=== PATIENT | female | born 1960 | race Caucasian/White ===

== ENCOUNTER 2016-09-18 12:10 | Inpatient (IN) | payer BC, OTHER ==
[2016-09-12 08:47] VITALS: BMI 50.0
--- NOTE | 2016-09-12 09:26 | PAT Medication Instructions ---
Service Date Sep 12, 2016. Current Home Medication List Aspirin (Aspirin Chewable), 81 MG PO QPM Atorvastatin (Lipitor), 40 MG PO QAM Bupropion (Wellbutrin), 75 MG PO QAM Carvedilol (Coreg), 12.5 MG PO BID Cholecalciferol (Vitamin D3), 1 TAB PO QAM Citalopram Hydrobromide (Citalopram Hydrobromide), 40 MG PO QAM Doxycycline Hyclate (Doxycycline Hyclate), 20 MG PO QAM Ferrous Sulfate (Iron Supplement *), 325 MG PO HS Fish Oil ([place]-3), 1 CAPSULES PO HS Furosemide (Lasix), 40 MG PO QAM Gabapentin (Neurontin), 600 MG PO TID Hydralazine HCl (Hydralazine HCl), 50 MG PO TID Insulin Aspart (Novolog Flexpen), UNITS SC UD Insulin Glargine (Lantus), 50 UNITS SQ QAM Insulin Glargine (Lantus), 40 UNITS SQ HS Levothyroxine Sodium (Synthroid), 100 MCG PO QAM Losartan Potassium (Cozaar), 50 MG PO QAM Metronidazole Hcl (Metrogel), 1 APPL TOP BID Multiple Vitamin (Multivitamin), 1 TAB PO HS Pantoprazole (Protonix), 40 MG PO QAM Medication Instructions For Your Scheduled Surgery - Check with surgeon/supervisor residential for instructions: Aspirin (Aspirin Chewable), 81 MG PO QPM - Hold the following medications starting 09/12/2016: Fish Oil ([place]-3), 1 CAPSULES PO HS - Hold the following medications 24 hours prior to surgery: Metronidazole Hcl (Metrogel), 1 APPL TOP BID - Hold the following medications the morning of surgery: Losartan Potassium (Cozaar), 50 MG PO QAM Insulin Aspart (Novolog Flexpen), UNITS SC UD Furosemide (Lasix), 40 MG PO QAM Cholecalciferol (Vitamin D3), 1 TAB PO QAM - Take the following medications the morning of surgery with a sip of water: Pantoprazole (Protonix), 40 MG PO QAM Levothyroxine Sodium (Synthroid), 100 MCG PO QAM Hydralazine HCl (Hydralazine HCl), 50 MG PO TID Gabapentin (Neurontin), 600 MG PO TID Atorvastatin (Lipitor), 40 MG PO QAM Bupropion (Wellbutrin), 75 MG PO QAM Carvedilol (Coreg), 12.5 MG PO BID Citalopram Hydrobromide (Citalopram Hydrobromide), 40 MG PO QAM Doxycycline Hyclate (Doxycycline Hyclate), 20 MG PO QAM - Take the following medications as scheduled the night before surgery: Multiple Vitamin (Multivitamin), 1 TAB PO HS Insulin Glargine (Lantus), 40 UNITS SQ HS Insulin Aspart (Novolog Flexpen), UNITS SC UD Hydralazine HCl (Hydralazine HCl), 50 MG PO TID Gabapentin (Neurontin), 600 MG PO TID Carvedilol (Coreg), 12.5 MG PO BID Ferrous Sulfate (Iron Supplement *), 325 MG PO HS - For Insulin Dependent Diabetic patients: Test blood sugar A.M. of surgery. - If Blood sugar greater than 150, take half of your regular dose of: Insulin Glargine (Lantus), 25 units - If blood sugar less than 150, do not take any: Insulin Glargine (Lantus ) If you have any questions please call us at [phone] (Stephanie Zelaya PA-C) or [phone] or [phone]
[2016-09-12 10:46] LABS: URINE APPEARANCE CLEAR (CLEAR); URINE BILIRUBIN NEG (NEG); URINE COLOR YELLOW; URINE NITRITE NEG (NEG); URINE SPECIFIC GRAVITY 1.003 (1.000-1.030); UROBILINOGEN NEG (NEG)
[2016-09-12 10:47] LABS: BASO % 0.4 %; BASO ABS # 0.04 K/uL (0-0.2); COMPLETE YES; EOS % 1.3 %; HEMATOCRIT 34.9 % (37-47); IG% 0.3 %; LYMPH % 35.7 %; LYMPH ABS # 3.19 K/uL (1.2-3.4); MEAN CELL VOLUME 89.7 fL (80-100); MEAN CORPUSCULAR HEMOGLOBIN 29.3 pg (25-34); MEAN CORPUSCULAR HGB CONC 32.7 g/dl (32-36); MONO % 7.5 %; NEUT % 54.8 %; PLATELET COUNT 237 K/uL (130-400); RED BLOOD COUNT 3.89 M/uL (4.2-5.4); WHITE BLOOD COUNT 8.93 K/uL (4.8-10.8)
[2016-09-12 10:53] LABS: MANUAL MICROSCOPIC REQUIRED? NO; REVIEW REQ? NO
[2016-09-12 11:18] LABS: BUN/CREATININE RATIO 29.2 (10-20); CALCIUM 9.9 mg/dl (8.5-10.1); CREATININE 1.6 mg/dl (0.60-1.20); POTASSIUM 4.6 mmol/L (3.5-5.1)
--- NOTE | 2016-09-17 10:46 | HISTORY & PHYSICAL EXAMINATION ---
DATE OF ADMISSION: 09/18/2016 HISTORY OF PRESENT ILLNESS: The patient presents as a 55-year-old, 68-inch, 290-pound white female with right knee pain as well as left anterior knee hematoma. She presents for right knee arthroscopy with partial meniscectomy and left knee excision of hematoma. She has been nonresponsive to conservative therapy. She had a fall and sustained the above injuries. She has been ambulating with a crutch as well as even been wheelchair bound due to the bilateral nature of the problems. PAST MEDICAL HISTORY: Consistent with that of congestive heart failure in the past, hypertension, hypercholesterolemia, 3-1/2 months ago recent pneumonia, sleep apnea for which she uses a home CPAP, anxiety, diabetes for which she has been treated with insulin, as well as anemia. SOCIAL HISTORY: Otherwise unremarkable or noncontributory. She denies history of alcohol, recreational drug use or smoking. PAST SURGICAL HISTORY: Significant for breast biopsy, skin cancer, arthroscopic surgery right knee. FAMILY HISTORY: Unremarkable or noncontributory. ALLERGIES: CHIDI INHIBITORS. MEDICATIONS: Include Lantus 100 units every day, gabapentin 600 mg t.i.d., hydralazine 50 oral t.i.d., carvedilol 12.5 one p.o. b.i.d., furosemide 20 mg daily, Synthroid 200 mcg daily, Humalog 100 units on sliding scale as needed, aspirin 81 mg daily, Wellbutrin 75 mg p.o. every day. REVIEW OF SYSTEMS: Otherwise unremarkable. See history of present illness for pertinent positives. PHYSICAL EXAMINATION: GENERAL: A very pleasant 55-year-old white female with complaints of right knee pain and left knee pain as noted above. She has been nonresponsive to conservative therapy. HEENT: Otherwise unremarkable, atraumatic, normocephalic. Alert and oriented x3. HEART: Regular rate at 70 beats per minute. No murmurs noted. LUNGS: Clear. No rales, rhonchi or wheezes noted. ABDOMEN: Soft, nontender, nondistended. Bowel sounds are present in all 4 quadrants. RECTAL: No rectal examination was performed. MUSCULOSKELETAL: Consistent with that of right knee pain. Exam consistent with that of a torn medial meniscus with positive Amor and circumduction findings noted. Left knee hematoma status post contusion and fall. PLAN: For evacuation of hematoma left anterior knee and right knee arthroscopy. Postoperative pain management, DVT prophylaxis, antibiotics as noted above. MTDD
[2016-09-18] VITALS (10 sets, daily range): BP systolic 128–168; BP diastolic 52–76; PULSE 58–70; TEMP 36.4–37.2; O2SAT 92–100; Ht 162.6 cm; Wt 133.1 kg
[~2016-09-18] VITALS: Ht 162.6 cm; Wt 133.1 kg
--- NOTE | 2016-09-18 11:57 | History & Physical Bridge Note ---
H&P Re-Evaluation Bridge Note: I have examined the patient, reviewed the History & Physical and in the interval since the performance of the History & Physical I have noted the following changes of clinical significance: No changes noted
[~2016-09-18 12:10] MED LIST: ASPCH81X PO; BUPR75TA20 PO; CARV12.5 PO; CEFAZOLIN 3000 MG/65 ML D5W IV SCH; CHOL1000 PO; CITA40TA4 PO; DOXY20TA3 PO; FRRS300 PO; FURO40TA3 PO; GABA600T PO; HYDR100T3 PO; INSDGI SQ; LACTATED RINGER'S 1000ML 1,000 ML IV SCH; LEVO100T PO; LOSA50TA6 PO; LPT/40 PO; METR1GEL16 TOP; MULTTAB58 PO; NVLGI/PEN SC; OMEG10007 PO; PANT40TA PO
[2016-09-18] MEDS ORDERED: FENTANYL CITRATE INJ 50 MCG/1 ML 2 ML VIAL ONE ×3 (12:56→15:41)
[2016-09-18] MEDS ORDERED: MIDAZOLAM HCL 1 MG/ML 2ML VIAL ONE (12:56)
[2016-09-18] MEDS ORDERED: BUPIVACAINE/EPINEPHRINE 0.5% MPF 1:200,000 30 ML VIAL ONE (14:11)
[2016-09-18] MEDS ORDERED: BUPIVACAINE 0.5 % 5 MG/1 ML MPF 30ML VIAL ONE (14:12)
[2016-09-18] MEDS ORDERED: LIDOCAINE/EPINEPHRINE 1% 20 ML VIAL ONE (14:12)
[2016-09-18] MEDS ORDERED: BUPIVACAINE/EPINEPHRINE 0.25% 1:200,000 30 ML VIAL ONE (14:12)
[2016-09-18] MEDS ORDERED: BACITRACIN OINT 15 GM TUBE ONE (14:12)
[2016-09-18] MEDS ORDERED: EpHEDrine SULFATE INJ 50 MG/ML AMP IV PRN (14:15)
[2016-09-18] MEDS ORDERED: FENTANYL CITRATE INJ 50 MCG/1 ML 2 ML VIAL IV PRN (14:15)
[2016-09-18] MEDS ORDERED: ONDANSETRON INJ 2 MG/ML 2 ML VIAL IV PRN ×2 (14:15→15:00)
[2016-09-18] MEDS ORDERED: ATROPINE SULFATE 0.1 MG/ML 5ML SYR IV PRN (14:15)
[2016-09-18] MEDS ORDERED: SODIUM CHLORIDE 0.9% 1000ML 1,000 ML IV SCH (14:54)
[2016-09-18] MEDS ORDERED: HYDR-5688 PO (14:57)
[2016-09-18] MEDS ORDERED: SUCCINYLCHOLINE 100MG/5ML SYR IV ONE (15:00)
[2016-09-18] MEDS ORDERED: HYDROCODONE/ACETAMOPHEN 5/325MG TAB PO PRN ×2 (15:00→19:45)
[2016-09-18] MEDS ORDERED: LIDOCAINE HCL 2% 2 ML VIAL (20MG/ML) ONE (15:00)
[2016-09-18] MEDS ORDERED: ONDANSETRON INJ 2 MG/ML 2 ML VIAL ONE (15:00)
[2016-09-18] MEDS ORDERED: DEXAMETHASONE SOD INJ 4 MG/ML VIAL ONE (15:00)
[2016-09-18] MEDS ORDERED: EpHEDrine SULFATE 50MG/5ML SYR ONE (15:00)
[2016-09-18] MEDS ORDERED: PROPOFOL IV EMULSION 10 MG/ML 20 ML VIAL IV ONE (15:00)
--- NOTE | 2016-09-18 15:05 | Discharge Instructions ---
Discharge Instructions Visit Reason for Visit: Right Knee Medial Meniscal Tear, Left Knee Hematom Discharge Discharge Diagnosis / Problem: right knee meniscus tear, left lower leg hematoma Discharge Goals Goal(s): Decrease discomfort, Improve function, Increase independence Activity Recommendations Activity Limitations: as noted below Weightbearing Status: Left weightbearing (as tolerated), Right weightbearing ( as tolerated) Anesthesia . Post Anesthesia Instructions: If you have had General Anesthesia or IV Sedation: * Do not drive today. * Resume driving when surgeon permits. * Do not make important decisions or sign legal documents today. * Call surgeon for: 1. Temperature elevations greater than 101 degrees F. 2. Uncontrollable pain. 3. Excessive bleeding. 4. Persistent nausea and vomiting. 5. Medication intolerance (nausea, vomiting or rash). * For nausea and vomiting use only clear liquids such as: tea, soda, bouillon until nausea subsides, then gradually increase diet as tolerated. * If you have any concerns or questions, call your surgeon's office. If physician is unavailable and it is an emergency, call 911 or go to the nearest emergency room. . Instructions / Follow-Up Instructions / Follow-Up ACTIVITY RECOMMENDATIONS: * You may walk on the leg with or without crutches as comfort permits. * Bending of the knee should start at once. * Do not shower for 48 hours following surgery. SPECIAL CARE INSTRUCTIONS: * You may cleanse the skin adjacent to the small wounds with soap and water at the time of the first dressing change. * The application of an ice bag to the front and sides of the knee will decrease swelling and discomfort for the first 48 hours. * The small incisions may be sore and develop bruising. This bruising does not require any special care. * Leave the dressing on the left left in place until your follow up on 09/20/16. you may remove the dressing on the right knee as discussed above. SPECIAL PRECAUTIONS: * If you experience unusual pain unrelieved by prescriptions, temperature elevation (100 degrees F. or above) or progressive swelling or bleeding, you should contact our office at for further evaluation. * You may have been prescribed pain medication. If you experience nausea and/or fine skin rash, discontinue this medication and contact our office at for an alternate medication. DRESSING: * Dressing should be comfortable and absorb any leakage of fluid and/or blood. * The dressing may become moist or bloodstained. * Dressing may be removed _48 hours_ after surgery and bandaids placed over the small surgical incisions. If can be removed sooner if it becomes very soiled or loose. * Bandaids may be used over next several days as needed and can be discontinued when there is not further drainage from the wounds. FOLLOW UP VISIT: Please follow up on 09/20/16 at 8:30 to have your drain removed You should have an appointment in two weeks for suture removal, if not already made, please call number below to schedule. Please call [facility] to make a follow-up appointment for your surgery at . Pending Studies Studies pending at discharge: no Medical Emergencies . Who to Call and When: Medical Emergencies: If at any time you feel your situation is an emergency, please call 911 immediately. . Non-Emergent Contact Non-Emergency issues call your: Primary Care Provider, Surgeon . . "Provider Documentation" section prepared by Luis Fernando Vallejo. [place] Drug Monitoring Program Search Results: patient reviewed within database, no issues identified
--- NOTE | 2016-09-18 15:32 | [facility] Post Operative Brief Note ---
Immediate Operative Summary Operative Date Sep 18, 2016. Pre-Operative Diagnosis Right Knee Torn Medial and Lateral Meniscus, Grade 4 Medial and Femoral Chondyle, Left Knee Hematoma Post-Operative Diagnosis Right Knee Torn Medial and Lateral Meniscus, Grade 4 Medial and Femoral Chondyle, Left Knee Hematoma Procedure(s) Performed Right Knee Arthroscopy with Partial Medial and Lateral Menisectomy, Left Knee Excision Hematoma (Anterior/Medial) Surgeon Dr. De La Cruz Manufacturing Operations Manager Surgeon(s) none Estimated Blood Loss 2cc rt 5 cc left Findings tmm rt knee hematoma left ant leg Specimens none per surgeon Complication(s) None Disposition Recovery Room / PACU
--- NOTE | 2016-09-18 16:35 | OPERATIVE REPORT ---
DATE OF OPERATION: 09/18/2016 PREOPERATIVE DIAGNOSES: Right knee torn medial meniscus, left anterior proximal tibia hematoma. POSTOPERATIVE DIAGNOSES: Right knee torn medial meniscus, torn lateral meniscus, grade 3 and 4 chondral lesion medial femoral condyle, patellofemoral joint; left knee hematoma anterior proximal tibia. SURGEON: Dr. De La Cruz. ANESTHESIA: General. COMPLICATIONS: None. GROSS FINDINGS: The patient is a very pleasant 55-year-old white female who presents after having had a fall, sustaining the above injuries and the hematoma which was not resolving. She presents for evacuation of hematoma as well as arthroscopy, right knee. DESCRIPTION OF PROCEDURE: After proper prepping and draping of the bilateral lower extremities, arthroscopic examination of the right knee reveals there to be evidence of a tear of the posterior horn of the medial meniscus as well as tear of the posterior horn of the lateral meniscus. Subsequently, partial posterior horn medial and lateral meniscectomies were performed. There was a chondral lesion grade 3 and 4 in nature involving the medial femoral condyle, 1 x 2 cm as well as 1 x 1 cm involving the patellofemoral joint. Subsequently, a chondroplasty was performed in both the compartments. All particulate matter and debris was removed. Skin portals were closed with 4-0 nylon. Sterile compressive dressing was placed. The left knee had a 2 cm incision placed over the proximal anteromedial tibia. Dissection through subcutaneous tissues revealed there to be evidence of a clot of hematoma material which was evacuated. It was irrigated with 3 liters of sterile saline solution. The wound was closed with 3-0 Vicryl and 3-0 nylon. A medium bore Hemovac was placed in the deep wound. Wound was subsequently dressed with sterile compressive dressings. The patient was taken to recovery room in stable condition. I attest to the content of the Intraoperative Record and any orders documented therein. Any exceptio ns are noted below.
--- NOTE | 2016-09-18 16:50 | Anesthesiology Progress Note ---
Anesthesia Post Op Note Date & Time Sep 18, 2016 at 16:50 Vital Signs Pain Intensity: 0 Vital Signs Past 12 Hours Date Time Temp Pulse Resp B/P Pulse Ox O2 Delivery O2 Flow Rate FiO2 09/18/16 16:30 60 13 160/69 99 Nasal Cannula 2 09/18/16 16:15 63 15 161/68 99 Nasal Cannula 2 09/18/16 16:05 36.7 64 16 156/68 100 Nasal Cannula 2 09/18/16 15:55 60 15 165/71 100 Mask 10 09/18/16 15:45 63 14 152/79 100 Mask 10 09/18/16 15:36 36.7 63 16 161/73 100 Mask 10 09/18/16 12:29 37.2 62 18 148/52 99 Room Air Notes Mental Status: alert / awake / arousable, participated in evaluation Pt Amnestic to Procedure: Yes Nausea / Vomiting: adequately controlled Pain: adequately controlled Airway Patency, RR, SpO2: stable & adequate BP & HR: stable & adequate Hydration State: stable & adequate Anesthetic Complications: no major complications apparent
[2016-09-18] MEDS: HYDROCODONE/ACETAMOPHEN 5/325MG TAB PO PRN (16:54)
[2016-09-18] MEDS ORDERED: NURSING VERBAL MED ORDER ONE ×2 (18:00→18:15)
[2016-09-18] MEDS ORDERED: MoRPHine SULFATE 2 MG/ML CARP ONE (18:05)
[2016-09-18] MEDS ORDERED: KETOROLAC TROMETHAMINE 30 MG/ML VIAL IV. PRN (18:15)
[2016-09-18] MEDS ORDERED: MoRPHine SULFATE 2 MG/ML CARP IV PRN (18:15)
[2016-09-18] MEDS ORDERED: PHARMACY GLYCEMIC MGMT CONSULT PRN (19:02)
[2016-09-18] MEDS ORDERED: GLUCAGON FOR INJ 1 MG VIAL SQ PRN (19:15)
[2016-09-18] MEDS ORDERED: GLUCOSE 40% GEL 15 GM TUBE PO PRN (19:15)
[2016-09-18] MEDS ORDERED: GLUCOSE 10 TABS/TUBE PO PRN (19:15)
[2016-09-18] MEDS ORDERED: DEXTROSE 50% 50 ML SYR IV PRN (19:15)
[2016-09-18] MEDS: INSULIN ASPART 100 UNITS/ML 3 ML PEN SC SCH ×2 (20:06→20:54)
--- NOTE | 2016-09-18 20:35 | Pharmacy Progress Note ---
Glycemic Control Intl Consult Date of Service Sep 18, 2016. Scope Glycemic Pharmacist consulted by Dr Valenzuela on 09/18/16 for glycemic control and to write orders per [facility] inpatient glycemic control protocol Objective Weight (Kilograms): 133.100 Accuchecks BSG (last 24hrs): Test 09/18/16 12:41 09/18/16 15:41 09/18/16 19:11 Bedside Glucose 223 mg/dl (70-90) 173 mg/dl (70-90) 185 mg/dl (70-90) HbA1c 7.2% in 05/2016 Recent Pertinent Medications Outpatient Anti-diabetic Regimen: * Lantus 50 units SQ AM + 40 units SQ PM * NovoLog per Scale as directed Risk Factors for Insulin Resistance: * Steroids pre-operatively * IVF * Recent Surgery * Diet Assessment & Plan ASSESSMENT: * 55yo T2DM female with presumed adequate outpatient diabetes control per recent A1c in 05/2016 (7.2%) * This result is outdated - will re-order per protocol * Pt is maintained on SQ basal bolus insulin regimen of 100+ units/day * Expect inpatient regimen to be slightly less than this based on controlled CHO/diet inhouse. Pt uses very large doses of basal insulin which may be covering some prandial needs considering her weight/BMI * Pt did receive one dose of dexamethasone IV intraoperatively. Steroids have their most profound effect on post-prandial hyperglycemia which is best controlled with NovoLog dosing per aggressive CF/CR. So far, BSGs only slightly above goal range despite dexamethasone. Will omit RTC checks + coverage. * ADA & AACE recommend a goal blood sugar range 140-180 mg/dl for the majority of critically ill & non-critically ill patients. However, more stringent targets may be selected in individual cases. Will utilize more stringent goal of 110-140mg/dl based on patient age & comorbidities. Additionally, tighter glycemic control is warranted to facilitate wound/infection healing post- operatively. PLAN FOR INPATIENT GLYCEMIC CONTROL: Resume SQ basal bolus insulin regimen similar to outpatient dosing - adjusted slightly for decreased PO intake as compared to outpatient and stress/surgery. * Basal insulin with LANTUS 30 units SQ BID * Correctional Insulin with NOVOLOG per scale ACHS or Q6hrs while NPO * Goal Range: Low 110 mg/dL - High 140 mg/dL * Correction Factor: 10 mg/dL/unit * Nutritional / Prandial insulin per carb ratio of 1 unit per 4 grams CHO consumed * Titrate insulin regimen based on BSG trends and changes in risk factors for insulin resistance * Order A1c with AM labs per protocol * Add to discharge instructions to be communicated to PCP * Please note that the plan above was derived based on current level of insulin resistance and hospital stress. These recommendations are appropriate for inpatient admission only. Plan of care upon discharge will need to be reassessed to avoid potential outpatient hypo/hyperglycemia. Thank you.
[2016-09-18] MEDS: OXYCODONE HCL IR 5 MG TAB (IMMEDIATE RELEASE) PO PRN (20:46)
[2016-09-18] MEDS: GABAPENTIN 600 MG TAB PO SCH (20:52)
[2016-09-18] MEDS: CARVEDILOL 12.5 MG TAB PO SCH (20:53)
[2016-09-18] MEDS: METRONIDAZOLE 0.75% TOPICAL GEL 45 GM TUBE TOP SCH (20:55)
[2016-09-18] MEDS ORDERED: FERROUS SULFATE 325 MG TAB PO SCH (21:00)
[2016-09-18] MEDS ORDERED: INSULIN GLARGINE SOLOSTAR 100 UNITS/ML 3 ML PEN SC SCH ×2 (21:00)
[2016-09-18] MEDS ORDERED: ASPIRIN 81 MG ECTAB PO SCH (21:00)
[2016-09-18] MEDS ORDERED: INSULIN GLARGINE SOLOSTAR 100 UNITS/ML 3 ML PEN SC ONE (21:15)
[2016-09-19] MEDS: OXYCODONE HCL IR 5 MG TAB (IMMEDIATE RELEASE) PO PRN (02:30)
[2016-09-19 03:25] VITALS: BP 127/72; PULSE 68; TEMP 36.7; O2SAT 91
[2016-09-19] MEDS ORDERED: LEVOTHYROXINE 100 MCG TAB PO SCH (06:00)
[2016-09-19 07:14] VITALS: BP 152/71; PULSE 65; TEMP 36.6; O2SAT 95
--- NOTE | 2016-09-19 07:51 | Orthopedic Progress Note ---
Orthopedic Progress Note Date of Service Sep 19, 2016. Subjective Post OP Day: 1 Reports: feeling well, pain controlled w PO medications, Denies: SOB, calf pain , chest pain, complaints, light headedness, nausea / vomiting Objective calves soft nontender, N/V intact, capillary refill less than 2 sec., dressing C /D/I, A&O x3, toes mobile Date Time Temp Pulse Resp B/P Pulse Ox O2 Delivery O2 Flow Rate FiO2 09/19/16 07:14 36.6 65 16 152/71 95 Room Air 09/19/16 03:25 36.7 68 16 127/72 91 Room Air 09/18/16 23:20 36.4 61 16 128/69 94 Room Air 09/18/16 21:35 36.5 58 16 130/75 92 Room Air 09/18/16 20:46 37.1 62 18 133/76 95 Room Air 09/18/16 19:59 36.7 58 16 133/75 99 Nasal Cannula 2.0 09/18/16 19:30 Nasal Cannula 2.0 09/18/16 19:19 99 Nasal Cannula 2.0 09/18/16 19:19 37.0 63 16 133/74 100 Nasal Cannula 09/18/16 18:55 37.2 70 16 162/75 99 Nasal Cannula 2.0 09/18/16 18:00 37.1 68 18 163/64 98 Nasal Cannula 2 09/18/16 17:10 37.1 59 18 168/68 99 Nasal Cannula 2 09/18/16 16:40 37.1 62 16 147/63 99 Nasal Cannula 2 09/18/16 16:30 60 13 160/69 99 Nasal Cannula 2 09/18/16 16:15 63 15 161/68 99 Nasal Cannula 2 09/18/16 16:05 36.7 64 16 156/68 100 Nasal Cannula 2 09/18/16 15:55 60 15 165/71 100 Mask 10 09/18/16 15:45 63 14 152/79 100 Mask 10 09/18/16 15:36 36.7 63 16 161/73 100 Mask 10 09/18/16 12:29 37.2 62 18 148/52 99 Room Air Assessment & Plan Assessment: POD #1 s/p right knee scope, left tibia hematoma i&d -pain better controlled -stable for d/c this morning -will change dressings and remove drain prior to d/c
[2016-09-19 08:10] LABS: ESTIMATED AVERAGE GLUCOSE 166 mg/dl; HA1C FLAG Normal (Normal)
[2016-09-19] MEDS: CARVEDILOL 12.5 MG TAB PO SCH (08:32)
[2016-09-19] MEDS: GABAPENTIN 600 MG TAB PO SCH (08:33)
[2016-09-19] MEDS: METRONIDAZOLE 0.75% TOPICAL GEL 45 GM TUBE TOP SCH (08:37)
[2016-09-19] MEDS ORDERED: CITALOPRAM 40 MG TAB PO SCH (09:00)
[2016-09-19] MEDS ORDERED: FUROSEMIDE 40 MG TAB PO SCH (09:00)
[2016-09-19] MEDS ORDERED: PANTOprazole SOD 40 MG TAB PO SCH (09:00)
[2016-09-19] MEDS ORDERED: OMEGA-3 (PURIFIED FISH OIL) 1 GM CAP PO SCH (09:00)
[2016-09-19] MEDS ORDERED: CHOLECALCIFEROL 1000 INTER.UNIT TAB PO SCH (09:00)
[2016-09-19] MEDS ORDERED: ATORVASTATIN 40 MG TAB PO SCH (09:00)
[2016-09-19] MEDS ORDERED: INSULIN GLARGINE SOLOSTAR 100 UNITS/ML 3 ML PEN SC SCH ×2 (09:00→21:00)
[2016-09-19] MEDS ORDERED: MULTIVITAMIN TAB PO SCH (09:00)
[2016-09-19] MEDS ORDERED: LOSARTAN POTASSIUM 50 MG TAB PO SCH (09:00)
[2016-09-19] MEDS: INSULIN ASPART 100 UNITS/ML 3 ML PEN SC SCH (09:20)
[2016-09-19 09:52] VITALS: BP 152/71; PULSE 65; TEMP 36.6; O2SAT 95
[2016-09-19] MEDS: HYDROCODONE/ACETAMOPHEN 5/325MG TAB PO PRN (10:07)
--- NOTE | 2016-09-24 17:47 | Discharge Summary ---
Orthopedic Discharge Summary Admission Date/Reason Sep 18, 2016 at 12:20 Right Knee Medial Meniscal Tear, Left Knee Hematom. Discharge Date/Disposition Sep 19, 2016 Home Diagnosis Principal Diagnosis: right knee scope partial meniscectomy, evacuation hematoma left lower leg Procedure(s) Performed Right Knee Arthroscopy with Partial Medial and Lateral Menisectomy, Left Knee Excision Hematoma (Anterior/Medial) Consultations NONE Medication Reconciliation New Medications: Hydrocodone/Acetaminophen 5MG/325MG ([place] 5MG/325MG) Tab 1-2 TABLETS PO q4-6 hours PRN for Pain, #30 TAB Continued Medications: Aspirin (Aspirin Chewable) 81 Mg Chew 81 MG PO QPM, TAB Atorvastatin (Lipitor) 40 Mg Tab 40 MG PO QAM, TAB Bupropion (Wellbutrin) 75 Mg Tab 75 MG PO QAM, TAB Carvedilol (Coreg) 12.5 Mg Tab 12.5 MG PO BID, TAB Cholecalciferol (Vitamin D3) 1,000 Unit Tab 1 TAB PO QAM for 30 Days, #30 TAB 5 Refills Citalopram Hydrobromide (Citalopram Hydrobromide) 40 Mg Tab 40 MG PO QAM Doxycycline Hyclate (Doxycycline Hyclate) 20 Mg Tab 20 MG PO QAM Ferrous Sulfate (Iron Supplement *) 325 Mg Tab 325 MG PO HS, 0 Refills Fish Oil ([place]-3) 1 Ea Cap 1 CAPSULES PO HS, 0 Refills Furosemide (Lasix) 40 Mg Tab 40 MG PO QAM, TAB Gabapentin (Neurontin) 600 Mg Tab 600 MG PO TID, TAB Hydralazine HCl (Hydralazine HCl) 100 Mg Tab 50 MG PO TID Insulin Aspart (Novolog Flexpen) 100 Units/Ml Inj UNITS SC UD Inject as directed per sliding scale. Insulin Glargine (Lantus) 100 Unit/Ml Inj 50 UNITS SQ QAM Insulin Glargine (Lantus) Vial 40 UNITS SQ HS, VIAL Levothyroxine Sodium (Synthroid) 100 Mcg Tab 100 MCG PO QAM, TAB Losartan Potassium (Cozaar) 50 Mg Tab 50 MG PO QAM, TAB Metronidazole Hcl (Metrogel) 180 Appln/60 Gm Gel 1 APPL TOP BID TO FACIAL BUMPS Multiple Vitamin (Multivitamin) 1 Tab Tab 1 TAB PO HS, TAB Pantoprazole (Protonix) 40 Mg Tab 40 MG PO QAM, #30 TAB Admission Physical Exam As per Admitting History & Physical. Hospital Course please see daily progress notes for complete details. Discharge Instructions Please refer to the electronic Patient Visit Report (Discharge Instructions) for additional information.
[2016-12-22] MEDS ORDERED: PRT/40 PO (07:11)
[2016-12-22] MEDS ORDERED: DAPA1TAB2 PO (07:13)
[2016-12-23] MEDS ORDERED: INSDGI SQ (13:41)
[2016-12-23] MEDS ORDERED: PANT1TAB48 PO (17:23)
== END 2016-09-19 10:35 | disposition home or self-care (01) | DRG 489 ==
LOC: ENRESERVTM → ENRESERVDT → C.ACU 12:10 → C.3E 12:20
PROVIDERS: ADMIT Orthopaedic Surgery; ATTEND Orthopaedic Surgery
PROC: 0SBC4ZZ Excision of Right Knee Joint, Percutaneous Endoscopic Approach (ICD-10-PCS; principal; 2016-09-18 14:00)
PROC: 0QC Lower Bones, Extirpation (ICD-10-PCS; principal; 2016-09-18 14:00)
DX: S83.241A Other tear of medial meniscus, current injury, right knee, initial encounter (principal); S83.281A Other tear of lateral meniscus, current injury, right knee, initial encounter; M94.8X6 Other specified disorders of cartilage, lower leg; T14.8 Other injury of unspecified body region; I11.0 Hypertensive heart disease with heart failure; I50.9 Heart failure, unspecified; G47.30 Sleep apnea, unspecified; E11.9 Type 2 diabetes mellitus without complications; Z79.899 Other long term (current) drug therapy; Z79.4 Long term (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 insulin; Z79.82 Long term (current) use of aspirin; Z87.01 Personal history of pneumonia (recurrent); Z85.828 Personal history of other malignant neoplasm of skin; W19.XXXA Unspecified fall, initial encounter; Y99.8 Other external cause status

== ENCOUNTER → 2016-11-13 | Outpatient (CLI) | payer BC ==
[~2016-11-13] MED LIST changes: +CALC-20 PO; +CALC1CAP36 PO; -CEFAZOLIN 3000 MG/65 ML D5W IV SCH; +CLOB-77 TOP; +DAPA1TAB8 PO; +FRS/40 PO; +FURO-85 PO; +HYDR-5688 PO; +INSDGI SC; +INSU100I SQ; +ISOS60TA25 PO; -LACTATED RINGER'S 1000ML 1,000 ML IV SCH; +METF-384 PO; +METR0.7527; +METROGEL 1%; +PANT1TAB48 PO; +PANT40TA2 PO; +SIMV20TA2 PO; +TRAM-10 PO; +WLLSR100 PO
--- NOTE | 2016-11-13 13:15 | DIAGNOSTIC IMAGING REPORT ---
ULTRASOUND LEFT LOWER EXTREMITY VENOUS CLINICAL HISTORY: Left leg pain and swelling. COMPARISON STUDY: Bilateral lower extremity venous ultrasound dated 02/23/2013. TECHNIQUE: Real-time, grayscale, and color Doppler sonography of the deep veins of the left lower extremity was performed from the inguinal crease to the calf. Compression and augmentation were utilized. FINDINGS: There is no sonographic evidence of deep venous thrombosis identified in the left lower extremity. The common femoral, superficial femoral, and popliteal veins are patent and normally compressible. The greater saphenous vein and the profunda femoris vein at the junction with the common femoral vein are clear. The visualized calf veins are patent. IMPRESSION: There is no sonographic evidence of deep venous thrombosis identified in the left lower extremity. Electronically signed by: Marco Antonio Martins M.D. 11/13/2016 1:13 PM Dictated Date/Time: 11/13/2016 1:13 PM
== END | disposition home or self-care (01) ==
LOC: C.ULTRBC 12:49
PROVIDERS: ATTEND Physician Assistant
DX: M79.662 Pain in left lower leg (principal); M79.89 Other specified soft tissue disorders

== ENCOUNTER 2016-12-22 05:59 | Observation (INO) | payer BC ==
[2016-12-22] VITALS (8 sets, daily range): BP systolic 132–145; BP diastolic 54–78; PULSE 51–59; TEMP 36.4–36.7; O2SAT 95–98; Ht 162.6 cm; Wt 132.4 kg
[~2016-12-22] VITALS: Ht 162.6 cm; Wt 132.4 kg
[~2016-12-22 05:59] MED LIST changes: -CALC-20 PO; -CALC1CAP36 PO; -CLOB-77 TOP; -DAPA1TAB8 PO; -FRS/40 PO; -FURO-85 PO; -INSDGI SC; -INSU100I SQ; -ISOS60TA25 PO; -METF-384 PO; -METR0.7527; -METROGEL 1%; -PANT1TAB48 PO; -PANT40TA2 PO; -SIMV20TA2 PO; -TRAM-10 PO; -WLLSR100 PO
[2016-12-22] MEDS ORDERED: MoRPHine SULFATE 4 MG/ML 1 ML CARP\\VIAL IV STA (06:23)
[2016-12-22] MEDS ORDERED: ASPIRIN 324 MG CHEW PO STA (06:23)
[2016-12-22] MEDS ORDERED: ONDANSETRON INJ 2 MG/ML 2 ML VIAL IV STA (06:24)
[2016-12-22] MEDS ORDERED: NITROGLYCERIN 0.4 MG SL PER TAB CHARGE ONE (06:33)
--- NOTE | 2016-12-22 06:46 | EMERGENCY ROOM VISIT NOTE ---
History First contact with patient: 06:37 Chief Complaint: SHORTNESS OF BREATH Stated Complaint: HARD TIME BREATHING,HX OF HEART FAILURE Nursing Triage Summary: Pt presents for evaluation of sob and increased swelling in B/L LE. Increased edema x 1 week, primary increased lasix dose. This am awoke with increased sob. History of Present Illness The patient is a 56 year old female who presents to the Emergency Room with complaints of chest pain and shortness of breath starting this morning at 4: 30am. Chest pain woke her up, sharp on deep breathing and reproducible. No radiation. No cough, cold, fever. Associated with sweating and shortness of breath. She currently feels as if she cannot catch her breath. She reportedly had a normal cardiac cath 2 years previously, stress test 1 year previously was also normal and she is scheduled for a stress test tomorrow as pre-op workup for bariatric surgery. She took all her usual morning medications. She denies any orthopnea, PND or palpitations. She has noticed an increase in her leg swelling bilaterally over the last week. Father had x2 MIs in his 40's with CABG and stents placed and her sister has lots of heart issues (pacemaker, [place]). Review of Systems GENERAL: weight gain 12lb in the last week, trying to current lose weight for bariatric surgery EENT: normal NEURO: feels weak on her right side with change in sensation and confused but unable to elaborate on this CARDIO: see HPI PULM: no cough, fever, GI: acid reflux, denies abdominal pain, change in bowel habit or GI bleeding : passing more urine than normal, increased smell and darker in color, since last Fri. MSK: Denies musculoskeletal pain Psych: depression under control with medication Past Medical/Surgical History Medical Problems: (1) CHRONIC KIDNEY DISEASE, STAGE III (MODERATE) (2) CONGESTIVE HEART FAILURE NOS (3) DEPRESSIVE DISORDER NEC (4) DIAB JOSE A WO COMPL, TYPE II OR UNSPEC TYPE, NOT UNCNTRLD (5) DIABETIC RETINOPATHY NOS (6) DIVERTICULOSIS COLON (W/O MENT OF HEMORRHAGE) (7) Endometrial carcinoma (8) History of melanoma (9) HYPERLIPIDEMIA NEC/NOS (10) HYPERTENSION NOS (11) HYPOTHYROIDISM NOS (12) IRON DEFIC ANEMIA NOS (13) LUMBOSACRAL SPONDYLOSIS (14) MORBID OBESITY (15) NEUROPATHY IN DIABETES (16) ROSACEA (17) SOB (shortness of breath) Surgical Problems: (1) Abdominal hysterectomy (2) H/O esophagogastroduodenoscopy (3) Hx of cardiac cath (4) S/P knee surgery (5) Tonsillectomy Family History Cancer FATHER (Melenoma ) Diabetes mellitus Heart disease FATHER SISTER Hypertension Lung disease Social History Smoking Status: Never Smoker Smokeless Tobacco Use: No Alcohol Use: occasionally Drug Use: none Marital Status: Housing Status: lives with family Occupation Status: employed Current/Historical Medications Scheduled Aspirin (Aspirin Chewable), 81 MG PO QPM Bupropion HCl (Bupropion HCl Sr), 200 MG PO DAILY Calcitriol (Calcitriol), PO UD Calcium Carbonate-Vitamin D (Calcium 600 + D), 1 TAB PO DAILY Carvedilol (Coreg), 12.5 MG PO BID Cholecalciferol (Vitamin D3), 1 TAB PO QAM Citalopram Hydrobromide (Citalopram Hydrobromide), 40 MG PO QAM Clobetasol Propionate (Temovate), 1 APPLN TOP DAILY Dapagliflozin Propanediol (Farxiga), 10 MG PO DAILY Ferrous Sulfate (Ferrous Sulfate), 325 MG PO DAILY Fish Oil ([place]-3), 1 CAP PO DAILY Furosemide (Lasix), 40 MG PO UD Gabapentin (Neurontin), 600 MG PO TID Hydralazine HCl (Hydralazine HCl), 50 MG PO TID Insulin Glargine (Lantus), 100 UNITS SQ DAILY Insulin Lispro (Human) (Humalog), SQ ACHS Isosorbide Mononitrate Ext Rel (Imdur Ext Rel), 60 MG PO QAM Levothyroxine Sodium (Synthroid), 100 MCG PO QAM Metformin Hcl (Glucophage), 1,000 MG PO DAILY Multiple Vitamin (Multivitamin), 1 TAB PO HS Pantoprazole (Pantoprazole Sodium), 40 MG PO DAILY Simvastatin (Zocor), 20 MG PO QPM [Metrogel 1%], 1 APPLN DAILY Scheduled PRN Tramadol (Ultram), 50 MG PO Q4H PRN for Pain Allergies Coded Allergies: CHIDI Inhibitors (Verified Adverse Reaction, Mild, COUGH, 12/22/16) Physical Exam Vital Signs Date Time Temp Pulse Resp B/P (MAP) Pulse Ox O2 Delivery O2 Flow Rate FiO2 12/22/16 08:29 56 12/22/16 07:22 55 16 153/73 97 Room Air 12/22/16 07:08 57 18 157/53 97 Room Air 12/22/16 06:21 58 12/22/16 06:18 100 Room Air 12/22/16 06:10 99 Room Air 12/22/16 06:10 36.3 58 18 180/75 99 Room Air Pain Rating (0-10): 5 Physical Exam VITAL SIGNS: were reviewed as above GENERAL: obese female lying in bed, out of proportion pain on cannula insertion , hyperventilating, no acute distress SKIN: Warm dry and pink, no rashes HEAD: Normocephalic and atraumatic EYES: extraocular muscles intact, pupils equal and reactive to light OROPHARYNX: non erythematous, clear and moist NECK: Supple, no adenopathy or meningismus LUNGS: clear to auscultation, no accessory muscle use, hyperventilating HEART: Regular rate and rhythm, heart sounds 1+2, no murmurs ABDOMEN: Soft with mild epigastric and left upper quadrant and suprapubic without guarding or rebound tenderness, bowel sounds normal BACK: mild left sided CVA tenderness, none right sided EXTREMITIES: Warm and well perfused, no calf tenderness, chronic increased swelling on left side compared to right, pitting edema b/l 2+ to knees. NEUROLOGICALLY: Awake alert and oriented without focal deficit. Cranial nerves 2 -12 intact. Cerebellar testing is within normal limits. There is no nystagmus. There is no facial droop. Speech is clear. Vision is grossly normal. MUSCULOSKELETAL: Good muscle tone. No evidence of trauma Medical Decision & Procedures ER Provider Diagnostic Interpretation: SINGLE VIEW CHEST CLINICAL HISTORY: Atypical chest pain. Dyspnea. FINDINGS: An AP, portable, upright chest radiograph is compared to study dated 06/09/2016. The examination is degraded by portable technique, large body habitus, and patient rotation. The cardiomediastinal silhouette is unremarkable. There is mild atherosclerotic calcification of the thoracic aorta. The lungs and pleural spaces are clear. No pneumothorax is seen. The skeletal structures are osteopenic. Degenerative change is noted in the thoracic spine. IMPRESSION: No active disease in the chest. Electronically signed by: Marco Antonio aMrtins M.D. 12/22/2016 7:52 AM Dictated Date/Time: 12/22/2016 7:52 AM Laboratory Results 12/22/16 06:50 Red Blood Count 4.25, Mean Corpuscular Volume 89.2, Mean Corpuscular Hemoglobin 27.5, Mean Corpuscular Hemoglobin Concent 30.9, Mean Platelet Volume 9.7, Neutrophils (%) (Auto) 56.7, Lymphocytes (%) (Auto) 34.3, Monocytes (%) (Auto) 6.9, Eosinophils (%) (Auto) 1.6, Basophils (%) (Auto) 0.3, Neutrophils # (Auto) 5.35, Lymphocytes # (Auto) 3.23, Monocytes # (Auto) 0.65, Eosinophils # (Auto) 0.15, Basophils # (Auto) 0.03 12/22/16 06:50 Test 12/22/16 00:00 12/22/16 06:13 12/22/16 06:50 12/22/16 07:35 Urine Color YELLOW Urine Appearance CLEAR (CLEAR) Urine pH 7.0 (4.5-7.5) Urine Specific [place] 1.009 (1.000-1.030) Urine Protein NEG (NEG) Urine Glucose (UA) NEG (NEG) Urine Ketones NEG (NEG) Urine Occult Blood NEG (NEG) Urine Nitrite NEG (NEG) Urine Bilirubin NEG (NEG) Urine Urobilinogen NEG (NEG) Urine Leukocyte Esterase NEG (NEG) Urine WBC (Auto) 1-5 /hpf (0-5) Urine RBC (Auto) 0-4 /hpf (0-4) Urine Hyaline Casts (Auto) 0 /lpf (0-5) Urine Epithelial Cells (Auto) 5-10 /lpf (0-5) Urine Bacteria (Auto) NEG (NEG) Bedside Glucose 96 mg/dl (70-90) White Blood Count 9.43 K/uL (4.8-10.8) Red Blood Count 4.25 M/uL (4.2-5.4) Hemoglobin 11.7 g/dL (12.0-16.0) Hematocrit 37.9 % (37-47) Mean Corpuscular Volume 89.2 fL (80-100) Mean Corpuscular Hemoglobin 27.5 pg (25-34) Mean Corpuscular Hemoglobin Concent 30.9 g/dl (32-36) Platelet Count 286 K/uL (130-400) Mean Platelet Volume 9.7 fL (7.4-10.4) Neutrophils (%) (Auto) 56.7 % Lymphocytes (%) (Auto) 34.3 % Monocytes (%) (Auto) 6.9 % Eosinophils (%) (Auto) 1.6 % Basophils (%) (Auto) 0.3 % Neutrophils # (Auto) 5.35 K/uL (1.4-6.5) Lymphocytes # (Auto) 3.23 K/uL (1.2-3.4) Monocytes # (Auto) 0.65 K/uL (0.11-0.59) Eosinophils # (Auto) 0.15 K/uL (0-0.5) Basophils # (Auto) 0.03 K/uL (0-0.2) RDW Standard Deviation 44.1 fL (36.4-46.3) RDW Coefficient of Variation 13.6 % (11.5-14.5) Immature Granulocyte % (Auto) 0.2 % Immature Granulocyte # (Auto) 0.02 K/uL (0.00-0.02) Prothrombin Time 10.7 SECONDS (9.0-12.0) Prothromb Time International Ratio 1.0 (0.9-1.1) Activated Partial Thromboplast Time 30.5 SECONDS (21.0-31.0) Partial Thromboplastin Ratio 1.2 D-Dimer 320 ug/L FEU (0-500) Anion Gap 10.0 mmol/L (3-11) Est Creatinine Clear Calc Drug Dose 57.1 ml/min Estimated GFR () 44.1 Estimated GFR (Non- 38.0 BUN/Creatinine Ratio 32.5 (10-20) Calcium Level 9.6 mg/dl (8.5-10.1) Total Bilirubin 0.4 mg/dl (0.2-1) Aspartate Amino Transf (AST/SGOT) 19 U/L (15-37) Alanine Aminotransferase (ALT/SGPT) 25 U/L (12-78) Alkaline Phosphatase 88 U/L (45-117) Troponin I < 0.015 ng/ml (0-0.045) Total Protein 7.8 gm/dl (6.4-8.2) Albumin 3.7 gm/dl (3.4-5.0) Globulin 4.1 gm/dl (2.5-4.0) Albumin/Globulin Ratio 0.9 (0.9-2) Lipase 139 U/L (73-393) Chemistry Specimen Hemolysis Venous Blood pH 7.48 (7.36-7.41) Venous Blood Partial Pressure CO2 38 mmHg (38.0-50.0) Venous Blood Partial Pressure O2 32 mmHg Venous Blood HCO3 28 mmol/L Venous Blood Oxygen Saturation 64.7 % Venous Blood Base Excess 4.1 mmol/L Medications Administered Medications (Trade) Dose Ordered Sig/Christina Route Start Time Stop Time Status Last Admin Dose Admin Aspirin (Aspirin Chew) 243 mg NOW STAT PO 12/22/16 06:23 12/22/16 06:25 DC 12/22/16 06:23 243 MG Morphine Sulfate (MoRPHine SULFATE INJ) 4 mg NOW STAT IV 12/22/16 06:23 12/22/16 06:25 DC 12/22/16 07:11 4 MG Ondansetron HCl (Zofran Inj) 4 mg NOW STAT IV 12/22/16 06:24 12/22/16 06:25 DC 12/22/16 07:11 4 MG Nitroglycerin (Nitrostat Tab) 0.4 mg STK-MED ONCE .ROUTE 12/22/16 06:33 12/22/16 06:34 DC 12/22/16 06:33 0.4 MG Lorazepam (Ativan Tab) 0.5 mg NOW STAT SL 12/22/16 07:13 12/22/16 07:14 DC 12/22/16 07:19 0.5 MG Miscellaneous Medication (Gi Cocktail) 24 ml ONE STAT PO 12/22/16 07:43 12/22/16 07:46 DC 12/22/16 07:43 24 ML Al Hydroxide/Mg Hydroxide (Maalox Susp) 30 ml STK-MED ONCE .ROUTE 12/22/16 07:50 12/22/16 07:51 DC 12/22/16 07:56 30 ML Lidocaine HCl (Viscous Lidocaine 2% Soln) 20 ml STK-MED ONCE .ROUTE 12/22/16 07:50 12/22/16 07:51 DC 12/22/16 07:57 10 ML ECG Indication: chest pain Rate (beats per minute): 60 Rhythm: sinus rhythm Findings: Q waves (Inferior) Change: no significant change ED Course Patient history and examination at 6:20am and basic labs and CXR orders placed. Precepted with Dr Gibbons at 6:40am Patient reassessed at 7:40am, chest pain still intermittent. Feels her voice is lower and throat is sore. Possibility of GERD given history of this therefore GI cocktail ordered. 8:05am discussed with Dr Gibbons, decision to admit for chest pain rule out. Discussed with Dr. Malhotra 8:13am who accepted the patient for further management. Medical Decision Chest pain with associated shortness of breath with diabetes and strong family history concerning for GA however her symptoms are not typical of this. Unable to completely rule this out in the ER therefore recommend assessment for admission for chest pain rule out. Most likely diagnosis is anxiety attack or gastro-esophageal reflux. Impression Primary Impression: Anxiety Departure Information Dispostion Being Evaluated By Hospitalist Condition FAIR Referrals Luis Fernando Rojas M.D. (PCP) Patient Instructions My [facility] Resident Tracking Resident Involvement: Resident Care Provided Care Provided: Adult ED
[2016-12-22] MEDS ORDERED: NITROGLYCERIN 0.4 MG SL PER TAB CHARGE SL PRN ×2 (07:00→08:30)
[2016-12-22 07:04] LABS: BASO % 0.3 %; BASO ABS # 0.03 K/uL (0-0.2); COMPLETE YES; EOS % 1.6 %; HEMATOCRIT 37.9 % (37-47); IG% 0.2 %; LYMPH % 34.3 %; LYMPH ABS # 3.23 K/uL (1.2-3.4); MEAN CELL VOLUME 89.2 fL (80-100); MEAN CORPUSCULAR HEMOGLOBIN 27.5 pg (25-34); MEAN CORPUSCULAR HGB CONC 30.9 g/dl (32-36); MEAN PLATELET VOLUME 9.7 fL (7.4-10.4); MONO % 6.9 %; NEUT % 56.7 %; PLATELET COUNT 286 K/uL (130-400); RED BLOOD COUNT 4.25 M/uL (4.2-5.4); WHITE BLOOD COUNT 9.43 K/uL (4.8-10.8)
[2016-12-22] MEDS ORDERED: FRS/40 PO (07:08)
[2016-12-22] MEDS ORDERED: CALC1CAP36 PO (07:08)
[2016-12-22] MEDS ORDERED: WLLSR100 PO (07:11)
[2016-12-22] MEDS ORDERED: PANT40TA2 PO (07:11)
[2016-12-22] MEDS ORDERED: INSU100I SQ (07:12)
[2016-12-22] MEDS ORDERED: LORAZEPAM 0.5 MG TAB SL STA (07:13)
[2016-12-22] MEDS ORDERED: DAPA1TAB8 PO (07:13)
[2016-12-22] MEDS ORDERED: SIMV20TA2 PO (07:14)
[2016-12-22] MEDS ORDERED: TRAM-10 PO (07:14)
[2016-12-22] MEDS ORDERED: ISOS60TA25 PO (07:14)
[2016-12-22] MEDS ORDERED: METF-384 PO (07:15)
[2016-12-22 07:16] LABS: PARTIAL THROMBOPLASTIN RATIO 1.2; PROTHROMBIN TIME (PATIENT) 10.7 SECONDS (9.0-12.0)
[2016-12-22] MEDS ORDERED: OMEG10007 PO (07:16)
[2016-12-22] MEDS ORDERED: FRRS300 PO (07:16)
[2016-12-22] MEDS ORDERED: CALC-20 PO (07:17)
[2016-12-22] MEDS ORDERED: CLOB-77 TOP (07:18)
[2016-12-22] MEDS ORDERED: METROGEL 1% (07:18)
[2016-12-22 07:33] LABS: ALT/SGPT 25 U/L (12-78); AST/SGOT 19 U/L (15-37); BLOOD UREA NITROGEN 49 mg/dl (7-18); BUN/CREATININE RATIO 32.5 (10-20); CALCIUM 9.6 mg/dl (8.5-10.1); CARBON DIOXIDE 27 mmol/L (21-32); CHLORIDE 105 mmol/L (98-107); GLUCOSE 89 mg/dl (70-99); POTASSIUM 4.1 mmol/L (3.5-5.1); SODIUM 142 mmol/L (136-145)
[2016-12-22 07:38] LABS: ALB/GLOB RATIO 0.9 (0.9-2); ALKALINE PHOSPHATASE 88 U/L (45-117)
[2016-12-22] MEDS ORDERED: GI COCKTAIL PO STA (07:43)
[2016-12-22 07:46] LABS: VEN BLD GAS O2 SATURATION 64.7 %; VEN BLOOD GAS BASE EXCESS 4.1 mmol/L
[2016-12-22] MEDS ORDERED: LIDOCAINE HCL 2% VISC SOLN 20 ML UDC ONE (07:50)
[2016-12-22] MEDS ORDERED: ALUMINUM/MAGNESIUM SUSP 30 ML UDC ONE (07:50)
--- NOTE | 2016-12-22 07:53 | DIAGNOSTIC IMAGING REPORT ---
SINGLE VIEW CHEST CLINICAL HISTORY: Atypical chest pain. Dyspnea. FINDINGS: An AP, portable, upright chest radiograph is compared to study dated 06/09/2016. The examination is degraded by portable technique, large body habitus, and patient rotation. The cardiomediastinal silhouette is unremarkable. There is mild atherosclerotic calcification of the thoracic aorta. The lungs and pleural spaces are clear. No pneumothorax is seen. The skeletal structures are osteopenic. Degenerative change is noted in the thoracic spine. IMPRESSION: No active disease in the chest. Electronically signed by: Marco Antonio Martins M.D. 12/22/2016 7:52 AM Dictated Date/Time: 12/22/2016 7:52 AM
[2016-12-22 08:11] LABS: URINE APPEARANCE CLEAR (CLEAR); URINE BILIRUBIN NEG (NEG); URINE COLOR YELLOW; URINE NITRITE NEG (NEG); URINE SPECIFIC GRAVITY 1.009 (1.000-1.030); UROBILINOGEN NEG (NEG); ZZUR CULT IF INDIC CLEAN CATCH NO
[2016-12-22 08:12] LABS: MANUAL MICROSCOPIC REQUIRED? NO; REVIEW REQ? NO
[2016-12-22] MEDS ORDERED: MAGNESIUM HYDROXIDE SUSP 30 ML UDC PO PRN (08:30)
[2016-12-22] MEDS ORDERED: GLUCOSE 10 TABS/TUBE PO PRN (08:30)
[2016-12-22] MEDS ORDERED: GLUCOSE 40% GEL 15 GM TUBE PO PRN (08:30)
[2016-12-22] MEDS ORDERED: POLYETHYLENE (MIRALAX) 17 GM PACK PO PRN (08:30)
[2016-12-22] MEDS ORDERED: DEXTROSE 50% 50 ML SYR IV PRN (08:30)
[2016-12-22] MEDS ORDERED: ZOLPIDEM TARTRATE 5 MG TAB PO PRN (08:30)
[2016-12-22] MEDS ORDERED: ONDANSETRON INJ 2 MG/ML 2 ML VIAL IV PRN (08:30)
[2016-12-22] MEDS ORDERED: ALUMINUM/MAGNESIUM/SIMETH (MAALOX MAX) 30 ML UDC PO PRN ×2 (08:30)
[2016-12-22] MEDS ORDERED: GLUCAGON FOR INJ 1 MG VIAL SQ PRN (08:30)
[2016-12-22] MEDS ORDERED: TRAMADOL HCL 50 MG TAB PO PRN (08:30)
[2016-12-22] MEDS ORDERED: ACETAMINOPHEN 325 MG TAB PO PRN (08:30)
[2016-12-22] MEDS ORDERED: PHARMACY GLYCEMIC MGMT CONSULT PRN (08:35)
[2016-12-22] MEDS ORDERED: METFORMIN HCL 500 MG TAB PO SCH (09:00)
[2016-12-22] MEDS ORDERED: CHOLECALCIFEROL 1000 INTER.UNIT TAB PO SCH ×2 (09:00→21:00)
[2016-12-22] MEDS: ISOSORBIDE MONONITRATE 60 MG TABCR PO SCH (09:00)
[2016-12-22] MEDS ORDERED: FUROSEMIDE 40 MG TAB PO SCH ×2 (09:00)
[2016-12-22] MEDS ORDERED: INSULIN GLARGINE SOLOSTAR 100 UNITS/ML 3 ML PEN SQ SCH (09:00)
--- NOTE | 2016-12-22 09:19 | EMERGENCY ROOM VISIT NOTE ---
History Report prepared by Linwood: Fabio Stovall Under the Supervision of: Dr. Wan Gibbons D.O. First contact with patient: 06:30 Chief Complaint: SHORTNESS OF BREATH Stated Complaint: HARD TIME BREATHING,HX OF HEART FAILURE Nursing Triage Summary: Pt presents for evaluation of sob and increased swelling in B/L LE. Increased edema x 1 week, primary increased lasix dose. This am awoke with increased sob. History of Present Illness The patient is a 56 year old female with a history of CHF who presents to the Emergency Room with complaints of persistent chest pain that started around 2 hours ago. The patient describes the chest pain as sharp. She says that the pain woke her up this morning, and it was associated with shortness of breath. The patient states that the pain is worsened with breathing, palpation, and movement. Currently, she states that the chest pain has been mostly relieved with the nitro. She notes that she has gained about 12 pounds in the past week, and her swelling is slightly worse than normal, but it has been worse in the past. The patient states that she was feeling fine yesterday without any fevers or chills. In the room, the patient says that she is starting to feel limp on the right side of her body, and feels weak all over. She adds that she is also currently confused. She had a negative stress test a year ago. The patient adds that she has had more of a cough today than usual. Per the patient's , the patient has seen a dance critic, and recently had her Lasix increased. The patient has no history of COPD, asthma, or blood clots. She has a family history of heart disease. Source of History: patient, spouse/significant other Onset: 2 hours ago Position: chest Quality: sharp Timing: other (persistent) Modifying Factors (Worsening): breathing, movement, other (palpation) Modifying Factors (Relieving): other (nitro) Associated Symptoms: + cough, + SOB, + weakness, No fevers, No chills Note: Associated symptoms: Limp on right side of body. Gained 12 pounds in past week. Swelling slightly worse than normal. Review of Systems See HPI for pertinent positives & negatives. A total of 10 systems reviewed and were otherwise negative. Past Medical & Surgical Medical Problems: (1) CHRONIC KIDNEY DISEASE, STAGE III (MODERATE) (2) CONGESTIVE HEART FAILURE NOS (3) DEPRESSIVE DISORDER NEC (4) DIAB JOSE A WO COMPL, TYPE II OR UNSPEC TYPE, NOT UNCNTRLD (5) DIABETIC RETINOPATHY NOS (6) DIVERTICULOSIS COLON (W/O MENT OF HEMORRHAGE) (7) Endometrial carcinoma (8) History of melanoma (9) HYPERLIPIDEMIA NEC/NOS (10) HYPERTENSION NOS (11) HYPOTHYROIDISM NOS (12) IRON DEFIC ANEMIA NOS (13) LUMBOSACRAL SPONDYLOSIS (14) MORBID OBESITY (15) NEUROPATHY IN DIABETES (16) ROSACEA (17) SOB (shortness of breath) Surgical Problems: (1) Abdominal hysterectomy (2) H/O esophagogastroduodenoscopy (3) Hx of cardiac cath (4) S/P knee surgery (5) Tonsillectomy Family History Cancer FATHER (Melenoma ) Diabetes mellitus Heart disease FATHER SISTER Hypertension Lung disease Social History Smoking Status: Never Smoker Alcohol Use: none Drug Use: none Marital Status: Housing Status: lives with family Occupation Status: employed Current/Historical Medications Scheduled Aspirin (Aspirin Chewable), 81 MG PO QPM Bupropion HCl (Bupropion HCl Sr), 200 MG PO DAILY Calcitriol (Calcitriol), PO UD Calcium Carbonate-Vitamin D (Calcium 600 + D), 1 TAB PO DAILY Carvedilol (Coreg), 12.5 MG PO BID Cholecalciferol (Vitamin D3), 1 TAB PO QAM Citalopram Hydrobromide (Citalopram Hydrobromide), 40 MG PO QAM Clobetasol Propionate (Temovate), 1 APPLN TOP DAILY Dapagliflozin Propanediol (Farxiga), 10 MG PO DAILY Ferrous Sulfate (Ferrous Sulfate), 325 MG PO DAILY Fish Oil (Clawson-3), 1 CAP PO DAILY Furosemide (Lasix), 40 MG PO UD Gabapentin (Neurontin), 600 MG PO TID Hydralazine HCl (Hydralazine HCl), 50 MG PO TID Insulin Glargine (Lantus), 100 UNITS SQ DAILY Insulin Lispro (Human) (Humalog), SQ ACHS Isosorbide Mononitrate Ext Rel (Imdur Ext Rel), 60 MG PO QAM Levothyroxine Sodium (Synthroid), 100 MCG PO QAM Metformin Hcl (Glucophage), 1,000 MG PO DAILY Multiple Vitamin (Multivitamin), 1 TAB PO HS Pantoprazole (Pantoprazole Sodium), 40 MG PO DAILY Simvastatin (Zocor), 20 MG PO QPM [Metrogel 1%], 1 APPLN DAILY Scheduled PRN Tramadol (Ultram), 50 MG PO Q4H PRN for Pain Allergies Coded Allergies: CHIDI Inhibitors (Verified Adverse Reaction, Mild, COUGH, 12/22/16) Physical Exam Vital Signs Date Time Temp Pulse Resp B/P (MAP) Pulse Ox O2 Delivery O2 Flow Rate FiO2 12/22/16 08:34 97 Room Air 12/22/16 08:29 56 12/22/16 07:22 55 16 153/73 97 Room Air 12/22/16 07:08 57 18 157/53 97 Room Air 12/22/16 06:21 58 12/22/16 06:18 100 Room Air 12/22/16 06:10 99 Room Air 12/22/16 06:10 36.3 58 18 180/75 99 Room Air Physical Exam GENERAL: very anxious, tearful, and tachypneic EYE EXAM: normal conjunctiva OROPHARYNX: no exudate, no erythema, lips, buccal mucosa, and tongue normal and mucous membranes are moist NECK: supple, no nuchal rigidity, no adenopathy, non-tender, no JVD LUNGS: Clear to auscultation. Normal chest wall mechanics HEART: no murmurs, S1 normal and S2 normal ABDOMEN: abdomen soft, non-tender, normo-active bowel sounds, no masses, no rebound or guarding. BACK: Back is symmetrical on inspection and there is no deformity, no midline tenderness, no CVA tenderness. SKIN: no rashes and no bruising UPPER EXTREMITIES: upper extremities are grossly normal. LOWER EXTREMITIES: pitting edema bilaterally NEURO EXAM: Normal sensorium, cranial nerves II-XII intact, normal speech, no weakness of arms, no weakness of legs. No drift. Finger to nose intact. Gross sensation intact. Medical Decision & Procedures ER Provider Diagnostic Interpretation: X-ray results as stated below per my review and the radiologist's interpretation : SINGLE VIEW CHEST CLINICAL HISTORY: Atypical chest pain. Dyspnea. FINDINGS: An AP, portable, upright chest radiograph is compared to study dated 06/09/2016. The examination is degraded by portable technique, large body habitus, and patient rotation. The cardiomediastinal silhouette is unremarkable. There is mild atherosclerotic calcification of the thoracic aorta. The lungs and pleural spaces are clear. No pneumothorax is seen. The skeletal structures are osteopenic. Degenerative change is noted in the thoracic spine. IMPRESSION: No active disease in the chest. Electronically signed by: Marco Antonio Martins M.D. 12/22/2016 7:52 AM Dictated Date/Time: 12/22/2016 7:52 AM Laboratory Results 12/22/16 06:50 Red Blood Count 4.25, Mean Corpuscular Volume 89.2, Mean Corpuscular Hemoglobin 27.5, Mean Corpuscular Hemoglobin Concent 30.9, Mean Platelet Volume 9.7, Neutrophils (%) (Auto) 56.7, Lymphocytes (%) (Auto) 34.3, Monocytes (%) (Auto) 6.9, Eosinophils (%) (Auto) 1.6, Basophils (%) (Auto) 0.3, Neutrophils # (Auto) 5.35, Lymphocytes # (Auto) 3.23, Monocytes # (Auto) 0.65, Eosinophils # (Auto) 0.15, Basophils # (Auto) 0.03 12/22/16 06:50 Test 12/22/16 00:00 12/22/16 06:13 12/22/16 06:50 12/22/16 07:35 Urine Color YELLOW Urine Appearance CLEAR (CLEAR) Urine pH 7.0 (4.5-7.5) Urine Specific Nenzel 1.009 (1.000-1.030) Urine Protein NEG (NEG) Urine Glucose (UA) NEG (NEG) Urine Ketones NEG (NEG) Urine Occult Blood NEG (NEG) Urine Nitrite NEG (NEG) Urine Bilirubin NEG (NEG) Urine Urobilinogen NEG (NEG) Urine Leukocyte Esterase NEG (NEG) Urine WBC (Auto) 1-5 /hpf (0-5) Urine RBC (Auto) 0-4 /hpf (0-4) Urine Hyaline Casts (Auto) 0 /lpf (0-5) Urine Epithelial Cells (Auto) 5-10 /lpf (0-5) Urine Bacteria (Auto) NEG (NEG) Bedside Glucose 96 mg/dl (70-90) White Blood Count 9.43 K/uL (4.8-10.8) Red Blood Count 4.25 M/uL (4.2-5.4) Hemoglobin 11.7 g/dL (12.0-16.0) Hematocrit 37.9 % (37-47) Mean Corpuscular Volume 89.2 fL (80-100) Mean Corpuscular Hemoglobin 27.5 pg (25-34) Mean Corpuscular Hemoglobin Concent 30.9 g/dl (32-36) Platelet Count 286 K/uL (130-400) Mean Platelet Volume 9.7 fL (7.4-10.4) Neutrophils (%) (Auto) 56.7 % Lymphocytes (%) (Auto) 34.3 % Monocytes (%) (Auto) 6.9 % Eosinophils (%) (Auto) 1.6 % Basophils (%) (Auto) 0.3 % Neutrophils # (Auto) 5.35 K/uL (1.4-6.5) Lymphocytes # (Auto) 3.23 K/uL (1.2-3.4) Monocytes # (Auto) 0.65 K/uL (0.11-0.59) Eosinophils # (Auto) 0.15 K/uL (0-0.5) Basophils # (Auto) 0.03 K/uL (0-0.2) RDW Standard Deviation 44.1 fL (36.4-46.3) RDW Coefficient of Variation 13.6 % (11.5-14.5) Immature Granulocyte % (Auto) 0.2 % Immature Granulocyte # (Auto) 0.02 K/uL (0.00-0.02) Prothrombin Time 10.7 SECONDS (9.0-12.0) Prothromb Time International Ratio 1.0 (0.9-1.1) Activated Partial Thromboplast Time 30.5 SECONDS (21.0-31.0) Partial Thromboplastin Ratio 1.2 D-Dimer 320 ug/L FEU (0-500) Anion Gap 10.0 mmol/L (3-11) Est Creatinine Clear Calc Drug Dose 57.1 ml/min Estimated GFR () 44.1 Estimated GFR (Non- 38.0 BUN/Creatinine Ratio 32.5 (10-20) Calcium Level 9.6 mg/dl (8.5-10.1) Total Bilirubin 0.4 mg/dl (0.2-1) Aspartate Amino Transf (AST/SGOT) 19 U/L (15-37) Alanine Aminotransferase (ALT/SGPT) 25 U/L (12-78) Alkaline Phosphatase 88 U/L (45-117) Troponin I < 0.015 ng/ml (0-0.045) Total Protein 7.8 gm/dl (6.4-8.2) Albumin 3.7 gm/dl (3.4-5.0) Globulin 4.1 gm/dl (2.5-4.0) Albumin/Globulin Ratio 0.9 (0.9-2) Lipase 139 U/L (73-393) Chemistry Specimen Hemolysis Venous Blood pH 7.48 (7.36-7.41) Venous Blood Partial Pressure CO2 38 mmHg (38.0-50.0) Venous Blood Partial Pressure O2 32 mmHg Venous Blood HCO3 28 mmol/L Venous Blood Oxygen Saturation 64.7 % Venous Blood Base Excess 4.1 mmol/L Laboratory results per my review. Medications Administered Medications (Trade) Dose Ordered Sig/Christina Route Start Time Stop Time Status Last Admin Dose Admin Aspirin (Aspirin Chew) 243 mg NOW STAT PO 12/22/16 06:23 12/22/16 06:25 DC 12/22/16 06:23 243 MG Morphine Sulfate (MoRPHine SULFATE INJ) 4 mg NOW STAT IV 12/22/16 06:23 12/22/16 06:25 DC 12/22/16 07:11 4 MG Ondansetron HCl (Zofran Inj) 4 mg NOW STAT IV 12/22/16 06:24 12/22/16 06:25 DC 12/22/16 07:11 4 MG Nitroglycerin (Nitrostat Tab) 0.4 mg STK-MED ONCE .ROUTE 12/22/16 06:33 12/22/16 06:34 DC 12/22/16 06:33 0.4 MG Lorazepam (Ativan Tab) 0.5 mg NOW STAT SL 12/22/16 07:13 12/22/16 07:14 DC 12/22/16 07:19 0.5 MG Miscellaneous Medication (Gi Cocktail) 24 ml ONE STAT PO 12/22/16 07:43 12/22/16 07:46 DC 12/22/16 07:43 24 ML Al Hydroxide/Mg Hydroxide (Maalox Susp) 30 ml STK-MED ONCE .ROUTE 12/22/16 07:50 12/22/16 07:51 DC 12/22/16 07:56 30 ML Lidocaine HCl (Viscous Lidocaine 2% Soln) 20 ml STK-MED ONCE .ROUTE 12/22/16 07:50 12/22/16 07:51 DC 12/22/16 07:57 10 ML ECG Indication: chest pain Rate (beats per minute): 60 Rhythm: sinus rhythm Findings: 1st degree AV block, Q waves (Inferior) Change: no significant change (compared to 09/12/16) ED Course ED COURSE: Vital signs were reviewed and showed hypertensive and bradycardic vitals. The patients medical record was reviewed The above diagnostic studies were performed and reviewed. ED treatments and interventions as stated above. 0623: Ordered Morphine Sulfate Inj 4 mg IV, Aspirin Chew 243 mg PO. 0624: Ordered Zofran Inj 4 mg IV. 0645: The patient was evaluated in room B3B. A complete history and physical examination was performed. 0700: Ordered Nitrostat Tab 0.4 mg SL PRN. 0713: Ordered Ativan Tab 0.5 mg SL. 0743: Ordered GI Cocktail 24 ml PO. 0800: Upon reevaluation, the patient is going to the bathroom.I discussed my findings with the patient and she understands and agrees with the treatment plan. Based on the patients age, coexisting illnesses, exam and lab findings the decision to treat as an inpatient was made. The patient remained stable while under my care. The patient will be evaluated for further management. 0813: I discussed the patient with Dr. Roscoe Gunn assistant golf coach - she will evaluate the patient for further treatment. Medical Decision Differential diagnoses includes but is not limited to acute coronary syndrome, myocardial infarction, pericarditis, pulmonary embolus, aortic dissection, pneumonia, pneumothorax, musculoskeletal, shingles, esophageal. Medication Reconciliation: I attest that I have personally reviewed the patient' s current medication list. Blood pressure screening: Patient was found to have an elevated blood pressure and was referred to their primary doctor for recheck and further treatment. Patient is a 56-year-old female with extensive family cardiac history along with hypertension, diabetes and CHF who presents the ER with substernal chest pain, shortness of breath along with a multitude of other complaints. On my exam she is completely neurologically intact. Troponins negative. D-dimer is negative. Chest x-ray appears to be unchanged from previous. EKG shows no obvious ischemia. Patient was given nitroglycerin with resolution of her pain. There did appear to be a reproducible component. She was given aspirin along with Ativan. She did have slight improvement. With her risk factors, I felt it was beneficial for observation. Consults Time Called: 809 Consulting Physician: Dr. Roscoe Gunn assistant golf coach Returned Call: 812 I discussed the patient with Dr. Roscoe Gunn assistant golf coach - she will evaluate the patient for further treatment. Impression Primary Impression: Precordial chest pain Additional Impression: Dyspnea Scribe Attestation The scribe's documentation has been prepared under my direction and personally reviewed by me in its entirety. I confirm that the note above accurately reflects all work, treatment, procedures, and medical decision making performed by me. Departure Information Dispostion Being Evaluated By Hospitalist Referrals Luis Fernando Rojas M.D. (PCP) Patient Instructions My [facility] Problem Qualifiers Additional Impression: Dyspnea Dyspnea type: unspecified Qualified Codes: R06.00 - Dyspnea, unspecified
--- NOTE | 2016-12-22 09:21 | DIAGNOSTIC IMAGING REPORT ---
ULTRASOUND BILATERAL LOWER EXTREMITY VENOUS CLINICAL HISTORY: Dyspnea. Atypical chest pain. Elevated d-dimer. Clinical concern for deep venous thrombosis. COMPARISON STUDY: Bilateral lower extremity venous ultrasound dated 02/23/2013. Left lower extremity venous ultrasound dated 11/13/2016 TECHNIQUE: Real-time, grayscale, and color Doppler sonography of the deep veins of the right and left lower extremity was performed from the inguinal crease to the calf. Compression and augmentation were utilized. FINDINGS: There is no sonographic evidence of deep venous thrombosis identified in the right or left lower extremity. The common femoral, superficial femoral, and popliteal veins are patent and normally compressible bilaterally. The greater saphenous vein and the profunda femoris vein at the junction with the common femoral vein are clear in both legs. The visualized calf veins are patent bilaterally. IMPRESSION: There is no sonographic evidence of deep venous thrombosis identified in the right or left lower extremity. Electronically signed by: Marco Antonio Martins M.D. 12/22/2016 9:20 AM Dictated Date/Time: 12/22/2016 9:19 AM
--- NOTE | 2016-12-22 10:25 | Pharmacy Progress Note ---
Glycemic Control Intl Consult Date of Service Dec 22, 2016. Scope Glycemic Pharmacist consulted by Dr Malhotra on 12/22/16 for glycemic control and to write orders per [facility] inpatient glycemic control protocol Objective Weight (Kilograms): 140.000 Accuchecks BSG (last 24hrs): Test 12/22/16 06:13 12/22/16 06:50 12/22/16 09:33 Bedside Glucose 96 mg/dl (70-90) 84 mg/dl (70-90) Random Glucose 89 mg/dl (70-99) Laboratory Data (last 24hrs) Test 12/22/16 06:50 Anion Gap 10.0 mmol/L BUN/Creatinine Ratio 32.5 Blood Urea Nitrogen 49 mg/dl Creatinine 1.50 mg/dl Potassium Level 4.1 mmol/L Sodium Level 142 mmol/L White Blood Count 9.43 K/uL Red Blood Count 4.25 M/uL Hemoglobin 11.7 g/dL Hematocrit 37.9 % Mean Corpuscular Volume 89.2 fL Mean Corpuscular Hemoglobin 27.5 pg Mean Corpuscular Hemoglobin Concent 30.9 g/dl Platelet Count 286 K/uL Mean Platelet Volume 9.7 fL Neutrophils (%) (Auto) 56.7 % Lymphocytes (%) (Auto) 34.3 % Monocytes (%) (Auto) 6.9 % Eosinophils (%) (Auto) 1.6 % Basophils (%) (Auto) 0.3 % Neutrophils # (Auto) 5.35 K/uL Lymphocytes # (Auto) 3.23 K/uL Monocytes # (Auto) 0.65 K/uL Eosinophils # (Auto) 0.15 K/uL Basophils # (Auto) 0.03 K/uL HbA1c Item Value Date Time Estimated Average Glucose 166 mg/dl 09/19/16 0548 Hemoglobin A1c 7.4 % H 09/19/16 0548 Recent Pertinent Medications Outpatient Anti-diabetic Regimen: * Lantus 50 units QAM + 40 units QPM (per patient) * Humalog SS; unsure of CF but carb ratio = 2 * Recently has changed to a high protein diet and averages ~10 units per day * When she eats more carbs, which she plans to do this admission, she typically requires ~30 units per day * Pt no longer takes metformin (updated med rec) * A1c pending Risk Factors for Insulin Resistance: * Diet Assessment & Plan ASSESSMENT: * 56 yo diabetic F admitted with SOB/recent wt gain; history of CHF * BSG in ED 96 mg/dL * Spoke with nurse/patient to confirm home dosing * Pt took Lantus 50 units CHEMIST WATER PURIFICATION * Last admission in September pt was glycemic consult for <24 hours and wanted her home regimen of Lantus versus what we had ordered * My plan will be to go with an approach that takes into consideration her wt/ stress in addition to outpatient total daily dose ~100 units * I would feel more comfortable with reducing Lantus due to expected dietary changes as well as extra short acting insulin when compared to home regimen which is predominantly basal insulin * Spoke with patient regarding this plan and she is agreeable and understands * ADA & AACE recommend a goal blood sugar range 140-180 mg/dl for the majority of critically ill & non-critically ill patients. However, more stringent targets may be selected in individual cases. Based on most recent A1c, pt can tolerate a goal range 110-140 mg/dL to better mirror home BSGs. PLAN FOR INPATIENT GLYCEMIC CONTROL: * Basal insulin with LANTUS 30 units SQ BID starting tonight since patient took home dose CHEMIST WATER PURIFICATION * Correctional Insulin with NOVOLOG per scale ACHS * Goal Range: Low 110 mg/dL - High 140 mg/dL * Correction Factor: 15 mg/dL/unit * Nutritional / Prandial insulin per carb ratio of 1 unit per 6 grams CHO consumed * A1c ordered by MD with AM labs - will assess tomorrow * Please note that the plan above was derived based on current level of insulin resistance and hospital stress. These recommendations are appropriate for inpatient admission only. Plan of care upon discharge will need to be reassessed to avoid potential outpatient hypo/hyperglycemia. Thank you.
[2016-12-22] MEDS: CITALOPRAM 40 MG TAB PO SCH (10:33)
[2016-12-22] MEDS: CARVEDILOL 12.5 MG TAB PO SCH ×3 (10:34→21:10)
[2016-12-22] MEDS: FERROUS SULFATE 325 MG TAB PO SCH (10:34)
[2016-12-22] MEDS: BuPROPion SR 100 MG TABCR PO SCH (10:35)
[2016-12-22] MEDS: LEVOTHYROXINE 100 MCG TAB PO SCH (10:35)
[2016-12-22] MEDS: PANTOprazole SOD 40 MG TAB PO SCH (10:35)
[2016-12-22] MEDS: OMEGA-3 (PURIFIED FISH OIL) 1 GM CAP PO SCH (10:35)
[2016-12-22] MEDS: GABAPENTIN 600 MG TAB PO SCH ×3 (10:35→21:11)
[2016-12-22] MEDS: INSULIN ASPART 100 UNITS/ML 3 ML PEN SC SCH ×4 (10:38→21:00)
[2016-12-22] MEDS ORDERED: IV FLUIDS COMPLETED PRN (11:30)
[2016-12-22] MEDS ORDERED: HEPARIN SOD 5000 UNIT/0.5 ML CARP SQ SCH (14:00)
[2016-12-22] MEDS ORDERED: NURSING VERBAL MED ORDER ONE ×2 (14:15→20:45)
[2016-12-22 15:08] LABS: CKMB/CK RATIO 1.6 (0-3.0)
[2016-12-22] MEDS: FUROSEMIDE 40 MG TAB PO SCH (16:46)
--- NOTE | 2016-12-22 18:27 | History and Physical ---
History & Physical Date & Time of Service: Dec 22, 2016 at 18:27 Chief Complaint: Sob,Substernal Chest Pain Primary Care Physician: Luis Fernando Rojas M.D. History of Present Illness Source: patient This is a 56 yo F with morbid obesity , Type 2 DM , HTN , GERD, non ischemic cardiomyopathy with chronic diastolic dysfunction , presented with ED with complain of substernal pain , chest heaviness -which woke her up approx 4 AM today pt mentions that few weeks back she noticed , worsening of lower ext edema, wt gain of approx 20 lb called her cardiology office in [facility] , was ordered extra dose of Lasix lower ext edema improved markedly , did not check her wt since then denies of any Orthopnea, OLSON or chest pain prior to today pt mentions of foul smelling urine , increased frequency ( takes Lasix ) , no dysuria , no fever , occasional chills UA was negative in ED after arrival to ED , Cxray shows no evidence of pulmonary congestion , troponin was negative , EKG sinus bradycardia , ist degree AV block , T wave flattening on lateral lead pt reports to two episodes in ED when she felt very SOB , unable to take deep breath with pain and discomfort in mid chest , symptom was resolved on his own pt was also given GI cocktail in ED for possible acid reflux causing her symptom pt remains symptom free for at rest after arrival to floor while walking in the hallway , felt the similar symptom of central chest tightness during my interview ,pt was chest pain free , comfortable , worried about her symptom lower ext Doppler ordered -negative for DVT Past Medical/Surgical History Medical Problems: (1) CHRONIC KIDNEY DISEASE, STAGE III (MODERATE) Status: Chronic (2) CONGESTIVE HEART FAILURE NOS Status: Chronic (3) DEPRESSIVE DISORDER NEC Status: Chronic (4) DIAB JOSE A WO COMPL, TYPE II OR UNSPEC TYPE, NOT UNCNTRLD Status: Chronic (5) DIABETIC RETINOPATHY NOS Status: Chronic (6) DIVERTICULOSIS COLON (W/O MENT OF HEMORRHAGE) Status: Chronic (7) Endometrial carcinoma Permanent Comment: S/P hysterectomy Status: Resolved (8) HYPERLIPIDEMIA NEC/NOS Status: Chronic (9) HYPERTENSION NOS Status: Chronic (10) HYPOTHYROIDISM NOS Status: Chronic (11) IRON DEFIC ANEMIA NOS Status: Chronic (12) LUMBOSACRAL SPONDYLOSIS Status: Chronic (13) MORBID OBESITY Status: Chronic (14) NEUROPATHY IN DIABETES Status: Chronic (15) ROSACEA Status: Chronic Surgical Problems: (1) Abdominal hysterectomy Status: Resolved (2) H/O esophagogastroduodenoscopy Status: Chronic (3) Hx of cardiac cath Permanent Comment: 2012, negative for CAD Status: Chronic (4) S/P knee surgery Status: Chronic (5) Tonsillectomy Status: Resolved Family History Cancer FATHER (Melenoma ) Diabetes mellitus Heart disease FATHER SISTER Hypertension Lung disease Social History Smoking Status: Never Smoker Smokeless Tobacco Use: No Drug Use: none Marital Status: Housing status: lives with family Occupational Status: employed Immunizations History of Influenza Vaccine: No Influenza Vaccine Date: Aug 09, 2009 History of Tetanus Vaccine?: utd History of Pneumococcal: APPROX 3 YEARS AGO History of Hepatitis B Vaccine: No Multi-Drug Resistant Organisms History of MDRO: No Allergies Coded Allergies: CHIDI Inhibitors (Verified Adverse Reaction, Mild, COUGH, 12/22/16) Home Medications Scheduled Aspirin (Aspirin Chewable), 81 MG PO QPM Bupropion HCl (Bupropion HCl Sr), 200 MG PO DAILY Calcitriol (Calcitriol), PO UD Calcium Carbonate-Vitamin D (Calcium 600 + D), 1 TAB PO DAILY Carvedilol (Coreg), 12.5 MG PO BID Cholecalciferol (Vitamin D3), 1,000 UNITS PO QPM Citalopram Hydrobromide (Citalopram Hydrobromide), 40 MG PO QAM Clobetasol Propionate (Temovate), 1 APPLN TOP DAILY Dapagliflozin Propanediol (Farxiga), 10 MG PO DAILY Ferrous Sulfate (Ferrous Sulfate), 325 MG PO DAILY Fish Oil ([place]-3), 1 CAP PO DAILY Furosemide (Lasix), 40 MG PO UD Gabapentin (Neurontin), 600 MG PO TID Hydralazine HCl (Hydralazine HCl), 50 MG PO TID Insulin Glargine (Lantus), 0 SQ BID Insulin Lispro (Human) (Humalog), SQ ACHS Isosorbide Mononitrate Ext Rel (Imdur Ext Rel), 60 MG PO QAM Levothyroxine Sodium (Synthroid), 100 MCG PO QAM Multiple Vitamin (Multivitamin), 1 TAB PO HS Pantoprazole (Pantoprazole Sodium), 40 MG PO DAILY Simvastatin (Zocor), 20 MG PO QPM [Metrogel 1%], 1 APPLN DAILY Scheduled PRN Tramadol (Ultram), 50 MG PO Q4H PRN for Pain Review of Systems Constitutional: + sweats, + weakness, + fatigue Respiratory: + shortness of breath, + dyspnea on exertion, + dyspnea at rest Cardiovascular: + chest pain, + edema Abdomen: No pain, No nausea, No vomiting, No diarrhea, No constipation, No GI bleeding, No problem reported Genitourinary - Female: + problem reported (urine foul smelling ) Neurologic: + weakness Psychiatric: + anxiety Endocrine: + fatigue Physical Exam Vital Signs Date Time Temp Pulse Resp B/P (MAP) Pulse Ox O2 Delivery O2 Flow Rate FiO2 12/22/16 15:08 36.5 55 20 136/61 (86) 96 Room Air 12/22/16 12:30 Room Air 12/22/16 11:54 36.7 59 20 144/78 (100) 97 Room Air 12/22/16 09:30 36.4 59 18 145/77 (99) 95 Room Air 12/22/16 08:34 97 Room Air 12/22/16 08:29 56 12/22/16 07:22 55 16 153/73 97 Room Air 12/22/16 07:08 57 18 157/53 97 Room Air 12/22/16 06:21 58 12/22/16 06:18 100 Room Air 12/22/16 06:10 99 Room Air 12/22/16 06:10 36.3 58 18 180/75 99 Room Air General Appearance: no apparent distress, + obese Eyes: sclerae normal Respiratory/Chest: chest non-tender, no respiratory distress, + decreased breath sounds Cardiovascular: regular rate, rhythm, normal peripheral pulses Abdomen/GI: normal bowel sounds, non tender, soft Extremities/Musculoskelatal: no calf tenderness, normal capillary refill, + pedal edema (+1) Neurologic/Psych: no motor/sensory deficits, alert, normal mood/affect, oriented x 3 Skin: no rash Lymphatic: no adenopathy Diagnostics Laboratory Results Results Past 24 Hours Test 12/22/16 00:00 12/22/16 06:13 12/22/16 06:50 12/22/16 07:35 Range/Units Urine Color YELLOW Urine Appearance CLEAR CLEAR Urine pH 7.0 4.5-7.5 Urine Specific [place] 1.009 1.000-1.030 Urine Protein NEG NEG Urine Glucose (UA) NEG NEG Urine Ketones NEG NEG Urine Occult Blood NEG NEG Urine Nitrite NEG NEG Urine Bilirubin NEG NEG Urine Urobilinogen NEG NEG Urine Leukocyte Esterase NEG NEG Urine WBC (Auto) 1-5 0-5 /hpf Urine RBC (Auto) 0-4 0-4 /hpf Urine Hyaline Casts (Auto) 0 0-5 /lpf Urine Epithelial Cells (Auto) 5-10 0-5 /lpf Urine Bacteria (Auto) NEG NEG Bedside Glucose 96 70-90 mg/dl White Blood Count 9.43 4.8-10.8 K/uL Red Blood Count 4.25 4.2-5.4 M/uL Hemoglobin 11.7 12.0-16.0 g/dL Hematocrit 37.9 37-47 % Mean Corpuscular Volume 89.2 80-100 fL Mean Corpuscular Hemoglobin 27.5 25-34 pg Mean Corpuscular Hemoglobin Concent 30.9 32-36 g/dl Platelet Count 286 130-400 K/uL Mean Platelet Volume 9.7 7.4-10.4 fL Neutrophils (%) (Auto) 56.7 % Lymphocytes (%) (Auto) 34.3 % Monocytes (%) (Auto) 6.9 % Eosinophils (%) (Auto) 1.6 % Basophils (%) (Auto) 0.3 % Neutrophils # (Auto) 5.35 1.4-6.5 K/uL Lymphocytes # (Auto) 3.23 1.2-3.4 K/uL Monocytes # (Auto) 0.65 0.11-0.59 K/uL Eosinophils # (Auto) 0.15 0-0.5 K/uL Basophils # (Auto) 0.03 0-0.2 K/uL RDW Standard Deviation 44.1 36.4-46.3 fL RDW Coefficient of Variation 13.6 11.5-14.5 % Immature Granulocyte % (Auto) 0.2 % Immature Granulocyte # (Auto) 0.02 0.00-0.02 K/uL Prothrombin Time 10.7 9.0-12.0 SECONDS Prothromb Time International Ratio 1.0 0.9-1.1 Activated Partial Thromboplast Time 30.5 21.0-31.0 SECONDS Partial Thromboplastin Ratio 1.2 D-Dimer 320 0-500 ug/L FEU Sodium Level 142 136-145 mmol/L Potassium Level 4.1 3.5-5.1 mmol/L Chloride Level 105 98-107 mmol/L Carbon Dioxide Level 27 21-32 mmol/L Anion Gap 10.0 3-11 mmol/L Blood Urea Nitrogen 49 7-18 mg/dl Creatinine 1.50 0.60-1.20 mg/dl Est Creatinine Clear Calc Drug Dose 57.1 ml/min Estimated GFR () 44.1 Estimated GFR (Non- 38.0 BUN/Creatinine Ratio 32.5 10-20 Random Glucose 89 70-99 mg/dl Calcium Level 9.6 8.5-10.1 mg/dl Total Bilirubin 0.4 0.2-1 mg/dl Aspartate Amino Transf (AST/SGOT) 19 15-37 U/L Alanine Aminotransferase (ALT/SGPT) 25 12-78 U/L Alkaline Phosphatase 88 45-117 U/L Troponin I < 0.015 0-0.045 ng/ml Total Protein 7.8 6.4-8.2 gm/dl Albumin 3.7 3.4-5.0 gm/dl Globulin 4.1 2.5-4.0 gm/dl Albumin/Globulin Ratio 0.9 0.9-2 Lipase 139 73-393 U/L Chemistry Specimen Hemolysis Venous Blood pH 7.48 7.36-7.41 Venous Blood Partial Pressure CO2 38 38.0-50.0 mmHg Venous Blood Partial Pressure O2 32 mmHg Venous Blood HCO3 28 mmol/L Venous Blood Oxygen Saturation 64.7 % Venous Blood Base Excess 4.1 mmol/L Test 12/22/16 09:33 12/22/16 11:47 12/22/16 14:30 12/22/16 16:35 Range/Units Bedside Glucose 84 137 160 70-90 mg/dl Total Creatine Kinase 82 26-192 U/L Creatine Kinase MB 1.3 0.5-3.6 ng/ml Creatine Kinase MB Ratio 1.6 0-3.0 Troponin I < 0.015 0-0.045 ng/ml Diagnostic Radiology CHEST XRAY SINGLE VIEW CHEST CLINICAL HISTORY: Atypical chest pain. Dyspnea. FINDINGS: An AP, portable, upright chest radiograph is compared to study dated 06/09/2016. The examination is degraded by portable technique, large body habitus, and patient rotation. The cardiomediastinal silhouette is unremarkable. There is mild atherosclerotic calcification of the thoracic aorta. The lungs and pleural spaces are clear. No pneumothorax is seen. The skeletal structures are osteopenic. Degenerative change is noted in the thoracic spine. IMPRESSION: No active disease in the chest. ULTRASOUND BILATERAL LOWER EXTREMITY : IMPRESSION: There is no sonographic evidence of deep venous thrombosis identified in the right or left lower extremity. Impression Assessment and Plan CHEST PAIN /POSSIBLE ANGINA : symptom concerning of unstable angina pt has multiple risk factors -obesity , Type 2 DM . Hyperlipidemia , Family hx of CAD ( father had CAD /CHF /stroke ) monitor in tele serial cardiac markers ordered initial X2 negative no acute changes noted in EKG pt continued to complain of exertional chest pain ordered for Nitro paste IV heparin ordered resting ECHO in AM pt was scheduled for cardiac stress test tomorrow as out pt Follows with Cardiology Dr Stevenson Cardiology eval requested , pt will be NPO past midnight for possible cardiac test pt is unable to do treadmill stress test reviewing prior record , pt had Non ischemic Nc stress test in 2014 Has cardiac cath in 2012 which showed no evidence of CAD ( done for abnormal perfusion noted in Apical myocardium suggestive of ischemia ) will defer Cardiology decision for type to stress test needs to ordered CHRONIC DIASTOLIC HEART FAILURE : appears to be compensated Cxray shows no pulmonary congestion ECHO on 2014 ; technically limited study with normal LV function , normal valvular function pt will be continued on Lasix 40 mg BID monitor vol status CKD STAGE 3 : Cr approx baseline monitor TYPE 2 DM : cont basal Lantus insulin SSI added hold Metformin -acute illness , may need contrast study for cardiac angiogram Hb A1c added in AM study pharmacy consulted for glycemic management DIABETIC PERIPHERAL NEUROPATHY : on Neurontin HYPERLIPIDEMIA : cont statin Fasting lipid panel in AM HTN : cont out pt medications of beta griselda -Coreg , Hydralazine ,Imdur and Lasix FULL CODE DVT PROPHYLAXIS : moderate to high risk sub q Heparin DISPOSITION ; expected to be discharged home when medically stable Medicine follow up with Dr Luis Fernando Rojas Cardiology follow up with Dr Stevenson Level of Care Telemetry Advanced Directives Existing Living Will: No Existing Power of Blast Furnace Helper: No VTE Prophylaxis VTE Risk Assessment Done? Y/N: Yes Risk Level: High Given or contraindicated: Unfractionated heparin SQ Additional Copies To Luis Fernando Rojas M.D. Bradbury, James J., D.O.
[2016-12-22] MEDS: NITROGLYCERIN 2% OINTMENT 30GM TUBE EXT SCH ×2 (19:13→23:38)
[2016-12-22] MEDS ORDERED: HEPARIN 25,000 UNIT/500ML D5W 500 ML IV PRN (19:15)
[2016-12-22] MEDS ORDERED: SIMVASTATIN 20 MG TAB PO SCH (21:00)
[2016-12-22] MEDS ORDERED: ASPIRIN 81 MG CHEW PO SCH (21:00)
[2016-12-22] MEDS: INSULIN GLARGINE SOLOSTAR 100 UNITS/ML 3 ML PEN SC SCH (22:20)
[2016-12-22 23:06] LABS: CKMB/CK RATIO 1.9 (0-3.0)
[2016-12-23] VITALS (8 sets, daily range): BP systolic 120–157; BP diastolic 61–85; PULSE 56–57; TEMP 36.4–37; O2SAT 94–97
[2016-12-23 02:02] LABS: PARTIAL THROMBOPLASTIN RATIO 1.9
[2016-12-23] MEDS: NITROGLYCERIN 2% OINTMENT 30GM TUBE EXT SCH (05:12)
[2016-12-23] MEDS: LEVOTHYROXINE 100 MCG TAB PO SCH (05:12)
[2016-12-23] MEDS: INSULIN ASPART 100 UNITS/ML 3 ML PEN SC SCH ×3 (07:00→16:52)
[2016-12-23 07:21] LABS: HEMATOCRIT 36.1 % (37-47); MEAN CELL VOLUME 90.5 fL (80-100); MEAN CORPUSCULAR HEMOGLOBIN 27.6 pg (25-34); MEAN CORPUSCULAR HGB CONC 30.5 g/dl (32-36); MEAN PLATELET VOLUME 9.7 fL (7.4-10.4); PLATELET COUNT 229 K/uL (130-400); RED BLOOD COUNT 3.99 M/uL (4.2-5.4); WHITE BLOOD COUNT 10.66 K/uL (4.8-10.8)
[2016-12-23 07:54] LABS: BUN/CREATININE RATIO 28.4 (10-20); CALCIUM 8.9 mg/dl (8.5-10.1); CREATININE 1.5 mg/dl (0.60-1.20); MAGNESIUM 2.3 mg/dl (1.8-2.4)
[2016-12-23 07:58] LABS: CHOLESTEROL/HDL RATIO 2.8
[2016-12-23] MEDS: CITALOPRAM 40 MG TAB PO SCH (08:03)
[2016-12-23] MEDS: BuPROPion SR 100 MG TABCR PO SCH (08:04)
[2016-12-23] MEDS: GABAPENTIN 600 MG TAB PO SCH ×2 (08:04→15:27)
[2016-12-23] MEDS: FERROUS SULFATE 325 MG TAB PO SCH (08:04)
[2016-12-23] MEDS: OMEGA-3 (PURIFIED FISH OIL) 1 GM CAP PO SCH (08:05)
[2016-12-23] MEDS: PANTOprazole SOD 40 MG TAB PO SCH (08:06)
[2016-12-23] MEDS: FUROSEMIDE 40 MG TAB PO SCH ×2 (08:06→15:27)
[2016-12-23 08:42] LABS: ESTIMATED AVERAGE GLUCOSE 174 mg/dl; HA1C FLAG Normal (Normal)
[2016-12-23] MEDS ORDERED: ASPIRIN 81 MG ECTAB PO SCH (09:00)
[2016-12-23] MEDS ORDERED: METOPROLOL TARTRATE 1 MG/ML VIAL ONE (10:32)
[2016-12-23] MEDS ORDERED: DOBUTamine HCL 12.5 MG/ML 20 ML VIAL ONE (10:32)
[2016-12-23] MEDS ORDERED: ATROPINE SULFATE 0.1 MG/ML 5ML SYR ONE (10:32)
[2016-12-23] MEDS: CARVEDILOL 12.5 MG TAB PO SCH (11:39)
[2016-12-23] MEDS: ISOSORBIDE MONONITRATE 60 MG TABCR PO SCH (11:39)
[2016-12-23] MEDS: INSULIN GLARGINE SOLOSTAR 100 UNITS/ML 3 ML PEN SC SCH (11:40)
[2016-12-23] MEDS ORDERED: PERFLUTREN LIPID MICROSPHERE (DEFINITY) IV ONE (11:54)
--- NOTE | 2016-12-23 12:46 | DOBUTAMINE ECHO ---
*NOTICE TO RECEIVING REPUBLICAN AGENCY This information is strictly Confidential and protected under [place] law. [place] law prohibits you from making any further disclosure of this information unless further disclosure is expressly permitted by the written consent of the person to whom it pertains or is authorized by law. A general authorization for the release of medical or other information is not sufficient for this purpose. Hospital accepts no responsibility if the information is made available to any other person, INCLUDING THE PATIENT. Interpretation Summary * Name: TAMARA EAGLE Study Date: 12/23/2016 09:19 AM BP: 174/49 mmHg * Patient Location: C.2T\S\S239\S\1 HR: 56 * : 1960 (M/d/yyyy) Gender: Female Height: 64 in * Age: 56 yrs Ethnicity: CA Weight: 291 lb * Ordering Physician: Ulises Stevenson * Referring Physician: Self, Referred * Performed By: Audra Allan RDCS * * Reason For Study: Chest pain * BSA: 2.3 m2 * The study was technically adequate. * -- Conclusions -- * STRESS STUDY: * Normal pharmacologic stress echocardiogram. * No echocardiographic or ECG evidence of myocardial ischemia having achieved heart rate adequate for diagnostic purposes. * Chest pain that was atypical in character for angina was noted prior to and during the test that did not augment significantly with the test. * The heart rate response was normal. * A hypertensive blood pressure response was observed. * RESTING STUDY: * There is mild concentric left ventricular hypertrophy. * The LV Ejection Fraction = 55-60%. * There is severe mitral annular calcification. * There is no mitral valve stenosis. * Diastolic dysfunction, Grade II (pseudonormalization pattern). Procedure Details * DOBUTAMINE ECHO, CPT#63385 * ECHO DOPPLER, CPT #[id number] * ECHO COLOR FLOW, CPT #[id number] * A contrast injection of Definity was performed to improve assessment of LV function. * Contrast was injected into an intravenous site in the left arm. * One vial of Definity ultrasound contrast was diluted in normal saline to a total volume of 10 ml. A total of '7' ml of solution was administered during imaging. * Lot # [id number] of Definity utilized for procedure. * Expiration date JAN 05. * The attending nurse who injected the contrast agent was Sammi Schwartz RN. * ECHOEX, CPT #[id number] Left Ventricle * The left ventricle is normal in size. * There is mild concentric left ventricular hypertrophy. * Ejection Fraction = 55-60%. * Left ventricular systolic function is normal. * Resting wall motion: Normal. Stress wall motion: Appropriate increase in Left ventricular systolic function and decrease in cavity size. No stress induced segmental wall motion abnormalities. Right Ventricle * The right ventricle is normal in size and function. Atria * The left atrial size is normal. * Right atrial size is normal. * No ASD detected; PFO is not assessed. Mitral Valve * There is severe mitral annular calcification. * There is no mitral valve stenosis. * Significant mitral regurgitation is absent. Tricuspid Valve * The tricuspid valve is normal. * There is no tricuspid stenosis. * Significant tricuspid regurgitation is absent. * Doppler findings do not suggest pulmonary hypertension. Aortic Valve * The aortic valve is trileaflet. * No hemodynamically significant valvular aortic stenosis. * No aortic regurgitation is present. Pulmonic Valve * The pulmonic valve is not well visualized. Great Vessels * The aortic root is normal size. Pericardium * There is no pericardial effusion. Stress Parameters * Normal baseline electrocardiogram. * The stress ECG response was normal * Occasional isolated PVCs were noted during pharmacologic stress. * The stress portion of this study was personally supervised by the undersigned interpreting physician. * Rest heart rate was '56' BPM. * Rest blood pressure was '174/59' * Maximum heart rate achieved was 136 bpm. * Maximum heart rate was 83 % of maximum age-predicted heart rate. * Maximum blood pressure was '210/90' * Maximum Dobutamine infusion rate was '30' mcg/kg/min. * A total of 0.5 mg of intravenous Atropine was used to supplement Dobutamine for heart rate response. * Dobutamine infusion was terminated due to achieving target heart rate * A total of 10 mg of IV Metoprolol was administered to reverse Dobutamine-induced tachycardia. Left Ventricular Diastolic Function * Diastolic dysfunction, Grade II (pseudonormalization pattern). MMode 2D Measurements and Calculations IVSd 1.3 cm LVIDd 4.6 cm LVIDs 3.2 cm LVPWd 1.1 cm IVS/LVPW 1.2 FS 31.3 % EDV(Teich) 99.7 ml ESV(Teich) 40.8 ml EF(Teich) 59.1 % EDV(cubed) 100.4 ml ESV(cubed) 32.6 ml EF(cubed) 67.6 % LV mass(C)d 209.0 grams LV mass(C)dI 91.1 grams/m\S\2 SV(Teich) 58.9 ml SI(Teich) 25.7 ml/m\S\2 SV(cubed) 67.8 ml SI(cubed) 29.6 ml/m\S\2 Ao root diam 2.8 cm Ao root area 5.9 cm\S\2 ACS 1.9 cm LA dimension 3.6 cm asc Aorta Diam 2.3 cm LA/Ao 1.3 LVAd ap4 40.4 cm\S\2 LVLd ap4 8.7 cm EDV(MOD-sp4) 151.1 ml EDV(sp4-el) 159.5 ml LVAs ap4 24.0 cm\S\2 LVLs ap4 7.1 cm ESV(MOD-sp4) 66.1 ml ESV(sp4-el) 69.0 ml EF(MOD-sp4) 56.3 % EF(sp4-el) 56.8 % LVAd ap2 41.5 cm\S\2 LVLd ap2 8.5 cm EDV(MOD-sp2) 165.2 ml EDV(sp2-el) 172.2 ml LVAs ap2 24.9 cm\S\2 LVLs ap2 7.4 cm ESV(MOD-sp2) 70.5 ml ESV(sp2-el) 71.1 ml EF(MOD-sp2) 57.3 % EF(sp2-el) 58.7 % LVLd %diff -2.04 % EDV(MOD-bp) 161.1 ml LVLs %diff 4.4 % ESV(MOD-bp) 67.5 ml EF(MOD-bp) 58.1 % SV(MOD-sp4) 85.0 ml SI(MOD-sp4) 37.1 ml/m\S\2 SV(MOD-sp2) 94.7 ml SI(MOD-sp2) 41.3 ml/m\S\2 SV(MOD-bp) 93.6 ml SI(MOD-bp) 40.8 ml/m\S\2 SV(sp4-el) 90.5 ml SI(sp4-el) 39.5 ml/m\S\2 SV(sp2-el) 101.1 ml SI(sp2-el) 44.1 ml/m\S\2 Doppler Measurements and Calculations MV E max veronica 140.2 cm/sec MV A max veronica 124.9 cm/sec MV E/A 1.1 MV dec time 0.35 sec Ao V2 max 170.4 cm/sec Ao max PG 11.6 mmHg Ao max PG (full) 7.1 mmHg LV V1 max PG 4.5 mmHg LV V1 max 106.1 cm/sec PA V2 max 111.3 cm/sec PA max PG 5.0 mmHg PA acc slope 494.5 cm/sec\S\2 PA acc time 0.13 sec TR max veronica 251.9 cm/sec PA pr(Accel) 22.0 mmHg
--- NOTE | 2016-12-23 12:52 | Cardiology Consultation ---
Cardiology Consultation Date of Consultation: Dec 23, 2016 History of Present Illness Candi Irvin is a 56 year old female seen in cardiology consultation per the request of Dr Malhotra for the evaluation of chest discomfort. The patient is known to the undersigned having most recently been seen as an outpatient in October, at which time she reported feeling well. She was considering weight loss surgery at that time and had returned for preoperative assessment with Herbie Alex PA-C last month and a dobutamine stress echocardiogram had been scheduled to be performed as an outpatient . In the interim, she awoke yesterday with left sided chest discomfort that radiated to her neck. Patient's EKGs have been negative x 2 and has had negative troponin levels x 3. BP has been stable. Patient was seen and examined prior to / during/ and post dobutamine stress echocardiogram today. She described mild left upper chest pain radiating toward her neck that did not change significantly with dobutamine / atropine administration. The discomfort is reproduced with a deep breath and with palpation. In 2012 she was admitted for volume overload and atypical chest pain. She was treated for diastolic heart failure. She then had an outpatient nuclear stress test which suggested ischemia prompting cardiac cath at [facility] on 04/13/13 revealing normal coronary arteries. She was admitted with chest pain again in 2014 and had a normal nuclear stress at [facility]. History Past Medical History: 1. Morbid obesity 2. Type 2 diabetes. 3. Hypertension with underlying hypertensive heart disease. 4. Stage III chronic kidney disease. 5. Obstructive sleep apnea with CPAP use at home 6. Hypothyroidism. 7. Hx of Diastolic HF exacerbation in November 2012 Past Surgical History: Hysterectomy 2. Tonsillectomy 3. Cardiac catheterization 2012 as outlined above Social History: No tobacco use, denies use. Family History: History of heart disease in her father and her sister. Details unknown. Review Of Systems See above for pertinent positives & negatives. A total of 10 systems reviewed and were otherwise negative. Allergies Coded Allergies: CHIDI Inhibitors (Verified Adverse Reaction, Mild, COUGH, 12/22/16) Medications Reported Home Medications Medications Dose Route/Sig Max Daily Dose Days Date Category Dose Instructions Temovate (Clobetasol Propionate) 0.05 % Cre 1 Appln TOP DAILY 90 12/22/16 Reported [Metrogel 1%] 1 Appln DAILY 12/22/16 Reported Calcium 600 + D (Calcium Carbonate-Vitamin D) 1 Tab Tab 1 Tab PO DAILY 12/22/16 Reported [place]-3 (Fish Oil) 1 Ea Cap 1 Cap PO DAILY 12/22/16 Reported Ferrous Sulfate 325 Mg Tab 325 Mg PO DAILY 12/22/16 Reported Ultram (Tramadol HCl) 50 Mg Tab 50 Mg PO Q4H PRN 12/22/16 Reported Imdur Ext Rel (Isosorbide Mononitrate) 60 Mg Ertab 60 Mg PO QAM 12/22/16 Reported Zocor (Simvastatin) 20 Mg Tab 20 Mg PO QPM 12/22/16 Reported Farxiga (Dapagliflozin Propanediol) 10 Mg Tab 10 Mg PO DAILY 12/22/16 Reported Humalog (Insulin Lispro (Human)) 100 Unit/Ml Inj SQ ACHS 12/22/16 Reported PER SLIDING SCALE Bupropion HCl Sr (Bupropion HCl) 100 Mg Tabcr 200 Mg PO DAILY 12/22/16 Reported Pantoprazole Sodium (Pantoprazole) 40 Mg Tab 40 Mg PO DAILY 12/22/16 Reported Calcitriol 0.25 Mcg Cap PO UD 12/22/16 Reported Lasix (Furosemide) 40 Mg Tab 40 Mg PO UD 12/22/16 Reported Vitamin D3 (Cholecalciferol) 1,000 Unit Tab 1,000 Units PO QPM 30 06/08/16 Reported Hydralazine HCl 100 Mg Tab 50 Mg PO TID 06/08/16 Reported Lantus (Insulin Glargine) 100 Unit/Ml Inj 0 SQ BID 05/03/14 Reported 50 units in the AM and 40 units in the PM Coreg (Carvedilol) 12.5 Mg Tab 12.5 Mg PO BID 02/23/13 Reported Citalopram Hydrobromide 40 Mg Tab 40 Mg PO QAM 02/23/13 Reported Neurontin (Gabapentin) 600 Mg Tab 600 Mg PO TID 07/15/12 Reported Aspirin Chewable (Aspirin) 81 Mg Chew 81 Mg PO QPM 03/05/12 Reported Multivitamin (Multiple Vitamin) 1 Tab Tab 1 Tab PO HS 03/05/12 Reported Synthroid (Levothyroxine Sodium) 100 Mcg Tab 100 Mcg PO QAM 03/05/12 Reported Physical Exam Vital Signs (Last 8hrs): Last 8 Hrs Date Time Temp Pulse Resp B/P (MAP) Pulse Ox O2 Delivery O2 Flow Rate FiO2 12/23/16 08:00 95 Room Air 12/23/16 07:20 36.5 56 18 157/62 (93) 95 Room Air 12/23/16 04:00 97 CPAP General Appearance: Alert and Oriented x3. NAD. Head: Normocephalic Atraumatic. Eyes: PERRLA, EOMI, conjunctiva and sclera clear Neck: Supple. No carotid bruits noted. No JVD. No HJD. Respiratory: Breath sounds clear to auscultation bilaterally. No w/r/r. Cardiovascular: Reg rate and rhythm. S1 and S2 noted. No murmurs, rubs, gallops. PMI non displace. Abdomen: Normal bowel sounds, soft nontender. no abdominal bruits. Extremities: No edema, no clubbing or cyanosis. distal pulses 2/4 bilaterally. Neuro: No focal deficits. Psychiatric: Normal affect. Data Last Resulted 12/23/16 06:55 Last Resulted 12/23/16 06:55 Past 24 Hours Test 12/22/16 14:30 12/22/16 22:15 Range/Units Creatine Kinase MB 1.3 1.3 0.5-3.6 ng/ml Creatine Kinase MB Ratio 1.6 1.9 0-3.0 Total Creatine Kinase 82 69 26-192 U/L Troponin I < 0.015 < 0.015 0-0.045 ng/ml EK12/22/2016 reviewed independently by the undersigned-sinus rhythm at 60 bpm with first-degree AV block, age-indeterminate anterior infarction cannot be excluded. Repeat EKG 12/23/16 was unchanged Assessment & Plan Impression: 56-year-old female 1. Chest discomfort, atypical for angina, reproducible on palpation and with deep inspiration, negative EKG, negative cardiac enzymes, nonischemic dobutamine stress echo 2. Normal coronary angiography 2012 3. Chronic diastolic heart failure, volume status is somewhat difficult to assess given body habitus, but she appears to be stable despite her reported weight gain without acute volume overload. Recommendations: Recommend Tylenol for chest wall pain. Not a candidate for nonsteroidal anti- inflammatory therapy given her chronic kidney disease. Continue outpatient medications. No further cardiac testing is indicated.
--- NOTE | 2016-12-23 13:29 | Discharge Instructions ---
Discharge Instructions Date of Service Dec 23, 2016. Admission Reason for Admission: Sob,Substernal Chest Pain Discharge Discharge Diagnosis / Problem: CHEST PAIN , NON CARDIAC , NEGATIVE CARDIAC STRESS TEST Discharge Goals Goal(s): Decrease discomfort, Improve disease control, Diagnostic testing Activity Recommendations Activity Limitations: resume your previous activity . Instructions / Follow-Up Instructions / Follow-Up HOSPITAL FOLLOW UP WITH DR HEBER RANGEL ON Friday12/31/16 @ 11 : 05 am CARDIOLOGY FOLLOW UP ON 12/30/2016 @ 8:45 AM WITH Megan Alex PA-C Cardiology, [facility] YOUR INSULIN REGIMEN HAS CHANGED/REDUCED : TAKE LANTUS ( LONG ACTING ) 40 U IN AM /40 U AT PM ( BEFORE IT WAS 50 UNITS IN AM /40 UNITS AT PM ) PROTONIX DOSE INCREASED TO 40 MG TWICE DAILY , TAKE WITH EMPTY STOMACH FOR 4 WEEKS THEN CAN CONTINUE TO TAKE ONCE DAILY PLEASE FOLLOW UP WITH DR RANGEL FOR CONTINUED MONITORING OF BLOOD SUGAR AND DIABETES MANAGEMENT Current Hospital Diet Patient's current hospital diet: AHA Diet (Heart Healthy), Diabetes Type 2 Diet Discharge Diet Recommended Diet: AHA Diet (Heart Healthy), Low Sodium Diet (2gm Na) Pending Studies Studies pending at discharge: no Laboratory Results Hemoglobin A1c Test 12/23/16 06:55 Range/Units Estimated Average Glucose 174 mg/dl Hemoglobin A1c 7.7 H 4.5-5.6 % Lipid Panel Test 12/23/16 06:55 Range/Units Triglycerides Level 197 H 0-150 mg/dl Cholesterol Level 115 0-200 mg/dl HDL Cholesterol 41 mg/dl Cholesterol/HDL Ratio 2.8 LDL Cholesterol, Calculated 35 mg/dl Medical Emergencies . Who to Call and When: Medical Emergencies: If at any time you feel your situation is an emergency, please call 911 immediately. . Non-Emergent Contact Non-Emergency issues call your: Primary Care Provider . . "Provider Documentation" section prepared by Casandra Malhotra. . VTE Core Measure Inpt VTE Proph given/why not?: Unfractionated heparin SQ
[2016-12-23] MEDS ORDERED: INSDGI SQ (13:41)
[2016-12-23] MEDS ORDERED: PANT1TAB48 PO (17:23)
--- NOTE | 2016-12-23 21:40 | Discharge Summary ---
Discharge Summary Date of Service Dec 23, 2016. Discharge Summary Admission Date: Dec 22, 2016 at 08:18 Discharge Date: Dec 23, 2016 Discharge Disposition: Home Principal Diagnosis: CHEST PAIN , NON CARDIAC , NEGATIVE CARDIAC STRESS TEST Procedures: DOBUTAMINE STRESS TEST: STRESS STUDY: * Normal pharmacologic stress echocardiogram. * No echocardiographic or ECG evidence of myocardial ischemia having achieved heart rate adequate for diagnostic purposes. * Chest pain that was atypical in character for angina was noted prior to and during the test that did not augment significantly with the test. * The heart rate resonse was normal. * A hypertensive blood pressure resonse was observed. Consultations: [facility] Medication Reconciliation New Medications: Pantoprazole (Protonix) 40 Mg Tab 1 TAB PO BID for 30 Days, #60 TAB 3 Refills Changed Medications: Insulin Glargine (Lantus) 100 Unit/Ml Inj 40 UNITS SQ BID for 30 Days, #5 PEN 3 Refills (Changed from: 0 ; Refills: ; 50 units in the AM and 40 units in the PM) 40 units in the AM and 40 units in the PM Continued Medications: Aspirin (Aspirin Chewable) 81 Mg Chew 81 MG PO QPM, TAB Bupropion HCl (Bupropion HCl Sr) 100 Mg Tabcr 200 MG PO DAILY Calcitriol (Calcitriol) 0.25 Mcg Cap PO UD, #39 Calcium Carbonate-Vitamin D (Calcium 600 + D) 1 Tab Tab 1 TAB PO DAILY Carvedilol (Coreg) 12.5 Mg Tab 12.5 MG PO BID, TAB Cholecalciferol (Vitamin D3) 1,000 Unit Tab 1000 UNITS PO QPM for 30 Days, TAB 5 Refills Citalopram Hydrobromide (Citalopram Hydrobromide) 40 Mg Tab 40 MG PO QAM Clobetasol Propionate (Temovate) 0.05 % Cre 1 APPLN TOP DAILY for 90 Days, #60 GM 3 Refills Dapagliflozin Propanediol (Farxiga) 10 Mg Tab 10 MG PO DAILY Ferrous Sulfate (Ferrous Sulfate) 325 Mg Tab 325 MG PO DAILY Fish Oil ([place]-3) 1 Ea Cap 1 CAP PO DAILY, CAP Furosemide (Lasix) 40 Mg Tab 40 MG PO UD, #180 Gabapentin (Neurontin) 600 Mg Tab 600 MG PO TID, TAB Hydralazine HCl (Hydralazine HCl) 100 Mg Tab 50 MG PO TID Insulin Lispro (Human) (Humalog) 100 Unit/Ml Inj SQ ACHS PER SLIDING SCALE Isosorbide Mononitrate Ext Rel (Imdur Ext Rel) 60 Mg Ertab 60 MG PO QAM, TAB Levothyroxine Sodium (Synthroid) 100 Mcg Tab 100 MCG PO QAM, TAB Multiple Vitamin (Multivitamin) 1 Tab Tab 1 TAB PO HS, TAB Simvastatin (Zocor) 20 Mg Tab 20 MG PO QPM, TAB Tramadol (Ultram) 50 Mg Tab 50 MG PO Q4H PRN for Pain, TAB [Metrogel 1%] () 1 APPLN DAILY Discontinued Medications: Pantoprazole (Pantoprazole Sodium) 40 Mg Tab 40 MG PO DAILY, #90 Referrals At Discharge Follow up Referrals: [facility] Referral - 12/30/16 with Megan Alex PA-C Physician Referral - 12/31/16 with Heber Rojas M.D. Admission Information HPI (per Admitting provider): This is a 56 yo F with morbid obesity , Type 2 DM , HTN , GERD, non ischemic cardiomyopathy with chronic diastolic dysfunction , presented with ED with complain of substernal pain , chest heaviness -which woke her up approx 4 AM today pt mentions that few weeks back she noticed , worsening of lower ext edema, wt gain of approx 20 lb called her cardiology office in [facility] , was ordered extra dose of Lasix lower ext edema improved markedly , did not check her wt since then denies of any Orthopnea, OLSNO or chest pain prior to today pt mentions of foul smelling urine , increased frequency ( takes Lasix ) , no dysuria , no fever , occasional chills UA was negative in ED after arrival to ED , Cxray shows no evidence of pulmonary congestion , troponin was negative , EKG sinus bradycardia , ist degree AV block , T wave flattening on lateral lead pt reports to two episodes in ED when she felt very SOB , unable to take deep breath with pain and discomfort in mid chest , symptom was resolved on his own pt was also given GI cocktail in ED for possible acid reflux causing her symptom pt remains symptom free for at rest after arrival to floor while walking in the hallway , felt the similar symptom of central chest tightness during my interview ,pt was chest pain free , comfortable , worried about her symptom lower ext Doppler ordered -negative for DVT Physical Exam (per Admitting): General Appearance: no apparent distress, + obese Eyes: sclerae normal Respiratory/Chest: chest non-tender, no respiratory distress, + decreased breath sounds Cardiovascular: regular rate, rhythm, normal peripheral pulses Abdomen/GI: normal bowel sounds, non tender, soft Extremities/Musculoskelatal: no calf tenderness, normal capillary refill, + pedal edema (+1) Neurologic/Psych: no motor/sensory deficits, alert, normal mood/affect, oriented x 3 Skin: no rash Lymphatic: no adenopathy Hospital Course no complain of chest pain this AM Dobutamine stress test ,negative for stress induced ischemia stable to be discharged home today P/E: GEN : obese , no sign of distress HEENT : sclera non icteric, HT : regular S1/S2 LUNGS; CTA ABDOMEN: soft, non tender EXT : no lower ext edema NEURO: AAO x3, no focal deficit A/P : CHEST PAIN /NO EVIDENCE OF ISCHEMIA possible due to GI related /acid reflux serial cardiac markers initial X 3 negative no acute changes noted in EKG -Dobutamine cardiac stress test -negative for stress induced ischemia Appreciate input form Cardiology Dr Stevenson CHRONIC DIASTOLIC HEART FAILURE : compensated Cxray shows no pulmonary congestion ECHO on 2015 ; technically limited study with normal LV function , normal valvular function pt will be continued on Lasix 40 mg BID c CKD STAGE 3 : Cr approx baseline monitor TYPE 2 DM : cont basal Lantus insulin SSI added Hb A1c ~7 -well controlled apprecaite pharmacy consult for glycemic management pt was having low BSG level Lantus dose reduced to 40 U BID ( was on 5O U in am /40 U PM ) to prevent hypoglycemic episodes pt will continue to follow up with her family physician for further diabetic management DIABETIC PERIPHERAL NEUROPATHY : on Neurontin HYPERLIPIDEMIA : cont statin HTN : cont out pt medications of beta griselda -Coreg , Hydralazine ,Imdur and Lasix FULL CODE DVT PROPHYLAXIS : moderate to high risk sub q Heparin DISPOSITION ; Discharged home today Medicine follow up with Dr Heber Rojas Cardiology follow up with Dr Stevenson Discharge Instructions Discharge Instructions Date of Service Dec 23, 2016. Admission Reason for Admission: Sob,Substernal Chest Pain Discharge Discharge Diagnosis / Problem: CHEST PAIN , NON CARDIAC , NEGATIVE CARDIAC STRESS TEST Discharge Goals Goal(s): Decrease discomfort, Improve disease control, Diagnostic testing Activity Recommendations Activity Limitations: resume your previous activity . Instructions / Follow-Up Instructions / Follow-Up HOSPITAL FOLLOW UP WITH DR HEBER ROJAS ON Friday12/31/16 @ 11 : 05 am CARDIOLOGY FOLLOW UP ON 12/30/2016 @ 8:45 AM WITH Megan Alex PA-C Cardiology, [facility] YOUR INSULIN REGIMEN HAS CHANGED/REDUCED : TAKE LANTUS ( LONG ACTING ) 40 U IN AM /40 U AT PM ( BEFORE IT WAS 50 UNITS IN AM /40 UNITS AT PM ) PROTONIX DOSE INCREASED TO 40 MG TWICE DAILY , TAKE WITH EMPTY STOMACH FOR 4 WEEKS THEN CAN CONTINUE TO TAKE ONCE DAILY PLEASE FOLLOW UP WITH DR ROJAS FOR CONTINUED MONITORING OF BLOOD SUGAR AND DIABETES MANAGEMENT Current Hospital Diet Patient's current hospital diet: AHA Diet (Heart Healthy), Diabetes Type 2 Diet Discharge Diet Recommended Diet: AHA Diet (Heart Healthy), Low Sodium Diet (2gm Na) Pending Studies Studies pending at discharge: no Laboratory Results Hemoglobin A1c Test 12/23/16 06:55 Range/Units Estimated Average Glucose 174 mg/dl Hemoglobin A1c 7.7 H 4.5-5.6 % Lipid Panel Test 12/23/16 06:55 Range/Units Triglycerides Level 197 H 0-150 mg/dl Cholesterol Level 115 0-200 mg/dl HDL Cholesterol 41 mg/dl Cholesterol/HDL Ratio 2.8 LDL Cholesterol, Calculated 35 mg/dl Medical Emergencies . Who to Call and When: Medical Emergencies: If at any time you feel your situation is an emergency, please call 911 immediately. . Non-Emergent Contact Non-Emergency issues call your: Primary Care Provider . . "Provider Documentation" section prepared by Casandra Malhotra. . VTE Core Measure Inpt VTE Proph given/why not?: Unfractionated heparin SQ Additional Copies To Heber Rojas M.D. Roan, Megan Qiu PA-C
== END 2016-12-23 18:19 | disposition home or self-care (01) ==
LOC: C.EDB 06:00 → C.MED 08:18 → ENRESERV 08:48 → C.2T 20:08
PROVIDERS: ADMIT Hospitalist; ATTEND Hospitalist
DX: R07.89 Other chest pain (principal); R06.02 Shortness of breath; E66.01 Morbid (severe) obesity due to excess calories; I42.9 Cardiomyopathy, unspecified; I13.0 Hypertensive heart and chronic kidney disease with heart failure and stage 1 through stage 4 chronic kidney disease, or unspecified chronic kidney disease; I50.32 Chronic diastolic (congestive) heart failure; N18.3 Chronic kidney disease, stage 3 (moderate); E11.40 Type 2 diabetes mellitus with diabetic neuropathy, unspecified; G47.33 Obstructive sleep apnea (adult) (pediatric); K21.9 Gastro-esophageal reflux disease without esophagitis; E03.9 Hypothyroidism, unspecified; D50.9 Iron deficiency anemia, unspecified; E78.5 Hyperlipidemia, unspecified; E11.319 Type 2 diabetes mellitus with unspecified diabetic 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 edema; K57.31 Diverticulosis of large intestine without perforation or abscess with bleeding; Z79.82 Long term (current) use of aspirin; Z79.4 Long term (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 insulin; Z90.710 Acquired absence of both cervix and uterus; Z85.42 Personal history of malignant neoplasm of other parts of uterus; Z82.49 Family history of ischemic heart disease and other diseases of the circulatory system

== ENCOUNTER → 2017-03-11 | Outpatient (CLI) | payer BC, OTHER ==
[~2017-03-11] MED LIST changes: +CALC-20 PO; +CALC1CAP36 PO; +CLOB-77 TOP; +DAPA1TAB2 PO; -DOXY20TA3 PO; +FRS/40 PO; +FURO-85 PO; -FURO40TA3 PO; -HYDR-5688 PO; +INSDGI SC; +INSU100I SQ; +ISOS60TA25 PO; -LOSA50TA6 PO; -LPT/40 PO; +METF-384 PO; +METR0.7527; -METR1GEL16 TOP; +METROGEL 1%; -NVLGI/PEN SC; +PANT1TAB48 PO; -PANT40TA PO; +SIMV20TA2 PO; +TRAM-10 PO; +WLLSR100 PO
--- NOTE | 2017-03-11 08:14 | DIAGNOSTIC IMAGING REPORT ---
GI SERIES W/AIR ROUTINE CLINICAL HISTORY: 56-year-old female preop for gastric surgery in March, right-sided abdominal pain, constipation. COMPARISON STUDY: None. TECHNIQUE: A standard air contrast upper GI series was performed. Spot images of the esophagus and stomach were obtained in multiple obliquities both upright and prone. FINDINGS: The patient swallowed barium without difficulty. The esophagus is structurally normal without evidence of intrinsic or extrinsic mass. The esophageal mucosal pattern is normal. No gastroesophageal reflux was elicited by having the patient perform the Valsalva maneuver. The gastroesophageal junction distends normally. The stomach is normal in configuration and demonstrates normal distensibility. No mass or ulceration is identified. There was no evidence of gastritis. The duodenal bulb and sweep are unremarkable. Fluoroscopy time: 2.3 minutes. Fluoroscopic images: 21. IMPRESSION: Normal upper GI series. No anatomic abnormality. Electronically signed by: Harmeet Navarrete M.D. 03/11/2017 8:13 AM Dictated Date/Time: 03/11/2017 8:12 AM
== END | disposition home or self-care (01) ==
LOC: C.RAD 07:22
PROVIDERS: ATTEND Surgery
DX: E11.42 Type 2 diabetes mellitus with diabetic polyneuropathy (principal)

== ENCOUNTER 2017-04-20 11:00 | Emergency (ER) | payer BC, OTHER ==
[~2017-04-20] VITALS: Ht 162.6 cm; Wt 130.0 kg
[~2017-04-20 11:00] MED LIST changes: -BUPR75TA20 PO; -FURO-85 PO; -INSDGI SC; -METF-384 PO; -METR0.7527
[2017-04-20 11:07] VITALS: TEMP 36.6; Ht 162.6 cm; Wt 130.0 kg
[2017-04-20] MEDS ORDERED: ONDANSETRON INJ 2 MG/ML 2 ML VIAL IV STA (11:26)
[2017-04-20] MEDS ORDERED: SODIUM CHLORIDE 0.9% 1000ML 1,000 ML IV STA (11:26)
[2017-04-20] MEDS ORDERED: HYDROmorphone INJ 1 MG/ML SYR IV STA ×2 (11:26→16:46)
--- NOTE | 2017-04-20 11:30 | EMERGENCY ROOM VISIT NOTE ---
History Report prepared by [place]: Rosario Guillaume Under the Supervision of: Dr. Angelo Hutson M.D. First contact with patient: 11:19 Chief Complaint: DIARRHEA Stated Complaint: BELLY PAIN, DIARRHEA-BARIATRIC SURG. WED. 04/16 History of Present Illness The patient is a 56 year old female who presents to the Emergency Room with complaints of persistent diarrhea for the past 2 days. She reports she underwent bariatric surgery by Dr. Polanco on April 16. She was discharged home 2 days ago. Since she's been home, she has experienced diarrhea and abdominal pain. She believes she is having up to 15 episodes of diarrhea a day. She rates her abdominal pain as a 6/10 in severity. She denies any vomiting. She does not take daily blood thinners. Source of History: patient Onset: 2 days [employer] Position: abdomen Timing: other (persistent) Associated Symptoms: + abdominal pain, No vomiting Review of Systems See HPI for pertinent positives & negatives. A total of 10 systems reviewed and were otherwise negative. Past Medical & Surgical Medical Problems: (1) CHRONIC KIDNEY DISEASE, STAGE III (MODERATE) (2) CONGESTIVE HEART FAILURE NOS (3) DEPRESSIVE DISORDER NEC (4) DIAB JOSE A WO COMPL, TYPE II OR UNSPEC TYPE, NOT UNCNTRLD (5) DIABETIC RETINOPATHY NOS (6) DIVERTICULOSIS COLON (W/O MENT OF HEMORRHAGE) (7) Endometrial carcinoma (8) History of melanoma (9) HYPERLIPIDEMIA NEC/NOS (10) HYPERTENSION NOS (11) HYPOTHYROIDISM NOS (12) IRON DEFIC ANEMIA NOS (13) LUMBOSACRAL SPONDYLOSIS (14) MORBID OBESITY (15) NEUROPATHY IN DIABETES (16) ROSACEA (17) SOB (shortness of breath) Surgical Problems: (1) Abdominal hysterectomy (2) H/O esophagogastroduodenoscopy (3) Hx of cardiac cath (4) S/P knee surgery (5) Tonsillectomy Family History Cancer FATHER (Melenoma ) Diabetes mellitus Heart disease FATHER SISTER Hypertension Lung disease Social History Smoking Status: Never Smoker Alcohol Use: none Drug Use: none Marital Status: Housing Status: lives with family Occupation Status: employed Current/Historical Medications Scheduled Aspirin (Aspirin Chewable), 81 MG PO QPM Bupropion (Wellbutrin), 75 MG PO DAILY Calcium Carbonate-Vitamin D (Calcium 600 + D), 1 TAB PO DAILY Carvedilol (Coreg), 12.5 MG PO BID Cholecalciferol (Vitamin D3), 1,000 UNITS PO QPM Citalopram Hydrobromide (Citalopram Hydrobromide), 40 MG PO QAM Clobetasol Propionate (Temovate), 1 APPLN TOP DAILY Dapagliflozin Propanediol (Farxiga), 5 MG PO DAILY Ferrous Sulfate (Ferrous Sulfate), 325 MG PO DAILY Fish Oil ([place]-3), 1 CAP PO DAILY Furosemide (Lasix), 20 MG PO DAILY Gabapentin (Neurontin), 600 MG PO TID Hydralazine HCl (Hydralazine HCl), 50 MG PO TID Insulin Glargine (Lantus), 25 UNITS SC QAM Insulin Glargine (Lantus), 20 UNITS SC QPM Insulin Lispro (Human) (Humalog), SQ ACHS Isosorbide Mononitrate Ext Rel (Imdur Ext Rel), 60 MG PO QAM Levothyroxine Sodium (Synthroid), 100 MCG PO QAM Metformin Hcl (Glucophage), 1,000 MG PO DAILY Metronidazole (Topical) (Metrogel), 1 APPLN DAILY Multiple Vitamin (Multivitamin), 1 TAB PO HS Simvastatin (Zocor), 20 MG PO QPM Scheduled PRN Tramadol (Ultram), 50 MG PO Q4H PRN for Pain Allergies Coded Allergies: CHIDI Inhibitors (Verified Adverse Reaction, Mild, COUGH, 12/22/16) Physical Exam Vital Signs Date Time Temp Pulse Resp B/P (MAP) Pulse Ox O2 Delivery O2 Flow Rate FiO2 04/20/17 18:50 69 20 135/63 93 Room Air 04/20/17 16:53 62 20 135/63 95 04/20/17 15:48 60 18 119/45 95 Room Air 04/20/17 13:45 62 20 135/52 96 Room Air 04/20/17 12:30 62 04/20/17 12:13 73 20 122/49 96 Room Air 04/20/17 11:07 36.6 67 17 120/52 96 Room Air Physical Exam GENERAL: Patient is a healthy-appearing well-nourished 56 year old female HEAD: Normocephalic atraumatic EYES: Ocular movements intact pupils equal and react to light OROPHARYNX mucous membranes are moist no exudates present no erythema or edema present NECK: Supple no nuchal rigidity CHEST: Good equal expansion LUNGS: Clear and equal to auscultation CARDIAC: Normal S1 and S2 ABDOMEN: Soft, tender in the RLQ, no guarding BACK: No CVA tenderness EXTREMITIES: No pain upon palpation normal muscle strength in all groups no clubbing cyanosis or edema NEURO: Patient is following commands is answering questions appropriately. Alert and oriented x3 Cranial Nerves 2-12 grossly intact Medical Decision & Procedures ER Provider Diagnostic Interpretation: ABD/PELVIS IV AND ORAL CONT HISTORY: 56 years-old Female Pt c/o RLQ abd pain, diarrhea acute right lower quadrant abdominal pain with diarrhea. COMPARISON: Upper GI series 03/11/2017, CT abdomen and pelvis 04/23/2016 TECHNIQUE: Multiple axial CT images of the abdomen and pelvis were obtained following the intravenous administration of 93 mL Optiray 320. Oral contrast was also used. A dose lowering technique was used consistent with the principals of UNA. FINDINGS: Minimal groundglass opacities of the lung bases are seen suggesting atelectasis. Subsegmental linear atelectasis is seen within the lower lobes. No pneumoperitoneum identified. The liver, spleen and adrenal glands are within normal limits. There is moderate to severe pancreatic atrophy. Prior cholecystectomy. Mild nonspecific bilateral perinephric edema. Kidneys, ureters and urinary bladder are unremarkable. Prior hysterectomy. Small left fat filled inguinal hernia. There is mild atherosclerotic plaquing of the abdominal aorta. No bulky retroperitoneal adenopathy. There've been interval postsurgical changes of prior Chente-en-Y gastric bypass. The excluded stomach is mildly distended with air-fluid level. No oral contrast is seen within the excluded limb. There is progression of oral contrast through the jejunal jejunal anastomosis and into small bowel of the central abdomen. Dilated loops of small bowel measure up to 3.0 cm. Several loops of small bowel are noted adjacent to the anterior abdominal wall suspicious for underlying adhesions. More distally partially collapsed loop of small bowel are seen without high-grade transition point definitively seen. There are a few mildly prominent mesenteric lymph nodes which measure up to 1.0 cm in short axis, nonspecific. Colonic diverticulosis without acute diverticulitis. There is air within the colon. No evidence of acute appendicitis. There is soft tissue edema of the anterior abdominal wall, nonspecific. The bones appear intact. There is 3 mm anterolisthesis L4 on L5, likely secondary to associated severe facet arthropathy. IMPRESSION: 1. Prior Chente-en-Y gastric bypass with several loops of mildly dilated small bowel within the mid and lower central abdomen measuring up to 3.0 cm with decreased transit of contrast into distal collapsed small bowel loops suggesting low-grade small bowel obstruction without definite transition point identified, likely secondary to underlying adhesions. This finding could be further evaluated with a small bowel follow-through to assess level and grade of obstruction. 2. Air-fluid level with minimally distended excluded stomach, nonspecific. No oral contrast is seen within the excluded limb to suggest anastomotic dehiscence. 3. Mild nonspecific adenopathy of the central mesentery. 4. No pneumoperitoneum. 5. Prior cholecystectomy and hysterectomy. The above report was generated using voice recognition software. It may contain grammatical, syntax or spelling errors. Electronically signed by: Jose Ghosh M.D. 04/20/2017 2:35 PM Dictated Date/Time: 04/20/2017 2:24 PM Laboratory Results 04/20/17 12:00 Red Blood Count 3.72, Mean Corpuscular Volume 87.9, Mean Corpuscular Hemoglobin 28.0, Mean Corpuscular Hemoglobin Concent 31.8, Mean Platelet Volume 10.2, Neutrophils (%) (Auto) 58.1, Lymphocytes (%) (Auto) 25.3, Monocytes (%) (Auto) 13.5, Eosinophils (%) (Auto) 2.5, Basophils (%) (Auto) 0.3, Neutrophils # (Auto ) 3.49, Lymphocytes # (Auto) 1.52, Monocytes # (Auto) 0.81, Eosinophils # (Auto ) 0.15, Basophils # (Auto) 0.02 04/20/17 12:00 Test 04/20/17 12:00 04/20/17 13:11 White Blood Count 6.01 K/uL (4.8-10.8) Red Blood Count 3.72 M/uL (4.2-5.4) Hemoglobin 10.4 g/dL (12.0-16.0) Hematocrit 32.7 % (37-47) Mean Corpuscular Volume 87.9 fL (80-100) Mean Corpuscular Hemoglobin 28.0 pg (25-34) Mean Corpuscular Hemoglobin Concent 31.8 g/dl (32-36) Platelet Count 228 K/uL (130-400) Mean Platelet Volume 10.2 fL (7.4-10.4) Neutrophils (%) (Auto) 58.1 % Lymphocytes (%) (Auto) 25.3 % Monocytes (%) (Auto) 13.5 % Eosinophils (%) (Auto) 2.5 % Basophils (%) (Auto) 0.3 % Neutrophils # (Auto) 3.49 K/uL (1.4-6.5) Lymphocytes # (Auto) 1.52 K/uL (1.2-3.4) Monocytes # (Auto) 0.81 K/uL (0.11-0.59) Eosinophils # (Auto) 0.15 K/uL (0-0.5) Basophils # (Auto) 0.02 K/uL (0-0.2) RDW Standard Deviation 43.4 fL (36.4-46.3) RDW Coefficient of Variation 13.4 % (11.5-14.5) Immature Granulocyte % (Auto) 0.3 % Immature Granulocyte # (Auto) 0.02 K/uL (0.00-0.02) Anion Gap 11.0 mmol/L (3-11) Est Creatinine Clear Calc Drug Dose 58.7 ml/min Estimated GFR () 47.9 Estimated GFR (Non- 41.3 BUN/Creatinine Ratio 34.2 (10-20) Calcium Level 9.3 mg/dl (8.5-10.1) Total Bilirubin 0.5 mg/dl (0.2-1) Direct Bilirubin 0.1 mg/dl (0-0.2) Aspartate Amino Transf (AST/SGOT) 24 U/L (15-37) Alanine Aminotransferase (ALT/SGPT) 43 U/L (12-78) Alkaline Phosphatase 89 U/L (45-117) Total Protein 7.1 gm/dl (6.4-8.2) Albumin 3.1 gm/dl (3.4-5.0) Lipase 66 U/L (73-393) Urine Color YELLOW Urine Appearance CLEAR (CLEAR) Urine pH 5.0 (4.5-7.5) Urine Specific [place] 1.017 (1.000-1.030) Urine Protein NEG (NEG) Urine Glucose (UA) NEG (NEG) Urine Ketones NEG (NEG) Urine Occult Blood NEG (NEG) Urine Nitrite NEG (NEG) Urine Bilirubin NEG (NEG) Urine Urobilinogen NEG (NEG) Urine Leukocyte Esterase NEG (NEG) Labs reviewed by ED physician. Medications Administered Medications (Trade) Dose Ordered Sig/Christina Route Start Time Stop Time Status Last Admin Dose Admin Sodium Chloride 1,000 ml @ 999 mls/hr Q1H1M STAT IV 04/20/17 11:26 04/20/17 12:26 DC 04/20/17 12:06 999 MLS/HR Hydromorphone HCl (Dilaudid Inj) 1 mg NOW STAT IV 04/20/17 11:26 04/20/17 11:28 DC 04/20/17 12:06 1 MG Ondansetron HCl (Zofran Inj) 4 mg NOW STAT IV 04/20/17 11:26 04/20/17 11:28 DC 04/20/17 12:06 4 MG Hydromorphone HCl (Dilaudid Inj) 1 mg NOW STAT IV 04/20/17 16:46 04/20/17 16:47 DC 04/20/17 16:46 1 MG ED Course 1122: Past medical records reviewed. The patient was evaluated in room A3. A complete history and physical examination was performed. 1126: Zofran 4 mg IV, Dilaudid 1 mg IV, NSS 1000 ml @ 999 mls/hr IV. 1325: I reevaluated the patient. She is resting comfortably. Medical Decision Prior records/ancillary studies reviewed. Triage Nursing notes reviewed The patient's history was concerning for nausea, vomiting, diarrhea, and abdominal pain. Differential diagnosis: Etiologies such as gastroenteritis, food borne illness, infections, appendicitis , diverticulitis, inflammatory bowel disease, obstruction, GI bleed, biliary pathology, as well as others were entertained. This is a 56-year-old female who presents emergency department complaining of right lower quadrant abdominal pain as well as severe diarrhea. The patient recently had bariatric surgery at [facility]. I will note that the patient has not had a bowel movement since 5 AM this morning. She was observed for a period of 4 hours in the emergency department unfortunately during this period she was unable to produce a stool sample. An IV was established, the patient given normal saline bolus, Dilaudid. The patient has a normal CBC normal renal profile normal liver profile normal lipase. She is slightly dehydrated. The Pt 's CT was concerning for a small bowel obstruction. I did discuss this with the surgeon on-call [facility] who asked that the CAT scan be repeated in 2 hours or transfer the patient on a [place]. I gave the patient both options and she would like to have a repeat CAT scan done. The patient was signed out to Dr. Cates at change of shift. Medication Reconcilliation Current Medication List: was personally reviewed by me Blood Pressure Screening Patient's blood pressure: Normal blood pressure Blood pressure disposition: Did not require urgent referral Impression Primary Impression: Diarrhea Scribe Attestation The scribe's documentation has been prepared under my direction and personally reviewed by me in its entirety. I confirm that the note above accurately reflects all work, treatment, procedures, and medical decision making performed by me. Departure Information Dispostion Still a Patient Referrals Luis Fernando Rojas M.D. (PCP) Patient Instructions [facility] Problem Qualifiers Primary Impression: Diarrhea Diarrhea type: unspecified type Qualified Codes: R19.7 - Diarrhea, unspecified
[2017-04-20] MEDS ORDERED: BUPR75TA20 PO (12:32)
[2017-04-20] MEDS ORDERED: METF-384 PO (12:32)
[2017-04-20] MEDS ORDERED: FURO-85 PO (12:32)
[2017-04-20] MEDS ORDERED: METR0.7527 (12:32)
[2017-04-20] MEDS ORDERED: INSDGI SC ×2 (12:32)
[2017-04-20 12:34] LABS: BASO % 0.3 %; BASO ABS # 0.02 K/uL (0-0.2); COMPLETE YES; EOS % 2.5 %; HEMATOCRIT 32.7 % (37-47); IG% 0.3 %; LYMPH % 25.3 %; LYMPH ABS # 1.52 K/uL (1.2-3.4); MEAN CELL VOLUME 87.9 fL (80-100); MEAN CORPUSCULAR HGB CONC 31.8 g/dl (32-36); MEAN PLATELET VOLUME 10.2 fL (7.4-10.4); MONO % 13.5 %; NEUT % 58.1 %; PLATELET COUNT 228 K/uL (130-400); RED BLOOD COUNT 3.72 M/uL (4.2-5.4); WHITE BLOOD COUNT 6.01 K/uL (4.8-10.8)
[2017-04-20 12:48] LABS: BUN/CREATININE RATIO 34.2 (10-20); CALCIUM 9.3 mg/dl (8.5-10.1); CREATININE 1.4 mg/dl (0.60-1.20); POTASSIUM 3.9 mmol/L (3.5-5.1)
[2017-04-20 13:26] LABS: URINE APPEARANCE CLEAR (CLEAR); URINE BILIRUBIN NEG (NEG); URINE COLOR YELLOW; URINE NITRITE NEG (NEG); URINE SPECIFIC GRAVITY 1.017 (1.000-1.030); UROBILINOGEN NEG (NEG)
[2017-04-20 13:31] LABS: MANUAL MICROSCOPIC REQUIRED? NO; REVIEW REQ? NO
[2017-04-20] MEDS ORDERED: OPTIRAY 320 IV PRN (14:15)
--- NOTE | 2017-04-20 14:37 | DIAGNOSTIC IMAGING REPORT ---
ABD/PELVIS IV AND ORAL CONT HISTORY: 56 years-old Female Pt c/o RLQ abd pain, diarrhea acute right lower quadrant abdominal pain with diarrhea. COMPARISON: Upper GI series 03/11/2017, CT abdomen and pelvis 04/23/2016 TECHNIQUE: Multiple axial CT images of the abdomen and pelvis were obtained following the intravenous administration of 93 mL Optiray 320. Oral contrast was also used. A dose lowering technique was used consistent with the principals of UNA. FINDINGS: Minimal groundglass opacities of the lung bases are seen suggesting atelectasis. Subsegmental linear atelectasis is seen within the lower lobes. No pneumoperitoneum identified. The liver, spleen and adrenal glands are within normal limits. There is moderate to severe pancreatic atrophy. Prior cholecystectomy. Mild nonspecific bilateral perinephric edema. Kidneys, ureters and urinary bladder are unremarkable. Prior hysterectomy. Small left fat filled inguinal hernia. There is mild atherosclerotic plaquing of the abdominal aorta. No bulky retroperitoneal adenopathy. There've been interval postsurgical changes of prior Chente-en-Y gastric bypass. The excluded stomach is mildly distended with air-fluid level. No oral contrast is seen within the excluded limb. There is progression of oral contrast through the jejunal jejunal anastomosis and into small bowel of the central abdomen. Dilated loops of small bowel measure up to 3.0 cm. Several loops of small bowel are noted adjacent to the anterior abdominal wall suspicious for underlying adhesions. More distally partially collapsed loop of small bowel are seen without high-grade transition point definitively seen. There are a few mildly prominent mesenteric lymph nodes which measure up to 1.0 cm in short axis, nonspecific. Colonic diverticulosis without acute diverticulitis. There is air within the colon. No evidence of acute appendicitis. There is soft tissue edema of the anterior abdominal wall, nonspecific. The bones appear intact. There is 3 mm anterolisthesis L4 on L5, likely secondary to associated severe facet arthropathy. IMPRESSION: 1. Prior Chente-en-Y gastric bypass with several loops of mildly dilated small bowel within the mid and lower central abdomen measuring up to 3.0 cm with decreased transit of contrast into distal collapsed small bowel loops suggesting low-grade small bowel obstruction without definite transition point identified, likely secondary to underlying adhesions. This finding could be further evaluated with a small bowel follow-through to assess level and grade of obstruction. 2. Air-fluid level with minimally distended excluded stomach, nonspecific. No oral contrast is seen within the excluded limb to suggest anastomotic dehiscence. 3. Mild nonspecific adenopathy of the central mesentery. 4. No pneumoperitoneum. 5. Prior cholecystectomy and hysterectomy. The above report was generated using voice recognition software. It may contain grammatical, syntax or spelling errors. Electronically signed by: Jose Ghosh M.D. 04/20/2017 2:35 PM Dictated Date/Time: 04/20/2017 2:24 PM
--- NOTE | 2017-04-20 15:16 | EMERGENCY ROOM VISIT NOTE ---
ED Visit Note First contact with patient: 15:08 I assumed the care of this patient from Dr. Hutson. Brief medical history as the patient had a recent gastric bypass surgery completed by Dr. Polanco on Friday. Patient states that she was having 15 episodes of loose stools and diarrhea beginning around 5 AM this morning. She is CT the abdomen which did show a small bowel obstruction. Dr. Hutson did call the transfer center and spoke with the bariatric surgeon who wanted a repeat CT of the abdomen pelvis completed. Plan is if the patient is able tolerate by mouth does not have a small bowel obstruction may go home. Samples have been ordered however the patient has not had a bowel movements that she has arrived here. CT showed improvement of bowel dilatation and forward flow of oral contrast. I spoke w/ Dr. Polanco. He agreed w/ POC. Patient tolerated clear liquids. Has Rx's for home. No refills needed. Given f/u, d/c, and return precautions and was d/c'ed to home. The patient's radiology studies are as stated below: ABD/PELVIS ORAL CONT ONLY HISTORY: 56 years-old Female SBO follow-up study in a patient with small bowel obstruction. COMPARISON: CT of same day at 2:07 PM TECHNIQUE: Interval axial CT images of the abdomen and pelvis were obtained following oral contrast. This is a delayed study to assess progression of oral contrast. A dose lowering technique was used consistent with the principals of CORIRA. FINDINGS: Lung bases are clear. Calcifications of the mitral annulus noted. No pneumoperitoneum. Liver, spleen, adrenal glands are within normal limits. Moderate to severe pancreatic atrophy. Prior cholecystectomy. Retained oral contrast noted within the bilateral renal collecting systems. Kidneys are within normal limits. Urinary bladder is partially collapsed. Prior hysterectomy. Atherosclerotic plaquing of the abdominal aorta. No bulky adenopathy. Prior Chente-en-Y gastric bypass. Fluid is again seen within the excluded limb without contrast. There is progression of oral contrast into distal small bowel and colon. Mildly prominent small bowel loops of the upper abdomen are seen measuring up to 2.8 cm which appears to have improved from prior study. No pneumatosis. Colonic diverticulosis without diverticulitis. Normal appendix. Edema of the body wall. Patient obesity noted. 3 mm anterolisthesis L4 on L5, likely secondary to facet arthropathy. IMPRESSION: 1. Progression of oral contrast into the colon with decreased small bowel distention as above. 2. Prior Chente-en-Y gastric bypass, cholecystectomy and hysterectomy. 3. Additional incidental findings as above. The above report was generated using voice recognition software. It may contain grammatical, syntax or spelling errors. Electronically signed by: Jose Ghosh M.D. 04/20/2017 5:49 PM Dictated Date/Time: 04/20/2017 5:44 PM
--- NOTE | 2017-04-20 17:50 | DIAGNOSTIC IMAGING REPORT ---
ABD/PELVIS ORAL CONT ONLY HISTORY: 56 years-old Female SBO follow-up study in a patient with small bowel obstruction. COMPARISON: CT of same day at 2:07 PM TECHNIQUE: Interval axial CT images of the abdomen and pelvis were obtained following oral contrast. This is a delayed study to assess progression of oral contrast. A dose lowering technique was used consistent with the principals of UNA. FINDINGS: Lung bases are clear. Calcifications of the mitral annulus noted. No pneumoperitoneum. Liver, spleen, adrenal glands are within normal limits. Moderate to severe pancreatic atrophy. Prior cholecystectomy. Retained oral contrast noted within the bilateral renal collecting systems. Kidneys are within normal limits. Urinary bladder is partially collapsed. Prior hysterectomy. Atherosclerotic plaquing of the abdominal aorta. No bulky adenopathy. Prior Chente-en-Y gastric bypass. Fluid is again seen within the excluded limb without contrast. There is progression of oral contrast into distal small bowel and colon. Mildly prominent small bowel loops of the upper abdomen are seen measuring up to 2.8 cm which appears to have improved from prior study. No pneumatosis. Colonic diverticulosis without diverticulitis. Normal appendix. Edema of the body wall. Patient obesity noted. 3 mm anterolisthesis L4 on L5, likely secondary to facet arthropathy. IMPRESSION: 1. Progression of oral contrast into the colon with decreased small bowel distention as above. 2. Prior Chente-en-Y gastric bypass, cholecystectomy and hysterectomy. 3. Additional incidental findings as above. The above report was generated using voice recognition software. It may contain grammatical, syntax or spelling errors. Electronically signed by: Jose Ghosh M.D. 04/20/2017 5:49 PM Dictated Date/Time: 04/20/2017 5:44 PM
[2017-04-20 18:50] VITALS: BP 135/63; PULSE 69; O2SAT 93
== END 2017-04-20 18:52 | disposition home or self-care (01) ==
LOC: C.EDB 11:03 → C.EDA 18:52
DX: R19.7 Diarrhea, unspecified (principal); N18.3 Chronic kidney disease, stage 3 (moderate); I50.9 Heart failure, unspecified; F32.9 Major depressive disorder, single episode, unspecified; E11.9 Type 2 diabetes mellitus without complications; K57.90 Diverticulosis of intestine, part unspecified, without perforation or abscess without bleeding; E78.5 Hyperlipidemia, unspecified; I10 Essential (primary) hypertension; E03.9 Hypothyroidism, unspecified; E61.1 Iron deficiency; E66.01 Morbid (severe) obesity due to excess calories; Z82.49 Family history of ischemic heart disease and other diseases of the circulatory system; Z79.82 Long term (current) use of aspirin; Z79.4 Long term (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 insulin

== ENCOUNTER 2017-10-31 08:09 | Emergency (ER) | payer OTHER ==
[~2017-10-31] VITALS: Ht 162.6 cm; Wt 112.5 kg
[~2017-10-31 08:09] MED LIST changes: +BUPR75TA20 PO; -CALC1CAP36 PO; -DAPA1TAB2 PO; +DAPA1TAB8 PO; -FRS/40 PO; +FURO-85 PO; +INSDGI SC; -INSDGI SQ; +METF-384 PO; +METR0.7527; -METROGEL 1%; -PANT1TAB48 PO; -WLLSR100 PO
[2017-10-31 08:10] VITALS: TEMP 36.6; Ht 162.6 cm; Wt 112.5 kg
--- NOTE | 2017-10-31 08:20 | EMERGENCY ROOM VISIT NOTE ---
ED Visit Note First contact with patient: 08:17 Resident Physician Supervision Note: I interviewed and examined the patient. Discussed with Dr. Davidson and agree with findings and plan as documented in the note. Documented By: Angelo Hutson This is a 56-year-old female who presents emergency department complaining of abdominal as well as chest pain. The pain seems to be abdominal in nature as she is exquisitely tender to the left lower quadrant. Because of this laboratory work was obtained. I will note that the patient had a normal cardiac cath. In addition she has a normal EKG as well as CK-MB and troponin functions here. The patient was given a GI cocktail Pepcid and Carafate which seemed to have relieved her symptoms. The patient had a history of gastric bypass and for this reason was sent for a CAT scan of the abdomen and pelvis. The d-dimer was mistakenly ordered on this patient however I do not feel that this is a PE that the patient is feeling as the pain appears to be in her abdomen and she is not having any shortness of breath or chest pain with inspiration. She is also has no hemoptysis. Duplex of the patient's legs is also normal. The patient does have chronic kidney disease however appears to be at her baseline. Her CAT scan shows diverticulosis however she has a slight elevation in her white blood cell count. This taken with the tenderness in the left lower quadrant I strongly suspect suspect that the patient may have an early diverticulitis. I am going to start the patient on Cipro and Flagyl and recommended a MiraLAX cleanout for her constipation. I did offer admission to the patient however she does wish to go home. Strongly recommended she return if she is unable to keep antibiotics down. She was given Zofran home pack. The patient has demonstrated no significant defect in the decision-making capacity to make choices. The encounter had a good level of communication with language the patient can easily understand. I feel trust was present and conveyed that our action/intentions were the best interest of the patient. The patient was given all relevant information and reiterated the explained risks and benefits. I offered options, negotiated, and explored every reasonable choice. I must respect the patient's autonomy and that they feel that their choices are best for them. The patient was informed about the findings as listed above. All questions were answered and he was pleased with the treatment. Return instructions were outlined and the patient was discharged in stable condition. Problem List Medical Problems: (1) CHRONIC KIDNEY DISEASE, STAGE III (MODERATE) Status: Chronic (2) CONGESTIVE HEART FAILURE NOS Status: Chronic (3) DEPRESSIVE DISORDER NEC Status: Chronic (4) DIAB JOSE A WO COMPL, TYPE II OR UNSPEC TYPE, NOT UNCNTRLD Status: Chronic (5) DIABETIC RETINOPATHY NOS Status: Chronic (6) DIVERTICULOSIS COLON (W/O MENT OF HEMORRHAGE) Status: Chronic (7) Endometrial carcinoma Permanent Comment: S/P hysterectomy Status: Resolved (8) HYPERLIPIDEMIA NEC/NOS Status: Chronic (9) HYPERTENSION NOS Status: Chronic (10) HYPOTHYROIDISM NOS Status: Chronic (11) IRON DEFIC ANEMIA NOS Status: Chronic (12) LUMBOSACRAL SPONDYLOSIS Status: Chronic (13) MORBID OBESITY Status: Chronic (14) NEUROPATHY IN DIABETES Status: Chronic (15) ROSACEA Status: Chronic Surgical Problems: (1) Abdominal hysterectomy Status: Resolved (2) H/O esophagogastroduodenoscopy Status: Chronic (3) Hx of cardiac cath Permanent Comment: 2012, negative for CAD Status: Chronic (4) S/P knee surgery Status: Chronic (5) Tonsillectomy Status: Resolved Current/Historical Medications Scheduled Biotin (Biotin), 2 TABS PO QAM Bupropion (Wellbutrin), 75 MG PO QAM Calcium Citrate Tetrahydrate ( (Calcium Citrate), 1 TAB PO HS Carvedilol (Coreg), 12.5 MG PO BID Cholecalciferol (Vitamin D3), 1,000 UNITS PO QPM Ciprofloxacin Hcl (Cipro), 1 TAB PO BID Citalopram Hydrobromide (Citalopram Hydrobromide), 40 MG PO QAM Furosemide (Lasix), 20 MG PO QAM Gabapentin (Neurontin), 600 MG PO TID Hydralazine HCl (Hydralazine HCl), 50 MG PO TID Insulin Glargine (Lantus), 25 UNITS SC BID Insulin Lispro (Human) (Humalog), SQ ACHS Isosorbide Mononitrate Ext Rel (Imdur Ext Rel), 60 MG PO QAM Levothyroxine Sodium (Synthroid), 100 MCG PO QAM Metronidazole (Flagyl), 500 MG PO BID Metronidazole (Topical) (Metrogel), 1 APPLN BID Multiple Vitamin (Multivitamin), 1 TAB PO BID Ondasetron Odt (Zofran Odt), 4 MG SL Q6H Pantoprazole (Pantoprazole Sodium), 40 MG PO QAM Simvastatin (Zocor), 20 MG PO QPM Scheduled PRN Tramadol (Ultram), 50 MG PO Q4H PRN for Pain Allergies Coded Allergies: CHIDI Inhibitors (Verified Adverse Reaction, Mild, COUGH, 10/31/17) Vital Signs Date Time Temp Pulse Resp B/P (MAP) Pulse Ox O2 Delivery O2 Flow Rate FiO2 10/31/17 12:16 50 10/31/17 12:14 49 16 184/71 10/31/17 09:29 64 16 123/60 10/31/17 08:41 97 10/31/17 08:24 61 10/31/17 08:10 36.6 58 20 137/62 98 Room Air Laboratory Results 10/31/17 08:20 Red Blood Count 3.70, Mean Corpuscular Volume 92.2, Mean Corpuscular Hemoglobin 30.5, Mean Corpuscular Hemoglobin Concent 33.1, Mean Platelet Volume 10.1, Neutrophils (%) (Auto) 62.6, Lymphocytes (%) (Auto) 29.0, Monocytes (%) (Auto) 6.2, Eosinophils (%) (Auto) 1.7, Basophils (%) (Auto) 0.3, Neutrophils # (Auto) 6.83, Lymphocytes # (Auto) 3.15, Monocytes # (Auto) 0.67, Eosinophils # (Auto) 0.18, Basophils # (Auto) 0.03 10/31/17 08:20 Test 10/31/17 08:20 White Blood Count 10.88 K/uL (4.8-10.8) Red Blood Count 3.70 M/uL (4.2-5.4) Hemoglobin 11.3 g/dL (12.0-16.0) Hematocrit 34.1 % (37-47) Mean Corpuscular Volume 92.2 fL (80-100) Mean Corpuscular Hemoglobin 30.5 pg (25-34) Mean Corpuscular Hemoglobin Concent 33.1 g/dl (32-36) Platelet Count 219 K/uL (130-400) Mean Platelet Volume 10.1 fL (7.4-10.4) Neutrophils (%) (Auto) 62.6 % Lymphocytes (%) (Auto) 29.0 % Monocytes (%) (Auto) 6.2 % Eosinophils (%) (Auto) 1.7 % Basophils (%) (Auto) 0.3 % Neutrophils # (Auto) 6.83 K/uL (1.4-6.5) Lymphocytes # (Auto) 3.15 K/uL (1.2-3.4) Monocytes # (Auto) 0.67 K/uL (0.11-0.59) Eosinophils # (Auto) 0.18 K/uL (0-0.5) Basophils # (Auto) 0.03 K/uL (0-0.2) RDW Standard Deviation 44.0 fL (36.4-46.3) RDW Coefficient of Variation 13.2 % (11.5-14.5) Immature Granulocyte % (Auto) 0.2 % Immature Granulocyte # (Auto) 0.02 K/uL (0.00-0.02) D-Dimer 540 ug/L FEU (0-500) Anion Gap 6.0 mmol/L (3-11) Est Creatinine Clear Calc Drug Dose 44.1 ml/min Estimated GFR () 37.6 Estimated GFR (Non- 32.4 BUN/Creatinine Ratio 27.4 (10-20) Calcium Level 9.0 mg/dl (8.5-10.1) Total Bilirubin 0.5 mg/dl (0.2-1) Aspartate Amino Transf (AST/SGOT) 259 U/L (15-37) Alanine Aminotransferase (ALT/SGPT) 180 U/L (12-78) Alkaline Phosphatase 140 U/L (45-117) Total Creatine Kinase 77 U/L (26-192) Creatine Kinase MB 1.3 ng/ml (0.5-3.6) Creatine Kinase MB Ratio 1.7 (0-3.0) Troponin I < 0.015 ng/ml (0-0.045) Total Protein 7.5 gm/dl (6.4-8.2) Albumin 3.7 gm/dl (3.4-5.0) Globulin 3.8 gm/dl (2.5-4.0) Albumin/Globulin Ratio 1.0 (0.9-2) Lipase 179 U/L (73-393) Medications Administered Medications (Trade) Dose Ordered Sig/Christina Route Start Time Stop Time Status Last Admin Dose Admin Famotidine (Pepcid Tab) 20 mg NOW STAT PO 10/31/17 09:02 10/31/17 09:04 DC 10/31/17 09:27 20 MG Sucralfate (Carafate Tab) 1 gm NOW STAT PO 10/31/17 09:02 10/31/17 09:04 DC 10/31/17 09:27 1 GM Al Hydroxide/Mg Hydroxide (Maalox Susp) 30 ml STK-MED ONCE .ROUTE 10/31/17 09:22 10/31/17 09:23 DC 10/31/17 09:22 30 ML Lidocaine HCl (Viscous Lidocaine 2% Soln) 20 ml STK-MED ONCE .ROUTE 10/31/17 09:22 10/31/17 09:23 DC 10/31/17 09:22 20 ML Ciprofloxacin (Cipro Tab) 500 mg NOW STAT PO 10/31/17 12:29 10/31/17 12:31 DC 10/31/17 12:48 500 MG Metronidazole (Flagyl Tab) 500 mg NOW STAT PO 10/31/17 12:29 10/31/17 12:31 DC 10/31/17 12:48 500 MG Departure Information Prescriptions Ondasetron Odt (ZOFRAN ODT) 4 Mg Tab 4 MG SL Q6H for Nausea, #6 TAB Prov: Angelo Hutson MD 10/31/17 Metronidazole (Flagyl) 500 Mg Tab 500 MG PO BID, #20 TAB Prov: Angelo Hutson MD 10/31/17 Ciprofloxacin Hcl (CIPRO) 500 Mg Tab 1 TAB PO BID for 10 Days, #20 TAB Prov: Angelo Hutson MD 10/31/17 Referrals Luis Fernando Rojas M.D. (PCP) Patient Instructions [facility]
[2017-10-31 08:34] LABS: BASO % 0.3 %; BASO ABS # 0.03 K/uL (0-0.2); EOS % 1.7 %; EOS ABS # 0.18 K/uL (0-0.5); HEMATOCRIT 34.1 % (37-47); HEMOGLOBIN 11.3 g/dL (12.0-16.0); IG# 0.02 K/uL (0.00-0.02); LYMPH ABS # 3.15 K/uL (1.2-3.4); MEAN CELL VOLUME 92.2 fL (80-100); MEAN CORPUSCULAR HEMOGLOBIN 30.5 pg (25-34); MEAN CORPUSCULAR HGB CONC 33.1 g/dl (32-36); MEAN PLATELET VOLUME 10.1 fL (7.4-10.4); MONO % 6.2 %; MONO ABS # 0.67 K/uL (0.11-0.59); NEUT % 62.6 %; NEUT ABS # 6.83 K/uL (1.4-6.5); PLATELET COUNT 219 K/uL (130-400); RED CELL DISTRIBUTION WIDTH CV 13.2 % (11.5-14.5); WHITE BLOOD COUNT 10.88 K/uL (4.8-10.8)
[2017-10-31 08:41] VITALS: O2SAT 97
[2017-10-31] MEDS ORDERED: CALCPOW18 PO (08:49)
[2017-10-31] MEDS ORDERED: BIOT1POW3 PO (08:49)
[2017-10-31] MEDS ORDERED: PANT40TA2 PO (08:49)
--- NOTE | 2017-10-31 08:53 | EMERGENCY ROOM VISIT NOTE ---
History First contact with patient: 08:14 Chief Complaint: CHEST PAIN Stated Complaint: SEVERE CHEST PAIN Nursing Triage Summary: pt here with chest pressure that began this am, pt states began in abd area then continued to radiate up into chest. slight sob. pt states no pain in arms, neck or jaw. very slight nausea. pt states hx of chf. lungs diminished History of Present Illness The patient is a 56 year old female with hx of HTN, HLD, CHF, CKD stage 3, hypothyroidism, DM2, gastric bypass in Mar 2017 with hernia repair who presents to the Emergency Room with complaints of upper abdominal pain that radiated to chest while driving this AM prior to arrival. Pain radiated to bilateral shoulders as well. Described as pressure and tightness like pain. Associated with nausea and palpitations initially (now resolved), now having some sob. Germaine any previous episodes of similar pain, abdominal pain now, vomiting, d/c, dysuria, FLORES/dizziness. Pt worried she may be having a heart attack Review of Systems see below Constitutional: No fever Respiratory: + shortness of breath Cardiovascular: + chest pain Abdomen: + pain, + nausea, No vomiting Genitourinary - Female: No dysuria Past Medical/Surgical History Medical Problems: (1) CHRONIC KIDNEY DISEASE, STAGE III (MODERATE) (2) CONGESTIVE HEART FAILURE NOS (3) DEPRESSIVE DISORDER NEC (4) DIAB JOSE A WO COMPL, TYPE II OR UNSPEC TYPE, NOT UNCNTRLD (5) DIABETIC RETINOPATHY NOS (6) DIVERTICULOSIS COLON (W/O MENT OF HEMORRHAGE) (7) Endometrial carcinoma (8) History of melanoma (9) HYPERLIPIDEMIA NEC/NOS (10) HYPERTENSION NOS (11) HYPOTHYROIDISM NOS (12) IRON DEFIC ANEMIA NOS (13) LUMBOSACRAL SPONDYLOSIS (14) MORBID OBESITY (15) NEUROPATHY IN DIABETES (16) ROSACEA (17) SOB (shortness of breath) Surgical Problems: (1) Abdominal hysterectomy (2) H/O esophagogastroduodenoscopy (3) Hx of cardiac cath (4) S/P knee surgery (5) Tonsillectomy Family History Cancer FATHER (Melenoma ) Diabetes mellitus Heart disease FATHER SISTER Hypertension Lung disease Social History Smoking Status: Never Smoker Alcohol Use: none Drug Use: none Marital Status: Housing Status: lives with family Occupation Status: employed Current/Historical Medications Scheduled Biotin (Biotin), 2 TABS PO QAM Bupropion (Wellbutrin), 75 MG PO QAM Calcium Citrate Tetrahydrate ( (Calcium Citrate), 1 TAB PO HS Carvedilol (Coreg), 12.5 MG PO BID Cholecalciferol (Vitamin D3), 1,000 UNITS PO QPM Ciprofloxacin Hcl (Cipro), 1 TAB PO BID Citalopram Hydrobromide (Citalopram Hydrobromide), 40 MG PO QAM Furosemide (Lasix), 20 MG PO QAM Gabapentin (Neurontin), 600 MG PO TID Hydralazine HCl (Hydralazine HCl), 50 MG PO TID Insulin Glargine (Lantus), 25 UNITS SC BID Insulin Lispro (Human) (Humalog), SQ ACHS Isosorbide Mononitrate Ext Rel (Imdur Ext Rel), 60 MG PO QAM Levothyroxine Sodium (Synthroid), 100 MCG PO QAM Metronidazole (Flagyl), 500 MG PO BID Metronidazole (Topical) (Metrogel), 1 APPLN BID Multiple Vitamin (Multivitamin), 1 TAB PO BID Ondasetron Odt (Zofran Odt), 4 MG SL Q6H Pantoprazole (Pantoprazole Sodium), 40 MG PO QAM Simvastatin (Zocor), 20 MG PO QPM Scheduled PRN Tramadol (Ultram), 50 MG PO Q4H PRN for Pain Physical Exam Vital Signs Date Time Temp Pulse Resp B/P (MAP) Pulse Ox O2 Delivery O2 Flow Rate FiO2 10/31/17 13:01 53 16 148/51 10/31/17 12:16 50 10/31/17 12:14 49 16 184/71 10/31/17 09:29 64 16 123/60 10/31/17 08:41 97 10/31/17 08:24 61 10/31/17 08:10 36.6 58 20 137/62 98 Room Air Physical Exam see below General Appearance: no apparent distress Head: normocephalic, atraumatic Eyes: normal inspection ENT: normal ENT inspection Neck: supple Respiratory/Chest: lungs clear, normal breath sounds, + pertinent finding ( chest TTP ) Cardiovascular: regular rate, rhythm, no murmur Abdomen / GI: normal bowel sounds, soft, + tenderness (diffusely tender to palpation; no rebound tenderness) Back: normal inspection Neurologic/Psych: alert, oriented x 3 Medical Decision & Procedures Laboratory Results 10/31/17 08:20 Red Blood Count 3.70, Mean Corpuscular Volume 92.2, Mean Corpuscular Hemoglobin 30.5, Mean Corpuscular Hemoglobin Concent 33.1, Mean Platelet Volume 10.1, Neutrophils (%) (Auto) 62.6, Lymphocytes (%) (Auto) 29.0, Monocytes (%) (Auto) 6.2, Eosinophils (%) (Auto) 1.7, Basophils (%) (Auto) 0.3, Neutrophils # (Auto) 6.83, Lymphocytes # (Auto) 3.15, Monocytes # (Auto) 0.67, Eosinophils # (Auto) 0.18, Basophils # (Auto) 0.03 10/31/17 08:20 Test 10/31/17 08:20 White Blood Count 10.88 K/uL (4.8-10.8) Red Blood Count 3.70 M/uL (4.2-5.4) Hemoglobin 11.3 g/dL (12.0-16.0) Hematocrit 34.1 % (37-47) Mean Corpuscular Volume 92.2 fL (80-100) Mean Corpuscular Hemoglobin 30.5 pg (25-34) Mean Corpuscular Hemoglobin Concent 33.1 g/dl (32-36) Platelet Count 219 K/uL (130-400) Mean Platelet Volume 10.1 fL (7.4-10.4) Neutrophils (%) (Auto) 62.6 % Lymphocytes (%) (Auto) 29.0 % Monocytes (%) (Auto) 6.2 % Eosinophils (%) (Auto) 1.7 % Basophils (%) (Auto) 0.3 % Neutrophils # (Auto) 6.83 K/uL (1.4-6.5) Lymphocytes # (Auto) 3.15 K/uL (1.2-3.4) Monocytes # (Auto) 0.67 K/uL (0.11-0.59) Eosinophils # (Auto) 0.18 K/uL (0-0.5) Basophils # (Auto) 0.03 K/uL (0-0.2) RDW Standard Deviation 44.0 fL (36.4-46.3) RDW Coefficient of Variation 13.2 % (11.5-14.5) Immature Granulocyte % (Auto) 0.2 % Immature Granulocyte # (Auto) 0.02 K/uL (0.00-0.02) D-Dimer 540 ug/L FEU (0-500) Anion Gap 6.0 mmol/L (3-11) Est Creatinine Clear Calc Drug Dose 44.1 ml/min Estimated GFR () 37.6 Estimated GFR (Non- 32.4 BUN/Creatinine Ratio 27.4 (10-20) Calcium Level 9.0 mg/dl (8.5-10.1) Total Bilirubin 0.5 mg/dl (0.2-1) Aspartate Amino Transf (AST/SGOT) 259 U/L (15-37) Alanine Aminotransferase (ALT/SGPT) 180 U/L (12-78) Alkaline Phosphatase 140 U/L (45-117) Total Creatine Kinase 77 U/L (26-192) Creatine Kinase MB 1.3 ng/ml (0.5-3.6) Creatine Kinase MB Ratio 1.7 (0-3.0) Troponin I < 0.015 ng/ml (0-0.045) Total Protein 7.5 gm/dl (6.4-8.2) Albumin 3.7 gm/dl (3.4-5.0) Globulin 3.8 gm/dl (2.5-4.0) Albumin/Globulin Ratio 1.0 (0.9-2) Lipase 179 U/L (73-393) Medications Administered Medications (Trade) Dose Ordered Sig/Christina Route Start Time Stop Time Status Last Admin Dose Admin Famotidine (Pepcid Tab) 20 mg NOW STAT PO 10/31/17 09:02 10/31/17 09:04 DC 10/31/17 09:27 20 MG Sucralfate (Carafate Tab) 1 gm NOW STAT PO 10/31/17 09:02 10/31/17 09:04 DC 10/31/17 09:27 1 GM Al Hydroxide/Mg Hydroxide (Maalox Susp) 30 ml STK-MED ONCE .ROUTE 10/31/17 09:22 10/31/17 09:23 DC 10/31/17 09:22 30 ML Lidocaine HCl (Viscous Lidocaine 2% Soln) 20 ml STK-MED ONCE .ROUTE 10/31/17 09:22 10/31/17 09:23 DC 10/31/17 09:22 20 ML Ciprofloxacin (Cipro Tab) 500 mg NOW STAT PO 10/31/17 12:29 10/31/17 12:31 DC 10/31/17 12:48 500 MG Metronidazole (Flagyl Tab) 500 mg NOW STAT PO 10/31/17 12:29 10/31/17 12:31 DC 10/31/17 12:48 500 MG Medical Decision 56y/oF with hx of 56 year old female with hx of HTN, HLD, CHF, CKD stage 3, hypothyroidism, DM2, gastric bypass in Mar 2017 with hernia repair who presents to the Emergency Room with complaints of upper abdominal pain that radiated to chest and upper shoulders while driving this AM prior to arrival. Given LLQ abdominal pain concerning for diverticulitis however no evidence on CT despite mildly elevated WBC of 10.9. Possibly also due to constipation. Recommended clear liquid diet for 2 days and bowel clean out. No concern for PE despite mildly elevated d-dimer as chest pain non-pleuritic and likely radiating from abdominal pain. LE doppler also somewhat reassuring as no evidence of DVT. Cardiac markers and EKG normal which rules out UT. Patient instructed to return if not improving or having worsening symptoms in 48 hours. -Ordered EKG - sinus bradycardia 56 QTC 411 -Ordered troponin, CKMB - negative/normal -Ordered Lipase - normal -Ordered CBC, CMP: WBC 10.88; H/H 11.3/34.1: AST 259, ALT 180, Alk Phos 140 -D-dimer: 540 -Doppler b/l LE: no DVT -Abd US: no biliary ductal dilation, post cholecystectomy, normal -Abd/Pelvis contrast CT: no diverticulitis/mild-mod colonic diverticulosis; mild -moderate colonic fecal retention; no abdominal infection/inflammation -Ordered CXR: negative -Received GI cocktail pepcid, carafate, maalox Blood Pressure Screening Patient's blood pressure: Normal blood pressure Impression Primary Impression: Diverticulitis Additional Impression: Constipation Departure Information Dispostion Home / Self-Care Condition GOOD Prescriptions Ondasetron Odt (ZOFRAN ODT) 4 Mg Tab 4 MG SL Q6H for Nausea, #6 TAB Prov: Angelo Hutson MD 10/31/17 Metronidazole (Flagyl) 500 Mg Tab 500 MG PO BID, #20 TAB Prov: Angelo Hutson MD 10/31/17 Ciprofloxacin Hcl (CIPRO) 500 Mg Tab 1 TAB PO BID for 10 Days, #20 TAB Prov: Angelo Hutson MD 10/31/17 Referrals Luis Fernando Rojas M.D. (PCP) Patient Instructions [facility] Problem Qualifiers
[2017-10-31 08:54] LABS: ALBUMIN 3.7 gm/dl (3.4-5.0); ALT/SGPT 180 U/L (12-78); BLOOD UREA NITROGEN 47 mg/dl (7-18); CARBON DIOXIDE 24 mmol/L (21-32); CREATININE 1.71 mg/dl (0.60-1.20); GLUCOSE 166 mg/dl (70-99); LIPASE 179 U/L (73-393); POTASSIUM 4.2 mmol/L (3.5-5.1); SODIUM 135 mmol/L (136-145)
[2017-10-31 08:59] LABS: ALKALINE PHOSPHATASE 140 U/L (45-117); AST/SGOT 259 U/L (15-37); CKMB 1.3 ng/ml (0.5-3.6); TOTAL PROTEIN 7.5 gm/dl (6.4-8.2)
[2017-10-31] MEDS ORDERED: FAMOTIDINE 20 MG TAB PO STA (09:02)
[2017-10-31] MEDS ORDERED: SUCRALFATE 1 GM TAB PO STA (09:02)
[2017-10-31] MEDS ORDERED: GI COCKTAIL PO STA (09:02)
--- NOTE | 2017-10-31 09:04 | DIAGNOSTIC IMAGING REPORT ---
CHEST ONE VIEW PORTABLE CLINICAL HISTORY: Severe chest pain. Shortness of breath. COMPARISON STUDY: Chest radiograph December 22, 2016. FINDINGS: Lung volumes are normal. No pneumothorax or pleural effusion is noted. Cardiac size is normal. Mediastinal contours are normal. There is no evidence for pulmonary edema. IMPRESSION: No acute cardiopulmonary findings. Electronically signed by: Mihir Loaiza M.D. 10/31/2017 9:03 AM Dictated Date/Time: 10/31/2017 9:02 AM
[2017-10-31] MEDS ORDERED: ALUMINUM/MAGNESIUM SUSP 30 ML UDC ONE (09:22)
[2017-10-31] MEDS ORDERED: LIDOCAINE HCL 2% VISC SOLN 20 ML UDC ONE (09:22)
--- NOTE | 2017-10-31 11:19 | DIAGNOSTIC IMAGING REPORT ---
BILATERAL LOWER EXTREMITY VENOUS DOPPLER CLINICAL HISTORY: Bilateral lower extremity pain. COMPARISON STUDY: Bilateral lower extremity venous Doppler December 22, 2016. TECHNIQUE: Sonography of the deep venous system of the bilateral lower extremities was performed. Compression and augmentation were evaluated. FINDINGS: The bilateral common femoral, superficial femoral and popliteal veins were compressible. Augmentation was normal. Flow was shown within the deep calf vessels. IMPRESSION: No evidence of deep venous thrombus within the bilateral lower extremities. Electronically signed by: Mihir Loaiza M.D. 10/31/2017 11:17 AM Dictated Date/Time: 10/31/2017 11:17 AM
--- NOTE | 2017-10-31 11:20 | DIAGNOSTIC IMAGING REPORT ---
ABDOMINAL ULTRASOUND, RIGHT UPPER QUADRANT HISTORY: Right upper quadrant abdominal pain. COMPARISON: Right upper corner ultrasound May 31, [address] of the abdomen and pelvis April 20, 2017. FINDINGS: Exam is mildly compromised by suboptimal penetration. There is no biliary ductal dilatation status post cholecystectomy. No hepatic lesions are identified. The pancreatic body is normal. The head and tail are obscured. There is no right hydronephrosis. IMPRESSION: 1. No biliary ductal dilatation status post cholecystectomy. 2. Study mildly compromised by suboptimal penetration. Electronically signed by: Mihir Loaiza M.D. 10/31/2017 11:19 AM Dictated Date/Time: 10/31/2017 11:18 AM
--- NOTE | 2017-10-31 12:17 | DIAGNOSTIC IMAGING REPORT ---
CT SCAN OF THE ABDOMEN AND PELVIS WITHOUT IV CONTRAST CLINICAL HISTORY: Epigastric abdominal pain COMPARISON STUDY: Abdominal CT dated 04/20/2017. TECHNIQUE: CT scan of the abdomen and pelvis is performed from the lung bases to the proximal femora. Images are reviewed in the axial, sagittal, and coronal planes. IV contrast was not administered for this examination as per the referring clinician due to poor renal function. Oral contrast was utilized. A dose lowering technique was utilized adhering to the principles of ALARA. CT DOSE: 1578.25 mGy.cm FINDINGS: Lung bases: The heart is normal in size and without pericardial effusion. The mitral annulus is densely calcified. The lung bases are clear. Liver: The unenhanced liver is normal in size, contour, and attenuation. There is no intrahepatic biliary ductal dilatation. Gallbladder: Surgically absent noting clips in the gallbladder fossa. Spleen: Normal in size and attenuation. Pancreas: The unenhanced pancreas is atrophic and grossly unremarkable. Adrenal glands: Unremarkable. Kidneys: The unenhanced kidneys demonstrate cortical atrophy and are without hydronephrosis. There are no renal calculi identified. There is no evidence of contour deforming renal mass lesion. Abdominal vasculature: The abdominal aorta is normal in course and caliber noting moderate atherosclerotic calcification. Stomach and bowel: There are postoperative changes consistent with a Chente-en-Y gastric bypass procedure. No bowel obstruction is seen there is mild to moderate colonic diverticulosis without CT evidence of acute diverticulitis. Mild to moderate colonic fecal retention is observed. The appendix is well-visualized and normal. Peritoneum: There is no intraperitoneal free air or abdominal ascites. Lymphadenopathy: None. Pelvic viscera: The gallbladder is normal as visualized. The uterus is surgically absent. No adnexal lesion is seen. Skeletal structures: The skeletal structures are osteopenic. Mild to moderate lumbosacral spondylosis is observed. No lytic or blastic lesions are seen. IMPRESSION: 1. There are no acute infectious or inflammatory findings in the abdomen or pelvis. 2. There are postoperative changes consistent with a Chente-en-Y gastric bypass procedure. No bowel obstruction is seen. 3. Mild to moderate colonic diverticulosis without CT evidence of acute diverticulitis. 4. Mild/moderate colonic fecal retention. 5. Additional findings as above. Electronically signed by: Marco Antonio Martins M.D. 10/31/2017 12:16 PM Dictated Date/Time: 10/31/2017 12:10 PM
[2017-10-31] MEDS ORDERED: METRONIDAZOLE 250 MG TAB PO STA (12:29)
[2017-10-31] MEDS ORDERED: CIPROFLOXACIN 500 MG TAB PO STA (12:29)
[2017-10-31] MEDS ORDERED: CIPR-255 PO (12:32)
[2017-10-31] MEDS ORDERED: METR-163 PO (12:32)
[2017-10-31] MEDS ORDERED: ONDA4TAB10 SL (12:34)
[2017-10-31 13:01] VITALS: BP 148/51; PULSE 53
== END 2017-10-31 13:05 | disposition home or self-care (01) ==
LOC: C.EDB 08:11 → C.EDA 13:05
DX: K57.92 Diverticulitis of intestine, part unspecified, without perforation or abscess without bleeding (principal); K59.00 Constipation, unspecified; N18.3 Chronic kidney disease, stage 3 (moderate); I50.9 Heart failure, unspecified; F32.9 Major depressive disorder, single episode, unspecified; E11.319 Type 2 diabetes mellitus with unspecified diabetic 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 edema; K57.30 Diverticulosis of large intestine without perforation or abscess without bleeding; E78.5 Hyperlipidemia, unspecified; I13.0 Hypertensive heart and chronic kidney disease with heart failure and stage 1 through stage 4 chronic kidney disease, or unspecified chronic kidney disease; E03.9 Hypothyroidism, unspecified; D50.9 Iron deficiency anemia, unspecified; M47.817 Spondylosis without myelopathy or radiculopathy, lumbosacral region; E66.3 Overweight; E11.40 Type 2 diabetes mellitus with diabetic neuropathy, unspecified; L71.9 Rosacea, unspecified; Z90.710 Acquired absence of both cervix and uterus; Z90.89 Acquired absence of other organs; Z98.84 Bariatric surgery status; Z85.42 Personal history of malignant neoplasm of other parts of uterus; Z85.820 Personal history of malignant melanoma of skin; Z79.899 Other long term (current) drug therapy; Z79.4 Long term (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 insulin; Z88.8 Allergy status to other drugs, medicaments and biological substances; Z82.49 Family history of ischemic heart disease and other diseases of the circulatory system

== ENCOUNTER → 2017-12-11 | Day surgery (SDC) | payer OTHER ==
[2017-12-03 09:48] VITALS: BMI 40.0
[~2017-12-11] VITALS: Ht 162.6 cm; Wt 106.8 kg
[~2017-12-11] MED LIST changes: -ASPCH81X PO; +BIOT1POW3 PO; -CALC-20 PO; +CALCPOW18 PO; -CLOB-77 TOP; -DAPA1TAB8 PO; -FRRS300 PO; +LIDOCAINE HCL 2% 2 ML VIAL (20MG/ML) ONE; -METF-384 PO; -OMEG10007 PO; +PANT40TA2 PO; +PROPOFOL IV EMULSION 10 MG/ML 20 ML VIAL ONE; +SODIUM CHLORIDE 0.9% 500ML 500 ML IV ONE; +VITAMIN B12 INJ
[2017-12-11 10:04] VITALS: Ht 162.6 cm; Wt 106.8 kg
--- NOTE | 2017-12-11 10:30 | Endo History and Physical ---
History & Physical Date of Service: December 11, 2017. Chief Complaint: History of Polyps Referring Physician: History of Present Illness 56 yo presenting for follow up of colon polyps. Past Medical History Diabetes, Arthritis, Glaucoma, Cancer, High Cholesterol, Sleep Apnea, CHF, Hypertension, COPD, Thyroid Disease, Kidney Disease Past Surgical History Hx Cardiac Surgery: Yes (CARDIAC CATH (DIAGNOSITIC ONLY)NO STENT 2014) Hx Internal Defibrillator: No Hx Pacemaker: No Hx Abdominal Surgery: Yes ([place] [facility],HERNIA/GASTRIC BYPASS,GB SURG) Hx Post-Op Nausea and Vomiting: Yes (PONV) Hx Cancer Surgery: Yes ([place] [facility],MELONAOMA REMOVED LEFT POSTERIOR CALF) Hx Thoracic Surgery: No Hx Orthopedic: Yes (R KNEE SCOPE,L KNEE HEMATOMA EVACUATION) Hx Urinary Tract Surgery: No ( ) Family History Colon CA, Polyp, IBD Social History Smoking Status: Never Smoker Hx Substance Use: No Hx Alcohol Use: No Allergies Coded Allergies: CHIDI Inhibitors (Verified Adverse Reaction, Mild, COUGH, 12/03/17) Current Medications Reported Home Medications Medications Dose Route/Sig Max Daily Dose Days Date Category Dose Instructions [Vitamin B12] 1 Dose INJ [id number] 12/03/17 Reported Pantoprazole Sodium (Pantoprazole) 40 Mg Tab 40 Mg PO QAM 10/31/17 Reported Biotin 1 Pow Pow 2 Tabs PO QAM 10/31/17 Reported Calcium Citrate (Calcium Citrate Tetrahydrate () 1 Pow Pow 1 Tab PO HS 10/31/17 Reported Wellbutrin (Bupropion HCl) 75 Mg Tab 75 Mg PO QAM 04/20/17 Reported Metrogel (Metronidazole (Topical)) 0.75 % Gel 1 Appln BID 04/20/17 Reported Lasix (Furosemide) 20 Mg Tab 20 Mg PO QAM 04/20/17 Reported Lantus (Insulin Glargine) 100 Unit/Ml Inj 25 Units SC BID 04/20/17 Reported Ultram (Tramadol HCl) 50 Mg Tab 50 Mg PO Q4H PRN 12/22/16 Reported Imdur Ext Rel (Isosorbide Mononitrate) 60 Mg Ertab 60 Mg PO QAM 12/22/16 Reported Zocor (Simvastatin) 20 Mg Tab 20 Mg PO QPM 12/22/16 Reported Humalog (Insulin Lispro (Human)) 100 Unit/Ml Inj SQ ACHS 12/22/16 Reported PER SLIDING SCALE Vitamin D3 (Cholecalciferol) 1,000 Unit Tab 1,000 Units PO QPM 06/08/16 Reported Hydralazine HCl 100 Mg Tab 50 Mg PO TID 06/08/16 Reported Coreg (Carvedilol) 12.5 Mg Tab 12.5 Mg PO BID 02/23/13 Reported Citalopram Hydrobromide 40 Mg Tab 40 Mg PO QAM 02/23/13 Reported Neurontin (Gabapentin) 600 Mg Tab 600 Mg PO TID 07/15/12 Reported Multivitamin (Multiple Vitamin) 1 Tab Tab 1 Tab PO BID 03/05/12 Reported Synthroid (Levothyroxine Sodium) 100 Mcg Tab 100 Mcg PO QAM 03/05/12 Reported Vital Signs Weight (Kilograms): 106.82 Height (Feet): 5 Height (Inches): 4 Date Time Temp Pulse Resp B/P (MAP) Pulse Ox O2 Delivery O2 Flow Rate FiO2 12/11/17 10:16 36.5 50 16 124/45 (71) 97 Room Air Physical Exam General Appearance: WD/WN, no apparent distress Respiratory/Chest: Respiratory effort: no dyspnea Auscultation: breath sounds normal, no rhonchi Cardiovascular: Apical Impulse: not displaced Heart Auscultation: RRR, normal S1 Abdomen: Bowel Sounds: normal Inspection & Palpation: soft, non-distended Assessment and Plan 56 yo presenting for follow up of colon polyps. -Proceed with colonoscopy
--- NOTE | 2017-12-11 11:21 | Discharge Instructions ---
Endoscopy Patient Instructions Date / Procedure(s) Performed December 11, 2017. Colonoscopy Allergy Information Coded Allergies: CHIDI Inhibitors (Verified Adverse Reaction, Mild, COUGH, 12/03/17) Discharge Date / Findings December 11, 2017. Ascending colon polyp, sigmoid diverticulosis. Path letter to be sent out. Repeat colonscopy in 5 years. Medication Instructions Restart Stopped Medication(s): Restart any medication stopped for the colonscopy. Provider Instructions Activity Restrictions - No exercising or heavy lifting for 24 hours. - Do not drink alcohol the day of the procedure. - Do not drive a car or operate machinery until the day after the procedure. - Do not make any important decisions or sign important papers in 24 hours after the procedure. Following Day: - Return to full activity which may include returning to work/school. Diet Start your diet with liquids and light foods (jello, soup, juice, toast). Then eat your usual diet if not nauseated. Treatment For Common After Affects For mild abdominal pain, bloating, or excessive gas: - Rest - Eat lightly - Lie on right side Follow-Up Information Follow-up with DR. RANGEL as scheduled Anesthesia Information What You Should Know You have had a procedure that required some medicine to reduce anxiety and discomfort. This treatment is called moderate sedation. After receiving the treatment, you may be sleepy, but you will be able to breathe on your own. The effects of the treatment may last for several hours. Follow these instructions along with Activity/Diet recommendations noted above: * Do NOT do anything where dizziness or clumsiness would be dangerous. * Rest quietly at home today, then you can be up and about tomorrow. * Have a responsible person stay with you the rest of today. * You may have had an I.V. today. If so, you may take the dressing off later today. Recommendations Call your doctor if: * Trouble breathing * Continuous vomiting for more than 24 hours * Temperature above 101 degrees * Severe abdominal pain or bloating * Pain not relieved by pain medicine ordered * There is increased drainage or redness from any incision * A large amount of rectal bleeding greater than 2-3 tablespoons. (If you had a polyp/s removed or have hemorrhoids, a small amount of blood - from the rectum is to be expected.) * You have any unanswered questions or concerns. IN THE EVENT OF A SERIOUS EMERGENCY, GO TO THE NEAREST EMERGENCY ROOM Your discharge instructions were prepared by provider Alisa Chua. Patient Instructions Signature Page Candi Irvin Patient (or Guardian) Signature/Date: I have read and understand the instructions given to me by my caregivers. Caregiver/RN/Doctor Signature/Date: The above-named patient and/or guardian has received patient instructions on this date. + Original Patient Signature Page (only) stays with chart. Please make copy for patient.
--- NOTE | 2017-12-11 11:23 | GI REPORT ---
Patient Name: Candi Irvin Procedure Date: 12/11/2017 10:42 AM Date of : 1960 Admit Type: Outpatient Age: 56 Gender: Female Attending MD: Adin Borja MD Procedure: Colonoscopy Providers: Adin Borja MD, Alisa Chua MD Referring MD: Luis Fernando Bowman MD, Luis Fernando Rojas Indications: Follow-up for history of colon polyp (2014- ascending colon (polyp not retrieved)) Medicines: Propofol per Anesthesia Complications: No immediate complications. Estimated Blood Loss: Minimal. Estimated blood loss: none. Procedure: Pre-Anesthesia Assessment: - Pre-Anesthesia Assessment: - Prior to the procedure, a History and Physical was performed, and patient medications, allergies and sensitivities were reviewed. The patient's tolerance of previous anesthesia was reviewed. Please see [email or web address] for complete details. - The risks and benefits of the procedure and the sedation options and risks were discussed with the patient. All questions were answered and informed consent was obtained. - Patient identification and proposed procedure were verified prior to the procedure by the physician and the nurse. The procedure was verified in the pre-procedure area in the procedure room. After obtaining informed consent, the endoscope was passed carefully and meticuously under direct vision and only advanced when the lumen was clearly identified, C02 insuflation was utilized throughout the entirity of the procedure. Throughout the procedure, the patient's blood pressure, pulse, and oxygen saturations were monitored continuously. After I obtained informed consent, the scope was passed under direct vision. Throughout the procedure, the patient's blood pressure, pulse, and oxygen saturations were monitored continuously. The scope was introduced through the anus and advanced to the cecum, identified by appendiceal orifice and ileocecal valve. The colonoscopy was performed without difficulty. The patient tolerated the procedure well. The quality of the bowel preparation was adequate to identify polyps 6 mm and larger in size. Findings: A 4 mm polyp was found in the ascending colon. The polyp was sessile. The polyp was removed with a cold snare. Resection and retrieval were complete. Verification of patient identification for the specimen was done by the physician and nurse using the patient's name and medical record number. Scattered small-mouthed diverticula were found in the sigmoid colon. The exam was otherwise without abnormality on direct and retroflexion views. Impression: - One 4 mm polyp in the ascending colon, removed with a cold snare. Resected and retrieved. - Sigmoid diverticulosis. - The examination was otherwise normal on direct and retroflexion views. Recommendation: - Await pathology results. - Repeat colonoscopy in 5 years for surveillance. - Discharge to home. Adin Borja MD 12/11/2017 11:22:53 AM This report has been signed electronically. Alisa Chua MD 12/11/2017 11:19:36 AM Note Initiated On: 12/11/2017 10:42 AM Number of Addenda: 0 I attest to the content of the Intraoperative Record and orders documented therein, exceptions below {[id number]}
[2017-12-11 11:50] VITALS: BP 125/75; PULSE 46; O2SAT 98
--- NOTE | 2017-12-11 12:30 | Anesthesiology Progress Note ---
Anesthesia Post Op Note Date & Time December 11, 2017 at 12:30 Vital Signs Pain Intensity: 0 Vital Signs Past 12 Hours Date Time Temp Pulse Resp B/P (MAP) Pulse Ox O2 Delivery O2 Flow Rate FiO2 12/11/17 11:50 46 16 125/75 (92) 98 Room Air 12/11/17 11:30 48 16 124/48 (73) 96 Room Air 12/11/17 11:15 52 16 114/44 (67) 96 Room Air 12/11/17 10:16 36.5 50 16 124/45 (71) 97 Room Air Notes Mental Status: alert / awake / arousable, participated in evaluation Pt Amnestic to Procedure: Yes Nausea / Vomiting: adequately controlled Pain: adequately controlled Airway Patency, RR, SpO2: stable & adequate BP & HR: stable & adequate Hydration State: stable & adequate Anesthetic Complications: no major complications apparent
== END | disposition home or self-care (01) ==
LOC: C.GI 09:50
PROVIDERS: ATTEND Internal Medicine
DX: Z86.010 Personal history of colon polyps (principal); D12.2 Benign neoplasm of ascending colon; K57.30 Diverticulosis of large intestine without perforation or abscess without bleeding; G47.33 Obstructive sleep apnea (adult) (pediatric); I11.0 Hypertensive heart disease with heart failure; E11.9 Type 2 diabetes mellitus without complications; E03.9 Hypothyroidism, unspecified; E78.5 Hyperlipidemia, unspecified; F32.9 Major depressive disorder, single episode, unspecified; Z80.0 Family history of malignant neoplasm of digestive organs; I50.9 Heart failure, unspecified; Z85.820 Personal history of malignant melanoma of skin; Z98.84 Bariatric surgery status; Z79.4 Long term (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 insulin; Z79.899 Other long term (current) drug therapy; Z90.710 Acquired absence of both cervix and uterus; Z90.89 Acquired absence of other organs

== ENCOUNTER 2018-07-05 11:55 | Observation (INO) ==
[2018-07-05] MEDS ORDERED: SODIUM CHLORIDE 0.9% 1000ML 1,000 ML IV SCH ×2 (12:45→21:30)
[2018-07-05 13:22] LABS: Basophils # (auto) 0.03 K/uL (0-0.2); Basophils % (auto) 0.4 %; Eosinophils # (auto) 0.09 K/uL (0-0.5); Eosinophils % (auto) 1.1 %; Hematocrit (blood only) 32.4 % (37-47); Hemoglobin 10.4 g/dL (12.0-16.0); Immature Granulocytes # (auto) 0.01 K/uL (0.00-0.02); Immature Granulocytes % (auto) 0.1 %; Lymphocytes # (auto) 2.53 K/uL (1.2-3.4); Lymphocytes % (auto) 30.4 %; Mean Corpuscular Hgb Conc 32.1 g/dL (32-36); Mean Corpuscular Volume 93.6 fL (80-100); Mean Platelet Volume 10.6 fL (7.4-10.4); Monocytes # (auto) 0.62 K/uL (0.11-0.59); Monocytes % (auto) 7.5 %; Neutrophils # (auto) 5.04 K/uL (1.4-6.5); Neutrophils % (auto) 60.5 %; Platelet Count 188 K/uL (130-400); RDW Coefficient of Variation 13.2 % (11.5-14.5); RDW Standard Deviation 45.2 fL (36.4-46.3); Red Blood Count 3.46 M/uL (4.2-5.4); White Blood Count 8.32 K/uL (4.8-10.8)
[2018-07-05 13:47] LABS: Alanine Aminotransferase 92 U/L (12-78); Albumin Level 3.3 gm/dl (3.4-5.0); Aspartate Aminotransferase 43 U/L (15-37); BUN Creatinine Ratio 25.5 (10-20); Bilirubin Direct < 0.1 mg/dl (0-0.2); Blood Urea Nitrogen 47 mg/dl (7-18); Carbon Dioxide 27 mmol/L (21-32); Chloride 105 mmol/L (98-107); Creatinine Clr Calc Pharmacy 40.8 ml/min; Est GFR (African American) 33.7; Est GFR (Non-African American) 29.1; Glucose 315 mg/dl (70-99); Potassium 5.6 mmol/L (3.5-5.1); Sodium 137 mmol/L (136-145)
[2018-07-05 13:50] LABS: Albumin Globulin Ratio 0.9 (0.9-2); Bilirubin,Total 0.2 mg/dl (0.1-1); Globulin 3.6 gm/dl (2.5-4.0); Total Protein 6.9 gm/dl (6.4-8.2)
[2018-07-05 14:06] LABS: Alkaline Phosphatase 103 U/L (45-117); Creatine Kinase 160 U/L (26-192); Creatine Kinase MB 1.7 ng/ml (0.5-3.6); Troponin I < 0.015 ng/ml (0-0.045)
--- NOTE | 2018-07-05 16:05 | History & Physical Report ---
Date of Service July 05, 2018 Assessment & Plan (1) Bradycardia: (2) Drug ingestion, accidental: This is a 57-year-old female with a PMH of chronic diastolic heart failure , DM II, HTN, HLD, CKD 3 and other medical problems listed below who presents with dizziness, jaw pain and generalized weakness starting a few hours ago after acidentally ingesting her 's medication. -Accidentally took her 's morning medications today which included the following: Atenolol 100 mg, olmesartan 5 mg, hydrochlorothiazide 12.5 mg, Plavix 75 mg and a calcium supplement 625 mg -Seminary dizzy and generally weak, with HR of 40 -Lab abnormalities include K of 5.6, Cr of 1.86 (baseline ~1.5), BSG of 315 -No acute EKG changes, normal troponin -Gentle IV fluid resuscitation -Repeat BMP at 2000 -Monitor on telemetry (3) Jaw pain: Unclear etiology. R/o ACS due to cardiac risk factors -EKG without acute ST changes -Initial troponin normal -Repeat troponin this evening -Telemetry (4) Diabetes mellitus, type II: BSG elevated at 315 upon arrival in setting of inadequate corrective insulin this morning -Recent a1c of 7.6 in May 2018 -Given 8 u IV regular insulin in ED -Basal/bolus insulin ordered per protocol -BSG AC HS (5) CKD (chronic kidney disease), stage III: Cr slightly elevated from baseline at 1.86 -In the setting of poor fluid intake, accidental medication ingestion today -Expect improvement with gentle IV hydration (6) Diastolic heart failure: Euvolemic on exam. Took home dose 40mg PO lasix this AM -Received 1 L NSS in ED -Continue Carvedilol, lasix (7) HTN (hypertension): Normotensive. Continue home carvedilol, lasix, hydralazine (8) HLD (hyperlipidemia): Continue atorvastatin (9) MDD (major depressive disorder): Continue Wellbutrin, Celexa (10) GERD (gastroesophageal reflux disease): Continue PPI DVT Ppx: SQ heparin Code status: FULL PCP: [facility] Dispo: Observation telemetry. Plan to return home once medically stable. Patient seen in collaboration with Dr. Cleveland. Please see addendum. History of Present Illness Primary Care Provider: Luis Fernando Rojas This is a 57-year-old female with a PMH of chronic diastolic heart failure, DM II, HTN, HLD, CKD 3 and other medical problems listed below who presents with dizziness, jaw pain and generalized weakness starting a few hours ago. Patient accidentally took her 's morning medications today which included the following: Atenolol 100 mg, olmesartan 5 mg, hydrochlorothiazide 12.5 mg, Plavix 75 mg and a calcium supplement 625 mg. Patient then took her own morning medications as well. Went to [facility] and felt fine until the [employer] green party, when she felt dizzy and disoriented, with bilateral jaw pain and generalized weakness. Checked her heart rate on smart watch and saw that it was 40 bpm (baseline HR ~55). Was helped to the ground and given some orange juice, with improvement of symptoms. Was then brought to the ED by EMS for further evaluation. Patient is A&Ox4 with mildly elevated blood pressure and a heart rate close to baseline at 55 bpm. No leukocytosis. Hemoglobin close to baseline at 10.4. Hyperkalemic at 5.6, with slightly elevated creatinine of 1.86 (baseline Cr ~1.5 ) and elevated blood sugar of 315. States that she took her normal 25 units of Lantus this morning but ate a lot of carbohydrate rich foods at the green party and was then given orange juice prior to arrival. Currently endorsing generalized weakness and bilateral jaw pain. Denies any lightheadedness, dizziness, confusion, chest pain, palpitations, shortness of breath, abdominal pain, nausea , vomiting, dysuria, hematuria, hematochezia or melena. Allergies Allergy/AdvReac Type Severity Reaction Status Date / Time CHIDI Inhibitors AdvReac Mild COUGH Verified 07/05/18 12:33 Home Medications Home Medications Medication Instructions Recorded Confirmed Type atorvastatin 40 mg PO DAILY 07/05/18 07/05/18 History bupropion HCl [Wellbutrin SR] 200 mg PO DAILY 07/05/18 07/05/18 History carvedilol 6.25 mg PO BID 07/05/18 07/05/18 History citalopram 40 mg PO DAILY 07/05/18 07/05/18 History furosemide 40 mg PO DAILY 07/05/18 07/05/18 History gabapentin 600 mg PO TID 07/05/18 07/05/18 History hydralazine 50 mg PO TID 07/05/18 07/05/18 History insulin glargine [Lantus U-100 25 unit SUBCUT BID 07/05/18 07/05/18 History Insulin] insulin lispro [Humalog U-100 1 sliding scale dose SUBCUT UD 07/05/18 07/05/18 History Insulin] levothyroxine [Synthroid] 100 mcg PO DAILY 07/05/18 07/05/18 History multivitamin 1 tab PO DAILY 07/05/18 07/05/18 History [id number] oil [Downing-3 1 cap PO DAILY 07/05/18 07/05/18 History Fish Oil] pantoprazole 40 mg PO DAILY 07/05/18 07/05/18 History Past Med/Surg History Medical History MINISTERIO on CPAP (Chronic) CKD (chronic kidney disease), stage III (Chronic) MDD (major depressive disorder) (Chronic) HLD (hyperlipidemia) (Chronic) HTN (hypertension) (Chronic) Diabetes mellitus, type II (Chronic) Diastolic heart failure (Chronic) Endometrial carcinoma (Resolved 02/23/13) "S/P hysterectomy " History of melanoma (Resolved) Difficult airway for intubation (Resolved) Surgical History S/P knee surgery (Chronic) H/O esophagogastroduodenoscopy (Chronic) History of cholecystectomy (Resolved) Hx of cardiac cath (Resolved) "2012, negative for CAD " Family History Other Colonic polyp GERD (gastroesophageal reflux disease) Social History Current Living Situation: Spouse Feels Safe at Home: Yes Safety Concerns: Feels Safe At This Time Smoking Status: Never smoker Do You Dip or Chew Tobacco: No Second Hand Exposure: No Tobacco Cessation Education Requested by Patient: No Hx Alcohol Use: No Beliefs That Will Affect Care: None Preferred Language: Kinyarwanda Communication Ability: Effective [employer] Collection Officer Required: No Review of Systems Constitutional: + weakness; no fever, no chills and no sweats Eyes: no diplopia Ear, Nose, Mouth, Throat: + dizziness; no nasal congestion and no sore throat jaw pain Respiratory: no cough, no chest congestion and no dyspnea Cardiovascular: no chest pain, no dyspnea, no dyspnea on exertion and no palpitations Gastrointestinal: no abdominal pain, no bloating, no nausea, no vomiting, no change in bowel habits and no constipation Genitourinary (Female): no dysuria and no hematuria Musculoskeletal: no joint pain Integumentary: no rash and no change in skin color Neurologic: + generalized weakness; no gait abnormality, no localized weakness, no tingling, no numbness and no paresthesia Psychiatric: no behavioral changes Physical Exam 2 Vital Signs (Past 24 Hours): Last Vital Signs Temp 36.8 C 07/05/18 12:05 Pulse 53 L 07/05/18 14:31 Resp 19 07/05/18 14:31 BP 161/61 H 07/05/18 14:31 Pulse Ox 96 07/05/18 14:00 Physical Exam: General Appearance: WD/WN, no apparent distress. + obese. Resting comfortably Head: normocephalic, atraumatic Eyes: normal inspection, PERRL, EOMI ENT: hearing grossly normal, pharynx normal (moist mucous membranes) Neck: supple, no JVD, no adenopathy Respiratory/Chest: lungs clear to auscultation. No wheezes, rales or rhonci. No respiratory distress or accessory muscle use Cardiovascular: bradycardia, regular rhythm, no murmur appreciated, normal peripheral pulses Abdomen/GI: normal bowel sounds, soft, non-tender to palpation Extremities/Musculoskelatal: normal inspection, no calf tenderness, normal capillary refill, trace pedal edema Neurologic/Psych: alert, normal mood/affect, oriented x 3 Skin: normal color, warm/dry Results & Data Laboratory Results Short CBC 07/05/18 Range/Units 13:08 WBC 8.32 (4.8-10.8) K/uL Hgb 10.4 L (12.0-16.0) g/dL Hct 32.4 L (37-47) % Plt Count 188 (130-400) K/uL BMP 07/05/18 13:08 Sodium 137 Potassium 5.6 H Chloride 105 Carbon Dioxide 27 BUN 47 H Creatinine 1.86 H Glucose 315 H Calcium 9.0 Cardiac Enzymes 07/05/18 Range/Units 13:08 Total Creatine Kinase 160 (26-192) U/L CK-MB (CK-2) 1.7 (0.5-3.6) ng/ml Troponin I < 0.015 (0-0.045) ng/ml Liver Function 07/05/18 Range/Units 13:08 Total Bilirubin 0.2 (0.1-1) mg/dl Direct Bilirubin < 0.1 (0-0.2) mg/dl AST 43 H (15-37) U/L ALT 92 H (12-78) U/L Alkaline Phosphatase 103 (45-117) U/L Albumin 3.3 L (3.4-5.0) gm/dl ECG Rhythm: sinus bradycardia Findings: + 1st degree AV block Change: the following changes noted (new PACs) Code Status & VTE Plan Code Status FULL code VTE Prophylaxis Plan VTE Prophylaxis will be ordered: Yes Supervising Physician Co-Signing Physician Notes Record reviewed. Patient interviewed and examined. Care coordinated with Bridget Bravo PA-C. Please refer to her documentation for patient's history. Briefly, 57 YO female with history of hypertension, DM, and other problems. Inadvertently took husbands meds this morning- atenolol, olmesartan, HCTZ, aspirin, clopidogrel, atorvastatin. Seminary weak in [facility]. Pulse rate was in the 40's. Empirically given orange juice for possible hypoglycemia. EXAM: General- no distress Lungs- clear to auscultation; no respiratory distress Cardiovascular- RRR; I/ systolic murmur LSB; no gallop; no JVD; no pretibial edema Abdomen- + bowel sounds, soft, nontender Extremities- no cyanosis; no calf tenderness Neuro- alert, oriented Skin- warm & dry DATA: K 5.6 BUN 47, creatinine 1.86 random glucose 315 Other lab studies as noted. EKG performed at 12:05 reviewed and demonstrated SB at 50 / minute, first degree AV block, PAC's, no acute ST or T-wave changes. ASSESSMENT AND PLAN: Accidental drug overdose- atenolol, olmesartan, HCTZ, aspirin, clopidogrel, atorvastatin. Prone to bradycardia; usual HR in 50's on low dose carvedilol. HR in ED in 40's and 50's. Monitor rhythm & hemodynamics. History diastolic CHF. Serum creatinine elevated compared to baseline. Received IV fluid in ED. Hold furosemide. Follow exam. Check repeat labs in a.m. Serum K 5.6. No associated EKG changes. Took dose of olmesartan this morning. K should improve with IV fluids and insulin. Follow. Random glucose 315. Received orange juice in [facility] for possible hypoglycemia. Took 25 units of Lantus this morning. Continue Lantus 25 unit BID. NovoLog coverage per protocol. Please refer to RODRIGO Bravo's documentation for discussion of other issues.
[2018-07-05] MEDS ORDERED: NovoLIN-R INSULIN PER UNIT CHARGE IV ONE (16:15)
[2018-07-05] MEDS ORDERED: GLUCOSE 40% GEL 15 GM TUBE PO PRN ×2 (16:21→18:08)
[2018-07-05] MEDS ORDERED: GLUCOSE 10 TABS/TUBE PO PRN ×2 (16:21→18:08)
[2018-07-05] MEDS ORDERED: GLUCAGON FOR INJ 1 MG VIAL IM PRN (16:21)
[2018-07-05] MEDS ORDERED: DEXTROSE 50% 50 ML SYRINGE IV PRN ×2 (16:21→18:08)
[2018-07-05] MEDS ORDERED: CARBOHYDRATES FOR HYPOGLYCEMIA PO PRN ×2 (16:21→18:08)
[2018-07-05] MEDS ORDERED: NovoLIN-R INSULIN PER UNIT CHARGE ONE (16:22)
[2018-07-05] MEDS ORDERED: INSULIN HUMAN REGULAR PER UNIT 8 UNITS in SYRINGE 7.92 ML IV ONE (16:30)
[2018-07-05] MEDS ORDERED: ONDANSETRON INJ 2 MG/ML 2 ML VIAL IV PRN (18:08)
[2018-07-05] MEDS ORDERED: GLUCAGON FOR INJ 1 MG VIAL SQ PRN (18:08)
[2018-07-05] MEDS ORDERED: ACETAMINOPHEN 325 MG TAB PO PRN (18:08)
[2018-07-05] MEDS ORDERED: POLYETHYLENE (MIRALAX) 17 GM PACK PO PRN (18:08)
--- NOTE | 2018-07-05 18:29 | Emergency Department Note ---
History of Present Illness General Chief complaint: Overdose (Accidental) Stated complaint: weakness/bradycardia Time Seen by Provider: 07/05/18 12:04 Source: patient and family Mode of arrival: EMS History of Present Illness Maximum Pain Intensity: 5 This 57-year-old white female presents with her , for evaluation of jaw pain, weakness, and not feeling right. She states this morning she accidentally took all of her 's morning medications. She then took all of her normal morning medication. Approximately an hour and a half later while at [employer] she began having jaw pain and feeling weak. She states she has not taken his medications in the past. She states it was merely an accident this morning. There was no other intent. She currently denies any chest pain or abdominal pain. No nausea or vomiting. No headache. She does feel mildly short of breath and had some dizziness earlier. No other complaints. She did take his amlodipine, Plavix, olmesartan, calcium supplement, and HCTZ. Home Medications Home Medications Medication Instructions Recorded Confirmed Type atorvastatin 40 mg PO DAILY 07/05/18 07/05/18 History bupropion HCl [Wellbutrin SR] 200 mg PO DAILY 07/05/18 07/05/18 History carvedilol 6.25 mg PO BID 07/05/18 07/05/18 History citalopram 40 mg PO DAILY 07/05/18 07/05/18 History furosemide 40 mg PO DAILY 07/05/18 07/05/18 History gabapentin 600 mg PO TID 07/05/18 07/05/18 History hydralazine 50 mg PO TID 07/05/18 07/05/18 History insulin glargine [Lantus U-100 25 unit SUBCUT BID 07/05/18 07/05/18 History Insulin] insulin lispro [Humalog U-100 1 sliding scale dose SUBCUT UD 07/05/18 07/05/18 History Insulin] levothyroxine [Synthroid] 100 mcg PO DAILY 07/05/18 07/05/18 History multivitamin 1 tab PO DAILY 07/05/18 07/05/18 History [id number]-fish oil [Kyburz-3 1 cap PO DAILY 07/05/18 07/05/18 History Fish Oil] pantoprazole 40 mg PO DAILY 07/05/18 07/05/18 History Allergies Allergy/AdvReac Type Severity Reaction Status Date / Time CHIDI Inhibitors AdvReac Mild COUGH Verified 07/05/18 12:33 Past Med/Surg History Medical History MINISTERIO on CPAP (Chronic) CKD (chronic kidney disease), stage III (Chronic) MDD (major depressive disorder) (Chronic) HLD (hyperlipidemia) (Chronic) HTN (hypertension) (Chronic) Diabetes mellitus, type II (Chronic) Diastolic heart failure (Chronic) Endometrial carcinoma (Resolved 02/23/13) "S/P hysterectomy " History of melanoma (Resolved) Difficult airway for intubation (Resolved) Surgical History S/P knee surgery (Chronic) H/O esophagogastroduodenoscopy (Chronic) History of cholecystectomy (Resolved) Hx of cardiac cath (Resolved) "2012, negative for CAD " Family History Other Colonic polyp GERD (gastroesophageal reflux disease) Social History Current Living Situation: Spouse Feels Safe at Home: Yes Safety Concerns: Feels Safe At This Time Smoking Status: Never smoker Do You Dip or Chew Tobacco: No Second Hand Exposure: No Tobacco Cessation Education Requested by Patient: No Hx Alcohol Use: No Beliefs That Will Affect Care: None Preferred Language: Pashto Communication Ability: Effective Sales Representative Graphic Art Required: No Review of Systems A total of 10 systems reviewed and were otherwise negative Physical Exam Vital Signs Vital Signs - 24 hr 07/05/18 12:02 07/05/18 12:05 07/05/18 12:08 Temperature 36.8 C Temperature Source Oral Sepsis Recent Fever Within 48 Hours No Sepsis New/Unexplained Change in Mental Status No Sepsis Action Taken by Nursing No Action Required Pulse Rate 55 L 55 L 54 L Pulse Rate [Apical] Pulse Rhythm Regular Pulse Rhythm [Apical] Pulse Strength Normal Pulse Strength [Apical] Respiratory Rate 17 17 20 Respiratory Effort / Characteristics Non-Labored Respiratory Depth Normal Respiratory Pattern Regular Blood Pressure 142/52 H 142/52 H Blood Pressure [Right Arm] Blood Pressure Mean 82 82 Blood Pressure Mean [Right Arm] Pulse Oximetry 97 97 97 Pulse Oximetry [Middle Finger] Oxygen Delivery Method Room Air Oxygen Delivery Method [Middle Finger] 07/05/18 12:16 07/05/18 12:30 07/05/18 13:00 Temperature Temperature Source Sepsis Recent Fever Within 48 Hours Sepsis New/Unexplained Change in Mental Status Sepsis Action Taken by Nursing Pulse Rate 52 L 57 L Pulse Rate [Apical] Pulse Rhythm Pulse Rhythm [Apical] Pulse Strength Pulse Strength [Apical] Respiratory Rate 19 22 Respiratory Effort / Characteristics Respiratory Depth Respiratory Pattern Blood Pressure 144/59 H Blood Pressure [Right Arm] Blood Pressure Mean 87 Blood Pressure Mean [Right Arm] Pulse Oximetry 90 Pulse Oximetry [Middle Finger] Oxygen Delivery Method Room Air Oxygen Delivery Method [Middle Finger] 07/05/18 13:30 07/05/18 14:00 07/05/18 14:30 Temperature Temperature Source Sepsis Recent Fever Within 48 Hours Sepsis New/Unexplained Change in Mental Status Sepsis Action Taken by Nursing Pulse Rate 56 L 57 L 56 L Pulse Rate [Apical] Pulse Rhythm Pulse Rhythm [Apical] Pulse Strength Pulse Strength [Apical] Respiratory Rate 16 15 14 Respiratory Effort / Characteristics Respiratory Depth Respiratory Pattern Blood Pressure 155/60 H 168/64 H Blood Pressure [Right Arm] Blood Pressure Mean 91 98 Blood Pressure Mean [Right Arm] Pulse Oximetry 96 Pulse Oximetry [Middle Finger] Oxygen Delivery Method Oxygen Delivery Method [Middle Finger] 07/05/18 14:31 07/05/18 14:32 07/05/18 15:00 Temperature Temperature Source Sepsis Recent Fever Within 48 Hours Sepsis New/Unexplained Change in Mental Status Sepsis Action Taken by Nursing Pulse Rate 53 L 49 L 59 L Pulse Rate [Apical] Pulse Rhythm Pulse Rhythm [Apical] Pulse Strength Pulse Strength [Apical] Respiratory Rate 19 17 12 Respiratory Effort / Characteristics Respiratory Depth Respiratory Pattern Blood Pressure 161/61 H Blood Pressure [Right Arm] Blood Pressure Mean 94 Blood Pressure Mean [Right Arm] Pulse Oximetry Pulse Oximetry [Middle Finger] Oxygen Delivery Method Oxygen Delivery Method [Middle Finger] 07/05/18 15:01 07/05/18 15:30 07/05/18 16:00 Temperature Temperature Source Sepsis Recent Fever Within 48 Hours Sepsis New/Unexplained Change in Mental Status Sepsis Action Taken by Nursing Pulse Rate 55 L 55 L 48 L Pulse Rate [Apical] Pulse Rhythm Pulse Rhythm [Apical] Pulse Strength Pulse Strength [Apical] Respiratory Rate 19 17 17 Respiratory Effort / Characteristics Respiratory Depth Respiratory Pattern Blood Pressure 150/65 H 159/65 H Blood Pressure [Right Arm] Blood Pressure Mean 93 96 Blood Pressure Mean [Right Arm] Pulse Oximetry Pulse Oximetry [Middle Finger] Oxygen Delivery Method Oxygen Delivery Method [Middle Finger] 07/05/18 16:01 07/05/18 16:31 07/05/18 16:32 Temperature Temperature Source Sepsis Recent Fever Within 48 Hours Sepsis New/Unexplained Change in Mental Status Sepsis Action Taken by Nursing Pulse Rate 52 L 48 L 47 L Pulse Rate [Apical] Pulse Rhythm Pulse Rhythm [Apical] Pulse Strength Pulse Strength [Apical] Respiratory Rate 21 15 17 Respiratory Effort / Characteristics Respiratory Depth Respiratory Pattern Blood Pressure 165/72 H 172/51 H 178/67 H Blood Pressure [Right Arm] Blood Pressure Mean 103 91 104 Blood Pressure Mean [Right Arm] Pulse Oximetry Pulse Oximetry [Middle Finger] Oxygen Delivery Method Oxygen Delivery Method [Middle Finger] 07/05/18 16:34 07/05/18 17:23 07/05/18 18:00 Temperature 36.9 C 36.9 C Temperature Source Oral Oral Sepsis Recent Fever Within 48 Hours Sepsis New/Unexplained Change in Mental Status Sepsis Action Taken by Nursing Pulse Rate 48 L Pulse Rate [Apical] 45 L 45 L Pulse Rhythm Pulse Rhythm [Apical] Regular Regular Pulse Strength Pulse Strength [Apical] Normal Normal Respiratory Rate 19 18 18 Respiratory Effort / Characteristics Non-Labored Spontaneous Non-Labored Spontaneous Respiratory Depth Normal Normal Respiratory Pattern Blood Pressure Blood Pressure [Right Arm] 136/56 L 136/56 L Blood Pressure Mean Blood Pressure Mean [Right Arm] 82 82 Pulse Oximetry 96 Pulse Oximetry [Middle Finger] 96 Oxygen Delivery Method Room Air Oxygen Delivery Method [Middle Finger] Room Air General: Well-developed, well-nourished, middle-aged white female, who looks older than her stated age. Obese. Laying on the bed. Alert and oriented. Skin: Warm and dry with fair turgor. No rashes or lesions. No ecchymosis or erythema. The patient is not diaphoretic. No abrasions. HEENT: Normocephalic atraumatic. Eyes PERRLA, EOMI. No conjunctiva or scleral injection. Nares patent bilaterally without turbinate enlargement. No significant drainage. No epistaxis. Oropharynx without erythema or exudate. Uvula midline, oral mucosa moist. No lesions present. Fair dentition. Heart: Heart bradycardic with slightly irregular rhythm. 2/6 murmur. No gallops or rubs. Peripheral pulses are 2+. Lungs: Lungs are clear to auscultation. No crackles rhonchi or wheezing. Good air movement. The patient is able to take a deep breath. Abdomen: Abdomen was inspected, auscultated, and palpated. Obese. Bowel sounds present x 4. Soft, nontender to palpation. No hepato-splenomegaly. No masses noted. No rebound. No CVA tenderness. Musculoskeletal: Gross motor function of the upper and lower extremities is intact and unremarkable. Neurologic: Gross sensation is intact across the upper and lower extremities by soft touch. Course Administered Medications Discontinued Medications Sodium Chloride (Nss 1000ml) 1,000 mls @ 125 mls/hr IV .Q8H PAULA Stop: 08/04/18 12:44 Last Infusion: 07/05/18 17:11 Dose: Admin: 07/05/18 12:52 Dose: 125 mls/hr Insulin Human Regular 8 units/ (Syringe) 8 mls @ 30 mls/min IV TODAY@1630 ONE Stop: 07/05/18 16:31 Last Admin: 07/05/18 16:36 Dose: Not Given Insulin Human Regular (Novolin R U-100 Per Unit) Confirm Administered Dose 8 units .ROUTE .STK-MED ONE Stop: 07/05/18 16:23 Last Admin: 07/05/18 16:25 Dose: 8 units Medical Decision Making Differential Diagnosis Hypotension, bradycardia, hypoglycemia, were considered among others Medical Records Attestation: I reviewed the patient's medical records. Home Medications Current Medication List: was personally reviewed by me Laboratory Data Attestation: I reviewed the patient's lab results. CBC, chemistry panel, CK/CK-MB, and troponin were obtained. Normal white count , mild anemia with an H&H of 10.4 and 32.4. Renal insufficiency is noted with BUN of 47 and creatinine 1.86. Potassium elevated at 5.6. Glucose elevated at 315. Normal bilirubin. Mildly elevated AST at 43, mildly elevated ALT at 92. Normal CK/CK-MB, and troponin. Result diagrams: 07/05/18 13:08 07/05/18 13:08 Lab Results 07/05/18 07/05/18 Range/Units 13:08 13:08 WBC 8.32 (4.8-10.8) K/uL RBC 3.46 L (4.2-5.4) M/uL Hgb 10.4 L (12.0-16.0) g/dL Hct 32.4 L (37-47) % MCV 93.6 (80-100) fL MCH 30.1 (25-34) pg MCHC 32.1 (32-36) g/dL RDW Std Deviation 45.2 (36.4-46.3) fL RDW Coeff of Leatha 13.2 (11.5-14.5) % Plt Count 188 (130-400) K/uL MPV 10.6 H (7.4-10.4) fL Immature Gran % (Auto) 0.1 % Neut % (Auto) 60.5 % Lymph % (Auto) 30.4 % [facility] % (Auto) 7.5 % Eos % (Auto) 1.1 % Baso % (Auto) 0.4 % Immature Gran # (Auto) 0.01 (0.00-0.02) K/uL Neut # (Auto) 5.04 (1.4-6.5) K/uL Lymph # (Auto) 2.53 (1.2-3.4) K/uL [facility] # (Auto) 0.62 H (0.11-0.59) K/uL Eos # (Auto) 0.09 (0-0.5) K/uL Baso # (Auto) 0.03 (0-0.2) K/uL Sodium 137 (136-145) mmol/L Potassium 5.6 H (3.5-5.1) mmol/L Chloride 105 (98-107) mmol/L Carbon Dioxide 27 (21-32) mmol/L Anion Gap 5.0 (3-11) BUN 47 H (7-18) mg/dl Creatinine 1.86 H (0.6-1.2) mg/dl Est Cr Clr Drug Dosing 40.8 ml/min Est GFR ( Amer) 33.7 Est GFR (Non-Af Amer) 29.1 BUN/Creatinine Ratio 25.5 H (10-20) Glucose 315 H (70-99) mg/dl Calcium 9.0 (8.5-10.1) mg/dl Total Bilirubin 0.2 (0.1-1) mg/dl Direct Bilirubin < 0.1 (0-0.2) mg/dl AST 43 H (15-37) U/L ALT 92 H (12-78) U/L Alkaline Phosphatase 103 (45-117) U/L Total Creatine Kinase 160 (26-192) U/L CK-MB (CK-2) 1.7 (0.5-3.6) ng/ml CK/CKMB % Calc 1.1 (0-3.0) Troponin I < 0.015 (0-0.045) ng/ml Total Protein 6.9 (6.4-8.2) gm/dl Albumin 3.3 L (3.4-5.0) gm/dl Globulin 3.6 (2.5-4.0) gm/dl Albumin/Globulin Ratio 0.9 (0.9-2) Beta-Hydroxybutyric Acd 1.24 (0.2-2.81) mg/dl Blood Pressure Blood Pressure Disposition: elevated BP felt to be situational MDM Narrative Patient was evaluated in B3. IV was established. Labs were obtained. She was hydrated gently with 1 L normal sterile saline at 125 mL/h. EKG obtained today shows a sinus bradycardia with a rate of 50. First-degree AV block with PACs in [facility]. This was reviewed with Dr. Turcios. Due to the long-acting nature of the medications that she took mistakenly, I did recommend that she consider overnight evaluation for her bradycardia. She was reassured that I find no evidence of cardiac injury at this time. She is agreeable. [facility] Please see that dictation for final management. Care plan was discussed with Dr. Turcios. Impression & Plan Drug ingestion, accidental, Bradycardia Admission Discharge Plan Visit Data *Final* Discharge Date/Time: 07/05/18 16:44 Chief Complaint: Overdose (Accidental) Stated Complaint: weakness/bradycardia ED Provider: Marsha Turcios ED Midlevel Provider: Jorden Greenberg Discharge Problem: Drug ingestion, accidental, Bradycardia Patient Disposition: Admitted As Inpatient Discharge Instructions Interventions: ED Discharge Assessment Last Done: 07/05/18 16:44
[2018-07-05] MEDS: HydrALAZINE TAB 50 MG TAB PO SCH (19:41)
[2018-07-05] MEDS: GABAPENTIN 600 MG TAB PO SCH (19:41)
[2018-07-05] MEDS: INSULIN ASPART 100 UNITS/ML 3 ML PEN SC SCH ×2 (19:42→21:39)
[2018-07-05] MEDS: INSULIN GLARGINE SOLOSTAR 100 UNITS/ML 3 ML PEN SC SCH (19:43)
[2018-07-05 20:51] LABS: BUN Creatinine Ratio 21.2 (10-20); Blood Urea Nitrogen 44 mg/dl (7-18); Calcium 8.6 mg/dl (8.5-10.1); Carbon Dioxide 24 mmol/L (21-32); Chloride 108 mmol/L (98-107); Creatinine Clr Calc Pharmacy 36.8 ml/min; Est GFR (African American) 29.8; Est GFR (Non-African American) 25.7; Glucose 192 mg/dl (70-99); Potassium 4.7 mmol/L (3.5-5.1); Sodium 138 mmol/L (136-145); Troponin I < 0.015 ng/ml (0-0.045)
[2018-07-05 21:53] LABS: INR 1.1 (0.9-1.1); Prothrombin Time 10.8 Seconds (9.0-12.0)
[2018-07-06] MEDS: LEVOTHYROXINE SODIUM 100 MCG TABLET PO SCH (05:44)
[2018-07-06 06:05] LABS: Hematocrit (blood only) 31.7 % (37-47); Hemoglobin 10.2 g/dL (12.0-16.0); Mean Corpuscular Hgb Conc 32.2 g/dL (32-36); Mean Corpuscular Volume 93.8 fL (80-100); Mean Platelet Volume 10.5 fL (7.4-10.4); Platelet Count 183 K/uL (130-400); RDW Coefficient of Variation 13.6 % (11.5-14.5); RDW Standard Deviation 46.5 fL (36.4-46.3); Red Blood Count 3.38 M/uL (4.2-5.4); White Blood Count 7.87 K/uL (4.8-10.8)
[2018-07-06 06:25] LABS: INR 1.1 (0.9-1.1); Partial Thromboplastin Time 26.4 Seconds (21.0-31.0); Prothrombin Time 11.2 Seconds (9.0-12.0)
[2018-07-06 06:32] LABS: BUN Creatinine Ratio 28.1 (10-20); Calcium 8.6 mg/dl (8.5-10.1); Creatinine Clr Calc Pharmacy 48.8 ml/min; Est GFR (African American) 43.4; Est GFR (Non-African American) 37.4; Potassium 4.6 mmol/L (3.5-5.1)
[2018-07-06] MEDS ORDERED: CARVEDILOL 6.25 MG TAB PO SCH (09:00)
[2018-07-06] MEDS: HydrALAZINE TAB 50 MG TAB PO SCH ×3 (09:03→19:57)
[2018-07-06] MEDS: BuPROPion SR 100 MG TABCR PO SCH (09:03)
[2018-07-06] MEDS: PANTOprazole 40 MG TAB PO SCH (09:03)
[2018-07-06] MEDS: GABAPENTIN 600 MG TAB PO SCH ×3 (09:04→19:57)
[2018-07-06] MEDS: CITALOPRAM 40 MG TAB PO SCH (09:04)
[2018-07-06] MEDS: INSULIN ASPART 100 UNITS/ML 3 ML PEN SC SCH ×4 (09:05→21:14)
[2018-07-06] MEDS: INSULIN GLARGINE SOLOSTAR 100 UNITS/ML 3 ML PEN SC SCH ×2 (09:06→21:26)
[2018-07-06] MEDS: FUROSEMIDE 20 MG TAB PO SCH (12:39)
[2018-07-06] MEDS: HEPARIN SOD 5,000 UNIT/0.5 ML VIAL SQ SCH ×2 (12:40→19:58)
--- NOTE | 2018-07-06 12:45 | Hospitalist Progress Note ---
Date of Service July 06, 2018 Assessment & Plan (1) Bradycardia: (2) Drug ingestion, accidental: This is a 57-year-old female with a PMH of chronic diastolic heart failure , DM II, HTN, HLD, CKD 3 and other medical problems listed below who presents with dizziness, jaw pain and generalized weakness that occurred a few hours ago after acidentally ingesting her 's medication. -on 07/06/18 prior to hospital presentation, patient accidentally took her 's morning medications today which included the following: Atenolol 100 mg, olmesartan 5 mg, hydrochlorothiazide 12.5 mg, Plavix 75 mg and a calcium supplement 625 mg -troponins negative x 2 and no chest pain although she did reported jaw pain which appears to have resolved, initial symptoms of dizziness have resolved -patient known to have bradycardia on carvedilol; bradycardia has improved and after overnight telemetry monitoring the heart rate at times have been persistently in the 40s. -already received day time dose of home dose carvedilol on 07/06/18. will hold off further carvedilol 6.25 mg BID at this time and have discussed with patient about keeping her in the hospital to see if at least her heart rate trending consistently in the 50s or somewhat higher -hospitalist also called patient's usual outpatient vice president marketing & development Dr. Stevenson about her health situation and will place inpatient cardiology consult for further recommendations of patient's bradycardia management (3) Jaw pain: troponins negative x 2 jaw pain appears to have resolved without acute interventins (4) Diabetes mellitus, type II: BSG elevated at 315 upon arrival in setting of inadequate corrective insulin prior to hospital presentation -Recent Hba1c of 7.6 in May 2018 -glucose better controlled on 07/06/18 and continue home dose Lantus 25 units BID -continue currently sliding scale insulin protocol based on fingertstick glucose (5) CKD (chronic kidney disease), stage III: Cr slightly elevated from baseline at 1.86 on admission after IV fluids, the creatinine downtrended towards baseline with creatinine 1.51 on 07/06/18 hold off further IV fluids for now, patient eating. encourage ambulation off IV fluids Initial admission hyperkalemia of 5.6 have resolved after IV fluids current serum potassium 4.6 (6) Diastolic heart failure: Euvolemic on exam -given recent acute kidney injury, will cut back from 40 mg daily Lasix to 20 mg daily Lasix for now -hold off further carvedilol given bradycardia (7) HTN (hypertension): Hold off further carvedilol because of bradycardia Reduced Lasix from 40 mg daily to 20 mg daily because of recent acute kidney injury continue hydralazine (8) HLD (hyperlipidemia): Continue atorvastatin (9) MDD (major depressive disorder): Continue Wellbutrin, Celexa (10) GERD (gastroesophageal reflux disease): Continue PPI DVT Ppx: SQ heparin Code status: FULL Subjective Patient denies acute pain. denies shortness of breath. denies palpitations or lightheadedness. denies abdominal pain. denies facial pain. reports being ambulatory when off IV fluids. However when at rest heart rate has been in the 40s. Patient asymptomatic with the bradycardia. Have reviewed patient's home medications including that she is on carvedilol BID. Home medication dosage given already. Have discussed with patient that perhaps she needs less medication that can slow down the heart rate and will hold further dose of carvedilol. patient agreeable to stay for further cardiac monitoring Physical Exam 2 Vital Signs (Past 24 Hours): Last Vital Signs Temp 36.8 C 07/06/18 11:30 Pulse 48 L 07/06/18 11:30 Resp 18 07/06/18 11:30 BP 144/73 H 07/06/18 11:30 Pulse Ox 96 07/06/18 11:30 Constitutional: WD/WN, vitals as above Eyes: PERRL, conjunctivae normal, anicteric sclerae EOM intact bilaterally ENMT: external ear and nose normal, oropharynx normal Neck: trachea midline, no thyromegaly Respiratory: normal respiratory effort, lungs clear to auscultation Cardiovascular: RRR, no murmur, no edema Gastrointestinal (Abdomen): normal bowel sounds, soft, nontender, no hepatosplenomegaly Musculoskeletal: no cyanosis or clubbing, extremities motor strength 5/5 Head/Neck/Chest: normocephalic and head atraumatic Neurologic: PERRL, EOMI, accommodation nl, no face palsy, no dysarthria CN' s II-XI intact bilaterally Psychiatric: A+Ox3, euthymic affect _ (1) Drug ingestion, accidental Encounter type: initial encounter Qualified Code(s): T50.901A - Poisoning by unspecified drugs, medicaments and biological substances, accidental ( unintentional), initial encounter
--- NOTE | 2018-07-06 13:51 | Cardiology Consultation ---
Date of Consultation July 06, 2018 Assessment & Plan (1) Sinus bradycardia: (2) First degree AV block: As noted above the patient has a long-standing history of difficult to control hypertension and sinus rhythm with first-degree AV block. When I had seen her in the office in May,, she described recent dizziness, and she was found to have sinus bradycardia with first-degree AV block in the range of 50 bpm. Her carvedilol dose was therefore reduced from 12.5 mg twice daily to 6.25 mg twice daily. She has overall been feeling well prior to her recent presentation after accidentally ingesting her 's medications that include atenolol. Several episodes of the cardia down to the 30 bpm range were noted with morning this morning telemetry that correlated with when she was napping per her report as well as the recollection of her nurse. Currently, sinus rhythm in the 60 bpm range noted that she is feeling well sitting up in bed. At present, I think we should continue to hold her carvedilol. Continue observation overnight. Tomorrow we will likely resume the carvedilol at a lower dose 3.125 mg twice daily. If blood pressure is elevated after resuming carvedilol, options include titrating up her hydralazine, perhaps to a 3 times daily regimen. She had been on amlodipine in the past from 2009 until 2012 with amlodipine dose having been titrated from 5 mg to 10 mg. I would speculate that perhaps this was discontinued due to concerns about fluid retention. She is not on CHIDI inhibitor or angiotensin receptor griselda due to past history of hyperkalemia. We will continue to monitor the patient off beta-griselda therapy. History of Present Illness Attending Physician: Abdiel Villarreal MD History of Present Illness Candi Finley is a 57-year-old female seen in cardiology consultation per the request of Dr. Villarreal for the evaluaiton of sinus bradycardia. Patient was admitted via the emergency room yesterday after presenting with generalized weakness dizziness having accidentally taken her 's morning medications that included atenolol 100 mg olmesartan 5 mg hydrochlorothiazide 12.5 mg and clopidogrel 75 mg. Patient apparently also took a calcium supplement. Patient then took her own medications and went to nondenominational and then started feeling dizzy and disoriented during a [employer] republican. She presented to the emergency department and initial blood work performed yesterday at 1308 included a high potassium level 5.6 which is since improved to 4.6 mmol/L. Acute renal insufficiency was noted with creatinine of 2.06 yesterday improved to 1.51 today. Troponin has been negative x2. The patient is known to the undersigned with most recent outpatient visit having been performed on 06/09/18. She has a history of difficult to control hypertension, and chronic diastolic dysfunction. Home blood pressure medications include furosemide 40 mg daily, carvedilol 12.5 mg 2 times per day, he had hydralazine 100 mg twice daily. She also takes atorvastatin for dyslipidemia in addition to her levothyroxine diabetes medications. Vital signs during her 2018 visit she described feeling well included a blood pressure 138/64 and EKG performed at that time sinus bradycardia with sinus arrhythmia and first-degree AV block at 50 bpm. She also has a history of premature atrial complexes. Due to past complaint of chest discomfort with abnormal nuclear stress testing she underwent cardiac catheterization at [facility] on 04/13/13 with findings of angiographically normal coronary arteries. Allergies Allergy/AdvReac Type Severity Reaction Status Date / Time CHIDI Inhibitors AdvReac Mild COUGH Verified 07/05/18 12:33 Home Medications Home Medications Medication Instructions Recorded Confirmed Type atorvastatin 40 mg PO DAILY 07/05/18 07/05/18 History bupropion HCl [Wellbutrin SR] 200 mg PO DAILY 07/05/18 07/05/18 History carvedilol 6.25 mg PO BID 07/05/18 07/05/18 History citalopram 40 mg PO DAILY 07/05/18 07/05/18 History furosemide 40 mg PO DAILY 07/05/18 07/05/18 History gabapentin 600 mg PO TID 07/05/18 07/05/18 History hydralazine 50 mg PO TID 07/05/18 07/05/18 History insulin glargine [Lantus U-100 25 unit SUBCUT BID 07/05/18 07/05/18 History Insulin] insulin lispro [Humalog U-100 1 sliding scale dose SUBCUT UD 07/05/18 07/05/18 History Insulin] levothyroxine [Synthroid] 100 mcg PO DAILY 07/05/18 07/05/18 History multivitamin 1 tab PO DAILY 07/05/18 07/05/18 History [id number] oil [Avery-3 1 cap PO DAILY 07/05/18 07/05/18 History Fish Oil] pantoprazole 40 mg PO DAILY 07/05/18 07/05/18 History Patient History Medical History MINISTERIO on CPAP (Chronic) CKD (chronic kidney disease), stage III (Chronic) MDD (major depressive disorder) (Chronic) HLD (hyperlipidemia) (Chronic) HTN (hypertension) (Chronic) Diabetes mellitus, type II (Chronic) Diastolic heart failure (Chronic) Endometrial carcinoma (Resolved 02/23/13) "S/P hysterectomy " History of melanoma (Resolved) Difficult airway for intubation (Resolved) Surgical History S/P knee surgery (Chronic) H/O esophagogastroduodenoscopy (Chronic) History of cholecystectomy (Resolved) Hx of cardiac cath (Resolved) "2012, negative for CAD " Family History Other Colonic polyp GERD (gastroesophageal reflux disease) Social History Current Living Situation: Spouse Feels Safe at Home: Yes Safety Concerns: Feels Safe At This Time Smoking Status: Never smoker Do You Dip or Chew Tobacco: No Second Hand Exposure: No Tobacco Cessation Education Requested by Patient: No Hx Alcohol Use: No Beliefs That Will Affect Care: None Preferred Language: Turkish Communication Ability: Effective Button Sewer Hand Required: No Review of Systems 10 point review of systems is performed and is negative with the exception of that above. Physical Exam 2 Vital Signs (Past 24 Hours): Last Vital Signs Temp 36.8 C 07/06/18 11:30 Pulse 48 L 07/06/18 11:30 Resp 18 07/06/18 11:30 BP 144/73 H 07/06/18 11:30 Pulse Ox 96 07/06/18 11:30 Results & Data Diagnostic Findings EKG performed 07/05/18 at 12:05 PM: Sinus bradycardia at 50 bpm with first- degree AV block, FL interval 266 ms, several premature atrial complexes were noted. Repeat EKG this morning 07/06/18 at 6:27 AM revealed sinus bradycardia at 48 bpm with long first-degree AV block, FL interval 328 ms.
[2018-07-07] MEDS: LEVOTHYROXINE SODIUM 100 MCG TABLET PO SCH (05:57)
[2018-07-07] MEDS: INSULIN ASPART 100 UNITS/ML 3 ML PEN SC SCH ×2 (07:56→12:13)
[2018-07-07] MEDS: CITALOPRAM 40 MG TAB PO SCH (09:31)
[2018-07-07] MEDS: FUROSEMIDE 20 MG TAB PO SCH (09:31)
[2018-07-07] MEDS: HydrALAZINE TAB 50 MG TAB PO SCH (09:31)
[2018-07-07] MEDS: GABAPENTIN 600 MG TAB PO SCH (09:31)
[2018-07-07] MEDS: INSULIN GLARGINE SOLOSTAR 100 UNITS/ML 3 ML PEN SC SCH (09:31)
[2018-07-07] MEDS: PANTOprazole 40 MG TAB PO SCH (09:31)
[2018-07-07] MEDS: BuPROPion SR 100 MG TABCR PO SCH (09:32)
[2018-07-07] MEDS: HEPARIN SOD 5,000 UNIT/0.5 ML VIAL SQ SCH (09:50)
--- NOTE | 2018-07-07 11:10 | Cardiology Progress Note ---
Date of Service July 07, 2018 Assessment & Plan (1) Sinus bradycardia: (2) First degree AV block: (3) HTN (hypertension): (4) Diastolic heart failure: (5) CKD (chronic kidney disease), stage III: Patient with interval improvement. And recent outpatient follow-up, her carvedilol dose had been reduced from 12.5 mg twice daily to 6.25 mg twice daily due to Findings of sinus bradycardia and lightheadedness. She presented with Worsening lightheadedness, findings of worsening bradycardia after having taken her 's atenolol 100 mg in addition to her medication Accidentally. Her blood pressure is well controlled now, With most recent measurements of 124/ 73, 114/72, and 124/49. Her beta-griselda has been on hold completely. Her home furosemide dose of 40 mg daily has been administered at a lower dose of 20 mg daily and her acute renal insufficiency has improved and she is now back to her baseline stage III chronic kidney disease. Patient is stable for discharge from a cardiac perspective. At this time, I think it is prudent to completely discontinue her beta-griselda. She has a history of diastolic heart failure related to hypertension not systolic heart failure, she does not have a history of atrial arrhythmias. Options for blood pressure medications are somewhat limited. Amlodipine was discontinued several years ago, likely due to edema and fluid retention. She is not on an CHIDI inhibitor or angiotensin receptor griselda due to past hyperkalemia, and I think this also excludes potassium sparing diuretics from use. Agree with increasing her hydralazine which she had been taking on a 2 time per day basis to 50 mg 3 times daily at discharge. I would recommend ongoing diuretic therapy, but I think we should alternate furosemide 20 mg daily with 40 mg daily to avoid future volume depletion. If blood pressure is found to be above goal in the future, consider increasing her hydralazine or adding alpha griselda, doxazosin. Subjective CC: Lightheadedness, dizziness Subjective: Patient states that she feels well this morning. She was recently walking in the hallway of the unit and felt well without any lightheadedness or dizziness. She did note that last evening she had transient dizziness. Telemetry reveals stable sinus bradycardia in the range of 50-55 bpm with first- degree AV block. Physical Exam 2 Vital Signs (Past 24 Hours): Last Vital Signs Temp 36.5 C 07/07/18 06:56 Pulse 52 L 07/07/18 06:56 Resp 16 07/07/18 06:56 BP 124/49 L 07/07/18 06:56 Pulse Ox 98 07/07/18 06:56 Physical Exam: General: no acute distress and stated age Eyes: conjunctiva are pink and non-injected, sclera clear Neck: normal jugular venous pulse, no hepatojugular reflux Chest: normal shape and normal respiratory effort Lungs: clear to auscultation and percussion Cardiac Exam: - regular heart sounds, no murmurs, rubs, or gallops, no jugular venous distention Abdomen: abdomen soft, non-tender, no abnormal masses and no hepatosplenomegaly Musculoskeletal: no gait disturbance, no weakness Extremities: no edema and no cyanosis Neuro:awake, coversant, follows commands, no focal motor deficits Psych: appropriate affect and insight.
--- NOTE | 2018-07-07 13:34 | Hospitalist Progress Note ---
Date of Service July 07, 2018 Assessment & Plan (1) Bradycardia: (2) Drug ingestion, accidental: This is a 57-year-old female with a PMH of chronic diastolic heart failure , DM II, HTN, HLD, CKD 3 and other medical problems listed below who presents with dizziness, jaw pain and generalized weakness that occurred a few hours ago after acidentally ingesting her 's medication. -on 07/06/18 prior to hospital presentation, patient accidentally took her 's morning medications today which included the following: Atenolol 100 mg, olmesartan 5 mg, hydrochlorothiazide 12.5 mg, Plavix 75 mg and a calcium supplement 625 mg -troponins negative x 2 and no chest pain although she did reported jaw pain which appears to have resolved, initial symptoms of dizziness have resolved 07/06/18 patient known to have bradycardia on carvedilol; bradycardia has improved and after overnight telemetry monitoring the heart rate at times have been persistently in the 40s. already received day time dose of home dose carvedilol on 07/06/18. held off further carvedilol dosage 07/07/18 heart rate more persistently in the 50s cardiology service Dr. 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 use of insulin BSG elevated at 315 upon arrival in setting of inadequate corrective insulin prior to hospital presentation -Recent Hba1c of 7.6 in May 2018 -glucose better controlled on 07/06/18 and on and continue home dose Lantus 25 units BID (5) CKD (chronic kidney disease), stage III: Cr slightly elevated from baseline at 1.86 on admission after IV fluids, the creatinine downtrended towards baseline with creatinine 1.51 on 07/06/18 Initial admission hyperkalemia of 5.6 have resolved after IV fluids serum potassium normalized and 4.6 on 07/06/18 (6) Diastolic heart failure: Euvolemic on exam -given recent acute kidney injury, was cut back from 40 mg daily Lasix to 20 mg daily Lasix -patient recommended to take Lasix (Furosemide) 20 mg daily every Friday/ Friday/Friday, take Lasix 40 mg daily on other days of the week as outpatient -hold off further carvedilol given bradycardia (7) HTN (hypertension): Hold off further carvedilol because of bradycardia Reduced Lasix from 40 mg daily to 20 mg daily because of recent acute kidney injury continue hydralazine (8) HLD (hyperlipidemia): Continue atorvastatin (9) MDD (major depressive disorder): Continue Wellbutrin, Celexa (10) GERD (gastroesophageal reflux disease): Continue PPI DVT Ppx: SQ heparin whil inpatient Code status: FULL Discharge Diagnosis Accidental overdose initial encounter, bradycardia, type 2 diabetes mellitus with unspecified complications (initial hyperglycemia), long-term current use of insulin Discharge Instructions stop taking carvedilol and home take Lasix (Furosemide) 20 mg daily every Friday/Friday/Friday, take Lasix 40 mg daily on other days of the week take hydralazine 50 mg three times a day every day continue other home medications 07/08/2018 12:00 PM Viky Og RDN Department Nutrition & Weight Management, [facility] 07/09/2018 10:20 AM Luis Fernando Rojas MD Department [facility] 07/17/2018 9:30 AM [facility] Department Pharmacy, [place] 07/17/2018 10:40 AM Luis Fernando Rojas MD Department [facility] 07/20/2018 3:00 PM Luis Fernando Erickson PA-C Cardiology, [facility] Subjective Patient denies acute pain. denies shortness of breath. denies palpitations or lightheadedness. denies abdominal pain. denies facial pain. Patient's heart rate more consistently in the 50s today compared to yesterday Constitutional: + weakness; no fever, no chills and no sweats Ear, Nose, Mouth, Throat: + dizziness; no nasal congestion and no sore throat Neurologic: + generalized weakness; no gait abnormality, no localized weakness, no tingling, no numbness and no paresthesia Physical Exam 2 Vital Signs (Past 24 Hours): Last Vital Signs Temp 36.5 C 07/07/18 06:56 Pulse 52 L 07/07/18 06:56 Resp 16 07/07/18 06:56 BP 124/49 L 07/07/18 06:56 Pulse Ox 98 07/07/18 06:56 Constitutional: WD/WN, vitals as above Eyes: PERRL, conjunctivae normal, anicteric sclerae EOM intact bilaterally ENMT: external ear and nose normal, oropharynx normal Neck: trachea midline, no thyromegaly Respiratory: normal respiratory effort, lungs clear to auscultation Cardiovascular: Rate/Rhythm: regular rhythm and + bradycardic Gastrointestinal (Abdomen): normal bowel sounds, soft, nontender, no hepatosplenomegaly Musculoskeletal: no cyanosis or clubbing, extremities motor strength 5/5 Head/Neck/Chest: normocephalic and head atraumatic Neurologic: PERRL, EOMI, accommodation nl, no face palsy, no dysarthria CN' s II-XI intact bilaterally Psychiatric: A+Ox3, euthymic affect _ (1) Drug ingestion, accidental Encounter type: initial encounter Qualified Code(s): T50.901A - Poisoning by unspecified drugs, medicaments and biological substances, accidental ( unintentional), initial encounter
--- NOTE | 2018-07-07 13:50 | Discharge Summary ---
Date of Service July 07, 2018 Admission HPI Per Admitting Provider This is a 57-year-old female with a PMH of chronic diastolic heart failure, DM II, HTN, HLD, CKD 3 and other medical problems listed below who presents with dizziness, jaw pain and generalized weakness starting a few hours ago. Patient accidentally took her 's morning medications today which included the following: Atenolol 100 mg, olmesartan 5 mg, hydrochlorothiazide 12.5 mg, Plavix 75 mg and a calcium supplement 625 mg. Patient then took her own morning medications as well. Went to [employer] and felt fine until the [employer] green party, when she felt dizzy and disoriented, with bilateral jaw pain and generalized weakness. Checked her heart rate on smart watch and saw that it was 40 bpm (baseline HR ~55). Was helped to the ground and given some orange juice, with improvement of symptoms. Was then brought to the ED by EMS for further evaluation. Patient is A&Ox4 with mildly elevated blood pressure and a heart rate close to baseline at 55 bpm. No leukocytosis. Hemoglobin close to baseline at 10.4. Hyperkalemic at 5.6, with slightly elevated creatinine of 1.86 (baseline Cr ~1.5 ) and elevated blood sugar of 315. States that she took her normal 25 units of Lantus this morning but ate a lot of carbohydrate rich foods at the green party and was then given orange juice prior to arrival. Currently endorsing generalized weakness and bilateral jaw pain. Denies any lightheadedness, dizziness, confusion, chest pain, palpitations, shortness of breath, abdominal pain, nausea , vomiting, dysuria, hematuria, hematochezia or melena. Admission Exam Per Admitting Provider General Appearance: WD/WN, no apparent distress. + obese. Resting comfortably Head: normocephalic, atraumatic Eyes: normal inspection, PERRL, EOMI ENT: hearing grossly normal, pharynx normal (moist mucous membranes) Neck: supple, no JVD, no adenopathy Respiratory/Chest: lungs clear to auscultation. No wheezes, rales or rhonci. No respiratory distress or accessory muscle use Cardiovascular: bradycardia, regular rhythm, no murmur appreciated, normal peripheral pulses Abdomen/GI: normal bowel sounds, soft, non-tender to palpation Extremities/Musculoskelatal: normal inspection, no calf tenderness, normal capillary refill, trace pedal edema Neurologic/Psych: alert, normal mood/affect, oriented x 3 Skin: normal color, warm/dry Principal Diagnosis Accidental overdose initial encounter, bradycardia, type 2 diabetes mellitus with unspecified complications (initial hyperglycemia), [employer] current use of insulin Discharge Exam Constitutional WD/WN, vitals as above Eyes PERRL, conjunctivae normal, anicteric sclerae EOM intact bilaterally ENMT external ear and nose normal, oropharynx normal Neck trachea midline, no thyromegaly Respiratory normal respiratory effort, lungs clear to auscultation Cardiovascular RRR, no murmur, no edema Rate/Rhythm: regular rhythm and + bradycardic Gastrointestinal (Abdomen) normal bowel sounds, soft, nontender, no hepatosplenomegaly Musculoskeletal no cyanosis or clubbing, extremities motor strength 5/5 Head/Neck/Chest: normocephalic and head atraumatic Neurologic PERRL, EOMI, accommodation nl, no face palsy, no dysarthria CN's II-XI intact bilaterally Psychiatric A+Ox3, euthymic affect Discharge Data Allergies Allergy/AdvReac Type Severity Reaction Status Date / Time CHIDI Inhibitors AdvReac Mild COUGH Verified 07/05/18 12:33 Consultations 07/05/18 15:06 ED Decision to Admit Stat 07/06/18 13:10 Consult Cardiology Routine Hospital Course (1) Bradycardia: (2) Drug ingestion, accidental: This is a 57-year-old female with a PMH of chronic diastolic heart failure , DM II, HTN, HLD, CKD 3 and other medical problems listed below who presents with dizziness, jaw pain and generalized weakness that occurred a few hours ago after acidentally ingesting her 's medication. -on 07/06/18 prior to hospital presentation, patient accidentally took her 's morning medications today which included the following: Atenolol 100 mg, olmesartan 5 mg, hydrochlorothiazide 12.5 mg, Plavix 75 mg and a calcium supplement 625 mg -troponins negative x 2 and no chest pain although she did reported jaw pain which appears to have resolved, initial symptoms of dizziness have resolved 07/06/18 patient known to have bradycardia on carvedilol; bradycardia has improved and after overnight telemetry monitoring the heart rate at times have been persistently in the 40s. already received day time dose of home dose carvedilol on 07/06/18. held off further carvedilol dosage 07/07/18 heart rate more persistently in the 50s cardiology service Dr. Stevenson recommends discharge medication regimen to discontinue carvedilol completely, alternate the dosage of Lasix daily between 20 to 40 mg Lasix every day, and continue hydralazine 50 mg TID and continue other home medications (3) Jaw pain: troponins negative x 2 jaw pain appears to have resolved without acute interventions (4) Diabetes mellitus, type II: type 2 diabetes mellitus with unspecified complications (initial hyperglycemia), prison current use of insulin BSG elevated at 315 upon arrival in setting of inadequate corrective insulin prior to hospital presentation -Recent Hba1c of 7.6 in May 2018 -glucose better controlled on 07/06/18 and on and continue home dose Lantus 25 units BID (5) CKD (chronic kidney disease), stage III: Cr slightly elevated from baseline at 1.86 on admission after IV fluids, the creatinine downtrended towards baseline with creatinine 1.51 on 07/06/18 Initial admission hyperkalemia of 5.6 have resolved after IV fluids serum potassium normalized and 4.6 on 07/06/18 (6) Diastolic heart failure: Euvolemic on exam -given recent acute kidney injury, was cut back from 40 mg daily Lasix to 20 mg daily Lasix -patient recommended to take Lasix (Furosemide) 20 mg daily every Friday/ Friday/Friday, take Lasix 40 mg daily on other days of the week as outpatient -hold off further carvedilol given bradycardia (7) HTN (hypertension): Hold off further carvedilol because of bradycardia Reduced Lasix from 40 mg daily to 20 mg daily because of recent acute kidney injury continue hydralazine (8) HLD (hyperlipidemia): Continue atorvastatin (9) MDD (major depressive disorder): Continue Wellbutrin, Celexa (10) GERD (gastroesophageal reflux disease): Continue PPI DVT Ppx: SQ heparin whil inpatient Code status: FULL Discharge Diagnosis Accidental overdose initial encounter, bradycardia, type 2 diabetes mellitus with unspecified complications (initial hyperglycemia), prison current use of insulin Discharge Instructions stop taking carvedilol and home take Lasix (Furosemide) 20 mg daily every Friday/Friday/Friday, take Lasix 40 mg daily on other days of the week take hydralazine 50 mg three times a day every day continue other home medications 07/08/2018 12:00 PM Viky Og RDN Department Nutrition & Weight Management, [facility] 07/09/2018 10:20 AM Luis Fernando Rojas MD Department [facility] 07/17/2018 9:30 AM [facility] [place] 07/17/2018 10:40 AM Luis Fernando Rojas MD Department [facility] 07/20/2018 3:00 PM Luis Fernando Erickson PA-C Cardiology, [facility] Total Time Total Time Spent Total Time Spent (In Minutes): 40 minutes Total Time Includes: Examination of the Patient, Discharge Planning and Medication Reconciliation Discharge Plan Discharge Items Patient Disposition: Home - Self-Care Reason For Visit: BRADYCARDIA,ACCIDENTAL INGESTION OF MEDICATION Discharge Diagnosis: Accidental overdose initial encounter, bradycardia, type 2 diabetes mellitus with unspecified complications (initial hyperglycemia), [employer] current use of insulin Condition: Good Discharge Goals: Improve disease control Activity: Resume your previous activity Non-emergency contact: Primary Care Provider and Occupational Health Specialist Call non-emergency contact if: you have any medication questions Diet: Carb Consistent or DM2 Addtl Provider Instructions: Discharge Instructions stop taking carvedilol and home take Lasix (Furosemide) 20 mg daily every Friday/Friday/Friday, take Lasix 40 mg daily on other days of the week take hydralazine 50 mg three times a day every day continue other home medications 07/08/2018 12:00 PM Vkiy Og RDN Department Nutrition & Weight Management, [facility] 07/09/2018 10:20 AM Luis Fernando Rojas MD Department [facility] 07/17/2018 9:30 AM [facility] [place] 07/17/2018 10:40 AM Luis Fernando Rojas MD Department [facility] 07/20/2018 3:00 PM Luis Fernando Erickson PA-C Cardiology, [facility] Prescriptions: New furosemide 20 mg Tablet 20 mg PO QAM 30 Days Qty: 60 RF: 0 Continue multivitamin Tablet 1 tab PO DAILY RF: 0 gabapentin 600 mg Tablet 600 mg PO TID RF: 0 insulin glargine [Lantus U-100 Insulin] 100 unit/mL Solution 25 unit SUBCUT BID RF: 0 citalopram 40 mg Tablet 40 mg PO DAILY RF: 0 levothyroxine [Synthroid] 100 mcg Tablet 100 mcg PO DAILY RF: 0 hydralazine 50 mg Tablet 50 mg PO TID RF: 0 insulin lispro [Humalog U-100 Insulin] 100 unit/mL Cartridge 1 sliding scale dose SUBCUT UD RF: 0 [id number] oil [[place]-3 Fish Oil] 300-1,000 mg Capsule 1 cap PO DAILY RF: 0 atorvastatin 40 mg Tablet 40 mg PO DAILY RF: 0 bupropion HCl [Wellbutrin SR] 100 mg Tablet Sustained-Release 12 Hr 200 mg PO DAILY RF: 0 pantoprazole 40 mg Tablet,Delayed Release (Dr/Ec) 40 mg PO DAILY RF: 0 Discontinued furosemide 40 mg Tablet 40 mg PO DAILY RF: 0 carvedilol 6.25 mg Tablet 6.25 mg PO BID RF: 0 Visit Report Forms: [facility] Portal Stand-Alone Forms: [facility] Discharge Orders: Discharge Order (Routine); Ordered 07/07/18 Ordered By: Abdiel Villarreal Admission Data Admit Date/Time: 07/05/18 16:12 Attending Provider: Abdiel Villarreal Admit Provider: Williams Cleveland Primary Care Provider: Luis Fernando Rojas Other Providers: Williams Cleveland ; Ulises Stevenson Service: Telemetry
== END 2018-07-07 14:05 | disposition home or self-care (01) ==
LOC: ED 11:55 → 2S 11:55

== ENCOUNTER 2018-11-17 07:28 | Observation (INO) ==
--- OUTSIDE RECORDS SUMMARY | 2018-11-17 07:31 | External Medical Summary | Continuity of Care Document ---
:1960 Author Name Edgar Aviles, Provider Address Unavailable Unavailable , Care Team Providers Name Role Phone Brice Vanita SINGER Unavailable [email or web address] Connie Lobo Unavailable [email or web address] Josh Aviles Unavailable [email or web address]. Unavailable [email or web address] Shaun RANGEL Unavailable Unavailable Unavailable Unavailable Unavailable Problems Congestive heart failure (CHF) (428.0) (I50.9) Morbid obesity (278.01) (E66.01) Sleep apnea (780.57) (G47.30) Peripheral neuropathy (356.9) (G62.9) Hypertension (401.9) (I10) Hypothyroidism (244.9) (E03.9) Diabetic retinopathy (250.50) (E11.319) Vitamin D deficiency (268.9) (E55.9) Diabetes mellitus (250.00) (E11.9) Allergies and Adverse Reactions CHIDI Inhibitors (Allergy) Medications metFORMIN HCl - 1000 MG Oral Tablet; Take 1 tablet daily Refills: 0 BD Pen Needle Short U/F 31G X 8 MM; Use 3 times daily with H umalog pen Refills: 0 Fish Oil 1000 MG Oral Capsule; TAKE 2 CAPSULE Daily Refills: 0 Calcium 600+D 600-400 MG-UNIT Oral Tablet; Take 1 daily Refills: 0 Multivitamins TABS; Take 1 tablet daily Refills: 0 Aspirin 81 MG TABS; Take 1 tablet daily Refills: 0 Lantus 100 UNIT/ML Subcutaneous Solution ; INJECT SUBCUTANEOUSLY 55 UNITS IN THE MORNING AND 55 UNITS IN THE EVENING LUCRECIA James Start: 14-Nov-2011 Quantity: 100 Refills: 4 Lasix 40 MG Oral Tablet; TAKE 1 TABLET TWICE DAILY. Start: 14-Nov-2011 Refills: 0 Simvastatin 20 MG Oral Tablet; TAKE 1 TABLET DAILY. Start: 14-Nov-2011 Refills: 0 BD Insulin Syringe Ultrafine 31G X 5/16" 1 ML MISC; US E TWICE DAILY LUCRECIA James Start: 06-Apr-2012 Quantity: 180 Refills: 4 Synthroid 100 MCG Oral Tablet; TAKE 1 TABLET DAILY. Refills: 0 Timolol Maleate SOLN Refills: 0 Metrogel GEL Refills: 0 Coreg 12.5 MG Oral Tablet; TAKE 1 TABLET TWICE DAILY. Refills: 0 Apresoline TABS; TAKE 25MG THREE TIMES DAILY Refills: 0 Imdur 60 MG TB24; TAKE 1 TABLET ONCE DAILY. Refills: 0 NovoLOG FlexPen SOPN Refills: 0 [place] Contour Test STRP; Test 4 times daily Stefan Monte Start: 24-Jan-2014 Quantity: 200 Refills: 5 OneTouch Delica Lancets 33G; USE AND DISCARD 1 LANCET 4 TIMES DAILY LUCRECIA James Start: 23-Aug-2013 Quantity: 400 Refills: 4 traMADol HCl - 50 MG Oral Tablet; TAKE 1 TABLET 4 TIMES DAILY NEEDED FOR PAIN. Start: 19-Feb-2013 Quantity: 50 Refills: 0 NovoLOG FlexPen 100 UNIT/ML SOLN; INJECT 70 UNITS SUBCUTANEOUSLY EVERY DAY Brice, LUCRECIA Gardner Start: 21-Jan-2012 Quantity: 75 Refills: 4 Gabapentin CAPS; TAKE 600MG THREE TIMES DAILY Start: 14-Nov-2011 Refills: 0 Cozaar 25 MG Oral Tablet; TAKE 1 TABLET DAILY. Refills: 0 Iron TABS; 60 mg BID Refills: 0 Procedures Procedures not documented Immunizations Pneumococcal polysaccharide vaccine, 23 valent On: 2003 Social History - Smoking Status Never smoker Plan of Treatment Planned Observations Planned Goals not documented Results No Known Results Results not documented
[2018-11-17] MEDS ORDERED: BUPIVACAINE 0.25% 30 ML VIAL ONE (08:09)
[2018-11-17] MEDS ORDERED: BACITRACIN INJ 50,000 UNIT VIAL ONE (08:09)
[2018-11-17] MEDS ORDERED: LIDOCAINE HCL 1% 20 ML VIAL ONE (08:09)
--- NOTE | 2018-11-17 08:46 | History & Physical Bridge Note ---
Date of Service November 17, 2018 History & Physical Bridge Note I have examined the patient, reviewed the History & Physical and in the interval since the performance of the History & Physical I have noted the following changes of clinical significance: no changes noted
--- NOTE | 2018-11-17 08:47 | Pre Anesthesia Assessment ---
Date of Service November 17, 2018 Pre Sedation Assessment Vital Signs Temp Pulse Resp BP Pulse Ox 11/17/18 08:16 37 C 64 18 174/59 H 98 Cardiovascular + bradycardic Respiratory normal respiratory effort, lungs clear to auscultation Pre-Sedation Airway Assessment Smoking Status: Former smoker Hx Sleep Apnea: No Hx Difficult Intubation: No Short, Thick Neck: No Thyromental Distance: < 3.5 Finger Breadths Oral Cavity: + Dental Abnormalities Mallampati Class: II ASA: ASA3 Notes The planned sedation has been discussed with the patient. Informed Consent was obtained. I have identified the patient, determined the appropriateness of sedation and have assessed the patient immediately prior to the procedure. All medicine(s) and interventions are by my order.
[2018-11-17] MEDS ORDERED: CEFAZOLIN 3000MG 72.5 ML IV ONE (08:50)
[2018-11-17] MEDS ORDERED: MIDAZOLAM HCL 5 MG/ML 1 ML VIAL ONE (08:58)
[2018-11-17] MEDS ORDERED: fentaNYL citrate 100 MCG/2 ML VIAL ONE ×2 (08:59→09:31)
[2018-11-17] MEDS ORDERED: SODIUM CHLORIDE 0.9% 1000ML 1,000 ML IV SCH (09:00)
[2018-11-17] MEDS ORDERED: CEFAZOLIN 250 MG/ML 1 GM VIAL ONE (09:01)
[2018-11-17] MEDS ORDERED: MIDAZOLAM HCL 1 MG/ML 2ML VIAL ONE ×2 (09:43→09:59)
--- NOTE | 2018-11-17 10:35 | Operative Report ---
Post Operative Report Pre & Post Diagnosis sss Operation Date: 11/17/18 09:00 <No data on this case meets the specified criteria> Procedure Operation Date: 11/17/18 09:00 Actual Procedures p Pacer with A/V Leads (Dual) - Adrianna Ricci DO Surgeon Adrianna Ricci, DO Installer Technician none Estimated Blood Loss 10 Findings Consistent with Post-Op Diagnosis Specimens none Description of Procedure see official report I attest to the content of the Intraoperative Record and any orders documented therein. Any exceptions are noted below.
--- NOTE | 2018-11-17 10:36 | Post Anesthesia Assessment ---
Date of Service November 17, 2018 Post Sedation Assessment Vital Signs Temp Pulse Resp BP Pulse Ox 11/17/18 08:16 37 C 64 18 174/59 H 98 Recovery Score Activity: Moves 4 extremities Respiration: Deep Breath/Cough Circulation: +/-20% PreAnes Value Consciousness: Fully Awake Oxygen Saturation: > 92% On Room Air Discharge Sedation Level of Care: Fast Track Phase II Post Sedation Plan On clinical assessment, the patient appears to have tolerated the sedation without complications. Patient is recovering as anticipated. Patient will continue to be monitored by nursing and may be discharged when sedation discharge criteria are met per below protocol. Upon Completions of procedure and additional 15 minutes continue every 5 minute vital signs and the P.A.R. score; then discharge to a Phase I or Fast Track to Phase II per the following guidelines: * Discharge Patient to appropriate Phase II area if PAR is 8 or greater or return to pre- procedure baseline. The post - procedure orders will be as directed. * If PAR score is less than 8 or not return to pre-procedure baseline then patient will follow Phase I monitoring till PAR is reached for Phase II. The Phase I may be done in procedure room or may call to secure a Phase I area. * If naloxone or flumazenil are used for reversal, hold in Phase I for continued monitoring from when last reversal dose was given for a minimum of 60 minutes or longer pending the nurse and/or physician discretion of patient condition before discharge to Phase II. Please call the Sedation Physician to re-evaluate and complete post-note for discharge to Phase II area. Do NOT discharge from procedure sedation or Phase 1 until post- sedation evaluation note is complete by procedure /sedation MD Sedation Discharge Instructions to be given to the patient at discharge to home.
--- NOTE | 2018-11-17 10:44 | Discharge Summary ---
Date of Service November 17, 2018 Admission HPI Pt admitted for elective ppm due to symptoms of SSS with OLSON and increased fatigue. Admission Exam Per Admitting Provider aaox3, NAD NC/AT, EOMI Supple No JVD Nrl S1/S2, No murmur, bradycardia CTA b/l no w/r/r soft nt/nd no LE edema b/l skin intact no focal deficits Principal Diagnosis Principal Diagnosis sss s/p dual chamber pacemaker Discharge Exam aaox3, NAD NC/AT, EOMI Supple No JVD Nrl S1/S2, No murmur CTA b/l no w/r/r soft nt/nd no LE edema b/l skin intact no focal deficits left pectoral incision intact, no hematoma mild ecchymosis ENMT Mallampati Class: II Respiratory normal respiratory effort, lungs clear to auscultation Cardiovascular Rate/Rhythm: + bradycardic Discharge Data Allergies Allergy/AdvReac Type Severity Reaction Status Date / Time CHIDI Inhibitors AdvReac Mild COUGH Verified 11/17/18 07:55 Procedures Performed Operation Date: 11/17/18 09:00 Actual Procedures p Pacer with A/V Leads (Dual) - Adrianna Ricci DO Ordered Studies 11/17/18 07:15 EP Lab Images for PACS ONCE Hospital Course (1) SSS (sick sinus syndrome): Total Time Total Time Spent Total Time Spent (In Minutes): 30 Total Time Includes: Examination of the Patient, Discharge Planning, Medication Reconciliation and Other Discharge Plan Discharge Items Patient Disposition: Home - Self-Care Reason For Visit: Sick Sinus Syndrome, DCP Discharge Diagnosis: sss s/p dual chamber pacemaker Condition: Good Discharge Goals: Improve function Activity: As commented below Activity Comment: do not lift the left elbow over the left shoulder for 1 month Lifting: No more than 10 pounds Lifting Comment: do not lift more than 10 pounds with the left arm for 2 weeks Bathing: Keep incision dry Bathing Comment: can shower 11/19; let water run over the incision; do not scrub it Sexual Activity: After two weeks Driving/Machine Use: Resume 1 day after discharge Non-emergency contact: Chief Of Field Operations Call non-emergency contact if: you have any medication questions Follow-up/Referrals: Luis Fernando Rojas MD [Primary Care Provider] - Diet: Heart Healthy Addtl Provider Instructions: if you notice any swelling call my office immediately to be seen device and wound check as scheduled on friday11/27/2018 Prescriptions: Continued multivitamin Tablet 1 tab PO DAILY RF: 0 gabapentin 600 mg Tablet 600 mg PO TID RF: 0 Lantus U-100 Insulin 100 unit/mL Solution 25 unit SUBCUT BID RF: 0 citalopram 40 mg Tablet 40 mg PO DAILY RF: 0 levothyroxine [Synthroid] 100 mcg Tablet 100 mcg PO DAILY RF: 0 hydralazine 50 mg Tablet 50 mg PO TID RF: 0 Humalog U-100 Insulin 100 unit/mL Cartridge 1 sliding scale dose SUBCUT UD RF: 0 atorvastatin 40 mg Tablet 40 mg PO DAILY RF: 0 bupropion HCl [Wellbutrin SR] 100 mg Tablet Sustained-Release 12 Hr 100 mg PO BID RF: 0 pantoprazole 40 mg Tablet,Delayed Release (Dr/Ec) 40 mg PO DAILY RF: 0 biotin 300 mcg Tablet 600 mcg PO DAILY RF: 0 isosorbide mononitrate 60 mg Tablet Extended Release 24 Hr 60 mg PO QAM RF: 0 simvastatin 20 mg Tablet 20 mg PO PM RF: 0 furosemide 20 mg Tablet 20 mg PO DAILY RF: 0 calcium citrate 200 mg (950 mg) Tablet 600 mg PO PM RF: 0 metronidazole [Metrogel] 1 % Gel 1 % topical PM RF: 0 Stand-Alone Forms: [facility] Discharge Orders: Discharge Order (Routine); Ordered 11/18/18 Ordered By: Adrianna Ricci Admission Data Admit Date/Time: 11/17/18 09:40 Attending Provider: Adrianna Ricci Admit Provider: Adrianna Ricci Primary Care Provider: Luis Fernando Rojas Service: Telemetry
[2018-11-17] MEDS ORDERED: NON-FORMULARY MEDICATION (Insulin Lispro [Humalog U-100 Insulin] 1 sliding scale dose) SQ SCH (10:45)
[2018-11-17] MEDS ORDERED: PHARMACY GLYCEMIC MGMT CONSULT PRN (11:05)
[2018-11-17] MEDS ORDERED: DEXTROSE 50% 50 ML SYRINGE IV PRN (12:00)
[2018-11-17] MEDS ORDERED: GLUCOSE 10 TABS/TUBE PO PRN (12:00)
[2018-11-17] MEDS ORDERED: GLUCAGON FOR INJ 1 MG VIAL SQ PRN (12:00)
[2018-11-17] MEDS ORDERED: GLUCOSE 40% GEL 15 GM TUBE PO PRN (12:00)
[2018-11-17] MEDS ORDERED: CARBOHYDRATES FOR HYPOGLYCEMIA PO PRN (12:00)
[2018-11-17] MEDS: INSULIN ASPART 100 UNITS/ML 3 ML PEN SC SCH ×3 (12:16→21:14)
--- NOTE | 2018-11-17 13:05 | Pharmacy Report ---
Glycemic Control Consultation - Date of Service November 17, 2018 - Scope Scope: Glycemic Pharmacist consulted by Dr Ricci on 11/17 for glycemic control and to write orders per [facility] inpatient glycemic control protocol - Objective Weight: 107 kg Accuchecks BSG (last 24hrs): 11/17/18 11/17/18 07:50 11:19 POC Glucose 169 H 140 H - Recent Pertinent Medications Outpatient Anti-diabetic Regimen: NOTE: Patient reports overnight hypoglycemia 1-2x/week * Lantus 25 units BID * Humalog with meals using CR 1 unit per 4 gm CHO + SSI * A1c = 7.6 % 05/2018 Risk Factors for Insulin Resistance: * Recent Surgery: POD 0 s/p pacemaker placement * Diet: type 2 diabetes - Assessment & Plan Assessment & Plan: ASSESSMENT: * 57 y/o female admitted s/p pacemaker placement today. She has a history of type 2 diabetes managed with basal + bolus insulin. Of note, she reports recent weight loss and a few episodes per week of overnight hypoglycemia. She has been on the same dose of insulins for quite a few years so I suspect her basal will need decreased. She actually had a low of 68 mg/dL @ 0200 this AM and had an orange. Her fasting BSG prior to surgery was 169 mg/dL. She reports taking her full dose of Lantus last night but only 12 units this AM. * Will plan to reduce basal dose based on est total daily needs of ~50 units (considering the outpatient hypoglycemia and reduced po intake while in the hospital). Discharge recommendations provided below. PLAN FOR INPATIENT GLYCEMIC CONTROL: * Basal insulin * Lantus 15 units SQ BID * Bolus insulin * NovoLog per scale ACHS or Q6hrs while NPO * Goal Range: Low 110 mg/dL - High 140 mg/dL * Correction Factor: 20 mg/dL/unit * Nutritional / Prandial insulin per carb ratio of 1 unit per 7 grams CHO consumed * A1c w/ AM labs as most recent one was > 90 days ago Discharge Recommendations: * Decrease Lantus to 20 units BID * Continue Humalog with meals * F/u with outpatient provider for further adjustments if necessary Thank you.
--- NOTE | 2018-11-17 13:18 | Operative Report ---
DATE OF OPERATION: 11/17/2018 PREOPERATIVE DIAGNOSIS: Sinus-andrew syndrome. POSTOPERATIVE DIAGNOSIS: Sinus-andrew syndrome. PROCEDURE: Dual chamber responsive permanent pacemaker under fluoroscopic guidance. SURGEON: Adrianna Ricci DO. MANAGER SUPPLY: None. ANESTHESIA: Monitored conscious sedation administered under my supervision by Bethanie Knapp. Start time 9:15, end time 10:32, a total of 9 mg of Versed, 200 mcg of fentanyl. INTRAVENOUS FLUIDS: 30 mL. ANTIBIOTICS: 2 g of Ancef. BLOOD LOSS: 20 mL. URINE OUTPUT: Not applicable. SPECIMENS: None. FINDINGS: See below. DRAINS: None. INDICATIONS: This is a 57-year-old female with past medical history for sinus bradycardia, SVT, brief episodes of PAT on a Zio patch monitor in 06/2018, normal coronary arteries by cardiac cath in 2012, hypertension, hyperlipidemia, diabetes, chronic kidney disease stage III, obstructive sleep apnea, on CPAP, history of gastric bypass in 03/2017, neuropathy, chronic diastolic heart failure [place] [employer] class II, hypothyroidism, history of endometrial cancer and depression. She started having evidence of sick sinus syndrome over the past few months with dyspnea on exertion and increased fatigue and was recommended a dual chamber pacemaker. CONSENT: Consent was obtained prior to the patient going into the electrophysiology lab. The patient was informed of the risks, benefits, and alternatives of the procedure. Risks include but not limited to sudden cardiac , cardiac arrhythmia, cerebrovascular accident, myocardial infarction, injury to the blood vessels, chamber of the heart, lung, bleeding, and infection. The patient understood these risks and agreed to the procedure as planned. Informed consent was obtained. DESCRIPTION OF THE PROCEDURE: The patient was brought into the electrophysiology lab in a fasting state. She was connected to continuous rod cup filler. A timeout was performed to ensure patient identity and procedure correctly. The patient was prepped and draped over the left infraclavicular space in normal surgical standard fashion. Monitored conscious sedation was given throughout the procedure for the patient's comfort level. [place] precautions were maintained throughout the procedure. A 20 mL of 1% lidocaine-bupivacaine mixture was given in the left deltopectoral groove. Incision was made in the left deltopectoral groove. Blunt dissection was performed down to the cephalic vein. Cephalic was identified and isolated using 0 silk ties. The vein was nicked with an 11 blade and a Glidewire was inserted without any resistance. An 8-Slovenian sheath was inserted over the Glidewire without any resistance. Dilator was removed. A second guidewire was inserted through the 8-Slovenian sheath to allow for retained venous access. The sheath was removed, flushed, dilator reinserted over it and reinserted over one of the guidewires. The guidewire and dilator removed. The right ventricular pacing lead was then advanced into right ventricle and positioned into right ventricular apex under fluoroscopic guidance. There was adequate pacing and sensing thresholds and no diaphragmatic stimulation with high output pacing. The 8-Slovenian sheath was peeled away and lead was fixated to pectoralis muscle using 0 silk suture. A second 8-Slovenian sheath was inserted over the retained guidewire without any resistance. Guidewire and dilator removed. The right atrial pacing lead was then advanced into right atrium and positioned into right atrial appendage under fluoroscopic guidance. There was adequate pacing and sensing thresholds and no diaphragmatic stimulation with high output pacing. The 8-Slovenian sheath was peeled away and lead was fixated to pectoralis muscle using 0 silk suture. An additional 10 mL of 1% lidocaine was given in the pectoralis fascia. Then, using blunt dissection within the pectoral fascia over the pectoralis muscle, a pacemaker pocket was created. The pocket was flushed with copious amounts of bacitracin saline wash and inspected for hemostasis. The pulse generator was then attached to leads, making sure that the pins were in appropriate position, passed, set screws and set screws were tightened. The pulse generator was then placed in the pocket, making sure that the leads were lying flat beneath the device. A stay stitch using 0 silk suture was used to secure the device to the pectoralis muscle. Lili stat was placed in the pocket as the pocket was very deep and I was worried that we might not see a hematoma should one develop. Then the incision was closed in a 4-layered fashion, first using a 2-[address] needle followed by a second interrupted layer with a 2-0 Vicryl on a SH needle, followed by a 3-0 Vicryl interrupted layer, followed by a 4-0 Monocryl running stitch and then Dermabond was applied. EQUIPMENT: 1. Pulse generator is an BplatsI IPM Francean [id number], serial number [id number]. 2. Right atrial lead, Medtronic 5076-52 cm, serial number [id number]. 3. Right ventricular lead, Medtronic 5076-58 cm, serial number [id number]. INTRAOPERATIVE TESTIN. Right atrial lead: P waves 3.6 millivolts, impedance 537 ohms, threshold 0.6 volts at 1.2 milliamps. 2. Right ventricular lead: R waves 6 millivolts, impedance 781 ohms, threshold 0.4 volts at 0.4 milliamps. FINAL MEASUREMENTS THROUGH THE DEVICE: 1. Right atrial lead: P waves 2.6 millivolts, impedance 437 ohms, threshold 0.75 volts at 0.4 milliseconds. 2. Right ventricular lead: R waves 7.1 millivolts, impedance 646 ohms, threshold 0.75 volts at 0.4 milliseconds. FINAL PARAMETERS: MVP-R 60/130. Right atrial amplitude 3.5 volts, pulse width 0.4 milliseconds, sensitivity 0.3 millivolts. Right ventricular amplitude 3.5 volts, pulse width 0.4 milliseconds, sensitivity 1.2 millivolts. IMPRESSION: Successful implantation of a dual chamber rate responsive permanent pacemaker under fluoroscopic guidance secondary to sick sinus syndrome. PLAN: Monitor the patient overnight, 12-lead ECG, chest x-ray. She is not allowed to lift left elbow or left shoulder for 1 month. She cannot lift more than 10 pounds with the left arm for 2 weeks. She can shower in 2 days, let water run over the incision, do not scrub it. She should follow up in our [facility] for device and wound check on Monday 11/27 and she can continue all her current medications. I attest to the content of the Intraoperative Record and any orders documented therein. Any exception s are noted below.
[2018-11-17] MEDS: HydrALAZINE TAB 50 MG TAB PO SCH ×2 (13:39→21:49)
[2018-11-17] MEDS: GABAPENTIN 600 MG TAB PO SCH ×2 (13:39→21:49)
[2018-11-17] MEDS: ACETAMINOPHEN 325 MG TAB PO PRN (13:49)
[2018-11-17] MEDS: OXYCODONE/ACETAMINOPHEN 5mg/325mg TAB PO PRN ×2 (14:51→22:19)
[2018-11-17] MEDS: BuPROPion SR 100 MG TABCR PO SCH (17:29)
[2018-11-17] MEDS ORDERED: CALCIUM CITRATE 950 MG TAB PO SCH (21:00)
[2018-11-17] MEDS ORDERED: LANTUS PER UNIT CHARGE SQ SCH (21:00)
[2018-11-17] MEDS ORDERED: SIMVASTATIN 20 MG TAB PO SCH (21:00)
[2018-11-17] MEDS: INSULIN GLARGINE SOLOSTAR 100 UNITS/ML 3 ML PEN SC SCH (21:13)
[2018-11-18] MEDS: INSULIN ASPART 100 UNITS/ML 3 ML PEN SC SCH ×4 (00:05→12:22)
[2018-11-18] MEDS ORDERED: LEVOTHYROXINE SODIUM 100 MCG TABLET PO SCH (06:30)
--- NOTE | 2018-11-18 07:25 | XRay Report ---
TWO VIEW CHEST CLINICAL HISTORY: Status post pacemaker implantation. FINDINGS: PA and lateral chest radiographs are compared to study dated 10/31/2017. A 2-lead cardiac pa cemaker has been placed and partially obscures the left mid chest. Leads project over the right atria l appendage and the right ventricle. The heart is top normal for projection, and there is atheroscler otic calcification of the thoracic aorta. The pulmonary vasculature is noncongested. There is no airs pace consolidation or pleural effusion. There is no pneumothorax. The bony thorax appears intact. Cho lecystectomy clips are noted. IMPRESSION: 1. A 2-lead cardiac pacemaker has been placed as detailed above. There is no evidence of congestive f ailure. 2. No pneumothorax is identified post procedure. 3. There is no airspace consolidation or pleural effusion. Electronically signed by: Marco Antonio Martins M.D. 11/18/2018 7:23 AM
[2018-11-18] MEDS: BuPROPion SR 100 MG TABCR PO SCH (08:10)
[2018-11-18] MEDS: HydrALAZINE TAB 50 MG TAB PO SCH (08:10)
[2018-11-18] MEDS: GABAPENTIN 600 MG TAB PO SCH (08:11)
[2018-11-18] MEDS: INSULIN GLARGINE SOLOSTAR 100 UNITS/ML 3 ML PEN SC SCH (08:11)
--- NOTE | 2018-11-18 08:12 | Pharmacy Report ---
Pharmacy Glycemic Short Note 2 - Date of Service November 18, 2018 - Glycemic Short BSG Results (Last 24 hours): 11/17/18 11/17/18 11/17/18 11:19 16:11 20:50 POC Glucose 140 H 245 H 66 L* 11/17/18 11/17/18 11/17/18 20:52 21:04 23:55 POC Glucose 65 L* 78 94 11/18/18 11/18/18 03:49 07:36 POC Glucose 108 H 114 H Outpatient Anti-diabetic Regimen: NOTE: Patient reports overnight hypoglycemia 1-2x/week * Lantus 25 units BID * Humalog with meals using CR 1 unit per 4 gm CHO + SSI * A1c = 7.6 % 05/2018 ASSESSMENT: 11/18 * Ms. Finley had a spike in her BSG at dinner last night -> CR was tightened slightly -> low at bedtime -> HS Lantus held * The low BSG at HS seemed to be more related to the Novolog; however, she remained lower overnight with a fasting of 114 mg/dL this AM, indicating that additional Lantus would have been too much * Will plan to reduce Lantus dose further, with a max of 25 units if her BSG increases * CR has already been loosened so will continue the same 11/17 * 57 y/o female admitted s/p pacemaker placement today. She has a history of type 2 diabetes managed with basal + bolus insulin. Of note, she reports recent weight loss and a few episodes per week of overnight hypoglycemia. She has been on the same dose of insulins for quite a few years so I suspect her basal will need decreased. She actually had a low of 68 mg/dL @ 0200 this AM and had an orange. Her fasting BSG prior to surgery was 169 mg/dL. She reports taking her full dose of Lantus last night but only 12 units this AM. * Will plan to reduce basal dose based on est total daily needs of ~50 units (considering the outpatient hypoglycemia and reduced po intake while in the hospital). Discharge recommendations provided below. PLAN FOR INPATIENT GLYCEMIC CONTROL: * Basal insulin - reduce ordered dose * Lantus 15 units qAM * Lantus qPM per the following scale: * Hold for BSG < 140 * 5 units for BSG 140 - 180 * 10 units for BSG > 180 * Bolus insulin - no change * NovoLog per scale ACHS or Q6hrs while NPO * Goal Range: Low 110 mg/dL - High 140 mg/dL * Correction Factor: 20 mg/dL/unit * Nutritional / Prandial insulin per carb ratio of 1 unit per 7 grams CHO consumed PLAN FOR DISCHARGE: * Decrease Lantus to 20 units BID * Continue Humalog with meals * F/u with outpatient [facility] clinic for further adjustments if necessary * Note: I called [facility] today and spoke with Jose. He was going to relay this information to Trixie at the [facility] clinic to call Candi today once she gets home. Insulin adjustments can then be made. Patient will be made aware of this.
[2018-11-18 08:29] LABS: Estimated Average Glucose 180 mg/dl; Hemoglobin A1C 7.9 % (4.5-5.6)
[2018-11-18] MEDS ORDERED: ATORVASTATIN 40 MG TAB PO SCH (09:00)
[2018-11-18] MEDS ORDERED: ISOSORBIDE MONO EXTENDED REL 60 MG TABCR PO SCH (09:00)
[2018-11-18] MEDS ORDERED: PANTOprazole 40 MG TAB PO SCH (09:00)
[2018-11-18] MEDS ORDERED: BIOTIN 600 MCG PO SCH (09:00)
[2018-11-18] MEDS ORDERED: CITALOPRAM 40 MG TAB PO SCH (09:00)
[2018-11-18] MEDS ORDERED: MULTIVITAMIN TAB PO SCH (09:00)
[2018-11-18] MEDS ORDERED: FUROSEMIDE 20 MG TAB PO SCH (09:00)
[2018-11-18] MEDS: ACETAMINOPHEN 325 MG TAB PO PRN (09:11)
[2018-11-18] MEDS ORDERED: INSULIN GLARGINE SOLOSTAR 100 UNITS/ML 3 ML PEN SC SCH (21:00)
== END 2018-11-18 13:35 | disposition home or self-care (01) ==
LOC: ASU 07:28 → 2S 07:28

== ENCOUNTER 2019-08-21 13:14 | Inpatient (IN) ==
[2019-08-21] MEDS ORDERED: DiphenhydrAMINE HCL 50 MG/ML VIAL IV STA ×2 (13:54→16:19)
[2019-08-21] MEDS ORDERED: MECLIZINE HCL 25 MG TAB PO STA (13:54)
[2019-08-21] MEDS ORDERED: ONDANSETRON INJ 2 MG/ML 2 ML VIAL IV STA (13:54)
--- NOTE | 2019-08-21 14:19 | CT Scan Report ---
HEAD CT NONCONTRAST CT DOSE: 773.57 mGy.cm HISTORY: acute headache, dizziness TECHNIQUE: Multiaxial CT images of the head were performed without the use of intravenous contrast. A utomated exposure control was utilized for this study. A dose lowering technique was utilized adheri ng to the principles of ALARA. Comparison: Head CT 06/02/2015. Findings: Small retention cyst within the left sphenoid sinus, unchanged. The mastoid air cells are c lear. The calvarium and skull base are intact. The ventricles and sulci are within normal limits. The re is no mass, hematoma, midline shift, or acute infarct. Impression: No acute intracranial abnormality. ACT 112: Negative or not required by law. Electronically signed by: Kendell Toth M.D. 08/21/2019 2:18 PM
[2019-08-21 14:22] LABS: Basophils # (auto) 0.05 K/uL (0-0.2); Basophils % (auto) 0.5 %; Eosinophils # (auto) 0.06 K/uL (0-0.5); Eosinophils % (auto) 0.6 %; Hematocrit (blood only) 35.4 % (37-47); Hemoglobin 11.4 g/dL (12.0-16.0); Immature Granulocytes # (auto) 0.03 K/uL (0.00-0.02); Immature Granulocytes % (auto) 0.3 %; Lymphocytes # (auto) 1.97 K/uL (1.2-3.4); Lymphocytes % (auto) 20.2 %; Mean Corpuscular Hemoglobin 30.3 pg (25-34); Mean Corpuscular Hgb Conc 32.2 g/dL (32-36); Mean Corpuscular Volume 94.1 fL (80-100); Mean Platelet Volume 10.3 fL (7.4-10.4); Monocytes # (auto) 0.47 K/uL (0.11-0.59); Monocytes % (auto) 4.8 %; Neutrophils # (auto) 7.15 K/uL (1.4-6.5); Neutrophils % (auto) 73.6 %; Platelet Count 258 K/uL (130-400); RDW Coefficient of Variation 12.9 % (11.5-14.5); RDW Standard Deviation 44.5 fL (36.4-46.3); Red Blood Count 3.76 M/uL (4.2-5.4); White Blood Count 9.73 K/uL (4.8-10.8)
[2019-08-21 14:33] LABS: Alanine Aminotransferase 54 U/L (12-78); Albumin Level 3.5 gm/dl (3.4-5.0); Aspartate Aminotransferase 31 U/L (15-37); BUN Creatinine Ratio 18.4 (10-20); Blood Urea Nitrogen 27 mg/dl (7-18); Calcium 9.4 mg/dl (8.5-10.1); Carbon Dioxide 28 mmol/L (21-32); Chloride 102 mmol/L (98-107); Creatinine Clr Calc Pharmacy 52.5 ml/min; Est GFR (African American) 44.5; Est GFR (Non-African American) 38.4; Glucose 215 mg/dl (70-99); Potassium 4.9 mmol/L (3.5-5.1); Sodium 135 mmol/L (136-145)
[2019-08-21 14:36] LABS: INR 1.1 (0.9-1.1); Partial Thromboplastin Time 25.8 Seconds (21.0-31.0); Prothrombin Time 10.8 Seconds (9.0-12.0)
--- NOTE | 2019-08-21 14:39 | XRay Report ---
XR chest 1V portable HISTORY: dizziness COMPARISON: Chest 08/11/2019. FINDINGS: The heart is top normal in size. No evidence for pulmonary edema. No pleural effusions. No pneumothorax. Left-sided dual-chamber pacemaker. IMPRESSION: No acute process. ACT 112: Negative or not required by law. Electronically signed by: Kendell Toth M.D. 08/21/2019 2:37 PM
[2019-08-21 14:43] LABS: Albumin Globulin Ratio 0.9 (0.9-2); Alkaline Phosphatase 137 U/L (45-117); Bilirubin,Total 0.4 mg/dl (0.2-1); Globulin 4.1 gm/dl (2.5-4.0); NT Pro B Type Natriuretic Pept 589 pg/ml (0-900); Total Protein 7.6 gm/dl (6.4-8.2); Troponin I < 0.015 ng/ml (0-0.045)
[2019-08-21 14:45] LABS: Appearance Urine Clear (Clear); Bacteria Urine Automated Negative (Negative); Bilirubin Urine Negative (Negative); Blood Urine Negative (Negative); Cast Urine Automated 0 /lpf (0-5); Color Urine Yellow; Glucose Urine UA Trace (Negative); Ketones Urine Negative (Negative); Leukocyte Esterase Urine Negative (Negative); Nitrite Urine Negative (Negative); Protein Urine 1+ (Negative); RBC Urine Automated 0-4 /hpf (0-4); Specific Gravity Urine 1.008 (1.000-1.030); Urobilinogen Urine Negative (Negative)
[2019-08-21] MEDS ORDERED: DIAZEPAM 5 MG/ML INJ 10ML VIAL IV STA (15:19)
--- NOTE | 2019-08-21 16:18 | Emergency Department Note ---
ED Visit Note Patient was seen and evaluated at the bedside w/ Winnie Delgadillo PA-C. Please see their note for history, physical, details, and disposition. The patient has been having nausea vomiting. More vertiginous symptoms with some associated nystagmus. Blood work shows elevated blood glucose negative CT. Patient was admitted to the medicine service. .
[2019-08-21] MEDS ORDERED: SODIUM CHLORIDE 0.9% 1000ML 500 ML IV ONE (16:19)
[2019-08-21] MEDS ORDERED: PROCHLORPERAZINE 1 ML IV ONE (16:19)
[2019-08-21] MEDS: HydrALAZINE HCL 20 MG/ML VIAL IV STA ×2 (16:29→16:34)
--- NOTE | 2019-08-21 16:32 | Emergency Department Note ---
History of Present Illness General Chief Complaint: Illness Stated Complaint: nausea/dizzy Source: patient Mode of arrival: ambulatory Limitations: no limitations History of Present Illness Provider complaint: dizziness and near syncope Onset (ago): hour(s) 8 Timing: + sudden onset Description: + "room spinning" History of similar episodes: No History of trauma: No Severity: moderate Maximum Pain Intensity: 3 Current Pain Intensity: 3 Relieved By: + nothing Exacerbated By: + movement and + position Associated symptoms: + denies other symptoms This 58 year old female patient presents to the ED today via ambulance for evaluation of dizziness. Patient states she awoke this morning at approximately 7 AM, rolled over, noticed that the room was spinning. She laid in bed and tried taking her Synthroid, then vomited almost immediately. She states she them laid in bed for another hour to an hour and a half when she got up to wash her hair in the sink and when she bent over, she almost fell and felt l ightheaded. She went back to bed, but continued to experience vomiting and noticed that the room was spinning with any sort of movement or change in gaze. She tried eating and drinking and was unsuccessful. She tried watching TV, and this worsened her symptoms as well. She has been able to ambulate and was able to go up and down the stairs without difficulty. Dizziness is worse with opening her eyes or moving her head. Patient denies any weakness, slurred speech, confusion, visual disturbances, numbness, or tingling. Patient denies any recent falls or trauma. She denies history of vertigo or similar symptoms in the past. Family states she has been acting normally. She denies any recent illness or fever. She was recently seen in the emergency department last week for heart failure. Home Medications Home Medications Medication Instructions Recorded Confirmed Type Humalog U-100 Insulin 1 sliding scale dose SUBCUT UD 07/05/18 08/21/19 History Lantus U-100 Insulin 20 unit SUBCUT BID 07/05/18 08/21/19 History atorvastatin 40 mg PO DAILY 07/05/18 08/21/19 History bupropion HCl [Wellbutrin SR] 100 mg PO BID 07/05/18 08/21/19 History citalopram 40 mg PO DAILY 07/05/18 08/21/19 History gabapentin 600 mg PO TID 07/05/18 08/21/19 History hydralazine 50 mg PO TID 07/05/18 08/21/19 History levothyroxine [Synthroid] 100 mcg PO DAILY 07/05/18 08/21/19 History multivitamin 1 tab PO DAILY 07/05/18 08/21/19 History pantoprazole 40 mg PO DAILY 07/05/18 08/21/19 History doxycycline hyclate 20 mg PO BID 08/11/19 08/21/19 History carvedilol 6.25 mg PO BID 08/21/19 08/21/19 History furosemide 20 mg PO UD 08/21/19 08/21/19 History furosemide 40 mg PO UD 08/21/19 08/21/19 History Allergies Allergy/AdvReac Type Severity Reaction Status Date / Time CHIDI Inhibitors AdvReac Mild COUGH Verified 08/11/19 13:05 Past Med/Surg History Medical History CKD (chronic kidney disease), stage III Depression Diabetes mellitus, type II (Chronic) Diastolic heart failure (Chronic) Difficult airway for intubation (Resolved) Endometrial carcinoma (Resolved 02/23/13) "S/P hysterectomy " History of melanoma (Resolved) HLD (hyperlipidemia) (Chronic) HTN (hypertension) (Chronic) Hypothyroidism MDD (major depressive disorder) (Chronic) MINISTERIO on CPAP (Chronic) SSS (sick sinus syndrome) Pt admitted for elective pacemaker due to SSS. She underwent procedure without any complications. Monitored over night and discharged home. Surgical History H/O esophagogastroduodenoscopy (Chronic) History of cholecystectomy (Resolved) Hx of cardiac cath (Resolved) "2012, negative for CAD " Hx of gastric bypass (Acute) S/P knee surgery (Chronic) Family History Other Colonic polyp GERD (gastroesophageal reflux disease) Social History Preferred Language: Fijian Communication Ability: Effective Plant Mechanic Required: No Beliefs That Will Affect Care: Religion Religion Beliefs: christain Current Living Situation: Spouse Other Information That Helps Us Care for You: No Feels Safe at Home: Yes Safety Concerns: Feels Safe At This Time Smoking Status: Never smoker Tobacco Type: cigarettes ; Second Hand Exposure: No ; Hx Alcohol Use: No Hx Substance Use: No Review of Systems A total of 10 systems reviewed and were otherwise negative Physical Exam Vital Signs Vital Signs - 24 hr 08/21/19 13:27 08/21/19 13:58 08/21/19 14:11 Temperature 36.9 C Temperature Source Oral Pulse Rate - Lying 64 Pulse Rate - Sitting 70 Pulse Rate - Standing 65 Pulse Rate 68 Pulse Rate [Apical] Respiratory Rate 22 Blood Pressure - Lying 187/74 H Blood Pressure - Sitting 168/73 H Blood Pressure- Standing 130/65 Blood Pressure 169/68 H Blood Pressure [Left Arm] Blood Pressure Mean 101 Blood Pressure Mean [Left Arm] Pulse Oximetry 99 99 Oxygen Delivery Method Room Air Room Air Sepsis Recent Fever Within 48 Hours No Sepsis Action Taken by Nursing No Action Required 08/21/19 15:27 Temperature Temperature Source Pulse Rate - Lying Pulse Rate - Sitting Pulse Rate - Standing Pulse Rate Pulse Rate [Apical] 61 Respiratory Rate 18 Blood Pressure - Lying Blood Pressure - Sitting Blood Pressure- Standing Blood Pressure Blood Pressure [Left Arm] 206/104 H Blood Pressure Mean Blood Pressure Mean [Left Arm] 138 Pulse Oximetry 97 Oxygen Delivery Method Room Air Sepsis Recent Fever Within 48 Hours Sepsis Action Taken by Nursing VITALS: Vitals are noted on the nurse's note and reviewed by myself. Vital signs stable. GENERAL: This is a 58 year old obese white female, in no acute distress, nondiaphoretic, well-developed well-nourished. SKIN: The skin was without rashes, erythema, edema, or bruising. There is no tenting of the skin. Capillary refill less than 2 seconds. HEAD: Normocephalic atraumatic. EARS: External auditory canals clear, tympanic membranes pearly craft without erythema or effusion bilaterally. EYES: Pupils equal round and reactive to light and accommodation. Conjunctivae without injection, sclerae without icterus. Horizontal nystagmus bilaterally with lateral gaze. NOSE: Patent, turbinates without inflammation or discharge. No sinus tenderness. MOUTH: Mucous membranes moist. Tonsils are not enlarged. Pharynx without erythema or exudate. Uvula midline. Airway patent. Tongue does not deviate. NECK: Supple without nuchal rigidity. No lymphadenopathy. No thyromegaly. Cervical spine is nontender. No JVD. HEART: Regular rate and rhythm without murmurs gallops or rubs. LUNGS: Clear to auscultation bilaterally without wheezes, rales or rhonchi. No dullness to percussion. No retractions or accessory muscle use. ABDOMEN: Positive bowel sounds x 4. Normal tympanic percussion. Soft, nontender, without masses or organomegaly. Regalado sign negative. No guarding or rebound tenderness. MUSCULOSKELETAL: No muscle atrophy, erythema, or edema noted. Full range of motion without joint tenderness in all extremities. No tenderness to palpation. Normal gait. Strength 5/5 throughout. NEURO: Patient was alert and oriented to person place and time. Normal sensation to light and sharp touch. Deep tendon reflexes 2+ throughout. No focal neurological deficits. Cranial nerves II through XII grossly intact. Course Course The patient was seen and evaluated as above. Patient had been medicated prior to ED arrival with sublingual Zofran and Ativan. IV access obtained, labs drawn. Patient medicated with diphenhydramine, Zofran, meclizine. Imaging performed and reviewed by myself and radiologist as above. Labs reviewed by myself. I discussed the findings with the patient at bedside. She was reassessed and continues to complain of significant dizziness. She was given 2.5 mg IV Valium. I discussed the case with my attending. He did see and evaluate the patient Patient was then reassessed and continues to complain of dizziness and vertigo. She was given a second dose of IV Benadryl, Compazine, and small IV fluid bolus. She was given 5 mg IV hydralazine due to hypertension. Patient was not responding to the above medications. Due to the ongoing dizziness, I did recommend admission for further evaluation and management of her symptoms. I spoke with Cydney Greenfield PA-C with [facility]. She did agree to see and evaluate the patient for admission. Please see her dictation regarding ongoing management care of this patient. Administered Medications Discontinued Medications Diazepam (Valium) 2.5 mg IV NOW STA Stop: 08/21/19 15:20 Last Admin: 08/21/19 15:35 Dose: 2.5 mg Documented by: [id number] Diphenhydramine HCl (Benadryl) 25 mg IV NOW STA Stop: 08/21/19 13:55 Last Admin: 08/21/19 14:18 Dose: 25 mg Documented by: [id number] Diphenhydramine HCl (Benadryl) 25 mg IV NOW STA Stop: 08/21/19 16:20 Last Admin: 08/21/19 16:29 Dose: 25 mg Documented by: [id number] Hydralazine HCl (Hydralazine Hcl) 10 mg IV NOW STA Stop: 08/21/19 16:21 Last Admin: 08/21/19 16:34 Dose: 5 mg Documented by: [id number] Prochlorperazine (Compazine) 1 mls @ 1 mls/min IV ONE ONE Stop: 08/21/19 16:20 Last Admin: 08/21/19 16:29 Dose: 1 mls/min Documented by: [id number] Sodium Chloride (Nss 1000ml) 500 mls @ 999 mls/hr IV .Q31M ONE Stop: 08/21/19 16:49 Last Infusion: 08/21/19 16:59 Dose: 0 mls/hr Documented by: [id number] Admin: 08/21/19 16:28 Dose: 999 mls/hr Documented by: [id number] Lorazepam (Ativan) 1 mg in 2 mls @ 2 mls/min IV NOW STA Stop: 08/21/19 17:46 Last Admin: 08/21/19 18:09 Dose: 2 mls/min Documented by: [id number] Meclizine HCl (Antivert) 25 mg PO NOW STA Stop: 08/21/19 13:55 Last Admin: 08/21/19 14:18 Dose: 25 mg Documented by: [id number] Ondansetron HCl (Zofran) 4 mg IV NOW STA Stop: 08/21/19 13:55 Last Admin: 08/21/19 14:18 Dose: 4 mg Documented by: [id number] Medical Decision Making Differential Diagnosis + adverse reaction to drug, + benign positional vertigo, + orthostatic hypotensi on, + vertebral basilar insufficiency, + posterior CVA, + acute vestibular neuronitis, + transient cerebral ischemia, + orthostasis, + dehydration, + tumor, + infection, + hypoglycemia, + electrolyte abnormalities, + cardiac sources, + intracerebral event and + toxicologic Medical Records Attestation: I reviewed the patient's medical records. Home Medications Current Medication List: was personally reviewed by me Laboratory Data Attestation: I reviewed the patient's lab results. No leukocytosis. Mild anemia with a hemoglobin 11.4 and hematocrit of 35.4. No thrombocytopenia. Hepatic function, and electrolytes without significant abnormality. Troponin negative. BNP 589. TSH 1.46. Glucose elevated at 215. Creatinine 1.47. Urinalysis negative for blood or infection. Result diagrams: 08/21/19 13:30 08/21/19 13:30 Lab Results 08/21/19 08/21/19 08/21/19 Range/Units 13:30 13:30 13:30 WBC 9.73 (4.8-10.8) K/uL RBC 3.76 L (4.2-5.4) M/uL Hgb 11.4 L (12.0-16.0) g/dL Hct 35.4 L (37-47) % MCV 94.1 (80-100) fL MCH 30.3 (25-34) pg MCHC 32.2 (32-36) g/dL RDW Std Deviation 44.5 (36.4-46.3) fL RDW Coeff of Leatha 12.9 (11.5-14.5) % Plt Count 258 (130-400) K/uL MPV 10.3 (7.4-10.4) fL Immature Gran % (Auto) 0.3 % Neut % (Auto) 73.6 % Lymph % (Auto) 20.2 % Robertson % (Auto) 4.8 % Eos % (Auto) 0.6 % Baso % (Auto) 0.5 % Immature Gran # (Auto) 0.03 H (0.00-0.02) K/uL Neut # (Auto) 7.15 H (1.4-6.5) K/uL Lymph # (Auto) 1.97 (1.2-3.4) K/uL Robertson # (Auto) 0.47 (0.11-0.59) K/uL Eos # (Auto) 0.06 (0-0.5) K/uL Baso # (Auto) 0.05 (0-0.2) K/uL PT 10.8 (9.0-12.0) Seconds INR 1.1 (0.9-1.1) APTT 25.8 (21.0-31.0) Seconds PTT Ratio 1.0 Sodium 135 L (136-145) mmol/L Potassium 4.9 (3.5-5.1) mmol/L Chloride 102 (98-107) mmol/L Carbon Dioxide 28 (21-32) mmol/L Anion Gap 5.0 (3-11) BUN 27 H (7-18) mg/dl Creatinine 1.47 H (0.6-1.2) mg/dl Est Cr Clr Drug Dosing 52.5 ml/min Est GFR ( Amer) 44.5 Est GFR (Non-Af Amer) 38.4 BUN/Creatinine Ratio 18.4 (10-20) Glucose 215 H (70-99) mg/dl Calcium 9.4 (8.5-10.1) mg/dl Total Bilirubin 0.4 (0.2-1) mg/dl AST 31 (15-37) U/L ALT 54 (12-78) U/L Alkaline Phosphatase 137 H (45-117) U/L Troponin I < 0.015 (0-0.045) ng/ml NT-Pro-B Natriuret Pep 589 (0-900) pg/ml Total Protein 7.6 (6.4-8.2) gm/dl Albumin 3.5 (3.4-5.0) gm/dl Globulin 4.1 H (2.5-4.0) gm/dl Albumin/Globulin Ratio 0.9 (0.9-2) TSH 1.460 (0.300-4.500) uIu/ml Urine Color Urine Appearance (Clear) Urine pH (4.5-7.5) Ur Specific Union (1.000-1.030) Urine Protein (Negative) Urine Glucose (UA) (Negative) Urine Ketones (Negative) Urine Blood (Negative) Urine Nitrite (Negative) Urine Bilirubin (Negative) Urine Urobilinogen (Negative) Ur Leukocyte Esterase (Negative) Urine WBC (Auto) (0-5) /hpf Urine RBC (Auto) (0-4) /hpf U Hyaline Cast (Auto) (0-5) /lpf U Epithel Cells (Auto) (0-5) /lpf Urine Bacteria (Auto) (Negative) 08/21/19 Range/Units 14:21 WBC (4.8-10.8) K/uL RBC (4.2-5.4) M/uL Hgb (12.0-16.0) g/dL Hct (37-47) % MCV (80-100) fL MCH (25-34) pg MCHC (32-36) g/dL RDW Std Deviation (36.4-46.3) fL RDW Coeff of Leatha (11.5-14.5) % Plt Count (130-400) K/uL MPV (7.4-10.4) fL Immature Gran % (Auto) % Neut % (Auto) % Lymph % (Auto) % Robertson % (Auto) % Eos % (Auto) % Baso % (Auto) % Immature Gran # (Auto) (0.00-0.02) K/uL Neut # (Auto) (1.4-6.5) K/uL Lymph # (Auto) (1.2-3.4) K/uL Robertson # (Auto) (0.11-0.59) K/uL Eos # (Auto) (0-0.5) K/uL Baso # (Auto) (0-0.2) K/uL PT (9.0-12.0) Seconds INR (0.9-1.1) APTT (21.0-31.0) Seconds PTT Ratio Sodium (136-145) mmol/L Potassium (3.5-5.1) mmol/L Chloride (98-107) mmol/L Carbon Dioxide (21-32) mmol/L Anion Gap (3-11) BUN (7-18) mg/dl Creatinine (0.6-1.2) mg/dl Est Cr Clr Drug Dosing ml/min Est GFR ( Amer) Est GFR (Non-Af Amer) BUN/Creatinine Ratio (10-20) Glucose (70-99) mg/dl Calcium (8.5-10.1) mg/dl Total Bilirubin (0.2-1) mg/dl AST (15-37) U/L ALT (12-78) U/L Alkaline Phosphatase (45-117) U/L Troponin I (0-0.045) ng/ml NT-Pro-B Natriuret Pep (0-900) pg/ml Total Protein (6.4-8.2) gm/dl Albumin (3.4-5.0) gm/dl Globulin (2.5-4.0) gm/dl Albumin/Globulin Ratio (0.9-2) TSH (0.300-4.500) uIu/ml Urine Color Yellow Urine Appearance Clear (Clear) Urine pH 7.0 (4.5-7.5) Ur Specific Union 1.008 (1.000-1.030) Urine Protein 1+ H (Negative) Urine Glucose (UA) Trace H (Negative) Urine Ketones Negative (Negative) Urine Blood Negative (Negative) Urine Nitrite Negative (Negative) Urine Bilirubin Negative (Negative) Urine Urobilinogen Negative (Negative) Ur Leukocyte Esterase Negative (Negative) Urine WBC (Auto) 1-5 (0-5) /hpf Urine RBC (Auto) 0-4 (0-4) /hpf U Hyaline Cast (Auto) 0 (0-5) /lpf U Epithel Cells (Auto) 5-10 H (0-5) /lpf Urine Bacteria (Auto) Negative (Negative) Imaging Data Radiologist's Impression: HEAD CT NONCONTRAST CT DOSE: 773.57 mGy.cm HISTORY: acute headache, dizziness TECHNIQUE: Multiaxial CT images of the head were performed without the use of intravenous contrast. Automated exposure control was utilized for this study. A dose lowering technique was utilized adhering to the principles of ALARA. Comparison: Head CT 06/02/2015. Findings: Small retention cyst within the left sphenoid sinus, unchanged. The mastoid air cells are clear. The calvarium and skull base are intact. The ventricles and sulci are within normal limits. There is no mass, hematoma, midline shift, or acute infarct. Impression: No acute intracranial abnormality. ACT 112: Negative or not required by law. Electronically signed by: Kendell Toth M.D. 08/21/2019 2:18 PM XR chest 1V portable HISTORY: dizziness COMPARISON: Chest 08/11/2019. FINDINGS: The heart is top normal in size. No evidence for pulmonary edema. No pleural effusions. No pneumothorax. Left-sided dual-chamber pacemaker. IMPRESSION: No acute process. ACT 112: Negative or not required by law. Electronically signed by: Kendell Toth M.D. 08/21/2019 2:37 PM ECG Data Attestation: I personally reviewed and interpreted this ECG as follows: Indication: other (Dizziness) Rate (beats per minute): 62 Rhythm: other (Atrial paced rhythm, prolonged AV conduction) Findings: no ST depression, no T-wave inversion, no ST elevation and no acute ischemic change Comparison ECG Date: from (08/11/2019) Change: no significant change Blood Pressure Blood Pressure Findings: Elevated blood pressure Blood Pressure Disposition: elevated BP felt to be situational Head Trauma GCS Score: 15 MDM Narrative This 58-year-old female patient presents emergency department today for evaluation of vertigo. The symptoms began suddenly upon awakening. There was no trauma. She has not recently been ill. There is no history of vertigo. There are no neurologic symptoms. There is no deficit on examination. Lab and imaging work-up overall negative. The vertigo and vomiting did not respond to multiple rounds of medications given prehospital and the ED. Ultimately, decision was made to admit the patient to the medicine service for further evaluation and management of the symptoms. The patient was agreeable with this decision. I did speak with the [facility] hospitalist who did see and evaluate the patient. Please see hospitalist dictation regarding ongoing management care of this patient. The chart was completed utilizing [employer] Speech voice recognition software. Grammatical errors, random word insertions, pronoun errors, and incomplete sentences are an occasional consequence of this system due to software limitations, ambient noise, and hardware issues. Any formal questions or concerns about the content, text, or information contained within the body of this dictation should be directly addressed to the provider for clarification. Impression & Plan Vertigo, HTN (hypertension), Nausea & vomiting Discharge Plan Visit Data *Final* Discharge Date/Time: 08/21/19 17:16 Chief Complaint: Illness Stated Complaint: nausea/dizzy ED Provider: Jayro Cates ED Midlevel Provider: Winnie Delgadillo Discharge Problem: Vertigo, HTN (hypertension), Nausea & vomiting Patient Disposition: Admitted As Inpatient Condition: Good Discharge Instructions Interventions: ED Discharge Assessment Last Done: 08/21/19 17:16
--- NOTE | 2019-08-21 17:40 | History & Physical Report ---
Date of Service August 21, 2019 Assessment & Plan (1) Vertigo: Pt is 58 y/o F with PMH sick sinus syndrome s/p pacemaker, paroxysmal atrial tachycardia, rheumatic mitral regurgitation, DM II, CKD III, HTN, HLD, MINISTERIO, seizure, obesity, depression presented to ER with complaint of dizziness. Patient states this morning woke up and when she turned over in bed she started having dizziness described as the room spinning with associated nausea and vomiting In ER pt afebrile, P: 68, R: 22, BP: 169/68, 99% on RA. No leukocytosis, negative troponin, EKG paced rhythm, TSH: 1.4 CT Head: no acute changes History and exam appear consistent with positional vertigo -In ER patient given Benadryl 50 mg IV, Zofran 4 mg IV, meclizine 25 mg p.o., Valium 2.5 mg IV, Compazine IV, hydralazine 10 mg IV, NSS 500 mL bolus with reported continued dizziness with movement -fall precautions -meclizine prn dizziness -PT consult for assistance with Catalina maneuver -may need to consider neurology consult or further imaging if no improvement -CBC, BMP in am (2) HTN (hypertension): Hypertensive in ER. May be secondary to pt vomiting am meds and anxiety with current dizziness. Received some sedative meds in ER and pt becoming drowsy. Suspect BP will normalize -Monitor BP, may need to consider additional agents -Continue carvedilol, hydralazine (3) Diabetes mellitus, type II: A1c: 8.3 -Continue Home Lantus, Novolog sliding scale per protocol (4) HLD (hyperlipidemia): -Continue atorvastatin (5) SSS (sick sinus syndrome): S/P Pacemaker. Recent pacer interrogation on 08/11/2019: Underlying sinus rhythm with atrial pacing, generator longevity stable at 13.2 years. No recent arrhythmia episodes detected including no significant VT, atrial tachycardia, or atrial fibrillation events. Patient is atrial paced 49.7% the time and ventricular paced less than 0.1% of the time. (6) Diastolic heart failure: Appears euvolemic today Recent echo 08/19/2019: EF: 55-59%, mild aortic sclerosis, mild mitral regurgitation, mild tricuspid regurgitation -Continue Lasix -Monitor I's & O's (7) CKD (chronic kidney disease), stage III: BUN: 27, Cr: 1.47. (baseline Cr: 1.4-1.6) -Monitor renal functions -Avoid nephrotoxic agents when possible (8) Hypothyroidism: TSH: 1.4 -Continue levothyroxine (9) MINISTERIO on CPAP: -CPAP HS (10) Depression: -Continue citalopram, bupropion DVT Prophylaxis -low risk - ambulate Full Code as per discussion with pt Follows with Dr Rojas for routine care Pt was seen and care coordinated with Dr Cleveland. See addendum History of Present Illness Chief Complaint: Dizziness Primary Care Provider: Luis Fernando Rojas MD Pt is 58 y/o F with PMH sick sinus syndrome s/p pacemaker, paroxysmal atrial tachycardia, rheumatic mitral regurgitation, DM II, CKD III, HTN, HLD, MINISTERIO, seizure, obesity, depression presented to ER with complaint of dizziness. Patient states this morning woke up and when she turned over in bed she started having dizziness described as the room spinning with associated nausea. Patient states attempted to walk however was unable to secondary to dizziness. Also complains of vomiting. Dizziness worsened with any type of movement. Patient states feels a little better when she closes her eyes. Reports this morning had some headache which has since resolved. States some mild nasal congestion past couple days which she related to allergies. Denies any history of head injury, falls. Denies history of vertigo before. Is reported EMS gave patient Zofran and Ativan without much relief. Patient was started on Coreg 6.25 on 08/13/[address] Stevenson. Patient denies any other new medications or [id number] medications. Denies alcohol or recreational drug consumption. Patient was seen in ER 08/11/2019 for chest pain, palpitations, fluid overload and was given 1 dose IV Lasix. She has since followed up with cardiology who kept her oral Lasix the same. Patient reports improvement of lower extremity edema. Denies fever/chills, diaphoresis, diarrhea, constipation, syncope, vision changes, neck pain, CP, SOB, orthopnea, palpitations, cough, sore throat, choking, otalgia, rhinorrhea, abdominal pain, paresthesias, weakness, extremity weakness, extremity edema, rashes, urinary symptoms. In ER patient given Benadryl 50 mg IV, Zofran 4 mg IV, meclizine 25 mg p.o., Valium 2.5 mg IV, Compazine IV, hydralazine 10 mg IV, NSS 500 mL bolus with reported continued dizziness. Allergies Allergy/AdvReac Type Severity Reaction Status Date / Time CHIDI Inhibitors AdvReac Mild COUGH Verified 08/11/19 13:05 Home Medications Home Medications Medication Instructions Recorded Confirmed Type Humalog U-100 Insulin 1 sliding scale dose SUBCUT UD 07/05/18 08/21/19 History Lantus U-100 Insulin 20 unit SUBCUT BID 07/05/18 08/21/19 History atorvastatin 40 mg PO DAILY 07/05/18 08/21/19 History bupropion HCl [Wellbutrin SR] 100 mg PO BID 07/05/18 08/21/19 History citalopram 40 mg PO DAILY 07/05/18 08/21/19 History gabapentin 600 mg PO TID 07/05/18 08/21/19 History hydralazine 50 mg PO TID 07/05/18 08/21/19 History levothyroxine [Synthroid] 100 mcg PO DAILY 07/05/18 08/21/19 History multivitamin 1 tab PO DAILY 07/05/18 08/21/19 History pantoprazole 40 mg PO DAILY 07/05/18 08/21/19 History doxycycline hyclate 20 mg PO BID 08/11/19 08/21/19 History carvedilol 6.25 mg PO BID 08/21/19 08/21/19 History furosemide 20 mg PO UD 08/21/19 08/21/19 History furosemide 40 mg PO UD 08/21/19 08/21/19 History Past Med/Surg History Medical History CKD (chronic kidney disease), stage III Depression Diabetes mellitus, type II (Chronic) Diastolic heart failure (Chronic) Difficult airway for intubation (Resolved) Endometrial carcinoma (Resolved 02/23/13) "S/P hysterectomy " History of melanoma (Resolved) HLD (hyperlipidemia) (Chronic) HTN (hypertension) (Chronic) Hypothyroidism MDD (major depressive disorder) (Chronic) MINISTERIO on CPAP (Chronic) SSS (sick sinus syndrome) Pt admitted for elective pacemaker due to SSS. She underwent procedure without any complications. Monitored over night and discharged home. Surgical History H/O esophagogastroduodenoscopy (Chronic) History of cholecystectomy (Resolved) Hx of cardiac cath (Resolved) "2012, negative for CAD " Hx of gastric bypass (Acute) S/P knee surgery (Chronic) Family History Other Colonic polyp GERD (gastroesophageal reflux disease) Social History Preferred Language: Chinese Communication Ability: Effective Driver License Agent Required: No Beliefs That Will Affect Care: Buddhism Buddhism Beliefs: christain Current Living Situation: Spouse Other Information That Helps Us Care for You: No Feels Safe at Home: Yes Safety Concerns: Feels Safe At This Time Smoking Status: Never smoker Tobacco Type: cigarettes ; Second Hand Exposure: No ; Hx Alcohol Use: No Hx Substance Use: No Review of Systems Review of Systems: All systems reviewed & are unremarkable except as noted in HPI & below Physical Exam Physical Exam: General: no distress at this time, pt resting with eyes close, obese Head: normocephalic, atraumatic Eyes: PERRL, EOM's intact, +horizontal nystagmus, conjunctiva non-injected, anicteric ENT: normal inspection external ears, nose, mucous membranes moist Neck: supple, trachea midline, non-tender Lungs: clear, no respiratory distress, no wheezing/rhonchi/rales CV: RRR, no murmur, 1+ pretibial edema Abd: protuberant, normal BS, soft, non-tender Ext: no cyanosis, no calf tenderness Neuro: +sleepy, does awaken to name and is A&O x 3, +horizontal nystagmus, +dizziness/nausea with sitting up, no other focal deficits noted, normal affect Skin: warm, dry Results & Data Vital Signs (Past 12 Hours) Vital Signs Temp Pulse Pulse Resp BP BP Pulse Ox 08/21/19 17:09 71 18 213/109 H 97 08/21/19 15:27 61 18 206/104 H 97 08/21/19 13:58 99 08/21/19 13:27 36.9 C 68 22 169/68 H 99 Laboratory Results Short CBC 08/21/19 Range/Units 13:30 WBC 9.73 (4.8-10.8) K/uL Hgb 11.4 L (12.0-16.0) g/dL Hct 35.4 L (37-47) % Plt Count 258 (130-400) K/uL BMP 08/21/19 13:30 Sodium 135 L Potassium 4.9 Chloride 102 Carbon Dioxide 28 BUN 27 H Creatinine 1.47 H Glucose 215 H Calcium 9.4 Cardiac Enzymes 08/21/19 Range/Units 13:30 Troponin I < 0.015 (0-0.045) ng/ml Liver Function 08/21/19 Range/Units 13:30 Total Bilirubin 0.4 (0.2-1) mg/dl AST 31 (15-37) U/L ALT 54 (12-78) U/L Alkaline Phosphatase 137 H (45-117) U/L Albumin 3.5 (3.4-5.0) gm/dl Urine 08/21/19 Range/Units 14:21 Urine Color Yellow Urine Appearance Clear (Clear) Urine pH 7.0 (4.5-7.5) Ur Specific [place] 1.008 (1.000-1.030) Urine Protein 1+ H (Negative) Urine Glucose (UA) Trace H (Negative) Diagnostic Findings CT HEAD: Impression: No acute intracranial abnormality. CXR: IMPRESSION: No acute process. ECG Rate (beats per minute): 62 Findings: + paced rhythm Code Status & VTE Plan VTE Prophylaxis Plan VTE Prophylaxis will be ordered: No Supervising Physician Co-Signing Physician Notes HISTORY: Record reviewed. Patient interviewed and examined. Care coordinated with Jessica Greenfield PA-C. Please refer to her documentation for complete history. Briefly, 58-year-old female with history of arrhythmias, diastolic heart failure, hypertension, diabetes, and other problems as noted. Developed acute onset of vertigo this morning after rolling over in bed. Symptoms persisted, so she came to ED for evaluation. Persistent vertigo after receiving meclizine and diazepam. EXAM: General- no distress Lungs- clear to auscultation; no respiratory distress Cardiovascular- RRR; no JVD; no pretibial edema Abdomen- + bowel sounds, soft, nontender Extremities- no cyanosis; no calf tenderness Neuro- alert, oriented; horizontal nystagmus, most pronounced with left lateral gaze Skin- warm & dry DATA: Hemoglobin 11.4, white count 9000 730, platelet count 258,000. Sodium 135, potassium 4.9, chloride 102, CO2 28, BUN 27, creatinine 1.47, glucose 215. Troponin I normal. Other lab studies as noted. Chest x-ray demonstrated pacemaker, no acute findings. CT of head did not show any acute findings. EKG performed at 1321 reviewed and demonstrated atrial paced rhythm at 62/minute with prolonged AV conduction, no acute findings. ASSESSMENT AND PLAN: Vertigo. Probable BPPV. However, at risk for cerebrovascular events. No acute findings on CT of head without contrast. Has pacemaker, so may not be able to obtain MRI. Symptomatic treatment with meclizine and/or benzodiazepines PRN. PT evaluation for vestibulopathy/Catalina maneuver. Consider further imaging and Neurology consultation if symptoms persist or worsen. Please refer to RODRIGO Greenfield's documentation for discussion of other issues.
[2019-08-21] MEDS ORDERED: LORazepam 1 MG/2 ML VIAL IV STA (17:45)
[2019-08-21] MEDS ORDERED: GLUCAGON FOR INJ 1 MG VIAL SQ PRN (18:08)
[2019-08-21] MEDS ORDERED: GLUCOSE 40% GEL 15 GM TUBE PO PRN (18:08)
[2019-08-21] MEDS ORDERED: CARBOHYDRATES FOR HYPOGLYCEMIA PO PRN (18:08)
[2019-08-21] MEDS ORDERED: MECLIZINE HCL 25 MG TAB PO PRN (18:08)
[2019-08-21] MEDS ORDERED: DEXTROSE 50% 50 ML SYRINGE IV PRN (18:08)
[2019-08-21] MEDS ORDERED: ONDANSETRON INJ 2 MG/ML 2 ML VIAL IV PRN ×2 (18:08)
[2019-08-21] MEDS ORDERED: GLUCOSE 10 TABS/TUBE PO PRN (18:08)
[2019-08-21] MEDS: HydrALAZINE TAB 50 MG TAB PO SCH ×2 (20:40→21:44)
[2019-08-21] MEDS: BuPROPion SR 100 MG TABCR PO SCH (20:40)
[2019-08-21] MEDS: carvediloL 6.25 MG TAB PO SCH (20:41)
[2019-08-21] MEDS: GABAPENTIN 600 MG TAB PO SCH (20:41)
[2019-08-21] MEDS: INSULIN ASPART 100 UNITS/ML 3 ML PEN SC SCH (20:43)
[2019-08-21] MEDS: DOXYCYCLINE SUSP 25 MG/5 ML 60ML PO SCH (20:44)
[2019-08-21] MEDS: INSULIN GLARGINE SOLOSTAR 100 UNITS/ML 3 ML PEN SC SCH (20:44)
--- NOTE | 2019-08-21 22:19 | Electrocardiogram Report ---
Test Reason : Blood Pressure : / mmHG Vent. Rate : 062 BPM Atrial Rate : 062 BPM P-R Int : 320 ms QRS Dur : 092 ms QT Int : 416 ms P-R-T Axes : 000 010 048 degrees QTc Int : 422 ms Atrial-paced rhythm with prolonged AV conduction Cannot rule out Anterior infarct , age undetermined Abnormal ECG When compared with ECG of 11-AUG-2019 12:23, No significant change was found Confirmed by Josse Nance ([id number]) on 08/21/2019 10:19:46 PM Referred By: REFERRED SELF Confirmed By:Josse Nance
[2019-08-22] MEDS ORDERED: MICONAZOLE NITRATE POWDER 43 GM EXT PRN (05:57)
[2019-08-22] MEDS: LEVOTHYROXINE SODIUM 100 MCG TABLET PO SCH (06:05)
[2019-08-22 06:51] LABS: Hematocrit (blood only) 34.9 % (37-47); Hemoglobin 11.3 g/dL (12.0-16.0); Mean Corpuscular Hgb Conc 32.4 g/dL (32-36); Mean Corpuscular Volume 92.6 fL (80-100); Mean Platelet Volume 9.6 fL (7.4-10.4); Platelet Count 239 K/uL (130-400); RDW Coefficient of Variation 13.1 % (11.5-14.5); RDW Standard Deviation 44.5 fL (36.4-46.3); Red Blood Count 3.77 M/uL (4.2-5.4); White Blood Count 11.38 K/uL (4.8-10.8)
[2019-08-22 07:24] LABS: BUN Creatinine Ratio 21.3 (10-20); Creatinine Clr Calc Pharmacy 44.7 ml/min; Est GFR (African American) 37.1; Potassium 4.2 mmol/L (3.5-5.1)
[2019-08-22] MEDS: ACETAMINOPHEN 325 MG TAB PO PRN (08:59)
[2019-08-22] MEDS: INSULIN ASPART 100 UNITS/ML 3 ML PEN SC SCH ×4 (09:46→21:21)
[2019-08-22] MEDS: INSULIN GLARGINE SOLOSTAR 100 UNITS/ML 3 ML PEN SC SCH ×2 (09:46→21:23)
[2019-08-22] MEDS: GABAPENTIN 600 MG TAB PO SCH ×3 (09:47→21:20)
[2019-08-22] MEDS: BuPROPion SR 100 MG TABCR PO SCH ×2 (09:47→21:20)
[2019-08-22] MEDS: carvediloL 6.25 MG TAB PO SCH ×2 (09:47→21:16)
[2019-08-22] MEDS: ATORVASTATIN 40 MG TAB PO SCH (09:47)
[2019-08-22] MEDS: PANTOprazole 40 MG TAB PO SCH (09:48)
[2019-08-22] MEDS: HydrALAZINE TAB 50 MG TAB PO SCH ×3 (09:48→21:16)
[2019-08-22] MEDS: MULTIVITAMIN TAB PO SCH (09:48)
[2019-08-22] MEDS: DOXYCYCLINE SUSP 25 MG/5 ML 60ML PO SCH ×2 (09:49→21:19)
[2019-08-22] MEDS: FUROSEMIDE 40 MG TAB PO SCH (10:00)
--- NOTE | 2019-08-22 14:43 | Hospitalist Progress Note ---
Date of Service August 22, 2019 Assessment & Plan (1) Vertigo: Pt is 58 y/o F with PMH sick sinus syndrome s/p pacemaker, paroxysmal atrial tachycardia, rheumatic mitral regurgitation, DM II, CKD III, HTN, HLD, MINISTERIO, seizure, obesity, depression presented to ER with complaint of dizziness. Patient states this morning woke up and when she turned over in bed she started having dizziness described as the room spinning with associated nausea and vomiting Possible related to benign positional vertigo CT head on admission unremarkable No focal neuro deficit Continue Meclizine prn PT eval pending fall precaution If symptoms worsening, will consider neuro consult Pt was advised not to drive until her dizziness resolved (2) HTN (hypertension): BP stable today Continue carvedilol, hydralazine Continue monitor BP (3) Diabetes mellitus, type II: A1c: 8.3 Continue Home Lantus On Novolog sliding scale per protocol Continue monitor BS (4) HLD (hyperlipidemia): Continue atorvastatin (5) SSS (sick sinus syndrome): S/P Pacemaker. Recent pacer interrogation on 08/11/2019: Underlying sinus rhythm with atrial pacing, generator longevity stable at 13.2 years. No recent arrhythmia episodes detected including no significant VT, atrial tachycardia, or atrial fibrillation events. Patient is atrial paced 49.7% the time and ventricular paced less than 0.1% of the time. Stable (6) Diastolic heart failure: Appears euvolemic today Recent echo 08/19/2019: EF: 55-59%, mild aortic sclerosis, mild mitral regurgitation, mild tricuspid regurgitation Continue Lasix (7) CKD (chronic kidney disease), stage III: BUN: 27, Cr: 1.47. (baseline Cr: 1.4-1.6) Creatinine 1.7 today Avoid nephrotoxic agents when possible (8) Hypothyroidism: TSH: 1.4 Continue levothyroxine (9) MINISTERIO on CPAP: CPAP HS (10) Depression: Continue citalopram, bupropion Stable DVT Prophylaxis Will had on heparin subq if stays in the hospital for another 24 hrs Disposition Possible discharge tomorrow Subjective Pt was seen and examined. Lying in bed with no distress She said that she continues to have dizziness but improves compare to yesterday She said that when she turns her head to fast, she felt dizzy She said that she had nasal congestion recently denies any chest pain, palpitation, fever and SOB Physical Exam Physical Exam: General- No acute distress Head- atraumatic Eyes- PERRL, EOMI, ENT- oropharynx clear Neck- supple, no JVD Lungs- clear to auscultation Heart- regular rhythm; no murmur Abdomen- normal bowel sounds, soft, nontender Extremities- no calf tenderness, +edema Neuro- alert, oriented x 3; PERRL, EOMI; no facial palsy; no dysarthria Skin- warm & dry Results & Data ([facility]) Vital Signs (Past 12 Hours) Vital Signs Temp Pulse Resp BP Pulse Ox 08/22/19 11:08 36.9 C 70 18 126/63 95 08/22/19 07:59 36.8 C 71 18 124/71 97 08/22/19 04:13 36.6 C 66 18 133/72 95 (1) HTN (hypertension) Hypertension type: unspecified Qualified Code(s): I10 - Essential (primary) hypertension
[2019-08-22] MEDS: MECLIZINE 12.5 MG TAB PO PRN ×2 (17:10→21:26)
[2019-08-23] MEDS: LEVOTHYROXINE SODIUM 100 MCG TABLET PO SCH (05:58)
[2019-08-23 08:14] LABS: BUN Creatinine Ratio 24.5 (10-20); Calcium 9.2 mg/dl (8.5-10.1); Creatinine Clr Calc Pharmacy 42.8 ml/min; Est GFR (African American) 35.1; Est GFR (Non-African American) 30.3; Potassium 4.3 mmol/L (3.5-5.1)
[2019-08-23] MEDS: HydrALAZINE TAB 50 MG TAB PO SCH ×3 (08:36→20:27)
[2019-08-23] MEDS: carvediloL 6.25 MG TAB PO SCH ×2 (08:36→20:28)
[2019-08-23] MEDS: DOXYCYCLINE SUSP 25 MG/5 ML 60ML PO SCH ×2 (08:36→20:27)
[2019-08-23] MEDS: BuPROPion SR 100 MG TABCR PO SCH ×2 (08:37→20:28)
[2019-08-23] MEDS: ATORVASTATIN 40 MG TAB PO SCH (08:37)
[2019-08-23] MEDS: INSULIN GLARGINE SOLOSTAR 100 UNITS/ML 3 ML PEN SC SCH ×2 (08:37→21:06)
[2019-08-23] MEDS: PANTOprazole 40 MG TAB PO SCH (08:37)
[2019-08-23] MEDS: MULTIVITAMIN TAB PO SCH (08:37)
[2019-08-23] MEDS: FUROSEMIDE 40 MG TAB PO SCH (08:37)
[2019-08-23] MEDS: INSULIN ASPART 100 UNITS/ML 3 ML PEN SC SCH ×4 (08:37→21:07)
[2019-08-23] MEDS: GABAPENTIN 600 MG TAB PO SCH ×3 (08:41→20:28)
[2019-08-23] MEDS ORDERED: FUROSEMIDE 40 MG TAB PO SCH (09:00)
[2019-08-23] MEDS ORDERED: FUROSEMIDE 20 MG TAB PO SCH (09:00)
[2019-08-23] MEDS: MECLIZINE 12.5 MG TAB PO PRN (09:11)
[2019-08-23] MEDS ORDERED: LORazepam 0.5 MG TAB PO SCH (15:00)
[2019-08-23] MEDS: ACETAMINOPHEN 325 MG TAB PO PRN (16:07)
[2019-08-23] MEDS: ONDANSETRON 4 MG TAB PO PRN (16:07)
--- NOTE | 2019-08-23 18:09 | Magnetic Resonance Report ---
MR brain IAC wo con HISTORY: 58 years-old Female Dizziness acute dizziness with tinnitus. History of endometrial and ski n cancer COMPARISON: Head CT 08/21/2019 TECHNIQUE: Multiplanar multisequence MRI of the brain was obtained without the use of IV contrast uti lizing internal auditory canal mass protocol FINDINGS: Military Technician localizer images demonstrate no gross extracranial abnormality. There is no restricted diffusio n to suggest acute or subacute infarct. Midline structures including the corpus callosum, brainstem, optic chiasm, pituitary and pineal glands appear unremarkable the sagittal T1 series. There is no cer ebellar tonsillar herniation. Degenerative changes are noted about the imaged cervical spine. No acute intracranial hemorrhage, midline shift, abnormal extra axial collection, hydrocephalus or in tracranial mass. Minimal patchy T2/FLAIR hyperintensities about the subcortical and to lesser extent periventricular white matter of the bilateral cerebral hemispheres suggestive of probable chronic kristan rovascular ischemic disease. The bilateral internal auditory canals, 7th and 8th cranial nerves appea r unremarkable. No mass of the cerebellar pontine angles. The cisternal portions of the 5th cranial n erves appear unremarkable. Flow voids at the level the skull base appear patent. Trace right mastoid effusion. 1.2 cm focus of polypoid mucosal thickening involves the lateral wall of the left sphenoid sinus. Mild mucosal thickening of the nasal turbinates. Prior bilateral lens replacement. The skull a nd soft tissues are unremarkable. IMPRESSION: 1. No acute intracranial abnormality. 2. Unremarkable appearance of the bilateral internal auditory canals, VII and VIII cranial nerves. 3. Findings suggest mild chronic microvascular ischemic disease. ACT 112: Negative or not required by law. The above report was generated using voice recognition software. It may contain grammatical, syntax o r spelling errors. Electronically signed by: Jose Ghosh M.D. 08/23/2019 6:08 PM
--- NOTE | 2019-08-23 18:44 | Hospitalist Progress Note ---
Date of Service August 23, 2019 Assessment & Plan (1) Vertigo: Pt is 58 y/o F with PMH sick sinus syndrome s/p pacemaker, paroxysmal atrial tachycardia, rheumatic mitral regurgitation, DM II, CKD III, HTN, HLD, MINISTERIO, seizure, obesity, depression presented to ER with complaint of dizziness. Patient states this morning woke up and when she turned over in bed she started having dizziness described as the room spinning with associated nausea and vomiting Possible related to benign positional vertigo CT head on admission unremarkable MRI done today showed no acute intracranial abnormality. Unremarkable appearance of the bilateral internal auditory canals, VII and VIII cranial nerves. No focal neuro deficit Continue Meclizine prn Catalina maneuver done with PT and seems to improve dizziness fall precaution Pt was advised not to drive until her dizziness resolved (2) HTN (hypertension): BP stable today Continue carvedilol, hydralazine Continue monitor BP (3) Diabetes mellitus, type II: A1c: 8.3 Continue Home Lantus On Novolog sliding scale per protocol Continue monitor BS (4) HLD (hyperlipidemia): Continue atorvastatin (5) SSS (sick sinus syndrome): S/P Pacemaker. Recent pacer interrogation on 08/11/2019: Underlying sinus rhythm with atrial pacing, generator longevity stable at 13.2 years. No recent arrhythmia episodes detected including no significant VT, atrial tachycardia, or atrial fibrillation events. Patient is atrial paced 49.7% the time and ventricular paced less than 0.1% of the time. Stable (6) Diastolic heart failure: Appears euvolemic today Recent echo 08/19/2019: EF: 55-59%, mild aortic sclerosis, mild mitral regurgitation, mild tricuspid regurgitation Continue Lasix (7) CKD (chronic kidney disease), stage III: BUN: 27, Cr: 1.47. (baseline Cr: 1.4-1.6) Creatinine 1.7 today Avoid nephrotoxic agents when possible (8) Hypothyroidism: TSH: 1.4 Continue levothyroxine (9) MINISTERIO on CPAP: CPAP HS (10) Depression: Continue citalopram, bupropion Stable DVT Prophylaxis Will had on heparin subq if stays in the hospital for another 24 hrs Disposition Possible discharge tomorrow Subjective Pt was seen and examined Lying in bed with no distress Pt said that she continues to feel dizzy and unsteady Denies any chest pain, palpitation, dizziness and SOB Physical Exam Physical Exam: General- No acute distress Head- atraumatic Eyes- PERRL, EOMI, ENT- oropharynx clear Neck- supple, no JVD Lungs- clear to auscultation Heart- regular rhythm; no murmur Abdomen- normal bowel sounds, soft, nontender Extremities- no calf tenderness, +edema Neuro- alert, oriented x 3; PERRL, EOMI; no facial palsy; no dysarthria Skin- warm & dry Results & Data ([facility]) Vital Signs (Past 12 Hours) Vital Signs Temp Pulse Pulse Resp BP Pulse Ox 08/23/19 15:26 79 08/23/19 15:14 36.6 C 64 19 139/70 96 08/23/19 09:00 80 08/23/19 07:51 36.7 C 66 18 138/82 96 (1) HTN (hypertension) Hypertension type: unspecified Qualified Code(s): I10 - Essential (primary) hypertension
[2019-08-23] MEDS: HEPARIN SOD 5,000 UNIT/0.5 ML VIAL SQ SCH (21:08)
[2019-08-24] MEDS: HEPARIN SOD 5,000 UNIT/0.5 ML VIAL SQ SCH ×3 (05:40→20:43)
[2019-08-24] MEDS: LEVOTHYROXINE SODIUM 100 MCG TABLET PO SCH (05:40)
[2019-08-24 06:43] LABS: Hematocrit (blood only) 34.2 % (37-47); Hemoglobin 11.1 g/dL (12.0-16.0); Mean Corpuscular Hemoglobin 30.5 pg (25-34); Mean Corpuscular Hgb Conc 32.5 g/dL (32-36); Mean Platelet Volume 9.9 fL (7.4-10.4); Platelet Count 204 K/uL (130-400); RDW Standard Deviation 45.1 fL (36.4-46.3); Red Blood Count 3.64 M/uL (4.2-5.4); White Blood Count 8.98 K/uL (4.8-10.8)
[2019-08-24 07:06] LABS: BUN Creatinine Ratio 23.9 (10-20); Creatinine Clr Calc Pharmacy 39.2 ml/min; Est GFR (Non-African American) 27.6; Potassium 4.2 mmol/L (3.5-5.1)
[2019-08-24] MEDS: DOXYCYCLINE SUSP 25 MG/5 ML 60ML PO SCH ×2 (08:11→20:45)
[2019-08-24] MEDS: FUROSEMIDE 40 MG TAB PO SCH (08:11)
[2019-08-24] MEDS: carvediloL 6.25 MG TAB PO SCH ×2 (08:11→20:42)
[2019-08-24] MEDS: ATORVASTATIN 40 MG TAB PO SCH (08:11)
[2019-08-24] MEDS: HydrALAZINE TAB 50 MG TAB PO SCH ×3 (08:11→20:42)
[2019-08-24] MEDS: INSULIN ASPART 100 UNITS/ML 3 ML PEN SC SCH ×4 (08:12→20:45)
[2019-08-24] MEDS: MULTIVITAMIN TAB PO SCH (08:12)
[2019-08-24] MEDS: BuPROPion SR 100 MG TABCR PO SCH ×2 (08:12→20:43)
[2019-08-24] MEDS: GABAPENTIN 600 MG TAB PO SCH ×3 (08:12→20:43)
[2019-08-24] MEDS: PANTOprazole 40 MG TAB PO SCH (08:12)
[2019-08-24] MEDS: INSULIN GLARGINE SOLOSTAR 100 UNITS/ML 3 ML PEN SC SCH ×2 (08:18→20:45)
[2019-08-24] MEDS: ONDANSETRON 4 MG TAB PO PRN (08:54)
[2019-08-24] MEDS: MECLIZINE HCL 25 MG TAB PO PRN ×2 (08:54→15:26)
--- NOTE | 2019-08-24 19:28 | Hospitalist Progress Note ---
Date of Service August 24, 2019 Assessment & Plan (1) Vertigo: Pt is 58 y/o F with PMH sick sinus syndrome s/p pacemaker, paroxysmal atrial tachycardia, rheumatic mitral regurgitation, DM II, CKD III, HTN, HLD, MINISTERIO, seizure, obesity, depression presented to ER with complaint of dizziness. Patient states this morning woke up and when she turned over in bed she started having dizziness described as the room spinning with associated nausea and vomiting Possible related to benign positional vertigo CT head on admission unremarkable MRI done today showed no acute intracranial abnormality. Unremarkable appearance of the bilateral internal auditory canals, VII and VIII cranial nerves. No focal neuro deficit Continue Meclizine prn Catalina maneuver done with PT and seems to improve dizziness yesterday fall precaution Pt was advised not to drive until her dizziness resolved (2) HTN (hypertension): BP stable today Continue carvedilol, hydralazine Continue monitor BP (3) Diabetes mellitus, type II: A1c: 8.3 Continue Home Lantus On Novolog sliding scale per protocol Continue monitor BS (4) HLD (hyperlipidemia): Continue atorvastatin (5) SSS (sick sinus syndrome): S/P Pacemaker. Recent pacer interrogation on 08/11/2019: Underlying sinus rhythm with atrial pacing, generator longevity stable at 13.2 years. No recent arrhythmia episodes detected including no significant VT, atrial tachycardia, or atrial fibrillation events. Patient is atrial paced 49.7% the time and ventricular paced less than 0.1% of the time. Stable (6) Diastolic heart failure: Appears euvolemic today Recent echo 08/19/2019: EF: 55-59%, mild aortic sclerosis, mild mitral regur gitation, mild tricuspid regurgitation Continue Lasix (7) CKD (chronic kidney disease), stage III: BUN: 27, Cr: 1.47. (baseline Cr: 1.4-1.6) Creatinine 1.9 today Will hold diuretic Avoid nephrotoxic agents when possible Check BMP in am (8) Hypothyroidism: TSH: 1.4 Continue levothyroxine (9) MINISTERIO on CPAP: CPAP HS (10) Depression: Continue citalopram, bupropion Stable DVT Prophylaxis On Heparin subq Disposition Possible discharge tomorrow Subjective Pt was seen and examined Pt said that she continues to have the dizziness She said that yesterday after working to therapy the dizziness improves but she said today after therapy, her dizziness worsening She said that the meclizine helps with the dizziness Denies any chest pain, palpitation and sob Physical Exam Physical Exam: General- No acute distress Head- atraumatic Eyes- PERRL, EOMI, ENT- oropharynx clear Neck- supple, no JVD Lungs- clear to auscultation Heart- regular rhythm; no murmur Abdomen- normal bowel sounds, soft, nontender Extremities- no calf tenderness, +edema Neuro- alert, oriented x 3; PERRL, EOMI; no facial palsy; no dysarthria Skin- warm & dry Results & Data ([facility]) Vital Signs (Past 12 Hours) Vital Signs Temp Pulse Pulse Resp BP BP Pulse Ox 08/24/19 19:25 36.8 C 65 18 144/61 H 95 08/24/19 15:38 36.7 C 85 18 146/81 H 96 08/24/19 11:34 36.8 C 66 18 130/73 97 08/24/19 07:45 67 08/24/19 07:41 37.0 C 66 18 143/80 H 98 (1) HTN (hypertension) Hypertension type: unspecified Qualified Code(s): I10 - Essential (primary) hypertension
[2019-08-25] MEDS: HEPARIN SOD 5,000 UNIT/0.5 ML VIAL SQ SCH ×2 (05:59→14:03)
[2019-08-25] MEDS: LEVOTHYROXINE SODIUM 100 MCG TABLET PO SCH (05:59)
[2019-08-25 08:05] LABS: Calcium 9.7 mg/dl (8.5-10.1); Creatinine Clr Calc Pharmacy 42.1 ml/min; Est GFR (African American) 34.6; Est GFR (Non-African American) 29.9; Potassium 4.2 mmol/L (3.5-5.1)
[2019-08-25] MEDS: ATORVASTATIN 40 MG TAB PO SCH (08:16)
[2019-08-25] MEDS: MULTIVITAMIN TAB PO SCH (08:16)
[2019-08-25] MEDS: carvediloL 6.25 MG TAB PO SCH (08:16)
[2019-08-25] MEDS: HydrALAZINE TAB 50 MG TAB PO SCH ×2 (08:16→14:02)
[2019-08-25] MEDS: GABAPENTIN 600 MG TAB PO SCH ×2 (08:16→14:03)
[2019-08-25] MEDS: DOXYCYCLINE SUSP 25 MG/5 ML 60ML PO SCH (08:16)
[2019-08-25] MEDS: PANTOprazole 40 MG TAB PO SCH (08:16)
[2019-08-25] MEDS: BuPROPion SR 100 MG TABCR PO SCH (08:17)
[2019-08-25] MEDS: INSULIN GLARGINE SOLOSTAR 100 UNITS/ML 3 ML PEN SC SCH (08:20)
[2019-08-25] MEDS: INSULIN ASPART 100 UNITS/ML 3 ML PEN SC SCH ×2 (08:20→12:32)
[2019-08-25] MEDS: MECLIZINE HCL 25 MG TAB PO PRN ×2 (08:38→14:02)
--- NOTE | 2019-08-25 13:38 | Hospitalist Progress Note ---
Date of Service August 25, 2019 Assessment & Plan (1) Vertigo: Pt is 58 y/o F with PMH sick sinus syndrome s/p pacemaker, paroxysmal atrial tachycardia, rheumatic mitral regurgitation, DM II, CKD III, HTN, HLD, MINISTERIO, seizure, obesity, depression presented to ER with complaint of dizziness. Dizziness is in the form of spinning head with associated nausea and vomiting Possible related to benign positional vertigo CT head on admission unremarkable MRI done today showed no acute intracranial abnormality. Unremarkable appearance of the bilateral internal auditory canals, VII and VIII cranial nerves. No focal neuro deficit on clinical examination Continue Meclizine prn Catalina maneuver done with PT and seems to improve dizziness yesterday Has been getting physical therapy with some improvement and was advised to have continued physical therapy Clinically much better and symptomatically improved Will need a walker to go home We will discharge home today (2) HTN (hypertension): BP stable today Continue carvedilol, hydralazine Continue monitor BP (3) Diabetes mellitus, type II: A1c: 8.3 Continue Home Lantus On Novolog sliding scale per protocol Continue monitor BS (4) HLD (hyperlipidemia): Continue atorvastatin (5) SSS (sick sinus syndrome): S/P Pacemaker. Recent pacer interrogation on 08/11/2019: Underlying sinus rhythm with atrial pacing, generator longevity stable at 13.2 years. No recent arrhythmia episodes detected including no significant VT, atrial tachycardia, or atrial fibrillation events. Patient is atrial paced 49.7% the time and ventricular paced less than 0.1% of the time. Paced rhythm (6) Diastolic heart failure: Appears euvolemic today Recent echo 08/19/2019: EF: 55-59%, mild aortic sclerosis, mild mitral regurgitation, mild tricuspid regurgitation Continue Lasix as an outpatient (7) CKD (chronic kidney disease), stage III: BUN: 27, Cr: 1.47. (baseline Cr: 1.4-1.6) Creatinine 1.9 today Will hold diuretic Avoid nephrotoxic agents when possible Check BMP in am ; creatinine has been improving with a level of 1.81 on 08/25/2019 (8) Hypothyroidism: TSH: 1.4 Continue levothyroxine (9) MINISTERIO on CPAP: CPAP HS (10) Depression: Continue citalopram, bupropion Stable DVT Prophylaxis On Heparin subq Disposition We will discharge her home today Subjective 08/25/2019 The patient was seen and examined in medical telemetry unit She still complains to have some dizziness on ambulation but much improved Did well with physical therapy and wants to go home Review of Systems Review of Systems: All systems reviewed & are unremarkable except as noted in HPI & below Neurologic: + dizziness (With ambulation) Physical Exam Physical Exam: Walking with a walker without any significant symptoms Constitutional: well developed, well nourished and + obese; no acute distress and not ill appearing Eyes: PERRL, conjunctivae normal, anicteric sclerae ENMT: external ear and nose normal, oropharynx normal Neck: trachea midline, no thyromegaly Respiratory: normal respiratory effort; no respiratory distress Auscultation: lungs clear to auscultation bilaterally Cardiovascular: Rate/Rhythm: regular rate and regular rhythm Heart Sounds: no murmur Gastrointestinal (Abdomen): Inspection/Auscultation: abdomen normal to inspection and normal bowel sounds Percussion/Palpation: abdomen soft; abdomen nontender Musculoskeletal: No acute arthritis in any joints Neurologic: moves all extremities; no focal motor deficits Lymphatic: no cervical or axillary lymphadenopathy Results & Data ([facility]) Vital Signs (Past 12 Hours) Vital Signs Temp Pulse Pulse Resp BP BP Pulse Ox 08/25/19 11:22 36.8 C 72 18 139/80 95 08/25/19 07:32 60 08/25/19 07:00 36.5 C 60 18 158/83 H 96 08/25/19 03:33 36.2 C L 60 18 132/56 L 96 Laboratory Results [facility] 08/25/19 07:06 Sodium 139 Potassium 4.2 Chloride 108 H Carbon Dioxide 27 BUN 43 H Creatinine 1.81 H Glucose 122 H Calcium 9.7 Medications Administered Current Inpatient Medications Acetaminophen (Tylenol) 650 mg PO Q4H PRN PRN Reason: Pain or Fever Stop: 09/20/19 18:07 Last Admin: 08/23/19 16:07 Dose: 650 mg Documented by: Atorvastatin Calcium (Lipitor) 40 mg PO DAILY [facility] Stop: 09/21/19 08:59 Last Admin: 08/25/19 08:16 Dose: 40 mg Documented by: Bupropion HCl (Wellbutrin-Sr) 100 mg PO BID [facility] Stop: 09/20/19 20:59 Last Admin: 08/25/19 08:17 Dose: 100 mg Documented by: Carvedilol (Coreg) 6.25 mg PO BID [facility] Stop: 09/20/19 20:59 Last Admin: 08/25/19 08:16 Dose: 6.25 mg Documented by: Dextrose (Dextrose 50%) 25 - 50 ml IV UD PRN; Protocol PRN Reason: Hypoglycemia Protocol Stop: 09/20/19 18:07 Doxycycline Monohydrate (Doxycycline Susp) 20 mg PO BID [facility] Stop: 09/20/19 20:59 Last Admin: 08/25/19 08:16 Dose: 20 mg Documented by: Furosemide (Lasix) 20 mg PO MoWeFr@0900 [facility] Stop: 09/22/19 08:59 Last Admin: 08/23/19 08:36 Dose: 20 mg Documented by: Furosemide (Lasix) 40 mg PO QAM [facility] Stop: 09/21/19 09:29 Last Admin: 08/24/19 08:11 Dose: 40 mg Documented by: Gabapentin (Neurontin) 600 mg PO TID [facility] Stop: 09/20/19 20:59 Last Admin: 08/25/19 08:16 Dose: 600 mg Documented by: Glucagon (Glucagen) 1 mg SQ UD PRN; Protocol PRN Reason: Hypoglycemia Protocol Stop: 09/20/19 18:07 Glucose (Dex4 Glucose) 4 - 8 tabs PO UD PRN; Protocol PRN Reason: Hypoglycemia Protocol Stop: 09/20/19 18:07 Glucose (Glucose 40%) 15 - 30 gm PO UD PRN; Protocol PRN Reason: Hypoglycemia Protocol Stop: 09/20/19 18:07 Heparin Sodium (Porcine) (Heparin Sodium (Porcine)) 5,000 units SQ Q8 [facility] Stop: 09/22/19 21:59 Last Admin: 08/25/19 05:59 Dose: 5,000 units Documented by: Hydralazine HCl (Apresoline) 50 mg PO TID [facility] Stop: 09/20/19 18:07 Last Admin: 08/25/19 08:16 Dose: 50 mg Documented by: Insulin Aspart (Novolog Flexpen) 0 units SC ACHS [facility] Stop: 09/20/19 20:59 Last Admin: 08/25/19 12:32 Dose: 7 units Documented by: Insulin Glargine (Lantus Solostar Pen) 20 units SC BID [facility] Stop: 09/20/19 20:59 Last Admin: 08/25/19 08:20 Dose: 20 units Documented by: Levothyroxine Sodium (Synthroid) 100 mcg PO DAILYBB [facility] Stop: 09/21/19 06:29 Last Admin: 08/25/19 05:59 Dose: 100 mcg Documented by: Meclizine HCl (Antivert) 25 mg PO Q4H PRN PRN Reason: Vertigo Stop: 09/20/19 18:07 Last Admin: 08/25/19 08:38 Dose: 25 mg Documented by: Miconazole Nitrate (Desenex) 1 appln EXT PRN PRN PRN Reason: Affected Skin Folds Stop: 09/21/19 05:56 Miscellaneous (Carbohydrates For Hypoglycemia) 15 - 30 gm PO UD PRN PRN Reason: Hypoglycemia Protocol Stop: 09/20/19 18:07 Multivitamins (Multivitamin Tab) 1 tab PO DAILY [facility] Stop: 09/21/19 08:59 Last Admin: 08/25/19 08:16 Dose: 1 tab Documented by: Ondansetron HCl (Zofran) 4 mg IV Q6H PRN PRN Reason: Nausea Stop: 09/20/19 18:07 Last Admin: 08/23/19 10:44 Dose: 4 mg Documented by: Ondansetron HCl (Zofran Tab) 4 mg PO Q6H PRN PRN Reason: Nausea Stop: 09/22/19 12:06 Last Admin: 08/24/19 08:54 Dose: 4 mg Documented by: Pantoprazole Sodium (Protonix) 40 mg PO DAILY [facility] Stop: 09/21/19 08:59 Last Admin: 08/25/19 08:16 Dose: 40 mg Documented by: (1) HTN (hypertension) Hypertension type: unspecified Qualified Code(s): I10 - Essential (primary) hypertension
--- NOTE | 2019-08-26 08:07 | Discharge Summary ---
Date of Service August 26, 2019 Admission HPI Per Admitting Provider Pt is 58 y/o F with PMH sick sinus syndrome s/p pacemaker, paroxysmal atrial tachycardia, rheumatic mitral regurgitation, DM II, CKD III, HTN, HLD, MINISTERIO, seizure, obesity, depression presented to ER with complaint of dizziness. Patient states this morning woke up and when she turned over in bed she started having dizziness described as the room spinning with associated nausea. Patient states attempted to walk however was unable to secondary to dizziness. Also complains of vomiting. Dizziness worsened with any type of movement. Patient states feels a little better when she closes her eyes. Reports this morning had some headache which has since resolved. States some mild nasal congestion past couple days which she related to allergies. Denies any history of head injury, falls. Denies history of vertigo before. Is reported EMS gave patient Zofran and Ativan without much relief. Patient was started on Coreg 6.25 on 08/13/[address] Stevenson. Patient denies any other new medications or [id number] medications. Denies alcohol or recreational drug consumption. Patient was seen in ER 08/11/2019 for chest pain, palpitations, fluid overload and was given 1 dose IV Lasix. She has since followed up with cardiology who kept her oral Lasix the same. Patient reports improvement of lower extremity edema. Denies fever/chills, diaphoresis, diarrhea, constipation, syncope, vision changes, neck pain, CP, SOB, orthopnea, palpitations, cough, sore throat, choking, otalgia, rhinorrhea, abdominal pain, paresthesias, weakness, extremity weakness, extremity edema, rashes, urinary symptoms. In ER patient given Benadryl 50 mg IV, Zofran 4 mg IV, meclizine 25 mg p.o., Valium 2.5 mg IV, Compazine IV, hydralazine 10 mg IV, NSS 500 mL bolus with reported continued dizziness. Admission Exam Per Admitting Provider Physical Exam: General: no distress at this time, pt resting with eyes close, obese Head: normocephalic, atraumatic Eyes: PERRL, EOM's intact, +horizontal nystagmus, conjunctiva non-injected, anicteric ENT: normal inspection external ears, nose, mucous membranes moist Neck: supple, trachea midline, non-tender Lungs: clear, no respiratory distress, no wheezing/rhonchi/rales CV: RRR, no murmur, 1+ pretibial edema Abd: protuberant, normal BS, soft, non-tender Ext: no cyanosis, no calf tenderness Neuro: +sleepy, does awaken to name and is A&O x 3, +horizontal nystagmus, +dizziness/nausea with sitting up, no other focal deficits noted, normal affect Skin: warm, dry Principal Diagnosis Dizziness likely secondary to labyrinthine disease-improved, hypertension, type 2 diabetes Discharge Exam Constitutional well developed, well nourished and + obese; no acute distress and not ill appearing Eyes PERRL, conjunctivae normal, anicteric sclerae ENMT external ear and nose normal, oropharynx normal Neck trachea midline, no thyromegaly Respiratory normal respiratory effort; no respiratory distress Auscultation: lungs clear to auscultation bilaterally Cardiovascular Rate/Rhythm: regular rate and regular rhythm Heart Sounds: no murmur Gastrointestinal (Abdomen) Inspection/Auscultation: abdomen normal to inspection and normal bowel sounds Percussion/Palpation: abdomen soft; abdomen nontender Neurologic moves all extremities; no focal motor deficits Lymphatic no cervical or axillary lymphadenopathy Discharge Data Allergies Allergy/AdvReac Type Severity Reaction Status Date / Time CHIDI Inhibitors AdvReac Mild COUGH Verified 08/11/19 13:05 Consultations 08/21/19 16:29 ED Decision to Admit Stat 08/21/19 18:08 Consult Case Management - Discharge Planning Routine Ordered Studies 08/21/19 13:54 CT head/brain wo con Stat 08/23/19 13:37 MR brain IAC wo con Routine Hospital Course (1) Vertigo: Pt is 58 y/o F with PMH sick sinus syndrome s/p pacemaker, paroxysmal atrial tachycardia, rheumatic mitral regurgitation, DM II, CKD III, HTN, HLD, MINISTERIO, seizure, obesity, depression presented to ER with complaint of dizziness. Dizziness is in the form of spinning head with associated nausea and vomiting Possible related to benign positional vertigo CT head on admission unremarkable MRI done today showed no acute intracranial abnormality. Unremarkable appearance of the bilateral internal auditory canals, VII and VIII cranial nerves. No focal neuro deficit on clinical examination Continue Meclizine prn Catalina maneuver done with PT and seems to improve dizziness yesterday Has been getting physical therapy with some improvement and was advised to have continued physical therapy Clinically much better and symptomatically improved Will need a walker to go home We will discharge home today (2) HTN (hypertension): BP stable today Continue carvedilol, hydralazine Continue monitor BP (3) Diabetes mellitus, type II: A1c: 8.3 Continue Home Lantus On Novolog sliding scale per protocol Continue monitor BS (4) HLD (hyperlipidemia): Continue atorvastatin (5) SSS (sick sinus syndrome): S/P Pacemaker. Recent pacer interrogation on 08/11/2019: Underlying sinus rhythm with atrial pacing, generator longevity stable at 13.2 years. No recent arrhythmia episodes detected including no significant VT, atrial tachycardia, or atrial fibrillation events. Patient is atrial paced 49.7% the time and ventricular paced less than 0.1% of the time. Paced rhythm (6) Diastolic heart failure: Appears euvolemic today Recent echo 08/19/2019: EF: 55-59%, mild aortic sclerosis, mild mitral regurgitation, mild tricuspid regurgitation Continue Lasix as an outpatient (7) CKD (chronic kidney disease), stage III: BUN: 27, Cr: 1.47. (baseline Cr: 1.4-1.6) Creatinine 1.9 today Will hold diuretic Avoid nephrotoxic agents when possible Check BMP in am ; creatinine has been improving with a level of 1.81 on 08/25/2019 (8) Hypothyroidism: TSH: 1.4 Continue levothyroxine (9) MINISTERIO on CPAP: CPAP HS (10) Depression: Continue citalopram, bupropion Stable DVT Prophylaxis On Heparin subq Disposition We will discharge her home today Total Time Total Time Spent Total Time Spent (In Minutes): 35 minutes Total Time Includes: Examination of the Patient, Discharge Planning, Medication Reconciliation and Communication With Other Providers Discharge Plan Discharge Items Patient Disposition: Home - Home Health Services Reason For Visit: VERTIGO Discharge Diagnosis: Dizziness likely secondary to labyrinthine disease-improved, hypertension, type 2 diabetes Condition on Discharge: Good Activity: Resume your previous activity Activity Comment: Advised not to drive until cleared from PCP and the dizziness is resolved Non-emergency contact: Primary Care Provider Call non-emergency contact if: you have any medication questions Follow-up/Referrals: Luis Fernando Rojas MD [Primary Care Provider] - 08/30/19 2:55 pm ([facility] specialist office will give you a call for appointment Luis A at Home visit- 08/27/2019 at 10:30 am at your home.) Diet: Regular Addtl Attending Provider Instructions: Please take precaution to avoid fall Use walker when necessary Try not to turn quickly Pending Studies at Discharge: No Stand-Alone Forms: My [facility], Smoking Cessation Medications and DC Order Prescriptions: New meclizine 25 mg Tablet 25 mg PO Q4H PRN (Reason: dizziness) 14 Days Qty: 30 RF: 0 Continued doxycycline hyclate 20 mg Tablet 20 mg PO BID RF: 0 furosemide 40 mg Tablet 20 mg PO UD RF: 0 furosemide 40 mg tablet 40 mg PO UD RF: 0 carvedilol 6.25 mg Tablet 6.25 mg PO BID RF: 0 multivitamin Tablet 1 tab PO DAILY RF: 0 gabapentin 600 mg Tablet 600 mg PO TID RF: 0 Lantus U-100 Insulin 100 unit/mL Solution 20 unit SUBCUT BID RF: 0 citalopram 40 mg Tablet 40 mg PO DAILY RF: 0 levothyroxine [Synthroid] 100 mcg Tablet 100 mcg PO DAILY RF: 0 hydralazine 50 mg Tablet 50 mg PO TID RF: 0 Humalog U-100 Insulin 100 unit/mL Cartridge 1 sliding scale dose SUBCUT UD RF: 0 atorvastatin 40 mg Tablet 40 mg PO DAILY RF: 0 bupropion HCl [Wellbutrin SR] 100 mg Tablet Sustained-Release 12 Hr 100 mg PO BID RF: 0 pantoprazole 40 mg Tablet,Delayed Release (Dr/Ec) 40 mg PO DAILY RF: 0 Discharge Orders: Discharge Order (Routine); Ordered 08/25/19 Ordered By: Romario Minor Admission Data Admit Date/Time: 08/23/19 18:47 Attending Provider: Romario Minor Admit Provider: Williams Cleveland Primary Care Provider: Luis Fernando Rojas Other Providers: Williams Cleveland ; Emmanuel Chapman ; [facility] Other Interventions: Discharge Summary Assessment (RN) Last Done: 08/25/19 14:26 DC Date/Time DO NOT enter until pt leaves facility: 08/25/19 16:15
== END 2019-08-25 16:15 | disposition home health service (06) | DRG 149 ==
LOC: 2N 13:14 → ED 13:14 → SUATTDRO 16:47 → 2N 17:16 → SUATTDRO 08-23 18:47

== ENCOUNTER 2020-11-02 12:08 | Inpatient (IN) ==
[2020-11-02 13:12] LABS: Basophils # (auto) 0.05 K/uL (0-0.2); Basophils % (auto) 0.5 %; Eosinophils # (auto) 0.17 K/uL (0-0.5); Eosinophils % (auto) 1.8 %; Hematocrit (blood only) 37.1 % (37-47); Hemoglobin 12.2 g/dL (12.0-16.0); Immature Granulocytes # (auto) 0.01 K/uL (0.00-0.02); Immature Granulocytes % (auto) 0.1 %; Lymphocytes # (auto) 3.17 K/uL (1.2-3.4); Lymphocytes % (auto) 33.6 %; Mean Corpuscular Hemoglobin 30.7 pg (25-34); Mean Corpuscular Hgb Conc 32.9 g/dL (32-36); Mean Corpuscular Volume 93.5 fL (80-100); Monocytes # (auto) 0.72 K/uL (0.11-0.59); Monocytes % (auto) 7.6 %; Neutrophils # (auto) 5.31 K/uL (1.4-6.5); Neutrophils % (auto) 56.4 %; Platelet Count 239 K/uL (130-400); RDW Coefficient of Variation 12.9 % (11.5-14.5); RDW Standard Deviation 44.2 fL (36.4-46.3); Red Blood Count 3.97 M/uL (4.2-5.4); White Blood Count 9.43 K/uL (4.8-10.8)
--- NOTE | 2020-11-02 13:20 | XRay Report ---
XR chest 1V portable CLINICAL HISTORY: Atypical chest pain. COMPARISON STUDY: Chest radiograph August 21, 2019. FINDINGS: Lung volumes are mildly diminished. A dual-lead left subclavian pacemaker is in place. Ther e is cardiomegaly. There is slight interstitial thickening. No consolidation is identified. IMPRESSION: Cardiomegaly with pulmonary vascular congestion. ACT 112: Negative or not required by law. Electronically signed by: Mihir Loaiza M.D. 11/02/2020 1:19 PM
--- NOTE | 2020-11-02 13:29 | Emergency Department Note ---
History of Present Illness General Chief Complaint: Chest Pain Stated Complaint: CHEST PAIN-PAIN IN L [id number] RE[facility] Time Seen by Provider: 11/02/20 12:34 History of Present Illness Provider Complaint: chest pain Onset (ago): day(s) 3 Duration: progressively worsening Onset: during rest Pain Location: substernal and left chest Pain Radiation: LUE Severity: moderate Maximum Pain Intensity: 4 Current Pain Intensity: 4 Quality: + tightness and + sharp Relieved By: + nothing Exacerbated By: + inspiration Context: no recent illness, no recent surgery, no recent immobilization, no recent travel, no trauma/injury, no new medications and no history of DVT/PE Associated symptoms: + dyspnea and + other (Headache and dizziness); no nausea, no vomiting, no diaphoresis, no sense of impending doom, no syncope, no palpita tions, no fever, no cough and no leg swelling Home Medications Medication Instructions Recorded Confirmed Type Humalog U-100 Insulin 1 sliding scale dose SUBCUT UD 07/05/18 11/02/20 History Lantus U-100 Insulin 23 unit SUBCUT QAM 07/05/18 11/02/20 History atorvastatin 40 mg PO PM 07/05/18 11/02/20 History bupropion HCl [Wellbutrin SR] 100 mg PO BID 07/05/18 11/02/20 History citalopram 40 mg PO QAM 07/05/18 11/02/20 History gabapentin 600 mg PO TID 07/05/18 11/02/20 History hydralazine 50 mg PO TID 07/05/18 11/02/20 History levothyroxine [Synthroid] 100 mcg PO QAM 07/05/18 11/02/20 History multivitamin 1 tab PO QAM 07/05/18 11/02/20 History pantoprazole 40 mg PO QAM 07/05/18 11/02/20 History doxycycline hyclate 20 mg PO BID 08/11/19 11/02/20 History carvedilol 6.25 mg PO BID 08/21/19 11/02/20 History furosemide 20 mg PO UD 08/21/19 11/02/20 History furosemide 40 mg PO UD 08/21/19 11/02/20 History semaglutide [Ozempic] 4 mg SUBCUT WK 11/02/20 11/02/20 History Allergies Allergy/AdvReac Type Severity Reaction Status Date / Time CHIDI Inhibitors AdvReac Mild COUGH Verified 11/02/20 14:17 Past Med/Surg History Medical History (Updated 11/02/20 @ 14:38 by Leonidas Schaefer) CKD (chronic kidney disease), stage III Depression Diabetes mellitus, type II Diastolic heart failure Difficult airway for intubation Endometrial carcinoma (02/23/13) "S/P hysterectomy " History of melanoma HLD (hyperlipidemia) HTN (hypertension) Hypothyroidism MDD (major depressive disorder) MINISTERIO on CPAP SSS (sick sinus syndrome) Pt admitted for elective pacemaker due to SSS. She underwent procedure without any complications. Monitored over night and discharged home. Surgical History H/O esophagogastroduodenoscopy History of cholecystectomy Hx of cardiac cath "2012, negative for CAD " Hx of gastric bypass S/P knee surgery Family History Other Colonic polyp GERD (gastroesophageal reflux disease) Social History Smoking Status: Never smoker Second Hand Exposure: No; Hx Alcohol Use: No Hx Substance Use: No Preferred Language: Occitan Communication Ability: Effective Synthetic [employer]ocks Pulper Required: No Beliefs That Will Affect Care: Jewish Jewish Beliefs: christain Current Living Situation: Spouse Feels Safe at Home: Yes Assistive Devices: Glasses and Walker Review of Systems A total of 10 systems reviewed and were otherwise negative Physical Exam Vital Signs Vital Signs - 24 hr 11/02/20 12:18 11/02/20 12:43 11/02/20 12:50 Temperature 37.1 C Temperature Source Oral Pulse Rate 72 72 67 Pulse Rate from SpO2 Sensor Respiratory Rate 20 26 H 25 H Respiratory Effort / Characteristics Non-Labored Respiratory Depth Normal Blood Pressure 166/77 H Blood Pressure Mean 106 Pulse Oximetry 99 Oxygen Delivery Method Room Air Sepsis Recent Fever Within 48 Hours No Sepsis New/Unexplained Change in Mental Status N/A Sepsis Action Taken by Nursing No Action Required 11/02/20 13:00 11/02/20 13:06 11/02/20 13:10 Temperature Temperature Source Pulse Rate 68 62 Pulse Rate from SpO2 Sensor Respiratory Rate 21 24 Respiratory Effort / Characteristics Respiratory Depth Blood Pressure Blood Pressure Mean Pulse Oximetry Oxygen Delivery Method Room Air Sepsis Recent Fever Within 48 Hours Sepsis New/Unexplained Change in Mental Status Sepsis Action Taken by Nursing 11/02/20 13:20 11/02/20 13:34 11/02/20 13:40 Temperature Temperature Source Pulse Rate 60 85 64 Pulse Rate from SpO2 Sensor Respiratory Rate 25 H 17 25 H Respiratory Effort / Characteristics Respiratory Depth Blood Pressure Blood Pressure Mean Pulse Oximetry Oxygen Delivery Method Sepsis Recent Fever Within 48 Hours Sepsis New/Unexplained Change in Mental Status Sepsis Action Taken by Nursing 11/02/20 13:50 11/02/20 14:00 11/02/20 14:03 Temperature Temperature Source Pulse Rate 67 65 68 Pulse Rate from SpO2 Sensor 68 Respiratory Rate 16 16 21 Respiratory Effort / Characteristics Respiratory Depth Blood Pressure 141/58 H Blood Pressure Mean 85 Pulse Oximetry 98 Oxygen Delivery Method Sepsis Recent Fever Within 48 Hours Sepsis New/Unexplained Change in Mental Status Sepsis Action Taken by Nursing Physical Exam GENERAL: She is oriented to person, place, and time. She appears well-developed and well-nourished. She does not appear distressed. HENT: Exam performed. -Head: Normocephalic and atraumatic. -Right Ear: External ear normal. No mastoid tenderness. -Left Ear: External ear normal. No mastoid tenderness. -Mouth/Throat: The oropharynx is clear and moist. No trismus in the jaw. No dental abscesses or uvula swelling. No oropharyngeal exudate or tonsillar abscesses. EYES: Conjunctivae and EOM are normal. Pupils are equal, round, and reactive to light. Right eye exhibits no discharge. Left eye exhibits no discharge. No scleral icterus. NECK: Normal range of motion. Neck supple. No JVD present. No spinous process tenderness present. No carotid bruit present. No rigidity. No tracheal deviation and normal range of motion present. No Brudzinski's sign and no Kernig's sign noted. CV: Normal rate, regular rhythm, normal heart sounds and intact distal pulses. There is no peripheral edema. Palpable radial pulses bue. PULM/CHEST: Effort normal and breath sounds normal. No respiratory distress. No stridor. She has no wheezes. She has no rales. -Chest Wall: She exhibits no tenderness. ABD: The abdomen is soft. Bowel sounds are normal. She has no distension. No mas s is present. There is no tenderness. There is no rebound, no guarding, no Regalado's sign and no tenderness at McBurney's point. Rovsig negative MUSC/SKEL: Normal range of motion. There is no peripheral edema, tenderness or deformity. LYMPH: No cervical adenopathy. NEURO: She is alert and oriented to person, place, and time. She has normal strength. No cranial nerve deficit or sensory deficit. Coordination and gait normal. GCS eye subscore is 4. GCS verbal subscore is 5. GCS motor subscore is 6. Cerebellar tests wnl. SKIN: Skin is warm and dry. She is not diaphoretic. PSYCH: She has a normal mood and affect. Behavior is normal. Judgment and thought content normal. Course Course 1234: The patient was evaluated in room A12. A complete history and physical exam was performed Cardiac monitoring: An order was placed for continuous cardiac monitoring. The monitor shows a rate of 70 with paced rhythm 1436: Vital signs stable. Labs show a creatinine at baseline of 1.71. Patient's troponin is negative. D-dimer is elevated at 530 however given age adjustment this is within normal limits. Imaging is within normal limits. [facility]. Spoke with Sumi who stated to admit to Dr. Ortiz Medical Decision Making Laboratory Data Result diagrams: 11/02/20 13:00 11/02/20 13:00 Labs: Lab Results 11/02/20 11/02/20 11/02/20 Range/Units 12:55 12:55 13:00 WBC 9.43 (4.8-10.8) K/uL RBC 3.97 L (4.2-5.4) M/uL Hgb 12.2 (12.0-16.0) g/dL Hct 37.1 (37-47) % MCV 93.5 (80-100) fL MCH 30.7 (25-34) pg MCHC 32.9 (32-36) g/dL RDW Std Deviation 44.2 (36.4-46.3) fL RDW Coeff of Leatha 12.9 (11.5-14.5) % Plt Count 239 (130-400) K/uL MPV 10.0 (7.4-10.4) fL Immature Gran % (Auto) 0.1 % Neut % (Auto) 56.4 % Lymph % (Auto) 33.6 % Millard % (Auto) 7.6 % Eos % (Auto) 1.8 % Baso % (Auto) 0.5 % Neut # (Auto) 5.31 (1.4-6.5) K/uL Lymph # (Auto) 3.17 (1.2-3.4) K/uL Millard # (Auto) 0.72 H (0.11-0.59) K/uL Eos # (Auto) 0.17 (0-0.5) K/uL Baso # (Auto) 0.05 (0-0.2) K/uL Immature Gran # (Auto) 0.01 (0.00-0.02) K/uL D-Dimer (0-500) ug/L FEU Sodium (136-145) mmol/L Potassium (3.5-5.1) mmol/L Chloride (98-107) mmol/L Carbon Dioxide (21-32) mmol/L Anion Gap (3-11) BUN (7-18) mg/dl Creatinine (0.6-1.2) mg/dl Est Cr Clr Drug Dosing ml/min Est GFR ( Amer) Est GFR (Non-Af Amer) BUN/Creatinine Ratio (10-20) Glucose (70-99) mg/dl Calcium (8.5-10.1) mg/dl Troponin I (0-0.045) ng/ml Lipase (73-393) U/L COVID-19 Eval Order CovFluRsv at [facility] SARS-CoV-2 (PCR) NEGATIVE (Negative) Influenza Type A (PCR) Negative (Neg) Influenza Type B (PCR) Negative (Neg) RSV (RT-PCR) Negative (Neg) 11/02/20 11/02/20 Range/Units 13:00 13:00 WBC (4.8-10.8) K/uL RBC (4.2-5.4) M/uL Hgb (12.0-16.0) g/dL Hct (37-47) % MCV (80-100) fL MCH (25-34) pg MCHC (32-36) g/dL RDW Std Deviation (36.4-46.3) fL RDW Coeff of Leatha (11.5-14.5) % Plt Count (130-400) K/uL MPV (7.4-10.4) fL Immature Gran % (Auto) % Neut % (Auto) % Lymph % (Auto) % Millard % (Auto) % Eos % (Auto) % Baso % (Auto) % Neut # (Auto) (1.4-6.5) K/uL Lymph # (Auto) (1.2-3.4) K/uL Millard # (Auto) (0.11-0.59) K/uL Eos # (Auto) (0-0.5) K/uL Baso # (Auto) (0-0.2) K/uL Immature Gran # (Auto) (0.00-0.02) K/uL D-Dimer 530 H* (0-500) ug/L FEU Sodium 137 (136-145) mmol/L Potassium 4.4 (3.5-5.1) mmol/L Chloride 104 (98-107) mmol/L Carbon Dioxide 27 (21-32) mmol/L Anion Gap 5.0 (3-11) BUN 28 H (7-18) mg/dl Creatinine 1.71 H (0.6-1.2) mg/dl Est Cr Clr Drug Dosing 43.6 ml/min Est GFR ( Amer) 36.8 Est GFR (Non-Af Amer) 31.8 BUN/Creatinine Ratio 16.5 (10-20) Glucose 110 H (70-99) mg/dl Calcium 9.8 (8.5-10.1) mg/dl Troponin I < 0.015 (0-0.045) ng/ml Lipase 163 (73-393) U/L COVID-19 Eval Order SARS-CoV-2 (PCR) (Negative) Influenza Type A (PCR) (Neg) Influenza Type B (PCR) (Neg) RSV (RT-PCR) (Neg) Imaging Data Chest x-ray: Radiologist's impression: Chest X-Ray 11/02/20 12:42 XR chest 1V portable CLINICAL HISTORY: Atypical chest pain. COMPARISON STUDY: Chest radiograph August 21, 2019. FINDINGS: Lung volumes are mildly diminished. A dual-lead left subclavian pacemaker is in place. There is cardiomegaly. There is slight interstitial thickening. No consolidation is identified. IMPRESSION: Cardiomegaly with pulmonary vascular congestion. ACT 112: Negative or not required by law. Electronically signed by: Mihir Loaiza M.D. 11/02/2020 1:[address] scan - head: Radiologist's impression: CT head/brain wo con CLINICAL HISTORY: 59 years-old Female with dizziness. Acute dizziness TECHNIQUE: Multiple axial CT images of the head were obtained without contrast. A dose lowering technique was utilized adhering to the principles of ALARA. CT DOSE: 614.27 mGy.cm COMPARISON: Head CT 08/21/2019 FINDINGS: No acute intracranial hemorrhage, midline shift, intracranial mass, hydrocephalus, territorial ischemia or abnormal extra-axial collection. The calvarium is intact. Prior bilateral lens repair. The paranasal sinuses, mastoid air cells, and middle ear cavities are clear. IMPRESSION: No acute intracranial abnormality. ACT 112: Negative or not required by law. The above report was generated using voice recognition software. It may contain grammatical, syntax or spelling errors. Electronically signed by: Jose Ghosh M.D. 11/02/2020 1:35 PM Dictated: 11/02/20 1332 Transcribed: 11/02/20 1332 ECG Data Additional Comments: Paced rhythm with a rate of 76. [place] 344 QRS [address] elevation or ST depression. MDM Narrative Vital signs stable. Labs show a creatinine at baseline of 1.71. Patient's troponin is negative. D-dimer is elevated at 530 however given age adjustment this is within normal limits. Imaging is within normal limits. [facility] out ACS. Spoke with Sumi who stated to admit to Dr. Ortiz Impression & Plan Chest pain Discharge Plan Visit Data Chief Complaint: Chest Pain Stated Complaint: CHEST PAIN-PAIN IN L [id number] RE[facility] ED Provider: Leonidas Schaefer Discharge Problem: Chest pain Patient Disposition: Admitted As Inpatient Forms Stand Alone Forms: [facility] Surphace Prescriptions Prescriptions: No Action doxycycline hyclate 20 mg Tablet 20 mg PO BID RF: 0 furosemide 40 mg Tablet 20 mg PO UD RF: 0 furosemide 40 mg tablet 40 mg PO UD RF: 0 carvedilol 6.25 mg Tablet 6.25 mg PO BID RF: 0 multivitamin Tablet 1 tab PO QAM RF: 0 gabapentin 600 mg Tablet 600 mg PO TID RF: 0 Lantus U-100 Insulin 100 unit/mL Solution 23 unit SUBCUT QAM RF: 0 citalopram 40 mg Tablet 40 mg PO QAM RF: 0 levothyroxine [Synthroid] 100 mcg Tablet 100 mcg PO QAM RF: 0 hydralazine 50 mg Tablet 50 mg PO TID RF: 0 Humalog U-100 Insulin 100 unit/mL Cartridge 1 sliding scale dose SUBCUT UD RF: 0 atorvastatin 40 mg Tablet 40 mg PO PM RF: 0 bupropion HCl [Wellbutrin SR] 100 mg Tablet Sustained-Release 12 Hr 100 mg PO BID RF: 0 pantoprazole 40 mg Tablet,Delayed Release (Dr/Ec) 40 mg PO QAM RF: 0 Ozempic 1 mg/dose (4 mg/3 mL) pen injector 4 mg SUBCUT WK RF: 0 Referrals Referrals: Luis Fernando Rojas MD [Primary Care Provider] - Discharge Problem: Chest pain Qualifiers: Chest pain type: unspecified Qualified Code(s): R07.9 - Chest pain, unspecified
[2020-11-02 13:33] LABS: BUN Creatinine Ratio 16.5 (10-20); Blood Urea Nitrogen 28 mg/dl (7-18); Calcium 9.8 mg/dl (8.5-10.1); Carbon Dioxide 27 mmol/L (21-32); Chloride 104 mmol/L (98-107); Creatinine Clr Calc Pharmacy 43.6 ml/min; Est GFR (African American) 36.8; Est GFR (Non-African American) 31.8; Glucose 110 mg/dl (70-99); Lipase 163 U/L (73-393); Potassium 4.4 mmol/L (3.5-5.1); Sodium 137 mmol/L (136-145)
--- NOTE | 2020-11-02 13:36 | CT Scan Report ---
CT head/brain wo con CLINICAL HISTORY: 59 years-old Female with dizziness. Acute dizziness TECHNIQUE: Multiple axial CT images of the head were obtained without contrast. A dose lowering tech nique was utilized adhering to the principles of ALARA. CT DOSE: 614.27 mGy.cm COMPARISON: Head CT 08/21/2019 FINDINGS: No acute intracranial hemorrhage, midline shift, intracranial mass, hydrocephalus, territorial ischem ia or abnormal extra-axial collection. The calvarium is intact. Prior bilateral lens repair. The paranasal sinuses, mastoid air cells, and m iddle ear cavities are clear. IMPRESSION: No acute intracranial abnormality. ACT 112: Negative or not required by law. The above report was generated using voice recognition software. It may contain grammatical, syntax o r spelling errors. Electronically signed by: Jose Ghosh M.D. 11/02/2020 1:35 PM
[2020-11-02 13:40] LABS: Troponin I < 0.015 ng/ml (0-0.045)
[2020-11-02 13:43] LABS: D Dimer 530 ug/L FEU (0-500)
[2020-11-02 13:58] LABS: Influenza A virus by PCR Negative (Neg); Influenza B virus by PCR Negative (Neg); RSV by PCR Negative (Neg); SARS CoV2 RNA(COVID-19) InHosp NEGATIVE (Negative)
--- NOTE | 2020-11-02 14:18 | History & Physical Report ---
Date of Service November 02, 2020 Assessment & Plan (1) Chest pain: (2) Dizziness: (3) (HFpEF) heart failure with preserved ejection fraction: This is a 59 year old F with PMH sick sinus syndrome s/p pacemaker, paroxysmal atrial tachycardia, rheumatic mitral regurgitation, DM II, CKD III, HTN, HLD, diastolic CHF, MINISTERIO on CPAP, seizure, obesity with hx of gastric bypass hypothyroidism, diabetic neuropathy, depression who presented to ER due to chest pain x 3 days. Initial EKG and troponin unremarkable. Chest x-ray with evidence of pulmonary vascular congestion. Patient dry weight approximately 240 pounds, at home today she was 241. She does have mild trace lower extremity edema. Admit to rule out ACS as well as possible acute on chronic HFpEF, rule out PE. Admit to med telemetry Consult cardiology Obtain echocardiogram -last 07/2019 revealed EF 55 to 59%, mild left ear, MR and TR Give IV Lasix 40 mg x 1 now (patient did take her home dose of 40 mg orally today), and give 40 mg IV daily Pacemaker interrogation Cycle troponin, repeat EKG N.p.o. after midnight in event stress test recommended Strict I's and O's, daily weights -obtain accurate weight when patient gets on floor with standing scale Dizziness consult PT, hx of BPPV obtain orthostatics prn meclizine SSS S/P Pacer pacer interrogation (4) Elevated d-dimer: Obtain bilateral Dopplers and VQ scan for completeness Unable to obtain chest CTA secondary to renal function (5) Diabetes mellitus, type II: Uncontrolled, last A1c 8.1 on 09/20/2020 Lantus/NovoLog per protocol Also on Ozempic as outpatient (6) HTN (hypertension): BP mildly elevated in ED Continue Coreg and hydralazine (7) HLD (hyperlipidemia): Continue statin Fasting panel in a.m. (8) CKD (chronic kidney disease), stage III: Baseline renal function 1.6-1.8 BUN/creatinine 28 & 1.71 today Monitor, avoid nephrotoxic agents (9) MINISTERIO on CPAP: CPAP @ bedtime (10) DVT prophylaxis: SQ Heparin Dispo:med tele PCP: Crystal FULL CODE Pt was seen and examined in collaboration with Dr. Salguero, please see addendum History of Present Illness Chief Complaint: Chest pain x 3 days. Primary Care Provider: Luis Fernando Rojas MD This is a 59 year old F with PMH sick sinus syndrome s/p pacemaker, paroxysmal atrial tachycardia, rheumatic mitral regurgitation, DM II, CKD III, HTN, HLD, diastolic CHF, MINISTERIO on CPAP, seizure, obesity with hx of gastric bypass hypothyroidism, diabetic neuropathy, depression who presented to ER due to chest pain x 3 days. Pain is located substernally, feels like something sitting on chest, worse with deep breathing, lying flat, radiates to L arm, constant and every time she breaths. Nothing has made it better. Today she admits to having FLORES, SOB at rest, and dizziness. She feels sharp pain in LUE is different. It occurred for 5 minutes today and its gone. Dizziness started today. She has hx of vertigo in past but today feels off balance. Dx with BPPV and treated with therapy and oral therapy. She has never experienced this in past in regards to past.. She denies f/c/s, syncope, cough, URI sx, covid exposure, n/v/d, abdominal pain. She does have hx of gerd and this does not feel similar. She takes PPI and this is controlled. She has chronic tinnitus and this is unchanged. Denies any change in medication or change in weight. She admits to OLSON, but no lower extremity swelling. Hx of CHF and she feels like it does feel like this, but doesn't have any other sx. She has hx of PPM and had it interrogated 6 months ago, due in a week or so. She follows Dr. Stevenson for cardiology. Hx of depression controlled on medication. She had a nephew pass away from [place] 6 months ago. In ED patient remained hemodynamically stable although mildly hypertensive. Lab work notable for elevated BUN/creatinine 20 and 1.71 which is at patient's baseline. Her D-dimer was mildly elevated at 530. CBC generally unremarkable. Covid and influenza screen negative. Head CT without acute abnormality. Chest x-ray did reveal mild pulmonary vascular congestion and cardiomegaly. Otherwise no acute abnormality. Allergies Allergy/AdvReac Type Severity Reaction Status Date / Time CHIDI Inhibitors AdvReac Mild COUGH Verified 11/02/20 14:17 Home Medications Medication Instructions Recorded Confirmed Type Humalog U-100 Insulin 1 sliding scale dose SUBCUT UD 07/05/18 11/02/20 History Lantus U-100 Insulin 23 unit SUBCUT QAM 07/05/18 11/02/20 History atorvastatin 40 mg PO PM 07/05/18 11/02/20 History citalopram 40 mg PO QAM 07/05/18 11/02/20 History gabapentin 600 mg PO TID 07/05/18 11/02/20 History hydralazine 50 mg PO TID 07/05/18 11/02/20 History levothyroxine [Synthroid] 100 mcg PO QAM 07/05/18 11/02/20 History multivitamin 1 tab PO QAM 07/05/18 11/02/20 History pantoprazole 40 mg PO QAM 07/05/18 11/02/20 History doxycycline hyclate 20 mg PO BID 08/11/19 11/02/20 History carvedilol 6.25 mg PO BID 08/21/19 11/02/20 History furosemide 20 mg PO MOWEFR 08/21/19 11/02/20 History furosemide 40 mg PO SUTUTHSA 08/21/19 11/02/20 History bupropion HCl [Wellbutrin SR] 150 mg PO Q12H 11/02/20 11/02/20 History semaglutide [Ozempic] 4 mg SUBCUT WK 11/02/20 11/02/20 History Past Med/Surg History Medical History (Updated 11/02/20 @ 14:56 by Sumi Varela PA-C) CKD (chronic kidney disease), stage III Depression Diabetes mellitus, type II Diastolic heart failure Difficult airway for intubation Endometrial carcinoma (02/23/13) "S/P hysterectomy " History of melanoma HLD (hyperlipidemia) HTN (hypertension) Hypothyroidism MDD (major depressive disorder) MINISTERIO on CPAP SSS (sick sinus syndrome) Pt admitted for elective pacemaker due to SSS. She underwent procedure without any complications. Monitored over night and discharged home. Surgical History H/O esophagogastroduodenoscopy History of cholecystectomy Hx of cardiac cath "2012, negative for CAD " Hx of gastric bypass S/P knee surgery Family History Other Colonic polyp GERD (gastroesophageal reflux disease) Social History Smoking Status: Never smoker Second Hand Exposure: No; Hx Alcohol Use: No Hx Substance Use: No Preferred Language: Maori Communication Ability: Effective Wrap Turner Required: No Beliefs That Will Affect Care: Yarsani Yarsani Beliefs: christain Current Living Situation: Spouse Feels Safe at Home: Yes Assistive Devices: Glasses and Walker Review of Systems Review of Systems: All systems reviewed & are unremarkable except as noted in HPI & below Physical Exam Physical Exam: Constitutional: WD/WN, morbidly obese, female, vitals as above, NAD, sitting up in bed, pleasant, conversing easily Head: Normocephalic, Atraumatic Eyes: PERRL, conjunctivae normal, anicteric sclerae ENMT: external ear and nose normal, oropharynx normal Neck: trachea midline, no thyromegaly normal visual inspection Respiratory: normal respiratory effort, lungs clear to auscultation, no wheeze, rales, rhonchi. Normal insp/exp effort, no accessory muscle use Cardiovascular: Heart sounds distant secondary to body habitus, RRR, no murmur, trace bilateral ankle edema, bilateral chronic venous stasis changes Vessels: no JVD or carotid bruit Chest: normal inspection of chest, pain to palpation, but feels pain is different than reported chest pain Abdomen: normal bowel sounds, soft, nontender, no hepatosplenomegaly Musculoskeletal: no cyanosis or clubbing, extremities motor strength 5/5 Skin: no rashes, warm and dry normal turgor Neurologic: PERRL, EOMI, accommodation nl, no face palsy, no dysarthria CN's II-XI intact bilaterally and moves all extremities Psychiatric: A+Ox3, euthymic affect : deferred Results & Data Results & Data ([facility]) Vital Signs (Past 12 Hours) Vital Signs Temp Pulse Resp BP Pulse Ox 11/02/20 14:03 68 21 141/58 H 98 11/02/20 14:00 65 16 11/02/20 13:50 67 16 11/02/20 13:40 64 25 H 11/02/20 13:34 85 17 11/02/20 13:20 60 25 H 11/02/20 13:10 62 24 11/02/20 13:00 68 21 11/02/20 12:50 67 25 H 11/02/20 12:43 72 26 H 11/02/20 12:18 37.1 C 72 20 166/77 H 99 Diagnostic Findings Chest X-Ray 11/02/20 12:42 XR chest 1V portable CLINICAL HISTORY: Atypical chest pain. COMPARISON STUDY: Chest radiograph August 21, 2019. FINDINGS: Lung volumes are mildly diminished. A dual-lead left subclavian pacemaker is in place. There is cardiomegaly. There is slight interstitial thickening. No consolidation is identified. IMPRESSION: Cardiomegaly with pulmonary vascular congestion. ACT 112: Negative or not required by law. Electronically signed by: Mihir Loaiza M.D. 11/02/2020 1:[address] 11/02/20 12:43 CT head/brain wo con CLINICAL HISTORY: 59 years-old Female with dizziness. Acute dizziness TECHNIQUE: Multiple axial CT images of the head were obtained without contrast. A dose lowering technique was utilized adhering to the principles of ALARA. CT DOSE: 614.27 mGy.cm COMPARISON: Head CT 08/21/2019 FINDINGS: No acute intracranial hemorrhage, midline shift, intracranial mass, hydrocephalus, territorial ischemia or abnormal extra-axial collection. The calvarium is intact. Prior bilateral lens repair. The paranasal sinuses, mastoid air cells, and middle ear cavities are clear. IMPRESSION: No acute intracranial abnormality. ACT 112: Negative or not required by law. The above report was generated using voice recognition software. It may contain grammatical, syntax or spelling errors. Electronically signed by: Jose Ghosh M.D. 11/02/2020 1:35 PM ECG Rate (beats per minute): 76 Findings: + paced rhythm COVID-19 Results Results COVID-19 Adm Lab Results: RBC 3.97 M/uL (4.2-5.4) L 11/02/20 WBC 9.43 K/uL (4.8-10.8) 11/02/20 Hgb 12.2 g/dL (12.0-16.0) 11/02/20 Hct 37.1 % (37-47) 11/02/20 Plt Count 239 K/uL (130-400) 11/02/20 Neutrophils (%) (Auto) 56.4 % 11/02/20 Lymphocytes (%) (Auto) 33.6 % 11/02/20 Monocytes # (Auto) 0.72 K/uL (0.11-0.59) H 11/02/20 Eosinophils # (Auto) 0.17 K/uL (0-0.5) 11/02/20 Immature Granulocyte % (Auto) 0.1 % 11/02/20 Neutrophils # (Auto) 5.31 K/uL (1.4-6.5) 11/02/20 Lymphocytes # (Auto) 3.17 K/uL (1.2-3.4) 11/02/20 Monocytes # (Auto) 0.72 K/uL (0.11-0.59) H 11/02/20 Eosinophils # (Auto) 0.17 K/uL (0-0.5) 11/02/20 Basophils # (Auto) 0.05 K/uL (0-0.2) 11/02/20 Immature Granulocyte # (Auto) 0.01 K/uL (0.00-0.02) 11/02/20 Na 137 mmol/L (136-145) 11/02/20 K 4.4 mmol/L (3.5-5.1) 11/02/20 Cl 104 mmol/L (98-107) 11/02/20 CO2 27 mmol/L (21-32) 11/02/20 Anion Gap 5.0 (3-11) 11/02/20 BUN 28 mg/dl (7-18) H 11/02/20 Creatinine 1.71 mg/dl (0.6-1.2) H 11/02/20 BUN/Creatinine Ratio 16.5 (10-20) 11/02/20 Glucose Level 110 mg/dl (70-99) H 11/02/20 Ca 9.8 mg/dl (8.5-10.1) 11/02/20 Troponin I < 0.015 ng/ml (0-0.045) 11/02/20 BI-Rqm-A-Type Natriuretic Pep 262 pg/ml (0-900) 11/02/20 D-Dimer 530 ug/L FEU (0-500) H* 11/02/20 COVID-19 PCR NEGATIVE (Negative) 11/02/20 Influenza Virus Type A (PCR) Negative (Neg) 11/02/20 Influenza Virus Type B (PCR) Negative (Neg) 11/02/20 Chest X-Ray 11/02/20 Code Status & VTE Plan Code Status Full Code VTE Prophylaxis Plan VTE Prophylaxis will be ordered: Yes Supervising Physician Co-Signing Physician Notes Patient is a 59-year-old female with history of paroxysmal atrial tachycardia, diabetes mellitus, CKD stage III, diastolic heart failure and other medical problems presents with history of chest pain since 3 days duration. Chest pain is retrosternal, pleuritic in nature, started at rest, radiates to left upper extremity, worsens with deep breathing and lying flat. Reports associated dyspnea, dizziness. Denies any worsening leg edema, increased weight gain recently. Please review HPI for complete details of presentation. Patient follows with [facility] cardiology and states that she is due for pacemaker interrogation in a week. On exam patient is obese, no apparent distress, normocephalic atraumatic, lungs clear to auscultation, normal breath sounds, S1- S2, no audible murmur, 1+ bilateral lower extremity edema, abdomen soft, nontender, normal bowel sounds, alert, awake, oriented, grossly no focal neurological deficits. Patient is admitted for management of atypical chest pain rule out ACS, acute on chronic diastolic heart failure. Chest x-ray suggestive of pulmonary vascular congestion. Will hold p.o. diuretics, start on IV Lasix daily. Monitor I's and O's, daily weight, will obtain pacemaker interrogation. Given elevated D-dimer in setting of renal insufficiency, will obtain VQ scan and venous Dopplers to rule out PE/DVT. We will also request for orthostatic vital signs and consult PT for possible Catalina's. Will trend cardiac enzymes, check resting echo and repeat EKG in the morning. Cardiology is consulted. Monitor renal function, electrolytes while on IV diuretics. I per sonally reviewed the record. Patient is interviewed and examined at bedside. Patient's care is coordinated with Sumi Varela PA-C. Please refer to the documentation above for details of patient's presentation and for discussion of other issues. (1) Chest pain Chest pain type: unspecified Qualified Code(s): R07.9 - Chest pain, unspecified (2) HTN (hypertension) Hypertension type: unspecified Qualified Code(s): I10 - Essential (primary) hypertension
[2020-11-02] MEDS ORDERED: FUROSEMIDE 40 MG/4 ML VIAL IV STA (14:51)
[2020-11-02] MEDS: ASPIRIN 81 MG ECTAB PO SCH (15:39)
--- NOTE | 2020-11-02 16:22 | Ultrasound Report ---
BILATERAL LOWER EXTREMITY VENOUS DOPPLER CLINICAL HISTORY: Elevated d-dimer. COMPARISON STUDY: Bilateral lower extremity venous Doppler ultrasound October 31, 2017. TECHNIQUE: Sonography of the deep venous system of the bilateral lower extremities was performed. Co mpression and augmentation were evaluated. FINDINGS: The bilateral common femoral, superficial femoral and popliteal veins were compressible. A ugmentation was normal. Flow was shown within the deep calf vessels. IMPRESSION: No evidence of deep venous thrombus within the bilateral lower extremities. ACT 112: Negative or not required by law. Electronically signed by: Mihir Loaiza M.D. 11/02/2020 4:21 PM
--- NOTE | 2020-11-02 17:25 | Nuclear Medicine Report ---
NM pul perfusion CLINICAL HISTORY: 59 years-old Female with elevated dimer, Chest pain. Acute chest pain with shortne ss of breath and elevated d-dimer COMPARISON STUDY: Duplex venous Doppler study and chest radiograph of same day. TECHNIQUE: Perfusion images of both lungs were obtained following the IV administration of 6.2 mCi of technetium 99m MAA. Ventilation portion of the study was not conducted secondary to ongoing institut ional droplet precautions. Images were acquired in the anterior, posterior, and oblique projections. FINDINGS: A chest x-ray performed same day demonstrates cardiomegaly with pulmonary vascular congestion The ventilation portion of the study was not conducted. No segmental perfusion defects are identified. IMPRESSION:Low probability for pulmonary embolus. ACT 112: Negative or not required by law. The above report was generated using voice recognition software. It may contain grammatical, syntax o r spelling errors. Electronically signed by: Jose Ghosh M.D. 11/02/2020 5:23 PM
[2020-11-02] MEDS ORDERED: MECLIZINE HCL 25 MG TAB PO PRN (17:36)
[2020-11-02] MEDS ORDERED: GLUCAGON FOR INJ 1 MG VIAL SQ PRN (17:36)
[2020-11-02] MEDS ORDERED: MAGNESIUM HYDROXIDE SUSP 30 ML UDC PO PRN (17:36)
[2020-11-02] MEDS ORDERED: CARBOHYDRATES FOR HYPOGLYCEMIA PO PRN (17:36)
[2020-11-02] MEDS ORDERED: DEXTROSE 50% 50 ML SYRINGE IV PRN (17:36)
[2020-11-02] MEDS ORDERED: FUROSEMIDE 40 MG/4 ML VIAL IV SCH (17:36)
[2020-11-02] MEDS ORDERED: GLUCOSE 10 TABS/TUBE PO PRN (17:36)
[2020-11-02] MEDS ORDERED: NITROGLYCERIN SL 0.4 MG/TAB TAB SL PRN (17:36)
[2020-11-02] MEDS ORDERED: ALUMINUM/MAGNESIUM SUSP 30 ML UDC PO PRN (17:36)
[2020-11-02] MEDS ORDERED: GLUCOSE 40% GEL 15 GM TUBE PO PRN (17:36)
[2020-11-02] MEDS: FUROSEMIDE 40 MG in SYRINGE 0 ML IV SCH (18:35)
[2020-11-02] MEDS: buPROPion SR 150 MG TABCR PO SCH (18:35)
[2020-11-02] MEDS: INSULIN ASPART 100 UNITS/ML 3 ML PEN SC SCH ×2 (18:38→21:24)
[2020-11-02] MEDS: GABAPENTIN 600 MG TAB PO SCH (20:07)
[2020-11-02] MEDS: hydrALAZINE TAB 50 MG TAB PO SCH (20:07)
[2020-11-02] MEDS: ATORVASTATIN 40 MG TAB PO SCH (20:08)
[2020-11-02] MEDS: carvediloL 6.25 MG TAB PO SCH (20:08)
[2020-11-02] MEDS ORDERED: DOXYCYCLINE HYCLATE 20 MG PO SCH (21:00)
[2020-11-02] MEDS: HEPARIN SOD 5,000 UNIT/0.5 ML VIAL SQ SCH (21:23)
[2020-11-03] MEDS ORDERED: INSULIN ASPART 100 UNITS/ML 3 ML PEN SC SCH (02:00)
[2020-11-03] MEDS: LEVOTHYROXINE SODIUM 100 MCG TABLET PO SCH (05:39)
[2020-11-03] MEDS: HEPARIN SOD 5,000 UNIT/0.5 ML VIAL SQ SCH ×3 (05:39→20:10)
[2020-11-03] MEDS: INSULIN ASPART 100 UNITS/ML 3 ML PEN SC SCH ×5 (05:40→20:08)
--- NOTE | 2020-11-03 06:35 | Electrocardiogram Report ---
Test Reason : Blood Pressure : / mmHG Vent. Rate : 076 BPM Atrial Rate : 076 BPM P-R Int : 344 ms QRS Dur : 096 ms QT Int : 400 ms P-R-T Axes : 000 -14 023 degrees QTc Int : 450 ms Atrial-paced rhythm with prolonged AV conduction Inferior infarct , age undetermined Abnormal ECG When compared with ECG of 21-AUG-2019 13:21, Criteria for Inferior infarct is now Present Confirmed by Josse Nance ([id number]) on 11/03/2020 6:35:13 AM Referred By: REFERRED SELF Confirmed By:Josse Nance
[2020-11-03 06:52] LABS: Hematocrit (blood only) 35.5 % (37-47); Hemoglobin 11.7 g/dL (12.0-16.0); Mean Corpuscular Volume 93.9 fL (80-100); Mean Platelet Volume 10.2 fL (7.4-10.4); Platelet Count 211 K/uL (130-400); RDW Standard Deviation 44.6 fL (36.4-46.3); Red Blood Count 3.78 M/uL (4.2-5.4); White Blood Count 8.97 K/uL (4.8-10.8)
[2020-11-03 07:35] LABS: BUN Creatinine Ratio 17.6 (10-20); Calcium 9.3 mg/dl (8.5-10.1); Creatinine Clr Calc Pharmacy 35.7 ml/min; Est GFR (African American) 30.1; Potassium 4.2 mmol/L (3.5-5.1)
[2020-11-03] MEDS: PANTOprazole 40 MG TAB PO SCH (08:12)
[2020-11-03] MEDS: CITALOPRAM 40 MG TAB PO SCH (08:12)
[2020-11-03] MEDS: MULTIVITAMIN TAB PO SCH (08:12)
[2020-11-03] MEDS: carvediloL 6.25 MG TAB PO SCH ×2 (08:13→20:07)
[2020-11-03] MEDS: hydrALAZINE TAB 50 MG TAB PO SCH ×3 (08:13→20:07)
[2020-11-03] MEDS: GABAPENTIN 600 MG TAB PO SCH ×3 (08:13→20:08)
[2020-11-03] MEDS: FUROSEMIDE 40 MG in SYRINGE 0 ML IV SCH (08:14)
[2020-11-03] MEDS: INSULIN GLARGINE SOLOSTAR 100 UNITS/ML 3 ML PEN SC SCH (08:16)
[2020-11-03] MEDS: buPROPion SR 150 MG TABCR PO SCH ×2 (09:06→20:09)
[2020-11-03] MEDS: ASPIRIN 81 MG ECTAB PO SCH (09:06)
--- NOTE | 2020-11-03 10:03 | Cardiology Consultation ---
Date of Consultation November 03, 2020 Assessment & Plan (1) Chest pain: Patient is a 59-year-old female with complex constellation of medical issues as outlined in HPI. She presents now with symptoms atypical for angina with pleuritic discomfort and dizziness sharp jabbing pain to the left arm of 3 days on duration nearly continuous. No signs of ischemia by EKG or cardiac enzyme. Echocardiogram without wall motion abnormality. Acute coronary syndrome is not suggested by findings Evaluation including venous duplex and VQ scan without thromboembolic phenomena. No pericardial effusion on echocardiogram Rhythm is predominantly atrially paced without arrhythmia on telemetry Chest x-ray on presentation suggested mild plethoric changes but no overt volume overload. Exam currently not suggestive of congestive heart failure. Recommendations: Suspect noncardiac origin and no signs of ischemia but will check sed rate repeat EKG to exclude pericardial changes. We will stop IV diuretics at this time Continue outpatient medication Recommend stress nuclear imaging post discharge for complete evaluation (2) (HFpEF) heart failure with preserved ejection fraction: Appears compensated on clinical exam today. We will discontinue IV furosemide (3) Diastolic heart failure: (4) MINISTERIO on CPAP: (5) CKD (chronic kidney disease), stage III: History of Present Illness Reason for Consultation: Atypical chest pain Requesting Physician: Dr. Malhotra Attending Physician: Casandra Malhotra MD History of Present Illness Patient is a complex 59-year-old female with underlying issues include 1. Sick sinus syndrome/tachybradycardia syndrome status post dual-chamber pacemaker insertion 11/17/2018, Lesa [employer] W1 DR 01 XT MRI, last interrogation 09/11/2020 2. Paroxysmal atrial tachycardia without recent recurrence by pacer interrogation 3. Hypertensive heart disease with preserved ejection fraction and kidney disease with chronic diastolic congestive heart failure and stage 3 chronic kidney disease GFR approximately 30 4. Morbid obesity status post bariatric surgery 2016 5. Obstructive sleep apnea with CPAP supplementation 6. Type 2 diabetes mellitus 7. Prior noncardiac chest pain status post normal coronary angiography March 2013 Patient referred for evaluation after admission with symptoms of chest pain and chest heaviness sharp radiating pain to her left arm pleuritic discomfort approximately 3 days in duration. Patient was initially evaluated at [facility] then transferred to the emergency room for further assessment. Symptoms nearly continuous and present currently. Notes no overt fever though has been chilled for 2 days. Notes no cough or worsening shortness of breath. No orthopnea. No acute weight gain. No bleeding issues melena medication dysuria hematuria. Has been taking medications as prescribed without difficulties. No sense of tachypalpitations or irregular heart rhythms. Occasional dizziness but unchanged from past. No irritation or tenderness overlying pacemaker. Chest x-ray on initial presentation was mildly plethoric. No acute ST segment changes on EKG and troponin serially. Echocardiogram yesterday evening demonstrated preserved LV systolic function and no pericardial effusion Patient has received IV furosemide with slight decline in overall renal function, no change in symptoms Allergies Allergy/AdvReac Type Severity Reaction Status Date / Time CHIDI Inhibitors AdvReac Mild COUGH Verified 11/02/20 14:17 Home Medications Medication Instructions Recorded Confirmed Type Humalog U-100 Insulin 1 sliding scale dose SUBCUT UD 07/05/18 11/02/20 History Lantus U-100 Insulin 23 unit SUBCUT QAM 07/05/18 11/02/20 History atorvastatin 40 mg PO PM 07/05/18 11/02/20 History citalopram 40 mg PO QAM 07/05/18 11/02/20 History gabapentin 600 mg PO TID 07/05/18 11/02/20 History hydralazine 50 mg PO TID 07/05/18 11/02/20 History levothyroxine [Synthroid] 100 mcg PO QAM 07/05/18 11/02/20 History multivitamin 1 tab PO QAM 07/05/18 11/02/20 History pantoprazole 40 mg PO QAM 07/05/18 11/02/20 History doxycycline hyclate 20 mg PO BID 08/11/19 11/02/20 History carvedilol 6.25 mg PO BID 08/21/19 11/02/20 History furosemide 20 mg PO MOWEFR 08/21/19 11/02/20 History furosemide 40 mg PO SUTUTHSA 08/21/19 11/02/20 History bupropion HCl [Wellbutrin SR] 150 mg PO Q12H 11/02/20 11/02/20 History semaglutide [Ozempic] 4 mg SUBCUT WK 11/02/20 11/02/20 History Patient History Medical History CKD (chronic kidney disease), stage III Depression Diabetes mellitus, type II Diastolic heart failure Difficult airway for intubation Endometrial carcinoma (02/23/13) "S/P hysterectomy " History of melanoma HLD (hyperlipidemia) HTN (hypertension) Hypothyroidism MDD (major depressive disorder) MINISTERIO on CPAP SSS (sick sinus syndrome) Pt admitted for elective pacemaker due to SSS. She underwent procedure without any complications. Monitored over night and discharged home. Surgical History H/O esophagogastroduodenoscopy History of cholecystectomy Hx of cardiac cath "2012, negative for CAD " Hx of gastric bypass S/P knee surgery Family History Other Colonic polyp GERD (gastroesophageal reflux disease) Social History Smoking Status: Never smoker Second Hand Exposure: No; Hx Alcohol Use: No Hx Substance Use: No Preferred Language: Tristanian Communication Ability: Effective Poke In Required: No Beliefs That Will Affect Care: None Current Living Situation: Spouse Other Information That Helps Us Care for You: No Feels Safe at Home: Yes Safety Concerns: Feels Safe At This Time Assistive Devices: None Review of Systems Review of Systems: All systems reviewed & are unremarkable except as noted in HPI & below Physical Exam Constitutional: + morbidly obese Eyes: PERRL, conjunctivae normal, anicteric sclerae ENMT: external ear and nose normal, oropharynx normal Neck: trachea midline, no thyromegaly + thick neck Respiratory: normal respiratory effort, lungs clear to auscultation Cardiovascular: Rate/Rhythm: regular rate and regular rhythm Heart Sounds: normal S1 and normal S2; no gallop and no murmur Palpation: normal PMI Vessels: normal carotid upstroke and radial pulses present; no JVD and no carotid bruit Extremities: + edema (Trace edema with superficial varicosities) Gastrointestinal (Abdomen): normal bowel sounds, soft, nontender, no hepatosplenomegaly Musculoskeletal: no cyanosis or clubbing, extremities motor strength 5/5 Skin: no rashes, warm and dry Neurologic: PERRL, EOMI, accommodation nl, no face palsy, no dysarthria Psychiatric: A+Ox3, euthymic affect Results & Data ([facility]) Vital Signs (Past 12 Hours) Vital Signs Temp Pulse Pulse Resp BP Pulse Ox 11/03/20 07:30 36.7 C 71 20 139/83 97 04/16/21 03:11 36.5 C 75 18 125/67 96 11/02/20 23:38 36.7 C 64 17 99/62 L 97 11/02/20 22:40 60 Laboratory Results Laboratory Results - last 24 hr 11/02/20 11/02/20 11/02/20 12:55 12:55 13:00 WBC 9.43 RBC 3.97 L Hgb 12.2 Hct 37.1 MCV 93.5 MCH 30.7 MCHC 32.9 RDW Std Deviation 44.2 RDW Coeff of [place] 12.9 Plt Count 239 MPV 10.0 Immature Gran % (Auto) 0.1 Neut % (Auto) 56.4 Lymph % (Auto) 33.6 [place] % (Auto) 7.6 Eos % (Auto) 1.8 Baso % (Auto) 0.5 Neut # (Auto) 5.31 Lymph # (Auto) 3.17 [place] # (Auto) 0.72 H Eos # (Auto) 0.17 Baso # (Auto) 0.05 Immature Gran # (Auto) 0.01 D-Dimer Sodium Potassium Chloride Carbon Dioxide Anion Gap BUN Creatinine Est Cr Clr Drug Dosing Est GFR ( Amer) Est GFR (Non-Af Amer) BUN/Creatinine Ratio Glucose POC Glucose Calcium Troponin I NT-Pro-B Natriuret Pep Triglycerides Cholesterol LDL Cholesterol, Calc VLDL Cholesterol, Calc HDL Cholesterol Cholesterol/HDL Ratio Lipase COVID-19 Eval Order CovFluRsv at [facility] SARS-CoV-2 (PCR) NEGATIVE Influenza Type A (PCR) Negative Influenza Type B (PCR) Negative RSV (RT-PCR) Negative 11/02/20 11/02/20 11/02/20 13:00 13:00 13:00 WBC RBC Hgb Hct MCV MCH MCHC RDW Std Deviation RDW Coeff of [place] Plt Count MPV Immature Gran % (Auto) Neut % (Auto) Lymph % (Auto) [place] % (Auto) Eos % (Auto) Baso % (Auto) Neut # (Auto) Lymph # (Auto) [place] # (Auto) Eos # (Auto) Baso # (Auto) Immature Gran # (Auto) D-Dimer 530 H* Sodium 137 Potassium 4.4 Chloride 104 Carbon Dioxide 27 Anion Gap 5.0 BUN 28 H Creatinine 1.71 H Est Cr Clr Drug Dosing 43.6 Est GFR ( Amer) 36.8 Est GFR (Non-Af Amer) 31.8 BUN/Creatinine Ratio 16.5 Glucose 110 H POC Glucose Calcium 9.8 Troponin I < 0.015 Cancelled NT-Pro-B Natriuret Pep Triglycerides Cholesterol LDL Cholesterol, Calc VLDL Cholesterol, Calc HDL Cholesterol Cholesterol/HDL Ratio Lipase 163 COVID-19 Eval Order SARS-CoV-2 (PCR) Influenza Type A (PCR) Influenza Type B (PCR) RSV (RT-PCR) 11/02/20 11/02/20 11/02/20 13:00 17:58 20:44 WBC RBC Hgb Hct MCV MCH MCHC RDW Std Deviation RDW Coeff of [place] Plt Count MPV Immature Gran % (Auto) Neut % (Auto) Lymph % (Auto) [place] % (Auto) Eos % (Auto) Baso % (Auto) Neut # (Auto) Lymph # (Auto) [place] # (Auto) Eos # (Auto) Baso # (Auto) Immature Gran # (Auto) D-Dimer Sodium Potassium Chloride Carbon Dioxide Anion Gap BUN Creatinine Est Cr Clr Drug Dosing Est GFR ( Amer) Est GFR (Non-Af Amer) BUN/Creatinine Ratio Glucose POC Glucose 136 H 191 H Calcium Troponin I NT-Pro-B Natriuret Pep 262 Triglycerides Cholesterol LDL Cholesterol, Calc VLDL Cholesterol, Calc HDL Cholesterol Cholesterol/HDL Ratio Lipase COVID-19 Eval Order SARS-CoV-2 (PCR) Influenza Type A (PCR) Influenza Type B (PCR) RSV (RT-PCR) 11/03/20 11/03/20 11/03/20 00:28 05:28 06:33 WBC 8.97 RBC 3.78 L Hgb 11.7 L Hct 35.5 L MCV 93.9 MCH 31.0 MCHC 33.0 RDW Std Deviation 44.6 RDW Coeff of [place] 13.0 Plt Count 211 MPV 10.2 Immature Gran % (Auto) Neut % (Auto) Lymph % (Auto) [place] % (Auto) Eos % (Auto) Baso % (Auto) Neut # (Auto) Lymph # (Auto) [place] # (Auto) Eos # (Auto) Baso # (Auto) Immature Gran # (Auto) D-Dimer Sodium Potassium Chloride Carbon Dioxide Anion Gap BUN Creatinine Est Cr Clr Drug Dosing Est GFR ( Amer) Est GFR (Non-Af Amer) BUN/Creatinine Ratio Glucose POC Glucose 109 H Calcium Troponin I < 0.015 NT-Pro-B Natriuret Pep Triglycerides Cholesterol LDL Cholesterol, Calc VLDL Cholesterol, Calc HDL Cholesterol Cholesterol/HDL Ratio Lipase COVID-19 Eval Order SARS-CoV-2 (PCR) Influenza Type A (PCR) Influenza Type B (PCR) RSV (RT-PCR) 11/03/20 11/03/20 06:33 07:50 WBC RBC Hgb Hct MCV MCH MCHC RDW Std Deviation RDW Coeff of [place] Plt Count MPV Immature Gran % (Auto) Neut % (Auto) Lymph % (Auto) [place] % (Auto) Eos % (Auto) Baso % (Auto) Neut # (Auto) Lymph # (Auto) [place] # (Auto) Eos # (Auto) Baso # (Auto) Immature Gran # (Auto) D-Dimer Sodium 138 Potassium 4.2 Chloride 105 Carbon Dioxide 27 Anion Gap 6.0 BUN 36 H Creatinine 2.02 H D Est Cr Clr Drug Dosing 35.7 Est GFR ( Amer) 30.1 Est GFR (Non-Af Amer) 26.0 BUN/Creatinine Ratio 17.6 Glucose 112 H POC Glucose 128 H Calcium 9.3 Troponin I NT-Pro-B Natriuret Pep Triglycerides 187 H Cholesterol 98 LDL Cholesterol, Calc 19 VLDL Cholesterol, Calc 37 HDL Cholesterol 42 Cholesterol/HDL Ratio 2 Lipase COVID-19 Eval Order SARS-CoV-2 (PCR) Influenza Type A (PCR) Influenza Type B (PCR) RSV (RT-PCR) (1) Chest pain Chest pain type: unspecified Qualified Code(s): R07.9 - Chest pain, unspecified
[2020-11-03] MEDS ORDERED: Nursing to Pharmacy Communication SCH (14:15)
--- NOTE | 2020-11-03 15:53 | Hospitalist Progress Note ---
Date of Service November 03, 2020 Assessment & Plan (1) Chest pain: Admitted with pleuritic chest pain, possible costochondritis? Tenderness on left chest wall on palpation Appreciate input from cardiology, detailed cardiac work-up showed no evidence of cardiac ischemia/or acute coronary event Recommends outpatient cardiac stress test Patient had VQ scan of lung which was low probability for pulmonary embolism/lower extremity Doppler negative for DVT She is counseled regarding possible benign nature of the chest pain ESR borderline elevated: 45 Suggestive of inflammatory disease- Continue pain control/cannot utilize NSAIDs for acute renal failure has underly ing chronic kidney disease: We will do trial of low-dose prednisone 10 mg daily Chronic CHF with preserved left ventricular function: Volume status stable, no evidence of decompensated CHF or volume overload Appreciate input from cardiology, diuretics/Lasix discontinued Acute renal failure on CKD stage III: Creatinine elevated more than 2, Possible secondary to diuretics treatment Lasix was discontinued Repeat BMP in a.m., avoid NSAIDs Hypertension: blood pressure stable, continue outpatient meds Disposition: Possible discharge home tomorrow if patient's symptoms of chest pain improved Admission and Anticipated Discharge Date Admission Date: November 02, 2020 Subjective Follow-up visit for pleuritic chest pain: Patient reports still having sharp chest pain while taking breath, Worse with lying down and better when sitting up, Armstrong short of breath and dizzy spell while walking to the bathroom this morning, symptom has resolved Currently vital stable, offers no complaint except for episodes of chest pain No fever or chills Review of Systems Review of Systems: All systems reviewed & are unremarkable except as noted in Subjective Physical Exam Constitutional: WD/WN, vitals as above + obese Eyes: PERRL, conjunctivae normal, anicteric sclerae ENMT: external ear and nose normal, oropharynx normal Neck: trachea midline, no thyromegaly Respiratory: normal respiratory effort, lungs clear to auscultation Cardiovascular: RRR, no murmur, no edema Gastrointestinal (Abdomen): Percussion/Palpation: abdomen soft; abdomen nontender Musculoskeletal: no cyanosis or clubbing, extremities motor strength 5/5 Tenderness noted on anterior chest wall /mostly on the left second and third intercostal space Skin: no rashes, warm and dry Neurologic: PERRL, EOMI, accommodation nl, no face palsy, no dysarthria Psychiatric: A+Ox3, euthymic affect Results & Data Results & Data ([facility]) Vital Signs (Past 12 Hours) Vital Signs Temp Pulse Pulse Resp BP Pulse Ox 11/03/20 15:43 136/59 L 11/03/20 14:30 155/77 H 11/03/20 07:30 36.7 C 74 71 20 139/83 97 (1) Chest pain Chest pain type: unspecified Qualified Code(s): R07.9 - Chest pain, unspecified
[2020-11-03] MEDS ORDERED: predniSONE 20 MG TAB PO STA (15:54)
[2020-11-03] MEDS: predniSONE 10 MG TABLET PO SCH (16:50)
[2020-11-03] MEDS: ACETAMINOPHEN 325 MG TAB PO PRN (20:03)
[2020-11-03] MEDS: ONDANSETRON INJ 2 MG/ML 2 ML VIAL IV PRN (20:03)
[2020-11-03] MEDS: ATORVASTATIN 40 MG TAB PO SCH (20:08)
[2020-11-04] MEDS: LEVOTHYROXINE SODIUM 100 MCG TABLET PO SCH (06:09)
[2020-11-04] MEDS: HEPARIN SOD 5,000 UNIT/0.5 ML VIAL SQ SCH ×3 (06:09→20:40)
[2020-11-04 06:23] LABS: BUN Creatinine Ratio 18.6 (10-20); Calcium 9.6 mg/dl (8.5-10.1); Est GFR (African American) 28.4; Est GFR (Non-African American) 24.5; Potassium 4.6 mmol/L (3.5-5.1)
--- NOTE | 2020-11-04 06:24 | Electrocardiogram Report ---
Test Reason : Blood Pressure : / mmHG Vent. Rate : 079 BPM Atrial Rate : 079 BPM P-R Int : 336 ms QRS Dur : 094 ms QT Int : 406 ms P-R-T Axes : 036 -18 032 degrees QTc Int : 465 ms Atrial-paced rhythm with prolonged AV conduction Inferior infarct , age undetermined Abnormal ECG When compared with ECG of 03-NOV-2020 05:32, Electronic atrial pacemaker has replaced Sinus rhythm Criteria for Inferior infarct is now Present Confirmed by Josse Nance ([id number]) on 11/04/2020 6:24:25 AM Referred By: REFERRED SELF Confirmed By:Josse Nance
[2020-11-04] MEDS: INSULIN ASPART 100 UNITS/ML 3 ML PEN SC SCH ×4 (08:19→20:39)
[2020-11-04] MEDS: INSULIN GLARGINE SOLOSTAR 100 UNITS/ML 3 ML PEN SC SCH (08:20)
[2020-11-04] MEDS: ACETAMINOPHEN 325 MG TAB PO PRN ×2 (08:24→17:25)
[2020-11-04] MEDS: predniSONE 10 MG TABLET PO SCH (08:24)
[2020-11-04] MEDS: PANTOprazole 40 MG TAB PO SCH (08:25)
[2020-11-04] MEDS: GABAPENTIN 600 MG TAB PO SCH ×3 (08:25→20:23)
[2020-11-04] MEDS: ASPIRIN 81 MG ECTAB PO SCH (08:25)
[2020-11-04] MEDS: buPROPion SR 150 MG TABCR PO SCH ×2 (08:25→20:23)
[2020-11-04] MEDS: MULTIVITAMIN TAB PO SCH (08:25)
[2020-11-04] MEDS: carvediloL 6.25 MG TAB PO SCH ×2 (08:26→20:23)
[2020-11-04] MEDS: CITALOPRAM 40 MG TAB PO SCH (08:26)
[2020-11-04] MEDS: hydrALAZINE TAB 50 MG TAB PO SCH ×3 (08:26→20:00)
[2020-11-04] MEDS: POLYETHYLENE (MIRALAX) 17 GM PACK PO PRN (08:53)
--- NOTE | 2020-11-04 11:56 | Cardiology Progress Note ---
Date of Service November 04, 2020 Assessment & Plan (1) Chest pain: Patient is a 59-year-old female with complex constellation of medical issues as outlined in HPI. She presents now with symptoms atypical for angina with pleuritic discomfort and dizziness sharp jabbing pain to the left arm of 3 days on duration nearly continuous. No signs of ischemia by EKG or cardiac enzyme. Echocardiogram without wall motion abnormality. Acute coronary syndrome is not suggested by findings Evaluation including venous duplex and VQ scan without thromboembolic phenomena. No pericardial effusion on echocardiogram Rhythm is predominantly atrially paced without arrhythmia on telemetry Recommendations: Elevated sed rate observed. Agree with course of corticosteroids. KAPIL and antihistone antibodies ordered given chronic hydralazine use Plan as otherwise outlined (2) (HFpEF) heart failure with preserved ejection fraction: Appears compensated on clinical exam today (3) Diastolic heart failure: (4) MINISTERIO on CPAP: (5) CKD (chronic kidney disease), stage III: Admission and Anticipated Discharge Date Admission Date: November 02, 2020 Subjective Patient was seen and examined, chart, medications, telemetry reviewed. Still with chest discomfort on inspiration. No dizziness or lightheadedness. No fevers chills. Blood pressure controlled. Physical Exam Constitutional: + morbidly obese Eyes: PERRL, conjunctivae normal, anicteric sclerae ENMT: external ear and nose normal, oropharynx normal Neck: trachea midline, no thyromegaly + thick neck Respiratory: normal respiratory effort, lungs clear to auscultation Cardiovascular: Rate/Rhythm: regular rate and regular rhythm Heart Sounds: normal S1 and normal S2; no gallop and no murmur Palpation: normal PMI Vessels: normal carotid upstroke and radial pulses present; no JVD and no carotid bruit Extremities: + edema (Trace edema with superficial varicosities) Gastrointestinal (Abdomen): normal bowel sounds, soft, nontender, no hepatosplenomegaly Musculoskeletal: no cyanosis or clubbing, extremities motor strength 5/5 Skin: no rashes, warm and dry Neurologic: PERRL, EOMI, accommodation nl, no face palsy, no dysarthria Psychiatric: A+Ox3, euthymic affect Results & Data ([facility]) Vital Signs (Past 12 Hours) Vital Signs Temp Pulse Pulse Resp BP Pulse Ox Pulse Ox 11/04/20 11:28 36.7 C 64 18 145/82 H 95 11/04/20 10:07 98 04/17/21 09:39 61 11/04/20 07:37 36.6 C 71 18 149/77 H 98 11/04/20 03:39 36.4 C L 69 18 125/74 95 11/04/20 00:12 66 Laboratory Results Laboratory Results - last 24 hr 11/03/20 11/03/20 11/03/20 06:33 14:09 14:28 ESR 45 H Sodium Potassium Chloride Carbon Dioxide Anion Gap BUN Creatinine Est Cr Clr Drug Dosing Est GFR ( Amer) Est GFR (Non-Af Amer) BUN/Creatinine Ratio Glucose POC Glucose 113 H Calcium KAPIL Screen Pending Double Strand DNA Ab Pending Histone Ab, Qual Pending 11/03/20 11/03/20 11/03/20 14:28 15:43 16:20 ESR Sodium Potassium Chloride Carbon Dioxide Anion Gap BUN Creatinine Est Cr Clr Drug Dosing Est GFR ( Amer) Est GFR (Non-Af Amer) BUN/Creatinine Ratio Glucose POC Glucose 178 H 165 H Calcium KAPIL Screen Double Strand DNA Ab Cancelled Histone Ab, Qual 11/03/20 11/04/20 11/04/20 20:07 05:52 07:46 ESR Sodium 137 Potassium 4.6 Chloride 104 Carbon Dioxide 29 Anion Gap 5.0 BUN 39 H Creatinine 2.12 H Est Cr Clr Drug Dosing 34.0 Est GFR ( Amer) 28.4 Est GFR (Non-Af Amer) 24.5 BUN/Creatinine Ratio 18.6 Glucose 198 H POC Glucose 239 H 181 H Calcium 9.6 KAPIL Screen Double Strand DNA Ab Histone Ab, Qual 11/04/20 11:47 ESR Sodium Potassium Chloride Carbon Dioxide Anion Gap BUN Creatinine Est Cr Clr Drug Dosing Est GFR ( Amer) Est GFR (Non-Af Amer) BUN/Creatinine Ratio Glucose POC Glucose 237 H Calcium KAPIL Screen Double Strand DNA Ab Histone Ab, Qual (1) Chest pain Chest pain type: unspecified Qualified Code(s): R07.9 - Chest pain, unspecified
[2020-11-04] MEDS ORDERED: ALUMINUM/MAGNESIUM/SIMETH (MAALOX MAX) 30 ML UDC PO PRN (13:41)
[2020-11-04] MEDS ORDERED: PROMETHAZINE HCL 12.5 MG in SODIUM CHLORIDE 0.9% 50 ML IV PRN (13:41)
--- NOTE | 2020-11-04 13:49 | Hospitalist Progress Note ---
Date of Service November 04, 2020 Assessment & Plan (1) Chest pain: Admitted with pleuritic chest pain, possible costochondritis?- Tenderness on left chest wall on palpation Appreciate input from cardiology, detailed cardiac work-up showed no evidence of cardiac ischemia/or acute coronary event Recommends outpatient cardiac stress test Patient had VQ scan of lung which was low probability for pulmonary embolism/lower extremity Doppler negative for DVT She is counseled regarding possible benign nature of the chest pain ESR borderline elevated: 45 Suggestive of inflammatory disease- Continue pain control/cannot utilize NSAIDs for acute renal failure has underl zbigniew chronic kidney disease: Patient started on low-dose prednisone 10 mg daily Reports not much improvement of pruritic sharp chest pain No febrile episode or flulike symptoms Continue to monitor Intractable headache Prior history of migraine headaches. Pain control with as needed tramadol, ordered for antiemetics as needed Zofran or IV Phenergan to utilize for nausea Chronic CHF with preserved left ventricular function: Volume status stable, no evidence of decompensated CHF or volume overload Appreciate input from cardiology, diuretics/Lasix discontinued Acute renal failure on CKD stage III: Creatinine elevated more than 2, Possible secondary to diuretics treatment Lasix was discontinued Follow BMP., avoid NSAIDs Hypertension: blood pressure stable, continue outpatient meds Disposition: Patient will need continued hospital stay for ongoing pleuritic chest pain, headache Expected to be discharged home when medically stable Admission and Anticipated Discharge Date Admission Date: November 02, 2020 Subjective Follow-up visit for chest pain: Patient started on prednisone yesterday for possible underlying inflammatory component of chest pain, Reports not much improvement with pleuritic chest pain, it still hurts when taking deep breath. Developed intractable headache earlier today, leading to nausea and episode of vomit At present does not have any complaint of abdominal pain, nausea has improved Frontal headache is the only issue. Patient reports of having prior migraine headache It does not appear to be like her prior migraine attack Tylenol did not offer much relief, order for as needed tramadol Does not have any fever chills no shortness of breath no dyspnea on exertion Review of Systems Review of Systems: All systems reviewed & are unremarkable except as noted in Subjective Physical Exam Constitutional: WD/WN, vitals as above + obese Eyes: PERRL, conjunctivae normal, anicteric sclerae ENMT: external ear and nose normal, oropharynx normal Neck: trachea midline, no thyromegaly Respiratory: normal respiratory effort, lungs clear to auscultation Cardiovascular: RRR, no murmur, no edema Gastrointestinal (Abdomen): Percussion/Palpation: abdomen soft; abdomen nont terry Musculoskeletal: no cyanosis or clubbing, extremities motor strength 5/5 Skin: no rashes, warm and dry Neurologic: PERRL, EOMI, accommodation nl, no face palsy, no dysarthria Psychiatric: A+Ox3, euthymic affect Results & Data Results & Data ([facility]) Vital Signs (Past 12 Hours) Vital Signs Temp Pulse Pulse Resp BP Pulse Ox Pulse Ox 11/04/20 12:53 36.9 C 78 18 153/83 H 94 11/04/20 11:28 36.7 C 64 18 145/82 H 95 11/04/20 10:07 98 11/04/20 09:39 61 11/04/20 07:37 36.6 C 71 18 149/77 H 98 11/04/20 03:39 36.4 C L 69 18 125/74 95 (1) Chest pain Chest pain type: unspecified Qualified Code(s): R07.9 - Chest pain, unspecified
[2020-11-04] MEDS: ONDANSETRON INJ 2 MG/ML 2 ML VIAL IV PRN (13:54)
[2020-11-04] MEDS: traMADol HCL 50 MG TABLET PO PRN (13:55)
[2020-11-04] MEDS: ATORVASTATIN 40 MG TAB PO SCH (20:22)
[2020-11-04] MEDS ORDERED: INSULIN GLARGINE SOLOSTAR 100 UNITS/ML 3 ML PEN SC STA (20:35)
[2020-11-04] MEDS ORDERED: INSULIN GLARGINE SOLOSTAR 100 UNITS/ML 3 ML PEN SC ONE (21:00)
[2020-11-05] MEDS: LEVOTHYROXINE SODIUM 100 MCG TABLET PO SCH (06:27)
[2020-11-05] MEDS: HEPARIN SOD 5,000 UNIT/0.5 ML VIAL SQ SCH ×3 (06:27→20:18)
[2020-11-05 06:42] LABS: BUN Creatinine Ratio 20.1 (10-20); Calcium 9.2 mg/dl (8.5-10.1); Creatinine Clr Calc Pharmacy 36.2 ml/min; Est GFR (African American) 30.6; Est GFR (Non-African American) 26.4; Potassium 4.8 mmol/L (3.5-5.1)
[2020-11-05] MEDS: INSULIN ASPART 100 UNITS/ML 3 ML PEN SC SCH ×4 (08:42→20:19)
[2020-11-05] MEDS: INSULIN GLARGINE SOLOSTAR 100 UNITS/ML 3 ML PEN SC SCH (08:44)
[2020-11-05] MEDS: buPROPion SR 150 MG TABCR PO SCH ×2 (08:45→20:17)
[2020-11-05] MEDS: GABAPENTIN 600 MG TAB PO SCH ×3 (08:45→20:17)
[2020-11-05] MEDS: hydrALAZINE TAB 50 MG TAB PO SCH ×3 (08:45→20:17)
[2020-11-05] MEDS: MULTIVITAMIN TAB PO SCH (08:46)
[2020-11-05] MEDS: PANTOprazole 40 MG TAB PO SCH (08:46)
[2020-11-05] MEDS: carvediloL 6.25 MG TAB PO SCH ×2 (08:46→20:18)
[2020-11-05] MEDS: CITALOPRAM 40 MG TAB PO SCH (08:46)
[2020-11-05] MEDS: ASPIRIN 81 MG ECTAB PO SCH (08:46)
[2020-11-05] MEDS: predniSONE 10 MG TABLET PO SCH (08:46)
[2020-11-05] MEDS: POLYETHYLENE (MIRALAX) 17 GM PACK PO PRN (09:30)
[2020-11-05] MEDS ORDERED: predniSONE 10 MG TABLET PO STA (10:51)
--- NOTE | 2020-11-05 11:01 | Hospitalist Progress Note ---
Date of Service November 05, 2020 Assessment & Plan (1) Chest pain: Admitted with pleuritic chest pain, possible underlying inflammatory cause Tenderness on left chest wall on palpation Appreciate input from cardiology, detailed cardiac work-up showed no evidence of cardiac ischemia/or acute coronary event Patient current presentation is unlikely due to underlying ischemic cardiac disease: Recommends outpatient cardiac stress test No evidence of PE: Patient had VQ scan of lung which was low probability for pulmonary embolism/lower extremity Doppler negative for DVT She is counseled regarding possible benign nature of the chest pain ESR borderline elevated: 45 Suggestive of inflammatory disease- /cannot utilize NSAIDs for acute renal failure has underlying chronic kidney disease: Patient started on low-dose prednisone 10 mg daily Patient reported improvement of symptoms somewhat We will increase the prednisone to 40 mg daily, watch for recurrence of chest pain with activity We will need to be discharged on Medrol Dosepak Intractable headache Symptom has resolved completely Prior history of migraine headaches. Possible flare for hospital admission, received 1 dose of tramadol yesterday Chronic CHF with preserved left ventricular function: Volume status stable, no evidence of decompensated CHF or volume overload Appreciate input from cardiology, diuretics/Lasix discontinued Acute renal failure on CKD stage III:-Resolved Creatinine elevated more than 2, Possible secondary to diuretics treatment Lasix was discontinued , avoid NSAIDs Creatinine improved to baseline Hypertension: blood pressure stable, continue outpatient meds Disposition: Patient will need continued hospital stay for ongoing pleuritic chest pain, Expected to be discharged home in next 1 to 2 days symptoms resolved/improved Admission and Anticipated Discharge Date Admission Date: November 04, 2020 Subjective Follow-up visit for pleuritic chest pain: Patient reports feeling much better today, has minimum chest pain while taking deep breath. Headache almost gone, No fever or chills, denies of any dyspnea on exertion no cough or shortness of breath. Initial plan was to discharge patient home today, patient was asked to ambulate on the hallway to make sure no recurrence of symptoms happens with activity After walking long-term, patient reports worsening of chest pain, associated with dizzy spell Patient will stay in the hospital for further observation Review of Systems Review of Systems: All systems reviewed & are unremarkable except as noted in Subjective Physical Exam Constitutional: WD/WN, vitals as above + obese Eyes: PERRL, conjunctivae normal, anicteric sclerae ENMT: external ear and nose normal, oropharynx normal Neck: trachea midline, no thyromegaly Respiratory: normal respiratory effort, lungs clear to auscultation Cardiovascular: RRR, no murmur, no edema Gastrointestinal (Abdomen): Percussion/Palpation: abdomen soft; abdomen nontender Musculoskeletal: no cyanosis or clubbing, extremities motor strength 5/5 Skin: no rashes, warm and dry Neurologic: PERRL, EOMI, accommodation nl, no face palsy, no dysarthria Psychiatric: A+Ox3, euthymic affect Results & Data Results & Data ([facility]) Vital Signs (Past 12 Hours) Vital Signs Temp Pulse Pulse Resp BP Pulse Ox 11/05/20 10:43 82 19 124/79 97 11/05/20 07:58 82 11/05/20 07:30 36.8 C 65 18 131/74 97 11/05/20 04:22 36.8 C 68 18 143/80 H 95 (1) Chest pain Chest pain type: unspecified Qualified Code(s): R07.9 - Chest pain, unspecified
--- NOTE | 2020-11-05 12:07 | Cardiology Progress Note ---
Date of Service November 05, 2020 Assessment & Plan (1) Chest pain: Patient is a 59-year-old female with complex constellation of medical issues as outlined in HPI. She presents now with symptoms atypical for angina with pleuritic discomfort and dizziness sharp jabbing pain to the left arm of 3 days on duration nearly continuous. No signs of ischemia by EKG or cardiac enzyme. Echocardiogram without wall motion abnormality. Acute coronary syndrome is not suggested by findings Evaluation including venous duplex and VQ scan without thromboembolic phenomena. No pericardial effusion on echocardiogram Rhythm is predominantly atrially paced without arrhythmia on telemetry Recommendations: Elevated sed rate observed. Agree with course of increased dose corticosteroids. KAPIL and antihistone antibodies ordered given chronic hydralazine use Plan as otherwise outlined (2) (HFpEF) heart failure with preserved ejection fraction: Appears compensated on clinical exam today (3) Diastolic heart failure: (4) MINISTERIO on CPAP: (5) CKD (chronic kidney disease), stage III: Improving Admission and Anticipated Discharge Date Admission Date: November 04, 2020 Subjective Patient seen, ambulatory in [facility]. Noted initial significant improvement with low-dose prednisone but still with pleuritic pain with ambulation. Results & Data ([facility]) Vital Signs (Past 12 Hours) Vital Signs Temp Pulse Pulse Resp BP Pulse Ox Pulse Ox 11/05/20 11:47 36.8 C 65 18 147/83 H 94 11/05/20 11:14 96 11/05/20 10:43 82 19 124/79 97 11/05/20 07:58 82 11/05/20 07:30 36.8 C 65 18 131/74 97 11/05/20 04:22 36.8 C 68 18 143/80 H 95 Laboratory Results Laboratory Results - last 24 hr 11/04/20 11/04/20 11/04/20 16:35 19:57 19:59 Sodium Potassium Chloride Carbon Dioxide Anion Gap BUN Creatinine Est Cr Clr Drug Dosing Est GFR ( Amer) Est GFR (Non-Af Amer) BUN/Creatinine Ratio Glucose POC Glucose 154 H 378 H* 394 H* Calcium 11/04/20 11/05/20 11/05/20 20:01 06:11 07:39 Sodium 142 Potassium 4.8 Chloride 108 H Carbon Dioxide 31 Anion Gap 3.0 BUN 40 H Creatinine 1.99 H Est Cr Clr Drug Dosing 36.2 Est GFR ( Amer) 30.6 Est GFR (Non-Af Amer) 26.4 BUN/Creatinine Ratio 20.1 H Glucose 109 H POC Glucose 342 H* 108 H Calcium 9.2 11/05/20 11:32 Sodium Potassium Chloride Carbon Dioxide Anion Gap BUN Creatinine Est Cr Clr Drug Dosing Est GFR ( Amer) Est GFR (Non-Af Amer) BUN/Creatinine Ratio Glucose POC Glucose 244 H Calcium (1) Chest pain Chest pain type: unspecified Qualified Code(s): R07.9 - Chest pain, unspecified
[2020-11-05] MEDS: ATORVASTATIN 40 MG TAB PO SCH (20:17)
[2020-11-06] MEDS ORDERED: MELATONIN 3 MG TAB PO PRN (00:23)
[2020-11-06] MEDS: ACETAMINOPHEN 325 MG TAB PO PRN ×3 (01:31→14:08)
[2020-11-06] MEDS: HEPARIN SOD 5,000 UNIT/0.5 ML VIAL SQ SCH ×3 (06:38→21:01)
[2020-11-06] MEDS: LEVOTHYROXINE SODIUM 100 MCG TABLET PO SCH (06:38)
[2020-11-06] MEDS: hydrALAZINE TAB 50 MG TAB PO SCH ×3 (08:19→21:00)
[2020-11-06] MEDS: carvediloL 6.25 MG TAB PO SCH ×2 (08:19→21:00)
[2020-11-06] MEDS: buPROPion SR 150 MG TABCR PO SCH ×2 (08:20→20:57)
[2020-11-06] MEDS: GABAPENTIN 600 MG TAB PO SCH ×3 (08:20→20:59)
[2020-11-06] MEDS: MULTIVITAMIN TAB PO SCH (08:20)
[2020-11-06] MEDS: PANTOprazole 40 MG TAB PO SCH (08:20)
[2020-11-06] MEDS: ASPIRIN 81 MG ECTAB PO SCH (08:20)
[2020-11-06] MEDS: CITALOPRAM 40 MG TAB PO SCH (08:20)
[2020-11-06] MEDS: INSULIN GLARGINE SOLOSTAR 100 UNITS/ML 3 ML PEN SC SCH (08:21)
[2020-11-06] MEDS: INSULIN ASPART 100 UNITS/ML 3 ML PEN SC SCH ×4 (08:21→20:58)
[2020-11-06] MEDS ORDERED: predniSONE 20 MG TAB PO SCH (09:00)
--- NOTE | 2020-11-06 13:42 | Cardiology Progress Note ---
Date of Service November 06, 2020 Assessment & Plan (1) Chest pain: Patient is a 59-year-old female with complex constellation of medical issues as outlined in HPI. She presents now with symptoms atypical for angina with pleuritic discomfort and dizziness sharp jabbing pain to the left arm of 3 days on duration nearly continuous. No signs of ischemia by EKG or cardiac enzyme. Echocardiogram without wall motion abnormality. Acute coronary syndrome is not suggested by findings Evaluation including venous duplex and VQ scan without thromboembolic phenomena. No pericardial effusion on echocardiogram Rhythm is predominantly atrially paced without arrhythmia on telemetry Impression: Pleuritic chest pain without evidence of ACS Recommendations: Continue cardiac medications as prescribed. Slow prednisone taper on discharge. Will need follow-up post hospitalization. Stress nuclear imaging to complete evaluation (2) (HFpEF) heart failure with preserved ejection fraction: Appears compensated on clinical exam today (3) Diastolic heart failure: (4) MINISTERIO on CPAP: (5) CKD (chronic kidney disease), stage III: Improving Admission and Anticipated Discharge Date Admission Date: November 04, 2020 Subjective Patient seen, ambulatory in [facility]. Overall slowly improving but still with pleuritic pain on deep inspiration. No tachypalpitations dizziness or lightheadedness no syncope or near syncope. No arrhythmias on telemetry. Was able to wear CPAP last night without Physical Exam Constitutional: + morbidly obese Eyes: PERRL, conjunctivae normal, anicteric sclerae ENMT: external ear and nose normal, oropharynx normal Neck: trachea midline, no thyromegaly + thick neck Respiratory: normal respiratory effort, lungs clear to auscultation Cardiovascular: Rate/Rhythm: regular rate and regular rhythm Heart Sounds: normal S1 and normal S2; no gallop Palpation: normal PMI Vessels: normal carotid upstroke and radial pulses present; no JVD and no carotid bruit Ex tremities: + edema (Trace edema with superficial varicosities) Gastrointestinal (Abdomen): normal bowel sounds, soft, nontender, no hepatosplenomegaly Musculoskeletal: no cyanosis or clubbing, extremities motor strength 5/5 Skin: no rashes, warm and dry Neurologic: PERRL, EOMI, accommodation nl, no face palsy, no dysarthria Psychiatric: A+Ox3, euthymic affect Results & Data ([facility]) Vital Signs (Past 12 Hours) Vital Signs Temp Pulse Resp BP Pulse Ox 11/06/20 07:37 36.5 C 74 18 161/85 H 98 Laboratory Results Laboratory Results - last 24 hr 11/05/20 11/05/20 11/06/20 16:37 20:09 07:28 POC Glucose 188 H 287 H 146 H 11/06/20 11:22 POC Glucose 271 H (1) Chest pain Chest pain type: unspecified Qualified Code(s): R07.9 - Chest pain, unspecified
--- NOTE | 2020-11-06 14:58 | Hospitalist Progress Note ---
Date of Service November 06, 2020 Assessment & Plan (1) Chest pain: Admitted with pleuritic chest pain, possible underlying inflammatory cause Tenderness on left chest wall on palpation Appreciate input from cardiology, detailed cardiac work-up showed no evidence of cardiac ischemia/or acute coronary event Patient current presentation is unlikely due to underlying ischemic cardiac disease: Recommends outpatient cardiac stress test No evidence of PE: Patient had VQ scan of lung which was low probability for pulmonary embolism/lower extremity Doppler negative for DVT She is counseled regarding possible benign nature of the chest pain Started on prednisone, pleuritic chest pain has continued to improve ESR borderline elevated: 45 Suggestive of inflammatory disease- /cannot utilize NSAIDs for acute renal failure has underlying chronic kidney disease: She will be discharged home with Medrol Dosepak Headache Prior history of migraine headaches. Continue as needed tramadol Chronic CHF with preserved left ventricular function: Volume status stable, no evidence of decompensated CHF or volume overload Appreciate input from cardiology, diuretics/Lasix discontinued Acute renal failure on CKD stage III:-Resolved Creatinine elevated more than 2, Possible secondary to diuretics treatment Lasix was discontinued , avoid NSAIDs Creatinine improved to baseline Hypertension: blood pressure stable, continue outpatient meds Disposition: Plan to discharge home tomorrow Admission and Anticipated Discharge Date Admission Date: November 04, 2020 Subjective Patient reports much improvement of pleuritic chest pain, was able to ambulate on the hallway for approximately 45 times, At the end of her lab, started to have chest pain/chest tightness, no dizzy spell or lightheadedness like yesterday No cough no fever or chills Had frontal headache this morning, no sinus pressure no nasal congestion Review of Systems Review of Systems: All systems reviewed & are unremarkable except as noted in Subjective Physical Exam Constitutional: WD/WN, vitals as above + obese Eyes: PERRL, conjunctivae normal, anicteric sclerae ENMT: external ear and nose normal, oropharynx normal Neck: trachea midline, no thyromegaly Respiratory: normal respiratory effort, lungs clear to auscultation Cardiovascular: RRR, no murmur, no edema Gastrointestinal (Abdomen): Percussion/Palpation: abdomen soft; abdomen nontender Musculoskeletal: no cyanosis or clubbing, extremities motor strength 5/5 Skin: no rashes, warm and dry Neurologic: PERRL, EOMI, accommodation nl, no face palsy, no dysarthria Psychiatric: A+Ox3, euthymic affect Results & Data Results & Data ([facility]) Vital Signs (Past 12 Hours) Vital Signs Temp Pulse Resp BP Pulse Ox 11/06/20 14:51 36.9 C 79 18 159/86 H 95 11/06/20 07:37 36.5 C 74 18 161/85 H 98 (1) Chest pain Chest pain type: unspecified Qualified Code(s): R07.9 - Chest pain, unspecified
[2020-11-06] MEDS: traMADol HCL 50 MG TABLET PO PRN ×2 (15:25→20:59)
[2020-11-06] MEDS ORDERED: INSULIN GLARGINE SOLOSTAR 100 UNITS/ML 3 ML PEN SC STA (20:21)
[2020-11-06] MEDS: ATORVASTATIN 40 MG TAB PO SCH (21:00)
[2020-11-07] MEDS: LEVOTHYROXINE SODIUM 100 MCG TABLET PO SCH (06:03)
[2020-11-07] MEDS: HEPARIN SOD 5,000 UNIT/0.5 ML VIAL SQ SCH (06:04)
[2020-11-07] MEDS: CITALOPRAM 40 MG TAB PO SCH (08:36)
[2020-11-07] MEDS: carvediloL 6.25 MG TAB PO SCH (08:36)
[2020-11-07] MEDS: hydrALAZINE TAB 50 MG TAB PO SCH (08:37)
[2020-11-07] MEDS: MULTIVITAMIN TAB PO SCH (08:37)
[2020-11-07] MEDS: ASPIRIN 81 MG ECTAB PO SCH (08:37)
[2020-11-07] MEDS: GABAPENTIN 600 MG TAB PO SCH (08:38)
[2020-11-07] MEDS: buPROPion SR 150 MG TABCR PO SCH (08:38)
[2020-11-07] MEDS: PANTOprazole 40 MG TAB PO SCH (08:39)
[2020-11-07] MEDS: INSULIN GLARGINE SOLOSTAR 100 UNITS/ML 3 ML PEN SC SCH (08:42)
[2020-11-07] MEDS: INSULIN ASPART 100 UNITS/ML 3 ML PEN SC SCH (08:43)
[2020-11-07] MEDS ORDERED: predniSONE 20 MG TAB PO SCH (09:00)
--- NOTE | 2020-11-07 09:18 | Hospitalist Progress Note ---
Date of Service November 07, 2020 Assessment & Plan (1) Chest pain: Admitted with pleuritic chest pain, possible underlying inflammatory cause Tenderness on left chest wall on palpation Appreciate input from cardiology, detailed cardiac work-up showed no evidence of cardiac ischemia/or acute coronary event Patient current presentation is unlikely due to underlying ischemic cardiac disease: Recommends outpatient cardiac stress test Chest pain symptoms improved after starting on steroids No evidence of PE: Patient had VQ scan of lung which was low probability for pulmonary embolism/lower extremity Doppler negative for DVT She is counseled regarding possible benign nature of the chest pain ESR borderline elevated: 45 Suggestive of inflammatory disease- /cannot utilize NSAIDs for acute renal failure has underlying chronic kidney disease: She is discharged home with Medrol Dosepak Per cardiology: There is possible concern for hydralazine/drug-induced lupus causing patient's presenting symptom Serology for KAPIL/antidouble-stranded DNA/histone antibody sent: Report pending If patient's serology is positive, hydralazine needs to be discontinued, and start on alternative antihypertensive drugs She has family physician Dr. Neal updated Headache Resolved no symptoms today Prior history of migraine headaches. Continue as needed tramadol Chronic CHF with preserved left ventricular function: Volume status stable, no evidence of decompensated CHF or volume overload Appreciate input from cardiology, diuretics/Lasix discontinued Patient did not had any evidence of decompensated heart failure Acute renal failure on CKD stage III:-Resolved Creatinine elevated more than 2, Possible secondary to diuretics treatment Lasix was discontinued , avoid NSAIDs Creatinine improved to baseline Hypertension: blood pressure stable, continue outpatient meds Hydralazine may needs to be discontinued if serology suggestive of drug-induced lupus Disposition: Stable to be discharged home today Admission and Anticipated Discharge Date Admission Date: November 04, 2020 Subjective Follow-up visit for chest pain/headache: Patient sitting up in chair, feels much better today, no recurrence of headache: Pleuritic chest pain has improved, walked on the hallway today Has minimal discomfort, which also goes away after taking rest No fever or chills, no shortness of breath no cough no hypoxia Stable to be discharged home today Review of Systems Review of Systems: All systems reviewed & are unremarkable except as noted in Subjective Physical Exam Constitutional: WD/WN, vitals as above + obese Eyes: PERRL, conjunctivae normal, anicteric sclerae ENMT: external ear and nose normal, oropharynx normal Neck: trachea midline, no thyromegaly Respiratory: normal respiratory effort, lungs clear to auscultation Cardiovascular: RRR, no murmur, no edema Gastrointestinal (Abdomen): Percussion/Palpation: abdomen soft; abdomen nontender Musculoskeletal: no cyanosis or clubbing, extremities motor strength 5/5 Skin: no rashes, warm and dry Neurologic: PERRL, EOMI, accommodation nl, no face palsy, no dysarthria Psychiatric: A+Ox3, euthymic affect Results & Data Results & Data ([facility]) Vital Signs (Past 12 Hours) Vital Signs Temp Pulse Resp BP Pulse Ox 11/07/20 08:08 37.0 C 85 18 148/78 H 94 11/06/20 22:14 36.7 C 69 18 131/75 96 (1) Chest pain Chest pain type: unspecified Qualified Code(s): R07.9 - Chest pain, unspecified
--- NOTE | 2020-11-07 10:06 | Discharge Summary ---
Date of Service November 07, 2020 Admission HPI Per Admitting Provider This is a 59 year old F with PMH sick sinus syndrome s/p pacemaker, paroxysmal atrial tachycardia, rheumatic mitral regurgitation, DM II, CKD III, HTN, HLD, diastolic CHF, MINISTERIO on CPAP, seizure, obesity with hx of gastric bypass hypothyroidism, diabetic neuropathy, depression who presented to ER due to chest pain x 3 days. Pain is located substernally, feels like something sitting on chest, worse with deep breathing, lying flat, radiates to L arm, constant and every time she breaths. Nothing has made it better. Today she admits to having FLORES, SOB at rest, and dizziness. She feels sharp pain in LUE is different. It occurred for 5 minutes today and its gone. Dizziness started today. She has hx of vertigo in past but today feels off balance. Dx with BPPV and treated with therapy and oral therapy. She has never experienced this in past in regards to past.. She denies f/c/s, syncope, cough, URI sx, covid exposure, n/v/d, abdominal pain. She does have hx of gerd and this does not feel similar. She takes PPI and this is controlled. She has chronic tinnitus and this is unchanged. Denies any change in medication or change in weight. She admits to OLSON, but no lower extremity swelling. Hx of CHF and she feels like it does feel like this, but doesn't have any other sx. She has hx of PPM and had it interrogated 6 months ago, due in a week or so. She follows Dr. Stevenson for cardiology. Hx of depression controlled on medication. She had a nephew pass away from [employer] 6 months ago. In ED patient remained hemodynamically stable although mildly hypertensive. Lab work notable for elevated BUN/creatinine 20 and 1.71 which is at patient's baseline. Her D-dimer was mildly elevated at 530. CBC generally unremarkable. Covid and influenza screen negative. Head CT without acute abnormality. Chest x-ray did reveal mild pulmonary vascular congestion and cardiomegaly. Otherwise no acute abnormality. Principal Diagnosis Chest pain: No evidence of acute coronary event: possible inflammatory disease Chronic hypertension Acute renal failure on CKD stage III Discharge Exam Constitutional WD/WN, vitals as above + obese Eyes PERRL, conjunctivae normal, anicteric sclerae ENMT external ear and nose normal, oropharynx normal Neck trachea midline, no thyromegaly Respiratory normal respiratory effort, lungs clear to auscultation Cardiovascular RRR, no murmur, no edema Gastrointestinal (Abdomen) Percussion/Palpation: abdomen soft; abdomen nontender Musculoskeletal no cyanosis or clubbing, extremities motor strength 5/5 Skin no rashes, warm and dry Neurologic PERRL, EOMI, accommodation nl, no face palsy, no dysarthria Psychiatric A+Ox3, euthymic affect Discharge Data Allergies Allergy/AdvReac Type Severity Reaction Status Date / Time CHIDI Inhibitors AdvReac Mild COUGH Verified 11/02/20 14:17 Consultations 11/02/20 14:04 ED Decision to Admit Stat 11/02/20 14:46 Consult Cardiology Routine Ordered Studies 11/02/20 12:43 CT head/brain wo con Stat 11/02/20 14:46 US venous doppler LE BI Routine Hospital Course (1) Chest pain: Admitted with pleuritic chest pain, possible underlying inflammatory cause Tenderness on left chest wall on palpation Appreciate input from cardiology, detailed cardiac work-up showed no evidence of cardiac ischemia/or acute coronary event Patient current presentation is unlikely due to underlying ischemic cardiac disease: Recommends outpatient cardiac stress test Chest pain symptoms improved after starting on steroids No evidence of PE: Patient had VQ scan of lung which was low probability for pulmonary embolism/lower extremity Doppler negative for DVT She is counseled regarding possible benign nature of the chest pain ESR borderline elevated: 45 Suggestive of inflammatory disease- /cannot utilize NSAIDs for acute renal failure has underlying chronic kidney disease: She is discharged home with Medrol Dosepak Per cardiology: There is possible concern for hydralazine/drug-induced lupus causing patient's presenting symptom Serology for KAPIL/antidouble-stranded DNA/histone antibody sent: Report pending If patient's serology is positive, hydralazine needs to be discontinued, and start on alternative antihypertensive drugs She has family physician Dr. Rojas updated Headache Resolved no symptoms today Prior history of migraine headaches. Continue as needed tramadol Chronic CHF with preserved left ventricular function: Volume status stable, no evidence of decompensated CHF or volume overload Appreciate input from cardiology, diuretics/Lasix discontinued Patient did not had any evidence of decompensated heart failure Acute renal failure on CKD stage III:-Resolved Creatinine elevated more than 2, Possible secondary to diuretics treatment Lasix was discontinued , avoid NSAIDs Creatinine improved to baseline Hypertension: blood pressure stable, continue outpatient meds Hydralazine may needs to be discontinued if serology suggestive of drug-induced lupus Disposition: Stable to be discharged home today Total Time Total Time Spent Total Time Spent (In Minutes): 40 minutes Total Time Includes: Examination of the Patient, Discharge Planning and Medication Reconciliation Discharge Plan Discharge Items Patient Disposition: Home - Self-Care Reason For Visit: CHEST PAIN Discharge Diagnosis: Chest pain: No evidence of acute coronary event: possible inflammatory disease Chronic hypertension Acute renal failure on CKD stage III Activity: Resume your previous activity Non-emergency contact: Primary Care Provider Call non-emergency contact if: you have any medication questions Follow-up/Referrals: Luis Fernando Rojas MD [Primary Care Provider] - 11/08/20 11:00 am (Date & Time 11/08/2020 11:00 AM Provider Luis Fernando Rojas MD [facility] ) Diet: Carb Consistent or DM2 and Heart Healthy Addtl Attending Provider Instructions: Please take all medications as instructed on discharge list below. It is recommended that you follow-up with your primary care physician within 1-2 weeks of hospital discharge to ensure you are still doing well. Please call if you have any questions or problems. You can reach a [facility] hospitalist on duty at [facility] 24 hours a day by calling [phone] will need cardiac stress test as an outpatient Dr. Godoy's office will schedule Addtl Marketing And Promotions Manager Provider Instructions: Do not take group of medications belonging to NSAIDs group -can cause worsening of your kidney function. List Of these medications includes but not limited to: Diclofenac Ibuprofen, Motrin, Advil Toradol,ketorolac Naproxen, Aleve, Naprosyn You can take Tylenol as needed for pain or fever When buying [id number] pain medications please consult with pharmacy if you are not sure regarding ingredients, as a lot of the pain medications have combination of NSAIDs and Tylenol. Pending Studies at Discharge: No Stand-Alone Forms: My [facility], Work/School Release (Inpt), Smoking Cessation Medications and DC Order Prescriptions: New methylprednisolone [Medrol (Gabe)] 4 mg tablets,dose pack 4 mg PO UD Qty: 21 RF: 0 Continued doxycycline hyclate 20 mg Tablet 20 mg PO BID RF: 0 furosemide 40 mg Tablet 20 mg PO MOWEFR RF: 0 furosemide 40 mg tablet 40 mg PO SUTUTHSA RF: 0 carvedilol 6.25 mg Tablet 6.25 mg PO BID RF: 0 multivitamin Tablet 1 tab PO QAM RF: 0 gabapentin 600 mg Tablet 600 mg PO TID RF: 0 Lantus U-100 Insulin 100 unit/mL Solution 23 unit SUBCUT QAM RF: 0 citalopram 40 mg Tablet 40 mg PO QAM RF: 0 levothyroxine [Synthroid] 100 mcg Tablet 100 mcg PO QAM RF: 0 hydralazine 50 mg Tablet 50 mg PO TID RF: 0 Humalog U-100 Insulin 100 unit/mL Cartridge 1 sliding scale dose SUBCUT UD RF: 0 atorvastatin 40 mg Tablet 40 mg PO PM RF: 0 pantoprazole 40 mg Tablet,Delayed Release (Dr/Ec) 40 mg PO QAM RF: 0 Ozempic 1 mg/dose (4 mg/3 mL) pen injector 4 mg SUBCUT WK RF: 0 bupropion HCl [Wellbutrin SR] 150 mg Tablet Sustained-Release 12 Hr 150 mg PO Q12H RF: 0 Discharge Orders: Discharge Order (Routine); Ordered 11/07/20 Ordered By: Casandra Malhotra Admission Data Admit Date/Time: 11/04/20 13:41 Attending Provider: Casandra Malhotra Admit Provider: Perry Salguero Primary Care Provider: Luis Fernando Rojas Other Providers: Perry Salguero ; Bret España Other Interventions: Discharge Summary Assessment (RN) Last Done: 11/07/20 09:52
[2020-11-08 02:29] LABS: Anti Nuclear Antibody Screen NEGATIVE (NEGATIVE); Anti-Histone Ab <1.0 U (<1.0); Anti-dsDNA Recombinant 2 IU/mL
== END 2020-11-07 10:25 | disposition home or self-care (01) | DRG 206 ==
LOC: ED 12:08 → 2N 12:08 → SUATTDRO 14:17 → 2N 16:58

== ENCOUNTER 2021-01-18 09:00 | Inpatient (IN) ==
--- NOTE | 2021-01-18 09:50 | Emergency Department Note ---
Impression & Plan Acute renal failure, Hypoglycemia ED Provider Note NAME: TAMARA EAGLE AGE: 60 SEX: F : 1960 ARRIVES VIA: Walk-In INFORMANT: Patient, ED PROVIDER(S): Frank Burnette DO CHIEF COMPLAINT: Shaking HPI: The patient is a 60-year-old female who presented to the emergency department with whole body shaking. She states that she noticed the symptoms approximately a year ago. She has been seen by her primary care physician for the symptoms in the past. She initially had tingling and shaking of her upper extremities but is recently started to notice it over her lower extremities as well. She states that the symptoms are worsened when she tries to ambulate. She notices a headache as well but this is intermittent. The patient has been compliant with all of her other outpatient medications. She notices no fevers. She notices no dysuria or frequency. She does not drink alcohol. She has been taking all of her other outpatient medications for quite some time and has not had changes to them or stop taking them. The patient had an appointment with her family doctor today but while she was leaving for the appointment she fell and twisted her left ankle and landed on her buttocks. She came to emergency department because of the ankle pain. ROS: See above HPI for pertinent positives & negatives. A total of 10 systems reviewed and were otherwise negative. PAST MEDICAL HISTORY: See Below PAST SURGICAL HISTORY: See Below FAMILY HISTORY: See Below SOCIAL HISTORY: See Below HOME MEDICATIONS: See Below ALLERGIES: See Below VITALS: See Below PHYSICAL EXAMINATION: GENERAL: Patient is awake alert in no acute distress patient is resting comfortably and showing no signs of anxiety EYES: The conjunctivae are clear. The pupils are round and reactive. EARS, NOSE, MOUTH AND THROAT: The nose is without any evidence of any deformity. Mucous membranes are moist. Tongue is midline. NECK: The neck is nontender and supple. RESPIRATORY: Normal respiratory effort is noted there is no evidence of wheezing rhonchi or rales CARDIOVASCULAR: Regular rate and rhythm noted there no murmurs rubs or gallops normal S1 normal S2. GASTROINTESTINAL: The abdomen is soft. Abdomen is nontender. MUSCULOSKELETAL/EXTREMITIES: There is no evidence of gross deformity full range of motion is noted in the hips and shoulders. There is tenderness over the lateral aspect of the left ankle. Swelling was noted. There was an abrasion over the anterior ankle as well. SKIN: There is no obvious evidence of any rash. There are no petechiae, pallor or cyanosis noted. NEUROLOGIC: Patient is awake alert and oriented x3 strength is symmetric patellar reflexes are 2+ bilaterally MEDICAL DECISION MAKING: The patient is a 60-year-old female who presented to the emergency department for an evaluation of weakness and shaking. The patient has been fatigued late ly. She called her primary care physician and was referred to the emergency department. The patient was treated with IV fluids in the emergency department. Ultimately she was found to have signs of acute renal failure. She does have a history of chronic renal insufficiency at this time her creatinine is significantly elevated. I discussed the patient's laboratory and radiographic studies with her. I also discussed her [facility] They have agreed to evaluate the patient in the emergency department for further management and disposition. Triage Nursing notes reviewed. Prior medical records reviewed Vital Signs: reviewed and remarkable for elevated blood pressure. Differential diagnosis: Infection, dehydration, metabolic abnormality, hypo/hyperglycemia, electrolyte disturbance, anemia, hypoxia, cardiac sources, intracerebral event, toxicologic, neurologic, as well as other pathologies. ER treatment provided: See below Diagnostics interpreted by me: ECG: EKG was obtained in the emergency department. My interpretation is atrial paced rhythm with ventricular sensing. There was prolonged AV conduction. There were no PVCs. This was compared to a tracing from November 032020. No significant changes were noted. Cardiac Monitoring: An order was placed for continuous cardiac monitoring. The monitor shows a rate of 76 bpm with sinus rhythm. Laboratory studies: As stated above and show below. Imaging studies: See below Consultation(s): 1115: I discussed this case with Joanne zurita who is [facility]. Past Med/Surg History Medical History (Updated 01/18/21 @ 16:11 by Frank Burnette DO) Chronic diastolic CHF (congestive heart failure) CKD (chronic kidney disease), stage III Depression Diabetes mellitus, type II Difficult airway for intubation Endometrial carcinoma (02/23/13) "S/P hysterectomy " GERD (gastroesophageal reflux disease) History of melanoma HLD (hyperlipidemia) HTN (hypertension) Hypothyroidism MDD (major depressive disorder) MINISTERIO on CPAP Pacemaker SSS (sick sinus syndrome) Pt admitted for elective pacemaker due to SSS. She underwent procedure without any complications. Monitored over night and discharged home. 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 Beliefs That Will Affect Care: None Current Living Situation: Spouse Current Living Situation Comment: LIVES WITH Other Information That Helps Us Care for You: No Feels Safe at Home: Yes Safety Concerns: Feels Safe At This Time Assistive Devices: CPAP and Glasses Assistive Devices Comment: READERS Allergies Allergies Allergy/AdvReac Type Severity Reaction Status Date / Time CHIDI Inhibitors AdvReac Mild COUGH Verified 01/18/21 11:20 Home Meds Home Medications Medication Instructions Recorded Confirmed Humalog U-100 Insulin 1 sliding scale dose SUBCUT 07/05/18 01/18/21 Lantus U-100 Insulin 23 unit SUBCUT QA 07/05/18 01/18/21 atorvastatin 40 mg PO PM 07/05/18 01/18/21 citalopram 40 mg PO QAM 07/05/18 01/18/21 gabapentin 600 mg PO TID 07/05/18 01/18/21 hydralazine 50 mg PO TID 07/05/18 01/18/21 levothyroxine [Synthroid] 100 mcg PO QAM 07/05/18 01/18/21 multivitamin 1 tab PO QAM 07/05/18 01/18/21 pantoprazole 40 mg PO QAM 07/05/18 01/18/21 doxycycline hyclate 20 mg PO BID 08/11/19 01/18/21 carvedilol 6.25 mg PO BID 08/21/19 01/18/21 furosemide 40 mg PO DAILY 08/21/19 01/18/21 Ozempic 1 mg SUBCUT WK 11/02/20 01/18/21 bupropion HCl [Wellbutrin SR] 150 mg PO Q12H 11/02/20 01/18/21 calcium carb-vit D2-minerals 1 tab PO DAILY 01/18/21 01/18/21 [Calcium Citrate +] melatonin 10 mg PO HS PRN 01/18/21 01/18/21 Results & Data (ED) Vital Signs Vital Signs - 24 hr 01/18/21 09:04 01/18/21 10:41 01/18/21 11:01 Temperature 36.9 C Temperature Source Temporal Artery Scan Pulse Rate 73 Pulse Rate [Apical] 72 Pulse Rhythm [Apical] Regular Respiratory Rate 20 18 Respiratory Effort / Characteristics Non-Labored Spontaneous Non-Labored Spontaneous Respiratory Depth Normal Normal Respiratory Pattern Regular Regular Blood Pressure 134/67 Blood Pressure [Left Arm] 126/50 L Blood Pressure Mean 89 Blood Pressure Mean [Left Arm] 75 Pulse Oximetry 98 98 98 Oxygen Delivery Method Room Air Room Air Room Air Sepsis Recent Fever Within 48 Hours No Sepsis New/Unexplained Change in Mental Status No Sepsis Action Taken by Nursing No Action Required Home Medications Current Medication List: was personally reviewed by me Laboratory Data Attestation: I reviewed the patient's lab results. Result diagrams: 01/18/21 10:10 01/18/21 10:10 Lab Results 01/18/21 01/18/21 01/18/21 Range/Units 10:10 10:10 10:10 WBC 10.35 (4.8-10.8) K/uL RBC 3.22 L (4.2-5.4) M/uL Hgb 9.9 L (12.0-16.0) g/dL Hct 30.0 L (37-47) % MCV 93.2 (80-100) fL MCH 30.7 (25-34) pg MCHC 33.0 (32-36) g/dL RDW Std Deviation 44.2 (36.4-46.3) fL RDW Coeff of Leatha 12.8 (11.5-14.5) % Plt Count 232 (130-400) K/uL MPV 10.1 (7.4-10.4) fL Immature Gran % (Auto) 0.3 % Neut % (Auto) 70.2 % Lymph % (Auto) 19.2 % Lander % (Auto) 8.6 % Eos % (Auto) 1.4 % Baso % (Auto) 0.3 % Neut # (Auto) 7.27 H (1.4-6.5) K/uL Lymph # (Auto) 1.99 (1.2-3.4) K/uL Lander # (Auto) 0.89 H (0.11-0.59) K/uL Eos # (Auto) 0.14 (0-0.5) K/uL Baso # (Auto) 0.03 (0-0.2) K/uL Immature Gran # (Auto) 0.03 H (0.00-0.02) K/uL Sodium 127 L (136-145) mmol/L Potassium 4.5 (3.5-5.1) mmol/L Chloride 97 L (98-107) mmol/L Carbon Dioxide 18 L (21-32) mmol/L Anion Gap 12.0 H (3-11) BUN 81 H (7-18) mg/dl Creatinine 7.11 H* (0.6-1.2) mg/dl Est Cr Clr Drug Dosing Not Reportable Est GFR ( Amer) 6.5 ml/min Est GFR (Non-Af Amer) 5.6 ml/min BUN/Creatinine Ratio 11.4 (10-20) Glucose 65 L (70-99) mg/dl POC Glucose (70-99) mg/dl Osmolality 306 H (280-300) mOsm/kg Calcium 7.5 L (8.5-10.1) mg/dl Phosphorus (2.5-4.9) mg/dl Magnesium 2.6 H (1.8-2.4) mg/dl Total Bilirubin 0.3 (0.2-1) mg/dl AST 18 (15-37) U/L ALT 26 (12-78) U/L Alkaline Phosphatase 113 (45-117) U/L Total Creatine Kinase 117 (26-192) U/L Troponin I < 0.015 (0-0.045) ng/ml Total Protein 6.9 (6.4-8.2) gm/dl Albumin 3.0 L (3.4-5.0) gm/dl Globulin 3.9 (2.5-4.0) gm/dl Albumin/Globulin Ratio 0.8 L (0.9-2) TSH 2.300 (0.300-4.500) uIu/ml 01/18/21 01/18/21 Range/Units 10:10 10:55 WBC (4.8-10.8) K/uL RBC (4.2-5.4) M/uL Hgb (12.0-16.0) g/dL Hct (37-47) % MCV (80-100) fL MCH (25-34) pg MCHC (32-36) g/dL RDW Std Deviation (36.4-46.3) fL RDW Coeff of Leatha (11.5-14.5) % Plt Count (130-400) K/uL MPV (7.4-10.4) fL Immature Gran % (Auto) % Neut % (Auto) % Lymph % (Auto) % Lander % (Auto) % Eos % (Auto) % Baso % (Auto) % Neut # (Auto) (1.4-6.5) K/uL Lymph # (Auto) (1.2-3.4) K/uL Lander # (Auto) (0.11-0.59) K/uL Eos # (Auto) (0-0.5) K/uL Baso # (Auto) (0-0.2) K/uL Immature Gran # (Auto) (0.00-0.02) K/uL Sodium (136-145) mmol/L Potassium (3.5-5.1) mmol/L Chloride (98-107) mmol/L Carbon Dioxide (21-32) mmol/L Anion Gap (3-11) BUN (7-18) mg/dl Creatinine (0.6-1.2) mg/dl Est Cr Clr Drug Dosing Est GFR ( Amer) ml/min Est GFR (Non-Af Amer) ml/min BUN/Creatinine Ratio (10-20) Glucose (70-99) mg/dl POC Glucose 51 L* (70-99) mg/dl Osmolality (280-300) mOsm/kg Calcium (8.5-10.1) mg/dl Phosphorus 8.8 H (2.5-4.9) mg/dl Magnesium (1.8-2.4) mg/dl Total Bilirubin (0.2-1) mg/dl AST (15-37) U/L ALT (12-78) U/L Alkaline Phosphatase (45-117) U/L Total Creatine Kinase (26-192) U/L Troponin I (0-0.045) ng/ml Total Protein (6.4-8.2) gm/dl Albumin (3.4-5.0) gm/dl Globulin (2.5-4.0) gm/dl Albumin/Globulin Ratio (0.9-2) TSH (0.300-4.500) uIu/ml Administered Medications Discontinued Medications Sodium Chloride (Nss 1000ml) 1,000 mls @ 999 mls/hr IV .Q1H1M ONE Stop: 01/18/21 11:57 Last Infusion: 01/18/21 14:15 Dose: 0 mls/hr Documented by: [id number] Infusion: 01/18/21 13:15 Dose: 0 mls/hr Documented by: [id number] Admin: 01/18/21 12:15 Dose: 999 mls/hr Documented by: [id number] Imaging Data Radiologist's Impression: Ankle X-Ray 01/18/21 09:38 LEFT ANKLE 3 VIEWS HISTORY: Left ankle pain. fall COMPARISON: None. FINDINGS: There is no fracture or dislocation. Mild soft tissue swelling. Pl aristides and posterior calcaneal spurs are noted. Mild vascular calcifications. No radiopaque foreign bodies. IMPRESSION: No fractures. ACT 112: Negative or not required by law. Electronically signed by: eKndell Toth M.D. 01/18/2021 10:34 AM Chest X-Ray 01/18/21 09:38 SINGLE VIEW CHEST CLINICAL HISTORY: Generalized weakness. FINDINGS: An AP, portable, upright chest radiograph is compared to study dated 11/02/2020. A 2-lead cardiac pacemaker is unchanged in position. The heart is mildly enlarged noting atherosclerotic calcification of the thoracic aorta. The pulmonary vasculature is noncongested. The lungs and pleural spaces are clear. No pneumothorax is seen. The skeletal structures are osteopenic. The bony thorax is grossly intact. IMPRESSION: 1. Cardiomegaly and cardiac pacemaker with no radiographic evidence of congestive failure. 2. No airspace consolidation or large pleural effusion is identified. ACT 112: Negative or not required by law. Electronically signed by: Marco Antonio Martins M.D. 01/18/2021 10:[address] 01/18/21 09:38 CT head/brain wo con CLINICAL HISTORY: Progressive twitching and shaking. Muscle weakness. COMPARISON STUDY: 11/02/2020 TECHNIQUE: Axial CT of the brain is performed from the vertex to the skull base. IV contrast was not administered for this examination. A dose lowering technique was utilized adhering to the principles of ALARA. CT DOSE: 729.78 mGycm FINDINGS: No intra or extra-axial mass lesions are visualized. There is no CT evidence of acute cortical infarction. There is no evidence of midline shift. There is no acute hemorrhage. No calvarial fractures are visualized. There is no evidence of pathologic ventricular dilatation. There is a persistent polyp/retention cyst within the left sphenoid sinus. IMPRESSION: No acute intracranial findings ACT 112: Negative or not required by law. Electronically signed by: Maximiliano Seaman M.D. 01/18/2021 12:01 PM Discharge Plan Visit Data Chief Complaint: Illness Stated Complaint: TWITCHING AND CONFUSION X2 DAYS,WEAKNESS,FELL ED Provider: Frank Burnette Discharge Problem: Acute renal failure, Hypoglycemia Patient Disposition: Admitted As Inpatient Condition: Good Discharge Instructions Interventions: ED Discharge Assessment Last Done: 01/18/21 15:10 Discharge Problem: Acute renal failure Qualifiers: Acute renal failure type: unspecified Qualified Code(s): N17.9 - Acute kidney failure, unspecified
[2021-01-18 10:20] LABS: Basophils # (auto) 0.03 K/uL (0-0.2); Basophils % (auto) 0.3 %; Eosinophils # (auto) 0.14 K/uL (0-0.5); Eosinophils % (auto) 1.4 %; Hemoglobin 9.9 g/dL (12.0-16.0); Immature Granulocytes # (auto) 0.03 K/uL (0.00-0.02); Immature Granulocytes % (auto) 0.3 %; Lymphocytes # (auto) 1.99 K/uL (1.2-3.4); Lymphocytes % (auto) 19.2 %; Mean Corpuscular Hemoglobin 30.7 pg (25-34); Mean Corpuscular Volume 93.2 fL (80-100); Mean Platelet Volume 10.1 fL (7.4-10.4); Monocytes # (auto) 0.89 K/uL (0.11-0.59); Monocytes % (auto) 8.6 %; Neutrophils # (auto) 7.27 K/uL (1.4-6.5); Neutrophils % (auto) 70.2 %; Platelet Count 232 K/uL (130-400); RDW Coefficient of Variation 12.8 % (11.5-14.5); RDW Standard Deviation 44.2 fL (36.4-46.3); Red Blood Count 3.22 M/uL (4.2-5.4); White Blood Count 10.35 K/uL (4.8-10.8)
--- NOTE | 2021-01-18 10:35 | XRay Report ---
LEFT ANKLE 3 VIEWS HISTORY: Left ankle pain. fall COMPARISON: None. FINDINGS: There is no fracture or dislocation. Mild soft tissue swelling. Plantar and posterior calca darío spurs are noted. Mild vascular calcifications. No radiopaque foreign bodies. IMPRESSION: No fractures. ACT 112: Negative or not required by law. Electronically signed by: Kendell Toth M.D. 01/18/2021 10:34 AM
--- NOTE | 2021-01-18 10:41 | XRay Report ---
SINGLE VIEW CHEST CLINICAL HISTORY: Generalized weakness. FINDINGS: An AP, portable, upright chest radiograph is compared to study dated 11/02/2020. A 2-lead ca rdiac pacemaker is unchanged in position. The heart is mildly enlarged noting atherosclerotic calcifi cation of the thoracic aorta. The pulmonary vasculature is noncongested. The lungs and pleural spaces are clear. No pneumothorax is seen. The skeletal structures are osteopenic. The bony thorax is gross ly intact. IMPRESSION: 1. Cardiomegaly and cardiac pacemaker with no radiographic evidence of congestive failure. 2. No airspace consolidation or large pleural effusion is identified. ACT 112: Negative or not required by law. Electronically signed by: Marco Antonio Martins M.D. 01/18/2021 10:40 AM
[2021-01-18 10:54] LABS: Alanine Aminotransferase 26 U/L (12-78); Albumin Globulin Ratio 0.8 (0.9-2); Alkaline Phosphatase 113 U/L (45-117); Aspartate Aminotransferase 18 U/L (15-37); BUN Creatinine Ratio 11.4 (10-20); Bilirubin,Total 0.3 mg/dl (0.2-1); Blood Urea Nitrogen 81 mg/dl (7-18); Calcium 7.5 mg/dl (8.5-10.1); Carbon Dioxide 18 mmol/L (21-32); Chloride 97 mmol/L (98-107); Creatine Kinase 117 U/L (26-192); Est GFR (African American) 6.5 ml/min; Est GFR (Non-African American) 5.6 ml/min; Globulin 3.9 gm/dl (2.5-4.0); Glucose 65 mg/dl (70-99); Magnesium 2.6 mg/dl (1.8-2.4); Potassium 4.5 mmol/L (3.5-5.1); Sodium 127 mmol/L (136-145); Total Protein 6.9 gm/dl (6.4-8.2); Troponin I < 0.015 ng/ml (0-0.045)
[2021-01-18] MEDS ORDERED: SODIUM CHLORIDE 0.9% 1000ML 1,000 ML IV ONE (10:57)
--- NOTE | 2021-01-18 12:03 | CT Scan Report ---
CT head/brain wo con CLINICAL HISTORY: Progressive twitching and shaking. Muscle weakness. COMPARISON STUDY: 11/02/2020 TECHNIQUE: Axial CT of the brain is performed from the vertex to the skull base. IV contrast was not administered for this examination. A dose lowering technique was utilized adhering to the principles of ALARA. CT DOSE: 729.78 mGycm FINDINGS: No intra or extra-axial mass lesions are visualized. There is no CT evidence of acute cortical infarc tion. There is no evidence of midline shift. There is no acute hemorrhage. No calvarial fractures ar e visualized. There is no evidence of pathologic ventricular dilatation. There is a persistent polyp/retention cyst within the left sphenoid sinus. IMPRESSION: No acute intracranial findings ACT 112: Negative or not required by law. Electronically signed by: Maximiliano Seaman M.D. 01/18/2021 12:01 PM
[2021-01-18 12:08] LABS: Appearance Urine Turbid (Clear); Bacteria Urine Automated 1+ (Negative); Bilirubin Urine Negative (Negative); Blood Urine Negative (Negative); Cast Urine Automated 0 /lpf (0-5); Color Urine Yellow; Glucose Urine UA Negative (Negative); Ketones Urine Negative (Negative); Leukocyte Esterase Urine 3+ (Negative); Nitrite Urine Negative (Negative); Protein Urine Trace (Negative); RBC Urine Automated 0-4 /hpf (0-4); Specific Gravity Urine 1.008 (1.000-1.030); Urobilinogen Urine Negative (Negative); WBC Urine Automated >30 /hpf (0-5)
--- NOTE | 2021-01-18 12:48 | History & Physical Report ---
Date of Service January 18, 2021 Assessment & Plan (1) Acute kidney injury superimposed on CKD: (2) CKD (chronic kidney disease), stage III: -Admit to telemetry -Patient presenting from home with reports of generalized weakness and bilateral arm and leg jerking -History of CKD III with baseline creatinine ~ 1.8 -In the ED, creatinine found to be 7.1, BUN 81 -K+ 4.5, HCO3 18 -Nonoliguric -Etiology not clear at this point -Check UA w/ micro -renal ultrasound -Stan[place] placed for strict I's and O's -Nephrology consult, case discussed with Dr. Donaldson -Hold gabapentin, bupropion, citalopram until renal functions improve (3) Hyponatremia: -Na+ 127 -Check urine and serum osmolality -NSS at 100 cc an hour, recheck sodium at 1600 (4) Diabetes mellitus, type II: (5) Hypoglycemia: -Likely due to poor p.o. intake in combination with continued insulin use -Hold all insulin for now, BSG every 2 hours -Hgb A1c 7.4 10/2020 (6) HTN (hypertension): -BP controlled, continue carvedilol, hydralazine (7) Chronic diastolic CHF (congestive heart failure): -Hold Lasix due to LAMAR (8) Pacemaker: (9) SSS (sick sinus syndrome): -No acute issues (10) MINISTERIO on CPAP: -CPAP as per home settings (11) Hypothyroidism: -Continue levothyroxine -TSH 2.3 (12) DVT prophylaxis: -SQ heparin History of Present Illness Chief Complaint: Generalized weakness, jerking Primary Care Provider: Luis Fernando Rojas MD 60-year-old female with PMH DM type II, CKD stage III, hypothyroidism, MINISTERIO on CPAP, chronic diastolic CHF, SSS s/p pacemaker, HTN, history of endometrial cancer s/p hysterectomy, and other problems to below who presents the ED for evaluation of generalized weakness and extremity jerking. Patient reports that over the past few days, she has had increasing generalized weakness. She was unable to dress herself this morning. She also reports bilateral arm and leg jerking at times. She reports she was camping over the weekend however reports that she stayed inside the camper in the air conditioning due to the heat. She reports that she was able to stay hydrated. She had a UTI in November and was treated with Bactrim. She reports ongoing dysuria and very cloudy urine. Repeat urine culture was negative. Patient is scheduled to see urology. She reports a poor appetite and has continued to take her normal amounts of insulin. Reports having low blood sugars in the 60s over the past couple of weeks. She denies abdominal pain, vomiting, diarrhea. No fevers or chills. Has had slightly worsening exertional shortness of breath, no chest pain. Denies lightheadedness, dizziness, diaphoresis, syncopal events. In the ED, patient is on be hypoglycemic at 51. This improved after orange juice. Labs also show sodium 127, BUN 81, creatinine 7.1. Patient is hemodynamically stable. She was given 1 L NSS. Allergies Allergy/AdvReac Type Severity Reaction Status Date / Time CHIDI Inhibitors AdvReac Mild COUGH Verified 01/18/21 11:20 Home Medications Medication Instructions Recorded Confirmed Type Humalog U-100 Insulin 1 sliding scale dose SUBCUT UD 07/05/18 01/18/21 History Lantus U-100 Insulin 23 unit SUBCUT QAM 07/05/18 01/18/21 History atorvastatin 40 mg PO PM 07/05/18 01/18/21 History citalopram 40 mg PO QAM 07/05/18 01/18/21 History gabapentin 600 mg PO TID 07/05/18 01/18/21 History hydralazine 50 mg PO TID 07/05/18 01/18/21 History levothyroxine [Synthroid] 100 mcg PO QAM 07/05/18 01/18/21 History multivitamin 1 tab PO QAM 07/05/18 01/18/21 History pantoprazole 40 mg PO QAM 07/05/18 01/18/21 History doxycycline hyclate 20 mg PO BID 08/11/19 01/18/21 History carvedilol 6.25 mg PO BID 08/21/19 01/18/21 History furosemide 40 mg PO DAILY 08/21/19 01/18/21 History Ozempic 1 mg SUBCUT WK 11/02/20 01/18/21 History bupropion HCl [Wellbutrin SR] 150 mg PO Q12H 11/02/20 01/18/21 History calcium carb-vit D2-minerals 1 tab PO DAILY 01/18/21 01/18/21 History [Calcium Citrate +] melatonin 10 mg PO HS PRN 01/18/21 01/18/21 History Past Med/Surg History Medical History Chronic diastolic CHF (congestive heart failure) CKD (chronic kidney disease), stage III Depression Diabetes mellitus, type II Difficult airway for intubation Endometrial carcinoma (02/23/13) "S/P hysterectomy " GERD (gastroesophageal reflux disease) History of melanoma HLD (hyperlipidemia) HTN (hypertension) Hypothyroidism MDD (major depressive disorder) MINISTERIO on CPAP Pacemaker SSS (sick sinus syndrome) Pt admitted for elective pacemaker due to SSS. She underwent procedure without any complications. Monitored over night and discharged home. Surgical History H/O esophagogastroduodenoscopy H/O hernia repair History of cholecystectomy Hx of cardiac cath "2012, negative for CAD " Hx of gastric bypass S/P knee surgery S/P JERSEY-BSO Family History Other Colonic polyp GERD (gastroesophageal reflux disease) Social History Smoking Status: Never smoker Second Hand Exposure: No; Do You Dip or Chew Tobacco: No; Tobacco Cessation Education Requested by Patient: No Hx Alcohol Use: No Hx Substance Use: No Preferred Language: Zimbabwean Communication Ability: Effective Hotel Director Required: No Beliefs That Will Affect Care: None Current Living Situation: Spouse Current Living Situation Comment: LIVES WITH Other Information That Helps Us Care for You: No Feels Safe at Home: Yes Safety Concerns: Feels Safe At This Time Assistive Devices: CPAP and Glasses Assistive Devices Comment: READERS Review of Systems Review of Systems: ROS per HPI, all other systems reviewed and negative Physical Exam Constitutional: WD/WN, vitals as above + obese Eyes: PERRL, conjunctivae normal, anicteric sclerae ENMT: external ear and nose normal, oropharynx normal Respiratory: normal respiratory effort, lungs clear to auscultation Cardiovascular: Rate/Rhythm: regular rate and regular rhythm Vessels: normal peripheral pulses Extremities: no edema Gastrointestinal (Abdomen): normal bowel sounds, soft, nontender, no hepatosplenomegaly Musculoskeletal: no cyanosis or clubbing, extremities motor strength 5/5 Skin: no rashes, warm and dry Chronic venous changes BLE Neurologic: PERRL, EOMI, accommodation nl, no face palsy, no dysarthria Psychiatric: A+Ox3, euthymic affect Results & Data Results & Data ([facility]) Vital Signs (Past 12 Hours) Vital Signs Temp Pulse Pulse Resp BP BP Pulse Ox 01/18/21 11:01 72 18 126/50 L 98 01/18/21 10:41 98 01/18/21 09:04 36.9 C 73 20 134/67 98 Laboratory Results Short CBC 01/18/21 01/18/21 01/18/21 Range/Units 10:10 10:10 10:55 WBC 10.35 (4.8-10.8) K/uL Hgb 9.9 L (12.0-16.0) g/dL Hct 30.0 L (37-47) % Plt Count 232 (130-400) K/uL Sodium 127 L (136-145) mmol/L Creatinine 7.11 H* (0.6-1.2) mg/dl Glucose 65 L (70-99) mg/dl POC Glucose 51 L* (70-99) mg/dl 01/18/21 01/18/21 01/18/21 Range/Units 11:39 12:14 12:28 WBC (4.8-10.8) K/uL Hgb (12.0-16.0) g/dL Hct (37-47) % Plt Count (130-400) K/uL Sodium (136-145) mmol/L Creatinine (0.6-1.2) mg/dl Glucose (70-99) mg/dl POC Glucose 88 61 L* 122 H (70-99) mg/dl BMP 01/18/21 10:10 Sodium 127 L Potassium 4.5 Chloride 97 L Carbon Dioxide 18 L BUN 81 H Creatinine 7.11 H* Glucose 65 L Calcium 7.5 L Cardiac Enzymes 01/18/21 Range/Units 10:10 Total Creatine Kinase 117 (26-192) U/L Troponin I < 0.015 (0-0.045) ng/ml Liver Function 01/18/21 Range/Units 10:10 Total Bilirubin 0.3 (0.2-1) mg/dl AST 18 (15-37) U/L ALT 26 (12-78) U/L Alkaline Phosphatase 113 (45-117) U/L Albumin 3.0 L (3.4-5.0) gm/dl Urine 01/18/21 Range/Units 11:40 Urine Color Yellow Urine Appearance Turbid A (Clear) Urine pH 5.0 (4.5-7.5) Ur Specific [place] 1.008 (1.000-1.030) Urine Protein Trace H (Negative) Urine Glucose (UA) Negative (Negative) Diagnostic Findings Ankle X-Ray 01/18/21 09:38 LEFT ANKLE 3 VIEWS HISTORY: Left ankle pain. fall COMPARISON: None. FINDINGS: There is no fracture or dislocation. Mild soft tissue swelling. Plantar and posterior calcaneal spurs are noted. Mild vascular calcifications. No radiopaque foreign bodies. IMPRESSION: No fractures. ACT 112: Negative or not required by law. Electronically signed by: Kendell Toth M.D. 01/18/2021 10:34 AM Chest X-Ray 01/18/21 09:38 SINGLE VIEW CHEST CLINICAL HISTORY: Generalized weakness. FINDINGS: An AP, portable, upright chest radiograph is compared to study dated 11/02/2020. A 2-lead cardiac pacemaker is unchanged in position. The heart is mildly enlarged noting atherosclerotic calcification of the thoracic aorta. The pulmonary vasculature is noncongested. The lungs and pleural spaces are clear. No pneumothorax is seen. The skeletal structures are osteopenic. The bony thorax is grossly intact. IMPRESSION: 1. Cardiomegaly and cardiac pacemaker with no radiographic evidence of congestive failure. 2. No airspace consolidation or large pleural effusion is identified. ACT 112: Negative or not required by law. Electronically signed by: Marco Antonio Martins M.D. 01/18/2021 10:[address] 01/18/21 09:38 CT head/brain wo con CLINICAL HISTORY: Progressive twitching and shaking. Muscle weakness. COMPARISON STUDY: 11/02/2020 TECHNIQUE: Axial CT of the brain is performed from the vertex to the skull base. IV contrast was not administered for this examination. A dose lowering technique was utilized adhering to the principles of ALARA. CT DOSE: 729.78 mGycm FINDINGS: No intra or extra-axial mass lesions are visualized. There is no CT evidence of acute cortical infarction. There is no evidence of midline shift. There is no acute hemorrhage. No calvarial fractures are visualized. There is no evidence of pathologic ventricular dilatation. There is a persistent polyp/retention cyst within the left sphenoid sinus. IMPRESSION: No acute intracranial findings ACT 112: Negative or not required by law. Electronically signed by: Maximiliano Seaman M.D. 01/18/2021 12:01 PM Code Status & VTE Plan Code Status Patient is a full code as per my discussion with her. VTE Prophylaxis Plan VTE Prophylaxis will be ordered: Yes Supervising Physician Co-Signing Physician Notes I have seen and examined the patient and have discussed the case with the provider above. I agree with the assessment and plan as stated. 60 yo diabetic female on multi-daily dose insulin. Uncertain need for Ozempic which was recently added to regimen. A1C reflects fair control. Patient reporting at least 5 "lows" in the 50-60s at home in last two weeks. Recent camping activity this weekend where it was very hot and humid outside; may have contributed to dehydration and current clinical picture. Patient doing well other than weaknes s. Physical exam as above. No pericardial friction rub heard. No edema. NAD. Vitals are WNL. at bedside and verbalized understanding of the plan. Agree with plan above and per nephro guidance. Follow frequent BMP overnight. Renal diet. DO Oli (1) HTN (hypertension) Hypertension type: unspecified Qualified Code(s): I10 - Essential (primary) hypertension
--- NOTE | 2021-01-18 14:18 | Ultrasound Report ---
RENAL ULTRASOUND HISTORY: Acute kidney injury. COMPARISON: Abdomen and pelvis CT 10/31/2017. FINDINGS: Right kidney: 12.3 cm. No hydronephrosis. Normal cortical thickness. Mild increased cortical echogeni city. Left kidney: 12.3 cm. No hydronephrosis. Normal cortical thickness. Mild increased cortical echogenic ity. Bladder: No bladder wall thickening. The bilateral ureteral jets were identified. IMPRESSION: 1. Mild bilateral increased cortical echogenicity suggestive of medical renal disease. 2. No hydronephrosis. ACT 112: Negative or not required by law. Electronically signed by: Kendell Toth M.D. 01/18/2021 2:17 PM
--- NOTE | 2021-01-18 15:26 | Electrocardiogram Report ---
Test Reason : Blood Pressure : / mmHG Vent. Rate : 072 BPM Atrial Rate : 072 BPM P-R Int : 416 ms QRS Dur : 098 ms QT Int : 442 ms P-R-T Axes : 000 011 033 degrees QTc Int : 483 ms Atrial-paced rhythm with prolonged AV conduction Abnormal ECG When compared with ECG of 03-NOV-2020 11:11, Criteria for Inferior infarct are no longer Present Confirmed by Tl Sotelo ([id number]) on 01/18/2021 3:26:30 PM Referred By: REFERRED SELF Confirmed By:Tl Sotelo
[2021-01-18] MEDS ORDERED: SODIUM CHLORIDE 0.9% 1000ML 1,000 ML IV SCH (15:49)
[2021-01-18] MEDS ORDERED: GLUCOSE 10 TABS/TUBE PO PRN (15:49)
[2021-01-18] MEDS ORDERED: GLUCAGON FOR INJ 1 MG VIAL SQ PRN (15:49)
[2021-01-18] MEDS ORDERED: GLUCOSE 40% GEL 15 GM TUBE PO PRN (15:49)
[2021-01-18] MEDS ORDERED: CARBOHYDRATES FOR HYPOGLYCEMIA PO PRN (15:49)
[2021-01-18] MEDS ORDERED: DEXTROSE 50% 50 ML SYRINGE IV PRN (15:49)
[2021-01-18] MEDS: hydrALAZINE TAB 50 MG TAB PO SCH ×2 (16:43→20:10)
[2021-01-18] MEDS ORDERED: NYSTATIN POWDER 15GM BTL EXT PRN (16:46)
[2021-01-18 16:48] LABS: Appearance Urine Turbid (Clear); Bacteria Urine Automated 2+ (Negative); Bilirubin Urine Negative (Negative); Blood Urine Trace (Negative); Color Urine Yellow; Glucose Urine UA Negative (Negative); Ketones Urine Negative (Negative); Leukocyte Esterase Urine 3+ (Negative); Nitrite Urine Negative (Negative); Protein Urine Trace (Negative); RBC Urine Automated 0-4 /hpf (0-4); Specific Gravity Urine 1.008 (1.000-1.030); Urobilinogen Urine Negative (Negative); WBC Urine Automated >30 /hpf (0-5)
--- NOTE | 2021-01-18 17:12 | Nephrology Consultation ---
Date of Consultation January 18, 2021 Assessment & Plan (1) Acute kidney injury superimposed on CKD: nonoliguric LAMAR on CKD 3. intake UA suspicious for UTI > no abtx currently though. no obstruction on imaging. prerenal versus ATN. ozempic has been a/w worsening renal function in pts w/ volume depletion > may be at work here. CK wnl. -agree w/ NS -f/u repeat labs -daily bmp -cont to hold lasix, ozempic; would markedly reduce dosing of gabapentin -no indication for discussion of HD at this point >> not oliguric; on RA; mild but not uncontrolled vol OL and apart from hyperphosphatemia, hyponatremia, chemistries ok Present on Admission?: Yes (2) Hyponatremia: 127 on presentation. suspect hypovolemic hyponatremia but more data needed. for now hydrating w/ NS and will f/u repeat labs Present on Admission?: Yes (3) HTN (hypertension): some elevation and would expect this w/ NS running, anxiety. sbp 120-160s w/o sx > observe -cont coreg, hydralazine -cont NS for now Present on Admission?: Yes (4) Myoclonic jerking: ?relation to accumuulation of gabapentin w/ renal failure on her customary high OP doses; could also in theory relate to nutritional deficiency from gastric bypass> defer to primary to eval this Present on Admission?: Yes History of Present Illness Reason for Consultation: LAMAR on CKD, hyponatremia Requesting Physician: Dr Baird Attending Physician: Maria D Baird, DO History of Present Illness 50 y/o F whom I'm asked to see for LAMAR and hyponatremia was admitted today after she presented for evaluation of generalized weakness and myoclonic limb jerks emerged a few days back adn progressive. Her presenting creatinine was 7.1 (baseline 1.6-1.8), presenting serum sodium 127. 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 Also w/ remote hx of melanoma L calf 2009 and endometrial CA early . She follows in CKD clinic w/ Dr Hassan. Creatinine 1.9 as OP in October. Has been on stable doses of ozempic > 1 year. She went camping this weekend w/ family and twoard end of weekend noted jerks and weakness. Denies having been out in the extremely hot weather. Was unable to dress herself this am; also "fell out the door" this am as she was leaving house. Has had cramps/jerks for at least a year but marked worsening in past 48 hrs. no nsaids; no tylenol; has had mild FLORES past few days. She was treated for UTI w/ bactrim in November; ongoing dysuria however and urine noted to be milky/cloudy. mild exertional dyspnea. no v/d/abd pain, no chest pain. +poor po intake/appetite and lower bg over past several days; also w/ N. In the ER she received 1L NS and after d/w admitting team and me she was started on NS at 100 mL /hr. BG 51 in ER > improved w/ OJ. Allergies Allergy/AdvReac Type Severity Reaction Status Date / Time CHIDI Inhibitors AdvReac Mild COUGH Verified 01/18/21 11:20 Home Medications Medication Instructions Recorded Confirmed Type Humalog U-100 Insulin 1 sliding scale dose SUBCUT UD 07/05/18 01/18/21 History Lantus U-100 Insulin 23 unit SUBCUT QAM 07/05/18 01/18/21 History atorvastatin 40 mg PO PM 07/05/18 01/18/21 History citalopram 40 mg PO QAM 07/05/18 01/18/21 History gabapentin 600 mg PO TID 07/05/18 01/18/21 History hydralazine 50 mg PO TID 07/05/18 01/18/21 History levothyroxine [Synthroid] 100 mcg PO QAM 07/05/18 01/18/21 History multivitamin 1 tab PO QAM 07/05/18 01/18/21 History pantoprazole 40 mg PO QAM 07/05/18 01/18/21 History doxycycline hyclate 20 mg PO BID 08/11/19 01/18/21 History carvedilol 6.25 mg PO BID 08/21/19 01/18/21 History furosemide 40 mg PO DAILY 08/21/19 01/18/21 History Ozempic 1 mg SUBCUT WK 11/02/20 01/18/21 History bupropion HCl [Wellbutrin SR] 150 mg PO Q12H 11/02/20 01/18/21 History calcium carb-vit D2-minerals 1 tab PO DAILY 01/18/21 01/18/21 History [Calcium Citrate +] melatonin 10 mg PO HS PRN 01/18/21 01/18/21 History Patient History Medical History Chronic diastolic CHF (congestive heart failure) CKD (chronic kidney disease), stage III Depression Diabetes mellitus, type II Difficult airway for intubation Endometrial carcinoma (02/23/13) "S/P hysterectomy " GERD (gastroesophageal reflux disease) History of melanoma HLD (hyperlipidemia) HTN (hypertension) Hypothyroidism MDD (major depressive disorder) MINISTERIO on CPAP Pacemaker SSS (sick sinus syndrome) Pt admitted for elective pacemaker due to SSS. She underwent procedure without any complications. Monitored over night and discharged home. Surgical History H/O esophagogastroduodenoscopy H/O hernia repair History of cholecystectomy Hx of cardiac cath "2012, negative for CAD " Hx of gastric bypass S/P knee surgery S/P JERSE[place]-BSO Family History Other Colonic polyp GERD (gastroesophageal reflux disease) Social History Smoking Status: Never smoker Second Hand Exposure: No; Do You Dip or Chew Tobacco: No; Tobacco Cessation Education Requested by Patient: No Hx Alcohol Use: No Hx Substance Use: No Preferred Language: Italian Communication Ability: Effective Panel Machine Operator Required: No Beliefs That Will Affect Care: None Current Living Situation: Spouse Current Living Situation Comment: LIVES WITH Other Information That Helps Us Care for You: No Feels Safe at Home: Yes Safety Concerns: Feels Safe At This Time Assistive Devices: CPAP and Glasses Assistive Devices Comment: READERS Review of Systems Review of Systems: All systems reviewed & are unremarkable except as noted in Subjective Physical Exam Constitutional: well developed, + obese and cooperative; no acute distress Eyes: EOM intact bilaterally ENMT: Ears: no external ear abnormality Nose: no external nose abnormality Mouth: + dry oral mucous membranes Neck: no nuchal rigidity Respiratory: normal respiratory effort Auscultation: lungs clear to auscultation bilaterally and + diminished lung sounds sitting in bed on RA, HOB 45 degr Cardiovascular: Rate/Rhythm: regular rate and regular rhythm Heart Sounds: + murmur Extremities: no edema Gastrointestinal (Abdomen): Inspection/Auscultation: normal bowel sounds; abdomen not distended Percussion/Palpation: abdomen soft; abdomen nontender Musculoskeletal: Extremities: + abnormal strength (generalized weakness/ needs support to sit up) Skin: no rashes, warm and dry + pallor Neurologic: Motor/Sensory: + abnormal movement (+ myoclonic jerks) yancey, fl uent speech, no tremor Psychiatric: A+Ox3, euthymic affect Genitourinary: kwon w/ light yellow urine Results & [facility] ([facility]) Vital Signs (Past 12 Hours) Vital Signs Temp Pulse Pulse Resp BP BP Pulse Ox 01/18/21 16:32 80 01/18/21 15:57 36.4 C L 76 18 151/79 H 98 01/18/21 15:10 76 18 98 01/18/21 15:00 65 18 165/76 H 97 01/18/21 13:00 70 18 125/62 98 01/18/21 11:01 72 18 126/50 L 98 01/18/21 10:41 98 01/18/21 09:04 36.9 C 73 20 134/67 98 Laboratory Results 01/18/21 10:10 01/18/21 10:10 albumin 3 turbid yellow urine 1008; pH 5, 3+ LE > 30 WBC, 2+ bacteria; 10-[address] Justin 39; uOSM pending Diagnostic Findings renal u/s > symmetiric kidneys BL 12 cm approx no stones or hydro or bladder wallthickening head CT no acute i-c findings CXR no vol OL or HF or acute CP process ankle XR no frx L (1) HTN (hypertension) Hypertension type: unspecified Qualified Code(s): I10 - Essential (primary) hypertension
[2021-01-18 18:16] LABS: BUN Creatinine Ratio 11.5 (10-20); Calcium 7.2 mg/dl (8.5-10.1); Est GFR (African American) 6.9 ml/min
[2021-01-18] MEDS: cefTRIAXone SODIUM 2,000 MG in DEXTROSE 5% 50 ML IV SCH (19:18)
[2021-01-18] MEDS: carvediloL 6.25 MG TAB PO SCH (20:10)
[2021-01-18] MEDS: ATORVASTATIN 40 MG TAB PO SCH (20:10)
[2021-01-18] MEDS: HEPARIN SOD 5,000 UNIT/0.5 ML VIAL SQ SCH (21:39)
[2021-01-18 23:24] LABS: BUN Creatinine Ratio 10.7 (10-20); Creatinine Clr Calc Pharmacy 10.4 ml/min; Est GFR (African American) 6.5 ml/min; Est GFR (Non-African American) 5.6 ml/min; Potassium 4.6 mmol/L (3.5-5.1)
[2021-01-18] MEDS ORDERED: SODIUM BICARB 8.4% INJ 50 MEQ/50 ML SYR IV STA (23:32)
[2021-01-18] MEDS: LACTATED RINGER'S 1,000 ML IV SCH (23:42)
[2021-01-19 00:46] LABS: Albumin Level 2.7 gm/dl (3.4-5.0)
[2021-01-19] MEDS: LEVOTHYROXINE SODIUM 100 MCG TABLET PO SCH (06:01)
[2021-01-19] MEDS: HEPARIN SOD 5,000 UNIT/0.5 ML VIAL SQ SCH ×3 (06:02→20:17)
[2021-01-19] MEDS ORDERED: GLUCOSE 40% GEL 15 GM TUBE PO PRN (06:16)
[2021-01-19] MEDS ORDERED: GLUCOSE 10 TABS/TUBE PO PRN (06:16)
[2021-01-19] MEDS ORDERED: DEXTROSE 50% 50 ML SYRINGE IV PRN (06:16)
[2021-01-19] MEDS ORDERED: CARBOHYDRATES FOR HYPOGLYCEMIA PO PRN (06:16)
[2021-01-19] MEDS ORDERED: GLUCAGON FOR INJ 1 MG VIAL SQ PRN (06:16)
[2021-01-19] MEDS: carvediloL 6.25 MG TAB PO SCH ×2 (07:54→20:15)
[2021-01-19] MEDS: PANTOprazole 40 MG TAB PO SCH (07:54)
[2021-01-19] MEDS: hydrALAZINE TAB 50 MG TAB PO SCH ×3 (07:54→20:16)
[2021-01-19] MEDS: INSULIN ASPART 100 UNITS/ML 3 ML PEN SC SCH ×4 (07:55→20:19)
[2021-01-19] MEDS: LACTATED RINGER'S 1,000 ML IV SCH (09:24)
[2021-01-19 09:52] LABS: Hematocrit (blood only) 30.7 % (37-47); Hemoglobin 9.8 g/dL (12.0-16.0); Mean Corpuscular Hemoglobin 30.4 pg (25-34); Mean Corpuscular Hgb Conc 31.9 g/dL (32-36); Mean Corpuscular Volume 95.3 fL (80-100); Mean Platelet Volume 10.2 fL (7.4-10.4); Platelet Count 229 K/uL (130-400); RDW Standard Deviation 45.5 fL (36.4-46.3); Red Blood Count 3.22 M/uL (4.2-5.4)
[2021-01-19 09:53] LABS: Base Excess VBG -8.7 mEq/L; HCO3 VBG 18 mmol/L; PCO2 VBG 41 mmHg (38-50); PO2 VBG 28 mmHg; pH VBG 7.26 (7.36-7.41)
[2021-01-19 10:36] LABS: BUN Creatinine Ratio 10.9 (10-20); Calcium 7.6 mg/dl (8.5-10.1); Creatinine Clr Calc Pharmacy 10.5 ml/min; Est GFR (African American) 6.5 ml/min; Est GFR (Non-African American) 5.6 ml/min; Potassium 4.7 mmol/L (3.5-5.1)
[2021-01-19 10:47] LABS: Oxygen Saturation VBG < 60.0 %
[2021-01-19 14:12] LABS: Creatinine Urine Random 28.6 mg/dl; Protein Creatinine Ratio Urine 0.9 (0-0.2); Total Protein Urine Random 25.1 mg/dl (0-11.9)
--- NOTE | 2021-01-19 17:11 | Nephrology Progress Note ---
Date of Service January 19, 2021 Assessment & Plan (1) Acute kidney injury superimposed on CKD: nonoliguric LAMAR on CKD 3. intake UA suspicious for UTI > on ceftriaxone for GNR in urine. no obstruction on imaging. ATN> prerenal as not responding to fluid resuscitation so far. ozempic has been a/w worsening renal function in pts w/ volume depletion > may be at work here. CK wnl. 900 mg proteinuria but in setting of infected urine of unclear significance -NS> LR overnight and stopped by me this am as no improvemetn in #s -f/u repeat labs from this PM > if will need FR as she is drinking ad wallace -daily bmp -cont to hold lasix, ozempic; would markedly reduce dosing of gabapentin -no indication for discussion of HD at this point >> not oliguric; on RA; mild but not uncontrolled vol OL and mild acidosis emerging and apart from hyperphosphatemia, hyponatremia, chemistries ok (2) Hyponatremia: 127 on presentation. suspect hypovolemic hyponatremia but more data needed. did not respond so far and worsened slightly w/ fluid resuscitation. f/u pending recheck >not on FR currently; may need this and jolly/lasix (3) HTN (hypertension): some elevation and would expect this w/ NS running, anxiety. sbp 120-160s w/o sx > observe -cont coreg, hydralazine -off IVF (4) Myoclonic jerking: ?relation to accumuulation of gabapentin w/ renal failure on her customary high OP doses; could also in theory relate to nutritional deficiency from gastric bypass> defer to primary to eval this Admission and Anticipated Discharge Date Admission Date: January 18, 2021 Subjective feels less sob than at presentation; no n/v; still w/ myoclonic jerks adn not comfortable trying to walk, ongoing generalized weakness Review of Systems Review of Systems: All systems reviewed & are unremarkable except as noted in Subjective Physical Exam Constitutional: well developed, + obese and cooperative; no acute distress Eyes: EOM intact bilaterally ENMT: Ears: no external ear abnormality Nose: no external nose abnormality Mouth: + dry oral mucous membranes Neck: no nuchal rigidity Respiratory: normal respiratory effort Auscultation: lungs clear to auscultation bilaterally and + diminished lung sounds Cardiovascular: Rate/Rhythm: regular rate and regular rhythm Heart Sounds: + murmur Extremities: no edema Gastrointestinal (Abdomen): Inspection/Auscultation: normal bowel sounds; abdomen not distended Percussion/Palpation: abdomen soft; abdomen nontender Musculoskeletal: Extremities: + abnormal strength (generalized weakness) Skin: no rashes, warm and dry + pallor Neurologic: Motor/Sensory: + abnormal movement (+ myoclonic jerks) Psychiatric: A+Ox3, euthymic affect Results & Data ([facility]) Vital Signs (Past 12 Hours) Vital Signs Temp Pulse Resp BP Pulse Ox 01/19/21 16:27 36.7 C 64 20 149/65 H 96 01/19/21 12:07 36.7 C 65 19 136/76 97 01/19/21 08:20 36.8 C 73 19 126/73 96 Laboratory Results 01/19/21 09:35 (1) HTN (hypertension) Hypertension type: unspecified Qualified Code(s): I10 - Essential (primary) hypertension
[2021-01-19 17:23] LABS: BUN Creatinine Ratio 10.7 (10-20); Calcium 7.6 mg/dl (8.5-10.1); Creatinine Clr Calc Pharmacy 10.5 ml/min; Est GFR (African American) 6.5 ml/min; Est GFR (Non-African American) 5.6 ml/min; Potassium 4.5 mmol/L (3.5-5.1)
--- NOTE | 2021-01-19 18:22 | Hospitalist Progress Note ---
Date of Service January 19, 2021 Assessment & Plan (1) Acute kidney injury (LAMAR) with acute tubular necrosis (ATN): DDx includes but not limited to dehydration (camping out in heat and sun over the weekend), intrinsic renal disease, drug reaction-recently started Ozempic. Questionable volume overload, electrolyte abnormalities and increasing uremia. Management per Nephro (2) CKD (chronic kidney disease), stage III: making urine with >2L total output overnight. Feeling better after some IVF, however, all but bicarb not much improved. Nephro to adjust. Cont to hold gabapentin, bupropion, citalopram until renal functions improve (3) Hyponatremia: sodium remains 125. Cont fluid restriction/urea per nephro (4) Adverse effect of drug therapy: Possible adverse effect of insulin and oral hypoglycemic drugs, in the setting of Ozempic use and LAMAR. May have contributed to hypoglycemia and LAMAR seen on admission. (5) Hypoglycemia: On admission, resolved. Likely due to poor p.o. intake in combination with continued insulin use -Hgb A1c 7.4 10/2020 (6) Diabetes mellitus, type II: cont coverage insulin with carb coverage and correction factor. (7) HTN (hypertension): -BP slightly elevated, continue carvedilol, hydralazine (8) Chronic diastolic CHF (congestive heart failure): -Hold Lasix due to LAMAR (9) MINISTERIO on CPAP: -CPAP as per home settings (10) Hypothyroidism: chronic, stable, cont home levothyroxine (11) Chronic pain: Takes gabapentin which has been on hold since admission. Still likely circulating in setting of renal failure given tremulousness and lack of withdrawal symptoms. (12) DVT prophylaxis: Heparin Full Code Dispo-cont telemetry montioring. Maria D Baird DO [facility] Hospitalist Admission and Anticipated Discharge Date Admission Date: January 18, 2021 Subjective 60 yo F with acute renal failure and UTI Hemodialysis catheter placement in the right IJ Seen post HD treatment and feeling well tremulousness improving no pain Review of Systems Review of Systems: All systems reviewed & are unremarkable except as noted in Subjective Physical Exam Physical Exam: CONSTITUTIONAL: WNWD, vitals as above, generally well- appearing EYES: normal conjunctivae, no scleral icterus ENT: external ear and nose normal, MMM RESPIRATORY: clear to auscultation bilaterally, no crackles, rales or wheezes, normal respiratory effort CARDIOVASCULAR: regular rate and rhythm, S1 and 2 heard without murmurs, gallops or rubs, no JVD, no peripheral edema GASTROINTESTINAL: soft, nontender, nondistended. MUSCULOSKELETAL: generalized weakness, head is normocephalic and atraumatic, neck supple, normal palpation of chest wall without tenderness SKIN: warm and dry NEUROLOGIC: CN 2-12 grossly intact, no sensory deficit, normal cognition, normal speech, slight generalized tremulousness-improving, no gross focal deficits. PSYCHIATRIC: alert cooperative and oriented to person, place and time. Results & Data Results & Data ([facility]) Vital Signs (Past 12 Hours) Vital Signs Temp Pulse Resp BP Pulse Ox 01/19/21 16:27 36.7 C 64 20 149/65 H 96 01/19/21 12:07 36.7 C 65 19 136/76 97 01/19/21 08:20 36.8 C 73 19 126/73 96 Laboratory Results Short CBC 01/19/21 Range/Units 09:35 WBC 10.50 (4.8-10.8) K/uL Hgb 9.8 L (12.0-16.0) g/dL Hct 30.7 L (37-47) % Plt Count 229 (130-400) K/uL BMP 01/18/21 01/19/21 01/19/21 22:22 09:35 16:12 Sodium 126 L 125 L 125 L Potassium 4.6 4.7 4.5 Chloride 98 95 L 94 L Carbon Dioxide 15 L 20 L 21 BUN 77 H 78 H 77 H Creatinine 7.17 H* D 7.14 H* 7.15 H* Glucose 178 H 197 H 115 H Calcium 7.0 L 7.6 L 7.6 L Liver Function 01/18/21 Range/Units 22:22 Albumin 2.7 L (3.4-5.0) gm/dl Medications Administered Current Inpatient Medications Acetaminophen (Acetaminophen 325 Mg Tab) 650 mg PO Q4H PRN PRN Reason: Pain or Fever Stop: 02/17/21 15:48 Atorvastatin Calcium (Atorvastatin 40 Mg Tab) 40 mg PO PM PAULA Stop: 02/17/21 20:59 Last Admin: 01/18/21 20:10 Dose: 40 mg Documented by: Carvedilol (Carvedilol 6.25 Mg Tab) 6.25 mg PO BID PAULA Stop: 02/17/21 20:59 Last Admin: 01/19/21 07:54 Dose: 6.25 mg Documented by: Dextrose (Dextrose 50% 50 Ml Syringe) 25 - 50 ml IV UD PRN; Protocol PRN Reason: Hypoglycemia Protocol Stop: 02/17/21 15:48 Dextrose (Dextrose 50% 50 Ml Syringe) 25 - 50 ml IV UD PRN; Protocol PRN Reason: Hypoglycemia Protocol Stop: 02/18/21 06:15 Glucagon (Glucagon For Inj 1 Mg Vial) 1 mg SQ UD PRN; Protocol PRN Reason: Hypoglycemia Protocol Stop: 02/17/21 15:48 Glucagon (Glucagon For Inj 1 Mg Vial) 1 mg SQ UD PRN; Protocol PRN Reason: Hypoglycemia Protocol Stop: 02/18/21 06:15 Glucose (Glucose 10 Tabs/Tube) 4 - 8 tabs PO UD PRN; Protocol PRN Reason: Hypoglycemia Protocol Stop: 02/17/21 15:48 Glucose (Glucose 40% Gel 15 Gm Tube) 15 - 30 gm PO UD PRN; Protocol PRN Reason: Hypoglycemia Protocol Stop: 02/17/21 15:48 Glucose (Glucose 10 Tabs/Tube) 4 - 8 tabs PO UD PRN; Protocol PRN Reason: Hypoglycemia Protocol Stop: 02/18/21 06:15 Glucose (Glucose 40% Gel 15 Gm Tube) 15 - 30 gm PO UD PRN; Protocol PRN Reason: Hypoglycemia Protocol Stop: 02/18/21 06:15 Heparin Sodium (Porcine) (Heparin Sod 5,000 Unit/0.5 Ml Vial) 5,000 units SQ Q8 PAULA Stop: 02/17/21 21:59 Last Admin: 01/19/21 13:48 Dose: 5,000 units Documented by: Hydralazine HCl (Hydralazine Tab 50 Mg Tab) 50 mg PO TID [facility] Stop: 02/17/21 16:29 Last Admin: 01/19/21 13:50 Dose: 50 mg Documented by: Ceftriaxone Sodium 2,000 mg/ (Dextrose) 70 mls @ 100 mls/hr IV Q24H [facility]; Protocol Stop: 01/23/21 18:59 Last Infusion: 01/18/21 20:05 Dose: Infused Documented by: Insulin Aspart (Insulin Aspart 100 Units/Ml 3 Ml Pen) 0 units SC ACHS [facility] Stop: 02/18/21 06:19 Last Admin: 01/19/21 17:20 Dose: 2 units Documented by: Levothyroxine Sodium (Levothyroxine Sodium 100 Mcg Tablet) 100 mcg PO DAILYBB [facility] Stop: 02/18/21 06:29 Last Admin: 01/19/21 06:01 Dose: 100 mcg Documented by: Miscellaneous (Carbohydrates For Hypoglycemia ) 15 - 30 gm PO UD PRN PRN Reason: Hypoglycemia Protocol Stop: 02/17/21 15:48 Miscellaneous (Carbohydrates For Hypoglycemia ) 15 - 30 gm PO UD PRN PRN Reason: Hypoglycemia Protocol Stop: 02/18/21 06:15 Nystatin (Nystatin Powder 15gm Btl) 1 appln EXT BID PRN PRN Reason: abdominal fold irritation Stop: 02/17/21 16:45 Pantoprazole Sodium (Pantoprazole 40 Mg Tab) 40 mg PO QAM [facility] Stop: 02/18/21 08:59 Last Admin: 01/19/21 07:54 Dose: 40 mg Documented by: Urea (Urea (Ure-Na) 15 Gm Pack) 15 gm PO BID [facility] Stop: 02/18/21 18:29 (1) HTN (hypertension) Hypertension type: unspecified Qualified Code(s): I10 - Essential (primary) hypertension
[2021-01-19] MEDS: ATORVASTATIN 40 MG TAB PO SCH (20:16)
[2021-01-19] MEDS: UREA (UREA-NA) 15 GM PACK PO SCH ×2 (20:39→20:46)
[2021-01-19] MEDS: cefTRIAXone SODIUM 2,000 MG in DEXTROSE 5% 50 ML IV SCH (20:40)
[2021-01-20] MEDS: LEVOTHYROXINE SODIUM 100 MCG TABLET PO SCH (05:11)
[2021-01-20] MEDS: HEPARIN SOD 5,000 UNIT/0.5 ML VIAL SQ SCH ×3 (05:12→19:59)
[2021-01-20] MEDS: hydrALAZINE TAB 50 MG TAB PO SCH ×3 (08:10→19:57)
[2021-01-20] MEDS: carvediloL 6.25 MG TAB PO SCH ×2 (08:10→19:58)
[2021-01-20] MEDS: UREA (UREA-NA) 15 GM PACK PO SCH (08:11)
[2021-01-20] MEDS: PANTOprazole 40 MG TAB PO SCH (08:11)
[2021-01-20] MEDS: INSULIN ASPART 100 UNITS/ML 3 ML PEN SC SCH ×4 (08:13→19:57)
[2021-01-20 09:20] LABS: BUN Creatinine Ratio 13.4 (10-20); Calcium 8.3 mg/dl (8.5-10.1); Creatinine Clr Calc Pharmacy 10.2 ml/min; Est GFR (African American) 6.2 ml/min; Est GFR (Non-African American) 5.4 ml/min; Magnesium 2.4 mg/dl (1.8-2.4); Potassium 4.4 mmol/L (3.5-5.1)
[2021-01-20] MEDS ORDERED: SODIUM BICARBONATE 8.4% 75 MEQ in SODIUM CHLORIDE 0.45 % 1,000 ML IV STA (09:36)
[2021-01-20] MEDS ORDERED: SODIUM BICARBONATE 8.4% 150 MEQ in DEXTROSE 5% 1,000 ML IV STA (09:37)
[2021-01-20 09:56] LABS: Estimated Average Glucose 166 mg/dl; Hemoglobin A1C 7.4 % (4.5-5.6)
--- NOTE | 2021-01-20 11:00 | Nephrology Progress Note ---
Date of Service January 20, 2021 Assessment & Plan (1) Acute kidney injury superimposed on CKD: nonoliguric LAMAR on CKD 3. intake UA c/w UTI and cx w/ sandra Se E coli > on ceftriaxone. no obstruction on imaging. doubt glomerular process based on UA, clinical presentation. no concern for nephrotic syndrome. minimal improvement with fluid resusciation; ATN. ozempic has been a/w worsening renal function in pts w/ volume depletion > may be at work here. volume status in obese pt actually challenging to assess. CK wnl. 900 mg proteinuria but in setting of infected urine of unclear significance -check ESR w/ labs tomorrow ordered -daily bmp -cont strict I/O > leave kwon one more day at least >> no concerns for oliguria so may be able to remove soon but will need to see what sNa does >>w/ worsening BUN, acid base balance, creatinine, phos despite supportive care >> moved ahead w/ trial of dialysis for clearance primarily; consent on chart; ICU assistance w/ line placement appreciated; no UF today and will do 2.5 hr on small dialyzer; next HD on 01/22 if indicated unless emergency needs on 01/21 -will stop IVF -cont to hold lasix, ozempic >w/ dialysis, monitor for withdrawal from gabapentin Care coordinated w/ Dr Baird Present on Admission?: Yes (2) Myoclonic jerking: longstanding issue x mos [employer] exacerbated prior to arrival and ongoing ?relation to accumulation of gabapentin w/ renal failure on her customary high OP doses; could also in theory relate to nutritional deficiency from gastric bypass> defer to primary to eval this Present on Admission?: Yes (3) Hyponatremia: 127 on presentation. suspected hypovolemic hyponatremia but no response with this approach. challenging situation and w/ interference from uremia -FR liberalized to 1.5L/ day -stopped jolly >will recheck bmp at least 2 hrs post HD today Present on Admission?: Yes (4) HTN (hypertension): some elevation and would expect this w/ NS running, anxiety. sbp 120-160s w/o sx > observe -cont coreg, hydralazine -off IVF Present on Admission?: Yes Admission and Anticipated Discharge Date Admission Date: January 18, 2021 Subjective seen on rounds this am; still w/ myoclonic jerking; no n/v, no sob, no edema; ambulates w/ care to bathroom; sodium, BUN, creat all worsening Review of Systems Review of Systems: All systems reviewed & are unremarkable except as noted in Subjective Physical Exam Constitutional: well developed, well nourished, + obese and cooperative; no acute distress Eyes: EOM intact bilaterally ENMT: Ears: no external ear abnormality Nose: no external nose abnormality Mouth: + dry oral mucous membranes Neck: no nuchal rigidity Respiratory: normal respiratory effort Auscultation: + diminished lung sounds and + crackles (fine BL base end insp crackles on RA) Cardiovascular: Rate/Rhythm: regular rate and regular rhythm Extremities: no edema Gastrointestinal (Abdomen): Inspection/Auscultation: + abdomen distended (slight ) and normal bowel sounds Percussion/Palpation: abdomen soft; abdomen nontender and no guarding Musculoskeletal: Extremities: + abnormal strength (generalized weakness) Skin: no rashes, warm and dry Neurologic: awake yancey, fluent speech, ongoing + tremor Psychiatric: A+Ox3, euthymic affect Genitourinary: kwon w/ ample light yellow urine Results & Data ([facility]) Vital Signs (Past 12 Hours) Vital Signs Temp Pulse Pulse Resp BP Pulse Ox 01/20/21 07:40 36.7 C 71 18 156/74 H 96 01/20/21 03:32 36.7 C 76 18 144/74 H 94 01/20/21 02:11 77 16 95 01/19/21 22:58 36.5 C 69 18 148/66 H 95 Laboratory Results 01/19/21 09:35 01/20/21 07:45 (1) HTN (hypertension) Hypertension type: unspecified Qualified Code(s): I10 - Essential (primary) hypertension
--- NOTE | 2021-01-20 11:20 | Critical Care Consultation ---
Date of Consultation January 20, 2021 Assessment & Plan (1) Acute renal failure: Impression: 60 y/o F with acute renal failure needing urgent HD and access for HD. Recommendations: 1. Will place US guided temp HD catheter at bedside. Follow up CXR for placement prior to use. 2. Management of the patients other issues per hospitalists and specialists. Will sign off after line placed. History of Present Illness Attending Physician: Maria D Baird DO History of Present Illness Asked by nephrology to evaluate this patient for HD temporary line access. Patient was seen and examined. EMR reviewed. Discussed with nephrology. Patient is a 60-year-old female admitted to the facility 01/18/2021 with weakness and myotonic spasms. She has a history of chronic kidney disease and was found to be in acute renal failure. She was seen in consultation by nephrology. She has been managed expectantly but unfortunately her numbers have increased and she requires dialysis. Surgery is not available that over the weekend to provide a tunneled permacath so the ICU service was contacted to see if we can place a temporary HD catheter. Apparently dialysis services are not available tomorrow so they would like to get dialysis performed today. The patient is awake alert and conversant. She denies any chest pain shortness of breath. She not had any bleeding issues. She is not on any anticoagulants. She is morbidly obese on CPAP at night. Allergies Allergy/AdvReac Type Severity Reaction Status Date / Time CHIDI Inhibitors AdvReac Mild COUGH Verified 01/18/21 11:20 Home Medications Medication Instructions Recorded Confirmed Type Humalog U-100 Insulin 1 sliding scale dose SUBCUT UD 07/05/18 01/18/21 History Lantus U-100 Insulin 23 unit SUBCUT QAM 07/05/18 01/18/21 History atorvastatin 40 mg PO PM 07/05/18 01/18/21 History citalopram 40 mg PO QAM 07/05/18 01/18/21 History gabapentin 600 mg PO TID 07/05/18 01/18/21 History hydralazine 50 mg PO TID 07/05/18 01/18/21 History levothyroxine [Synthroid] 100 mcg PO QAM 07/05/18 01/18/21 History multivitamin 1 tab PO QAM 07/05/18 01/18/21 History pantoprazole 40 mg PO QAM 07/05/18 01/18/21 History doxycycline hyclate 20 mg PO BID 08/11/19 01/18/21 History carvedilol 6.25 mg PO BID 08/21/19 01/18/21 History furosemide 40 mg PO DAILY 08/21/19 01/18/21 History Ozempic 1 mg SUBCUT WK 11/02/20 01/18/21 History bupropion HCl [Wellbutrin SR] 150 mg PO Q12H 11/02/20 01/18/21 History calcium carb-vit D2-minerals 1 tab PO DAILY 01/18/21 01/18/21 History [Calcium Citrate +] melatonin 10 mg PO HS PRN 01/18/21 01/18/21 History Patient History Medical History Chronic diastolic CHF (congestive heart failure) CKD (chronic kidney disease), stage III Depression Diabetes mellitus, type II Difficult airway for intubation Endometrial carcinoma (02/23/13) "S/P hysterectomy " GERD (gastroesophageal reflux disease) History of melanoma HLD (hyperlipidemia) HTN (hypertension) Hypothyroidism MDD (major depressive disorder) MINISTERIO on CPAP Pacemaker SSS (sick sinus syndrome) Pt admitted for elective pacemaker due to SSS. She underwent procedure without any complications. Monitored over night and discharged home. 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 No additions or deletions Physical Exam Constitutional: well developed, well nourished, + obese and cooperative; no acute distress Eyes: EOM intact bilaterally ENMT: Ears: no external ear abnormality Nose: no external nose abnormality Mouth: + dry oral mucous membranes Neck: no nuchal rigidity Respiratory: normal respiratory effort Auscultation: + diminished lung sounds and + crackles (fine BL base end insp crackles on RA) Cardiovascular: Rate/Rhythm: regular rate and regular rhythm Extremities: no edema Gastrointestinal (Abdomen): Inspection/Auscultation: + abdomen distended (slight ) and normal bowel sounds Percussion/Palpation: abdomen soft; abdomen nontender and no guarding Musculoskeletal: Extremities: + abnormal strength (generalized weakness) Skin: no rashes, warm and dry Neurologic: awake yancey, fluent speech, ongoing + tremor Results & Data Results & Data ([facility]) Vital Signs (Past 12 Hours) Vital Signs Temp Pulse Pulse Resp BP Pulse Ox 01/20/21 07:40 36.7 C 71 18 156/74 H 96 01/20/21 03:32 36.7 C 76 18 144/74 H 94 01/20/21 02:11 77 16 95 Laboratory Results 01/19/21 09:35 01/20/21 07:45 Venous blood gas from yesterday showed pH 7.26 with a PCO2 of 41. Last coagulation panel performed in August showed an INR 1.1. She is not on any anticoagulants or blood thinners Diagnostic Findings Chest x-ray from presentation was independently reviewed. Mild pulmonary vascular congestion noted. Pacemaker in place. Coding Level of Care Code 72155 Inpt Consult Level 3 Diagnoses Acute renal failure N17.9 Acute renal failure type: unspecified (1) Acute renal failure Acute renal failure type: unspecified Qualified Code(s): N17.9 - Acute kidney failure, unspecified
[2021-01-20] MEDS ORDERED: SODIUM CHLORIDE 0.9% 1000ML 1,000 ML IV PRN (11:21)
--- NOTE | 2021-01-20 11:25 | Procedure Note ---
Procedure Note Date of Service January 20, 2021 CENTRAL/TEMPORARY HD LINE PROCEDURE NOTE: Procedure: Temporarily hemodialysis catheter line placement Provider: Beto Syed MD Indication: Central Drug Administration, Poor Venous Access, Multiple Lab Draws Necessary, etc. Anesthesia: 10 mL lidocaine 1% Site: Right internal jugular Consent was signed and placed on the chart prior to procedure. Indication, risks, and benefits were explained at length. A time-out was completed verifying correct patient, procedure, site, positionin g, and implants(s) or special equipment if applicable. Patients left neck was cleansed and draped in the typical sterile fashion using Chloraprep. The Internal Jugular Vein and Carotid Artery were identified using ultrasound. The superficial tissue was anesthetized using 10 mL mL of 1% lidocaine without epinephrine under direct visualization with the ultrasound. After adequate anesthetization was achieved, the Internal Jugular vein was cannulated under direct ultrasound guidance using an introducer needle on a syringe. Good venous blood return was maintained prior to removal of syringe from introducer needle. Using Seldinger Technique, a guide wire was advanced through the introducer needle without resistance. The introducer needle was removed. A small incision was made in penetrating fashion at the guide wire insertion site utilizing an 11 blade scalpel. The serial dilators was advanced to the vessel without resistance. The dilator was exchanged for the 20 cm HD catheter which was a dvanced into the vessel without resistance. The guide wire was removed intact from the catheter without issue. Each port was easily flushed with sterile saline. The catheter was placed at 20 cm and sutured in place. BioPatch was applied to the catheter and a sterile Tegaderm dressing was applied over the catheter with careful attention to sterility. Patient tolerated procedure well. No immediate complications were met. Post procedure x-ray is currently pending Estimated blood loss: 10 mL Coding CPT Codes Tubes, Drains, and Vasc Access - Tubes, Drains, and Vasc Access: [id number] Insertion of cannula for hemodialysis ([id number]) Tubes, Drains, and Vasc Access - Tubes, Drains, and Vasc Access: [id number] Ultrasound Guidance For Vascular ([id number]) [facility] Procedure Codes (Charges) Tubes, Drains, and Vasc Access Procedure 1: Tubes, Drains, and Vasc Access: [id number] Insertion of cannula for hemodialysis Procedure 2: Tubes, Drains, and Vasc Access: [id number] Ultrasound Guidance For Vascular
--- NOTE | 2021-01-20 11:45 | XRay Report ---
SINGLE VIEW CHEST CLINICAL HISTORY: Central venous catheter placement. FINDINGS: An AP, portable, upright chest radiograph is compared to study dated 01/18/2021. A right inte rnal jugular central venous catheter has been placed. The tip of the catheter projects over the right atrium. A 2-lead cardiac pacemaker is unchanged in position. The heart is mildly enlarged noting ath erosclerotic calcification of the thoracic aorta. The pulmonary vasculature is noncongested. The lung s and pleural spaces are clear. No pneumothorax is seen. The skeletal structures are osteopenic. The bony thorax is grossly intact. IMPRESSION: 1. A right internal jugular central venous catheter has been placed as above. No pneumothorax is iden tified post procedure. 2. Cardiomegaly and cardiac pacemaker with no radiographic evidence of congestive failure. 3. No airspace consolidation or large pleural effusion is identified. ACT 112: Negative or not required by law. Electronically signed by: Marco Antonio Martins M.D. 01/20/2021 11:44 AM
[2021-01-20] MEDS: ACETAMINOPHEN 325 MG TAB PO PRN (12:21)
[2021-01-20] MEDS ORDERED: XYLOCAINE 1%/SOD BICARB 20 ML VIAL INFIL ONE (15:02)
[2021-01-20] MEDS: ATORVASTATIN 40 MG TAB PO SCH (19:58)
[2021-01-20] MEDS: cefTRIAXone SODIUM 2,000 MG in DEXTROSE 5% 50 ML IV SCH (20:00)
[2021-01-20 21:44] LABS: BUN Creatinine Ratio 12.9 (10-20); Calcium 7.7 mg/dl (8.5-10.1); Creatinine Clr Calc Pharmacy 15.5 ml/min; Est GFR (African American) 10.4 ml/min; Est GFR (Non-African American) 8.9 ml/min; Potassium 3.8 mmol/L (3.5-5.1)
[2021-01-21] MEDS: ACETAMINOPHEN 325 MG TAB PO PRN ×3 (01:58→17:43)
[2021-01-21] MEDS: LEVOTHYROXINE SODIUM 100 MCG TABLET PO SCH (05:56)
[2021-01-21] MEDS: HEPARIN SOD 5,000 UNIT/0.5 ML VIAL SQ SCH ×3 (05:56→19:16)
--- NOTE | 2021-01-21 07:45 | Hospitalist Progress Note ---
Date of Service January 20, 2021 Assessment & Plan (1) Acute kidney injury (LAMAR) with acute tubular necrosis (ATN): DDx includes but not limited to dehydration (camping out in heat and sun over the weekend), intrinsic renal disease, drug reaction-recently started Ozempic. Questionable volume overload, electrolyte abnormalities and increasing uremia. First HD session today after temporary HD catheter in the neck. Labs in am. (2) CKD (chronic kidney disease), stage III: making urine. Cont to hold gabapentin, bupropion, citalopram until renal functions improve (3) Hyponatremia: sodium decreased to 124-starting HD today. Cont fluid restriction per nephro (4) Diabetes mellitus, type II: cont coverage insulin with carb coverage and correction factor. (5) Adverse effect of drug therapy: Possible adverse effect of insulin and oral hypoglycemic drugs, in the setting of Ozempic use and LAMAR. May have contributed to hypoglycemia and LAMAR seen on admission. (6) Hypoglycemia: On admission, resolved. Likely due to poor p.o. intake in combination with continued insulin use -Hgb A1c 7.4 10/2020 (7) HTN (hypertension): -BP slightly elevated, continue carvedilol, hydralazine (8) Chronic diastolic CHF (congestive heart failure): -Hold Lasix due to LAMAR (9) MINISTERIO on CPAP: -CPAP as per home settings (10) Hypothyroidism: chronic, stable, cont home levothyroxine (11) Chronic pain: Takes gabapentin which has been on hold since admission. Still likely circulating in setting of renal failure given tremulousness and lack of withdrawal symptoms. (12) DVT prophylaxis: Heparin Full Code Dispo-cont telemetry montioring. DO [facility] Admission and Anticipated Discharge Date Admission Date: January 18, 2021 Subjective 60 yo F with acute renal failure and UTI Hemodialysis cathether placement in the [facility] Seen post HD treatment and feeling well tremulousness improving no pain Review of Systems Review of Systems: All systems reviewed & are unremarkable except as noted in Subjective Physical Exam Physical Exam: CONSTITUTIONAL: WNWD, vitals as above, generally well- appearing EYES: normal conjunctivae, no scleral icterus ENT: external ear and nose normal, MMM RESPIRATORY: clear to auscultation bilaterally, no crackles, rales or wheezes, normal respiratory effort CARDIOVASCULAR: regular rate and rhythm, S1 and 2 heard without murmurs, gallops or rubs, no JVD, no peripheral edema GASTROINTESTINAL: soft, nontender, nondistended. MUSCULOSKELETAL: generalized weakness, head is normocephalic and atraumatic, neck supple, normal palpation of chest wall without tenderness SKIN: warm and dry NEUROLOGIC: CN 2-12 grossly intact, no sensory deficit, normal cognition, normal speech, slight generalized tremulousness-improving, no gross focal deficits. PSYCHIATRIC: alert cooperative and oriented to person, place and time. Results & Data Results & Data ([facility]) Vital Signs (Past 12 Hours) Vital Signs Temp Pulse Resp BP Pulse Ox 01/21/21 07:44 36.6 C 69 19 144/72 H 94 01/21/21 03:06 36.8 C 65 20 142/76 H 97 01/20/21 23:03 36.7 C 67 20 145/74 H 97 (1) HTN (hypertension) Hypertension type: unspecified Qualified Code(s): I10 - Essential (primary) hypertension
[2021-01-21] MEDS: hydrALAZINE TAB 50 MG TAB PO SCH ×3 (07:57→19:16)
[2021-01-21] MEDS: PANTOprazole 40 MG TAB PO SCH (07:57)
[2021-01-21] MEDS: carvediloL 6.25 MG TAB PO SCH ×2 (07:57→19:15)
[2021-01-21] MEDS: INSULIN ASPART 100 UNITS/ML 3 ML PEN SC SCH ×4 (08:00→19:18)
--- NOTE | 2021-01-21 10:21 | Nephrology Progress Note ---
Date of Service January 21, 2021 Assessment & Plan (1) Acute kidney injury superimposed on CKD: nonoliguric LAMAR on CKD 3. intake UA c/w UTI and cx w/ sandra Se E coli > on ceftriaxone. no obstruction on imaging. doubt glomerular process based on UA, clinical presentation. no concern for nephrotic syndrome. minimal improvement with fluid resusciation; ATN. ozempic has been a/w worsening renal function in pts w/ volume depletion > may be at work here. volume status in obese pt actually challenging to assess. CK wnl; ESR mid 60s, far less concerning for GN in this range. 900 mg proteinuria but in setting of infected urine of unclear significance -daily bmp -cont strict I/O > will d/c kwon to lower copmlication risk >>w/ worsening BUN, acid base balance, creatinine, phos despite supportive care >> moved ahead w/ trial of dialysis starting 01/20 for clearance primarily; consent on chart; ICU assistance w/ line placement appreciated; no UF on first 01/20 x 2.5 hr on small dialyzer; -temp cath placed by [facility] 01/20; first HD same day >next HD 01/22, eval at least for it at that time -cont to hold lasix, ozempic, IVF >w/ dialysis, monitor for withdrawal from gabapentin (2) Myoclonic jerking: longstanding issue x mos [employer] EM[employer]OY[employer] exacerbated prior to arrival and ongoing ?relation to accumulation of gabapentin w/ renal failure on her customary high OP doses; could also in theory relate to nutritional deficiency from gastric bypass> defer to primary to eval this (3) Hyponatremia: 127 on presentation. suspected hypovolemic hyponatremia but no response with this approach. challenging situation and w/ interference from uremia -FR liberalized to 1.5L/ day -up to 129 today w/ 2.7 L negative; cont to follow (4) HTN (hypertension): some elevation and would expect this w/ held meds, anxiety. sbp 120-160s w/o sx > observe; no ivf running now -cont coreg, hydralazine; trial of amlodipine started -off IVF Admission and Anticipated Discharge Date Admission Date: January 18, 2021 Subjective tolerated HD last evenign w/o issues; myoclonic jerking improving further yesterday prior to HD and again now; no sob, no edema Review of Systems Review of Systems: All systems reviewed & are unremarkable except as noted in Subjective Physical Exam Constitutional: well developed, well nourished, + obese and cooperative; no acute distress Eyes: EOM intact bilaterally ENMT: Ears: no external ear abnormality Nose: no external nose abnormality Mouth: + dry oral mucous membranes Neck: no nuchal rigidity Respiratory: normal respiratory effort Auscultation: lungs clear to auscultation bilaterally, + diminished lung sounds and + crackles (fine BL base end insp crackles on RA) Cardiovascular: Rate/Rhythm: regular rate and regular rhythm Heart Sounds: + murmur Extremities: no edema Gastrointestinal (Abdomen): Inspection/Auscultation: + abdomen distended (slight ) and normal bowel sounds Percussion/Palpation: abdomen soft; abdomen nontender and no guarding Musculoskeletal: Extremities: + abnormal strength (generalized weakness) Skin: no rashes, warm and dry + pallor Neurologic: awake Motor/Sensory: + abnormal movement (+ myoclonic jerks) Psychiatric: A+Ox3, euthymic affect Results & Data ([facility]) Vital Signs (Past 12 Hours) Vital Signs Temp Pulse Resp BP Pulse Ox 01/21/21 07:44 36.6 C 69 19 144/72 H 94 01/21/21 03:06 36.8 C 65 20 142/76 H 97 01/20/21 23:03 36.7 C 67 20 145/74 H 97 Laboratory Results 01/21/21 01/21/21 01/21/21 Range/Units 07:09 06:31 06:31 ESR 64 H (0-30) mm/hr Sodium (136-145) mmol/L Potassium (3.5-5.1) mmol/L Chloride (98-107) mmol/L Carbon Dioxide (21-32) mmol/L Anion Gap (3-11) BUN (7-18) mg/dl Creatinine (0.6-1.2) mg/dl Est Cr Clr Drug Dosing ml/min Est GFR ( Amer) ml/min Est GFR (Non-Af Amer) ml/min BUN/Creatinine Ratio (10-20) Glucose (70-99) mg/dl POC Glucose 219 H (70-99) mg/dl Calcium (8.5-10.1) mg/dl Phosphorus 6.1 H (2.5-4.9) mg/dl Hep Bs Antigen Hep Bs Antibody Hep Bs Antibody, Quant Hep B Core IgM Ab 01/20/21 01/20/21 01/20/21 Range/Units 20:46 19:54 15:37 ESR (0-30) mm/hr Sodium 129 L (136-145) mmol/L Potassium 3.8 (3.5-5.1) mmol/L Chloride 98 (98-107) mmol/L Carbon Dioxide 22 (21-32) mmol/L Anion Gap 9.0 (3-11) BUN 63 H (7-18) mg/dl Creatinine 4.85 H* D (0.6-1.2) mg/dl Est Cr Clr Drug Dosing 15.5 ml/min Est GFR ( Amer) 10.4 ml/min Est GFR (Non-Af Amer) 8.9 ml/min BUN/Creatinine Ratio 12.9 (10-20) Glucose 288 H (70-99) mg/dl POC Glucose 217 H 155 H (70-99) mg/dl Calcium 7.7 L (8.5-10.1) mg/dl Phosphorus (2.5-4.9) mg/dl Hep Bs Antigen Hep Bs Antibody Hep Bs Antibody, Quant Hep B Core IgM Ab 01/20/21 01/20/21 01/20/21 Range/Units 11:52 11:52 11:14 ESR (0-30) mm/hr Sodium (136-145) mmol/L Potassium (3.5-5.1) mmol/L Chloride (98-107) mmol/L Carbon Dioxide (21-32) mmol/L Anion Gap (3-11) BUN (7-18) mg/dl Creatinine (0.6-1.2) mg/dl Est Cr Clr Drug Dosing ml/min Est GFR ( Amer) ml/min Est GFR (Non-Af Amer) ml/min BUN/Creatinine Ratio (10-20) Glucose (70-99) mg/dl POC Glucose 243 H (70-99) mg/dl Calcium (8.5-10.1) mg/dl Phosphorus (2.5-4.9) mg/dl Hep Bs Antigen Pending Hep Bs Antibody Pending Hep Bs Antibody, Quant Pending Hep B Core IgM Ab Pending (1) HTN (hypertension) Hypertension type: unspecified Qualified Code(s): I10 - Essential (primary) hypertension
[2021-01-21] MEDS: amLODIPine BESYLATE 5 MG TAB PO SCH (14:34)
--- NOTE | 2021-01-21 15:51 | Hospitalist Progress Note ---
Date of Service January 21, 2021 Assessment & Plan (1) Acute kidney injury (LAMAR) with acute tubular necrosis (ATN): DDx includes but not limited to dehydration (camping out in heat and sun over the weekend), intrinsic renal disease, drug reaction-recently started Ozempic. Questionable volume overload, electrolyte abnormalities and increasing uremia. First HD session 01/20 after temporary HD catheter in the neck. (2) CKD (chronic kidney disease), stage III: making urine. Cont to hold gabapentin, bupropion, citalopram until renal functions improve (3) Hyponatremia: sodium improved with hemodialysis. Cont fluid restriction per nephro (4) Diabetes mellitus, type II: cont coverage insulin with carb coverage and correction factor. (5) Adverse effect of drug therapy: Possible adverse effect of insulin and oral hypoglycemic drugs, in the setting of Ozempic use and LAMAR. May have contributed to hypoglycemia and LAMAR seen on admission. (6) Hypoglycemia: On admission, resolved. Likely due to poor p.o. intake in combination with continued insulin use -Hgb A1c 7.4 10/2020 (7) HTN (hypertension): -BP slightly elevated, continue carvedilol, hydralazine (8) Chronic diastolic CHF (congestive heart failure): -Hold Lasix due to LAMAR (9) MINISTERIO on CPAP: -CPAP as per home settings (10) Hypothyroidism: chronic, stable, cont home levothyroxine (11) Chronic pain: Takes gabapentin which has been on hold since admission. Still likely circulating in setting of renal failure given tremulousness and lack of withdrawal symptoms. Monitor for withdrawal from this or other held pain meds- may need to slowly add back. Patient is also aware of this possibility. (12) DVT prophylaxis: Heparin Full Code Dispo-cont telemetry montioring. Maria D Baird DO [facility] Hospitalist Admission and Anticipated Discharge Date Admission Date: January 18, 2021 Subjective 60 yo F with acute renal failure and UTI Hemodialysis catheter placement in the right IJ Doing well generally Tremors have resolved Weakness is improving. Review of Systems Review of Systems: All systems reviewed & are unremarkable except as noted in Subjective Physical Exam Physical Exam: CONSTITUTIONAL: WNWD, vitals as above, generally well- appearing EYES: normal conjunctivae, no scleral icterus ENT: external ear and nose normal, MMM RESPIRATORY: clear to auscultation bilaterally, no crackles, rales or wheezes, normal respiratory effort CARDIOVASCULAR: regular rate and rhythm, S1 and 2 heard without murmurs, gallops or rubs, no JVD, no peripheral edema GASTROINTESTINAL: soft, nontender, nondistended. MUSCULOSKELETAL: generalized weakness, head is normocephalic and atraumatic, neck supple, normal palpation of chest wall without tenderness SKIN: warm and dry NEUROLOGIC: CN 2-12 grossly intact, no sensory deficit, normal cognition, normal speech, slight generalized tremulousness-improving, no gross focal deficits. PSYCHIATRIC: alert cooperative and oriented to person, place and time. Results & Data Results & Data ([facility]) Vital Signs (Past 12 Hours) Vital Signs Temp Pulse Resp BP Pulse Ox 01/21/21 12:22 36.8 C 61 19 176/75 H 97 01/21/21 07:44 36.6 C 69 19 144/72 H 94 Laboratory Results [facility] 01/20/21 20:46 Sodium 129 L Potassium 3.8 Chloride 98 Carbon Dioxide 22 BUN 63 H Creatinine 4.85 H* D Glucose 288 H Calcium 7.7 L Medications Administered Current Inpatient Medications Acetaminophen (Acetaminophen 325 Mg Tab) 650 mg PO Q4H PRN PRN Reason: Pain or Fever Stop: 02/17/21 15:48 Last Admin: 01/21/21 10:41 Dose: 650 mg Documented by: Amlodipine Besylate (Amlodipine Besylate 5 Mg Tab) 5 mg PO QAM PAULA Stop: 02/20/21 12:59 Last Admin: 01/21/21 14:34 Dose: 5 mg Documented by: Atorvastatin Calcium (Atorvastatin 40 Mg Tab) 40 mg PO PM PAULA Stop: 02/17/21 20:59 Last Admin: 01/20/21 19:58 Dose: 40 mg Documented by: Carvedilol (Carvedilol 6.25 Mg Tab) 6.25 mg PO BID PAULA Stop: 02/17/21 20:59 Last Admin: 01/21/21 07:57 Dose: 6.25 mg Documented by: Dextrose (Dextrose 50% 50 Ml Syringe) 25 - 50 ml IV UD PRN; Protocol PRN Reason: Hypoglycemia Protocol Stop: 02/18/21 06:15 Glucagon (Glucagon For Inj 1 Mg Vial) 1 mg SQ UD PRN; Protocol PRN Reason: Hypoglycemia Protocol Stop: 02/18/21 06:15 Glucose (Glucose 10 Tabs/Tube) 4 - 8 tabs PO UD PRN; Protocol PRN Reason: Hypoglycemia Protocol Stop: 02/18/21 06:15 Glucose (Glucose 40% Gel 15 Gm Tube) 15 - 30 gm PO UD PRN; Protocol PRN Reason: Hypoglycemia Protocol Stop: 02/18/21 06:15 Heparin Sodium (Porcine) (Heparin Sod 5,000 Unit/0.5 Ml Vial) 5,000 units SQ Q8 PAULA Stop: 02/17/21 21:59 Last Admin: 01/21/21 15:18 Dose: 5,000 units Documented by: Hydralazine HCl (Hydralazine Tab 50 Mg Tab) 50 mg PO TID PAULA Stop: 02/17/21 16:29 Last Admin: 01/21/21 14:34 Dose: 50 mg Documented by: Ceftriaxone Sodium 2,000 mg/ (Dextrose) 70 mls @ 100 mls/hr IV Q24H PAULA; Protocol Stop: 01/23/21 18:59 Last Infusion: 01/21/21 07:00 Dose: Infused Documented by: Insulin Aspart (Insulin Aspart 100 Units/Ml 3 Ml Pen) 0 units SC ACHS [facility] Stop: 02/18/21 06:19 Last Admin: 01/21/21 12:13 Dose: 9 units Documented by: Levothyroxine Sodium (Levothyroxine Sodium 100 Mcg Tablet) 100 mcg PO DAILYBB [facility] Stop: 02/18/21 06:29 Last Admin: 01/21/21 05:56 Dose: 100 mcg Documented by: Miscellaneous (Carbohydrates For Hypoglycemia ) 15 - 30 gm PO UD PRN PRN Reason: Hypoglycemia Protocol Stop: 02/18/21 06:15 Nystatin (Nystatin Powder 15gm Btl) 1 appln EXT BID PRN PRN Reason: abdominal fold irritation Stop: 02/17/21 16:45 Pantoprazole Sodium (Pantoprazole 40 Mg Tab) 40 mg PO QAM [facility] Stop: 02/18/21 08:59 Last Admin: 01/21/21 07:57 Dose: 40 mg Documented by: (1) HTN (hypertension) Hypertension type: unspecified Qualified Code(s): I10 - Essential (primary) hypertension
[2021-01-21] MEDS: ATORVASTATIN 40 MG TAB PO SCH (19:16)
[2021-01-21] MEDS: cefTRIAXone SODIUM 2,000 MG in DEXTROSE 5% 50 ML IV SCH (19:22)
[2021-01-22] MEDS: LEVOTHYROXINE SODIUM 100 MCG TABLET PO SCH (04:48)
[2021-01-22] MEDS: HEPARIN SOD 5,000 UNIT/0.5 ML VIAL SQ SCH ×3 (04:48→20:50)
[2021-01-22 06:56] LABS: BUN Creatinine Ratio 12.9 (10-20); Calcium 8.5 mg/dl (8.5-10.1); Creatinine Clr Calc Pharmacy 12.2 ml/min; Est GFR (African American) 7.8 ml/min; Est GFR (Non-African American) 6.7 ml/min; Potassium 4.2 mmol/L (3.5-5.1)
[2021-01-22] MEDS ORDERED: SODIUM CHLORIDE 0.9% 1000ML 1,000 ML IV PRN (08:05)
[2021-01-22] MEDS ORDERED: HEPARIN SOD (PORCINE) 1000 UNIT/ML IV ONE (08:05)
[2021-01-22] MEDS: INSULIN ASPART 100 UNITS/ML 3 ML PEN SC SCH ×4 (08:41→20:51)
[2021-01-22 09:46] LABS: Hepatitis B Surface Ab Quant < 3.10 mIU/mL (>or=10mIU/mL Immune); Hepatitis B Surface Antibody Non-Immune
[2021-01-22 09:56] LABS: Hepatitis B Surf Ag Rflx Conf Neg (Neg)
[2021-01-22] MEDS: PANTOprazole 40 MG TAB PO SCH ×2 (10:27→20:49)
[2021-01-22] MEDS: ACETAMINOPHEN 325 MG TAB PO PRN ×2 (10:27→20:53)
[2021-01-22] MEDS ORDERED: PHARMACY GLYCEMIC MGMT CONSULT PRN (11:07)
[2021-01-22] MEDS ORDERED: INSULIN GLARGINE SOLOSTAR 100 UNITS/ML 3 ML PEN SC ONE (11:30)
--- NOTE | 2021-01-22 11:32 | Hospitalist Progress Note ---
Date of Service January 22, 2021 Assessment & Plan (1) Acute kidney injury (LAMAR) with acute tubular necrosis (ATN): (2) CKD (chronic kidney disease), stage III: LAMAR on CKD3 Differential includes but not limited to dehydration (camping out in heat and sun over the weekend), intrinsic renal disease, drug reaction-recently started Ozempic. Questionable volume overload, electrolyte abnormalities and increasing uremia. [employer] on board Had first HD session 01/20 after temporary HD catheter in the neck. Planned for HD today Still early to determine if HD will be temporarily or not Still making urine Cont to hold gabapentin, bupropion, citalopram for now until renal functions improve (3) Hyponatremia: Sodium was 127 on admission Improved to 133 today Continue management per nephrology (4) Diabetes mellitus, type II: (5) Hypoglycemia: Was hypoglycemic on admission, now resolved. Likely due to poor p.o. intake in combination with continued insulin use -Hgb A1c 7.4 10/2020 Blood glucose has been in 200s now. Will optimize glycemic control with insulin protocol with pharm (6) Adverse effect of drug therapy: Possible adverse effect of insulin and oral hypoglycemic drugs, in the setting of Ozempic use and LAMAR. May have contributed to hypoglycemia and LAMAR seen on admission. (7) HTN (hypertension): BP mildly elevated at 150/70s this morning Continue carvedilol, hydralazine Amlodipine added by Nephro (8) Chronic diastolic CHF (congestive heart failure): Contiue to hold Lasix due to LAMAR (9) MINISTERIO on CPAP: CPAP as per home settings (10) Hypothyroidism: Chronic, stable Cont home levothyroxine (11) Chronic pain: Takes gabapentin which has been on hold since admission due to renal function (12) DVT prophylaxis: Heparin Full Code Dispo-cont telemetry montioring. Admission and Anticipated Discharge Date Admission Date: January 18, 2021 Subjective 60-year-old female with PMH DM type II, CKD stage III, hypothyroidism, MINISTERIO on C PAP, chronic diastolic CHF, SSS s/p pacemaker, HTN, history of endometrial cancer s/p hysterectomy who presented the ED for evaluation of generalized weakness and jerking of extremities Being managed for LAMAR on CKD 3 now on HD patient seen and examined this morning. Reports Reports some mild frontal headache, not referred, not associated with dizziness Reports generalized weakness. Jerking of extremities/tremulousness have resolved so far Denies any other complaints Review of Systems Review of Systems: All systems reviewed & are unremarkable except as noted in Subjective Physical Exam Constitutional: + well hydrated and + obese; no acute distress Eyes: PERRL, conjunctivae normal, anicteric sclerae ENMT: external ear and nose normal, oropharynx normal Respiratory: normal respiratory effort, lungs clear to auscultation Cardiovascular: Rate/Rhythm: regular rate and regular rhythm S1-S2 Gastrointestinal (Abdomen): normal bowel sounds, soft, nontender, no hepatosplenomegaly Musculoskeletal: no cyanosis or clubbing, extremities motor strength 5/5 Trace pedal edema Neurologic: PERRL, EOMI, accommodation nl, no face palsy, no dysarthria No tremors Psychiatric: A+Ox3, euthymic affect Genitourinary: no CVA tenderness Results & Data Results & Data ([facility]) Vital Signs (Past 12 Hours) Vital Signs Temp Pulse Pulse Resp BP Pulse Ox 01/22/21 08:24 36.7 C 70 20 151/76 H 97 01/22/21 07:16 69 01/22/21 04:13 36.6 C 64 18 152/78 H 97 01/21/21 23:55 36.6 C 72 18 158/67 H 98 Laboratory Results Abnormal lab results 01/20/21 01/21/21 01/21/21 Range/Units 11:52 16:03 19:12 Sodium (136-145) mmol/L BUN (7-18) mg/dl Creatinine (0.6-1.2) mg/dl Glucose (70-99) mg/dl POC Glucose 204 H 217 H (70-99) mg/dl Hep Bs Antibody, Quant < 3.10 L (>or=10mIU/mL Immune) mIU/mL 01/22/21 01/22/21 01/22/21 Range/Units 05:50 07: 11:03 Sodium 133 L (136-145) mmol/L BUN 79 H (7-18) mg/dl Creatinine 6.15 H* D (0.6-1.2) mg/dl Glucose 212 H (70-99) mg/dl POC Glucose 219 H 269 H (70-99) mg/dl Hep Bs Antibody, Quant (>or=10mIU/mL Immune) mIU/mL (1) HTN (hypertension) Hypertension type: unspecified Qualified Code(s): I10 - Essential (primary) hypertension
--- NOTE | 2021-01-22 11:45 | Pharmacy Report ---
Pharmacy Glycemic Short Note 2 - Date of Service January 22, 2021 - Glycemic Short BSG Results (Last 24 hours): 01/21/21 01/21/21 01/22/21 16:03 19:12 05:50 Glucose 212 H POC Glucose 204 H 217 H 01/22/21 01/22/21 07:21 11:03 Glucose POC Glucose 219 H 269 H OUTPATIENT ANTIDIABETIC REGIMEN: * Lantus 23 units Qam, Humalog CR 1:4 + SSI, Ozempic * A1c 7.4% 01/20/21 ASSESSMENT: * Patient admitted with significant LAMAR on admission. Started on hemodialysis with first session 01/20. Patient with hx of type 2 diabetes. Hypoglycemic on admission, therefore basal insulin held. BSGs relatively controlled with just SSI, however now starting to trend up in the 200s * Patient received total of 26 units of SSI yesterday and BSGs still in 200s during the day. Plan to start low dose Lantus today with 15 units x 1 (half of insulin needs yesterday) * Patient scheduled for another dialysis session today. Will tighten CR slightly, continue same CF for now PLAN FOR INPATIENT GLYCEMIC CONTROL: * Hold outpatient oral diabetes medications * Basal insulin * Lantus 15 units x 1 * Bolus insulin * NovoLog per scale ACHS or Q6hrs while NPO * Goal Range: Low 110 mg/dL - High 140 mg/dL * Correction Factor: 25 mg/dL/unit * Nutritional / Prandial insulin per carb ratio of 1 unit per 12 grams CHO consumed PLAN FOR DISCHARGE: * Patient likely needing insulin adjustments on discharge as now starting Hemodialysis. Anticipate insulin needs to be less * Will continue to follow to determine insulin needs
--- NOTE | 2021-01-22 13:47 | Nephrology Progress Note ---
Date of Service January 22, 2021 Assessment & Plan (1) Acute kidney injury superimposed on CKD: nonoliguric LAMAR on CKD 3. intake UA c/w UTI and cx w/ sandar Se E coli > on ceftriaxone. no obstruction on imaging. doubt glomerular process based on UA, clinical presentation. no concern for nephrotic syndrome. minimal improvement with fluid resusciation; ATN. ozempic has been a/w worsening renal function in pts w/ volume depletion > may be at work here. volume status in obese pt actually challenging to assess. CK wnl; ESR mid 60s, far less concerning for GN in this range. 900 mg proteinuria but in setting of infected urine of unclear significance. Baseline creatinine 1.6-1.8. -daily bmp -cont strict I/O >>w/ worsening BUN, acid base balance, creatinine, phos despite supportive care >> moved ahead w/ trial of dialysis starting 01/20 for clearance primarily; consent on chart; ICU assistance w/ line placement appreciated; no UF on first 01/20 x 2.5 hr on small dialyzer; -temp cath placed by [facility] 01/20; first HD same day > For her second hemodialysis treatment today on a regular size dialyzer 3 hours with up to 1/2 L UF; again primarily for clearance -cont to hold lasix, ozempic, IVF >w/ dialysis, monitor for withdrawal from gabapentin >>> May take a few days yet to determine whether or not this patient will need a tunnelled dialysis catheter and/or outpatient dialysis; I do not believe she will be ESRD (2) Myoclonic jerking: longstanding issue x mos [employer] exacerbated prior to arrival and ongoing ?relation to accumulation of gabapentin w/ renal failure on her customary high OP doses; could also in theory relate to nutritional deficiency from gastric bypass> defer to primary to eval this; improving (3) Hyponatremia: 127 on presentation. suspected hypovolemic hyponatremia but no response with this approach. challenging situation and w/ interference from uremia -FR liberalized to 1.5L/ day -up to 133 today w/ 0.6 L negative; cont to follow (4) HTN (hypertension): some elevation and would expect this w/ held meds, anxiety. sbp 120-160s w/o sx > observe; no ivf running now -cont coreg, hydralazine; trial of amlodipine started -off IVF Admission and Anticipated Discharge Date Admission Date: January 18, 2021 Subjective Feeling well: Fewer myoclonic jerks, ambulated Tory without assist, rating p.o., no shortness of breath, denies dysuria or decreased urine output. Tolerating p.o. without nausea. No confusion. Endorses mild bilateral ankle and wrist edema. No voiding symptoms. States she has been told she has another UTI. Review of Systems Review of Systems: All systems reviewed & are unremarkable except as noted in Subjective Physical Exam Constitutional: well developed, well nourished, + obese and cooperative; no acute distress Eyes: EOM intact bilaterally ENMT: Ears: no external ear abnormality Nose: no external nose abnormality Mouth: + dry oral mucous membranes Neck: no nuchal rigidity Respiratory: normal respiratory effort Auscultation: lungs clear to auscultation bilaterally, + diminished lung sounds and + crackles (fine BL base end insp crackles on RA) Cardiovascular: Rate/Rhythm: regular rate and regular rhythm Heart Sounds: + murmur Extremities: + edema (At most trace bilateral ankle) Gastrointestinal (Abdomen): Inspection/Auscultation: + abdomen distended (slight ) and normal bowel sounds Percussion/Palpation: abdomen soft; abdomen nontender and no guarding Musculoskeletal: Extremities: + abnormal strength (generalized weakness) Skin: no rashes, warm and dry + pallor Neurologic: awake Motor/Sensory: + abnormal movement (+ myoclonic jerks) Psychiatric: A+Ox3, euthymic affect Genitourinary: No [place] Results & Data ([facility]) Vital Signs (Past 12 Hours) Vital Signs Temp Pulse Pulse Resp BP Pulse Ox 01/22/21 12:27 36.7 C 65 20 154/82 H 95 01/22/21 08:24 36.7 C 70 20 151/76 H 97 01/22/21 07:16 69 01/22/21 04:13 36.6 C 64 18 152/78 H 97 Laboratory Results 01/19/21 09:35 01/22/21 05:50 E. coli on January 18 urine culture (1) HTN (hypertension) Hypertension type: unspecified Qualified Code(s): I10 - Essential (primary) hypertension
[2021-01-22] MEDS: amLODIPine BESYLATE 5 MG TAB PO SCH (16:34)
[2021-01-22] MEDS: carvediloL 6.25 MG TAB PO SCH ×2 (16:35→20:48)
[2021-01-22] MEDS: HEPARIN SOD (PORCINE) 1000 UNIT/ML IV SCH ×3 (17:55→17:57)
[2021-01-22] MEDS: hydrALAZINE TAB 50 MG TAB PO SCH ×3 (17:55→20:50)
[2021-01-22] MEDS: ATORVASTATIN 40 MG TAB PO SCH (20:48)
[2021-01-22] MEDS: cefTRIAXone SODIUM 2,000 MG in DEXTROSE 5% 50 ML IV SCH (20:55)
[2021-01-23] MEDS: LEVOTHYROXINE SODIUM 100 MCG TABLET PO SCH (04:46)
[2021-01-23] MEDS: HEPARIN SOD 5,000 UNIT/0.5 ML VIAL SQ SCH ×3 (04:46→21:06)
[2021-01-23 07:23] LABS: BUN Creatinine Ratio 10.5 (10-20); Calcium 8.8 mg/dl (8.5-10.1); Creatinine Clr Calc Pharmacy 18.3 ml/min; Est GFR (African American) 12.9 ml/min; Est GFR (Non-African American) 11.2 ml/min; Magnesium 2.1 mg/dl (1.8-2.4); Phosphorus 5.2 mg/dl (2.5-4.9); Potassium 3.9 mmol/L (3.5-5.1)
[2021-01-23] MEDS: INSULIN ASPART 100 UNITS/ML 3 ML PEN SC SCH ×4 (08:24→20:33)
[2021-01-23] MEDS: carvediloL 6.25 MG TAB PO SCH ×2 (08:25→21:05)
[2021-01-23] MEDS: amLODIPine BESYLATE 5 MG TAB PO SCH (08:25)
[2021-01-23] MEDS: hydrALAZINE TAB 50 MG TAB PO SCH (08:25)
[2021-01-23] MEDS ORDERED: INSULIN GLARGINE SOLOSTAR 100 UNITS/ML 3 ML PEN SC SCH (09:00)
--- NOTE | 2021-01-23 10:00 | Nephrology Progress Note ---
Date of Service January 23, 2021 Assessment & Plan (1) Acute kidney injury superimposed on CKD: nonoliguric LAMAR on CKD 3: ATN. intake UA c/w UTI and cx w/ sandra Se E coli > on ceftriaxone. no obstruction on imaging. doubt glomerular process based on UA, clinical presentation. no concern for nephrotic syndrome. ozempic has been a/w worsening renal function in pts w/ volume depletion > may be at work here. volume status in obese pt actually challenging to assess. CK wnl; ESR mid 60s, far less concerning for GN in this range. 900 mg proteinuria but in setting of infected urine of unclear significance. Baseline creatinine 1.6-1.8. -daily bmp -cont strict I/O >>w/ worsening BUN, acid base balance, creatinine, phos despite supportive care >> moved ahead w/ trial of dialysis starting 01/20 for clearance primarily; consent on chart; ICU assistance w/ line placement appreciated; no UF on first 01/20 x 2.5 hr on small dialyzer; second HD 01/22 w/ 500 mL UF -temp cath placed by [facility] [place] [facility] 01/20; first HD same day > observe for today -- and hopefully for rest -cont to hold lasix, ozempic, IVF >w/ dialysis, monitor for withdrawal from gabapentin -her UOP is brisk; chemistries acceptable; some mild edema but otherwise few sx to date >>> again, will take several days yet to determine whether or not this patient will need a tunnelled dialysis catheter and/or outpatient dialysis; I do not believe she will be ESRD; she would be adherent with therapy >> may be best to get her to rehab soon; d/c catheter tomorrow if labs look ok and send to IP rehab; follow her labs/wts/I-O there; may yet need tunnelled dialysis catheter as OP/further dialysis but she could looking into whether she could be admitted to OP dialysis w/ LAMAR based on her insurance if need arise; if so, may be able to be d/c w/ very close OP f/u. 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 suspected hypovolemic hyponatremia but no response with this approach. challenging situation and w/ interference from uremia -cont FR 1.5L/ day (4) HTN (hypertension): some elevation and would expect this w/ held meds, anxiety. sbp 120-160s w/o sx > observe; no ivf running now -cont coreg, hydralazine; trial of amlodipine started > increased amlodipine to 10 mg daily, increased hydralazine to 75 mg tid -off IVF Admission and Anticipated Discharge Date Admission Date: January 18, 2021 Subjective improving edema; no voiding concerns; no sob; PT recommends IP rehab 500 mL UF at HD yesterday >> holding back on UF to support recovery. today is first standing wt > 119.2. ongoing htn Review of Systems Review of Systems: All systems reviewed & are unremarkable except as noted in Subjective Physical Exam Constitutional: well developed, well nourished, + obese and cooperative; no acute distress Eyes: EOM intact bilaterally ENMT: Ears: no external ear abnormality Nose: no external nose abnormality Mouth: + dry oral mucous membranes Neck: no nuchal rigidity Respiratory: normal respiratory effort Auscultation: lungs clear to auscultation bilaterally and + diminished lung sounds Cardiovascular: Rate/Rhythm: regular rate and regular rhythm Heart Sounds: + murmur Extremities: + edema (At most trace bilateral ankle) Gastrointestinal (Abdomen): Inspection/Auscultation: + abdomen distended (slight ) and normal bowel sounds Percussion/Palpation: abdomen soft; abdomen nontender and no guarding Musculoskeletal: Extremities: + abnormal strength (generalized weakness) Skin: no rashes, warm and dry + pallor Neurologic: awake Motor/Sensory: + abnormal movement (+ myoclonic jerks) Psychiatric: A+Ox3, euthymic affect Results & Data ([facility]) Vital Signs (Past 12 Hours) Vital Signs Temp Pulse Resp BP Pulse Ox 01/23/21 07:42 36.4 C L 64 20 159/79 H 97 01/23/21 04:38 36.6 C 71 20 157/76 H 99 01/22/21 23:16 36.8 C 68 20 145/63 H 98 Laboratory Results 01/19/21 09:35 01/23/21 06:28 (1) HTN (hypertension) Hypertension type: unspecified Qualified Code(s): I10 - Essential (primary) hypertension
[2021-01-23] MEDS ORDERED: amLODIPine BESYLATE 5 MG TAB PO ONE (11:00)
[2021-01-23] MEDS ORDERED: hydrALAZINE HCL 25 MG TAB PO ONE (11:00)
--- NOTE | 2021-01-23 12:30 | Hospitalist Progress Note ---
Date of Service January 23, 2021 Assessment & Plan (1) Acute kidney injury (LAMAR) with acute tubular necrosis (ATN): (2) CKD (chronic kidney disease), stage III: LAMAR on CKD3 Differential includes but not limited to dehydration (camping out in heat and sun over the weekend), intrinsic renal disease, drug reaction-recently started Ozempic. Questionable volume overload, electrolyte abnormalities and increasing uremia. Roll Setter on board Had first HD session 01/20 after temporary HD catheter in the neck. Had another session on 01/22/21 Discussed with distribution superintendent Still early to determine if HD will be temporarily or not Still making urine Will monitor labs and follow up distribution superintendent recommendations Cont to hold gabapentin, bupropion, citalopram for now until renal functions improve (3) Hyponatremia: sodium improved with hemodialysis. Cont fluid restriction per nephro (4) Diabetes mellitus, type II: (5) Hypoglycemia: Was hypoglycemic on admission, now resolved. Likely due to poor p.o. intake in combination with continued insulin use -Hgb A1c 7.4 10/2020 Pharm on board helping with glycemic management (6) Adverse effect of drug therapy: Possible adverse effect of insulin and oral hypoglycemic drugs, in the setting of Ozempic use and LAMAR. May have contributed to hypoglycemia and LAMAR seen on admission. (7) HTN (hypertension): BP elevated Continue carvedilol, hydralazine Continue Amlodipine added by Nephro (8) Chronic diastolic CHF (congestive heart failure): Contiue to hold Lasix due to LAMAR (9) MINISTERIO on CPAP: CPAP as per home settings (10) Hypothyroidism: Chronic, stable Cont home levothyroxine (11) Chronic pain: Takes gabapentin which has been on hold since admission due to renal function (12) DVT prophylaxis: Heparin Full Code Dispo-cont telemetry montioring. UTI Urine culture grew E.coli Completing antibiotics today Admission and Anticipated Discharge Date Admission Date: January 18, 2021 Subjective 60-year-old female with PMH DM type II, CKD stage III, hypothyroidism, MINISTERIO on CPAP, chronic diastolic CHF, SSS s/p pacemaker, HTN, history of endometrial cancer s/p hysterectomy who presented the ED for evaluation of generalized weakness and jerking of extremities Being managed for LAMAR on CKD 3 now on HD Patient seen and examined this morning. Reports headache has resolved. Still reports generalized weakness. Jerking of extremities and tremulousness is also completely resolved. Reports return of mild paresthesia in feet today Review of Systems Review of Systems: All systems reviewed & are unremarkable except as noted in Subjective Physical Exam Constitutional: + well hydrated and + obese; no acute distress Eyes: PERRL, conjunctivae normal, anicteric sclerae ENMT: external ear and nose normal, oropharynx normal Respiratory: normal respiratory effort, lungs clear to auscultation Cardiovascular: Rate/Rhythm: regular rate and regular rhythm S1-S2 Gastrointestinal (Abdomen): normal bowel sounds, soft, nontender, no hepatosplenomegaly Musculoskeletal: no cyanosis or clubbing, extremities motor strength 5/5 Trace pedal edema Neurologic: PERRL, EOMI, accommodation nl, no face palsy, no dysarthria Psychiatric: A+Ox3, euthymic affect Genitourinary: no CVA tenderness Results & Data Results & Data ([facility]) Vital Signs (Past 12 Hours) Vital Signs Temp Pulse Resp BP Pulse Ox 01/23/21 12:02 36.7 C 69 17 167/80 H 97 01/23/21 07:42 36.4 C L 64 20 159/79 H 97 01/23/21 04:38 36.6 C 71 20 157/76 H 99 Laboratory Results Abnormal lab results 01/22/21 01/22/21 01/22/21 Range/Units 17:52 20:27 20:28 Chloride (98-107) mmol/L BUN (7-18) mg/dl Creatinine (0.6-1.2) mg/dl Glucose (70-99) mg/dl POC Glucose 118 H 372 H* 359 H* (70-99) mg/dl Phosphorus (2.5-4.9) mg/dl 01/22/21 01/23/21 01/23/21 Range/Units 20:35 03:57 06:28 Chloride 108 H (98-107) mmol/L BUN 42 H (7-18) mg/dl Creatinine 4.04 H D (0.6-1.2) mg/dl Glucose 184 H (70-99) mg/dl POC Glucose 355 H* 188 H (70-99) mg/dl Phosphorus 5.2 H (2.5-4.9) mg/dl 01/23/21 01/23/21 Range/Units 07:17 11:23 Chloride (98-107) mmol/L BUN (7-18) mg/dl Creatinine (0.6-1.2) mg/dl Glucose (70-99) mg/dl POC Glucose 186 H 267 H (70-99) mg/dl Phosphorus (2.5-4.9) mg/dl (1) HTN (hypertension) Hypertension type: unspecified Qualified Code(s): I10 - Essential (primary) hypertension
[2021-01-23] MEDS: hydrALAZINE HCL 25 MG TAB PO SCH ×2 (13:33→21:05)
--- NOTE | 2021-01-23 13:57 | Pharmacy Report ---
Pharmacy Glycemic Short Note 2 - Date of Service January 23, 2021 - Glycemic Short BSG Results (Last 24 hours): 01/22/21 01/22/21 01/22/21 17:52 20:27 20:28 Glucose POC Glucose 118 H 372 H* 359 H* 01/22/21 01/23/21 01/23/21 20:35 03:57 06:28 Glucose 184 H POC Glucose 355 H* 188 H 01/23/21 01/23/21 07:17 11:23 Glucose POC Glucose 186 H 267 H OUTPATIENT ANTIDIABETIC REGIMEN: * Lantus 23 units Qam, Humalog CR 1:4 + SSI, Ozempic * A1c 7.4% 01/20/21 ASSESSMENT: 01/23 * Patient received total of 38 units of insulin yesterday, BSGs fluctuating 269-118-359 * Fasting BSG 184 mg/dL - plan to increase to 20 units basal this AM * Continue same CF/CR for now, BSGs labile - don't want to make too many changes 01/22 * Patient admitted with significant LAMAR on admission. Started on hemodialysis with first session 01/20. Patient with hx of type 2 diabetes. Hypoglycemic on admission, therefore basal insulin held. BSGs relatively controlled with just SSI, however now starting to trend up in the 200s * Patient received total of 26 units of SSI yesterday and BSGs still in 200s during the day. Plan to start low dose Lantus today with 15 units x 1 (half of insulin needs yesterday) * Patient scheduled for another dialysis session today. Will tighten CR slightly, continue same CF for now PLAN FOR INPATIENT GLYCEMIC CONTROL: * Hold outpatient oral diabetes medications * Basal insulin - increase * Lantus 20 units daily * Bolus insulin * NovoLog per scale ACHS or Q6hrs while NPO * Goal Range: Low 110 mg/dL - High 140 mg/dL * Correction Factor: 25 mg/dL/unit * Nutritional / Prandial insulin per carb ratio of 1 unit per 12 grams CHO consumed PLAN FOR DISCHARGE: * Patient likely needing insulin adjustments on discharge as now starting Hemodialysis. Anticipate insulin needs to be less * Will continue to follow to determine insulin needs
[2021-01-23] MEDS: ATORVASTATIN 40 MG TAB PO SCH (21:05)
[2021-01-24] MEDS: ACETAMINOPHEN 325 MG TAB PO PRN ×2 (03:46→14:24)
[2021-01-24] MEDS ORDERED: MICONAZOLE NITRATE POWDER 43 GM EXT PRN (04:06)
[2021-01-24] MEDS: HEPARIN SOD 5,000 UNIT/0.5 ML VIAL SQ SCH ×3 (06:07→21:15)
[2021-01-24] MEDS: LEVOTHYROXINE SODIUM 100 MCG TABLET PO SCH (06:38)
[2021-01-24] MEDS: PANTOprazole 40 MG TAB PO SCH (08:11)
[2021-01-24] MEDS: INSULIN ASPART 100 UNITS/ML 3 ML PEN SC SCH ×4 (08:13→21:16)
[2021-01-24] MEDS: amLODIPine BESYLATE 5 MG TAB PO SCH (08:55)
[2021-01-24] MEDS: hydrALAZINE HCL 25 MG TAB PO SCH ×3 (08:56→21:15)
[2021-01-24] MEDS: carvediloL 6.25 MG TAB PO SCH ×2 (08:56→21:14)
[2021-01-24] MEDS ORDERED: INSULIN GLARGINE SOLOSTAR 100 UNITS/ML 3 ML PEN SC SCH (09:00)
[2021-01-24 09:51] LABS: BUN Creatinine Ratio 10.2 (10-20); Calcium 9.2 mg/dl (8.5-10.1); Creatinine Clr Calc Pharmacy 15.3 ml/min; Est GFR (African American) 10.4 ml/min; Potassium 4.1 mmol/L (3.5-5.1)
--- NOTE | 2021-01-24 10:18 | Hospitalist Progress Note ---
Date of Service January 24, 2021 Assessment & Plan (1) Acute kidney injury (LAMAR) with acute tubular necrosis (ATN): (2) CKD (chronic kidney disease), stage III: LAMAR on CKD3 Differential includes but not limited to dehydration (camping out in heat and sun over the weekend), intrinsic renal disease, drug reaction-recently started Ozempic. Questionable volume overload, electrolyte abnormalities and increasing uremia. Wellness Trainer on board Had first HD session 01/20 after temporary HD catheter in the neck. Had another session on 01/22/21 Creatinine is 4.84 today. BUN is 51 to 2 L 24. Still early to determine if HD will be temporarily or not Still making urine Will will continue to monitor labs and follow up cat operator recommendations Cont to hold gabapentin, bupropion, citalopram for now until renal functions improve (3) Hyponatremia: sodium improved with hemodialysis. Cont fluid restriction per nephro (4) Diabetes mellitus, type II: (5) Hypoglycemia: Was hypoglycemic on admission, now resolved. Likely due to poor p.o. intake in combination with continued insulin use -Hgb A1c 7.4 10/2020 Poor glycemic control Pharm on board helping with glycemic management Lantus 25 units daily this morning (6) Adverse effect of drug therapy: Possible adverse effect of insulin and oral hypoglycemic drugs, in the setting of Ozempic use and LAMAR. May have contributed to hypoglycemia and LAMAR seen on admission. (7) HTN (hypertension): BP elevated Continue carvedilol, hydralazine Continue Amlodipine now increased to 10 mg daily added by Nephro (8) Chronic diastolic CHF (congestive heart failure): Contiue to hold Lasix due to LAMAR (9) MINISTERIO on CPAP: CPAP as per home settings (10) Hypothyroidism: Chronic, stable Cont home levothyroxine (11) Chronic pain: Takes gabapentin which has been on hold since admission due to renal function (12) DVT prophylaxis: Heparin Full Code Dispo-cont telemetry montioring. UTI Urine culture grew E.coli Completed antibiotics Admission and Anticipated Discharge Date Admission Date: January 18, 2021 Subjective 60-year-old female with PMH DM type II, CKD stage III, hypothyroidism, MINISTERIO on CPAP, chronic diastolic CHF, SSS s/p pacemaker, HTN, history of endometrial cancer s/p hysterectomy who presented the ED for evaluation of generalized weakness and jerking of extremities Being managed for LAMAR on CKD 3 now on HD Patient seen and examined this morning. Reports generalized weakness is improving with physical therapy. Denies any other complaints Review of Systems Review of Systems: All systems reviewed & are unremarkable except as noted in Subjective Physical Exam Constitutional: + well hydrated and + obese; no acute distress Eyes: PERRL, conjunctivae normal, anicteric sclerae ENMT: external ear and nose normal, oropharynx normal Respiratory: normal respiratory effort, lungs clear to auscultation Cardiovascular: Rate/Rhythm: regular rate and regular rhythm S1-S2 Gastrointestinal (Abdomen): normal bowel sounds, soft, nontender, no hepatosplenomegaly Musculoskeletal: no cyanosis or clubbing, extremities motor strength 5/5 +1 pedal edema Neurologic: PERRL, EOMI, accommodation nl, no face palsy, no dysarthria Psychiatric: A+Ox3, euthymic affect Genitourinary: no CVA tenderness Results & Data Results & Data ([facility]) Vital Signs (Past 12 Hours) Vital Signs Temp Pulse Pulse Resp BP BP Pulse Ox 01/24/21 09:26 71 01/24/21 07:44 36.8 C 93 H 16 173/73 H 92 01/24/21 03:24 37 C 68 18 119/67 93 01/24/21 01:10 70 01/23/21 23:05 36.7 C 64 18 149/70 H 96 Laboratory Results Abnormal lab results 01/23/21 01/23/21 01/23/21 Range/Units 11:23 16:27 20:15 Sodium (136-145) mmol/L BUN (7-18) mg/dl Creatinine (0.6-1.2) mg/dl Glucose (70-99) mg/dl POC Glucose 267 H 236 H 345 H* (70-99) mg/dl 01/23/21 01/24/21 01/24/21 Range/Units 20:18 07:34 08:22 Sodium 135 L (136-145) mmol/L BUN 51 H (7-18) mg/dl Creatinine 4.84 H* D (0.6-1.2) mg/dl Glucose 274 H (70-99) mg/dl POC Glucose 362 H* 218 H (70-99) mg/dl (1) HTN (hypertension) Hypertension type: unspecified Qualified Code(s): I10 - Essential (primary) hypertension
--- NOTE | 2021-01-24 10:47 | Nephrology Progress Note ---
Date of Service January 24, 2021 Assessment & Plan (1) Acute kidney injury superimposed on CKD: nonoliguric LAMAR on CKD 3: ATN. intake UA c/w UTI and cx w/ sandra Se E coli > on ceftriaxone. no obstruction on imaging. doubt glomerular process based on UA, clinical presentation. no concern for nephrotic syndrome. ozempic has been a/w worsening renal function in pts w/ volume depletion > may be at work here. volume status in obese pt actually challenging to assess. CK wnl; ESR mid 60s, far less concerning for GN in this range. 900 mg proteinuria but in setting of infected urine of unclear significance. Baseline creatinine 1.6-1.8. -daily bmp -cont strict I/O >>w/ worsening BUN, acid base balance, creatinine, phos despite supportive care >> moved ahead w/ trial of dialysis starting 01/20 for clearance primarily; consent on chart; ICU assistance w/ line placement appreciated; no UF on first 01/20 x 2.5 hr on small dialyzer; second HD 01/22 w/ 500 mL UF -temp cath placed by [facility] [place] 01/20; first HD same day > >>>again, observe for today -- and hopefully for rest of the week -cont to hold lasix, ozempic, IVF >w/ dialysis, monitor for withdrawal from gabapentin -her UOP is brisk; chemistries acceptable; some mild edema but otherwise few sx to date >>> again, will take several days yet to determine whether or not this patient will need a tunnelled dialysis catheter and/or outpatient dialysis; I do not believe she will be ESRD; she would be adherent with therapy >> may be best to get her to rehab soon; d/c catheter tomorrow if labs look ok and send to IP rehab; follow her labs/wts/I-O there; may yet need tunnelled dialysis catheter as OP/further dialysis but she could looking into whether she could be admitted to OP dialysis w/ LAMAR based on her insurance if need arise; if so, may be able to be d/c w/ very close OP f/u. Care coordinated w/ Dr Blair (2) Hyponatremia: resolved and corrected appropriately -- very labile serum sodium ? relation to changes in fluid status.; suspect SIADH 127 on presentation. suspected hypovolemic hyponatremia but no response with this approach. challenging situation and w/ interference from uremia -cont FR 1.5L/ day (3) HTN (hypertension): some elevation and would expect this w/ held meds, anxiety. sbp 120-160s w/o sx > observe; no ivf running now -cont coreg, hydralazine; trial of amlodipine started > increased amlodipine to 10 mg daily, increased hydralazine to 75 mg tid 01/23 -off IVF -activity as tolerated Admission and Anticipated Discharge Date Admission Date: January 18, 2021 Subjective no interval events. some urinary urgency; no dysuria; no const sx; some increasing edema Review of Systems Review of Systems: All systems reviewed & are unremarkable except as noted in Subjective Physical Exam Constitutional: well developed, well nourished, + obese and cooperative; no acute distress Eyes: EOM intact bilaterally ENMT: Ears: no external ear abnormality Nose: no external nose abnormality Mouth: + dry oral mucous membranes Neck: no nuchal rigidity Respiratory: normal respiratory effort Auscultation: lungs clear to auscultation bilaterally and + diminished lung sounds Cardiovascular: Rate/Rhythm: regular rate and regular rhythm Heart Sounds: + murmur Extremities: + edema (trace-1+ BL ankle edema) Gastrointestinal (Abdomen): Inspection/Auscultation: + abdomen distended (slight ) and normal bowel sounds Percussion/Palpation: abdomen soft; abdomen nontender and no guarding Musculoskeletal: Extremities: + abnormal strength (generalized weakness) Skin: no rashes, warm and dry + pallor Neurologic: awake Motor/Sensory: + abnormal movement (+ myoclonic jerks) Psychiatric: A+Ox3, euthymic affect Results & Data ([facility]) Vital Signs (Past 12 Hours) Vital Signs Temp Pulse Pulse Resp BP BP Pulse Ox 01/24/21 09:26 71 01/24/21 07:44 36.8 C 93 H 16 173/73 H 92 01/24/21 03:24 37 C 68 18 119/67 93 01/24/21 01:10 70 01/23/21 23:05 36.7 C 64 18 149/70 H 96 Laboratory Results 01/19/21 09:35 01/24/21 08:22 (1) HTN (hypertension) Hypertension type: unspecified Qualified Code(s): I10 - Essential (primary) hypertension
--- NOTE | 2021-01-24 12:24 | Pharmacy Report ---
Pharmacy Glycemic Short Note 2 - Date of Service January 24, 2021 - Glycemic Short BSG Results (Last 24 hours): 01/23/21 01/23/21 01/23/21 16:27 20:15 20:18 Glucose POC Glucose 236 H 345 H* 362 H* 01/24/21 01/24/21 01/24/21 07:34 08:22 11:20 Glucose 274 H POC Glucose 218 H 226 H OUTPATIENT ANTIDIABETIC REGIMEN: * Lantus 23 units Qam, Humalog CR 1:4 + SSI, Ozempic * A1c 7.4% 01/20/21 ASSESSMENT: 01/24 * Patient received total of 49 units of insulin yesterday, BSGs above goal 184- 354mg/dl * Fasting BSG 218 mg/dL - increase basal again * Tighten CF/CR 01/23 * Patient received total of 38 units of insulin yesterday, BSGs fluctuating 269-118-359 * Fasting BSG 184 mg/dL - plan to increase to 20 units basal this AM * Continue same CF/CR for now, BSGs labile - don't want to make too many changes 01/22 * Patient admitted with significant LAMAR on admission. Started on hemodialysis with first session 01/20. Patient with hx of type 2 diabetes. Hypoglycemic on admission, therefore basal insulin held. BSGs relatively controlled with just SSI, however now starting to trend up in the 200s * Patient received total of 26 units of SSI yesterday and BSGs still in 200s during the day. Plan to start low dose Lantus today with 15 units x 1 (half of insulin needs yesterday) * Patient scheduled for another dialysis session today. Will tighten CR slightly, continue same CF for now PLAN FOR INPATIENT GLYCEMIC CONTROL: * Hold outpatient Ozempic SQ * Basal insulin - increase * Lantus 25 units daily * Bolus insulin -tighten CF/CR * NovoLog per scale ACHS or Q6hrs while NPO * Goal Range: Low 110 mg/dL - High 140 mg/dL * Correction Factor: 20 mg/dL/unit * Nutritional / Prandial insulin per carb ratio of 1 unit per 6 grams CHO consumed PLAN FOR DISCHARGE: * Patient likely needing insulin adjustments on discharge as now starting Hemodialysis. Anticipate insulin needs to be less * Will continue to follow to determine insulin needs
[2021-01-24] MEDS: ATORVASTATIN 40 MG TAB PO SCH (21:14)
[2021-01-25] MEDS: HEPARIN SOD 5,000 UNIT/0.5 ML VIAL SQ SCH ×3 (06:28→21:24)
[2021-01-25] MEDS: LEVOTHYROXINE SODIUM 100 MCG TABLET PO SCH (06:28)
[2021-01-25] MEDS: amLODIPine BESYLATE 5 MG TAB PO SCH (08:17)
[2021-01-25] MEDS: carvediloL 6.25 MG TAB PO SCH (08:17)
[2021-01-25] MEDS: PANTOprazole 40 MG TAB PO SCH (08:18)
[2021-01-25] MEDS: hydrALAZINE HCL 25 MG TAB PO SCH ×3 (08:18→20:14)
[2021-01-25] MEDS: INSULIN GLARGINE SOLOSTAR 100 UNITS/ML 3 ML PEN SC SCH (08:21)
[2021-01-25] MEDS: INSULIN ASPART 100 UNITS/ML 3 ML PEN SC SCH ×4 (08:21→20:15)
[2021-01-25 08:40] LABS: BUN Creatinine Ratio 9.7 (10-20); Creatinine Clr Calc Pharmacy 14.3 ml/min; Est GFR (African American) 9.5 ml/min; Est GFR (Non-African American) 8.2 ml/min; Potassium 4.1 mmol/L (3.5-5.1)
--- NOTE | 2021-01-25 10:22 | Hospitalist Progress Note ---
Date of Service January 25, 2021 Assessment & Plan (1) Acute kidney injury (LAMAR) with acute tubular necrosis (ATN): (2) CKD (chronic kidney disease), stage III: LAMAR on CKD3 Differential includes but not limited to dehydration (camping out in heat and sun over the weekend), intrinsic renal disease, drug reaction-recently started Ozempic. Questionable volume overload, electrolyte abnormalities and increasing uremia. Insole Reinforcer on board Had first HD session 01/20 after temporary HD catheter in the neck. Had another session on 01/22/21 Creatinine is 5.21 today. BUN is 51, CO2 26. Still making urine Will will continue to monitor labs and follow up medical records coordinator recommendations Cont to hold gabapentin, bupropion, citalopram for now until renal functions improve (3) Hyponatremia: Resolved. Cont fluid restriction per nephro (4) Diabetes mellitus, type II: (5) Hypoglycemia: Was hypoglycemic on admission, now resolved. Likely due to poor p.o. intake in combination with continued insulin use -Hgb A1c 7.4 10/2020 Poor glycemic control Pharm on board helping with glycemic management (6) Adverse effect of drug therapy: Possible adverse effect of insulin and oral hypoglycemic drugs, in the setting of Ozempic use and LAMAR. May have contributed to hypoglycemia and LAMAR seen on admission. (7) HTN (hypertension): BP elevated Continue carvedilol, hydralazine Continue Amlodipine now increased to 10 mg daily (8) Chronic diastolic CHF (congestive heart failure): Contiue to hold Lasix due to LAMAR (9) MINISTERIO on CPAP: CPAP as per home settings (10) Hypothyroidism: Chronic, stable Cont home levothyroxine (11) Chronic pain: Takes gabapentin which has been on hold since admission due to renal function (12) DVT prophylaxis: Heparin Full Code Dispo-cont telemetry montioring. UTI Urine culture grew E.coli Completed antibiotics Admission and Anticipated Discharge Date Admission Date: January 18, 2021 Subjective 60-year-old female with PMH DM type II, CKD stage III, hypothyroidism, MINISTERIO on CPAP, chronic diastolic CHF, SSS s/p pacemaker, HTN, history of endometrial cancer s/p hysterectomy who presented the ED for evaluation of generalized weakness and jerking of extremities Being managed for LAMAR on CKD 3 now on HD Patient seen and examined this morning. Reports generalized weakness is improving with physical therapy. Had some questions about her meds that were on hold. Besides that, had no other complaints Review of Systems Review of Systems: All systems reviewed & are unremarkable except as noted in Subjective Physical Exam Constitutional: + well hydrated and + obese; no acute distress Eyes: PERRL, conjunctivae normal, anicteric sclerae ENMT: external ear and nose normal, oropharynx normal Respiratory: normal respiratory effort, lungs clear to auscultation Cardiovascular: Rate/Rhythm: regular rate and regular rhythm S1-S2 Gastrointestinal (Abdomen): normal bowel sounds, soft, nontender, no hepatosplenomegaly Musculoskeletal: no cyanosis or clubbing, extremities motor strength 5/5 Trace pedal edema Neurologic: PERRL, EOMI, accommodation nl, no face palsy, no dysarthria Psychiatric: A+Ox3, euthymic affect Genitourinary: no CVA tenderness Results & Data Results & Data ([facility]) Vital Signs (Past 12 Hours) Vital Signs Temp Pulse Resp BP Pulse Ox 01/25/21 07:43 36.7 C 69 18 160/67 H 95 01/25/21 03:10 36.7 C 75 18 177/66 H 97 01/24/21 22:39 36.7 C 72 18 138/55 L 96 Laboratory Results Abnormal lab results 01/24/21 01/24/21 01/24/21 Range/Units 11:20 16:48 20:17 BUN (7-18) mg/dl Creatinine (0.6-1.2) mg/dl BUN/Creatinine Ratio (10-20) Glucose (70-99) mg/dl POC Glucose 226 H 220 H 294 H (70-99) mg/dl 01/25/21 01/25/21 Range/Units 07:32 07:45 BUN 51 H (7-18) mg/dl Creatinine 5.21 H* D (0.6-1.2) mg/dl BUN/Creatinine Ratio 9.7 L (10-20) Glucose 178 H (70-99) mg/dl POC Glucose 183 H (70-99) mg/dl (1) HTN (hypertension) Hypertension type: unspecified Qualified Code(s): I10 - Essential (primary) hypertension
--- NOTE | 2021-01-25 14:16 | Pharmacy Report ---
Pharmacy Glycemic Short Note 2 - Date of Service January 25, 2021 - Glycemic Short BSG Results (Last 24 hours): 01/24/21 01/24/21 01/25/21 16:48 20:17 07:32 Glucose 178 H POC Glucose 220 H 294 H 01/25/21 01/25/21 07:45 12:04 Glucose POC Glucose 183 H 244 H OUTPATIENT ANTIDIABETIC REGIMEN: * Lantus 23 units Qam, Humalog CR 1:4 + SSI, Ozempic * A1c 7.4% 01/20/21 ASSESSMENT: 01/25 * Patient received total of 63 units of insulin yesterday, BSGs continue above goal 183-294mg/dl despite changes made yesterday * Fasting BSG 183 mg/dL - increase basal again * Tighten CF/CR further 01/24 * Patient received total of 49 units of insulin yesterday, BSGs above goal 184- 354mg/dl * Fasting BSG 218 mg/dL - increase basal again * Tighten CF/CR 01/23 * Patient received total of 38 units of insulin yesterday, BSGs fluctuating [id number] * Fasting BSG 184 mg/dL - plan to increase to 20 units basal this AM * Continue same CF/CR for now, BSGs labile - don't want to make too many changes 01/22 * Patient admitted with significant LAMAR on admission. Started on hemodialysis with first session 01/20. Patient with hx of type 2 diabetes. Hypoglycemic on admission, therefore basal insulin held. BSGs relatively controlled with just SSI, however now starting to trend up in the 200s * Patient received total of 26 units of SSI yesterday and BSGs still in 200s during the day. Plan to start low dose Lantus today with 15 units x 1 (half of insulin needs yesterday) * Patient scheduled for another dialysis session today. Will tighten CR slightly, continue same CF for now PLAN FOR INPATIENT GLYCEMIC CONTROL: * Hold outpatient Ozempic SQ * Basal insulin - increase * Lantus 40 units daily * Bolus insulin -tighten CF/CR * NovoLog per scale ACHS or Q6hrs while NPO * Goal Range: Low 110 mg/dL - High 140 mg/dL * Correction Factor: 15 mg/dL/unit * Nutritional / Prandial insulin per carb ratio of 1 unit per 4 grams CHO consumed PLAN FOR DISCHARGE: * Patient likely needing insulin adjustments on discharge as now starting Hemodialysis. Anticipate insulin needs to be less * Will continue to follow to determine insulin needs
--- NOTE | 2021-01-25 17:48 | Nephrology Progress Note ---
Date of Service January 25, 2021 Assessment & Plan (1) Acute kidney injury superimposed on CKD: nonoliguric LAMAR on CKD 3: ATN. intake UA c/w UTI and cx w/ sandra Se E coli > on ceftriaxone. no obstruction on imaging. doubt glomerular process based on UA, clinical presentation. no concern for nephrotic syndrome. ozempic has been a/w worsening renal function in pts w/ volume depletion > may be at work here. volume status in obese pt actually challenging to assess. CK wnl; ESR mid 60s, far less concerning for GN in this range. 900 mg proteinuria but in setting of infected urine of unclear significance. Baseline creatinine 1.6-1.8. -daily bmp -cont strict I/O >>w/ worsening BUN, acid base balance, creatinine, phos despite supportive care >> moved ahead w/ trial of dialysis starting 01/20 for clearance primarily; consent on chart; ICU assistance w/ line placement appreciated; no UF on first 01/20 x 2.5 hr on small dialyzer; second HD 01/22 w/ 500 mL UF -temp cath placed by [facility] 01/20; first HD same day > >>>again, observe for today -- and hopefully for rest of the week -cont to hold lasix, ozempic, IVF >w/ dialysis, monitor for withdrawal from gabapentin -her UOP is brisk; chemistries acceptable; some mild edema and some anorexia but otherwise few sx to date >>> again, will take several days yet to determine whether or not this patient will need a tunnelled dialysis catheter and/or outpatient dialysis; I do not believe she will be ESRD; she would be adherent with therapy >> may be best to get her to rehab soon; d/c catheter tomorrow if labs look ok and send to IP re hab; follow her labs/wts/I-O there; may yet need tunnelled dialysis catheter as OP/further dialysis but she could looking into whether she could be admitted to OP dialysis w/ LAMAR based on her insurance if need arise; if so, may be able to be d/c w/ very close OP f/u. Care coordinated w/ Dr Blair (2) HTN (hypertension): some elevation and would expect this w/ held meds, anxiety. sbp 120-160s w/o sx > observe; no ivf running now -cont coreg, hydralazine; trial of amlodipine started > increased amlodipine to 10 mg daily, increased hydralazine to 75 mg tid 01/23 >> these may well have a role in edema unfortunately -will increase coreg to 12.5 mg bid; will lower amlodipine to 5 mg daily given edema -activity as tolerated Admission and Anticipated Discharge Date Admission Date: January 18, 2021 Subjective no interval events. noting anorexia past few days and more edema. more anxiety/depression off of meds. Review of Systems Review of Systems: All systems reviewed & are unremarkable except as noted in Subjective Physical Exam Constitutional: well developed, well nourished, + obese and cooperative; no acute distress Eyes: EOM intact bilaterally ENMT: Ears: no external ear abnormality Nose: no external nose abnormality Mouth: + dry oral mucous membranes Neck: no nuchal rigidity Respiratory: normal respiratory effort Auscultation: lungs clear to auscultation bilaterally and + diminished lung sounds Cardiovascular: Rate/Rhythm: regular rate and regular rhythm Heart Sounds: + murmur Extremities: + edema (1+ BL ankle edema) Gastrointestinal (Abdomen): Inspection/Auscultation: + abdomen distended (slight ) and normal bowel sounds Percussion/Palpation: abdomen soft; abdomen nontender and no guarding Musculoskeletal: Extremities: + abnormal strength (generalized weakness) Skin: no rashes, warm and dry + pallor Neurologic: awake Motor/Sensory: + abnormal movement (+ myoclonic jerks) Psychiatric: A+Ox3, euthymic affect Results & Data ([facility]) Vital Signs (Past 12 Hours) Vital Signs Temp Pulse Resp BP BP Pulse Ox 01/25/21 15:32 36.6 C 90 18 147/62 H 96 01/25/21 12:09 36.6 C 72 20 157/77 H 97 01/25/21 07:43 36.7 C 69 18 160/67 H 95 Laboratory Results 01/19/21 09:35 01/25/21 07:32 (1) HTN (hypertension) Hypertension type: unspecified Qualified Code(s): I10 - Essential (primary) hypertension
[2021-01-25] MEDS ORDERED: CITALOPRAM 20 MG TAB PO ONE (19:00)
[2021-01-25] MEDS: carvediloL 12.5 MG TAB PO SCH (20:14)
[2021-01-25] MEDS: ATORVASTATIN 40 MG TAB PO SCH (20:14)
[2021-01-26] MEDS: HEPARIN SOD 5,000 UNIT/0.5 ML VIAL SQ SCH (06:30)
[2021-01-26] MEDS: LEVOTHYROXINE SODIUM 100 MCG TABLET PO SCH (06:30)
[2021-01-26 06:58] LABS: Hematocrit (blood only) 27.3 % (37-47); Mean Corpuscular Hemoglobin 30.5 pg (25-34); Mean Corpuscular Volume 92.5 fL (80-100); Mean Platelet Volume 9.2 fL (7.4-10.4); Platelet Count 221 K/uL (130-400); RDW Coefficient of Variation 12.9 % (11.5-14.5); RDW Standard Deviation 44.3 fL (36.4-46.3); Red Blood Count 2.95 M/uL (4.2-5.4); White Blood Count 10.26 K/uL (4.8-10.8)
[2021-01-26 07:35] LABS: BUN Creatinine Ratio 10.6 (10-20); Calcium 8.8 mg/dl (8.5-10.1); Creatinine Clr Calc Pharmacy 13.5 ml/min; Est GFR (African American) 8.9 ml/min; Est GFR (Non-African American) 7.7 ml/min
[2021-01-26] MEDS: PANTOprazole 40 MG TAB PO SCH (08:06)
[2021-01-26] MEDS: hydrALAZINE HCL 25 MG TAB PO SCH (08:06)
[2021-01-26] MEDS: carvediloL 12.5 MG TAB PO SCH (08:07)
[2021-01-26] MEDS: INSULIN ASPART 100 UNITS/ML 3 ML PEN SC SCH ×2 (08:26→12:25)
[2021-01-26] MEDS: INSULIN GLARGINE SOLOSTAR 100 UNITS/ML 3 ML PEN SC SCH (08:26)
[2021-01-26] MEDS ORDERED: amLODIPine BESYLATE 5 MG TAB PO SCH (09:00)
[2021-01-26] MEDS ORDERED: CITALOPRAM 20 MG TAB PO SCH (09:00)
[2021-01-26] MEDS ORDERED: INSULIN GLARGINE SOLOSTAR 100 UNITS/ML 3 ML PEN SC SCH (09:00)
--- NOTE | 2021-01-26 09:49 | Nephrology Progress Note ---
Date of Service January 26, 2021 Assessment & Plan (1) Acute kidney injury superimposed on CKD: Stage 3 nonoliguric LAMAR on CKD 3: ATN. intake UA c/w UTI and cx w/ sandra Se E coli > on ceftriaxone. no obstruction on imaging. doubt glomerular process based on UA, clinical presentation. no concern for nephrotic syndrome. ozempic has been a/w worsening renal function in pts w/ volume depletion > may be at work here. volume status in obese pt actually challenging to assess. CK wnl; ESR mid 60s, far less concerning for GN in this range, though still possible. 900 mg proteinuria but in setting of infected urine of unclear significance. Baseline creatinine 1.6-1.8. Peak creatinine 7.4 on 01/20. >>w/ worsening BUN, acid base balance, creatinine, phos despite supportive care >> moved ahead w/ trial of dialysis starting 01/20 for clearance primarily; consent on chart; ICU assistance w/ line placement appreciated; no UF on first 01/20 x 2.5 hr on small dialyzer; second HD 01/22 w/ 500 mL UF -temp cath placed by [facility] 01/20; first HD same day -chemistries in general have been acceptable >>she has been minimum 1.3 and up to 1.5 L negative consistently past 3 days w/ no diuretics >> hopeful this is late/ diuretic phase of ATN >>at this point would remove dialysis catheter and prepare to d/c home if otherwise clinically feasible w/ close nephro f/u -her UOP is brisk; chemistries acceptable; some mild edema and some anorexia but otherwise few sx to date NEPHRO DISCHARGE RECS (d/c summary updated): -discharge for BP meds on hydralazine 100 mg tid, coreg 12.5 mg bid, amodipine 5 mg daily; lasix 40 mg po MWF and hold if NO edema -low sodium (<2 gm daily) diet and 1.5 L /50 oz fluid limit -BMP every Fri/ x 3 wks to be ordered by nephrology -hospital f/u w/ Dr Hassan in CKD clinic in 2-3 weeks -would not resume gabapentin (and would resume at renal doses only) until renal function at least begins to improve -hold ozempic at discharge -recommend psychiatric care after d/c to choose appropriate depression/anxiety medications in setting of significant and changing renal failure Care coordinated w/ Dr Blair (2) HTN (hypertension): some elevation and would expect this w/ held meds, anxiety. -BP meds, diet as above -activity as tolerated Admission and Anticipated Discharge Date Admission Date: January 18, 2021 Subjective Some edema, improving anorexia, no shortness of breath; no voiding concerns Review of Systems Review of Systems: All systems reviewed & are unremarkable except as noted in Subjective Physical Exam Constitutional: well developed, well nourished, + obese and cooperative; no acute distress Eyes: EOM intact bilaterally ENMT: Ears: no external ear abnormality Nose: no external nose abnormality Mouth: + dry oral mucous membranes Neck: no nuchal rigidity Respiratory: normal respiratory effort Auscultation: lungs clear to auscultation bilaterally and + diminished lung sounds Cardiovascular: Rate/Rhythm: regular rate and regular rhythm Heart Sounds: + murmur Extremities: + edema (1+ BL ankle edema) Gastrointestinal (Abdomen): Inspection/Auscultation: + abdomen distended (slight ) and normal bowel sounds Percussion/Palpation: abdomen soft; abdomen nontender and no guarding Musculoskeletal: Extremities: + abnormal strength (generalized weakness) Skin: no rashes, warm and dry + pallor Neurologic: awake Motor/Sensory: + abnormal movement (+ myoclonic jerks minimal) Psychiatric: A+Ox3, euthymic affect Results & Data ([facility]) Vital Signs (Past 12 Hours) Vital Signs Temp Pulse Pulse Resp BP BP Pulse Ox 01/26/21 07:40 36.7 C 70 16 172/85 H 96 01/26/21 03:43 36.6 C 67 20 175/85 H 95 01/25/21 22:32 37 C 69 18 125/71 95 01/25/21 22:19 70 Laboratory Results 01/26/21 06:25 01/26/21 06:25 (1) HTN (hypertension) Hypertension type: unspecified Qualified Code(s): I10 - Essential (primary) hypertension
[2021-01-26] MEDS ORDERED: LORazepam 0.5 MG TAB PO PRN (10:58)
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
--- NOTE | 2021-01-26 12:30 | Discharge Summary ---
Date of Service January 26, 2021 Admission HPI Per Admitting Provider 60-year-old female with PMH DM type II, CKD stage III, hypothyroidism, MINISTERIO on CPAP, chronic diastolic CHF, SSS s/p pacemaker, HTN, history of endometrial cancer s/p hysterectomy, and other problems to below who presents the ED for evaluation of generalized weakness and extremity jerking. Patient reports that over the past few days, she has had increasing generalized weakness. She was unable to dress herself this morning. She also reports bilateral arm and leg jerking at times. She reports she was camping over the weekend however reports that she stayed inside the camper in the air conditioning due to the heat. She reports that she was able to stay hydrated. She had a UTI in November and was treated with Bactrim. She reports ongoing dysuria and very cloudy urine. Repeat urine culture was negative. Patient is scheduled to see urology. She reports a poor appetite and has continued to take her normal amounts of insulin. Reports having low blood sugars in the 60s over the past couple of weeks. She denies abdominal pain, vomiting, diarrhea. No fevers or chills. Has had slightly worsening exertional shortness of breath, no chest pain. Denies lightheadedness, dizziness, diaphoresis, syncopal events. In the ED, patient is on be hypoglycemic at 51. This improved after orange juice. Labs also show sodium 127, BUN 81, creatinine 7.1. Patient is hemodynamically stable. She was given 1 L NSS. Admission Exam Per Admitting Provider Constitutional: WD/WN, vitals as above + obese Eyes: PERRL, conjunctivae normal, anicteric sclerae ENMT: external ear and nose normal, oropharynx normal Respiratory: normal respiratory effort, lungs clear to auscultation Cardiovascular: Rate/Rhythm: regular rate and regular rhythm Vessels: normal peripheral pulses Extremities: no edema Gastrointestinal (Abdomen): normal bowel sounds, soft, nontender, no hepatosplenomegaly Musculoskeletal: no cyanosis or clubbing, extremities motor strength 5/5 Skin: no rashes, warm and dry Chronic venous changes BLE Neurologic: PERRL, EOMI, accommodation nl, no face palsy, no dysarthria Psychiatric: A+Ox3, euthymic affect Principal Diagnosis LAMAR on CKD 3 Hypertension Hypoglycemia Discharge Exam Constitutional + well hydrated and + obese; no acute distress Eyes PERRL, conjunctivae normal, anicteric sclerae ENMT external ear and nose normal, oropharynx normal Respiratory normal respiratory effort, lungs clear to auscultation Cardiovascular Rate/Rhythm: regular rate and regular rhythm S1-S2. +1 pedal edema Celexa 40 mg daily and prescribing a few doses of Ativan 0.5 mg twice daily as needed for anxiety. Patient needs referral to a psychiatrist Gastrointestinal (Abdomen) normal bowel sounds, soft, nontender, no hepatosplenomegaly Musculoskeletal no cyanosis or clubbing, extremities motor strength 5/5 Neurologic PERRL, EOMI, accommodation nl, no face palsy, no dysarthria Psychiatric A+Ox3, euthymic affect Genitourinary no CVA tenderness Discharge Data Allergies Allergy/AdvReac Type Severity Reaction Status Date / Time CHIDI Inhibitors AdvReac Mild COUGH Verified 01/18/21 11:20 Consultations 01/18/21 11:13 ED Decision to Admit Stat 01/18/21 15:49 Consult Nephrology Routine 01/25/21 18:28 Consult Psychiatry Routine Ordered Studies 01/18/21 09:38 CT head/brain wo con Stat No intra or extra-axial mass lesions are visualized. There is no CT evidence of acute cortical infarction. There is no evidence of midline shift. There is no acute hemorrhage. No calvarial fractures are visualized. There is no evidence of pathologic ventricular dilatation. There is a persistent polyp/retention cyst within the left sphenoid sinus. IMPRESSION: No acute intracranial findings 01/18/21 11:54 US renal/blad retro comp Urgent Right kidney: 12.3 cm. No hydronephrosis. Normal cortical thickness. Mild increased cortical echogenicity. Left kidney: 12.3 cm. No hydronephrosis. Normal cortical thickness. Mild increased cortical echogenicity. Bladder: No bladder wall thickening. The bilateral ureteral jets were id entified. IMPRESSION: 1. Mild bilateral increased cortical echogenicity suggestive of medical renal disease. 2. No hydronephrosis. Hospital Course (1) Acute kidney injury (LAMAR) with acute tubular necrosis (ATN): (2) CKD (chronic kidney disease), stage III: LAMAR on CKD3 Was comanaged with the medical radiation tech. Patient required 2 sessions of hemodialysis on 01/20/21 and 01/22/2021 with a temporary hemodialysis catheter. Creatinine was 7.11 on admission, BUN and was 81 and bicarb was 18. Creatinine is currently 5.5 with a BUN of 58 and bicarb of 27 Patient still making urine Patient will need to go to times a week labs on Mondays and to be followed up by nephrology. Need to follow-up with medical radiation tech Dr. Hassan at CKD clinic in 2 to 3 weeks Certain medication adjustments were made: Gabapentin, bupropion, Ozempic were discontinued Lasix 40 mg Friday as needed leg edema (3) Hyponatremia: Resolved. Continue low sodium diet and fluid restriction 1500 cc/day (4) Diabetes mellitus, type II: (5) Hypoglycemia: Was hypoglycemic on admission, now resolved. Likely due to poor p.o. intake in combination with continued insulin use -Hgb A1c 7.4 10/2020 Continue home insulin regimen. Ozempic discontinued as stated above (6) Adverse effect of drug therapy: Possible adverse effect of insulin and oral hypoglycemic drugs, in the setting of Ozempic use and LAMAR. May have contributed to hypoglycemia and LAMAR seen on admission. (7) HTN (hypertension): BP was quite elevated throughout stay BP still elevated but improved Discussed with medical radiation tech. Hydralazine increased to 100 mg 3 times daily. Carvedilol increased to 12.5 mg twice daily Started on amlodipine 5 mg daily (8) Chronic diastolic CHF (congestive heart failure): Continue Lasix as discussed above (9) MINISTERIO on CPAP: CPAP as per home settings (10) Hypothyroidism: Chronic, stable Cont home levothyroxine (11) Chronic pain: Gabapentin discontinued due to renal function (12) Anxiety: For patient's anxiety Psychiatrist recommended continuing home Celexa 40 mg daily and prescribing a few doses of Ativan 0.5 mg twice daily as needed for anxiety. Patient needs referral to a psychiatrist Stop bupropion due to renal function Total Time Total Time Spent Total Time Spent (In Minutes): 65 Total Time Includes: Examination of the Patient, Discharge Planning, Medication Reconciliation and Communication With Other Providers Discharge Plan Discharge Items Patient Disposition: Home - Home Health Services Reason For Visit: Generalized weakness and jerking extremities Discharge Diagnosis: Acute kidney injury superimposed on chronic kidney disease stage III Hypertension Hypoglycemia Condition on Discharge: Good Activity: Resume your previous activity Non-emergency contact: Primary Care Provider, Keyboarding Teacher and Psychiatrist Call non-emergency contact if: you have any medication questions and your symptoms worsen Follow-up/Referrals: Luis Fernando Rojas MD [Primary Care Provider] - (Date & Time 01/31/2021 11:00 AM Provider Luis Fernando Rojas MD [facility] ) Diet: Carb Consistent or DM2 and Low Sodium (2gm) Fluids: 1500ml (6 cups) Addtl Attending Provider Instructions: Mrs Finley. You came to the hospital complaining of generalized weakness injecting in your extremities. You were evaluated and found to have severe acute kidney injury on your chronic kidney disease stage III. You required 2 sessions of hemodialysis. You are being discharged home. You will need to to labs twice a week every Friday and for the next 3 weeks as ordered by nephrology. He will need to follow-up with nephrology in CKD clinic in 2 to 3 weeks. Certain medication adjustments were made due to the worsening of your kidney function. -Stop taking your gabapentin for now. -Stop taking Ozempic for now. -Stop taking Wellbutrin For your anxiety, continue taking your Celexa 40 mg daily. You are being discharged on lorazepam 0.5 mg twice a day as needed for anxiety according to psychiatrist recommendation. It is very important that you establish care with a psychiatrist for continued management. For better blood pressure control, hydralazine was increased to 100 mg 3 times a day and Coreg was increased to 12.5 mg twice a day. He also started amlodipine 5 mg. You were started on Lasix 40 mg on Friday and Friday only as needed for leg swelling/edema It is very important that you stick to the fluid restriction of 1500 cc/day and low-sodium diet as discussed Please ensure follow-up with your Primary Doctor, the Keyboarding Teacher and a Psychiatrist It was a pleasure taking care of you Pending Studies at Discharge: No Stand-Alone Forms: My [employer], Smoking Cessation Medications and DC Order Prescriptions: New carvedilol 12.5 mg Tablet 12.5 mg PO BID 30 Days Qty: 60 RF: 0 amlodipine [Norvasc] 5 mg Tablet 5 mg PO QAM 30 Days Qty: 30 RF: 0 lorazepam 0.5 mg Tablet 0.5 mg PO Q12 PRN (Reason: anxiety) 7 Days Qty: 14 RF: 0 calcium citrate-vitamin D3 [Citracal + D Maximum] 315 mg-6.25 mcg (250 unit) Tablet 1 tab PO .BIDPC Qty: 60 RF: 0 Renal Caps 1 mg Capsule 1 cap PO QAM 30 Days Qty: 30 RF: 0 hydralazine 50 mg Tablet 100 mg PO TID 30 Days Qty: 180 RF: 0 Continued Lantus U-100 Insulin 100 unit/mL Solution 23 unit SUBCUT QAM RF: 0 citalopram 40 mg Tablet 40 mg PO QAM RF: 0 levothyroxine [Synthroid] 100 mcg Tablet 100 mcg PO QAM RF: 0 Humalog U-100 Insulin 100 unit/mL Cartridge 1 sliding scale dose SUBCUT UD RF: 0 atorvastatin 40 mg Tablet 40 mg PO PM RF: 0 pantoprazole 40 mg Tablet,Delayed Release (Dr/Ec) 40 mg PO QAM RF: 0 melatonin 10 mg Tablet 10 mg PO HS PRN (Reason: Insomnia) RF: 0 Changed furosemide 40 mg tablet 40 mg PO MOWEFR PRN (Reason: edema) Qty: 12 RF: 0 Discontinued doxycycline hyclate 20 mg Tablet 20 mg PO BID RF: 0 carvedilol 6.25 mg Tablet 6.25 mg PO BID RF: 0 multivitamin Tablet 1 tab PO QAM RF: 0 gabapentin 600 mg Tablet 600 mg PO TID RF: 0 hydralazine 50 mg Tablet 50 mg PO TID RF: 0 Ozempic 1 mg/dose (4 mg/3 mL) pen injector 1 mg SUBCUT WK RF: 0 bupropion HCl [Wellbutrin SR] 150 mg Tablet Sustained-Release 12 Hr 150 mg PO Q12H RF: 0 Calcium Citrate + Tablet 1 tab PO DAILY RF: 0 Discharge Orders: Discharge Order (Routine); Ordered 01/26/21 Ordered By: April Looney/Other Patient Handouts: Managing Type 2 Diabetes, A1C Admission Data Admit Date/Time: 01/18/21 11:25 Attending Provider: April Blair I. Admit Provider: Maria D Baird Primary Care Provider: Luis Fernando Rojas Other Providers: [facility] ; [place] ; Maria D Baird ; Clare Donaldson ; Dr Aniket ; Lanny Puentes ; Harmeet Gillespie Other Interventions: Discharge Summary Assessment (RN) Last Done: 01/26/21 12:41
[2021-01-26] MEDS ORDERED: CALCIUM CITRATE 950 MG TAB PO SCH (13:00)
--- NOTE | 2021-01-27 06:09 | Electrocardiogram Report ---
Test Reason : Blood Pressure : / mmHG Vent. Rate : 063 BPM Atrial Rate : 063 BPM P-R Int : 282 ms QRS Dur : 090 ms QT Int : 446 ms P-R-T Axes : 029 007 030 degrees QTc Int : 456 ms Atrial-paced rhythm with prolonged AV conduction Abnormal ECG When compared with ECG of 18-JAN-2021 09:48, No significant change was found Confirmed by Josse Nance ([id number]) on 01/27/2021 6:08:46 AM Referred By: REFERRED SELF Confirmed By:Josse Nance
[2021-01-27] MEDS ORDERED: CHOLECALCIFEROL 400 UNITS 10 MCG TAB PO SCH (09:00)
[2021-01-27] MEDS ORDERED: NEPHROCAPS PO SCH (09:00)
== END 2021-01-26 15:31 | disposition home health service (06) | DRG 683 ==
LOC: ED 09:00 → SUATTDRO 11:25 → 2S 11:25 → 2N 01-23 12:30

== ENCOUNTER 2021-02-02 13:32 | Inpatient (IN) ==
--- NOTE | 2021-02-02 14:08 | Emergency Department Note ---
Impression & Plan Acute renal failure, CHF (congestive heart failure) ED Provider Note NAME: TAMARA EAGLE AGE: 60 SEX: F : 1960 ARRIVES VIA: Walk-In INFORMANT: Patient, ED PROVIDER(S): Jayro Cates MD Chief Complaint: Shortness of breath, weakness HPI: Patient does present with the above complaints and states that this is been ongoing since her hospital discharge from the hospital last Friday. The patient did require 2 sessions of dialysis. The patient no longer has a permacath. The patient states that she gets short of breath with activity but her urine output has been okay. The patient denies any fevers or chills or chest pains. Patient denies any cough or infectious symptoms. The patient is vaccinated for Covid. The patient denies any issues with lower extremity swelling history of DVT or PE. The patient does have history of kidney dysfunction and did have repeat blood work completed on Friday which showed elevated creatinine potassium was referred here for further evaluation treatment. Patient does follow with [facility] nephrology Dr. Bell and Dr. Delaney. Patient does have a history of CHF. ROS: See HPI for pertinent positives and negatives. A total of 10 systems were reviewed and otherwise negative. Past medical history: See below Surgical history: See below Social history: See below Physical Exam: GENERAL: Wearing a mask. NAD, non-toxic. EYE EXAM: Normal conjunctiva. PERRL, no anisocoria and EOM's grossly intact w/o pain. NECK: Supple, no nuchal rigidity, no adenopathy, non-tender. No signs of meningismus. LUNGS: Clear to auscultation. Normal chest wall mechanics. HEART: NSR, no MRG. ABDOMEN: Abdomen soft, non-tender, normo-active bowel sounds, no masses, no r ebound or guarding. BACK: No CVA TTP. SKIN: No rashes and no bruising. UPPER EXTREMITIES: Upper extremities are grossly normal. LOWER EXTREMITIES: Grossly normal, no edema. NEURO EXAM: A&O x3, cranial nerves II-XII grossly intact, normal speech, moves all 4 extremities on command w/o issue. Differential diagnoses: Reactive airway disease, pneumonia, pneumothorax, COPD, CHF, infections, cardiac ischemia, pulmonary embolism, musculoskeletal, gastrointestinal, as well as other pathologies. Course: Patient was seen and evaluated the bedside. Full history physical exam was performed. EKG interpreted by me Sinus with first-degree AV block, rate of 72, normal QRS and normal axis. Imaging Studies: See below Cardiac monitoring: An order was placed for continuous cardiac monitoring. The monitor shows a rate of 73 with sinus rhythm. MDM: Patient was seen due to concern for kidney dysfunction and shortness of breath. Blood work is obtained. Patient does have a normal white counts with anemia. The patient does have worsening kidney dysfunction. Potassium is not elevated. BNP elevated with pulmonary edema noted on chest film. Patient was ordered Lasix. I did speak with the on-call hospitalist LUCRECIA Lagunas and the patient was admitted by Dr. Ortiz. I did speak with Dr. Bell to ensure if the patient required dialysis that it could be completed over the weekend. This was confirmed that this is feasible. Past Med/Surg History Medical History Chronic diastolic CHF (congestive heart failure) CKD (chronic kidney disease), stage III Depression Diabetes mellitus, type II Difficult airway for intubation Endometrial carcinoma (02/23/13) "S/P hysterectomy " GERD (gastroesophageal reflux disease) History of melanoma HLD (hyperlipidemia) HTN (hypertension) Hypothyroidism MDD (major depressive disorder) MINISTERIO on CPAP Pacemaker SSS (sick sinus syndrome) Pt admitted for elective pacemaker due to SSS. She underwent procedure wi thout any complications. Monitored over night and discharged home. Surgical History H/O esophagogastroduodenoscopy H/O hernia repair History of cholecystectomy Hx of cardiac cath "2012, negative for CAD " Hx of gastric bypass S/P knee surgery S/P JERSEY-BSO Family History Other Colonic polyp GERD (gastroesophageal reflux disease) Social History Smoking Status: Never smoker Second Hand Exposure: No; Hx Alcohol Use: No Hx Substance Use: No Preferred Language: Kenyan Communication Ability: Effective Veterinary Epidemiologist Required: No Beliefs That Will Affect Care: None Current Living Situation: Spouse Current Living Situation Comment: LIVES WITH Feels Safe at Home: Yes Assistive Devices: None Allergies Allergies Allergy/AdvReac Type Severity Reaction Status Date / Time CHIDI Inhibitors AdvReac Mild COUGH Verified 01/18/21 11:20 Home Meds Home Medications Medication Instructions Recorded Confirmed atorvastatin 40 mg tablet 40 mg PO PM 07/05/18 01/18/21 citalopram 40 mg tablet 40 mg PO QAM 07/05/18 01/18/21 insulin glargine 100 unit/mL 23 unit SUBCUT QAM 07/05/18 01/18/21 subcutaneous solution (Lantus U-100 Insulin) insulin lispro 100 unit/mL 1 sliding scale dose SUBCUT UD 07/05/18 01/18/21 subcutaneous cartridge (Humalog U-100 Insulin) levothyroxine 100 mcg tablet 100 mcg PO QAM 07/05/18 01/18/21 (Synthroid) pantoprazole 40 mg tablet,delayed 40 mg PO QAM 07/05/18 01/18/21 release melatonin 10 mg tablet 10 mg PO HS PRN 01/18/21 01/18/21 Previous Rx's Medication Instructions Recorded amlodipine 5 mg tablet (Norvasc) 5 mg PO QAM 30 Days #30 tab 01/26/21 calcium citrate 315 mg 1 tab PO .BIDPC #60 tab 01/26/21 calcium-vitamin D3 6.25 mcg (250 unit) tablet (Citracal + Vitamin D Maximum) carvedilol 12.5 mg tablet 12.5 mg PO BID 30 Days #60 tab 01/26/21 furosemide 40 mg tablet 40 mg PO MOWEFR PRN #12 tab 01/26/21 hydralazine 50 mg tablet 100 mg PO TID 30 Days #180 tab 01/26/21 vitamin B complex and vitamin C 1 cap PO QAM 30 Days #30 cap 01/26/21 no.20-folic acid 1 mg capsule (Renal Caps) Results & Data (ED) Vital Signs Vital Signs - 24 hr 02/02/21 13:36 02/02/21 14:56 02/02/21 14:58 Temperature 36.7 C Temperature Source Temporal Artery Scan Pulse Rate 73 Pulse Rate [Finger] 70 Respiratory Rate 20 18 Respiratory Effort / Characteristics Non-Labored Spontaneous Respiratory Depth Normal Respiratory Pattern Regular Blood Pressure 149/65 H Blood Pressure [Left Arm] 114/69 Blood Pressure Mean 93 Blood Pressure Mean [Left Arm] 84 Blood Pressure Position Sitting Pulse Oximetry 98 98 98 Oxygen Delivery Method Room Air Room Air Room Air Sepsis Recent Fever Within 48 Hours No Sepsis New/Unexplained Change in Mental Status N/A Sepsis Action Taken by Nursing No Action Required Laboratory Data Result diagrams: 02/02/21 15:28 02/02/21 15:28 Lab Results 02/02/21 02/02/21 02/02/21 Range/Units 14:28 14:28 15:28 WBC 10.25 (4.8-10.8) K/uL RBC 3.05 L (4.2-5.4) M/uL Hgb 9.2 L (12.0-16.0) g/dL Hct 29.2 L (37-47) % MCV 95.7 (80-100) fL MCH 30.2 (25-34) pg MCHC 31.5 L (32-36) g/dL RDW Std Deviation 44.3 (36.4-46.3) fL RDW Coeff of Leatha 12.8 (11.5-14.5) % Plt Count 261 (130-400) K/uL MPV 10.2 (7.4-10.4) fL Immature Gran % (Auto) 0.1 % Neut % (Auto) 61.1 % Lymph % (Auto) 29.2 % Bond % (Auto) 7.2 % Eos % (Auto) 2.1 % Baso % (Auto) 0.3 % Neut # (Auto) 6.26 (1.4-6.5) K/uL Lymph # (Auto) 2.99 (1.2-3.4) K/uL Bond # (Auto) 0.74 H (0.11-0.59) K/uL Eos # (Auto) 0.22 (0-0.5) K/uL Baso # (Auto) 0.03 (0-0.2) K/uL Immature Gran # (Auto) 0.01 (0.00-0.02) K/uL Sodium (136-145) mmol/L Potassium (3.5-5.1) mmol/L Chloride (98-107) mmol/L Carbon Dioxide (21-32) mmol/L Anion Gap (3-11) BUN (7-18) mg/dl Creatinine (0.6-1.2) mg/dl Est Cr Clr Drug Dosing ml/min Est GFR ( Amer) ml/min Est GFR (Non-Af Amer) ml/min BUN/Creatinine Ratio (10-20) Glucose (70-99) mg/dl Calcium (8.5-10.1) mg/dl Total Bilirubin (0.2-1) mg/dl AST (15-37) U/L ALT (12-78) U/L Alkaline Phosphatase (45-117) U/L Troponin I (0-0.045) ng/ml NT-Pro-B Natriuret Pep (0-900) pg/ml Total Protein (6.4-8.2) gm/dl Albumin (3.4-5.0) gm/dl Globulin (2.5-4.0) gm/dl Albumin/Globulin Ratio (0.9-2) TSH (0.300-4.500) uIu/ml Specimen Hemolysis Urine Color Urine Appearance (Clear) Urine pH (4.5-7.5) Ur Specific Greenwald (1.000-1.030) Urine Protein (Negative) Urine Glucose (UA) (Negative) Urine Ketones (Negative) Urine Blood (Negative) Urine Nitrite (Negative) Urine Bilirubin (Negative) Urine Urobilinogen (Negative) Ur Leukocyte Esterase (Negative) Urine WBC (Auto) (0-5) /hpf Urine RBC (Auto) (0-4) /hpf U Hyaline Cast (Auto) (0-5) /lpf U Epithel Cells (Auto) (0-5) /lpf Urine Bacteria (Auto) (Negative) COVID-19 Eval Order Covid19 at [facility] SARS-CoV-2 (PCR) NEGATIVE (Negative) 02/02/21 02/02/21 Range/Units 15:28 16:15 WBC (4.8-10.8) K/uL RBC (4.2-5.4) M/uL Hgb (12.0-16.0) g/dL Hct (37-47) % MCV (80-100) fL MCH (25-34) pg MCHC (32-36) g/dL RDW Std Deviation (36.4-46.3) fL RDW Coeff of Leatha (11.5-14.5) % Plt Count (130-400) K/uL MPV (7.4-10.4) fL Immature Gran % (Auto) % Neut % (Auto) % Lymph % (Auto) % Bond % (Auto) % Eos % (Auto) % Baso % (Auto) % Neut # (Auto) (1.4-6.5) K/uL Lymph # (Auto) (1.2-3.4) K/uL Bond # (Auto) (0.11-0.59) K/uL Eos # (Auto) (0-0.5) K/uL Baso # (Auto) (0-0.2) K/uL Immature Gran # (Auto) (0.00-0.02) K/uL Sodium 134 L (136-145) mmol/L Potassium 5.1 (3.5-5.1) mmol/L Chloride 105 (98-107) mmol/L Carbon Dioxide 19 L (21-32) mmol/L Anion Gap 10.0 (3-11) BUN 78 H (7-18) mg/dl Creatinine 6.47 H* (0.6-1.2) mg/dl Est Cr Clr Drug Dosing 11.2 ml/min Est GFR ( Amer) 7.3 ml/min Est GFR (Non-Af Amer) 6.3 ml/min BUN/Creatinine Ratio 11.7 (10-20) Glucose 159 H (70-99) mg/dl Calcium 9.0 (8.5-10.1) mg/dl Total Bilirubin 0.2 (0.2-1) mg/dl AST 40 H (15-37) U/L ALT 78 (12-78) U/L Alkaline Phosphatase 101 (45-117) U/L Troponin I < 0.015 (0-0.045) ng/ml NT-Pro-B Natriuret Pep 1329 H (0-900) pg/ml Total Protein 7.2 (6.4-8.2) gm/dl Albumin 3.3 L (3.4-5.0) gm/dl Globulin 3.9 (2.5-4.0) gm/dl Albumin/Globulin Ratio 0.8 L (0.9-2) TSH 1.750 (0.300-4.500) uIu/ml Specimen Hemolysis Urine Color Yellow Urine Appearance Clear (Clear) Urine pH 5.5 (4.5-7.5) Ur Specific Greenwald 1.008 (1.000-1.030) Urine Protein Trace H (Negative) Urine Glucose (UA) Negative (Negative) Urine Ketones Negative (Negative) Urine Blood Negative (Negative) Urine Nitrite Negative (Negative) Urine Bilirubin Negative (Negative) Urine Urobilinogen Negative (Negative) Ur Leukocyte Esterase Negative (Negative) Urine WBC (Auto) 1-5 (0-5) /hpf Urine RBC (Auto) 5-10 H (0-4) /hpf U Hyaline Cast (Auto) 1-5 (0-5) /lpf U Epithel Cells (Auto) 5-10 H (0-5) /lpf Urine Bacteria (Auto) Negative (Negative) COVID-19 Eval Order SARS-CoV-2 (PCR) (Negative) Administered Medications Discontinued Medications Ondansetron HCl (Ondansetron Inj 2 Mg/Ml 2 Ml Vial) 4 mg IV NOW STA Stop: 02/02/21 16:13 Last Admin: 02/02/21 16:15 Dose: 4 mg Documented by: [id number] Imaging Data Radiologist's Impression: Chest X-Ray 02/02/21 14:15 XR chest 1V portable HISTORY: weakness COMPARISON: Chest 01/20/2021. FINDINGS: The heart remains enlarged. There is perihilar interstitial/vascular thickening which has progressed. No pneumothorax. No pleural fusions. There is left-sided dual-chamber pacemaker. No new focal lung consolidations. IMPRESSION: Cardiomegaly with mild interstitial pulmonary edema. This has developed in the interval. ACT 112: Negative or not required by law. Electronically signed by: Kendell Toth M.D. 02/02/2021 2:39 PM Discharge Plan Visit Data Chief Complaint: Abnormal Labs/Diagnostic Testing Stated Complaint: KIDNEY FAILURE,REF BY DOC ED Provider: Jayro Cates Discharge Problem: Acute renal failure, CHF (congestive heart failure) Forms Stand Alone Forms: My GSOUND Prescriptions Prescriptions: No Action Lantus U-100 Insulin 100 unit/mL Solution 23 unit SUBCUT QAM RF: 0 citalopram 40 mg Tablet 40 mg PO QAM RF: 0 levothyroxine [Synthroid] 100 mcg Tablet 100 mcg PO QAM RF: 0 Humalog U-100 Insulin 100 unit/mL Cartridge 1 sliding scale dose SUBCUT UD RF: 0 atorvastatin 40 mg Tablet 40 mg PO PM RF: 0 pantoprazole 40 mg Tablet,Delayed Release (Dr/Ec) 40 mg PO QAM RF: 0 melatonin 10 mg Tablet 10 mg PO HS PRN (Reason: Insomnia) RF: 0 carvedilol 12.5 mg Tablet 12.5 mg PO BID 30 Days Qty: 60 RF: 0 amlodipine [Norvasc] 5 mg Tablet 5 mg PO QAM 30 Days Qty: 30 RF: 0 calcium citrate-vitamin D3 [Citracal + D Maximum] 315 mg-6.25 mcg (250 unit) Tablet 1 tab PO .BIDPC Qty: 60 RF: 0 Renal Caps 1 mg Capsule 1 cap PO QAM 30 Days Qty: 30 RF: 0 furosemide 40 mg tablet 40 mg PO MOWEFR PRN (Reason: edema) Qty: 12 RF: 0 hydralazine 50 mg Tablet 100 mg PO TID 30 Days Qty: 180 RF: 0 Referrals Referrals: Luis Fernando Rojas MD [Primary Care Provider] -
--- NOTE | 2021-02-02 14:41 | XRay Report ---
XR chest 1V portable HISTORY: weakness COMPARISON: Chest 01/20/2021. FINDINGS: The heart remains enlarged. There is perihilar interstitial/vascular thickening which has p rogressed. No pneumothorax. No pleural fusions. There is left-sided dual-chamber pacemaker. No new fo aguila lung consolidations. IMPRESSION: Cardiomegaly with mild interstitial pulmonary edema. This has developed in the interval. ACT 112: Negative or not required by law. Electronically signed by: Kendell Toth M.D. 02/02/2021 2:39 PM
[2021-02-02 15:43] LABS: Basophils # (auto) 0.03 K/uL (0-0.2); Basophils % (auto) 0.3 %; Eosinophils # (auto) 0.22 K/uL (0-0.5); Eosinophils % (auto) 2.1 %; Hematocrit (blood only) 29.2 % (37-47); Hemoglobin 9.2 g/dL (12.0-16.0); Immature Granulocytes # (auto) 0.01 K/uL (0.00-0.02); Immature Granulocytes % (auto) 0.1 %; Lymphocytes # (auto) 2.99 K/uL (1.2-3.4); Lymphocytes % (auto) 29.2 %; Mean Corpuscular Hemoglobin 30.2 pg (25-34); Mean Corpuscular Hgb Conc 31.5 g/dL (32-36); Mean Corpuscular Volume 95.7 fL (80-100); Mean Platelet Volume 10.2 fL (7.4-10.4); Monocytes # (auto) 0.74 K/uL (0.11-0.59); Monocytes % (auto) 7.2 %; Neutrophils # (auto) 6.26 K/uL (1.4-6.5); Neutrophils % (auto) 61.1 %; Platelet Count 261 K/uL (130-400); RDW Coefficient of Variation 12.8 % (11.5-14.5); RDW Standard Deviation 44.3 fL (36.4-46.3); Red Blood Count 3.05 M/uL (4.2-5.4); White Blood Count 10.25 K/uL (4.8-10.8)
[2021-02-02] MEDS ORDERED: ONDANSETRON INJ 2 MG/ML 2 ML VIAL IV STA (16:12)
[2021-02-02 16:21] LABS: Alanine Aminotransferase 78 U/L (12-78); Albumin Globulin Ratio 0.8 (0.9-2); Albumin Level 3.3 gm/dl (3.4-5.0); Alkaline Phosphatase 101 U/L (45-117); Aspartate Aminotransferase 40 U/L (15-37); BUN Creatinine Ratio 11.7 (10-20); Bilirubin,Total 0.2 mg/dl (0.2-1); Blood Urea Nitrogen 78 mg/dl (7-18); Carbon Dioxide 19 mmol/L (21-32); Chloride 105 mmol/L (98-107); Creatinine Clr Calc Pharmacy 11.2 ml/min; Est GFR (African American) 7.3 ml/min; Est GFR (Non-African American) 6.3 ml/min; Globulin 3.9 gm/dl (2.5-4.0); Glucose 159 mg/dl (70-99); NT Pro B Type Natriuretic Pept 1329 pg/ml (0-900); Potassium 5.1 mmol/L (3.5-5.1); Sodium 134 mmol/L (136-145); Total Protein 7.2 gm/dl (6.4-8.2); Troponin I < 0.015 ng/ml (0-0.045)
[2021-02-02 16:29] LABS: Appearance Urine Clear (Clear); Bacteria Urine Automated Negative (Negative); Bilirubin Urine Negative (Negative); Blood Urine Negative (Negative); Color Urine Yellow; Glucose Urine UA Negative (Negative); Ketones Urine Negative (Negative); Leukocyte Esterase Urine Negative (Negative); Nitrite Urine Negative (Negative); Protein Urine Trace (Negative); Specific Gravity Urine 1.008 (1.000-1.030); Urobilinogen Urine Negative (Negative); pH Urine 5.5 (4.5-7.5)
[2021-02-02] MEDS ORDERED: FUROSEMIDE 40 MG/4 ML VIAL IV STA (16:30)
[2021-02-02] MEDS ORDERED: GLUCOSE 40% GEL 15 GM TUBE PO PRN (18:14)
[2021-02-02] MEDS ORDERED: GLUCOSE 10 TABS/TUBE PO PRN (18:14)
[2021-02-02] MEDS ORDERED: CARBOHYDRATES FOR HYPOGLYCEMIA PO PRN (18:14)
[2021-02-02] MEDS ORDERED: DEXTROSE 50% 50 ML SYRINGE IV PRN (18:14)
[2021-02-02] MEDS ORDERED: GLUCAGON FOR INJ 1 MG VIAL SQ PRN (18:14)
--- NOTE | 2021-02-02 20:17 | History & Physical Report ---
Date of Service February 02, 2021 Assessment & Plan (1) Acute kidney injury superimposed on CKD: Plan: -Admit to [facility] with telemetry -Patient presenting by referral of outpatient arch support technician for worsening renal functions -Patient recently admitted to [facility] 01/18 through 01/26 for LAMAR on CKD requiring dialysis. Etiology of LAMAR was unclear however was felt to be possibly secondary to Ozempic and previous use of Metformin. Patient had a temporary hemodialysis catheter placed during admission and received 2 sessions of hemodialysis on 01/20 and 01/22. Catheter was subsequently removed before discharge. Creatinine on discharge 5.5. Outpatient labs on 01/31 show creatinine 6.1. -CXR shows mild pulmonary edema -Creatinine 6.4 today -Received Lasix 80 mg IV in the ED -Nephrology consult, case discussed with Dr. Hassan by Dr. Salguero -recommends holding on additional Lasix, no need for urgent dialysis at the moment (2) Chronic diastolic CHF (congestive heart failure): Plan: -May be mildly volume overloaded -Received Lasix 80 mg IV as above (3) HTN (hypertension): Plan: -BP controlled, continue amlodipine, carvedilol, hydralazine (4) Anemia: Plan: -Hgb 9.2, has been slowly trending down -No signs of bleeding -Likely due to underlying renal disease (5) SSS (sick sinus syndrome): (6) Pacemaker: Plan: -No acute issues (7) Hypothyroidism: Plan: -Continue levothyroxine (8) Diabetes mellitus, type II: Plan: -Hgb A1c 7.4 01/2021 -Lantus and NovoLog (9) DVT prophylaxis: Plan: -SQ heparin Admission and Anticipated Discharge Date Admission Date: February 02, 2021 History of Present Illness Chief Complaint: Referred by arch support technician Primary Care Provider: Luis Fernando Rojas MD 60-year-old female with PMH DM type II, CKD, hypothyroidism, MINISTERIO on CPAP, chronic diastolic CHF, SSS s/p pacemaker, HTN, history of endometrial cancer s/p hysterectomy, and other problems below who presents the ED by referral of outpatient arch support technician for worsening renal labs. Patient recently admitted to [facility] 01/18 through 01/26 for LAMAR on CKD requiring dialysis. Etiology of LAMAR was unclear however was felt to be possibly secondary to Ozempic and previous use of Metformin. Patient had a temporary hemodialysis catheter placed during admission and received 2 sessions of hemodialysis on 01/20 and 01/22. Catheter was subsequently removed before discharge. Creatinine on discharge 5.5. Outpatient labs on 01/31 show creatinine 6.1. Patient reports she continues to feel poorly. She reports she feels fatigued and has generalized itching. She reports progressive shortness of breath since her discharge from the hospital. Reports weight has been stable. Took 1 dose of as needed Lasix at home. Denies chest pain. Reports she continues to make urine. Denies dysuria. No li ghtheadedness, dizziness, diaphoresis, syncopal events. Denies abdominal pain, nausea, vomiting, diarrhea. No fevers or chills. In the ED, labs show creatinine 6.4. CXR is suggestive of mild pulmonary edema. Patient received Lasix 80 mg IV. Allergies Allergy/AdvReac Type Severity Reaction Status Date / Time CHIDI Inhibitors AdvReac Mild COUGH Verified 02/02/21 17:09 Home Medications Medication Instructions Recorded Confirmed Type atorvastatin 40 mg tablet 40 mg PO PM 07/05/18 02/02/21 History citalopram 40 mg tablet 40 mg PO QAM 07/05/18 02/02/21 History insulin glargine 100 unit/mL 23 unit SUBCUT QAM 07/05/18 02/02/21 History subcutaneous solution (Lantus U-100 Insulin) insulin lispro 100 unit/mL 1 sliding scale dose SUBCUT UD 07/05/18 02/02/21 History subcutaneous cartridge (Humalog U-100 Insulin) levothyroxine 100 mcg tablet 100 mcg PO QAM 07/05/18 02/02/21 History (Synthroid) pantoprazole 40 mg tablet,delayed 40 mg PO QAM 07/05/18 02/02/21 History release melatonin 10 mg tablet 10 mg PO HS PRN 01/18/21 02/02/21 History amlodipine 5 mg tablet (Norvasc) 5 mg PO QAM 30 Days #30 tab 01/26/21 02/02/21 Rx carvedilol 12.5 mg tablet 12.5 mg PO BID 30 Days #60 tab 01/26/21 02/02/21 Rx furosemide 40 mg tablet 40 mg PO MOWEFR PRN #12 tab 01/26/21 02/02/21 Rx hydralazine 50 mg tablet 100 mg PO TID 30 Days #180 tab 01/26/21 02/02/21 Rx vitamin B complex and vitamin C 1 cap PO QAM 30 Days #30 cap 01/26/21 02/02/21 Rx no.20-folic acid 1 mg capsule (Renal Caps) acetaminophen 500 mg tablet 100 mg PO Q6H PRN 02/02/21 02/02/21 History (Tylenol Extra Strength) calcium citrate 315 mg 1 tab PO BID 02/02/21 02/02/21 History calcium-vitamin D3 6.25 mcg (250 unit) tablet (Citracal + Vitamin D Maximum) diphenhydramine HCl 25 mg tablet 25 mg PO TID PRN 02/02/21 02/02/21 History (Benadryl Allergy) lorazepam 0.5 mg tablet 0.5 mg PO BID PRN 02/02/21 02/02/21 History Past Med/Surg History Medical History Chronic diastolic CHF (congestive heart failure) CKD (chronic kidney disease), stage III Depression Diabetes mellitus, type II Difficult airway for intubation Endometrial carcinoma (02/23/13) "S/P hysterectomy " GERD (gastroesophageal reflux disease) History of melanoma HLD (hyperlipidemia) HTN (hypertension) Hypothyroidism MDD (major depressive disorder) MINISTERIO on CPAP Pacemaker SSS (sick sinus syndrome) Pt admitted for elective pacemaker due to SSS. She underwent procedure without any complications. Monitored over night and discharged home. Surgical History H/O esophagogastroduodenoscopy H/O hernia repair History of cholecystectomy Hx of cardiac cath "2012, negative for CAD " Hx of gastric bypass S/P knee surgery S/P [place]-BSO Family History Other Colonic polyp GERD (gastroesophageal reflux disease) Social History Smoking Status: Never smoker Second Hand Exposure: No; Hx Alcohol Use: No Hx Substance Use: No Preferred Language: Montenegrin Communication Ability: Effective Lay Out Machine Operator Required: No Beliefs That Will Affect Care: None marital status: Current Living Situation: Spouse Current Living Situation Comment: LIVES WITH Other Information That Helps Us Care for You: No Feels Safe at Home: Yes Safety Concerns: Feels Safe At This Time Assistive Devices: None Review of Systems Review of Systems: ROS per HPI, all other systems reviewed and negative Physical Exam Physical Exam: Please refer to Dr. Salguero's addendum for physical exam Results & Data Results & Data ([facility]) Vital Signs (Past 12 Hours) Vital Signs Temp Pulse Pulse Resp BP BP Pulse Ox 02/02/21 18:23 37.1 C 86 18 145/83 H 96 02/02/21 18:13 85 02/02/21 15:00 72 22 148/65 H 02/02/21 14:58 70 18 114/69 98 02/02/21 14:56 98 02/02/21 14:30 77 19 114/69 98 02/02/21 14:18 75 29 H 126/66 98 02/02/21 13:36 36.7 C 73 20 149/65 H 98 Laboratory Results Short CBC 02/02/21 Range/Units 15:28 WBC 10.25 (4.8-10.8) K/uL Hgb 9.2 L (12.0-16.0) g/dL Hct 29.2 L (37-47) % Plt Count 261 (130-400) K/uL BMP 02/02/21 15:28 Sodium 134 L Potassium 5.1 Chloride 105 Carbon Dioxide 19 L BUN 78 H Creatinine 6.47 H* Glucose 159 H Calcium 9.0 Cardiac Enzymes 02/02/21 Range/Units 15:28 Troponin I < 0.015 (0-0.045) ng/ml Liver Function 02/02/21 Range/Units 15:28 Total Bilirubin 0.2 (0.2-1) mg/dl AST 40 H (15-37) U/L ALT 78 (12-78) U/L Alkaline Phosphatase 101 (45-117) U/L Albumin 3.3 L (3.4-5.0) gm/dl Urine 02/02/21 Range/Units 16:15 Urine Color Yellow Urine Appearance Clear (Clear) Urine pH 5.5 (4.5-7.5) Ur Specific [place] 1.008 (1.000-1.030) Urine Protein Trace H (Negative) Urine Glucose (UA) Negative (Negative) Diagnostic Findings Chest X-Ray 02/02/21 14:15 XR chest 1V portable HISTORY: weakness COMPARISON: Chest 01/20/2021. FINDINGS: The heart remains enlarged. There is perihilar interstitial/vascular thickening which has progressed. No pneumothorax. No pleural fusions. There is left-sided dual-chamber pacemaker. No new focal lung consolidations. IMPRESSION: Cardiomegaly with mild interstitial pulmonary edema. This has developed in the interval. ACT 112: Negative or not required by law. Electronically signed by: Kendell Toth M.D. 02/02/2021 2:39 PM Code Status & VTE Plan VTE Prophylaxis Plan VTE Prophylaxis will be ordered: Yes Supervising Physician Co-Signing Physician Notes Patient is a 60-year-old female with history of diabetes mellitus, CKD, sleep apnea, CHF and other medical problems presents on recommendations from her arch support technician for abnormal outpatient blood work. Patient was recently discharged from [facility] after being treated for acute kidney injury requiring temporary dialysis. Patient states having generalized weakness, generalized itching, intermittent nausea, dyspnea on exertion, intermittent diarrhea headache since last few days. She denies any weight gain. She has been following fluid restriction as advised. She denies any use of NSAIDs. She denies any chest pain, abdominal pain, flank pain, dysuria. Please review HPI for complete details of presentation. Physical Exam: Vitals signs as noted above General Appearance:Morbidly Obese, no apparent distress Head: normocephalic, Atraumatic Eyes: normal inspection, EOMI Neck: supple, Trachea midline Respiratory/Chest: Normal breath sounds, CTA, No accessory muscle use Cardiovascular: S1, S2, No murmur Abdomen/GI:Soft, Mild generalized tender, Bowel sounds present Extremities/Musculoskeletal:normal inspection, B/L LE edema, chronic venous stasis changes Neurologic/Psych:AAOX3, grossly no focal neurological deficits Skin: normal color, warm LAMAR on CKD III Volume overload Anemia of Chronic disease Renal USD: No hydronephrosis. Given Lasix 80mg once as recommended by Nephrology Nephrology consulted May need dialysis eventually if no improvement Avoid nephrotoxic agents as able Monitor Volume status I personally reviewed the record. Patient is interviewed and examined at bedside. Patient's care is coordinated with Joanne Morales LEGAL COUNSEL. Please refer to the documentation above for details of patient's presentation and for discussion of other issues. (1) HTN (hypertension) Hypertension type: unspecified Qualified Code(s): I10 - Essential (primary) hypertension
[2021-02-02] MEDS: carvediloL 12.5 MG TAB PO SCH (20:40)
[2021-02-02] MEDS: hydrALAZINE TAB 50 MG TAB PO SCH (20:40)
[2021-02-02] MEDS: CALCIUM CITRATE 950 MG TAB PO SCH (20:41)
[2021-02-02] MEDS: ATORVASTATIN 40 MG TAB PO SCH (20:41)
[2021-02-02] MEDS: INSULIN ASPART 100 UNITS/ML 3 ML PEN SC SCH (20:43)
--- NOTE | 2021-02-02 21:43 | Ultrasound Report ---
RENAL ULTRASOUND CLINICAL HISTORY: Acute kidney injury. COMPARISON STUDY: Renal ultrasound January 18, 2021. CT of the abdomen and pelvis October 31, 2017. TECHNIQUE: Sonography of the kidneys and the urinary bladder was performed. FINDINGS: There is no hydronephrosis. The right kidney measures 12.4 cm in maximal sagittal dimension and the left measures 12.7 cm. Mild bilateral renal cortical thinning is noted. No calculi or masses are identified. Bladder is suboptimally assessed on this examination given underdistention. IMPRESSION: No hydronephrosis. ACT 112: Negative or not required by law. Electronically signed by: Mihir Loaiza M.D. 02/02/2021 9:41 PM
[2021-02-02] MEDS: HEPARIN SOD 5,000 UNIT/0.5 ML VIAL SQ SCH (21:49)
[2021-02-02] MEDS: diphenhydrAMINE Capsule 25 MG CAP PO PRN (23:45)
[2021-02-03] MEDS: LEVOTHYROXINE SODIUM 100 MCG TABLET PO SCH (05:57)
[2021-02-03] MEDS: HEPARIN SOD 5,000 UNIT/0.5 ML VIAL SQ SCH ×3 (05:57→21:56)
[2021-02-03 06:16] LABS: Hematocrit (blood only) 26.8 % (37-47); Hemoglobin 8.5 g/dL (12.0-16.0); Mean Corpuscular Hgb Conc 31.7 g/dL (32-36); Mean Corpuscular Volume 94.7 fL (80-100); Mean Platelet Volume 10.2 fL (7.4-10.4); Platelet Count 238 K/uL (130-400); RDW Coefficient of Variation 12.9 % (11.5-14.5); Red Blood Count 2.83 M/uL (4.2-5.4); White Blood Count 10.15 K/uL (4.8-10.8)
[2021-02-03 06:34] LABS: BUN Creatinine Ratio 11.7 (10-20); Calcium 8.9 mg/dl (8.5-10.1); Creatinine Clr Calc Pharmacy 10.4 ml/min; Est GFR (African American) 6.5 ml/min; Est GFR (Non-African American) 5.7 ml/min; Phosphorus 6.4 mg/dl (2.5-4.9); Potassium 5.3 mmol/L (3.5-5.1)
[2021-02-03] MEDS: CALCIUM CITRATE 950 MG TAB PO SCH ×2 (08:15→20:26)
[2021-02-03] MEDS: amLODIPine BESYLATE 5 MG TAB PO SCH (08:15)
[2021-02-03] MEDS: carvediloL 12.5 MG TAB PO SCH ×2 (08:15→20:27)
[2021-02-03] MEDS: CITALOPRAM 40 MG TAB PO SCH (08:15)
[2021-02-03] MEDS: PANTOprazole 40 MG TAB PO SCH (08:16)
[2021-02-03] MEDS: NEPHROCAPS PO SCH (08:16)
[2021-02-03] MEDS: hydrALAZINE TAB 50 MG TAB PO SCH ×3 (08:16→20:26)
[2021-02-03] MEDS: INSULIN GLARGINE SOLOSTAR 100 UNITS/ML 3 ML PEN SQ SCH (08:21)
[2021-02-03] MEDS: INSULIN ASPART 100 UNITS/ML 3 ML PEN SC SCH ×4 (08:21→21:54)
[2021-02-03] MEDS ORDERED: ONDANSETRON INJ 2 MG/ML 2 ML VIAL IV PRN (08:40)
[2021-02-03] MEDS ORDERED: ONDANSETRON INJ 2 MG/ML 2 ML VIAL ONE (08:46)
--- NOTE | 2021-02-03 10:18 | Electrocardiogram Report ---
Test Reason : Blood Pressure : / mmHG Vent. Rate : 072 BPM Atrial Rate : 072 BPM P-R Int : 360 ms QRS Dur : 086 ms QT Int : 404 ms P-R-T Axes : 042 001 016 degrees QTc Int : 442 ms Sinus rhythm with 1st degree A-V block Poor R wave progression, consider anterior LA vs. lead placement vs. LVH Abnormal ECG When compared with ECG of 25-JAN-2021 18:39, Sinus rhythm has replaced Electronic atrial pacemaker Confirmed by Syd Villagran ([id number]) on 02/03/2021 10:18:09 AM Referred By: Meena Hassan Confirmed By:Syd Villagran
--- NOTE | 2021-02-03 10:27 | Hospitalist Progress Note ---
Date of Service February 03, 2021 Assessment & Plan (1) Acute kidney injury superimposed on CKD: Plan: Acute kidney injury on CKD III Volume overload Hyperkalemia: secondary to LAMAR Hyperphosphatemia Renal USD:No hydronephrosis. CXR:Cardiomegaly with mild interstitial pulmonary edema. This has developed in the interval. Cr:6.47>7.09 Potassium:5.1>5.3 Received IV lasix 80mg x1 Over nephrotoxic agents as able Monitor renal function closely Eventually need dialysis Nephrology consulted Renal/low potassium diet (2) Chronic diastolic CHF (congestive heart failure): Plan: Monitor volume status On Lasix as needed (3) HTN (hypertension): Plan: -BP stable continue amlodipine, carvedilol, hydralazine (4) Anemia: Plan: Anemia of Chronic disease Monitor CBC (5) SSS (sick sinus syndrome): Plan: Continue Coreg (6) Pacemaker: Plan: -No acute issues (7) Hypothyroidism: Plan: -Continue levothyroxine (8) Diabetes mellitus, type II: Plan: -Hgb A1c 7.4 01/2021 Continue Lantus and NovoLog Monitor BGs (9) DVT prophylaxis: Plan: SQ heparin Admission and Anticipated Discharge Date Admission Date: February 02, 2021 Subjective Patient is seen and examined at bedside States having nausea, tiredness and headache today Denies chest pain, shortness of breath, abdominal pain, dizziness Offers no other complaints Review of Systems Review of Systems: All systems reviewed & are unremarkable except as noted in Subjective Physical Exam Physical Exam: Physical Exam: Vitals signs as noted above General Appearance:Morbidly Obese, no apparent distress Head: normocephalic, Atraumatic Eyes: normal inspection, EOMI Neck: supple, Trachea midline Respiratory/Chest: Normal breath sounds, CTA, No accessory muscle use Cardiovascular: S1, S2, No murmur Abdomen/GI:Soft, Mild generalized tender, Bowel sounds present Extremities/Musculoskeletal:normal inspection, B/L LE edema, chronic venous stasis changes Neurologic/Psych:AAOX3, grossly no focal neurological deficits Skin: normal color, warm Results & Data Results & Data ([facility]) Vital Signs (Past 12 Hours) Vital Signs Temp Pulse Pulse Resp BP Pulse Ox 02/03/21 08:06 36.8 C 66 16 112/47 L 98 02/03/21 03:00 37 C 78 20 108/63 97 07/17/21 02:11 20 02/02/21 23:42 79 02/02/21 22:32 36.7 C 78 20 93/54 L 96 Laboratory Results Short CBC 02/02/21 02/03/21 Range/Units 15:28 05:53 WBC 10.25 10.15 (4.8-10.8) K/uL Hgb 9.2 L 8.5 L (12.0-16.0) g/dL Hct 29.2 L 26.8 L (37-47) % Plt Count 261 238 (130-400) K/uL BMP 02/02/21 02/03/21 15:28 05:53 Sodium 134 L 137 Potassium 5.1 5.3 H Chloride 105 110 H Carbon Dioxide 19 L 19 L BUN 78 H 83 H Creatinine 6.47 H* 7.09 H* D Glucose 159 H 151 H Calcium 9.0 8.9 Cardiac Enzymes 02/02/21 Range/Units 15:28 Troponin I < 0.015 (0-0.045) ng/ml Liver Function 02/02/21 Range/Units 15:28 Total Bilirubin 0.2 (0.2-1) mg/dl AST 40 H (15-37) U/L ALT 78 (12-78) U/L Alkaline Phosphatase 101 (45-117) U/L Albumin 3.3 L (3.4-5.0) gm/dl Urine 02/02/21 Range/Units 16:15 Urine Color Yellow Urine Appearance Clear (Clear) Urine pH 5.5 (4.5-7.5) Ur Specific [place] 1.008 (1.000-1.030) Urine Protein Trace H (Negative) Urine Glucose (UA) Negative (Negative) (1) HTN (hypertension) Hypertension type: unspecified Qualified Code(s): I10 - Essential (primary) hypertension
[2021-02-03] MEDS: diphenhydrAMINE Capsule 25 MG CAP PO PRN ×2 (12:24→20:26)
[2021-02-03] MEDS: PATIROMER CALCIUM SORBITEX 8.4 GM PACK PO SCH (14:25)
--- NOTE | 2021-02-03 15:03 | Consultation Report ---
DATE OF CONSULTATION: 02/03/2021. REASON FOR CONSULTATION: Acute renal failure. HISTORY OF PRESENT ILLNESS: The patient is a 60-year-old female with history of longstanding type 2 diabetes for 25+ years, on insulin, chronic kidney disease stage III, hypothyroidism, morbid obesity, obstructive sleep apnea on CPAP, chronic diastolic congestive heart failure, status post pacemaker, hypertension, history of endometrial cancer, status post hysterectomy and other medical problems, pre sented to the Emergency Department yesterday after the outpatient labs showed worsening kidney functi on. Her outpatient creatinine was higher than 6. The patient recently admitted to [facility] 01/18/2021 through 01/26/2021 for LAMAR on CKD requiring dialysis. Etiology of acute kidne y injury during that admission was somewhat inconclusive, but was likely related with some degree of ATN. She had 2 sessions of dialysis with a temporary catheter, which was removed prior to discharge. Creatinine on the day of discharge was 5.5, but was on the rising trend, 5 days later creatinine on the outpatient lab was 6.1 and this morning is even higher at 7.1. The patient continues to feel po tayler. She has a somewhat poor appetite, feeling weak, itchy and just low energy. She does have some orthopnea, but no major shortness of breath at rest, but she does have some on exertion. She has no t noticed any significant edema at this point. She was following fluid restriction of 1500 mL per da y as an outpatient and was not on any diuretics at this time. Since admission, she has received one d ose of Lasix. Her potassium this morning is also slightly high at 5.3. Urine with Lasix has been 14 50 mL. She is agreeable to do dialysis if she such need arise. Chest x-ray done shows mild pulmonary edema. Her hemodynamic status at this point is fairly normal with no oxygen requirement and good bl ood pressure. Allergy list reviewed. Home medication list was reviewed in detail and is as per the H and P. She was not taking Lasix at the time of admission. PAST MEDICAL AND SURGICAL HISTORY: As detailed in HPI. On top of that, she also has hyperlipidemia, hypertension, hypothyroidism, history of major depression, hernia repair, cholecystectomy, cardiac c atheterization, gastric bypass, knee surgery, total abdominal hysterectomy. FAMILY HISTORY: Positive for colon polyps, GERD. SOCIAL HISTORY: Never smoked. No alcohol. , lives with her spouse. REVIEW OF SYSTEMS: As detailed in HPI unless stated otherwise 12 systems reviewed and negative. PHYSICAL EXAMINATION: VITAL SIGNS: Blood pressure at this time is 125/73, pulse rate 63, temperature 36.9, 97% on room air . HEENT: Mucous membrane is moist. NECK: Supple. Cannot really assess jugular venous distension because of short obese neck. CHEST: Bilateral clear to auscultation. CARDIOVASCULAR: S1 and S2, regular. ABDOMEN: Soft, obese, nontender. EXTREMITIES: Shows trace edema could be related with obesity. SKIN: Shows no rashes. NEUROLOGIC: She is awake, alert, oriented x3, normal affect, pleasant and cooperative, following all commands. LABORATORY TEST: Was reviewed in extensive detail. Her baseline creatinine prior to all these episod es of renal failure was about 1.6-1.8 with subnephrotic range proteinuria during the previous admissi on and on the day of discharge, her creatinine was 5.5, but was on the rising trend for about 4 days, since then has continued to go up, this morning is 7.09, BUN is 83, bicarbonate is 19, potassium 5.3 , chloride 110, sodium 137, phosphorus 6.4, magnesium 2.0. Urine dipstick done yesterday shows trace protein, 5-10 epithelial cells, RBCs. Protein to creatinine ratio of 900 mg was done 2 weeks ago. Chest x-ray shows mild pulmonary edema. Renal ultrasound already done and shows no hydronephrosis. The patient has two kidneys, which were both normal appearing. ASSESSMENT AND PLAN: A 60-year-old female with history of longstanding diabetes for 25+ years on ins ulin, with a baseline chronic kidney disease stage III to stage IV, with a baseline creatinine of ruben und 1.6-1.8 now with worsening renal function. This admission is a continuation of the previous admi ssion. She had acute renal failure a few weeks back and even on the day of discharge, her creatinine was 5.5 and in a rising trend. She did require 2 sessions of dialysis during this recent admission. It is very likely she might need dialysis again, but does not need at this very moment. She is jen ing good amount of urine and made close to 1.5 liters of urine with just one dose of IV Lasix other t hay very slightly high potassium and slightly low bicarbonate. She does not appear to be in any mayi r electrolyte crisis at this time. Her volume status is tricky to measure. She appears to be on eva m air and lungs are clear, but she does have some pulmonary congestion on the chest x-ray and has a h istory of congestive heart failure and now with acute renal failure. She is at very high risk for de veloping pulmonary edema. Given this for today, I do not want to give her any IV fluids and I do not want to give her any Lasix either. We will continue to see where she equilibrates from her renal fu nction. It is worth noting that her creatinine has been rising now for 8 days even without Lasix. G iven the fairly rapid rising of renal function, most likely etiology is acute tubular necrosis, altho ugh acute interstitial nephritis is also a possibility. However, very unlikely will be doing a renal biopsy in a patient with 25+ years of diabetes. RECOMMENDATIONS: For today: 1. No Lasix no IV fluid. 2. Given slightly rising potassium, would give Patiromer 8.6 grams starting today. 3. Continue daily labs. 4. If her potassium is higher tomorrow, we will also add one dose of Kayexalate. 5. If she continue to get worse from renal standpoint, we will plan to have a tunneled dialysis cath eter directly on Friday and initiate dialysis again. The case was discussed with Dr. Salguero, [facility]. 6. We will also do BNP and 2D echocardiogram to further and more accurately assess her volume status , which is tricky to measure given her morbid obesity. Thank you very much for the consult. Job ID: [id number]
[2021-02-03] MEDS: ATORVASTATIN 40 MG TAB PO SCH (22:12)
[2021-02-03] MEDS: LORazepam 0.5 MG TAB PO PRN (22:15)
[2021-02-04] MEDS: HEPARIN SOD 5,000 UNIT/0.5 ML VIAL SQ SCH ×3 (06:03→21:26)
[2021-02-04] MEDS: LEVOTHYROXINE SODIUM 100 MCG TABLET PO SCH (06:04)
[2021-02-04 06:35] LABS: Hematocrit (blood only) 27.8 % (37-47); Hemoglobin 8.9 g/dL (12.0-16.0)
[2021-02-04 07:23] LABS: Calcium 9.2 mg/dl (8.5-10.1); Creatinine Clr Calc Pharmacy 10.2 ml/min; Est GFR (African American) 6.5 ml/min; Est GFR (Non-African American) 5.6 ml/min; Potassium 4.9 mmol/L (3.5-5.1)
[2021-02-04] MEDS: carvediloL 12.5 MG TAB PO SCH ×2 (07:51→20:00)
[2021-02-04] MEDS: amLODIPine BESYLATE 5 MG TAB PO SCH (07:51)
[2021-02-04] MEDS: NEPHROCAPS PO SCH (07:51)
[2021-02-04] MEDS: hydrALAZINE TAB 50 MG TAB PO SCH ×3 (07:51→20:01)
[2021-02-04] MEDS: CITALOPRAM 40 MG TAB PO SCH (07:51)
[2021-02-04] MEDS: CALCIUM CITRATE 950 MG TAB PO SCH ×2 (07:51→19:59)
[2021-02-04] MEDS: diphenhydrAMINE Capsule 25 MG CAP PO PRN ×2 (07:52→21:33)
[2021-02-04] MEDS: PANTOprazole 40 MG TAB PO SCH (07:52)
[2021-02-04] MEDS: INSULIN GLARGINE SOLOSTAR 100 UNITS/ML 3 ML PEN SQ SCH (08:18)
[2021-02-04] MEDS: INSULIN ASPART 100 UNITS/ML 3 ML PEN SC SCH ×4 (08:19→21:11)
[2021-02-04] MEDS: PATIROMER CALCIUM SORBITEX 8.4 GM PACK PO SCH (10:54)
--- NOTE | 2021-02-04 13:54 | Nephrology Progress Note ---
Date of Service February 04, 2021 Assessment & Plan Admission and Anticipated Discharge Date Admission Date: February 02, 2021 Subjective No new symptoms. She feels fine. Denies SOB, N,v,urine issues. Making urine. HEENT: Mucous membrane is moist. NECK: Supple. Cannot really assess jugular venous distension because of short obese neck. CHEST: Bilateral clear to auscultation. CARDIOVASCULAR: S1 and S2, regular. ABDOMEN: Soft, obese, nontender. EXTREMITIES: Shows trace edema could be related with obesity. SKIN: Shows no rashes. 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 LABORATORY TEST: Was reviewed in extensive detail. Her baseline creatinine prior to all these episodes of renal failure was about 1.6-1.8 with subnephrotic range proteinuria during the previous admission and on the day of discharge, her creatinine was 5.5, but was on the rising trend for about 4 days, since then has continued to go up, this morning is 7.09, BUN is 83, bicarbonate is 19, potassium 5.3, chloride 110, sodium 137, phosphorus 6.4, magnesium 2.0. Urine dipstick done yesterday shows trace protein, 5-10 epithelial cells, RBCs. Protein to creatinine ratio of 900 mg was done 2 weeks ago. Chest x-ray shows mild pulmonary edema. Renal ultrasound already done and shows no hydronephrosis. The patient has two kidneys, which were both normal appearing. Creat 7.14 today very very slightly higher ASSESSMENT AND PLAN: A 60-year-old female with history of longstanding diabetes for 25+ years on insulin, with a baseline chronic kidney disease stage III to stage IV, with a baseline creatinine of around 1.6-1.8 now with worsening renal function. This admission is a continuation of the previous admission. She had acute renal failure a few weeks back and even on the day of discharge, her creatinine was 5.5 and in a rising trend. She did require 2 sessions of dialysis during this recent admission. It is very likely she might need dialysis again, but does not need at this very moment. She is making good amount of urine and made close to 1.5 liters of urine with just one dose of IV Lasix other than very slightly high potassium and slightly low bicarbonate. She does not appear to be in any major electrolyte crisis at this time. Her volume status is tricky to measure. She appears to be on room air and lungs are clear, but she does have some pulmonary congestion on the chest x-ray and has a history of congestive heart failure and now with acute renal failure. She is at very high risk for developing pulmonary edema. Given this for today, I do not want to give her any IV fluids and I do not want to give her any Lasix either. We will continue to see where she equilibrates from her renal function. It is worth noting that her creatinine has been rising now for 8 days even without Lasix. Given the fairly rapid rising of renal function, most likely etiology is acute tubular necrosis, although acute interstitial nephritis is also a possibility. However, very unlikely will be doing a renal biopsy in a patient with 25+ years of diabetes. RECOMMENDATIONS: For today: 1. No Lasix no IV fluid. 2. Continue Patiromer 8.6 grams for now 3. Continue daily labs. 4. If she continue to get worse from renal standpoint, we will plan to have a tunneled dialysis catheter directly and initiate dialysis again. Very minimal rise from yesterday to today so I am slightly hopeful. Will ask Surgeon to see her tomorrow depending on labs and maybe Dialysis Cath on friday if no recovery. If creat plateus and/or drops will change the plan. The case was discussed with Dr. Salguero, hospitalist. 5 Reviewed BNP and 2D echocardiogram--no major CHF at this time. Results & Data ([facility]) Vital Signs (Past 12 Hours) Vital Signs Temp Pulse Pulse Resp BP Pulse Ox 02/04/21 11:22 36.7 C 68 16 137/72 97 02/04/21 08:00 36.9 C 75 16 130/68 97 02/04/21 06:21 71 02/04/21 03:00 36.6 C 72 18 126/63 97
[2021-02-04] MEDS ORDERED: PHARMACY GLYCEMIC MGMT CONSULT PRN (17:09)
[2021-02-04 17:15] LABS: Appearance Urine Clear (Clear); Bacteria Urine Automated Negative (Negative); Bilirubin Urine Negative (Negative); Blood Urine Negative (Negative); Color Urine Yellow; Epithelial Cell Urine Auto 20-30 /lpf (0-5); Glucose Urine UA Negative (Negative); Ketones Urine Negative (Negative); Leukocyte Esterase Urine Negative (Negative); Nitrite Urine Negative (Negative); Protein Urine 1+ (Negative); RBC Urine Automated 0-4 /hpf (0-4); Specific Gravity Urine 1.011 (1.000-1.030); Urobilinogen Urine Negative (Negative)
--- NOTE | 2021-02-04 17:26 | Hospitalist Progress Note ---
Date of Service February 04, 2021 Assessment & Plan (1) Acute kidney injury superimposed on CKD: Plan: Acute kidney injury on CKD III Volume overload Hyperkalemia: secondary to LAMAR Hyperphosphatemia Renal USD:No hydronephrosis. CXR:Cardiomegaly with mild interstitial pulmonary edema. This has developed in the interval. Cr:6.47>7.09>7.14 Potassium:5.1>5.3>4.9 Received IV lasix 80mg x1 Received Patiromer Calcium Avoid nephrotoxic agents as able Monitor renal function closely Appreciate Nephrology Input Renal/low potassium diet We will keep her n.p.o. after midnight for possible tunneled catheter placement tomorrow Chronic diastolic CHF (congestive heart failure): Monitor volume status Was on Lasix as needed HTN (hypertension): BP stable continue amlodipine, carvedilol, hydralazine Anemia: Anemia of Chronic disease Monitor CBC SSS (sick sinus syndrome): Continue Coreg Pacemaker: No acute issues Hypothyroidism: Continue levothyroxine Diabetes mellitus, type II: Hgb A1c 7.4 01/2021 Continue Lantus and NovoLog Monitor BGs DVT Px: SQ heparin Admission and Anticipated Discharge Date Admission Date: February 02, 2021 Subjective Patient is seen and examined at bedside States having restless leg today Diarrhea, headache resolved Generalized weakness improved Discussed with nephrology today Denies chest pain, shortness of breath, abdominal pain, dizziness Renal function continues to get worse Review of Systems Review of Systems: All systems reviewed & are unremarkable except as noted in Subjective Physical Exam Physical Exam: Physical Exam: Vitals signs as noted above General Appearance:Morbidly Obese, no apparent distress Head: normocephalic, Atraumatic Eyes: normal inspection, EOMI Neck: supple, Trachea midline Respiratory/Chest: Normal breath sounds, CTA, No accessory muscle use Cardiovascular: S1, S2, No murmur Abdomen/GI:Soft, Mild generalized tender, Bowel sounds present Extremities/Musculoskeletal:normal inspection, B/L LE edema, chronic venous stasis changes Neurologic/Psych:AAOX3, grossly no focal neurological deficits Skin: normal color, warm Results & Data Results & Data ([facility]) Vital Signs (Past 12 Hours) Vital Signs Temp Pulse Pulse Resp BP Pulse Ox 02/04/21 14:31 66 02/04/21 11:22 36.7 C 68 16 137/72 97 02/04/21 08:00 36.9 C 75 16 130/68 97 02/04/21 06:21 71 Laboratory Results Short CBC 02/04/21 Range/Units 05:56 Hgb 8.9 L (12.0-16.0) g/dL Hct 27.8 L (37-47) % BMP 02/04/21 05:56 Sodium 135 L Potassium 4.9 Chloride 107 Carbon Dioxide 19 L BUN 86 H Creatinine 7.14 H* Glucose 169 H Calcium 9.2 Urine 02/04/21 Range/Units 17:00 Urine Color Yellow Urine Appearance Clear (Clear) Urine pH 5.0 (4.5-7.5) Ur Specific [place] 1.011 (1.000-1.030) Urine Protein 1+ H (Negative) Urine Glucose (UA) Negative (Negative)
[2021-02-04] MEDS ORDERED: INSULIN GLARGINE SOLOSTAR 100 UNITS/ML 3 ML PEN SQ ONE (17:30)
[2021-02-04] MEDS ORDERED: INSULIN HUMAN REGULAR PER UNIT 8 UNITS in SYRINGE 7.92 ML IV ONE (17:30)
[2021-02-04 17:48] LABS: Creatinine Urine Random 58.5 mg/dl; Protein Creatinine Ratio Urine 0.6 (0-0.2); Total Protein Urine Random 36.2 mg/dl (0-11.9)
[2021-02-04] MEDS: ATORVASTATIN 40 MG TAB PO SCH (19:59)
[2021-02-04] MEDS: GABAPENTIN 100 MG CAP PO SCH (20:01)
[2021-02-05] MEDS ORDERED: Nursing to Pharmacy Communication SCH ×2 (05:45→22:45)
[2021-02-05] MEDS: INSULIN ASPART 100 UNITS/ML 3 ML PEN SC SCH ×5 (06:09→21:30)
[2021-02-05] MEDS: LEVOTHYROXINE SODIUM 100 MCG TABLET PO SCH (06:11)
[2021-02-05] MEDS: HEPARIN SOD 5,000 UNIT/0.5 ML VIAL SQ SCH ×3 (06:11→21:34)
[2021-02-05] MEDS: PATIROMER CALCIUM SORBITEX 8.4 GM PACK PO SCH (08:33)
[2021-02-05] MEDS: NEPHROCAPS PO SCH (08:34)
[2021-02-05] MEDS: hydrALAZINE TAB 50 MG TAB PO SCH ×3 (08:34→20:46)
[2021-02-05] MEDS: carvediloL 12.5 MG TAB PO SCH ×2 (08:35→20:48)
[2021-02-05] MEDS: CITALOPRAM 40 MG TAB PO SCH (08:35)
[2021-02-05] MEDS: PANTOprazole 40 MG TAB PO SCH (08:35)
[2021-02-05] MEDS: amLODIPine BESYLATE 5 MG TAB PO SCH (08:36)
[2021-02-05] MEDS: CALCIUM CITRATE 950 MG TAB PO SCH ×2 (08:36→20:47)
[2021-02-05 09:46] LABS: Hematocrit (blood only) 29.3 % (37-47); Hemoglobin 9.3 g/dL (12.0-16.0)
[2021-02-05 10:27] LABS: Calcium 9.5 mg/dl (8.5-10.1); Creatinine Clr Calc Pharmacy 10.2 ml/min; Est GFR (African American) 6.4 ml/min; Est GFR (Non-African American) 5.5 ml/min; Potassium 4.9 mmol/L (3.5-5.1)
--- NOTE | 2021-02-05 11:23 | Nephrology Progress Note ---
Date of Service February 05, 2021 Assessment & Plan Admission and Anticipated Discharge Date Admission Date: February 02, 2021 Subjective No new symptoms. She feels fine. Denies SOB, N,v,urine issues. Making urine. HEENT: Mucous membrane is moist. NECK: Supple. Cannot really assess jugular venous distension because of short obese neck. CHEST: Bilateral clear to auscultation. CARDIOVASCULAR: S1 and S2, regular. ABDOMEN: Soft, obese, nontender. EXTREMITIES: Shows trace edema could be related with obesity. SKIN: Shows no rashes. 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 LABORATORY TEST: Was reviewed in extensive detail. Her baseline creatinine prior to all these episodes of renal failure was about 1.6-1.8 with subnephrotic range proteinuria during the previous admission and on the day of discharge, her creatinine was 5.5, but was on the rising trend for about 4 days, since then has continued to go up, this morning is 7.21, BUN is 94, Creat 7.21 today very very slightly higher ASSESSMENT AND PLAN: A 60-year-old female with history of longstanding diabetes for 25+ years on insulin, with a baseline chronic kidney disease stage III to stage IV, with a baseline creatinine of around 1.6-1.8 now with worsening renal function. This admission is a continuation of the previous admission. She had acute renal failure a few weeks back and even on the day of discharge, her creatinine was 5.5 and in a rising trend. She did require 2 sessions of dialysis during this recent admission. It is very likely she might need dial ysis again, but does not need at this very moment. She is making good amount of urine and made close to 1.5 liters of urine with just one dose of IV Lasix other than very slightly high potassium and slightly low bicarbonate. She does not appear to be in any major electrolyte crisis at this time. Her volume status is tricky to measure. She appears to be on room air and lungs are clear, but she does have some pulmonary congestion on the chest x-ray and has a history of congestive heart failure and now with acute renal failure. She is at very high risk for developing pulmonary edema. Given this for today, I do not want to give her any IV fluids and I do not want to give her any Lasix either. We will continue to see where she equilibrates from her renal function. It is worth noting that her creatinine has been rising now for 8 days even without Lasix. Given the fairly rapid rising of renal function, most likely etiology is acute tubular necrosis, although acute interstitial nephritis is also a possibility. However, very unlikely will be doing a renal biopsy in a patient with 25+ years of diabetes. RECOMMENDATIONS: For today: 1. No Lasix no IV fluid. 2. Continue Patiromer 8.6 grams for now 3. Continue daily labs. 4. If she continue to get worse from renal standpoint, we will plan to have a tunneled dialysis catheter directly and initiate dialysis again. Still very minimal rise from yesterday to today so I am slightly hopeful. Will ask Surgeon to see her tomorrow depending on labs and maybe Dialysis Cath on Friday if no recovery. If creat plateus and/or drops will change the plan. The case was discussed with Dr. Salguero, hospitalist. BUN is still under 100 and no symptoms and no lytes/fluid issues. 5 Reviewed BNP and 2D echocardiogram--no major CHF at this time. Results & Data ([facility]) Vital Signs (Past 12 Hours) Vital Signs Temp Pulse Pulse Resp BP Pulse Ox 02/05/21 08:34 36.9 C 77 20 114/41 L 97 02/05/21 03:10 36.6 C 78 20 108/59 L 98 02/05/21 01:21 71 02/05/21 00:20 36.8 C 73 17 103/57 L 96
[2021-02-05] MEDS ORDERED: INSULIN GLARGINE SOLOSTAR 100 UNITS/ML 3 ML PEN SC ONE (12:15)
--- NOTE | 2021-02-05 13:16 | Pharmacy Report ---
Pharmacy Glycemic Short Note 2 - Date of Service February 05, 2021 - Glycemic Short BSG Results (Last 24 hours): 02/04/21 02/04/21 02/04/21 17:02 17:03 20:42 Glucose POC Glucose 301 H* 304 H* 179 H 02/05/21 02/05/21 02/05/21 06:06 07:40 09:22 Glucose 119 H POC Glucose 141 H 119 H 02/05/21 11:38 Glucose POC Glucose 156 H OUTPATIENT ANTIDIABETIC REGIMEN: * Lantus 23 units qAM + Humalog (carbohydrate ratio of 4) * HbA1C = 7.4% (02/04/21) ASSESSMENT: * Ms Irvin is a 60 y/o F with a PMH of T2DM on insulin presenting with LAMAR on CKD. There were plans for a tunneled dialysis catheter placement today but that has been placed on hold as patient has no indication for dialysis. To follow kidney function currently. * BSGs on 02/04/21 were [phone] mg/dL. Patient received 36 units of basal (Lantus 18 units BID) plus 35 units of basal for total of 71 units of insulin. * Fasting this morning was 119 mg/dL. Patient was originally NPO so no Lantus given (100 point difference between 02/04 and 02/05 fasting). Diet re-ordered at lunch. Will order conservative Lantus dose due to continued kidney injury. Overnight checks ordered in case additional basal needed. * Novolog weight-based stress of 2-3 ordered. PLAN FOR INPATIENT GLYCEMIC CONTROL: * Basal insulin * Lantus 20 units SQ x 1 then reassess * Bolus insulin * NovoLog per scale ACHS or Q6hrs while NPO * Goal Range: Low 110 mg/dL - High 140 mg/dL * Correction Factor: 20 mg/dL/unit * Nutritional / Prandial insulin per carb ratio of 1 unit per 6 grams CHO consumed PLAN FOR DISCHARGE: * tbd
--- NOTE | 2021-02-05 17:22 | Hospitalist Progress Note ---
Date of Service February 05, 2021 Assessment & Plan (1) Acute kidney injury superimposed on CKD: Plan: Acute kidney injury on CKD III Volume overload Hyperkalemia: secondary to LAMAR Hyperphosphatemia Renal USD:No hydronephrosis. CXR:Cardiomegaly with mild interstitial pulmonary edema. This has developed in the interval. Cr:6.47>7.09>7.14>7.2 Potassium:5.1>5.3>4.9 Received IV lasix 80mg x1 Continue Patiromer Calcium Avoid nephrotoxic agents as able Monitor renal function closely Appreciate Nephrology Input Renal/low potassium diet Plan to consult Vascular surgery for HD cath placement if renal function continues to worsen Chronic diastolic CHF (congestive heart failure): Monitor volume status Was on Lasix as needed HTN (hypertension): BP stable continue amlodipine, carvedilol, hydralazine Anemia: Anemia of Chronic disease Monitor CBC SSS (sick sinus syndrome): Continue Coreg Pacemaker: No acute issues Hypothyroidism: Continue levothyroxine Diabetes mellitus, type II: Hgb A1c 7.4 01/2021 Continue Lantus and NovoLog Monitor BGs DVT Px: SQ heparin Admission and Anticipated Discharge Date Admission Date: February 02, 2021 Subjective Patient is seen and examined at bedside States having generalized weakness Restless leg better Discussed with neurology today No other complaints Denies chest pain, shortness of breath, abdominal pain, dizziness Reports generalized itching Review of Systems Review of Systems: All systems reviewed & are unremarkable except as noted in Subjective Physical Exam Physical Exam: Physical Exam: Vitals signs as noted above General Appearance:Morbidly Obese, no apparent distress Head: normocephalic, Atraumatic Eyes: normal inspection, EOMI Neck: supple, Trachea midline Respiratory/Chest: Normal breath sounds, CTA, No accessory muscle use Cardiovascular: S1, S2, No murmur Abdomen/GI:Soft, Mild generalized tender, Bowel sounds present Extremities/Musculoskeletal:normal inspection, B/L LE edema, chronic venous stasis changes Neurologic/Psych:AAOX3, grossly no focal neurological deficits Skin: normal color, warm Results & Data Results & Data ([facility]) Vital Signs (Past 12 Hours) Vital Signs Temp Pulse Pulse Resp BP Pulse Ox 02/05/21 15:57 36.8 C 66 20 149/70 H 96 02/05/21 14:58 60 02/05/21 11:43 37.5 C 61 19 106/57 L 95 02/05/21 08:34 36.9 C 77 20 114/41 L 97 Laboratory Results Short CBC 02/05/21 Range/Units 09:22 Hgb 9.3 L (12.0-16.0) g/dL Hct 29.3 L (37-47) % BMP 02/05/21 09:22 Sodium 137 Potassium 4.9 Chloride 107 Carbon Dioxide 19 L BUN 94 H Creatinine 7.21 H* Glucose 119 H Calcium 9.5
[2021-02-05] MEDS: GABAPENTIN 100 MG CAP PO SCH (20:46)
[2021-02-05] MEDS: ATORVASTATIN 40 MG TAB PO SCH (20:46)
[2021-02-05] MEDS: diphenhydrAMINE Capsule 25 MG CAP PO PRN (21:34)
[2021-02-06] MEDS: INSULIN ASPART 100 UNITS/ML 3 ML PEN SC SCH ×6 (00:26→20:40)
[2021-02-06] MEDS: LORazepam 0.5 MG TAB PO PRN (02:45)
[2021-02-06] MEDS: LEVOTHYROXINE SODIUM 100 MCG TABLET PO SCH (06:14)
[2021-02-06] MEDS: HEPARIN SOD 5,000 UNIT/0.5 ML VIAL SQ SCH ×3 (06:14→21:40)
[2021-02-06 07:34] LABS: Hematocrit (blood only) 26.4 % (37-47); Hemoglobin 8.4 g/dL (12.0-16.0)
[2021-02-06] MEDS: amLODIPine BESYLATE 5 MG TAB PO SCH (07:38)
[2021-02-06] MEDS: CALCIUM CITRATE 950 MG TAB PO SCH ×2 (07:39→19:49)
[2021-02-06] MEDS: hydrALAZINE TAB 50 MG TAB PO SCH ×3 (07:39→19:55)
[2021-02-06] MEDS: carvediloL 12.5 MG TAB PO SCH ×2 (07:39→19:56)
[2021-02-06] MEDS: PANTOprazole 40 MG TAB PO SCH (07:39)
[2021-02-06] MEDS: CITALOPRAM 40 MG TAB PO SCH (07:39)
[2021-02-06] MEDS: NEPHROCAPS PO SCH (07:40)
[2021-02-06] MEDS: PATIROMER CALCIUM SORBITEX 8.4 GM PACK PO SCH (07:45)
[2021-02-06 08:26] LABS: BUN Creatinine Ratio 12.6 (10-20); Calcium 9.3 mg/dl (8.5-10.1); Creatinine Clr Calc Pharmacy 9.6 ml/min; Est GFR (Non-African American) 5.2 ml/min
[2021-02-06] MEDS: diphenhydrAMINE Capsule 25 MG CAP PO PRN ×2 (08:41→21:45)
--- NOTE | 2021-02-06 08:56 | Nephrology Progress Note ---
Date of Service February 06, 2021 Assessment & Plan Admission and Anticipated Discharge Date Admission Date: February 02, 2021 Subjective No new symptoms. She feels fine. Denies SOB, N,v,urine issues. Making urine. HEENT: Mucous membrane is moist. NECK: Supple. Cannot really assess jugular venous distension because of short obese neck. CHEST: Bilateral clear to auscultation. CARDIOVASCULAR: S1 and S2, regular. ABDOMEN: Soft, obese, nontender. EXTREMITIES: Shows trace edema could be related with obesity. SKIN: Shows no rashes. 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 LABORATORY TEST: Was reviewed in extensive detail. Her baseline creatinine prior to all these episodes of renal failure was about 1.6-1.8 with subnephrotic range proteinuria during the previous admission and on the day of discharge, her creatinine was 5.5, but was on the rising trend for about 4 days, since then has continued to go up, this morning is 7.61, BUN is 96 ASSESSMENT AND PLAN: A 60-year-old female with history of longstanding diabetes for 25+ years on insulin, with a baseline chronic kidney disease stage III to stage IV, with a baseline creatinine of around 1.6-1.8 now with worsening renal function. This admission is a continuation of the previous admission. She had acute renal failure a few weeks back and even on the day of discharge, her creatinine was 5.5 and in a rising trend. She did require 2 sessions of dialysis during this recent admission. It is very likely she might need dialysis again, but does not need at this very moment. Given the fairly rapid rising of renal function, most likely etiology is acute tubular necrosis, although acute interstitial nephritis is also a possibility. However, very unlikely will be doing a renal biopsy in an obese patient with 25+ years of diabetes and pre existing CKD with proteinuria RECOMMENDATIONS: For today: 1. No Lasix no IV fluid. 2. Continue Patiromer 8.6 grams for now 3. Continue daily labs. 4. At this point we will plan to have a tunneled dialysis catheter directly and initiate dialysis again. has more Itching and feeling very cold--could be uremic Symptoms. Will ask Surgeon to see her today and maybe Dialysis Cath on Friday. The case was discussed with Dr. Salguero, hospitalist. 5 patient is agreeable. We discussed about outpt dialysis. Start director case management to work on this. She wanted to do at [facility] as it is open 6 days a week. Results & Data ([facility]) Vital Signs (Past 12 Hours) Vital Signs Temp Pulse Pulse Resp BP Pulse Ox 02/06/21 07:52 36.9 C 72 18 146/70 H 97 02/06/21 07:22 71 02/06/21 03:39 36.8 C 68 18 119/69 98 02/05/21 22:45 56 L 02/05/21 22:33 37.0 C 85 18 165/71 H 97
[2021-02-06] MEDS ORDERED: INSULIN GLARGINE SOLOSTAR 100 UNITS/ML 3 ML PEN SC ONE (09:00)
--- NOTE | 2021-02-06 11:43 | Consultation ---
Date of Consultation February 06, 2021 Assessment & Plan (1) Acute kidney injury superimposed on CKD: Pt with worsening renal fxn and now requiring access for HD. Planning on permcath insertion in OR tomorrow by Dr Tejeda. Procedure discussed with pt, she is agreeable. Patient was seen, examined, and chart reviewed. Agree with exam and treatment plan of the Vascular PA. History of Present Illness Reason for Consultation: LAMAR, need permcath Attending Physician: Perry Salguero MD History of Present Illness 60 yo f with hx of DMII, CKD, sick sinus syndrome s/p pacemaker, HTN, MINISTERIO, hypothyroidism, CHF, hyperlipidemia, depression, admitted with LAMAR, seen in consultation today for permcath insertion for HD. Pt was recently admitted for LAMAR and underwent HD through temporary catheter approx 2 weeks ago. Her Cr has continued to rise after discharge, and she was advised to come back to [facility]. Pt admits feeling cold, and generalized pruritis, in addition to fatigue and BLE edema and mild OLSON. Pt denies fever, chest pain, SOB at rest, abd pain, N/V, rest pain, claudication, ulcerations, other complaints. Allergies Allergy/AdvReac Type Severity Reaction Status Date / Time CHIDI Inhibitors AdvReac Mild COUGH Verified 02/02/21 17:09 Home Medications Medication Instructions Recorded Confirmed Type atorvastatin 40 mg tablet 40 mg PO PM 07/05/18 02/02/21 History citalopram 40 mg tablet 40 mg PO QAM 07/05/18 02/02/21 History insulin glargine 100 unit/mL 23 unit SUBCUT QAM 07/05/18 02/02/21 History subcutaneous solution (Lantus U-100 Insulin) insulin lispro 100 unit/mL 1 sliding scale dose SUBCUT UD 07/05/18 02/02/21 History subcutaneous cartridge (Humalog U-100 Insulin) levothyroxine 100 mcg tablet 100 mcg PO QAM 07/05/18 02/02/21 History (Synthroid) pantoprazole 40 mg tablet,delayed 40 mg PO QAM 07/05/18 02/02/21 History release melatonin 10 mg tablet 10 mg PO HS PRN 01/18/21 02/02/21 History amlodipine 5 mg tablet (Norvasc) 5 mg PO QAM 30 Days #30 tab 01/26/21 02/02/21 Rx carvedilol 12.5 mg tablet 12.5 mg PO BID 30 Days #60 tab 01/26/21 02/02/21 Rx furosemide 40 mg tablet 40 mg PO MOWEFR PRN #12 tab 01/26/21 02/02/21 Rx hydralazine 50 mg tablet 100 mg PO TID 30 Days #180 tab 01/26/21 02/02/21 Rx vitamin B complex and vitamin C 1 cap PO QAM 30 Days #30 cap 01/26/21 02/02/21 Rx no.20-folic acid 1 mg capsule (Renal Caps) acetaminophen 500 mg tablet 100 mg PO Q6H PRN 02/02/21 02/02/21 History (Tylenol Extra Strength) calcium citrate 315 mg 1 tab PO BID 02/02/21 02/02/21 History calcium-vitamin D3 6.25 mcg (250 unit) tablet (Citracal + Vitamin D Maximum) diphenhydramine HCl 25 mg tablet 25 mg PO TID PRN 02/02/21 02/02/21 History (Benadryl Allergy) lorazepam 0.5 mg tablet 0.5 mg PO BID PRN 02/02/21 02/02/21 History Patient History Medical History Chronic diastolic CHF (congestive heart failure) CKD (chronic kidney disease), stage III Depression Diabetes mellitus, type II Difficult airway for intubation Endometrial carcinoma (02/23/13) "S/P hysterectomy " GERD (gastroesophageal reflux disease) History of melanoma HLD (hyperlipidemia) HTN (hypertension) Hypothyroidism MDD (major depressive disorder) MINISTERIO on CPAP Pacemaker SSS (sick sinus syndrome) Pt admitted for elective pacemaker due to SSS. She underwent procedure without any complications. Monitored over night and discharged home. Surgical History H/O esophagogastroduodenoscopy H/O hernia repair History of cholecystectomy Hx of cardiac cath "2012, negative for CAD " Hx of gastric bypass S/P knee surgery S/P [place]-BSO Family History Other Colonic polyp GERD (gastroesophageal reflux disease) Social History Smoking Status: Never smoker Second Hand Exposure: No; Hx Alcohol Use: No Hx Substance Use: No Preferred Language: Mohawk Communication Ability: Effective Thread Grinder Required: No Beliefs That Will Affect Care: None marital status: Current Living Situation: Spouse Current Living Situation Comment: LIVES WITH Other Information That Helps Us Care for You: No Feels Safe at Home: Yes Safety Concerns: Feels Safe At This Time Assistive Devices: Glasses Review of Systems Review of Systems: 14 systems reviewed, negative aside from HPI. Physical Exam Constitutional: well developed, + obese, cooperative and comfortable; not in distress Eyes: PERRL, conjunctivae normal, anicteric sclerae ENMT: Ears: no hearing impairment Neck: trachea midline Respiratory: normal respiratory effort Auscultation: + crackles (occasional basilar, otherwise clear) Cardiovascular: Rate/Rhythm: regular rate and regular rhythm Vessels: femoral pulses present, posterior tibial pulses present, dorsalis pedis pulses present and radial pulses present; + abnormal peripheral pulses Extremities: normal capillary refill and + edema Gastrointestinal (Abdomen): Inspection/Auscultation: abdomen normal to inspection Percussion/Palpation: abdomen soft; abdomen nontender and no guarding Musculoskeletal: no cyanosis or clubbing, extremities motor strength 5/5 Skin: no rashes, warm and dry Neurologic: moves all extremities; no focal motor deficits and not confused Psychiatric: A+Ox3, euthymic affect Results & Data ([facility]) Vital Signs (Past 12 Hours) Vital Signs Temp Pulse Pulse Resp BP Pulse Ox 02/06/21 07:52 36.9 C 72 18 146/70 H 97 02/06/21 07:22 71 02/06/21 03:39 36.8 C 68 18 119/69 98
--- NOTE | 2021-02-06 15:07 | Pharmacy Report ---
Pharmacy Glycemic Short Note 2 - Date of Service February 06, 2021 - Glycemic Short BSG Results (Last 24 hours): 02/05/21 02/05/21 02/06/21 16:29 20:39 00:24 Glucose POC Glucose 204 H 181 H 158 H 02/06/21 02/06/21 02/06/21 03:40 07:19 07:38 Glucose 139 H POC Glucose 127 H 157 H 02/06/21 11:32 Glucose POC Glucose 217 H OUTPATIENT ANTIDIABETIC REGIMEN: * Lantus 23 units qAM + Humalog (carbohydrate ratio of 4) * HbA1C = 7.4% (02/04/21) ASSESSMENT: * BSGs yesterday were [phone] mg/dL * Patient received 40 units of insulin (20 units of basal and 20 units of bolus). * Fasting today is 157 mg/dL. * Will start home dose of Lantus 23 units. Dose daily to monitor any accumulation due to LAMAR. * Tighten Novolog as BSGs trend upwards. background * Ms Irvin is a 60 y/o F with a PMH of T2DM on insulin presenting with LAMAR on CKD. There were plans for a tunneled dialysis catheter placement today but that has been placed on hold as patient has no indication for dialysis. To follow kidney function currently. * BSGs on 02/04/21 were [phone] mg/dL. Patient received 36 units of basal (Lantus 18 units BID) plus 35 units of basal for total of 71 units of insulin. * Fasting this morning was 119 mg/dL. Patient was originally NPO so no Lantus given (100 point difference between 02/04 and 02/05 fasting). Diet re-ordered at lunch. Will order conservative Lantus dose due to continued kidney injury. Overnight checks ordered in case additional basal needed. * Novolog weight-based stress of 2-3 ordered. PLAN FOR INPATIENT GLYCEMIC CONTROL: * Basal insulin * Lantus 23 units SQ x 1 then reassess * Bolus insulin * NovoLog per scale ACHS or Q6hrs while NPO * Goal Range: Low 110 mg/dL - High 140 mg/dL * Correction Factor: 20 mg/dL/unit * Nutritional / Prandial insulin per carb ratio of 1 unit per 5 grams CHO consumed PLAN FOR DISCHARGE: * tbd
--- NOTE | 2021-02-06 16:53 | Hospitalist Progress Note ---
Date of Service February 06, 2021 Assessment & Plan (1) Acute kidney injury superimposed on CKD: Plan: Acute kidney injury on CKD III Volume overload Hyperkalemia: secondary to LAMAR Hyperphosphatemia Renal USD:No hydronephrosis. CXR:Cardiomegaly with mild interstitial pulmonary edema. This has developed in the interval. Cr:6.47>7.09>7.14>7.2 Potassium:5.1>5.3>4.9>5.0 Received IV lasix 80mg x1 Continue Patiromer Calcium Avoid nephrotoxic agents as able Monitor renal function closely Appreciate Nephrology Input Renal/low potassium diet Consulted Vascular surgery for HD cath placement tomorrow Chronic diastolic CHF (congestive heart failure): Monitor volume status Was on Lasix as needed HTN (hypertension): BP stable continue amlodipine, carvedilol, hydralazine Anemia: Anemia of Chronic disease Monitor CBC Hemoglobin drop likely dilutional secondary to volume overload No indication for transfusion currently Denies any bleeding issues SSS (sick sinus syndrome): Continue Coreg Pacemaker: No acute issues Hypothyroidism: Continue levothyroxine Diabetes mellitus, type II: Hgb A1c 7.4 01/2021 Continue Lantus and NovoLog Monitor BGs DVT Px: SQ heparin Admission and Anticipated Discharge Date Admission Date: February 02, 2021 Subjective Patient is seen and examined at bedside States having generalized itching Renal function continues to worsen Discussed with nephrology today Plan for tunneled catheter placement tomorrow Vascular surgery consulted Denies chest pain, shortness of breath, abdominal pain, dizziness Review of Systems Review of Systems: All systems reviewed & are unremarkable except as noted in Subjective Physical Exam Physical Exam: Physical Exam: Vitals signs as noted above General Appearance:Morbidly Obese, no apparent distress Head: normocephalic, Atraumatic Eyes: normal inspection, EOMI Neck: supple, Trachea midline Respiratory/Chest: Normal breath sounds, CTA, No accessory muscle use Cardiovascular: S1, S2, No murmur Abdomen/GI:Soft, Mild generalized tender, Bowel sounds present Extremities/Musculoskeletal:normal inspection, B/L LE edema, chronic venous stasis changes Neurologic/Psych:AAOX3, grossly no focal neurological deficits Skin: normal color, warm Results & Data Results & Data ([facility]) Vital Signs (Past 12 Hours) Vital Signs Temp Pulse Pulse Resp BP BP Pulse Ox 02/06/21 15:23 77 02/06/21 11:52 36.8 C 80 20 149/55 H 97 02/06/21 07:52 36.9 C 72 18 146/70 H 97 02/06/21 07:22 71 Laboratory Results Short CBC 02/06/21 Range/Units 07:19 Hgb 8.4 L (12.0-16.0) g/dL Hct 26.4 L (37-47) % BMP 02/06/21 07:19 Sodium 136 Potassium 5.0 Chloride 108 H Carbon Dioxide 19 L BUN 96 H Creatinine 7.61 H* D Glucose 139 H Calcium 9.3
[2021-02-06] MEDS: DOCUSATE SODIUM 100 MG CAP PO SCH ×2 (18:41→20:45)
[2021-02-06] MEDS: GABAPENTIN 100 MG CAP PO SCH (19:49)
[2021-02-06] MEDS: ATORVASTATIN 40 MG TAB PO SCH (19:55)
[2021-02-06] MEDS ORDERED: Nursing to Pharmacy Communication SCH (23:00)
[2021-02-06] MEDS: ACETAMINOPHEN 325 MG TAB PO PRN (23:13)
[2021-02-07] MEDS: INSULIN ASPART 100 UNITS/ML 3 ML PEN SC SCH ×5 (00:42→20:08)
[2021-02-07] MEDS: LEVOTHYROXINE SODIUM 100 MCG TABLET PO SCH (06:18)
[2021-02-07] MEDS: HEPARIN SOD 5,000 UNIT/0.5 ML VIAL SQ SCH ×3 (06:18→20:08)
[2021-02-07] MEDS ORDERED: INSULIN GLARGINE SOLOSTAR 100 UNITS/ML 3 ML PEN SC ONE (08:00)
[2021-02-07 08:11] LABS: Hematocrit (blood only) 26.3 % (37-47); Hemoglobin 8.3 g/dL (12.0-16.0); Mean Corpuscular Hemoglobin 29.4 pg (25-34); Mean Corpuscular Hgb Conc 31.6 g/dL (32-36); Mean Corpuscular Volume 93.3 fL (80-100); Platelet Count 254 K/uL (130-400); RDW Coefficient of Variation 12.8 % (11.5-14.5); RDW Standard Deviation 43.9 fL (36.4-46.3); Red Blood Count 2.82 M/uL (4.2-5.4); White Blood Count 8.48 K/uL (4.8-10.8)
[2021-02-07] MEDS: CITALOPRAM 40 MG TAB PO SCH (08:19)
[2021-02-07] MEDS: DOCUSATE SODIUM 100 MG CAP PO SCH ×2 (08:19→20:05)
[2021-02-07] MEDS: PATIROMER CALCIUM SORBITEX 8.4 GM PACK PO SCH (08:19)
[2021-02-07] MEDS: PANTOprazole 40 MG TAB PO SCH (08:20)
[2021-02-07] MEDS: CALCIUM CITRATE 950 MG TAB PO SCH ×2 (08:20→20:05)
[2021-02-07] MEDS: amLODIPine BESYLATE 5 MG TAB PO SCH (08:20)
[2021-02-07] MEDS: NEPHROCAPS PO SCH (08:20)
[2021-02-07] MEDS: carvediloL 12.5 MG TAB PO SCH ×2 (08:20→20:06)
[2021-02-07] MEDS: hydrALAZINE TAB 50 MG TAB PO SCH ×3 (08:20→20:05)
[2021-02-07 08:58] LABS: BUN Creatinine Ratio 12.4 (10-20); Calcium 9.2 mg/dl (8.5-10.1); Creatinine Clr Calc Pharmacy 10.1 ml/min; Est GFR (African American) 6.3 ml/min; Est GFR (Non-African American) 5.5 ml/min; Potassium 4.8 mmol/L (3.5-5.1)
--- NOTE | 2021-02-07 09:47 | Nephrology Progress Note ---
Date of Service February 07, 2021 Assessment & Plan Admission and Anticipated Discharge Date Admission Date: February 02, 2021 Subjective No new symptoms. She feels fine. Denies SOB, N,v,urine issues. Making urine. HEENT: Mucous membrane is moist. NECK: Supple. Cannot really assess jugular venous distension because of short obese neck. CHEST: Bilateral clear to auscultation. CARDIOVASCULAR: S1 and S2, regular. ABDOMEN: Soft, obese, nontender. EXTREMITIES: Shows trace edema could be related with obesity. SKIN: Shows no rashes. NEUROLOGIC: She is awake, alert, oriented x3, normal affect, pleasant and access coordinator perative, following all commands. LABORATORY TEST: Was reviewed in extensive detail. Her baseline creatinine prior to all these episodes of renal failure was about 1.6-1.8 with subnephrotic range proteinuria during the previous admission and on the day of discharge, her creatinine was 5.5, but was on the rising trend for about 4 days, since then has continued to go up, this morning is 7.61, BUN is 96 ASSESSMENT AND PLAN: A 60-year-old female with history of longstanding diabetes for 25+ years on insulin, with a baseline chronic kidney disease stage III to stage IV, with a baseline creatinine of around 1.6-1.8 now with worsening renal function. This admission is a continuation of the previous admission. She had acute renal failure a few weeks back and even on the day of discharge, her creatinine was 5.5 and in a rising trend. She did require 2 sessions of dialysis during this recent admission. It is very likely she might need dialysis again, but does not need at this very moment. Given the fairly rapid rising of renal function, most likely etiology is acute tubular necrosis, although acute interstitial nephritis is also a possibility. However, very unlikely will be doing a renal biopsy in an obese patient with 25+ years of diabetes and pre existing CKD with proteinuria RECOMMENDATIONS: For today: 1. No Lasix no IV fluid. 2. Continue daily labs. 4. At this point we will plan to have a tunneled dialysis catheter directly and initiate dialysis again. has more Itching and feeling very cold--could be uremic Symptoms. Will ask Surgeon to see her today and maybe Dialysis Cath on Friday. The case was discussed with Dr. Salguero, hospitalist. 5 Patient is agreeable. We discussed about outpt dialysis. Start case resolution specialist to work on this. She wanted to do at [facility] unit as it is open 6 days a week. 6 Dialysis today for 2 hrs today--No Meds, NO UF. 3K Results & Data ([facility]) Vital Signs (Past 12 Hours) Vital Signs Temp Pulse Pulse Resp BP BP Pulse Ox 02/07/21 07:22 36.5 C 81 18 134/75 96 02/07/21 02:48 36.8 C 69 18 131/60 96 02/07/21 02:07 70 02/06/21 22:48 36.7 C 72 18 129/60 96
--- NOTE | 2021-02-07 11:20 | History & Physical Bridge Note ---
Date of Service February 07, 2021 History & Physical Bridge Note Patient for permcath today. I have discussed the risks options and benefits of the procedure with the patient. The patient understands the risks options and benefits and agrees to the procedure. I have examined the patient, reviewed the History & Physical and in the interval since the performance of the History & Physical I have noted the following changes of clinical significance: no changes noted
[2021-02-07] MEDS ORDERED: ceFAZolin 2000MG 2,000 MG/15 ML SYR IV ONE (12:00)
[2021-02-07] MEDS ORDERED: HEPARIN SOD (PORCINE) 5,000 UNITS/ML VIAL ONE (12:42)
[2021-02-07] MEDS ORDERED: LIDOCAINE 1% LOCAL 20 ML VIAL ONE ×2 (12:42→13:17)
[2021-02-07] MEDS ORDERED: MIDAZOLAM HCL 1 MG/ML 2ML VIAL ONE ×2 (12:43→13:27)
[2021-02-07] MEDS ORDERED: fentaNYL citrate 100 MCG/2 ML VIAL ONE ×2 (12:44→13:27)
--- NOTE | 2021-02-07 12:53 | Pre Anesthesia Assessment ---
Date of Service February 07, 2021 Pre Sedation Assessment Vital Signs Temp Pulse Pulse Resp BP BP Pulse Ox 02/07/21 12:25 36.8 C 71 18 162/70 H 97 02/07/21 08:00 71 02/07/21 07:22 36.5 C 81 18 134/75 96 02/07/21 02:48 36.8 C 69 18 131/60 96 02/07/21 02:07 70 02/06/21 22:48 36.7 C 72 18 129/60 96 02/06/21 19:55 156/79 H 02/06/21 18:59 36.9 C 71 20 141/56 H 96 02/06/21 15:23 77 Cardiovascular RRR, no murmur, no edema Respiratory normal respiratory effort, lungs clear to auscultation Pre-Sedation Airway Assessment Smoking Status: Never smoker Hx Sleep Apnea: Yes (c pap at home) Hx Difficult Intubation: No Short, Thick Neck: Yes Thyromental Distance: < 3.5 Finger Breadths Oral Cavity: + WNL Mallampati Class: II ASA: ASA4 NPO Status Date of Last Intake of Fluids: 02/06/21 Time of Last Intake of Fluids: 22:00 Last Oral Intake of Fluids Comment: sips with meds only Date of Last Intake of Solid Food: 02/06/21 Time of Last Intake of Solid Foods: 22:00 Procedure Planning Contraindications for Sedation: none Current Medications Reviewed: Yes Notes The planned sedation has been discussed with the patient. Informed Consent was obtained. I have identified the patient, determined the appropriateness of sedation and have assessed the patient immediately prior to the procedure. All medicine(s) and interventions are by my order.
--- NOTE | 2021-02-07 13:47 | Post Operative Brief Note ---
Immediate Post Op Note v1 Date of Surgery February 07, 2021 Pre & Post Diagnosis Operation Date: 02/07/21 13:00 Pre-Op Diagnosis: Acute Renal Failure Post-Op Diagnosis: Acute Renal Failure I identified the patient and participated in the time-out.: Yes Procedure Operation Date: 02/07/21 13:00 Actual Procedures p Insertion of Perm Catheter, Right Internal Jugular Approach, Ultrasound localization of Right Internal Jugular Vein, Fluoroscopy for Positioning, Moderate Sedation [id number](Right) - Marko Tejeda MD Surgeon Marko Tejeda MD Braid Cutter MD Dorie Estimated Blood Loss 5 Findings Consistent with Post-Op Diagnosis Anesthesia Type RN Sedation Complications none Disposition Accompanied Patient To Recovery: No Disposition: Recovery Room
--- NOTE | 2021-02-07 13:49 | Operative Report ---
Post Operative Report Pre & Post Diagnosis Operation Date: 02/07/21 13:00 Pre-Op Diagnosis: Acute Renal Failure Post-Op Diagnosis: Acute Renal Failure I identified the patient and participated in the time-out.: Yes Procedure Operation Date: 02/07/21 13:00 Actual Procedures p Insertion of Perm Catheter, Right Internal Jugular Approach, Ultrasound localization of Right Internal Jugular Vein, Fluoroscopy for Positioning, Moderate Sedation [id number](Right) - Marko Tejeda MD Surgeon Marko Tejeda MD Cracking And Fanning Machine Operator MD Dorie Estimated Blood Loss 5 Findings Consistent with Post-Op Diagnosis Specimens None Complications none Description of Procedure Patient was taken to the angio suite and placed in the supine position. The right side of the neck and chest wall were prepped and draped in a sterile manner. The patient was identified and a timeout performed. Local anesthesia w as then administered to the appropriate areas of the neck and chest wall. Ultrasound was then used to locate the right internal jugular vein. The vein compressed easily, had no filing defects, and was patent. The vein was then punctured under direct ultrasound imaging. A guidewire was then passed centrally under fluoroscopic imaging. A stab wound was then made in the anterior chest wall and a 19 cm permcath was passed from the stab wound on the chest wall to the puncture site on the neck. The puncture site was then dilated till the 14Fr peel away sheath was inserted. The permcath was then inserted through the sheath to a central position in the distal superior vena cava. The peel away sheath was then removed. The catheter was then sutured in place using nylon sutures. The puncture was then closed using a 4-0 Vicryl subcuticular suture. Dermabond was used for a dressing on the puncture site. Both ports aspirated and flushed easily and were then packed with heparin. A sterile dressing was applied to the catheter. The patient left the angio suite in good condition and tolerated the procedure well. Dr. Tejeda was present and scrubbed for the entire procedure. I attest to the content of the Intraoperative Record and any orders documented therein. Any exceptions are noted below.
--- NOTE | 2021-02-07 13:51 | Post Anesthesia Assessment ---
Date of Service February 07, 2021 Post Sedation Assessment Vital Signs Temp Pulse Pulse Resp BP BP Pulse Ox 02/07/21 13:44 65 24 144/60 H 97 02/07/21 13:40 65 24 142/63 H 97 02/07/21 13:35 65 20 161/63 H 100 02/07/21 13:30 65 24 153/99 H 100 02/07/21 13:25 65 20 144/63 H 100 02/07/21 13:20 65 20 125/79 100 02/07/21 13:15 71 20 116/57 L 100 02/07/21 13:10 70 18 157/68 H 100 02/07/21 13:05 70 18 167/71 H 100 02/07/21 12:25 36.8 C 71 18 162/70 H 97 02/07/21 08:00 71 02/07/21 07:22 36.5 C 81 18 134/75 96 02/07/21 02:48 36.8 C 69 18 131/60 96 02/07/21 02:07 70 02/06/21 22:48 36.7 C 72 18 129/60 96 02/06/21 19:55 156/79 H 02/06/21 18:59 36.9 C 71 20 141/56 H 96 02/06/21 15:23 77 Recovery Score Activity: Moves 4 extremities Respiration: Deep Breath/Cough Circulation: +/-20% PreAnes Value Consciousness: Arouseable (by name) Oxygen Saturation: > 92% On Room Air Post Anesthesia Score: 9 Discharge Sedation Level of Care: Fast Track Phase II Post Sedation Plan On clinical assessment, the patient appears to have tolerated the sedation without complications. Patient is recovering as anticipated. Patient will continue to be monitored by nursing and may be discharged when sedation discharge criteria are met per below protocol. Upon Completions of procedure up to 15 minutes continue every 5 minute vital signs and the P.A.R. score; then discharge to a Phase I or Fast Track to Phase II per the following guidelines: * Discharge Patient to appropriate Phase II area if PAR is 8 or greater or return to pre- procedure baseline. The post - procedure orders will be as directed. * If PAR score is less than 8 or not return to pre-procedure baseline then patient will follow Phase I monitoring till PAR is reached for Phase II. The Phase I may be done in procedure room or may call to secure a Phase I area. * If naloxone or flumazenil are used for reversal, hold in Phase I for continued monitoring from when last reversal dose was given for a minimum of 60 minutes or longer pending the nurse and/or physician discretion of patient condition before discharge to Phase II. Please call the Sedation Physician to re-evaluate and complete post-note for discharge to Phase II area. Do NOT discharge from procedure sedation or Phase 1 until post- sedation evaluation note is complete by procedure /sedation MD Sedation Discharge Instructions to be given to the patient at discharge to home.
[2021-02-07] MEDS ORDERED: SODIUM CHLORIDE 0.9% 1000ML 1,000 ML IV PRN (14:22)
--- NOTE | 2021-02-07 14:32 | Pharmacy Report ---
Pharmacy Glycemic Short Note 2 - Date of Service February 07, 2021 - Glycemic Short BSG Results (Last 24 hours): 02/06/21 02/06/21 02/07/21 16:35 19:58 00:39 Glucose POC Glucose 149 H 238 H 137 H 02/07/21 02/07/21 02/07/21 06:17 07:47 08:18 Glucose 122 H POC Glucose 150 H 145 H 02/07/21 12:01 Glucose POC Glucose 142 H OUTPATIENT ANTIDIABETIC REGIMEN: * Lantus 23 units qAM + Humalog (carbohydrate ratio of 4) * HbA1C = 7.4% (02/04/21) ASSESSMENT: 02/08/21 * BSGs yesterday were [phone] mg/dL. Fasting today was 150 mg/dL. * Patient received 60 units of insulin (23 units of basal insulin and 37 units of bolus insulin). * Fasting BSG reasonable. Gave slightly reduced dose today due to NPO status. Now receiving dialysis. * Postprandial BSGs elevated. Tightened CR yesterday. Will continue this now that patient is receiving dialysis. Monitor closely. 02/07/21 * BSGs yesterday were [phone] mg/dL * Patient received 40 units of insulin (20 units of basal and 20 units of bolus). * Fasting today is 157 mg/dL. * Will start home dose of Lantus 23 units. Dose daily to monitor any accumulation due to LAMAR. * Tighten Novolog as BSGs trend upwards. background * Ms Irvin is a 60 y/o F with a PMH of T2DM on insulin presenting with LAMAR on CKD. There were plans for a tunneled dialysis catheter placement today but that has been placed on hold as patient has no indication for dialysis. To follow kidney function currently. * BSGs on 02/04/21 were [phone] mg/dL. Patient received 36 units of basal (Lantus 18 units BID) plus 35 units of basal for total of 71 units of insulin. * Fasting this morning was 119 mg/dL. Patient was originally NPO so no Lantus given (100 point difference between 02/04 and 02/05 fasting). Diet re-ordered at lunch. Will order conservative Lantus dose due to continued kidney injury. Overnight checks ordered in case additional basal needed. * Novolog weight-based stress of 2-3 ordered. PLAN FOR INPATIENT GLYCEMIC CONTROL: * Basal insulin * Lantus 18 units SQ x 1 then reassess * Bolus insulin * NovoLog per scale ACHS or Q6hrs while NPO * Goal Range: Low 110 mg/dL - High 140 mg/dL * Correction Factor: 20 mg/dL/unit * Nutritional / Prandial insulin per carb ratio of 1 unit per 5 grams CHO consumed PLAN FOR DISCHARGE: * tbd
[2021-02-07] MEDS ORDERED: INSULIN ASPART 100 UNITS/ML 3 ML PEN SC ONE (14:45)
[2021-02-07] MEDS ORDERED: oxyCODONE/ACETAMINOPHEN 5mg/325mg TAB PO STA (15:01)
[2021-02-07 16:10] LABS: Hepatitis B Surface Ab Quant < 3.10 mIU/mL (>or=10mIU/mL Immune); Hepatitis B Surface Antibody Non-Immune
[2021-02-07 16:21] LABS: Hepatitis B Surf Ag Rflx Conf Neg (Neg)
--- NOTE | 2021-02-07 17:46 | Hospitalist Progress Note ---
Date of Service February 07, 2021 Assessment & Plan (1) Acute kidney injury superimposed on CKD: Plan: Acute kidney injury on CKD III Volume overload Hyperkalemia: secondary to LAMAR Hyperphosphatemia Renal USD:No hydronephrosis. CXR:Cardiomegaly with mild interstitial pulmonary edema. This has developed in the interval. Received IV lasix 80mg x1 Continue Patiromer Calcium Avoid nephrotoxic agents as able Appreciate Nephrology Input Renal/low potassium diet Creatinine and BUN has been creeping up with more symptoms of weakness and tiredness Status post permacatheter placement today Likely to have dialysis soon Chronic diastolic CHF (congestive heart failure): Monitor volume status Was on Lasix as needed Chest remains clear to auscultation HTN (hypertension): BP stable continue amlodipine, carvedilol, hydralazine Anemia: Anemia of Chronic disease Monitor CBC Hemoglobin drop likely dilutional secondary to volume overload No indication for transfusion currently Hemoglobin remains at 8.3 SSS (sick sinus syndrome): Continue Coreg Pacemaker: No acute issues Hypothyroidism: Continue levothyroxine Diabetes mellitus, type II: Hgb A1c 7.4 01/2021 Continue Lantus and NovoLog Monitor BGs DVT Px: SQ heparin Admission and Anticipated Discharge Date Admission Date: February 02, 2021 Subjective 02/07/2021 The patient was seen and examined in medical telemetry unit She has been waiting for insertion of permanent catheter today Complains to have weakness and tiredness Review of Systems Review of Systems: All systems reviewed and are unremarkable except as noted below Physical Exam Physical Exam: Lying in bed comfortably Constitutional: well developed, well nourished and + obese; not ill appearing Eyes: PERRL, conjunctivae normal, anicteric sclerae Neck: trachea midline, no thyromegaly Respiratory: no respiratory distress Auscultation: lungs clear to auscultation bilaterally Cardiovascular: Rate/Rhythm: regular rate and regular rhythm; not tachycardic Gastrointestinal (Abdomen): normal bowel sounds, soft, nontender, no hepatosplenomegaly Musculoskeletal: No acute arthritis in any joint Neurologic: moves all extremities Psychiatric: A+Ox3, euthymic affect Lymphatic: no cervical or axillary lymphadenopathy Results & Data Results & Data ([facility]) Vital Signs (Past 12 Hours) Vital Signs Temp Pulse Pulse Resp BP Pulse Ox 02/07/21 15:17 66 02/07/21 14:44 36.5 C 66 20 144/72 H 96 02/07/21 14:09 36.7 C 66 16 111/58 L 97 02/07/21 13:49 65 20 148/65 H 96 02/07/21 13:44 65 24 144/60 H 97 02/07/21 13:40 65 24 142/63 H 97 02/07/21 13:35 65 20 161/63 H 100 02/07/21 13:30 65 24 153/99 H 100 02/07/21 13:25 65 20 144/63 H 100 02/07/21 13:20 65 20 125/79 100 02/07/21 13:15 71 20 116/57 L 100 02/07/21 13:10 70 18 157/68 H 100 02/07/21 13:05 70 18 167/71 H 100 02/07/21 12:25 36.8 C 71 18 162/70 H 97 02/07/21 08:00 71 02/07/21 07:22 36.5 C 81 18 134/75 96 Laboratory Results Short CBC 02/07/21 Range/Units 07:47 WBC 8.48 (4.8-10.8) K/uL Hgb 8.3 L (12.0-16.0) g/dL Hct 26.3 L (37-47) % Plt Count 254 (130-400) K/uL BMP 02/07/21 07:47 Sodium 137 Potassium 4.8 Chloride 109 H Carbon Dioxide 19 L BUN 90 H Creatinine 7.29 H* D Glucose 122 H Calcium 9.2 Medications Administered Current Inpatient Medications Acetaminophen (Acetaminophen 325 Mg Tab) 650 mg PO Q4H PRN PRN Reason: Pain or Fever Stop: 03/04/21 18:13 Last Admin: 02/06/21 23:13 Dose: 650 mg Documented by: Amlodipine Besylate (Amlodipine Besylate 5 Mg Tab) 5 mg PO QAM [facility] Stop: 03/05/21 08:59 Last Admin: 02/07/21 08:20 Dose: 5 mg Documented by: Atorvastatin Calcium (Atorvastatin 40 Mg Tab) 40 mg PO PM [facility] Stop: 03/04/21 20:59 Last Admin: 02/06/21 19:55 Dose: 40 mg Documented by: Calcium Citrate (Calcium Citrate 950 Mg Tab) 950 mg PO BID [facility] Stop: 03/04/21 20:59 Last Admin: 02/07/21 08:20 Dose: 950 mg Documented by: Carvedilol (Carvedilol 12.5 Mg Tab) 12.5 mg PO BID [facility] Stop: 03/04/21 20:59 Last Admin: 02/07/21 08:20 Dose: 12.5 mg Documented by: Citalopram Hydrobromide (Citalopram 40 Mg Tab) 40 mg PO QAM [facility] Stop: 03/05/21 08:59 Last Admin: 02/07/21 08:19 Dose: 40 mg Documented by: Dextrose (Dextrose 50% 50 Ml Syringe) 25 - 50 ml IV UD PRN; Protocol PRN Reason: Hypoglycemia Protocol Stop: 03/04/21 18:13 Diphenhydramine HCl (Diphenhydramine Capsule 25 Mg Cap) 25 mg PO TID PRN PRN Reason: Itching Stop: 03/04/21 19:01 Last Admin: 02/06/21 21:45 Dose: 25 mg Documented by: Docusate Sodium (Docusate Sodium 100 Mg Cap) 100 mg PO BID [facility] Stop: 03/08/21 17:44 Last Admin: 02/07/21 08:19 Dose: 100 mg Documented by: Gabapentin (Gabapentin 100 Mg Cap) 100 mg PO HS [facility] Stop: 03/06/21 20:59 Last Admin: 02/06/21 19:49 Dose: 100 mg Documented by: Glucagon (Glucagon For Inj 1 Mg Vial) 1 mg SQ UD PRN; Protocol PRN Reason: Hypoglycemia Protocol Stop: 03/04/21 18:13 Glucose (Glucose 10 Tabs/Tube) 4 - 8 tabs PO UD PRN; Protocol PRN Reason: Hypoglycemia Protocol Stop: 03/04/21 18:13 Glucose (Glucose 40% Gel 15 Gm Tube) 15 - 30 gm PO UD PRN; Protocol PRN Reason: Hypoglycemia Protocol Stop: 03/04/21 18:13 Heparin Sodium (Porcine) (Heparin Sod 5,000 Unit/0.5 Ml Vial) 5,000 units SQ Q8 [facility] Stop: 03/04/21 21:59 Last Admin: 02/07/21 14:28 Dose: 5,000 units Documented by: Hydralazine HCl (Hydralazine Tab 50 Mg Tab) 100 mg PO TID [facility] Stop: 03/04/21 20:59 Last Admin: 02/07/21 14:28 Dose: 100 mg Documented by: Sodium Chloride (Nss 1000ml) 1,000 mls @ 0 mls/hr IV .Q0M PRN PRN Reason: For Hemodialysis Use ONLY Stop: 02/07/21 20:21 Insulin Aspart (Insulin Aspart 100 Units/Ml 3 Ml Pen) 0 units SC ACHS [facility] Stop: 03/09/21 16:29 Levothyroxine Sodium (Levothyroxine Sodium 100 Mcg Tablet) 100 mcg PO DAILYBB [facility] Stop: 03/05/21 06:29 Last Admin: 02/07/21 06:18 Dose: 100 mcg Documented by: Lorazepam (Lorazepam 0.5 Mg Tab) 0.5 mg PO BID PRN PRN Reason: Anxiety Stop: 03/04/21 18:13 Last Admin: 02/06/21 02:45 Dose: 0.5 mg Documented by: Miscellaneous (Carbohydrates For Hypoglycemia ) 15 - 30 gm PO UD PRN PRN Reason: Hypoglycemia Protocol Stop: 03/04/21 18:13 Miscellaneous Information (Pharmacy Glycemic Mgmt Consult) 1 ea N/A UD PRN PRN Reason: Consult Stop: 03/06/21 17:08 Ondansetron HCl (Ondansetron Inj 2 Mg/Ml 2 Ml Vial) 4 mg IV Q6H PRN PRN Reason: Nausea And Vomiting Stop: 03/05/21 08:39 Pantoprazole Sodium (Pantoprazole 40 Mg Tab) 40 mg PO QAM [facility] Stop: 03/05/21 08:59 Last Admin: 02/07/21 08:20 Dose: 40 mg Documented by: Polyethylene Glycol (Polyethylene (Miralax) 17 Gm Pack) 17 gm PO DAILY PRN PRN Reason: Constipation Stop: 03/08/21 17:42 Vitamin B Complex/Folic Acid (Nephrocaps) 1 cap PO QAM [facility] Stop: 03/05/21 08:59 Last Admin: 02/07/21 08:20 Dose: 1 cap Documented by:
[2021-02-07] MEDS: diphenhydrAMINE Capsule 25 MG CAP PO PRN (20:05)
[2021-02-07] MEDS: ACETAMINOPHEN 325 MG TAB PO PRN (20:05)
[2021-02-07] MEDS: GABAPENTIN 100 MG CAP PO SCH (20:05)
[2021-02-07] MEDS: ATORVASTATIN 40 MG TAB PO SCH (20:05)
[2021-02-07] MEDS ORDERED: oxyCODONE HCL IR 5 MG TAB (IMMEDIATE RELEASE) PO STA (20:59)
[2021-02-08] MEDS: LEVOTHYROXINE SODIUM 100 MCG TABLET PO SCH (05:57)
[2021-02-08] MEDS: ACETAMINOPHEN 325 MG TAB PO PRN ×3 (05:57→21:01)
[2021-02-08] MEDS: HEPARIN SOD 5,000 UNIT/0.5 ML VIAL SQ SCH ×3 (05:57→21:02)
[2021-02-08] MEDS: INSULIN ASPART 100 UNITS/ML 3 ML PEN SC SCH ×4 (08:36→20:31)
[2021-02-08 08:57] LABS: BUN Creatinine Ratio 10.7 (10-20); Calcium 8.9 mg/dl (8.5-10.1); Creatinine Clr Calc Pharmacy 13.6 ml/min; Est GFR (African American) 9.2 ml/min; Est GFR (Non-African American) 7.9 ml/min; Potassium 4.5 mmol/L (3.5-5.1)
[2021-02-08] MEDS ORDERED: INSULIN GLARGINE SOLOSTAR 100 UNITS/ML 3 ML PEN SC ONE (09:00)
--- NOTE | 2021-02-08 12:29 | Dialysis Progress Note ---
Date of Service February 08, 2021 Assessment & Plan Admission and Anticipated Discharge Date Admission Date: February 02, 2021 Subjective Seen in dialysis. No new symptoms. She feels fine. Denies SOB, N,v,urine issues. Making urine. HEENT: Mucous membrane is moist. NECK: Supple. Cannot really assess jugular venous distension because of short obese neck. CHEST: Bilateral clear to auscultation. CARDIOVASCULAR: S1 and S2, regular. ABDOMEN: Soft, obese, nontender. EXTREMITIES: Shows trace edema could be related with obesity. SKIN: Shows no rashes. NEUROLOGIC: She is awake, alert, oriented x3, normal affect, pleasant and cooperative, following all commands. LABORATORY TEST: Was reviewed in extensive detail. ASSESSMENT AND PLAN: A 60-year-old female with history of longstanding diabetes for 25+ years on insulin, with a baseline chronic kidney disease stage III to stage IV, with a baseline creatinine of around 1.6-1.8 now with worsening renal function. This admission is a continuation of the previous admission. She had acute renal failure a few weeks back and even on the day of discharge, her creatinine was 5.5 and in a rising trend. She did require 2 sessions of dialysis during this recent admission. It is very likely she might need dialysis again, but does not need at this very moment. Given the fairly rapid rising of renal function, most likely etiology is acute tubular necrosis, although acute interstitial nephritis is also a possibility. However, very unlikely will be doing a renal biopsy in an obese patient with 25+ years of diabetes and pre existing CKD with proteinuria RECOMMENDATIONS: For today: 1. use baseline Demadex 100 once daily--conitnue outpt 2. Continue daily labs. Outpt dialysis=--- case aide to work on this. She wanted to do at [facility] as it is open 6 days a week. 3 Dialysis today for 3 hrs today--No Meds, NO UF. 3K. Cath did work fine. Results & Data ([facility]) Vital Signs (Past 12 Hours) Vital Signs Temp Pulse Pulse Pulse Resp BP BP 02/08/21 12:20 64 164/65 H 02/08/21 12:00 60 168/66 H 02/08/21 11:40 64 159/74 H 02/08/21 11:20 62 160/68 H 02/08/21 11:00 67 168/67 H 02/08/21 10:40 64 162/55 H 02/08/21 10:20 60 156/66 H 02/08/21 10:00 72 125/99 02/08/21 09:40 36.5 C 74 02/08/21 08:00 36.6 C 59 L 18 135/68 02/08/21 07:00 60 02/08/21 03:42 36.5 C 70 18 152/53 H Pulse Ox Pulse Ox 02/08/21 12:20 02/08/21 12:00 02/08/21 11:40 02/08/21 11:20 02/08/21 11:00 02/08/21 10:40 02/08/21 10:20 02/08/21 10:00 02/08/21 09:40 02/08/21 08:00 95 95 02/08/21 07:00 02/08/21 03:42 97
--- NOTE | 2021-02-08 13:07 | Pharmacy Report ---
Pharmacy Glycemic Short Note 2 - Date of Service February 08, 2021 - Glycemic Short BSG Results (Last 24 hours): 02/07/21 02/07/21 02/08/21 14:37 19:30 07:23 Glucose 144 H POC Glucose 152 H 117 H 02/08/21 02/08/21 07:51 12:59 Glucose POC Glucose 143 H 96 OUTPATIENT ANTIDIABETIC REGIMEN: * Lantus 23 units qAM + Humalog (carbohydrate ratio of 4) * HbA1C = 7.4% (02/04/21) ASSESSMENT: 02/09/21 * BSGs yesterday were [phone] mg/dL. Fasting today was 143 mg/dL. * Patient received 31 units of insulin (18 units of basal insulin and 13 units of bolus insulin). * Fasting BSG reasonable. Now receiving dialysis - will continue current regimen and reduce if fasting trends downwards. * Postprandial BSGs trending downwards most likely due to decreased insulin resistance. Loosen CF/CR 02/08/21 * BSGs yesterday were [phone] mg/dL. Fasting today was 150 mg/dL. * Patient received 60 units of insulin (23 units of basal insulin and 37 units of bolus insulin). * Fasting BSG reasonable. Gave slightly reduced dose today due to NPO status. Now receiving dialysis. * Postprandial BSGs elevated. Tightened CR yesterday. Will continue this now that patient is receiving dialysis. Monitor closely. 02/07/21 * BSGs yesterday were [phone] mg/dL * Patient received 40 units of insulin (20 units of basal and 20 units of bolus). * Fasting today is 157 mg/dL. * Will start home dose of Lantus 23 units. Dose daily to monitor any accumulation due to LAMAR. * Tighten Novolog as BSGs trend upwards. background * Ms Irvin is a 60 y/o F with a PMH of T2DM on insulin presenting with LAMAR on CKD. There were plans for a tunneled dialysis catheter placement today but that has been placed on hold as patient has no indication for dialysis. To follow kidney function currently. * BSGs on 02/04/21 were [phone] mg/dL. Patient received 36 units of basal (Lantus 18 units BID) plus 35 units of basal for total of 71 units of insulin. * Fasting this morning was 119 mg/dL. Patient was originally NPO so no Lantus given (100 point difference between 02/04 and 02/05 fasting). Diet re-ordered at lunch. Will order conservative Lantus dose due to continued kidney injury. Overnight checks ordered in case additional basal needed. * Novolog weight-based stress of 2-3 ordered. PLAN FOR INPATIENT GLYCEMIC CONTROL: * Basal insulin * Lantus 18 units SQ x 1 then reassess * Bolus insulin - loosen * NovoLog per scale ACHS or Q6hrs while NPO * Goal Range: Low 110 mg/dL - High 140 mg/dL * Correction Factor: 20 mg/dL/unit * Nutritional / Prandial insulin per carb ratio of 1 unit per 7 grams CHO consumed PLAN FOR DISCHARGE: * tbd
[2021-02-08] MEDS: DOCUSATE SODIUM 100 MG CAP PO SCH ×2 (13:13→20:29)
[2021-02-08] MEDS: POLYETHYLENE (MIRALAX) 17 GM PACK PO PRN (13:13)
[2021-02-08] MEDS: amLODIPine BESYLATE 5 MG TAB PO SCH (13:13)
[2021-02-08] MEDS: NEPHROCAPS PO SCH (13:13)
[2021-02-08] MEDS: CITALOPRAM 40 MG TAB PO SCH (13:13)
[2021-02-08] MEDS: CALCIUM CITRATE 950 MG TAB PO SCH ×2 (13:14→20:28)
[2021-02-08] MEDS: carvediloL 12.5 MG TAB PO SCH ×2 (13:14→20:29)
[2021-02-08] MEDS: hydrALAZINE TAB 50 MG TAB PO SCH ×3 (13:14→20:29)
[2021-02-08] MEDS: PANTOprazole 40 MG TAB PO SCH (13:15)
[2021-02-08] MEDS ORDERED: bisacodyL 5 MG TABEC PO ONE (18:37)
[2021-02-08] MEDS ORDERED: MAGNESIUM HYDROXIDE SUSP 30 ML UDC PO ONE (18:37)
--- NOTE | 2021-02-08 18:40 | Hospitalist Progress Note ---
Date of Service February 08, 2021 Assessment & Plan (1) Acute kidney injury superimposed on CKD: Plan: Acute kidney injury on CKD III Volume overload Hyperkalemia: secondary to LAMAR Hyperphosphatemia Renal USD:No hydronephrosis. CXR:Cardiomegaly with mild interstitial pulmonary edema. This has developed in the interval. Received IV lasix 80mg x1 Continue Patiromer Calcium Avoid nephrotoxic agents as able Appreciate Nephrology Input Renal/low potassium diet Creatinine and BUN has been creeping up with more symptoms of weakness and tiredness Status post permacatheter placement today Status post dialysis today She has been feeling much better following dialysis Likely discharge tomorrow Constipation Complains to have some abdominal bloating without nausea and/or vomiting We will try milk of magnesia and Dulcolax Chronic diastolic CHF (congestive heart failure): Monitor volume status Was on Lasix as needed Chest remains clear to auscultation HTN (hypertension): BP stable continue amlodipine, carvedilol, hydralazine Anemia: Anemia of Chronic disease Monitor CBC Hemoglobin drop likely dilutional secondary to volume overload No indication for transfusion currently Hemoglobin remains at 8.3 SSS (sick sinus syndrome): Continue Coreg Pacemaker: No acute issues Hypothyroidism: Continue levothyroxine Diabetes mellitus, type II: Hgb A1c 7.4 01/2021 Continue Lantus and NovoLog Monitor BGs DVT Px: SQ heparin Admission and Anticipated Discharge Date Admission Date: February 02, 2021 Subjective 02/07/2021 The patient was seen and examined in medical telemetry unit She has been waiting for insertion of permanent catheter today Complains to have weakness and tiredness 02/08/2021 The patient was seen and examined in medical telemetry unit She has been feeling much better but complains to have constipation and some abdominal bloating She is a status post hemodialysis today Review of Systems Review of Systems: All systems reviewed and are unremarkable except as noted below Physical Exam Physical Exam: Lying in bed comfortably Constitutional: well developed, well nourished and + obese; not ill appearing Eyes: PERRL, conjunctivae normal, anicteric sclerae Neck: trachea midline, no thyromegaly Respiratory: no respiratory distress Auscultation: lungs clear to auscultation bilaterally Cardiovascular: Rate/Rhythm: regular rate and regular rhythm; not tachycardic Gastrointestinal (Abdomen): normal bowel sounds, soft, nontender, no hepatosplenomegaly Neurologic: moves all extremities Psychiatric: A+Ox3, euthymic affect Lymphatic: no cervical or axillary lymphadenopathy Results & Data Results & Data ([facility]) Vital Signs (Past 12 Hours) Vital Signs Temp Pulse Pulse Pulse Resp BP BP 02/08/21 15:04 36.4 C L 60 18 152/76 H 02/08/21 12:55 36.5 C 68 158/68 H 02/08/21 12:40 61 161/65 H 02/08/21 12:20 64 164/65 H 02/08/21 12:00 60 168/66 H 02/08/21 11:40 64 159/74 H 02/08/21 11:20 62 160/68 H 02/08/21 11:00 67 168/67 H 02/08/21 10:40 64 162/55 H 02/08/21 10:20 60 156/66 H 02/08/21 10:00 72 125/99 02/08/21 09:40 36.5 C 74 02/08/21 08:00 36.6 C 59 L 18 135/68 02/08/21 07:00 60 Pulse Ox Pulse Ox 02/08/21 15:04 94 02/08/21 12:55 02/08/21 12:40 02/08/21 12:20 02/08/21 12:00 02/08/21 11:40 02/08/21 11:20 02/08/21 11:00 02/08/21 10:40 02/08/21 10:20 02/08/21 10:00 02/08/21 09:40 02/08/21 08:00 95 95 02/08/21 07:00 Laboratory Results BMP 02/08/21 07:23 Sodium 139 Potassium 4.5 Chloride 109 H Carbon Dioxide 22 BUN 57 H Creatinine 5.36 H* D Glucose 144 H Calcium 8.9 Medications Administered Current Inpatient Medications Acetaminophen (Acetaminophen 325 Mg Tab) 650 mg PO Q4H PRN PRN Reason: Pain or Fever Stop: 03/04/21 18:13 Last Admin: 02/08/21 13:17 Dose: 650 mg Documented by: Amlodipine Besylate (Amlodipine Besylate 5 Mg Tab) 5 mg PO QAM [facility] Stop: 03/05/21 08:59 Last Admin: 02/08/21 13:13 Dose: 5 mg Documented by: Atorvastatin Calcium (Atorvastatin 40 Mg Tab) 40 mg PO PM [facility] Stop: 03/04/21 20:59 Last Admin: 02/07/21 20:05 Dose: 40 mg Documented by: Bisacodyl (Bisacodyl 5 Mg Tabec) 5 mg PO NOW ONE Stop: 02/08/21 18:38 Calcium Citrate (Calcium Citrate 950 Mg Tab) 950 mg PO BID [facility] Stop: 03/04/21 20:59 Last Admin: 02/08/21 13:14 Dose: 950 mg Documented by: Carvedilol (Carvedilol 12.5 Mg Tab) 12.5 mg PO BID [facility] Stop: 03/04/21 20:59 Last Admin: 02/08/21 13:14 Dose: 12.5 mg Documented by: Citalopram Hydrobromide (Citalopram 40 Mg Tab) 40 mg PO QAM [facility] Stop: 03/05/21 08:59 Last Admin: 02/08/21 13:13 Dose: 40 mg Documented by: Dextrose (Dextrose 50% 50 Ml Syringe) 25 - 50 ml IV UD PRN; Protocol PRN Reason: Hypoglycemia Protocol Stop: 03/04/21 18:13 Diphenhydramine HCl (Diphenhydramine Capsule 25 Mg Cap) 25 mg PO TID PRN PRN Reason: Itching Stop: 03/04/21 19:01 Last Admin: 02/07/21 20:05 Dose: 25 mg Documented by: Docusate Sodium (Docusate Sodium 100 Mg Cap) 100 mg PO BID [facility] Stop: 03/08/21 17:44 Last Admin: 02/08/21 13:13 Dose: 100 mg Documented by: Gabapentin (Gabapentin 100 Mg Cap) 100 mg PO HS [facility] Stop: 03/06/21 20:59 Last Admin: 02/07/21 20:05 Dose: 100 mg Documented by: Glucagon (Glucagon For Inj 1 Mg Vial) 1 mg SQ UD PRN; Protocol PRN Reason: Hypoglycemia Protocol Stop: 03/04/21 18:13 Glucose (Glucose 10 Tabs/Tube) 4 - 8 tabs PO UD PRN; Protocol PRN Reason: Hypoglycemia Protocol Stop: 03/04/21 18:13 Glucose (Glucose 40% Gel 15 Gm Tube) 15 - 30 gm PO UD PRN; Protocol PRN Reason: Hypoglycemia Protocol Stop: 03/04/21 18:13 Heparin Sodium (Porcine) (Heparin Sod 5,000 Unit/0.5 Ml Vial) 5,000 units SQ Q8 [facility] Stop: 03/04/21 21:59 Last Admin: 02/08/21 13:18 Dose: 5,000 units Documented by: Hydralazine HCl (Hydralazine Tab 50 Mg Tab) 100 mg PO TID [facility] Stop: 03/04/21 20:59 Last Admin: 02/08/21 13:18 Dose: Not Given Documented by: Insulin Aspart (Insulin Aspart 100 Units/Ml 3 Ml Pen) 0 units SC ACHS [facility] Stop: 03/09/21 16:29 Last Admin: 02/08/21 17:14 Dose: 2 units Documented by: Levothyroxine Sodium (Levothyroxine Sodium 100 Mcg Tablet) 100 mcg PO DAILYBB [facility] Stop: 03/05/21 06:29 Last Admin: 02/08/21 05:57 Dose: 100 mcg Documented by: Lorazepam (Lorazepam 0.5 Mg Tab) 0.5 mg PO BID PRN PRN Reason: Anxiety Stop: 03/04/21 18:13 Last Admin: 02/06/21 02:45 Dose: 0.5 mg Documented by: Magnesium Hydroxide (Magnesium Hydroxide Susp 30 Ml Udc) 30 ml PO NOW ONE Stop: 02/08/21 18:38 Miscellaneous (Carbohydrates For Hypoglycemia ) 15 - 30 gm PO UD PRN PRN Reason: Hypoglycemia Protocol Stop: 03/04/21 18:13 Miscellaneous Information (Pharmacy Glycemic Mgmt Consult) 1 ea N/A UD PRN PRN Reason: Consult Stop: 03/06/21 17:08 Ondansetron HCl (Ondansetron Inj 2 Mg/Ml 2 Ml Vial) 4 mg IV Q6H PRN PRN Reason: Nausea And Vomiting Stop: 03/05/21 08:39 Pantoprazole Sodium (Pantoprazole 40 Mg Tab) 40 mg PO QAM [facility] Stop: 03/05/21 08:59 Last Admin: 02/08/21 13:15 Dose: 40 mg Documented by: Polyethylene Glycol (Polyethylene (Miralax) 17 Gm Pack) 17 gm PO DAILY PRN PRN Reason: Constipation Stop: 03/08/21 17:42 Last Admin: 02/08/21 13:13 Dose: 17 gm Documented by: Vitamin B Complex/Folic Acid (Nephrocaps) 1 cap PO QAM [facility] Stop: 03/05/21 08:59 Last Admin: 02/08/21 13:13 Dose: 1 cap Documented by:
[2021-02-08] MEDS: ATORVASTATIN 40 MG TAB PO SCH (20:28)
[2021-02-08] MEDS: GABAPENTIN 100 MG CAP PO SCH (20:28)
[2021-02-09] MEDS: LEVOTHYROXINE SODIUM 100 MCG TABLET PO SCH (05:42)
[2021-02-09] MEDS: HEPARIN SOD 5,000 UNIT/0.5 ML VIAL SQ SCH ×3 (05:42→20:34)
[2021-02-09 07:23] LABS: Mean Corpuscular Hgb Conc 31.4 g/dL (32-36); Mean Platelet Volume 10.7 fL (7.4-10.4); Platelet Count 262 K/uL (130-400)
[2021-02-09 07:40] LABS: Hematocrit (blood only) 27.4 % (37-47); Hemoglobin 8.6 g/dL (12.0-16.0); Mean Corpuscular Hemoglobin 29.7 pg (25-34); Mean Corpuscular Volume 94.5 fL (80-100); RDW Standard Deviation 44.8 fL (36.4-46.3); White Blood Count 8.54 K/uL (4.8-10.8)
[2021-02-09 07:41] LABS: Basophils # (auto) 0.05 K/uL (0-0.2); Basophils % (auto) 0.6 %; Eosinophils # (auto) 0.16 K/uL (0-0.5); Eosinophils % (auto) 1.9 %; Immature Granulocytes # (auto) 0.02 K/uL (0.00-0.02); Immature Granulocytes % (auto) 0.2 %; Lymphocytes # (auto) 3.11 K/uL (1.2-3.4); Lymphocytes % (auto) 36.4 %; Monocytes % (auto) 10.5 %; Neutrophils % (auto) 50.4 %
[2021-02-09] MEDS: carvediloL 12.5 MG TAB PO SCH ×2 (08:48→20:33)
[2021-02-09] MEDS: amLODIPine BESYLATE 5 MG TAB PO SCH (08:48)
[2021-02-09] MEDS: CALCIUM CITRATE 950 MG TAB PO SCH ×2 (08:48→20:33)
[2021-02-09] MEDS: CITALOPRAM 40 MG TAB PO SCH (08:48)
[2021-02-09] MEDS: INSULIN ASPART 100 UNITS/ML 3 ML PEN SC SCH ×4 (08:49→20:36)
[2021-02-09] MEDS: hydrALAZINE TAB 50 MG TAB PO SCH ×3 (08:49→20:33)
[2021-02-09] MEDS: NEPHROCAPS PO SCH (08:49)
[2021-02-09] MEDS: PANTOprazole 40 MG TAB PO SCH (08:49)
[2021-02-09] MEDS: DOCUSATE SODIUM 100 MG CAP PO SCH ×2 (08:49→20:34)
[2021-02-09] MEDS: INSULIN GLARGINE SOLOSTAR 100 UNITS/ML 3 ML PEN SC SCH (08:51)
[2021-02-09 09:01] LABS: Calcium 9.5 mg/dl (8.5-10.1); Creatinine Clr Calc Pharmacy 18.7 ml/min; Est GFR (African American) 13.5 ml/min; Est GFR (Non-African American) 11.7 ml/min
--- NOTE | 2021-02-09 10:38 | Dialysis Progress Note ---
Date of Service February 09, 2021 Assessment & Plan Admission and Anticipated Discharge Date Admission Date: February 02, 2021 Subjective Seen in dialysis. No new symptoms. She feels fine. Denies SOB, N,v,urine issues. Making urine. HEENT: Mucous membrane is moist. NECK: Supple. Cannot really assess jugular venous distension because of short obese neck. CHEST: Bilateral clear to auscultation. CARDIOVASCULAR: S1 and S2, regular. ABDOMEN: Soft, obese, nontender. EXTREMITIES: Shows trace edema could be related with obesity. SKIN: Shows no rashes. NEUROLOGIC: She is awake, alert, oriented x3, normal affect, pleasant and cooperative, following all commands. LABORATORY TEST: Was reviewed in extensive detail. ASSESSMENT AND PLAN: A 60-year-old female with history of longstanding diabetes for 25+ years on insulin, with a baseline chronic kidney disease stage III to stage IV, with a baseline creatinine of around 1.6-1.8 now with worsening renal function. This admission is a continuation of the previous admission. She had acute renal failure a few weeks back and even on the day of discharge, her creatinine was 5.5 and in a rising trend. She did require 2 sessions of dialysis during this recent admission. It is very likely she might need dialysis again, but does not need at this very moment. Given the fairly rapid rising of renal function, most likely etiology is acute tubular necrosis, although acute interstitial nephritis is also a possibility. However, very unlikely will be doing a renal biopsy in an obese patient with 25+ years of diabetes and pre existing CKD with proteinuria RECOMMENDATIONS: For today: 1. use baseline Demadex 100 once daily--continue outpt 2. Continue daily labs. Outpt dialysis=--- Most likely TTS 3 Dialysis today for 3 hrs today--No Meds, 1 kilo UF. 3K. Cath did work fine. 4 Can be discharged from renal standpoint. next Dialysis will be next week outpt. Results & Data ([facility]) Vital Signs (Past 12 Hours) Vital Signs Temp Pulse Pulse Pulse Pulse Resp BP 02/09/21 10:00 64 149/61 H 02/09/21 09:40 72 148/68 H 02/09/21 09:35 75 156/84 H 02/09/21 09:25 36.8 C 74 02/09/21 08:07 36.8 C 71 18 02/09/21 07:32 60 02/09/21 04:06 36.8 C 79 18 02/08/21 23:47 72 02/08/21 22:37 37.6 C H 78 18 BP Pulse Ox 02/09/21 10:00 02/09/21 09:40 02/09/21 09:35 02/09/21 09:25 02/09/21 08:07 143/71 H 96 02/09/21 07:32 02/09/21 04:06 126/62 97 02/08/21 23:47 02/08/21 22:37 123/67 96
[2021-02-09] MEDS ORDERED: EPOETIN ALFA 10,000 UNITS in SYRINGE 0 ML IV SCH (11:00)
[2021-02-09] MEDS ORDERED: EPOETIN ALFA 10,000 UNITS/ML VIAL IV SCH (12:00)
--- NOTE | 2021-02-09 12:45 | Pharmacy Report ---
Pharmacy Glycemic Short Note 2 - Date of Service February 09, 2021 - Glycemic Short BSG Results (Last 24 hours): 02/08/21 02/08/21 02/08/21 12:59 16:38 20:23 Glucose POC Glucose 96 138 H 243 H 02/09/21 02/09/21 06:48 07:47 Glucose 165 H POC Glucose 162 H OUTPATIENT ANTIDIABETIC REGIMEN: * Lantus 23 units qAM + Humalog (carbohydrate ratio of 4) * HbA1C = 7.4% (02/04/21) ASSESSMENT: 02/09/21 * BSGs yesterday were [phone] mg/dL. Fasting today was 162 mg/dL. * Patient received 45 units of insulin (18 units of basal insulin and 27 units of bolus insulin). * Fasting BSG elevated. Increase back to home dose of 23 units. * Postprandial BSGs were reasonably controlled. HS BSG elevated because carbohydrate ratio of 20 not 7 was used. Continue slightly loosened Novolog. 02/08/21 * BSGs yesterday were [phone] mg/dL. Fasting today was 143 mg/dL. * Patient received 31 units of insulin (18 units of basal insulin and 13 units of bolus insulin). * Fasting BSG reasonable. Now receiving dialysis - will continue current regimen and reduce if fasting trends downwards. * Postprandial BSGs trending downwards most likely due to decreased insulin resistance. Loosen CF/CR 02/07/21 * BSGs yesterday were [phone] mg/dL. Fasting today was 150 mg/dL. * Patient received 60 units of insulin (23 units of basal insulin and 37 units of bolus insulin). * Fasting BSG reasonable. Gave slightly reduced dose today due to NPO status. Now receiving dialysis. * Postprandial BSGs elevated. Tightened CR yesterday. Will continue this now that patient is receiving dialysis. Monitor closely. 02/06/21 * BSGs yesterday were [phone] mg/dL * Patient received 40 units of insulin (20 units of basal and 20 units of bolus). * Fasting today is 157 mg/dL. * Will start home dose of Lantus 23 units. Dose daily to monitor any accumulation due to LAMAR. * Tighten Novolog as BSGs trend upwards. background * Ms Irvin is a 60 y/o F with a PMH of T2DM on insulin presenting with LAMAR on CKD. There were plans for a tunneled dialysis catheter placement today but that has been placed on hold as patient has no indication for dialysis. To follow kidney function currently. * BSGs on 02/04/21 were [phone] mg/dL. Patient received 36 units of basal (Lantus 18 units BID) plus 35 units of basal for total of 71 units of insulin. * Fasting this morning was 119 mg/dL. Patient was originally NPO so no Lantus given (100 point difference between 02/04 and 02/05 fasting). Diet re-ordered at lunch. Will order conservative Lantus dose due to continued kidney injury. Overnight checks ordered in case additional basal needed. * Novolog weight-based stress of 2-3 ordered. PLAN FOR INPATIENT GLYCEMIC CONTROL: * Basal insulin * Lantus 23 units daily * Bolus insulin - continue * NovoLog per scale ACHS or Q6hrs while NPO * Goal Range: Low 110 mg/dL - High 140 mg/dL * Correction Factor: 20 mg/dL/unit * Nutritional / Prandial insulin per carb ratio of 1 unit per 7 grams CHO consumed PLAN FOR DISCHARGE: * Reasonable to continue home regimen at this time. * HbA1C is likely somewhat unreliable in ESRD patients d/t interactions between the A1c analyzing technique and high levels of urea in ESRD, reduced RBC life span, iron deficiency anemia, and EPO administration. HbA1c > 7.5% in ESRD patient may overestimate the extent of hyperglycemia in ESRD patients. * Recommend monitoring BSGs throughout parts of the day and adjusting insulin as appropriate.
[2021-02-09] MEDS: ACETAMINOPHEN 325 MG TAB PO PRN (13:42)
[2021-02-09] MEDS ORDERED: EPOETIN ALFA 10,000 UNITS/ML VIAL SQ ONE (13:45)
[2021-02-09 15:52] LABS: Potassium 4.5 mmol/L (3.5-5.1)
[2021-02-09 15:53] LABS: Magnesium 1.8 mg/dl (1.8-2.4)
--- NOTE | 2021-02-09 16:01 | Hospitalist Progress Note ---
Date of Service February 09, 2021 Assessment & Plan (1) Acute kidney injury superimposed on CKD: Plan: Acute kidney injury on CKD III Volume overload Hyperkalemia: secondary to LAMAR Hyperphosphatemia Renal USD:No hydronephrosis. CXR:Cardiomegaly with mild interstitial pulmonary edema. This has developed in the interval. Received IV lasix 80mg x1 Continue Patiromer Calcium Avoid nephrotoxic agents as able Appreciate Nephrology Input Renal/low potassium diet Creatinine and BUN has been creeping up with more symptoms of weakness and tiredness Status post permacatheter placement today She has had another session of dialysis today Has been feeling much better and will be discharged tomorrow and will have continue dialysis as an outpatient Constipation Complains to have some abdominal bloating without nausea and/or vomiting We will try milk of magnesia and Dulcolax We will repeat the dose of milk of magnesia and Dulcolax tonight Chronic diastolic CHF (congestive heart failure): Monitor volume status Was on Lasix as needed Chest remains clear to auscultation HTN (hypertension): BP stable continue amlodipine, carvedilol, hydralazine Anemia: Anemia of Chronic disease Monitor CBC Hemoglobin drop likely dilutional secondary to volume overload No indication for transfusion currently Hemoglobin remains at 8.3 SSS (sick sinus syndrome): Continue Coreg Pacemaker: No acute issues Hypothyroidism: Continue levothyroxine Diabetes mellitus, type II: Hgb A1c 7.4 01/2021 Continue Lantus and NovoLog Monitor BGs DVT Px: SQ heparin She considers renal transplant on the line Will initiate the process through the PCP She will have PRP done tomorrow and will be discharged tomorrow following that Admission and Anticipated Discharge Date Admission Date: February 02, 2021 Subjective 02/07/2021 The patient was seen and examined in medical telemetry unit She has been waiting for insertion of permanent catheter today Complains to have weakness and tiredness 02/08/2021 The patient was seen and examined in medical telemetry unit She has been feeling much better but complains to have constipation and some abdominal bloating She is a status post hemodialysis today 02/09/2021 The patient was seen and examined in medical telemetry unit She is a status post dialysis today Has been feeling a lot better and denies any symptoms except constipation She has had a bowel movement today Review of Systems Review of Systems: All systems reviewed and are unremarkable except as noted below Neurologic: + generalized weakness Physical Exam Physical Exam: Lying in bed comfortably Constitutional: well developed, well nourished and + obese; not ill appearing Eyes: PERRL, conjunctivae normal, anicteric sclerae Neck: trachea midline, no thyromegaly Respiratory: no respiratory distress Auscultation: lungs clear to auscultation bilaterally Cardiovascular: Rate/Rhythm: regular rate and regular rhythm; not tachycardic Gastrointestinal (Abdomen): normal bowel sounds, soft, nontender, no hepatosplenomegaly Musculoskeletal: No acute arthritis in any joint Neurologic: moves all extremities Psychiatric: A+Ox3, euthymic affect Lymphatic: no cervical or axillary lymphadenopathy Results & Data Results & Data ([facility]) Vital Signs (Past 12 Hours) Vital Signs Temp Pulse Pulse Pulse Resp BP BP 02/09/21 15:29 75 02/09/21 15:07 37.1 C 78 18 136/63 02/09/21 12:44 36.8 C 74 143/80 H 02/09/21 12:20 66 148/63 H 02/09/21 12:00 61 138/68 02/09/21 11:40 60 133/63 02/09/21 11:20 63 137/63 02/09/21 11:00 61 139/72 02/09/21 10:40 66 151/66 H 02/09/21 10:20 67 134/73 02/09/21 10:00 64 149/61 H 02/09/21 09:40 72 148/68 H 02/09/21 09:35 75 156/84 H 02/09/21 09:25 36.8 C 74 02/09/21 08:07 36.8 C 71 18 143/71 H 02/09/21 07:32 60 02/09/21 04:06 36.8 C 79 18 126/62 Pulse Ox 02/09/21 15:29 02/09/21 15:07 96 02/09/21 12:44 02/09/21 12:20 02/09/21 12:00 02/09/21 11:40 02/09/21 11:20 02/09/21 11:00 02/09/21 10:40 02/09/21 10:20 02/09/21 10:00 02/09/21 09:40 02/09/21 09:35 02/09/21 09:25 02/09/21 08:07 96 02/09/21 07:32 02/09/21 04:06 97 Laboratory Results Short CBC 02/09/21 Range/Units 06:48 WBC 8.54 (4.8-10.8) K/uL Hgb 8.6 L (12.0-16.0) g/dL Hct 27.4 L (37-47) % Plt Count 262 (130-400) K/uL BMP 02/09/21 02/09/21 06:48 15:31 Sodium 137 Potassium 4.5 Chloride 108 H Carbon Dioxide 27 BUN 35 H Creatinine 3.89 H D Glucose 165 H Calcium 9.5 Medications Administered Current Inpatient Medications Acetaminophen (Acetaminophen 325 Mg Tab) 650 mg PO Q4H PRN PRN Reason: Pain or Fever Stop: 03/04/21 18:13 Last Admin: 02/09/21 13:42 Dose: 650 mg Documented by: Amlodipine Besylate (Amlodipine Besylate 5 Mg Tab) 5 mg PO QAM [facility] Stop: 03/05/21 08:59 Last Admin: 02/09/21 08:48 Dose: 5 mg Documented by: Atorvastatin Calcium (Atorvastatin 40 Mg Tab) 40 mg PO PM [facility] Stop: 03/04/21 20:59 Last Admin: 02/08/21 20:28 Dose: 40 mg Documented by: Calcium Citrate (Calcium Citrate 950 Mg Tab) 950 mg PO BID [facility] Stop: 03/04/21 20:59 Last Admin: 02/09/21 08:48 Dose: 950 mg Documented by: Carvedilol (Carvedilol 12.5 Mg Tab) 12.5 mg PO BID [facility] Stop: 03/04/21 20:59 Last Admin: 02/09/21 08:48 Dose: 12.5 mg Documented by: Citalopram Hydrobromide (Citalopram 40 Mg Tab) 40 mg PO QAM [facility] Stop: 03/05/21 08:59 Last Admin: 02/09/21 08:48 Dose: 40 mg Documented by: Dextrose (Dextrose 50% 50 Ml Syringe) 25 - 50 ml IV UD PRN; Protocol PRN Reason: Hypoglycemia Protocol Stop: 03/04/21 18:13 Diphenhydramine HCl (Diphenhydramine Capsule 25 Mg Cap) 25 mg PO TID PRN PRN Reason: Itching Stop: 03/04/21 19:01 Last Admin: 02/07/21 20:05 Dose: 25 mg Documented by: Docusate Sodium (Docusate Sodium 100 Mg Cap) 100 mg PO BID [facility] Stop: 03/08/21 17:44 Last Admin: 02/09/21 08:49 Dose: 100 mg Documented by: Gabapentin (Gabapentin 100 Mg Cap) 100 mg PO HS [facility] Stop: 03/06/21 20:59 Last Admin: 02/08/21 20:28 Dose: 100 mg Documented by: Glucagon (Glucagon For Inj 1 Mg Vial) 1 mg SQ UD PRN; Protocol PRN Reason: Hypoglycemia Protocol Stop: 03/04/21 18:13 Glucose (Glucose 10 Tabs/Tube) 4 - 8 tabs PO UD PRN; Protocol PRN Reason: Hypoglycemia Protocol Stop: 03/04/21 18:13 Glucose (Glucose 40% Gel 15 Gm Tube) 15 - 30 gm PO UD PRN; Protocol PRN Reason: Hypoglycemia Protocol Stop: 03/04/21 18:13 Heparin Sodium (Porcine) (Heparin Sod 5,000 Unit/0.5 Ml Vial) 5,000 units SQ Q8 [facility] Stop: 03/04/21 21:59 Last Admin: 02/09/21 13:38 Dose: 5,000 units Documented by: Hydralazine HCl (Hydralazine Tab 50 Mg Tab) 100 mg PO TID [facility] Stop: 03/04/21 20:59 Last Admin: 02/09/21 13:43 Dose: 100 mg Documented by: Insulin Aspart (Insulin Aspart 100 Units/Ml 3 Ml Pen) 0 units SC ACHS [facility] Stop: 03/09/21 16:29 Last Admin: 02/09/21 13:35 Dose: 4 units Documented by: Insulin Glargine (Insulin Glargine Solostar 100 Units/Ml 3 Ml Pen) 23 units SC DAILY [facility] Stop: 03/11/21 08:59 Last Admin: 02/09/21 08:51 Dose: 23 units Documented by: Levothyroxine Sodium (Levothyroxine Sodium 100 Mcg Tablet) 100 mcg PO DAILYBB [facility] Stop: 03/05/21 06:29 Last Admin: 02/09/21 05:42 Dose: 100 mcg Documented by: Lorazepam (Lorazepam 0.5 Mg Tab) 0.5 mg PO BID PRN PRN Reason: Anxiety Stop: 03/04/21 18:13 Last Admin: 02/06/21 02:45 Dose: 0.5 mg Documented by: Miscellaneous (Carbohydrates For Hypoglycemia ) 15 - 30 gm PO UD PRN PRN Reason: Hypoglycemia Protocol Stop: 03/04/21 18:13 Miscellaneous Information (Pharmacy Glycemic Mgmt Consult) 1 ea N/A UD PRN PRN Reason: Consult Stop: 03/06/21 17:08 Ondansetron HCl (Ondansetron Inj 2 Mg/Ml 2 Ml Vial) 4 mg IV Q6H PRN PRN Reason: Nausea And Vomiting Stop: 03/05/21 08:39 Pantoprazole Sodium (Pantoprazole 40 Mg Tab) 40 mg PO QAM [facility] Stop: 03/05/21 08:59 Last Admin: 02/09/21 08:49 Dose: 40 mg Documented by: Polyethylene Glycol (Polyethylene (Miralax) 17 Gm Pack) 17 gm PO DAILY PRN PRN Reason: Constipation Stop: 03/08/21 17:42 Last Admin: 02/08/21 13:13 Dose: 17 gm Documented by: Vitamin B Complex/Folic Acid (Ne[facility]caps) [facility] [place]: 03/05/21 08:59 Last Admin: 02/09/21 08:49 Dose: 1 cap Documented by:
[2021-02-09] MEDS: ATORVASTATIN 40 MG TAB PO SCH (20:34)
[2021-02-09] MEDS: GABAPENTIN 100 MG CAP PO SCH (20:34)
[2021-02-09] MEDS: POLYETHYLENE (MIRALAX) 17 GM PACK PO PRN (20:42)
[2021-02-10] MEDS: ACETAMINOPHEN 325 MG TAB PO PRN ×2 (01:07→12:25)
[2021-02-10] MEDS: HEPARIN SOD 5,000 UNIT/0.5 ML VIAL SQ SCH (06:08)
[2021-02-10] MEDS: LEVOTHYROXINE SODIUM 100 MCG TABLET PO SCH (06:08)
[2021-02-10] MEDS: INSULIN ASPART 100 UNITS/ML 3 ML PEN SC SCH ×2 (09:08→12:29)
[2021-02-10] MEDS: amLODIPine BESYLATE 5 MG TAB PO SCH (09:09)
[2021-02-10] MEDS: NEPHROCAPS PO SCH (09:10)
[2021-02-10] MEDS: CALCIUM CITRATE 950 MG TAB PO SCH (09:10)
[2021-02-10] MEDS: CITALOPRAM 40 MG TAB PO SCH (09:10)
[2021-02-10] MEDS: DOCUSATE SODIUM 100 MG CAP PO SCH (09:10)
[2021-02-10] MEDS: PANTOprazole 40 MG TAB PO SCH (09:10)
[2021-02-10] MEDS: INSULIN GLARGINE SOLOSTAR 100 UNITS/ML 3 ML PEN SC SCH (09:11)
[2021-02-10] MEDS: carvediloL 12.5 MG TAB PO SCH (09:11)
[2021-02-10] MEDS: hydrALAZINE TAB 50 MG TAB PO SCH (09:11)
[2021-02-10 10:54] LABS: BUN Creatinine Ratio 7.1 (10-20); Calcium 9.4 mg/dl (8.5-10.1); Creatinine Clr Calc Pharmacy 21.5 ml/min; Est GFR (Non-African American) 13.8 ml/min; Potassium 5.3 mmol/L (3.5-5.1)
[2021-02-10] MEDS ORDERED: TORSEMIDE 100 MG TAB PO SCH (11:30)
--- NOTE | 2021-02-10 12:09 | Hospitalist Progress Note ---
Date of Service February 10, 2021 Assessment & Plan (1) Acute kidney injury superimposed on CKD: Plan: Acute kidney injury on CKD III Volume overload Hyperkalemia: secondary to LAMAR Hyperphosphatemia Renal USD:No hydronephrosis. CXR:Cardiomegaly with mild interstitial pulmonary edema. This has developed in the interval. Received IV lasix 80mg x1 Continue Patiromer Calcium Avoid nephrotoxic agents as able Appreciate Nephrology Input Renal/low potassium diet Creatinine and BUN has been creeping up with more symptoms of weakness and tiredness Has had permacatheter placement and has been having dialysis Clinically much better today and outpatient dialysis has been set up already Discussed with the internal medicine physician assistant and she will be discharged today and will have dialysis on Friday She was given torsemide 100 mg daily as per internal medicine physician assistant Constipation Complains to have some abdominal bloating without nausea and/or vomiting We will try milk of magnesia and Dulcolax We will repeat the dose of milk of magnesia and Dulcolax tonight Chronic diastolic CHF (congestive heart failure): Monitor volume status Was on Lasix as needed Chest remains clear to auscultation HTN (hypertension): BP stable continue amlodipine, carvedilol, hydralazine Anemia: Anemia of Chronic disease Monitor CBC Hemoglobin drop likely dilutional secondary to volume overload No indication for transfusion currently Hemoglobin remains at 8.3 SSS (sick sinus syndrome): Continue Coreg Pacemaker: No acute issues Hypothyroidism: Continue levothyroxine Diabetes mellitus, type II: Hgb A1c 7.4 01/2021 Continue Lantus and NovoLog Monitor BGs DVT Px: SQ heparin She considers renal transplant on the line Will initiate the process through the PCP We will discharge her this afternoon Admission and Anticipated Discharge Date Admission Date: February 02, 2021 Subjective 02/07/2021 The patient was seen and examined in medical telemetry unit She has been waiting for insertion of permanent catheter today Complains to have weakness and tiredness 02/08/2021 The patient was seen and examined in medical telemetry unit She has been feeling much better but complains to have constipation and some abdominal bloating She is a status post hemodialysis today 02/09/2021 The patient was seen and examined in medical telemetry unit She is a status post dialysis today Has been feeling a lot better and denies any symptoms except constipation She has had a bowel movement today 02/10/2021 The patient was seen and examined in medical telemetry unit She has been feeling much better Denies any symptoms except constipation without any abdominal bloating Review of Systems Review of Systems: All systems reviewed and are unremarkable except as noted below Neurologic: + generalized weakness Physical Exam Physical Exam: Lying in bed comfortably Constitutional: well developed, well nourished and + obese; not ill appearing Eyes: PERRL, conjunctivae normal, anicteric sclerae Neck: trachea midline, no thyromegaly Respiratory: no respiratory distress Auscultation: lungs clear to auscultation bilaterally Cardiovascular: Rate/Rhythm: regular rate and regular rhythm; not tachycardic Gastrointestinal (Abdomen): normal bowel sounds, soft, nontender, no hepatosplenomegaly Musculoskeletal: No acute arthritis in any joint Neurologic: moves all extremities Psychiatric: A+Ox3, euthymic affect Lymphatic: no cervical or axillary lymphadenopathy Results & Data Results & Data ([facility]) Vital Signs (Past 12 Hours) Vital Signs Temp Pulse Pulse Resp BP Pulse Ox 02/10/21 11:58 36.8 C 82 18 136/56 L 96 02/10/21 07:19 36.7 C 67 18 132/71 97 02/10/21 03:37 36.8 C 72 16 129/56 L 97 Laboratory Results BMP 02/09/21 02/10/21 15:31 09:55 Sodium 136 Potassium 4.5 5.3 H D Chloride 106 Carbon Dioxide 27 BUN 24 H Creatinine 3.38 H D Glucose 278 H Calcium 9.4 Medications Administered Current Inpatient Medications Acetaminophen (Acetaminophen 325 Mg Tab) 650 mg PO Q4H PRN PRN Reason: Pain or Fever Stop: 03/04/21 18:13 Last Admin: 02/10/21 01:07 Dose: 650 mg Documented by: Amlodipine Besylate (Amlodipine Besylate 5 Mg Tab) 5 mg PO QAM [facility] Stop: 03/05/21 08:59 Last Admin: 02/10/21 09:09 Dose: 5 mg Documented by: Atorvastatin Calcium (Atorvastatin 40 Mg Tab) 40 mg PO PM [facility] Stop: 03/04/21 20:59 Last Admin: 02/09/21 20:34 Dose: 40 mg Documented by: Calcium Citrate (Calcium Citrate 950 Mg Tab) 950 mg PO BID [facility] Stop: 03/04/21 20:59 Last Admin: 02/10/21 09:10 Dose: 950 mg Documented by: Carvedilol (Carvedilol 12.5 Mg Tab) 12.5 mg PO BID [facility] Stop: 03/04/21 20:59 Last Admin: 02/10/21 09:11 Dose: 12.5 mg Documented by: Citalopram Hydrobromide (Citalopram 40 Mg Tab) 40 mg PO QAM [facility] Stop: 03/05/21 08:59 Last Admin: 02/10/21 09:10 Dose: 40 mg Documented by: Dextrose (Dextrose 50% 50 Ml Syringe) 25 - 50 ml IV UD PRN; Protocol PRN Reason: Hypoglycemia Protocol Stop: 03/04/21 18:13 Diphenhydramine HCl (Diphenhydramine Capsule 25 Mg Cap) 25 mg PO TID PRN PRN Reason: Itching Stop: 03/04/21 19:01 Last Admin: 02/07/21 20:05 Dose: 25 mg Documented by: Docusate Sodium (Docusate Sodium 100 Mg Cap) 100 mg PO BID [facility] Stop: 03/08/21 17:44 Last Admin: 02/10/21 09:10 Dose: 100 mg Documented by: Gabapentin (Gabapentin 100 Mg Cap) 100 mg PO HS [facility] Stop: 03/06/21 20:59 Last Admin: 02/09/21 20:34 Dose: 100 mg Documented by: Glucagon (Glucagon For Inj 1 Mg Vial) 1 mg SQ UD PRN; Protocol PRN Reason: Hypoglycemia Protocol Stop: 03/04/21 18:13 Glucose (Glucose 10 Tabs/Tube) 4 - 8 tabs PO UD PRN; Protocol PRN Reason: Hypoglycemia Protocol Stop: 03/04/21 18:13 Glucose (Glucose 40% Gel 15 Gm Tube) 15 - 30 gm PO UD PRN; Protocol PRN Reason: Hypoglycemia Protocol Stop: 03/04/21 18:13 Heparin Sodium (Porcine) (Heparin Sod 5,000 Unit/0.5 Ml Vial) 5,000 units SQ Q8 [facility] Stop: 03/04/21 21:59 Last Admin: 02/10/21 06:08 Dose: 5,000 units Documented by: Hydralazine HCl (Hydralazine Tab 50 Mg Tab) 100 mg PO TID [facility] Stop: 03/04/21 20:59 Last Admin: 02/10/21 09:11 Dose: 100 mg Documented by: Insulin Aspart (Insulin Aspart 100 Units/Ml 3 Ml Pen) 0 units SC ACHS [facility] Stop: 03/09/21 16:29 Last Admin: 02/10/21 09:08 Dose: 9 units Documented by: Insulin Glargine (Insulin Glargine Solostar 100 Units/Ml 3 Ml Pen) 23 units SC DAILY [facility] Stop: 03/11/21 08:59 Last Admin: 02/10/21 09:11 Dose: 23 units Documented by: Levothyroxine Sodium (Levothyroxine Sodium 100 Mcg Tablet) 100 mcg PO DAILYBB [facility] Stop: 03/05/21 06:29 Last Admin: 02/10/21 06:08 Dose: 100 mcg Documented by: Lorazepam (Lorazepam 0.5 Mg Tab) 0.5 mg PO BID PRN PRN Reason: Anxiety Stop: 03/04/21 18:13 Last Admin: 02/06/21 02:45 Dose: 0.5 mg Documented by: Miscellaneous (Carbohydrates For Hypoglycemia ) 15 - 30 gm PO UD PRN PRN Reason: Hypoglycemia Protocol Stop: 03/04/21 18:13 Miscellaneous Information (Pharmacy Glycemic Mgmt Consult) 1 ea N/A UD PRN PRN Reason: Consult Stop: 03/06/21 17:08 Ondansetron HCl (Ondansetron Inj 2 Mg/Ml 2 Ml Vial) 4 mg IV Q6H PRN PRN Reason: Nausea And Vomiting Stop: 03/05/21 08:39 Last Admin: 02/09/21 21:53 Dose: 4 mg Documented by: Pantoprazole Sodium (Pantoprazole 40 Mg Tab) [facility] [place] Stop: 03/05/21 08:59 Last Admin: 02/10/21 09:10 Dose: 40 mg Documented by: Polyethylene Glycol (Polyethylene (Miralax) 17 Gm Pack) 17 gm PO DAILY PRN PRN Reason: Constipation Stop: 03/08/21 17:42 Last Admin: 02/09/21 20:42 Dose: 17 gm Documented by: Torsemide (Torsemide 100 Mg Tab) 100 mg PO QAM [facility] Stop: 03/12/21 11:29 Vitamin B Complex/Folic Acid (Nephrocaps) 1 cap [facility] [place] Stop: 03/05/21 08:59 Last Admin: 02/10/21 09:10 Dose: 1 cap Documented by:
--- NOTE | 2021-02-11 07:38 | Discharge Summary ---
Date of Service February 11, 2021 Admission HPI Per Admitting Provider 60-year-old female with PMH DM type II, CKD, hypothyroidism, MINISTERIO on CPAP, chronic diastolic CHF, SSS s/p pacemaker, HTN, history of endometrial cancer s/p hysterectomy, and other problems below who presents the ED by referral of outpatient electrical and instrumentation mechanic for worsening renal labs. Patient recently admitted to [facility] 01/18 through 01/26 for LAMAR on CKD requiring dialysis. Etiology of LAMAR was unclear however was felt to be possibly secondary to Ozempic and previous use of Metformin. Patient had a temporary hemodialysis catheter placed during admission and received 2 sessions of hemodialysis on 01/20 and 01/22. Catheter was subsequently removed before discharge. Creatinine on discharge 5.5. Outpatient labs on 01/31 show creatinine 6.1. Patient reports she continues to feel poorly. She reports she feels fatigued and has generalized itching. She reports progressive shortness of breath since her discharge from the hospital. Reports weight has been stable. Took 1 dose of as needed Lasix at home. Denies chest pain. Reports she continues to make urine. Denies dysuria. No lightheadedness, dizziness, diaphoresis, syncopal events. Denies abdominal pain, nausea, vomiting, diarrhea. No fevers or chills. In the ED, labs show creatinine 6.4. CXR is suggestive of mild pulmonary edema. Patient received Lasix 80 mg IV. Admission Exam Per Admitting Provider Vitals signs as noted above General Appearance:Morbidly Obese, no apparent distress Head: normocephalic, Atraumatic Eyes: normal inspection, EOMI Neck: supple, Trachea midline Respiratory/Chest: Normal breath sounds, CTA, No accessory muscle use Cardiovascular: S1, S2, No murmur Abdomen/GI:Soft, Mild generalized tender, Bowel sounds present Extremities/Musculoskeletal:normal inspection, B/L LE edema, chronic venous stasis changes Neurologic/Psych:AAOX3, grossly no focal neurological deficits Skin: normal color, warm Principal Diagnosis Acute kidney injury superimposed CKD, end-stage renal disease on hemodialysis, chronic diastolic CHF, hypertension, type 2 diabetes mellitus Discharge Exam Constitutional well developed, well nourished and + obese; not ill appearing Eyes PERRL, conjunctivae normal, anicteric sclerae Neck trachea midline, no thyromegaly Respiratory no respiratory distress Auscultation: lungs clear to auscultation bilaterally Cardiovascular Rate/Rhythm: regular rate and regular rhythm; not tachycardic Gastrointestinal (Abdomen) normal bowel sounds, soft, nontender, no hepatosplenomegaly Neurologic moves all extremities Psychiatric A+Ox3, euthymic affect Lymphatic no cervical or axillary lymphadenopathy Discharge Data Allergies Allergy/AdvReac Type Severity Reaction Status Date / Time CHIDI Inhibitors AdvReac Mild COUGH Verified 02/07/21 12:20 Consultations 02/02/21 16:49 ED Decision to Admit Stat 02/02/21 18:14 Consult Nephrology Routine 02/06/21 09:15 Consult Vascular Surgery Routine Procedures Performed Operation Date: 02/07/21 13:00 Actual Procedures p Insertion of Perm Catheter, Right Internal Jugular Approach, Ultrasound localization of Right Internal Jugular Vein, Fluoroscopy for Positioning, Moderate Sedation [id number](Right) - Marko Tejeda MD Ordered Studies 02/02/21 19:09 US renal/blad retro comp Routine 02/07/21 13:00 EV cvc insrt tunnel wo prt/inside sales person Routine 02/07/21 13:09 US EV guide vascular access Routine Hospital Course (1) Acute kidney injury superimposed on CKD: Acute kidney injury on CKD III Volume overload Hyperkalemia: secondary to LAMAR Hyperphosphatemia Renal USD:No hydronephrosis. CXR:Cardiomegaly with mild interstitial pulmonary edema. This has developed in the interval. Received IV lasix 80mg x1 Continue Patiromer Calcium Avoid nephrotoxic agents as able Appreciate Nephrology Input Renal/low potassium diet Creatinine and BUN has been creeping up with more symptoms of weakness and tiredness Has had permacatheter placement and has been having dialysis Clinically much better today and outpatient dialysis has been set up already Discussed with the electrical and instrumentation mechanic and she will be discharged today and will have dialysis on Friday She was given torsemide 100 mg daily as per electrical and instrumentation mechanic Constipation Complains to have some abdominal bloating without nausea and/or vomiting We will try milk of magnesia and Dulcolax We will repeat the dose of milk of magnesia and Dulcolax tonight Chronic diastolic CHF (congestive heart failure): Monitor volume status Was on Lasix as needed Chest remains clear to auscultation HTN (hypertension): BP stable continue amlodipine, carvedilol, hydralazine Anemia: Anemia of Chronic disease Monitor CBC Hemoglobin drop likely dilutional secondary to volume overload No indication for transfusion currently Hemoglobin remains at 8.3 SSS (sick sinus syndrome): Continue Coreg Pacemaker: No acute issues Hypothyroidism: Continue levothyroxine Diabetes mellitus, type II: Hgb A1c 7.4 01/2021 Continue Lantus and NovoLog Monitor BGs DVT Px: SQ heparin She considers renal transplant on the line Will initiate the process through the PCP We will discharge her this afternoon Total Time Total Time Spent Total Time Spent (In Minutes): 35 minutes Discharge Plan Discharge Items Patient Disposition: Home - Home Health Services Reason For Visit: LAMAR ON CKD Discharge Diagnosis: Acute kidney injury superimposed CKD, end-stage renal disease on hemodialysis, chronic diastolic CHF, hypertension, type 2 diabetes mellitus Condition on Discharge: Good Activity: Resume your previous activity Non-emergency contact: Primary Care Provider Call non-emergency contact if: you have any medication questions and your symptoms worsen Follow-up/Referrals: Luis Fernando Rojas MD [Primary Care Provider] - (Date & Time 02/16/2021 3:00 PM Provider Luis Fernando Rojas MD [facility] ) Diet: Carb Consistent or DM2 and Dialysis Renal Addtl Attending Provider Instructions: Please take extreme precaution to avoid fall Please continue hemodialysis as an outpatient as a scheduled Continue Demadex 100 mg daily Keep appointment with your primary care provider and have a discussion about renal transplant down the line Pending Studies at Discharge: No Stand-Alone Forms: My [employer], Smoking Cessation Medications and DC Order Prescriptions: New torsemide 100 mg Tablet 100 mg PO QAM Qty: 30 RF: 0 Continued Lantus U-100 Insulin 100 unit/mL Solution 23 unit SUBCUT QAM RF: 0 citalopram 40 mg Tablet 40 mg PO QAM RF: 0 levothyroxine [Synthroid] 100 mcg Tablet 100 mcg PO QAM RF: 0 Humalog U-100 Insulin 100 unit/mL Cartridge 1 sliding scale dose SUBCUT UD RF: 0 atorvastatin 40 mg Tablet 40 mg PO PM RF: 0 pantoprazole 40 mg Tablet,Delayed Release (Dr/Ec) 40 mg PO QAM RF: 0 melatonin 10 mg Tablet 10 mg PO HS PRN (Reason: Insomnia) RF: 0 carvedilol 12.5 mg Tablet 12.5 mg PO BID 30 Days Qty: 60 RF: 0 amlodipine [Norvasc] 5 mg Tablet 5 mg PO QAM 30 Days Qty: 30 RF: 0 Renal Caps 1 mg Capsule 1 cap PO QAM 30 Days Qty: 30 RF: 0 hydralazine 50 mg Tablet 100 mg PO TID 30 Days Qty: 180 RF: 0 acetaminophen [Tylenol Extra Strength] 500 mg Tablet 100 mg PO Q6H PRN (Reason: Pain) RF: 0 diphenhydramine HCl [Benadryl Allergy] 25 mg Tablet 25 mg PO TID PRN (Reason: Itching) RF: 0 calcium citrate-vitamin D3 [Citracal + D Maximum] 315 mg-6.25 mcg (250 unit) tablet 1 tab PO BID RF: 0 lorazepam 0.5 mg tablet 0.5 mg PO BID PRN (Reason: Anxiety) RF: 0 Discontinued furosemide 40 mg tablet 40 mg PO MOWEFR PRN (Reason: edema) Qty: 12 RF: 0 Discharge Orders: Discharge Order (Routine); Ordered 02/10/21 Ordered By: Romario Looney/Other Patient Handouts: Kidney Disease Protein, Low Potassium Diet Dc, ED Diet for Chronic Kidney Disease Admission Data Admit Date/Time: 02/02/21 17:04 Attending Provider: Romario Minor Admit Provider: Perry Salguero Primary Care Provider: Luis Fernando Rojas Other Providers: Perry Salguero ; Sameer Hassan Eugene J Other Interventions: Discharge Summary Assessment (RN) Last Done: 02/10/21 12:37
== END 2021-02-10 13:14 | disposition home or self-care (01) | DRG 674 ==
LOC: ED 13:32 → SUATTDRO 17:04 → 2W 17:04

== ENCOUNTER 2021-04-24 04:18 | Inpatient (IN) ==
[2021-04-24] MEDS ORDERED: FAMOTIDINE 20MG IV PUSH 20 MG/5 ML SYR IV STA (05:07)
[2021-04-24] MEDS ORDERED: ONDANSETRON INJ 2 MG/ML 2 ML VIAL IV STA ×2 (05:07→07:28)
[2021-04-24 05:20] LABS: Basophils # (auto) 0.06 K/uL (0-0.2); Basophils % (auto) 0.5 %; Eosinophils # (auto) 0.18 K/uL (0-0.5); Eosinophils % (auto) 1.5 %; Hematocrit (blood only) 25.6 % (37-47); Hemoglobin 8.2 g/dL (12.0-16.0); Immature Granulocytes # (auto) 0.04 K/uL (0.00-0.02); Immature Granulocytes % (auto) 0.3 %; Lymphocytes # (auto) 2.54 K/uL (1.2-3.4); Lymphocytes % (auto) 21.7 %; Mean Corpuscular Hemoglobin 31.4 pg (25-34); Mean Corpuscular Volume 98.1 fL (80-100); Mean Platelet Volume 9.1 fL (7.4-10.4); Monocytes # (auto) 0.72 K/uL (0.11-0.59); Monocytes % (auto) 6.1 %; Neutrophils # (auto) 8.18 K/uL (1.4-6.5); Neutrophils % (auto) 69.9 %; Platelet Count 270 K/uL (130-400); RDW Coefficient of Variation 14.8 % (11.5-14.5); RDW Standard Deviation 50.7 fL (36.4-46.3); Red Blood Count 2.61 M/uL (4.2-5.4); White Blood Count 11.72 K/uL (4.8-10.8)
[2021-04-24 05:30] LABS: Partial Thromboplastin Ratio 1.1; Partial Thromboplastin Time 27.7 Seconds (21.0-31.0); Prothrombin Time 10.6 Seconds (9.0-12.0)
[2021-04-24 05:54] LABS: Albumin Level 2.7 gm/dl (3.4-5.0); BUN Creatinine Ratio 10.3 (10-20); Calcium 8.7 mg/dl (8.5-10.1); Creatinine Clr Calc Pharmacy 22.5 ml/min; Est GFR (African American) 17.3 ml/min; Magnesium 2.2 mg/dl (1.8-2.4); Potassium 4.1 mmol/L (3.5-5.1)
[2021-04-24 05:59] LABS: Albumin Globulin Ratio 0.7 (0.9-2); Bilirubin,Total 0.4 mg/dl (0.2-1); Globulin 3.8 gm/dl (2.5-4.0); Total Protein 6.5 gm/dl (6.4-8.2)
--- NOTE | 2021-04-24 07:16 | CT Scan Report ---
ABDOMEN AND PELVIS CT WITHOUT CONTRAST CT DOSE: 1758.11 mGy.cm HISTORY: Acute generalized abdominal pain with nausea and vomiting abd pain, n/v, on dialysis TECHNIQUE: Multiaxial CT images of the abdomen and pelvis were performed without contrast. A dose lo wering technique was utilized adhering to the principles of ALARA. COMPARISON STUDY: CT abdomen and pelvis 10/31/2017 FINDINGS: Trace pericardial effusion. Partially imaged pacer leads. Clear lung bases. No pneumatosis or pneumoperitoneum. Limited evaluation of the solid abdominal organs without the use of IV contrast. The unenhanced spleen, moderately atrophic pancreas, adrenal glands and liver appear unremarkable. C holecystectomy. Nonspecific bilateral perinephric stranding. There is a 3 mm calcification noted within the interpola r right kidney. Mild renal vascular calcifications. No ureteral calculi or hydronephrosis. Decompress ed urinary bladder with mild wall thickening. Hysterectomy. No adnexal mass lesion. Atherosclerosis o f the aorta without aneurysm. There is no adenopathy. Fluid-filled distal esophagus. Postoperative changes of Chente-en-Y gastric bypass. No bowel obstructio n or bowel wall thickening. Colonic diverticulosis without acute diverticulitis. Mild to moderate fec al retention. Normal appendix. Ventral abdominal wall hernias are noted, the largest with diastases o f 4.4 cm within the periumbilical distribution contains nonobstructed loops of small bowel with mesen teric fat. No acute fracture. Degenerative changes of the spine, pelvis and hips. Numerous Schmorl's nodes of the vertebral bodies. IMPRESSION: 1. No bowel obstruction or bowel wall thickening. Normal appendix. 2. Small ventral abdominal wall hernia contains mesenteric fat and nonobstructed loops of small bowel . 3. Colonic diverticulosis. 4. Nonobstructing right nephrolithiasis. 5. Additional findings as above. ACT 112: Negative or not required by law. The above report was generated using voice recognition software. It may contain grammatical, syntax o r spelling errors. Electronically signed by: Lee Ghosh M.D. 04/24/2021 7:15 AM
--- NOTE | 2021-04-24 08:09 | Emergency Department Note ---
History of Present Illness General Chief complaint: GI Assessment Stated complaint: VOMITING BLOOD Time Seen by Provider: 04/24/21 04:50 History of Present Illness Maximum Pain Intensity: 7 This is a 60-year-old female presenting to the emergency department for evaluation of nausea with bloody emesis. The patient states that she got up early today as she had a scheduled procedure to remove melanoma, and felt very sick to her stomach. She vomited at home and believes it was blood. The patient has a history of diabetes, chronic kidney disease requiring dialysis (MWF), and past surgical history of gastric bypass. The patient has not had fevers or chills. No significant chest pain. She does have some abdominal cramping with her nausea. She did get vaccinated against Covid x3. She is not on blood thinners and rates her current discomfort a 01/27. Home Medications Medication Instructions Recorded Confirmed Type atorvastatin 40 mg tablet 40 mg PO HS 07/05/18 04/24/21 History citalopram 40 mg tablet 40 mg PO QAM 07/05/18 04/24/21 History insulin glargine 100 unit/mL 23 unit SUBCUT QAM 07/05/18 04/24/21 History subcutaneous solution (Lantus U-100 Insulin) insulin lispro 100 unit/mL 1 sliding scale dose SUBCUT UD 07/05/18 04/24/21 History subcutaneous cartridge (Humalog U-100 Insulin) levothyroxine 100 mcg tablet 100 mcg PO QAM 07/05/18 04/24/21 History (Synthroid) pantoprazole 40 mg tablet,delayed 40 mg PO QAM 07/05/18 04/24/21 History release melatonin 10 mg tablet 10 mg PO HS PRN 01/18/21 04/24/21 History hydralazine 50 mg tablet 100 mg PO TID 30 Days #180 tab 01/26/21 04/24/21 Rx acetaminophen 500 mg tablet 100 mg PO Q6H PRN 02/02/21 04/24/21 History (Tylenol Extra Strength) calcium citrate 315 mg 1 tab PO BID 02/02/21 04/24/21 History calcium-vitamin D3 6.25 mcg (250 unit) tablet (Citracal + Vitamin D Maximum) diphenhydramine HCl 25 mg tablet 25 mg PO TID PRN 02/02/21 04/24/21 History (Benadryl Allergy) lorazepam 0.5 mg tablet 0.5 mg PO BID PRN 02/02/21 04/24/21 History torsemide 100 mg tablet 100 mg PO QAM #30 tab 02/10/21 04/24/21 Rx amlodipine 5 mg tablet (Norvasc) 5 mg PO QAM 04/24/21 04/24/21 History aspirin 81 mg tablet 81 mg PO DAILY 04/24/21 04/24/21 History carvedilol 12.5 mg tablet (Coreg) 12.5 mg PO BID 04/24/21 04/24/21 History gabapentin 600 mg tablet 600 mg PO HS 04/24/21 04/24/21 History (Neurontin) nitroglycerin 0.4 mg sublingual 0.4 mg SUBLINGUAL Q5M PRN 04/24/21 04/24/21 History tablet (Nitrostat) sevelamer carbonate 800 mg tablet 1,600 mg PO TIDM 04/24/21 04/24/21 History (Renvela) vit B complx, C-iron 8 mg-folic 1 tab PO DAILY 04/24/21 04/24/21 History acid 800 mcg-D3 1,000 unit-zinc tablet (ProRenal) Allergies Allergy/AdvReac Type Severity Reaction Status Date / Time CHIDI Inhibitors AdvReac Mild COUGH Verified 04/24/21 07:54 Past Med/Surg History Medical History Chronic diastolic CHF (congestive heart failure) CKD (chronic kidney disease), stage III Depression Diabetes mellitus, type II Difficult airway for intubation Endometrial carcinoma (02/23/13) "S/P hysterectomy " ESRD (end stage renal disease) on dialysis GERD (gastroesophageal reflux disease) History of melanoma HLD (hyperlipidemia) HTN (hypertension) Hypothyroidism MDD (major depressive disorder) MINISTERIO on CPAP Pacemaker SSS (sick sinus syndrome) Pt admitted for elective pacemaker due to SSS. She underwent procedure without any complications. Monitored over night and discharged home. 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 Beliefs That Will Affect Care: None marital status: Current Living Situation: Spouse Current Living Situation Comment: LIVES WITH Feels Safe at Home: Yes Assistive Devices: Oxygen - Continuous Review of Systems A total of 10 systems reviewed and were otherwise negative Physical Exam Vital Signs Vital Signs - 24 hr 04/24/21 04:22 04/24/21 04:59 04/24/21 06:02 Temperature 37.0 C Temperature Source Oral Pulse Rate 64 Pulse Rate [Bilateral Apical] 65 77 Pulse Rate from SpO2 Sensor Respiratory Rate 18 20 20 Respiratory Effort / Characteristics Non-Labored Spontaneous Non-Labored Respiratory Depth Normal Normal Respiratory Pattern Regular Blood Pressure 139/67 Blood Pressure [Left Arm] 138/48 L 124/47 L Blood Pressure Mean 91 Blood Pressure Mean [Left Arm] 78 72 Blood Pressure Position Sitting Blood Pressure Position [Left Arm] Lying Pulse Oximetry 99 95 97 Oxygen Delivery Method Room Air Room Air Room Air Oxygen Flow Rate Sepsis Recent Fever Within 48 Hours No Sepsis New/Unexplained Change in Mental Status N/A Sepsis Action Taken by Nursing No Action Required 04/24/21 07:29 Temperature Temperature Source Pulse Rate 75 Pulse Rate [Bilateral Apical] Pulse Rate from SpO2 Sensor 76 Respiratory Rate 23 Respiratory Effort / Characteristics Respiratory Depth Respiratory Pattern Blood Pressure 132/51 L Blood Pressure [Left Arm] Blood Pressure Mean 78 Blood Pressure Mean [Left Arm] Blood Pressure Position Blood Pressure Position [Left Arm] Pulse Oximetry 100 Oxygen Delivery Method Nasal Cannula Oxygen Flow Rate 2 Sepsis Recent Fever Within 48 Hours Sepsis New/Unexplained Change in Mental Status Sepsis Action Taken by Nursing VITALS: Vitals are noted on the nurse's note and reviewed by myself. Vital signs stable. GENERAL: Chronically ill-appearing white female who appears mildly uncomfortable. She does not appear toxic. She is answering questions appropriately. HEAD: Normocephalic atraumatic. HEART: Regular rate and rhythm LUNGS: Clear to auscultation bilaterally without wheezes, rales or rhonchi. No retractions or accessory muscle use. ABDOMEN: Positive normal bowel sounds x 4. Soft with mild upper abdominal tenderness. MUSCULOSKELETAL: No muscle atrophy, erythema, or edema noted. Full range of motion in all extremities. Course Administered Medications Discontinued Medications Epinephrine HCl (Epinephrine 1.5" Ndl 0.1 Mg/Ml Syr) Confirm Administered Dose 2 mg IV .STK-MED ONE Stop: 04/24/21 12:45 Last Admin: 04/24/21 14:36 Dose: Not Given Documented by: [id number] Fentanyl Citrate (Fentanyl Citrate 100 Mcg/2 Ml Vial) 25 mcg IV Q5M PRN PRN Reason: PACU Use Only-Pain Stop: 04/24/21 20:48 Last Admin: 04/24/21 13:08 Dose: 25 mcg Documented by: [id number] Admin: 04/24/21 13:03 Dose: 25 mcg Documented by: [id number] Admin: 04/24/21 12:58 Dose: 25 mcg Documented by: [id number] Admin: 04/24/21 12:53 Dose: 25 mcg Documented by: [id number] Famotidine (Pepcid 20mg Iv Push) 20 mg in 5 mls @ 2.5 mls/min IV NOW STA Stop: 04/24/21 05:08 Last Admin: 04/24/21 05:15 Dose: 2.5 mls/min Documented by: [id number] Pantoprazole Sodium 40 mg/ (Dextrose) 100 mls @ 20 mls/hr IV Q5H PAULA Stop: 05/24/21 09:29 Last Admin: 04/24/21 20:36 Dose: 8 mg/hr, 20 mls/hr Documented by: [id number] Infusion: 04/24/21 20:19 Dose: 8 mg/hr, 20 mls/hr Documented by: [id number] Admin: 04/24/21 15:19 Dose: 8 mg/hr, 20 mls/hr Documented by: [id number] Infusion: 04/24/21 15:18 Dose: 0 mg/hr, 0 mls/hr Documented by: [id number] Admin: 04/24/21 10:12 Dose: 8 mg/hr, 20 mls/hr Documented by: [id number] Pantoprazole Sodium 80 mg/ (Dextrose) 120 mls @ 400 mls/hr IV NOW ONE Stop: 04/24/21 09:32 Last Infusion: 04/24/21 14:36 Dose: 0 mls/hr Documented by: [id number] Admin: 04/24/21 09:51 Dose: 400 mls/hr Documented by: [id number] Desmopressin Acetate 44 mcg/ (Sodium Chloride) 61 mls @ 100 mls/hr IV NOW STA Stop: 04/24/21 10:33 Last Infusion: 04/24/21 14:37 Dose: 0 mls/hr Documented by: [id number] Admin: 04/24/21 10:19 Dose: 100 mls/hr Documented by: [id number] Promethazine HCl 6.25 mg/ (Sodium Chloride) 50.25 mls @ 204 mls/hr IV ONCE PRN PRN Reason: PACU Use Only-Nausea/Vomiting Stop: 04/24/21 20:48 Last Infusion: 04/24/21 14:37 Dose: 0 mls/hr Documented by: [id number] Admin: 04/24/21 12:53 Dose: 204 mls/hr Documented by: [id number] Insulin Human Regular 250 (units/ Sodium Chloride) 250 mls @ 2.8 mls/hr IV .Q24H [facility]; Protocol Stop: 05/24/21 14:59 Last Admin: 04/24/21 15:42 Dose: Not Given Documented by: [id number] Cosigned by: [id number] Insulin Aspart (Insulin Aspart 100 Units/Ml 3 Ml Pen) 0 units SC Q4 PAULA; Protocol Stop: 05/24/21 18:14 Last Admin: 04/24/21 20:30 Dose: 6 units Documented by: [id number] Cosigned by: [id number] Insulin Glargine (Lantus Per Unit Charge) 15 units SQ NOW ONE; Protocol Stop: 04/24/21 18:16 Last Admin: 04/24/21 20:30 Dose: 15 units Documented by: [id number] Cosigned by: [id number] Insulin Human Regular (Insulin Human Regular) 10 units SC ACHS [facility] Stop: 04/24/21 11:31 Last Admin: 04/24/21 10:16 Dose: 10 units Documented by: [id number] Cosigned by: [id number] Insulin Human Regular (Novolin-R Insulin Per Unit Charge) Confirm Administered Dose 10 units .ROUTE .STK-MED ONE Stop: 04/24/21 10:11 Last Admin: 04/24/21 14:36 Dose: Not Given Documented by: [id number] Insulin Human Regular (Novolin-R Insulin Per Unit Charge) Confirm Administered Dose 10 units .ROUTE .STK-MED ONE Stop: 04/24/21 12:46 Last Admin: 04/24/21 12:48 Dose: 10 units Documented by: [id number] Cosigned by: [id number] Insulin Human Regular (Novolin-R Bolus From Bag) 3 units IV ONE ONE Stop: 04/24/21 15:01 Last Admin: 04/24/21 15:42 Dose: Not Given Documented by: [id number] Morphine Sulfate (Morphine Sulfate 4 Mg/Ml 1 Ml Carp\\Vial) 3 mg IV Q4H PRN PRN Reason: Pain Stop: 05/08/21 16:22 Last Admin: 04/24/21 16:29 Dose: 3 mg Documented by: [id number] Morphine Sulfate (Morphine Sulfate 4 Mg/Ml 1 Ml Carp\\Vial) Confirm Administered Dose 4 mg .ROUTE .STK-MED ONE Stop: 04/24/21 16:27 Last Admin: 04/24/21 16:29 Dose: Not Given Documented by: [id number] Ondansetron HCl (Ondansetron Inj 2 Mg/Ml 2 Ml Vial) 4 mg IV NOW STA Stop: 04/24/21 05:08 Last Admin: 04/24/21 05:15 Dose: 4 mg Documented by: [id number] Ondansetron HCl (Ondansetron Inj 2 Mg/Ml 2 Ml Vial) 4 mg IV NOW STA Stop: 04/24/21 07:29 Last Admin: 04/24/21 07:37 Dose: 4 mg Documented by: [id number] Medical Decision Making Differential Diagnosis Differential diagnosis: Etiologies such as gastroenteritis, food borne illness, infections, appendicitis, diverticulitis, inflammatory bowel disease, obstruction, GI bleed, biliary pathology, cardiac process, intracranial process, as well as others were entertained. Laboratory Data Result diagrams: 04/24/21 14:53 04/24/21 05:10 Lab Results 04/24/21 04/24/21 04/24/21 Range/Units 05:10 05:10 05:10 WBC 11.72 H (4.8-10.8) K/uL RBC 2.61 L (4.2-5.4) M/uL Hgb 8.2 L (12.0-16.0) g/dL Hct 25.6 L (37-47) % MCV 98.1 (80-100) fL MCH 31.4 (25-34) pg MCHC 32.0 (32-36) g/dL RDW Std Deviation 50.7 H (36.4-46.3) fL RDW Coeff of Leatha 14.8 H (11.5-14.5) % Plt Count 270 (130-400) K/uL MPV 9.1 (7.4-10.4) fL Immature Gran % (Auto) 0.3 % Neut % (Auto) 69.9 % Lymph % (Auto) 21.7 % [place] % (Auto) 6.1 % Eos % (Auto) 1.5 % Baso % (Auto) 0.5 % Neut # (Auto) 8.18 H (1.4-6.5) K/uL Lymph # (Auto) 2.54 (1.2-3.4) K/uL [place] # (Auto) 0.72 H (0.11-0.59) K/uL Eos # (Auto) 0.18 (0-0.5) K/uL Baso # (Auto) 0.06 (0-0.2) K/uL Immature Gran # (Auto) 0.04 H (0.00-0.02) K/uL PT 10.6 (9.0-12.0) Seconds INR 1.0 (0.9-1.1) APTT 27.7 (21.0-31.0) Seconds PTT Ratio 1.1 Sodium 136 (136-145) mmol/L Potassium 4.1 (3.5-5.1) mmol/L Chloride 97 L (98-107) mmol/L Carbon Dioxide 32 (21-32) mmol/L Anion Gap 6.0 (3-11) BUN 33 H (7-18) mg/dl Creatinine 3.17 H (0.6-1.2) mg/dl Est Cr Clr Drug Dosing 22.5 ml/min Est GFR ( Amer) 17.3 ml/min Est GFR (Non-Af Amer) 15.0 ml/min BUN/Creatinine Ratio 10.3 (10-20) Glucose 226 H (70-99) mg/dl Calcium 8.7 (8.5-10.1) mg/dl Magnesium 2.2 (1.8-2.4) mg/dl Total Bilirubin 0.4 (0.2-1) mg/dl AST 12 L (15-37) U/L ALT 16 (12-78) U/L Alkaline Phosphatase 103 (45-117) U/L Total Protein 6.5 (6.4-8.2) gm/dl Albumin 2.7 L (3.4-5.0) gm/dl Globulin 3.8 (2.5-4.0) gm/dl Albumin/Globulin Ratio 0.7 L (0.9-2) Lipase 178 (73-393) U/L COVID-19 Eval Order SARS-CoV-2 (PCR) (Negative) Blood Type Blood Type Recheck Antibody Screen Crossmatch 04/24/21 04/24/21 04/24/21 Range/Units 05:37 05:37 06:51 WBC (4.8-10.8) K/uL RBC (4.2-5.4) M/uL Hgb (12.0-16.0) g/dL Hct (37-47) % MCV (80-100) fL MCH (25-34) pg MCHC (32-36) g/dL RDW Std Deviation (36.4-46.3) fL RDW Coeff of Leatha (11.5-14.5) % Plt Count (130-400) K/uL MPV (7.4-10.4) fL Immature Gran % (Auto) % Neut % (Auto) % Lymph % (Auto) % [place] % (Auto) % Eos % (Auto) % Baso % (Auto) % Neut # (Auto) (1.4-6.5) K/uL Lymph # (Auto) (1.2-3.4) K/uL [place] # (Auto) (0.11-0.59) K/uL Eos # (Auto) (0-0.5) K/uL Baso # (Auto) (0-0.2) K/uL Immature Gran # (Auto) (0.00-0.02) K/uL PT (9.0-12.0) Seconds INR (0.9-1.1) APTT (21.0-31.0) Seconds PTT Ratio Sodium (136-145) mmol/L Potassium (3.5-5.1) mmol/L Chloride (98-107) mmol/L Carbon Dioxide (21-32) mmol/L Anion Gap (3-11) BUN (7-18) mg/dl Creatinine (0.6-1.2) mg/dl Est Cr Clr Drug Dosing ml/min Est GFR ( Amer) ml/min Est GFR (Non-Af Amer) ml/min BUN/Creatinine Ratio (10-20) Glucose (70-99) mg/dl Calcium (8.5-10.1) mg/dl Magnesium (1.8-2.4) mg/dl Total Bilirubin (0.2-1) mg/dl AST (15-37) U/L ALT (12-78) U/L Alkaline Phosphatase (45-117) U/L Total Protein (6.4-8.2) gm/dl Albumin (3.4-5.0) gm/dl Globulin (2.5-4.0) gm/dl Albumin/Globulin Ratio (0.9-2) Lipase (73-393) U/L COVID-19 Eval Order Covid19 at [facility] SARS-CoV-2 (PCR) NEGATIVE (Negative) Blood Type AB Positive Blood Type Recheck Antibody Screen NEGATIVE Crossmatch See Detail 04/24/21 Range/Units 08:11 WBC (4.8-10.8) K/uL RBC (4.2-5.4) M/uL Hgb (12.0-16.0) g/dL Hct (37-47) % MCV (80-100) fL MCH (25-34) pg MCHC (32-36) g/dL RDW Std Deviation (36.4-46.3) fL RDW Coeff of Leatha (11.5-14.5) % Plt Count (130-400) K/uL MPV (7.4-10.4) fL Immature Gran % (Auto) % Neut % (Auto) % Lymph % (Auto) % [place] % (Auto) % Eos % (Auto) % Baso % (Auto) % Neut # (Auto) (1.4-6.5) K/uL Lymph # (Auto) (1.2-3.4) K/uL [place] # (Auto) (0.11-0.59) K/uL Eos # (Auto) (0-0.5) K/uL Baso # (Auto) (0-0.2) K/uL Immature Gran # (Auto) (0.00-0.02) K/uL PT (9.0-12.0) Seconds INR (0.9-1.1) APTT (21.0-31.0) Seconds PTT Ratio Sodium (136-145) mmol/L Potassium (3.5-5.1) mmol/L Chloride (98-107) mmol/L Carbon Dioxide (21-32) mmol/L Anion Gap (3-11) BUN (7-18) mg/dl Creatinine (0.6-1.2) mg/dl Est Cr Clr Drug Dosing ml/min Est GFR ( Amer) ml/min Est GFR (Non-Af Amer) ml/min BUN/Creatinine Ratio (10-20) Glucose (70-99) mg/dl Calcium (8.5-10.1) mg/dl Magnesium (1.8-2.4) mg/dl Total Bilirubin (0.2-1) mg/dl AST (15-37) U/L ALT (12-78) U/L Alkaline Phosphatase (45-117) U/L Total Protein (6.4-8.2) gm/dl Albumin (3.4-5.0) gm/dl Globulin (2.5-4.0) gm/dl Albumin/Globulin Ratio (0.9-2) Lipase (73-393) U/L COVID-19 Eval Order SARS-CoV-2 (PCR) (Negative) Blood Type Blood Type Recheck AB Positive Antibody Screen Crossmatch Imaging Data Radiologist's Impression: Abdomen/Pelvis CT 04/24/21 05:[address] WITHOUT CONTRAST CT DOSE: 1758.11 mGy.cm HISTORY: Acute generalized abdominal pain with nausea and vomiting abd pain, n/v, on dialysis TECHNIQUE: Multiaxial CT images of the abdomen and pelvis were performed without contrast. A dose lowering technique was utilized adhering to the principles of ALARA. COMPARISON STUDY: CT abdomen and pelvis 10/31/2017 FINDINGS: Trace pericardial effusion. Partially imaged pacer leads. Clear lung bases. No pneumatosis or pneumoperitoneum. Limited evaluation of the solid abdominal organs without the use of IV contrast. The unenhanced spleen, moderately atrophic pancreas, adrenal glands and liver appear unremarkable. Cholecystectomy. Nonspecific bilateral perinephric stranding. There is a 3 mm calcification noted within the interpolar right kidney. Mild renal vascular calcifications. No ureteral calculi or hydronephrosis. Decompressed urinary bladder with mild wall thickening. Hysterectomy. No adnexal mass lesion. Atherosclerosis of the aorta without aneurysm. There is no adenopathy. Fluid-filled distal esophagus. Postoperative changes of Chente-en-Y gastric bypass. No bowel obstruction or bowel wall thickening. Colonic diverticulosis without acute diverticulitis. Mild to moderate fecal retention. Normal appendix. Ventral abdominal wall hernias are noted, the largest with diastases of 4.4 cm within the periumbilical distribution contains nonobstructed loops of small bowel with mesenteric fat. No acute fracture. Degenerative changes of the spine, pelvis and hips. Numerous Schmorl's nodes of the vertebral bodies. IMPRESSION: 1. No bowel obstruction or bowel wall thickening. Normal appendix. 2. Small ventral abdominal wall hernia contains mesenteric fat and nonobstructed loops of small bowel. 3. Colonic diverticulosis. 4. Nonobstructing right nephrolithiasis. 5. Additional findings as above. ACT 112: Negative or not required by law. The above report was generated using voice recognition software. It may contain grammatical, syntax or spelling errors. Electronically signed by: Lee Ghosh M.D. 04/24/2021 7:15 AM MDM Narrative Physical exam and history were performed. Nursing notes, EMR, and Medication List were personally reviewed. Patient appears to have hematemesis bringing her to the ER. The patient has had some red blood in her emesis while here in the ER. IV access was established and labs were obtained. She was given 2 doses of IV Zofran and a dose of IV Pepcid here in the ER. CT scan of the abdomen and pelvis was ordered. Type and screen were performed. An order was placed for continuous cardiac monitoring. The monitor shows a rate of 64 with normal sinus rhythm. Patient's blood work is as above and was reviewed. She has a slightly elevated white blood cell count of 11,000. She is anemic at 8.2, and reviewing her labs over the past few years she has been trending in the 8.4-9.0 range. BUN is 33 and creatinine is 3.17, and these are essentially better than her baseline as she did have dialysis yesterday. Transaminases are not diagnostic. CT scan was reviewed by myself and radiology showing no acute process. Covid swab is negative. The patient does not appear well for discharge home. The case was discussed with my attending. The patient does have stable vital signs at this time, but is with hematemesis of unknown source. There is concern as she is a gastric bypass patient, and may need endoscopy for further evaluation. The case was discussed with the [facility] team, who will evaluate the patient here in the ER. Please see their dictation for further patient course, plan, and disposition. The chart was completed utilizing [employer] Speech Voice Recognition Software. Grammatical errors, random word insertions, pronoun errors, and incomplete sentences are an occasional consequence of this system due to software limitations, ambient noise, and hardware issues. Any formal questions or concerns about the content, text, or information contained within the body of this dictation should be directly addressed to the provider for clarification. . Impression & Plan Upper GI bleed, Hematemesis with nausea Discharge Plan Visit Data Chief Complaint: GI Assessment Stated Complaint: VOMITING BLOOD ED Provider: Marsha Turcios ED Midlevel Provider: Ulises Vicente Discharge Problem: Upper GI bleed, Hematemesis with nausea Patient Disposition: Admitted As Inpatient Discharge Instructions Interventions: ED Discharge Assessment Last Done: 04/24/21 09:48
--- NOTE | 2021-04-24 08:26 | History & Physical Report ---
Date of Service April 24, 2021 Assessment & Plan (1) Upper GI bleed: Plan: -Admit to ICU -Patient presenting from home with reports of several episodes of hematemesis. During my exam, patient had one episode of grossly bloody hematemesis ~200 cc. -EGD 04/2020 - Normal esophagus. Chente-en-Y gastrojejunostomy with gastrojejunal anastomosis characterized by inflammation. Biopsied. Normal examined jejunum. -Colonoscopy 2017 - A 4 mm polyp was found in the ascending colon. Scattered small-mouthed diverticula were found in the sigmoid colon. -Chente-en-y gastric bypass 2017 -Hgb 8.2 -> 8.0 -Serial H&H, low threshold for transfusion -Hemodynamically stable -Urgent EGD today by GI (2) Anemia: Plan: -hgb 8.2 -> 8.0 (baseline ~ 8.5) -Acute blood loss anemia due to GI bleeding -Serial H&H, low threshold for transfusion (3) ESRD (end stage renal disease) on dialysis: Plan: -On dialysis MWF -Nephrology consulted for dialysis orders (4) Chronic diastolic CHF (congestive heart failure): Plan: -Volume managed with HD -Volume status acceptable (5) Pacemaker: (6) SSS (sick sinus syndrome): Plan: -No acute issues (7) Diabetes mellitus, type II: Plan: -Hgb A1c 7.4 01/2021 -Lantus/NovoLog while hospitalized (8) Hypothyroidism: Plan: -Continue levothyroxine (9) DVT prophylaxis: Plan: -SCDs due to active GI bleeding History of Present Illness Chief Complaint: Vomiting blood Primary Care Provider: Luis Fernando Rojas MD 60-year-old female with PMH DM type II, ESRD on hemodialysis MWF, hypothyroidism, chronic diastolic CHF, MINISTERIO on CPAP, SSS s/p pacemaker, HTN, and other problems listed below who presents to the ED for evaluation of hematemesis. Patient reports a few days ago, she was having early satiety and nausea after meals. Last evening after having a couple bites of her dinner, she started to have vomiting. She reports having 3-4 episodes before coming to the ED this morning. Emesis has been grossly bloody in nature. Reports epigastric abdominal pain. Had a bowel movement in the ED that she describes as black in color. During my exam, patient had one episode of about 200 cc grossly bloody hematemesis. She reports she has had about 8 other episodes similar to this. She reports feeling slightly dizzy. No syncopal events. She denies chest pain or shortness of breath. No other recent illnesses, fevers, chills. She denies urinary symptoms. Patient reports that she was to have surgery on her right upper arm today to remove a melanoma. In the ED, patient has remained hemodynamically stable. Hgb 8.2 -> 8.0. CT ABD/pelvis unremarkable for acute findings. Patient was given IV famotidine and IV Zofran x 2 doses. I have notified the GI and ICU teams. Allergies Allergy/AdvReac Type Severity Reaction Status Date / Time CHIDI Inhibitors AdvReac Mild COUGH Verified 04/24/21 07:54 Home Medications Medication Instructions Recorded Confirmed Type atorvastatin 40 mg tablet 40 mg PO HS 07/05/18 04/24/21 History citalopram 40 mg tablet 40 mg PO QAM 07/05/18 04/24/21 History insulin glargine 100 unit/mL 23 unit SUBCUT QAM 07/05/18 04/24/21 History subcutaneous solution (Lantus U-100 Insulin) insulin lispro 100 unit/mL 1 sliding scale dose SUBCUT UD 07/05/18 04/24/21 History subcutaneous cartridge (Humalog U-100 Insulin) levothyroxine 100 mcg tablet 100 mcg PO QAM 07/05/18 04/24/21 History (Synthroid) pantoprazole 40 mg tablet,delayed 40 mg PO QAM 07/05/18 04/24/21 History release melatonin 10 mg tablet 10 mg PO HS PRN 01/18/21 04/24/21 History hydralazine 50 mg tablet 100 mg PO TID 30 Days #180 tab 01/26/21 04/24/21 Rx acetaminophen 500 mg tablet 100 mg PO Q6H PRN 02/02/21 04/24/21 History (Tylenol Extra Strength) calcium citrate 315 mg 1 tab PO BID 02/02/21 04/24/21 History calcium-vitamin D3 6.25 mcg (250 unit) tablet (Citracal + Vitamin D Maximum) diphenhydramine HCl 25 mg tablet 25 mg PO TID PRN 02/02/21 04/24/21 History (Benadryl Allergy) lorazepam 0.5 mg tablet 0.5 mg PO BID PRN 02/02/21 04/24/21 History torsemide 100 mg tablet 100 mg PO QAM #30 tab 02/10/21 04/24/21 Rx amlodipine 5 mg tablet (Norvasc) 5 mg PO QAM 04/24/21 04/24/21 History aspirin 81 mg tablet 81 mg PO DAILY 04/24/21 04/24/21 History carvedilol 12.5 mg tablet (Coreg) 12.5 mg PO BID 04/24/21 04/24/21 History gabapentin 600 mg tablet 600 mg PO HS 04/24/21 04/24/21 History (Neurontin) nitroglycerin 0.4 mg sublingual 0.4 mg SUBLINGUAL Q5M PRN 04/24/21 04/24/21 History tablet (Nitrostat) sevelamer carbonate 800 mg tablet 1,600 mg PO TIDM 04/24/21 04/24/21 History (Renvela) vit B complx, C-iron 8 mg-folic 1 tab PO DAILY 04/24/21 04/24/21 History acid 800 mcg-D3 1,000 unit-zinc tablet (ProRenal) Past Med/Surg History Medical History Chronic diastolic CHF (congestive heart failure) CKD (chronic kidney disease), stage III Depression Diabetes mellitus, type II Difficult airway for intubation Endometrial carcinoma (02/23/13) "S/P hysterectomy " ESRD (end stage renal disease) on dialysis GERD (gastroesophageal reflux disease) History of melanoma HLD (hyperlipidemia) HTN (hypertension) Hypothyroidism MDD (major depressive disorder) MINISTERIO on CPAP Pacemaker SSS (sick sinus syndrome) Pt admitted for elective pacemaker due to SSS. She underwent procedure without any complications. Monitored over night and discharged home. Surgical History H/O esophagogastroduodenoscopy H/O hernia repair History of cholecystectomy Hx of cardiac cath "2012, negative for CAD " Hx of gastric bypass S/P knee surgery S/P [facility]-BSO Family History Other Colonic polyp GERD (gastroesophageal reflux disease) Social History Smoking Status: Never smoker Second Hand Exposure: No; Hx Alcohol Use: No Hx Substance Use: No Preferred Language: Czech Communication Ability: Effective Sand Digger Required: No Beliefs That Will Affect Care: None marital status: Current Living Situation: Spouse Current Living Situation Comment: LIVES WITH Feels Safe at Home: Yes Assistive Devices: Glasses Review of Systems Review of Systems: ROS per HPI, all other systems reviewed and negative Physical Exam Constitutional: + ill appearing and + obese; no acute distress Eyes: PERRL, conjunctivae normal, anicteric sclerae ENMT: external ear and nose normal, oropharynx normal Respiratory: normal respiratory effort, lungs clear to auscultation Cardiovascular: Rate/Rhythm: regular rate and regular rhythm Vessels: normal peripheral pulses Extremities: no edema Chest (Breasts): Chest: + vascular access device or port (Dialysis catheter in place to right chest) Gastrointestinal (Abdomen): Inspection/Auscultation: normal bowel sounds Percussion/Palpation: + abdomen tender (Epigastric) and abdomen soft; no guarding, abdomen not rigid and no hepatosplenomegaly Musculoskeletal: no cyanosis or clubbing, extremities motor strength 5/5 Skin: no rashes, warm and dry + pallor Neurologic: PERRL, EOMI, accommodation nl, no face palsy, no dysarthria Psychiatric: A+Ox3, euthymic affect Results & Data Results & Data ([facility]) Vital Signs (Past 12 Hours) Vital Signs Temp Pulse Pulse Resp BP BP Pulse Ox 04/24/21 07:29 75 23 132/51 L 100 04/24/21 06:02 77 20 124/47 L 97 04/24/21 04:59 65 20 138/48 L 95 04/24/21 04:22 37.0 C 64 18 139/67 99 Laboratory Results Short CBC 04/24/21 04/24/21 Range/Units 05:10 09:45 WBC 11.72 H (4.8-10.8) K/uL Hgb 8.2 L 8.0 L (12.0-16.0) g/dL Hct 25.6 L 24.9 L (37-47) % Plt Count 270 (130-400) K/uL BMP 04/24/21 05:10 Sodium 136 Potassium 4.1 Chloride 97 L Carbon Dioxide 32 BUN 33 H Creatinine 3.17 H Glucose 226 H Calcium 8.7 Liver Function 04/24/21 Range/Units 05:10 Total Bilirubin 0.4 (0.2-1) mg/dl AST 12 L (15-37) U/L ALT 16 (12-78) U/L Alkaline Phosphatase 103 (45-117) U/L Albumin 2.7 L (3.4-5.0) gm/dl Diagnostic Findings Abdomen/Pelvis CT 04/24/21 05:[address] WITHOUT CONTRAST CT DOSE: 1758.11 mGy.cm HISTORY: Acute generalized abdominal pain with nausea and vomiting abd pain, n/v, on dialysis TECHNIQUE: Multiaxial CT images of the abdomen and pelvis were performed without contrast. A dose lowering technique was utilized adhering to the principles of ALARA. COMPARISON STUDY: CT abdomen and pelvis 10/31/2017 FINDINGS: Trace pericardial effusion. Partially imaged pacer leads. Clear lung bases. No pneumatosis or pneumoperitoneum. Limited evaluation of the solid abdominal organs without the use of IV contrast. The unenhanced spleen, moderately atrophic pancreas, adrenal glands and liver appear unremarkable. Cholecystectomy. Nonspecific bilateral perinephric stranding. There is a 3 mm calcification noted within the interpolar right kidney. Mild renal vascular calcifications. No ureteral calculi or hydronephrosis. Decompressed urinary bladder with mild wall thickening. Hysterectomy. No adnexal mass lesion. Atherosclerosis of the aorta without aneurysm. There is no adenopathy. Fluid-filled distal esophagus. Postoperative changes of Chente-en-Y gastric bypass. No bowel obstruction or bowel wall thickening. Colonic diverticulosis without acute diverticulitis. Mild to moderate fecal retention. Normal appendix. Ventral abdominal wall hernias are noted, the largest with diastases of 4.4 cm within the periumbilical distribution contains nonobstructed loops of small bowel with mesenteric fat. No acute fracture. Degenerative changes of the spine, pelvis and hips. Numerous Schmorl's nodes of the vertebral bodies. IMPRESSION: 1. No bowel obstruction or bowel wall thickening. Normal appendix. 2. Small ventral abdominal wall hernia contains mesenteric fat and nonobstructed loops of small bowel. 3. Colonic diverticulosis. 4. Nonobstructing right nephrolithiasis. 5. Additional findings as above. ACT 112: Negative or not required by law. The above report was generated using voice recognition software. It may contain grammatical, syntax or spelling errors. Electronically signed by: Lee Ghosh M.D. 04/24/2021 7:15 AM Code Status & VTE Plan VTE Prophylaxis Plan VTE Prophylaxis will be ordered: Yes Supervising Physician Co-Signing Physician Notes Patient is a 60-year-old F with history of type 2 diabetes, gastric bypass (R oux-en-Y gastrojejunostomy), hypothyroidism, MINISTERIO on CPAP, sick sinus syndrome status post pacemaker, hypertension, ESRD on dialysis M.W,F, depression admitted for GI bleed PE: NAD, bloody vomit on the sheet Heart: Normal S1/S2, no murmur Lungs: CTA Abd: obese abd, mild TTP of the epigastric area, normal BS LE: No edema Plan: Upper GI bleed: -due to gross emesis will admit the pt to ICU -trend H/H -pt is sched to get EGD today -GI and ICU consulted - transfuse if hgb<7 or hypotension ESRD on HD: -nephro consult Agree with A/P by Joanne SINGER
[2021-04-24] MEDS ORDERED: PANTOPRAZOLE BOLUS/DRIP 1 EA IV STA (09:02)
--- NOTE | 2021-04-24 09:13 | Critical Care Consultation ---
Date of Consultation April 24, 2021 Assessment & Plan (1) Upper GI bleed: Reason Critically Ill: 60 year old female w/ PMH of HTN, DM2, ESRD on MWF HD, hypothyroidism, CHF?, and pacemaker who presents for UGIB. Per EGD she has Chente-en-Y w/ large obstructing clot that will require transfer to [facility] for specialized care (IR and MIS surgery capabilities). She is monitored by ICU for high risk of acute decompensation. Her vitals are currently stable. Neuro - [facility] ICU: neg anxiety/depression: home regimen held while NPO Cardiac - HTN: hold regimen held while NPO. SSS s/p pacemaker. Monitor via telemetry. No ecg in system. Will obtain ecg if not yet obtained. diastolic CHF recent echo w/ grade 1 diastolic dysfunction. patient does have torsemide 100mg PO qam on meds list. monitor clinically Respiratory - Supp O2 as needed. MINISTERIO. CPAP qhs. Will defer to transfer facility. GI - NPO. Hold home PO meds. Upper GI bleed, secondary to large obstructing clot at Chente-En-Y Per EGD endoscopy report, GI was unable to advance scope into jejunum and was unable to remove the clot. CT abd showed Chente-En-Y, but did not show the above finding. IV protonix. Plans for transfer to [facility]. She is s/p ddavp per GI. Will type and screen and obtain good peripheral access. RENAL/LYTES - hemodialysis MWF Last session was yesterday. No significant electrolyte derangement. Replace lytes w/ caution as needed. - [facility]. Strict Is/Os ENDO - DM2, glycemic consult. SSI. Hypothyroidism: home Synthroid when not NPO; follow protocol per transfer facility HEME - Stable H&H. Will recheck. Hold chemoppx in setting of bleed. ID - Low suspicion for infection at this point. No esophageal varices as such not administering prophylatic GI abx covid neg. LINES/IV ACCESS - PIVs intact. R upper chest wall dialysis site. DVT PROPHYLAXIS - SCDs only code: full dispo: ICU, awaiting transfer to [facility] (2) Anemia: (3) Anxiety: (4) Pacemaker: (5) Chronic diastolic CHF (congestive heart failure): (6) DVT prophylaxis: (7) Hypothyroidism: (8) SSS (sick sinus syndrome): (9) Diabetes mellitus, type II: (10) Endometrial carcinoma: (11) ESRD (end stage renal disease) on dialysis: Supervising Physician Co-Signing Physician Notes Dr. Schilling was resident physician during care of patient. I separately evaluated patient for escalera portions of the history and the exam. I was present during the critical portion of medical decision making, and I discussed the case with the resident. I generally agree with the findings and plan. Patient seen status post EGD. On maximum therapy at this point anticipate transfer to tertiary care where IR would be available to perform embolectomy. Close ICU observation at this time. Patient critically ill I have personally spent 35 minutes of critical care time in the direct managem ent of this patient. This is a life/limb threatening event. This includes time spent evaluating patient, direct bedside care, chart review, placing orders, interpretation of diagnostic studies, discussion with consultants, patient, and/or family members regarding treatment decisions, as well as other required patient management activities. This time is exclusive of all separately billable procedures, and teaching time and separate from and in addition to any other critical care service time. History of Present Illness Reason for Consultation: UGIB Attending Physician: Álvaro Red MD History of Present Illness Maisha Irvin is a 60 year old female w/ PMH of Chente-en-Y, HTN, DM2, ESRD on MWF HD, hypothyroidism, endometrial cancer s/p hysterectomy, diastolic CHF, and pacemaker who presents w/ multiple episodes of hematemesis since early this morning. She had an episode of nonbloody emesis last night. She denies hx of similar symptoms. She started having black-colored stools while in the ED. + mild epigastric discomfort. Patient's last dialysis session was yesterday. She takes a baby ASA daily, and is not on blood thinners. She has intermittent chills and sweats. No current emesis at time of interview. She was starting to feel slightly near-syncopal type dizzy at the time of the interview ~9AM while in ED, just prior to going to EGD. ED course: Protonix bolus and drip started. S/p famotidine. GI following. Fluid bolus planned. Vitals were stable at time of interview. Hb 8.2 w/ baseline ~9s per chart review. Allergies Allergy/AdvReac Type Severity Reaction Status Date / Time CHIDI Inhibitors AdvReac Mild COUGH Verified 04/24/21 07:54 Home Medications Medication Instructions Recorded Confirmed Type atorvastatin 40 mg tablet 40 mg PO HS 07/05/18 04/24/21 History citalopram 40 mg tablet 40 mg PO QAM 07/05/18 04/24/21 History insulin glargine 100 unit/mL 23 unit SUBCUT QAM 07/05/18 04/24/21 History subcutaneous solution (Lantus U-100 Insulin) insulin lispro 100 unit/mL 1 sliding scale dose SUBCUT UD 07/05/18 04/24/21 History subcutaneous cartridge (Humalog U-100 Insulin) levothyroxine 100 mcg tablet 100 mcg PO QAM 07/05/18 04/24/21 History (Synthroid) pantoprazole 40 mg tablet,delayed 40 mg PO QAM 07/05/18 04/24/21 History release melatonin 10 mg tablet 10 mg PO HS PRN 01/18/21 04/24/21 History hydralazine 50 mg tablet 100 mg PO TID 30 Days #180 tab 01/26/21 04/24/21 Rx acetaminophen 500 mg tablet 100 mg PO Q6H PRN 02/02/21 04/24/21 History (Tylenol Extra Strength) calcium citrate 315 mg 1 tab PO BID 02/02/21 04/24/21 History calcium-vitamin D3 6.25 mcg (250 unit) tablet (Citracal + Vitamin D Maximum) diphenhydramine HCl 25 mg tablet 25 mg PO TID PRN 02/02/21 04/24/21 History (Benadryl Allergy) lorazepam 0.5 mg tablet 0.5 mg PO BID PRN 02/02/21 04/24/21 History torsemide 100 mg tablet 100 mg PO QAM #30 tab 02/10/21 04/24/21 Rx amlodipine 5 mg tablet (Norvasc) 5 mg PO QAM 04/24/21 04/24/21 History aspirin 81 mg tablet 81 mg PO DAILY 04/24/21 04/24/21 History carvedilol 12.5 mg tablet (Coreg) 12.5 mg PO BID 04/24/21 04/24/21 History gabapentin 600 mg tablet 600 mg PO HS 04/24/21 04/24/21 History (Neurontin) nitroglycerin 0.4 mg sublingual 0.4 mg SUBLINGUAL Q5M PRN 04/24/21 04/24/21 History tablet (Nitrostat) sevelamer carbonate 800 mg tablet 1,600 mg PO TIDM 04/24/21 04/24/21 History (Renvela) vit B complx, C-iron 8 mg-folic 1 tab PO DAILY 04/24/21 04/24/21 History acid 800 mcg-D3 1,000 unit-zinc tablet (ProRenal) Patient History Medical History Chronic diastolic CHF (congestive heart failure) CKD (chronic kidney disease), stage III Depression Diabetes mellitus, type II Difficult airway for intubation Endometrial carcinoma (02/23/13) "S/P hysterectomy " ESRD (end stage renal disease) on dialysis GERD (gastroesophageal reflux disease) History of melanoma HLD (hyperlipidemia) HTN (hypertension) Hypothyroidism MDD (major depressive disorder) MINISTERIO on CPAP Pacemaker SSS (sick sinus syndrome) Pt admitted for elective pacemaker due to SSS. She underwent procedure without any complications. Monitored over night and discharged home. Surgical History H/O esophagogastroduodenoscopy H/O hernia repair History of cholecystectomy Hx of cardiac cath "2012, negative for CAD " Hx of gastric bypass S/P knee surgery S/P JERSEY-BSO Family History Other Colonic polyp GERD (gastroesophageal reflux disease) Social History Smoking Status: Never smoker Second Hand Exposure: No; Do You Dip or Chew Tobacco: No; Tobacco Cessation Education Requested by Patient: No Hx Alcohol Use: Yes (occasional) Alcohol type: wine Hx Substance Use: No Preferred Language: Mongolian Communication Ability: Effective Intern Brand Required: No Beliefs That Will Affect Care: None marital status: Current Living Situation: Spouse Current Living Situation Comment: LIVES WITH Feels Safe at Home: Yes Safety Concerns: Feels Safe At This Time Assistive Devices: CPAP Review of Systems Review of Systems: All systems reviewed & are unremarkable except as noted in HPI & below Constitutional: Denies fever Eyes: Denies blurry vision, vision changes ENT: Denies sore throat Cardiovascular: Denies chest pain, palpitations Respiratory: Denies shortness of breath Gastrointestinal: Denies abdominal pain, nausea, constipation, diarrhea. See HPI Genitourinary: Denies urinary symptoms including dysuria Musculoskeletal: Denies weakness, muscle aches/pain, joint aches/pain Neurological: Denies headache, numbness, tingling, focal weakness Physical Exam Physical Exam: General: Grossly A&O. NAD. Cooperative. HEENT: Atraumatic, normocephalic. EOMI. PERRL. Pulm: CTAB. -wheezes, -rales, -rhonchi. No respiratory distress. Cardiac: RRR, -mrg. Radial pulses intact and symmetrical. Trace LE edema. Abdominal: Mild epigastric TTP. Nondistended, soft. Integ: PIVs intact. Mild soiling/blood stain of right upper chest wall dialysis catheter site. There is small amount of dried bright red blood stains on her hosp gown. Results & Data Results & Data ([facility]) Vital Signs (Past 12 Hours) Vital Signs Temp Pulse Pulse Resp BP BP Pulse Ox 04/24/21 09:00 80 26 H 133/79 98 04/24/21 08:30 72 21 145/60 H 99 04/24/21 07:29 75 23 132/51 L 100 04/24/21 06:02 77 20 124/47 L 97 04/24/21 04:59 65 20 138/48 L 95 04/24/21 04:22 37.0 C 64 18 139/67 99 Laboratory Results Mild leukocytosis 11.71. Hb 8.2->8.0. Will type and screen. 2 large bore IVs. s/p ddavp IV 44mcg per GI. lipase wnl. cmp wnl. Cr 3.17, improved than revious hospitalizations. electrolytes acceptable. Coags appropriate at admission. 02/03/21 echo normal EF 60-65%. Mild concentric LVH. Moderate mitral annular calcification. mild pulm HTN. Grade I diastolic dysfunction. No new ecg or micro this admission. Cardiac Enzymes 04/24/21 Range/Units 05:10 AST 12 L (15-37) U/L Coagulation 04/24/21 Range/Units 05:10 PT 10.6 (9.0-12.0) Seconds APTT 27.7 (21.0-31.0) Seconds CBC 04/24/21 04/24/21 Range/Units 05:10 09:45 WBC 11.72 H (4.8-10.8) K/uL RBC 2.61 L (4.2-5.4) M/uL Hgb 8.2 L 8.0 L (12.0-16.0) g/dL Hct 25.6 L 24.9 L (37-47) % Plt Count 270 (130-400) K/uL Neut # (Auto) 8.18 H (1.4-6.5) K/uL Lymph # (Auto) 2.54 (1.2-3.4) K/uL [place] # (Auto) 0.72 H (0.11-0.59) K/uL Eos # (Auto) 0.18 (0-0.5) K/uL Baso # (Auto) 0.06 (0-0.2) K/uL Comprehensive Metabolic Panel 04/24/21 Range/Units 05:10 Sodium 136 (136-145) mmol/L Potassium 4.1 (3.5-5.1) mmol/L Chloride 97 L (98-107) mmol/L Carbon Dioxide 32 (21-32) mmol/L BUN 33 H (7-18) mg/dl Creatinine 3.17 H (0.6-1.2) mg/dl Glucose 226 H (70-99) mg/dl Calcium 8.7 (8.5-10.1) mg/dl AST 12 L (15-37) U/L ALT 16 (12-78) U/L Alkaline Phosphatase 103 (45-117) U/L Total Protein 6.5 (6.4-8.2) gm/dl Albumin 2.7 L (3.4-5.0) gm/dl Intake and Output 04/23/21 04/24/21 04/24/21 22:59 06:59 14:59 Other: Weight 111.4 kg 111.4 kg Weight Measurement Method Built in [facility] Patient Weight 04/25/21 06:59 Weight 111.4 kg Diagnostic Findings 04/24/21 EGD impression: Normal esopagus. Chente-en-Y gastrojejunostomy with gastrojejunal anastomosis characterized by large obstruction clot that extended from the GJ anasomosis to the GE junction. Injected. No specimens collected. Please see full EGD report. Abdomen/Pelvis CT 04/24/21 05:[address] WITHOUT CONTRAST CT DOSE: 1758.11 mGy.cm HISTORY: Acute generalized abdominal pain with nausea and vomiting abd pain, n/v, on dialysis TECHNIQUE: Multiaxial CT images of the abdomen and pelvis were performed without contrast. A dose lowering technique was utilized adhering to the principles of ALARA. COMPARISON STUDY: CT abdomen and pelvis 10/31/2017 FINDINGS: Trace pericardial effusion. Partially imaged pacer leads. Clear lung bases. No pneumatosis or pneumoperitoneum. Limited evaluation of the solid abdominal organs without the use of IV contrast. The unenhanced spleen, moderately atrophic pancreas, adrenal glands and liver appear unremarkable. Cholecystectomy. Nonspecific bilateral perinephric stranding. There is a 3 mm calcification noted within the interpolar right kidney. Mild renal vascular calcifications. No ureteral calculi or hydronephrosis. Decompressed urinary bladder with mild wall thickening. Hysterectomy. No adnexal mass lesion. Atherosclerosis of the aorta without aneurysm. There is no adenopathy. Fluid-filled distal esophagus. Postoperative changes of Chente-en-Y gastric bypass. No bowel obstruction or bowel wall thickening. Colonic diverticulosis without acute diverticulitis. Mild to moderate fecal retention. Normal appendix. Ventral abdominal wall hernias are noted, the largest with diastases of 4.4 cm within the periumbilical distribution contains nonobstructed loops of small bowel with mesenteric fat. No acute fracture. Degenerative changes of the spine, pelvis and hips. Numerous Schmorl's nodes of the vertebral bodies. IMPRESSION: 1. No bowel obstruction or bowel wall thickening. Normal appendix. 2. Small ventral abdominal wall hernia contains mesenteric fat and nonobstructed loops of small bowel. 3. Colonic diverticulosis. 4. Nonobstructing right nephrolithiasis. 5. Additional findings as above. ACT 112: Negative or not required by law. The above report was generated using voice recognition software. It may contain grammatical, syntax or spelling errors. Electronically signed by: Lee Ghosh M.D. 04/24/2021 7:15 AM Resident Activity Tracking Resident Involvement: Resident Care Provided Care Provided: [facility] Medicine
[2021-04-24] MEDS ORDERED: PANTOprazole 80 MG in DEXTROSE 5% 100 ML IV ONE (09:15)
[2021-04-24] MEDS ORDERED: ICU PROTOCOL FOR HYPERGLYCEMIA PRN ×2 (09:47→14:18)
[2021-04-24 09:54] LABS: Hematocrit (blood only) 24.9 % (37-47)
[2021-04-24] MEDS ORDERED: DESMOPRESSIN ACETATE 44 MCG in SODIUM CHLORIDE 0.9% 50 ML IV STA (09:57)
[2021-04-24] MEDS ORDERED: PHARMACY GLYCEMIC MGMT CONSULT PRN (10:05)
[2021-04-24] MEDS ORDERED: NovoLIN-R INSULIN PER UNIT CHARGE ONE ×2 (10:10→12:45)
[2021-04-24] MEDS: PANTOprazole 40 MG in DEXTROSE 5% 100 ML IV SCH ×3 (10:12→20:36)
[2021-04-24] MEDS ORDERED: MIDAZOLAM HCL 1 MG/ML 2ML VIAL ONE (10:13)
[2021-04-24] MEDS ORDERED: fentaNYL citrate 100 MCG/2 ML VIAL ONE ×2 (10:13→12:51)
--- NOTE | 2021-04-24 10:22 | Anesthesiology Consultation ---
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 History Surgery Operation Date: 04/24/21 09:35 Proposed Procedures p Esophagogastroduodenoscopy - Adin Borja MD Height/Weight Height: 5 ft 4 in Weight: 111.4 kg Allergies Allergy/AdvReac Type Severity Reaction Status Date / Time CHIDI Inhibitors AdvReac Mild COUGH Verified 04/24/21 07:54 Medications Home Medications Medication Instructions Recorded Confirmed Last Taken atorvastatin 40 mg tablet 40 mg PO HS 07/05/18 04/24/21 04/23/21 citalopram 40 mg tablet 40 mg PO QAM 07/05/18 04/24/21 04/23/21 insulin glargine 100 unit/mL 23 unit SUBCUT QAM 07/05/18 04/24/21 04/23/21 subcutaneous solution (Lantus U-100 Insulin) insulin lispro 100 unit/mL 1 sliding scale dose SUBCUT 07/05/18 04/24/21 02/02/21 subcutaneous cartridge (Humalog 0 units U-100 Insulin) levothyroxine 100 mcg tablet 100 mcg PO QAM 07/05/18 04/24/21 04/23/21 (Synthroid) pantoprazole 40 mg tablet,delayed 40 mg PO QAM 07/05/18 04/24/21 04/23/21 release melatonin 10 mg tablet 10 mg PO HS PRN 01/18/21 04/24/21 04/23/21 hydralazine 50 mg tablet 100 mg PO TID 30 Days #180 tab 01/26/21 04/24/21 04/23/21 acetaminophen 500 mg tablet 100 mg PO Q6H PRN 02/02/21 04/24/21 02/01/21 23:00 (Tylenol Extra Strength) 1000 mg calcium citrate 315 mg 1 tab PO BID 02/02/21 04/24/21 04/23/21 calcium-vitamin D3 6.25 mcg (250 unit) tablet (Citracal + Vitamin D Maximum) diphenhydramine HCl 25 mg tablet 25 mg PO TID PRN 02/02/21 04/24/21 02/02/21 (Benadryl Allergy) 25 mg lorazepam 0.5 mg tablet 0.5 mg PO BID PRN 02/02/21 04/24/21 Unknown torsemide 100 mg tablet 100 mg PO QAM #30 tab 02/10/21 04/24/21 04/23/21 amlodipine 5 mg tablet (Norvasc) 5 mg PO QAM 04/24/21 04/24/21 04/23/21 aspirin 81 mg tablet 81 mg PO DAILY 04/24/21 04/24/21 Unknown carvedilol 12.5 mg tablet (Coreg) 12.5 mg PO BID 04/24/21 04/24/21 04/23/21 gabapentin 600 mg tablet 600 mg PO HS 04/24/21 04/24/21 04/23/21 (Neurontin) nitroglycerin 0.4 mg sublingual 0.4 mg SUBLINGUAL Q5M PRN 04/24/21 04/24/21 Unknown tablet (Nitrostat) sevelamer carbonate 800 mg tablet 1,600 mg PO TIDM 04/24/21 04/24/21 04/23/21 (Renvela) vit B complx, C-iron 8 mg-folic 1 tab PO DAILY 04/24/21 04/24/21 Unknown acid 800 mcg-D3 1,000 unit-zinc tablet (ProRenal) Active Medications Generic Name Dose Route Start Last Admin Trade Name Freq PRN Reason Stop Dose Admin Pantoprazole Sodium 40 mg/ 100 mls @ 20 mls/hr 04/24/21 09:30 04/24/21 10:12 Dextrose IV 05/24/21 09:29 8 mg/hr Q5H PAULA 20 mls/hr Administration 8 MG/HR Insulin Human Regular 10 units 04/24/21 11:30 04/24/21 10:16 Insulin Human Regular SC 05/24/21 11:29 10 units ACHS PAULA Administration NPO Date Last Intake of Fluids: 04/23/21 Time Last Intake of Fluids: 19:00 Date Last Intake of Solids: 04/23/21 Time Last Intake of Solids: 19:00 Past Medical History Medical History Chronic diastolic CHF (congestive heart failure) CKD (chronic kidney disease), stage III Depression Diabetes mellitus, type II Difficult airway for intubation Endometrial carcinoma (02/23/13) "S/P hysterectomy " ESRD (end stage renal disease) on dialysis GERD (gastroesophageal reflux disease) History of melanoma HLD (hyperlipidemia) HTN (hypertension) Hypothyroidism MDD (major depressive disorder) MINISTERIO on CPAP Pacemaker SSS (sick sinus syndrome) Pt admitted for elective pacemaker due to SSS. She underwent procedure without any complications. Monitored over night and discharged home. Past Family History Family History Other Colonic polyp GERD (gastroesophageal reflux disease) Past Surgical History Surgical History H/O esophagogastroduodenoscopy H/O hernia repair History of cholecystectomy Hx of cardiac cath "2012, negative for CAD " Hx of gastric bypass S/P knee surgery S/P [place]-BSO Social History Smoking Status: Never smoker tobacco type: cigarettes Hx Alcohol Use: No Alcohol type: wine alcohol intake frequency: holidays/special occasions only Hx Substance Use: No substance use type: does not use Physical Exam Vital Signs Last Vital Signs Temp 99.3 F 04/24/21 09:55 Pulse 77 04/24/21 09:55 Resp 18 04/24/21 09:55 BP 141/62 H 04/24/21 09:55 Pulse Ox 100 04/24/21 09:55 Testing Laboratory Results 04/24/21 09:45 04/24/21 05:10 PT 10.6 Seconds (9.0-12.0) 04/24/21 05:10 INR 1.0 (0.9-1.1) 04/24/21 05:10 APTT 27.7 Seconds (21.0-31.0) 04/24/21 05:10 Blood Type AB Positive 04/24/21 06:51 Antibody Screen NEGATIVE 04/24/21 06:51 04/24/21 04/24/21 09:56 09:54 POC Glucose 319 H* 317 H* Electrocardiogram Date: 02/02/21 Sinus rhythm with 1st degree A-V block, rate 72 bpm Poor R wave progression, consider anterior IN vs. lead placement vs. LVH Abnormal ECG When compared with ECG of 25-JAN-2021 18:39, Sinus rhythm has replaced Electronic atrial pacemaker Confirmed by Syd Villagran ([id number]) on 02/03/2021 10:18:09 AM Chest X-Ray Date: 02/02/21 IMPRESSION: Cardiomegaly with mild interstitial pulmonary edema. This has developed in the interval. Echocardiogram Date: 02/03/21 There is mild concentric LVH The LV wall motion is normal LV EF 60-65% There is moderate mitral annular calcification Significant mitral regurgitation is absent There is no mitral valve stenosis Mild pulmonary hypertension is present PA systolic pressure is estimated to be 40 mm Hg Grade 1 diastolic dysfunction
--- NOTE | 2021-04-24 10:31 | Gastrointestinal Consultation ---
Date of Consultation April 24, 2021 Assessment & Plan (1) Upper GI bleed: PPI Drip DDAVP NPO Close monitoring of HR, BP, outputs (emesis, BMs, urine volumes). Will plan for urgent EGD in the OR today with Dr. Borja. Further recommendations to follow EGD. Supervising Physician Co-Signing Physician Notes Attending attestation I have seen, examined this patient, and agree with the findings and above by our mid-level provider LUCRECIA Blanton, with the following additions: - Epigastric distress and hematemesis - Vital signs stable - Hb stable - will give DDAVP - IV PPI - Plan for EGD today History of Present Illness Reason for Consultation: Hematemesis Requesting Physician: Joanne Morales NP Attending Physician: Álvaro Red MD History of Present Illness Ms. Candi Finley is a 60 yr old female pt of Dr. Rojas with a hx of ESRD on dialysis, CHF, Sick sinus Syndrome with a pacemaker, MINISTERIO, DM-2, HTN, Endometrial Carcinoma S/P hysterectomy. She is S/P RYGB for obesity 3 yrs ago. She presented to the ED for hematemesis this morning. She had some post prandial fullness and mild epigastric discomfort beginning about 4 days ago. Last evening she vomited once (no blood), then was able to sleep but was awakened at 4AM with pain, nausea and vomited blood. She has now vomited bright red blood a total of 10 times, most recently in the ED around 9AM. Approx 400cc total hematemesis in the ED. She passes one formed, black BM this morning but did not have any melena prior. She continues with epigastric discomfort. She had some chills/sweats since arrival but no measured fevers and no other signs of illness at home other than as mentioned above. She denies any NSAID use and is not on an anticoagulant. On arrival in the ED, Hb is 8.2 (baseline approx 10), BUN 33, Cr 3.1. BS around 300. She is awake, alert, oriented and hemodynamically stable with HR in the 90's, BP 140 - 150/ 60 - 70.She is saturating at 100% with O2 by NC at 2L/min. Stat recheck Hb at 10AM was 8.0. Most recent EGD in February [address] Borja, normal post RYGB. Most recent colonoscopy i 2018 with diverticulosis and a 4mm polyp. Allergies Allergy/AdvReac Type Severity Reaction Status Date / Time CHIDI Inhibitors AdvReac Mild COUGH Verified 04/24/21 07:54 Home Medications Medication Instructions Recorded Confirmed Type atorvastatin 40 mg tablet 40 mg PO HS 07/05/18 04/24/21 History citalopram 40 mg tablet 40 mg PO QAM 07/05/18 04/24/21 History insulin glargine 100 unit/mL 23 unit SUBCUT QAM 07/05/18 04/24/21 History subcutaneous solution (Lantus U-100 Insulin) insulin lispro 100 unit/mL 1 sliding scale dose SUBCUT UD 07/05/18 04/24/21 History subcutaneous cartridge (Humalog U-100 Insulin) levothyroxine 100 mcg tablet 100 mcg PO QAM 07/05/18 04/24/21 History (Synthroid) pantoprazole 40 mg tablet,delayed 40 mg PO QAM 07/05/18 04/24/21 History release melatonin 10 mg tablet 10 mg PO HS PRN 01/18/21 04/24/21 History hydralazine 50 mg tablet 100 mg PO TID 30 Days #180 tab 01/26/21 04/24/21 Rx acetaminophen 500 mg tablet 100 mg PO Q6H PRN 02/02/21 04/24/21 History (Tylenol Extra Strength) calcium citrate 315 mg 1 tab PO BID 02/02/21 04/24/21 History calcium-vitamin D3 6.25 mcg (250 unit) tablet (Citracal + Vitamin D Maximum) diphenhydramine HCl 25 mg tablet 25 mg PO TID PRN 02/02/21 04/24/21 History (Benadryl Allergy) lorazepam 0.5 mg tablet 0.5 mg PO BID PRN 02/02/21 04/24/21 History torsemide 100 mg tablet 100 mg PO QAM #30 tab 02/10/21 04/24/21 Rx amlodipine 5 mg tablet (Norvasc) 5 mg PO QAM 04/24/21 04/24/21 History aspirin 81 mg tablet 81 mg PO DAILY 04/24/21 04/24/21 History carvedilol 12.5 mg tablet (Coreg) 12.5 mg PO BID 04/24/21 04/24/21 History gabapentin 600 mg tablet 600 mg PO HS 04/24/21 04/24/21 History (Neurontin) nitroglycerin 0.4 mg sublingual 0.4 mg SUBLINGUAL Q5M PRN 04/24/21 04/24/21 History tablet (Nitrostat) sevelamer carbonate 800 mg tablet 1,600 mg PO TIDM 04/24/21 04/24/21 History (Renvela) vit B complx, C-iron 8 mg-folic 1 tab PO DAILY 04/24/21 04/24/21 History acid 800 mcg-D3 1,000 unit-zinc tablet (ProRenal) Patient History Medical History Chronic diastolic CHF (congestive heart failure) CKD (chronic kidney disease), stage III Depression Diabetes mellitus, type II Difficult airway for intubation Endometrial carcinoma (02/23/13) "S/P hysterectomy " ESRD (end stage renal disease) on dialysis GERD (gastroesophageal reflux disease) History of melanoma HLD (hyperlipidemia) HTN (hypertension) Hypothyroidism MDD (major depressive disorder) MINISTERIO on CPAP Pacemaker SSS (sick sinus syndrome) Pt admitted for elective pacemaker due to SSS. She underwent procedure without any complications. Monitored over night and discharged home. Surgical History H/O esophagogastroduodenoscopy H/O hernia repair History of cholecystectomy Hx of cardiac cath "2012, negative for CAD " Hx of gastric bypass S/P knee surgery S/P JERESY-BSO Family History Other Colonic polyp GERD (gastroesophageal reflux disease) Social History Smoking Status: Never smoker Second Hand Exposure: No; Hx Alcohol Use: No Hx Substance Use: No Preferred Language: Tajik Communication Ability: Effective Air Brake Man Required: No Beliefs That Will Affect Care: None marital status: Current Living Situation: Spouse Current Living Situation Comment: LIVES WITH Feels Safe at Home: Yes Assistive Devices: Glasses Review of Systems Review of Systems: ROS: Gen: Denies weakness, fevers, weight loss Eyes: No eye redness, or pain, no recent vision changes Resp: No SOB, no cough Cardio: No palpitations/irregular beats, no chest pain GI: as per HPI, otherwise (-) : Denies pain on urination Skin: No jaundice, itching or new rashes A total of 12 systems were reviewed, all others (-). Physical Exam Constitutional: well developed and cooperative Eyes: PERRL, conjunctivae normal, anicteric sclerae Respiratory: normal respiratory effort, lungs clear to auscultation Cardiovascular: RRR, no murmur, no edema Gastrointestinal (Abdomen): Inspection/Auscultation: abdomen normal to inspection and + hypoactive bowel sounds Percussion/Palpation: + abdomen tender (epigastric ) and abdomen soft; no abdominal mass obese Skin: no rashes, warm and dry normal turgor Neurologic: PERRL, EOMI, accommodation nl, no face palsy, no dysarthria awake; not confused Psychiatric: A+Ox3, euthymic affect Orientation: alert, oriented x 3 and cooperative Lymphatic: no cervical or axillary lymphadenopathy Results & Data ([facility]) Vital Signs (Past 12 Hours) Vital Signs Temp Pulse Pulse Pulse Resp BP BP 04/24/21 10:27 79 17 150/61 H 04/24/21 09:55 37.4 C 77 18 141/62 H 04/24/21 09:30 79 24 121/54 L 04/24/21 09:00 80 26 H 133/79 04/24/21 08:30 72 21 145/60 H 04/24/21 07:29 75 23 132/51 L 04/24/21 06:02 77 20 124/47 L 04/24/21 04:59 65 20 138/48 L 04/24/21 04:22 37.0 C 64 18 139/67 Pulse Ox 04/24/21 10:27 100 04/24/21 09:55 100 04/24/21 09:30 98 04/24/21 09:00 98 04/24/21 08:30 99 04/24/21 07:29 100 04/24/21 06:02 97 04/24/21 04:59 95 04/24/21 04:22 99 Laboratory Results WBC 11, Hb 8.2, Hct 28, Plts 270, Na 136, K 4 BUN 33, X 3.1, glucose 276. Diagnostic Findings Non contrast CT 04/24/21: Fluid-filled distal esophagus. Postoperative changes of Chente-en-Y gastric bypass. No bowel obstruction or bowel wall thickening. Colonic diverticulosis without acute diverticulitis. Mild to moderate fecal retention. Normal appendix. Ventral abdominal wall hernias are noted, the largest with diastases of 4.4 cm within the periumbilical distribution contains nonobstructed loops of small bowel with mesenteric fat. No acute fracture. Degenerative changes of the spine, pelvis and hips. Numerous Schmorl's nodes of the vertebral bodies. 1. No bowel obstruction or bowel wall thickening. Normal appendix. 2. Small ventral abdominal wall hernia contains mesenteric fat and nonobstructed loops of small bowel. 3. Colonic diverticulosis. 4. Nonobstructing right nephrolithiasis. 5. Additional findings as above.
[2021-04-24] MEDS ORDERED: INSULIN HUMAN REGULAR SC SCH (11:30)
[2021-04-24] MEDS ORDERED: LIDOCAINE 2% 2 ML VIAL/AMP(20MG/ML) INFIL ONE (12:45)
[2021-04-24] MEDS ORDERED: PROPOFOL IV EMULSION 10 MG/ML 20 ML VIAL IV ONE (12:45)
[2021-04-24] MEDS ORDERED: SUCCINYLCHOLINE CHLORIDE 20 MG/ML 10 ML VIAL IV ONE (12:45)
[2021-04-24] MEDS ORDERED: ePHEDrine sulfate 50 MG/ML AMP IV PRN (12:48)
[2021-04-24] MEDS ORDERED: ATROPINE SULFATE 0.1 MG/ML 10ML SYR IV PRN (12:48)
[2021-04-24] MEDS ORDERED: PROMETHAZINE HCL 6.25 MG in SODIUM CHLORIDE 0.9% 50 ML IV PRN (12:48)
[2021-04-24] MEDS: fentaNYL citrate 100 MCG/2 ML VIAL IV PRN ×4 (12:53→13:08)
--- NOTE | 2021-04-24 13:02 | GI REPORT ---
Patient Name: Candi Irvin Procedure Date: 04/24/2021 11:50 AM Date of : 1960 Admit Type: Inpatient Age: 60 Gender: Female Attending MD: Adin Borja MD Procedure: Upper GI endoscopy Providers: Adin Borja MD Referring MD: Luis Fernando Rojas, Álvaro Red Md Indications: Hematemesis Patient Profile: 60 yo with hx of Gastric bypass in 2017 in [place] and recently started ESRD in January 2021, presenting with progessive early satiety and acute onset of hematemsis x 4 hrs. Given DDAVP prior to procedure. Medicines: General Anesthesia Complications: No immediate complications. Estimated blood loss: None. Estimated Blood Loss: Estimated blood loss: none. Procedure: Pre-Anesthesia Assessment: - Pre-Anesthesia Assessment: - Prior to the procedure, a History and Physical was performed, and patient medications, allergies and sensitivities were reviewed. The patient's tolerance of previous anesthesia was reviewed. Please see Barcoding for complete details. - The risks and benefits of the procedure and the sedation options and risks were discussed with the patient. All questions were answered and informed consent was obtained. - Patient identification and proposed procedure were verified prior to the procedure by the physician and the nurse. The procedure was verified in the pre-procedure area in the procedure room. After obtaining informed consent, the endoscope was passed carefully and meticuously under direct vision and only advanced when the lumen was clearly identified, C02 insuflation was utilized throughout the entirity of the procedure. Throughout the procedure, the patient's blood pressure, pulse, and oxygen saturations were monitored continuously. After obtaining informed consent, the endoscope was passed under direct vision. Throughout the procedure, the patient's blood pressure, pulse, and oxygen saturations were monitored continuously. The Endoscope was introduced through the mouth, and advanced to the body of the stomach. The upper GI endoscopy was accomplished without difficulty. The patient tolerated the procedure well. Findings: The examined esophagus was normal. 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 The gastrojejunal anastomosis was characterized by large elongated and obstructing clot that extended from the GJ anastomosis to the GE junction. This could not be traversed. The clot was firm and elongated. Area was injected with 6 mL of a 1:10,000 solution of epinephrine in a circumfrential fashion around this elongated clot prior to attempts to remove. Attempts to pass the scope into the jejunum were unsuccessful as well as inability to remove the clot with either suction or mechanical methods. Due to lack of ongoing bleeding and inablity to visualize source and presumed anatomotic issue, procedure was aborted and will plan to transfer to tertiary care center with IR and MIS surgery availability. Impression: - Normal esophagus. - Chente-en-Y gastrojejunostomy with gastrojejunal anastomosis characterized by large obstructing clot that extended from the GJ anastomosis to the GE junction. Injected. - No specimens collected. Recommendation: - Transfer patient to [facility] with IR and MIS surgical availability. - Continue IV PPI GTT - NPO - Case discussed with [facility]. - Continue to support hemodynamics. Adin Borja MD 04/24/2021 1:01:33 PM This report has been signed electronically. Note Initiated On: 04/24/2021 11:50 AM Number of Addenda: 0 I attest to the content of the Intraoperative Record and orders documented therein, exceptions below {[id number]}
--- NOTE | 2021-04-24 14:00 | Anesthesiology Progress Note ---
Date of Service April 24, 2021 Anesthesia Post Procedure Vital Signs Vital Signs: Temp Pulse Pulse Pulse Pulse Resp BP 04/24/21 13:35 69 14 04/24/21 13:25 97.5 F L 69 13 04/24/21 13:15 74 10 L 04/24/21 13:05 72 14 04/24/21 12:55 74 23 04/24/21 12:45 78 26 H 04/24/21 12:37 97.0 F L 74 24 04/24/21 11:31 81 20 04/24/21 11:01 80 20 04/24/21 10:27 79 17 04/24/21 09:55 99.3 F 77 18 04/24/21 09:30 79 24 121/54 L 04/24/21 09:00 80 26 H 133/79 04/24/21 08:30 72 21 145/60 H 04/24/21 07:29 75 23 132/51 L 04/24/21 06:02 77 20 04/24/21 04:59 65 20 04/24/21 04:22 98.6 F 64 18 139/67 BP Pulse Ox 04/24/21 13:35 131/55 L 99 04/24/21 13:25 127/51 L 98 04/24/21 13:15 125/50 L 96 04/24/21 13:05 134/64 99 04/24/21 12:55 146/53 H 100 04/24/21 12:45 145/64 H 100 04/24/21 12:37 144/88 H 100 04/24/21 11:31 110/66 100 04/24/21 11:01 111/49 L 100 04/24/21 10:27 150/61 H 100 04/24/21 09:55 141/62 H 100 04/24/21 09:30 98 04/24/21 09:00 98 04/24/21 08:30 99 04/24/21 07:29 100 04/24/21 06:02 124/47 L 97 04/24/21 04:59 138/48 L 95 04/24/21 04:22 99 Pain Intensity Bilateral Abdomen: Pain Intensity: 5 Abdomen: Pain Intensity: 5 Transfer of Care Handoff Completed per policy Notes Mental Status: alert / awake / arousable and participated in evaluation Patient Amnestic to Procedure: Yes Nausea / Vomiting: adequately controlled Pain: adequately controlled Airway Patency, RR, SpO2: stable & adequate BP & HR: stable & adequate Hydration State: stable & adequate Anesthetic Complications: no major complications apparent and Pt Satisfied with anesthetic care
[2021-04-24] MEDS ORDERED: DEXTROSE 50% 50 ML SYRINGE IV PRN (14:30)
[2021-04-24] MEDS ORDERED: GLUCOSE 10 TABS/TUBE PO PRN (14:30)
[2021-04-24] MEDS ORDERED: GLUCAGON FOR INJ 1 MG VIAL IM PRN (14:30)
[2021-04-24] MEDS ORDERED: GLUCOSE 40% GEL 15 GM TUBE PO PRN (14:30)
[2021-04-24] MEDS ORDERED: CARBOHYDRATES FOR HYPOGLYCEMIA PO PRN (14:30)
[2021-04-24 14:58] LABS: Hematocrit (blood only) 22.5 % (37-47); Hemoglobin 7.3 g/dL (12.0-16.0)
[2021-04-24] MEDS ORDERED: INSULIN REGULAR 250 UNITS in SODIUM CHLORIDE 0.9% 247.5 ML IV SCH (15:00)
[2021-04-24] MEDS ORDERED: NovoLIN-R BOLUS FROM BAG IV ONE (15:00)
--- NOTE | 2021-04-24 15:07 | Pharmacy Report ---
Pharmacy Glycemic Short Note 2 - Date of Service April 24, 2021 - Glycemic Short BSG Results (Last 24 hours): 04/24/21 04/24/21 04/24/21 05:10 09:54 09:56 Glucose 226 H POC Glucose 317 H* 319 H* 04/24/21 04/24/21 04/24/21 10:43 10:45 12:39 Glucose POC Glucose 307 H* 304 H* 339 H* 04/24/21 13:21 Glucose POC Glucose 282 H OUTPATIENT ANTIDIABETIC REGIMEN: * Lantus 23 units qAM * Novolog CR of 1 unit per 4 grams of carbohydrates consumed ASSESSMENT: * Ms Finley is a 60 y/o F with a PMH of Type 2 DM on insulin at home who presents with upper GI bleeding. BSGs were uncontrolled on admission with BSGs of [phone] prior to EGD. Patient received 20 units of SQ regular insulin prior to EGD. * Patient underwent EGD and clot was unable to be removed. * Plan is for patient to be transferred to [facility]. * In meantime, patient is critically ill so will start insulin infusion per protocol. PLAN FOR INPATIENT GLYCEMIC CONTROL: * Insulin infusion per protocol PLAN FOR DISCHARGE: * TBD
[2021-04-24] MEDS ORDERED: MoRPHine SULFATE 4 MG/ML 1 ML CARP\\VIAL IV PRN (16:23)
[2021-04-24] MEDS ORDERED: SODIUM CHLORIDE 0.9% 250 ML IV PRN (16:25)
[2021-04-24] MEDS ORDERED: MoRPHine SULFATE 4 MG/ML 1 ML CARP\\VIAL ONE (16:26)
[2021-04-24] MEDS ORDERED: INSULIN ASPART 100 UNITS/ML 3 ML PEN SC SCH ×2 (16:30→18:15)
--- NOTE | 2021-04-24 16:58 | Billing Data ---
Date of Service April 24, 2021 Coding Level of Care Code Critical Care 1st - mins
--- NOTE | 2021-04-24 17:35 | Communication Note ---
Date of Service: April 24, 2021 Patient underwent EGD today with GI which showed Chente-en-Y gastrojejunostomy with gastrojejunal anastomosis characterized by large obstructing clot that e xtended from the GJ anastomosis to the GE junction. Patient being monitored in ICU. Currently hemodynamically stable. Most recent Hgb 7.3, will transfuse 1 unit PRBC. Patient accepted to [facility] and [facility]. Awaiting bed placement. Noted that patient has been accepted to non-ICU level of care, if patient's clinical status deteriorates, will have to update [facility] for need for ICU bed. [facility] accepting physician - Dr. Alfaro [facility] accepting physician - Dr. Nichols (medicine) and Dr. Jones (GI)
[2021-04-24] MEDS ORDERED: Nursing to Pharmacy Communication SCH (18:00)
[2021-04-24] MEDS ORDERED: LANTUS PER UNIT CHARGE SQ ONE (18:15)
--- NOTE | 2021-04-24 21:22 | Consultation Report ---
NEPHROLOGY CONSULTATION NOTE DATE OF SERVICE: 04/24/2021 REASON FOR CONSULT: Dialysis patient admitted with GI bleed/hematemesis. HISTORY OF PRESENT ILLNESS: The patient is a 60-year-old female with long-term diabetes and recently started chronic hemodialysis on Friday, Friday, Friday through a dialysis catheter. She was actu ally supposed to have an extensive arm surgery for malignant melanoma today. However, early this mor rose mary, she started vomiting blood at home, after which she presented to the Emergency Department rathe r than going to the surgery that was scheduled at [facility]. She was having GI bl eed and already had an endoscopy done. This showed bleeding at the possible anastomotic site of the previous gastric bypass. Because of the complexity of the nature of bleeding, she is in the process of being transferred to either [facility] or to [facility]. Hemoglobin la st checked was 7.3, which is lower than her usual. The patient's hemodynamic signs appear fairly sta ble as of now. CT scan did not show any major findings. She had regular dialysis yesterday without any complication. She still makes urine, but not a lot. The patient is a very, very difficult stick for IV cannulation as well as blood draw. She denied having any other symptoms. Denied any chest p ain, nausea, abdominal pain, diarrhea, constipation, chest pain, orthopnea, PND, or syncope. However , she was having nonspecific weakness for the last few days. It appears she has had a total of 10 to 12 episodes of hematemesis as well as one episode of black-colored stool. ALLERGIES: CHIDI INHIBITOR. MEDICATIONS: Home medication list was reviewed in detail and is as per the reconciliation list. PAST MEDICAL AND SURGICAL HISTORY: Chronic diastolic congestive heart failure. ESRD, on chronic hemo dialysis Friday, Friday, Friday. Depression. Type 2 diabetes, longstanding duration. Difficult ai rway for intubation. Endometrial carcinoma, status post hysterectomy. History of malignant melanoma in the past as well as current. Hypertension, hypothyroidism, major depressive disorder. Obstructive sleep apnea, on CPAP. Sick sinus syndrome, status post pacemaker. Cholecystectomy, gastric bypass, k nee surgery, total abdominal hysterectomy. FAMILY HISTORY: Negative for renal disease or dialysis. SOCIAL HISTORY: Never smoked. No alcohol. She is and lives with her spouse. Does not use oxygen or wheelchair at home. REVIEW OF SYSTEMS: As detailed in the HPI; unless stated otherwise, 12 systems are reviewed and nega tive. PHYSICAL EXAMINATION: GENERAL: A middle-aged female, who is somewhat obese. She is not in any overt respiratory distress, but does appear to be very weak and sad at this time. VITAL SIGNS: Include blood pressure 116/34, pulse rate 74, temperature 37.1, 100% on 1.5 liter nasal cannula. HEENT: Mucous membrane is moist. NECK: Supple. No jugular venous distention. CHEST: Bilaterally clear to auscultation. CARDIOVASCULAR: S1 and S2, regular rate and rhythm. ABDOMEN: Slightly tender in the epigastrium, but otherwise soft. EXTREMITIES: Show no edema. SKIN: Shows no rashes. NEUROLOGIC: She is awake, alert, oriented x3 and she is moving all 4 extremities. PSYCHIATRIC: She appears to be quite depressed with the current situation and the turn of events thi s morning. LABORATORY TEST: Hemoglobin is 7.3 this morning, which is lower than her more recent blood work done as an outpatient. Sodium 136, potassium 4.1, chloride 97, BUN 33, creatinine 3.17, albumin 2.7. CT abdomen and pelvis unremarkable. ASSESSMENT AND PLAN: A 60-year-old female with end-stage renal disease, on chronic hemodialysis , Friday, Friday and is status post gastric bypass, now admitted with upper gastrointestinal ble ed related with anastomotic site of the previous gastric bypass surgery. 1. End-stage renal disease: She is on chronic hemodialysis Friday, Friday, Friday. If she is st ill in this hospital tomorrow, we will do it here, but it appears she is on the way to be transferred to a tertiary center. She will get dialysis there. We will not be using heparin given severe gastr ointestinal bleed. Her current hemoglobin of 7.3 is significantly less than her recent blood work do ne as an outpatient in the dialysis unit. No evidence of major fluid overload or electrolyte issue. 2. Gastrointestinal bleed secondary to anastomotic bleed at the gastric bypass site: She is being t ransferred to a tertiary center. Defer to primary care and gastrointestinal. Job ID: [id number]
--- NOTE | 2021-04-25 03:30 | Discharge Summary ---
Date of Service April 25, 2021 Admission HPI Per Admitting Provider 60-year-old female with PMH DM type II, ESRD on hemodialysis MWF, hypothyroidism, chronic diastolic CHF, MINISTERIO on CPAP, SSS s/p pacemaker, HTN, and other problems listed below who presents to the ED for evaluation of hem atemesis. Patient reports a few days ago, she was having early satiety and nausea after meals. Last evening after having a couple bites of her dinner, she started to have vomiting. She reports having 3-4 episodes before coming to the ED this morning. Emesis has been grossly bloody in nature. Reports epigastric abdominal pain. Had a bowel movement in the ED that she describes as black in color. During my exam, patient had one episode of about 200 cc grossly bloody hematemesis. She reports she has had about 8 other episodes similar to this. She reports feeling slightly dizzy. No syncopal events. She denies chest pain or shortness of breath. No other recent illnesses, fevers, chills. She denies urinary symptoms. Patient reports that she was to have surgery on her right upper arm today to remove a melanoma. In the ED, patient has remained hemodynamically stable. Hgb 8.2 -> 8.0. CT ABD/pelvis unremarkable for acute findings. Patient was given IV famotidine and IV Zofran x 2 doses. I have notified the GI and ICU teams. Discharge Data Consultations 04/24/21 07:34 ED Decision to Admit Stat 04/24/21 08:57 Consult Gastroenterology Stat 04/24/21 09:01 Consult Mine Wedge Sawyer Routine 04/24/21 10:04 Consult Nephrology Routine Procedures Performed Operation Date: 04/24/21 09:35 Actual Procedures p Esophagogastroduodenoscopy(Not Applicable) - Adin Borja MD Hospital Course (1) Upper GI bleed: (as per adm HP) Admit to ICU -Patient presenting from home with reports of several episodes of hematemesis. During my exam, patient had one episode of grossly bloody hematemesis ~200 cc. -EGD 04/2020 - Normal esophagus. Chente-en-Y gastrojejunostomy with gastrojejunal anastomosis characterized by inflammation. Biopsied. Normal examined jejunum. -Colonoscopy 2017 - A 4 mm polyp was found in the ascending colon. Scattered small-mouthed diverticula were found in the sigmoid colon. -Chente-en-y gastric bypass 2017 -Hgb 8.2 -> 8.0 -Serial H&H, low threshold for transfusion -Hemodynamically stable IV PPI initiated on admission. Patient underwent urgent EGD which showed Chente-en-Y gastrojejunostomy with gastrojejunal anastomosis characterized by large obstructing clot that extended from the GJ anastomosis to the GE junction. GI specialist recommended [facility] transfer for interventional radiology and minimally invasive surgery capabilities. Patient kindly accepted for transfer to [facility] by Dr. Alfaro as per conversation with a.m. provider. Patient later left hospital by [facility]. Total time to prepare this discharge summary was less than 10 minutes.
== END 2021-04-24 22:51 | disposition short-term general hospital (02) | DRG 377 ==
LOC: ED 04:18 → EDINP 08:17 → SUATTDRO 08:17 → 1E 13:56

== ENCOUNTER 2022-03-26 11:59 | Inpatient (IN) ==
--- NOTE | 2022-03-26 13:46 | Emergency Department Note ---
Impression & Plan Acute dyspnea, ESRD (end stage renal disease) on dialysis, COVID-19 ED Provider Note NAME: TAMARA EAGLE AGE: 61 SEX: F : 1960 ARRIVES VIA: Walk-In INFORMANT: Patient, ED PROVIDER(S): Jayro Cates MD Chief Complaint: Shortness of breath, cough, COVID HPI: Patient presents with the above symptoms. The patient states that she has had symptoms of COVID since Friday and recently tested positive on Friday. The patient does receive dialysis and is typically Friday but they did not have a COVID room until today. The patient did receive her full course of dialysis session today. The patient still complains of shortness of breath and mild productive cough with discolored sputum. The patient has been vaccinated including a booster for COVID-19. Patient denies any known sick c ontacts or recent travel. Patient has been taking some Tylenol for her symptoms which included the shortness of breath cough headache and generalized weakness. The patient denies any vomiting but has had some diarrheal illness. No blood in the stool. The patient does still make urine. Patient denies any abdominal pains. The patient states that she does suffer from some orthopnea and dyspnea on exertion. Patient was also concerned as she was told to present to the emergency department if she had a lower pulse ox and states that her pulse oximeter was 88% today. ROS: See HPI for pertinent positives and negatives. A total of 10 systems were reviewed and otherwise negative. Past medical history: See below Surgical history: See below Social history: See below Physical Exam: GENERAL: NAD, wearing a mask, non-toxic. EYE EXAM: Normal conjunctiva. PERRL, no anisocoria and EOM's grossly intact w/o pain. NECK: Supple, no nuchal rigidity, no adenopathy, non-tender. No signs of meningi smus. FROM of the neck with good chin to chest and neck extension. No stridor. LUNGS: Bibasilar crackles. HEART: NSR, no MRG. ABDOMEN: Abdomen soft, non-tender, normo-active bowel sounds, no masses, no rebound or guarding. BACK: No CVA TTP. SKIN: No rashes and no bruising. UPPER EXTREMITIES: Upper extremities are grossly normal. LOWER EXTREMITIES: Grossly normal, no edema. NEURO EXAM: A&O x3, cranial nerves II-XII grossly intact, normal speech, moves all 4 extremities. Differential diagnoses: Reactive airway disease, pneumonia, pneumothorax, COPD, CHF, infections, cardiac ischemia, pulmonary embolism, musculoskeletal, gastrointestinal, as well as other pathologies. Course: Patient was seen and evaluated the bedside. Full history physical exam was performed. EKG interpreted by me Atrial paced rhythm, rate of 63, normal axis, no obvious ST elevations. Imaging Studies: See Below Cardiac monitoring: An order was placed for continuous cardiac monitoring. The monitor shows a rate of 72 with regular rhythm. MDM: Patient did have blood work completed given Tessalon Perle. Patient has a normal white count hemoglobin of 10.9. The patient's anemia does appear to be improved from prior. Kidney function likely at baseline given creatinine 3.9 but potassium is normal. Glucose elevated at 227. BNP is elevated troponin is normal not. COVID positive. Chest x-ray does show some pulmonary vascular congestion and cardiomegaly. Given the patient's prior history that is complex in the setting of at home hypoxemia which is fairly not present in the department still believe the patient might benefit from continued observation and treatment here as an inpatient. I did speak the on-call hospitalist Joy Paez PA-C and the patient was admitted by Dr. Baird. Steroids deferred to inpatient team given the patient's prior history of hyperglycemia and the fact that the patient has not been hypoxemic here in the department. Past Med/Surg History Medical History Chronic diastolic CHF (congestive heart failure) CKD (chronic kidney disease), stage III on dialysis -- -w - [place] Depression Diabetes mellitus, type II Endometrial carcinoma (02/23/13) "S/P hysterectomy " ESRD (end stage renal disease) on dialysis - - [facility] GERD (gastroesophageal reflux disease) History of anesthesia reaction when had port inserted needed more medication and could feel everything History of melanoma HLD (hyperlipidemia) HTN (hypertension) Hypothyroidism MDD (major depressive disorder) MINISTERIO on CPAP Pacemaker SSS [employer] follows with dr rosalie MENDEZ (sick sinus syndrome) Pt admitted for elective pacemaker due to SSS. She underwent procedure without any complications. Monitored over night and discharged home. Surgical History H/O esophagogastroduodenoscopy H/O hernia repair History of cholecystectomy Hx of cardiac cath "2012, negative for CAD " Hx of gastric bypass S/P dialysis catheter insertion right side of chest S/P knee surgery S/P JERSEY-BSO Family History Other Colonic polyp GERD (gastroesophageal reflux disease) Social History Smoking Status: Never smoker Second Hand Exposure: No; Do You Dip or Chew Tobacco: No; Hx Alcohol Use: No Hx Substance Use: No Preferred Language: Urdu Communication Ability: Effective Labor/Excavator Required: No Beliefs That Will Affect Care: None marital status: Current Living Situation: Spouse Current Living Situation Comment: lives with Other Information That Helps Us Care for You: No Feels Safe at Home: Yes Safety Concerns: Feels Safe At This Time Assistive Devices: None Allergies Allergies Allergy/AdvReac Type Severity Reaction Status Date / Time CHIDI Inhibitors AdvReac Mild COUGH Verified 03/26/22 16:53 Home Meds Home Medications Medication Instructions Recorded Confirmed amlodipine 5 mg tablet 5 mg PO DAILY 03/26/22 03/26/22 aspirin 81 mg chewable tablet 81 mg PO HS 03/26/22 03/26/22 atorvastatin 40 mg tablet 40 mg PO HS 03/26/22 03/26/22 carvedilol 12.5 mg tablet 12.5 mg PO AMHS 03/26/22 03/26/22 cholecalciferol (vitamin D3) 25 25 mcg PO DAILY 03/26/22 03/26/22 mcg (1,000 unit) tablet (Vitamin D3) citalopram 40 mg tablet 20 mg PO DAILY 03/26/22 03/26/22 cyanocobalamin (vitamin B-12) 1,000 mcg IM WE 03/26/22 03/26/22 1,000 mcg/mL injection solution docusate sodium 100 mg capsule 100 mg PO BID PRN Constipation 03/26/22 03/26/22 famotidine 20 mg tablet 20 mg PO BID PRN Acid Reflux 03/26/22 03/26/22 gabapentin 600 mg tablet 600 mg PO HS 03/26/22 03/26/22 insulin aspart U-100 100 unit/mL 0 unit subcut DIRECTED 03/26/22 03/26/22 (3 mL) subcutaneous pen (Novolog Flexpen U-100 Insulin aspart) insulin glargine 100 unit/mL (3 14 unit subcut QAM 03/26/22 03/26/22 mL) subcutaneous pen (Lantus Solostar U-100 Insulin) ketoconazole 2 % shampoo 1 applic topical DIRECTED PRN .. 03/26/22 03/26/22 levothyroxine 100 mcg tablet 100 mcg PO DAILY 03/26/22 03/26/22 lidocaine-prilocaine 2.5 %-2.5 % 1 applic topical DIRECTED 03/26/22 03/26/22 topical cream melatonin 10 mg tablet 10 mg PO HS 03/26/22 03/26/22 misoprostol 100 mcg tablet 100 mcg PO QID 03/26/22 03/26/22 omeprazole 40 mg capsule,delayed 40 mg PO BID 03/26/22 03/26/22 release polyethylene glycol 3350 17 gram 17 g PO DAILY PRN Constipation 03/26/22 03/26/22 oral powder packet sevelamer carbonate 800 mg tablet 1,600 mg PO .TIDM & SNACKS 03/26/22 03/26/22 sucralfate 1 gram tablet 1 g PO ACHS 03/26/22 03/26/22 vit B complx, C-iron 8 mg-folic 1 tab PO QAM 03/26/22 03/26/22 acid 800 mcg-D3 1,000 unit-zinc tablet (ProRenal) Results & Data (ED) Vital Signs Vital Signs - 24 hr 03/26/22 12:12 03/26/22 14:15 03/26/22 14:15 Temperature 37.2 C Temperature Source Temporal Artery Scan Pulse Rate 82 Pulse Rate [Radial] 80 Pulse Rhythm Regular Pulse Rhythm [Radial] Regular Pulse Strength Normal Pulse Strength [Radial] Normal Respiratory Rate Respiratory Effort / Characteristics Non-Labored Spontaneous Non-Labored Non-Labored Respiratory Depth Normal Normal Respiratory Pattern Regular Regular Blood Pressure 126/60 Blood Pressure [Left Arm] 143/87 H Blood Pressure Mean 82 Blood Pressure Mean [Left Arm] 105 Blood Pressure Position Sitting Blood Pressure Position [Left Arm] Lying Pulse Oximetry 96 98 98 Oxygen Delivery Method Room Air Room Air Room Air Sepsis Recent Fever Within 48 Hours Yes Sepsis New/Unexplained Change in Mental Status No Sepsis Action Taken by Nursing No Action Required 03/26/22 14:15 03/26/22 16:03 Temperature Temperature Source Pulse Rate 80 Pulse Rate [Radial] 66 Pulse Rhythm Regular Pulse Rhythm [Radial] Pulse Strength Pulse Strength [Radial] Respiratory Rate 22 20 Respiratory Effort / Characteristics Non-Labored Respiratory Depth Normal Respiratory Pattern Regular Blood Pressure Blood Pressure [Left Arm] Blood Pressure Mean Blood Pressure Mean [Left Arm] Blood Pressure Position Blood Pressure Position [Left Arm] Pulse Oximetry 98 98 Oxygen Delivery Method Room Air Room Air Sepsis Recent Fever Within 48 Hours Sepsis New/Unexplained Change in Mental Status Sepsis Action Taken by Half-Way Medications Current Medication List: was personally reviewed by me Laboratory Data Attestation: I reviewed the patient's lab results. Result diagrams: 03/26/22 14:20 03/26/22 14:20 Lab Results 03/26/22 03/26/22 03/26/22 Range/Units 14:20 14:20 14:20 WBC 7.82 (4.8-10.8) K/ul RBC 3.65 L (3.93-5.22) M/uL Hgb 10.9 L (12.0-16.0) g/dl Hct 35.0 (34.1-44.9) % MCV 95.9 (80.0-100.0) fL MCH 29.9 (25.0-34.0) pg MCHC 31.1 L (32.0-36.0) g/dL RDW Std Deviation 48.8 H (36.4-46.3) fL RDW Coeff of Leatha 13.8 (11.5-14.5) % Plt Count 208 (130-400) K/uL MPV 10.3 (9.4-12.3) fL Immature Gran % (Auto) 0.3 % Neut % (Auto) 62.3 % Lymph % (Auto) 24.0 % [place] % (Auto) 12.0 % Eos % (Auto) 0.8 % Baso % (Auto) 0.6 % Neut # (Auto) 4.87 (1.4-6.5) K/uL Lymph # (Auto) 1.88 (1.2-3.4) K/uL [place] # (Auto) 0.94 H (0.24-0.82) K/uL Eos # (Auto) 0.06 (0-0.50) K/uL Baso # (Auto) 0.05 (0-0.2) K/uL Immature Gran # (Auto) 0.02 (0.00-0.02) K/uL PT 10.5 (9.0-12.0) Seconds INR 1.0 (0.9-1.1) APTT 27.4 (21.0-31.0) Seconds PTT Ratio 1.0 Sodium 134 L (136-145) mmol/L Potassium 4.0 (3.5-5.1) mmol/L Chloride 94 L (98-107) mmol/L Carbon Dioxide 29 (21-32) mmol/L Anion Gap 11 (3-11) BUN 30 H (6-23) mg/dl Creatinine 3.94 H (0.6-1.2) mg/dl Est Cr Clr Drug Dosing 16.8 ml/min Est GFR ( Amer) 13.2 ml/min Est GFR (Non-Af Amer) 11.4 ml/min BUN/Creatinine Ratio 7.6 L (10-20) Glucose 227 H (70-99(Fasting)) mg/dl Calcium 8.9 (8.5-10.1) mg/dl Magnesium 2.0 (1.7-2.4) mg/dl Total Bilirubin 0.4 (0.2-1.0) mg/dl AST 19 (13-39) U/L ALT 6 L (7-52) U/L Alkaline Phosphatase 141 H (34-104) U/L Troponin I High Sens 11.4 (0-14) pg/ml B-Natriuretic Peptide (0-100) pg/ml Total Protein 7.3 (6.0-8.3) gm/dl Albumin 3.9 (3.4-5.0) gm/dl Globulin 3.4 (2.5-4.0) gm/dl Albumin/Globulin Ratio 1.1 (0.9-2) Procalcitonin (0-0.5) ng/ml SARS-CoV-2, RNA, NAAT (NEGATIVE) 03/26/22 03/26/22 03/26/22 Range/Units 14:20 14:26 14:40 WBC (4.8-10.8) K/ul RBC (3.93-5.22) M/uL Hgb (12.0-16.0) g/dl Hct (34.1-44.9) % MCV (80.0-100.0) fL MCH (25.0-34.0) pg MCHC (32.0-36.0) g/dL RDW Std Deviation (36.4-46.3) fL RDW Coeff of [place] (11.5-14.5) % Plt Count (130-400) K/uL MPV (9.4-12.3) fL Immature Gran % (Auto) % Neut % (Auto) % Lymph % (Auto) % [place] % (Auto) % Eos % (Auto) % Baso % (Auto) % Neut # (Auto) (1.4-6.5) K/uL Lymph # (Auto) (1.2-3.4) K/uL [place] # (Auto) (0.24-0.82) K/uL Eos # (Auto) (0-0.50) K/uL Baso # (Auto) (0-0.2) K/uL Immature Gran # (Auto) (0.00-0.02) K/uL PT (9.0-12.0) Seconds INR (0.9-1.1) APTT (21.0-31.0) Seconds PTT Ratio Sodium (136-145) mmol/L Potassium (3.5-5.1) mmol/L Chloride (98-107) mmol/L Carbon Dioxide (21-32) mmol/L Anion Gap (3-11) BUN (6-23) mg/dl Creatinine (0.6-1.2) mg/dl Est Cr Clr Drug Dosing ml/min Est GFR ( Amer) ml/min Est GFR (Non-Af Amer) ml/min BUN/Creatinine Ratio (10-20) Glucose (70-99(Fasting)) mg/dl Calcium (8.5-10.1) mg/dl Magnesium (1.7-2.4) mg/dl Total Bilirubin (0.2-1.0) mg/dl AST (13-39) U/L ALT (7-52) U/L Alkaline Phosphatase (34-104) U/L Troponin I High Sens (0-14) pg/ml B-Natriuretic Peptide 317 H (0-100) pg/ml Total Protein (6.0-8.3) gm/dl Albumin (3.4-5.0) gm/dl Globulin (2.5-4.0) gm/dl Albumin/Globulin Ratio (0.9-2) Procalcitonin 1.78 H (0-0.5) ng/ml SARS-CoV-2, RNA, NAAT POSITIVE A* (NEGATIVE) Administered Medications Discontinued Medications Acetaminophen (Acetaminophen 325 Mg Tab) Confirm Administered Dose 650 mg .ROUTE .STK-MED ONE Stop: 03/26/22 18:00 Last Admin: 03/26/22 18:39 Dose: Not Given Documented By: SML Benzonatate (Benzonatate 100 Mg Capsule) 100 mg PO NOW ONE Stop: 03/26/22 14:08 Last Admin: 03/26/22 14:26 Dose: 100 mg Documented By: [facility] Imaging Data Radiologist's Impression: Chest X-Ray 03/26/22 12:17 SINGLE VIEW CHEST CLINICAL HISTORY: Dyspnea. FINDINGS: An AP, portable, upright chest radiograph is compared to study dated 02/02/2021. A right-sided central venous catheter is new from previous. A 2-lead cardiac pacemaker is unchanged in position. The heart is enlarged noting atherosclerotic calcification of the thoracic aorta. There is pulmonary vascular congestion. The lungs and pleural spaces are clear noting bibasilar atelectasis. No large pleural effusion or pneumothorax is seen. The skeletal structures are osteopenic. The bony thorax is grossly intact. IMPRESSION: Cardiomegaly and cardiac pacemaker with pulmonary vascular congestion. ACT 112: Negative or not required by law. Electronically signed by: Marco Antonio Martins M.D. 03/26/2022 3:40 PM Discharge Plan Visit Data Chief Complaint: Flu Like Symptoms Stated Complaint: COVID POSITIVE, NOT GETTING BETTER ED Provider: Jayro Cates Discharge Problem: Acute dyspnea, ESRD (end stage renal disease) on dialysis, COVID-19 Patient Disposition: Admitted As Inpatient Discharge Instructions Interventions: ED Discharge Assessment Last Done: 03/26/22 18:08
[2022-03-26] MEDS ORDERED: BENZONATATE 100 MG CAPSULE PO ONE (14:07)
[2022-03-26 14:47] LABS: Basophils # (auto) 0.05 K/uL (0-0.2); Basophils % (auto) 0.6 %; Eosinophils # (auto) 0.06 K/uL (0-0.50); Eosinophils % (auto) 0.8 %; Hemoglobin 10.9 g/dl (12.0-16.0); Immature Granulocytes # (auto) 0.02 K/uL (0.00-0.02); Immature Granulocytes % (auto) 0.3 %; Lymphocytes # (auto) 1.88 K/uL (1.2-3.4); Mean Corpuscular Hemoglobin 29.9 pg (25.0-34.0); Mean Corpuscular Hgb Conc 31.1 g/dL (32.0-36.0); Mean Corpuscular Volume 95.9 fL (80.0-100.0); Mean Platelet Volume 10.3 fL (9.4-12.3); Monocytes # (auto) 0.94 K/uL (0.24-0.82); Neutrophils # (auto) 4.87 K/uL (1.4-6.5); Neutrophils % (auto) 62.3 %; Platelet Count 208 K/uL (130-400); RDW Coefficient of Variation 13.8 % (11.5-14.5); RDW Standard Deviation 48.8 fL (36.4-46.3); Red Blood Count 3.65 M/uL (3.93-5.22); White Blood Count 7.82 K/ul (4.8-10.8)
[2022-03-26 15:00] LABS: Partial Thromboplastin Time 27.4 Seconds (21.0-31.0); Prothrombin Time 10.5 Seconds (9.0-12.0)
[2022-03-26 15:12] LABS: Albumin Globulin Ratio 1.1 (0.9-2); Albumin Level 3.9 gm/dl (3.4-5.0); BUN Creatinine Ratio 7.6 (10-20); Bilirubin,Total 0.4 mg/dl (0.2-1.0); Calcium 8.9 mg/dl (8.5-10.1); Creatinine Clr Calc Pharmacy 16.8 ml/min; Est GFR (African American) 13.2 ml/min; Est GFR (Non-African American) 11.4 ml/min; Globulin 3.4 gm/dl (2.5-4.0); Total Protein 7.3 gm/dl (6.0-8.3)
[2022-03-26 15:14] LABS: Troponin I High Sensitivity 11.4 pg/ml (0-14)
--- NOTE | 2022-03-26 15:41 | XRay Report ---
SINGLE VIEW CHEST CLINICAL HISTORY: Dyspnea. FINDINGS: An AP, portable, upright chest radiograph is compared to study dated 02/02/2021. A right-donnell ed central venous catheter is new from previous. A 2-lead cardiac pacemaker is unchanged in position. The heart is enlarged noting atherosclerotic calcification of the thoracic aorta. There is pulmonary vascular congestion. The lungs and pleural spaces are clear noting bibasilar atelectasis. No large p leural effusion or pneumothorax is seen. The skeletal structures are osteopenic. The bony thorax is g rossly intact. IMPRESSION: Cardiomegaly and cardiac pacemaker with pulmonary vascular congestion. ACT 112: Negative or not required by law. Electronically signed by: Marco Antonio Martins M.D. 03/26/2022 3:40 PM
--- NOTE | 2022-03-26 16:17 | History & Physical Report ---
Date of Service March 26, 2022 Assessment & Plan (1) COVID-19: Plan: - COVID-19 positive since Friday with home test, had symptoms starting on Friday03/23/22, known exposure to covid positive person on 03/21. - Procalcitonin ordered - Lymphocytes 1.88, neutrophils 4.87 - CXR reviewed: does not show acute findings other than some pulmonary congestions, will monitor, no overt signs of volume overload, consult nephrology and will plan on dialysis for removal of excess fluid, no need for diuretic at this time. - O2 sats at 98% now, given one dose of decadron now, no further due to hx of DM II and hyperglycemia with steroid use. Pt reports home hypoxia with sats at 88% at rest. - WBC at 10.3 - No needs for remdesivir currently (2) Chronic diastolic CHF (congestive heart failure): Plan: - Hx of such, last echo shows frin 02/07/21 with LFEF of 60-65% no wall motion abnormalities, moderate mitral annular calcification, significant mitral regurg, mild pulm hypertension is present with estimated PA systolic pressure 40 mmHG. (3) HTN (hypertension): Plan: Continue home antihypertensives including amlodipine, baby aspirin (4) HLD (hyperlipidemia): Plan: - Cont statin therapy - Last lipid panel 08/07/21 reviewed showing triglycerides of 253, cholesterol 139, LDL 92, HDL 47 (5) Diabetes mellitus, type II: Plan: - Holding home lantus with poor oral intake at this time, can use insulin sliding scale for now - Last A1C was 6.7 on 10/01/21 - (6) MINISTERIO on CPAP: Plan: - CPAP is on recall so has not been using this at home (7) SSS (sick sinus syndrome): Plan: - Pacemaker in place s/p SSS (8) ESRD (end stage renal disease) on dialysis: Plan: - Consult nephrology for HD, typical schedule is MWF, last session completed was today and removed 3 L - Makes small amount of urine, trend I/Os - Renally reduce medications and avoid nephrotoxins - AVF was supposed to be ready for use starting tomorrow, right chest wall with tunneled catheter remains in place for use with HD if needed (9) Hypothyroidism: Plan: - Cont levothyroxine 100 mcg daily - TSH of 1.67 on 01/23/22, can repeat with am labs if needed (10) MDD (major depressive disorder): Plan: - Continue celexa (11) Pacemaker: Plan: - noted in place (12) Anemia: Plan: - Chronic history of such - hgb baseline seems to be 8.5, currently 10 DVT ppx: teds, scds, heparin subq CODE: FULL CODE Dispo: From home, likely to remain in the hospital x 1-2 days History of Present Illness Chief Complaint: Flu like symptoms Primary Care Provider: Luis Fernando Rojas MD This is a 61 yo F with complex PMhx of DM type II, HTN, HLD, chronic diastolic heart failure, SSS s/p pacemaker insertion, MINISTERIO on CPAP, morbid obesity, marginal ulcer, gastroparesis, with recent laparoscopic revision of her gastroj ejunal anastomosis with vagotomy due to the marginal ulcer on 01/28/2022, ESRD on HD MWF, last session was held today due to having symptoms consistent with COVID-19 infection/flulike symptoms and the facility not having a COVID bed for HD yesterday. Her flulike symptoms including congestion, sore throat, nausea, dry heaves, diarrhea, poor oral intake, generalized weakness and fatigue have been present since last Friday. She took a home COVID test on Friday which was positive, yesterday she was swabbed at an urgent care center which was also positive, and today on repeat COVID swab in the ER was positive. She notes being around another covid positive person earlier this week but didn't know until Friday. Pt took all her morning medications today. She feels short of breath and notes her O2 sats were at 88% this morning, typically does not require any supplemental O2 at baseline. She was able to undergo the entire dialysis treatment and 3 L were removed which is slightly more than her normal per her report. She has been abiding by fluid restriction of six 8 ounce glasses of fluid per day, and denies any worsening swelling in her legs or ankles or abdomen. Recent hospitalizations: 01/28/22 - 01/31/22 at [facility] under MIIS/Bariatric surgery for laparoscopic revision of her gastrojejunal anastomosis with vagotomy due to an anastomotic marginal ulcer , and repair of an umbilical and ventral hernia 03/19/22 saw Vascular surgery for Right arm fistulogram and possible removal of transdermal catheter, but still not using the AVF as it is not mature enough Allergies Allergy/AdvReac Type Severity Reaction Status Date / Time CHIDI Inhibitors AdvReac Mild COUGH Verified 03/26/22 16:53 Home Medications Medication Instructions Recorded Confirmed Type amlodipine 5 mg tablet 5 mg PO DAILY 03/26/22 03/26/22 History aspirin 81 mg chewable tablet 81 mg PO HS 03/26/22 03/26/22 History atorvastatin 40 mg tablet 40 mg PO HS 03/26/22 03/26/22 History carvedilol 12.5 mg tablet 12.5 mg PO AMHS 03/26/22 03/26/22 History cholecalciferol (vitamin D3) 25 25 mcg PO DAILY 03/26/22 03/26/22 History mcg (1,000 unit) tablet (Vitamin D3) citalopram 40 mg tablet 20 mg PO DAILY 03/26/22 03/26/22 History cyanocobalamin (vitamin B-12) 1,000 mcg IM WE 03/26/22 03/26/22 History 1,000 mcg/mL injection solution docusate sodium 100 mg capsule 100 mg PO BID PRN Constipation 03/26/22 03/26/22 History famotidine 20 mg tablet 20 mg PO BID PRN Acid Reflux 03/26/22 03/26/22 History gabapentin 600 mg tablet 600 mg PO HS 03/26/22 03/26/22 History insulin aspart U-100 100 unit/mL 0 unit subcut DIRECTED 03/26/22 03/26/22 History (3 mL) subcutaneous pen (Novolog Flexpen U-100 Insulin aspart) insulin glargine 100 unit/mL (3 14 unit subcut QAM 03/26/22 03/26/22 History mL) subcutaneous pen (Lantus Solostar U-100 Insulin) ketoconazole 2 % shampoo 1 applic topical DIRECTED PRN .. 03/26/22 03/26/22 History levothyroxine 100 mcg tablet 100 mcg PO DAILY 03/26/22 03/26/22 History lidocaine-prilocaine 2.5 %-2.5 % 1 applic topical DIRECTED 03/26/22 03/26/22 History topical cream melatonin 10 mg tablet 10 mg PO HS 03/26/22 03/26/22 History misoprostol 100 mcg tablet 100 mcg PO QID 03/26/22 03/26/22 History omeprazole 40 mg capsule,delayed 40 mg PO BID 03/26/22 03/26/22 History release polyethylene glycol 3350 17 gram 17 g PO DAILY PRN Constipation 03/26/22 03/26/22 History oral powder packet sevelamer carbonate 800 mg tablet 1,600 mg PO .TIDM & SNACKS 03/26/22 03/26/22 History sucralfate 1 gram tablet 1 g PO ACHS 03/26/22 03/26/22 History vit B complx, C-iron 8 mg-folic 1 tab PO QAM 03/26/22 03/26/22 History acid 800 mcg-D3 1,000 unit-zinc tablet (ProRenal) Past Med/Surg History Medical History Chronic diastolic CHF (congestive heart failure) CKD (chronic kidney disease), stage III on dialysis -- - [place] Depression Diabetes mellitus, type II Endometrial carcinoma (02/23/13) "S/P hysterectomy " ESRD (end stage renal disease) on dialysis [place] GERD (gastroesophageal reflux disease) History of anesthesia reaction when had port inserted needed more medication and could feel everything History of melanoma HLD (hyperlipidemia) HTN (hypertension) Hypothyroidism MDD (major depressive disorder) MINISTERIO on CPAP Pacemaker SSS [employer] follows with dr wiggins SSS (sick sinus syndrome) Pt admitted for elective pacemaker due to SSS. She underwent procedure without any complications. Monitored over night and discharged home. Surgical History H/O esophagogastroduodenoscopy H/O hernia repair History of cholecystectomy Hx of cardiac cath "2012, negative for CAD " Hx of gastric bypass S/P dialysis catheter insertion right side of chest S/P knee surgery S/P [place]ER[place]-BSO Family History Other Colonic polyp GERD (gastroesophageal reflux disease) Social History Smoking Status: Never smoker Second Hand Exposure: No; Do You Dip or Chew Tobacco: No; Hx Alcohol Use: No Hx Substance Use: No Preferred Language: Greenlandic Communication Ability: Effective Spa Host Required: No Beliefs That Will Affect Care: None marital status: Current Living Situation: Spouse Current Living Situation Comment: lives with Other Information That Helps Us Care for You: No Feels Safe at Home: Yes Safety Concerns: Feels Safe At This Time Assistive Devices: None Review of Systems Review of Systems: Constitutional: + Low-grade fever of 98 to 99 F, no sweats or chills, + fatigue Eyes: No diplopia, no worsening or blurred vision ENT: normal hearing, no trouble swallowing Respiratory: + Cough, no sputum, + dyspnea on exertion Cardiovascular: No chest pain, tightness or palpitations Abdomen: No pain or vomiting, + nausea, +diarrhea, no constipation Musculoskeletal: No joint pain, calf pain, swelling Neurologic: + generalized weakness, numbness/tingling, or balance problems Psychiatric: No anxiety , + depression on medication Skin: No rash or itch Physical Exam Physical Exam: General: awake, alert, no apparent distress, obese with BMI of 37.8 Head: Normocephalic, atraumatic ENT: PERRL, EOMI, no pharyngeal exudate, mucous membranes moist Chest: + tunneled catheter in the R chest wall, Pacemaker in the left, Diminished breath sounds throughout, no wheeze or rales, on room air with sats at 98%, no adventitious breath sounds Cardiac: Regular rate and rhythm, no murmur, no JVD, normal peripheral pulses, good capillary refill Abdominal: NABS x 4 quadrants, soft, nondistended, nontender to palpation, no rebound or guarding Extremities: Normal inspection, no peripheral edema or erythema, calfs nontender to palpation Psych: Normal mood and affect Neuro: AAO x 3, strength intact bilaterally and rated 5/5, no motor deficits, speech is clear, no peripheral sensory deficits Results & Data Results & Data ([facility]) Vital Signs (Past 12 Hours) Vital Signs Temp Pulse Pulse Resp BP BP Pulse Ox 03/26/22 14:15 80 22 98 03/26/22 14:15 22 98 03/26/22 14:15 80 22 143/87 H 98 03/26/22 12:12 37.2 C 82 22 126/60 96 O2 Del Method 03/26/22 14:15 Room Air 03/26/22 14:15 Room Air 03/26/22 14:15 Room Air 03/26/22 12:12 Room Air Laboratory Results 03/26/22 03/26/22 03/26/22 14:26 14:20 14:20 WBC RBC Hgb Hct MCV MCH MCHC RDW Std Deviation RDW Coeff of Leatha Plt Count MPV Immature Gran % (Auto) Neut % (Auto) Lymph % (Auto) Austin % (Auto) Eos % (Auto) Baso % (Auto) Neut # (Auto) Lymph # (Auto) [place] # (Auto) Eos # (Auto) Baso # (Auto) Immature Gran # (Auto) PT INR APTT PTT Ratio Sodium 134 L Potassium 4.0 Chloride 94 L Carbon Dioxide 29 Anion Gap 11 BUN 30 H Creatinine 3.94 H Est Cr Clr Drug Dosing 16.8 Est GFR ( Amer) 13.2 Est GFR (Non-Af Amer) 11.4 BUN/Creatinine Ratio 7.6 L Glucose 227 H Calcium 8.9 Magnesium 2.0 Total Bilirubin 0.4 AST 19 ALT 6 L Alkaline Phosphatase 141 H Troponin I High Sens 11.4 B-Natriuretic Peptide 317 H Total Protein 7.3 Albumin 3.9 Globulin 3.4 Albumin/Globulin Ratio 1.1 SARS-CoV-2, RNA, NAAT POSITIVE A* 03/26/22 03/26/22 14:20 14:20 WBC 7.82 RBC 3.65 L Hgb 10.9 L Hct 35.0 MCV 95.9 MCH 29.9 MCHC 31.1 L RDW Std Deviation 48.8 H RDW Coeff of Leatha 13.8 Plt Count 208 MPV 10.3 Immature Gran % (Auto) 0.3 Neut % (Auto) 62.3 Lymph % (Auto) 24.0 Austin % (Auto) 12.0 Eos % (Auto) 0.8 Baso % (Auto) 0.6 Neut # (Auto) 4.87 Lymph # (Auto) 1.88 [place] # (Auto) 0.94 H Eos # (Auto) 0.06 Baso # (Auto) 0.05 Immature Gran # (Auto) 0.02 PT 10.5 INR 1.0 APTT 27.4 PTT Ratio 1.0 Sodium Potassium Chloride Carbon Dioxide Anion Gap BUN Creatinine Est Cr Clr Drug Dosing Est GFR ( Amer) Est GFR (Non-Af Amer) BUN/Creatinine Ratio Glucose Calcium Magnesium Total Bilirubin AST ALT Alkaline Phosphatase Troponin I High Sens B-Natriuretic Peptide Total Protein Albumin Globulin Albumin/Globulin Ratio SARS-CoV-2, RNA, NAAT Diagnostic Findings Chest X-Ray 03/26/22 12:17 SINGLE VIEW CHEST CLINICAL HISTORY: Dyspnea. FINDINGS: An AP, portable, upright chest radiograph is compared to study dated 02/02/2021. A right-sided central venous catheter is new from previous. A 2-lead cardiac pacemaker is unchanged in position. The heart is enlarged noting atherosclerotic calcification of the thoracic aorta. There is pulmonary vascular congestion. The lungs and pleural spaces are clear noting bibasilar atelectasis. No large pleural effusion or pneumothorax is seen. The skeletal structures are osteopenic. The bony thorax is grossly intact. IMPRESSION: Cardiomegaly and cardiac pacemaker with pulmonary vascular con gestion. ACT 112: Negative or not required by law. Electronically signed by: Marco Antonio Martins M.D. 03/26/2022 3:40 PM ECG Additional Comments: Atrial-paced rhythm with prolonged AV conduction Cannot rule out Anterior infarct (cited on or before 26-MAR-2022) Abnormal ECG When compared with ECG of 02-FEB-2021 14:45, Electronic atrial pacemaker has replaced Sinus rhythm 25mm/s10mm/[id number]: 11Referred by: REFERRED SELF Unconfirmed Vent. rate 63 BPM AL interval 364 ms QRS duration 90 ms QT/QTc 444/454 ms Code Status & VTE Plan Code Status Full code - discussed with the patient and her at bedside Supervising Physician Co-Signing Physician Notes I have seen and examined the patient and have discussed the case with the quei eulalia above. I agree with the assessment and plan as stated with the following exceptions. 61 yo ESRD patient on hemodialysis who missed her Friday session was sent to the ER today with classic signs and symptoms of covid-19 infection and with transient hypoxia. She reportedly had 3L of fluid removed in her session today and is now breathing well on room air without issue. Physical reveals an obese lady in NAD, who is alert and appropriate, sitting on her bed. Lungs are CTAB, heart exam is normal and there is no edema. She has ongoing nasal congestion, diarrhea, cough, and generalized malaise from covid-19. CXR reveals some pulmonary congestion. Labs reveal a normal WBC, anemia with an improved H/H, normal PLT count, normal BMP with an elevated BUN and creat to 30 and 4, respectively. Glucose is 227. Procalcitonin is 1.78 which is less reliable as a true positive in ESRD. At this time she has mild covid-19 symptoms and is not hypoxic. No indications are present for glucocorticoid therapy or antiviral therapy at this point. Will given Flonase, Robitussin AC, Mucinex and monitor her labs in the morning. If she is still doing well tomorrow, she can likely be released home to continue dialysis. Maria D Baird DO [facility] Hospitalist (1) HTN (hypertension) Hypertension type: unspecified Qualified Code(s): I10 - Essential (primary) hypertension
[2022-03-26] MEDS ORDERED: ACETAMINOPHEN 325 MG TAB ONE (17:59)
[2022-03-26] MEDS ORDERED: GLUCAGON FOR INJ 1 MG VIAL SQ PRN (18:15)
[2022-03-26] MEDS ORDERED: REMDESIVIR 200 MG in SODIUM CHLORIDE 0.9% 210 ML IV STA (18:15)
[2022-03-26] MEDS ORDERED: dexAMETHasone 6 MG in SYRINGE 0 ML IV ONE (18:15)
[2022-03-26] MEDS ORDERED: GLUCOSE 40% GEL 15 GM TUBE PO PRN (18:15)
[2022-03-26] MEDS ORDERED: NON-FORMULARY MEDICATION (Insulin Aspart U-100 [Novolog Flexpen U-100 Insulin] 100 unit/mL SQ SCH (18:15)
[2022-03-26] MEDS ORDERED: DOCUSATE SODIUM 100 MG CAP PO PRN (18:15)
[2022-03-26] MEDS ORDERED: FAMOTIDINE 20 MG TAB PO PRN (18:15)
[2022-03-26] MEDS ORDERED: CARBOHYDRATES FOR HYPOGLYCEMIA PO PRN (18:15)
[2022-03-26] MEDS ORDERED: GLUCOSE 10 TAB/TUBE PO PRN (18:15)
[2022-03-26] MEDS ORDERED: DEXTROSE 50% 50 ML SYRINGE IV PRN (18:15)
[2022-03-26] MEDS ORDERED: ONDANSETRON INJ 2 MG/ML 2 ML VIAL IV PRN (18:15)
[2022-03-26] MEDS ORDERED: ACETAMINOPHEN 325 MG TAB PO PRN (18:15)
[2022-03-26] MEDS ORDERED: POLYETHYLENE (MIRALAX) 17 GM PACK PO PRN (18:15)
[2022-03-26] MEDS ORDERED: ACETAMINOPHEN 325 MG TAB PO STA (18:15)
[2022-03-26] MEDS ORDERED: ALBUTEROL HFA 8 GM INHALER INH PRN (18:23)
[2022-03-26] MEDS: ALBUTEROL HFA 8 GM INHALER INH SCH (19:39)
[2022-03-26] MEDS ORDERED: guaiFENesin/CODEINE 100MG/10MG 5ML UDC PO STA (20:11)
[2022-03-26] MEDS ORDERED: BENZONATATE 100 MG CAPSULE PO SCH (21:00)
[2022-03-26] MEDS: GABAPENTIN 600 MG TAB PO SCH (22:19)
[2022-03-26] MEDS: SUCRALFATE 1 GM TAB PO SCH (22:19)
[2022-03-26] MEDS: PANTOprazole 40 MG TAB PO SCH (22:19)
[2022-03-26] MEDS: miSOPROStoL 100 MCG TAB PO SCH (22:19)
[2022-03-26] MEDS: guaiFENesin 600 MG TABCR PO SCH (22:20)
[2022-03-26] MEDS: carvediloL 12.5 MG TAB PO SCH (22:20)
[2022-03-26] MEDS: MELATONIN 3 MG TAB PO SCH (22:21)
[2022-03-26] MEDS: ATORVASTATIN 40 MG TAB PO SCH (22:21)
[2022-03-26] MEDS: SEVELAMER HCL 800 MG TABLET PO SCH (22:21)
[2022-03-26] MEDS: ASPIRIN 81 MG CHEW PO SCH (22:21)
[2022-03-26] MEDS: INSULIN ASPART PER UNIT SC SCH (22:22)
[2022-03-26] MEDS: FLUTICASONE PROPIONATE NA SPR 16 GM BTL NAE SCH (22:23)
[2022-03-26] MEDS: HEPARIN SOD 5,000 UNIT/0.5 ML VIAL SQ SCH (22:25)
[2022-03-27] MEDS: ALBUTEROL HFA 8 GM INHALER INH SCH ×4 (01:26→19:12)
[2022-03-27] MEDS: HEPARIN SOD 5,000 UNIT/0.5 ML VIAL SQ SCH ×3 (06:00→20:16)
[2022-03-27 07:07] LABS: Hematocrit (blood only) 34.8 % (34.1-44.9); Hemoglobin 11.1 g/dl (12.0-16.0); Mean Corpuscular Hemoglobin 30.1 pg (25.0-34.0); Mean Corpuscular Hgb Conc 31.9 g/dL (32.0-36.0); Mean Corpuscular Volume 94.3 fL (80.0-100.0); Mean Platelet Volume 10.2 fL (9.4-12.3); Platelet Count 199 K/uL (130-400); RDW Coefficient of Variation 13.2 % (11.5-14.5); RDW Standard Deviation 45.9 fL (36.4-46.3); Red Blood Count 3.69 M/uL (3.93-5.22); White Blood Count 3.95 K/ul (4.8-10.8)
[2022-03-27 07:46] LABS: Albumin Globulin Ratio 1.2 (0.9-2); Albumin Level 3.7 gm/dl (3.4-5.0); BUN Creatinine Ratio 8.1 (10-20); Bilirubin,Total 0.4 mg/dl (0.2-1.0); Calcium 9.5 mg/dl (8.5-10.1); Creatinine Clr Calc Pharmacy 13.7 ml/min; Est GFR (African American) 10.1 ml/min; Est GFR (Non-African American) 8.7 ml/min; Globulin 3.2 gm/dl (2.5-4.0); Potassium 4.8 mmol/L (3.5-5.1); Total Protein 6.9 gm/dl (6.0-8.3)
[2022-03-27] MEDS: SUCRALFATE 1 GM TAB PO SCH ×4 (07:54→19:43)
[2022-03-27] MEDS: SEVELAMER HCL 800 MG TABLET PO SCH ×3 (07:55→16:28)
[2022-03-27] MEDS: miSOPROStoL 100 MCG TAB PO SCH ×4 (07:56→19:42)
[2022-03-27] MEDS: guaiFENesin 600 MG TABCR PO SCH ×2 (07:56→19:42)
[2022-03-27] MEDS: PANTOprazole 40 MG TAB PO SCH ×2 (07:57→19:43)
[2022-03-27] MEDS: LEVOTHYROXINE SODIUM 100 MCG TABLET PO SCH (07:57)
[2022-03-27] MEDS: NEPHROCAPS PO SCH (07:58)
[2022-03-27] MEDS: CHOLECALCIFEROL 1,000 UNITS 25 MCG TAB PO SCH (07:58)
[2022-03-27] MEDS: CITALOPRAM 20 MG TAB PO SCH (07:58)
[2022-03-27] MEDS: amLODIPine BESYLATE 5 MG TAB PO SCH (07:59)
[2022-03-27] MEDS: carvediloL 12.5 MG TAB PO SCH ×2 (07:59→19:44)
[2022-03-27] MEDS: INSULIN ASPART PER UNIT SC SCH ×4 (08:08→20:12)
[2022-03-27 08:10] LABS: Estimated Average Glucose 166 mg/dl; Hemoglobin A1C 7.4 % (4.5-5.6)
[2022-03-27] MEDS: LANTUS PER UNIT CHARGE SQ SCH ×2 (08:50→20:11)
[2022-03-27] MEDS: FUROSEMIDE 10 MG/ML 10 ML VIAL IV SCH ×2 (11:39→19:45)
--- NOTE | 2022-03-27 11:46 | Hospitalist Progress Note ---
Date of Service March 27, 2022 Assessment & Plan (1) COVID-19: Plan: No covid specific treatments needed at this time. Cont flonase for supportive care. (2) HTN (hypertension): Plan: chronic, controlled, cont current therapy. (3) Diabetes mellitus, type II: Plan: chronic, inpatient glucose was elevated this morning. Started glargine and this is improved. (4) MINISTERIO on CPAP: Plan: - CPAP is on recall so has not been using this at home (5) SSS (sick sinus syndrome): Plan: - Pacemaker in place s/p SSS (6) ESRD (end stage renal disease) on dialysis: Plan: - Consult nephrology for HD, typical schedule is MWF, last session completed was 03/26 and removed 3 L - Makes small amount of urine, trend I/Os - Renally reduce medications and avoid nephrotoxins - AVF was supposed to be ready for use starting tomorrow, right chest wall with tunneled catheter remains in place for use with HD if needed -HD tomorrow. (7) Hypothyroidism: Plan: - chronic, stable - Cont levothyroxine 100 mcg daily - TSH of 1.67 on 01/23/22, can repeat with am labs if needed (8) MDD (major depressive disorder): Plan: - Continue celexa (9) Anemia: Plan: chronic, improved (10) DVT prophylaxis: Plan: Heparin Full Code Dispo-to home in am. Maria D Baird DO [facility] Hospitalist Admission and Anticipated Discharge Date Admission Date: March 26, 2022 Subjective 61 yo F presents with transient hypoxia while at dialysis, known to be covid+. Since admission she has been on room air. -reports improvement in nasal congestion and still with some cough that is better Review of Systems Review of Systems: All systems were reviewed and negative except as indicated on subjective above. Physical Exam Physical Exam: CONSTITUTIONAL: WNWD, vitals as above, generally well- appearing, NAD EYES: normal conjunctivae, no scleral icterus ENT: external ear and nose normal, MMM NECK: trachea midline, RESPIRATORY: clear to auscultation bilaterally, no crackles, rales or wheezes, normal respiratory effort CARDIOVASCULAR: regular rate and rhythm, S1 and 2 heard without murmurs, gallops or rubs, no JVD, no peripheral edema, CHEST: inspection of chest was normal GASTROINTESTINAL: soft, nontender, ND, no guarding MUSCULOSKELETAL: strength 5/5 throughout, head is normocephalic and atraumatic SKIN: warm and dry NEUROLOGIC: CN 2-12 grossly intact, no sensory deficit, normal cognition, normal speech, no tremor PSYCHIATRIC: alert cooperative and oriented to person, place and time. Euthymic mood, makes good eye contact, language grossly intact, recent and remote memory grossly intact. Results & Data Results & Data ([facility]) Vital Signs (Past 12 Hours) Vital Signs Temp Pulse Pulse Pulse Resp BP Pulse Ox 03/27/22 11:26 36.7 C 67 20 135/75 97 03/27/22 08:00 03/27/22 08:00 36.6 C 68 18 175/75 H 95 03/27/22 07:18 65 03/27/22 06:58 68 18 95 03/27/22 06:03 36.5 C 75 18 146/78 H 93 O2 Del Method 03/27/22 11:26 Room Air 03/27/22 08:00 Room Air 03/27/22 08:00 Room Air 03/27/22 07:18 03/27/22 06:58 Room Air 03/27/22 06:03 Room Air Laboratory Results Short CBC 03/26/22 03/27/22 Range/Units 14:20 06:50 WBC 7.82 3.95 L (4.8-10.8) K/ul Hgb 10.9 L 11.1 L (12.0-16.0) g/dl Hct 35.0 34.8 (34.1-44.9) % Plt Count 208 199 (130-400) K/uL BMP 03/26/22 03/27/22 14:20 06:50 Sodium 134 L 133 L Potassium 4.0 4.8 Chloride 94 L 95 L Carbon Dioxide 29 27 BUN 30 H 40 H Creatinine 3.94 H 4.92 H* D Glucose 227 H 325 H* Calcium 8.9 9.5 Liver Function 03/26/22 03/27/22 Range/Units 14:20 06:50 Total Bilirubin 0.4 0.4 (0.2-1.0) mg/dl AST 19 16 (13-39) U/L ALT 6 L 7 (7-52) U/L Alkaline Phosphatase 141 H 137 H (34-104) U/L Albumin 3.9 3.7 (3.4-5.0) gm/dl Medications Administered Current Inpatient Medications Acetaminophen (Acetaminophen 325 Mg Tab) 650 mg PO Q4H PRN PRN Reason: Moderate Pain Stop: 04/25/22 18:14 Albuterol (Albuterol Hfa 8 Gm Inhaler) 2 puffs INH Q6R PAULA Stop: 04/25/22 18:59 Last Admin: 03/27/22 13:12 Dose: 2 puffs Albuterol (Albuterol Hfa 8 Gm Inhaler) 2 puffs INH Q2H PRN PRN Reason: Shortness Of Breath Stop: 04/25/22 18:22 Amlodipine Besylate (Amlodipine Besylate 5 Mg Tab) 5 mg PO DAILY PAULA Stop: 04/26/22 08:59 Last Admin: 03/27/22 07:59 Dose: 5 mg Aspirin (Aspirin 81 Mg Chew) 81 mg PO HS PAULA Stop: 04/25/22 20:59 Last Admin: 03/26/22 22:21 Dose: 81 mg Atorvastatin Calcium (Atorvastatin 40 Mg Tab) 40 mg PO HS PAULA Stop: 04/25/22 20:59 Last Admin: 03/26/22 22:21 Dose: 40 mg Carvedilol (Carvedilol 12.5 Mg Tab) 12.5 mg PO AMHS PAULA Stop: 04/25/22 20:59 Last Admin: 03/27/22 07:59 Dose: 12.5 mg Citalopram Hydrobromide (Citalopram 20 Mg Tab) 20 mg PO DAILY PAULA Stop: 04/26/22 08:59 Last Admin: 03/27/22 07:58 Dose: 20 mg Cyanocobalamin (Cyanocobalamin 1000 Mcg/Ml Vial) 1,000 mcg IM WE PAULA Stop: 04/26/22 17:42 Last Admin: 03/27/22 16:29 Dose: 1,000 mcg Dextrose (Dextrose 50% 50 Ml Syringe) 25 - 50 ml IV UD PRN; Protocol PRN Reason: Hypoglycemia Protocol Stop: 04/25/22 18:14 Docusate Sodium (Docusate Sodium 100 Mg Cap) 100 mg PO BID PRN PRN Reason: Constipation Stop: 04/25/22 18:14 Epoetin Jordan (Epoetin Jordan 4,000 Unit/Ml Vial) 4,000 units IV ONE ONE Stop: 03/28/22 07:01 Famotidine (Famotidine 20 Mg Tab) 20 mg PO BID PRN PRN Reason: Acid Reflux Stop: 04/25/22 18:14 Fluticasone Propionate (Fluticasone Propionate Na Spr 16 Gm Btl) 2 sprays ABHISHEK HS PAULA Stop: 04/25/22 20:59 Last Admin: 03/26/22 22:23 Dose: 2 sprays Furosemide (Furosemide 10 Mg/Ml 10 Ml Vial) 100 mg IV BID PAULA Stop: 04/26/22 10:59 Last Admin: 03/27/22 11:39 Dose: 100 mg Gabapentin (Gabapentin 600 Mg Tab) 600 mg PO HS PAULA Stop: 04/25/22 20:59 Last Admin: 03/26/22 22:19 Dose: 600 mg Glucagon (Glucagon For Inj 1 Mg Vial) 1 mg SQ UD PRN; Protocol PRN Reason: Hypoglycemia Protocol Stop: 04/25/22 18:14 Glucose (Glucose 40% Gel 15 Gm Tube) 15 - 30 gm PO UD PRN; Protocol PRN Reason: Hypoglycemia Protocol Stop: 04/25/22 18:14 Glucose (Glucose 10 Tab/Tube) 4 - 8 tab PO UD PRN; Protocol PRN Reason: Hypoglycemia Treatment Stop: 04/25/22 18:14 Guaifenesin (Guaifenesin 600 Mg Tabcr) 1,200 mg PO Q12 PAULA Stop: 04/25/22 20:59 Last Admin: 03/27/22 07:56 Dose: 1,200 mg Heparin Sodium (Porcine) (Heparin Sod 5,000 Unit/0.5 Ml Vial) 7,500 units SQ Q8 PAULA Stop: 04/25/22 21:59 Last Admin: 03/27/22 13:18 Dose: 7,500 units Heparin Sodium (Porcine) (Heparin Sod (Porcine) 1000 Unit/Ml) 2,000 units IV ONE ONE Stop: 03/28/22 07:01 Heparin Sodium (Porcine) (Heparin Sod (Porcine) 1000 Unit/Ml) 500 units IV Q1H [facility] Stop: 03/28/22 09:01 Sodium Chloride (Nss 1000ml) 1,000 mls @ 0 mls/hr IV .Q0M PRN PRN Reason: For Hemodialysis Use ONLY Stop: 03/28/22 12:59 Insulin Aspart (Insulin Aspart Per Unit) 0 units SC ACHS [facility] Stop: 04/25/22 20:59 Last Admin: 03/27/22 17:08 Dose: 11 units Insulin Glargine (Lantus Per Unit Charge) 15 units SQ BID PAULA Stop: 04/26/22 08:59 Last Admin: 03/27/22 08:50 Dose: 15 units Levothyroxine Sodium (Levothyroxine Sodium 100 Mcg Tablet) 100 mcg PO DAILY PAULA Stop: 04/26/22 08:59 Last Admin: 03/27/22 07:57 Dose: 100 mcg Melatonin (Melatonin 3 Mg Tab) 9 mg PO HS PAULA Stop: 04/25/22 20:59 Last Admin: 03/26/22 22:21 Dose: 9 mg Miscellaneous (Carbohydrates For Hypoglycemia ) 15 - 30 gm PO UD PRN PRN Reason: Hypoglycemia Protocol Stop: 04/25/22 18:14 Misoprostol (Misoprostol 100 Mcg Tab) 100 mcg PO QID PAULA Stop: 04/25/22 20:59 Last Admin: 03/27/22 16:28 Dose: 100 mcg Ondansetron HCl (Ondansetron Inj 2 Mg/Ml 2 Ml Vial) 4 mg IV Q4H PRN PRN Reason: Nausea And Vomiting Stop: 04/25/22 18:14 Pantoprazole Sodium (Pantoprazole 40 Mg Tab) 40 mg PO BID [facility]; Protocol Stop: 04/25/22 20:59 Last Admin: 03/27/22 07:57 Dose: 40 mg Polyethylene Glycol (Polyethylene (Miralax) 17 Gm Pack) 17 gm PO DAILY PRN PRN Reason: Constipation Stop: 04/25/22 18:14 Sevelamer HCl (Sevelamer Hcl 800 Mg Tablet) 1,600 mg PO TIDM [facility] Stop: 04/25/22 18:59 Last Admin: 03/27/22 16:28 Dose: 1,600 mg Sucralfate (Sucralfate 1 Gm Tab) 1 gm PO ACHS [facility] Stop: 04/25/22 20:59 Last Admin: 03/27/22 16:28 Dose: 1 gm Vitamin B Complex/Folic Acid (Nephrocaps) 1 cap PO QAM [facility]; Protocol Stop: 04/26/22 08:59 Last Admin: 03/27/22 07:58 Dose: 1 cap Vitamin D (Cholecalciferol 1,000 Units 25 Mcg Tab) 1,000 units PO DAILY [facility]ULA Stop: 04/26/22 08:59 Last Admin: 03/27/22 07:58 Dose: 1,000 units (1) HTN (hypertension) Hypertension type: unspecified Qualified Code(s): I10 - Essential (primary) hypertension
--- NOTE | 2022-03-27 11:47 | Consultation Report ---
NEPHROLOGY CONSULTATION NOTE DATE OF SERVICE: 03/27/2022. REASON FOR CONSULTATION: Dialysis patient admitted with COVID infection and shortness of breath. HISTORY OF PRESENT ILLNESS: The patient is a 61-year-old female with longstanding diabetes, ESRD, on dialysis, who presented to the hospital because of COVID symptoms, which included sore throat, congestion, nausea, dry heaves, diarrhea, poor oral intake, generalized weakness and fatigue as well as increasing shortness of breath. She did go to the urgent care center and was positive for COVID. She was told to go to the Emergency Department if her oxygen saturation dropped below 90%, which it did, and was 88% at home. She normally does not require any supplemental oxygen at baseline. She had dialysis for full treatment yesterday and 3 liters were removed. She was recently admitted at [facility] for laparoscopic revision of her gastrojejunal anastomosis with vagotomy due to an anastomotic marginal ulcer and repair of umbilical and ventral hernia. Since then, she has been losing weight. At this point, she is not on any supplemental oxygen. Her blood pressure is high and she has some evidence of fluid overload. She still makes decent amount of urine and has some residual renal function, but even now she is complaining of some nausea, dry heaves, poor appetite, some diarrhea and shortness of breath. Her blood pressure is high. ALLERGIES: CHIDI INHIBITOR. MEDICATIONS: Home medication list was reviewed in detail and is as per the reconciliation list and medical admission H and P. PAST MEDICAL AND SURGICAL HISTORY: Includes chronic diastolic congestive heart failure, ESRD, on dialysis normally Friday, Friday, Friday at , depression, diabetes type 2, longstanding, endometrial carcinoma, status post hysterectomy, gastroesophageal reflux disease, morbid obesity, status post gastric bypass surgery, history of gastric bypass ulcer, status post repair, hyperlipidemia, hypertension, hypothyroidism, history of depression, obstructive sleep apnea, on CPAP, status post pacemaker for sick sinus syndrome, EGD, hernia repair, cholecystectomy, cardiac catheterization, gastric bypass, knee surgery. FAMILY HISTORY: Positive for diabetes. Negative for renal disease or dialysis. SOCIAL HISTORY: Never smoked. She is and lives with her spouse. She is not on any supplemental oxygen. No assistive device for walking. REVIEW OF SYSTEMS: As detailed in HPI. Positive review of system included nausea, dry heaves, poor appetite, diarrhea, weakness, dizziness, shortness of breath and requirement of oxygen and high blood pressure. Otherwise, 12 systems reviewed and is negative. PHYSICAL EXAMINATION: GENERAL: A middle-aged white female who is awake, alert, oriented x3. She is fully conversant and able to give detailed account of her medical history. VITAL SIGNS: Blood pressure is 175/75, 95% on room air, temperature 36.6, pulse rate 60, temperature 36.6, respiratory rate 18. HEENT: Mucous membranes are moist. NECK: Supple. No JVD. CHEST: Bilateral decreased breath sounds, occasional crackles. CARDIOVASCULAR: S1 and S2, regular. ABDOMEN: Soft, nontender. EXTREMITIES: Show no edema. NEUROLOGIC: Awake, alert, oriented x 3, normal speech. Moving all 4 extremities. LABORATORY TEST: Shows sodium 133, potassium 4.8, chloride 95, BUN 40, creatinine 4.92. Procalcitonin 1.78, hemoglobin 11.1, WBC count 3.95. Chest x-ray shows cardiomegaly with some pulmonary vascular congestion. COVID infection positive. ASSESSMENT AND PLAN: A 61-year-old female with longstanding diabetes and multiple other medical problems including ESRD, on dialysis Friday, Friday, Friday normally, now admitted with COVID positive infection and associated symptoms including shortness of breath, hypoxia and gastrointestinal symptoms. I have been consulted for dialysis management. 1. End-stage renal disease. Her normal dialysis days are Friday, Friday, Friday, but this week she got yesterday on a TTS schedule. She has some evidence of fluid overload/congestion. She still makes decent amount of urine, so we will give her Lasix 100 mg IV now as well as again in the afternoon. Her next dialysis is scheduled for tomorrow. At this point, she is on room air, so hopefully will be able to manage her without dialysis today. No evidence of major electrolyte problem. 2. COVID infection. She is quite scared and fearful about the COVID infection given her multiple risk factors, which includes diabetes and ESRD. Her also has significant comorbidities and she is scared of transmitting to him. We will monitor her for further stabilization of her COVID infection. Thank you very much for the consult. Job ID: [id number] [facility]
--- NOTE | 2022-03-27 17:37 | Electrocardiogram Report ---
Test Reason : Blood Pressure : / mmHG Vent. Rate : 063 BPM Atrial Rate : 063 BPM P-R Int : 364 ms QRS Dur : 090 ms QT Int : 444 ms P-R-T Axes : -02 -08 035 degrees QTc Int : 454 ms Atrial-paced rhythm with prolonged AV conduction Abnormal ECG When compared with ECG of 02-FEB-2021 14:45, Electronic atrial pacemaker has replaced Sinus rhythm Confirmed by Regis Mayfield ([id number]) on 03/27/2022 5:36:26 PM Referred By: REFERRED SELF Confirmed By:Callum Mayfield
[2022-03-27] MEDS ORDERED: CYANOCOBALAMIN 1000 MCG/ML VIAL IM SCH (17:43)
[2022-03-27] MEDS: ATORVASTATIN 40 MG TAB PO SCH (19:43)
[2022-03-27] MEDS: ASPIRIN 81 MG CHEW PO SCH (19:44)
[2022-03-27] MEDS: FLUTICASONE PROPIONATE NA SPR 16 GM BTL NAE SCH (19:44)
[2022-03-27] MEDS: GABAPENTIN 600 MG TAB PO SCH (19:44)
[2022-03-27] MEDS: MELATONIN 3 MG TAB PO SCH (20:16)
[2022-03-28] MEDS: ALBUTEROL HFA 8 GM INHALER INH SCH ×3 (00:29→12:08)
[2022-03-28] MEDS ORDERED: guaiFENesin SUGAR FREE 200 MG/10 ML UDC PO PRN (04:28)
[2022-03-28] MEDS ORDERED: BENZONATATE 100 MG CAPSULE PO PRN (06:09)
[2022-03-28] MEDS: HEPARIN SOD 5,000 UNIT/0.5 ML VIAL SQ SCH ×2 (06:32→13:38)
[2022-03-28] MEDS ORDERED: HEPARIN SOD (PORCINE) 1000 UNIT/ML IV SCH (07:00)
[2022-03-28] MEDS ORDERED: EPOETIN ALFA 4,000 UNIT/ML VIAL IV ONE (07:00)
[2022-03-28] MEDS ORDERED: SODIUM CHLORIDE 0.9% 1000ML 1,000 ML IV PRN (07:00)
[2022-03-28] MEDS ORDERED: HEPARIN SOD (PORCINE) 1000 UNIT/ML IV ONE (07:00)
[2022-03-28 08:43] LABS: BUN Creatinine Ratio 11.3 (10-20); Calcium 9.2 mg/dl (8.5-10.1); Creatinine Clr Calc Pharmacy 11.8 ml/min; Est GFR (African American) 8.4 ml/min; Est GFR (Non-African American) 7.3 ml/min; Phosphorus 5.1 mg/dl (2.5-4.9); Potassium 4.4 mmol/L (3.5-5.1)
[2022-03-28] MEDS: INSULIN ASPART PER UNIT SC SCH ×2 (08:47→12:21)
[2022-03-28] MEDS: SEVELAMER HCL 800 MG TABLET PO SCH ×2 (08:57→12:27)
[2022-03-28] MEDS: PANTOprazole 40 MG TAB PO SCH (08:58)
[2022-03-28] MEDS: SUCRALFATE 1 GM TAB PO SCH ×2 (08:58→12:27)
[2022-03-28] MEDS: LEVOTHYROXINE SODIUM 100 MCG TABLET PO SCH (08:58)
[2022-03-28] MEDS: NEPHROCAPS PO SCH (08:58)
[2022-03-28] MEDS: carvediloL 12.5 MG TAB PO SCH (08:58)
[2022-03-28] MEDS: guaiFENesin 600 MG TABCR PO SCH (08:58)
[2022-03-28] MEDS: CHOLECALCIFEROL 1,000 UNITS 25 MCG TAB PO SCH (08:58)
[2022-03-28] MEDS: CITALOPRAM 20 MG TAB PO SCH (08:58)
[2022-03-28] MEDS: FUROSEMIDE 10 MG/ML 10 ML VIAL IV SCH (08:58)
[2022-03-28] MEDS: amLODIPine BESYLATE 5 MG TAB PO SCH (08:58)
[2022-03-28] MEDS: miSOPROStoL 100 MCG TAB PO SCH ×2 (08:58→12:27)
[2022-03-28] MEDS ORDERED: LANTUS PER UNIT CHARGE SQ SCH (09:00)
--- NOTE | 2022-03-28 11:49 | Discharge Summary ---
Discharge Summary Date of Service March 28, 2022 Notes For Next Care Provider General followup PCP to ensure appropriate resolution of covid symptoms and that she is doing well overall since discharge. Medication Changes From Visit Codeine Guaifenesin syrup q6h PRN cough, disp 120mL Fluticasone propionate nasal spray, 2 sprays NA daily PRN nasal congestion Admission HPI Per Admitting Provider This is a 61 yo F with complex PMhx of DM type II, HTN, HLD, chronic diastolic heart failure, SSS s/p pacemaker insertion, MINISTERIO on CPAP, morbid obesity, margin al ulcer, gastroparesis, with recent laparoscopic revision of her gastrojejunal anastomosis with vagotomy due to the marginal ulcer on 01/28/2022, ESRD on HD MWF, last session was held today due to having symptoms consistent with COVID-19 infection/flulike symptoms and the facility not having a COVID bed for HD yesterday. Her flulike symptoms including congestion, sore throat, nausea, dry heaves, diarrhea, poor oral intake, generalized weakness and fatigue have been present since last Friday. She took a home COVID test on Friday which was positive, yesterday she was swabbed at an urgent care center which was also positive, and today on repeat COVID swab in the ER was positive. She notes being around another covid positive person earlier this week but didn't know until Friday. Pt took all her morning medications today. She feels short of breath and notes her O2 sats were at 88% this morning, typically does not require any supplemental O2 at baseline. She was able to undergo the entire dialysis treatment and 3 L were removed which is slightly more than her normal per her report. She has been abiding by fluid restriction of six 8 ounce glasses of fluid per day, and denies any worsening swelling in her legs or ankles or abdomen. Recent hospitalizations: 01/28/22 - 01/31/22 at [facility] under MIIS/Bariatric surgery for laparoscopic revision of her gastrojejunal anastomosis with vagotomy due to an anastomotic marginal ulcer , and repair of an umbilical and ventral hernia 03/19/22 saw Vascular surgery for Right arm fistulogram and possible removal of transdermal catheter, but still not using the AVF as it is not mature enough Admission Exam Per Admitting Provider Physical Exam Physical Exam: General: awake, alert, no apparent distress, obese with BMI of 37.8 Head: Normocephalic, atraumatic ENT: PERRL, EOMI, no pharyngeal exudate, mucous membranes moist Chest: + tunneled catheter in the R chest wall, Pacemaker in the left, Diminished breath sounds throughout, no wheeze or rales, on room air with sats at 98%, no adventitious breath sounds Cardiac: Regular rate and rhythm, no murmur, no JVD, normal peripheral pulses, good capillary refill Abdominal: NABS x 4 quadrants, soft, nondistended, nontender to palpation, no rebound or guarding Extremities: Normal inspection, no peripheral edema or erythema, calfs nontender to palpation Psych: Normal mood and affect Neuro: AAO x 3, strength intact bilaterally and rated 5/5, no motor deficits, speech is clear, no peripheral sensory deficits Principal Dx & Hospital Course #1 = Principal Diagnosis (1) COVID-19: She did not have hypoxia during admission, therefore, no covid specific treatments needed at this time. Cont flonase/cough syrup for supportive care. She was feeling better at time of discharge and was counseled on isolation rules. (2) HTN (hypertension): chronic, controlled, cont current therapy. (3) Diabetes mellitus, type II: Hyperglycemia during inpatient stay, controlled with insulin. Euglycemic on discharge and transitioned to home regimen without changes. (4) MINISTERIO on CPAP: - CPAP is on recall so has not been using this at home (5) SSS (sick sinus syndrome): - Pacemaker in place s/p SSS (6) ESRD (end stage renal disease) on dialysis: - Consulted nephrology for HD treatments as inpatient, typical schedule is [facility] (7) Hypothyroidism: - chronic, stable - Cont levothyroxine 100 mcg daily (8) MDD (major depressive disorder): -chronic, stable. Continue celexa (9) Anemia: chronic, improved (10) DVT prophylaxis: Heparin Full Code Dispo-to home with PCP followup. DO [facility] Hospital[facility] Discharge Exam CONSTITUTIONAL: WNWD, vitals as above, generally well-appearing, NAD EYES: normal conjunctivae, no scleral icterus ENT: external ear and nose normal, MMM NECK: trachea midline, RESPIRATORY: clear to auscultation bilaterally, no crackles, rales or wheezes, normal respiratory effort CARDIOVASCULAR: regular rate and rhythm, S1 and 2 heard without murmurs, gallops or rubs, no JVD, no peripheral edema, CHEST: inspection of chest was normal GASTROINTESTINAL: soft, nontender, ND, no guarding MUSCULOSKELETAL: strength 5/5 throughout, head is normocephalic and atraumatic SKIN: warm and dry NEUROLOGIC: CN 2-12 grossly intact, no sensory deficit, normal cognition, no rmal speech, no tremor PSYCHIATRIC: alert cooperative and oriented to person, place and time. Euthymic mood, makes good eye contact, language grossly intact, recent and remote memory grossly intact. Updated Medication List Medication Instructions Recorded Confirmed Type amlodipine 5 mg tablet 5 mg PO DAILY 03/26/22 03/26/22 History aspirin 81 mg chewable tablet 81 mg PO HS 03/26/22 03/26/22 History atorvastatin 40 mg tablet 40 mg PO HS 03/26/22 03/26/22 History carvedilol 12.5 mg tablet 12.5 mg PO AMHS 03/26/22 03/26/22 History cholecalciferol (vitamin D3) 25 25 mcg PO DAILY 03/26/22 03/26/22 History mcg (1,000 unit) tablet (Vitamin D3) citalopram 40 mg tablet 20 mg PO DAILY 03/26/22 03/26/22 History cyanocobalamin (vitamin B-12) 1,000 mcg IM WE 03/26/22 03/26/22 History 1,000 mcg/mL injection solution docusate sodium 100 mg capsule 100 mg PO BID PRN Constipation 03/26/22 03/26/22 History famotidine 20 mg tablet 20 mg PO BID PRN Acid Reflux 03/26/22 03/26/22 History gabapentin 600 mg tablet 600 mg PO HS 03/26/22 03/26/22 History insulin aspart U-100 100 unit/mL 0 unit subcut DIRECTED 03/26/22 03/26/22 History (3 mL) subcutaneous pen (Novolog Flexpen U-100 Insulin aspart) insulin glargine 100 unit/mL (3 14 unit subcut QAM 03/26/22 03/26/22 History mL) subcutaneous pen (Lantus Solostar U-100 Insulin) ketoconazole 2 % shampoo 1 applic topical DIRECTED PRN .. 03/26/22 03/26/22 History levothyroxine 100 mcg tablet 100 mcg PO DAILY 03/26/22 03/26/22 History lidocaine-prilocaine 2.5 %-2.5 % 1 applic topical DIRECTED 03/26/22 03/26/22 History topical cream melatonin 10 mg tablet 10 mg PO HS 03/26/22 03/26/22 History misoprostol 100 mcg tablet 100 mcg PO QID 03/26/22 03/26/22 History omeprazole 40 mg capsule,delayed 40 mg PO BID 03/26/22 03/26/22 History release polyethylene glycol 3350 17 gram 17 g PO DAILY PRN Constipation 03/26/22 03/26/22 History oral powder packet sevelamer carbonate 800 mg tablet 1,600 mg PO .TIDM & SNACKS 03/26/22 03/26/22 History sucralfate 1 gram tablet 1 g PO ACHS 03/26/22 03/26/22 History vit B complx, C-iron 8 mg-folic 1 tab PO QAM 03/26/22 03/26/22 History acid 800 mcg-D3 1,000 unit-zinc tablet (ProRenal) codeine 10 mg-guaifenesin 100 mg/5 5 ml PO Q6H PRN severe cough #120 03/28/22 Rx mL oral liquid mL fluticasone propionate 50 2 spray ABHISHEK HS #16 grams 03/28/22 Rx mcg/actuation nasal spray,suspension Hospital Stay Data Consultations 03/26/22 16:28 ED Decision to Admit Stat 03/26/22 16:54 Consult Nephrology Routine Pending Results Patient Have Any Pending Studies at Discharge: No Discharge Instructions Given to Patient (Per Discharging Provider) Please take all medications as instructed on discharge list below. You are being given Flonase to help with post-nasal drip and nasal congestion. Please stop using this once those symptoms have improved. You are also being given Robitussin cough syrup with codeine which will help with cough symptoms. Please avoid alcohol and no driving on this medication as it makes you drowsy. Please ensure you stay on home isolation for at least 10 days since your symptom onset to avoid public spread of the infection. After this time, please observe current public health guidance regarding masking and social distancing. Please consider vaccination for covid-19 and influenza if you have not already done so. It was a pleasure taking care of you! Please call if you have any questions or problems. You can reach a [facility] hospitalist on duty at [facility] 24 hours a day by calling [phone]. Take care of yourself. Maria D Baird, [facility] Hospitalist Total Time Total Time Spent Total Time Spent (In Minutes): 60
== END 2022-03-28 17:43 | disposition home or self-care (01) | DRG 177 ==
LOC: ED 11:59 → 2N 16:54

== ENCOUNTER 2022-11-06 13:56 | Inpatient (IN) ==
--- NOTE | 2022-11-06 15:03 | Emergency Department Note ---
Impression & Plan Bilateral leg weakness, Anemia, ESRD (end stage renal disease) on dialysis, Ambulatory dysfunction, Back pain ED Provider Note NAME: TAMARA EAGLE AGE: 61 SEX: F : 1960 ARRIVES VIA: Walk-In INFORMANT: Patient, ED PROVIDER(S): Jayro Cates MD CHIEF COMPLAINT: Tremors, falls, difficulty with walking MEDICAL DECISION MAKING: Patient presents with the above symptoms and states that she developed the symptoms last evening and felt as though she was having some tremors in all 4 extremities including body. IV was established blood work was obtained and a CT of the head and lumbar spine were performed in addition to left hip x-ray. Patient's blood work shows a normal white count hemoglobin 9.9 relatively chronic and stable and likely secondary to the patient's history of chronic kidney disease. Platelet count is unremarkable. Patient's creatinine 6.3 today potassium 5.4 but the patient did miss dialysis today. Patient's plain x-ray does not show any evidence of obvious fracture dislocation left hip. No obvious fractures in the lumbar spine and no ICH noted on CT head. Did attempt an ambulatory trial the patient was unable to do so. I did speak with the on-call hospitalist service given the patient's inability to go home safely given her ambulatory dysfunction. Prior /Outside records reviewed: I did review the patient's discharge summary from Dr. Baird in March 2022. Known history of type 2 diabetes hypertension hyperlipidemia chronic diastolic heart failure pacemaker MINISTERIO gastroparesis. Differential diagnosis: Infection, dehydration, metabolic abnormality, hypo/hyperglycemia, electrolyte disturbance, anemia, hypoxia, cardiac sources, intracerebral event, toxicologic, neurologic, as well as other pathologies. Diagnostics, as interpreted by me: ECG:The patient has a sinus with first-degree AV block with prolonged AL, normal QRS and normal axis no ST elevations. Cardiac monitoring: An order was placed for continuous cardiac monitoring. The monitor shows a rate of 77 with sinus rhythm. Patient was placed on pulse oximetry Medical decision rules: None Imaging studies: See below I informally reviewed the patient's hip x-ray which shows no obvious evidence of fracture or dislocation. HPI: Patient presents due to concern for tremors and falls. The patient states that she was having significant difficulty with ambulating yesterday. Specifically she states that she had difficulty with getting into a car and had a fall. The patient does complain of some mild left hip and back pain. The patient does feel as though that her legs seem to be more weak and has noticed tremors in her bilateral upper and lower extremities. No prior history of tremors before the patient has not followed with neurology or taken anything for tremors in the past. Patient is a dialysis patient did miss her dialysis today as she was unable to get to her appointment. Patient denies any chest pains or shortness of breath. Patient denies any head or neck pain. No prior history of stroke or mini stroke. Patient states that she took her normal medications. Given her ambulatory dysfunction she presented here for further evaluation treatment. The patient denies any prior history of Parkinson's or family history of Parkinson's. PAST MEDICAL HISTORY: See Below PAST SURGICAL HISTORY: See Below SOCIAL HISTORY: See Below HOME MEDICATIONS: See Below ALLERGIES: See Below VITALS: See Below PHYSICAL EXAMINATION: GENERAL: NAD, wearing a mask, non-toxic. EYE EXAM: Normal conjunctiva. PERRL, no anisocoria and EOM's grossly intact w/o pain. NECK: Supple, no nuchal rigidity, no adenopathy, non-tender. No signs of meningismus. FROM of the neck with good chin to chest and neck extension. No stridor. LUNGS: Clear to auscultation. Normal chest wall mechanics. HEART: NSR, no MRG. ABDOMEN: Abdomen soft, non-tender, no masses, no rebound or guarding. BACK: No CVA TTP. Mild midline lumbar TTP without obvious step-offs. SKIN: No rashes and no bruising. UPPER EXTREMITIES: Upper extremities are grossly normal. Left upper extremity intention tremor noted. Good nruftg-ic-wodg bilaterally. Right upper extremity AV fistula noted near the wrist with good palpable thrill. LOWER EXTREMITIES: Mild discomfort to the left hip and femur without obvious deformity, no leg length discrepancy, normal sensation bilateral lower extremities no saddle anesthesia. Bilateral lower extremity tremor noted NEURO EXAM: A&O x3, cranial nerves II-XII grossly intact, normal speech, moves all 4 extremities but bilateral lower extremity weakness noted. Able to complete heel pearl but with mild difficulty secondary to tremor and weakness. Past Med/Surg History Medical History Chronic diastolic CHF (congestive heart failure) Depression Diabetes mellitus, type II DVT prophylaxis Endometrial carcinoma (02/23/13) "S/P hysterectomy " ESRD (end stage renal disease) on dialysis m - w- [place] ESRD (end stage renal disease) on dialysis GERD (gastroesophageal reflux disease) History of anesthesia reaction when had port inserted needed more medication and could feel everything History of melanoma HLD (hyperlipidemia) HTN (hypertension) Hypothyroidism MDD (major depressive disorder) Obesity MINISTERIO on CPAP Pacemaker SSS [employer] follows with dr rosalie MENDEZ (sick sinus syndrome) Pt admitted for elective pacemaker due to SSS. She underwent procedure without any complications. Monitored over night and discharged home. Surgical History H/O esophagogastroduodenoscopy H/O hernia repair History of cholecystectomy Hx of cardiac cath "2012, negative for CAD " Hx of gastric bypass S/P dialysis catheter insertion right side of chest S/P knee surgery S/P [place]-BSO Family History Other Colonic polyp GERD (gastroesophageal reflux disease) Social History Smoking Status: Never smoker Second Hand Exposure: No; Hx Alcohol Use: No Hx Substance Use: No Preferred Language: Hebrew Communication Ability: Effective Staff Occupational Therapist Required: No Beliefs That Will Affect Care: None marital status: Current Living Situation: Spouse Current Living Situation Comment: lives with Feels Safe at Home: Yes Safety Concerns: Feels Safe At This Time Assistive Devices: Walker Allergies Allergies Allergy/AdvReac Type Severity Reaction Status Date / Time CHIDI Inhibitors AdvReac Mild COUGH Verified 11/06/22 18:46 Home Meds Home Medications Medication Instructions Recorded Confirmed amlodipine 5 mg tablet 5 mg PO PM 03/26/22 11/06/22 aspirin 81 mg chewable tablet 81 mg PO HS 03/26/22 11/06/22 atorvastatin 40 mg tablet 40 mg PO HS 03/26/22 11/06/22 carvedilol 12.5 mg tablet 12.5 mg PO AMHS 03/26/22 11/06/22 cholecalciferol (vitamin D3) 25 25 mcg PO PM 03/26/22 11/06/22 mcg (1,000 unit) tablet (Vitamin D3) citalopram 40 mg tablet 20 mg PO DAILY 03/26/22 11/06/22 cyanocobalamin (vitamin B-12) 1,000 mcg IM Q90D 03/26/22 11/06/22 1,000 mcg/mL injection solution famotidine 20 mg tablet See Rx Instructions .Route 03/26/22 11/06/22 .COMPLEX PRN Acid Reflux gabapentin 600 mg tablet 600 mg PO HS 03/26/22 11/06/22 insulin aspart U-100 100 unit/mL 0 - 25 unit subcut DIRECTED 03/26/22 11/06/22 (3 mL) subcutaneous pen (Novolog FlexPen U-100 Insulin aspart) insulin glargine 100 unit/mL (3 20 unit subcut QAM 03/26/22 11/06/22 mL) subcutaneous pen (Lantus Solostar U-100 Insulin) levothyroxine 100 mcg tablet 100 mcg PO DAILY 03/26/22 11/06/22 melatonin 10 mg tablet 10 mg PO HS 03/26/22 11/06/22 omeprazole 40 mg capsule,delayed 40 mg PO PM 03/26/22 11/06/22 release polyethylene glycol 3350 17 gram 17 g PO DAILY PRN Constipation 03/26/22 11/06/22 oral powder packet vit B complx, C-iron 8 mg-folic 1 tab PO PM 03/26/22 11/06/22 acid 800 mcg-D3 1,000 unit-zinc tablet (ProRenal) calcium acetate 667 mg tablet 2,001 mg PO TIDM 11/06/22 11/06/22 fluticasone propionate 50 2 spray intranasal HS 11/06/22 11/06/22 mcg/actuation nasal spray,suspension (Flonase Allergy Relief) hydralazine 100 mg tablet 100 mg PO TID 11/06/22 11/06/22 torsemide 100 mg tablet 100 mg PO DAILY 11/06/22 11/06/22 Results & Data (ED) Vital Signs Vital Signs - 24 hr 11/06/22 13:58 11/06/22 15:42 11/06/22 15:47 Temperature 36.7 C Temperature Source Temporal Artery Scan Pulse Rate 75 74 66 Pulse Rate from SpO2 Sensor 64 Respiratory Rate 18 18 Respiratory Effort / Characteristics Non-Labored Spontaneous Respiratory Depth Normal Respiratory Pattern Regular Blood Pressure 148/75 H 151/67 H Blood Pressure Mean 99 95 Pulse Oximetry 96 95 Oxygen Delivery Method Room Air Sepsis Recent Fever Within 48 Hours No Sepsis New/Unexplained Change in Mental Status No Sepsis Action Taken by Nursing No Action Required 11/06/22 16:00 11/06/22 16:00 Temperature Temperature Source Pulse Rate 72 Pulse Rate from SpO2 Sensor 74 Respiratory Rate 19 Respiratory Effort / Characteristics Respiratory Depth Respiratory Pattern Blood Pressure 152/59 H Blood Pressure Mean 90 Pulse Oximetry 95 Oxygen Delivery Method Sepsis Recent Fever Within 48 Hours Sepsis New/Unexplained Change in Mental Status Sepsis Action Taken by Care Home Medications Current Medication List: was personally reviewed by me Laboratory Data Attestation: I reviewed the patient's lab results. 11/06/22 15:35 11/06/22 15:35 Lab Results 11/06/22 11/06/22 11/06/22 Range/Units 15:34 15:34 15:35 WBC 10.42 (4.8-10.8) K/ul RBC 3.27 L (4.20-5.40) M/uL Hgb 9.9 L (12.0-16.0) g/dl Hct 31.5 L (37.0-47.0) % MCV 96.3 (80.0-100.0) fL MCH 30.3 (25.0-34.0) pg MCHC 31.4 L (32.0-36.0) g/dL RDW Std Deviation 50.7 H (36.4-46.3) fL RDW Coeff of Leatha 14.3 (11.5-14.5) % Plt Count 190 (130-400) K/uL MPV 10.3 (9.4-12.4) fL Immature Gran % (Auto) 0.3 % Neut % (Auto) 67.4 % Lymph % (Auto) 22.3 % [place] % (Auto) 7.3 % Eos % (Auto) 1.8 % Baso % (Auto) 0.9 % Neut # (Auto) 7.03 H (1.40-6.50) K/uL Lymph # (Auto) 2.32 (1.2-3.4) K/uL [place] # (Auto) 0.76 H (0.11-0.59) K/uL Eos # (Auto) 0.19 (0-0.50) K/uL Baso # (Auto) 0.09 (0-0.2) K/uL Immature Gran # (Auto) 0.03 (0.01-0.20) K/uL PT 10.7 (9.0-12.0) Seconds INR 1.0 (0.9-1.1) APTT 26.4 (21.0-31.0) Seconds PTT Ratio 1.0 Sodium (136-145) mmol/L Potassium (3.5-5.1) mmol/L Chloride (98-107) mmol/L Carbon Dioxide (21-32) mmol/L Anion Gap (3-11) BUN (6-23) mg/dl Creatinine (0.6-1.2) mg/dl Est Cr Clr Drug Dosing Est GFR ( Amer) ml/min Est GFR (Non-Af Amer) ml/min BUN/Creatinine Ratio (10-20) Glucose (70-99(Fasting)) mg/dl Calcium (8.6-10.3) mg/dl Total Bilirubin (0.2-1.0) mg/dl AST (13-39) U/L ALT (7-52) U/L Alkaline Phosphatase (34-104) U/L Ammonia Cancelled Total Protein (6.0-8.3) gm/dl Albumin (3.4-5.0) gm/dl Globulin (2.5-4.0) gm/dl Albumin/Globulin Ratio (0.9-2) SARS-CoV-2, RNA, NAAT (NEGATIVE) 11/06/22 11/06/22 11/06/22 Range/Units 15:35 16:11 17:25 WBC (4.8-10.8) K/ul RBC (4.20-5.40) M/uL Hgb (12.0-16.0) g/dl Hct (37.0-47.0) % MCV (80.0-100.0) fL MCH (25.0-34.0) pg MCHC (32.0-36.0) g/dL RDW Std Deviation (36.4-46.3) fL RDW Coeff of Leatha (11.5-14.5) % Plt Count (130-400) K/uL MPV (9.4-12.4) fL Immature Gran % (Auto) % Neut % (Auto) % Lymph % (Auto) % [place] % (Auto) % Eos % (Auto) % Baso % (Auto) % Neut # (Auto) (1.40-6.50) K/uL Lymph # (Auto) (1.2-3.4) K/uL [place] # (Auto) (0.11-0.59) K/uL Eos # (Auto) (0-0.50) K/uL Baso # (Auto) (0-0.2) K/uL Immature Gran # (Auto) (0.01-0.20) K/uL PT (9.0-12.0) Seconds INR (0.9-1.1) APTT (21.0-31.0) Seconds PTT Ratio Sodium 132 L (136-145) mmol/L Potassium 5.4 H (3.5-5.1) mmol/L Chloride 96 L (98-107) mmol/L Carbon Dioxide 24 (21-32) mmol/L Anion Gap 12 H (3-11) BUN 62 H (6-23) mg/dl Creatinine 6.35 H* (0.6-1.2) mg/dl Est Cr Clr Drug Dosing Not Reportable Est GFR ( Amer) 7.4 ml/min Est GFR (Non-Af Amer) 6.4 ml/min BUN/Creatinine Ratio 9.8 L (10-20) Glucose 238 H (70-99(Fasting)) mg/dl Calcium 9.1 (8.6-10.3) mg/dl Total Bilirubin 0.4 (0.2-1.0) mg/dl AST 30 (13-39) U/L ALT 45 (7-52) U/L Alkaline Phosphatase 122 H (34-104) U/L Ammonia 23.0 Total Protein 6.3 (6.0-8.3) gm/dl Albumin 3.5 (3.4-5.0) gm/dl Globulin 2.8 (2.5-4.0) gm/dl Albumin/Globulin Ratio 1.3 (0.9-2) SARS-CoV-2, RNA, NAAT NEGATIVE (NEGATIVE) Administered Medications Acetaminophen (Acetaminophen 325 Mg Tab) 650 mg PO Q4H PRN PRN Reason: Pain or Fever Stop: 12/06/22 21:14 Last Admin: 11/06/22 23:08 Dose: 650 mg Documented By: JOSE J Amlodipine Besylate (Amlodipine Besylate 5 Mg Tab) 5 mg PO PM PAULA Stop: 12/06/22 21:14 Last Admin: 11/07/22 20:44 Dose: 5 mg Documented By: JOSE J Admin: 11/06/22 23:10 Dose: 5 mg Documented By: JOSE J Aspirin (Aspirin 81 Mg Chew) 81 mg PO HS PAULA Stop: 12/06/22 21:14 Last Admin: 11/07/22 20:45 Dose: 81 mg Documented By: JOSE J Admin: 11/06/22 23:09 Dose: 81 mg Documented By: JOSE J Atorvastatin Calcium (Atorvastatin 40 Mg Tab) 40 mg PO HS PAULA Stop: 12/06/22 21:14 Last Admin: 11/07/22 20:43 Dose: 40 mg Documented By: JOSE J Admin: 11/06/22 23:12 Dose: 40 mg Documented By: JOSE J Calcium Acetate (Calcium Acetate 667 Mg Cap/Tab) 2,001 mg PO TIDM PAULA Stop: 12/07/22 07:59 Last Admin: 11/08/22 15:17 Dose: 2,001 mg Documented By: [facility] Admin: 11/08/22 08:25 Dose: 2,001 mg Documented By: [facility] Admin: 11/07/22 17:01 Dose: 2,001 mg Documented By: [facility] Admin: 11/07/22 14:04 Dose: 2,001 mg Documented By: [facility] Admin: 11/07/22 08:57 Dose: 2,001 mg Documented By: CHRISTIANO Carvedilol (Carvedilol 12.5 Mg Tab) 12.5 mg PO [facility] PAULA Stop: 12/06/22 21:14 Last Admin: 11/08/22 08:26 Dose: 12.5 mg Documented By: [facility] Admin: 11/07/22 20:43 Dose: 12.5 mg Documented By: [facility] Admin: 11/07/22 08:57 Dose: 12.5 mg Documented By: [facility] Admin: 11/06/22 23:10 Dose: 12.5 mg Documented By: JOSE J Citalopram Hydrobromide (Citalopram 20 Mg Tab) 20 mg PO DAILY PAULA Stop: 12/07/22 08:59 Last Admin: 11/08/22 08:25 Dose: 20 mg Documented By: [facility] Admin: 11/07/22 08:58 Dose: 20 mg Documented By: CHRISTIANO Gabapentin (Gabapentin 300 Mg Cap) 300 mg PO HS PAULA Stop: 12/06/22 21:14 Last Admin: 11/07/22 20:43 Dose: 300 mg Documented By: JOSE J Admin: 11/06/22 23:14 Dose: 300 mg Documented By: JOSE J Heparin Sodium (Porcine) (Heparin Sod 5,000 Unit/0.5 Ml Vial) 5,000 units SQ Q8 PAULA Stop: 12/06/22 21:59 Last Admin: 11/08/22 15:18 Dose: 5,000 units Documented By: Admin: 11/08/22 05:34 Dose: 5,000 units Documented By: JOSE J Admin: 11/07/22 20:42 Dose: 5,000 units Documented By: JOSE J Admin: 11/07/22 14:56 Dose: 5,000 units Documented By: Admin: 11/07/22 06:06 Dose: 5,000 units Documented By: JOSE J Admin: 11/06/22 23:13 Dose: 5,000 units Documented By: JOSE J Hydralazine HCl (Hydralazine Tab 50 Mg Tab) 100 mg PO TID PAULA Stop: 12/06/22 22:59 Last Admin: 11/08/22 15:21 Dose: 100 mg Documented By: Admin: 11/08/22 08:26 Dose: 100 mg Documented By: Admin: 11/07/22 20:46 Dose: 100 mg Documented By: JOSE J Admin: 11/07/22 14:56 Dose: 100 mg Documented By: Admin: 11/07/22 08:58 Dose: 100 mg Documented By: Admin: 11/06/22 23:11 Dose: 100 mg Documented By: JOSE J Insulin Aspart (Insulin Aspart Per Unit Charge) 0 units SC ACHS PAULA Stop: 12/06/22 22:34 Last Admin: 11/08/22 08:23 Dose: 3 units Documented By: CHRISTIANO Co-signed By: ANNA Admin: 11/07/22 20:34 Dose: Not Given Documented By: JOSE J Admin: 11/07/22 16:58 Dose: 11 units Documented By: CHRISTIANO Co-signed By: JORGE ALBERTO Admin: 11/07/22 15:04 Dose: Not Given Documented By: Admin: 11/07/22 09:05 Dose: 5 units Documented By: CHRISTIANO Co-signed By: ANNA Admin: 11/06/22 23:08 Dose: 9 units Documented By: JOSE J Co-signed By: MAGUE Insulin Glargine (Lantus Per Unit Charge) 20 units SQ DAILY PAULA Stop: 12/07/22 08:59 Last Admin: 11/08/22 08:24 Dose: 20 units Documented By: CHRISTIANO Co-signed By: ANNA Admin: 11/07/22 09:05 Dose: 20 units Documented By: CHRISTIANO Co-signed By: ANNA Levothyroxine Sodium (Levothyroxine Sodium 100 Mcg Tablet) 100 mcg PO DAILYBB PAULA Stop: 12/07/22 06:29 Last Admin: 11/08/22 05:34 Dose: 100 mcg Documented By: JOSE J Admin: 11/07/22 06:06 Dose: 100 mcg Documented By: JOSE J Melatonin (Melatonin 3 Mg Tab) 9 mg PO HS PAULA Stop: 12/06/22 21:59 Last Admin: 11/07/22 20:44 Dose: 9 mg Documented By: JOSE J Admin: 11/06/22 23:10 Dose: 9 mg Documented By: JOSE J Pantoprazole Sodium (Pantoprazole 40 Mg Tab) 40 mg PO PM PAULA Stop: 12/06/22 21:14 Last Admin: 11/07/22 20:45 Dose: 40 mg Documented By: JOSE J Admin: 11/06/22 23:12 Dose: 40 mg Documented By: JOSE J Torsemide (Torsemide 100 Mg Tab) 100 mg PO DAILY PAULA Stop: 12/07/22 08:59 Last Admin: 11/08/22 08:25 Dose: 100 mg Documented By: Admin: 11/07/22 08:58 Dose: 100 mg Documented By: CHRISTIANO Vitamin B Complex/Folic Acid (Nephrocaps) 1 cap PO PM PAULA Stop: 12/06/22 21:14 Last Admin: 11/07/22 20:44 Dose: 1 cap Documented By: JOSE J Admin: 11/06/22 23:14 Dose: 1 cap Documented By: JOSE J Vitamin D (Cholecalciferol 1,000 Units 25 Mcg Tab) 1,000 units PO PM PAULA Stop: 12/06/22 21:14 Last Admin: 11/07/22 20:42 Dose: 1,000 units Documented By: JOSE J Admin: 11/06/22 23:12 Dose: 1,000 units Documented By: JOSE J Discontinued Medications Epoetin Jordan (Epoetin Jordan 10,000 Units/Ml Vial) 10,000 units IV TODAY@0900 [facility] Stop: 11/07/22 23:59 Last Admin: 11/07/22 12:46 Dose: 10,000 units Documented By: CC Epoetin Jordan (Epoetin Jordan 10,000 Units/Ml Vial) 10,000 units IV ONE ONE Stop: 11/08/22 08:37 Last Admin: 11/08/22 11:35 Dose: 10,000 units Documented By: JESUS Heparin Sodium (Porcine) (Heparin Sod (Porcine) 1000 Unit/Ml) 1,000 units IV TODAY@0900 [facility] Stop: 11/07/22 23:59 Last Admin: 11/07/22 11:14 Dose: Not Given Documented By: CC Heparin Sodium (Porcine) (Heparin Sod (Porcine) 1000 Unit/Ml) 400 units IV TODAY@0900,1000,1100 [facility] Stop: 11/07/22 23:59 Last Admin: 11/07/22 11:15 Dose: Not Given Documented By: Admin: 11/07/22 11:15 Dose: Not Given Documented By: Admin: 11/07/22 11:15 Dose: Not Given Documented By: CC Heparin Sodium (Porcine) (Heparin Sod (Porcine) 1000 Unit/Ml) 1,000 units IV ONE ONE Stop: 11/08/22 08:37 Last Admin: 11/08/22 11:33 Dose: Not Given Documented By: JESUS Heparin Sodium (Porcine) (Heparin Sod (Porcine) 1000 Unit/Ml) 400 units IV Q1H [facility] Stop: 11/08/22 10:46 Last Admin: 11/08/22 15:17 Dose: Not Given Documented By: [facility] Admin: 11/08/22 15:16 Dose: Not Given Documented By: [facility] Admin: 11/08/22 11:33 Dose: Not Given Documented By: JESUS Hydralazine HCl (Hydralazine Tab 50 Mg Tab) 100 mg PO NOW STA Stop: 11/06/22 17:50 Last Admin: 11/06/22 18:29 Dose: 100 mg Documented By: AM Insulin Aspart (Insulin Aspart Per Unit Charge) 0 units SC ACHS [facility] Stop: 12/06/22 21:14 Last Admin: 11/06/22 23:18 Dose: Not Given Documented By: JOSE J Insulin Glargine (Lantus Per Unit Charge) 5 units SQ NOW STA Stop: 11/06/22 22:34 Last Admin: 11/06/22 23:08 Dose: 5 units Documented By: MAC Co-signed By: Imaging Data Radiologist's Impression: Head CT 11/06/22 15:[address] DOSE: HISTORY: tremors, leg weakness TECHNIQUE: Multiaxial CT images of the head were performed without the use of intravenous contrast. Automated exposure control was utilized for this study. A dose lowering technique was utilized adhering to the principles of ALARA. Comparison: Head CT 01/18/2021. Findings: Stable polyp/retention cyst within the left sphenoid sinus. The mastoid air cells are clear. The calvarium and skull base are intact. The ventricles and sulci are within normal limits. There is no mass, hematoma, midline shift, or acute infarct. Impression: No significant change compared to the prior study. No acute intracranial abnormality. ACT 112: Negative or not required by law. Electronically signed by: Kendell Toth M.D. 11/06/2022 4:[address] 11/06/22 15:26 CT lumbar spine wo con CLINICAL HISTORY: leg pain/weakness TECHNIQUE: Multidetector row helical CT of the lumbar spine was performed without administration of intravenous contrast. Coronal and sagittal reformations were obtained. Automated dose lowering techniques and/or adjustment according to patient size were utilized for this exam. CT DOSE: 1642.93 mGy.cm Comparison: Comparison is made to CT lumbar spine 07/15/2012 FINDINGS: For counting purposes, the last complete intervertebral disc space is considered L5-S1. No acute fractures are identified. Degenerative changes are noted in the visualized spine. Vertebral body alignment is within normal limits. Surrounding soft tissues are unremarkable. IMPRESSION: Degenerative changes are seen without evidence of acute fractures. ACT 112: Negative or not required by law. Electronically signed by: Severino David M.D. 11/06/2022 4:[address] 11/06/22 15:[address] DOSE: HISTORY: tremors, leg weakness TECHNIQUE: Multiaxial CT images of the head were performed without the use of intravenous contrast. Automated exposure control was utilized for this study. A dose lowering technique was utilized adhering to the principles of ALARA. Comparison: Head CT 01/18/2021. Findings: Stable polyp/retention cyst within the left sphenoid sinus. The mastoid air cells are clear. The calvarium and skull base are intact. The ventricles and sulci are within normal limits. There is no mass, hematoma, midline shift, or acute infarct. Impression: No significant change compared to the prior study. No acute intracranial abnormality. ACT 112: Negative or not required by law. Electronically signed by: Kendell Toth M.D. 11/06/2022 4:39 PM Hip/Pelvis X-Ray 11/06/22 15:26 XR hip LT 2V w pelvis CLINICAL HISTORY: pain post fall TECHNIQUE: 2 views of the left hip and single frontal view of the pelvis were obtained. Comparison: None available at the time of this dictation. FINDINGS: There is no evidence of an acute fracture. Degenerative changes are seen in the hip joint. Vascular calcifications are noted. IMPRESSION: No evidence of acute osseous injury. ACT 112: Negative or not required by law. Electronically signed by: Severino David M.D. 11/06/2022 4:[address] 11/06/22 15:26 CT lumbar spine wo con CLINICAL HISTORY: leg pain/weakness TECHNIQUE: Multidetector row helical CT of the lumbar spine was performed without administration of intravenous contrast. Coronal and sagittal reformations were obtained. Automated dose lowering techniques and/or adjustment according to patient size were utilized for this exam. CT DOSE: 1642.93 mGy.cm Comparison: Comparison is made to CT lumbar spine 07/15/2012 FINDINGS: For counting purposes, the last complete intervertebral disc space is considered L5-S1. No acute fractures are identified. Degenerative changes are noted in the visualized spine. Vertebral body alignment is within normal limits. Surrounding soft tissues are unremarkable. IMPRESSION: Degenerative changes are seen without evidence of acute fractures. ACT 112: Negative or not required by law. Electronically signed by: Severino David M.D. 11/06/2022 4:37 PM Discharge Plan Visit Data Chief Complaint: Fall Stated Complaint: TREMORS. FALLING DOWN ED Provider: Jayro Cates Discharge Problem: Bilateral leg weakness, Anemia, ESRD (end stage renal disease) on dialysis, Ambulatory dysfunction, Back pain Patient Disposition: Admitted As Inpatient Discharge Instructions Interventions: ED Discharge Assessment Last Done: 11/06/22 20:50 Anemia Qualifiers: Anemia type: due to chronic kidney disease Back pain Qualifiers: Back pain location: low back pain Chronicity: acute Back pain laterality: midline Sciatica presence: without sciatica Qualified Code(s): M54.50 - Low back pain, unspecified
[2022-11-06 15:52] LABS: Basophils # (auto) 0.09 K/uL (0-0.2); Basophils % (auto) 0.9 %; Eosinophils # (auto) 0.19 K/uL (0-0.50); Eosinophils % (auto) 1.8 %; Hematocrit (blood only) 31.5 % (37.0-47.0); Hemoglobin 9.9 g/dl (12.0-16.0); Immature Granulocytes # (auto) 0.03 K/uL (0.01-0.20); Immature Granulocytes % (auto) 0.3 %; Lymphocytes # (auto) 2.32 K/uL (1.2-3.4); Lymphocytes % (auto) 22.3 %; Mean Corpuscular Hemoglobin 30.3 pg (25.0-34.0); Mean Corpuscular Hgb Conc 31.4 g/dL (32.0-36.0); Mean Corpuscular Volume 96.3 fL (80.0-100.0); Mean Platelet Volume 10.3 fL (9.4-12.4); Monocytes # (auto) 0.76 K/uL (0.11-0.59); Monocytes % (auto) 7.3 %; Neutrophils # (auto) 7.03 K/uL (1.40-6.50); Neutrophils % (auto) 67.4 %; Platelet Count 190 K/uL (130-400); RDW Coefficient of Variation 14.3 % (11.5-14.5); RDW Standard Deviation 50.7 fL (36.4-46.3); Red Blood Count 3.27 M/uL (4.20-5.40); White Blood Count 10.42 K/ul (4.8-10.8)
[2022-11-06 16:15] LABS: Alanine Aminotransferase 45 U/L (7-52); Albumin Globulin Ratio 1.3 (0.9-2); Albumin Level 3.5 gm/dl (3.4-5.0); Alkaline Phosphatase 122 U/L (34-104); Anion Gap 12 (3-11); Aspartate Aminotransferase 30 U/L (13-39); BUN Creatinine Ratio 9.8 (10-20); Bilirubin,Total 0.4 mg/dl (0.2-1.0); Blood Urea Nitrogen 62 mg/dl (6-23); Calcium 9.1 mg/dl (8.6-10.3); Carbon Dioxide 24 mmol/L (21-32); Chloride 96 mmol/L (98-107); Est GFR (African American) 7.4 ml/min; Est GFR (Non-African American) 6.4 ml/min; Globulin 2.8 gm/dl (2.5-4.0); Glucose 238 mg/dl (70-99(Fasting)); Potassium 5.4 mmol/L (3.5-5.1); Sodium 132 mmol/L (136-145); Total Protein 6.3 gm/dl (6.0-8.3)
[2022-11-06 16:17] LABS: Partial Thromboplastin Time 26.4 Seconds (21.0-31.0); Prothrombin Time 10.7 Seconds (9.0-12.0)
--- NOTE | 2022-11-06 16:40 | CT Scan Report ---
HEAD CT NONCONTRAST CT DOSE: HISTORY: tremors, leg weakness TECHNIQUE: Multiaxial CT images of the head were performed without the use of intravenous contrast. A utomated exposure control was utilized for this study. A dose lowering technique was utilized adheri ng to the principles of ALARA. Comparison: Head CT 01/18/2021. Findings: Stable polyp/retention cyst within the left sphenoid sinus. The mastoid air cells are clear . The calvarium and skull base are intact. The ventricles and sulci are within normal limits. There i s no mass, hematoma, midline shift, or acute infarct. Impression: No significant change compared to the prior study. No acute intracranial abnormality. ACT 112: Negative or not required by law. Electronically signed by: Kendell Toth M.D. 11/06/2022 4:39 PM
--- NOTE | 2022-11-06 16:40 | CT Scan Report ---
CT lumbar spine wo con CLINICAL HISTORY: leg pain/weakness TECHNIQUE: Multidetector row helical CT of the lumbar spine was performed without administration of i ntravenous contrast. Coronal and sagittal reformations were obtained. Automated dose lowering techniq ues and/or adjustment according to patient size were utilized for this exam. CT DOSE: 1642.93 mGy.cm Comparison: Comparison is made to CT lumbar spine 07/15/2012 FINDINGS: For counting purposes, the last complete intervertebral disc space is considered L5-S1. No acute fractures are identified. Degenerative changes are noted in the visualized spine. Vertebral body alignment is within normal limits. Surrounding soft tissues are unremarkable. IMPRESSION: Degenerative changes are seen without evidence of acute fractures. ACT 112: Negative or not required by law. Electronically signed by: Severino David M.D. 11/06/2022 4:37 PM
--- NOTE | 2022-11-06 16:58 | XRay Report ---
XR hip LT 2V w pelvis CLINICAL HISTORY: pain post fall TECHNIQUE: 2 views of the left hip and single frontal view of the pelvis were obtained. Comparison: None available at the time of this dictation. FINDINGS: There is no evidence of an acute fracture. Degenerative changes are seen in the hip joint. Vascular c alcifications are noted. IMPRESSION: No evidence of acute osseous injury. ACT 112: Negative or not required by law. Electronically signed by: Severino David M.D. 11/06/2022 4:57 PM
--- NOTE | 2022-11-06 17:24 | History & Physical Report ---
Date of Service November 06, 2022 Assessment & Plan (1) Ambulatory dysfunction: Plan: Patient is 61-year-old female with PMH paroxysmal atrial tachycardia, sick sinus syndrome s/p pacemaker, chronic diastolic heart failure, HTN, dyslipidemia, DM II, ESRD on HD, chronic anemia, MINISTERIO, obesity s/p gastric bypass, hypothyroidism, depression and others listed below presented to ER with c/o generalized weakness and ambulatory dysfunction x1 day. Negative SARS-CoV-2. No leukocytosis CT head: No significant change compared to the prior study. No acute intracranial abnormality. Lumbar spine CT: Degenerative changes are seen without evidence of acute fractures. Hip/pelvis x-ray: No evidence of acute osseous injury. UA pending Fall precautions [facility] PT/OT eval CBC, BMP in a.m. (2) Tremor: Plan: Reports intermittent bilateral upper and lower extremity and body tremors with ambulation. Is an awake and alert with these tremors No tremors noted on exam Monitor (3) ESRD (end stage renal disease) on dialysis: Plan: HD on Friday, Friday, Friday Missed dialysis today K: 5.4, BUN: 62, Cr: 6.3 No signs of significant volume overload at this time Continue renal meds Nephrology consult for assistance with HD (4) Diabetes mellitus, type II: Plan: Insulin-dependent A1c: 6.9 on 07/01/2022 Continue home Lantus NovoLog sliding scale per protocol (5) SSS (sick sinus syndrome): Plan: S/p pacemaker (6) Chronic diastolic CHF (congestive heart failure): Plan: Continue torsemide (7) HTN (hypertension): Plan: Continue amlodipine, carvedilol, hydralazine (8) HLD (hyperlipidemia): Plan: Continue atorvastatin (9) Anemia: Plan: Chronic anemia Hgb: 9.9. Baseline 9.2 on 07/11 lab (10) MINISTERIO on CPAP: Plan: CPAP at bedtime (11) Obesity: Plan: S/p gastric bypass (12) Hypothyroidism: Plan: Continue levothyroxine (13) Depression: Plan: Continue citalopram DVT Prophylaxis Heparin subcu Full Code as per discussion with pt Follows with Dr Rojas for routine care Pt was seen and care coordinated with Dr Minor. See addendum I spent a total of 78 minutes reviewing notes, outpatient records, labs, medication, coordinating, documenting and providing care for this patient excluding time spent in the performance of separately billed services. History of Present Illness Chief Complaint: Falls Primary Care Provider: Luis Fernando Rojas MD Patient is 61-year-old female with PMH paroxysmal atrial tachycardia, sick sinus syndrome s/p pacemaker, chronic diastolic heart failure, HTN, dyslipidemia, DM II, ESRD on HD, chronic anemia, MINISTERIO, obesity s/p gastric bypass, hypothyroidism, depression and others listed below presented to ER with c/o weakness x1 day. Patient states yesterday was attempting to get in car when she noted bilateral leg weakness and was having difficulty lifting her legs into the car. She states her legs felt weak and she lowered self to ground. Denies hitting head. Had to have neighbor assist to get up and attempted to get in car again without success and slid down to ground again. Was able to get back into the house. At baseline does not use any assistive devices with ambulation. Today she had to use an old walker to get around house. She reports feels generally weak with greater weakness to bilateral lower legs. Denies any extremity paresthesias. Patient states for the past 3 weeks she has been having pain to right buttock and right leg with ambulation. She had chiropractic adjustment 2 days ago. She also reports since yesterday has been noting intermittent "tremoring" that occurs to bilateral arms, bilateral legs and body. Tremors are noted primarily with ambulation. Reports is fully alert and awake during these tremors. Denies LOC. On hemodialysis on Friday. Missed dialysis today. Reports makes small amount of urine. Denies any noted dysuria or hematuria. Denies fever/chills, diaphoresis, N/V/D/C, FLORES, dizziness, syncope, vision changes, neck pain, CP, SOB, orthopnea, palpitations, cough, sore throat, choking, otalgia, rhinorrhea, abdominal pain, paresthesias, increased extremity edema, rashes. Allergies Allergy/AdvReac Type Severity Reaction Status Date / Time CHIDI Inhibitors AdvReac Mild COUGH Verified 11/06/22 18:46 Home Medications Medication Instructions Recorded Confirmed Type amlodipine 5 mg tablet 5 mg PO PM 03/26/22 11/06/22 History aspirin 81 mg chewable tablet 81 mg PO HS 03/26/22 11/06/22 History atorvastatin 40 mg tablet 40 mg PO HS 03/26/22 11/06/22 History carvedilol 12.5 mg tablet 12.5 mg PO AMHS 03/26/22 11/06/22 History cholecalciferol (vitamin D3) 25 25 mcg PO PM 03/26/22 11/06/22 History mcg (1,000 unit) tablet (Vitamin D3) citalopram 40 mg tablet 20 mg PO DAILY 03/26/22 11/06/22 History cyanocobalamin (vitamin B-12) 1,000 mcg IM Q90D 03/26/22 11/06/22 History 1,000 mcg/mL injection solution famotidine 20 mg tablet See Rx Instructions .Route 03/26/22 11/06/22 History .COMPLEX PRN Acid Reflux gabapentin 600 mg tablet 600 mg PO HS 03/26/22 11/06/22 History insulin aspart U-100 100 unit/mL 0 - 25 unit subcut DIRECTED 03/26/22 11/06/22 History (3 mL) subcutaneous pen (Novolog FlexPen U-100 Insulin aspart) insulin glargine 100 unit/mL (3 20 unit subcut QAM 03/26/22 11/06/22 History mL) subcutaneous pen (Lantus Solostar U-100 Insulin) levothyroxine 100 mcg tablet 100 mcg PO DAILY 03/26/22 11/06/22 History melatonin 10 mg tablet 10 mg PO HS 03/26/22 11/06/22 History omeprazole 40 mg capsule,delayed 40 mg PO PM 03/26/22 11/06/22 History release polyethylene glycol 3350 17 gram 17 g PO DAILY PRN Constipation 03/26/22 11/06/22 History oral powder packet vit B complx, C-iron 8 mg-folic 1 tab PO PM 03/26/22 11/06/22 History acid 800 mcg-D3 1,000 unit-zinc tablet (ProRenal) calcium acetate 667 mg tablet 2,001 mg PO TIDM 11/06/22 11/06/22 History fluticasone propionate 50 2 spray intranasal HS 11/06/22 11/06/22 History mcg/actuation nasal spray,suspension (Flonase Allergy Relief) hydralazine 100 mg tablet 100 mg PO TID 11/06/22 11/06/22 History torsemide 100 mg tablet 100 mg PO DAILY 11/06/22 11/06/22 History Past Med/Surg History Medical History (Updated 11/06/22 @ 19:50 by Jessica Greenfield PA-C) Chronic diastolic CHF (congestive heart failure) Depression Diabetes mellitus, type II DVT prophylaxis Endometrial carcinoma (02/23/13) "S/P hysterectomy " ESRD (end stage renal disease) on dialysis m - w- f [place] ESRD (end stage renal disease) on dialysis GERD (gastroesophageal reflux disease) History of anesthesia reaction when had port inserted needed more medication and could feel everything History of melanoma HLD (hyperlipidemia) HTN (hypertension) Hypothyroidism MDD (major depressive disorder) Obesity MINISTERIO on CPAP Pacemaker SSS [employer] follows with dr rosalie MENDEZ (sick sinus syndrome) Pt admitted for elective pacemaker due to SSS. She underwent procedure without any complications. Monitored over night and discharged home. Surgical History H/O esophagogastroduodenoscopy H/O hernia repair History of cholecystectomy Hx of cardiac cath "2012, negative for CAD " Hx of gastric bypass S/P dialysis catheter insertion right side of chest S/P knee surgery S/P J[place]-BSO Family History Other Colonic polyp GERD (gastroesophageal reflux disease) Social History Smoking Status: Never smoker Second Hand Exposure: No; Hx Alcohol Use: No Hx Substance Use: No Preferred Language: Zambian Communication Ability: Effective Hardness Tester Required: No Beliefs That Will Affect Care: None marital status: Current Living Situation: Spouse Current Living Situation Comment: lives with Feels Safe at Home: Yes Assistive Devices: None Review of Systems Review of Systems: All systems reviewed & are unremarkable except as noted in HPI & below Physical Exam Physical Exam: General: no distress, obese Head: normocephalic, atraumatic Eyes: conjunctiva non-injected, anicteric ENT: normal inspection external ears, nose, mucous membranes moist Neck: supple, trachea midline Lungs: clear, no respiratory distress, no wheezing/rhonchi/rales CV: RRR, no murmur, trace pretibial edema Abd: protuberant, normal BS, soft, non-tender Back: No discolorations, +diffuse tenderness bilateral lower lumbar paraspinous muscles Ext: no cyanosis, no calf tenderness, sensation to light touch intact. limited active ROM to flexion of left hip, knee secondary to reported pain in left groin with flexion Neuro: A&O x 3, no focal deficits noted, normal affect Skin: warm, dry Results & Data Results & Data Vital Signs (Past 12 Hours) Vital Signs Temp Pulse Resp BP Pulse Ox O2 Del Method 11/06/22 16:00 72 19 95 11/06/22 16:00 152/59 H 11/06/22 15:47 66 11/06/22 15:42 74 18 151/67 H 95 11/06/22 13:58 36.7 C 75 18 148/75 H 96 Room Air Laboratory Results Short CBC 11/06/22 Range/Units 15:35 WBC 10.42 (4.8-10.8) K/ul Hgb 9.9 L (12.0-16.0) g/dl Hct 31.5 L (37.0-47.0) % Plt Count 190 (130-400) K/uL BMP 11/06/22 15:35 Sodium 132 L Potassium 5.4 H Chloride 96 L Carbon Dioxide 24 BUN 62 H Creatinine 6.35 H* Glucose 238 H Calcium 9.1 Liver Function 11/06/22 Range/Units 15:35 Total Bilirubin 0.4 (0.2-1.0) mg/dl AST 30 (13-39) U/L ALT 45 (7-52) U/L Alkaline Phosphatase 122 H (34-104) U/L Albumin 3.5 (3.4-5.0) gm/dl Diagnostic Findings Head CT 11/06/22 15:[address] DOSE: HISTORY: tremors, leg weakness TECHNIQUE: Multiaxial CT images of the head were performed without the use of intravenous contrast. Automated exposure control was utilized for this study. A dose lowering technique was utilized adhering to the principles of ALARA. Comparison: Head CT 01/18/2021. Findings: Stable polyp/retention cyst within the left sphenoid sinus. The mastoid air cells are clear. The calvarium and skull base are intact. The ventricles and sulci are within normal limits. There is no mass, hematoma, midline shift, or acute infarct. Impression: No significant change compared to the prior study. No acute intracranial abnormality. ACT 112: Negative or not required by law. Electronically signed by: Kendell Toth M.D. 11/06/2022 4:39 PM Hip/Pelvis X-Ray 11/06/22 15:26 XR hip LT 2V w pelvis CLINICAL HISTORY: pain post fall TECHNIQUE: 2 views of the left hip and single frontal view of the pelvis were obtained. Comparison: None available at the time of this dictation. FINDINGS: There is no evidence of an acute fracture. Degenerative changes are seen in the hip joint. Vascular calcifications are noted. IMPRESSION: No evidence of acute osseous injury. ACT 112: Negative or not required by law. Electronically signed by: Severino David M.D. 11/06/2022 4:[address] 11/06/22 15:26 CT lumbar spine wo con CLINICAL HISTORY: leg pain/weakness TECHNIQUE: Multidetector row helical CT of the lumbar spine was performed without administration of intravenous contrast. Coronal and sagittal reformations were obtained. Automated dose lowering techniques and/or adjustment according to patient size were utilized for this exam. CT DOSE: 1642.93 mGy.cm Comparison: Comparison is made to CT lumbar spine 07/15/2012 FINDINGS: For counting purposes, the last complete intervertebral disc space is considered L5-S1. No acute fractures are identified. Degenerative changes are noted in the visualized spine. Vertebral body alignment is within normal limits. Surrounding soft tissues are unremarkable. IMPRESSION: Degenerative changes are seen without evidence of acute fractures. ACT 112: Negative or not required by law. Electronically signed by: Severino David M.D. 11/06/2022 4:37 PM Chest X-Ray 11/06/22 17:29 XR chest 1V portable CLINICAL HISTORY: r/o chf TECHNIQUE: Single frontal radiograph of the chest was obtained. Comparison: Comparison is made to chest radiograph 03/26/2022 FINDINGS: Dual lead pacemaker is seen. Cardiomegaly is noted. The aortic arch is calcified. The lungs are clear. No evidence of pleural effusion or pneumothorax. IMPRESSION: Cardiomegaly without evidence of pulmonary edema. ACT 112: Negative or not required by law. Electronically signed by: Severino David M.D. 11/06/2022 6:07 PM Supervising Physician Co-Signing Physician Notes Attending addendum: The patient was seen and examined in emergency room in presence of the She has been complaining of weakness and shakes involving the whole body which has been going on since yesterday Did not have any fall denies any infection, no fever and or chills, no cough or phlegm, no problem with urine or bowel habit She mentioned to have virus infection about 3 to 4 weeks back but not COVID On examination Lying in bed comfortably Obese and hemodynamically stable Chest-minimal crackles at the bases Heart-S1-S2, regular Abdomen-distended, soft, nontender and bowel sound present Extremities-trace edema bilaterally WINDOW DISPLAY DESIGNER-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 No focal sensory or no motor deficit appreciated Her admission labs, EKG and imaging studies reviewed Has ambulatory dysfunction with bilateral weakness-Will need PT OT evaluation and also orthostatic vitals End-stage renal disease on hemodialysis Hypertension Agree with assessment and plan as outlined above by OKSANA Hall Dr (7) HTN (hypertension) Hypertension type: unspecified Qualified Code(s): I10 - Essential (primary) hypertension
[2022-11-06] MEDS ORDERED: hydrALAZINE TAB 50 MG TAB PO STA (17:49)
--- NOTE | 2022-11-06 18:08 | XRay Report ---
XR chest 1V portable CLINICAL HISTORY: r/o chf TECHNIQUE: Single frontal radiograph of the chest was obtained. Comparison: Comparison is made to chest radiograph 03/26/2022 FINDINGS: Dual lead pacemaker is seen. Cardiomegaly is noted. The aortic arch is calcified. The lungs are clear . No evidence of pleural effusion or pneumothorax. IMPRESSION: Cardiomegaly without evidence of pulmonary edema. ACT 112: Negative or not required by law. Electronically signed by: Severino David M.D. 11/06/2022 6:07 PM
[2022-11-06 19:47] LABS: Appearance Urine Clear (Clear); Bacteria Urine Automated Negative (Negative); Bilirubin Urine Negative (Negative); Blood Urine Negative (Negative); Cast Urine Automated 0 /lpf (0-5); Color Urine Yellow; Epithelial Cell Urine Auto >30 /lpf (0-5); Glucose Urine UA 1+ (Negative); Ketones Urine Negative (Negative); Leukocyte Esterase Urine 1+ (Negative); Nitrite Urine Negative (Negative); Protein Urine 1+ (Negative); RBC Urine Automated 0-4 /hpf (0-4); Specific Gravity Urine 1.012 (1.000-1.030); Urobilinogen Urine Negative (Negative); pH Urine 6.5 (4.5-7.5)
[2022-11-06] MEDS ORDERED: INSULIN ASPART PER UNIT CHARGE SC SCH (21:15)
[2022-11-06] MEDS ORDERED: CARBOHYDRATES FOR HYPOGLYCEMIA PO PRN (21:15)
[2022-11-06] MEDS ORDERED: GLUCOSE 10 TAB/TUBE PO PRN (21:15)
[2022-11-06] MEDS ORDERED: GLUCAGON FOR INJ 1 MG VIAL SQ PRN (21:15)
[2022-11-06] MEDS ORDERED: DEXTROSE 50% 50 ML SYRINGE IV PRN (21:15)
[2022-11-06] MEDS ORDERED: POLYETHYLENE (MIRALAX) 17 GM PACK PO PRN (21:15)
[2022-11-06] MEDS ORDERED: GLUCOSE 40% GEL 15 GM TUBE PO PRN (21:15)
[2022-11-06] MEDS ORDERED: MAGNESIUM HYDROXIDE SUSP 30 ML UDC PO PRN (21:15)
[2022-11-06] MEDS ORDERED: CALCIUM ACETATE 667 MG CAP/TAB PO PRN (21:29)
[2022-11-06] MEDS ORDERED: LANTUS PER UNIT CHARGE SQ STA (22:33)
[2022-11-06] MEDS: ACETAMINOPHEN 325 MG TAB PO PRN (23:08)
[2022-11-06] MEDS: INSULIN ASPART PER UNIT CHARGE SC SCH (23:08)
[2022-11-06] MEDS: ASPIRIN 81 MG CHEW PO SCH (23:09)
[2022-11-06] MEDS: amLODIPine BESYLATE 5 MG TAB PO SCH (23:10)
[2022-11-06] MEDS: MELATONIN 3 MG TAB PO SCH (23:10)
[2022-11-06] MEDS: carvediloL 12.5 MG TAB PO SCH (23:10)
[2022-11-06] MEDS: hydrALAZINE TAB 50 MG TAB PO SCH (23:11)
[2022-11-06] MEDS: PANTOprazole 40 MG TAB PO SCH (23:12)
[2022-11-06] MEDS: ATORVASTATIN 40 MG TAB PO SCH (23:12)
[2022-11-06] MEDS: CHOLECALCIFEROL 1,000 UNITS 25 MCG TAB PO SCH (23:12)
[2022-11-06] MEDS: HEPARIN SOD 5,000 UNIT/0.5 ML VIAL SQ SCH (23:13)
[2022-11-06] MEDS: GABAPENTIN 300 MG CAP PO SCH (23:14)
[2022-11-06] MEDS: NEPHROCAPS PO SCH (23:14)
[2022-11-07] MEDS: HEPARIN SOD 5,000 UNIT/0.5 ML VIAL SQ SCH ×3 (06:06→20:42)
[2022-11-07] MEDS: LEVOTHYROXINE SODIUM 100 MCG TABLET PO SCH (06:06)
[2022-11-07] MEDS ORDERED: SODIUM CHLORIDE 0.9% 1000ML 1,000 ML IV PRN (08:30)
[2022-11-07] MEDS: carvediloL 12.5 MG TAB PO SCH ×2 (08:57→20:43)
[2022-11-07] MEDS: CALCIUM ACETATE 667 MG CAP/TAB PO SCH ×3 (08:57→17:01)
[2022-11-07] MEDS: CITALOPRAM 20 MG TAB PO SCH (08:58)
[2022-11-07] MEDS: TORSEMIDE 100 MG TAB PO SCH (08:58)
[2022-11-07] MEDS: hydrALAZINE TAB 50 MG TAB PO SCH ×3 (08:58→20:46)
[2022-11-07] MEDS ORDERED: HEPARIN SOD (PORCINE) 1000 UNIT/ML IV SCH (09:00)
[2022-11-07] MEDS ORDERED: EPOETIN ALFA 10,000 UNITS/ML VIAL IV SCH (09:00)
[2022-11-07] MEDS: LANTUS PER UNIT CHARGE SQ SCH (09:05)
[2022-11-07] MEDS: INSULIN ASPART PER UNIT CHARGE SC SCH ×4 (09:05→20:34)
--- NOTE | 2022-11-07 09:25 | Nephrology Consultation ---
Date of Consultation November 07, 2022 Assessment & Plan (1) ESRD (end stage renal disease) on dialysis: On in center hemodialysis Friday Apples break via right forearm aVF radiocephalic. Chemistries and volume status after dialysis are both acceptable Daily basic metabolic panel She tolerated dialysis today with 2.5 L UF; plan next treatment tomorrow History of Present Illness Reason for Consultation: ESRD on dialysis Requesting Physician: Dr Minor Attending Physician: Romario Minor MD History of Present Illness 61 y/o F whom I'm asked to see for dialysis needs was admitted yesterday for evaluation and management of abrupt onset of bilateral lower extremity weakness, worsening ambulatory dysfunction. PMH includes ESRD on MWF HD at [facility] as well as paroxysmal atrial tach, SSS s/p PM, HFpEF, HTN, DM2, HL, MINISTERIO, obesity s/p gastric bypass, hypothyroid. She states her weakness in her bilateral lower extremities left greater than right came on abruptly on November 05 when she was trying to get into a car and fell. Also has had significant tremors same timeframe. Her only new medication is a change in phosphorus binders to PhosLo. Notes further that she has had new onset diarrhea since arrival. No change in chronic voiding habits; makes only a small amount of urine daily. Allergies Allergy/AdvReac Type Severity Reaction Status Date / Time CHIDI Inhibitors AdvReac Mild COUGH Verified 11/06/22 18:46 Home Medications Medication Instructions Recorded Confirmed Type amlodipine 5 mg tablet 5 mg PO PM 03/26/22 11/06/22 History aspirin 81 mg chewable tablet 81 mg PO HS 03/26/22 11/06/22 History atorvastatin 40 mg tablet 40 mg PO HS 03/26/22 11/06/22 History carvedilol 12.5 mg tablet 12.5 mg PO AMHS 03/26/22 11/06/22 History cholecalciferol (vitamin D3) 25 25 mcg PO PM 03/26/22 11/06/22 History mcg (1,000 unit) tablet (Vitamin D3) citalopram 40 mg tablet 20 mg PO DAILY 03/26/22 11/06/22 History cyanocobalamin (vitamin B-12) 1,000 mcg IM Q90D 03/26/22 11/06/22 History 1,000 mcg/mL injection solution famotidine 20 mg tablet See Rx Instructions .Route 03/26/22 11/06/22 History .COMPLEX PRN Acid Reflux gabapentin 600 mg tablet 600 mg PO HS 03/26/22 11/06/22 History insulin aspart U-100 100 unit/mL 0 - 25 unit subcut DIRECTED 03/26/22 11/06/22 History (3 mL) subcutaneous pen (Novolog FlexPen U-100 Insulin aspart) insulin glargine 100 unit/mL (3 20 unit subcut QAM 03/26/22 11/06/22 History mL) subcutaneous pen (Lantus Solostar U-100 Insulin) levothyroxine 100 mcg tablet 100 mcg PO DAILY 03/26/22 11/06/22 History melatonin 10 mg tablet 10 mg PO HS 03/26/22 11/06/22 History omeprazole 40 mg capsule,delayed 40 mg PO PM 03/26/22 11/06/22 History release polyethylene glycol 3350 17 gram 17 g PO DAILY PRN Constipation 03/26/22 11/06/22 History oral powder packet vit B complx, C-iron 8 mg-folic 1 tab PO PM 03/26/22 11/06/22 History acid 800 mcg-D3 1,000 unit-zinc tablet (ProRenal) calcium acetate 667 mg tablet 2,001 mg PO TIDM 11/06/22 11/06/22 History fluticasone propionate 50 2 spray intranasal HS 11/06/22 11/06/22 History mcg/actuation nasal spray,suspension (Flonase Allergy Relief) hydralazine 100 mg tablet 100 mg PO TID 11/06/22 11/06/22 History torsemide 100 mg tablet 100 mg PO DAILY 11/06/22 11/06/22 History Patient History Medical History Chronic diastolic CHF (congestive heart failure) Depression Diabetes mellitus, type II DVT prophylaxis Endometrial carcinoma (02/23/13) "S/P hysterectomy " ESRD (end stage renal disease) on dialysis m - w- [place] ESRD (end stage renal disease) on dialysis GERD (gastroesophageal reflux disease) History of anesthesia reaction when had port inserted needed more medication and could feel everything History of melanoma HLD (hyperlipidemia) HTN (hypertension) Hypothyroidism MDD (major depressive disorder) Obesity MINISTERIO on CPAP Pacemaker SSS [employer] follows with dr wiggins SSS (sick sinus syndrome) Pt admitted for elective pacemaker due to SSS. She underwent procedure without any complications. Monitored over night and discharged home. Surgical History H/O esophagogastroduodenoscopy H/O hernia repair History of cholecystectomy Hx of cardiac cath "2012, negative for CAD " Hx of gastric bypass S/P dialysis catheter insertion right side of chest S/P knee surgery S/P [place]-BSO Family History Other Colonic polyp GERD (gastroesophageal reflux disease) Social History Smoking Status: Never smoker Second Hand Exposure: No; Hx Alcohol Use: No Hx Substance Use: No Preferred Language: Kazakh Communication Ability: Effective Business Center Representative Required: No Beliefs That Will Affect Care: None marital status: Current Living Situation: Spouse Current Living Situation Comment: lives with Feels Safe at Home: Yes Safety Concerns: Feels Safe At This Time Assistive Devices: Walker Review of Systems Review of Systems: All systems reviewed & are unremarkable except as noted in HPI & below Physical Exam Constitutional: well developed (sitting on side of bed on ra), well nourished, + obese and cooperative; no acute distress Eyes: EOM intact bilaterally ENMT: Ears: no external ear abnormality Nose: no external nose abnormality Mouth: + dry oral mucous membranes Neck: no nuchal rigidity Respiratory: normal respiratory effort Auscultation: + diminished lung sounds Cardiovascular: Rate/Rhythm: regular rate and regular rhythm Extremities: + edema (trace BL ankle) and + AV fistula (R r-c AVF) Gastrointestinal (Abdomen): Inspection/Auscultation: normal bowel sounds Percussion/Palpation: abdomen soft; abdomen nontender Musculoskeletal: Extremities: strength 5/5 throughout Skin: no rashes, warm and dry Neurologic: yancey, fluent speech, no tremor Results & Data Vital Signs (Past 12 Hours) Vital Signs Temp Pulse Pulse Resp BP Pulse Ox O2 Del Method 11/07/22 07:22 36.7 C 70 18 126/64 95 Room Air 11/07/22 03:51 72 14 95 11/06/22 23:20 76 17 95 11/07/22 02:36 36.8 C 73 18 126/72 94 BiPAP 11/07/22 00:00 65 FiO2 11/07/22 07:22 11/07/22 03:51 21 11/06/22 23:20 21 11/07/22 02:36 11/07/22 00:00 Laboratory Results 11/07/22 09:50 11/07/22 09:50 Diagnostic Findings Chest x-ray Cardiomegaly without pulmonary edema Further x-rays and head and lumbar spine CTs reviewed
--- NOTE | 2022-11-07 10:11 | Electrocardiogram Report ---
Test Reason : Blood Pressure : / mmHG Vent. Rate : 065 BPM Atrial Rate : 059 BPM P-R Int : 000 ms QRS Dur : 086 ms QT Int : 432 ms P-R-T Axes : 000 014 031 degrees QTc Int : 449 ms Sinus rhythm with 1st degree AV block Abnormal ECG Confirmed by Regis Mayfield ([id number]) on 11/07/2022 10:11:15 AM Referred By: REFERRED SELF Confirmed By:Callum Mayfield
[2022-11-07 10:17] LABS: Basophils # (auto) 0.06 K/uL (0-0.2); Basophils % (auto) 0.7 %; Eosinophils # (auto) 0.15 K/uL (0-0.50); Eosinophils % (auto) 1.8 %; Hematocrit (blood only) 29.6 % (37.0-47.0); Hemoglobin 9.3 g/dl (12.0-16.0); Immature Granulocytes # (auto) 0.03 K/uL (0.01-0.20); Immature Granulocytes % (auto) 0.4 %; Lymphocytes # (auto) 2.12 K/uL (1.2-3.4); Lymphocytes % (auto) 24.7 %; Mean Corpuscular Hemoglobin 29.9 pg (25.0-34.0); Mean Corpuscular Hgb Conc 31.4 g/dL (32.0-36.0); Mean Corpuscular Volume 95.2 fL (80.0-100.0); Mean Platelet Volume 10.7 fL (9.4-12.4); Monocytes # (auto) 0.54 K/uL (0.11-0.59); Monocytes % (auto) 6.3 %; Neutrophils # (auto) 5.67 K/uL (1.40-6.50); Neutrophils % (auto) 66.1 %; Platelet Count 172 K/uL (130-400); RDW Coefficient of Variation 14.3 % (11.5-14.5); RDW Standard Deviation 50.3 fL (36.4-46.3); Red Blood Count 3.11 M/uL (4.20-5.40); White Blood Count 8.57 K/ul (4.8-10.8)
[2022-11-07 10:42] LABS: BUN Creatinine Ratio 10.1 (10-20); Calcium 8.8 mg/dl (8.6-10.3); Creatinine Clr Calc Pharmacy 9.4 ml/min; Est GFR (African American) 6.2 ml/min; Est GFR (Non-African American) 5.4 ml/min; Magnesium 2.3 mg/dl (1.7-2.4); Phosphorus 5.9 mg/dl (2.5-4.9); Potassium 5.2 mmol/L (3.5-5.1)
[2022-11-07 10:58] LABS: Iron 157 mcg/dl (35-150); Unsaturated Iron Binding Cap < 55 mcg/dl (155-355)
[2022-11-07] MEDS: HEPARIN SOD (PORCINE) 1000 UNIT/ML IV SCH (11:15)
[2022-11-07 11:44] LABS: Estimated Average Glucose 226 mg/dl; Hemoglobin A1C 9.5 % (4.5-5.6)
--- NOTE | 2022-11-07 16:37 | Hospitalist Progress Note ---
Date of Service November 07, 2022 Assessment & Plan (1) Ambulatory dysfunction: Plan: Patient is 61-year-old female with PMH paroxysmal atrial tachycardia, sick sinus syndrome s/p pacemaker, chronic diastolic heart failure, HTN, dyslipidemia, DM II, ESRD on HD, chronic anemia, MINISTERIO, obesity s/p gastric bypass, hypothyroidism, depression admitted with generalized weakness. Generalized Weakness -suspect secondary to her kidney failure, electrolyte disturbances (noted hyperkalemia) -improving, dialysis today -PT/OT ESRD on dialysis -dialysis in hospital today -trend bmp -Appreciate nephrology recs Tremor -pt states new -not currently present DMII -ISS while hospitalized Sick sinus syndrome -stable, has pacemaker CHF -continue home lasix HTN -continue home amlodipine, coreg, hydralazine HLD- continue home statin GERD- continue home ppi MDD -continue home cymbalta, celexa back pain - continue home gabapentin, cymbalta. Hypothyroidism -continue home levothyroxine Anemia- stable MINISTERIO- on cpap Continue citalopram DVT Prophylaxis Heparin SQ Full Code (2) Tremor: (3) ESRD (end stage renal disease) on dialysis: Plan: HD (4) Diabetes mellitus, type II: (5) SSS (sick sinus syndrome): (6) Chronic diastolic CHF (congestive heart failure): (7) HTN (hypertension): (8) HLD (hyperlipidemia): (9) Anemia: (10) MINISTERIO on CPAP: (11) Obesity: Plan: S/p gastric bypass (12) Hypothyroidism: (13) Depression: (14) Bilateral leg weakness: (15) Anemia: (16) Anxiety: (17) ESRD (end stage renal disease) on dialysis: (18) Pacemaker: (19) MDD (major depressive disorder): Admission and Anticipated Discharge Date Admission Date: November 06, 2022 Subjective Pt seen this AM while receiving dialysis. States that she is slightly better, her tremor and weakness are improving. States she regularly gets dialysis MWF. Denies any recent cough, congestion or signs of infection. Review of Systems Review of Systems: All systems reviewed & are unremarkable except as noted in Subjective Physical Exam Physical Exam: General: Alert, oriented. No acute distress Skin: No noted rashes or bruises Psych: Appropriate mood and affect Neuro: No gross deficits HEENT: NC/AT CV: RRR, Normal s1, s2. No murmurs appreciated Resp: Breath sounds clear bilaterally, no increased effort of breathing. s. Abdomen: Soft, nontender, nondistended. Extremities: No edema in lower extremities bilaterally. Results & Data Results & Data Vital Signs (Past 12 Hours) Vital Signs Temp Pulse Pulse Pulse Resp BP BP 11/07/22 14:41 36.6 C 76 18 126/68 11/07/22 13:20 36.6 C 62 137/55 L 11/07/22 13:00 61 141/62 H 11/07/22 12:30 62 133/60 11/07/22 12:00 62 125/54 L 11/07/22 11:30 60 113/45 L 11/07/22 07:15 76 11/07/22 11:00 59 L 128/58 L 11/07/22 10:30 60 122/57 L 11/07/22 10:00 64 129/57 L 11/07/22 09:24 36.5 C 66 11/07/22 09:56 11/07/22 07:22 36.7 C 70 18 126/64 Pulse Ox O2 Del Method 11/07/22 14:41 95 Room Air 11/07/22 13:20 11/07/22 13:00 11/07/22 12:30 11/07/22 12:00 11/07/22 11:30 11/07/22 07:15 11/07/22 11:00 11/07/22 10:30 11/07/22 10:00 11/07/22 09:24 11/07/22 09:56 Room Air 11/07/22 07:22 95 Room Air (7) HTN (hypertension) Hypertension type: unspecified Qualified Code(s): I10 - Essential (primary) hypertension
[2022-11-07] MEDS: CHOLECALCIFEROL 1,000 UNITS 25 MCG TAB PO SCH (20:42)
[2022-11-07] MEDS: ATORVASTATIN 40 MG TAB PO SCH (20:43)
[2022-11-07] MEDS: GABAPENTIN 300 MG CAP PO SCH (20:43)
[2022-11-07] MEDS: NEPHROCAPS PO SCH (20:44)
[2022-11-07] MEDS: MELATONIN 3 MG TAB PO SCH (20:44)
[2022-11-07] MEDS: amLODIPine BESYLATE 5 MG TAB PO SCH (20:44)
[2022-11-07] MEDS: ASPIRIN 81 MG CHEW PO SCH (20:45)
[2022-11-07] MEDS: PANTOprazole 40 MG TAB PO SCH (20:45)
[2022-11-08] MEDS: LEVOTHYROXINE SODIUM 100 MCG TABLET PO SCH (05:34)
[2022-11-08] MEDS: HEPARIN SOD 5,000 UNIT/0.5 ML VIAL SQ SCH ×3 (05:34→21:41)
[2022-11-08] MEDS: INSULIN ASPART PER UNIT CHARGE SC SCH ×4 (08:23→21:39)
[2022-11-08] MEDS: LANTUS PER UNIT CHARGE SQ SCH (08:24)
[2022-11-08] MEDS: CITALOPRAM 20 MG TAB PO SCH (08:25)
[2022-11-08] MEDS: TORSEMIDE 100 MG TAB PO SCH (08:25)
[2022-11-08] MEDS: CALCIUM ACETATE 667 MG CAP/TAB PO SCH ×3 (08:25→17:05)
[2022-11-08] MEDS: hydrALAZINE TAB 50 MG TAB PO SCH ×3 (08:26→20:40)
[2022-11-08] MEDS: carvediloL 12.5 MG TAB PO SCH ×2 (08:26→20:40)
[2022-11-08] MEDS ORDERED: HEPARIN SOD (PORCINE) 1000 UNIT/ML IV ONE (08:36)
[2022-11-08] MEDS ORDERED: SODIUM CHLORIDE 0.9% 1000ML 1,000 ML IV PRN (08:36)
[2022-11-08] MEDS ORDERED: EPOETIN ALFA 10,000 UNITS/ML VIAL IV ONE (08:36)
[2022-11-08 09:13] LABS: BUN Creatinine Ratio 9.7 (10-20); Calcium 8.9 mg/dl (8.6-10.3); Creatinine Clr Calc Pharmacy 12.3 ml/min; Est GFR (African American) 8.7 ml/min; Est GFR (Non-African American) 7.5 ml/min; Magnesium 2.2 mg/dl (1.7-2.4); Phosphorus 5.4 mg/dl (2.5-4.9)
[2022-11-08 09:21] LABS: Basophils # (auto) 0.06 K/uL (0-0.2); Basophils % (auto) 0.6 %; Eosinophils # (auto) 0.21 K/uL (0-0.50); Eosinophils % (auto) 2.2 %; Hemoglobin 10.2 g/dl (12.0-16.0); Immature Granulocytes # (auto) 0.02 K/uL (0.01-0.20); Immature Granulocytes % (auto) 0.2 %; Lymphocytes # (auto) 2.71 K/uL (1.2-3.4); Lymphocytes % (auto) 28.7 %; Mean Corpuscular Hemoglobin 29.7 pg (25.0-34.0); Mean Corpuscular Hgb Conc 30.9 g/dL (32.0-36.0); Mean Corpuscular Volume 96.2 fL (80.0-100.0); Mean Platelet Volume 11.4 fL (9.4-12.4); Monocytes # (auto) 0.78 K/uL (0.11-0.59); Monocytes % (auto) 8.3 %; Neutrophils # (auto) 5.65 K/uL (1.40-6.50); Platelet Count 178 K/uL (130-400); RDW Coefficient of Variation 14.4 % (11.5-14.5); RDW Standard Deviation 51.3 fL (36.4-46.3); Red Blood Count 3.43 M/uL (4.20-5.40); White Blood Count 9.43 K/ul (4.8-10.8)
[2022-11-08] MEDS: HEPARIN SOD (PORCINE) 1000 UNIT/ML IV SCH ×3 (11:33→15:17)
--- NOTE | 2022-11-08 16:46 | Hospitalist Progress Note ---
Date of Service November 08, 2022 Assessment & Plan (1) Ambulatory dysfunction: Plan: Patient is 61-year-old female with PMH paroxysmal atrial tachycardia, sick sinus syndrome s/p pacemaker, chronic diastolic heart failure, HTN, dyslipidemia, DM II, ESRD on HD, chronic anemia, MINISTERIO, obesity s/p gastric bypass, hypothyroidism, depression admitted with generalized weakness. Generalized Weakness -suspect secondary to her kidney failure, electrolyte disturbances -improving, dialysis yesterday, being kept for inpt dialysis today as well -continue to trend kidney function, electorlytes -PT/OT ESRD on dialysis -dialysis while hospitalized -trend bmp -Appreciate nephrology recs Tremor -stable DMII -ISS while hospitalized Sick sinus syndrome -stable, has pacemaker CHF -continue home lasix HTN -continue home amlodipine, coreg, hydralazine HLD- continue home statin GERD- continue home ppi MDD -continue home cymbalta, celexa back pain - continue home gabapentin, cymbalta. Hypothyroidism -continue home levothyroxine Anemia- stable MINISTERIO- on cpap Anxiety- Continue citalopram DVT Prophylaxis Heparin SQ Full Code (2) Tremor: (3) ESRD (end stage renal disease) on dialysis: Plan: HD (4) Diabetes mellitus, type II: (5) SSS (sick sinus syndrome): (6) Chronic diastolic CHF (congestive heart failure): (7) HTN (hypertension): (8) HLD (hyperlipidemia): (9) Anemia: (10) MINISTERIO on CPAP: (11) Obesity: Plan: S/p gastric bypass (12) Hypothyroidism: (13) Depression: (14) Bilateral leg weakness: (15) Anxiety: (16) Pacemaker: (17) MDD (major depressive disorder): Admission and Anticipated Discharge Date Admission Date: November 06, 2022 Subjective Pt seen this AM, laying in bed. States that she is still not back to baseline. Does not feel like the dialysis yesterday really helped her symptoms. Denies any recent cough, congestion or signs of infection. Physical Exam Physical Exam: General: Alert, oriented. No acute distress Skin: No noted rashes or bruises Psych: Appropriate mood and affect Neuro: No gross deficits HEENT: NC/AT CV: RRR, Normal s1, s2. No murmurs appreciated Resp: Breath sounds clear bilaterally, no increased effort of breathing. Abdomen: Soft, nondistended. Extremities: Trace edema in lower extremities bilaterally. Results & Data Results & Data Vital Signs (Past 12 Hours) Vital Signs Temp Pulse Pulse Resp BP BP Pulse Ox 11/08/22 15:49 36.8 C 84 18 138/72 96 11/08/22 07:15 63 11/08/22 13:30 65 107/46 L 11/08/22 13:00 60 135/48 L 11/08/22 12:38 80 106/79 11/08/22 12:30 51 L 82/56 L 11/08/22 12:00 62 100/84 11/08/22 11:30 63 120/58 L 11/08/22 11:00 59 L 130/58 L 11/08/22 10:30 65 144/58 H 11/08/22 09:52 36.4 C L 77 11/08/22 11:08 11/08/22 08:41 36.6 C 67 18 122/64 96 O2 Del Method 11/08/22 15:49 Room Air 11/08/22 07:15 11/08/22 13:30 11/08/22 13:00 11/08/22 12:38 11/08/22 12:30 11/08/22 12:00 11/08/22 11:30 11/08/22 11:00 11/08/22 10:30 11/08/22 09:52 11/08/22 11:08 Room Air 11/08/22 08:41 Room Air (7) HTN (hypertension) Hypertension type: unspecified Qualified Code(s): I10 - Essential (primary) hypertension
--- NOTE | 2022-11-08 18:33 | Dialysis Progress Note ---
Date of Service November 08, 2022 Assessment & Plan (1) ESRD (end stage renal disease) on dialysis: Plan: On in center hemodialysis Friday [facility] [place] via right forearm aVF radiocephalic. Chemistries and volume status with dialysis are both acceptable Daily basic metabolic panel She tolerated dialysis today with additional 2.6 L UF; plan next treatment on November 11 or as needs dictate with subsequent treatment at [facility] there Admission and Anticipated Discharge Date Admission Date: November 08, 2022 Subjective Seen on treatment midday. Denies shortness of breath. Did have an episode of worsened tremors this morning. Ongoing leg weakness; for possible bed at [facility] on Friday Review of Systems Review of Systems: All systems reviewed & are unremarkable except as noted in Subjective Physical Exam Constitutional: well developed, well nourished, + obese and cooperative; no acute distress Eyes: EOM intact bilaterally ENMT: Ears: no external ear abnormality Nose: no external nose abnormality Mouth: + dry oral mucous membranes Neck: no nuchal rigidity Respiratory: normal respiratory effort Auscultation: + diminished lung sounds Cardiovascular: Rate/Rhythm: regular rate and regular rhythm Extremities: + edema (trace BL ankle) and + AV fistula (R r-c AVF) Gastrointestinal (Abdomen): Inspection/Auscultation: normal bowel sounds Percussion/Palpation: abdomen soft; abdomen nontender Musculoskeletal: Extremities: strength 5/5 throughout Skin: no rashes, warm and dry Results & Data Vital Signs (Past 12 Hours) Vital Signs Temp Pulse Pulse Resp BP BP Pulse Ox 11/08/22 14:35 37.0 C 78 131/58 L 11/08/22 14:00 65 130/39 L 11/08/22 15:49 36.8 C 84 18 138/72 96 11/08/22 07:15 63 11/08/22 13:30 65 107/46 L 11/08/22 13:00 60 135/48 L 11/08/22 12:38 80 106/79 11/08/22 12:30 51 L 82/56 L 11/08/22 12:00 62 100/84 11/08/22 11:30 63 120/58 L 11/08/22 11:00 59 L 130/58 L 11/08/22 10:30 65 144/58 H 11/08/22 09:52 36.4 C L 77 11/08/22 11:08 11/08/22 08:41 36.6 C 67 18 122/64 96 O2 Del Method 11/08/22 14:35 11/08/22 14:00 11/08/22 15:49 Room Air 11/08/22 07:15 11/08/22 13:30 11/08/22 13:00 11/08/22 12:38 11/08/22 12:30 11/08/22 12:00 11/08/22 11:30 11/08/22 11:00 11/08/22 10:30 11/08/22 09:52 11/08/22 11:08 Room Air 11/08/22 08:41 Room Air Laboratory Results 11/08/22 08:22 11/08/22 08:22
[2022-11-08] MEDS: CHOLECALCIFEROL 1,000 UNITS 25 MCG TAB PO SCH (20:36)
[2022-11-08] MEDS: ATORVASTATIN 40 MG TAB PO SCH (20:40)
[2022-11-08] MEDS: NEPHROCAPS PO SCH (20:40)
[2022-11-08] MEDS: ASPIRIN 81 MG CHEW PO SCH (20:40)
[2022-11-08] MEDS: PANTOprazole 40 MG TAB PO SCH (20:40)
[2022-11-08] MEDS: GABAPENTIN 300 MG CAP PO SCH (20:40)
[2022-11-08] MEDS: amLODIPine BESYLATE 5 MG TAB PO SCH (20:40)
[2022-11-08] MEDS: MELATONIN 3 MG TAB PO SCH (20:40)
[2022-11-08] MEDS: ACETAMINOPHEN 325 MG TAB PO PRN (21:46)
[2022-11-09] MEDS: INSULIN ASPART PER UNIT CHARGE SC SCH ×4 (06:11→20:45)
--- NOTE | 2022-11-09 06:15 | Communication Note ---
Date of Service: November 09, 2022 Recurrent hypoglycemia overnight. Decrease Lantus from 20 units to 10 units daily for now BSG every 4 hours until stable.
[2022-11-09] MEDS: LEVOTHYROXINE SODIUM 100 MCG TABLET PO SCH (06:23)
[2022-11-09] MEDS: HEPARIN SOD 5,000 UNIT/0.5 ML VIAL SQ SCH ×3 (06:24→20:40)
[2022-11-09] MEDS: CALCIUM ACETATE 667 MG CAP/TAB PO SCH ×3 (08:14→17:16)
[2022-11-09] MEDS: hydrALAZINE TAB 50 MG TAB PO SCH ×3 (08:14→20:41)
[2022-11-09] MEDS: CITALOPRAM 20 MG TAB PO SCH (08:15)
[2022-11-09] MEDS: carvediloL 12.5 MG TAB PO SCH ×2 (08:15→20:41)
[2022-11-09] MEDS: TORSEMIDE 100 MG TAB PO SCH (08:16)
[2022-11-09] MEDS ORDERED: LANTUS PER UNIT CHARGE SQ SCH (09:00)
[2022-11-09 10:23] LABS: Basophils # (auto) 0.07 K/uL (0-0.2); Basophils % (auto) 0.9 %; Eosinophils # (auto) 0.18 K/uL (0-0.50); Eosinophils % (auto) 2.3 %; Hematocrit (blood only) 31.5 % (37.0-47.0); Hemoglobin 9.7 g/dl (12.0-16.0); Immature Granulocytes # (auto) 0.04 K/uL (0.01-0.20); Immature Granulocytes % (auto) 0.5 %; Lymphocytes # (auto) 2.09 K/uL (1.2-3.4); Lymphocytes % (auto) 27.2 %; Mean Corpuscular Hgb Conc 30.8 g/dL (32.0-36.0); Mean Corpuscular Volume 97.5 fL (80.0-100.0); Mean Platelet Volume 10.9 fL (9.4-12.4); Monocytes # (auto) 0.69 K/uL (0.11-0.59); Neutrophils % (auto) 60.1 %; Platelet Count 171 K/uL (130-400); RDW Coefficient of Variation 14.3 % (11.5-14.5); RDW Standard Deviation 51.5 fL (36.4-46.3); Red Blood Count 3.23 M/uL (4.20-5.40); White Blood Count 7.67 K/ul (4.8-10.8)
[2022-11-09 10:52] LABS: BUN Creatinine Ratio 8.2 (10-20); Calcium 8.8 mg/dl (8.6-10.3); Creatinine Clr Calc Pharmacy 15.4 ml/min; Est GFR (African American) 11.7 ml/min; Est GFR (Non-African American) 10.1 ml/min; Magnesium 2.2 mg/dl (1.7-2.4); Phosphorus 4.7 mg/dl (2.5-4.9); Potassium 4.4 mmol/L (3.5-5.1)
[2022-11-09] MEDS ORDERED: LOPERAMIDE HCL 2 MG CAP PO STA (11:11)
--- NOTE | 2022-11-09 11:15 | Hospitalist Progress Note ---
Date of Service November 09, 2022 Assessment & Plan (1) Ambulatory dysfunction: Plan: (1) Ambulatory dysfunction: Plan: Patient is 61-year-old female with PMH paroxysmal atrial tachycardia, sick sinus syndrome s/p pacemaker, chronic diastolic heart failure, HTN, dyslipidemia, DM II, ESRD on HD, chronic anemia, MINISTERIO, obesity s/p gastric bypass, hypothyroidism, depression admitted with generalized weakness. Generalized Weakness PT/OT plan for placement possibly on Friday ESRD on dialysis Nephro consult next dialysis on Friday Tremor stable DMII at home on lantus 20units daily and ISS having hypoglycemia Lantus cut back to 10units daily will closely monitor Sick sinus syndrome s/p pacemaker CHF home lasix on HD HTN On amlodipine, coreg, hydralazine will monitor HLD- on statin GERD- ppi MDD -on cymbalta, celexa back pain on gabapentin, cymbalta. Hypothyroidism on levothyroxine Anemia- stable MINISTERIO- on cpap Anxiety Continue citalopram Diarrhea 4-5 episoes daily c diff negative ordered a dose of imodium DVT Prophylaxis Heparin SQ Full Code (2) Tremor: (3) ESRD (end stage renal disease) on dialysis: Plan: HD (4) Diabetes mellitus, type II: (5) SSS (sick sinus syndrome): (6) Chronic diastolic CHF (congestive heart failure): (7) HTN (hypertension): (8) HLD (hyperlipidemia): (9) Anemia: (10) MINISTERIO on CPAP: (11) Obesity: Plan: S/p gastric bypass (12) Hypothyroidism: (13) Depression: (14) Bilateral leg weakness: (15) Anxiety: (16) Pacemaker: (17) MDD (major depressive disorder): (2) ESRD (end stage renal disease) on dialysis: (3) Chronic diastolic CHF (congestive heart failure): (4) SSS (sick sinus syndrome): (5) Diabetes mellitus, type II: Admission and Anticipated Discharge Date Admission Date: November 08, 2022 Subjective sitting on the chair comfortable ambulating with walker i room at home prior was not using any support for walking says having diarrhea 4-5 times daily since admission afebrile no abdominal pain no nausea no chest pain or sob no runny nose or sore throat Review of Systems Review of Systems: As above Physical Exam Constitutional: WD/WN, vitals as above Neck: trachea midline, no thyromegaly Respiratory: normal respiratory effort, lungs clear to auscultation Cardiovascular: RRR, no murmur, no edema Gastrointestinal (Abdomen): normal bowel sounds, soft, nontender, no hepatosplenomegaly Neurologic: alert and oriented no facial droop speech clear insight ok obeys commands moves extremities Results & Data Results & Data Vital Signs (Past 12 Hours) Vital Signs Temp Pulse Pulse Pulse Resp BP Pulse Ox 11/09/22 09:58 11/09/22 07:15 64 11/09/22 07:27 36.6 C 63 18 135/75 95 11/09/22 04:00 36.7 C 69 18 144/71 H 97 O2 Del Method 11/09/22 09:58 Room Air 11/09/22 07:15 11/09/22 07:27 Room Air 11/09/22 04:00 Room Air
[2022-11-09] MEDS ORDERED: LANTUS PER UNIT CHARGE SQ STA (19:25)
[2022-11-09] MEDS: MELATONIN 3 MG TAB PO SCH (20:40)
[2022-11-09] MEDS: PANTOprazole 40 MG TAB PO SCH (20:41)
[2022-11-09] MEDS: ATORVASTATIN 40 MG TAB PO SCH (20:41)
[2022-11-09] MEDS: NEPHROCAPS PO SCH (20:41)
[2022-11-09] MEDS: amLODIPine BESYLATE 5 MG TAB PO SCH (20:41)
[2022-11-09] MEDS: GABAPENTIN 300 MG CAP PO SCH (20:41)
[2022-11-09] MEDS: ASPIRIN 81 MG CHEW PO SCH (20:41)
[2022-11-09] MEDS: CHOLECALCIFEROL 1,000 UNITS 25 MCG TAB PO SCH (20:41)
[2022-11-10] MEDS: LEVOTHYROXINE SODIUM 100 MCG TABLET PO SCH (06:14)
[2022-11-10] MEDS: HEPARIN SOD 5,000 UNIT/0.5 ML VIAL SQ SCH ×3 (06:14→20:37)
[2022-11-10] MEDS: ACETAMINOPHEN 325 MG TAB PO PRN (06:17)
[2022-11-10 08:16] LABS: Basophils # (auto) 0.08 K/uL (0-0.2); Basophils % (auto) 0.7 %; Eosinophils # (auto) 0.23 K/uL (0-0.50); Eosinophils % (auto) 2.1 %; Hematocrit (blood only) 32.3 % (37.0-47.0); Hemoglobin 10.1 g/dl (12.0-16.0); Immature Granulocytes # (auto) 0.06 K/uL (0.01-0.20); Immature Granulocytes % (auto) 0.6 %; Lymphocytes # (auto) 3.21 K/uL (1.2-3.4); Lymphocytes % (auto) 29.6 %; Mean Corpuscular Hemoglobin 29.8 pg (25.0-34.0); Mean Corpuscular Hgb Conc 31.3 g/dL (32.0-36.0); Mean Corpuscular Volume 95.3 fL (80.0-100.0); Mean Platelet Volume 10.7 fL (9.4-12.4); Monocytes # (auto) 0.85 K/uL (0.11-0.59); Monocytes % (auto) 7.8 %; Neutrophils # (auto) 6.43 K/uL (1.40-6.50); Neutrophils % (auto) 59.2 %; Nucleated RBC # (auto) 0.02 K/uL (0-0.12); Nucleated RBC % (auto) 0.2 %; Platelet Count 203 K/uL (130-400); RDW Coefficient of Variation 14.3 % (11.5-14.5); RDW Standard Deviation 49.7 fL (36.4-46.3); Red Blood Count 3.39 M/uL (4.20-5.40); White Blood Count 10.86 K/ul (4.8-10.8)
[2022-11-10 08:26] LABS: BUN Creatinine Ratio 8.6 (10-20); Calcium 9.4 mg/dl (8.6-10.3); Creatinine Clr Calc Pharmacy 11.5 ml/min; Est GFR (African American) 8.1 ml/min; Potassium 4.8 mmol/L (3.5-5.1)
[2022-11-10 09:17] LABS: HBSAG NON-REACTIVE (NON-REACTIVE); Hepatitis B Surface Ab, Quant <5 mIU/mL (> OR = 10)
[2022-11-10] MEDS: CALCIUM ACETATE 667 MG CAP/TAB PO SCH ×3 (09:30→17:42)
[2022-11-10] MEDS: INSULIN ASPART PER UNIT CHARGE SC SCH ×4 (09:59→20:48)
[2022-11-10] MEDS: hydrALAZINE TAB 50 MG TAB PO SCH ×3 (10:00→20:37)
[2022-11-10] MEDS: TORSEMIDE 100 MG TAB PO SCH (10:01)
[2022-11-10] MEDS: CITALOPRAM 20 MG TAB PO SCH (10:01)
[2022-11-10] MEDS: carvediloL 12.5 MG TAB PO SCH ×2 (10:01→20:37)
[2022-11-10] MEDS: LANTUS PER UNIT CHARGE SQ SCH (10:03)
--- NOTE | 2022-11-10 12:29 | Hospitalist Progress Note ---
Date of Service November 10, 2022 Assessment & Plan (1) Ambulatory dysfunction: Plan: 1) Ambulatory dysfunction: Plan: (1) Ambulatory dysfunction: Plan: Patient is 61-year-old female with PMH paroxysmal atrial tachycardia, sick sinus syndrome s/p pacemaker, chronic diastolic heart failure, HTN, dyslipidemia, DM II, ESRD on HD, chronic anemia, MINISTERIO, obesity s/p gastric bypass, hypothyroidism, depression admitted with generalized weakness. Generalized Weakness To continue PT/OT plan for placement possibly on Friday ESRD on dialysis Nephro consult next dialysis on Friday Tremor says have tremors for years out patient followup DMII at home on lantus 20units daily and ISS having hypoglycemia Lantus cut back to 10units daily and now on 15units daily 146/257/133/200 will closely monitor Sick sinus syndrome s/p pacemaker CHF home lasix on HD HTN On amlodipine, coreg, hydralazine will monitor HLD- on statin GERD- ppi MDD -on , celexa back pain on gabapentin, Hypothyroidism on levothyroxine Anemia- stable MINISTERIO- on cpap not tolerating cpap advise for home cpap will use oxygen q hs for now Anxiety Continue citalopram Diarrhea 4-5 episodes daily c diff negative ordered a dose of Imodium resolved Incisional hernia plan for surgery. DVT Prophylaxis Heparin SQ Full Code Awaiting placement Admission and Anticipated Discharge Date Admission Date: November 08, 2022 Subjective Slept ok says when she woke up she had some chest congestion and headache that resolved now not using hospital cpap ,she says its leaking denies any chest pain or sob no nausea no cough afebrile eating ok says she has tremors in legs for long time for years Review of Systems Review of Systems: As above Physical Exam Constitutional: WD/WN, vitals as above Neck: trachea midline, no thyromegaly Respiratory: normal respiratory effort, lungs clear to auscultation Cardiovascular: RRR, no murmur, no edema Gastrointestinal (Abdomen): normal bowel sounds, soft, nontender, no hepatosplenomegaly Skin: no rashes, warm and dry Neurologic: alert and oriented no facial droop speech clear moves extremities Results & Data Results & Data Vital Signs (Past 12 Hours) Vital Signs Temp Pulse Pulse Resp BP Pulse Ox O2 Del Method 11/10/22 11:24 36.7 C 80 20 103/60 95 Room Air 11/10/22 08:01 36.5 C 77 18 141/81 H 96 Room Air 11/10/22 04:00 36.6 C 65 18 141/78 H 94 Room Air
[2022-11-10] MEDS: MELATONIN 3 MG TAB PO SCH (20:36)
[2022-11-10] MEDS: ASPIRIN 81 MG CHEW PO SCH (20:37)
[2022-11-10] MEDS: ATORVASTATIN 40 MG TAB PO SCH (20:37)
[2022-11-10] MEDS: GABAPENTIN 300 MG CAP PO SCH (20:37)
[2022-11-10] MEDS: PANTOprazole 40 MG TAB PO SCH (20:37)
[2022-11-10] MEDS: CHOLECALCIFEROL 1,000 UNITS 25 MCG TAB PO SCH (20:37)
[2022-11-10] MEDS: amLODIPine BESYLATE 5 MG TAB PO SCH (20:37)
[2022-11-10] MEDS: NEPHROCAPS PO SCH (20:37)
[2022-11-11] MEDS ORDERED: guaiFENesin SUGAR FREE 200 MG/10 ML UDC PO PRN (03:33)
[2022-11-11] MEDS: LEVOTHYROXINE SODIUM 100 MCG TABLET PO SCH (06:20)
[2022-11-11] MEDS: HEPARIN SOD 5,000 UNIT/0.5 ML VIAL SQ SCH ×3 (06:20→20:43)
[2022-11-11] MEDS: INSULIN ASPART PER UNIT CHARGE SC SCH ×4 (08:05→20:41)
[2022-11-11] MEDS: LANTUS PER UNIT CHARGE SQ SCH (08:06)
[2022-11-11] MEDS: TORSEMIDE 100 MG TAB PO SCH (08:08)
[2022-11-11] MEDS: CITALOPRAM 20 MG TAB PO SCH (08:08)
[2022-11-11] MEDS: CALCIUM ACETATE 667 MG CAP/TAB PO SCH ×4 (08:09→18:19)
[2022-11-11] MEDS ORDERED: SODIUM CHLORIDE 0.9% 1000ML 1,000 ML IV PRN (08:19)
[2022-11-11 08:27] LABS: Basophils # (auto) 0.07 K/uL (0-0.2); Basophils % (auto) 0.7 %; Eosinophils # (auto) 0.19 K/uL (0-0.50); Eosinophils % (auto) 1.8 %; Hematocrit (blood only) 29.9 % (37.0-47.0); Hemoglobin 9.5 g/dl (12.0-16.0); Immature Granulocytes # (auto) 0.04 K/uL (0.01-0.20); Immature Granulocytes % (auto) 0.4 %; Lymphocytes # (auto) 3.35 K/uL (1.2-3.4); Lymphocytes % (auto) 31.6 %; Mean Corpuscular Hemoglobin 29.8 pg (25.0-34.0); Mean Corpuscular Hgb Conc 31.8 g/dL (32.0-36.0); Mean Corpuscular Volume 93.7 fL (80.0-100.0); Mean Platelet Volume 10.5 fL (9.4-12.4); Monocytes # (auto) 0.73 K/uL (0.11-0.59); Monocytes % (auto) 6.9 %; Neutrophils # (auto) 6.22 K/uL (1.40-6.50); Neutrophils % (auto) 58.6 %; Platelet Count 207 K/uL (130-400); RDW Coefficient of Variation 14.2 % (11.5-14.5); RDW Standard Deviation 48.4 fL (36.4-46.3); Red Blood Count 3.19 M/uL (4.20-5.40)
[2022-11-11] MEDS ORDERED: EPOETIN ALFA 4,000 UNIT/ML VIAL IV SCH (09:00)
[2022-11-11 09:04] LABS: BUN Creatinine Ratio 9.6 (10-20); Calcium 9.2 mg/dl (8.6-10.3); Creatinine Clr Calc Pharmacy 9.3 ml/min; Est GFR (African American) 6.2 ml/min; Est GFR (Non-African American) 5.4 ml/min; Potassium 5.2 mmol/L (3.5-5.1)
--- NOTE | 2022-11-11 10:03 | Dialysis Progress Note ---
Date of Service November 11, 2022 Assessment & Plan Admission and Anticipated Discharge Date Admission Date: November 08, 2022 Subjective Assessment & Plan (1) ESRD (end stage renal disease) on dialysis: Plan: On in center hemodialysis Friday [facility] via right forearm aVF radiocephalic. Chemistries and volume status with dialysis are both acceptable Daily basic metabolic panel tolerating dialysis today . AVF has some issues but getting QB of 300. Subjective Seen on treatment midday. Denies shortness of breath. Less tremor and Ongoing leg weakness. for possible bed at [facility] after dialysis for rehab. Review of Systems Review of Systems: All systems reviewed & are unremarkable except as noted in Subjective Physical Exam Constitutional: well developed, well nourished, + obese and cooperative; no acute distress Eyes: EOM intact bilaterally ENMT: Ears: no external ear abnormality Nose: no external nose abnormality Mouth: + dry oral mucous membranes Neck: no nuchal rigidity Respiratory: normal respiratory effort Auscultation: + diminished lung sounds Cardiovascular: Rate/Rhythm: regular rate and regular rhythm Extremities: + edema (trace BL ankle) and + AV fistula (R r-c AVF) Gastrointestinal (Abdomen): Inspection/Auscultation: normal bowel sounds Percussion/Palpation: abdomen soft; abdomen nontender Musculoskeletal: Extremities: strength 5/5 throughout Skin: no rashes, warm and dry Results & Data Vital Signs (Past 12 Hours) Vital Signs Temp Pulse Pulse Pulse Resp BP BP 11/11/22 09:30 73 151/63 H 11/11/22 09:06 36.5 C 77 11/11/22 08:26 36.5 C 71 18 119/63 11/11/22 06:04 65 11/11/22 04:00 36.7 C 62 18 144/77 H Pulse Ox O2 Del Method 11/11/22 09:30 11/11/22 09:06 11/11/22 08:26 96 Room Air 11/11/22 06:04 11/11/22 04:00 95 Room Air
--- NOTE | 2022-11-11 11:44 | Hospitalist Progress Note ---
Date of Service November 11, 2022 Assessment & Plan (1) Bilateral leg weakness: Plan: Acute uncertain cause. Workup to date is unrevealing. On exam her strength is intact in her lower extremities, however, she appears uncoordinated when performing dorsi and plantarflexion. Heading to rehab. Would continue the workup as outpatient. (2) Morbid obesity due to excess calories: Plan: Weight loss recommended. (3) ESRD (end stage renal disease) on dialysis: Plan: Chronic, stable. Cont MWF HD with Phoslo to cover both meals and snacks. Hyponatremia present, likely multifactorial given torsemide/cymbalta use, etc. Hyperkalemia -cont per Nephrology (4) Hypothyroidism: Plan: chronic, stable. TSH within normal limits. (5) Depression: Plan: chronic, stable. Cont cymbalta per home regimen. (6) MINISTERIO on CPAP: Plan: chronic, stable. Cont CPAP qHS (7) HTN (hypertension): Plan: chronic, controlled and at goal with current medical therapy. (8) Diabetes mellitus, type II: Plan: chronic, glucose is uncontrolled with A1C 9.5. This is up from 7.4 in Mar and may be the reason for her current issues. Cont glycemic control therapy as ordered with insulin. May adjust at discharge. Followup with outpatient [facility] pharmacist. Full COde Heparin Dispo-to rehab in am . [facility] Admission and Anticipated Discharge Date Admission Date: November 08, 2022 Subjective 61 yo F on hemodialysis presents with acute onset weakness in her legs bilaterally causing a fall had HD today she feels ready to get to rehab and was hoping to go today no acute issues discussed removing her heart monitor. Review of Systems Review of Systems: All systems were reviewed and negative except as indicated on subjective above. Physical Exam Physical Exam: CONSTITUTIONAL: morbidly obese, vitals as above, generally well-appearing, NAD EYES: normal conjunctivae, no scleral icterus ENT: external ear and nose normal, MMM NECK: trachea midline RESPIRATORY: clear to auscultation bilaterally, no crackles, rales or wheezes, normal respiratory effort CARDIOVASCULAR: regular rate and rhythm, S1 and 2 heard without murmurs, gallops or rubs, no JVD, no peripheral edema CHEST: inspection of chest was normal GASTROINTESTINAL: soft, nontender, ND, no guarding MUSCULOSKELETAL: strength 5/5 throughout, head is normocephalic and atraumatic SKIN: warm and dry NEUROLOGIC: CN 2-12 grossly intact, no sensory deficit, normal cognition, normal speech, no tremor PSYCHIATRIC: alert cooperative and oriented to person, place and time. Euthymic mood, makes good eye contact, language grossly intact, recent and remote memory grossly intact. Results & Data Results & Data Vital Signs (Past 12 Hours) Vital Signs Temp Pulse Pulse Pulse Resp BP BP 11/11/22 10:00 62 139/57 L 11/11/22 09:30 73 151/63 H 11/11/22 09:06 36.5 C 77 11/11/22 08:26 36.5 C 71 18 119/63 11/11/22 06:04 65 11/11/22 04:00 36.7 C 62 18 144/77 H Pulse Ox O2 Del Method 11/11/22 10:00 11/11/22 09:30 11/11/22 09:06 11/11/22 08:26 96 Room Air 11/11/22 06:04 11/11/22 04:00 95 Room Air Laboratory Results Short CBC 11/11/22 Range/Units 07:12 WBC 10.60 (4.8-10.8) K/ul Hgb 9.5 L (12.0-16.0) g/dl Hct 29.9 L (37.0-47.0) % Plt Count 207 (130-400) K/uL BMP 11/11/22 07:12 Sodium 132 L Potassium 5.2 H Chloride 98 Carbon Dioxide 24 BUN 71 H D Creatinine 7.37 H* D Glucose 151 H Calcium 9.2 Medications Administered Current Inpatient Medications Acetaminophen (Acetaminophen 325 Mg Tab) 650 mg PO Q4H PRN PRN Reason: Pain or Fever Stop: 12/06/22 21:14 Last Admin: 11/10/22 06:17 Dose: 650 mg Amlodipine Besylate (Amlodipine Besylate 5 Mg Tab) 5 mg PO PM PAULA Stop: 12/06/22 21:14 Last Admin: 11/10/22 20:37 Dose: 5 mg Aspirin (Aspirin 81 Mg Chew) 81 mg PO HS PAULA Stop: 12/06/22 21:14 Last Admin: 11/10/22 20:37 Dose: 81 mg Atorvastatin Calcium (Atorvastatin 40 Mg Tab) 40 mg PO HS PAULA Stop: 12/06/22 21:14 Last Admin: 11/10/22 20:37 Dose: 40 mg Calcium Acetate (Calcium Acetate 667 Mg Cap/Tab) 2,001 mg PO TIDM PAULA Stop: 12/07/22 07:59 Last Admin: 11/11/22 08:09 Dose: 2,001 mg Calcium Acetate (Calcium Acetate 667 Mg Cap/Tab) 1,334 mg PO BID PRN PRN Reason: give with snacks Stop: 12/06/22 21:28 Carvedilol (Carvedilol 12.5 Mg Tab) 12.5 mg PO AMHS PAULA Stop: 12/06/22 21:14 Last Admin: 11/10/22 20:37 Dose: 12.5 mg Citalopram Hydrobromide (Citalopram 20 Mg Tab) 20 mg PO DAILY PAULA Stop: 12/07/22 08:59 Last Admin: 11/11/22 08:08 Dose: 20 mg Dextrose (Dextrose 50% 50 Ml Syringe) 25 - 50 ml IV UD PRN; Protocol PRN Reason: Hypoglycemia Protocol Stop: 12/06/22 21:14 Epoetin Jordan (Epoetin Jordan 4,000 Unit/Ml Vial) 4,000 units IV TODAY@0900 PAULA Stop: 11/11/22 23:59 Gabapentin (Gabapentin 300 Mg Cap) 300 mg PO HS [facility] Stop: 12/06/22 21:14 Last Admin: 11/10/22 20:37 Dose: 300 mg Glucagon (Glucagon For Inj 1 Mg Vial) 1 mg SQ UD PRN; Protocol PRN Reason: Hypoglycemia Protocol Stop: 12/06/22 21:14 Glucose (Glucose 10 Tab/Tube) 4 - 8 tab PO UD PRN; Protocol PRN Reason: Hypoglycemia Treatment Stop: 12/06/22 21:14 Glucose (Glucose 40% Gel 15 Gm Tube) 15 - 30 gm PO UD PRN; Protocol PRN Reason: Hypoglycemia Protocol Stop: 12/06/22 21:14 Guaifenesin (Guaifenesin Sugar Free 200 Mg/10 Ml Udc) 200 mg PO Q6H PRN PRN Reason: Cough Stop: 12/11/22 03:32 Last Admin: 11/11/22 03:57 Dose: 200 mg Heparin Sodium (Porcine) (Heparin Sod 5,000 Unit/0.5 Ml Vial) 5,000 units SQ Q8 PAULA Stop: 12/06/22 21:59 Last Admin: 11/11/22 06:20 Dose: 5,000 units Hydralazine HCl (Hydralazine Tab 50 Mg Tab) 100 mg PO TID PAULA Stop: 12/06/22 22:59 Last Admin: 11/10/22 20:37 Dose: 100 mg Sodium Chloride (Nss 1000ml) 1,000 mls @ 0 mls/hr IV .Q0M PRN PRN Reason: For Hemodialysis Use ONLY Stop: 11/11/22 14:18 Insulin Aspart (Insulin Aspart Per Unit Charge) 0 units SC ACHS PAULA Stop: 12/09/22 20:59 Last Admin: 11/11/22 08:05 Dose: 9 units Insulin Glargine (Lantus Per Unit Charge) 15 units SQ DAILY PAULA Stop: 12/10/22 08:59 Last Admin: 11/11/22 08:06 Dose: 15 units Levothyroxine Sodium (Levothyroxine Sodium 100 Mcg Tablet) 100 mcg PO DAILYBB PAULA Stop: 12/07/22 06:29 Last Admin: 11/11/22 06:20 Dose: 100 mcg Magnesium Hydroxide (Magnesium Hydroxide Susp 30 Ml Udc) 30 ml PO Q12H PRN PRN Reason: Constipation Stop: 12/06/22 21:14 Melatonin (Melatonin 3 Mg Tab) 9 mg PO HS [facility] Stop: 12/06/22 21:59 Last Admin: 11/10/22 20:36 Dose: 9 mg Miscellaneous (Carbohydrates For Hypoglycemia ) 15 - 30 gm PO UD PRN PRN Reason: Hypoglycemia Protocol Stop: 12/06/22 21:14 Last Admin: 11/08/22 22:41 Dose: 15 gm Pantoprazole Sodium (Pantoprazole 40 Mg Tab) 40 mg PO PM PAULA Stop: 12/06/22 21:14 Last Admin: 11/10/22 20:37 Dose: 40 mg Polyethylene Glycol (Polyethylene (Miralax) 17 Gm Pack) 17 gm PO DAILY PRN PRN Reason: Constipation Stop: 12/06/22 21:14 Torsemide (Torsemide 100 Mg Tab) 100 mg PO DAILY PAULA Stop: 12/07/22 08:59 Last Admin: 11/11/22 08:08 Dose: 100 mg Vitamin B Complex/Folic Acid (Nephrocaps) 1 cap PO PM PAULA Stop: 12/06/22 21:14 Last Admin: 11/10/22 20:37 Dose: 1 cap Vitamin D (Cholecalciferol 1,000 Units 25 Mcg Tab) 1,000 units PO PM PAULA Stop: 12/06/22 21:14 Last Admin: 11/10/22 20:37 Dose: 1,000 units (7) HTN (hypertension) Hypertension type: unspecified Qualified Code(s): I10 - Essential (primary) hypertension
[2022-11-11] MEDS: hydrALAZINE TAB 50 MG TAB PO SCH ×4 (14:05→20:30)
[2022-11-11] MEDS: carvediloL 12.5 MG TAB PO SCH ×2 (14:12→20:31)
[2022-11-11] MEDS: MELATONIN 3 MG TAB PO SCH (20:29)
[2022-11-11] MEDS: amLODIPine BESYLATE 5 MG TAB PO SCH (20:29)
[2022-11-11] MEDS: ATORVASTATIN 40 MG TAB PO SCH (20:30)
[2022-11-11] MEDS: ASPIRIN 81 MG CHEW PO SCH (20:31)
[2022-11-11] MEDS: CHOLECALCIFEROL 1,000 UNITS 25 MCG TAB PO SCH (20:31)
[2022-11-11] MEDS: NEPHROCAPS PO SCH (20:31)
[2022-11-11] MEDS: PANTOprazole 40 MG TAB PO SCH (20:32)
[2022-11-11] MEDS: ACETAMINOPHEN 325 MG TAB PO PRN (20:35)
[2022-11-11] MEDS ORDERED: GABAPENTIN 300 MG CAP PO SCH (21:00)
[2022-11-12] MEDS: HEPARIN SOD 5,000 UNIT/0.5 ML VIAL SQ SCH (06:13)
[2022-11-12] MEDS: LEVOTHYROXINE SODIUM 100 MCG TABLET PO SCH (06:13)
[2022-11-12 07:07] LABS: BUN Creatinine Ratio 8.7 (10-20); Calcium 9.2 mg/dl (8.6-10.3); Creatinine Clr Calc Pharmacy 12.5 ml/min; Est GFR (African American) 8.9 ml/min; Est GFR (Non-African American) 7.6 ml/min; Magnesium 2.4 mg/dl (1.7-2.4); Phosphorus 4.3 mg/dl (2.5-4.9); Potassium 4.8 mmol/L (3.5-5.1)
[2022-11-12] MEDS: CALCIUM ACETATE 667 MG CAP/TAB PO SCH ×2 (08:13→12:47)
[2022-11-12] MEDS: CITALOPRAM 20 MG TAB PO SCH (08:13)
[2022-11-12] MEDS: carvediloL 12.5 MG TAB PO SCH (08:15)
[2022-11-12] MEDS: hydrALAZINE TAB 50 MG TAB PO SCH ×2 (08:15→12:48)
[2022-11-12] MEDS: TORSEMIDE 100 MG TAB PO SCH (08:15)
[2022-11-12] MEDS: INSULIN ASPART PER UNIT CHARGE SC SCH ×2 (09:03→12:50)
[2022-11-12] MEDS: LANTUS PER UNIT CHARGE SQ SCH (09:04)
--- NOTE | 2022-11-12 09:53 | Discharge Summary ---
Discharge Summary Date of Service November 12, 2022 Admission HPI Per Admitting Provider Patient is 61-year-old female with PMH paroxysmal atrial tachycardia, sick sinus syndrome s/p pacemaker, chronic diastolic heart failure, HTN, dyslipidemia, DM II, ESRD on HD, chronic anemia, MINISTERIO, obesity s/p gastric bypass, hypothyroidism, depression and others listed below presented to ER with c/o weakness x1 day. Patient states yesterday was attempting to get in car when she noted bilateral leg weakness and was having difficulty lifting her legs into the car. She states her legs felt weak and she lowered self to ground. Denies hitting head. Had to have neighbor assist to get up and attempted to get in car again without success and slid down to ground again. Was able to get back into the house. At baseline does not use any assistive devices with ambulation. Today she had to use an old walker to get around house. She reports feels generally weak with greater weakness to bilateral lower legs. Denies any extremity paresthesias. Patient states for the past 3 weeks she has been having pain to right buttock and right leg with ambulation. She had chiropractic adjustment 2 days ago. She also reports since yesterday has been noting intermittent "tremoring" that occurs to bilateral arms, bilateral legs and body. Tremors are noted primarily with ambulation. Reports is fully alert and awake during these tremors. Denies LOC. On hemodialysis on Friday. Missed dialysis today. Reports makes small amount of urine. Denies any noted dysuria or hematuria. Denies fever/chills, diaphoresis, N/V/D/C, FLORES, dizziness, syncope, vision changes, neck pain, CP, SOB, orthopnea, palpitations, cough, sore throat, choking, otalgia, rhinorrhea, abdominal pain, paresthesias, increased extremity edema, rashes. Principal Dx & Hospital Course #1 = Principal Diagnosis (1) Bilateral leg weakness: Acute uncertain cause. Workup to date is unrevealing. On exam her strength is intact in her lower extremities, however, she appears uncoordinated when performing dorsi and plantarflexion. Heading to rehab. Would continue the workup as outpatient. (2) Morbid obesity due to excess calories: Weight loss recommended. (3) ESRD (end stage renal disease) on dialysis: Chronic, stable. Cont MWF HD with Phoslo to cover both meals and snacks. Hyponatremia present, likely multifactorial given torsemide/cymbalta use, etc. Hyperkalemia -cont per Nephrology (4) Hypothyroidism: chronic, stable. TSH within normal limits. (5) Depression: chronic, stable. Cont cymbalta per home regimen. (6) MINISTERIO on CPAP: chronic, stable. Cont CPAP qHS (7) HTN (hypertension): chronic, controlled and at goal with current medical therapy. (8) Diabetes mellitus, type II: chronic, glucose is uncontrolled with A1C 9.5. This is up from 7.4 in Mar and may be the reason for her current issues. Cont glycemic control therapy as ordered with insulin. May adjust at discharge. Followup with outpatient [facility] pharmacist. Full COde Heparin Dispo-to rehab in am . [facility] Discharge Exam CONSTITUTIONAL: morbidly obese, vitals as above, generally well-appearing, NAD EYES: normal conjunctivae, no scleral icterus ENT: external ear and nose normal, MMM NECK: trachea midline RESPIRATORY: clear to auscultation bilaterally, no crackles, rales or wheezes, normal respiratory effort CARDIOVASCULAR: regular rate and rhythm, S1 and 2 heard without murmurs, gallops or rubs, no JVD, no peripheral edema CHEST: inspection of chest was normal GASTROINTESTINAL: soft, nontender, ND, no guarding MUSCULOSKELETAL: strength 5/5 throughout, head is normocephalic and atraumatic SKIN: warm and dry NEUROLOGIC: CN 2-12 grossly intact, no sensory deficit, normal cognition, normal speech, no tremor PSYCHIATRIC: alert cooperative and oriented to person, place and time. Euthymic mood, makes good eye contact, language grossly intact, recent and remote memory grossly intact. Updated Medication List Medication Instructions Recorded Confirmed Type amlodipine 5 mg tablet 5 mg PO PM 03/26/22 11/06/22 History aspirin 81 mg chewable tablet 81 mg PO HS 03/26/22 11/06/22 History atorvastatin 40 mg tablet 40 mg PO HS 03/26/22 11/06/22 History carvedilol 12.5 mg tablet 12.5 mg PO AMHS 03/26/22 11/06/22 History cholecalciferol (vitamin D3) 25 25 mcg PO PM 03/26/22 11/06/22 History mcg (1,000 unit) tablet (Vitamin D3) citalopram 40 mg tablet 20 mg PO DAILY 03/26/22 11/06/22 History cyanocobalamin (vitamin B-12) 1,000 mcg IM Q90D 03/26/22 11/06/22 History 1,000 mcg/mL injection solution famotidine 20 mg tablet See Rx Instructions .Route 03/26/22 11/06/22 History .COMPLEX PRN Acid Reflux gabapentin 600 mg tablet 600 mg PO HS 03/26/22 11/06/22 History insulin aspart U-100 100 unit/mL 0 - 25 unit subcut DIRECTED 03/26/22 11/06/22 History (3 mL) subcutaneous pen (Novolog FlexPen U-100 Insulin aspart) insulin glargine 100 unit/mL (3 20 unit subcut QAM 03/26/22 11/06/22 History mL) subcutaneous pen (Lantus Solostar U-100 Insulin) levothyroxine 100 mcg tablet 100 mcg PO DAILY 03/26/22 11/06/22 History melatonin 10 mg tablet 10 mg PO HS 03/26/22 11/06/22 History omeprazole 40 mg capsule,delayed 40 mg PO PM 03/26/22 11/06/22 History release polyethylene glycol 3350 17 gram 17 g PO DAILY PRN Constipation 03/26/22 11/06/22 History oral powder packet vit B complx, C-iron 8 mg-folic 1 tab PO PM 03/26/22 11/06/22 History acid 800 mcg-D3 1,000 unit-zinc tablet (ProRenal) calcium acetate 667 mg tablet 2,001 mg PO TIDM 11/06/22 11/06/22 History fluticasone propionate 50 2 spray intranasal HS 11/06/22 11/06/22 History mcg/actuation nasal spray,suspension (Flonase Allergy Relief) hydralazine 100 mg tablet 100 mg PO TID 11/06/22 11/06/22 History torsemide 100 mg tablet 100 mg PO DAILY 11/06/22 11/06/22 History Hospital Stay Data Consultations 11/06/22 16:58 ED Decision to Admit Stat 11/06/22 21:15 Consult Nephrology Routine Diagnostic Imagining Performed 11/06/22 15:26 CT head/brain wo con Stat CT lumbar spine wo con Stat Pending Results Patient Have Any Pending Studies at Discharge: No Discharge Instructions Given to Patient (Per Discharging Provider) Please take all medications as instructed on discharge list below. Please follow-up with your primary care provider after returning home to review your medications and assist with better glucose control. It was a pleasure taking care of you! Please call if you have any questions or problems. You can reach a [facility] hospitalist on duty at [facility] 24 hours a day by calling [phone]. Take care of yourself. Maria D Baird, [facility] Center[facility]
[2022-11-12 14:08] LABS: Hematocrit (blood only) 31.5 % (37.0-47.0); Hemoglobin 9.8 g/dl (12.0-16.0); Mean Corpuscular Hemoglobin 29.7 pg (25.0-34.0); Mean Corpuscular Hgb Conc 31.1 g/dL (32.0-36.0); Mean Corpuscular Volume 95.5 fL (80.0-100.0); Mean Platelet Volume 10.7 fL (9.4-12.4); Platelet Count 231 K/uL (130-400); RDW Coefficient of Variation 14.5 % (11.5-14.5); White Blood Count 12.24 K/ul (4.8-10.8)
== END 2022-11-12 15:05 | DRG 555 ==
LOC: ED 13:56 → 2W 13:56 → SUATTDRO 17:29 → 2W 20:50 → SUATTDRO 11-08 16:55 → 3N 11-12 00:41

== ENCOUNTER 2024-01-09 01:54 | Inpatient (IN) ==
--- NOTE | 2024-01-09 02:19 | Emergency Department Note ---
Impression & Plan Fall, ESRD (end stage renal disease) on dialysis, Closed right tibial fracture ED Provider Note Provider: Red Love MD DATE OF SERVICE: 01/09/2024 CHIEF COMPLAINT: Fall, right leg pain HISTORY OF PRESENT ILLNESS: Patient is a 63-year-old history of ESRD on dialysis, CHF, sick sinus syndrome with pacemaker, type 2 diabetes, hypertension, GI bleed presenting here today after a fall. In her camper had to get up and go to the bathroom about an hour prior to arrival when she was coming out of their slipped on the wet floor and fell to the ground. States she thinks she bumped her head but did not lose conscious. Right leg went under her and she has significant pain in her right lower leg and was unable to walk. EMS was activated and came here for evaluation. Denies any pain in the left leg or arms. Denies any significant headache or neck pain. Denies chest pain or shortness of breath. Denies abdominal pain. Denies feeling lightheaded or dizzy prior to the fall or now. Significant pain just below the right knee. Has some neuropathy but denies new numbness or tingling extremities particular in the right foot. Denies significant hip pain. Is due for dialysis today. PAST MEDICAL HISTORY: As noted above MEDICATIONS: Reviewed home medications SOCIAL HISTORY: PHYSICAL EXAM: GENERAL: alert and oriented in no acute distress on stretcher Head: normocephalic and atraumatic EYES: No injection, discharge or icterus. EOMI. NECK: Trachea midline. Supple without midline cervical tenderness ENT: Mucous membranes pink and moist. LUNGS: Airway patent. No retractions. Breath sounds clear with good air entry bilaterally. HEART: Regular rate and rhythm. No chest wall tenderness ABDOMEN: Soft and non-tender, without guarding or rebound. Stable pelvis SKIN: Acyanotic, warm, dry, without rashes EXTREMITIES: Without swelling, tenderness or deformity except for the right lower leg just below the knee distally with significant pain. No open wounds. Some bruising at the proximal right pearl. 1+ right DP pulse with intact sensation over the right toes. No significant right hip pain or thigh pain. There is a right upper extremity fistula present with thrill. NEUROLOGICAL: No aphasia. No facial droop or slurred speech. Normal strength and tone in the extremities. EK bpm AV paced rhythm without PVC. No clear acute ST segment elevation with interventricular conduction delay consistent with pacing. GCS 15. 1 view chest x-ray per my interpretation: Pacemaker in place without pneumonia, pneumothorax, or significant pulmonary edema. 2 view right knee and right tib-fib x-ray per interpretation: No obvious dislocation or large fracture noted. Question of a healing fracture of the proximal tibia between the condyles Patient's laboratory studies and imaging reviewed. Differential includes Fracture, dislocation, contusion, intra-abdominal, pneumothorax, intrathoracic, intracranial, neurologic, compartment syndrome, rhabdomyolysis, as well as other pathologies. IMPRESSION/MEDICAL DECISION MAKING: Patient suffered a mechanical type fall slipping but now with significant pain just below the right knee. Will obtain x-rays look for possible fracture here. Do not see any open wound. Neurovascular intact in the right foot with 1+ right DP pulse. Baseline neuropathy here. Did bump her head and on baby aspirin. Will obtain CT of the head as well as cervical spine given the fall but low suspicion for intra-abdominal bleeding or intrathoracic bleeding. Basic blood work was checked. Given some fentanyl for pain here. X-rays without a clear fracture and there is a possible hairline fracture noted on the films of the proximal tibia. Question occult given her significant pain. CT of the lower extremity/tib-fib ordered. Doubt dislocation or vascular compromise again. Blood work here with mild leukocytosis 13.1 and mild anemia. Not far off from recent prior values. Electrolytes with findings consistent with end-stage renal disease due for dialysis today but no severe hyperkalemia requiring emergent treatment or dialysis. Hyperglycemia secondary to her diabetes is noted. CT of the head and cervical spine reviewed and no clear evidence of any fracture or intracranial bleed. CT of the tib-fib was completed to evaluate for an occult tibial plateau fracture. Lateral tibial plateau fracture eventually read by radiologist. Discussed with the patient given her poor pain control and need for dialysis will bring into the hospital for further care and orthopedic consultation. Deferred calling orthopedics until we have the definitive CT reports of the fracture but in any event we will likely need dialysis this morning and the hospitalist will see her to allow this to be set up. DIAGNOSIS: Fall, right tibial fracture, end-stage renal disease on dialysis, hyperglycemia due to type 2 diabetes DISPOSITION: Hospitalist will evaluate Patient was agreeable with this plan. Past Med/Surg History Problem List Closed right tibial fracture (Acute) ESRD (end stage renal disease) on dialysis (Acute) Fall (Acute) Colon polyps S/P knee surgery (Chronic) DVT prophylaxis Anxiety Anemia Upper GI bleed (Acute) Hematemesis with nausea (Acute) Encounter for pre-operative examination Gastric ulcer COVID-19 (Acute) Acute dyspnea (Acute) Bilateral leg weakness (Acute) Anemia (Acute) ESRD (end stage renal disease) on dialysis (Acute) Ambulatory dysfunction (Acute) Back pain (Acute) Tremor Obesity ESRD (end stage renal disease) on dialysis (Acute) Fri/Fri/Fri at [facility]. Pacemaker SSS [employer] follows with dr wiggins Chronic diastolic CHF (congestive heart failure) Depression Hypothyroidism SSS (sick sinus syndrome) Pt admitted for elective pacemaker due to SSS. She underwent procedure without any complications. Monitored over night and discharged home. MINISTERIO on CPAP (Chronic) MDD (major depressive disorder) (Chronic) HLD (hyperlipidemia) (Chronic) HTN (hypertension) (Chronic) Diabetes mellitus, type II (Chronic) IDDM H/O esophagogastroduodenoscopy (Chronic) Medical History Anxiety Chronic back pain Chronic diastolic CHF (congestive heart failure) Degenerative disc disease Depression Diabetes mellitus, type II IDDM Endometrial carcinoma (02/23/13) "S/P hysterectomy " ESRD (end stage renal disease) on dialysis Fri/Fri/Fri at [facility]. GERD (gastroesophageal reflux disease) Hiatal hernia History of anesthesia reaction when had port inserted needed more medication and could feel everything History of anesthesia reaction woke up during hysterectomy in 1995 History of melanoma hx - posterior left calf and right arm HLD (hyperlipidemia) HTN (hypertension) Hypothyroidism MDD (major depressive disorder) Obesity MINISTERIO on CPAP Osteoarthritis Pacemaker SSS [employer]tr[employer] follows with dr wiggins Peripheral neuropathy bilateral legs/feet Post traumatic stress disorder SSS (sick sinus syndrome) Pt admitted for elective pacemaker due to SSS. She underwent procedure without any complications. Monitored over night and discharged home. Surgical History H/O esophagogastroduodenoscopy H/O hernia repair H/O radical excision of skin lesion melanoma H/O umbilical hernia repair open (~November 2022 [facility]) --> went to [facility] for rehab therapy for about 2 weeks. History of adenoidectomy History of cataract surgery bilateral History of cholecystectomy History of colonoscopy History of tonsillectomy History of vitrectomy Hx of cardiac cath "2012, negative for CAD " Hx of gastric bypass S/P arteriovenous (AV) fistula creation Right arm S/P cardiac pacemaker procedure medtronic device, last checked ~2 months ago. Follows with Dr Stevenson S/P dialysis catheter insertion right side of chest (since removed) S/P left knee arthroscopy S/P right knee arthroscopy S/P JERSEY-BSO Family History Other Colonic polyp GERD (gastroesophageal reflux disease) No family history of adverse response to anesthesia Social History Smoking Status: Never smoker Second Hand Exposure: No; Do You Dip or Chew Tobacco: No; Hx Alcohol Use: Yes Alcohol type: wine Hx Substance Use: No Preferred Language: Bengali Communication Ability: Effective Field Recruiter Required: No Beliefs That Will Affect Care: None marital status: Current Living Situation: Spouse Current Living Situation Comment: lives with Feels Safe at Home: Yes Assistive Devices: None Allergies Allergies Allergy/AdvReac Type Severity Reaction Status Date / Time CHIDI Inhibitors AdvReac Mild COUGH Verified 02/21/23 10:02 Home Meds Home Medications Medication Instructions Recorded Confirmed amlodipine 5 mg tablet 5 mg PO QAM 03/26/22 01/09/24 aspirin 81 mg chewable tablet 81 mg PO HS 03/26/22 01/09/24 atorvastatin 40 mg tablet 40 mg PO 03/26/22 01/09/24 carvedilol 12.5 mg tablet 12.5 mg PO AMHS 03/26/22 01/09/24 cholecalciferol (vitamin D3) 25 25 mcg PO PM 03/26/22 01/09/24 mcg (1,000 unit) tablet (Vitamin D3) citalopram 40 mg tablet 20 mg PO QAM 03/26/22 01/09/24 cyanocobalamin (vitamin B-12) 1,000 mcg IM Q90D 03/26/22 01/09/24 1,000 mcg/mL injection solution gabapentin 600 mg tablet 300 mg PO HS 03/26/22 01/09/24 insulin glargine 100 unit/mL (3 16 unit subcut QAM 03/26/22 01/09/24 mL) subcutaneous pen (Lantus Solostar U-100 Insulin) levothyroxine 100 mcg tablet 100 mcg PO QAM 03/26/22 01/09/24 melatonin 10 mg tablet 10 mg PO HS 03/26/22 01/09/24 omeprazole 40 mg capsule,delayed 20 mg PO PM 03/26/22 01/09/24 release polyethylene glycol 3350 17 gram 17 g PO DAILY PRN Constipation 03/26/22 01/09/24 oral powder packet vit B complx, C-iron 8 mg-folic 1 tab PO PM 03/26/22 01/09/24 acid 800 mcg-D3 1,000 unit-zinc tablet (ProRenal) calcium acetate 667 mg tablet 2,001 mg PO TIDM 11/06/22 01/09/24 hydralazine 100 mg tablet 100 mg PO TID 11/06/22 01/09/24 Results & Data (ED) Vital Signs Vital Signs - 24 hr 01/09/24 02:08 01/09/24 02:13 01/09/24 03:50 Temperature 36.8 C Temperature Source Oral Pulse Rate 80 64 Pulse Rate [Finger] 62 Pulse Rhythm Regular Regular Pulse Rhythm [Finger] Regular Pulse Strength Normal Pulse Strength [Finger] Normal Respiratory Rate 16 16 16 Respiratory Effort / Characteristics Non-Labored Non-Labored Respiratory Depth Normal Normal Respiratory Pattern Regular Regular Blood Pressure 155/97 H Blood Pressure [Left Arm] 135/62 Blood Pressure Mean 116 Blood Pressure Mean [Left Arm] 86 Blood Pressure Position Lying Blood Pressure Position [Left Arm] Lying Pulse Oximetry 97 95 96 Oxygen Delivery Method Room Air Room Air Room Air Sepsis Recent Fever Within 48 Hours No Sepsis New/Unexplained Change in Mental Status No Sepsis Action Taken by Nursing No Action Required 01/09/24 05:06 Temperature Temperature Source Pulse Rate Pulse Rate [Finger] 65 Pulse Rhythm Pulse Rhythm [Finger] Regular Pulse Strength Pulse Strength [Finger] Normal Respiratory Rate 16 Respiratory Effort / Characteristics Non-Labored Respiratory Depth Normal Respiratory Pattern Blood Pressure Blood Pressure [Left Arm] 145/77 H Blood Pressure Mean Blood Pressure Mean [Left Arm] 99 Blood Pressure Position Blood Pressure Position [Left Arm] Pulse Oximetry 96 Oxygen Delivery Method Room Air Sepsis Recent Fever Within 48 Hours Sepsis New/Unexplained Change in Mental Status Sepsis Action Taken by Nursing Laboratory Data 01/09/24 02:30 01/09/24 02:30 Lab Results 01/09/24 Range/Units 02:30 WBC 13.12 H (4.8-10.8) K/ul RBC 3.56 L (4.20-5.40) M/uL Hgb 10.9 L (12.0-16.0) g/dl Hct 34.9 L (37.0-47.0) % MCV 98.0 (80.0-100.0) fL MCH 30.6 (25.0-34.0) pg MCHC 31.2 L (32.0-36.0) g/dL RDW Std Deviation 54.9 H (36.4-46.3) fL RDW Coeff of Leatha 15.4 H (11.5-14.5) % Plt Count 267 (130-400) K/uL MPV 10.1 (9.4-12.4) fL Immature Gran % (Auto) 0.5 % Neut % (Auto) 68.6 % Lymph % (Auto) 19.5 % Coleman % (Auto) 8.8 % Eos % (Auto) 1.8 % Baso % (Auto) 0.8 % Neut # (Auto) 9.01 H (1.40-6.50) K/uL Lymph # (Auto) 2.56 (1.20-3.40) K/uL Coleman # (Auto) 1.15 H (0.11-0.59) K/uL Eos # (Auto) 0.23 (0.00-0.50) K/uL Baso # (Auto) 0.10 (0.00-0.20) K/uL Immature Gran # (Auto) 0.07 (0.01-0.20) K/uL PT 10.0 (9.0-12.0) Seconds INR 0.9 (0.9-1.1) Sodium 130 L (136-145) mmol/L Potassium 5.3 H (3.5-5.1) mmol/L Chloride 96 L (98-107) mmol/L Carbon Dioxide 21 (21-32) mmol/L Anion Gap 13 H (3-11) BUN 38 H (6-23) mg/dl Creatinine 6.00 H* (0.6-1.2) mg/dl Est Cr Clr Drug Dosing 10.8 ml/min Est GFR ( Amer) 7.8 ml/min Est GFR (Non-Af Amer) 6.8 ml/min BUN/Creatinine Ratio 6.3 L (10-20) Glucose 303 H* (70-99(Fasting)) mg/dl Calcium 9.7 (8.6-10.3) mg/dl Total Bilirubin 0.6 (0.2-1.0) mg/dl AST 26 (13-39) U/L ALT 22 (7-52) U/L Alkaline Phosphatase 117 H (34-104) U/L Total Creatine Kinase 45 (26-192) U/L Total Protein 7.2 (6.0-8.3) gm/dl Albumin 4.0 (3.4-5.0) gm/dl Globulin 3.2 (2.5-4.0) gm/dl Albumin/Globulin Ratio 1.3 (0.9-2) TSH 3.205 (0.300-4.500) uIu/ml Administered Medications Discontinued Medications Fentanyl Citrate (Fentanyl Citrate Pf 100 Mcg/2 Ml Vial) 50 mcg IV NOW STA Stop: 01/09/24 02:03 Last Admin: 01/09/24 02:33 Dose: 50 mcg Documented By: KG Fentanyl Citrate (Fentanyl Citrate Pf 100 Mcg/2 Ml Vial) 50 mcg IV NOW STA Stop: 01/09/24 03:26 Last Admin: 01/09/24 03:53 Dose: 50 mcg Documented By: KG Acetaminophen (Ofirmev) 1,000 mg in 100 mls @ 400 mls/hr IV NOW STA Stop: 01/09/24 04:43 Last Infusion: 01/09/24 05:12 Dose: Infused Documented By: Admin: 01/09/24 04:43 Dose: 400 mls/hr Documented By: KG Imaging Data Radiologist's Impression: Cervical Spine CT 01/09/24 02:02 Exam(s): CT C SPINE EXAM: CT Cervical Spine Without Intravenous Contrast CLINICAL HISTORY: Reason for exam: fall. TECHNIQUE: Axial computed tomography images of the cervical spine without intravenous contrast. CTDI is 58.29 mGy and DLP is 2645.97 mGy-cm. Automated exposure control was utilized for the study. A dose lowering technique was utilized adhering to the principles of ALARA. COMPARISON: No relevant prior studies available. FINDINGS: Vertebrae: Mild degenerative changes. Prominent Schmorl's node C6 inferior endplate. No acute fracture. Discs/spinal canal/neural foramina: No acute findings. No spinal canal stenosis. Soft tissues: Unremarkable. IMPRESSION: No acute findings in the cervical spine. Electronically signed by: Radha Wellington M.D. 01/09/24 05:[address] 01/09/24 02:02 Exam(s): CT HEAD Without Contrast EXAM: CT Head Without Intravenous Contrast CLINICAL HISTORY: Reason for exam: fall. TECHNIQUE: Axial computed tomography images of the head/brain without intravenous contrast. CTDI is 58.29 mGy and DLP is 2645.97 mGy-cm. Automated exposure control was utilized for the study. A dose lowering technique was utilized adhering to the principles of ALARA. COMPARISON: CT Head dated 11/06/22 FINDINGS: Brain: Volume loss with prominent ventricles and sulci. Periventricular white matter hypoattenuation likely reflects chronic small vessel disease. No hemorrhage. Ventricles: See above. Bones/joints: Unremarkable. No acute fracture. Soft tissues: Unremarkable. Sinuses: Unremarkable as visualized. No acute sinusitis. Mastoid air cells: Unremarkable as visualized. No mastoid effusion. Orbits: Bilateral intraocular lens implants. IMPRESSION: No acute findings in the head/brain. Electronically signed by: Radha Wellington M.D. 01/09/24 05:[address] 01/09/24 02:36 Exam(s): CT EXTREMITY RIGHT LOWER Without Contrast EXAM: CT Right Lower Extremity Without Intravenous Contrast CLINICAL HISTORY: Reason for exam: fall, pain. TECHNIQUE: Axial computed tomography images of the right lower extremity without intravenous contrast. CTDI is 58.29 mGy and DLP is 2645.97 mGy-cm. Automated exposure control was utilized for the study. A dose lowering technique was utilized adhering to the principles of ALARA. COMPARISON: No relevant prior studies available. FINDINGS: Bones/joints: Right lateral tibial plateau fracture with minimal depression. Involves the lateral tibial spine. Moderate lipohemarthrosis, partially visualized. No dislocation. Soft tissues: Mild soft tissue swelling Vasculature: Marked arterial calcifications throughout the visualized arteries of the lower leg. IMPRESSION: 1. Right lateral tibial plateau fracture with minimal depression. Involves the lateral tibial spine. 2. Moderate lipohemarthrosis, partially visualized. Electronically signed by: Radha Wellington M.D. 01/09/24 05:57 AM Discharge Plan Visit Data Chief Complaint: Fall Stated Complaint: FALL ED Provider: Red Love Discharge Problem: Fall, ESRD (end stage renal disease) on dialysis, Closed right tibial fracture Forms Stand Alone Forms: My [facility] Share0 Prescriptions Prescriptions: No Action ProRenal 8 mg iron-800 mcg-1,000 unit tablet 1 tab PO PM atorvastatin 40 mg tablet 40 mg PO HS gabapentin 600 mg tablet 300 mg PO HS carvedilol 12.5 mg tablet 12.5 mg PO AMHS citalopram 40 mg tablet 20 mg PO QAM polyethylene glycol 3350 17 gram powder in packet 17 g PO DAILY PRN (Reason: Constipation) amlodipine 5 mg tablet 5 mg PO QAM omeprazole 40 mg capsule,delayed release(DR/EC) 20 mg PO PM levothyroxine 100 mcg tablet 100 mcg PO QAM cyanocobalamin (vitamin B-12) 1,000 mcg/mL Solution 1,000 mcg IM Q90D aspirin 81 mg Tablet,Chewable 81 mg PO HS cholecalciferol (vitamin D3) [Vitamin D3] 25 mcg (1,000 unit) Tablet 25 mcg PO PM insulin glargine [Lantus Solostar U-100 Insulin] 100 unit/mL (3 mL) Insulin Pen 16 unit SUBCUT QAM melatonin 10 mg Tablet 10 mg PO HS hydralazine 100 mg tablet 100 mg PO TID calcium acetate 667 mg Tablet 2,001 mg PO TIDM Rx Instructions: Take 3 capsules by mouth with each meal and 2 capsules by mouth with each snack Referrals Referrals: Luis Fernando Rojas MD [Primary Care Provider] -
[2024-01-09] MEDS: fentaNYL citrate PF 100 MCG/2 ML VIAL IV STA ×3 (02:33→08:02)
[2024-01-09 02:51] LABS: Basophils % (auto) 0.8 %; Eosinophils # (auto) 0.23 K/uL (0.00-0.50); Eosinophils % (auto) 1.8 %; Hematocrit (blood only) 34.9 % (37.0-47.0); Hemoglobin 10.9 g/dl (12.0-16.0); Immature Granulocytes # (auto) 0.07 K/uL (0.01-0.20); Immature Granulocytes % (auto) 0.5 %; Lymphocytes # (auto) 2.56 K/uL (1.20-3.40); Lymphocytes % (auto) 19.5 %; Mean Corpuscular Hemoglobin 30.6 pg (25.0-34.0); Mean Corpuscular Hgb Conc 31.2 g/dL (32.0-36.0); Mean Platelet Volume 10.1 fL (9.4-12.4); Monocytes # (auto) 1.15 K/uL (0.11-0.59); Monocytes % (auto) 8.8 %; Neutrophils # (auto) 9.01 K/uL (1.40-6.50); Neutrophils % (auto) 68.6 %; Platelet Count 267 K/uL (130-400); RDW Coefficient of Variation 15.4 % (11.5-14.5); RDW Standard Deviation 54.9 fL (36.4-46.3); Red Blood Count 3.56 M/uL (4.20-5.40); White Blood Count 13.12 K/ul (4.8-10.8)
[2024-01-09 03:14] LABS: INR 0.9 (0.9-1.1)
[2024-01-09 03:28] LABS: Albumin Globulin Ratio 1.3 (0.9-2); BUN Creatinine Ratio 6.3 (10-20); Bilirubin,Total 0.6 mg/dl (0.2-1.0); Calcium 9.7 mg/dl (8.6-10.3); Creatinine Clr Calc Pharmacy 10.8 ml/min; Est GFR (African American) 7.8 ml/min; Est GFR (Non-African American) 6.8 ml/min; Globulin 3.2 gm/dl (2.5-4.0); Potassium 5.3 mmol/L (3.5-5.1); Total Protein 7.2 gm/dl (6.0-8.3)
[2024-01-09] MEDS: ACETAMINOPHEN 1,000 MG/100 ML VIAL IV STA (04:43)
[2024-01-09] MEDS ORDERED: GLUCOSE 40% GEL 15 GM TUBE PO PRN (04:47)
[2024-01-09] MEDS ORDERED: GLUCOSE 10 TAB/TUBE PO PRN (04:47)
[2024-01-09] MEDS ORDERED: CARBOHYDRATES FOR HYPOGLYCEMIA PO PRN (04:47)
[2024-01-09] MEDS ORDERED: GLUCAGON FOR INJ 1 MG VIAL SQ PRN (04:47)
[2024-01-09] MEDS ORDERED: DEXTROSE 50% 50 ML SYRINGE IV PRN (04:47)
--- NOTE | 2024-01-09 05:24 | CT Scan Report ---
Exam(s): CT HEAD Without Contrast EXAM: CT Head Without Intravenous Contrast CLINICAL HISTORY: Reason for exam: fall. TECHNIQUE: Axial computed tomography images of the head/brain without intravenous contrast. CTDI is 58.29 mGy and DLP is 2645.97 mGy-cm. Automated exposure control was utilized for the study. A dose lowering technique was utilized adhering to the principles of ALARA. COMPARISON: CT Head dated 11/06/22 FINDINGS: Brain: Volume loss with prominent ventricles and sulci. Periventricular white matter hypoattenuation likely reflects chronic small vessel disease. No hemorrhage. Ventricles: See above. Bones/joints: Unremarkable. No acute fracture. Soft tissues: Unremarkable. Sinuses: Unremarkable as visualized. No acute sinusitis. Mastoid air cells: Unremarkable as visualized. No mastoid effusion. Orbits: Bilateral intraocular lens implants. IMPRESSION: No acute findings in the head/brain. Electronically signed by: aRdha Wellington M.D. 01/09/24 05:23 AM
--- NOTE | 2024-01-09 05:27 | CT Scan Report ---
Exam(s): CT C SPINE EXAM: CT Cervical Spine Without Intravenous Contrast CLINICAL HISTORY: Reason for exam: fall. TECHNIQUE: Axial computed tomography images of the cervical spine without intravenous contrast. CTDI is 58.29 mGy and DLP is 2645.97 mGy-cm. Automated exposure control was utilized for the study. A dose lowering technique was utilized adhering to the principles of ALARA. COMPARISON: No relevant prior studies available. FINDINGS: Vertebrae: Mild degenerative changes. Prominent Schmorl's node C6 inferior endplate. No acute fracture. Discs/spinal canal/neural foramina: No acute findings. No spinal canal stenosis. Soft tissues: Unremarkable. IMPRESSION: No acute findings in the cervical spine. Electronically signed by: Radha Wellington M.D. 01/09/24 05:25 AM
[2024-01-09 05:31] LABS: Thyroid Stimulating Hormone 3.205 uIu/ml (0.300-4.500)
--- NOTE | 2024-01-09 05:42 | History & Physical Report ---
Date of Service January 09, 2024 Assessment & Plan (1) Hyperkalemia: Plan: History ESRD on HD Traumatic right tibia fracture chronic diastolic heart failure (EF 60 to 65%, TTE 2020), euvolemic SSS status post PPM, paced rhythm MINISTERIO on CPAP, pulmonary hypertension DM2 on insulin requiring, reasonable control as of recent hemoglobin A1c of 7.8 last November 2022 hypothyroidism, euthyroid as of today's TSH chronic hyponatremia GERD, stable on regimen history gastric bypass endometrial cancer status post surgery melanoma status post surgery chronic anemia, hemoglobin at baseline Medical telemetry Bicarb 1 dose now for hyperkalemia, facilitate morning insulin Nephrology consult Re: Dialysis management Orthopedics consult Re: Right tibia fracture basal bolus insulin, ISS BG goal 1 10-1 40, carb count coverage, update hemoglobin A1c DVT prophylaxis. Heparin subcu Full code Patient requesting updates providers. Mr. Zhen Finley, contact #[phone]. Text document was generated using [employer] voice recognition software. It may contain grammatical or spelling errors. Kindly contact undersigned for clarification of any documentation item in question. History of Present Illness Chief Complaint: Fall, right leg pain Primary Care Provider: Luis Fernando Rojas MD History obtained from patient, family, and records. Medical history significant for chronic diastolic heart failure (EF 60 to 65%, TTE 2020), SSS status post PPM, MINISTERIO on CPAP, pulmonary hypertension, ESRD on HD, DM2 on insulin requiring, hypothyroidism, chronic hyponatremia, GERD, gastroparesis, history gastric bypass, endometrial cancer status post surgery, melanoma status post surgery, chronic anemia (baseline hemoglobin 9- 10), mood disorder. Last confinement October 2022 for leg weakness attributed to neuropathy. Patient slipped in camper last night landing on right leg. Slight head trauma without headache, LOC. Achy right lower leg pain worse on movement. No chest pain, no SOB. EMS called to patient's camper by . 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 Allergies Allergy/AdvReac Type Severity Reaction Status Date / Time CHIDI Inhibitors AdvReac Mild COUGH Verified 02/21/23 10:02 Home Medications Medication Instructions Recorded Confirmed Type amlodipine 5 mg tablet 5 mg PO QAM 03/26/22 01/09/24 History aspirin 81 mg chewable tablet 81 mg PO HS 03/26/22 01/09/24 History atorvastatin 40 mg tablet 40 mg PO HS 03/26/22 01/09/24 History carvedilol 12.5 mg tablet 12.5 mg PO AMHS 03/26/22 01/09/24 History cholecalciferol (vitamin D3) 25 25 mcg PO PM 03/26/22 01/09/24 History mcg (1,000 unit) tablet (Vitamin D3) citalopram 40 mg tablet 20 mg PO QAM 03/26/22 01/09/24 History cyanocobalamin (vitamin B-12) 1,000 mcg IM Q90D 03/26/22 01/09/24 History 1,000 mcg/mL injection solution gabapentin 600 mg tablet 300 mg PO HS 03/26/22 01/09/24 History insulin glargine 100 unit/mL (3 16 unit subcut QA 03/26/22 01/09/24 History mL) subcutaneous pen (Lantus Solostar U-100 Insulin) levothyroxine 100 mcg tablet 100 mcg PO QAM 03/26/22 01/09/24 History melatonin 10 mg tablet 10 mg PO HS 03/26/22 01/09/24 History omeprazole 40 mg capsule,delayed 20 mg PO PM 03/26/22 01/09/24 History release polyethylene glycol 3350 17 gram 17 g PO DAILY PRN Constipation 03/26/22 01/09/24 History oral powder packet vit B complx, C-iron 8 mg-folic 1 tab PO PM 03/26/22 01/09/24 History acid 800 mcg-D3 1,000 unit-zinc tablet (ProRenal) calcium acetate 667 mg tablet 2,001 mg PO TIDM 11/06/22 01/09/24 History hydralazine 100 mg tablet 100 mg PO TID 11/06/22 01/09/24 History RSV vac, preF A and preF B(PF) 120 01/09/24 01/09/24 History mcg/0.5 mL IM solution (Abrysvo) diclofenac sodium 1 % topical gel 2 g topical QID 01/09/24 01/09/24 History Past Med/Surg History Problem List Hyperkalemia Fracture of right tibial plateau Closed right tibial fracture (Acute) ESRD (end stage renal disease) on dialysis (Acute) Fall (Acute) Colon polyps S/P knee surgery (Chronic) DVT prophylaxis Anxiety Anemia Upper GI bleed (Acute) Hematemesis with nausea (Acute) Encounter for pre-operative examination Gastric ulcer COVID-19 (Acute) Acute dyspnea (Acute) Bilateral leg weakness (Acute) Anemia (Acute) Ambulatory dysfunction (Acute) Back pain (Acute) Tremor Obesity ESRD (end stage renal disease) on dialysis (Acute) Mon/Fri/Fri at [facility] in [place]. Pacemaker SSS Medtronic follows with dr rosalie Wilsk diastolic CHF (congestive heart failure) Depression Hypothyroidism SSS (sick sinus syndrome) Pt admitted for elective pacemaker due to SSS. She underwent procedure without any complications. Monitored over night and discharged home. MINISTERIO on CPAP (Chronic) MDD (major depressive disorder) (Chronic) HLD (hyperlipidemia) (Chronic) HTN (hypertension) (Chronic) Diabetes mellitus, type II (Chronic) IDDM H/O esophagogastroduodenoscopy (Chronic) Medical History ESRD (end stage renal disease) on dialysis Peripheral neuropathy bilateral legs/feet Anxiety History of anesthesia reaction woke up during hysterectomy in 1995 Hiatal hernia Osteoarthritis Degenerative disc disease Chronic back pain Post traumatic stress disorder History of anesthesia reaction when had port inserted needed more medication and could feel everything GERD (gastroesophageal reflux disease) Surgical History History of colonoscopy S/P left knee arthroscopy S/P right knee arthroscopy H/O radical excision of skin lesion melanoma S/P cardiac pacemaker procedure medtronic device, last checked ~2 months ago[address] Follows with Dr Stevenson S/P arteriovenous (AV) fistula creation Right arm History of vitrectomy History of cataract surgery bilateral History of adenoidectomy History of tonsillectomy H/O umbilical hernia repair open (~November 2022 [facility]) --> went to [facility] for rehab therapy for about 2 weeks. S/P dialysis catheter insertion right side of chest (since removed) S/P J[place]SE[place]-BSO H/O hernia repair Hx of gastric bypass History of cholecystectomy Hx of cardiac cath "2012, negative for CAD " Family History Other Colonic polyp GERD (gastroesophageal reflux disease) No family history of adverse response to anesthesia Social History Smoking Status: Never smoker Second Hand Exposure: No; Do You Dip or Chew Tobacco: No; Hx Alcohol Use: No Hx Substance Use: No Preferred Language: Kiswahili Communication Ability: Effective Building Stonecutter Required: No Beliefs That Will Affect Care: None marital status: Current Living Situation: Spouse Current Living Situation Comment: lives with Feels Safe at Home: Yes Safety Concerns: Feels Safe At This Time Assistive Devices: Walker Review of Systems Review of Systems: As per HPI, all other systems reviewed and negative Physical Exam Physical Exam: GENERAL: Comfortable, pleasant, morbidly obese, no respiratory distress SKIN: Pallor, warm HEENT: Pale palpebral conjunctivae, no ptosis, dry buccal mucosa NECK : Supple, short neck, no tenderness CHEST : CTA, no tenderness HEART : RRR, no obvious murmurs ABDOMEN: Some distention, nontender EXTREMITIES : Tender RLE swelling, no other conspicuous deformities noted NEUROLOGIC : Coherent, no facial asymmetry, no other gross focality Results & Data Results & Data Vital Signs (Past 12 Hours) Vital Signs Temp Pulse Pulse Resp BP BP Pulse Ox 01/09/24 05:06 65 16 145/77 H 96 01/09/24 03:50 62 16 135/62 96 01/09/24 02:13 64 16 95 01/09/24 02:08 36.8 C 80 16 155/97 H 97 O2 Del Method 01/09/24 05:06 Room Air 01/09/24 03:50 Room Air 01/09/24 02:13 Room Air 01/09/24 02:08 Room Air Laboratory Results Laboratory Results WBC 13.12 K/ul (4.8-10.8) H 01/09/24 02:30 RBC 3.56 M/uL (4.20-5.40) L 01/09/24 02:30 Hgb 10.9 g/dl (12.0-16.0) L 01/09/24 02:30 Hct 34.9 % (37.0-47.0) L 01/09/24 02:30 MCV 98.0 fL (80.0-100.0) 01/09/24 02:30 MCH 30.6 pg (25.0-34.0) 01/09/24 02:30 MCHC 31.2 g/dL (32.0-36.0) L 01/09/24 02:30 RDW Std Deviation 54.9 fL (36.4-46.3) H 01/09/24 02:30 RDW Coeff of Leatha 15.4 % (11.5-14.5) H 01/09/24 02:30 Plt Count 267 K/uL (130-400) 01/09/24 02:30 MPV 10.1 fL (9.4-12.4) 01/09/24 02:30 Immature Gran % (Auto) 0.5 % 01/09/24 02:30 Neut % (Auto) 68.6 % 01/09/24 02:30 Lymph % (Auto) 19.5 % 01/09/24 02:30 [place] % (Auto) 8.8 % 01/09/24 02:30 Eos % (Auto) 1.8 % 01/09/24 02:30 Baso % (Auto) 0.8 % 01/09/24 02:30 Neut # (Auto) 9.01 K/uL (1.40-6.50) H 01/09/24 02:30 Lymph # (Auto) 2.56 K/uL (1.20-3.40) 01/09/24 02:30 [place] # (Auto) 1.15 K/uL (0.11-0.59) H 01/09/24 02:30 Eos # (Auto) 0.23 K/uL (0.00-0.50) 01/09/24 02:30 Baso # (Auto) 0.10 K/uL (0.00-0.20) 01/09/24 02:30 Immature Gran # (Auto) 0.07 K/uL (0.01-0.20) 01/09/24 02:30 PT 10.0 Seconds (9.0-12.0) 01/09/24 02:30 INR 0.9 (0.9-1.1) 01/09/24 02:30 Sodium 130 mmol/L (136-145) L 01/09/24 02:30 Potassium 5.3 mmol/L (3.5-5.1) H 01/09/24 02:30 Chloride 96 mmol/L (98-107) L 01/09/24 02:30 Carbon Dioxide 21 mmol/L (21-32) 01/09/24 02:30 Anion Gap 13 (3-11) H 01/09/24 02:30 BUN 38 mg/dl (6-23) H 01/09/24 02:30 Creatinine 6.00 mg/dl (0.6-1.2) H* 01/09/24 02:30 Est Cr Clr Drug Dosing 10.8 ml/min 01/09/24 02:30 Est GFR ( Amer) 7.8 ml/min 01/09/24 02:30 Est GFR (Non-Af Amer) 6.8 ml/min 01/09/24 02:30 BUN/Creatinine Ratio 6.3 (10-20) L 01/09/24 02:30 Glucose 303 mg/dl (70-99(Fasting)) H* 01/09/24 02:30 Calcium 9.7 mg/dl (8.6-10.3) 01/09/24 02:30 Total Bilirubin 0.6 mg/dl (0.2-1.0) 01/09/24 02:30 AST 26 U/L (13-39) 01/09/24 02:30 ALT 22 U/L (7-52) 01/09/24 02:30 Alkaline Phosphatase 117 U/L (34-104) H 01/09/24 02:30 Total Creatine Kinase 45 U/L (26-192) 01/09/24 02:30 Total Protein 7.2 gm/dl (6.0-8.3) 01/09/24 02:30 Albumin 4.0 gm/dl (3.4-5.0) 01/09/24 02:30 Globulin 3.2 gm/dl (2.5-4.0) 01/09/24 02:30 Albumin/Globulin Ratio 1.3 (0.9-2) 01/09/24 02:30 TSH 3.205 uIu/ml (0.300-4.500) 01/09/24 02:[address] 01/09/24 02:02 Exam(s): CT C SPINE EXAM: CT Cervical Spine Without Intravenous Contrast CLINICAL HISTORY: Reason for exam: fall. TECHNIQUE: Axial computed tomography images of the cervical spine without intravenous contrast. CTDI is 58.29 mGy and DLP is 2645.97 mGy-cm. Automated exposure control was utilized for the study. A dose lowering technique was utilized adhering to the principles of ALARA. COMPARISON: No relevant prior studies available. FINDINGS: Vertebrae: Mild degenerative changes. Prominent Schmorl's node C6 inferior endplate. No acute fracture. Discs/spinal canal/neural foramina: No acute findings. No spinal canal stenosis. Soft tissues: Unremarkable. IMPRESSION: No acute findings in the cervical spine. Electronically signed by: Radha Wellington M.D. 01/09/24 05:[address] 01/09/24 02:02 Exam(s): CT HEAD Without Contrast EXAM: CT Head Without Intravenous Contrast CLINICAL HISTORY: Reason for exam: fall. TECHNIQUE: Axial computed tomography images of the head/brain without intravenous contrast. CTDI is 58.29 mGy and DLP is 2645.97 mGy-cm. Automated exposure control was utilized for the study. A dose lowering technique was utilized adhering to the principles of ALARA. COMPARISON: CT Head dated 11/06/22 FINDINGS: Brain: Volume loss with prominent ventricles and sulci. Periventricular white matter hypoattenuation likely reflects chronic small vessel disease. No hemorrhage. Ventricles: See above. Bones/joints: Unremarkable. No acute fracture. Soft tissues: Unremarkable. Sinuses: Unremarkable as visualized. No acute sinusitis. Mastoid air cells: Unremarkable as visualized. No mastoid effusion. Orbits: Bilateral intraocular lens implants. IMPRESSION: No acute findings in the head/brain. Electronically signed by: Radha Wellington M.D. 01/09/24 05:23 AM Diagnostic Findings Chest x-ray as per my interpretation, cardiomegaly , pacemaker EKG as per my interpretation : Rate 65, paced rhythm
--- NOTE | 2024-01-09 05:58 | CT Scan Report ---
Exam(s): CT EXTREMITY RIGHT LOWER Without Contrast EXAM: CT Right Lower Extremity Without Intravenous Contrast CLINICAL HISTORY: Reason for exam: fall, pain. TECHNIQUE: Axial computed tomography images of the right lower extremity without intravenous contrast. CTDI is 58.29 mGy and DLP is 2645.97 mGy-cm. Automated exposure control was utilized for the study. A dose lowering technique was utilized adhering to the principles of ALARA. COMPARISON: No relevant prior studies available. FINDINGS: Bones/joints: Right lateral tibial plateau fracture with minimal depression. Involves the lateral tibial spine. Moderate lipohemarthrosis, partially visualized. No dislocation. Soft tissues: Mild soft tissue swelling Vasculature: Marked arterial calcifications throughout the visualized arteries of the lower leg. IMPRESSION: 1. Right lateral tibial plateau fracture with minimal depression. Involves the lateral tibial spine. 2. Moderate lipohemarthrosis, partially visualized. Electronically signed by: Radha Wellington M.D. 01/09/24 05:57 AM
[2024-01-09] MEDS: SODIUM BICARB 8.4% INJ 50 MEQ/50 ML SYR IV STA (06:24)
[2024-01-09] MEDS: oxyCODONE HCL IR 5 MG TAB (IMMEDIATE RELEASE) PO PRN (06:32)
[2024-01-09] MEDS: LANTUS PER UNIT CHARGE SQ STA (06:36)
[2024-01-09] MEDS: INSULIN ASPART PER UNIT CHARGE SC SCH (06:39)
[2024-01-09] MEDS ORDERED: POLYETHYLENE (MIRALAX) 17 GM PACK PO PRN (06:46)
--- NOTE | 2024-01-09 06:59 | XRay Report ---
XR tibia fibula RT 2V, XR knee RT 1 or 2V routine HISTORY: 63 years-old Female fall acute head trauma status post fall COMPARISON: None TECHNIQUE: 2 views of the right tibia and fibula with 2 views of the right knee FINDINGS: TIBIA/FIBULA: Arterial calcifications. Mild diffuse soft tissue prominence. Moderate size joint effusion. Osteoarth ritis of the foot and ankle with large calcaneal enthesophytes. KNEE: There is a vertical linear lucency projected over the the mid medullary space of the proximal tibial metadiaphysis, not seen on the lateral view. Mild tricompartmental osteoarthritis with moderate size joint effusion. Arterial calcifications. IMPRESSION: 1. No acute fracture or dislocation identified. 2. Moderate-sized joint effusion. 3. Proximal tibial linear lucency is favored to be artifact. A subtle acute nondisplaced fracture con sidered less likely. ACT 112: Negative or not required by law. The above report was generated using voice recognition software. It may contain grammatical, syntax o r spelling errors. Electronically signed by: Lee Ghosh M.D. 01/09/2024 6:57 AM
[2024-01-09] MEDS ORDERED: CYANOCOBALAMIN 1000 MCG/ML VIAL IM SCH (07:00)
--- NOTE | 2024-01-09 08:02 | XRay Report ---
SINGLE VIEW CHEST CLINICAL HISTORY: Fall. FINDINGS: An AP, portable, upright chest radiograph is compared to study dated 11/06/2022. Correlation is made with chest CT dated 02/23/2013. A 2-lead cardiac pacemaker is unchanged in position. The heart is enlarged and noting atherosclerotic calcification of the thoracic aorta. The pulmonary vasculatur e is noncongested. Chronic interstitial thickening is similar to previous. There is bibasilar scarrin g/atelectasis. The lungs and pleural spaces are otherwise clear. No pneumothorax is seen. The skeleta l structures are osteopenic. The bony thorax is grossly intact. IMPRESSION: 1. Cardiomegaly and cardiac pacemaker without radiographic evidence of congestive failure. 2. No airspace consolidation or large pleural effusion is identified. ACT 112: Negative or not required by law. Electronically signed by: Marco Antonio Martisn M.D. 01/09/2024 8:00 AM
[2024-01-09 08:05] LABS: Estimated Average Glucose 163 mg/dl; Hemoglobin A1C 7.3 % (4.5-5.6)
--- NOTE | 2024-01-09 08:52 | Orthopedic Consultation ---
Date of Service January 09, 2024 Assessment & Plan (1) Fracture of right tibial plateau: Imaging reviewed with Dr. Bravo. Recommend nonoperative management with knee immobilizer to right leg, nonweight bearing, and can follow up with orthopedics as outpatient in 2 weeks. I offered to aspirate her knee today and she would like to proceed with that. Procedure note: Right knee sterilely prepped with alcohol and using aseptic technique 50ml of blood was aspirated from her knee. She tolerated the procedure well. No complications. History of Present Illness Reason for Consultation: . Requesting Physician: . Attending Physician: Álvaro Red MD .Candi is a 63 year old patient with right knee pain. She slipped and fell in her camper at around 1am this morning. She had immediate knee pain. She was [facility] where xray and ct showed a lateral tibia plateau fx. Denies any other complaints. She has had this knee scoped twice in the past. She is scheduled for dialysis today so was admitted to the hospilatist service. Allergies Allergy/AdvReac Type Severity Reaction Status Date / Time CHIDI Inhibitors AdvReac Mild COUGH Verified 02/21/23 10:02 Home Medications Medication Instructions Recorded Confirmed Type amlodipine 5 mg tablet 5 mg PO QAM 03/26/22 01/09/24 History aspirin 81 mg chewable tablet 81 mg PO HS 03/26/22 01/09/24 History atorvastatin 40 mg tablet 40 mg PO HS 03/26/22 01/09/24 History carvedilol 12.5 mg tablet 12.5 mg PO AMHS 03/26/22 01/09/24 History cholecalciferol (vitamin D3) 25 25 mcg PO PM 03/26/22 01/09/24 History mcg (1,000 unit) tablet (Vitamin D3) citalopram 40 mg tablet 20 mg PO QAM 03/26/22 01/09/24 History cyanocobalamin (vitamin B-12) 1,000 mcg IM Q90D 03/26/22 01/09/24 History 1,000 mcg/mL injection solution gabapentin 600 mg tablet 300 mg PO HS 03/26/22 01/09/24 History insulin glargine 100 unit/mL (3 16 unit subcut QAM 03/26/22 01/09/24 History mL) subcutaneous pen (Lantus Solostar U-100 Insulin) levothyroxine 100 mcg tablet 100 mcg PO QAM 03/26/22 01/09/24 History melatonin 10 mg tablet 10 mg PO HS 03/26/22 01/09/24 History omeprazole 40 mg capsule,delayed 20 mg PO PM 03/26/22 01/09/24 History release polyethylene glycol 3350 17 gram 17 g PO DAILY PRN Constipation 03/26/22 01/09/24 History oral powder packet vit B complx, C-iron 8 mg-folic 1 tab PO PM 03/26/22 01/09/24 History acid 800 mcg-D3 1,000 unit-zinc tablet (ProRenal) calcium acetate 667 mg tablet 2,001 mg PO TIDM 11/06/22 01/09/24 History hydralazine 100 mg tablet 100 mg PO TID 11/06/22 01/09/24 History RSV vac, preF A and preF B(PF) 120 01/09/24 01/09/24 History mcg/0.5 mL IM solution (Abrysvo) diclofenac sodium 1 % topical gel 2 g topical QID 01/09/24 01/09/24 History Past Med/Surg History Problem List Hyperkalemia Fracture of right tibial plateau Closed right tibial fracture (Acute) ESRD (end stage renal disease) on dialysis (Acute) Fall (Acute) Colon polyps S/P knee surgery (Chronic) DVT prophylaxis Anxiety Anemia Upper GI bleed (Acute) Hematemesis with nausea (Acute) Encounter for pre-operative examination Gastric ulcer COVID-19 (Acute) Acute dyspnea (Acute) Bilateral leg weakness (Acute) Anemia (Acute) Ambulatory dysfunction (Acute) Back pain (Acute) Tremor Obesity ESRD (end stage renal disease) on dialysis (Acute) Mon/Wed/Fri at [facility] in [place]. Pacemaker SSS Medtronic follows with dr wiggins Chronic diastolic CHF (congestive heart failure) Depression Hypothyroidism SSS (sick sinus syndrome) Pt admitted for elective pacemaker due to SSS. She underwent procedure without any complications. Monitored over night and discharged home. MINISTERIO on CPAP (Chronic) MDD (major depressive disorder) (Chronic) HLD (hyperlipidemia) (Chronic) HTN (hypertension) (Chronic) Diabetes mellitus, type II (Chronic) IDDM H/O esophagogastroduodenoscopy (Chronic) Medical History ESRD (end stage renal disease) on dialysis Peripheral neuropathy bilateral legs/feet Anxiety History of anesthesia reaction woke up during hysterectomy in 1995 Hiatal hernia Osteoarthritis Degenerative disc disease Chronic back pain Post traumatic stress disorder History of anesthesia reaction when had port inserted needed more medication and could feel everything GERD (gastroesophageal reflux disease) Surgical History History of colonoscopy S/P left knee arthroscopy S/P right knee arthroscopy H/O radical excision of skin lesion melanoma S/P cardiac pacemaker procedure medtronic device, last checked ~2 months ago. Follows with Dr Stevenson S/P arteriovenous (AV) fistula creation Right arm History of vitrectomy History of cataract surgery bilateral History of adenoidectomy History of tonsillectomy H/O umbilical hernia repair open (~November 2022 [facility]) --> went to [facility] for rehab therapy for about 2 weeks. 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 Physical Exam . Alert and oriented. NAD Right knee/leg: large knee effusion. Tender to palpation around her knee. Unable to do a straight leg raise but no defect felt in her extensor mechanism. Can dorsiflex and plantar flex. NVI. No instability with varus or valgus stress. Limited knee motion due to pain. Results & Data Results & Data Laboratory Results . Diagnostic Findings .xrays and ct scan of the knee and tib/fib reviewed shows a nondisplaced tibia plateau fx, knee effusion, arthritic changes and vascular calcifications. PG Care Time/CCT Total # of Minutes Spent Total Time Spent with Patient: Total time spent is greater than 50% in coordination of care (as documented) at patient's floor/unit and/or counseling patient: Coding Level of Care Code 40952 IN/OBS CONSULT LVL 3,45M (25 - SIGNIFICANT, SEPARATELY IDENTIFIABLE ) Diagnoses Fracture of right tibial plateau S82.141A
--- OUTSIDE RECORDS SUMMARY | 2024-01-09 10:02 | External Medical Summary | Summary of Care ---
Author Name Unknown Organization [facility] Address [address] [place] [address] Phone [phone] Care Team Providers Care Ethernet Network Architect Name Role Phone Luis Fernando Rojas MD Primary Care Provider [phone] Encounter Details Date Type Department Care Team (Late st Contact Info) Description 12/03/2023 Result Scan Unspecified Department Sameer Hassan MD [address] [place] [address] <No scans attached> Allergies Active Allergy Reactions Criticality Noted Date Comments Salvador Inhibitors Other (Please comment) High 0 HyperKalemia documented as of this encounter (statuses as of 12/24/2023) Medications Medication Sig Dispensed Refills Start Date End Date Status Melatonin 10 MG Tablet Take 12 mg by mouth at bedtime. Active Aspirin 81 MG Oral Tablet ChewableIndication s:Type 2 diabetes mellitus 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 dialysis, with long-term current use of insulin (HCC) Take 1 Tab by mouth at bedtime. with food. 90 Tab 3 02/16/2021 Active FreeStyle Jennifer 2 Sensor Use as directed. Replace every 14 days (supplied through DME) 7 Each 3 05/17/2021 Active CPAP every night at bedtime. 12 Active Ketoconazole 2 % External Shampoo (Nizoral)Indicatio ns:Seborrheic dermatitis Apply to scalp once weekly. Lather and leave on for 5 minutes before rinsing. Alternate with over the counter anti-dandruff shampoos on off days. 120 mL 5 09/20/2021 Active ProRenal + D Oral Tablet Take by mouth 1 Tablet daily . 02/28/2022 Active Vitamin D 25 MCG (1000 UT) Oral Tablet Take 5 Tablets by mouth every morning. Active Childrens Chewable Vitamins Oral Tablet Chewable Take 1 Tablet by mouth in the morning and 1 Tablet before bedtime. Active Biotin 1000 MCG Oral Tablet Take 1 Tablet by mouth in the morning and 1 Tablet before bedtime. Active Nitroglycerin 0.4 MG Sublingual Tablet Sublingual (Nitrostat) Place under the tongue 1 Tablet as needed for Pain, Chest. May repeat 3 times. If chest pain continues, call 911. 25 Tablet 11 04/26/2022 Active Acetaminophen 325 MG Oral Tablet (Tylenol) Take 2 Tablets by mouth every 6 hours as needed. Active Citalopram Hydrobromide 40 MG Oral Tablet (CeleXA)Indication s:Major depressive disorder, single episode, moderate (HCC) Take 1 Tablet by mouth in the morning. 90 Tablet 3 04/17/2023 Active Calcium Citrate-Vitamin D 315-5 MG-MCG Oral Tablet Take 1 Tablet by mouth in the morning. 600 mg of calcium twice daily + 20 mcg of vitamin d twice daily. Active BD Pen Needle Mini U/F 31G X 5 MM (Insulin Pen Needle)Indications :Type 2 diabetes mellitus with hemoglobin A1c goal of less than 7.0% (HCC) Use 4 times daily with insulin 400 Each 3 05/01/2023 Active Omeprazole 20 MG Oral Capsule Delayed Release (PriLOSEC)Indicati ons:Gastroesophage al reflux disease without esophagitis Take 1 Capsule by mouth in the morning. 100 Capsule 1 05/01/2023 Active Calcium Acetate (Phos Binder) 667 MG Oral Capsule (Phoslo) TAKE THREE CAPSULES BY MOUTH WITH EACH MEAL AND TWO CAPSULES WITH SNACKS 1300 Capsule 3 05/01/2023 Active amLODIPine Besylate 5 MG Oral Tablet (Norvasc) TAKE ONE TABLET BY MOUTH EVERY DAY IN THE MORNING 90 Tablet 1 05/15/2023 4 Active Additional Information Patient taking differently: 5 mg Oral HS, Reported on 06/24/2023 Levothyroxine Sodium 100 MCG Oral Tablet (Levoxyl)Indicatio ns:Hypothyroidism, unspecified type TAKE 1 TABLET BY MOUTH DAILY AT LEAST 30 MINUTES PRIOR TO FIRST MEAL OF THE DAY OR OTHER MEDICATIONS 90 Tablet 3 09/10/2023 Active Gabapentin 300 MG Oral Capsule (Neurontin) Take 1 Capsule by mouth at bedtime. Follow up with your primary care provider for further management. 90 Capsule 3 09/10/2023 Active Atorvastatin Calcium 40 MG Oral Tablet (Lipitor)Indicatio ns:Dyslipidemia, goal LDL below 100 TAKE ONE TABLET BY MOUTH EVERY EVENING 90 Tablet 3 09/10/2023 Active Semaglutide(0.25 or 0.5MG/DOS) 2 MG/3ML Solution Pen-injector (Ozempic)Indicatio ns:Type 2 diabetes mellitus with hemoglobin A1c goal of less than 7.0% ([facility]) Inject 0.25 mg under the skin for 4 weeks, then increase to 0.5 mg weekly thereafter 3 mL 3 10/20/2023 Active Insulin Glargine Solostar 100 UNIT/ML Subcutaneous Solution Pen-injector (Basaglar KwikPen)Indication s:Type 2 diabetes mellitus with hemoglobin A1c goal of less than 7.0% ([facility]) Inject 16 units subcutaneously every day. 30 mL 4 10/28/2023 Active Insulin Lispro (1 Unit Dial) 100 UNIT/ML Subcutaneous Solution Pen-injector (HumaLOG KwikPen)Indication s:Type 2 diabetes mellitus with hemoglobin A1c goal of less than 7.0% ([facility]) Inject 14 units with breakfast, 4 units with lunch and 16 units with supper + CF 1:25 over 150. Max dose of 45 units per day 30 mL 10/28/2023 Active Diclofenac Sodium 1 % External Gel (Voltaren) Apply topically to affected area 3 times a day as needed for Pain. Apply to affected area 100 g 2 10/30/2023 Active Hospital, Clinic, or Other Facility Administered Medication Ordered Dose Route Frequency Start Date End Date Status vitamin b-12 (Cyanocobalamin) inj 1,000 mcgIndications:S/P gastric bypass 1000 mcg IM [id number] 10/15/2022 07/19/2025 Active vitamin b-12 (Cyanocobalamin) inj 1,000 mcgIndications:Morbid obesity with BMI of 40.0-44.9, adult ([facility]),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 [id number] 10/17/2023 05/23/20 25 Active documented as of this encounter (statuses as of 12/24/2023) Active Problems Problem Noted Date Diagnosed Date Recurrent ventral incisional hernia 12/11/2022 Last Assessment & Plan: Status post repair on 12/11 -small open area on incision draining serous fluid. Dressing changed. No surrounding erythema to suggest cellulitis. -mild nausea last night. No vomiting. Nausea has dissipated on its own. Bowel movements have been regular. 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 Required 1 unit packed red blood cell transfusion. Ppi switched to omeprazole 40 mg twice daily for 8 weeks followed by taper. -omeprazole 40 mg twice daily until June 22 then once daily -needs close follow-up with Bariatric Medicine -patient getting blood work once weekly at dialysis. Reports that she believes most recent hemoglobin was 9 which is up from 7.4 on discharge from the hospital. Continue weekly checks at dialysis to make sure this is trending up -citalopram dose decreased because of the increased risk of bleeding with this medication. Continue 20 mg daily Aortic atherosclerosis 05/07/2021 Last Assessment & Plan: Found on CT of the abdomen and pelvis on 03/15/2021. -goals to decrease risk of cardiovascular disease, systolic blood pressure less than 130, LDL less than 70, A1c less than 7. -continue aspirin 81 mg, Lipitor 40 mg and current insulin regimen of long- acting insulin 23 units daily and carb correction with meals, Novolog 1 unit per 4 g carbs End stage renal disease on dialysis 03/14/2021 Last Assessment & Plan: [facility] dialysis since January, Dr. Magallanes. M-W-F from -. Has dialysis catheter in the chest. Plan is for fistula placement about 1 month following wide local excision of malignant melanoma on the right upper arm which is scheduled for May 22. Presence of cardiac pacemaker 12/13/2020 Type 2 diabetes mellitus wit h chronic kidney disease on chronic dialysis, with long-term current use of insulin 11/28/2020 Last Assessment & Plan: Blood sugars have been fairly well-controlled. Current Status: "Stable" for patient / At or near baseline Degree of Condition Awareness: Demonstrates very good awareness of condition, disease course, and prognosis "RED FLAG" Diabetic symptoms: none Goal HgbA1c <7 Diabetic Complications Vascular (examples: PVD, PAD, CAD, CVA) Renal (example: CKD, Proteinuria, Dialysis) Medication Regimen Basal/Long Acting Insulin Bolus/Short Acting Insulin DM Secondary Prevention Moderate-High Intensity Statin Aspirin Morbid obesity with BMI of 40.0-44.9, adult 09/19 Postsurgical malabsorption, not elsewhere classi fied 10/10/2020 Diabetic gastroparesis 10/10/2020 Hypertensive heart and kidne y disease with chronic diastolic congestive heart failure and stage 5 chronic kidney disease on chronic dialysis 05/29/2020 Overview: Per CKD protocol Last Assessment & Plan: Euvolemic today. Current Status: "Stable" for patient / At or near baseline Degree of Condition Awareness: Demonstrates very good awareness of condition, disease course, and prognosis Current Heart Failure Classifications: With ordinary activity such as doing housework, yard work or shopping ([employer] [facility]) "RED FLAG" HF Symptoms: Leg Swelling (Examples: "I can't wear certain socks or shoes", "My pants feel tight") Increased dyspnea on exertion (Example: "I can't walk to the kitchen or up the stairs") Chronic Medication Regimen: Beta Ngoc Therapy: Carvedilol SALVADOR Inhibitor/ARB Therapy: Other: none on hd Diuretic therapy: Other: hd Self - Management Plan Other/Additional Comments: hd Exacerbation Plan Other/Additional Comments: hd Gastroesophageal reflux disease without esophagi tis 11/19/2018 SSS (sick sinus syndrome) 11/13/2018 PAT (paroxysmal atrial tachycardia) 11/13/2018 SALVADOR inhibitor intolerance 05/24/2018 Last Assessment & Plan: Caused hyperkalemia. Avoid use. Hyperparathyroidism, secondary renal 05/21/2018 MINISTERIO on CPAP 05/21/2018 Last Assessment & Plan: Has not been using CPAP. Mask does not fit. Stable proliferative diabeti c retinopathy of both eyes associated with type 2 diabetes mellitus 05/21/2018 History of endometrial cancer 11/05/2017 Overview: [place]/BSO. Per UpToDate, 2018: Posttreatment surveillance is aimed at the early detection of recurrent disease. For women with endometrial carcinoma, surveillance consists mainly of monitoring for symptoms and physical examinations. We do not perform vaginal cytology in endometrial cancer survivors because the data suggest they are not useful in early detection of recurrent disease. Use small sized speculum. Chronic diastolic heart failure 11/03/2017 Type 2 diabetes mellitus wit h diabetic polyneuropathy, with long-term current use of insulin 05/29/2017 Last Assessment & Plan: Gabapentin 600 mg at QHS Mitral annular calcification 04/28/2017 Major depressive disorder, r ecurrent episode, moderate with seasonal pattern 04/03/2015 HTN, goal below 140/90 04/11/2014 Vitamin D deficiency 11/25/2013 Rosacea 02/23/2013 Hypothyroidism (acquired) 02/23/2013 Last Assessment & Plan: Continue levothyroxine Type 2 diabetes mellitus wit h hemoglobin A1c goal of less than 7.0% 05/21/2011 Overview: ICD-10 update of inactive term HX-MALIG SKIN 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: 2009 L calf MIS 03/2021 R upper arm MM at least 1.1 mm, SLNB negative (0/2), IB Dyslipidemia, goal LDL below 100 Overview: primarily high triglycerides documented as of this encounter (statuses as of 12/24/2023) Resolved Problems Problem Noted Date Diagnosed Date Resolved Date Renal failure 01/31/2022 10/08/2022 Overview: hemodialysis Marginal ulcer 01/31/2022 08/21/2022 Overview: duplicate Post-op pain 01/29/2022 10/08/2022 Pre-operative examination 01/01/2022 Dialysis AV fistula malfunction 11/27/2021 11/28/2022 Acute posthemorrhagic anemia 05/07/2021 10/08/2022 Last Assessment & Plan: Patient had epigastric pain and hematemesis, found have marginal ulcer on EGD. Required 1 unit packed red blood cell transfusion. Ppi switched to omeprazole 40 mg twice daily for 8 weeks followed by taper. -omeprazole 40 mg twice daily until June 22 then once daily -needs close follow-up with Bariatric Medicine -patient getting blood work once weekly at dialysis. Reports that she believes most recent hemoglobin was 9 which is up from 7.4 on discharge from the hospital. Continue weekly checks at dialysis to make sure this is trending up -citalopram dose decreased because of the increased risk of bleeding with this medication. Continue 20 mg daily Malignant melanoma of right upper extremity 05/07/2021 10/08/2022 Last Assessment & Plan: Malignant melanoma found on biopsy. Scheduled for wide local excision on May 22. 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 11/19/2018 10/08/2022 Morbid obesity with body mas s index of 40.0-44.9 in adult 11/19/2018 07/01/2019 Posttraumatic stress disorder 08/07/2018 10/10/2020 Hypertensive heart and kidne y disease with chronic diastolic congestive heart failure and stage 3 chronic kidney disease 05/21/201806/01 Overview: Per CKD protocol Diabetes mellitus with chronic kidney disease 05/21/20 18 05/21/2018 Type 2 diabetes mellitus wit h stage 3 chronic kidney disease, with long-term current use of insulin 05/21/2018 11/30/2020 Overview: Per CKD protocol Class 3 severe obesity due t o excess calories with serious comorbidity and body mass index (BMI) of 40.0 to 44.9 in adult 05/21/2018 9 Hyperparathyroidism, secondary renal 05/21/2018 09/23/2018 Breast cancer screening 03/10/201807/2017 Overview: In conclusion, our recommendation for this patient is yearly breast MRI as an adjunct to yearly breast mammography, highly recommended chemoprevention given JUSTICE model 5 year risk of 4.1%, self breast examination monthly, clinical breast examination yearly, self breast awareness, f/u in high risk clinic yearly. Intestinal postoperative nonabsorption 06/09/2017 08/30/2019 Incarcerated ventral hernia 04/25/2017 04/25/2017 SBO (small bowel obstruction) 04/25/2017 05/21/2018 Body mass index (BMI) of 50. 0 to 59.9 in adult 04/21/2017 04/25/2017 Overview: Per Obesity protocol #1 BMI 40.0-44.9, adult 04/16/2017 018 Overview: Per Obesity protocol #1 Acute postoperative abdominal pain 04/16/2017 05/29/2017 History of knee surgery 04/16/201703/2017 History of cardiac catheterization 04/16/2017 05/29/2017 History of biliary T-tube placement 04/16/2017 05/29/2017 [employer] Other*[id number] 04/13/2013 08/27/2016 Overview: Study Title: Genomic Markers for Patients with Cardiovascular Disease Project # [id number] Booker: Siena Laws MD [phone] Hypertensive heart disease 03/25/2013 1 07/29/2016 Neuropathy, diabetic 02/18/2013 03/06/2 019 Diastolic heart failure 12/22/201203/2017 Kidney disease, chronic, sta ge III (GFR 30-59 ml/min) 10/02/2011 08/21/2022 Overview: More specified code listed on PL Historical Type 2 diabetes mellitus wit h hemoglobin A1c goal of less than 7.0% 05/21/2011 05/21/2011 Overview: ICD-10 update of inactive term Type 1 diabetes mellitus wit h hemoglobin A1c goal of less than 7.0% 02/13/2011 05/21/2011 Overview: ICD-10 update of inactive term Sleep apnea 06/28/2010 05/21/2018 Lumbago 06/28/2010 05/29/2017 Allergic rhinitis 04/05/2010 01/23/2017 Neoplasm of uncertain behavior of skin 01/16/2010 01/08/2013 DM type 2 causing renal disease 05/21/2018 Iron deficiency anemia 05/29 Overview: low iron Obesity, morbid (more than 1 00 lbs over ideal weight or BMI > 40) 11/02/2020 Overview: ICD-10 update of inactive term HTN, goal below 130/80 04/11 documented as of this encounter (statuses as of 12/24/2023) Immunizations Name Administration Dates Next Due COVID-19 mRNA, LNP-s, No Pre serve, 2-Dose Series (Moderna) 04/09/2021,09/23/2020,08/19/2020 COVID-19, LNP-s, No Preserve , Espinoza-sucrose, Ages 12+ (Pfizer) 01/08/2022 Hepatitis B Vaccine, Recombi nant, Adjuvanted, 20 mcg/mL (Heplisav-B) 09/05/2021,05/09/2021,04/04/2021,02/18 Hepatitis B, 20+ yrs 09/16/2018,04/14/2018,03/1104/11/2018 Pneumococcal Conjugate Vacci ne, 20-valent ([id number]) 12/02/2023(Deferred: - pt states she's already received) Pneumococcal Polysaccharide PPV23 (Pneumovax) 08/30/2014,09/18/2013,07/28/2007 RSV Vac., Bivalent, Perfusio n F, Pf,0.5 Ml (Abrysvo) 08/05/2023 Seasonal Influenza Virus Vac cine, Unspecified Formulation 04/20/2022,04/12/2020,04/15/2019,03/22,05/29/2017,04/23/2016,03/21/20 16,05/05/2014,04/01/2013,04/23/2012,1 07/21/2010,04/05/2010 Seasonal Influenza, PF, 6 M & above, IM , (FluLaval or Fluzone) 05/08/2021,04/12/2020,04/15/2019,03/22,05/29/2017 Seasonal Influenza, Quadriva lent Hd (Fluzone Hd) 04/17/2023 Seasonal Influenza, Quadriva lent, No Preserve, IM 04/23/2016 Seasonal Influenza, Split, I IV3, With Preserve, Inj 05/21/2015,05/05/2014,04/01/2013,10/2011,05/21/2011,04/05/2010 TD, Preservative Free 04/12/2020 TDAP (age 10 and older)(Boostrix) 04/12/2020 TDAP, Age 7 and older, IM (Adacel) 04/05/2010 Zoster Vaccine Recombinant (Shingrix) 12/13/2020 ,10/12/2020 documented as of this encounter Social History Tobacco Use Types Packs/Day Years Used Date Smoking Tobacco: Never Smokeless Tobacco: Never Alcohol Use Standard Drinks/Week Comments No 0 (1 standard drink = 0.6 oz pur e alcohol) PHQ-2 Answer Date Recorded PHQ Adult Total Score 0 08/14/2023 Hunger Vital Sign Answer Date Recorded Within the past 12 months, y ou worried that your food would run out before you got the money to buy more. Never true 08/14/19 24 Within the past 12 months, t he food you bought just didn't last and you didn't have money to get more. Never true 08/14/2023 Sex and Gender Information Value Date Recorded Sex Assigned at Female 06/09/2019 5:21 PM EST Gender Identity Female 06/09/2019 5:21 PM EST Sexual Orientation Straight 06/09/2019 5: 21 PM EST Job Start Date Occupation Industry Not on file Not on file Not on file documented as of this encounter Functional Status Functional Status Response Date of Assess ment Are you deaf or do you have serious difficulty h earing? No 12/11/2022 Are you blind or do you have serious difficulty seeing, even when wearing glasses? No 12/11/2022 Do you have serious difficul ty walking or climbing stairs? (5 years old or older) No 12/11/2022 Do you have difficulty dress ing or bathing? (5 years old or older) No 12/11/2022 Because of a physical, menta l, or emotional condition, do you have difficulty doing errands alone such as visiting a doctor s office or shopping? (15 years old or older) No 12/12/19 Cognitive Status Response Date of Assessm ent Because of a physical, menta l, or emotional condition, do you have serious difficulty concentrating, remembering, or making decisions? (5 years old or older) No 12/11/2022 documented as of this encounter Plan of Treatment Upcoming Encounters Date Type Department Care Team (Late st Contact Info) Description 12/30/2023 8:20 AM EDT Office Visit Podiatry [facility] [address] [facility] [address] [facility] [place] [address] Calli Avila DPM [address] [facility] [place] [address] 12/30/2023 1:00 PM EDT [facility]med[facility] Pharm[facility], [place] [address] [facility] [address] [place], [facility] [address] [facility] [place] [address] 01/29/2024 9:15 AM EDT Cardiac Studies Cardiac Studies, [facility] [address] [facility] [place] [address] 02/09/2024 10:00 AM EDT Office Visit Cardiology, [facility] [address] [place] [address] Ulises Stevenson DO [address] [place] [address] 02/26/2024 7:40 AM EDT Office Visit Family [facility] [address] [facility] [id number] Luis Fernando Rojas MD [address] [place] [facility] [place] [address] 04/27/2024 12:20 PM EDT Office Visit Nutrition & Weight Management, [facility] [address] [place] [address] Cleo Fonseca PA-C [address] [place] [address] Scheduled Procedures Name Priority Associated Diagnoses Date/Ti me COLONOSCOPY FLEXIBLE PROXIMA L DIAGNOSTIC Recall History of colonic polyps Health Maintenance Due Date Last Done Comments Cologuard 12/23/2003 Fecal Occult Blood Test 12/23/2003 Sigmoidoscopy 12/23/2003 Pneumococcal Vaccine: 65+ Years (3 of 3 - PCV) 08/30/2015 08/30/2014, 09/18/2013, 07/28/2007 Diabetic Eye Exam 12/13/2022 12/13/2021, , 12/13/2021, Additional history exists TSH 01/23/2023 01/23/2022, 07/21, 05/18/2021, Additional history exists HbA1c 06/14/2023 12/12/2022, 06/20, 10/01/2021, Additional history exists COVID-19 Vaccine ( season) 2023 06/02/2023, 01/08/2022, 04/09/2021, Additional history exists Diabetic Foot Exam 10/16/2023 10/15/2022, 0 01/31/2021, 04/12/2020, Additional history exists Mammogram 07/08/2024 07/08/2023, 03/22, 04/18/2022, Additional history exists Colonoscopy 02/28/2028 02/27/2023, 11/19, 12/02/2013, Additional history exists Colorectal Cancer Screening 02/28/2028 DTaP,Tdap,and Td Vaccines (4 - Td or Tdap) 04/12/2030 04/12/2020, 04/12/2020, 04/05/2010 Zoster Vaccines Completed 12/13/2020, 10/12/2020 Albumin/Creatinine Ratio Discontinued 021, 12/09/2019, 01/02/2016, Additional history exists RETIRED - COLONOSCOPY-EVERY 5 YRS AGES 18-100 Discontinued 02/27/2023, 12/11/2017, 12/02/2013, Additional history exists Influenza Vaccine (FLU shot) Completed 04/17/2023, 04/20/2022, 05/08/2021, Additional history exists Hepatitis B Completed 07/09/2023, 08/21, 05/09/2021, Additional history exists GARDASIL-HPV IMMUNIZATION SERIES Aged Out No longer eligible based on patient's age to complete this topic MENINGOCOCCAL (MENACTRA/MENVEO) Aged Out No longer eligible based on patient's age to complete this topic documented as of this encounter Medical Devices Implanted Type Area Controlled Atmospheric Furnace Brazer Device Identifier Shelf Expiration Date Model / Serial / Lot Coil Vortex 35 Pltinm [id number] - [id number] Implanted:Qty: 1 on 11/27/2021 by Sterling Cates MD at [facility] – [place] Right: Upper Arm [employer] : NEURO INTR [id number] 08/15/2024 [id number] Coil Vortex 35 Pltinm [id number] - [id number] Implanted:Qty: 1 on 11/27/2021 by Sterling Cates MD at OR [facility] – [place] Right: Upper Arm [employer] : NEURO INTR [id number] 08/15/2024 [id number] Coil Vortex 35 Pltinm [id number] - [id number] Implanted:Qty: 1 on 11/27/2021 by Sterling Cates MD at OR [facility] – [place] Right: Upper Arm [employer] : NEURO INTR [id number] 08/15/2024 [id number] / / [id number] Coil Vortex 35 Pltinm [id number] - [id number] Implanted:Qty: 1 on 11/27/2021 by Sterling Cates MD at OR [facility] – [place] Right: Upper Arm [employer] : NEURO INTR [id number] 05/16/2024 [id number] / / [id number] Azur 35 Detachable 5mm 11cm - [id number] Implanted:Qty: 1 on 03/19/2022 by Jose Devine MD at OR [facility] – [place] Right: Wrist [employer] [id number] 10/18/2025 [id number] / / [id number] Azur 35 Detachable 5mm 11cm - [id number] Implanted:Qty: 1 on 03/19/2022 by Jose Devine MD at OR [facility] – [place] Right: Wrist [employer] [id number] 06/19/2026 [id number] / / [id number] Mesh Flat Sheet 10x14 [id number] - [id number] Implanted:Qty: 1 on 12/11/2022 by Eros Dash MD at OR [facility] – [place] N/A: Abdomen CR BARD : DAVOL [id number] 06/17/2027 [id number] / / [id number] documented as of this encounter Procedures Procedure Name Priority Date/Time Associated Diagnosis Comments OUTSIDE LAB RESULTS 12/03/2023 documented in this encounter Results * OUTSIDE LAB RESULTS (12/03/2023) 12/03/2023 Sameer Hassan MD LABORATORY documented in this encounter Advance Directives Documents on File Type Date Recorded Patient Sales Specialist Expl anation POLST 11/13/2020 POLST PENNSYLVA VALERIA ORDERS FOR LIFE-SUSTAINING TREATMENT * Full Code (Latest Code Status on File) Date Activated Date Inactivated Comments 12/11/2022 4:37 PM 12/19/2022 3:22 PM Question Answer Comments Discussion of Advance Direct sarah beth occurred with: Not Discussed due to patient's condition * Full Code Date Activated Date Inactivated Comments 12/11/2022 11:09 AM 12/11/2022 4:36 PM Question Answer Comments Discussion of Advance Direct sarah beth occurred with: Not Discussed due to patient's condition * Full Code Date Activated Date Inactivated Comments 01/28/2022 4:47 PM 01/31/2022 1:26 AM Question Answer Comments Discussion of Advance Directives occurred with: Not Discussed Does the patient have a Living Will? No Does the patient have Health Care Power of Attor linnea? No * Full Code Date Activated Date Inactivated Comments 01/28/2022 11:14 AM 01/28/2022 4:47 PM * Full Code Date Activated Date Inactivated Comments 05/22/2021 12:38 PM 05/22/2021 5:48 PM This order reflects the patients wishes and were consensually agreed upon. Question Answer Comments Discussion of Advance Directives occurred with: Not Discussed Does the patient have a Living Will? No Does the patient have Health Care Power of Attor linnea? No Healthcare Agents on File Name Relationship Healthcare Agent Relationshi p Communication Zhen Finley Spouse Health Care Agent Care Teams Ethernet Network Architect Relationship Specialty Start Date End Date Luis Fernando Rojas MD [address] [place] [address] PCP - General Family Medicine 09/23/16 documented as of this encounter
--- OUTSIDE RECORDS SUMMARY | 2024-01-09 10:02 | External Medical Summary | Summary of Care ---
Author Name Unknown Organization [facility] Address [address] [place] [address] Phone [phone] Care Team Providers Care News Technical Director Name Role Phone Luis Fernando Rojas MD Primary Care Provider [phone] Reason for Visit * Reason Comments Acute Patient is here toda y for an acute visitPatient is here today due to having black out, she's had two in the past 8 days. Patient can tell when she doesn't feel good but not when the black out is going to occur.Patient was at home when blackouts occurred. Patient states not a lot of notice when occurs Patient states she saw a PCP umang lynch x 2 weeks due to SOB when getting a shower or getting dressed. Encounter Details Date Type Department Care Team (Late st Contact Info) Description 12/26/2023 3:20 PM EDT Office Visit [facility] [address] [place] [address] Luis Fernando Rojas MD [address] [place], [place] [id number] Dyspnea on exertion* Allergies Active Allergy Reactions Criticality Noted Date Comments Salvador Inhibitors Other (Please comment) High 0 HyperKalemia documented as of this encounter (statuses as of 12/26/2023) Medications Medication Sig Dispensed Refills Start Date [...] directed. Replace every 14 days (supplied through [facility] 7 Each 3 05/17/2021 Active CPAP every night at bedtime. 12 Active Ketoconazole 2 % External Shampoo (Nizoral)Indicatio ns:Seborrheic dermatitis Apply to scalp once weekly. Lather and leave on for 5 minutes before rinsing. Alternate with over the counter anti-dandruff shampoos on off days. 120 mL 5 09/20/2021 Active Additional Information Patient not taking.Informant: Patient, Reported on 12/26/2023 ProRenal + D Oral Tablet Take by [...] MOUTH EVERY EVENING 90 Tablet 3 09/10/2023 5 Active Semaglutide(0.25 or 0.5MG/DOS) 2 MG/3ML Solution Pen-injector (Ozempic)Indicatio ns:Type 2 diabetes mellitus with hemoglobin A1c goal of less than 7.0% (HCC) Inject 0.25 mg under the skin for 4 weeks, then increase to 0.5 mg weekly thereafter 3 mL 3 10/20/2023 Active Additional Information Patient not taking.Reported on 12/26/2023 Insulin Glargine Solostar 100 UNIT/ML Subcutaneous Solution Pen-injector (Basaglar KwikPen)Indication s:Type 2 diabetes mellitus with hemoglobin A1c goal of less than 7.0% (HCC) Inject 16 units subcutaneously every day. 30 mL 4 10/28/2023 Active Insulin Lispro (1 Unit Dial) 100 UNIT/ML Subcutaneous Solution Pen-injector (HumaLOG KwikPen)Indication s:Type 2 diabetes mellitus with hemoglobin A1c goal of less than 7.0% (HCC) Inject 14 units with breakfast, 4 units with lunch and 16 units with supper + CF 1:25 over 150. Max dose of 45 units per day 30 mL 4 10/28/2023 Active Diclofenac Sodium 1 % External Gel (Voltaren) Apply topically to affected area 3 times a day as needed for Pain. Apply to affected area 100 g 2 10/30/2023 Active Hospital, Clinic, or Other Facility Administered Medication Ordered Dose Route Frequency Start Date End Date Status vitamin b-12 (Cyanocobalamin) inj 1,000 mcgIndications:S/P gastric bypass 1000 mcg IM [id number] 10/15/2022 07/19/2025 Active vitamin b-12 (Cyanocobalamin) inj 1,000 mcgIndications:Morbid obesity with BMI of 40.0-44.9, adult (HCC),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 [id number] 10/17/2023 12/11/19 25 Active documented as of this encounter (statuses as of 12/26/2023) Active Problems Problem Noted Date Diagnosed Date [...] 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 10/15/2022 [facility] OTHER*[id number] 01/01/2022 S/P gastric bypass 01/01/2022 Marginal ulcer [...] on dialysis 03/14/2021 Last Assessment & Plan: [facility] dialysis since January, Dr. Magallanes. M-W-F from 07-25. Has dialysis catheter in the chest. Plan [...] 05/21/2018 History of endometrial cancer 11/05/2017 Overview: JRESEY/BSO. Per UpToDate, 2018: Posttreatment surveillance is aimed [...] as of this encounter (statuses as of 12/26/2023) Resolved Problems Problem Noted Date Diagnosed Date [...] 10/08/2022 Insulin long-term use 11/19/20182018 Overview: Duplicate terminal manager (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 insulin 11/19/2018 10/08/2022 Morbid [...] T-tube placement 04/16/2017 05/29/2017 [employer] Other*[id number] 04/13/2013 08/27/2016 Overview: Study Title: Genomic Markers for Patients with Cardiovascular Disease Project # [id number] Clerical Support: Siena Laws MD [phone] Hypertensive heart disease 03/25/2013 1 07/29/2016 Neuropathy, diabetic 02/18/2013 019 Diastolic heart failure 12/22/201203/2017 Kidney disease, [...] as of this encounter (statuses as of 12/26/2023) Immunizations Name Administration Dates Next Due COVID-19 mRNA, LNP-s, No Pre serve, 2-Dose Series (Moderna) 04/09/2021,09/23/2020,08/19/2020 COVID-19, LNP-s, No Preserve , Espinoza-sucrose, Ages 12+ (Pfizer) 01/08/2022 Hepatitis B Vaccine, Recombi nant, Adjuvanted, 20 mcg/mL (Heplisav-B) 09/05/2021,05/09/2021,04/04/2021,02/18 Hepatitis B, 20+ yrs 09/16/2018,04/14/2018,03/1104/11/2018 Pneumococcal Conjugate Vacci ne, 20-valent ([id number]) 12/02/2023(Deferred: - pt states she's already received) [...] money to buy more. Never true 08/14/19 Within the past 12 months, t he [...] on file documented as of this encounter Last Filed Vital Signs Vital Sign Reading Time Taken Comments Blood Pressure 92/52 12/26/2023 3:29 PM EDT Pulse 77 12/26/2023 3:22 PM EDT Temperature 36 C (96.8 F) 12/26/2023 3:22 PM EDT Respiratory Rate 16 12/26/2023 3:22 PM EDT Oxygen Saturation 96% 12/26/2023 3:22 PM EDT Inhaled Oxygen Concentration - - Weight 103.5 kg (228 lb 3.2 oz) 12/26/2023 3:22 PM EDT Height 161.3 cm (5' 3.5") 12/26/2023 3:22 PM EDT Body Mass Index 39.79 12/26/2023 3:22 PM EDT documented in this encounter Functional Status Functional Status Response [...] (15 years old or older) No 12/12/19 23 Cognitive Status Response Date of Assessm ent Because of a physical, menta l, or emotional condition, do you have serious difficulty concentrating, remembering, or making decisions? (5 years old or older) No 12/11/2022 documented as of this encounter Progress Notes * Luis Fernando Rojas MD - 12/26/2023 4:35 PM EDT Subjective: Candi Finley is a 63 year old female. Chief Complaint Patient presents with Acute Patient is here today for an acute visit Patient is here today due to having black out, she's had two in the past 8 days. Patient can tell when she doesn't feel good but not when the black out is going to occur. Patient was at home when blackouts occurred. Patient states not a lot of notice when occurs Patient states she saw a PCP [facility] x 2 weeks due to SOB when getting a shower or getting dressed. HPI: 63-year-old seen today primarily because of to blackout episodes in the last 2 weeks. Past medical history that includes end-stage kidney disease on hemodialysis. Type 2 diabetes and hypertension. She is status post pacemaker. She was seen at [facility] (Cleo Brantley) on December 11 describing recurrent episodes of dyspnea with limited exertion such as showering or changing her clothes. She also has had 2 episodes of syncope or near-syncope. She describes 1 episode where she was standing in front of a chair and started to feel poorly and dropped into the chair. She believes that she did pass out it least 4 a few seconds. The other episode also was when she was next to a chair. She has not had orthostatic symptoms i.e. lightheaded in her dizziness upon standing. She has not aware of heart racing. After being seen at [facility] arrangements were made for her to be seen by Cardiology sooner than her previously scheduled March appointment. She now is scheduled to see February 08 with a echocardiogram to be done January 28. She has not having chest pain. She did inform Dr. Rollins her clinical psychologist licensed regarding the episodes. There has been no problems with her dialysis in recent months. 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 Type 2 diabetes mellitus with hemoglobin A1c goal of less than 7.0% ([facility]) Vitamin D deficiency HTN, goal below 140/90 Major depressive disorder, recurrent episode, moderate with seasonal pattern ([facility]) Rosacea Hypothyroidism (acquired) Mitral annular calcification Type 2 diabetes mellitus with diabetic polyneuropathy, with long-term current use of insulin ([facility]) Chronic diastolic heart failure ([facility]) History of endometrial cancer Hyperparathyroidism, secondary renal (HCC) MINISTERIO on CPAP Stable proliferative diabetic retinopathy of both eyes associated with type 2 diabetes mellitus ([facility]) SALVADOR inhibitor intolerance SSS (sick sinus syndrome) ([facility]) PAT (paroxysmal atrial tachycardia) ([facility]) Gastroesophageal reflux disease without esophagitis Hypertensive 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 congestive heart failure and stage 5 chronic kidney disease on chronic dialysis ([facility]) Morbid obesity with BMI of 40.0-44.9, adult ([facility]) Postsurgical malabsorption, not elsewhere classified Diabetic gastroparesis ([facility]) Type 2 diabetes mellitus 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 dialysis, with long-term current use of insulin ([facility]) Presence of cardiac pacemaker End stage renal disease on dialysis ([facility]) Marginal ulcer Aortic atherosclerosis ([facility]) [facility] RESEARCH OTHER*[id number] S/P gastric bypass 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 Aspirin 81 MG Oral Tablet Chewable Take 1 Tab by mouth at bedtime. with food. 90 Tab 3 FreeStyle Jennifer 2 Sensor Use as directed. Replace every 14 days (supplied through [facility] 7 Each 3 CPAP every night at bedtime. 12 ProRenal + D Oral Tablet Take by mouth 1 Tablet daily . Vitamin D 25 MCG (1000 UT) Oral Tablet Take 5 Tablets by mouth every morning. Childrens Chewable Vitamins Oral Tablet Chewable Take 1 Tablet by mouth in the morning and 1 Tabletbefore bedtime. Biotin 1000 MCG Oral Tablet Take 1 Tablet by mouth in the morning and 1 Tablet before bedtime. Nitroglycerin 0.4 MG Sublingual Tablet Sublingual (Nitrostat) Place under the tongue 1 Tablet as needed for Pain, Chest. May repeat 3 times. If chest pain continues, call 911. 25 Tablet 11 Citalopram Hydrobromide 40 MG Oral Tablet (CeleXA) Take 1 Tablet by mouth in the morning. 90 Tablet3 Calcium Citrate-Vitamin D 315-5 MG-MCG Oral Tablet Take 1 Tablet by mouth in the morning. 600 mg ofcalcium twice daily + 20 mcg of vitamin d twice daily. BD Pen Needle Mini U/F 31G X 5 MM (Insulin Pen Needle) Use 4 times daily with insulin 400 Each 3 Omeprazole 20 MG Oral Capsule Delayed Release (PriLOSEC) Take 1 Capsule by mouth in the morning. 100 Capsule 1 Calcium Acetate (Phos Binder) 667 MG Oral Capsule (Phoslo) TAKE THREE CAPSULES BY MOUTH WITH EACH MEAL AND TWO CAPSULES WITH SNACKS 1300 Capsule 3 amLODIPine Besylate 5 MG Oral Tablet (Norvasc) TAKE ONE TABLET BY MOUTH EVERY DAY IN THE MORNING (Patient taking differently: Take 1 Tablet by mouth at bedtime.) 90 Tablet 1 Levothyroxine Sodium 100 MCG Oral Tablet (Levoxyl) TAKE 1 TABLET BY MOUTH DAILY AT LEAST 30 MINUTESPRIOR TO FIRST MEAL OF THE DAY OR OTHER MEDICATIONS 90 Tablet 3 Gabapentin 300 MG Oral Capsule (Neurontin) Take 1 Capsule by mouth at bedtime. Follow up with your primary care provider for further management. 90 Capsule 3 Atorvastatin Calcium 40 MG Oral Tablet (Lipitor) TAKE ONE TABLET BY MOUTH EVERY EVENING 90 Tablet 3 Insulin Glargine Solostar 100 UNIT/ML Subcutaneous Solution Pen-injector (Basaglar KwikPen) Inject 16 units subcutaneously every day. 30 mL 4 Insulin Lispro (1 Unit Dial) 100 UNIT/ML Subcutaneous Solution Pen-injector (HumaLOG KwikPen) Inject 14 units with breakfast, 4 units with lunch and 16 units with supper + CF 1:25 over 150. Max dose of 45 units per day 30 mL 4 Diclofenac Sodium 1 % External Gel (Voltaren) Apply topically to affected area 3 times a day as needed for Pain. Apply to affected area 100 g 2 Ketoconazole 2 % External Shampoo (Nizoral) Apply to scalp once weekly. Lather and leave on for 5 minutes before rinsing. Alternate with over the counter anti- dandruff shampoos on off days. (Patient not taking: Reported on 12/26/2023) 120 mL 5 Acetaminophen 325 MG Oral Tablet (Tylenol) Take 2 Tablets by mouth every 6 hours as needed. Abrysvo 120 MCG/0.5ML Intramuscular Solution Reconstituted (RSV Pre-Fusion F A&B Vac Rcmb) Inject IM as directed (Patient not taking: Reported on 12/01/2023) 1 Each 0 Semaglutide(0.25 or 0.5MG/DOS) 2 MG/3ML Solution Pen-injector (Ozempic) Inject 0.25 mg under the skin for 4 weeks, then increase to 0.5 mg weekly thereafter (Patient not taking: Reported on 12/26/2023)3 mL 3 Current Facility-Administered Medications Medication Dose Route Frequency Provider Last Rate Last Admin vitamin b-12 (Cyanocobalamin) inj 1,000 mcg 1,000 mcg Intramuscular Q12 Weeks Luis Fernando Rojas MD 1,000 mcg at 01/02/23 1242 vitamin b-12 (Cyanocobalamin) inj 1,000 mcg 1,000 mcg Intramuscular Q12 Weeks Cleo Fonseca PA-C Review of patient's allergies indicates: Allergen Reactions Salvador Inhibitors Other (Please comment) HyperKalemia Objective: BP 92/52 | Pulse 77 | Temp 36 C (96.8 F) (Temporal Artery) | Resp 16 | Ht 1.613 m (5' 3.5") | Wt 103.5 kg (228 lb 3.2 oz) | SpO2 96% | BMI 39.79 kg/m | BSA 2.15 m Physical Exam: Note that her blood pressure is low but she has been getting blood pressure is higher at home as well as at dialysis unit. And her blood pressure was checked after both of the syncopalor near syncopal episodes and was normal in the 120s over 70s. CONST: alert, pleasant, no acute distress HEAD: normocephalic, atraumatic NECK: supple, soft, no adenopathy Eyes - PERRLA, EOM'I OROPHARYNX: clear, no swelling or erythema, moist CV: regular rate and rhythm, no murmur CHEST: clear to auscultation bilaterally, no rales or wheezing ABD: soft, non tender, non distended, no masses or hepatosplenomegaly EXT: no edema, no joint swelling or deformities, . Fistula left forearm-nontender. NEURO: AAOx3, no gross focal deficits, cerebellar signs normal, affect appropriate MENTAL STATUS: no evidence of thought disorder, no delusional thought, no evidence of paranoia, thought is non-tangential. SKIN: no rash or significant lesions ASSESSMENT/PLAN: Dyspnea on exertion (Primary) - EKG; Future; Expected date: 12/26/2023 - XR CHEST 2 VIEWS; Future; Expected date: 12/26/2023 EKG shows atrial sensed ventricular paced rhythm with prolonged AV conduction. Her QRS duration is prolonged compared to previous EKGs but they also showed what was considered prolonged AV conduction.) Etiology is unclear-coronary disease/ischemia this real possibility. Doubt very much it has anything to do with pacemaker malfunction. She has been getting blood work only at the dialysis office accessing through her AV fistula as otherwise phlebotomists have not been able to drop from peripheral veins. I encouraged her to go to the ER if she has any additional episodes anymore significant than in past. Luis Fernando Rojas MD * Vicente Wharton MED ASSIST - 12/26/2023 4:03 PM EDT ekg done as per 's order documented in this encounter Nursing Notes * Vicente Wharton MED ASSIST - 12/26/2023 3:24 PM EDT The patient has been properly identified by confirmation of name and date of . Chief Complaint Patient presents with Acute Patient is here today for an acute visit Patient is here today due to having black out, she's had two in the past 8 days. Patient can tell when she doesn't feel good but not when the black out is going to occur. Patient was at home when blackouts occurred. Patient states not a lot of notice when occurs Patient states she saw a PCP umang lynch x 2 weeks due to SOB when getting a shower or getting dressed. documented in this encounter Plan of Treatment Upcoming Encounters Date Type Department Care Team (Late st Contact Info) Description 12/30/2023 8:20 AM EDT Office Visit Podiatry [facility] [address] [place] [address] Calli Avila DPRenae [address] [place] [address] 12/30/2023 1:00 PM EDT [facility]icine Pharm[facility], [place] [address] [facility] [address] [facility] [address] [facility] [place] [address] 01/29/2024 9:15 AM EDT Cardiac Studies Cardiac Studies, [facility] [address] [place] [address] 02/09/2024 10:00 AM EDT Office Visit Cardiology, [facility] [address] [facility] [place] [address] Ulises Stevenson, [address] [facility] [place] [address] 02/26/2024 7:40 AM EDT Office Visit Family Practice, [place] [address] [facility] [id number] Luis Fernando Rojas MD [address] [facility] [address] 04/27/2024 12:20 PM EDT Office Visit Nutrition & Weight Management, [facility] [address] [place] [address] Cleo Fonseca PA-C [address] [facility] [place] [address] Scheduled Orders Name Type Priority Associated Diagnoses Orde r Schedule EKG EKG Routine Dyspnea on exertion Expected: 12/26/2023 (Approximate), Expires: 01/24/2025 XR CHEST 2 VIEWS Medical Imaging Routine Dyspnea on exertion Expected: 12/26/2023, Expires: 02/25/2024 Scheduled Procedures Name Priority Associated Diagnoses Date/Ti [...] this encounter Medical Devices Implanted Type Area Washer Meat Device Identifier Shelf Expiration Date Model / Serial / Lot Coil Vortex 35 Pltinm [id number] - [id number] Implanted:Qty: 1 on 11/27/2021 by Sterling Cates MD at [place] [facility] [place] Right: Upper Arm [employer] : NEURO INTR [id number] 08/15/2024 [id number] 1 / / [id number] Coil Vortex 35 Pltinm [id number] - [id number] Implanted:Qty: 1 on 11/27/2021 by Sterling Cates MD at OR [facility] [place] Right: Upper Arm [employer] : NEURO INTR [id number] 08/15/2024 [id number] 1 / / [id number] Coil Vortex 35 Pltinm [id number] - [id number] Implanted:Qty: 1 on 11/27/2021 by Sterling Cates MD at OR [facility] [place] Right: Upper Arm [employer] : NEURO INTR [id number] 08/15/2024 [id number] 1 / / [id number] Coil Vortex 35 Pltinm [id number] - [id number] Implanted:Qty: 1 on 11/27/2021 by Sterling Cates MD at OR [facility] [place] Right: Upper Arm [employer] : NEURO INTR [id number] 05/16/2024 [id number] 1 / / [id number] Azur 35 Detachable 5mm 11cm - [id number] Implanted:Qty: 1 on 03/19/2022 by Jose Devine MD at OR [facility] [place] Right: Wrist [employer] [id number] 10/18/2025 [id number] / / [id number] Azur 35 Detachable 5mm 11cm - [id number] Implanted:Qty: 1 on 03/19/2022 by Jose Devine MD at OR [facility] [place] Right: Wrist [employer] [id number] 06/19/2026 [id number] / / [id number] Mesh Flat Sheet 10x14 [id number] - [id number] Implanted:Qty: 1 on 12/11/2022 by Eros Dash MD at OR [facility] [place] N/A: Abdomen CR BARD : DAVOL [id number] 06/17/2027 [id number] / / [id number] documented as of this encounter Visit Diagnoses Diagnosis Dyspnea on exertion- Primary Other dyspnea and respiratory abnormality documented in this encounter Advance Directives Documents on File Type Date Recorded Patient Instructional Services Specialist Expl anation POL 11/13/2020 POLST NASREEN VALERIA ORDERS FOR LIFE-SUSTAINING TREATMENT * Full [...] Agents on File Name Relationship Healthcare Agent [facility] laisha Communication Zhen Malia Spouse Health Care Agent Care Teams News Technical Director Relationship Specialty Start Date End Date Luis Fernando Rojas MD [address] [place] [address] PCP - General Family Medicine 09/23/16 documented as of this encounter
--- OUTSIDE RECORDS SUMMARY | 2024-01-09 10:02 | External Medical Summary | Summary of Care ---
Author Name Unknown Organization [facility] Address [address] [place] [address] Phone [phone] Care Team Providers Care Knife Finisher Name Role Phone Luis Fernando Rojas MD Primary Care Provider [phone] Encounter Details Date Type Department Care Team (Late st Contact Info) Description 01/02/2024 Result Scan Unspecified Department Abhay Alves MD [address] [place] [id number] <No scans attached> Allergies Active Allergy Reactions Criticality Noted Date Comments Salvador Inhibitors Other (Please comment) High 0 HyperKalemia documented as of this encounter (statuses as of 01/02/2024) Medications Medication Sig Dispensed Refills Start Date [...] directed. Replace every 14 days (supplied through [facility]) 7 Each 3 05/17/2021 Active CPAP every [...] IN THE MORNING 90 Tablet 1 05/15/2023 Active Additional Information Patient taking differently: 5 [...] 1,000 mcgIndications:S/P gastric bypass 1000 mcg IM [id number] 10/15/2022 07/19/2025 Active vitamin b-12 (Cyanocobalamin) inj 1,000 mcgIndications:Morbid obesity with BMI of 40.0-44.9, adult (HCC),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 [id number] 10/17/2023 12/11/19 25 Active documented as of this encounter (statuses as of 01/02/2024) Active Problems Problem Noted Date Diagnosed Date [...] 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 10/15/2022 [facility] OTHER*[id number] 01/01/2022 S/P gastric bypass 01/01/2022 Marginal ulcer [...] as of this encounter (statuses as of 01/02/2024) Resolved Problems Problem Noted Date Diagnosed Date [...] 10/08/2022 Insulin long-term use 11/19/20182018 Overview: Duplicate senior care (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 insulin 11/19/2018 10/08/2022 Morbid [...] T-tube placement 04/16/2017 05/29/2017 [employer] Other*[id number] 04/13/2013 08/27/2016 Overview: Study Title: Genomic Markers for Patients with Cardiovascular Disease Project # [id number] Sea Shell Gatherer: Siena Laws MD [phone] Hypertensive heart disease 03/25/2013 1 07/29/2016 Neuropathy, [...] as of this encounter (statuses as of 01/02/2024) Immunizations Name Administration Dates Next Due COVID-19 mRNA, LNP-s, No Pre serve, 2-Dose Series (Moderna) 04/09/2021,09/23/2020,08/19/2020 COVID-19, LNP-s, No Preserve , Espinoza-sucrose, Ages 12+ (Pfizer) 01/08/2022 Hepatitis B Vaccine, Recombi nant, Adjuvanted, 20 mcg/mL (Heplisav-B) 09/05/2021,05/09/2021,04/04/2021,02/18 Hepatitis B, 20+ yrs 09/16/2018,04/14/2018,03/1104/11/2018 Pneumococcal Conjugate Vacci ne, 20-valent ([id number]) 12/02/2023(Deferred: - pt states she's already received) [...] Care Team (Late st Contact Info) Description 01/29/2024 9:15 AM EDT Cardiac Studies Cardiac Studies, [facility] [address] [place] [address] 02/09/2024 10:00 AM EDT Office Visit Cardiology, [facility] [address] [place] [address] Ulises Stevenson, [address] [place] [address] 02/26/2024 7:40 AM EDT Office Visit [facility] [address] [facility] [id number] Luis Fernando Rojas MD [address] [facility] [place] [address] 04/01/2024 9:40 AM EDT Office Visit Podiatry [facility] [address] [place] [address] Calli Avila, DPM [address] [facility] [place] [address] 04/27/2024 12:20 PM EDT Office Visit Nutrition & Weight Management, [facility] [address] [place] [address] Cleo Fonseca PA-C [address] [place] [address] Scheduled Procedures Name Priority Associated Diagnoses Date/Ti [...] 04/12/2020, Additional history exists Mammogram 07/08/2024 07/08/2023, 06/20, 04/18/2022, Additional history exists Depression Monitoring 08/14/2024 08/14/2023 Colonoscopy 02/28/2028 02/27/2023, 11/19, 12/02/2013, Additional history [...] this encounter Medical Devices Implanted Type Area Foundry Superintendant Device Identifier Shelf Expiration Date Model / Serial / Lot Coil Vortex 35 Pltinm [id number] - [id number] Implanted:Qty: 1 on 11/27/2021 by Sterling Cates MD at [place] [facility] Right: Upper Arm [employer] : NEURO INTR [id number] 08/15/2024 [id number] Coil Vortex 35 Pltinm [id number] - [id number] Implanted:Qty: 1 on 11/27/2021 by Sterling Cates MD at [place] [facility] Right: Upper Arm [employer] : NEURO INTR [id number] 08/15/2024 [id number] Coil Vortex 35 Pltinm [id number] - [id number] Implanted:Qty: 1 on 11/27/2021 by Sterling Cates MD at [place] [facility] Right: Upper Arm [employer] : NEURO INTR [id number] 08/15/2024 [id number] 1 / / [id number] Coil Vortex 35 Pltinm [id number] - [id number] Implanted:Qty: 1 on 11/27/2021 by Sterling Cates MD at [place] [facility] Right: Upper Arm [employer] : NEURO INTR [id number] 05/16/2024 [id number] / / [id number] Azur 35 Detachable 5mm 11cm - [id number] Implanted:Qty: 1 on 03/19/2022 by Jose Devine MD at [place] [facility] Right: Wrist [employer] [id number] 10/18/2025 [id number] / / [id number] Azur 35 Detachable 5mm 11cm - [id number] Implanted:Qty: 1 on 03/19/2022 by Jose Devine MD at [place] [facility] Right: Wrist [employer] [id number] 06/19/2026 [id number] / / [id number] Mesh Flat Sheet 10x14 [id number] - [id number] Implanted:Qty: 1 on 12/11/2022 by Eros Dash MD at [place] [facility] N/A: Abdomen CR BARD : DAVOL [id number] 06/17/2027 [id number] / / [id number] documented as of this encounter Procedures Procedure Name Priority Date/Time Associated Diagnosis Comments CARDIOLOGY SCANNED RESULT 01/02/2024 documented in this encounter Results * CARDIOLOGY SCANNED RESULT (01/02/2024) 01/02/2024 Abhay Alves MD OTHER documented in this encounter Advance Directives Documents on File Type Date Recorded Patient Mounter Automatic Expl anation POLST 11/13/2020 POLST NASREEN SHAW ORDERS FOR LIFE-SUSTAINING TREATMENT * Full Code [...] Agents on File Name Relationship Healthcare Agent [facility] Communication Zhen Finley Spouse Health Care Agent Care Teams Knife Finisher Relationship Specialty Start Date End Date Luis Fernando Rojas MD [address] [place] [address] PCP - General Family Medicine 09/23/16 documented as of this encounter
--- OUTSIDE RECORDS SUMMARY | 2024-01-09 10:02 | External Medical Summary | Summary of Care ---
Author Name Unknown Organization [facility] Address [address] [place] [address] Phone [phone] Care Team Providers Care Telephone Cleaner Name Role Phone Luis Fernando Rojas MD Primary Care Provider [phone] Reason for Visit * Reason Comments Diabetic Foot Care Encounter Details Date Type Department Care Team (Late st Contact Info) Description 12/30/2023 8:20 AM EDT Office Visit Podiatry [facility] [address] [place] [address] Calli Avila DPM [address] [place] [address] Onychomycosis*; Type 2 diabetes mellitus 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 dialysis, with long-term current use of insulin ([facility]); Hammer toe of right foot; ESRD (end stage renal disease) on dialysis ([facility]) Allergies Active Allergy Reactions Criticality Noted Date Comments Salvador Inhibitors Other (Please comment) High 0 HyperKalemia documented as of this encounter (statuses as of 12/30/2023) Medications Medication Sig Dispensed Refills Start Date End Date Status Melatonin 10 MG Tablet Take 12 mg by mouth at bedtime. Active Aspirin 81 MG Oral Tablet ChewableIndication s:Type 2 diabetes mellitus 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 dialysis, with long-term current use of insulin ([facility]) Take 1 Tab by mouth at bedtime. with food. 90 Tab 3 02/16/2021 Active FreeStyle Jennifer 2 Sensor Use as directed. Replace every 14 days (supplied through [facility] 7 Each 3 05/17/2021 Active CPAP every [...] hemoglobin A1c goal of less than 7.0% ([facility]) Use 4 times daily with insulin 400 [...] 1,000 mcgIndications:S/P gastric bypass 1000 mcg IM [id number] 10/15/2022 07/19/2025 Active vitamin b-12 (Cyanocobalamin) inj 1,000 mcgIndications:Morbid obesity with BMI of 40.0-44.9, adult (HCC),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 [id number] 10/17/2023 12/11/19 25 Active documented as of this encounter (statuses as of 12/30/2023) Active Problems Problem Noted Date Diagnosed Date [...] 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 10/15/2022 [facility] [employer]EARCH OTHER*[id number] 01/01/2022 S/P gastric bypass 01/01/2022 Marginal ulcer [...] on dialysis 03/14/2021 Last Assessment & Plan: [facility] since January, Dr. Magallanes. Renae-W-Briana from 07-25. Has dialysis catheter in the [...] as of this encounter (statuses as of 12/30/2023) Resolved Problems Problem Noted Date Diagnosed Date [...] 10/08/2022 Insulin long-term use 11/19/20182018 Overview: Duplicate assisted (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 insulin 11/19/2018 10/08/2022 Morbid [...] T-tube placement 04/16/2017 05/29/2017 [employer] Other*[id number] 04/13/2013 08/27/2016 Overview: Study Title: Genomic Markers for Patients with Cardiovascular Disease Project # [id number] It Specialist: Siena Laws MD [phone] Hypertensive heart disease 03/25/2013 1 07/29/2016 Neuropathy, [...] as of this encounter (statuses as of 12/30/2023) Immunizations Name Administration Dates Next Due COVID-19 mRNA, LNP-s, No Pre serve, 2-Dose Series (Moderna) 04/09/2021,09/23/2020,08/19/2020 COVID-19, LNP-s, No Preserve , Espinoza-sucrose, Ages 12+ (Pfizer) 01/08/2022 Hepatitis B Vaccine, Recombi nant, Adjuvanted, 20 mcg/mL (Heplisav-B) 09/05/2021,05/09/2021,04/04/2021,02/18 Hepatitis B, 20+ yrs 09/16/2018,04/14/2018,03/1104/11/2018 Pneumococcal Conjugate Vacci ne, 20-valent ([id number]) 12/02/2023(Deferred: - pt states she's already received) [...] 5:21 PM EST Sexual Orientation Straight 06/09/2019 5 :21 PM EST Job Start Date Occupation Industry [...] as of this encounter Progress Notes * Calli Avila, DAIANA - 12/30/2023 8:22 AM EDT Podiatry Established Patient Note [facility] Name: Candi Finley : 1960 Date: 12/30/2023 CHIEF COMPLAINT: Diabetic Nail Care HISTORY OF PRESENT ILLNESS: This patient is a 63 year old female who presents today for diabetic nail care. She has been doing well and states her nails are extremely long. She is currently taking Gabapentin for her neuropathy. Pt denies any other complaints at todays visit. She denies any recent changes in her medical history. Past Medical History: Diagnosis Date Body mass index 40 and over, adult CHF NYHA class I ([facility]) 07/2009 Chronic marginal ulcer Deficiency of other vitamins Vit D Depressive disorder, not elsewhere classified Dialysis patient (HCC) Diverticulosis of colon (without mention of hemorrhage) 12/02/2013 sigmoid & descending colon DM type 2 causing eye disease (HCC) DM type 2 causing neurological disease ([facility]) neuropathy since 2006 DM type 2 causing renal disease ([facility]) DM type 2, goal A1c below [address] Monte Dyslipidemia, goal LDL below 100 primarily high triglycerides Endometrial cancer ([facility]) 1993 ESRD (end stage renal disease) on dialysis ([facility]) 03/14/2021 HTN, goal below 130/80 Kidney disease, chronic, stage III (GFR 30-59 ml/min) ([facility]) 10/02/2011 More specified code listed on PL Historical Malignant melanoma of right upper extremity ([facility]) 05/07/2021 Malignant neoplasm of corpus uteri ([facility]) 1993 Melanoma ([facility]) L calf R arm Motion sickness Neuropathy, diabetic ([facility]) 02/18/2013 Osteoarthritis of hip mild to mod bilat hip pain Other specified anemias low iron Other specified glaucoma denied by patient PONV (postoperative nausea and vomiting) Renal failure hemodialysis SBO (small bowel obstruction) ([facility]) 04/25/2017 Sleep apnea 07/2009 CPAP 11 cm H2O. C-flex 2 Past Surgical History: Procedure Laterality Date ABD WALL HERNIA REPAIR, LAP, REDUCIBLE N/A 01/28/2022 LAPAROSCOPIC VENTRAL/UMBILICAL HERNIA REPAIR, REDUCIBLE W OR W/O MESH performed by Honorio Ashford MD [place] [facility] [place] ACCESS, DIRECT ANASTOMOSIS Right 08/16/2021 ARTERIOVENOUS ANASTOMOSIS OPEN DIRECT ANY SITE performed by Sterling Cates MD at [place] [facility] BREAST BIOPSY Left 12/26/2008 Usual Ductal Hyperplasia BREAST BIOPSY Left 09/20/2010 Benign BX LYMPH NODE DEEP AXIL Right 05/22/2021 BIOPSY LYMPH NODE DEEP AXILLARY OPEN performed by Diamond Rivero MD at OR [facility] COLONOSCOPY, DIAGNOSTIC (RECTUM) 12/02/2013 hyperplastic polyps, diverticulosis, repeat 5 yrs/done @ [facility] COLONOSCOPY, DIAGNOSTIC (RECTUM) 12/11/2017 adenomatous polyps, diverticulosis, repeat 5 yrs/[facility] COLONOSCOPY, DIAGNOSTIC (RECTUM) N/A 02/27/2023 diverticulosis/hemorrhoids/biopsies show adenomatous polyps/recall 5 years/Col[place]oscopy/[place] CORONARY ANGIOGRAPHY W/LEFT HEART CATH 04/13/2013 CORONARY ANGIOGRAPHY W/LEFT HEART CATH performed by Ulises Reed MD at [facility]ARD[facility] DIALYIS CIRCUIT VASCULAR EMBOLIZATION OCCLUSION ENDOVASC IMAGING Right 11/27/2021 EMBOLIZATION DIALYSIS CIRCUIT performed by Sterling Cates MD [place] [facility] EGD, FLEXIBLE, DIAGNOSTIC 05/03/2014 mild-mod inflammation/done @ [facility] EGD, FLEXIBLE, DIAGNOSTIC N/A 04/16/2017 ESOPHAGOGASTRODUODENOSCOPY (EGD), FLEXIBLE, TRANSORAL, DIAGNOSTIC performed by Sukumar Polanco MDa [place] [facility] EGD, FLEXIBLE, DIAGNOSTIC 05/05/2020 mild-mod inflammation on bx / ESOPHAGOGASTRODUODENOSCOPY (EGD), FLEXIBLE, TRANSORAL, DIAGNOSTIC performed by Adin Borja MD at ENDOSCOPY [facility] EGD, FLEXIBLE, DIAGNOSTIC N/A 04/25/2021 ESOPHAGOGASTRODUODENOSCOPY (EGD), FLEXIBLE, TRANSORAL, DIAGNOSTIC performed by Honorio Almendarez MD at[place]OS[place] [facility] EGD, FLEXIBLE, DIAGNOSTIC 06/13/2021 gastrojejunal anastomosis characterized by ulceration, repeat 2 mo / [facility] IDENTIFY SENTINEL NODE, RADIOACTIVE TRACER Right 05/22/2021 INJECTION PROCEDURE FOR IDENTIFICATION SENTINEL NODE performed by Diamond Rivero MD at OR [facility] INFORMATION Left 2019 Pacemaker placement. INTRO CATH DIALYSIS CIRCUIT DX ANGIOGRAPHY FLUORO S&I Right 10/10/2022 AV FISTULOGRAM DIAGNOSTIC performed by Jose Devine MD at OR [facility] INTRO CATH DIALYSIS CIRCUIT W/TRANSCATH PLACEMENT IV STENT Right 03/19/2022 AV FISTULOGRAM STENT & PERIPHERAL ANGIOPLASTY performed by Jose Devine MD at [place] [facility] INTRO CATH DIALYSIS CIRCUIT W/TRANSCATH PLACEMENT IV STENT Right 05/13/2023 AV FISTULOGRAM STENT & PERIPHERAL ANGIOPLASTY performed by Williams Matt MD at [place] [facility] INTRO CATH DIALYSIS CIRCUIT W/TRANSCATH PLACEMENT IV STENT Right 12/02/2023 AV FISTULOGRAM STENT & PERIPHERAL ANGIOPLASTY performed by Micheal Urena MD at [place] [facility] INTRO CATH DIALYSIS CIRCUIT W/TRANSLUM BALLOON ANGIOPLASTY Right 11/27/2021 AV FISTULOGRAM & PERIPHERAL ANGIOPLASTY performed by Sterling Cates MD at [place] [facility] INTRO CATH DIALYSIS CIRCUIT W/TRANSLUM BALLOON ANGIOPLASTY Right 05/30/2022 AV FISTULOGRAM & PERIPHERAL ANGIOPLASTY performed by Beto Torrez MD at OR [facility] INTRO CATH DIALYSIS CIRCUIT W/TRANSLUM BALLOON ANGIOPLASTY Right 02/25/2023 AV FISTULOGRAM & PERIPHERAL ANGIOPLASTY performed by Jose Devine MD at [place] [facility] IR DUPLEX ULTRASOUND (FOR INTERVENTIONAL RADIOLOGY USE ONLY) 03/02/2021 IR VENOUS ACCESS NON-MEDIPORT 07/18/2022 LAPAROSCOPE PROCEDURE, LIVER N/A 04/16/2017 UNLISTED LAPAROSCOPIC PROCEDURE LIVER performed by Sukumar Polanco MD at [facility] LAPAROSCOPE PROCEDURE, LIVER N/A 01/28/2022 UNLISTED LAPAROSCOPIC PROCEDURE LIVER performed by Honorio Ashford MD [place] [facility] LAPAROSCOPIC GASTRIC BYPASS/JODY-EN-Y N/A 04/16/2017 LAPAROSCOPIC GASTRIC RESTRICTIVE BYPASS JODY EN Y performed by Sukumar Polanco MD at [facility] LAPAROSCOPY; CHOLECYSTECTOMY N/A 04/16/2017 LAPAROSCOPIC CHOLECYSTECTOMY performed by Sukumar Polanco MD at [place] [facility] MISCELLANEOUS ORDER ([facility] ONLY) 05/2009 breast biopsy/ Usual ductal hyperplasia MISCELLANEOUS ORDER ([facility] ONLY) 1990 arthroscopic knee (right) MISCELLANEOUS ORDER ([facility] ONLY) 09/20/2010 left breast mass excision(ductal hyperplasia) Dr. Bowman 09/20/10 MISCELLANEOUS ORDER ([facility] ONLY) 09/2016 Right Knee Artrhroscopy and Hematoma Drained on Left Knee following fall MISCELLANEOUS ORDER ([facility] ONLY) 11/19/2018 pacemaker OTHER " cancer sx or right arm" - patient unsure what they did. REMOVE TONSILS & ADENOIDS, UNDER 12 1965 REPAIR INITIAL INCISIONAL OR VENTRAL HERNIA; REDUCIBLE N/A 04/24/2017 REPAIR INITIAL INCISIONAL /VENTRAL HERNIA REDUCIBLE performed by Sukumar Polanco MD at [place] [facility] REPLACE,COMP,FLACO CENT ACC DEV N/A 03/22/2021 REPLACEMENT COMPLETE TUNNELED CENTRAL CATHETER NO PORT performed by Luis Fernando Hassan DO at OR [facility] REVISE STOMACH-BOWEL FUSION N/A 01/28/2022 REVISION GASTROJEJUNAL ANASTOMOSIS performed by Honorio Ashford MD at OR [facility] MALG LSN TRK/ARM/LG >4.0CM Right 05/22/2021 EXCISION MALIGNANT TRUNK ARM LEG OVER 4CM performed by Diamond Rivero MD at [facility] RPR AA HERNIA 1ST 3-10 CM REDUCIBLE N/A 12/11/2022 INCISIONAL/VENTRAL/SPIGELIAN HERNIA REPAIR INITIAL 3-10 CM REDUCIBLE performed by Eros Dash MD at [place] [facility] TOTAL ABD HYSTERECTOMY W/WO REMOVAL OF TUBE(S) Bilateral age 33 TOTAL HYSTERECTOMY TAHBSO (endometrial ca) TRANSECTION VAGUS NRV,TRUNCAL N/A 01/28/2022 LAPAROSCOPIC TRANSECTION VAGUS NERVES TRUNCAL performed by Honorio Ashford MD at [place] [facility] UPPER GI ENDOSCOPY Family History Problem Relation Name Age of Onset Hypertension Mother Ovarian cancer Mother Breast Cancer Mother 68 Cancer Father melanoma Heart Disorder Father Stroke Father Heart Disorder Sister CAD with PCI in 50's Glaucoma Sister Ovarian cancer Aunt (Paternal) 30 Colon cancer Grandmother (Maternal) 45 Diabetes Grandfather (Maternal) Diabetes Grandmother (Paternal) Diabetes Grandfather (Paternal) Heart disease Grandfather (Paternal) Breast Cancer Aunt (Paternal) Breast Cancer Cousin (Paternal) Social History Socioeconomic History Marital status: Spouse name: Not on file Number of children: 0 Years of education: Not on file Highest education level: Not on file Occupational History Employer: [employer] Financial resource strain: Not on file Food insecurity: Worry: Not on file Inability: Not on file Transportation needs: Medical: Not on file Non-medical: Not on file Tobacco Use Smoking status: Never Smoker Smokeless tobacco: Never Used Substance and Sexual Activity Alcohol use: No Drug use: No Sexual activity: Yes Partners: Male control/protection: Surgical Comment: hysterectomy Lifestyle Physical activity: Days per week: Not on file Minutes per session: Not on file Stress: Not on file Relationships Social connections: Talks on phone: Not on file Gets together: Not on file Attends yazidi service: Not on file Active member of club or organization: Not on file Attends meetings of clubs or organizations: Not on file Relationship status: Not on file Intimate partner violence: Fear of current or ex partner: Not on file Emotionally abused: Not on file Physically abused: Not on file Forced sexual activity: Not on file Other Topics Concern Not on file Social History Narrative Employed: [employer] Current Outpatient Medications Medication Sig Dispense Refill Melatonin 10 MG Tablet Take 12 mg by mouth at bedtime. Aspirin 81 MG Oral Tablet Chewable Take 1 Tab by mouth at bedtime. with food. 90 Tab 3 FreeStyle Jennifer 2 Sensor Use as directed. Replace every 14 days (supplied through [facility] 7 Each 3 CPAP every night at bedtime. 12 Ketoconazole 2 % External Shampoo (Nizoral) Apply to scalp once weekly. Lather and leave on for 5 minutes before rinsing. Alternate with over the counter anti- dandruff shampoos on off days. (Patient not taking: Reported on 12/26/2023) 120 mL 5 ProRenal + D Oral Tablet Take by [...] pain continues, call 911. 25 Tablet 11 Acetaminophen 325 MG Oral Tablet (Tylenol) Take 2 Tablets by mouth every 6 hours as needed. Citalopram Hydrobromide 40 MG Oral Tablet (CeleXA) [...] by mouth at bedtime.) 90 Tablet 1 Abrysvo 120 MCG/0.5ML Intramuscular Solution Reconstituted (RSV Pre-Fusion F A&B Vac [facility]) Inject IM as directed (Patient not taking: Reported on 12/01/2023) 1 Each 0 Levothyroxine Sodium 100 MCG Oral Tablet (Levoxyl) [...] BY MOUTH EVERY EVENING 90 Tablet 3 Semaglutide(0.25 or 0.5MG/DOS) 2 MG/3ML Solution Pen-injector (Ozempic) Inject 0.25 mg under the skin for 4 weeks, then increase to 0.5 mg weekly thereafter (Patient not taking: Reported on 12/26/2023)3 mL 3 Insulin Glargine Solostar 100 UNIT/ML Subcutaneous [...] Apply to affected area 100 g 2 Current Facility-Administered Medications Medication Dose Route Frequency Provider Last Rate Last Admin vitamin b-12 (Cyanocobalamin) inj 1,000 mcg 1,000 mcg Intramuscular Q12 Weeks Luis Fernando Rojas MD 1,000 mcg at 01/02/23 1242 vitamin b-12 (Cyanocobalamin) inj 1,000 mcg 1,000 mcg Intramuscular Q12 Weeks Cleo Fonseca PA-C ALLERGIES: Review of patient's allergies indicates: Allergen Reactions Salvador Inhibitors Other (Please comment) HyperKalemia REVIEW OF SYSTEMS: CONSTITUTIONAL: No change in weight, No weakness, No fatigue and No fevers, sweats, or chills EYE: No recent significant change in vision and No eye pain, redness, discharge EARS: No ear pain and No recent change in hearing NOSE: No history of frequent colds or sinusitis and No nasal stuffiness PULMONARY: No cough, sputum, or hemoptysis and No recent change in breathing CARDIOVASCULAR: No chest pain, No shortness of breath, No palpitations and No syncope EXTREMITIES: No pain, redness or swelling on the joints SKIN/INTEGUMENTARY: No edema, No rash and No itching NEUROLOGIC: Normal balance, No headaches, No seizures and No weakness PSYCHIATRIC: No depression, No anxiety and No psychosis FOCUSED PODIATRIC EXAM: Vitals: There were no vitals filed for this visit. General: Patient is awake alert oriented to person place time. No apparent distress. Vascular: DP/PT pulses palpable, almaz. CFT < 3 sec 1-5, almaz. No edema noted, almaz. Temperature gradient is normal warm to cold, almaz. Neurologic: Protective sensation intact to light touch, almaz. Sensation to sharp/dull is intact, almaz. Proprioception is intact, almaz. Vibratory sensation intact, almaz. Protective sensation to 5.07 monofilament is absent, almaz. There is no babinski response elicited, almaz. Ankle clonus is absent, almaz. Dermatological: Skin is normal in appearance with no open lesions or interdigital macerations, almaz. Nails 1-5, almaz are elongated and thickened. Pedal hair is noted, almaz. HPK noted to bilateral plantar/medial 1st MPJ. Pinch callus noted, almaz. Musculoskeletal: No POP noted, almaz. No pain with active or passive ROM of the digits or ankle joint, almaz. Muscle strength is 5/5 for all muscle groups of the lower extremity, almaz. Hammertoes, 2-5, almaz. DIAGNOSTIC STUDIES: None ASSESSMENT: 1. Onychomycosis 2. DM2 with neuropathy 3. Hammertoe, 2-5, almaz 4. Callus PLAN: - Discussed the importance of maintaining a controlled blood sugar and to check her feet daily. - Nails 1-5, almaz were both sharply debrided with a nail nipper and mechanically debrided to appropriate length and thickness without incident with an electric bur. - Continue wearing diabetic supportive shoes. - Pt to RTC in 3 months for further care. Instructed pt to call sooner with any problems or questions. Calli Avila DPM documented in this encounter Nursing Notes * Redin, Elisa, PROTECTIVE SIGNAL REPAIRER HELPER - 12/30/2023 8:19 AM EDT Pt presents for routine diabetic nail care, no pain in feet. BSG 132 this morning. documented in this encounter Plan of Treatment Upcoming Encounters Date Type Department Care Team (Late st Contact Info) Description 12/30/2023 1:00 PM EDT Telemedicine Pharmacy, [place] [address] [place] [facility] [place] [address] [facility] [address] [place] [facility] [place] [address] 01/29/2024 9:15 AM EDT Cardiac Studies Cardiac Studies, [facility] [address] [facility] [place] [address] 02/09/2024 10:00 AM EDT Office Visit Cardiology, [facility] [address] [facility] [place] [address] Ulises Stevenson, [address] [facility] [place] [address] 02/26/2024 7:40 AM EDT Office Visit Family [facility], [place] [address] [place] [facility] [place] [id number] Luis Fernando Rojas MD [address] [facility] [place] [address] 04/01/2024 9:40 AM EDT Office Visit Podiatry [facility] [address] [facility] [place] [address] Calli Avila DPM [address] [facility] [place] [address] 04/27/2024 12:20 PM EDT Office Visit Nutrition & Weight Management, [facility] [address] [place] [address] Cleo Fonseca PA-C [address] [place] [address] Scheduled Procedures Name Priority Associated Diagnoses Date/Ti [...] this encounter Medical Devices Implanted Type Area Records Management Specialist Device Identifier Shelf Expiration Date Model / Serial / Lot Coil Vortex 35 Pltinm [id number] - [id number] Implanted:Qty: 1 on 11/27/2021 by Sterling Cates MD [place] [facility] Right: Upper Arm [employer] : NEURO INTR [id number] 08/15/2024 [id number] / / [id number] Coil Vortex 35 Pltinm [id number] - [id number] Implanted:Qty: 1 on 11/27/2021 by Sterling Cates MD [place] [facility] Right: Upper Arm [employer] : NEURO INTR [id number] 08/15/2024 [id number] / / [id number] Coil Vortex 35 Pltinm [id number] - [id number] Implanted:Qty: 1 on 11/27/2021 by Sterling Cates MD [place] [facility] Right: Upper Arm [employer] : NEURO INTR [id number] 08/15/2024 [id number] / / [id number] Coil Vortex 35 Pltinm [id number] - [id number] Implanted:Qty: 1 on 11/27/2021 by Sterling Cates MD [place] [facility] Right: Upper Arm [employer] : NEURO INTR [id number] 05/16/2024 [id number] / / [id number] Azur 35 Detachable 5mm 11cm - [id number] Implanted:Qty: 1 on 03/19/2022 by Jose Devine MD [place] [facility] Right: Wrist [employer] [id number] 10/18/2025 [id number] / / [id number] Azur 35 Detachable 5mm 11cm - [id number] Implanted:Qty: 1 on 03/19/2022 by Jose Devine MD [place] [facility] Right: Wrist [employer] [id number] 06/19/2026 [id number] / / [id number] Mesh Flat Sheet 10x14 [id number] - [id number] Implanted:Qty: 1 on 12/11/2022 by Eros Dash MD [place] [facility] N/A: Abdomen CR BARD : DAVOL [id number] 06/17/2027 [id number] / / [id number] documented as of this encounter Visit Diagnoses Diagnosis Onychomycosis- Primary Dermatophytosis of nail Type 2 diabetes mellitus 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 dialysis, with long-term current use of insulin ([facility]) Hammer toe of right foot ESRD (end stage renal disease) on dialysis ([facility]) End stage renal disease documented in this encounter Advance Directives Documents on File Type Date Recorded Patient Manager Of Administration Expl anation POLST 11/13/2020 POLST PENNSYLVA VALERIA [...] Finley Spouse Health Care Agent Care Teams Telephone Cleaner Relationship Specialty Start Date End Date Luis Fernando Rojas MD [address] [facility] [place] [address] PCP - General Family Medicine 09/23/16 documented as of this encounter
--- OUTSIDE RECORDS SUMMARY | 2024-01-09 10:03 | External Medical Summary | Summary of Care ---
Author Name Unknown Organization [facility] Address [address] [place] [address] Phone [phone] Care Team Providers Care Talent Acquisition Consultant Name Role Phone Luis Fernando Rojas MD Primary Care Provider [phone] Encounter Details Date Type Department Care Team (Late st Contact Info) Description 12/09/2023 Population Health External Data Unspecified Department Allergies Active Allergy Reactions Criticality Noted Date Comments Salvador Inhibitors Other (Please comment) High 0 HyperKalemia documented as of this encounter (statuses as of 12/10/2023) Medications Medication Sig Dispensed Refills Start Date [...] directed. Replace every 14 days (supplied through [facility]) 7 Each 3 05/17/2021 Active CPAP every [...] call 911. 25 Tablet 11 04/26/2022 Active Additional Information Patient not taking.Informant: Patient, Reported on 12/01/2023 Acetaminophen 325 MG Oral Tablet (Tylenol) Take 2 Tablets by mouth every 6 hours as needed. Active hydrALAZINE HCl 100 MG Oral TabletIndications: HTN, goal below 140/90 TAKE 1 TABLET BY MOUTH EVERY DAY IN THE MORNING AND 1 TABLET AT NOON, AND 1 TABLET AT BEDTIME 270 Tablet 2 12/11/2022 4 Active Carvedilol 12.5 MG Oral Tablet (Coreg)Indications :HTN, goal below 140/90 TAKE ONE TABLET BY MOUTH EVERY DAY IN THE MORNING AND TAKE ONE TABLET BY MOUTH EVERY DAY BEFORE BEDTIME 180 Tablet 4 12/11/2022 4 Active Citalopram Hydrobromide 40 MG Oral Tablet [...] 1,000 mcgIndications:S/P gastric bypass 1000 mcg IM [id number] 10/15/2022 07/19/2025 Active vitamin b-12 (Cyanocobalamin) inj 1,000 mcgIndications:Morbid obesity with BMI of 40.0-44.9, adult (HCC),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 [id number] 10/17/2023 12/11/19 25 Active documented as of this encounter (statuses as of 12/10/2023) Active Problems Problem Noted Date Diagnosed Date [...] 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 10/15/2022 M[facility] RESEARCH OTHER*[id number] 01/01/2022 S/P gastric bypass 01/01/2022 Marginal ulcer [...] as of this encounter (statuses as of 12/10/2023) Resolved Problems Problem Noted Date Diagnosed Date [...] 10/08/2022 Insulin long-term use 11/19/20182018 Overview: Duplicate group home (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 insulin 11/19/2018 10/08/2022 Morbid [...] T-tube placement 04/16/2017 05/29/2017 [employer] Other*[id number] 04/13/2013 08/27/2016 Overview: Study Title: Genomic Markers for Patients with Cardiovascular Disease Project # [id number] Hunting Sales Associate: Siena Laws MD [phone] Hypertensive heart disease 03/25/2013 1 07/29/2016 Neuropathy, [...] as of this encounter (statuses as of 12/10/2023) Immunizations Name Administration Dates Next Due COVID-19 mRNA, LNP-s, No Pre serve, 2-Dose Series (Moderna) 04/09/2021,09/23/2020,08/19/2020 COVID-19, LNP-s, No Preserve , Espinoza-sucrose, Ages 12+ (Pfizer) 01/08/2022 Hepatitis B Vaccine, Recombi nant, Adjuvanted, 20 mcg/mL (Heplisav-B) 09/05/2021,05/09/2021,04/04/2021,02/18 Hepatitis B, 20+ yrs 09/16/2018,04/14/2018,03/1104/11/2018 Pneumococcal Conjugate Vacci ne, 20-valent (Gcnvyxy70) 12/02/2023(Deferred: - pt states she's already received) [...] 04/12/2020 TDAP (age 10 and older)(Boostrix) 04/12/2020 TDAP (age 11 and older)(Adacel) 04/05/2010 Zoster Vaccine Recombinant (Shingrix) 12/13/2020 ,10/12/2020 [...] 12/30/2023 8:20 AM EDT Office Visit Podiatry [facility] [address] [address] Calli Avila DPM [address] [place] [address] 12/30/2023 1:00 PM EDT [address] [address] [facility] [address] [place] [address] 02/13/2024 10:40 AM EDT Telemedicine Nutrition & Weight Management, [facility] [address] [place] [place] [address] Katya Delaney RDN [address] [place] [address] 04/27/2024 12:20 PM EDT Office Visit Nutrition & Weight Management, [facility] [address] [place] [address] Cleo Fonseca PA-C [address] [place] [address] Scheduled Procedures Name Priority Associated Diagnoses Date/Ti me COLONOSCOPY FLEXIBLE PROXIMA L DIAGNOSTIC Recall History of colonic polyps Health Maintenance Due Date Last Done Comments Cologuard 12/23/2003 Fecal Occult Blood Test 12/23/2003 Sigmoidoscopy 12/23/2003 Pneumococcal Vaccine: Pediatrics (0 to 5 Years) and At-Risk Patients (6 to 64 Years) (3 of 3 - PCV) 08/30/2015 08/30/2014, 09/18/2013, 07/28/2007 Diabetic Eye Exam 12/13/2022 12/13/2021, , 12/13/2021, Additional history exists TSH 01/23/2023 01/23/2022, 07/21, 05/18/2021, Additional history exists HbA1c 06/14/2023 12/12/2022, 06/20, 10/01/2021, Additional history exists Diabetic Foot Exam 10/16/2023 [...] Completed 04/17/2023, 04/20/2022, 05/08/2021, Additional history exists COVID-19 Vaccine Completed 06/02/2023, , 04/09/2021, Additional history exists Hepatitis B Completed 07/09/2023, 08/21, 05/09/2021, Additional history exists GARDASIL-HPV IMMUNIZATION SERIES Aged Out No longer eligible based on patient's age to complete this topic MENINGOCOCCAL (MENACTRA/MENVEO) Aged Out No longer eligible based on patient's age to complete this topic documented as of this encounter Medical Devices Implanted Type Area Shirt Marker Device Identifier Shelf Expiration Date Model / Serial / Lot Coil Vortex 35 Pltinm [id number] - [id number] Implanted:Qty: 1 on 11/27/2021 by Sterling Cates MD at OR [facility] [place] Right: Upper Arm [employer] : NEURO INTR [id number] 08/15/2024 [id number] Coil Vortex 35 Pltinm [id number] - [id number] Implanted:Qty: 1 on 11/27/2021 by Sterling Cates MD at OR [facility] [place] Right: Upper Arm [employer] : NEURO INTR [id number] 08/15/2024 [id number] Coil Vortex 35 Pltinm [id number] - [id number] Implanted:Qty: 1 on 11/27/2021 by Sterling Cates MD at OR [facility] [place] Right: Upper Arm [employer] : NEURO INTR [id number] 08/15/2024 [id number] / / [id number] Coil Vortex 35 Pltinm [id number] - [id number] Implanted:Qty: 1 on 11/27/2021 by Sterling Cates MD at OR [facility] [place] Right: Upper Arm [employer] : NEURO INTR [id number] 05/16/2024 [id number] / / [id number] Azur 35 Detachable 5mm 11cm - [id number] Implanted:Qty: 1 on 03/19/2022 by Jose Devine MD at OR [facility] [place] Right: Wrist [employer] [id number] 10/18/2025 [id number] / / [id number] Azur 35 Detachable 5mm 11cm - [id number] Implanted:Qty: 1 on 03/19/2022 by Jose Devine MD at OR [facility] Right: Wrist [employer] [id number] 06/19/2026 [id number] / / [id number] Mesh Flat Sheet 10x14 [id number] - [id number] Implanted:Qty: 1 on 12/11/2022 by Eros Dash MD at OR [facility] N/A: Abdomen CR BARD : DAVOL [id number] 06/17/2027 [id number] / / [id number] documented as of this encounter Advance Directives Documents on File Type Date Recorded Patient Homeworker Expl anation POLST 11/13/2020 POLST PENNSYLVA VALERIA [...] Agents on File Name Relationship Healthcare Agent [facility] p Communication Zhen Finley Spouse Health Care Agent Care Teams Talent Acquisition Consultant Relationship Specialty Start Date End Date Luis Fernando Rojas MD [address] [place] [address] PCP - General Family Medicine 09/23/16 documented as of this encounter
--- OUTSIDE RECORDS SUMMARY | 2024-01-09 10:03 | External Medical Summary | Summary of Care ---
Author Name Unknown Organization [facility] Address [address] [place] [address] Phone [phone] Care Team Providers Care Fur Joiner Name Role Phone Luis Fernando Rojas MD Primary Care Provider [phone] Reason for Visit * Reason Onset Date Comments Returning Call 12/12/2023 Advised of Mpayy Encounter Details Date Type Department Care Team (Late st Contact Info) Description 12/12/2023 Telephone [facility] [address] [place] [address] Cleo Brantley CRNP [address] [place] [address] Returning Call (Advised of message ) Allergies Active Allergy Reactions Criticality Noted Date Comments Salvador Inhibitors Other (Please comment) High 0 HyperKalemia documented as of this encounter (statuses as of 12/16/2023) Medications Medication Sig Dispensed Refills Start Date [...] 1,000 mcgIndications:S/P gastric bypass 1000 mcg IM [id number] 10/15/2022 07/19/2025 Active vitamin b-12 (Cyanocobalamin) inj 1,000 mcgIndications:Morbid obesity with BMI of 40.0-44.9, adult (HCC),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 [id number] 10/17/2023 12/11/19 25 Active documented as of this encounter (statuses as of 12/16/2023) Active Problems Problem Noted Date Diagnosed Date [...] 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 10/15/2022 M[facility] RESEARCH OTHER*[id number] 01/01/2022 S/P gastric bypass 01/01/2022 Marginal ulcer [...] as of this encounter (statuses as of 12/16/2023) Resolved Problems Problem Noted Date Diagnosed Date [...] 10/08/2022 Insulin long-term use 11/19/20182018 Overview: Duplicate jail (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 insulin 11/19/2018 10/08/2022 Morbid [...] T-tube placement 04/16/2017 05/29/2017 [employer] Other*[id number] 04/13/2013 08/27/2016 Overview: Study Title: Genomic Markers for Patients with Cardiovascular Disease Project # [id number] Electronics Engineering Technician: Siena Laws MD [phone] Hypertensive heart disease 03/25/2013 1 07/29/2016 Neuropathy, [...] as of this encounter (statuses as of 12/16/2023) Immunizations Name Administration Dates Next Due COVID-19 mRNA, LNP-s, No Pre serve, 2-Dose Series (Moderna) 04/09/2021,09/23/2020,08/19/2020 COVID-19, LNP-s, No Preserve , Espinoza-sucrose, Ages 12+ (Pfizer) 01/08/2022 Hepatitis B Vaccine, Recombi nant, Adjuvanted, 20 mcg/mL (Heplisav-B) 09/05/2021,05/09/2021,04/04/2021,02/18 Hepatitis B, 20+ yrs 09/16/2018,04/14/2018,03/1104/11/2018 Pneumococcal Conjugate Vacci ne, 20-valent (Sexynvc14) 12/02/2023(Deferred: - pt states she's already received) [...] No 12/11/2022 documented as of this encounter Miscellaneous Notes * Telephone Encounter - Mandi Cruz OSA - 12/16/2023 8:57 AM EDT Advised patient of message /no further questions * Telephone Encounter - Yashira Pandya LPN - 12/12/2023 3:02 PM EDT Called [facility]-- Spoke to Hina. She is faxing over labs attn me. documented in this encounter Plan of Treatment Upcoming Encounters Date Type Department Care Team (Late st Contact Info) Description 12/30/2023 8:20 AM EDT Office Visit Podiatry [facility] [address] [place] [address] Calli Avila, DPRenae [address] [place] [address] 12/30/2023 1:00 PM EDT Telemedicine Pharmacy, [place] [address] [place] [address] [facility] [address] [place] [address] 02/26/2024 7:40 AM EDT Office Visit Family Practice, [place] [address] [place] [address] Luis Fernando Rojas MD [address] [place] [address] 03/29/2024 11:00 AM EDT Office Visit Cardiology, [facility] [address] [place] [address] Ulises Stevenson, [address] [place] [address] 04/27/2024 12:20 PM EDT Office Visit Nutrition & Weight Management, [facility] [address] [address] Cleo Fonseca PA-C [address] [place] [address] Scheduled Procedures Name Priority Associated Diagnoses Date/Ti [...] this encounter Medical Devices Implanted Type Area Audio Visual Design Engineer Device Identifier Shelf Expiration Date Model / Serial / Lot Coil Vortex 35 Pltinm [id number] - [id number] Implanted:Qty: 1 on 11/27/2021 by Sterling Cates [place] [facility] [place]: Upper Arm [employer] : NEURO INTR [id number] 08/15/2024 [id number] / / [id number] Coil Vortex 35 Pltinm [id number] - [id number] Implanted:Qty: 1 on 11/27/2021 by Sterling Cates MD [place] [facility]: Upper Arm [employer] : NEURO INTR [id number] 08/15/2024 [id number] / / [id number] Coil Vortex 35 Pltinm [id number] - [id number] Implanted:Qty: 1 on 11/27/2021 by Sterling Cates MD at [place] [facility]: Upper Arm [employer] : NEURO INTR [id number] 08/15/2024 [id number] / / [id number] Coil Vortex 35 Pltinm [id number] - [id number] Implanted:Qty: 1 on 11/27/2021 by Sterling Cates MD at [place] [facility]: Upper Arm [employer] : NEURO INTR [id number] 05/16/2024 [id number] / / [id number] Azur 35 Detachable 5mm 11cm - [id number] Implanted:Qty: 1 on 03/19/2022 by Jose Devine MD at [place] [facility]: Wrist [employer] [id number] 10/18/2025 [id number] / / [id number] Azur 35 Detachable 5mm 11cm - [id number] Implanted:Qty: 1 on 03/19/2022 by Jose Devine MD at [place] [facility] Right: Wrist [employer] [id number] 06/19/2026 [id number] / / [id number] Mesh Flat Sheet 10x14 [id number] - [id number] Implanted:Qty: 1 on 12/11/2022 by Eros Dash MD at [place] [facility] N/A: Abdomen CR BARD : DAVOL [id number] 06/17/2027 [id number] / / [id number] documented as of this encounter Advance Directives Documents on File Type Date Recorded Patient Geriatric Assistant Saranya FIGUEROA 11/13/2020 [facility] ORDERS FOR LIFE-SUSTAINING TREATMENT * Full [...] Agents on File Name Relationship Healthcare Agent [facility] Communication Zhen Finley Spouse Health Care Agent Care Teams Fur Joiner Relationship Specialty Start Date End Date Luis Fernando Rojas MD [address] [place] [address] PCP - General Family Medicine 09/23/16 documented as of this encounter
--- OUTSIDE RECORDS SUMMARY | 2024-01-09 10:03 | External Medical Summary | Summary of Care ---
Author Name Unknown Organization [facility] Address [address] [place] [address] Phone [phone] Care Team Providers Care Deep Fryer Assembler Name Role Phone Luis Fernando Rojas MD Primary Care Provider [phone] Reason for Visit * Reason Onset Date Comments Advice 12/10/2023 Encounter Details Date Type Department Care Team (Late st Contact Info) Description 12/10/2023 Telephone [facility] [address] [place] [address] Luis Fernando Rojas MD [address] [place] [address] Advice Allergies Active Allergy Reactions Criticality Noted Date Comments Salvador Inhibitors Other (Please comment) High 0 HyperKalemia documented as of this encounter (statuses as of 12/11/2023) Medications Medication Sig Dispensed Refills Start Date [...] 1,000 mcgIndications:S/P gastric bypass 1000 mcg IM [id number] 10/15/2022 07/19/2025 Active vitamin b-12 (Cyanocobalamin) inj 1,000 mcgIndications:Morbid obesity with BMI of 40.0-44.9, adult (HCC),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 [id number] 10/17/2023 12/11/19 25 Active documented as of this encounter (statuses as of 12/11/2023) Active Problems Problem Noted Date Diagnosed Date [...] 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 10/15/2022 MOR[facility] RESEARCH OTHER*[id number] 01/01/2022 S/P gastric bypass 01/01/2022 Marginal ulcer [...] as of this encounter (statuses as of 12/11/2023) Resolved Problems Problem Noted Date Diagnosed Date [...] 10/08/2022 Insulin long-term use 11/19/20182018 Overview: Duplicate custodial (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 insulin 11/19/2018 10/08/2022 Morbid [...] Obesity protocol #1 BMI 40.0-44.9, adult 04/16/2017 11/16/2 018 Overview: Per Obesity protocol #1 Acute postoperative abdominal pain 04/16/2017 05/29/2017 History of knee surgery 04/16/201703/2017 History of cardiac catheterization 04/16/2017 05/29/2017 History of biliary T-tube placement 04/16/2017 05/29/2017 [employer] Other*[id number] 04/13/2013 08/27/2016 Overview: Study Title: Genomic Markers for Patients with Cardiovascular Disease Project # [id number] Stage Electrician: Siena Laws MD [phone] Hypertensive heart disease 03/25/2013 1 07/29/2016 Neuropathy, [...] as of this encounter (statuses as of 12/11/2023) Immunizations Name Administration Dates Next Due COVID-19 mRNA, LNP-s, No Pre serve, 2-Dose Series (Moderna) 04/09/2021,09/23/2020,08/19/2020 COVID-19, LNP-s, No Preserve , Espinoza-sucrose, Ages 12+ (Pfizer) 01/08/2022 Hepatitis B Vaccine, Recombi nant, Adjuvanted, 20 mcg/mL (Heplisav-B) 09/05/2021,05/09/2021,04/04/2021,02/18 Hepatitis B, 20+ yrs 09/16/2018,04/14/2018,03/1104/11/2018 Pneumococcal Conjugate Vacci ne, 20-valent (Keefedg08) 12/02/2023(Deferred: - pt states she's already received) [...] encounter Miscellaneous Notes * Telephone Encounter - Madalyn Fiore PHARM Tech - 12/11/2023 9:06 AM EDT Pt calling back. Advised pt of message. Transferred pt to scheduling. Thanks, Madalyn Fiore Senior Health Physics Technician [facility] 12/11/2023,9:07 AM * Telephone Encounter - Rosa Betts LPN - 12/11/2023 9:03 AM EDT Called patient. Left message on answering machine to call office. * Telephone Encounter - Luis Fernando Rojas MD - 12/10/2023 5:07 PM EDT Please notify Pt: I would decrease the Ozempic to .25mg and see if diarrhea improves. As far as the shortness of breath, She needs seen in office or in ER. * Telephone Encounter - Marbella Pruitt OSA - 12/10/2023 11:33 AM EDT Patient calling with questions regarding Ozempic-since taken most recent dose she has had diarrhea everytime she eats something. Please call to advise what she should do or is this normal documented in this encounter Plan of Treatment Upcoming Encounters Date Type Department Care Team (Late st Contact Info) Description 12/12/2023 12:20 PM EDT Office Visit Family Practice [facility] [address] [address] Cleo Brantley CRNP [address] [place] [address] 12/30/2023 8:20 AM EDT Office Visit Podiatry [facility] [address] [address] Calli Avila DPM [address] [place] [address] 12/30/2023 1:00 PM EDT [facility]icine Pharmacy, [place] [address] [address] [place] [address] [facility] [address] 04/27/2024 12:20 PM EDT Office Visit Nutrition & Weight Management, [facility] [address] [place] [address] Cleo Fonseca PA-C [address] [place] [address] Scheduled Procedures Name Priority Associated Diagnoses Date/Ti [...] this encounter Medical Devices Implanted Type Area Rn Provider Relations Device Identifier Shelf Expiration Date Model / Serial / Lot Coil Vortex 35 Pltinm [id number] - [id number] Implanted:Qty: 1 on 11/27/2021 by Sterling Cates MD at [place] [facility] [place] Right: Upper Arm [employer] : NEURO INTR [id number] 08/15/2024 [id number] Coil Vortex 35 Pltinm [id number] - [id number] Implanted:Qty: 1 on 11/27/2021 by Sterling Cates MD at OR [facility] Right: Upper Arm [employer] : NEURO INTR [id number] 08/15/2024 [id number] Coil Vortex 35 Pltinm [id number] - [id number] Implanted:Qty: 1 on 11/27/2021 by Sterling Cates MD at OR [facility] Right: Upper Arm [employer] : NEURO INTR [id number] 08/15/2024 [id number] Coil Vortex 35 Pltinm [id number] - [id number] Implanted:Qty: 1 on 11/27/2021 by Sterling Cates MD at OR [facility] Right: Upper Arm [employer] : NEURO INTR [id number] 05/16/2024 [id number] Azur 35 Detachable 5mm 11cm - [id number] Implanted:Qty: 1 on 03/19/2022 by Jose Devine MD at OR [facility] Right: Wrist [employer] [id number] 10/18/2025 [id number] / / [id number] Azur 35 Detachable 5mm 11cm - [id number] Implanted:Qty: 1 on 03/19/2022 by Jose Devine MD at OR [facility] Right: Wrist [employer] [id number] 06/19/2026 [id number] / / [id number] Mesh Flat Sheet 10x14 [id number] - [id number] Implanted:Qty: 1 on 12/11/2022 by Eros Dash MD at OR [facility] N/A: Abdomen CR BARD : DAVOL [id number] 06/17/2027 [id number] / / [id number] documented as of this encounter Advance Directives Documents on File Type Date Recorded Patient Pouncing Lathe Operator Expl anation POLST 11/13/2020 POLST PENNSYLVA VALERIA [...] Agents on File Name Relationship Healthcare Agent [facility] p Communication Zhen Finley Spouse Health Care Agent Care Teams Deep Fryer Assembler Relationship Specialty Start Date End Date Luis Fernando Rojas MD [address] [place] [address] PCP - General Family Medicine 09/23/16 documented as of this encounter
--- OUTSIDE RECORDS SUMMARY | 2024-01-09 10:03 | External Medical Summary | Summary of Care ---
Author Name Unknown Organization [facility] Address [address] [place] [address] Phone [phone] Care Team Providers Care Property Master Name Role Phone Luis Fernando Rojas MD Primary Care Provider Encounter Details Date Type Department Care Team (Late st Contact Info) Description 12/12/2023 Telephone [facility] [address] [place] [address] Cleo Brantley CRNP [address] [place] [address] Allergies Active Allergy Reactions Criticality Noted Date Comments Salvador Inhibitors Other (Please comment) High 0 HyperKalemia documented as of this encounter (statuses as of 12/12/2023) Medications Medication Sig Dispensed Refills Start Date [...] 16 units subcutaneously every day. 30 mL 10/28/2023 Active Insulin Lispro (1 Unit Dial) [...] 1,000 mcgIndications:S/P gastric bypass 1000 mcg IM [id number] 10/15/2022 07/19/2025 Active vitamin b-12 (Cyanocobalamin) inj 1,000 mcgIndications:Morbid obesity with BMI of 40.0-44.9, adult (HCC),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 [id number] 10/17/2023 12/11/19 25 Active documented as of this encounter (statuses as of 12/12/2023) Active Problems Problem Noted Date Diagnosed Date [...] 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 10/15/2022 [facility]EARCH OTHER*[id number] 01/01/2022 S/P gastric bypass 01/01/2022 Marginal ulcer [...] as of this encounter (statuses as of 12/12/2023) Resolved Problems Problem Noted Date Diagnosed Date [...] 10/08/2022 Insulin long-term use 11/19/20182018 Overview: Duplicate joint terminal attack controller (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 insulin 11/19/2018 10/08/2022 Morbid [...] T-tube placement 04/16/2017 05/29/2017 [employer] Other*[id number] 04/13/2013 08/27/2016 Overview: Study Title: Genomic Markers for Patients with Cardiovascular Disease Project # [id number] Apprentice Funeral Director: Siena Laws MD [phone] Hypertensive heart disease 03/25/2013 1 07/29/2016 Neuropathy, [...] as of this encounter (statuses as of 12/12/2023) Immunizations Name Administration Dates Next Due COVID-19 mRNA, LNP-s, No Pre serve, 2-Dose Series (Moderna) 04/09/2021,09/23/2020,08/19/2020 COVID-19, LNP-s, No Preserve , Espinoza-sucrose, Ages 12+ (Pfizer) 01/08/2022 Hepatitis B Vaccine, Recombi nant, Adjuvanted, 20 mcg/mL (Heplisav-B) 09/05/2021,05/09/2021,04/04/2021,02/18 Hepatitis B, 20+ yrs 09/16/2018,04/14/2018,03/1104/11/2018 Pneumococcal Conjugate Vacci ne, 20-valent ([id number]) 12/02/2023(Deferred: - pt states she's already received) [...] encounter Miscellaneous Notes * Telephone Encounter - Yashira Pandya LPN - 12/12/2023 3:02 PM EDT Called [facility]-- Spoke to Hina. She is faxing over labs attn me. documented in this encounter Plan of Treatment Upcoming Encounters Date Type Department Care Team (Late st Contact Info) Description 12/30/2023 8:20 AM EDT Office Visit Podiatry [facility] [address] [address] Calli Avila DPM [address] [address] 12/30/2023 1:00 PM EDT Telemedicine Pharmacy, [place] [address] [place] [address] [facility] [address] [place] [address] 02/26/2024 7:40 AM EDT Office Visit Family Practice, [place] [address] [facility] [id number] Luis Fernando Rojas MD [address] [place] [facility] [address] 03/29/2024 11:00 AM EDT Office Visit Cardiology, [facility] [address] [place] [address] Ulises Stevenson DO [address] [place] [address] 04/27/2024 12:20 PM EDT Office Visit Nutrition & Weight Management, [facility] [address] [place] [address] Cleo Fonseca PA-C [address] [place] [address] Scheduled Procedures Name Priority Associated Diagnoses Date/Ti [...] this encounter Medical Devices Implanted Type Area Aprn Device Identifier Shelf Expiration Date Model / Serial / Lot Coil Vortex 35 Pltinm [id number] - [id number] Implanted:Qty: 1 on 11/27/2021 by Sterling Cates [place] [facility] [place] Upper Arm [employer] : NEURO INTR [id number] 08/15/2024 [id number] Coil Vortex 35 Pltinm [id number] - [id number] Implanted:Qty: 1 on 11/27/2021 by Sterling Cates MD [place] [facility] [place]: Upper Arm [employer] : NEURO INTR [id number] 08/15/2024 [id number] / / [id number] Coil Vortex 35 Pltinm [id number] - [id number] Implanted:Qty: 1 on 11/27/2021 by Sterling Cates MD [place] [facility] [place]: Upper Arm [employer] : NEURO INTR [id number] 08/15/2024 [id number] / / [id number] Coil Vortex 35 Pltinm [id number] - [id number] Implanted:Qty: 1 on 11/27/2021 by Sterling Cates MD [place] [facility] [place]: Upper Arm [employer] : NEURO INTR [id number] 05/16/2024 [id number] / / [id number] Azur 35 Detachable 5mm 11cm - [id number] Implanted:Qty: 1 on 03/19/2022 by Jose Devine MD [place] [facility] [place]: Wrist [employer] [id number] 10/18/2025 [id number] / / [id number] Azur 35 Detachable 5mm 11cm - [id number] Implanted:Qty: 1 on 03/19/2022 by Jose Devine MD [place] [facility] [place]: Wrist [employer] [id number] 06/19/2026 [id number] / / [id number] Mesh Flat Sheet 10x14 [id number] - [id number] Implanted:Qty: 1 on 12/11/2022 by Eros Dash MD [place] [facility] [place]/A: Abdomen CR BARD : DAVOL [id number] 06/17/2027 [id number] / / [id number] documented as of this encounter Advance Directives Documents on File Type Date Recorded Patient Medical Technician Assistant Expl anation POLST 11/13/2020 POLST PENNSYLVA VALERIA [...] Finley Spouse Health Care Agent Care Teams Property Master Relationship Specialty Start Date End Date Luis Fernando Rojas MD [address] [place] [address] PCP - General Family Medicine 09/23/16 documented as of this encounter
--- OUTSIDE RECORDS SUMMARY | 2024-01-09 10:03 | External Medical Summary | Summary of Care ---
Author Name Unknown Organization [facility] Address [address] [place] [address] Phone [phone] Care Team Providers Care Hydraulic Operator Name Role Phone Luis Fernando Rojas MD Primary Care Provider [phone] Reason for Visit * Reason Comments Acute SOB on exertion-- on ly when walking longer distances. X 2 wks Encounter Details Date Type Department Care Team (Latest Contact Info) Description 12/12/2023 12:20 PM EDT Office Visit Family [facility] [address] [facility] [place] [address] Cleo Brantley CRNP [address] [place] [address] OLSON (dyspnea on exertion)*; Diarrhea, unspecified type; Presence of cardiac pacemaker; SSS (sick sinus syndrome) ([facility]); PAT (paroxysmal atrial tachycardia) ([facility]); Hypothyroidism (acquired); Type 2 diabetes mellitus with hemoglobin A1c goal of less than 7.0% ([facility]); MINISTERIO on CPAP; HTN, goal below 140/90; Hypertensive 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 congestive heart failure and stage 5 chronic kidney disease on chronic dialysis ([facility]); Diabetic gastroparesis ([facility]); S/P gastric bypass; Morbid obesity with BMI of 40.0-44.9, adult ([facility]) Allergies Active Allergy Reactions Criticality Noted Date [...] directed. Replace every 14 days (supplied through [facility]) 7 Each 3 05/17/2021 Active CPAP every [...] 1,000 mcgIndications:S/P gastric bypass 1000 mcg IM [id number] 10/15/2022 07/19/2025 Active vitamin b-12 (Cyanocobalamin) inj 1,000 mcgIndications:Morbid obesity with BMI of 40.0-44.9, adult (HCC),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 [id number] 10/17/2023 12/11/19 25 Active documented as of [...] 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 10/15/2022 [facility]EARCH OTHER*[id number] 01/01/2022 S/P gastric bypass 01/01/2022 Marginal ulcer [...] Plan: [facility] dialysis since January, Dr. Magallanes. Renae-W-Briana from [...] 10/08/2022 Insulin long-term use 11/19/20182018 Overview: Duplicate [facility] (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 insulin 11/19/2018 10/08/2022 Morbid [...] T-tube placement 04/16/2017 05/29/2017 [employer] Other*[id number] 04/13/2013 08/27/2016 Overview: Study Title: Genomic Markers for Patients with Cardiovascular Disease Project # [id number] Manufacturing Manager: Siena Laws MD [phone] Hypertensive heart disease 03/25/2013 1 07/29/2016 Neuropathy, [...] yrs 09/16/2018,04/14/2018,03/1104/11/2018 Pneumococcal Conjugate Vacci ne, 20-valent ([id number]) 12/02/2023(Deferred: - pt states she's already received) [...] Sign Reading Time Taken Comments Blood Pressure 126/64 12/12/2023 12:31 PM EDT Pulse 90 12/12/2023 12:46 PM EDT Temperature 36.8 C (98.2 F) 12/12/2023 1 2:31 PM EDT Respiratory Rate - - Oxygen Saturation 92% 12/12/2023 12: 31 PM EDT Inhaled Oxygen Concentration - - Weight 104.7 kg (230 lb 14.4 oz) 2023 12:31 PM EDT Height - - Body Mass Index 40.26 12/02/2023 9:18 AM EDT documented in this encounter Functional Status [...] as of this encounter Progress Notes * Cleo Brantley CRNP - 12/12/2023 12:42 PM EDT Images from the original note were not included. History of Present Illness Candi Finley is a 62 year old female that presents for Acute (SOB on exertion-- only when walking longer distances. X 2 wks ) HPI Patient is here for worsening OLSON. Has noticed she gets more out of breath with bathing/showering, dressing over last 2 weeks but thinks it may have been there to a lesser extent in the weeks prior as well. She was her usual level of out of breath walking from parking lot into clinic and her heart rate when we first brought her back was 110. Decreased to 90bpm after resting int he exam room for abit. She does not feel short of breath at rest. She had dialysis this morning. Notes some ongoing issues with her fistula. She started ozempic 6 weeks ago and has had diarrhea with meals since increasing from 0.25mg to 0.5mg 2 weeks ago. [facility] [place] [facility]. Makes a little urine -- denies any burning with urination or pain. No fevers, chills, URI symptoms. No rashes. She has a pacemaker and is overdue for her regular cardiology follow up. Their last visit indicatedhigher pacer activity and noted they may consider echo if that would continue. She has no leg swelling. Denies chest pain, dizziness/lightheadedness. As noted above OLSON mostly with bathing/dressing and walking. Improves with rest. CPAP for MINISTERIO -- notes mask has been leaking. Has been seeing sleep med about this. DM -- follows with MTM for insulin management. Has [facility] for CGM. Current Outpatient Medications Medication Sig Dispense Refill Diclofenac Sodium 1 % External Gel (Voltaren) Apply topically to affected area 3 times a day as needed for Pain. Apply to affected area 100 g 2 Insulin Glargine Solostar 100 UNIT/ML Subcutaneous Solution Pen-injector (Basaglar KwikPen) Inject 16 units subcutaneously every day. 30 mL 4 Insulin Lispro (1 Unit Dial) 100 UNIT/ML Subcutaneous Solution Pen-injector (HumaLOG KwikPen) Inject 14 units with breakfast, 4 units with lunch and 16 units with supper + CF 1:25 over 150. Max dose of 45 units per day 30 mL 4 Semaglutide(0.25 or 0.5MG/DOS) 2 MG/3ML Solution Pen-injector (Ozempic) Inject 0.25 mg under the skin for 4 weeks, then increase to 0.5 mg weekly thereafter 3 mL 3 Atorvastatin Calcium 40 MG Oral Tablet (Lipitor) TAKE ONE TABLET BY MOUTH EVERY EVENING 90 Tablet 3 Gabapentin 300 MG Oral Capsule (Neurontin) Take 1 Capsule by mouth at bedtime. Follow up with your primary care provider for further management. 90 Capsule 3 Levothyroxine Sodium 100 MCG Oral Tablet (Levoxyl) TAKE 1 TABLET BY MOUTH DAILY AT LEAST 30 MINUTESPRIOR TO FIRST MEAL OF THE DAY OR OTHER MEDICATIONS 90 Tablet 3 amLODIPine Besylate 5 MG Oral Tablet (Norvasc) TAKE ONE TABLET BY MOUTH EVERY DAY IN THE MORNING (Patient taking differently: Take 1 Tablet by mouth at bedtime.) 90 Tablet 1 BD Pen Needle Mini U/F 31G X 5 MM (Insulin Pen Needle) Use 4 times daily with insulin 400 Each 3 Calcium Acetate (Phos Binder) 667 MG Oral Capsule (Phoslo) TAKE THREE CAPSULES BY MOUTH WITH EACH MEAL AND TWO CAPSULES WITH SNACKS 1300 Capsule 3 Calcium Citrate-Vitamin D 315-5 MG-MCG Oral Tablet Take 1 Tablet by mouth in the morning. 600 mg ofcalcium twice daily + 20 mcg of vitamin d twice daily. Omeprazole 20 MG Oral Capsule Delayed Release (PriLOSEC) Take 1 Capsule by mouth in the morning. 100 Capsule 1 Citalopram Hydrobromide 40 MG Oral Tablet (CeleXA) Take 1 Tablet by mouth in the morning. 90 Tablet3 Acetaminophen 325 MG Oral Tablet (Tylenol) Take 2 Tablets by mouth every 6 hours as needed. Biotin 1000 MCG Oral Tablet Take 1 Tablet by mouth in the morning and 1 Tablet before bedtime. Childrens Chewable Vitamins Oral Tablet Chewable Take 1 Tablet by mouth in the morning and 1 Tabletbefore bedtime. Nitroglycerin 0.4 MG Sublingual Tablet Sublingual (Nitrostat) Place under the tongue 1 Tablet as needed for Pain, Chest. May repeat 3 times. If chest pain continues, call 911. 25 Tablet 11 Vitamin D 25 MCG (1000 UT) Oral Tablet Take 5 Tablets by mouth every morning. ProRenal + D Oral Tablet Take by mouth 1 Tablet daily . Ketoconazole 2 % External Shampoo (Nizoral) Apply to scalp once weekly. Lather and leave on for 5 minutes before rinsing. Alternate with over the counter anti- dandruff shampoos on off days. 120 mL 5 CPAP every night at bedtime. 12 Loaded Commerce Jennifer 2 Sensor Use as directed. Replace every 14 days (supplied through [facility]) 7 Each 3 Aspirin 81 MG Oral Tablet Chewable Take 1 Tab by mouth at bedtime. with food. 90 Tab 3 Melatonin 10 MG Tablet Take 12 mg by mouth at bedtime. Abrysvo 120 MCG/0.5ML Intramuscular Solution Reconstituted (RSV Pre-Fusion F A&B Vac Rcmb) Inject IM as directed (Patient not taking: Reported on 12/01/2023) 1 Each 0 Current Facility-Administered Medications Medication Dose Route Frequency Provider Last Rate Last Admin vitamin b-12 (Cyanocobalamin) inj 1,000 mcg 1,000 mcg Intramuscular Q12 Weeks Cleo Fonseca PA-C vitamin b-12 (Cyanocobalamin) inj 1,000 mcg 1,000 mcg Intramuscular Q12 Weeks Luis Fernando Rojas MD 1,000 mcg at 01/02/23 1242 Physical Exam Vitals: 12/12/23 1231 12/12/23 1246 Temp: 36.8 C (98.2 F) Pulse: 110 90 SpO2: 92% BP: 126/64 Physical Exam Vitals reviewed. Constitutional: General: She is not in acute distress. HENT: Head: Normocephalic and atraumatic. Cardiovascular: Rate and Rhythm: Normal rate. Heart sounds: Normal heart sounds. Comments: Pacemaker Pulmonary: Effort: No respiratory distress. Breath sounds: Normal breath sounds. No wheezing, rhonchi or rales. Abdominal: General: There is no distension. Palpations: Abdomen is soft. Tenderness: There is no abdominal tenderness. Musculoskeletal: Right lower leg: No edema. Left lower leg: No edema. Skin: General: Skin is warm and dry. Capillary Refill: Capillary refill takes less than 2 seconds. Neurological: Mental Status: She is alert and oriented to person, place, and time. Psychiatric: Behavior: Behavior normal. Thought Content: Thought content normal. Assessment and Plan OLSON (dyspnea on exertion) Will obtain most recent labs from dialysis center for review Will reach out to cardiology about getting her in for sooner follow up Concern that diarrhea from ozempic may be contributing to her symptoms Advise follow up with weight management/pcp if no improvement at lower dose Aware that she should go to ER if she develops chest pain or OLSON worsens Diarrhea, unspecified type As above Presence of cardiac pacemaker SSS (sick sinus syndrome) ([facility]) PAT (paroxysmal atrial tachycardia) ([facility]) Hypothyroidism (acquired) Type 2 diabetes mellitus with hemoglobin A1c goal of less than 7.0% ([facility]) MINISTERIO on CPAP HTN, goal below 140/90 Hypertensive 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 congestive heart failure and stage 5 chronic kidney disease on chronic dialysis ([facility]) Diabetic gastroparesis ([facility]) S/P gastric bypass Morbid obesity with BMI of 40.0-44.9, adult ([facility]) Wrap-Up Follow-up: Return if symptoms worsen or fail to improve. | Check-out note: Labs soon Please schedule soonest available cardiology visit with Elva or Isai -- I am also going to message them Time: I spent a total of 30-39 minutes (exact time 35 mins) on the date of service in preparation, delivery, and documentation of the care provided to Candi Finley excluding any time spent in the performance of separately billed services. documented in this encounter Nursing Notes * Yashira Pandya LPN - 12/12/2023 12:28 PM EDT The patient has been properly identified by confirmation of name and date of . Chief Complaint Patient presents with Acute SOB on exertion-- only when walking longer distances. X 2 wks Pt had a fall last yr, and intensive hernia repair right after. Pt was in hospital and center care for both things. Feels like she has not been the same since. Very light duty for almost 2 months & she believes this is a stamina thing. Denies CP. documented in this encounter Plan of Treatment Upcoming Encounters Date Type Department Care Team (Late st Contact Info) Description 12/30/2023 8:20 AM EDT Office Visit Podiatry [facility] [address] [place] [address] Calli Avila DPM [address] [place] [address] 12/30/2023 1:00 PM EDT Telemedicine Pharmacy, [place] [address] [address] [facility] [address] [place] [address] 02/26/2024 7:40 AM EDT Office Visit Family [facility] [place] [address] [id number] Luis Fernando Rojas MD [address] [place] [address] 03/29/2024 11:00 AM EDT Office Visit Cardiology, [facility] [address] [place] [address] Ulises Stevenson DO [address] [place] [address] 04/27/2024 12:20 PM EDT Office Visit Nutrition & Weight Management, [facility] [address] [address] Cleo Fonseca PA-C [address] [place] [address] Scheduled Procedures Name Priority Associated Diagnoses Date/Ti [...] this encounter Medical Devices Implanted Type Area Successfactors Consultant Device Identifier Shelf Expiration Date Model / Serial / Lot Coil Vortex 35 Pltinm [id number] - [id number] Implanted:Qty: 1 on 11/27/2021 by Sterling Cates MD [place] [facility] [place]: Upper Arm [employer] : NEURO INTR [id number] 08/15/2024 [id number] / [id number] Coil Vortex 35 Pltinm [id number] - [id number] Implanted:Qty: 1 on 11/27/2021 by Sterling Cates MD at [place] [facility] [place] Right: Upper Arm [employer] : NEURO INTR [id number] 08/15/2024 [id number] / [id number] Coil Vortex 35 Pltinm [id number] - [id number] Implanted:Qty: 1 on 11/27/2021 by Sterling Cates MD at [place] [facility] [place] Right: Upper Arm [employer] : NEURO INTR [id number] 08/15/2024 [id number] Coil Vortex 35 Pltinm [id number] - [id number] Implanted:Qty: 1 on 11/27/2021 by Sterling Cates MD at [place] [facility] [place] Right: Upper Arm [employer] : NEURO INTR [id number] 05/16/2024 [id number] Azur 35 Detachable 5mm 11cm - [id number] Implanted:Qty: 1 on 03/19/2022 by Jose Devine MD at [place] [facility] [place] Right: Wrist [employer] [id number] 10/18/2025 [id number] / / [id number] Azur 35 Detachable 5mm 11cm - [id number] Implanted:Qty: 1 on 03/19/2022 by Jose Devine MD at [place] [facility] [place] Right: Wrist Utel [id number] 06/19/2026 [id number] / / [id number] Mesh Flat Sheet 10x14 [id number] - [id number] Implanted:Qty: 1 on 12/11/2022 by Eros Dash MD at OR [facility] [place] N/A: Abdomen CR BARD : DAVOL [id number] 06/17/2027 [id number] / / [id number] documented as of this encounter Visit Diagnoses Diagnosis OLSON (dyspnea on exertion)- Primary Other dyspnea and respiratory abnormality Diarrhea, unspecified type Presence of cardiac pacemaker Cardiac pacemaker in situ SSS (sick sinus syndrome) ([facility]) Sinoatrial node dysfunction PAT (paroxysmal atrial tachycardia) ([facility]) Paroxysmal supraventricular tachycardia Hypothyroidism (acquired) Unspecified hypothyroidism Type 2 diabetes mellitus with hemoglobin A1c goal of less than 7.0% ([facility]) MINISTERIO on CPAP Obstructive sleep apnea (adult) (pediatric) HTN, goal below 140/90 Unspecified essential hypertension Hypertensive 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 congestive heart failure and stage 5 chronic kidney disease on chronic dialysis ([facility]) Diabetic gastroparesis ([facility]) Type II or unspecified type diabetes mellitus with neurological manifestations, not stated as uncontrolled S/P gastric bypass Bariatric surgery status Morbid obesity with BMI of 40.0-44.9, adult ([facility]) Morbid obesity documented in this encounter Advance Directives Documents on File Type Date Recorded Patient Inspector Machine Cut Glass Expl anation HENRY 11/13/2020 HENRY [facility] ORDERS FOR LIFE-SUSTAINING TREATMENT [...] Agents on File Name Relationship Healthcare Agent [facility] p Communication Zhen Finley Spouse Health Care Agent Care Teams Hydraulic Operator Relationship Specialty Start Date End Date Luis Fernando Rojas MD [address] [place] [address] PCP - General Family Medicine 09/23/16 documented as of this encounter
--- OUTSIDE RECORDS SUMMARY | 2024-01-09 10:04 | External Medical Summary ---
Author Name Unknown Address Unknown Organization K01:[facility] [place] [address] [place] [address] Laboratory Report Ordering Provider Test Date Status TOMASA YOO 12/02/2023 10:14:21 Final On admission All Dialysis louis gregorio Observation Date Value Abnormality Reference (Units ) Status Potassium, Whole Blood 12/02/2023 10:14:21 5.2 Above high normal 3.5-5.1 (mmol/L) Final Performing Location [facility] [place] [address] [place] [address]
--- OUTSIDE RECORDS SUMMARY | 2024-01-09 10:04 | External Medical Summary | Summary of Care ---
Author Name Unknown Organization [facility] Address [address] [place] [address] Phone [phone] Care Team Providers Care Video Game Repair Technician Name Role Phone Luis Fernando Rojas MD Primary Care Provider [phone] Reason for Visit * Reason Onset Date Comments TRIAGE 11/28/2023 Encounter Details Date Type Department Care Team (Late st Contact Info) Description 11/28/2023 Telephone Vascular Surg [facility] [address], [place] [id number] Services, [facility] [address] [place] [address] TRIAGE Allergies Active Allergy Reactions Criticality Noted Date Comments Salvador Inhibitors Other (Please comment) High 0 HyperKalemia documented as of this encounter (statuses as of 11/28/2023) Medications Medication Sig Dispensed Refills Start Date End Date Status Melatonin 10 MG Tablet Take 12 mg by mouth at bedtime. 0 Active Aspirin 81 MG Oral Tablet ChewableIndication [...] Active CPAP every night at bedtime. 12 0 Active Ketoconazole 2 % External Shampoo (Nizoral)Indicatio ns:Seborrheic dermatitis Apply to scalp once weekly. Lather and leave on for 5 minutes before rinsing. Alternate with over the counter anti-dandruff shampoos on off days. 120 mL 5 09/20/2021 Active ProRenal + D Oral Tablet Take by mouth 1 Tablet daily . 0 02/28/2022 Active Vitamin D 25 MCG (1000 UT) Oral Tablet Take 5 Tablets by mouth every morning. 0 Active Childrens Chewable Vitamins Oral Tablet Chewable Take 1 Tablet by mouth in the morning and 1 Tablet before bedtime. 0 Active Biotin 1000 MCG Oral Tablet Take 1 Tablet by mouth in the morning and 1 Tablet before bedtime. 0 Active Nitroglycerin 0.4 MG Sublingual Tablet Sublingual (Nitrostat) Place under the tongue 1 Tablet as needed for Pain, Chest. May repeat 3 times. If chest pain continues, call 911. 25 Tablet 11 04/26/2022 Active Acetaminophen 325 MG Oral Tablet (Tylenol) Take 2 Tablets by mouth every 6 hours as needed. 0 Active hydrALAZINE HCl 100 MG Oral TabletIndications: [...] 20 mcg of vitamin d twice daily. 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 Magallanes. Renae-W-Briana from [...] as of this encounter (statuses as of 11/28/2023) Resolved Problems Problem Noted Date Diagnosed Date [...] 10/08/2022 Insulin long-term use 11/19/20182018 Overview: Duplicate prison (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 insulin 11/19/2018 10/08/2022 Morbid [...] T-tube placement 04/16/2017 05/29/2017 [employer] Other*[id number] 04/13/2013 08/27/2016 Overview: Study Title: [employer] Markers for Patients with Cardiovascular Disease Project # [id number] Sales Producer: Siena Laws MD [phone] Hypertensive heart disease 03/25/2013 1 07/29/2016 Neuropathy, [...] as of this encounter (statuses as of 11/28/2023) Immunizations Name Administration Dates Next Due COVID-19 mRNA, LNP-s, No Pre serve, 2-Dose Series (Moderna) 04/09/2021,09/23/2020,08/19/2020 COVID-19, LNP-s, No Preserve , Espinoza-sucrose, Ages 12+ (Pfizer) 01/08/2022 Hepatitis B Vaccine, Recombi nant, Adjuvanted, 20 mcg/mL (Heplisav-B) 09/05/2021,05/09/2021,04/04/2021,02/18 Hepatitis B, 20+ yrs 09/16/2018,04/14/2018,03/1104/11/2018 Pneumococcal Polysaccharide PPV23 (Pneumovax) 08/30/2014,09/18/2013,07/28/2007 RSV Vac., [...] encounter Miscellaneous Notes * Telephone Encounter - Candi Torres LPN - 11/28/2023 3:41 PM EDT Spoke with patient and she states that they are having access trouble and they are not getting the clearance that they need. She states she is able to get full treatment and she needs a fistulagram. She gets dialysis at [facility] on / She would need a / Last intervention was on 05/13/[address] Matt Operation: 1. Right upper extremity diagnostic fistulagram with peripheral venous angioplasty Findings: Patent right upper extremity arteriovenous anastomosis. Stenotic right upper extremity cephalic vein(s). She is scheduled with Dr. Cates on 12/18/23 for an office visit. They are to be faxing over notes but nothing has been scanned into the chart yet. I called [facility] at [phone] and spoke with Hina and she states that she needs a fistulagram. She states that the information has been faxed over already. She then put Jennifer on the phone and she states it was faxed to [phone]. I let her know that I am not sure where that fax machine is but if she can refax to [phone]. She states that she does need a fistulagram, her clearances are down and her flow rate is in the 300's. Secretaries, Please cancel office visit on 12/18/23 and get patient set up for fistulagram. Patient will need a / . Candi Torres LPN 11/28/2023 3:52 PM * Telephone Encounter - Gabriela Pierce OSA - 11/28/2023 3:08 PM EDT Please call patient back to schedule surgery to have her fistulagram cleaned out she is having problems with it documented in this encounter Plan of Treatment Upcoming Encounters Date Type Department Care Team (Late st Contact Info) Description 12/02/2023 9:00 AM EDT Office Visit Podiatry [facility] [place] [address] [place] [address] Calli Avila DPM [address] [place] [address] 12/03/2023 7:30 AM EDT Office Visit [facility] [place] [address] [place] [phone] Veena Rainey CRNP [address] [place] [address] 12/18/2023 11:45 AM EDT Office Visit Vascular Surg [facility] [address] [place] [address] Sterling Cates MD [address] [place] [address] 12/30/2023 1:00 PM EDT Telemedicine Pharmacy, [place] [address] [place] [address] [facility] [address] [place] [address] 02/13/2024 10:40 AM EDT Telemedicine Nutrition & Weight Management, [facility] [address] [facility] [place] [address] Katya Delaney RDN [address] [place] [address] 04/27/2024 12:20 PM EDT Office Visit Nutrition & Weight Management, [facility] [address] [place] [address] Cleo Fonseca PA-C [address] [place] [address] Scheduled Procedures Name Priority Associated Diagnoses Date/Ti [...] this encounter Medical Devices Implanted Type Area [employer] Device Identifier Shelf Expiration Date Model / Serial / Lot Coil Vortex 35 Pltinm [id number] - [id number] Implanted:Qty: 1 on 11/27/2021 by Sterling Cates MD at OR [facility] [place] Right: Upper Arm [employer] : [employer] INTR [id number] 08/15/2024 [id number] 1 / / [id number] Coil Vortex 35 Pltinm [id number] - [id number] Implanted:Qty: 1 on 11/27/2021 by Sterling Cates MD at OR [facility] [place] Right: Upper Arm [employer] : [employer]TR [id number] 08/15/2024 [id number] / / [id number] Coil Vortex 35 Pltinm [id number] - [id number] Implanted:Qty: 1 on 11/27/2021 by Sterling Cates MD at OR [facility] [place] Right: Upper Arm [employer] : [employer] [id number] 08/15/2024 [id number] / / [id number] Coil Vortex 35 Pltinm [id number] - [id number] Implanted:Qty: 1 on 11/27/2021 by Sterling Cates MD at OR [facility] [place] Right: Upper Arm [employer] : [employer]TR [id number] 05/16/2024 [id number] / / [id number] Azur 35 Detachable 5mm 11cm - [id number] Implanted:Qty: 1 on 03/19/2022 by Jose Devine MD at OR [facility] [place] Right: Wrist [employer] [id number] 10/18/2025 [id number] / / [id number] Azur 35 Detachable 5mm 11cm - [id number] Implanted:Qty: 1 on 03/19/2022 by Jose Devine MD at OR [facility] [place] Right: Wrist [employer] [id number] 06/19/2026 [id number] / / [id number] Mesh Flat Sheet 10x14 [id number] - [id number] Implanted:Qty: 1 on 12/11/2022 by Eros Dash MD at OR [facility] [place] N/A: Abdomen CR BARD : DAVOL [id number] 06/17/2027 [id number] / / [id number] documented as of this encounter Advance Directives Documents on File Type Date Recorded Patient Pump Attendant Expl anation POLST 11/13/2020 POLST [place] VALERIA ORDERS FOR LIFE-SUSTAINING TREATMENT Latest Code Status on File Code Status Date Activated Date Inactivated Comments Full Code 12/11/2022 4:37 PM 12/19/2022 3:22 PM Question Answer Comments Discussion of Advance Directives occurred with: Not Discussed due to patient's condition Code Status History Code Status Date Activated Date Inactivated Comments Full Code 12/11/2022 11:09 AM 12/11/2022 4:36 PM Question Answer Comments Discussion of Advance Directives occurred with: Not Discussed due to patient's condition Full Code 01/28/2022 4:47 PM 01/31/2022 1:26 AM Question Answer Comments Discussion of Advance Directives occurred with: Not Discussed Does the patient have a Living Will? No Does the patient have Health Care Power of Language Assistant? No Full Code 01/28/2022 11:14 AM 01/28/2022 4:47 PM Full Code 05/22/2021 12:38 PM 05/22/2021 5:48 PM This order reflects the patients wishes and were consensually agreed upon. Question Answer Comments Discussion of Advance Directives occurred with: Not Discussed Does the patient have a Living Will? No Does the patient have Health Care Power of Language Assistant? No Healthcare Agents on File Name Relationship Healthcare Agent Relationshi p Communication Zhen Finley Spouse Health Care Agent Care Teams Video Game Repair Technician Relationship Specialty Start Date End Date Luis Fernando Rojas MD [address] [place] [address] PCP - General Family Medicine 09/23/16 documented as of this encounter
--- OUTSIDE RECORDS SUMMARY | 2024-01-09 10:04 | External Medical Summary | Summary of Care ---
Author Name Unknown Organization [facility] Address [address] [place] [address] Phone [phone] Care Team Providers Care Sliver Machine Operator Name Role Phone Luis Fernando Rojas MD Primary Care Provider [phone] Reason for Visit * Auth/Cert Specialty Diagnoses / Procedures Referred By Contac t Referred To Contact Diagnoses ESRD (end stage renal disease) on dialysis (HCC) ESRD (end stage renal disease) on dialysis (HCC) [N18.6, Z99.2] Procedures INTRO CATH DIALYSIS CIRCUIT W/TRANSCATH PLACEMENT IV STENT AV FISTULOGRAM STENT & PERIPHERAL ANGIOPLASTY Micheal Urena MD [address] [place] [address] Or [facility] [address] [place] [address] Referral ID Status Reason Start Date Expiration Date Visits Re quested Visits Authorized [id number] Encounter Details Date Type Department Care Team (Latest Contact Info) Description 12/02/2023 9:04 AM EDT - 12/02/2023 1:10 PM EDT Hospital Encounter OR [facility], OPERATING ROOM GM, MARI MACIEL [address] [place] [address] Micheal Urena MD [address] [place] [address] Discharge Disposition: Home - Self Care Allergies Active Allergy Reactions Criticality Noted Date Comments Salvador Inhibitors Other (Please comment) High 0 HyperKalemia documented as of this encounter (statuses as of 12/03/2023) Medications Medication Sig Dispensed Refills Start Date End Date Status Melatonin 10 MG Tablet Take 12 mg by mouth at bedtime. 0 Active Aspirin 81 MG Oral Tablet ChewableIndicati ons:Type 2 diabetes mellitus 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 dialysis, with long-term current use of insulin (HCC) Take 1 Tab by mouth at bedtime. with food. 90 Tab 3 1 Active FreeStyle Jennifer 2 Sensor Use as directed. Replace every 14 days (supplied through DME) 7 Each 3 1 Active CPAP every night at bedtime. 12 0 Active Ketoconazole 2 % External Shampoo (Nizoral)Indicat ions:Seborrheic dermatitis Apply to scalp once weekly. Lather and leave on for 5 minutes before rinsing. Alternate with over the counter anti-dandruff shampoos on off days. 120 mL 5 2 Active ProRenal + D Oral Tablet Take by mouth 1 Tablet daily . 0 2 Active Vitamin D 25 MCG (1000 UT) [...] pain continues, call 911. 25 Tablet 11 2 Active Additional Information Patient not taking.Informant: Patient, Reported on 12/01/2023 Acetaminophen 325 MG Oral Tablet (Tylenol) Take 2 Tablets by mouth every 6 hours as needed. 0 Active hydrALAZINE HCl 100 MG Oral TabletIndication s:HTN, goal below 140/90 TAKE 1 TABLET BY MOUTH EVERY DAY IN THE MORNING AND 1 TABLET AT NOON, AND 1 TABLET AT BEDTIME 270 Tablet 2 3 12/11/19 24 Active Carvedilol 12.5 MG Oral Tablet (Coreg)Indicatio ns:HTN, goal below 140/90 TAKE ONE TABLET BY MOUTH EVERY DAY IN THE MORNING AND TAKE ONE TABLET BY MOUTH EVERY DAY BEFORE BEDTIME 180 Tablet 4 3 12/11/19 24 Active Citalopram Hydrobromide 40 MG Oral Tablet (CeleXA)Indicati ons:Major depressive disorder, single episode, moderate (HCC) Take 1 Tablet by mouth in the morning. 90 Tablet 3 3 Active Calcium Citrate-Vitamin D 315-5 MG-MCG Oral Tablet Take 1 Tablet by mouth in the morning. 600 mg of calcium twice daily + 20 mcg of vitamin d twice daily. 0 Active BD Pen Needle Mini U/F 31G X 5 MM (Insulin Pen Needle)Indicatio ns:Type 2 diabetes mellitus with hemoglobin A1c goal of less than 7.0% (HCC) Use 4 times daily with insulin 400 Each 3 3 Active Omeprazole 20 MG Oral Capsule Delayed Release (PriLOSEC)Indica tions:Gastroesop hageal reflux disease without esophagitis Take 1 Capsule by mouth in the morning. 100 Capsule 1 3 Active Calcium Acetate (Phos Binder) 667 MG Oral Capsule (Phoslo) TAKE THREE CAPSULES BY MOUTH WITH EACH MEAL AND TWO CAPSULES WITH SNACKS 1300 Capsule 3 3 Active amLODIPine Besylate 5 MG Oral Tablet (Norvasc) TAKE ONE TABLET BY MOUTH EVERY DAY IN THE MORNING 90 Tablet 1 3 05/14/20 24 Active Additional Information Patient taking differently: 5 mg Oral HS, Reported on 06/24/2023 Levothyroxine Sodium 100 MCG Oral Tablet (Levoxyl)Indicat ions:Hypothyroid ism, unspecified type TAKE 1 TABLET BY MOUTH DAILY AT LEAST 30 MINUTES PRIOR TO FIRST MEAL OF THE DAY OR OTHER MEDICATIONS 90 Tablet 3 4 Active Gabapentin 300 MG Oral Capsule (Neurontin) Take 1 Capsule by mouth at bedtime. Follow up with your primary care provider for further management. 90 Capsule 3 4 Active Atorvastatin Calcium 40 MG Oral Tablet (Lipitor)Indicat ions:Dyslipidemi a, goal LDL below 100 TAKE ONE TABLET BY MOUTH EVERY EVENING 90 Tablet 3 4 09/09/19 25 Active Semaglutide(0.25 or 0.5MG/DOS) 2 MG/3ML Solution Pen-injector (Ozempic)Indicat ions:Type 2 diabetes mellitus with hemoglobin A1c goal of less than 7.0% ([facility]) Inject 0.25 mg under the skin for 4 weeks, then increase to 0.5 mg weekly thereafter 3 mL 3 4 Active Insulin Glargine Solostar 100 UNIT/ML Subcutaneous Solution Pen-injector (Basaglar KwikPen)Indicati ons:Type 2 diabetes mellitus with hemoglobin A1c goal of less than 7.0% ([facility]) Inject 16 units subcutaneously every day. 30 mL 4 4 Active Insulin Lispro (1 Unit Dial) 100 UNIT/ML Subcutaneous Solution Pen-injector (HumaLOG KwikPen)Indicati ons:Type 2 diabetes mellitus with hemoglobin A1c goal of less than 7.0% ([facility]) Inject 14 units with breakfast, 4 units with lunch and 16 units with supper + CF 1:25 over 150. Max dose of 45 units per day 30 mL 4 4 Active Diclofenac Sodium 1 % External Gel (Voltaren) Apply topically to affected area 3 times a day as needed for Pain. Apply to affected area 100 g 2 4 Active Amoxicillin 500 MG Oral Capsule (Amoxil) Take 4 Capsules by mouth once for 1 dose. 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 11/19/2018 10/08/2022 Morbid [...] T-tube placement 04/16/2017 05/29/2017 [employer] Other*[id number] 04/13/2013 08/27/2016 Overview: Study Title: Genomic Markers for Patients with Cardiovascular Disease Project # [id number] Building Performance Specialist: Siena Laws MD [phone] Hypertensive heart disease 03/25/2013 1 07/29/2016 Neuropathy, [...] as of this encounter (statuses as of 12/03/2023) Immunizations Name Administration Dates Next Due COVID-19 mRNA, LNP-s, No Pre serve, 2-Dose Series (Moderna) 04/09/2021,09/23/2020,08/19/2020 COVID-19, LNP-s, No Preserve , Espinoza-sucrose, Ages 12+ (Pfizer) 01/08/2022 Hepatitis B Vaccine, Recombi nant, Adjuvanted, 20 mcg/mL (Heplisav-B) 09/05/2021,05/09/2021,04/04/2021,02/18 Hepatitis B, 20+ yrs 09/16/2018,04/14/2018,03/1104/11/2018 Pneumococcal Conjugate Vacci ne, 20-valent ([id number]) 12/02/2023(Deferred: - pt states she's already received) [...] Sign Reading Time Taken Comments Blood Pressure 104/56 12/02/2023 12:45 PM EDT Pulse 84 12/02/2023 12:45 PM EDT Temperature 36.4 C (97.5 F) 12/02/2023 1 2:45 PM EDT Respiratory Rate 13 12/02/2023 12:4 5 PM EDT Oxygen Saturation 95% 12/02/2023 12: 45 PM EDT Inhaled Oxygen Concentration - - Weight 106.2 kg (234 lb 3.2 oz) 12/02/2023 9:18 AM EDT Height 161.3 cm (5' 3.5") 12/02/2023 9:18 AM EDT Body Mass Index 40.84 12/02/2023 9:18 AM EDT documented in this [...] No 12/11/2022 documented as of this encounter Discharge Summaries * Josse Bradford MD - 12/02/2023 11:31 AM EDT [facility] [address] [facility] [id number] OUTPATIENT SURGERY DISCHARGE SUMMARY NOTE Name: Candi Finley Location: [facility] Date: 12/02/2023 Time: 11:31 AM Date and Time of Procedure: 12/02/2023 at 11:31 AM Surgery Date: 12/02/2023 Procedure(s): AV FISTULOGRAM STENT & PERIPHERAL ANGIOPLASTY (Right) Surgeon: Micheal Urena MD Discharge Diagnosis: End Stage Renal Disease After examination of this patient, I have determined she is ready for discharge to home when the patient meets criteria. Discharge instructions were given to the patient. Josse Bradford MD Vascular Surgery Fellow documented in this encounter Discharge Instructions * Discharge Instr - AVS* Josse Bradford MD - 12/02/2023 11:31 AM EDT Patient instructions: If you go home with bandages on your incision, please remove bandages at next dialysis session You may shower, wash and dry the incision. Do not immerse the incision in water - this includes swimming, hot tubs or bath tubs. You may drive when you no longer are taking narcotic pain medications and you feel you can quickly respond to situations that will not place others in jeopardy. Monitor the incision for signs and symptoms of infection, including redness, drainage or increased pain. If you develop a fever, contact [phone] to schedule an evaluation. Your fistula is okay to use for dialysis at your next session Follow-up in Vascular Surgery Clinic as needed. documented in this encounter H&P Notes * Estrella Arredondo, - 12/02/2023 9:41 AM EDT HISTORY AND PHYSICAL EXAMINATION - Vascular Surgery [facility] [address] Name: Candi Finley Location: OR [facility]/[place] Date: 12/02/2023 Time: 9:41 AM PRESENTING PROBLEM: ESRD problem with dialysis access HISTORY OF PRESENT ILLNESS: Candi Finley is a 62 year old, female that presents to pre-op today for fistulagram Phone encounter (11/28/2023) having access trouble and they are not getting the clearance that they need. She states she is ableto get full treatment and she needs a fistulagram. She gets dialysis at [facility] // Relevant surgical history: 08/16/2021 Right wrist radiocephalic arteriovenous fistula creation for hemodialysis --Dr. Cates 11/27/2021 1. Right upper extremity diagnostic fistulagram with peripheral venous angioplasty 2. Endovascular coiling of competing outflow branches of right upper extremity fistula -- Dr. Cates 03/19/2022 1. Right upper extremity diagnostic fistulagram with peripheral venous angioplasty (Angioplasty of AV anastomosis with 5 mm and angioplasty of cephalic vein with 7 mm [employer] [place] balloons) 2. Coil embolization of of competing cephalic vein branch (two 5 mm x 11 cm Terumo Azur coils) -- Dr. Devine 05/30/2022 Right upper extremity diagnostic fistulagram with peripheral venous angioplasty --Dr. Torrez 10/10/2022 Right upper extremity diagnostic fistulagram with peripheral venous angioplasty (Angioplasty of AV anastomosis with 5 mm BD Lutonix drug eluting balloon and angioplasty of cephalic vein with 6 mm BD Lutonix drug eluting balloon and 7 mm BD Ultra verse plain angioplasty balloon) -- Dr. Devine 02/25/2023 Right upper extremity diagnostic fistulagram with peripheral venous angioplasty (Cephalic vein angioplasty with 5 mm [employer] IN.PACT drug eluting balloon and 6 mm [employer] [place] balloon) -- Dr. Devine 05/13/2023 1. Right upper extremity diagnostic fistulagram with peripheral venous angioplasty 2. Cephalic vein angioplasty with 6mm balloon -- [facility] PROBLEM LIST: Patient Active Problem List Diagnosis Code Dyslipidemia, goal LDL below 100 E78.5 -MALIG SKIN MELANOMA - MIS L 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 Z85.820 Type 2 diabetes mellitus with hemoglobin A1c goal of less than 7.0% ([facility]) E11.9 Vitamin D deficiency E55.9 HTN, goal below 140/90 I10 Major depressive disorder, recurrent episode, moderate with seasonal pattern ([facility]) F33.1 Rosacea L71.9 Hypothyroidism (acquired) E03.9 Mitral annular calcification I34.81 Type 2 diabetes mellitus with diabetic polyneuropathy, with long-term current use of insulin ([facility]) E11.42, Z79.4 Chronic diastolic heart failure ([facility]) I50.32 History of endometrial cancer Z85.42 Hyperparathyroidism, secondary renal ([facility]) N25.81 MINISTERIO on CPAP G47.33 Stable proliferative diabetic retinopathy of both eyes associated with type 2 diabetes mellitus ([facility]) E11.3553 SALVADOR inhibitor intolerance Z78.9 SSS (sick sinus syndrome) ([facility]) I49.5 PAT (paroxysmal atrial tachycardia) ([facility]) I47.19 Gastroesophageal reflux disease without esophagitis K21.9 Hypertensive 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 congestive heart failure and stage 5 chronic kidney disease on chronic dialysis ([facility]) I13.2, I50.32, Z99.2, N18.6 Morbid obesity with BMI of 40.0-44.9, adult ([facility]) E66.01, Z68.41 Postsurgical malabsorption, not elsewhere classified K91.2 Diabetic gastroparesis ([facility]) E11.43, K31.84 Type 2 diabetes mellitus 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 dialysis, with long-term current use of insulin ([facility]) E11.22, N18.6, Z99.2, Z79.4 Presence of cardiac pacemaker Z95.0 ESRD (end stage renal disease) on dialysis ([facility]) N18.6, Z99.2 Marginal ulcer K28.9 Aortic atherosclerosis ([facility]) I70.0 [employer] OTHER*[id number] S/P gastric bypass Z98.84 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 ([facility]) E11.3533 Other specified glaucoma H40.89 Pulmonary hypertension, unspecified ([facility]) I27.20 Recurrent ventral incisional hernia K43.2 PAST MEDICAL HISTORY: Past Medical History: Diagnosis Date Body mass index 40 and over, adult CHF NYHA class I ([facility]) 07/2009 Chronic marginal ulcer Deficiency of other vitamins Vit D Depressive disorder, not elsewhere classified Dialysis patient ([facility]) Diverticulosis of colon (without mention of hemorrhage) 12/02/2013 sigmoid & descending colon DM type 2 causing eye disease ([facility]) DM type 2 causing neurological disease ([facility]) neuropathy since 2006 DM type 2 causing renal disease ([facility]) DM type 2, goal A1c below [address] Monte Dyslipidemia, goal LDL below 100 primarily high triglycerides Endometrial cancer ([facility]) 1993 ESRD (end stage renal disease) on dialysis ([facility]) 03/14/2021 HTN, goal below 130/80 Kidney disease, chronic, stage III (GFR 30-59 ml/min) ([facility]) 10/02/2011 More specified code listed on PL Historical Malignant melanoma of right upper extremity ([facility]) 05/07/2021 Malignant neoplasm of corpus uteri ([facility]) 1993 Melanoma ([facility]) L calf R arm Motion sickness Neuropathy, diabetic ([facility]) 02/18/2013 Osteoarthritis of hip mild to mod bilat hip pain Other specified anemias low iron Other specified glaucoma denied by patient PONV (postoperative nausea and vomiting) Renal failure hemodialysis SBO (small bowel obstruction) ([facility]) 04/25/2017 Sleep apnea 07/2009 CPAP 11 cm H2O. C-flex 2 PAST SURGICAL HISTORY: Past Surgical History: Procedure Laterality Date ABD WALL HERNIA REPAIR, LAP, REDUCIBLE N/A 01/28/2022 LAPAROSCOPIC VENTRAL/UMBILICAL HERNIA REPAIR, REDUCIBLE W OR W/O MESH performed by Honorio Ashford MD at OR [facility] AV ACCESS, DIRECT ANASTOMOSIS Right 08/16/2021 ARTERIOVENOUS ANASTOMOSIS OPEN DIRECT ANY SITE performed by Sterling Cates MD at OR [facility] BREAST BIOPSY Left 12/26/2008 Usual Ductal Hyperplasia BREAST BIOPSY Left 09/20/2010 Benign BX LYMPH NODE DEEP AXIL Right 05/22/2021 BIOPSY LYMPH NODE DEEP AXILLARY OPEN performed by Diamond Rivero MD at OR [facility] COLONOSCOPY, DIAGNOSTIC (RECTUM) 12/02/2013 hyperplastic polyps, diverticulosis, repeat 5 yrs/done @ [facility] COLONOSCOPY, DIAGNOSTIC (RECTUM) 12/11/2017 adenomatous polyps, diverticulosis, repeat 5 yrs/[facility] COLONOSCOPY, DIAGNOSTIC (RECTUM) N/A 02/27/2023 diverticulosis/hemorrhoids/biopsies show adenomatous polyps/recall 5 years/Colonoscopy/CT CORONARY ANGIOGRAPHY W/LEFT HEART CATH 04/13/2013 CORONARY ANGIOGRAPHY W/LEFT HEART CATH performed by Ulises Reed MD at CARDIAC LABS [facility] DIALYIS CIRCUIT VASCULAR EMBOLIZATION OCCLUSION ENDOVASC IMAGING Right 11/27/2021 EMBOLIZATION DIALYSIS CIRCUIT performed by Sterling Cates MD at OR [facility] EGD, FLEXIBLE, DIAGNOSTIC 05/03/2014 mild-mod inflammation/done @ [facility] EGD, FLEXIBLE, DIAGNOSTIC N/A 04/16/2017 ESOPHAGOGASTRODUODENOSCOPY (EGD), FLEXIBLE, TRANSORAL, DIAGNOSTIC performed by Sukumar Polanco MDat OR [facility] EGD, FLEXIBLE, DIAGNOSTIC 05/05/2020 mild-mod inflammation on bx / ESOPHAGOGASTRODUODENOSCOPY (EGD), FLEXIBLE, TRANSORAL, DIAGNOSTIC performed by Adin Borja MD at ENDOSCOPY [facility] EGD, FLEXIBLE, DIAGNOSTIC N/A 04/25/2021 ESOPHAGOGASTRODUODENOSCOPY (EGD), FLEXIBLE, TRANSORAL, DIAGNOSTIC performed by Honorio Almendarez MD atENDOSCOPY [facility] EGD, FLEXIBLE, DIAGNOSTIC 06/13/2021 gastrojejunal anastomosis characterized by ulceration, repeat 2 mo / [facility] IDENTIFY SENTINEL NODE, RADIOACTIVE TRACER Right 05/22/2021 INJECTION PROCEDURE FOR IDENTIFICATION SENTINEL NODE performed by Diamond Rivero MD at OR [facility] INFORMATION Left 2019 Pacemaker placement. INTRO CATH DIALYSIS CIRCUIT DX ANGIOGRAPHY FLUORO S&I Right 10/10/2022 AV FISTULOGRAM DIAGNOSTIC performed by Jose Devine MD at OR [facility] INTRO CATH DIALYSIS CIRCUIT W/TRANSCATH PLACEMENT IV STENT Right 03/19/2022 AV FISTULOGRAM STENT & PERIPHERAL ANGIOPLASTY performed by Jose Devine MD at OR [facility] INTRO CATH DIALYSIS CIRCUIT W/TRANSCATH PLACEMENT IV STENT Right 05/13/2023 AV FISTULOGRAM STENT & PERIPHERAL ANGIOPLASTY performed by Williams Matt MD at OR [facility] INTRO CATH DIALYSIS CIRCUIT W/TRANSLUM BALLOON ANGIOPLASTY Right 11/27/2021 AV FISTULOGRAM & PERIPHERAL ANGIOPLASTY performed by Sterling Cates MD at OR [facility] INTRO CATH DIALYSIS CIRCUIT W/TRANSLUM BALLOON ANGIOPLASTY Right 05/30/2022 AV FISTULOGRAM & PERIPHERAL ANGIOPLASTY performed by Beto Torrez MD at OR [facility] INTRO CATH DIALYSIS CIRCUIT W/TRANSLUM BALLOON ANGIOPLASTY Right 02/25/2023 AV FISTULOGRAM & PERIPHERAL ANGIOPLASTY performed by Jose Devine MD at OR [facility] IR DUPLEX ULTRASOUND (FOR INTERVENTIONAL RADIOLOGY USE ONLY) 03/02/2021 IR VENOUS ACCESS NON-MEDIPORT 07/18/2022 LAPAROSCOPE PROCEDURE, LIVER N/A 04/16/2017 UNLISTED LAPAROSCOPIC PROCEDURE LIVER performed by Sukumar Polanco MD at OR [facility] LAPAROSCOPE PROCEDURE, LIVER N/A 01/28/2022 UNLISTED LAPAROSCOPIC PROCEDURE LIVER performed by Honorio Ashford MD at OR [facility] LAPAROSCOPIC GASTRIC BYPASS/JODY-EN-Y N/A 04/16/2017 LAPAROSCOPIC GASTRIC RESTRICTIVE BYPASS JODY EN Y performed by Sukumar Polanco MD at OR [facility] LAPAROSCOPY; CHOLECYSTECTOMY N/A 04/16/2017 LAPAROSCOPIC CHOLECYSTECTOMY performed by Sukumar Polanco MD at OR [facility] MISCELLANEOUS ORDER ([facility] ONLY) 05/2009 breast biopsy/ [...] performed by Sukumar Polanco MD at OR [facility] REPLACE,COMP,FLACO CENT ACC DEV N/A 03/22/2021 REPLACEMENT COMPLETE TUNNELED CENTRAL CATHETER NO PORT performed by Luis Fernando Hassan DO at OR [facility] REVISE STOMACH-BOWEL FUSION N/A 01/28/2022 REVISION GASTROJEJUNAL ANASTOMOSIS performed by Honorio Ashford MD at OR [facility] RMV MALG LSN TRK/ARM/LG >4.0CM Right 05/22/2021 EXCISION MALIGNANT TRUNK ARM LEG OVER 4CM performed by Diamond Rivero MD at OR [facility] RPR AA HERNIA 1ST 3-10 CM REDUCIBLE N/A 12/11/2022 INCISIONAL/VENTRAL/SPIGELIAN HERNIA REPAIR INITIAL 3-10 CM REDUCIBLE performed by Eros Dash MD at OR [facility] TOTAL ABD HYSTERECTOMY W/WO REMOVAL OF TUBE(S) Bilateral age 33 TOTAL HYSTERECTOMY TAHBSO (endometrial ca) TRANSECTION VAGUS NRV,TRUNCAL N/A 01/28/2022 LAPAROSCOPIC TRANSECTION VAGUS NERVES TRUNCAL performed by Honorio Ashford MD at OR [facility] UPPER GI ENDOSCOPY FAMILY HISTORY: Family History Problem Relation Age of Onset Hypertension Mother Ovarian cancer Mother Breast Cancer Mother 68 Cancer Father melanoma Heart Disorder Father Stroke Father Heart Disorder Sister CAD with PCI in 50's Glaucoma Sister Ovarian cancer Aunt (Paternal) 30 Colon cancer Grandmother (Maternal) 45 Diabetes Grandfather (Maternal) Diabetes Grandmother (Paternal) Diabetes Grandfather (Paternal) Heart disease Grandfather (Paternal) Breast Cancer Aunt (Paternal) Breast Cancer Cousin (Paternal) SOCIAL HISTORY: Social History Tobacco Use Smoking status: Never Smokeless tobacco: Never Vaping Use Vaping Use: Never used Substance Use Topics Alcohol use: No Drug use: No CURRENT HOSPITAL MEDICATIONS: Note that completed medications (per the MAR) continue to display for 24 hours. Ordered medicationsto be given in the future also display. Current Facility-Administered Medications Medication Dose Route Frequency Provider 1/2 NSS infusion Intravenous Continuous Kelsey Vail CRNP ALLERGIES: Salvador inhibitors ROS: All other systems negative except for those in the history of present illness (HPI). PHYSICAL EXAMINATION: BP: 138 mmHg/59 mmHg (12/02/23921) Pulse: 82 (12/02/23921) Temp: 36.28 C (12/02/23921) Temp Summary: Temp Min: 36.3 C (97.3 F) Max: 36.3 C (97.3 F) SpO2: 96 % (12/02/23921) O2 flow rate: Supplemental O2 Delivery: Room Air, None (12/02/23921) GENERAL: Normal grooming habits and no acute distress. NECK: No masses. RESPIRATORY: respiratory effort normal. CARDIOVASCULAR: regular rate and rhythm. GASTROINTESTINAL: no tenderness and soft. SKIN: no ulcers and no rash. PSYCHIATRIC: orientation to time, place and person normal. EYES: conjunctivae normal. NEUROLOGIC: Motor function intact and Sensory exam intact VASCULAR: LUE AVF with palpable thrill, palpable radial pulses bilaterally LABS: Labs reviewed as indicated below: Recent Results (from the past 12 hour(s)) GLUCOSE METER, POINT OF CARE Collection Time: 12/02/23 9:30 AM Result Value Ref Range Glucose Meter 200 (H) 70 - 120 mg/dL IMAGING: No imaging results in the last 72 hours IMPRESSION and PLAN: -to OR today for fistulagram Estrella Arredondo, DO Vascular Surgery PGY-1 documented in this encounter Nursing Notes * Saida Nova RN - 12/02/2023 12:26 PM EDT Late note EKG/BMP not needed per Anes. Following repeat whole blood potassium. * Chica Tamez RN - 12/02/2023 11:50 AM EDT Dual Licensed Skin Assessment completed by self and Li Chakraborty. The patient is/has a N/A Skin Breakdown (includes non blanchable erythema): Yes - Surgical/Procedural changes only. * Saida Nova RN - 12/02/2023 9:32 AM EDT Dual Licensed Skin Assessment completed by self and Jossy LOPEZ. The patient is/has a N/A Skin Breakdown (includes non blanchable erythema): No * Yenifer Garza RN - 12/01/2023 4:29 PM EDT NO ANESTHESIA EVAL REQUESTED PER CASE DOCUMENTATION. Pre-operative chart review completed. Presurgery instructions sent to patient via [employer] message-pt aware PREOP PATIENT INFORMATION AND EDUCATION: MEDICATION INSTRUCTIONS: The day of surgery/procedure, you may TAKE the following medications with a sip of water up to 3 hours prior to your arrival time: Please follow the pre-operative instructions provided by your vascular surgeon. If you have any questions regarding these instructions please contact your surgeon's office at [phone]. Per Vascular Surgery: Hold Lispro the morning of surgery (coverage with meals) Ok to take long acting insulin May take all other medications (per vascular) except Ozempic-see below STOP taking the following medications the noted number of days prior to surgery/procedure unless otherwise specified by your surgeon: You are prescribed Ozempic, a medication classified as a GLP-1 Agonist. This medication may be associated with delayed gastric emptying (delayed emptying of your stomach content into your intestine).Due to the delay in emptying your stomach you may experience symptoms such as abdominal discomfort/bloating, nausea and/or vomiting. These symptoms can increase your risks of potential complications associated with anesthesia. You will have the opportunity to discuss your symptoms the day of surgery when you will meet your anesthesia team and a plan of care is made. Please follow these recommendations based on whether you are experiencing symptoms or not to reducethe risk of potential complications associated with anesthesia: -You are taking a DAILY-dosed GLP-1 agonist, you will need to HOLD your dose the morning of your procedure AND follow a CLEAR LIQUID diet for 24 hours before your procedure. -You are taking a WEEKLY-dosed GLP-1 agonist HOLD your dose a minimum of 3 days prior to your procedure AND follow a CLEAR LIQUID diet for 24 hours before your procedure. INSTRUCTIONS FOR CLEAR LIQUID DIET 24 HOURS BEFORE YOUR PROCEDURE: -The day before your procedure you may eat a lite breakfast (e.g. toast, cereal), it is recommendedto eat your breakfast before 9:00 AM -The day before your procedure after eating breakfast, you MUST follow a clear liquid diet. A clearliquid diet includes water, soda, clear juices (without pulp), black coffee or tea (without milk/cream), jello (without anything added to it) and broth (without anything added to it). -NPO after MN (per Vascular Surgery) 24 hours prior to surgery/procedure DO NOT consume any alcohol. DO NOT use medical marijuana. DO NOT smoke or use tobacco products of any kind after midnight prior to surgery. *Using any of these products may increase your risks of procedural complications. IF IT IS LESS THAN RECOMMENDED STOPPAGE TIME PLEASE STOP AT TIME OF NOTIFICATION. FASTING RECOMMENDATIONS: To reduce risk, it is important for all elective surgery patients to follow the specific fasting guidelines listed below. If you have received more stringent guidelines, please follow the MOST RESTRICTIVE guidelines that you have been provided. INSTRUCTIONS FOR CLEAR LIQUID DIET 24 HOURS BEFORE YOUR PROCEDURE: -The day before your procedure you may eat a lite breakfast (e.g. toast, cereal), it is recommendedto eat your breakfast before 9:00 AM -The day before your procedure after eating breakfast, you MUST follow a clear liquid diet. A clearliquid diet includes water, soda, clear juices (without pulp), black coffee or tea (without milk/cream), jello (without anything added to it) and broth (without anything added to it). -NPO after MN (per Vascular Surgery) Any drinks given by your surgical service take as directed. THE DAY BEFORE YOUR SURGERY: -Drink plenty of fluid the day before your surgery. Contact your surgeon's office if you develop any of the following within 2 weeks of surgery: A cold Infection Fever Shingles Chicken pox or exposure to chicken pox Open areas such as scrapes, cuts, sapp or other skin conditions Rashes GENERAL INSTRUCTIONS FOR PREPARING FOR SURGERY: BATHING INSTRUCTIONS: Bathe the evening prior to and the morning of surgery/procedure. Cleanse your body using ONLY anti-bacterial soap (eg, Dial, Safeguard) or any specific soap/cleansers and instructions provided by your surgeon (eg, Chlorhexidine). -You should brush your teeth the morning of surgery. Do NOT apply any lotions, powders, sprays, creams, oils, make-up, or deodorants after bathing. No hairspray, or nail nepalese on fingers or toes. Day of surgery/procedure do not use tampons. If you wear contacts wear your eyeglasses if available otherwise bring your contact supplies with you to remove them prior to your surgery/procedure. If you wear glasses or dentures, please bring cases in which you can store them during your surgery. Please remove all piercings and jewelry and leave them at home. Wear comfortable and loose clothing. -Please leave all valuables at home. -If you use a CPAP and are staying overnight, please bring your mask and tubing with you to the hospital. -If you use an assistive mobility device (walker, cane, etc), please label it with your name and bring to hospital. -An escort marine engine driver is required if you are being discharged the same day of the surgery. You should have a responsible adult over the age of 18 [address] you home. This person should be present with youin the hospital at the time of discharge and for the first 24 hours after the surgery to support your needs. If you are taking a taxi home, you must have your responsible libertarian accompany you in the taxi ride home at the time of discharge. OR times subject to change. Please check voicemail messages the day/evening before your surgery forany updates. PRE-OP: You will be taken to the pre-op area where your vital signs (blood pressure, pulse and temperature)will be taken. Any preparations that need to be done will be done there. When it is time for your surgery, you will be taken to the operating room. PARENTS OF PEDIATRIC PATIENTS WILL BE ALLOWED TO STAY WITH THEIR CHILDREN UNTIL THEY ARE ESCORTED TO THE OPERATING ROOM OUTPATIENT SURGERY PATIENTS: After your surgery you will be taken to the Same Day Surgery Unit when you are awake and will go home from there. You will get instructions about your home care before you leave. Arrange to have someone drive you home from the hospital. You may not drive for 24 hours after anesthesia. You must havean adult stay with you at home for 24 hours after your operation. This is very important. If you are not able to comply with these guidelines, your Short Stay surgery cannot be done. ADMISSION PATIENTS: After your stay in the recovery area, you will be taken to your room. Your family may visit you in your room based on current visitation policy. If a next day discharge is expected, it is important to make arrangements for a marine engine driver to take you home. Please be aware our visitation policies are subject to change Professionals, attendants, caregivers or family members are allowable visitors for patients with intellectual, developmental or cognitive disabilities, communication barriers or behavioral concerns. Because patients' and families' needs vary, they will be taken into account when applying visitation restrictions. [facility]: Contact # [phone] Directions to Surgical Suite in from the Mari Entrance The Surgical Waiting Room can be found in the Lobby of [facility]. Enter through Main Lobby Entrance and the Waiting Room is directly in front of you. Proceed to check in and give them your name. Directions to Surgical Suite from the East Entrance Enter the East entrance and follow the hallway to the J elevator. Take the J elevator up to Level 1. Continue down the long hallway to the main Mari Lobby. The Surgical Waiting Room will be on your Right. Proceed to check in and give them your Name. Directions to Surgical Suite from the Parking Garage Enter the [facility] lobby and proceed down the mcdonnell to the left. At the end of the mcdonnell, turn right. Continue down the long hallway to the main [facility] Lobby. The Surgical Waiting Room will be on your Right. Proceed to check in and give them your Name. THANK YOU FOR CHOOSING [facility]! Patient identified by: name/birthdate Person taught: Patient Optime case procedure confirmed with patient/parent/guardian - no consent signed. Laterality confirmed as Right Surgery date at time of Pre-Surgery Center Encounter: 12/02/23 What procedure is patient having? Right arm fistulagram In an emergency, is patient willing to accept blood products or blood transfusion? yes Do you need to place a blood bank order? No Anesthesia consent pool notified? N/A Anesthesia evaluation requested per case documentation? Yes Preop Evaluation Requested? No PATIENT EDUCATION SCREENING Person taught: Patient Motivation Level: Asks Questions Language Barrier: No Physical Barrier: N/A METHOD: Lecture-telephone interview Patient Preferred Learning Methods: Lecture-Telephone interview Health History interview completed, questions answered, and the following patient instructions provided via telephone interview: Preoperative bathing instructions General preoperative instructions Medication instructions NPO instructions OUTCOME: State / Describe / Explain and Verbalizes understanding of education TT to Kelsey [place] stating "Patient: Candi Finley. . Surgery tomorrow at [facility] (Right arm fistulagram). Per your TE on 11/28/23 it stated "Hold Lispro the morning of surgery (coverage with meals) Ok to take long acting insulin". I am assuming patient can take the rest of her medicationsexcept ozempic, please advise. Thank you. 4:36 PM" TT from Kelsey Vail stating "Yes 4:40 PM" TT sent to and stating "Patient: Candi Finley. . Surgery tomorrow at [facility] 12/02/23 (Right arm fistulagram under MAC- sedation). Patients last dose of Ozempic was today and she has not started her 24 hours clear liquid diet yet. Is it okay to proceed? Thank you". 5:10 PM 5 days left / Read TT from stating "Yes Light MAC anesthesia 5:11 PM" documented in this encounter OR Notes * OR Surgeon - Micheal Urena MD - 12/02/2023 10:58 AM EDT [facility] [address] OPERATIVE REPORT Name: Candi Finley Date: 12/02/2023 Time: 10:58 AM Location: OR [facility] Service: Vascular Surgery Date of Operation: 12/02/2023 Pre-op Diagnosis: End-stage renal disease on hemodialysis with poor clearances on dialysis Post-op Diagnosis: Same Surgeon: Micheal Urena MD Assistants: Josse Bradford MD and Estrella Arredondo DO Anesthesia: Monitored local anesthesia with sedation Operation: Right arm fistulagram with forearm cephalic vein angioplasty Findings: The right wrist radiocephalic AV fistula was patent with 2 areas of cephalic vein stenosis on either side of the needle access sites, which certainly could have been the problem causing thepoor clearances. There was no central stenosis. The cephalic vein stenoses were treated with angioplasty with a nice result. OK to keep using fistula for hemodialysis. Specimens: None Drains: None Estimated Blood Loss: 10 ml IV fluids: 350 ml. Urine Output: None. Patient Condition: stable Complications: none Indications and History: The patient is a 62 year old female with ESRD on HD who presents today for a right arm fistulagram to evaluate poor clearances. Description of Operation: The patient was identified in the pre-operative holding area and the procedure was confirmed with the patient. The patient was taken to the operating room and placed supine. After adequate intravenous sedation was given, the entire right upper extremity was prepped and draped in routine sterile fashion. A surgical timeout was performed to confirm the patient's identity and the intended procedure. Local anesthetic was used over the right wrist radiocephalic arteriovenous fistula. Percutaneous access was obtained to the fistula near the anastomosis using a micropuncture set directed centrally. Through the 4-[place] Citizen micropuncture sheath, a complete right upper extremity fistulagram was performed including compression views of the anastomosis and runoff views of the central venous circulation.Findings were as noted above. After reviewing the films, the decision was made to proceed with balloon angioplasty of the 2 areas of forearm cephalic vein stenosis. A 5-[place] Citizen sheath was placed and heparin was given. The areas of stenosis were crossed successfullywith a catheter and wire, then a Bentson wire was placed. Over the wire the 2 areas of stenosis were treated with balloon angioplasty using sequential inflations of a 6 mm x 100 mm [place] balloon. There was a nice result with no residual stenosis. The fistula had a stronger thrill now. Satisfied with the results, the sheath was removed and hemostasis was obtained with a 4-0 monocryl suture. A sterile dressing was applied. The patient tolerated the procedure well. Attestation: I was present for the entire procedure Micheal Urena MD Section of Vascular [place] [address] [phone] documented in this encounter Plan of Treatment Upcoming Encounters Date Type Department Care Team (Late st Contact Info) Description 12/03/2023 7:30 AM EDT Office Visit [facility] [address] [id number] Veena Rainey CRNP [address] [place] [address] 12/30/2023 1:00 PM EDT Telemedicine Pharmacy, [place] [address] [facility], [place] [address] [facility] [address] [facility], [place] [address] 02/13/2024 10:40 AM EDT Telemedicine Nutrition & Weight Management, [facility] [address] [facility] [place] [address] Katya Delaney RDN [address] [place] [address] 04/27/2024 12:20 PM EDT Office Visit Nutrition & Weight Management, [facility] [address] [facility] [place] [address] Cleo Fonseca PA-C [address] [facility] [place] [address] Pending Results Name Type Priority Associated Diagnoses Date /Time VASC PROCEDURE IN VASCULAR ANGIO SUITE Medical Imaging Routine 12/02/2023 9:28 AM EDT Scheduled Orders Name Type Priority Associated Diagnoses Orde r Schedule VASC PROCEDURE IN VASCULAR ANGIO SUITE Medical Imaging Routine One Time for 1 Occurrences starting 12/02/2023 until 12/02/2023 Scheduled Procedures Name Priority Associated Diagnoses Date/Ti [...] this encounter Medical Devices Implanted Type Area Solar Energy Sales Specialist Device Identifier Shelf Expiration Date Model / Serial / Lot Coil Vortex 35 Pltinm [id number] - [id number] Implanted:Qty: 1 on 11/27/2021 by Sterling Cates MD at [facility] Right: Upper Arm [employer] : NEURO INTR [id number] 08/15/2024 [id number] 1 / / [id number] Coil Vortex 35 Pltinm [id number] - [id number] Implanted:Qty: 1 on 11/27/2021 by Sterling Cates MD at OR [facility] Right: Upper Arm [employer] : NEURO INTR [id number] 08/15/2024 [id number] 1 / / [id number] Coil Vortex 35 Pltinm [id number] - [id number] Implanted:Qty: 1 on 11/27/2021 by Sterling Cates MD at OR [facility] Right: Upper Arm [employer] : NEURO INTR [id number] 08/15/2024 [id number] 1 / / [id number] Coil Vortex 35 Pltinm [id number] - [id number] Implanted:Qty: 1 on 11/27/2021 by Sterling Cates MD at OR [facility] Right: Upper Arm [employer] : NEURO INTR [id number] 05/16/2024 [id number] 1 / / [id number] Azur 35 Detachable 5mm 11cm - [id number] Implanted:Qty: 1 on 03/19/2022 by Jose Devine MD at OR [facility] Right: Wrist [employer] [id number] 10/18/2025 [id number] / / [id number] Azur 35 Detachable 5mm 11cm - [id number] Implanted:Qty: 1 on 03/19/2022 by Jose Devine MD at OR [facility] Right: Wrist [employer] [id number] 06/19/2026 [id number] / / [id number] Mesh Flat Sheet 10x14 [id number] - [id number] Implanted:Qty: 1 on 12/11/2022 by Eros Dash MD at OR [facility] N/A: Abdomen CR BARD : DAVOL [id number] 06/17/2027 [id number] / / [id number] documented as of this encounter Procedures Procedure Name Priority Date/Time Associated Diagnosis Comments GLUCOSE METER, POINT OF CARE BHARGAVI 12/02/2023 11:40 AM EDT POTASSIUM, WHOLE BLOOD STAT 12/02/2023 10:14 AM EDT POTASSIUM, WHOLE BLOOD STAT 12/02/2023 9:57 AM EDT GLUCOSE METER, POINT OF CARE BHARGAVI 12/02/2023 9:30 AM EDT documented in this encounter Results * (ABNORMAL) GLUCOSE METER, POINT OF CARE (12/02/2023 11:40 AM EDT) Glucose Meter 180(H) 70 - 120 mg/dL 12/02/2023 11:48 AM EDT [facility] Blood Whole blood specimen / Unknown 12/02/2023 11:40 AM EDT 12/02/2023 11:48 AM EDT Micheal Urena MD LAB POINT OF CARE TE ST DOCKED DEVICE UNSOLICITED RESULTS [facility] [address] [place] [address] * (ABNORMAL) POTASSIUM, WHOLE BLOOD (12/02/2023 10:14 AM EDT) Potassium, Whole Blood 5.2(H) 3.5 - 5.1 mmol/L 12/02/2023 10:24 AM EDT LABORATORY [facility] Blood Venous blood specimen / Unknown Venipuncture / Unknown 12/02/2023 10:14 AM EDT 12/02/2023 10:21 AM EDT Micheal Urena MD LAB BLOOD ORDERABLES LABORATORY [facility] [address] [place] [address] * (ABNORMAL) POTASSIUM, WHOLE BLOOD (12/02/2023 9:57 AM EDT) Potassium, Whole Blood 7.0(HH) 3.5 - 5.1 mmol/L 12/02/2023 10:10 AM EDT LABORATORY [facility] Blood Venous blood specimen / Unknown Venipuncture / Unknown 12/02/2023 9:57 AM EDT 12/02/2023 10:05 AM EDT Kelsey SINGER LAB BLOOD ORDERABLE S Performing Organization Address City/[facility]/ZIP Co de Phone Number LABORATORY [facility] [address] [place] [address] * (ABNORMAL) GLUCOSE METER, POINT OF CARE (12/02/2023 9:30 AM EDT) [facility] Signature Glucose Meter 200(H) 70 - 120 mg/dL 12/02/2023 9:32 AM EDT [facility] Blood Whole blood specimen / Unknown 12/02/2023 9:30 AM EDT 12/02/2023 9:32 AM EDT Micheal Urena MD LAB POINT OF CARE TE ST DOCKED DEVICE UNSOLICITED RESULTS Performing Organization Address City/[facility] Co de Phone Number [facility] [address] [place] [address] documented in this encounter Visit Diagnoses Diagnosis ESRD (end stage renal disease) on dialysis (HCC)- Primary End stage renal disease Electrolyte abnormality Electrolyte and fluid disorders not elsewhere classified End stage renal disease on dialysis (HCC) End stage renal disease documented in this encounter Administered Medications Inactive Administered Medications - up to 3 most recent administrations Medication Order MAR Action Action Date Dose Rate Site 1/2 NSS infusion Intravenous, at 25 mL/hr, CONTINUOUS, Starting on Fri12/02/23 at 1000, Until Fri12/02/23 at 1711, Pre-Op Continue from Pre-Op 12/02/2023 10:36 AM EDT 25 mL/hr New Bag 12/02/2023 10:29 AM EDT 25 mL/hr Acetaminophen (Tylenol) tab 975 mg 975 mg, Oral, ONCE PRN Pain, Mild, Pain, Moderate, Starting on Fri12/02/23 at 1159, Until Fri12/02/23 at 1711, For 1 dose, Administer only postop in PACU, PACU fentaNYL (PF) inj 25 mcg 25 mcg, IV Push, Q5 MIN PRN Pain, Moderate, Pain, Severe, Starting on Fri12/02/23 at 1159, Until Fri12/02/23 at 1711, For 2 doses, Administer only postop in PACU When given IV Push its recommended that the dose be given over 3 to 5 minutes., PACU Given 12/02/2023 12:10 PM EDT 25 mcg oxygen GAS Inhalation, OXYGEN, First dose on Fri12/02/23 at 1600, Until Discontinued, Device/Managed by: Low Flow Device, Goal SPO2 (%): Other, Lower-limit SPO2 (%): 88, Upper-limit SPO2 (%): 92, Starting Device: Nasal Cannula, Initial Flow Rate (LPM): 6 LPM for NC; 10 LPM for NRB mask, Lowest Support: Nasal Cannula: Flow 0-6 LPM. Titrate up/down by 1 LPM., Higher Support: Non-Rebreather (NRB) Mask: Minimum of 10 LPM. Titrate to maintain bag inflation., Titration Interval: Q2 minutes and as needed., Notify Provider: Other, Notify Provider [other]: If SpO2 less than 88%, notify provider immediately, If patient is on Room Air in the PACU and SpO2 is greater than 88% but less than 92% place patient on Nasal Cannula If patient is on Room Air in the PACU and SpO2 is less than 88% place patient on NRB Mask documented in this encounter Active and Recently Administered Medications Times are shown in EDT. Scheduled Medication Order 11/30/2023 12/01/2023 12/02/2023 oxygen GAS Inhalation, OXYGEN, First dose on Fri12/02/23 at 1600, Until Discontinued, Device/Managed by: Low Flow Device, Goal SPO2 (%): Other, Lower-limit SPO2 (%): 88, Upper-limit SPO2 (%): 92, Starting Device: Nasal Cannula, Initial Flow Rate (LPM): 6 LPM for NC; 10 LPM for NRB mask, Lowest Support: Nasal Cannula: Flow 0-6 LPM. Titrate up/down by 1 LPM., Higher Support: Non-Rebreather (NRB) Mask: Minimum of 10 LPM. Titrate to maintain bag inflation., Titration Interval: Q2 minutes and as needed., Notify Provider: Other, Notify Provider [other]: If SpO2 less than 88%, notify provider immediately, If patient is on Room Air in the PACU and SpO2 is greater than 88% but less than 92% place patient on Nasal Cannula If patient is on Room Air in the PACU and SpO2 is less than 88% place patient on NRB Mask Continuous Medication Order 11/30/2023 12/01/2023 12/02/2023 1/2 NSS infusion Intravenous, at 25 mL/hr, CONTINUOUS, Starting on Fri12/02/23 at 1000, Until Fri12/02/23 at 1711, Pre-Op 1029 (New Bag - Prov ider: Saida Nova RN)1036 (Continue from Pre-Op - Provider: LADI Abdalla)1129 (Anes Intra-Op Fluid - Provider: LADI Abdalla) PRN Medication Order 11/30/2023 12/01/2023 12/02/2023 Acetaminophen (Tylenol) tab 975 mg 975 mg, Oral, ONCE PRN Pain, Mild, Pain, Moderate, Starting on Fri12/02/23 at 1159, Until Fri12/02/23 at 1711, For 1 dose, Administer only postop in PACU, PACU bupivacaine HCl 30 mL, lidocaine 1 % 30 mL inj (CANCELED) ONCE PRN INTRA PROCEDURE, Starting on Fri12/02/23 at 1124, Until Fri12/02/23 at 1134, Intra-Op 1124 (Given - Provid er: Micheal Urena MD) fentaNYL (PF) inj 25 mcg 25 mcg, IV Push, Q5 MIN PRN Pain, Moderate, Pain, Severe, Starting on Fri12/02/23 at 1159, Until Fri12/02/23 at 1711, For 2 doses, Administer only postop in PACU When given IV Push its recommended that the dose be given over 3 to 5 minutes., PACU 1210 (Given - Provid er: Oneyda Calabrese RN) hEParin 5,000 Units in NSS 500 mL infusion (CANCELED) ONCE PRN INTRA PROCEDURE, Starting on Fri12/02/23 at 1052, Until Fri12/02/23 at 1134, Intra-Op 1052 (Given - Provid er: Micheal Urena MD - Comment: PRN intraop) Iodixanol (Visipaque 320) inj (CANCELED) ONCE PRN INTRA PROCEDURE, Starting on Fri12/02/23 at 1124, Until Fri12/02/23 at 1134, Intra-Op 1124 (Given - Provid er: Micheal Urena MD) documented in this encounter Advance Directives Documents on File Type Date Recorded 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 No Full Code 01/28/2022 11:14 AM 01/28/2022 4:47 PM Full Code 05/22/2021 12:38 PM 05/22/2021 5:48 PM This order reflects the patients wishes and were consensually agreed upon. Question Answer Comments Discussion of Advance Directives occurred with: Not Discussed Does the patient have a Living Will? No Does the patient have Health Care Power of Mechanical Cad Drafter? No Healthcare Agents on File Name Relationship Healthcare Agent Relationshi p Communication Zhen Finley Spouse Health Care Agent Care Teams Sliver Machine Operator Relationship Specialty Start Date End Date Luis Fernando Rojas MD [address] [place] [id number] PCP - General Family Medicine 09/23/16 documented as of this encounter
--- OUTSIDE RECORDS SUMMARY | 2024-01-09 10:04 | External Medical Summary ---
Author Name Unknown Address Unknown Organization : Laboratory Report Ordering Provider Test Date Status TOMASA YOO 12/02/2023 11:40:52 Final Observation Date Value Abnormality Reference (Units ) Status Glucose Point of Care 12/02/2023 11:40:52 180 Above high normal 70-120 (mg/dL) Final Performing Location
--- OUTSIDE RECORDS SUMMARY | 2024-01-09 10:04 | External Medical Summary | Summary of Care ---
Author Name Unknown Organization [facility] Address [address] [place] [address] Phone [phone] Care Team Providers Care Custodial Foreman Name Role Phone Luis Fernando Rojas MD Primary Care Provider Reason for Visit * Reason Onset Date Comments TRIAGE 11/28/2023 Encounter Details Date Type Department Care Team (Late st Contact Info) Description 11/28/2023 Telephone Vascular Surg [facility] [address], [place] [id number] Services, [facility] [address] [place] [address] TRIAGE Allergies Active Allergy Reactions Criticality Noted [...] 1,000 mcgIndications:S/P gastric bypass 1000 mcg IM [id number] 10/15/2022 07/19/2025 Active vitamin b-12 (Cyanocobalamin) inj 1,000 mcgIndications:Morbid obesity with BMI of 40.0-44.9, adult (HCC),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 [id number] 10/17/2023 12/11/19 25 Active documented as of [...] 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 10/15/2022 [facility] OTHER*[id number] 01/01/2022 S/P gastric bypass 01/01/2022 Marginal ulcer [...] 10/08/2022 Insulin long-term use 11/19/20182018 Overview: Duplicate correction (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 insulin 11/19/2018 10/08/2022 Morbid [...] T-tube placement 04/16/2017 05/29/2017 [employer] Other*[id number] 04/13/2013 08/27/2016 Overview: Study Title: Genomic Markers for Patients with Cardiovascular Disease Project # [id number] Veterinary Poultry Inspector: Siena Laws MD [phone] Hypertensive heart disease 03/25/2013 1 07/29/2016 Neuropathy, [...] encounter Miscellaneous Notes * Telephone Encounter - Kelsey Vail CRNP - 11/28/2023 4:34 PM EDT NPO after MN Hold Lispro the morning of surgery (coverage with meals) Ok to take long acting insulin * Telephone Encounter - Matteo Salcido OSA - 11/28/2023 4:13 PM EDT Called patient and scheduled her for a fistulagram on Friday 12/[address] Urena [facility] appointment 12/17 canceled. * Telephone Encounter - Candi Torres LPN - 11/28/2023 3:41 PM EDT Spoke with patient and she states that they are having access trouble and they are not getting the clearance that they need. She states she is able to get full treatment and she needs a fistulagram. She gets dialysis at [facility] on She would need a / Last intervention [...] scanned into the chart yet. I called [facility] at [phone] and spoke with Hina and she states that she needs a fistulagram. She states that the information has been faxed over already. She then put Jennifer on the phone and she states it was faxed to [phone]. I let her know that I am not sure where that fax machine is but if she can refax to [phone]. She states that she does need a fistulagram, her clearances are down and her flow rate is in the 300's. Secretaries, Please cancel office visit on 12/18/23 and get patient set up for fistulagram. Patient will need a / Th. Candi Torres LPN 11/28/2023 3:52 PM * Telephone Encounter - Gabriela Pierce OSA - 11/28/2023 3:08 PM EDT Please call patient back to schedule surgery to have her fistulagram cleaned out she is having problems with it documented in this encounter Plan of Treatment Upcoming Encounters Date Type Department Care Team (Late st Contact Info) Description 12/02/2023 Hospital Encounter OR [facility], OPERATING ROOM GM, MARI BANERJEEMARCUS [address] [place] [address] Micheal Urena MD [address] [place] [address] 12/02/2023 9:00 AM EDT Office Visit Podiatry [facility] [address] [facility] [place] [address] Calli Avila DPM [address] [facility] [place] [address] 12/03/2023 7:30 AM EDT Office Visit Sleep Disorders Ctr [facility] [address] [facility] [place] [phone] Veena Rainey CRNP [facility] [address] 12/30/2023 1:00 PM EDT Telemedicine Pharmacy, [address] [address] [facility] [address] [place] [address] 02/13/2024 10:40 AM EDT Telemedicine Nutrition & Weight Management, [facility] 132 [facility] [place] [address] Katya Delaney RDN [facility] [place] [address] 04/27/2024 12:20 PM EDT Office Visit Nutrition & Weight Management, [facility] [address] [place] [address] Cleo Fonseca PA-C [address] [place] [address] Scheduled Procedures Name Priority Associated Diagnoses Date/Ti me AV FISTULOGRAM STENT & PERIP HERAL ANGIOPLASTY ESRD (end stage renal disease) on dialysis (HCC) COLONOSCOPY FLEXIBLE PROXIMA L DIAGNOSTIC Recall History [...] this encounter Medical Devices Implanted Type Area Soft Drink Powder Mixer Device Identifier Shelf Expiration Date Model / Serial / Lot Coil Vortex 35 Pltinm [id number] - [id number] Implanted:Qty: 1 on 11/27/2021 by Sterling Cates MD at OR [facility] Right: Upper Arm [employer] : NEURO INTR [id number] 08/15/2024 [id number] / / [id number] Coil Vortex 35 Pltinm [id number] - [id number] Implanted:Qty: 1 on 11/27/2021 by Sterling Cates MD at OR [facility] Right: Upper Arm [employer] : NEURO INTR [id number] 08/15/2024 [id number] / / [id number] Coil Vortex 35 Pltinm [id number] - [id number] Implanted:Qty: 1 on 11/27/2021 by Sterling Cates MD at OR [facility] Right: Upper Arm [employer] : NEURO INTR [id number] 08/15/2024 [id number] / / [id number] Coil Vortex 35 Pltinm [id number] - [id number] Implanted:Qty: 1 on 11/27/2021 by Sterling Cates MD at OR [facility] Right: Upper Arm [employer] : NEURO INTR [id number] 05/16/2024 [id number] / / [id number] Azur 35 Detachable 5mm 11cm - [id number] Implanted:Qty: 1 on 03/19/2022 by Jose Devine MD at OR [facility] Right: Wrist [employer] [id number] 10/18/2025 [id number] / / [id number] Azur 35 Detachable 5mm 11cm - [id number] Implanted:Qty: 1 on 03/19/2022 by Jose Devine MD at OR [facility] Right: Wrist [employer] [id number] 06/19/2026 [id number] / / [id number] Mesh Flat Sheet 10x14 [id number] - [id number] Implanted:Qty: 1 on 12/11/2022 by Eros Dash MD at OR [facility] N/A: Abdomen CR BARD : DAVOL [id number] 06/17/2027 [id number] / / [id number] documented as of this encounter Advance Directives Documents on File Type Date Recorded Patient Operation Shift Supervisor Expl anation POLST 11/13/2020 POLST PENNSYLVA VALERIA [...] the patient have Health Care Power of Steeping Press Tender? No Full Code 01/28/2022 11:14 AM 01/28/2022 4:47 PM Full Code 05/22/2021 12:38 PM 05/22/2021 5:48 PM This order reflects the patients wishes and were consensually agreed upon. Question Answer Comments Discussion of Advance Directives occurred with: Not Discussed Does the patient have a Living Will? No Does the patient have Health Care Power of Steeping Press Tender? No Healthcare Agents on File Name Relationship Healthcare Agent [facility] Communication Zhen Chaseley Spouse Health Care Agent Care Teams Custodial Foreman Relationship Specialty Start Date End Date Luis Fernando Rojas MD [address] [place] [address] PCP - General Family Medicine 09/23/16 documented as of this encounter
--- OUTSIDE RECORDS SUMMARY | 2024-01-09 10:04 | External Medical Summary | Summary of Care ---
Author Name Unknown Organization [facility] Address [address] [place] [address] Phone [phone] Care Team Providers Care Airport Sales Agent Name Role Phone Luis Fernando Rojas MD Primary Care Provider [phone] Reason for Visit * Reason Onset Date Comments TRIAGE 11/28/2023 Encounter Details Date Type Department Care Team (Late st Contact Info) Description 11/28/2023 Telephone Vascular Surg [facility] [address], [place] [phone] Services, [facility] [address] [place] [address] TRIAGE Allergies Active Allergy Reactions Criticality Noted [...] 1,000 mcgIndications:S/P gastric bypass 1000 mcg IM [id number] 10/15/2022 07/19/2025 Active vitamin b-12 (Cyanocobalamin) inj 1,000 mcgIndications:Morbid obesity with BMI of 40.0-44.9, adult (HCC),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 [id number] 10/17/2023 12/11/19 25 Active documented as of [...] 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 10/15/2022 [facility] OTHER*[id number] 01/01/2022 S/P gastric bypass 01/01/2022 Marginal ulcer [...] 10/08/2022 Insulin long-term use 11/19/20182018 Overview: Duplicate half-way (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 insulin 11/19/2018 10/08/2022 Morbid [...] T-tube placement 04/16/2017 05/29/2017 [employer] Other*[id number] 04/13/2013 08/27/2016 Overview: Study Title: Genomic Markers for Patients with Cardiovascular Disease Project # [id number] Verifier: Siena Laws MD [phone] Hypertensive heart disease 03/25/2013 1 07/29/2016 Neuropathy, [...] encounter Miscellaneous Notes * Telephone Encounter - Matteo Salcido OSA [...] needs a fistulagram. She gets [place] at [facility] [place] // She would need a Tues/Thurs Last intervention was on 05/13/[address] Matt Operation: 1. Right upper extremity diagnostic fistulagram with peripheral venous angioplasty Findings: Patent right upper extremity arteriovenous anastomosis. Stenotic right upper extremity cephalic vein(s). She is scheduled with Dr. Cates on 12/18/23 for an office visit. They are to be faxing over notes but nothing has been scanned into the chart yet. I called [facility] at [phone] and spoke with Hina and she states that she needs a fistulagram. She states that the information has been faxed over already. She then put Jennifer on the phone and she states it was faxed to [phone]. I let her know that I am not sure where that fax machine is but if she can refax to [phone]. She states that she does need a fistulagram, her clearances are down and her flow rate is in the 300's. Secretaries, Please cancel office visit on 12/18/23 and get patient set up for fistulagram. Patient will need a Tues/ Thurs. Candi Torres LPN 11/28/2023 3:52 PM * Telephone Encounter - Gabriela Pierce OSA - 11/28/2023 3:08 PM EDT Please call patient back to schedule surgery to have her fistulagram cleaned out she is having problems with it documented in this encounter Plan of Treatment Upcoming Encounters Date Type Department Care Team (Late st Contact Info) Description 12/02/2023 Hospital Encounter OR [facility], OPERATING ROOM [facility] [place] [address] Micheal Urena MD [address] [place] [address] 12/02/2023 9:00 AM EDT Office Visit Podiatry [facility] 132 [facility] [place] [address] Calli Avila DPM 132 [facility] [place] [address] 12/03/2023 7:30 AM EDT Office Visit Sleep Disorders Ctr [facility] 132 [facility] [place] [phone] Veena Rainey CRNP 132 [facility] [place] [address] 12/30/2023 1:00 PM EDT Telemedicine Pharmacy, [address] [address] 02/13/2024 10:40 AM EDT Telemedicine Nutrition & Weight Management, [facility] 132 [facility] [place] [address] Katya Delaney RDN 132 [facility] [place] [address] 04/27/2024 12:20 PM EDT Office Visit Nutrition & Weight Management, [facility] 132 [facility] [place] [address] Cleo Fonseca PA-C 132 [facility] [place] [address] Scheduled Procedures Name Priority Associated Diagnoses Date/Ti [...] this encounter Medical Devices Implanted Type Area Resident Engineer Device Identifier Shelf Expiration Date Model / Serial / Lot Coil Vortex 35 Pltinm [id number] - [id number] Implanted:Qty: 1 on 11/27/2021 by Sterling Cates MD at OR [facility] Right: Upper Arm [employer] : NEURO INTR [id number] 08/15/2024 [id number] Coil Vortex 35 Pltinm 034834 - [id number] Implanted:Qty: 1 on 11/27/2021 by Sterling Cates MD at OR [facility] Right: Upper Arm [employer] : NEURO INTR [id number] 08/15/2024 [id number] Coil Vortex 35 Pltinm 509353 - [id number] Implanted:Qty: 1 on 11/27/2021 by Sterling Cates MD at OR [facility] Right: Upper Arm [employer] : NEURO INTR [id number] 08/15/2024 [id number] Coil Vortex 35 Pltinm 116475 - [id number] Implanted:Qty: 1 on 11/27/2021 by Sterling Cates MD at OR [facility] Right: Upper Arm [employer] : NEURO INTR [id number] 05/16/2024 [id number] Azur 35 Detachable 5mm 11cm - [id number] Implanted:Qty: 1 on 03/19/2022 by Jose Devine MD at OR [facility] Right: Wrist [employer] [id number] 10/18/2025 [id number] / / [id number] Azur 35 Detachable 5mm 11cm - [id number] Implanted:Qty: 1 on 03/19/2022 by Jose Devine MD at OR [facility] Right: Wrist [employer] [id number] 06/19/2026 [id number] / / [id number] Mesh Flat Sheet 10x14 [id number] - [id number] Implanted:Qty: 1 on 12/11/2022 by Eros Dash MD at OR [facility] N/A: Abdomen CR BARD : DAVOL [id number] 06/17/2027 [id number] / / [id number] documented as of this encounter Advance Directives Documents on File Type Date Recorded Patient Consultant Education Expl anation POLST 11/13/2020 POLST PENNSYLVA VALERIA [...] the patient have Health Care Power of Health Education Aide? No Full Code 01/28/2022 11:14 AM 01/28/2022 4:47 PM Full Code 05/22/2021 12:38 PM 05/22/2021 5:48 PM This order reflects the patients wishes and were consensually agreed upon. Question Answer Comments Discussion of Advance Directives occurred with: Not Discussed Does the patient have a Living Will? No Does the patient have Health Care Power of Health Education Aide? No Healthcare Agents on File Name Relationship Healthcare Agent Relationshi p Communication Zhen Finley Spouse Health Care Agent Care Teams Airport Sales Agent Relationship Specialty Start Date End Date Luis Fernando Rojas MD [address] [place] [facility] [place] [address] PCP - General Family Medicine 09/23/16 documented as of this encounter
--- OUTSIDE RECORDS SUMMARY | 2024-01-09 10:04 | External Medical Summary ---
Author Name Unknown Address Unknown Organization : Laboratory Report Ordering Provider Test Date Status TOMASA YOO 12/02/2023 09:30:14 Final Observation Date Value Abnormality Reference (Units ) Status Glucose Point of Care 12/02/2023 09:30:14 200 Above high normal 70-120 (mg/dL) Final Performing Location
--- OUTSIDE RECORDS SUMMARY | 2024-01-09 10:04 | External Medical Summary ---
Author Name Unknown Address Unknown Organization K01:[facility] [address] [facility] [address] [facility] [address] Laboratory Report Ordering Provider Test Date Status KAMRYN MORGAN 12/02/2023 09:57:07 Final Observation Date Value Abnormality Reference (Units ) Status Potassium, Whole Blood 12/02/2023 09:57:07 7.0 Above upper panic limits 3.5-5.1 (mmol/L) Final Performing Location [facility] [address] [facility] [address]
--- OUTSIDE RECORDS SUMMARY | 2024-01-09 10:04 | External Medical Summary | Summary of Care ---
Author Name Unknown Organization [facility] Address [address] [place] [address] Phone [phone] Care Team Providers Care Dining Chair Seat Cushion Trimmer Name Role Phone Luis Fernando Rojas MD Primary Care Provider [phone] Encounter Details Date Type Department Care Team (Late st Contact Info) Description 12/05/2023 Population Health External Data Unspecified Department Allergies [...] directed. 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 [id number] 10/17/2023 12/11/19 25 Active documented as of [...] 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 10/15/2022 [facility] RESE[facility] OTHER*[id number] 01/01/2022 S/P gastric bypass 01/01/2022 Marginal ulcer [...] T-tube placement 04/16/2017 05/29/2017 [employer] Other*[id number] 04/13/2013 08/27/2016 Overview: Study Title: Genomic Markers for Patients with Cardiovascular Disease Project # [id number] Travel Coordinator: Siena Laws MD [phone] Hypertensive heart disease 03/25/2013 1 07/29/2016 Neuropathy, [...] yrs 09/16/2018,04/14/2018,03/1104/11/2018 Pneumococcal Conjugate Vacci ne, 20-valent ([id number]) 12/02/2023(Deferred: - pt states she's already received) [...] 12/30/2023 8:20 AM EDT Office Visit Podiatry [facility] [address] [address] Calli Avila DPM [address] [place] [address] 12/30/2023 1:00 PM EDT [address] [address] [facility] [address] [facility] [place] [address] 02/13/2024 10:40 AM EDT Telemedicine Nutrition & Weight Management, [facility] [address] [place] [address] Katya Delaney RDN [address] [place] [address] 04/27/2024 12:20 PM EDT Office Visit Nutrition & Weight Management, [facility] [address] [place] [address] Cleo Fonseca PA-C [address] [place] [address] Scheduled Procedures Name Priority Associated Diagnoses Date/Ti [...] this encounter Medical Devices Implanted Type Area Water Main Pipe Layer Device Identifier Shelf Expiration Date Model / Serial / Lot Coil Vortex 35 Pltinm [id number] - [id number] Implanted:Qty: 1 on 11/27/2021 by Sterling Cates MD at OR [facility] Right: Upper Arm [employer] : NEURO INTR [id number] 08/15/2024 [id number] Coil Vortex 35 Pltinm 895633 - [id number] Implanted:Qty: 1 on 11/27/2021 by Sterling Cates MD at OR [facility] Right: Upper Arm [employer] : NEURO INTR [id number] 08/15/2024 [id number] Coil Vortex 35 Pltinm [id number] - [id number] Implanted:Qty: 1 on 11/27/2021 by Sterling Cates MD at OR [facility] Right: Upper Arm [employer] : NEURO INTR [id number] 08/15/2024 [id number] / / [id number] Coil Vortex 35 Pltinm 716843 - [id number] Implanted:Qty: 1 on 11/27/2021 by Sterling Cates MD at OR [facility] Right: Upper Arm [employer] : NEURO INTR [id number] 05/16/2024 [id number] / / [id number] Azur 35 Detachable 5mm 11cm - [id number] Implanted:Qty: 1 on 03/19/2022 by Jose Devine MD at OR [facility] Right: Wrist [employer] [id number] 10/18/2025 [id number] / / [id number] Azur 35 Detachable 5mm 11cm - [id number] Implanted:Qty: 1 on 03/19/2022 by Jose Devine MD at OR [facility] Right: Wrist [employer] [id number] 06/19/2026 [id number] / / [id number] Mesh Flat Sheet 10x14 [id number] - [id number] Implanted:Qty: 1 on 12/11/2022 by Eros Dash MD at OR [facility] N/A: Abdomen CR BARD : DAVOL [id number] 06/17/2027 [id number] / / [id number] documented as of this encounter Advance Directives Documents on File Type Date Recorded Patient Drill Hand Expl anation POLST 11/13/2020 POLST PENNSYLVA VALERIA [...] Agents on File Name Relationship Healthcare Agent [facility] p Communication Zhen Finley Spouse Health Care Agent Care Teams Dining Chair Seat Cushion Trimmer Relationship Specialty Start Date End Date Luis Fernando Rojas MD [address] [place] [address] PCP - General Family Medicine 09/23/16 documented as of this encounter
--- OUTSIDE RECORDS SUMMARY | 2024-01-09 10:05 | External Medical Summary | Summary of Care ---
Author Name Unknown Organization [facility] Address [address] [place] [address] Phone [phone] Care Team Providers Care Sandfill Operator Name Role Phone Luis Fernando Rojas MD Primary Care Provider [phone] Reason for Visit * Reason Onset Date Comments Forms Request 11/12/2023 [facility] Encounter Details Date Type Department Care Team (Late st Contact Info) Description 11/12/2023 Telephone [facility] [address] [place] [address] Luis Fernando Rojas MD [address] [place] [address] Forms Request ([employer]) Allergies Active Allergy Reactions Criticality Noted Date Comments Salvador Inhibitors Other (Please comment) High 0 HyperKalemia documented as of this encounter (statuses as of 11/17/2023) Medications Medication Sig Dispensed Refills Start Date [...] 1,000 mcgIndications:S/P gastric bypass 1000 mcg IM [id number] 10/15/2022 07/19/2025 Active vitamin b-12 (Cyanocobalamin) inj 1,000 mcgIndications:Morbid obesity with BMI of 40.0-44.9, adult (HCC),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 [id number] 10/17/2023 12/11/19 25 Active documented as of this encounter (statuses as of 11/17/2023) Active Problems Problem Noted Date Diagnosed Date [...] 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 10/15/2022 [facility] OTHER*[id number] 01/01/2022 S/P gastric bypass 01/01/2022 Marginal ulcer [...] as of this encounter (statuses as of 11/17/2023) Resolved Problems Problem Noted Date Diagnosed Date [...] 10/08/2022 Insulin long-term use 11/19/20182018 Overview: Duplicate MCC (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 insulin 11/19/2018 10/08/2022 Morbid [...] T-tube placement 04/16/2017 05/29/2017 [employer] Other*[id number] 04/13/2013 08/27/2016 Overview: Study Title: Genomic Markers for Patients with Cardiovascular Disease Project # [id number] Jackscrew Worker: Siena Laws MD [phone] Hypertensive heart disease 03/25/2013 1 07/29/2016 Neuropathy, [...] as of this encounter (statuses as of 11/17/2023) Immunizations Name Administration Dates Next Due COVID-19 [...] encounter Miscellaneous Notes * Telephone Encounter - Janice Orr LPN - 11/12/2023 9:16 AM EDT [facility] forms were placed in provider's mail slot. documented in this encounter Plan of Treatment Upcoming Encounters Date Type Department Care Team (Late st Contact Info) Description 12/30/2023 1:00 PM EDT Telemedicine Pharmacy, [place] [address] [address] [facility] [address] [address] 01/06/2024 3:00 PM EDT Office Visit Sleep Disorders Ctr [facility] [address] [facility] [facility] [address] [facility] [place] [phone] Veena Rainey CRNP [address] [place] [address] 02/13/2024 10:40 AM EDT Telemedicine Nutrition & Weight Management, [facility] [address] [place] [address] Katya Delaney RDN [address] [place] [address] 04/27/2024 12:20 PM EDT Office Visit Nutrition & Weight Management, [facility] [address] [facility] [address] [place] [place] [address] Cleo Fonseca PA-C [address] [place] [address] Scheduled Procedures Name Priority Associated Diagnoses Date/Ti [...] this encounter Medical Devices Implanted Type Area Window Assembler Device Identifier Shelf Expiration Date Model / Serial / Lot Coil Vortex 35 Pltinm 102412 - [id number] Implanted:Qty: 1 on 11/27/2021 [place] [facility] [place] Upper Arm [employer] : NEURO INTR [id number] 08/15/2024 [id number] / / [id number] Coil Vortex 35 Pltinm 165637 - [id number] Implanted:Qty: 1 on 11/27/2021 by Sterling Cates [place] [facility] [place] Upper Arm [employer] : NEURO INTR [id number] 08/15/2024 [id number] / / [id number] Coil Vortex 35 Pltinm [id number] - [id number] Implanted:Qty: 1 on 11/27/2021 by Sterling Cates [place] [facility] [place] Upper Arm [employer] : NEURO INTR [id number] 08/15/2024 [id number] / / [id number] Coil Vortex 35 Pltinm [id number] - [id number] Implanted:Qty: 1 on 11/27/2021 by Sterling Cates [place] [facility] [place] Upper Arm [employer] : NEURO INTR [id number] 05/16/2024 [id number] / / [id number] Azur 35 Detachable 5mm 11cm - [id number] Implanted:Qty: 1 on 03/19/2022 by Jose Devine [place] [facility] [place]: Wrist [employer] [id number] 10/18/2025 [id number] / / [id number] Azur 35 Detachable 5mm 11cm - [id number] Implanted:Qty: 1 on 03/19/2022 by Jose Devine [place] [facility] [place] Wrist [employer] [id number] 06/19/2026 [id number] / / [id number] Mesh Flat Sheet 10x14 [id number] - [id number] Implanted:Qty: 1 on 12/11/2022 by Eros Dash MD [place] [facility] [place]/A: Abdomen CR BARD : DAVOL [id number] 06/17/2027 [id number] / / [id number] documented as of this encounter Advance Directives Documents on File Type Date Recorded Patient Associate Professor Of Music Expl anation POLST 11/13/2020 POLST PENNSYLVA VALERIA [...] the patient have Health Care Power of Production Support Analyst? No Full Code 01/28/2022 11:14 AM 01/28/2022 4:47 PM Full Code 05/22/2021 12:38 PM 05/22/2021 5:48 PM This order reflects the patients wishes and were consensually agreed upon. Question Answer Comments Discussion of Advance Directives occurred with: Not Discussed Does the patient have a Living Will? No Does the patient have Health Care Power of Production Support Analyst? No Healthcare Agents on File Name Relationship Healthcare Agent Relationshi p Communication Zhen Finley Spouse Health Care Agent Care Teams Sandfill Operator Relationship Specialty Start Date End Date Luis Fernando Rojas MD [address] [place] [address] PCP - General Family Medicine 09/23/16 documented as of this encounter
--- OUTSIDE RECORDS SUMMARY | 2024-01-09 10:05 | External Medical Summary | Summary of Care ---
Author Name Unknown Organization [facility] Address [address] [place] [address] Phone [phone] Care Team Providers Care X Ray Operator Name Role Phone Heber Rojas MD Primary Care Provider [phone] Reason for Visit * Reason Onset Date Comments Advice 11/11/2023 Encounter Details Date Type Department Care Team (Late st Contact Info) Description 11/11/2023 Telephone [facility] [address] [facility] [place] [address] Sameer Hassan MD [address] [facility] [place] [address] Advice Allergies Active Allergy Reactions Criticality Noted Date Comments Salvador Inhibitors Other (Please comment) High 0 HyperKalemia documented as of this encounter (statuses as of 11/12/2023) Medications Medication Sig Dispensed Refills Start Date End Date Status Melatonin 10 MG Tablet Take 12 mg by mouth at bedtime. 0 Active Aspirin 81 MG Oral Tablet ChewableIndicatio ns:Type 2 diabetes mellitus 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 dialysis, with long-term current use of insulin (HCC) Take 1 Tab by mouth at bedtime. with food. 90 Tab 3 02/16/2021 Active FreeStyle Jennifer 2 Sensor Use as directed. Replace every 14 days (supplied through DME) 7 Each 3 05/17/2021 Active CPAP every night at bedtime. 12 0 Active Ketoconazole 2 % External Shampoo (Nizoral)Indicati ons:Seborrheic dermatitis Apply to scalp once weekly. Lather [...] 0 Active hydrALAZINE HCl 100 MG Oral TabletIndications :HTN, goal below 140/90 TAKE 1 TABLET BY MOUTH EVERY DAY IN THE MORNING AND 1 TABLET AT NOON, AND 1 TABLET AT BEDTIME 270 Tablet 2 12/11/2022 4 Active Carvedilol 12.5 MG Oral Tablet (Coreg)Indication s:HTN, goal below 140/90 TAKE ONE TABLET BY MOUTH EVERY DAY IN THE MORNING AND TAKE ONE TABLET BY MOUTH EVERY DAY BEFORE BEDTIME 180 Tablet 4 12/11/2022 4 Active Citalopram Hydrobromide 40 MG Oral Tablet (CeleXA)Indicatio ns:Major depressive disorder, single episode, moderate (HCC) Take 1 Tablet by mouth in the morning. 90 Tablet 3 04/17/2023 Active Calcium Citrate-Vitamin D 315-5 MG-MCG Oral Tablet Take 1 Tablet by mouth in the morning. 600 mg of calcium twice daily + 20 mcg of vitamin d twice daily. 0 Active BD Pen Needle Mini U/F 31G X 5 MM (Insulin Pen Needle)Indication s:Type 2 diabetes mellitus with hemoglobin A1c goal of less than 7.0% (HCC) Use 4 times daily with insulin 400 Each 3 05/01/2023 Active Omeprazole 20 MG Oral Capsule Delayed Release (PriLOSEC)Indicat ions:Gastroesopha geal reflux disease without esophagitis Take 1 Capsule [...] 06/24/2023 Levothyroxine Sodium 100 MCG Oral Tablet (Levoxyl)Indicati ons:Hypothyroidis m, unspecified type TAKE 1 TABLET BY MOUTH DAILY AT LEAST 30 MINUTES PRIOR TO FIRST MEAL OF THE DAY OR OTHER MEDICATIONS 90 Tablet 3 09/10/2023 Active Gabapentin 300 MG Oral Capsule (Neurontin) Take 1 Capsule by mouth at bedtime. Follow up with your primary care provider for further management. 90 Capsule 3 09/10/2023 Active Atorvastatin Calcium 40 MG Oral Tablet (Lipitor)Indicati ons:Dyslipidemia, goal LDL below 100 TAKE ONE TABLET BY MOUTH EVERY EVENING 90 Tablet 3 09/10/2023 5 Active Semaglutide(0.25 or 0.5MG/DOS) 2 MG/3ML Solution Pen-injector (Ozempic)Indicati ons:Type 2 diabetes mellitus with hemoglobin A1c goal of less than 7.0% (HCC) Inject 0.25 mg under the skin for 4 weeks, then increase to 0.5 mg weekly thereafter 3 mL 3 10/20/2023 Active Insulin Glargine Solostar 100 UNIT/ML Subcutaneous Solution Pen-injector (Basaglar KwikPen)Indicatio ns:Type 2 diabetes mellitus with hemoglobin A1c goal of less than 7.0% (HCC) Inject 16 units subcutaneously every day. 30 mL 4 10/28/2023 Active Insulin Lispro (1 Unit Dial) 100 UNIT/ML Subcutaneous Solution Pen-injector (HumaLOG KwikPen)Indicatio ns:Type 2 diabetes mellitus with hemoglobin A1c [...] affected area 100 g 2 10/30/2023 Active Amoxicillin 500 MG Oral Capsule (Amoxil) Take 4 Capsules by mouth once for 1 dose. 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 Magallanes. Renae-W-Briana from -. Has dialysis catheter in the [...] as of this encounter (statuses as of 11/12/2023) Resolved Problems Problem Noted Date Diagnosed Date [...] 10/08/2022 Insulin long-term use 11/19/20182018 Overview: Duplicate termination clerk (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 insulin 11/19/2018 10/08/2022 Morbid [...] T-tube placement 04/16/2017 05/29/2017 [employer] [facility] Other*[id number] 04/13/2013 08/27/2016 Overview: Study Title: Genomic Markers for Patients with Cardiovascular Disease Project # [id number] Mortgage Accounting Clerk: Siena Laws MD [phone] Hypertensive heart disease 03/25/2013 1 07/29/2016 Neuropathy, [...] as of this encounter (statuses as of 11/12/2023) Immunizations Name Administration Dates Next Due COVID-19 [...] as of this encounter Miscellaneous Notes * Addendum Note - Heber Rojas MD - 11/11/2023 5:08 PM EDTAddended by: HEBER ROJAS on: 11/11/2023 05:08 PM Modules accepted: Orders * Telephone Encounter - Heber Rojas MD - 11/11/2023 5:07 PM EDT Notify Pt: I have prescribed Amox to take 4 tabs 1 hr before procedure. To Kim. This is as advised by dr Reeves. * Telephone Encounter - Crystal Alfonso LPN - 11/11/2023 10:37 AM EDT Hope is made aware Advised pt is a dialysis patient and is seen by Dr Hassan at dialysis unit [facility] will contact pt to inform of this Hope Requests copy of note faxed to [phone] Faxed with confirmation received Note faxed to [facility] for medication order With confirmation received * Telephone Encounter - Crystal Alfonso LPN - 11/11/2023 9:07 AM EDT Spoke with Hope at [facility] Dentistry Pt is have a 2 step cleaning States this cleaning goes under gum so is not your typical cleaning Pt is on dialysis @ [facility] Is this OK for pt to proceed with procedure Does pt need pre medication Please advise * Telephone Encounter - Neena Mantilla OSA - 11/11/2023 8:54 AM EDT Patient going into dentist office next Friday (November 18, 2023). Dentist office calling for clearance so that patient can have procedure done. Would like to clarify that patient does not need medication before the procedure. Please reach out to them at ([phone]). documented in this encounter Plan of Treatment Upcoming Encounters Date Type Department Care Team (Late st Contact Info) Description 11/13/2023 9:40 AM EDT Office Visit Podiatry [facility] [address] [address] Calli Avila DPM [address] [place] [address] 12/30/2023 1:00 PM EDT Telemedicine Pharmacy, [place] [address] [facility] [place] [address] [facility] [address] [facility] [place] [address] 01/06/2024 3:00 PM EDT Office Visit Sleep Disorders Ctr [facility] [address] [place] [phone] Veena Rainey CRNP [address] [place] [address] 02/13/2024 10:40 AM EDT Telemedicine Nutrition & Weight Management, [facility] [address] [place] [address] Katya Delaney RDN [address] [place] [address] 04/27/2024 12:20 PM EDT Office Visit Nutrition & Weight Management, [facility] [address] [place] [address] Cleo Fonseca PA-C [address] [place] [address] Scheduled Procedures Name Priority Associated Diagnoses Date/Ti me COLONOSCOPY FLEXIBLE PROXIMA L DIAGNOSTIC Recall History of colonic polyps Health Maintenance Due Date Last Done Comments Pneumococcal Vaccine: Pediatrics (0 to 5 Years) [...] 07/08/2024 07/08/2023, 03/22, 04/18/2022, Additional history exists COLONOSCOPY-EVERY 5 YRS AGES 18-100 02/28/2028 02/27/2023, 12/11/2017, 12/02/2013, Additional history exists DTaP,Tdap,and Td Vaccines (4 - Td or Tdap) 04/12/2030 04/12/2020, 04/12/2020, 04/05/2010 Zoster Vaccines Completed 12/13/2020, 10/12/2020 Albumin/Creatinine Ratio Discontinued 021, 12/09/2019, 01/02/2016, Additional history exists Influenza Vaccine (FLU shot) [...] this encounter Medical Devices Implanted Type Area Food Safety Technician Device Identifier Shelf Expiration Date Model / Serial / Lot Coil Vortex 35 Pltinm [id number] - [id number] Implanted:Qty: 1 on 11/27/2021 by Sterling C[place] [facility] [place] Upper Arm [employer] : NEURO INTR [id number] 08/15/2024 [id number] / / [id number] Coil Vortex 35 Pltinm 674555 - [id number] Implanted:Qty: 1 on 11/27/2021 by Sterling Cates [place] [facility] [place] Upper Arm [employer] : NEURO INTR [id number] 08/15/2024 [id number] / / [id number] Coil Vortex 35 Pltinm [id number] - [id number] Implanted:Qty: 1 on 11/27/2021 by Sterling Cates [place] [facility] [place] Upper Arm [employer] : NEURO INTR [id number] 08/15/2024 [id number] / / [id number] Coil Vortex 35 Pltinm [id number] - [id number] Implanted:Qty: 1 on 11/27/2021 by Sterling Cates [place] [facility] [place] Upper Arm [employer] : NEURO INTR [id number] 05/16/2024 [id number] / / [id number] Azur 35 Detachable 5mm 11cm - [id number] Implanted:Qty: 1 on 03/19/2022 by oJse Devine MD [place] [facility] [place] Wrist [employer] [id number] 10/18/2025 [id number] / / [id number] Azur 35 Detachable 5mm 11cm - [id number] Implanted:Qty: 1 on 03/19/2022 by Jose Devine [place] [facility] [place] Wrist [employer] [id number] 06/19/2026 [id number] / / [id number] Mesh Flat Sheet 10x14 [id number] - [id number] Implanted:Qty: 1 on 12/11/2022 by Eros Dash MD [place] [facility] [place]A: Abdomen CR BARD : DAVOL [id number] 06/17/2027 [id number] / / [id number] documented as of this encounter Advance Directives Documents on File Type Date Recorded Patient Brickmason Helper Expl anation POLST 11/13/2020 POLST NASREEN SHAW ORDERS FOR LIFE-SUSTAINING TREATMENT Latest Code Status [...] the patient have Health Care Power of Weight Engineer? No Full Code 01/28/2022 11:14 AM 01/28/2022 4:47 PM Full Code 05/22/2021 12:38 PM 05/22/2021 5:48 PM This order reflects the patients wishes and were consensually agreed upon. Question Answer Comments Discussion of Advance Directives occurred with: Not Discussed Does the patient have a Living Will? No Does the patient have Health Care Power of Weight Engineer? No Healthcare Agents on File Name Relationship Healthcare Agent Relationshi p Communication Zhen Finley Spouse Health Care Agent Care Teams X Ray Operator Relationship Specialty Start Date End Date Heber Rojas MD [address] [place] [address] PCP - General Family Medicine 09/23/16 documented as of this encounter
--- OUTSIDE RECORDS SUMMARY | 2024-01-09 10:05 | External Medical Summary | Summary of Care ---
Author Name Unknown Organization [facility] Address [address] [place] [address] Phone [phone] Care Team Providers Care Lock Plater Name Role Phone Luis Fernando Rojas MD Primary Care Provider [phone] Reason for Visit * Reason Onset Date Comments TRIAGE 11/28/2023 Encounter Details Date Type Department Care Team (Late st Contact Info) Description 11/28/2023 Telephone Vascular Surg [facility] [address], [place] [phone] Services, [facility] [address] [place] [address] TRIAGE Allergies Active Allergy Reactions Criticality Noted [...] 1,000 mcgIndications:S/P gastric bypass 1000 mcg IM [id number] 10/15/2022 07/19/2025 Active vitamin b-12 (Cyanocobalamin) inj 1,000 mcgIndications:Morbid obesity with BMI of 40.0-44.9, adult (HCC),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 [id number] 10/17/2023 12/11/19 25 Active documented as of [...] 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 10/15/2022 [facility] OTHER*[id number] 01/01/2022 S/P gastric bypass 01/01/2022 Marginal ulcer [...] T-tube placement 04/16/2017 05/29/2017 [employer] [facility] Other*[id number] 04/13/2013 08/27/2016 Overview: Study Title: Genomic Markers for Patients with Cardiovascular Disease Project # [id number] Can Dryer: Siena Lasw MD [phone] Hypertensive heart disease 03/25/2013 1 07/29/2016 Neuropathy, [...] encounter Miscellaneous Notes * Telephone Encounter - Gabriela Pierce OSA - 11/28/2023 3:08 PM EDT Please call patient back to schedule surgery to have her fistulagram cleaned out she is having problems with it documented in this encounter Plan of Treatment Upcoming Encounters Date Type Department Care Team (Late st Contact Info) Description 12/02/2023 9:00 AM EDT Office Visit Podiatry [facility] [address] [facility] [place] [address] Calli Avila DPM [address] [facility] [place] [address] 12/03/2023 7:30 AM EDT Office Visit Sleep Disorders Ctr [facility] [address] [facility] [place] [phone] Veena Rainey CRNP [address] [facility] [place] [address] 12/18/2023 11:45 AM EDT Office Visit Vascular Surg [facility] [address] [place] [address] Sterling Cates MD [address] [place] [address] 12/30/2023 1:00 PM EDT Telemedicine Pharmacy, [place] [address] [place] [address] [facility] [place] [address] 02/13/2024 10:40 AM EDT Telemedicine Nutrition & Weight Management, [facility] [address] [facility] [place] [address] Katya Delaney RDN [address] [facility] [place] [address] 04/27/2024 12:20 PM EDT Office Visit Nutrition & Weight Management, [facility] [address] [facility] [place] [address] Cleo Fonseca PA-C [address] [facility] [place] [address] Scheduled Procedures Name Priority Associated Diagnoses Date/Ti [...] this encounter Medical Devices Implanted Type Area Colorer Hides And Skins Device Identifier Shelf Expiration Date Model / Serial / Lot Coil Vortex 35 Pltinm [id number] - [id number] Implanted:Qty: 1 on 11/27/2021 by Sterling C[place] [facility] [place] Upper Arm [employer] : NEURO INTR [id number] 08/15/2024 [id number] 1 / / [id number] Coil Vortex 35 Pltinm [id number] - [id number] Implanted:Qty: 1 on 11/27/2021 by Sterling Cates [place] [facility] [place] Upper Arm [employer] : NEURO INTR [id number] 08/15/2024 [id number] 1 / / [id number] Coil Vortex 35 Pltinm 116837 - [id number] Implanted:Qty: 1 on 11/27/2021 by Sterling Cates [place] [facility] [place]: Upper Arm [employer] : NEURO INTR [id number] 08/15/2024 [id number] 1 / / [id number] Coil Vortex 35 Pltinm [id number] - [id number] Implanted:Qty: 1 on 11/27/2021 by Sterling Cates [place] [facility] [place]: Upper Arm [employer] : NEURO INTR [id number] 05/16/2024 [id number] / / [id number] Azur 35 Detachable 5mm 11cm - [id number] Implanted:Qty: 1 on 03/19/2022 by Jose Devine [place] [facility] [place] Wrist [employer] [id number] 10/18/2025 [id number] / / [id number] Azur 35 Detachable 5mm 11cm - [id number] Implanted:Qty: 1 on 03/19/2022 by Jose Devine MD [place] [facility] [place]: Wrist [employer] [id number] 06/19/2026 [id number] / / [id number] Mesh Flat Sheet 10x14 [id number] - [id number] Implanted:Qty: 1 on 12/11/2022 by Eros Dash MD [place] [facility] [place]/A: Abdomen CR BARD : DAVOL [id number] 06/17/2027 [id number] / / [id number] documented as of this encounter Advance Directives Documents on File Type Date Recorded Patient Medical Grade Shoemaker Expl anation POLST 11/13/2020 POLST PENNSYLVA VALERIA [...] the patient have Health Care Power of Fruit Thinner? No Full Code 01/28/2022 11:14 AM 01/28/2022 4:47 PM Full Code 05/22/2021 12:38 PM 05/22/2021 5:48 PM This order reflects the patients wishes and were consensually agreed upon. Question Answer Comments Discussion of Advance Directives occurred with: Not Discussed Does the patient have a Living Will? No Does the patient have Health Care Power of Fruit Thinner? No Healthcare Agents on File Name Relationship Healthcare Agent Relationshi p Communication Zhen Finley Spouse Health Care Agent Care Teams Lock Plater Relationship Specialty Start Date End Date Luis Fernando Rojas MD [address] [facility] [place] [address] PCP - General Family Medicine 09/23/16 documented as of this encounter
--- OUTSIDE RECORDS SUMMARY | 2024-01-09 10:05 | External Medical Summary | Summary of Care ---
Author Name Unknown Organization [facility] Address [address] [place] [address] Phone [phone] Care Team Providers Care Digital Computer Operator Name Role Phone Luis Fernando Rojas MD Primary Care Provider [phone] Reason for Visit * Reason Onset Date Comments Forms Request 11/12/2023 [facility] Encounter Details Date Type Department Care Team (Late st Contact Info) Description 11/12/2023 Telephone [facility] [address] [place] [address] Luis Fernando Rojas MD [address] [place] [address] Forms Request ([facility]) Allergies Active Allergy Reactions Criticality Noted Date Comments Salvador Inhibitors Other (Please comment) High 0 HyperKalemia documented as of this encounter (statuses as of 11/25/2023) Medications Medication Sig Dispensed Refills Start Date [...] 1,000 mcgIndications:S/P gastric bypass 1000 mcg IM [id number] 10/15/2022 07/19/2025 Active vitamin b-12 (Cyanocobalamin) inj 1,000 mcgIndications:Morbid obesity with BMI of 40.0-44.9, adult (HCC),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 [id number] 10/17/2023 12/11/19 25 Active documented as of this encounter (statuses as of 11/25/2023) Active Problems Problem Noted Date Diagnosed Date [...] 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 10/15/2022 [facility] OTHER*[id number] 01/01/2022 S/P gastric bypass 01/01/2022 Marginal ulcer [...] as of this encounter (statuses as of 11/25/2023) Resolved Problems Problem Noted Date Diagnosed Date [...] 10/08/2022 Insulin long-term use 11/19/20182018 Overview: Duplicate boston cutter (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 insulin 11/19/2018 10/08/2022 Morbid [...] T-tube placement 04/16/2017 05/29/2017 [employer] Other*[id number] 04/13/2013 08/27/2016 Overview: Study Title: Genomic Markers for Patients with Cardiovascular Disease Project # [id number] Platform Mill Supervisor: Siena Laws MD [phone] Hypertensive heart disease 03/25/2013 1 07/29/2016 Neuropathy, [...] as of this encounter (statuses as of 11/25/2023) Immunizations Name Administration Dates Next Due COVID-19 [...] encounter Miscellaneous Notes * Telephone Encounter - Sena Gonzáles LPN - 11/25/2023 5:58 PM EDT Received approval from Aline Tsai through 07/20/2024 * Telephone Encounter - Vera Langston [facility] - 11/20/2023 1:53 PM EDT Taken care of by [facility]. Vera Langston, PharmD, BCACP Clinical Pharmacist Medication Therapy Disease Management 11/20/2023, 1:53 PM * Telephone Encounter - Janice Orr LPN - 11/12/2023 9:16 AM EDT [facility] forms were placed in provider's mail slot. documented in this encounter Plan of Treatment Upcoming Encounters Date Type Department Care Team (Late st Contact Info) Description 12/02/2023 9:00 AM EDT Office Visit Podiatry [facility] [address] [facility] [place] [address] Calli Avila DPM [address] [facility] [place] [address] 12/03/2023 7:30 AM EDT Office Visit Sleep Disorders Ctr [facility] [address] [facility] [place] [phone] Veena Rainey CRNP [address] [facility] [place] [address] 12/30/2023 1:00 PM EDT Telemedicine Pharmacy, [address] [place] [address] [place], [facility] [address] [place] [address] [place] [address] 02/13/2024 10:40 AM EDT Telemedicine Nutrition & Weight Management, [facility] [address] [facility] [place] [address] Katya Delaney RDN [address] [place] [address] 04/27/2024 12:20 PM EDT Office Visit Nutrition & Weight Management, [facility] [address] [place] [address] Cloe Fonseca PA-C [address] [place] [address] Scheduled Procedures Name Priority Associated Diagnoses Date/Ti [...] this encounter Medical Devices Implanted Type Area Syruper Device Identifier Shelf Expiration Date Model / Serial / Lot Coil Vortex 35 Pltinm [id number] - [id number] Implanted:Qty: 1 on 11/27/2021 by Sterling Cates MD at OR [facility] Right: Upper Arm [employer] : NEURO INTR [id number] 08/15/2024 [id number] Coil Vortex 35 Pltinm [id number] - [id number] Implanted:Qty: 1 on 11/27/2021 by Sterling Cates MD at OR [facility] Right: Upper Arm [employer] : NEURO INTR [id number] 08/15/2024 [id number] Coil Vortex 35 Pltinm [id number] - [id number] Implanted:Qty: 1 on 11/27/2021 by Sterling Cates MD at OR [facility] Right: Upper Arm [employer] : NEURO INTR [id number] 08/15/2024 [id number] Coil Vortex 35 Pltinm [id number] - [id number] Implanted:Qty: 1 on 11/27/2021 by Sterling Cates MD at OR [facility] Right: Upper Arm [employer] : NEURO INTR [id number] 05/16/2024 [id number] Azur 35 Detachable 5mm 11cm - [id number] Implanted:Qty: 1 on 03/19/2022 by Jose Devine MD at OR [facility] Right: Wrist [employer] [id number] 10/18/2025 [id number] / / [id number] Azur 35 Detachable 5mm 11cm - [id number] Implanted:Qty: 1 on 03/19/2022 by Jose Devine MD at OR [facility] Right: Wrist [employer] [id number] 06/19/2026 [id number] / / [id number] Mesh Flat Sheet 10x14 [id number] - [id number] Implanted:Qty: 1 on 12/11/2022 by Eros Dash MD at OR [facility] N/A: Abdomen CR BARD : DAVOL [id number] 06/17/2027 [id number] / / [id number] documented as of this encounter Advance Directives Documents on File Type Date Recorded Patient Mental Health Program Manager Expl anation POLST 11/13/2020 POLST PEN[place]VA VALERIA [...] the patient have Health Care Power of Coal Miner? No Full Code 01/28/2022 11:14 AM 01/28/2022 4:47 PM Full Code 05/22/2021 12:38 PM 05/22/2021 5:48 PM This order reflects the patients wishes and were consensually agreed upon. Question Answer Comments Discussion of Advance Directives occurred with: Not Discussed Does the patient have a Living Will? No Does the patient have Health Care Power of Coal Miner? No Healthcare Agents on File Name Relationship Healthcare Agent Relationshi p Communication Zhen Finley Spouse Health Care Agent Care Teams Digital Computer Operator Relationship Specialty Start Date End Date Luis Fernando Rojas MD [address] [place] [address] PCP - General Family Medicine 09/23/16 documented as of this encounter
--- OUTSIDE RECORDS SUMMARY | 2024-01-09 10:05 | External Medical Summary | Summary of Care ---
Author Name Unknown Organization [facility] Address [address] [place] [address] Phone [phone] Care Team Providers Care Statistical Financial Analyst Name Role Phone Luis Fernando Rojas MD Primary Care Provider [phone] Reason for Visit * Reason Onset Date Comments Forms Request 11/12/2023 [facility] Encounter Details Date Type Department Care Team (Late st Contact Info) Description 11/12/2023 Telephone [facility] [address] [place] [address] Luis Fernando Rojas MD [address] [place] [address] Forms Request ([facility]) Allergies Active Allergy Reactions Criticality Noted Date Comments Salvador Inhibitors Other (Please comment) High 0 HyperKalemia documented as of this encounter (statuses as of 11/20/2023) Medications Medication Sig Dispensed Refills Start Date [...] 1,000 mcgIndications:S/P gastric bypass 1000 mcg IM [id number] 10/15/2022 07/19/2025 Active vitamin b-12 (Cyanocobalamin) inj 1,000 mcgIndications:Morbid obesity with BMI of 40.0-44.9, adult (HCC),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 [id number] 10/17/2023 12/11/19 25 Active documented as of this encounter (statuses as of 11/20/2023) Active Problems Problem Noted Date Diagnosed Date [...] 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 10/15/2022 [facility] OTHER*[id number] 01/01/2022 S/P gastric bypass 01/01/2022 Marginal ulcer [...] as of this encounter (statuses as of 11/20/2023) Resolved Problems Problem Noted Date Diagnosed Date [...] 10/08/2022 Insulin long-term use 11/19/20182018 Overview: 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 11/19/2018 10/08/2022 Morbid [...] T-tube placement 04/16/2017 05/29/2017 [employer] Other*[id number] 04/13/2013 08/27/2016 Overview: Study Title: Genomic Markers for Patients with Cardiovascular Disease Project # [id number] Stripper [place]: Siena Laws MD [phone] Hypertensive heart disease 03/25/2013 1 07/29/2016 Neuropathy, [...] as of this encounter (statuses as of 11/20/2023) Immunizations Name Administration Dates Next Due COVID-19 [...] encounter Miscellaneous Notes * Telephone Encounter - Vera Langston [facility] - 11/20/2023 1:53 PM EDT Taken care of by [facility]. Vera Langston, PharmD, BCACP Clinical Pharmacist Medication Therapy Disease Management 11/20/2023, 1:53 PM * Telephone Encounter - Janice Orr LPN - 11/12/2023 9:16 AM EDT [facility] forms were placed in provider's mail slot. documented in this encounter Plan of Treatment Upcoming Encounters Date Type Department Care Team (Late st Contact Info) Description 12/02/2023 9:00 AM EDT Office Visit Podiatry [facility] [address] [address] Calli Avila DPM [address] [place] [address] 12/30/2023 1:00 PM EDT Telemedicine Pharmacy, [place] [address] [place] [address] [facility] [address] [place] [address] 01/06/2024 3:00 PM EDT Office Visit Sleep Disorders Ctr [facility] [address] [phone] Veena Rainey CRNP [address] [place] [address] 02/13/2024 10:40 AM EDT Telemedicine Nutrition & Weight Management, [facility] [address] [place] [address] Katya Delaney RDN [address] [place] [address] 04/27/2024 12:20 PM EDT Office Visit Nutrition & Weight Management, [facility] [address] [place] [address] Cleo Fonseca PA-C [address] [place] [address] Scheduled Procedures Name Priority Associated Diagnoses Date/Ti [...] this encounter Medical Devices Implanted Type Area Material Engineer Device Identifier Shelf Expiration Date Model / Serial / Lot Coil Vortex 35 Pltinm [id number] - [id number] Implanted:Qty: 1 on 11/27/2021 by Sterling aCtes MD at OR [facility] Right: Upper Arm [employer] : NEURO INTR [id number] 08/15/2024 [id number] / / [id number] Coil Vortex 35 Pltinm 621321 - [id number] Implanted:Qty: 1 on 11/27/2021 by Sterling Cates MD at OR [facility] Right: Upper Arm [employer] : NEURO INTR [id number] 08/15/2024 [id number] / / [id number] Coil Vortex 35 Pltinm 197421 - [id number] Implanted:Qty: 1 on 11/27/2021 by Sterling Cates MD at OR [facility] Right: Upper Arm [employer] : NEURO INTR [id number] 08/15/2024 [id number] / / [id number] Coil Vortex 35 Pltinm 824594 - [id number] Implanted:Qty: 1 on 11/27/2021 by Sterling Cates MD at OR [facility] Right: Upper Arm [employer] : NEURO INTR [id number] 05/16/2024 [id number] / / [id number] Azur 35 Detachable 5mm 11cm - [id number] Implanted:Qty: 1 on 03/19/2022 by Jose Devine MD at OR [facility] Right: Wrist [facility] MEDHAT [id number] 10/18/2025 [id number] / / [id number] Azur 35 Detachable 5mm 11cm - [id number] Implanted:Qty: 1 on 03/19/2022 by Jose Devine MD at OR [facility] Right: Wrist [employer] [id number] 06/19/2026 [id number] / / [id number] Mesh Flat Sheet 10x14 [id number] - [id number] Implanted:Qty: 1 on 12/11/2022 by Eros Dash MD at OR [facility] N/A: Abdomen CR BARD : DAVOL [id number] 06/17/2027 [id number] / / [id number] documented as of this encounter Advance Directives Documents on File Type Date Recorded Patient Magnetic Grinder Operator Expl anation POLST 11/13/2020 POLST [place]VA [...] the patient have Health Care Power of Disbursement Clerk? No Full Code 01/28/2022 11:14 AM 01/28/2022 4:47 PM Full Code 05/22/2021 12:38 PM 05/22/2021 5:48 PM This order reflects the patients wishes and were consensually agreed upon. Question Answer Comments Discussion of Advance Directives occurred with: Not Discussed Does the patient have a Living Will? No Does the patient have Health Care Power of Disbursement Clerk? No Healthcare Agents on File Name Relationship Healthcare Agent [facility] laisha Communication Zhen Finley Spouse Health Care Agent Care Teams Statistical Financial Analyst Relationship Specialty Start Date End Date Luis Fernando Rojas MD [address] [place] [address] PCP - General Family Medicine 09/23/16 documented as of this encounter
--- OUTSIDE RECORDS SUMMARY | 2024-01-09 10:05 | External Medical Summary | Summary of Care ---
Author Name Unknown Organization [facility] Address [address] [place] [address] Phone [phone] Care Team Providers Care Transit Vehicle Inspector Name Role Phone Luis Fernando Rojas MD Primary Care Provider [phone] Encounter Details Date Type Department Care Team (Late st Contact Info) Description 11/26/2023 Result Scan Unspecified Department Ulises Stevenson, DO [address] [place] [address] <No scans attached> Allergies Active Allergy Reactions Criticality Noted Date Comments Salvador Inhibitors Other (Please comment) High 0 HyperKalemia documented as of this encounter (statuses as of 11/26/2023) Medications Medication Sig Dispensed Refills Start Date [...] directed. 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 10/15/2022 [facility] OTHER*[id number] 01/01/2022 S/P gastric bypass 01/01/2022 Marginal ulcer [...] on dialysis 03/14 Last Assessment & Plan: [facility] since [...] as of this encounter (statuses as of 11/26/2023) Resolved Problems Problem Noted Date Diagnosed Date [...] T-tube placement 04/16/2017 05/29/2017 [employer] Other*[id number] 04/13/2013 08/27/2016 Overview: Study Title: Genomic Markers for Patients with Cardiovascular Disease Project # [id number] Buckle And Button Maker: Siena Laws MD [phone] Hypertensive heart disease 03/25/2013 1 07/29/2016 Neuropathy, [...] as of this encounter (statuses as of 11/26/2023) Immunizations Name Administration Dates Next Due COVID-19 [...] 12/02/2023 9:00 AM EDT Office Visit Podiatry [facility] [address] [place] [address] Calli Avila DPM [address] [place] [address] 12/03/2023 7:30 AM EDT Office Visit Sleep Disorders Ctr [facility] [address] [place] [address] Veena Rainey CRNP [address] [place] [address] 12/30/2023 1:00 PM EDT Telemedicine Pharmacy, [place] [address] [facility], [place] [address] [facility] [address] [facility], [place] [address] 02/13/2024 10:40 AM EDT Telemedicine Nutrition & Weight Management, [facility] [address] [place] [address] Katya Delaney RDN [address] [place] [address] 04/27/2024 12:20 PM EDT Office Visit Nutrition & Weight Management, [facility] [address] [place] [address] Cleo Fonseca PA-C [address] [place] [address] Scheduled Procedures Name Priority Associated Diagnoses Date/Ti [...] this encounter Medical Devices Implanted Type Area Oil Mixer Device Identifier Shelf Expiration Date Model / Serial / Lot Coil Vortex 35 Pltinm [id number] - [id number] Implanted:Qty: 1 on 11/27/2021 by Sterling Cates MD at OR [facility] [place] Right: Upper Arm [employer] : NEURO INTR [id number] 08/15/2024 [id number] Coil Vortex 35 Pltinm 838187 - [id number] Implanted:Qty: 1 on 11/27/2021 by Sterling Cates MD at OR [facility] [place] Right: Upper Arm [employer] : NEURO INTR [id number] 08/15/2024 [id number] / / [id number] Coil Vortex 35 Pltinm 142403 - [id number] Implanted:Qty: 1 on 11/27/2021 by Sterling Cates MD at OR [facility] [place] Right: Upper Arm [employer] : NEURO INTR [id number] 08/15/2024 [id number] / / [id number] Coil Vortex 35 Pltinm 822383 - [id number] Implanted:Qty: 1 on 11/27/2021 by Sterling Cates MD at OR [facility] [place] Right: Upper Arm [employer] : NEURO INTR [id number] 05/16/2024 [id number] / / [id number] Azur 35 Detachable 5mm 11cm - [id number] Implanted:Qty: 1 on 03/19/2022 by Jose Devine MD at OR [facility] [place] Right: Wrist [employer] [id number] 10/18/2025 [id number] / / [id number] Azur 35 Detachable 5mm 11cm - [id number] Implanted:Qty: 1 on 03/19/2022 by Jose Devine MD at OR [facility] [place] Right: Wrist [employer] [id number] 06/19/2026 [id number] / / [id number] Mesh Flat Sheet 10x14 [id number] - [id number] Implanted:Qty: 1 on 12/11/2022 by Eros Dash MD at OR [facility] [place] N/A: Abdomen CR BARD : DAVOL [id number] 06/17/2027 [id number] / / [id number] documented as of this encounter Procedures Procedure Name Priority Date/Time Associated Diagnosis Comments CARDIOLOGY SCANNED RESULT 11/26/2023 documented in this encounter Results * CARDIOLOGY SCANNED RESULT (11/26/2023) 11/26/2023 Ulises Stevenson DO OTHER documented in this encounter Advance Directives Documents on File Type Date Recorded Patient Rehabilitation Caseworker Expl anation POLST 11/13/2020 POLST NASREEN SHAW [...] the patient have Health Care Power of Director Pharmacology? No Full Code 01/28/2022 11:14 AM 01/28/2022 4:47 PM Full Code 05/22/2021 12:38 PM 05/22/2021 5:48 PM This order reflects the patients wishes and were consensually agreed upon. Question Answer Comments Discussion of Advance Directives occurred with: Not Discussed Does the patient have a Living Will? No Does the patient have Health Care Power of Director Pharmacology? No Healthcare Agents on File Name Relationship Healthcare Agent [facility] p Communication Zhen Finley Spouse Health Care Agent Care Teams Transit Vehicle Inspector Relationship Specialty Start Date End Date Luis Fernando Rojas MD [address] [place] [address] PCP - General Family Medicine 09/23/16 documented as of this encounter
--- OUTSIDE RECORDS SUMMARY | 2024-01-09 10:06 | External Medical Summary | Summary of Care ---
Author Name Unknown Organization [facility] Address [address] [place] [address] Phone [phone] Care Team Providers Care Commercial Analyst Name Role Phone Heber Rojas MD Primary Care Provider [phone] Reason for Visit * Reason Onset Date Comments Advice 11/11/2023 Encounter Details Date Type Department Care Team (Late st Contact Info) Description 11/11/2023 Telephone NephrologyDella [address] [facility] [place] [address] Sameer Hassan MD [address] [facility] [place] [address] Advice Allergies Active Allergy Reactions Criticality Noted Date Comments Salvador Inhibitors Other (Please comment) High 0 HyperKalemia documented as of this encounter (statuses as of 11/11/2023) Medications Medication Sig Dispensed Refills Start Date [...] before dental procedure 4 Capsule 0 11/11/2023 Active Hospital, Clinic, or Other Facility Administered Medication Ordered Dose Route Frequency Start Date End Date Status vitamin b-12 (Cyanocobalamin) inj 1,000 mcgIndications:S/P gastric bypass 1000 mcg IM [id number] 10/15/2022 07/19/2025 Active vitamin b-12 (Cyanocobalamin) inj 1,000 mcgIndications:Morbid obesity with BMI of 40.0-44.9, adult (HCC),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 Magallanes. M-W-Briana from 07-25. 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 11/19/2018 10/08/2022 Morbid [...] T-tube placement 04/16/2017 05/29/2017 [employer] Other*[id number] 04/13/2013 08/27/2016 Overview: Study Title: Genomic Markers for Patients with Cardiovascular Disease Project # [id number] Exercise Science Internship: Siena Laws MD [phone] Hypertensive heart disease 03/25/2013 1 07/29/2016 Neuropathy, [...] of inactive term HTN, goal below 130/80 09/22 /2014 documented as of this encounter (statuses as of 11/11/2023) Immunizations Name Administration Dates Next Due COVID-19 [...] seen by Dr Hassan at dialysis unit [facility] RX [facility] will contact pt to inform of this Hope Requests copy of note faxed to [phone] Faxed with confirmation received Note faxed to [facility] for medication order With confirmation received * Telephone Encounter - Crystal Alfonso LPN - 11/11/2023 9:07 AM EDT Spoke with Hope at [facility] Pt is have a 2 step cleaning States this cleaning goes under gum so is not your typical cleaning Pt is on dialysis @ [facility] Is this OK for pt to proceed [...] procedure. Please reach out to them at ([phone]). documented in this encounter Plan of Treatment Upcoming Encounters Date Type Department Care Team ([facility] st Contact Info) Description 11/13/2023 9:40 AM EDT Office Visit Podiatry [facility] [address] [place] [address] Calli Avila, DPRenae [address] [place] [address] 12/30/2023 1:00 PM EDT Telemedicine Pharmacy, [place] [address] [facility] [place] [address] [facility] [address] [facility] [place] [address] 01/06/2024 3:00 PM EDT Office Visit Sleep Disorders Ctr [facility] [address] [facility] [facility] [place] [phone] Veena Rainey CRNP [address] [place] [address] 02/13/2024 10:40 AM EDT Telemedicine Nutrition & Weight Management, [facility] [address] [address] Katya Delaney RDN [address] [address] 04/27/2024 12:20 PM EDT Office Visit Nutrition & Weight Management, [facility] [address] [place] [address] Cleo Fonseca PA-C [address] [place] [address] Scheduled Procedures Name Priority Associated Diagnoses Date/Ti [...] this encounter Medical Devices Implanted Type Area Stain Applicator Device Identifier Shelf Expiration Date Model / Serial / Lot Coil Vortex 35 Pltinm [id number] - [id number] Implanted:Qty: 1 on 11/27/2021 by Sterling Cates MD at [place] [facility] Right: Upper Arm [employer] : NEURO INTR [id number] 08/15/2024 [id number] / / [id number] Coil Vortex 35 Pltinm [id number] - [id number] Implanted:Qty: 1 on 11/27/2021 by Sterling Cates MD at OR [facility] Right: Upper Arm [employer] : NEURO INTR [id number] 08/15/2024 [id number] / / [id number] Coil Vortex 35 Pltinm [id number] - [id number] Implanted:Qty: 1 on 11/27/2021 by Sterling Cates MD at OR [facility] Right: Upper Arm [employer] : NEURO INTR [id number] 08/15/2024 [id number] / / [id number] Coil Vortex 35 Pltinm [id number] - [id number] Implanted:Qty: 1 on 11/27/2021 by Sterling Cates MD at OR [facility] Right: Upper Arm [employer] : NEURO INTR [id number] 05/16/2024 [id number] / / [id number] Azur 35 Detachable 5mm 11cm - [id number] Implanted:Qty: 1 on 03/19/2022 by Jose Devine MD at OR [facility] Right: Wrist [employer] [id number] 10/18/2025 [id number] / / [id number] Azur 35 Detachable 5mm 11cm - [id number] Implanted:Qty: 1 on 03/19/2022 by Jose Devine MD at OR [facility] Right: Wrist [employer] [id number] 06/19/2026 [id number] / / [id number] Mesh Flat Sheet 10x14 [id number] - [id number] Implanted:Qty: 1 on 12/11/2022 by Eros Dash MD at OR [facility] N/A: Abdomen CR BARD : DAVOL [id number] 06/17/2027 [id number] / / [id number] documented as of this encounter Advance Directives Documents on File Type Date Recorded Patient Design Lead Expl anation POLST 11/13/2020 POLST PENNSYLVA VALERIA [...] the patient have Health Care Power of Solution Coordinator? No Full Code 01/28/2022 11:14 AM 01/28/2022 4:47 PM Full Code 05/22/2021 12:38 PM 05/22/2021 5:48 PM This order reflects the patients wishes and were consensually agreed upon. Question Answer Comments Discussion of Advance Directives occurred with: Not Discussed Does the patient have a Living Will? No Does the patient have Health Care Power of Solution Coordinator? No Healthcare Agents on File Name Relationship Healthcare Agent Relationshi p Communication Zhen Finley Spouse Health Care Agent Care Teams Commercial Analyst Relationship Specialty Start Date End Date Heber Rojas MD [address] [place] [address] PCP - General Family Medicine 09/23/16 documented as of this encounter
--- OUTSIDE RECORDS SUMMARY | 2024-01-09 10:06 | External Medical Summary | Summary of Care ---
Author Name Unknown Organization [facility] Address [address] [place] [address] Phone [phone] Care Team Providers Care Customer Care Voice Consultant Name Role Phone Luis Fernando Rojas MD Primary Care Provider [phone] Reason for Visit * Reason Onset Date Comments Advice 11/11/2023 Encounter Details Date Type Department Care Team (Late st Contact Info) Description 11/11/2023 Telephone NephrologyDella [address] [facility] [place] [address] Sameer Hassan MD [address] [place] [address] Advice Allergies Active Allergy Reactions Criticality Noted [...] 1,000 mcgIndications:S/P gastric bypass 1000 mcg IM [id number] 10/15/2022 07/19/2025 Active vitamin b-12 (Cyanocobalamin) inj 1,000 mcgIndications:Morbid obesity with BMI of 40.0-44.9, adult (HCC),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 [id number] 10/17/2023 12/11/19 25 Active documented as of [...] 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 10/15/2022 [facility] OTHER*[id number] 01/01/2022 S/P gastric bypass 01/01/2022 Marginal ulcer [...] Per Obesity protocol #1 BMI 40.0-44.9, adult 04/16/201706/05/ 018 Overview: Per Obesity protocol #1 Acute postoperative abdominal pain 04/16/2017 05/29/2017 History of knee surgery 04/16/201703/2017 History of cardiac catheterization 04/16/2017 05/29/2017 History of biliary T-tube placement 04/16/2017 05/29/2017 [employer] Other*[id number] 04/13/2013 08/27/2016 Overview: Study Title: Genomic Markers for Patients with Cardiovascular Disease Project # [id number] Snow Removing Supervisor: Siena Laws MD [phone] Hypertensive heart disease 03/25/2013 1 07/29/2016 Neuropathy, [...] encounter Miscellaneous Notes * Telephone Encounter - Crystal Alfonso LPN - 11/11/2023 10:37 AM EDT Hope is made aware Advised pt is a dialysis patient and is seen by Dr Hassan at dialysis unit [facility] RX [facility] will contact pt to inform of this Hope Requests copy of note faxed to [phone] Faxed with confirmation received Note faxed to [facility] for medication order With confirmation received * Telephone Encounter - Crystal Alfonso LPN - 11/11/2023 9:07 AM EDT Spoke with Hope at [facility] Pt is have a 2 step cleaning States this cleaning goes under gum so is not your typical cleaning Pt is on dialysis @ [facility] Is this OK for pt [...] procedure. Please reach out to them at ([phone]). documented in this encounter Plan of Treatment Upcoming Encounters Date Type Department Care Team (Late st Contact Info) Description 11/11/2023 2:30 PM EDT Telemedicine Pharmacy, [place] [address] [place] [address] [facility] [address] [place] [address] 11/13/2023 9:40 AM EDT Office Visit Podiatry [facility] [address] [address] Calli Avila DPM [address] [address] 01/06/2024 3:00 PM EDT Office Visit Sleep Disorders Ctr [facility] [address] [address] Veena Rainey CRNP [address] [place] [address] 02/13/2024 10:40 AM EDT Telemedicine Nutrition & Weight Management, [facility] [address] [place] [address] Katya Delaney RDN [address] [place] [address] 04/27/2024 12:20 PM EDT Office Visit Nutrition & Weight Management, [facility] [address] [place] [address] Cleo Fonseca PA-C [address] [place] [address] Scheduled Procedures Name Priority Associated Diagnoses Date/Ti [...] this encounter Medical Devices Implanted Type Area Factory Maintenance Technician Device Identifier Shelf Expiration Date Model / Serial / Lot Coil Vortex 35 Pltinm [id number] - [id number] Implanted:Qty: 1 on 11/27/2021 by Sterling Cates MD at [place] [facility] Right: Upper Arm [employer] : NEURO INTR [id number] 08/15/2024 [id number] Coil Vortex 35 Pltinm 841630 - [id number] Implanted:Qty: 1 on 11/27/2021 by Sterling Cates MD at [place] [facility] Right: Upper Arm [employer] : NEURO INTR [id number] 08/15/2024 [id number] / [id number] Coil Vortex 35 Pltinm [id number] - [id number] Implanted:Qty: 1 on 11/27/2021 by Sterling Cates MD at [place] [facility] Right: Upper Arm [employer] : NEURO INTR [id number] 08/15/2024 [id number] Coil Vortex 35 Pltinm [id number] - [id number] Implanted:Qty: 1 on 11/27/2021 by Sterling Cates MD at [place] [facility] Right: Upper Arm [employer] : NEURO INTR [id number] 05/16/2024 [id number] / [id number] Azur 35 Detachable 5mm 11cm - [id number] Implanted:Qty: 1 on 03/19/2022 by Jose Devine MD at [place] [facility] Right: Wrist [employer] [id number] 10/18/2025 [id number] / / [id number] Azur 35 Detachable 5mm 11cm - [id number] Implanted:Qty: 1 on 03/19/2022 by Jose Devine MD at [place] [facility] Right: Wrist [employer] [id number] 06/19/2026 [id number] / / [id number] Mesh Flat Sheet 10x14 [id number] - [id number] Implanted:Qty: 1 on 12/11/2022 by Eros Dash MD at [place] [facility] N/A: Abdomen CR BARD : DAVOL [id number] 06/17/2027 [id number] / / [id number] documented as of this encounter Advance Directives Documents on File Type Date Recorded Patient Rubber Engraver Expl anation POLST 11/13/2020 POLST PENNSYLVA VALERIA [...] the patient have Health Care Power of Employment Agency Manager? No Full Code 01/28/2022 11:14 AM 01/28/2022 4:47 PM Full Code 05/22/2021 12:38 PM 05/22/2021 5:48 PM This order reflects the patients wishes and were consensually agreed upon. Question Answer Comments Discussion of Advance Directives occurred with: Not Discussed Does the patient have a Living Will? No Does the patient have Health Care Power of Employment Agency Manager? No Healthcare Agents on File Name Relationship Healthcare Agent [facility] p Communication Zhen Finley Spouse Health Care Agent Care Teams Customer Care Voice Consultant Relationship Specialty Start Date End Date Luis Fernando Rojas MD [address], [place] [id number] PCP - General Family Medicine 09/23/16 documented as of this encounter
--- OUTSIDE RECORDS SUMMARY | 2024-01-09 10:06 | External Medical Summary | Summary of Care ---
Author Name Unknown Organization [facility] Address [address] [place] [address] Phone [phone] Care Team Providers Care Aligner Name Role Phone Luis Fernando Rojas MD Primary Care Provider [phone] Reason for Visit * Reason Comments Dosage Adjustment In Person (Anticoag Cl inic) Diabetes Follow-Up Encounter Details Date Type Department Care Team (Late st Contact Info) Description 11/11/2023 2:30 PM EDT Telemedicine Pharmacy, [place] [address] [place] [address] [facility] [address] [place] [address] Type 2 diabetes mellitus with hemoglobin A1c goal of less than 7.0% ([facility])* Allergies Active Allergy Reactions Criticality Noted Date [...] dialysis, with long-term current use of insulin ([facility]) Take 1 Tab by mouth at bedtime. 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 [id number] 10/17/2023 12/11/19 25 Active documented as of [...] 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 10/15/2022 [facility] OTHER*[id number] 01/01/2022 S/P gastric bypass 01/01/2022 Marginal ulcer [...] T-tube placement 04/16/2017 05/29/2017 [employer] Other*[id number] 04/13/2013 08/27/2016 Overview: Study Title: Genomic Markers for Patients with Cardiovascular Disease Project # [id number] Orchestra Teacher: Siena Laws MD [phone] Hypertensive heart disease 03/25/2013 1 07/29/2016 Neuropathy, [...] as of this encounter Progress Notes * [place] Langston, [facility] - 11/11/2023 2:37 PM EDT Images from the original note were not included. Patient location: HOME. I was in a hospital or clinic location. After connecting through televideo,patient was verified with two unique identifiers. Patient (or authorized legal outreach representative) was then informed that this was a Telemedicine visit and being conducted confidentially over secure lines. Methods to assure confidentiality were taken. Patient acknowledged consent and understanding of pr ivacy and security of the Telemedicine visit. The patient agreed to participate. Medication Therapy Disease Management Clinic - Diabetes Management Progress Note Candi Finley, identified by name and date of , is a 62 year old female being seen for diabetes management/education. Patient presents for return diabetic visit. DIABETES: Current diabetic medications: DEC Lantus 16 units daily [will be replaced by BASAGLAR] ADJ Novolog 14-4-16 with respective meals + CF 1:25 over 150 [see chart provided at bottom of note from 10/14/23] - max dose of 45 units per day [will be replaced by HUMALOG] START Ozempic 0.25 mg once weekly x 4 weeks, then increase to 0.5 mg once weekly thereafter. Medication Injection Site: Abdomen Lifestyle: Diet: working to improve Glucose Review/SMBG: Readings obtained from patient device Hypoglycemia: Does your blood sugar go below 70 mg/dL? No Hyperglycemia symptoms present: none Recent Labs Units 12/12/22 0718 07/01/22 0910 HEMOGLOBIN A1C - [facility] % 7.8* 6.9* Recent Labs Units 12/19/22 0756 12/18/22 0709 12/17/22 0659 ESTIMATED GLOMERULAR FILTRATION RATE - [facility] mL/min 11* 8* 11* CREATININE - [facility] mg/dL 4.4* 5.9* 4.3* HYPERTENSION: Patient on ACEi/ARB: no, intolerant BP Readings from Last 3 Encounters: 08/05/23 132/80 06/24/23 136/60 06/17/23 126/80 Blood pressure at goal: yes HYPERLIPIDEMIA: Patient is taking moderate or high intensity statin: yes HEALTH MAINTENANCE REVIEW: Health Maintenance Due Topic Date Due Pneumococcal Vaccine: Pediatrics (0 to 5 Years) and At-Risk Patients (6 to 64 Years) (3 of 3 - PCV)08/30/2015 Diabetic Eye Exam 12/13/2022 TSH 01/23/2023 HbA1c 06/14/2023 Diabetic Foot Exam 10/16/2023 ASSESSMENT & PLAN: ICD-10-CM 1. Type 2 diabetes mellitus with hemoglobin A1c goal of less than 7.0% (HCC) E11.9 Considerations: - dialysis MWF --> Tues/Thurs appts preferred BG Readings - Blood sugars uncontrolled. Continues to have the same trends as at previous visits- steep decline overnight, rising with each meal. Medications - Reviewed current regimen, patient is adherent to regimen. Taking her novolog AFTER eating. Discussed about taking it before. Will also adjust doses. She is so far tolerating ozempic well. Will decrease basal insulin and adjust bolus insulin. New chart sent to [facility] mail [facility] Diet, Exercise, Lifestyle - best efforts encouraged . Discussed with patient about trying to keep carb amounts lower. Patient is agreeable to SMBG freestyle jennifer daily. Patient aware to contact clinic if any hypoglycemia before next visit. MEDICATION CHANGES: Diabetic Medications: DEC Lantus 14 units daily [will be replaced by BASAGLAR] ADJ Novolog 17-5-18 with respective meals + CF 1:20 over 150 [see chart provided at bottom of note from 11/11/23] - max dose of 45 units per day [will be replaced by HUMALOG] Ozempic 0.25 mg once weekly x 2 weeks, then increase to 0.5 mg once weekly thereafter. FOLLOW UP: Return to clinic in 6 weeks 12/30/2023 Vera Langston [facility] Clinical Pharmacist - Non Profit Director Medication Therapy Management Clinic 11/11/2023, 2:37 PM 11/11/23 Fast Acting Insulin: Novolog (or humalog) To find insulin dose: 1) Find the ROW in which pre-meal blood sugar is in (on LEFT of chart) 2) Find COLUMN which represents which meal you are eating 3) Go across row from step 1 and go down column from step 2 4) Where the row and column cross - that is the dose of fast acting insulin Blood Sugar levels Am meal Lunch PM Meal No Food 70 to 109 15 3 16 0 110 to 129 16 4 17 0 130 to 149 17 5 18 0 150 to 169 17 5 18 0 170 to 189 18 6 19 1 190 to 209 19 7 20 2 210 to 229 20 8 21 3 230 to 249 21 9 22 4 250 to 269 22 10 23 5 270 to 289 23 11 24 6 290 to 309 24 12 25 7 310 to 329 25 13 26 8 330 to 349 26 14 27 9 350 to 369 27 15 28 10 370 to 389 28 16 29 11 390 to 409 29 17 30 12 410 to 429 30 18 31 13 430 to 449 31 19 32 14 450 to 469 32 20 33 15 470 to 489 33 21 34 16 490 to 509 34 22 35 17 510 to 529 35 23 36 18 530 to 549 36 24 37 19 550 to 569 37 25 38 20 Parameters fixed 17 5 18 anamika 20 over 150 documented in this encounter Plan of Treatment Upcoming Encounters Date Type Department Care Team (Late st Contact Info) Description 11/13/2023 9:40 AM EDT Office Visit Podiatry [facility] [address] [facility] [place] [address] Calli Avila DPM [address] [place] [address] 12/30/2023 1:00 PM EDT Telemedicine Pharmacy, [address] [address] 01/06/2024 3:00 PM EDT Office Visit Sleep Disorders Ctr [facility] [address] [facility] [place] [phone] Veena Rainey CRNP [address] [facility] [place] [address] 02/13/2024 10:40 AM EDT Telemedicine Nutrition & Weight Management, [facility] [address] [facility] [place] [address] Katya Delaney RDN [address] [facility] [place] [address] 04/27/2024 12:20 PM EDT Office Visit Nutrition & Weight Management, [facility] [address] [place] [address] Cleo Fonseca PA-C [address] [place] [address] Scheduled Procedures Name Priority Associated Diagnoses Date/Ti [...] this encounter Medical Devices Implanted Type Area Data Entry Processor Device Identifier Shelf Expiration Date Model / Serial / Lot Coil Vortex 35 Pltinm [id number] - [id number] Implanted:Qty: 1 on 11/27/2021 by Sterling Cates MD [place] [facility] [place] Right: Upper Arm [employer] : NEURO INTR [id number] 08/15/2024 [id number] / / [id number] Coil Vortex 35 Pltinm [id number] - [id number] Implanted:Qty: 1 on 11/27/2021 by Sterling Cates MD at [place] [facility] [place] Right: Upper Arm [employer] : NEURO INTR [id number] 08/15/2024 [id number] / / [id number] Coil Vortex 35 Pltinm [id number] - [id number] Implanted:Qty: 1 on 11/27/2021 by Sterling Cates MD at [place] [facility] [place] Right: Upper Arm [employer] : NEURO INTR [id number] 08/15/2024 [id number] / [id number] Coil Vortex 35 Pltinm [id number] - [id number] Implanted:Qty: 1 on 11/27/2021 by Sterling Cates MD at [place] [facility] [place] Right: Upper Arm [employer] : NEURO INTR [id number] 05/16/2024 [id number] Azur 35 Detachable 5mm 11cm - [id number] Implanted:Qty: 1 on 03/19/2022 by Jose Devine MD at [place] [facility] [place] Right: Wrist [employer] [id number] 10/18/2025 [id number] / / [id number] Azur 35 Detachable 5mm 11cm - [id number] Implanted:Qty: 1 on 03/19/2022 by Jose Devine MD at [place] [facility] [place] Right: Wrist [employer]out [employer] [id number] 06/19/2026 [id number] / / [id number] Mesh Flat Sheet 10x14 [id number] - [id number] Implanted:Qty: 1 on 12/11/2022 by Eros Dash MD at [place] [facility] [place] N/A: Abdomen CR BARD : DAVOL [id number] 06/17/2027 [id number] / / [id number] documented as of this encounter Visit Diagnoses Diagnosis Type 2 diabetes mellitus with hemoglobin A1c goal of less than 7.0% (HCC)- Primary documented in this encounter Advance Directives Documents on File Type Date Recorded Patient Gourmet Coffee Attendant Expl anation POLST 11/13/2020 POLST PENNSYLVA [...] the patient have Health Care Power of Web Engineer? No Full Code 01/28/2022 11:14 AM 01/28/2022 4:47 PM Full Code 05/22/2021 12:38 PM 05/22/2021 5:48 PM This order reflects the patients wishes and were consensually agreed upon. Question Answer Comments Discussion of Advance Directives occurred with: Not Discussed Does the patient have a Living Will? No Does the patient have Health Care Power of Web Engineer? No Healthcare Agents on File Name Relationship [facility] Communication Zhen Finley Spouse Health Care Agent Care Teams Aligner Relationship Specialty Start Date End Date Luis Fernando Rojas MD [address] [place] [address] PCP - General Family Medicine 09/23/16 documented as of this encounter
--- OUTSIDE RECORDS SUMMARY | 2024-01-09 10:06 | External Medical Summary | Summary of Care ---
Author Name Unknown Organization [facility] Address [address] [place] [address] Phone [phone] Care Team Providers Care Screen Writer Name Role Phone Luis Fernando Rojas MD Primary Care Provider [phone] Encounter Details Date Type Department Care Team (Late st Contact Info) Description 11/05/2023 Patient Reported Data Patient Survey Ortho OBERD Allergies Active Allergy Reactions Criticality Noted Date Comments Salvador Inhibitors Other (Please comment) High 0 HyperKalemia documented as of this encounter (statuses as of 11/05/2023) Medications Medication Sig Dispensed Refills Start Date [...] directed. 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 Magallanes. M-W-Briana from [...] as of this encounter (statuses as of 11/05/2023) Resolved Problems Problem Noted Date Diagnosed Date [...] 10/08/2022 Insulin long-term use 11/19/20182018 Overview: Duplicate alf (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 insulin 11/19/2018 10/08/2022 Morbid [...] T-tube placement 04/16/2017 05/29/2017 [employer] Other*[id number] 04/13/2013 08/27/2016 Overview: Study Title: Genomic Markers for Patients with Cardiovascular Disease Project # [id number] Deputy County Clerk: Siena Laws MD [phone] Hypertensive heart disease 03/25/2013 1 07/29/2016 Neuropathy, [...] as of this encounter (statuses as of 11/05/2023) Immunizations Name Administration Dates Next Due COVID-19 [...] Care Team (Late st Contact Info) Description 11/07/2023 10:40 AM EDT Telemedicine Nutrition & Weight Management, [facility] [address] [address] Katya Delaney RDN [address] [place] [address] 11/11/2023 2:30 PM EDT [facility]medicine Pharmacy, [place] [address] [facility] [address] [facility] [address] [facility] [place] [address] 11/13/2023 9:40 AM EDT Office Visit Podiatry [facility] [address] [place] [address] Calli Avila, DAIANA [address] [place] [address] 01/06/2024 3:00 PM EDT Office Visit Sleep Disorders Ctr [facility] [address] [place] [phone] Veena Rainey CRNP [address] [place] [address] 04/27/2024 12:20 PM EDT Office Visit Nutrition & Weight Management, [facility] [address] [place] [address] Cleo Fonseca PA-C [address] [place] [address] Scheduled Procedures Name Priority Associated Diagnoses Date/Ti [...] this encounter Medical Devices Implanted Type Area Bingo Floater Device Identifier Shelf Expiration Date Model / Serial / Lot Coil Vortex 35 Pltinm [id number] - [id number] Implanted:Qty: 1 on 11/27/2021 by Sterling Cates MD at [place] [facility] Right: Upper Arm [employer] : NEURO INTR [id number] 08/15/2024 [id number] Coil Vortex 35 Pltinm [id number] - [id number] Implanted:Qty: 1 on 11/27/2021 by Sterling Cates MD at [place] [facility] Right: Upper Arm [employer] : NEURO INTR [id number] 08/15/2024 [id number] Coil Vortex 35 Pltinm [id number] - [id number] Implanted:Qty: 1 on 11/27/2021 by Sterling Cates MD at [place] [facility] Right: Upper Arm [employer] : NEURO INTR [id number] 08/15/2024 [id number] / / [id number] Coil Vortex 35 Pltinm [id number] - [id number] Implanted:Qty: 1 on 11/27/2021 by Sterling Cates MD at [place] [facility] Right: Upper Arm [employer] : NEURO INTR [id number] 05/16/2024 [id number] / / [id number] Azur 35 Detachable 5mm 11cm - [id number] Implanted:Qty: 1 on 03/19/2022 by Jose Devine MD at [place] [facility] Right: Wrist [employer] [id number] 10/18/2025 [id number] / / [id number] Azur 35 Detachable 5mm 11cm - [id number] Implanted:Qty: 1 on 03/19/2022 by Jose Devine MD at OR [facility] Right: Wrist [employer] [id number] 06/19/2026 [id number] / / [id number] Mesh Flat Sheet 10x14 [id number] - [id number] Implanted:Qty: 1 on 12/11/2022 by Eros Dash MD at [place] [facility] N/A: Abdomen CR BARD : DAVOL [id number] 06/17/2027 [id number] / / [id number] documented as of this encounter Advance Directives Documents on File Type Date Recorded Patient Maintenance Fitter Expl anation POLST 11/13/2020 POLST PENNSYLVA VALERIA [...] the patient have Health Care Power of Antenna Rigger? No Full Code 01/28/2022 11:14 AM 01/28/2022 4:47 PM Full Code 05/22/2021 12:38 PM 05/22/2021 5:48 PM This order reflects the patients wishes and were consensually agreed upon. Question Answer Comments Discussion of Advance Directives occurred with: Not Discussed Does the patient have a Living Will? No Does the patient have Health Care Power of Antenna Rigger? No Healthcare Agents on File Name Relationship Healthcare Agent [facility] Communication Zhen Finley Spouse Health Care Agent Care Teams Screen Writer Relationship Specialty Start Date End Date Luis Fernando Rojas MD [address], [place] [phone] PCP - General Family Medicine 09/23/16 documented as of this encounter
--- OUTSIDE RECORDS SUMMARY | 2024-01-09 10:06 | External Medical Summary | Summary of Care ---
Author Name Unknown Organization [facility] Address [address] [place] [address] Phone [phone] Care Team Providers Care Electrical Research Engineer Name Role Phone Luis Fernando Rojas MD Primary Care Provider [phone] Reason for Visit * Reason Onset Date Comments Advice 11/11/2023 Encounter Details Date Type Department Care Team (Late st Contact Info) Description 11/11/2023 Telephone NephrologyDella [address] [facility] [place] [address] Sameer Hassan MD [address] [facility] [place] [address] Advice Allergies Active Allergy Reactions Criticality Noted Date Comments Slavador Inhibitors Other (Please comment) High 0 HyperKalemia [...] 1,000 mcgIndications:S/P gastric bypass 1000 mcg IM [id number] 10/15/2022 07/19/2025 Active vitamin b-12 (Cyanocobalamin) inj 1,000 mcgIndications:Morbid obesity with BMI of 40.0-44.9, adult (HCC),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 [id number] 10/17/2023 12/11/19 25 Active documented as of [...] 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 10/15/2022 MORFIN RESEARCH OTHER*[id number] 01/01/2022 S/P gastric bypass 01/01/2022 Marginal ulcer [...] 10/08/2022 Insulin long-term use 11/19/20182018 Overview: Duplicate [facility] (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 insulin 11/19/2018 10/08/2022 Morbid [...] T-tube placement 04/16/2017 05/29/2017 [employer] Other*[id number] 04/13/2013 08/27/2016 Overview: Study Title: Genomic Markers for Patients with Cardiovascular Disease Project # [id number] Balance Wheel Arm Burnisher: Siena Laws MD [phone] Hypertensive heart disease 03/25/2013 1 07/29/2016 Neuropathy, [...] seen by Dr Hassan at dialysis unit [facility] will contact pt to inform of this Hope Requests copy of note faxed to [phone] Faxed with confirmation received Note faxed to [facility] for medication order With confirmation received * Telephone Encounter - Crystal Alfonso LPN - 11/11/2023 9:07 AM EDT Spoke with Hope at [facility] Pt is have a 2 step cleaning States this cleaning goes under gum so is not your typical cleaning Pt [facility] Is this OK for pt to [...] procedure. Please reach out to them at ([phone]). documented in this encounter Plan of Treatment Upcoming Encounters Date Type Department Care Team (Late st Contact Info) Description 11/11/2023 2:30 PM EDT Telemedicine Pharmacy, [place] [address] [place] [address] [facility] [address] [place] [address] 11/13/2023 9:40 AM EDT Office Visit Podiatry [facility] [address] [address] Calli Avila DPM [address] [place] [address] 01/06/2024 3:00 PM EDT Office Visit Sleep Disorders Ctr [facility] [address] [phone] Veena Rainey CRNP [address] [place] [address] 02/13/2024 10:40 AM EDT Telemedicine Nutrition & Weight Management, [facility] [address] [place] [address] Katya Delaney RDN [address] [place] [address] 04/27/2024 12:20 PM EDT Office Visit Nutrition & Weight Management, [facility] [address] [place] [address] Cleo Fonseca PA-C [address] [place] [address] Scheduled Procedures Name Priority Associated Diagnoses Date/Ti [...] this encounter Medical Devices Implanted Type Area Student Life Advisor Device Identifier Shelf Expiration Date Model / Serial / Lot Coil Vortex 35 Pltinm [id number] - [id number] Implanted:Qty: 1 on 11/27/2021 by Sterling Cates MD [place] [facility] [place]: Upper Arm [employer] : NEURO INTR [id number] 08/15/2024 [id number] Coil Vortex 35 Pltinm [id number] - [id number] Implanted:Qty: 1 on 11/27/2021 by Sterling Cates MD [place] [facility] [place]: Upper Arm [employer] : NEURO INTR [id number] 08/15/2024 [id number] / [id number] Coil Vortex 35 Pltinm [id number] - [id number] Implanted:Qty: 1 on 11/27/2021 by Sterling Cates MD [place] [facility] [place]: Upper Arm [employer] : NEURO INTR [id number] 08/15/2024 [id number] Coil Vortex 35 Pltinm [id number] - [id number] Implanted:Qty: 1 on 11/27/2021 by Sterling Cates MD [place] [facility] Right: Upper Arm [employer] : NEURO INTR [id number] 05/16/2024 [id number] / [id number] Azur 35 Detachable 5mm 11cm - [id number] Implanted:Qty: 1 on 03/19/2022 by Jose Devine MD [place] [facility] Right: Wrist [employer] [id number] 10/18/2025 [id number] / / [id number] Azur 35 Detachable 5mm 11cm - [id number] Implanted:Qty: 1 on 03/19/2022 by Jose Devine MD at [place] [facility] Right: Wrist [employer] [id number] 06/19/2026 [id number] / / [id number] Mesh Flat Sheet 10x14 [id number] - [id number] Implanted:Qty: 1 on 12/11/2022 by Eros Dash MD at [place] [facility] N/A: Abdomen CR BARD : DAVOL [id number] 06/17/2027 [id number] / / [id number] documented as of this encounter Advance Directives Documents on File Type Date Recorded Patient Wheelchair Rental Clerk Expl anation POLST 11/13/2020 POLST PENNSYLVA VALERIA [...] the patient have Health Care Power of Test Lead? No Full Code 01/28/2022 11:14 AM 01/28/2022 4:47 PM Full Code 05/22/2021 12:38 PM 05/22/2021 5:48 PM This order reflects the patients wishes and were consensually agreed upon. Question Answer Comments Discussion of Advance Directives occurred with: Not Discussed Does the patient have a Living Will? No Does the patient have Health Care Power of Test Lead? No Healthcare Agents on File Name Relationship Healthcare Agent [facility] p Communication Zhen Finley Spouse Health Care Agent Care Teams Electrical Research Engineer Relationship Specialty Start Date End Date Luis Fernando Rojas MD [address], [place] [phone] PCP - General Family Medicine 09/23/16 documented as of this encounter
--- OUTSIDE RECORDS SUMMARY | 2024-01-09 10:06 | External Medical Summary | Summary of Care ---
Author Name Unknown Organization [facility] Address [address] [place] [address] Phone [phone] Care Team Providers Care Diplomatic Interpreter Name Role Phone Luis Fernando Rojas MD Primary Care Provider [phone] Encounter Details Date Type Department Care Team (Latest Contact Info) Description 11/07/2023 10:40 AM EDT Telemedicine Nutrition & Weight Management, [facility] [address] [place] [address] Katya Delaney RDN [address] [facility] [place] [address] Type 2 diabetes mellitus with hemoglobin A1c goal of less than 7.0% ([facility])*; Intestinal postoperative nonabsorption; ESRD (end stage renal disease) on dialysis ([facility]); Class 3 severe obesity due to excess calories with serious comorbidity and body mass index (BMI) of 40.0 to 44.9 in adult ([facility]) Allergies Active Allergy Reactions Criticality Noted Date Comments Salvador Inhibitors Other (Please comment) High 0 HyperKalemia documented as of this encounter (statuses as of 11/07/2023) Medications Medication Sig Dispensed Refills Start Date [...] directed. Replace every 14 days (supplied through [facility]) 7 Each 3 05/17/2021 Active CPAP every [...] hemoglobin A1c goal of less than 7.0% ([facility]) Inject 14 units with breakfast, [...] 1,000 mcgIndications:S/P gastric bypass 1000 mcg IM [id number] 10/15/2022 07/19/2025 Active vitamin b-12 (Cyanocobalamin) inj 1,000 mcgIndications:Morbid obesity with BMI of 40.0-44.9, adult ([facility]),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 [id number] 10/17/2023 12/11/19 25 Active documented as of this encounter (statuses as of 11/07/2023) Active Problems Problem Noted Date Diagnosed Date [...] 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 10/15/2022 MORFIN RESEARCH OTHER*[id number] 01/01/2022 S/P gastric bypass 01/01/2022 Marginal ulcer [...] on dialysis 03/14 Last Assessment & Plan: Juv Acessóriospriteshius dialysis since January, Dr. Magallanes. M-W-Briana from [...] as of this encounter (statuses as of 11/07/2023) Resolved Problems Problem Noted Date Diagnosed Date [...] T-tube placement 04/16/2017 05/29/2017 [employer] Other*[id number] 04/13/2013 08/27/2016 Overview: Study Title: Genomic Markers for Patients with Cardiovascular Disease Project # [id number] Jewel Waxer: Siena Laws MD [phone] Hypertensive heart disease 03/25/2013 1 07/29/2016 Neuropathy, [...] as of this encounter (statuses as of 11/07/2023) Immunizations Name Administration Dates Next Due COVID-19 [...] as of this encounter Progress Notes * Katya Delaney RDN - 11/07/2023 10:40 AM EDT Nutrition & Weight Management / Bariatric Surgery Nutrition Post-Operative Follow-up Name: Candi Finley Location: NUTRITION & WEIGHT MANAGEMENT, [facility], [facility] Date: 11/07/2023 Time: 8:49 AM Patient was identified at visit by name and date. Patient location: HOME. I was in a hospital or clinic location. After connecting through [employer],patient was verified with two unique identifiers. Patient (or authorized legal insurance account representative) was then informed that this was a Telemedicine visit and being conducted confidentially over secure lines. Methods to assure confidentiality were taken. Patient acknowledged consent and understanding of pr ivacy and security of the Telemedicine visit. The patient agreed to participate. Surgery: s/p Laparoscopic revision gastrojejunal anastomosis with reconstruction with vagotomy 2/2 marginal ulcer/bleeding on 01/28/22 - H/o laparoscopic Gastric Bypass by Dr. Polanco on April 16, 2017. - H/o hernia repair on 04/25/17. - History of ESRD on HD since 01/2021 - Weight at the initial clinic visit 295 lbs - Weight at the time of the revision 243 lbs Weight today: 243 lbs Weight at last visit: 240 lbs Date: 10/17/23 Weight Changes from previous visit: +3 lbs Total weight loss since surgery: 0 lbs Total weight loss using initial weight: -52 lbs Wt Readings from Last 10 Encounters: 08/05/23 109.8 kg (242 lb) 06/24/23 109.7 kg (241 lb 12 oz) 06/17/23 107.8 kg (237 lb 9.6 oz) 05/13/23 108 kg (238 lb) 04/17/23 107.1 kg (236 lb 3.2 oz) 02/25/23 112.3 kg (247 lb 9.6 oz) 01/02/23 110.7 kg (244 lb) 12/11/22 110.8 kg (244 lb 4.8 oz) 11/28/22 110.7 kg (244 lb) 11/27/22 107.2 kg (236 lb 4.8 oz) 11/07/23 -first visit with RD since 02/28/22 -pt was never technically advanced to stage [address], last visit with RD was 1 m post op -At dialysis during visit -Challenges: still dealing with emotional eating issues, not planning and goal setting, had a PTSD meltdown yesterday -Going through PT right now, and dealing with some dental issues -Looking for a health polo coach through [facility] Gold -Going well eating things high in fat or sugar does have a reaction, has been making better choices, staying away from sweets -Just started ozempic .25 mg no SE's noted -Does not see dialysis RD often 10/17/2023 -annual follow up -weight is stable 240 -dialysis MWF -sugars have been good -had been on ozempic in the past + diarrhea quite a bit; a lot of gas -fell last year-- also had hernia repair 08/20/22 -6 months post op -notes some nausea on the day of dialysis 06/18/22 -seen by surgery team -d/c cytotec and carafate, decrease PPI from BID to daily 03/28/22 -2 month post op Admitted with ANASTASIIA at [facility] - going home today Dialysis 3 days a week Food intolerances: Sugar, fat N/V: No Dumping syndrome: With higher fat and sugar intake Bowel patterns/Constipation/Diarrhea: Dealing with a lot of diarrhea, not daily can experience 3 days a week, suspect it is related to diet intake Lightheadedness/Dizziness upon standing: can have most likely because of dialysis Other issues: Exercise: Sedentary, had a fall last spring and has been tough recovering from that Describes typical diet history/24 hr recall Breakfast: Egg sandwich with cheese on 647 bread Snacks: banana Lunch: never the same, usually leftovers Snacks: Not usually Dinner: protein, trying not to have starches, veg or fruit Snacks: Popcorn or small bag of chips or Atkins bars fruit Drinks: water or occasional diet soda, iced tea with no sugar Alcohol: No Restaurant meals: twice a week Protein intake (goal at least 60 gm/day): "not enough" still a challenge even with dialysis Fluid intake (goal 64 oz/day): 48 oz (on a fluid restriction) MVI: Equate child chew BID Calcium: Calcium Vitamin D: taking B12: Not getting, has order advised on nurse visit Other supplements: PES: Impaired nutrient utilization related to bariatric surgery as evidenced by need for specialized diet guidelines and vitamin supplementation. Assessed needs per bariatric surgery protocol: Pt working to get back on track with diet and goal planning, feeling a bit discouraged with some health issues right now and lack of wt loss after revision. Will be calling [employer] to start working with a health polo coach again, used this service in the past and found it very helpful. Plan: 1. Continue Stage 4 diet. 2. Continue supplementation as prescribed 3. Continue Vitamin B-12 injections every three months. 4. Increase exercise - work for regular routine of 30-60 min most days per week. 5. Return to clinic in 3 months - Patient advised to use [employer] portal to send any follow up questions. Time spent: 30 Katya Delaney RDN documented in this encounter Plan of Treatment Upcoming Encounters Date Type Department Care Team (Late st Contact Info) Description 11/11/2023 2:30 PM EDT Telemedicine Pharmacy, [address] [address] [facility] [place] [address] 11/13/2023 9:40 AM EDT Office Visit Podiatry [facility] [address] [address] Calli Avila DPM [address] [place] [address] 01/06/2024 3:00 PM EDT Office Visit Sleep Disorders Ctr [facility] [address] [phone] Veena Rainey CRNP [address] [place] [address] 04/27/2024 12:20 PM EDT Office Visit Nutrition & Weight Management, [facility] [address] [place] [address] Cleo Fonseca PA-C [address] [place] [address] Scheduled Procedures Name Priority Associated Diagnoses Date/Ti [...] this encounter Medical Devices Implanted Type Area Steel Unloader Device Identifier Shelf Expiration Date Model / Serial / Lot Coil Vortex 35 Pltinm [id number] - [id number] Implanted:Qty: 1 on 11/27/2021 by Sterling Cates MD [place] [facility] [place] Right: Upper Arm [employer] : NEURO INTR [id number] 08/15/2024 [id number] / / [id number] Coil Vortex 35 Pltinm 123686 - [id number] Implanted:Qty: 1 on 11/27/2021 by Sterling Cates MD at [place] [facility] [place] Right: Upper Arm [employer] : NEURO INTR [id number] 08/15/2024 [id number] / / [id number] Coil Vortex 35 Pltinm 092652 - [id number] Implanted:Qty: 1 on 11/27/2021 by Sterling Cates MD at [place] [facility] [place] Right: Upper Arm [employer] : NEURO INTR [id number] 08/15/2024 [id number] / / [id number] Coil Vortex 35 Pltinm [id number] - [id number] Implanted:Qty: 1 on 11/27/2021 by Sterling Cates MD at [place] [facility] [place] Right: Upper Arm [employer] : NEURO INTR [id number] 05/16/2024 [id number] / / [id number] Azur 35 Detachable 5mm 11cm - [id number] Implanted:Qty: 1 on 03/19/2022 by Jose Devine MD at [place] [facility] [place] Right: Wrist [employer] [id number] 10/18/2025 [id number] / / [id number] Azur 35 Detachable 5mm 11cm - [id number] Implanted:Qty: 1 on 03/19/2022 by Jose Devine MD at [place] [facility] [place] Right: Wrist [employer] [id number] 06/19/2026 [id number] / / [id number] Mesh Flat Sheet 10x14 [id number] - [id number] Implanted:Qty: 1 on 12/11/2022 by Eros Dash MD at [place] [facility] [place] N/A: Abdomen CR BARD : DAVOL [id number] 06/17/2027 [id number] / / [id number] documented as of this encounter Visit Diagnoses Diagnosis Type 2 diabetes mellitus with hemoglobin A1c goal of less than 7.0% (HCC)- Primary Intestinal postoperative nonabsorption Other and unspecified postsurgical nonabsorption ESRD (end stage renal disease) on dialysis ([facility]) End stage renal disease Class 3 severe obesity due to excess calories with serious comorbidity and body mass index (BMI) of 40.0 to 44.9 in adult ([facility]) documented in this encounter Advance Directives Documents on File Type Date Recorded Patient Camera Repairman Expl anation HENRY 11/13/2020 HENRY SHAW ORDERS FOR LIFE-SUSTAINING TREATMENT Latest Code [...] the patient have Health Care Power of Marble Supervisor? No Full Code 01/28/2022 11:14 AM 01/28/2022 4:47 PM Full Code 05/22/2021 12:38 PM 05/22/2021 5:48 PM This order reflects the patients wishes and were consensually agreed upon. Question Answer Comments Discussion of Advance Directives occurred with: Not Discussed Does the patient have a Living Will? No Does the patient have Health Care Power of Marble Supervisor? No Healthcare Agents on File Name Relationship Healthcare Agent Relationshi p Communication Zhen Finley Spouse Health Care Agent Care Teams Diplomatic Interpreter Relationship Specialty Start Date End Date Luis Fernando Rojas MD [address] [place] [address] PCP - General Family Medicine 09/23/16 documented as of this encounter
--- OUTSIDE RECORDS SUMMARY | 2024-01-09 10:07 | External Medical Summary | Summary of Care ---
Author Name Unknown Organization [facility] Address [address] [place] [address] Phone [phone] Care Team Providers Care Personnel Counselor Name Role Phone Luis Fernando Rojas MD Primary Care Provider [phone] Encounter Details Date Type Department Care Team (Late st Contact Info) Description 10/30/2023 Orders Only Orthopaedics [facility] [address] [place] [address] Edison Corcoran PA-C [address] [place] [address] Allergies Active Allergy Reactions Criticality Noted Date Comments Salvador Inhibitors Other (Please comment) High 0 HyperKalemia documented as of this encounter (statuses as of 10/30/2023) Medications Medication Sig Dispensed Refills Start Date [...] 1,000 mcgIndications:S/P gastric bypass 1000 mcg IM [id number] 10/15/2022 07/19/2025 Active vitamin b-12 (Cyanocobalamin) inj 1,000 mcgIndications:Morbid obesity with BMI of 40.0-44.9, adult (HCC),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 [id number] 10/17/2023 12/11/19 25 Active documented as of this encounter (statuses as of 10/30/2023) Active Problems Problem Noted Date Diagnosed Date [...] 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 10/15/2022 [facility] OTHER*[id number] 01/01/2022 S/P gastric bypass 01/01/2022 Marginal ulcer [...] as of this encounter (statuses as of 10/30/2023) Resolved Problems Problem Noted Date Diagnosed Date [...] 10/08/2022 Insulin long-term use 11/19/20182018 Overview: Duplicate shelter (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 insulin 11/19/2018 10/08/2022 Morbid [...] T-tube placement 04/16/2017 05/29/2017 [employer] Other*[id number] 04/13/2013 08/27/2016 Overview: Study Title: Genomic Markers for Patients with Cardiovascular Disease Project # [id number] Assistant Credit Manager: Siena Laws MD [phone] Hypertensive heart disease 03/25/2013 1 07/29/2016 Neuropathy, [...] as of this encounter (statuses as of 10/30/2023) Immunizations Name Administration Dates Next Due COVID-19 [...] Care Team (Late st Contact Info) Description 11/04/2023 10:00 AM EDT Office Visit [facility] [address] [place] [phone] Luis [facility] Rojas [facility] [address] [facility] [address] 11/05/2023 8:45 AM EDT Telemedicine Orthopaedics [facility] [address] [place] [address] Edison Corcoran PA-C [address] [place] [address] 11/07/2023 10:40 AM EDT Telemedicine Nutrition & Weight Management, [facility] [address] [place] [address] Katya Delaney, JOSE [address] [place] [address] 11/11/2023 2:30 PM EDT Telemedicine Pharmacy, [address] [address] 11/13/2023 9:40 AM EDT Office Visit Podiatry [facility] [address] [place] [address] Calli Avila, Renae [address] [place] [address] 01/06/2024 3:00 PM EDT Office Visit Sleep Disorders Ctr [facility] [address] [place] [address] Veena Rainey CRNP [address] [place] [address] 04/27/2024 12:20 PM EDT Office Visit Nutrition & Weight Management, [facility] [address] [place] [address] Cleo Fonseca PA-C [address] [place] [address] Scheduled Procedures Name Priority Associated Diagnoses Date/Ti [...] Vaccines Completed 12/13/2020, 10/12/2020 Albumin/Creatinine Ratio Discontinued 05/18/2 021, 12/09/2019, 01/02/2016, Additional history exists Influenza [...] this encounter Medical Devices Implanted Type Area Band Lining Bander Device Identifier Shelf Expiration Date Model / Serial / Lot Coil Vortex 35 Pltinm [id number] - [id number] Implanted:Qty: 1 on 11/27/2021 [place] [facility] [place] Upper Arm [employer] : NEURO INTR [id number] 08/15/2024 [id number] / / [id number] Coil Vortex 35 Pltinm 925137 - [id number] Implanted:Qty: 1 on 11/27/2021 by Sterling Cates [place] [facility] [place] Upper Arm [employer] : NEURO INTR [id number] 08/15/2024 [id number] / / [id number] Coil Vortex 35 Pltinm [id number] - [id number] Implanted:Qty: 1 on 11/27/2021 by Sterling Cates [place] [facility] [place]: Upper Arm [employer] : NEURO INTR [id number] 08/15/2024 [id number] / / [id number] Coil Vortex 35 Pltinm [id number] - [id number] Implanted:Qty: 1 on 11/27/2021 by Sterling Cates [place] [facility] [place]: Upper Arm [employer] : NEURO INTR [id number] 05/16/2024 [id number] / / [id number] Azur 35 Detachable 5mm 11cm - [id number] Implanted:Qty: 1 on 03/19/2022 by Jose Devine [place] [facility] [place]: Wrist [employer] [id number] 10/18/2025 [id number] / / [id number] Azur 35 Detachable 5mm 11cm - [id number] Implanted:Qty: 1 on 03/19/2022 by Jose Devine [place] [facility] [place]: Wrist [employer] [id number] 06/19/2026 [id number] / / [id number] Mesh Flat Sheet 10x14 [id number] - [id number] Implanted:Qty: 1 on 12/11/2022 by Eros Dash MD [place] [facility]/A: Abdomen CR BARD : DAVOL [id number] 06/17/2027 [id number] / / [id number] documented as of this encounter Advance Directives Documents on File Type Date Recorded Patient Share Holder Saranya kirk POL 11/13/2020 POLST NASREEN SHAW ORDERS FOR LIFE-SUSTAINING [...] the patient have Health Care Power of Ambulatory Care Coordinator? No Full Code 01/28/2022 11:14 AM 01/28/2022 4:47 PM Full Code 05/22/2021 12:38 PM 05/22/2021 5:48 PM This order reflects the patients wishes and were consensually agreed upon. Question Answer Comments Discussion of Advance Directives occurred with: Not Discussed Does the patient have a Living Will? No Does the patient have Health Care Power of Ambulatory Care Coordinator? No Healthcare Agents on File Name Relationship Healthcare Agent [facility] p Communication Zhen Finley Spouse Health Care Agent Care Teams Personnel Counselor Relationship Specialty Start Date End Date Luis Fernando Rojas MD [address] [place] [address] PCP - General Family Medicine 09/23/16 documented as of this encounter
--- OUTSIDE RECORDS SUMMARY | 2024-01-09 10:07 | External Medical Summary | Summary of Care ---
Author Name Unknown Organization [facility] Address [address] [place] [address] Phone [phone] Care Team Providers Care Embossing Machine Operator Helper Name Role Phone Luis Fernando Rojas MD Primary Care Provider [phone] Reason for Visit * Reason Onset Date Comments Med Request 10/30/2023 Encounter Details Date Type Department Care Team (Late st Contact Info) Description 10/30/2023 Telephone Orthopaedics [facility] [address] [place] [address] Edison Corcoran PA-C [address] [facility] [place] [address] Med Request Allergies Active Allergy Reactions Criticality Noted Date [...] per day 30 mL 4 10/28/2023 Active Hospital, Clinic, or Other Facility Administered Medication Ordered Dose Route Frequency Start Date End Date Status vitamin b-12 (Cyanocobalamin) inj 1,000 mcgIndications:S/P gastric bypass 1000 mcg IM [id number] 10/15/2022 07/19/2025 Active vitamin b-12 (Cyanocobalamin) inj 1,000 mcgIndications:Morbid obesity with BMI of 40.0-44.9, adult (HCC),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 [id number] 10/17/2023 12/11/19 25 Active documented as of [...] 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 10/15/2022 [facility] OTHER*[id number] 01/01/2022 S/P gastric bypass 01/01/2022 Marginal ulcer [...] T-tube placement 04/16/2017 05/29/2017 [employer] Other*[id number] 04/13/2013 08/27/2016 Overview: Study Title: Genomic Markers for Patients with Cardiovascular Disease Project # [id number] Roof Designer: Siena Laws MD [phone] Hypertensive heart disease 03/25/2013 1 07/29/2016 Neuropathy, [...] encounter Miscellaneous Notes * Telephone Encounter - Calli Calloway MED LUPE - 10/30/2023 8:32 AM EDT Orthopaedics Pre-Cert Request Medication/Disease State Information: Medication: Hyaluronate- Euflexxa (J7323): inject 20 mg (2 mL) once weekly for 3 weeks (total of 3 injections). Route to [id number] Is there radiological proof(x-ray, cat scan, mri of osteoarthritis? yesIf yes, date of scan:10/17/22 Has the patient tried physical therapy?yes Has the patient tried tylenol or NSAIDs?yes Has the patient failed corticosteroid injections of the knee?yes 10/17/22, not a candidate for further Has the patient tried weight loss?no Has the patient tried knee bracing?yes Has the patient tried a home exercise program?no Diagnosis (including ICD-10): Bilateral Osteoarthritis of Knee- M17.0 Medication(s) Tried/Failed/Contraindicated: See corresponding visit note(s) for additional supporting clinical information. Office Information: Prescriber: edison corcoran documented in this encounter Plan of Treatment Upcoming Encounters Date Type Department Care Team (Late st Contact Info) Description 10/30/2023 9:30 AM EDT Office Visit Orthopaedics [facility] [address] [facility] [place] [address] Edison Corcoran PA-C [address] [facility] [place] [address] 11/04/2023 10:00 AM EDT Office Visit Family [facility], [address] [address] Luis Fernando Rojas MD [address] [place] [address] 11/07/2023 10:40 AM EDT Telemedicine Nutrition & Weight Management, [facility] [address] [facility] [place] [address] Katya Delaney RDN [address] [place] [address] 11/11/2023 2:30 PM EDT Telemedicine Pharmacy, [place] [address] [address] [facility] [address] [facility] [address] [place] [address] 11/13/2023 9:40 AM EDT Office Visit Podiatry [facility] [address] [place] [address] Calli Avila DPM [address] [place] [address] 01/06/2024 3:00 PM EDT Office Visit Sleep Disorders Ctr [facility] [address] [place] [address] Veena Rainey CRNP [address] [place] [address] 04/27/2024 12:20 PM EDT Office Visit Nutrition & Weight Management, [facility] [address] [place] [address] Cleo Fonseca PA-C [address] [place] [address] Scheduled Procedures Name Priority Associated Diagnoses Date/Ti [...] this encounter Medical Devices Implanted Type Area Ham Passer Device Identifier Shelf Expiration Date Model / Serial / Lot Coil Vortex 35 Pltinm [id number] - [id number] Implanted:Qty: 1 on 11/27/2021 by Sterling Cates MD at [place] [facility] [place] Right: Upper Arm [employer] : NEURO INTR [id number] 08/15/2024 [id number] Coil Vortex 35 Pltinm 609845 - [id number] Implanted:Qty: 1 on 11/27/2021 by Sterling Cates MD at OR [facility] Right: Upper Arm [employer] : NEURO INTR [id number] 08/15/2024 [id number] Coil Vortex 35 Pltinm 963140 - [id number] Implanted:Qty: 1 on 11/27/2021 by Sterling Cates MD at [place] [facility] Right: Upper Arm [employer] : NEURO INTR [id number] 08/15/2024 [id number] Coil Vortex 35 Pltinm [id number] - [id number] Implanted:Qty: 1 on 11/27/2021 by Sterling Cates MD at OR [facility] Right: Upper Arm [employer] : NEURO INTR [id number] 05/16/2024 [id number] / [id number] Azur 35 Detachable 5mm 11cm - [id number] Implanted:Qty: 1 on 03/19/2022 by Jose Devine MD at [place] [facility] Right: Wrist [employer] [id number] 10/18/2025 [id number] / / [id number] Azur 35 Detachable 5mm 11cm - [id number] Implanted:Qty: 1 on 03/19/2022 by Jose Devine MD at [place] [facility] Right: Wrist [employer] [id number] 06/19/2026 [id number] / / [id number] Mesh Flat Sheet 10x14 [id number] - [id number] Implanted:Qty: 1 on 12/11/2022 by Eros Dash MD at [place] [facility] N/A: Abdomen CR BARD : DAVOL [id number] 06/17/2027 [id number] / / [id number] documented as of this encounter Advance Directives Documents on File Type Date Recorded Patient Application Integration Specialist Saranya FIGUEROA 11/13/2020 POLST FLAKITOA VALERIA ORDERS FOR LIFE-SUSTAINING TREATMENT Latest Code [...] the patient have Health Care Power of Bag Bundler? No Full Code 01/28/2022 11:14 AM 01/28/2022 4:47 PM Full Code 05/22/2021 12:38 PM 05/22/2021 5:48 PM This order reflects the patients wishes and were consensually agreed upon. Question Answer Comments Discussion of Advance Directives occurred with: Not Discussed Does the patient have a Living Will? No Does the patient have Health Care Power of Bag Bundler? No Healthcare Agents on File Name Relationship Healthcare Agent Relationshi p Communication Zhen Finley Spouse Health Care Agent Care Teams Embossing Machine Operator Helper Relationship Specialty Start Date End Date Luis Fernando Rojas MD [address] [place] [address] PCP - General Family Medicine 09/23/16 documented as of this encounter
--- OUTSIDE RECORDS SUMMARY | 2024-01-09 10:07 | External Medical Summary | Summary of Care ---
Author Name Unknown Organization [facility] Address [address] [place] [address] Phone [phone] Care Team Providers Care Nuclear Physician Name Role Phone Luis Fernando Rojas MD Primary Care Provider [phone] Reason for Visit * Reason Onset Date Comments FYI 10/30/2023 Transferring to different [facility] [place] Encounter Details Date Type Department Care Team (Late st Contact Info) Description 10/30/2023 Telephone Sleep Disorders Ctr [facility] [address] [place] [address] Kelsey Gracia [address] [place] [address] FYI (Transferring to different [facility] [place]) Allergies Active Allergy Reactions Criticality Noted Date [...] 1,000 mcgIndications:S/P gastric bypass 1000 mcg IM [id number] 10/15/2022 07/19/2025 Active vitamin b-12 (Cyanocobalamin) inj 1,000 mcgIndications:Morbid obesity with BMI of 40.0-44.9, adult (HCC),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 [id number] 10/17/2023 12/11/19 25 Active documented as of [...] 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 10/15/2022 [facility] OTHER*[id number] 01/01/2022 S/P gastric bypass 01/01/2022 Marginal ulcer [...] Insulin long-term use 11/19/20182018 Overview: Duplicate terminal operator (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 insulin 11/19/2018 10/08/2022 Morbid [...] T-tube placement 04/16/2017 05/29/2017 [employer] Other*[id number] 04/13/2013 08/27/2016 Overview: Study Title: Genomic Markers for Patients with Cardiovascular Disease Project # [id number] Farm Machinery Mechanic: Siena Laws MD [phone] Hypertensive heart disease 03/25/2013 1 07/29/2016 Neuropathy, [...] encounter Miscellaneous Notes * Telephone Encounter - Main LATONYA Cintron - 10/30/2023 8:28 AM EDT [facility] @Saida sanches, unfortunately we cant restart this order until the patient goes to [facility], retrieves her records, and gives them to [facility]. They have already cancelled the order 2x due to pt not doing this. Oct 29, 2023, 2:03 PM Our office spoke with the pt directly. Pt states she has her records and will drop them off today at [facility] documented in this encounter Plan of Treatment Upcoming Encounters Date Type Department Care Team (Late st Contact Info) Description 10/30/2023 9:30 AM EDT Office Visit Orthopaedics [facility] [address] [facility] [place] [address] Edison Corcoran PA-C [address] [facility] [place] [address] 11/04/2023 10:00 AM EDT Office Visit Family [facility], [place] [address] [place] [address] Luis Fernando Rojas MD [address] [place] [address] 11/07/2023 10:40 AM EDT Telemedicine Nutrition & Weight Management, [facility] [address] [facility] [place] [address] Katya Delaney RDN [facility] [place] [address] 11/11/2023 2:30 PM EDT Telemedicine Pharmacy, [place] [address] [place] [address] [facility] [address] [place] [address] 11/13/2023 9:40 AM EDT Office Visit [facility]iatry [facility] [place] [address] Calli Avila DPM [address] [place] [address] 01/06/2024 3:00 PM EDT Office Visit Sleep Disorders Ctr [facility] [address] [place] [phone] Veena Rainey CRNP [address] [place] [address] 04/27/2024 12:20 PM EDT Office Visit Nutrition & Weight Management, [facility] [address] [place] [address] Cleo Fonseca PA-C [address] [place] [address] Scheduled Procedures Name Priority Associated Diagnoses Date/Ti [...] this encounter Medical Devices Implanted Type Area Nutrition Faculty Member Device Identifier Shelf Expiration Date Model / Serial / Lot Coil Vortex 35 Pltinm [id number] - [id number] Implanted:Qty: 1 on 11/27/2021 by Sterling Cates MD at [place] [facility] Right: Upper Arm [employer] : NEURO INTR [id number] 08/15/2024 [id number] / / [id number] Coil Vortex 35 Pltinm 250028 - [id number] Implanted:Qty: 1 on 11/27/2021 by Sterling Cates MD at [place] [facility] Right: Upper Arm [employer] : [employer] INTR [id number] 08/15/2024 [id number] / / [id number] Coil Vortex 35 Pltinm 955462 - [id number] Implanted:Qty: 1 on 11/27/2021 by Sterling Cates MD at [place] [facility] Right: Upper Arm [employer] : [employer] INTR [id number] 08/15/2024 [id number] / / [id number] Coil Vortex 35 Pltinm 774622 - [id number] Implanted:Qty: 1 on 11/27/2021 by Sterling Cates MD at [place] [facility] Right: Upper Arm [employer] : NE[employer]O INTR [id number] 05/16/2024 [id number] / / [id number] Azur 35 Detachable 5mm 11cm - [id number] Implanted:Qty: 1 on 03/19/2022 by Jose Devine MD at [place] [facility] Right: Wrist [employer] [id number] 10/18/2025 [id number] / / [id number] Azur 35 Detachable 5mm 11cm - [id number] Implanted:Qty: 1 on 03/19/2022 by Jose Devine MD at [place] [facility] Right: Wrist [employer] [id number] 06/19/2026 [id number] / / [id number] Mesh Flat Sheet 10x14 [id number] - [id number] Implanted:Qty: 1 on 12/11/2022 by Eros Dash MD at OR [facility] N/A: Abdomen CR BARD : DAVOL [id number] 06/17/2027 [id number] / / [id number] documented as of this encounter Advance Directives Documents on File Type Date Recorded Patient Educational Administration Teacher Expl anation POLST 11/13/2020 POLST [place] VALERIA [...] the patient have Health Care Power of Institute Scientist? No Full Code 01/28/2022 11:14 AM 01/28/2022 4:47 PM Full Code 05/22/2021 12:38 PM 05/22/2021 5:48 PM This order reflects the patients wishes and were consensually agreed upon. Question Answer Comments Discussion of Advance Directives occurred with: Not Discussed Does the patient have a Living Will? No Does the patient have Health Care Power of Institute Scientist? No Healthcare Agents on File Name Relationship [facility] Zhen Finley Spouse Health Care Agent Care Teams Nuclear Physician Relationship Specialty Start Date End Date Luis Fernando Rojas MD [address] [place] [phone] PCP - General Family Medicine 09/23/16 documented as of this encounter
--- OUTSIDE RECORDS SUMMARY | 2024-01-09 10:07 | External Medical Summary | Summary of Care ---
Author Name Unknown Organization [facility] Address [address] [place] [address] Phone [phone] Care Team Providers Care Dag Sprayer Name Role Phone Luis Fernando Rojas MD Primary Care Provider [phone] Encounter Details Date Type Department Care Team (Latest Contact Info) Description 11/05/2023 8:45 AM EDT Telemedicine Orthopaedics [facility] [address] [place] [address] Edison Corcoran PA-C [address] [place] [address] Primary osteoarthritis of both knees*; Patellar tendinitis of both knees Allergies Active Allergy Reactions Criticality Noted Date [...] 1,000 mcgIndications:S/P gastric bypass 1000 mcg IM [id number] 10/15/2022 07/19/2025 Active vitamin b-12 (Cyanocobalamin) inj 1,000 mcgIndications:Morbid obesity with BMI of 40.0-44.9, adult (HCC),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 [id number] 10/17/2023 12/11/19 25 Active documented as of [...] 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 10/15/2022 [facility] OTHER*[id number] 01/01/2022 S/P gastric bypass 01/01/2022 Marginal ulcer [...] T-tube placement 04/16/2017 05/29/2017 [facility] Other*[id number] 04/13/2013 08/27/2016 Overview: Study Title: Genomic Markers for Patients with Cardiovascular Disease Project # [id number] Pin Drafter: Siena Laws MD [phone] Hypertensive heart disease 03/25/2013 1 07/29/2016 Neuropathy, [...] as of this encounter Progress Notes * Edison Corcoran PA-C - 11/05/2023 9:05 AM EDT After connecting to the patient via telephone, the patient was identified by name and date of . Patient was then informed that this was a telephone call only visit. The patient agreed to participate. Visit Disposition: Routine follow-up Total call duration was 3 minutes. Telephonic visit to notify the patient regarding communication with her certified genetic counselor. Patient does have kidney dysfunction and there was concern regarding the recommendation of topical Voltaren gel for her knee pain secondary to arthritis and patellar tendinitis. We have received confirmation that the patient is permitted to proceed accordingly from her enough certified genetic counselor with Voltaren gel. Certainly, we will avoid injectable corticosteroid due to her diabetes attempting to avoid any type of hyperglycemic event. The patient is going to begin physical therapy as she already has this scheduledalong with bracing, thermal modalities, behavior modification rest. If the patient is not pleased with the results in 4-6 weeks we can set up an FLORES injection series for her knees. The patient like joe let us know and that would ultimately mean following up as needed. I would happily speak with her or see her back sooner upon her request. No other questions or concerns. Satisfied with today'sphone call. This chart was completed in part utilizing [employer] Speech Voice Recognition Software. Grammatical errors, random word insertions, prounoun errors, and incomplete sentences are an occasional consequence of this system due to software limitations, ambient noise, and hardware issues. Any formal questions or concerns about the content, text, or information contained within the body of this dictation should be directly addressed to the provider for clarification. documented in this encounter Plan of Treatment Upcoming Encounters Date Type Department Care Team (Late st Contact Info) Description 11/07/2023 10:40 AM EDT Telemedicine Nutrition & Weight Management, [facility] [address] [facility] [place] [address] Katya Delaney RDN [address] [facility] [place] [address] 11/11/2023 2:30 PM EDT [address]medicine [address], [address] [address] [place], [facility] [address] [facility] [place] [address] 11/13/2023 9:40 AM EDT Office Visit Podiatry [facility] [address] [place] [address] Calli Avila DPM [address] [place] [address] 01/06/2024 3:00 PM EDT Office Visit [facility] [address] [place] [id number] Veena Rainey CRNP [address] [place] [address] 04/27/2024 12:20 PM EDT Office Visit Nutrition & Weight Management, [facility] [address] [place] [address] Cleo Fonseca PA-C [address] [place] [address] Scheduled Procedures Name Priority Associated Diagnoses Date/Ti [...] this encounter Medical Devices Implanted Type Area Fitness Sales Consultant Device Identifier Shelf Expiration Date Model / Serial / Lot Coil Vortex 35 Pltinm [id number] - [id number] Implanted:Qty: 1 on 11/27/2021 by Sterling Cates MD at [place] [facility] [place] Right: Upper Arm [employer] : NEURO INTR [id number] 08/15/2024 [id number] Coil Vortex 35 Pltinm [id number] - [id number] Implanted:Qty: 1 on 11/27/2021 by Sterling Cates MD at [place] [facility] [place] Right: Upper Arm [employer] : NEURO INTR [id number] 08/15/2024 [id number] Coil Vortex 35 Pltinm [id number] - [id number] Implanted:Qty: 1 on 11/27/2021 by Sterling Cates MD at [place] [facility] [place] Right: Upper Arm [employer] : NEURO INTR [id number] 08/15/2024 [id number] Coil Vortex 35 Pltinm [id number] - [id number] Implanted:Qty: 1 on 11/27/2021 by Sterling Cates MD at [place] [facility] [place] Right: Upper Arm [employer] : NEURO INTR [id number] 05/16/2024 [id number] / / [id number] Azur 35 Detachable 5mm 11cm - [id number] Implanted:Qty: 1 on 03/19/2022 by Jose Devine MD at [place] [facility] [place] Right: Wrist [employer] [id number] 10/18/2025 [id number] / / [id number] Azur 35 Detachable 5mm 11cm - [id number] Implanted:Qty: 1 on 03/19/2022 by Jose Devine MD at [place] [facility] [place] Right: Wrist [employer] [id number] 06/19/2026 [id number] / / [id number] Mesh Flat Sheet 10x14 [id number] - [id number] Implanted:Qty: 1 on 12/11/2022 by Eros Dash MD at [place] [facility] [place] N/A: Abdomen CR BARD : DAVOL [id number] 06/17/2027 [id number] / / [id number] documented as of this encounter Visit Diagnoses Diagnosis Primary osteoarthritis of both knees- Primary Primary localized osteoarthrosis, lower leg Patellar tendinitis of both knees documented in this encounter Advance Directives Documents on File Type Date Recorded Patient Sports Centre Manager Expl anation POL 11/13/2020 POLST [place] ORDERS FOR [...] the patient have Health Care Power of Testing Engineer? No Full Code 01/28/2022 11:14 AM 01/28/2022 4:47 PM Full Code 05/22/2021 12:38 PM 05/22/2021 5:48 PM This order reflects the patients wishes and were consensually agreed upon. Question Answer Comments Discussion of Advance Directives occurred with: Not Discussed Does the patient have a Living Will? No Does the patient have Health Care Power of Testing Engineer? No Healthcare Agents on File Name Relationship Healthcare Agent [facility] Communication Zhen Finley Spouse Health Care Agent Care Teams Dag Sprayer Relationship Specialty Start Date End Date Luis Fernando Rojas MD [address] [place] [address] PCP - General Family Medicine 09/23/16 documented as of this encounter
--- OUTSIDE RECORDS SUMMARY | 2024-01-09 10:07 | External Medical Summary | Summary of Care ---
Author Name Unknown Organization [facility] Address [address] [place] [address] Phone [phone] Care Team Providers Care Reproductive Surgeon Name Role Phone Luis Fernando Rojas MD Primary Care Provider [phone] Reason for Referral * Evaluate & Treat - Unlimited Visits (Within 10 days (routine)) - Authorized Specialty Diagnoses / Procedures Referred By Mikey torres Referred To Contact Physical Therapy / Physical Medicine And Rehab Diagnoses Primary osteoarthritis of both knees Patellar tendinitis of both knees Edison Corcoran PA-C [address] [place] [address] Referral ID Status Reason Start Date Expiration Date Visits Requested Visits Authorized [id number] Authorized Specialty Services Required 10/30/[phone] Question Answer Referral Priority Within 10 days (routine) [facility] this [facility] be [facility] Reason for Visit * Reason Comments Follow Up bilateral * Evaluate & Treat - Unlimited Visits (Within 10 days (routine)) - Authorized Specialty Diagnoses / Procedures Referred By Mikey torres Referred To Contact Orthopaedic Surgery / Orthopedics Diagnoses Arthralgia of knee, unspecified laterality Luis Fernando Rojas MD [address] [place] [address] Referral ID Status Reason Start Date Expiration Date Visits Requested Visits Authorized [id number] Authorized Specialty Services Required 10/16/[phone] Encounter Details Date Type Department Care Team (Latest Contact Info) Description 10/30/2023 9:30 AM EDT Office Visit Orthopaedics [facility] [address] [place] [address] Edison Corcoran PA-C [address] [place] [address] Patellar tendinitis of both knees*; Primary osteoarthritis of both knees Allergies Active Allergy Reactions [...] hemoglobin A1c goal of less than 7.0% ([facility]) Inject 0.25 mg under the skin for 4 weeks, then increase to 0.5 mg weekly thereafter 3 mL 3 10/20/2023 Active Insulin Glargine Solostar 100 UNIT/ML Subcutaneous Solution Pen-injector (Basaglar KwikPen)Indication s:Type 2 diabetes mellitus with hemoglobin A1c goal of less than 7.0% ([facility]) Inject 16 units subcutaneously every day. 30 mL 4 10/28/2023 Active Insulin Lispro (1 Unit Dial) 100 UNIT/ML Subcutaneous Solution Pen-injector (HumaLOG KwikPen)Indication s:Type 2 diabetes mellitus with hemoglobin A1c goal of less than 7.0% ([facility]) Inject 14 units with breakfast, 4 units with lunch and 16 units with supper + CF 1:25 over 150. Max dose of 45 units per day 30 mL 4 10/28/2023 Active Hospital, Clinic, or Other Facility Administered Medication Ordered Dose Route Frequency Start Date End Date Status vitamin b-12 (Cyanocobalamin) inj 1,000 mcgIndications:S/P gastric bypass 1000 mcg IM [id number] 10/15/2022 07/19/2025 Active vitamin b-12 (Cyanocobalamin) inj 1,000 mcgIndications:Morbid obesity with BMI of 40.0-44.9, adult ([facility]),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 [id number] 10/17/2023 12/11/19 25 Active documented as of this encounter (statuses as of 10/30/2023) Active Problems Problem Noted Date Diagnosed Date Recurrent ventral incisional hernia 12/11/2022 Last Assessment & Plan: Status post repair on 05/24 -small open area on incision draining serous fluid. Dressing changed. No surrounding erythema to suggest cellulitis. -mild nausea last night. No vomiting. Nausea has dissipated on its own. Bowel movements have been regular. 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 10/15/2022 [facility] OTHER*[id number] 01/01/2022 S/P gastric bypass 01/01/2022 Marginal ulcer [...] duplicate Post-op pain 01/29/2022 10/08/2022 Pre-operative examination 01/01/20223 Dialysis AV fistula malfunction 11/27/2021 11/28/2022 Acute [...] T-tube placement 04/16/2017 05/29/2017 [facility] Other*[id number] 04/13/2013 08/27/2016 Overview: Study Title: Genomic Markers for Patients with Cardiovascular Disease Project # [id number] Companion Caregiver: Siena Laws MD [phone] Hypertensive heart disease 03/25/2013 1 07/29/2016 Neuropathy, [...] Progress Notes * Edison Corcoran PA-C - 10/30/2023 10:17 AM EDT Established patient returns with continued bilateral knee pain. Will need x-rays updated. She points not only to the patellar tendons but also the medial joint lines. She has not trialed physical therapy. No other treatments such as topical agents or icing. Denies any mechanical symptoms or instability. No swelling or redness. No calf pain. Of note, the patient does have kidney dysfunction and is currently on dialysis. complete review of systems negative General: alert and oriented x3 female, no acute distress, appears currently stated age, pleasant, well nourished Skin: Right and left knee does not reveal any erythema, effusion, ecchymosis, abrasion, laceration,skin breakdown otherwise Neurovascular: Right and left lower extremity is neurovascularly intact with good sensation strength throughout, calf supple nontender, toes were mobile, +5 strength dorsi and plantar flexion of the foot Musculoskeletal: Right and left knee ROM 0-120, moderate medial jointline tenderness but tendernessthroughout the patellar tendons is most impressive. Discomfort with resisted knee extension bilateral. There is no dysfunction. She is 5/5 strength. Good quad tone. Can perform straight leg raise. Negative Amor's and Apley grind. Ligamentously stable regarding cruciate and collateral ligaments.Extensor mechanism intact. No obvious cystic change or masses the popliteal fossa. Pes anserine bursa and patellar tendon nontender. Hip and ankle atraumatic X-rays of the right and left knee reveal narrowing along medial and lateral joint lines. It was certainly not end-stage. There is no evidence of loose bodies. No acute findings such as fracture dislocation or subluxation. Unable to identify any type of obvious cystic changes or masses in the bone. Official radiology report to follow accordingly and we listed in the patient's chart under imaging. Personal interpretation and documentation regarding today's plain film radiographs performed by myself. Impression: Bilateral patellar tendinitis with underlying moderate osteoarthritis Plan: Today 's findings were discussed with the patient. They were educated regarding their diagnosis. Multiple treatment options discussed and agreed upon, including physical therapy and cryotherapy. Held off on any type of discussion regarding Voltaren gel due to her kidney dysfunction. I can certainly inquire with her floater operator. Will avoid injectable corticosteroid due to her diabetes and kidney dysfunction. Can certainly be open to FLORES injection discussion in the future for her underlyingarthritis if that continues to be an issue for her. The patient is in agreement. The patient has noother questions or concerns. Pleased with today 's care. Call sooner if needed. This chart was completed in part utilizing [employer] Speech Voice Recognition Software. Grammatical errors, random word insertions, prounoun errors, and incomplete sentences are an occasional consequence of this system due to software limitations, ambient noise, and hardware issues. Any formal questions or concerns about the content, text, or information contained within the body of this dictation should be directly addressed to the provider for clarification. documented in this encounter Nursing Notes * Calli Calloway MED ASSIST - 10/30/2023 9:27 AM EDT Here for follow up on bilateral knee pain, has gotten worse in the last few months. documented in this encounter Plan of Treatment Upcoming Encounters Date Type Department Care Team (Late st Contact Info) Description 11/04/2023 10:00 AM EDT [facility] [address] [facility] [address] Luis Fernando Rojas MD [address] [place] [address] 11/05/2023 8:45 AM EDT Telemedicine Orthopaedics [facility] [address] [facility] [place] [address] Edison Corcoran PA-C [address] [place] [address] 11/07/2023 10:40 AM EDT Telemedicine Nutrition & Weight Management, [facility] [address] [facility] [place] [address] Katya Delaney RDN [address] [facility] [place] [address] 11/11/2023 2:30 PM EDT [facility] [address] [place] [address] [facility] [address] [place] [address] 11/13/2023 9:40 AM EDT Office Visit Podiatry [facility] [address] [facility] [place] [address] Calli Avila DPM [address] [facility] [place] [address] 01/06/2024 3:00 PM EDT Office Visit [facility] Disorders [facility]tr [facility] [address] [facility] [place] [address] Veena Rainey CRNP [address] [facility] [place] [address] 04/27/2024 12:20 PM EDT Office Visit Nutrition & Weight Management, [facility] [address] [facility] [place] [address] Cleo Fonseca PA-C [address] [place] [address] Pending Results Name Type Priority Associated Diagnoses Date /Time XR KNEE 4 OR MORE VIEWS Medical Imaging Routine Primary osteoarthritis of both knees 10/30/2023 9:36 AM EDT Scheduled Procedures Name Priority Associated Diagnoses Date/Ti me COLONOSCOPY FLEXIBLE PROXIMA L DIAGNOSTIC Recall History of colonic polyps Scheduled Referrals Name Type Priority Associated Diagnoses Orde r Schedule PHYSICAL THERAPY REFERRAL OP Referral Within 10 days (routine) Primary osteoarthritis of both knees Patellar tendinitis of both knees Ordered: 10/30/2023 Health Maintenance Due Date Last Done Comments [...] encounter Medical Devices Implanted Type Area Ham Doctor Device Identifier Shelf Expiration Date Model / Serial / Lot Coil Vortex 35 Pltinm [id number] - [id number] Implanted:Qty: 1 on 11/27/2021 by Sterling Cates MD at [place] [facility] [place] Right: Upper Arm [employer] : NEURO INTR [id number] 08/15/2024 [id number] / / [id number] Coil Vortex 35 Pltinm [id number] - [id number] Implanted:Qty: 1 on 11/27/2021 by Sterling Cates MD at OR [facility] [place] Right: Upper Arm [employer] : NEURO INTR [id number] 08/15/2024 [id number] / [id number] Coil Vortex 35 Pltinm [id number] - [id number] Implanted:Qty: 1 on 11/27/2021 by Sterling Cates MD at OR [facility] [place] Right: Upper Arm [employer] : NEURO INTR [id number] 08/15/2024 [id number] / / [id number] Coil Vortex 35 Pltinm [id number] - [id number] Implanted:Qty: 1 on 11/27/2021 by Sterling Cates MD at OR [facility] [place] Right: Upper Arm [employer] : NEURO INTR [id number] 05/16/2024 [id number] / [id number] Azur 35 Detachable 5mm 11cm - [id number] Implanted:Qty: 1 on 03/19/2022 by Jose Devine MD at [place] [facility] Right: Wrist [employer] [id number] 10/18/2025 [id number] / / [id number] Azur 35 Detachable 5mm 11cm - [id number] Implanted:Qty: 1 on 03/19/2022 by Jose Devine MD at OR [facility] Right: Wrist [employer] [id number] 06/19/2026 [id number] / / [id number] Mesh Flat Sheet 10x14 [id number] - [id number] Implanted:Qty: 1 on 12/11/2022 by Eros Dash MD at OR [facility] N/A: Abdomen CR BARD : DAVOL [id number] 06/17/2027 [id number] / / [id number] documented as of this encounter Visit Diagnoses Diagnosis Patellar tendinitis of both knees- Primary Primary osteoarthritis of both knees Primary localized osteoarthrosis, lower leg documented in this encounter Advance Directives Documents on File Type Date Recorded Patient Extruder Operator Expl anation POLST 11/13/2020 POLST [place] [...] the patient have Health Care Power of Instructor Of Nursing? No Full Code 01/28/2022 11:14 AM 01/28/2022 4:47 PM Full Code 05/22/2021 12:38 PM 05/22/2021 5:48 PM This order reflects the patients wishes and were consensually agreed upon. Question Answer Comments Discussion of Advance Directives occurred with: Not Discussed Does the patient have a Living Will? No Does the patient have Health Care Power of Instructor Of Nursing? No Healthcare Agents on File Name Relationship Healthcare Agent [facility] Communication Zhen Finley Spouse Health Care Agent Care Teams Reproductive Surgeon Relationship Specialty Start Date End Date Luis Fernando Rojas MD [address] [place] [id number] PCP - General Family Medicine 09/23/16 documented as of this encounter
--- OUTSIDE RECORDS SUMMARY | 2024-01-09 10:07 | External Medical Summary | Summary of Care ---
Author Name Unknown Organization [facility] Address [address] [place] [address] Phone [phone] Care Team Providers Care Pipe Straightener Name Role Phone Luis Fernando Rojas MD Primary Care Provider [phone] Encounter Details Date Type Department Care Team (Late st Contact Info) Description 10/31/2023 Telephone Orthopaedics [facility] [address] [place] [address] Edison Corcoran PA-C [address] [place] [address] Allergies Active Allergy Reactions Criticality Noted Date Comments Salvador Inhibitors Other (Please comment) High 0 HyperKalemia documented as of this encounter (statuses as of 10/31/2023) Medications Medication Sig Dispensed Refills Start Date [...] 1,000 mcgIndications:S/P gastric bypass 1000 mcg IM [id number] 10/15/2022 07/19/2025 Active vitamin b-12 (Cyanocobalamin) inj 1,000 mcgIndications:Morbid obesity with BMI of 40.0-44.9, adult (HCC),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 [id number] 10/17/2023 12/11/19 25 Active documented as of this encounter (statuses as of 10/31/2023) Active Problems Problem Noted Date Diagnosed Date [...] 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 10/15/2022 [facility] OTHER*[id number] 01/01/2022 S/P gastric bypass 01/01/2022 Marginal ulcer [...] as of this encounter (statuses as of 10/31/2023) Resolved Problems Problem Noted Date Diagnosed Date [...] 10/08/2022 Insulin long-term use 11/19/20182018 Overview: Duplicate intermediate (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 insulin 11/19/2018 10/08/2022 Morbid [...] T-tube placement 04/16/2017 05/29/2017 [employer] Other*[id number] 04/13/2013 08/27/2016 Overview: Study Title: Genomic Markers for Patients with Cardiovascular Disease Project # [id number] Synthetic Cloth Binding Cutter: Siena Laws MD [phone] Hypertensive heart disease 03/25/2013 1 07/29/2016 Neuropathy, [...] as of this encounter (statuses as of 10/31/2023) Immunizations Name Administration Dates Next Due COVID-19 [...] * Telephone Encounter - Calli Calloway MED ASSIST - 10/31/2023 8:43 AM EDT Called and spoke with patient, made her aware of the recommendations, she is agreeable and had no further questions. * Telephone Encounter - Calli Calloway MED ASSIST - 10/31/2023 8:43 AM EDT ----- Message from Edison Corcoran PA-C sent at 10/30/2023 2:01 PM EDT ----- Please advise patient that I spoke with her lunch wagon operator in they have approved the use of Voltaren gel as needed. I will place an order to their pharmacy, thank you ----- Message ----- From: Sameer Hassan MD Sent: 10/30/2023 12:56 PM EDT To: Edison Corcoran PA-C She can have Voltaren Gel. Sameer Hassan MD ----- Message ----- From: Edison Corcoran PA-C Sent: 10/30/2023 10:20 AM EDT To: Sameer Hassan MD [facility] [place] patient I am treating for bilateral knee pain secondary to patellar tendinitis and osteoarthritis. We will be treating conservatively with physical therapy and cryotherapy. Inquiring about Voltaren gel. Obviously concerned due to her head knee of kidney dysfunction and dialysis. By chance, is the absorption right low enough with Voltaren gel that you have approved that is use with the patient's and kidney dysfunction to this point? Thanks for your help! Edison Corcoran PA-C Orthopedics documented in this encounter Plan of Treatment Upcoming Encounters Date Type Department Care Team (Late st Contact Info) Description 11/04/2023 10:00 AM EDT Office Visit [facility] [address] [place] [address] Luis Fernando Rojas MD [address] [place] [address] 11/05/2023 8:45 AM EDT Telemedicine Orthopaedics [facility] [address] [place] [address] Edison Corcoran PA-C [address] [place] [address] 11/07/2023 10:40 AM EDT Telemedicine Nutrition & Weight Management, [facility] [address] [place] [address] Katya Delaney RDN [address] [place] [address] 11/11/2023 2:30 PM EDT Telemedicine Pharmacy, [place] [address] [address] [facility] [place] [address] [facility] [address] [facility] [place] [address] 11/13/2023 9:40 AM EDT Office Visit Podiatry [facility] [address] [place] [address] Calli Avila, DPRenae [address] [place] [address] 01/06/2024 3:00 PM EDT Office Visit [facility] [address] [place] [address] Veena Rainey CRNP [address] [place] [address] 04/27/2024 12:20 PM EDT Office Visit Nutrition & Weight Management, [facility] [address] [place] [address] Cleo Fonseca PA-C [address] [place] [address] Scheduled Procedures Name Priority Associated Diagnoses Date/Ti [...] Vaccines Completed 12/13/2020, 10/12/2020 Albumin/Creatinine Ratio Discontinued 05/18/ 021, 12/09/2019, 01/02/2016, Additional history exists Influenza [...] this encounter Medical Devices Implanted Type Area Manager Lpn Device Identifier Shelf Expiration Date Model / Serial / Lot Coil Vortex 35 Pltinm [id number] - [id number] Implanted:Qty: 1 on 11/27/2021 by Sterling Cates MD at OR [facility] [place] [place] Right: Upper Arm [employer] : NEURO INTR [id number] 08/15/2024 [id number] / / [id number] Coil Vortex 35 Pltinm [id number] - [id number] Implanted:Qty: 1 on 11/27/2021 by Sterling Cates MD at OR [facility] [place] [place] Right: Upper Arm [employer] : NEURO INTR [id number] 08/15/2024 [id number] / / [id number] Coil Vortex 35 Pltinm [id number] - [id number] Implanted:Qty: 1 on 11/27/2021 by Sterling Cates MD at OR [facility] [place] [place] Right: Upper Arm [employer] : NEURO INTR [id number] 08/15/2024 [id number] / / [id number] Coil Vortex 35 Pltinm [id number] - [id number] Implanted:Qty: 1 on 11/27/2021 by Sterling Cates MD at OR [facility] [place] [place] Right: Upper Arm [employer] : NEURO INTR [id number] 05/16/2024 [id number] / / [id number] Azur 35 Detachable 5mm 11cm - [id number] Implanted:Qty: 1 on 03/19/2022 by Jose Devine MD at OR [facility] [place] [place] Right: Wrist [employer] [id number] 10/18/2025 [id number] / / [id number] Azur 35 Detachable 5mm 11cm - [id number] Implanted:Qty: 1 on 03/19/2022 by Jose Devine MD at OR [facility] [place] [place] Right: Wrist [employer] [id number] 06/19/2026 [id number] / / [id number] Mesh Flat Sheet 10x14 [id number] - [id number] Implanted:Qty: 1 on 12/11/2022 by Eros Dash MD at OR [facility] [place] [place] N/A: Abdomen CR BARD : DAVOL [id number] 06/17/2027 [id number] / / [id number] documented as of this encounter Advance Directives Documents on File Type Date Recorded Patient Diesel Mechanic Apprentice Expl anation POLST 11/13/2020 POLST PENNSYLVA VALERIA [...] the patient have Health Care Power of Industrial Workers? No Full Code 01/28/2022 11:14 AM 01/28/2022 4:47 PM Full Code 05/22/2021 12:38 PM 05/22/2021 5:48 PM This order reflects the patients wishes and were consensually agreed upon. Question Answer Comments Discussion of Advance Directives occurred with: Not Discussed Does the patient have a Living Will? No Does the patient have Health Care Power of Industrial Workers? No Healthcare Agents on File Name Relationship [facility] Zhen Finley Spouse Health Care Agent Care Teams Pipe Straightener Relationship Specialty Start Date End Date Luis Fernando Rojas MD [address] [place] [address] PCP - General Family Medicine 09/23/16 documented as of this encounter
--- OUTSIDE RECORDS SUMMARY | 2024-01-09 10:07 | External Medical Summary | Summary of Care ---
Author Name Unknown Organization [facility] Address [address] [place] [address] Phone [phone] Care Team Providers Care Line Construction Supervisor Name Role Phone Luis Fernando Rojas MD Primary Care Provider [phone] Reason for Visit * Reason Onset Date Comments Med Request 10/30/2023 Encounter Details Date Type Department Care Team (Late st Contact Info) Description 10/30/2023 Telephone Orthopaedics [facility] [address] [place] [address] Edison Corcoran PA-C [address] [facility] [place] [address] Med Request Allergies Active Allergy Reactions Criticality [...] 1,000 mcgIndications:S/P gastric bypass 1000 mcg IM [id number] 10/15/2022 07/19/2025 Active vitamin b-12 (Cyanocobalamin) inj 1,000 mcgIndications:Morbid obesity with BMI of 40.0-44.9, adult (HCC),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 [id number] 10/17/2023 12/11/19 25 Active documented as of [...] 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 10/15/2022 [facility] OTHER*[id number] 01/01/2022 S/P gastric bypass 01/01/2022 Marginal ulcer [...] 10/08/2022 Insulin long-term use 11/19/20182018 Overview: 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 11/19/2018 10/08/2022 Morbid [...] T-tube placement 04/16/2017 05/29/2017 [employer] Other*[id number] 04/13/2013 08/27/2016 Overview: Study Title: Genomic Markers for Patients with Cardiovascular Disease Project # [id number] Animation Producer: Siena Laws MD [phone] Hypertensive heart disease 03/25/2013 1 07/29/2016 Neuropathy, [...] encounter Miscellaneous Notes * Telephone Encounter - Francy Chandra OSA - 10/30/2023 8:51 AM EDT SEE REFERRAL MESSAGE * Telephone Encounter - Calli Calloway MED ASSIST - 10/30/2023 8:32 AM EDT Orthopaedics Pre-Cert Request Medication/Disease State Information: Medication: Hyaluronate- Euflexxa (J7323): inject 20 mg (2 mL) once weekly for 3 weeks (total of 3 injections). Route to [id number] Is there radiological proof(x-ray, cat scan, mri [...] 10/30/2023 9:30 AM EDT Office Visit Orthopaedics [facility] [address] [facility] [place] [address] Edison Corcoran PA-C [facility] [place] [address] 11/04/2023 10:00 AM EDT Office Visit [address] [address] Luis Fernando Rojas MD [address] [place] [address] 11/07/2023 10:40 AM EDT Telemedicine Nutrition & Weight Management, [facility] [address] [place] [address] Katya Delaney RDN [address] [place] [address] 11/11/2023 2:30 PM EDT [address] [address] [facility] [address] [facility] [place] [address] 11/13/2023 9:40 AM EDT Office Visit Podiatry [facility] [address] [place] [address] Calli Avila, DPRenae [address] [place] [address] 01/06/2024 3:00 PM EDT Office [facility] [place] [address] Veena Rainey CRNP [address] [place] [address] 04/27/2024 12:20 PM EDT Office Visit Nutrition & Weight Management, [facility] [address] [facility] [place] [address] Cleo Fonseca PA-C [address] [place] [address] Scheduled Procedures Name Priority Associated Diagnoses Date/Ti [...] this encounter Medical Devices Implanted Type Area Communications Clerk Device Identifier Shelf Expiration Date Model / Serial / Lot Coil Vortex 35 Pltinm [id number] - [id number] Implanted:Qty: 1 on 11/27/2021 by Sterling Cates MD at [place] [facility] [place] Right: Upper Arm [employer] : NEURO INTR [id number] 08/15/2024 [id number] Coil Vortex 35 Pltinm [id number] - [id number] Implanted:Qty: 1 on 11/27/2021 by Sterling Cates MD at [place] [facility] [place] Right: Upper Arm [employer] : NEURO INTR [id number] 08/15/2024 [id number] / [id number] Coil Vortex 35 Pltinm [id number] - [id number] Implanted:Qty: 1 on 11/27/2021 by Sterling Cates MD at [place] [facility] [place] Right: Upper Arm [employer] : NEURO INTR [id number] 08/15/2024 [id number] / / [id number] Coil Vortex 35 Pltinm [id number] - [id number] Implanted:Qty: 1 on 11/27/2021 by Sterling Cates MD at [place] [facility] [place] Right: Upper Arm [employer] : NEURO INTR [id number] 05/16/2024 [id number] / / [id number] Azur 35 Detachable 5mm 11cm - [id number] Implanted:Qty: 1 on 03/19/2022 by Jose Devine MD at [place] [facility] [place] Right: Wrist [employer] [id number] 10/18/2025 [id number] / / [id number] Azur 35 Detachable 5mm 11cm - [id number] Implanted:Qty: 1 on 03/19/2022 by Jose Devine MD at [place] [facility] [place] Right: Wrist [employer] [id number] 06/19/2026 [id number] / / [id number] Mesh Flat Sheet 10x14 [id number] - [id number] Implanted:Qty: 1 on 12/11/2022 by Eros Dash MD at [place] [facility] [place] N/A: Abdomen CR BARD : DAVOL [id number] 06/17/2027 [id number] / / [id number] documented as of this encounter Advance Directives Documents on File Type Date Recorded 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 No Full Code 01/28/2022 11:14 AM 01/28/2022 4:47 PM Full Code 05/22/2021 12:38 PM 05/22/2021 5:48 PM This order reflects the patients wishes and were consensually agreed upon. Question Answer Comments Discussion of Advance Directives occurred with: Not Discussed Does the patient have a Living Will? No Does the patient have Health Care Power of Traffic Sign Supervisor? No Healthcare Agents on File Name Relationship [facility] Zhen Finley Spouse Health Care Agent Care Teams Line Construction Supervisor Relationship Specialty Start Date End Date Luis Fernando Rojas MD [address] [place] [address] PCP - General Family Medicine 09/23/16 documented as of this encounter
--- OUTSIDE RECORDS SUMMARY | 2024-01-09 10:08 | External Medical Summary | Summary of Care ---
Author Name Unknown Organization [facility] Address [address] [place] [address] Phone [phone] Care Team Providers Care Core Stripper Name Role Phone Luis Fernando Rojas MD Primary Care Provider [phone] Reason for Visit * Reason Onset Date Comments Patient Assistance Program 10/28/2023 Basag lar and humalog Encounter Details Date Type Department Care Team (Late st Contact Info) Description 10/28/2023 Telephone Pharmacy, [address] [address] Woody Aiken, [facility] [address] [place] [address] Patient Assistance Program (Basaglar and h... Allergies Active Allergy Reactions Criticality Noted Date Comments Salvador Inhibitors Other (Please comment) High 0 HyperKalemia documented as of this encounter (statuses as of 10/28/2023) Medications Medication Sig Dispensed Refills Start Date End Date Status Melatonin 10 MG Tablet Take 12 mg by mouth at bedtime. 0 Active Aspirin 81 MG Oral Tablet ChewableIndicati ons:Type 2 diabetes mellitus 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 dialysis, with long-term current use of insulin (HCC) Take 1 Tab by mouth at bedtime. with food. 90 Tab 3 02/17/20 21 Active FreeStyle Jennifer 2 Sensor Use as directed. Replace every 14 days (supplied through DME) 7 Each 3 05/17/20 21 Active CPAP every night at bedtime. 12 0 Active Ketoconazole 2 % External Shampoo (Nizoral)Indicat ions:Seborrheic dermatitis Apply to scalp once weekly. Lather and leave on for 5 minutes before rinsing. Alternate with over the counter anti-dandruff shampoos on off days. 120 mL 5 09/21/19 22 Active ProRenal + D Oral Tablet Take by mouth 1 Tablet daily . 0 02/29/20 22 Active Vitamin D 25 MCG (1000 UT) [...] pain continues, call 911. 25 Tablet 11 04/26/20 22 Active Acetaminophen 325 MG Oral Tablet (Tylenol) Take 2 Tablets by mouth every 6 hours as needed. 0 Active hydrALAZINE HCl 100 MG Oral TabletIndication s:HTN, goal below 140/90 TAKE 1 TABLET BY MOUTH EVERY DAY IN THE MORNING AND 1 TABLET AT NOON, AND 1 TABLET AT BEDTIME 270 Tablet 2 12/12/19 23 024 Active Carvedilol 12.5 MG Oral Tablet (Coreg)Indicatio ns:HTN, goal below 140/90 TAKE ONE TABLET BY MOUTH EVERY DAY IN THE MORNING AND TAKE ONE TABLET BY MOUTH EVERY DAY BEFORE BEDTIME 180 Tablet 4 12/12/19 23 024 Active Citalopram Hydrobromide 40 MG Oral Tablet (CeleXA)Indicati ons:Major depressive disorder, single episode, moderate (HCC) Take 1 Tablet by mouth in the morning. 90 Tablet 3 04/17/20 23 Active Calcium Citrate-Vitamin D 315-5 MG-MCG Oral [...] times daily with insulin 400 Each 3 05/01/20 23 Active Omeprazole 20 MG Oral Capsule Delayed Release (PriLOSEC)Indica tions:Gastroesop hageal reflux disease without esophagitis Take 1 Capsule by mouth in the morning. 100 Capsule 1 05/01/20 23 Active Calcium Acetate (Phos Binder) 667 MG Oral Capsule (Phoslo) TAKE THREE CAPSULES BY MOUTH WITH EACH MEAL AND TWO CAPSULES WITH SNACKS 1300 Capsule 3 05/01/20 23 Active amLODIPine Besylate 5 MG Oral Tablet (Norvasc) TAKE ONE TABLET BY MOUTH EVERY DAY IN THE MORNING 90 Tablet 1 05/15/20 23 024 Active Additional Information Patient taking differently: 5 mg Oral HS, Reported on 06/24/2023 Levothyroxine Sodium 100 MCG Oral Tablet (Levoxyl)Indicat ions:Hypothyroid ism, unspecified type TAKE 1 TABLET BY MOUTH DAILY AT LEAST 30 MINUTES PRIOR TO FIRST MEAL OF THE DAY OR OTHER MEDICATIONS 90 Tablet 3 09/10/19 24 Active Gabapentin 300 MG Oral Capsule (Neurontin) Take 1 Capsule by mouth at bedtime. Follow up with your primary care provider for further management. 90 Capsule 3 09/10/19 24 Active Atorvastatin Calcium 40 MG Oral Tablet (Lipitor)Indicat ions:Dyslipidemi a, goal LDL below 100 TAKE ONE TABLET BY MOUTH EVERY EVENING 90 Tablet 3 09/10/19 24 025 Active Semaglutide(0.25 or 0.5MG/DOS) 2 MG/3ML Solution Pen-injector (Ozempic)Indicat ions:Type 2 diabetes mellitus with hemoglobin A1c goal of less than 7.0% (HCC) Inject 0.25 mg under the skin for 4 weeks, then increase to 0.5 mg weekly thereafter 3 mL 3 10/20/19 24 Active Insulin Glargine Solostar 100 UNIT/ML Subcutaneous Solution Pen-injector (Basaglar KwikPen)Indicati ons:Type 2 diabetes mellitus with hemoglobin A1c goal of less than 7.0% (HCC) Inject 16 units subcutaneously every day. 30 mL 4 10/28/19 24 Active Insulin Lispro (1 Unit Dial) 100 UNIT/ML Subcutaneous Solution Pen-injector (HumaLOG KwikPen)Indicati ons:Type 2 diabetes mellitus with hemoglobin A1c goal of less than 7.0% (HCC) Inject 14 units with breakfast, 4 units with lunch and 16 units with supper + CF 1:25 over 150. Max dose of 45 units per day 30 mL 10/28/19 Active Insulin Glargine Solostar 100 UNIT/ML Subcutaneous Solution Pen-injector (Lantus SoloStar)Indicat ions:Type 2 diabetes mellitus with hemoglobin A1c goal of less than 7.0% (HCC) Inject 16 Units under the skin in the morning. 30 mL 3 10/14/19 24 024 Discontinued NovoLOG FlexPen 100 UNIT/ML Subcutaneous Solution Pen-injector (insulin aspart)Indicatio ns:Type 2 diabetes mellitus with hemoglobin A1c goal of less than 7.0% (HCC) Inject 14 units with breakfast, 4 units with lunch, and 16 units with supper + CF 1:25 over 150. Follow chart provided by MTM on 10/14/23 45 mL 3 10/14/19 024 Discontinued(En d of Procedure) Insulin Lispro (1 Unit Dial) 100 UNIT/ML Subcutaneous Solution Pen-injector (HumaLOG KwikPen)Indicati ons:Type 2 diabetes mellitus with hemoglobin A1c goal of less than 7.0% (HCC) Inject 14 units with breakfast, 4 units with lunch and 16 units with supper + CF 1:25over 150. 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 [id number] 10/17/2023 12/11/19 25 Active documented as of this encounter (statuses as of 10/28/2023) Active Problems Problem Noted Date Diagnosed Date [...] 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 10/15/2022 [facility] OTHER*[id number] 01/01/2022 S/P gastric bypass 01/01/2022 Marginal ulcer [...] as of this encounter (statuses as of 10/28/2023) Resolved Problems Problem Noted Date Diagnosed Date [...] 10/08/2022 Insulin long-term use 11/19/20182018 Overview: 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 11/19/2018 10/08/2022 Morbid [...] T-tube placement 04/16/2017 05/29/2017 [employer] Other*[id number] 04/13/2013 08/27/2016 Overview: Study Title: Genomic Markers for Patients with Cardiovascular Disease Project # [id number] Rib Stiffener And Heel Dipper: Siena Laws MD [phone] Hypertensive heart disease 03/25/2013 1 07/29/2016 Neuropathy, [...] as of this encounter (statuses as of 10/28/2023) Immunizations Name Administration Dates Next Due COVID-19 [...] encounter Miscellaneous Notes * Addendum Note - Woody Aiken [facility] - 10/28/2023 10:44 AM EDT Addended by: WOODY AIKEN on: 10/28/2023 10:44 AM Modules accepted: Orders * Addendum Note - Woody Aiken [facility] - 10/28/2023 9:41 AM EDTAddended by: WOODY AIKEN on: 10/28/2023 09:41 AM Modules accepted: Orders * Telephone Encounter - Woody Aiken RP - 10/28/2023 9:33 AM EDT Filled out and faxed enrollment forms for patient to get Basaglar and Humalog from [employer]. [employer]scripts sent to [facility]. Received successful confirmation of fax. Forms scanned into chart. Diabetes regimen: DEC Lantus 16 units daily ADJ Novolog 1416 with respective meals + CF 1:25 over 150 [see chart provided at bottom of note from 10/14/23] - max dose of 45 units per day START Ozempic 0.25 mg once weekly x 4 weeks, then increase to 0.5 mg once weekly thereafter. Woody Aiken, PharmD Clinical Pharmacist Medication Therapy Disease Management 10/28/2023, 9:33 AM documented in this encounter Plan of Treatment Upcoming Encounters Date Type Department Care Team (Late st Contact Info) Description 10/30/2023 9:30 AM EDT Office Visit Orthopaedics [facility] [address] [facility] [place] [address] Edison Corcoran PA-C [address] [place] [address] 11/04/2023 10:00 AM EDT Office Visit Family [facility], [place] [address] [place] [address] Luis Fernando Rojas MD [address] [place] [address] 11/07/2023 10:40 AM EDT Telemedicine Nutrition & Weight Management, [facility] [address] [facility] [place] [address] Ktaya Delaney RDN [address] [facility] [place] [address] 11/11/2023 2:30 PM EDT Telemedicine Pharmacy, [place] [address] [place] [address] [facility] [address] [place] [address] 11/13/2023 9:40 AM EDT Office Visit Podiatry [facility] [address] [facility] [place] [address] Calli Avila DPM [address] [place] [address] 01/06/2024 3:00 PM EDT Office Visit [facility] Disorders Ctr [facility] [address] [place] [phone] Veena Rainey CRNP [address] [place] [address] 04/27/2024 12:20 PM EDT Office Visit Nutrition & Weight Management, [facility] [address] [place] [address] Cleo Fonseca PA-C [address] [place] [address] Scheduled Procedures Name Priority Associated Diagnoses Date/Ti [...] this encounter Medical Devices Implanted Type Area Photo Intern Device Identifier Shelf Expiration Date Model / Serial / Lot Coil Vortex 35 Pltinm [id number] - [id number] Implanted:Qty: 1 on 11/27/2021 by Sterling Cates MD at [place] [facility] [place] Right: Upper Arm [employer] : NEURO INTR [id number] 08/15/2024 [id number] / / [id number] Coil Vortex 35 Pltinm [id number] - [id number] Implanted:Qty: 1 on 11/27/2021 by Sterling Cates MD at [place] [facility] [place] Right: Upper Arm [employer] : NEURO INTR [id number] 08/15/2024 [id number] / / [id number] Coil Vortex 35 Pltinm [id number] - [id number] Implanted:Qty: 1 on 11/27/2021 by Sterling Cates MD at [place] [facility] [place] Right: Upper Arm [employer] : NEURO INTR [id number] 08/15/2024 [id number] / / [id number] Coil Vortex 35 Pltinm [id number] - [id number] Implanted:Qty: 1 on 11/27/2021 by Sterling Cates MD at [place] [facility] [place] Right: Upper Arm [employer] : NEURO INTR [id number] 05/16/2024 [id number] / / [id number] Azur 35 Detachable 5mm 11cm - [id number] Implanted:Qty: 1 on 03/19/2022 by Jose Devine MD at [place] [facility] [place] Right: Wrist [employer] [id number] 10/18/2025 [id number] / / [id number] Azur 35 Detachable 5mm 11cm - [id number] Implanted:Qty: 1 on 03/19/2022 by Jose Devine MD at [place] [facility] [place] Right: Wrist [employer] [id number] 06/19/2026 [id number] / / [id number] Mesh Flat Sheet 10x14 [id number] - [id number] Implanted:Qty: 1 on 12/11/2022 by Eros Dash MD at [place] [facility] [place] N/A: Abdomen CR BARD : DAVOL [id number] 06/17/2027 [id number] / / [id number] documented as of this encounter Visit Diagnoses Diagnosis Type 2 diabetes mellitus with hemoglobin A1c goal of less than 7.0% (HCC)- Primary documented in this encounter Advance Directives Documents on File Type Date Recorded 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 No Full Code 01/28/2022 11:14 AM 01/28/2022 4:47 PM Full Code 05/22/2021 12:38 PM 05/22/2021 5:48 PM This order reflects the patients wishes and were consensually agreed upon. Question Answer Comments Discussion of Advance Directives occurred with: Not Discussed Does the patient have a Living Will? No Does the patient have Health Care Power of Water Mangle Tender? No Healthcare Agents on File Name Relationship Healthcare Agent [facility] p Communication Zhen Finley Spouse Health Care Agent Care Teams Core Stripper Relationship Specialty Start Date End Date Luis Fernando Rojas MD [address] [place] [address] PCP - General Family Medicine 09/23/16 documented as of this encounter
--- OUTSIDE RECORDS SUMMARY | 2024-01-09 10:08 | External Medical Summary | Summary of Care ---
Author Name Unknown Organization [facility] Address [address] [place] [address] Phone [phone] Care Team Providers Care Seismograph Chief Name Role Phone Luis Fernando Rojas MD Primary Care Provider [phone] Reason for Visit * Reason Onset Date Comments Order Request 10/22/2023 Re: CPAP supplie s Encounter Details Date Type Department Care Team (Late st Contact Info) Description 10/22/2023 Telephone Pulmonary Medicine, [facility] [address] [place] [address] Kelsey Garcia, [address] [place] [address] Order Request (Re: CPAP supplies) Allergies Active Allergy Reactions Criticality Noted Date Comments Salvador Inhibitors Other (Please comment) High 0 HyperKalemia documented as of this encounter (statuses as of 10/29/2023) Medications Medication Sig Dispensed Refills Start Date [...] call 911. 25 Tablet 11 2 Active Acetaminophen 325 MG Oral Tablet (Tylenol) [...] skin in the morning. 30 mL 3 4 10/28/19 24 Discontinued NovoLOG FlexPen 100 UNIT/ML Subcutaneous Solution Pen-injector (insulin aspart)Indicatio ns:Type 2 diabetes mellitus with hemoglobin A1c goal of less than 7.0% (HCC) Inject 14 units with breakfast, 4 units with lunch, and 16 units with supper + CF 1:25 over 150. 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 [id number] 10/17/2023 12/11/19 Active documented as of this encounter (statuses as of 10/29/2023) Active Problems Problem Noted Date Diagnosed Date [...] 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 10/15/2022 [facility]EARCH OTHER*[id number] 01/01/2022 S/P gastric bypass 01/01/2022 Marginal ulcer [...] as of this encounter (statuses as of 10/29/2023) Resolved Problems Problem Noted Date Diagnosed Date [...] 10/08/2022 Insulin long-term use 11/19/20182018 Overview: Duplicate manager intermediate (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 insulin 11/19/2018 10/08/2022 [...] T-tube placement 04/16/2017 05/29/2017 [employer] Other*[id number] 04/13/2013 08/27/2016 Overview: Study Title: [employer]omic Markers for Patients with Cardiovascular Disease Project # [id number] Technical Solution Architect: Siena Laws MD [phone] Hypertensive heart disease 03/25/2013 1 07/29/2016 Neuropathy, [...] as of this encounter (statuses as of 10/29/2023) Immunizations Name Administration Dates Next Due COVID-19 [...] encounter Miscellaneous Notes * Telephone Encounter - Saida Main LPN - 10/29/2023 10:47 AM EDT Our office sent a message to to restart the order * Telephone Encounter - Yasmin Calvert LPN - 10/27/2023 2:29 PM EDT LM asking pt to return call. * Telephone Encounter - Kelsey Garcia DO - 10/24/2023 2:47 PM EDT Presumably this is the order placed at our 08/05 appt for CPAP supplies with change in DME to [facility], which patient had requested. Can we confirm with patient that she still wants to work with [facility] for supplies? If so, ensure she has their contact info, and ask TH to re-instate the order. * Telephone Encounter - Sakina Huang OSA - 10/22/2023 7:37 AM EDT From [employer]: thank you for submitting this order to us, please be advised that the DME supplier has cancelled this order due to not being able to get in touch with the PT. If the PT does wish to continue the order please leave us a portal comment and we can restart this order. Thanks! documented in this encounter Plan of Treatment Upcoming Encounters Date Type Department Care Team (Late st Contact Info) Description 10/30/2023 9:30 AM EDT Office Visit Orthopaedics [facility] [address] [place] [address] Edison Corcoran PA-C [address] [address] 11/04/2023 10:00 AM EDT [facility] [address] [facility] [phone] Luis Fernando Rojas [facility] [address] [facility] [address] 11/07/2023 10:40 AM EDT Telemedicine Nutrition & Weight Management, [facility] [address] [place] [address] Katya Delaney RDN [address] [place] [address] 11/11/2023 2:30 PM EDT Telemedicine Pharmacy, [place] [address] [facility] [address] [facility] [address] [facility] [place] [address] 11/13/2023 9:40 AM EDT Office Visit Podiatry [facility] [address] [place] [address] Calli Avila, DAIANA [address] [place] [address] 01/06/2024 3:00 PM EDT Office Visit [facility] [address] [facility] [place] [phone] Veena Rainey CRNP [address] [place] [address] 04/27/2024 12:20 PM EDT Office Visit Nutrition & Weight Management, [facility] [address] [place] [address] Cleo Fonseca PA-C [address] [place] [address] Scheduled Procedures Name Priority Associated Diagnoses Date/Ti [...] this encounter Medical Devices Implanted Type Area Trap Operator Device Identifier Shelf Expiration Date Model / Serial / Lot Coil Vortex 35 Pltinm [id number] - [id number] Implanted:Qty: 1 on 11/27/2021 by Sterling Cates MD at [place] [facility] [place] Right: Upper Arm [employer] : NEURO INTR [id number] 08/15/2024 [id number] / / [id number] Coil Vortex 35 Pltinm [id number] - [id number] Implanted:Qty: 1 on 11/27/2021 by Sterling Cates MD at [place] [facility] [place] Right: Upper Arm [employer] : NEURO INTR [id number] 08/15/2024 [id number] / / [id number] Coil Vortex 35 Pltinm [id number] - [id number] Implanted:Qty: 1 on 11/27/2021 by Sterling Cates MD at [place] [facility] [place] Right: Upper Arm [employer] : NEURO INTR [id number] 08/15/2024 [id number] / / [id number] Coil Vortex 35 Pltinm [id number] - [id number] Implanted:Qty: 1 on 11/27/2021 by Sterling Cates MD at [place] [facility] [place] Right: Upper Arm [employer] : NEURO INTR [id number] 05/16/2024 [id number] / / [id number] Azur 35 Detachable 5mm 11cm - [id number] Implanted:Qty: 1 on 03/19/2022 by Jose Devine MD at [place] [facility] [place] Right: Wrist [employer] [id number] 10/18/2025 [id number] / / [id number] Azur 35 Detachable 5mm 11cm - [id number] Implanted:Qty: 1 on 03/19/2022 by Jose Devine MD at [place] [facility] [place] Right: Wrist [employer] [id number] 06/19/2026 [id number] / / [id number] Mesh Flat Sheet 10x14 [id number] - [id number] Implanted:Qty: 1 on 12/11/2022 by Eros Dash MD at [place] [facility] [place] N/A: Abdomen CR BARD : DAVOL [id number] 06/17/2027 [id number] / / [id number] documented as of this encounter Advance Directives Documents on File Type Date Recorded Patient Educational Diagnostician Expl anation POLST 11/13/2020 POLST NASREEN SHAW [...] the patient have Health Care Power of In Service Educator? No Full Code 01/28/2022 11:14 AM 01/28/2022 4:47 PM Full Code 05/22/2021 12:38 PM 05/22/2021 5:48 PM This order reflects the patients wishes and were consensually agreed upon. Question Answer Comments Discussion of Advance Directives occurred with: Not Discussed Does the patient have a Living Will? No Does the patient have Health Care Power of In Service Educator? No Healthcare Agents on File Name Relationship Healthcare Agent [facility] Communication Zhen Finley Spouse Health Care Agent Care Teams Seismograph Chief Relationship Specialty Start Date End Date Luis Fernando Rojas MD [address] [place] [address] PCP - General Family Medicine 09/23/16 documented as of this encounter
--- OUTSIDE RECORDS SUMMARY | 2024-01-09 10:08 | External Medical Summary | Summary of Care ---
Author Name Unknown Organization [facility] Address [address] [place] [address] Phone [phone] Care Team Providers Care Radiosonde Operator Name Role Phone Luis Fernando Rojas MD Primary Care Provider [phone] Reason for Visit * Reason Onset Date Comments Patient Assistance Program 10/28/2023 Basag lar and humalog Encounter Details Date Type Department Care Team (Late st Contact Info) Description 10/28/2023 Telephone Pharmacy, [address] [address] Woody Aiken, [facility] [address] [place] [address] Patient Assistance Program (Basaglar and h... Allergies [...] 90 Tablet 3 4 09/09/19 25 Active NovoLOG FlexPen 100 UNIT/ML Subcutaneous Solution Pen-injector (insulin aspart)Indicatio ns:Type 2 diabetes mellitus with hemoglobin A1c goal of less than 7.0% (HCC) Inject 14 units with breakfast, 4 units with lunch, and 16 units with supper + CF 1:25 over 150. Follow chart provided by MTM on 10/14/23 45 mL 3 4 Active Semaglutide(0.25 or 0.5MG/DOS) 2 MG/3ML Solution [...] per day 30 mL 4 4 Active Insulin Glargine Solostar 100 UNIT/ML Subcutaneous Solution Pen-injector (Lantus SoloStar)Indicat ions:Type 2 diabetes mellitus with hemoglobin A1c goal of less than 7.0% (HCC) Inject 16 Units under the skin in the morning. 30 mL 3 4 10/28/19 24 Discontinued Insulin Lispro (1 Unit Dial) 100 UNIT/ML Subcutaneous Solution Pen-injector (HumaLOG KwikPen)Indicati ons:Type 2 diabetes mellitus with hemoglobin A1c goal of less than 7.0% (HCC) Inject 14 units with breakfast, 4 units with lunch and 16 units with supper + CF 1:25over 150. 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 10/15/2022 [facility] OTHER*[id number] 01/01/2022 S/P gastric bypass 01/01/2022 Marginal ulcer [...] Insulin long-term use 11/19/20182018 Overview: Duplicate terminal gauger (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 insulin 11/19/2018 10/08/2022 Morbid [...] T-tube placement 04/16/2017 05/29/2017 [employer] Other*[id number] 04/13/2013 08/27/2016 Overview: Study Title: Genomic Markers for Patients with Cardiovascular Disease Project # [id number] Freight: Siena Laws MD [phone] Hypertensive heart disease 03/25/2013 1 07/29/2016 Neuropathy, [...] Notes * Addendum Note - Woody Aiken RPh - 10/28/2023 9:41 AM EDTAddended by: WOODY AIKEN on: 10/28/2023 09:41 AM Modules accepted: Orders * Telephone Encounter - Woody Aiken RPh - 10/28/2023 9:33 AM EDT Filled out and faxed enrollment forms for patient to get Basaglar and Humalog from [place] [facility] PAP. Escripts sent to [facility]. Received successful confirmation of fax. Forms scanned into chart. Diabetes regimen: DEC Lantus 16 units daily ADJ Novolog 14-4-16 with respective meals + [...] 10/30/2023 9:30 AM EDT Office Visit Orthopaedics [facility] [address] [place] [address] Edison Corcoran PA-C 132 [facility] [place] [address] 11/04/2023 10:00 AM EDT Office Visit Family [facility], [place] [address] [place] [phone] Luis Fernando Rojas MD [address] [place] [address] 11/07/2023 10:40 AM EDT Telemedicine Nutrition & Weight Management, [facility] 132 [facility] [place] [address] Katya Delaney RDN 132 [facility] [address] 11/11/2023 2:30 PM EDT Telemedicine Pharmacy, [place] [address] [place] [address] [facility] [address] [place] [address] 11/13/2023 9:40 AM EDT Office Visit Podiatry [facility] 132 [facility] [place] [address] Calli Avila, DAIANA 132 [facility] [place] [address] 01/06/2024 3:00 PM EDT Office Visit Sleep Disorders Ctr [facility] 132 [facility] [place] [address] Veena Rainey CRNP 132 [facility] [place] [address] 04/27/2024 12:20 PM EDT Office Visit Nutrition & Weight Management, [facility] [address] [place] [address] Cleo Fonseca PA-C [address] [place] [address] Scheduled Procedures Name Priority Associated Diagnoses Date/Ti [...] this encounter Medical Devices Implanted Type Area Instrumentation Engineer Device Identifier Shelf Expiration Date Model / Serial / Lot Coil Vortex 35 Pltinm [id number] - [id number] Implanted:Qty: 1 on 11/27/2021 by Sterling Cates MD [place] [facility] [place]: Upper Arm [employer] : NEURO INTR [id number] 08/15/2024 [id number] / / [id number] Coil Vortex 35 Pltinm [id number] - [id number] Implanted:Qty: 1 on 11/27/2021 by Sterling Cates MD [place] [facility] [place]: Upper Arm [employer] : NEURO INTR [id number] 08/15/2024 [id number] / / [id number] Coil Vortex 35 Pltinm [id number] - [id number] Implanted:Qty: 1 on 11/27/2021 by Sterling Cates MD [place] [facility] [place]: Upper Arm [employer] : NEURO INTR [id number] 08/15/2024 [id number] Coil Vortex 35 Pltinm [id number] - [id number] Implanted:Qty: 1 on 11/27/2021 by Sterling Ctaes MD at [place] [facility] [place]: Upper Arm [employer] : NEURO INTR [id number] 05/16/2024 [id number] / [id number] Azur 35 Detachable 5mm 11cm - [id number] Implanted:Qty: 1 on 03/19/2022 by Jose Devine MD at [place] [facility] [place] Right: Wrist A V.E.T.S.c.a.r.[employer]. [employer] [id number] 10/18/2025 [id number] / / [id number] Azur 35 Detachable 5mm 11cm - [id number] Implanted:Qty: 1 on 03/19/2022 by Jose Devine MD at [place] [facility] [place] Right: Wrist [employer] [id number] 06/19/2026 [id number] / / [id number] Mesh Flat Sheet 10x14 [id number] - [id number] Implanted:Qty: 1 on 12/11/2022 by Eros Dash MD at [place] [facility] [place] N/A: Abdomen CR BARD : DAVOL [id number] 06/17/2027 [id number] / / [id number] documented as of this encounter Visit Diagnoses Diagnosis Type 2 diabetes mellitus with hemoglobin A1c goal of less than 7.0% (HCC)- Primary documented in this encounter Advance Directives Documents on File Type Date Recorded Patient Household Personal Assistant Expl anation POLST 11/13/2020 POLST P[place]VA [...] the patient have Health Care Power of Cane Weigher Helper? No Full Code 01/28/2022 11:14 AM 01/28/2022 4:47 PM Full Code 05/22/2021 12:38 PM 05/22/2021 5:48 PM This order reflects the patients wishes and were consensually agreed upon. Question Answer Comments Discussion of Advance Directives occurred with: Not Discussed Does the patient have a Living Will? No Does the patient have Health Care Power of Cane Weigher Helper? No Healthcare Agents on File Name Relationship Healthcare Agent Ameliaga laisha Communication Zhen Finley Spouse Health Care Agent Care Teams Radiosonde Operator Relationship Specialty Start Date End Date Luis Fernando Rojas MD [address] [place] [address] PCP - General Family Medicine 09/23/16 documented as of this encounter
--- OUTSIDE RECORDS SUMMARY | 2024-01-09 10:08 | External Medical Summary | Summary of Care ---
Author Name Unknown Organization [facility] Address [address] [place] [address] Phone [phone] Care Team Providers Care Beverage Manager Name Role Phone Luis Fernando Rojas MD Primary Care Provider [phone] Reason for Visit * Reason Onset Date Comments Patient Assistance Program 10/28/2023 Basag lar and humalog Encounter Details Date Type Department Care Team (Late st Contact Info) Description 10/28/2023 Telephone Pharmacy, [address] [address] Woody Aiken, [facility] [address] [place] [address] Patient Assistance Program (Basaglar and h... 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 10/15/2022 [facility] OTHER*[id number] 01/01/2022 S/P gastric bypass 01/01/2022 Marginal ulcer [...] Insulin long-term use 11/19/20182018 Overview: Duplicate intermediate manager (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 insulin 11/19/2018 10/08/2022 [...] T-tube placement 04/16/2017 05/29/2017 [employer] Other*[id number] 04/13/2013 08/27/2016 Overview: Study Title: Genomic Markers for Patients with Cardiovascular Disease Project # [id number] Bench Molder: Siena Laws MD [phone] Hypertensive heart disease 03/25/2013 1 07/29/2016 Neuropathy, [...] patient to get Basaglar and Humalog from [facility] PAP. Escripts sent to [facility]. Received successful confirmation of fax. Forms scanned [...] 10/30/2023 9:30 AM EDT Office Visit Orthopaedics [facility] 132 [place] [address] Edison Corcoran PA-C 132 [facility] [place] [address] 11/04/2023 10:00 AM EDT Office Visit Family [facility], [place] [address] [place] [phone] Luis Fernando Rojas MD [address] [place] [address] 11/07/2023 10:40 AM EDT Telemedicine Nutrition & Weight Management, [facility] 132 [facility] [place] [address] Katya Delaney RDN 132 [facility] [address] 11/11/2023 2:30 PM EDT Telemedicine Pharmacy, [place] [address] [place] [address] [facility] [address] [place] [address] 11/13/2023 9:40 AM EDT Office Visit Podiatry [facility] 132 [facility] [place] [address] Calli Avila, DAIANA 132 [facility] [place] [address] 01/06/2024 3:00 PM EDT Office Visit Sleep Disorders Ctr [facility] 132 [facility] [place] [address] Veena Rainey CRNP 132 [facility] [place] [address] 04/27/2024 12:20 PM EDT Office Visit Nutrition & Weight Management, [facility] [address] [place] [address] Cleo Fonseca PA-C [address] [place] [address] Scheduled Procedures Name Priority Associated Diagnoses Date/Ti [...] encounter Medical Devices Implanted Type Area Food Management Aide Device Identifier Shelf Expiration Date Model / Serial / Lot Coil Vortex 35 Pltinm [id number] - [id number] Implanted:Qty: 1 on 11/27/2021 by Sterling Cates MD [place] [facility] [place]: Upper Arm [employer] : NEURO INTR [id number] 08/15/2024 [id number] / / [id number] Coil Vortex 35 Pltinm [id number] - [id number] Implanted:Qty: 1 on 11/27/2021 by Sterling Cates MD [place] [facility] [place]: Upper Arm [employer] : NEURO INTR [id number] 08/15/2024 [id number] / / [id number] Coil Vortex 35 Pltinm 585392 - [id number] Implanted:Qty: 1 on 11/27/2021 by Sterling Cates MD at [place] [facility] [place]: Upper Arm [employer] : NEURO INTR [id number] 08/15/2024 [id number] Coil Vortex 35 Pltinm 783458 - [id number] Implanted:Qty: 1 on 11/27/2021 by Sterling Cates MD at [place] [facility] [place] Right: Upper Arm [employer] : NEURO INTR [id number] 05/16/2024 [id number] / [id number] Azur 35 Detachable 5mm 11cm - [id number] Implanted:Qty: 1 on 03/19/2022 by Jose Devine MD [place] [facility] [place]: Wrist [employer] MED[employer]AT [id number] 10/18/2025 [id number] / / [id number] Azur 35 Detachable 5mm 11cm - [id number] Implanted:Qty: 1 on 03/19/2022 by Jose Devine MD at [place] [facility] [place] Right: Wrist [employer] [id number] 06/19/2026 [id number] / / [id number] Mesh Flat Sheet 10x14 [id number] - [id number] Implanted:Qty: 1 on 12/11/2022 by Eros Dash MD at [place] [facility] [place] N/A: Abdomen CR BARD : DAVOL [id number] 06/17/2027 [id number] / / [id number] documented as of this encounter Visit Diagnoses Diagnosis Type 2 diabetes mellitus with hemoglobin A1c goal of less than 7.0% (HCC)- Primary documented in this encounter Advance Directives Documents on File Type Date Recorded Patient Passenger Service Manager Expl anation POLST 11/13/2020 POLST [place]VA [...] the patient have Health Care Power of Supervisor Pipe Joints? No Full Code 01/28/2022 11:14 AM 01/28/2022 4:47 PM Full Code 05/22/2021 12:38 PM 05/22/2021 5:48 PM This order reflects the patients wishes and were consensually agreed upon. Question Answer Comments Discussion of Advance Directives occurred with: Not Discussed Does the patient have a Living Will? No Does the patient have Health Care Power of Supervisor Pipe Joints? No Healthcare Agents on File Name Relationship Healthcare Agent Ameliapr laisha Communication Zhen Finley Spouse Health Care Agent Care Teams Beverage Manager Relationship Specialty Start Date End Date Luis Fernando Rojas MD [address] [place] [address] PCP - General Family Medicine 09/23/16 documented as of this encounter
--- OUTSIDE RECORDS SUMMARY | 2024-01-09 10:08 | External Medical Summary | Summary of Care ---
Author Name Unknown Organization [facility] Address [address] [place] [address] Phone [phone] Care Team Providers Care Take Up Supervisor Name Role Phone Luis Fernando Rojas MD Primary Care Provider [phone] Reason for Visit * Reason Onset Date Comments Order Request 10/22/2023 Re: CPAP supplie s Encounter Details Date Type Department Care Team (Late st Contact Info) Description 10/22/2023 Telephone Pulmonary Medicine, [facility] [address] [place] [address] Kelsey Garcia, [address] [place] [address] Order Request (Re: CPAP supplies) Allergies Active Allergy Reactions Criticality Noted Date Comments Salvador Inhibitors Other (Please comment) High 0 HyperKalemia documented as of this encounter (statuses as of 10/27/2023) Medications Medication Sig Dispensed Refills Start Date [...] EVENING 90 Tablet 3 09/10/2023 5 Active Insulin Glargine Solostar 100 UNIT/ML Subcutaneous Solution Pen-injector (Lantus SoloStar)Indicatio ns:Type 2 diabetes mellitus with hemoglobin A1c goal of less than 7.0% (HCC) Inject 16 Units under the skin in the morning. 30 mL 3 10/14/2023 Active NovoLOG FlexPen 100 UNIT/ML Subcutaneous Solution Pen-injector (insulin aspart)Indications :Type 2 diabetes mellitus with hemoglobin A1c goal of less than 7.0% (HCC) Inject 14 units with breakfast, 4 units with lunch, and 16 units with supper + CF 1:25 over 150. Follow chart provided by MTM on 10/14/23 45 mL 3 10/14/2023 Active Semaglutide(0.25 or 0.5MG/DOS) 2 MG/3ML Solution Pen-injector (Ozempic)Indicatio ns:Type 2 diabetes mellitus with hemoglobin A1c goal of less than 7.0% (HCC) Inject 0.25 mg under the skin for 4 weeks, then increase to 0.5 mg weekly thereafter 3 mL 3 10/20/2023 Active Hospital, Clinic, or Other Facility Administered Medication Ordered Dose Route Frequency Start Date End Date Status vitamin b-12 (Cyanocobalamin) inj 1,000 mcgIndications:S/P gastric bypass 1000 mcg IM [id number] 10/15/2022 07/19/2025 Active vitamin b-12 (Cyanocobalamin) inj 1,000 mcgIndications:Morbid obesity with BMI of 40.0-44.9, adult (HCC),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 [id number] 10/17/2023 12/11/19 25 Active documented as of this encounter (statuses as of 10/27/2023) Active Problems Problem Noted Date Diagnosed Date [...] 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 10/15/2022 [facility] OTHER*[id number] 01/01/2022 S/P gastric bypass 01/01/2022 Marginal ulcer [...] as of this encounter (statuses as of 10/27/2023) Resolved Problems Problem Noted Date Diagnosed Date [...] 10/08/2022 Insulin long-term use 11/19/20182018 Overview: Duplicate retirement (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 insulin 11/19/2018 10/08/2022 Morbid [...] T-tube placement 04/16/2017 05/29/2017 [employer] [facility] Other*[id number] 04/13/2013 08/27/2016 Overview: Study Title: Genomic Markers for Patients with Cardiovascular Disease Project # [id number] Laborer Plumbing: Siena Laws MD [phone] Hypertensive heart disease 03/25/2013 1 07/29/2016 Neuropathy, [...] as of this encounter (statuses as of 10/27/2023) Immunizations Name Administration Dates Next Due COVID-19 [...] encounter Miscellaneous Notes * Telephone Encounter - Yasmin Calvert LPN - 10/27/2023 2:29 PM EDT LM asking pt to return call. * Telephone Encounter - Kelsey Garcia DO - 10/24/2023 2:47 PM EDT Presumably this is the order placed at our 08/05 appt for CPAP supplies with change in DME to [facility], which patient had requested. Can we confirm with patient that she still wants to work with [facility] for supplies? If so, ensure she has their contact info, and ask TH to re-instate the order. * Telephone Encounter - Sakina Huang OSA - 10/22/2023 7:37 AM EDT From [facility]: thank you for submitting this order to [...] 9:30 AM EDT Office Visit Orthopaedics [facility] [address] [place] [address] Edison Corcoran PA-C [address] [place] [address] 11/04/2023 10:00 AM EDT Office Visit [facility] [address] [place] [address] Luis Fernando Rojas MD [address] [place] [address] 11/07/2023 10:40 AM EDT Telemedicine Nutrition & Weight Management, [facility] [address] [place] [address] Katya Delaney RDN [address] [place] [address] 11/11/2023 2:30 PM EDT Telemedicine Pharmacy, [place] [address] [facility] [place] [address] [place], [facility] [address] [facility], [place] [address] 11/13/2023 9:40 AM EDT Office Visit Podiatry [facility] [address] [place] [address] Calli Avila, DAIANA [address] [place] [address] 01/06/2024 3:00 PM EDT Office Visit Sleep Disorders Ctr [facility] 132 [facility] [place] [phone] Veena Rainey CRNP [address] [place] [address] 04/27/2024 12:20 PM EDT Office Visit Nutrition & Weight Management, [facility] [place] [address] Cleo Fonseca PA-C [address] [place] [address] Scheduled Procedures Name Priority Associated Diagnoses Date/Ti [...] this encounter Medical Devices Implanted Type Area Lieutenant Fire Fighter Device Identifier Shelf Expiration Date Model / Serial / Lot Coil Vortex 35 Pltinm [id number] - [id number] Implanted:Qty: 1 on 11/27/2021 by Sterling Cates MD at [place] [facility] Right: Upper Arm [employer] : NEURO INTR [id number] 08/15/2024 [id number] Coil Vortex 35 Pltinm 929554 - [id number] Implanted:Qty: 1 on 11/27/2021 by Sterling Cates MD at [place] [facility] Right: Upper Arm [employer] : NEURO INTR [id number] 08/15/2024 [id number] / / [id number] Coil Vortex 35 Pltinm 884234 - [id number] Implanted:Qty: 1 on 11/27/2021 by Sterling Cates MD at [place] [facility] Right: Upper Arm [employer] : NEURO INTR [id number] 08/15/2024 [id number] / / [id number] Coil Vortex 35 Pltinm 302609 - [id number] Implanted:Qty: 1 on 11/27/2021 by Sterling Cates MD at [place] [facility] Right: Upper Arm [employer] : NEURO INTR [id number] 05/16/2024 [id number] / / [id number] Azur 35 Detachable 5mm 11cm - [id number] Implanted:Qty: 1 on 03/19/2022 by Jose Devine MD at [place] [facility] Right: Wrist [employer] [id number] 10/18/2025 [id number] / / [id number] Azur 35 Detachable 5mm 11cm - [id number] Implanted:Qty: 1 on 03/19/2022 by Jose Devine MD at [place] [facility] Right: Wrist [employer] [id number] 06/19/2026 [id number] / / [id number] Mesh Flat Sheet 10x14 [id number] - [id number] Implanted:Qty: 1 on 12/11/2022 by Eros Dash MD at [place] [facility] N/A: Abdomen CR BARD : DAVOL [id number] 06/17/2027 [id number] / / [id number] documented as of this encounter Advance Directives Documents on File Type Date Recorded Patient Sound Cutter Expl anation POLST 11/13/2020 POLST PENNSYLVA VALERIA [...] the patient have Health Care Power of Screen Printing Inspector? No Full Code 01/28/2022 11:14 AM 01/28/2022 4:47 PM Full Code 05/22/2021 12:38 PM 05/22/2021 5:48 PM This order reflects the patients wishes and were consensually agreed upon. Question Answer Comments Discussion of Advance Directives occurred with: Not Discussed Does the patient have a Living Will? No Does the patient have Health Care Power of Screen Printing Inspector? No Healthcare Agents on File Name Relationship Healthcare Agent [facility] Communication Zhen Finley Spouse Health Care Agent Care Teams Take Up Supervisor Relationship Specialty Start Date End Date Luis Fernando Rojas MD [address] [place] [address] PCP - General Family Medicine 09/23/16 documented as of this encounter
--- OUTSIDE RECORDS SUMMARY | 2024-01-09 10:08 | External Medical Summary | Summary of Care ---
Author Name Unknown Organization [facility] Address [address] [place] [address] Phone [phone] Care Team Providers Care Flame Brazing Machine Operator Name Role Phone Luis Fernando Rojas MD Primary Care Provider [phone] Reason for Visit * Reason Onset Date Comments Patient Assistance Program 10/28/2023 Basag lar and humalog Encounter Details Date Type Department Care Team (Late st Contact Info) Description 10/28/2023 Telephone Pharmacy, [address] [address] Woody Aiken, [facility] [address] [place] [address] Patient Assistance Program (Basaglar and h... 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 11/19/2018 10/08/2022 [...] T-tube placement 04/16/2017 05/29/2017 [employer] Other*[id number] 04/13/2013 08/27/2016 Overview: Study Title: Genomic Markers for Patients with Cardiovascular Disease Project # [id number] Alarm Technician: Siena Lasw MD [phone] Hypertensive heart disease 03/25/2013 1 07/29/2016 Neuropathy, [...] Notes * Addendum Note - Woody Aiken [facility] - 10/28/2023 10:44 AM EDT Addended by: WOODY AIKEN on: 10/28/2023 10:44 AM Modules accepted: Orders * Addendum Note - Woody Aiken [facility] - 10/28/2023 9:41 AM EDTAddended by: WOODY AIKEN on: 10/28/2023 09:41 AM Modules accepted: Orders * Telephone Encounter - Woody Aiken RP - 10/28/2023 9:33 AM EDT Filled out and faxed enrollment forms for patient to get Basaglar and Humalog from [facility]. [facility]scripts sent to [facility]. Received successful confirmation of fax. Forms scanned into chart. Diabetes regimen: DEC Lantus 16 units daily [will be replaced by BASAGLAR] ADJ Novolog 02-11-15 with respective meals + CF 1:25 over [...] 10/30/2023 9:30 AM EDT Office Visit [facility]ed[facility] [place] [address] Edison Corcoran PA-C [address] [place] [address] 11/04/2023 10:00 AM EDT Office Visit Family [facility], [place] [address] [place] [address] Luis Fernando Rojas MD [address] [place] [address] 11/07/2023 10:40 AM EDT Telemedicine Nutrition & Weight Management, [facility] [address] [facility] [place] [address] Katya Delaney RDN [facility] [place] [address] 11/11/2023 2:30 PM EDT Telemedicine Pharmacy, [place] [address] [place] [address] [facility] [address] [place] [address] 11/13/2023 9:40 AM EDT Office Visit Podiatry [facility] [address] [facility] [place] [address] Calli Avila DPM [facility] [place] [address] 01/06/2024 3:00 PM EDT Office Visit Sleep Disorders Ctr [facility] [address] [place] [address] Veena Rainey CRNP [address] [place] [address] 04/27/2024 12:20 PM EDT Office Visit Nutrition & Weight Management, [facility] [address] [place] [address] Cleo Fonseca PA-C [address] [place] [address] Scheduled Procedures Name Priority Associated Diagnoses Date/Ti [...] this encounter Medical Devices Implanted Type Area Land Acquisition Specialist Device Identifier Shelf Expiration Date Model / Serial / Lot Coil Vortex 35 Pltinm [id number] - [id number] Implanted:Qty: 1 on 11/27/2021 by Sterling Cates MD at OR [facility] Right: Upper Arm [employer] : NEURO INTR [id number] 08/15/2024 [id number] Coil Vortex 35 Pltinm [id number] - [id number] Implanted:Qty: 1 on 11/27/2021 by Sterling Cates MD at OR [facility] Right: Upper Arm [employer] : NEURO INTR [id number] 08/15/2024 [id number] Coil Vortex 35 Pltinm [id number] - [id number] Implanted:Qty: 1 on 11/27/2021 by Sterling Cates MD at OR [facility] Right: Upper Arm [employer] : NEURO INTR [id number] 08/15/2024 [id number] Coil Vortex 35 Pltinm [id number] - [id number] Implanted:Qty: 1 on 11/27/2021 by Sterling Cates MD at OR [facility] Right: Upper Arm [employer] : NEURO INTR [id number] 05/16/2024 [id number] Azur 35 Detachable 5mm 11cm - [id number] Implanted:Qty: 1 on 03/19/2022 by Jose Devine MD at OR [facility] Right: Wrist [employer] [id number] 10/18/2025 [id number] / / [id number] Azur 35 Detachable 5mm 11cm - [id number] Implanted:Qty: 1 on 03/19/2022 by Jose Devine MD at OR [facility] Right: Wrist [employer] [id number] 06/19/2026 [id number] / / [id number] Mesh Flat Sheet 10x14 [id number] - [id number] Implanted:Qty: 1 on 12/11/2022 by Eros Dash MD at OR [facility] N/A: Abdomen CR BARD : DAVOL [id number] 06/17/2027 [id number] / / [id number] documented as of this encounter Visit Diagnoses Diagnosis Type 2 diabetes mellitus with hemoglobin A1c goal of less than 7.0% (HCC)- Primary documented in this encounter Advance Directives Documents on File Type Date Recorded Patient High School Band Director Expl anation POLST 11/13/2020 POLST FLAKITOA VALERIA ORDERS FOR LIFE-SUSTAINING [...] the patient have Health Care Power of Garment Sewer Hand? No Full Code 01/28/2022 11:14 AM 01/28/2022 4:47 PM Full Code 05/22/2021 12:38 PM 05/22/2021 5:48 PM This order reflects the patients wishes and were consensually agreed upon. Question Answer Comments Discussion of Advance Directives occurred with: Not Discussed Does the patient have a Living Will? No Does the patient have Health Care Power of Garment Sewer Hand? No Healthcare Agents on File Name Relationship Healthcare Agent [facility] p Communication Zhen Finley Spouse Health Care Agent Care Teams Flame Brazing Machine Operator Relationship Specialty Start Date End Date Luis Fernando Rojas MD [address], [place] [id number] PCP - General Family Medicine 09/23/16 documented as of this encounter
--- OUTSIDE RECORDS SUMMARY | 2024-01-09 10:09 | External Medical Summary | Summary of Care ---
Author Name Unknown Organization [facility] Address [address] [place] [address] Phone [phone] Care Team Providers Care Flour Tester Name Role Phone Luis Fernando Rojas MD Primary Care Provider [phone] Encounter Details Date Type Department Care Team (Late st Contact Info) Description 10/23/2023 Patient Reported Data Patient Survey Ortho OBERD Allergies Active Allergy Reactions Criticality Noted Date Comments Salvador Inhibitors Other (Please comment) High 0 HyperKalemia documented as of this encounter (statuses as of 10/23/2023) Medications Medication Sig Dispensed Refills Start Date [...] directed. Replace every 14 days (supplied [place] [facility] 7 Each 3 05/17/2021 Active CPAP every [...] Active Atorvastatin Calcium 40 MG Oral Tablet (Lipitor)Caitietio ns:Dyslipidemia, goal LDL below 100 TAKE ONE [...] 1:25 over 150. 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 Magallanes. 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 11/19/2018 10/08/2022 Morbid [...] T-tube placement 04/16/2017 05/29/2017 [employer] Other*[id number] 04/13/2013 08/27/2016 Overview: Study Title: Genomic Markers for Patients with Cardiovascular Disease Project # [id number] Pharmacy Clerk: Siena Laws MD [phone] Hypertensive heart disease 03/25/2013 1 07/29/2016 Neuropathy, [...] as of this encounter (statuses as of 10/23/2023) Immunizations Name Administration Dates Next Due COVID-19 [...] 9:30 AM EDT Office Visit Orthopaedics [facility] [address] [place] [address] Edison Corcoran PA-C [address] [place] [address] 11/04/2023 10:00 AM EDT Office Visit Family [facility] [address] [facility] [phone] Luis Fernando Rojas MD [address] [place] [place] [address] 11/07/2023 10:40 AM EDT Telemedicine Nutrition & Weight Management, [facility] [address] [facility] [place] [address] Katya Delaney, JOSE [address] [place] [address] 11/11/2023 2:30 PM EDT Telemedicine Pharmacy, [place] [address] [address] [facility] [place] [address] [facility] [address] [facility] [place] [address] 11/13/2023 9:40 AM EDT Office Visit Podiatry [facility] 132 [facility] [place] [address] Calli Avila, [facility] [address] [place] [address] 01/06/2024 3:00 PM EDT Office Visit Sleep Disorders Ctr [facility] [address] [facility] [place] [phone] Veena Rainey CRNP [address] [facility] [place] [address] 04/27/2024 12:20 PM EDT Office Visit Nutrition & Weight Management, [facility] [address] [facility] [place] [address] Cleo Fonseca PA-C [address] [facility] [place] [address] Scheduled Procedures Name Priority Associated Diagnoses Date/Ti [...] 07/08/2024 07/08/2023, 03/22, 04/18/2022, Additional history exists Depression Screening 08/14/2024 08/14/2023 COLONOSCOPY-EVERY 5 YRS AGES 18-100 02/28/2028 02/27/2023, [...] this encounter Medical Devices Implanted Type Area Marketing Co Op Device Identifier Shelf Expiration Date Model / Serial / Lot Coil Vortex 35 Pltinm [id number] - [id number] Implanted:Qty: 1 on 11/27/2021 by Sterling Cates MD at [place] [facility] [place] Right: Upper Arm [employer] : NEURO INTR [id number] 08/15/2024 [id number] / / [id number] Coil Vortex 35 Pltinm 325161 - [id number] Implanted:Qty: 1 on 11/27/2021 by Sterling Cates MD at OR [facility] Right: Upper Arm [employer] : NEURO INTR [id number] 08/15/2024 [id number] / / [id number] Coil Vortex 35 Pltinm [id number] - [id number] Implanted:Qty: 1 on 11/27/2021 by Sterling Cates MD at OR [facility] Right: Upper Arm [employer] : NEURO INTR [id number] 08/15/2024 [id number] / / [id number] Coil Vortex 35 Pltinm [id number] - [id number] Implanted:Qty: 1 on 11/27/2021 by Sterling Cates MD at OR [facility] Right: Upper Arm [employer] : NEURO INTR [id number] 05/16/2024 [id number] / / [id number] Azur 35 Detachable 5mm 11cm - [id number] Implanted:Qty: 1 on 03/19/2022 by Jose Devine MD at OR [facility] Right: Wrist [employer] [id number] 10/18/2025 [id number] / / [id number] Azur 35 Detachable 5mm 11cm - [id number] Implanted:Qty: 1 on 03/19/2022 by Jose Devine MD at OR [facility] Right: Wrist [employer] [id number] 06/19/2026 [id number] / / [id number] Mesh Flat Sheet 10x14 [id number] - [id number] Implanted:Qty: 1 on 12/11/2022 by Eros Dash MD at OR [facility] N/A: Abdomen CR BARD : DAVOL [id number] 06/17/2027 [id number] / / [id number] documented as of this encounter Advance Directives Documents on File Type Date Recorded Patient Electrician Rectifier Maintenance Expl anation POLST 11/13/2020 POLST PENNSYLVA VALERIA [...] the patient have Health Care Power of Registered Medical Transcriptionist? No Full Code 01/28/2022 11:14 AM 01/28/2022 4:47 PM Full Code 05/22/2021 12:38 PM 05/22/2021 5:48 PM This order reflects the patients wishes and were consensually agreed upon. Question Answer Comments Discussion of Advance Directives occurred with: Not Discussed Does the patient have a Living Will? No Does the patient have Health Care Power of Registered Medical Transcriptionist? No Healthcare Agents on File Name Relationship Healthcare Agent Relationshi p Communication Zhen Finley Spouse Health Care Agent Care Teams Flour Tester Relationship Specialty Start Date End Date Luis Fernando Rojas MD [address] [place] [address] PCP - General Family Medicine 09/23/16 documented as of this encounter
--- OUTSIDE RECORDS SUMMARY | 2024-01-09 10:09 | External Medical Summary | Summary of Care ---
Author Name Unknown Organization [facility] Address [address] [place] [address] Phone [phone] Care Team Providers Care Web Solutions Architect Name Role Phone Luis Fernando Rojas MD Primary Care Provider [phone] Encounter Details Date Type Department Care Team [...] directed. 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 10/15/2022 MORFIN RESEARCH OTHER*[id number] 01/01/2022 S/P gastric bypass 01/01/2022 Marginal ulcer [...] Insulin long-term use 11/19/20182018 Overview: 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 11/19/2018 10/08/2022 Morbid [...] T-tube placement 04/16/2017 05/29/2017 [employer] Other*[id number] 04/13/2013 08/27/2016 Overview: Study Title: Genomic Markers for Patients with Cardiovascular Disease Project # [id number] Wire Galvanizer: Siena Laws MD [phone] Hypertensive heart disease 03/25/2013 1 07/29/2016 Neuropathy, [...] 10/30/2023 9:30 AM EDT Office Visit Orthopaedics [facility] [address] [place] [address] Edison Corcoran PA-C [address] [place] [address] 11/04/2023 10:00 AM EDT Office Visit Family [facility] [address] [facility] [phone] Luis Fernando Rojas MD [address] [facility] [place] [address] 11/07/2023 10:40 AM EDT Telemedicine Nutrition & Weight Management, [facility] [place] [address] Katya Delaney, JOSE [address] [place] [address] 11/11/2023 2:30 PM EDT Telemedicine Pharmacy, [place] [address] [address] [facility] [place] [address] [facility] [address] [facility] [place] [address] 11/13/2023 9:40 AM EDT Office Visit Podiatry [facility] 132 [facility] [place] [address] Calli Avila, [facility] [address] [place] [address] 01/06/2024 3:00 PM EDT Office Visit Sleep Disorders Ctr [facility] [address] [facility] [place] [phone] Veena Rainey CRNP [address] [facility] [place] [address] 04/27/2024 12:20 PM EDT Office Visit Nutrition & Weight Management, [facility] [address] [facility] [place] [address] Cleo Fonseca PA-C [address] [facility] [place] [address] Scheduled Procedures Name Priority Associated Diagnoses Date/Ti [...] this encounter Medical Devices Implanted Type Area Iron Launder Operator Device Identifier Shelf Expiration Date Model / Serial / Lot Coil Vortex 35 Pltinm [id number] - [id number] Implanted:Qty: 1 on 11/27/2021 by Sterling Cates MD at [place] [facility] Right: Upper Arm [employer] : NEURO INTR [id number] 08/15/2024 [id number] 1 / / [id number] Coil Vortex 35 Pltinm [id number] - [id number] Implanted:Qty: 1 on 11/27/2021 by Sterling Cates MD at [place] [facility] Right: Upper Arm [employer] : NEURO INTR [id number] 08/15/2024 [id number] 1 / / [id number] Coil Vortex 35 Pltinm [id number] - [id number] Implanted:Qty: 1 on 11/27/2021 by Sterling Cates MD at [place] [facility] Right: Upper Arm [employer] : NEURO INTR [id number] 08/15/2024 [id number] 1 / / [id number] Coil Vortex 35 Pltinm [id number] - [id number] Implanted:Qty: 1 on 11/27/2021 by Sterling Cates MD at [place] [facility] Right: Upper Arm [employer] : NEURO INTR [id number] 05/16/2024 [id number] / / [id number] Azur 35 Detachable 5mm 11cm - [id number] Implanted:Qty: 1 on 03/19/2022 by Jose Devine MD at [place] [facility] Right: Wrist [employer] [id number] 10/18/2025 [id number] / / [id number] Azur 35 Detachable 5mm 11cm - [id number] Implanted:Qty: 1 on 03/19/2022 by Jose Devine MD at [place] [facility] Right: Wrist [employer] [id number] 06/19/2026 [id number] / / [id number] Mesh Flat Sheet 10x14 [id number] - [id number] Implanted:Qty: 1 on 12/11/2022 by Eros Dash MD at [place] [facility] N/A: Abdomen CR BARD : DAVOL [id number] 06/17/2027 [id number] / / [id number] documented as of this encounter Advance Directives Documents on File Type Date Recorded Patient Instructional Leader Expl anation POLST 11/13/2020 POLST PENNSYLVA VALERIA [...] the patient have Health Care Power of Family Practice Physician? No Full Code 01/28/2022 11:14 AM 01/28/2022 4:47 PM Full Code 05/22/2021 12:38 PM 05/22/2021 5:48 PM This order reflects the patients wishes and were consensually agreed upon. Question Answer Comments Discussion of Advance Directives occurred with: Not Discussed Does the patient have a Living Will? No Does the patient have Health Care Power of Family Practice Physician? No Healthcare Agents on File Name Relationship Healthcare Agent Relationshi p Communication Zhen Finley Spouse Health Care Agent Care Teams Web Solutions Architect Relationship Specialty Start Date End Date Luis Fernando Rojas MD [address] [place] [address] PCP - General Family Medicine 09/23/16 documented as of this encounter
--- OUTSIDE RECORDS SUMMARY | 2024-01-09 10:09 | External Medical Summary | Summary of Care ---
Author Name Unknown Organization [facility] Address [address] [place] [address] Phone [phone] Care Team Providers Care Object Oriented Developer Name Role Phone Luis Fernando Rojas MD Primary Care Provider [phone] Encounter Details Date Type Department Care Team [...] food. 90 Tab 3 02/16/2021 Active FreeStyle Jeninfer 2 Sensor Use as directed. 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 10/15/2022 [facility] OTHER*[id number] 01/01/2022 S/P gastric bypass 01/01/2022 Marginal ulcer [...] Insulin long-term use 11/19/20182018 Overview: 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 11/19/2018 10/08/2022 Morbid [...] T-tube placement 04/16/2017 05/29/2017 [facility] Other*[id number] 04/13/2013 08/27/2016 Overview: Study Title: Genomic Markers for Patients with Cardiovascular Disease Project # [id number] Operating Room Orderly: Siena Laws MD [phone] Hypertensive heart disease 03/25/2013 1 07/29/2016 Neuropathy, [...] 10/30/2023 9:30 AM EDT Office Visit Orthopaedics [facility] [address] [place] [address] Edison Corcoran PA-C [address] [place] [address] 11/04/2023 10:00 AM EDT Office Visit Family [facility] [address] [facility] [phone] Luis Fernando Rojas MD [address] [place] [facility] [place] [address] 11/07/2023 10:40 AM EDT Telemedicine Nutrition & Weight Management, [facility] [address] [facility] [place] [address] Katya Delaney, JOSE [address] [place] [address] 11/11/2023 2:30 PM EDT Telemedicine Pharmacy, [place] [address] [facility] [place] [address] [facility] [address] [facility] [place] [address] 11/13/2023 9:40 AM EDT Office Visit Podiatry [facility] [address] [facility] [place] [address] Calli Avila, [facility] [address] [place] [address] 01/06/2024 3:00 PM EDT Office Visit Sleep Disorders Ctr [facility] [address] [facility] [place] [phone] Veena Rainey CRNP [address] [facility] [place] [address] 04/27/2024 12:20 PM EDT Office Visit Nutrition & Weight Management, [facility] [address] [facility] [place] [address] Cleo Fonseca PA-C [address] [facility] [place] [address] Scheduled Procedures Name Priority Associated Diagnoses Date/Ti [...] this encounter Medical Devices Implanted Type Area Sales Agent Pest Control Service Device Identifier Shelf Expiration Date Model / Serial / Lot Coil Vortex 35 Pltinm [id number] - [id number] Implanted:Qty: 1 on 11/27/2021 by Sterling Cates MD at [place] [facility] Right: Upper Arm [employer] : NEURO INTR [id number] 08/15/2024 [id number] 1 / / [id number] Coil Vortex 35 Pltinm [id number] - [id number] Implanted:Qty: 1 on 11/27/2021 by Sterling Cates MD at OR [facility] Right: Upper Arm [employer] : NEURO INTR [id number] 08/15/2024 [id number] 1 / / [id number] Coil Vortex 35 Pltinm [id number] - [id number] Implanted:Qty: 1 on 11/27/2021 by Sterling Cates MD at OR [facility] Right: Upper Arm [employer] : NEURO INTR [id number] 08/15/2024 [id number] 1 / / [id number] Coil Vortex 35 Pltinm 608935 - [id number] Implanted:Qty: 1 on 11/27/2021 by Sterling Cates MD at OR [facility] Right: Upper Arm [employer] : NEURO INTR [id number] 05/16/2024 [id number] 1 / / [id number] Azur 35 Detachable 5mm 11cm - [id number] Implanted:Qty: 1 on 03/19/2022 by Jose Devine MD at OR [facility] Right: Wrist [employer] [id number] 10/18/2025 [id number] / / [id number] Azur 35 Detachable 5mm 11cm - [id number] Implanted:Qty: 1 on 03/19/2022 by Jose Devine MD at OR [facility] Right: Wrist [employer] [id number] 06/19/2026 [id number] / / [id number] Mesh Flat Sheet 10x14 [id number] - [id number] Implanted:Qty: 1 on 12/11/2022 by Eros Dash MD at OR [facility] N/A: Abdomen CR BARD : DAVOL [id number] 06/17/2027 [id number] / / [id number] documented as of this encounter Advance Directives Documents on File Type Date Recorded Patient Faculty Support Coordinator Expl anation POLST 11/13/2020 POLST PENNSYLVA VALERIA [...] the patient have Health Care Power of Fish Header? No Full Code 01/28/2022 11:14 AM 01/28/2022 4:47 PM Full Code 05/22/2021 12:38 PM 05/22/2021 5:48 PM This order reflects the patients wishes and were consensually agreed upon. Question Answer Comments Discussion of Advance Directives occurred with: Not Discussed Does the patient have a Living Will? No Does the patient have Health Care Power of Fish Header? No Healthcare Agents on File Name Relationship Healthcare Agent Relationshi p Communication Zhen Finley Spouse Health Care Agent Care Teams Object Oriented Developer Relationship Specialty Start Date End Date Luis Fernando Rojas MD [address] [place] [address] PCP - General Family Medicine 09/23/16 documented as of this encounter
--- OUTSIDE RECORDS SUMMARY | 2024-01-09 10:09 | External Medical Summary | Summary of Care ---
Author Name Unknown Organization [facility] Address [address] [place] [address] Phone [phone] Care Team Providers Care Spare Hand Name Role Phone Luis Fernando Rojas MD Primary Care Provider [phone] Encounter Details Date Type Department Care Team [...] directed. 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 10/15/2022 [facility] RESE[facility] OTHER*[id number] 01/01/2022 S/P gastric bypass 01/01/2022 Marginal ulcer [...] 10/08/2022 Insulin long-term use 11/19/20182018 Overview: 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 [address] [facility] [phone] Luis Fernando Rojas MD [address] [place] [address] 11/07/2023 10:40 AM EDT Telemedicine Nutrition & Weight Management, [facility] [place] [address] Katya Delaney, JOSE [address] [place] [address] 11/11/2023 2:30 PM EDT Telemedicine Pharmacy, [place] [address] [address] [facility] [place] [address] [facility] [address] [facility] [place] [address] 11/13/2023 9:40 AM EDT Office Visit Podiatry [facility] [address] [facility] [place] [address] Calli Avila, [facility] [address] [place] [address] 01/06/2024 3:00 PM EDT Office Visit Sleep Disorders Ctr [facility] [address] [facility] [place] [phone] Veena Rainey CRNP [address] [facility] [place] [address] 04/27/2024 12:20 PM EDT Office Visit Nutrition & Weight Management, [facility] [address] [facility] [place] [address] Cleo Fonseca PA-C [address] [facility] [place] [address] Scheduled Procedures Name Priority Associated Diagnoses Date/Ti [...] this encounter Medical Devices Implanted Type Area Voice Engineer Device Identifier Shelf Expiration Date Model / Serial / Lot Coil Vortex 35 Pltinm [id number] - [id number] Implanted:Qty: 1 on 11/27/2021 by Sterling Cates MD at [place] [facility] Right: Upper Arm [employer] : NEURO INTR [id number] 08/15/2024 [id number] 1 / / [id number] Coil Vortex 35 Pltinm [id number] - [id number] Implanted:Qty: 1 on 11/27/2021 by Sterling Cates MD at OR [facility] Right: Upper Arm [employer] : NEURO INTR [id number] 08/15/2024 [id number] 1 / / [id number] Coil Vortex 35 Pltinm 206687 - [id number] Implanted:Qty: 1 on 11/27/2021 by Sterling Cates MD at OR [facility] Right: Upper Arm [employer] : NEURO INTR [id number] 08/15/2024 [id number] 1 / / [id number] Coil Vortex 35 Pltinm 661734 - [id number] Implanted:Qty: 1 on 11/27/2021 by Sterling Cates MD at OR [facility] Right: Upper Arm [employer] : NEURO INTR [id number] 05/16/2024 [id number] 1 / / [id number] Azur 35 Detachable 5mm 11cm - [id number] Implanted:Qty: 1 on 03/19/2022 by Jose Devine MD at OR [facility] Right: Wrist [employer] [id number] 10/18/2025 [id number] / / [id number] Azur 35 Detachable 5mm 11cm - [id number] Implanted:Qty: 1 on 03/19/2022 by Jose Devine MD at OR [facility] Right: Wrist [employer] [id number] 06/19/2026 [id number] / / [id number] Mesh Flat Sheet 10x14 [id number] - [id number] Implanted:Qty: 1 on 12/11/2022 by Eros Dash MD at OR [facility] N/A: Abdomen CR BARD : DAVOL [id number] 06/17/2027 [id number] / / [id number] documented as of this encounter Advance Directives Documents on File Type Date Recorded Patient Sweet Pickle Maker Expl anation POLST 11/13/2020 POLST PENNSYLVA VALERIA [...] patient have Health Care Power of Supervisor Last Model Department? No Full Code 01/28/2022 11:14 AM 01/28/2022 4:47 PM Full Code 05/22/2021 12:38 PM 05/22/2021 5:48 PM This order reflects the patients wishes and were consensually agreed upon. Question Answer Comments Discussion of Advance Directives occurred with: Not Discussed Does the patient have a Living Will? No Does the patient have Health Care Power of Supervisor Last Model Department? No Healthcare Agents on File Name Relationship Healthcare Agent Relationshi p Communication Zhen Finley Spouse Health Care Agent Care Teams Spare Hand Relationship Specialty Start Date End Date Luis Fernando Rojas MD [address] [place] [address] PCP - General Family Medicine 09/23/16 documented as of this encounter
--- OUTSIDE RECORDS SUMMARY | 2024-01-09 10:09 | External Medical Summary | Summary of Care ---
Author Name Unknown Organization [facility] Address [address] [place] [address] Phone [phone] Care Team Providers Care Computer Technical Support Specialist Name Role Phone Luis Fernando Rojas MD Primary Care Provider [phone] Encounter Details Date Type Department Care Team (Late st Contact Info) Description 10/22/2023 Telephone Pulmonary Medicine, [facility] [address] [place] [address] Kelsey Garcia, [address] [place] [address] Allergies Active Allergy Reactions Criticality Noted Date Comments Salvador Inhibitors Other (Please comment) High 0 HyperKalemia documented as of this encounter (statuses as of 10/24/2023) Medications Medication Sig Dispensed Refills Start Date [...] 1,000 mcgIndications:S/P gastric bypass 1000 mcg IM [id number] 10/15/2022 07/19/2025 Active vitamin b-12 (Cyanocobalamin) inj 1,000 mcgIndications:Morbid obesity with BMI of 40.0-44.9, adult (HCC),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 [id number] 10/17/2023 12/11/19 25 Active documented as of this encounter (statuses as of 10/24/2023) Active Problems Problem Noted Date Diagnosed Date [...] 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 10/15/2022 [facility] RESEARCH OTHER*[id number] 01/01/2022 S/P gastric bypass 01/01/2022 Marginal ulcer [...] as of this encounter (statuses as of 10/24/2023) Resolved Problems Problem Noted Date Diagnosed Date [...] 10/08/2022 Insulin long-term use 11/19/20182018 Overview: 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 11/19/2018 10/08/2022 [...] T-tube placement 04/16/2017 05/29/2017 [facility] Other*[id number] 04/13/2013 08/27/2016 Overview: Study Title: Genomic Markers for Patients with Cardiovascular Disease Project # [id number] Grader Marker: Siena Laws MD [phone] Hypertensive heart disease 03/25/2013 1 07/29/2016 Neuropathy, [...] as of this encounter (statuses as of 10/24/2023) Immunizations Name Administration Dates Next Due COVID-19 [...] Miscellaneous Notes * Telephone Encounter - Kelsey Garcia DO - 10/24/2023 2:47 PM EDT Presumably this is the order placed at our 08/05 appt for CPAP supplies with change in DME to [facility], which patient had requested. Can we confirm with patient that she still wants to work with [facility] for supplies? If so, ensure she has their contact info, and ask TH to re-instate the order. * Telephone Encounter - Sakina Huang OSA - 10/22/2023 7:37 AM EDT From [facility]: thank you for submitting this order to [...] 10/30/2023 9:30 AM EDT Office Visit Orthopaedics [facility] [address] [facility] [place] [address] Edison Corcoran PA-C [address] [facility] [place] [address] 11/04/2023 10:00 AM EDT Office Visit Family [place] [address] [address] [facility] [address] Luis Fernando Rojas MD [address] [place] [address] 11/07/2023 10:40 AM EDT Telemedicine Nutrition & Weight Management, [facility] [address] [facility] [place] [address] Katya Delaney RDN [address] [facility] [place] [address] 11/11/2023 2:30 PM EDT Telemedicine Pharmacy, [place] [address] [place] [address] [facility] [address] [place] [address] 11/13/2023 9:40 AM EDT Office Visit Podiatry [facility] [address] [place] [address] Calli Avila DPM [address] [place] [address] 01/06/2024 3:00 PM EDT Office Visit Sleep Disorders Ctr [facility] [address] [place] [phone] Veena Rainey CRNP [address] [place] [address] 04/27/2024 12:20 PM EDT Office Visit Nutrition & Weight Management, [facility] [address] [place] [address] Cleo Fonseca PA-C [address] [place] [address] Scheduled Procedures Name Priority Associated Diagnoses Date/Ti [...] this encounter Medical Devices Implanted Type Area Adult Educator Device Identifier Shelf Expiration Date Model / Serial / Lot Coil Vortex 35 Pltinm [id number] - [id number] Implanted:Qty: 1 on 11/27/2021 by Sterling Cates [place] [facility] [place]: Upper Arm [employer] : NEURO INTR [id number] 08/15/2024 [id number] Coil Vortex 35 Pltinm 032290 - [id number] Implanted:Qty: 1 on 11/27/2021 by Sterling Cates [place] [facility] [place]: Upper Arm [employer] : NEURO INTR [id number] 08/15/2024 [id number] Coil Vortex 35 Pltinm 635403 - [id number] Implanted:Qty: 1 on 11/27/2021 by Sterling Cates [place] [facility] [place]: Upper Arm [employer] : NEURO INTR [id number] 08/15/2024 [id number] Coil Vortex 35 Pltinm 277582 - [id number] Implanted:Qty: 1 on 11/27/2021 by Sterling Cates [place] [facility] [place]: Upper Arm [employer] : NEURO INTR [id number] 05/16/2024 [id number] Azur 35 Detachable 5mm 11cm - [id number] Implanted:Qty: 1 on 03/19/2022 by Jose Devine MD [place] [facility] [place]: Wrist [employer] [id number] 10/18/2025 [id number] / / [id number] Azur 35 Detachable 5mm 11cm - [id number] Implanted:Qty: 1 on 03/19/2022 by Jose Devine [place] [facility] [place]: Wrist [employer] [id number] 06/19/2026 [id number] / / [id number] Mesh Flat Sheet 10x14 [id number] - [id number] Implanted:Qty: 1 on 12/11/2022 by Eros Dash [place] [facility] [place]/A: Abdomen CR BARD : DAVOL [id number] 06/17/2027 [id number] / / [id number] documented as of this encounter Advance Directives Documents on File Type Date Recorded Patient Firestopper Installer Expl anation POLST 11/13/2020 POLST PENNSYLVA VALERIA [...] the patient have Health Care Power of Business Insight And Analytics Manager? No Full Code 01/28/2022 11:14 AM 01/28/2022 4:47 PM Full Code 05/22/2021 12:38 PM 05/22/2021 5:48 PM This order reflects the patients wishes and were consensually agreed upon. Question Answer Comments Discussion of Advance Directives occurred with: Not Discussed Does the patient have a Living Will? No Does the patient have Health Care Power of Business Insight And Analytics Manager? No Healthcare Agents on File Name Relationship Healthcare Agent [facility] p Communication Zhen Finley Spouse Health Care Agent Care Teams Computer Technical Support Specialist Relationship Specialty Start Date End Date Luis Frenando Rojas MD [address], [place] [phone] PCP - General Family Medicine 09/23/16 documented as of this encounter
--- OUTSIDE RECORDS SUMMARY | 2024-01-09 10:09 | External Medical Summary | Summary of Care ---
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 [id number] 10/17/2023 12/11/19 25 Active documented as of [...] 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 10/15/2022 [facility] RESEARCH OTHER*[id number] 01/01/2022 S/P gastric bypass 01/01/2022 Marginal ulcer [...] 10/08/2022 Insulin long-term use 11/19/20182018 Overview: Duplicate emt intermediate (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 insulin 11/19/2018 10/08/2022 [...] T-tube placement 04/16/2017 05/29/2017 [facility] [facility] Other*[id number] 04/13/2013 08/27/2016 Overview: Study Title: Genomic Markers for Patients with Cardiovascular Disease Project # [id number] Lens Matcher: Siena Laws MD [phone] Hypertensive heart disease 03/25/2013 1 07/29/2016 Neuropathy, [...] 10/30/2023 9:30 AM EDT Office Visit Orthopaedics [facility] [address] [place] [address] Edison Corcoran PA-C [address] [place] [address] 11/04/2023 10:00 AM EDT Office Visit Family [facility] [address] [facility] [phone] Luis Fernando Rojas MD [address] [facility] [place] [address] 11/07/2023 10:40 AM EDT Telemedicine Nutrition & Weight Management, [facility] [place] [address] Katya Delaney, JOSE [address] [place] [address] 11/11/2023 2:30 PM EDT Telemedicine Pharmacy, [place] [address] [address] [facility] [place] [address] [facility] [address] [facility] [place] [address] 11/13/2023 9:40 AM EDT Office Visit Podiatry [facility] [address] [facility] [place] [address] Calli Avila, [facility] [address] [place] [address] 01/06/2024 3:00 PM EDT Office Visit Sleep Disorders Ctr [facility] [address] [facility] [place] [phone] Veena Rainey CRNP [facility] [place] [address] 04/27/2024 12:20 PM EDT Office Visit Nutrition & Weight Management, [facility] [address] [facility] [place] [address] Cleo Fonseca PA-C [address] [facility] [place] [address] Scheduled Procedures Name Priority Associated Diagnoses Date/Ti [...] this encounter Medical Devices Implanted Type Area Guard Rail Installer Device Identifier Shelf Expiration Date Model / Serial / Lot Coil Vortex 35 Pltinm [id number] - [id number] Implanted:Qty: 1 on 11/27/2021 by Sterling Cates MD at [place] [facility] [place] Right: Upper Arm [employer] : NEURO INTR [id number] 08/15/2024 [id number] 1 / / [id number] Coil Vortex 35 Pltinm 933781 - [id number] Implanted:Qty: 1 on 11/27/2021 by Sterling Cates MD at [place] [facility] [place] Right: Upper Arm [employer] : NEURO INTR [id number] 08/15/2024 [id number] 1 / / [id number] Coil Vortex 35 Pltinm 465204 - [id number] Implanted:Qty: 1 on 11/27/2021 by Sterling Cates MD at [place] [facility] [place] Right: Upper Arm [employer] : NEURO INTR [id number] 08/15/2024 [id number] 1 / / [id number] Coil Vortex 35 Pltinm 053832 - [id number] Implanted:Qty: 1 on 11/27/2021 by Sterling Cates MD at [place] [facility] [place] Right: Upper Arm [employer] : NEURO INTR [id number] 05/16/2024 [id number] / / [id number] Azur 35 Detachable 5mm 11cm - [id number] Implanted:Qty: 1 on 03/19/2022 by Jose Devine MD at [place] [facility] [place] Right: Wrist [employer] [id number] 10/18/2025 [id number] / / [id number] Azur 35 Detachable 5mm 11cm - [id number] Implanted:Qty: 1 on 03/19/2022 by Jose Devine MD at [place] [facility] [place] Right: Wrist [employer] [id number] 06/19/2026 [id number] / / [id number] Mesh Flat Sheet 10x14 [id number] - [id number] Implanted:Qty: 1 on 12/11/2022 by Eros Dash MD at [place] [facility] [place] N/A: Abdomen CR BARD : DAVOL [id number] 06/17/2027 [id number] / / [id number] documented as of this encounter Advance Directives Documents on File Type Date Recorded Patient Tafe Teacher Expl anation POLST 11/13/2020 POLST PENNSYLVA [...] the patient have Health Care Power of Crewman Armoured Personnel Carrier M113? No Full Code 01/28/2022 11:14 AM 01/28/2022 4:47 PM Full Code 05/22/2021 12:38 PM 05/22/2021 5:48 PM This order reflects the patients wishes and were consensually agreed upon. Question Answer Comments Discussion of Advance Directives occurred with: Not Discussed Does the patient have a Living Will? No Does the patient have Health Care Power of Crewman Armoured Personnel Carrier M113? No Healthcare Agents on File Name Relationship Healthcare Agent Relationshi p Communication Zhen Finley Spouse Health Care Agent Care Teams Outpatient Dietitian Relationship Specialty Start Date End Date Luis Fernando Rojas MD [address] [place] [address] PCP - General Family Medicine 09/23/16 documented as of this encounter
--- OUTSIDE RECORDS SUMMARY | 2024-01-09 10:09 | External Medical Summary | Summary of Care ---
Author Name Unknown Organization [facility] Address [address] [place] [address] Phone [phone] Care Team Providers Care Integration Technician Name Role Phone Luis Fernando Rojas MD Primary Care Provider [phone] Encounter Details Date Type Department Care Team [...] directed. 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 10/15/2022 [facility] OTHER*[id number] 01/01/2022 S/P gastric bypass 01/01/2022 Marginal ulcer [...] Insulin long-term use 11/19/20182018 Overview: Duplicate termite helper (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 insulin 11/19/2018 10/08/2022 Morbid [...] T-tube placement 04/16/2017 05/29/2017 [employer] [facility] Other*[id number] 04/13/2013 08/27/2016 Overview: Study Title: Genomic Markers for Patients with Cardiovascular Disease Project # [id number] Patient Financial Counselor: Siena Laws MD [phone] Hypertensive heart disease 03/25/2013 1 07/29/2016 Neuropathy, [...] 10/30/2023 9:30 AM EDT Office Visit Orthopaedics [facility] [address] [place] [address] Edison Corcoran PA-C [address] [place] [address] 11/04/2023 10:00 AM EDT Office Visit Family [facility] [address] [phone] Luis Fernando Rojas MD [address] [facility] [place] [address] 11/07/2023 10:40 AM EDT Telemedicine Nutrition & Weight Management, [facility] [place] [address] Katya Delaney, JOSE [address] [place] [address] 11/11/2023 2:30 PM EDT Telemedicine Pharmacy, [place] [address] [facility] [place] [address] [facility] [address] [facility] [place] [address] 11/13/2023 9:40 AM EDT Office Visit Podiatry [facility] [address] [facility] [place] [address] Calli Avila, [facility] [address] [place] [address] 01/06/2024 3:00 PM EDT Office Visit Sleep Disorders Ctr [facility] [address] [facility] [place] [phone] Veena Rainey CRNP [facility] [place] [address] 04/27/2024 12:20 PM EDT Office Visit Nutrition & Weight Management, [facility] [address] [facility] [place] [address] Cleo Fonseca PA-C [address] [facility] [place] [address] Scheduled Procedures Name Priority Associated Diagnoses Date/Ti [...] encounter Medical Devices Implanted Type Area Manager Behavior Device Identifier Shelf Expiration Date Model / Serial / Lot Coil Vortex 35 Pltinm [id number] - [id number] Implanted:Qty: 1 on 11/27/2021 by Sterling Cates MD at [place] [facility] Right: Upper Arm [employer] : NEURO INTR [id number] 08/15/2024 [id number] 1 / / [id number] Coil Vortex 35 Pltinm [id number] - [id number] Implanted:Qty: 1 on 11/27/2021 by Sterling Cates MD at [place] [facility] Right: Upper Arm [employer] : NEURO INTR [id number] 08/15/2024 [id number] / / [id number] Coil Vortex 35 Pltinm [id number] - [id number] Implanted:Qty: 1 on 11/27/2021 by Sterling Cates MD at [place] [facility] Right: Upper Arm [employer] : NEURO INTR [id number] 08/15/2024 [id number] 1 / / [id number] Coil Vortex 35 Pltinm [id number] - [id number] Implanted:Qty: 1 on 11/27/2021 by Sterling Cates MD at [place] [facility] Right: Upper Arm [employer] : NEURO INTR [id number] 05/16/2024 [id number] / / [id number] Azur 35 Detachable 5mm 11cm - [id number] Implanted:Qty: 1 on 03/19/2022 by Jose Devine MD at [place] [facility] Right: Wrist [employer] [id number] 10/18/2025 [id number] / / [id number] Azur 35 Detachable 5mm 11cm - [id number] Implanted:Qty: 1 on 03/19/2022 by Jose Devine MD at [place] [facility] Right: Wrist [employer] [id number] 06/19/2026 [id number] / / [id number] Mesh Flat Sheet 10x14 [id number] - [id number] Implanted:Qty: 1 on 12/11/2022 by Eros Dash MD at [place] [facility] N/A: Abdomen CR BARD : DAVOL [id number] 06/17/2027 [id number] / / [id number] documented as of this encounter Advance Directives Documents on File Type Date Recorded Patient Application Internship Expl anation POLST 11/13/2020 POLST PENNSYLVA VALERIA [...] patient have Health Care Power of Supervisor Tree Trimming? No Full Code 01/28/2022 11:14 AM 01/28/2022 4:47 PM Full Code 05/22/2021 12:38 PM 05/22/2021 5:48 PM This order reflects the patients wishes and were consensually agreed upon. Question Answer Comments Discussion of Advance Directives occurred with: Not Discussed Does the patient have a Living Will? No Does the patient have Health Care Power of Supervisor Tree Trimming? No Healthcare Agents on File Name Relationship Healthcare Agent Relationshi p Communication Zhen Finley Spouse Health Care Agent Care Teams Integration Technician Relationship Specialty Start Date End Date Luis Fernando Rojas MD [address] [place] [address] PCP - General Family Medicine 09/23/16 documented as of this encounter
--- OUTSIDE RECORDS SUMMARY | 2024-01-09 10:10 | External Medical Summary | Summary of Care ---
Author Name Unknown Organization [facility] Address [address] [place] [address] Phone [phone] Care Team Providers Care Glaze Mixer Name Role Phone Luis Fernando Rojas MD Primary Care Provider [phone] Encounter Details Date Type Department Care Team (Late st Contact Info) Description 10/22/2023 Telephone Pulmonary Medicine, [facility] [address] [place] [address] Kelsey Garcia, [address] [place] [address] Allergies Active Allergy Reactions Criticality Noted Date Comments Salvador Inhibitors Other (Please comment) High 0 HyperKalemia documented as of this encounter (statuses as of 10/22/2023) Medications Medication Sig Dispensed Refills Start Date [...] 1,000 mcgIndications:S/P gastric bypass 1000 mcg IM [id number] 10/15/2022 07/19/2025 Active vitamin b-12 (Cyanocobalamin) inj 1,000 mcgIndications:Morbid obesity with BMI of 40.0-44.9, adult (HCC),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 [id number] 10/17/2023 12/11/19 25 Active documented as of this encounter (statuses as of 10/22/2023) Active Problems Problem Noted Date Diagnosed Date [...] 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 10/15/2022 [facility] OTHER*[id number] 01/01/2022 S/P gastric bypass 01/01/2022 Marginal ulcer [...] as of this encounter (statuses as of 10/22/2023) Resolved Problems Problem Noted Date Diagnosed Date [...] 10/08/2022 Insulin long-term use 11/19/20182018 Overview: Duplicate lobsterman (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 insulin 11/19/2018 10/08/2022 Morbid [...] T-tube placement 04/16/2017 05/29/2017 [facility] [facility] Other*[id number] 04/13/2013 08/27/2016 Overview: Study Title: Genomic Markers for Patients with Cardiovascular Disease Project # [id number] Mica Patcher: Siena Laws MD [phone] Hypertensive heart disease 03/25/2013 1 07/29/2016 Neuropathy, [...] as of this encounter (statuses as of 10/22/2023) Immunizations Name Administration Dates Next Due COVID-19 [...] encounter Miscellaneous Notes * Telephone Encounter - Sakina Huang OSA - 10/22/2023 7:37 AM EDT From [facility]: thank you for submitting this order to [...] 10/30/2023 9:30 AM EDT Office Visit Orthopaedics [facility] [address] [place] [address] Edison Corcoran PA-C [address] [place] [address] 11/04/2023 10:00 AM EDT Office Visit Family [facility], [place] [address] [place] [address] Luis Fernando Rojas MD [address] [place] [address] 11/07/2023 10:40 AM EDT Telemedicine Nutrition & Weight Management, [facility] [address] [facility] [place] [address] Katya Delaney RDN [address] [facility] [place] [address] 11/11/2023 2:30 PM EDT Telemedicine Pharmacy, [place] [address] [place] [address] [facility] [address] [place] [address] 11/13/2023 9:40 AM EDT Office Visit Podiatry [facility] [address] [facility] [place] [address] Calli Avila DPM [address] [place] [address] 01/06/2024 3:00 PM EDT Office Visit Sleep Disorders Ctr [facility] [address] [facility] [place] [phone] Veena Rainey CRNP [address] [place] [address] 04/27/2024 12:20 PM EDT Office Visit Nutrition & Weight Management, [facility] [address] [place] [address] Cleo Fonseca PA-C [address] [place] [address] Scheduled Procedures Name Priority Associated Diagnoses Date/Ti [...] this encounter Medical Devices Implanted Type Area Feeder Driver Device Identifier Shelf Expiration Date Model / Serial / Lot Coil Vortex 35 Pltinm [id number] - [id number] Implanted:Qty: 1 on 11/27/2021 by Sterling Cates MD at OR [facility] [place] Right: Upper Arm [employer] : NEURO INTR [id number] 08/15/2024 [id number] Coil Vortex 35 Pltinm 391676 - [id number] Implanted:Qty: 1 on 11/27/2021 by Sterling Cates MD at OR [facility] Right: Upper Arm [employer] : NEURO INTR [id number] 08/15/2024 [id number] Coil Vortex 35 Pltinm [id number] - [id number] Implanted:Qty: 1 on 11/27/2021 by Sterling Cates MD at OR [facility] [place] Right: Upper Arm [employer] : NEURO INTR [id number] 08/15/2024 [id number] Coil Vortex 35 Pltinm 973815 - [id number] Implanted:Qty: 1 on 11/27/2021 by Sterling Cates MD at OR [facility] Right: Upper Arm [employer] : NEURO INTR [id number] 05/16/2024 [id number] Azur 35 Detachable 5mm 11cm - [id number] Implanted:Qty: 1 on 03/19/2022 by Jose Devine MD at OR [facility] Right: Wrist [employer] [id number] 10/18/2025 [id number] / / [id number] Azur 35 Detachable 5mm 11cm - [id number] Implanted:Qty: 1 on 03/19/2022 by Jose Devine MD at OR [facility] Right: Wrist [employer] [id number] 06/19/2026 [id number] / / [id number] Mesh Flat Sheet 10x14 [id number] - [id number] Implanted:Qty: 1 on 12/11/2022 by Eros Dash MD at OR [facility] [place] N/A: Abdomen CR BARD : DAVOL [id number] 06/17/2027 [id number] / / [id number] documented as of this encounter Advance Directives Documents on File Type Date Recorded Patient Fleet Coordinator Expl anation POLST 11/13/2020 POLST PENNSYLVA [...] the patient have Health Care Power of Sports Book Server? No Full Code 01/28/2022 11:14 AM 01/28/2022 4:47 PM Full Code 05/22/2021 12:38 PM 05/22/2021 5:48 PM This order reflects the patients wishes and were consensually agreed upon. Question Answer Comments Discussion of Advance Directives occurred with: Not Discussed Does the patient have a Living Will? No Does the patient have Health Care Power of Sports Book Server? No Healthcare Agents on File Name Relationship Healthcare Agent [facility] p Communication Zhen Finley Spouse Health Care Agent Care Teams Glaze Mixer Relationship Specialty Start Date End Date Luis Fernando Rojas MD [address] [place] [address] PCP - General Family Medicine 09/23/16 documented as of this encounter
--- OUTSIDE RECORDS SUMMARY | 2024-01-09 10:10 | External Medical Summary | Summary of Care ---
Author Name Unknown Organization [facility] Address [address] [place] [address] Phone [phone] Care Team Providers Care Garment Worker Name Role Phone Luis Fernando Rojas MD Primary Care Provider [phone] Encounter Details Date Type Department Care Team (Late st Contact Info) Description 10/22/2023 Telephone Pulmonary Medicine, [facility] [address] [place] [address] Kelsey Garcia, [address] [place] [address] Allergies Active Allergy Reactions Criticality Noted Date [...] 1,000 mcgIndications:S/P gastric bypass 1000 mcg IM [id number] 10/15/2022 07/19/2025 Active vitamin b-12 (Cyanocobalamin) inj 1,000 mcgIndications:Morbid obesity with BMI of 40.0-44.9, adult (HCC),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 [id number] 10/17/2023 12/11/19 25 Active documented as of [...] 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 10/15/2022 [facility] OTHER*[id number] 01/01/2022 S/P gastric bypass 01/01/2022 Marginal ulcer [...] 10/08/2022 Insulin long-term use 11/19/20182018 Overview: 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 11/19/2018 10/08/2022 Morbid [...] T-tube placement 04/16/2017 05/29/2017 [facility] [facility] Other*[id number] 04/13/2013 08/27/2016 Overview: Study Title: Genomic Markers for Patients with Cardiovascular Disease Project # [id number] Lithopress Operator: Siena Laws MD [phone] Hypertensive heart disease 03/25/2013 1 07/29/2016 Neuropathy, [...] OSA - 10/22/2023 7:37 AM EDT From [facility]: thank you for submitting this order to [...] 10/30/2023 9:30 AM EDT Office Visit Orthopaedics [facility] [address] [place] [address] Edison Corcoran PA-C [address] [place] [address] 11/04/2023 10:00 AM EDT Office Visit Family [facility], [place] [address] [place] [address] Luis Fernando Rojas MD [address] [place] [address] 11/07/2023 10:40 AM EDT Telemedicine Nutrition & Weight Management, [facility] [address] [facility] [place] [address] Katya Delaney RDN [facility] [place] [address] 11/11/2023 2:30 PM EDT Telemedicine Pharmacy, [place] [address] [place] [address] [facility] [address] [place] [address] 11/13/2023 9:40 AM EDT Office Visit Podiatry [facility] [address] [facility] [place] [address] Calli Avila DPM [address] [place] [address] 01/06/2024 3:00 PM EDT [facility] [address] [facility] [place] [phone] Veena Rainey CRNP [address] [place] [address] 04/27/2024 12:20 PM EDT Office Visit Nutrition & Weight Management, [facility] [address] [place] [address] Cleo Fonseca PA-C [address] [place] [address] Scheduled Procedures Name Priority Associated Diagnoses Date/Ti [...] this encounter Medical Devices Implanted Type Area Wood Turner Device Identifier Shelf Expiration Date Model / Serial / Lot Coil Vortex 35 Pltinm [id number] - [id number] Implanted:Qty: 1 on 11/27/2021 by Sterling Cates MD at OR [facility] Right: Upper Arm [employer] : NEURO INTR [id number] 08/15/2024 [id number] Coil Vortex 35 Pltinm [id number] - [id number] Implanted:Qty: 1 on 11/27/2021 by Sterling Cates MD at OR [facility] Right: Upper Arm [employer] : NEURO INTR [id number] 08/15/2024 [id number] Coil Vortex 35 Pltinm 935257 - [id number] Implanted:Qty: 1 on 11/27/2021 by Sterling Cates MD at OR [facility] Right: Upper Arm [employer] : NEURO INTR [id number] 08/15/2024 [id number] Coil Vortex 35 Pltinm 188464 - [id number] Implanted:Qty: 1 on 11/27/2021 by Sterling Cates MD at OR [facility] Right: Upper Arm [employer] : NEURO INTR [id number] 05/16/2024 [id number] Azur 35 Detachable 5mm 11cm - [id number] Implanted:Qty: 1 on 03/19/2022 by Jose Devine MD at OR [facility] Right: Wrist [employer] [id number] 10/18/2025 [id number] / / [id number] Azur 35 Detachable 5mm 11cm - [id number] Implanted:Qty: 1 on 03/19/2022 by Jose Devine MD at OR [facility] Right: Wrist [employer] [id number] 06/19/2026 [id number] / / [id number] Mesh Flat Sheet 10x14 [id number] - [id number] Implanted:Qty: 1 on 12/11/2022 by Eros Dash MD at OR [facility] N/A: Abdomen CR BARD : DAVOL [id number] 06/17/2027 [id number] / / [id number] documented as of this encounter Advance Directives Documents on File Type Date Recorded Patient Digester Operator Expl anation POLST 11/13/2020 POLST PEN[place]YLVA [...] the patient have Health Care Power of Qa Test Analyst? No Full Code 01/28/2022 11:14 AM 01/28/2022 4:47 PM Full Code 05/22/2021 12:38 PM 05/22/2021 5:48 PM This order reflects the patients wishes and were consensually agreed upon. Question Answer Comments Discussion of Advance Directives occurred with: Not Discussed Does the patient have a Living Will? No Does the patient have Health Care Power of Qa Test Analyst? No Healthcare Agents on File Name Relationship Healthcare Agent [facility] p Communication Zhen Finley Spouse Health Care Agent Care Teams Garment Worker Relationship Specialty Start Date End Date Luis Fernando Rojas MD [address] [place] [address] PCP - General Family Medicine 09/23/16 documented as of this encounter
--- OUTSIDE RECORDS SUMMARY | 2024-01-09 10:10 | External Medical Summary | Summary of Care ---
Author Name Unknown Organization [facility] Address [address] [place] [address] Phone [phone] Care Team Providers Care Crosstie Inspector Name Role Phone Luis Fernando Rojas MD Primary Care Provider [phone] Encounter Details Date Type Department Care Team (Late st Contact Info) Description 10/17/2023 Telephone Nutrition & Weight Management, [facility] [address] [place] [address] Cleo Fonseca PA-C [address] [place] [address] Allergies Active Allergy Reactions Criticality Noted Date Comments Salvador Inhibitors Other (Please comment) High 0 HyperKalemia documented as of this encounter (statuses as of 10/17/2023) Medications Medication Sig Dispensed Refills Start Date [...] on 10/14/23 45 mL 3 10/14/2023 Active Hospital, Clinic, or Other Facility Administered Medication Ordered Dose Route Frequency Start Date End Date Status vitamin b-12 (Cyanocobalamin) inj 1,000 mcgIndications:S/P gastric bypass 1000 mcg IM [id number] 10/15/2022 07/19/2025 Active vitamin b-12 (Cyanocobalamin) inj 1,000 mcgIndications:Morbid obesity with BMI of 40.0-44.9, adult (HCC),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 [id number] 10/17/2023 12/11/19 25 Active documented as of this encounter (statuses as of 10/17/2023) Active Problems Problem Noted Date Diagnosed Date [...] 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 10/15/2022 [facility] OTHER*[id number] 01/01/2022 S/P gastric bypass 01/01/2022 Marginal ulcer [...] as of this encounter (statuses as of 10/17/2023) Resolved Problems Problem Noted Date Diagnosed Date [...] 10/08/2022 Insulin long-term use 11/19/20182018 Overview: Duplicate adjunct faculty for medical terminology (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 insulin 11/19/2018 10/08/2022 Morbid [...] T-tube placement 04/16/2017 05/29/2017 [employer] Other*[id number] 04/13/2013 08/27/2016 Overview: Study Title: Genomic Markers for Patients with Cardiovascular Disease Project # [id number] Real Property Appraiser: Siena Laws MD [phone] Hypertensive heart disease 03/25/2013 1 07/29/2016 Neuropathy, [...] as of this encounter (statuses as of 10/17/2023) Immunizations Name Administration Dates Next Due COVID-19 [...] encounter Miscellaneous Notes * Telephone Encounter - Sameer Hassan MD - 10/17/2023 10:34 AM EDT Dialysis patients are not included in these trials. They do have Chronic issue with nausea and diabetic gastroparesis. In few patients with ozempic use had to stop because of Severe nausea. I am not a fan of ozempic in Dialysis patient. But I would not be really against it as long as patient is really for it. Sameer Hassan MD * Telephone Encounter - Vera Langston [facility] - 10/17/2023 8:38 AM EDT I am in agreement that should would be a great candidate for ozempic to assist with weight loss + BG control but would defer final decision to Dr. Hassan. Thanks! Vera Langston, PharmD, BCACP Clinical Pharmacist Medication Therapy Disease Management 10/17/2023, 8:39 AM * Telephone Encounter - Cleo Fonseca PA-C - 10/17/2023 8:27 AM EDT I saw Candi in nutrition and weight management s/p bariatric surgery She has had weight regain She would be a great candidate for ozempic. She reports she tolerated it well previously Post bariatric surgery patients do fantastic with the GLP-1 for weight regain Semaglutide has also been shown to delay progression of kidney disease in diabetes and most recently got FDA indication for patients with established cardiovascular disease It seemed she was not thought to be a candidate for GLP-1 so I wanted to reach out to her team to discuss. Could we start her on ozempic? Thanks! documented in this encounter Plan of Treatment Upcoming Encounters Date Type Department Care Team (Late st Contact Info) Description 11/04/2023 10:00 AM EDT Office Visit [place] [address] [facility] [address] Luis Fernando Rojas MD [address] [facility] [address] 11/11/2023 2:30 PM EDT Telemedicine Pharmacy, [place] [address] [facility] [address] [facility] [address] [facility] [address] 11/13/2023 9:40 AM EDT Office Visit Podiatry [facility] [address] [place] [address] Calli Avila DPM [address] [place] [address] 01/06/2024 3:00 PM EDT Office Visit [facility] [place] [address] Veena Rainey CRNP [address] [place] [address] Scheduled Procedures Name Priority Associated Diagnoses Date/Ti [...] this encounter Medical Devices Implanted Type Area Roads Supervisor Device Identifier Shelf Expiration Date Model / Serial / Lot Coil Vortex 35 Pltinm [id number] - [id number] Implanted:Qty: 1 on 11/27/2021 by Sterling Cates MD at OR [facility] Right: Upper Arm [employer] : NEURO INTR [id number] 08/15/2024 [id number] / [id number] Coil Vortex 35 Pltinm [id number] - [id number] Implanted:Qty: 1 on 11/27/2021 by Sterling Cates MD at OR [facility] Right: Upper Arm [employer] : NEURO INTR [id number] 08/15/2024 [id number] / / [id number] Coil Vortex 35 Pltinm [id number] - [id number] Implanted:Qty: 1 on 11/27/2021 by Sterling Cates MD at OR [facility] Right: Upper Arm [employer] : NEURO INTR [id number] 08/15/2024 [id number] / / [id number] Coil Vortex 35 Pltinm [id number] - [id number] Implanted:Qty: 1 on 11/27/2021 by Sterling Cates MD at OR [facility] Right: Upper Arm [employer] : NEURO INTR [id number] 05/16/2024 [id number] / / [id number] Azur 35 Detachable 5mm 11cm - [id number] Implanted:Qty: 1 on 03/19/2022 by Jose Devine MD at OR [facility] Right: Wrist [employer] [id number] 10/18/2025 [id number] / / [id number] Azur 35 Detachable 5mm 11cm - [id number] Implanted:Qty: 1 on 03/19/2022 by Jose Devine MD at OR [facility] Right: Wrist [employer] [id number] 06/19/2026 [id number] / / [id number] Mesh Flat Sheet 10x14 [id number] - [id number] Implanted:Qty: 1 on 12/11/2022 by Eros Dash MD at OR [facility] N/A: Abdomen CR BARD : DAVOL [id number] 06/17/2027 [id number] / / [id number] documented as of this encounter Advance Directives Documents on File Type Date Recorded Patient Salesforce Developer Expl anation POLST 11/13/2020 POLST PENNSYLVA VALERIA [...] the patient have Health Care Power of Equipment Or Machinery Cleaner? No Full Code 01/28/2022 11:14 AM 01/28/2022 4:47 PM Full Code 05/22/2021 12:38 PM 05/22/2021 5:48 PM This order reflects the patients wishes and were consensually agreed upon. Question Answer Comments Discussion of Advance Directives occurred with: Not Discussed Does the patient have a Living Will? No Does the patient have Health Care Power of Equipment Or Machinery Cleaner? No Healthcare Agents on File Name Relationship Healthcare Agent Leann interiano Communication Zhen Finley Spouse Health Care Agent Care Teams Crosstie Inspector Relationship Specialty Start Date End Date Luis Fernando Rojas MD [address] [place] [address] PCP - General Family Medicine 09/23/16 documented as of this encounter
--- OUTSIDE RECORDS SUMMARY | 2024-01-09 10:10 | External Medical Summary | Summary of Care ---
Author Name Unknown Organization [facility] Address [address] [place] [address] Phone [phone] Care Team Providers Care Brake Shoe Rebuilder Name Role Phone Luis Fernando Rojas MD Primary Care Provider [phone] Encounter Details Date Type Department Care Team (Late st Contact Info) Description 10/17/2023 Telephone Nutrition & Weight Management, 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 [id number] 10/17/2023 12/11/19 25 Active documented as of this encounter (statuses as of 10/20/2023) Active Problems Problem Noted Date Diagnosed Date [...] 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 10/15/2022 [facility] RESE[facility] OTHER*[id number] 01/01/2022 S/P gastric bypass 01/01/2022 Marginal ulcer [...] as of this encounter (statuses as of 10/20/2023) Resolved Problems Problem Noted Date Diagnosed Date [...] T-tube placement 04/16/2017 05/29/2017 [employer] Other*[id number] 04/13/2013 08/27/2016 Overview: Study Title: Genomic Markers for Patients with Cardiovascular Disease Project # [id number] Box Icer: Siena Laws MD [phone] Hypertensive heart disease 03/25/2013 1 07/29/2016 Neuropathy, [...] as of this encounter (statuses as of 10/20/2023) Immunizations Name Administration Dates Next Due COVID-19 [...] encounter Miscellaneous Notes * Telephone Encounter - Edison Zamora LPN - 10/20/2023 3:44 PM EDT Pt is agreeable to starting Ozempic * Telephone Encounter - Sameer Hassan MD [...] MD * Telephone Encounter - Vera Langston [facility] - 10/17/2023 8:38 AM EDT I am [...] Description 11/04/2023 10:00 AM EDT Office [facility] [address] [facility] [id number] Luis Fernando Rojas MD [address] [facility] [address] 11/07/2023 10:40 AM EDT Telemedicine Nutrition & Weight Management, [facility] [address] [place] [address] [address] Katya Delaney RDN [address] [place] [address] 11/11/2023 2:30 PM EDT Telemedicine Pharmacy, [place] [address] [facility] [place] [address] [place], [facility] [address] [facility], [place] [address] 11/13/2023 9:40 AM EDT Office Visit Podiatry [facility] [address] [place] [address] Calli Avila, DAIANA [address] [place] [address] 01/06/2024 3:00 PM EDT Office Visit [facility] Disorders Ctr [facility] [address] [facility] [place] [phone] Veena Rainey CRNP [address] [place] [address] 04/27/2024 12:20 PM EDT Office Visit Nutrition & Weight Management, [facility] [address] [facility] [place] [address] Cleo Fonseca PA-C [address] [facility] [place] [address] Scheduled Procedures Name Priority Associated Diagnoses Date/Ti [...] this encounter Medical Devices Implanted Type Area Rubber Washer Device Identifier Shelf Expiration Date Model / Serial / Lot Coil Vortex 35 Pltinm [id number] - [id number] Implanted:Qty: 1 on 11/27/2021 by Sterling Cates MD at [place] [facility] Right: Upper Arm [employer] : NEURO INTR [id number] 08/15/2024 [id number] Coil Vortex 35 Pltinm [id number] - [id number] Implanted:Qty: 1 on 11/27/2021 by Sterling Cates MD at OR [facility] Right: Upper Arm [employer] : NEURO INTR [id number] 08/15/2024 [id number] / / [id number] Coil Vortex 35 Pltinm [id number] - [id number] Implanted:Qty: 1 on 11/27/2021 by Sterling Cates MD at OR [facility] Right: Upper Arm [employer] : NEURO INTR [id number] 08/15/2024 [id number] / / [id number] Coil Vortex 35 Pltinm [id number] - [id number] Implanted:Qty: 1 on 11/27/2021 by Sterling Cates MD at OR [facility] Right: Upper Arm [employer] : NEURO INTR [id number] 05/16/2024 [id number] / / [id number] Azur 35 Detachable 5mm 11cm - [id number] Implanted:Qty: 1 on 03/19/2022 by Jose Devine MD at OR [facility] Right: Wrist [employer] [id number] 10/18/2025 [id number] / / [id number] Azur 35 Detachable 5mm 11cm - [id number] Implanted:Qty: 1 on 03/19/2022 by Jose Devine MD at OR [facility] Right: Wrist [employer] [id number] 06/19/2026 [id number] / / [id number] Mesh Flat Sheet 10x14 [id number] - [id number] Implanted:Qty: 1 on 12/11/2022 by Eros Dash MD at OR [facility] N/A: Abdomen CR BARD : DAVOL [id number] 06/17/2027 [id number] / / [id number] documented as of this encounter Advance Directives Documents on File Type Date Recorded Patient Director Client Expl anation POLST 11/13/2020 POLST DOWNEY VALERIA ORDERS FOR LIFE-SUSTAINING TREATMENT Latest Code [...] the patient have Health Care Power of Dry Pan Charger? No Full Code 01/28/2022 11:14 AM 01/28/2022 4:47 PM Full Code 05/22/2021 12:38 PM 05/22/2021 5:48 PM This order reflects the patients wishes and were consensually agreed upon. Question Answer Comments Discussion of Advance Directives occurred with: Not Discussed Does the patient have a Living Will? No Does the patient have Health Care Power of Dry Pan Charger? No Healthcare Agents on File Name Relationship Healthcare Agent Relationshi p Communication Zhen Finley Spouse Health Care Agent Care Teams Brake Shoe Rebuilder Relationship Specialty Start Date End Date Luis Fernando Rojas MD [address] [place] [address] PCP - General Family Medicine 09/23/16 documented as of this encounter
--- OUTSIDE RECORDS SUMMARY | 2024-01-09 10:10 | External Medical Summary | Summary of Care ---
Author Name Unknown Organization [facility] Address [address] [place] [address] Phone [phone] Care Team Providers Care Garden Center Manager Name Role Phone Luis Fernando Rojas MD Primary Care Provider [phone] Encounter Details Date Type Department Care Team (Late st Contact Info) Description 10/17/2023 Telephone Nutrition & Weight Management, [facility] [address] [place] [address] Cleo Fonseca PA-C [address] [place] [address] Allergies Active Allergy Reactions Criticality Noted Date [...] 1,000 mcgIndications:S/P gastric bypass 1000 mcg IM [id number] 10/15/2022 07/19/2025 Active vitamin b-12 (Cyanocobalamin) inj 1,000 mcgIndications:Morbid obesity with BMI of 40.0-44.9, adult (HCC),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 [id number] 10/17/2023 12/11/19 25 Active documented as of [...] 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 10/15/2022 [facility] OTHER*[id number] 01/01/2022 S/P gastric bypass 01/01/2022 Marginal ulcer [...] 10/08/2022 Insulin long-term use 11/19/20182018 Overview: Duplicate locker room attendant (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 insulin 11/19/2018 10/08/2022 Morbid [...] T-tube placement 04/16/2017 05/29/2017 [employer] Other*[id number] 04/13/2013 08/27/2016 Overview: Study Title: Genomic Markers for Patients with Cardiovascular Disease Project # [id number] Ux Designer: Siena Laws MD [phone] Hypertensive heart disease 03/25/2013 1 07/29/2016 Neuropathy, [...] MD * Telephone Encounter - Vera Langston [facility] - 10/17/2023 8:38 AM EDT I am [...] Description 11/04/2023 10:00 AM EDT Office [facility] [place] [address] [facility] [address] Luis Fernando Rojas MD [address] [facility] [address] 11/11/2023 2:30 PM EDT Telemedicine Pharmacy, [place] [address] [facility] [address] [facility] [address] [facility] [address] 11/13/2023 9:40 AM EDT Office Visit Podiatry [facility] [address] [address] [address] Calli Avila DPM [address] [place] [address] 01/06/2024 3:00 PM EDT Office Visit [facility] [place] [address] Veena Rainey CRNP [address] [place] [address] Scheduled Procedures Name Priority Associated Diagnoses Date/Ti [...] this encounter Medical Devices Implanted Type Area Personal Lines Insurance Agent Device Identifier Shelf Expiration Date Model / Serial / Lot Coil Vortex 35 Pltinm [id number] - [id number] Implanted:Qty: 1 on 11/27/2021 by Sterling Cates MD at OR [facility] Right: Upper Arm [employer] : NEURO INTR [id number] 08/15/2024 [id number] / [id number] Coil Vortex 35 Pltinm [id number] - [id number] Implanted:Qty: 1 on 11/27/2021 by Sterling Cates MD at OR [facility] Right: Upper Arm [employer] : NEURO INTR [id number] 08/15/2024 [id number] / / [id number] Coil Vortex 35 Pltinm [id number] - [id number] Implanted:Qty: 1 on 11/27/2021 by Sterling Cates MD at OR [facility] Right: Upper Arm [employer] : NEURO INTR [id number] 08/15/2024 [id number] / / [id number] Coil Vortex 35 Pltinm [id number] - [id number] Implanted:Qty: 1 on 11/27/2021 by Sterlnig Cates MD at OR [facility] Right: Upper Arm [employer] : NEURO INTR [id number] 05/16/2024 [id number] / / [id number] Azur 35 Detachable 5mm 11cm - [id number] Implanted:Qty: 1 on 03/19/2022 by Jose Devine MD at OR [facility] Right: Wrist [employer] [id number] 10/18/2025 [id number] / / [id number] Azur 35 Detachable 5mm 11cm - [id number] Implanted:Qty: 1 on 03/19/2022 by Jose Devine MD at OR [facility] Right: Wrist [employer] [id number] 06/19/2026 [id number] / / [id number] Mesh Flat Sheet 10x14 [id number] - [id number] Implanted:Qty: 1 on 12/11/2022 by Eros Dash MD at OR [facility] N/A: Abdomen CR BARD : DAVOL [id number] 06/17/2027 [id number] / / [id number] documented as of this encounter Advance Directives Documents on File Type Date Recorded Patient Dog Bather Expl anation POLST 11/13/2020 POLST PENNSYLVA VALERIA [...] the patient have Health Care Power of Rib Chopper? No Full Code 01/28/2022 11:14 AM 01/28/2022 4:47 PM Full Code 05/22/2021 12:38 PM 05/22/2021 5:48 PM This order reflects the patients wishes and were consensually agreed upon. Question Answer Comments Discussion of Advance Directives occurred with: Not Discussed Does the patient have a Living Will? No Does the patient have Health Care Power of Rib Chopper? No Healthcare Agents on File Name Relationship Healthcare Agent Leann interiano Communication Zhen Finley Spouse Health Care Agent Care Teams Garden Center Manager Relationship Specialty Start Date End Date Luis Fernando Rojas MD [address] [place] [address] PCP - General Family Medicine 09/23/16 documented as of this encounter
--- OUTSIDE RECORDS SUMMARY | 2024-01-09 10:10 | External Medical Summary | Summary of Care ---
Author Name Unknown Organization [facility] Address [address] [place] [address] Phone [phone] Care Team Providers Care Slicing Machine Feeder Name Role Phone Luis Fernando Rojas MD Primary Care Provider [phone] Encounter Details Date Type Department Care Team (Late st Contact Info) Description 10/17/2023 Telephone Nutrition & Weight Management, [facility] [address] [place] [address] Cleo Coe PA-C [address] [place] [address] Allergies Active Allergy Reactions Criticality Noted Date [...] 1,000 mcgIndications:S/P gastric bypass 1000 mcg IM [id number] 10/15/2022 07/19/2025 Active vitamin b-12 (Cyanocobalamin) inj 1,000 mcgIndications:Morbid obesity with BMI of 40.0-44.9, adult (HCC),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 [id number] 10/17/2023 12/11/19 25 Active documented as of [...] 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 10/15/2022 [facility] OTHER*[id number] 01/01/2022 S/P gastric bypass 01/01/2022 Marginal ulcer [...] 10/08/2022 Insulin long-term use 11/19/20182018 Overview: Duplicate long-term (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 insulin 11/19/2018 10/08/2022 Morbid [...] T-tube placement 04/16/2017 05/29/2017 [employer] Other*[id number] 04/13/2013 08/27/2016 Overview: Study Title: Genomic Markers for Patients with Cardiovascular Disease Project # [id number] College Hire: Siena Laws MD [phone] Hypertensive heart disease 03/25/2013 1 07/29/2016 Neuropathy, [...] encounter Miscellaneous Notes * Addendum Note - Cleo Coe PA-C - 10/20/2023 4:12 PM EDTAddended by: CLEO COE on: 10/20/2023 04:12 PM Modules accepted: Orders * Telephone Encounter - Edison Zamora LPN [...] MD * Telephone Encounter - Vera Langston RPh - 10/17/2023 8:38 AM EDT I am in agreement that should would be a great candidate for ozempic to assist with weight loss + BG control but would defer final decision to Dr. Hassan. Thanks! Vera Langston, PharmD, BCACP Clinical Pharmacist Medication Therapy Disease Management 10/17/2023, 8:39 AM * Telephone Encounter - Cleo Coe PA-C - 10/17/2023 8:27 AM EDT I [...] Description 11/04/2023 10:00 AM EDT [facility] Visit [facility] [address] [facility] [place] [phone] Luis Fernando Rojas MD [address] [place] [address] 11/07/2023 10:40 AM EDT Telemedicine Nutrition & Weight Management, [facility] [address] [address] Katya Delaney RDN [address] [place] [address] 11/11/2023 2:30 PM EDT Telemedicine Pharmacy, [facility] [address] [place] [address] [facility] [address] [place] [address] 11/13/2023 9:40 AM EDT Office Visit Podiatry [facility] [address] [place] [address] Calli Avila DPM [address] [place] [address] 01/06/2024 3:00 PM EDT Office [facility] [place] [address] Veena Rainey CRNP [address] [place] [address] 04/27/2024 12:20 PM EDT Office Visit Nutrition & Weight Management, [facility] [address] [place] [address] Cleo Coe PA-C [address] [place] [address] Scheduled Procedures Name Priority Associated Diagnoses Date/Ti [...] this encounter Medical Devices Implanted Type Area National Account Representative Device Identifier Shelf Expiration Date Model / Serial / Lot Coil Vortex 35 Pltinm [id number] - [id number] Implanted:Qty: 1 on 11/27/2021 by Sterling Cates MD at OR [facility] Right: Upper Arm [employer] : NEURO INTR [id number] 08/15/2024 [id number] / / [id number] Coil Vortex 35 Pltinm [id number] - [id number] Implanted:Qty: 1 on 11/27/2021 by Sterling Cates MD at OR [facility] Right: Upper Arm [employer] : NEURO INTR [id number] 08/15/2024 [id number] / / [id number] Coil Vortex 35 Pltinm [id number] - [id number] Implanted:Qty: 1 on 11/27/2021 by Sterling Cates MD at OR [facility] Right: Upper Arm [employer] : NEURO INTR [id number] 08/15/2024 [id number] / / [id number] Coil Vortex 35 Pltinm [id number] - [id number] Implanted:Qty: 1 on 11/27/2021 by Sterling Cates MD at OR [facility] Right: Upper Arm [employer] : NEURO INTR [id number] 05/16/2024 [id number] / / [id number] Azur 35 Detachable 5mm 11cm - [id number] Implanted:Qty: 1 on 03/19/2022 by Jose Devine MD at OR [facility] Right: Wrist [employer] [id number] 10/18/2025 [id number] / / [id number] Azur 35 Detachable 5mm 11cm - [id number] Implanted:Qty: 1 on 03/19/2022 by Jose Devine MD at OR [facility] Right: Wrist [employer] [id number] 06/19/2026 [id number] / / [id number] Mesh Flat Sheet 10x14 [id number] - [id number] Implanted:Qty: 1 on 12/11/2022 by Eros Dash MD at OR [facility] N/A: Abdomen CR BARD : DAVOL [id number] 06/17/2027 [id number] / / [id number] documented as of this encounter Visit Diagnoses Diagnosis Type 2 diabetes mellitus with hemoglobin A1c goal of less than 7.0% (HCC)- Primary documented in this encounter Advance Directives Documents on File Type Date Recorded Patient Planograph Operator Expl anation POLST 11/13/2020 POLST [place] [...] the patient have Health Care Power of Disease Intervention Specialist? No Full Code 01/28/2022 11:14 AM 01/28/2022 4:47 PM Full Code 05/22/2021 12:38 PM 05/22/2021 5:48 PM This order reflects the patients wishes and were consensually agreed upon. Question Answer Comments Discussion of Advance Directives occurred with: Not Discussed Does the patient have a Living Will? No Does the patient have Health Care Power of Disease Intervention Specialist? No Healthcare Agents on File Name Relationship Healthcare Agent [facility] p Communication Zhen Finley Spouse Health Care Agent Care Teams Slicing Machine Feeder Relationship Specialty Start Date End Date Luis Fernando Rojas MD [address] [facility] [place] [address] PCP - General Family Medicine 09/23/16 documented as of this encounter
--- OUTSIDE RECORDS SUMMARY | 2024-01-09 10:11 | External Medical Summary | Summary of Care ---
Author Name Unknown Organization [facility] Address [address] [place] [address] Phone [phone] Care Team Providers Care Deputy Manager Name Role Phone Heber Rojas MD Primary Care Provider [phone] Reason for Visit * Reason Comments Medication Refill Encounter Details Date Type Department Care Team (Late st Contact Info) Description 09/09/2023 Refill [facility] [address] [place] [address] Heber Rojas MD [address] [place] [address] Hypothyroidism, unspecified type Allergies Active Allergy Reactions Criticality Noted Date Comments Salvador Inhibitors Other (Please comment) High 0 HyperKalemia documented as of this encounter (statuses as of 09/10/2023) Medications Medication Sig Dispensed Refills Start Date [...] off days. 120 mL 5 09/20/2021 Active NovoLOG FlexPen 100 UNIT/ML Subcutaneous Solution Pen-injector (insulin aspart) Inject with meals using CR of 1:4 plus CF 1:40 over 150 as directed by MTM (up to 100 units per day) 105 mL 3 11/23/2021 Active Lantus SoloStar 100 UNIT/ML Subcutaneous Solution Pen-injector (Insulin Glargine)Indicati ons:Type 2 diabetes mellitus with hemoglobin A1c goal of less than 7.0% ([facility]) Inject 16 Units under the skin in the morning. DX:E11.9 (replaces Basaglar). 30 mL 3 02/08/2022 Active ProRenal + D Oral Tablet Take [...] BY MOUTH EVERY EVENING 90 Tablet 3 08/16/2022 4 Discontinue d(Refill) Levothyroxine Sodium 100 MCG Oral Tablet (Levoxyl)Indicati ons:Hypothyroidis m, unspecified type TAKE 1 TABLET BY MOUTH DAILY AT LEAST 30 MINUTES PRIOR TO FIRST MEAL OF THE DAY OR OTHER MEDICATIONS 90 Tablet 3 08/15/2022 4 Discontinue d(Refill) Gabapentin 300 MG Oral Capsule (Neurontin) Take 1 Capsule by mouth at bedtime. Follow up with your primary care provider for further management. 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 10/15/2022 [facility] OTHER*[id number] 01/01/2022 S/P gastric bypass 01/01/2022 Marginal ulcer [...] Chronic Medication Regimen: Beta Ngoc Therapy: Carvedilol ASLVADOR Inhibitor/ARB Therapy: Other: none on hd Diuretic [...] as of this encounter (statuses as of 09/10/2023) Resolved Problems Problem Noted Date Diagnosed Date [...] Insulin long-term use 11/19/20182018 Overview: 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 11/19/2018 10/08/2022 [...] T-tube placement 04/16/2017 05/29/2017 [employer] Other*[id number] 04/13/2013 08/27/2016 Overview: Study Title: [employer] Markers for Patients with Cardiovascular Disease Project # [id number] Commercial Airline Pilot: Siena Laws MD [phone] Hypertensive heart disease 03/25/2013 1 07/29/2016 Neuropathy, [...] as of this encounter (statuses as of 09/10/2023) Immunizations Name Administration Dates Next Due COVID-19 [...] encounter Miscellaneous Notes * Telephone Encounter - Heber Rojas MD - 09/10/2023 8:03 PM ESTSigned Prescriptions: Disp Refills Levothyroxine Sodium 100 MCG Oral Tablet (*90 Tab*3 Sig: TAKE 1 TABLET BY MOUTH DAILY AT LEAST 30 MINUTES PRIOR TO FIRST MEAL OF THE DAY OR OTHER MEDICATIONS Authorizing Provider: HEBER ROJAS Gabapentin 300 MG Oral Capsule (Neurontin) 90 Cap*3 Sig: Take 1 Capsule by mouth at bedtime. Follow up with your prima care provider for further management. Authorizing Provider: HEBER ROJAS * Telephone Encounter - Rosy Scott [facility] - 09/10/2023 11:33 AM EST Pending Prescriptions: Disp Refills Levothyroxine Sodium 100 MCG Oral Tablet (*90 Tab*0 Sig: TAKE 1 TABLET BY MOUTH DAILY AT LEAST 30 MINUTES PRIOR TO FIRST MEAL OF THE DAY OR OTHER MEDICATIONS Gabapentin 300 MG Oral Capsule (Neurontin) 90 Cap*1 Sig: Take 1 Capsule by mouth at bedtime. Follow up with your primary care provider for further management. * Telephone Encounter - Rosy Scott [facility] - 09/10/2023 11:33 AM EST Unable to authorize medication refills for pended medication(s) at this time. Part of the protocol criteria used for refill authorization was not satisfied. Patient needs TSH. Lab appt scheduled for 10/08. Please approve if appropriate. Thank you, Rosy Scott, PharmD Clinical Pharmacist [facility] [phone] 09/10/2023, 11:33 AM * Telephone Encounter - Rosy Scott [facility] - 09/10/2023 11:32 AM EST Pending Prescriptions: Disp Refills Levothyroxine Sodium 100 MCG Oral Tablet *90 Tab*0 Sig: TAKE 1 TABLET BY MOUTH DAILY AT LEAST 30 MINUTES PRIOR TO FIRST MEAL OF THE DAY OR OTHER MEDICATIONS Gabapentin 300 MG Oral Capsule (Neurontin)90 Cap*1 Sig: Take 1 Capsule by mouth at bedtime. Follow up with your primary care provider for further management. Last Visit: 04/17/2023 (in office), 10/08/2022 (telemedicine) Next Visit: 10/16/2023 If no future appointments scheduled, and last appointment is greater than a year ago, please schedule patient for a follow-up appointment Last date the medication was ordered: 08/15/22, 03/21/23 Is this request for a controlled substance?No Urine Drug Screen:No results found. However, due to the size of the patient record, not all encounters were searched. Please check Results Review for a complete set of results. Patient Phone Numbers Labs: Lab Results Component Value Date/Time CREAT 4.4 (H) 12/19/2022 07:56 AM CREAT 3.0 (A) 06/13/2021 12:00 AM CREAT 1.7 (H) 04/26/2020 09:34 AM POTASSIUM 4.8 12/19/2022 07:56 AM POTASSIUM 3.9 12/11/2022 12:43 PM POTASSIUM 3.9 06/13/2021 12:00 AM POTASSIUM 4.4 04/26/2020 09:34 AM TSH 1.67 01/23/2022 08:48 AM TSH 1.58 04/26/2020 09:25 AM LDLCALC 16 07/01/2022 09:10 AM LDLCALC 23 03/17/2020 09:21 AM LDLDIRECT 32 05/18/2021 10:30 AM LDLDIRECT NOT APPLICABLE 12/09/2019 08:56 AM LDLDIRECT 49 08/26/2013 09:35 AM ALT 57 (H) 11/28/2022 12:30 PM ALT 57 (H) 03/17/2020 09:21 AM HGBA1C 7.8 (H) 12/12/2022 07:18 AM HGBA1C 7.6 (H) 04/26/2020 09:24 AM documented in this encounter Plan of Treatment Upcoming Encounters Date Type Department Care Team (Late st Contact Info) Description 09/16/2023 10:30 AM EST [facility] [address] [facility], [place] [address] [facility] [address] [place] [facility] [place] [address] 10/09/2023 9:00 AM EDT Laboratory Laboratory, [place] [address] [facility], [place] [address] [facility] [address] [facility], [place] [address] 10/16/2023 11:40 AM EDT Office Visit Family Practice, [place] [address] [facility], [place] [address] Heber Rojas MD [address] [place] [facility] [place] [address] 10/17/2023 8:00 AM EDT Telemedicine Nutrition & Weight Management, [facility] [address] [place] [address] Cleo Fonseca PA-C [address] [place] [address] 11/13/2023 9:40 AM EDT Office Visit Podiatry [facility] [address] [place] [address] Calli Avila DPM [address] [place] [address] 12/02/2023 11:20 AM EDT Office Visit Sleep Disorders Ctr [facility] [address] [place] [phone] Kelsey Garcia DO [address] [place] [address] Scheduled Procedures Name Priority Associated Diagnoses Date/Ti [...] this encounter Medical Devices Implanted Type Area Mobile Application Tester Device Identifier Shelf Expiration Date Model / Serial / Lot Coil Vortex 35 Pltinm [id number] - [id number] Implanted:Qty: 1 on 11/27/2021 by Sterling Cates MD at OR [facility] Right: Upper Arm [employer] : NEURO INTR [id number] 08/15/2024 [id number] / / [id number] Coil Vortex 35 Pltinm [id number] - [id number] Implanted:Qty: 1 on 11/27/2021 by Sterling Cates MD at OR [facility] Right: Upper Arm [employer] : NEURO INTR [id number] 08/15/2024 [id number] / / [id number] Coil Vortex 35 Pltinm [id number] - [id number] Implanted:Qty: 1 on 11/27/2021 by Sterling Cates MD at OR [facility] Right: Upper Arm [employer] : NEURO INTR [id number] 08/15/2024 [id number] / / [id number] Coil Vortex 35 Pltinm [id number] - [id number] Implanted:Qty: 1 on 11/27/2021 by Sterling Cates MD at OR [facility] Right: Upper Arm [employer] : NEURO INTR [id number] 05/16/2024 [id number] / / [id number] Azur 35 Detachable 5mm 11cm - [id number] Implanted:Qty: 1 on 03/19/2022 by Jose Devine MD at OR [facility] Right: Wrist [employer] [id number] 10/18/2025 [id number] / / [id number] Azur 35 Detachable 5mm 11cm - [id number] Implanted:Qty: 1 on 03/19/2022 by Jose Devine MD at OR [facility] Right: Wrist [employer] [id number] 06/19/2026 [id number] / / [id number] Mesh Flat Sheet 10x14 [id number] - [id number] Implanted:Qty: 1 on 12/11/2022 by Eros Dash MD at OR [facility] N/A: Abdomen CR BARD : DAVOL [id number] 06/17/2027 [id number] / / [id number] documented as of this encounter Visit Diagnoses Diagnosis Hypothyroidism, unspecified type documented in this encounter Advance Directives Documents on File Type Date Recorded Patient Candy Spreader Expl anation POLST 11/13/2020 POLST P[place]VA VALERIA [...] the patient have Health Care Power of Workers Compensation Attorney? No Full Code 01/28/2022 11:14 AM 01/28/2022 4:47 PM Full Code 05/22/2021 12:38 PM 05/22/2021 5:48 PM This order reflects the patients wishes and were consensually agreed upon. Question Answer Comments Discussion of Advance Directives occurred with: Not Discussed Does the patient have a Living Will? No Does the patient have Health Care Power of Workers Compensation Attorney? No Healthcare Agents on File Name Relationship [facility] Zhen Finley Spouse Health Care Agent Care Teams Deputy Manager Relationship Specialty Start Date End Date Heber Rojas MD [address] [place] [facility] [place] [address] PCP - General Family Medicine 09/23/16 documented as of this encounter
--- OUTSIDE RECORDS SUMMARY | 2024-01-09 10:11 | External Medical Summary | Summary of Care ---
Author Name Unknown Organization [facility] Address [address] [place] [address] Phone [phone] Care Team Providers Care Pockets And Pieces Necktie Operator Name Role Phone Luis Fernando Rojas MD Primary Care Provider [phone] Reason for Visit * Reason Comments Dosage Adjustment In Person (Anticoag Cl inic) Diabetes Follow-Up Encounter Details Date Type Department Care Team (Late st Contact Info) Description 10/14/2023 11:30 AM EDT Telemedicine Pharmacy, [place] [address] [place] [address] [facility] [address] [place] [address] Type 2 diabetes mellitus with hemoglobin A1c goal of less than 7.0% ([facility])* Allergies Active Allergy Reactions Criticality Noted Date Comments Salvador Inhibitors Other (Please comment) High 0 HyperKalemia documented as of this encounter (statuses as of 10/14/2023) Medications Medication Sig Dispensed Refills Start Date [...] directed. Replace every 14 days (supplied through [facility]) 7 Each 3 1 Active CPAP every [...] 90 Tablet 3 4 09/09/19 25 Active Insulin Glargine Solostar 100 UNIT/ML Subcutaneous Solution Pen-injector (Lantus SoloStar)Indicat ions:Type 2 diabetes mellitus with hemoglobin A1c goal of less than 7.0% (HCC) Inject 16 Units under the skin in the morning. 30 mL 3 4 Active NovoLOG FlexPen 100 UNIT/ML Subcutaneous Solution Pen-injector (insulin aspart)Indicatio ns:Type 2 diabetes mellitus with hemoglobin A1c goal of less than 7.0% (HCC) Inject 14 units with breakfast, 4 units with lunch, and 16 units with supper + CF 1:25 over 150. Follow chart provided by MTM on 10/14/23 45 mL 3 4 Active NovoLOG FlexPen 100 UNIT/ML Subcutaneous Solution Pen-injector (insulin aspart) Inject with meals using CR of 1:4 plus CF 1:40 over 150 as directed by MTM (up to 100 units per day) 105 mL 3 2 10/14/19 24 Discontinued(Ref ill) Insulin Glargine Solostar 100 UNIT/ML Subcutaneous Solution Pen-injector (Lantus SoloStar)Indicat ions:Type 2 diabetes mellitus with hemoglobin A1c goal of less than 7.0% ([facility]) Inject 18 Units under the skin in the morning 30 mL 3 4 10/14/19 24 Discontinued(Ref ill) NovoLOG FlexPen 100 UNIT/ML Subcutaneous Solution Pen-injector (insulin aspart)Indicatio ns:Type 2 diabetes mellitus with hemoglobin A1c goal of less than 7.0% ([facility]) 14-4-16 with respective meals +CF 1:25over 150[see chart provided by MTM on10/14/23] - max dose of 45 units per day 45 mL 3 4 10/14/19 24 Discontinued Hospital, Clinic, or Other Facility Administered Medication Ordered Dose Route Frequency Start Date End Date Status vitamin b-12 (Cyanocobalamin) inj 1,000 mcgIndications:S/P gastric bypass 1000 mcg IM [id number] 10/15/2022 07/19/2025 Active documented as of this encounter (statuses as of 10/14/2023) Active Problems Problem Noted Date Diagnosed Date [...] 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 Magallanes. Renae-Pao-Briana from -. 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 11/19/2018 10/08/2022 [...] T-tube placement 04/16/2017 05/29/2017 [employer] [facility] Other*[id number] 04/13/2013 08/27/2016 Overview: Study Title: Genomic Markers for Patients with Cardiovascular Disease Project # [id number] [place] Kiln Worker: Siena Laws MD [phone] Hypertensive heart disease 03/25/2013 1 07/29/2016 Neuropathy, [...] as of this encounter (statuses as of 10/14/2023) Immunizations Name Administration Dates Next Due COVID-19 [...] Influenza, Split, I IV3, With Preserve, Inj 05/21/2015,05/05/2014,04/01/2013,10/0 10/2011,05/21/2011,04/05/2010 TD, Preservative Free 04/12/2020 TDAP (age 8 [...] this encounter Progress Notes * Vera Langston, [facility] - 10/14/2023 11:24 AM EDT Images from the original note were not included. Patient location: HOME. I was in a hospital or clinic location. After connecting through [employer],patient was verified with two unique identifiers. Patient (or authorized legal event marketing representative) was then informed that this was [...] diabetic medications: DEC Lantus 16 units daily 18 units bc of higher sugars ADJ Novolog 12-2-14 with respective meals + CF 1:30 over 150 [see chart provided at bottom of note from 05/01/23] - max dose of 36 units per day Medication Injection Site: Abdomen Lifestyle: Diet: unchanged Glucose Review/SMBG: Readings obtained from patient device [...] hemoglobin A1c goal of less than 7.0% ([facility]) E11.9 Considerations: - dialysis MWF --> Tues/Thurs appts preferred - GLPs not a good option for patient per nephrology BG Readings - Blood sugars uncontrolled. Same trends identified. Decline in BG overnight. Lowest numbers in AM and then it climbs as day progresses with each meal. Medications - Reviewed current regimen, patient is not adherent to regimen. She self increased her lantus to 18 units every day due to her sugars being higher with lantus 16 units. Discussed with patient that her BG trend actually suggests overbasalization and a need for improved BG control with meals. Stressed that we need appropriate novolog doses, not more lantus. Advised a decrease in lantus a nd a new novolog chart was sent in the mail as well as through [facility]. Patient requested forms be mailed for Checkout10 again. Mailed them today and requested she returnwith the provider section blank. Will plan to apply for patient to receive humalog and basaglar from [facility]. Diet, Exercise, Lifestyle - No significant lifestyle changes since last visit. Patient did ask about GLPs for weight loss, but I advised she speak with her armament mechanic first. Patient is agreeable to SMBG with jennifer daily. Patient aware to contact clinic if any hypoglycemia before next visit. MEDICATION CHANGES: yes, see below; preferred pharmacy: [facility]) Diabetic Medications: DEC Lantus 16 units daily ADJ Novolog 14-4-16 with respective meals + CF 1:25 over 150 [see chart provided at bottom of note from 10/14/23] - max dose of 45 units per day HEALTH MAINTENANCE INTERVENTIONS: Labs: Ordered & Scheduled: HgA1c Immunizations:due for pneumo Foot Exam: Up to Date Eye Exam: due Annual Wellness Visit: Up to Date FOLLOW UP: Return to clinic in 4 weeks 11/11/2023 Vera Langston [facility] Clinical Pharmacist - Help Desk Consultant Medication Therapy Management Clinic 10/14/2023, 11:25 AM 10/14/23 Fast Acting Insulin: Novolog To find insulin dose: 1) Find the [...] Lunch PM Meal No Food 70 to 99 12 2 14 0 100 to 124 13 3 15 0 125 to 149 14 4 16 1 150 to 174 14 4 16 1 175 to 199 15 5 17 2 200 to 224 16 6 18 3 225 to 249 17 7 19 4 250 to 274 18 8 20 5 275 to 299 19 9 21 6 300 to 324 20 10 22 7 325 to 349 21 11 23 8 350 to 374 22 12 24 9 375 to 399 23 13 25 10 400 to 424 24 14 26 11 425 to 449 25 15 27 12 documented in this encounter Plan of Treatment Upcoming Encounters Date Type Department Care Team (Late st Contact Info) Description 10/16/2023 11:40 AM EDT Office Visit Family [facility], [place] [address] [facility] [address] [address] Luis Fernando Rojas MD [address] [facility] [address] 10/17/2023 8:00 AM EDT Telemedicine Nutrition & Weight Management, [facility] [address] [facility] [facility] [place] [address] Cleo Fonseca PA-C [address] [facility] [place] [address] 11/11/2023 2:30 PM EDT Telemedicine Pharmacy, [place] [address] [facility] [address] [place], [facility] [address] [facility] [place] [address] 11/13/2023 9:40 AM EDT Office Visit Podiatry [facility] [address] [facility] [place] [address] Calli Avila, DAIANA [address] [place] [address] 01/06/2024 3:00 PM EDT Office Visit [facility] Disorders Ctr [facility] [address] [place] [phone] Veena Rainey CRNP [address] [place] [address] Scheduled Orders Name Type Priority Associated Diagnoses Orde r Schedule HEMOGLOBIN A1C Lab Routine Type 2 diabetes mellitus with hemoglobin A1c goal of less than 7.0% (HCC) Expected: 10/21/2023 (Approximate), Expires: 10/13/2024 Scheduled Procedures Name Priority Associated Diagnoses Date/Ti [...] this encounter Medical Devices Implanted Type Area Clinical Trials Assistant Device Identifier Shelf Expiration Date Model / Serial / Lot Coil Vortex 35 Pltinm [id number] - [id number] Implanted:Qty: 1 on 11/27/2021 by Sterling Cates MD at [place] [facility] Right: Upper Arm [employer] : NEURO INTR [id number] 08/15/2024 [id number] Coil Vortex 35 Pltinm [id number] - [id number] Implanted:Qty: 1 on 11/27/2021 by Sterling Cates MD at [place] [facility] [place] Right: Upper Arm [employer] : NEURO INTR [id number] 08/15/2024 [id number] Coil Vortex 35 Pltinm [id number] - [id number] Implanted:Qty: 1 on 11/27/2021 by Sterling Cates MD at [place] [facility] [place] Right: Upper Arm [employer] : NEURO INTR [id number] 08/15/2024 [id number] Coil Vortex 35 Pltinm [id number] - [id number] Implanted:Qty: 1 on 11/27/2021 by Sterling Cates MD at [place] [facility] [place] Right: Upper Arm [employer] : NEURO INTR [id number] 05/16/2024 [id number] / / [id number] Azur 35 Detachable 5mm 11cm - [id number] Implanted:Qty: 1 on 03/19/2022 by Jose Devine MD at OR [facility] [place] Right: Wrist [employer] [id number] 10/18/2025 [id number] / / [id number] Azur 35 Detachable 5mm 11cm - [id number] Implanted:Qty: 1 on 03/19/2022 by Jose Devine MD at OR [facility] Right: Wrist [employer] [id number] 06/19/2026 [id number] / / [id number] Mesh Flat Sheet 10x14 [id number] - [id number] Implanted:Qty: 1 on 12/11/2022 by Eros Dash MD at OR [facility] N/A: Abdomen CR BARD : DAVOL [id number] 06/17/2027 [id number] / / [id number] documented as of this encounter Visit Diagnoses Diagnosis Type 2 diabetes mellitus with hemoglobin A1c goal of less than 7.0% (HCC)- Primary documented in this encounter Advance Directives Documents on File Type Date Recorded Patient Iron Erector Expl anation HENRY 11/13/2020 HENRY SHAW ORDERS [...] the patient have Health Care Power of Measurement Psychologist? No Full Code 01/28/2022 11:14 AM 01/28/2022 4:47 PM Full Code 05/22/2021 12:38 PM 05/22/2021 5:48 PM This order reflects the patients wishes and were consensually agreed upon. Question Answer Comments Discussion of Advance Directives occurred with: Not Discussed Does the patient have a Living Will? No Does the patient have Health Care Power of Measurement Psychologist? No Healthcare Agents on File Name Relationship Healthcare Agent [facility] p Communication Zhen Finley Spouse Health Care Agent Care Teams Pockets And Pieces Necktie Operator Relationship Specialty Start Date End Date Luis Fernando Rojas MD [address] [place] [facility] [place] [address] PCP - General Family Medicine 09/23/16 documented as of this encounter
--- OUTSIDE RECORDS SUMMARY | 2024-01-09 10:11 | External Medical Summary | Summary of Care ---
Author Name Unknown Organization [facility] Address [address] [place] [address] Phone [phone] Care Team Providers Care Drying Tunnel Operator Name Role Phone Luis Fernando Rojas MD Primary Care Provider Reason for Visit * Reason Comments Outpatient Testing Encounter Details Date Type Department Care Team (Late st Contact Info) Description 10/10/2023 8:10 AM EDT Laboratory Laboratory, [place] [address] [place] [phone] [place], Laboratory [address], [place] [phone] Type 2 diabetes mellitus with hemoglobin A1c goal of less than 7.0% ([facility]); Screening for thyroid disorder Allergies Active Allergy Reactions Criticality Noted Date Comments Salvador Inhibitors Other (Please comment) High 0 HyperKalemia documented as of this encounter (statuses as of 10/10/2023) Medications Medication Sig Dispensed Refills Start Date [...] per day) 105 mL 3 11/23/2021 Active ProRenal + D Oral Tablet Take [...] hemoglobin A1c goal of less than 7.0% (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 Magallanes. M-W-Briana from -. Has dialysis catheter in the [...] as of this encounter (statuses as of 10/10/2023) Resolved Problems Problem Noted Date Diagnosed Date [...] T-tube placement 04/16/2017 05/29/2017 [employer] [facility] Other*[id number] 04/13/2013 08/27/2016 Overview: Study Title: Genomic Markers for Patients with Cardiovascular Disease Project # [id number] Cast Iron Drain Pipe Layer: Siena Laws MD [phone] Hypertensive heart disease 03/25/2013 1 07/29/2016 Neuropathy, [...] as of this encounter (statuses as of 10/10/2023) Immunizations Name Administration Dates Next Due COVID-19 [...] Description 10/14/2023 11:30 AM EDT Telemedicine Pharmacy, [place] [address] [place] [address] [facility] [address] [place] [address] 10/16/2023 11:40 AM EDT Office Visit [facility], [place] [address] [place] [address] Luis Fernando Rojas MD [address] [place] [address] 10/17/2023 8:00 AM EDT Telemedicine Nutrition & Weight Management, [facility] [address] [place] [address] Cleo Fonseca PA-C [address] [place] [address] 11/13/2023 9:40 AM EDT Office Visit Podiatry [facility] [address] [place] [address] Calli Avila DPM [address] [place] [address] 01/06/2024 3:00 PM EDT Office Visit Sleep Disorders Ctr [facility] [address] [place] [phone] Veena Rainey CRNP [address] [place] [address] Scheduled Procedures Name Priority Associated Diagnoses Date/Ti [...] this encounter Medical Devices Implanted Type Area Bakery Associate Device Identifier Shelf Expiration Date Model / Serial / Lot Coil Vortex 35 Pltinm [id number] - [id number] Implanted:Qty: 1 on 11/27/2021 by Sterling C[place] [facility] [place] Upper Arm [employer] : NEURO INTR [id number] 08/15/2024 [id number] / / [id number] Coil Vortex 35 Pltinm [id number] - [id number] Implanted:Qty: 1 on 11/27/2021 by Sterling Cates MD [place] [facility] [place]: Upper Arm [employer] : NEURO INTR [id number] 08/15/2024 [id number] / / [id number] Coil Vortex 35 Pltinm [id number] - [id number] Implanted:Qty: 1 on 11/27/2021 by Sterling Cates MD [place] [facility] [place]: Upper Arm [employer] : NEURO INTR [id number] 08/15/2024 [id number] / / [id number] Coil Vortex 35 Pltinm [id number] - [id number] Implanted:Qty: 1 on 11/27/2021 by Sterling Cates MD [place] [facility] [place]: Upper Arm [employer] : NEURO INTR [id number] 05/16/2024 [id number] / / [id number] Azur 35 Detachable 5mm 11cm - [id number] Implanted:Qty: 1 on 03/19/2022 by Jose Devine MD [place] [facility] [place]: Wrist [employer] [id number] 10/18/2025 [id number] / / [id number] Azur 35 Detachable 5mm 11cm - [id number] Implanted:Qty: 1 on 03/19/2022 by Jose Devine MD [place] [facility] [place]: Wrist [employer] [id number] 06/19/2026 [id number] / / [id number] Mesh Flat Sheet 10x14 [id number] - [id number] Implanted:Qty: 1 on 12/11/2022 by Eros Dash MD [place] [facility] [place]/A: Abdomen CR BARD : DAVOL [id number] 06/17/2027 [id number] / / [id number] documented as of this encounter Visit Diagnoses Diagnosis Type 2 diabetes mellitus with hemoglobin A1c goal of less than 7.0% ([facility]) Screening for thyroid disorder documented in this encounter Advance Directives Documents on File Type Date Recorded Patient Satellite Television Installer Expl anation POLST 11/13/2020 POLST [place] [...] the patient have Health Care Power of Blast Furnace Auxiliaries Supervisor? No Full Code 01/28/2022 11:14 AM 01/28/2022 4:47 PM Full Code 05/22/2021 12:38 PM 05/22/2021 5:48 PM This order reflects the patients wishes and were consensually agreed upon. Question Answer Comments Discussion of Advance Directives occurred with: Not Discussed Does the patient have a Living Will? No Does the patient have Health Care Power of Blast Furnace Auxiliaries Supervisor? No Healthcare Agents on File Name Relationship Healthcare Agent Relationshi p Communication Zhen Finley Spouse Health Care Agent Care Teams Drying Tunnel Operator Relationship Specialty Start Date End Date Luis Fernando Rojas MD [address] [place] [address] PCP - General Family Medicine 09/23/16 documented as of this encounter
--- OUTSIDE RECORDS SUMMARY | 2024-01-09 10:11 | External Medical Summary | Summary of Care ---
Author Name Unknown Organization [facility] Address [address] [place] [address] Phone [phone] Care Team Providers Care Tandem Operator Name Role Phone Luis Fernando Rojas MD Primary Care Provider [phone] Reason for Referral * Evaluate & Treat - Unlimited Visits (Within 10 days (routine)) - Authorized Specialty Diagnoses / Procedures Referred By Mikey torres Referred To Contact Orthopaedic Surgery / Orthopedics Diagnoses Arthralgia of knee, unspecified laterality Luis Fernando Rojas MD [address] [place] [address] Referral ID Status Reason Start Date Expiration Date Visits Requested Visits Authorized [id number] Authorized Specialty Services Required 10/16/2023 999 999 Question Answer Referral Priority Within 10 days (routine) Where should this appointment be scheduled? [facility] What body part is the patient being seen for? Thigh/Knee What condition is the patient being seen for? Arthritis including related infection Reason for Visit * Reason Onset Date Comments Referral 10/16/2023 Encounter Details Date Type Department Care Team (Late st Contact Info) Description 10/16/2023 Telephone Care Coordination and Integration [address] [place], [place] [phone] Adrianna Garg, JOHN [address], [place] [phone] Referral Allergies Active Allergy Reactions Criticality Noted Date Comments Salvador Inhibitors Other (Please comment) High 05/17/201 0 HyperKalemia documented as of this encounter (statuses as of 10/16/2023) Medications Medication Sig Dispensed Refills Start Date [...] hemoglobin A1c goal of less than 7.0% ([facility]) Inject 14 units with breakfast, 4 units with lunch, and 16 units with supper + CF 1:25 over 150. 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 10/15/2022 [facility] RESEARCH OTHER*[id number] 01/01/2022 S/P gastric bypass 01/01/2022 Marginal ulcer [...] as of this encounter (statuses as of 10/16/2023) Resolved Problems Problem Noted Date Diagnosed Date [...] T-tube placement 04/16/2017 05/29/2017 [employer] Other*[id number] 04/13/2013 08/27/2016 Overview: Study Title: Genomic Markers for Patients with Cardiovascular Disease Project # [id number] Cashier Payments Received: Siena Laws MD [phone] Hypertensive heart disease 03/25/2013 1 07/29/2016 Neuropathy, [...] as of this encounter (statuses as of 10/16/2023) Immunizations Name Administration Dates Next Due COVID-19 [...] encounter Miscellaneous Notes * Telephone Encounter - Luis Fernando Rojas MD - 10/16/2023 3:22 PM EDT She could be seen by sports med. * Telephone Encounter - Adrianna Garg RN - 10/16/2023 2:[address] Rojas, I spoke with Candi today, she states she is having pain to her knees, having a hard time doing steps, she is wanting to go to orthopedics to get "gel shots" to her knees, says she had them in the past& they have helped her knee pain. Please sign the attached referral, patient has not preferencewhere she goes thanks Adrianna Garg, RN documented in this encounter Plan of Treatment Upcoming Encounters Date Type Department Care Team (Late st Contact Info) Description 10/17/2023 8:00 AM EDT Telemedicine Nutrition & Weight Management, [facility] [address] [facility] [place] [address] Cleo Fonseca PA-C [address] [facility] [place] [address] 11/04/2023 10:00 AM EDT Office Visit [place] [address] [place] [phone] Luis Feranndo Rojas MD [address] [place] [address] 11/11/2023 2:30 PM EDT Telemedicine Pharmacy, [place] [address] [place] [address] [facility] [address] [place] [address] 11/13/2023 9:40 AM EDT Office Visit Podiatry [facility] [address] [facility] [place] [address] Calli Avila DPM [address] [place] [address] 01/06/2024 3:00 PM EDT Office Visit Sleep Disorders Ctr [facility] [address] [place] [address] Veena Rainey CRNP [address] [place] [address] Scheduled Procedures Name Priority Associated Diagnoses Date/Ti me COLONOSCOPY FLEXIBLE PROXIMA L DIAGNOSTIC Recall History of colonic polyps Scheduled Referrals Name Type Priority Associated Diagnoses Orde r Schedule ORTHOPAEDICS REFERRAL OP Referral Within 10 days (routine) Arthralgia of knee, unspecified laterality Ordered: 10/16/2023 Health Maintenance Due Date Last Done Comments [...] this encounter Medical Devices Implanted Type Area Optician Device Identifier Shelf Expiration Date Model / Serial / Lot Coil Vortex 35 Pltinm [id number] - [id number] Implanted:Qty: 1 on 11/27/2021 by Sterling Cates MD at [place] [facility] [place] Right: Upper Arm [employer] : NEURO INTR [id number] 08/15/2024 [id number] / / [id number] Coil Vortex 35 Pltinm [id number] - [id number] Implanted:Qty: 1 on 11/27/2021 by Sterling Cates MD at OR [facility] [place] Right: Upper Arm [employer] : NEURO INTR [id number] 08/15/2024 [id number] / / [id number] Coil Vortex 35 Pltinm [id number] - [id number] Implanted:Qty: 1 on 11/27/2021 by Sterling Cates MD at [place] [facility] [place] Right: Upper Arm [employer] : NEURO INTR [id number] 08/15/2024 [id number] / / [id number] Coil Vortex 35 Pltinm [id number] - [id number] Implanted:Qty: 1 on 11/27/2021 by Sterling Cates MD at [place] [facility] [place] Right: Upper Arm [employer] : NEURO INTR [id number] 05/16/2024 [id number] / [id number] Azur 35 Detachable 5mm 11cm - [id number] Implanted:Qty: 1 on 03/19/2022 by Jose Devine MD at OR [facility] [place] Right: Wrist [employer] [id number] 10/18/2025 [id number] / / [id number] Azur 35 Detachable 5mm 11cm - [id number] Implanted:Qty: 1 on 03/19/2022 by Jose Devine MD at OR [facility] [place] Right: Wrist [employer] [id number] 06/19/2026 [id number] / / [id number] Mesh Flat Sheet 10x14 [id number] - [id number] Implanted:Qty: 1 on 12/11/2022 by Eros Dash MD at OR [facility] [place] N/A: Abdomen CR BARD : DAVOL [id number] 06/17/2027 [id number] / / [id number] documented as of this encounter Visit Diagnoses Diagnosis Arthralgia of knee, unspecified laterality- Primary documented in this encounter Advance Directives Documents on File Type Date Recorded 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 No Full Code 01/28/2022 11:14 AM 01/28/2022 4:47 PM Full Code 05/22/2021 12:38 PM 05/22/2021 5:48 PM This order reflects the patients wishes and were consensually agreed upon. Question Answer Comments Discussion of Advance Directives occurred with: Not Discussed Does the patient have a Living Will? No Does the patient have Health Care Power of Patient Registrar? No Healthcare Agents on File Name Relationship Healthcare Agent [facility] laisha Communication Zhen Malia Spouse Health Care Agent Care Teams Tandem Operator Relationship Specialty Start Date End Date Luis Fernando Rojas MD [address] [place] [address] PCP - General Family Medicine 09/23/16 documented as of this encounter
--- OUTSIDE RECORDS SUMMARY | 2024-01-09 10:11 | External Medical Summary | Summary of Care ---
Author Name Unknown Organization [facility] Address [address] [place] [address] Phone [phone] Care Team Providers Care Delphi Programmer Name Role Phone Luis Fernando Rojas MD Primary Care Provider [phone] Reason for Visit * Reason Comments Appointment Encounter Details Date Type Department Care Team (Late st Contact Info) Description 09/30/2023 6:10 PM EDT Pharmacy Pharmacy, [place] [address] [place] [address] [facility] [address] [place] [address] Type 2 diabetes mellitus with hemoglobin A1c goal of less than 7.0% ([facility] Allergies Active Allergy Reactions Criticality Noted Date Comments Salvador Inhibitors Other (Please comment) High 0 HyperKalemia documented as of this encounter (statuses as of 09/30/2023) Medications Medication Sig Dispensed Refills Start Date End Date Status Melatonin 10 MG Tablet Take 12 mg by mouth at bedtime. 0 Active Aspirin 81 MG Oral Tablet ChewableIndication s:Type 2 diabetes mellitus 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 dialysis, with long-term current use of insulin ([facility]) Take 1 Tab by mouth at bedtime. [...] SoloStar 100 UNIT/ML Subcutaneous Solution Pen-injector (Insulin Glargine)Indicatio ns:Type 2 diabetes mellitus with hemoglobin A1c goal of less than 7.0% ([facility]) Inject 16 Units under the skin in [...] EVENING 90 Tablet 3 09/10/2023 5 Active Hospital, Clinic, or Other Facility Administered Medication Ordered Dose Route Frequency Start Date End Date Status vitamin b-12 (Cyanocobalamin) inj 1,000 mcgIndications:S/P gastric bypass 1000 mcg IM [id number] 10/15/2022 07/19/2025 Active documented as of this encounter (statuses as of 09/30/2023) Active Problems Problem Noted Date Diagnosed Date [...] 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 10/15/2022 [facility] RESEARCH OTHER*[id number] 01/01/2022 S/P gastric bypass 01/01/2022 Marginal ulcer [...] as of this encounter (statuses as of 09/30/2023) Resolved Problems Problem Noted Date Diagnosed Date [...] T-tube placement 04/16/2017 05/29/2017 [employer] Other*[id number] 04/13/2013 08/27/2016 Overview: Study Title: Genomic Markers for Patients with Cardiovascular Disease Project # [id number] Embossing Toolsetter: Siena Laws MD [phone] Hypertensive heart disease 03/25/2013 1 07/29/2016 Neuropathy, [...] as of this encounter (statuses as of 09/30/2023) Immunizations Name Administration Dates Next Due COVID-19 [...] as of this encounter Progress Notes * Bridget Gomez PHARM Tech - 09/30/2023 9:15 AM EDT Patient Phone Numbers Left message on patients answering machine to schedule [facility] appointment for diabetes management. [facility] message sent --no Clinic will follow up again in 4 week(s). [Attempt # 2] Thank you, Bridget Gomez Reading Specialist [facility] ([facility]) (formerly Telepharmacy) [phone] 09/30/2023,9:16 AM documented in this encounter Plan of Treatment Upcoming Encounters Date Type Department Care Team (Late st Contact Info) Description 10/09/2023 9:00 AM EDT Laboratory Laboratory, [place] [address] [place] [phone] [facility] [place] [address] 10/16/2023 11:40 AM EDT Office Visit [facility] [address] [place] [address] Luis Fernando Rojas MD [address] [place] [facility] [place] [address] 10/17/2023 8:00 AM EDT Telemedicine Nutrition & Weight Management, [facility] [address] [facility] [place] [address] Cleo Fonseca PA-C [address] [facility] [place] [address] 10/29/2023 6:10 PM EDT Pharmacy Pharmacy, [place] [address] [place] [address] [facility] [address] [place] [address] 11/13/2023 9:40 AM EDT Office Visit Podiatry [facility] [address] [facility] [place] [address] Calli Avila, DPRenae 132 [facility] [place] [address] 12/02/2023 11:20 AM EDT Office Visit Sleep Disorders Ctr [facility] [address] [facility] [place] [phone] Kelsey Garcia, [address] [facility] [place] [address] Scheduled Procedures Name Priority Associated Diagnoses Date/Ti [...] this encounter Medical Devices Implanted Type Area Pull Over Machine Operator Device Identifier Shelf Expiration Date Model / Serial / Lot Coil Vortex 35 Pltinm [id number] - [id number] Implanted:Qty: 1 on 11/27/2021 by Sterling Cates MD at OR [facility] [place] Right: Upper Arm [employer] : NEURO INTR [id number] 08/15/2024 [id number] / / [id number] Coil Vortex 35 Pltinm [id number] - [id number] Implanted:Qty: 1 on 11/27/2021 by Sterling Cates MD at OR [facility] [place] Right: Upper Arm [employer] : NEURO INTR [id number] 08/15/2024 [id number] / / [id number] Coil Vortex 35 Pltinm 787464 - [id number] Implanted:Qty: 1 on 11/27/2021 by Sterling Cates MD at OR [facility] [place] Right: Upper Arm [employer] : NEURO INTR [id number] 08/15/2024 [id number] / / [id number] Coil Vortex 35 Pltinm [id number] - [id number] Implanted:Qty: 1 on 11/27/2021 by Sterling Cates MD at OR [facility] [place] Right: Upper Arm [employer] : NEURO INTR [id number] 05/16/2024 [id number] / / [id number] Azur 35 Detachable 5mm 11cm - [id number] Implanted:Qty: 1 on 03/19/2022 by Jose Devine MD at OR [facility] [place] Right: Wrist [employer] [id number] 10/18/2025 [id number] / / [id number] Azur 35 Detachable 5mm 11cm - [id number] Implanted:Qty: 1 on 03/19/2022 by Jose Devine MD at OR [facility] [place] Right: Wrist [employer] [id number] 06/19/2026 [id number] / / [id number] Mesh Flat Sheet 10x14 [id number] - [id number] Implanted:Qty: 1 on 12/11/2022 by Eros Dash MD at OR [facility] [place] N/A: Abdomen CR BARD : DAVOL [id number] 06/17/2027 [id number] / / [id number] documented as of this encounter Visit Diagnoses Diagnosis Type 2 diabetes mellitus with hemoglobin A1c goal of less than 7.0% (HCC)- Primary documented in this encounter Advance Directives Documents on File Type Date Recorded Patient Research Coordinator Expl anation POLST 11/13/2020 POLST NASREEN SHAW [...] the patient have Health Care Power of Pallet Rectifier? No Full Code 01/28/2022 11:14 AM 01/28/2022 4:47 PM Full Code 05/22/2021 12:38 PM 05/22/2021 5:48 PM This order reflects the patients wishes and were consensually agreed upon. Question Answer Comments Discussion of Advance Directives occurred with: Not Discussed Does the patient have a Living Will? No Does the patient have Health Care Power of Pallet Rectifier? No Healthcare Agents on File Name Relationship Healthcare Agent Relationshi p Communication Zhen Finley Spouse Health Care Agent Care Teams Delphi Programmer Relationship Specialty Start Date End Date Luis Fernando Rojas MD [address] [place] [address] PCP - General Family Medicine 09/23/16 documented as of this encounter
--- OUTSIDE RECORDS SUMMARY | 2024-01-09 10:11 | External Medical Summary | Summary of Care ---
Author Name Unknown Organization [facility] Address [address] [place] [address] Phone [phone] Care Team Providers Care On Site Soil Evaluator Name Role Phone Heber Rojas MD Primary Care Provider [phone] Reason for Visit * Reason Comments Medication Refill Encounter Details Date Type Department Care Team (Late st Contact Info) Description 09/09/2023 Refill [facility] [address] [place] [address] Gianni Toussaint MD Dyslipidemia, goal LDL below 100 Allergies Active Allergy Reactions Criticality Noted Date [...] hemoglobin A1c goal of less than 7.0% ([facility]) Use 4 times daily with insulin 400 [...] EVENING 90 Tablet 3 09/10/2023 5 Active Atorvastatin Calcium 40 MG Oral Tablet (Lipitor)Indicati ons:Dyslipidemia, goal LDL below 100 TAKE ONE TABLET BY MOUTH EVERY EVENING 90 Tablet 3 08/16/2022 4 Discontinue d(Refill) Hospital, Clinic, or Other Facility Administered Medication Ordered Dose Route Frequency Start Date End Date Status vitamin b-12 (Cyanocobalamin) inj 1,000 mcgIndications:S/P gastric bypass 1000 mcg IM [id number] 10/15/2022 07/19/2025 Active documented as of this [...] 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 Magallanes. M-W-F from -5. Has dialysis catheter in the chest. Plan [...] 10/08/2022 Insulin long-term use 11/19/20182018 Overview: Duplicate director long term care (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 insulin 11/19/2018 10/08/2022 [...] T-tube placement 04/16/2017 05/29/2017 [employer] Other*[id number] 04/13/2013 08/27/2016 Overview: Study Title: Genomic Markers for Patients with Cardiovascular Disease Project # [id number] Sap Director: Siena Laws MD [phone] Hypertensive heart disease 03/25/2013 1 07/29/2016 Neuropathy, [...] Encounter - Heber Rojas MD - 09/10/2023 8:08 PM ESTSigned Prescriptions: Disp Refills Atorvastatin Calcium 40 MG Oral Tablet (Li*90 Tab*3 Sig: TAKE ONE TABLET BY MOUTH EVERY EVENING Authorizing Provider: HEBER ROJAS * Telephone Encounter - Winnie Ureña LPN - 09/10/2023 4:09 PM ESTPending Prescriptions: Disp Refills Atorvastatin Calcium 40 MG Oral Tablet (Li*90 Tab*3 Sig: TAKE ONE TABLET BY MOUTH EVERY EVENING * Telephone Encounter - Winnie Ureña LPN - 09/10/2023 8:48 AM EST Did you pend patient's preferred pharmacy and medication before forwarding?yes Pharmacy: [facility] Pending Prescriptions: Disp Refills Atorvastatin Calcium 40 MG Oral Tablet (L*90 Tab*3 Sig: TAKE ONE TABLET BY MOUTH EVERY EVENING Last Visit: Visit date not found (in office), 03/21/2023 (telemedicine) Next Visit: Visit date not found If no future appointments scheduled, and last appointment is greater than a year ago, please schedule patient for a follow-up appointment Last date the medication was ordered: 06/08/23 Is this request for a controlled substance?No [...] AM HGBA1C 7.6 (H) 04/26/2020 09:24 AM * Telephone Encounter - Fabio Gates, [facility] - 09/10/2023 8:27 AM EST Pending Prescriptions: Disp Refills Atorvastatin Calcium 40 MG Oral Tablet (Li*90 Tab*3 Sig: TAKE ONE TABLET BY MOUTH EVERY EVENING documented in this encounter Plan of Treatment Upcoming Encounters Date Type Department Care Team (Late st Contact Info) Description 09/16/2023 10:30 AM EST [facility]medicine Pharm[facility] [place] [address] [facility] [address] [facility] [address] [facility] [address] 10/09/2023 9:00 AM EDT Laboratory Laboratory, [place] [address] [facility] [phone] [facility] [address] [place] [facility] [place] [address] 10/16/2023 11:40 AM EDT Office Visit Family Practice, [place] [address] [facility] [phone] Heber Rojas MD [address] [facility] [address] 10/17/2023 8:00 AM EDT Telemedicine Nutrition & Weight Management, [address] [place] [address] Cleo Fonseca PA-C [address] [place] [address] 11/13/2023 9:40 AM EDT Office Visit Podiatry [facility] [address] [place] [address] Calli Avila, DPM [address] [place] [address] 12/02/2023 11:20 AM EDT Office Visit Sleep Disorders Ctr [facility] [address] [place] [phone] Kelsey Garcia DO [address] [place] [address] Scheduled Procedures Name Priority Associated Diagnoses Date/Ti [...] this encounter Medical Devices Implanted Type Area Visual Stylist Device Identifier Shelf Expiration Date Model / Serial / Lot Coil Vortex 35 Pltinm [id number] - [id number] Implanted:Qty: 1 on 11/27/2021 by Sterling Cates MD at [place] [facility] [place]: Upper Arm [employer] : NEURO INTR [id number] 08/15/2024 [id number] Coil Vortex 35 Pltinm [id number] - [id number] Implanted:Qty: 1 on 11/27/2021 by Sterling Cates MD at [place] [facility] [place] Right: Upper Arm [employer] : NEURO INTR [id number] 08/15/2024 [id number] Coil Vortex 35 Pltinm 258816 - [id number] Implanted:Qty: 1 on 11/27/2021 by Sterling Cates MD at [place] [facility] [place] Right: Upper Arm [employer] : NEURO INTR [id number] 08/15/2024 [id number] Coil Vortex 35 Pltinm [id number] - [id number] Implanted:Qty: 1 on 11/27/2021 by Sterling Cates MD at [place] [facility] [place] Right: Upper Arm [employer] : NEURO INTR [id number] 05/16/2024 [id number] 1 / [id number] Azur 35 Detachable 5mm 11cm - [id number] Implanted:Qty: 1 on 03/19/2022 by Jose Devine MD at [place] [facility] [place] Right: Wrist [employer] [id number] 10/18/2025 [id number] / / [id number] Azur 35 Detachable 5mm 11cm - [id number] Implanted:Qty: 1 on 03/19/2022 by Jose Devine MD at [place] [facility] [place] Right: Wrist [employer] [id number] 06/19/2026 [id number] / / [id number] Mesh Flat Sheet 10x14 [id number] - [id number] Implanted:Qty: 1 on 12/11/2022 by Eros Dash MD at [place] [facility] [place] N/A: Abdomen CR BARD : DAVOL [id number] 06/17/2027 [id number] / / [id number] documented as of this encounter Visit Diagnoses Diagnosis Dyslipidemia, goal LDL below 100 Other and unspecified hyperlipidemia documented in this encounter Advance Directives Documents on File Type Date Recorded Patient Replenishment Buyer Expl anation HENRY 11/13/2020 HENRY NASREEN [place] ORDERS FOR LIFE-SUSTAINING TREATMENT Latest Code [...] the patient have Health Care Power of Starch Treating Assistant? No Full Code 01/28/2022 11:14 AM 01/28/2022 4:47 PM Full Code 05/22/2021 12:38 PM 05/22/2021 5:48 PM This order reflects the patients wishes and were consensually agreed upon. Question Answer Comments Discussion of Advance Directives occurred with: Not Discussed Does the patient have a Living Will? No Does the patient have Health Care Power of Starch Treating Assistant? No Healthcare Agents on File Name Relationship Healthcare [facility] Communication Zhen Finley Spouse Health Care Agent Care Teams On Site Soil Evaluator Relationship Specialty Start Date End Date Heber Rojas MD [address] [place] [address] PCP - General Family Medicine 09/23/16 documented as of this encounter
--- OUTSIDE RECORDS SUMMARY | 2024-01-09 10:11 | External Medical Summary | Summary of Care ---
Author Name Unknown Organization [facility] Address [address] [place] [address] Phone [phone] Care Team Providers Care Plater Production Name Role Phone Luis Fernando Rojas MD Primary Care Provider [phone] Reason for Visit * Evaluate & Treat - Unlimited Visits (Within 30 days (routine)) - Authorized Specialty Diagnoses / Procedures Referred By Contact Referred To Contact GI NUTRITION/IM / Gastroenterology Diagnoses Morbid obesity with BMI of 40.0-44.9, adult (HCC) Luis Fernando Rojas MD [address] [place] [address] Referral ID Status Reason Start Date Expiration Date Visits Requested Visits Authorized [id number] Authorized Specialty Services Required 09/03/[phone] Encounter Details Date Type Department Care Team (Late st Contact Info) Description 10/17/2023 8:00 AM EDT Telemedicine Nutrition & Weight Management, [facility] [address] [place] [address] Cleo Fonseca PA-C [address] [place] [address] Morbid obesity with BMI of 40.0-44.9, adult (HCC)*; Intestinal postoperative nonabsorption Allergies Active Allergy Reactions Criticality Noted Date [...] Replace every 14 days (supplied through [facility]) 7 Each 3 [...] goal of less than 7.0% ([facility]) Inject 14 units with breakfast, 4 units with lunch, and 16 units with supper + CF 1:25 over 150. Follow chart provided by MTM on 10/14/23 45 mL 3 10/14/2023 Active Hospital, Clinic, or Other Facility Administered Medication Ordered Dose Route Frequency Start Date End Date Status vitamin b-12 (Cyanocobalamin) inj 1,000 mcgIndications:S/P gastric bypass 1000 mcg IM [id number] 10/15/2022 07/19/2025 Active vitamin b-12 (Cyanocobalamin) inj 1,000 mcgIndications:Morbid obesity with BMI of 40.0-44.9, adult ([facility]),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 [id number] 10/17/2023 12/11/19 25 Active documented as of [...] 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 10/15/2022 [facility] OTHER*[id number] 01/01/2022 S/P gastric bypass 01/01/2022 Marginal ulcer [...] Morbid obesity with BMI of 40.0-44.9, adult /09/2020 Postsurgical malabsorption, not elsewhere classi fied 10/10/2020 [...] 10/08/2022 Insulin long-term use 11/19/20182018 Overview: Duplicate long term care social worker (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 insulin 11/19/2018 10/08/2022 Morbid [...] T-tube placement 04/16/2017 05/29/2017 [employer] Other*[id number] 04/13/2013 08/27/2016 Overview: Study Title: [employer] Markers for Patients with Cardiovascular Disease Project # [id number] Battery Container Tester Aluminum: Siena Laws MD [phone] Hypertensive heart disease 03/25/2013 1 07/29/2016 Neuropathy, [...] of this encounter Progress Notes * Cleo Fonseca PA-C - 10/17/2023 7:58 AM EDT [facility] Post Revision Patient location: HOME. I was not in a hospital or clinic location. After connecting through televideo, patient was verified with two unique identifiers. Patient (or authorized legal accounts payable representative) was then informed that this was a Telemedicine visit and being conducted confidentially over secure lines. Methods to assure confidentiality were taken. Patient acknowledged consent and understanding of privacy and security of the Telemedicine visit. The patient agreed to participate. There are no exam notes on file for this visit. Referring physician: Luis Fernando Rojas MD Candi Finley is a 62 year old female who presents in follow up to the comprehensive weight management clinic. HPI Pt is s/p Laparoscopic revision gastrojejunal anastomosis with reconstruction with vagotomy 2/2 marginal ulcer/bleeding on 01/28/22 - H/o laparoscopic Gastric Bypass by Dr. Polanco on April 16, 2017. - H/o hernia repair on 04/25/17. - History of ESRD on HD since 01/2021 - Weight at the initial clinic visit 295 lbs - Weight at the time of the revision 243 lbs - Today's weight: 240 lbs - Total weight loss of -3 lbs since surgery, and -49 lbs since initial weight in clinic - Patient's last follow up with GI/Nutrition was on 08/20/22 Wt Readings from Last 5 Encounters: 08/05/23 109.8 kg (242 lb) 06/24/23 109.7 kg (241 lb 12 oz) 06/17/23 107.8 kg (237 lb 9.6 oz) 05/13/23 108 kg (238 lb) 04/17/23 107.1 kg (236 lb 3.2 oz) 10/17/2023 -annual follow up -weight is stable [...] month post op Admitted with ANASTASIIA at [facility] - going home today Dialysis 3 days a week 02/28/22 -1 month post op 02/07/22 -7-10 day post op Current recommended meal plan: Stage 4: Describes typical diet history/24 hr recall Current diet: Breakfast: banana and egg sandwich on 647 bread Snack: protein bar (from dialysis) Lunch: leftovers-always different; yesterday tuna salad, lacy tomatoes Snack: soft pretzel Dinner: noodles, red grapefruit Snack: small bag of chips Drinks: water, decaf iced tea Restaurant meals: 2x per week Patient is not getting 60 grams of protein a day. Patient is not getting 64 ounces of fluid a day. 40 oz of fluid per day - limit d/t dialysis-- fluid restriction Activity Level: Very light activity TYPE/DURATION: ADL Psychosocial Adjustment Issues: No, no Issues with body image, stress management, relationships and addiction transfer-- doing better this year Alcohol Use: None Tobacco Use: Never Substance Abuse: None Past Medical History Hypertension: Yes, multiple medications Dyslipidemia: Yes, on treatment Sleep Apnea: Yes, on CPAP - Diabetes: Yes Insulin GERD: Yes: Requiring medications: Yes Patient Active Problem List Diagnosis Code Dyslipidemia, goal LDL below 100 E78.5 HX-MALIG SKIN MELANOMA - MIS L 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 Z85.820 Type 2 diabetes mellitus with hemoglobin A1c goal of less than 7.0% ([facility]) E11.9 Vitamin D deficiency E55.9 HTN, goal below 140/90 I10 Major depressive disorder, recurrent episode, moderate with seasonal pattern ([facility]) F33.1 Rosacea L71.9 Hypothyroidism (acquired) E03.9 Mitral annular calcification I34.81 Type 2 diabetes mellitus with diabetic polyneuropathy, with long-term current use of insulin ([facility]) E11.42, Z79.4 Chronic diastolic heart failure ([facility]) I50.32 History of endometrial cancer Z85.42 Hyperparathyroidism, secondary renal ([facility]) N25.81 MINISTERIO on CPAP G47.33 Stable proliferative diabetic retinopathy of both eyes associated with type 2 diabetes mellitus ([facility]) E11.3553 SALVADOR inhibitor intolerance Z78.9 SSS (sick sinus syndrome) ([facility]) I49.5 PAT (paroxysmal atrial tachycardia) I47.19 Gastroesophageal reflux disease without esophagitis K21.9 Hypertensive 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 congestive heart failure and stage 5 chronic kidney disease on chronic dialysis ([facility]) I13.2, I50.32, Z99.2, N18.6 Morbid obesity with BMI of 40.0-44.9, adult ([facility]) E66.01, Z68.41 Postsurgical malabsorption, not elsewhere classified K91.2 Diabetic gastroparesis ([facility]) E11.43, K31.84 Type 2 diabetes mellitus 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 dialysis, with long-term current use of insulin ([facility]) E11.22, N18.6, Z99.2, Z79.4 Presence of cardiac pacemaker Z95.0 ESRD (end stage renal disease) on dialysis ([facility]) N18.6, Z99.2 Marginal ulcer K28.9 Aortic atherosclerosis ([facility]) I70.0 [facility] OTHER*[id number] S/P gastric bypass Z98.84 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 ([facility]) E11.3533 Other specified glaucoma H40.89 Pulmonary hypertension, unspecified ([facility]) I27.20 Recurrent ventral incisional hernia K43.2 Social Connections: Not on file Review of patient's allergies indicates: Allergen Reactions Salvador Inhibitors Other (Please comment) HyperKalemia Taking supplements as ordered for each of the following: Multivitamin- Pro Renal + Vit D and generic childrens chewable two daily Calcium- calcium citrate 1 daily Vitamin D- 1000 IU [id number] away from that Other for hair-- biotin Current Outpatient Medications Medication Sig Dispense Refill Melatonin 10 MG Tablet Take 12 mg by mouth at bedtime. Aspirin 81 MG Oral Tablet Chewable Take 1 Tab by mouth at bedtime. with food. 90 Tab 3 FreeStyle Jennifer 2 Sensor Use as directed. Replace every 14 days (supplied through [facility]) 7 Each 3 CPAP every night at bedtime. 12 Ketoconazole 2 % External Shampoo (Nizoral) Apply to scalp once weekly. Lather and leave on for 5 minutes before rinsing. Alternate with over the counter anti- dandruff shampoos on off days. 120 mL 5 ProRenal + D Oral [...] by mouth every 6 hours as needed. hydrALAZINE HCl 100 MG Oral Tablet TAKE 1 TABLET BY MOUTH EVERY DAY IN THE MORNING AND 1 TABLET AT NOON, AND 1 TABLET AT BEDTIME 270 Tablet 2 Carvedilol 12.5 MG Oral Tablet (Coreg) TAKE ONE TABLET BY MOUTH EVERY DAY IN THE MORNING AND TAKE ONE TABLET BY MOUTH EVERY DAY BEFORE BEDTIME 180 Tablet 4 Citalopram Hydrobromide 40 MG Oral Tablet (CeleXA) [...] A&B Vac Rcmb) Inject IM as directed 1 Each 0 Levothyroxine Sodium 100 MCG [...] Solostar 100 UNIT/ML Subcutaneous Solution Pen-injector (Lantus SoloStar) Inject 16 Units under the skin in the morning. 30 mL 3 NovoLOG FlexPen 100 UNIT/ML Subcutaneous Solution Pen-injector (insulin aspart) Inject 14 units with breakfast, 4 units with lunch, and 16 units with supper + CF 1:25 over 150. Follow chart provided by MT on 10/14/23 45 mL 3 Current Facility-Administered Medications Medication Dose Route Frequency Provider Last Rate Last Admin vitamin b-12 (Cyanocobalamin) inj 1,000 mcg 1,000 mcg Intramuscular Q12 Weeks Luis Fernando Rojas MD 1,000 mcg at 01/02/23 1242 vitamin b-12 (Cyanocobalamin) inj 1,000 mcg 1,000 mcg Intramuscular Q12 Weeks Cleo Fonseca PA-C Review of Systems: Review of Systems Constitutional: Positive for fatigue. Gastrointestinal: Positive for diarrhea and nausea. Negative for abdominal pain, constipation and vomiting. + occasional gas and diarrhea Psychiatric/Behavioral: Doing better this year. Last year had a fall and then hernia repair and was in rehab facility All other systems reviewed and are negative. Physical Exam: There were no vitals taken for this visit. Physical Exam Constitutional: Appearance: Normal appearance. She is obese. HENT: Head: Normocephalic and atraumatic. Eyes: Extraocular Movements: Extraocular movements intact. Pulmonary: Effort: Pulmonary effort is normal. Musculoskeletal: General: Normal range of motion. Neurological: General: No focal deficit present. Mental Status: She is alert. Hemoglobin A1C last 3 results: Lab Results Component Value Date/Time HEMATOCRIT POCT - [facility] 32 (L) 12/11/2022 12:43 PM HEMOGLOBIN A1C - [facility] 7.8 (H) 12/12/2022 07:18 AM HEMOGLOBIN A1C - [facility] 6.9 (H) 07/01/2022 09:10 AM HEMOGLOBIN A1C - [facility] 6.7 (H) 10/01/2021 09:06 AM HEMOGLOBIN A1C - [facility] 7.6 (H) 04/26/2020 09:24 AM HEMOGLOBIN A1C - [facility] 7.4 (H) 03/17/2020 09:21 AM HEMOGLOBIN A1C - [facility] 8.5 (H) 12/09/2019 08:56 AM HEMOGLOBIN I-STAT POCT - [facility] 10.9 (L) 12/11/2022 12:43 PM CBC Results: Results for orders placed or performed in visit on 07/01/22 CBC Result Value Ref Range WBC 9.26 4.00 - 10.80 K/uL RBC 2.89 3.85 - 5.15 M/uL HGB 9.2 (L) 12.0 - 15.3 g/dL HCT 30.6 (L) 36.0 - 45.2 % MCV 105.9 81.5 - 97.5 fL MCH 31.8 27.0 - 34.0 pg MCHC 30.1 32.0 - 36.0 g/dL RDW 13.3 11.5 - 15.5 % PLT 199 140 - 400 K/uL MPV 11.3 6.6 - 11.1 fL nRBCs 0 <=0 /100 WBCs Lab Results Component Value Date/Time ALBUMIN - [facility] 3.2 (L) 12/19/2022 07:56 AM ALBUMIN - [facility] 4.2 03/17/2020 09:21 AM Assessment/Plan: S/P Revision Surgery: Diet Will continue with current meal plan. Vitamins Multivitamin- Pro Renal + Vit D and generic childrens chewable two daily Calcium- calcium citrate 1 daily Vitamin D- 1000 IU [id number] away from that Other for hair-- biotin Liver Biopsy: Yes, NAFLD Fibrosis stage: 0 Hepatology Referral: Less than three, no referral PPI: Remains on treatment. Assessment/Plan: s/p Laparoscopic revision gastrojejunal anastomosis with reconstruction with vagotomy 2/2 marginal ulcer/bleeding on 01/28/22 H/o laparoscopic Gastric Bypass by Dr. Polanco on April 16, 2017. H/o hernia repair on 04/25/17. Diagnoses and all orders for this visit: Morbid obesity with BMI of 40.0-44.9, adult (HCC) - CBC; Future - PTH; Future - 25-HYDROXY VITAMIN D; Future - COPPER, SERUM OR PLASMA; Future - ZINC; Future - VITAMIN B12; Future - COMPREHENSIVE METABOLIC PANEL; Future - FOLIC ACID; Future - FERRITIN; Future - IRON SCREEN, INCLUDING TIBC; Future - VITAMIN A (RETINOL); Future - VITAMIN B1 (THIAMINE), BLOOD, LC/MS/MS; Future - HEMOGLOBIN A1C; Future - LIPID PANEL WITH DIRECT LDL IF TG IS HIGH; Future - METHYLMALONIC ACID, SERUM; Future - MAGNESIUM; Future - vitamin b-12 (Cyanocobalamin) inj 1,000 mcg Intestinal postoperative nonabsorption - CBC; Future - PTH; Future - 25-HYDROXY VITAMIN D; Future - COPPER, SERUM OR PLASMA; Future - ZINC; Future - VITAMIN B12; Future - COMPREHENSIVE METABOLIC PANEL; Future - FOLIC ACID; Future - FERRITIN; Future - IRON SCREEN, INCLUDING TIBC; Future - VITAMIN A (RETINOL); Future - VITAMIN B1 (THIAMINE), BLOOD, LC/MS/MS; Future - HEMOGLOBIN A1C; Future - LIPID PANEL WITH DIRECT LDL IF TG IS HIGH; Future - METHYLMALONIC ACID, SERUM; Future - MAGNESIUM; Future - vitamin b-12 (Cyanocobalamin) inj 1,000 mcg Continue stage 4 diet - reminded on eating behaviors, protein goals; she does have fluid restriction per nephrology PPI: pt remains on treatment daily MINISTERIO: - CPAP Diabetes mellitus type II (HgbA1c 6.7%) - pt has CGM Would recommend ozempic Will follow up with nephrology team and MTM before prescribing Peripheral neuropathy - cont home dose gabapentin 600 mg daily before bedtime Chronic diastolic heart failure SSS (sick sinus syndrome) s/p cardiac PM Hypertension: - carvedilol 12.5 mg BID, hydralazine, amlodipine, nitroglycerin 0.4 mg sublingual PRN - Aspirin 81 mg daily Constipation - Miralax prn Dyslipidemia: - Atorvastatin Depression/Anxiety/Mood disorder: - Continue citalopram Hypothyroidism: - Levothyroxine GERD: Hx of marginal gastric ulcer Continue PPI indefinitely ESRD on HD (M,W,F) - resume ProRenal + D oral tablet by mouth daily Vitamin D deficiency: - Resume vitamin D 1000 units daily with her ProRenal + D supplement The patient agreed to try the plan as discussed and return in 1-[address]; 3-5 months provider . They were encouraged to call or send a patient portal message in the meantime with any questions or concerns prior to their next visit. I spent a total of 40 minutes on the date of service in preparation, delivery, and documentation ofthe care provided to Candi Finley excluding any time spent in the performance of separately billed services. This included, but was not limited to, providing counseling about the benefits of weight loss, about their nutritional status, detailed explanations about calorie count, types of nutrients to choose,and composition of the meals. Motivational interview provided in order to prepare the patient to achieve future goals. Cleo Fonseca PA-C, [facility] ([facility]) documented in this encounter Plan of Treatment Upcoming Encounters Date Type Department Care Team (Late st Contact Info) Description 11/04/2023 10:00 AM EDT Office Visit [facility], [place] [address], [place] [id number] Luis Fernando Rojas MD [address], [place] [address] 11/11/2023 2:30 PM EDT Telemedicine Pharmacy, [place] [address], [place] [address] [facility] [address], [place] [address] 11/13/2023 9:40 AM EDT Office Visit Podiatry [facility] [address] [place] [address] Calli Avila DPM [address] [place] [address] 01/06/2024 3:00 PM EDT Office Visit [facility] [address] [place] [phone] Veena Rainey CRNP [address] [place] [address] Scheduled Orders Name Type Priority Associated Diagnoses Orde r Schedule CBC Lab Routine Morbid obesity with BMI of 40.0-44.9, adult (HCC) Intestinal postoperative nonabsorption Expected: 10/17/2023 (Approximate), Expires: 04/18/2024 PTH Lab Routine Morbid obesity with BMI of 40.0-44.9, adult (HCC) Intestinal postoperative nonabsorption Expected: 10/17/2023 (Approximate), Expires: 04/18/2024 25-HYDROXY VITAMIN D Lab Routine Morbid obesity with BMI of 40.0-44.9, adult (HCC) Intestinal postoperative nonabsorption Expected: 10/17/2023 (Approximate), Expires: 04/18/2024 COPPER, SERUM OR PLASMA Lab Routine Morbid obesity with BMI of 40.0-44.9, adult (HCC) Intestinal postoperative nonabsorption Expected: 10/17/2023 (Approximate), Expires: 04/18/2024 ZINC Lab Routine Morbid obesity with BMI of 40.0-44.9, adult (HCC) Intestinal postoperative nonabsorption Expected: 10/17/2023 (Approximate), Expires: 04/18/2024 VITAMIN B12 Lab Routine Morbid obesity with BMI of 40.0-44.9, adult (HCC) Intestinal postoperative nonabsorption Expected: 10/17/2023 (Approximate), Expires: 04/18/2024 COMPREHENSIVE METABOLIC PANEL Lab Routine Morbid obesity with BMI of 40.0-44.9, adult (HCC) Intestinal postoperative nonabsorption Expected: 10/17/2023 (Approximate), Expires: 04/18/2024 FOLIC ACID Lab Routine Morbid obesity with BMI of 40.0-44.9, adult (HCC) Intestinal postoperative nonabsorption Expected: 10/17/2023 (Approximate), Expires: 04/18/2024 FERRITIN Lab Routine Morbid obesity with BMI of 40.0-44.9, adult (HCC) Intestinal postoperative nonabsorption Expected: 10/17/2023 (Approximate), Expires: 04/18/2024 IRON SCREEN, INCLUDING TIBC Lab Routine Morbid obesity with BMI of 40.0-44.9, adult (HCC) Intestinal postoperative nonabsorption Expected: 10/17/2023 (Approximate), Expires: 04/18/2024 VITAMIN A (RETINOL) Lab Routine Morbid obesity with BMI of 40.0-44.9, adult (HCC) Intestinal postoperative nonabsorption Expected: 10/17/2023 (Approximate), Expires: 04/18/2024 VITAMIN B1 (THIAMINE), BLOOD, LC/MS/MS Lab Routine Morbid obesity with BMI of 40.0-44.9, adult (HCC) Intestinal postoperative nonabsorption Expected: 10/17/2023 (Approximate), Expires: 04/18/2024 HEMOGLOBIN A1C Lab Routine Morbid obesity with BMI of 40.0-44.9, adult (HCC) Intestinal postoperative nonabsorption Expected: 10/17/2023 (Approximate), Expires: 04/18/2024 LIPID PANEL WITH DIRECT LDL IF TG IS HIGH Lab Routine Morbid obesity with BMI of 40.0-44.9, adult (HCC) Intestinal postoperative nonabsorption Expected: 10/17/2023 (Approximate), Expires: 04/18/2024 METHYLMALONIC ACID, SERUM Lab Routine Morbid obesity with BMI of 40.0-44.9, adult (HCC) Intestinal postoperative nonabsorption Expected: 10/17/2023 (Approximate), Expires: 04/18/2024 MAGNESIUM Lab Routine Morbid obesity with BMI of 40.0-44.9, adult (HCC) Intestinal postoperative nonabsorption Expected: 10/17/2023 (Approximate), Expires: 04/18/2024 Scheduled Procedures Name Priority Associated Diagnoses Date/Ti [...] this encounter Medical Devices Implanted Type Area Cut Out Worker Device Identifier Shelf Expiration Date Model / Serial / Lot Coil Vortex 35 Pltinm [id number] - [id number] Implanted:Qty: 1 on 11/27/2021 by Sterling Cates MD at [place] [employer] [facility] [employer] Right: Upper Arm [employer] : NEURO INTR [id number] 08/15/2024 [id number] Coil Vortex 35 Pltinm [id number] - [id number] Implanted:Qty: 1 on 11/27/2021 by Sterling Cates MD at [place] [employer] Right: Upper Arm [employer] : NEURO INTR [id number] 08/15/2024 [id number] Coil Vortex 35 Pltinm [id number] - [id number] Implanted:Qty: 1 on 11/27/2021 by Sterling Cates MD at [place] [employer] [facility] [employer] Right: Upper Arm [employer] : NEURO INTR [id number] 08/15/2024 [id number] Coil Vortex 35 Pltinm [id number] - [id number] Implanted:Qty: 1 on 11/27/2021 by Sterling Cates MD at [place] [employer] [facility] [employer] Right: Upper Arm [employer] : NEURO INTR [id number] 05/16/2024 [id number] / / [id number] Azur 35 Detachable 5mm 11cm - [id number] Implanted:Qty: 1 on 03/19/2022 by Jose Devine MD at [place] [employer] [facility] [employer] Right: Wrist [employer] [id number] 10/18/2025 [id number] / / [id number] Azur 35 Detachable 5mm 11cm - [id number] Implanted:Qty: 1 on 03/19/2022 by Jose Devine MD at [place] [employer] [facility] Right: Wrist [employer] [id number] 06/19/2026 [id number] / / [id number] Mesh Flat Sheet 10x14 [id number] - [id number] Implanted:Qty: 1 on 12/11/2022 by Eros Dash MD at [place] [employer] [facility] [employer] N/A: Abdomen CR BARD : DAVOL [id number] 06/17/2027 [id number] / / [id number] documented as of this encounter Visit Diagnoses Diagnosis Morbid obesity with BMI of 40.0-44.9, adult (HCC)- Primary Morbid obesity Intestinal postoperative nonabsorption Other and unspecified postsurgical nonabsorption documented in this encounter Advance Directives Documents on File Type Date Recorded Patient Scientific Diver Expl anation POLST 11/13/2020 POLST PEN[place]YLVA VALERIA [...] the patient have Health Care Power of Monogram Operator? No Full Code 01/28/2022 11:14 AM 01/28/2022 4:47 PM Full Code 05/22/2021 12:38 PM 05/22/2021 5:48 PM This order reflects the patients wishes and were consensually agreed upon. Question Answer Comments Discussion of Advance Directives occurred with: Not Discussed Does the patient have a Living Will? No Does the patient have Health Care Power of Monogram Operator? No Healthcare Agents on File Name Relationship Healthcare Agent [facility] p Communication Zhen Finley Spouse Health Care Agent Care Teams Plater Production Relationship Specialty Start Date End Date Luis Fernando Rojas MD [address] [place] [address] PCP - General Family Medicine 09/23/16 documented as of this encounter
--- OUTSIDE RECORDS SUMMARY | 2024-01-09 10:12 | External Medical Summary | Summary of Care ---
Author Name Unknown Organization [facility] Address [address] [place] [address] Phone [phone] Care Team Providers Care Vegetable Tier Name Role Phone Luis Fernando Rojas MD Primary Care Provider [phone] Reason for Visit * Reason Onset Date Comments Referral 09/03/2023 Encounter Details Date Type Department Care Team (Late st Contact Info) Description 09/03/2023 Telephone Nutrition & Weight Management, [facility] Aj Townsend [address] [place] [address] [place] [address] Services, Scheduling [address] [place] [address] Referral Allergies Active Allergy Reactions Criticality Noted Date Comments Salvador Inhibitors Other (Please comment) High 0 HyperKalemia documented as of this encounter (statuses as of 09/03/2023) Medications Medication Sig Dispensed Refills Start Date [...] goal of less than 7.0% ([facility]) Inject 16 Units under the skin in [...] BEDTIME 180 Tablet 4 12/11/2022 4 Active Atorvastatin Calcium 40 MG Oral Tablet (Lipitor)Indicatio ns:Dyslipidemia, goal LDL below 100 TAKE ONE TABLET BY MOUTH EVERY EVENING 90 Tablet 3 08/16/2022 4 Active Levothyroxine Sodium 100 MCG Oral Tablet (Levoxyl)Indicatio ns:Hypothyroidism, unspecified type TAKE 1 TABLET BY MOUTH DAILY AT LEAST 30 MINUTES PRIOR TO FIRST MEAL OF THE DAY OR OTHER MEDICATIONS 90 Tablet 3 08/15/2022 4 Active Gabapentin 300 MG Oral Capsule (Neurontin) Take 1 Capsule by mouth at bedtime. Follow up with your primary care provider for further management. 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 Magallanes. Estela from 07-25. Has dialysis catheter in the [...] as of this encounter (statuses as of 09/03/2023) Resolved Problems Problem Noted Date Diagnosed Date [...] T-tube placement 04/16/2017 05/29/2017 [employer] Other*[id number] 04/13/2013 08/27/2016 Overview: Study Title: Genomic Markers for Patients with Cardiovascular Disease Project # [id number] Rotary Derrick Operator: Siena Laws MD [phone] Hypertensive heart disease 03/25/2013 1 07/29/2016 Neuropathy, [...] as of this encounter (statuses as of 09/03/2023) Immunizations Name Administration Dates Next Due COVID-19 [...] encounter Miscellaneous Notes * Telephone Encounter - Kerrie Morocho OSA - 09/03/2023 5:30 PM EST Pt has a referral for Clinical Nutrition for Weight management, but she is interested in talking tosomeone about taking a medication to help lose weight. Please place an order for this pt to be seenin Nutrition and Weight management. Thank you [facility] Scheduling Services documented in this encounter Plan of Treatment Upcoming Encounters Date Type Department Care Team (Late st Contact Info) Description 09/09/2023 10:00 AM EST Telemedicine Nutrition, [address] [place] [address] Megan Mak, JOSE [address] [place] [address] 09/16/2023 10:30 AM EST Telemedicine Pharmacy, [place] [address] [place] [address] [place], [facility] [address] [place] [address] 10/09/2023 9:00 AM EDT Laboratory Laboratory, [place] [address] [facility] [phone] [place], [facility] [address] [place] [facility] [place] [address] 10/16/2023 11:40 AM EDT Office Visit [facility], [place] [address] [facility] [phone] Luis Fernando Rojas MD [address] [place] [facility] [place] [facility] [place] [address] 11/13/2023 9:40 AM EDT Office Visit Podiatry [facility] [address] [facility] [place] [address] Calli Avila DPM [address] [facility] [place] [address] 12/02/2023 11:20 AM EDT Office Visit Sleep Disorders Ctr [facility] [address] [place] [phone] Kelsey Garcia DO [address] [place] [address] Scheduled Procedures Name Priority Associated Diagnoses Date/Ti me COLONOSCOPY FLEXIBLE PROXIMA L DIAGNOSTIC Recall History of colonic polyps Health Maintenance Due Date Last Done Comments Pneumococcal Vaccine: Pediatrics (0 to 5 Years) and At-Risk Patients (6 to 64 Years) (3 - PCV) 08/30/2015 08/30/2014, 09/18/2013, 07/28/2007 Diabetic [...] this encounter Medical Devices Implanted Type Area Area Representative Device Identifier Shelf Expiration Date Model / Serial / Lot Coil Vortex 35 Pltinm [id number] - [id number] Implanted:Qty: 1 on 11/27/2021 by Sterling Cates MD at [place] [facility] Right: Upper Arm [employer] : NEURO INTR [id number] 05/16/2024 [id number] Azur 35 Detachable 5mm 11cm - [id number] Implanted:Qty: 1 on 03/19/2022 by Jose Devine MD at [place] [facility] Right: Wrist [employer] [id number] 06/19/2026 [id number] / / [id number] Mesh Flat Sheet 10x14 [id number] - [id number] Implanted:Qty: 1 on 12/11/2022 by Eros Dash MD at [place] [facility] N/A: Abdomen CR BARD : DAVOL [id number] 06/17/2027 [id number] / / [id number] documented as of this encounter Advance Directives Documents on File Type Date Recorded Patient Commercial Sales Consultant Expl anation POLST 11/13/2020 POLST PENNSYLVA VALERIA [...] the patient have Health Care Power of Executive Team Leader? No Full Code 01/28/2022 11:14 AM 01/28/2022 4:47 PM Full Code 05/22/2021 12:38 PM 05/22/2021 5:48 PM This order reflects the patients wishes and were consensually agreed upon. Question Answer Comments Discussion of Advance Directives occurred with: Not Discussed Does the patient have a Living Will? No Does the patient have Health Care Power of Executive Team Leader? No Healthcare Agents on File Name Relationship Healthcare Agent Relationshi p Communication Zhen Finley Spouse Health Care Agent Care Teams Vegetable Tier Relationship Specialty Start Date End Date Luis Fernando Rojas MD [address] [place] [facility] [place] [facility] [place] [address] PCP - General Family Medicine 09/23/16 documented as of this encounter
--- OUTSIDE RECORDS SUMMARY | 2024-01-09 10:12 | External Medical Summary | Summary of Care ---
Author Name Unknown Organization [facility] Address [address] [place] [address] Phone [phone] Care Team Providers Care Horse Riding Coach Or Instructor Name Role Phone Luis Fernando Rojas MD Primary Care Provider [phone] Reason for Referral * Evaluate & Treat - Unlimited Visits (Within 30 days (routine)) - Authorized Specialty Diagnoses / Procedures Referred By Mikey torres Referred To Contact Dietitian / Nutrition Services Diagnoses Class 3 severe obesity due to excess calories with serious comorbidity and body mass index (BMI) of 40.0 to 44.9 in adult ([facility]) Luis Fernando Rojas MD [address] [place] [address] Referral ID Status Reason Start Date Expiration Date Visits Requested Visits Authorized [id number] Authorized Specialty Services Required 08/14/2023 999 999 Question Answer Referral Priority Within 30 days (routine) Where should this appointment be scheduled? Luis A What condition is the patient being seen for? CKD Comments Obesity Reason for Visit * Reason Onset Date Comments Med Request 08/14/2023 Encounter Details Date Type Department Care Team (Late st Contact Info) Description 08/14/2023 [place] Telephone Care Coordination and Integration [address] [place] [address] Adrianna Garg RN [address] [place] [address] Med Request Allergies Active Allergy Reactions Criticality Noted Date Comments Salvador Inhibitors Other (Please comment) High 0 HyperKalemia documented as of this encounter (statuses as of 09/05/2023) Medications Medication Sig Dispensed Refills Start Date End Date Status Melatonin 10 MG Tablet Take 12 mg by mouth at bedtime. 0 Active Aspirin 81 MG Oral Tablet ChewableIndication s:Type 2 diabetes mellitus 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 dialysis, with long-term current use of insulin ([facility]) Take 1 Tab by mouth at bedtime. with food. 90 Tab 3 02/16/2021 Active FreeStyle Jennifer 2 Sensor Use as directed. Replace every 14 days (supplied through 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 10/15/2022 [facility] OTHER*[id number] 01/01/2022 S/P gastric bypass 01/01/2022 Marginal ulcer [...] as of this encounter (statuses as of 09/05/2023) Resolved Problems Problem Noted Date Diagnosed Date [...] T-tube placement 04/16/2017 05/29/2017 [employer] Other*[id number] 04/13/2013 08/27/2016 Overview: Study Title: Genomic Markers for Patients with Cardiovascular Disease Project # [id number] Recycling Program Manager: Siena Laws MD [phone] Hypertensive heart disease 03/25/2013 1 07/29/2016 Neuropathy, [...] as of this encounter (statuses as of 09/05/2023) Immunizations Name Administration Dates Next Due COVID-19 [...] encounter Miscellaneous Notes * Telephone Encounter - Álvaro Toro, MINISTERIO - 09/05/2023 12:07 PM EST Orders were placed for pt to see clinical dietitian and GI nutrition. Pt has appt on 09/09 w/ clinical dietitian. Called and spoke w/ pt,she is requesting to see GI nutrition (interested in medication). 09/09 appt cx'd and HOP FARM WORKER video blanche'd 10/16 w/ Raymundo. * Telephone Encounter - Danyelle Conti OSA - 08/19/2023 1:16 PM EST Lmm MINISTERIO Drew 08/19/2023 1:16 PM * Telephone Encounter - Adrianna Garg RN - 08/15/2023 9:35 AM EST Will forward to GI nutrition scheduling to set up an appointment Adrianna Garg RN * Telephone Encounter - Luis Fernando Rojas MD - 08/14/2023 2:40 PM EST Notify Pt: I would suggest she start with talent development manager. Approved referral A GLP1 med would not be a contraindication but if we were going to try a GLP1 med, would need nephrology to approve and I would suggest we have her connect again with MTM to help with getting her started. * Telephone Encounter - Adrianna Garg RN - 08/14/2023 10:[address] Rojas, I spoke with Candi Finley, she wanted me to ask you if she can be ordered a medication to loose weight-she would also be willing to see a talent development manager/weight management if you would want to sign a referral. Thanks Adrianna Garg RN documented in this encounter Plan of Treatment Upcoming Encounters Date Type Department Care Team (Late st Contact Info) Description 09/16/2023 10:30 AM EST [address] [place] [address] [place], [facility] [address] [facility], [place] [address] 10/09/2023 9:00 AM EDT Laboratory Laboratory, [place] [address] [facility], [place] [phone] [place], Laboratory [address] [facility], [place] [address] 10/16/2023 11:40 AM EDT Office Visit Family Practice, [place] [address] [facility], [place] [phone] Luis Fernando Rojas MD [address] [facility], [place] [address] 10/17/2023 8:00 AM EDT Telemedicine Nutrition & Weight Management, [facility] [address] [place] [address] Cleo Fonseca PA-C [address] [place] [address] 11/13/2023 9:40 AM EDT Office Visit Podiatry [facility] [address] [place] [address] Calli Avila, DPRenae [address] [place] [address] 12/02/2023 11:20 AM EDT Office Visit Sleep Disorders Ctr [facility] [address] [place] [phone] Kelsey Garcia DO [address] [place] [address] Scheduled Procedures Name Priority Associated Diagnoses Date/Ti me COLONOSCOPY FLEXIBLE PROXIMA L DIAGNOSTIC Recall History of colonic polyps Scheduled Referrals Name Type Priority Associated Diagnoses Orde r Schedule NUTRITION-CLINICAL DIETITIAN REFERRAL OP Referral Within 30 days (routine) Class 3 severe obesity due to excess calories with serious comorbidity and body mass index (BMI) of 40.0 to 44.9 in adult (HCC) Ordered: 08/14/2023 Health Maintenance Due Date Last Done Comments [...] this encounter Medical Devices Implanted Type Area Astronomy Professor Device Identifier Shelf Expiration Date Model / Serial / Lot Coil Vortex 35 Pltinm [id number] - [id number] Implanted:Qty: 1 on 11/27/2021 by Sterling Cates MD at [place] [facility] Right: Upper Arm [employer] : NEURO INTR [id number] 08/15/2024 [id number] / / [id number] Coil Vortex 35 Pltinm [id number] - [id number] Implanted:Qty: 1 on 11/27/2021 by Sterling Cates MD at [place] [facility] Right: Upper Arm [employer] : NEURO INTR [id number] 08/15/2024 [id number] / [id number] Coil Vortex 35 Pltinm [id number] - [id number] Implanted:Qty: 1 on 11/27/2021 by Sterling Cates MD at [place] [facility] Right: Upper Arm [employer] : NEURO INTR [id number] 08/15/2024 [id number] / [id number] Coil Vortex 35 Pltinm [id number] - [id number] Implanted:Qty: 1 on 11/27/2021 by Sterling Cates MD at OR [facility] Right: Upper Arm [employer] : NEURO INTR [id number] 05/16/2024 [id number] / [id number] Azur 35 Detachable 5mm 11cm - [id number] Implanted:Qty: 1 on 03/19/2022 by Jose Devine MD at [place] [facility] Right: Wrist [employer] [id number] 10/18/2025 [id number] / / [id number] Azur 35 Detachable 5mm 11cm - [id number] Implanted:Qty: 1 on 03/19/2022 by Jose Devine MD at OR [facility] Right: Wrist [employer] [id number] 06/19/2026 [id number] / / [id number] Mesh Flat Sheet 10x14 [id number] - [id number] Implanted:Qty: 1 on 12/11/2022 by Eros Dash MD at OR [facility] N/A: Abdomen CR BARD : DAVOL [id number] 06/17/2027 [id number] / / [id number] documented as of this encounter Visit Diagnoses Diagnosis Class 3 severe obesity due to excess calories with serious comorbidity and body mass index (BMI) of 40.0 to 44.9 in adult (HCC)- Primary documented in this encounter Advance Directives Documents on File Type Date Recorded Patient Americanization Teacher Expl anation POLST 11/13/2020 POLST PENNSYLVA [...] the patient have Health Care Power of Air Conditioning Engineer? No Full Code 01/28/2022 11:14 AM 01/28/2022 4:47 PM Full Code 05/22/2021 12:38 PM 05/22/2021 5:48 PM This order reflects the patients wishes and were consensually agreed upon. Question Answer Comments Discussion of Advance Directives occurred with: Not Discussed Does the patient have a Living Will? No Does the patient have Health Care Power of Air Conditioning Engineer? No Healthcare Agents on File Name Relationship Healthcare Agent Leann interiano Communication Zhen Finley Spouse Health Care Agent Care Teams Horse Riding Coach Or Instructor Relationship Specialty Start Date End Date Luis Fernando Rojas MD [address] [place] [address] PCP - General Family Medicine 09/23/16 documented as of this encounter
--- OUTSIDE RECORDS SUMMARY | 2024-01-09 10:12 | External Medical Summary | Summary of Care ---
Author Name Unknown Organization [facility] Address [address] [place] [address] Phone [phone] Care Team Providers Care Therapy Tech Name Role Phone Heber Rojas MD Primary Care Provider [phone] Reason for Referral * Evaluate & Treat - Unlimited Visits (Within 30 days (routine)) - Authorized Specialty Diagnoses / Procedures Referred By Contact Referred To Contact GI NUTRITION/IM / Gastroenterology Diagnoses Morbid obesity with BMI of 40.0-44.9, adult (HCC) Heber Rojas MD [address] [place] [address] Referral ID Status Reason Start Date Expiration Date Visits Requested Visits Authorized [id number] Authorized Specialty Services Required 09/03/2023 999 999 Question Answer Referral Priority Within 30 days (routine) Where should this appointment be scheduled? ising For what condition is the patient being seen? Weight Loss Medication Reason for Visit * Reason Onset Date Comments Referral 09/03/2023 Encounter Details Date Type Department Care Team (Late st Contact Info) Description 09/03/2023 Telephone Nutrition & Weight Management, [facility] Aj Townsend [address] [place] [address] [place] [address] Services, Scheduling [address] [place] [address] Referral Allergies Active Allergy Reactions Criticality Noted [...] dialysis, with long-term current use of insulin ([facility]) Take 1 Tab by mouth at bedtime. with food. 90 Tab 3 02/16/2021 Active FreeStyle Jennifer 2 Sensor Use as directed. 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 10/15/2022 [facility] RESEARCH OTHER*[id number] 01/01/2022 S/P gastric bypass 01/01/2022 Marginal ulcer [...] 10/08/2022 Insulin long-term use 11/19/20182018 Overview: 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 (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 insulin 11/19/2018 10/08/2022 [...] T-tube placement 04/16/2017 05/29/2017 [employer] [facility] Other*[id number] 04/13/2013 08/27/2016 Overview: Study Title: Genomic Markers for Patients with Cardiovascular Disease Project # [id number] Cage Shift Manager: Siena Laws MD [phone] Hypertensive heart disease 03/25/2013 1 07/29/2016 Neuropathy, [...] Addendum Note - Heber Rojas MD - 09/03/2023 7:25 PM ESTAddended by: HEBER ROJAS on: 09/03/2023 07:25 PM Modules accepted: Orders * Telephone Encounter - Kerrie Morocho OSA [...] Description 09/09/2023 10:00 AM EST Telemedicine Nutrition, [place] [address] [facility] [place] [address] Megan Mak, JAYLONN [address] [place] [address] 09/16/2023 10:30 AM EST Telemedicine Pharmacy, [place] [address] [place] [address] [facility] [address] [place] [address] 10/09/2023 9:00 AM EDT Laboratory Laboratory, [place] [address] [place] [phone] [facility] Laboratory [address] [place] [address] 10/16/2023 11:40 AM EDT Office Visit [facility], [place] [address] [place] [phone] Heber Rojas MD [address] [place] [address] 11/13/2023 9:40 AM EDT Office Visit Podiatry [facility] [address] [place] [address] Calli Avila DPM [address] [place] [address] 12/02/2023 11:20 AM EDT Office Visit Sleep Disorders Ctr [facility] [address] [place] [address] Kelsey Garcia DO [address] [place] [address] Scheduled Procedures Name Priority Associated Diagnoses Date/Ti me COLONOSCOPY FLEXIBLE PROXIMA L DIAGNOSTIC Recall History of colonic polyps Scheduled Referrals Name Type Priority Associated Diagnoses Orde r Schedule GI NUTRITION REFERRAL OP Referral Within 30 days (routine) Morbid obesity with BMI of 40.0-44.9, adult (HCC) Ordered: 09/03/2023 Health Maintenance Due Date Last Done Comments [...] this encounter Medical Devices Implanted Type Area Retail Office Manager Device Identifier Shelf Expiration Date Model / Serial / Lot Coil Vortex 35 Pltinm [id number] - [id number] Implanted:Qty: 1 on 11/27/2021 by Sterling Cates MD at OR [facility] Right: Upper Arm [employer] : NEURO INTR [id number] 05/16/2024 [id number] Azur 35 Detachable 5mm 11cm - [id number] Implanted:Qty: 1 on 03/19/2022 by Jose Devine MD at OR [facility] Right: Wrist Radiation Monitoring Devices [employer] [id number] 06/19/2026 [id number] / / [id number] Mesh Flat Sheet 10x14 [id number] - [id number] Implanted:Qty: 1 on 12/11/2022 by Eros Dash MD at OR [facility] N/A: Abdomen CR BARD : DAVOL [id number] 06/17/2027 [id number] / / [id number] documented as of this encounter Visit Diagnoses Diagnosis Morbid obesity with BMI of 40.0-44.9, adult (HCC)- Primary Morbid obesity documented in this encounter Advance Directives Documents on File Type Date Recorded Patient Software Development Manager Expl anation POL 11/13/2020 POLST NASREEN [...] the patient have Health Care Power of Conveyor Console Operator? No Full Code 01/28/2022 11:14 AM 01/28/2022 4:47 PM Full Code 05/22/2021 12:38 PM 05/22/2021 5:48 PM This order reflects the patients wishes and were consensually agreed upon. Question Answer Comments Discussion of Advance Directives occurred with: Not Discussed Does the patient have a Living Will? No Does the patient have Health Care Power of Conveyor Console Operator? No Healthcare Agents on File Name Relationship Healthcare Agent [facility] Communication Zhen Finley Spouse Health Care Agent Care Teams Therapy Tech Relationship Specialty Start Date End Date Heber Rojas MD [address] [place] [address] PCP - General Family Medicine 09/23/16 documented as of this encounter
--- OUTSIDE RECORDS SUMMARY | 2024-01-09 10:12 | External Medical Summary | Summary of Care ---
Author Name Unknown Organization [facility] Address [address] [place] [address] Phone [phone] Care Team Providers Care Gold And Silver Assayer Name Role Phone Luis Fernando Rojas MD Primary Care Provider [phone] Reason for Visit * Reason Onset Date Comments Referral 09/03/2023 Encounter Details Date Type Department Care Team (Late st Contact Info) Description 09/03/2023 Telephone Nutrition & Weight Management, [facility] Aj Townsend [address] [place] [address] [place] [address] Services, Scheduling [address] [place] [address] Referral Allergies Active Allergy Reactions Criticality Noted [...] 7.0% ([facility]) Inject 16 Units under the skin [...] 1,000 mcgIndications:S/P gastric bypass 1000 mcg IM [id number] 10/15/2022 07/19/2025 Active documented as of this [...] 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 10/15/2022 MORFIN RESEARCH OTHER*[id number] 01/01/2022 S/P gastric bypass 01/01/2022 Marginal ulcer [...] Insulin long-term use 11/19/20182018 Overview: 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 11/19/2018 10/08/2022 [...] T-tube placement 04/16/2017 05/29/2017 [employer] Other*[id number] 04/13/2013 08/27/2016 Overview: Study Title: Genomic Markers for Patients with Cardiovascular Disease Project # [id number] Coil Repair Technician: Siena Laws MD [phone] Hypertensive heart disease 03/25/2013 1 07/29/2016 Neuropathy, [...] Description 09/09/2023 10:00 AM EST Telemedicine Nutrition, [address] [place] [address] Megan Mak, JOSE [address] [place] [address] 09/16/2023 10:30 AM EST Telemedicine Pharmacy, [place] [address] [place] [address] [place], [facility] [address] [place] [address] 10/09/2023 9:00 AM EDT Laboratory Laboratory, [place] [address] [facility] [phone] [place], [facility] [address] [facility] [place] [address] 10/16/2023 11:40 AM EDT Office Visit [facility], [place] [address] [facility] [phone] Luis Fernando Rojas MD [address] [facility] [place] [address] 11/13/2023 9:40 AM EDT Office Visit Podiatry [facility] [address] [facility] [place] [address] Calli Avila DPM [address] [facility] [place] [address] 12/02/2023 11:20 AM EDT Office Visit Sleep Disorders Ctr [facility] [address] [place] [phone] Kelsey Garcia DO [address] [place] [address] Scheduled Procedures Name Priority Associated Diagnoses Date/Ti [...] this encounter Medical Devices Implanted Type Area Straight Line Edger Device Identifier Shelf Expiration Date Model / Serial / Lot Coil Vortex 35 Pltinm [id number] - [id number] Implanted:Qty: 1 on 11/27/2021 by Sterling Cates MD at [place] [facility] Right: Upper Arm [employer] : NEURO INTR [id number] 05/16/2024 [id number] Azur 35 Detachable 5mm 11cm - [id number] Implanted:Qty: 1 on 03/19/2022 by Jose Devine MD at OR [facility] Right: Wrist [employer]Points [id number] 06/19/2026 [id number] / / [id number] Mesh Flat Sheet 10x14 [id number] - [id number] Implanted:Qty: 1 on 12/11/2022 by Eros Dash MD at OR [facility] N/A: Abdomen CR BARD : DAVOL [id number] 06/17/2027 [id number] / / [id number] documented as of this encounter Advance Directives Documents on File Type Date Recorded Patient Street Superintendent Expl anation POLST 11/13/2020 POLST [place] VALERIA [...] the patient have Health Care Power of Hairspring Cutter? No Full Code 01/28/2022 11:14 AM 01/28/2022 4:47 PM Full Code 05/22/2021 12:38 PM 05/22/2021 5:48 PM This order reflects the patients wishes and were consensually agreed upon. Question Answer Comments Discussion of Advance Directives occurred with: Not Discussed Does the patient have a Living Will? No Does the patient have Health Care Power of Hairspring Cutter? No Healthcare Agents on File Name Relationship Healthcare Agent Relationshi p Communication Zhen Finley Spouse Health Care Agent Care Teams Gold And Silver Assayer Relationship Specialty Start Date End Date Luis Fernando Rojas MD [address] [facility] [place] [address] PCP - General Family Medicine 09/23/16 documented as of this encounter
--- OUTSIDE RECORDS SUMMARY | 2024-01-09 10:12 | External Medical Summary | Summary of Care ---
Author Name Unknown Organization [facility] Address [address] [place] [address] Phone [phone] Care Team Providers Care Radiology Aide Name Role Phone Luis Fernando Rojas MD Primary Care Provider [phone] Encounter Details Date Type Department Care Team (Late st Contact Info) Description 08/26/2023 Result Scan Unspecified Department Ulises Stevenson, DO [address] [place] [address] <No scans attached> Allergies Active Allergy Reactions Criticality Noted Date Comments Salvador Inhibitors Other (Please comment) High 0 HyperKalemia documented as of this encounter (statuses as of 08/26/2023) Medications Medication Sig Dispensed Refills Start Date [...] directed. 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 10/15/2022 MORFIN RESEARCH OTHER*[id number] 01/01/2022 S/P gastric bypass 01/01/2022 Marginal ulcer [...] as of this encounter (statuses as of 08/26/2023) Resolved Problems Problem Noted Date Diagnosed Date [...] 10/08/2022 Insulin long-term use 11/19/20182018 Overview: 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 11/19/2018 10/08/2022 Morbid [...] T-tube placement 04/16/2017 05/29/2017 [employer] Other*[id number] 04/13/2013 08/27/2016 Overview: Study Title: Genomic Markers for Patients with Cardiovascular Disease Project # [id number] Train Conductor: Siena Laws MD [phone] Hypertensive heart disease 03/25/2013 1 07/29/2016 Neuropathy, [...] as of this encounter (statuses as of 08/26/2023) Immunizations Name Administration Dates Next Due COVID-19 [...] Care Team (Late st Contact Info) Description 08/27/2023 6:10 PM [facility] Pharmacy Pharmacy, [place] [address] [place] [address] [facility] [address] [place] [address] 09/09/2023 10:00 AM EST Telemedicine Nutrition, [place] [address] [facility] [place] [address] Megan Mak, RDN [address] [place] [address] 10/09/2023 9:00 AM EDT Laboratory Laboratory, [place] [address] [place] [facility] [place] [phone] [place], Laboratory [address] [place] [address] 10/16/2023 11:40 AM EDT Office Visit Family [facility], [place] [address] [place] [facility] [place] [phone] Luis Fernando Rojas MD [address] [place] [facility] [place] [address] 11/13/2023 9:40 AM EDT Office Visit Podiatry [facility] [address] [place] [address] Calli Avila, DPM [address] [place] [address] 12/02/2023 11:20 AM EDT Office Visit Sleep Disorders Ctr [facility] [address] [place] [phone] Kelsey Garcia, [address] [place] [address] Scheduled Procedures Name Priority Associated Diagnoses Date/Ti [...] this encounter Medical Devices Implanted Type Area Criminal Defense Attorney Device Identifier Shelf Expiration Date Model / Serial / Lot Coil Vortex 35 Pltinm [id number] - [id number] Implanted:Qty: 1 on 11/27/2021 by Sterling Cates MD [place] [facility] [place]: Upper Arm [employer] : NEURO INTR [id number] 05/16/2024 [id number] Azur 35 Detachable 5mm 11cm - [id number] Implanted:Qty: 1 on 03/19/2022 by Jose Devine MD [place] [facility] Right: Wrist Blue [employer] MED[employer]AT [id number] 06/19/2026 [id number] / / [id number] Mesh Flat Sheet 10x14 [id number] - [id number] Implanted:Qty: 1 on 12/11/2022 by Eros Dash MD at [place] [facility] N/A: Abdomen CR BARD : DAVOL [id number] 06/17/2027 [id number] / / [id number] documented as of this encounter Procedures Procedure Name Priority Date/Time Associated Diagnosis Comments CARDIOLOGY SCANNED RESULT 08/26/2023 documented in this encounter Results * CARDIOLOGY SCANNED RESULT (08/26/2023) 08/26/2023 Ulises Stevenson DO OTHER documented in this encounter Advance Directives Documents on File Type Date Recorded Patient Polisher Dial Saranya FIGUEROA 11/13/2020 [facility] ORDERS FOR [...] the patient have Health Care Power of Hydrator Operator? No Full Code 01/28/2022 11:14 AM 01/28/2022 4:47 PM Full Code 05/22/2021 12:38 PM 05/22/2021 5:48 PM This order reflects the patients wishes and were consensually agreed upon. Question Answer Comments Discussion of Advance Directives occurred with: Not Discussed Does the patient have a Living Will? No Does the patient have Health Care Power of Hydrator Operator? No Healthcare Agents on File Name Relationship Healthcare Agent [facility] p Communication Zhen Finley Spouse Health Care Agent Care Teams Radiology Aide Relationship Specialty Start Date End Date Luis Fernando Rojas MD [address] [place] [address] PCP - General Family Medicine 09/23/16 documented as of this encounter
--- OUTSIDE RECORDS SUMMARY | 2024-01-09 10:12 | External Medical Summary | Summary of Care ---
Author Name Unknown Organization [facility] Address [address] [place] [address] Phone [phone] Care Team Providers Care Credit Counselor Name Role Phone Heber Rojas MD Primary Care Provider [phone] Reason for Referral * Evaluate & Treat - Unlimited Visits (Within 30 days (routine)) - Authorized Specialty Diagnoses / Procedures Referred By Contact Referred To Contact GI NUTRITION/IM / Gastroenterology Diagnoses Morbid obesity with BMI of 40.0-44.9, adult (HCC) Heber Rojas MD [address] [place] [address] Referral ID Status Reason Start Date Expiration Date Visits Requested Visits Authorized [id number] Authorized Specialty Services Required 09/03/2023 999 999 Question Answer Referral Priority Within 30 days (routine) Where should this appointment be scheduled? ising For what condition is the patient being seen? Weight Loss Medication Reason for Visit * Reason Onset Date Comments Referral 09/03/2023 Encounter Details Date Type Department Care Team (Late st Contact Info) Description 09/03/2023 Telephone Nutrition & Weight Management, [facility] Aj Townsend [address] [place] [address] [place] [address] Services, Scheduling [address] [place] [address] Referral Allergies Active Allergy Reactions Criticality Noted Date Comments Salvador Inhibitors Other (Please comment) High 0 HyperKalemia documented as of this encounter (statuses as of 09/04/2023) Medications Medication Sig Dispensed Refills Start Date End Date Status Melatonin 10 MG Tablet Take 12 mg by mouth at bedtime. 0 Active Aspirin 81 MG Oral Tablet ChewableIndication s:Type 2 diabetes mellitus 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 dialysis, with long-term current use of insulin ([facility]) Take 1 Tab by mouth at bedtime. with food. 90 Tab 3 02/16/2021 Active FreeStyle Jennifer 2 Sensor Use as directed. Replace every 14 days (supplied through [facility]) 7 Each 3 05/17/2021 Active [...] (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 10/15/2022 MORFIN RESEARCH OTHER*[id number] 01/01/2022 S/P gastric bypass 01/01/2022 Marginal ulcer [...] as of this encounter (statuses as of 09/04/2023) Resolved Problems Problem Noted Date Diagnosed Date [...] T-tube placement 04/16/2017 05/29/2017 [employer] Other*[id number] 04/13/2013 08/27/2016 Overview: Study Title: Genomic Markers for Patients with Cardiovascular Disease Project # [id number] Weight And Balance Control Agent: Siena Laws MD [phone] Hypertensive heart disease 03/25/2013 1 07/29/2016 Neuropathy, [...] as of this encounter (statuses as of 09/04/2023) Immunizations Name Administration Dates Next Due COVID-19 [...] Telephone Encounter - Janice Orr LPN - 09/04/2023 11:41 AM EST Spoke with pt. She has an appointment with nutrition next week. Pt was wondering if you are going to prescribe a weight loss drug to her now? Please advise, thank you * Addendum Note - Heber Rojas MD [...] Description 09/09/2023 10:00 AM EST Telemedicine Nutrition, [place] [address] [facility] [place] [address] Megan Mak, JAYLONN [address] [place] [address] 09/16/2023 10:30 AM EST Telemedicine Pharmacy, [place] [address] [place] [address] [facility] [address] [place] [address] 10/09/2023 9:00 AM EDT Laboratory Laboratory, [place] [address] [place] [phone] [facility] [address] [place] [address] 10/16/2023 11:40 AM EDT Office Visit Family [facility], [place] [address] [place] [phone] Heber Rojas MD [address] [place] [address] 11/13/2023 9:40 AM EDT Office Visit Podiatry [facility] [address] [place] [address] Calli Avila, DPM [address] [place] [address] 12/02/2023 11:20 AM EDT Office Visit Sleep Disorders Ctr [facility] [address] [place] [phone] Kelsey Garcia, [address] [place] [address] Scheduled Procedures Name Priority Associated Diagnoses Date/Ti [...] this encounter Medical Devices Implanted Type Area Loss Prevention And Safety Manager Device Identifier Shelf Expiration Date Model / Serial / Lot Coil Vortex 35 Pltinm [id number] - [id number] Implanted:Qty: 1 on 11/27/2021 by Sterling Cates MD at OR [facility] Right: Upper Arm [employer] : NEURO INTR [id number] 05/16/2024 [id number] Azur 35 Detachable 5mm 11cm - [id number] Implanted:Qty: 1 on 03/19/2022 by Jose Devine MD at OR [facility] Right: Wrist [employer] MEDHAT [id number] 06/19/2026 [id number] / / [id number] Mesh Flat Sheet 10x14 [id number] - [id number] Implanted:Qty: 1 on 12/11/2022 by Eros Dash MD at OR [facility] N/A: Abdomen CR BARD : DAVOL [id number] 06/17/2027 [id number] / / [id number] documented as of this encounter Visit Diagnoses Diagnosis Morbid obesity with BMI of 40.0-44.9, adult (HCC)- Primary Morbid obesity documented in this encounter Advance Directives Documents on File Type Date Recorded Patient Compliance Attorney Saranya kirk POL 11/13/2020 POLST [facility]AW [...] the patient have Health Care Power of Advanced Practice Nurse Psychotherapist? No Full Code 01/28/2022 11:14 AM 01/28/2022 4:47 PM Full Code 05/22/2021 12:38 PM 05/22/2021 5:48 PM This order reflects the patients wishes and were consensually agreed upon. Question Answer Comments Discussion of Advance Directives occurred with: Not Discussed Does the patient have a Living Will? No Does the patient have Health Care Power of Advanced Practice Nurse Psychotherapist? No Healthcare Agents on File Name Relationship Healthcare Agent [facility] p Communication Zhen Finley Spouse Health Care Agent Care Teams Credit Counselor Relationship Specialty Start Date End Date Heber Rojas MD [address] [place] [address] PCP - General Family Medicine 09/23/16 documented as of this encounter
--- OUTSIDE RECORDS SUMMARY | 2024-01-09 10:12 | External Medical Summary | Summary of Care ---
Author Name Unknown Organization [facility] Address [address] [place] [address] Phone [phone] Care Team Providers Care Skiver Hand Name Role Phone Luis Fernando Rojas MD Primary Care Provider Reason for Visit * Reason Comments Appointment Encounter Details Date Type Department Care Team (Late st Contact Info) Description 08/27/2023 6:10 PM [facility] Pharmacy Pharmacy, [place] [address] [place] [address] [facility] [address] [place] [address] Type 2 diabetes mellitus with hemoglobin A1c goal of less than 7.0% ([facility])* Allergies Active Allergy Reactions Criticality Noted Date Comments Salvador Inhibitors Other (Please comment) High 0 HyperKalemia documented as of this encounter (statuses as of 08/27/2023) Medications Medication Sig Dispensed Refills Start Date End Date Status Melatonin 10 MG Tablet Take 12 mg by mouth at bedtime. 0 Active Aspirin 81 MG Oral Tablet ChewableIndication s:Type 2 diabetes mellitus 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 dialysis, with long-term current use of insulin ([facility]) Take 1 Tab by mouth at bedtime. with food. 90 Tab 3 02/16/2021 Active FreeStyle Jennifer 2 Sensor Use as directed. 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 10/15/2022 MORFIN RESEARCH OTHER*[id number] 01/01/2022 S/P gastric bypass 01/01/2022 Marginal ulcer [...] as of this encounter (statuses as of 08/27/2023) Resolved Problems Problem Noted Date Diagnosed Date [...] 10/08/2022 Insulin long-term use 11/19/20182018 Overview: 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 11/19/2018 10/08/2022 [...] T-tube placement 04/16/2017 05/29/2017 [employer] Other*[id number] 04/13/2013 08/27/2016 Overview: Study Title: Genomic Markers for Patients with Cardiovascular Disease Project # [id number] Pop Singer: Siena Laws MD [phone] Hypertensive heart disease 03/25/2013 1 07/29/2016 Neuropathy, [...] as of this encounter (statuses as of 08/27/2023) Immunizations Name Administration Dates Next Due COVID-19 [...] as of this encounter Progress Notes * Estrella Akbar PHARM Tech - 08/27/2023 8:20 AM EST Patient Phone Numbers Spoke with patient to schedule [facility] appointment for diabetes management. Appointment scheduled as noted below. 09/16/2023 Thank you, Estrella Akbar Weatherstrip Machine Operator [facility] 08/27/2023,8:20 AM documented in this encounter Plan of Treatment Upcoming Encounters Date Type Department Care Team (Late st Contact Info) Description 09/09/2023 10:00 AM EST Telemedicine Nutrition, [place] [address] [place] [address] Megan Mak, JOSE [address] [place] [address] 09/16/2023 10:30 AM EST Telemedicine Pharmacy, [place] [address] [place] [address] [facility] [address] [place] [address] 10/09/2023 9:00 AM EDT Laboratory Laboratory, [place] [address] [facility] [place] [phone] [facility] [address] [place] [address] 10/16/2023 11:40 AM EDT Office Visit Family Psychiatric, [place] [address] [facility] [place] [phone] Luis Fernando Rojas MD [address] [place] [address] 11/13/2023 9:40 AM EDT Office Visit Podiatry [facility] [address] [facility] [place] [address] Calli Avila DPM [address] [facility] [place] [address] 12/02/2023 11:20 AM EDT Office Visit Sleep Disorders Ctr [facility] [address] [address] Kelsey Garcia DO [address] [place] [address] Scheduled Procedures Name Priority Associated Diagnoses Date/Ti [...] this encounter Medical Devices Implanted Type Area Event Host Device Identifier Shelf Expiration Date Model / Serial / Lot Coil Vortex 35 Pltinm [id number] - [id number] Implanted:Qty: 1 on 11/27/2021 by Sterling Cates MD [place] [facility] Right: Upper Arm [employer] : NEURO INTR [id number] 05/16/2024 [id number] Azur 35 Detachable 5mm 11cm - [id number] Implanted:Qty: 1 on 03/19/2022 by Jose Devine MD [place] [facility] Right: Wrist [employer] MED[employer] [id number] 06/19/2026 [id number] / / [id number] Mesh Flat Sheet 10x14 [id number] - [id number] Implanted:Qty: 1 on 12/11/2022 by Eros Dash MD at [place] [facility] N/A: Abdomen CR BARD : DAVOL [id number] 06/17/2027 [id number] / / [id number] documented as of this encounter Visit Diagnoses Diagnosis Type 2 diabetes mellitus with hemoglobin A1c goal of less than 7.0% (HCC)- Primary documented in this encounter Advance Directives Documents on File Type Date Recorded Patient Silk Examiner Expl anation POLST 11/13/2020 POLST PENNSYLVA VALERIA [...] the patient have Health Care Power of Civil Technician? No Full Code 01/28/2022 11:14 AM 01/28/2022 4:47 PM Full Code 05/22/2021 12:38 PM 05/22/2021 5:48 PM This order reflects the patients wishes and were consensually agreed upon. Question Answer Comments Discussion of Advance Directives occurred with: Not Discussed Does the patient have a Living Will? No Does the patient have Health Care Power of Civil Technician? No Healthcare Agents on File Name Relationship [facility] Zhen Finley Spouse Health Care Agent Care Teams Skiver Hand Relationship Specialty Start Date End Date Luis Fernando Rojas MD [address] [place] [address] PCP - General Family Medicine 09/23/16 documented as of this encounter
--- OUTSIDE RECORDS SUMMARY | 2024-01-09 10:12 | External Medical Summary | Summary of Care ---
Author Name Unknown Organization [facility] Address [address] [place] [address] Phone [phone] Care Team Providers Care Wellness Program Coordinator Name Role Phone Luis Fernando Rojas MD Primary Care Provider [phone] Encounter Details Date Type Department Care Team (Late st Contact Info) Description 08/22/2023 Orders Only PATIENT PORTAL DO NOT DELETE THIS DEPT USED BY RODR[place] SIFUENTES [id number] Allergies Active Allergy Reactions Criticality Noted Date Comments Salvador Inhibitors Other (Please comment) High 0 HyperKalemia documented as of this encounter (statuses as of 08/22/2023) Medications Medication Sig Dispensed Refills Start Date [...] A1c goal of less than 7.0% ([facility]) Inject 16 Units under the skin [...] Active Levothyroxine Sodium 100 MCG Oral Tablet (Levoxyl)Caitietio ns:Hypothyroidism, unspecified type TAKE 1 TABLET BY [...] 1,000 mcgIndications:S/P gastric bypass 1000 mcg IM [id number] 10/15/2022 07/19/2025 Active documented as of this encounter (statuses as of 08/22/2023) Active Problems Problem Noted Date Diagnosed Date [...] 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 10/15/2022 [facility] [place] [facility] OTHER*[id number] 01/01/2022 S/P gastric bypass 01/01/2022 Marginal ulcer [...] as of this encounter (statuses as of 08/22/2023) Resolved Problems Problem Noted Date Diagnosed Date [...] T-tube placement 04/16/2017 05/29/2017 [facility] [facility] [employer] Other*[id number] 04/13/2013 08/27/2016 Overview: Study Title: Genomic Markers for Patients with Cardiovascular Disease Project # [id number] Day Care Director: Siena Laws MD [phone] Hypertensive heart disease 03/25/2013 1 07/29/2016 Neuropathy, [...] as of this encounter (statuses as of 08/22/2023) Immunizations Name Administration Dates Next Due COVID-19 [...] st Contact Info) Description 08/27/2023 6:10 PM EST Pharmacy Pharmacy, [place] [address] [place] [address] [facility] [address] [place] [address] 09/09/2023 10:00 AM EST Telemedicine Nutrition, [place] [address] [place] [address] Megan Mak, JOSE [address] [place] [address] 10/09/2023 9:00 AM EDT Laboratory Laboratory, [address] [phone] [facility] [address] [place] [address] 10/16/2023 11:40 AM EDT Office Visit Family [facility], [address] [phone] Luis Fernando Rojas MD [address] [place] [address] 11/13/2023 9:40 AM EDT Office Visit Podiatry [facility] [address] [place] [address] Calli Avila, DPM [address] [place] [address] 12/02/2023 11:20 AM EDT Office Visit [facility] Disorders [facility]tr [facility] [address] [place] [phone] Kelsey Garcia, [address] [place] [address] Scheduled Procedures Name Priority Associated Diagnoses Date/Ti [...] this encounter Medical Devices Implanted Type Area Night Clerk Device Identifier Shelf Expiration Date Model / Serial / Lot Coil Vortex 35 Pltinm [id number] - [id number] Implanted:Qty: 1 on 11/27/2021 [place] [facility] [place]: Upper Arm [employer] : NEURO INTR [id number] 05/16/2024 [id number] / / [id number] Azur 35 Detachable 5mm 11cm - [id number] Implanted:Qty: 1 on 03/19/2022 by Jose Devine [place] [facility] [place] Right: Wrist [employer] [id number] 06/19/2026 [id number] / / [id number] Mesh Flat Sheet 10x14 [id number] - [id number] Implanted:Qty: 1 on 12/11/2022 by Eros Dash [place] [facility] [place]/A: Abdomen CR BARD : DAVOL [id number] 06/17/2027 [id number] / / [id number] documented as of this encounter Advance Directives Documents on File Type Date Recorded Patient Grinder Operator Automatic Expl anation POLST 11/13/2020 POLST PENNSYLVA VALERIA [...] the patient have Health Care Power of Type Photography Supervisor? No Full Code 01/28/2022 11:14 AM 01/28/2022 4:47 PM Full Code 05/22/2021 12:38 PM 05/22/2021 5:48 PM This order reflects the patients wishes and were consensually agreed upon. Question Answer Comments Discussion of Advance Directives occurred with: Not Discussed Does the patient have a Living Will? No Does the patient have Health Care Power of Type Photography Supervisor? No Healthcare Agents on File Name Relationship Healthcare Agent [facility] Communication Zhen Finley Spouse Health Care Agent Care Teams Wellness Program Coordinator Relationship Specialty Start Date End Date Luis Fernando Rojas MD [address] [place] [address] PCP - General Family Medicine 09/23/16 documented as of this encounter
--- OUTSIDE RECORDS SUMMARY | 2024-01-09 10:13 | External Medical Summary | Summary of Care ---
Author Name Unknown Organization [facility] Address [address] [place] [address] Phone [phone] Care Team Providers Care Hall Porter Name Role Phone Luis Fernando Rojas MD Primary Care Provider [phone] Reason for Visit * Reason Comments Diabetic Foot Care Encounter Details Date Type Department Care Team (Late st Contact Info) Description 08/12/2023 10:20 AM EST Office Visit Podiatry [facility] [address] [place] [address] Calli Avila DPM [address] [place] [address] Onychomycosis*; Type 2 diabetes mellitus 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 dialysis, with long-term current use of insulin ([facility]); Hammer toe of right foot; ESRD (end stage renal disease) on dialysis ([facility]); Callus Allergies Active Allergy Reactions Criticality Noted Date Comments Salvador Inhibitors Other (Please comment) High 0 HyperKalemia documented as of this encounter (statuses as of 08/12/2023) Medications Medication Sig Dispensed Refills Start Date [...] directed. Replace every 14 days [place] [facility] [place] 7 Each 3 05/17/2021 [...] hemoglobin A1c goal of less than 7.0% ([facility]) Inject 16 Units under the skin in [...] 1,000 mcgIndications:S/P gastric bypass 1000 mcg IM [id number] 10/15/2022 07/19/2025 Active documented as of this encounter (statuses as of 08/12/2023) Active Problems Problem Noted Date Diagnosed Date [...] 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 10/15/2022 [facility] OTHER*[id number] 01/01/2022 S/P gastric bypass 01/01/2022 Marginal ulcer [...] as of this encounter (statuses as of 08/12/2023) Resolved Problems Problem Noted Date Diagnosed Date [...] T-tube placement 04/16/2017 05/29/2017 [employer] [facility] Other*[id number] 04/13/2013 08/27/2016 Overview: Study Title: Genomic Markers for Patients with Cardiovascular Disease Project # [id number] Fire Boss: Siena Laws MD [phone] Hypertensive heart disease 03/25/2013 1 07/29/2016 Neuropathy, [...] as of this encounter (statuses as of 08/12/2023) Immunizations Name Administration Dates Next Due COVID-19 [...] Date Recorded PHQ Adult Total Score 0 10/10/2020 Hunger Vital Sign Answer Date Recorded Worried About Running Out of Food in the Last Ye ar Not on file 01/02/2023 Within the past 12 months, t he food you bought just didn't last and you didn't have money to get more. Never true 01/02/2023 Sex and Gender Information Value Date Recorded [...] this encounter Progress Notes * Calli Avila, DPM - 08/12/2023 10:25 AM EST Podiatry Established Patient Note [facility] Name: Candi Finley : 1960 Date: 08/12/2023 CHIEF COMPLAINT: Diabetic Nail Care HISTORY OF PRESENT ILLNESS: This patient is a 62 year old female who presents today for diabetic nail care. She has been doing well and states her nails are extremely long. She is currently taking Gabapentin for her neuropathy. Pt denies any other complaints at todays visit. She denies any recent changes in her medical history. Past Medical History: Diagnosis Date Body mass index 40 and over, adult CHF NYHA class I (HCC) 07/2009 Chronic marginal ulcer Deficiency of other vitamins Vit D Depressive disorder, not elsewhere classified Dialysis patient (HCC) Diverticulosis of colon (without mention of hemorrhage) 12/02/2013 sigmoid & descending colon 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 DM type 2 causing renal disease (HCC) DM type 2, goal A1c below [address] Monte Dyslipidemia, goal LDL below 100 primarily high triglycerides Endometrial cancer (HCC) 1993 ESRD (end stage renal disease) on dialysis ([facility]) 03/14/2021 HTN, goal below 130/80 Kidney disease, chronic, stage III (GFR 30-59 ml/min) ([facility]) 10/02/2011 More specified code listed on PL Historical Malignant melanoma of right upper extremity (HCC) 05/07/2021 Malignant neoplasm of corpus uteri ([facility]) 1993 Melanoma ([facility]) L calf R arm Motion sickness Neuropathy, diabetic ([facility]) 02/18/2013 Osteoarthritis of hip mild to mod bilat hip pain Other specified anemias low iron Other specified glaucoma denied by patient PONV (postoperative nausea and vomiting) Renal failure hemodialysis SBO (small bowel obstruction) ([facility]) 04/25/2017 Sleep apnea 07/2009 CPAP 11 cm H2O. C-flex 2 Past Surgical History: Procedure Laterality Date ABD WALL HERNIA REPAIR, LAP, REDUCIBLE N/A 01/28/2022 LAPAROSCOPIC VENTRAL/UMBILICAL HERNIA REPAIR, REDUCIBLE W OR W/O MESH performed by Honorio Ashford MD at [place] [facility] [place] AV ACCESS, DIRECT ANASTOMOSIS Right 08/16/2021 ARTERIOVENOUS ANASTOMOSIS OPEN DIRECT ANY SITE performed by Sterling Cates MD at [facility] BREAST BIOPSY Left 12/26/2008 Usual Ductal Hyperplasia BREAST BIOPSY Left 09/20/2010 Benign BX LYMPH NODE DEEP AXIL Right 05/22/2021 BIOPSY LYMPH NODE DEEP AXILLARY OPEN performed by Diamond Rivero MD at OR [facility] COLONOSCOPY, DIAGNOSTIC (RECTUM) 12/02/2013 hyperplastic polyps, diverticulosis, repeat 5 yrs/done @ [facility] COLONOSCOPY, DIAGNOSTIC (RECTUM) 12/11/2017 adenomatous polyps, diverticulosis, repeat 5 yrs/[facility] COLONOSCOPY, DIAGNOSTIC (RECTUM) N/A 02/27/2023 diverticulosis/hemorrhoids/biopsies show adenomatous polyps/recall 5 years/Colonoscopy/[place] CORONARY ANGIOGRAPHY W/LEFT HEART CATH 04/13/2013 CORONARY ANGIOGRAPHY W/LEFT HEART CATH performed by Ulises Reed MD at [facility] LAB[facility] DIALYIS CIRCUIT VASCULAR EMBOLIZATION OCCLUSION ENDOVASC IMAGING Right 11/27/2021 EMBOLIZATION DIALYSIS CIRCUIT performed by Sterling Cates MD at [place] [facility] [facility] EGD, FLEXIBLE, DIAGNOSTIC 05/03/2014 mild-mod inflammation/done @ [facility] EGD, FLEXIBLE, DIAGNOSTIC N/A 04/16/2017 ESOPHAGOGASTRODUODENOSCOPY (EGD), FLEXIBLE, TRANSORAL, DIAGNOSTIC performed by Félix Gilliam [place] [facility] EGD, FLEXIBLE, DIAGNOSTIC 05/05/2020 mild-mod inflammation on bx / ESOPHAGOGASTRODUODENOSCOPY (EGD), FLEXIBLE, TRANSORAL, DIAGNOSTIC performed by Adin Borja MD at ENDOSCOPY [facility] EGD, FLEXIBLE, DIAGNOSTIC N/A 04/25/2021 ESOPHAGOGASTRODUODENOSCOPY (EGD), FLEXIBLE, TRANSORAL, DIAGNOSTIC performed by Honorio Almendarez MD at[facility]OSCOPY [facility] EGD, FLEXIBLE, DIAGNOSTIC 06/13/2021 gastrojejunal anastomosis characterized by ulceration, repeat 2 mo / [facility] IDENTIFY SENTINEL NODE, RADIOACTIVE TRACER Right 05/22/2021 INJECTION PROCEDURE FOR IDENTIFICATION SENTINEL NODE performed by Diamond Rivero MD at OR [facility] INFORMATION Left 2019 Pacemaker placement. INTRO CATH DIALYSIS CIRCUIT DX ANGIOGRAPHY FLUORO S&I Right 10/10/2022 AV FISTULOGRAM DIAGNOSTIC performed by Jose Devine MD at OR [facility] INTRO CATH DIALYSIS CIRCUIT W/TRANSCATH PLACEMENT IV STENT Right 03/19/2022 AV FISTULOGRAM STENT & PERIPHERAL ANGIOPLASTY performed by Jose Devine MD at [place] [facility] [place] [facility] INTRO CATH DIALYSIS CIRCUIT W/TRANSCATH PLACEMENT IV STENT Right 05/13/2023 AV FISTULOGRAM STENT & PERIPHERAL ANGIOPLASTY performed by Williams Matt MD at [place] [facility] INTRO CATH DIALYSIS CIRCUIT W/TRANSLUM BALLOON ANGIOPLASTY Right 11/27/2021 AV FISTULOGRAM & PERIPHERAL ANGIOPLASTY performed by Sterling Cates MD at [place] [facility] [place] [facility] INTRO CATH DIALYSIS CIRCUIT W/TRANSLUM BALLOON ANGIOPLASTY Right 05/30/2022 AV FISTULOGRAM & PERIPHERAL ANGIOPLASTY performed by Beto Torrez MD at OR [facility] INTRO CATH DIALYSIS CIRCUIT W/TRANSLUM BALLOON ANGIOPLASTY Right 02/25/2023 AV FISTULOGRAM & PERIPHERAL ANGIOPLASTY performed by Jose Devine MD at [place] [facility] IR DUPLEX ULTRASOUND (FOR INTERVENTIONAL RADIOLOGY USE ONLY) 03/02/2021 IR VENOUS ACCESS NON-MEDIPORT 07/18/2022 LAPAROSCOPE PROCEDURE, LIVER N/A 04/16/2017 UNLISTED LAPAROSCOPIC PROCEDURE LIVER performed by Sukumar Polanco MD at [place] [facility] LAPAROSCOPE PROCEDURE, LIVER N/A 01/28/2022 UNLISTED LAPAROSCOPIC PROCEDURE LIVER performed by Honorio Ashford MD at [place] [facility] LAPAROSCOPIC GASTRIC BYPASS/JODY-EN-Y N/A 04/16/2017 LAPAROSCOPIC GASTRIC RESTRICTIVE BYPASS JODY EN Y performed by Sukumar Polanco MD at [place] [facility] LAPAROSCOPY; CHOLECYSTECTOMY N/A 04/16/2017 LAPAROSCOPIC CHOLECYSTECTOMY performed by Sukumar Polanco MD at [place] [facility] MISCELLANEOUS ORDER ([facility] ONLY) 05/2009 breast biopsy/ [...] performed by Sukumar Polanco MD at [place] [facility] REPLACE,COMP,FLACO CENT ACC DEV N/A 03/22/2021 REPLACEMENT COMPLETE TUNNELED CENTRAL CATHETER NO PORT performed by Luis Fernando Hassan DO at OR [facility] REVISE STOMACH-BOWEL FUSION N/A 01/28/2022 REVISION GASTROJEJUNAL ANASTOMOSIS performed by Honorio Ashford MD at [place] [facility] RMV MALG LSN TRK/ARM/LG >4.0CM Right 05/22/2021 EXCISION MALIGNANT TRUNK ARM LEG OVER 4CM performed by Diamond Rivero MD at OR [facility] RPR AA HERNIA 1ST 3-10 CM REDUCIBLE N/A 12/11/2022 INCISIONAL/VENTRAL/SPIGELIAN HERNIA REPAIR INITIAL 3-10 CM REDUCIBLE performed by Eros Dash MD at [place] [facility] TOTAL ABD HYSTERECTOMY W/WO REMOVAL OF TUBE(S) Bilateral age 33 TOTAL HYSTERECTOMY TAHBSO (endometrial ca) TRANSECTION VAGUS NRV,TRUNCAL N/A 01/28/2022 LAPAROSCOPIC TRANSECTION VAGUS NERVES TRUNCAL performed by Honorio Ashford MD at [place] [facility] UPPER GI ENDOSCOPY Family History Problem Relation Age of Onset [...] level: Not on file Occupational History Employer: [employer] Financial resource strain: Not on file Food [...] file Gets together: Not on file Attends baptism service: Not on file Active member of [...] Not on file Social History Narrative 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 Aspirin 81 MG Oral Tablet Chewable Take 1 Tab by mouth at bedtime. with food. 90 Tab 3 FreeStyle Jennifer 2 Sensor Use as directed. Replace every 14 days ([place] [facility] [place] 7 Each 3 CPAP every night at bedtime. 12 Ketoconazole 2 % External Shampoo (Nizoral) Apply to scalp once weekly. Lather and leave on for 5 minutes before rinsing. Alternate with over the counter anti- dandruff shampoos on off days. 120 mL 5 NovoLOG FlexPen 100 UNIT/ML Subcutaneous Solution Pen-injector (insulin aspart) Inject with meals using CR of 1:4 plus CF 1:40 over 150 as directed by MTM (up to 100 units per day) 105 mL 3 Lantus SoloStar 100 UNIT/ML Subcutaneous Solution Pen-injector (Insulin Glargine) Inject 16 Units under the skin in the morning. DX:E11.9 (replaces Basaglar). 30 mL 3 ProRenal + D Oral Tablet Take by [...] EVERY DAY BEFORE BEDTIME 180 Tablet 4 Atorvastatin Calcium 40 MG Oral Tablet (Lipitor) TAKE ONE TABLET BY MOUTH EVERY EVENING 90 Tablet 3 Levothyroxine Sodium 100 MCG Oral Tablet (Levoxyl) TAKE 1 TABLET BY MOUTH DAILY AT LEAST 30 MINUTESPRIOR TO FIRST MEAL OF THE DAY OR OTHER MEDICATIONS 90 Tablet 3 Gabapentin 300 MG Oral Capsule (Neurontin) Take 1 Capsule by mouth at bedtime. Follow up with your primary care provider for further management. 90 Capsule 1 Citalopram Hydrobromide 40 MG Oral [...] Inject IM as directed 1 Each 0 Current Facility-Administered Medications Medication Dose Route Frequency Provider Last Rate Last Admin vitamin b-12 (Cyanocobalamin) inj 1,000 mcg 1,000 mcg Intramuscular Q12 Weeks uLis Fernando Rojas MD 1,000 mcg at 01/02/23 1242 ALLERGIES: Review of patient's allergies indicates: Allergen [...] - Continue wearing diabetic supportive shoes. - Callus debridement performed x 2 with a 15 blade. - Pt to RTC in 3 months for further care. Instructed pt to call sooner with any problems or questions. Calli Avila DPM documented in this encounter Nursing Notes * Elisa Zuñiga LPN - 08/12/2023 10:23 AM EST Pt presents for routine diabetic nail care, no pain in feet. BSG 132 this morning. documented in this encounter Plan of Treatment Upcoming Encounters Date Type Department Care Team (Late st Contact Info) Description 08/27/2023 6:10 PM EST Pharmacy Pharmacy, [place] [address] [place] [address] [facility] [address] [place] [address] 10/16/2023 11:40 AM EDT Office Visit [place] [address] [place] [phone] Luis Fernando Rojas MD [address] [facility] [place] [address] 11/13/2023 9:40 AM EDT Office Visit Podiatry [facility] [address] [place] [address] Calli Avila, DPM [address] [place] [address] 12/02/2023 11:20 AM EDT Office Visit Sleep Disorders Ctr [facility] [address] [place] [phone] Kelsey Garcia, [address] [place] [address] Scheduled Procedures Name Priority Associated Diagnoses Date/Ti me COLONOSCOPY FLEXIBLE PROXIMA L DIAGNOSTIC Recall History of colonic polyps Health Maintenance Due Date Last Done Comments Pneumococcal Vaccine: Pediatrics (0 to 5 Years) and At-Risk Patients (6 to 64 Years) (3 - PCV) 08/30/2015 08/30/2014, 09/18/2013, 07/28/2007 Depression Screening 10/10/2021 10/10/2020 Diabetic Eye Exam 12/13/2022 12/13/2021, , 05/12/2019, Additional history exists TSH 01/23/2023 01/23/2022, 07/21, 05/18/2021, Additional history exists HbA1c 06/14/2023 12/12/2022, 06/20, 10/01/2021, Additional history exists Diabetic Foot Exam 10/16/2023 10/15/2022, 0 01/31/2021, 04/12/2020, Additional history exists Mammogram 07/08/2024 07/08/2023, 03/22, 04/05/2021, Additional history exists COLONOSCOPY-EVERY 5 YRS AGES [...] this encounter Medical Devices Implanted Type Area Wet Chemistry Analyst Device Identifier Shelf Expiration Date Model / Serial / Lot Coil Vortex 35 Pltinm [id number] - [id number] Implanted:Qty: 1 on 11/27/2021 by Sterling Cates MD at [place] [facility] Right: Upper Arm [employer] : NEURO INTR [id number] 05/16/2024 [id number] Azur 35 Detachable 5mm 11cm - [id number] Implanted:Qty: 1 on 03/19/2022 by Jose Devine MD at [place] [facility] [facility] Right: Wrist [employer] [id number] 06/19/2026 [id number] / / [id number] Mesh Flat Sheet 10x14 [id number] - [id number] Implanted:Qty: 1 on 12/11/2022 by Eros Dash MD at [place] [facility] N/A: Abdomen CR BARD : DAVOL [id number] 06/17/2027 [id number] / / [id number] documented as of this encounter Visit Diagnoses Diagnosis Onychomycosis- Primary Dermatophytosis of nail Type 2 diabetes mellitus 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 dialysis, with long-term current use of insulin (HCC) Hammer toe of right foot ESRD (end stage renal disease) on dialysis (HCC) End stage renal disease Callus Corns and callosities documented in this encounter Advance Directives Documents on File Type Date Recorded Patient 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 No Full Code 01/28/2022 11:14 AM 01/28/2022 4:47 PM Full Code 05/22/2021 12:38 PM 05/22/2021 5:48 PM This order reflects the patients wishes and were consensually agreed upon. Question Answer Comments Discussion of Advance Directives occurred with: Not Discussed Does the patient have a Living Will? No Does the patient have Health Care Power of Full Decator Operator? No Healthcare Agents on File Name Relationship Healthcare Agent Relationshi p Communication Zhen Finley Spouse Health Care Agent Care Teams Hall Porter Relationship Specialty Start Date End Date Luis Fernando Rojas MD [address] [place] [address] PCP - General Family Medicine 09/23/16 documented as of this encounter
--- OUTSIDE RECORDS SUMMARY | 2024-01-09 10:13 | External Medical Summary | Summary of Care ---
Author Name Unknown Organization [facility] Address [address] [place] [address] Phone [phone] Care Team Providers Care Bisque Kiln Placer Name Role Phone Luis Fernando Rojas MD Primary Care Provider [phone] Encounter Details Date Type Department Care Team (Late st Contact Info) Description 08/05/2023 Telephone Pulmonary Medicine, [facility] [address] [place] [address] Kelsey Garcia, [address] [place] [address] Allergies Active Allergy Reactions Criticality Noted Date Comments Salvador Inhibitors Other (Please comment) High 0 HyperKalemia documented as of this encounter (statuses as of 08/05/2023) Medications Medication Sig Dispensed Refills Start Date [...] hemoglobin A1c goal of less than 7.0% ([facility]) Inject 16 Units under the [...] 1,000 mcgIndications:S/P gastric bypass 1000 mcg IM [id number] 10/15/2022 07/19/2025 Active documented as of this encounter (statuses as of 08/05/2023) Active Problems Problem Noted Date Diagnosed Date [...] 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 10/15/2022 [facility] OTHER*[id number] 01/01/2022 S/P gastric bypass 01/01/2022 Marginal ulcer [...] Plan: [facility] since January, Dr. Magallanes. Renae-Celina from 07-25. Has dialysis catheter in the [...] as of this encounter (statuses as of 08/05/2023) Resolved Problems Problem Noted Date Diagnosed Date [...] Insulin long-term use 11/19/20182018 Overview: Duplicate terminal operations supervisor (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 insulin 11/19/2018 10/08/2022 [...] T-tube placement 04/16/2017 05/29/2017 [employer] Other*[id number] 04/13/2013 08/27/2016 Overview: Study Title: Genomic Markers for Patients with Cardiovascular Disease Project # [id number] R&D Engineer: Siena Laws MD [phone] Hypertensive heart disease 03/25/2013 1 07/29/2016 Neuropathy, [...] as of this encounter (statuses as of 08/05/2023) Immunizations Name Administration Dates Next Due COVID-19 [...] Telephone Encounter - Sakina Huang OSA - 08/05/2023 3:05 PM EST CPAP supply order entered in [facility] documented in this encounter Plan of Treatment Upcoming Encounters Date Type Department Care Team (Late st Contact Info) Description 08/27/2023 6:10 PM EST Pharmacy Pharmacy, [place] [address] [place] [address] [facility] [address] [place] [address] 10/16/2023 11:40 AM EDT Office Visit [facility] [address] [phone] Luis Fernando Rojas MD [address] [place] [facility] [place] [address] 12/02/2023 11:20 AM EDT Office Visit [facility] [address] [place] [phone] Kelsey Garcia, [address] [place] [address] Scheduled Procedures Name Priority Associated Diagnoses Date/Ti [...] this encounter Medical Devices Implanted Type Area Archivist Military History Device Identifier Shelf Expiration Date Model / Serial / Lot Coil Vortex 35 Pltinm [id number] - [id number] Implanted:Qty: 1 on 11/27/2021 by Sterling Cates MD [place] [facility] [place]: Upper Arm [employer] : NEURO INTR [id number] 05/16/2024 [id number] Azur 35 Detachable 5mm 11cm - [id number] Implanted:Qty: 1 on 03/19/2022 by Jose Devine MD at [place] [facility] [place] Right: Wrist [employer] [id number] 06/19/2026 [id number] / / [id number] Mesh Flat Sheet 10x14 [id number] - [id number] Implanted:Qty: 1 on 12/11/2022 by Erso Dash MD at [place] [facility] [place] N/A: Abdomen CR BARD : DAVOL [id number] 06/17/2027 [id number] / / [id number] documented as of this encounter Advance Directives Documents on File Type Date Recorded Patient Energy Infrastructure Engineer Expl anation POLST 11/13/2020 POLST FLAKITOA VALERIA [...] the patient have Health Care Power of Help Desk Engineer? No Full Code 01/28/2022 11:14 AM 01/28/2022 4:47 PM Full Code 05/22/2021 12:38 PM 05/22/2021 5:48 PM This order reflects the patients wishes and were consensually agreed upon. Question Answer Comments Discussion of Advance Directives occurred with: Not Discussed Does the patient have a Living Will? No Does the patient have Health Care Power of Help Desk Engineer? No Healthcare Agents on File Name Relationship Healthcare Agent [facility] p Communication Zhen Finley Spouse Health Care Agent Care Teams Bisque Kiln Placer Relationship Specialty Start Date End Date Luis Fernando Rojas MD [address] [place] [address] PCP - General Family Medicine 09/23/16 documented as of this encounter
--- OUTSIDE RECORDS SUMMARY | 2024-01-09 10:13 | External Medical Summary | Summary of Care ---
Author Name Unknown Organization [facility] Address [address] [place] [address] Phone [phone] Care Team Providers Care Manager Six Sigma Name Role Phone Luis Fernando Rojas MD Primary Care Provider [phone] Reason for Visit * Reason Comments NEW PATIENT Sleep Apnea * Evaluate & Treat - Unlimited Visits (Within 30 days (routine)) - Authorized Specialty Diagnoses / Procedures Referred By Mikey t Referred To Contact Sleep Medicine / Sleep Disorders Diagnoses MINISTERIO (obstructive sleep apnea) Megan Alex PA-C [address] [place] [address] Referral ID Status Reason Start Date Expiration Date Visits Requested Visits Authorized [id number] Authorized Specialty Services Required 06/24/2023 2 2 Encounter Details Date Type Department Care Team (Late st Contact Info) Description 08/05/2023 8:40 AM EST Office Visit Sleep Disorders Ctr [facility] [address] [place] [phone] Kelsey Garcia DO [address] [place] [address] Obstructive sleep apnea* Allergies Active Allergy Reactions Criticality Noted Date [...] with long-term current use of insulin ([facility]) Take 1 Tab by mouth at bedtime. with food. 90 Tab 3 02/16/2021 Active FreeStyle Jennifer 2 Sensor Use as directed. Replace every 14 days [place] [facility] [place] 7 [...] A1c goal of less than 7.0% ([facility]) Inject 16 Units under the skin in [...] 1,000 mcgIndications:S/P gastric bypass 1000 mcg IM [id number] 10/15/2022 07/19/2025 Active documented as of this [...] 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 10/15/2022 [facility] OTHER*[id number] 01/01/2022 S/P gastric bypass 01/01/2022 Marginal ulcer [...] T-tube placement 04/16/2017 05/29/2017 [employer] [facility] Other*[id number] 04/13/2013 08/27/2016 Overview: Study Title: Genomic Markers for Patients with Cardiovascular Disease Project # [id number] Human Resources Generalist: Siena Laws MD [phone] Hypertensive heart disease 03/25/2013 1 07/29/2016 Neuropathy, [...] Date Smoking Tobacco: Never Smokeless Tobacco: Never Tobacco Cessation:Counseling Given: Not Answered Alcohol Use Standard Drinks/Week Comments No 0 [...] Sign Reading Time Taken Comments Blood Pressure 132/80 08/05/2023 8:47 AM EST Pulse 77 08/05/2023 8:47 AM EST Temperature 36.3 C (97.3 F) 08/05/2023 8:47 AM ES T Respiratory Rate 16 08/05/2023 8:47 AM EST Oxygen Saturation 96% 08/05/2023 8:47 AM EST Inhaled Oxygen Concentration - - Weight 109.8 kg (242 lb) 08/05/2023 8:47 AM EST Height 161.3 cm (5' 3.5") 08/05/2023 8:47 AM EST Body Mass Index 42.2 08/05/2023 8:47 AM EST documented in this encounter Functional Status Functional [...] as of this encounter Progress Notes * Kelsey Garcia, DO - 08/05/2023 8:55 AM EST Sleep Medicine Follow-Up HISTORY: Candi Finley is a 62 year old female for follow up of severe MINISTERIO. Hx CHF, DM with neuropathy, depression, s/p gastric bypass PSG 2007 (weight 260 lbs): AHI 8.4, SpO2 reuben 81%, PLMI 55.8 Split-night PSG 07/2009 (weight 286 lbs): AHI 5.7, + hypoxia, titrated to CPAP 11 cwp with 3 L/min oxygen. Split-night PSG 08/14/2018 (weight 250 lbs): AHI 32.4, SpO2 reuben 83%, PLMI 42.6 baseline treatment portion, titrated to CPAP 15 cwp with resolution of hypoxia. Last seen in Sleep Medicine 10/25/20 by Veena SINGER. Using CPAP 14-18 cwp nightly, some issues with mask fit. Residual AHI 4.8; adjusted to 15-19 cwp. She cannot get the mask to seal on her face right. She brought an unused mask/headgear with her, and we did a preliminary adjustment of the headgear. She has not used the CPAP for a year or so. Her CPAP was affected by the Respironic recall. She has now received the replacement device. SO & SM insomnia now. Nighttime awakenings: 3-4 times a night, for unclear reason. Takes a while to get back to sleep. reports mouthbreathing, snoring. She received the recall replacement device, but has not tried to use it yet. Snoring on CPAP: no (she does without). Daytime napping: yes, daily nap Drowsy driving: only if long drives. Accidents or near-misses due to drowsiness while driving: no Interface: lower-profile FFM (+ mouthbreathing) Mask leak: sometimes Washington Sleepiness Scale: 10 Mod F.O.S.Q.: 31 Washington Sleepiness Scale Question 08/05/2023 8:49 AM EST - Filed by Saida Funez LPN What is the chance you will doze off in the following situation? Sitting and reading Moderate chance of dozing Watching TV High chance of dozing Sitting inactive in a public place, such as a theater or meeting No chance of dozing As a passenger in a car for an hour without a break Slight chance of dozing Lying down to rest in the afternoon when circumstances permit High chance of dozing When sitting and talking to someone No chance of dozing When sitting quietly after lunch without alcohol Slight chance of dozing In a car, while stopped for a few minutes in traffic No chance of dozing Score (range: 0 - 24) 10 Functional Outcomes Of Sleep Question 08/05/2023 8:50 AM EST - Filed by Saida Funez LPN Please complete the following questions. Do you have difficulty concentrating because you are sleepy or tired? Yes, a little Do you have difficulty remembering things because you are sleepy or tired? Yes, a little Do you have difficulty operating a motor vehicle for short distances (less than 100 miles) because you become sleepy? No Do you have difficulty operating a motor vehicle for long distances (more than 100 miles) because you become sleepy? Yes, a little Do you have difficulty visiting family or friends in their home because you become sleepy or tired?No Has your relationship with family, friends, or work colleagues been affected because you are sleepyor tired? No Do you have difficulty watching a movie or video because you become sleepy or tired? Yes, extreme Do you have difficulty being as active as you want to be in the evening because you are tired or sleepy? Yes, a little Do you have difficulty being as active as you want to be in the morning because you are tired or sleepy? Yes, a little Has your mood been affected because you are sleepy or tired? Yes, a little Score (range: 10 - 40) 31 CPAP Compliance: No data from the past year. Pressure settin-18 cmH2O Equipment: DME Provider is Talia Uses a 3[employer] Auto (which has been replaced through the recall). Additional changes in health in the interim of care: She is a dialysis patient now. Often naps for about an hour at dialysis. Patient Active Problem List Diagnosis Code Dyslipidemia, goal LDL below 100 E78.5 HX-MALIG SKIN MELANOMA - MIS L 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 Z85.820 Type 2 diabetes mellitus with hemoglobin A1c goal of less than 7.0% (HCC) E11.9 Vitamin D deficiency E55.9 HTN, goal below 140/90 I10 Major depressive disorder, recurrent episode, moderate with seasonal pattern (HCC) F33.1 Rosacea L71.9 Hypothyroidism (acquired) E03.9 Mitral annular calcification I34.81 Type 2 diabetes mellitus with diabetic polyneuropathy, with long-term current use of insulin ([facility]) E11.42, Z79.4 Chronic diastolic heart failure ([facility]) I50.32 History of endometrial cancer Z85.42 Hyperparathyroidism, secondary renal ([facility]) N25.81 MINISTERIO on CPAP G47.33 Stable proliferative diabetic retinopathy of both eyes associated with type 2 diabetes mellitus ([facility]) E11.3553 SALVADOR inhibitor intolerance Z78.9 SSS (sick sinus syndrome) ([facility]) I49.5 PAT (paroxysmal atrial tachycardia) I47.19 Gastroesophageal reflux disease without esophagitis K21.9 Hypertensive 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 congestive heart failure and stage 5 chronic kidney disease on chronic dialysis ([facility]) I13.2, I50.32, Z99.2, N18.6 Morbid obesity with BMI of 40.0-44.9, adult ([facility]) E66.01, Z68.41 Postsurgical malabsorption, not elsewhere classified K91.2 Diabetic gastroparesis E11.43, K31.84 Type 2 diabetes mellitus 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 dialysis, with long-term current use of insulin ([facility]) E11.22, N18.6, Z99.2, Z79.4 Presence of cardiac pacemaker Z95.0 ESRD (end stage renal disease) on dialysis ([facility]) N18.6, Z99.2 Marginal ulcer K28.9 Aortic atherosclerosis ([facility]) I70.0 [facility] OTHER*[id number] S/P gastric bypass Z98.84 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 ([facility]) E11.3533 Other specified glaucoma H40.89 Pulmonary hypertension, unspecified ([facility]) I27.20 Recurrent ventral incisional hernia K43.2 Outpatient Medications Marked as Taking for the 08/05/23 encounter (Office Visit) with Kelsey Garcia, DO Medication Sig amLODIPine Besylate 5 MG Oral Tablet (Norvasc) TAKE ONE TABLET BY MOUTH EVERY DAY IN THE MORNING (Patient taking differently: Take 1 Tablet by mouth at bedtime.) BD Pen Needle Mini U/F 31G X 5 MM (Insulin Pen Needle) Use 4 times daily with insulin Calcium Acetate (Phos Binder) 667 MG Oral Capsule (Phoslo) TAKE THREE CAPSULES BY MOUTH WITH EACH MEAL AND TWO CAPSULES WITH SNACKS Calcium Citrate-Vitamin D 315-5 MG-MCG Oral Tablet Take 1 Tablet by mouth in the morning. 600 mg ofcalcium twice daily + 20 mcg of vitamin d twice daily. Omeprazole 20 MG Oral Capsule Delayed Release (PriLOSEC) Take 1 Capsule by mouth in the morning. Citalopram Hydrobromide 40 MG Oral Tablet (CeleXA) Take 1 Tablet by mouth in the morning. Gabapentin 300 MG Oral Capsule (Neurontin) Take 1 Capsule by mouth at bedtime. Follow up with your primary care provider for further management. Carvedilol 12.5 MG Oral Tablet (Coreg) TAKE ONE TABLET BY MOUTH EVERY DAY IN THE MORNING AND TAKE ONE TABLET BY MOUTH EVERY DAY BEFORE BEDTIME hydrALAZINE HCl 100 MG Oral Tablet TAKE 1 TABLET BY MOUTH EVERY DAY IN THE MORNING AND 1 TABLET AT NOON, AND 1 TABLET AT BEDTIME Acetaminophen 325 MG Oral Tablet (Tylenol) Take 2 Tablets by mouth every 6 hours as needed. Atorvastatin Calcium 40 MG Oral Tablet (Lipitor) TAKE ONE TABLET BY MOUTH EVERY EVENING Levothyroxine Sodium 100 MCG Oral Tablet (Levoxyl) TAKE 1 TABLET BY MOUTH DAILY AT LEAST 30 MINUTESPRIOR TO FIRST MEAL OF THE DAY OR OTHER MEDICATIONS Biotin 1000 MCG Oral Tablet Take 1 [...] times. If chest pain continues, call 911. Vitamin D 25 MCG (1000 UT) Oral Tablet Take 5 Tablets by mouth every morning. ProRenal + D Oral Tablet Take by mouth 1 Tablet daily . Lantus SoloStar 100 UNIT/ML Subcutaneous Solution Pen-injector (Insulin Glargine) Inject 16 Units under the skin in the morning. DX:E11.9 (replaces Basaglar). NovoLOG FlexPen 100 UNIT/ML Subcutaneous Solution Pen-injector (insulin aspart) Inject with meals using CR of 1:4 plus CF 1:40 over 150 as directed by MTM (up to 100 units per day) Ketoconazole 2 % External Shampoo (Nizoral) Apply to scalp once weekly. Lather and leave on for 5 minutes before rinsing. Alternate with over the counter anti- dandruff shampoos on off days. CPAP every night at bedtime. 12 FreeStyle Jennifer 2 Sensor Use as directed. Replace every 14 days (supplied through DME) Aspirin 81 MG Oral Tablet Chewable Take 1 Tab by mouth at bedtime. with food. Melatonin 10 MG Tablet Take 12 mg by mouth at bedtime. Current Facility-Administered Medications for the 08/05/23 encounter (Office Visit) with Kelsey Garcia DO Medication vitamin b-12 (Cyanocobalamin) inj 1,000 mcg PHYSICAL EXAM: Filed Vitals: 08/05/23 0847 BP: 132/80 Pulse: 77 Resp: 16 Temp: 36.3 C (97.3 F) TempSrc: Tympanic SpO2: 96% Weight: 109.8 kg (242 lb) Height: 1.613 m (5' 3.5") Body mass index is 42.2 kg/m. General: alert, no acute distress Head: NC/AT Lungs: normal respiratory effort Neuro: speech clear and appropriate ASSESSMENT/PLAN: Obstructive sleep apnea - severe by AHI criteria, per most recent split-night PSG - as she now has the recall replacement device, will plan to resume CPAP use - resume PAP at current setting 14-18 cmH2O - we did a preliminary adjustment of her mask in the office today. If she has continued difficulty with leak, she should contact her DME for mask fitting (due to mouthbreathing should use FFM or lower-profile FFM). - DME: she would like to change to [facility]. - Routine cleaning and change of supplies as needed. - Continue to avoid driving when feeling sleepy/drowsy. Follow-up with Sleep Medicine in 3 months. Kelsey Garcia DO documented in this encounter Nursing Notes * Saida Funez LPN - 08/05/2023 8:50 AM EST Chief Complaint Patient presents with NEW PATIENT Sleep Apnea PSG: approx 2 years ago Cpap-not used in the past year d/t mask issues DME: [facility] Neck: 16.75" Washington Sleepiness Scale Question 08/05/2023 8:49 AM EST - Filed by Saida Funez LPN What is the chance you will doze off in the following situation? Sitting and reading Moderate chance of dozing Watching TV High chance of dozing Sitting inactive in a public place, such as a theater or meeting No chance of dozing As a passenger in a car for an hour without a break Slight chance of dozing Lying down to rest in the afternoon when circumstances permit High chance of dozing When sitting and talking to someone No chance of dozing When sitting quietly after lunch without alcohol Slight chance of dozing In a car, while stopped for a few minutes in traffic No chance of dozing Score (range: 0 - 24) 10 Functional Outcomes Of Sleep Question 08/05/2023 8:50 AM EST - Filed by Saida Funez LPN Please complete the following questions. Do you have difficulty concentrating because you are sleepy or tired? Yes, a little Do you have difficulty remembering things because you are sleepy or tired? Yes, a little Do you have difficulty operating a motor vehicle for short distances (less than 100 miles) because you become sleepy? No Do you have difficulty operating a motor vehicle for long distances (more than 100 miles) because you become sleepy? Yes, a little Do you have difficulty visiting family or friends in their home because you become sleepy or tired?No Has your relationship with family, friends, or work colleagues been affected because you are sleepyor tired? No Do you have difficulty watching a movie or video because you become sleepy or tired? Yes, extreme Do you have difficulty being as active as you want to be in the evening because you are tired or sleepy? Yes, a little Do you have difficulty being as active as you want to be in the morning because you are tired or sleepy? Yes, a little Has your mood been affected because you are sleepy or tired? Yes, a little Score (range: 10 - 40) 31 documented in this encounter Plan of Treatment Upcoming Encounters Date Type Department Care Team (Late st Contact Info) Description 08/27/2023 6:10 PM EST [address] [address] [facility] [address] [facility] [facility] [address] 10/16/2023 11:40 AM EDT Office Visit [facility] [place] [address] [facility] [facility] [phone] Luis Fernando Rojas [facility] [address] [facility] [address] 12/02/2023 11:20 AM EDT Office Visit Sleep Disorders Ctr [facility] [address] [place] [phone] Kelsey Garcia, [address] [place] [address] Scheduled Procedures Name Priority Associated Diagnoses Date/Ti [...] this encounter Medical Devices Implanted Type Area Bleacher Lard Device Identifier Shelf Expiration Date Model / Serial / Lot Coil Vortex 35 Pltinm [id number] - [id number] Implanted:Qty: 1 on 11/27/2021 by Sterling Cates MD at OR [facility] [place] Right: Upper Arm [employer] : NEURO INTR [id number] 05/16/2024 [id number] Azur 35 Detachable 5mm 11cm - [id number] Implanted:Qty: 1 on 03/19/2022 by Jose Devine MD at OR [facility] [place] Right: Wrist Vacatia [id number] 06/19/2026 [id number] / / [id number] Mesh Flat Sheet 10x14 [id number] - [id number] Implanted:Qty: 1 on 12/11/2022 by Eros Dash MD at OR [facility] [place] N/A: Abdomen CR BARD : DAVOL [id number] 06/17/2027 [id number] / / [id number] documented as of this encounter Visit Diagnoses Diagnosis Obstructive sleep apnea- Primary Obstructive sleep apnea (adult) (pediatric) documented in this encounter Advance Directives Documents on File Type Date Recorded Patient Data Warehousing Specialist Saranya FIGUEROA 11/13/2020 POLST NASREEN SHAW ORDERS FOR LIFE-SUSTAINING [...] the patient have Health Care Power of Blood Bank Manager? No Full Code 01/28/2022 11:14 AM 01/28/2022 4:47 PM Full Code 05/22/2021 12:38 PM 05/22/2021 5:48 PM This order reflects the patients wishes and were consensually agreed upon. Question Answer Comments Discussion of Advance Directives occurred with: Not Discussed Does the patient have a Living Will? No Does the patient have Health Care Power of Blood Bank Manager? No Healthcare Agents on File Name Relationship [facility] p Communication Zhen Finley Spouse Health Care Agent Care Teams Manager Six Sigma Relationship Specialty Start Date End Date Luis Fernando Rojas MD [address] [place] [address] PCP - General Family Medicine 09/23/16 documented as of this encounter
--- OUTSIDE RECORDS SUMMARY | 2024-01-09 10:13 | External Medical Summary | Summary of Care ---
Author Name Unknown Organization [facility] Address [address] [place] [address] Phone [phone] Care Team Providers Care Superintendent Refuse Disposal Name Role Phone Luis Fernando Rojas MD Primary Care Provider [phone] Encounter Details Date Type Department Care Team (Late st Contact Info) Description 08/05/2023 Referral Triage Care Coordination and Integration [address], [place] [phone] Winnie Tucker, MINISTERIO [address], [place] [phone] Allergies Active Allergy Reactions Criticality Noted Date [...] Replace every 14 days ([place] [facility] 7 Each 3 05/17/2021 Active CPAP every [...] hemoglobin A1c goal of less than 7.0% ([facility]) Inject 16 Units under the [...] 1,000 mcgIndications:S/P gastric bypass 1000 mcg IM [id number] 10/15/2022 07/19/2025 Active documented as of this [...] 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 10/15/2022 [facility] OTHER*[id number] 01/01/2022 S/P gastric bypass 01/01/2022 Marginal ulcer [...] T-tube placement 04/16/2017 05/29/2017 [employer] Other*[id number] 04/13/2013 08/27/2016 Overview: Study Title: Genomic Markers for Patients with Cardiovascular Disease Project # [id number] Manager Of Pmo: Siena Laws MD [phone] Hypertensive heart disease 03/25/2013 1 07/29/2016 Neuropathy, [...] st Contact Info) Description 08/27/2023 6:10 PM [facility] Pharmacy Pharmacy, [place] [address] [place] [address] [facility] [address] [place] [address] 10/16/2023 11:40 AM EDT Office Visit [facility], [place] [address] [place] [address] Luis Fernando Rojas MD [address] [place] [address] 12/02/2023 11:20 AM EDT Office Visit [facility] Disorders Ctr [facility] [address] [place] [phone] Kelsey Garcia, [address] [place] [id number] Scheduled Procedures Name Priority Associated Diagnoses Date/Ti [...] this encounter Medical Devices Implanted Type Area Contact Lens Polisher Device Identifier Shelf Expiration Date Model / Serial / Lot Coil Vortex 35 Pltinm [id number] - [id number] Implanted:Qty: 1 on 11/27/2021 by Sterling Cates MD at OR [facility] [place] Right: Upper Arm [employer] : NEURO INTR [id number] 05/16/2024 [id number] / [id number] Azur 35 Detachable 5mm 11cm - [id number] Implanted:Qty: 1 on 03/19/2022 by Jose Devine MD at OR [facility] [place] Right: Wrist [employer] [id number] 06/19/2026 [id number] / / [id number] Mesh Flat Sheet 10x14 [id number] - [id number] Implanted:Qty: 1 on 12/11/2022 by Eros Dash MD at OR [facility] [place] N/A: Abdomen CR BARD : DAVOL [id number] 06/17/2027 [id number] / / [id number] documented as of this encounter Advance Directives Documents on File Type Date Recorded Patient Prison Keeper Expl anation POLST 11/13/2020 POLST PENNSYLVA VALERIA [...] the patient have Health Care Power of Lockstitch Lining Maker? No Full Code 01/28/2022 11:14 AM 01/28/2022 4:47 PM Full Code 05/22/2021 12:38 PM 05/22/2021 5:48 PM This order reflects the patients wishes and were consensually agreed upon. Question Answer Comments Discussion of Advance Directives occurred with: Not Discussed Does the patient have a Living Will? No Does the patient have Health Care Power of Lockstitch Lining Maker? No Healthcare Agents on File Name Relationship Healthcare Agent [facility] p Communication Zhen Finley Spouse Health Care Agent Care Teams Superintendent Refuse Disposal Relationship Specialty Start Date End Date Luis Fernando Rojas MD [address] [facility] [place] [id number] PCP - General Family Medicine 09/23/16 documented as of this encounter
--- OUTSIDE RECORDS SUMMARY | 2024-01-09 10:13 | External Medical Summary | Summary of Care ---
Author Name Unknown Organization [facility] Address [address] [place] [address] Phone [phone] Care Team Providers Care Inspector Mechanical Name Role Phone Luis Fernando Rojas MD Primary Care Provider [phone] Reason for Referral * Evaluate & Treat - Unlimited Visits (Within 30 days (routine)) - Authorized Specialty Diagnoses / Procedures Referred By Mikey torres Referred To Contact Dietitian / Nutrition Services Diagnoses Class 3 severe obesity due to excess calories with serious comorbidity and body mass index (BMI) of 40.0 to 44.9 in adult ([facility]) Luis Fernando Rojas MD [address] [place] [address] Referral ID Status Reason Start Date Expiration Date Visits Requested Visits Authorized [id number] Authorized Specialty Services Required 08/14/2023 999 999 Question Answer Referral Priority Within 30 days (routine) Where should this appointment be scheduled? Luis A What condition is the patient being seen for? CKD Comments Obesity Reason for Visit * Reason Onset Date Comments Med Request 08/14/2023 Encounter Details Date Type Department Care Team (Late st Contact Info) Description 08/14/2023 Erp Pm Telephone Care Coordination and Integration [address] [place] [address] Adrianna Garg RN [address] [place] [address] Med Request Allergies Active Allergy Reactions Criticality Noted Date Comments Salvador Inhibitors Other (Please comment) High 0 HyperKalemia documented as of this encounter (statuses as of 08/19/2023) Medications Medication Sig Dispensed Refills Start Date End Date Status Melatonin 10 MG Tablet Take 12 mg by mouth at bedtime. 0 Active Aspirin 81 MG Oral Tablet ChewableIndication s:Type 2 diabetes mellitus 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 dialysis, with long-term current use of insulin ([facility]) Take 1 Tab by mouth at bedtime. with food. 90 Tab 3 02/16/2021 Active FreeStyle Jennifer 2 Sensor Use as directed. 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 10/15/2022 [facility] OTHER*[id number] 01/01/2022 S/P gastric bypass 01/01/2022 Marginal ulcer [...] as of this encounter (statuses as of 08/19/2023) Resolved Problems Problem Noted Date Diagnosed Date [...] T-tube placement 04/16/2017 05/29/2017 [employer] [facility] Other*[id number] 04/13/2013 08/27/2016 Overview: Study Title: Genomic Markers for Patients with Cardiovascular Disease Project # [id number] Fast Food Assistant Restaurant Manager: Siena Laws MD [phone] Hypertensive heart disease 03/25/2013 1 07/29/2016 Neuropathy, [...] as of this encounter (statuses as of 08/19/2023) Immunizations Name Administration Dates Next Due COVID-19 [...] encounter Miscellaneous Notes * Telephone Encounter - Danyelle Conti OSA - 08/19/2023 1:16 PM EST MINISTERIO [place] 08/19/2023 1:16 PM * Telephone Encounter - Adrianna Garg RN - 08/15/2023 9:35 AM EST Will forward to GI nutrition scheduling to set up an appointment Adrianna Garg RN * Telephone Encounter - Luis Fernando Rojas MD - 08/14/2023 2:40 PM EST Notify Pt: I would suggest she start with licensed optical dispenser. Approved referral A GLP1 med would not be a contraindication but if we were going to try a GLP1 med, would need nephrology to approve and I would suggest we have her connect again with [facility] to help with getting her started. * Telephone Encounter - Adrianna Garg RN - 08/14/2023 10:[address] Rojas, I spoke with Candi Finley, she wanted me to ask you if she can be ordered a medication to loose weight-she would also be willing to see a licensed optical dispenser/weight management if you would want to sign a referral. Thanks Adrianna Garg RN documented in this encounter Plan of Treatment Upcoming Encounters Date Type Department Care Team (Late st Contact Info) Description 08/27/2023 6:10 PM EST Pharmacy Pharmacy, [place] [address] [place] [facility] [place] [address] [facility] [address] [place] [facility] [place] [address] 10/16/2023 11:40 AM EDT Office Visit [place] [address] [place] [facility] [place] [address] Luis Fernando Rojas MD [address] [place] [facility] [place] [address] 11/13/2023 9:40 AM EDT Office Visit Podiatry [facility] [address] [place] [address] Calli Avila, DPM [address] [place] [address] 12/02/2023 11:20 AM EDT Office Visit Sleep Disorders Ctr [facility] [address] [place] [phone] Kel[place], [address] [place] [address] Scheduled Procedures Name Priority Associated Diagnoses Date/Ti [...] 07/28/2007 Diabetic Eye Exam 12/13/2022 12/13/2021, , 05/12/2019, Additional history exists TSH 01/23/2023 01/23/2022, 07/21, 05/18/2021, Additional history exists HbA1c 06/14/2023 12/12/2022, 06/20, 10/01/2021, Additional history exists Diabetic Foot Exam 10/16/2023 10/15/2022, 0 01/31/2021, 04/12/2020, Additional history exists Mammogram 07/08/2024 07/08/2023, 03/22, 04/05/2021, Additional history exists Depression Screening 08/14/2024 08/14/2023 [...] this encounter Medical Devices Implanted Type Area Machinery Cleaner Device Identifier Shelf Expiration Date Model / Serial / Lot Coil Vortex 35 Pltinm [id number] - [id number] Implanted:Qty: 1 on 11/27/2021 [place] C[place] [facility] [place]: Upper Arm [employer] : NEURO INTR [id number] 05/16/2024 [id number] Azur 35 Detachable 5mm 11cm - [id number] Implanted:Qty: 1 on 03/19/2022 by Jose Devine [place] [facility] [place]: Wrist PrePlay [id number] 06/19/2026 [id number] / / [id number] Mesh Flat Sheet 10x14 [id number] - [id number] Implanted:Qty: 1 on 12/11/2022 by Eros Dash MD [place] [facility] N/A: Abdomen CR BARD : DAVOL [id number] 06/17/2027 [id number] / / [id number] documented as of this encounter Visit Diagnoses Diagnosis Class 3 severe obesity due to excess calories with serious comorbidity and body mass index (BMI) of 40.0 to 44.9 in adult (HCC)- Primary documented in this encounter Advance Directives Documents on File Type Date Recorded Patient Workforce Development Specialist Saranya FIGUEROA 11/13/2020 POLST NASREEN SHAW [...] the patient have Health Care Power of Field Crop I Farmworker? No Full Code 01/28/2022 11:14 AM 01/28/2022 4:47 PM Full Code 05/22/2021 12:38 PM 05/22/2021 5:48 PM This order reflects the patients wishes and were consensually agreed upon. Question Answer Comments Discussion of Advance Directives occurred with: Not Discussed Does the patient have a Living Will? No Does the patient have Health Care Power of Field Crop I Farmworker? No Healthcare Agents on File Name Relationship Healthcare Agent [facility] p Communication Zhen Finley Spouse Health Care Agent Care Teams Inspector Mechanical Relationship Specialty Start Date End Date Luis Fernando Rojas MD [address] [place] [address] PCP - General Family Medicine 09/23/16 documented as of this encounter
--- OUTSIDE RECORDS SUMMARY | 2024-01-09 10:13 | External Medical Summary | Summary of Care ---
Author Name Unknown Organization [facility] Address [address] [place] [address] Phone [phone] Care Team Providers Care Bobbin Sorter Name Role Phone Luis Fernando Rojas MD Primary Care Provider [phone] Reason for Referral * Social Care (Within 10 days (routine)) - Authorized Specialty Diagnoses / Procedures Referred By Mikey torres Referred To Contact Wafer Production Lead Worker Diagnoses ESRD (end stage renal disease) on dialysis (HCC) Sterling Camp DO [address] [address] Referral ID Status Reason Start Date Expiration Date Visits Requested Visits Authorized [id number] Authorized Specialty Services Required 08/04/2023 999 999 Question Answer Referral Priority Within 10 days (routine) Where should this appointment be scheduled? [facility] Role Sterilization Tech Sterilization Tech Referral Reason ESRD Comments Is patient being transitioned from [facility] to Complex Case Management? Yes Best source of contact for the patient:Patient Patient has remote monitoring device(s): No Connectivity in the home: No: no service or internet in the home Reason for Visit * Reason Onset Date Comments [facility]: Maintenance 08/04/2023 Encounter Details Date Type Department Care Team (Latest Contact Info) Description 08/04/2023 10:00 AM EST Scheduled Telephone [facility], [facility] [address] [place] [address] Heidi Garcia RN [address] [place] [address] ESRD (end stage renal disease) on dialysis ([facility])* Allergies Active Allergy Reactions Criticality Noted Date Comments Salvador Inhibitors Other (Please comment) High 0 HyperKalemia documented as of this encounter (statuses as of 08/04/2023) Medications Medication Sig Dispensed Refills Start Date End Date Status Melatonin 10 MG Tablet Take 12 mg by mouth at bedtime. 0 Active Aspirin 81 MG Oral Tablet ChewableIndication s:Type 2 diabetes mellitus 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 dialysis, with long-term current use of insulin ([facility]) Take 1 Tab by mouth at bedtime. with food. 90 Tab 3 02/16/2021 Active FreeStyle Jennifer 2 Sensor Use as directed. 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 10/15/2022 [facility] OTHER*[id number] 01/01/2022 S/P gastric bypass 01/01/2022 Marginal ulcer [...] as of this encounter (statuses as of 08/04/2023) Resolved Problems Problem Noted Date Diagnosed Date [...] 10/08/2022 Insulin long-term use 11/19/20182018 Overview: Duplicate oysterman (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 insulin 11/19/2018 10/08/2022 Morbid [...] secondary renal 05/21/2018 09/23/2018 Breast cancer screening 03/10/2018 1107/2017 Overview: In conclusion, our recommendation for this [...] T-tube placement 04/16/2017 05/29/2017 [employer] [facility] Other*[id number] 04/13/2013 08/27/2016 Overview: Study Title: Genomic Markers for Patients with Cardiovascular Disease Project # [id number] Drive Worker: Siena Laws MD [phone] Hypertensive heart disease 03/25/2013 1 07/29/2016 Neuropathy, [...] as of this encounter (statuses as of 08/04/2023) Immunizations Name Administration Dates Next Due COVID-19 mRNA, LNP-s, No Pre serve, 2-Dose Series (Moderna) 04/09/2021,09/23/2020,08/19/2020 COVID-19, LNP-s, No Preserve , Espinoza-sucrose, Ages 12+ (Pfizer) 01/08/2022 Hepatitis B Vaccine, Recombi nant, Adjuvanted, 20 mcg/mL (Heplisav-B) 09/05/2021,05/09/2021,04/04/2021,02/18 Hepatitis B, 20+ yrs 09/16/2018,04/14/2018,03/1104/11/2018 Pneumococcal Polysaccharide PPV23 (Pneumovax) 08/30/2014,09/18/2013,07/28/2007 Seasonal Influenza Virus Vac cine, Unspecified Formulation [...] encounter Miscellaneous Notes * Telephone Encounter - Heidi Garcia RN - 08/04/2023 5:37 PM EST Telephone call to pt for wellness check. She states she is doing well and would like to proceed with graduation from [employer]. She is attending dialysis and still able to make it out to her appts. She is agreeable to having and outpatient CM so will refer to [facility] for further management. Pt denies any concerns. States she has been feeling well, no issues. Graduated from [facility] today. documented in this encounter Plan of Treatment Upcoming Encounters Date Type Department Care Team (Late st Contact Info) Description 08/05/2023 8:40 AM EST Office Visit Sleep Disorders Ctr [facility] [address] [place] [phone] Kelsey Garcia, [address] [place] [address] 08/27/2023 6:10 PM EST Pharmacy Pharmacy, [place] [address] [place] [address] [facility] [address] [place] [address] 10/16/2023 11:40 AM EDT [facility] [place] [address] [place] [phone] Luis Fernando Rojas MD [address] [place] [address] Scheduled Procedures Name Priority Associated Diagnoses Date/Ti me COLONOSCOPY FLEXIBLE PROXIMA L DIAGNOSTIC Recall History of colonic polyps Scheduled Referrals Name Type Priority Associated Diagnoses Orde r Schedule POPULATION HEALTH REFERRAL OP Referral Within 10 days (routine) ESRD (end stage renal disease) on dialysis (HCC) Ordered: 08/04/2023 Health Maintenance Due Date Last Done Comments [...] Discontinued 021, 12/09/2019, 01/02/2016, Additional history exists Hepatitis B Completed 09/05/2021, 04/21, 04/04/2021, Additional history exists Influenza Vaccine (FLU shot) Completed 04/17/2023, 04/20/2022, 05/08/2021, Additional history exists COVID-19 Vaccine Completed 06/02/2023, , 04/09/2021, Additional history exists GARDASIL-HPV IMMUNIZATION SERIES Aged Out No longer eligible based on patient's age to complete this topic MENINGOCOCCAL (MENACTRA/MENVEO) Aged Out No longer eligible based on patient's age to complete this topic documented as of this encounter Medical Devices Implanted Type Area Wire Wheeler Device Identifier Shelf Expiration Date Model / Serial / Lot Coil Vortex 35 Pltinm [id number] - [id number] Implanted:Qty: 1 on 11/27/2021 by Sterling Cates MD at OR [facility] [place] Right: Upper Arm [employer] : NEURO INTR [id number] 05/16/2024 [id number] Azur 35 Detachable 5mm 11cm - [id number] Implanted:Qty: 1 on 03/19/2022 by Jose Devine MD at OR [facility] [place] Right: Wrist [employer] [id number] 06/19/2026 [id number] / / [id number] Mesh Flat Sheet 10x14 [id number] - [id number] Implanted:Qty: 1 on 12/11/2022 by Eros Dash MD at OR [facility] [place] N/A: Abdomen CR BARD : DAVOL [id number] 06/17/2027 [id number] / / [id number] documented as of this encounter Visit Diagnoses Diagnosis ESRD (end stage renal disease) on dialysis (HCC)- Primary End stage renal disease documented in this encounter Advance Directives Documents on File Type Date Recorded Patient Chief Cook Expl anation POLST 11/13/2020 POLST FLAKITOA VALERIA [...] the patient have Health Care Power of Manager Assembly? No Full Code 01/28/2022 11:14 AM 01/28/2022 4:47 PM Full Code 05/22/2021 12:38 PM 05/22/2021 5:48 PM This order reflects the patients wishes and were consensually agreed upon. Question Answer Comments Discussion of Advance Directives occurred with: Not Discussed Does the patient have a Living Will? No Does the patient have Health Care Power of Manager Assembly? No Healthcare Agents on File Name Relationship Healthcare Agent [facility] p Communication Zhen Finley Spouse Health Care Agent Care Teams Bobbin Sorter Relationship Specialty Start Date End Date Luis Fernando Rojas MD [address] [place] [address] PCP - General Family Medicine 09/23/16 documented as of this encounter
--- OUTSIDE RECORDS SUMMARY | 2024-01-09 10:13 | External Medical Summary | Summary of Care ---
Author Name Unknown Organization [facility] Address [address] [place] [address] Phone [phone] Care Team Providers Care Surgical Scheduler Name Role Phone Luis Fernando Rojas MD Primary Care Provider [phone] Reason for Visit * Reason Onset Date Comments Health Maintenance 08/21/2023 Encounter Details Date Type Department Care Team (Late st Contact Info) Description 08/21/2023 Telephone [facility] [address] [place] [address] Luis Fernando Rojas MD [address] [place] [address] Health Maintenance Allergies Active Allergy Reactions Criticality Noted Date Comments Salvador Inhibitors Other (Please comment) High 0 HyperKalemia documented as of this encounter (statuses as of 08/21/2023) Medications Medication Sig Dispensed Refills Start Date [...] goal of less than 7.0% ([facility]) Inject 16 Units under the [...] 1,000 mcgIndications:S/P gastric bypass 1000 mcg IM [id number] 10/15/2022 07/19/2025 Active documented as of this encounter (statuses as of 08/21/2023) Active Problems Problem Noted Date Diagnosed Date [...] 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 Magallanes. Renae-W-Briana from [...] as of this encounter (statuses as of 08/21/2023) Resolved Problems Problem Noted Date Diagnosed Date [...] 10/08/2022 Insulin long-term use 11/19/20182018 Overview: Duplicate exterminator (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 insulin 11/19/2018 10/08/2022 [...] T-tube placement 04/16/2017 05/29/2017 [employer] Other*[id number] 04/13/2013 08/27/2016 Overview: Study Title: Genomic Markers for Patients with Cardiovascular Disease Project # [id number] Park Manager: Siena Laws MD [phone] Hypertensive heart disease 03/25/2013 1 07/29/2016 Neuropathy, [...] as of this encounter (statuses as of 08/21/2023) Immunizations Name Administration Dates Next Due COVID-19 [...] encounter Miscellaneous Notes * Telephone Encounter - Adela Petit LPN - 08/21/2023 11:07 AM EST Care Gaps Comprehensive Care Outreach Last Office/Telemedicine Visit: 04/17/2023 (in office), 10/08/2022 (telemedicine) Next Office Visit: 10/16/2023 Hemoglobin AIC Results: Lab Results Component Value Date/Time HEMOGLOBIN A1C - [facility] 7.8 (H) 12/12/2022 07:18 AM HEMOGLOBIN A1C - [facility] 6.9 (H) 07/01/2022 09:10 AM HEMOGLOBIN A1C - [facility] 6.7 (H) 10/01/2021 09:06 AM HEMOGLOBIN A1C - [facility] 7.6 (H) 04/26/2020 09:24 AM HEMOGLOBIN A1C - [facility] 7.4 (H) 03/17/2020 09:21 AM HEMOGLOBIN A1C - [facility] 8.5 (H) 12/09/2019 08:56 AM BP Readings from Last 1 Encounters: 08/05/23 132/80 Reviewed Health Maintenance below: Health Maintenance Topic Date Due Pneumococcal Vaccine: Pediatrics (0 to 5 Years) and At-Risk Patients (6 to 64 Years) (3 - PCV) 08/30/2015 Diabetic Eye Exam 12/13/2022 TSH 01/23/2023 HbA1c 06/14/2023 Diabetic Foot Exam 10/16/2023 Labs ordered and scheduled Eye will schedule Care Gap Outreach Action Taken: Spoke to patient documented in this encounter Plan of Treatment Upcoming Encounters Date Type Department Care Team (Late st Contact Info) Description 08/27/2023 6:10 PM EST Pharmacy Pharmacy, [place] [address] [place] [address] [facility] [address] [place] [address] 09/09/2023 10:00 AM EST Telemedicine Nutrition, [place] [address] [place] [address] Megan Mak, RDN [address] [place] [address] 10/09/2023 9:00 AM EDT Laboratory Laboratory, [place] [address] [place] [phone] [place] [address] [place] [address] 10/16/2023 11:40 AM EDT Office Visit [facility] [address] [place] [phone] Luis Fernando Rojas MD [address] [place] [address] 11/13/2023 9:40 AM EDT Office Visit Podiatry [facility] [address] [address] Calli Avila DPM [address] [place] [address] 12/02/2023 11:20 AM EDT [facility] [address] [place] [address] Kelsey Garcia DO [address] [place] [address] Scheduled Orders Name Type Priority Associated Diagnoses Orde r Schedule TSH WITH FREE T4 IF INDICATED Lab Routine Screening for thyroid disorder Expected: 09/19/2023, Expires: 08/21/2024 Scheduled Procedures Name Priority Associated Diagnoses Date/Ti [...] this encounter Medical Devices Implanted Type Area Education Administrative Assistant Device Identifier Shelf Expiration Date Model / Serial / Lot Coil Vortex 35 Pltinm [id number] - [id number] Implanted:Qty: 1 on 11/27/2021 by Sterling Cates MD [place] [facility] [place]: Upper Arm [employer] : NEURO INTR [id number] 05/16/2024 [id number] Azur 35 Detachable 5mm 11cm - [id number] Implanted:Qty: 1 on 03/19/2022 by Jose Devine MD [place] [facility] [place]: Wrist [employer] [id number] 06/19/2026 [id number] / / [id number] Mesh Flat Sheet 10x14 [id number] - [id number] Implanted:Qty: 1 on 12/11/2022 by Eros Dash MD [place] [facility] [place] N/A: Abdomen CR BARD : DAVOL [id number] 06/17/2027 [id number] / / [id number] documented as of this encounter Visit Diagnoses Diagnosis Screening for thyroid disorder- Primary documented in this encounter Advance Directives Documents on File Type Date Recorded Patient Thread Dresser Expl anation POLST 11/13/2020 POLST FLAKITOA VALERIA [...] the patient have Health Care Power of Cutter Operator Brick? No Full Code 01/28/2022 11:14 AM 01/28/2022 4:47 PM Full Code 05/22/2021 12:38 PM 05/22/2021 5:48 PM This order reflects the patients wishes and were consensually agreed upon. Question Answer Comments Discussion of Advance Directives occurred with: Not Discussed Does the patient have a Living Will? No Does the patient have Health Care Power of Cutter Operator Brick? No Healthcare Agents on File Name Relationship Healthcare Agent Relationshi p Communication Zhen Finley Spouse Health Care Agent Care Teams Surgical Scheduler Relationship Specialty Start Date End Date Luis Fernando Rojas MD [address] [place] [address] PCP - General Family Medicine 09/23/16 documented as of this encounter
--- OUTSIDE RECORDS SUMMARY | 2024-01-09 10:14 | External Medical Summary | Summary of Care ---
Author Name Unknown Organization [facility] Address [address] [place] [address] Phone [phone] Care Team Providers Care Occupational Health Nurse Manager Name Role Phone Luis Fernando Rojas MD Primary Care Provider [phone] Encounter Details Date Type Department Care Team (Late st Contact Info) Description 07/27/2023 Patient Reported Data Patient Survey Ortho [facility]BERD Allergies Active Allergy Reactions Criticality Noted Date Comments Salvador Inhibitors Other (Please comment) High 0 HyperKalemia documented as of this encounter (statuses as of 07/27/2023) Medications Medication Sig Dispensed Refills Start Date [...] 14 days (supplied through [facility]) 7 Each 3 05/17/2021 Active [...] hemoglobin A1c goal of less than 7.0% ([facility]) Inject 16 Units under the [...] Active Atorvastatin Calcium 40 MG Oral Tablet (Lipitor)Karolineo ns:Dyslipidemia, goal LDL below 100 TAKE ONE [...] 1,000 mcgIndications:S/P gastric bypass 1000 mcg IM [id number] 10/15/2022 07/19/2025 Active documented as of this encounter (statuses as of 07/27/2023) Active Problems Problem Noted Date Diagnosed Date [...] 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 10/15/2022 [facility] RESEARCH OTHER*[id number] 01/01/2022 S/P gastric bypass 01/01/2022 Marginal ulcer [...] Chronic Medication Regimen: Beta Ngoc Therapy: Carvedilol SALVADRO Inhibitor/ARB Therapy: Other: none on hd Diuretic [...] as of this encounter (statuses as of 07/27/2023) Resolved Problems Problem Noted Date Diagnosed Date [...] 10/08/2022 Insulin long-term use 11/19/20182018 Overview: Duplicate FPC (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 insulin 11/19/2018 10/08/2022 Morbid [...] T-tube placement 04/16/2017 05/29/2017 [employer] Other*[id number] 04/13/2013 08/27/2016 Overview: Study Title: Genomic Markers for Patients with Cardiovascular Disease Project # [id number] Dormitory Keeper: Siena Laws MD [phone] Hypertensive heart disease 03/25/2013 1 07/29/2016 Neuropathy, [...] as of this encounter (statuses as of 07/27/2023) Immunizations Name Administration Dates Next Due COVID-19 [...] Care Team (Late st Contact Info) Description 07/29/2023 9:10 AM EST Telemedicine Pharmacy, [place] [address] [address] [facility] [address] [address] 07/29/2023 12:30 PM EST Office Visit Gastroenterology, [facility] [address] [address] Emi Queen CRNP [address] [place] [address] 07/31/2023 10:40 AM EST Office Visit Podiatry [facility] [address] [place] [address] Calli Avila DPM [address] [place] [address] 08/04/2023 10:00 AM EST Scheduled Telephone [facility] [address] [address] Heidi Garcia, RN [address] [place] [address] 08/05/2023 8:40 AM EST Office Visit Sleep Disorders [facility] [address] [place] [phone] Kelsey Garcia, [address] [place] [address] 10/16/2023 11:40 AM EDT Office Visit [facility] [address] [phone] Luis Fernando Rojas MD [address], [place] [address] Scheduled Procedures Name Priority Associated Diagnoses Date/Ti [...] this encounter Medical Devices Implanted Type Area Straightener And Aligner Device Identifier Shelf Expiration Date Model / Serial / Lot Coil Vortex 35 Pltinm [id number] - [id number] Implanted:Qty: 1 on 11/27/2021 by Sterling Cates MD at OR [facility] [place] Right: Upper Arm [employer] : NEURO INTR [id number] 05/16/2024 [id number] / [id number] Azur 35 Detachable 5mm 11cm - [id number] Implanted:Qty: 1 on 03/19/2022 by Jose Devine MD at OR [facility] [place] Right: Wrist [employer] [id number] 06/19/2026 [id number] / / [id number] Mesh Flat Sheet 10x14 [id number] - [id number] Implanted:Qty: 1 on 12/11/2022 by Eros Dash MD at OR [facility] [place] N/A: Abdomen CR BARD : DAVOL [id number] 06/17/2027 [id number] / / [id number] documented as of this encounter Advance Directives Documents on File Type Date Recorded Patient Security Installer Expl anation POLST 11/13/2020 POLST [place] [...] the patient have Health Care Power of Technical Education Teacher? No Full Code 01/28/2022 11:14 AM 01/28/2022 4:47 PM Full Code 05/22/2021 12:38 PM 05/22/2021 5:48 PM This order reflects the patients wishes and were consensually agreed upon. Question Answer Comments Discussion of Advance Directives occurred with: Not Discussed Does the patient have a Living Will? No Does the patient have Health Care Power of Technical Education Teacher? No Healthcare Agents on File Name Relationship Healthcare Agent Relationshi p Communication Zhen Finley Spouse Health Care Agent Care Teams Occupational Health Nurse Manager Relationship Specialty Start Date End Date Luis Fernando Rojas MD [address] [place] [address] PCP - General Family Medicine 09/23/16 documented as of this encounter
--- OUTSIDE RECORDS SUMMARY | 2024-01-09 10:14 | External Medical Summary | Summary of Care ---
Author Name Unknown Organization [facility] Address [address] [place] [address] Phone [phone] Care Team Providers Care Energy Systems Laboratory Director Name Role Phone Luis Fernando Rojas MD Primary Care Provider [phone] Encounter Details Date Type Department Care Team [...] directed. 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 10/15/2022 [facility] RESEARCH OTHER*[id number] 01/01/2022 S/P gastric bypass 01/01/2022 Marginal ulcer [...] 10/08/2022 Insulin long-term use 11/19/20182018 Overview: Duplicate halfway (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 insulin 11/19/2018 10/08/2022 Morbid [...] T-tube placement 04/16/2017 05/29/2017 [employer] Other*[id number] 04/13/2013 08/27/2016 Overview: Study Title: Genomic Markers for Patients with Cardiovascular Disease Project # [id number] Tai Chi Instructor: Siena Laws MD [phone] Hypertensive heart disease 03/25/2013 1 07/29/2016 Neuropathy, [...] Description 07/29/2023 9:10 AM EST Telemedicine Pharmacy, [place] [address] [facility] [address] [facility] [address] [facility] [address] 07/29/2023 12:30 PM EST Office Visit Gastroenterology, [facility] [address] [address] Emi Queen CRNP [address] [place] [address] 07/31/2023 10:40 AM EST Office Visit Podiatry [facility] [address] [place] [address] Calli Avila DPM [address] [place] [address] 08/04/2023 10:00 AM EST Scheduled Telephone [facility] [address] [address] Heidi Garcia, RN [address] [place] [address] 08/05/2023 8:40 AM EST Office Visit [facility] C[facility] [address] [place] [phone] Kelsey Garcia, [address] [place] [address] 10/16/2023 11:40 AM EDT Office Visit [facility] [address] [facility] [phone] Luis Fernando Rojas MD [address], [place] [address] Scheduled Procedures Name Priority Associated Diagnoses Date/Ti [...] this encounter Medical Devices Implanted Type Area Revenue Settlements Administrator Device Identifier Shelf Expiration Date Model / Serial / Lot Coil Vortex 35 Pltinm [id number] - [id number] Implanted:Qty: 1 on 11/27/2021 by Sterling Cates MD at OR [facility] [place] Right: Upper Arm [employer] : NEURO INTR [id number] 05/16/2024 [id number] / [id number] Azur 35 Detachable 5mm 11cm - [id number] Implanted:Qty: 1 on 03/19/2022 by Jose Devine MD at OR [facility] [place] Right: Wrist [employer] [id number] 06/19/2026 [id number] / / [id number] Mesh Flat Sheet 10x14 [id number] - [id number] Implanted:Qty: 1 on 12/11/2022 by Eros Dash MD at OR [facility] [place] N/A: Abdomen CR BARD : DAVOL [id number] 06/17/2027 [id number] / / [id number] documented as of this encounter Advance Directives Documents on File Type Date Recorded Patient Television News Producer Expl anation POLST 11/13/2020 POLST PEN[place]VA VALERIA [...] the patient have Health Care Power of Ux Specialist? No Full Code 01/28/2022 11:14 AM 01/28/2022 4:47 PM Full Code 05/22/2021 12:38 PM 05/22/2021 5:48 PM This order reflects the patients wishes and were consensually agreed upon. Question Answer Comments Discussion of Advance Directives occurred with: Not Discussed Does the patient have a Living Will? No Does the patient have Health Care Power of Ux Specialist? No Healthcare Agents on File Name Relationship Healthcare Agent Relationshi p Communication Zhen Finley Spouse Health Care Agent Care Teams Energy Systems Laboratory Director Relationship Specialty Start Date End Date Luis Fernando Rojas MD [address] [place] [address] PCP - General Family Medicine 09/23/16 documented as of this encounter
[2024-01-09] MEDS: CITALOPRAM 20 MG TAB PO SCH (10:27)
[2024-01-09] MEDS: carvediloL 12.5 MG TAB PO SCH (10:28)
[2024-01-09] MEDS: amLODIPine BESYLATE 5 MG TAB PO SCH (10:29)
[2024-01-09] MEDS: CALCIUM ACETATE 667 MG CAP/TAB PO SCH (10:29)
[2024-01-09] MEDS: hydrALAZINE TAB 50 MG TAB PO SCH (10:30)
[2024-01-09] MEDS: LEVOTHYROXINE SODIUM 100 MCG TABLET PO SCH (10:31)
[2024-01-09] MEDS: DICLOFENAC SOD 1% GEL 100 GM TUBE EXT SCH (10:32)
[2024-01-09] MEDS: HYDROmorphone INJ 0.5 MG/0.5 ML SYR IV PRN (10:37)
--- NOTE | 2024-01-09 11:01 | Electrocardiogram Report ---
Test Reason : Blood Pressure : / mmHG Vent. Rate : 067 BPM Atrial Rate : 067 BPM P-R Int : 000 ms QRS Dur : 180 ms QT Int : 512 ms P-R-T Axes : 000 -48 036 degrees QTc Int : 541 ms AV dual-paced rhythm Abnormal ECG When compared with ECG of 06-NOV-2022 15:42, Previous ECG has undetermined rhythm, needs review Confirmed by Frank Saucedo ([id number]) on 01/09/2024 11:01:35 AM Referred By: REFERRED SELF Confirmed By:Frank Saucedo
--- NOTE | 2024-01-09 11:04 | Nephrology Consultation ---
Date of Consultation January 09, 2024 Assessment & Plan (1) ESRD (end stage renal disease) on dialysis: ESRD on MWF HD via AVF at [facility] Bbg; usually w/ high heparin dosing >> 2000 unit bolus and 1000 unit maintenance dose chemistries and volume status accepetable except for elevated BG and lower sodium and mild K elevation >> all likely related to glucose >HD today on 2 K bath > goal 1.5L UF; lower Na in bath >added 1.2 L FR to diet order >agree w/ continuing phos binders and renal vitamin >anemia at acceptable range > no iron or QUINCY w/ tx >next HD on 01/11 or as needs dictate History of Present Illness Reason for Consultation: ESRD missed treatment Requesting Physician: Dr Seaman Attending Physician: Álvaro Red MD History of Present Illness 63 y/o F whom I'm asked to see for ESRD care after she missed HD was admitted today for evaluation of traumatic R tibia fracture after she slipped in her camper. PMH includes ESRD on MWF HD via AVF at [facility] (Dr Hassan), paroxysmal atrial tach, HFpEF (EF 60 to 65%, TTE 2020), SSS status post pacer, MINISTERIO on CPAP, pulmonary hypertension, DM2 on insulin, hypothyroid, GERD, gastroparesis, history gastric bypass, endometrial cancer status post surgery, melanoma status post surgery, chronic anemia (baseline hemoglobin 9- 10), mood disorder. Ortho evaluated the patient > she is for nonoperative management though they plan to aspirate the knee. Her K was 5.3 w/ BG in 300s. She endorses significant right knee pain. Other no shortness of breath no nausea vomiting no chest pain no fever or chills. Denies any recent missed treatments. Allergies Allergy/AdvReac Type Severity Reaction Status Date / Time CHIDI Inhibitors AdvReac Mild COUGH Verified 02/21/23 10:02 Home Medications Medication Instructions Recorded Confirmed Type amlodipine 5 mg tablet 5 mg PO QAM 03/26/22 01/09/24 History aspirin 81 mg chewable tablet 81 mg PO HS 03/26/22 01/09/24 History atorvastatin 40 mg tablet 40 mg PO HS 03/26/22 01/09/24 History carvedilol 12.5 mg tablet 12.5 mg PO AMHS 03/26/22 01/09/24 History cholecalciferol (vitamin D3) 25 25 mcg PO PM 03/26/22 01/09/24 History mcg (1,000 unit) tablet (Vitamin D3) citalopram 40 mg tablet 20 mg PO QAM 03/26/22 01/09/24 History cyanocobalamin (vitamin B-12) 1,000 mcg IM Q90D 03/26/22 01/09/24 History 1,000 mcg/mL injection solution gabapentin 600 mg tablet 300 mg PO HS 03/26/22 01/09/24 History insulin glargine 100 unit/mL (3 16 unit subcut QAM 03/26/22 01/09/24 History mL) subcutaneous pen (Lantus Solostar U-100 Insulin) levothyroxine 100 mcg tablet 100 mcg PO QAM 03/26/22 01/09/24 History melatonin 10 mg tablet 10 mg PO HS 03/26/22 01/09/24 History omeprazole 40 mg capsule,delayed 20 mg PO PM 03/26/22 01/09/24 History release polyethylene glycol 3350 17 gram 17 g PO DAILY PRN Constipation 03/26/22 01/09/24 History oral powder packet vit B complx, C-iron 8 mg-folic 1 tab PO PM 03/26/22 01/09/24 History acid 800 mcg-D3 1,000 unit-zinc tablet (ProRenal) calcium acetate 667 mg tablet 2,001 mg PO TIDM 11/06/22 01/09/24 History hydralazine 100 mg tablet 100 mg PO TID 11/06/22 01/09/24 History RSV vac, preF A and preF B(PF) 120 01/09/24 01/09/24 History mcg/0.5 mL IM solution (Abrysvo) diclofenac sodium 1 % topical gel 2 g topical QID 01/09/24 01/09/24 History Patient History Medical History ESRD (end stage renal disease) on dialysis Peripheral neuropathy bilateral legs/feet Anxiety History of anesthesia reaction woke up during hysterectomy in 1995 Hiatal hernia Osteoarthritis Degenerative disc disease Chronic back pain Post traumatic stress disorder History of anesthesia reaction when had port inserted needed more medication and could feel everything GERD (gastroesophageal reflux disease) Surgical History History of colonoscopy S/P left knee arthroscopy S/P right knee arthroscopy H/O radical excision of skin lesion melanoma S/P cardiac pacemaker procedure medtronic device, last checked ~2 months ago[address] Follows with Dr Stevenson S/P arteriovenous (AV) fistula creation Right arm History of vitrectomy History of cataract surgery bilateral History of adenoidectomy History of tonsillectomy H/O umbilical hernia repair open (~November 2022 [facility]) --> went to [facility] for rehab therapy for about 2 weeks. S/P dialysis catheter insertion right side of chest (since removed) S/P JERSE[place]-BSO H/O hernia repair Hx of gastric bypass History of cholecystectomy Hx of cardiac cath "2012, negative for CAD " Family History Other Colonic polyp GERD (gastroesophageal reflux disease) No family history of adverse response to anesthesia Social History Smoking Status: Never smoker Second Hand Exposure: No; Do You Dip or Chew Tobacco: No; Hx Alcohol Use: No Hx Substance Use: No Preferred Language: Congolese Communication Ability: Effective Shell Trim Operator Required: No Beliefs That Will Affect Care: None marital status: Current Living Situation: Spouse Current Living Situation Comment: lives with Feels Safe at Home: Yes Safety Concerns: Feels Safe At This Time Assistive Devices: Walker Review of Systems 2 Review of Systems: All systems reviewed & are unremarkable except as noted in HPI & below Physical Exam 2 Constitutional: well developed, + obese, + frail appearing and cooperative; no acute distress Eyes: EOM intact bilaterally ENMT: Ears: no external ear abnormality Nose: no external nose abnormality Mouth: + dry oral mucous membranes Neck: no nuchal rigidity Respiratory: normal respiratory effort Auscultation: + diminished lung sounds Cardiovascular: Rate/Rhythm: regular rate and regular rhythm Extremities: + edema (Trace) and + AV fistula Gastrointestinal (Abdomen): Inspection/Auscultation: normal bowel sounds P ercussion/Palpation: abdomen soft; abdomen nontender Musculoskeletal: Extremities: + limited ROM of extremities (R knee braced/ iced) and strength 5/5 throughout Skin: no rashes, warm and dry Neurologic: yancey, fluent speech, no tremor Results & Data Vital Signs (Past 12 Hours) Vital Signs Temp Pulse Pulse Resp BP BP Pulse Ox 01/09/24 10:26 134/64 01/09/24 10:12 76 14 123/59 L 95 01/09/24 09:39 72 20 150/73 H 94 01/09/24 09:11 36.5 C 71 12 168/86 H 96 01/09/24 08:24 71 01/09/24 08:00 01/09/24 07:50 75 20 136/62 95 01/09/24 05:06 65 16 145/77 H 96 01/09/24 03:50 62 16 135/62 96 01/09/24 02:13 64 16 95 01/09/24 02:08 36.8 C 80 16 155/97 H 97 Pulse Ox O2 Del Method O2 Del Method 01/09/24 10:26 01/09/24 10:12 Room Air 01/09/24 09:39 Room Air 01/09/24 09:11 Room Air 01/09/24 08:24 01/09/24 08:00 96 Room Air 01/09/24 07:50 Room Air 01/09/24 05:06 Room Air 01/09/24 03:50 Room Air 01/09/24 02:13 Room Air 01/09/24 02:08 Room Air Laboratory Results 01/09/24 02:30 01/09/24 02:[address] 1. Right lateral tibial plateau fracture with minimal depression. Involves the lateral tibial spine. 2. Moderate lipohemarthrosis, partially visualized. cxr 1. Cardiomegaly and cardiac pacemaker without radiographic evidence of congestive failure. 2. No airspace consolidation or large pleural effusion is identified.
[2024-01-09] MEDS ORDERED: SODIUM CHLORIDE 0.9% 1,000 ML IV PRN (11:22)
[2024-01-09] MEDS: HEPARIN SOD 5,000 UNIT/0.5 ML VIAL SQ SCH (13:51)
[2024-01-09] MEDS: HEPARIN SOD (PORCINE) 1000 UNIT/ML IV ONE (15:52)
--- NOTE | 2024-01-09 17:37 | Dialysis Progress Note ---
Date of Service January 09, 2024 Assessment & Plan (1) ESRD (end stage renal disease) on dialysis: Plan: ESRD on MWF HD [place] [facility]; usually w/ high heparin dosing >> 2000 unit bolus and 1000 unit maintenance dose chemistries and volume status acceptable except for elevated BG and lower sodium and mild K elevation >> all likely related to glucose >HD today on 2 K bath > goal 1.5L UF; lower Na in bath >> generally patient tolerates 2 to 2.5 L UF at dialysis; however today we are scaling back UF target to approximately 1 L as tolerated. No fluid overload at least not dramatically so on exam > Continue 1.2 L FR >cont phos binders and renal vitamin >anemia at acceptable range > no iron or QUINCY w/ tx >next HD on 01/11 or as needs dictate >> monitor volume status over weekend w/ likely lower than expected UF today Admission and Anticipated Discharge Date Admission Date: January 09, 2024 Subjective Seen and evaluated on dialysis. Her systolic pressure dropped into the 60s about an hour into treatment for which she received 200 mL normal saline, dialysate temperature further reduced with improvement of blood pressure to 99 systolic. Chart review shows she had a dose of Dilaudid midmorning and a dose of oxycodone at 1400. Some malaise with change in blood pressure. No chills. No fever. Denies chest pain or shortness of breath. No nausea. Review of Systems Review of Systems: All systems reviewed & are unremarkable except as noted in Subjective Physical Exam Constitutional: well developed, + acute distress (Tells me she is feeling terrible with low BP), + ill appearing, + obese, + frail appearing and cooperative Eyes: EOM intact bilaterally ENMT: Ears: no external ear abnormality Nose: no external nose abnormality Mouth: + dry oral mucous membranes Neck: no nuchal rigidity Respiratory: normal respiratory effort Auscultation: + diminished lung sounds Cardiovascular: Rate/Rhythm: regular rate and regular rhythm Extremities: + edema (Trace) and + AV fistula Gastrointestinal (Abdomen): Inspection/Auscultation: normal bowel sounds Percussion/Palpation: abdomen soft; abdomen nontender Musculoskeletal: Extremities: + limited ROM of extremities (R knee braced/ iced) and strength 5/5 throughout Skin: no rashes, warm and dry Results & Data Vital Signs (Past 12 Hours) Vital Signs Temp Pulse Pulse Pulse Resp BP BP 01/09/24 17:00 74 113/62 01/09/24 16:30 60 102/55 L 01/09/24 16:15 76 108/55 L 01/09/24 16:00 61 84/42 L 01/09/24 15:38 62 99/57 L 01/09/24 15:30 63 65/48 L 01/09/24 15:00 62 102/63 01/09/24 14:46 66 106/53 L 01/09/24 14:39 36.5 C 62 01/09/24 14:17 01/09/24 13:41 64 01/09/24 13:34 36.6 C 63 16 102/51 L 01/09/24 12:12 64 16 122/85 01/09/24 11:06 76 14 119/55 L 01/09/24 10:45 72 14 137/64 01/09/24 10:26 134/64 01/09/24 10:12 76 14 123/59 L 01/09/24 09:39 72 20 150/73 H 01/09/24 09:11 36.5 C 71 12 168/86 H 01/09/24 08:24 71 01/09/24 08:00 01/09/24 07:50 75 20 136/62 Pulse Ox Pulse Ox O2 Del Method O2 Del Method 01/09/24 17:00 01/09/24 16:30 01/09/24 16:15 01/09/24 16:00 01/09/24 15:38 01/09/24 15:30 01/09/24 15:00 01/09/24 14:46 01/09/24 14:39 01/09/24 14:17 Room Air 01/09/24 13:41 01/09/24 13:34 96 Room Air 01/09/24 12:12 93 Room Air 01/09/24 11:06 92 Room Air 01/09/24 10:45 93 Room Air 01/09/24 10:26 01/09/24 10:12 95 Room Air 01/09/24 09:39 94 Room Air 01/09/24 09:11 96 Room Air 01/09/24 08:24 01/09/24 08:00 96 Room Air 01/09/24 07:50 95 Room Air Laboratory Results Reviewed earlier
[2024-01-09] MEDS: ACETAMINOPHEN 325 MG TAB PO PRN (18:44)
[2024-01-09] MEDS: PANTOprazole 40 MG TAB PO SCH (20:18)
[2024-01-09] MEDS: CHOLECALCIFEROL 25 MCG (1000 UNITS) TAB PO SCH (20:18)
[2024-01-09] MEDS: NEPHROCAPS PO SCH (20:18)
[2024-01-09] MEDS: ATORVASTATIN 40 MG TAB PO SCH (20:18)
[2024-01-09] MEDS: ASPIRIN 81 MG ECTAB PO SCH (20:19)
[2024-01-09] MEDS: GABAPENTIN 600 MG TAB PO SCH (20:19)
[2024-01-09] MEDS: MELATONIN 3 MG TAB PO SCH (20:24)
[2024-01-10 06:27] LABS: Basophils # (auto) 0.08 K/uL (0.00-0.20); Basophils % (auto) 0.8 %; Eosinophils # (auto) 0.18 K/uL (0.00-0.50); Eosinophils % (auto) 1.9 %; Hematocrit (blood only) 33.1 % (37.0-47.0); Hemoglobin 10.3 g/dl (12.0-16.0); Immature Granulocytes # (auto) 0.03 K/uL (0.01-0.20); Immature Granulocytes % (auto) 0.3 %; Lymphocytes # (auto) 2.31 K/uL (1.20-3.40); Mean Corpuscular Hemoglobin 30.4 pg (25.0-34.0); Mean Corpuscular Hgb Conc 31.1 g/dL (32.0-36.0); Mean Corpuscular Volume 97.6 fL (80.0-100.0); Monocytes # (auto) 0.97 K/uL (0.11-0.59); Monocytes % (auto) 10.1 %; Neutrophils # (auto) 6.04 K/uL (1.40-6.50); Neutrophils % (auto) 62.9 %; Platelet Count 201 K/uL (130-400); RDW Coefficient of Variation 15.3 % (11.5-14.5); RDW Standard Deviation 54.4 fL (36.4-46.3); Red Blood Count 3.39 M/uL (4.20-5.40); White Blood Count 9.61 K/ul (4.8-10.8)
[2024-01-10 06:39] LABS: BUN Creatinine Ratio 6.2 (10-20); Calcium 9.4 mg/dl (8.6-10.3); Creatinine Clr Calc Pharmacy 13.9 ml/min; Est GFR (African American) 10.6 ml/min; Est GFR (Non-African American) 9.1 ml/min; Magnesium 2.1 mg/dl (1.7-2.4); Phosphorus 5.3 mg/dl (2.5-4.9); Potassium 4.9 mmol/L (3.5-5.1)
[2024-01-10] MEDS ORDERED: LANTUS PER UNIT CHARGE SQ SCH (09:00)
--- NOTE | 2024-01-10 10:23 | Hospitalist Progress Note ---
Date of Service January 10, 2024 Assessment & Plan (1) Hyperkalemia: Plan: History ESRD on HD Medical telemetry Bicarb 1 dose given on admission for hyperkalemia Nephrology consult Re: Dialysis management Pt had HD yesterday (01/08), next one is planned for 01/11 Traumatic right tibia fracture s/p mechanical fall Orthopedics consult Re: Right tibia fracture - Recommend nonoperative management with knee immobilizer to right leg, nonweight bearing, and can follow up with orthopedics as outpatient in 2 weeks. I offered to aspirate her knee today and she would like to proceed with that. Procedure note: Right knee sterilely prepped with alcohol and using aseptic technique 50ml of blood was aspirated from her knee. She tolerated the procedure well. No complications. 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 Heparin subcu Full code Patient - Mr. Zhen Finley, contact #[phone]. Admission and Anticipated Discharge Date Admission Date: January 09, 2024 Subjective Pt seen in follow up of tibial fx, hx of ESRD on HD had a mechanical fall had HD yesterday - hypotensive on HD Seen by orthopedics yesterday as well - no surg. treatment , left knee was tapped - 50 mL of blood Currently laying in bed in NAD No fever, chills, chest pain or shortness of breath. No abd. pain. Reports R leg pain Review of Systems Review of Systems: All systems reviewed & are unremarkable except as noted in Subjective Physical Exam Physical Exam: GENERAL: morbidly obese F in NAD HEENT: NC/AT. NECK : Supple, short neck CHEST : CTA, no tenderness HEART : RRR, no obvious murmurs ABDOMEN: Some distention, nontender EXTREMITIES : Tender RLE swelling NEUROLOGIC : Coherent, no facial asymmetry, no other gross focality SKIN: warm, dry Results & Data Results & Data Vital Signs (Past 12 Hours) Vital Signs Temp Pulse Pulse Resp BP Pulse Ox O2 Del Method 01/10/24 07:12 37 C 74 20 147/72 H 91 Room Air 01/10/24 03:09 36.6 C 77 18 93/47 L 91 Room Air 01/09/24 23:23 36.7 C 65 18 107/67 93 Room Air Laboratory Results 01/10/24 01/10/24 01/09/24 Range/Units 08:17 05:56 20:26 WBC 9.61 (4.8-10.8) K/ul RBC 3.39 L (4.20-5.40) M/uL Hgb 10.3 L (12.0-16.0) g/dl Hct 33.1 L (37.0-47.0) % MCV 97.6 (80.0-100.0) fL MCH 30.4 (25.0-34.0) pg MCHC 31.1 L (32.0-36.0) g/dL RDW Std Deviation 54.4 H (36.4-46.3) fL RDW Coeff of Leatha 15.3 H (11.5-14.5) % Plt Count 201 (130-400) K/uL MPV 10.0 (9.4-12.4) fL Immature Gran % (Auto) 0.3 % Neut % (Auto) 62.9 % Lymph % (Auto) 24.0 % [place] % (Auto) 10.1 % Eos % (Auto) 1.9 % Baso % (Auto) 0.8 % Neut # (Auto) 6.04 (1.40-6.50) K/uL Lymph # (Auto) 2.31 (1.20-3.40) K/uL [place] # (Auto) 0.97 H (0.11-0.59) K/uL Eos # (Auto) 0.18 (0.00-0.50) K/uL Baso # (Auto) 0.08 (0.00-0.20) K/uL Immature Gran # (Auto) 0.03 (0.01-0.20) K/uL Sodium 132 L (136-145) mmol/L Potassium 4.9 (3.5-5.1) mmol/L Chloride 96 L (98-107) mmol/L Carbon Dioxide 27 (21-32) mmol/L Anion Gap 9 (3-11) BUN 29 H (6-23) mg/dl Creatinine 4.68 H* D (0.6-1.2) mg/dl Est Cr Clr Drug Dosing 13.9 ml/min Est GFR ( Amer) 10.6 ml/min Est GFR (Non-Af Amer) 9.1 ml/min BUN/Creatinine Ratio 6.2 L (10-20) Glucose 181 H (70-99(Fasting)) mg/dl POC Glucose 166 H 135 H (70-99) mg/dl Calcium 9.4 (8.6-10.3) mg/dl Phosphorus 5.3 H (2.5-4.9) mg/dl Magnesium 2.1 (1.7-2.4) mg/dl 01/09/24 01/09/24 Range/Units 18:39 12:37 WBC (4.8-10.8) K/ul RBC (4.20-5.40) M/uL Hgb (12.0-16.0) g/dl Hct (37.0-47.0) % MCV (80.0-100.0) fL MCH (25.0-34.0) pg MCHC (32.0-36.0) g/dL RDW Std Deviation (36.4-46.3) fL RDW Coeff of Leatha (11.5-14.5) % Plt Count (130-400) K/uL MPV (9.4-12.4) fL Immature Gran % (Auto) % Neut % (Auto) % Lymph % (Auto) % [place] % (Auto) % Eos % (Auto) % Baso % (Auto) % Neut # (Auto) (1.40-6.50) K/uL Lymph # (Auto) (1.20-3.40) K/uL [place] # (Auto) (0.11-0.59) K/uL Eos # (Auto) (0.00-0.50) K/uL Baso # (Auto) (0.00-0.20) K/uL Immature Gran # (Auto) (0.01-0.20) K/uL Sodium (136-145) mmol/L Potassium (3.5-5.1) mmol/L Chloride (98-107) mmol/L Carbon Dioxide (21-32) mmol/L Anion Gap (3-11) BUN (6-23) mg/dl Creatinine (0.6-1.2) mg/dl Est Cr Clr Drug Dosing ml/min Est GFR ( Amer) ml/min Est GFR (Non-Af Amer) ml/min BUN/Creatinine Ratio (10-20) Glucose (70-99(Fasting)) mg/dl POC Glucose 84 204 H (70-99) mg/dl Calcium (8.6-10.3) mg/dl Phosphorus (2.5-4.9) mg/dl Magnesium (1.7-2.4) mg/dl Medications Administered Current Inpatient Medications Acetaminophen (Acetaminophen 325 Mg Tab) 650 mg PO QID PRN PRN Reason: pain/fever Stop: 02/08/24 04:49 Last Admin: 01/10/24 08:36 Dose: 650 mg Amlodipine Besylate (Amlodipine Besylate 5 Mg Tab) [facility] [place] Stop: 02/08/24 08:59 Last Admin: 01/10/24 08:37 Dose: 5 mg Aspirin (Aspirin 81 Mg Ectab) 81 mg PO [facility] Stop: 02/08/24 20:59 Last Admin: 01/09/24 20:19 Dose: 81 mg Atorvastatin Calcium (Atorvastatin 40 Mg Tab) 40 mg PO HS [facility] Stop: 02/08/24 20:59 Last Admin: 01/09/24 20:18 Dose: 40 mg Calcium Acetate (Calcium Acetate 667 Mg Cap/Tab) 2,001 mg PO TIDM [facility] Stop: 02/08/24 07:59 Last Admin: 01/10/24 08:38 Dose: 2,001 mg Carvedilol (Carvedilol 12.5 Mg Tab) 12.5 mg PO BIDM [facility] Stop: 02/08/24 07:59 Last Admin: 01/10/24 08:37 Dose: 12.5 mg Citalopram Hydrobromide (Citalopram 20 Mg Tab) 20 mg PO QAM [facility] Stop: 02/08/24 08:59 Last Admin: 01/10/24 08:37 Dose: 20 mg Dextrose (Dextrose 50% 50 Ml Syringe) 25 - 50 ml IV UD PRN; Protocol PRN Reason: Hypoglycemia Protocol Stop: 02/08/24 04:46 Diclofenac Sodium (Diclofenac Sod 1% Gel 100 Gm Tube) 2 gm EXT QID [facility]; Protocol Stop: 02/08/24 08:59 Last Admin: 01/09/24 20:20 Dose: 2 gm Gabapentin (Gabapentin 600 Mg Tab) 300 mg PO HS [facility] Stop: 02/08/24 20:59 Last Admin: 01/09/24 20:19 Dose: 300 mg Glucagon (Glucagon For Inj 1 Mg Vial) 1 mg SQ UD PRN; Protocol PRN Reason: Hypoglycemia Protocol Stop: 02/08/24 04:46 Glucose (Glucose 40% Gel 15 Gm Tube) 15 - 30 gm PO UD PRN; Protocol PRN Reason: Hypoglycemia Protocol Stop: 02/08/24 04:46 Glucose (Glucose 10 Tab/Tube) 4 - 8 tab PO UD PRN; Protocol PRN Reason: Hypoglycemia Treatment Stop: 02/08/24 04:46 Heparin Sodium (Porcine) (Heparin Sod 5,000 Unit/0.5 Ml Vial) 5,000 units SQ Q8 [facility] Stop: 02/08/24 13:59 Last Admin: 01/10/24 05:40 Dose: 5,000 units Hydralazine HCl (Hydralazine Tab 50 Mg Tab) 100 mg PO TID [facility] Stop: 02/08/24 08:59 Last Admin: 01/10/24 08:37 Dose: 100 mg Hydromorphone HCl (Hydromorphone Inj 0.5 Mg/0.5 Ml Syr) 0.5 mg IV Q6H PRN PRN Reason: Pain Stop: 01/23/24 04:48 Last Admin: 01/10/24 08:18 Dose: 0.5 mg Promethazine HCl 12.5 mg/ (Sodium Chloride) 50.5 mls @ 202 mls/hr IV Q6H PRN PRN Reason: Nausea And Vomiting Stop: 02/08/24 04:48 Insulin Aspart (Insulin Aspart Per Unit Charge) 0 units SC ACHS [facility] Stop: 02/08/24 04:49 Last Admin: 01/10/24 08:44 Dose: 2 units Insulin Glargine (Lantus Per Unit Charge) 15 units SQ QAM [facility] Stop: 02/09/24 08:59 Levothyroxine Sodium (Levothyroxine Sodium 100 Mcg Tablet) 100 mcg PO DAILYBB [facility] Stop: 02/08/24 08:14 Last Admin: 01/10/24 05:39 Dose: 100 mcg Melatonin (Melatonin 3 Mg Tab) 9 mg PO HS [facility] Stop: 02/08/24 20:59 Last Admin: 01/09/24 20:24 Dose: 9 mg Miscellaneous (Carbohydrates For Hypoglycemia ) 15 - 30 gm PO UD PRN PRN Reason: Hypoglycemia Protocol Stop: 02/08/24 04:46 Oxycodone HCl (Oxycodone Hcl Ir 5 Mg Tab (Immediate Release)) 5 - 10 mg PO QID PRN PRN Reason: Pain Stop: 01/23/24 04:48 Last Admin: 01/10/24 05:39 Dose: 10 mg Pantoprazole Sodium (Pantoprazole 40 Mg Tab) 40 mg PO PM [facility] Stop: 02/08/24 20:59 Last Admin: 01/09/24 20:18 Dose: 40 mg Polyethylene Glycol (Polyethylene (Miralax) 17 Gm Pack) 17 gm PO DAILY PRN PRN Reason: Constipation Stop: 02/08/24 06:45 Vitamin B Complex/Folic Acid (Nephrocaps) 1 cap PO PM [facility] Stop: 02/08/24 20:59 Last Admin: 01/09/24 20:18 Dose: 1 cap Vitamin D (Cholecalciferol 25 Mcg (1000 Units) Tab) 25 mcg PO PM [facility] Stop: 02/08/24 20:59 Last Admin: 01/09/24 20:18 Dose: 25 mcg
[2024-01-10] MEDS: PROMETHAZINE HCL 12.5 MG in SODIUM CHLORIDE 0.9% 50 ML IV PRN (11:05)
[2024-01-10] MEDS: LANTUS PER UNIT CHARGE SQ SCH (11:12)
[2024-01-10] MEDS: SENNA 8.6 MG TAB PO SCH (13:51)
[2024-01-10] MEDS: POLYETHYLENE (MIRALAX) 17 GM PACK PO SCH (13:51)
[2024-01-11 06:55] LABS: Hematocrit (blood only) 33.1 % (37.0-47.0); Hemoglobin 10.3 g/dl (12.0-16.0); Mean Corpuscular Hemoglobin 30.2 pg (25.0-34.0); Mean Corpuscular Hgb Conc 31.1 g/dL (32.0-36.0); Mean Corpuscular Volume 97.1 fL (80.0-100.0); Mean Platelet Volume 9.8 fL (9.4-12.4); Platelet Count 198 K/uL (130-400); RDW Coefficient of Variation 15.5 % (11.5-14.5); RDW Standard Deviation 55.1 fL (36.4-46.3); Red Blood Count 3.41 M/uL (4.20-5.40); White Blood Count 10.91 K/ul (4.8-10.8)
[2024-01-11 07:15] LABS: BUN Creatinine Ratio 7.5 (10-20); Calcium 9.8 mg/dl (8.6-10.3); Creatinine Clr Calc Pharmacy 10.4 ml/min; Est GFR (African American) 7.4 ml/min; Est GFR (Non-African American) 6.4 ml/min; Magnesium 2.3 mg/dl (1.7-2.4); Potassium 5.4 mmol/L (3.5-5.1)
[2024-01-11] MEDS: POLYETHYLENE (MIRALAX) 17 GM PACK PO ONE (18:10)
[2024-01-12 06:17] LABS: Hematocrit (blood only) 28.3 % (37.0-47.0); Mean Corpuscular Hemoglobin 30.4 pg (25.0-34.0); Mean Corpuscular Hgb Conc 31.8 g/dL (32.0-36.0); Mean Corpuscular Volume 95.6 fL (80.0-100.0); Mean Platelet Volume 10.4 fL (9.4-12.4); Platelet Count 184 K/uL (130-400); RDW Coefficient of Variation 15.3 % (11.5-14.5); RDW Standard Deviation 53.7 fL (36.4-46.3); Red Blood Count 2.96 M/uL (4.20-5.40); White Blood Count 10.87 K/ul (4.8-10.8)
[2024-01-12 06:35] LABS: BUN Creatinine Ratio 7.7 (10-20); Calcium 9.1 mg/dl (8.6-10.3); Creatinine Clr Calc Pharmacy 7.8 ml/min; Est GFR (African American) 5.2 ml/min; Est GFR (Non-African American) 4.5 ml/min; Magnesium 2.3 mg/dl (1.7-2.4); Phosphorus 6.6 mg/dl (2.5-4.9); Potassium 5.8 mmol/L (3.5-5.1)
[2024-01-12] MEDS ORDERED: SODIUM CHLORIDE 0.9% 1,000 ML IV PRN (07:00)
--- NOTE | 2024-01-12 09:07 | Hospitalist Progress Note ---
Date of Service January 11, 2024 Assessment & Plan (1) Hyperkalemia: Plan: History ESRD on HD Medical telemetry Bicarb 1 dose given on admission for hyperkalemia Nephrology consult Re: Dialysis management Pt had HD (01/08), next one is planned for tmrw 01/11 Traumatic right tibia fracture s/p mechanical fall Orthopedics consult Re: Right tibia fracture - Recommend nonoperative management with knee immobilizer to right leg, nonweight bearing, and can follow up with orthopedics as outpatient in 2 weeks. I offered to aspirate her knee today and she would like to proceed with that. Procedure note: Right knee sterilely prepped with alcohol and using aseptic technique 50ml of blood was aspirated from her knee. She tolerated the procedure well. No complications. 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 Heparin subcu Full code Patient - Mr. Zhen Finley, contact #[phone]. Admission and Anticipated Discharge Date Admission Date: January 09, 2024 Subjective Pt seen in follow up of tibial fx, hx of ESRD on HD had a mechanical fall Seen by orthopedics - no surg. treatment , left knee was tapped - 50 mL of blood Currently laying in bed in NAD No fever, chills, chest pain or shortness of breath. No abd. pain. Reports R leg pain w/ movement Review of Systems Review of Systems: All systems reviewed & are unremarkable except as noted in Subjective Physical Exam Physical Exam: GENERAL: morbidly obese F in NAD HEENT: NC/AT. NECK : Supple, short neck CHEST : CTA, no tenderness HEART : RRR, no obvious murmurs ABDOMEN: Some distention, nontender EXTREMITIES : Tender RLE swelling NEUROLOGIC : Coherent, no facial asymmetry, no other gross focality SKIN: warm, dry Results & Data Results & Data Vital Signs (Past 12 Hours) Vital Signs Temp Pulse Pulse Resp BP Pulse Ox O2 Del Method 01/11/24 22:33 37.1 C 76 18 101/63 93 Room Air 01/11/24 21:54 72
--- NOTE | 2024-01-12 16:36 | Dialysis Progress Note ---
Date of Service January 12, 2024 Assessment & Plan (1) ESRD (end stage renal disease) on dialysis: Plan: ESRD on MWF HD via AVF at [facility] [place] [facility]; usually w/ high heparin dosing >> 2000 unit bolus and 1000 unit maintenance dose chemistries and volume status acceptable except for lower sodium and moderate K elevation >>>will plan extra treatment tomorrow given lower than planned UF both txs and ongoing hyponatremia (sign of vol OL here) >HD today on 2 K bath > goal 2L UF >> generally patient tolerates 2 to 2.5 L UF at dialysis > Continue 1.2 L FR >cont phos binders and renal vitamin >anemia at acceptable range > no iron or QUINCY w/ tx >next HD on 01/12 or as needs dictate to help with weakness/ensure no vol OL Care coordinated w/ Dr Red re HTN meds, extra dialysis tx. (2) Hypotension of hemodialysis: Plan: UF limited now x 2 txs by hypotension > ? from pain meds or other. pt on many antihypertensives. also too weak to get OOB and lower BP won't help this. BP off HD labile but on lower side including ON >lowered hydralazine to 50 mg bid and stopped amlodipine -extra tx as above Admission and Anticipated Discharge Date Admission Date: January 09, 2024 Subjective seen on HD. no uncontrolled pain. no N or sob. working at getting OOB on her own; unable to do it yesterday d/t weakness. BP low/drops at times on tx Review of Systems 2 Review of Systems: All systems reviewed & are unremarkable except as noted in Subjective Physical Exam 2 Constitutional: well developed, + obese, + frail appearing and cooperative; no acute distress Eyes: EOM intact bilaterally ENMT: Ears: no external ear abnormality Nose: no external nose abnormality Mouth: + dry oral mucous membranes Neck: no nuchal rigidity Respiratory: normal respiratory effort Auscultation: + diminished lung sounds Cardiovascular: Rate/Rhythm: regular rate and regular rhythm Extremities: + edema (Trace) and + AV fistula Gastrointestinal (Abdomen): Inspection/Auscultation: normal bowel sounds P ercussion/Palpation: abdomen soft; abdomen nontender Musculoskeletal: Extremities: + limited ROM of extremities (R knee braced) and strength 5/5 throughout Skin: no rashes, warm and dry Results & Data Vital Signs (Past 12 Hours) Vital Signs Temp Pulse Pulse Pulse Resp BP BP 01/12/24 16:20 74 01/12/24 15:29 37.1 C 74 16 113/50 L 01/12/24 13:32 36.5 C 82 115/59 L 01/12/24 13:00 68 98/46 L 01/12/24 12:30 66 96/40 L 01/12/24 12:00 70 111/59 L 01/12/24 11:30 70 153/65 H 01/12/24 11:15 80 121/58 L 01/12/24 11:00 67 93/68 L 01/12/24 10:30 64 96/53 L 01/12/24 10:00 68 105/52 L 01/12/24 09:33 60 116/50 L 01/12/24 09:24 36.9 C 73 01/12/24 07:45 36.9 C 66 16 111/64 Pulse Ox O2 Del Method 01/12/24 16:20 01/12/24 15:29 90 Room Air 01/12/24 13:32 01/12/24 13:00 01/12/24 12:30 01/12/24 12:00 01/12/24 11:30 01/12/24 11:15 01/12/24 11:00 01/12/24 10:30 01/12/24 10:00 01/12/24 09:33 01/12/24 09:24 01/12/24 07:45 96 Room Air Laboratory Results 01/12/24 05:25 01/12/24 05:25
--- NOTE | 2024-01-12 17:48 | Hospitalist Progress Note ---
Date of Service January 12, 2024 Assessment & Plan (1) Hyperkalemia: Plan: History ESRD on HD Medical telemetry Bicarb 1 dose given on admission for hyperkalemia Nephrology consult Re: Dialysis management Pt had HD (01/08), next one today - 01/11 Pt hypotensive on HD - plan for another HD tmrw (01/12) - also per nephrology - lowered hydralazine to 50 mg bid and stopped amlodipine Traumatic right tibia fracture s/p mechanical fall Orthopedics consult Re: Right tibia fracture - Recommend nonoperative management with knee immobilizer to right leg, nonweight bearing, and can follow up with orthopedics as outpatient in 2 weeks. I offered to aspirate her knee today and she would like to proceed with that. Procedure note: Right knee sterilely prepped with alcohol and using aseptic technique 50ml of blood was aspirated from her knee. She tolerated the procedure well. No complications. 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 Heparin subcu Full code Patient - Mr. Zhen Finley, contact #[phone]. Admission and Anticipated Discharge Date Admission Date: January 09, 2024 Subjective Pt seen in follow up of tibial fx, hx of ESRD on HD had a mechanical fall Seen by orthopedics - no surg. treatment , left knee was tapped - 50 mL of blood Currently laying in bed in NAD No fever, chills, chest pain or shortness of breath. No abd. pain. Reports R leg pain w/ movement Review of Systems Review of Systems: All systems reviewed & are unremarkable except as noted in Subjective Physical Exam Physical Exam: GENERAL: morbidly obese F in NAD HEENT: NC/AT. NECK : Supple, short neck CHEST : CTA, no tenderness HEART : RRR, no obvious murmurs ABDOMEN: Some distention, nontender EXTREMITIES : Tender RLE swelling NEUROLOGIC : Coherent, no facial asymmetry, no other gross focality SKIN: warm, dry Results & Data Results & Data Vital Signs (Past 12 Hours) Vital Signs Temp Pulse Pulse Pulse Resp BP BP 01/12/24 16:20 74 01/12/24 15:29 37.1 C 74 16 113/50 L 01/12/24 13:32 36.5 C 82 115/59 L 01/12/24 13:00 68 98/46 L 01/12/24 12:30 66 96/40 L 01/12/24 12:00 70 111/59 L 01/12/24 11:30 70 153/65 H 01/12/24 11:15 80 121/58 L 01/12/24 11:00 67 93/68 L 01/12/24 10:30 64 96/53 L 01/12/24 10:00 68 105/52 L 01/12/24 09:33 60 116/50 L 01/12/24 09:24 36.9 C 73 01/12/24 08:00 01/12/24 07:45 36.9 C 66 16 111/64 Pulse Ox O2 Del Method 01/12/24 16:20 01/12/24 15:29 90 Room Air 01/12/24 13:32 01/12/24 13:00 01/12/24 12:30 01/12/24 12:00 01/12/24 11:30 01/12/24 11:15 01/12/24 11:00 01/12/24 10:30 01/12/24 10:00 01/12/24 09:33 01/12/24 09:24 01/12/24 08:00 Room Air 01/12/24 07:45 96 Room Air Laboratory Results 01/12/24 01/12/24 01/12/24 Range/Units 17:12 13:45 08:16 WBC (4.8-10.8) K/ul RBC (4.20-5.40) M/uL Hgb (12.0-16.0) g/dl Hct (37.0-47.0) % MCV (80.0-100.0) fL MCH (25.0-34.0) pg MCHC (32.0-36.0) g/dL RDW Std Deviation (36.4-46.3) fL RDW Coeff of Leatha (11.5-14.5) % Plt Count (130-400) K/uL MPV (9.4-12.4) fL Sodium (136-145) mmol/L Potassium (3.5-5.1) mmol/L Chloride (98-107) mmol/L Carbon Dioxide (21-32) mmol/L Anion Gap (3-11) BUN (6-23) mg/dl Creatinine (0.6-1.2) mg/dl Est Cr Clr Drug Dosing ml/min Est GFR ( Amer) ml/min Est GFR (Non-Af Amer) ml/min BUN/Creatinine Ratio (10-20) Glucose (70-99(Fasting)) mg/dl POC Glucose 102 H 89 134 H (70-99) mg/dl Calcium (8.6-10.3) mg/dl Phosphorus (2.5-4.9) mg/dl Magnesium (1.7-2.4) mg/dl 01/12/24 01/11/24 Range/Units 05:25 20:03 WBC 10.87 H (4.8-10.8) K/ul RBC 2.96 L (4.20-5.40) M/uL Hgb 9.0 L (12.0-16.0) g/dl Hct 28.3 L (37.0-47.0) % MCV 95.6 (80.0-100.0) fL MCH 30.4 (25.0-34.0) pg MCHC 31.8 L (32.0-36.0) g/dL RDW Std Deviation 53.7 H (36.4-46.3) fL RDW Coeff of Leatha 15.3 H (11.5-14.5) % Plt Count 184 (130-400) K/uL MPV 10.4 (9.4-12.4) fL Sodium 127 L (136-145) mmol/L Potassium 5.8 H (3.5-5.1) mmol/L Chloride 91 L (98-107) mmol/L Carbon Dioxide 23 (21-32) mmol/L Anion Gap 13 H (3-11) BUN 65 H (6-23) mg/dl Creatinine 8.43 H* D (0.6-1.2) mg/dl Est Cr Clr Drug Dosing 7.8 ml/min Est GFR ( Amer) 5.2 ml/min Est GFR (Non-Af Amer) 4.5 ml/min BUN/Creatinine Ratio 7.7 L (10-20) Glucose 110 H (70-99(Fasting)) mg/dl POC Glucose 210 H (70-99) mg/dl Calcium 9.1 (8.6-10.3) mg/dl Phosphorus 6.6 H (2.5-4.9) mg/dl Magnesium 2.3 (1.7-2.4) mg/dl Medications Administered Current Inpatient Medications Acetaminophen (Acetaminophen 325 Mg Tab) 650 mg PO QID PRN PRN Reason: pain/fever Stop: 02/08/24 04:49 Last Admin: 01/12/24 05:46 Dose: 650 mg Amlodipine Besylate (Amlodipine Besylate 5 Mg Tab) [facility] Stop: 02/08/24 08:59 Last Admin: 01/12/24 10:36 Dose: Not Given Aspirin (Aspirin 81 Mg Ectab) 81 mg PO [facility] Stop: 02/08/24 20:59 Last Admin: 01/11/24 20:14 Dose: 81 mg Atorvastatin Calcium (Atorvastatin 40 Mg Tab) 40 mg PO [facility] Stop: 02/08/24 20:59 Last Admin: 01/11/24 20:14 Dose: 40 mg Calcium Acetate (Calcium Acetate 667 Mg Cap/Tab) 2,001 mg PO TIDM [facility] Stop: 02/08/24 07:59 Last Admin: 01/12/24 14:25 Dose: 2,001 mg Carvedilol (Carvedilol 12.5 Mg Tab) 12.5 mg PO BIDM [facility] Stop: 02/08/24 07:59 Last Admin: 01/12/24 08:56 Dose: Not Given Citalopram Hydrobromide (Citalopram 20 Mg Tab) [facility] Stop: 02/08/24 08:59 Last Admin: 01/12/24 08:47 Dose: 20 mg Dextrose (Dextrose 50% 50 Ml Syringe) 25 - 50 ml IV UD PRN; Protocol PRN Reason: Hypoglycemia Protocol Stop: 02/08/24 04:46 Diclofenac Sodium (Diclofenac Sod 1% Gel 100 Gm Tube) 2 gm EXT QID [facility]; Protocol Stop: 02/08/24 08:59 Last Admin: 01/12/24 14:29 Dose: 2 gm Gabapentin (Gabapentin 600 Mg Tab) 300 mg PO HS [facility] Stop: 02/08/24 20:59 Last Admin: 01/11/24 20:14 Dose: 300 mg Glucagon (Glucagon For Inj 1 Mg Vial) 1 mg SQ UD PRN; Protocol PRN Reason: Hypoglycemia Protocol Stop: 02/08/24 04:46 Glucose (Glucose 40% Gel 15 Gm Tube) 15 - 30 gm PO UD PRN; Protocol PRN Reason: Hypoglycemia Protocol Stop: 02/08/24 04:46 Glucose (Glucose 10 Tab/Tube) 4 - 8 tab PO UD PRN; Protocol PRN Reason: Hypoglycemia Treatment Stop: 02/08/24 04:46 Heparin Sodium (Porcine) (Heparin Sod 5,000 Unit/0.5 Ml Vial) 5,000 units SQ Q8 [facility] Stop: 02/08/24 13:59 Last Admin: 01/12/24 16:10 Dose: Not Given Heparin Sodium (Porcine) (Heparin Sod (Porcine) 1000 Unit/Ml) 2,000 units IV ONE ONE Stop: 01/13/24 07:01 Heparin Sodium (Porcine) (Heparin Sod (Porcine) 1000 Unit/Ml) 600 units IV Q1H [facility] Stop: 01/13/24 09:01 Hydralazine HCl (Hydralazine Tab 50 Mg Tab) 50 mg PO BID [facility] Stop: 02/11/24 20:59 Hydromorphone HCl (Hydromorphone Inj 0.5 Mg/0.5 Ml Syr) 0.5 mg IV Q6H PRN PRN Reason: Pain Stop: 01/23/24 04:48 Last Admin: 01/12/24 14:35 Dose: 0.5 mg Promethazine HCl 12.5 mg/ (Sodium Chloride) 50.5 mls @ 202 mls/hr IV Q6H PRN PRN Reason: Nausea And Vomiting Stop: 02/08/24 04:48 Last Infusion: 01/10/24 19:04 Dose: Infused Sodium Chloride (Nss) 1,000 mls @ 0 mls/hr IV .Q0M PRN PRN Reason: For Hemodialysis Use ONLY Stop: 01/13/24 12:59 Insulin Aspart (Insulin Aspart Per Unit Charge) 0 units SC ACHS [facility] Stop: 02/08/24 04:49 Last Admin: 01/12/24 14:28 Dose: 2 units Insulin Glargine (Lantus Per Unit Charge) 15 units SQ QAM [facility] Stop: 02/09/24 08:59 Last Admin: 01/12/24 08:54 Dose: 15 units Levothyroxine Sodium (Levothyroxine Sodium 100 Mcg Tablet) 100 mcg PO DAILYBB [facility] Stop: 02/08/24 08:14 Last Admin: 01/12/24 05:31 Dose: 100 mcg Melatonin (Melatonin 3 Mg Tab) 9 mg PO HS [facility] Stop: 02/08/24 20:59 Last Admin: 01/11/24 20:16 Dose: 9 mg Miscellaneous (Carbohydrates For Hypoglycemia ) 15 - 30 gm PO UD PRN PRN Reason: Hypoglycemia Protocol Stop: 02/08/24 04:46 Oxycodone HCl (Oxycodone Hcl Ir 5 Mg Tab (Immediate Release)) 5 - 10 mg PO QID PRN PRN Reason: Pain Stop: 01/23/24 04:48 Last Admin: 01/12/24 05:46 Dose: 10 mg Pantoprazole Sodium (Pantoprazole 40 Mg Tab) 40 mg PO PM [facility] Stop: 02/08/24 20:59 Last Admin: 01/11/24 20:13 Dose: 40 mg Polyethylene Glycol (Polyethylene (Miralax) 17 Gm Pack) 17 gm PO DAILY [facility] Stop: 02/09/24 10:59 Last Admin: 01/12/24 14:42 Dose: 17 gm Sennosides (Senna 8.6 Mg Tab) 8.6 mg PO QAM [facility] Stop: 02/09/24 10:59 Last Admin: 01/12/24 14:26 Dose: 8.6 mg Vitamin B Complex/Folic Acid (Nephrocaps) 1 cap PO PM [facility] Stop: 02/08/24 20:59 Last Admin: 01/11/24 20:14 Dose: 1 cap Vitamin D (Cholecalciferol 25 Mcg (1000 Units) Tab) 25 mcg PO PM [facility] Stop: 02/08/24 20:59 Last Admin: 01/11/24 20:13 Dose: 25 mcg
[2024-01-12] MEDS: hydrALAZINE TAB 50 MG TAB PO SCH (21:46)
[2024-01-13] MEDS ORDERED: SODIUM CHLORIDE 0.9% 1,000 ML IV PRN ×2 (07:00→07:21)
[2024-01-13 09:48] LABS: Hematocrit (blood only) 26.9 % (37.0-47.0); Hemoglobin 8.4 g/dl (12.0-16.0); Mean Corpuscular Hgb Conc 31.2 g/dL (32.0-36.0); Mean Corpuscular Volume 96.1 fL (80.0-100.0); Mean Platelet Volume 10.5 fL (9.4-12.4); Platelet Count 183 K/uL (130-400); RDW Standard Deviation 52.8 fL (36.4-46.3); White Blood Count 8.11 K/ul (4.8-10.8)
[2024-01-13 10:06] LABS: BUN Creatinine Ratio 6.4 (10-20); Calcium 9.2 mg/dl (8.6-10.3); Est GFR (African American) 7.9 ml/min; Est GFR (Non-African American) 6.9 ml/min; Phosphorus 5.8 mg/dl (2.5-4.9); Potassium 4.8 mmol/L (3.5-5.1)
[2024-01-13] MEDS: HEPARIN SOD (PORCINE) 1000 UNIT/ML IV SCH ×2 (11:53→11:55)
[2024-01-13] MEDS: HEPARIN SOD (PORCINE) 1000 UNIT/ML IV ONE ×2 (11:53→11:54)
--- NOTE | 2024-01-13 11:57 | Dialysis Progress Note ---
Date of Service January 13, 2024 Assessment & Plan (1) ESRD (end stage renal disease) on dialysis: Plan: ESRD on MWF HD via AVF at [facility] [place] B[place]; usually w/ high heparin dosing >> 2000 unit bolus and 600 unit maintenance dose < after tx today w/ minimal clot in chambers chemistries acceptable except for lower sodium and moderate K elevation >>>will routine HD in AM >HD today on 2 K bath > goal 2L UF >> generally patient tolerates 2 to 2.5 L UF at dialysis > Continue 1.2 L FR >cont phos binders and renal vitamin >anemia at acceptable range > no iron or QUINCY w/ tx >next HD on 01/13 or as needs dictate to help with weakness/ensure no vol OL (2) Hypotension of hemodialysis: Plan: UF limited now x 2 txs by hypotension > ? from pain meds or other. pt on many antihypertensives. also too weak to get OOB and lower BP won't help this. BP off HD labile but on lower side including ON >cont lowered hydralazine to 50 mg bid and cont to amlodipine -extra tx as above -con rehab efforts to get OOB Admission and Anticipated Discharge Date Admission Date: January 09, 2024 Subjective No interval events. Knows that she needs fluid off because hands are swollen, rings will move. Denies nausea vomiting. Ongoing significant issues with pain control. Pain control has limited her ability to continue PT and efforts to get out of bed independently. Blood pressure has remained stable on treatment today after BP meds were lowered Review of Systems 2 Review of Systems: All systems reviewed & are unremarkable except as noted in Subjective Physical Exam 2 Constitutional: well developed, + ill appearing, + obese, + frail appearing and cooperative; no acute distress Eyes: EOM intact bilaterally ENMT: Ears: no external ear abnormality Nose: no external nose abnormality Mouth: + dry oral mucous membranes Neck: no nuchal rigidity Respiratory: normal respiratory effort Auscultation: + diminished lung sounds Cardiovascular: Rate/Rhythm: regular rate and regular rhythm Extremities: + edema (Trace) and + AV fistula Gastrointestinal (Abdomen): Inspection/Auscultation: normal bowel sounds P ercussion/Palpation: abdomen soft; abdomen nontender Musculoskeletal: Extremities: + limited ROM of extremities (R knee braced) and strength 5/5 throughout Skin: no rashes, warm and dry Results & Data Vital Signs (Past 12 Hours) Vital Signs Temp Pulse Pulse Pulse Resp BP BP 01/13/24 11:19 36.7 C 77 18 109/71 01/13/24 10:30 64 108/51 L 01/13/24 10:07 01/13/24 10:00 80 115/48 L 01/13/24 09:30 81 117/52 L 01/13/24 09:26 72 117/53 L 01/13/24 09:05 37.0 C 81 01/13/24 07:50 36.8 C 69 18 122/70 01/13/24 07:33 85 01/13/24 02:26 36.8 C 86 18 136/73 Pulse Ox O2 Del Method O2 Flow Rate 01/13/24 11:19 97 Nasal Cannula 2 01/13/24 10:30 01/13/24 10:07 Room Air 01/13/24 10:00 01/13/24 09:30 01/13/24 09:26 01/13/24 09:05 01/13/24 07:50 90 Room Air 01/13/24 07:33 01/13/24 02:26 94 Room Air Laboratory Results 01/13/24 09:13 01/13/24 09:13
[2024-01-13] MEDS: MICONAZOLE NITRATE POWDER 85 GM EXT SCH (12:14)
[2024-01-13] MEDS: carvediloL 6.25 MG TAB PO SCH (13:10)
--- NOTE | 2024-01-13 16:42 | Hospitalist Progress Note ---
Date of Service January 13, 2024 Assessment & Plan (1) Hyperkalemia: Plan: History ESRD on HD Medical telemetry Bicarb 1 dose given on admission for hyperkalemia Nephrology consult Re: Dialysis management Pt had HD (01/08 and on 01/11) Pt hypotensive on HD - last HD today (01/12) - also per nephrology - lowered hydralazine to 50 mg bid and stopped amlodipine Traumatic right tibia fracture s/p mechanical fall Orthopedics consult Re: Right tibia fracture - Recommend nonoperative management with knee immobilizer to right leg, nonweight bearing, and can follow up with orthopedics as outpatient in 2 weeks. I offered to aspirate her knee today and she would like to proceed with that. Procedure note: Right knee sterilely prepped with alcohol and using aseptic technique 50ml of blood was aspirated from her knee. She tolerated the procedure well. No complications. 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 Heparin subcu Full code Patient - Mr. Zhen Finley, contact #[phone]. Admission and Anticipated Discharge Date Admission Date: January 09, 2024 Subjective Pt seen in follow up of tibial fx, hx of ESRD on HD had a mechanical fall Seen by orthopedics - no surg. treatment , left knee was tapped - 50 mL of blood Currently laying in bed in NAD No fever, chills, chest pain or shortness of breath. No abd. pain. Reports R leg improved - today she was able to stand. She also had HD today Plan to DC to rehab Review of Systems Review of Systems: All systems reviewed & are unremarkable except as noted in Subjective Physical Exam Physical Exam: GENERAL: morbidly obese F in NAD HEENT: NC/AT. NECK : Supple, short neck CHEST : CTA, no tenderness HEART : RRR, no obvious murmurs ABDOMEN: Some distention, nontender EXTREMITIES : Tender RLE swelling NEUROLOGIC : Coherent, no facial asymmetry, no other gross focality SKIN: warm, dry Results & Data Results & Data Vital Signs (Past 12 Hours) Vital Signs Temp Pulse Pulse Pulse Resp BP BP 01/13/24 15:52 37.0 C 61 20 111/70 01/13/24 14:59 73 01/13/24 11:47 37.3 C 65 124/50 L 01/13/24 11:26 77 113/51 L 01/13/24 11:19 36.7 C 77 18 109/71 01/13/24 11:00 63 118/46 L 01/13/24 10:30 64 108/51 L 01/13/24 10:07 01/13/24 10:00 80 115/48 L 01/13/24 09:30 81 117/52 L 01/13/24 09:26 72 117/53 L 01/13/24 09:05 37.0 C 81 01/13/24 07:50 36.8 C 69 18 122/70 01/13/24 07:33 85 Pulse Ox O2 Del Method O2 Flow Rate 01/13/24 15:52 94 Room Air 01/13/24 14:59 01/13/24 11:47 01/13/24 11:26 01/13/24 11:19 97 Nasal Cannula 2 01/13/24 11:00 01/13/24 10:30 01/13/24 10:07 Room Air 01/13/24 10:00 01/13/24 09:30 01/13/24 09:26 01/13/24 09:05 01/13/24 07:50 90 Room Air 01/13/24 07:33 Laboratory Results 01/13/24 01/13/24 01/13/24 Range/Units 11:59 09:13 08:10 WBC 8.11 (4.8-10.8) K/ul RBC 2.80 L (4.20-5.40) M/uL Hgb 8.4 L (12.0-16.0) g/dl Hct 26.9 L (37.0-47.0) % MCV 96.1 (80.0-100.0) fL MCH 30.0 (25.0-34.0) pg MCHC 31.2 L (32.0-36.0) g/dL RDW Std Deviation 52.8 H (36.4-46.3) fL RDW Coeff of Leatha 15.0 H (11.5-14.5) % Plt Count 183 (130-400) K/uL MPV 10.5 (9.4-12.4) fL Sodium 128 L (136-145) mmol/L Potassium 4.8 (3.5-5.1) mmol/L Chloride 92 L (98-107) mmol/L Carbon Dioxide 24 (21-32) mmol/L Anion Gap 12 H (3-11) BUN 38 H D (6-23) mg/dl Creatinine 5.94 H* D (0.6-1.2) mg/dl Est Cr Clr Drug Dosing 11.0 ml/min Est GFR ( Amer) 7.9 ml/min Est GFR (Non-Af Amer) 6.9 ml/min BUN/Creatinine Ratio 6.4 L (10-20) Glucose 199 H (70-99(Fasting)) mg/dl POC Glucose 142 H 117 H (70-99) mg/dl Calcium 9.2 (8.6-10.3) mg/dl Phosphorus 5.8 H (2.5-4.9) mg/dl Magnesium 2.0 (1.7-2.4) mg/dl 24 01/12/24 Range/Units 20:31 17:12 WBC (4.8-10.8) K/ul RBC (4.20-5.40) M/uL Hgb (12.0-16.0) g/dl Hct (37.0-47.0) % MCV (80.0-100.0) fL MCH (25.0-34.0) pg MCHC (32.0-36.0) g/dL RDW Std Deviation (36.4-46.3) fL RDW Coeff of Leatha (11.5-14.5) % Plt Count (130-400) K/uL MPV (9.4-12.4) fL Sodium (136-145) mmol/L Potassium (3.5-5.1) mmol/L Chloride (98-107) mmol/L Carbon Dioxide (21-32) mmol/L Anion Gap (3-11) BUN (6-23) mg/dl Creatinine (0.6-1.2) mg/dl Est Cr Clr Drug Dosing ml/min Est GFR ( Amer) ml/min Est GFR (Non-Af Amer) ml/min BUN/Creatinine Ratio (10-20) Glucose (70-99(Fasting)) mg/dl POC Glucose 168 H 102 H (70-99) mg/dl Calcium (8.6-10.3) mg/dl Phosphorus (2.5-4.9) mg/dl Magnesium (1.7-2.4) mg/dl Medications Administered Current Inpatient Medications Acetaminophen (Acetaminophen 325 Mg Tab) 650 mg PO QID PRN PRN Reason: pain/fever Stop: 02/08/24 04:49 Last Admin: 01/12/24 05:46 Dose: 650 mg Amlodipine Besylate (Amlodipine Besylate 5 Mg Tab) [facility] Stop: 02/08/24 08:59 Last Admin: 01/12/24 10:36 Dose: Not Given Aspirin (Aspirin 81 Mg Ectab) 81 mg PO [facility] Stop: 02/08/24 20:59 Last Admin: 01/12/24 21:45 Dose: 81 mg Atorvastatin Calcium (Atorvastatin 40 Mg Tab) 40 mg PO HS [facility] Stop: 02/08/24 20:59 Last Admin: 01/12/24 21:45 Dose: 40 mg Calcium Acetate (Calcium Acetate 667 Mg Cap/Tab) 2,001 mg PO TIDM [facility] Stop: 02/08/24 07:59 Last Admin: 01/13/24 12:15 Dose: 2,001 mg Carvedilol (Carvedilol 6.25 Mg Tab) 6.25 mg PO BIDM [facility] Stop: 02/12/24 12:23 Last Admin: 01/13/24 13:10 Dose: 6.25 mg Citalopram Hydrobromide (Citalopram 20 Mg Tab) 20 mg PO QAM [facility] Stop: 02/08/24 08:59 Last Admin: 01/13/24 12:15 Dose: 20 mg Dextrose (Dextrose 50% 50 Ml Syringe) 25 - 50 ml IV UD PRN; Protocol PRN Reason: Hypoglycemia Protocol Stop: 02/08/24 04:46 Diclofenac Sodium (Diclofenac Sod 1% Gel 100 Gm Tube) 2 gm EXT QID PAULA; Protocol Stop: 02/08/24 08:59 Last Admin: 01/13/24 12:16 Dose: 2 gm Gabapentin (Gabapentin 600 Mg Tab) 300 mg PO HS [facility] Stop: 02/08/24 20:59 Last Admin: 01/12/24 21:45 Dose: 300 mg Glucagon (Glucagon For Inj 1 Mg Vial) 1 mg SQ UD PRN; Protocol PRN Reason: Hypoglycemia Protocol Stop: 02/08/24 04:46 Glucose (Glucose 40% Gel 15 Gm Tube) 15 - 30 gm PO UD PRN; Protocol PRN Reason: Hypoglycemia Protocol Stop: 02/08/24 04:46 Glucose (Glucose 10 Tab/Tube) 4 - 8 tab PO UD PRN; Protocol PRN Reason: Hypoglycemia Treatment Stop: 02/08/24 04:46 Heparin Sodium (Porcine) (Heparin Sod 5,000 Unit/0.5 Ml Vial) 5,000 units SQ Q8 [facility] Stop: 02/08/24 13:59 Last Admin: 01/13/24 12:57 Dose: 5,000 units Hydromorphone HCl (Hydromorphone Inj 0.5 Mg/0.5 Ml Syr) 0.5 mg IV Q6H PRN PRN Reason: Pain Stop: 01/23/24 04:48 Last Admin: 01/13/24 13:02 Dose: 0.5 mg Promethazine HCl 12.5 mg/ (Sodium Chloride) 50.5 mls @ 202 mls/hr IV Q6H PRN PRN Reason: Nausea And Vomiting Stop: 02/08/24 04:48 Last Infusion: 01/12/24 20:39 Dose: Infused Insulin Aspart (Insulin Aspart Per Unit Charge) 0 units SC ACHS [facility] Stop: 02/08/24 04:49 Last Admin: 01/13/24 12:56 Dose: 6 units Insulin Glargine (Lantus Per Unit Charge) 15 units SQ QAM [facility] Stop: 02/09/24 08:59 Last Admin: 01/13/24 08:48 Dose: 15 units Levothyroxine Sodium (Levothyroxine Sodium 100 Mcg Tablet) 100 mcg PO DAILYBB [facility] Stop: 02/08/24 08:14 Last Admin: 01/13/24 06:16 Dose: 100 mcg Melatonin (Melatonin 3 Mg Tab) 9 mg PO HS [facility] Stop: 02/08/24 20:59 Last Admin: 01/12/24 21:47 Dose: 9 mg Miconazole Nitrate (Miconazole Nitrate Powder 85 Gm) 1 appln EXT BID [facility] Stop: 02/12/24 08:59 Last Admin: 01/13/24 12:14 Dose: 1 appln Miscellaneous (Carbohydrates For Hypoglycemia ) 15 - 30 gm PO UD PRN PRN Reason: Hypoglycemia Protocol Stop: 02/08/24 04:46 Oxycodone HCl (Oxycodone Hcl Ir 5 Mg Tab (Immediate Release)) 5 - 10 mg PO QID PRN PRN Reason: Pain Stop: 01/23/24 04:48 Last Admin: 01/13/24 12:14 Dose: 10 mg Pantoprazole Sodium (Pantoprazole 40 Mg Tab) 40 mg PO PM [facility] Stop: 02/08/24 20:59 Last Admin: 01/12/24 21:46 Dose: 40 mg Polyethylene Glycol (Polyethylene (Miralax) 17 Gm Pack) 17 gm PO DAILY [facility] Stop: 02/09/24 10:59 Last Admin: 01/13/24 12:14 Dose: Not Given Sennosides (Senna 8.6 Mg Tab) 8.6 mg PO QAM [facility] Stop: 02/09/24 10:59 Last Admin: 01/13/24 12:14 Dose: 8.6 mg Vitamin B Complex/Folic Acid (Nephrocaps) 1 cap PO PM [facility] Stop: 02/08/24 20:59 Last Admin: 01/12/24 21:45 Dose: 1 cap Vitamin D (Cholecalciferol 25 Mcg (1000 Units) Tab) 25 mcg PO PM [facility] Stop: 02/08/24 20:59 Last Admin: 01/12/24 21:45 Dose: 25 mcg
[2024-01-14] MEDS ORDERED: SODIUM CHLORIDE 0.9% 1,000 ML IV PRN (07:36)
--- NOTE | 2024-01-14 07:47 | Nephrology Progress Note ---
Date of Service January 14, 2024 Assessment & Plan (1) ESRD (end stage renal disease) on dialysis: Plan: ESRD on MWF HD via AVF at [facility] [place] Bbg; usually w/ high heparin dosing >> 2000 unit bolus and 600 unit maintenance dose < will start that dose today chemistries acceptable on last labs but will check today as her sodium/K have needed monitoring >>>for routine HD today on 2 K bath > goal 2L UF >> generally patient tolerates 2 to 2.5 L UF at dialysis > Continue 1.2 L FR >cont phos binders and renal vitamin >anemia has worsened > monitor hgb; max QUINCY w/ tx >next HD on 01/15 or as needs dictate; plan tentatively to rehab at [facility] and do HD there (2) Hypotension of hemodialysis: Plan: UF limited now x 2 txs by hypotension > ? from pain meds or other. pt on many antihypertensives. also too weak to get OOB and lower BP won't help this. BP off HD labile but on lower side including ON >cont lowered hydralazine to 50 mg bid and cont to amlodipine -extra tx as above -con rehab efforts to get OOB Admission and Anticipated Discharge Date Admission Date: January 09, 2024 Subjective no overnight events. slept well; vivid dreams. hand swelling down. stood up yesterday w/ walker Review of Systems Review of Systems: All systems reviewed & are unremarkable except as noted in Subjective Physical Exam Constitutional: well developed, + obese, + frail appearing and cooperative; no acute distress Eyes: EOM intact bilaterally ENMT: Ears: no external ear abnormality Nose: no external nose abnormality Mouth: + dry oral mucous membranes Neck: no nuchal rigidity Respiratory: normal respiratory effort Auscultation: + diminished lung sounds Cardiovascular: Rate/Rhythm: regular rate and regular rhythm Extremities: + AV fistula; no edema Gastrointestinal (Abdomen): Inspection/Auscultation: normal bowel sounds Percussion/Palpation: abdomen soft; abdomen nontender Musculoskeletal: Extremities: + limited ROM of extremities (R knee braced) and strength 5/5 throughout Skin: no rashes, warm and dry Results & Data Vital Signs (Past 12 Hours) Vital Signs Temp Pulse Pulse Resp BP Pulse Ox O2 Del Method 01/14/24 07:36 Room Air 01/14/24 07:06 82 01/14/24 03:51 36.8 C 80 18 115/75 93 Room Air 01/13/24 23:22 71 01/13/24 23:02 36.7 C 69 16 116/68 93 Room Air 01/13/24 22:09 Room Air 01/13/24 20:06 37.1 C 74 16 102/49 L 93 Room Air Laboratory Results none posted this am
[2024-01-14 09:25] LABS: Hematocrit (blood only) 29.5 % (37.0-47.0); Hemoglobin 9.4 g/dl (12.0-16.0); Mean Corpuscular Hemoglobin 30.4 pg (25.0-34.0); Mean Corpuscular Hgb Conc 31.9 g/dL (32.0-36.0); Mean Corpuscular Volume 95.5 fL (80.0-100.0); Mean Platelet Volume 9.9 fL (9.4-12.4); Platelet Count 195 K/uL (130-400); RDW Standard Deviation 51.7 fL (36.4-46.3); Red Blood Count 3.09 M/uL (4.20-5.40); White Blood Count 8.33 K/ul (4.8-10.8)
[2024-01-14 09:34] LABS: BUN Creatinine Ratio 7.1 (10-20); Calcium 9.2 mg/dl (8.6-10.3); Creatinine Clr Calc Pharmacy 11.3 ml/min; Est GFR (African American) 8.2 ml/min; Potassium 4.9 mmol/L (3.5-5.1)
[2024-01-14] MEDS: EPOETIN ALFA 20,000 UNITS/ML VIAL IV ONE (12:30)
[2024-01-14] MEDS: HEPARIN SOD (PORCINE) 1000 UNIT/ML IV ONE (12:34)
[2024-01-14] MEDS: HEPARIN SOD (PORCINE) 1000 UNIT/ML IV SCH (12:34)
[2024-01-14] MEDS ORDERED: Nursing to Pharmacy Communication SCH (14:15)
--- NOTE | 2024-01-14 16:57 | Hospitalist Progress Note ---
Date of Service January 14, 2024 Assessment & Plan (1) Hyperkalemia: Plan: per previous hospitalist notes with addendum: History ESRD on HD Medical telemetry Bicarb 1 dose given on admission for hyperkalemia Nephrology consult Re: Dialysis management Pt had HD (01/08 and on 01/11) Pt hypotensive on HD - last HD today (01/12) - also per nephrology - lowered hydralazine to 50 mg bid and stopped amlodipine 01/13 stable overall BP also improving Traumatic right tibia fracture s/p mechanical fall Orthopedics consult Re: Right tibia fracture - Recommend nonoperative management with knee immobilizer to right leg, nonweight bearing, and can follow up with orthopedics as outpatient in 2 weeks. I offered to aspirate her knee today and she would like to proceed with that. Procedure note: Right knee sterilely prepped with alcohol and using aseptic technique 50ml of blood was aspirated from her knee. She tolerated the procedure well. No complications. 01/13 agreeable to transition to acute rehab Chronic conditions: chronic diastolic heart failure (EF 60 to 65%, TTE 2020), euvolemic SSS status post PPM, paced rhythm MINISTERIO on CPAP, pulmonary hypertension DM2 on insulin requiring, reasonable control as of recent hemoglobin A1c of 7.8 last November 2022 basal bolus insulin, ISS BG goal 1 10-140, carb count coverage, current hemoglobin A1c 7.3% hypothyroidism, euthyroid as of today's TSH chronic hyponatremia GERD, stable on regimen history gastric bypass endometrial cancer status post surgery melanoma status post surgery chronic anemia, hemoglobin at baseline DVT prophylaxis. Heparin subcu Full code Disposition transition to acute rehab when medically stable Admission and Anticipated Discharge Date Admission Date: January 09, 2024 Subjective Follow-up for hyperkalemia, ESRD, etc. Seen resting in bed, sleeping but easily awakened, comfortable States she feels fine overall No shortness of breath, chest pain, dizziness No weakness No other new symptom Review of Systems Review of Systems: all noted and negative except for above Physical Exam Physical Exam: General- oriented x 3, not in distress, speaks in sentences with no effort or accessory muscle use Eyes- anicteric Neck- no JVD Lungs- clear breath sounds bilaterally, no rales/wheezes Heart- normal rate, regular rhythm; no murmurs Abdomen- normal bowel sounds, nondistended, soft, nontender Extremities- no pretibial edema, no calf tenderness Neuro- alert, oriented x 3; no gross focal neurologic deficits Skin- warm & dry Results & Data Results & Data Vital Signs (Past 12 Hours) Vital Signs Temp Pulse Pulse Resp BP BP Pulse Ox 01/14/24 16:14 36.8 C 77 16 115/63 92 01/14/24 15:32 73 01/14/24 13:05 36.9 C 73 116/56 L 01/14/24 12:30 72 154/70 H 01/14/24 12:00 81 166/78 H 01/14/24 11:30 71 125/76 01/14/24 11:00 99 H 123/105 H 01/14/24 10:30 70 126/57 L 01/14/24 10:00 69 151/75 H 01/14/24 09:30 66 153/61 H 01/14/24 09:19 37.0 C 71 01/14/24 07:51 36.6 C 84 16 102/62 92 01/14/24 07:36 01/14/24 07:06 82 O2 Del Method O2 Flow Rate 01/14/24 16:14 Nasal Cannula 2 01/14/24 15:32 01/14/24 13:05 01/14/24 12:30 01/14/24 12:00 01/14/24 11:30 01/14/24 11:00 01/14/24 10:30 01/14/24 10:00 01/14/24 09:30 01/14/24 09:19 01/14/24 07:51 Room Air 01/14/24 07:36 Room Air 01/14/24 07:06 all noted and reviewed including below
[2024-01-14] MEDS: carvediloL 6.25 MG TAB PO SCH (19:50)
--- NOTE | 2024-01-15 19:06 | Hospitalist Progress Note ---
Date of Service January 15, 2024 Assessment & Plan (1) Hyperkalemia: Plan: per previous hospitalist notes with addendum: History ESRD on HD Medical telemetry Bicarb 1 dose given on admission for hyperkalemia Nephrology consult Re: Dialysis management Pt had HD (01/08 and on 01/11) Pt hypotensive on HD - last HD today (01/12) - also per nephrology - lowered hydralazine to 50 mg bid and stopped amlodipine 01/13 stable overall BP also improving 01/14 Stable Traumatic right tibia fracture s/p mechanical fall Orthopedics consult Re: Right tibia fracture - Recommend nonoperative management with knee immobilizer to right leg, nonweight bearing, and can follow up with orthopedics as outpatient in 2 weeks. I offered to aspirate her knee today and she would like to proceed with that. Procedure note: Right knee sterilely prepped with alcohol and using aseptic technique 50ml of blood was aspirated from her knee. She tolerated the procedure well. No complications. 01/14 agreeable to transition to acute rehab Chronic conditions: chronic diastolic heart failure (EF 60 to 65%, TTE 2020), euvolemic SSS status post PPM, paced rhythm MINISTERIO on CPAP, pulmonary hypertension DM2 on insulin requiring, reasonable control as of recent hemoglobin A1c of 7.8 last November 2022 basal bolus insulin, ISS BG goal 1 10-140, carb count coverage, current hemoglobin A1c 7.3% hypothyroidism, euthyroid as of today's TSH chronic hyponatremia GERD, stable on regimen history gastric bypass endometrial cancer status post surgery melanoma status post surgery chronic anemia, hemoglobin at baseline DVT prophylaxis. Heparin subcu Full code Disposition transition to [facility] once bed available Admission and Anticipated Discharge Date Admission Date: January 09, 2024 Subjective Follow-up for ESRD, hyperkalemia, etc. Seen resting in bed, comfortable, not in distress States she feels fine overall No chest pain, shortness of breath and palpitation, dizziness, abdominal pain, nausea vomiting Right knee pain improving No other new symptoms Review of Systems Review of Systems: all noted and negative except for above Physical Exam Physical Exam: General- oriented x 3, not in distress, speaks in sentences with no effort or accessory muscle use Eyes- anicteric Neck- no JVD Lungs- clear breath sounds bilaterally, no rales/wheezes Heart- normal rate, regular rhythm; no murmurs Abdomen- normal bowel sounds, nondistended, soft, nontender Extremities- no pretibial edema, no calf tenderness Right knee immobilizer in place Neuro- alert, oriented x 3; no gross focal neurologic deficits Skin- warm & dry Results & Data Results & Data Vital Signs (Past 12 Hours) Vital Signs Temp Pulse Pulse Resp BP Pulse Ox O2 Del Method 01/15/24 16:03 36.6 C 65 18 121/75 92 Room Air 01/15/24 14:36 81 01/15/24 11:41 36.6 C 69 16 122/77 92 Room Air 01/15/24 11:28 79 all noted and reviewed including below
[2024-01-16] MEDS ORDERED: SODIUM CHLORIDE 0.9% 1,000 ML IV PRN (07:00)
[2024-01-16 11:28] VITALS: TEMP 97.9
--- NOTE | 2024-01-16 11:35 | Nephrology Progress Note ---
Date of Service January 16, 2024 Assessment & Plan (1) ESRD (end stage renal disease) on dialysis: Plan: ESRD on MWF HD via [facility] at [facility]; usually w/ high heparin dosing >> 2000 unit bolus and 600 unit maintenance dose . >>>for routine HD today on 2 K bath > goal 2L UF >> generally patient tolerates 2 to 2.5 L UF at dialysis > Continue 1.2 L FR >cont phos binders and renal vitamin >anemia has worsened > monitor hgb; max QUINCY w/ tx >next HD on Friday or as needs dictate; plan tentatively to rehab at [facility] and do HD there (2) Hypotension of hemodialysis: Plan: UF limited now x 2 txs by hypotension > ? from pain meds or other. pt on many antihypertensives. also too weak to get OOB and lower BP won't help this. BP off HD labile but on lower side including ON >cont lowered hydralazine to 50 mg bid and cont to amlodipine -extra tx as above -con rehab efforts to get OOB Admission and Anticipated Discharge Date Admission Date: January 09, 2024 Subjective Follow-up for ESRD. Seen resting in bed, comfortable, not in distress Review of Systems 2 Review of Systems: All systems reviewed & are unremarkable except as noted in HPI & below Results & Data Vital Signs (Past 12 Hours) Vital Signs Temp Pulse Pulse Resp BP Pulse Ox O2 Del Method 01/16/24 10:20 36.6 C 72 01/16/24 08:04 36.5 C 65 16 124/70 93 Room Air 01/16/24 07:45 67 01/16/24 03:20 36.8 C 70 18 125/85 91 Room Air Laboratory Results 01/14/24 08:47 01/14/24 08:47
[2024-01-16] MEDS: HEPARIN SOD (PORCINE) 1000 UNIT/ML IV ONE (12:19)
--- NOTE | 2024-01-16 14:27 | Hospitalist Progress Note ---
Date of Service January 16, 2024 Assessment & Plan (1) Hyperkalemia: Plan: per previous hospitalist notes with addendum: History ESRD on HD Medical telemetry Bicarb 1 dose given on admission for hyperkalemia Nephrology consult Re: Dialysis management Pt had HD (01/08 and on 01/11) Pt hypotensive on HD - last HD today (01/12) hydralazine discontinued carvedilol decreased to 6.25 mg p.o. twice daily Usual amlodipine continued 01/15 Stable further HD per Nephro Traumatic right tibia fracture s/p mechanical fall Orthopedics consult Re: Right tibia fracture - Recommend nonoperative management with knee immobilizer to right leg, nonweight bearing, and can follow up with orthopedics as outpatient in 2 weeks. I offered to aspirate her knee today and she would like to proceed with that. Procedure note: Right knee sterilely prepped with alcohol and using aseptic technique 50ml of blood was aspirated from her knee. She tolerated the procedure well. No complications. knee immobilizer to right leg, nonweight bearing, and can follow up with orthopedics as outpatient in 2 weeks. 01/14 agreeable to transition to [facility] Chronic conditions: chronic diastolic heart failure (EF 60 to 65%, TTE 2020), euvolemic SSS status post PPM, paced rhythm MINISTERIO on CPAP, pulmonary hypertension DM2 on insulin requiring, reasonable control as of recent hemoglobin A1c of 7.8 last November 2022 current hemoglobin A1c 7.3% Morbid obesity with BMI 40.8 hypothyroidism, euthyroid as of today's TSH chronic hyponatremia GERD, stable on regimen history gastric bypass endometrial cancer status post surgery melanoma status post surgery chronic anemia, hemoglobin at baseline DVT prophylaxis. Heparin subcu Full code Disposition transition to [facility] Admission and Anticipated Discharge Date Admission Date: January 09, 2024 Subjective Follow-up for hyperkalemia, ESRD, etc. Seen resting in bed, comfortable, not in distress States she feels fine overall Right knee pain well-controlled No other new symptoms states she is ready for discharge today Review of Systems Review of Systems: all noted and negative except for above Physical Exam Physical Exam: General- oriented x 3, not in distress, speaks in sentences with no effort or accessory muscle use Eyes- anicteric Neck- no JVD Lungs- clear breath sounds bilaterally, no rales/wheezes Heart- normal rate, regular rhythm; no murmurs Abdomen- normal bowel sounds, nondistended, soft, nontender Extremities- no pretibial edema, no calf tenderness Right knee immobilizer in place Neuro- alert, oriented x 3; no gross focal neurologic deficits Skin- warm & dry Results & Data Results & Data Vital Signs (Past 12 Hours) Vital Signs Temp Pulse Pulse Resp BP BP Pulse Ox 01/16/24 13:30 59 L 116/54 L 01/16/24 13:00 59 L 123/52 L 01/16/24 12:30 61 101/51 L 01/16/24 12:00 61 91/52 L 01/16/24 11:30 61 121/51 L 01/16/24 10:20 36.6 C 72 01/16/24 10:00 60 109/49 L 01/16/24 09:37 70 127/56 L 01/16/24 08:04 36.5 C 65 16 124/70 93 01/16/24 07:45 67 01/16/24 03:20 36.8 C 70 18 125/85 91 O2 Del Method 01/16/24 13:30 01/16/24 13:00 01/16/24 12:30 01/16/24 12:00 01/16/24 11:30 01/16/24 10:20 01/16/24 10:00 01/16/24 09:37 01/16/24 08:04 Room Air 01/16/24 07:45 01/16/24 03:20 Room Air all noted and reviewed including below
--- NOTE | 2024-01-16 14:50 | Discharge Summary ---
Discharge Summary Date of Service January 16, 2024 Principal Dx & Hospital Course #1 = Principal Diagnosis (1) Hyperkalemia: per previous hospitalist notes with addendum: History ESRD on HD Medical telemetry Bicarb 1 dose given on admission for hyperkalemia Nephrology consult Re: Dialysis management Pt had HD (01/08 and on 01/11) Pt hypotensive on HD - last HD today (01/12) hydralazine discontinued carvedilol decreased to 6.25 mg p.o. twice daily Usual amlodipine continued 01/15 Stable further HD per Nephro Traumatic right tibia fracture s/p mechanical fall Orthopedics consult Re: Right tibia fracture - Recommend nonoperative management with knee immobilizer to right leg, nonweight bearing, and can follow up with orthopedics as outpatient in 2 weeks. I offered to aspirate her knee today and she would like to proceed with that. Procedure note: Right knee sterilely prepped with alcohol and using aseptic technique 50ml of blood was aspirated from her knee. She tolerated the procedure well. No complications. knee immobilizer to right leg, nonweight bearing, and can follow up with orthopedics as outpatient in 2 weeks. 01/14 agreeable to transition to centre care Chronic conditions: chronic diastolic heart failure (EF 60 to 65%, TTE 2020), euvolemic SSS status post PPM, paced rhythm MINISTERIO on CPAP, pulmonary hypertension DM2 on insulin requiring, reasonable control as of recent hemoglobin A1c of 7.8 last November 2022 current hemoglobin A1c 7.3% Morbid obesity with BMI 40.8 hypothyroidism, euthyroid as of today's TSH chronic hyponatremia GERD, stable on regimen history gastric bypass endometrial cancer status post surgery melanoma status post surgery chronic anemia, hemoglobin at baseline DVT prophylaxis. Heparin subcu Full code Disposition transition to [facility] Notes For Next Care Provider Medication Changes From Visit Please see assessment and plan above Admission HPI Per Admitting Provider History obtained from patient, family, and records. Medical history significant for chronic diastolic heart failure (EF 60 to 65%, TTE 2020), SSS status post PPM, MINISTERIO on CPAP, pulmonary hypertension, ESRD on HD, DM2 on insulin requiring, hypothyroidism, chronic hyponatremia, GERD, gastroparesis, history gastric bypass, endometrial cancer status post surgery, melanoma status post surgery, chronic anemia (baseline hemoglobin 9- 10), mood disorder. Last confinement October 2022 for leg weakness attributed to neuropathy. Patient slipped in camper last night landing on right leg. Slight head trauma without headache, LOC. Achy right lower leg pain worse on movement. No chest pain, no SOB. EMS called to patient's camper by . 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 Admission Exam Per Admitting Provider GENERAL: Comfortable, pleasant, morbidly obese, no respiratory distress SKIN: Pallor, warm HEENT: Pale palpebral conjunctivae, no ptosis, dry buccal mucosa NECK : Supple, short neck, no tenderness CHEST : CTA, no tenderness HEART : RRR, no obvious murmurs ABDOMEN: Some distention, nontender EXTREMITIES : Tender RLE swelling, no other conspicuous deformities noted NEUROLOGIC : Coherent, no facial asymmetry, no other gross focality Discharge Exam General- oriented x 3, not in distress, speaks in sentences with no effort or accessory muscle use Eyes- anicteric Neck- no JVD Lungs- clear breath sounds bilaterally, no rales/wheezes Heart- normal rate, regular rhythm; no murmurs Abdomen- normal bowel sounds, nondistended, soft, nontender Extremities- no pretibial edema, no calf tenderness Right knee immobilizer in place Neuro- alert, oriented x 3; no gross focal neurologic deficits Skin- warm & dry Updated Medication List Medication Instructions Recorded Confirmed Type hydralazine 100 mg tablet 100 mg PO TID 11/06/22 01/09/24 History RSV vac, preF A and preF B(PF) 120 01/09/24 01/09/24 History mcg/0.5 mL IM solution (Abrysvo) amlodipine 5 mg tablet 5 mg PO QAM 30 days #30 tabs 01/16/24 Rx aspirin 81 mg chewable tablet 81 mg PO HS 30 days #30 tabs 01/16/24 Rx atorvastatin 40 mg tablet 40 mg PO HS 30 days #30 tabs 01/16/24 Rx calcium acetate 667 mg tablet 2,001 mg (3 x 667 mg) PO TIDM 30 01/16/24 Rx days #90 tabs carvedilol 12.5 mg tablet 6.25 mg (1/2 x 12.5 mg) PO AMHS 30 01/16/24 Rx days #15 tabs cholecalciferol (vitamin D3) 25 25 mcg PO PM 30 days #30 tabs 01/16/24 Rx mcg (1,000 unit) tablet (Vitamin D3) citalopram 40 mg tablet 20 mg (1/2 x 40 mg) PO QAM 30 days 01/16/24 Rx #30 tabs cyanocobalamin (vitamin B-12) 1,000 mcg IM Q90D 30 days #1 mL 01/16/24 Rx 1,000 mcg/mL injection solution diclofenac sodium 1 % topical gel 2 g topical QID 30 days #100 grams 01/16/24 Rx gabapentin 600 mg tablet 300 mg (1/2 x 600 mg) PO HS 30 01/16/24 Rx days #15 tabs heparin, porcine (PF) 5,000 5,000 unit (0.5 mL) subcut Q8 30 01/16/24 Rx unit/0.5 mL injection syringe days #45 mL insulin glargine 100 unit/mL (3 16 unit (0.16 mL) subcut QAM 30 01/16/24 Rx mL) subcutaneous pen (Lantus days #4.8 mL Solostar U-100 Insulin) levothyroxine 100 mcg tablet 100 mcg PO QAM 30 days #30 tabs 01/16/24 Rx melatonin 10 mg tablet 10 mg PO HS 30 days #30 tabs 01/16/24 Rx miconazole nitrate 2 % topical 1 applic EXT BID 7 days #85 grams 01/16/24 Rx powder (Desenex) omeprazole 40 mg capsule,delayed 20 mg (1/2 x 40 mg) PO PM 30 days 01/16/24 Rx release #15 caps polyethylene glycol 3350 17 gram 17 g PO DAILY PRN Constipation #30 01/16/24 Rx oral powder packet ea sennosides 8.6 mg tablet (Senokot) 8.6 mg PO QAM #30 tabs 01/16/24 Rx vit B complx, C-iron 8 mg-folic 1 tab PO PM 30 days #30 tabs 01/16/24 Rx acid 800 mcg-D3 1,000 unit-zinc tablet (ProRenal) Hospital Stay Data Consultations 01/09/24 04:40 ED Decision to Admit Stat 01/09/24 06:56 Consult Orthopedic Surgery Routine 06/21/24 08:00 Consult Nephrology Routine Diagnostic Imagining Performed Laboratory Results WBC 8.33 K/ul (4.8-10.8) 01/14/24 08:47 RBC 3.09 M/uL (4.20-5.40) L 01/14/24 08:47 Hgb 9.4 g/dl (12.0-16.0) L 01/14/24 08:47 Hct 29.5 % (37.0-47.0) L 01/14/24 08:47 MCV 95.5 fL (80.0-100.0) 01/14/24 08:47 MCH 30.4 pg (25.0-34.0) 01/14/24 08:47 MCHC 31.9 g/dL (32.0-36.0) L 01/14/24 08:47 RDW Std Deviation 51.7 fL (36.4-46.3) H 01/14/24 08:47 RDW Coeff of Leatha 15.0 % (11.5-14.5) H 01/14/24 08:47 Plt Count 195 K/uL (130-400) 01/14/24 08:47 MPV 9.9 fL (9.4-12.4) 01/14/24 08:47 Immature Gran % (Auto) 0.3 % 01/10/24 05:56 Neut % (Auto) 62.9 % 01/10/24 05:56 Lymph % (Auto) 24.0 % 01/10/24 05:56 [place] % (Auto) 10.1 % 01/10/24 05:56 Eos % (Auto) 1.9 % 01/10/24 05:56 Baso % (Auto) 0.8 % 01/10/24 05:56 Neut # (Auto) 6.04 K/uL (1.40-6.50) 01/10/24 05:56 Lymph # (Auto) 2.31 K/uL (1.20-3.40) 01/10/24 05:56 [place] # (Auto) 0.97 K/uL (0.11-0.59) H 01/10/24 05:56 Eos # (Auto) 0.18 K/uL (0.00-0.50) 01/10/24 05:56 Baso # (Auto) 0.08 K/uL (0.00-0.20) 01/10/24 05:56 Immature Gran # (Auto) 0.03 K/uL (0.01-0.20) 01/10/24 05:56 PT 10.0 Seconds (9.0-12.0) 01/09/24 02:30 INR 0.9 (0.9-1.1) 01/09/24 02:30 Sodium 129 mmol/L (136-145) L 01/14/24 08:47 Potassium 4.9 mmol/L (3.5-5.1) 01/14/24 08:47 Chloride 93 mmol/L (98-107) L 01/14/24 08:47 Carbon Dioxide 24 mmol/L (21-32) 01/14/24 08:47 Anion Gap 12 (3-11) H 01/14/24 08:47 BUN 41 mg/dl (6-23) H 01/14/24 08:47 Creatinine 5.81 mg/dl (0.6-1.2) H* 01/14/24 08:47 Est Cr Clr Drug Dosing 11.3 ml/min 01/14/24 08:47 Est GFR ( Amer) 8.2 ml/min 01/14/24 08:47 Est GFR (Non-Af Amer) 7.0 ml/min 01/14/24 08:47 BUN/Creatinine Ratio 7.1 (10-20) L 01/14/24 08:47 Glucose 205 mg/dl (70-99(Fasting)) H 01/14/24 08:47 POC Glucose 101 mg/dl (70-99) H 01/16/24 14:30 Estimat Average Glucose 163 mg/dl 01/09/24 02:30 Hemoglobin A1c 7.3 % (4.5-5.6) H 01/09/24 02:30 Calcium 9.2 mg/dl (8.6-10.3) 01/14/24 08:47 Phosphorus 5.8 mg/dl (2.5-4.9) H 01/13/24 09:13 Magnesium 2.0 mg/dl (1.7-2.4) 01/13/24 09:13 Total Bilirubin 0.6 mg/dl (0.2-1.0) 01/09/24 02:30 AST 26 U/L (13-39) 01/09/24 02:30 ALT 22 U/L (7-52) 01/09/24 02:30 Alkaline Phosphatase 117 U/L (34-104) H 01/09/24 02:30 Total Creatine Kinase 45 U/L (26-192) 01/09/24 02:30 Total Protein 7.2 gm/dl (6.0-8.3) 01/09/24 02:30 Albumin 4.0 gm/dl (3.4-5.0) 01/09/24 02:30 Globulin 3.2 gm/dl (2.5-4.0) 01/09/24 02:30 Albumin/Globulin Ratio 1.3 (0.9-2) 01/09/24 02:30 TSH 3.205 uIu/ml (0.300-4.500) 01/09/24 02:30 Nasal Screen MRSA (PCR) Negative (Negative) 01/14/24 20:06 Hep B Core IgM Ab NON-REACTIVE (NON-REACTIVE) 01/14/24 12:[address] 01/09/24 02:02 Exam(s): CT C SPINE EXAM: CT Cervical Spine Without Intravenous Contrast CLINICAL HISTORY: Reason for exam: fall. TECHNIQUE: Axial computed tomography images of the cervical spine without intravenous contrast. CTDI is 58.29 mGy and DLP is 2645.97 mGy-cm. Automated exposure control was utilized for the study. A dose lowering technique was utilized adhering to the principles of ALARA. COMPARISON: No relevant prior studies available. FINDINGS: Vertebrae: Mild degenerative changes. Prominent Schmorl's node C6 inferior endplate. No acute fracture. Discs/spinal canal/neural foramina: No acute findings. No spinal canal stenosis. Soft tissues: Unremarkable. IMPRESSION: No acute findings in the cervical spine. Electronically signed by: Radha Wellington M.D. 01/09/24 05:25 AM Chest X-Ray 01/09/24 02:02 SINGLE VIEW CHEST CLINICAL HISTORY: Fall. FINDINGS: An AP, portable, upright chest radiograph is compared to study dated 11/06/2022. Correlation is made with chest CT dated 02/23/2013. A 2-lead cardiac pacemaker is unchanged in position. The heart is enlarged and noting atherosclerotic calcification of the thoracic aorta. The pulmonary vasculature is noncongested. Chronic interstitial thickening is similar to previous. There is bibasilar scarring/atelectasis. The lungs and pleural spaces are otherwise clear. No pneumothorax is seen. The skeletal structures are osteopenic. The bony thorax is grossly intact. IMPRESSION: 1. Cardiomegaly and cardiac pacemaker without radiographic evidence of congestive failure. 2. No airspace consolidation or large pleural effusion is identified. ACT 112: Negative or not required by law. Electronically signed by: Marco Antonio Martins M.D. 01/09/2024 8:[address] 01/09/24 02:02 Exam(s): CT HEAD Without Contrast EXAM: CT Head Without Intravenous Contrast CLINICAL HISTORY: Reason for exam: fall. TECHNIQUE: Axial computed tomography images of the head/brain without intravenous contrast. CTDI is 58.29 mGy and DLP is 2645.97 mGy-cm. Automated exposure control was utilized for the study. A dose lowering technique was utilized adhering to the principles of ALARA. COMPARISON: CT Head dated 11/06/22 FINDINGS: Brain: Volume loss with prominent ventricles and sulci. Periventricular white matter hypoattenuation likely reflects chronic small vessel disease. No hemorrhage. Ventricles: See above. Bones/joints: Unremarkable. No acute fracture. Soft tissues: Unremarkable. Sinuses: Unremarkable as visualized. No acute sinusitis. Mastoid air cells: Unremarkable as visualized. No mastoid effusion. Orbits: Bilateral intraocular lens implants. IMPRESSION: No acute findings in the head/brain. Electronically signed by: Radha Wellington M.D. 01/09/24 05:23 AM Knee X-Ray 01/09/24 02:02 XR tibia fibula RT 2V, XR knee RT 1 or 2V routine HISTORY: 63 years-old Female fall acute head trauma status post fall COMPARISON: None TECHNIQUE: 2 views of the right tibia and fibula with 2 views of the right knee FINDINGS: TIBIA/FIBULA: Arterial calcifications. Mild diffuse soft tissue prominence. Moderate size joint effusion. Osteoarthritis of the foot and ankle with large calcaneal enthesophytes. KNEE: There is a vertical linear lucency projected over the the mid medullary space of the proximal tibial metadiaphysis, not seen on the lateral view. Mild tricompartmental osteoarthritis with moderate size joint effusion. Arterial calcifications. IMPRESSION: 1. No acute fracture or dislocation identified. 2. Moderate-sized joint effusion. 3. Proximal tibial linear lucency is favored to be artifact. A subtle acute nondisplaced fracture considered less likely. ACT 112: Negative or not required by law. The above report was generated using voice recognition software. It may contain grammatical, syntax or spelling errors. Electronically signed by: Lee Ghosh M.D. 01/09/2024 6:57 AM Tibia/Fibula X-Ray 01/09/24 02:02 XR tibia fibula RT 2V, XR knee RT 1 or 2V routine HISTORY: 63 years-old Female fall acute head trauma status post fall COMPARISON: None TECHNIQUE: 2 views of the right tibia and fibula with 2 views of the right knee FINDINGS: TIBIA/FIBULA: Arterial calcifications. Mild diffuse soft tissue prominence. Moderate size joint effusion. Osteoarthritis of the foot and ankle with large calcaneal enthesophytes. KNEE: There is a vertical linear lucency projected over the the mid medullary space of the proximal tibial metadiaphysis, not seen on the lateral view. Mild tricompartmental osteoarthritis with moderate size joint effusion. Arterial calcifications. IMPRESSION: 1. No acute fracture or dislocation identified. 2. Moderate-sized joint effusion. 3. Proximal tibial linear lucency is favored to be artifact. A subtle acute nondisplaced fracture considered less likely. ACT 112: Negative or not required by law. The above report was generated using voice recognition software. It may contain grammatical, syntax or spelling errors. Electronically signed by: Lee Ghosh M.D. 01/09/2024 6:[address] 01/09/24 02:36 Exam(s): CT EXTREMITY RIGHT LOWER Without Contrast EXAM: CT Right Lower Extremity Without Intravenous Contrast CLINICAL HISTORY: Reason for exam: fall, pain. TECHNIQUE: Axial computed tomography images of the right lower extremity without intravenous contrast. CTDI is 58.29 mGy and DLP is 2645.97 mGy-cm. Automated exposure control was utilized for the study. A dose lowering technique was utilized adhering to the principles of ALARA. COMPARISON: No relevant prior studies available. FINDINGS: Bones/joints: Right lateral tibial plateau fracture with minimal depression. Involves the lateral tibial spine. Moderate lipohemarthrosis, partially visualized. No dislocation. Soft tissues: Mild soft tissue swelling Vasculature: Marked arterial calcifications throughout the visualized arteries of the lower leg. IMPRESSION: 1. Right lateral tibial plateau fracture with minimal depression. Involves the lateral tibial spine. 2. Moderate lipohemarthrosis, partially visualized. Electronically signed by: Radha Wellington M.D. 01/09/24 05:57 AM Pending Results Patient Have Any Pending Studies at Discharge: No Discharge Instructions Given to Patient (Per Discharging Provider) Please refer to accompanying hospital discharge summary for further details. Total Time Total Time Spent Total Time Spent (In Minutes): 45 minutes
[2024-01-16 15:47] VITALS: BP 129/68; RESP 20; O2SAT 97
[2024-01-16 16:17] VITALS: PULSE 77
== END 2024-01-16 16:18 | DRG 562 ==
LOC: ED 01:54 → SUATTDRO 05:46 → EDINP 05:46 → 2N 08:00

== ENCOUNTER 2024-07-07 13:37 | Inpatient (IN) ==
--- NOTE | 2024-07-07 14:52 | XRay Report ---
XR chest 1V not portable CLINICAL HISTORY: Chest pain, nonspecific COMPARISON STUDY: Chest radiograph January 09, 2024. Chest CT February 23, 2013. FINDINGS: Left subclavian pacemaker is unchanged in position. There is moderate cardiomegaly. Pulmona ry vascular congestion is noted. There is minimal right basilar opacity. There is no pneumothorax or pleural effusion. IMPRESSION: Cardiomegaly with pulmonary vascular congestion. ACT 112: Negative or not required by law. Electronically signed by: Mihir Loaiza M.D. 07/07/2024 2:51 PM
--- NOTE | 2024-07-07 15:50 | Emergency Department Note ---
Impression & Plan Hypoxia, ESRD (end stage renal disease) on dialysis, Rhinovirus infection ED Provider Note NAME: TAMARA EAGLE AGE: 63 SEX: F : 1960 ARRIVES VIA: Walk-In INFORMANT: Patient ED PROVIDER(S): Jone Peterson MD CHIEF COMPLAINT: Hypoxia, shortness of breath, referred. PLAN: Disposition: Admit MEDICAL DECISION MAKING: The patient is a pleasant 63-year-old woman with past medical history of end- stage renal disease on hemodialysis, Friday, hypertension, hyperlipidemia, MINISTERIO on CPAP, sick sinus syndrome status post PPM, chronic diastolic heart failure who presents to the emergency department via walk-in accompanied by her for evaluation of cough, congestion, shortness of breath where she reports she was seen by her doctor today and referred to the emergency department. Patient reports she did not come immediately to the emergency department as she needed to wait for her to get home. She reports she was not given dialysis today because she was referred to the emergency department. On arrival the patient is no distress, afebrile with O2 saturation down to 88% on room air placed on 2 L nasal cannula. She has boggy nasal turbinates. She has intermittent wheezes and rhonchi of bilateral lower lung torres. She exhibits normal respiratory effort. Right forearm AV fistula with palpable thrill. EKG is paced. Chest x-ray with vascular congestion and question of minimal right basilar opacity. WBC, HCT and platelets within normal limits. Creatinine is 6 with BUN of 45 in setting of known end-stage renal disease on hemodialysis. Potassium was 5.7. LFTs unremarkable. High-sensitivity troponin 19, nonspecific. Respiratory BioFire was positive for enterovirus/rhinovirus. The patient was treated with Solu-Medrol, DuoNeb for component of bronchospasm. Given the patient's hypoxia in the setting of her rhinovirus in the setting of her end-stage renal disease patient agrees with plan for admission for further management. Case was discussed with Dr. Ricardo, [facility] hospitalist, who will evaluate the patient for admission. Procalcitonin was elevated at 0.8, will defer decision for antibiotics to admitting team. Further management per admitting team. Triage Nursing notes reviewed and agree them. Prior/external medical records reviewed Vital Signs: reviewed Differential diagnosis: Reactive airway disease, pneumonia, pneumothorax, COPD, CHF, infections, cardiac ischemia, pulmonary embolism, musculoskeletal, gastrointestinal, as well as other pathologies. ER treatment provided: See below. Diagnostics interpreted by me: ECG: Atrial sensed, ventricular paced rhythm, 76 bpm, no overt acute ischemia. Cardiac Monitoring: An order for continuous cardiac monitoring was placed and demonstrated atrial sensed, ventricular paced rhythm, 76 bpm, no ectopy. Laboratory studies: See below Imaging studies: See below Consultation(s): Dr. Ricardo, [facility] hospitalist HPI: The patient is a pleasant 63-year-old woman with past medical history of end-stage renal disease on hemodialysis, Friday, hypertension, hyperlipidemia, MINISTERIO on CPAP, sick sinus syndrome status post PPM, chronic diastolic heart failure who presents to the emergency department via walk-in accompanied by her for evaluation of cough, congestion, shortness of breath where she reports she was seen by her doctor today and referred to the emergency department. Patient reports she did not come immediately to the emergency department as she needed to wait for her to get home. She reports she was not given dialysis today because she was referred to the emergency department. ROS: See above HPI for pertinent positives & negatives. A total of 10 systems reviewed and were otherwise negative. VITALS:See Below PHYSICAL EXAMINATION: GENERAL: Awake, alert, in no distress HENT: Normocephalic, atraumatic. Boggy nasal turbinates. Oropharynx unremarkable. EYES: Normal conjunctiva. Sclera non-icteric. NECK: Supple. No nuchal rigidity. FROM. No JVD. RESPIRATORY: Wheezing rhonchi bilateral lower lung torres and otherwise clear. CARDIAC: Regular rate, normal rhythm. Extremities warm and well perfused. Pulses equal. ABDOMEN: Soft, non-distended. No tenderness to palpation. No rebound or guarding. No masses. MUSCULOSKELETAL: Chest examination reveals no tenderness. The back is symmetrical on inspection without obvious abnormality. There is no CVA tenderness to palpation. No joint edema. LOWER EXTREMITIES: Calves are equal size bilaterally and non-tender. No edema. No discoloration. NEURO: Normal sensorium. No sensory or motor deficits noted. SKIN: No rash or jaundice noted. Jone Peterson MD Past Med/Surg History Problem List Rhinovirus infection (Acute) Hypoxia (Acute) Hypo-osmolar hyponatremia Insulin-requiring or dependent type II diabetes mellitus Acute on chronic heart failure with preserved ejection fraction Volume overload Bronchospasm with bronchitis, acute Acute bronchitis due to Rhinovirus Acute hypoxic respiratory failure Hypotension of hemodialysis Hyperkalemia Fracture of right tibial plateau Closed right tibial fracture (Acute) ESRD (end stage renal disease) on dialysis (Acute) Fall (Acute) Colon polyps S/P knee surgery (Chronic) DVT prophylaxis Anxiety Anemia Upper GI bleed (Acute) Hematemesis with nausea (Acute) Encounter for pre-operative examination Gastric ulcer COVID-19 (Acute) Acute dyspnea (Acute) Bilateral leg weakness (Acute) Anemia (Acute) Ambulatory dysfunction (Acute) Back pain (Acute) Tremor Obesity ESRD (end stage renal disease) on dialysis (Acute) Mon/Fri/Fri at [facility]. Pacemaker SSS Medtr[employer] follows with dr rosalie Wilks diastolic CHF (congestive heart failure) Depression Hypothyroidism SSS (sick sinus syndrome) Pt admitted for elective pacemaker due to SSS. She underwent procedure without any complications. Monitored over night and discharged home. MINISTERIO on CPAP (Chronic) MDD (major depressive disorder) (Chronic) HLD (hyperlipidemia) (Chronic) HTN (hypertension) (Chronic) Diabetes mellitus, type II (Chronic) IDDM H/O esophagogastroduodenoscopy (Chronic) Medical History ESRD (end stage renal disease) on dialysis Peripheral neuropathy bilateral legs/feet Anxiety History of anesthesia reaction woke up during hysterectomy in 1995 Hiatal hernia Osteoarthritis Degenerative disc disease Chronic back pain Post traumatic stress disorder History of anesthesia reaction when had port inserted needed more medication and could feel everything GERD (gastroesophageal reflux disease) Surgical History History of colonoscopy S/P left knee arthroscopy S/P right knee arthroscopy H/O radical excision of skin lesion melanoma S/P cardiac pacemaker procedure medtronic device, last checked ~2 months ago[address] Follow[address] with Dr Stevenson S/P arteriovenous (AV) fistula creation Right arm History of vitrectomy History of cataract surgery bilateral History of adenoidectomy History of tonsillectomy H/O umbilical hernia repair open (~November 2022 [facility]) --> went to [facility] for rehab therapy for about 2 weeks. S/P dialysis catheter insertion right side of chest (since removed) S/P [place]-BSO H/O hernia repair Hx of gastric bypass History of cholecystectomy Hx of cardiac cath "2012, negative for CAD " Family History Other Colonic polyp GERD (gastroesophageal reflux disease) No family history of adverse response to anesthesia Social History Smoking Status: Never smoker Second Hand Exposure: No; Do You Dip or Chew Tobacco: No; Hx Alcohol Use: No Hx Substance Use: No Preferred Language: Salvadorean Communication Ability: Effective Print Traffic Manager Required: No Beliefs That Will Affect Care: None marital status: Current Living Situation: Spouse Current Living Situation Comment: lives with Other Information That Helps Us Care for You: No Feels Safe at Home: Yes Safety Concerns: Feels Safe At This Time Assistive Devices: Hospital Bed and Walker Allergies Allergies Allergy/AdvReac Type Severity Reaction Status Date / Time CHIDI Inhibitors AdvReac Mild COUGH Verified 02/21/23 10:02 Home Meds Home Medications Medication Instructions Recorded Confirmed bupropion HCl 150 mg tablet,12 hr 150 mg PO DAILY 07/07/24 07/07/24 sustained-release insulin lispro 100 unit/mL 1 sliding scale dose subcut 07/07/24 07/07/24 subcutaneous solution DIRECTED Previous Rx's Medication Instructions Recorded amlodipine 5 mg tablet 5 mg PO QAM 30 days #30 tabs 01/16/24 aspirin 81 mg chewable tablet 81 mg PO HS 30 days #30 tabs 01/16/24 atorvastatin 40 mg tablet 40 mg PO HS 30 days #30 tabs 01/16/24 calcium acetate 667 mg tablet 2,001 mg (3 x 667 mg) PO TIDM 30 01/16/24 days #90 tabs carvedilol 12.5 mg tablet 6.25 mg (1/2 x 12.5 mg) PO AMHS 30 01/16/24 days #15 tabs cholecalciferol (vitamin D3) 25 25 mcg PO PM 30 days #30 tabs 01/16/24 mcg (1,000 unit) tablet (Vitamin D3) citalopram 40 mg tablet 20 mg (1/2 x 40 mg) PO QAM 30 days 01/16/24 #30 tabs cyanocobalamin (vitamin B-12) 1,000 mcg IM Q90D 30 days #1 mL 01/16/24 1,000 mcg/mL injection solution diclofenac sodium 1 % topical gel 2 g topical QID 30 days #100 grams 01/16/24 gabapentin 600 mg tablet 300 mg (1/2 x 600 mg) PO HS 30 01/16/24 days #15 tabs insulin glargine 100 unit/mL (3 16 unit (0.16 mL) subcut QAM 30 01/16/24 mL) subcutaneous pen (Lantus days #4.8 mL Solostar U-100 Insulin) levothyroxine 100 mcg tablet 100 mcg PO QAM 30 days #30 tabs 01/16/24 melatonin 10 mg tablet 10 mg PO HS 30 days #30 tabs 01/16/24 omeprazole 40 mg capsule,delayed 20 mg (1/2 x 40 mg) PO PM 30 days 01/16/24 release #15 caps vit B complx, C-iron 8 mg-folic 1 tab PO PM 30 days #30 tabs 01/16/24 acid 800 mcg-D3 1,000 unit-zinc tablet (ProRenal) Results & Data (ED) Vital Signs Vital Signs - 24 hr 07/07/24 13:38 07/07/24 13:40 07/07/24 13:46 Temperature 36.3 C L Temperature Source Temporal Artery Scan Pulse Rate 82 Pulse Rate [Right Brachial] Pulse Rhythm [Right Brachial] Pulse Strength [Right Brachial] Respiratory Rate 18 Respiratory Effort / Characteristics Non-Labored Spontaneous Respiratory Depth Normal Respiratory Pattern Regular Blood Pressure 100/66 Blood Pressure [Right Arm] Blood Pressure Mean 77 Blood Pressure Mean [Right Arm] Blood Pressure Position [Right Arm] Pulse Oximetry 93 Oxygen Delivery Method Nasal Cannula Room Air Nasal Cannula Oxygen Flow Rate 2 2 Sepsis Recent Fever Within 48 Hours No Sepsis New/Unexplained Change in Mental Status N/A Sepsis Action Taken by Nursing No Action Required 07/07/24 13:46 07/07/24 15:32 07/07/24 15:36 Temperature Temperature Source Pulse Rate 81 Pulse Rate [Right Brachial] 82 Pulse Rhythm [Right Brachial] Regular Pulse Strength [Right Brachial] Normal Respiratory Rate 22 Respiratory Effort / Characteristics Non-Labored Respiratory Depth Normal Respiratory Pattern Regular Blood Pressure Blood Pressure [Right Arm] 122/73 Blood Pressure Mean Blood Pressure Mean [Right Arm] 89 Blood Pressure Position [Right Arm] Lying Pulse Oximetry 98 96 Oxygen Delivery Method Nasal Cannula Nasal Cannula Oxygen Flow Rate 2 2 Sepsis Recent Fever Within 48 Hours Sepsis New/Unexplained Change in Mental Status Sepsis Action Taken by Nursing 07/07/24 17:00 07/07/24 19:00 07/07/24 19:29 Temperature Temperature Source Pulse Rate 62 Pulse Rate [Right Brachial] 65 61 Pulse Rhythm [Right Brachial] Regular Regular Pulse Strength [Right Brachial] Normal Normal Respiratory Rate 22 20 Respiratory Effort / Characteristics Non-Labored Non-Labored Respiratory Depth Normal Normal Respiratory Pattern Regular Regular Blood Pressure Blood Pressure [Right Arm] 139/79 Blood Pressure Mean Blood Pressure Mean [Right Arm] 99 Blood Pressure Position [Right Arm] Lying Pulse Oximetry 96 96 Oxygen Delivery Method Nasal Cannula Nasal Cannula Oxygen Flow Rate 2 2 Sepsis Recent Fever Within 48 Hours Sepsis New/Unexplained Change in Mental Status Sepsis Action Taken by Nursing Laboratory Data Attestation: I reviewed the patient's lab results. 07/07/24 15:57 07/07/24 16:55 Lab Results 07/07/24 07/07/24 07/07/24 Range/Units 15:39 15:57 16:55 WBC 8.17 (4.8-10.8) K/ul RBC 3.90 L (4.20-5.40) M/uL Hgb 11.5 L (12.0-16.0) g/dl Hct 37.3 (37.0-47.0) % MCV 95.6 (80.0-100.0) fL MCH 29.5 (25.0-34.0) pg MCHC 30.8 L (32.0-36.0) g/dL RDW Std Deviation 59.5 H (36.4-46.3) fL RDW Coeff of [place] 17.2 H (11.5-14.5) % Plt Count 234 (130-400) K/uL MPV 10.2 (9.4-12.4) fL Immature Gran % (Auto) 0.4 % Neut % (Auto) 61.1 % Lymph % (Auto) 19.3 % [place] % (Auto) 14.7 % Eos % (Auto) 3.3 % Baso % (Auto) 1.2 % Neut # (Auto) 4.99 (1.40-6.50) K/uL Lymph # (Auto) 1.58 (1.20-3.40) K/uL [place] # (Auto) 1.20 H (0.11-0.59) K/uL Eos # (Auto) 0.27 (0.00-0.50) K/uL Baso # (Auto) 0.10 (0.00-0.20) K/uL Immature Gran # (Auto) 0.03 (0.01-0.20) K/uL PT Cancelled 10.8 INR Cancelled 1.0 APTT Cancelled 29 PTT Ratio Cancelled 1.1 Sodium 127 L (136-145) mmol/L Potassium TNP 5.7 H Chloride 91 L (98-107) mmol/L Carbon Dioxide 25 (21-32) mmol/L Anion Gap 11 (3-11) BUN 45 H (6-23) mg/dl Creatinine 6.83 H* (0.6-1.2) mg/dl Est Cr Clr Drug Dosing 9.6 ml/min eGFR 6.23 BUN/Creatinine Ratio 6.6 L (10-20) Glucose 286 H (70-99(Fasting)) mg/dl Calcium 9.0 (8.6-10.3) mg/dl Phosphorus 6.5 H (2.5-4.9) mg/dl Magnesium 2.4 (1.7-2.4) mg/dl Total Bilirubin 0.5 (0.2-1.0) mg/dl AST TNP 20 ALT 18 (7-52) U/L Alkaline Phosphatase 133 H (34-104) U/L Troponin I High Sens 19.0 H (0-14) pg/ml Total Protein 7.2 (6.0-8.3) gm/dl Albumin 3.6 (3.4-5.0) gm/dl Globulin 3.6 (2.5-4.0) gm/dl Albumin/Globulin Ratio 1.0 (0.9-2) Procalcitonin Cancelled 0.84 H Adenovirus (PCR) Not Detected (NotDetected) B. pertussis DNA (PCR) Not Detected (NotDetected) B.parapertussis DNA PCR Not Detected (NotDetected) C. pneumoniae DNA (PCR) Not Detected (NotDetected) Coronavirus OC43 (PCR) Not Detected (NotDetected) Coronavirus HKU1 (PCR) Not Detected (NotDetected) Coronavirus 229E (PCR) Not Detected (NotDetected) SARS-CoV-2 (PCR) Not Detected (NotDetected) Coronavirus NL63 (PCR) Not Detected (NotDetected) Human Metapneumovir PCR Not Detected (NotDetected) Influenza Type A (PCR) Not Detected (NotDetected) Influenza Type B (PCR) Not Detected (NotDetected) M. pneumoniae (PCR) Not Detected (NotDetected) Parainfluenza 1 (PCR) Not Detected (NotDetected) Parainfluenza 2 (PCR) Not Detected (NotDetected) Parainfluenza 3 (PCR) Not Detected (NotDetected) Parainfluenza 4 (PCR) Not Detected (NotDetected) RSV (PCR) Not Detected (NotDetected) Entero/Rhino (PCR) DETECTED A (NotDetected) Administered Medications Aspirin (Aspirin 81 Mg Chew) 81 mg PO HS [facility] Stop: 08/06/24 22:58 Last Admin: 07/07/24 23:59 Dose: 81 mg Documented By: TKB Atorvastatin Calcium (Atorvastatin 40 Mg Tab) 40 mg PO HS [facility] Stop: 08/06/24 22:58 Last Admin: 07/07/24 23:59 Dose: 40 mg Documented By: TKSaeed Carvedilol (Carvedilol 6.25 Mg Tab) 6.25 mg PO AMHS PAULA Stop: 08/06/24 22:58 Last Admin: 07/07/24 23:59 Dose: 6.25 mg Documented By: TKB Gabapentin (Gabapentin 300 Mg Cap) 300 mg PO HS PAULA Stop: 08/06/24 22:58 Last Admin: 07/08/24 00:00 Dose: 300 mg Documented By: TKB Guaifenesin (Guaifenesin 600 Mg Tabcr) 600 mg PO Q12 PAULA Stop: 08/06/24 22:58 Last Admin: 07/08/24 00:00 Dose: 600 mg Documented By: TKSaeed Heparin Sodium (Porcine) (Heparin Sod 5,000 Unit/0.5 Ml Vial) 5,000 units SQ Q8 PAULA Stop: 08/06/24 22:58 Last Admin: 07/08/24 05:30 Dose: 5,000 units Documented By: TKSaeed Admin: 07/07/24 23:58 Dose: 5,000 units Documented By: NIRALI Insulin Aspart (Insulin Aspart Per Unit Charge) 0 units SC ACHS PAULA Stop: 08/06/24 22:58 Last Admin: 07/08/24 00:04 Dose: 13 units Documented By: NIRALI Co-signed By: MATTHEW Levothyroxine Sodium (Levothyroxine Sodium 100 Mcg Tablet) 100 mcg PO DAILYBB PAULA Stop: 08/07/24 06:29 Last Admin: 07/08/24 05:30 Dose: 100 mcg Documented By: NIRALI Melatonin (Melatonin 3 Mg Tab) 9 mg PO HS PAULA Stop: 08/06/24 22:58 Last Admin: 07/07/24 23:58 Dose: 9 mg Documented By: NIRALI Pantoprazole Sodium (Pantoprazole 40 Mg Tab) 40 mg PO PM PAULA Stop: 08/06/24 22:58 Last Admin: 07/08/24 00:01 Dose: 40 mg Documented By: NIRALI Vitamin B Complex/Folic Acid (Nephrocaps) 1 cap PO PM PAULA Stop: 08/06/24 22:58 Last Admin: 07/08/24 00:01 Dose: 1 cap Documented By: NIRALI Vitamin D (Cholecalciferol 25 Mcg (1000 Units) Tab) 25 mcg PO PM PAULA Stop: 08/06/24 22:58 Last Admin: 07/07/24 23:59 Dose: 25 mcg Documented By: NIRALI Discontinued Medications Albuterol (Albut/Ipratrop 3mg/0.5mg Neb 3 Ml Vial) 3 ml NEB NOW STA; Protocol Stop: 07/07/24 15:51 Last Admin: 07/07/24 16:02 Dose: 3 ml Documented By: ALL Albuterol (Albut/Ipratrop 3mg/0.5mg Neb 3 Ml Vial) 3 ml NEB NOW ONE; Protocol Stop: 07/07/24 19:55 Last Admin: 07/07/24 20:21 Dose: 3 ml Documented By: ALL Furosemide (Furosemide 40 Mg/4 Ml Vial) 100 mg IV ONE ONE Stop: 07/07/24 19:42 Last Admin: 07/07/24 20:21 Dose: 100 mg Documented By: ALL Guaifenesin (Guaifenesin 600 Mg Tabcr) 600 mg PO NOW STA Stop: 07/07/24 15:51 Last Admin: 07/07/24 16:02 Dose: 600 mg Documented By: ALL Acetaminophen (Ofirmev) 1,000 mg in 100 mls @ 400 mls/hr IV NOW STA Stop: 07/07/24 16:04 Last Infusion: 07/07/24 16:29 Dose: Infused Documented By: Admin: 07/07/24 16:02 Dose: 400 mls/hr Documented By: ALL Insulin Human Regular 5 units/ (Syringe) 5 mls @ 100 mls/min IV ONE STA Stop: 07/07/24 23:46 Last Admin: 07/08/24 00:06 Dose: 100 mls/min Documented By: NIRALI Co-signed By: MATTHEW Insulin Aspart (Insulin Aspart Per Unit Charge) 5 units SC NOW STA Stop: 07/08/24 03:27 Last Admin: 07/08/24 03:34 Dose: 5 units Documented By: NIRALI Co-signed By: ALICIA Methylprednisolone (Methylprednisolone 125 Mg/2 Ml Vial) 60 mg IV NOW STA Stop: 07/07/24 15:51 Last Admin: 07/07/24 16:02 Dose: 60 mg Documented By: ALL Sodium Chloride (Sodium Chloride 0.65% Na Soln 45 Ml ([place])) 2 sprays NA NOW ONE Stop: 07/07/24 15:51 Last Admin: 07/07/24 16:03 Dose: 2 sprays Documented By: ALL Imaging Data Radiologist's Impression: Chest X-Ray 07/07/24 13:46 XR chest 1V not portable CLINICAL HISTORY: Chest pain, nonspecific COMPARISON STUDY: Chest radiograph January 09, 2024. Chest CT February 23, 2013. FINDINGS: Left subclavian pacemaker is unchanged in position. There is moderate cardiomegaly. Pulmonary vascular congestion is noted. There is minimal right basilar opacity. There is no pneumothorax or pleural effusion. IMPRESSION: Cardiomegaly with pulmonary vascular congestion. ACT 112: Negative or not required by law. Electronically signed by: Mihir Loaiza M.D. 07/07/2024 2:51 PM Discharge Plan Visit Data Chief Complaint: Shortness of Breath/Dyspnea Stated Complaint: LOW OXYGEN, POSSIBLE PNUEMONIA, COUGH, SOB, WEAK ED Provider: Jone Peterson Discharge Problem: Hypoxia, ESRD (end stage renal disease) on dialysis, Rhinovirus infection Patient Disposition: Admitted As Inpatient Discharge Instructions Interventions: ED Discharge Assessment Last Done: 07/07/24 23:18
[2024-07-07] MEDS: methylPREDNISolone 125 MG/2 ML VIAL IV STA (16:02)
[2024-07-07] MEDS: ACETAMINOPHEN 1,000 MG/100 ML VIAL IV STA (16:02)
[2024-07-07] MEDS: ALBUT/IPRATROP 3MG/0.5MG NEB 3 ML VIAL NEB STA (16:02)
[2024-07-07] MEDS: guaiFENesin 600 MG TABCR PO STA (16:02)
[2024-07-07] MEDS: SODIUM CHLORIDE 0.65% NA SOLN 45 ML (OCEAN) ONE (16:03)
[2024-07-07 16:23] LABS: Basophils % (auto) 1.2 %; Eosinophils # (auto) 0.27 K/uL (0.00-0.50); Eosinophils % (auto) 3.3 %; Hematocrit (blood only) 37.3 % (37.0-47.0); Hemoglobin 11.5 g/dl (12.0-16.0); Immature Granulocytes # (auto) 0.03 K/uL (0.01-0.20); Immature Granulocytes % (auto) 0.4 %; Lymphocytes # (auto) 1.58 K/uL (1.20-3.40); Lymphocytes % (auto) 19.3 %; Mean Corpuscular Hemoglobin 29.5 pg (25.0-34.0); Mean Corpuscular Hgb Conc 30.8 g/dL (32.0-36.0); Mean Corpuscular Volume 95.6 fL (80.0-100.0); Mean Platelet Volume 10.2 fL (9.4-12.4); Monocytes % (auto) 14.7 %; Neutrophils # (auto) 4.99 K/uL (1.40-6.50); Neutrophils % (auto) 61.1 %; Platelet Count 234 K/uL (130-400); RDW Coefficient of Variation 17.2 % (11.5-14.5); RDW Standard Deviation 59.5 fL (36.4-46.3); White Blood Count 8.17 K/ul (4.8-10.8)
[2024-07-07 16:33] LABS: Alanine Aminotransferase 18 U/L (7-52); Albumin Level 3.6 gm/dl (3.4-5.0); Alkaline Phosphatase 133 U/L (34-104); Anion Gap 11 (3-11); BUN Creatinine Ratio 6.6 (10-20); Bilirubin,Total 0.5 mg/dl (0.2-1.0); Blood Urea Nitrogen 45 mg/dl (6-23); Carbon Dioxide 25 mmol/L (21-32); Chloride 91 mmol/L (98-107); Creatinine Clr Calc Pharmacy 9.6 ml/min; Globulin 3.6 gm/dl (2.5-4.0); Glucose 286 mg/dl (70-99(Fasting)); Magnesium 2.4 mg/dl (1.7-2.4); Phosphorus 6.5 mg/dl (2.5-4.9); Sodium 127 mmol/L (136-145); Total Protein 7.2 gm/dl (6.0-8.3)
[2024-07-07 16:48] LABS: Adenovirus PCR Not Detected (NotDetected); Bordetella parapertussis PCR Not Detected (NotDetected); Bordetella pertussis PCR Not Detected (NotDetected); Chlamydia pneumoniae PCR Not Detected (NotDetected); Coronavirus 229E PCR Not Detected (NotDetected); Coronavirus CoV-2 (COVID19)PCR Not Detected (NotDetected); Coronavirus HKU1 PCR Not Detected (NotDetected); Coronavirus NL63 PCR Not Detected (NotDetected); Coronavirus OC43PCR Not Detected (NotDetected); Human Metapneumovirus PCR Not Detected (NotDetected); Influenza A PCR Not Detected (NotDetected); Influenza B PCR Not Detected (NotDetected); Mycoplasma pneumoniae PCR Not Detected (NotDetected); Parainfluenza Virus 1 PCR Not Detected (NotDetected); Parainfluenza Virus 2 PCR Not Detected (NotDetected); Parainfluenza Virus 3 PCR Not Detected (NotDetected); Parainfluenza Virus 4 PCR Not Detected (NotDetected); Respiratory Syncytial VirusPCR Not Detected (NotDetected); Rhinovirus/Enterovirus PCR DETECTED (NotDetected)
[2024-07-07 17:36] LABS: Potassium 5.7 mmol/L (3.5-5.1)
[2024-07-07 17:56] LABS: Partial Thromboplastin Ratio 1.1; Partial Thromboplastin Time 29 Seconds (21-31); Prothrombin Time 10.8 Seconds (9.0-12.0)
--- NOTE | 2024-07-07 20:16 | History & Physical Report ---
Date of Service July 07, 2024 Assessment & Plan (1) Acute hypoxic respiratory failure: (2) Acute bronchitis due to Rhinovirus: (3) Bronchospasm with bronchitis, acute: (4) Volume overload: (5) Acute on chronic heart failure with preserved ejection fraction: (6) Hyperkalemia: (7) ESRD (end stage renal disease) on dialysis: (8) Hypothyroidism: (9) MINISTERIO on CPAP: (10) Insulin-requiring or dependent type II diabetes mellitus: (11) Hypo-osmolar hyponatremia: Plan Patient with acute hypoxic respiratory failure due to rhinovirus bronchitis and volume overload/heart failure preserved ejection fraction in the setting of end- stage renal disease on hemodialysis missed Friday's dialysis session. Care for in the MedSurg unit Support with oxygen Antitussives and mucolytic's Nebulizer treatments with DuoNeb as needed Prednisone 40 mg for short course of most 5 days Consult nephrology for ongoing hemodialysis needs Give 1 dose of IV Lasix 100 mg tonight for her volume overload, patient still does make some urine also this will help with her mild hyperkalemia Update echocardiogram last echocardiogram was in 2020 ejection fraction normal at that time. Check TSH Continue home Lantus, add sliding scale short acting insulin Continue other home medications as ordered History of Present Illness Chief Complaint: Shortness of breath, weak, cough and chills Primary Care Provider: Luis Fernando Rojas MD Patient is a 63-year-old female with diabetes and end-stage renal disease on hemodialysis reports on Friday started feeling ill with a cough and chills. She denies any documented fever. She also started to get progressively short of breath. Today she made an acute appointment with her PCP to be evaluated. In the office she reportedly had an O2 sat of 86%. She was struck to go to the emergency room. She missed her usual hemodialysis session due to this. She actually went home and came to the emergency room later in the evening when her returned home. In the emergency room continue to be hypoxic with any type of movement. Chest x-ray showed some congestion and volume overload and sh e tested positive for rhinovirus. Patient was referred to our service for her ongoing oxygen needs. Time my evaluation the patient was feeling a bit more comfortable on oxygen. She confirms the above history. Again she denied any fevers. No purulent sputum. No new problems with her bowels or bladder. She does still make some urine. She confirms that she did miss her hemodialysis session today due to the fact that she had gone to her PCP for sick visit. She denies any chest pain or tightness. States that she has never needed inhalers or nebulizer treatments before. Does complain of some generalized malaise and fatigue in addition to her severe cough. Allergies Allergy/AdvReac Type Severity Reaction Status Date / Time CHIDI Inhibitors AdvReac Mild COUGH Verified 02/21/23 10:02 Home Medications Medication Instructions Recorded Confirmed Type amlodipine 5 mg tablet 5 mg PO QAM 30 days #30 tabs 01/16/24 07/07/24 Rx aspirin 81 mg chewable tablet 81 mg PO HS 30 days #30 tabs 01/16/24 07/07/24 Rx atorvastatin 40 mg tablet 40 mg PO HS 30 days #30 tabs 01/16/24 07/07/24 Rx calcium acetate 667 mg tablet 2,001 mg (3 x 667 mg) PO TIDM 30 01/16/24 07/07/24 Rx days #90 tabs carvedilol 12.5 mg tablet 6.25 mg (1/2 x 12.5 mg) PO AMHS 30 01/16/24 07/07/24 Rx days #15 tabs cholecalciferol (vitamin D3) 25 25 mcg PO PM 30 days #30 tabs 01/16/24 07/07/24 Rx mcg (1,000 unit) tablet (Vitamin D3) citalopram 40 mg tablet 20 mg (1/2 x 40 mg) PO QAM 30 days 01/16/24 07/07/24 Rx #30 tabs cyanocobalamin (vitamin B-12) 1,000 mcg IM Q90D 30 days #1 mL 01/16/24 07/07/24 Rx 1,000 mcg/mL injection solution diclofenac sodium 1 % topical gel 2 g topical QID 30 days #100 grams 01/16/24 07/07/24 Rx gabapentin 600 mg tablet 300 mg (1/2 x 600 mg) PO HS 30 01/16/24 07/07/24 Rx days #15 tabs insulin glargine 100 unit/mL (3 16 unit (0.16 mL) subcut QAM 30 01/16/24 07/07/24 Rx mL) subcutaneous pen (Lantus days #4.8 mL Solostar U-100 Insulin) levothyroxine 100 mcg tablet 100 mcg PO QAM 30 days #30 tabs 01/16/24 07/07/24 Rx melatonin 10 mg tablet 10 mg PO HS 30 days #30 tabs 01/16/24 07/07/24 Rx omeprazole 40 mg capsule,delayed 20 mg (1/2 x 40 mg) PO PM 30 days 01/16/24 07/07/24 Rx release #15 caps vit B complx, C-iron 8 mg-folic 1 tab PO PM 30 days #30 tabs 01/16/24 07/07/24 Rx acid 800 mcg-D3 1,000 unit-zinc tablet (ProRenal) bupropion HCl 150 mg tablet,12 hr 150 mg PO DAILY 07/07/24 07/07/24 History sustained-release insulin lispro 100 unit/mL 1 sliding scale dose subcut 07/07/24 07/07/24 History subcutaneous solution DIRECTED Past Med/Surg History Problem List Hypo-osmolar hyponatremia Insulin-requiring or dependent type II diabetes mellitus Acute on chronic heart failure with preserved ejection fraction Volume overload Bronchospasm with bronchitis, acute Acute bronchitis due to Rhinovirus Acute hypoxic respiratory failure Hypotension of hemodialysis Hyperkalemia Fracture of right tibial plateau Closed right tibial fracture (Acute) ESRD (end stage renal disease) on dialysis (Acute) Fall (Acute) Colon polyps S/P knee surgery (Chronic) DVT prophylaxis Anxiety Anemia Upper GI bleed (Acute) Hematemesis with nausea (Acute) Encounter for pre-operative examination Gastric ulcer COVID-19 (Acute) Acute dyspnea (Acute) Bilateral leg weakness (Acute) Anemia (Acute) Ambulatory dysfunction (Acute) Back pain (Acute) Tremor Obesity ESRD (end stage renal disease) on dialysis (Acute) Mon/Fri/Fri at [facility] in [place]. Pacemaker SSS [employer] follows with dr wiggins Chronic diastolic CHF (congestive heart failure) Depression Hypothyroidism SSS (sick sinus syndrome) Pt admitted for elective pacemaker due to SSS. She underwent procedure without any complications. Monitored over night and discharged home. MINISTERIO on CPAP (Chronic) MDD (major depressive disorder) (Chronic) HLD (hyperlipidemia) (Chronic) HTN (hypertension) (Chronic) Diabetes mellitus, type II (Chronic) IDDM H/O esophagogastroduodenoscopy (Chronic) Medical History ESRD (end stage renal disease) on dialysis Peripheral neuropathy Anxiety History of anesthesia reaction Hiatal hernia Osteoarthritis Degenerative disc disease Chronic back pain Post traumatic stress disorder History of anesthesia reaction GERD (gastroesophageal reflux disease) Surgical History History of colonoscopy S/P left knee arthroscopy S/P right knee arthroscopy H/O radical excision of skin lesion S/P cardiac pacemaker procedure S/P arteriovenous (AV) fistula creation History of vitrectomy History of cataract surgery History of adenoidectomy History of tonsillectomy H/O umbilical hernia repair S/P dialysis catheter insertion S/P JERSEY-BSO H/O hernia repair Hx of gastric bypass History of cholecystectomy Hx of cardiac cath Family History Other Colonic polyp GERD (gastroesophageal reflux disease) No family history of adverse response to anesthesia Social History Smoking Status: Never smoker Second Hand Exposure: No; Do You Dip or Chew Tobacco: No; Hx Alcohol Use: No Hx Substance Use: No Preferred Language: Somali Communication Ability: Effective 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 Sclera clear Neck: Soft, no adenopathy Lungs: Decreased breath sounds bilaterally, expiratory wheezes throughout, rales at bases bilaterally CV: S1-S2, regular Abdomen: Soft, nontender, nondistended Extremities: 2+ pitting edema lower extremities Musculoskeletal: No significant joint tenderness Neuro: No focal deficits, generalized weakness Psych: Cooperative, normal mood Results & Data Results & Data Vital Signs (Past 12 Hours) Vital Signs Temp Pulse Pulse Resp BP BP Pulse Ox 07/07/24 19:29 62 07/07/24 19:00 61 20 96 07/07/24 17:00 65 22 139/79 96 07/07/24 15:36 81 07/07/24 15:32 82 22 122/73 96 07/07/24 13:46 98 07/07/24 13:46 07/07/24 13:40 36.3 C L 82 18 100/66 93 07/07/24 13:38 O2 Del Method O2 Flow Rate 07/07/24 19:29 07/07/24 19:00 Nasal Cannula 2 07/07/24 17:00 Nasal Cannula 2 07/07/24 15:36 07/07/24 15:32 Nasal Cannula 2 07/07/24 13:46 Nasal Cannula 2 07/07/24 13:46 Nasal Cannula 2 07/07/24 13:40 Room Air 07/07/24 13:38 Nasal Cannula 2 Diagnostic Findings Reviewed imaging, laboratory and diagnostic studies. Pertinent findings as below. Personally reviewed chest x-ray, no consolidative pneumonia or infiltrate, some pulmonary congestion, pacemaker in place Personally reviewed EKG, paced rhythm WBCs 8.7 Hemoglobin 11.5 Sodium 127 Potassium 5.7 Chloride 91 Creatinine 6.83 Glucose 286 Troponin 19.0 Procalcitonin 0.84 Respiratory viral panel positive for rhinovirus Reviewed outside EMR Echocardiogram 2020 ejection fraction 60-65%
[2024-07-07] MEDS: ALBUT/IPRATROP 3MG/0.5MG NEB 3 ML VIAL NEB ONE (20:21)
[2024-07-07] MEDS: FUROSEMIDE 40 MG/4 ML VIAL IV ONE (20:21)
[2024-07-07] MEDS ORDERED: DEXTROSE 50% 50 ML SYRINGE IV PRN (22:59)
[2024-07-07] MEDS ORDERED: HYDROcodone/HOMATROPINE SYRUP 5MG/1.5MG 5ML UDP PO PRN (22:59)
[2024-07-07] MEDS ORDERED: CYANOCOBALAMIN 1000 MCG/ML VIAL IM SCH (22:59)
[2024-07-07] MEDS ORDERED: POLYETHYLENE (MIRALAX) 17 GM PACK PO PRN (22:59)
[2024-07-07] MEDS ORDERED: CARBOHYDRATES FOR HYPOGLYCEMIA PO PRN (22:59)
[2024-07-07] MEDS ORDERED: ONDANSETRON INJ 2 MG/ML 2 ML VIAL IV PRN (22:59)
[2024-07-07] MEDS ORDERED: GLUCAGON FOR INJ 1 MG VIAL SQ PRN (22:59)
[2024-07-07] MEDS ORDERED: GLUCOSE 10 TAB/TUBE PO PRN (22:59)
[2024-07-07] MEDS ORDERED: GLUCOSE 40% GEL 15 GM TUBE PO PRN (22:59)
[2024-07-07] MEDS ORDERED: CALCIUM ACETATE 667 MG CAP/TAB PO PRN (23:29)
[2024-07-07] MEDS: MELATONIN 3 MG TAB PO SCH (23:58)
[2024-07-07] MEDS: HEPARIN SOD 5,000 UNIT/0.5 ML VIAL SQ SCH (23:58)
[2024-07-07] MEDS: ATORVASTATIN 40 MG TAB PO SCH (23:59)
[2024-07-07] MEDS: CHOLECALCIFEROL 25 MCG (1000 UNITS) TAB PO SCH (23:59)
[2024-07-07] MEDS: ASPIRIN 81 MG CHEW PO SCH (23:59)
[2024-07-07] MEDS: carvediloL 6.25 MG TAB PO SCH (23:59)
[2024-07-08] MEDS: guaiFENesin 600 MG TABCR PO SCH
[2024-07-08] MEDS: GABAPENTIN 300 MG CAP PO SCH
[2024-07-08] MEDS: PANTOprazole 40 MG TAB PO SCH (00:01)
[2024-07-08] MEDS: NEPHROCAPS PO SCH (00:01)
[2024-07-08] MEDS: INSULIN ASPART PER UNIT CHARGE SC SCH (00:04)
[2024-07-08] MEDS: INSULIN HUMAN REGULAR PER UNIT 5 UNITS in SYRINGE 4.95 ML IV STA (00:06)
--- OUTSIDE RECORDS SUMMARY | 2024-07-08 02:50 | External Medical Summary | Summary of Care ---
Author Name Unknown Organization [facility] Address [address] [place] [address] Phone [phone] Care Team Providers Care Certified Midwife Name Role Phone Luis Fernando Rojas MD Primary Care Provider [phone] Reason for Visit * Reason Onset Date Comments [facility]: Maintenance 07/05/2024 Encounter Details Date Type Department Care Team (Late st Contact Info) Description 07/05/2024 10:00 AM EST Scheduled Telephone [facility], [facility] [address] [facility] [place] [address] Heidi Garcia, RN [address] [facility] [place] [address] Allergies Active Allergy Reactions Criticality Noted Date Comments Salvador Inhibitors Other (Please comment),Cough High HyperKalemia documented as of this encounter (statuses as of 07/05/2024) Medications Melatonin 10 MG Tablet Take 12 mg by mouth at bedtime. Active Aspirin 81 MG Oral Tablet ChewableIndicati [...] CPAP every night at bedtime. 12 Active ProRenal + D Oral Tablet Take by mouth 1 Tablet daily . 02/29/20 22 Active Vitamin D 125 MCG (5000 UT) Oral Capsule Take 1 Capsule by mouth every morning. Active Childrens Chewable [...] mouth every 6 hours as needed. Active Calcium Citrate-Vitamin D 315-5 MG-MCG Oral [...] daily with insulin 400 Each 3 3 5:15 PM EDT 05/01/20 23 Active Calcium Acetate (Phos Binder) 667 MG Oral Capsule (Phoslo) TAKE THREE CAPSULES BY MOUTH WITH EACH MEAL AND TWO CAPSULES WITH SNACKS 1300 Capsule 3 4 3:37 PM EDT 05/01/20 23 Active Levothyroxine Sodium 100 MCG Oral Tablet (Levoxyl)Indicat ions:Hypothyroid ism, unspecified type TAKE 1 TABLET BY MOUTH DAILY AT LEAST 30 MINUTES PRIOR TO FIRST MEAL OF THE DAY OR OTHER MEDICATIONS 90 Tablet 3 4 2:12 PM EDT 09/10/19 24 Active Gabapentin 300 MG Oral Capsule (Neurontin) Take 1 Capsule by mouth at bedtime. Follow up with your primary care provider for further management. 90 Capsule 3 4 11:42 AM EDT 09/10/19 24 Active Insulin Glargine Solostar 100 UNIT/ML Subcutaneous Solution Pen-injector (Morgan Zhou)Indicati ons:Type 2 diabetes mellitus with hemoglobin A1c goal of less than 7.0% (HCC) Inject 16 units subcutaneously every day. 30 mL 4 10/28/19 24 Active Insulin Lispro (1 Unit Dial) 100 UNIT/ML Subcutaneous Solution Pen-injector (HumaLOG KwikPen)Indicati ons:Type 2 diabetes mellitus with hemoglobin A1c goal of less than 7.0% ([facility]) Inject 14 units with breakfast, 4 units with lunch and 16 units with supper + CF 1:25 over 150. Max dose of 45 units per day 30 mL 4 10/28/19 24 Active Diclofenac Sodium 1 % External Gel (Voltaren) Apply topically to affected area 3 times a day as needed for Pain. 100 g 2 4 2:10 PM EDT 02/17/20 24 Active Citalopram Hydrobromide 20 MG Oral Tablet (CeleXA) Take 1 Tablet by mouth in the morning. Active amLODIPine Besylate 5 MG Oral Tablet (Norvasc) TAKE ONE TABLET BY MOUTH EVERY DAY IN THE MORNING 90 Tablet 1 4 11:01 AM EST 03/17/20 24 025 Active Omeprazole 20 MG Oral Capsule Delayed Release (PriLOSEC)Indica tions:Gastroesop hageal reflux disease without esophagitis Take 1 Capsule by mouth in the morning. 100 Capsule 3 4 8:08 AM EST 03/18/20 24 Active Carvedilol 12.5 MG Oral Tablet (Coreg)Indicatio ns:HTN, goal below 140/90 Take 1 Tablet by mouth in the morning and 1 Tablet before bedtime. 180 Tablet 4 4 11:01 AM EST 03/20/20 24 Active Atorvastatin Calcium 40 MG Oral Tablet (Lipitor)Indicat ions:Dyslipidemi a, goal LDL below 100 Take 0.5 Tablets by mouth in the morning. 03/23/20 24 Active HealogicaToRF Biocidics Verio In Vitro Strip (Glucose Blood) To test blood sugar 4 times daily. 400 Strip 1 4 6:47 AM EDT 04/20/20 24 Active OneTouch Delica Lancets 33G To test blood sugar 4 times daily. 400 Each 1 4 6:47 AM EDT 04/20/20 24 Active HealogicaTouch Verio w/Device Kit Use as directed. 1 Kit 4 6:47 AM EDT 04/20/20 24 Active buPROPion HCl ER (SR) 150 MG Oral Tablet Extended Release 12 Hour (Wellbutrin SR) Take 1 Tablet by mouth every evening. 90 Tablet 4 1:04 PM EST 06/02/20 24 Active Fluticasone Propionate 50 MCG/ACT Nasal Suspension (Flonase) Administer 2 Sprays into each nostril in the morning. 16 g 1 06/22/20 Active methylPREDNISolo ne 4 MG Oral Tablet Therapy Pack (Medrol Dosepack) follow package directions 21 Tablet 07/01/20 24 Active Hospital, Clinic, or Other Facility Administered Medication Ordered Dose Route Frequency Start Date End Date Status vitamin b-12 (Cyanocobalamin) inj 1,000 mcgIndications:S/P gastric bypass 1000 mcg IM [id number] 10/15/2022 07/19/2025 Active vitamin b-12 (Cyanocobalamin) inj 1,000 mcgIndications:Morbid obesity with BMI of 40.0-44.9, adult (HCC),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 [id number] 10/17/2023 12/11/19 25 Active documented as of this encounter (statuses as of 07/05/2024) Active Problems Problem Noted Date Diagnosed Date Major depressive disorder, single episode, moder ate 03/23/2024 Type 2 diabetes mellitus wit h right eye affected by proliferative 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 edema, with long-term current use of insulin 03/23/2024 Recurrent ventral incisional hernia 12/11/2022 Assessment & Plan (01/09/2023 4:53 PM EDT): Status post repair on 12/11 -small open area on incision draining serous fluid. Dressing changed. No surrounding erythema to suggest cellulitis. -mild nausea last night. No vomiting. Nausea has dissipated on its own. Bowel movements have been regular. 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 10/15/2022 [facility] OTHER*[id number] 01/01/2022 S/P gastric bypass 01/01/2022 [address]ialysis AV fistula malfunction 11/27/2021 Marginal ulcer 05/07/2021 Assessment & Plan (05/07/2021 11:02 AM EDT): Patient had epigastric pain and hematemesis, found [...] Continue 20 mg daily Aortic atherosclerosis 05/07/2021 Assessment & Plan (05/07/2021 10:59 AM EDT): Found on CT of the abdomen and [...] End stage renal disease on dialysis 03/14/2021 Assessment & Plan (03/23/2024 1:48 PM EDT): Compliant with dialysis Has fistulogram a week today 03/30 as having some issues at HD sessions with current fistula Assessment & Plan (05/07/2021 11:01 AM EDT): [facility] since January, Dr. Magallanes. Renae-W-Briana [...] with long-term current use of insulin 11/28/2020 Assessment & Plan (03/21/2023 8:42 AM EDT): Blood sugars have been fairly well-controlled. Current [...] DM Secondary Prevention Moderate-High Intensity Statin Aspirin Assessment & Plan (01/09/2023 4:51 PM EDT): Blood sugars have been fairly well-controlled. Current Status: "Stable" for patient / At or near baseline Degree of Condition Awareness: Demonstrates very good awareness of condition, disease course, and prognosis "RED FLAG" Diabetic symptoms: o none Goal HgbA1c o <7 Diabetic Complications o Vascular (examples: PVD, PAD, CAD, CVA) o Renal (example: CKD, Proteinuria, Dialysis) Medication Regimen o Basal/Long Acting Insulin o Bolus/Short Acting Insulin DM Secondary Prevention o Moderate-High Intensity Statin o Aspirin Assessment & Plan (05/07/2021 10:56 AM EDT): Hemoglobin AIC Results: Lab Results Component Value Date/Time HEMOGLOBIN A1C - [facility] 6.1 (H) 04/25/2021 09:36 AM HEMOGLOBIN A1C - [facility] 7.4 (H) 11/08/2020 11:57 AM HEMOGLOBIN A1C - [facility] 8.1 (H) 09/20/2020 09:02 AM HEMOGLOBIN A1C - [facility] 7.6 (H) 04/26/2020 09:24 AM HEMOGLOBIN A1C - [facility] 7.4 (H) 03/17/2020 09:21 AM HEMOGLOBIN A1C - [facility] 8.5 (H) 12/09/2019 08:56 AM Goal < 7. Controlled. -Continue Basaglar 23 units in the a.m. and NovoLog for carb coverage with meals, 1 unit to 4 g carb -continue checking glucose 5 to 6 times a day with freestyle Jennifer. 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 Current Status: "Stable" for patient [...] Comments: hd Exacerbation Plan Other/Additional Comments: hd Assessment & Plan (01/09/2023 4:49 PM EDT): Euvolemic today. Current Status: "Stable" for patient / At or near baseline Degree of Condition Awareness: Demonstrates very good awareness of condition, disease course, and prognosis Current Heart Failure Classifications: o With ordinary activity such as doing housework, yard work or shopping ([employer] CLASS II) "RED FLAG" HF Symptoms: o Leg Swelling (Examples: "I can't wear certain socks or shoes", "My pants feel tight") o Increased dyspnea on exertion (Example: "I can't walk to the kitchen or up the stairs") Chronic Medication Regimen: o Beta Ngoc Therapy: Carvedilol o SALVADOR Inhibitor/ARB Therapy: Other: none on hd o Diuretic therapy: Other: hd Self - Management Plan o Other/Additional Comments: hd Exacerbation Plan o Other/Additional Comments: hd Assessment & Plan (05/07/2021 10:54 AM EDT): On chronic dialysis which began in January. Patient has no signs or symptoms of hypovolemia. -Continue Torsemide 100mg daily -recommend good control of comorbidity conditions with goal SBP <130, LDL < 70, A1c <7; all currently contolled. -continue aspirin, Lipitor, amlodipine, hydralazine. Gastroesophageal reflux disease without esophagi tis 11/19/2018 SSS (sick sinus syndrome) 11/13/2018 PAT (paroxysmal atrial tachycardia) 11/13/2018 SALVADOR inhibitor intolerance 05/24/2018 Assessment & Plan (05/07/2021 9:41 AM EDT): Caused hyperkalemia. Avoid use. Hyperparathyroidism, secondary renal 05/21/2018 MINISTERIO on CPAP 05/21/2018 Assessment & Plan (03/23/2024 1:46 PM EDT): Wears CPAP nightly, no issues Assessment & Plan (01/09/2023 4:50 PM EDT): Has not been using CPAP. Mask does not fit. Stable proliferative diabeti c retinopathy of both eyes associated with type 2 diabetes mellitus 05/21/2018 History of endometrial cancer 11/05/2017 Overview (11/05/2017): [place]/BSO. Per UpToDate, 2018: Posttreatment surveillance is aimed at the early detection of recurrent disease. For women with endometrial carcinoma, surveillance consists mainly of monitoring for symptoms and physical examinations. We do not perform vaginal cytology in endometrial cancer survivors because the data suggest they are not useful in early detection of recurrent disease. Use small sized speculum. Chronic diastolic heart failure 11/03/2017 Assessment & Plan (03/23/2024 1:45 PM EDT): No issues with volume overload. Not on diuretics gets volume taken off at HD Friday Type 2 diabetes mellitus wit h diabetic polyneuropathy, with long-term current use of insulin 05/29/2017 Assessment & Plan (03/21/2023 8:45 AM EDT): Gabapentin 600 mg at [facility] Assessment & Plan (05/07/2021 11:11 AM EDT): Having both positive and negative symptoms, burning pain and numbness/tingling in the bilateral feet, distal lower extremities, and bilateral hands. On gabapentin 600 mg at bedtime which helps with the symptoms. Mitral annular calcification 04/28/2017 Major depressive disorder, r ecurrent episode, moderate with seasonal pattern 04/03/2015 Assessment & Plan (03/23/2024 1:48 PM EDT): Tells me mood better past few weeks continues on citalopram without issue. HTN, goal below 140/90 04/11/2014 Assessment & Plan (03/23/2024 1:45 PM EDT): Well managed by PCP continues on hydralazine 100 three times daily and Coreg as well as amlodipine Vitamin D deficiency 11/25/2013 Rosacea 02/23/2013 Hypothyroidism (acquired) 02/23/2013 Assessment & Plan (03/23/2024 1:47 PM EDT): Continues on 100 levothyroxine each a.m., TSH reviewed no need for med adjustment Assessment & Plan (01/09/2023 4:50 PM EDT): Continue levothyroxine Assessment & Plan (05/07/2021 10:57 AM EDT): Lab Results Component Value Date/Time TSH - [facility] 1.58 04/26/2020 09:25 AM TSH - [facility] 1.60 04/26/2020 09:24 AM TSH - [facility] 1.65 07/20/2018 04:37 PM Controlled on most recent labs but it has been 1 year since this was checked in our system, patient is not sure if it has been checked outside of our system but she does not believe so. Since she is complaining of fatigue, will recheck now. -continue level thyroxine 100 mcg daily Type 2 diabetes mellitus wit h hemoglobin A1c goal of less than 7.0% 05/21/2011 Overview (11/14/2015): ICD-10 update of inactive term Assessment & Plan (03/23/2024 1:46 PM EDT): Continues on insulin has been diabetic for approximately 30 years and tells me she is proud her A1c is under 7. HX-MALIG SKIN 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 (09/20/2021): 2009 L calf MIS 03/2021 R upper arm MM at least 1.1 mm, SLNB negative (0/2), IB Dyslipidemia, goal LDL below 100 Overview (03/16/2010): primarily high triglycerides Assessment & Plan (03/23/2024 1:46 PM EDT): Continues on 20 of atorvastatin, updated medication rec as it said 40 documented as of this encounter (statuses as of 07/05/2024) Resolved Problems Problem Noted Date Diagnosed Date Resolved Date Other specified glaucoma 11/28/2022 Renal failure 01/31/2022 10/08/2022 Overview (01/31/2022): hemodialysis Marginal ulcer 01/31/2022 08/21/2022 Overview (08/21/2022): duplicate Post-op pain 01/29/2022 10/08/2022 Pre-operative examination 01/01/2022 Acute posthemorrhagic anemia 05/07/2021 10/08/2022 Assessment & Plan (05/07/2021 11:02 AM EDT): Patient had epigastric pain and hematemesis, found [...] melanoma of right upper extremity 05/07/2021 10/08/2022 Assessment & Plan (05/07/2021 11:02 AM EDT): Malignant melanoma found on biopsy. Scheduled for wide local excision on May 22. GI bleed 04/25/2021 04/27/2021 Chronic kidney disease, stage 3b 11/28/2020 10/08/2022 Overview: Per CKD protocol Gastroparesis 05/12/2020 10/08/2022 Insulin long-term use 11/19/20182018 Overview (05/20/2019): Duplicate graduate fellow (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 insulin 11/19/2018 10/08/2022 Morbid [...] renal 05/21/2018 09/23/2018 Breast cancer screening 03/10/201807/2017 Overview (03/10/2018): In conclusion, our recommendation for this patient [...] T-tube placement 04/16/2017 05/29/2017 [employer] Other*[id number] 04/13/2013 08/27/2016 Overview (04/13/2013): Study Title: Genomic Markers for Patients with Cardiovascular Disease Project # [id number] [employer] Professor: Siena Laws MD [phone] Hypertensive heart disease 03/25/2013 1 07/29/2016 Neuropathy, diabetic 02/18/2013 019 Diastolic heart failure 12/22/201203/2017 Kidney disease, chronic, sta ge III (GFR 30-59 ml/min) 10/02/2011 08/21/2022 Overview (08/21/2022): More specified code listed on PL Historical Type 2 diabetes mellitus wit h hemoglobin A1c goal of less than 7.0% 05/21/2011 05/21/2011 Overview (11/14/2015): ICD-10 update of inactive term Type 1 diabetes mellitus wit h hemoglobin A1c goal of less than 7.0% 02/13/2011 05/21/2011 Overview (11/20/2015): ICD-10 update of inactive term Sleep apnea 06/28/2010 05/21/2018 Lumbago 06/28/2010 05/29/2017 Allergic rhinitis 04/05/2010 01/23/2017 Neoplasm of uncertain behavior of skin 01/16/2010 01/08/2013 DM type 2 causing renal disease 05/21/2018 Iron deficiency anemia 05/29 Overview (03/16/2010): low iron Obesity, morbid (more than 1 00 lbs over ideal weight or BMI > 40) 11/02/2020 Overview (10/09/2015): ICD-10 update of inactive term HTN, goal below 130/80 04/11 documented as of this encounter (statuses as of 07/05/2024) Immunizations Name Administration Dates Next Due COVID-19 mRNA, LNP-s, No Pre serve, 2-Dose Series (Moderna) 04/09/2021,09/23/2020,08/19/2020 COVID-19, LNP-s, No Preserve , Espinoza-sucrose, Ages 12+ (Pfizer) 01/08/2022 COVID-19, MRNA-LNP, PF, 30 M CG/0.3 mL, 12 YRS AND ABOVE, IM (PFIZER-Comirnaty) 06/02/2024 HEPATITIS B VACCINE, RECOMB, 20 MCG/ML, ADULT (HEPLISAV-B) 09/05/2021,05/09/2021,04/04/2021,02/18 Hepatitis B, 20+ yrs 09/16/2018,04/14/2018,03/1104/11/2018 Pneumococcal Conjugate Vacci ne, 20-valent ([id number]) 06/22/2024,12/02/2023(Deferred: - pt states she's already received) Pneumococcal Polysaccharide PPV23 (Pneumovax) 08/30/2014,09/18/2013,07/28/2007 RSV Vac., Bivalent, Perfusio n F, Pf,0.5 Ml (Abrysvo) 08/05/2023 Seasonal Influenza Vac., MDV , IM, 0.5 mL (Fluzone) 05/21/2015,05/05/2014,04/01/2013,10/0 10/2011,05/21/2011,04/05/2010 Seasonal Influenza Virus Vac cine, Unspecified Formulation 04/20/2022,04/12/2020,04/15/2019,03/22,05/29/2017,04/23/2016,03/21/20 16,05/05/2014,04/01/2013,04/23/2012,1 07/21/2010,04/05/2010 Seasonal Influenza, High Dos e, Trivalent, PF, IM (Fluzone HD) 05/05/2024 Seasonal Influenza, PF, 6 M & above, IM , (FluLaval or Fluzone) 05/08/2021,04/12/2020,04/15/2019,03/22,05/29/2017 Seasonal Influenza, Quadriva lent Hd (Fluzone Hd) 04/17/2023 Seasonal Influenza, Quadriva lent, No Preserve, IM 04/23/2016 TD, Preservative Free 04/12/2020 TDAP (age 10 and older)(Boostrix) 04/12/2020 TDAP, Age 7 and older, IM (Adacel) 04/05/2010 Zoster Vaccine Recombinant (Shingrix) 12/13/2020 ,10/12/2020 documented as of this encounter Social History Tobacco Use Types Packs/Day Years Used Date Smoking Tobacco: Never Passive Smoke Exposure: Never Smokeless Tobacco: Never Alcohol Use Standard [...] money to get more. Never true 08/14/2023 Childcare Answer Date Recorded Do you feel overwhelmed with taking care of a child, family member or friend? No 08/14/2023 Does your family need help f inding childcare? (Household - for ages 0-17 years) Not on file 08/14/2023 Clothing Answer Date Recorded Have you been unable to get clothing when it was really needed? No 08/14/2023 Is your family able to get c lothes or diapers when needed? (Household - for ages 0-17 years) Not on file 08/14/2023 Personal Safety Answer Date Recorded Do you feel unsafe or have concerns for your saf ety? No 08/14/2023 Do you have concerns for you r family's safety? (Household - for ages 0-17 years) Not on file 08/14/2023 Utilities Answer Date Recorded Do you have trouble paying y our heating, water, or electric bill? No 08/14/2023 Is your family able to pay t he heat, water, or electric bill? (Household - for ages 0-17 years) Not on file 08/14/2023 Does your family have access to good internet? (Household - for ages 0-17 years) Not on file 08/14/2023 Employment Status Answer Date Recorded Are you unemployed or without regular income? No 08/14/2023 Does the household have a re gular source of income? (Household - for ages 0-17 years) Not on file 08/14/2023 Social Connections Answer Date Recorded How often do you feel lonely or isolated from th ose around you? Never 08/14/2023 Financial Resource Strain Answer Date R ecorded Do you have any trouble payi ng for your medications, or do you think you might in the future? No 08/14/2023 Does your family have troubl e paying for medicine? (Household - for ages 0-17 years) Not on file 08/14/2023 Transportation Needs Answer Date Record ed READ ONLY Do you have troubl e getting a ride to medical visits or work? Never True 08/14/2023 Does your family have a hard time getting a ride to doctors visits? (Household - for ages 0-17 years) Not on file 08/14/2023 Has lack of transportation k ept you from medical appointments, meetings, work, or from getting things needed for daily living? Check all that apply. (Adult - for ages 18 years and over) Not on file 08/14/2023 Do you (or your family) have trouble finding or paying for a ride (transportation)? (Household - for ages 0-17 years) Not on file 08/14/2023 Housing Stability Answer Date Recorded Do you currently live in a s helter or have no steady place to sleep at night? No 08/14/2023 READ ONLY Do you think you a re at risk of becoming homeless? No 08/14/2023 Does your family worry about paying for your home or becoming homeless? (Household - for ages 0-17 years) Not on file 0 08/14/2023 Are you homeless or worried that you might be in the future? (Adult - for ages 18 years and over) Not on file Are you (or your family) caleb eless or worried that you might be in the future? (Household - for ages 0-17 years) Not on file Food Insecurity Answer Date Recorded Do you need food for this week? No 08/14/2023 Are you able to get enough f ood for your family? (Household - for ages 0-17 years) Not on file 08/14/2023 Does your family need food t his week? (Household - for ages 0-17 years) Not on file 08/14/2023 Do you always have enough fo od for your family? (Household - for ages 0-17 years) Not on file 08/14/2023 Comments No Sex and Gender Information Value Date Recorded Sex Assigned at Female 06/09/2019 5:21 PM EST Legal Sex Female 6:12 AM EST Gender Identity Female 06/09/2019 5:21 PM EST Sexual Orientation Straight 06/09/2019 5: 21 PM EST Occupation Industry Job Start Date Job End Date Not on file Not on file Not on file Not on file documented as of this encounter Functional Status * Are you deaf or do you have serious difficulty hearing? Answer Date of Assessment Author No 12/11/2022 6:51 PM Rabia Granados RN * Are you blind or do you have serious difficulty seeing, even when wearing glasses? Answer Date of Assessment Author No 12/11/2022 6:51 PM Rabia Granados RN * Do you have serious difficulty walking or climbing stairs? (5 years old or older) Answer Date of Assessment Author No 12/11/2022 6:51 PM Rabia Granados RN * Do you have difficulty dressing or bathing? (5 years old or older) Answer Date of Assessment Author No 12/11/2022 6:51 PM Rabia Granados RN * Because of a physical, mental, or emotional condition, do you have difficulty doing errands alone such as visiting a doctors office or shopping? (15 years old or older) Answer Date of Assessment Author No 12/11/2022 6:51 PM EDT Rabia Wiley RN documented as of this encounter Mental Status * Because of a physical, mental, or emotional condition, do you have serious difficulty concentrating, remembering, or making decisions? (5 years old or older) Answer Entry Date Author No 12/11/2022 6:51 PM EDT Rabia Wiley RN documented in this encounter Miscellaneous Notes * Telephone Encounter - Heidi Garcia RN - 07/05/2024 4:32 PM EST Call placed to pt for wellness check and to schedule next home visit. No answer. Left pt VM to return call and also text. Will attempt tomorrow to reach pt. documented in this encounter Plan of Treatment Upcoming Encounters Date Type Department Care Team (Late st Contact Info) Description 07/13/2024 10:00 AM EST [facility] [address] [facility] [place] [address] 08/10/2024 8:00 AM EST Office Visit Gastroenterology, [facility] [address] [facility] [place] [address] Emi Queen CRNP [address] [facility] [place] [address] 08/10/2024 2:40 PM EST Office Visit [facility]ology[facility] [address] [place] [phone] Joanne Parks PA-C [address] [place] [address] [place] [address] 09/02/2024 10:00 AM EST Nurse Only Nutrition & Weight Management, [facility] [place] [address] [place], Nurse Gi Nutrition [facility] [address] [place] [address] 09/30/2024 11:00 AM EDT Office Visit Podiatry [facility] [address] [place] [address] Calli Avila, DAIANA [address] [place] [id number] Scheduled Procedures Name Priority Associated Diagnoses Date/Ti me COLONOSCOPY FLEXIBLE PROXIMA L DIAGNOSTIC Recall History of colonic polyps Health Maintenance Due Date Last Done Comments Cologuard 12/23/2003 Fecal Occult Blood Test 12/23/2003 Sigmoidoscopy 12/23/2003 TSH 01/23/2023 01/23/2022, 07/21, 05/18/2021, Additional history exists Mammogram 07/08/2024 07/08/2023, 06/20, 04/18/2022, Additional history exists Depression Monitoring 08/14/2024 08/14/2023 HbA1c 11/05/2024 05/07/2024, 11/19, 07/01/2022, Additional history exists Diabetic Eye Exam 01/04/2025 01/05/2024, , 12/13/2021, Additional history exists Colonoscopy 02/28/2028 02/27/2023, 11/19, 12/02/2013, Additional history exists Colorectal Cancer Screening 02/28/2028 DTap/Tdap Vaccines (4 - Td or Tdap) 04/12/2030 04/12/2020, 04/12/2020, 04/05/2010 Zoster Vaccines Completed 12/13/2020, 10/12/2020 Albumin/Creatinine Ratio Discontinued 021, 12/09/2019, 01/02/2016, Additional history exists Hepatitis B Vaccine Completed 09/05/2021, 05/09/2021, 04/04/2021, Additional history exists Diabetic Foot Exam Discontinued 10/15/2022, 0 01/31/2021, 04/12/2020, Additional history exists RETIRED - COLONOSCOPY-EVERY 5 YRS AGES 18-100 Discontinued 02/27/2023, 12/11/2017, 12/02/2013, Additional history exists Influenza Vaccine (FLU shot) Completed 05/05/2024, 04/17/2023, 04/20/2022, Additional history exists COVID-19 Vaccine Completed 06/02/2024, , 04/09/2021, Additional history exists Pneumococcal Vaccine: 65+ Years Completed 06/22/2024, 08/30/2014, 09/18/2013, Additional history exists HPV (Gardasil) Vaccine Aged Out No lo nger eligible based on patient's age to complete this topic MENINGOCOCCAL (MENACTRA/MENVEO) Aged Out No longer eligible based on patient's age to complete this topic documented as of this encounter Medical Devices Implanted Type Area Airplane Technician Device Identifier Shelf Expiration Date Model / Serial / Lot Coil Vortex 35 Pltinm [id number] - [id number] Implanted:Qty: 1 on 11/27/2021 by Sterling Cates MD at OR [facility] [place] Right: Upper Arm [employer] : NEURO INTR [id number] 08/15/2024 [id number] Coil Vortex 35 Pltinm [id number] - [id number] Implanted:Qty: 1 on 11/27/2021 by Sterling Cates MD at OR [facility] [place] Right: Upper Arm [employer] : NEURO INTR [id number] 08/15/2024 [id number] Coil Vortex 35 Pltinm [id number] - [id number] Implanted:Qty: 1 on 11/27/2021 by Sterling Cates MD at OR [facility] [place] Right: Upper Arm [employer] : [employer] INTR [id number] 08/15/2024 [id number] Coil Vortex 35 Pltinm [id number] - [id number] Implanted:Qty: 1 on 11/27/2021 by Sterling Cates MD at OR [facility] [place] Right: Upper Arm [employer] : [employer] INTR [id number] 05/16/2024 [id number] / / [id number] Azur 35 Detachable 5mm 11cm - [id number] Implanted:Qty: 1 on 03/19/2022 by Jose Devine MD at OR [facility] [place] Right: Wrist [employer] [id number] 10/18/2025 [id number] / / [id number] Azur 35 Detachable 5mm 11cm - [id number] Implanted:Qty: 1 on 03/19/2022 by Jose Devine MD at OR [facility] [place] Right: Wrist [employer] [id number] 06/19/2026 [id number] / / [id number] Mesh Flat Sheet 10x14 [id number] - [id number] Implanted:Qty: 1 on 12/11/2022 by Eros Dash MD at OR [facility] [place] N/A: Abdomen CR BARD : DAVOL [id number] 06/17/2027 [id number] / / [id number] documented as of this encounter Advance Directives Documents on File Type Date Recorded Patient Pearl Maker Expl anation POL 11/13/2020 POLST [place] VALERIA ORDERS FOR LIFE-SUSTAINING [...] Agents on File Name Relationship Healthcare Agent [facility] Communication Zhen Finley Spouse Health Care Agent Care Teams Certified Midwife Relationship Specialty Start Date End Date Luis Fernando Rojas MD [address] [place] [address] PCP - General Family Medicine 09/23/16 documented as of this encounter
--- OUTSIDE RECORDS SUMMARY | 2024-07-08 02:50 | External Medical Summary | Summary of Care ---
Author Name Unknown Organization [facility] Address [address] [place] [address] Phone [phone] Care Team Providers Care Dental Office Coordinator Name Role Phone Luis Fernando Rojas MD Primary Care Provider [phone] Reason for Visit * Reason Comments Acute Constant wet cough w ith yellow mucus, runny nose x 2 days. Has not been able to sleep, cannot tolerate lying flat. Audible wheezing when she breathes. Feels very weak. SOB, oxygen sat is 86% Encounter Details Date Type Department Care Team (Late st Contact Info) Description 07/07/2024 10:00 AM EST Office Visit Family [facility] [address] [facility] [place] [id number] Pete Michel CRNP [address] [facility] [place] [id number] Low oxygen saturation*; SOB (shortness of breath); Hypertensive 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 congestive heart failure and stage 5 chronic kidney disease on chronic dialysis ([facility]); Type 2 diabetes mellitus 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 dialysis, with long-term current use of insulin ([facility]); History of endometrial cancer; HTN, goal below 140/90; S/P gastric bypass; SSS (sick sinus syndrome) ([facility]); MINISTERIO on CPAP; Morbid obesity with BMI of 40.0-44.9, adult ([facility]); Gastroesophageal reflux disease without esophagitis Allergies Active Allergy Reactions Criticality Noted Date Comments Salvador Inhibitors Other (Please comment),Cough High HyperKalemia documented as of this encounter (statuses as of 07/07/2024) Medications Melatonin 10 MG Tablet Take 12 [...] directed. Replace every 14 days (supplied through [facility]) 7 Each 3 05/17/20 21 Active CPAP [...] mouth in the morning. 03/23/20 24 Active OneTouch Verio In Vitro Strip (Glucose Blood) To test blood sugar 4 times daily. 400 Strip 1 4 6:47 AM EDT 04/20/20 24 Active OneTouch Delica Lancets 33G To test blood sugar 4 times daily. 400 Each 1 4 6:47 AM EDT 04/20/20 24 Active OneTouch Verio w/Device Kit Use as directed. 1 [...] in the morning. 16 g 1 06/22/20 24 Active methylPREDNISolo ne 4 MG Oral Tablet Therapy Pack (Medrol Dosepack) follow package directions 21 Tablet 07/01/20 24 024 Discontin ued(Medic ation List Clean Up) Hospital, Clinic, or Other Facility Administered Medication Ordered Dose Route Frequency Start Date End Date Status vitamin b-12 (Cyanocobalamin) inj 1,000 mcgIndications:S/P gastric bypass 1000 mcg IM [id number] 10/15/2022 07/19/2025 Active vitamin b-12 (Cyanocobalamin) inj 1,000 mcgIndications:Morbid obesity with BMI of 40.0-44.9, adult (HCC),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 [id number] 10/17/2023 12/11/19 25 Active documented as of this encounter (statuses as of 07/07/2024) Active Problems Problem Noted Date Diagnosed Date [...] 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 10/15/2022 [facility] OTHER*[id number] 01/01/2022 S/P gastric bypass 01/01/[address] [...] Assessment & Plan (05/07/2021 11:01 AM EDT): [facility] dialysis since January, Dr. Magallanes. Estela from [...] 8:45 AM EDT): Gabapentin 600 mg at [facility] Assessment & Plan (05/07/2021 11:11 AM EDT): [...] as of this encounter (statuses as of 07/07/2024) Resolved Problems Problem Noted Date Diagnosed Date [...] Insulin long-term use 11/19/20182018 Overview (05/20/2019): Duplicate city letter carrier (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 insulin 11/19/2018 10/08/2022 Morbid [...] T-tube placement 04/16/2017 05/29/2017 [employer] Other*[id number] 04/13/2013 08/27/2016 Overview (04/13/2013): Study Title: Genomic Markers for Patients with Cardiovascular Disease Project # [id number] Front Desk Associate: Siena Laws MD [phone] Hypertensive heart disease 03/25/2013 1 07/29/2016 Neuropathy, [...] as of this encounter (statuses as of 07/07/2024) Immunizations Name Administration Dates Next Due COVID-19 mRNA, LNP-s, No Pre serve, 2-Dose Series (Moderna) 04/09/2021,09/23/2020,08/19/2020 COVID-19, LNP-s, No Preserve , Espinoza-sucrose, Ages 12+ (Pfizer) 01/08/2022 COVID-19, MRNA-LNP, PF, 30 M CG/0.3 mL, 12 YRS AND ABOVE, IM (MECLUB-Comirnaty) 06/02/2024 HEPATITIS B VACCINE, RECOMB, 20 MCG/ML, ADULT (HEPLISAV-B) 09/05/2021,05/09/2021,04/04/2021,02/18 Hepatitis B, 20+ yrs 09/16/2018,04/14/2018,03/1104/11/2018 Pneumococcal Conjugate Vacci ne, 20-valent ([id number]) 06/22/2024,12/02/2023(Deferred: - pt states she's already received) Pneumococcal Polysaccharide PPV23 (Pneumovax) 08/30/2014,09/18/2013,07/28/2007 RSV Vac., Bivalent, Perfusio n F, Pf,0.5 Ml (Abrysvo) 08/05/2023 Seasonal Influenza Vac., MDV , IM, 0.5 mL (Fluzone) 05/21/2015,05/05/2014,04/01/2013,10/2011,05/21/2011,04/05/2010 Seasonal Influenza Virus Vac cine, Unspecified Formulation [...] Sign Reading Time Taken Comments Blood Pressure 130/64 07/07/2024 9:52 AM EST Pulse 87 07/07/2024 9:52 AM EST Temperature 37.4 C (99.3 F) 07/07/2024 9:52 AM ES T Respiratory Rate - - Oxygen Saturation 86% 07/07/2024 9:52 AM EST Inhaled Oxygen Concentration - - Weight - - Height - - Body Mass Index - - documented in this encounter Functional Status * Are you [...] No 12/11/2022 6:51 PM Rabia Granados RN documented as of this encounter Mental Status * Because of a physical, mental, or emotional condition, do you have serious difficulty concentrating, remembering, or making decisions? (5 years old or older) Answer Entry Date Author No 12/11/2022 6:51 PM Rabia Granados RN documented in this encounter Progress Notes * Pete Michel CRNP - 07/07/2024 10:06 AM EST Images from the original note were not included. Follow up Family Medicine Visit History of Present Illness Candi Finley is a very pleasant 63 year old female with PMH of chronic diastolic HF, pacemaker, PAT, Dialysis on MWF, diabetes, dyslipidmia, hypertension, MINISTERIO on cpap, GERD, hx of endometrial ca, s/p gastric bypass and others listed below presenting with acute. Started coughing up yellow mucus, runny nose past 2 days. Onset of symptoms was very abrupt. She could not sleep, lying flat. Wheezing, SOB, and feels very weak. Her vitals unstable with O2 sat 86% today. Temp 99.3. Social History Socioeconomic History Marital status: Spouse name: Not on file Number of children: 0 Years of education: Not on file Highest education level: Not on file Occupational History Employer: [employer] Tobacco Use Smoking status: Never Passive exposure: Never Smokeless tobacco: Never Vaping Use Vaping status: Never Used Substance and Sexual Activity Alcohol use: No Drug use: No Sexual activity: Yes Partners: Male control/protection: Surgical Comment: hysterectomy Other Topics Concern Not on file Social History Narrative Employed: [employer] Social Needs Financial Resource Strain: Low Risk (08/14/2023) Financial Resource Strain Do you have any trouble paying for your medications, or do you think you might in the future? (Adult - for ages 18 years and over): No Does your family have trouble paying for medicine? (Household - for ages 0-17 years): Not on file Food Insecurity: No Food Insecurity (08/14/2023) Food Insecurity Do you need food for this week? (Adult - for ages 18 years and over): No Are you able to get enough food for your family? (Household - for ages 0-17 years): Not on file Does your family need food this week? (Household - for ages 0-17 years): Not on file Do you always have enough food for your family? (Household - for ages 0-17 years): Not on file Transportation Needs: No Transportation Needs (08/14/2023) Transportation Needs Do you have trouble getting a ride to medical visits or work? (Adult - for ages 18 years and over):Never True Does your family have a hard time getting a ride to doctors visits? (Household - for ages 0-17 years): Not on file Has lack of transportation kept you from medical appointments, meetings, work, or from getting things needed for daily living? Check all that apply. (Adult - for ages 18 years and over): Not on file Do you (or your family) have trouble finding or paying for a ride (transportation)? (Household - for ages 0-17 years): Not on file Social Connections: Socially Integrated (08/14/2023) Social Connections How often do you feel lonely or isolated from those around you? (Adult - for ages 18 years and over): Never Housing Stability: Low Risk (08/14/2023) Housing Stability Do you currently live in a retirement or have no steady place to sleep at night? (Adult - for ages 18 years and over): No Do you think you are at risk of becoming homeless? (Adult - for ages 18 years and over): No Does your family worry about paying for your home or becoming homeless? (Household - for ages 0-17 years): Not on file Are you homeless or worried that you might be in the future? (Adult - for ages 18 years and over): Not on file Are you (or your family) homeless or worried that you might be in the future? (Household - for ages0-17 years): Not on file PMH: Past Medical History: Diagnosis Date Body mass index 40 and over, adult CHF NYHA class I ([facility]) 07/2009 Chronic marginal ulcer Deficiency of other vitamins Vit D Depressive disorder, not elsewhere classified Dialysis patient ([facility]) Diverticulosis of colon (without mention of hemorrhage) 12/02/2013 sigmoid & descending colon DM type 2 causing eye disease ([facility]) DM type 2 causing neurological disease ([facility]) neuropathy since 2006 DM type 2 causing renal disease ([facility]) DM type 2, goal A1c below [address] Monte Dyslipidemia, goal LDL below 100 primarily high triglycerides Endometrial cancer ([facility]) 1993 ESRD (end stage renal disease) on dialysis ([facility]) 03/14/2021 HTN, goal below 130/80 Kidney disease, chronic, stage III (GFR 30-59 ml/min) ([facility]) 10/02/2011 More specified code listed on PL Historical Malignant melanoma of right upper extremity ([facility]) 05/07/2021 Malignant neoplasm of corpus uteri ([facility]) 1993 Melanoma ([facility]) L calf R arm Motion sickness Neuropathy, diabetic ([facility]) 02/18/2013 Osteoarthritis of hip mild to mod bilat hip pain Other specified anemias low iron Other specified glaucoma denied by patient PONV (postoperative nausea and vomiting) Renal failure hemodialysis SBO (small bowel obstruction) ([facility]) 04/25/2017 Sleep apnea 07/2009 CPAP 11 cm H2O. C-flex 2 Past Surgical History: Procedure Laterality Date ABD WALL HERNIA REPAIR, LAP, REDUCIBLE N/A 01/28/2022 LAPAROSCOPIC VENTRAL/UMBILICAL HERNIA REPAIR, REDUCIBLE W OR W/O MESH performed by Honorio Ashford MD at OR [facility] AV ACCESS, DIRECT ANASTOMOSIS Right 08/16/2021 ARTERIOVENOUS ANASTOMOSIS OPEN DIRECT ANY SITE performed by Sterling Cates MD at OR [facility] BREAST BIOPSY Left 12/26/2008 Usual Ductal Hyperplasia BREAST BIOPSY Left 09/20/2010 Benign BX LYMPH NODE DEEP AXIL Right 05/22/2021 BIOPSY LYMPH NODE DEEP AXILLARY OPEN performed by Diamond Rivero MD at OR [facility] COLONOSCOPY, DIAGNOSTIC (RECTUM) 12/02/2013 hyperplastic polyps, diverticulosis, repeat 5 yrs/done @ [facility] COLONOSCOPY, DIAGNOSTIC (RECTUM) 12/11/2017 adenomatous polyps, diverticulosis, repeat 5 yrs/[facility] COLONOSCOPY, DIAGNOSTIC (RECTUM) N/A 02/27/2023 diverticulosis/hemorrhoids/biopsies show adenomatous polyps/recall 5 years/Colonoscopy/[place] CORONARY ANGIOGRAPHY W/LEFT HEART CATH 04/13/2013 CORONARY ANGIOGRAPHY W/LEFT HEART CATH performed by Ulises Reed MD at CARDIAC LABS [facility] DIALYIS CIRCUIT VASCULAR EMBOLIZATION OCCLUSION ENDOVASC IMAGING Right 11/27/2021 EMBOLIZATION DIALYSIS CIRCUIT performed by Sterling Cates MD at OR [facility] EGD, FLEXIBLE, DIAGNOSTIC 05/03/2014 mild-mod inflammation/done @ [facility] EGD, FLEXIBLE, DIAGNOSTIC N/A 04/16/2017 ESOPHAGOGASTRODUODENOSCOPY (EGD), FLEXIBLE, TRANSORAL, DIAGNOSTIC performed by Sukumar Polanco MDat OR [facility] EGD, FLEXIBLE, DIAGNOSTIC 05/05/2020 mild-mod inflammation on bx / ESOPHAGOGASTRODUODENOSCOPY (EGD), FLEXIBLE, TRANSORAL, DIAGNOSTIC performed by Adin Borja MD at ENDOSCOPY [facility] EGD, FLEXIBLE, DIAGNOSTIC N/A 04/25/2021 ESOPHAGOGASTRODUODENOSCOPY (EGD), FLEXIBLE, TRANSORAL, DIAGNOSTIC performed by Honorio Almendarez MD atENDOSCOPY [facility] EGD, FLEXIBLE, DIAGNOSTIC 06/13/2021 gastrojejunal anastomosis characterized by ulceration, repeat 2 mo / [facility] IDENTIFY SENTINEL NODE, RADIOACTIVE TRACER Right 05/22/2021 INJECTION PROCEDURE FOR IDENTIFICATION SENTINEL NODE performed by Diamond Rivero MD at OR [facility] INFORMATION Left 2019 Pacemaker placement. INTRO CATH DIALYSIS CIRCUIT DX ANGIOGRAPHY FLUORO S&I Right 10/10/2022 AV FISTULOGRAM DIAGNOSTIC performed by Jose Devine MD at OR [facility] INTRO CATH DIALYSIS CIRCUIT W/TRANSCATH PLACEMENT IV STENT Right 03/19/2022 AV FISTULOGRAM STENT & PERIPHERAL ANGIOPLASTY performed by Jose Devine MD at OR [facility] INTRO CATH DIALYSIS CIRCUIT W/TRANSCATH PLACEMENT IV STENT Right 05/13/2023 AV FISTULOGRAM STENT & PERIPHERAL ANGIOPLASTY performed by Williams Matt MD at OR [facility] INTRO CATH DIALYSIS CIRCUIT W/TRANSCATH PLACEMENT IV STENT Right 12/02/2023 AV FISTULOGRAM STENT & PERIPHERAL ANGIOPLASTY performed by Micheal Urena MD at OR [facility] INTRO CATH DIALYSIS CIRCUIT W/TRANSCATH PLACEMENT IV STENT Right 06/01/2024 AV FISTULOGRAM STENT & PERIPHERAL ANGIOPLASTY performed by Beto Torrez MD at OR [facility] INTRO CATH DIALYSIS CIRCUIT W/TRANSLUM BALLOON ANGIOPLASTY Right 11/27/2021 AV FISTULOGRAM & PERIPHERAL ANGIOPLASTY performed by Sterling Cates MD at OR [facility] INTRO CATH DIALYSIS CIRCUIT W/TRANSLUM BALLOON ANGIOPLASTY Right 05/30/2022 AV FISTULOGRAM & PERIPHERAL ANGIOPLASTY performed by Beto Torrez MD at OR [facility] INTRO CATH DIALYSIS CIRCUIT W/TRANSLUM BALLOON ANGIOPLASTY Right 02/25/2023 AV FISTULOGRAM & PERIPHERAL ANGIOPLASTY performed by Jose Devine MD at OR [facility] INTRO CATH DIALYSIS CIRCUIT W/TRANSLUM BALLOON ANGIOPLASTY Right 03/30/2024 AV FISTULOGRAM & PERIPHERAL ANGIOPLASTY performed by Micheal Urena MD at OR [facility] IR DUPLEX ULTRASOUND (FOR INTERVENTIONAL RADIOLOGY USE ONLY) 03/02/2021 IR FISTULAGRAM AV DIALYSIS SHUNT IR VENOUS ACCESS NON-MEDIPORT 07/18/2022 LAPAROSCOPE PROCEDURE, LIVER N/A 04/16/2017 UNLISTED LAPAROSCOPIC PROCEDURE LIVER performed by Sukumar Polanco MD at OR [facility] LAPAROSCOPE PROCEDURE, LIVER N/A 01/28/2022 UNLISTED LAPAROSCOPIC PROCEDURE LIVER performed by Honorio Ashford MD at OR [facility] LAPAROSCOPIC GASTRIC BYPASS/JODY-EN-Y N/A 04/16/2017 LAPAROSCOPIC GASTRIC RESTRICTIVE BYPASS JODY EN Y performed by Sukumar Polanco MD at OR [facility] LAPAROSCOPY; CHOLECYSTECTOMY N/A 04/16/2017 LAPAROSCOPIC CHOLECYSTECTOMY performed by Sukumar Polanco MD at OR [facility] MISCELLANEOUS ORDER (HSHS [...] performed by Sukumar Polanco MD at OR [facility] REPLACE,COMP,FLACO CENT ACC DEV N/A 03/22/2021 REPLACEMENT COMPLETE TUNNELED CENTRAL CATHETER NO PORT performed by Luis Fernando Hassan DO at OR [facility] REVISE STOMACH-BOWEL FUSION N/A 01/28/2022 REVISION GASTROJEJUNAL ANASTOMOSIS performed by Honorio Ashford MD at OR [facility] RMV MALG LSN TRK/ARM/LG >4.0CM Right 05/22/2021 EXCISION MALIGNANT TRUNK ARM LEG OVER 4CM performed by Diamond Rivero MD at OR [facility] RPR AA HERNIA 1ST 3-10 CM REDUCIBLE N/A 12/11/2022 INCISIONAL/VENTRAL/SPIGELIAN HERNIA REPAIR INITIAL 3-10 CM REDUCIBLE performed by Eros Dash MD at OR [facility] TOTAL ABD HYSTERECTOMY W/WO REMOVAL OF TUBE(S) Bilateral age 33 TOTAL HYSTERECTOMY TAHBSO (endometrial ca) TRANSECTION VAGUS NRV,TRUNCAL N/A 01/28/2022 LAPAROSCOPIC TRANSECTION VAGUS NERVES TRUNCAL performed by Honorio Ashford MD at OR [facility] UPPER GI ENDOSCOPY Current Outpatient Medications Medication Sig Dispense Refill Fluticasone Propionate 50 MCG/ACT Nasal Suspension (Flonase) Administer 2 Sprays into each nostril in the morning. 16 g 1 buPROPion HCl ER (SR) 150 MG Oral Tablet Extended Release 12 Hour (Wellbutrin SR) Take 1 Tablet by mouth every evening. 90 Tablet 0 OneTouch Options Away Lancets 33G To test blood sugar 4 times daily. 400 Each 1 OneTouch Verio In Vitro Strip (Glucose Blood) To test blood sugar 4 times daily. 400 Strip 1 OneTouch Verio w/Device Kit Use as directed. 1 Kit 0 Atorvastatin Calcium 40 MG Oral Tablet (Lipitor) Take 0.5 Tablets by mouth in the morning. Carvedilol 12.5 MG Oral Tablet (Coreg) Take 1 Tablet by mouth in the morning and 1 Tablet before bedtime. 180 Tablet 4 Omeprazole 20 MG Oral Capsule Delayed Release (PriLOSEC) Take 1 Capsule by mouth in the morning. 100 Capsule 3 amLODIPine Besylate 5 MG Oral Tablet (Norvasc) TAKE ONE TABLET BY MOUTH EVERY DAY IN THE MORNING 90Tablet 1 Citalopram Hydrobromide 20 MG Oral Tablet (CeleXA) Take 1 Tablet by mouth in the morning. Diclofenac Sodium 1 % External Gel (Voltaren) Apply topically to affected area 3 times a day as needed for Pain. 100 g 2 Insulin Glargine Solostar 100 UNIT/ML Subcutaneous Solution Pen-injector (Basaglar KwikPen) Inject 16 units subcutaneously every day. 30 mL 4 Insulin Lispro (1 Unit Dial) 100 UNIT/ML Subcutaneous Solution Pen-injector (HumaLOG KwikPen) Inject 14 units with breakfast, 4 units with lunch and 16 units with supper + CF 1:25 over 150. Max dose of 45 units per day 30 mL 4 Gabapentin 300 MG Oral Capsule (Neurontin) Take 1 Capsule by mouth at bedtime. Follow up with your primary care provider for further management. 90 Capsule 3 Levothyroxine Sodium 100 MCG Oral Tablet (Levoxyl) TAKE 1 TABLET BY MOUTH DAILY AT LEAST 30 MINUTESPRIOR TO FIRST MEAL OF THE DAY OR OTHER MEDICATIONS 90 Tablet 3 BD Pen Needle Mini U/F 31G X [...] 20 mcg of vitamin d twice daily. Acetaminophen 325 MG Oral Tablet (Tylenol) Take [...] call 911. 25 Tablet 11 Vitamin D 125 MCG (5000 UT) Oral Capsule Take 1 Capsule by mouth every morning. ProRenal + D Oral Tablet Take by mouth 1 Tablet daily . CPAP every night at bedtime. 12 FreeStyle Jennifer 2 Sensor Use as directed. Replace every 14 days (supplied through [facility]) 7 Each 3 Aspirin 81 MG Oral Tablet Chewable Take 1 Tab by mouth at bedtime. with food. 90 Tab 3 Melatonin 10 MG Tablet Take 12 mg by mouth at bedtime. Current Facility-Administered Medications Medication Dose Route Frequency Provider Last Rate Last Admin vitamin b-12 (Cyanocobalamin) inj 1,000 mcg 1,000 mcg Intramuscular Q12 Weeks Cleo Fonseca PA-C vitamin b-12 (Cyanocobalamin) inj 1,000 mcg 1,000 mcg Intramuscular Q12 Weeks Luis Fernando Rojas MD 1,000 mcg at 06/02/24 1019 Review of patient's allergies indicates: Allergen Reactions Salvador Inhibitors Other (Please comment) and Cough HyperKalemia Most Recent Immunizations Administered Date(s) Administered COVID-19 mRNA, LNP-s, No Preserve, 2-Dose Series (Moderna) 04/09/2021 COVID-19, LNP-s, No Preserve, Espinoza-sucrose, Ages 12+ (Pfizer) 01/08/2022 COVID-19, MRNA-LNP, PF, 30 MCG/0.3 mL, 12 YRS AND ABOVE, IM (MECLUB-Comirnaty) 06/02/2024 HEPATITIS B VACCINE, RECOMB, 20 MCG/ML, ADULT (HEPLISAV-B) 09/05/2021 Hepatitis B, 20+ yrs 09/16/2018 Pneumococcal Conjugate Vaccine, 20-valent ([id number]) 06/22/2024 Pneumococcal Polysaccharide PPV23 (Pneumovax) 08/30/2014 RSV Vac., Bivalent, Perfusion F, Pf,0.5 Ml (Abrysvo) 08/05/2023 Seasonal Influenza Vac., MDV, IM, 0.5 mL (Fluzone) 05/21/2015 Seasonal Influenza Virus Vaccine, Unspecified Formulation 04/20/2022 Seasonal Influenza, High Dose, Trivalent, PF, IM (Fluzone HD) 05/05/2024 Seasonal Influenza, PF, 6 M & above, IM , (FluLaval or Fluzone) 05/08/2021 Seasonal Influenza, Quadrivalent Hd (Fluzone Hd) 04/17/2023 Seasonal Influenza, Quadrivalent, No Preserve, IM 04/23/2016 TD, Preservative Free 04/12/2020 TDAP (age 10 and older)(Boostrix) 04/12/2020 TDAP, Age 7 and older, IM (Adacel) 04/05/2010 Zoster Vaccine Recombinant (Shingrix) 12/13/2020 Review of Systems: Physical Exam BP 130/64 (BP Site: Left Arm, BP Position: Sitting) | Pulse 87 | Temp 99.3 F (37.4 C) (Tympanic) | SpO2 86% Physical Exam Constitutional: Appearance: Normal appearance. HENT: Head: Normocephalic. Nose: Right Sinus: No maxillary sinus tenderness or frontal sinus tenderness. Left Sinus: No maxillary sinus tenderness or frontal sinus tenderness. Cardiovascular: Rate and Rhythm: Normal rate and regular rhythm. Pulmonary: Effort: Pulmonary effort is normal. Breath sounds: Wheezing present. No rales. Musculoskeletal: General: No swelling. Cervical back: Neck supple. Skin: General: Skin is warm. Neurological: Mental Status: She is alert and oriented to person, place, and time. Psychiatric: Mood and Affect: Mood normal. Assessment and Plan 1. Low oxygen saturation 86% on RA Recommend to go ER for further evaluation. Pt declined ambulance, her will drive her. 2. SOB (shortness of breath) +Wheezing 3. Hypertensive 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 congestive heart failure and stage 5 chronic kidney disease on chronic dialysis ([facility]) 4. Type 2 diabetes mellitus 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 dialysis, with long-term currentuse of insulin ([facility]) 5. History of endometrial cancer 6. HTN, goal below 140/90 7. S/P gastric bypass 8. MINISTERIO on CPAP 9. Morbid obesity with BMI of 40.0-44.9, adult ([facility]) 10. Gastroesophageal reflux disease without esophagitis Wrap-Up I have advised the patient to call our office with any worsening or new symptoms. I spent a total of 20-29 minutes (exact time 20 mins) on the date of service in preparation, delivery, and documentation of the care provided to Candi Finley excluding any time spent in the performance of separately billed services. Pete Michel, CARLYN, LUCRECIA [facility] Ing to documented in this encounter Nursing Notes * Jojo Sequeira CMA - 07/07/2024 9:56 AM EST The patient has been properly identified by confirmation of name and date of . Chief Complaint Patient presents with Acute Constant wet cough with yellow mucus, runny nose x 2 days. Has not been able to sleep, cannot tolerate lying flat. Audible wheezing when she breathes. Feels very weak. SOB, oxygen sat is 86% documented in this encounter Plan of Treatment Upcoming Encounters Date Type Department Care Team (Late st Contact Info) Description 07/13/2024 10:00 AM EST Imaging Radiology [facility] [address] [facility] [address] [facility] [place] [id number] 08/10/2024 8:00 AM EST Office Visit Gastroenterology, [facility] [address] [facility] [place] [address] Emi Queen CRNP [address] [facility] [place] [address] 08/10/2024 2:40 PM EST Office Visit Dermatology, [facility] [address] [place] [phone] Joanne Parks PA-C [address] [place] [address] [place] [address] 09/02/2024 10:00 AM EST Nurse Only Nutrition & Weight Management, [facility] [address] [place] [address] Boni Nurse Gi Nutrition [facility] [address] [address] [place] [id number] 09/30/2024 11:00 AM EDT Office Visit Podiatry [facility] [address] [place] [address] Calli Avila, DAIANA [address] [place] [id number] Scheduled Procedures Name Priority Associated Diagnoses Date/Ti [...] this encounter Medical Devices Implanted Type Area Information Systems Specialist Device Identifier Shelf Expiration Date Model / Serial / Lot Coil Vortex 35 Pltinm [id number] - [id number] Implanted:Qty: 1 on 11/27/2021 by Sterling Cates MD at [place] [facility] [place] Right: Upper Arm [employer] : NEURO INTR [id number] 08/15/2024 [id number] Coil Vortex 35 Pltinm [id number] - [id number] Implanted:Qty: 1 on 11/27/2021 by Sterling Cates MD at OR [facility] [place] Right: Upper Arm [employer] : [employer]O INTR [id number] 08/15/2024 [id number] Coil Vortex 35 Pltinm [id number] - [id number] Implanted:Qty: 1 on 11/27/2021 by Sterling Cates MD at [place] [facility] [place] Right: Upper Arm [employer] : [employer] INTR [id number] 08/15/2024 [id number] Coil Vortex 35 Pltinm [id number] - [id number] Implanted:Qty: 1 on 11/27/2021 by Sterling Cates MD at OR [facility] [place] Right: Upper Arm [employer] : NE[employer] INTR [id number] 05/16/2024 [id number] / [id number] Azur 35 Detachable 5mm 11cm - [id number] Implanted:Qty: 1 on 03/19/2022 by Jose Devine MD at OR [facility] [place] Right: Wrist [employer] [id number] 10/18/2025 [id number] / / [id number] Azur 35 Detachable 5mm 11cm - [id number] Implanted:Qty: 1 on 03/19/2022 by Jose Devine MD at OR [facility] [place] Right: Wrist [employer] [id number] 06/19/2026 [id number] / / [id number] Mesh Flat Sheet 10x14 [id number] - [id number] Implanted:Qty: 1 on 12/11/2022 by Eros Dash MD at OR [facility] [place] N/A: Abdomen CR BARD : DAVOL [id number] 06/17/2027 [id number] / / [id number] documented as of this encounter Visit Diagnoses Diagnosis Marginal ulcer- Primary Gastrojejunal ulcer, unspecified as acute or chronic, without mention of hemorrhage, perforation, or obstruction ESRD (end stage renal disease) on dialysis ([facility]) End stage renal disease Hypertensive 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 congestive heart failure and stage 5 chronic kidney disease on chronic dialysis ([facility]) Acute posthemorrhagic anemia Type 2 diabetes mellitus 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 dialysis, with long-term current use of insulin ([facility]) Hypothyroidism (acquired) Unspecified hypothyroidism Malignant melanoma of right upper extremity (HCC) Aortic atherosclerosis (HCC) Atherosclerosis of aorta Diabetic polyneuropathy associated with type 2 diabetes mellitus ([facility]) Advanced care planning/counseling discussion- Primary Other specified counseling Hypertensive 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 congestive heart failure and stage 5 chronic kidney disease on chronic dialysis (HCC) Presence of cardiac pacemaker Cardiac pacemaker in situ SSS (sick sinus syndrome) (HCC) Sinoatrial node dysfunction MINISTERIO on CPAP Obstructive sleep apnea (adult) (pediatric) Hypothyroidism (acquired) Unspecified hypothyroidism Type 2 diabetes mellitus 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 dialysis, with long-term current use of insulin ([facility]) S/P gastric bypass Bariatric surgery status ESRD (end stage renal disease) on dialysis (HCC) End stage renal disease Recurrent ventral incisional hernia Incisional hernia without mention of obstruction or gangrene NO SHOW/FAILED TO KEEP APPOINTMENT- Primary Chronic diastolic heart failure (HCC)- Primary Chronic diastolic heart failure HTN, goal below 140/90 Unspecified essential hypertension Type 2 diabetes mellitus with hemoglobin A1c goal of less than 7.0% (HCC) Hypothyroidism (acquired) Unspecified hypothyroidism Dyslipidemia, goal LDL below 100 Other and unspecified hyperlipidemia Major depressive disorder, single episode, moderate (HCC) Major depressive disorder, single episode, moderate 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, with long-term current use of insulin (HCC) Hyperparathyroidism, secondary renal (HCC) Secondary hyperparathyroidism (of renal origin) End stage renal disease on dialysis (HCC) End stage renal disease MINISTERIO on CPAP Obstructive sleep apnea (adult) (pediatric) Diarrhea, unspecified type Low oxygen saturation- Primary Abnormal arterial blood gases SOB (shortness of breath) Shortness of breath Hypertensive 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 congestive heart failure and stage 5 chronic kidney disease on chronic dialysis (HCC) Type 2 diabetes mellitus 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 dialysis, with long-term current use of insulin (HCC) History of endometrial cancer Personal history of malignant neoplasm of other parts of uterus HTN, goal below 140/90 Unspecified essential hypertension S/P gastric bypass Bariatric surgery status SSS (sick sinus syndrome) (HCC) Sinoatrial node dysfunction MINISTERIO on CPAP Obstructive sleep apnea (adult) (pediatric) Morbid obesity with BMI of 40.0-44.9, adult (HCC) Morbid obesity Gastroesophageal reflux disease without esophagitis Esophageal reflux Screening mammogram for breast cancer documented in this encounter Advance Directives Documents on File Type Date Recorded Patient Receptionist Clerk Expl anation HENRY 11/13/2020 POLST DOWNEY VALERIA ORDERS FOR LIFE-SUSTAINING TREATMENT * Full [...] Agents on File Name Relationship Healthcare Agent [facility] Communication Zhen Finley Spouse Health Care Agent Care Teams Dental Office Coordinator Relationship Specialty Start Date End Date Luis Fernando Rojas MD [address] [place] [address] PCP - General Family Medicine 09/23/16 documented as of this encounter
--- OUTSIDE RECORDS SUMMARY | 2024-07-08 02:51 | External Medical Summary | Summary of Care ---
Author Name Unknown Organization [facility] Address [address] [place] [address] Phone [phone] Care Team Providers Care Building Materials Sales Attendant Name Role Phone Luis Fernando Rojas MD Primary Care Provider [phone] Reason for Visit * Reason Comments Diabetic Foot Care Encounter Details Date Type Department Care Team (Late st Contact Info) Description 07/01/2024 10:00 AM EST Office Visit [facility] [address] [place] [address] Calli Avila DPM [address] [place] [address] Onychomycosis*; Type 2 diabetes mellitus 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 dialysis, with long-term current use of insulin ([facility]); Hammer toe of right foot; Callus; ESRD (end stage renal disease) on dialysis ([facility]) Allergies Active Allergy Reactions Criticality Noted Date Comments Salvador Inhibitors Other (Please comment),Cough High HyperKalemia documented as of this encounter (statuses as of 07/01/2024) Medications Melatonin 10 MG Tablet Take 12 [...] directed. Replace every 14 days (supplied through [facility]) 7 Each 3 05/17/20 21 Active CPAP [...] A1c goal of less than 7.0% ([facility]) Use 4 times daily with insulin 400 [...] Each 1 4 6:47 AM EDT 04/20/20 Active [employer] w/Device Kit Use as directed. 1 Kit 4 6:47 AM EDT 04/20/20 Active buPROPion HCl ER (SR) 150 MG Oral Tablet Extended Release 12 Hour (Wellbutrin SR) Take 1 Tablet by mouth every evening. 90 Tablet 4 1:04 PM EST 06/02/20 Active Fluticasone Propionate 50 MCG/ACT Nasal Suspension (Flonase) Administer 2 Sprays into each nostril in the morning. 16 g 1 06/22/20 Active methylPREDNISolo ne 4 MG Oral Tablet Therapy Pack (Medrol Dosepack) follow package directions 21 Tablet 07/01/20 Active Hospital, Clinic, or Other Facility Administered Medication Ordered Dose Route Frequency Start Date End Date Status vitamin b-12 (Cyanocobalamin) inj 1,000 mcgIndications:S/P gastric bypass 1000 mcg IM [id number] 10/15/2022 07/19/2025 Active vitamin b-12 (Cyanocobalamin) inj 1,000 mcgIndications:Morbid obesity with BMI of 40.0-44.9, adult (HCC),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 [id number] 10/17/2023 12/11/19 25 Active documented as of this encounter (statuses as of 07/01/2024) Active Problems Problem Noted Date Diagnosed Date [...] 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 10/15/2022 [employer] OTHER*[id number] 01/01/2022 S/P gastric bypass 01/01/2022 [address] [...] EDT): [facility] since January, Dr. Magallanes. M-W-Briana [...] as of this encounter (statuses as of 07/01/2024) Resolved Problems Problem Noted Date Diagnosed Date [...] Insulin long-term use 11/19/20182018 Overview (05/20/2019): Duplicate correction (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 insulin 11/19/2018 [...] T-tube placement 04/16/2017 05/29/2017 [employer] Other*[id number] 04/13/2013 08/27/2016 Overview (04/13/2013): Study Title: Genomic Markers for Patients with Cardiovascular Disease Project # [id number] Religion Professor: Siena Laws MD [phone] Hypertensive heart disease 03/25/2013 1 07/29/2016 Neuropathy, [...] as of this encounter (statuses as of 07/01/2024) Immunizations Name Administration Dates Next Due COVID-19 mRNA, LNP-s, No Pre serve, 2-Dose Series (Moderna) 04/09/2021,09/23/2020,08/19/2020 COVID-19, LNP-s, No Preserve , Espinoza-sucrose, Ages 12+ (Pfizer) 01/08/2022 COVID-19, MRNA-LNP, PF, 30 M CG/0.3 mL, 12 YRS AND ABOVE, IM (PFIZER-Comirnaty) 06/02/2024 HEPATITIS B VACCINE, RECOMB, 20 MCG/ML, ADULT (HEPLISAV-B) 09/05/2021,05/09/2021,04/04/2021,02/18 Hepatitis B, 20+ yrs 09/16/2018,04/14/2018,03/1104/11/2018 Pneumococcal Conjugate Vacci ne, 20-valent ([id number]) 06/22/2024,12/02/2023(Deferred: - pt states she's already received) [...] No 08/14/2023 Does the household have a [facility] source of income? (Household - for ages [...] documented in this encounter Progress Notes * Calli Avila, DAIANA - 07/01/2024 9:49 AM EST Podiatry Established Patient Note [facility] Name: Candi Finley : 1960 Date: 07/01/2024 CHIEF COMPLAINT: Diabetic Nail Care HISTORY OF [...] over, adult CHF NYHA class I ([facility]) 07/2009 Chronic marginal ulcer Deficiency of other vitamins Vit D Depressive disorder, not elsewhere classified Dialysis patient ([facility]) Diverticulosis of colon (without mention of hemorrhage) 12/02/2013 sigmoid & descending colon DM type 2 causing eye disease ([facility]) DM type 2 causing neurological disease ([facility]) neuropathy since 2006 DM type 2 causing renal disease ([facility]) DM type 2, goal A1c below [address] Monte Dyslipidemia, goal LDL below 100 primarily high triglycerides Endometrial cancer ([facility]) 1993 ESRD (end stage renal disease) on dialysis ([facility]) 03/14/2021 HTN, goal below 130/80 Kidney disease, chronic, stage III (GFR 30-59 ml/min) ([facility]) 10/02/2011 More specified code listed on PL Historical Malignant melanoma of right upper extremity (HCC) 05/07/2021 Malignant neoplasm of corpus uteri (HCC) 1993 Melanoma (HCC) L calf R arm Motion sickness Neuropathy, diabetic (HCC) 02/18/2013 Osteoarthritis of hip mild to mod bilat hip pain Other specified anemias low iron Other specified glaucoma denied by patient PONV (postoperative nausea and vomiting) Renal failure hemodialysis SBO (small bowel obstruction) (HCC) 04/25/2017 Sleep apnea 07/2009 CPAP 11 cm H2O. C-flex 2 Past Surgical History: Procedure Laterality Date ABD WALL HERNIA REPAIR, LAP, REDUCIBLE N/A 01/28/2022 LAPAROSCOPIC VENTRAL/UMBILICAL HERNIA REPAIR, REDUCIBLE W OR W/O MESH performed by Honorio Ashford MD at [facility] AV ACCESS, DIRECT ANASTOMOSIS Right 08/16/2021 ARTERIOVENOUS ANASTOMOSIS OPEN DIRECT ANY SITE performed by Sterling Cates MD at [facility] BREAST BIOPSY Left 12/26/2008 Usual Ductal Hyperplasia BREAST BIOPSY Left 09/20/2010 Benign BX LYMPH NODE DEEP AXIL Right 05/22/2021 BIOPSY LYMPH NODE DEEP AXILLARY OPEN performed by Diamond Rivero MD at OR [facility] COLONOSCOPY, DIAGNOSTIC (RECTUM) 12/02/2013 hyperplastic polyps, diverticulosis, repeat 5 yrs/done @ [facility] COLONOSCOPY, DIAGNOSTIC (RECTUM) 12/11/2017 adenomatous polyps, diverticulosis, repeat 5 yrs/[facility] COLONOSCOPY, DIAGNOSTIC (RECTUM) N/A 02/27/2023 diverticulosis/hemorrhoids/biopsies show adenomatous polyps/recall 5 years/Colonoscopy/[place] CORONARY ANGIOGRAPHY W/LEFT HEART CATH 04/13/2013 CORONARY ANGIOGRAPHY W/LEFT HEART CATH performed by Ulises Reed MD at [facility]ARD[facility] DIALYIS CIRCUIT VASCULAR EMBOLIZATION OCCLUSION ENDOVASC IMAGING Right 11/27/2021 EMBOLIZATION DIALYSIS CIRCUIT performed by Sterling Cates MD at [facility] EGD, FLEXIBLE, DIAGNOSTIC 05/03/2014 mild-mod inflammation/done @ [facility] EGD, FLEXIBLE, DIAGNOSTIC N/A 04/16/2017 ESOPHAGOGASTRODUODENOSCOPY (EGD), FLEXIBLE, TRANSORAL, DIAGNOSTIC performed by Félix Gilliam [facility] EGD, FLEXIBLE, DIAGNOSTIC 05/05/2020 mild-mod inflammation on bx / ESOPHAGOGASTRODUODENOSCOPY (EGD), FLEXIBLE, TRANSORAL, DIAGNOSTIC performed by Adin Borja MD at ENDOSCOPY [facility] EGD, FLEXIBLE, DIAGNOSTIC N/A 04/25/2021 ESOPHAGOGASTRODUODENOSCOPY (EGD), FLEXIBLE, TRANSORAL, DIAGNOSTIC performed by Honorio Almendarez MD atENDOSCOPY [facility] EGD, FLEXIBLE, DIAGNOSTIC 06/13/2021 gastrojejunal anastomosis characterized by ulceration, repeat 2 mo / [facility] IDENTIFY SENTINEL NODE, RADIOACTIVE TRACER Right 05/22/2021 INJECTION PROCEDURE FOR IDENTIFICATION SENTINEL NODE performed by Diamond Rivero MD at OR [facility] INFORMATION Left 2019 Pacemaker placement. INTRO CATH DIALYSIS CIRCUIT DX ANGIOGRAPHY FLUORO S&I Right 10/10/2022 AV FISTULOGRAM DIAGNOSTIC performed by Jose Devine MD at OR [facility] INTRO CATH DIALYSIS CIRCUIT W/TRANSCATH PLACEMENT IV STENT Right 03/19/2022 AV FISTULOGRAM STENT & PERIPHERAL ANGIOPLASTY performed by Jose Devine MD at [facility] INTRO CATH DIALYSIS CIRCUIT W/TRANSCATH PLACEMENT IV STENT Right 05/13/2023 AV FISTULOGRAM STENT & PERIPHERAL ANGIOPLASTY performed by Williams Matt MD at [facility] INTRO CATH DIALYSIS CIRCUIT W/TRANSCATH PLACEMENT IV STENT Right 12/02/2023 AV FISTULOGRAM STENT & PERIPHERAL ANGIOPLASTY performed by Micheal Urena MD at [facility] INTRO CATH DIALYSIS CIRCUIT W/TRANSCATH PLACEMENT IV STENT Right 06/01/2024 AV FISTULOGRAM STENT & PERIPHERAL ANGIOPLASTY performed by Beto Torrez MD at [facility] INTRO CATH DIALYSIS CIRCUIT W/TRANSLUM BALLOON ANGIOPLASTY Right 11/27/2021 AV FISTULOGRAM & PERIPHERAL ANGIOPLASTY performed by Sterling Cates MD at [facility] INTRO CATH DIALYSIS CIRCUIT W/TRANSLUM BALLOON ANGIOPLASTY Right 05/30/2022 AV FISTULOGRAM & PERIPHERAL ANGIOPLASTY performed by Beto Torrez MD at OR [facility] INTRO CATH DIALYSIS CIRCUIT W/TRANSLUM BALLOON ANGIOPLASTY Right 02/25/2023 AV FISTULOGRAM & PERIPHERAL ANGIOPLASTY performed by Jose Devine MD at [facility] INTRO CATH DIALYSIS CIRCUIT W/TRANSLUM BALLOON ANGIOPLASTY Right 03/30/2024 AV FISTULOGRAM & PERIPHERAL ANGIOPLASTY performed by Micheal Urena MD at OR [facility] IR DUPLEX ULTRASOUND (FOR INTERVENTIONAL RADIOLOGY USE ONLY) 03/02/2021 IR FISTULAGRAM AV DIALYSIS SHUNT IR VENOUS ACCESS NON-MEDIPORT 07/18/2022 LAPAROSCOPE PROCEDURE, LIVER N/A 04/16/2017 UNLISTED LAPAROSCOPIC PROCEDURE LIVER performed by Sukumar Polanco MD at [facility] LAPAROSCOPE PROCEDURE, LIVER N/A 01/28/2022 UNLISTED LAPAROSCOPIC PROCEDURE LIVER performed by Honorio Ashford MD at [facility] LAPAROSCOPIC GASTRIC BYPASS/JODY-EN-Y N/A 04/16/2017 LAPAROSCOPIC GASTRIC RESTRICTIVE BYPASS JODY EN Y performed by Sukumar Polanco MD at OR [facility] LAPAROSCOPY; CHOLECYSTECTOMY N/A 04/16/2017 LAPAROSCOPIC CHOLECYSTECTOMY performed by Sukumar Polanco MD at OR [facility] MISCELLANEOUS ORDER ([facility] ONLY) 05/2009 breast biopsy/ [...] performed by Sukumar Polanco MD at OR [facility] REPLACE,COMP,FLACO CENT ACC DEV N/A 03/22/2021 REPLACEMENT COMPLETE TUNNELED CENTRAL CATHETER NO PORT performed by Luis Fernando Hassan DO at OR [facility] REVISE STOMACH-BOWEL FUSION N/A 01/28/2022 REVISION GASTROJEJUNAL ANASTOMOSIS performed by Honorio Ashford MD at OR [facility] RMV MALG LSN TRK/ARM/LG >4.0CM Right 05/22/2021 EXCISION MALIGNANT TRUNK ARM LEG OVER 4CM performed by Diamond Rivero MD at OR [facility] RPR AA HERNIA 1ST 3-10 CM REDUCIBLE N/A 12/11/2022 INCISIONAL/VENTRAL/SPIGELIAN HERNIA REPAIR INITIAL 3-10 CM REDUCIBLE performed by Eros Dash MD at [facility] TOTAL ABD HYSTERECTOMY W/WO REMOVAL OF TUBE(S) Bilateral age 33 TOTAL HYSTERECTOMY TAHBSO (endometrial ca) TRANSECTION VAGUS NRV,TRUNCAL N/A 01/28/2022 LAPAROSCOPIC TRANSECTION VAGUS NERVES TRUNCAL performed by Honorio Ashford MD at [facility] UPPER GI ENDOSCOPY Family History Problem Relation [...] level: Not on file Occupational History Employer: [employer] Financial resource strain: Not on file Food [...] file Gets together: Not on file Attends sabianism service: Not on file Active member of [...] Not on file Social History Narrative 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 Aspirin 81 MG Oral Tablet Chewable Take 1 Tab by mouth at bedtime. with food. 90 Tab 3 FreeStyle Jennifer 2 Sensor Use as directed. Replace every 14 days (supplied through [facility]) 7 Each 3 CPAP every night at bedtime. 12 ProRenal + D Oral Tablet Take by mouth 1 Tablet daily . Vitamin D 125 MCG (5000 UT) Oral Capsule Take 1 Capsule by mouth every morning. Childrens Chewable Vitamins [...] by mouth every 6 hours as needed. Calcium Citrate-Vitamin D 315-5 MG-MCG Oral Tablet [...] TWO CAPSULES WITH SNACKS 1300 Capsule 3 Levothyroxine Sodium 100 MCG Oral Tablet (Levoxyl) TAKE 1 TABLET BY MOUTH DAILY AT LEAST 30 MINUTESPRIOR TO FIRST MEAL OF THE DAY OR OTHER MEDICATIONS 90 Tablet 3 Gabapentin 300 MG Oral Capsule (Neurontin) Take 1 Capsule by mouth at bedtime. Follow up with your primary care provider for further management. 90 Capsule 3 Insulin Glargine Solostar 100 UNIT/ML Subcutaneous [...] as needed for Pain. 100 g 2 Citalopram Hydrobromide 20 MG Oral Tablet (CeleXA) Take 1 Tablet by mouth in the morning. amLODIPine Besylate 5 MG Oral Tablet (Norvasc) TAKE ONE TABLET BY MOUTH EVERY DAY IN THE MORNING 90Tablet 1 Omeprazole 20 MG Oral Capsule Delayed Release (PriLOSEC) Take 1 Capsule by mouth in the morning. 100 Capsule 3 Carvedilol 12.5 MG Oral Tablet (Coreg) Take 1 Tablet by mouth in the morning and 1 Tablet before bedtime. 180 Tablet 4 Atorvastatin Calcium 40 MG Oral Tablet (Lipitor) Take 0.5 Tablets by mouth in the morning. OneTouch Verio In Vitro Strip (Glucose Blood) To test blood sugar 4 times daily. 400 Strip 1 OneTouch Delica Lancets 33G To test blood sugar 4 times daily. 400 Each 1 OneTouch Verio w/Device Kit Use as directed. 1 Kit 0 buPROPion HCl ER (SR) 150 MG Oral Tablet Extended Release 12 Hour (Wellbutrin SR) Take 1 Tablet by mouth every evening. 90 Tablet 0 Fluticasone Propionate 50 MCG/ACT Nasal Suspension (Flonase) Administer 2 Sprays into each nostril in the morning. 16 g 1 methylPREDNISolone 4 MG Oral Tablet Therapy Pack (Medrol Dosepack) follow package directions 21 Tablet 0 Current Facility-Administered Medications Medication Dose Route Frequency Provider Last Rate Last Admin vitamin b-12 (Cyanocobalamin) inj 1,000 mcg 1,000 mcg Intramuscular Q12 Weeks Luis Fernando Rojas MD 1,000 mcg at 06/02/24 1019 vitamin b-12 (Cyanocobalamin) inj 1,000 mcg 1,000 mcg Intramuscular Q12 Weeks Cleo Fonseca PA-C ALLERGIES: Review of patient's allergies indicates: Allergen Reactions Salvador Inhibitors Other (Please comment) and Cough HyperKalemia REVIEW OF SYSTEMS: CONSTITUTIONAL: No change [...] Continue wearing diabetic supportive shoes. - Callus debrided with an electric bur x4. - Pt to RTC in 3 months for further care. Instructed pt to call sooner with any problems or questions. Calli Avila DPM documented in this encounter Nursing Notes * Elisa Zuñiga LPN - 07/01/2024 9:45 AM EST Pt presents for routine diabetic nail care, no pain in feet. BSG 127 this morning. documented in this encounter Plan of Treatment Upcoming Encounters Date Type Department Care Team (Late st Contact Info) Description 07/05/2024 10:00 AM EST Scheduled Telephone [facility] [place] [address] Heidi Garcia RN [address] [facility] [place] [address] 07/13/2024 10:00 AM EST Imaging Radiology [facility] [facility] 132 [facility] [place] [address] 08/10/2024 8:00 AM EST Office Visit Gastroenterology, [facility] [address] [facility] [place] [address] Emi Queen CRNP 132 [facility] [place] [address] 08/10/2024 2:40 PM EST Office Visit [facility]at[facility], [facility] [phone] Joanne Parks PA-C [address] [place] [address] [place] [address] 09/02/2024 10:00 AM EST Nurse Only Nutrition & Weight Management, [facility] [address] [facility] [place] [address] [facility], Nurse Gi Nutrition [facility] 132 [facility] [place] [address] 09/30/2024 11:00 AM EDT Office Visit Podiatry [facility] [address] [facility] [place] [address] Calli Avila DPM 132 [facility] [place] [address] Scheduled Procedures Name Priority Associated Diagnoses Date/Ti [...] this encounter Medical Devices Implanted Type Area Cfo Controller Device Identifier Shelf Expiration Date Model / Serial / Lot Coil Vortex 35 Pltinm [id number] - [id number] Implanted:Qty: 1 on 11/27/2021 by Sterling Cates MD at [facility] Right: Upper Arm [employer] : NEURO INTR [id number] 08/15/2024 [id number] 1 / / [id number] Coil Vortex 35 Pltinm [id number] - [id number] Implanted:Qty: 1 on 11/27/2021 by Sterling Cates MD at [facility] Right: Upper Arm [employer] : NEURO INTR [id number] 08/15/2024 [id number] 1 / / [id number] Coil Vortex 35 Pltinm [id number] - [id number] Implanted:Qty: 1 on 11/27/2021 by Sterling Cates MD at [facility] Right: Upper Arm [employer] : NEURO INTR [id number] 08/15/2024 [id number] 1 / / [id number] Coil Vortex 35 Pltinm [id number] - [id number] Implanted:Qty: 1 on 11/27/2021 by Sterling Cates MD at [facility] Right: Upper Arm [employer] : NEURO INTR [id number] 05/16/2024 [id number] 1 / / [id number] Azur 35 Detachable 5mm 11cm - [id number] Implanted:Qty: 1 on 03/19/2022 by Jose Devine MD at [facility] Right: Wrist [employer] [id number] 10/18/2025 [id number] / / [id number] Azur 35 Detachable 5mm 11cm - [id number] Implanted:Qty: 1 on 03/19/2022 by Jose Devine MD at [facility] Right: Wrist [employer] [id number] 06/19/2026 [id number] / / [id number] Mesh Flat Sheet 10x14 [id number] - [id number] Implanted:Qty: 1 on 12/11/2022 by Eros Dash MD at [facility] N/A: Abdomen CR BARD : DAVOL [id number] 06/17/2027 [id number] / / [id number] documented as of this encounter Visit Diagnoses Diagnosis Marginal ulcer- Primary Gastrojejunal ulcer, unspecified as acute or chronic, without mention of hemorrhage, perforation, or obstruction ESRD (end stage renal disease) on dialysis ([facility]) End stage renal disease Hypertensive 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 congestive heart failure and stage 5 chronic kidney disease on chronic dialysis ([facility]) Acute posthemorrhagic anemia Type 2 diabetes mellitus 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 dialysis, with long-term current use of insulin ([facility]) Hypothyroidism (acquired) Unspecified hypothyroidism Malignant melanoma of right upper extremity ([facility]) Aortic atherosclerosis ([facility]) Atherosclerosis of aorta Diabetic polyneuropathy associated with type 2 diabetes mellitus ([facility]) Advanced care planning/counseling discussion- Primary Other specified counseling Hypertensive 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 congestive heart failure and stage 5 chronic kidney disease on chronic dialysis ([facility]) Presence of cardiac pacemaker Cardiac pacemaker in situ SSS (sick sinus syndrome) ([facility]) Sinoatrial node dysfunction MINISTERIO on CPAP Obstructive sleep apnea (adult) (pediatric) Hypothyroidism (acquired) Unspecified hypothyroidism Type 2 diabetes mellitus 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 dialysis, with long-term current use of insulin ([facility]) S/P gastric bypass Bariatric surgery status ESRD (end stage renal disease) on dialysis ([facility]) End stage renal disease Recurrent ventral incisional hernia Incisional hernia without mention of obstruction or gangrene NO SHOW/FAILED TO KEEP APPOINTMENT- Primary Chronic diastolic heart failure ([facility])- Primary Chronic diastolic heart failure HTN, goal below 140/90 Unspecified essential hypertension Type 2 diabetes mellitus with hemoglobin A1c goal of less than 7.0% ([facility]) Hypothyroidism (acquired) Unspecified hypothyroidism Dyslipidemia, goal LDL below 100 Other and unspecified hyperlipidemia Major depressive disorder, single episode, moderate ([facility]) Major depressive disorder, single episode, moderate 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, with long-term current use of insulin ([facility]) Hyperparathyroidism, secondary renal (HCC) Secondary hyperparathyroidism (of renal origin) End stage renal disease on dialysis (HCC) End stage renal disease MINISTERIO on CPAP Obstructive sleep apnea (adult) (pediatric) Diarrhea, unspecified type Onychomycosis- Primary Dermatophytosis of nail Type 2 diabetes mellitus 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 dialysis, with long-term current use of insulin ([facility]) Hammer toe of right foot Callus Corns and callosities ESRD (end stage renal disease) on dialysis (HCC) End stage renal disease Screening mammogram for breast cancer documented in this encounter Advance Directives Documents on File Type Date Recorded 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
--- OUTSIDE RECORDS SUMMARY | 2024-07-08 02:51 | External Medical Summary | Summary of Care ---
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 Also pt's tailbonolegario has been sore since she fell Encounter Details Date Type Department Care Team (Late st Contact Info) Description 06/22/2024 7:40 AM EST Office Visit [facility][Note 3] [address] [place] [address] Mohini Marley MD [address], [place] [id number] Chronic sinusitis, unspecified location*; Risk and functional assessment; Personal history of fall; Injury of coccyx, initial encounter; Allergic rhinitis, unspecified seasonality, unspecified trigger; Type 2 diabetes mellitus with hemoglobin A1c goal of less than 7.0% ([facility]); Need for pneumococcal vaccination Allergies Active Allergy Reactions Criticality Noted Date Comments Salvador Inhibitors Other (Please comment),Cough High HyperKalemia documented as of this encounter (statuses as of 06/22/2024) Medications Melatonin 10 MG Tablet Take 12 [...] directed. Replace every 14 days (supplied through [facility]) 7 Each 3 05/17/20 Active CPAP every night at bedtime. 12 [...] 4 6:47 AM EDT 04/20/20 24 Active WeeshTouch Delica Lancets 33G To test blood sugar 4 times daily. 400 Each 1 4 6:47 AM EDT 04/20/20 Active WeeshTouch Verio w/Device Kit Use as directed. 1 [...] the morning. 16 g 1 06/22/20 Active Amoxicillin-Pot Clavulanate 875-125 MG Oral Tablet (Augmentin) Take 1 Tablet by mouth in the morning and 1 Tablet before bedtime. Do all this for 7 days. 17 Tablet 06/22/20 24 024 Active Hospital, Clinic, or Other Facility Administered Medication Ordered Dose Route Frequency Start Date End Date Status vitamin b-12 (Cyanocobalamin) inj 1,000 mcgIndications:S/P gastric bypass 1000 mcg IM [id number] 10/15/2022 07/19/2025 Active vitamin b-12 (Cyanocobalamin) inj 1,000 mcgIndications:Morbid obesity with BMI of 40.0-44.9, adult (HCC),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 [id number] 10/17/2023 12/11/19 25 Active documented as of this encounter (statuses as of 06/22/2024) Active Problems Problem Noted Date Diagnosed Date [...] 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 10/15/2022 [facility] OTHER*[id number] 01/01/2022 S/P gastric bypass 01/01/2022 Dialysis AV [...] EDT): [facility] since January, Dr. Magallanes. M-W-F [...] 8:45 AM EDT): Gabapentin 600 mg at [facility] Assessment & Plan (05/07/2021 11:11 AM EDT): [...] as of this encounter (statuses as of 06/22/2024) Resolved Problems Problem Noted Date Diagnosed Date [...] Insulin long-term use 11/19/20182018 Overview (05/20/2019): Duplicate custodial (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 insulin 11/19/2018 [...] T-tube placement 04/16/2017 05/29/2017 [employer] Other*[id number] 04/13/2013 08/27/2016 Overview (04/13/2013): Study Title: Genomic Markers for Patients with Cardiovascular Disease Project # [id number] Manager Stars: Siena Laws MD [phone] Hypertensive heart disease 03/25/2013 1 07/29/2016 Neuropathy, [...] as of this encounter (statuses as of 06/22/2024) Immunizations Name Administration Dates Next Due COVID-19 mRNA, LNP-s, No Pre serve, 2-Dose Series (Moderna) 04/09/2021,09/23/2020,08/19/2020 COVID-19, LNP-s, No Preserve , Espinoza-sucrose, Ages 12+ (Pfizer) 01/08/2022 COVID-19, MRNA-LNP, PF, 30 M CG/0.3 mL, 12 YRS AND ABOVE, IM (PFIZER-Comirnaty) 06/02/2024 HEPATITIS B VACCINE, RECOMB, 20 MCG/ML, ADULT (HEPLISAV-B) 09/05/2021,05/09/2021,04/04/2021,02/18 Hepatitis B, 20+ yrs 09/16/2018,04/14/2018,03/1104/11/2018 Pneumococcal Conjugate Vacci ne, 20-valent ([id number]) 06/22/2024,12/02/2023(Deferred: - pt states she's already received) [...] Passive Smoke Exposure: Never Smokeless Tobacco: Never Tobacco Cessation:Counseling Given: [...] No 08/14/2023 Does the household have a [facility] source of income? (Household - for ages [...] Sign Reading Time Taken Comments Blood Pressure 132/70 06/22/2024 7:31 AM EST Pulse 94 06/22/2024 7:31 AM EST Temperature 36.3 C (97.3 F) 06/22/2024 7:31 AM ES T Respiratory Rate 18 06/22/2024 7:31 AM EST Oxygen Saturation 97% 06/22/2024 7:31 AM EST Inhaled Oxygen Concentration - - Weight 104.7 kg (230 lb 14.4 oz) 06/22/2024 7:31 AM EST Height - - Body Mass Index 40.9 06/02/2024 9:38 AM EST documented in this encounter Functional Status * [...] Rabia Granados RN documented in this encounter Patient Instructions * Patient Instructions* Rosa Barker LPN - 06/22/2024 7:34 AM EST Take augmentin twice daily for 7 days Netti pot or saline twice daily Then use flonase daily Take claritin or zyrtec daily for 1-2 wks Patient Instructions - Fall Prevention (This education is for all patients over 65 regardless of symptoms) Remember to take your current medications as prescribed. In order to prevent falls, you are encouraged to: Exercise Utilize assistive/adaptive devices Avoid multifocal lenses when walking Avoid hazards in home Maintain a regular toileting schedule Any questions please contact our office. Preventing Falls in the Home (This education is for all patients over 65 regardless of symptoms) As you get older, falls are more likely. Thats because your reaction time slows. Your muscles and joints may also get stiffer, making them less flexible. Illness, medications, and vision changes can also affect your balance. A fall could leave you unable to live on your own. To make your home safer, follow these tips: Floors Put nonskid pads under area rugs Remove throw rugs Replace worn floor coverings Tack carpets firmly to each step on carpeted stairs. Put nonskid strips on the edges of uncarpeted stairs Keep floors and stairs free of clutter and cords Arrange furniture so there are clear pathways Clean up any spills right away Bathrooms Install grab bars in the tub or shower Apply nonskid strips or put a nonskid rubber mat in the tub or shower Sit on a bath chair to bathe Use bathmats with nonskid backing Lighting Keep a flashlight in each room Put a nightlight along the pathway between the bedroom and the bathroom [employer] Patient Education Copyright 2008 - 2010 [employer] except where otherwise noted Preventing Falls: Exercises to Improve Balance, Flexibility, Strength, and Staying Power (This education is for all patients over 65 regardless of symptoms) Certain types of exercises may help make you less likely to fall. Try the ones below. Or do other exercises that your healthcare provider suggests. Depending on your health, you may need to start slowly. Dont let that stop you. Even small amounts of exercise can help you. Be sure to talk to yourhealthcare provider before starting any exercise program. Improve Balance Many types of exercise can help improve balance. Cooper chi and yoga are good examples. Heres another one to try. You can do it anytime and almost anywhere. Stand next to a counter or solid support. Push yourself up onto your tiptoes. Hold for 5 seconds. If you start to lose your balance, hold on to the counter. Rest and repeat 5 times. Work up to holding for 20 to 30 seconds, if you can. Increase Flexibility Being more flexible makes it easier for you to move around safely. Try exercises like the seated hamstring stretch. Sit in a chair and put one foot on a stool. Straighten your leg and reach with both hands down either side of your leg. Reach as far down your leg as you can. Hold for about 20 seconds. Go back to the starting position. Then repeat 5 times. Switch legs. Build Strength Resistance exercises help build strength. You can do them without equipment. Or you can use weights, elastic bands, or special machines. One such exercise is called the biceps curl. You can hold a 1 pound weight or even a can of soup. Do this exercise at least 3 times a week. Strive for everyday. Sit up straight in a chair. Keep your elbow close to your body and your wrist straight. Bend your arm, moving your hand up to your shoulder. Then slowly lower your arm. Repeat 5 times. Switch to the other arm. Build Your Staying Power Aerobic exercises make your heart and lungs stronger so you can keep moving longer. Walking and swimming are two of the best types of exercises you can do. Using a stationary bike is great, too. Find an aerobic exercise that you enjoy. Start slowly and build up. Even 5 minutes is helpful. Aimfor a goal of 30 minutes, at least 3 times a week. You dont have to do 30 minutes in one session. Break it up and walk a little throughout the day. More Helpful Tips Start easy. Slowly work up to doing more. Talk with your healthcare provider about the best exercises for you. Call senior centers or health clubs about exercise programs. If needed, have a family member watch you walk every so often to check your stability. Exercise with a friend. Choose an activity you both enjoy. Try exercises that you can do anytime, anywhere. Here are two examples. Have someone with you when you first try these: Practice walking by placing one foot right in front of the other. Stand up and sit down 10 times. Repeat this throughout the day. [employer] Patient Education Copyright 2009 - 2010 Aure except where otherwise noted. Preventing Falls: Moving Safely Using a Cane or Walker (This education is for all patients over 65 regardless of symptoms) Keep the cane away from your feet so you dont trip. A walking aid, such as a cane or walker, can help you stay more independent and avoid falls. Remember to keep your walking aid within easy reach when youre in a chair or in bed. And learn how to use it safely so you dont injure yourself. Using a Cane If you have a stronger side, hold the cane on that side. Get your balance. Move the cane and your weaker leg forward. Support your weight on both the cane and your weaker side. Step with your stronger leg. Start again from step 1. If youre using a folding walker, be sure you know how to lock it open. Check that its locked open before each use. Using a Walker Roll the walker (or lift it, if youre using one without wheels) forward about 12 inches. Step forward with your weaker leg first. Use the walker to help keep your balance. Bring your other foot forward to the center of the walker. Start again from step 1. Helpful Tips Check with your healthcare provider about the right walking aid to use. Ask about a walker with a seat attached. Check the tips of your cane or walker to make sure they have nonskid covers. Move slowly from room to room. Dont huston. Sit down to get dressed. Use a rupert pack or backpack to keep your hands free. Get help for jobs that mean climbing, even on a stepstool. [employer] Patient Education Copyright 2008 - 2010 Aure except where otherwise noted. Urinary Incontinence Plan of Care Documentation: (This education is for all patients over 65 regardless of symptoms) Current medications reconciled. Patient encouraged to: Practice kegal exercises Provide education materials Use the restroom every 2 hours throughout the day Limit caffeine, alcohol, spicy foods and acidic foods Keep a bladder diary Limit fluid intake 3-4 hours before bed Lose weight Prevent constipation Take fluid pills at a time when you can get to the bathroom quickly Control sugar better if diabetic Limit fluid intake to 60 oz. per day Wear support stockings (TEDs)if you have edema Janice Orr LPN 06/22/2024 Kegel Exercises Kegel exercises dont require special clothing or equipment. Theyre easy to learn and simple to do. And if you do them right, no one can tell youre doing them, so they can be done almost anywhere. Your doctor, nurse, or physical therapist can answer any questions you have and help you get started. A Weak Pelvic Floor The pelvic floor muscles may weaken due to aging, and vaginal childbirth, injury, surgery, chronic cough, or lack of exercise. If the pelvic floor is weak, your bladder and other pelvic organs may sag out of place. The urethra may also open too easily and allow urine to leak out. Kegel exercises can help you strengthen your pelvic floor muscles so they can better support the pelvic organs and control urine flow. How Kegel Exercises Are Done Try each of the Kegel exercises described below. When youre doing them, try not to move your leg, buttock, or stomach muscles. While youre urinating, try to stop the flow of urine. Start and stop it as often as you can. Contract as if you were stopping your urine stream, but do it when youre not urinating. Tighten your rectum as if trying not to pass gas. Contract your anus, but dont move your buttocks. Helpful Hints Do your Kegels as often as you can. The more you do them, the faster youll feel the results. Pick an activity you do often as a reminder. For instance, do your Kegels every time you sit down. Tighten your pelvic floor before you sneeze, get up from a chair, cough, laugh, or lift. This protects your pelvic floor from injury and can help prevent urine leakage. Try to hold each Kegel for a slow count to five. You probably wont be able to hold them for thatlong at first, but keep practicing. It will get easier as your pelvic floor gets stronger. Eventually, special weights that you place in your vagina may be recommended to help make your Kegels even more effective. [employer] Patient Education Copyright 2009 - 2010 Aure except where otherwise noted. Here are some helpful tips for your urinary incontinence: (This education is for all patients over 65 regardless of symptoms) Practice Kegel exercises Use the restroom every 2 hours throughout the day Limit caffeine, alcohol, spicy foods, and acidic foods Keep a bladder diary Limit fluid intake 3-4 hours before bed Lose weight Prevent constipation Take fluid pills at a time when can get to the bathroom quickly Control sugar better if diabetic Limit fluid intake to 60 oz. per day Any questions, please feel free to contact our office. ~~PATIENT INSTRUCTIONS FOR PNEUMOCOCCAL VACCINE~~ Possible side effects of pneumococcal vaccine, (pneumonia shot), are usually mild and can include: 1. Soreness or redness at injection site 2. Low grade fever 3. Body aches You may use Tylenol/Acetaminophen as needed for these symptoms. LET YOUR DOCTOR KNOW IMMEDIATELY IF YOU HAVE DIFFICULTY BREATHING OR SWALLOWING, EXPERIENCE ITCHINGOF FEET OR HANDS, HAVE SWELLING OF EYES, FACE OR INSIDE OF NOSE. documented in this encounter Progress Notes * Rosa Barker LPN - 06/22/2024 8:20 AM EST Immunization Administration Documentation Time Out Procedure Performed: Yes Patient Identified (Ask Name/Date of ): Yes Does the patient have a fever greater than 101 degrees today? No Patient allergic to latex? No VFC Stock: No Immunization(s) verified: Yes, Immunization Name: Prevnar 20 (PCV20), VIS Sheet(s) given: Yes Verified Side and Site: Yes Verified Shot(s) with Parent(s)/Patient: Yes * Mohini Marley MD - 06/22/2024 7:52 AM EST Subjective Candi Finley is a 63 year old female. Chief Complaint Patient presents with Acute Pt here today due to having a possible sinus infection. Also pt's tailbone has been sore since she fell HPI: Here for possible sinus infection Runny nose drainage, sore throat last 3 wks Denies fever, chest congestion, SOB Has some cough, sinus pressure Also fell on bottom 2 wks ago , pain persists moderate level Will get an xray Known type 2 DM Last hba1c 7.7 PMH: 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 Type 2 diabetes mellitus with hemoglobin A1c goal of less than 7.0% (HCC) Vitamin D deficiency HTN, goal below 140/90 Major depressive disorder, recurrent episode, moderate with seasonal pattern (HCC) Rosacea Hypothyroidism (acquired) Mitral annular calcification Type 2 diabetes mellitus with diabetic polyneuropathy, with long-term current use of insulin ([facility]) Chronic diastolic heart failure ([facility]) History of endometrial cancer Hyperparathyroidism, secondary renal (HCC) MINISTERIO on CPAP Stable proliferative diabetic retinopathy of both eyes associated with type 2 diabetes mellitus ([facility]) SALVADOR inhibitor intolerance SSS (sick sinus syndrome) ([facility]) PAT (paroxysmal atrial tachycardia) ([facility]) Gastroesophageal reflux disease without esophagitis Hypertensive 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 congestive heart failure and stage 5 chronic kidney disease on chronic dialysis ([facility]) Morbid obesity with BMI of 40.0-44.9, adult ([facility]) Postsurgical malabsorption, not elsewhere classified Diabetic gastroparesis ([facility]) Type 2 diabetes mellitus 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 dialysis, with long-term current use of insulin ([facility]) Presence of cardiac pacemaker End stage renal disease on dialysis ([facility]) Marginal ulcer Aortic atherosclerosis ([facility]) Dialysis AV fistula malfunction ([facility]) [facility] OTHER*[id number] S/P gastric bypass 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 Aspirin 81 MG Oral Tablet Chewable Take 1 Tab by mouth at bedtime. with food. 90 Tab 3 FreeStyle Jennifer 2 Sensor Use as directed. Replace every 14 days (supplied through [facility]) 7 Each 3 CPAP every night at [...] nostril in the morning. 16 g 1 Amoxicillin-Pot Clavulanate 875-125 MG Oral Tablet (Augmentin) Take 1 Tablet by mouth in the morning and 1 Tablet before bedtime. Do all this for 7 days. 17 Tablet 0 Current Facility-Administered Medications Medication Dose Route Frequency Provider Last Rate Last Admin vitamin b-12 (Cyanocobalamin) inj 1,000 mcg 1,000 mcg Intramuscular Q12 Weeks Luis Fernando Rojas MD 1,000 mcg at 06/02/24 1019 vitamin b-12 (Cyanocobalamin) inj 1,000 mcg 1,000 mcg Intramuscular Q12 Weeks Cleo Fonseca PA-C Past Medical History: Diagnosis Date Body mass index 40 and over, adult CHF NYHA class I ([facility]) 07/2009 Chronic marginal ulcer Deficiency of other vitamins Vit D Depressive disorder, not elsewhere classified Dialysis patient ([facility]) Diverticulosis of colon (without mention of hemorrhage) 12/02/2013 sigmoid & descending colon DM type 2 causing eye disease ([facility]) DM type 2 causing neurological disease ([facility]) neuropathy since 2006 DM type 2 causing renal disease ([facility]) DM type 2, goal A1c below [address] Monte Dyslipidemia, goal LDL below 100 primarily high triglycerides Endometrial cancer ([facility]) 1993 ESRD (end stage renal disease) on dialysis ([facility]) 03/14/2021 HTN, goal below 130/80 Kidney disease, chronic, stage III (GFR 30-59 ml/min) ([facility]) 10/02/2011 More specified code listed on PL Historical Malignant melanoma of right upper extremity ([facility]) 05/07/2021 Malignant neoplasm of corpus uteri ([facility] [...] performed by Honorio Ashford MD at [place] [facility] AV ACCESS, DIRECT ANASTOMOSIS Right 08/16/2021 ARTERIOVENOUS ANASTOMOSIS OPEN DIRECT ANY SITE performed by Sterling Cates MD at [facility] BREAST BIOPSY Left 12/26/2008 Usual Ductal Hyperplasia BREAST BIOPSY Left 09/20/2010 Benign BX LYMPH NODE DEEP AXIL Right 05/22/2021 BIOPSY LYMPH NODE DEEP AXILLARY OPEN performed by Diamond Rivero MD at OR [facility] COLONOSCOPY, DIAGNOSTIC (RECTUM) 12/02/2013 hyperplastic polyps, diverticulosis, repeat 5 yrs/done @ [facility] COLONOSCOPY, DIAGNOSTIC (RECTUM) 12/11/2017 adenomatous polyps, diverticulosis, repeat 5 yrs/[facility] COLONOSCOPY, DIAGNOSTIC (RECTUM) N/A 02/27/2023 diverticulosis/hemorrhoids/biopsies show adenomatous polyps/recall 5 years/Colonoscopy/NC CORONARY ANGIOGRAPHY W/LEFT HEART CATH 04/13/2013 CORONARY ANGIOGRAPHY W/LEFT HEART CATH performed by Ulises Reed MD at [facility]ARDIAC [facility] DIALYIS CIRCUIT VASCULAR EMBOLIZATION OCCLUSION ENDOVASC IMAGING Right 11/27/2021 EMBOLIZATION DIALYSIS CIRCUIT performed by Sterling Cates MD at [facility] EGD, FLEXIBLE, DIAGNOSTIC 05/03/2014 mild-mod inflammation/done @ [facility] EGD, FLEXIBLE, DIAGNOSTIC N/A 04/16/2017 ESOPHAGOGASTRODUODENOSCOPY (EGD), FLEXIBLE, TRANSORAL, DIAGNOSTIC performed by Sukumar Polanco MDat [place] [facility] EGD, FLEXIBLE, DIAGNOSTIC 05/05/2020 mild-mod inflammation on bx / ESOPHAGOGASTRODUODENOSCOPY (EGD), FLEXIBLE, TRANSORAL, DIAGNOSTIC performed by Adin Borja MD at ENDOSCOPY [facility] EGD, FLEXIBLE, DIAGNOSTIC N/A 04/25/2021 ESOPHAGOGASTRODUODENOSCOPY (EGD), FLEXIBLE, TRANSORAL, DIAGNOSTIC performed by Honorio Almendarez MD atENDOSCOPY [facility] EGD, FLEXIBLE, DIAGNOSTIC 06/13/2021 gastrojejunal anastomosis characterized by ulceration, repeat 2 mo / [facility] IDENTIFY SENTINEL NODE, RADIOACTIVE TRACER Right 05/22/2021 INJECTION PROCEDURE FOR IDENTIFICATION SENTINEL NODE performed by Diamond Rivero MD at OR [facility] INFORMATION Left 2019 Pacemaker placement. INTRO CATH DIALYSIS CIRCUIT DX ANGIOGRAPHY FLUORO S&I Right 10/10/2022 AV FISTULOGRAM DIAGNOSTIC performed by Jose Devine MD at OR [facility] INTRO CATH DIALYSIS CIRCUIT W/TRANSCATH PLACEMENT IV STENT Right 03/19/2022 AV FISTULOGRAM STENT & PERIPHERAL ANGIOPLASTY performed by Jose Devine MD at [place] [facility] INTRO CATH DIALYSIS CIRCUIT W/TRANSCATH PLACEMENT IV STENT Right 05/13/2023 AV FISTULOGRAM STENT & PERIPHERAL ANGIOPLASTY performed by Williams Matt MD at [facility] INTRO CATH DIALYSIS CIRCUIT W/TRANSCATH PLACEMENT IV STENT Right 12/02/2023 AV FISTULOGRAM STENT & PERIPHERAL ANGIOPLASTY performed by Micheal Urena MD at [facility] INTRO CATH DIALYSIS CIRCUIT W/TRANSCATH PLACEMENT IV STENT Right 06/01/2024 AV FISTULOGRAM STENT & PERIPHERAL ANGIOPLASTY performed by Beto Torrez MD at [facility] INTRO CATH DIALYSIS CIRCUIT W/TRANSLUM BALLOON ANGIOPLASTY Right 11/27/2021 AV FISTULOGRAM & PERIPHERAL ANGIOPLASTY performed by Sterling Cates MD at [facility] INTRO CATH DIALYSIS CIRCUIT W/TRANSLUM BALLOON ANGIOPLASTY Right 05/30/2022 AV FISTULOGRAM & PERIPHERAL ANGIOPLASTY performed by Beto Torrez MD at OR [facility] INTRO CATH DIALYSIS CIRCUIT W/TRANSLUM BALLOON ANGIOPLASTY Right 02/25/2023 AV FISTULOGRAM & PERIPHERAL ANGIOPLASTY performed by Jose Devine MD at [facility] INTRO CATH DIALYSIS CIRCUIT W/TRANSLUM BALLOON ANGIOPLASTY Right 03/30/2024 AV FISTULOGRAM & PERIPHERAL ANGIOPLASTY performed by Micheal Urena MD at [facility] IR DUPLEX ULTRASOUND (FOR INTERVENTIONAL RADIOLOGY USE ONLY) 03/02/2021 IR FISTULAGRAM AV DIALYSIS SHUNT IR VENOUS ACCESS NON-MEDIPORT 07/18/2022 LAPAROSCOPE PROCEDURE, LIVER N/A 04/16/2017 UNLISTED LAPAROSCOPIC PROCEDURE LIVER performed by Sukumar Polanco MD at [place] [facility] LAPAROSCOPE PROCEDURE, LIVER N/A 01/28/2022 UNLISTED LAPAROSCOPIC PROCEDURE LIVER performed by Honorio Ashford MD at [place] [facility] LAPAROSCOPIC GASTRIC BYPASS/JODY-EN-Y N/A 04/16/2017 LAPAROSCOPIC GASTRIC RESTRICTIVE BYPASS JODY EN Y performed by Sukumar Polanco MD at [facility] LAPAROSCOPY; CHOLECYSTECTOMY N/A 04/16/2017 LAPAROSCOPIC CHOLECYSTECTOMY performed by Sukumar Polanco MD at [place] [facility] MISCELLANEOUS ORDER ([facility] ONLY) 05/2009 breast biopsy/ Usual ductal hyperplasia MISCELLANEOUS ORDER ([facility] ONLY) 1990 arthroscopic knee (right) MISCELLANEOUS ORDER [...] performed by Sukumar Polanco MD at [place] [facility] REPLACE,COMP,FLACO CENT ACC DEV N/A 03/22/2021 REPLACEMENT COMPLETE TUNNELED CENTRAL CATHETER NO PORT performed by Luis Fernando Hassan DO at OR [facility] REVISE STOMACH-BOWEL FUSION N/A 01/28/2022 REVISION GASTROJEJUNAL ANASTOMOSIS performed by Honorio Ashford MD at [place] [facility] RMV MALG LSN TRK/ARM/LG >4.0CM Right 05/22/2021 EXCISION MALIGNANT TRUNK ARM LEG OVER 4CM performed by Diamond Rivero MD at OR [facility] RPR AA HERNIA 1ST 3-10 CM REDUCIBLE N/A 12/11/2022 INCISIONAL/VENTRAL/SPIGELIAN HERNIA REPAIR INITIAL 3-10 CM REDUCIBLE performed by Eros Dash MD at [place] [facility] TOTAL ABD HYSTERECTOMY W/WO REMOVAL OF TUBE(S) Bilateral age 33 TOTAL HYSTERECTOMY TAHBSO (endometrial ca) TRANSECTION VAGUS NRV,TRUNCAL N/A 01/28/2022 LAPAROSCOPIC TRANSECTION VAGUS NERVES TRUNCAL performed by Honorio Ashford MD at [place] [facility] UPPER GI ENDOSCOPY Review of patient's allergies indicates: Allergen Reactions Salvador Inhibitors Other (Please comment) and Cough HyperKalemia Family History Problem Relation Name Age of [...] Cancer Aunt (Paternal) Breast Cancer Cousin (Paternal) Family Status Relation Status Mo at age 80 dementia Fa Sis Alive PAUNT MGMA MGFA PGMA PGFA PAUNT (Not Specified) PCOUS (Not Specified) Social History Socioeconomic History Marital status: Spouse name: Not on file Number of children: 0 Years of education: Not on file Highest education level: Not on file Occupational History Employer: [employer] Tobacco Use Smoking status: Never Passive exposure: Never Smokeless tobacco: Never Vaping Use Vaping status: Never Used Substance and Sexual Activity Alcohol use: No Drug use: No Sexual activity: Yes Partners: Male control/protection: Surgical Comment: hysterectomy Other Topics Concern Not on file Social History Narrative Employed: [employer] Social Needs Financial Resource [...] Stability Do you currently live in a penitentiary or have no steady place to sleep [...] - for ages0-17 years): Not on file Review of Systems Constitutional: Positive for activity change and fatigue. Negative for appetite change, chills, diaphoresis, fever and unexpected weight change. HENT: Positive for congestion, postnasal drip, rhinorrhea, sinus pressure, sore throat and tinnitus. Negative for ear pain, sinus pain and sneezing. Respiratory: Positive for cough. Negative for chest tightness, shortness of breath and wheezing. Cardiovascular: Negative for chest pain, palpitations and leg swelling. Gastrointestinal: Negative for abdominal distention and abdominal pain. Musculoskeletal: Positive for back pain and gait problem. Allergic/Immunologic: Positive for environmental allergies. Neurological: Positive for headaches. Negative for dizziness and light-headedness. Psychiatric/Behavioral: Positive for sleep disturbance. Negative for agitation and behavioral problems. Objective BP 132/70 | Pulse 94 | Temp 97.3 F (36.3 C) (Infrared ) | Resp 18 | Wt 230 lb 14.4 oz (104.7 kg) | SpO2 97% | BMI 40.90 kg/m | BSA 2.16 m Physical Exam Constitutional: General: She is not in acute distress. Appearance: Normal appearance. She is obese. She is not ill-appearing, toxic- appearing or diaphoretic. HENT: Head: Normocephalic and atraumatic. Nose: Congestion and rhinorrhea present. Eyes: Extraocular Movements: Extraocular movements intact. Cardiovascular: Rate and Rhythm: Normal rate and regular rhythm. Pulses: Normal pulses. Heart sounds: Murmur heard. Pulmonary: Effort: Pulmonary effort is normal. No respiratory distress. Breath sounds: Normal breath sounds. No stridor. No wheezing, rhonchi or rales. Chest: Chest wall: No tenderness. Musculoskeletal: General: Tenderness and signs of injury present. Right lower leg: No edema. Left lower leg: No edema. Neurological: Mental Status: She is alert and oriented to person, place, and time. Psychiatric: Behavior: Behavior normal. ASSESSMENT/PLAN: Chronic sinusitis, unspecified location (Primary) Risk and functional assessment Personal history of fall Injury of coccyx, initial encounter - XR L SPINE 2-3 VIEWS - XR SACRUM COCCYX MINIMUM 2 VIEWS Allergic rhinitis, unspecified seasonality, unspecified trigger Type 2 diabetes mellitus with hemoglobin A1c goal of less than 7.0% ([facility]) Other orders - Fluticasone Propionate 50 MCG/ACT Nasal Suspension (Flonase); Administer 2 Sprays into each nostril in the morning. - Amoxicillin-Pot Clavulanate 875-125 MG Oral Tablet (Augmentin); Take 1 Tablet by mouth in the morning and 1 Tablet before bedtime. Do all this for 7 days. Check-out note: Xray today Take augmentin twice daily for 7 days Netti pot or saline twice daily Then use flonase daily Take claritin or zyrtec daily for 1-2 wks Mohini Marley MD documented in this encounter Nursing Notes * Janice Orr LPN - 06/22/2024 7:23 AM EST Chief Complaint Patient presents with Acute Pt here today due to having a possible sinus infection. Also pt's tailbone has been sore since she fell documented in this encounter Miscellaneous Notes * Addendum Note - Rosa Barker LPN - 06/22/2024 8:21 AM ESTAddended by: ROSA BARKER on: 06/22/2024 08:21 AM Modules accepted: Orders documented in this encounter Plan of Treatment Upcoming Encounters Date Type Department Care Team (Late st Contact Info) Description 06/24/2024 2:30 PM EST Appointment Radiology 1st Fl, [facility] [address] [place], [place] [address] 06/29/2024 10:00 AM EST Home Visit Luis A [place], [facility] [address] [facility] [place] [address] Heidi Garcia RN [address] [place] [address] 07/01/2024 10:00 AM EST Office Visit Podiatry [facility] [address] [facility] [place] [address] Calli Avila DPM [address] [facility] [place] [address] 07/13/2024 10:00 AM EST Imaging Radiology [facility] [address] [facility] [place] [address] [facility] [place] [address] 08/10/2024 8:00 AM EST Office Visit Gastroenterology, [facility] [address] [facility] [place] [address] Emi Queen CRNP [address] [facility] [place] [address] 08/10/2024 2:40 PM EST Office Visit Dermatology, [facility] [address] [facility] [place] [phone] Joanne Parks PA-C [address] [place] [address] [place] [address] 09/02/2024 10:00 AM EST Nurse Only Nutrition & Weight Management, [facility] [address] [facility] [place] [address] [facility], Nurse Gi Nutrition [facility] [address] [place] [address] Pending Results Name Type Priority Associated Diagnoses Date /Time XR L SPINE 2-3 VIEWS Medical Imaging Routine Injury of coccyx, initial encounter 06/22/2024 8:24 AM EST XR SACRUM COCCYX MINIMUM 2 VIEWS Medical Imaging Routine Injury of coccyx, initial encounter 06/22/2024 8:24 AM EST Scheduled Procedures Name Priority Associated Diagnoses Date/Ti [...] this encounter Medical Devices Implanted Type Area Mechanical Fitter Device Identifier Shelf Expiration Date Model / Serial / Lot Coil Vortex 35 Pltinm [id number] - [id number] Implanted:Qty: 1 on 11/27/2021 by Sterling Cates MD at [place] [facility] Right: Upper Arm [employer] : NEURO INTR [id number] 08/15/2024 [id number] / / [id number] Coil Vortex 35 Pltinm [id number] - [id number] Implanted:Qty: 1 on 11/27/2021 by Sterling Cates MD at [place] [facility] Right: Upper Arm [employer] : NEURO INTR [id number] 08/15/2024 [id number] / / [id number] Coil Vortex 35 Pltinm [id number] - [id number] Implanted:Qty: 1 on 11/27/2021 by Sterling Cates MD at [place] [facility] Right: Upper Arm [employer] : NEURO INTR [id number] 08/15/2024 [id number] / / [id number] Coil Vortex 35 Pltinm [id number] - [id number] Implanted:Qty: 1 on 11/27/2021 by Sterling Cates MD at [place] [facility] Right: Upper Arm [employer] : NEURO INTR [id number] 05/16/2024 [id number] / / [id number] Azur 35 Detachable 5mm 11cm - [id number] Implanted:Qty: 1 on 03/19/2022 by Jose Devine MD at [place] [facility] Right: Wrist [employer] [id number] 10/18/2025 [id number] / / [id number] Azur 35 Detachable 5mm 11cm - [id number] Implanted:Qty: 1 on 03/19/2022 by Jose Devine MD at [place] [facility] Right: Wrist [employer] [id number] 06/19/2026 [id number] / / [id number] Mesh Flat Sheet 10x14 [id number] - [id number] Implanted:Qty: 1 on 12/11/2022 by Eros Dash MD at [place] [facility] N/A: Abdomen CR BARD : DAVOL [id number] 06/17/2027 [id number] / / [id number] documented as of this encounter Visit Diagnoses Diagnosis Marginal ulcer- Primary Gastrojejunal ulcer, unspecified as acute or chronic, without mention of hemorrhage, perforation, or obstruction ESRD (end stage renal disease) on dialysis ([facility]) End stage renal disease Hypertensive 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 congestive heart failure and stage 5 chronic kidney disease on chronic dialysis ([facility]) Acute posthemorrhagic anemia Type 2 diabetes mellitus 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 dialysis, with long-term current use of insulin ([facility]) Hypothyroidism (acquired) Unspecified hypothyroidism Malignant melanoma of right upper extremity ([facility]) Aortic atherosclerosis ([facility]) Atherosclerosis of aorta Diabetic polyneuropathy associated with type 2 diabetes mellitus ([facility]) Advanced care planning/counseling discussion- Primary Other specified counseling Hypertensive 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 congestive heart failure and stage 5 chronic kidney disease on chronic dialysis (HCC) Presence of cardiac pacemaker Cardiac pacemaker in situ SSS (sick sinus syndrome) ([facility]) Sinoatrial node dysfunction MINISTERIO on CPAP Obstructive sleep apnea (adult) (pediatric) Hypothyroidism (acquired) Unspecified hypothyroidism Type 2 diabetes mellitus 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 dialysis, with long-term current use of insulin ([facility]) S/P gastric bypass Bariatric surgery status ESRD (end stage renal disease) on dialysis ([facility]) End stage renal disease Recurrent ventral incisional hernia Incisional hernia without mention of obstruction or gangrene NO SHOW/FAILED TO KEEP APPOINTMENT- Primary Chronic diastolic heart failure (HCC)- Primary Chronic diastolic heart failure HTN, goal below 140/90 Unspecified essential hypertension Type 2 diabetes mellitus with hemoglobin A1c goal of less than 7.0% ([facility]) Hypothyroidism (acquired) Unspecified hypothyroidism Dyslipidemia, goal LDL [...] sleep apnea (adult) (pediatric) Diarrhea, unspecified type Chronic sinusitis, unspecified location- Primary Risk and functional assessment Screening for unspecified condition Personal history of fall Injury of coccyx, initial encounter Allergic rhinitis, unspecified seasonality, unspecified trigger Type 2 diabetes mellitus with hemoglobin A1c goal of less than 7.0% (HCC) Need for pneumococcal vaccination Need for prophylactic vaccination against streptococcus pneumoniae (pneumococcus) Screening mammogram for breast cancer documented in this encounter Advance Directives Documents on File Type Date Recorded 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
--- OUTSIDE RECORDS SUMMARY | 2024-07-08 02:51 | External Medical Summary | Summary of Care ---
Author Name Unknown Organization [facility] Address [address] [place] [address] Phone [phone] Care Team Providers Care Forestry Workers Name Role Phone Luis Fernando Rojas MD Primary Care Provider Reason for Visit * Reason Comments Acute Pt here today due to having a possible sinus infection. Also pt's tailbonolegario has been sore since she fell Encounter Details Date Type Department Care Team (Late st Contact Info) Description 06/22/2024 7:40 AM EST Office Visit [facility] [address] [place] [address] Mohini Marley MD [address], [place] [id number] Chronic sinusitis, unspecified location*; Risk and functional assessment; Personal history of fall; Injury of coccyx, initial encounter; Allergic rhinitis, unspecified seasonality, unspecified trigger; Type 2 diabetes mellitus with hemoglobin A1c goal of less than 7.0% ([facility]); Need for pneumococcal vaccination Allergies Active Allergy [...] Replace every 14 days (supplied through [facility]) 7 Each 3 05/17/20 Active CPAP every [...] 4 6:47 AM EDT 04/20/20 24 Active Regen[employer]ody HoldingsTouch Delica Lancets 33G To test blood sugar 4 times daily. 400 Each 1 4 6:47 AM EDT 04/20/20 Active Regen[employer]ody HoldingsTouch Verio w/Device Kit Use as directed. 1 [...] 1,000 mcgIndications:S/P gastric bypass 1000 mcg IM [id number] 10/15/2022 07/19/2025 Active vitamin b-12 (Cyanocobalamin) inj 1,000 mcgIndications:Morbid obesity with BMI of 40.0-44.9, adult (HCC),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 [id number] 10/17/2023 12/11/19 25 Active documented as of [...] 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 10/15/2022 [employer] OTHER*[id number] 01/01/2022 S/P gastric bypass 01/01/2022 Dialysis AV [...] 8:45 AM EDT): Gabapentin [address] [facility] Assessment & Plan (05/07/2021 11:11 AM EDT): [...] T-tube placement 04/16/2017 05/29/2017 [employer] Other*[id number] 04/13/2013 08/27/2016 Overview (04/13/2013): Study Title: Genomic Markers for Patients with Cardiovascular Disease Project # [id number] [place]: Siena Laws MD [phone] Hypertensive heart disease 03/25/2013 1 07/29/2016 Neuropathy, [...] yrs 09/16/2018,04/14/2018,03/1104/11/2018 Pneumococcal Conjugate Vacci ne, 20-valent (Inpucon13) 12/02/2023(Deferred: - pt states she's already received) [...] 08/14/2023 Does the household have a re lar source of income? (Household - for ages [...] 10 times. Repeat this throughout the day. [employer] Patient Education Copyright 2009 - 2010 [employer] except where otherwise noted. Preventing Falls: Moving [...] polyneuropathy, with long-term current use of insulin ([facility]) Chronic diastolic heart failure ([facility]) History of endometrial cancer Hyperparathyroidism, secondary renal ([facility]) MINISTERIO on CPAP Stable proliferative diabetic retinopathy of both eyes associated with type 2 diabetes mellitus ([facility]) SALVADOR inhibitor intolerance SSS (sick sinus syndrome) ([facility]) PAT (paroxysmal atrial tachycardia) ([facility]) Gastroesophageal reflux disease without esophagitis Hypertensive 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 congestive heart failure and stage 5 chronic kidney disease on chronic dialysis ([facility]) Morbid obesity with BMI of 40.0-44.9, adult ([facility]) Postsurgical malabsorption, not elsewhere classified Diabetic gastroparesis ([facility]) Type 2 diabetes mellitus 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 dialysis, with long-term current use of insulin ([facility]) Presence of cardiac pacemaker End stage renal disease on dialysis ([facility]) Marginal ulcer Aortic atherosclerosis ([facility]) Dialysis AV fistula malfunction ([facility]) [employer] OTHER*[id number] S/P gastric bypass 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 ([facility]) Pulmonary hypertension, unspecified ([facility]) Recurrent ventral incisional hernia Major depressive disorder, single episode, moderate ([facility]) 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, with long-term current use of insulin ([facility]) Current Outpatient Medications Medication Sig Dispense Refill Melatonin 10 MG Tablet Take 12 mg by mouth at bedtime. Aspirin 81 MG Oral Tablet Chewable Take 1 Tab by mouth at bedtime. with food. 90 Tab 3 FreeStyle Jennifer 2 Sensor Use as directed. Replace every 14 days (supplied through [facility]) 7 Each 3 CPAP every night at [...] and over, adult CHF NYHA class I ([facility]) 07/2009 Chronic marginal ulcer Deficiency of other vitamins Vit D Depressive disorder, not elsewhere classified Dialysis patient ([facility]) Diverticulosis of colon (without mention of hemorrhage) 12/02/2013 sigmoid & descending colon DM type 2 causing eye disease ([facility]) DM type 2 causing neurological disease ([facility]) neuropathy since 2006 DM type 2 causing renal disease ([facility]) DM type 2, goal A1c below [address] Monte Dyslipidemia, goal LDL below 100 primarily high triglycerides Endometrial cancer ([facility]) 1993 ESRD (end stage renal disease) on dialysis ([facility]) 03/14/2021 HTN, goal below 130/80 Kidney disease, chronic, stage III (GFR 30-59 ml/min) ([facility]) 10/02/2011 More specified code listed on PL Historical Malignant melanoma of right upper extremity ([facility]) 05/07/2021 Malignant neoplasm of corpus uteri ([facility]) 1993 Melanoma ([facility]) L calf R arm Motion sickness Neuropathy, diabetic ([facility]) 02/18/2013 Osteoarthritis of hip mild to mod bilat hip pain Other specified anemias low iron Other specified glaucoma denied by patient PONV (postoperative nausea and vomiting) Renal failure hemodialysis SBO (small bowel obstruction) ([facility]) 04/25/2017 Sleep apnea 07/2009 CPAP 11 cm H2O. C-flex 2 Past Surgical History: Procedure Laterality Date ABD WALL HERNIA REPAIR, LAP, REDUCIBLE N/A 01/28/2022 LAPAROSCOPIC VENTRAL/UMBILICAL HERNIA REPAIR, REDUCIBLE W OR W/O MESH performed by Honorio Ashford MD at [facility] AV ACCESS, DIRECT ANASTOMOSIS Right 08/16/2021 ARTERIOVENOUS ANASTOMOSIS OPEN DIRECT ANY SITE performed by Sterling Cates MD at [facility] BREAST BIOPSY Left 12/26/2008 Usual Ductal Hyperplasia BREAST BIOPSY Left 09/20/2010 Benign BX LYMPH NODE DEEP AXIL Right 05/22/2021 BIOPSY LYMPH NODE DEEP AXILLARY OPEN performed by Diamond Rivero MD at OR [facility] COLONOSCOPY, DIAGNOSTIC (RECTUM) 12/02/2013 hyperplastic polyps, diverticulosis, repeat 5 yrs/done @ [facility] COLONOSCOPY, DIAGNOSTIC (RECTUM) 12/11/2017 adenomatous polyps, diverticulosis, repeat 5 yrs/[facility] COLONOSCOPY, DIAGNOSTIC (RECTUM) N/A 02/27/2023 diverticulosis/hemorrhoids/biopsies show adenomatous polyps/recall 5 years/Colonoscopy/[place] CORONARY ANGIOGRAPHY W/LEFT HEART CATH 04/13/2013 CORONARY ANGIOGRAPHY W/LEFT HEART CATH performed by Ulises Reed MD at [facility]ARD[facility]S [facility] DIALYIS CIRCUIT VASCULAR EMBOLIZATION OCCLUSION ENDOVASC IMAGING Right 11/27/2021 EMBOLIZATION DIALYSIS CIRCUIT performed by Sterling Ctaes MD at OR [facility] EGD, FLEXIBLE, DIAGNOSTIC 05/03/2014 mild-mod inflammation/done @ [facility] EGD, FLEXIBLE, DIAGNOSTIC N/A 04/16/2017 ESOPHAGOGASTRODUODENOSCOPY (EGD), FLEXIBLE, TRANSORAL, DIAGNOSTIC performed by Sukumar Polanco MDat OR [facility] EGD, FLEXIBLE, DIAGNOSTIC 05/05/2020 mild-mod inflammation on bx / ESOPHAGOGASTRODUODENOSCOPY (EGD), FLEXIBLE, TRANSORAL, DIAGNOSTIC performed by Adin Borja MD at ENDOSCOPY [facility] EGD, FLEXIBLE, DIAGNOSTIC N/A 04/25/2021 ESOPHAGOGASTRODUODENOSCOPY (EGD), FLEXIBLE, TRANSORAL, DIAGNOSTIC performed by Honorio Almendarez MD atENDOSCOPY [facility] EGD, FLEXIBLE, DIAGNOSTIC 06/13/2021 gastrojejunal anastomosis characterized by ulceration, repeat 2 mo / [facility] IDENTIFY SENTINEL NODE, RADIOACTIVE TRACER Right 05/22/2021 INJECTION PROCEDURE FOR IDENTIFICATION SENTINEL NODE performed by Diamond Rivero MD at OR [facility] INFORMATION Left 2019 Pacemaker placement. INTRO CATH DIALYSIS CIRCUIT DX ANGIOGRAPHY FLUORO S&I Right 10/10/2022 AV FISTULOGRAM DIAGNOSTIC performed by Jose Devine MD at OR [facility] INTRO CATH DIALYSIS CIRCUIT W/TRANSCATH PLACEMENT IV STENT Right 03/19/2022 AV FISTULOGRAM STENT & PERIPHERAL ANGIOPLASTY performed by Jose Devine MD at OR [facility] INTRO CATH DIALYSIS CIRCUIT W/TRANSCATH PLACEMENT IV STENT Right 05/13/2023 AV FISTULOGRAM STENT & PERIPHERAL ANGIOPLASTY performed by Williams Matt MD at OR [facility] INTRO CATH DIALYSIS CIRCUIT W/TRANSCATH PLACEMENT IV STENT Right 12/02/2023 AV FISTULOGRAM STENT & PERIPHERAL ANGIOPLASTY performed by Micheal Urena MD at OR [facility] INTRO CATH DIALYSIS CIRCUIT W/TRANSCATH PLACEMENT IV STENT Right 06/01/2024 AV FISTULOGRAM STENT & PERIPHERAL ANGIOPLASTY performed by Beto Torrez MD at OR [facility] INTRO CATH DIALYSIS CIRCUIT W/TRANSLUM BALLOON ANGIOPLASTY Right 11/27/2021 AV FISTULOGRAM & PERIPHERAL ANGIOPLASTY performed by Sterling Cates MD at OR [facility] INTRO CATH DIALYSIS CIRCUIT W/TRANSLUM BALLOON ANGIOPLASTY Right 05/30/2022 AV FISTULOGRAM & PERIPHERAL ANGIOPLASTY performed by Beto Torrez MD at OR [facility] INTRO CATH DIALYSIS CIRCUIT W/TRANSLUM BALLOON ANGIOPLASTY Right 02/25/2023 AV FISTULOGRAM & PERIPHERAL ANGIOPLASTY performed by Jose Devine MD at OR [facility] INTRO CATH DIALYSIS CIRCUIT W/TRANSLUM BALLOON ANGIOPLASTY Right 03/30/2024 AV FISTULOGRAM & PERIPHERAL ANGIOPLASTY performed by Micheal Urena MD at OR [facility] IR DUPLEX ULTRASOUND (FOR INTERVENTIONAL RADIOLOGY USE ONLY) 03/02/2021 IR FISTULAGRAM AV DIALYSIS SHUNT IR VENOUS ACCESS NON-MEDIPORT 07/18/2022 LAPAROSCOPE PROCEDURE, LIVER N/A 04/16/2017 UNLISTED LAPAROSCOPIC PROCEDURE LIVER performed by Sukumar Polanco MD at OR [facility] LAPAROSCOPE PROCEDURE, LIVER N/A 01/28/2022 UNLISTED LAPAROSCOPIC PROCEDURE LIVER performed by Honorio Ashford MD at OR [facility] LAPAROSCOPIC GASTRIC BYPASS/JODY-EN-Y N/A 04/16/2017 LAPAROSCOPIC GASTRIC RESTRICTIVE BYPASS JODY EN Y performed by Sukumar Polanco MD at [facility] LAPAROSCOPY; CHOLECYSTECTOMY N/A 04/16/2017 LAPAROSCOPIC CHOLECYSTECTOMY performed by Sukumar Polanco MD at [facility] MISCELLANEOUS ORDER ([facility] ONLY) 05/2009 breast biopsy/ Usual ductal hyperplasia MISCELLANEOUS ORDER ([facility] ONLY) 1990 arthroscopic knee (right) MISCELLANEOUS ORDER [...] performed by Sukumar Polanco MD at OR [facility] REPLACE,COMP,FLACO CENT ACC DEV N/A 03/22/2021 REPLACEMENT COMPLETE TUNNELED CENTRAL CATHETER NO PORT performed by Luis Fernando Hassan DO at OR [facility] REVISE STOMACH-BOWEL FUSION N/A 01/28/2022 REVISION GASTROJEJUNAL ANASTOMOSIS performed by Honorio Ashford MD at OR [facility] RMV MALG LSN TRK/ARM/LG >4.0CM Right 05/22/2021 EXCISION MALIGNANT TRUNK ARM LEG OVER 4CM performed by Diamond Rivero MD at OR [facility] RPR AA HERNIA 1ST 3-10 CM REDUCIBLE N/A 12/11/2022 INCISIONAL/VENTRAL/SPIGELIAN HERNIA REPAIR INITIAL 3-10 CM REDUCIBLE performed by Eros Dash MD at OR [facility] TOTAL ABD HYSTERECTOMY W/WO REMOVAL OF TUBE(S) Bilateral age 33 TOTAL HYSTERECTOMY TAHBSO (endometrial ca) TRANSECTION VAGUS NRV,TRUNCAL N/A 01/28/2022 LAPAROSCOPIC TRANSECTION VAGUS NERVES TRUNCAL performed by Honorio Ashford MD at OR [facility] UPPER GI ENDOSCOPY Review of patient's allergies [...] level: Not on file Occupational History Employer: [employer] Tobacco Use Smoking status: Never Passive exposure: Never Smokeless tobacco: Never Vaping Use Vaping status: Never Used Substance and Sexual Activity Alcohol use: No Drug use: No Sexual activity: Yes Partners: Male control/protection: Surgical Comment: hysterectomy Other Topics Concern Not on file Social History Narrative Employed: [employer] Social Needs Financial Resource [...] Stability Do you currently live in a longterm or have no steady place to sleep [...] than 7.0% ([facility]) Other orders - Fluticasone Propionate 50 MCG/ACT [...] 06/24/2024 2:30 PM EST Appointment Radiology [address], [facility] [address] [place], [place] [address] 06/29/2024 10:00 AM EST Home Visit Luis A at [place], [facility] [address] [facility] [place] [address] Heidi Garcia, RN [address] [facility] [place] [address] 07/01/2024 10:00 AM EST Office Visit Podiatry [facility] [address] [facility] [place] [address] Calli Avila DPM [address] [facility] [place] [address] 07/13/2024 10:00 AM EST Imaging Radiology [facility] [address] [facility] [place] [address] [facility] [place] [address] 08/10/2024 8:00 AM EST Office Visit Gastroenterology, [facility] [address] [facility] [place] [address] Emi Queen CRNP [address] [facility] [place] [address] 08/10/2024 2:40 PM EST Office Visit Dermatology, Sidney Krishna [address] [facility] [place] [phone] Joanne Parks PA-C [address] [place] [address] [place] [address] 09/02/2024 10:00 AM EST Nurse Only Nutrition & Weight Management, [facility] [address] [facility] [place] [address] [facility], Nurse Gi Nutrition [facility] [address] [facility] [place] [address] Pending Results Name Type Priority Associated Diagnoses Date /Time XR L SPINE 2-3 VIEWS Medical Imaging Routine Injury of coccyx, initial encounter 06/22/2024 7:57 AM EST XR SACRUM COCCYX MINIMUM 2 VIEWS Medical Imaging Routine Injury of coccyx, initial encounter 06/22/2024 7:57 AM EST Scheduled Procedures Name Priority Associated Diagnoses Date/Ti me COLONOSCOPY FLEXIBLE PROXIMA L DIAGNOSTIC Recall History of colonic polyps Health Maintenance Due Date Last Done Comments Cologuard 12/23/2003 Fecal Occult Blood Test 12/23/2003 Sigmoidoscopy 12/23/2003 Pneumococcal Vaccine: 65+ Years (3 of 3 - PCV) 08/30/2015 08/30/2014, 09/18/2013, 07/28/2007 TSH 01/23/2023 01/23/2022, 07/21, 05/18/2021, Additional history [...] Completed 06/02/2024, , 04/09/2021, Additional history exists HPV (Gardasil) Vaccine Aged Out No lo nger eligible based on patient's age to complete this topic MENINGOCOCCAL (MENACTRA/MENVEO) Aged Out No longer eligible based on patient's age to complete this topic documented as of this encounter Medical Devices Implanted Type Area Felt Finishing Supervisor Device Identifier Shelf Expiration Date Model / Serial / Lot Coil Vortex 35 Pltinm [id number] - [id number] Implanted:Qty: 1 on 11/27/2021 by Sterling Cates MD at OR [facility] Right: Upper Arm [employer] : NEURO INTR [id number] 08/15/2024 [id number] / [id number] Coil Vortex 35 Pltinm [id number] - [id number] Implanted:Qty: 1 on 11/27/2021 by Sterling Cates MD at OR [facility] Right: Upper Arm [employer] : NEURO INTR [id number] 08/15/2024 [id number] / / [id number] Coil Vortex 35 Pltinm [id number] - [id number] Implanted:Qty: 1 on 11/27/2021 by Sterling Cates MD at OR [facility] Right: Upper Arm [employer] : NEURO INTR [id number] 08/15/2024 [id number] / / [id number] Coil Vortex 35 Pltinm [id number] - [id number] Implanted:Qty: 1 on 11/27/2021 by Sterling Cates MD at OR [facility] Right: Upper Arm [employer] : NEURO INTR [id number] 05/16/2024 [id number] / [id number] Azur 35 Detachable 5mm 11cm - [id number] Implanted:Qty: 1 on 03/19/2022 by Jose Devine MD at OR [facility] Right: Wrist [employer] [id number] 10/18/2025 [id number] / / [id number] Azur 35 Detachable 5mm 11cm - [id number] Implanted:Qty: 1 on 03/19/2022 by Jose Devine MD at OR [facility] Right: Wrist [employer] [id number] 06/19/2026 [id number] / / [id number] Mesh Flat Sheet 10x14 [id number] - [id number] Implanted:Qty: 1 on 12/11/2022 by Eros Dash MD at OR [facility] N/A: Abdomen CR BARD : DAVOL [id number] 06/17/2027 [id number] / / [id number] documented as of this encounter Visit Diagnoses Diagnosis Marginal ulcer- Primary Gastrojejunal ulcer, unspecified as acute or chronic, without mention of hemorrhage, perforation, or obstruction ESRD (end stage renal disease) on dialysis ([facility]) End stage renal disease Hypertensive 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 congestive heart failure and stage 5 chronic kidney disease on chronic dialysis ([facility]) Acute posthemorrhagic anemia Type 2 diabetes mellitus 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 dialysis, with long-term current use of insulin ([facility]) Hypothyroidism (acquired) Unspecified hypothyroidism Malignant melanoma of right upper extremity ([facility]) Aortic atherosclerosis ([facility]) Atherosclerosis of aorta Diabetic polyneuropathy associated with type 2 diabetes mellitus ([facility]) Advanced care planning/counseling discussion- Primary Other specified counseling Hypertensive 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 congestive heart failure and stage 5 chronic kidney disease on chronic dialysis ([facility]) Presence of cardiac pacemaker Cardiac pacemaker in situ SSS (sick sinus syndrome) ([facility]) Sinoatrial node dysfunction MINISTERIO on CPAP Obstructive sleep apnea (adult) (pediatric) Hypothyroidism (acquired) Unspecified hypothyroidism Type 2 diabetes mellitus 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 dialysis, with long-term current use of insulin ([facility]) S/P gastric bypass Bariatric surgery status ESRD (end stage renal disease) on dialysis ([facility]) End stage renal disease Recurrent ventral incisional hernia Incisional hernia without mention of obstruction or gangrene NO SHOW/FAILED TO KEEP APPOINTMENT- Primary Chronic diastolic heart failure (HCC)- Primary Chronic diastolic heart failure HTN, goal below 140/90 Unspecified essential hypertension Type 2 diabetes mellitus with hemoglobin A1c goal of less than 7.0% ([facility]) Hypothyroidism (acquired) Unspecified hypothyroidism Dyslipidemia, goal LDL [...] Documents on File Type Date Recorded Patient Second Butler Expl anation POLST 11/13/2020 POLST FLAKITOA VALERIA ORDERS FOR LIFE-SUSTAINING TREATMENT * Full [...] Agents on File Name Relationship Healthcare Agent [facility] Dane Chaseley Spouse Health Care Agent Care Teams Forestry Workers Relationship Specialty Start Date End Date Luis Fernando Rojas MD [address] [place] [id number] PCP - General Family Medicine 09/23/16 documented as of this encounter
--- OUTSIDE RECORDS SUMMARY | 2024-07-08 02:51 | External Medical Summary | Summary of Care ---
Author Name Unknown Organization [facility] Address [address] [place] [address] Phone [phone] Care Team Providers Care Locker Room Manager Name Role Phone Luis Fernando Rojas MD Primary Care Provider [phone] Reason for Visit * Reason Comments Diabetic Foot Care Encounter Details Date Type Department Care Team (Late st Contact Info) Description 07/01/2024 10:00 AM EST Office Visit Podiatry [facility] [address] [place] [address] Calli Avila DPM [address] [place] [address] Onychomycosis*; Type 2 diabetes mellitus 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 dialysis, with long-term current use of insulin ([facility]); Hammer toe of right foot; Callus; ESRD (end stage renal disease) on dialysis ([facility]) Allergies Active Allergy Reactions Criticality Noted Date [...] directed. Replace every 14 days (supplied through [facility]) 7 Each 3 05/17/20 21 Active CPAP [...] hemoglobin A1c goal of less than 7.0% ([facility]) Use 4 times daily with insulin 400 [...] 1 4 6:47 AM EDT 04/20/20 Active [employer] w/Device Kit Use as directed. 1 Kit [...] 1,000 mcgIndications:S/P gastric bypass 1000 mcg IM [id number] 10/15/2022 07/19/2025 Active vitamin b-12 (Cyanocobalamin) inj 1,000 mcgIndications:Morbid obesity with BMI of 40.0-44.9, adult (HCC),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 [id number] 10/17/2023 12/11/19 25 Active documented as of [...] 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 10/15/2022 [employer] OTHER*[id number] 01/01/2022 S/P gastric bypass 01/01/2022 Dialysis AV [...] T-tube placement 04/16/2017 05/29/2017 [employer] Other*[id number] 04/13/2013 08/27/2016 Overview (04/13/2013): Study Title: Genomic Markers for Patients with Cardiovascular Disease Project # [id number] Manager Er: Siena Laws MD [phone] Hypertensive heart disease 03/25/2013 1 07/29/2016 Neuropathy, [...] yrs 09/16/2018,04/14/2018,03/1104/11/2018 Pneumococcal Conjugate Vacci ne, 20-valent ([id number]) 06/22/2024,12/02/2023(Deferred: - pt states she's already received) [...] No 08/14/2023 Does the household have a [facility] source of income? (Household - for ages [...] 9:49 AM EST Podiatry Established Patient Note [facility] Name: Candi Finley : 1960 [...] and over, adult CHF NYHA class I ([facility]) 07/2009 Chronic marginal ulcer Deficiency of other vitamins Vit D Depressive disorder, not elsewhere classified Dialysis patient ([facility]) Diverticulosis of colon (without mention of hemorrhage) 12/02/2013 sigmoid & descending colon DM type 2 causing eye disease ([facility]) DM type 2 causing neurological disease ([facility]) neuropathy since 2006 DM type 2 causing renal disease ([facility]) DM type 2, goal A1c below [address] Monte Dyslipidemia, goal LDL below 100 primarily high triglycerides Endometrial cancer ([facility]) 1993 ESRD (end stage renal disease) on dialysis ([facility]) 03/14/2021 HTN, goal below 130/80 Kidney disease, chronic, stage III (GFR 30-59 ml/min) ([facility]) 10/02/2011 More specified code listed on PL [...] performed by Honorio Ashford MD at OR [facility] AV ACCESS, DIRECT ANASTOMOSIS Right 08/16/2021 ARTERIOVENOUS ANASTOMOSIS OPEN DIRECT ANY SITE performed by Sterling Cates MD at [facility] BREAST BIOPSY Left 12/26/2008 Usual Ductal Hyperplasia BREAST BIOPSY Left 09/20/2010 Benign BX LYMPH NODE DEEP AXIL Right 05/22/2021 BIOPSY LYMPH NODE DEEP AXILLARY OPEN performed by Diamond Rivero MD at OR [facility] COLONOSCOPY, DIAGNOSTIC (RECTUM) 12/02/2013 hyperplastic polyps, diverticulosis, repeat 5 yrs/done @ [facility] COLONOSCOPY, DIAGNOSTIC (RECTUM) 12/11/2017 adenomatous polyps, diverticulosis, repeat 5 yrs/[facility] COLONOSCOPY, DIAGNOSTIC (RECTUM) N/A 02/27/2023 diverticulosis/hemorrhoids/biopsies show adenomatous polyps/recall 5 years/Colonoscopy/[place] CORONARY ANGIOGRAPHY W/LEFT HEART CATH 04/13/2013 CORONARY ANGIOGRAPHY W/LEFT HEART CATH performed by Ulises Reed MD at CARDIAC LABS [facility] DIALYIS CIRCUIT VASCULAR EMBOLIZATION OCCLUSION ENDOVASC IMAGING Right 11/27/2021 EMBOLIZATION DIALYSIS CIRCUIT performed by Sterling Cates MD at OR [facility] EGD, FLEXIBLE, DIAGNOSTIC 05/03/2014 mild-mod inflammation/done @ [facility] EGD, FLEXIBLE, DIAGNOSTIC N/A 04/16/2017 ESOPHAGOGASTRODUODENOSCOPY (EGD), FLEXIBLE, TRANSORAL, DIAGNOSTIC performed by Félix Gilliam OR [facility] EGD, FLEXIBLE, DIAGNOSTIC 05/05/2020 mild-mod inflammation on bx / ESOPHAGOGASTRODUODENOSCOPY (EGD), FLEXIBLE, TRANSORAL, DIAGNOSTIC performed by Adin Borja MD at ENDOSCOPY [facility] EGD, FLEXIBLE, DIAGNOSTIC N/A 04/25/2021 ESOPHAGOGASTRODUODENOSCOPY (EGD), FLEXIBLE, TRANSORAL, DIAGNOSTIC performed by Honorio Almendarez MD atENDOSCOPY [facility] EGD, FLEXIBLE, DIAGNOSTIC 06/13/2021 gastrojejunal anastomosis characterized by ulceration, repeat 2 mo / [facility] IDENTIFY SENTINEL NODE, RADIOACTIVE TRACER Right 05/22/2021 INJECTION PROCEDURE FOR IDENTIFICATION SENTINEL NODE performed by Diamond Rivero MD at OR [facility] INFORMATION Left 2019 Pacemaker placement. INTRO CATH DIALYSIS CIRCUIT DX ANGIOGRAPHY FLUORO S&I Right 10/10/2022 AV FISTULOGRAM DIAGNOSTIC performed by Jose Devine MD at OR [facility] INTRO CATH DIALYSIS CIRCUIT W/TRANSCATH PLACEMENT IV STENT Right 03/19/2022 AV FISTULOGRAM STENT & PERIPHERAL ANGIOPLASTY performed by Jose Devine MD at OR [facility] INTRO CATH DIALYSIS CIRCUIT W/TRANSCATH PLACEMENT IV STENT Right 05/13/2023 AV FISTULOGRAM STENT & PERIPHERAL ANGIOPLASTY performed by Williams Matt MD at OR [facility] INTRO CATH DIALYSIS CIRCUIT W/TRANSCATH PLACEMENT IV STENT Right 12/02/2023 AV FISTULOGRAM STENT & PERIPHERAL ANGIOPLASTY performed by Micheal Urena MD at OR [facility] INTRO CATH DIALYSIS CIRCUIT W/TRANSCATH PLACEMENT IV STENT Right 06/01/2024 AV FISTULOGRAM STENT & PERIPHERAL ANGIOPLASTY performed by Beto Torrez MD at OR [facility] INTRO CATH DIALYSIS CIRCUIT W/TRANSLUM BALLOON ANGIOPLASTY Right 11/27/2021 AV FISTULOGRAM & PERIPHERAL ANGIOPLASTY performed by Sterling Cates MD at OR [facility] INTRO CATH DIALYSIS CIRCUIT W/TRANSLUM BALLOON ANGIOPLASTY Right 05/30/2022 AV FISTULOGRAM & PERIPHERAL ANGIOPLASTY performed by Beto Torrez MD at OR [facility] INTRO CATH DIALYSIS CIRCUIT W/TRANSLUM BALLOON ANGIOPLASTY Right 02/25/2023 AV FISTULOGRAM & PERIPHERAL ANGIOPLASTY performed by Jose Devine MD at OR [facility] INTRO CATH DIALYSIS CIRCUIT W/TRANSLUM BALLOON ANGIOPLASTY Right 03/30/2024 AV FISTULOGRAM & PERIPHERAL ANGIOPLASTY performed by Micheal Urena MD at OR [facility] IR DUPLEX ULTRASOUND (FOR INTERVENTIONAL RADIOLOGY USE ONLY) 03/02/2021 IR FISTULAGRAM AV DIALYSIS SHUNT IR VENOUS ACCESS NON-MEDIPORT 07/18/2022 LAPAROSCOPE PROCEDURE, LIVER N/A 04/16/2017 UNLISTED LAPAROSCOPIC PROCEDURE LIVER performed by Sukumar Polanco MD at OR [facility] LAPAROSCOPE PROCEDURE, LIVER N/A 01/28/2022 UNLISTED LAPAROSCOPIC PROCEDURE LIVER performed by Honorio Ashford MD at OR [facility] LAPAROSCOPIC GASTRIC BYPASS/JODY-EN-Y N/A 04/16/2017 LAPAROSCOPIC GASTRIC RESTRICTIVE BYPASS JODY EN Y performed by Sukumar Polanco MD at OR [facility] LAPAROSCOPY; CHOLECYSTECTOMY N/A 04/16/2017 LAPAROSCOPIC CHOLECYSTECTOMY performed by Sukumar Polanco MD at OR [facility] MISCELLANEOUS ORDER ([facility] ONLY) 05/2009 breast biopsy/ [...] performed by Sukumar Polanco MD at OR [facility] REPLACE,COMP,FLACO CENT ACC DEV N/A 03/22/2021 REPLACEMENT COMPLETE TUNNELED CENTRAL CATHETER NO PORT performed by Luis Fernando Hassan DO at OR [facility] REVISE STOMACH-BOWEL FUSION N/A 01/28/2022 REVISION GASTROJEJUNAL ANASTOMOSIS performed by Honorio Ashford MD at OR [facility] RMV MALG LSN TRK/ARM/LG >4.0CM Right 05/22/2021 EXCISION MALIGNANT TRUNK ARM LEG OVER 4CM performed by Diamond Rivero MD at OR [facility] RPR AA HERNIA 1ST 3-10 CM REDUCIBLE N/A 12/11/2022 INCISIONAL/VENTRAL/SPIGELIAN HERNIA REPAIR INITIAL 3-10 CM REDUCIBLE performed by Eros Dash MD at OR [facility] TOTAL ABD HYSTERECTOMY W/WO REMOVAL OF TUBE(S) Bilateral age 33 TOTAL HYSTERECTOMY TAHBSO (endometrial ca) TRANSECTION VAGUS NRV,TRUNCAL N/A 01/28/2022 LAPAROSCOPIC TRANSECTION VAGUS NERVES TRUNCAL performed by Honorio Ashford MD at OR [facility] UPPER GI ENDOSCOPY Family History Problem Relation [...] level: Not on file Occupational History Employer: [employer] Financial resource strain: Not on file Food [...] Not on file Social History Narrative Employed: [employer] Current Outpatient Medications Medication Sig Dispense Refill Melatonin 10 MG Tablet Take 12 mg by mouth at bedtime. Aspirin 81 MG Oral Tablet Chewable Take 1 Tab by mouth at bedtime. with food. 90 Tab 3 FreeStyle Jennifer 2 Sensor Use as directed. Replace every 14 days (supplied through [facility]) 7 Each 3 CPAP every [...] Description 07/05/2024 10:00 AM EST Scheduled Telephone [facility] [place], [address] [address] Heidi Garcia RN [address] [facility] [place] [address] 07/13/2024 10:00 AM EST Imaging Radiology [facility] [address] [facility] [place] [address] 08/10/2024 8:00 AM EST Office Visit Gastroenterology, [facility] [address] [facility] [place] [address] Emi Queen CRNP [address] [facility] [place] [address] 08/10/2024 2:40 PM EST Office Visit [facility]atology, [facility] [phone] Joanne Parks PA-C [address] [place] [address] [place] [address] 09/02/2024 10:00 AM EST Nurse Only Nutrition & Weight Management, [facility] [address] [facility] [place] [address] [facility], Nurse Gi Nutrition [facility] 132 [facility] [place] [address] 09/30/2024 11:00 AM EDT Office Visit Podiatry [facility] [address] [facility] [place] [address] Calli Avila DPM 132 [facility] [place] [address] Scheduled Procedures Name Priority Associated Diagnoses Date/Ti [...] this encounter Medical Devices Implanted Type Area Plastic Fabricator Device Identifier Shelf Expiration Date Model / Serial / Lot Coil Vortex 35 Pltinm [id number] - [id number] Implanted:Qty: 1 on 11/27/2021 by Sterling Cates MD at OR [facility] Right: Upper Arm [employer] : NEURO INTR [id number] 08/15/2024 [id number] 1 / / [id number] Coil Vortex 35 Pltinm [id number] - [id number] Implanted:Qty: 1 on 11/27/2021 by Sterling Cates MD at OR [facility] Right: Upper Arm [employer] : NEURO INTR [id number] 08/15/2024 [id number] 1 / / [id number] Coil Vortex 35 Pltinm [id number] - [id number] Implanted:Qty: 1 on 11/27/2021 by Sterling Cates MD at OR [facility] Right: Upper Arm [employer] : NEURO INTR [id number] 08/15/2024 [id number] 1 / / [id number] Coil Vortex 35 Pltinm [id number] - [id number] Implanted:Qty: 1 on 11/27/2021 by Sterling Cates MD at OR [facility] Right: Upper Arm [employer] : NEURO INTR [id number] 05/16/2024 [id number] 1 / / [id number] Azur 35 Detachable 5mm 11cm - [id number] Implanted:Qty: 1 on 03/19/2022 by Jose Devine MD at OR [facility] Right: Wrist [employer] [id number] 10/18/2025 [id number] / / [id number] Azur 35 Detachable 5mm 11cm - [id number] Implanted:Qty: 1 on 03/19/2022 by Jose Devine MD at OR [facility] Right: Wrist [employer] [id number] 06/19/2026 [id number] / / [id number] Mesh Flat Sheet 10x14 [id number] - [id number] Implanted:Qty: 1 on 12/11/2022 by Eros Dash MD at OR [facility] N/A: Abdomen CR BARD : DAVOL [id number] 06/17/2027 [id number] / / [id number] documented as of this encounter Visit Diagnoses Diagnosis Marginal ulcer- Primary Gastrojejunal ulcer, unspecified as acute or chronic, without mention of hemorrhage, perforation, or obstruction ESRD (end stage renal disease) on dialysis ([facility]) End stage renal disease Hypertensive 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 congestive heart failure and stage 5 chronic kidney disease on chronic dialysis ([facility]) Acute posthemorrhagic anemia Type 2 diabetes mellitus 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 dialysis, with long-term current use of insulin ([facility]) Hypothyroidism (acquired) Unspecified hypothyroidism Malignant melanoma of right upper extremity ([facility]) Aortic atherosclerosis ([facility]) Atherosclerosis of aorta Diabetic polyneuropathy associated with type 2 diabetes mellitus ([facility]) Advanced care planning/counseling discussion- Primary Other specified counseling Hypertensive 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 congestive heart failure and stage 5 chronic kidney disease on chronic dialysis ([facility]) Presence of cardiac pacemaker Cardiac pacemaker in situ SSS (sick sinus syndrome) ([facility]) Sinoatrial node dysfunction MINISTERIO on CPAP Obstructive sleep apnea (adult) (pediatric) Hypothyroidism (acquired) Unspecified hypothyroidism Type 2 diabetes mellitus 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 dialysis, with long-term current use of insulin ([facility]) S/P gastric bypass Bariatric surgery status ESRD (end stage renal disease) on dialysis ([facility]) End stage renal disease Recurrent ventral incisional hernia Incisional hernia without mention of obstruction or gangrene NO SHOW/FAILED TO KEEP APPOINTMENT- Primary Chronic diastolic heart failure ([facility])- Primary Chronic diastolic heart failure HTN, goal below 140/90 Unspecified essential hypertension Type 2 diabetes mellitus with hemoglobin A1c goal of less than 7.0% ([facility]) Hypothyroidism (acquired) Unspecified hypothyroidism Dyslipidemia, goal LDL below 100 Other and unspecified hyperlipidemia Major depressive disorder, single episode, moderate ([facility]) Major depressive disorder, single episode, moderate 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, with long-term current use of insulin ([facility]) Hyperparathyroidism, secondary renal (HCC) Secondary hyperparathyroidism (of renal origin) End stage renal disease on dialysis (HCC) End stage renal disease MINISTERIO on CPAP Obstructive sleep apnea (adult) (pediatric) Diarrhea, unspecified type Onychomycosis- Primary Dermatophytosis of nail Type 2 diabetes mellitus 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 dialysis, with long-term current use of insulin ([facility]) Hammer toe of right foot Callus Corns and callosities ESRD (end stage renal disease) on dialysis (HCC) End stage renal disease Screening mammogram for breast cancer documented in this encounter Advance Directives Documents on File Type Date Recorded Patient Leadership Development Consultant Saranya FIGUEROA 11/13/2020 POLST NASREEN SHAW ORDERS [...] File Name [facility] Zhen Finley Spouse Health Care Agent Care Teams Locker Room Manager Relationship Specialty Start Date End Date Luis Fernando Rojas MD [address] [place] [address] PCP - General Family Medicine 09/23/16 documented as of this encounter
--- OUTSIDE RECORDS SUMMARY | 2024-07-08 02:51 | External Medical Summary | Summary of Care ---
Author Name Unknown Organization [facility] Address [address] [place] [address] Phone [phone] Care Team Providers Care Deck Engineer Name Role Phone Luis Fernando Rojas MD Primary Care Provider [phone] Reason for Visit * Reason Onset Date Comments Medication Question 06/22/2024 Encounter Details Date Type Department Care Team (Late st Contact Info) Description 06/22/2024 Telephone [facility] [address] [place] [address] Luis Fernando Rojas MD [address] [place] [address] Medication Question Allergies Active Allergy Reactions Criticality Noted Date [...] Glargine Solostar 100 UNIT/ML Subcutaneous Solution Pen-injector (Windyagljimbo Zhou)Indicati ons:Type 2 diabetes mellitus with hemoglobin A1c goal of less than 7.0% (HCC) Inject 16 units subcutaneously every day. 30 mL 4 04/09/20 24 Active Insulin Lispro (1 Unit Dial) 100 UNIT/ML Subcutaneous Solution Pen-injector (HumaLOG KwikPen)Indicati ons:Type 2 diabetes mellitus with hemoglobin A1c goal of less than 7.0% ([facility]) Inject 14 units with breakfast, [...] mouth in the morning. 03/23/20 24 Active Sleep HealthCentersTouch Verio In Vitro Strip (Glucose Blood) To test blood sugar 4 times daily. 400 Strip 1 4 6:47 AM EDT 04/20/20 24 Active OneTouch Delica Lancets 33G To test blood sugar 4 times daily. 400 Each 1 4 6:47 AM EDT 04/20/20 24 Active Sleep HealthCentersTouch Verio w/Device Kit Use as directed. 1 [...] morning. 16 g 1 06/22/20 24 Active Amoxicillin-Pot Clavulanate 875-125 MG Oral Tablet (Augmentin) Take 1 Tablet by mouth in the morning and 1 Tablet before bedtime. Do all this for 7 days. 17 Tablet 06/22/20 24 024 Active Hospital, Clinic, or Other Facility Administered Medication Ordered Dose Route Frequency Start Date End Date Status vitamin b-12 (Cyanocobalamin) inj 1,000 mcgIndications:S/P gastric bypass 1000 mcg IM [id number] 10/15/2022 07/19/2025 Active vitamin b-12 (Cyanocobalamin) inj 1,000 mcgIndications:Morbid obesity with BMI of 40.0-44.9, adult (HCC),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 [id number] 10/17/2023 12/11/19 25 Active documented as of [...] 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 10/15/2022 [facility] OTHER*[id number] 01/01/2022 S/P gastric bypass 01/01/[address] [...] Plan (03/23/2024 1:46 PM EDT): Continues on of atorvastatin, updated medication rec as it [...] Insulin long-term use 11/19/20182018 Overview (05/20/2019): Duplicate director long term care (current) use [...] T-tube placement 04/16/2017 05/29/2017 [employer] Other*[id number] 04/13/2013 08/27/2016 Overview (04/13/2013): Study Title: Genomic Markers for Patients with Cardiovascular Disease Project # [id number] Expeditionary Fighting Vehicle Crewman: Siena Laws MD [phone] Hypertensive heart disease 03/25/2013 1 07/29/2016 Neuropathy, [...] yrs 09/16/2018,04/14/2018,03/1104/11/2018 Pneumococcal Conjugate Vacci ne, 20-valent (Einoljt25) 06/22/2024,12/02/2023(Deferred: - pt states she's already received) Pneumococcal Polysaccharide PPV23 (Pneumovax) 08/30/2014,09/18/2013,07/28/2007 RSV Vac., Bivalent, Perfusio n F, Pf,0.5 Ml (Abrysvo) 08/05/2023 Seasonal Influenza Vac., MDV , IM, 0.5 mL (Fluzone) 05/21/2015,05/05/2014,04/01/2013,10/10/2011,05/21/2011,04/05/2010 Seasonal Influenza Virus Vac cine, Unspecified Formulation [...] 12/11/2022 6:51 PM EDT Rabia Wiley RN * Because of a physical, mental, [...] encounter Miscellaneous Notes * Telephone Encounter - Joanne Alicea [facility] - 06/22/2024 12:20 PM EST Pharmacy calling because prescription was sent in for quantity of 17 for augmentin. Notes from OV with Dr. Marley today state "take augmentin twice daily for 7 days" . Advised pharmacist to update quantity to dispense to 14. Thank you, Joanne Alicea, PharmD Clinical Pharmacist [facility] 06/22/24 12:21 PM [phone] * Telephone Encounter - Sakina Yao PHARM Tech - 06/22/2024 12:19 PM EST [facility] calling with questions regarding directions/ qty dispensed of pt's Augmentin. Warm transferred to [facility]. Thank you, Sakina Yao, Photographic Aide Photographic Aide I [facility] 06/22/2024,12:20 PM documented in this encounter Plan of Treatment Upcoming Encounters Date Type Department Care Team (Late st Contact Info) Description 06/24/2024 2:30 PM EST Appointment Radiology [facility], [place] [address] 06/29/2024 10:00 AM EST Home Visit [facility], [facility] [address] [facility] [place] [address] Heidi Garcia, RN [address] [place] [address] 07/01/2024 10:00 AM EST Office Visit Podiatry [facility] [address] [facility] [place] [address] Calli Avila DPM [address] [facility] [place] [address] 07/13/2024 10:00 AM EST [facility] [address] [facility] [place] [address] 08/10/2024 8:00 AM EST Office Visit Gastroenterology, [facility] [address] [facility] [place] [address] Emi Queen CRNP [address] [facility] [place] [address] 08/10/2024 2:40 PM EST Office Visit Dermatology, [facility] [place] [facility] [phone] Joanne Parks, PALinn [address] [place] [address] [place] [address] 09/02/2024 10:00 AM EST Nurse Only Nutrition & Weight Management, [facility] [address] [facility] [place] [address] [place], Nurse Gi Nutrition [facility] [address] [facility] [place] [address] Scheduled Procedures Name Priority Associated Diagnoses Date/Ti [...] this encounter Medical Devices Implanted Type Area Lobby Attendant Device Identifier Shelf Expiration Date Model / Serial / Lot Coil Vortex 35 Pltinm [id number] - [id number] Implanted:Qty: 1 on 11/27/2021 by Sterling Cates MD at [place] [facility] [place] Right: Upper Arm [employer] : NEURO INTR [id number] 08/15/2024 [id number] / / [id number] Coil Vortex 35 Pltinm [id number] - [id number] Implanted:Qty: 1 on 11/27/2021 by Sterling Cates MD at OR [facility] [place] Right: Upper Arm [employer] : NEURO INTR [id number] 08/15/2024 [id number] / / [id number] Coil Vortex 35 Pltinm [id number] - [id number] Implanted:Qty: 1 on 11/27/2021 by Sterling Cates MD at OR [facility] [place] Right: Upper Arm [employer] : NE[employer]O INTR [id number] 08/15/2024 [id number] / / [id number] Coil Vortex 35 Pltinm [id number] - [id number] Implanted:Qty: 1 on 11/27/2021 by Sterling Cates MD at OR [facility] [place] Right: Upper Arm [employer] : NEURO INTR [id number] 05/16/2024 [id number] / / [id number] Azur 35 Detachable 5mm 11cm - [id number] Implanted:Qty: 1 on 03/19/2022 by Jose Devine MD at OR [facility] [place] Right: Wrist [employer] [id number] 10/18/2025 [id number] / / [id number] Azur 35 Detachable 5mm 11cm - [id number] Implanted:Qty: 1 on 03/19/2022 by Jose Devine MD at OR [facility] [place] Right: Wrist [employer] [id number] 06/19/2026 [id number] / / [id number] Mesh Flat Sheet 10x14 [id number] - [id number] Implanted:Qty: 1 on 12/11/2022 by Eros Dash MD at OR [facility] [place] N/A: Abdomen CR BARD : DAVOL [id number] 06/17/2027 [id number] / / [id number] documented as of this encounter Advance Directives Documents on File Type Date Recorded Patient Airconditioning Drafting Officer Saranya FIGUEROA 11/13/2020 HENRY DOWNEY VALERIA ORDERS FOR LIFE-SUSTAINING TREATMENT * [...] Finley Spouse Health Care Agent Care Teams Deck Engineer Relationship Specialty Start Date End Date Luis Fernando Rojas MD [address] [place] [facility] [place] [address] PCP - General Family Medicine 09/23/16 documented as of this encounter
--- OUTSIDE RECORDS SUMMARY | 2024-07-08 02:51 | External Medical Summary | Summary of Care ---
Author Name Unknown Organization [facility] Address [address] [place] [address] Phone [phone] Care Team Providers Care High Speed Printer Operator Name Role Phone Luis Fernando Rojas MD Primary Care Provider [phone] Reason for Visit * Reason Comments Diabetic Foot Care Encounter Details Date Type Department Care Team (Late st Contact Info) Description 07/01/2024 10:00 AM EST Office Visit Podiatry [facility] [address] [place] [address] Calli Avila DPM [address] [place] [address] Onychomycosis*; Type 2 diabetes mellitus 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 dialysis, with long-term current use of insulin ([facility]); Hammer toe of right foot; Callus; ESRD (end stage renal disease) on dialysis ([facility]) Allergies Active Allergy Reactions Criticality Noted Date [...] Replace every 14 days (supplied through [facility]) 7 Each 3 05/17/20 21 Active CPAP [...] hemoglobin A1c goal of less than 7.0% ([facility]) Use 4 times daily with insulin 400 [...] 1 4 6:47 AM EDT 04/20/20 Active JagTag w/Device Kit Use as directed. 1 Kit [...] 1,000 mcgIndications:S/P gastric bypass 1000 mcg IM [id number] 10/15/2022 07/19/2025 Active vitamin b-12 (Cyanocobalamin) inj 1,000 mcgIndications:Morbid obesity with BMI of 40.0-44.9, adult (HCC),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 [id number] 10/17/2023 12/11/19 25 Active documented as of [...] 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 10/15/2022 [employer] OTHER*[id number] 01/01/2022 S/P gastric bypass 01/01/2022 Dialysis AV [...] Insulin long-term use 11/19/20182018 Overview (05/20/2019): Duplicate nursing home (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 insulin 11/19/2018 10/08/2022 [...] T-tube placement 04/16/2017 05/29/2017 [employer] Other*[id number] 04/13/2013 08/27/2016 Overview (04/13/2013): Study Title: Genomic Markers for Patients with Cardiovascular Disease Project # [id number] Manager Social Media: Siena Laws MD [phone] Hypertensive heart disease 03/25/2013 1 07/29/2016 Neuropathy, [...] yrs 09/16/2018,04/14/2018,03/1104/11/2018 Pneumococcal Conjugate Vacci ne, 20-valent ([id number]) 06/22/2024,12/02/2023(Deferred: - pt states she's already received) [...] No 08/14/2023 Does the household have a [facility] source of income? (Household - for [...] 9:49 AM EST Podiatry Established Patient Note [facility] [place] Name: Candi Finley : 1960 Date: 07/01/2024 [...] and over, adult CHF NYHA class I ([facility]) 07/2009 Chronic marginal ulcer Deficiency of other vitamins Vit D Depressive disorder, not elsewhere classified Dialysis patient ([facility]) Diverticulosis of colon (without mention of hemorrhage) 12/02/2013 sigmoid & descending colon DM type 2 causing eye disease ([facility]) DM type 2 causing neurological disease ([facility]) neuropathy since 2006 DM type 2 causing renal disease ([facility]) DM type 2, goal A1c below [address] Monte Dyslipidemia, goal LDL below 100 primarily high triglycerides Endometrial cancer ([facility]) 1993 ESRD (end stage renal disease) on dialysis ([facility]) 03/14/2021 HTN, goal below 130/80 Kidney disease, chronic, stage III (GFR 30-59 ml/min) ([facility]) 10/02/2011 More specified code listed on [...] performed by Honorio Ashford MD at [facility] AV ACCESS, DIRECT ANASTOMOSIS Right 08/16/2021 ARTERIOVENOUS ANASTOMOSIS OPEN DIRECT ANY SITE performed by Sterling Cates MD at [facility] BREAST BIOPSY Left 12/26/2008 Usual Ductal Hyperplasia BREAST BIOPSY Left 09/20/2010 Benign BX LYMPH NODE DEEP AXIL Right 05/22/2021 BIOPSY LYMPH NODE DEEP AXILLARY OPEN performed by Diamond Rivero MD at OR [facility] COLONOSCOPY, DIAGNOSTIC (RECTUM) 12/02/2013 hyperplastic polyps, diverticulosis, repeat 5 yrs/done @ [facility] COLONOSCOPY, DIAGNOSTIC (RECTUM) 12/11/2017 adenomatous polyps, diverticulosis, repeat 5 yrs/[facility] COLONOSCOPY, DIAGNOSTIC (RECTUM) N/A 02/27/2023 diverticulosis/hemorrhoids/biopsies show adenomatous polyps/recall 5 years/Colonoscopy/[place] CORONARY ANGIOGRAPHY W/LEFT HEART CATH 04/13/2013 CORONARY ANGIOGRAPHY W/LEFT HEART CATH performed by Ulises Reed MD at CARDIAC LABS [facility] DIALYIS CIRCUIT VASCULAR EMBOLIZATION OCCLUSION ENDOVASC IMAGING Right 11/27/2021 EMBOLIZATION DIALYSIS CIRCUIT performed by Sterling Cates MD at OR [facility] EGD, FLEXIBLE, DIAGNOSTIC 05/03/2014 mild-mod inflammation/done @ [facility] EGD, FLEXIBLE, DIAGNOSTIC N/A 04/16/2017 ESOPHAGOGASTRODUODENOSCOPY (EGD), FLEXIBLE, TRANSORAL, DIAGNOSTIC performed by Félix Gilliam OR [facility] EGD, FLEXIBLE, DIAGNOSTIC 05/05/2020 mild-mod inflammation on bx / ESOPHAGOGASTRODUODENOSCOPY (EGD), FLEXIBLE, TRANSORAL, DIAGNOSTIC performed by Adin Borja MD at ENDOSCOPY [facility] EGD, FLEXIBLE, DIAGNOSTIC N/A 04/25/2021 ESOPHAGOGASTRODUODENOSCOPY (EGD), FLEXIBLE, TRANSORAL, DIAGNOSTIC performed by Honorio Almendarez MD atENDOSCOPY [facility] EGD, FLEXIBLE, DIAGNOSTIC 06/13/2021 gastrojejunal anastomosis characterized by ulceration, repeat 2 mo / [facility] IDENTIFY SENTINEL NODE, RADIOACTIVE TRACER [...] performed by Jose Devine MD at OR [facility] INTRO CATH DIALYSIS CIRCUIT W/TRANSCATH PLACEMENT IV STENT Right 05/13/2023 AV FISTULOGRAM STENT & PERIPHERAL ANGIOPLASTY performed by Williams Matt MD at OR [facility] INTRO CATH DIALYSIS CIRCUIT W/TRANSCATH PLACEMENT IV STENT Right 12/02/2023 AV FISTULOGRAM STENT & PERIPHERAL ANGIOPLASTY performed by Micheal Urena MD at OR [facility] INTRO CATH DIALYSIS CIRCUIT W/TRANSCATH PLACEMENT IV STENT Right 06/01/2024 AV FISTULOGRAM STENT & PERIPHERAL ANGIOPLASTY performed by Beto Torrez MD at OR [facility] INTRO CATH DIALYSIS CIRCUIT W/TRANSLUM BALLOON ANGIOPLASTY Right 11/27/2021 AV FISTULOGRAM & PERIPHERAL ANGIOPLASTY performed by Sterling Cates MD at OR [facility] INTRO CATH DIALYSIS CIRCUIT W/TRANSLUM BALLOON ANGIOPLASTY Right 05/30/2022 AV FISTULOGRAM & PERIPHERAL ANGIOPLASTY performed by Beto Torrez MD at OR [facility] INTRO CATH DIALYSIS CIRCUIT W/TRANSLUM BALLOON ANGIOPLASTY Right 02/25/2023 AV FISTULOGRAM & PERIPHERAL ANGIOPLASTY performed by Jose Devine MD at OR [facility] INTRO CATH DIALYSIS CIRCUIT W/TRANSLUM BALLOON ANGIOPLASTY Right 03/30/2024 AV FISTULOGRAM & PERIPHERAL ANGIOPLASTY performed by Micheal Urena MD at OR [facility] IR DUPLEX ULTRASOUND (FOR INTERVENTIONAL RADIOLOGY USE ONLY) 03/02/2021 IR FISTULAGRAM AV DIALYSIS SHUNT IR VENOUS ACCESS NON-MEDIPORT 07/18/2022 LAPAROSCOPE PROCEDURE, LIVER N/A 04/16/2017 UNLISTED LAPAROSCOPIC PROCEDURE LIVER performed by Sukumar Polanco MD at OR [facility] LAPAROSCOPE PROCEDURE, LIVER N/A 01/28/2022 UNLISTED LAPAROSCOPIC PROCEDURE LIVER performed by Honorio Ashford MD at OR [facility] LAPAROSCOPIC GASTRIC BYPASS/JODY-EN-Y N/A 04/16/2017 LAPAROSCOPIC GASTRIC RESTRICTIVE BYPASS JODY EN Y performed by Sukumar Polanco MD at OR [facility] LAPAROSCOPY; CHOLECYSTECTOMY N/A 04/16/2017 LAPAROSCOPIC CHOLECYSTECTOMY performed by Sukumar Polanco MD at OR [facility] MISCELLANEOUS ORDER ([facility] ONLY) 05/2009 breast biopsy/ [...] performed by Sukumar Polanco MD at OR [facility] REPLACE,COMP,FLACO CENT ACC DEV N/A 03/22/2021 REPLACEMENT COMPLETE TUNNELED CENTRAL CATHETER NO PORT performed by Luis Fernando Hassan DO at OR [facility] REVISE STOMACH-BOWEL FUSION N/A 01/28/2022 REVISION GASTROJEJUNAL ANASTOMOSIS performed by Honorio Ashford MD at OR [facility] RMV MALG LSN TRK/ARM/LG >4.0CM Right 05/22/2021 EXCISION MALIGNANT TRUNK ARM LEG OVER 4CM performed by Diamond Rivero MD at OR [facility] RPR AA HERNIA 1ST 3-10 CM REDUCIBLE N/A 12/11/2022 INCISIONAL/VENTRAL/SPIGELIAN HERNIA REPAIR INITIAL 3-10 CM REDUCIBLE performed by Eros Dash MD at OR [facility] TOTAL ABD HYSTERECTOMY W/WO REMOVAL OF TUBE(S) Bilateral age 33 TOTAL HYSTERECTOMY TAHBSO (endometrial ca) TRANSECTION VAGUS NRV,TRUNCAL N/A 01/28/2022 LAPAROSCOPIC TRANSECTION VAGUS NERVES TRUNCAL performed by Honorio Ashford MD at OR [facility] UPPER GI ENDOSCOPY Family History Problem Relation [...] level: Not on file Occupational History Employer: [employer] Financial resource strain: Not on file Food [...] file Gets together: Not on file Attends adventist service: Not on file Active member of [...] Not on file Social History Narrative Employed: [employer] Current Outpatient Medications Medication Sig Dispense Refill Melatonin 10 MG Tablet Take 12 mg by mouth at bedtime. Aspirin 81 MG Oral Tablet Chewable Take 1 Tab by mouth at bedtime. with food. 90 Tab 3 FreeStyle Jennifer 2 Sensor Use as directed. Replace every 14 days (supplied through [facility]) 7 Each 3 CPAP every night at [...] Description 07/05/2024 10:00 AM EST Scheduled Telephone [facility], [address] [address] Heidi Garcia RN [address] [facility] [place] [address] 07/13/2024 10:00 AM EST Imaging Radiology [facility] 1st [facility] [address] [facility] [place] [address] 08/10/2024 8:00 AM EST Office Visit Gastroenterology, [facility] [address] [facility] [place] [address] Emi Queen CRNP [address] [facility] [place] [address] 08/10/2024 2:40 PM EST Office Visit Dermatology, [facility] [phone] Joanne Parks PA-C [address] [place] [address] [place] [address] 09/02/2024 10:00 AM EST Nurse Only Nutrition & Weight Management, [facility] [address] [facility] [place] [address] [facility], Nurse Gi Nutrition [facility] [address] [facility] [place] [address] 09/30/2024 11:00 AM EDT Office Visit Podiatry [facility] [address] [facility] [place] [address] Calli Avila DPM 132 [facility] [place] [address] Scheduled Procedures Name Priority Associated Diagnoses Date/Ti [...] this encounter Medical Devices Implanted Type Area Rag Production Worker Device Identifier Shelf Expiration Date Model / Serial / Lot Coil Vortex 35 Pltinm [id number] - [id number] Implanted:Qty: 1 on 11/27/2021 by Sterling Cates MD at [facility] Right: Upper Arm [employer] : NEURO INTR [id number] 08/15/2024 [id number] 1 / / [id number] Coil Vortex 35 Pltinm [id number] - [id number] Implanted:Qty: 1 on 11/27/2021 by Sterling Cates MD at OR [facility] Right: Upper Arm [employer] : NEURO INTR [id number] 08/15/2024 [id number] 1 / / [id number] Coil Vortex 35 Pltinm [id number] - [id number] Implanted:Qty: 1 on 11/27/2021 by Sterling Cates MD at OR [facility] Right: Upper Arm [employer] : NEURO INTR [id number] 08/15/2024 [id number] 1 / / [id number] Coil Vortex 35 Pltinm [id number] - [id number] Implanted:Qty: 1 on 11/27/2021 by Sterling Cates MD at OR [facility] Right: Upper Arm [employer] : NEURO INTR [id number] 05/16/2024 [id number] 1 / / [id number] Azur 35 Detachable 5mm 11cm - [id number] Implanted:Qty: 1 on 03/19/2022 by Jose Devine MD at OR [facility] Right: Wrist [employer] [id number] 10/18/2025 [id number] / / [id number] Azur 35 Detachable 5mm 11cm - [id number] Implanted:Qty: 1 on 03/19/2022 by Jose Devine MD at OR [facility] Right: Wrist [employer] [id number] 06/19/2026 [id number] / / [id number] Mesh Flat Sheet 10x14 [id number] - [id number] Implanted:Qty: 1 on 12/11/2022 by Eros Dash MD at OR [facility] N/A: Abdomen CR BARD : DAVOL [id number] 06/17/2027 [id number] / / [id number] documented as of this encounter Visit Diagnoses Diagnosis Marginal ulcer- Primary Gastrojejunal ulcer, unspecified as acute or chronic, without mention of hemorrhage, perforation, or obstruction ESRD (end stage renal disease) on dialysis ([facility]) End stage renal disease Hypertensive 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 congestive heart failure and stage 5 chronic kidney disease on chronic dialysis ([facility]) Acute posthemorrhagic anemia Type 2 diabetes mellitus 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 dialysis, with long-term current use of insulin ([facility]) Hypothyroidism (acquired) Unspecified hypothyroidism Malignant melanoma of right upper extremity ([facility]) Aortic atherosclerosis ([facility]) Atherosclerosis of aorta Diabetic polyneuropathy associated with type 2 diabetes mellitus ([facility]) Advanced care planning/counseling discussion- Primary Other specified counseling Hypertensive 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 congestive heart failure and stage 5 chronic kidney disease on chronic dialysis ([facility]) Presence of cardiac pacemaker Cardiac pacemaker in situ SSS (sick sinus syndrome) ([facility]) Sinoatrial node dysfunction MINISTERIO on CPAP Obstructive sleep apnea (adult) (pediatric) Hypothyroidism (acquired) Unspecified hypothyroidism Type 2 diabetes mellitus 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 dialysis, with long-term current use of insulin ([facility]) S/P gastric bypass Bariatric surgery status ESRD (end stage renal disease) on dialysis ([facility]) End stage renal disease Recurrent ventral incisional hernia Incisional hernia without mention of obstruction or gangrene NO SHOW/FAILED TO KEEP APPOINTMENT- Primary Chronic diastolic heart failure ([facility])- Primary Chronic diastolic heart failure HTN, goal below 140/90 Unspecified essential hypertension Type 2 diabetes mellitus with hemoglobin A1c goal of less than 7.0% ([facility]) Hypothyroidism (acquired) Unspecified hypothyroidism Dyslipidemia, goal LDL below 100 Other and unspecified hyperlipidemia Major depressive disorder, single episode, moderate ([facility]) Major depressive disorder, single episode, moderate 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, with long-term current use of insulin ([facility]) Hyperparathyroidism, secondary renal (HCC) Secondary hyperparathyroidism (of renal origin) End stage renal disease on dialysis (HCC) End stage renal disease MINISTERIO on CPAP Obstructive sleep apnea (adult) (pediatric) Diarrhea, unspecified type Onychomycosis- Primary Dermatophytosis of nail Type 2 diabetes mellitus 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 dialysis, with long-term current use of insulin ([facility]) Hammer toe of right foot Callus Corns and callosities ESRD (end stage renal disease) on dialysis (HCC) End stage renal disease Screening mammogram for breast cancer documented in this encounter Advance Directives Documents on File Type Date Recorded Patient [employer] Saranya FIGUEROA 11/13/2020 POLST NASREEN SHAW ORDERS [...] Finley Spouse Health Care Agent Care Teams High Speed Printer Operator Relationship Specialty Start Date End Date Luis Fernando Rojas MD [address] [place] [address] PCP - General Family Medicine 09/23/16 documented as of this encounter
--- OUTSIDE RECORDS SUMMARY | 2024-07-08 02:52 | External Medical Summary | Summary of Care ---
Author Name Unknown Organization [facility] Address [address] [place] [address] Phone [phone] Care Team Providers Care Finisher [employer] Name Role Phone Luis Fernando Rojas MD Primary Care Provider [phone] Reason for Visit * Auth/Cert Specialty Diagnoses / Procedures Referred By Contac t Referred To Contact Diagnoses ESRD (end stage renal disease) on dialysis (HCC) ESRD (end stage renal disease) on dialysis ([facility]) [N18.6, Z99.2] Procedures INTRO CATH DIALYSIS CIRCUIT W/TRANSCATH PLACEMENT IV STENT AV FISTULOGRAM STENT & PERIPHERAL ANGIOPLASTY Beto Torrez MD [address] [place] [address] Phone: tel: fax: [place] [facility], OPERATING ROOM [facility] [place], [facility] [address] [place] [address] Phone: tel: Referral ID Status Reason Start Date Expiration Date Visits Re quested Visits Authorized [id number] Encounter Details Date Type Department Care Team (Latest Contact Info) Description 06/01/2024 1:19 PM EST - 06/01/2024 6:21 PM EST Hospital Encounter OR C, OPERATING ROOM [facility], [facility] [address] [place] [address] Beto Torrez MD [address] [place] [address] Discharge Disposition: Home - Self Care Allergies Active Allergy Reactions Criticality Noted Date Comments Salvador Inhibitors Other (Please comment),Cough High HyperKalemia documented as of this encounter (statuses as of 06/02/2024) Medications Melatonin 10 MG Tablet Take 12 mg by mouth at bedtime. Active Aspirin 81 MG Oral Tablet ChewableIndicati ons:Type 2 diabetes mellitus 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 dialysis, with long-term current use of insulin ([facility]) Take 1 Tab by mouth at bedtime. with food. 90 Tab 3 02/17/20 21 Active FreeStyle Jennifer 2 Sensor Use as directed. Replace every 14 days (supplied through [facility]) 7 Each 3 05/17/20 21 Active CPAP [...] IN THE MORNING 90 Tablet 1 4 2:54 PM EDT 03/17/20 24 025 Active Omeprazole 20 MG Oral Capsule Delayed Release (PriLOSEC)Indica tions:Gastroesop hageal reflux disease without esophagitis Take 1 Capsule by mouth in the morning. 100 Capsule 3 4 4:11 PM EDT 03/18/20 24 Active Carvedilol 12.5 MG Oral Tablet (Coreg)Indicatio ns:HTN, goal below 140/90 Take 1 Tablet by mouth in the morning and 1 Tablet before bedtime. 180 Tablet 4 4 1:20 PM EDT 03/20/20 Active Atorvastatin Calcium 40 MG Oral Tablet (Lipitor)Indicat ions:Dyslipidemi a, goal LDL below 100 Take 0.5 Tablets by mouth in the morning. 03/23/20 Active WikiWandTouch Verio In Vitro Strip (Glucose Blood) To test blood sugar 4 times daily. 400 Strip 1 4 6:47 AM EDT 04/20/20 Active [employer]and[employer] Delica Lancets 33G To test blood sugar 4 times daily. 400 Each 1 4 6:47 AM EDT 04/20/20 Active [employer]and[employer] Verio w/Device Kit Use as directed. 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 Magallanes. M-W-F [...] AM EDT): Gabapentin [address] [facility] Assessment & Plan (05/07/2021 11:11 AM EDT): [...] - MIS L 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 Overview (09/20/2021): 2010 L calf MIS 03/2021 R upper arm MM at least 1.1 mm, SLNB negative (0/2), IB Dyslipidemia, goal LDL below 100 Overview (03/16/2010): primarily high triglycerides Assessment & Plan (03/23/2024 1:46 PM EDT): Continues on of atorvastatin, updated medication rec as it said 40 documented as of this encounter (statuses as of 06/02/2024) Resolved Problems Problem Noted Date Diagnosed Date [...] Insulin long-term use 11/19/20182018 Overview (05/20/2019): Duplicate MCC (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 insulin 11/19/2018 [...] T-tube placement 04/16/2017 05/29/2017 [employer] Other*[id number] 04/13/2013 08/27/2016 Overview (04/13/2013): Study Title: Genomic Markers for Patients with Cardiovascular Disease Project # [id number] Cloud Architect: Siena Laws MD [phone] Hypertensive heart disease 03/25/2013 1 07/29/2016 Neuropathy, [...] as of this encounter (statuses as of 06/02/2024) Immunizations Name Administration Dates Next Due COVID-19 mRNA, LNP-s, No Pre serve, 2-Dose Series (Moderna) 04/09/2021,09/23/2020,08/19/2020 COVID-19, LNP-s, No Preserve , Espinoza-sucrose, Ages 12+ (Pfizer) 01/08/2022 HEPATITIS B VACCINE, RECOMB, 20 MCG/ML, ADULT (HEPLISAV-B) 09/05/2021,05/09/2021,04/04/2021,02/18 Hepatitis B, 20+ yrs 09/16/2018,04/14/2018,03/1104/11/2018 Pneumococcal Conjugate Vacci ne, 20-valent ([id number]) 12/02/2023(Deferred: - pt states she's already received) [...] Sign Reading Time Taken Comments Blood Pressure 104/85 06/01/2024 6:00 PM EST Pulse 61 06/01/2024 6:00 PM EST Temperature 36.3 C (97.3 F) 06/01/2024 5:45 PM ES T Respiratory Rate 14 06/01/2024 6:00 PM EST Oxygen Saturation 97% 06/01/2024 6:00 PM EST Inhaled Oxygen Concentration - - Weight [...] Rabia Wiley RN documented in this encounter Discharge Summaries * Winnie Sanchez MD - 06/01/2024 5:25 PM EST [facility] [address] [facility] [address] OUTPATIENT SURGERY DISCHARGE SUMMARY NOTE Name: Candi Finley Location: OR [facility] [place] Date: 06/01/2024 Time: 5:25 PM Date and Time of Procedure: 06/01/2024 at 5:25 PM Surgery Date: 06/01/2024 Procedure(s): AV FISTULOGRAM STENT & PERIPHERAL ANGIOPLASTY (Right) Surgeon: Beto Torrez MD Discharge Diagnosis: End stage renal disease After examination of this patient, I have determined she is ready for discharge to home when the patient meets criteria. Discharge instructions were given to the patient. Winnie Sanchez MD Vascular Surgery Fellow documented in this encounter Discharge Instructions * Discharge Instr - AVS* Winnie Sanchez MD - 06/01/2024 5:24 PM EST Discharge Date: 06/01/2024 You may call Beto Torrez MD of the department of Vascular Surgery at the [facility] [facility] office in [place] at [phone] option 2. After business hours, you may call with emergency questions to [phone] and ask that the on-call Vascular Surgery provider be paged. The information below provides you with the instructions and the list of medications you need to betaking following discharge from the hospital. If you have any questions, please ask before leaving.Please carry this letter with you when you see your doctor in the clinic. If you have questions, you can reach us at the numbers above. Brief summary of your inpatient care: Right upper extremity angiogram and angioplasty Your primary diagnosis at discharge was end stage renal disease. Your doctors during this hospitalization included: Beto Torrez MD Inpatient test results pending: None Complications: none significant Advance Directive Documented: Advance Directive Does the Patient have an Advance Directive? No SUPPLEMENTAL INSTRUCTIONS: Patient instructions: If you go home with [...] pain. If you develop a fever, contact [phone] to schedule an evaluation. Your fistula is okay to use for dialysis at your next session Follow-up in Vascular Surgery Clinic as needed. Special Instructions: For routine questions, your [facility] Vascular Surgery Team prefers the use of [employer]. [employer] is an online internet tool to help you meet your health care needs quickly by providing a secure, confidential way to view your health records and communicate with your [facility] Vascular SurgeryTeam. To sign up for [employer] go to [email or web address], "Click" [place] Now on the right side of the screen and complete the user registration information. HOW TO QUIT SMOKING Smoking is one of the hardest habits to break. About half of all those who have ever smoked have been able to quit, and most of those (about 70%) who still smoke want to quit. Here are some of the best ways to stop smoking. KEEP TRYING: It takes most smokers about 8 tries before they are finally able to fully quit. So, the more often you try and fail, the better your chance of quitting the next time! So, don't give up! GO COLD TURKEY: Most ex-smokers quit cold turkey. Trying to cut back gradually doesn't seem to work as well, perhaps because it continues the smoking habit. Also, it is possible to fool yourself by inhaling more while smoking fewer cigarettes. This results in the same amount of nicotine in your body! GET SUPPORT: Support programs can make an important difference, especially for the heavy smoker. These groups offer lectures, methods to change your behavior and peer support. Call the free national Quitline for more information. 906-XJBX-LIO (554-676-2527). Low-cost or free programs are offered by many hospitals, local chapters of the [place] [employer] (686-325-7431) and the [place] [employer] (253-671-7283). Support at home is important too. Non-smokers can help by offering praise and encouragement. If the smoker fails to quit, encourage them to try again! VISX-HTO-FRUSTFH MEDICINES: For those who can't quit on their own, Nicotine Replacement Therapy (NRT) may make quitting much easier. Certain aids such as the nicotine patch, gum and lozenge are available without a prescription.However, it is best to use these under the guidance of your doctor. The skin patch provides a steady supply of nicotine to the body. Nicotine gum and lozenge gives temporary bursts of low levels of nicotine. Both methods take the edge off the craving for cigarettes. WARNING: If you feel symptoms ofnicotine overdose, such as nausea, vomiting, dizziness, weakness, or fast heartbeat, stop using these and see your doctor. PRESCRIPTION MEDICINES: After evaluating your smoking patterns and prior attempts at quitting, your doctor may offer a prescription medicine. Each has its unique advantage and side effects which your doctor can review with you. HEALTH BENEFITS OF QUITTING: The benefits of quitting start right away and keep improving the longer you go without smoking: -20 minutes: blood pressure and pulse return to normal -8 hours: oxygen levels return to normal -2 days: ability to smell and taste begins to improve as damaged nerves start to regrow -2-3 weeks: circulation and lung function improves -1-9 months: decreased cough, congestion and shortness of breath; less tired -1 year: risk of heart attack decreases by half -5 years: risk of lung cancer decreases by half; risk of stroke becomes the same as a non-smoker documented in this encounter H&P Notes * Antolin Mckeon MD - 06/01/2024 3:51 PM EST HISTORY AND PHYSICAL EXAMINATION - Vascular Surgery [facility] [place]-[address] [address] Name: Candi Finley Location: OR [facility] [place] Date: 06/01/2024 Time: 3:52 PM PRESENTING PROBLEM: Malfunctioning Right AV Fistula HISTORY OF PRESENT ILLNESS: Candi Finley is a 63 year old, female that presents to pre-op today for Right AV Fistulagram with Dr. Torrez. Patient receives dialysis three times per week and reports that it malfunctioned first beginning approximately 2 months ago. No recent changes in medication or medical history. She does not report any new issues or complaints. Also denies fevers, chills, night sweats, nausea,vomiting, diarrhea, chest pain, and shortness of breath. Recently underwent a previous Fistulagram on 03/30/[address] Urena Does the patient take Coumadin (warfarin)? no Does the patient take any other anticoagulants? no Previous H+P (03/30/24) HISTORY OF PRESENT ILLNESS: Candi Finley is a 63 year old, female that presents to pre-op today for right AV fistulagram, possible angioplasty with Dr. Urena. Does not report any new issues or complaints since the last clinic visit. Also denies fevers, chills, night sweats, nausea, vomiting, diarrhea, chest pain, and shortness of breath. Does the patient take Coumadin (warfarin)? no Does the patient take any other anticoagulants? Yes, ASA 81 last taken 03/29 Phone encounter (03/17/2024) Patti from [employer] calling regarding possible angiogram or fistula gram. Pt is having low accessflow and clearance. Relevant surgical history: 08/16/2021 Right wrist radiocephalic [...] angioplasty of cephalic vein with 7 mm [employer] [place] balloons) 2. Coil embolization of of competing [...] angioplasty (Cephalic vein angioplasty with 5 mm [employer] IN.PACT drug eluting balloon and 6 mm [employer] [place] balloon) -- Dr. Devine 05/13/2023 1. Right upper extremity diagnostic fistulagram with peripheral venous angioplasty 2. Cephalic vein angioplasty with 6mm balloon --Dr. Matt 12/02/2023 Right arm fistulagram with forearm cephalic vein angioplasty HOSPITAL PROBLEM LIST: 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 Type 2 diabetes mellitus with hemoglobin A1c goal of less than 7.0% (HCC) Vitamin D deficiency HTN, goal below 140/90 Major depressive disorder, recurrent episode, moderate with seasonal pattern ([facility]) Rosacea Hypothyroidism (acquired) Mitral annular calcification Type 2 diabetes mellitus with diabetic polyneuropathy, with long-term current use of insulin (HCC) Chronic diastolic heart failure (HCC) History of endometrial cancer Hyperparathyroidism, secondary renal (HCC) MINISTERIO on CPAP Stable proliferative diabetic retinopathy of both eyes associated with type 2 diabetes mellitus ([facility]) SALVADOR inhibitor intolerance SSS (sick sinus syndrome) (HCC) PAT (paroxysmal atrial tachycardia) ([facility]) Gastroesophageal reflux disease without esophagitis Hypertensive 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 congestive heart failure and stage 5 chronic kidney disease on chronic dialysis (HCC) Morbid obesity with BMI of 40.0-44.9, adult ([facility]) Postsurgical malabsorption, not elsewhere classified Diabetic gastroparesis ([facility]) Type 2 diabetes mellitus 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 dialysis, with long-term current use of insulin (HCC) Presence of cardiac pacemaker End stage renal disease on dialysis (HCC) Marginal ulcer Aortic atherosclerosis (HCC) MOR[employer] RESEARCH OTHER*[id number] S/P gastric bypass 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 ([facility]) Pulmonary hypertension, unspecified ([facility]) Recurrent ventral incisional hernia Major depressive disorder, single episode, moderate ([facility]) 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, with long-term current use of insulin ([facility]) PAST MEDICAL HISTORY: Past Medical History: Diagnosis [...] Historical Malignant melanoma of right upper extremity ([facility]) 05/07/2021 Malignant neoplasm of corpus uteri ([facility]) 1993 Melanoma ([facility]) L calf R arm Motion sickness Neuropathy, diabetic ([facility]) 02/18/2013 Osteoarthritis of hip mild to mod bilat hip pain Other specified anemias low iron Other specified glaucoma denied by patient PONV (postoperative nausea and vomiting) Renal failure hemodialysis SBO (small bowel obstruction) ([facility]) 04/25/2017 Sleep apnea 07/2009 CPAP 11 cm H2O. C-flex 2 PAST SURGICAL HISTORY: Past Surgical History: Procedure Laterality Date ABD WALL HERNIA REPAIR, LAP, REDUCIBLE N/A 01/28/2022 LAPAROSCOPIC VENTRAL/UMBILICAL HERNIA REPAIR, REDUCIBLE W OR W/O MESH performed by Honorio Ashford MD at OR [facility] [place] AV ACCESS, DIRECT ANASTOMOSIS Right 08/16/2021 ARTERIOVENOUS ANASTOMOSIS OPEN DIRECT ANY SITE performed by Sterling Cates MD at [facility] BREAST BIOPSY Left 12/26/2008 Usual Ductal Hyperplasia BREAST BIOPSY Left 09/20/2010 Benign BX LYMPH NODE DEEP AXIL Right 05/22/2021 BIOPSY LYMPH NODE DEEP AXILLARY OPEN performed by Diamond Rivero MD at OR [facility] COLONOSCOPY, DIAGNOSTIC (RECTUM) 12/02/2013 hyperplastic polyps, diverticulosis, repeat 5 yrs/done @ [facility] COLONOSCOPY, DIAGNOSTIC (RECTUM) 12/11/2017 adenomatous polyps, diverticulosis, repeat 5 yrs/[facility] COLONOSCOPY, DIAGNOSTIC (RECTUM) N/A 02/27/2023 diverticulosis/hemorrhoids/biopsies show adenomatous polyps/recall 5 years/Colonoscopy/[place] CORONARY ANGIOGRAPHY W/LEFT HEART CATH 04/13/2013 CORONARY ANGIOGRAPHY W/LEFT HEART CATH performed by Ulises Reed MD at CARDIAC LABS [facility] [place] DIALYIS CIRCUIT VASCULAR EMBOLIZATION OCCLUSION ENDOVASC IMAGING Right 11/27/2021 EMBOLIZATION DIALYSIS CIRCUIT performed by Sterling Cates MD at OR [facility] [place] [facility] EGD, FLEXIBLE, DIAGNOSTIC 05/03/2014 mild-mod inflammation/done @ [facility] EGD, FLEXIBLE, DIAGNOSTIC N/A 04/16/2017 ESOPHAGOGASTRODUODENOSCOPY (EGD), FLEXIBLE, TRANSORAL, DIAGNOSTIC performed by Sukumar Polanco [facility] OR [facility] EGD, FLEXIBLE, DIAGNOSTIC 05/05/2020 mild-mod inflammation on bx / ESOPHAGOGASTRODUODENOSCOPY (EGD), FLEXIBLE, TRANSORAL, DIAGNOSTIC performed by Adin Borja MD at ENDOSCOPY [facility] EGD, FLEXIBLE, DIAGNOSTIC N/A 04/25/2021 ESOPHAGOGASTRODUODENOSCOPY (EGD), FLEXIBLE, TRANSORAL, DIAGNOSTIC performed by Honorio Almendarez MD atENDOSCOPY [facility] EGD, FLEXIBLE, DIAGNOSTIC 06/13/2021 gastrojejunal anastomosis characterized by ulceration, repeat 2 mo / [facility] IDENTIFY SENTINEL NODE, RADIOACTIVE TRACER Right 05/22/2021 INJECTION PROCEDURE FOR IDENTIFICATION SENTINEL NODE performed by Diamond Rivero MD at OR [facility] INFORMATION Left 2019 Pacemaker placement. INTRO CATH DIALYSIS CIRCUIT DX ANGIOGRAPHY FLUORO S&I Right 10/10/2022 AV FISTULOGRAM DIAGNOSTIC performed by Jose Devine MD at OR [facility] INTRO CATH DIALYSIS CIRCUIT W/TRANSCATH PLACEMENT IV STENT Right 03/19/2022 AV FISTULOGRAM STENT & PERIPHERAL ANGIOPLASTY performed by Jose Devine MD at OR [facility] [place] INTRO CATH DIALYSIS CIRCUIT W/TRANSCATH PLACEMENT IV STENT Right 05/13/2023 AV FISTULOGRAM STENT & PERIPHERAL ANGIOPLASTY performed by Williams Matt MD at OR [facility] [place] INTRO CATH DIALYSIS CIRCUIT W/TRANSCATH PLACEMENT IV STENT Right 12/02/2023 AV FISTULOGRAM STENT & PERIPHERAL ANGIOPLASTY performed by Micheal Urena MD at OR [facility] [place] INTRO CATH DIALYSIS CIRCUIT W/TRANSLUM BALLOON ANGIOPLASTY Right 11/27/2021 AV FISTULOGRAM & PERIPHERAL ANGIOPLASTY performed by Sterling Cates MD at OR [facility] [place] INTRO CATH DIALYSIS CIRCUIT W/TRANSLUM BALLOON ANGIOPLASTY Right 05/30/2022 AV FISTULOGRAM & PERIPHERAL ANGIOPLASTY performed by Beto Torrez MD at OR [facility] INTRO CATH DIALYSIS CIRCUIT W/TRANSLUM BALLOON ANGIOPLASTY Right 02/25/2023 AV FISTULOGRAM & PERIPHERAL ANGIOPLASTY performed by Jose Devine MD at OR [facility] [place] INTRO CATH DIALYSIS CIRCUIT W/TRANSLUM BALLOON ANGIOPLASTY Right 03/30/2024 AV FISTULOGRAM & PERIPHERAL ANGIOPLASTY performed by Micheal Urena MD at OR [facility] [place] IR DUPLEX ULTRASOUND (FOR INTERVENTIONAL RADIOLOGY USE ONLY) 03/02/2021 IR VENOUS ACCESS NON-MEDIPORT 07/18/2022 LAPAROSCOPE PROCEDURE, LIVER N/A 04/16/2017 UNLISTED LAPAROSCOPIC PROCEDURE LIVER performed by Sukumar Polanco MD at [facility] LAPAROSCOPE PROCEDURE, LIVER N/A 01/28/2022 UNLISTED LAPAROSCOPIC PROCEDURE LIVER performed by Honorio Ashford MD at OR [facility] [place] [facility] LAPAROSCOPIC GASTRIC BYPASS/JODY-EN-Y N/A 04/16/2017 LAPAROSCOPIC GASTRIC RESTRICTIVE BYPASS JODY EN Y performed by Sukumar Polanco MD at [facility] LAPAROSCOPY; CHOLECYSTECTOMY N/A 04/16/2017 LAPAROSCOPIC CHOLECYSTECTOMY performed by Sukumar Polanco MD at [facility] MISCELLANEOUS ORDER ([facility] ONLY) 05/2009 breast biopsy/ [...] performed by Sukumar Polanco MD at OR [facility] [place] REPLACE,COMP,FLACO CENT ACC DEV N/A 03/22/2021 REPLACEMENT COMPLETE TUNNELED CENTRAL CATHETER NO PORT performed by Luis Fernando Hassan DO at OR [facility] REVISE STOMACH-BOWEL FUSION N/A 01/28/2022 REVISION GASTROJEJUNAL ANASTOMOSIS performed by Honorio Ashford MD at OR [facility] [facility] RMV MALG LSN TRK/ARM/LG >4.0CM Right 05/22/2021 EXCISION MALIGNANT TRUNK ARM LEG OVER 4CM performed by Diamond Rivero MD at OR [facility] RPR AA HERNIA 1ST 3-10 CM REDUCIBLE N/A 12/11/2022 INCISIONAL/VENTRAL/SPIGELIAN HERNIA REPAIR INITIAL 3-10 CM REDUCIBLE performed by Eros Dash MD at OR [facility] [place] TOTAL ABD HYSTERECTOMY W/WO REMOVAL OF TUBE(S) Bilateral age 33 TOTAL HYSTERECTOMY TAHBSO (endometrial ca) TRANSECTION VAGUS NRV,TRUNCAL N/A 01/28/2022 LAPAROSCOPIC TRANSECTION VAGUS NERVES TRUNCAL performed by Honorio Ashford MD at OR [facility] [place] [facility] UPPER GI ENDOSCOPY FAMILY HISTORY: Family History Problem Relation Name Age of [...] Vaping Use Vaping status: Never Used Substance Use Topics Alcohol use: No Drug use: No CURRENT HOSPITAL MEDICATIONS: Note that completed medications (per the MAR) continue to display for 24 hours. Ordered medicationsto be given in the future also display. Current Facility-Administered Medications Medication Dose Route Frequency Provider 1/2 NSS infusion Intravenous Continuous Abundio Bird CRNP ceFAZolin in dextrose (Ancef) ivpb 2 g 2 g IV Piggyback Pre-Op Abundio Bird CRNP sodium chloride 0.9 % flush peripheral sugey 3 mL 3 mL IV Push Q Shift Abundio Bird CRNP ALLERGIES: Salvador inhibitors ROS: All other systems negative except for those in the history of present illness (HPI). PHYSICAL EXAMINATION: BP: 121 mmHg/64 mmHg (06/01/241512) Pulse: 64 (06/01/241512) Resp: 16 (06/01/241512) Temp: 36.89 C (06/01/241512) Temp Summary: Temp Min: 36.9 C (98.4 F) Max: 36.9 C (98.4 F) SpO2: 99 % (06/01/241512) O2 flow rate: 0 L/MIN (06/01/241522) Supplemental O2 Delivery: Room Air, None (06/01/241522) Gen: A&Ox3 HENT: Supple, No LAD Pulm: Comfortable on RA Cardio: RRR on monitor Abd: Soft, non distended, no masses MSK: Spont moves extremities Neuro: Motor sensory intact Vascular: Palpable radial pulse bilaterally, Right AVF pulsatile with minimal thrill LABS: Labs reviewed as indicated below: Recent Results (from the past 12 hours) GLUCOSE METER, POINT OF CARE Collection Time: 06/01/24 3:41 PM Result Value Ref Range GLUCOSE - POCT 167 (H) 70 - 120 mg/dL IMAGING: No imaging results in the last 72 hours IMPRESSION and PLAN: - Plan for Right AV Fistulagram with Dr. Torrez Today (06/01/24) Antolin Mckeon MD PGY-1 Orthopaedic Surgery 06/01/2024 3:52 PM Cosigned by Beto Torrez MD at 06/01/2024 4:01 PM EST documented in this encounter Nursing Notes * Chica Tamez RN - 06/01/2024 5:34 PM EST Dual Licensed Skin Assessment completed by self and Kassandra Prakash RN. The patient is/has a N/A Skin Breakdown (includes non blanchable erythema): Yes - Surgical/Procedural changes only. * Selena Bang RN - 06/01/2024 3:31 PM EST Dual Licensed Skin Assessment completed by Renae Bang RN and Renae Reed RN. The patient is/has a N/A Skin Breakdown (includes non blanchable erythema): No * Freddie Hanson RN - 05/26/2024 9:02 AM EST NO ANESTHESIA EVAL REQUESTED PER CASE DOCUMENTATION. PREOP PATIENT INFORMATION AND EDUCATION: MEDICATION INSTRUCTIONS: The day of surgery/procedure, you may TAKE the following medications with a sip of water up to 2 hours prior to your arrival time: Per vascular telephone encounter on 05/25/24: Please take your morning meds with a SIP of water EXCEPT humalog insulin 24 hours prior to surgery/procedure DO NOT [...] RESTRICTIVE guidelines that you have been provided. Nothing to eat or drink by mouth after midnight the night before surgery including no food, no gum/hard candy, coffee, tea, other drink, or tobacco product. Contact your surgeon's office if you develop [...] deodorants after bathing. No hairspray, or nail bulgarian on fingers or toes. Day of surgery/procedure [...] name and bring to hospital. -An escort fast food delivery driver is required if you are being [...] taxi home, you must have your responsible green party accompany you in the taxi ride home [...] is important to make arrangements for a fast food delivery driver to take you home. Please be aware our visitation policies are subject to change Professionals, attendants, caregivers or family members are allowable visitors for patients with intellectual, developmental or cognitive disabilities, communication barriers or behavioral concerns. Because patients' and families' needs vary, they will be taken into account when applying visitation restrictions. [facility]: Contact # [phone] Directions to Surgical Suite in from the Mari Entrance The Surgical Waiting Room can be found in the Lobby of [facility]. Enter through Main Lobby Entrance and the Waiting Room is directly in front of you. Proceed to check in and give them your name. Directions to Surgical Suite from the East Entrance Enter the East entrance and follow the hallway to the J elevator. Take the J elevator up to Level 1. Continue down the long hallway to the main [facility] Lobby. The Surgical Waiting Room will be on your Right. Proceed to check in and give them your Name. Directions to Surgical Suite from the Parking Garage Enter the [facility] lobby and proceed down the mcdonnell to the left. At the end of the mcdonnell, turn right. Continue down the long hallway to the main [facility] Lobby. The Surgical Waiting Room will be on your Right. Proceed to check in and give them your Name. Pre-operative chart review completed-instructions provided based on current medication list in [facility] Presurgery instructions sent to patient via [employer] message. documented in this encounter OR Notes * OR Surgeon - Beto Torrez MD - 06/01/2024 5:04 PM EST [facility] [address] [facility] [id number] OPERATIVE REPORT Name: Candi Finley Date: 06/01/2024 Time: 5:04 PM Location: [place] [facility] [place] Service: Vascular Surgery Date of Operation: 06/01/2024 Pre-op Diagnosis: Malfunctioning right radial artery to cephalic vein arteriovenous fistula Post-op Diagnosis: Same Surgeon: Beto Torrez MD Assistants: Winnie Sanchez MD Anesthesia: Monitored local anesthesia with sedation Operation: Diagnostic fistulagram with peripheral venous angioplasty Findings: Patent arteriovenous anastomosis. Stenotic cephalic vein(s). Patent innominate subclavianand axillary veins Specimen and Disposition: None Estimated Blood Loss: 5 ml Fluids: 100 mL crystalloid Urine Output: None Drains/Implants: * No implants in log * Complications: None Postoperative Condition: Stable Indications and History: Candi Finley presents with a malfunctioning right radial artery to cephalic vein arteriovenous fistula. We plan to proceed with fistulagram and intervention to improve access function. Description of Operation: The patient was seen in the Holding Room and the site of surgery properly noted and marked. The patient was identified by name (Candi Finley), and the procedure verified. In the operating room, a Time Out was held and the above information confirmed. After satisfactory anesthesia, the right upper extremity was prepped and draped in the usual sterile fashion. The arteriovenous fistula was punctured centrally. After a series of standard maneuvers, a 4 Frenchmicrosheath was left within the AV fistula at the puncture site. A complete fistulagram was performed. Findings are as noted above. Next, a guidewire was threaded through the micro-sheath and this was up sized to a 6 Kenyan sheath. The stenotic portion of the cephalic vein was crossed with a guidewire and underwent angioplasty using a 6 mm drug eluting angioplasty balloon. Follow-up imaging revealed a satisfactory result. The indwelling sheath(s) were removed and the puncture site(s) were closed with a 4-0 Monocryl suture. All guidewires and catheters were removed. Hemostasis was good. Sponge count and needle counts were correct. Attestation: I was present and scrubbed for the entire procedure documented in this encounter Plan of Treatment Upcoming Encounters Date Type Department Care Team (Late st Contact Info) Description 06/02/2024 9:20 AM EST Office Visit Nutrition & Weight Management, [facility] [address] [facility] [place] [address] Cleo Fonseca PA-C [address] [facility] [place] [address] 06/03/2024 8:15 AM EST Cardiac Studies Cardiac Studies, [facility] [address] [facility] [place] [address] 06/24/2024 2:30 PM EST Appointment Radiology [facility], [facility] [address] [place] [address] 06/29/2024 10:00 AM EST Home Visit [facility] [address] [facility] [place] [address] Heidi Garcia RN [address] [facility] [place] [address] 07/01/2024 10:00 AM EST Office Visit Podiatry [facility] [address] [facility] [place] [address] Calli Avila DPM [address] [facility] [place] [address] 07/13/2024 10:00 AM EST Imaging Radiology [facility] [address] [facility] [place] [address] [facility] [place] [address] 08/10/2024 8:00 AM EST Office Visit Gastroenterology, [facility] [address] [facility] [place] [address] Emi Queen CRNP [address] [place] [address] Scheduled Procedures Name Priority Associated Diagnoses Date/Ti me COLONOSCOPY FLEXIBLE PROXIMA L DIAGNOSTIC Recall History of colonic polyps Health Maintenance Due Date Last Done Comments Cologuard 12/23/2003 Fecal Occult Blood Test 12/23/2003 Sigmoidoscopy 12/23/2003 Pneumococcal Vaccine: 65+ Years (3 of 3 - PCV) 08/30/2015 08/30/2014, 09/18/2013, 07/28/2007 TSH 01/23/2023 01/23/2022, 07/21, 05/18/2021, Additional history exists Diabetic Foot Exam 10/16/2023 10/15/2022, 0 01/31/2021, 04/12/2020, Additional history exists COVID-19 Vaccine ( season) 2024 01/08/2022, 04/09/2021, 09/23/2020, Additional history exists Mammogram 07/08/2024 07/08/2023, 06/20, [...] Completed 09/05/2021, 05/09/2021, 04/04/2021, Additional history exists RETIRED - COLONOSCOPY-EVERY 5 YRS AGES 18-100 Discontinued 02/27/2023, 12/11/2017, 12/02/2013, Additional history exists Influenza Vaccine (FLU shot) Completed 05/05/2024, 04/17/2023, 04/20/2022, Additional history exists HPV (Gardasil) Vaccine Aged Out No lo nger eligible based on patient's age to complete this topic MENINGOCOCCAL (MENACTRA/MENVEO) Aged Out No longer eligible based on patient's age to complete this topic documented as of this encounter Medical Devices Implanted Type Area Dedicated Intermodal Truck Driver Device Identifier Shelf Expiration Date Model / Serial / Lot Coil Vortex 35 Pltinm [id number] - [id number] Implanted:Qty: 1 on 11/27/2021 by Sterling Cates MD at OR [facility] [place] Right: Upper Arm [employer] : NEURO INTR [id number] 08/15/2024 [id number] / / [id number] Coil Vortex 35 Pltinm [id number] - [id number] Implanted:Qty: 1 on 11/27/2021 by Sterling Cates MD at OR [facility] [place] Right: Upper Arm [employer] : NEURO INTR [id number] 08/15/2024 [id number] 1 / / [id number] Coil Vortex 35 Pltinm [id number] - [id number] Implanted:Qty: 1 on 11/27/2021 by Sterling Cates MD at OR [facility] [place] Right: Upper Arm [employer] : NEURO INTR [id number] 08/15/2024 [id number] 1 / / [id number] Coil Vortex 35 Pltinm [id number] - [id number] Implanted:Qty: 1 on 11/27/2021 by Sterling Cates MD at OR [facility] [place] Right: Upper Arm [employer] : NEURO INTR [id number] 05/16/2024 [id number] 1 / / [id number] Azur 35 Detachable 5mm 11cm - [id number] Implanted:Qty: 1 on 03/19/2022 by Jose Devine MD at OR [facility] [place] Right: Wrist [employer] [id number] 10/18/2025 [id number] / / [id number] Azur 35 Detachable 5mm 11cm - [id number] Implanted:Qty: 1 on 03/19/2022 by Jose Devine MD at OR [facility] [place] Right: Wrist [employer] [id number] 06/19/2026 [id number] / / [id number] Mesh Flat Sheet 10x14 [id number] - [id number] Implanted:Qty: 1 on 12/11/2022 by Eros Dash MD at OR [facility] [place] N/A: Abdomen CR BARD : DAVOL [id number] 06/17/2027 [id number] / / [id number] documented as of this encounter Procedures Procedure Name Priority Date/Time Associated Diagnosis Comments GLUCOSE METER, POINT OF CARE [facility] 06/01/2024 5:17 PM EST VASC PROCEDURE IN VASCULAR ANGIO SUITE Routine 06/01/2024 5:07 PM EST POTASSIUM, WHOLE BLOOD STAT 06/01/2024 4:00 PM EST GLUCOSE METER, POINT OF CARE [facility] 06/01/2024 3:41 PM EST documented in this encounter Results * (ABNORMAL) GLUCOSE METER, POINT OF CARE (06/01/2024 5:17 PM EST) Pathologist [facility] GLUCOSE - POCT 158(H) 70 - 120 mg/dL 06/01/2024 5:19 PM EST [facility] [employer] [facility] Blood Whole blood specimen / Unknown 06/01/2024 5:17 PM EST 06/01/2024 5:19 PM EST us Beto Torrez MD LAB POINT OF C ARE TEST DOCKED DEVICE UNSOLICITED RESULTS Final Result [facility] [address] [place] [address] * VASC PROCEDURE IN VASCULAR ANGIO SUITE (06/01/2024 5:07 PM EST) Narrative Scheduling, Silent - 06/01/2024 5:08 PM EST This procedure will not be read by a Radiologist. Please see operative note. us Beto Torrez MD RAD SPECIAL PROCEDURES Final Result * POTASSIUM, WHOLE BLOOD (06/01/2024 4:00 PM EST) Pathologist [facility] Potassium 4.7 3.5 - 5.1 mmol/L 06/01/2024 4:13 PM EST LABORATORY [facility] [place] Blood Venous blood specimen / Unknown 06/01/2024 4:00 PM EST 06/01/2024 4:08 PM EST us Abundio SINGER LAB BLOOD ORDERABLES F inal Result LABORATORY [facility] [place] [address] [place] [address] * (ABNORMAL) GLUCOSE METER, POINT OF CARE (06/01/2024 3:41 PM EST) GLUCOSE - POCT 167(H) 70 - 120 mg/dL 06/01/2024 3:45 PM EST [facility] Blood Whole blood specimen / Unknown 06/01/2024 3:41 PM EST 06/01/2024 3:45 PM EST us Beto Torrez MD LAB POINT OF C ARE TEST DOCKED DEVICE UNSOLICITED RESULTS Final Result [facility] [address] [place] [address] documented in this encounter Visit Diagnoses Diagnosis Marginal ulcer- Primary Gastrojejunal ulcer, unspecified as acute or chronic, without mention of hemorrhage, perforation, or obstruction ESRD (end stage renal disease) on dialysis (HCC) End stage renal disease Hypertensive 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 congestive heart failure and stage 5 chronic kidney disease on chronic dialysis (HCC) Acute posthemorrhagic anemia Type 2 diabetes mellitus 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 dialysis, with long-term current use of insulin (HCC) Hypothyroidism (acquired) Unspecified hypothyroidism Malignant melanoma of right upper extremity (HCC) Aortic atherosclerosis (HCC) Atherosclerosis of aorta Diabetic polyneuropathy associated with type 2 diabetes mellitus (HCC) Advanced care planning/counseling discussion- Primary Other specified [...] insulin ([facility]) Hyperparathyroidism, secondary renal ([facility]) Secondary hyperparathyroidism (of renal origin) End stage renal disease on dialysis ([facility]) End stage renal disease MINISTERIO on CPAP Obstructive sleep apnea (adult) (pediatric) Diarrhea, unspecified type End stage renal disease on dialysis ([facility])- Primary End stage renal disease Dialysis AV fistula malfunction ([facility]) Mechanical complication of other vascular device, implant, and graft Screening mammogram for breast cancer documented in this encounter Administered Medications Inactive Administered Medications - up to 3 most recent administrations Medication Order MAR Action Action Date Dose Rate Site 1/2 NSS infusion Intravenous, at 10 mL/hr, CONTINUOUS, Starting on Fri06/01/24 at 1545, Until Fri06/01/24 at 2222, Pre-OpIndications:End stage renal disease on dialysis ([facility]) New Bag 06/01/2024 4:25 PM EST New Bag 06/01/2024 4:13 PM EST 10 mL/hr chlorhexidine gluconate cloth 2 % pad External, [id number], First dose on Fri06/02/24 at 1000, Until Discontinued, Applied to appropriate patients per hydroelectric systems technician's recommendations following daily care. May use more than one Pad (cloth/wipe) as needed to complete care., Pre-Op Given By 06/01/2024 3:58 PM EST 1 Pad Arm Right Upper sodium chloride 0.9 % flush peripheral sugey 3 mL 3 mL, IV Push, QSHIFT, First dose on Fri06/01/24 at 1600, Until Discontinued, Do not flush if lock, PICC, or central line not in place; IV infusing or unable to flush., Pre-OpIndications:End stage renal disease on dialysis (HCC) documented in this encounter Active and Recently Administered Medications Times are shown in EST. Scheduled Medication Order 05/30/2024 05/31/2024 06/01/2024 ceFAZolin in dextrose (Ancef) ivpb 2 g (COMPLETED) 2 g, IV Piggyback, PREOP, 1 dose, First dose on Fri06/01/24 at 1545, Administer 60 minutes prior to skin incision, Pre-Op 1645 (Given - Provid er: Williams Coker CRNA) chlorhexidine gluconate cloth 2 % pad External, [id number], First dose on Fri06/02/24 at 1000, Until Discontinued, Applied to appropriate patients per hydroelectric systems technician's recommendations following daily care. May use more than one Pad (cloth/wipe) as needed to complete care., Pre-Op 1558 (Given By - Pro vider: Selena Bang RN - Comment: from wrist to shoulder) sodium chloride 0.9 % flush peripheral sugey 3 mL 3 mL, IV Push, QSHIFT, First dose on Fri06/01/24 at 1600, Until Discontinued, Do not flush if lock, PICC, or central line not in place; IV infusing or unable to flush., Pre-Op 1600 (Due) Continuous Medication Order 05/30/2024 05/31/2024 06/01/2024 1/2 NSS infusion Intravenous, at 10 mL/hr, CONTINUOUS, Starting on Fri06/01/24 at 1545, Until Fri06/01/24 at 2222, Pre-Op 1613 (New Bag - Prov ider: Selena Bang RN)1624 (Paused - Provider: Williams Coker CRNA - Comment: Switch to gravity)1625 (New Bag - Provider: Williams Coker CRNA)1646 (Anes Intra-Op Fluid - Provider: Williams Coker CRNA) PRN Medication Order 05/30/2024 05/31/2024 06/01/2024 bupivacaine HCl 30 mL, lidocaine 1 % 30 mL inj (CANCELED) ONCE PRN INTRA PROCEDURE, Starting on Fri06/01/24 at 1703, Until Fri06/01/24 at 1712, Intra-Op 1703 (Given - Provid er: Beto Torrez MD) hEParin 5,000 Units in NSS 500 mL infusion (CANCELED) ONCE PRN INTRA PROCEDURE, Starting on Fri06/01/24 at 1654, Until Fri06/01/24 at 1712, Intra-Op 1654 (Given - Provid er: Beto Torrez MD - Comment: PRN intraop; flushing and intraarterial injection) Iopamidol (Isovue M 300) inj (CANCELED) ONCE PRN INTRA PROCEDURE, Starting on Fri06/01/24 at 1704, Until Fri06/01/24 at 1712, Intra-Op 1704 (Given - Provid er: Álvaro Houser RN) documented in this encounter Advance Directives Documents on File Type Date Recorded 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
--- OUTSIDE RECORDS SUMMARY | 2024-07-08 02:52 | External Medical Summary | Summary of Care ---
Author Name Unknown Organization [facility] Address [address] [place] [address] Phone [phone] Care Team Providers Care [employer] Boss Name Role Phone Luis Fernando Rojas MD Primary Care Provider [phone] Reason for Referral * Evaluate & Treat - Unlimited Visits (Within 10 days (routine)) - Authorized Specialty Diagnoses / Procedures Referred By Mikey torres Referred To Contact Gastroenterology Diagnoses Diarrhea, unspecified type Cleo Fonseca PA-C [address] [place] [address] Phone: tel: fax: Referral ID Status Reason Start Date Expiration Date Visits Requested Visits Authorized [id number] Authorized Specialty Services Required 4 [phone] Question Answer Referral Priority Within 10 days (routine) Where should this appointment be scheduled? [facility] For what condition is the patient being referred? All Gastro Conditions Comments Diarrhea, normal stool studies. S/p gastric bypass. Reason for Visit * Reason Comments Follow Up Return for weight lo ss. Stopped Ozempic. Pt having diarrhea. Encounter Details Date Type Department Care Team (Late st Contact Info) Description 06/02/2024 9:20 AM EST Office Visit Nutrition & Weight Management, [facility] [address] [place] [address] Cleo Fonseca PA-C [address] [place] [address] Intestinal postoperative nonabsorption*; Diarrhea, unspecified type Allergies Active Allergy Reactions Criticality Noted Date Comments Salvador Inhibitors Other (Please comment),Cough High HyperKalemia documented as of this encounter (statuses as of 06/02/2024) Medications Melatonin 10 MG Tablet Take 12 mg by mouth at bedtime. Active Aspirin 81 MG Oral Tablet ChewableIndicati ons:Type 2 diabetes mellitus 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 dialysis, with long-term current use of insulin ([facility]) Take 1 Tab by mouth at bedtime. [...] hemoglobin A1c goal of less than 7.0% ([facility]) Use 4 times daily with insulin 400 [...] Capsule 3 4 4:11 PM EDT 03/18/20 Active Carvedilol 12.5 MG Oral Tablet (Coreg)Indicatio ns:HTN, goal below 140/90 Take 1 Tablet by mouth in the morning and 1 Tablet before bedtime. 180 Tablet 4 4 1:20 PM EDT 03/20/20 Active Atorvastatin Calcium 40 MG Oral Tablet (Lipitor)Indicat ions:Dyslipidemi a, goal LDL below 100 Take 0.5 Tablets by mouth in the morning. 03/23/20 Active studentSNTouch VerLayerVault In Vitro Strip (Glucose Blood) To test blood sugar 4 times daily. 400 Strip 1 4 6:47 AM EDT 04/20/20 Active OneTouch Delica Lancets 33G To test blood sugar 4 times daily. 400 Each 1 4 6:47 AM EDT 04/20/20 Active studentSNTouch Verio w/Device Kit Use as directed. 1 Kit 4 6:47 AM EDT 04/20/20 Active buPROPion HCl ER (SR) 150 MG Oral Tablet Extended Release 12 Hour (Wellbutrin SR) Take 1 Tablet by mouth every evening. 90 Tablet 06/02/20 Active Hospital, Clinic, or Other Facility Administered Medication Ordered Dose Route Frequency Start Date End Date Status vitamin b-12 (Cyanocobalamin) inj 1,000 mcgIndications:S/P gastric bypass 1000 mcg IM [id number] 10/15/2022 07/19/2025 Active vitamin b-12 (Cyanocobalamin) inj 1,000 mcgIndications:Morbid obesity with BMI of 40.0-44.9, adult (HCC),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 [id number] 10/17/2023 12/11/19 25 Active documented as of [...] 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 10/15/2022 [facility] OTHER*[id number] 01/01/2022 S/P gastric bypass 01/01/2022 Dialysis AV [...] Assessment & Plan (05/07/2021 11:01 AM EDT): [facility] since January, Dr. Magallanes. M-W-F [...] 8:45 AM EDT): Gabapentin 600 mg at [facility] Assessment & Plan (05/07/2021 11:11 [...] Insulin long-term use 11/19/20182018 Overview (05/20/2019): Duplicate [facility] (current) use [...] T-tube placement 04/16/2017 05/29/2017 [employer] Other*[id number] 04/13/2013 08/27/2016 Overview (04/13/2013): Study Title: Genomic Markers for Patients with Cardiovascular Disease Project # [id number] Automobile Seat Cover Installer: Siena Laws MD [phone] Hypertensive heart disease 03/25/2013 1 07/29/2016 Neuropathy, [...] CG/0.3 mL, 12 YRS AND ABOVE, IM ([place]-Comirnaty) 06/02/2024 HEPATITIS B VACCINE, RECOMB, 20 MCG/ML, ADULT (HEPLISAV-B) 09/05/2021,05/09/2021,04/04/2021,02/18 Hepatitis B, 20+ yrs 09/16/2018,04/14/2018,03/1104/11/2018 Pneumococcal Conjugate Vacci ne, 20-valent ([id number]) 12/02/2023(Deferred: - pt states she's already received) [...] Sign Reading Time Taken Comments Blood Pressure 110/74 06/02/2024 9:38 AM EST Pulse 88 06/02/2024 9:38 AM EST Temperature 36.6 C (97.9 F) 06/02/2024 9:38 AM ES T Respiratory Rate - - Oxygen Saturation - - Inhaled Oxygen Concentration - - Weight 105.4 kg (232 lb 4.8 oz) 06/02/2024 9:38 AM EST Height 160 cm (5' 3") 06/02/2024 9:38 AM EST Body Mass Index 41.15 06/02/2024 9:38 AM EST documented in this encounter Functional Status * Are you deaf or do you have serious difficulty hearing? Answer Date of Assessment Author No 12/11/2022 6:51 PM EDRabia Owens RN * Are you blind or do [...] documented in this encounter Progress Notes * Edison Zamora LPN - 06/02/2024 10:17 AM EST Pre-Administration Time Out Procedure Performed: Yes Patient Identified (Ask Name/Date of ): Yes Does the patient have a fever greater than 101 degrees today? No Patient allergic to latex? No Has the patient ever fainted after receiving an injection? No VFC Stock: No Injection(s) verified: Yes, Injection Name: B12 Verified Side and Site: Yes Verified Shot(s) with Parent(s)/Patient: Yes Cleo Reyes PA-C - 06/02/2024 9:51 AM EST [facility] Post Revision Patient location: HOME. I was not in a hospital or clinic location. After connecting through [employer], patient was verified with two unique identifiers. Patient (or authorized legal circulation sales representative) was then informed that this was a Telemedicine visit and being conducted confidentially over secure lines. Methods to assure confidentiality were taken. Patient acknowledged consent and understanding of privacy and security of the Telemedicine visit. The patient agreed to participate. Nursing Notes: Clara Sanabria CMA 06/02/24 0939 Signed Chief Complaint Patient presents with Follow Up Return for weight loss. Stopped Ozempic. Pt having diarrhea. Referring physician: MD Candi Lazo is a 63 year old female who presents in follow [...] the revision 243 lbs - Today's weight: 232 lbs - Total weight loss of -11 lbs since surgery, and -63 lbs since initial weight in clinic Wt Readings from Last 5 Encounters: 06/02/24 105.4 kg (232 lb 4.8 oz) 05/05/24 101.6 kg (224 lb) 12/26/23 103.5 kg (228 lb 3.2 oz) 12/12/23 104.7 kg (230 lb 14.4 oz) 12/02/23 106.2 kg (234 lb 3.2 oz) 06/02/2024 -in clinic follow up -was on ozempic but had diarrhea-- saw PCP and had normal stool studies -stopped ozempic 2 months but still having same amount of diarrhea -still in dialysis 3 days per week -having diarrhea sometimes 6-7 times per day-- not everyday -thought she was seeing gastroenterology -did break her leg in December-- non weight bearing for a long time 11/07/23 -first visit with RD since 02/28/22 -pt was never technically advanced to stage [address], last visit with RD was 1 m post op -At dialysis during visit -Challenges: still dealing with emotional eating issues, not planning and goal setting, had a PTSD meltdown yesterday -Going through PT right now, and dealing with some dental issues -Looking for a health cheerleading coach through [facility] [employer] -Going well eating things high in fat [...] month post op Admitted with ANASTASIIA at [facility] - going home today Dialysis 3 days a week 02/28/22 -1 month post op 02/07/22 -7-10 day post op Current recommended meal plan: Stage 4: Describes typical diet history/24 hr recall Current diet: Breakfast: cheese, 2 eggs, light bhutanese muffin Snack: Lunch: canned soup, apple, oyster crackers Snack: protein bar Dinner: pulled chicken, hamburger roll, noodles, broccoli Snack: rice cakes Drinks: water, decaf iced tea Restaurant meals: 4x per week Patient is not getting 60 [...] medications: Yes Patient Active Problem List Diagnosis Dyslipidemia, goal [...] of insulin (HCC) Chronic diastolic heart failure (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) SALVADOR inhibitor intolerance SSS (sick sinus syndrome) ([facility]) PAT (paroxysmal atrial tachycardia) ([facility]) Gastroesophageal reflux disease without esophagitis Hypertensive 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 congestive heart failure and stage 5 chronic kidney disease on chronic dialysis ([facility]) Morbid obesity with BMI of 40.0-44.9, adult ([facility]) Postsurgical malabsorption, not elsewhere classified Diabetic gastroparesis ([facility]) Type 2 diabetes mellitus 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 dialysis, with long-term current use of insulin ([facility]) Presence of cardiac pacemaker End stage renal disease on dialysis ([facility]) Marginal ulcer Aortic atherosclerosis ([facility]) Dialysis AV fistula malfunction (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) Pulmonary hypertension, unspecified ([facility]) Recurrent ventral incisional hernia Major depressive disorder, single episode, moderate ([facility]) 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, with long-term current use of insulin ([facility]) Social Connections: Socially Integrated (08/14/2023) Social Connections How often do you feel lonely or isolated from those around you? (Adult - for ages 18 years and over): Never Review of patient's allergies indicates: Allergen Reactions Salvador Inhibitors Other (Please comment) and Cough HyperKalemia Taking supplements as ordered for each of the following: Multivitamin- Pro Renal + Vit D and generic childrens chewable two daily Calcium- calcium citrate 1 daily Vitamin D- 1000 IU C33-[id number] away from that Other for hair-- biotin Current Outpatient Medications Medication Sig Dispense Refill Melatonin 10 MG Tablet Take 12 mg by mouth at bedtime. Aspirin 81 MG Oral Tablet Chewable Take 1 Tab by mouth at bedtime. with food. 90 Tab 3 CPAP every night at bedtime. 12 [...] the morning and 1 Tablet before bedtime. Acetaminophen 325 MG Oral Tablet (Tylenol) Take 2 Tablets by mouth every 6 hours as needed. Calcium Citrate-Vitamin D 315-5 MG-MCG Oral Tablet Take 1 Tablet by mouth in the morning. 600 mg ofcalcium twice daily + 20 mcg of vitamin d twice daily. Calcium Acetate (Phos Binder) 667 MG Oral [...] 45 units per day 30 mL 4 Citalopram Hydrobromide 20 MG Oral Tablet (CeleXA) Take 1 Tablet by mouth in the morning. amLODIPine Besylate 5 MG Oral Tablet (Norvasc) TAKE ONE TABLET BY MOUTH EVERY DAY IN THE MORNING 90Tablet 1 Carvedilol 12.5 MG Oral Tablet (Coreg) Take 1 Tablet by mouth in the morning and 1 Tablet before bedtime. 180 Tablet 4 Atorvastatin Calcium 40 MG Oral Tablet (Lipitor) Take 0.5 Tablets by mouth in the morning. FreeStyle Jennifer 2 Sensor Use as directed. Replace every 14 days (supplied through [facility]) 7 Each 3 Nitroglycerin 0.4 MG Sublingual Tablet Sublingual (Nitrostat) Place under the tongue 1 Tablet as needed for Pain, Chest. May repeat 3 times. If chest pain continues, call 911. 25 Tablet 11 BD Pen Needle Mini U/F 31G X 5 MM (Insulin Pen Needle) Use 4 times daily with insulin 400 Each 3 Abrysvo 120 MCG/0.5ML Intramuscular Solution Reconstituted (RSV Pre-Fusion F A&B Vac Rcmb) Inject IM as directed 1 Each 0 Diclofenac Sodium 1 % External Gel (Voltaren) Apply topically to affected area 3 times a day as needed for Pain. 100 g 2 Omeprazole 20 MG Oral Capsule Delayed Release (PriLOSEC) Take 1 Capsule by mouth in the morning. 100 Capsule 3 OneTouch Verio In Vitro Strip (Glucose Blood) To test blood sugar 4 times daily. 400 Strip 1 studentSNTouch Delica Lancets 33G To test blood sugar 4 times daily. 400 Each 1 OneTouch Verio w/Device Kit Use as directed. 1 Kit 0 COVID-19 mRNA Vac-Espinoza(Maozhao) 30 MCG/0.3ML Intramuscular Suspension Prefilled Syringe (Sensus Experience) Inject into a large muscle. 0.3 mL 0 Current Facility-Administered Medications Medication Dose Route Frequency Provider Last Rate Last Admin vitamin b-12 (Cyanocobalamin) inj 1,000 mcg 1,000 mcg Intramuscular Q12 Weeks Luis Fernando Rojas MD 1,000 mcg at 01/02/23 1242 vitamin b-12 (Cyanocobalamin) inj 1,000 mcg 1,000 mcg Intramuscular Q12 Weeks Cleo Fonseca PA-C Review of Systems: Review of Systems Gastrointestinal: Positive for diarrhea and nausea. Negative for abdominal pain, constipation and vomiting. Diarrhea persists. She reports it started when she started ozempic. Reports she has been off ozempic for over 2 months and still having diarrhea. Had stool studies with PCP. Thought she was seeing gastroenterology today. All other systems reviewed and are negative. Physical Exam: BP 110/74 | Pulse 88 | Temp 36.6 C (97.9 F) | Ht 1.6 m (5' 3") | Wt 105.4 kg (232 lb 4.8 oz) | BMI 41.15 kg/m | BSA 2.16 m Physical Exam Constitutional: Appearance: Normal appearance. She [...] [facility] 8.5 (H) 12/09/2019 08:56 AM HEMOGLOBIN A1C, DBS - [facility] 7.7 (H) 05/07/2024 03:07 PM HEMOGLOBIN I-STAT POCT - [facility] 10.9 (L) [...] Will continue with current meal plan. Vitamins Taking supplements as ordered for each of the following: Multivitamin- Pro Renal + Vit D and generic childrens chewable two daily Calcium- calcium citrate 1 daily Vitamin D- 1000 IU K11-wmrbbc away from that Other for hair-- biotin [...] with BMI of 40.0-44.9, adult (HCC) - start wellbutrin once daily -could re consider GLP-1 in the future once she is evaluated for the diarrhea. Likely related to dietary choices. Aim for 10g or less carbs/sugar at a time. Follow up with RD to review Intestinal postoperative nonabsorption - labs re ordered -she didn't have the labs done from last visit Continue stage 4 diet - reminded on eating behaviors, protein goals; she does have fluid restriction per nephrology PPI: pt remains on treatment daily MINISTERIO: - CPAP Diabetes mellitus type II (HgbA1c 6.7%) - pt has CGM -had diarrhea with ozempic Could consider again with dietary changes On insulin Peripheral neuropathy - cont home dose gabapentin [...] PPI indefinitely ESRD on HD (M,W,F) - continue ProRenal + D oral tablet by mouth daily Vitamin D deficiency: - continue vitamin D 1000 units daily with her ProRenal + D supplement The patient agreed to try the plan as discussed and return in 1-[address]; 3-5 months provider . They were encouraged to call or send a patient portal message in the meantime with any questions or concerns prior to their next visit. I spent a total of 35 minutes on the date of service in [...] to achieve future goals. Cleo Fonseca PA-C, [facility] ([facility]) documented in this encounter Nursing Notes * Clara Sanabria CMA - 06/02/2024 9:38 AM EST Chief Complaint Patient presents with Follow Up Return for weight loss. Stopped Ozempic. Pt having diarrhea. documented in this encounter Plan of Treatment Upcoming Encounters Date Type Department Care Team (Late st Contact Info) Description 06/03/2024 8:15 AM EST Cardiac Studies Cardiac Studies, [facility] [address] [place] [address] 06/24/2024 2:30 PM EST Appointment Radiology [facility], [facility] [address] [facility], [place] [address] 06/29/2024 10:00 AM EST Home Visit [facility] [address] [place] [address] Heidi Garcia, RN [address] [place] [address] 07/01/2024 10:00 AM EST Office Visit Podiatry [facility] [address] [facility] [place] [address] Calli Avila, DAIANA [address] [facility] [place] [address] 07/13/2024 10:00 AM EST Imaging Radiology [facility] 1st Floor, [place] [address] [facility] [place] [address] 08/10/2024 8:00 AM EST Office Visit Gastroenterology, [facility] [address] [facility] [place] [address] Emi Queen CRNP [address] [facility] [place] [address] 09/02/2024 10:00 AM EST Nurse Only Nutrition & Weight Management, [facility] [address] [facility] [place] [address] [facility], Nurse Gi Nutrition [facility] [address] [facility] [place] [address] Scheduled Orders Name Type Priority Associated Diagnoses Orde r Schedule CBC Lab Routine Intestinal postoperative nonabsorption Expected: 06/02/2024 (Approximate), Expires: 11/30/2024 PTH Lab Routine Intestinal postoperative nonabsorption Expected: 06/02/2024 (Approximate), Expires: 11/30/2024 25-HYDROXY VITAMIN D Lab Routine Intestinal postoperative nonabsorption Expected: 06/02/2024 (Approximate), Expires: 11/30/2024 COPPER, SERUM OR PLASMA Lab Routine Intestinal postoperative nonabsorption Expected: 06/02/2024 (Approximate), Expires: 11/30/2024 ZINC Lab Routine Intestinal postoperative nonabsorption Expected: 06/02/2024 (Approximate), Expires: 11/30/2024 VITAMIN B12 Lab Routine Intestinal postoperative nonabsorption Expected: 06/02/2024 (Approximate), Expires: 11/30/2024 COMPREHENSIVE METABOLIC PANEL Lab Routine Intestinal postoperative nonabsorption Expected: 06/02/2024 (Approximate), Expires: 11/30/2024 FOLIC ACID Lab Routine Intestinal postoperative nonabsorption Expected: 06/02/2024 (Approximate), Expires: 11/30/2024 FERRITIN Lab Routine Intestinal postoperative nonabsorption Expected: 06/02/2024 (Approximate), Expires: 11/30/2024 IRON SCREEN, INCLUDING TIBC Lab Routine Intestinal postoperative nonabsorption Expected: 06/02/2024 (Approximate), Expires: 11/30/2024 VITAMIN A (RETINOL) Lab Routine Intestinal postoperative nonabsorption Expected: 06/02/2024 (Approximate), Expires: 11/30/2024 VITAMIN B1 (THIAMINE), BLOOD, LC/MS/MS Lab Routine Intestinal postoperative nonabsorption Expected: 06/02/2024 (Approximate), Expires: 11/30/2024 HEMOGLOBIN A1C Lab Routine Intestinal postoperative nonabsorption Expected: 06/02/2024 (Approximate), Expires: 11/30/2024 LIPID PANEL WITH DIRECT LDL IF TG IS HIGH Lab Routine Intestinal postoperative nonabsorption Expected: 06/02/2024 (Approximate), Expires: 11/30/2024 Scheduled Procedures Name Priority Associated Diagnoses Date/Ti me COLONOSCOPY FLEXIBLE PROXIMA L DIAGNOSTIC Recall History of colonic polyps Scheduled Referrals Name Type Priority Associated Diagnoses Order Schedule ADULT GASTROENTEROLOGY REFERRAL OP Referral Within 10 days (routine) Diarrhea, unspecified type Ordered: 06/02/2024 Health Maintenance Due Date Last Done Comments Cologuard 12/23/2003 Fecal Occult Blood Test 12/23/2003 Sigmoidoscopy 12/23/2003 Pneumococcal Vaccine: 65+ Years (3 of 3 - PCV) 08/30/2015 08/30/2014, 09/18/2013, 07/28/2007 TSH 01/23/2023 01/23/2022, 07/21, 05/18/2021, Additional history exists Diabetic Foot Exam 10/16/2023 10/15/2022, 0 01/31/2021, 04/12/2020, Additional history exists Mammogram 07/08/2024 07/08/2023, 06/20, 04/18/2022, Additional history exists Depression Monitoring 08/14/2024 08/14/2023 HbA1c 11/05/2024 05/07/2024, 0511/2022, 07/01/2022, Additional history exists Diabetic Eye Exam [...] this encounter Medical Devices Implanted Type Area Shanker Out Device Identifier Shelf Expiration Date Model / Serial / Lot Coil Vortex 35 Pltinm [id number] - [id number] Implanted:Qty: 1 on 11/27/2021 by Sterling Cates MD [place] [facility] [place]: Upper Arm [employer] : NEURO INTR [id number] 08/15/2024 [id number] Coil Vortex 35 Pltinm [id number] - [id number] Implanted:Qty: 1 on 11/27/2021 by Sterling Cates MD at [place] [facility] Right: Upper Arm [employer] : NEURO INTR [id number] 08/15/2024 [id number] / [id number] Coil Vortex 35 Pltinm [id number] - [id number] Implanted:Qty: 1 on 11/27/2021 by Sterling Cates MD at [place] [facility] Right: Upper Arm [employer] : NEURO INTR [id number] 08/15/2024 [id number] / / [id number] Coil Vortex 35 Pltinm [id number] - [id number] Implanted:Qty: 1 on 11/27/2021 by Sterling Cates MD at [place] [facility] Right: Upper Arm [employer] : NEURO INTR [id number] 05/16/2024 [id number] / / [id number] Azur 35 Detachable 5mm 11cm - [id number] Implanted:Qty: 1 on 03/19/2022 by Jose Devine MD at [place] [facility] Right: Wrist [employer] [id number] 10/18/2025 [id number] / / [id number] Azur 35 Detachable 5mm 11cm - [id number] Implanted:Qty: 1 on 03/19/2022 by Jose Devine MD at [place] [facility] Right: Wrist [employer] [id number] 06/19/2026 [id number] / / [id number] Mesh Flat Sheet 10x14 [id number] - [id number] Implanted:Qty: 1 on 12/11/2022 by Eros Dash MD at [place] [facility] N/A: Abdomen CR BARD : DAVOL [id number] 06/17/2027 [id number] / / [id number] documented as of this encounter Visit Diagnoses [...] dialysis, with long-term current use of insulin ([facility]) S/P gastric bypass Bariatric surgery status ESRD (end stage renal disease) on dialysis ([facility]) End stage renal disease Recurrent ventral incisional hernia Incisional hernia without mention of obstruction or gangrene NO SHOW/FAILED TO KEEP APPOINTMENT- Primary Chronic diastolic heart failure ([facility])- Primary Chronic diastolic heart failure HTN, goal below 140/90 Unspecified essential hypertension Type 2 diabetes mellitus with hemoglobin A1c goal of less than 7.0% ([facility]) Hypothyroidism (acquired) Unspecified hypothyroidism Dyslipidemia, goal LDL below 100 Other and unspecified hyperlipidemia Major depressive disorder, single episode, moderate ([facility]) Major depressive disorder, single episode, moderate 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, with long-term current use of insulin ([facility]) Hyperparathyroidism, secondary renal (HCC) Secondary hyperparathyroidism (of renal origin) End stage renal disease on dialysis ([facility]) End stage renal disease MINISTERIO on CPAP Obstructive sleep apnea (adult) (pediatric) Diarrhea, unspecified type Intestinal postoperative nonabsorption- Primary Other and unspecified postsurgical nonabsorption Diarrhea, unspecified type Screening mammogram for breast cancer documented in this encounter Administered Medications Active Administered Medications - up to 3 most recent administrations Medication Order MAR Action Action Date Dose Rate Site vitamin b-12 (Cyanocobalamin) inj 1,000 mcg 1,000 mcg, Intramuscular, [id number], First dose on Fri10/15/22 at 0930, Last dose on Fri04/26/25 at 0930, For 12 doses, Every 3-4 monthsIndications:S/P gastric bypass Given 06/02/2024 10:19 AM EST 1,000 mcg Deltoid Left Upper Given 01/02/2023 12:42 PM EDT 1,000 mcg D eltoid Left Upper documented in this encounter Advance Directives Documents on File Type Date Recorded Patient Classification Clerk Expl anation POLST 11/13/2020 POLST PENNSYLVA [...] Finley Spouse Health Care Agent Care Teams [employer] Crew Boss Relationship Specialty Start Date End Date Luis Fernando Rojas MD [address] [place] [address] PCP - General Family Medicine 09/23/16 documented as of this encounter
--- OUTSIDE RECORDS SUMMARY | 2024-07-08 02:52 | External Medical Summary ---
Author Name Unknown Address Unknown Organization : Laboratory Report Ordering Provider Test Date Status ALEXANDER HUTCHINS 06/01/2024 15:41:18 Final Observation Date Value Abnormality Reference (Units ) Status Glucose Point of Care 06/01/2024 15:41:18 167 Above high normal 70-120 (mg/dL) Final Performing Location
--- OUTSIDE RECORDS SUMMARY | 2024-07-08 02:52 | External Medical Summary ---
Author Name Unknown Address Unknown Organization : Laboratory Report Ordering Provider Test Date Status ALEXANDER HUTCHINS 06/01/2024 17:17:03 Final Observation Date Value Abnormality Reference (Units ) Status Glucose Point of Care 06/01/2024 17:17:03 158 Above high normal 70-120 (mg/dL) Final Performing Location
--- OUTSIDE RECORDS SUMMARY | 2024-07-08 02:52 | External Medical Summary | Summary of Care ---
Author Name Unknown Organization [facility] Address [address] [place] [address] Phone [phone] Care Team Providers Care Business Librarian Name Role Phone Luis Fernando Rojas MD Primary Care Provider [phone] Encounter Details Date Type Department Care Team (Late st Contact Info) Description 05/27/2024 Population Health External Data Unspecified Department Allergies Active Allergy Reactions Criticality Noted Date Comments Salvador Inhibitors Other (Please comment),Cough High HyperKalemia documented as of this encounter (statuses as of 06/03/2024) Medications Melatonin 10 MG Tablet Take 12 [...] Tablet 4 4 1:20 PM EDT 03/20/20 24 Active Atorvastatin Calcium 40 MG Oral Tablet (Lipitor)Indicat ions:Dyslipidemi a, goal LDL below 100 Take 0.5 Tablets by mouth in the morning. 03/23/20 24 Active Planet DDS In Vitro Strip (Glucose Blood) To test blood sugar 4 times daily. 400 Strip 1 4 6:47 AM EDT 04/20/20 Active [employer] Delica Lancets 33G To test blood sugar 4 times daily. 400 Each 1 4 6:47 AM EDT 04/20/20 24 Active Planet DDS w/Device Kit Use as directed. 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 10/15/2022 [facility] OTHER*[id number] 01/01/2022 S/P gastric bypass 01/01/[address]22 [address] [...] 8:45 AM EDT): Gabapentin 600 mg at [facility] Assessment & Plan (05/07/2021 11:11 AM EDT): [...] as of this encounter (statuses as of 06/03/2024) Resolved Problems Problem Noted Date Diagnosed Date [...] T-tube placement 04/16/2017 05/29/2017 [employer] Other*[id number] 04/13/2013 08/27/2016 Overview (04/13/2013): Study Title: Genomic Markers for Patients with Cardiovascular Disease Project # [id number] Delivery Assistant: Siena Laws MD [phone] Hypertensive heart disease 03/25/2013 1 07/29/2016 Neuropathy, [...] as of this encounter (statuses as of 06/03/2024) Immunizations Name Administration Dates Next Due COVID-19 mRNA, LNP-s, No Pre serve, 2-Dose Series (Moderna) 04/09/2021,09/23/2020,08/19/2020 COVID-19, LNP-s, No Preserve , Espinoza-sucrose, Ages 12+ (Pfizer) 01/08/2022 HEPATITIS B VACCINE, RECOMB, 20 MCG/ML, ADULT (HEPLISAV-B) 09/05/2021,05/09/2021,04/04/2021,02/18 Hepatitis B, 20+ yrs 09/16/2018,04/14/2018,03/1104/11/2018 Pneumococcal Conjugate Vacci ne, 20-valent ([id number]) 12/02/2023(Deferred: - pt states she's already received) [...] Rabia Granados RN documented in this encounter Plan of Treatment Upcoming Encounters Date Type Department Care Team (Late st Contact Info) Description 06/24/2024 2:30 PM EST Appointment Radiology [facility], [address] [phone] 06/29/2024 10:00 AM EST Home Visit [facility] [address] [place] [address] Heidi Garcia RN [address] [place] [address] 07/01/2024 10:00 AM EST Office Visit Podiatry [facility] [address] [facility] [place] [address] Calli Avila, DPM [address] [facility] [place] [address] 07/13/2024 10:00 AM EST Imaging Rad[facility] [address] [facility] [place] [address] 08/10/2024 8:00 AM EST Office Visit Gastroenterology, [facility] [address] [facility] [place] [address] Emi Queen CRNP [address] [facility] [place] [address] 09/02/2024 10:00 AM EST Nurse Only Nutrition & Weight Management, [facility] [address] [facility] [place] [address] [facility], Nurse Gi Nutrition [facility] [address] [facility] [place] [address] Scheduled Procedures Name Priority Associated Diagnoses Date/Ti [...] this encounter Medical Devices Implanted Type Area Orthotic Fitter Device Identifier Shelf Expiration Date Model / Serial / Lot Coil Vortex 35 Pltinm [id number] - [id number] Implanted:Qty: 1 on 11/27/2021 by Sterling Cates MD [place] [facility] [place]: Upper Arm [employer] : NEURO INTR [id number] 08/15/2024 [id number] / / [id number] Coil Vortex 35 Pltinm [id number] - [id number] Implanted:Qty: 1 on 11/27/2021 by Sterling Cates MD [place] [facility] [place]: Upper Arm [employer] : NEURO INTR [id number] 08/15/2024 [id number] / / [id number] Coil Vortex 35 Pltinm [id number] - [id number] Implanted:Qty: 1 on 11/27/2021 by Sterling Cates MD at [place] [facility] [place]: Upper Arm [employer] : NEURO INTR [id number] 08/15/2024 [id number] / / [id number] Coil Vortex 35 Pltinm [id number] - [id number] Implanted:Qty: 1 on 11/27/2021 by Sterling Cates MD at [place] [facility] [place]: Upper Arm [employer] : NEURO INTR [id number] 05/16/2024 [id number] / / [id number] Azur 35 Detachable 5mm 11cm - [id number] Implanted:Qty: 1 on 03/19/2022 by Jose Devine MD at [place] [facility] [place] Right: Wrist [employer] [id number] 10/18/2025 [id number] / / [id number] Azur 35 Detachable 5mm 11cm - [id number] Implanted:Qty: 1 on 03/19/2022 by Jose Devine MD at [place] [facility] [place] Right: Wrist [employer] [id number] 06/19/2026 [id number] / / [id number] Mesh Flat Sheet 10x14 [id number] - [id number] Implanted:Qty: 1 on 12/11/2022 by Eros Dash MD at [place] [facility] [place] N/A: Abdomen CR BARD : DAVOL [id number] 06/17/2027 [id number] / / [id number] documented as of this encounter Advance Directives Documents on File Type Date Recorded 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
--- OUTSIDE RECORDS SUMMARY | 2024-07-08 02:52 | External Medical Summary | Summary of Care ---
Author Name Unknown Organization [facility] Address [address] [place] [address] Phone [phone] Care Team Providers Care Athletic Equipment Manager Name Role Phone Luis Fernando Rojas MD Primary Care Provider [phone] Encounter Details Date Type Department Care Team (Late st Contact Info) Description 03/03/2024 Telephone [facility] [address] [place] [address] Luis Fernando Rojas MD [address] [place] [address] Allergies Active Allergy Reactions Criticality Noted Date Comments Salvador Inhibitors Other (Please comment),Cough High HyperKalemia documented as of this encounter (statuses as of 06/02/2024) Medications Melatonin 10 MG Tablet Take 12 mg by mouth at bedtime. Active Aspirin 81 MG Oral Tablet ChewableIndicat ions:Type 2 diabetes mellitus 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 dialysis, with long-term current use of insulin (HCC) Take 1 Tab by mouth at bedtime. with food. 90 Tab 3 021 Active FreeStyle Jennifer 2 Sensor Use as directed. Replace every 14 days (supplied through DME) 7 Each 3 Active CPAP every night at bedtime. 12 Active ProRenal + D Oral Tablet Take by mouth 1 Tablet daily . Active Vitamin D 125 MCG (5000 UT) [...] pain continues, call 911. 25 Tablet 11 Active Acetaminophen 325 MG Oral Tablet (Tylenol) Take 2 Tablets by mouth every 6 hours as needed. Active Calcium Citrate-Vitamin D 315-5 MG-MCG Oral Tablet Take 1 Tablet by mouth in the morning. 600 mg of calcium twice daily + 20 mcg of vitamin d twice daily. Active BD Pen Needle Mini U/F 31G X 5 MM (Insulin Pen Needle)Indicati ons:Type 2 diabetes mellitus with hemoglobin A1c goal of less than 7.0% (HCC) Use 4 times daily with insulin 400 Each 3 05/02/20 23 5:15 PM EDT 023 Active Calcium Acetate (Phos Binder) 667 MG Oral Capsule (Phoslo) TAKE THREE CAPSULES BY MOUTH WITH EACH MEAL AND TWO CAPSULES WITH SNACKS 1300 Capsule 3 04/23/20 24 3:37 PM EDT 023 Active Levothyroxine Sodium 100 MCG Oral Tablet (Levoxyl)Indica tions:Hypothyro idism, unspecified type TAKE 1 TABLET BY MOUTH DAILY AT LEAST 30 MINUTES PRIOR TO FIRST MEAL OF THE DAY OR OTHER MEDICATIONS 90 Tablet 3 03/17/20 24 2:12 PM EDT 024 Active Gabapentin 300 MG Oral Capsule (Neurontin) Take 1 Capsule by mouth at bedtime. Follow up with your primary care provider for further management. 90 Capsule 3 04/29/20 24 11:42 AM EDT 024 Active Insulin Glargine Solostar 100 UNIT/ML Subcutaneous Solution Pen-injector (Basaglar Winnie)Indicat ions:Type 2 diabetes mellitus with hemoglobin A1c goal of less than 7.0% (HCC) Inject 16 units subcutaneously every day. 30 mL 4 024 Active Insulin Lispro (1 Unit Dial) 100 UNIT/ML Subcutaneous Solution Pen-injector (HumaLOG KwikPen)Indicat ions:Type 2 diabetes mellitus with hemoglobin A1c goal of less than 7.0% (HCC) Inject 14 units with breakfast, 4 units with lunch and 16 units with supper + CF 1:25 over 150. Max dose of 45 units per day 30 mL 4 024 Active Diclofenac Sodium 1 % External Gel (Voltaren) Apply topically to affected area 3 times a day as needed for Pain. 100 g 2 02/17/20 24 2:10 PM EDT 024 Active Citalopram Hydrobromide 20 MG Oral Tablet (CeleXA) Take 1 Tablet by mouth in the morning. Active Ketoconazole 2 % External Shampoo (Nizoral)Indica tions:Seborrhei c dermatitis Apply to scalp once weekly. Lather and leave on for 5 minutes before rinsing. Alternate with over the counter anti-dandruff shampoos on off days. 120 mL 5 022 2023 Discontinued(D ischarged) hydrALAZINE HCl 100 MG Oral TabletIndicatio ns:HTN, goal below 140/90 TAKE 1 TABLET BY MOUTH EVERY DAY IN THE MORNING AND 1 TABLET AT NOON, AND 1 TABLET AT BEDTIME 270 Tablet 2 09/10/19 24 4:27 PM EST 023 2023 Discontinued Carvedilol 12.5 MG Oral Tablet (Coreg)Indicati ons:HTN, goal below 140/90 TAKE ONE TABLET BY MOUTH EVERY DAY IN THE MORNING AND TAKE ONE TABLET BY MOUTH EVERY DAY BEFORE BEDTIME 180 Tablet 4 09/10/19 24 4:27 PM EST 023 2023 Discontinued(M edication List Clean Up) Omeprazole 20 MG Oral Capsule Delayed Release (PriLOSEC)Indic ations:Gastroes ophageal reflux disease without esophagitis Take 1 Capsule by mouth in the morning. 100 Capsule 1 09/10/19 24 4:27 PM EST 023 2023 Discontinued(R efill) amLODIPine Besylate 5 MG Oral Tablet (Norvasc) TAKE ONE TABLET BY MOUTH EVERY DAY IN THE MORNING 90 Tablet 1 09/10/19 24 4:27 PM EST 023 2023 Discontinued(R efill) Atorvastatin Calcium 40 MG Oral Tablet (Lipitor)Indica tions:Dyslipide jennifer, goal LDL below 100 TAKE ONE TABLET BY MOUTH EVERY EVENING 90 Tablet 3 03/17/20 24 2:12 PM EDT 024 2023 Discontinued Semaglutide(0.2 5 or 0.5MG/DOS) 2 MG/3ML Solution Pen-injector (Ozempic)Indica tions:Type 2 diabetes mellitus with hemoglobin A1c goal of less than 7.0% (HCC) Inject 0.25 mg under the skin for 4 weeks, then increase to 0.5 mg weekly thereafter 3 mL 3 10/21/19 24 1:23 PM EDT 024 2023 Discontinued(D ischarged) Carvedilol 6.25 MG Oral Tablet (Coreg) Take 1 Tablet by mouth 2 times a day with morning and evening meals. 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 10/15/2022 [facility] OTHER*[id number] 01/01/2022 S/P gastric bypass 01/01/[address] [...] 8:45 AM EDT): Gabapentin 600 mg at [facility] Assessment & Plan (05/07/2021 11:11 [...] Insulin long-term use 11/19/20182018 Overview (05/20/2019): 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 11/19/2018 10/08/2022 Morbid [...] T-tube placement 04/16/2017 05/29/2017 [employer] Other*[id number] 04/13/2013 08/27/2016 Overview (04/13/2013): Study Title: Genomic Markers for Patients with Cardiovascular Disease Project # [id number] Program Aide: Siena Laws MD [phone] Hypertensive heart disease 03/25/2013 1 07/29/2016 Neuropathy, [...] yrs 09/16/2018,04/14/2018,03/1104/11/2018 Pneumococcal Conjugate Vacci ne, 20-valent ([id number]) 12/02/2023(Deferred: - pt states she's already received) [...] of Assessment Author No 12/11/2022 6:51 PM Siena Granados RN * Do you have difficulty [...] encounter Miscellaneous Notes * Telephone Encounter - Ronda Delgadillo MED ASSIST - 03/03/2024 2:40 PM EDT Received paperwork from [facility] for home health certification and plan of care/hospiceorders. Placed in provider's bin for signatures. documented in this encounter Plan of Treatment Upcoming Encounters Date Type Department Care Team (Late st Contact Info) Description 06/03/2024 8:15 AM EST Cardiac Studies Cardiac Studies, [facility] [address] [address] 06/24/2024 2:30 PM EST Appointment Radiology [address] [place] [address] 06/29/2024 10:00 AM EST Home Visit [facility] [address] [place] [address] Heidi Garcia RN [address] [place] [address] 07/01/2024 10:00 AM EST Office Visit Podiatry [facility] [address] [place] [address] Calli Avila DPM [address] [place] [address] 07/13/2024 10:00 AM EST Imaging Radiology [facility] [address] [facility] [address] [facility] [place] [address] 08/10/2024 8:00 AM EST Office Visit Gastroenterology, [facility] [address] [facility] [place] [address] Emi Queen CRNP [address] [facility] [place] [address] 09/02/2024 10:00 AM EST Nurse Only Nutrition & Weight Management, [facility] [address] [facility] [place] [address] [facility], Nurse Gi Nutrition [facility] [address] [facility] [place] [address] Scheduled Procedures Name Priority Associated Diagnoses Date/Ti [...] this encounter Medical Devices Implanted Type Area Paper Slitter Device Identifier Shelf Expiration Date Model / Serial / Lot Coil Vortex 35 Pltinm [id number] - [id number] Implanted:Qty: 1 on 11/27/2021 by Sterling Cates MD at [place] [facility] [place] Right: Upper Arm [employer] : NEURO INTR [id number] 08/15/2024 [id number] Coil Vortex 35 Pltinm [id number] - [id number] Implanted:Qty: 1 on 11/27/2021 by Sterling Ctaes MD at OR [facility] [place] Right: Upper Arm [employer] : NEURO INTR [id number] 08/15/2024 [id number] Coil Vortex 35 Pltinm [id number] - [id number] Implanted:Qty: 1 on 11/27/2021 by Sterling Cates MD at OR [facility] [place] Right: Upper Arm [employer] : NEURO INTR [id number] 08/15/2024 [id number] / / [id number] Coil Vortex 35 Pltinm 110000 - [id number] Implanted:Qty: 1 on 11/27/2021 by Sterling Cates MD at OR [facility] [place] Right: Upper Arm [employer] : NEURO INTR [id number] 05/16/2024 [id number] / / [id number] Azur 35 Detachable 5mm 11cm - [id number] Implanted:Qty: 1 on 03/19/2022 by Jose Devine MD at [place] [facility] [place] Right: Wrist [employer] [id number] 10/18/2025 [id number] / / [id number] Azur 35 Detachable 5mm 11cm - [id number] Implanted:Qty: 1 on 03/19/2022 by Jose Devine MD at OR [facility] [place] Right: Wrist [employer] [id number] 06/19/2026 [id number] / / [id number] Mesh Flat Sheet 10x14 [id number] - [id number] Implanted:Qty: 1 on 12/11/2022 by Eros Dash MD at OR [facility] [place] N/A: Abdomen CR BARD : DAVOL [id number] 06/17/2027 [id number] / / [id number] documented as of this encounter Additional Health Concerns Infection Onset Date Last Indicated Resolved Time Gastrointestinal Rule-Out 03/26/2024 03/26/2024 7:06 PM EDT C. 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
--- OUTSIDE RECORDS SUMMARY | 2024-07-08 02:52 | External Medical Summary | Summary of Care ---
Author Name Unknown Organization [facility] Address [address] [place] [address] Phone [phone] Care Team Providers Care Aeronautical Engineering Technologist Name Role Phone Luis Fernando Rojas MD Primary Care Provider [phone] Reason for Visit * Reason Comments Acute Pt here today due to having a possible sinus infection. Also pt's tailporfirio has been sore since she fell Encounter Details Date Type Department Care Team (Late st Contact Info) Description 06/22/2024 7:40 AM EST Office Visit [facility] [address] [facility] [place] [address] Mohini Marley MD [address] [facility] [place], [place] [id number] Chronic sinusitis, unspecified location*; Risk and functional assessment; Personal history of fall; Injury of coccyx, initial encounter; Allergic rhinitis, unspecified seasonality, unspecified trigger; Type 2 diabetes mellitus with hemoglobin A1c goal of less than 7.0% ([facility]) Allergies Active Allergy Reactions Criticality Noted [...] [facility] 7 Each 3 05/17/20 21 Active CPAP [...] 1 4 6:47 AM EDT 04/20/20 Active Ventus MedicalTouch Verio w/Device Kit Use as directed. 1 [...] 1,000 mcgIndications:S/P gastric bypass 1000 mcg IM [id number] 10/15/2022 07/19/2025 Active vitamin b-12 (Cyanocobalamin) inj 1,000 mcgIndications:Morbid obesity with BMI of 40.0-44.9, adult (HCC),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 [id number] 10/17/2023 12/11/19 25 Active documented as of [...] 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 10/15/2022 [facility] [employer] OTHER*[id number] 01/01/2022 S/P gastric bypass 01/01/2022 Dialysis AV [...] Assessment & Plan (05/07/2021 11:01 AM EDT): [facility] since January, Dr. Magallanes. 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 [...] T-tube placement 04/16/2017 05/29/2017 [employer] Other*[id number] 04/13/2013 08/27/2016 Overview (04/13/2013): Study Title: Genomic Markers for Patients with Cardiovascular Disease Project # [id number] Search Analyst: Siena Laws MD [phone] Hypertensive heart disease 03/25/2013 1 07/29/2016 Neuropathy, [...] CG/0.3 mL, 12 YRS AND ABOVE, IM (PFIZER-Comirnat) 06/02/2024 HEPATITIS B VACCINE, RECOMB, 20 MCG/ML, ADULT (HEPLISAV-B) 09/05/2021,05/09/2021,04/04/2021,02/18 Hepatitis B, 20+ yrs 09/16/2018,04/14/2018,03/1104/11/2018 Pneumococcal Conjugate Vacci ne, 20-valent ([id number]) 12/02/2023(Deferred: - pt states she's already received) [...] this encounter Patient Instructions * Patient Instructions* Mohini Marley MD - 06/22/2024 7:34 AM EST Take augmentin [...] pathway between the bedroom and the bathroom [employer] Patient Education Copyright 2008 - 2010 [email or web address] except where otherwise noted Preventing Falls: Exercises [...] 10 times. Repeat this throughout the day. Aure Patient Education Copyright 2009 - 2010 [...] please feel free to contact our office. documented in this encounter Progress Notes * Mohini Marley MD - 06/22/2024 7:52 [...] of less than 7.0% ([facility]) Vitamin D deficiency HTN, goal below 140/90 Major depressive disorder, recurrent episode, moderate with seasonal pattern ([facility]) Rosacea Hypothyroidism (acquired) Mitral annular calcification Type 2 diabetes mellitus with diabetic polyneuropathy, with long-term current use of insulin ([facility]) Chronic diastolic heart failure ([facility]) History of endometrial cancer Hyperparathyroidism, secondary renal (HCC) MINISTERIO on CPAP Stable proliferative diabetic retinopathy of both eyes associated with type 2 diabetes mellitus ([facility]) SALVADOR inhibitor intolerance SSS (sick sinus syndrome) ([facility]) PAT (paroxysmal atrial tachycardia) ([facility]) Gastroesophageal reflux disease without esophagitis Hypertensive 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 congestive heart failure and stage 5 chronic kidney disease on chronic dialysis ([facility]) Morbid obesity with BMI of 40.0-44.9, adult ([facility]) Postsurgical malabsorption, not elsewhere classified Diabetic gastroparesis ([facility]) Type 2 diabetes mellitus 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 dialysis, with long-term current use of insulin ([facility]) Presence of cardiac pacemaker End stage renal disease on dialysis ([facility]) Marginal ulcer Aortic atherosclerosis ([facility]) Dialysis AV fistula malfunction ([facility]) [employer] OTHER*[id number] S/P gastric bypass 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 ([facility]) Pulmonary hypertension, unspecified (HCC) Recurrent ventral incisional hernia Major depressive disorder, single episode, moderate (HCC) 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, with long-term current use of insulin ([facility]) Current Outpatient Medications Medication Sig Dispense Refill Melatonin 10 MG Tablet Take 12 mg by mouth at bedtime. Aspirin 81 MG Oral Tablet Chewable Take 1 Tab by mouth at bedtime. with food. 90 Tab 3 FreeStyle Jennifer 2 Sensor Use as directed. Replace every 14 days (supplied through [facility]) 7 Each 3 CPAP every [...] 0.5 Tablets by mouth in the morning. [employer] Verio In Vitro Strip (Glucose Blood) To test blood sugar 4 times daily. 400 Strip 1 [employer] Delica Lancets 33G To test blood sugar 4 times daily. 400 Each 1 Ventus MedicalTouch Verio w/Device Kit Use as directed. 1 [...] ESRD (end stage renal disease) on dialysis ([facility]) 03/14/2021 HTN, goal below 130/80 Kidney disease, chronic, stage III (GFR 30-59 ml/min) ([facility]) 10/02/2011 More specified code listed on PL Historical Malignant melanoma of right upper extremity (HCC) 05/07/2021 Malignant neoplasm of corpus uteri ([facility]) 1993 Melanoma ([facility]) L calf R arm Motion sickness Neuropathy, diabetic ([facility]) 02/18/2013 Osteoarthritis of hip mild to mod bilat hip pain Other specified anemias low iron Other specified glaucoma denied by patient PONV (postoperative nausea and vomiting) Renal failure hemodialysis SBO (small bowel obstruction) ([facility]) 04/25/2017 Sleep apnea 07/2009 CPAP 11 cm H2O. C-flex 2 Past Surgical History: Procedure Laterality Date ABD WALL HERNIA REPAIR, LAP, REDUCIBLE N/A 01/28/2022 LAPAROSCOPIC VENTRAL/UMBILICAL HERNIA REPAIR, REDUCIBLE W OR W/O MESH performed by Honorio Ashford MD at OR [facility] AV ACCESS, DIRECT ANASTOMOSIS Right 08/16/2021 ARTERIOVENOUS ANASTOMOSIS OPEN DIRECT ANY SITE performed by Sterling Cates MD at [facility] BREAST BIOPSY Left 12/26/2008 Usual Ductal Hyperplasia BREAST BIOPSY Left 09/20/2010 Benign BX LYMPH NODE DEEP AXIL Right 05/22/2021 BIOPSY LYMPH NODE DEEP AXILLARY OPEN performed by Diamond Rivero MD at OR [facility] COLONOSCOPY, DIAGNOSTIC (RECTUM) 12/02/2013 hyperplastic polyps, diverticulosis, repeat 5 yrs/done @ [facility] COLONOSCOPY, DIAGNOSTIC (RECTUM) 12/11/2017 adenomatous polyps, diverticulosis, repeat 5 yrs/[facility] COLONOSCOPY, DIAGNOSTIC (RECTUM) N/A 02/27/2023 diverticulosis/hemorrhoids/biopsies show adenomatous polyps/recall 5 years/Colonoscopy/[place] CORONARY ANGIOGRAPHY W/LEFT HEART CATH 04/13/2013 CORONARY ANGIOGRAPHY W/LEFT HEART CATH performed by Ulises Reed MD at [facility] DIALYIS CIRCUIT VASCULAR EMBOLIZATION OCCLUSION ENDOVASC IMAGING Right 11/27/2021 EMBOLIZATION DIALYSIS CIRCUIT performed by Sterling Cates MD at OR [facility] EGD, FLEXIBLE, DIAGNOSTIC 05/03/2014 mild-mod inflammation/done @ [facility] EGD, FLEXIBLE, DIAGNOSTIC N/A 04/16/2017 ESOPHAGOGASTRODUODENOSCOPY (EGD), FLEXIBLE, TRANSORAL, DIAGNOSTIC performed by Félix Gilliam OR [facility] EGD, FLEXIBLE, DIAGNOSTIC 05/05/2020 mild-mod inflammation on bx / ESOPHAGOGASTRODUODENOSCOPY (EGD), FLEXIBLE, TRANSORAL, DIAGNOSTIC performed by Adin Borja MD at ENDOSCOPY [facility] EGD, FLEXIBLE, DIAGNOSTIC N/A 04/25/2021 ESOPHAGOGASTRODUODENOSCOPY (EGD), FLEXIBLE, TRANSORAL, DIAGNOSTIC performed by Honorio Almendarez MD atENDOSCOPY [facility] EGD, FLEXIBLE, DIAGNOSTIC 06/13/2021 gastrojejunal anastomosis characterized by ulceration, repeat 2 mo / [facility] IDENTIFY SENTINEL NODE, RADIOACTIVE TRACER Right 05/22/2021 INJECTION PROCEDURE FOR IDENTIFICATION SENTINEL NODE performed by Diamond Rivero MD at OR [facility] INFORMATION Left 2019 Pacemaker placement. INTRO CATH DIALYSIS CIRCUIT DX ANGIOGRAPHY FLUORO S&I Right 10/10/2022 AV FISTULOGRAM DIAGNOSTIC performed by Jose Devine MD at OR [facility] INTRO CATH DIALYSIS CIRCUIT W/TRANSCATH PLACEMENT IV STENT Right 03/19/2022 AV FISTULOGRAM STENT & PERIPHERAL ANGIOPLASTY performed by Jose Devine MD at OR [facility] INTRO CATH DIALYSIS CIRCUIT W/TRANSCATH PLACEMENT IV STENT Right 05/13/2023 AV FISTULOGRAM STENT & PERIPHERAL ANGIOPLASTY performed by Williams Matt MD at OR [facility] INTRO CATH DIALYSIS CIRCUIT W/TRANSCATH PLACEMENT IV STENT Right 12/02/2023 AV FISTULOGRAM STENT & PERIPHERAL ANGIOPLASTY performed by Micheal Urena MD at OR [facility] INTRO CATH DIALYSIS CIRCUIT W/TRANSCATH PLACEMENT IV STENT Right 06/01/2024 AV FISTULOGRAM STENT & PERIPHERAL ANGIOPLASTY performed by Beto Torrez MD at OR [facility] INTRO CATH DIALYSIS CIRCUIT W/TRANSLUM BALLOON ANGIOPLASTY Right 11/27/2021 AV FISTULOGRAM & PERIPHERAL ANGIOPLASTY performed by Sterling Cates MD at OR [facility] INTRO CATH DIALYSIS CIRCUIT W/TRANSLUM BALLOON ANGIOPLASTY Right 05/30/2022 AV FISTULOGRAM & PERIPHERAL ANGIOPLASTY performed by Beto Torrez MD at OR [facility] INTRO CATH DIALYSIS CIRCUIT W/TRANSLUM BALLOON ANGIOPLASTY Right 02/25/2023 AV FISTULOGRAM & PERIPHERAL ANGIOPLASTY performed by Jose Devine MD at OR [facility] INTRO CATH DIALYSIS CIRCUIT W/TRANSLUM BALLOON ANGIOPLASTY Right 03/30/2024 AV FISTULOGRAM & PERIPHERAL ANGIOPLASTY performed by Micheal Urena MD at OR [facility] IR DUPLEX ULTRASOUND (FOR INTERVENTIONAL RADIOLOGY USE ONLY) 03/02/2021 IR FISTULAGRAM AV DIALYSIS SHUNT IR VENOUS ACCESS NON-MEDIPORT 07/18/2022 LAPAROSCOPE PROCEDURE, LIVER N/A 04/16/2017 UNLISTED LAPAROSCOPIC PROCEDURE LIVER performed by Sukumar Polanco MD at [facility] LAPAROSCOPE PROCEDURE, LIVER N/A 01/28/2022 UNLISTED LAPAROSCOPIC PROCEDURE LIVER performed by Honorio Ashford MD at OR [facility] LAPAROSCOPIC GASTRIC BYPASS/JODY-EN-Y N/A 04/16/2017 LAPAROSCOPIC GASTRIC RESTRICTIVE BYPASS JODY EN Y performed by Sukumar Polanco MD at OR [facility] LAPAROSCOPY; CHOLECYSTECTOMY N/A 04/16/2017 LAPAROSCOPIC CHOLECYSTECTOMY performed by Sukumar Polanco MD at [facility] MISCELLANEOUS ORDER ([facility] ONLY) 05/2009 breast biopsy/ [...] performed by Sukumar Polanco MD at OR [facility] REPLACE,COMP,FLACO CENT ACC DEV N/A 03/22/2021 REPLACEMENT COMPLETE TUNNELED CENTRAL CATHETER NO PORT performed by Luis Fernando Hassan DO at OR [facility] REVISE STOMACH-BOWEL FUSION N/A 01/28/2022 REVISION GASTROJEJUNAL ANASTOMOSIS performed by Honorio Ashford MD at OR [facility] RMV MALG LSN TRK/ARM/LG >4.0CM Right 05/22/2021 EXCISION MALIGNANT TRUNK ARM LEG OVER 4CM performed by Diamond Rivero MD at OR [facility] RPR AA HERNIA 1ST 3-10 CM REDUCIBLE N/A 12/11/2022 INCISIONAL/VENTRAL/SPIGELIAN HERNIA REPAIR INITIAL 3-10 CM REDUCIBLE performed by Eros Dash MD at OR [facility] TOTAL ABD HYSTERECTOMY W/WO REMOVAL OF TUBE(S) Bilateral age 33 TOTAL HYSTERECTOMY TAHBSO (endometrial ca) TRANSECTION VAGUS NRV,TRUNCAL N/A 01/28/2022 LAPAROSCOPIC TRANSECTION VAGUS NERVES TRUNCAL performed by Honorio Ashford MD at OR [facility] UPPER GI ENDOSCOPY Review of patient's allergies [...] level: Not on file Occupational History Employer: [employer] Tobacco Use Smoking status: Never Passive exposure: Never Smokeless tobacco: Never Vaping Use Vaping status: Never Used Substance and Sexual Activity Alcohol use: No Drug use: No Sexual activity: Yes Partners: Male control/protection: Surgical Comment: hysterectomy Other Topics Concern Not on file Social History Narrative Employed: [employer] Social Needs Financial Resource Strain: Low Risk [...] Stability Do you currently live in a half-way or have no steady place to sleep [...] of less than 7.0% ([facility]) Other orders - Fluticasone Propionate 50 MCG/ACT [...] since she fell documented in this encounter Plan of Treatment Upcoming Encounters Date Type Department Care Team (Late st Contact Info) Description 06/24/2024 2:30 PM EST Appointment Radiology [facility], [address] [place] [address] 06/29/2024 10:00 AM EST Home Visit [facility] [address] [facility] [place] [address] Heidi Garcia RN [address] [facility] [place] [address] 07/01/2024 10:00 AM EST Office Visit Podiatry [facility] [address] [facility] [place] [address] Calli Avila DPM [address] [place] [address] 07/13/2024 10:00 AM EST Imaging Radiology [place] [facility] [address] [facility] [place] [address] 08/10/2024 8:00 AM EST Office Visit Gastroenterology, [facility] [address] [facility] [place] [address] Emi Queen CRNP [address] [place] [address] 08/10/2024 2:40 PM EST Office Visit Dermatology, [facility] [address] [facility] [place] [phone] Joanne Parks PA-C [address] [place] [address] [place] [address] 09/02/2024 10:00 AM EST Nurse Only Nutrition & Weight Management, [facility] [address] [facility] [place] [address] [facility], Nurse Gi Nutrition [facility] [address] [facility] [place] [address] Pending Results Name Type Priority Associated Diagnoses [...] this encounter Medical Devices Implanted Type Area Risk Management Internship Device Identifier Shelf Expiration Date Model / Serial / Lot Coil Vortex 35 Pltinm [id number] - [id number] Implanted:Qty: 1 on 11/27/2021 by Sterling Cates MD at OR [facility] Right: Upper Arm [employer] : NEURO INTR [id number] 08/15/2024 [id number] Coil Vortex 35 Pltinm [id number] - [id number] Implanted:Qty: 1 on 11/27/2021 by Sterling Cates MD at OR [facility] Right: Upper Arm [employer] : NEURO INTR [id number] 08/15/2024 [id number] Coil Vortex 35 Pltinm [id number] - [id number] Implanted:Qty: 1 on 11/27/2021 by Sterling Cates MD at OR [facility] Right: Upper Arm [employer] : NEURO INTR [id number] 08/15/2024 [id number] / / [id number] Coil Vortex 35 Pltinm [id number] - [id number] Implanted:Qty: 1 on 11/27/2021 by Sterling Cates MD at OR [facility] Right: Upper Arm [employer] : NEURO INTR [id number] 05/16/2024 [id number] / / [id number] Azur 35 Detachable 5mm 11cm - [id number] Implanted:Qty: 1 on 03/19/2022 by Jose Devine MD at OR [facility] Right: Wrist [employer] [id number] 10/18/2025 [id number] / / [id number] Azur 35 Detachable 5mm 11cm - [id number] Implanted:Qty: 1 on 03/19/2022 by Jose Devine MD at OR [facility] Right: Wrist [employer] [id number] 06/19/2026 [id number] / / [id number] Mesh Flat Sheet 10x14 [id number] - [id number] Implanted:Qty: 1 on 12/11/2022 by Eros Dash MD at OR [facility] N/A: Abdomen CR BARD : DAVOL [id number] 06/17/2027 [id number] / / [id number] documented as of this encounter Visit Diagnoses [...] pacemaker in situ SSS (sick sinus syndrome) ([facility]) Sinoatrial node dysfunction MINISTERIO on CPAP Obstructive sleep apnea (adult) (pediatric) Hypothyroidism (acquired) Unspecified hypothyroidism Type 2 diabetes mellitus 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 dialysis, with long-term current use of insulin ([facility]) S/P gastric bypass Bariatric surgery status ESRD (end stage renal disease) on dialysis ([facility]) End stage renal disease Recurrent ventral incisional hernia Incisional hernia without mention of obstruction or gangrene NO SHOW/FAILED TO KEEP APPOINTMENT- Primary Chronic diastolic heart failure ([facility])- Primary Chronic diastolic heart failure HTN, goal below 140/90 Unspecified essential hypertension Type 2 diabetes mellitus with hemoglobin A1c goal of less than 7.0% ([facility]) Hypothyroidism (acquired) Unspecified hypothyroidism Dyslipidemia, goal LDL below 100 Other and unspecified hyperlipidemia Major depressive disorder, single episode, moderate ([facility]) Major depressive disorder, single episode, moderate 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, with long-term current use of insulin ([facility]) Hyperparathyroidism, secondary renal ([facility]) Secondary hyperparathyroidism (of renal origin) End stage renal disease on dialysis ([facility]) End stage renal disease MINISTERIO on CPAP Obstructive sleep apnea (adult) (pediatric) Diarrhea, unspecified type Chronic sinusitis, unspecified location- Primary Risk and functional assessment Screening for unspecified condition Personal history of fall Injury of coccyx, initial encounter Allergic rhinitis, unspecified seasonality, unspecified trigger Type 2 diabetes mellitus with hemoglobin A1c goal of less than 7.0% ([facility]) Screening mammogram for breast cancer documented in this encounter Advance Directives Documents on File Type Date Recorded Patient Renal Dialysis Rn Expl anation POL 11/13/2020 POLST [facility]REEN SHAW [...] Agents on File Name Relationship Healthcare Agent [facility] Communication Zhen Finley Spouse Health Care Agent Care Teams Aeronautical Engineering Technologist Relationship Specialty Start Date End Date Luis Fernando Rojas MD [address] [place] [address] PCP - General Family Medicine 09/23/16 documented as of this encounter
--- OUTSIDE RECORDS SUMMARY | 2024-07-08 02:52 | External Medical Summary ---
Author Name Unknown Address Unknown Organization K01:[facility] - [address] [facility] [address] Laboratory Report Ordering Provider Test Date Status ARMAND MARCH 06/01/2024 16:00:00 Final Observation Date Value Abnormality Reference (Units ) Status Potassium, Whole Blood 06/01/2024 16:00:00 4.7 3.5-5.1 (mmol/L) Final Performing Location [facility] [address] [facility] [address]
--- OUTSIDE RECORDS SUMMARY | 2024-07-08 02:53 | External Medical Summary | Summary of Care ---
Author Name Unknown Organization [facility] [address] [place] [address] Phone [phone] Care Team Providers Care Solid Plasterer Name Role Phone Luis Fernando Rojas MD Primary Care Provider [phone] Encounter Details Date Type Department Care Team (Latest Contact Info) Description 05/28/2024 Medication Management [facility] [address] [place] [address] [facility] [address] [place] [address] Referred for management of medication therapy* Allergies Active Allergy Reactions Criticality Noted Date Comments Salvador Inhibitors Other (Please comment),Cough High HyperKalemia documented as of this encounter (statuses as of 06/01/2024) Medications Melatonin 10 MG Tablet Take 12 [...] Solostar 100 UNIT/ML Subcutaneous Solution Pen-injector (Basaglar Winnie)Indicati ons:Type 2 diabetes mellitus with hemoglobin A1c goal of less than 7.0% (HCC) Inject 16 units subcutaneously every day. 30 mL 4 10/28/19 24 Active Insulin Lispro (1 Unit Dial) 100 UNIT/ML Subcutaneous Solution Pen-injector (HumaLOG KwikPen)Indicati ons:Type 2 diabetes mellitus with hemoglobin A1c goal of less than 7.0% ([facility]) Inject 14 units with breakfast, 4 units [...] mouth in the morning. 03/23/20 24 Active BuddyBounce In Vitro Strip (Glucose Blood) To test blood sugar 4 times daily. 400 Strip 1 4 6:47 AM EDT 04/20/20 24 Active Superior Solar Solutionuch Delica Lancets 33G To test blood sugar 4 times daily. 400 Each 1 4 6:47 AM EDT 04/20/20 24 Active SnapRetailio w/Device Kit Use as directed. 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 Magallanes. Renae-W-Briana [...] 8:45 AM EDT): Gabapentin 600 mg at [facility] Assessment & Plan (05/07/2021 11:11 [...] Plan (03/23/2024 1:46 PM EDT): Continues on , updated medication rec as it said 40 documented as of this encounter (statuses as of 06/01/2024) Resolved Problems Problem Noted Date Diagnosed Date Resolved Date Other specified glaucoma 11/28/2022 Renal failure 01/31/2022 10/08/2022 Overview (01/31/2022): hemodialysis Marginal ulcer 01/31/2022 08/21/2022 Overview (08/21/2022): duplicate Post-op pain 01/29/2022 10/08/2022 Pre-operative examination 01/01/2022 [address] fistula malfunction 11/27/2021 11/28/2022 Acute posthemorrhagic anemia 05/07/2021 10/08/2022 Assessment & [...] Insulin long-term use 11/19/20182018 Overview (05/20/2019): Duplicate care home (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 insulin 11/19/2018 10/08/2022 [...] T-tube placement 04/16/2017 05/29/2017 [employer] Other*[id number] 04/13/2013 08/27/2016 Overview (04/13/2013): Study Title: Genomic Markers for Patients with Cardiovascular Disease Project # [id number] City Editor: Siena Laws MD [phone] Hypertensive heart disease 03/25/2013 1 07/29/2016 Neuropathy, [...] as of this encounter (statuses as of 06/01/2024) Immunizations Name Administration Dates Next Due COVID-19 mRNA, LNP-s, No Pre serve, 2-Dose Series (Moderna) 04/09/2021,09/23/2020,08/19/2020 COVID-19, LNP-s, No Preserve , Espinoza-sucrose, Ages 12+ (Pfizer) 01/08/2022 HEPATITIS B VACCINE, RECOMB, 20 MCG/ML, ADULT (HEPLISAV-B) 09/05/2021,05/09/2021,04/04/2021,02/18 Hepatitis B, 20+ yrs 09/16/2018,04/14/2018,03/1104/11/2018 Pneumococcal Conjugate Vacci ne, 20-valent ([id number]) 12/02/2023(Deferred: - pt states she's already received) [...] documented in this encounter Progress Notes * Josue Langston, [facility] - 06/01/2024 8:45 AM EST Candi Finley is a 63 year old female. Objective: Review of patient's allergies indicates: Allergen Reactions Salvador Inhibitors Other (Please comment) and Cough HyperKalemia Current Outpatient Medications - WARNING: List may be incomplete due to filtering Medication Sig Dispense Refill Atorvastatin Calcium 40 MG Oral Tablet (Lipitor) [...] DAY OR OTHER MEDICATIONS 90 Tablet 3 Calcium Acetate (Phos Binder) 667 MG [...] Take by mouth 1 Tablet daily . Aspirin 81 MG Oral Tablet Chewable Take 1 Tab by mouth at bedtime. with food. 90 Tab 3 Melatonin 10 MG Tablet Take 12 mg by mouth at bedtime. Orb HealthTouch DelMobibeam Lancets 33G To test blood sugar 4 times daily. 400 Each 1 OneTouch Verio In Vitro Strip (Glucose Blood) To test blood sugar 4 times daily. 400 Strip 1 Orb HealthTouch Verio w/Device Kit Use as directed. 1 Kit 0 Abrysvo 120 MCG/0.5ML Intramuscular Solution Reconstituted (RSV Pre-Fusion F A&B Vac Rcmb) Inject IM as directed 1 Each 0 BD Pen Needle Mini U/F 31G X 5 MM (Insulin Pen Needle) Use 4 times daily with insulin 400 Each 3 CPAP every night at bedtime. 12 FreeStyle Jennifer 2 Sensor Use as directed. Replace every 14 days (supplied through [employer]) 7 Each 3 Immunization History Administered Date(s) Administered COVID-19 mRNA, LNP-s, No Preserve, 2-Dose Series (Moderna) 08/19/2020, 09/23/2020, 04/09/2021 COVID-19, LNP-s, No Preserve, Espinoza-sucrose, Ages 12+ (Pfizer) 01/08/2022 HEPATITIS B VACCINE, RECOMB, 20 MCG/ML, ADULT (HEPLISAV-B) 03/08/2021, 04/04/2021, 05/09/2021, 09/05/2021 Hepatitis B, 20+ yrs 03/11/2018, 04/14/2018, 09/16/2018 Pneumococcal Polysaccharide PPV23 (Pneumovax) 07/28/2007, 09/18/2013, 08/30/2014 RSV Vac., Bivalent, Perfusion F, Pf,0.5 Ml (Abrysvo) 08/05/2023 Seasonal Influenza Vac., MDV, IM, 0.5 mL (Fluzone) 04/05/2010, 05/21/2011, 04/23/2012, 04/01/2013, 05/05/2014, 05/21/2015 Seasonal Influenza Virus Vaccine, Unspecified Formulation 04/05/2010, 05/21/2011, 04/23/2012, 04/01/2013, 05/05/2014, 03/21/2016, 04/23/2016, 05/29/2017, 04/14/2018, 04/15/2019, 04/12/2020, 04/20/2022 Seasonal Influenza, High Dose, Trivalent, PF, IM (Fluzone HD) 05/05/2024 Seasonal Influenza, PF, 6 M & above, IM , (FluLaval or Fluzone) 05/29/2017, 04/14/2018, 04/15/2019, 04/12/2020, 05/08/2021 Seasonal Influenza, Quadrivalent Hd (Fluzone Hd) 04/17/2023 Seasonal Influenza, Quadrivalent, No Preserve, IM 04/23/2016 TD, Preservative Free 04/12/2020 TDAP (age 10 and older)(Boostrix) 04/12/2020 TDAP, Age 7 and older, IM (Adacel) 04/05/2010 Zoster Vaccine Recombinant (Shingrix) 10/12/2020, 12/13/2020 TMR Interventions Incomplete Encounter MTPs No medication therapy recommendations to display Complete Encounter MTPs Referred for management of medication therapy 1 Current Medication: Citalopram Hydrobromide 20 MG Oral Tablet (CeleXA) Current Medication Sig: Take 1 Tablet by mouth in the morning. Rationale: Patient Education - Needs Education - Safety Recommendation: Self-Monitoring Status: No Longer Relevant Identified Date: 05/28/2024 Completed Date: 06/01/2024 Note: patient okay with dosing of citalopram. no further eval needed at this time 2 Rationale: Patient Education - Needs Education - Adherence Identified Date: 05/28/2024 Completed Date: 06/01/2024 Note: patient adherent to medication 3 Rationale: Patient Education - Needs Education - Safety Status: No Longer Relevant Identified Date: 05/28/2024 Completed Date: 06/01/2024 Note: patient no longer has opioid Assessment & Plan Indication, effectiveness, safety and convenience of her medications were reviewed today. The patient's medical conditions were assessed, evaluated, and deemed meeting goals of drug therapy, with thefollowing exceptions. Additional Notes: none Summary Time Spent: 31-45 min Supervising pharmacist who provided the service: Ana M Galloway Information Who was the recipient of the CMR service: beneficiary Language Template for the Patient Takeblair: [place] Islander I attest that I have reviewed and updated the patient's conditions, allergies, and medications to the best of my ability. Patient provided medication list gathered by: Tim Mcknight RPh 06/01/2024, 8:45 AM documented in this encounter Miscellaneous Notes * MTM To-Do-List - Josue Langston RPh - 06/01/2024 8:43 AM EST Images from the original note were not included. What we talked about: What I should do: The importance of taking your medication as prescribed Your medicine works best when taken as prescribed. It can be hard to remember to take daily medications. Consider making it a part of your daily routine. Pair taking your medication with something you do every day, like brushing your teeth or eating a meal. Consider setting daily alarms to help remind yourself when it is time to take your medicine. Using a pill box can also help you organize your medicines. Pill boxes allow you to fill each day slot with your daily medicine and help you track when your next dose is due. What we talked about: What I should do: Falls can be a serious concern for older adults, but with the right knowledge and precautions, theycan be prevented. By following these recommendations, you can maintain your independence and enjoy a higher quality of life. Keep your living space clutter-free by tidying up any loose items, electrical cords, or rugs that could cause you to trip and fall Ensure all areas of your home are well-lit, especially hallways, staircases, and entrances. Use nightlights to help navigate during nighttime. Use non-slip mats or double-sided tape to prevent rugs and carpets from sliding or bunching up, which can lead to slips and falls. Place handrails on both sides of staircases and grab bars in bathrooms near toilets, showers, and bathtubs for added stability and support. Engage in exercises that focus on strength, balance, and flexibility. Simple activities like walking, nelda chi, or chair exercises can help improve your overall stability. Before starting any exercise program, consult your healthcare provider to ensure it is suitable foryour current health condition. If needed, use walking aids like canes or walkers to provide additional support and stability whilemoving Wear well-fitting shoes with good arch support and a non-slip sole. Avoid high heels, flip-flops, and shoes with worn-out soles Slow down and be mindful of your movements. Rushing or sudden changes in position can lead to imbalance What we talked about: What I should do: Insulin Clean and rotate injection sites as well as use new needles with each new shot. Prime the needle with 2 units before use if using an insulin pen instead of syringe. If you are injecting your insulin, it will work to lower your blood sugar whether or not you ate, which can increase the risk of experiencing low blood sugar. Please be aware of your individual signs/symptoms of low blood sugar and know how to treat low blood sugar for emergencies. When your blood sugar is too high or too low your body could experience symptoms. Signs include: dizziness, shakiness, feeling hungry, feeling thirsty, sweatiness, nervousness, irritability, weakness, sleepiness, blurred vision, increased urination, lack of coordination. If you notice any of these signs, it is a great time to check your blood sugar. When your blood sugar is 70 mg/dl or below, it is important to increase blood sugar immediately. Low blood sugar could lead to coma and even . When you notice your sugar is low, eat a small snack containing sugar. Some examples include: drink a small amount of orange juice (4 ounces), 4 ouncesof regular soda or milk, taking glucose tablets (15 grams), or eat 1 tablespoonful of sugar. Wait 15 minutes, and recheck your blood sugar. If your sugar is still low, try to increase it again by eating a small amount of sugar. Recheck your blood sugar in 15 minutes. If after two attempts to raise it, and your blood sugar is still low-call your doctor immediately. What we talked about: What I should do: Diabetic foot health When you have diabetes, it could put you at an increased risk for foot infections. Checking your feet at home is a great way to prevent foot infections. Check your feet daily forcuts, scrapes, blisters, sores and signs of infection. Signs of infection could include redness, swelling or skin feeling warm to touch. If you cannot see the bottom of your feet, use a mirror or asksomeone for help. It is also important to keep your feet clean by washing them every day. Always wear socks and shoes. Never go barefoot. Lastly, keep your feet elevated while sitting and don't cross your legs for a long period of time. While your feet are elevated wiggle your toes and move your ankles up and down to keep the blood flowing in your feet. Have your feet checked at your doctor's appointments or at least once a year by a doctor. * MTM Personal Medication List - Josue Langston RPh - 06/01/2024 8:41 AM EST Medication How I take it Why I use it Prescriber Acetaminophen 325 MG Oral Tablet (Tylenol) Take 2 Tablets by mouth every 6 hours as needed. Pain Self amLODIPine Besylate 5 MG Oral Tablet (Norvasc) TAKE ONE TABLET BY MOUTH EVERY DAY IN THE MORNING High blood pressure Luis Fernando Rojas MD Aspirin 81 MG Oral Tablet Chewable Take 1 Tab by mouth at bedtime. with food. Heart health Luis Fernando Rojas MD Atorvastatin Calcium 40 MG Oral Tablet (Lipitor) Take 0.5 Tablets by mouth in the morning. High cholesterol Marco Antonio Kirkland MD Biotin 1000 MCG Oral Tablet Take 1 Tablet by mouth in the morning and 1 Tablet before bedtime. General health Self Calcium Acetate (Phos Binder) 667 MG Oral Capsule (Phoslo) TAKE THREE CAPSULES BY MOUTH WITH EACH MEAL AND TWO CAPSULES WITH SNACKS General health Sameer Hassan MD Calcium Citrate-Vitamin D 315-5 MG-MCG Oral Tablet Take 1 Tablet by mouth in the morning. 600 mg ofcalcium twice daily + 20 mcg of vitamin d twice daily. General health Self Carvedilol 12.5 MG Oral Tablet (Coreg) Take 1 Tablet by mouth in the morning and 1 Tablet before bedtime. High blood pressure Luis Fernando Rojas MD Childrens Chewable Vitamins Oral Tablet Chewable Take 1 Tablet by mouth in the morning and 1 Tabletbefore bedtime. General health Self Citalopram Hydrobromide 20 MG Oral Tablet (CeleXA) Take 1 Tablet by mouth in the morning. Mood Luis Fernando Rojas MD Diclofenac Sodium 1 % External Gel (Voltaren) Apply topically to affected area 3 times a day as needed for Pain. Pain Edison Corcoran PA-C Gabapentin 300 MG Oral Capsule (Neurontin) Take 1 Capsule by mouth at bedtime. Follow up with your primary care provider for further management. Nerve pain Luis Fernando Rojas MD Insulin Glargine Solostar 100 UNIT/ML Subcutaneous Solution Pen-injector (Basaglar KwikPen) Inject 16 units subcutaneously every day. Diabetes Luis Fernando Rojas MD Insulin Lispro (1 Unit Dial) 100 UNIT/ML Subcutaneous Solution Pen-injector (HumaLOG KwikPen) Inject 14 units with breakfast, 4 units with lunch and 16 units with supper + CF 1:25 over 150. Max dose of 45 units per day Diabetes Luis Fernando Rojas MD Levothyroxine Sodium 100 MCG Oral Tablet (Levoxyl) TAKE 1 TABLET BY MOUTH DAILY AT LEAST 30 MINUTESPRIOR TO FIRST MEAL OF THE DAY OR OTHER MEDICATIONS Thyroid Luis Fernando Rojas MD Melatonin 10 MG Tablet Take 12 mg by mouth at bedtime. Sleep Luis Fernando Rojas MD Nitroglycerin 0.4 MG Sublingual Tablet Sublingual (Nitrostat) Place under the tongue 1 Tablet as needed for Pain, Chest. May repeat 3 times. If chest pain continues, call 911. Chest pain Luis Fernando Rojas MD Omeprazole 20 MG Oral Capsule Delayed Release (PriLOSEC) Take 1 Capsule by mouth in the morning. Acid reflux Luis Fernando Rojas MD ProRenal + D Oral Tablet Take by mouth 1 Tablet daily . General health LUCRECIA Eckert Vitamin D 125 MCG (5000 UT) Oral Capsule Take 1 Capsule by mouth every morning. General health Self documented in this encounter Plan of Treatment Upcoming Encounters Date Type Department Care Team (Late st Contact Info) Description 06/01/2024 10:00 AM EST Home Visit [facility] [address] [facility] [place] [address] Heidi Garcia, RN [address] [place] [address] 06/02/2024 9:20 AM EST Office Visit Nutrition & Weight Management, [facility] [address] [facility] [place] [address] Cleo Fonseca PA-C [address] [facility] [place] [address] 06/03/2024 8:15 AM EST Cardiac Studies Cardiac Studies, [facility] [address] [facility] [place] [address] 06/24/2024 2:30 PM EST Appointment Radiology [address] [place] [address], [place] [address] 07/01/2024 10:00 AM EST Office Visit Podiatry [facility] [address] [facility] [place] [address] Calli Avila DPM [address] [facility] [place] [address] 07/13/2024 10:00 AM EST Imaging Radiology [address] [facility] [place] [address] 08/10/2024 8:00 AM EST Office Visit Gastroenterology, [facility] [address] [facility] [place] [address] Emi Queen CRNP [address] [place] [address] Scheduled Procedures Name Priority Associated Diagnoses Date/Ti me AV FISTULOGRAM STENT & PERIPHERAL ANGIOPLASTY ESRD (end stage renal disease) on dialysis (HCC) 06/01/2024 3:19 PM EST COLONOSCOPY FLEXIBLE PROXIMAL DIAGNOSTIC Recall History of colonic polyps Health [...] this encounter Medical Devices Implanted Type Area Vault Service Mechanic Device Identifier Shelf Expiration Date Model / Serial / Lot Coil Vortex 35 Pltinm [id number] - [id number] Implanted:Qty: 1 on 11/27/2021 by Sterling Cates MD at [place] [facility] Right: Upper Arm [employer] : NEURO INTR [id number] 08/15/2024 [id number] / [id number] Coil Vortex 35 Pltinm [id number] - [id number] Implanted:Qty: 1 on 11/27/2021 by Sterling Cates MD at OR [facility] Right: Upper Arm [employer] : NEURO INTR [id number] 08/15/2024 [id number] / / [id number] Coil Vortex 35 Pltinm [id number] - [id number] Implanted:Qty: 1 on 11/27/2021 by Sterling Cates MD at OR [facility] Right: Upper Arm [employer] : NEURO INTR [id number] 08/15/2024 [id number] / / [id number] Coil Vortex 35 Pltinm [id number] - [id number] Implanted:Qty: 1 on 11/27/2021 by Sterling Cates MD at OR [facility] Right: Upper Arm [employer] : NEURO INTR [id number] 05/16/2024 [id number] / [id number] Azur 35 Detachable 5mm 11cm - [id number] Implanted:Qty: 1 on 03/19/2022 by Jose Devine MD at OR [facility] Right: Wrist Conversion [employer] [id number] 10/18/2025 [id number] / / [id number] Azur 35 Detachable 5mm 11cm - [id number] Implanted:Qty: 1 on 03/19/2022 by Jose Devine MD at OR [facility] Right: Wrist [employer] [id number] 06/19/2026 [id number] / / [id number] Mesh Flat Sheet 10x14 [id number] - [id number] Implanted:Qty: 1 on 12/11/2022 by Eros Dash MD at OR [facility] N/A: Abdomen CR BARD : DAVOL [id number] 06/17/2027 [id number] / / [id number] documented as of this encounter Visit Diagnoses [...] sleep apnea (adult) (pediatric) Diarrhea, unspecified type Referred for management of medication therapy- Primary Encounter for long-term (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 other medications Screening mammogram for breast cancer documented in this encounter Advance Directives Documents on File Type Date Recorded Patient Strap Buckler Machine Expl anation POLST 11/13/2020 POLST FLAKITOA VALERIA [...] Finley Spouse Health Care Agent Care Teams Solid Plasterer Relationship Specialty Start Date End Date Luis Fernando Rojas MD [address] [facility] [place] [address] PCP - General Family Medicine 09/23/16 documented as of this encounter
--- OUTSIDE RECORDS SUMMARY | 2024-07-08 02:53 | External Medical Summary | Summary of Care ---
Author Name Unknown Organization [facility] Address [address] [place] [address] Phone [phone] Care Team Providers Care Senior Data Quality Analyst Name Role Phone Luis Fernando Rojas MD Primary Care Provider [phone] Encounter Details Date Type Department Care Team (Late st Contact Info) Description 02/26/2024 Telephone [facility] [address] [place] [address] Luis Fernando Rojas MD [address] [place] [address] Allergies Active Allergy Reactions Criticality Noted Date Comments Salvador Inhibitors Other (Please comment),Cough High HyperKalemia documented as of this encounter (statuses as of 05/27/2024) Medications Medication Sig Dispensed Refills Start Date [...] Information Patient not taking.Informant: Patient, Reported on 03/30/2024 Acetaminophen 325 MG Oral Tablet (Tylenol) Take [...] with insulin 400 Each 3 05/01/2023 Active Calcium Acetate (Phos Binder) 667 MG Oral Capsule (Phoslo) TAKE THREE CAPSULES BY MOUTH WITH EACH MEAL AND TWO CAPSULES WITH SNACKS 1300 Capsule 3 05/01/2023 Active Levothyroxine Sodium 100 MCG Oral Tablet [...] further management. 90 Capsule 3 09/10/2023 Active Insulin Glargine Solostar 100 UNIT/ML Subcutaneous [...] as needed for Pain. 100 g 2 02/17/2024 Active Citalopram Hydrobromide 20 MG Oral Tablet (CeleXA) Take 1 Tablet by mouth in the morning. Active Hospital, Clinic, or Other Facility Administered Medication Ordered Dose Route Frequency Start Date End Date Status vitamin b-12 (Cyanocobalamin) inj 1,000 mcgIndications:S/P gastric bypass 1000 mcg IM [id number] 10/15/2022 07/19/2025 Active vitamin b-12 (Cyanocobalamin) inj 1,000 mcgIndications:Morbid obesity with BMI of 40.0-44.9, adult (HCC),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 [id number] 10/17/2023 12/11/19 25 Active documented as of this encounter (statuses as of 05/27/2024) Active Problems Problem Noted Date Diagnosed Date Major depressive disorder, single episode, moder ate 03/23/2024 Type 2 diabetes mellitus wit h right eye affected by proliferative 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 edema, with long-term current use of insulin 03/23/2024 Recurrent ventral incisional hernia 12/11/2022 Last Assessment [...] 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 10/15/2022 [facility]EARCH OTHER*[id number] 01/01/2022 S/P gastric bypass 01/01/2022 Marginal ulcer [...] on dialysis 03/14/2021 Last Assessment & Plan: Compliant with dialysis Has fistulogram a week today 03/30 as having some issues at HD sessions with current fistula Presence of cardiac pacemaker 12/13/2020 Type 2 [...] on CPAP 05/21/2018 Last Assessment & Plan: Wears CPAP nightly, no issues Stable proliferative diabeti c retinopathy of both [...] sized speculum. Chronic diastolic heart failure 11/03/2017 Last Assessment & Plan: No issues with volume overload. Not on diuretics gets volume taken off at HD Friday Type 2 diabetes mellitus wit h diabetic polyneuropathy, with long-term current use of insulin 05/29/2017 Last Assessment & Plan: Gabapentin 600 mg at [facility] Mitral annular calcification 04/28/2017 Major depressive disorder, r ecurrent episode, moderate with seasonal pattern 04/03/2015 Last Assessment & Plan: Tells me mood better past few weeks continues on citalopram without issue. HTN, goal below 140/90 04/11/2014 Last Assessment & Plan: Well managed by PCP continues on hydralazine 100 three times daily and Coreg as well as amlodipine Vitamin D deficiency 11/25/2013 Rosacea 02/23/2013 Hypothyroidism (acquired) 02/23/2013 Last Assessment & Plan: Continues on 100 levothyroxine each a.m., TSH reviewed no need for med adjustment Type 2 diabetes mellitus wit h hemoglobin A1c goal of less than 7.0% 05/21/2011 Overview: ICD-10 update of inactive term Last Assessment & Plan: Continues on insulin has been diabetic for approximately 30 years and tells me she is proud her A1c is under 7. HX-MALIG SKIN 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: 2009 L calf MIS 03/2021 R upper arm MM at least 1.1 mm, SLNB negative (0/2), IB Dyslipidemia, goal LDL below 100 Overview: primarily high triglycerides Last Assessment & Plan: Continues on 20 of atorvastatin, updated medication rec as it said 40 documented as of this encounter (statuses as of 05/27/2024) Resolved Problems Problem Noted Date Diagnosed Date Resolved Date Other specified glaucoma 11/28/2022 Renal failure 01/31/2022 10/08/2022 Overview: hemodialysis Marginal [...] 10/08/2022 Insulin long-term use 11/19/20182018 Overview: Duplicate snf (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 insulin 11/19/2018 10/08/2022 Morbid [...] T-tube placement 04/16/2017 05/29/2017 [employer] Other*[id number] 04/13/2013 08/27/2016 Overview: Study Title: Genomic Markers for Patients with Cardiovascular Disease Project # [id number] Forms Builder: Siena Laws MD [phone] Hypertensive heart disease 03/25/2013 1 07/29/2016 Neuropathy, [...] as of this encounter (statuses as of 05/27/2024) Immunizations Name Administration Dates Next Due COVID-19 mRNA, LNP-s, No Pre serve, 2-Dose Series (Moderna) 04/09/2021,09/23/2020,08/19/2020 COVID-19, LNP-s, No Preserve , Espinoza-sucrose, Ages 12+ (Pfizer) 01/08/2022 HEPATITIS B VACCINE, RECOMB, 20 MCG/ML, ADULT (HEPLISAV-B) 09/05/2021,05/09/2021,04/04/2021,02/18 Hepatitis B, 20+ yrs 09/16/2018,04/14/2018,03/1104/11/2018 Pneumococcal Conjugate Vacci ne, 20-valent ([id number]) 12/02/2023(Deferred: - pt states she's already received) [...] No 08/14/2023 Does the household have a [facility] income? (Household - for ages [...] ages 0-17 years) Not on file 08/14/2023 Sex and Gender Information Value Date [...] encounter Miscellaneous Notes * Telephone Encounter - Stephie Wilcox LPN - 02/26/2024 2:45 PM EDT Received a letter from [facility] that states: Patient declined PT visit for this week. Patient request PT visit next week as planned as long as orthopedic physician agrees. Patient following p with ortho 02/26/2024 documented in this encounter Plan of Treatment Upcoming Encounters Date Type Department Care Team (Late st Contact Info) Description 06/01/2024 10:00 AM EST Home Visit [facility] at [facility] [address] [place] [address] Heidi Garcia RN [address] [place] [address] 06/01/2024 3:19 PM EST Hospital Encounter [place] [facility] OPER[place] ROOM [facility] [address] [place] [address] Beto Torrez MD [address] [place] [address] 06/01/2024 3:19 PM EST - 06/01/2024 4:50 PM EST Surgery OR [facility] OPERATING ROOM [facility] [address] [place] [phone] Beto Torrez MD [address] [place], [place] [phone] AV FISTULOGRAM STENT & PERIPHERAL ANGIOPLASTY 06/02/2024 9:20 AM EST Office Visit Nutrition & Weight Management, [facility] [address] [place] [address] Cleo Fonseca PA-C [address] [facility] [place] [address] 06/03/2024 8:15 AM EST Cardiac Studies Cardiac Studies, [address] [place] [address] 06/24/2024 2:30 PM EST Appointment Radiology [place], [address], [place] [address] 07/01/2024 10:00 AM EST Office Visit Podiatry [facility] 132 [facility] [place] [address] Calli Avila, DAIANA 132 [facility] [place] [address] 07/13/2024 10:00 AM EST Imaging Radiology [facility]st [facility], [place] 132 [facility] [place] [address] 08/10/2024 8:00 AM EST Office Visit Gastroenterology, [facility] [address] [facility] [place] [address] Emi Queen CRNP [address] [facility] [place] [address] Scheduled Procedures Name Priority Associated Diagnoses Date/Ti [...] this encounter Medical Devices Implanted Type Area Thread Grinder Tool Device Identifier Shelf Expiration Date Model / Serial / Lot Coil Vortex 35 Pltinm [id number] - [id number] Implanted:Qty: 1 on 11/27/2021 by Sterling Cates MD at [place] [facility] Right: Upper Arm [employer] : NEURO INTR [id number] 08/15/2024 [id number] / / [id number] Coil Vortex 35 Pltinm [id number] - [id number] Implanted:Qty: 1 on 11/27/2021 by Sterling Cates MD at OR [facility] Right: Upper Arm [employer] : NEURO INTR [id number] 08/15/2024 [id number] / / [id number] Coil Vortex 35 Pltinm [id number] - [id number] Implanted:Qty: 1 on 11/27/2021 by Sterling Cates MD at OR [facility] Right: Upper Arm [employer] : NEURO INTR [id number] 08/15/2024 [id number] / / [id number] Coil Vortex 35 Pltinm [id number] - [id number] Implanted:Qty: 1 on 11/27/2021 by Sterling Cates MD at OR [facility] Right: Upper Arm [employer] : NEURO INTR [id number] 05/16/2024 [id number] / / [id number] Azur 35 Detachable 5mm 11cm - [id number] Implanted:Qty: 1 on 03/19/2022 by Jose Devine MD at OR [facility] Right: Wrist [employer] [id number] 10/18/2025 [id number] / / [id number] Azur 35 Detachable 5mm 11cm - [id number] Implanted:Qty: 1 on 03/19/2022 by Jose Devine MD at OR [facility] Right: Wrist [employer] [id number] 06/19/2026 [id number] / / [id number] Mesh Flat Sheet 10x14 [id number] - [id number] Implanted:Qty: 1 on 12/11/2022 by Eros Dash MD at OR [facility] N/A: Abdomen CR BARD : DAVOL [id number] 06/17/2027 [id number] / / [id number] documented as of this encounter Additional Health Concerns Infection Onset Date Last Indicated Resolved Time Gastrointestinal Rule-Out 03/26/2024 03/26/2024 7:06 PM EDT C. difficile Rule-Out 03/26/2024 03/26/20242023 2:10 PM EDT documented as of this encounter Advance Directives Documents on File Type Date Recorded Patient It Quality Analyst Saranya FIGUEROA 11/13/2020 POLST NASREEN SHAW ORDERS [...] Finley Spouse Health Care Agent Care Teams Senior Data Quality Analyst Relationship Specialty Start Date End Date Luis Fernando Rojas MD [address] [facility] [place] [address] PCP - General Family Medicine 09/23/16 documented as of this encounter
--- OUTSIDE RECORDS SUMMARY | 2024-07-08 02:53 | External Medical Summary | Summary of Care ---
Author Name Unknown Organization [facility] Address [address] [place] [address] Phone [phone] Care Team Providers Care Tactical Debriefer Officer Name Role Phone Luis Fernando Rojas MD Primary Care Provider [phone] Encounter Details Date Type Department Care Team (Late st Contact Info) Description 05/28/2024 Orders Only PATIENT PORTAL DO NOT DELETE THIS DEPT USED BY [place] [id number] Allergies Active Allergy Reactions Criticality Noted Date Comments Salvador Inhibitors Other (Please comment),Cough High HyperKalemia documented as of this encounter (statuses as of 05/28/2024) Medications Melatonin 10 MG Tablet Take 12 [...] directed. Replace every 14 days (supplied through [facility]) 7 Each 3 05/17/20 21 Active CPAP every night at bedtime. 12 Active ProRenal + D Oral Tablet Take by mouth 1 Tablet daily . 02/29/20 22 Active Vitamin D 25 MCG [...] 911. 25 Tablet 11 04/26/20 22 Active Additional Information Patient not taking.Informant: Patient, [...] goal of less than 7.0% ([facility]) Inject 14 units with breakfast, 4 units [...] mouth in the morning. 03/23/20 24 Active Turbulenz In Vitro Strip (Glucose Blood) To test blood sugar 4 times daily. 400 Strip 1 4 6:47 AM EDT 04/20/20 24 Active Sopheon Delica Lancets 33G To test blood sugar 4 times daily. 400 Each 1 4 6:47 AM EDT 04/20/20 24 Active Total-traxio w/Device Kit Use as directed. 1 Kit 4 6:47 AM EDT 04/20/20 24 Active Hospital, Clinic, or Other Facility Administered Medication Ordered Dose Route Frequency Start Date End Date Status vitamin b-12 (Cyanocobalamin) inj 1,000 mcgIndications:S/P gastric bypass 1000 mcg IM [id number] 10/15/2022 07/19/2025 Active vitamin b-12 (Cyanocobalamin) inj 1,000 mcgIndications:Morbid obesity with BMI of 40.0-44.9, adult (HCC),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 [id number] 10/17/2023 12/11/19 25 Active documented as of this encounter (statuses as of 05/28/2024) Active Problems Problem Noted Date Diagnosed Date [...] 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 10/15/2022 [facility] RESEARCH OTHER*[id number] 01/01/2022 S/P gastric bypass 01/01/2022 Marginal ulcer [...] 8:45 AM EDT): Gabapentin 600 mg at [facility] Assessment & Plan (05/07/2021 11:11 AM [...] as of this encounter (statuses as of 05/28/2024) Resolved Problems Problem Noted Date Diagnosed Date [...] Insulin long-term use 11/19/20182018 Overview (05/20/2019): Duplicate long-term (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 insulin 11/19/2018 [...] pain 04/16/2017 05/29/2017 History of knee surgery 04/16/20170 03/2017 History of cardiac catheterization 04/16/2017 05/29/2017 History of biliary T-tube placement 04/16/2017 05/29/2017 [employer] Other*[id number] 04/13/2013 08/27/2016 Overview (04/13/2013): Study Title: Genomic Markers for Patients with Cardiovascular Disease Project # [id number] Estate Manager: Siena Laws MD [phone] Hypertensive heart disease 03/25/2013 1 07/29/2016 Neuropathy, [...] as of this encounter (statuses as of 05/28/2024) Immunizations Name Administration Dates Next Due COVID-19 mRNA, LNP-s, No Pre serve, 2-Dose Series (Moderna) 04/09/2021,09/23/2020,08/19/2020 COVID-19, LNP-s, No Preserve , Espinoza-sucrose, Ages 12+ (Pfizer) 01/08/2022 HEPATITIS B VACCINE, RECOMB, 20 MCG/ML, ADULT (HEPLISAV-B) 09/05/2021,05/09/2021,04/04/2021,02/18 Hepatitis B, 20+ yrs 09/16/2018,04/14/2018,03/1104/11/2018 Pneumococcal Conjugate Vacci ne, 20-valent ([id number]) 12/02/2023(Deferred: - pt states she's already received) [...] Description 06/01/2024 10:00 AM EST [facility] [address] [place] [address] Heidi Garcia RN [address] [place] [address] 06/01/2024 3:19 PM EST Hospital Encounter [place] [facility] [place]PER[place] [facility] [place] [address] [place] [facility] [phone] Beto Torrez MD [address] [place] [facility] [address] 06/01/2024 3:19 PM EST - 06/01/2024 4:50 PM EST Surgery OR [facility] [place] OPER[place] ROOM [facility] [place] [address] [facility] [place] [phone] Beto Torrez MD [address] [facility], [place] [id number] AV FISTULOGRAM STENT & PERIPHERAL ANGIOPLASTY 06/02/2024 9:20 AM EST Office Visit Nutrition & Weight Management, [facility] 132 [facility] [place] [address] Cleo Fonseca PA-C [address] [place] [address] 06/03/2024 8:15 AM EST Cardiac Studies Cardiac Studies, [facility] 132 [facility] [place] [address] 06/24/2024 2:30 PM EST Appointment Radiology [address] [place] [address], [place] [address] 07/01/2024 10:00 AM EST Office Visit Podiatry [facility] [address] [facility] [place] [address] Calli Avila DPM [address] [place] [address] 07/13/2024 10:00 AM EST Imaging Radiology [address], [place] [address] [place] [address] 08/10/2024 8:00 AM EST Office Visit Gastroenterology, [facility] [address] [place] [address] Emi Queen CRNP [address] [place] [address] Scheduled Procedures Name Priority Associated Diagnoses Date/Ti [...] this encounter Medical Devices Implanted Type Area Pricing Lead Device Identifier Shelf Expiration Date Model / Serial / Lot Coil Vortex 35 Pltinm [id number] - [id number] Implanted:Qty: 1 on 11/27/2021 by Sterling Cates MD at [place] [facility] [place] Right: Upper Arm [employer] : NEURO INTR [id number] 08/15/2024 [id number] Coil Vortex 35 Pltinm [id number] - [id number] Implanted:Qty: 1 on 11/27/2021 by Sterling Cates MD at OR [facility] [place] Right: Upper Arm [employer] : NEURO INTR [id number] 08/15/2024 [id number] Coil Vortex 35 Pltinm [id number] - [id number] Implanted:Qty: 1 on 11/27/2021 by Sterling Cates MD at OR [facility] [place] Right: Upper Arm [employer] : NEURO INTR [id number] 08/15/2024 [id number] Coil Vortex 35 Pltinm [id number] - [id number] Implanted:Qty: 1 on 11/27/2021 by Sterling Cates MD at OR [facility] [place] Right: Upper Arm [employer] : NEURO INTR [id number] 05/16/2024 [id number] / [id number] Azur 35 Detachable 5mm 11cm - [id number] Implanted:Qty: 1 on 03/19/2022 by Jose Devine MD at [place] [facility] [place] Right: Wrist [employer] [id number] 10/18/2025 [id number] / / [id number] Azur 35 Detachable 5mm 11cm - [id number] Implanted:Qty: 1 on 03/19/2022 by Jose Devine MD at OR [facility] [place] Right: Wrist [employer] [id number] 06/19/2026 [id number] / / [id number] Mesh Flat Sheet 10x14 [id number] - [id number] Implanted:Qty: 1 on 12/11/2022 by Eros Dash MD at [place] [facility] [place] N/A: Abdomen CR BARD : DAVOL [id number] 06/17/2027 [id number] / / [id number] documented as of this encounter Advance Directives Documents on File Type Date Recorded Patient Retirement Sales Consultant Expl anation POLST 11/13/2020 POLST [...] Finley Spouse Health Care Agent Care Teams Tactical Debriefer Officer Relationship Specialty Start Date End Date Luis Fernando Rojas MD [address] [place] [address] PCP - General Family Medicine 09/23/16 documented as of this encounter
--- OUTSIDE RECORDS SUMMARY | 2024-07-08 02:54 | External Medical Summary | Summary of Care ---
Author Name Unknown Organization [facility] Address [address] [place] [address] Phone [phone] Care Team Providers Care Television Technician Name Role Phone Luis Fernando Rojas MD Primary Care Provider [phone] Reason for Visit * Reason Onset Date Comments TRIAGE 05/25/2024 Encounter Details Date Type Department Care Team (Late st Contact Info) Description 05/25/2024 Telephone Vascular Surg [facility] [address], [place] [id number] Services, Scheduling [address] [place] [address] TRIAGE Allergies Active Allergy Reactions Criticality Noted Date Comments Salvador Inhibitors Other (Please comment),Cough High HyperKalemia documented as of this encounter (statuses as of 05/26/2024) Medications Medication Sig Dispensed Refills Start Date [...] goal of less than 7.0% ([facility]) Use 4 times daily with insulin [...] less than 7.0% ([facility]) Inject 16 units subcutaneously every day. 30 mL 4 10/28/2023 Active Insulin Lispro (1 Unit Dial) 100 UNIT/ML Subcutaneous Solution Pen-injector (HumaLOG KwikPen)Indication s:Type 2 diabetes mellitus with hemoglobin A1c goal of less than 7.0% ([facility]) Inject 14 units with breakfast, 4 [...] DAY IN THE MORNING 90 Tablet 1 03/17/2024 Active Omeprazole 20 MG Oral Capsule Delayed Release (PriLOSEC)Indicati ons:Gastroesophage al reflux disease without esophagitis Take 1 Capsule by mouth in the morning. 100 Capsule 3 03/18/2024 Active Carvedilol 12.5 MG Oral Tablet (Coreg)Indications :HTN, goal below 140/90 Take 1 Tablet by mouth in the morning and 1 Tablet before bedtime. 180 Tablet 4 03/20/2024 Active Atorvastatin Calcium 40 MG Oral Tablet (Lipitor)Indicatio ns:Dyslipidemia, goal LDL below 100 Take 0.5 Tablets by mouth in the morning. 03/23/2024 Active [employer] Verio In Vitro Strip (Glucose Blood) To test blood sugar 4 times daily. 400 Strip 1 04/20/2024 Active [employer] Delica Lancets 33G To test blood sugar 4 times daily. 400 Each 1 04/20/2024 Active Powered by Peakio w/Device Kit Use as directed. 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 [id number] 10/17/2023 12/11/19 25 Active documented as of this encounter (statuses as of 05/26/2024) Active Problems Problem Noted Date Diagnosed Date [...] 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 10/15/2022 [facility] OTHER*[id number] 01/01/2022 S/P gastric bypass 01/01/2022 Marginal ulcer [...] as of this encounter (statuses as of 05/26/2024) Resolved Problems Problem Noted Date Diagnosed Date [...] Insulin long-term use 11/19/20182018 Overview: Duplicate terminal make up operator (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 insulin 11/19/2018 10/08/2022 [...] T-tube placement 04/16/2017 05/29/2017 [employer] Other*[id number] 04/13/2013 08/27/2016 Overview: Study Title: Genomic Markers for Patients with Cardiovascular Disease Project # [id number] Dietist: Siena Laws MD [phone] Hypertensive heart disease 03/25/2013 1 07/29/2016 Neuropathy, [...] as of this encounter (statuses as of 05/26/2024) Immunizations Name Administration Dates Next Due COVID-19 mRNA, LNP-s, No Pre serve, 2-Dose Series (Moderna) 04/09/2021,09/23/2020,08/19/2020 COVID-19, LNP-s, No Preserve , Espinoza-sucrose, Ages 12+ (Pfizer) 01/08/2022 HEPATITIS B VACCINE, RECOMB, 20 MCG/ML, ADULT (HEPLISAV-B) 09/05/2021,05/09/2021,04/04/2021,02/18 Hepatitis B, 20+ yrs 09/16/2018,04/14/2018,03/1104/11/2018 Pneumococcal Conjugate Vacci ne, 20-valent (Irrexpz28) 12/02/2023(Deferred: - pt states she's already received) [...] Telephone Encounter - Matteo Salcido OSA - 05/26/2024 2:59 PM EST Called and left a message for patient to reschedule her fistulagram for Friday 06/01, due to Dr. Torrez having an emergent case added on. I had the case moved. * Telephone Encounter - Matteo Salcido OSA - 05/25/2024 12:03 PM EST Called and spoke to patient and scheduled her for a fistulagram with Dr. Torrez on 05/27 Case booked Pre-op instructions given * Telephone Encounter - Abundio Bird CRNP - 05/25/2024 10:08 AM EST Please schedule fistulagram. NPO after MN. Morning meds with a SIP of water EXCEPT humalog insulin. * Telephone Encounter - Candi Torres LPN - 05/25/2024 9:53 AM EST Last intervention was with Dr. Urena on 03/30/24 Operation: Right arm fistulagram with venous angioplasty Findings: The right wrist RCAVF was patent with recurrent venous stenosis in the upper forearm cephalic vein. There was no inflow stenosis and no central venous stenosis. We treated the recurrent forearm cephalic vein stenosis with balloon angioplasty with a nice result. OK to keep using fistula for hemodialysis. I called and spoke with Hina at [phone] and she states they called to set up the fistulagram but they were told they need a referral or she could not be seen. She states that she is having decreased access flow and decreased clearances. Pt gets dialysis on M/W/F Secretaries, Please set patient up for a fistulagram. Candi Torres LPN 05/25/2024 10:05 AM * Telephone Encounter - Saida Dacosta OSA - 05/25/2024 9:46 AM EST Tracey from IR received an order for IR Venous Fistulogram however, this patient is a vascular patient. Please triage. MINISTERIO Curry documented in this encounter Plan of Treatment Upcoming Encounters Date Type Department Care Team (Late st Contact Info) Description 06/01/2024 10:00 AM EST Home Visit [facility], [facility] [address] [facility] [place] [address] Heidi Garcia RN [address] [place] [address] 06/01/2024 12:50 PM EST Hospital Encounter [facility], OPERATING ROOM [facility] [address] [place] [facility] [place] [address] Beto Torrez MD [address] [place] [address] 06/01/2024 12:50 PM EST - 06/01/2024 2:21 PM EST Surgery OR [facility], OPERATING ROOM [facility] [address] [place] [facility] [id number] Beto Torrez MD [address] [place] [address] AV FISTULOGRAM STENT & PERIPHERAL ANGIOPLASTY 06/02/2024 9:20 AM EST Office Visit Nutrition & Weight Management, [facility] [address] [facility] [place] [address] Cleo Fonseca PA-C [address] [place] [address] 06/03/2024 8:15 AM EST Cardiac Studies Cardiac Studies, [facility] [address] [facility] [place] [address] 06/24/2024 2:30 PM EST Appointment Radiology [address] [place] [address], [place] [address] 07/01/2024 10:00 AM EST Office Visit Podiatry [facility] [address] [facility] [place] [address] Calli Avila DPM [address] [place] [address] 07/13/2024 10:00 AM EST Imaging Radiology [address] [facility] [place] [address] 08/10/2024 8:00 AM EST Office Visit Gastroenterology, [facility] [address] [facility] [place] [address] Emi Queen CRNP 132 [facility] [place] [address] Scheduled Procedures Name Priority Associated Diagnoses Date/Ti me AV FISTULOGRAM STENT & PERIPHERAL ANGIOPLASTY ESRD (end stage renal disease) on dialysis (HCC) 06/01/2024 12:50 PM EST COLONOSCOPY FLEXIBLE PROXIMAL DIAGNOSTIC Recall [...] encounter Medical Devices Implanted Type Area Rn Progressive Care Device Identifier Shelf Expiration Date Model / Serial / Lot Coil Vortex 35 Pltinm [id number] - [id number] Implanted:Qty: 1 on 11/27/2021 by Sterling Cates MD at OR [facility] Right: Upper Arm [employer] : NEURO INTR [id number] 08/15/2024 [id number] Coil Vortex 35 Pltinm [id number] - [id number] Implanted:Qty: 1 on 11/27/2021 by Sterling Cates MD at OR [facility] Right: Upper Arm [employer] : NEURO INTR [id number] 08/15/2024 [id number] Coil Vortex 35 Pltinm [id number] - [id number] Implanted:Qty: 1 on 11/27/2021 by Sterling Cates MD at OR [facility] Right: Upper Arm [employer] : NEURO INTR [id number] 08/15/2024 [id number] Coil Vortex 35 Pltinm [id number] - [id number] Implanted:Qty: 1 on 11/27/2021 by Sterling Cates MD at OR [facility] Right: Upper Arm [employer] : NEURO INTR [id number] 05/16/2024 [id number] / / [id number] Azur 35 Detachable 5mm 11cm - [id number] Implanted:Qty: 1 on 03/19/2022 by Jose Devine MD at OR [facility] Right: Wrist [employer] [id number] 10/18/2025 [id number] / / [id number] Azur 35 Detachable 5mm 11cm - [id number] Implanted:Qty: 1 on 03/19/2022 by Jose Devine MD at OR [facility] Right: Wrist [employer] [id number] 06/19/2026 [id number] / / [id number] Mesh Flat Sheet 10x14 [id number] - [id number] Implanted:Qty: 1 on 12/11/2022 by Eros Dash MD at OR [facility] N/A: Abdomen CR BARD : DAVOL [id number] 06/17/2027 [id number] / / [id number] documented as of this encounter Advance Directives Documents on File Type Date Recorded Patient Experimental Mechanic Expl anation POLST 11/13/2020 POLST [place] VALERIA [...] Agents on File Name Relationship Healthcare Agent Relationsky p Communication Zhen Finley Spouse Health Care Agent Care Teams Television Technician Relationship Specialty Start Date End Date Luis Fernando Rojas MD [address] [place] [address] PCP - General Family Medicine 09/23/16 documented as of this encounter
--- OUTSIDE RECORDS SUMMARY | 2024-07-08 02:54 | External Medical Summary | Summary of Care ---
Author Name Unknown Organization [facility] Address [address] [place] [address] Phone [phone] Care Team Providers Care Nuclear Physician Name Role Phone Luis Fernando Rojas MD Primary Care Provider [phone] Reason for Visit * Reason Onset Date Comments TRIAGE 05/25/2024 Encounter Details Date Type Department Care Team (Late st Contact Info) Description 05/25/2024 Telephone Vascular Surg [facility] [address] [place], [place] [id number] Services, Scheduling [address] [place] [address] TRIAGE Allergies Active Allergy Reactions Criticality Noted Date Comments Salvador Inhibitors Other (Please comment),Cough High HyperKalemia documented as of this encounter (statuses as of 05/25/2024) Medications Medication Sig Dispensed Refills Start Date [...] hemoglobin A1c goal of less than 7.0% ([facility]) Use 4 times daily with insulin [...] hemoglobin A1c goal of less than 7.0% ([facility]) Inject 16 units subcutaneously every day. 30 mL 4 10/28/2023 Active Insulin Lispro (1 Unit Dial) 100 UNIT/ML Subcutaneous Solution Pen-injector (HumaLOG KwikPen)Indication s:Type 2 diabetes mellitus with hemoglobin A1c goal of less than 7.0% ([facility]) Inject 14 units with breakfast, [...] by mouth in the morning. 03/23/2024 Active [facility] Verio In Vitro Strip (Glucose Blood) To test blood sugar 4 times daily. 400 Strip 1 04/20/2024 Active [employer] Delica Lancets 33G To test blood sugar 4 times daily. 400 Each 1 04/20/2024 Active [employer] w/Device Kit Use as directed. 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 [id number] 10/17/2023 12/11/19 25 Active documented as of this encounter (statuses as of 05/25/2024) Active Problems Problem Noted Date Diagnosed Date [...] 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 10/15/2022 [facility] OTHER*[id number] 01/01/2022 S/P gastric bypass 01/01/2022 Marginal ulcer [...] as of this encounter (statuses as of 05/25/2024) Resolved Problems Problem Noted Date Diagnosed Date [...] T-tube placement 04/16/2017 05/29/2017 [employer] Other*[id number] 04/13/2013 08/27/2016 Overview: Study Title: Genomic Markers for Patients with Cardiovascular Disease Project # [id number] Java Enterprise Architect: Siena Laws MD [phone] Hypertensive heart disease 03/25/2013 1 07/29/2016 Neuropathy, [...] as of this encounter (statuses as of 05/25/2024) Immunizations Name Administration Dates Next Due COVID-19 mRNA, LNP-s, No Pre serve, 2-Dose Series (Moderna) 04/09/2021,09/23/2020,08/19/2020 COVID-19, LNP-s, No Preserve , Espinoza-sucrose, Ages 12+ (Pfizer) 01/08/2022 HEPATITIS B VACCINE, RECOMB, 20 MCG/ML, ADULT (HEPLISAV-B) 09/05/2021,05/09/2021,04/04/2021,02/18 Hepatitis B, 20+ yrs 09/16/2018,04/14/2018,03/1104/11/2018 Pneumococcal Conjugate Vacci ne, 20-valent (Tugkyso19) 12/02/2023(Deferred: - pt states she's already received) [...] I called and spoke with Hina at [phone] and she states they called to set up the fistulagram but they were told they need a referral or she could not be seen. She states that she is having decreased access flow and decreased clearances. Pt gets dialysis on // Secretaries, Please set patient up for a [...] Team (Late st Contact Info) Description 05/27/2024 Hospital En[place] [facility] [facility] [address] [facility] [place] [address] eBto Torrez MD [address] [facility] [place] [address] 06/01/2024 10:00 AM EST Home Visit [facility] at [place], [facility] [address] [place] [address] Heidi Garcia, RN [address] [place] [address] 06/02/2024 9:20 AM EST Office Visit Nutrition & Weight Management, [facility] [address] [facility] [place] [address] Cleo Fonseca PA-C [address] [facility] [place] [address] 06/03/2024 8:15 AM EST Cardiac Studies Cardiac Studies, [address] [place] [address] 06/24/2024 2:30 PM EST Appointment Radiology [facility], [address] [place] [address] 07/01/2024 10:00 AM EST Office Visit Podiatry [address] [place] [address] Calli [facility]ila DPM [facility] [address] 07/13/2024 10:00 AM EST Imaging Radiology [facility] [address] [facility] [place] [address] [facility] [place] [address] 08/10/2024 8:00 AM EST Office Visit Gastroenterology, [facility] [place] [address] Emi Queen CRNP [facility] [place] [address] Scheduled Procedures Name Priority Associated Diagnoses Date/Ti [...] this encounter Medical Devices Implanted Type Area Marine Resource Economist Device Identifier Shelf Expiration Date Model / Serial / Lot Coil Vortex 35 Pltinm [id number] - [id number] Implanted:Qty: 1 on 11/27/2021 by Sterling Cates MD [place] [facility] [place]: Upper Arm [employer] : NEURO INTR [id number] 08/15/2024 [id number] / / [id number] Coil Vortex 35 Pltinm [id number] - [id number] Implanted:Qty: 1 on 11/27/2021 by Sterling Cates MD [place] [facility] [place]: Upper Arm [employer] : NEURO INTR [id number] 08/15/2024 [id number] / / [id number] Coil Vortex 35 Pltinm [id number] - [id number] Implanted:Qty: 1 on 11/27/2021 by Sterling Cates MD at [place] [facility] [place]: Upper Arm [employer] : NEURO INTR [id number] 08/15/2024 [id number] / / [id number] Coil Vortex 35 Pltinm [id number] - [id number] Implanted:Qty: 1 on 11/27/2021 by Sterling Cates MD at [place] [facility] [place]: Upper Arm [employer] : NEURO INTR [id number] 05/16/2024 [id number] / / [id number] Azur 35 Detachable 5mm 11cm - [id number] Implanted:Qty: 1 on 03/19/2022 by Jose Devine MD at [place] [facility] Right: Wrist [employer] [id number] 10/18/2025 [id number] / / [id number] Azur 35 Detachable 5mm 11cm - [id number] Implanted:Qty: 1 on 03/19/2022 by Jose Devine MD at [place] [facility] Right: Wrist [employer] [id number] 06/19/2026 [id number] / / [id number] Mesh Flat Sheet 10x14 [id number] - [id number] Implanted:Qty: 1 on 12/11/2022 by Eros Dash MD at [place] [facility] N/A: Abdomen CR BARD : DAVOL [id number] 06/17/2027 [id number] / / [id number] documented as of this encounter Advance Directives Documents on File Type Date Recorded Patient Barrel Builder Saranya FIGUEROA 11/13/2020 [facility] ORDERS FOR [...] Date Luis Fernando Rojas MD [address] [place] [address] PCP - General Family Medicine 09/23/16 documented as of this encounter
--- OUTSIDE RECORDS SUMMARY | 2024-07-08 02:54 | External Medical Summary | Summary of Care ---
Author Name Unknown Organization [facility] Address [address] [place] [address] Phone [phone] Care Team Providers Care Tight Cooper Name Role Phone Luis Fernando Rojas MD Primary Care Provider Reason for Visit * Reason Onset Date Comments Other 05/26/2024 LMOM 05/26 Encounter Details Date Type Department Care Team (Late st Contact Info) Description 05/26/[address] [facility] [address] [place] [address] Luis Fernando Rojas MD [address] [place] [address] Other (LMOM 05/26) Allergies Active Allergy Reactions Criticality Noted Date [...] A1c goal of less than 7.0% ([facility]) Inject 14 units with [...] by mouth in the morning. 03/23/2024 Active Musicraiser In Vitro Strip (Glucose Blood) To test blood sugar 4 times daily. 400 Strip 1 04/20/2024 Active Wipster Delica Lancets 33G To test blood sugar 4 times daily. 400 Each 1 04/20/2024 Active Munchkinio w/Device Kit Use as directed. 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 [id number] 10/17/2023 12/11/19 25 Active documented as of [...] 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 10/15/2022 MORFIN RESEARCH OTHER*[id number] 01/01/2022 S/P gastric bypass 01/01/2022 Marginal ulcer [...] 10/08/2022 Insulin long-term use 11/19/20182018 Overview: Duplicate 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 churn buttermaker (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 insulin 11/19/2018 10/08/2022 [...] T-tube placement 04/16/2017 05/29/2017 [employer] Other*[id number] 04/13/2013 08/27/2016 Overview: Study Title: Genomic Markers for Patients with Cardiovascular Disease Project # [id number] Range Management Specialist: Siena Laws MD [phone] Hypertensive heart disease 03/25/2013 1 07/29/2016 Neuropathy, [...] yrs 09/16/2018,04/14/2018,03/1104/11/2018 Pneumococcal Conjugate Vacci ne, 20-valent ([id number]) 12/02/2023(Deferred: - pt states she's already received) [...] Miscellaneous Notes * Telephone Encounter - Calli Pierce LPN - 05/26/2024 10:17 AM EST I tried to call patient but she did not answer so I LMOM for her to call the office in regards to lab work orders that need discussed with her. IF patient calls back please relay the information below from Dr. Rojas regarding her lab orders. Thank you. * Telephone Encounter - Luis Fernando Rojas MD - 05/26/2024 7:26 AM EST Notify Candi: Dr Reeves is unable to get additional blood work via dialysis unit (insurance issue). I would like to get a thyroid test (TSH) and lipid profile. They have been ordered. Maybe she couldcome in to lab at a time she is well hydrated and see if phlebotomists can bet some blood. * Telephone Encounter - Luis Fernando Rojas MD - 05/26/2024 7:25 AM EST ----- Message from Sameer Hassan MD sent at 05/26/2024 6:00 AM EST ----- Regarding: RE: blood draw Just coming back from vacation. Due to issues with payment/medicare rules Dialysis units which are all " for profit organizations" do not allow this. Sameer ----- Message ----- From: Luis Fernando Rojas MD Sent: 05/05/2024 6:26 PM EST To: Sameer Hassan MD Subject: blood draw Sameer, I know you are familiar with Candi and order blood work on regular basis via dialysis. She is an impossible venous stick for blood work. I do not know if you are able to order any extra tests to be done through dialysis unit? She needs TSH and lipid profile once per year. Unfortunately I have not been able to get these. Any chance you could order them? Niharika, Luis Fernando documented in this encounter Plan of Treatment Upcoming Encounters Date Type Department Care Team (Late st Contact Info) Description 05/27/2024 12:31 PM EST Hospital Encounter [place] [facility] [facility] [address] [facility] [place] [address] Beto Torrez MD [address] [facility] [place] [address] 05/27/2024 12:31 PM EST - 05/27/2024 2:02 PM EST Surgery [place] [facility] [facility] [facility] [address] [place] [address] Beto Torrez MD [address] [facility] [place] [address] AV FISTULOGRAM STENT & PERIPHERAL ANGIOPLASTY 06/01/2024 10:00 AM EST [facility] [address] [facility] [place] [address] Heidi Garcia, RN [address] [place] [address] 06/02/2024 9:20 AM EST Office Visit Nutrition & Weight Management, [facility] [address] [facility] [place] [address] Cleo Fonseca PA-C [address] [facility] [place] [address] 06/03/2024 8:15 AM EST Cardiac Studies Cardiac Studies, [facility] [address] [facility] [place] [address] 06/24/2024 2:30 PM EST Appointment Radiology [address] [place] [address], [place] [address] 07/01/2024 10:00 AM EST Office Visit Podiatry [facility] [address] [facility] [place] [address] Calli Avila DPM 132 [facility] [place] [address] 07/13/2024 10:00 AM EST Imaging Radiology [address] [facility] [place] [address] 08/10/2024 8:00 AM EST Office Visit Gastroenterology, [facility] [address] [facility] [place] [address] Emi Queen CRNP [address] [place] [address] Scheduled Orders Name Type Priority Associated Diagnoses Orde r Schedule TSH WITH FREE T4 IF INDICATED Lab Routine Hypothyroidism (acquired) Expected: 05/26/2024 (Approximate), Expires: 05/26/2025 LIPID PANEL WITH DIRECT LDL IF TG IS HIGH Lab Routine Dyslipidemia, goal LDL below 100 Expected: 05/26/2024, Expires: 05/26/2025 Scheduled Procedures Name Priority Associated Diagnoses Date/Ti me AV FISTULOGRAM STENT & PERIPHERAL ANGIOPLASTY ESRD (end stage renal disease) on dialysis (HCC) 05/27/2024 12:31 PM EST COLONOSCOPY FLEXIBLE PROXIMAL DIAGNOSTIC Recall [...] this encounter Medical Devices Implanted Type Area Geospatial Imagery Intelligence Analyst Device Identifier Shelf Expiration Date Model / Serial / Lot Coil Vortex 35 Pltinm [id number] - [id number] Implanted:Qty: 1 on 11/27/2021 by Sterling Cates MD at [place] [facility] [place] Right: Upper Arm [employer] : NEURO INTR [id number] 08/15/2024 [id number] Coil Vortex 35 Pltinm [id number] - [id number] Implanted:Qty: 1 on 11/27/2021 by Sterling Cates MD at [place] [facility] [place] Right: Upper Arm [employer] : NEURO INTR [id number] 08/15/2024 [id number] Coil Vortex 35 Pltinm [id number] - [id number] Implanted:Qty: 1 on 11/27/2021 by Sterling Cates MD at [place] [facility] [place] Right: Upper Arm [employer] : NEURO INTR [id number] 08/15/2024 [id number] Coil Vortex 35 Pltinm [id number] - [id number] Implanted:Qty: 1 on 11/27/2021 by Sterling Cates MD at [place] [facility] [place] Right: Upper Arm [employer] : NEURO INTR [id number] 05/16/2024 [id number] / / [id number] Azur 35 Detachable 5mm 11cm - [id number] Implanted:Qty: 1 on 03/19/2022 by Jose Devine MD at [place] [facility] [place] Right: Wrist [employer] [id number] 10/18/2025 [id number] / / [id number] Azur 35 Detachable 5mm 11cm - [id number] Implanted:Qty: 1 on 03/19/2022 by Jose Devine MD at [place] [facility] [place] Right: Wrist [employer] [id number] 06/19/2026 [id number] / / [id number] Mesh Flat Sheet 10x14 [id number] - [id number] Implanted:Qty: 1 on 12/11/2022 by Eros Dash MD at [place] [facility] [place] N/A: Abdomen CR BARD : DAVOL [id number] 06/17/2027 [id number] / / [id number] documented as of this encounter Visit Diagnoses Diagnosis End stage renal disease on dialysis (HCC)- Primary End stage renal disease Hypothyroidism (acquired)- Primary Unspecified hypothyroidism Dyslipidemia, goal LDL below 100 Other and unspecified hyperlipidemia ESRD (end stage renal disease) on dialysis (HCC) End stage renal disease Screening mammogram for breast cancer documented in this encounter Advance Directives Documents on File Type Date Recorded Patient Music Adapter Expl anation POLST 11/13/2020 POLST PENNSYLVA VALERIA [...] Name Relationship Healthcare Agent [facility] p Communication Zhen Finley Spouse Health Care Agent Care Teams Tight Cooper Relationship Specialty Start Date End Date Luis Fernando Rojas MD [address] [place] [address] PCP - General Family Medicine 09/23/16 documented as of this encounter
--- OUTSIDE RECORDS SUMMARY | 2024-07-08 02:54 | External Medical Summary | Summary of Care ---
Author Name Unknown Organization [facility] Address [address] [place] [address] Phone [phone] Care Team Providers Care Hairspring Vibrator Name Role Phone Luis Fernando Rojas MD Primary Care Provider [phone] Reason for Visit * Reason Onset Date Comments TRIAGE 05/25/2024 Encounter Details Date Type Department Care Team (Late st Contact Info) Description 05/25/2024 Telephone Vascular Surg [facility] [address] [place], [place] [id number] Services, Scheduling [address] [place] [address] TRIAGE Allergies Active Allergy Reactions Criticality Noted [...] goal of less than 7.0% ([facility]) Use 4 times daily with insulin [...] goal of less than 7.0% ([facility]) Inject 16 units subcutaneously every day. 30 mL 4 10/28/2023 Active Insulin Lispro (1 Unit Dial) 100 UNIT/ML Subcutaneous Solution Pen-injector (HumaLOG KwikPen)Indication s:Type 2 diabetes mellitus with hemoglobin A1c goal of less than 7.0% ([facility]) Inject 14 units with breakfast, 4 [...] by mouth in the morning. 03/23/2024 Active Shave Club Verio In Vitro Strip (Glucose Blood) To test blood sugar 4 times daily. 400 Strip 1 04/20/2024 Active Zeccouch Delica Lancets 33G To test blood sugar 4 times daily. 400 Each 1 04/20/2024 Active Yik Yakio w/Device Kit Use as directed. 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 [id number] 10/17/2023 12/11/19 25 Active documented as of [...] 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 10/15/2022 MORFIN RESEARCH OTHER*[id number] 01/01/2022 S/P gastric bypass 01/01/2022 Marginal ulcer [...] Insulin long-term use 11/19/20182018 Overview: 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 11/19/2018 [...] T-tube placement 04/16/2017 05/29/2017 [employer] Other*[id number] 04/13/2013 08/27/2016 Overview: Study Title: Genomic Markers for Patients with Cardiovascular Disease Project # [id number] Supervisor Sterile Processing: Siena Laws MD [phone] Hypertensive heart disease 03/25/2013 1 07/29/2016 Neuropathy, [...] yrs 09/16/2018,04/14/2018,03/1104/11/2018 Pneumococcal Conjugate Vacci ne, 20-valent ([id number]) 12/02/2023(Deferred: - pt states she's already received) [...] encounter Miscellaneous Notes * Telephone Encounter - Mari Gan - Aliyah Ob/OrMINISTERIO - 05/27/2024 7:44 AM EST Candi called back surgery date 06.01 is ok for her Thank you mari * Telephone Encounter - Matteo Salcido OSA [...] I called and spoke with Hina at [phone] and she states they called to set [...] Description 06/01/2024 10:00 AM EST Home Visit [facility] [address] [facility] [place] [address] Heidi Garcia, RN [address] [place] [address] 06/01/2024 12:50 PM EST Hospital Encounter [place] [facility], OPERATING ROOM [facility], [facility] [address] [place] [address] Beto Torrez MD [address] [place], [place] [address] 06/01/2024 12:50 PM EST - 06/01/2024 2:21 PM EST Surgery [place] [facility], OPERATING ROOM [facility], [facility] [address] [place] [address] Beto Torrez MD [address] [place], [place] [phone] AV FISTULOGRAM STENT & PERIPHERAL ANGIOPLASTY 06/02/2024 9:20 AM EST Office Visit Nutrition & Weight Management, [facility] [address] [facility] [place] [address] Cleo Fonseca PA-C 132 [facility] [place] [address] 06/03/2024 8:15 AM EST Cardiac Studies Cardiac Studies, [facility] 132 [facility] [place] [address] 06/24/2024 2:30 PM EST Appointment Radiology [facility], [address] [place] [address] 07/01/2024 10:00 AM EST Office Visit Podiatry [facility] [address] [facility] [place] [address] Calli Avila DPM [address] [place] [address] 07/13/2024 10:00 AM EST Imaging Radiology [facility] [address] [place] [address] 08/10/2024 8:00 AM EST Office Visit Gastroenterology, [facility] [address] [facility] [place] [address] Emi Queen CRNP [address] [place] [address] Scheduled Procedures Name Priority Associated Diagnoses Date/Ti me AV FISTULOGRAM STENT & PERIPHERAL ANGIOPLASTY ESRD (end stage renal disease) on dialysis ([facility]) 06/01/2024 12:50 PM EST COLONOSCOPY FLEXIBLE PROXIMAL [...] Depression Monitoring 08/14/2024 08/14/2023 HbA1c 11/05/2024 05/07/2024, 05/11/2022, 07/01/2022, Additional history exists Diabetic Eye Exam [...] this encounter Medical Devices Implanted Type Area Erosion Control Coordinator Device Identifier Shelf Expiration Date Model / Serial / Lot Coil Vortex 35 Pltinm [id number] - [id number] Implanted:Qty: 1 on 11/27/2021 by Sterling Cates MD at [place] [facility] Right: Upper Arm [employer] : NEURO INTR [id number] 08/15/2024 [id number] Coil Vortex 35 Pltinm [id number] - [id number] Implanted:Qty: 1 on 11/27/2021 by Sterling Cates MD at OR [facility] Right: Upper Arm [employer] : NEURO INTR [id number] 08/15/2024 [id number] Coil Vortex 35 Pltinm [id number] - [id number] Implanted:Qty: 1 on 11/27/2021 by Sterling Cates MD at OR [facility] Right: Upper Arm [employer] : NEURO INTR [id number] 08/15/2024 [id number] / / [id number] Coil Vortex 35 Pltinm [id number] - [id number] Implanted:Qty: 1 on 11/27/2021 by Sterling Cates MD at OR [facility] [place] Right: Upper Arm [employer] : NEURO INTR [id number] 05/16/2024 [id number] / / [id number] Azur 35 Detachable 5mm 11cm - [id number] Implanted:Qty: 1 on 03/19/2022 by Jose Devine MD at OR [facility] Right: Wrist [employer] [id number] 10/18/2025 [id number] / / [id number] Azur 35 Detachable 5mm 11cm - [id number] Implanted:Qty: 1 on 03/19/2022 by Jose Devine MD at OR [facility] Right: Wrist [employer] [id number] 06/19/2026 [id number] / / [id number] Mesh Flat Sheet 10x14 [id number] - [id number] Implanted:Qty: 1 on 12/11/2022 by Eros Dash MD at [place] [facility] N/A: Abdomen CR BARD : DAVOL [id number] 06/17/2027 [id number] / / [id number] documented as of this encounter Advance Directives Documents on File Type Date Recorded Patient Assembler Chassis Expl anation POL 11/13/2020 POLST PENNSYLVA VALERIA [...] Finley Spouse Health Care Agent Care Teams Hairspring Vibrator Relationship Specialty Start Date End Date Luis Fernando Rojas MD [address] [place] [address] PCP - General Family Medicine 09/23/16 documented as of this encounter
--- OUTSIDE RECORDS SUMMARY | 2024-07-08 02:54 | External Medical Summary | Summary of Care ---
Author Name Unknown Organization [facility] Address [address] [place] [address] Phone [phone] Care Team Providers Care Patient Access Coordinator Name Role Phone Luis Fernando Rojas MD Primary Care Provider [phone] Reason for Visit * Reason Onset Date Comments TRIAGE 05/25/2024 Encounter Details Date Type Department Care Team (Late st Contact Info) Description 05/25/2024 Telephone Vascular Surg [facility] [address] [place], [place] [phone] Services, Scheduling [address] [place] [address] TRIAGE Allergies Active Allergy Reactions Criticality Noted [...] goal of less than 7.0% ([facility]) Use 4 times daily with insulin 400 [...] goal of less than 7.0% ([facility]) Inject 16 units subcutaneously every day. 30 mL 4 10/28/2023 Active Insulin Lispro (1 Unit Dial) 100 UNIT/ML Subcutaneous Solution Pen-injector (HumaLOG KwikPen)Indication s:Type 2 diabetes mellitus with hemoglobin A1c goal of less than 7.0% ([facility]) Inject 14 units with breakfast, 4 units [...] by mouth in the morning. 03/23/[address] [employer] Verio In Vitro Strip (Glucose Blood) To test blood sugar 4 times daily. 400 Strip 1 04/20/2024 Active Unitrio Technologyuch Delica Lancets 33G To test blood sugar 4 times daily. 400 Each 1 04/20/2024 Active Sclobyio w/Device Kit Use as directed. 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 [id number] 10/17/2023 12/11/19 25 Active documented as of [...] 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 10/15/2022 MORFIN RESEARCH OTHER*[id number] 01/01/2022 S/P gastric bypass 01/01/2022 Marginal ulcer [...] T-tube placement 04/16/2017 05/29/2017 [employer] Other*[id number] 04/13/2013 08/27/2016 Overview: Study Title: Genomic Markers for Patients with Cardiovascular Disease Project # [id number] Revenue Cycle Specialist: Siena Laws MD [phone] Hypertensive heart disease 03/25/2013 1 07/29/2016 Neuropathy, [...] yrs 09/16/2018,04/14/2018,03/1104/11/2018 Pneumococcal Conjugate Vacci ne, 20-valent (Ewhxsem12) 12/02/2023(Deferred: - pt states she's already received) [...] encounter Miscellaneous Notes * Telephone Encounter - Abundio Bird CRNP [...] I called and spoke with Hina at [phone] and she states they called to set up the fistulagram but they were told they need a referral or she could not be seen. She states that she is having decreased access flow and decreased clearances. Pt gets dialysis on M/W/F Secretaries, Please set patient up for a fistulagram. aCndi Torres LPN 05/25/2024 10:05 AM * Telephone Encounter - Saida Dacosta OSA - 05/25/2024 9:46 AM EST Tracey from IR received an order for IR Venous Fistulogram however, this patient is a vascular patient. Please triage. MINISTERIO Curry documented in this encounter Plan of Treatment Upcoming Encounters Date Type Department Care Team (Late st Contact Info) Description 06/01/2024 10:00 AM EST Home Visit [facility] [address] [place] [address] Heidi Garcia RN [address] [place] [address] 06/02/2024 9:20 AM EST Office Visit [facility], [facility] [address] [place] [address] Cleo Fonseca PA-C [address] [place] [address] 06/03/2024 8:15 AM EST Cardiac Studies Cardiac Studies, [facility] [address] [place] [address] 06/24/2024 2:30 PM EST Appointment Radiology [facility], [address] [place] [address] 07/01/2024 10:00 AM EST Office Visit Podiatry [facility] [address] [facility] [place] [address] Calli Avila, DPM [address] [place] [address] 07/13/2024 10:00 AM EST Imaging Radiology [facility] 1st Floor, [place] [address] [facility] [place] [address] 08/10/2024 8:00 AM EST Office Visit Gastroenterology, [facility] [address] [facility] [place] [address] Emi Queen CRNP [address] [place] [address] Scheduled Procedures Name Priority Associated Diagnoses Date/Ti [...] Depression Monitoring 08/14/2024 08/14/2023 HbA1c 11/05/2024 05/07/2024, 05/2 11/2022, 07/01/2022, Additional history exists Diabetic Eye Exam [...] this encounter Medical Devices Implanted Type Area Public Speaking Professor Device Identifier Shelf Expiration Date Model / Serial / Lot Coil Vortex 35 Pltinm [id number] - [id number] Implanted:Qty: 1 on 11/27/2021 by Sterling Cates MD [place] [facility] Right: Upper Arm [employer] : NEURO INTR [id number] 08/15/2024 [id number] Coil Vortex 35 Pltinm [id number] - [id number] Implanted:Qty: 1 on 11/27/2021 by Sterling Cates MD at [place] [facility] Right: Upper Arm [employer] : NEURO INTR [id number] 08/15/2024 [id number] Coil Vortex 35 Pltinm 207525 - [id number] Implanted:Qty: 1 on 11/27/2021 by Sterling Cates MD at [place] [facility] Right: Upper Arm [employer] : NEURO INTR [id number] 08/15/2024 [id number] / / [id number] Coil Vortex 35 Pltinm [id number] - [id number] Implanted:Qty: 1 on 11/27/2021 by Sterling Cates MD at [place] [facility] Right: Upper Arm [employer] : NEURO INTR [id number] 05/16/2024 [id number] / / [id number] Azur 35 Detachable 5mm 11cm - [id number] Implanted:Qty: 1 on 03/19/2022 by Jose Devine MD at [place] [facility] Right: Wrist [employer] [id number] 10/18/2025 [id number] / / [id number] Azur 35 Detachable 5mm 11cm - [id number] Implanted:Qty: 1 on 03/19/2022 by Jose Devine MD at [place] [facility] Right: Wrist [employer] [id number] 06/19/2026 [id number] / / [id number] Mesh Flat Sheet 10x14 [id number] - [id number] Implanted:Qty: 1 on 12/11/2022 by Eros Dash MD at [place] [facility] N/A: Abdomen CR BARD : DAVOL [id number] 06/17/2027 [id number] / / [id number] documented as of this encounter Advance Directives Documents on File Type Date Recorded Patient Ethnology Professor Expl anation POLST 11/13/2020 POLST PENNSYLVA VALERIA [...] Finley Spouse Health Care Agent Care Teams Patient Access Coordinator Relationship Specialty Start Date End Date Luis Fernando Rojas MD [address] [place] [address] PCP - General Family Medicine 09/23/16 documented as of this encounter
--- OUTSIDE RECORDS SUMMARY | 2024-07-08 02:54 | External Medical Summary | Summary of Care ---
Author Name Unknown Organization [facility] Address [address] [place] [address] Phone [phone] Care Team Providers Care Chief Controller Name Role Phone Luis Fernando Rojas MD Primary Care Provider Reason for Visit * Reason Onset Date Comments TRIAGE 05/25/2024 Encounter Details Date Type Department Care Team (Late st Contact Info) Description 05/25/2024 Telephone Vascular Surg [facility] [address], [place] [phone] Services, Scheduling [address] [place] [address] TRIAGE Allergies Active Allergy Reactions Criticality Noted [...] of less than 7.0% ([facility]) Inject 16 units subcutaneously every day. 30 mL 4 10/28/2023 Active Insulin Lispro (1 Unit Dial) 100 UNIT/ML Subcutaneous Solution Pen-injector (HumaLOG KwikPen)Indication s:Type 2 diabetes mellitus with hemoglobin A1c goal of less than 7.0% ([facility]) Inject 14 units with breakfast, [...] by mouth in the morning. 03/23/2024 Active JourneyPure Verio In Vitro Strip (Glucose Blood) To test blood sugar 4 times daily. 400 Strip 1 04/20/2024 Active Bitdeliuch Delica Lancets 33G To test blood sugar 4 times daily. 400 Each 1 04/20/2024 Active Pomeloio w/Device Kit Use as directed. 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 [id number] 10/17/2023 12/11/19 25 Active documented as of [...] 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 10/15/2022 [facility] OTHER*[id number] 01/01/2022 S/P gastric bypass 01/01/2022 Marginal ulcer [...] T-tube placement 04/16/2017 05/29/2017 [employer] Other*[id number] 04/13/2013 08/27/2016 Overview: Study Title: Genomic Markers for Patients with Cardiovascular Disease Project # [id number] Plasma Processing Centrifuge Operator: Siena Laws MD [phone] Hypertensive heart disease 03/25/2013 1 07/29/2016 Neuropathy, [...] yrs 09/16/2018,04/14/2018,03/1104/11/2018 Pneumococcal Conjugate Vacci ne, 20-valent ([id number]) 12/02/2023(Deferred: - pt states she's already received) [...] I called and spoke with Hina at [phone] and she states they called to set [...] Description 06/01/2024 10:00 AM EST Home Visit [facility] [address] [facility] [place] [address] Heidi Garcia, RN [address] [place] [address] 06/01/2024 12:50 PM EST Hospital Encounter [place] [facility] [place], OPERATING ROOM [facility] [place] [facility] [address] [place] [address] Beto Torrez MD [address], [place] [phone] 06/01/2024 12:50 PM EST - 06/01/2024 2:21 PM EST Surgery OR [facility] [place], OPERATING ROOM [facility] [place] [facility] [address] [place] [phone] Beto Torrez MD [address], [place] [phone] AV FISTULOGRAM STENT & PERIPHERAL ANGIOPLASTY 06/02/2024 9:20 AM EST Office Visit Nutrition & Weight Management, [facility] [address] [facility] [place] [address] Cleo Fonseca PA-C [address] [facility] [place] [address] 06/03/2024 8:15 AM EST Cardiac Studies Cardiac Studies, [facility] 132 [facility] [place] [address] 06/24/2024 2:30 PM EST Appointment Radiology [facility], [address] [place] [address] 07/01/2024 10:00 AM EST Office Visit Podiatry [facility] [address] [facility] [place] [address] Calli Avila DPM [address] [place] [address] 07/13/2024 10:00 AM EST Imaging Radiology [facility] [address] [place] [address] 08/10/2024 8:00 AM EST Office Visit Gastroenterology, [facility] [address] [facility] [place] [address] Emi Queen CRNP [address] [place] [address] Scheduled Procedures Name Priority Associated Diagnoses Date/Ti me AV FISTULOGRAM STENT & PERIPHERAL ANGIOPLASTY ESRD (end stage renal disease) on dialysis ([facility]) 06/01/2024 12:50 PM EST COLONOSCOPY FLEXIBLE PROXIMAL [...] this encounter Medical Devices Implanted Type Area Sliver Handler Device Identifier Shelf Expiration Date Model / Serial / Lot Coil Vortex 35 Pltinm [id number] - [id number] Implanted:Qty: 1 on 11/27/2021 by Sterling Cates MD at OR [facility] [place] Right: Upper Arm [employer] : NEURO INTR [id number] 08/15/2024 [id number] Coil Vortex 35 Pltinm [id number] - [id number] Implanted:Qty: 1 on 11/27/2021 by Sterling Cates MD at OR [facility] [place] Right: Upper Arm [employer] : NEURO INTR [id number] 08/15/2024 [id number] Coil Vortex 35 Pltinm [id number] - [id number] Implanted:Qty: 1 on 11/27/2021 by Sterling Cates MD at OR [facility] [place] Right: Upper Arm [employer] : NEURO INTR [id number] 08/15/2024 [id number] / / [id number] Coil Vortex 35 Pltinm [id number] - [id number] Implanted:Qty: 1 on 11/27/2021 by Sterling Cates MD at OR [facility] [place] Right: Upper Arm [employer] : NEURO INTR [id number] 05/16/2024 [id number] / / [id number] Azur 35 Detachable 5mm 11cm - [id number] Implanted:Qty: 1 on 03/19/2022 by Jose Devine MD at OR [facility] [place] Right: Wrist [employer] [id number] 10/18/2025 [id number] / / [id number] Azur 35 Detachable 5mm 11cm - [id number] Implanted:Qty: 1 on 03/19/2022 by Jose Devine MD at OR [facility] [place] Right: Wrist [employer] [id number] 06/19/2026 [id number] / / [id number] Mesh Flat Sheet 10x14 [id number] - [id number] Implanted:Qty: 1 on 12/11/2022 by Eros Dash MD at OR [facility] [place] N/A: Abdomen CR BARD : DAVOL [id number] 06/17/2027 [id number] / / [id number] documented as of this encounter Advance Directives Documents on File Type Date Recorded Patient Non Destructive Testing Specialist Expl anation POL 11/13/2020 POLST PENNSYLVA VALERIA [...] Agents on File Name Relationship Healthcare Agent [facility] p Communication Zhen Finley Spouse Health Care Agent Care Teams Chief Controller Relationship Specialty Start Date End Date Luis Fernando Rojas MD [address] [place] [address] PCP - General Family Medicine 09/23/16 documented as of this encounter
--- OUTSIDE RECORDS SUMMARY | 2024-07-08 02:54 | External Medical Summary | Summary of Care ---
Author Name Unknown Organization [facility] Address [address] [place] [address] Phone [phone] Care Team Providers Care Rotary Furnace Tender Name Role Phone Luis Fernando Rojas MD Primary Care Provider Reason for Visit * Reason Onset Date Comments Other 05/26/2024 LMOM 05/26 Encounter Details Date Type Department Care Team (Late st Contact Info) Description 05/26/2024 Telephone [facility] [address] [place] [address] Luis Fernando Rojas MD [address] [place] [address] Other (LMOM 05/26) Allergies Active [...] goal of less than 7.0% ([facility]) Inject 14 units with breakfast, 4 units [...] by mouth in the morning. 03/23/2024 Active ShowMe.tv In Vitro Strip (Glucose Blood) To test blood sugar 4 times daily. 400 Strip 1 04/20/2024 Active Treater Delica Lancets 33G To test blood sugar 4 times daily. 400 Each 1 04/20/2024 Active Audience Partnersio w/Device Kit Use as directed. 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 10/15/2022 [facility] OTHER*[id number] 01/01/2022 S/P gastric bypass 01/01/2022 Marginal ulcer [...] 10/08/2022 Insulin long-term use 11/19/20182018 Overview: Duplicate bed bug exterminator (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 insulin 11/19/2018 10/08/2022 [...] T-tube placement 04/16/2017 05/29/2017 [employer] Other*[id number] 04/13/2013 08/27/2016 Overview: Study Title: Genomic Markers for Patients with Cardiovascular Disease Project # [id number] Rolled Gold Plater: Siena Laws MD [phone] Hypertensive heart disease 03/25/2013 1 07/29/2016 Neuropathy, [...] yrs 09/16/2018,04/14/2018,03/1104/11/2018 Pneumococcal Conjugate Vacci ne, 20-valent ([id number]) 12/02/2023(Deferred: - pt states she's already received) [...] Telephone Encounter - Janice Orr LPN - 05/27/2024 7:50 AM EST Spoke with pt and made aware of message below. Pt stated understanding. * Telephone Encounter - Calli Pierce LPN [...] 05/26/2024 7:26 AM EST Notify Candi: Dr Leandro is unable to get additional blood work [...] MD Sent: 05/05/2024 6:26 PM EST To: Samere Hassan MD Subject: blood draw Sameer, I [...] these. Any chance you could order them? Luis Fernando Bundy documented in this encounter Plan of Treatment Upcoming Encounters Date Type Department Care Team (Late st Contact Info) Description 06/01/2024 10:00 AM EST Home Visit [facility], [facility] [address] [facility] [place] [address] Heidi Garcia, RN [address] [place] [address] 06/01/2024 12:50 PM EST Hospital Encounter OR [facility] [place], OPERATING ROOM [facility] [place] [address] [facility] [place] [phone] Beto Torrez MD [address] [place] [address] 06/01/2024 12:50 PM EST - 06/01/2024 2:21 PM EST Surgery OR [facility] [place], OPERATING ROOM [facility] [place] [address] [facility] [place] [phone] Beto Torrez MD [address] [place] [address] AV FISTULOGRAM STENT & PERIPHERAL ANGIOPLASTY 06/02/2024 9:20 AM EST Office Visit Nutrition & Weight Management, [facility] [address] [facility] [place] [address] Cleo Fonseca PA-C [address] [place] [address] 06/03/2024 8:15 AM EST Cardiac Studies Cardiac Studies, [facility] [address] [place] [address] 06/24/2024 2:30 PM EST Appointment Radiology [address] [place] [address], [place] [address] 07/01/2024 10:00 AM EST Office Visit Podiatry [facility] [address] [place] [address] Calli Avila DPM [address] [place] [address] 07/13/2024 10:00 AM EST Imaging Radiology [facility] [address] [facility] [place] [address] 08/10/2024 8:00 AM EST Office Visit Gastroenterology, [facility] [address] [facility] [place] [address] Emi Queen CRNP [address] [place] [address] Scheduled Orders Name Type Priority Associated Diagnoses [...] this encounter Medical Devices Implanted Type Area Junior Sales Representative Device Identifier Shelf Expiration Date Model / Serial / Lot Coil Vortex 35 Pltinm [id number] - [id number] Implanted:Qty: 1 on 11/27/2021 by Sterling Cates MD at OR [facility] [place] Right: Upper Arm [employer] : NEURO INTR [id number] 08/15/2024 [id number] Coil Vortex 35 Pltinm [id number] - [id number] Implanted:Qty: 1 on 11/27/2021 by Sterling Cates MD at OR [facility] [place] Right: Upper Arm [employer] : NEURO INTR [id number] 08/15/2024 [id number] Coil Vortex 35 Pltinm [id number] - [id number] Implanted:Qty: 1 on 11/27/2021 by Sterling Cates MD at OR [facility] [place] Right: Upper Arm [employer] : NEURO INTR [id number] 08/15/2024 [id number] / / [id number] Coil Vortex 35 Pltinm [id number] - [id number] Implanted:Qty: 1 on 11/27/2021 by Sterling Cates MD at OR [facility] [place] Right: Upper Arm [employer] : NEURO INTR [id number] 05/16/2024 [id number] / / [id number] Azur 35 Detachable 5mm 11cm - [id number] Implanted:Qty: 1 on 03/19/2022 by Jose Devine MD at OR [facility] [place] Right: Wrist [employer] [id number] 10/18/2025 [id number] / / [id number] Azur 35 Detachable 5mm 11cm - [id number] Implanted:Qty: 1 on 03/19/2022 by Jose Devine MD at OR [facility] [place] Right: Wrist [employer] [id number] 06/19/2026 [id number] / / [id number] Mesh Flat Sheet 10x14 [id number] - [id number] Implanted:Qty: 1 on 12/11/2022 by Eros Dash MD at OR [facility] [place] N/A: Abdomen CR BARD : DAVOL [id number] 06/17/2027 [id number] / / [id number] documented as of this encounter Visit Diagnoses [...] Documents on File Type Date Recorded Patient Prototype Technician Expl anation POLST 11/13/2020 POLST NASREEN SHAW [...] Agents on File Name Relationship Healthcare Agent [facility] p Communication Zhen Finley Spouse Health Care Agent Care Teams Rotary Furnace Tender Relationship Specialty Start Date End Date Luis Fernando Rojas MD [address] [place] [address] PCP - General Family Medicine 09/23/16 documented as of this encounter
--- OUTSIDE RECORDS SUMMARY | 2024-07-08 02:55 | External Medical Summary | Summary of Care ---
Author Name Unknown Organization [facility] Address [address] [place] [address] Phone [phone] Care Team Providers Care Family Manager Name Role Phone Luis Fernando Rojas MD Primary Care Provider [phone] Encounter Details Date Type Department Care Team (Late st Contact Info) Description 05/13/2024 Result Scan Unspecified Department Ulises Stevenson, DO [address] [place] [address] <No scans attached> Allergies Active Allergy Reactions Criticality Noted Date Comments Salvador Inhibitors Other (Please comment),Cough High HyperKalemia documented as of this encounter (statuses as of 05/13/2024) Medications Medication Sig Dispensed Refills Start Date [...] directed. Replace every 14 days (supplied through [facility]) 7 Each 3 05/17/2021 Active CPAP every [...] by mouth in the morning. 03/23/2024 Active Tradier In Vitro Strip (Glucose Blood) To test blood sugar 4 times daily. 400 Strip 1 04/20/2024 Active Cap That Delica Lancets 33G To test blood sugar 4 times daily. 400 Each 1 04/20/2024 Active [employer] w/Device Kit Use as directed. 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 10/15/2022 [facility] OTHER*[id number] 01/01/2022 S/P gastric bypass 01/01/2022 Marginal ulcer [...] with dialysis Has fistulogram a week today 10 as having some issues at HD sessions [...] 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: 2010 L calf MIS 03/2021 R upper arm MM at least 1.1 mm, SLNB negative (0/2), IB Dyslipidemia, goal LDL below 100 Overview: primarily high triglycerides Last Assessment & Plan: Continues on 20 of atorvastatin, updated medication rec as it said 40 documented as of this encounter (statuses as of 05/13/2024) Resolved Problems Problem Noted Date Diagnosed Date [...] 10/08/2022 Insulin long-term use 11/19/20182018 Overview: Duplicate USP (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 insulin 11/19/2018 10/08/2022 Morbid [...] T-tube placement 04/16/2017 05/29/2017 [employer] Other*[id number] 04/13/2013 08/27/2016 Overview: Study Title: Genomic Markers for Patients with Cardiovascular Disease Project # [id number] Binding Stitcher: Siena Laws MD [phone] Hypertensive heart disease 03/25/2013 1 07/29/2016 Neuropathy, [...] as of this encounter (statuses as of 05/13/2024) Immunizations Name Administration Dates Next Due COVID-19 mRNA, LNP-s, No Pre serve, 2-Dose Series (Moderna) 04/09/2021,09/23/2020,08/19/2020 COVID-19, LNP-s, No Preserve , Espinoza-sucrose, Ages 12+ (Pfizer) 01/08/2022 HEPATITIS B VACCINE, RECOMB, 20 MCG/ML, ADULT (HEPLISAV-B) 09/05/2021,05/09/2021,04/04/2021,02/18 Hepatitis B, 20+ yrs 09/16/2018,04/14/2018,03/1104/11/2018 Pneumococcal Conjugate Vacci ne, 20-valent (Izstufm40) 12/02/2023(Deferred: - pt states she's already received) [...] Care Team (Late st Contact Info) Description 05/14/2024 12:20 PM EDT Office Visit Dermatology [facility] [address] [place] [address] Maureen Shah PA-C [address] [facility] [place] [address] 06/01/2024 10:00 AM EST Home Visit [facility], [facility] [address] [place] [address] Heidi Garcia, RN [address] [place] [address] 06/02/2024 9:20 AM EST Office Visit Nutrition & Weight Management, [facility] [address] [place] [address] Cleo Fonseca PA-C [address] [place] [address] 06/03/2024 8:15 AM EST Cardiac Studies Cardiac Studies, [facility] [address] [facility] [place] [address] 07/01/2024 10:00 AM EST Office Visit Podiatry [facility] 132 [facility] [place] [address] Calli Avila DPM 132 [facility] [place] [address] 08/10/2024 8:00 AM EST Office Visit Gastroenterology, [facility] [address] [facility] [place] [address] Emi Queen CRNP [facility] [place] [address] Scheduled Procedures Name Priority Associated Diagnoses Date/Ti [...] this encounter Medical Devices Implanted Type Area Peanut Farmer Device Identifier Shelf Expiration Date Model / Serial / Lot Coil Vortex 35 Pltinm [id number] - [id number] Implanted:Qty: 1 on 11/27/2021 by Sterling Cates MD [place] [facility] [place] Right: Upper Arm [employer] : NEURO INTR [id number] 08/15/2024 [id number] Coil Vortex 35 Pltinm [id number] - [id number] Implanted:Qty: 1 on 11/27/2021 by Sterling Cates MD at [place] [facility] [place] Right: Upper Arm [employer] : NEURO INTR [id number] 08/15/2024 [id number] / / [id number] Coil Vortex 35 Pltinm [id number] - [id number] Implanted:Qty: 1 on 11/27/2021 by Sterling Cates MD at [place] [facility] [place] Right: Upper Arm [employer] : NEURO INTR [id number] 08/15/2024 [id number] / / [id number] Coil Vortex 35 Pltinm [id number] - [id number] Implanted:Qty: 1 on 11/27/2021 by Sterling Cates MD at [place] [facility] [place] Right: Upper Arm [employer] : NEURO INTR [id number] 05/16/2024 [id number] / / [id number] Azur 35 Detachable 5mm 11cm - [id number] Implanted:Qty: 1 on 03/19/2022 by Jose Devine MD at [place] [facility] [place] Right: Wrist [employer] [id number] 10/18/2025 [id number] / / [id number] Azur 35 Detachable 5mm 11cm - [id number] Implanted:Qty: 1 on 03/19/2022 by Jose Devine MD at [place] [facility] Right: Wrist [employer] [id number] 06/19/2026 [id number] / / [id number] Mesh Flat Sheet 10x14 [id number] - [id number] Implanted:Qty: 1 on 12/11/2022 by Eros Dash MD at [place] [facility] [place] N/A: Abdomen CR BARD : DAVOL [id number] 06/17/2027 [id number] / / [id number] documented as of this encounter Procedures Procedure Name Priority Date/Time Associated Diagnosis Comments CARDIOLOGY SCANNED RESULT 05/13/2024 documented in this encounter Results * CARDIOLOGY SCANNED RESULT (05/13/2024) 05/13/2024 Ulises Stevenson DO OTHER documented in this encounter Advance Directives Documents on File Type Date Recorded Patient Executive Administrator Expl anation POLST 11/13/2020 POLST FLAKITOA VALERIA [...] on File Name Relationship [facility] p Communication Zhen Finley Spouse Health Care Agent Care Teams Family Manager Relationship Specialty Start Date End Date Luis Fernando Rojas MD [address] [place] [address] PCP - General Family Medicine 09/23/16 documented as of this encounter
--- OUTSIDE RECORDS SUMMARY | 2024-07-08 02:55 | External Medical Summary | Summary of Care ---
Author Name Unknown Organization [facility] Address [address] [place] [address] Phone [phone] Care Team Providers Care Cleaning Matron Name Role Phone Luis Fernando Rojas MD Primary Care Provider Reason for Visit * Reason Onset Date Comments Follow Up Pt states that s he is here for a follow up Medication Administration 05/05/2024 Flu an d/or Pneumo Inj Encounter Details Date Type Department Care Team (Latest Contact Info) Description 05/05/2024 5:40 PM EDT Office Visit [facility] [address] [place] [address] Luis Fernando Rojas MD [address] [place] [address] Need for prophylactic vaccination and inoculation against influenza*; 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) Use 4 times daily with insulin [...] hemoglobin A1c goal of less than 7.0% ([facility]) Inject 16 units subcutaneously every day. 30 mL 4 10/28/2023 Active Insulin Lispro (1 Unit Dial) 100 UNIT/ML Subcutaneous Solution Pen-injector (HumaLOG KwikPen)Indication s:Type 2 diabetes mellitus with hemoglobin A1c goal of less than 7.0% ([facility]) Inject 14 units with breakfast, 4 [...] by mouth in the morning. 03/23/2024 Active Stakeforceio In Vitro Strip (Glucose Blood) To test blood sugar 4 times daily. 400 Strip 1 04/20/2024 Active [employer] Delica Lancets 33G To test blood sugar 4 times daily. 400 Each 1 04/20/2024 Active Swirl Verio w/Device Kit Use as directed. 1 Kit 04/20/2024 Active Hospital, Clinic, or Other Facility Administered Medication Ordered Dose Route Frequency Start Date End Date Status vitamin b-12 (Cyanocobalamin) inj 1,000 mcgIndications:S/P gastric bypass 1000 mcg IM [id number] 10/15/2022 07/19/2025 Active vitamin b-12 (Cyanocobalamin) inj 1,000 mcgIndications:Morbid obesity with BMI of 40.0-44.9, adult (HCC),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 [id number] 10/17/2023 12/11/19 25 Active documented as of this encounter (statuses as of 05/05/2024) Active Problems Problem Noted Date Diagnosed Date [...] 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 10/15/2022 MORFIN RESEARCH OTHER*[id number] 01/01/2022 S/P gastric bypass 01/01/2022 Marginal ulcer [...] as of this encounter (statuses as of 05/05/2024) Resolved Problems Problem Noted Date Diagnosed Date [...] Insulin long-term use 11/19/20182018 Overview: 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 insulin 11/19/2018 10/08/2022 [...] T-tube placement 04/16/2017 05/29/2017 [employer] Other*[id number] 04/13/2013 08/27/2016 Overview: Study Title: Genomic Markers for Patients with Cardiovascular Disease Project # [id number] It Technician: Siena Laws MD [phone] Hypertensive heart disease 03/25/2013 1 07/29/2016 Neuropathy, [...] as of this encounter (statuses as of 05/05/2024) Immunizations Name Administration Dates Next Due COVID-19 mRNA, LNP-s, No Pre serve, 2-Dose Series (Moderna) 04/09/2021,09/23/2020,08/19/2020 COVID-19, LNP-s, No Preserve , Espinoza-sucrose, Ages 12+ (Pfizer) 01/08/2022 HEPATITIS B VACCINE, RECOMB, 20 MCG/ML, ADULT (HEPLISAV-B) 09/05/2021,05/09/2021,04/04/2021,02/18 Hepatitis B, 20+ yrs 09/16/2018,04/14/2018,03/1104/11/2018 Pneumococcal Conjugate Vacci ne, 20-valent ([id number]) 12/02/2023(Deferred: - pt states she's already received) [...] Sign Reading Time Taken Comments Blood Pressure 118/62 05/05/2024 5:41 PM EDT Pulse 84 05/05/2024 5:41 PM EDT Temperature 36.5 C (97.7 F) 05/05/2024 5:41 PM ED T Respiratory Rate 16 05/05/2024 5:41 PM EDT Oxygen Saturation 93% 05/05/2024 5:41 PM EDT Inhaled Oxygen Concentration - - Weight 101.6 kg (224 lb) 05/05/2024 5:41 PM EDT Height 160 cm (5' 3") 05/05/2024 5:41 PM EDT Body Mass Index 39.68 05/05/2024 5:41 PM EDT documented in this encounter Functional [...] as of this encounter Progress Notes * Rosa Betts LPN - 05/05/2024 6:39 PM EDT PRE - ADMINISTRATION DOCUMENTATION Are you experiencing any cold symptoms or fever? No Have you had Guillain-Gresham Syndrome (an illness that causes paralysis) within the last 6 weeks? No Have you had the flu shot in the past? YES Have you ever had a reaction to the flu shot? No Rosa Betts LPN, 05/05/2024 6:39 PM Immunization Administration Documentation Time Out Procedure Performed: Yes Patient Identified (Ask Name/Date of ): Yes Does the patient have a fever greater than 101 degrees today? No Patient allergic to latex? No VFC Stock: No Immunization(s) verified: Yes, Immunization Name: Flu, VIS Sheet(s) given: Yes Verified Side and Site: Yes Verified Shot(s) with Parent(s)/Patient: Yes * Luis Fernando Rojas MD - 05/05/2024 5:50 PM EDT Subjective: Candi Finley is a 63 year old female. Chief Complaint Patient presents with Follow Up Pt states that she is here for a follow up HPI: 63-year-old seen today as routine care. She does regular hemodialysis under the management of Dr. Galarza. She and her had COVID dating back 2 months. Was not severe she got through of pretty easily. She has had COVID now a couple times. She also suffered a right tibial plateau fracture related to a fall Um. She did not have surgery but was nonweightbearing in a full length immobilizer for quite some time. The only been in the last 3-4 weeks that she has been walking with out caneor walker. She knows that she has to keep walking to regained some of her strength. She is not bothered with chest pain. She has not had any significant will activities. She does havesome chronic diarrhea. She is scheduled to see GI. She recently had episode of relatively mild vertigo a week or so ago. Nothing like when she was hospitalized for 5 days with vertigo in the past. She finds meclizine to maybe help some. She has done vertiginous training with physical therapy but did not find that to be helpful. Review of some of the blood work results that we have from the dialysis center includes hemoglobin A1c which dating back about 9 months has ranged from approximately 7.2 to 6.8 (these are felt to be very good). Her hemoglobin is consistently right around 8.6-9. I did not see any lipid profile or TSH thyroid testing done through the dialysis unit. 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 Type 2 diabetes mellitus with hemoglobin A1c goal of less than 7.0% ([facility]) Vitamin D deficiency HTN, goal below 140/90 Major depressive disorder, recurrent episode, moderate with seasonal pattern (HCC) Rosacea Hypothyroidism (acquired) Mitral annular calcification Type 2 diabetes mellitus with diabetic polyneuropathy, with long-term current use of insulin ([facility]) Chronic diastolic heart failure (HCC) History of endometrial cancer Hyperparathyroidism, secondary renal (HCC) MINISTERIO on CPAP Stable proliferative diabetic retinopathy of both eyes associated with type 2 diabetes mellitus ([facility]) SALVADOR inhibitor intolerance SSS (sick sinus syndrome) ([facility]) PAT (paroxysmal atrial tachycardia) ([facility]) Gastroesophageal reflux disease without esophagitis Hypertensive 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 congestive heart failure and stage 5 chronic kidney disease on chronic dialysis ([facility]) Morbid obesity with BMI of 40.0-44.9, adult (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 Aspirin 81 MG Oral Tablet Chewable Take 1 Tab by mouth at bedtime. with food. 90 Tab 3 FreeStyle Jennifer 2 Sensor Use as directed. Replace every 14 days (supplied through [facility]) 7 Each 3 CPAP [...] TWO CAPSULES WITH SNACKS 1300 Capsule 3 Abrysvo 120 MCG/0.5ML Intramuscular Solution Reconstituted [...] Kit Use as directed. 1 Kit 0 Nitroglycerin 0.4 MG Sublingual Tablet Sublingual (Nitrostat) Place under the tongue 1 Tablet as needed for Pain, Chest. May repeat 3 times. If chest pain continues, call 911. (Patient not taking: Reported on 03/30/2024) 25 Tablet 11 Current Facility-Administered Medications Medication Dose Route Frequency Provider Last Rate Last Admin vitamin b-12 (Cyanocobalamin) inj 1,000 mcg 1,000 mcg Intramuscular Q12 Weeks Luis Fernando Rojas MD 1,000 mcg at 01/02/23 1242 vitamin b-12 (Cyanocobalamin) inj 1,000 mcg 1,000 mcg Intramuscular Q12 Weeks Cleo Fonseca PA-C Review of patient's allergies indicates: Allergen Reactions Salvador Inhibitors Other (Please comment) and Cough HyperKalemia Objective: BP 118/62 | Pulse 84 | Temp 36.5 C (97.7 F) (Tympanic) | Resp 16 | Ht 1.6 m (5' 3") | Wt 101.6 kg (224 lb) | SpO2 93% | BMI 39.68 kg/m | BSA 2.12 m Physical Exam: CONST: alert, pleasant, no acute distress HEAD: normocephalic, atraumatic NECK: supple, soft, no adenopathy Eyes - PERRLA, EOM'I OROPHARYNX: clear, no swelling or erythema, moist CV: regular rate and rhythm, no murmur CHEST: clear to auscultation bilaterally, no rales or wheezing ABD: soft, non tender, non distended, no masses or hepatosplenomegaly EXT: no edema, no joint swelling or deformities, NEURO: AAOx3, no gross focal deficits, cerebellar signs normal, affect appropriate MENTAL STATUS: no evidence of thought disorder, no delusional thought, no evidence of paranoia, thought is non-tangential. 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 She will continue glargine 16 units daily. Major depressive disorder, single episode, moderate (HCC)-continue citalopram 20 mg daily Hyperparathyroidism, secondary renal (HCC)-as per Dr. Barahona Dyslipidemia, goal LDL below 100-continue atorvastatin 40 mg daily. She is nearly impossible venous stick for lab work. As noted above, she gets blood work on a regular basis at the dialysis unit but is extremely difficult to get blood from for regular lab test. So: I did send Dr. Hernandez message seen if there is any way that he could order TSH lipid profile once a year. She also should have a B12 level done. Follow Up: Return in about 6 months (around 11/03/2024). Luis Fernando Rojas MD documented in this encounter Nursing Notes * Rosa Betts LPN - 05/05/2024 5:41 PM EDT Candi Finley is a 63 year old female who presents today for Chief Complaint Patient presents with Follow Up Pt states that she is here for a follow up documented in this encounter Plan of Treatment Upcoming Encounters Date Type Department Care Team (Late st Contact Info) Description 06/01/2024 10:00 AM EST Home Visit [facility] [place], [address] [place] [address] Heidi Garcia, RN [address] [place] [address] 06/02/2024 9:20 AM EST Office Visit Nutrition & Weight Management, [facility] [address] [facility] [place] [address] Cleo Fonseca PA-C [address] [place] [address] 06/03/2024 8:15 AM EST Cardiac Studies Cardiac Studies, [facility] [address] [facility] [place] [address] 07/01/2024 10:00 AM EST Office Visit Podiatry [facility] [address] [facility] [place] [address] Calli Avila, DAIANA [address] [facility] [place] [address] 08/10/2024 8:00 AM EST Office Visit Gastroenterology, [facility] [address] [facility] [place] [address] Emi Queen CRNP [facility] [place] [address] Scheduled Procedures Name Priority Associated Diagnoses Date/Ti [...] Additional history exists Depression Monitoring 08/14/2024 08/14/2023 Diabetic Eye Exam 01/04/2025 01/05/2024, , 12/13/2021, [...] this encounter Medical Devices Implanted Type Area [employer] Nurse Device Identifier Shelf Expiration Date Model / Serial / Lot Coil Vortex 35 Pltinm [id number] - [id number] Implanted:Qty: 1 on 11/27/2021 by Sterling Cates MD [place] [facility] Right: Upper Arm [employer] : NEURO INTR [id number] 08/15/2024 [id number] / / [id number] Coil Vortex 35 Pltinm [id number] - [id number] Implanted:Qty: 1 on 11/27/2021 by Sterling Cates MD at [place] [facility] [place]: Upper Arm [employer] : NEURO INTR [id number] 08/15/2024 [id number] / / [id number] Coil Vortex 35 Pltinm [id number] - [id number] Implanted:Qty: 1 on 11/27/2021 by Sterling Cates MD at [place] [facility] Right: Upper Arm [employer] : NEURO INTR [id number] 08/15/2024 [id number] / / [id number] Coil Vortex 35 Pltinm [id number] - [id number] Implanted:Qty: 1 on 11/27/2021 by Sterling Cates MD at [place] [facility] Right: Upper Arm [employer] : NEURO INTR [id number] 05/16/2024 [id number] / / [id number] Azur 35 Detachable 5mm 11cm - [id number] Implanted:Qty: 1 on 03/19/2022 by Jose Devine MD at [place] [facility] Right: Wrist [employer] [id number] 10/18/2025 [id number] / / [id number] Azur 35 Detachable 5mm 11cm - [id number] Implanted:Qty: 1 on 03/19/2022 by Jose Devine MD at [place] [facility] Right: Wrist [employer] [id number] 06/19/2026 [id number] / / [id number] Mesh Flat Sheet 10x14 [id number] - [id number] Implanted:Qty: 1 on 12/11/2022 by Eros Dash MD at [place] [facility] N/A: Abdomen CR BARD : DAVOL [id number] 06/17/2027 [id number] / / [id number] documented as of this encounter Visit Diagnoses Diagnosis Need for prophylactic vaccination and inoculation against influenza- Primary 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, with long-term current use of insulin (HCC) Major depressive disorder, single episode, moderate (HCC) Major depressive disorder, single episode, moderate Hyperparathyroidism, secondary renal (HCC) Secondary hyperparathyroidism (of renal origin) Dyslipidemia, goal LDL below 100 Other and unspecified hyperlipidemia documented in this encounter Advance Directives Documents on File Type Date Recorded Patient Kelp Gatherer Saranya FIGUEROA 11/13/2020 POLST NASREEN SHAW ORDERS [...] on File Name Relationship Healthcare Agent [facility] Communication Zhen Finley Spouse Health Care Agent Care Teams Cleaning Matron Relationship Specialty Start Date End Date Luis Fernando Rojas MD [address] [place] [id number] PCP - General Family Medicine 09/23/16 documented as of this encounter
--- OUTSIDE RECORDS SUMMARY | 2024-07-08 02:55 | External Medical Summary | Summary of Care ---
Author Name Unknown Organization [facility] Address [address] [place] [address] Phone [phone] Care Team Providers Care Early Childhood Services Coordinator Name Role Phone Luis Fernando Rojas MD Primary Care Provider [phone] Reason for Referral * Precert (Within 10 days (routine)) - Authorized Specialty Diagnoses / Procedures Referred By Contlucia t Referred To Contact Radiology Diagnoses End stage renal disease on dialysis (HCC) Procedures IR VENOUS FISTULOGRAM Sameer Hassan MD [address], [place] [address] Referral ID Status Reason Start Date Expiration Date V isits Requested Visits Authorized [id number] Authorized 05/26/2024 999 999 Reason for Visit * Reason Onset Date Comments Referral Requested by Specialist 05/25/2024 Encounter Details Date Type Department Care Team (Late st Contact Info) Description 05/25/2024 Telephone Nephrology, [facility] [address] [place] [address] Sameer Hassan MD [address] [facility] [place] [address] Referral Requested by Specialist Allergies Active Allergy Reactions Criticality Noted Date [...] dialysis, with long-term current use of insulin ([facility]) Take 1 Tab by mouth at bedtime. with food. 90 Tab 3 02/16/2021 Active FreeStyle Jennifer 2 Sensor Use as directed. Replace every 14 days (supplied through [facility]) 7 Each 3 05/17/2021 Active [...] A1c goal of less than 7.0% ([facility]) Use 4 times daily with insulin 400 [...] A1c goal of less than 7.0% ([facility]) Inject 14 units with breakfast, 4 units [...] by mouth in the morning. 03/23/2024 Active YieldBuildTouch Verio In Vitro Strip (Glucose Blood) To test blood sugar 4 times daily. 400 Strip 1 04/20/2024 Active ItsOnuch Delica Lancets 33G To test blood sugar 4 times daily. 400 Each 1 04/20/2024 Active Compumatrix Verio w/Device Kit Use as directed. 1 Kit 04/20/2024 Active Hospital, Clinic, or Other Facility Administered Medication Ordered Dose Route Frequency Start Date End Date Status vitamin b-12 (Cyanocobalamin) inj 1,000 mcgIndications:S/P gastric bypass 1000 mcg IM [id number] 10/15/2022 07/19/2025 Active vitamin b-12 (Cyanocobalamin) inj 1,000 mcgIndications:Morbid obesity with BMI of 40.0-44.9, adult (HCC),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 [id number] 10/17/2023 12/11/19 25 Active documented as of [...] 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 10/15/2022 MOR[facility] RESEARCH OTHER*[id number] 01/01/2022 S/P gastric bypass 01/01/2022 Marginal ulcer [...] T-tube placement 04/16/2017 05/29/2017 [employer] Other*[id number] 04/13/2013 08/27/2016 Overview: Study Title: Genomic Markers for Patients with Cardiovascular Disease Project # [id number] Assistant Gm Of Content & Delivery: Siena Laws MD [phone] Hypertensive heart disease 03/25/2013 1 07/29/2016 Neuropathy, [...] yrs 09/16/2018,04/14/2018,03/1104/11/2018 Pneumococcal Conjugate Vacci ne, 20-valent ([id number]) 12/02/2023(Deferred: - pt states she's already received) [...] encounter Miscellaneous Notes * Telephone Encounter - Mary Dumont RN - 05/25/2024 7:57 AM EST Fistulogram referral placed per request of Dr Hassan. documented in this encounter Plan of Treatment Upcoming Encounters Date Type Department Care Team (Late st Contact Info) Description 06/01/2024 10:00 AM EST Home Visit Luis A at [facility] [address] [place] [address] Heidi Garcia RN [address] [place] [address] 06/02/2024 9:20 AM EST Office Visit Nutrition & Weight Management, [facility] [address] [facility] [place] [address] Cleo Fonseca PA-C [address] [place] [address] 06/03/2024 8:15 AM EST Cardiac Studies Cardiac Studies, [facility] [address] [facility] [place] [address] 06/24/2024 2:30 PM EST Appointment Radiology [facility], [address] [place] [address] 07/01/2024 10:00 AM EST Office Visit Podiatry [facility] [address] [facility] [place] [address] Calli Avila DPM [address] [facility] [place] [address] 07/13/2024 10:00 AM EST Imaging Radiology [facility] [facility] [place] [address] [facility] [place] [address] 08/10/2024 8:00 AM EST Office Visit Gastroenterology, [facility] [address] [facility] [place] [address] Emi Queen CRNP [address] [place] [address] Scheduled Orders Name Type Priority Associated Diagnoses Orde r Schedule IR VENOUS FISTULOGRAM Medical Imaging Routine End stage renal disease on dialysis (HCC) Expected: 05/26/2024, Expires: 06/24/2025 Scheduled Procedures Name Priority Associated Diagnoses Date/Ti [...] this encounter Medical Devices Implanted Type Area Hand Pattern Marker Device Identifier Shelf Expiration Date Model / Serial / Lot Coil Vortex 35 Pltinm [id number] - [id number] Implanted:Qty: 1 on 11/27/2021 by Sterling Cates MD at [place] [facility] [place] Right: Upper Arm [employer] : NEURO INTR [id number] 08/15/2024 [id number] / / [id number] Coil Vortex 35 Pltinm [id number] - [id number] Implanted:Qty: 1 on 11/27/2021 by Sterling Cates MD at [place] [facility] [place] Right: Upper Arm [employer] : NEURO INTR [id number] 08/15/2024 [id number] / / [id number] Coil Vortex 35 Pltinm [id number] - [id number] Implanted:Qty: 1 on 11/27/2021 by Sterling Cates MD at [place] [facility] [place] Right: Upper Arm [employer] : NEURO INTR [id number] 08/15/2024 [id number] / / [id number] Coil Vortex 35 Pltinm [id number] - [id number] Implanted:Qty: 1 on 11/27/2021 by Sterling Cates MD at [place] [facility] [place] Right: Upper Arm [employer] : NEURO INTR [id number] 05/16/2024 [id number] / [id number] Azur 35 Detachable 5mm 11cm - [id number] Implanted:Qty: 1 on 03/19/2022 by Jose Devine MD at [place] [facility] [place] Right: Wrist [employer] [id number] 10/18/2025 [id number] / / [id number] Azur 35 Detachable 5mm 11cm - [id number] Implanted:Qty: 1 on 03/19/2022 by Jose Devine MD at [place] [facility] [place] Right: Wrist [employer] [id number] 06/19/2026 [id number] / / [id number] Mesh Flat Sheet 10x14 [id number] - [id number] Implanted:Qty: 1 on 12/11/2022 by Eros Dash MD at [place] [facility] [place] N/A: Abdomen CR BARD : DAVOL [id number] 06/17/2027 [id number] / / [id number] documented as of this encounter Visit Diagnoses Diagnosis End stage renal disease on dialysis (HCC)- Primary End stage renal disease Screening mammogram for breast cancer documented in this encounter Advance Directives Documents on File Type Date Recorded Patient Critical Care Physician Assistant Expl anation POLST 11/13/2020 POLST [place] [...] Finley Spouse Health Care Agent Care Teams Early Childhood Services Coordinator Relationship Specialty Start Date End Date Luis Fernando Rojas MD [address] [place] [facility] [place] [address] PCP - General Family Medicine 09/23/16 documented as of this encounter
--- OUTSIDE RECORDS SUMMARY | 2024-07-08 02:55 | External Medical Summary | Summary of Care ---
Author Name Unknown Organization [facility] Address [address] [place] [address] Phone [phone] Care Team Providers Care Molasses Coloring Operator Name Role Phone Luis Fernando Rojas MD Primary Care Provider Reason for Visit * Reason Onset Date Comments Test Results 02/17/2024 FYI 02/17/2024 Encounter Details Date Type Department Care Team (Late st Contact Info) Description 02/17/2024 Telephone [facility] [address] [place] [address] Luis Fernando Rojas MD [address] [place] [address] Test Results; Allergies Active Allergy Reactions Criticality Noted Date Comments Salvador Inhibitors Other (Please comment),Cough High HyperKalemia documented as of this encounter (statuses as of 05/18/2024) Medications Medication Sig Dispensed Refills Start Date [...] less than 7.0% ([facility]) Inject 14 units with breakfast, 4 units with lunch and 16 units with supper + CF 1:25 over 150. Max dose of 45 units per day 30 mL 4 10/28/2023 Active Diclofenac Sodium 1 % External Gel (Voltaren) Apply topically to affected area 3 times a day as needed for Pain. 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 10/15/2022 [facility]ARCH OTHER*[id number] 01/01/2022 S/P gastric bypass 01/01/2022 Marginal ulcer [...] as of this encounter (statuses as of 05/18/2024) Resolved Problems Problem Noted Date Diagnosed Date [...] 10/08/2022 Insulin long-term use 11/19/20182018 Overview: 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 11/19/2018 10/08/2022 [...] T-tube placement 04/16/2017 05/29/2017 [employer] Other*[id number] 04/13/2013 08/27/2016 Overview: Study Title: Genomic Markers for Patients with Cardiovascular Disease Project # [id number] Tobacco Sampler: Siena Laws MD [phone] Hypertensive heart disease 03/25/2013 1 07/29/2016 Neuropathy, [...] as of this encounter (statuses as of 05/18/2024) Immunizations Name Administration Dates Next Due COVID-19 mRNA, LNP-s, No Pre serve, 2-Dose Series (Moderna) 04/09/2021,09/23/2020,08/19/2020 COVID-19, LNP-s, No Preserve , Espinoza-sucrose, Ages 12+ (Pfizer) 01/08/2022 HEPATITIS B VACCINE, RECOMB, 20 MCG/ML, ADULT (HEPLISAV-B) 09/05/2021,05/09/2021,04/04/2021,02/18 Hepatitis B, 20+ yrs 09/16/2018,04/14/2018,03/1104/11/2018 Pneumococcal Conjugate Vacci ne, 20-valent ([id number]) 12/02/2023(Deferred: - pt states she's already received) [...] No 08/14/2023 Does the household have a [facility] source of income? (Household - for [...] encounter Miscellaneous Notes * Telephone Encounter - Vickie Bhat LPN - 02/17/2024 11:58 AM EDT HH PT/OT/ST Eval Start of Care/Continuation Amauri PT, Calling from: [facility] Positive covid on 02/11/24 Narrative: Amauri PT calling from [facility]. Has to call and let the doctor know patient tested positive for covid on 02/11/24 documented in this encounter Plan of Treatment Upcoming Encounters Date Type Department Care Team (Late st Contact Info) Description 05/20/2024 10:45 AM EDT Office Visit Dermatology [facility] [address] [facility] [place] [address] Kevyn Finley MD 200 [facility] [place] [address] 06/01/2024 10:00 AM EST Home Visit [facility] [place], [facility] [address] [address] Heidi Garcia RN [address] [address] 06/02/2024 9:20 AM EST Office Visit Nutrition & Weight Management, [facility] [address] [address] Cleo Fonseca PA-C [address] [address] 06/03/2024 8:15 AM EST Cardiac Studies Cardiac Studies, [facility] [address] [address] 07/01/2024 10:00 AM EST Office Visit Podiatry [facility] [address] [place] [address] Calli Avila DPM [address] [place] [address] 08/10/2024 8:00 AM EST Office Visit Gastroenterology, [facility] [address] [place] [address] Emi Queen CRNP [address] [place] [address] Scheduled Procedures Name Priority Associated Diagnoses Date/Ti [...] encounter Medical Devices Implanted Type Area Public Safety Police Device Identifier Shelf Expiration Date Model / Serial / Lot Coil Vortex 35 Pltinm [id number] - [id number] Implanted:Qty: 1 on 11/27/2021 by Sterling Cates MD at OR [facility] Right: Upper Arm [employer] : NEURO INTR [id number] 08/15/2024 [id number] Coil Vortex 35 Pltinm [id number] - [id number] Implanted:Qty: 1 on 11/27/2021 by Sterling Cates MD at OR [facility] Right: Upper Arm [employer] : NEURO INTR [id number] 08/15/2024 [id number] Coil Vortex 35 Pltinm [id number] - [id number] Implanted:Qty: 1 on 11/27/2021 by Sterling Cates MD at OR [facility] Right: Upper Arm [employer] : NEURO INTR [id number] 08/15/2024 [id number] Coil Vortex 35 Pltinm [id number] - [id number] Implanted:Qty: 1 on 11/27/2021 by Sterling Cates MD at OR [facility] Right: Upper Arm [employer] : NEURO INTR [id number] 05/16/2024 [id number] 1 / [id number] Azur 35 Detachable 5mm 11cm - [id number] Implanted:Qty: 1 on 03/19/2022 by Jose Devine MD at OR [facility] Right: Wrist [employer] [id number] 10/18/2025 [id number] / / [id number] Azur 35 Detachable 5mm 11cm - [id number] Implanted:Qty: 1 on 03/19/2022 by Jose Devine MD at OR [facility] Right: Wrist [employer] [id number] 06/19/2026 [id number] / / [id number] Mesh Flat Sheet 10x14 [id number] - [id number] Implanted:Qty: 1 on 12/11/2022 by Eros Dash MD at OR [facility] N/A: Abdomen CR BARD : DAVOL [id number] 06/17/2027 [id number] / / [id number] documented as of this encounter Additional Health Concerns Infection Onset Date Last Indicated Resolved Time Gastrointestinal Rule-Out 03/26/2024 03/26/2024 7:06 PM EDT C. difficile Rule-Out 03/26/2024 03/26/20242023 2:10 PM EDT documented as of this encounter Advance Directives Documents on File Type Date Recorded Patient Junior Designer Expl anation POLST 11/13/2020 POLST PENNSYLVA VALERIA [...] Agents on File Name Relationship Healthcare Agent [facility] p Communication Zhen Finley Spouse Health Care Agent Care Teams Molasses Coloring Operator Relationship Specialty Start Date End Date Luis Fernando Rojas MD [address] [place] [address] PCP - General Family Medicine 09/23/16 documented as of this encounter
--- OUTSIDE RECORDS SUMMARY | 2024-07-08 02:55 | External Medical Summary | Summary of Care ---
Author Name Unknown Organization [facility] Address [address] [place] [address] Phone [phone] Care Team Providers Care Farm Boss Name Role Phone Luis Fernando Rojas MD Primary Care Provider [phone] Reason for Visit * Reason Onset Date Comments TRIAGE 05/25/2024 Encounter Details Date Type Department Care Team (Late st Contact Info) Description 05/25/2024 Telephone Vascular Surg [facility] [address] [place], [place] [id number] Services, Scheduling [address] [place] [address] TRIAGE Allergies Active Allergy Reactions Criticality Noted [...] 7.0% ([facility]) Inject 16 units subcutaneously every day. 30 [...] by mouth in the morning. 03/23/2024 Active IntelliBatt Verio In Vitro Strip (Glucose Blood) To test blood sugar 4 times daily. 400 Strip 1 04/20/2024 Active WhiteFenceuch Delica Lancets 33G To test blood sugar 4 times daily. 400 Each 1 04/20/2024 Active IsoPlexisio w/Device Kit Use as directed. 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 10/15/2022 [facility] OTHER*[id number] 01/01/2022 S/P gastric bypass 01/01/2022 Marginal ulcer [...] T-tube placement 04/16/2017 05/29/2017 [employer] Other*[id number] 04/13/2013 08/27/2016 Overview: Study Title: Genomic Markers for Patients with Cardiovascular Disease Project # [id number] Field Logistics Coordinator: Siena Laws MD [phone] Hypertensive heart disease 03/25/2013 1 07/29/2016 Neuropathy, [...] yrs 09/16/2018,04/14/2018,03/1104/11/2018 Pneumococcal Conjugate Vacci ne, 20-valent (Jdkvpbw16) 12/02/2023(Deferred: - pt states she's already received) [...] I called and spoke with Hina at [phone] and she states they called to set up the fistulagram but they were told they need a referral or she could not be seen. She states that she is having decreased access flow and decreased clearances. Secretaries, Please set patient up for a [...] 10:00 AM EST Home Visit [facility] [address] [address] Heidi Garcia, RN [address] [address] 06/02/2024 9:20 AM EST Office Visit Nutrition & Weight Management, [facility] [address] [address] Cleo Fonseca PA-C [address] [address] 06/03/2024 8:15 AM EST Cardiac Studies Cardiac Studies, [facility] [address] [address] 06/24/2024 2:30 PM EST Appointment Radiology [facility], [address] [place] [address] 07/01/2024 10:00 AM EST Office Visit Podiatry [facility] [address] [place] [address] Calli Avila DPM [address] [place] [address] 07/13/2024 10:00 AM EST Imaging Radiology [facility] [place] [address] [facility] [place] [address] 08/10/2024 8:00 AM EST Office Visit [facility]enterology, [facility] [place] [address] Emi Queen CRNP [address] [place] [address] Scheduled Procedures Name Priority Associated Diagnoses Date/Ti [...] this encounter Medical Devices Implanted Type Area Renewals Specialist Device Identifier Shelf Expiration Date Model / Serial / Lot Coil Vortex 35 Pltinm [id number] - [id number] Implanted:Qty: 1 on 11/27/2021 by Sterling Cates MD at OR [facility] Right: Upper Arm [employer] : NEURO INTR [id number] 08/15/2024 [id number] Coil Vortex 35 Pltinm [id number] - [id number] Implanted:Qty: 1 on 11/27/2021 by Sterling Cates MD at OR [facility] Right: Upper Arm [employer] : NEURO INTR [id number] 08/15/2024 [id number] Coil Vortex 35 Pltinm [id number] - [id number] Implanted:Qty: 1 on 11/27/2021 by Sterling Cates MD at OR [facility] Right: Upper Arm [employer] : NEURO INTR [id number] 08/15/2024 [id number] / / [id number] Coil Vortex 35 Pltinm [id number] - [id number] Implanted:Qty: 1 on 11/27/2021 by Sterling Cates MD at OR [facility] Right: Upper Arm [employer] : NEURO INTR [id number] 05/16/2024 [id number] / / [id number] Azur 35 Detachable 5mm 11cm - [id number] Implanted:Qty: 1 on 03/19/2022 by Jose Devine MD at OR [facility] Right: Wrist [employer] [id number] 10/18/2025 [id number] / / [id number] Azur 35 Detachable 5mm 11cm - [id number] Implanted:Qty: 1 on 03/19/2022 by Jose Devine MD at OR [facility] Right: Wrist [employer] [id number] 06/19/2026 [id number] / / [id number] Mesh Flat Sheet 10x14 [id number] - [id number] Implanted:Qty: 1 on 12/11/2022 by Eros Dash MD at OR [facility] N/A: Abdomen CR BARD : DAVOL [id number] 06/17/2027 [id number] / / [id number] documented as of this encounter Advance Directives Documents on File Type Date Recorded Patient Inseam Trimmer Expl 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
--- OUTSIDE RECORDS SUMMARY | 2024-07-08 02:55 | External Medical Summary | Summary of Care ---
Author Name Unknown Organization [facility] Address [address] [place] [address] Phone [phone] Care Team Providers Care Mba Internship Name Role Phone Luis Fernando Rojas MD Primary Care Provider Reason for Visit * Reason Onset Date Comments Home Health 02/09/2024 Encounter Details Date Type Department Care Team (Late st Contact Info) Description 02/09/2024 Telephone [facility] [address] [place] [address] Luis Fernando Rojas MD [address] [place] [address] Home Health Allergies Active Allergy Reactions Criticality Noted Date Comments Salvador Inhibitors Other (Please comment),Cough High HyperKalemia documented as of this encounter (statuses as of 05/10/2024) Medications Medication Sig Dispensed Refills Start Date [...] hemoglobin A1c goal of less than 7.0% ([facility]) Inject 14 units with breakfast, 4 units with lunch and 16 units with supper + CF 1:25 over 150. 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 [id number] 10/17/2023 12/11/19 25 Active documented as of this encounter (statuses as of 05/10/2024) Active Problems Problem Noted Date Diagnosed Date [...] 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 10/15/2022 [facility] RESEARCH OTHER*[id number] 01/01/2022 S/P gastric bypass 01/01/2022 Marginal ulcer [...] as of this encounter (statuses as of 05/10/2024) Resolved Problems Problem Noted Date Diagnosed Date [...] T-tube placement 04/16/2017 05/29/2017 [employer] Other*[id number] 04/13/2013 08/27/2016 Overview: Study Title: Genomic Markers for Patients with Cardiovascular Disease Project # [id number] Biochemistry Specialist: Siena Laws MD [phone] Hypertensive heart disease 03/25/2013 1 07/29/2016 Neuropathy, [...] as of this encounter (statuses as of 05/10/2024) Immunizations Name Administration Dates Next Due COVID-19 mRNA, LNP-s, No Pre serve, 2-Dose Series (Moderna) 04/09/2021,09/23/2020,08/19/2020 COVID-19, LNP-s, No Preserve , Espinoza-sucrose, Ages 12+ (Pfizer) 01/08/2022 HEPATITIS B VACCINE, RECOMB, 20 MCG/ML, ADULT (HEPLISAV-B) 09/05/2021,05/09/2021,04/04/2021,02/18 Hepatitis B, 20+ yrs 09/16/2018,04/14/2018,03/1104/11/2018 Pneumococcal Conjugate Vacci ne, 20-valent (Wrbktjn12) 12/02/2023(Deferred: - pt states she's already received) Pneumococcal Polysaccharide PPV23 (Pneumovax) 08/30/2014,09/18/2013,07/28/2007 RSV Vac., Bivalent, Perfusio n F, Pf,0.5 Ml (Abrysvo) 08/05/2023 Seasonal Influenza Vac., MDV , IM, 0.5 mL (Fluzone) 05/21/2015,05/05/2014,04/01/2013,1010/2011,05/21/2011,04/05/2010 Seasonal Influenza Virus Vac cine, Unspecified Formulation [...] Miscellaneous Notes * Telephone Encounter - Calli Bianchi LPN - 02/09/2024 4:07 PM EDT Angelo from [facility] calling Pt requested to be seen on Thrusday to eval for PT. This is FYi documented in this encounter Plan of Treatment Upcoming Encounters Date Type Department Care Team (Late st Contact Info) Description 06/01/2024 10:00 AM EST [facility] [address] [place] [address] Heidi Garcia, RN [address] [place] [address] 06/02/2024 9:20 AM EST Office Visit Nutrition & Weight Management, [facility] [address] [place] [address] Cleo Fonseca PA-C [address] [place] [address] 06/03/2024 8:15 AM EST Cardiac Studies Cardiac Studies, [facility] [address] [place] [address] 07/01/2024 10:00 AM EST Office Visit Podiatry [facility] [address] [place] [address] Calli Avila DPM [address] [place] [address] 08/10/2024 8:00 AM EST Office Visit Gastroenterology, [facility] [address] [place] [address] Emi Queen CRNP [address] [place] [address] Scheduled Procedures Name Priority Associated Diagnoses Date/Ti [...] encounter Medical Devices Implanted Type Area Cut To Length Operator Device Identifier Shelf Expiration Date Model / Serial / Lot Coil Vortex 35 Pltinm [id number] - [id number] Implanted:Qty: 1 on 11/27/2021 by Sterling Cates MD at OR [facility] Right: Upper Arm [employer] : NEURO INTR [id number] 08/15/2024 [id number] / / [id number] Coil Vortex 35 Pltinm 242897 - [id number] Implanted:Qty: 1 on 11/27/2021 by Sterling Cates MD at OR [facility] Right: Upper Arm [employer] : NEURO INTR [id number] 08/15/2024 [id number] / / [id number] Coil Vortex 35 Pltinm [id number] - [id number] Implanted:Qty: 1 on 11/27/2021 by Sterling Cates MD at OR [facility] Right: Upper Arm [employer] : NEURO INTR [id number] 08/15/2024 [id number] / / [id number] Coil Vortex 35 Pltinm [id number] - [id number] Implanted:Qty: 1 on 11/27/2021 by Sterling Cates MD at OR [facility] Right: Upper Arm [employer] : NEURO INTR [id number] 05/16/2024 [id number] Azur 35 Detachable 5mm 11cm - [id number] Implanted:Qty: 1 on 03/19/2022 by Jose Devine MD at OR [facility] Right: Wrist Concard [id number] 10/18/2025 [id number] / / [id number] Azur 35 Detachable 5mm 11cm - [id number] Implanted:Qty: 1 on 03/19/2022 by Jose Devine MD at OR [facility] Right: Wrist Concard [id number] 06/19/2026 [id number] / / [id number] Mesh Flat Sheet 10x14 [id number] - [id number] Implanted:Qty: 1 on 12/11/2022 by Eros Dash MD at OR [facility] N/A: Abdomen CR BARD : DAVOL [id number] 06/17/2027 [id number] / / [id number] documented as of this encounter Additional Health Concerns Infection Onset Date Last Indicated Resolved Time Gastrointestinal Rule-Out 03/26/2024 03/26/2024 7:06 PM EDT C. 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
--- OUTSIDE RECORDS SUMMARY | 2024-07-08 02:55 | External Medical Summary ---
Author Name Unknown Address Unknown Organization K01:[facility] - [address] [facility] [address] Laboratory Report Ordering Provider Test Date Status HUSEYIN MATHIAS 05/07/2024 15:07:00 Final Dried Blood Spot specimens h ave been validated for general health screening purposes only. This test should not be used for diagnosis or medical treatment without confirmation by other medically established means. The use of HbA1c to monitor glycemic status is based on normal hemoglobin and HbA composition, and should not be used in patients with abnormal hemoglobin that affects the half life of the red blood cell or the in vivo glycation rates.

This test was developed and its performance characteristics determined by [employer]. It has not been cleared or approved by the [place] Food and Drug Administration.

This test was performed as part of a [facility] fulfillment initiative.
null Observation Date Value Abnormality Reference (Units ) Status Hemoglobin A1c/Hemoglobin.total in DBS 05/07/2024 15:07:00 7.7 Above high normal 4.0-5.6 (%) Final Glucose, estimated average 05/07/2024 15:07:00 174 Above high normal <126 (mg/dL) Final Performing Location [facility] - [address] [facility] [address]
--- OUTSIDE RECORDS SUMMARY | 2024-07-08 02:55 | External Medical Summary | Summary of Care ---
Author Name Unknown Organization [facility] Address [address] [place] [address] Phone [phone] Care Team Providers Care Spare Parts Clerk Name Role Phone Luis Fernando Rojas MD Primary Care Provider Reason for Visit * Reason Onset Date Comments Medication Refill 04/09/2024 Encounter Details Date Type Department Care Team (Late st Contact Info) Description 04/09/2024 Telephone Pharmacy [facility] [address] [place] [address] [facility] [address] [place] [address] Medication Refill (/) Allergies Active Allergy Reactions Criticality Noted Date Comments Salvador Inhibitors Other (Please comment),Cough High HyperKalemia documented as of this encounter (statuses as of 05/06/2024) Medications Medication Sig Dispensed Refills Start Date [...] hemoglobin A1c goal of less than 7.0% ([facility]) Inject 14 units with breakfast, 4 units [...] by mouth in the morning. 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 10/15/2022 MORFIN RESEARCH OTHER*[id number] 01/01/2022 S/P gastric bypass 01/01/2022 Marginal ulcer [...] triglycerides Last Assessment & Plan: Continues on of , updated medication rec as it said 40 documented as of this encounter (statuses as of 05/06/2024) Resolved Problems Problem Noted Date Diagnosed Date [...] 10/08/2022 Insulin long-term use 11/19/20182018 Overview: 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 (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 insulin 11/19/2018 10/08/2022 Morbid [...] T-tube placement 04/16/2017 05/29/2017 [employer] Other*[id number] 04/13/2013 08/27/2016 Overview: Study Title: Genomic Markers for Patients with Cardiovascular Disease Project # [id number] Loading Machine Adjuster: Siena Laws MD [phone] Hypertensive heart disease 03/25/2013 1 07/29/2016 Neuropathy, [...] as of this encounter (statuses as of 05/06/2024) Immunizations Name Administration Dates Next Due COVID-19 mRNA, LNP-s, No Pre serve, 2-Dose Series (Moderna) 04/09/2021,09/23/2020,08/19/2020 COVID-19, LNP-s, No Preserve , Espinoza-sucrose, Ages 12+ (Pfizer) 01/08/2022 HEPATITIS B VACCINE, RECOMB, 20 MCG/ML, ADULT (HEPLISAV-B) 09/05/2021,05/09/2021,04/04/2021,02/18 Hepatitis B, 20+ yrs 09/16/2018,04/14/2018,03/1104/11/2018 Pneumococcal Conjugate Vacci ne, 20-valent ([id number]) 12/02/2023(Deferred: - pt states she's already received) [...] Notes * Telephone Encounter - Vera Langston RPh - 05/06/2024 9:30 AM EDT Submitted PCP note from 05/05 on TH platform. Note that A1c is only listed from PCP, not official lab result documents. Vera Langston PharmD, CHIQUI Clinical Pharmacist Medication Therapy Disease Management 05/06/2024, 9:31 AM * Telephone Encounter - Hanna Dinero RPh - 04/09/2024 1:10 PM EDT Received message from [employer]. [employer]aja needs a new order for Freestyle Jennifer sensors. A1C is> 1 year old. Sent Ag[employer] message to patient making her aware updated A1C is needed so that we can submit an order to [facility] for new sensors. Hanna Dinero RPh, PharmD, BCACP Clinical Pharmacist Medication Therapy Management Clinic 04/09/24, 1:12 PM documented in this encounter Plan of Treatment Upcoming Encounters Date Type Department Care Team (Late st Contact Info) Description 06/01/2024 10:00 AM EST Home Visit Luis A at Home, [facility] [address] [place] [address] Heidi Garcia RN [address] [place] [address] 06/02/2024 9:20 AM EST Office Visit Nutrition & Weight Management, [facility] [address] [address] Cleo Fonseca PA-C [address] [place] [address] 06/03/2024 8:15 AM EST Cardiac Studies Card[facility] Studies, [facility] [place] [address] 07/01/2024 10:00 AM EST Office Visit Podiatry [facility] [address] [facility] [place] [address] Calli Avila DPM [address] [place] [address] 08/10/2024 8:00 AM EST Office Visit Gastroenterology, [facility] [address] [place] [address] Emi Queen CRNP [address] [place] [address] Scheduled Procedures Name Priority Associated Diagnoses Date/Ti [...] this encounter Medical Devices Implanted Type Area Dermatology Specialist Device Identifier Shelf Expiration Date Model / Serial / Lot Coil Vortex 35 Pltinm [id number] - [id number] Implanted:Qty: 1 on 11/27/2021 by Sterling Cates MD at [place] Right: Upper Arm [employer] : NEURO INTR [id number] 08/15/2024 [id number] / / [id number] Coil Vortex 35 Pltinm [id number] - [id number] Implanted:Qty: 1 on 11/27/2021 by Sterling Cates MD at [place] Right: Upper Arm [employer] : NEURO INTR [id number] 08/15/2024 [id number] / / [id number] Coil Vortex 35 Pltinm [id number] - [id number] Implanted:Qty: 1 on 11/27/2021 by Sterling Cates MD at [place] Right: Upper Arm [employer] : NEURO INTR [id number] 08/15/2024 [id number] / / [id number] Coil Vortex 35 Pltinm [id number] - [id number] Implanted:Qty: 1 on 11/27/2021 by Sterling Cates MD at [place] Right: Upper Arm [employer] : NEURO INTR [id number] 05/16/2024 [id number] / / [id number] Azur 35 Detachable 5mm 11cm - [id number] Implanted:Qty: 1 on 03/19/2022 by Jose Devine MD at [place] Right: Wrist [employer] [id number] 10/18/2025 [id number] / / [id number] Azur 35 Detachable 5mm 11cm - [id number] Implanted:Qty: 1 on 03/19/2022 by Jose Devine MD at [place] Right: Wrist [employer] [id number] 06/19/2026 [id number] / / [id number] Mesh Flat Sheet 10x14 [id number] - [id number] Implanted:Qty: 1 on 12/11/2022 by Eros Dash MD at OR [place] N/A: Abdomen CR BARD : DAVOL [id number] 06/17/2027 [id number] / / [id number] documented as of this encounter Visit Diagnoses Diagnosis Type 2 diabetes mellitus with hemoglobin A1c goal of less than 7.0% (HCC)- Primary documented in this encounter Advance Directives Documents on File Type Date Recorded Patient Marketing Communications Leader Expl anation POLST 11/13/2020 POLST PEN[place]YLVA [...] Spouse Health Care Agent Care Teams Spare Parts Clerk Relationship Specialty Start Date End Date Luis Fernando Rojas MD [address] [place] [address] PCP - General Family Medicine 09/23/16 documented as of this encounter
--- OUTSIDE RECORDS SUMMARY | 2024-07-08 02:56 | External Medical Summary | Summary of Care ---
Author Name Unknown Organization [facility] Address [address] [place] [address] Phone [phone] Care Team Providers Care Therapeutic Recreation Assistant Name Role Phone Luis Fernando Rojas MD Primary Care Provider [phone] Reason for Visit * Reason Onset Date Comments Medication Refill 04/09/2024 Encounter Details Date Type Department Care Team (Late st Contact Info) Description 04/09/2024 Telephone Pharmacy [facility] [address] [place] [address] [facility] [address] [place] [address] Medication Refill (/) Allergies Active Allergy Reactions Criticality Noted Date Comments Salvador Inhibitors Other (Please comment),Cough High HyperKalemia documented as of this encounter (statuses as of 04/09/2024) Medications Medication Sig Dispensed Refills Start Date [...] A1c goal of less than 7.0% ([facility]) Inject 14 units with breakfast, 4 units [...] 1,000 mcgIndications:S/P gastric bypass 1000 mcg IM [id number] 10/15/2022 07/19/2025 Active vitamin b-12 (Cyanocobalamin) inj 1,000 mcgIndications:Morbid obesity with BMI of 40.0-44.9, adult ([facility]),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 [id number] 10/17/2023 12/11/19 25 Active documented as of this encounter (statuses as of 04/09/2024) Active Problems Problem Noted Date Diagnosed Date [...] 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 10/15/2022 [facility] RESEARCH OTHER*[id number] 01/01/2022 S/P gastric bypass 01/01/2022 Marginal ulcer [...] as of this encounter (statuses as of 04/09/2024) Resolved Problems Problem Noted Date Diagnosed Date [...] Insulin long-term use 11/19/20182018 Overview: Duplicate senior living (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 insulin 11/19/2018 10/08/2022 Morbid [...] T-tube placement 04/16/2017 05/29/2017 [employer] Other*[id number] 04/13/2013 08/27/2016 Overview: Study Title: Genomic Markers for Patients with Cardiovascular Disease Project # [id number] Halal Meat Packer: Siena Laws MD [phone] Hypertensive heart disease 03/25/2013 1 07/29/2016 Neuropathy, [...] as of this encounter (statuses as of 04/09/2024) Immunizations Name Administration Dates Next Due COVID-19 mRNA, LNP-s, No Pre serve, 2-Dose Series (Moderna) 04/09/2021,09/23/2020,08/19/2020 COVID-19, LNP-s, No Preserve , Espinoza-sucrose, Ages 12+ (StrongView) 01/08/2022 HEPATITIS B VACCINE, RECOMB, 20 MCG/ML, ADULT (HEPLISAV-B) 09/05/2021,05/09/2021,04/04/2021,02/18 Hepatitis B, 20+ yrs 09/16/2018,04/14/2018,03/1104/11/2018 Pneumococcal Conjugate Vacci ne, 20-valent (Yqqdorp58) 12/02/2023(Deferred: - pt states she's already received) Pneumococcal Polysaccharide PPV23 (Pneumovax) 08/30/2014,09/18/2013,07/28/2007 RSV Vac., Bivalent, Perfusio n F, Pf,0.5 Ml (Abrysvo) 08/05/2023 Seasonal Influenza Virus Vac cine, Unspecified Formulation 04/20/2022,04/12/2020,04/15/2019,03/22,05/29/2017,04/23/2016,03/21/20 16,05/05/2014,04/01/2013,04/23/2012,1 07/21/2010,04/05/2010 Seasonal Influenza, PF, 6 M & above, IM , (FluLaval or Fluzone) 05/08/2021,04/12/2020,04/15/2019,03/22,05/29/2017 Seasonal Influenza, Quadriva lent Hd (Fluzone Hd) 04/17/2023 Seasonal Influenza, Quadriva lent, No Preserve, IM 04/23/2016 Seasonal Influenza, Trivalen t, (IIV3), with Preserv, (Fluzone) 05/21/2015,05/05/2014,04/01/2013,10/2011,05/21/2011,04/05/2010 TD, Preservative Free 04/12/2020 TDAP (age [...] encounter Miscellaneous Notes * Telephone Encounter - Hanna Dinero RPh - 04/09/2024 1:10 PM EDT Received message from [employer]. Jaja needs a new order for Freestyle Jennifer sensors. A1C is> 1 year old. Sent [employer] message to patient making her aware updated A1C is needed so that we can submit an order to [employer] for new sensors. Hanna Dinero RPh, PharmD, BCACP Clinical Pharmacist Medication Therapy Management Clinic 04/09/24, 1:12 PM documented in this encounter Plan of Treatment Upcoming Encounters Date Type Department Care Team (Late st Contact Info) Description 04/20/2024 10:00 AM EDT Home Visit [facility] [address] [address] Heidi Garcia RN [address] [place] [address] 04/22/2024 8:30 AM EDT Appointment Radiology 1st Pr, [facility] [address] [facility] [place] [address] 04/27/2024 12:20 PM EDT Office Visit Nutrition & Weight Management, [facility] [address] [facility] [place] [address] Cleo Fonseca PA-C [address] [facility] [place] [address] 05/05/2024 5:40 PM EDT Office Visit [facility] [address] [place] [id number] Luis Fernando Rojas MD [address] [place] [address] 06/03/2024 8:15 AM EST Cardiac Studies Cardiac Studies, [facility] [address] [facility] [place] [address] 07/01/2024 10:00 AM EST Office Visit Podiatry [facility] [address] [facility] [place] [address] Calli Avila DPM [address] [place] [address] 08/10/2024 8:00 AM EST Office Visit Gastroenterology, [facility] [address] [facility] [place] [address] Emi Queen CRNP [address] [place] [address] Scheduled Procedures Name Priority Associated Diagnoses Date/Ti [...] 2024 01/08/2022, 04/09/2021, 09/23/2020, Additional history exists Influenza Vaccine (FLU shot) (#1) 2024 04/17/2023, 04/20/2022, 05/08/2021, Additional history exists Mammogram 07/08/2024 07/08/2023, 06/20, [...] Discontinued 02/27/2023, 12/11/2017, 12/02/2013, Additional history exists HPV (Gardasil) Vaccine Aged Out No lo nger eligible based on patient's age to complete this topic MENINGOCOCCAL (MENACTRA/MENVEO) Aged Out No longer eligible based on patient's age to complete this topic documented as of this encounter Medical Devices Implanted Type Area Video Poker Floorman Device Identifier Shelf Expiration Date Model / Serial / Lot Coil Vortex 35 Pltinm [id number] - [id number] Implanted:Qty: 1 on 11/27/2021 by Sterling Cates MD [place] [facility] [place]: Upper Arm [employer] : NEURO INTR [id number] 08/15/2024 [id number] / / [id number] Coil Vortex 35 Pltinm 252980 - [id number] Implanted:Qty: 1 on 11/27/2021 by Sterling Cates MD [place] [facility] [place]: Upper Arm [employer] : NEURO INTR [id number] 08/15/2024 [id number] / / [id number] Coil Vortex 35 Pltinm 276062 - [id number] Implanted:Qty: 1 on 11/27/2021 by Sterling Cates MD at [place] [facility] [place]: Upper Arm [employer] : NEURO INTR [id number] 08/15/2024 [id number] / / [id number] Coil Vortex 35 Pltinm 693928 - [id number] Implanted:Qty: 1 on 11/27/2021 by Sterling Cates MD at [place] [facility] Right: Upper Arm [employer] : NEURO INTR [id number] 05/16/2024 [id number] / / [id number] Azur 35 Detachable 5mm 11cm - [id number] Implanted:Qty: 1 on 03/19/2022 by Jose Devine MD at [place] [facility] [place]: Wrist [employer] [id number] 10/18/2025 [id number] / / [id number] Azur 35 Detachable 5mm 11cm - [id number] Implanted:Qty: 1 on 03/19/2022 by Jose Devine MD at [place] [facility] [place] Right: Wrist [employer] [id number] 06/19/2026 [id number] / / [id number] Mesh Flat Sheet 10x14 [id number] - [id number] Implanted:Qty: 1 on 12/11/2022 by Eros Dash MD at [place] [facility] [place] N/A: Abdomen CR BARD : DAVOL [id number] 06/17/2027 [id number] / / [id number] documented as of this encounter Visit Diagnoses Diagnosis Type 2 diabetes mellitus with hemoglobin A1c goal of less than 7.0% (HCC)- Primary documented in this encounter Advance Directives Documents on File Type Date Recorded Patient Foil Spinner Expl anation POLST 11/13/2020 POLST PEN[place]YLVA VALERIA [...] Finley Spouse Health Care Agent Care Teams Therapeutic Recreation Assistant Relationship Specialty Start Date End Date Luis Fernando Rojas MD [address] [place] [address] PCP - General Family Medicine 09/23/16 documented as of this encounter
--- OUTSIDE RECORDS SUMMARY | 2024-07-08 02:56 | External Medical Summary | Summary of Care ---
Author Name Unknown Organization [facility] Address [address] [place] [address] Phone [phone] Care Team Providers Care Human Services Professional Name Role Phone Luis Fernando Rojas MD Primary Care Provider [phone] Encounter Details Date Type Department Care Team (Late st Contact Info) Description 04/08/2024 Population Health External Data Unspecified Department Allergies Active Allergy Reactions Criticality Noted Date Comments Salvador Inhibitors Other (Please comment),Cough High HyperKalemia documented as of this encounter (statuses as of 04/12/2024) Medications Medication Sig Dispensed Refills Start Date [...] [facility]) 7 Each 3 05/17/2021 Active CPAP every [...] hemoglobin A1c goal of less than 7.0% ([facility]) Use 4 times daily with [...] hemoglobin A1c goal of less than 7.0% ([facility]) Inject 16 units subcutaneously every day. 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 [id number] 10/17/2023 12/11/19 25 Active documented as of this encounter (statuses as of 04/12/2024) Active Problems Problem Noted Date Diagnosed Date [...] 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 10/15/2022 SHELL RESEARCH OTHER*[id number] 01/01/2022 S/P gastric bypass 01/01/2022 Marginal ulcer [...] as of this encounter (statuses as of 04/12/2024) Resolved Problems Problem Noted Date Diagnosed Date [...] Insulin long-term use 11/19/20182018 Overview: Duplicate terminal block assembler (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 insulin 11/19/2018 10/08/2022 Morbid [...] T-tube placement 04/16/2017 05/29/2017 [employer] Other*[id number] 04/13/2013 08/27/2016 Overview: Study Title: Genomic Markers for Patients with Cardiovascular Disease Project # [id number] Clinical Immunologist: Siena Laws MD [phone] Hypertensive heart disease 03/25/2013 1 07/29/2016 Neuropathy, [...] as of this encounter (statuses as of 04/12/2024) Immunizations Name Administration Dates Next Due COVID-19 mRNA, LNP-s, No Pre serve, 2-Dose Series (Moderna) 04/09/2021,09/23/2020,08/19/2020 COVID-19, LNP-s, No Preserve , Espinoza-sucrose, Ages 12+ (Pfizer) 01/08/2022 HEPATITIS B VACCINE, RECOMB, 20 MCG/ML, ADULT (HEPLISAV-B) 09/05/2021,05/09/2021,04/04/2021,02/18 Hepatitis B, 20+ yrs 09/16/2018,04/14/2018,03/1104/11/2018 Pneumococcal Conjugate Vacci ne, 20-valent (Wehkrlx49) 12/02/2023(Deferred: - pt states she's already received) [...] Description 04/20/2024 10:00 AM EDT Home Visit [facility] [address] [address] Heidi Garcia RN [address] [place] [address] 04/22/2024 8:30 AM EDT Appointment Radiology [facility] [address] [facility] [place] [address] 04/27/2024 12:20 PM EDT Office Visit Nutrition & Weight Management, [facility] [address] [address] Cleo Fonseca PA-C [address] [place] [address] 05/05/2024 5:40 PM EDT [facility] [address] [facility] [id number] Luis Fernando Rojas MD [address] [place] [facility] [place] [address] 06/03/2024 8:15 AM EST Cardiac Studies Cardiac Studies, [facility] [address] [facility] [place] [address] 07/01/2024 10:00 AM EST Office Visit Podiatry [facility] [address] [place] [address] Calli Avila DPM [address] [place] [address] 08/10/2024 8:00 AM EST Office Visit Gastroenterology, [facility] [address] [place] [address] Emi Queen CRNP [address] [place] [address] Scheduled Procedures Name Priority Associated Diagnoses Date/Ti [...] this encounter Medical Devices Implanted Type Area Teaching Associate Device Identifier Shelf Expiration Date Model / Serial / Lot Coil Vortex 35 Pltinm [id number] - [id number] Implanted:Qty: 1 on 11/27/2021 [place] [facility] [place] Upper Arm [employer] : NEURO INTR [id number] 08/15/2024 [id number] Coil Vortex 35 Pltinm 981475 - [id number] Implanted:Qty: 1 on 11/27/2021 by Sterling Cates MD [place] [facility] [place]: Upper Arm [employer] : NEURO INTR [id number] 08/15/2024 [id number] Coil Vortex 35 Pltinm [id number] - [id number] Implanted:Qty: 1 on 11/27/2021 by Sterling Cates MD [place] [facility]: Upper Arm [employer] : NEURO INTR [id number] 08/15/2024 [id number] Coil Vortex 35 Pltinm [id number] - [id number] Implanted:Qty: 1 on 11/27/2021 by Sterling Cates MD [place] [facility]: Upper Arm [employer] : NEURO INTR [id number] 05/16/2024 [id number] Azur 35 Detachable 5mm 11cm - [id number] Implanted:Qty: 1 on 03/19/2022 by Jose Devine MD [place] [facility] [place]: Wrist [employer] [id number] 10/18/2025 [id number] / / [id number] Azur 35 Detachable 5mm 11cm - [id number] Implanted:Qty: 1 on 03/19/2022 by Jose Devine MD [place] [facility] [place]: Wrist [employer] [id number] 06/19/2026 [id number] / / [id number] Mesh Flat Sheet 10x14 [id number] - [id number] Implanted:Qty: 1 on 12/11/2022 by Eros Dash MD [place] [facility]A: Abdomen CR BARD : DAVOL [id number] 06/17/2027 [id number] / / [id number] documented as of this encounter Advance Directives Documents on File Type Date Recorded Patient Lime Kiln Tender Saranya FIGUEROA 11/13/2020 POLST FRAGAA VALERIA ORDERS FOR LIFE-SUSTAINING TREATMENT * Full [...] Agents on File Name Relationship Healthcare Agent [facility] Communication Zhen Finley Spouse Health Care Agent Care Teams Human Services Professional Relationship Specialty Start Date End Date Luis Fernando Rojas MD [address] [place] [address] PCP - General Family Medicine 09/23/16 documented as of this encounter
--- OUTSIDE RECORDS SUMMARY | 2024-07-08 02:56 | External Medical Summary | Summary of Care ---
Author Name Unknown Organization [facility] Address [address] [place] [address] Phone [phone] Care Team Providers Care Game Programmer Name Role Phone Luis Fernando Rojas MD Primary Care Provider Encounter Details Date Type Department Care Team (Late st Contact Info) Description 04/06/2024 Telephone [facility] [address] [place] [address] Luis Fernando Rojas MD [address] [place] [address] Allergies Active Allergy Reactions Criticality Noted Date Comments Salvador Inhibitors Other (Please comment),Cough High HyperKalemia documented as of this encounter (statuses as of 04/06/2024) Medications Medication Sig Dispensed Refills Start Date [...] 1,000 mcgIndications:S/P gastric bypass 1000 mcg IM [id number] 10/15/2022 07/19/2025 Active vitamin b-12 (Cyanocobalamin) inj 1,000 mcgIndications:Morbid obesity with BMI of 40.0-44.9, adult (HCC),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 [id number] 10/17/2023 12/11/19 25 Active documented as of this encounter (statuses as of 04/06/2024) Active Problems Problem Noted Date Diagnosed Date [...] 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 10/15/2022 MORFIN RESEARCH OTHER*[id number] 01/01/2022 S/P gastric bypass 01/01/2022 Marginal ulcer [...] Last Assessment & Plan: Continues on of atorvastatin, updated medication rec as it said 40 documented as of this encounter (statuses as of 04/06/2024) Resolved Problems Problem Noted Date Diagnosed Date [...] T-tube placement 04/16/2017 05/29/2017 [employer] Other*[id number] 04/13/2013 08/27/2016 Overview: Study Title: Genomic Markers for Patients with Cardiovascular Disease Project # [id number] Comprehensive Ophthalmologist: Siena Laws MD [phone] Hypertensive heart disease 03/25/2013 1 07/29/2016 Neuropathy, [...] as of this encounter (statuses as of 04/06/2024) Immunizations Name Administration Dates Next Due COVID-19 mRNA, LNP-s, No Pre serve, 2-Dose Series (Moderna) 04/09/2021,09/23/2020,08/19/2020 COVID-19, LNP-s, No Preserve , Espnioza-sucrose, Ages 12+ (Pfizer) 01/08/2022 HEPATITIS B VACCINE, RECOMB, 20 MCG/ML, ADULT (HEPLISAV-B) 09/05/2021,05/09/2021,04/04/2021,02/18 Hepatitis B, 20+ yrs 09/16/2018,04/14/2018,03/1104/11/2018 Pneumococcal Conjugate Vacci ne, 20-valent ([id number]) 12/02/2023(Deferred: - pt states she's already received) [...] Telephone Encounter - Sena Gonzáles LPN - 04/06/2024 6:58 PM EDT ----- Message from Luis Fernando Rojas MD sent at 03/27/2024 10:36 AM EDT ----- I hope diarrhea better. The tests for C diff and other infectious causes are all negative. documented in this encounter Plan of Treatment Upcoming Encounters Date Type Department Care Team (Late st Contact Info) Description 04/20/2024 10:00 AM EDT Home Visit [facility] [address] [facility] [place] [address] Heidi Garcia, RN [address] [place] [address] 04/22/2024 8:30 AM EDT Appointment Radiology [facility], [address] [place] [address] 04/27/2024 12:20 PM EDT Office Visit Nutrition & Weight Management, [facility] 132 [facility] [place] [address] Cleo Fonseca PA-C 132 [facility] [place] [address] 05/05/2024 5:40 PM EDT Office Visit [facility] [address] [facility] [address] Luis Fernando Rojas MD [address] [facility] [place] [address] 06/03/2024 8:15 AM EST Cardiac Studies Cardiac Studies, [facility] 132 [facility] [place] [address] 07/01/2024 10:00 AM EST Office Visit Podiatry [facility] 132 [facility] [place] [address] Calli Avila DPM 132 [facility] [place] [address] 08/10/2024 8:00 AM EST Office Visit Gastroenterology, [facility] 132 [facility] [place] [address] Emi Queen CRNP [facility] [place] [address] Scheduled Procedures Name Priority Associated Diagnoses Date/Ti [...] this encounter Medical Devices Implanted Type Area Naval Engineer Device Identifier Shelf Expiration Date Model / Serial / Lot Coil Vortex 35 Pltinm [id number] - [id number] Implanted:Qty: 1 on 11/27/2021 by Sterling Cates MD [place] [facility] Right: Upper Arm [employer] : NEURO INTR [id number] 08/15/2024 [id number] / / [id number] Coil Vortex 35 Pltinm [id number] - [id number] Implanted:Qty: 1 on 11/27/2021 by Sterling Cates MD at [place] [facility] Right: Upper Arm [employer] : NEURO INTR [id number] 08/15/2024 [id number] / / [id number] Coil Vortex 35 Pltinm [id number] - [id number] Implanted:Qty: 1 on 11/27/2021 by Sterling Cates MD at [place] [facility] Right: Upper Arm [employer] : NEURO INTR [id number] 08/15/2024 [id number] / / [id number] Coil Vortex 35 Pltinm [id number] - [id number] Implanted:Qty: 1 on 11/27/2021 by Sterling Cates MD at [place] [facility] Right: Upper Arm [employer] : NEURO INTR [id number] 05/16/2024 [id number] / / [id number] Azur 35 Detachable 5mm 11cm - [id number] Implanted:Qty: 1 on 03/19/2022 by Jose Devine MD at [place] [facility] Right: Wrist [employer] [id number] 10/18/2025 [id number] / / [id number] Azur 35 Detachable 5mm 11cm - [id number] Implanted:Qty: 1 on 03/19/2022 by Jose Devine MD at [place] [facility] Right: Wrist [employer] [id number] 06/19/2026 [id number] / / [id number] Mesh Flat Sheet 10x14 [id number] - [id number] Implanted:Qty: 1 on 12/11/2022 by Eros Dash MD at [place] [facility] N/A: Abdomen CR BARD : DAVOL [id number] 06/17/2027 [id number] / / [id number] documented as of this encounter Advance Directives Documents on File Type Date Recorded Patient Digital Publishing Specialist Expl anation POLST 11/13/2020 [facility] ORDERS FOR LIFE-SUSTAINING TREATMENT [...] Agents on File Name [facility] Zhen Finley Spouse Health Care Agent Care Teams Game Programmer Relationship Specialty Start Date End Date Luis Fernando Rojas MD [address] [place] [address] PCP - General Family Medicine 09/23/16 documented as of this encounter
--- OUTSIDE RECORDS SUMMARY | 2024-07-08 02:56 | External Medical Summary | Summary of Care ---
Author Name Unknown Organization [facility] Address [address] [place] [address] Phone [phone] Care Team Providers Care Veterans Rehabilitation Counselor Name Role Phone Luis Fernando Rojas MD Primary Care Provider [phone] Reason for Visit * Reason Onset Date Comments [facility]: Maintenance 04/20/2024 Encounter Details Date Type Department Care Team (Late st Contact Info) Description 04/20/2024 Telephone [facility] [address] [employer] [address] [place] [address] Heidi Garcia, RN [address] [place] [address] [facility]: Maintenance Allergies Active Allergy Reactions Criticality Noted Date Comments Salvador Inhibitors Other (Please comment),Cough High HyperKalemia documented as of this encounter (statuses as of 04/20/2024) Medications Medication Sig Dispensed Refills Start Date [...] hemoglobin A1c goal of less than 7.0% ([facility]) Inject 14 units with breakfast, [...] by mouth in the morning. 03/23/2024 Active WHMSOFTio In Vitro Strip (Glucose Blood) To test blood sugar 4 times daily. 400 Strip 1 04/20/2024 Active Konnectsuch Delica Lancets 33G To test blood sugar 4 times daily. 400 Each 1 04/20/2024 Active Zoobean Verio w/Device Kit Use as directed. 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 10/15/2022 MORFIN RESEARCH OTHER*[id number] 01/01/2022 S/P gastric bypass 01/01/2022 Marginal ulcer [...] as of this encounter (statuses as of 04/20/2024) Resolved Problems Problem Noted Date Diagnosed Date [...] T-tube placement 04/16/2017 05/29/2017 [employer] [facility] Other*[id number] 04/13/2013 08/27/2016 Overview: Study Title: Genomic Markers for Patients with Cardiovascular Disease Project # [id number] Equipment Operator Wage Hand: Siena Laws MD [phone] Hypertensive heart disease 03/25/2013 1 07/29/2016 Neuropathy, [...] as of this encounter (statuses as of 04/20/2024) Immunizations Name Administration Dates Next Due COVID-19 mRNA, LNP-s, No Pre serve, 2-Dose Series (Moderna) 04/09/2021,09/23/2020,08/19/2020 COVID-19, LNP-s, No Preserve , Espinoza-sucrose, Ages 12+ (Pfizer) 01/08/2022 HEPATITIS B VACCINE, RECOMB, 20 MCG/ML, ADULT (HEPLISAV-B) 09/05/2021,05/09/2021,04/04/2021,02/18 Hepatitis B, 20+ yrs 09/16/2018,04/14/2018,03/1104/11/2018 Pneumococcal Conjugate Vacci ne, 20-valent (Rzbmswx19) 12/02/2023(Deferred: - pt states she's already received) [...] encounter Miscellaneous Notes * Telephone Encounter - Lesa Desai RPh - 04/20/2024 12:40 PM EDT Prescriptions sent to [facility]. Lesa Desai RPh, PharmD, BCACP Clinical Pharmacist - Information Technology Project Manager [facility] 04/20/2024, 12:41 PM * Telephone Encounter - eHidi Garcia RN - 04/20/2024 11:46 AM EDT [place] Pt seen for home visit today She reports that she no longer has a glucometer, lancets, and strips. Would you be able to get thisordered for her so she has it in instances when her freestyle is unavailable? Thank you! documented in this encounter Plan of Treatment Upcoming Encounters Date Type Department Care Team (Late st Contact Info) Description 04/27/2024 12:20 PM EDT Office Visit Nutrition & Weight Management, [facility] [address] [place] [address] Cleo Fonseca PA-C [address] [place] [address] 05/05/2024 5:40 PM EDT Office Visit [place] [address] [place] [address] Luis Fernando Rojas MD [address] [place] [address] 06/01/2024 10:00 AM EST Home Visit [facility] [address] [place] [address] Heidi Garcia RN [address] [place] [address] 06/03/2024 8:15 AM EST Cardiac Studies [facility] Studies, [facility] [place] [address] 07/01/2024 10:00 AM EST Office Visit Podiatry [facility] [place] [address] Calli Avila DPM [address] [place] [address] 08/10/2024 8:00 AM EST Office Visit Gastroenterology, [facility] [address] [place] [address] Emi Queen CRNP [address] [place] [address] Scheduled Procedures Name Priority Associated Diagnoses Date/Ti [...] this encounter Medical Devices Implanted Type Area Bridal Service Sales And Management Device Identifier Shelf Expiration Date Model / Serial / Lot Coil Vortex 35 Pltinm [id number] - [id number] Implanted:Qty: 1 on 11/27/2021 by Sterling Cates MD [place] [facility] [place] Upper Arm [employer] : NEURO INTR [id number] 08/15/2024 [id number] / / [id number] Coil Vortex 35 Pltinm [id number] - [id number] Implanted:Qty: 1 on 11/27/2021 by Sterling Cates MD [place] [facility] [place]: Upper Arm [employer] : NEURO INTR [id number] 08/15/2024 [id number] / / [id number] Coil Vortex 35 Pltinm [id number] - [id number] Implanted:Qty: 1 on 11/27/2021 by Sterling Cates MD [place] [facility] [place]: Upper Arm [employer] : NEURO INTR [id number] 08/15/2024 [id number] / / [id number] Coil Vortex 35 Pltinm 989656 - [id number] Implanted:Qty: 1 on 11/27/2021 by Sterling Cates MD [place] [facility] [place]: Upper Arm [employer] : NEURO INTR [id number] 05/16/2024 [id number] / / [id number] Azur 35 Detachable 5mm 11cm - [id number] Implanted:Qty: 1 on 03/19/2022 by Jose Devine MD [place] [facility] [place]: Wrist [employer] [id number] 10/18/2025 [id number] / / [id number] Azur 35 Detachable 5mm 11cm - [id number] Implanted:Qty: 1 on 03/19/2022 by Jose Devine MD [place] [facility] [place]: Wrist [employer] [id number] 06/19/2026 [id number] / / [id number] Mesh Flat Sheet 10x14 [id number] - [id number] Implanted:Qty: 1 on 12/11/2022 by Eros Dash MD [place] [facility] N/A: Abdomen CR BARD : DAVOL [id number] 06/17/2027 [id number] / / [id number] documented as of this encounter Advance Directives Documents on File Type Date Recorded Patient Clothing Worker Expl anation POLST 11/13/2020 POLST PEN[place]YLVA [...] File Name Relationship Healthcare Agent [facility] Communication Zhen Finley Spouse Health Care Agent Care Teams Veterans Rehabilitation Counselor Relationship Specialty Start Date End Date Luis Fernando Rojas MD [address] [place] [address] PCP - General Family Medicine 09/23/16 documented as of this encounter
--- OUTSIDE RECORDS SUMMARY | 2024-07-08 02:56 | External Medical Summary | Summary of Care ---
Author Name Unknown Organization [facility] Address [address] [place] [address] Phone [phone] Care Team Providers Care Fitness Professional Name Role Phone Luis Fernando Rojas MD Primary Care Provider [phone] Encounter Details Date Type Department Care Team (Late st Contact Info) Description 04/20/2024 10:00 AM EDT Home Visit [facility], [facility] [address] [place] [address] Heidi Garcia, RN [address] [place] [address] Allergies Active Allergy Reactions Criticality Noted Date [...] 7.0% ([facility]) Use 4 times daily with insulin 400 [...] [facility]) Inject 16 units subcutaneously every day. 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 [id number] 10/17/2023 12/11/19 25 Active documented as of [...] 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 10/15/2022 MOR[facility] RESEARCH OTHER*[id number] 01/01/2022 S/P gastric bypass 01/01/2022 Marginal ulcer [...] T-tube placement 04/16/2017 05/29/2017 [employer] [facility] Other*[id number] 04/13/2013 08/27/2016 Overview: Study Title: Genomic Markers for Patients with Cardiovascular Disease Project # [id number] Executive Meeting Manager: Siena Laws MD [phone] Hypertensive heart disease 03/25/2013 1 07/29/2016 Neuropathy, [...] yrs 09/16/2018,04/14/2018,03/1104/11/2018 Pneumococcal Conjugate Vacci ne, 20-valent ([id number]) 12/02/2023(Deferred: - pt states she's already received) [...] Sign Reading Time Taken Comments Blood Pressure 122/64 04/20/2024 10:02 AM EDT Pulse 64 04/20/2024 10:02 AM EDT Temperature 36.5 C (97.7 F) 04/20/2024 10:02 AM E DT Respiratory Rate 18 04/20/2024 10:02 AM EDT Oxygen Saturation 96% 04/20/2024 10:02 AM EDT Inhaled Oxygen Concentration - - Weight - - Height - - Body Mass Index - - documented in this encounter Functional Status Functional [...] as of this encounter Progress Notes * Heidi Garcia RN - 04/20/2024 11:42 AM EDT Current Concerns: Pt reports she has been doing well Finished PT and has been ambulating independently Has been back to driving Attending dialysis without issue She does continue to have issues with diarrhea and will be following up with GI regarding this Pt does report that she does not have a glucometer, lancets or strips to test her blood sugar in cases when her freestyle jennifer is not available. Will send TE to [facility] to have this ordered Physical Exam: Physical Exam Constitutional: General: She is not in acute distress. Cardiovascular: Rate and Rhythm: Normal rate and regular rhythm. Pulses: Normal pulses. Heart sounds: Normal heart sounds. Pulmonary: Effort: Pulmonary effort is normal. Breath sounds: Normal breath sounds. Abdominal: Palpations: Abdomen is soft. Skin: General: Skin is warm and dry. Neurological: Mental Status: She is alert and oriented to person, place, and time. Review of Systems: Review of Systems Constitutional: Negative. HENT: Negative. Eyes: Negative. Respiratory: Positive for shortness of breath ([facility]SON - at baseline). Cardiovascular: Negative. Gastrointestinal: Positive for diarrhea. Genitourinary: Negative. Musculoskeletal: Positive for arthralgias. Skin: Negative. Neurological: Negative. Hematological: Negative. Psychiatric/Behavioral: Negative. Care Plan Goal Progress: Orders Placed: No orders of the defined types were placed in this encounter. Medications Given: Care Gaps: Care Gaps Care gaps closed this contact:: Education;Medications;Plan of Care (POC) (04/20/24 1140) Type of education: Clinical/disease (04/20/24 1140) Type of medication care gap: Medication adherence (04/20/24 1140) Type of plan of care (POC) care gap: Creation of plan of care (POC) and/or Integrated Care Plan (ICP);Education and review of exacerbation plan (04/20/24 1140) documented in this encounter Plan of Treatment Upcoming Encounters Date Type Department Care Team (Late st Contact Info) Description 04/27/2024 12:20 PM EDT Office Visit Nutrition & Weight Management, [facility] 132 [facility] [place] [address] Cleo Fonseca PA-C 132 [facility] [place] [address] 05/05/2024 5:40 PM EDT Office Visit [facility] [address] [facility] [address] Luis Fernando Rojas MD [address] [place] [address] 06/01/2024 10:00 AM EST Home Visit [facility] 132 [facility] [place] [address] Heidi Garcia, RN 132 [place] [address] 06/03/2024 8:15 AM EST Cardiac Studies Cardiac Studies, [facility] 132 [place] [address] 07/01/2024 10:00 AM EST Office Visit Podiatry [facility] [address] Calli Avila DPM 132 [place] [address] 08/10/2024 8:00 AM EST Office Visit Gastroenterology, [facility] [address] Emi Queen CRNP [facility] [address] Scheduled Procedures Name Priority Associated Diagnoses Date/Ti [...] encounter Medical Devices Implanted Type Area Photo Engraver Device Identifier Shelf Expiration Date Model / Serial / Lot Coil Vortex 35 Pltinm [id number] - [id number] Implanted:Qty: 1 on 11/27/2021 by Sterling Cates MD at OR [facility] Right: Upper Arm [employer] : NEURO INTR [id number] 08/15/2024 [id number] / / [id number] Coil Vortex 35 Pltinm [id number] - [id number] Implanted:Qty: 1 on 11/27/2021 by Sterling Cates MD at OR [facility] Right: Upper Arm [employer] : NEURO INTR [id number] 08/15/2024 [id number] / / [id number] Coil Vortex 35 Pltinm [id number] - [id number] Implanted:Qty: 1 on 11/27/2021 by Sterling Cates MD at OR [facility] Right: Upper Arm [employer] : NEURO INTR [id number] 08/15/2024 [id number] / / [id number] Coil Vortex 35 Pltinm 336451 - [id number] Implanted:Qty: 1 on 11/27/2021 by Sterling Cates MD at OR [facility] Right: Upper Arm [employer] : NEURO INTR [id number] 05/16/2024 [id number] / / [id number] Azur 35 Detachable 5mm 11cm - [id number] Implanted:Qty: 1 on 03/19/2022 by Jose Devine MD at OR [facility] Right: Wrist [employer] [id number] 10/18/2025 [id number] / / [id number] Azur 35 Detachable 5mm 11cm - [id number] Implanted:Qty: 1 on 03/19/2022 by Jose Devine MD at OR [facility] Right: Wrist [employer] [id number] 06/19/2026 [id number] / / [id number] Mesh Flat Sheet 10x14 [id number] - [id number] Implanted:Qty: 1 on 12/11/2022 by Eros Dash MD at OR [facility] N/A: Abdomen CR BARD : DAVOL [id number] 06/17/2027 [id number] / / [id number] documented as of this encounter Advance Directives Documents on File Type Date Recorded Patient Jockey'S Agent Expl anation POLST 11/13/2020 POLST PENNSYLVA VALERIA [...] File Name Relationship Healthcare Agent [facility] Communication Zhen Finley Spouse Health Care Agent Care Teams Fitness Professional Relationship Specialty Start Date End Date Luis Fernando Rojas MD [address] [place] [address] PCP - General Family Medicine 09/23/16 documented as of this encounter
--- OUTSIDE RECORDS SUMMARY | 2024-07-08 02:56 | External Medical Summary | Summary of Care ---
Author Name Unknown Organization [facility] Address [address] [place] [address] Phone [phone] Care Team Providers Care Seaman Name Role Phone Luis Fernando Rojas MD Primary Care Provider [phone] Reason for Visit * Reason Comments Diabetic Foot Care Encounter Details Date Type Department Care Team (Late st Contact Info) Description 04/01/2024 9:40 AM EDT Office Visit Podiatry [facility] [address] [place] [address] Calli Avila DPM [address] [place] [address] Onychomycosis*; Type 2 diabetes mellitus 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 dialysis, with long-term current use of insulin ([facility]); Hammer toe of right foot; ESRD (end stage renal disease) on dialysis ([facility]) Allergies Active Allergy Reactions Criticality Noted Date Comments Salvador Inhibitors Other (Please comment),Cough High HyperKalemia documented as of this encounter (statuses as of 04/01/2024) Medications Medication Sig Dispensed Refills Start Date [...] directed. Replace every 14 days (supplied through [facility]) 7 Each 3 05/17/2021 Active CPAP every [...] Solostar 100 UNIT/ML Subcutaneous Solution Pen-injector (Morgan Zhou)Indication s:Type 2 diabetes mellitus with hemoglobin A1c [...] 1,000 mcgIndications:S/P gastric bypass 1000 mcg IM [id number] 10/15/2022 07/19/2025 Active vitamin b-12 (Cyanocobalamin) inj 1,000 mcgIndications:Morbid obesity with BMI of 40.0-44.9, adult ([facility]),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 [id number] 10/17/2023 12/11/19 25 Active documented as of this encounter (statuses as of 04/01/2024) Active Problems Problem Noted Date Diagnosed Date [...] 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 10/15/2022 [facility] RESEARCH OTHER*[id number] 01/01/2022 S/P gastric bypass 01/01/2022 Marginal ulcer [...] as of this encounter (statuses as of 04/01/2024) Resolved Problems Problem Noted Date Diagnosed Date [...] T-tube placement 04/16/2017 05/29/2017 [employer] Other*[id number] 04/13/2013 08/27/2016 Overview: Study Title: Genomic Markers for Patients with Cardiovascular Disease Project # [id number] Sales Audit Clerk: Siena Laws MD [phone] Hypertensive heart disease 03/25/2013 1 07/29/2016 Neuropathy, [...] as of this encounter (statuses as of 04/01/2024) Immunizations Name Administration Dates Next Due COVID-19 mRNA, LNP-s, No Pre serve, 2-Dose Series (Moderna) 04/09/2021,09/23/2020,08/19/2020 COVID-19, LNP-s, No Preserve , Espinoza-sucrose, Ages 12+ (Pfizer) 01/08/2022 HEPATITIS B VACCINE, RECOMB, 20 MCG/ML, ADULT (HEPLISAV-B) 09/05/2021,05/09/2021,04/04/2021,02/18 Hepatitis B, 20+ yrs 09/16/2018,04/14/2018,03/1104/11/2018 Pneumococcal Conjugate Vacci ne, 20-valent ([id number]) 12/02/2023(Deferred: - pt states she's already received) [...] on file Are you (or your family) acleb eless or worried that you might be [...] this encounter Progress Notes * Calli Avila, DAVIDM - 04/01/2024 9:38 AM EDT Podiatry Established Patient Note [facility] Name: Candi Finley : 1960 Date: 04/01/2024 CHIEF COMPLAINT: Diabetic Nail Care HISTORY OF [...] ESRD (end stage renal disease) on dialysis ([facility]) 03/14/2021 HTN, goal below 130/80 Kidney disease, chronic, stage III (GFR 30-59 ml/min) (HCC) 10/02/2011 More specified code listed on PL [...] Renal failure hemodialysis SBO (small bowel obstruction) ([facility]) 04/25/2017 Sleep apnea 07/2009 CPAP 11 cm H2O. C-flex 2 Past Surgical History: Procedure Laterality Date ABD WALL HERNIA REPAIR, LAP, REDUCIBLE N/A 01/28/2022 LAPAROSCOPIC VENTRAL/UMBILICAL HERNIA REPAIR, REDUCIBLE W OR W/O MESH performed by Honorio Ashford MD at OR [facility] AV ACCESS, DIRECT ANASTOMOSIS Right 08/16/2021 ARTERIOVENOUS ANASTOMOSIS OPEN DIRECT ANY SITE performed by Sterling Cates MD at OR [facility] BREAST BIOPSY Left 12/26/2008 Usual Ductal Hyperplasia BREAST BIOPSY Left 09/20/2010 Benign BX LYMPH NODE DEEP AXIL Right 05/22/2021 BIOPSY LYMPH NODE DEEP AXILLARY OPEN performed by Diamond Rivero MD at OR [facility] COLONOSCOPY, DIAGNOSTIC (RECTUM) 12/02/2013 hyperplastic polyps, diverticulosis, repeat 5 yrs/done @ [facility] COLONOSCOPY, DIAGNOSTIC (RECTUM) 12/11/2017 adenomatous polyps, diverticulosis, repeat 5 yrs/[facility] COLONOSCOPY, DIAGNOSTIC (RECTUM) N/A 02/27/2023 diverticulosis/hemorrhoids/biopsies show adenomatous polyps/recall 5 years/Colonoscopy/[place] CORONARY ANGIOGRAPHY W/LEFT HEART CATH 04/13/2013 CORONARY ANGIOGRAPHY W/LEFT HEART CATH performed by Ulises Reed MD at CARDIAC LABS [facility] DIALYIS CIRCUIT VASCULAR EMBOLIZATION OCCLUSION ENDOVASC IMAGING Right 11/27/2021 EMBOLIZATION DIALYSIS CIRCUIT performed by Sterling Cates MD at OR [facility] EGD, FLEXIBLE, DIAGNOSTIC 05/03/2014 mild-mod inflammation/done @ [facility] EGD, FLEXIBLE, DIAGNOSTIC N/A 04/16/2017 ESOPHAGOGASTRODUODENOSCOPY (EGD), FLEXIBLE, TRANSORAL, DIAGNOSTIC performed by Félix Gilliam OR [facility] EGD, FLEXIBLE, DIAGNOSTIC 05/05/2020 mild-mod inflammation on bx / ESOPHAGOGASTRODUODENOSCOPY (EGD), FLEXIBLE, TRANSORAL, DIAGNOSTIC performed by Adin Borja MD at ENDOSCOPY [facility] EGD, FLEXIBLE, DIAGNOSTIC N/A 04/25/2021 ESOPHAGOGASTRODUODENOSCOPY (EGD), FLEXIBLE, TRANSORAL, DIAGNOSTIC performed by Honorio Almendarez MD atENDOSCOPY [facility] EGD, FLEXIBLE, DIAGNOSTIC 06/13/2021 gastrojejunal anastomosis characterized by ulceration, repeat 2 mo / [facility] IDENTIFY SENTINEL NODE, RADIOACTIVE TRACER Right 05/22/2021 INJECTION PROCEDURE FOR IDENTIFICATION SENTINEL NODE performed by Diamond Rivero MD at OR [facility] INFORMATION Left 2019 Pacemaker placement. INTRO CATH DIALYSIS CIRCUIT DX ANGIOGRAPHY FLUORO S&I Right 10/10/2022 AV FISTULOGRAM DIAGNOSTIC performed by Jose Devine MD at OR [facility] INTRO CATH DIALYSIS CIRCUIT W/TRANSCATH PLACEMENT IV STENT Right 03/19/2022 AV FISTULOGRAM STENT & PERIPHERAL ANGIOPLASTY performed by Jose Devine MD at OR [facility] INTRO CATH DIALYSIS CIRCUIT W/TRANSCATH PLACEMENT IV STENT Right 05/13/2023 AV FISTULOGRAM STENT & PERIPHERAL ANGIOPLASTY performed by Williams Matt MD at OR [facility] INTRO CATH DIALYSIS CIRCUIT W/TRANSCATH PLACEMENT IV STENT Right 12/02/2023 AV FISTULOGRAM STENT & PERIPHERAL ANGIOPLASTY performed by Micheal Urena MD at OR [facility] INTRO CATH DIALYSIS CIRCUIT W/TRANSLUM BALLOON ANGIOPLASTY Right 11/27/2021 AV FISTULOGRAM & PERIPHERAL ANGIOPLASTY performed by Sterling Cates MD at OR [facility] INTRO CATH DIALYSIS CIRCUIT W/TRANSLUM BALLOON ANGIOPLASTY Right 05/30/2022 AV FISTULOGRAM & PERIPHERAL ANGIOPLASTY performed by Beto Torrez MD at OR [facility] INTRO CATH DIALYSIS CIRCUIT W/TRANSLUM BALLOON ANGIOPLASTY Right 02/25/2023 AV FISTULOGRAM & PERIPHERAL ANGIOPLASTY performed by Jose Devine MD at OR [facility] INTRO CATH DIALYSIS CIRCUIT W/TRANSLUM BALLOON ANGIOPLASTY Right 03/30/2024 AV FISTULOGRAM & PERIPHERAL ANGIOPLASTY performed by Micheal Urena MD at OR [facility] IR DUPLEX ULTRASOUND (FOR INTERVENTIONAL RADIOLOGY USE ONLY) 03/02/2021 IR VENOUS ACCESS NON-MEDIPORT 07/18/2022 LAPAROSCOPE PROCEDURE, LIVER N/A 04/16/2017 UNLISTED LAPAROSCOPIC PROCEDURE LIVER performed by Sukumar Polanco MD at OR [facility] LAPAROSCOPE PROCEDURE, LIVER N/A 01/28/2022 UNLISTED LAPAROSCOPIC PROCEDURE LIVER performed by Honorio Ashford MD at OR [facility] LAPAROSCOPIC GASTRIC BYPASS/JODY-EN-Y N/A 04/16/2017 LAPAROSCOPIC GASTRIC RESTRICTIVE BYPASS JODY EN Y performed by Sukumar Polanco MD at OR [facility] LAPAROSCOPY; CHOLECYSTECTOMY N/A 04/16/2017 LAPAROSCOPIC CHOLECYSTECTOMY performed by Sukumar Polanco MD at OR [facility] MISCELLANEOUS ORDER ([facility] ONLY) 05/2009 breast [...] performed by Sukumar Polanco MD at OR [facility] REPLACE,COMP,FLACO CENT ACC DEV N/A 03/22/2021 REPLACEMENT COMPLETE TUNNELED CENTRAL CATHETER NO PORT performed by Luis Fernando Hassan DO at OR [facility] REVISE STOMACH-BOWEL FUSION N/A 01/28/2022 REVISION GASTROJEJUNAL ANASTOMOSIS performed by Honorio Ashford MD at OR [facility] RMV MALG LSN TRK/ARM/LG >4.0CM Right 05/22/2021 EXCISION MALIGNANT TRUNK ARM LEG OVER 4CM performed by Diamond Rivero MD at OR [facility] RPR AA HERNIA 1ST 3-10 CM REDUCIBLE N/A 12/11/2022 INCISIONAL/VENTRAL/SPIGELIAN HERNIA REPAIR INITIAL 3-10 CM REDUCIBLE performed by Eros Dash MD at OR [facility] TOTAL ABD HYSTERECTOMY W/WO REMOVAL OF TUBE(S) Bilateral age 33 TOTAL HYSTERECTOMY TAHBSO (endometrial ca) TRANSECTION VAGUS NRV,TRUNCAL N/A 01/28/2022 LAPAROSCOPIC TRANSECTION VAGUS NERVES TRUNCAL performed by Honorio Ashford MD at OR [facility] UPPER GI ENDOSCOPY Family History Problem [...] level: Not on file Occupational History Employer: [employer] Social Needs Financial resource strain: Not on file Food [...] file Gets together: Not on file Attends denominational service: Not on file Active member of [...] Not on file Social History Narrative 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 Aspirin 81 MG Oral Tablet Chewable Take 1 Tab by mouth at bedtime. with food. 90 Tab 3 FreeStyle Jennifer 2 Sensor Use as directed. Replace every 14 days (supplied through [facility]) 7 Each 3 CPAP every night at [...] taking: Reported on 03/30/2024) 25 Tablet 11 Acetaminophen 325 MG Oral [...] 0.5 Tablets by mouth in the morning. Current Facility-Administered Medications Medication Dose Route Frequency [...] Nursing Notes * Elisa Zuñiga LPN - 04/01/2024 9:24 AM EDT Pt presents for routine diabetic nail care, no pain in feet. BSG 127 this morning. documented in this encounter Plan of Treatment Upcoming Encounters Date Type Department Care Team (Late st Contact Info) Description 04/06/2024 7:15 AM EDT Cardiac Studies Cardiac Studies, [facility] [address] [place] [address] 04/20/2024 10:00 AM EDT Home Visit [facility], [facility] [address] [place] [address] Heidi Garcia RN [address] [place] [address] 04/27/2024 12:20 PM EDT Office Visit Nutrition & Weight Management, [facility] [address] [place] [address] Cleo Fonseca PA-C [address] [place] [address] 05/05/2024 5:40 PM EDT Office Visit Family [facility] [address] [place] [id number] Luis Fernando Rojas MD [address] [place] [address] 07/01/2024 10:00 AM EST Office Visit Podiatry [facility] [address] [place] [address] Calli Avila DPM [address] [place] [address] Scheduled Procedures Name Priority Associated Diagnoses Date/Ti [...] this encounter Medical Devices Implanted Type Area Capsule Inspector Device Identifier Shelf Expiration Date Model / Serial / Lot Coil Vortex 35 Pltinm [id number] - [id number] Implanted:Qty: 1 on 11/27/2021 by Sterling Cates MD at OR [facility] Right: Upper Arm [employer] : NEURO INTR [id number] 08/15/2024 [id number] / / [id number] Coil Vortex 35 Pltinm [id number] - [id number] Implanted:Qty: 1 on 11/27/2021 by Sterling Cates MD at OR [facility] Right: Upper Arm [employer] : NEURO INTR [id number] 08/15/2024 [id number] / / [id number] Coil Vortex 35 Pltinm [id number] - [id number] Implanted:Qty: 1 on 11/27/2021 by Sterling Cates MD at OR [facility] Right: Upper Arm [employer] : NEURO INTR [id number] 08/15/2024 [id number] / / [id number] Coil Vortex 35 Pltinm [id number] - [id number] Implanted:Qty: 1 on 11/27/2021 by Sterling Cates MD at OR [facility] Right: Upper Arm [employer] : NEURO INTR [id number] 05/16/2024 [id number] / / [id number] Azur 35 Detachable 5mm 11cm - [id number] Implanted:Qty: 1 on 03/19/2022 by Jose Devine MD at OR [facility] Right: Wrist [employer] [id number] 10/18/2025 [id number] / / [id number] Azur 35 Detachable 5mm 11cm - [id number] Implanted:Qty: 1 on 03/19/2022 by Jose Devine MD at OR [facility] Right: Wrist [employer] [id number] 06/19/2026 [id number] / / [id number] Mesh Flat Sheet 10x14 [id number] - [id number] Implanted:Qty: 1 on 12/11/2022 by Eros Dash MD at OR [facility] N/A: Abdomen CR BARD : DAVOL [id number] 06/17/2027 [id number] / / [id number] documented as of this encounter Visit Diagnoses Diagnosis Onychomycosis- Primary Dermatophytosis of nail Type 2 diabetes mellitus 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 dialysis, with long-term current use of insulin (HCC) Hammer toe of right foot ESRD (end stage renal disease) on dialysis (HCC) End stage renal disease documented in this encounter Advance Directives Documents on File Type Date Recorded Patient Video Game Engineer Expl anation HENRY 11/13/2020 HENRY SHAW ORDERS [...] on File Name Relationship Healthcare Agent [facility] Communication Zhen Finley Spouse Health Care Agent Care Teams Seaman Relationship Specialty Start Date End Date Luis Fernando Rojas MD [address] [place] [address] PCP - General Family Medicine 09/23/16 documented as of this encounter
--- OUTSIDE RECORDS SUMMARY | 2024-07-08 02:56 | External Medical Summary | Summary of Care ---
Author Name Unknown Organization [facility] Address [address] [place] [address] Phone [phone] Care Team Providers Care Photocomposition Keyboard Operator Name Role Phone Luis Fernando Rojas MD Primary Care Provider [phone] Encounter Details Date Type Department Care Team (Late st Contact Info) Description 05/04/2024 Population Health External Data Unspecified Department Allergies [...] directed. Replace every 14 days (supplied through [facility]) 7 Each 3 05/17/2021 Active CPAP every [...] A1c goal of less than 7.0% ([facility]) Use 4 times daily with [...] A1c goal of less than 7.0% ([facility]) Inject 16 units subcutaneously every day. 30 mL 4 10/28/2023 Active Insulin Lispro (1 Unit Dial) 100 UNIT/ML Subcutaneous Solution Pen-injector (HumaLOG KwikPen)Indication s:Type 2 diabetes mellitus with hemoglobin A1c goal of less than 7.0% ([facility]) Inject 14 units with breakfast, [...] by mouth in the morning. 03/23/2024 Active TwentyFour6 In Vitro Strip (Glucose Blood) To test blood sugar 4 times daily. 400 Strip 1 04/20/2024 Active Poll Everywhere DelXention Lancets 33G To test blood sugar 4 times daily. 400 Each 1 04/20/2024 Active TwentyFour6 w/Device Kit Use as directed. 1 Kit 04/20/2024 Active Hospital, Clinic, or Other Facility Administered Medication Ordered Dose Route Frequency Start Date End Date Status vitamin b-12 (Cyanocobalamin) inj 1,000 mcgIndications:S/P gastric bypass 1000 mcg IM [id number] 10/15/2022 07/19/2025 Active vitamin b-12 (Cyanocobalamin) inj 1,000 mcgIndications:Morbid obesity with BMI of 40.0-44.9, adult (HCC),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 [id number] 10/17/2023 12/11/19 25 Active documented as of [...] 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 10/15/2022 [facility] RESEARCH OTHER*[id number] 01/01/2022 S/P gastric bypass 01/01/2022 Marginal ulcer [...] T-tube placement 04/16/2017 05/29/2017 [employer] [facility] Other*[id number] 04/13/2013 08/27/2016 Overview: Study Title: Genomic Markers for Patients with Cardiovascular Disease Project # [id number] Sheet Heater Helper: Siena Laws MD [phone] Hypertensive heart disease 03/25/2013 1 07/29/2016 Neuropathy, [...] yrs 09/16/2018,04/14/2018,03/1104/11/2018 Pneumococcal Conjugate Vacci ne, 20-valent ([id number]) 12/02/2023(Deferred: - pt states she's already received) [...] Care Team (Late st Contact Info) Description 05/05/2024 5:40 PM EDT Office Visit [facility] [address] [place] [address] Luis Fernando Rojas MD [address] [place] [address] Arrived 06/01/2024 10:00 AM EST Home Visit [facility] [address] [address] Heidi Garcia RN [address] [place] [address] 06/02/2024 9:20 AM EST Office Visit Nutrition & Weight Management, [facility] [address] [address] Cleo Fonseca PA-C [address] [place] [address] 06/03/2024 8:15 AM EST Cardiac Studies Cardiac Studies, [facility] [address] [facility] [place] [address] 07/01/2024 10:00 AM EST Office Visit Podiatry [facility] [address] [facility] [address] [place] [address] Calli Avila DPM [facility] [place] [address] 08/10/2024 8:00 AM EST Office Visit Gastroenterology, [facility] [address] [facility] [address] [place] [address] Emi Queen CRNP [address] [place] [address] Scheduled Procedures Name Priority Associated Diagnoses Date/Ti [...] this encounter Medical Devices Implanted Type Area Lab Support Technician Device Identifier Shelf Expiration Date Model / Serial / Lot Coil Vortex 35 Pltinm [id number] - [id number] Implanted:Qty: 1 on 11/27/2021 by Sterling Cates MD [place] [facility] Right: Upper Arm [employer] : NEURO INTR [id number] 08/15/2024 [id number] Coil Vortex 35 Pltinm [id number] - [id number] Implanted:Qty: 1 on 11/27/2021 by Sterling Cates MD [place] [facility] Right: Upper Arm [employer] : NEURO INTR [id number] 08/15/2024 [id number] Coil Vortex 35 Pltinm [id number] - [id number] Implanted:Qty: 1 on 11/27/2021 by Sterling Cates MD [place] [facility] Right: Upper Arm [employer] : NEURO INTR [id number] 08/15/2024 [id number] / / [id number] Coil Vortex 35 Pltinm [id number] - [id number] Implanted:Qty: 1 on 11/27/2021 by Sterling Cates MD [place] [facility] Right: Upper Arm [employer] : NEURO INTR [id number] 05/16/2024 [id number] / / [id number] Azur 35 Detachable 5mm 11cm - [id number] Implanted:Qty: 1 on 03/19/2022 by Jose Devine MD [place] [facility] Right: Wrist [employer] [id number] 10/18/2025 [id number] / / [id number] Azur 35 Detachable 5mm 11cm - [id number] Implanted:Qty: 1 on 03/19/2022 by Jose Devine MD [place] [facility] Right: Wrist [employer] [id number] 06/19/2026 [id number] / / [id number] Mesh Flat Sheet 10x14 [id number] - [id number] Implanted:Qty: 1 on 12/11/2022 by Eros Dash MD at [place] [facility] N/A: Abdomen CR BARD : DAVOL [id number] 06/17/2027 [id number] / / [id number] documented as of this encounter Advance Directives Documents on File Type Date Recorded Patient Chain Hoist Operator Expl anation POLST 11/13/2020 POLST [place] [...] Agents on File Name Relationship Healthcare Agent [facility] p Communication Zhen Finley Spouse Health Care Agent Care Teams Photocomposition Keyboard Operator Relationship Specialty Start Date End Date Luis Fernando Rojas MD [address] [place] [address] PCP - General Family Medicine 09/23/16 documented as of this encounter
[2024-07-08] MEDS ORDERED: PHARMACY GLYCEMIC MGMT CONSULT PRN (03:26)
[2024-07-08] MEDS: INSULIN ASPART PER UNIT CHARGE SC STA (03:34)
[2024-07-08] MEDS: LEVOTHYROXINE SODIUM 100 MCG TABLET PO SCH (05:30)
--- NOTE | 2024-07-08 05:54 | Electrocardiogram Report ---
Test Reason : Blood Pressure : */* mmHG Vent. Rate : 76 BPM Atrial Rate : 76 BPM P-R Int : 234 ms QRS Dur : 194 ms QT Int : 492 ms P-R-T Axes : 10 -70 55 degrees QTcB Int : 553 ms Atrial-sensed ventricular-paced rhythm with prolonged AV conduction Abnormal ECG When compared with ECG of 09-Jan-2024 02:41, Vent. rate has increased by 9 bpm Confirmed by Josse Nance ([id number]) on 07/08/2024 5:54:41 AM Referred By: Confirmed By: Josse Nance
[2024-07-08 06:39] LABS: Creatinine Clr Calc Pharmacy 8.2 ml/min
[2024-07-08 06:41] LABS: BUN Creatinine Ratio 7.3 (10-20); Magnesium 2.5 mg/dl (1.7-2.4); Phosphorus 7.9 mg/dl (2.5-4.9); Potassium 5.9 mmol/L (3.5-5.1)
[2024-07-08 07:22] LABS: Thyroid Stimulating Hormone 1.013 uIu/ml (0.300-4.500)
[2024-07-08] MEDS: CALCIUM ACETATE 667 MG CAP/TAB PO SCH (08:48)
[2024-07-08] MEDS ORDERED: LANTUS PER UNIT CHARGE SQ SCH (09:00)
--- NOTE | 2024-07-08 09:51 | Hospitalist Progress Note ---
Date of Service July 08, 2024 Assessment & Plan (1) Acute hypoxic respiratory failure: Plan: Clinically stable, probably bronchitis in nature, chest x-ray was unremarkable, continue supportive treatment for another day, reevaluate tomorrow. May use bronchodilator treatment as needed and mucolytics. Wean off oxygen. (2) Acute bronchitis due to Rhinovirus: Plan: Treat symptomatically and supportively. (3) Volume overload: Plan: This could be because of missed hemodialysis, patient will be seen by nephrology and have hemodialysis today for volume removal. Reevaluate tomorrow. (4) Hyperkalemia: Plan: Due to missed dialysis, potassium was up to 5.7, proceed with dialysis. Recheck a.m. labs. (5) ESRD (end stage renal disease) on dialysis: Plan: Continue with inpatient hemodialysis per nephrology (6) Hypothyroidism: Plan: Continue Synthroid 100 mcg daily. (7) MINISTERIO on CPAP: Plan: Continue with nocturnal CPAP (8) Insulin-requiring or dependent type II diabetes mellitus: Plan: Blood sugars were initially elevated due to steroid use but currently stable, continue with insulin sliding scale coverage and insulin NPH 20 units daily. (9) Hypertension: Plan: Blood pressure is controlled, continue with amlodipine and carvedilol. Plan Proceed with hemodialysis per nephrology, recheck a.m. labs, try to wean her off oxygen over the next 24 hours, possible discharge tomorrow. Admission and Anticipated Discharge Date Admission Date: July 07, 2024 Subjective Patient is a very pleasant 63-year-old morbidly obese female with history of diabetes mellitus type 2, end-stage renal disease on hemodialysis Fridays, hypertension, hyperlipidemia, anxiety and hypothyroidism who started getting ill yesterday and as a result missed his hemodialysis. Patient presented with cough and some shortness of breath, she was found to be positive for rhinovirus and respiratory secretions, patient was given a dose of steroids which resulted in some hyperglycemia, she was also found to have some hyperkalemia with potassium of 5.7. Patient was seen and examined, chest x-ray was unremarkable, she will be seen by nephrology to have Catch up hemodialysis today, will regulate home medications, echocardiogram was ordered today, as patient seems to be overall stable, I will watch for another day and reevaluate her tomorrow for possible discharge. Physical Exam Physical Exam: VITALS: Reviewed. WEIGHT/BMI reviewed. GEN: Healthy appearing, well-developed, NAD. NECK: Supple, with no masses. CV: RRR, no m/r/g. LUNGS: Difficult to examine considering obesity but I could hear some scattered rhonchi ABD: Soft, NT/ND, NBS, no masses or organomegaly. EXT: No clubbing, cyanosis, or edema. NEURO: Ambulating with no limitations. Normal muscle strength and tone. No focal deficits. Results & Data Results & Data Vital Signs (Past 12 Hours) Vital Signs Temp Pulse Pulse Resp BP Pulse Ox O2 Del Method 07/08/24 07:41 36.5 C 71 16 124/75 98 Nasal Cannula 07/08/24 03:33 36.4 C L 63 18 149/78 H 97 CPAP 07/08/24 02:45 68 16 96 07/07/24 23:10 Nasal Cannula 07/07/24 23:10 Nasal Cannula 07/07/24 23:10 36.8 C 79 16 145/82 H 94 Nasal Cannula O2 Flow Rate 07/08/24 07:41 2 07/08/24 03:33 2 07/08/24 02:45 2 07/07/24 23:10 2 07/07/24 23:10 2 07/07/24 23:10 2 Laboratory Results Laboratory Results - last 24 hr 07/07/24 07/07/24 07/07/24 15:39 15:57 16:55 WBC 8.17 RBC 3.90 L Hgb 11.5 L Hct 37.3 MCV 95.6 MCH 29.5 MCHC 30.8 L RDW Std Deviation 59.5 H RDW Coeff of [place] 17.2 H Plt Count 234 MPV 10.2 Immature Gran % (Auto) 0.4 Neut % (Auto) 61.1 Lymph % (Auto) 19.3 [place] % (Auto) 14.7 Eos % (Auto) 3.3 Baso % (Auto) 1.2 Neut # (Auto) 4.99 Lymph # (Auto) 1.58 [place] # (Auto) 1.20 H Eos # (Auto) 0.27 Baso # (Auto) 0.10 Immature Gran # (Auto) 0.03 PT Cancelled 10.8 INR Cancelled 1.0 APTT Cancelled 29 PTT Ratio Cancelled 1.1 Sodium 127 L Potassium TNP 5.7 H Chloride 91 L Carbon Dioxide 25 Anion Gap 11 BUN 45 H Creatinine 6.83 H* Est Cr Clr Drug Dosing 9.6 eGFR 6.23 BUN/Creatinine Ratio 6.6 L Glucose 286 H POC Glucose Calcium 9.0 Phosphorus 6.5 H Magnesium 2.4 Total Bilirubin 0.5 AST TNP 20 ALT 18 Alkaline Phosphatase 133 H Troponin I High Sens 19.0 H Total Protein 7.2 Albumin 3.6 Globulin 3.6 Albumin/Globulin Ratio 1.0 Procalcitonin Cancelled 0.84 H TSH Adenovirus (PCR) Not Detected B. pertussis DNA (PCR) Not Detected B.parapertussis DNA PCR Not Detected C. pneumoniae DNA (PCR) Not Detected Coronavirus OC43 (PCR) Not Detected Coronavirus HKU1 (PCR) Not Detected Coronavirus 229E (PCR) Not Detected SARS-CoV-2 (PCR) Not Detected Coronavirus NL63 (PCR) Not Detected Human Metapneumovir PCR Not Detected Influenza Type A (PCR) Not Detected Influenza Type B (PCR) Not Detected M. pneumoniae (PCR) Not Detected Parainfluenza 1 (PCR) Not Detected Parainfluenza 2 (PCR) Not Detected Parainfluenza 3 (PCR) Not Detected Parainfluenza 4 (PCR) Not Detected RSV (PCR) Not Detected Entero/Rhino (PCR) DETECTED A 07/07/24 07/07/24 07/08/24 23:31 23:33 03:18 WBC RBC Hgb Hct MCV MCH MCHC RDW Std Deviation RDW Coeff of [place] Plt Count MPV Immature Gran % (Auto) Neut % (Auto) Lymph % (Auto) [place] % (Auto) Eos % (Auto) Baso % (Auto) Neut # (Auto) Lymph # (Auto) [place] # (Auto) Eos # (Auto) Baso # (Auto) Immature Gran # (Auto) PT INR APTT PTT Ratio Sodium Potassium Chloride Carbon Dioxide Anion Gap BUN Creatinine Est Cr Clr Drug Dosing eGFR BUN/Creatinine Ratio Glucose POC Glucose 436 H* 464 H* 376 H* Calcium Phosphorus Magnesium Total Bilirubin AST ALT Alkaline Phosphatase Troponin I High Sens Total Protein Albumin Globulin Albumin/Globulin Ratio Procalcitonin TSH Adenovirus (PCR) B. pertussis DNA (PCR) B.parapertussis DNA PCR C. pneumoniae DNA (PCR) Coronavirus OC43 (PCR) Coronavirus HKU1 (PCR) Coronavirus 229E (PCR) SARS-CoV-2 (PCR) Coronavirus NL63 (PCR) Human Metapneumovir PCR Influenza Type A (PCR) Influenza Type B (PCR) M. pneumoniae (PCR) Parainfluenza 1 (PCR) Parainfluenza 2 (PCR) Parainfluenza 3 (PCR) Parainfluenza 4 (PCR) RSV (PCR) Entero/Rhino (PCR) 07/08/24 07/08/24 07/08/24 03:25 05:53 07:45 WBC RBC Hgb Hct MCV MCH MCHC RDW Std Deviation RDW Coeff of [place] Plt Count MPV Immature Gran % (Auto) Neut % (Auto) Lymph % (Auto) [place] % (Auto) Eos % (Auto) Baso % (Auto) Neut # (Auto) Lymph # (Auto) [place] # (Auto) Eos # (Auto) Baso # (Auto) Immature Gran # (Auto) PT INR APTT PTT Ratio Sodium 129 L Potassium 5.9 H Chloride 93 L Carbon Dioxide 22 Anion Gap 14 H BUN 58 H Creatinine 7.90 H* D Est Cr Clr Drug Dosing 8.2 eGFR 5.23 BUN/Creatinine Ratio 7.3 L Glucose 323 H* POC Glucose 340 H* 280 H Calcium 9.0 Phosphorus 7.9 H Magnesium 2.5 H Total Bilirubin AST ALT Alkaline Phosphatase Troponin I High Sens Total Protein Albumin Globulin Albumin/Globulin Ratio Procalcitonin TSH 1.013 Adenovirus (PCR) B. pertussis DNA (PCR) B.parapertussis DNA PCR C. pneumoniae DNA (PCR) Coronavirus OC43 (PCR) Coronavirus HKU1 (PCR) Coronavirus 229E (PCR) SARS-CoV-2 (PCR) Coronavirus NL63 (PCR) Human Metapneumovir PCR Influenza Type A (PCR) Influenza Type B (PCR) M. pneumoniae (PCR) Parainfluenza 1 (PCR) Parainfluenza 2 (PCR) Parainfluenza 3 (PCR) Parainfluenza 4 (PCR) RSV (PCR) Entero/Rhino (PCR) Diagnostic Findings Chest X-Ray 07/07/24 13:46 XR chest 1V not portable CLINICAL HISTORY: Chest pain, nonspecific COMPARISON STUDY: Chest radiograph January 09, 2024. Chest CT February 23, 2013. FINDINGS: Left subclavian pacemaker is unchanged in position. There is moderate cardiomegaly. Pulmonary vascular congestion is noted. There is minimal right basilar opacity. There is no pneumothorax or pleural effusion. IMPRESSION: Cardiomegaly with pulmonary vascular congestion. ACT 112: Negative or not required by law. Electronically signed by: Mihir Loaiza M.D. 07/07/2024 2:51 PM Medications Administered Current Inpatient Medications Acetaminophen (Acetaminophen 325 Mg Tab) 650 mg PO Q4H PRN PRN Reason: pain/fever Stop: 08/06/24 22:58 Albuterol (Albut/Ipratrop 3mg/0.5mg Neb 3 Ml Vial) 3 ml NEB Q4H PRN; Protocol PRN Reason: Wheezing/sob Stop: 08/06/24 22:58 Amlodipine Besylate (Amlodipine Besylate 5 Mg Tab) 5 mg PO QAM [facility] Stop: 08/07/24 08:59 Aspirin (Aspirin 81 Mg Chew) 81 mg PO HS [facility] Stop: 08/06/24 22:58 Last Admin: 07/07/24 23:59 Dose: 81 mg Atorvastatin Calcium (Atorvastatin 40 Mg Tab) 40 mg PO HS [facility] Stop: 08/06/24 22:58 Last Admin: 07/07/24 23:59 Dose: 40 mg Benzonatate (Benzonatate 100 Mg Capsule) 100 mg PO Q6H PRN PRN Reason: Cough Stop: 08/06/24 22:58 Bupropion HCl (Bupropion Sr 150 Mg Tabcr) 150 mg PO DAILY [facility] Stop: 08/07/24 08:59 Calcium Acetate (Calcium Acetate 667 Mg Cap/Tab) 2,001 mg PO TIDM [facility] Stop: 08/07/24 07:59 Last Admin: 07/08/24 08:48 Dose: 2,001 mg Calcium Acetate (Calcium Acetate 667 Mg Cap/Tab) 1,334 mg PO DAILY PRN PRN Reason: WITH SNACKS Stop: 08/06/24 23:28 Carvedilol (Carvedilol 6.25 Mg Tab) 6.25 mg PO AMHS [facility] Stop: 08/06/24 22:58 Last Admin: 07/07/24 23:59 Dose: 6.25 mg Citalopram Hydrobromide (Citalopram 20 Mg Tab) 20 mg PO QAM [facility] Stop: 08/07/24 08:59 Dextrose (Dextrose 50% 50 Ml Syringe) 25 - 50 ml IV UD PRN; Protocol PRN Reason: Hypoglycemia Protocol Stop: 08/06/24 22:58 Gabapentin (Gabapentin 300 Mg Cap) 300 mg PO HS [facility] Stop: 08/06/24 22:58 Last Admin: 07/08/24 00:00 Dose: 300 mg Glucagon (Glucagon For Inj 1 Mg Vial) 1 mg SQ UD PRN; Protocol PRN Reason: Hypoglycemia Protocol Stop: 08/06/24 22:58 Glucose (Glucose 40% Gel 15 Gm Tube) 15 - 30 gm PO UD PRN; Protocol PRN Reason: Hypoglycemia Protocol Stop: 08/06/24 22:58 Glucose (Glucose 10 Tab/Tube) 4 - 8 tab PO UD PRN; Protocol PRN Reason: Hypoglycemia Protocol Stop: 08/06/24 22:58 Guaifenesin (Guaifenesin 600 Mg Tabcr) 600 mg PO Q12 [facility] Stop: 08/06/24 22:58 Last Admin: 07/08/24 00:00 Dose: 600 mg Heparin Sodium (Porcine) (Heparin Sod 5,000 Unit/0.5 Ml Vial) 5,000 units SQ Q8 [facility] Stop: 08/06/24 22:58 Last Admin: 07/08/24 05:30 Dose: 5,000 units Hydrocodone Bit/Homatropine Methylb (Hydrocodone/Homatropine Syrup 5mg/1.5mg 5ml Udp) 5 ml PO Q8H PRN PRN Reason: Cough Stop: 07/21/24 22:58 Insulin Aspart (Insulin Aspart Per Unit Charge) 0 units SC ACHS [facility] Stop: 08/06/24 22:58 Last Admin: 07/08/24 09:15 Dose: 13 units Insulin Human NPH (Insulin Human Nph) 20 units SC DAILY [facility] Stop: 08/07/24 08:59 Levothyroxine Sodium (Levothyroxine Sodium 100 Mcg Tablet) 100 mcg PO DAILYBB [facility] Stop: 08/07/24 06:29 Last Admin: 07/08/24 05:30 Dose: 100 mcg Melatonin (Melatonin 3 Mg Tab) 9 mg PO HS [facility] Stop: 08/06/24 22:58 Last Admin: 07/07/24 23:58 Dose: 9 mg Miscellaneous (Carbohydrates For Hypoglycemia ) 15 - 30 gm PO UD PRN PRN Reason: Hypoglycemia Protocol Stop: 08/06/24 22:58 Miscellaneous Information (Pharmacy Glycemic Mgmt Consult) 1 each N/A UD PRN; Protocol PRN Reason: Consult Stop: 08/07/24 03:25 Ondansetron HCl (Ondansetron Inj 2 Mg/Ml 2 Ml Vial) 4 mg IV Q6H PRN PRN Reason: Nausea Stop: 08/06/24 22:58 Pantoprazole Sodium (Pantoprazole 40 Mg Tab) 40 mg PO PM [facility] Stop: 08/06/24 22:58 Last Admin: 07/08/24 00:01 Dose: 40 mg Polyethylene Glycol (Polyethylene (Miralax) 17 Gm Pack) 17 gm PO DAILY PRN PRN Reason: Constipation Stop: 08/06/24 22:58 Prednisone (Prednisone 20 Mg Tab) 40 mg PO DAILY [facility] Stop: 08/07/24 08:59 Vitamin B Complex/Folic Acid (Nephrocaps) 1 cap PO PM [facility] Stop: 08/06/24 22:58 Last Admin: 07/08/24 00:01 Dose: 1 cap Vitamin D (Cholecalciferol 25 Mcg (1000 Units) Tab) 25 mcg PO PM [facility] Stop: 08/06/24 22:58 Last Admin: 07/07/24 23:59 Dose: 25 mcg (3) Volume overload Hypervolemia type: other Qualified Code(s): E87.79 - Other fluid overload (6) Hypothyroidism Hypothyroidism type: acquired Qualified Code(s): E03.9 - Hypothyroidism, unspecified (9) Hypertension Hypertension type: primary hypertension Qualified Code(s): I10 - Essential (primary) hypertension
[2024-07-08] MEDS: amLODIPine BESYLATE 5 MG TAB PO SCH (10:02)
[2024-07-08] MEDS: INSULIN HUMAN NPH SC SCH (10:26)
--- NOTE | 2024-07-08 10:26 | Pharmacy Report ---
Pharmacy Glycemic Short Note 2 - Date of Service July 08, 2024 - Glycemic Short BSG Results (Last 24 hours): 07/07/24 07/07/24 07/07/24 15:57 23:31 23:33 Glucose 286 H POC Glucose 436 H* 464 H* 07/08/24 07/08/24 07/08/24 03:18 03:25 05:53 Glucose 323 H* POC Glucose 376 H* 340 H* 07/08/24 07:45 Glucose POC Glucose 280 H OUTPATIENT ANTIDIABETIC REGIMEN: * Lantus 16 units daily, Humalog SSI ASSESSMENT: * 63 year old admitted with hypoxia/bronchitis. ESRD on hemodialysis, planning for session today. Type 2 diabetic - pharmacy consulted for glycemic management. Started on steroids prednisone 40 mg once daily. BSGs >300s this AM, likely related to solumedrol given last evening. * Will transition to once daily NPH to cover prednisone effects - will stress home dose and trial NPH 20 units once daily (25% increase from home dose). Will utilize tighter parameters for novolog since BSGs currently elevated. PLAN FOR INPATIENT GLYCEMIC CONTROL: * Hold outpatient oral diabetes medications * Basal insulin * NPH 20 units daily - to be given with PO prednisone * Bolus insulin * NovoLog per scale ACHS or Q6hrs while NPO * Goal Range: Low 110 mg/dL - High 140 mg/dL * Correction Factor: 20 mg/dL/unit * Nutritional / Prandial insulin per carb ratio of 1 unit per 5 grams CHO consumed
[2024-07-08] MEDS: predniSONE 20 MG TAB PO SCH (10:27)
[2024-07-08] MEDS: CITALOPRAM 20 MG TAB PO SCH (10:27)
[2024-07-08] MEDS: buPROPion SR 150 MG TABCR PO SCH (10:28)
[2024-07-08] MEDS: HEPARIN SOD (PORCINE) 1000 UNIT/ML IV ONE (11:14)
[2024-07-08] MEDS: HEPARIN SOD (PORCINE) 1000 UNIT/ML IV SCH (13:13)
--- NOTE | 2024-07-08 16:42 | Nephrology Consultation ---
Date of Consultation July 08, 2024 Assessment & Plan (1) ESRD (end stage renal disease) on dialysis: patient with ESRD on dialysis Friday. She missed dialysis on Friday due to hospitalization with rhinovirus. She was dialyzed today for 3 hours and 45 minutes with target UF of 4 L. she will be dialyzed again tomorrow for 3-1/2 hours target UF 3 L. (2) Acute hypoxic respiratory failure: due to rhinovirus and CHF. Continue supportive management for the rhinovirus. We are optimizing fluid removal of dialysis. Titrate oxygen to maintain sats above 92%. (3) Acute on chronic heart failure with preserved ejection fraction: Chest x-ray showed pulmonary vascular congestion. Will take off another 3 L of fluid tomorrow at dialysis. History of Present Illness Reason for Consultation: ESRD Requesting Physician: Silvia Santos MD Attending Physician: Silvia Santos MD History of Present Illness Patient is a 63-year-old female with diabetes and end-stage renal disease on hemodialysis seen for dialysis support. patient was admitted on 07/07/2024 with chills for 2 days and had gone to the PCP for evaluation will recommended admission due to hypoxia with O2 sat of 86%. She missed her usual hemodialysis session on Friday. Chest x-ray showed some congestion and volume overload and she tested positive for rhinovirus. she now feels a little better. Breathing has improved although she still has shortness of breath with exertion. She has mild leg swelling. No fever. Patient was seen and examined while on dialysis. Allergies Allergy/AdvReac Type Severity Reaction Status Date / Time CHIDI Inhibitors AdvReac Mild COUGH Verified 02/21/23 10:02 Home Medications Medication Instructions Recorded Confirmed Type amlodipine 5 mg tablet 5 mg PO QAM 30 days #30 tabs 01/16/24 07/07/24 Rx aspirin 81 mg chewable tablet 81 mg PO HS 30 days #30 tabs 01/16/24 07/07/24 Rx atorvastatin 40 mg tablet 40 mg PO HS 30 days #30 tabs 01/16/24 07/07/24 Rx calcium acetate 667 mg tablet 2,001 mg (3 x 667 mg) PO TIDM 30 01/16/24 07/07/24 Rx days #90 tabs carvedilol 12.5 mg tablet 6.25 mg (1/2 x 12.5 mg) PO AMHS 30 01/16/24 07/07/24 Rx days #15 tabs cholecalciferol (vitamin D3) 25 25 mcg PO PM 30 days #30 tabs 01/16/24 07/07/24 Rx mcg (1,000 unit) tablet (Vitamin D3) citalopram 40 mg tablet 20 mg (1/2 x 40 mg) PO QAM 30 days 01/16/24 07/07/24 Rx #30 tabs cyanocobalamin (vitamin B-12) 1,000 mcg IM Q90D 30 days #1 mL 01/16/24 07/07/24 Rx 1,000 mcg/mL injection solution diclofenac sodium 1 % topical gel 2 g topical QID 30 days #100 grams 01/16/24 07/07/24 Rx gabapentin 600 mg tablet 300 mg (1/2 x 600 mg) PO HS 30 01/16/24 07/07/24 Rx days #15 tabs insulin glargine 100 unit/mL (3 16 unit (0.16 mL) subcut QAM 30 01/16/24 07/07/24 Rx mL) subcutaneous pen (Lantus days #4.8 mL Solostar U-100 Insulin) levothyroxine 100 mcg tablet 100 mcg PO QAM 30 days #30 tabs 01/16/24 07/07/24 Rx melatonin 10 mg tablet 10 mg PO HS 30 days #30 tabs 01/16/24 07/07/24 Rx omeprazole 40 mg capsule,delayed 20 mg (1/2 x 40 mg) PO PM 30 days 01/16/24 07/07/24 Rx release #15 caps vit B complx, C-iron 8 mg-folic 1 tab PO PM 30 days #30 tabs 01/16/24 07/07/24 Rx acid 800 mcg-D3 1,000 unit-zinc tablet (ProRenal) bupropion HCl 150 mg tablet,12 hr 150 mg PO DAILY 07/07/24 07/07/24 History sustained-release insulin lispro 100 unit/mL 1 sliding scale dose subcut 07/07/24 07/07/24 History subcutaneous solution DIRECTED Patient History Medical History ESRD (end stage renal disease) on dialysis Peripheral neuropathy bilateral legs/feet Anxiety History of anesthesia reaction woke up during hysterectomy in 1995 Hiatal hernia Osteoarthritis Degenerative disc disease Chronic back pain Post traumatic stress disorder History of anesthesia reaction when had port inserted needed more medication and could feel everything GERD (gastroesophageal reflux disease) Surgical History History of colonoscopy S/P left knee arthroscopy S/P right knee arthroscopy H/O radical excision of skin lesion melanoma S/P cardiac pacemaker procedure medtronic device, last checked ~2 months ago. Follows with Dr Stevenson S/P arteriovenous (AV) fistula creation Right arm History of vitrectomy History of cataract surgery bilateral History of adenoidectomy History of tonsillectomy H/O umbilical hernia repair open (~November 2022 [facility]) --> went to [facility] for rehab therapy for about 2 weeks. S/P dialysis catheter insertion right side of chest (since removed) S/P [place]-BSO H/O hernia repair Hx of gastric bypass History of cholecystectomy Hx of cardiac cath "2012, negative for CAD " Family History Other Colonic polyp GERD (gastroesophageal reflux disease) No family history of adverse response to anesthesia Social History Smoking Status: Never smoker Second Hand Exposure: No; Do You Dip or Chew Tobacco: No; Hx Alcohol Use: No Hx Substance Use: No Preferred Language: Yoruba Communication Ability: Effective Dietary Server Required: No Beliefs That Will Affect Care: None marital status: Current Living Situation: Spouse Current Living Situation Comment: lives with Other Information That Helps Us Care for You: No Feels Safe at Home: Yes Safety Concerns: Feels Safe At This Time Assistive Devices: Hospital Bed and Walker Review of Systems 2 Review of Systems: All other systems were reviewed and negative except as noted in HPI Physical Exam 2 Physical Exam: General exam: Appears comfortable, no acute distress . On oxygen nasal cannula HEENT: Pupils are equal and reactive to light Neck: No JVD, neck is supple trachea is midline Respiratory system: Clear breath sounds bilaterally. Gastrointestinal: Abdomen is soft, non distended, non tender, bowel sounds are present CVS: Regular rate and rhythm. No murmurs, rubs or gallops Musculoskeletal: No joint or muscle tenderness Extremities: Non tender, no edema, peripheral pulses are present Neuro: Oriented, no tremors, no focal neurological deficits Skin: No rashes Results & Data Vital Signs (Past 12 Hours) Vital Signs Temp Pulse Pulse Pulse Resp BP BP 07/08/24 15:16 36.8 C 94 H 16 140/79 07/08/24 15:08 37 C 79 146/83 H 07/08/24 14:30 78 164/68 H 07/08/24 14:00 76 160/71 H 07/08/24 13:30 78 158/74 H 07/08/24 13:00 78 142/63 H 07/08/24 12:30 78 127/74 07/08/24 12:00 80 132/75 07/08/24 11:30 83 130/71 07/08/24 11:00 74 126/66 07/08/24 10:59 72 156/59 H 07/08/24 10:50 37.2 C 76 07/08/24 07:50 07/08/24 07:41 36.5 C 71 16 124/75 Pulse Ox O2 Del Method O2 Flow Rate 07/08/24 15:16 97 Nasal Cannula 2 07/08/24 15:08 07/08/24 14:30 07/08/24 14:00 07/08/24 13:30 07/08/24 13:00 07/08/24 12:30 07/08/24 12:00 07/08/24 11:30 07/08/24 11:00 07/08/24 10:59 07/08/24 10:50 07/08/24 07:50 Nasal Cannula 2 07/08/24 07:41 98 Nasal Cannula 2 Laboratory Results 07/08/24 05:53 07/08/24 05:53 Phosphorus 7.9 H
[2024-07-08] MEDS: INSULIN HUMAN REGULAR PER UNIT 5 UNITS in SYRINGE 4.95 ML IV ONE (21:41)
[2024-07-08] MEDS: ALBUT/IPRATROP 3MG/0.5MG NEB 3 ML VIAL NEB PRN (23:40)
[2024-07-09] MEDS: INSULIN ASPART PER UNIT CHARGE SC SCH (02:29)
[2024-07-09] MEDS: ACETAMINOPHEN 325 MG TAB PO PRN (05:41)
[2024-07-09 07:09] LABS: Anion Gap 13 (3-11); BUN Creatinine Ratio 7.9 (10-20); Blood Urea Nitrogen 39 mg/dl (6-23); Calcium 9.4 mg/dl (8.6-10.3); Carbon Dioxide 28 mmol/L (21-32); Chloride 94 mmol/L (98-107); Creatinine Clr Calc Pharmacy 13.1 ml/min; Glucose 125 mg/dl (70-99(Fasting)); Sodium 135 mmol/L (136-145)
[2024-07-09 07:49] VITALS: RESP 17
[2024-07-09] MEDS: HEPARIN SOD (PORCINE) 1000 UNIT/ML IV ONE (10:35)
[2024-07-09] MEDS: HEPARIN SOD (PORCINE) 1000 UNIT/ML IV SCH (10:36)
[2024-07-09 11:04] VITALS: O2SAT 94
--- NOTE | 2024-07-09 11:18 | Pharmacy Report ---
Pharmacy Glycemic Short Note 2 - Date of Service July 09, 2024 - Glycemic Short BSG Results (Last 24 hours): 07/08/24 07/08/24 07/08/24 15:15 16:19 21:00 Glucose POC Glucose 203 H 272 H 341 H* 07/08/24 07/08/24 07/09/24 21:01 21:02 02:12 Glucose POC Glucose 352 H* 367 H* 129 H 07/09/24 07/09/24 05:28 07:34 Glucose 125 H POC Glucose 139 H OUTPATIENT ANTIDIABETIC REGIMEN: * Lantus 16 units daily, Humalog SSI ASSESSMENT: 07/09 * Patient received total of 75 units of insulin yesterday, of which 20 units were NPH * Fasting BSG 139 mg/dL - Will continue with AM NPH 20 units as BSGs trending down nicely yesterday. BSGs however trending back up after dinner and HS, required small IV insulin dose. Will add on small scale for NPH at dinner to hopefully prevent hyperglycemia. * Patient with another dialysis session scheduled today, anticipate similar trend with blood sugars 07/08 * 63 year old admitted with hypoxia/bronchitis. ESRD on hemodialysis, planning for session today. Type 2 diabetic - pharmacy consulted for glycemic management. Started on steroids prednisone 40 mg once daily. BSGs >300s this AM, likely related to solumedrol given last evening. * Will transition to once daily NPH to cover prednisone effects - will stress home dose and trial NPH 20 units once daily (25% increase from home dose). Will utilize tighter parameters for novolog since BSGs currently elevated. PLAN FOR INPATIENT GLYCEMIC CONTROL: * Hold outpatient oral diabetes medications * Basal insulin * NPH 20 units daily - to be given with PO AM prednisone * NPH 5-8 units daily with dinner * Bolus insulin * NovoLog per scale ACHS or Q6hrs while NPO * Goal Range: Low 110 mg/dL - High 140 mg/dL * Correction Factor: 20 mg/dL/unit * Nutritional / Prandial insulin per carb ratio of 1 unit per 5 grams CHO consumed
[2024-07-09 14:38] VITALS: BP 160/79; PULSE 69; TEMP 98.8
[2024-07-09] MEDS: BENZONATATE 100 MG CAPSULE PO PRN (14:49)
[2024-07-09] MEDS ORDERED: INSULIN HUMAN NPH SC SCH (16:30)
[2024-07-09] MEDS ORDERED: INSULIN HUMAN REGULAR PER UNIT 5 UNITS in SYRINGE 4.95 ML IV ONE (17:15)
[2024-07-10] MEDS ORDERED: INSULIN ASPART PER UNIT CHARGE SC SCH
== END 2024-07-09 18:02 | disposition home or self-care (01) | DRG 291 ==
LOC: ED 13:37 → 3E 20:08

== ENCOUNTER 2024-10-04 19:58 | Inpatient (IN) ==
--- NOTE | 2024-10-04 20:53 | Emergency Department Note ---
Impression & Plan Syncope, Rhinovirus infection, Dysrhythmia, Acute UTI, Dialysis patient ED Provider Note NAME: TAMARA EAGLE AGE: 63 SEX: F : 1960 ARRIVES VIA: Walk-In INFORMANT: [Patient][family] ED PROVIDER(S): [Marco Antonio Escobar MD] CHIEF COMPLAINT: Syncope HISTORY OF PRESENT ILLNESS: The patient is a 63-year-old female with a pacemaker who states that in the last month or so, she has passed out 5 times. She has not suffered any significant trauma. The last episode was while she was laying down so there was no fall. The patient states that she has no warning she is going to pass out. There is no dizziness or lightheadedness. She has not had chest pain. The patient did have dialysis today, there were no issues. She was told though by the dialysis team that her hemoglobin has been trending low lately. The patient admits that she has felt a bit short of breath for the past 5 days. No cough or congestion or respiratory complaints. Today, she felt somewhat dizzy when she was walking. As per her family, the syncopal episodes last for about a minute. She does not wake up on her own but needs to be shaken and then seems to come awake. She has no history of previous syncope. PMHx/PSHx/Social Hx: See Below PHYSICAL EXAM: GENERAL: Patient is in no acute distress. HEENT: No acute trauma, normocephalic atraumatic, mucous membranes moist, no nasal congestion. NECK: No stridor, no adenopathy, no meningismus, trachea is midline. LUNGS: Clear to auscultation bilaterally, no wheeze, no rhonchi, breath sounds equal. HEART: There is a 2/6 systolic murmur, regular rate and rhythm. ABDOMEN: Soft, nontender, no peritonitis. EXTREMITIES: No cyanosis, full range of motion of all the joints without pain or difficulty. Mild bilateral pedal edema. NEUROLOGIC: Oriented x 3, no acute motor or sensory deficits, no focal weakness. SKIN: No jaundice, no diaphoresis. DIFFERENTIAL DIAGNOSIS: Dysrhythmia, pacemaker malfunction, anemia, ND, electrolyte imbalance, among others. EMERGENCY DEPARTMENT PROCEDURES: MEDICAL DECISION MAKING: There is no leukocytosis. The patient is anemic however, she carries a history of anemia. There is a normal platelet count. Renal panel testing shows the need for dialysis with a creatinine of 4.54. No electrolyte abnormality in need of emergent correction. Liver enzymes were slightly elevated, the bilirubin though was normal. The patient appeared to be in a euthyroid state. ECG shows an AV pacemaker, no dysrhythmia. Cardiac enzyme testing x 1 is not consistent with acute cardiac injury. Urinalysis is suggestive of infection. Respiratory bio fire is positive for rhinovirus. Chest x-ray shows some potential CHF versus changes from her larger body habitus. There is no pneumonia. Pacemaker interrogation showed runs of ventricular tachycardia, she had a run today which I think could explain her syncope prior to arrival. I did speak with [facility] cardiology. They recommended IV amiodarone and hospitalization. Patient was ordered for an amiodarone bolus and drip. She was given IV ceftriaxone for the UTI. The patient has done well here in the ED. I do think we have multiple findings which could explain her presentation. The V. tach episodes certainly would explain the syncope. Her shortness of breath could be from the UTI, her anemia and rhinovirus findings. I did speak with the patient at length. I spoke with case management. The on- call hospitalist was consulted. Prior/Outside records/notes reviewed: None ECG per my interpretation: Indication was syncope. The ECG shows an AV pacemaker with a rate of 80. No dysrhythmia, no obvious ischemia. No PVCs. QTc was 553. Continuous Cardiac Monitoring per my interpretation: An order was placed for continuous cardiac monitoring. The monitor shows a rate of 78 with an AV pacemaker. Imaging/x-ray results per my interpretation: Chest x-ray shows some potential CHF versus changes from her larger body habitus. There is no pneumonia. Chronic Medical/Social conditions affecting care: History of dialysis need, history of pacemaker placement. Care/Management discussed with: Case management, the on-call hospitalist. [facility] cardiology-Dr. España Level of care consideration(s): After review of the information above and other included data: --I believe the patient requires escalation of care to admission Critical Care Note: I have personally spent 49 minutes of critical care time in the direct management of this patient. This includes bedside care, interpretation of diagnostic studies, and testing, discussion with consultants, patient, and family members, and other required patient management activities. This 49 minutes is in excess of all separately billable procedures. DISPOSITION: Admission Past Med/Surg History Problem List (Updated 08/09/24 @ 00:05 by Kranthi Arevalo) Dialysis patient (Acute) Acute UTI (Acute) Dysrhythmia (Acute) Rhinovirus infection (Acute) Syncope (Acute) Hypertension Rhinovirus infection (Acute) Hypoxia (Acute) Hypo-osmolar hyponatremia Insulin-requiring or dependent type II diabetes mellitus Acute on chronic heart failure with preserved ejection fraction Volume overload Acute bronchitis due to Rhinovirus Acute hypoxic respiratory failure Hypotension of hemodialysis Hyperkalemia Fracture of right tibial plateau Closed right tibial fracture (Acute) ESRD (end stage renal disease) on dialysis (Acute) Fall (Acute) Colon polyps S/P knee surgery (Chronic) DVT prophylaxis Anxiety Anemia Upper GI bleed (Acute) Hematemesis with nausea (Acute) Encounter for pre-operative examination Gastric ulcer COVID-19 (Acute) Acute dyspnea (Acute) Bilateral leg weakness (Acute) Anemia (Acute) Ambulatory dysfunction (Acute) Back pain (Acute) Tremor Obesity ESRD (end stage renal disease) on dialysis (Acute) Mon/Fri/Fri at [facility]. Pacemaker SSS [employer] follows with dr rosalie Wilks diastolic CHF (congestive heart failure) Depression Hypothyroidism SSS (sick sinus syndrome) Pt admitted for elective pacemaker due to SSS. She underwent procedure without any complications. Monitored over night and discharged home. MINISTERIO on CPAP (Chronic) MDD (major depressive disorder) (Chronic) HLD (hyperlipidemia) (Chronic) HTN (hypertension) (Chronic) Diabetes mellitus, type II (Chronic) IDDM H/O esophagogastroduodenoscopy (Chronic) Medical History ESRD (end stage renal disease) on dialysis Peripheral neuropathy bilateral legs/feet Anxiety History of anesthesia reaction woke up during hysterectomy in 1995 Hiatal hernia Osteoarthritis Degenerative disc disease Chronic back pain Post traumatic stress disorder History of anesthesia reaction when had port inserted needed more medication and could feel everything GERD (gastroesophageal reflux disease) Surgical History History of colonoscopy S/P left knee arthroscopy S/P right knee arthroscopy H/O radical excision of skin lesion melanoma S/P cardiac pacemaker procedure medtronic device, last checked ~2 months ago[address] with Dr Stevenson S/P arteriovenous (AV) fistula creation Right arm History of vitrectomy History of cataract surgery bilateral History of adenoidectomy History of tonsillectomy H/O umbilical hernia repair open (~November 2022 [facility]) --> went to [facility] for rehab therapy for about 2 weeks. S/P dialysis catheter insertion right side of chest (since removed) S/P [place]-BSO H/O hernia repair Hx of gastric bypass History of cholecystectomy Hx of cardiac cath "2012, negative for CAD " Family History Other Colonic polyp GERD (gastroesophageal reflux disease) No family history of adverse response to anesthesia Social History Smoking Status: Never smoker Second Hand Exposure: No; Do You Dip or Chew Tobacco: No; Hx Alcohol Use: No Hx Substance Use: No Preferred Language: Macedonian Communication Ability: Effective Cook Chill Technician Required: No Beliefs That Will Affect Care: None marital status: Current Living Situation: Spouse Current Living Situation Comment: lives with Feels Safe at Home: Yes Assistive Devices: Cane, CPAP and Walker Allergies Allergies Allergy/AdvReac Type Severity Reaction Status Date / Time CHIDI Inhibitors AdvReac Intermediate COUGH Verified 10/04/24 22:57 Home Meds Home Medications Medication Instructions Recorded Confirmed insulin lispro 100 unit/mL See Rx Instructions .Route .COMPLEX 07/07/24 10/04/24 subcutaneous solution Calcium W/Vitamin D3 1 tab PO BID 10/04/24 10/04/24 acetaminophen 325 mg tablet 650 mg PO Q6H PRN PAIN/FEVER 10/04/24 10/04/24 (Tylenol) albuterol sulfate 0.63 mg/3 mL 0.63 mg inhalation Q6H PRN Wheezing 10/04/24 10/04/24 solution for nebulization atorvastatin 40 mg tablet 40 mg PO QAM 10/04/24 10/04/24 biotin 10 mg tablet 10 mg PO DAILY 10/04/24 10/04/24 carvedilol 12.5 mg tablet 12.5 mg PO AMHS 10/04/24 10/04/24 cholecalciferol (vitamin D3) 125 125 mcg PO DAILY 10/04/24 10/04/24 mcg (5,000 unit) tablet (Vitamin D3) colestipol 1 gram tablet 2 g PO QDL PRN Diarrhea 10/04/24 10/04/24 diclofenac sodium 1 % topical gel 2 g topical TID PRN Pain 10/04/24 10/04/24 gabapentin 300 mg capsule 300 mg PO HS 10/04/24 10/04/24 insulin glargine 100 unit/mL (3 10 unit subcut QAM 10/04/24 10/04/24 mL) subcutaneous pen (Lantus Solostar U-100 Insulin) levothyroxine 100 mcg tablet 100 mcg PO DAILYBB 10/04/24 10/04/24 losartan 50 mg tablet 50 mg PO DAILY 10/04/24 10/04/24 nitroglycerin 0.4 mg sublingual 0.4 mg sublingual DIRECTED PRN 10/04/24 10/04/24 tablet (Nitrostat) CHEST PAIN omeprazole 20 mg capsule,delayed 20 mg PO DAILY 10/04/24 10/04/24 release pediatric multivitamin 1 tab PO BID 10/04/24 10/04/24 tramadol 50 mg tablet 50 mg PO Q4H PRN Pain 10/04/24 10/04/24 vit B complx, C-iron 8 mg-folic 1 tab PO DAILY 10/04/24 10/04/24 acid 800 mcg-D3 1,000 unit-zinc tablet (ProRenal) Previous Rx's Medication Instructions Recorded amlodipine 5 mg tablet 5 mg PO QAM 30 days #30 tabs 01/16/24 aspirin 81 mg chewable tablet 81 mg PO HS 30 days #30 tabs 01/16/24 calcium acetate 667 mg tablet 2,001 mg (3 x 667 mg) PO TIDM 30 01/16/24 days #90 tabs citalopram 40 mg tablet 20 mg (1/2 x 40 mg) PO QAM 30 days 01/16/24 #30 tabs cyanocobalamin (vitamin B-12) 1,000 mcg IM Q90D 30 days #1 mL 01/16/24 1,000 mcg/mL injection solution melatonin 10 mg tablet 10 mg PO HS 30 days #30 tabs 01/16/24 nebulizer machine #1 ea 07/09/24 Results & Data (ED) Vital Signs Vital Signs - 24 hr 10/04/24 20:00 10/04/24 20:29 10/04/24 20:30 Temperature 36.8 C Temperature Source Temporal Artery Scan Pulse Rate 84 71 Pulse Rate [Left Apical] 69 Pulse Rate from SpO2 Sensor Respiratory Rate 15 Respiratory Effort / Characteristics Non-Labored Spontaneous Respiratory Depth Normal Respiratory Pattern Regular Blood Pressure 156/72 H Blood Pressure [Left Arm] 133/68 Blood Pressure Mean 100 Blood Pressure Mean [Left Arm] 89 Blood Pressure Position [Left Arm] Semi-fowlers Pulse Oximetry 95 92 Oxygen Delivery Method Room Air Room Air Oxygen Flow Rate Sepsis Recent Fever Within 48 Hours No Sepsis New/Unexplained Change in Mental Status No Sepsis Action Taken by Nursing No Action Required Oxygen Flow Rate - Titration Pulse Oximetry Post Tiitration 10/04/24 20:45 10/04/24 20:51 10/04/24 21:06 Temperature Temperature Source Pulse Rate 67 75 69 Pulse Rate [Left Apical] Pulse Rate from SpO2 Sensor Respiratory Rate 15 21 24 Respiratory Effort / Characteristics Respiratory Depth Respiratory Pattern Blood Pressure Blood Pressure [Left Arm] Blood Pressure Mean Blood Pressure Mean [Left Arm] Blood Pressure Position [Left Arm] Pulse Oximetry 92 Oxygen Delivery Method Room Air Oxygen Flow Rate Sepsis Recent Fever Within 48 Hours Sepsis New/Unexplained Change in Mental Status Sepsis Action Taken by Nursing Oxygen Flow Rate - Titration Pulse Oximetry Post Tiitration 10/04/24 21:27 10/04/24 21:30 10/04/24 21:33 Temperature Temperature Source Pulse Rate 70 66 67 Pulse Rate [Left Apical] Pulse Rate from SpO2 Sensor Respiratory Rate 17 19 19 Respiratory Effort / Characteristics Respiratory Depth Respiratory Pattern Blood Pressure 142/66 H Blood Pressure [Left Arm] Blood Pressure Mean 92 Blood Pressure Mean [Left Arm] Blood Pressure Position [Left Arm] Pulse Oximetry 91 Oxygen Delivery Method Room Air Oxygen Flow Rate Sepsis Recent Fever Within 48 Hours Sepsis New/Unexplained Change in Mental Status Sepsis Action Taken by Nursing Oxygen Flow Rate - Titration Pulse Oximetry Post Tiitration 10/04/24 21:40 10/04/24 21:48 10/04/24 21:57 Temperature Temperature Source Pulse Rate 65 68 Pulse Rate [Left Apical] Pulse Rate from SpO2 Sensor Respiratory Rate 20 19 Respiratory Effort / Characteristics Respiratory Depth Respiratory Pattern Blood Pressure Blood Pressure [Left Arm] Blood Pressure Mean Blood Pressure Mean [Left Arm] Blood Pressure Position [Left Arm] Pulse Oximetry 88 L 98 97 Oxygen Delivery Method Nasal Cannula Nasal Cannula Nasal Cannula Oxygen Flow Rate 0 2 2 Sepsis Recent Fever Within 48 Hours Sepsis New/Unexplained Change in Mental Status Sepsis Action Taken by Nursing Oxygen Flow Rate - Titration 2 Pulse Oximetry Post Tiitration 98 10/04/24 22:00 10/04/24 22:03 10/04/24 22:06 Temperature Temperature Source Pulse Rate 72 65 Pulse Rate [Left Apical] Pulse Rate from SpO2 Sensor 70 Respiratory Rate 27 H 17 Respiratory Effort / Characteristics Respiratory Depth Respiratory Pattern Blood Pressure 164/79 H Blood Pressure [Left Arm] Blood Pressure Mean 96 Blood Pressure Mean [Left Arm] Blood Pressure Position [Left Arm] Pulse Oximetry 97 97 Oxygen Delivery Method Nasal Cannula Nasal Cannula Oxygen Flow Rate 2 2 Sepsis Recent Fever Within 48 Hours Sepsis New/Unexplained Change in Mental Status Sepsis Action Taken by Nursing Oxygen Flow Rate - Titration Pulse Oximetry Post Tiitration 10/04/24 22:30 10/04/24 22:30 10/04/24 23:00 Temperature Temperature Source Pulse Rate Pulse Rate [Left Apical] Pulse Rate from SpO2 Sensor Respiratory Rate Respiratory Effort / Characteristics Respiratory Depth Respiratory Pattern Blood Pressure 158/93 H 158/93 H 158/69 H Blood Pressure [Left Arm] Blood Pressure Mean 136 136 114 Blood Pressure Mean [Left Arm] Blood Pressure Position [Left Arm] Pulse Oximetry Oxygen Delivery Method Oxygen Flow Rate Sepsis Recent Fever Within 48 Hours Sepsis New/Unexplained Change in Mental Status Sepsis Action Taken by Nursing Oxygen Flow Rate - Titration Pulse Oximetry Post Tiitration Home Medications Current Medication List: was personally reviewed by me Laboratory Data Attestation: I reviewed the patient's lab results. 10/04/24 21:15 10/04/24 21:15 Lab Results 10/04/24 10/04/24 10/04/24 Range/Units 21:15 22:02 22:45 WBC 9.63 (4.8-10.8) K/ul RBC 2.86 L (4.20-5.40) M/uL Hgb 8.7 L (12.0-16.0) g/dl Hct 27.5 L (37.0-47.0) % MCV 96.2 (80.0-100.0) fL MCH 30.4 (25.0-34.0) pg MCHC 31.6 L (32.0-36.0) g/dL RDW Std Deviation 55.7 H (36.4-46.3) fL RDW Coeff of [place] 16.0 H (11.5-14.5) % Plt Count 254 (130-400) K/uL MPV 10.1 (9.4-12.4) fL Immature Gran % (Auto) 0.3 % Neut % (Auto) 69.7 % Lymph % (Auto) 19.1 % [place] % (Auto) 8.6 % Eos % (Auto) 1.5 % Baso % (Auto) 0.8 % Neut # (Auto) 6.71 H (1.40-6.50) K/uL Lymph # (Auto) 1.84 (1.20-3.40) K/uL [place] # (Auto) 0.83 H (0.11-0.59) K/uL Eos # (Auto) 0.14 (0.00-0.50) K/uL Baso # (Auto) 0.08 (0.00-0.20) K/uL Immature Gran # (Auto) 0.03 (0.01-0.20) K/uL Sodium 133 L (136-145) mmol/L Potassium 4.2 (3.5-5.1) mmol/L Chloride 91 L (98-107) mmol/L Carbon Dioxide 32 (21-32) mmol/L Anion Gap 10 (3-11) BUN 20 (6-23) mg/dl Creatinine 4.54 H* (0.6-1.2) mg/dl Est Cr Clr Drug Dosing 14.4 ml/min eGFR 10.17 BUN/Creatinine Ratio 4.4 L (10-20) Glucose 218 H (70-99(Fasting)) mg/dl Calcium 8.9 (8.6-10.3) mg/dl Phosphorus 3.9 (2.5-4.9) mg/dl Magnesium 2.1 (1.7-2.4) mg/dl Total Bilirubin 0.5 (0.2-1.0) mg/dl AST 47 H (13-39) U/L ALT 19 (7-52) U/L Alkaline Phosphatase 111 H (34-104) U/L Troponin I High Sens 11.5 (0-14) pg/ml Total Protein 6.6 (6.0-8.3) gm/dl Albumin 3.8 (3.4-5.0) gm/dl Globulin 2.8 (2.5-4.0) gm/dl Albumin/Globulin Ratio 1.4 (0.9-2) TSH 2.548 (0.300-4.500) uIu/ml Urine Color Yellow Urine Appearance Turbid A (Clear) Urine pH >= 9.0 H (4.5-7.5) Ur Specific [place] 1.007 (1.000-1.030) Urine Protein 2+ H (Negative) Urine Glucose (UA) Trace H (Negative) Urine Ketones Negative (Negative) Urine Blood 2+ H (Negative) Urine Nitrite Negative (Negative) Urine Bilirubin Negative (Negative) Urine Urobilinogen Negative (Negative) Ur Leukocyte Esterase 3+ H (Negative) Urine WBC (Auto) >50 H (0-5) /hpf Urine RBC (Auto) >20 H (0-2) /hpf U Hyaline Cast (Auto) 0-2 (0-2) /lpf U Epithel Cells (Auto) 11-20 H (0-2) /hpf Urine Bacteria (Auto) 4+ H (None Seen) Adenovirus (PCR) Not Detected (NotDetected) B. pertussis DNA (PCR) Not Detected (NotDetected) B.parapertussis DNA PCR Not Detected (NotDetected) C. pneumoniae DNA (PCR) Not Detected (NotDetected) Coronavirus OC43 (PCR) Not Detected (NotDetected) Coronavirus HKU1 (PCR) Not Detected (NotDetected) Coronavirus 229E (PCR) Not Detected (NotDetected) SARS-CoV-2 (PCR) Not Detected (NotDetected) Coronavirus NL63 (PCR) Not Detected (NotDetected) Human Metapneumovir PCR Not Detected (NotDetected) Influenza Type A (PCR) Not Detected (NotDetected) Influenza Type B (PCR) Not Detected (NotDetected) M. pneumoniae (PCR) Not Detected (NotDetected) Parainfluenza 1 (PCR) Not Detected (NotDetected) Parainfluenza 2 (PCR) Not Detected (NotDetected) Parainfluenza 3 (PCR) Not Detected (NotDetected) Parainfluenza 4 (PCR) Not Detected (NotDetected) RSV (PCR) Not Detected (NotDetected) Entero/Rhino (PCR) DETECTED A (NotDetected) Administered Medications Amiodarone HCl/Dextrose (Nexterone / D5w) 360 mg in 200 mls @ 33.333 mls/hr IV ONE ONE Stop: 10/05/24 04:04 Last Admin: 10/04/24 23:00 Dose: 1 mg/min, 33.3 mls/hr Documented By: BALDEV Co-signed By: YAMILETH Discontinued Medications Amiodarone HCl (Amiodarone Iv Bolus & Drip) 1 each IV NOW STA; Protocol Stop: 10/04/24 21:56 Last Admin: 10/04/24 22:48 Dose: Not Given Documented By: QGV Amiodarone HCl/Dextrose (Nexterone / D5w) 150 mg in 100 mls @ 600 mls/hr IV NOW STA Stop: 10/04/24 22:04 Last Infusion: 10/04/24 22:56 Dose: Infused Documented By: BALDEV Co-signed By: MARIELENA Admin: 10/04/24 22:45 Dose: 600 mls/hr Documented By: QGV Co-signed By: THANG Miscellaneous (Stat Iv Infusion Titration Per Protocol) 1 each N/A NOW STA Stop: 10/04/24 21:56 Last Admin: 10/04/24 22:48 Dose: Not Given Documented By: QGV Imaging Data Radiologist's Impression: Chest X-Ray 10/04/24 20:27 Exam(s): XR CXR 1 VIEW EXAM: XR Chest, 1 View CLINICAL HISTORY: Reason for exam: weak. TECHNIQUE: Frontal view of the chest. COMPARISON: Chest January 09, 2024. FINDINGS: Lungs: Appearance of mild diffuse pulmonary edema likely related to CHF. No pulmonary mass density. Pleural space: Unremarkable. No pneumothorax or pleural fluid. Heart: Cardiomegaly. Mediastinum: Unremarkable. Normal mediastinal contour. Bones/joints: No acute findings. Tubes, lines and devices: Stable implanted cardiac pacer. IMPRESSION: Cardiomegaly with evidence of early CHF. Electronically signed by: Micheal Andino MD 10/04/24 23:04 PM Discharge Plan Visit Data Chief Complaint: Syncope Stated Complaint: SYNCOPE,REF BY URGENT CARE ED Provider: Marco Antonio Escobar Discharge Problem: Syncope, Rhinovirus infection, Dysrhythmia, Acute UTI, Dialysis patient Patient Disposition: Admitted As Inpatient Condition: Serious Forms Stand Alone Forms: [facility] Prescriptions Prescriptions: No Action losartan 50 mg Tablet 50 mg PO DAILY biotin 10 mg Tablet 10 mg PO DAILY albuterol sulfate 0.63 mg/3 mL Solution For Nebulization 0.63 mg INHALATION Q6H PRN (Reason: Wheezing) acetaminophen [Tylenol] 325 mg Tablet 650 mg PO Q6H PRN (Reason: PAIN/FEVER) Children's Multi Vitamins Tablet,Chewable 1 tab PO BID tramadol 50 mg Tablet 50 mg PO Q4H PRN (Reason: Pain) nitroglycerin [Nitrostat] 0.4 mg Tablet, Sublingual 0.4 mg sublingual DIRECTED PRN (Reason: CHEST PAIN) gabapentin 300 mg Capsule 300 mg PO HS omeprazole 20 mg Capsule,Delayed Release(Dr/Ec) 20 mg PO DAILY colestipol 1 gram Tablet 2 g PO QDL PRN (Reason: Diarrhea) diclofenac sodium [Voltaren] 1 % Gel 2 g TOPICAL TID PRN (Reason: Pain) cholecalciferol (vitamin D3) [Vitamin D3] 125 mcg (5,000 unit) Tablet 125 mcg PO DAILY Calcium W/Vitamin D3 1 tab PO BID Rx Instructions: CONCENTRATION 600 MG/20 MCG. atorvastatin 40 mg tablet 40 mg PO QAM carvedilol 12.5 mg tablet 12.5 mg PO AMHS levothyroxine 100 mcg tablet 100 mcg PO DAILYBB insulin glargine [Lantus Solostar U-100 Insulin] 100 unit/mL (3 mL) insulin pen 10 unit SUBCUT QAM ProRenal 8 mg iron-800 mcg-1,000 unit tablet 1 tab PO DAILY citalopram 40 mg tablet 20 mg PO QAM 30 Days Qty: 30 0RF amlodipine 5 mg tablet 5 mg PO QAM 30 Days Qty: 30 0RF cyanocobalamin (vitamin B-12) 1,000 mcg/mL Solution 1,000 mcg IM Q90D 30 Days Qty: 1 0RF aspirin 81 mg Tablet,Chewable 81 mg PO HS 30 Days Qty: 30 0RF melatonin 10 mg Tablet 10 mg PO HS 30 Days Qty: 30 0RF calcium acetate 667 mg Tablet 2,001 mg PO TIDM 30 Days Qty: 90 0RF Rx Instructions: Take 3 capsules by mouth with each meal and 2 capsules by mouth with each snack insulin lispro 100 unit/mL solution See Rx Instructions .ROUTE .COMPLEX Rx Instructions: TAKES 12 UNITS WITH BREAKFAST AND LUNCH, THEN 14 UNITS WITH SUPPER. (DME) nebulizer machine See Rx Instructions .Route .MEDSUPPLY Qty: 1 0RF Rx Instructions: As directed Referrals Referrals: Luis Fernando Rojas MD [Primary Care Provider] - Discharge Problem: Syncope Qualifiers: Syncope type: unspecified Qualified Code(s): R55 - Syncope and collapse Dysrhythmia Qualifiers: Arrhythmia type: unspecified cardiac arrhythmia Qualified Code(s): I49.9 - Cardiac arrhythmia, unspecified
[2024-10-04 21:49] LABS: Albumin Globulin Ratio 1.4 (0.9-2); Albumin Level 3.8 gm/dl (3.4-5.0); BUN Creatinine Ratio 4.4 (10-20); Bilirubin,Total 0.5 mg/dl (0.2-1.0); Calcium 8.9 mg/dl (8.6-10.3); Creatinine Clr Calc Pharmacy 14.4 ml/min; Globulin 2.8 gm/dl (2.5-4.0); Magnesium 2.1 mg/dl (1.7-2.4); Phosphorus 3.9 mg/dl (2.5-4.9); Potassium 4.2 mmol/L (3.5-5.1); Total Protein 6.6 gm/dl (6.0-8.3)
[2024-10-04 21:51] LABS: Troponin I High Sensitivity 11.5 pg/ml (0-14)
[2024-10-04] MEDS ORDERED: 0.2 MICRON FILTER SET 1 EACH IV STA (21:55)
[2024-10-04 22:00] LABS: Basophils # (auto) 0.08 K/uL (0.00-0.20); Basophils % (auto) 0.8 %; Eosinophils # (auto) 0.14 K/uL (0.00-0.50); Eosinophils % (auto) 1.5 %; Hematocrit (blood only) 27.5 % (37.0-47.0); Hemoglobin 8.7 g/dl (12.0-16.0); Immature Granulocytes # (auto) 0.03 K/uL (0.01-0.20); Immature Granulocytes % (auto) 0.3 %; Lymphocytes # (auto) 1.84 K/uL (1.20-3.40); Lymphocytes % (auto) 19.1 %; Mean Corpuscular Hemoglobin 30.4 pg (25.0-34.0); Mean Corpuscular Hgb Conc 31.6 g/dL (32.0-36.0); Mean Corpuscular Volume 96.2 fL (80.0-100.0); Mean Platelet Volume 10.1 fL (9.4-12.4); Monocytes # (auto) 0.83 K/uL (0.11-0.59); Monocytes % (auto) 8.6 %; Neutrophils # (auto) 6.71 K/uL (1.40-6.50); Neutrophils % (auto) 69.7 %; Platelet Count 254 K/uL (130-400); RDW Standard Deviation 55.7 fL (36.4-46.3); Red Blood Count 2.86 M/uL (4.20-5.40); White Blood Count 9.63 K/ul (4.8-10.8)
[2024-10-04 22:05] LABS: Thyroid Stimulating Hormone 2.548 uIu/ml (0.300-4.500)
[2024-10-04] MEDS: AMIODARONE / D5W 150 MG/100 ML BAG IV STA (22:45)
[2024-10-04] MEDS: AMIODARONE IV BOLUS & DRIP IV STA (22:48)
[2024-10-04] MEDS: STAT IV Infusion **Titration per Protocol STA (22:48)
[2024-10-04] MEDS: AMIODARONE / D5W 360 MG/200 ML BAG IV ONE (23:00)
--- NOTE | 2024-10-04 23:05 | XRay Report ---
Exam(s): XR CXR 1 VIEW EXAM: XR Chest, 1 View CLINICAL HISTORY: Reason for exam: weak. TECHNIQUE: Frontal view of the chest. COMPARISON: Chest January 09, 2024. FINDINGS: Lungs: Appearance of mild diffuse pulmonary edema likely related to CHF. No pulmonary mass density. Pleural space: Unremarkable. No pneumothorax or pleural fluid. Heart: Cardiomegaly. Mediastinum: Unremarkable. Normal mediastinal contour. Bones/joints: No acute findings. Tubes, lines and devices: Stable implanted cardiac pacer. IMPRESSION: Cardiomegaly with evidence of early CHF. Electronically signed by: Micheal Andino MD 10/04/24 23:04 PM
[2024-10-04 23:24] LABS: Adenovirus PCR Not Detected (NotDetected); Bordetella parapertussis PCR Not Detected (NotDetected); Bordetella pertussis PCR Not Detected (NotDetected); Chlamydia pneumoniae PCR Not Detected (NotDetected); Coronavirus 229E PCR Not Detected (NotDetected); Coronavirus CoV-2 (COVID19)PCR Not Detected (NotDetected); Coronavirus HKU1 PCR Not Detected (NotDetected); Coronavirus NL63 PCR Not Detected (NotDetected); Coronavirus OC43PCR Not Detected (NotDetected); Human Metapneumovirus PCR Not Detected (NotDetected); Influenza A PCR Not Detected (NotDetected); Influenza B PCR Not Detected (NotDetected); Mycoplasma pneumoniae PCR Not Detected (NotDetected); Parainfluenza Virus 1 PCR Not Detected (NotDetected); Parainfluenza Virus 2 PCR Not Detected (NotDetected); Parainfluenza Virus 3 PCR Not Detected (NotDetected); Parainfluenza Virus 4 PCR Not Detected (NotDetected); Respiratory Syncytial VirusPCR Not Detected (NotDetected); Rhinovirus/Enterovirus PCR DETECTED (NotDetected)
[2024-10-04 23:30] LABS: Appearance Urine Turbid (Clear); Bacteria Urine Automated 4+ (None Seen); Bilirubin Urine Negative (Negative); Blood Urine 2+ (Negative); Cast Urine Automated 0-2 /lpf (0-2); Color Urine Yellow; Glucose Urine UA Trace (Negative); Ketones Urine Negative (Negative); Leukocyte Esterase Urine 3+ (Negative); Nitrite Urine Negative (Negative); Protein Urine 2+ (Negative); RBC Urine Automated >20 /hpf (0-2); Specific Gravity Urine 1.007 (1.000-1.030); Urobilinogen Urine Negative (Negative); WBC Urine Automated >50 /hpf (0-5); pH Urine >= 9.0 (4.5-7.5)
[2024-10-04] MEDS: cefTRIAXone SODIUM 2,000 MG/50 ML BAG IV STA (23:45)
[2024-10-05] MEDS ORDERED: PROMETHAZINE 6.25 MG/50.25 ML BAG IV STA (00:25)
--- NOTE | 2024-10-05 02:33 | History & Physical Report ---
Date of Service October 05, 2024 Assessment & Plan (1) Syncope: Plan: 63-year-old female with past medical history significant for type 2 diabetes, diabetic polyneuropathy, end-stage renal disease on hemodialysis, dyslipidemia, hypothyroidism, diabetic gastroparesis, diabetic retinopathy, obstructive sleep apnea on CPAP, chronic diastolic CHF, sick sinus syndrome, status post pacemaker, paroxysmal atrial tachycardia, pulmonary hypertension, hypertension, GERD, morbid obesity, status post gastric bypass, depression, history of endometrial cancer, CHIDI inhibitor intolerance, recurrent ventral incisional hernia comes because of syncope. Since last month she passed out 5 times. Most of the time when she passed out she was sitting. On one episode she was sitting on table and her head hit the table. Today she had dialysis and was doing okay. After coming home she was trying to nap. When suddenly she did not feel good and she called her and she passed out. She thinks passed out for couple of minutes. After she woke up she was somewhat dizzy and seeing spots for about 10 minutes. No shaking of the body. No biting of tongue. No incontinence. Last couple of days she is having some runny nose, sore throat and cough. No fevers. Since last about 1 week she was feeling shortness of breath with exertion. Make small amount of urine. Last few days she has had diarrhea. Denies any chest pain. No headache. In the ER pacemaker was interrogated and was found to have runs of V. tach's. Seems today's V. tach happened during the episode of syncope. ER discussed with cardiology and started on amiodarone drip. Currently resting comfortably . Syncope Had multiple episodes in the last 1 months And had 1 episode today Pacemaker interrogated and patient had runs of V. tach's Currently on IV amiodarone drip Monitoring telemetry Echo Will serial enzymes Follow labs Cardiac consult for further recommendations Acute UTI Start on Rocephin Will follow cultures Rhinovirus Droplet precautions Supportive care Chronic diastolic CHF Patient has some dyspnea on exertion for last few days Possible from above Volume status with dialysis End-stage renal disease On hemodialysis Diabetes Will cut back on Lantus to 5 units daily as patient currently n.p.o. Sliding scale We will monitor History of sick sinus syndrome History of paroxysmal atrial tachycardia Status post pacemaker Hypertension On amlodipine, Coreg and losartan Will monitor GERD On omeprazole Hypothyroidism On Synthyroid TSH is okay Depression On citalopram Hyperlipidemia On statin History of gastric bypass Obstructive sleep apnea CPAP nightly Anemia of chronic disease Hemoglobin 8.7 Will follow labs DVT prophylaxis Heparin subcu Disposition Telemetry Full code History of Present Illness Chief Complaint: Syncope Primary Care Provider: Luis Fernando Rojas MD 63-year-old female with past medical history significant for type 2 diabetes, diabetic polyneuropathy, end-stage renal disease on hemodialysis, dyslipidemia, hypothyroidism, diabetic gastroparesis, diabetic retinopathy, obstructive sleep apnea on CPAP, chronic diastolic CHF, sick sinus syndrome, status post pacemaker, paroxysmal atrial tachycardia, pulmonary hypertension, hypertension, GERD, morbid obesity, status post gastric bypass, depression, history of endometrial cancer, CHIDI inhibitor intolerance, recurrent ventral incisional hernia comes because of syncope. Since last month she passed out 5 times. Most of the time when she passed out she was sitting. On one episode she was sitting on table and her head hit the table. Today she had dialysis and was doing okay. After coming home she was trying to nap. When suddenly she did not feel good and she called her and she passed out. She thinks passed out for couple of minutes. After she woke up she was somewhat dizzy and seeing spots for about 10 minutes. No shaking of the body. No biting of tongue. No incontinence. Last couple of days she is having some runny nose, sore throat and cough. No fevers. Since last about 1 week she was feeling shortness of breath with exertion. Make small amount of urine. Last few days she has had diarrhea. Denies any chest pain. No headache. In the ER pacemaker was interrogated and was found to have runs of V. tach's. Seems today's V. tach happened during the episode of syncope. ER discussed with cardiology and started on amiodarone drip. Currently resting comfortably . Past medical history. As mentioned above Past surgical history. Abdominal wall hernia repair. Breast biopsy. Colonoscopy. Left heart catheterization. EGD. Pacemaker placement. Laparoscopic procedure on liver. Laparoscopic gastric bypass Chen[place]-Y. Laparoscopic cholecystectomy. Breast biopsy. Left breast mass excision ductal hyperplasia. Right knee arthroscopy. Tonsillectomy and adenoidectomy. Repair of incisional hernia. Revision gastrojejunal anastomosis. Total abdominal hysterectomy with removal of tubes. Social history. . No smoking. No alcohol use. No drug use. Family history. Mother had breast cancer. Ovarian cancer. Hypertension. Father had melanoma. Heart disorder. Stroke. Sister glaucoma. History of CAD. Paternal cousin had breast cancer. Paternal aunt had breast cancer. Paternal aunt had ovarian cancer. Allergies Allergy/AdvReac Type Severity Reaction Status Date / Time CHIDI Inhibitors AdvReac Intermediate COUGH Verified 10/04/24 22:57 Home Medications Medication Instructions Recorded Confirmed Type amlodipine 5 mg tablet 5 mg PO QAM 30 days #30 tabs 01/16/24 10/04/24 Rx aspirin 81 mg chewable tablet 81 mg PO HS 30 days #30 tabs 01/16/24 10/04/24 Rx calcium acetate 667 mg tablet 2,001 mg (3 x 667 mg) PO TIDM 30 01/16/24 10/04/24 Rx days #90 tabs citalopram 40 mg tablet 20 mg (1/2 x 40 mg) PO QAM 30 days 01/16/24 10/04/24 Rx #30 tabs cyanocobalamin (vitamin B-12) 1,000 mcg IM Q90D 30 days #1 mL 01/16/24 10/04/24 Rx 1,000 mcg/mL injection solution melatonin 10 mg tablet 10 mg PO HS 30 days #30 tabs 01/16/24 10/04/24 Rx insulin lispro 100 unit/mL See Rx Instructions .Route .COMPLEX 07/07/24 10/04/24 History subcutaneous solution nebulizer machine #1 ea 07/09/24 Rx Calcium W/Vitamin D3 1 tab PO BID 10/04/24 10/04/24 History acetaminophen 325 mg tablet 650 mg PO Q6H PRN PAIN/FEVER 10/04/24 10/04/24 History (Tylenol) albuterol sulfate 0.63 mg/3 mL 0.63 mg inhalation Q6H PRN Wheezing 10/04/24 10/04/24 History solution for nebulization atorvastatin 40 mg tablet 40 mg PO QAM 10/04/24 10/04/24 History biotin 10 mg tablet 10 mg PO DAILY 10/04/24 10/04/24 History carvedilol 12.5 mg tablet 12.5 mg PO AMHS 10/04/24 10/04/24 History cholecalciferol (vitamin D3) 125 125 mcg PO DAILY 10/04/24 10/04/24 History mcg (5,000 unit) tablet (Vitamin D3) colestipol 1 gram tablet 2 g PO QDL PRN Diarrhea 10/04/24 10/04/24 History diclofenac sodium 1 % topical gel 2 g topical TID PRN Pain 10/04/24 10/04/24 History gabapentin 300 mg capsule 300 mg PO HS 10/04/24 10/04/24 History insulin glargine 100 unit/mL (3 10 unit subcut QAM 10/04/24 10/04/24 History mL) subcutaneous pen (Lantus Solostar U-100 Insulin) levothyroxine 100 mcg tablet 100 mcg PO DAILYBB 10/04/24 10/04/24 History losartan 50 mg tablet 50 mg PO DAILY 10/04/24 10/04/24 History nitroglycerin 0.4 mg sublingual 0.4 mg sublingual DIRECTED PRN 10/04/24 10/04/24 History tablet (Nitrostat) CHEST PAIN omeprazole 20 mg capsule,delayed 20 mg PO DAILY 10/04/24 10/04/24 History release pediatric multivitamin 1 tab PO BID 10/04/24 10/04/24 History tramadol 50 mg tablet 50 mg PO Q4H PRN Pain 10/04/24 10/04/24 History vit B complx, C-iron 8 mg-folic 1 tab PO DAILY 10/04/24 10/04/24 History acid 800 mcg-D3 1,000 unit-zinc tablet (ProRenal) Past Med/Surg History Problem List (Updated 08/09/24 @ 00:05 by Background Mickey) Dialysis patient (Acute) Acute UTI (Acute) Dysrhythmia (Acute) Rhinovirus infection (Acute) Syncope (Acute) Hypertension Rhinovirus infection (Acute) Hypoxia (Acute) Hypo-osmolar hyponatremia Insulin-requiring or dependent type II diabetes mellitus Acute on chronic heart failure with preserved ejection fraction Volume overload Acute bronchitis due to Rhinovirus Acute hypoxic respiratory failure Hypotension of hemodialysis Hyperkalemia Fracture of right tibial plateau Closed right tibial fracture (Acute) ESRD (end stage renal disease) on dialysis (Acute) Fall (Acute) Colon polyps S/P knee surgery (Chronic) DVT prophylaxis Anxiety Anemia Upper GI bleed (Acute) Hematemesis with nausea (Acute) Encounter for pre-operative examination Gastric ulcer COVID-19 (Acute) Acute dyspnea (Acute) Bilateral leg weakness (Acute) Anemia (Acute) Ambulatory dysfunction (Acute) Back pain (Acute) Tremor Obesity ESRD (end stage renal disease) on dialysis (Acute) Mon/Wed/Fri at [facility] in [place]. Pacemaker SSS [employer] follows with dr wiggins Chronic diastolic CHF (congestive heart failure) Depression Hypothyroidism SSS (sick sinus syndrome) Pt admitted for elective pacemaker due to SSS. She underwent procedure without any complications. Monitored over night and discharged home. MINISTERIO on CPAP (Chronic) MDD (major depressive disorder) (Chronic) HLD (hyperlipidemia) (Chronic) HTN (hypertension) (Chronic) Diabetes mellitus, type II (Chronic) IDDM H/O esophagogastroduodenoscopy (Chronic) Medical History ESRD (end stage renal disease) on dialysis Peripheral neuropathy bilateral legs/feet Anxiety History of anesthesia reaction woke up during hysterectomy in 1995 Hiatal hernia Osteoarthritis Degenerative disc disease Chronic back pain Post traumatic stress disorder History of anesthesia reaction when had port inserted needed more medication and could feel everything GERD (gastroesophageal reflux disease) Surgical History History of colonoscopy S/P left knee arthroscopy S/P right knee arthroscopy H/O radical excision of skin lesion melanoma S/P cardiac pacemaker procedure medtronic device, last checked ~2 months ago. Follows with Dr Stevenson S/P arteriovenous (AV) fistula creation Right arm History of vitrectomy History of cataract surgery bilateral History of adenoidectomy History of tonsillectomy H/O umbilical hernia repair open (~November 2022 [facility]) --> went to [facility] for rehab therapy for about 2 weeks. S/P dialysis catheter insertion right side of chest (since removed) S/P [place]-BSO H/O hernia repair Hx of gastric bypass History of cholecystectomy Hx of cardiac cath "2012, negative for CAD " Family History Other Colonic polyp GERD (gastroesophageal reflux disease) No family history of adverse response to anesthesia Social History Smoking Status: Never smoker Second Hand Exposure: No; Do You Dip or Chew Tobacco: No; Hx Alcohol Use: No Hx Substance Use: No Preferred Language: Norwegian Communication Ability: Effective Rn Psych Required: No Beliefs That Will Affect Care: None marital status: Current Living Situation: Spouse Current Living Situation Comment: lives with Other Information That Helps Us Care for You: No Feels Safe at Home: Yes Safety Concerns: Feels Safe At This Time Assistive Devices: None Review of Systems Review of Systems: All systems reviewed & are unremarkable except as noted in HPI & below Physical Exam Physical Exam: General- Not in distress. Head- atraumatic Eyes- PERRL. ENT- oropharynx clear Neck- supple, no JVD. Lungs- clear to auscultation no wheezing or crackles Heart- regular rhythm; no murmur, no gallop. Abdomen- normal bowel sounds, soft, nontender, no distension Extremities- no pretibial edema, no erythema seen Neuro- alert, oriented PERRL, no facial palsy; no dysarthria; moves extremities Results & Data Results & Data Vital Signs (Past 12 Hours) Vital Signs Temp Pulse Pulse Resp BP BP Pulse Ox 10/05/24 00:27 60 10/05/24 00:00 61 20 135/56 L 98 10/04/24 23:00 158/69 H 10/04/24 22:30 158/93 H 10/04/24 22:30 158/93 H 10/04/24 22:06 65 17 97 10/04/24 22:03 72 27 H 97 10/04/24 22:00 164/79 H 10/04/24 21:57 68 19 97 10/04/24 21:48 65 20 98 10/04/24 21:40 88 L 10/04/24 21:33 67 19 142/66 H 91 10/04/24 21:30 66 19 10/04/24 21:27 70 17 10/04/24 21:06 69 24 10/04/24 20:51 75 21 10/04/24 20:45 67 15 92 10/04/24 20:30 71 10/04/24 20:29 69 15 133/68 92 10/04/24 20:00 36.8 C 84 156/72 H 95 O2 Del Method O2 Flow Rate 10/05/24 00:27 10/05/24 00:00 Nasal Cannula 3 10/04/24 23:00 10/04/24 22:30 10/04/24 22:30 10/04/24 22:06 Nasal Cannula 2 10/04/24 22:03 Nasal Cannula 2 10/04/24 22:00 10/04/24 21:57 Nasal Cannula 2 10/04/24 21:48 Nasal Cannula 2 10/04/24 21:40 Nasal Cannula 0 10/04/24 21:33 Room Air 10/04/24 21:30 10/04/24 21:27 10/04/24 21:06 10/04/24 20:51 10/04/24 20:45 Room Air 10/04/24 20:30 10/04/24 20:29 Room Air 10/04/24 20:00 Room Air Diagnostic Findings Laboratory Results WBC 9.63 K/ul (4.8-10.8) 10/04/24 21:15 RBC 2.86 M/uL (4.20-5.40) L 10/04/24 21:15 Hgb 8.7 g/dl (12.0-16.0) L 10/04/24 21:15 Hct 27.5 % (37.0-47.0) L 10/04/24 21:15 MCV 96.2 fL (80.0-100.0) 10/04/24 21:15 MCH 30.4 pg (25.0-34.0) 10/04/24 21:15 MCHC 31.6 g/dL (32.0-36.0) L 10/04/24 21:15 RDW Std Deviation 55.7 fL (36.4-46.3) H 10/04/24 21:15 RDW Coeff of Leatha 16.0 % (11.5-14.5) H 10/04/24 21:15 Plt Count 254 K/uL (130-400) 10/04/24 21:15 MPV 10.1 fL (9.4-12.4) 10/04/24 21:15 Immature Gran % (Auto) 0.3 % 10/04/24 21:15 Neut % (Auto) 69.7 % 10/04/24 21:15 Lymph % (Auto) 19.1 % 10/04/24 21:15 [place] % (Auto) 8.6 % 10/04/24 21:15 Eos % (Auto) 1.5 % 10/04/24 21:15 Baso % (Auto) 0.8 % 10/04/24 21:15 Neut # (Auto) 6.71 K/uL (1.40-6.50) H 10/04/24 21:15 Lymph # (Auto) 1.84 K/uL (1.20-3.40) 10/04/24 21:15 [place] # (Auto) 0.83 K/uL (0.11-0.59) H 10/04/24 21:15 Eos # (Auto) 0.14 K/uL (0.00-0.50) 10/04/24 21:15 Baso # (Auto) 0.08 K/uL (0.00-0.20) 10/04/24 21:15 Immature Gran # (Auto) 0.03 K/uL (0.01-0.20) 10/04/24 21:15 Sodium 133 mmol/L (136-145) L 10/04/24 21:15 Potassium 4.2 mmol/L (3.5-5.1) 10/04/24 21:15 Chloride 91 mmol/L (98-107) L 10/04/24 21:15 Carbon Dioxide 32 mmol/L (21-32) 10/04/24 21:15 Anion Gap 10 (3-11) 10/04/24 21:15 BUN 20 mg/dl (6-23) 10/04/24 21:15 Creatinine 4.54 mg/dl (0.6-1.2) H* 10/04/24 21:15 Est Cr Clr Drug Dosing 14.4 ml/min 10/04/24 21:15 eGFR 10.17 10/04/24 21:15 BUN/Creatinine Ratio 4.4 (10-20) L 10/04/24 21:15 Glucose 218 mg/dl (70-99(Fasting)) H 10/04/24 21:15 Calcium 8.9 mg/dl (8.6-10.3) 10/04/24 21:15 Phosphorus 3.9 mg/dl (2.5-4.9) 10/04/24 21:15 Magnesium 2.1 mg/dl (1.7-2.4) 10/04/24 21:15 Total Bilirubin 0.5 mg/dl (0.2-1.0) 10/04/24 21:15 AST 47 U/L (13-39) H 10/04/24 21:15 ALT 19 U/L (7-52) 10/04/24 21:15 Alkaline Phosphatase 111 U/L (34-104) H 10/04/24 21:15 Troponin I High Sens 11.5 pg/ml (0-14) 10/04/24 21:15 Total Protein 6.6 gm/dl (6.0-8.3) 10/04/24 21:15 Albumin 3.8 gm/dl (3.4-5.0) 10/04/24 21:15 Globulin 2.8 gm/dl (2.5-4.0) 10/04/24 21:15 Albumin/Globulin Ratio 1.4 (0.9-2) 10/04/24 21: TSH 2.548 uIu/ml (0.300-4.500) 10/04/24 21:15 Urine Color Yellow 10/04/24 22:45 Urine Appearance Turbid (Clear) A 10/04/24 22:45 Urine pH >= 9.0 (4.5-7.5) H 10/04/24 22:45 Ur Specific [place] 1.007 (1.000-1.030) 10/04/24 22:45 Urine Protein 2+ (Negative) H 10/04/24 22:45 Urine Glucose (UA) Trace (Negative) H 10/04/24 22:45 Urine Ketones Negative (Negative) 10/04/24:45 Urine Blood 2+ (Negative) H 10/04/24 22:45 Urine Nitrite Negative (Negative) 10/04/24:45 Urine Bilirubin Negative (Negative) 10/04/24 22:45 Urine Urobilinogen Negative (Negative) 10/04/24 22:45 Ur Leukocyte Esterase 3+ (Negative) H 10/04/24 22:45 Urine WBC (Auto) >50 /hpf (0-5) H 10/04/24 22:45 Urine RBC (Auto) >20 /hpf (0-2) H 10/04/24 22:45 U Hyaline Cast (Auto) 0-2 /lpf (0-2) 10/04/24 22:45 U Epithel Cells (Auto) 11-20 /hpf (0-2) H 10/04/24 22:45 Urine Bacteria (Auto) 4+ (None Seen) H 10/04/24 22:45 Adenovirus (PCR) Not Detected (NotDetected) 10/04/24 22:02 B. pertussis DNA (PCR) Not Detected (NotDetected) 10/04/24 22:02 B.parapertussis DNA PCR Not Detected (NotDetected) 10/04/24 22:02 C. pneumoniae DNA (PCR) Not Detected (NotDetected) 10/04/24 22:02 Coronavirus OC43 (PCR) Not Detected (NotDetected) 10/04/24 22:02 Coronavirus HKU1 (PCR) Not Detected (NotDetected) 10/04/24 22:02 Coronavirus 229E (PCR) Not Detected (NotDetected) 10/04/24 22:02 SARS-CoV-2 (PCR) Not Detected (NotDetected) 10/04/24 22:02 Coronavirus NL63 (PCR) Not Detected (NotDetected) 10/04/24 22:02 Human Metapneumovir PCR Not Detected (NotDetected) 10/04/24 22:02 Influenza Type A (PCR) Not Detected (NotDetected) 10/04/24 22:02 Influenza Type B (PCR) Not Detected (NotDetected) 10/04/24 22:02 M. pneumoniae (PCR) Not Detected (NotDetected) 10/04/24 22:02 Parainfluenza 1 (PCR) Not Detected (NotDetected) 10/04/24 22:02 Parainfluenza 2 (PCR) Not Detected (NotDetected) 10/04/24 22:02 Parainfluenza 3 (PCR) Not Detected (NotDetected) 10/04/24 22:02 Parainfluenza 4 (PCR) Not Detected (NotDetected) 10/04/24 22:02 RSV (PCR) Not Detected (NotDetected) 10/04/24 22:02 Entero/Rhino (PCR) DETECTED (NotDetected) A 10/04/24 22:02 Impressions Chest X-Ray 10/04/24 20:27 Exam(s): XR CXR 1 VIEW EXAM: XR Chest, 1 View CLINICAL HISTORY: Reason for exam: weak. TECHNIQUE: Frontal view of the chest. COMPARISON: Chest January 09, 2024. FINDINGS: Lungs: Appearance of mild diffuse pulmonary edema likely related to CHF. No pulmonary mass density. Pleural space: Unremarkable. No pneumothorax or pleural fluid. Heart: Cardiomegaly. Mediastinum: Unremarkable. Normal mediastinal contour. Bones/joints: No acute findings. Tubes, lines and devices: Stable implanted cardiac pacer. IMPRESSION: Cardiomegaly with evidence of early CHF. Electronically signed by: Micheal Andino MD 10/04/24 23:04 PM ECG Additional Comments: ECG AV dual paced rhythm with rate of 80 Code Status & VTE Plan VTE Prophylaxis Plan VTE Prophylaxis will be ordered: Yes (1) Syncope Syncope type: unspecified Qualified Code(s): R55 - Syncope and collapse
[2024-10-05] MEDS ORDERED: GLUCOSE 40% GEL 15 GM TUBE PO PRN (03:06)
[2024-10-05] MEDS ORDERED: CARBOHYDRATES FOR HYPOGLYCEMIA PO PRN (03:06)
[2024-10-05] MEDS ORDERED: GLUCAGON FOR INJ 1 MG VIAL SQ PRN (03:06)
[2024-10-05] MEDS ORDERED: NITROGLYCERIN SL 0.4 MG/TAB TAB SL PRN (03:06)
[2024-10-05] MEDS ORDERED: DICLOFENAC SOD 1% GEL 100 GM TUBE EXT PRN (03:06)
[2024-10-05] MEDS ORDERED: traMADol HCL 50 MG TABLET PO PRN (03:06)
[2024-10-05] MEDS ORDERED: DEXTROSE 50% 50 ML SYRINGE IV PRN (03:06)
[2024-10-05] MEDS ORDERED: GLUCOSE 10 TAB/TUBE PO PRN (03:06)
[2024-10-05] MEDS ORDERED: COLESTIPOL HCL 1 GM TAB PO PRN (03:06)
[2024-10-05] MEDS: AMIODARONE / D5W 360 MG/200 ML BAG IV SCH (04:21)
[2024-10-05] MEDS ORDERED: ALBUTEROL 0.083% NEBU SOLN 3 ML VIAL INH PRN (04:34)
[2024-10-05 04:50] LABS: Eosinophils # (auto) 0.19 K/uL (0.00-0.50); Eosinophils % (auto) 1.9 %; Hematocrit (blood only) 30.5 % (37.0-47.0); Hemoglobin 9.3 g/dl (12.0-16.0); Immature Granulocytes # (auto) 0.02 K/uL (0.01-0.20); Immature Granulocytes % (auto) 0.2 %; Lymphocytes # (auto) 3.22 K/uL (1.20-3.40); Lymphocytes % (auto) 32.9 %; Mean Corpuscular Hemoglobin 29.5 pg (25.0-34.0); Mean Corpuscular Hgb Conc 30.5 g/dL (32.0-36.0); Mean Corpuscular Volume 96.8 fL (80.0-100.0); Mean Platelet Volume 9.8 fL (9.4-12.4); Monocytes # (auto) 0.79 K/uL (0.11-0.59); Monocytes % (auto) 8.1 %; Neutrophils # (auto) 5.46 K/uL (1.40-6.50); Neutrophils % (auto) 55.9 %; Platelet Count 283 K/uL (130-400); RDW Coefficient of Variation 16.3 % (11.5-14.5); RDW Standard Deviation 57.1 fL (36.4-46.3); Red Blood Count 3.15 M/uL (4.20-5.40); White Blood Count 9.78 K/ul (4.8-10.8)
[2024-10-05 05:18] LABS: BUN Creatinine Ratio 4.7 (10-20); Calcium 9.9 mg/dl (8.6-10.3); Creatinine Clr Calc Pharmacy 12.8 ml/min; Magnesium 2.2 mg/dl (1.7-2.4); Potassium 3.8 mmol/L (3.5-5.1); Troponin I High Sensitivity 16.8 pg/ml (0-14)
[2024-10-05 05:23] VITALS: TEMP 98.4
--- OUTSIDE RECORDS SUMMARY | 2024-10-05 05:24 | External Medical Summary | Summary of Care ---
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 2 Active Vitamin D 125 MCG (5000 UT) [...] hemoglobin A1c goal of less than 7.0% ([facility]) Use 4 times daily with insulin 400 Each 3 05/02/2023 5:15 PM EDT 3 Active Calcium Acetate (Phos Binder) 667 MG Oral Capsule (Phoslo) TAKE THREE CAPSULES BY MOUTH WITH EACH MEAL AND TWO CAPSULES WITH SNACKS 1300 Capsule 3 04/23/2024 3:37 PM EDT 3 Active Levothyroxine Sodium 100 MCG Oral Tablet (Levoxyl)Indicat ions:Hypothyroid ism, unspecified type TAKE 1 TABLET BY MOUTH DAILY AT LEAST 30 MINUTES PRIOR TO FIRST MEAL OF THE DAY OR OTHER MEDICATIONS 90 Tablet 3 08/06/2024 3:02 PM EST 4 Active Diclofenac Sodium 1 % External Gel (Voltaren) Apply topically to affected area 3 times a day as needed for Pain. 100 g 2 02/17/2024 2:10 PM EDT 4 Active Citalopram Hydrobromide 20 MG Oral Tablet (CeleXA) Take 1 Tablet by mouth in the morning. Active Omeprazole 20 MG Oral Capsule Delayed Release (PriLOSEC)Indica tions:Gastroesop hageal reflux disease without esophagitis Take 1 Capsule by mouth in the morning. 100 Capsule 3 09/04/2024 8:57 AM EST 4 Active Carvedilol 12.5 MG Oral Tablet (Coreg)Indicatio ns:HTN, goal below 140/90 Take 1 Tablet by mouth in the morning and 1 Tablet before bedtime. 180 Tablet 4 08/21/2024 8:06 AM EST 4 Active OneTouch Verio In Vitro Strip (Glucose Blood) To test blood sugar 4 times daily. 400 Strip 1 04/22/2024 6:47 AM EDT 4 Active OneTouch Delica Lancets 33G To test blood sugar 4 times daily. 400 Each 1 04/22/2024 6:47 AM EDT 4 Active OneTouch Verio w/Device Kit Use as directed. 1 Kit 04/22/2024 6:47 AM EDT 4 Active Albuterol Sulfate 0.63 MG/3ML Inhalation Nebulization Solution (Accuneb) Inhale 1 Vial via nebulizer every 6 hours as needed for Wheezing. Active Benzonatate 100 MG Oral Capsule (Tessalmarybel Perlwendi) Take 1 Capsule by mouth 3 times a day as needed for Cough. Do not cut, crush, or chew. 50 Capsule 1 4 Active Additional Information Patient not taking.Reported on 09/16/2024 Gabapentin 300 MG Oral Capsule (Neurontin) Take 1 Capsule by mouth at bedtime. Follow up with your primary care provider for further management. 90 Capsule 3 09/20/2024 2:09 PM EST 5 Active amLODIPine Besylate 5 MG Oral Tablet (Norvasc) TAKE ONE TABLET BY MOUTH EVERY DAY IN THE MORNING 90 Tablet 1 08/21/2024 8:06 AM EST 5 Active Atorvastatin Calcium 40 MG Oral Tablet (Lipitor)Indicat ions:Dyslipidemi a, goal LDL below 100 Take 1 Tablet by mouth in the morning. 90 Tablet 1 08/06/2024 3:02 PM EST 5 Active Colestipol HCl 1 GM Oral Tablet (Colestid) take 2 tablets by mouth at noon daily if needed for diarrhea 180 Tablet 3 08/11/2024 3:46 PM EST 5 Active traMADol HCl 50 MG Oral Tablet (Ultram) Take 1 Tablet by mouth every 4 hours as needed for Pain, Severe. Active Insulin Glargine Solostar 100 UNIT/ML Subcutaneous Solution Pen-injector (Basaglar KwikPen)Indicati ons:Type 2 diabetes mellitus with hemoglobin A1c goal of less than 7.0% ([facility]) Inject 10 Units under the skin in the morning. 15 mL 4 5 Active Insulin Lispro (1 Unit Dial) 100 UNIT/ML Subcutaneous Solution Pen-injector (HumaLOG KwikPen)Indicati ons:Type 2 diabetes mellitus with hemoglobin A1c goal of less than 7.0% ([facility]) Inject 10 units with breakfast, 10 units with lunch and 2 units with supper. Max dose of 22 units per day 30 mL 4 5 Active Losartan Potassium 50 MG Oral Tablet (Cozaar)Indicati ons:End stage renal disease on dialysis ([facility]),HTN, goal below 140/90 Take 1 Tablet by mouth in the morning. 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 Magallanes. Renae-Pao-Briana from 07-25. Has dialysis catheter in the [...] 8:45 AM EDT): Gabapentin 600 [facility] at [facility] Assessment & Plan (05/07/2021 11:11 AM [...] as of this encounter (statuses as of 09/21/2024) Resolved Problems Problem Noted Date Diagnosed Date [...] Insulin long-term use 11/19/20182018 Overview (05/20/2019): Duplicate detention (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 insulin 11/19/2018 10/08/2022 Morbid [...] 05/21/2018 09/23/2018 Breast cancer screening 03/10/2018 1107/2017 Overview (03/10/2018): In conclusion, our recommendation for [...] T-tube placement 04/16/2017 05/29/2017 [employer] Other*[id number] 04/13/2013 08/27/2016 Overview (04/13/2013): Study Title: Genomic Markers for Patients with Cardiovascular Disease Project # [id number] Administrative Tech: Siena Laws MD [phone] Hypertensive heart disease 03/25/2013 1 07/29/2016 Neuropathy, [...] as of this encounter (statuses as of 09/21/2024) Immunizations Name Administration Dates Next Due COVID-19 mRNA, LNP-s, No Pre serve, 2-Dose Series (Moderna) 04/09/2021,09/23/2020,08/19/2020 COVID-19, LNP-s, No Preserve , Espinoza-sucrose, Ages 12+ (Pfizer) 01/08/2022 COVID-19, MRNA-LNP, PF, 30 M CG/0.3 mL, 12 YRS AND ABOVE, IM (PFIZER-Comirnaty) 06/02/2024 HEPATITIS B VACCINE, RECOMB, 20 MCG/ML, ADULT (HEPLISAV-B) 09/05/2021,05/09/2021,04/04/2021,02/18 Hepatitis B, 20+ yrs 09/16/2018,04/14/2018,03/1104/11/2018 Pneumococcal Conjugate Vacci ne, 20-valent ([id number]) 06/22/2024,12/02/2023(Deferred: - pt states she's already received) [...] Sign Reading Time Taken Comments Blood Pressure 138/76 09/21/2024 10:39 AM EST Pulse 75 09/21/2024 10:39 AM EST Temperature 37 C (98.6 F) 09/21/2024 10:39 AM EST Respiratory Rate 18 09/21/2024 10:39 AM EST Oxygen Saturation 92% 09/21/2024 10:39 AM EST Inhaled Oxygen Concentration - - [...] documented in this encounter Progress Notes * Heidi Garcia RN - 09/21/2024 10:35 AM EST Current Concerns: Pt seen for return RNCM Wounds on right hand are healed over Denies pain States her bowels have been working better, not as much diarrhea since starting Colestid Also takes imodium at first sign of diarrhea and states it has been working Recently had a change to bp meds - has been off of hydralazine for a week and half - this has been discontinued and will be starting Losartan when arrives from mail order Had fistulogram last week - reports no issues Also had two teeth pulled - had a cracked took and was starting to be painful so two removed - no issues with that now She does report two falls after the procedure - feels she was just still out of it from sedation from the extraction Pt reports she started to have fainting episodes again - had an episode at home a few weeks ago- was here and states she was out for about a minute She then went to a restaurant and fainted while sitting at the table She reports engine specialist is aware and thinks it may be from anemia - she states she is trying to increase her protein She has labs ordered and is going to go to lab soon to have everything checked. - she is a hard stick so needs to prepare and try to drink more to facilitate easier access Physical Exam: Physical Exam Constitutional: General: She [...] Review of Systems Constitutional: Negative. HENT: Negative. Respiratory: Negative. Cardiovascular: Negative. Gastrointestinal: Positive for diarrhea (comes and goes). Genitourinary: Negative. Musculoskeletal: Positive for arthralgias and gait problem. Psychiatric/Behavioral: Negative. Care Plan Goal Progress: GS - Patient/caregiver will verbalize proper technique in daily weight monitoring with heart failure. (Progressing) Start: 04/20/24 Expected End: 12/17/24 GS - Patient/caregiver will verbalize importance of fluid restriction compliance in the management of heart failure (Progressing) Start: 04/20/24 Expected End: 12/17/24 GS - Patient/caregiver will verbalize an understanding of diagnosis, treatment and self management of heart failure (Progressing) Start: 04/20/24 Expected End: 12/17/24 GS - Patient/caregiver will notify provider of edema. (Progressing) Start: 04/20/24 Expected End: 12/17/24 GS - Patient/caregiver will notify provider with weight gain with heart failure as per established limits set by provider. (Progressing) Start: 04/20/24 Expected End: 12/17/24 Orders Placed: No orders of the defined types were placed in this encounter. Medications Given: Care Gaps: Care Gaps Care gaps closed this contact: Education;Medications;Plan of Care (POC) (09/21/24 110) Type of education: Clinical/disease;Educated on the benefits of connecting with their PCP () Type of medication care gap: Medication adherence (09/21/241105) Type of plan of care (POC) care gap: Adjustment of plan of care (POC) and/or Integrated Care Plan (ICP);Education and review of exacerbation plan (09/21/241105) documented in this encounter Plan of Treatment Upcoming Encounters Date Type Department Care Team (Late st Contact Info) Description 09/23/2024 10:50 AM EST Telemedicine Pharmacy, [facility] [address] [facility] [place] [phone] [address] [facility] [address] [facility] [address] 09/30/2024 9:45 AM EDT Imaging Radiology [address] [place] [phone] 09/30/2024 11:00 AM EDT Office Visit Podiatry [facility] [address] [place] [phone] Calli Avila DPM [address] [place] [address] 10/14/2024 2:50 PM EDT Office [facility] [place] [facility] [place] [address] Sterling Cates MD [address] [facility] [address] 11/02/2024 9:30 AM EDT Home Visit [facility], [facility] [address] [place] [address] Heidi Garcia, RN [address] [facility] [place] [address] 11/30/2024 10:00 AM EDT Nurse Only Nutrition & Weight Management, [facility] [address] [facility] [place] [address] [place], Nurse Gi Nutrition [facility] [address] [facility] [place] [address] 12/09/2024 12:15 PM EDT Hospital Encounter OR GL, Operating Room, [facility] - 4th Floor [facility] [phone] Himanshu Rivero, [address] [facility] [place] [address] 12/09/2024 12:15 PM EDT - 12/09/2024 12:56 PM EDT Surgery OR GL, Operating Room, [facility] - 4th Floor [address] [facility] [place] [phone] Himanshu Rivero, [address] [facility] [place] [address] COLONOSCOPY FLEXIBLE PROXIMAL DIAGNOSTIC 12/21/2024 10:30 AM EDT Office Visit Gastroenterology, [facility] [address] [facility] [place] [address] Emi Queen CRNP [address] [facility] [place] [address] 03/10/2025 1:20 PM EDT Office Visit [facility]ology[facility] [address] [place] [phone] Joanne Parks PA-C [address] [place] [address] [place] [address] Scheduled Procedures Name Priority Associated Diagnoses Date/Ti me COLONOSCOPY FLEXIBLE PROXIMAL DIAGNOSTIC History of colonic polyps Diarrhea 12/09/2024 12:15 PM EDT Health Maintenance Due Date Last Done Comments Cologuard 12/23/2003 Fecal Occult Blood Test 12/23/2003 Sigmoidoscopy 12/23/2003 TSH 01/23/2023 01/23/2022, 07/21, 05/18/2021, Additional history exists Mammogram 07/08/2024 07/08/2023, 06/20, 04/18/2022, Additional history exists Depression Monitoring 08/14/2024 08/14/2023 HbA1c 11/05/2024 05/07/2024, 11/19, 07/01/2022, Additional history exists COVID-19 Vaccine (6 - Moderna risk 2023- season) 2024 06/02/2024, 01/08/2022, 04/09/2021, Additional history exists Diabetic Eye Exam 01/04/2025 [...] Completed 05/05/2024, 04/17/2023, 04/20/2022, Additional history exists Pneumococcal Vaccine: 50+ Years Completed 06/22/2024, 08/30/2014, 09/18/2013, Additional history exists HPV (Gardasil) Vaccine Aged Out No lo nger eligible based on patient's age to complete this topic MENINGOCOCCAL (MENACTRA/MENVEO) Aged Out No longer eligible based on patient's age to complete this topic Meningitis B Vaccine (Bexsero/Trumemba) Aged Out No longer eligible based on patient's age to complete this topic documented as of this encounter Medical Devices Implanted Type Area Two Way Radio Technician Device Identifier Shelf Expiration Date Model / Serial / Lot Coil Vortex 35 Pltinm [id number] - [id number] Implanted:Qty: 1 on 11/27/2021 by Sterling Cates MD at [place] [facility] [place]: Upper Arm [employer] : NEURO INTR [id number] 08/15/2024 [id number] / / [id number] Coil Vortex 35 Pltinm [id number] - [id number] Implanted:Qty: 1 on 11/27/2021 by Sterling Cates MD at [place] [facility] [place] Right: Upper Arm [employer] : NEURO INTR [id number] 08/15/2024 [id number] / / [id number] Coil Vortex 35 Pltinm [id number] - [id number] Implanted:Qty: 1 on 11/27/2021 by Sterling Cates MD at [place] [facility] [place] Right: Upper Arm [employer] : NEURO INTR [id number] 08/15/2024 [id number] / / [id number] Coil Vortex 35 Pltinm [id number] - [id number] Implanted:Qty: 1 on 11/27/2021 by Sterling Cates MD at [place] [facility] [place] Right: Upper Arm [employer] : NEURO INTR [id number] 05/16/2024 [id number] / / [id number] Azur 35 Detachable 5mm 11cm - [id number] Implanted:Qty: 1 on 03/19/2022 by Jose Devine MD at [place] [facility] [place] Right: Wrist IDx MED[employer] [id number] 10/18/2025 [id number] / / [id number] Azur 35 Detachable 5mm 11cm - [id number] Implanted:Qty: 1 on 03/19/2022 by Jose Devine MD at [place] [facility] [place] Right: Wrist [employer] [id number] 06/19/2026 [id number] / / [id number] Mesh Flat Sheet 10x14 [id number] - [id number] Implanted:Qty: 1 on 12/11/2022 by Eros Dash MD at [place] [facility] [place] N/A: Abdomen CR BARD : DAVOL [id number] 06/17/2027 [id number] / / [id number] documented as of this encounter Advance Directives Documents on File Type Date Recorded Patient Newspaper Manager Expl anation POLST 11/13/2020 POLST [place] [...] Finley Spouse Health Care Agent Care Teams Yeast Cake Cutter Relationship Specialty Start Date End Date Luis Fernando Rojas MD [facility] [address] PCP - General Family Medicine 09/23/16 documented as of this encounter
--- OUTSIDE RECORDS SUMMARY | 2024-10-05 05:24 | External Medical Summary | Summary of Care ---
Author Name Unknown Organization [facility] Address [address] [place] [address] Phone [phone] Care Team Providers Care Medical Reimbursement Manager Name Role Phone Luis Fernando Rojas MD Primary Care Provider [phone] Encounter Details Date Type Department Care Team (Late st Contact Info) Description 09/30/2024 9:45 AM EDT Imaging Radiology [address] [phone] Screening mammogram for breast cancer; Lump in central portion of right breast Allergies Active Allergy Reactions Criticality Noted Date Comments Salvador Inhibitors Other (Please comment),Cough High HyperKalemia documented as of this encounter (statuses as of 10/03/2024) Medications Melatonin 10 MG Tablet Take 12 [...] than 7.0% ([facility]) Use 4 times daily with insulin [...] Wheezing. Active Benzonatate 100 MG Oral Capsule (Tessalon Perles) Take 1 Capsule by mouth 3 times [...] 7.0% ([facility]) Inject 10 Units under the skin in the morning. 15 mL 4 5 Active Insulin Lispro (1 Unit Dial) 100 UNIT/ML Subcutaneous Solution Pen-injector (HumaLOG KwikPen)Indicati ons:Type 2 diabetes mellitus with hemoglobin A1c goal of less than 7.0% ([facility]) Inject 10 units with breakfast, 10 units with lunch and 2 units with supper. Max dose of 22 units per day 30 mL 4 5 Active Losartan Potassium 50 MG Oral Tablet (Cozaar)Indicati ons:End stage renal disease on dialysis ([facility]),HTN, goal below 140/90 Take 1 Tablet by mouth in the morning. 90 Tablet 3 5 Active Hospital, Clinic, or Other Facility Administered Medication Ordered Dose Route Frequency Start Date End Date Status vitamin b-12 (Cyanocobalamin) inj 1,000 mcgIndications:S/P gastric bypass 1000 mcg IM [id number] 10/15/2022 07/19/2025 Active vitamin b-12 (Cyanocobalamin) inj 1,000 mcgIndications:Morbid obesity with BMI of 40.0-44.9, adult ([facility]),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 [id number] 10/17/2023 12/11/19 25 Active documented as of this encounter (statuses as of 10/03/2024) Active Problems Problem Noted Date Diagnosed Date [...] 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 Magallanes. 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 [...] renal 05/21/2018 09/23/2018 Breast cancer screening 03/10/2018 11/07/2017 Overview (03/10/2018): In conclusion, our recommendation for [...] T-tube placement 04/16/2017 05/29/2017 [employer] Other*[id number] 04/13/2013 08/27/2016 Overview (04/13/2013): Study Title: Genomic Markers for Patients with Cardiovascular Disease Project # [id number] Maintenance Machinist: Siena Laws MD [phone] Hypertensive heart disease 03/25/2013 1 07/29/2016 Neuropathy, [...] as of this encounter (statuses as of 10/03/2024) Immunizations Name Administration Dates Next Due COVID-19 mRNA, LNP-s, No Pre serve, 2-Dose Series (Moderna) 04/09/2021,09/23/2020,08/19/2020 COVID-19, LNP-s, No Preserve , Espinoza-sucrose, Ages 12+ (Pfizer) 01/08/2022 COVID-19, MRNA-LNP, PF, 30 M CG/0.3 mL, 12 YRS AND ABOVE, IM (PFIZER-Comirnaty) 06/02/2024 HEPATITIS B VACCINE, RECOMB, 20 MCG/ML, ADULT (HEPLISAV-B) 09/05/2021,05/09/2021,04/04/2021,02/18 Hepatitis B, 20+ yrs 09/16/2018,04/14/2018,03/1104/11/2018 Pneumococcal Conjugate Vacci ne, 20-valent ([id number]) 06/22/2024,12/02/2023(Deferred: - pt states she's already received) [...] No 08/14/2023 Does the household have a [facility] source of income? (Household - for [...] 6:51 PM EDT Rabia Wiley RN * Do you have difficulty dressing [...] Rabia Wiley RN documented in this encounter Plan of Treatment Upcoming Encounters Date Type Department Care Team (Late st Contact Info) Description 10/05/2024 9:00 AM EDT Office Visit Podiatry [facility] [address] [place] [phone] Calli Avila DPM [address] [place] [address] 10/14/2024 11:40 AM EDT Telemedicine Pharmacy, [facility] [address] [phone] [place] [address] 11/02/2024 9:30 AM EDT Home Visit [facility], [facility] [address] [place] [address] Heidi Garcia, RN [address] [place] [address] 11/25/2024 10:00 AM EDT Imaging Radiology [facility] [address] [facility] [address] 11/30/2024 10:00 AM EDT Nurse Only Nutrition & Weight Management, [facility] [address] [facility] [place] [address] Boni, Nurse Gi Nutrition [facility] [address] [facility] [place] [address] 12/09/2024 12:15 PM EDT Hospital Encounter [facility], Operating Room, [facility] [address] [phone] Himanshu Rivero, [address] [place] [address] 12/09/2024 12:15 PM EDT - 12/09/2024 12:56 PM EDT Surgery OR [facility], Operating Room, [facility] - 4[facility] Floor [address] [facility] [place] [phone] Himanshu Rivero, [address] [place] [address] COLONOSCOPY FLEXIBLE PROXIMAL DIAGNOSTIC 12/21/2024 10:30 AM EDT Office Visit Gastroenterology, [facility] [address] [facility] [place] [address] Emi Queen CRNP [address] [place] [address] 03/10/2025 1:20 PM EDT Office Visit [facility] [address] [place] [phone] Joanne Parks PA-C [address] [place] [address] [place] [address] Scheduled Procedures Name Priority Associated Diagnoses Date/Ti me COLONOSCOPY FLEXIBLE PROXIMAL DIAGNOSTIC History of colonic polyps Diarrhea 12/09/2024 12:15 PM EDT Health Maintenance Due Date Last Done Comments Cologuard 12/23/2003 Fecal Occult Blood Test 12/23/2003 Sigmoidoscopy 12/23/2003 TSH 01/23/2023 01/23/2022, 07/21, 05/18/2021, Additional history exists Depression Monitoring 08/14/2024 08/14/2023 HbA1c 11/05/2024 05/07/2024, 11/19, 07/01/2022, Additional history exists COVID-19 Vaccine (6 - Moderna risk 2023- season) 2024 06/02/2024, 01/08/2022, 04/09/2021, Additional history exists Diabetic Eye Exam 01/04/2025 01/05/2024, , 12/13/2021, Additional history exists Mammogram 09/30/2025 09/30/2024, 06/20, 07/08/2023, Additional history exists Colonoscopy 02/28/2028 02/27/2023, 11/19, [...] this encounter Medical Devices Implanted Type Area Chairperson Anesthesiology Device Identifier Shelf Expiration Date Model / Serial / Lot Coil Vortex 35 Pltinm [id number] - [id number] Implanted:Qty: 1 on 11/27/2021 by Sterling Cates [place] [facility] [place]: Upper Arm [employer] : NEURO INTR [id number] 08/15/2024 [id number] / [id number] Coil Vortex 35 Pltinm [id number] - [id number] Implanted:Qty: 1 on 11/27/2021 by Sterling Cates [place] [facility] [place]: Upper Arm [employer] : NEURO INTR [id number] 08/15/2024 [id number] / / [id number] Coil Vortex 35 Pltinm [id number] - [id number] Implanted:Qty: 1 on 11/27/2021 by Sterling Cates MD [place] [facility] [place]: Upper Arm [employer] : NEURO INTR [id number] 08/15/2024 [id number] Coil Vortex 35 Pltinm [id number] - [id number] Implanted:Qty: 1 on 11/27/2021 by Sterling Cates MD [place] [facility]: Upper Arm [employer] : NEURO INTR [id number] 05/16/2024 [id number] / [id number] Azur 35 Detachable 5mm 11cm - [id number] Implanted:Qty: 1 on 03/19/2022 by Jose Devine [place] [facility]: Wrist [employer] [id number] 10/18/2025 [id number] / / [id number] Azur 35 Detachable 5mm 11cm - [id number] Implanted:Qty: 1 on 03/19/2022 by Jose Devine MD [place] [facility] [place]: Wrist [employer] [id number] 06/19/2026 [id number] / / [id number] Mesh Flat Sheet 10x14 [id number] - [id number] Implanted:Qty: 1 on 12/11/2022 by Eros Dash MD [place] [facility] N/A: Abdomen CR BARD : DAVOL [id number] 06/17/2027 [id number] / / [id number] documented as of this encounter Procedures Procedure Name Priority Date/Time Associated Diagnosis Comments MAMMOGRAM DIAGNOSTIC FANNIE BILATERAL Routine 09/30/2024 10:46 AM EDT Lump in central portion of right breast documented in this encounter Results * US BREAST LIMITED RIGHT (09/30/2024 11:46 AM EDT) Anatomical Region Laterality Modality Breast Right Ultrasound Narrative 09/30/2024 4:52 PM EDT Result MAMMOGRAM DIAGNOSTIC FANNIE BILATERAL US BREAST LIMITED RIGHT History Lump in central portion of right breast Family medical history includes breast cancer in 3 relatives (aunt (paternal), cousin (paternal), mother (age of onset: 68)), colon cancer in grandmother (maternal) (age of onset: 45), and ovarian cancer in 2 relatives (aunt (paternal) (age of onset: 30), mother). Films Compared 07/08/2023 MAMMOGRAM SCREENING FANNIE BILATERAL, 04/18/2022 MAMMOGRAM SCREENING FANNIE BILATERAL, 04/05/2021 MAMMOGRAM SCREENING FANNIE BILATERAL, 04/04/2020 MAMMOGRAM SCREENING FANNIE BILATERAL, and 01/20/2019 MAMMOGRAM SCREENING FANNIE BILATERAL Findings Left MAMMOGRAM DIAGNOSTIC FANNIE The breasts are heterogeneously dense, which may obscure small masses. There is no evidence of suspicious masses, calcifications, or other abnormal findings in the left breast. Right MAMMOGRAM DIAGNOSTIC FANNIE US BREAST LIMITED RIGHT The breasts are heterogeneously dense, which may obscure small masses. The breast tissue has a homogeneous background echotexture - fibroglandular. No discrete mass or clustered microcalcifications suspicious for malignancy are identified on mammogram. Targeted ultrasound demonstrates a 3.2 x 1.4 x 4.2 cm avascular mixed echogenicity region with hyperechoic, isoechoic and cystic component in the region of palpable lump as indicated by patient (marked with a skin marker at the time of mammogram) at 2 o'clock 13 cm from nipple. Findings are suggestive of breast bruise and organizing hematoma/seromas. Follow-up ultrasound in 6-8 weeks would be helpful for further evaluation. Impression Left MAMMOGRAM DIAGNOSTIC FANNIE No mammographic evidence of malignancy. Right MAMMOGRAM DIAGNOSTIC FANNIE US BREAST LIMITED RIGHT Probable breast bruise. Please see comments above. Short interval follow-up ultrasound is advised in 6-8 weeks for further evaluation. BI-RADS Category: 3 - Probably Benign. Recommendation Clinical management and follow up of "palpable lump" is advised as deemed clinically necessary. Patient is advised to follow up with referring clinician. Short interval Follow-up ultrasound in 6-8 weeks is recommended for the right breast. Follow-up left mammogram is advised in 1 year or sooner if warranted clinically. The above findings and recommendations were discussed and understood by the patient. Digital breast tomosynthesis was performed. This digital mammogram has been analyzed with the computer aided detection system. Breast tissue can be either dense or not dense. Dense tissue makes it harder to find breast cancer on a mammogram and also raises the risk of developing breast cancer. Your breast tissue is dense. In some people with dense tissue, other imaging tests in addition to a mammogram may help find cancers. Talk to your healthcare provider about breast density, risks for breast cancer, and your individual situation. This examination was performed at Radiology [facility], [address] [place] [address] [place] [address]. [phone] us Luis Fernando Rojas MD RAD ULTRASOUND Final Result * MAMMOGRAM DIAGNOSTIC FANNIE BILATERAL (09/30/2024 10:46 AM EDT) Anatomical Region Laterality Modality Breast Bilateral Mammography Narrative 09/30/2024 4:52 PM EDT Result MAMMOGRAM DIAGNOSTIC FANNIE BILATERAL US BREAST LIMITED RIGHT History Lump in central portion of right breast Family medical history includes breast cancer in 3 relatives (aunt (paternal), cousin (paternal), mother (age of onset: 68)), colon cancer in grandmother (maternal) (age of onset: 45), and ovarian cancer in 2 relatives (aunt (paternal) (age of onset: 30), mother). Films Compared 07/08/2023 MAMMOGRAM SCREENING FANNIE BILATERAL, 04/18/2022 MAMMOGRAM SCREENING FANNIE BILATERAL, 04/05/2021 MAMMOGRAM SCREENING FANNIE BILATERAL, 04/04/2020 MAMMOGRAM SCREENING FANNIE BILATERAL, and 01/20/2019 MAMMOGRAM SCREENING FANNIE BILATERAL Findings Left MAMMOGRAM DIAGNOSTIC FANNIE The breasts are heterogeneously dense, which may obscure small masses. There is no evidence of suspicious masses, calcifications, or other abnormal findings in the left breast. Right MAMMOGRAM DIAGNOSTIC FANNIE US BREAST LIMITED RIGHT The breasts are heterogeneously dense, which may obscure small masses. The breast tissue has a homogeneous background echotexture - fibroglandular. No discrete mass or clustered microcalcifications suspicious for malignancy are identified on mammogram. Targeted ultrasound demonstrates a 3.2 x 1.4 x 4.2 cm avascular mixed echogenicity region with hyperechoic, isoechoic and cystic component in the region of palpable lump as indicated by patient (marked with a skin marker at the time of mammogram) at 2 o'clock 13 cm from nipple. Findings are suggestive of breast bruise and organizing hematoma/seromas. Follow-up ultrasound in 6-8 weeks would be helpful for further evaluation. Impression Left MAMMOGRAM DIAGNOSTIC FANNIE No mammographic evidence of malignancy. Right MAMMOGRAM DIAGNOSTIC FANNIE US BREAST LIMITED RIGHT Probable breast bruise. Please see comments above. Short interval follow-up ultrasound is advised in 6-8 weeks for further evaluation. BI-RADS Category: 3 - Probably Benign. Recommendation Clinical management and follow up of "palpable lump" is advised as deemed clinically necessary. Patient is advised to follow up with referring clinician. Short interval Follow-up ultrasound in 6-8 weeks is recommended for the right breast. Follow-up left mammogram is advised in 1 year or sooner if warranted clinically. The above findings and recommendations were discussed and understood by the patient. Digital breast tomosynthesis was performed. This digital mammogram has been analyzed with the computer aided detection system. Breast tissue can be either dense or not dense. Dense tissue makes it harder to find breast cancer on a mammogram and also raises the risk of developing breast cancer. Your breast tissue is dense. In some people with dense tissue, other imaging tests in addition to a mammogram may help find cancers. Talk to your healthcare provider about breast density, risks for breast cancer, and your individual situation. This examination was performed at Radiology [facility], [address] [place] [address]. [phone] Luis Fernando Rojas MD RAD MAMMOGRAPHY Final Result documented in this encounter Visit Diagnoses Diagnosis [...] hypothyroidism Malignant melanoma of right upper extremity ([facility]) Aortic atherosclerosis ([facility]) Atherosclerosis of aorta Diabetic polyneuropathy associated with type 2 diabetes mellitus ([facility]) Advanced care planning/counseling discussion- Primary Other specified counseling Hypertensive 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 congestive heart failure and stage 5 chronic kidney disease on chronic dialysis (HCC) Presence of cardiac pacemaker Cardiac pacemaker in situ SSS (sick sinus syndrome) ([facility]) Sinoatrial node dysfunction MINISTERIO on CPAP Obstructive sleep apnea (adult) (pediatric) Hypothyroidism (acquired) Unspecified hypothyroidism Type 2 diabetes mellitus 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 dialysis, with long-term current use of insulin ([facility]) S/P gastric bypass Bariatric surgery status ESRD (end stage renal disease) on dialysis ([facility]) End stage renal disease Recurrent ventral incisional hernia Incisional hernia without mention of obstruction or gangrene NO SHOW/FAILED TO KEEP APPOINTMENT- Primary Chronic diastolic heart failure (HCC)- Primary Chronic diastolic heart failure HTN, goal below 140/90 Unspecified essential hypertension Type 2 diabetes mellitus with hemoglobin A1c goal of less than 7.0% ([facility]) Hypothyroidism (acquired) Unspecified hypothyroidism Dyslipidemia, goal LDL below 100 Other and unspecified hyperlipidemia Major depressive disorder, single episode, moderate ([facility]) Major depressive disorder, single episode, moderate 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, with long-term current use of insulin (HCC) Hyperparathyroidism, secondary renal (HCC) Secondary hyperparathyroidism (of renal origin) End stage renal disease on dialysis (HCC) End stage renal disease MINISTERIO on CPAP Obstructive sleep apnea (adult) (pediatric) Diarrhea, unspecified type Screening mammogram for breast cancer Lump in central portion of right breast Breast lump in female Lump or mass in breast History of colonic polyps Personal history of colonic polyps Diarrhea documented in this encounter Advance Directives Documents on File Type Date Recorded Patient Personnel Research Psychologist Expl anation POLST 11/13/2020 POLST [place]IA [...] Finley Spouse Health Care Agent Care Teams Medical Reimbursement Manager Relationship Specialty Start Date End Date Luis Fernando Rojas MD [address] [place] [address] PCP - General Family Medicine 09/23/16 documented as of this encounter
--- OUTSIDE RECORDS SUMMARY | 2024-10-05 05:24 | External Medical Summary | Summary of Care ---
Author Name Unknown Organization [facility] Address [address] [place] [address] Phone [phone] Care Team Providers Care Earth Moving Machine Operator Name Role Phone Luis Fernando Rojas MD Primary Care Provider [phone] Reason for Visit * Reason Onset Date Comments [facility]: Maintenance 09/22/2024 Encounter Details Date Type Department Care Team (Late st Contact Info) Description 09/22/2024 Telephone [facility], [place] [address] [place] [address] Blanche Paul, MINISTERIO [address] [place] [address] [facility]: Maintenance Allergies Active Allergy Reactions Criticality Noted Date Comments Salvador Inhibitors Other (Please comment),Cough High HyperKalemia documented as of this encounter (statuses as of 09/22/2024) Medications Melatonin 10 MG Tablet Take 12 [...] 7.0% ([facility]) Use 4 times daily with insulin 400 [...] goal of less than 7.0% (HCC) Inject 10 Units under the skin in the morning. 15 mL 4 5 Active Insulin Lispro (1 Unit Dial) 100 UNIT/ML Subcutaneous Solution Pen-injector (HumaLOG KwikPen)Indicati ons:Type 2 diabetes mellitus with hemoglobin A1c goal of less than 7.0% ([facility]) Inject 10 units with breakfast, 10 units with lunch and 2 units with supper. Max dose of 22 units per day 30 mL 4 5 Active Losartan Potassium 50 MG Oral Tablet (Cozaar)Indicati ons:End stage renal disease on dialysis (HCC),HTN, goal below 140/90 Take 1 Tablet by mouth in the morning. 90 Tablet 3 5 Active Hospital, Clinic, or Other Facility Administered Medication Ordered Dose Route Frequency Start Date End Date Status vitamin b-12 (Cyanocobalamin) inj 1,000 mcgIndications:S/P gastric bypass 1000 mcg IM [id number] 10/15/2022 07/19/2025 Active vitamin b-12 (Cyanocobalamin) inj 1,000 mcgIndications:Morbid obesity with BMI of 40.0-44.9, adult ([facility]),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 [id number] 10/17/2023 12/11/19 25 Active documented as of this encounter (statuses as of 09/22/2024) Active Problems Problem Noted Date Diagnosed Date [...] 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 10/15/2022 [facility] OTHER*[id number] 01/01/2022 S/P gastric bypass 01/01/2022 Dialysis AV [...] Assessment & Plan (05/07/2021 11:01 AM EDT): [facility] since January, Dr. Magallanes. M-W-F from [...] 8:45 AM EDT): Gabapentin 600 mg at [facility] Assessment & Plan (05/07/2021 [...] as of this encounter (statuses as of 09/22/2024) Resolved Problems Problem Noted Date Diagnosed Date [...] renal 05/21/2018 09/23/2018 Breast cancer screening 03/10/2018 07/2017 Overview (03/10/2018): In conclusion, our recommendation for [...] T-tube placement 04/16/2017 05/29/2017 [employer] Other*[id number] 04/13/2013 08/27/2016 Overview (04/13/2013): Study Title: Genomic Markers for Patients with Cardiovascular Disease Project # [id number] Superintendent Plant: Siena Laws MD [phone] Hypertensive heart disease 03/25/2013 1 07/29/2016 Neuropathy, [...] as of this encounter (statuses as of 09/22/2024) Immunizations Name Administration Dates Next Due COVID-19 mRNA, LNP-s, No Pre serve, 2-Dose Series (Moderna) 04/09/2021,09/23/2020,08/19/2020 COVID-19, LNP-s, No Preserve , Espinoza-sucrose, Ages 12+ (Pfizer) 01/08/2022 COVID-19, MRNA-LNP, PF, 30 M CG/0.3 mL, 12 YRS AND ABOVE, IM (PFIZER-Comirnaty) 06/02/2024 HEPATITIS B VACCINE, RECOMB, 20 MCG/ML, ADULT (HEPLISAV-B) 09/05/2021,05/09/2021,04/04/2021,02/18 Hepatitis B, 20+ yrs 09/16/2018,04/14/2018,03/1104/11/2018 Pneumococcal Conjugate Vacci ne, 20-valent ([id number]) 06/22/2024,12/02/2023(Deferred: - pt states she's already received) [...] encounter Miscellaneous Notes * Telephone Encounter - Blanche Paul OSA - 09/22/2024 11:59 AM EST Task Request Spoke with [facility] and cancelled October 14 appointment. documented in this encounter Plan of Treatment Upcoming Encounters Date Type Department Care Team (Late st Contact Info) Description 09/23/2024 10:50 AM EST Telemedicine Pharmacy, [facility] [address] [place] [phone] [facility] [address] [facility] [place] [address] 09/30/2024 9:45 AM EDT Imaging Radiology [facility] [address] [place] [address] 10/05/2024 9:00 AM EDT Office Visit Podiatry [facility] [address] [place] [phone] Calli Avila DPM [address] [place], [place] [address] 11/02/2024 9:30 AM EDT Home Visit [facility], [facility] [address] [place] [address] Heidi Garcia, RN [address] [place] [address] 11/30/2024 10:00 AM EDT Nurse Only Nutrition & Weight Management, [facility] [address] [place] [address] Boni Nurse Gi Nutrition [facility] [address] [place] [address] 12/09/2024 12:15 PM EDT Hospital Encounter OR GL, Operating Room, [facility] - 4th Floor [address] [place] [phone] Himanshu Rivero, [address] [place] [address] 12/09/2024 12:15 PM EDT - 12/09/2024 12:56 PM EDT Surgery OR [facility], Operating Room, [facility] - 4th Floor [address] [place] [phone] Himanshu Rivero, DO [address] [place] [address] COLONOSCOPY FLEXIBLE PROXIMAL DIAGNOSTIC 12/21/2024 10:30 AM EDT Office Visit Gastroenterology, [facility] [address] [place] [address] Emi Queen CRNP [address] [place] [address] 03/10/2025 1:20 PM EDT Office Visit Dermatology, [address] [place] [address] Joanne Parks PA-C [address] [place] [address] [place] [address] Scheduled Procedures Name Priority Associated Diagnoses Date/Ti [...] exists COVID-19 Vaccine (6 - Moderna risk season) 2024 06/02/2024, 01/08/2022, 04/09/2021, Additional history [...] encounter Medical Devices Implanted Type Area Land Development Manager Device Identifier Shelf Expiration Date Model / Serial / Lot Coil Vortex 35 Pltinm [id number] - [id number] Implanted:Qty: 1 on 11/27/2021 by Sterling Cates MD at OR [facility] Right: Upper Arm [employer] : NEURO INTR [id number] 08/15/2024 [id number] Coil Vortex 35 Pltinm [id number] - [id number] Implanted:Qty: 1 on 11/27/2021 by Sterling Cates MD at OR [facility] Right: Upper Arm [employer] : NEURO INTR [id number] 08/15/2024 [id number] Coil Vortex 35 Pltinm [id number] - [id number] Implanted:Qty: 1 on 11/27/2021 by Sterling Cates MD at OR [facility] Right: Upper Arm [employer] : NEURO INTR [id number] 08/15/2024 [id number] Coil Vortex 35 Pltinm [id number] - [id number] Implanted:Qty: 1 on 11/27/2021 by Sterling Cates MD at OR [facility] Right: Upper Arm [employer] : NEURO INTR [id number] 05/16/2024 [id number] / / [id number] Azur 35 Detachable 5mm 11cm - [id number] Implanted:Qty: 1 on 03/19/2022 by Jose Devine MD at OR [facility] Right: Wrist [employer] [id number] 10/18/2025 [id number] / / [id number] Azur 35 Detachable 5mm 11cm - [id number] Implanted:Qty: 1 on 03/19/2022 by Jose Devine MD at OR [facility] Right: Wrist [employer] [id number] 06/19/2026 [id number] / / [id number] Mesh Flat Sheet 10x14 [id number] - [id number] Implanted:Qty: 1 on 12/11/2022 by Eros Dash MD at OR [facility] N/A: Abdomen CR BARD : DAVOL [id number] 06/17/2027 [id number] / / [id number] documented as of this encounter Advance Directives Documents on File Type Date Recorded Patient Museum Technician Expl anation POLST 11/13/2020 POLST PEN[place]YLVA VALERIA [...] Agents on File Name Relationship Healthcare Agent [facility] p Communication Zhen Finley Spouse Health Care Agent Care Teams Earth Moving Machine Operator Relationship Specialty Start Date End Date Luis Fernando Rojas MD [address] [facility] [place] [address] PCP - General Family Medicine 09/23/16 documented as of this encounter
--- OUTSIDE RECORDS SUMMARY | 2024-10-05 05:24 | External Medical Summary | Summary of Care ---
Author Name Unknown Organization [facility] Address [address] [place] [address] Phone [phone] Care Team Providers Care Health Inspector Name Role Phone Luis Fernando Rojas MD Primary Care Provider [phone] Reason for Visit * Reason Comments Dosage Adjustment In Person (Anticoag Cl inic) Diabetes Management Encounter Details Date Type Department Care Team (Late st Contact Info) Description 09/23/2024 10:50 AM EST Telemedicine Pharmacy, [facility] [address] [place] [phone] [place] [facility] [address] [place] [address] Type 2 diabetes mellitus with hemoglobin A1c goal of less than 7.0% ([facility])* Allergies Active Allergy Reactions Criticality Noted Date Comments Salvador Inhibitors Other (Please comment),Cough High HyperKalemia documented as of this encounter (statuses as of 09/24/2024) Medications Melatonin 10 MG Tablet Take 12 [...] [facility]) 7 Each 3 1 Active CPAP every [...] goal of less than 7.0% ([facility]) Use 4 times daily with insulin [...] 4 08/21/2024 8:06 AM EST 4 Active [employer] In Vitro Strip (Glucose Blood) To test blood sugar 4 times daily. 400 Strip 1 04/22/2024 6:47 AM EDT 4 Active [employer] Delica Lancets 33G To test blood sugar 4 times daily. 400 Each 1 04/22/2024 6:47 AM EDT 4 Active [employer] w/Device Kit Use as directed. 1 Kit [...] goal of less than 7.0% ([facility]) Inject 10 Units under the skin in the morning. 15 mL 4 5 Active Insulin Lispro (1 Unit Dial) 100 UNIT/ML Subcutaneous Solution Pen-injector (HumaLOG KwikPen)Indicati ons:Type 2 diabetes mellitus with hemoglobin A1c goal of less than 7.0% ([facility]) Inject 10 units with breakfast, 10 units with lunch and 2 units with supper. Max dose of 22 units per day 30 mL 4 5 Active Losartan Potassium 50 MG Oral Tablet (Cozaar)Indicati ons:End stage renal disease on dialysis ([facility]),HTN, goal below 140/90 Take 1 Tablet by mouth in the morning. 90 Tablet 3 5 Active Hospital, Clinic, or Other Facility Administered Medication Ordered Dose Route Frequency Start Date End Date Status vitamin b-12 (Cyanocobalamin) inj 1,000 mcgIndications:S/P gastric bypass 1000 mcg IM [id number] 10/15/2022 07/19/2025 Active vitamin b-12 (Cyanocobalamin) inj 1,000 mcgIndications:Morbid obesity with BMI of 40.0-44.9, adult ([facility]),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 [id number] 10/17/2023 12/11/19 25 Active documented as of this encounter (statuses as of 09/24/2024) Active Problems Problem Noted Date Diagnosed Date [...] 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 10/15/2022 [facility] RESEARCH OTHER*[id number] 01/01/2022 S/P gastric bypass 01/01/2022 Dialysis AV [...] Assessment & Plan (05/07/2021 11:01 AM EDT): [facility]. Estela from [...] 8:45 AM EDT): Gabapentin 600 mg at [facility] Assessment & Plan (05/07/2021 11:11 [...] as of this encounter (statuses as of 09/24/2024) Resolved Problems Problem Noted Date Diagnosed Date [...] Insulin long-term use 11/19/20182018 Overview (05/20/2019): Duplicate FDC (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 insulin 11/19/2018 10/08/2022 Morbid [...] of 40.0 to 44.9 in adult 05/21/2018 05/15/201 9 Hyperparathyroidism, secondary renal 05/21/2018 09/23/2018 Breast [...] T-tube placement 04/16/2017 05/29/2017 [employer] Other*[id number] 04/13/2013 08/27/2016 Overview (04/13/2013): Study Title: Genomic Markers for Patients with Cardiovascular Disease Project # [id number] Jack Frame Tender: Siena Laws MD [phone] Hypertensive heart disease 03/25/2013 1 07/29/2016 Neuropathy, [...] as of this encounter (statuses as of 09/24/2024) Immunizations Name Administration Dates Next Due COVID-19 mRNA, LNP-s, No Pre serve, 2-Dose Series (Moderna) 04/09/2021,09/23/2020,08/19/2020 COVID-19, LNP-s, No Preserve , Espinoza-sucrose, Ages 12+ (Pfizer) 01/08/2022 COVID-19, MRNA-LNP, PF, 30 M CG/0.3 mL, 12 YRS AND ABOVE, IM (PFIZER-Comirnaty) 06/02/2024 HEPATITIS B VACCINE, RECOMB, 20 MCG/ML, ADULT (HEPLISAV-B) 09/05/2021,05/09/2021,04/04/2021,02/18 Hepatitis B, 20+ yrs 09/16/2018,04/14/2018,03/1104/11/2018 Pneumococcal Conjugate Vacci ne, 20-valent ([id number]) 06/22/2024,12/02/2023(Deferred: - pt states she's already received) [...] Rabia Wiley RN * Do you have serious difficulty [...] Description 09/30/2024 9:45 AM EDT Imaging Radiology [address] [place] [phone] 10/05/2024 9:00 AM EDT Office Visit Podiatry [facility] [address] [place] [address] Calli Avila DPM [address] [place] [address] 10/14/2024 11:40 AM EDT [facility] [address] [facility] [place] [phone] [place] [address] [place] [address] 11/02/2024 9:30 AM EDT Home Visit [facility], [facility] [address] [place] [address] Heidi Garcia, RN [address] [place] [address] 11/30/2024 10:00 AM EDT Nurse Only Nutrition & Weight Management, [facility] [address] [place] [address] [facility], Nurse Gi Nutrition [facility] [place] [address] 12/09/2024 12:15 PM EDT Hospital Encounter [facility], Operating Room, [facility] - 4th [facility] [address] [facility] [phone] Himanshu Rivero, DO [address] [place] [address] 12/09/2024 12:15 PM EDT - 12/09/2024 12:56 PM EDT Surgery OR [facility], Operating Room, [facility] - 4th Floor [address] [facility] [place] [address] Himanshu Rivero, [address] [place] [address] COLONOSCOPY FLEXIBLE PROXIMAL DIAGNOSTIC 12/21/2024 10:30 AM EDT Office Visit Gastroenterology, [facility] [address] [place] [address] Emi Queen CRNP [address] [place] [address] 03/10/2025 1:20 PM EDT Office Visit DermatologySid[place] [address] [place] [address] Joanne Parks PA-C [address] [place] [address] [place] [address] Scheduled Procedures Name Priority Associated Diagnoses Date/Ti [...] this encounter Medical Devices Implanted Type Area Claim Technician Device Identifier Shelf Expiration Date Model / Serial / Lot Coil Vortex 35 Pltinm [id number] - [id number] Implanted:Qty: 1 on 11/27/2021 by Sterling Cates [place] [facility] [place]: Upper Arm [employer] : NEURO INTR [id number] 08/15/2024 [id number] / / [id number] Coil Vortex 35 Pltinm [id number] - [id number] Implanted:Qty: 1 on 11/27/2021 by Sterling Cates MD [place] [facility] [place] [place]: Upper Arm [employer] : NEURO INTR [id number] 08/15/2024 [id number] / / [id number] Coil Vortex 35 Pltinm [id number] - [id number] Implanted:Qty: 1 on 11/27/2021 by Sterling Cates MD [place] [facility] [place]: Upper Arm [employer] : NEURO INTR [id number] 08/15/2024 [id number] / / [id number] Coil Vortex 35 Pltinm [id number] - [id number] Implanted:Qty: 1 on 11/27/2021 by Sterling Cates MD [place] [facility] [place]: Upper Arm [employer] : NEURO INTR [id number] 05/16/2024 [id number] / / [id number] Azur 35 Detachable 5mm 11cm - [id number] Implanted:Qty: 1 on 03/19/2022 by Jose Devine MD [place] [facility] [place] Right: Wrist [employer] [id number] 10/18/2025 [id number] / / [id number] Azur 35 Detachable 5mm 11cm - [id number] Implanted:Qty: 1 on 03/19/2022 by Jose Devine MD [place] [facility] [place] Right: Wrist [employer] [id number] 06/19/2026 [id number] / / [id number] Mesh Flat Sheet 10x14 [id number] - [id number] Implanted:Qty: 1 on 12/11/2022 by Eros Dash MD [place] [facility] [place]/A: Abdomen CR BARD : DAVOL [id number] 06/17/2027 [id number] / / [id number] documented as of this encounter Visit Diagnoses Diagnosis Marginal ulcer- Primary Gastrojejunal ulcer, unspecified as acute or chronic, without mention of hemorrhage, perforation, or obstruction ESRD (end stage renal disease) on dialysis ([facility]) End stage renal disease Hypertensive 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 congestive heart failure and stage 5 chronic kidney disease on chronic dialysis ([facility]) Acute posthemorrhagic anemia Type 2 diabetes mellitus 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 dialysis, with long-term current use of insulin ([facility]) Hypothyroidism (acquired) Unspecified hypothyroidism Malignant melanoma of right upper extremity ([facility]) Aortic atherosclerosis ([facility]) Atherosclerosis of aorta Diabetic polyneuropathy associated with type 2 diabetes mellitus ([facility]) Advanced care planning/counseling discussion- Primary Other specified counseling Hypertensive 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 congestive heart failure and stage 5 chronic kidney disease on chronic dialysis ([facility]) Presence of cardiac pacemaker Cardiac pacemaker in situ SSS (sick sinus syndrome) ([facility]) Sinoatrial node dysfunction MINISTERIO on CPAP Obstructive sleep apnea (adult) (pediatric) Hypothyroidism (acquired) Unspecified hypothyroidism Type 2 diabetes mellitus 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 dialysis, with long-term current use of insulin ([facility]) S/P gastric bypass Bariatric surgery status ESRD (end stage renal disease) on dialysis ([facility]) End stage renal disease Recurrent ventral incisional [...] sleep apnea (adult) (pediatric) Diarrhea, unspecified type Type 2 diabetes mellitus with hemoglobin A1c goal of less than 7.0% (HCC)- Primary History of colonic polyps Personal history of colonic polyps Diarrhea documented in this encounter Advance Directives Documents on File Type Date Recorded Patient Office Employee Expl anation POL 11/13/2020 POLST NASREEN SHAW [...] Agents on File Name Relationship Healthcare Agent [facility] Communication Zhen Finley Spouse Health Care Agent Care Teams Health Inspector Relationship Specialty Start Date End Date Luis Fernando Rojas MD [address] [place] [address] PCP - General Family Medicine 09/23/16 documented as of this encounter
--- OUTSIDE RECORDS SUMMARY | 2024-10-05 05:25 | External Medical Summary | Summary of Care ---
Author Name Unknown Organization [facility] Address [address] [place] [address] Phone [phone] Care Team Providers Care Hogshead Stock Clerk Name Role Phone Luis Fernando Rojas MD Primary Care Provider [phone] Reason for Referral * Evaluate & Treat - Unlimited Visits (Within 10 days (routine)) - Authorized Specialty Diagnoses / Procedures Referred By Contact Referred To Contact Vascular Surgery / Cardiovascular Surgery Diagnoses Malfunction of arteriovenous dialysis fistula, subsequent encounter Sameer Hassan MD [address] [place] [address] Phone: tel:[phone] fax:[phone] Referral ID Status Reason Start Date Expiration Date Visits Requested Visits Authorized [id number] Authorized Specialty Services Required 09/09/2024 999 999 Question Answer Referral Priority Within 10 days (routine) [facility] this [facility] be [facility] What condition is the patient being seen for? Dialysis access Comments Fistulogram needed. Reason for Visit * Reason Onset Date Comments Referral Requested by Specialist 09/09/2024 Encounter Details Date Type Department Care Team (Late st Contact Info) Description 09/09/2024 Telephone [facility] [address] [place] [phone] Sameer Hassan MD [address] [place] [id number] Referral Requested by Specialist Allergies Active Allergy Reactions Criticality Noted Date Comments Salvador Inhibitors Other (Please comment),Cough High HyperKalemia documented as of this encounter (statuses as of 09/14/2024) Medications Melatonin 10 MG Tablet Take 12 [...] Information Patient not taking.Informant: Patient, Reported on 08/19/2024 Acetaminophen 325 MG Oral Tablet (Tylenol) Take [...] of less than 7.0% ([facility]) Use 4 times daily with insulin 400 [...] 4 08/21/2024 8:06 AM EST 4 Active NamshiTouch Verio In Vitro Strip (Glucose Blood) To test blood sugar 4 times daily. 400 Strip 1 04/22/2024 6:47 AM EDT 4 Active OneTouch Delica Lancets 33G To test blood sugar 4 times daily. 400 Each 1 04/22/2024 6:47 AM EDT 4 Active NamshiTouch Verio w/Device Kit Use as directed. 1 Kit 04/22/2024 6:47 AM EDT 4 Active buPROPion HCl ER (SR) 150 MG Oral Tablet Extended Release 12 Hour (Wellbutrin SR) Take 1 Tablet by mouth every evening. 90 Tablet 06/03/2024 1:04 PM EST 4 Active Albuterol Sulfate 0.63 MG/3ML Inhalation Nebulization Solution (Accuneb) Inhale 1 Vial via nebulizer every 6 hours as needed for Wheezing. Active guaiFENesin ER 600 MG Oral Tablet Extended Release 12 Hour (Humibid LA) Take 1 Tablet by mouth in the morning and 1 Tablet before bedtime. Active Promethazine-Cod eine 6.25-10 MG/5ML Oral Syrup (Phenergan and Codeine) Take 5 mL by mouth 4 times a day as needed for Cough. 120 mL 1 4 Active Additional Information Patient not taking.Reported on 08/19/2024 Benzonatate 100 MG Oral Capsule (Tessalon Perles) Take 1 Capsule by mouth 3 times a day as needed for Cough. Do not cut, crush, or chew. 50 Capsule 1 4 Active Additional Information Patient not taking.Reported on 08/19/2024 Gabapentin 300 MG Oral Capsule (Neurontin) Take 1 Capsule by mouth at bedtime. Follow up with your primary care provider for further management. 90 Capsule 3 5 Active amLODIPine Besylate 5 MG Oral [...] of less than 7.0% (HCC) Inject 10 units with breakfast, 10 units with lunch and 2 units with supper. 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 Magallanes. 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 insulin 11/19/2018 10/08/2022 [...] T-tube placement 04/16/2017 05/29/2017 [employer] Other*[id number] 04/13/2013 08/27/2016 Overview (04/13/2013): Study Title: Genomic Markers for Patients with Cardiovascular Disease Project # [id number] Operations Manager/Coordinator: Siena Laws MD [phone] Hypertensive heart disease 03/25/2013 1 07/29/2016 Neuropathy, [...] as of this encounter (statuses as of 09/14/2024) Immunizations Name Administration Dates Next Due COVID-19 mRNA, LNP-s, No Pre serve, 2-Dose Series (Moderna) 04/09/2021,09/23/2020,08/19/2020 COVID-19, LNP-s, No Preserve , Espinoza-sucrose, Ages 12+ (Pfizer) 01/08/2022 COVID-19, MRNA-LNP, PF, 30 M CG/0.3 mL, 12 YRS AND ABOVE, IM ([facility]) 06/02/2024 HEPATITIS B VACCINE, RECOMB, 20 MCG/ML, ADULT (HEPLISAV-B) 09/05/2021,05/09/2021,04/04/2021,02/18 Hepatitis B, 20+ yrs 09/16/2018,04/14/2018,03/1104/11/2018 Pneumococcal Conjugate Vacci ne, 20-valent ([id number]) 06/22/2024,12/02/2023(Deferred: - pt states she's already received) [...] Rabia Granados RN documented in this encounter Miscellaneous Notes * Telephone Encounter - Matteo Salcido OSA - 09/14/2024 10:17 AM EST Spoke to patient and made her aware of pre-op instructions She voiced understanding * Telephone Encounter - Abundio Bird CRNP - 09/13/2024 12:32 PM EST Letter drafted. Please send. LUCRECIA Coon 09/13/2024 12:33 PM * Telephone Encounter - Matteo Salcido OSA - 09/13/2024 11:10 AM EST Patient returned my call and is scheduled for fistuagram on 09/[address] Cates at [facility] Case booked Please document pre-op instructions to be relayed to the patient * Telephone Encounter - Matteo Salcido OSA - 09/13/2024 9:47 AM EST Called and left message for patient to let her know we can schedule her fistulagram surgery in [place] with Dr. Cates on 09/16. * Telephone Encounter - Matteo Salcido OSA - 09/10/2024 2:[address] Cates, Would you be able to do this patient's fistulagram on 09/16 in [place] since it is closerfor her? * Telephone Encounter - Candi Torres LPN - 09/09/2024 1:58 PM EST Associated Diagnoses Malfunction of arteriovenous dialysis fistula, subsequent encounter [T82.326D] - Primary Last intervention was on 06/01/[address] Torrez Operation: Diagnostic fistulagram with peripheral venous angioplasty Findings: Patent arteriovenous anastomosis. Stenotic cephalic vein(s). Patent innominate subclavianand axillary veins I called [facility] at [phone] and spoke with Hina and she states that the patient KT/V and Access flows are decreasing and they are requesting a fistulagram. Pt gets dialysis on M/W/F Secretaries, Please set patient up for a fistulagram. Candi Torres LPN 09/09/2024 2:08 PM * Telephone Encounter - Mary Dumont RN - 09/09/2024 1:54 PM EST Referral sent. * Telephone Encounter - Mary Dumont RN - 09/09/2024 1:53 PM EST ----- Message from Sameer Hassan MD sent at 09/08/2024 1:54 PM EST ----- Nonurgent fistulogram. Please put the referral. Sameer Hassan MD documented in this encounter Plan of Treatment Upcoming Encounters Date Type Department Care Team (Late st Contact Info) Description 09/16/2024 9:51 AM EST Hospital Encounter OR [facility], Operating Room, [facility] - 4th Floor [address] [place] [phone] Sterling [facility]ates [facility] [address] [facility] [address] 09/16/2024 9:51 AM EST - 09/16/2024 11:10 AM EST Surgery OR [facility], Operating Room, [facility] - 4th Floor [address] [place] [address] Sterling Cates MD [address] [facility] [place] [address] AV FISTULOGRAM STENT & PERIPHERAL ANGIOPLASTY 09/21/2024 10:30 AM EST [facility] [address] [facility] [place] [place] [address] Heidi Garcia RN [address] [facility] [place] [address] 09/23/2024 10:50 AM EST Telemedicine Pharmacy, [address] [place] [phone] Emblem, [facility] [address] [place] [address] 09/30/2024 9:45 AM EDT Imaging Radiology [facility] [facility] [address] [facility] [place] [phone] 09/30/2024 11:00 AM EDT Office Visit Podiatry [facility] [address] [place] [phone] Calli Avila DPM [address] [facility] [place] [address] 10/14/2024 2:50 PM EDT Office Visit Vascular Surgery, [place] [address] [place] [address] Sterling Cates MD [address] [facility], [place] [id number] 11/30/2024 10:00 AM EDT Nurse Only Nutrition & Weight Management, [facility] [address] [facility] [place] [address] Boni Nurse [facility] [place] [address] 12/09/2024 12:57 PM EDT Hospital Encounter OR [facility], Operating Room, [facility] - 4th Floor [address] [place] [address] Himanshu Rivero, DO [address] [place] [place] [address] 12/09/2024 12:57 PM EDT - 12/09/2024 1:38 PM EDT Surgery OR [facility], Operating Room, [facility] - 4th Floor [address] [place] [phone] Himanshu Rivero, DO [address] [place] [place] [address] COLONOSCOPY FLEXIBLE PROXIMAL DIAGNOSTIC 12/21/2024 10:30 AM EDT Office Visit Gastroenterology, [facility] [place] [address] mEi Queen CRNP [address] [facility] [place] [address] 03/10/2025 1:20 PM EDT Office Visit DermatologyMerissaEmblemkrista Krishna [address] [facility] [place] [phone] Joanne Parks PA-C [address] [place] [address] [place] [address] Scheduled Procedures Name Priority Associated Diagnoses Date/Ti me AV FISTULOGRAM STENT & PERIPHERAL ANGIOPLASTY ESRD (end stage renal disease) on dialysis (HCC) 09/16/2024 9:51 AM EST COLONOSCOPY FLEXIBLE PROXIMAL DIAGNOSTIC History of colonic polyps Diarrhea 12/09/2024 12:57 PM EDT Scheduled Referrals Name Type Priority Associated Diagnoses Orde r Schedule VASCULAR SURGERY REFERRAL OP Referral Within 10 days (routine) Malfunction of arteriovenous dialysis fistula, subsequent encounter Ordered: 09/09/2024 Health Maintenance Due Date Last Done Comments [...] this encounter Medical Devices Implanted Type Area Ignition Specialist Device Identifier Shelf Expiration Date Model / Serial / Lot Coil Vortex 35 Pltinm [id number] - [id number] Implanted:Qty: 1 on 11/27/2021 by Sterling Cates MD at OR [facility] Right: Upper Arm [employer] : NEURO INTR [id number] 08/15/2024 [id number] / / [id number] Coil Vortex 35 Pltinm [id number] - [id number] Implanted:Qty: 1 on 11/27/2021 by Sterling Cates MD at OR [facility] Right: Upper Arm [employer] : NEURO INTR [id number] 08/15/2024 [id number] / / [id number] Coil Vortex 35 Pltinm [id number] - [id number] Implanted:Qty: 1 on 11/27/2021 by Sterling Cates MD at OR [facility] Right: Upper Arm [employer] : NEURO INTR [id number] 08/15/2024 [id number] / / [id number] Coil Vortex 35 Pltinm [id number] - [id number] Implanted:Qty: 1 on 11/27/2021 by Sterling Cates MD at OR [facility] Right: Upper Arm [employer] : NEURO INTR [id number] 05/16/2024 [id number] / / [id number] Azur 35 Detachable 5mm 11cm - [id number] Implanted:Qty: 1 on 03/19/2022 by Jose Devine MD at OR [facility] Right: Wrist [employer] [id number] 10/18/2025 [id number] / / [id number] Azur 35 Detachable 5mm 11cm - [id number] Implanted:Qty: 1 on 03/19/2022 by Jose Devine MD at OR [facility] Right: Wrist [employer] [id number] 06/19/2026 [id number] / / [id number] Mesh Flat Sheet 10x14 [id number] - [id number] Implanted:Qty: 1 on 12/11/2022 by Eros Dash MD at OR [facility] N/A: Abdomen CR BARD : DAVOL [id number] 06/17/2027 [id number] / / [id number] documented as of this encounter Visit Diagnoses Diagnosis Marginal ulcer- Primary Gastrojejunal ulcer, unspecified as acute or chronic, without mention of hemorrhage, perforation, or obstruction ESRD (end stage renal disease) on dialysis ([facility]) End stage renal disease Hypertensive 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 congestive heart failure and stage 5 chronic kidney disease on chronic dialysis ([facility]) Acute posthemorrhagic anemia Type 2 diabetes mellitus 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 dialysis, with long-term current use of insulin ([facility]) Hypothyroidism (acquired) Unspecified hypothyroidism Malignant melanoma of right upper extremity ([facility]) Aortic atherosclerosis ([facility]) Atherosclerosis of aorta Diabetic polyneuropathy associated with type 2 diabetes mellitus ([facility]) Advanced care planning/counseling discussion- Primary Other specified counseling Hypertensive 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 congestive heart failure and stage 5 chronic kidney disease on chronic dialysis ([facility]) Presence of cardiac pacemaker Cardiac pacemaker in situ SSS (sick sinus syndrome) ([facility]) Sinoatrial node dysfunction MINISTERIO on CPAP Obstructive sleep apnea (adult) (pediatric) Hypothyroidism (acquired) Unspecified hypothyroidism Type 2 diabetes mellitus 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 dialysis, with long-term current use of insulin ([facility]) S/P gastric bypass Bariatric surgery status ESRD (end stage renal disease) on dialysis ([facility]) End stage renal disease Recurrent ventral incisional hernia Incisional hernia without mention of obstruction or gangrene NO SHOW/FAILED TO KEEP APPOINTMENT- Primary Chronic diastolic heart failure (HCC)- Primary Chronic diastolic heart failure HTN, goal below 140/90 Unspecified essential hypertension Type 2 diabetes mellitus with hemoglobin A1c goal of less than 7.0% ([facility]) Hypothyroidism (acquired) Unspecified hypothyroidism Dyslipidemia, goal LDL [...] sleep apnea (adult) (pediatric) Diarrhea, unspecified type Malfunction of arteriovenous dialysis fistula, subsequent encounter- Primary Malfunction of arteriovenous dialysis fistula, sequela- Primary ESRD (end stage renal disease) on dialysis (HCC) End stage renal disease History of colonic polyps Personal history of colonic polyps Diarrhea documented in this encounter Advance Directives Documents on File Type Date Recorded Patient Forest Ranger Technician Expl anation POLST 11/13/2020 POLST FLAKITOAlo SHAW ORDERS FOR LIFE-SUSTAINING TREATMENT * Full [...] Finley Spouse Health Care Agent Care Teams Hogshead Stock Clerk Relationship Specialty Start Date End Date Luis Fernando Rojas MD [address] [address] PCP - General Family Medicine 09/23/16 documented as of this encounter
--- OUTSIDE RECORDS SUMMARY | 2024-10-05 05:25 | External Medical Summary | Summary of Care ---
Author Name Unknown Organization [facility] Address [address] [place] [address] Phone [phone] Care Team Providers Care Geochemical Laboratory Technician Name Role Phone Luis Fernanod Rojas MD Primary Care Provider [phone] Reason for Visit * Reason Onset Date Comments Medication Question 09/20/2024 Encounter Details Date Type Department Care Team (Late st Contact Info) Description 09/20/2024 Telephone NephrologyDella [address] [facility] [place] [address] Sameer Hassan MD [address] [facility] [place] [address] Medication Question Allergies Active Allergy Reactions Criticality Noted Date Comments Salvador Inhibitors Other (Please comment),Cough High HyperKalemia documented as of this encounter (statuses as of 09/20/2024) Medications Melatonin 10 MG Tablet Take 12 [...] hemoglobin A1c goal of less than 7.0% ([facility]) Use 4 times daily with [...] DAY OR OTHER MEDICATIONS 90 Tablet 3 5 3:02 PM EST 09/10/19 24 Active Diclofenac Sodium 1 % External [...] mouth in the morning. 100 Capsule 3 5 8:57 AM EST 08/29/20 24 Active Carvedilol 12.5 MG Oral Tablet (Coreg)Indicati ons:HTN, goal below 140/90 Take 1 Tablet by mouth in the morning and 1 Tablet before bedtime. 180 Tablet 4 5 8:06 AM EST 03/20/20 24 Active OneTouch Verio In Vitro Strip (Glucose Blood) To test blood sugar 4 times daily. 400 Strip 1 4 6:47 AM EDT 04/20/20 Active OneTouch Delica Lancets 33G To test blood sugar 4 times daily. 400 Each 1 4 6:47 AM EDT 04/20/20 Active OneTouch Verio w/Device Kit Use as directed. 1 Kit 4 6:47 AM EDT 04/20/20 Active Albuterol Sulfate 0.63 MG/3ML Inhalation Nebulization Solution (Accuneb) Inhale 1 Vial via nebulizer every 6 hours as needed for Wheezing. Active Benzonatate 100 MG Oral Capsule (Tessalmarybel Perlwendi) Take 1 Capsule by mouth 3 times a day as needed for Cough. Do not cut, crush, or chew. 50 Capsule 1 07/15/20 24 Active Additional Information Patient not taking.Reported on 09/16/2024 Gabapentin 300 MG Oral Capsule (Neurontin) Take 1 Capsule by mouth at bedtime. Follow up with your primary care provider for further management. 90 Capsule 3 5 2:09 PM EST 08/06/19 25 Active amLODIPine Besylate 5 MG Oral Tablet (Norvasc) TAKE ONE TABLET BY MOUTH EVERY DAY IN THE MORNING 90 Tablet 1 5 8:06 AM EST 08/05/19 25 Active Atorvastatin Calcium 40 MG Oral Tablet (Lipitor)Indica tions:Dyslipide jennifer, goal LDL below 100 Take 1 Tablet by mouth in the morning. 90 Tablet 1 5 3:02 PM EST 08/05/19 25 Active Colestipol HCl 1 GM Oral Tablet (Colestid) take 2 tablets by mouth at noon daily if needed for diarrhea 180 Tablet 3 5 3:46 PM EST 08/10/19 25 Active traMADol HCl 50 MG Oral Tablet (Ultram) Take 1 Tablet by mouth every 4 hours as needed for Pain, Severe. Active Insulin Glargine Solostar 100 UNIT/ML Subcutaneous Solution Pen-injector (Basaglar KwikPen)Indicat ions:Type 2 diabetes mellitus with hemoglobin A1c goal of less than 7.0% ([facility]) Inject 10 Units under the skin in the morning. 15 mL 4 08/26/19 25 Active Insulin Lispro (1 Unit Dial) 100 UNIT/ML Subcutaneous Solution Pen-injector (HumaLOG KwikPen)Indicat ions:Type 2 diabetes mellitus with hemoglobin A1c goal of less than 7.0% ([facility]) Inject 10 units with breakfast, 10 units with lunch and 2 units with supper. Max dose of 22 units per day 30 mL 4 08/26/19 25 Active Losartan Potassium 50 MG Oral Tablet (Cozaar)Indicat ions:End stage renal disease on dialysis (HCC),HTN, goal below 140/90 Take 1 Tablet by mouth in the morning. 90 Tablet 3 09/21/19 25 Active hydrALAZINE HCl 100 MG Oral TabletIndicatio ns:HTN, goal below 140/90 Take 1 Tablet by mouth in the morning and 1 Tablet at noon and 1 Tablet before bedtime. 270 Tablet 2 09/14/19 25 2024 Discontinued(D ischarged) Losartan Potassium 50 MG Oral Tablet (Cozaar)Indicat ions:End stage renal disease on dialysis (HCC),HTN, goal below 140/90 Take 1 Tablet by mouth in the morning. 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 [id number] 10/17/2023 12/11/19 25 Active documented as of this encounter (statuses as of 09/20/2024) Active Problems Problem Noted Date Diagnosed Date [...] 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 10/15/2022 MORFIN RESEARCH OTHER*[id number] 01/01/2022 S/P gastric bypass 01/01/2022 [address] [...] 8:45 AM EDT): [facility] Assessment & Plan (05/07/2021 11:11 AM [...] as of this encounter (statuses as of 09/20/2024) Resolved Problems Problem Noted Date Diagnosed Date [...] Insulin long-term use 11/19/20182018 Overview (05/20/2019): Duplicate oysterman (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 insulin 11/19/2018 [...] T-tube placement 04/16/2017 05/29/2017 [employer] Other*[id number] 04/13/2013 08/27/2016 Overview (04/13/2013): Study Title: Genomic Markers for Patients with Cardiovascular Disease Project # [id number] Property Management Accountant: Siena Laws MD [phone] Hypertensive heart disease 03/25/2013 1 07/29/2016 Neuropathy, [...] as of this encounter (statuses as of 09/20/2024) Immunizations Name Administration Dates Next Due COVID-19 mRNA, LNP-s, No Pre serve, 2-Dose Series (Moderna) 04/09/2021,09/23/2020,08/19/2020 COVID-19, LNP-s, No Preserve , Espinoza-sucrose, Ages 12+ (Pfizer) 01/08/2022 COVID-19, MRNA-LNP, PF, 30 M CG/0.3 mL, 12 YRS AND ABOVE, IM (PFIZER-Comirnaty) 06/02/2024 HEPATITIS B VACCINE, RECOMB, 20 MCG/ML, ADULT (HEPLISAV-B) 09/05/2021,05/09/2021,04/04/2021,02/18 Hepatitis B, 20+ yrs 09/16/2018,04/14/2018,03/1104/11/2018 Pneumococcal Conjugate Vacci ne, 20-valent ([id number]) 06/22/2024,12/02/2023(Deferred: - pt states she's already received) [...] Date Author No 12/11/2022 6:51 PM Rabia Grandaos RN documented in this encounter Miscellaneous Notes * Telephone Encounter - Sameer Hassan MD - 09/20/2024 12:08 PM EST Patient said Hydralazine was somehow stopped. ?? Hard to tell when and and by who. In any case will stop that and instead use Losartan 50 daily. Stop Hydralazine Continue Norvasc and coreg. Rx sent to [facility] mail order documented in this encounter Plan of Treatment Upcoming Encounters Date Type Department Care Team (Late st Contact Info) Description 09/21/2024 10:30 AM EST Home Visit [facility] [place] [place] [address] [place] [address] Heidi Garcia RN [address] [place] [address] 09/23/2024 10:50 AM EST Telemedicine Pharmacy, [facility] [address] [facility] [place] [phone] [place] [facility] [address] [facility] [address] 09/30/2024 9:45 AM EDT Imaging Radiology [facility] 1st [facility] [address] [place] [phone] 09/30/2024 11:00 AM EDT Office Visit Podiatry [facility] [address] [place] [phone] Calli Avila DPM [address] [place] [address] 10/14/2024 2:50 PM EDT Office Visit [facility] [place] [facility] [place] [address] Sterling Cates MD [address] [place] [address] 11/30/2024 10:00 AM EDT Nurse Only Nutrition & Weight Management, [facility] [address] [facility] [place] [address] Nurse Brianna Plata Nutrition [facility] [address] [facility] [place] [address] 12/09/2024 12:15 PM EDT Hospital Encounter [facility], Operating Room, [facility] - 4th Floor [address] [facility] [place] [phone] Himanshu Rivero, DO [address] [place] [address] 12/09/2024 12:15 PM EDT - 12/09/2024 12:56 PM EDT Surgery OR [facility], Operating Room, [facility] - 4th Floor [address] [place] [phone] Himanshu Rivero, DO [address] [place] [address] COLONOSCOPY FLEXIBLE PROXIMAL DIAGNOSTIC 12/21/2024 10:30 AM EDT Office Visit Gastroenterology, [facility] [address] [place] [address] Emi Queen CRNP [address] [place] [address] 03/10/2025 1:20 PM EDT Office [facility], [facility] [address] [facility] [place] [phone] Joanne Parks PA-C [address] [place] [address] [place] [address] Scheduled Procedures Name Priority Associated Diagnoses Date/Ti [...] this encounter Medical Devices Implanted Type Area Industrial Illuminating Engineer Device Identifier Shelf Expiration Date Model / Serial / Lot Coil Vortex 35 Pltinm [id number] - [id number] Implanted:Qty: 1 on 11/27/2021 by Sterling Cates MD at [place] [facility] Right: Upper Arm [employer] : NEURO INTR [id number] 08/15/2024 [id number] 1 / / [id number] Coil Vortex 35 Pltinm [id number] - [id number] Implanted:Qty: 1 on 11/27/2021 by Sterling Cates MD at [place] [facility] [place] Right: Upper Arm [employer] : NEURO INTR [id number] 08/15/2024 [id number] / / [id number] Coil Vortex 35 Pltinm [id number] - [id number] Implanted:Qty: 1 on 11/27/2021 by Sterling Cates MD at [place] [facility] [place] Right: Upper Arm [employer] : NEURO INTR [id number] 08/15/2024 [id number] 1 / / [id number] Coil Vortex 35 Pltinm [id number] - [id number] Implanted:Qty: 1 on 11/27/2021 by Sterling Cates MD at [place] [facility] [place] Right: Upper Arm [employer] : NEURO INTR [id number] 05/16/2024 [id number] / / [id number] Azur 35 Detachable 5mm 11cm - [id number] Implanted:Qty: 1 on 03/19/2022 by Jose Devine MD at [place] [facility] [place] Right: Wrist [employer] [id number] 10/18/2025 [id number] / / [id number] Azur 35 Detachable 5mm 11cm - [id number] Implanted:Qty: 1 on 03/19/2022 by Jose Devine MD at [place] [facility] [place] Right: Wrist [employer] [id number] 06/19/2026 [id number] / / [id number] Mesh Flat Sheet 10x14 [id number] - [id number] Implanted:Qty: 1 on 12/11/2022 by Eros Dash MD at [place] [facility] [place] N/A: Abdomen CR BARD : DAVOL [id number] 06/17/2027 [id number] / / [id number] documented as of this encounter Visit Diagnoses [...] polyneuropathy associated with type 2 diabetes mellitus ([facility]) Advanced care planning/counseling discussion- Primary Other specified counseling Hypertensive 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 congestive heart failure and stage 5 chronic kidney disease on chronic dialysis (HCC) Presence of cardiac pacemaker Cardiac pacemaker in situ SSS (sick sinus syndrome) ([facility]) Sinoatrial node dysfunction MINISTERIO on CPAP Obstructive sleep apnea (adult) (pediatric) Hypothyroidism (acquired) Unspecified hypothyroidism Type 2 diabetes mellitus 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 dialysis, with long-term current use of insulin ([facility]) S/P gastric bypass Bariatric surgery status ESRD (end stage renal disease) on dialysis ([facility]) End stage renal disease Recurrent [...] edema, with long-term current use of insulin ([facility]) Hyperparathyroidism, secondary renal (HCC) Secondary hyperparathyroidism (of renal origin) End stage renal disease on dialysis (HCC) End stage renal disease MINISTERIO on CPAP Obstructive sleep apnea (adult) (pediatric) Diarrhea, unspecified type End stage renal disease on dialysis (HCC)- Primary End stage renal disease HTN, goal below 140/90 Unspecified essential hypertension History of colonic polyps Personal history of colonic polyps Diarrhea documented in this encounter Advance Directives Documents on File Type Date Recorded Patient Area Safety Manager Expl anation POLST 11/13/2020 POLST [facility] [...] Agents on File Name Relationship Healthcare Agent [facility] p Communication Zhen Finley Spouse Health Care Agent Care Teams Geochemical Laboratory Technician Relationship Specialty Start Date End Date Luis Fernando Rojas MD [address] [place] [address] PCP - General Family Medicine 09/23/16 documented as of this encounter
--- OUTSIDE RECORDS SUMMARY | 2024-10-05 05:25 | External Medical Summary | Summary of Care ---
Author Name Unknown Organization [facility] Address [address] [place] [address] Phone [phone] Care Team Providers Care Medicine Worker Name Role Phone Luis Fernando Rojas MD Primary Care Provider [phone] Reason for Visit * Reason Onset Date Comments Pre-Op Testing 09/15/2024 FYI 09/15/2024 Encounter Details Date Type Department Care Team (Late st Contact Info) Description 09/15/2024 Telephone Pre Surgery Center, [facility] [address] [place] [address] Sterling Cates MD [address] [place] [address] Pre-Op Testing; FYI Allergies Active Allergy Reactions Criticality Noted Date Comments Salvador Inhibitors Other (Please comment),Cough High HyperKalemia documented as of this encounter (statuses as of 09/15/2024) Medications Melatonin 10 MG Tablet Take 12 [...] 4 08/21/2024 8:06 AM EST 4 Active PogoplugToDermApproved In Vitro Strip (Glucose Blood) To test blood sugar 4 times daily. 400 Strip 1 04/22/2024 6:47 AM EDT 4 Active PogoplugToMetrilo Delica Lancets 33G To test blood sugar 4 times daily. 400 Each 1 04/22/2024 6:47 AM EDT 4 Active [employer] Verio w/Device Kit Use as directed. 1 [...] hours as needed for Pain, Severe. Active Amoxicillin 875 MG Oral Tablet Take 1 Tablet by mouth in the morning and 1 Tablet before bedtime. 5 09/15/19 25 Active Insulin Glargine Solostar 100 UNIT/ML [...] per day 30 mL 4 5 Active hydrALAZINE HCl 100 MG Oral TabletIndication s:HTN, goal below 140/90 Take 1 Tablet by mouth in the morning and 1 Tablet at noon and 1 Tablet before bedtime. 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 Magalalnes. Renae-W-Briana from 07-25. Has dialysis catheter in [...] 8:45 AM EDT): [facility] Assessment & Plan (05/07/2021 11:11 AM [...] as of this encounter (statuses as of 09/15/2024) Resolved Problems Problem Noted Date Diagnosed Date [...] Insulin long-term use 11/19/20182018 Overview (05/20/2019): Duplicate half-way (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 insulin 11/19/2018 [...] T-tube placement 04/16/2017 05/29/2017 [employer] Other*[id number] 04/13/2013 08/27/2016 Overview (04/13/2013): Study Title: Genomic Markers for Patients with Cardiovascular Disease Project # [id number] Head Of Cytogenetics: Siena Laws MD [phone] Hypertensive heart disease 03/25/2013 1 07/29/2016 Neuropathy, [...] as of this encounter (statuses as of 09/15/2024) Immunizations Name Administration Dates Next Due COVID-19 mRNA, LNP-s, No Pre serve, 2-Dose Series (Moderna) 04/09/2021,09/23/2020,08/19/2020 COVID-19, LNP-s, No Preserve , Espinoza-sucrose, Ages 12+ (Pfizer) 01/08/2022 COVID-19, MRNA-LNP, PF, 30 M CG/0.3 mL, 12 YRS AND ABOVE, IM (PFIZER-Comirnaty) 06/02/2024 HEPATITIS B VACCINE, RECOMB, 20 MCG/ML, ADULT (HEPLISAV-B) 09/05/2021,05/09/2021,04/04/2021,02/18 Hepatitis B, 20+ yrs 09/16/2018,04/14/2018,03/1104/11/2018 Pneumococcal Conjugate Vacci ne, 20-valent ([id number]) 06/22/2024,12/02/2023(Deferred: - pt states she's already received) [...] encounter Miscellaneous Notes * Telephone Encounter - Chica Jiang RN - 09/15/2024 9:35 AM EST Spoke with Candi to complete anesthesia ROS prior to surgery tomorrow. Just wanted to be sure you were aware of 2 items she reported. First, she has passed out twice in the past 2 weeks, once at home and once in a restaurant. She states she did report that to nephrology and said they felt it may be related to her iron levels and were going to order testing. I have scanned dialysis labs from August. The second is that she had 2 teeth pulled yesterday and is currently on an antibiotic. Reviewed with Dr. Gold, [facility] anesthesia and he had no further orders at this time. Again, just an FYI. documented in this encounter Plan of Treatment Upcoming Encounters Date Type Department Care Team (Late st Contact Info) Description 09/16/2024 9:51 AM EST Hospital Encounter OR [facility], Operating Room, [facility] - 4th Floor [address] [place] [address] Sterling Cates MD [address] [place] [address] 09/16/2024 9:51 AM EST - 09/16/2024 11:10 AM EST Surgery OR [facility], Operating Room, [facility] - 4th Floor [address] [place] [phone] Sterling Cates MD [address] [place] [address] AV FISTULOGRAM STENT & PERIPHERAL ANGIOPLASTY 09/21/2024 10:30 AM EST Home Visit [facility] [address] [facility] [place] [address] Heidi Garcia, RN [address] [place] [address] 09/23/2024 10:50 AM EST Telemedicine Pharmacy, [facility] [place] [phone] [place] [phone] [facility] [place] [address] 09/30/2024 9:45 AM EDT Imaging Radiology [facility] 1st [facility] [address] [place] [phone] 09/30/2024 11:00 AM EDT Office Visit Podiatry [facility] [address] [place] [phone] Calli Avila, DAIANA [address] [place] [address] 10/14/2024 2:50 PM EDT Office Visit Vascular Surgery, [place] [address] [facility] [place] [address] Sterling Cates MD [address] [place] [address] 11/30/2024 10:00 AM EDT Nurse Only Nutrition & Weight Management, [facility] [address] [place] [address] [facility], Nurse Gi Nutrition [facility] [address] [place], [place] [address] 12/09/2024 12:57 PM EDT Hospital Encounter OR [facility], Operating Room, [facility] - 4th Floor [address] [place] [phone] Himanshu Rivero, DO [address] [place] [address] 12/09/2024 12:57 PM EDT - 12/09/2024 1:38 PM EDT Surgery OR [facility], Operating Room, [facility] - 4th Floor [address] [place] [phone] Himanshu Rivero, DO [address] [place] [address] COLONOSCOPY FLEXIBLE PROXIMAL DIAGNOSTIC 12/21/2024 10:30 AM EDT Office Visit Gastroenterology, [facility] [address] [place] [address] Emi Queen CRNP [address] [place] [address] 03/10/2025 1:20 PM EDT Office Visit Dermatology, [address] [facility] [place] [phone] Joanne Parks PA-C [address] [place] [address] [place] [phone] Scheduled Procedures Name Priority Associated Diagnoses Date/Ti me AV FISTULOGRAM STENT & PERIPHERAL ANGIOPLASTY ESRD (end stage renal disease) on dialysis ([facility]) 09/16/2024 9:51 AM EST COLONOSCOPY FLEXIBLE PROXIMAL DIAGNOSTIC History of colonic polyps Diarrhea 12/09/2024 12:57 PM EDT Health Maintenance Due Date Last [...] this encounter Medical Devices Implanted Type Area Oncology Account Specialist Device Identifier Shelf Expiration Date Model / Serial / Lot Coil Vortex 35 Pltinm [id number] - [id number] Implanted:Qty: 1 on 11/27/2021 by Sterling Cates MD at [place] [facility] [place] Right: Upper Arm [employer] : NEURO INTR [id number] 08/15/2024 [id number] Coil Vortex 35 Pltinm [id number] - [id number] Implanted:Qty: 1 on 11/27/2021 by Sterling Cates MD at OR [facility] [place] Right: Upper Arm [employer] : NEURO INTR [id number] 08/15/2024 [id number] Coil Vortex 35 Pltinm [id number] - [id number] Implanted:Qty: 1 on 11/27/2021 by Sterling Cates MD at OR [facility] [place] Right: Upper Arm [employer] : NEURO INTR [id number] 08/15/2024 [id number] / / [id number] Coil Vortex 35 Pltinm [id number] - [id number] Implanted:Qty: 1 on 11/27/2021 by Sterling Cates MD at OR [facility] [place] Right: Upper Arm [employer] : NEURO INTR [id number] 05/16/2024 [id number] 1 / / [id number] Azur 35 Detachable 5mm 11cm - [id number] Implanted:Qty: 1 on 03/19/2022 by Jose Devine MD at OR [facility] [place] Right: Wrist [employer] [id number] 10/18/2025 [id number] / / [id number] Azur 35 Detachable 5mm 11cm - [id number] Implanted:Qty: 1 on 03/19/2022 by Jose Devine MD at OR [facility] [place] Right: Wrist [employer] [id number] 06/19/2026 [id number] / / [id number] Mesh Flat Sheet 10x14 [id number] - [id number] Implanted:Qty: 1 on 12/11/2022 by Eros Dash MD at OR [facility] [place] N/A: Abdomen CR BARD : DAVOL [id number] 06/17/2027 [id number] / / [id number] documented as of this encounter Advance Directives Documents on File Type Date Recorded Patient Transmission Systems Operator Expl anation POLST 11/13/2020 POLST [place] [...] Finley Spouse Health Care Agent Care Teams Medicine Worker Relationship Specialty Start Date End Date Luis Fernando Rojas MD [address] [facility] [place] [address] PCP - General Family Medicine 09/23/16 documented as of this encounter
--- OUTSIDE RECORDS SUMMARY | 2024-10-05 05:25 | External Medical Summary | Summary of Care ---
Author Name Unknown Organization [facility] Address [address] [place] [address] Phone [phone] Care Team Providers Care Health Administration Teacher Name Role Phone Luis Fernando Rojas MD Primary Care Provider [phone] Reason for Referral * Evaluate & Treat - Unlimited Visits (Within 10 days (routine)) - Authorized Specialty Diagnoses / Procedures Referred By Contact Referred To Contact Vascular Surgery / Cardiovascular Surgery Diagnoses Malfunction of arteriovenous dialysis fistula, subsequent encounter Sameer Hassan MD [address] [place] [address] Phone: tel:[phone] fax:[phone] Referral ID Status Reason Start Date Expiration Date Visits Requested Visits Authorized [id number] Authorized Specialty Services Required 09/09/2024 999 999 [...] 09/09/2024 Telephone [facility] [address] [place] [address] [id number] Sameer Hassan MD [address] [place] [id number] Referral Requested by Specialist Allergies Active Allergy Reactions Criticality Noted Date Comments Salvador Inhibitors Other (Please comment),Cough High HyperKalemia documented as of this encounter (statuses as of 09/13/2024) Medications Melatonin 10 MG Tablet Take 12 [...] 4 08/21/2024 8:06 AM EST 4 Active Ingen.ioTouch Verio In Vitro Strip (Glucose Blood) To test blood sugar 4 times daily. 400 Strip 1 04/22/2024 6:47 AM EDT 4 Active OneTouch Delica Lancets 33G To test blood sugar 4 times daily. 400 Each 1 04/22/2024 6:47 AM EDT 4 Active Ingen.ioTouch Verio w/Device Kit Use as directed. 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 10/15/2022 [facility] OTHER*[id number] 01/01/2022 S/P gastric bypass 01/01/[address] [...] 8:45 AM EDT): Gabapentin 600 mg at [facility] Assessment & Plan (05/07/2021 11:11 [...] as of this encounter (statuses as of 09/13/2024) Resolved Problems Problem Noted Date Diagnosed Date [...] T-tube placement 04/16/2017 05/29/2017 [employer] Other*[id number] 04/13/2013 08/27/2016 Overview (04/13/2013): Study Title: Genomic Markers for Patients with Cardiovascular Disease Project # [id number] Cdl Driver: Siena Laws MD [phone] Hypertensive heart disease 03/25/2013 1 07/29/2016 Neuropathy, [...] as of this encounter (statuses as of 09/13/2024) Immunizations Name Administration Dates Next Due COVID-19 mRNA, LNP-s, No Pre serve, 2-Dose Series (Moderna) 04/09/2021,09/23/2020,08/19/2020 COVID-19, LNP-s, No Preserve , Espinoza-sucrose, Ages 12+ (Pfizer) 01/08/2022 COVID-19, MRNA-LNP, PF, 30 M CG/0.3 mL, 12 YRS AND ABOVE, IM (Sungevity-ComirnatAssertID) 06/02/2024 HEPATITIS B VACCINE, RECOMB, 20 MCG/ML, ADULT (HEPLISAV-B) 09/05/2021,05/09/2021,04/04/2021,02/18 Hepatitis B, 20+ yrs 09/16/2018,04/14/2018,03/1104/11/2018 Pneumococcal Conjugate Vacci ne, 20-valent ([id number]) 06/22/2024,12/02/2023(Deferred: - pt states she's already received) [...] fistuagram on 09/[address] Cates at [facility] Case booked Please document pre-op instructions to be relayed to the patient * Telephone Encounter - Matteo Salcido OSA - 09/13/2024 9:47 AM EST Called and left message for patient to let her know we can schedule her fistulagram surgery in [place] with Dr. Cates on 09/16. * Telephone Encounter - Matteo Salcido OSA - 09/10/2024 2:[address] Cates, Would you be able to do this patient's fistulagram on 09/16 in [place] since it is closerfor her? * Telephone Encounter - Cnadi Torres LPN - 09/09/2024 1:58 PM EST Associated Diagnoses Malfunction of arteriovenous dialysis fistula, subsequent encounter [T82.590D] - Primary Last intervention was on 06/01/[address] Torrez Operation: Diagnostic fistulagram with peripheral venous angioplasty Findings: Patent arteriovenous anastomosis. Stenotic cephalic vein(s). Patent innominate subclavianand axillary veins I called Kimmy at [phone] and spoke with Hina and she states that the patient KT/V and Access flows are decreasing and they are requesting a fistulagram. Pt gets dialysis on M/W/F Secretaries, Please set patient up for a fistulagram. Canid Torres LPN 09/09/2024 2:08 PM * Telephone [...] 09/16/2024 9:51 AM EST Hospital Encounter OR [facility], Operating Room, [facility] - 4th Floor [address] [place] [phone] Sterling Cates MD [address], [place] [id number] 09/16/2024 9:51 AM EST - 09/16/2024 11:10 AM EST Surgery OR [facility], Operating Room, [facility] - 4th Floor [address] [place] [phone] Sterling Cates MD [address] [place] [address] AV FISTULOGRAM STENT & PERIPHERAL ANGIOPLASTY 09/21/2024 10:30 AM EST Home Visit [facility], [facility] [address] [place] [place] [address] Heidi Garcia, RN [address] [place] [address] 09/23/2024 10:50 AM EST Telemedicine Pharmacy, [address] [phone] [place] [address] [facility] [address] 09/30/2024 9:45 AM EDT Imaging Radiology [facility] [place] [phone] 09/30/2024 11:00 AM EDT Office Visit Podiatry [facility] [address] [facility] [place] [phone] Calli Avila DPM [facility] [place] [address] 10/14/2024 2:50 PM EDT Office Visit Vascular Surgery, [address] [place] [address] Sterling Cates MD [address] [facility] [place] [address] 11/30/2024 10:00 AM EDT Nurse Only Nutrition & Weight Management, [facility] [address] [facility] [place] [address] [facility] [address] [facility] [place] [address] 12/09/2024 12:57 PM EDT Hospital Encounter OR [facility], Operating Room, [facility] - 4th Floor [address] [place] [phone] Himanshu Rivero, DO [address] [place] [address] 12/09/2024 12:57 PM EDT - 12/09/2024 1:38 PM EDT Surgery OR [facility], Operating Room, [facility] - 4th Floor [address] [place] [phone] Himanshu Rivero, DO [address] [place] [address] COLONOSCOPY FLEXIBLE PROXIMAL DIAGNOSTIC 12/21/2024 10:30 AM EDT Office Visit Gastroenterology, [facility] [address] [place] [address] Emi Queen CRNP [address] [place] [address] 03/10/2025 1:20 PM EDT [facility] [address] [facility] [phone] Joanne Parks, PALinn [address] [place] [address] [place] [address] Scheduled Procedures Name Priority Associated Diagnoses Date/Ti [...] this encounter Medical Devices Implanted Type Area Binder Operator Device Identifier Shelf Expiration Date Model / Serial / Lot Coil Vortex 35 Pltinm [id number] - [id number] Implanted:Qty: 1 on 11/27/2021 by Sterling Cates [place] [facility]: Upper Arm [employer] : NEURO INTR [id number] 08/15/2024 [id number] 1 / / [id number] Coil Vortex 35 Pltinm [id number] - [id number] Implanted:Qty: 1 on 11/27/2021 by Sterling Cates MD [place] [facility] [place]: Upper Arm [employer] : NEURO INTR [id number] 08/15/2024 [id number] 1 / / [id number] Coil Vortex 35 Pltinm [id number] - [id number] Implanted:Qty: 1 on 11/27/2021 by Sterling Cates MD [place] [facility]: Upper Arm [employer] : NEURO INTR [id number] 08/15/2024 [id number] 1 / / [id number] Coil Vortex 35 Pltinm [id number] - [id number] Implanted:Qty: 1 on 11/27/2021 by Sterling Cates MD [place] [facility]: Upper Arm [employer] : NEURO INTR [id number] 05/16/2024 [id number] 1 / / [id number] Azur 35 Detachable 5mm 11cm - [id number] Implanted:Qty: 1 on 03/19/2022 by Jose Devine MD [place] [facility]: Wrist [employer] [id number] 10/18/2025 [id number] / / [id number] Azur 35 Detachable 5mm 11cm - [id number] Implanted:Qty: 1 on 03/19/2022 by Jose Devine MD [place] [facility]: Wrist [employer] [id number] 06/19/2026 [id number] / / [id number] Mesh Flat Sheet 10x14 [id number] - [id number] Implanted:Qty: 1 on 12/11/2022 by Eros Dash MD [place] [facility] N/A: Abdomen CR BARD : DAVOL [id number] 06/17/2027 [id number] / / [id number] documented as of this encounter Visit Diagnoses Diagnosis Marginal ulcer- Primary Gastrojejunal ulcer, unspecified as acute or chronic, without mention of hemorrhage, perforation, or obstruction ESRD (end stage renal disease) on dialysis ([facility]) End stage renal disease Hypertensive 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 congestive heart failure and stage 5 chronic kidney disease on chronic dialysis ([facility]) Acute posthemorrhagic anemia Type 2 diabetes mellitus 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 dialysis, with long-term current use of insulin ([facility]) Hypothyroidism (acquired) Unspecified hypothyroidism Malignant melanoma of right upper extremity ([facility]) Aortic atherosclerosis ([facility]) Atherosclerosis of aorta Diabetic polyneuropathy associated with type 2 diabetes mellitus ([facility]) Advanced care planning/counseling discussion- Primary Other specified counseling Hypertensive 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 congestive heart failure and stage 5 chronic kidney disease on chronic dialysis ([facility]) Presence of cardiac pacemaker Cardiac pacemaker in situ SSS (sick sinus syndrome) ([facility]) Sinoatrial node dysfunction MINISTERIO on CPAP Obstructive sleep apnea (adult) (pediatric) Hypothyroidism (acquired) Unspecified hypothyroidism Type 2 diabetes mellitus 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 dialysis, with long-term current use of insulin ([facility]) S/P gastric bypass Bariatric surgery status ESRD (end stage renal disease) on dialysis ([facility]) End stage renal disease Recurrent ventral incisional hernia Incisional hernia without mention of obstruction or gangrene NO SHOW/FAILED TO KEEP APPOINTMENT- Primary Chronic diastolic heart failure ([facility])- Primary Chronic diastolic heart failure HTN, goal below 140/90 Unspecified essential hypertension Type 2 diabetes mellitus with hemoglobin A1c goal of less than 7.0% ([facility]) Hypothyroidism (acquired) Unspecified hypothyroidism Dyslipidemia, goal LDL below 100 Other and unspecified hyperlipidemia Major depressive disorder, single episode, moderate (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) Hyperparathyroidism, secondary renal ([facility]) Secondary hyperparathyroidism (of renal origin) End stage renal disease on dialysis ([facility]) End stage renal disease MINISTERIO on [...] Documents on File Type Date Recorded Patient Pharmacist Helper Saranya FIGUEROA 11/13/2020 [facility] ORDERS [...] Agents on File Name Relationship [facility] Zhen Finley Spouse Health Care Agent Care Teams Health Administration Teacher Relationship Specialty Start Date End Date Luis Fernando Rojas MD [facility] [place] [address] PCP - General Family Medicine 09/23/16 documented as of this encounter
--- OUTSIDE RECORDS SUMMARY | 2024-10-05 05:25 | External Medical Summary ---
Author Name Unknown Address Unknown Organization K1F:[facility] - [address] [place] [address] Laboratory Report Ordering Provider Test Date Status ARMAND MARCH 09/16/2024 08:38:00 Final Observation Date Value Abnormality Reference (Units ) Status Potassium 09/16/2024 08:38:00 4.3 3.5-5.1 (m mol/L) Final Performing Location [facility] - [address] [place] [address]
--- OUTSIDE RECORDS SUMMARY | 2024-10-05 05:25 | External Medical Summary ---
Author Name Unknown Address Unknown Organization : Laboratory Report Ordering Provider Test Date Status MADI SANTO 09/16/2024 08:42:57 Final Observation Date Value Abnormality Reference (Units ) Status Glucose Point of Care 09/16/2024 08:42:57 151 Above high normal 70-120 (mg/dL) Final Performing Location
--- OUTSIDE RECORDS SUMMARY | 2024-10-05 05:25 | External Medical Summary | Summary of Care ---
Author Name Unknown Organization [facility] Address [address] [place] [address] Phone [phone] Care Team Providers Care Obstetric Assistant Name Role Phone Luis Fernando Rojas MD Primary Care Provider [phone] Reason for Visit * Auth/Cert Specialty Diagnoses / Procedures Referred By Contlucia t Referred To Contact Diagnoses ESRD (end stage renal disease) on dialysis (HCC) ESRD (end stage renal disease) on dialysis ([facility]) [N18.6, Z99.2] Procedures INTRO CATH DIALYSIS CIRCUIT W/TRANSCATH PLACEMENT IV STENT AV FISTULOGRAM STENT & PERIPHERAL ANGIOPLASTY Sterling Cates MD [address] [place] [address] Phone: tel: fax: OR [facility], Operating Room, [facility] Floor [address] [place] [address] Phone: tel: Referral ID Status Reason Start Date Expiration Date Visits Re quested Visits Authorized [id number] Encounter Details Date Type Department Care Team (Latest Contact Info) Description 09/16/2024 8:11 AM EST - 09/16/2024 11:21 AM EST Hospital Encounter OR [facility], Operating Room, [facility] Floor [address] [place] [address] Sterling Cates MD [address] [place], [place] [id number] Discharge Disposition: Home - Self Care Allergies Active Allergy Reactions Criticality Noted Date Comments Salvador Inhibitors Other (Please comment),Cough High HyperKalemia documented as of this encounter (statuses as of 09/17/2024) Medications Melatonin 10 MG Tablet Take 12 mg by mouth at bedtime. Active Aspirin 81 MG Oral Tablet ChewableIndicat ions:Type 2 diabetes mellitus 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 dialysis, with long-term current use of insulin ([facility]) Take 1 Tab by mouth at bedtime. with food. 90 Tab 3 02/17/20 21 Active FreeStyle Jennifer 2 Sensor Use as directed. Replace every 14 days (supplied through [facility]) 7 Each 3 05/17/20 21 Active [...] hemoglobin A1c goal of less than 7.0% ([facility]) Use 4 times daily with [...] 100 Capsule 3 5 8:57 AM EST 03/18/20 24 Active Carvedilol 12.5 [...] 4 6:47 AM EDT 04/20/20 24 Active Albuterol Sulfate 0.63 MG/3ML Inhalation Nebulization [...] provider for further management. 90 Capsule 3 08/06/19 25 Active amLODIPine Besylate 5 MG [...] day 30 mL 4 08/26/19 25 Active hydrALAZINE HCl 100 MG Oral TabletIndicatio ns:HTN, goal below 140/90 Take 1 Tablet by mouth in the morning and 1 Tablet at noon and 1 Tablet before bedtime. 270 Tablet 2 09/14/19 25 Active buPROPion HCl ER (SR) 150 MG Oral Tablet Extended Release 12 Hour (Wellbutrin SR) Take 1 Tablet by mouth every evening. 90 Tablet 4 1:04 PM EST 06/02/20 24 025 Discontinued Amoxicillin-Pot Clavulanate 875-125 MG Oral Tablet (Augmentin) Take 1 Tablet by mouth in the morning and 1 Tablet before bedtime. Do all this for 7 days. 17 Tablet 06/22/20 24 025 Discontinued guaiFENesin ER 600 MG Oral Tablet Extended Release 12 Hour (Humibid LA) Take 1 Tablet by mouth in the morning and 1 Tablet before bedtime. 025 Discontinued Promethazine-Co deine 6.25-10 MG/5ML Oral Syrup (Phenergan and Codeine) Take 5 mL by mouth 4 times a day as needed for Cough. 120 mL 1 07/15/20 24 025 Discontinued Amoxicillin 875 MG Oral Tablet Take 1 Tablet by mouth in the morning and 1 Tablet before bedtime. 08/16/19 025 Discontinued documented as of this encounter (statuses as of 09/17/2024) Active Problems Problem Noted Date Diagnosed Date [...] 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 10/15/2022 [employer] OTHER*[id number] 01/01/2022 S/P gastric bypass 01/01/2022 [address]ialysis AV [...] as of this encounter (statuses as of 09/17/2024) Resolved Problems Problem Noted Date Diagnosed Date [...] long-term use 11/19/20182018 Overview (05/20/2019): Duplicate terminal gauger (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 insulin [...] T-tube placement 04/16/2017 05/29/2017 [employer] Other*[id number] 04/13/2013 08/27/2016 Overview (04/13/2013): Study Title: Genomic Markers for Patients with Cardiovascular Disease Project # [id number] Quarter Trimmer: Siena Laws MD [phone] Hypertensive heart disease 03/25/2013 1 07/29/2016 Neuropathy, [...] as of this encounter (statuses as of 09/17/2024) Immunizations Name Administration Dates Next Due COVID-19 mRNA, LNP-s, No Pre serve, 2-Dose Series (Moderna) 04/09/2021,09/23/2020,08/19/2020 COVID-19, LNP-s, No Preserve , Espinoza-sucrose, Ages 12+ (Pfizer) 01/08/2022 COVID-19, MRNA-LNP, PF, 30 M CG/0.3 mL, 12 YRS AND ABOVE, IM (PFIZER-Comirnaty) 06/02/2024 HEPATITIS B VACCINE, RECOMB, 20 MCG/ML, ADULT (HEPLISAV-B) 09/05/2021,05/09/2021,04/04/2021,02/18 Hepatitis B, 20+ yrs 09/16/2018,04/14/2018,03/1104/11/2018 Pneumococcal Conjugate Vacci ne, 20-valent ([id number]) 06/22/2024,12/02/2023(Deferred: - pt states she's already received) [...] Sign Reading Time Taken Comments Blood Pressure 121/52 09/16/2024 11:00 AM EST Pulse 69 09/16/2024 11:00 AM EST Temperature 36.4 C (97.5 F) 09/16/2024 11:[address] Respiratory Rate 18 09/16/2024 11:00 AM EST Oxygen Saturation 94% 09/16/2024 11:00 AM EST Inhaled Oxygen Concentration - - Weight 104.3 kg (230 lb) 09/16/2024 8:24 AM EST Height 160 cm (5' 3") 09/16/2024 8:24 AM EST Body Mass Index 40.74 09/16/2024 8:24 AM EST documented in this encounter Functional [...] Rabia Granados RN documented in this encounter Discharge Instructions * Discharge Instr - AVS* Sterling Cates MD - 09/16/2024 10:33 AM EST Patient instructions: If you go home with [...] pain. If you develop a fever, contact [phone] to schedule an evaluation. Your fistula is okay to use for dialysis at your next session Follow-up in Vascular Surgery Clinic as needed. documented in this encounter Progress Notes * Sterling Cates MD - 09/16/2024 10:36 AM EST [facility]-[address] [address] OUTPATIENT SURGERY DISCHARGE SUMMARY NOTE Name: Candi Finley Location: [facility] Date: 09/16/2024 Time: 10:36 AM Surgery Date: 09/16/2024 Procedure: AV FISTULOGRAM & PERIPHERAL ANGIOPLASTY Right Surgeon: Sterling Cates MD Discharge Diagnosis: ESRD After examination of this patient, I have determined she is ready for discharge to home when the patient meets criteria. Discharge instructions were given to the patient. documented in this encounter H&P Notes * Sterling Cates MD - 09/16/2024 9:36 AM EST HISTORY & PHYSICAL INTERVAL NOTE - Vascular Surgery [address] [address] History and Physical Update: Name: Candi Finley Location: OR [facility]/[place] Date: 09/16/2024 Time: 9:36 AM DATE OF HISTORY AND PHYSICAL: today Patient Vitals for the past 24 hrs: BP Temp Temp src Pulse Resp SpO2 Height Weight 09/16/24 0824 124/64 36.6 C (97.9 F) Tympanic 79 16 94 % 1.6 m (5' 3") 104.3 kg (230 lb) Heart Exam: regular rate and rhythm Lung Exam: clear to auscultation bilaterally Other Pertinent Physical Exam: R RC AVF pulsitile with thrill I have reviewed the H&P previously performed and examined the patient today. There are no new findings noted. ANTICOAGULANTS: Does the patient take Coumadin (warfarin)? no Does the patient take any other anticoagulants? no Sterling Cates MD Associate Vascular Surgeon Division of Vascular and Endovascular Surgery [facility] * Sterling Cates MD - 09/16/2024 9:32 AM EST HISTORY AND PHYSICAL EXAMINATION - Vascular Surgery [address] [address] Name: Candi Finley Location: OR [facility]/[place] Date: 09/16/2024 Time: 9:33 AM PRESENTING PROBLEM: Malfunctioning Right AV Fistula HISTORY OF PRESENT ILLNESS: Candi Finley is a 63 year old, female that presents to pre-op today for Right AV Fistulagram with possible intervention Had a couple fainting spells recently for which she is working with her medical team to address Recently underwent a previous Fistulagram on 03/30/[address] Urena and another with Shan in May 2024 Does the patient take Coumadin (warfarin)? no Does the patient take any other anticoagulants? no HISTORY OF PRESENT ILLNESS: Candi Finley is [...] taken 03/29 Phone encounter (03/17/2024) Patti from [employer] calling regarding possible angiogram or fistula gram. [...] angioplasty of cephalic vein with 7 mm [employer] [place] balloons) 2. Coil embolization of of competing [...] IN.PACT drug eluting balloon and 6 mm [employer] [place] balloon) -- Dr. Devine 05/13/2023 1. Right upper extremity diagnostic fistulagram with peripheral venous angioplasty 2. Cephalic vein angioplasty with 6mm balloon --Dr. Matt 12/02/2023 Right arm fistulagram with forearm cephalic vein angioplasty 03/2024 fistulagram (Romel 6 mm MANAGER LOSS PREVENTION cephalic) 05/2024 fistulagram (Salzler 6 mm DCB MANAGER LOSS PREVENTION cephalic) HOSPITAL PROBLEM LIST: 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 Type 2 diabetes mellitus with hemoglobin A1c goal of less than 7.0% ([facility]) Vitamin D deficiency HTN, goal below 140/90 Major depressive disorder, recurrent episode, moderate with seasonal pattern ([facility]) Rosacea Hypothyroidism (acquired) Mitral annular calcification Type 2 diabetes mellitus with diabetic polyneuropathy, with long-term current use of insulin ([facility]) Chronic diastolic heart failure ([facility]) History of endometrial cancer Hyperparathyroidism, secondary renal ([facility]) MINISTERIO on CPAP Stable proliferative diabetic retinopathy of both eyes associated with type 2 diabetes mellitus ([facility]) SALVADOR inhibitor intolerance SSS (sick sinus syndrome) ([facility]) PAT (paroxysmal atrial tachycardia) ([facility]) Gastroesophageal reflux disease without esophagitis Hypertensive 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 congestive heart failure and stage 5 chronic kidney disease on chronic dialysis ([facility]) Morbid obesity with BMI of 40.0-44.9, adult ([facility]) Postsurgical malabsorption, not elsewhere classified Diabetic gastroparesis (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) Presence of cardiac pacemaker End stage renal disease on dialysis ([facility]) Marginal ulcer Aortic atherosclerosis ([facility]) Dialysis AV fistula malfunction ([facility]) [employer] OTHER*[id number] S/P gastric bypass 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 ([facility]) Pulmonary hypertension, unspecified ([facility]) Recurrent ventral incisional hernia Major depressive disorder, single episode, moderate ([facility]) 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, with long-term current use of insulin ([facility]) PAST MEDICAL HISTORY: Past Medical History: Diagnosis Date Body mass index 40 and over, adult CHF NYHA class I ([facility]) 07/2009 Chronic marginal ulcer Deficiency of other vitamins Vit D Depressive disorder, not elsewhere classified Dialysis patient ([facility]) Diverticulosis of colon (without mention [...] ESRD (end stage renal disease) on dialysis ([facility]) 03/14/2021 HTN, goal below 130/80 Kidney disease, chronic, stage III (GFR 30-59 ml/min) (HCC) 10/02/2011 More specified code listed on PL Historical Malignant melanoma of right upper extremity (HCC) 05/07/2021 Malignant neoplasm of corpus uteri (HCC) 1993 Melanoma (HCC) L calf R arm Motion sickness Neuropathy, diabetic ([facility]) 02/18/2013 Osteoarthritis of hip mild to mod bilat hip pain Other specified anemias low iron Other specified glaucoma denied by patient PONV (postoperative nausea and vomiting) Renal failure hemodialysis SBO (small bowel obstruction) ([facility]) 04/25/2017 Sleep apnea 07/2009 CPAP 11 cm H2O. C-flex 2 PAST SURGICAL HISTORY: Past Surgical History: Procedure Laterality Date ABD WALL HERNIA REPAIR, LAP, REDUCIBLE N/A 01/28/2022 LAPAROSCOPIC VENTRAL/UMBILICAL HERNIA REPAIR, REDUCIBLE W OR W/O MESH performed by Honorio Ashford MD at [place] [facility] AV ACCESS, DIRECT ANASTOMOSIS Right 08/16/2021 ARTERIOVENOUS ANASTOMOSIS OPEN DIRECT ANY SITE performed by Sterling Cates MD at [facility] BREAST BIOPSY Left 12/26/2008 Usual Ductal Hyperplasia BREAST BIOPSY Left 09/20/2010 Benign BX LYMPH NODE DEEP AXIL Right 05/22/2021 BIOPSY LYMPH NODE DEEP AXILLARY OPEN performed by Diamond Rivero MD at OR [facility] COLONOSCOPY, DIAGNOSTIC (RECTUM) 12/02/2013 hyperplastic polyps, diverticulosis, repeat 5 yrs/done @ [facility] COLONOSCOPY, DIAGNOSTIC (RECTUM) 12/11/2017 adenomatous polyps, diverticulosis, repeat 5 yrs/[facility] COLONOSCOPY, DIAGNOSTIC (RECTUM) N/A 02/27/2023 diverticulosis/hemorrhoids/biopsies show adenomatous polyps/recall 5 years/Colonoscopy/[place] CORONARY ANGIOGRAPHY W/LEFT HEART CATH 04/13/2013 CORONARY ANGIOGRAPHY W/LEFT HEART CATH performed by Ulises Reed MD at CARDIAC LABS [facility] DIALYIS CIRCUIT VASCULAR EMBOLIZATION OCCLUSION ENDOVASC IMAGING Right 11/27/2021 EMBOLIZATION DIALYSIS CIRCUIT performed by Sterling Cates MD at [place] [facility] EGD, FLEXIBLE, DIAGNOSTIC 05/03/2014 mild-mod inflammation/done @ [facility] EGD, FLEXIBLE, DIAGNOSTIC N/A 04/16/2017 ESOPHAGOGASTRODUODENOSCOPY (EGD), FLEXIBLE, TRANSORAL, DIAGNOSTIC performed by Sukumar Polanco MDat [place] [facility] EGD, FLEXIBLE, DIAGNOSTIC 05/05/2020 mild-mod inflammation on bx / ESOPHAGOGASTRODUODENOSCOPY (EGD), FLEXIBLE, TRANSORAL, DIAGNOSTIC performed by Adin Borja MD at ENDOSCOPY [facility] EGD, FLEXIBLE, DIAGNOSTIC N/A 04/25/2021 ESOPHAGOGASTRODUODENOSCOPY (EGD), FLEXIBLE, TRANSORAL, DIAGNOSTIC [facility], DIAGNOSTIC 06/13/2021 gastrojejunal anastomosis characterized by ulceration, repeat 2 mo / [facility] IDENTIFY SENTINEL NODE, RADIOACTIVE TRACER Right 05/22/2021 INJECTION PROCEDURE FOR IDENTIFICATION SENTINEL NODE performed by Diamond Rivero MD at OR [facility] INFORMATION Left 2019 Pacemaker placement. INTRO CATH DIALYSIS CIRCUIT DX ANGIOGRAPHY FLUORO S&I Right 10/10/2022 AV FISTULOGRAM DIAGNOSTIC performed by Jose Devine MD at OR [facility] INTRO CATH DIALYSIS CIRCUIT W/TRANSCATH PLACEMENT IV STENT Right 03/19/2022 AV FISTULOGRAM STENT & PERIPHERAL ANGIOPLASTY performed by Jose Devine MD at [place] [facility] INTRO CATH DIALYSIS CIRCUIT W/TRANSCATH PLACEMENT IV STENT Right 05/13/2023 AV FISTULOGRAM STENT & PERIPHERAL ANGIOPLASTY performed by Williams Matt MD at OR [facility] INTRO CATH DIALYSIS CIRCUIT W/TRANSCATH PLACEMENT IV STENT Right 12/02/2023 AV FISTULOGRAM STENT & PERIPHERAL ANGIOPLASTY performed by Micheal Urena MD at [place] [facility] INTRO CATH DIALYSIS CIRCUIT W/TRANSCATH PLACEMENT IV STENT Right 06/01/2024 AV FISTULOGRAM STENT & PERIPHERAL ANGIOPLASTY performed by Beto Torrez MD at [place] [facility] INTRO CATH DIALYSIS CIRCUIT W/TRANSLUM BALLOON ANGIOPLASTY Right 11/27/2021 AV FISTULOGRAM & PERIPHERAL ANGIOPLASTY performed by Sterling Cates MD at [place] [facility] INTRO CATH DIALYSIS CIRCUIT W/TRANSLUM BALLOON ANGIOPLASTY Right 05/30/2022 AV FISTULOGRAM & PERIPHERAL ANGIOPLASTY performed by Beto Torrez MD at OR [facility] INTRO CATH DIALYSIS CIRCUIT W/TRANSLUM BALLOON ANGIOPLASTY Right 02/25/2023 AV FISTULOGRAM & PERIPHERAL ANGIOPLASTY performed by Jose Devine MD at [place] [facility] INTRO CATH DIALYSIS CIRCUIT W/TRANSLUM BALLOON ANGIOPLASTY Right 03/30/2024 AV FISTULOGRAM & PERIPHERAL ANGIOPLASTY performed by Micheal Urena MD at OR [facility] IR DUPLEX ULTRASOUND (FOR INTERVENTIONAL RADIOLOGY USE ONLY) 03/02/2021 IR FISTULAGRAM AV DIALYSIS SHUNT IR VENOUS ACCESS NON-MEDIPORT 07/18/2022 LAPAROSCOPE PROCEDURE, LIVER N/A 04/16/2017 UNLISTED LAPAROSCOPIC PROCEDURE LIVER performed by Sukumar Polanco MD at [facility] LAPAROSCOPE PROCEDURE, LIVER N/A 01/28/2022 UNLISTED LAPAROSCOPIC PROCEDURE LIVER performed by Honorio Ashford MD at OR [facility] LAPAROSCOPIC GASTRIC BYPASS/JODY-EN-Y N/A 04/16/2017 LAPAROSCOPIC GASTRIC RESTRICTIVE BYPASS JODY EN Y performed by Sukumar Polanco MD at OR [facility] LAPAROSCOPY; CHOLECYSTECTOMY N/A 04/16/2017 LAPAROSCOPIC CHOLECYSTECTOMY performed by Sukumar Polanco MD at OR [facility] MISCELLANEOUS ORDER ([facility] ONLY) 05/2009 breast biopsy/ [...] performed by Sukumar Polanco MD at OR [facility] REPLACE,COMP,FLACO CENT ACC DEV N/A 03/22/2021 REPLACEMENT COMPLETE TUNNELED CENTRAL CATHETER NO PORT performed by Luis Fernando Hassan DO at OR [facility] REVISE STOMACH-BOWEL FUSION N/A 01/28/2022 REVISION GASTROJEJUNAL ANASTOMOSIS performed by Honorio Ashford MD at OR [facility] RMV MALG LSN TRK/ARM/LG >4.0CM Right 05/22/2021 EXCISION MALIGNANT TRUNK ARM LEG OVER 4CM performed by Diamond Rivero MD at OR [facility] RPR AA HERNIA 1ST 3-10 CM REDUCIBLE N/A 12/11/2022 INCISIONAL/VENTRAL/SPIGELIAN HERNIA REPAIR INITIAL 3-10 CM REDUCIBLE performed by Eros Dash MD at OR [facility] TOTAL ABD HYSTERECTOMY W/WO REMOVAL OF TUBE(S) Bilateral age 33 TOTAL HYSTERECTOMY TAHBSO (endometrial ca) TRANSECTION VAGUS NRV,TRUNCAL N/A 01/28/2022 LAPAROSCOPIC TRANSECTION VAGUS NERVES TRUNCAL performed by Honorio Ashford MD at OR [facility] UPPER GI ENDOSCOPY FAMILY HISTORY: Family History [...] Social History Tobacco Use Smoking status: Never Passive exposure: [...] sugey 3 mL 3 mL IV Push Q8H Abundio Bird CRNP ALLERGIES: Salvador inhibitors ROS: All other systems negative except for those in the history of present illness (HPI). PHYSICAL EXAMINATION: BP: 124 mmHg/64 mmHg (09/16/24823) Pulse: 79 (09/16/24823) Resp: 16 (09/16/24823) Temp: 36.61 C (09/16/24823) Temp Summary: Temp Min: 36.6 C (97.9 F) Max: 36.6 C (97.9 F) SpO2: 94 % (09/16/24823) O2 flow rate: Supplemental O2 Delivery: Room Air, None (09/16/24831) Gen: A&Ox3 HENT: Supple, No LAD Pulm: Comfortable on RA Cardio: RRR on monitor Abd: Soft, non distended, no masses MSK: Spont moves extremities Neuro: Motor sensory intact Vascular: Palpable radial pulse bilaterally, Right AVF pulsatile with thrill LABS: Labs reviewed as indicated below: Recent Results (from the past 12 hours) POTASSIUM Collection Time: 09/16/24 8:38 AM Result Value Ref Range POTASSIUM 4.3 3.5 - 5.1 mmol/L GLUCOSE METER, POINT OF CARE Collection Time: 09/16/24 8:42 AM Result Value Ref Range Glucose - POCT 151 (H) 70 - 120 mg/dL IMAGING: No imaging results in the last 72 hours IMPRESSION and PLAN: - Plan for Right AV Fistulagram with possible intervention today The patient was counseled at length regarding the nature of hemodialysis access procedures and the risks, benefits and alternatives of this surgery. The patient and I discussed that given enough time, all hemodialysis access will fail and will require periodic endovascular procedures and/or open surgery. I have discussed with the patient that they are at very high risk for the following anticipated complications due to the patient's co-morbidities including hemodialysis access thrombosis/malfunction/rupture, wound complications including nonhealing and wound infection, steal syndrome requiring additional procedures such as bypass surgery or arteriovenous access ligation, heart attack, respiratorycomplications, worsening kidney function requiring dialysis, nerve damage, bleeding or thrombosis requiring transfusion/re- operation, hemorrhage/thrombosis/aneurysm formation at the site of catheter i nsertion, clot or blockage of blood flow to the extremities, re-operation for limb ischemia, accessthrombosis or digit/hand/limb amputation. I have also explained to the patient that other risks of the procedure include, but are not limitedto, radiation injury, allergic reaction to the contrast, stroke, transfusion reaction, infection, or . The patient understands the seriousness of the situation and would like to proceed with theprocedure. The patient has had a thorough medical evaluation and management of symptoms as outlined above. Theplan is to proceed initially with angiography and then immediate intervention based upon the results. I plan on proceeding with an endovascular procedure as the only other alternative would be an invasive open surgical procedure (which the patient understands may still be required). If the lesion(s) are amenable to an endovascular approach, angioplasty will be performed first for appropriate lesions. Stenting will also be performed for lesions known to have a poor result from angioplasty alone and those lesions that demonstrate a poor result post angioplasty. I also discussed the possible need for placement of a dialysis catheter. I have discussed with the patient that they are at very high risk for the following anticipated complications due to the patient's co-morbidities including pneumothorax that may require a chest tube, air embolism, catheter clotting and replacement, catheter fracture, catheter malfunction, bleeding, catheter infection requiring removal or replacement or venous injury. The patient is also at anticipated high risk for future central vein stenosis or occlusion which can affect clotting of the catheter. Other complications related to a catheter discussed included pulmonary embolism, deep vein thrombosis requiring anticoagulation, , stroke, respiratory complications and radiation injury. The patient understands the seriousness of the situation and would like to proceed with surgery. All questions were answered, and informed consent was obtained. Will plan on additional dialysis access surgery to ensure continued functionality. Sterling Cates MD Associate Vascular Surgeon Division of Vascular and Endovascular Surgery [facility] 09/16/2024 documented in this encounter Nursing Notes * Chica Calvert RN - 09/16/2024 11:15 AM EST [address] [address] SameDay Surgery Discharge Note Name: Candi Finley Date: 09/16/2024 Time: 11:15 AM Discharge Disposition: Home Responsible adult as escort home: yes Transport Mode: Wheelchair Accompanied by: staff To: Car Belongings with patient: Yes Patient meets criteria to be transferred or discharged. * Chica Jiang RN - 09/15/2024 8:55 AM EST Patient identified by: name/birthdate Person taught: Patient Optime case procedure confirmed with patient/parent/guardian - no consent signed. Laterality confirmed as Right Surgery date at time of Pre-Surgery Center Encounter: 09/16/24 What procedure is patient having? Right arm fistulagram In an emergency, is patient willing to accept blood products or blood transfusion? unknown Do you need to place a blood bank order? No Anesthesia consent pool notified? N/A Anesthesia evaluation requested per case documentation? No Preop Evaluation Requested? No PATIENT EDUCATION SCREENING Person taught: Patient Motivation Level: Asks Questions and Eager to Learn Language Barrier: No Physical Barrier: N/A METHOD: Lecture-telephone interview Patient Preferred Learning Methods: Lecture-Telephone interview Health History interview completed, questions answered, and the following patient instructions provided via telephone interview: Preoperative bathing instructions General preoperative instructions NPO instructions Please follow the pre-operative instructions provided by your vascular surgeon. If you have any questions regarding these instructions please contact your surgeon's office at [phone]. OUTCOME: State / Describe / Explain, Needs Reinforcement, and Verbalizes understanding of education documented in this encounter OR Notes * OR Surgeon - Sterling Cates MD - 09/16/2024 10:30 AM EST [facility] [phone] OPERATIVE REPORT Name: Candi Finley Date: 09/16/2024 Time: 10:30 AM Location: OR [facility] Service: Vascular Surgery Date of Operation: 09/16/2024 Pre-op Diagnosis: Malfunctioning right radial artery to cephalic vein arteriovenous fistula Post-op Diagnosis: Same Surgeon: Sterling Cates MD Assistants: None. There were no qualified residents or fellows available to assist. Anesthesia: Monitored local anesthesia with sedation Operation: Diagnostic fistulagram with peripheral venous angioplasty of the cephalic vein with a 6 mm drug coated angioplasty balloon Findings: Patent arteriovenous anastomosis. Stenotic cephalic vein in the forearm. Otherwise patentcentral outflow. Specimen and Disposition: None Estimated Blood Loss: 5 ml Fluids: 100 mL crystalloid Urine Output: None Drains/Implants: None Complications: None Postoperative Condition: Stable Indications and [...] sterile fashion. The arteriovenous fistula was punctured peripherally. After a series of standard maneuvers, a 4 Brazilian microsheath was left within the AV fistula at the puncture site. A complete fistulagram was performed. Findings are as noted above. Next, a guidewire was threaded through the micro-sheath and this was up sized to a 6 Brazilian sheath. The patient was systemically heparinized. The stenotic portion of the cephalic vein was crossed with a guidewire and underwent angioplasty using a 6 mm standard angioplasty balloon. This was followed by drug coated balloon angioplasty. Follow-up imaging revealed a satisfactory result. The indwelling sheath(s) were removed and the puncture site(s) were closed with a 4-0 Monocryl suture. All guidewires and catheters were removed. Hemostasis was good. Sponge count and needle counts were correct. Attestation: I understand that section 1842 (b)(7)(D) of the Social Security Act generally prohibits Medicare physician fee schedule payment for the services of [id number] in teaching hospitals when qualified residents are available to furnish such services. I certify that the services for which payment is claimed were medically necessary, and that no qualified resident was available to perform the services. I further understand that these services are subject to post-payment review by the Medicare carrier. I performed the procedure I was present and scrubbed for the entire procedure Sterling Cates MD Associate Vascular Surgeon Division of Vascular and Endovascular Surgery [facility] documented in this encounter Plan of Treatment Upcoming Encounters Date Type Department Care Team (Late st Contact Info) Description 09/21/2024 10:30 AM EST Home Visit [facility] [address] [facility] [place] [address] Heidi Garcia RN [address] [place] [address] 09/23/2024 10:50 AM EST Telemedicine Pharmacy, [facility] [address] [facility] [phone] [facility] [address] [place] [address] 09/30/2024 9:45 AM EDT Imaging Radiology [facility] [facility] [address] [place] [phone] 09/30/2024 11:00 AM EDT Office Visit Podiatry [facility] [address] [place] [phone] Calli Avila DPM [address] [facility] [place] [address] 10/14/2024 2:50 PM EDT Office Visit Vascular Surgery, [address] [address] Sterling Cates MD [address] [facility] [address] 11/30/2024 10:00 AM EDT Nurse Only Nutrition & Weight Management, [facility] [address] [facility] [place] [address] Boni Nurse Gi Nutrition [facility] [address] [place] [address] 12/09/2024 12:57 PM EDT Hospital Encounter OR [facility], Operating Room, [facility] - 4th Floor [address] [facility] [place] [phone] Himanshu Rivero, DO [address] [place] [address] 12/09/2024 12:57 PM EDT - 12/09/2024 1:38 PM EDT Surgery OR [facility], Operating Room, [facility] - 4th Floor [address] [place] [phone] Himanshu Rivero, DO [address] [place] [address] COLONOSCOPY FLEXIBLE PROXIMAL DIAGNOSTIC 12/21/2024 10:30 AM EDT Office Visit Gastroenterology, [facility] [address] [place] [address] Emi Queen CRNP [address] [place] [address] 03/10/2025 1:20 PM EDT Office Visit [facility]ology[facility] [address] [place] [phone] Joanne Parks PA-C [address] [place] [address] [place] [address] Scheduled Orders Name Type Priority Associated Diagnoses Orde r Schedule GLUCOSE METER, POINT OF CARE (COMMUNICATION ORDER) Point of Care Testing Routine One Time for 1 Occurrences starting 09/16/2024 until 09/16/2024 Scheduled Procedures Name Priority Associated Diagnoses Date/Ti [...] this encounter Medical Devices Implanted Type Area Die Technician Device Identifier Shelf Expiration Date Model / Serial / Lot Coil Vortex 35 Pltinm [id number] - [id number] Implanted:Qty: 1 on 11/27/2021 by Sterling Cates MD [place] [facility] [place]: Upper Arm [employer] : NEURO INTR [id number] 08/15/2024 [id number] / / [id number] Coil Vortex 35 Pltinm [id number] - [id number] Implanted:Qty: 1 on 11/27/2021 by Sterling Cates MD at [place] [facility] [place]: Upper Arm [employer] : NEURO INTR [id number] 08/15/2024 [id number] / / [id number] Coil Vortex 35 Pltinm [id number] - [id number] Implanted:Qty: 1 on 11/27/2021 by Sterling Cates MD at [place] [facility] [place]: Upper Arm [employer] : NEURO INTR [id number] 08/15/2024 [id number] / / [id number] Coil Vortex 35 Pltinm [id number] - [id number] Implanted:Qty: 1 on 11/27/2021 by Sterling Cates MD at [place] [facility] [place]: Upper Arm [employer] : NEURO INTR [id number] 05/16/2024 [id number] / / [id number] Azur 35 Detachable 5mm 11cm - [id number] Implanted:Qty: 1 on 03/19/2022 by Jose Devine MD at [place] [facility] Right: Wrist [employer] [id number] 10/18/2025 [id number] / / [id number] Azur 35 Detachable 5mm 11cm - [id number] Implanted:Qty: 1 on 03/19/2022 by Jose Devine MD at [place] [facility] [place]: Wrist [employer] [id number] 06/19/2026 [id number] / / [id number] Mesh Flat Sheet 10x14 [id number] - [id number] Implanted:Qty: 1 on 12/11/2022 by Eros Dash MD at [place] [facility] N/A: Abdomen CR BARD : DAVOL [id number] 06/17/2027 [id number] / / [id number] documented as of this encounter Procedures Procedure Name Priority Date/Time Associated Diagnosis Comments VASC PROCEDURE IN VASCULAR ANGIO SUITE Routine 09/16/2024 10:36 AM EST GLUCOSE METER, POINT OF CARE BHARGAVI 09/16/2024 8:42 AM EST POTASSIUM STAT 09/16/2024 8:38 AM EST documented in this encounter Results * VASC PROCEDURE IN VASCULAR ANGIO SUITE (09/16/2024 10:36 AM EST) Narrative Scheduling, Silent - 09/16/2024 10:36 AM EST This procedure will not be read by a Radiologist. Please see operative note. us Sterling Cates MD RAD SPECIAL PROCEDURES Fi nal Result * (ABNORMAL) GLUCOSE METER, POINT OF CARE (09/16/2024 8:42 AM EST) Glucose - POCT 151(H) 70 - 120 mg/dL 09/16/2024 8:44 AM EST [facility] Blood Whole blood specimen / Unknown 09/16/2024 8:42 AM EST 09/16/2024 8:44 AM EST us Sterling Cates MD LAB POINT OF CARE TEST DOCKED DEVICE UNSOLICITED RESULTS Final Result [facility] [address] [facility] [place] [address] * POTASSIUM (09/16/2024 8:38 AM EST) POTASSIUM 4.3 3.5 - 5.1 mmol/L 09/16/2024 8:54 AM EST LABORATORY GL Blood Venous blood specimen / Unknown Venipuncture / Unknown 09/16/2024 8:38 AM EST 09/16/2024 8:42 AM EST Abundio SINGER LAB BLOOD ORDERABLES F inal Result LABORATORY [address] [address] documented in this encounter Visit Diagnoses Diagnosis Marginal ulcer- Primary Gastrojejunal ulcer, unspecified as acute or chronic, without mention of hemorrhage, perforation, or obstruction ESRD (end stage renal disease) on dialysis ([facility]) End stage renal disease Hypertensive 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 congestive heart failure and stage 5 chronic kidney disease on chronic dialysis ([facility]) Acute posthemorrhagic anemia Type 2 diabetes mellitus 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 dialysis, with long-term current use of insulin ([facility]) Hypothyroidism (acquired) Unspecified hypothyroidism Malignant melanoma of right upper extremity ([facility]) Aortic atherosclerosis ([facility]) Atherosclerosis of aorta Diabetic polyneuropathy associated with type 2 diabetes mellitus ([facility]) Advanced care planning/counseling discussion- Primary Other specified counseling Hypertensive 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 congestive heart failure and stage 5 chronic kidney disease on chronic dialysis (HCC) Presence of cardiac pacemaker Cardiac pacemaker in situ SSS (sick sinus syndrome) ([facility]) Sinoatrial node dysfunction MINISTERIO on CPAP Obstructive sleep apnea (adult) (pediatric) Hypothyroidism (acquired) Unspecified hypothyroidism Type 2 diabetes mellitus 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 dialysis, with long-term current use of insulin ([facility]) S/P gastric bypass Bariatric surgery status ESRD (end stage renal disease) on dialysis ([facility]) End stage renal disease Recurrent ventral incisional hernia Incisional hernia without mention of obstruction or gangrene NO SHOW/FAILED TO KEEP APPOINTMENT- Primary Chronic diastolic heart failure (HCC)- Primary Chronic diastolic heart failure HTN, goal below 140/90 Unspecified essential hypertension Type 2 diabetes mellitus with hemoglobin A1c goal of less than 7.0% ([facility]) Hypothyroidism (acquired) Unspecified hypothyroidism Dyslipidemia, [...] unspecified type Malfunction of arteriovenous dialysis fistula, sequela- Primary History of colonic polyps Personal history of colonic polyps Diarrhea documented in this encounter Administered Medications Inactive Administered Medications - up to 3 most recent administrations Medication Order MAR Action Action Date Dose Rate Site 1/ NSS infusion Intravenous, at 10 mL/hr, CONTINUOUS, Starting on Fri09/16/24 at 0900, Until Fri09/16/24 at 1521, Pre-OpIndications:Malfunction of arteriovenous dialysis fistula, sequela Restarted 09/16/2024 10:22 AM EST Continue from Pre-Op 09/16/2024 9:45 AM EST 10 mL/hr New Bag 09/16/2024 8:39 AM EST 10 mL/hr sodium chloride 0.9 % flush peripheral sugey 3 mL 3 mL, IV Push, Q8H, First dose on Fri09/16/24 at 1400, Until Discontinued, Do not flush if lock, PICC, or central line not in place; IV infusing or unable to flush., Pre-OpIndications:Malfunction of arteriovenous dialysis fistula, sequela documented in this encounter Active and Recently Administered Medications Times are shown in EST. Scheduled Medication Order 09/14/2024 09/15/2024 09/16/2024 ceFAZolin in dextrose (Ancef) ivpb 2 g (COMPLETED) 2 g, IV Piggyback, PREOP, 1 dose, First dose on Fri09/16/24 at 0900, Administer 60 minutes prior to skin incision, Pre-Op 0947 (Given - Provid er: Sailaja Villa, MARY) sodium chloride 0.9 % flush peripheral sugey 3 mL 3 mL, IV Push, Q8H, First dose on Fri09/16/24 at 1400, Until Discontinued, Do not flush if lock, PICC, or central line not in place; IV infusing or unable to flush., Pre-Op Continuous Medication Order 09/14/2024 09/15/2024 09/16/2024 1/2 NSS infusion Intravenous, at 10 mL/hr, CONTINUOUS, Starting on Evangelina 09/16/24 at 0900, Until Evangelina 09/16/24 at 1521, Pre-Op 0839 (New Bag - Prov ider: CODI Cuevas)0945 (Continue from Pre-Op - Provider: Sailaja Villa CRNA)1021 (Paused - Provider: Sailaja Villa CRNA - Comment: Switch to gravity)1022 (Restarted - Provider: Sailaja Villa CRNA) PRN Medication Order 09/14/2024 09/15/2024 09/16/2024 Ioversol (Optiray 320) inj (CANCELED) ONCE PRN INTRA PROCEDURE, Starting on Evangelina 09/16/24 at 1021, Until Evangelina 09/16/24 at 1028, Intra-Op 1021 (Given - Provid er: Sterling Cates MD) Lidocaine 1 % (PF) inj (CANCELED) ONCE PRN INTRA PROCEDURE, Starting on Evangelina 09/16/24 at 1021, Until Evangelina 09/16/24 at 1028, Intra-Op 1021 (Given - Provid er: Sterling Cates MD) documented in this encounter Advance Directives Documents on File Type Date Recorded 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
--- OUTSIDE RECORDS SUMMARY | 2024-10-05 05:26 | External Medical Summary | Summary of Care ---
Author Name Unknown Organization [facility] Address [address] [place] [address] Phone [phone] Care Team Providers Care Bar Back Name Role Phone Luis Fernando Rojas MD Primary Care Provider [phone] Reason for Referral * Evaluate & Treat - Unlimited Visits (Within 10 days (routine)) - Authorized Specialty Diagnoses / Procedures Referred By Contact Referred To Contact Vascular Surgery / Cardiovascular Surgery Diagnoses Malfunction of arteriovenous dialysis fistula, subsequent encounter Sameer Hassan MD [address] [place] [address] Phone: tel:[phone] fax:[phone] Referral ID Status Reason Start Date Expiration Date Visits Requested Visits Authorized [id number] Authorized Specialty Services Required 09/09/2024 999 999 [...] Contact Info) Description 09/09/2024 Telephone [place]phrology[place] [address] [place] [address] Sameer Hassan MD [address] [place] [address] [address] Referral Requested by Specialist Allergies Active Allergy [...] hemoglobin A1c goal of less than 7.0% ([facility]) Use 4 times daily with insulin [...] 4 08/21/2024 8:06 AM EST 4 Active Application CraftTouch Verio In Vitro Strip (Glucose Blood) To test blood sugar 4 times daily. 400 Strip 1 04/22/2024 6:47 AM EDT 4 Active OneTouch Delica Lancets 33G To test blood sugar 4 times daily. 400 Each 1 04/22/2024 6:47 AM EDT 4 Active Application CraftTouch Verio w/Device Kit Use as directed. 1 [...] 1,000 mcgIndications:S/P gastric bypass 1000 mcg IM [id number] 10/15/2022 07/19/2025 Active vitamin b-12 (Cyanocobalamin) inj 1,000 mcgIndications:Morbid obesity with BMI of 40.0-44.9, adult (HCC),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 [id number] 10/17/2023 12/11/19 25 Active documented as of [...] 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 10/15/2022 [employer] OTHER*[id number] 01/01/2022 S/P gastric bypass 01/01/2022 [address] [...] 8:45 AM EDT): Gabapentin 600 mg at [facility] Assessment & Plan (05/07/2021 11:11 AM [...] Insulin long-term use 11/19/20182018 Overview (05/20/2019): Duplicate bed bug exterminator (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 [...] T-tube placement 04/16/2017 05/29/2017 [employer] Other*[id number] 04/13/2013 08/27/2016 Overview (04/13/2013): Study Title: Genomic Markers for Patients with Cardiovascular Disease Project # [id number] Complaints Coordinator: Siena Laws MD [phone] Hypertensive heart disease 03/25/2013 1 07/29/2016 Neuropathy, [...] CG/0.3 mL, 12 YRS AND ABOVE, IM (Last 2 Left-[employer]) 06/02/2024 HEPATITIS B VACCINE, RECOMB, 20 MCG/ML, ADULT (HEPLISAV-B) 09/05/2021,05/09/2021,04/04/2021,02/18 Hepatitis B, 20+ yrs 09/16/2018,04/14/2018,03/1104/11/2018 Pneumococcal Conjugate Vacci ne, 20-valent ([id number]) 06/22/2024,12/02/2023(Deferred: - pt states she's already received) [...] fistuagram on 09/[address] Cates at [facility] Case booked Please document pre-op instructions to be relayed to the patient * Telephone Encounter - Matteo Salcido OSA - 09/13/2024 9:47 AM EST Called and left message for patient to let her know we can schedule her fistulagram surgery in [place] with Dr. Cates on 09/16. * Telephone Encounter - Matteo Salcido OSA - 09/10/2024 2:[address] Cates, Would you be able to do this patient's fistulagram on 09/16 in [place] since it is closerfor her? * Telephone Encounter - Candi Torres LPN - 09/09/2024 1:58 PM EST Associated Diagnoses Malfunction of arteriovenous dialysis fistula, subsequent encounter [T82.590D] - Primary Last intervention was on 06/01/[address] Torrez Operation: Diagnostic fistulagram with peripheral venous angioplasty Findings: Patent arteriovenous anastomosis. Stenotic cephalic vein(s). Patent innominate subclavianand axillary veins I called Kimmy at [phone] and spoke with Hina and she states [...] 09/16/2024 9:51 AM EST Hospital Encounter OR [facility], Operating Room, [facility] - 4th Floor [address] [place] [phone] Sterling Cates MD [address], [place] [id number] 09/16/2024 9:51 AM EST - 09/16/2024 11:10 AM EST Surgery OR [facility], Operating Room, [facility] - 4th Floor 400 [facility] [place] [phone] Sterling Cates MD [address] [place] [address] AV FISTULOGRAM STENT & PERIPHERAL ANGIOPLASTY 09/21/2024 10:30 AM EST Home Visit [facility] at Home, [facility] [address] [place] [address] Heidi Garcia, RN [address] [place] [address] 09/23/2024 10:50 AM EST [address]med[address]acy, [address] [phone] [place] [address] [facility] [address] 09/30/2024 9:45 AM EDT Imaging Radiology [facility] 1st [facility] [place] [phone] 09/30/2024 11:00 AM EDT Office Visit Podiatry [facility] 132 [facility] [place] [phone] Calli Avila DPM [address] [facility] [place] [address] 10/14/2024 2:50 PM EDT Office Visit Vascular Surgery, [address] [place] [address] Sterling Cates MD 100 [facility] [place] [address] 11/30/2024 10:00 AM EDT Nurse Only Nutrition & Weight Management, [facility] 132 [facility] [place] [address] [facility] 132 [facility] [place] [address] 12/09/2024 12:57 PM EDT Hospital Encounter OR [facility], Operating Room, [facility] - 4th Floor [address] [place] [phone] Himanshu Rivero, DO [address] [place] [address] 12/09/2024 12:57 PM EDT - 12/09/2024 1:38 PM EDT Surgery OR [facility], Operating Room, [facility] - 4th Floor [address] [place] [address] Himanshu Rivero, DO [address] [place] [address] COLONOSCOPY FLEXIBLE PROXIMAL DIAGNOSTIC 12/21/2024 10:30 AM EDT Office Visit Gastroenterology, [facility] [address] [place] [address] Emi Queen CRNP [address] [place] [address] 03/10/2025 1:20 PM EDT [facility] [phone] Joanne Parks, PALinn [address] [place] [address] [place] [address] Scheduled Procedures Name Priority Associated Diagnoses Date/Ti [...] this encounter Medical Devices Implanted Type Area Lapeler Device Identifier Shelf Expiration Date Model / Serial / Lot Coil Vortex 35 Pltinm [id number] - [id number] Implanted:Qty: 1 on 11/27/2021 by Sterling Cates MD [place] [facility] Right: Upper Arm [employer] : NEURO INTR [id number] 08/15/2024 [id number] 1 / / [id number] Coil Vortex 35 Pltinm [id number] - [id number] Implanted:Qty: 1 on 11/27/2021 by Sterling Cates MD [place] [facility] [place] Right: Upper Arm [employer] : NEURO INTR [id number] 08/15/2024 [id number] 1 / / [id number] Coil Vortex 35 Pltinm [id number] - [id number] Implanted:Qty: 1 on 11/27/2021 by Sterling Cates MD at [place] [facility] [place] Right: Upper Arm [employer] : NEURO INTR [id number] 08/15/2024 [id number] 1 / / [id number] Coil Vortex 35 Pltinm [id number] - [id number] Implanted:Qty: 1 on 11/27/2021 by Sterling Cates MD at [place] [facility] [place] Right: Upper Arm [employer] : NEURO INTR [id number] 05/16/2024 [id number] / / [id number] Azur 35 Detachable 5mm 11cm - [id number] Implanted:Qty: 1 on 03/19/2022 by Jose Devine MD at [place] [facility] [place] Right: Wrist [employer] [id number] 10/18/2025 [id number] / / [id number] Azur 35 Detachable 5mm 11cm - [id number] Implanted:Qty: 1 on 03/19/2022 by Jose Devine MD at [place] [facility] [place] Right: Wrist [employer] [id number] 06/19/2026 [id number] / / [id number] Mesh Flat Sheet 10x14 [id number] - [id number] Implanted:Qty: 1 on 12/11/2022 by Eros Dash MD at [place] [facility] [place] N/A: Abdomen CR BARD : DAVOL [id number] 06/17/2027 [id number] / / [id number] documented as of this encounter Visit Diagnoses Diagnosis Marginal ulcer- Primary Gastrojejunal ulcer, unspecified as acute or chronic, without mention of hemorrhage, perforation, or obstruction ESRD (end stage renal disease) on dialysis ([facility]) End stage renal disease Hypertensive 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 congestive heart failure and stage 5 chronic kidney disease on chronic dialysis ([facility]) Acute posthemorrhagic anemia Type 2 diabetes mellitus 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 dialysis, with long-term current use of insulin ([facility]) Hypothyroidism (acquired) Unspecified hypothyroidism Malignant melanoma of right upper extremity ([facility]) Aortic atherosclerosis ([facility]) Atherosclerosis of aorta Diabetic polyneuropathy associated with type 2 diabetes mellitus ([facility]) Advanced care planning/counseling discussion- Primary Other specified counseling Hypertensive 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 congestive heart failure and stage 5 chronic kidney disease on chronic dialysis ([facility]) Presence of cardiac pacemaker Cardiac pacemaker in situ SSS (sick sinus syndrome) ([facility]) Sinoatrial node dysfunction MINISTERIO on CPAP Obstructive sleep apnea (adult) (pediatric) Hypothyroidism (acquired) Unspecified hypothyroidism Type 2 diabetes mellitus 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 dialysis, with long-term current use of insulin ([facility]) S/P gastric bypass Bariatric surgery status ESRD (end stage renal disease) on dialysis ([facility]) End stage renal disease Recurrent ventral incisional hernia Incisional hernia without mention of obstruction or gangrene NO SHOW/FAILED TO KEEP APPOINTMENT- Primary Chronic diastolic heart failure ([facility])- Primary Chronic diastolic heart failure HTN, goal below 140/90 Unspecified essential hypertension Type 2 diabetes mellitus with hemoglobin A1c goal of less than 7.0% ([facility]) Hypothyroidism (acquired) Unspecified hypothyroidism Dyslipidemia, goal LDL below 100 Other and unspecified hyperlipidemia Major depressive disorder, single episode, moderate ([facility]) Major depressive disorder, single episode, moderate 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, with long-term current use of insulin ([facility]) Hyperparathyroidism, secondary renal ([facility]) Secondary hyperparathyroidism (of renal origin) End stage renal disease on dialysis ([facility]) End stage renal disease MINISTERIO on CPAP [...] Documents on File Type Date Recorded 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
--- OUTSIDE RECORDS SUMMARY | 2024-10-05 05:26 | External Medical Summary | Summary of Care ---
Author Name Unknown Organization [facility] Address [address] [place] [address] Phone [phone] Care Team Providers Care Flotation Tank Operator Name Role Phone Luis Fernando Rojas MD Primary Care Provider [phone] Reason for Referral * Evaluate & Treat - Unlimited Visits (Within 10 days (routine)) - Authorized Specialty Diagnoses / Procedures Referred By Contact Referred To Contact Vascular Surgery / Cardiovascular Surgery Diagnoses Malfunction of arteriovenous dialysis fistula, subsequent encounter Sameer Hassan MD [address] [place] [address] Phone: tel:[phone] fax:[phone] Referral ID Status Reason Start Date Expiration Date Visits Requested Visits Authorized [id number] Authorized Specialty Services Required 09/09/2024 999 999 [...] 09/09/2024 Telephone NephrologyDella [address] [place] [address] Sameer Hassan MD [address] [place] [address] [address] Referral Requested by Specialist Allergies Active Allergy [...] of less than 7.0% ([facility]) Use 4 times daily with insulin 400 [...] 4 08/21/2024 8:06 AM EST 4 Active OMsignalTouch Verio In Vitro Strip (Glucose Blood) To test blood sugar 4 times daily. 400 Strip 1 04/22/2024 6:47 AM EDT 4 Active OneTouch Delica Lancets 33G To test blood sugar 4 times daily. 400 Each 1 04/22/2024 6:47 AM EDT 4 Active OMsignalTouch Verio w/Device Kit Use as directed. 1 [...] 1,000 mcgIndications:S/P gastric bypass 1000 mcg IM [id number] 10/15/2022 07/19/2025 Active vitamin b-12 (Cyanocobalamin) inj 1,000 mcgIndications:Morbid obesity with BMI of 40.0-44.9, adult (HCC),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 [id number] 10/17/2023 12/11/19 25 Active documented as of [...] 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 10/15/2022 MORFIN RESEARCH OTHER*[id number] 01/01/2022 S/P gastric bypass 01/01/[address] [...] 8:45 AM EDT): Gabapentin 600 mg at [facility] Assessment & Plan (05/07/2021 11:11 AM EDT): [...] Insulin long-term use 11/19/20182018 Overview (05/20/2019): Duplicate medical terminologist (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 insulin 11/19/2018 10/08/2022 Morbid [...] T-tube placement 04/16/2017 05/29/2017 [employer] Other*[id number] 04/13/2013 08/27/2016 Overview (04/13/2013): Study Title: Genomic Markers for Patients with Cardiovascular Disease Project # [id number] Inspector Bicycle: Siena Laws MD [phone] Hypertensive heart disease 03/25/2013 1 07/29/2016 Neuropathy, [...] CG/0.3 mL, 12 YRS AND ABOVE, IM ([employer]) 06/02/2024 HEPATITIS B VACCINE, RECOMB, 20 MCG/ML, ADULT (HEPLISAV-B) 09/05/2021,05/09/2021,04/04/2021,02/18 Hepatitis B, 20+ yrs 09/16/2018,04/14/2018,03/1104/11/2018 Pneumococcal Conjugate Vacci ne, 20-valent ([id number]) 06/22/2024,12/02/2023(Deferred: - pt states she's already received) [...] fistuagram on 09/[address] Cates at [facility] Case booked Please document pre-op instructions to be relayed to the patient * Telephone Encounter - Matteo Salcido OSA - 09/13/2024 9:47 AM EST Called and left message for patient to let her know we can schedule her fistulagram surgery in [place] with Dr. Cates on 09/16. * Telephone Encounter - Matteo Salcido OSA - 09/10/2024 2:[address] Cates, Would you be able to do this patient's fistulagram on 09/16 in [place] since it is closerfor her? * Telephone Encounter - Candi Torres LPN - 09/09/2024 1:58 PM EST Associated Diagnoses Malfunction of arteriovenous dialysis fistula, subsequent encounter [T82.590D] - Primary Last intervention was on 06/01/[address] Torrez Operation: Diagnostic fistulagram with peripheral venous angioplasty Findings: Patent arteriovenous anastomosis. Stenotic cephalic vein(s). Patent innominate subclavianand axillary veins I called Kimmy at [phone] and spoke with Hina and she states [...] 09/16/2024 9:51 AM EST Hospital Encounter OR [facility], Operating Room, [facility] - 4th Floor 400 [place] [phone] Sterling Cates MD [address] [place], [place] [address] 09/16/2024 9:51 AM EST - 09/16/2024 11:10 AM EST Surgery OR [facility], Operating Room, [facility] - 4th Floor 400 [facility] [place] [phone] Sterling Cates MD [address] [place] [address] AV FISTULOGRAM STENT & PERIPHERAL ANGIOPLASTY 09/21/2024 10:30 AM EST Home Visit [facility] at Home, [facility] [address] [place] [address] Heidi Garcia, RN [address] [place] [address] 09/23/2024 10:50 AM EST [address]med[address] Pharmacy, [address] [phone] [place] [phone] [facility] [address] 09/30/2024 9:45 AM EDT Imaging Radiology [facility] 1st [facility] [place] [phone] 09/30/2024 11:00 AM EDT Office Visit Podiatry [facility] 132 [facility] [place] [phone] Calli Avila DPM [address] [facility] [place] [address] 10/14/2024 2:50 PM EDT Office Visit Vascular Surgery, [address] [place] [address] Sterling Cates MD 100 [facility] [place] [address] 11/30/2024 10:00 AM EDT Nurse Only Nutrition & Weight Management, [facility] 132 [facility] [place] [address] [facility] 132 [facility] [place] [address] 12/09/2024 12:57 PM EDT Hospital Encounter OR [facility], Operating Room, [facility] - 4th Floor [address] [place] [phone] Himanshu Rivero, DO [address] [place] [address] 12/09/2024 12:57 PM EDT - 12/09/2024 1:38 PM EDT Surgery OR [facility], Operating Room, [facility] - 4th Floor [address] [place] [address] Himanshu Rivero, DO [address] [place] [address] COLONOSCOPY FLEXIBLE PROXIMAL DIAGNOSTIC 12/21/2024 10:30 AM EDT Office Visit Gastroenterology, [facility] [address] [place] [address] Emi Queen CRNP [address] [place] [address] 03/10/2025 1:20 PM EDT [facility] [address] Joanne Parks, PALinn [address] [place] [address] [place] [address] Scheduled Procedures Name Priority Associated Diagnoses Date/Ti [...] encounter Medical Devices Implanted Type Area Food Cart Attendant Device Identifier Shelf Expiration Date Model / Serial / Lot Coil Vortex 35 Pltinm [id number] - [id number] Implanted:Qty: 1 on 11/27/2021 by Sterling Cates MD [place] [facility] [place]: Upper Arm [employer] : NEURO INTR [id number] 08/15/2024 [id number] 1 / / [id number] Coil Vortex 35 Pltinm [id number] - [id number] Implanted:Qty: 1 on 11/27/2021 by Sterling Cates MD [place] [facility] Right: Upper Arm [employer] : NEURO INTR [id number] 08/15/2024 [id number] 1 / / [id number] Coil Vortex 35 Pltinm 620003 - [id number] Implanted:Qty: 1 on 11/27/2021 by Sterling Cates MD [place] [facility] Right: Upper Arm [employer] : NEURO INTR [id number] 08/15/2024 [id number] 1 / / [id number] Coil Vortex 35 Pltinm [id number] - [id number] Implanted:Qty: 1 on 11/27/2021 by Sterling Cates MD [place] [facility] Right: Upper Arm [employer] : NEURO INTR [id number] 05/16/2024 [id number] 1 / / [id number] Azur 35 Detachable 5mm 11cm - [id number] Implanted:Qty: 1 on 03/19/2022 by Jose Devine MD [place] [facility] Right: Wrist [employer] [id number] 10/18/2025 [id number] / / [id number] Azur 35 Detachable 5mm 11cm - [id number] Implanted:Qty: 1 on 03/19/2022 by Jose Devine MD [place] [facility] Right: Wrist [employer] [id number] 06/19/2026 [id number] / / [id number] Mesh Flat Sheet 10x14 [id number] - [id number] Implanted:Qty: 1 on 12/11/2022 by Eros Dash MD at [place] [facility] N/A: Abdomen CR BARD : DAVOL [id number] 06/17/2027 [id number] / / [id number] documented as of this encounter Visit Diagnoses Diagnosis Marginal ulcer- Primary Gastrojejunal ulcer, unspecified as acute or chronic, without mention of hemorrhage, perforation, or obstruction ESRD (end stage renal disease) on dialysis ([facility]) End stage renal disease Hypertensive 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 congestive heart failure and stage 5 chronic kidney disease on chronic dialysis ([facility]) Acute posthemorrhagic anemia Type 2 diabetes mellitus 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 dialysis, with long-term current use of insulin ([facility]) Hypothyroidism (acquired) Unspecified hypothyroidism Malignant melanoma of right upper extremity ([facility]) Aortic atherosclerosis ([facility]) Atherosclerosis of aorta Diabetic polyneuropathy associated with type 2 diabetes mellitus ([facility]) Advanced care planning/counseling discussion- Primary Other specified counseling Hypertensive 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 congestive heart failure and stage 5 chronic kidney disease on chronic dialysis ([facility]) Presence of cardiac pacemaker Cardiac pacemaker in situ SSS (sick sinus syndrome) ([facility]) Sinoatrial node dysfunction MINISTERIO on CPAP Obstructive sleep apnea (adult) (pediatric) Hypothyroidism (acquired) Unspecified hypothyroidism Type 2 diabetes mellitus 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 dialysis, with long-term current use of insulin ([facility]) S/P gastric bypass Bariatric surgery status ESRD (end stage renal disease) on dialysis ([facility]) End stage renal disease Recurrent ventral incisional hernia Incisional hernia without mention of obstruction or gangrene NO SHOW/FAILED TO KEEP APPOINTMENT- Primary Chronic diastolic heart failure ([facility])- Primary Chronic diastolic heart failure HTN, goal below 140/90 Unspecified essential hypertension Type 2 diabetes mellitus with hemoglobin A1c goal of less than 7.0% ([facility]) Hypothyroidism (acquired) Unspecified hypothyroidism Dyslipidemia, goal LDL below 100 Other and unspecified hyperlipidemia Major depressive disorder, single episode, moderate ([facility]) Major depressive disorder, single episode, moderate 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, with long-term current use of insulin ([facility]) Hyperparathyroidism, secondary renal ([facility]) Secondary hyperparathyroidism (of renal origin) End stage renal disease on dialysis ([facility]) End stage renal disease MINISTERIO on CPAP [...] Documents on File Type Date Recorded Patient Senior Lead Project Manager Saranya FIGUEROA 11/13/2020 POL[facility]RE[facility]AW ORDERS [...] Agents on File Name Relationship Healthcare Agent [facility] Communication Zhen Finley Spouse Health Care Agent Care Teams Flotation Tank Operator Relationship Specialty Start Date End Date Luis Fernando Rojas MD [facility] [place] [address] PCP - General Family Medicine 09/23/16 documented as of this encounter
--- OUTSIDE RECORDS SUMMARY | 2024-10-05 05:27 | External Medical Summary | Summary of Care ---
Author Name Unknown Organization [facility] Address [address] [place] [address] Phone [phone] Care Team Providers Care Fish Roe Technician Name Role Phone Luis Fernando Rojas MD Primary Care Provider Reason for Referral * Evaluate & Treat - Unlimited Visits (Within 10 days (routine)) - Authorized Specialty Diagnoses / Procedures Referred By Contact Referred To Contact Vascular Surgery / Cardiovascular Surgery Diagnoses Malfunction of arteriovenous dialysis fistula, subsequent encounter Sameer Hassan MD [address] [place] [address] Phone: tel:[phone] fax:[phone] Referral ID Status Reason Start Date Expiration Date Visits Requested Visits Authorized [id number] Authorized Specialty Services Required 09/09/2024 999 999 [...] 09/09/2024 Telephone [place] [address] [place] [address] Sameer Hassan MD [address] [place] [address] [address] Referral Requested by Specialist Allergies Active Allergy Reactions Criticality Noted Date Comments Salvador Inhibitors Other (Please comment),Cough High HyperKalemia documented as of this encounter (statuses as of 09/10/2024) Medications Melatonin 10 MG Tablet Take 12 [...] than 7.0% ([facility]) Use 4 times daily with insulin [...] 4 08/21/2024 8:06 AM EST 4 Active MoreboatsTouch Verio In Vitro Strip (Glucose Blood) To test blood sugar 4 times daily. 400 Strip 1 04/22/2024 6:47 AM EDT 4 Active OneTouch Delica Lancets 33G To test blood sugar 4 times daily. 400 Each 1 04/22/2024 6:47 AM EDT 4 Active MoreboatsTouch Verio w/Device Kit Use as directed. 1 [...] 1,000 mcgIndications:S/P gastric bypass 1000 mcg IM [id number] 10/15/2022 07/19/2025 Active vitamin b-12 (Cyanocobalamin) inj 1,000 mcgIndications:Morbid obesity with BMI of 40.0-44.9, adult (HCC),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 [id number] 10/17/2023 12/11/19 25 Active documented as of this encounter (statuses as of 09/10/2024) Active Problems Problem Noted Date Diagnosed Date [...] 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 10/15/2022 MORFIN RESEARCH OTHER*[id number] 01/01/2022 S/P gastric bypass 01/01/2022 [address] [...] AM EDT): Gabapentin [address] [facility] Assessment & Plan (05/07/2021 11:11 [...] as of this encounter (statuses as of 09/10/2024) Resolved Problems Problem Noted Date Diagnosed Date [...] Insulin long-term use 11/19/20182018 Overview (05/20/2019): Duplicate oil heaterman (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 insulin 11/19/2018 10/08/2022 Morbid [...] T-tube placement 04/16/2017 05/29/2017 [employer] Other*[id number] 04/13/2013 08/27/2016 Overview (04/13/2013): Study Title: Genomic Markers for Patients with Cardiovascular Disease Project # [id number] Steam Shovel Oiler: Siena Laws MD [phone] Hypertensive heart disease 03/25/2013 1 07/29/2016 Neuropathy, [...] as of this encounter (statuses as of 09/10/2024) Immunizations Name Administration Dates Next Due COVID-19 mRNA, LNP-s, No Pre serve, 2-Dose Series (Moderna) 04/09/2021,09/23/2020,08/19/2020 COVID-19, LNP-s, No Preserve , Espinoza-sucrose, Ages 12+ (Pfizer) 01/08/2022 COVID-19, MRNA-LNP, PF, 30 M CG/0.3 mL, 12 YRS AND ABOVE, IM ([employer]-ComirnatDevonWay) 06/02/2024 HEPATITIS B VACCINE, RECOMB, 20 MCG/ML, ADULT (HEPLISAV-B) 09/05/2021,05/09/2021,04/04/2021,02/18 Hepatitis B, 20+ yrs 09/16/2018,04/14/2018,03/1104/11/2018 Pneumococcal Conjugate Vacci ne, 20-valent ([id number]) 06/22/2024,12/02/2023(Deferred: - pt states she's already received) [...] do this patient's fistulagram on 09/16 in [place] since it is closerfor her? * Telephone Encounter - Candi Torres LPN - 09/09/2024 1:58 PM EST Associated Diagnoses Malfunction of arteriovenous dialysis fistula, subsequent encounter [T89.616D] - Primary Last intervention was on 06/01/[address] Torrez Operation: Diagnostic fistulagram with peripheral venous angioplasty Findings: Patent arteriovenous anastomosis. Stenotic cephalic vein(s). Patent innominate subclavianand axillary veins I called [facility] at [phone] and spoke with Hina and she states that the patient KT/V and Access flows are decreasing and they are requesting a fistulagram. Pt gets dialysis on // Secretaries, Please [...] Description 09/21/2024 10:30 AM EST Home Visit [facility], [facility] [address] [facility] [place] [address] Heidi Garcia, RN [address] [place] [address] 09/23/2024 10:50 AM EST Telemedicine Pharmacy, [facility] [address] [place] [phone] [facility] [address] [facility] [address] 09/30/2024 9:45 AM EDT Imaging Radiology [facility] [address] [facility] [place] [phone] 09/30/2024 11:00 AM EDT Office Visit Podiatry [facility] [address] [facility] [place] [phone] Calli Avila DPM [address] [facility] [place] [address] 10/14/2024 2:50 PM EDT Office Visit Vascular Surgery, [address] [place] [address] Sterling Cates MD [address] [place] [address] 11/30/2024 10:00 AM EDT Nurse Only Nutrition & Weight Management, [facility] [address] [facility] [place] [address] [facility] [address] [facility] [place] [address] 12/09/2024 12:57 PM EDT Hospital Encounter OR [facility], Operating Room, [facility] - 4th Floor [address] [place] [phone] Himanshu Rivero, DO [address] [place] [address] 12/09/2024 12:57 PM EDT - 12/09/2024 1:38 PM EDT Surgery OR [facility], Operating Room, [facility] - 4th Floor [address] [place] [phone] Himanshu Rivero, DO [address] [place] [address] COLONOSCOPY FLEXIBLE PROXIMAL DIAGNOSTIC 12/21/2024 10:30 AM EDT Office Visit Gastroenterology, [facility] [address] [place] [address] Emi Queen CRNP [address] [place] [address] 03/10/2025 1:20 PM EDT [facility] [address] [facility] [place] [phone] Joanne Parks PA-C [address] [place] [address] [place] [address] Scheduled Procedures Name Priority Associated Diagnoses Date/Ti [...] this encounter Medical Devices Implanted Type Area Warehouse Manager Device Identifier Shelf Expiration Date Model / Serial / Lot Coil Vortex 35 Pltinm [id number] - [id number] Implanted:Qty: 1 on 11/27/2021 by Sterling Cates MD at OR [facility] Right: Upper Arm [employer] : NEURO INTR [id number] 08/15/2024 [id number] / / [id number] Coil Vortex 35 Pltinm [id number] - [id number] Implanted:Qty: 1 on 11/27/2021 by Sterling Cates MD at OR [facility] [facility] Right: Upper Arm [employer] : NEURO INTR [id number] 08/15/2024 [id number] / / [id number] Coil Vortex 35 Pltinm [id number] - [id number] Implanted:Qty: 1 on 11/27/2021 by Sterling Cates MD at OR [facility] [place] Right: Upper Arm [employer] : NEURO INTR [id number] 08/15/2024 [id number] / / [id number] Coil Vortex 35 Pltinm [id number] - [id number] Implanted:Qty: 1 on 11/27/2021 by Sterling Cates MD at OR [facility] [place] Right: Upper Arm [employer] : NEURO INTR [id number] 05/16/2024 [id number] / / [id number] Azur 35 Detachable 5mm 11cm - [id number] Implanted:Qty: 1 on 03/19/2022 by Jose Devine MD at OR [facility] [place] Right: Wrist [employer] [id number] 10/18/2025 [id number] / / [id number] Azur 35 Detachable 5mm 11cm - [id number] Implanted:Qty: 1 on 03/19/2022 by Jose Devine MD at OR [facility] Right: Wrist [employer] [id number] 06/19/2026 [id number] / / [id number] Mesh Flat Sheet 10x14 [id number] - [id number] Implanted:Qty: 1 on 12/11/2022 by Eros Dash MD at OR [facility] [place] N/A: Abdomen CR BARD : DAVOL [id number] 06/17/2027 [id number] / / [id number] documented as of this encounter Visit Diagnoses Diagnosis Marginal ulcer- Primary Gastrojejunal ulcer, unspecified as acute or chronic, without mention of hemorrhage, perforation, or obstruction ESRD (end stage renal disease) on dialysis ([facility]) End stage renal disease Hypertensive 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 congestive heart failure and stage 5 chronic kidney disease on chronic dialysis ([facility]) Acute posthemorrhagic anemia Type 2 diabetes mellitus 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 dialysis, with long-term current use of insulin ([facility]) Hypothyroidism (acquired) Unspecified hypothyroidism Malignant melanoma of right upper extremity ([facility]) Aortic atherosclerosis ([facility]) Atherosclerosis of aorta Diabetic polyneuropathy associated with type 2 diabetes mellitus ([facility]) Advanced care planning/counseling discussion- Primary Other specified counseling Hypertensive 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 congestive heart failure and stage 5 chronic kidney disease on chronic dialysis ([facility]) Presence of cardiac pacemaker Cardiac pacemaker [...] [facility]) Hyperparathyroidism, secondary renal (HCC) Secondary hyperparathyroidism (of renal origin) End stage renal disease on dialysis (HCC) End stage renal disease MINISTERIO on CPAP Obstructive sleep apnea (adult) (pediatric) Diarrhea, unspecified type Malfunction of arteriovenous dialysis fistula, subsequent encounter- Primary History of colonic polyps Personal history of colonic polyps Diarrhea documented in this encounter Advance Directives Documents on File Type Date Recorded Patient Shuttle Car Operator Saranya FIGUEROA 11/13/2020 [facility] ORDERS FOR [...] Agents on File Name Relationship Healthcare Agent [facility] p Communication Zhen Finley Spouse Health Care Agent Care Teams Fish Roe Technician Relationship Specialty Start Date End Date Luis Fernando Rojas MD [address] [address] PCP - General Family Medicine 09/23/16 documented as of this encounter
--- OUTSIDE RECORDS SUMMARY | 2024-10-05 05:27 | External Medical Summary | Summary of Care ---
Author Name Unknown Organization [facility] Address [address] [place] [address] Phone [phone] Care Team Providers Care Musical Instrument Maker Name Role Phone Luis Fernando Rojas MD Primary Care Provider Reason for Visit * Reason Onset Date Comments TRIAGE 09/10/2024 Encounter Details Date Type Department Care Team (Late st Contact Info) Description 09/10/2024 Telephone Vascular Surg [facility] [address], [place] [phone] Abundio Bird CRNP [address] [place] [address] TRIAGE Allergies Active Allergy Reactions Criticality Noted Date Comments Salvador Inhibitors Other (Please comment),Cough High HyperKalemia documented as of this encounter (statuses as of 09/11/2024) Medications Melatonin 10 MG Tablet Take 12 [...] 1 04/22/2024 6:47 AM EDT 4 Active EXPOTouch Verio w/Device Kit Use as directed. 1 [...] 1,000 mcgIndications:S/P gastric bypass 1000 mcg IM [id number] 10/15/2022 07/19/2025 Active vitamin b-12 (Cyanocobalamin) inj 1,000 mcgIndications:Morbid obesity with BMI of 40.0-44.9, adult (HCC),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 [id number] 10/17/2023 12/11/19 25 Active documented as of this encounter (statuses as of 09/11/2024) Active Problems Problem Noted Date Diagnosed Date [...] 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 10/15/2022 MORFIN RESEARCH OTHER*[id number] 01/01/2022 S/P gastric bypass 01/01/2022 [address] [...] 8:45 AM EDT): Gabapentin 600 mg at [facility] Assessment & Plan (05/07/2021 11:11 AM EDT): [...] as of this encounter (statuses as of 09/11/2024) Resolved Problems Problem Noted Date Diagnosed Date [...] long-term use 11/19/20182018 Overview (05/20/2019): Duplicate terminal manager (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 insulin [...] T-tube placement 04/16/2017 05/29/2017 Genomics [employer] Other*[id number] 04/13/2013 08/27/2016 Overview (04/13/2013): Study Title: Genomic Markers for Patients with Cardiovascular Disease Project # [id number] Pit Tanner: Siena Lwas MD [phone] Hypertensive heart disease 03/25/2013 1 07/29/2016 Neuropathy, [...] as of this encounter (statuses as of 09/11/2024) Immunizations Name Administration Dates Next Due COVID-19 mRNA, LNP-s, No Pre serve, 2-Dose Series (Moderna) 04/09/2021,09/23/2020,08/19/2020 COVID-19, LNP-s, No Preserve , Espinoza-sucrose, Ages 12+ (Pfizer) 01/08/2022 COVID-19, MRNA-LNP, PF, 30 M CG/0.3 mL, 12 YRS AND ABOVE, IM (PFIZER-Comirnaty) 06/02/2024 HEPATITIS B VACCINE, RECOMB, 20 MCG/ML, ADULT (HEPLISAV-B) 09/05/2021,05/09/2021,04/04/2021,02/18 Hepatitis B, 20+ yrs 09/16/2018,04/14/2018,03/1104/11/2018 Pneumococcal Conjugate Vacci ne, 20-valent ([id number]) 06/22/2024,12/02/2023(Deferred: - pt states she's already received) [...] Encounter - Matteo Salcido OSA - 09/10/2024 4:43 PM EST There was a separate TE about this I spoke to patient and I reached out to Dr. Cates to see if he is able to do pt's fistulagram in [place] on and I let her know I will call her back to confirm. * Telephone Encounter - Abundio Bird CRNP - 09/10/2024 4:38 PM EST Associated Diagnoses Malfunction of arteriovenous dialysis fistula, subsequent encounter [T82.328D] - Primary Comments Fistulogram needed. ____ Appears she was scheduled for a clinic visit in [place] on 10/14/24 for this. Should have clinic visit cancelled and she should be scheduled for a fistulagram. NPO after MN. Morning meds with a SIP of water EXCEPT her lispro insulin. documented in this encounter Plan of Treatment Upcoming Encounters Date Type Department Care Team (Late st Contact Info) Description 09/21/2024 10:30 AM EST Home Visit [facility] [address] [place] [address] Heidi Garcia RN [address] [place] [address] 09/23/2024 10:50 AM EST Telemedicine Pharmacy, [facility] [address] [facility] [phone] [facility] [address] [place] [address] 09/30/2024 9:45 AM EDT Imaging Radiology [address] [place] [phone] 09/30/2024 11:00 AM EDT Office Visit Podiatry [facility] [address] [place] [phone] Calli Avila DPM [address] [place] [address] 10/14/2024 2:50 PM EDT Office Visit Vascular Surgery, [address] [place] [address] Sterling Cates MD [address] [facility] [place] [address] 11/30/2024 10:00 AM EDT Nurse Only Nutrition & Weight Management, [facility] [address] [facility] [place] [address] [facility], Nurse Gi Nutrition [facility] [address] [facility] [place] [address] 12/09/2024 12:57 PM EDT Hospital Encounter OR [facility], Operating Room, [facility] - 4th Floor [address] [facility] [place] [phone] Himanshu Rivero, DO [address] [facility] [place] [address] 12/09/2024 12:57 PM EDT - 12/09/2024 1:38 PM EDT Surgery OR [facility], Operating Room, [facility] - 4th Floor [address] [place] [phone] Himanshu Rivero, [address] [place] [address] COLONOSCOPY FLEXIBLE PROXIMAL DIAGNOSTIC 12/21/2024 10:30 AM EDT Office Visit Gastroenterology, [facility] [address] [facility] [place] [address] Emi Queen CRNP [address] [place] [address] 03/10/2025 1:20 PM EDT Office [facility] [place] [facility] [address] [facility] [place] [phone] Joanne Parks PA-C [address] [place] [address] [place] [address] Scheduled Procedures Name Priority Associated Diagnoses Date/Ti [...] encounter Medical Devices Implanted Type Area Land Inspector Device Identifier Shelf Expiration Date Model / Serial / Lot Coil Vortex 35 Pltinm [id number] - [id number] Implanted:Qty: 1 on 11/27/2021 by Sterling Cates MD [place] [facility] [place]: Upper Arm [employer] : NEURO INTR [id number] 08/15/2024 [id number] / / [id number] Coil Vortex 35 Pltinm [id number] - [id number] Implanted:Qty: 1 on 11/27/2021 by Sterling Cates MD [place] [facility] [place]: Upper Arm [employer] : NEURO INTR [id number] 08/15/2024 [id number] / / [id number] Coil Vortex 35 Pltinm [id number] - [id number] Implanted:Qty: 1 on 11/27/2021 by Sterling Cates MD [place] [facility] [place]: Upper Arm [employer] : NEURO INTR [id number] 08/15/2024 [id number] / / [id number] Coil Vortex 35 Pltinm [id number] - [id number] Implanted:Qty: 1 on 11/27/2021 by Sterling Cates MD [place] [facility] [place]: Upper Arm [employer] : NEURO INTR [id number] 05/16/2024 [id number] / [id number] Azur 35 Detachable 5mm 11cm - [id number] Implanted:Qty: 1 on 03/19/2022 by Jose Devine MD [place] [facility] [place] Right: Wrist [employer] [id number] 10/18/2025 [id number] / / [id number] Azur 35 Detachable 5mm 11cm - [id number] Implanted:Qty: 1 on 03/19/2022 by Jose Devine MD [place] [facility] [place]: Wrist [employer] [id number] 06/19/2026 [id number] / / [id number] Mesh Flat Sheet 10x14 [id number] - [id number] Implanted:Qty: 1 on 12/11/2022 by Eros Dash MD [place] [facility] [place]/A: Abdomen CR BARD : DAVOL [id number] 06/17/2027 [id number] / / [id number] documented as of this encounter Advance Directives Documents on File Type Date Recorded Patient Targeting Acquisition Officer Expl anation POLST 11/13/2020 POLST PENNSYLVA VALERIA [...] Finley Spouse Health Care Agent Care Teams Musical Instrument Maker Relationship Specialty Start Date End Date Luis Fernando Rojas MD [address] [place] [address] PCP - General Family Medicine 09/23/16 documented as of this encounter
--- OUTSIDE RECORDS SUMMARY | 2024-10-05 05:27 | External Medical Summary | Summary of Care ---
Author Name Unknown Organization [facility] Address [address] [place] [address] Phone [phone] Care Team Providers Care Seo Marketing Specialist Name Role Phone Luis Fernando Rojas MD Primary Care Provider [phone] Reason for Referral * Evaluate & Treat - Unlimited Visits (Within 10 days (routine)) - Authorized Specialty Diagnoses / Procedures Referred By Contact Referred To Contact Vascular Surgery / Cardiovascular Surgery Diagnoses Malfunction of arteriovenous dialysis fistula, subsequent encounter Sameer Hassan MD [address] [place] [address] Phone: tel:[phone] Referral ID Status Reason Start Date Expiration Date Visits Requested Visits Authorized [id number] Authorized Specialty Services Required 09/09/2024 999 999 [...] 09/09/2024 Telephone [place] [address] [place] [address] Sameer Hassan MD [address] [place] [address] Referral Requested by Specialist Allergies Active Allergy Reactions Criticality Noted Date Comments Salvador Inhibitors Other (Please comment),Cough High HyperKalemia documented as of this encounter (statuses as of 09/09/2024) Medications Melatonin 10 MG Tablet Take 12 [...] A1c goal of less than 7.0% ([facility]) Use 4 times daily with [...] 4 08/21/2024 8:06 AM EST 4 Active OctopusappTouch Verio In Vitro Strip (Glucose Blood) To test blood sugar 4 times daily. 400 Strip 1 04/22/2024 6:47 AM EDT 4 Active OneTouch Delica Lancets 33G To test blood sugar 4 times daily. 400 Each 1 04/22/2024 6:47 AM EDT 4 Active OctopusappTouch Verio w/Device Kit Use as directed. 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 Magallanes. Renae-W-Brinaa from 07-25. Has dialysis catheter in the [...] 8:45 AM EDT): Gabapentin 600 mg at [facility] Assessment & Plan (05/07/2021 11:11 [...] as of this encounter (statuses as of 09/09/2024) Resolved Problems Problem Noted Date Diagnosed Date [...] long-term use 11/19/20182018 Overview (05/20/2019): Duplicate terminal carman (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 insulin 11/19/2018 10/08/2022 Morbid [...] T-tube placement 04/16/2017 05/29/2017 [employer] Other*[id number] 04/13/2013 08/27/2016 Overview (04/13/2013): Study Title: Genomic Markers for Patients with Cardiovascular Disease Project # [id number] Chemistry Research Assistant: Siena Laws MD [phone] Hypertensive heart disease 03/25/2013 1 07/29/2016 Neuropathy, [...] as of this encounter (statuses as of 09/09/2024) Immunizations Name Administration Dates Next Due COVID-19 mRNA, LNP-s, No Pre serve, 2-Dose Series (Moderna) 04/09/2021,09/23/2020,08/19/2020 COVID-19, LNP-s, No Preserve , Espinoza-sucrose, Ages 12+ (Pfizer) 01/08/2022 COVID-19, MRNA-LNP, PF, 30 M CG/0.3 mL, 12 YRS AND ABOVE, IM (ShapeUp-ComirnatBelanit) 06/02/2024 HEPATITIS B VACCINE, RECOMB, 20 MCG/ML, ADULT (HEPLISAV-B) 09/05/2021,05/09/2021,04/04/2021,02/18 Hepatitis B, 20+ yrs 09/16/2018,04/14/2018,03/1104/11/2018 Pneumococcal Conjugate Vacci ne, 20-valent ([id number]) 06/22/2024,12/02/2023(Deferred: - pt states she's already received) [...] subclavianand axillary veins I called Kimmy at [phone] and spoke with Hina and she states [...] Description 09/21/2024 10:30 AM EST Home Visit [facility], [facility] [address] [facility] [place] [address] Heidi Garcia RN [address] [facility] [place] [address] 09/23/2024 10:50 AM EST Telemedicine Pharmacy, [place] [facility] [address] [place] [phone] [place] [address] [place] [address] 09/30/2024 11:00 AM EDT Office Visit Podiatry [facility] [address] [place] [phone] Calli Avila DPM [address] [place] [address] 11/30/2024 10:00 AM EDT Nurse Only Nutrition & Weight Management, [facility] [address] [place] [address] [place], Nurse Gi Nutrition [facility] [address] [place] [address] 12/09/2024 12:57 PM EDT Hospital Encounter OR GL, Operating Room, [facility] - 4th Floor [address] [place] [phone] Himanshu Rivero, DO [address] [place] [address] 12/09/2024 12:57 PM EDT - 12/09/2024 1:38 PM EDT Surgery OR [facility], Operating Room, [facility] - 4th Floor [address] [place] [phone] Himanshu Rivero, DO [address] [place] [address] COLONOSCOPY FLEXIBLE PROXIMAL DIAGNOSTIC 12/21/2024 10:30 AM EDT Office Visit Gastroenterology, [facility] [address] [place] [address] Emi Queen CRNP [address] [place] [address] 03/10/2025 1:20 PM EDT Office Visit Dermatology, [place] [address] [place] [phone] Joanne Parks PA-C [address] [place] [address] [place] [address] Scheduled Procedures Name Priority Associated Diagnoses Date/Ti [...] this encounter Medical Devices Implanted Type Area Shoveler Device Identifier Shelf Expiration Date Model / Serial / Lot Coil Vortex 35 Pltinm [id number] - [id number] Implanted:Qty: 1 on 11/27/2021 by Sterling Cates MD at OR [facility] Right: Upper Arm [employer] : NEURO INTR [id number] 08/15/2024 [id number] Coil Vortex 35 Pltinm [id number] - [id number] Implanted:Qty: 1 on 11/27/2021 by Sterling Cates MD at OR [facility] Right: Upper Arm [employer] : NEURO INTR [id number] 08/15/2024 [id number] / [id number] Coil Vortex 35 Pltinm [id number] - [id number] Implanted:Qty: 1 on 11/27/2021 by Sterling Cates MD at OR [facility] Right: Upper Arm [employer] : NEURO INTR [id number] 08/15/2024 [id number] / / [id number] Coil Vortex 35 Pltinm [id number] - [id number] Implanted:Qty: 1 on 11/27/2021 by Sterling Cates MD at OR [facility] Right: Upper Arm [employer] : NEURO INTR [id number] 05/16/2024 [id number] / / [id number] Azur 35 Detachable 5mm 11cm - [id number] Implanted:Qty: 1 on 03/19/2022 by Jose Devine MD at OR [facility] Right: Wrist [employer] [id number] 10/18/2025 [id number] / / [id number] Azur 35 Detachable 5mm 11cm - [id number] Implanted:Qty: 1 on 03/19/2022 by Jose Devine MD at OR [facility] Right: Wrist [employer] [id number] 06/19/2026 [id number] / / [id number] Mesh Flat Sheet 10x14 [id number] - [id number] Implanted:Qty: 1 on 12/11/2022 by Eros Dash MD at OR [facility] N/A: Abdomen CR BARD : DAVOL [id number] 06/17/2027 [id number] / / [id number] documented as of this encounter Visit Diagnoses [...] with long-term current use of insulin ([facility]) S/P gastric bypass Bariatric surgery status ESRD (end stage renal disease) on dialysis ([facility]) End stage renal disease Recurrent ventral incisional hernia Incisional hernia without mention of obstruction or gangrene NO SHOW/FAILED TO KEEP APPOINTMENT- Primary Chronic diastolic heart failure ([facility])- Primary Chronic diastolic heart failure HTN, goal below 140/90 Unspecified essential hypertension Type 2 diabetes mellitus with hemoglobin A1c goal of less than 7.0% ([facility]) Hypothyroidism (acquired) Unspecified hypothyroidism Dyslipidemia, goal LDL below 100 Other and unspecified hyperlipidemia Major depressive disorder, single episode, moderate ([facility]) Major depressive disorder, single episode, moderate 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, with long-term current use of insulin ([facility]) Hyperparathyroidism, secondary renal ([facility]) Secondary hyperparathyroidism (of renal origin) End stage renal disease on dialysis ([facility]) End stage renal disease MINISTERIO on CPAP Obstructive sleep apnea (adult) (pediatric) Diarrhea, unspecified type Malfunction of arteriovenous dialysis fistula, subsequent encounter- Primary History of colonic polyps Personal history of colonic polyps Diarrhea documented in this encounter Advance Directives Documents on File Type Date Recorded Patient Cullet Crusher Expl salbadorgeneva HENRY 11/13/2020 HENRY SHAW ORDERS FOR LIFE-SUSTAINING [...] Agents on File Name Relationship Healthcare Agent [facility] Communication Zhen Finley Spouse Health Care Agent Care Teams Seo Marketing Specialist Relationship Specialty Start Date End Date Luis Fernando Rojas MD [address] [address] PCP - General Family Medicine 09/23/16 documented as of this encounter
--- OUTSIDE RECORDS SUMMARY | 2024-10-05 05:27 | External Medical Summary | Summary of Care ---
Author Name Unknown Organization [facility] Address [address] [place] [address] Phone [phone] Care Team Providers Care Telecommunications Officer Name Role Phone Luis Fernando Rojas MD Primary Care Provider [phone] Reason for Visit * Reason Onset Date Comments TRIAGE 09/10/2024 Encounter Details Date Type Department Care Team (Late st Contact Info) Description 09/10/2024 Telephone Vascular Surg [facility] [address] [place], [place] [phone] Abundio Bird CRNP [address] [place] [address] TRIAGE Allergies Active Allergy Reactions [...] of less than 7.0% ([facility]) Use 4 times daily with [...] 1 04/22/2024 6:47 AM EDT 4 Active EcopolTouch Verio w/Device Kit Use as directed. 1 [...] 1,000 mcgIndications:S/P gastric bypass 1000 mcg IM [id number] 10/15/2022 07/19/2025 Active vitamin b-12 (Cyanocobalamin) inj 1,000 mcgIndications:Morbid obesity with BMI of 40.0-44.9, adult (HCC),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 [id number] 10/17/2023 12/11/19 25 Active documented as of [...] 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 10/15/2022 [facility]EARCH OTHER*[id number] 01/01/2022 S/P gastric bypass 01/01/2022 Dialysis AV [...] Insulin long-term use 11/19/20182018 Overview (05/20/2019): Duplicate composite bond worker (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 insulin 11/19/2018 10/08/2022 [...] T-tube placement 04/16/2017 05/29/2017 [employer] Other*[id number] 04/13/2013 08/27/2016 Overview (04/13/2013): Study Title: Genomic Markers for Patients with Cardiovascular Disease Project # [id number] Sectionizer: Siena Laws MD [phone] Hypertensive heart disease 03/25/2013 1 07/29/2016 Neuropathy, [...] yrs 09/16/2018,04/14/2018,03/1104/11/2018 Pneumococcal Conjugate Vacci ne, 20-valent ([id number]) 06/22/2024,12/02/2023(Deferred: - pt states she's already received) [...] is able to do pt's fistulagram in [place] on and I let her know I will call her back to confirm. * Telephone Encounter - Abundio Bird CRNP - 09/10/2024 4:38 PM EST Associated Diagnoses Malfunction of arteriovenous dialysis fistula, subsequent encounter [T82.009D] - Primary Comments Fistulogram needed. ____ Appears she was scheduled for a clinic visit in [place] on 10/14/24 for this. Should have clinic visit cancelled and she should be scheduled for a fistulagram. NPO after MN. Morning meds with a SIP of water EXCEPT her lispro insulin. documented in this encounter Plan of Treatment Upcoming Encounters Date Type Department Care Team (Late st Contact Info) Description 09/21/2024 10:30 AM EST Home Visit [facility] [address] [place] [address] Heidi Garcia RN [address] [place] [address] 09/23/2024 10:50 AM EST [facility]medicine Pharmacy, [facility] [phone] [facility] [address] [place] [address] 09/30/2024 9:45 AM EDT Imaging Radiology [address] [place] [phone] 09/30/2024 11:00 AM EDT Office Visit Podiatry [facility] [address] [place] [phone] Calli Avila DPM [address] [place] [address] 10/14/2024 2:50 PM EDT Office Visit Vascular Surgery, [address] [place] [address] Sterling Cates MD [address] [facility] [place] [address] 11/30/2024 10:00 AM EDT Nurse Only Nutrition & Weight Management, [facility] [address] [facility] [place] [address] [facility], Nurse Gi Nutrition [facility] [address] [facility] [place] [address] 12/09/2024 12:57 PM EDT Hospital Encounter OR GL, Operating Room, [facility] - 4th Floor [address] [facility] [place] [phone] Himanshu Rivero, DO [address] [facility] [place] [address] 12/09/2024 12:57 PM EDT - 12/09/2024 1:38 PM EDT Surgery OR [facility], Operating Room, [facility] - 4th Floor [address] [place] [address] Himanshu Rivero, [address] [place] [address] COLONOSCOPY FLEXIBLE PROXIMAL DIAGNOSTIC 12/21/2024 10:30 AM EDT Office Visit Gastroenterology, [facility] [address] [facility] [place] [address] Emi Queen CRNP [address] [place] [address] 03/10/2025 1:20 PM EDT [facility] [address] [facility] [place] [phone] Joanne Parks PA-C [address] [place] [address] [place] [address] Scheduled Procedures Name Priority Associated Diagnoses Date/Ti [...] this encounter Medical Devices Implanted Type Area Emergency Room Clerk Device Identifier Shelf Expiration Date Model / Serial / Lot Coil Vortex 35 Pltinm [id number] - [id number] Implanted:Qty: 1 on 11/27/2021 by Sterling Cates MD at [place] [facility] Right: Upper Arm [employer] : NEURO INTR [id number] 08/15/2024 [id number] / / [id number] Coil Vortex 35 Pltinm [id number] - [id number] Implanted:Qty: 1 on 11/27/2021 by Sterling Cates MD at OR [facility] [place] Right: Upper Arm [employer] : NEURO INTR [id number] 08/15/2024 [id number] / / [id number] Coil Vortex 35 Pltinm [id number] - [id number] Implanted:Qty: 1 on 11/27/2021 by Sterling Cates MD at OR [facility] [place] Right: Upper Arm [employer] : NEURO INTR [id number] 08/15/2024 [id number] / / [id number] Coil Vortex 35 Pltinm [id number] - [id number] Implanted:Qty: 1 on 11/27/2021 by Sterling Cates MD at OR [facility] [place] Right: Upper Arm [employer] : NEURO INTR [id number] 05/16/2024 [id number] / [id number] Azur 35 Detachable 5mm 11cm - [id number] Implanted:Qty: 1 on 03/19/2022 by Jose Devine MD at OR [facility] [place] Right: Wrist [employer] [id number] 10/18/2025 [id number] / / [id number] Azur 35 Detachable 5mm 11cm - [id number] Implanted:Qty: 1 on 03/19/2022 by Jose Devine MD at OR [facility] [place] Right: Wrist [employer] [id number] 06/19/2026 [id number] / / [id number] Mesh Flat Sheet 10x14 [id number] - [id number] Implanted:Qty: 1 on 12/11/2022 by Eros Dash MD at [place] [facility] N/A: Abdomen CR BARD : DAVOL [id number] 06/17/2027 [id number] / / [id number] documented as of this encounter Advance Directives Documents on File Type Date Recorded Patient Travel Ot Expl anation POLST 11/13/2020 POLST [place] [...] Finley Spouse Health Care Agent Care Teams Telecommunications Officer Relationship Specialty Start Date End Date Luis Fernando Rojas MD [address] [place] [address] PCP - General Family Medicine 09/23/16 documented as of this encounter
--- OUTSIDE RECORDS SUMMARY | 2024-10-05 05:27 | External Medical Summary | Summary of Care ---
Author Name Unknown Organization [facility] Address [address] [place] [address] Phone [phone] Care Team Providers Care Machine Maintenance Repairer Name Role Phone Luis Fernando Rojas MD Primary Care Provider [phone] Reason for Referral * Evaluate & Treat - Unlimited Visits (Within 10 days (routine)) - Authorized Specialty Diagnoses / Procedures Referred By Contact Referred To Contact Vascular Surgery / Cardiovascular Surgery Diagnoses Malfunction of arteriovenous dialysis fistula, subsequent encounter Sameer Hassan MD [address] [place] [address] Phone: tel:[phone] fax: Referral ID Status Reason Start Date Expiration Date Visits Requested Visits Authorized [id number] Authorized Specialty Services Required 09/09/2024 999 999 [...] 09/09/2024 Telephone [facility] [address] [place] [address] Sameer Hassan MD [address] [place] [address] [address] Referral Requested by Specialist Allergies Active Allergy [...] goal of less than 7.0% ([facility]) Use 4 times daily with insulin [...] 4 08/21/2024 8:06 AM EST 4 Active Wangsu TechnologyTouch Verio In Vitro Strip (Glucose Blood) To test blood sugar 4 times daily. 400 Strip 1 04/22/2024 6:47 AM EDT 4 Active OneTouch Delica Lancets 33G To test blood sugar 4 times daily. 400 Each 1 04/22/2024 6:47 AM EDT 4 Active [employer] TechnologyTouch Verio w/Device Kit Use as directed. 1 [...] 1,000 mcgIndications:S/P gastric bypass 1000 mcg IM [id number] 10/15/2022 07/19/2025 Active vitamin b-12 (Cyanocobalamin) inj 1,000 mcgIndications:Morbid obesity with BMI of 40.0-44.9, adult (HCC),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 [id number] 10/17/2023 12/11/19 25 Active documented as of [...] 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 10/15/2022 [facility] OTHER*[id number] 01/01/2022 S/P gastric bypass 01/01/[address] [...] 8:45 AM EDT): Gabapentin 600 mg at [facility] Assessment & Plan (05/07/2021 11:11 AM [...] Insulin long-term use 11/19/20182018 Overview (05/20/2019): 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) use [...] T-tube placement 04/16/2017 05/29/2017 [employer] Other*[id number] 04/13/2013 08/27/2016 Overview (04/13/2013): Study Title: Genomic Markers for Patients with Cardiovascular Disease Project # [id number] Operations Liaison: Siena Laws MD [phone] Hypertensive heart disease 03/25/2013 1 07/29/2016 Neuropathy, [...] CG/0.3 mL, 12 YRS AND ABOVE, IM ([employer] [facility]) 06/02/2024 HEPATITIS B VACCINE, RECOMB, 20 MCG/ML, ADULT (HEPLISAV-B) 09/05/2021,05/09/2021,04/04/2021,02/18 Hepatitis B, 20+ yrs 09/16/2018,04/14/2018,03/1104/11/2018 Pneumococcal Conjugate Vacci ne, 20-valent ([id number]) 06/22/2024,12/02/2023(Deferred: - pt states she's already received) [...] fistuagram on 09/[address] Cates at [facility] Case booked Please document pre-op instructions to be relayed to the patient * Telephone Encounter - Matteo Salcido OSA - 09/13/2024 9:47 AM EST Called and left message for patient to let her know we can schedule her fistulagram surgery in [place] with Dr. Cates on 09/16. * Telephone Encounter - Matteo Salcido OSA - 09/10/2024 2:[address] Cates, Would you be able to do this patient's fistulagram on 09/16 in [place] since it is closerfor her? * Telephone Encounter - Candi Torres LPN - 09/09/2024 1:58 PM EST Associated Diagnoses Malfunction of arteriovenous dialysis fistula, subsequent encounter [T82.590D] - Primary Last intervention was on 06/01/[address] Torrez Operation: Diagnostic fistulagram with peripheral venous angioplasty Findings: Patent arteriovenous anastomosis. Stenotic cephalic vein(s). Patent innominate subclavianand axillary veins I called Kimmy at [phone] and spoke with Hina and she states [...] 09/16/2024 9:51 AM EST Hospital Encounter OR [facility], Operating Room, [facility] - 4th Floor [address] [facility] [place] [phone] Sterling Cates MD [address], [place] [id number] 09/16/2024 9:51 AM EST - 09/16/2024 11:10 AM EST Surgery OR [facility], Operating Room, [facility] - 4th Floor [address] [place] [phone] Sterling Cates MD [address] [place] [address] AV FISTULOGRAM STENT & PERIPHERAL ANGIOPLASTY 09/21/2024 10:30 AM EST Home Visit [facility], [facility] [address] [place] [address] Heidi Garcia, RN [address] [place] [address] 09/23/2024 10:50 AM EST [address]med[address]acy, [address] [phone] [place] [address] [facility] [address] 09/30/2024 9:45 AM EDT Imaging Radiology [facility] [place] [phone] 09/30/2024 11:00 AM EDT Office Visit Podiatry [facility] [address] [facility] [place] [phone] Calli Avila DPM [address] [facility] [place] [address] 10/14/2024 2:50 PM EDT Office Visit Vascular Surgery, [address] [place] [address] Sterling Cates MD 100 [facility] [place] [address] 11/30/2024 10:00 AM EDT Nurse Only Nutrition & Weight Management, [facility] [address] [facility] [place] [address] [facility] 132 [facility] [place] [address] 12/09/2024 12:57 PM EDT Hospital Encounter OR [facility], Operating Room, [facility] - 4th Floor [address] [place] [phone] Himanshu Rivero, DO [address] [place] [address] 12/09/2024 12:57 PM EDT - 12/09/2024 1:38 PM EDT Surgery OR [facility], Operating Room, [facility] - 4th Floor [address] [place] [address] Himanshu Rivero, DO [address] [place] [address] COLONOSCOPY FLEXIBLE PROXIMAL DIAGNOSTIC 12/21/2024 10:30 AM EDT Office Visit Gastroenterology, [facility] [address] [place] [address] Emi Queen CRNP [address] [place] [address] 03/10/2025 1:20 PM EDT [facility] [address] [facility] [phone] Joanne Parks, PALinn [address] [place] [address] [place] [address] Scheduled Procedures Name Priority Associated Diagnoses Date/Ti [...] encounter Medical Devices Implanted Type Area Information Consultant Device Identifier Shelf Expiration Date Model / Serial / Lot Coil Vortex 35 Pltinm [id number] - [id number] Implanted:Qty: 1 on 11/27/2021 by Sterling Cates MD at [place] [facility] Right: Upper Arm [employer] : NEURO INTR [id number] 08/15/2024 [id number] 1 / / [id number] Coil Vortex 35 Pltinm [id number] - [id number] Implanted:Qty: 1 on 11/27/2021 by Sterling Cates MD at [place] [facility] Right: Upper Arm [employer] : NEURO INTR [id number] 08/15/2024 [id number] 1 / / [id number] Coil Vortex 35 Pltinm [id number] - [id number] Implanted:Qty: 1 on 11/27/2021 by Sterling Cates MD at OR [facility] Right: Upper Arm [employer] : NEURO INTR [id number] 08/15/2024 [id number] 1 / / [id number] Coil Vortex 35 Pltinm [id number] - [id number] Implanted:Qty: 1 on 11/27/2021 by Sterling Cates MD at OR [facility] Right: Upper Arm [employer] : NEURO INTR [id number] 05/16/2024 [id number] / / [id number] Azur 35 Detachable 5mm 11cm - [id number] Implanted:Qty: 1 on 03/19/2022 by Jose Devine MD at OR [facility] Right: Wrist [employer] [id number] 10/18/2025 [id number] / / [id number] Azur 35 Detachable 5mm 11cm - [id number] Implanted:Qty: 1 on 03/19/2022 by Jose Devine MD at OR [facility] Right: Wrist [employer] [id number] 06/19/2026 [id number] / / [id number] Mesh Flat Sheet 10x14 [id number] - [id number] Implanted:Qty: 1 on 12/11/2022 by Eros Dash MD at OR [facility] N/A: Abdomen CR BARD : DAVOL [id number] 06/17/2027 [id number] / / [id number] documented as of this encounter Visit Diagnoses Diagnosis Marginal ulcer- Primary Gastrojejunal ulcer, unspecified as acute or chronic, without mention of hemorrhage, perforation, or obstruction ESRD (end stage renal disease) on dialysis ([facility]) End stage renal disease Hypertensive 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 congestive heart failure and stage 5 chronic kidney disease on chronic dialysis ([facility]) Acute posthemorrhagic anemia Type 2 diabetes mellitus 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 dialysis, with long-term current use of insulin ([facility]) Hypothyroidism (acquired) Unspecified hypothyroidism Malignant melanoma of right upper extremity ([facility]) Aortic atherosclerosis ([facility]) Atherosclerosis of aorta Diabetic polyneuropathy associated with type 2 diabetes mellitus ([facility]) Advanced care planning/counseling discussion- Primary Other specified counseling Hypertensive 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 congestive heart failure and stage 5 chronic kidney disease on chronic dialysis ([facility]) Presence of cardiac pacemaker Cardiac pacemaker in situ SSS (sick sinus syndrome) ([facility]) Sinoatrial node dysfunction MINISTERIO on CPAP Obstructive sleep apnea (adult) (pediatric) Hypothyroidism (acquired) Unspecified hypothyroidism Type 2 diabetes mellitus 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 dialysis, with long-term current use of insulin ([facility]) S/P gastric bypass Bariatric surgery status ESRD (end stage renal disease) on dialysis ([facility]) End stage renal disease Recurrent ventral incisional hernia Incisional hernia without mention of obstruction or gangrene NO SHOW/FAILED TO KEEP APPOINTMENT- Primary Chronic diastolic heart failure ([facility])- Primary Chronic diastolic heart failure HTN, goal below 140/90 Unspecified essential hypertension Type 2 diabetes mellitus with hemoglobin A1c goal of less than 7.0% ([facility]) Hypothyroidism (acquired) Unspecified hypothyroidism Dyslipidemia, goal LDL below 100 Other and unspecified hyperlipidemia Major depressive disorder, single episode, moderate ([facility]) Major depressive disorder, single episode, moderate 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, with long-term current use of insulin ([facility]) Hyperparathyroidism, secondary renal ([facility]) Secondary hyperparathyroidism (of renal origin) End stage renal disease on dialysis ([facility]) End stage renal disease MINISTERIO on [...] Documents on File Type Date Recorded Patient Insights Manager Saranya FIGUEROA 11/13/2020 POLST NASREEN SHAW [...] Agents on File Name Relationship Healthcare Agent [facility] Communication Zhen Finley Spouse Health Care Agent Care Teams Machine Maintenance Repairer Relationship Specialty Start Date End Date Luis Fernando Rojas MD [facility] [place] [address] PCP - General Family Medicine 09/23/16 documented as of this encounter
--- OUTSIDE RECORDS SUMMARY | 2024-10-05 05:28 | External Medical Summary | Summary of Care ---
Author Name Unknown Organization [facility] Address [address] [place] [address] Phone [phone] Care Team Providers Care Car Escort Name Role Phone Luis Fernando Rojas MD Primary Care Provider [phone] Reason for Visit * Reason Onset Date Comments Advice 03/17/2024 Encounter Details Date Type Department Care Team (Late st Contact Info) Description 03/17/2024 Telephone Vascular Surg [facility] [address] [place] [address] Services, [facility] [address] [place] [address] Advice Allergies Active Allergy Reactions Criticality Noted [...] at bedtime. with food. 90 Tab 3 Active FreeStyle Jennifer 2 Sensor Use as [...] pain continues, call 911. 25 Tablet 11 022 Active Acetaminophen 325 MG Oral Tablet (Tylenol) [...] DAY OR OTHER MEDICATIONS 90 Tablet 3 08/06/19 25 3:02 PM EST 024 Active Diclofenac Sodium 1 % External [...] in the morning. 100 Capsule 1 09/10/19 4:27 PM EST 023 2023 Discontinued(R efill) amLODIPine Besylate 5 MG Oral Tablet (Norvasc) TAKE ONE TABLET BY MOUTH EVERY DAY IN THE MORNING 90 Tablet 1 09/10/19 24 4:27 PM EST 023 2023 Discontinued(R efill) Gabapentin 300 MG Oral Capsule (Neurontin) Take 1 Capsule by mouth at bedtime. Follow up with your primary care provider for further management. 90 Capsule 3 07/10/20 24 9:07 AM EST 024 2024 Discontinued(R efill) Atorvastatin Calcium 40 MG Oral Tablet (Lipitor)Indica tions:Dyslipide jennifer, goal LDL below 100 TAKE ONE TABLET BY MOUTH EVERY EVENING 90 Tablet 3 03/17/20 24 2:12 PM EDT 024 2023 Discontinued Semaglutide(0.2 5 or 0.5MG/DOS) 2 MG/3ML Solution Pen-injector (Ozempic)Indica tions:Type 2 diabetes mellitus with hemoglobin A1c goal of less than 7.0% ([facility]) Inject 0.25 mg under the skin for 4 weeks, then increase to 0.5 mg weekly thereafter 3 mL 3 10/21/19 24 1:23 PM EDT 024 2023 Discontinued(D ischarged) Insulin Glargine Solostar 100 UNIT/ML Subcutaneous Solution Pen-injector (Basaglar KwikPen)Indicat ions:Type 2 diabetes mellitus with hemoglobin A1c goal of less than 7.0% ([facility]) Inject 16 units subcutaneously every day. 30 mL 4 024 2024 Discontinued(R efill) Insulin Lispro (1 Unit Dial) 100 UNIT/ML Subcutaneous Solution Pen-injector (HumaLOG KwikPen)Indicat ions:Type 2 diabetes mellitus with hemoglobin A1c goal of less than 7.0% ([facility]) Inject 14 units with breakfast, 4 units with lunch and 16 units with supper + CF 1:25 over 150. Max dose of 45 units per day 30 mL 4 024 2024 Discontinued(R efill) Carvedilol 6.25 MG Oral Tablet (Coreg) Take 1 Tablet by mouth 2 times a day with morning and evening meals. 2023 Discontinued(M edication List Clean Up) Hospital, Clinic, or Other Facility Administered Medication Ordered Dose Route Frequency Start Date End Date Status vitamin b-12 (Cyanocobalamin) inj 1,000 mcgIndications:S/P gastric bypass 1000 mcg IM [id number] 10/15/2022 07/19/2025 Active vitamin b-12 (Cyanocobalamin) inj 1,000 mcgIndications:Morbid obesity with BMI of 40.0-44.9, adult ([facility]),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 [id number] 10/17/2023 12/11/19 25 Active documented as of this encounter (statuses as of 09/09/2024) Active Problems Problem Noted Date Diagnosed Date Recurrent ventral incisional hernia 12/11/2022 Assessment & [...] 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 10/15/2022 [facility] OTHER*[id number] 01/01/2022 S/P gastric bypass 01/01/2022 Dialysis AV [...] EDT): [facility] since January, Dr. Magallanes. Renae-Pao-Briana [...] 8:45 AM EDT): Gabapentin 600 mg at [facility] Assessment & Plan (05/07/2021 11:11 AM [...] Insulin long-term use 11/19/20182018 Overview (05/20/2019): Duplicate shelter (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 insulin 11/19/2018 [...] T-tube placement 04/16/2017 05/29/2017 [employer] Other*[id number] 04/13/2013 08/27/2016 Overview (04/13/2013): Study Title: Genomic Markers for Patients with Cardiovascular Disease Project # [id number] Supply Chain Buyer: Siena Laws MD [phone] Hypertensive heart disease 03/25/2013 1 07/29/2016 Neuropathy, [...] yrs 09/16/2018,04/14/2018,03/1104/11/2018 Pneumococcal Conjugate Vacci ne, 20-valent ([id number]) 12/02/2023(Deferred: - pt states she's already received) [...] encounter Miscellaneous Notes * Telephone Encounter - Kalyn Eaton PA-C - 03/18/2024 3:56 PM EDT Orders signed and held * Telephone Encounter - Davida Butler OSA - 03/18/2024 3:05 PM EDT Spoke to patient, offered 03/23 but patient states her would have to take off from work and "that's an important day for him at work" so she scheduled for 03/[address] Urena. Pre-op instructions given. * Telephone Encounter - Abundoi Bird CRNP - 03/17/2024 12:54 PM EDT Secretaries, Please schedule fistulagram. NPO after MN. Morning meds with a SIP of water except lispro (humalog) and do NOT take Ozempic between now and surgery. * Telephone Encounter - Cherelle Arteaga OSA - 03/17/2024 12:17 PM EDT Patti from [facility] calling regarding possible angiogram or fistula gram. Pt is having low accessflow and clearance. Please advise. Thank you MINISTERIO Stover documented in this encounter Plan of Treatment Upcoming Encounters Date Type Department Care Team (Late st Contact Info) Description 09/21/2024 10:30 AM EST Home Visit [facility] at Home, [facility] [address] [place] [address] Heidi Garcia, RN [address] [place] [address] 09/23/2024 10:50 AM EST [facility] [address] [facility] [phone] [place] [facility] [address] [facility] [address] 09/30/2024 11:00 AM EDT Office Visit Podiatry [facility] [address] [place] [phone] Calli Avila DPM [address] [place] [address] 11/30/2024 10:00 AM EDT Nurse Only Nutrition & Weight Management, [facility] [address] [place] [address] Boni, Nurse Gi Nutrition [facility] [place] [address] 12/09/2024 12:57 PM EDT Hospital Encounter OR [facility], Operating Room, [facility] - 4th Floor [address] [place] [address] [place] [phone] Himanshu Rivero DO [address] [place] [address] 12/09/2024 12:57 PM EDT - 12/09/2024 1:38 PM EDT Surgery OR [facility], Operating Room, [facility] - 4th Floor [address] [place] [address] Himanshu Rivero DO [address] [place] [address] COLONOSCOPY FLEXIBLE PROXIMAL DIAGNOSTIC 12/21/2024 10:30 AM EDT Office Visit Gastroenterology, [facility] [address] [place] [address] Emi Queen CRNP [address] [place] [address] 03/10/2025 1:20 PM EDT [facility] [place] [phone] Joanne Parks PA-C [address] [place] [address] [place] [address] Scheduled Procedures Name Priority Associated Diagnoses Date/Ti [...] this encounter Medical Devices Implanted Type Area Dehairing Machine Tender Device Identifier Shelf Expiration Date Model / Serial / Lot Coil Vortex 35 Pltinm [id number] - [id number] Implanted:Qty: 1 on 11/27/2021 by Sterling Cates MD at [place] [facility] [place] [facility] Right: Upper Arm [employer] : NEURO INTR [id number] 08/15/2024 [id number] Coil Vortex 35 Pltinm [id number] - [id number] Implanted:Qty: 1 on 11/27/2021 by Sterling Cates MD at OR [facility] [place] Right: Upper Arm [employer] : NEURO INTR [id number] 08/15/2024 [id number] 1 / / [id number] Coil Vortex 35 Pltinm [id number] - [id number] Implanted:Qty: 1 on 11/27/2021 by Sterling Cates MD at OR [facility] Right: Upper Arm [employer] : NEURO INTR [id number] 08/15/2024 [id number] / / [id number] Coil Vortex 35 Pltinm [id number] - [id number] Implanted:Qty: 1 on 11/27/2021 by Sterling Cates MD at OR [facility] [place] [facility] Right: Upper Arm [employer] : NEURO INTR [id number] 05/16/2024 [id number] 1 / / [id number] Azur 35 Detachable 5mm 11cm - [id number] Implanted:Qty: 1 on 03/19/2022 by Jose Devine MD at OR [facility] [place] [facility] Right: Wrist [employer] [id number] 10/18/2025 [id number] / / [id number] Azur 35 Detachable 5mm 11cm - [id number] Implanted:Qty: 1 on 03/19/2022 by Jose Devine MD at OR [facility] [place] Right: Wrist [employer] [id number] 06/19/2026 [id number] / / [id number] Mesh Flat Sheet 10x14 [id number] - [id number] Implanted:Qty: 1 on 12/11/2022 by Eros Dash MD at OR [facility] N/A: Abdomen CR BARD : DAVOL [id number] 06/17/2027 [id number] / / [id number] documented as of this encounter Advance Directives Documents on File Type Date Recorded Patient Audio Visual Collections Coordinator Expl anation POLST 11/13/2020 POLST DOWNEY VALERIA [...] Finley Spouse Health Care Agent Care Teams Car Escort Relationship Specialty Start Date End Date Luis Fernando Rojas MD [address] [place] [address] PCP - General Family Medicine 09/23/16 documented as of this encounter
--- OUTSIDE RECORDS SUMMARY | 2024-10-05 05:28 | External Medical Summary | Summary of Care ---
Author Name Unknown Organization [facility] Address [address] [place] [address] Phone [phone] Care Team Providers Care Log Yard Manager Name Role Phone Luis Fernando Rojas MD Primary Care Provider [phone] Reason for Referral * Evaluate & Treat - Unlimited Visits (Within 10 days (routine)) - Authorized Specialty Diagnoses / Procedures Referred By Contact Referred To Contact Vascular Surgery / Cardiovascular Surgery Diagnoses Malfunction of arteriovenous dialysis fistula, subsequent encounter Sameer Hassan MD [address] [place] [address] Phone: tel:[phone] fax:[phone] Referral ID Status Reason Start Date Expiration Date Visits Requested Visits Authorized [id number] Authorized Specialty Services Required 09/09/2024 999 999 [...] 09/09/2024 Telephone [place] [address] [place] [address] Sameer Hassan MD [address] [place] [address] [address] Referral Requested by Specialist Allergies Active Allergy [...] 4 08/21/2024 8:06 AM EST 4 Active Student Retention SolutionsTouch Verio In Vitro Strip (Glucose Blood) To test blood sugar 4 times daily. 400 Strip 1 04/22/2024 6:47 AM EDT 4 Active OneTouch Delica Lancets 33G To test blood sugar 4 times daily. 400 Each 1 04/22/2024 6:47 AM EDT 4 Active Student Retention SolutionsTouch Verio w/Device Kit Use as directed. 1 [...] 1,000 mcgIndications:S/P gastric bypass 1000 mcg IM [id number] 10/15/2022 07/19/2025 Active vitamin b-12 (Cyanocobalamin) inj 1,000 mcgIndications:Morbid obesity with BMI of 40.0-44.9, adult (HCC),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 [id number] 10/17/2023 12/11/19 25 Active documented as of [...] 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 10/15/2022 MORFIN RESEARCH OTHER*[id number] 01/01/2022 S/P gastric bypass 01/01/[address] [...] 8:45 AM EDT): Gabapentin 600 mg at [facility] Assessment & Plan (05/07/2021 11:11 [...] Insulin long-term use 11/19/20182018 Overview (05/20/2019): 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 [...] T-tube placement 04/16/2017 05/29/2017 [employer] Other*[id number] 04/13/2013 08/27/2016 Overview (04/13/2013): Study Title: Genomic Markers for Patients with Cardiovascular Disease Project # [id number] Account Support Rep: Siena Laws MD [phone] Hypertensive heart disease 03/25/2013 1 07/29/2016 Neuropathy, [...] CG/0.3 mL, 12 YRS AND ABOVE, IM ([employer]) 06/02/2024 HEPATITIS B VACCINE, RECOMB, 20 MCG/ML, ADULT (HEPLISAV-B) 09/05/2021,05/09/2021,04/04/2021,02/18 Hepatitis B, 20+ yrs 09/16/2018,04/14/2018,03/1104/11/2018 Pneumococcal Conjugate Vacci ne, 20-valent ([id number]) 06/22/2024,12/02/2023(Deferred: - pt states she's already received) [...] subclavianand axillary veins I called Kimmy at [phone] and spoke with Hina and she states [...] Description 09/21/2024 10:30 AM EST Home Visit [facility], [facility] [address] [facility] [place] [address] Heidi Garcia RN [address] [facility] [place] [address] 09/23/2024 10:50 AM EST Telemedicine Pharmacy, [place] [facility] [address] [place] [phone] [place] [address] [place] [address] 09/30/2024 11:00 AM EDT Office Visit Podiatry [facility] [address] [place] [phone] Calli Avila DPM [address] [place] [address] 11/30/2024 10:00 AM EDT Nurse Only Nutrition & Weight Management, [facility] [address] [place] [address] [place], Nurse Gi Nutrition [facility] [address] [place] [address] 12/09/2024 12:57 PM EDT Hospital Encounter OR GL, Operating Room, [facility] - 4th Floor [address] [place] [phone] Himanshu Rivero, DO [address] [place] [address] 12/09/2024 12:57 PM EDT - 12/09/2024 1:38 PM EDT Surgery OR [facility], Operating Room, [facility] - 4th Floor [address] [place] [phone] Himanshu Rivero, DO [address] [place] [address] COLONOSCOPY FLEXIBLE PROXIMAL DIAGNOSTIC 12/21/2024 10:30 AM EDT Office Visit Gastroenterology, [facility] [address] [place] [address] Emi Queen CRNP [address] [place] [address] 03/10/2025 1:20 PM EDT Office Visit Dermatology, [place] [address] [phone] Joanne Parks PA-C [address] [place] [address] [place] [address] Scheduled Procedures Name Priority Associated Diagnoses Date/Ti [...] this encounter Medical Devices Implanted Type Area Law Librarian Device Identifier Shelf Expiration Date Model / Serial / Lot Coil Vortex 35 Pltinm [id number] - [id number] Implanted:Qty: 1 on 11/27/2021 [place] [facility] [place] Upper Arm [employer] : NEURO INTR [id number] 08/15/2024 [id number] Coil Vortex 35 Pltinm [id number] - [id number] Implanted:Qty: 1 on 11/27/2021 by Sterling Cates [place] [facility] [place]: Upper Arm [employer] : NEURO INTR [id number] 08/15/2024 [id number] / [id number] Coil Vortex 35 Pltinm [id number] - [id number] Implanted:Qty: 1 on 11/27/2021 by Sterling Cates [place] [facility] [place]: Upper Arm [employer] : NEURO INTR [id number] 08/15/2024 [id number] / / [id number] Coil Vortex 35 Pltinm [id number] - [id number] Implanted:Qty: 1 on 11/27/2021 by Sterling Cates [place] [facility] [place]: Upper Arm [employer] : NEURO INTR [id number] 05/16/2024 [id number] / / [id number] Azur 35 Detachable 5mm 11cm - [id number] Implanted:Qty: 1 on 03/19/2022 by Jose Devine MD [place] [facility] [place]: Wrist [employer] [id number] 10/18/2025 [id number] / / [id number] Azur 35 Detachable 5mm 11cm - [id number] Implanted:Qty: 1 on 03/19/2022 by Jose Devine MD [place] [facility] [place]: Wrist [employer] [id number] 06/19/2026 [id number] / / [id number] Mesh Flat Sheet 10x14 [id number] - [id number] Implanted:Qty: 1 on 12/11/2022 by Eros Dash MD [place] [facility] [place]/A: Abdomen CR BARD : DAVOL [id number] 06/17/2027 [id number] / / [id number] documented as of this encounter Visit Diagnoses [...] Chronic diastolic heart failure ([facility] Primary Chronic diastolic heart failure HTN, goal below 140/90 Unspecified essential hypertension Type 2 diabetes mellitus with hemoglobin A1c goal of less than 7.0% ([facility]) Hypothyroidism (acquired) Unspecified hypothyroidism Dyslipidemia, goal LDL below 100 Other and unspecified hyperlipidemia Major depressive disorder, single episode, moderate ([facility]) Major depressive disorder, single episode, moderate 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, with long-term current use of insulin ([facility]) Hyperparathyroidism, secondary renal ([facility]) Secondary hyperparathyroidism (of renal origin) End stage renal disease on dialysis ([facility]) End stage renal disease MINISTERIO on CPAP Obstructive sleep apnea (adult) (pediatric) Diarrhea, unspecified type Malfunction of arteriovenous dialysis fistula, subsequent encounter- Primary History of colonic polyps Personal history of colonic polyps Diarrhea documented in this encounter Advance Directives Documents on File Type Date Recorded Patient Human Performance Consultant Expl [email or web address] HENRY 11/13/2020 HENRY SHAW ORDERS [...] Agents on File Name Relationship Healthcare Agent [facility] Communication Zhen Finley Spouse Health Care Agent Care Teams Log Yard Manager Relationship Specialty Start Date End Date Luis Fernando Rojas MD [address] [address] PCP - General Family Medicine 09/23/16 documented as of this encounter
--- OUTSIDE RECORDS SUMMARY | 2024-10-05 05:28 | External Medical Summary | Summary of Care ---
Author Name Unknown Organization [facility] Address [address] [place] [address] Phone [phone] Care Team Providers Care Semi Driver Name Role Phone Luis Fernando Rojas MD Primary Care Provider [phone] Reason for Visit * Reason Comments Dosage Adjustment In Person (Anticoag Cl inic) Diabetes Management Encounter Details Date Type Department Care Team (Late st Contact Info) Description 09/09/2024 11:10 AM EST Telemedicine Pharmacy, [facility] [address] [place] [phone] [place] [facility] [address] [place] [address] Type 2 diabetes mellitus with hemoglobin A1c goal of less than 7.0% ([facility])* Allergies Active Allergy Reactions Criticality Noted Date [...] directed. Replace every 14 days (supplied through [facility]) 7 Each 3 1 Active CPAP every [...] than 7.0% ([facility]) Use 4 times daily with insulin 400 [...] 4 08/21/2024 8:06 AM EST 4 Active [employer] In Vitro Strip (Glucose Blood) To test blood sugar 4 times daily. 400 Strip 1 04/22/2024 6:47 AM EDT 4 Active RideApart Delica Lancets 33G To test blood sugar 4 times daily. 400 Each 1 04/22/2024 6:47 AM EDT 4 Active [employer]Apart [email or web address] w/Device Kit Use as directed. 1 Kit [...] 08/19/2024 Benzonatate 100 MG Oral Capsule (Tessalon Perlwendi) Take 1 Capsule by mouth 3 [...] 1,000 mcgIndications:S/P gastric bypass 1000 mcg IM [id number] 10/15/2022 07/19/2025 Active vitamin b-12 (Cyanocobalamin) inj 1,000 mcgIndications:Morbid obesity with BMI of 40.0-44.9, adult (HCC),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 [id number] 10/17/2023 12/11/19 25 Active documented as of [...] 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 10/15/2022 MORFIN RESEARCH OTHER*[id number] 01/01/2022 S/P gastric bypass 01/01/[address] [...] 8:45 AM EDT): Gabapentin 600 mg at [facility] Assessment & Plan (05/07/2021 11:11 [...] Insulin long-term use 11/19/20182018 Overview (05/20/2019): Duplicate penitentiary (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 insulin 11/19/2018 10/08/2022 Morbid [...] T-tube placement 04/16/2017 05/29/2017 [employer] Other*[id number] 04/13/2013 08/27/2016 Overview (04/13/2013): Study Title: Genomic Markers for Patients with Cardiovascular Disease Project # [id number] Oil And Gas Superintendent: Siena Laws MD [phone] Hypertensive heart disease 03/25/2013 1 07/29/2016 Neuropathy, [...] yrs 09/16/2018,04/14/2018,03/1104/11/2018 Pneumococcal Conjugate Vacci ne, 20-valent (Pkmqtxm19) 06/22/2024,12/02/2023(Deferred: - pt states she's already received) [...] documented in this encounter Progress Notes * Vera Langston RP - 09/09/2024 12:04 PM EST Agree with plan as documented. I was present and in the exam room for the entirety of the visit. Vera Langston [facility] Clinical Pharmacist 09/09/2024, 12:04 PM * Janis Ding RP - 09/09/2024 11:10 AM EST Images from the original note were not included. Patient location: HOME. I was in a hospital or clinic location. After connecting through [employer],patient was verified with two unique identifiers. Patient (or authorized legal electronics parts sales representative) was then informed that this [...] name and date of , is a 63 year old female being seen for diabetes management/education. Patient presents for return diabetic visit. DIABETES: Current diabetic medications: DEC Basaglar 10 units daily - Pt reported taking 12 units daily instead INC Humalog 10 units with breakfast, lunch and + 2 units supper; sometimes varies (PAP) -On dialysis days (, W, ), pt either skip or cut in half for breakfast Humalog dose, and take thelunch Humalog dose later in the day (after 2PM) Medication Injection Site: Abdomen Lifestyle: Diet: unchanged Glucose Review/SMBG: Readings obtained from patient device -set up with [employer] account data sharing -The gaps in data were due to just forgetting to put the jennifer on -Pt likes to have higher blood glucose on dialysis days in fear of low blood sugar Hypoglycemia: Does your blood sugar go below 70 mg/dL? Yes, pt reported some overnight lows (confirmed with fingerstick) Hyperglycemia symptoms present: none Recent Labs Units 12/12/22 0718 HEMOGLOBIN A1C - [facility] % 7.8* Recent Labs Units 12/19/22 0756 12/18/22 0709 12/17/22 0659 ESTIMATED GLOMERULAR FILTRATION RATE - [facility] mL/min 11* 8* 11* CREATININE - [facility] mg/dL 4.4* 5.9* 4.3* Most recent A1C was done on 05/07/24 at 7.7% HYPERTENSION: Patient on ACEi/ARB: no, allergic BP Readings from Last 3 Encounters: 08/19/24 132/74 07/15/24 124/24 07/07/24 130/64 Blood pressure at goal: yes HEALTH MAINTENANCE REVIEW: Health Maintenance Due Topic Date Due TSH 01/23/2023 Mammogram 07/08/2024 Depression Monitoring 08/14/2024 ASSESSMENT & PLAN: ICD-10-CM 1. Type 2 diabetes mellitus with hemoglobin A1c goal of less than 7.0% ([facility]) E11.9 Considerations: - dialysis MWF --> Tues/Thurs appts preferred - obtaining basaglar and humalog from [employer] - Freestyle jennifer supplied by [facility] Pt reported overnight lows blood glucose. Has high blood glucose throughout the day. Plan to adjustas below. BG Readings - Blood sugars uncontrolled. Struggling with low blood sugars at night, but rising during the day Medications - Pt self-adjusts dose. Pt reported taking 12 units daily glargine instead of the instructed 10 units daily. On non-dialysis days, she has been adherent to Humalog dosing TID. On Dialysisdays, she adjusts the morning dosing either by cutting in half or not taking due to the fear of lowblood sugar during the day. She also reported taking humalog later in the afternoon on dialysis days. Diet, Exercise, Lifestyle - No significant lifestyle changes since last visit. Discussed with patient. Patient is agreeable to SMBG with jennifer time(s) daily. Patient aware to contact clinic if any hypoglycemia before next visit. MEDICATION CHANGES: yes, see below; preferred pharmacy: [facility] Medications: DEC Basaglar 10 units daily INC Humalog 12 units with breakfast, 12 units with lunch and 14 units with supper (PAP) -on dialysis days, humalog 10 units with breakfast, 10 units with lunch, and 12 units with supper FOLLOW UP: Return to clinic in 3 weeks 09/23/2024 I spent a total of 40-54 minutes (exact time 45 mins) on the date of service in preparation, delivery, and documentation of the care provided to Candi Finley excluding any time spent in the performance of separately billed services. Janis Ding, PharmLi, [facility] PGY1 Web Page Designer Medication Therapy [facility] [place] 09/09/2024 12:02 PM Cosigned by Vera Langston RPh at 09/09/2024 12:04 PM EST documented in this encounter Plan of Treatment Upcoming Encounters Date Type Department Care Team (Late st Contact Info) Description 09/21/2024 10:30 AM EST Home Visit Luis A at Home, [facility] [address] [place] [address] Heidi Garcia, RN [address] [place] [address] 09/23/2024 10:50 AM EST Telemedicine Pharmacy, [facility] [address] [place] [address] [place] [facility] [address] [facility] [address] 09/30/2024 11:00 AM EDT Office Visit Podiatry [facility] [address] [place] [phone] Calli Avila DPM [address] [place] [address] 11/30/2024 10:00 AM EDT Nurse Only Nutrition & Weight Management, [facility] [address] [facility] [place] [address] Nurse Boni Gi Nutrition [facility] [address] [facility] [place] [address] 12/09/2024 12:57 PM EDT Hospital Encounter OR GL, Operating Room, [facility] - 4th Floor [address] [place] [phone] Himanshu Rivero DO [address] [place] [address] 12/09/2024 12:57 PM EDT - 12/09/2024 1:38 PM EDT Surgery OR [facility], [facility], [facility] - 4th Floor [address] [place] [phone] Himanshu Rivero DO [address] [place] [address] COLONOSCOPY FLEXIBLE PROXIMAL DIAGNOSTIC 12/21/2024 10:30 AM EDT Office Visit Gastroenterology, [facility] [address] [facility] [place] [address] Emi Queen CRNP [address] [place] [address] 03/10/2025 1:20 PM EDT Office [facility], [place] [facility] [address] [facility] [place] [phone] Joanne Parks PA-C [address] [place] [address] [place] [address] Scheduled Procedures Name Priority Associated Diagnoses Date/Ti [...] this encounter Medical Devices Implanted Type Area Boom Storage Device Identifier Shelf Expiration Date Model / Serial / Lot Coil Vortex 35 Pltinm [id number] - [id number] Implanted:Qty: 1 on 11/27/2021 by Sterling C[place] [facility] Upper Arm [employer] : NEURO INTR [id number] 08/15/2024 [id number] Coil Vortex 35 Pltinm [id number] - [id number] Implanted:Qty: 1 on 11/27/2021 by Sterling Cates [place] [facility] [place]: Upper Arm [employer] : NEURO INTR [id number] 08/15/2024 [id number] / / [id number] Coil Vortex 35 Pltinm [id number] - [id number] Implanted:Qty: 1 on 11/27/2021 by Sterling Cates MD [place] [facility] [place]: Upper Arm [employer] : NEURO INTR [id number] 08/15/2024 [id number] / / [id number] Coil Vortex 35 Pltinm [id number] - [id number] Implanted:Qty: 1 on 11/27/2021 by Sterling Cates MD [place] [facility] [place]: Upper Arm [employer] : NEURO INTR [id number] 05/16/2024 [id number] / / [id number] Azur 35 Detachable 5mm 11cm - [id number] Implanted:Qty: 1 on 03/19/2022 by Jose Devine MD [place] [facility] [place]: Wrist [employer] [id number] 10/18/2025 [id number] / / [id number] Azur 35 Detachable 5mm 11cm - [id number] Implanted:Qty: 1 on 03/19/2022 by Jose Devine MD [place] [facility] [place]: Wrist [employer] [id number] 06/19/2026 [id number] / / [id number] Mesh Flat Sheet 10x14 [id number] - [id number] Implanted:Qty: 1 on 12/11/2022 by Eros Dash MD [place] [facility] [place]/A: Abdomen CR BARD : DAVOL [id number] 06/17/2027 [id number] / / [id number] documented as of this encounter Visit Diagnoses [...] associated with type 2 diabetes mellitus ([facility]) Advanced care planning/counseling discussion- Primary Other specified counseling Hypertensive 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 congestive heart failure and stage 5 chronic kidney disease on chronic dialysis ([facility]) Presence of cardiac pacemaker Cardiac pacemaker in situ SSS (sick sinus syndrome) ([facility]) Sinoatrial node dysfunction MINISTERIO on CPAP Obstructive sleep apnea (adult) (pediatric) Hypothyroidism (acquired) Unspecified hypothyroidism Type 2 diabetes mellitus 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 dialysis, with long-term current use of insulin ([facility]) S/P gastric bypass Bariatric surgery status ESRD (end stage renal disease) on dialysis ([facility]) End stage renal disease Recurrent ventral incisional hernia Incisional hernia without mention of obstruction or gangrene NO SHOW/FAILED TO KEEP APPOINTMENT- Primary Chronic diastolic heart failure ([facility])- Primary Chronic diastolic heart failure HTN, goal below 140/90 Unspecified essential hypertension Type 2 diabetes mellitus with hemoglobin A1c goal of less than 7.0% ([facility]) Hypothyroidism (acquired) Unspecified hypothyroidism Dyslipidemia, goal LDL below 100 Other and unspecified hyperlipidemia Major depressive disorder, single episode, moderate ([facility]) Major depressive disorder, single episode, moderate 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, with long-term current use of insulin ([facility]) Hyperparathyroidism, secondary renal ([facility]) Secondary hyperparathyroidism (of renal origin) End stage renal disease on dialysis ([facility]) End stage renal disease MINISTERIO on CPAP Obstructive sleep apnea (adult) (pediatric) Diarrhea, unspecified type Type 2 diabetes mellitus with hemoglobin A1c goal of less than 7.0% ([facility] Primary History of colonic polyps Personal history of colonic polyps Diarrhea documented in this encounter Advance Directives Documents on File Type Date Recorded Patient Tractor Engine Assembler Expl anation HENRY 11/13/2020 HENRY SHAW ORDERS [...] Finley Spouse Health Care Agent Care Teams Semi Driver Relationship Specialty Start Date End Date Luis Fernando Rojas MD [address] [facility] [place] [address] PCP - General Family Medicine 09/23/16 documented as of this encounter
--- OUTSIDE RECORDS SUMMARY | 2024-10-05 05:28 | External Medical Summary | Summary of Care ---
Author Name Unknown Organization [facility] Address [address] [place] [address] Phone [phone] Care Team Providers Care Terminal Gauger Supervisor Name Role Phone Luis Fernando Rojas MD Primary Care Provider [phone] Reason for Visit * Reason Comments Dosage Adjustment In Person (Anticoag Cl inic) Diabetes Management Encounter Details Date Type Department Care Team (Late st Contact Info) Description 09/09/2024 11:10 AM EST Telemedicine Pharmacy, [facility] [address] [place] [phone] [place] [facility] [address] [place] [address] Type 2 diabetes mellitus with hemoglobin A1c goal of less than 7.0% ([facility])* Allergies Active Allergy Reactions Criticality Noted Date [...] directed. Replace every 14 days (supplied through [facility]) 7 Each 3 1 Active CPAP every [...] 4 08/21/2024 8:06 AM EST 4 Active Action Engine In Vitro Strip (Glucose Blood) To test blood sugar 4 times daily. 400 Strip 1 04/22/2024 6:47 AM EDT 4 Active 365looks Delica Lancets 33G To test blood sugar 4 times daily. 400 Each 1 04/22/2024 6:47 AM EDT 4 Active 365looks VerINVOLTA w/Device Kit Use as directed. 1 Kit [...] 1,000 mcgIndications:S/P gastric bypass 1000 mcg IM [id number] 10/15/2022 07/19/2025 Active vitamin b-12 (Cyanocobalamin) inj 1,000 mcgIndications:Morbid obesity with BMI of 40.0-44.9, adult (HCC),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 [id number] 10/17/2023 12/11/19 25 Active documented as of [...] 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 10/15/2022 [facility] RESEARCH OTHER*[id number] 01/01/2022 S/P gastric bypass 01/01/[address] [...] 8:45 AM EDT): Gabapentin 600 mg at [facility] Assessment & Plan (05/07/2021 11:11 AM [...] Insulin long-term use 11/19/20182018 Overview (05/20/2019): Duplicate [facility] (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 insulin 11/19/2018 [...] T-tube placement 04/16/2017 05/29/2017 [employer] Other*[id number] 04/13/2013 08/27/2016 Overview (04/13/2013): Study Title: Genomic Markers for Patients with Cardiovascular Disease Project # [id number] Supervisor Tile And Mottle: Siena Laws MD [phone] Hypertensive heart disease 03/25/2013 1 07/29/2016 Neuropathy, [...] yrs 09/16/2018,04/14/2018,03/1104/11/2018 Pneumococcal Conjugate Vacci ne, 20-valent ([id number]) 06/22/2024,12/02/2023(Deferred: - pt states she's already received) [...] the entirety of the visit. Vera Langston [facility] Clinical Pharmacist 09/09/2024, 12:04 PM * Janis Ding RP - 09/09/2024 11:10 AM EST Images from the original note were not included. Patient location: HOME. I was in a hospital or clinic location. After connecting through [employer],patient was verified with two unique identifiers. Patient (or authorized legal employment representative) was then informed that this was [...] obtained from patient device -set up with [employer] account data sharing -The gaps in data [...] of less than 7.0% ([facility]) E11.9 Considerations: - dialysis MWF --> Tues/Thurs appts preferred - obtaining basaglar and humalog from [facility] jennifer supplied by [facility] Medical Pt reported overnight lows blood glucose. [...] of separately billed services. Janis Ding, PharmLi, [facility] PGY1 Waste Water Or Water Plant Operator Medication Therapy Management Clinics [place] 09/09/2024 12:02 PM Cosigned by Vera Langston RPh at 09/09/2024 12:04 PM EST documented in this encounter Plan of Treatment Upcoming Encounters Date Type Department Care Team (Late st Contact Info) Description 09/21/2024 10:30 AM EST Home Visit Luis A at Home, [facility] [address] [place] [address] Heidi Garcia, RN [address] [place] [address] 09/23/2024 10:50 AM EST Telemedicine Pharmacy, [facility] [address] [facility] [place] [address] [facility] [address] [facility] [address] 09/30/2024 11:00 AM EDT Office Visit Podiatry [facility] [address] [place] [phone] Calli Avila DPM [address] [place] [address] 11/30/2024 10:00 AM EDT Nurse Only Nutrition & Weight Management, [facility] [address] [facility] [place] [address] Nurse Boni Gi Nutrition [facility] [address] [facility] [place] [address] 12/09/2024 12:57 PM EDT Hospital Encounter OR GL, Operating Room, [facility] - 4th Floor [address] [place] [phone] Himanshu Rivero DO [address] [place] [address] 12/09/2024 12:57 PM EDT - 12/09/2024 1:38 PM EDT Surgery OR [facility], Operating Room, [facility] - 4th Floor [address] [place] [address] Himanshu Rivero DO [address] [place] [address] COLONOSCOPY FLEXIBLE PROXIMAL DIAGNOSTIC 12/21/2024 10:30 AM EDT Office Visit Gastroenterology, [facility] [address] [facility] [place] [address] Emi Queen CRNP [address] [place] [address] 03/10/2025 1:20 PM EDT [facility], [place] [facility] [address] [facility] [place] [phone] Joanne Parks PA-C [address] [place] [address] [place] [address] Scheduled Procedures Name Priority Associated Diagnoses Date/Ti [...] this encounter Medical Devices Implanted Type Area Metal Reed Tuner Device Identifier Shelf Expiration Date Model / Serial / Lot Coil Vortex 35 Pltinm [id number] - [id number] Implanted:Qty: 1 on 11/27/2021 by Sterling Cates MD at [place] [facility] [place]: Upper Arm [employer] : NEURO INTR [id number] 08/15/2024 [id number] Coil Vortex 35 Pltinm [id number] - [id number] Implanted:Qty: 1 on 11/27/2021 by Sterling Cates MD [place] [facility] [place]: Upper Arm [employer] : NEURO INTR [id number] 08/15/2024 [id number] / / [id number] Coil Vortex 35 Pltinm [id number] - [id number] Implanted:Qty: 1 on 11/27/2021 by Sterling Cates MD at [place] [facility] [place]: Upper Arm [employer] : NEURO INTR [id number] 08/15/2024 [id number] / / [id number] Coil Vortex 35 Pltinm [id number] - [id number] Implanted:Qty: 1 on 11/27/2021 by Sterling Cates MD at [place] [facility] Right: Upper Arm [employer] : NEURO INTR [id number] 05/16/2024 [id number] / / [id number] Azur 35 Detachable 5mm 11cm - [id number] Implanted:Qty: 1 on 03/19/2022 by Jose Devine MD at [place] [facility] Right: Wrist [employer] [id number] 10/18/2025 [id number] / / [id number] Azur 35 Detachable 5mm 11cm - [id number] Implanted:Qty: 1 on 03/19/2022 by Jose Devine MD at [place] [facility] Right: Wrist [employer] [id number] 06/19/2026 [id number] / / [id number] Mesh Flat Sheet 10x14 [id number] - [id number] Implanted:Qty: 1 on 12/11/2022 by Eros Dash MD at [place] [facility] N/A: Abdomen CR BARD : DAVOL [id number] 06/17/2027 [id number] / / [id number] documented as of this encounter Visit Diagnoses [...] with type 2 diabetes mellitus ([facility]) Advanced care planning/counseling discussion- Primary Other specified counseling Hypertensive 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 congestive heart failure and stage 5 chronic kidney disease on chronic dialysis ([facility]) Presence of cardiac pacemaker Cardiac pacemaker in situ SSS (sick sinus syndrome) ([facility]) Sinoatrial node dysfunction MINISTERIO on CPAP Obstructive sleep apnea (adult) (pediatric) Hypothyroidism (acquired) Unspecified hypothyroidism Type 2 diabetes mellitus 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 dialysis, with long-term current use of insulin ([facility]) S/P gastric bypass Bariatric surgery status ESRD (end stage renal disease) on dialysis ([facility]) End stage renal disease Recurrent ventral incisional hernia Incisional hernia without mention of obstruction or gangrene NO SHOW/FAILED TO KEEP APPOINTMENT- Primary Chronic diastolic heart failure ([facility])- Primary Chronic diastolic heart failure HTN, goal below 140/90 Unspecified essential hypertension Type 2 diabetes mellitus with hemoglobin A1c goal of less than 7.0% ([facility]) Hypothyroidism (acquired) Unspecified hypothyroidism Dyslipidemia, goal LDL below 100 Other and unspecified hyperlipidemia Major depressive disorder, single episode, moderate ([facility]) Major depressive disorder, single episode, moderate 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, with long-term current use of insulin ([facility]) Hyperparathyroidism, secondary renal ([facility]) Secondary hyperparathyroidism (of renal origin) End stage renal disease on dialysis ([facility]) End stage renal disease MINISTERIO on CPAP Obstructive sleep apnea (adult) (pediatric) Diarrhea, unspecified type Type 2 diabetes mellitus with hemoglobin A1c goal of less than 7.0% ([facility])- Primary History of colonic polyps Personal history of colonic polyps Diarrhea documented in this encounter Advance Directives Documents on File Type Date Recorded Patient Business Intelligence Manager Expl anation HENRY 11/13/2020 HENRY SHAW ORDERS [...] Finley Spouse Health Care Agent Care Teams Terminal Gauger Supervisor Relationship Specialty Start Date End Date Luis Fernando Rojas MD [address] [facility] [place] [address] PCP - General Family Medicine 09/23/16 documented as of this encounter
--- OUTSIDE RECORDS SUMMARY | 2024-10-05 05:28 | External Medical Summary | Summary of Care ---
Author Name Unknown Organization [facility] Address [address] [place] [address] Phone [phone] Care Team Providers Care Rubber Printing Machine Operator Name Role Phone Luis Fernando Rojas MD Primary Care Provider Reason for Visit * Reason Comments Medication Administration Vit B 12 Encounter Details Date Type Department Care Team (Late st Contact Info) Description 09/02/2024 10:00 AM EST Nurse Only Nutrition & Weight Management, [facility] [address] [facility] [place] [address] [facility], Nurse Gi Nutrition [facility] [address] [facility] [place] [address] Medication Administration (Vit B 12) Allergies Active Allergy Reactions Criticality Noted Date Comments Salvador Inhibitors Other (Please comment),Cough High HyperKalemia documented as of this encounter (statuses as of 09/02/2024) Medications Melatonin 10 MG Tablet Take 12 [...] mouth in the morning. 100 Capsule 3 06/11/2024 8:08 AM EST 4 Active Carvedilol 12.5 MG Oral Tablet (Coreg)Indicatio ns:HTN, goal below 140/90 Take 1 Tablet by mouth in the morning and 1 Tablet before bedtime. 180 Tablet 4 08/21/2024 8:06 AM EST 4 Active Anjuke In Vitro Strip (Glucose Blood) To test blood sugar 4 times daily. 400 Strip 1 04/22/2024 6:47 AM EDT 4 Active Lingoing Delica Lancets 33G To test blood sugar 4 times daily. 400 Each 1 04/22/2024 6:47 AM EDT 4 Active Anjuke w/Device Kit Use as directed. 1 Kit 04/22/2024 6:47 AM EDT 4 Active buPROPion HCl ER (SR) 150 MG Oral Tablet Extended Release 12 Hour (Wellbutrin SR) Take 1 Tablet by mouth every evening. 90 Tablet 06/03/2024 1:04 PM EST Active Albuterol Sulfate 0.63 MG/3ML Inhalation Nebulization [...] 1,000 mcgIndications:S/P gastric bypass 1000 mcg IM [id number] 10/15/2022 07/19/2025 Active vitamin b-12 (Cyanocobalamin) inj 1,000 mcgIndications:Morbid obesity with BMI of 40.0-44.9, adult (HCC),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 [id number] 10/17/2023 12/11/19 25 Active documented as of this encounter (statuses as of 09/02/2024) Active Problems Problem Noted Date Diagnosed Date [...] 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 10/15/2022 MORFIN RESEARCH OTHER*[id number] 01/01/2022 S/P gastric bypass 01/01/[address] [...] as of this encounter (statuses as of 09/02/2024) Resolved Problems Problem Noted Date Diagnosed Date [...] T-tube placement 04/16/2017 05/29/2017 [employer] Other*[id number] 04/13/2013 08/27/2016 Overview (04/13/2013): Study Title: Genomic Markers for Patients with Cardiovascular Disease Project # [id number] Poultry Picking Machine Tender: Siena Laws MD [phone] Hypertensive heart disease 03/25/2013 1 07/29/2016 Neuropathy, [...] as of this encounter (statuses as of 09/02/2024) Immunizations Name Administration Dates Next Due COVID-19 mRNA, LNP-s, No Pre serve, 2-Dose Series (Moderna) 04/09/2021,09/23/2020,08/19/2020 COVID-19, LNP-s, No Preserve , Espinoza-sucrose, Ages 12+ (Pfizer) 01/08/2022 COVID-19, MRNA-LNP, PF, 30 M CG/0.3 mL, 12 YRS AND ABOVE, IM (Tribal Nova-Comirnaty) 06/02/2024 HEPATITIS B VACCINE, RECOMB, 20 MCG/ML, ADULT (HEPLISAV-B) 09/05/2021,05/09/2021,04/04/2021,02/18 Hepatitis B, 20+ yrs 09/16/2018,04/14/2018,03/1104/11/2018 Pneumococcal Conjugate Vacci ne, 20-valent ([id number]) 06/22/2024,12/02/2023(Deferred: - pt states she's already received) [...] Rabia Granados RN documented in this encounter Nursing Notes * Britt Jennings RN - 09/02/2024 10:11 AM EST Chief Complaint Patient presents with Medication Administration Vit B 12 Pre-Administration Time Out Procedure Performed: Yes Patient Identified (Ask Name/Date of ): Yes Does the patient have a fever greater than 101 degrees today? No Patient allergic to latex? No Has the patient ever fainted after receiving an injection? No VFC Stock: No Injection(s) verified: Yes, Injection Name: Vitamin B 12 Verified Side and Site: Yes Verified Shot(s) with Parent(s)/Patient: Yes documented in this encounter Plan of Treatment Upcoming Encounters Date Type Department Care Team (Late st Contact Info) Description 09/09/2024 11:10 AM EST Telemedicine Pharmacy, [place] [phone] [place] [facility] [address] [facility] [place] [address] 09/21/2024 10:30 AM EST [facility] Visit [facility], [facility] [address] [place] [address] Heidi Garcia RN [address] [place] [address] 09/30/2024 11:00 AM EDT Office Visit Podiatry [facility] [address] [place] [phone] Calli Avila DPM [address] [place] [address] 11/30/2024 10:00 AM EDT Nurse Only Nutrition & Weight Management, [facility] [place] [address] [facility], Nurse Gi Nutrition [facility] [address] [place] [address] 12/09/2024 12:57 PM EDT Hospital Encounter OR [facility], Operating Room, [facility] - 4th Floor [address] [place] [phone] Himanshu Rivero DO [address] [place] [address] 12/09/2024 12:57 PM EDT - 12/09/2024 1:38 PM EDT Surgery OR [facility], Operating Room, [facility] - 4th Floor [address] [place] [address] Himanshu Rivero DO [address] [place] [address] COLONOSCOPY FLEXIBLE PROXIMAL DIAGNOSTIC 12/21/2024 10:30 AM EDT Office Visit Gastroenterology, [facility] [address] [place] [address] Emi Queen CRNP [address] [place] [address] 03/10/2025 1:20 PM EDT Office Visit Dermatology, [facility] [address] [facility] [place] [phone] Joanne Parks PA-C [address] [place] [address] [place] [address] Scheduled Procedures Name Priority Associated Diagnoses Date/Ti [...] , 04/09/2021, Additional history exists Pneumococcal Vaccine: 50+ Years Completed 06/22/2024, 08/30/2014, 09/18/2013, Additional history exists HPV (Gardasil) Vaccine Aged Out No lo nger eligible based on patient's age to complete this topic MENINGOCOCCAL (MENACTRA/MENVEO) Aged Out No longer eligible based on patient's age to complete this topic documented as of this encounter Medical Devices Implanted Type Area Cane Feeder Device Identifier Shelf Expiration Date Model / Serial / Lot Coil Vortex 35 Pltinm [id number] - [id number] Implanted:Qty: 1 on 11/27/2021 by Sterling Cates MD at [place] [facility] Right: Upper Arm [employer] : NEURO INTR [id number] 08/15/2024 [id number] Coil Vortex 35 Pltinm [id number] - [id number] Implanted:Qty: 1 on 11/27/2021 by Sterling Cates MD at OR [facility] Right: Upper Arm [employer] : NEURO INTR [id number] 08/15/2024 [id number] / [id number] Coil Vortex 35 Pltinm [id number] - [id number] Implanted:Qty: 1 on 11/27/2021 by Sterling Cates MD at OR [facility] Right: Upper Arm [employer] : NEURO INTR [id number] 08/15/2024 [id number] / / [id number] Coil Vortex 35 Pltinm [id number] - [id number] Implanted:Qty: 1 on 11/27/2021 by Sterling Cates MD at OR [facility] Right: Upper Arm [employer] : NEURO INTR [id number] 05/16/2024 [id number] / / [id number] Azur 35 Detachable 5mm 11cm - [id number] Implanted:Qty: 1 on 03/19/2022 by Jose Devine MD at OR [facility] Right: Wrist [employer] [id number] 10/18/2025 [id number] / / [id number] Azur 35 Detachable 5mm 11cm - [id number] Implanted:Qty: 1 on 03/19/2022 by Jose Devine MD at OR [facility] Right: Wrist [employer] [id number] 06/19/2026 [id number] / / [id number] Mesh Flat Sheet 10x14 [id number] - [id number] Implanted:Qty: 1 on 12/11/2022 by Eros Dash MD at OR [facility] N/A: Abdomen CR BARD : DAVOL [id number] 06/17/2027 [id number] / / [id number] documented as of this encounter Administered Medications Active Administered Medications - up to 3 most recent administrations Medication Order MAR Action Action Date Dose Rate Site vitamin b-12 (Cyanocobalamin) inj 1,000 mcg 1,000 mcg, Intramuscular, [id number], First dose on Fri10/15/22 at 0930, Last dose on Fri04/26/25 at 0930, For 12 doses, Every 3-4 monthsIndications:S/P gastric bypass Given 09/02/2024 10:13 AM EST 1,000 mcg Arm Left Upper Given 06/02/2024 10:19 AM EST 1,000 mcg D eltoid Left Upper Given 01/02/2023 12:42 PM EDT 1,000 mcg D eltoid Left Upper documented in this encounter Advance Directives Documents on File Type Date Recorded Patient Water Gas Operator Saranya FIGUEROA 11/13/2020 POLST NASREEN SHAW ORDERS [...] Finley Spouse Health Care Agent Care Teams Rubber Printing Machine Operator Relationship Specialty Start Date End Date Luis Fernando Rojas MD [address] [facility] [place] [address] PCP - General Family Medicine 09/23/16 documented as of this encounter
--- OUTSIDE RECORDS SUMMARY | 2024-10-05 05:28 | External Medical Summary | Summary of Care ---
Author Name Unknown Organization [facility] Address [address] [place] [address] Phone [phone] Care Team Providers Care Unit Reactor Operator Name Role Phone Luis Fernando Rojas MD Primary Care Provider [phone] Reason for Referral * Evaluate & Treat - Unlimited Visits (Within 10 days (routine)) - Authorized Specialty Diagnoses / Procedures Referred By Contact Referred To Contact Vascular Surgery / Cardiovascular Surgery Diagnoses Malfunction of arteriovenous dialysis fistula, subsequent encounter Sameer Hassan MD [address] [place] [address] Phone: tel:[phone] fax:[phone] Referral ID Status Reason Start Date Expiration Date Visits Requested Visits Authorized [id number] Authorized Specialty Services Required 09/09/2024 999 999 [...] 09/09/2024 Telephone [place] [address] [place] [address] Sameer Hassan MD [address] [place] [address] [address] Referral Requested by Specialist Allergies Active Allergy [...] hemoglobin A1c goal of less than 7.0% ([facility]) Use 4 times daily with insulin 400 [...] 4 08/21/2024 8:06 AM EST 4 Active FPW EnteprisesTouch Verio In Vitro Strip (Glucose Blood) To test blood sugar 4 times daily. 400 Strip 1 04/22/2024 6:47 AM EDT 4 Active OneTouch Delica Lancets 33G To test blood sugar 4 times daily. 400 Each 1 04/22/2024 6:47 AM EDT 4 Active FPW EnteprisesTouch Verio w/Device Kit Use as directed. 1 [...] 1,000 mcgIndications:S/P gastric bypass 1000 mcg IM [id number] 10/15/2022 07/19/2025 Active vitamin b-12 (Cyanocobalamin) inj 1,000 mcgIndications:Morbid obesity with BMI of 40.0-44.9, adult (HCC),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 [id number] 10/17/2023 12/11/19 25 Active documented as of [...] 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 10/15/2022 MORFIN RESEARCH OTHER*[id number] 01/01/2022 S/P gastric bypass 01/01/2022 [address] [...] Insulin long-term use 11/19/20182018 Overview (05/20/2019): Duplicate adjunct faculty for medical terminology (current) [...] T-tube placement 04/16/2017 05/29/2017 [employer] Other*[id number] 04/13/2013 08/27/2016 Overview (04/13/2013): Study Title: Genomic Markers for Patients with Cardiovascular Disease Project # [id number] Paralegal: Siena Laws MD [phone] Hypertensive heart disease 03/25/2013 1 07/29/2016 Neuropathy, [...] CG/0.3 mL, 12 YRS AND ABOVE, IM ([facility]) 06/02/2024 HEPATITIS B VACCINE, RECOMB, 20 MCG/ML, ADULT (HEPLISAV-B) 09/05/2021,05/09/2021,04/04/2021,02/18 Hepatitis B, 20+ yrs 09/16/2018,04/14/2018,03/1104/11/2018 Pneumococcal Conjugate Vacci ne, 20-valent (Fvacnoh55) 06/22/2024,12/02/2023(Deferred: - pt states she's already received) [...] subclavianand axillary veins I called Kimmy at [phone] and spoke with Hina and she states [...] Description 09/21/2024 10:30 AM EST Home Visit [facility], [facility] [address] [facility] [place] [address] Heidi Garcia RN [address] [facility] [place] [address] 09/23/2024 10:50 AM EST Telemedicine Pharmacy, [place] [facility] [address] [place] [phone] [place] [address] [place] [address] 09/30/2024 11:00 AM EDT Office Visit Podiatry [facility] [address] [place] [phone] Calli Avila DPM [address] [place] [address] 11/30/2024 10:00 AM EDT Nurse Only Nutrition & Weight Management, [facility] [address] [place] [address] [place], Nurse Gi Nutrition [facility] [address] [place] [address] 12/09/2024 12:57 PM EDT Hospital Encounter OR [facility], Operating Room, [facility] - 4th Floor [address] [place] [phone] Himanshu Rivero, DO [address] [place] [address] 12/09/2024 12:57 PM EDT - 12/09/2024 1:38 PM EDT Surgery OR [facility], Operating Room, [facility] - 4th Floor [address] [place] [phone] Himanshu Rivero, DO [address] [place] [address] COLONOSCOPY FLEXIBLE PROXIMAL DIAGNOSTIC 12/21/2024 10:30 AM EDT Office Visit Gastroenterology, [facility] [address] [place] [address] Emi Queen CRNP [address] [place] [address] 03/10/2025 1:20 PM EDT Office Visit Dermatology, [place] [address] [phone] Joanne Parks PA-C [address] [place] [address] [place] [address] Scheduled Procedures Name Priority Associated Diagnoses Date/Ti [...] Medical Devices Implanted Type Area Solar Energy Specialist Device Identifier Shelf Expiration Date Model / Serial / Lot Coil Vortex 35 Pltinm [id number] - [id number] Implanted:Qty: 1 on 11/27/2021 by Sterling Cates MD at OR [facility] Right: Upper Arm [employer] : NEURO INTR [id number] 08/15/2024 [id number] Coil Vortex 35 Pltinm [id number] - [id number] Implanted:Qty: 1 on 11/27/2021 by Sterling Cates MD at OR [facility] Right: Upper Arm [employer] : NEURO INTR [id number] 08/15/2024 [id number] / [id number] Coil Vortex 35 Pltinm [id number] - [id number] Implanted:Qty: 1 on 11/27/2021 by Sterling Cates MD at OR [facility] Right: Upper Arm [employer] : NEURO INTR [id number] 08/15/2024 [id number] 1 / / [id number] Coil Vortex 35 Pltinm [id number] - [id number] Implanted:Qty: 1 on 11/27/2021 by Sterling Cates MD at OR [facility] Right: Upper Arm [employer] : NEURO INTR [id number] 05/16/2024 [id number] / / [id number] Azur 35 Detachable 5mm 11cm - [id number] Implanted:Qty: 1 on 03/19/2022 by Jose Devine MD at OR [facility] Right: Wrist [employer] [id number] 10/18/2025 [id number] / / [id number] Azur 35 Detachable 5mm 11cm - [id number] Implanted:Qty: 1 on 03/19/2022 by Jose Devine MD at OR [facility] Right: Wrist [employer] [id number] 06/19/2026 [id number] / / [id number] Mesh Flat Sheet 10x14 [id number] - [id number] Implanted:Qty: 1 on 12/11/2022 by Eros Dash MD at OR [facility] N/A: Abdomen CR BARD : DAVOL [id number] 06/17/2027 [id number] / / [id number] documented as of this encounter Visit Diagnoses [...] dialysis, with long-term current use of insulin ([facility]) S/P gastric bypass Bariatric surgery status ESRD (end stage renal disease) on dialysis ([facility]) End stage renal disease Recurrent ventral incisional hernia Incisional hernia without mention of obstruction or gangrene NO SHOW/FAILED TO KEEP APPOINTMENT- Primary Chronic diastolic heart failure ([facility])- Primary Chronic diastolic heart failure HTN, goal below 140/90 Unspecified essential hypertension Type 2 diabetes mellitus with hemoglobin A1c goal of less than 7.0% ([facility]) Hypothyroidism (acquired) Unspecified hypothyroidism Dyslipidemia, goal LDL below 100 Other and unspecified hyperlipidemia Major depressive disorder, single episode, moderate ([facility]) Major depressive disorder, single episode, moderate 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, with long-term current use of insulin ([facility]) Hyperparathyroidism, secondary renal ([facility]) Secondary hyperparathyroidism (of renal origin) End stage renal disease on dialysis ([facility]) End stage renal disease MINISTERIO on CPAP Obstructive sleep apnea (adult) (pediatric) Diarrhea, unspecified type Malfunction of arteriovenous dialysis fistula, subsequent encounter- Primary History of colonic polyps Personal history of colonic polyps Diarrhea documented in this encounter Advance Directives Documents on File Type Date Recorded Patient Utility Mechanic Expl salbadorgeneva HNERY 11/13/2020 [facility] ORDERS FOR LIFE-SUSTAINING TREATMENT [...] Agents on File Name Relationship Healthcare Agent [facility] Communication Zhen Finley Spouse Health Care Agent Care Teams Unit Reactor Operator Relationship Specialty Start Date End Date Luis Fernando Rojas MD [address] [address] PCP - General Family Medicine 09/23/16 documented as of this encounter
--- OUTSIDE RECORDS SUMMARY | 2024-10-05 05:29 | External Medical Summary | Summary of Care ---
Author Name Unknown Organization [facility] Address [address] [place] [address] Phone [phone] Care Team Providers Care Security Lead Name Role Phone Luis Fernando Rojas MD Primary Care Provider [phone] Reason for Visit * Reason Onset Date Comments Patient Assistance Program 08/26/2024 Baseleonora lar and humalog Encounter Details Date Type Department Care Team (Late st Contact Info) Description 08/26/2024 Telephone Pharmacy, [facility] [address] [place] [address] Vera Langston, [facility] [address] [place] [address] Patient Assistance Program (Basaglar and h... Allergies Active Allergy Reactions Criticality Noted Date Comments Salvador Inhibitors Other (Please comment),Cough High HyperKalemia documented as of this encounter (statuses as of 08/26/2024) Medications Melatonin 10 MG Tablet Take 12 [...] Replace every 14 days (supplied through [facility] 7 Each 3 05/17/20 21 Active [...] continues, call 911. 25 Tablet 11 04/26/20 Active Additional Information Patient not taking.Informant: Patient, [...] A1c goal of less than 7.0% ([facility]) Use 4 times daily with [...] 5 8:06 AM EST 03/20/20 24 Active QwiqqToPlay It Interactive In Vitro Strip (Glucose Blood) To test blood sugar 4 times daily. 400 Strip 1 4 6:47 AM EDT 04/20/20 24 Active Cell [employer]ance Systems Delica Lancets 33G To test blood sugar 4 times daily. 400 Each 1 4 6:47 AM EDT 04/20/20 24 Active Integral Vision w/Device Kit Use as directed. 1 Kit 4 6:47 AM EDT 04/20/20 24 Active buPROPion HCl ER (SR) 150 MG Oral Tablet Extended Release 12 Hour (Wellbutrin SR) Take 1 Tablet by mouth every evening. 90 Tablet 4 1:04 PM EST 06/02/20 24 Active Albuterol Sulfate 0.63 MG/3ML Inhalation [...] needed for Cough. 120 mL 1 07/15/20 Active Additional Information Patient not taking.Reported on 08/19/2024 Benzonatate 100 MG Oral Capsule (Tessalon Perles) Take 1 Capsule by mouth 3 times a day as needed for Cough. Do not cut, crush, or chew. 50 Capsule 1 07/15/20 Active Additional Information Patient not taking.Reported on [...] day 30 mL 4 08/26/19 25 Active Insulin Glargine Solostar 100 UNIT/ML Subcutaneous Solution Pen-injector (Basaglar KwikPen)Indicati ons:Type 2 diabetes mellitus with hemoglobin A1c goal of less than 7.0% (HCC) Inject 16 units subcutaneously every day. 30 mL 4 10/28/19 24 025 Discontin ued(Refil l) Insulin Lispro (1 Unit Dial) 100 UNIT/ML Subcutaneous Solution Pen-injector (HumaLOG KwikPen)Indicati ons:Type 2 diabetes mellitus with hemoglobin A1c goal of less than 7.0% (HCC) Inject 14 units with breakfast, 4 units with lunch and 16 units with supper + CF 1:25 over 150. Max dose of 45 units per day 30 mL 4 10/28/19 24 025 Discontin ued(Refil l) Hospital, Clinic, or Other Facility Administered Medication Ordered Dose Route Frequency Start Date End Date Status vitamin b-12 (Cyanocobalamin) inj 1,000 mcgIndications:S/P gastric bypass 1000 mcg IM [id number] 10/15/2022 07/19/2025 Active vitamin b-12 (Cyanocobalamin) inj 1,000 mcgIndications:Morbid obesity with BMI of 40.0-44.9, adult (HCC),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 [id number] 10/17/2023 12/11/19 25 Active documented as of this encounter (statuses as of 08/26/2024) Active Problems Problem Noted Date Diagnosed Date [...] 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 10/15/2022 MORFIN RESEARCH OTHER*[id number] 01/01/2022 S/P gastric bypass 01/01/2022 [address] [...] AM EDT): Gabapentin [address] [facility] Assessment & Plan (05/07/2021 11:11 AM [...] as of this encounter (statuses as of 08/26/2024) Resolved Problems Problem Noted Date Diagnosed Date [...] long-term use 11/19/20182018 Overview (05/20/2019): Duplicate superintendent terminal (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 insulin 11/19/2018 10/08/2022 [...] T-tube placement 04/16/2017 05/29/2017 [employer] Other*[id number] 04/13/2013 08/27/2016 Overview (04/13/2013): Study Title: Genomic Markers for Patients with Cardiovascular Disease Project # [id number] Truck Loader And Unloader: Siena Laws MD [phone] Hypertensive heart disease 03/25/2013 1 07/29/2016 Neuropathy, [...] as of this encounter (statuses as of 08/26/2024) Immunizations Name Administration Dates Next Due COVID-19 mRNA, LNP-s, No Pre serve, 2-Dose Series (Moderna) 04/09/2021,09/23/2020,08/19/2020 COVID-19, LNP-s, No Preserve , Espinoza-sucrose, Ages 12+ (Pfizer) 01/08/2022 COVID-19, MRNA-LNP, PF, 30 M CG/0.3 mL, 12 YRS AND ABOVE, IM ([facility]ER-Comirnaty) 06/02/2024 HEPATITIS B VACCINE, RECOMB, 20 MCG/ML, ADULT (HEPLISAV-B) 09/05/2021,05/09/2021,04/04/2021,02/18 Hepatitis B, 20+ yrs 09/16/2018,04/14/2018,03/1104/11/2018 Pneumococcal Conjugate Vacci ne, 20-valent (Njezmep24) 06/22/2024,12/02/2023(Deferred: - pt states she's already received) [...] Notes * Telephone Encounter - Vera Langston [facility] - 08/26/2024 7:13 AM EST Filled out and faxed re-enrollment forms for patient to continue to get Basaglar and humalog from [facility]. Escripts sent to [facility]. Received successful confirmation of fax. Forms scanned into chart. Vera Langston, PharmD Clinical Pharmacist Medication Therapy Disease Management 08/26/2024, 7:13 AM documented in this encounter Plan of Treatment Upcoming Encounters Date Type Department Care Team (Late st Contact Info) Description 09/02/2024 10:00 AM EST Nurse Only Nutrition & Weight Management, [facility] [address] [facility] [place] [address] [facility], Nurse Gi Nutrition [facility] [address] [facility] [place] [address] 09/09/2024 11:10 AM EST [address] [phone] [address] [place] [address] 09/21/2024 10:30 AM EST Home Visit [facility], [facility] [address] [place] [address] Heidi Garcia RN [address] [place] [address] 09/30/2024 11:00 AM EDT Office Visit Podiatry [facility] [address] [place] [phone] Calli Avila DPM [address] [place] [address] 12/09/2024 12:54 PM EDT Hospital Encounter OR [facility], Operating Room, [facility] - 4th Floor [address] [place] [phone] Himanshu Rivero, DO [address] [place] [address] 12/09/2024 12:54 PM EDT - 12/09/2024 1:35 PM EDT Surgery OR [facility], Operating Room, [facility] - 4th Floor [address] [place] [phone] Himanshu Rivero, DO [address] [place] [address] COLONOSCOPY FLEXIBLE PROXIMAL DIAGNOSTIC 12/21/2024 10:30 AM EDT Office Visit Gastroenterology, [facility] [address] [place] [address] Emi Queen CRNP [address] [place] [address] 03/10/2025 1:20 PM EDT Office Visit [facility]ermatologyS[facility]ney [address] [place] [phone] Joanne Parks PA-C [address] [place] [address] [place] [address] Scheduled Procedures Name Priority Associated Diagnoses Date/Ti me COLONOSCOPY FLEXIBLE PROXIMAL DIAGNOSTIC History of colonic polyps Diarrhea 12/09/2024 12:54 PM EDT Health Maintenance Due Date Last [...] encounter Medical Devices Implanted Type Area Manager Of Compensation Device Identifier Shelf Expiration Date Model / Serial / Lot Coil Vortex 35 Pltinm [id number] - [id number] Implanted:Qty: 1 on 11/27/2021 by Sterling Cates MD at OR [facility] Right: Upper Arm [employer] : NEURO INTR [id number] 08/15/2024 [id number] / / [id number] Coil Vortex 35 Pltinm [id number] - [id number] Implanted:Qty: 1 on 11/27/2021 by Sterling Cates MD at OR [facility] Right: Upper Arm [employer] : NEURO INTR [id number] 08/15/2024 [id number] / / [id number] Coil Vortex 35 Pltinm [id number] - [id number] Implanted:Qty: 1 on 11/27/2021 by Sterling Cates MD at OR [facility] Right: Upper Arm [employer] : NEURO INTR [id number] 08/15/2024 [id number] / / [id number] Coil Vortex 35 Pltinm [id number] - [id number] Implanted:Qty: 1 on 11/27/2021 by Sterling Cates MD at OR [facility] Right: Upper Arm [employer] : NEURO INTR [id number] 05/16/2024 [id number] / / [id number] Azur 35 Detachable 5mm 11cm - [id number] Implanted:Qty: 1 on 03/19/2022 by Jose Devine MD at OR [facility] Right: Wrist [employer] [id number] 10/18/2025 [id number] / / [id number] Azur 35 Detachable 5mm 11cm - [id number] Implanted:Qty: 1 on 03/19/2022 by Jose Devine MD at OR [facility] Right: Wrist [employer] [id number] 06/19/2026 [id number] / / [id number] Mesh Flat Sheet 10x14 [id number] - [id number] Implanted:Qty: 1 on 12/11/2022 by Eros Dash MD at OR [facility] N/A: Abdomen CR BARD : DAVOL [id number] 06/17/2027 [id number] / / [id number] documented as of this encounter Visit Diagnoses Diagnosis Marginal ulcer- Primary Gastrojejunal ulcer, unspecified as acute or chronic, without mention of hemorrhage, perforation, or obstruction ESRD (end stage renal disease) on dialysis ([facility]) End stage renal disease Hypertensive 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 congestive heart failure and stage 5 chronic kidney disease on chronic dialysis ([facility]) Acute posthemorrhagic anemia Type 2 diabetes mellitus 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 dialysis, with long-term current use of insulin ([facility]) Hypothyroidism (acquired) Unspecified hypothyroidism Malignant melanoma of right upper extremity ([facility]) Aortic atherosclerosis ([facility]) Atherosclerosis of aorta Diabetic polyneuropathy associated with type 2 diabetes mellitus ([facility]) Advanced care planning/counseling discussion- Primary Other specified counseling Hypertensive 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 congestive heart failure and stage 5 chronic kidney disease on chronic dialysis ([facility]) Presence of cardiac pacemaker Cardiac pacemaker in situ SSS (sick sinus syndrome) ([facility]) Sinoatrial node dysfunction MINISTERIO on CPAP Obstructive sleep apnea (adult) (pediatric) Hypothyroidism (acquired) Unspecified hypothyroidism Type 2 diabetes mellitus 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 dialysis, with long-term current use of insulin ([facility]) S/P gastric bypass Bariatric surgery status ESRD (end stage renal disease) on dialysis ([facility]) End stage renal disease Recurrent ventral incisional hernia Incisional hernia without mention of obstruction or gangrene NO SHOW/FAILED TO KEEP APPOINTMENT- Primary Chronic diastolic heart failure ([facility])- Primary Chronic diastolic heart failure HTN, goal below 140/90 Unspecified essential hypertension Type 2 diabetes mellitus with hemoglobin A1c goal of less than 7.0% ([facility]) Hypothyroidism (acquired) Unspecified hypothyroidism Dyslipidemia, goal LDL below 100 Other and unspecified hyperlipidemia Major depressive disorder, single episode, moderate ([facility]) Major depressive disorder, single episode, moderate 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, with long-term current use of insulin ([facility]) Hyperparathyroidism, secondary renal (HCC) Secondary hyperparathyroidism (of renal origin) End stage renal disease on dialysis (HCC) End stage renal disease MINISTERIO on CPAP Obstructive sleep apnea (adult) (pediatric) Diarrhea, unspecified type Type 2 diabetes mellitus with hemoglobin A1c goal of less than 7.0% ([facility]) History of colonic polyps Personal history of colonic polyps Diarrhea documented in this encounter Advance Directives Documents on File Type Date Recorded Patient Needle Process Felt Goods Supervisor Expl anation POLST 11/13/2020 POLST [place] [...] Name [facility] Zhen Finley Spouse Health Care Agent Care Teams Security Lead Relationship Specialty Start Date End Date Luis Fernando Rojas MD [address] [address] PCP - General Family Medicine 09/23/16 documented as of this encounter
--- OUTSIDE RECORDS SUMMARY | 2024-10-05 05:29 | External Medical Summary | Summary of Care ---
Author Name Unknown Organization [facility] Address [address] [place] [address] Phone [phone] Care Team Providers Care Education Rep Name Role Phone Luis Fernando Rojas MD Primary Care Provider [phone] Reason for Visit * Reason Onset Date Comments Patient Assistance Program 08/26/2024 Baseleonora lar and humalog Encounter Details Date Type Department Care Team (Late st Contact Info) Description 08/26/2024 Telephone Pharmacy, [facility] [address] [place] [address] Vera Langston, [facility] [address] [place] [address] Patient Assistance Program (Basaglar and h... Allergies [...] every 14 days (supplied through [facility] 7 Each 3 05/17/20 21 Active CPAP [...] 5 8:06 AM EST 03/20/20 24 Active [employer] In Vitro Strip (Glucose Blood) To test blood sugar 4 times daily. 400 Strip 1 4 6:47 AM EDT 04/20/20 24 Active Kues[employer] Delica Lancets 33G To test blood sugar 4 times daily. 400 Each 1 4 6:47 AM EDT 04/20/20 24 Active [employer] w/Device Kit Use as directed. 1 Kit [...] 1,000 mcgIndications:S/P gastric bypass 1000 mcg IM [id number] 10/15/2022 07/19/2025 Active vitamin b-12 (Cyanocobalamin) inj 1,000 mcgIndications:Morbid obesity with BMI of 40.0-44.9, adult (HCC),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 [id number] 10/17/2023 12/11/19 25 Active documented as of [...] 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 10/15/2022 [employer] OTHER*[id number] 01/01/2022 S/P gastric bypass 01/01/[address] [...] 8:45 AM EDT): Gabapentin 600 mg at [facility] Assessment & Plan (05/07/2021 11:11 AM EDT): [...] long-term use 11/19/20182018 Overview (05/20/2019): 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 [...] T-tube placement 04/16/2017 05/29/2017 [employer] Other*[id number] 04/13/2013 08/27/2016 Overview (04/13/2013): Study Title: Genomic Markers for Patients with Cardiovascular Disease Project # [id number] Advertiser: Siena Laws MD [phone] Hypertensive heart disease 03/25/2013 1 07/29/2016 Neuropathy, [...] yrs 09/16/2018,04/14/2018,03/1104/11/2018 Pneumococcal Conjugate Vacci ne, 20-valent ([id number]) 06/22/2024,12/02/2023(Deferred: - pt states she's already received) [...] Notes * Telephone Encounter - Vera Langston [facility] - 08/26/2024 7:13 AM EST Filled out and faxed re-enrollment forms for patient to continue to get Basaglar and humalog from [employer] [facility]. Escripts sent to [facility]. Received successful confirmation of fax. Forms scanned into chart. Vera Langston, PharmD Clinical Pharmacist Medication Therapy Disease Management 08/26/2024, 7:13 AM documented in this encounter Plan of Treatment Upcoming Encounters Date Type Department Care Team (Late st Contact Info) Description 09/02/2024 10:00 AM EST Nurse Only Nutrition & Weight Management, [facility] [address] [facility] [place] [address] [facility], Nurse Gi Nutrition [facility] [address] [facility] [place] [address] 09/09/2024 11:10 AM EST [address]med[address], [address] [phone] [address] [place] [address] 09/21/2024 10:30 AM EST [facility], [facility] [address] [place] [address] Heidi Garcia RN [address] [place] [address] 09/30/2024 11:00 AM EDT Office Visit Podiatry [facility] [address] [place] [phone] Calli Avila DPM [address] [place] [address] 12/09/2024 12:54 PM EDT Hospital Encounter OR [facility], Operating Room, [facility] - 4th Floor [address] [place] [phone] Himanshu Rivero, DO [address] [place] [address] 12/09/2024 12:54 PM EDT - 12/09/2024 1:35 PM EDT Surgery OR [facility], Operating Room, [facility] - 4th Floor [address] [place] [phone] Himanshu Rivero, DO [address] [place] [address] COLONOSCOPY FLEXIBLE PROXIMAL DIAGNOSTIC 12/21/2024 10:30 AM EDT Office Visit Gastroenterology, [facility] [address] [place] [address] Emi Queen CRNP [address] [place] [address] 03/10/2025 1:20 PM EDT Office Visit [facility] [address] [place] [phone] Joanne Parks PA-C [address] [place] [address] [place] [address] Scheduled Procedures Name Priority Associated Diagnoses Date/Ti [...] this encounter Medical Devices Implanted Type Area Cinetechnician Device Identifier Shelf Expiration Date Model / Serial / Lot Coil Vortex 35 Pltinm [id number] - [id number] Implanted:Qty: 1 on 11/27/2021 by Sterling Cates MD [facility] [place] [facility] Right: Upper Arm [employer] : NEURO INTR [id number] 08/15/2024 [id number] / / [id number] Coil Vortex 35 Pltinm [id number] - [id number] Implanted:Qty: 1 on 11/27/2021 by Sterling Cates MD [place] [facility] Right: Upper Arm [employer] : NEURO INTR [id number] 08/15/2024 [id number] / / [id number] Coil Vortex 35 Pltinm [id number] - [id number] Implanted:Qty: 1 on 11/27/2021 by Sterling Cates MD at [place] [facility] Right: Upper Arm [employer] : NEURO INTR [id number] 08/15/2024 [id number] / / [id number] Coil Vortex 35 Pltinm [id number] - [id number] Implanted:Qty: 1 on 11/27/2021 by Sterling Cates MD at [place] [facility] Right: Upper Arm [employer] : NEURO INTR [id number] 05/16/2024 [id number] / / [id number] Azur 35 Detachable 5mm 11cm - [id number] Implanted:Qty: 1 on 03/19/2022 by Jose Devine MD at [place] [facility] Right: Wrist [employer] [id number] 10/18/2025 [id number] / / [id number] Azur 35 Detachable 5mm 11cm - [id number] Implanted:Qty: 1 on 03/19/2022 by Jose Devine MD at [place] [facility] Right: Wrist [employer] [id number] 06/19/2026 [id number] / / [id number] Mesh Flat Sheet 10x14 [id number] - [id number] Implanted:Qty: 1 on 12/11/2022 by Eros Dash MD at [place] [facility] N/A: Abdomen CR BARD : DAVOL [id number] 06/17/2027 [id number] / / [id number] documented as of this encounter Visit Diagnoses Diagnosis Marginal ulcer- Primary Gastrojejunal ulcer, unspecified as acute or chronic, without mention of hemorrhage, perforation, or obstruction ESRD (end stage renal disease) on dialysis ([facility]) End stage renal disease Hypertensive 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 congestive heart failure and stage 5 chronic kidney disease on chronic dialysis ([facility]) Acute posthemorrhagic anemia Type 2 diabetes mellitus 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 dialysis, with long-term current use of insulin ([facility]) Hypothyroidism (acquired) Unspecified hypothyroidism Malignant melanoma of right upper extremity ([facility]) Aortic atherosclerosis ([facility]) Atherosclerosis of aorta Diabetic polyneuropathy associated with [...] insulin ([facility]) Hyperparathyroidism, secondary renal (HCC) Secondary hyperparathyroidism (of renal origin) End stage renal disease on dialysis (HCC) End stage renal disease MINISTERIO on CPAP Obstructive sleep apnea (adult) (pediatric) Diarrhea, unspecified type Type 2 diabetes mellitus with hemoglobin A1c goal of less than 7.0% ([facility]) History of colonic polyps Personal history of colonic polyps Diarrhea documented in this encounter Advance Directives Documents on File Type Date Recorded 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
--- OUTSIDE RECORDS SUMMARY | 2024-10-05 05:29 | External Medical Summary | Summary of Care ---
Author Name Unknown Organization [facility] Address [address] [place] [address] Phone [phone] Care Team Providers Care Optical Engineer Name Role Phone Luis Fernando Rojas MD Primary Care Provider [phone] Encounter Details Date Type Department Care Team (Late st Contact Info) Description 08/19/2024 10:00 AM EST [facility] [address] [place] [address] Heidi Garcia, RN [address] [place] [address] Allergies Active Allergy Reactions Criticality Noted Date [...] 7.0% ([facility]) Use 4 times daily with insulin 400 [...] morning and 1 Tablet before bedtime. Active Promethazine-Co deine 6.25-10 MG/5ML Oral Syrup (Phenergan and Codeine) Take 5 mL by mouth 4 times a day as needed for Cough. 120 mL 1 07/15/20 24 Active Additional Information Patient [...] day. 30 mL 4 10/28/19 24 025 Discontinu ed(Refill) Insulin Lispro (1 Unit Dial) 100 UNIT/ML Subcutaneous Solution Pen-injector (HumaLOG KwikPen)Indicat ions:Type 2 diabetes mellitus with hemoglobin A1c goal of less than 7.0% ([facility]) Inject 14 units with breakfast, 4 units with lunch and 16 units with supper + CF 1:25 over 150. Max dose of 45 units per day 30 mL 4 10/28/19 24 025 Discontinu ed(Refill) Amoxicillin 875 MG Oral Tablet Take 1 Tablet by mouth in the morning and 1 Tablet before bedtime. 08/16/19 25 025 Hospital, Clinic, or Other Facility Administered Medication Ordered Dose Route Frequency Start Date End Date Status vitamin b-12 (Cyanocobalamin) inj 1,000 mcgIndications:S/P gastric bypass 1000 mcg IM [id number] 10/15/2022 07/19/2025 Active vitamin b-12 (Cyanocobalamin) inj 1,000 mcgIndications:Morbid obesity with BMI of 40.0-44.9, adult (HCC),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 [id number] 10/17/2023 05/23/20 25 Active documented as of [...] 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 10/15/2022 [facility] OTHER*[id number] 01/01/2022 S/P gastric bypass 01/01/[address] [...] 8:45 AM EDT): Gabapentin 600 mg at [facility] Assessment & Plan (05/07/2021 11:11 AM [...] Insulin long-term use 11/19/20182018 Overview (05/20/2019): Duplicate senior living (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 insulin [...] T-tube placement 04/16/2017 05/29/2017 [employer] Other*[id number] 04/13/2013 08/27/2016 Overview (04/13/2013): Study Title: Genomic Markers for Patients with Cardiovascular Disease Project # [id number] Mechanical Insulator: Siena Laws MD [phone] Hypertensive heart disease 03/25/2013 1 07/29/2016 Neuropathy, diabetic 02/18/2013 019 Diastolic heart failure 12/22/2012/03/2017 Kidney disease, chronic, sta ge III (GFR [...] yrs 09/16/2018,04/14/2018,03/1104/11/2018 Pneumococcal Conjugate Vacci ne, 20-valent ([id number]) 06/22/2024,12/02/2023(Deferred: - pt states she's already received) [...] Sign Reading Time Taken Comments Blood Pressure 132/74 08/19/2024 10:36 AM EST Pulse 80 08/19/2024 10:36 AM EST Temperature 36.5 C (97.7 F) 08/19/2024 10:[address] Respiratory Rate 18 08/19/2024 10:36 AM EST Oxygen Saturation 97% 08/19/2024 10:36 AM EST Inhaled Oxygen Concentration - - Weight - - Height - - Body Mass Index - - documented in this encounter Functional Status * Are you deaf or do you have serious difficulty hearing? Answer Date of Assessment Author No 12/11/2022 6:51 PM Rbaia Granados RN * Are you blind or [...] in this encounter Progress Notes * Heidi Garcia, RN - 08/19/2024 10:16 AM EST Images from the original note were not included. Current Concerns: Pt seen for return RNCM visit Pt states she has diarrhea today She saw GI and was started on Colestipol prn She states she hasn't needed it since she went to the GI appt but is going to start using it today Has some cramping associated with the diarrhea Had 3 episodes of diarrhea this morning Was able to eat and has no issues drinking fluids On Amoxicillin 875mg twice a day x 1 week and Tramadol 50mg q 4 hrs prn for a tooth problem States she has seen a dentist and was prescribed this Plan is to get the tooth pulled but unsure when this will happen Also reports her blood sugars have been lower Getting readings in the 60's almost every night - states she eats a snack and two hours later is still low so eats something else until it comes up This has been happening the past 5 days Taking Basaglar 16 units every am - she did reduce it to 14 units yesterday and blood sugar was 68 last night Taking Humalog 10 units with breakfast, lunch and supper - states she counts carbs and sometimes will change it based on that TE sent to [facility] to notify of this change and for further recommendations Has a sore on right dorsal hand as well as 1st finger States she has had these sores for several weeks Saw derm and project manager industrial - nephro believes could be caused by poor blood flow through fistula The sores are painful and she has also been having pain at fistula. There is mild redness of distalpart of fistula She reports the fistula is still functioning and there have been no issues with her dialysis She was seen by dermatology and there was no evidence in problems with perfusion so plan is to monitor and if worsens pt is to be seen again Will send update to derm and nephro with pics Physical Exam: Physical Exam Constitutional: General: She [...] Systems: Review of Systems Constitutional: Negative. HENT: Positive for dental problem. Cardiovascular: Negative. Gastrointestinal: Positive for diarrhea. Genitourinary: Negative. Musculoskeletal: Positive for arthralgias. Skin: Positive for wound (right dorsal hand). Psychiatric/Behavioral: Negative. Care Plan Goal Progress: Orders Placed: No orders of the defined types were placed in this encounter. Medications Given: Care Gaps: Care Gaps Care gaps closed this contact: Education;Medications;Plan of Care (POC) (08/19/24 1100) Type of education: Clinical/disease (08/19/24 1100) Type of medication care gap: Medication adherence (08/19/241099) Type of plan of care (POC) care gap: Adjustment of plan of care (POC) and/or Integrated Care Plan (ICP);Education and review of exacerbation plan (08/19/241099) documented in this encounter Plan of Treatment Upcoming Encounters Date Type Department Care Team (Late st Contact Info) Description 09/02/2024 10:00 AM EST Nurse Only Nutrition & Weight Management, [facility] [address] [facility] [place] [address] [facility] [address] [facility] [place] [address] 09/09/2024 11:10 AM EST Telemedicine Pharmacy, [address] [phone] [place] [phone] [facility] [address] 09/21/2024 10:30 AM EST [facility] [address] [place] [address] Heidi Garcia RN [address] [facility] [place] [address] 09/30/2024 11:00 AM EDT Office Visit Podiatry [facility] [address] [place] [phone] Calli Avila DPM [address] [place] [address] 12/09/2024 12:54 PM EDT Hospital Encounter OR [facility], Operating Room, [facility] - 4th Floor [address] [place] [phone] Himanshu Rivero, DO [address] [place] [address] 12/09/2024 12:54 PM EDT - 12/09/2024 1:35 PM EDT Surgery OR [facility], Operating Room, [facility] - 4th Floor [address] [place] [phone] Himanshu Rivero, DO [address] [place] [address] COLONOSCOPY FLEXIBLE PROXIMAL DIAGNOSTIC 12/21/2024 10:30 AM EDT Office Visit Gastroenterology, [facility] [address] [place] [address] Emi Queen CRNP [address] [place] [address] 03/10/2025 1:20 PM EDT Office Visit [facility]erm[facility]ology[facility]ney [address] [place] [phone] Joanne Parks PA-C [address] [place] [address] [place] [address] Scheduled Procedures Name Priority Associated Diagnoses Date/Ti [...] this encounter Medical Devices Implanted Type Area It Trainer Device Identifier Shelf Expiration Date Model / Serial / Lot Coil Vortex 35 Pltinm [id number] - [id number] Implanted:Qty: 1 on 11/27/2021 by Sterling Cates MD [place] [facility] Right: Upper Arm [employer] : NEURO INTR [id number] 08/15/2024 [id number] 1 / / [id number] Coil Vortex 35 Pltinm [id number] - [id number] Implanted:Qty: 1 on 11/27/2021 by Sterling Cates MD at [place] [facility] Right: Upper Arm [employer] : NEURO INTR [id number] 08/15/2024 [id number] / / [id number] Coil Vortex 35 Pltinm [id number] - [id number] Implanted:Qty: 1 on 11/27/2021 by Sterling Cates MD at [place] [facility] Right: Upper Arm [employer] : NEURO INTR [id number] 08/15/2024 [id number] 1 / / [id number] Coil Vortex 35 Pltinm [id number] - [id number] Implanted:Qty: 1 on 11/27/2021 by Sterling Cates MD at [place] [facility] Right: Upper Arm [employer] : NEURO INTR [id number] 05/16/2024 [id number] / / [id number] Azur 35 Detachable 5mm 11cm - [id number] Implanted:Qty: 1 on 03/19/2022 by Jose Devine MD at [place] [facility] Right: Wrist [employer] [id number] 10/18/2025 [id number] / / [id number] Azur 35 Detachable 5mm 11cm - [id number] Implanted:Qty: 1 on 03/19/2022 by Jose Devine MD at [place] [facility] Right: Wrist [employer] [id number] 06/19/2026 [id number] / / [id number] Mesh Flat Sheet 10x14 [id number] - [id number] Implanted:Qty: 1 on 12/11/2022 by Eros Dash MD at [place] [facility] N/A: Abdomen CR BARD : ARELIS [id number] 06/17/2027 [id number] / / [id number] documented as of this encounter Advance Directives Documents on File Type Date Recorded Patient Industrial Pharmacist Saranya FIGUEROA 11/13/2020 POLST [facility] ORDERS [...] Finley Spouse Health Care Agent Care Teams Optical Engineer Relationship Specialty Start Date End Date Luis Fernando Rojas MD [facility] [place] [address] PCP - General Family Medicine 09/23/16 documented as of this encounter
--- OUTSIDE RECORDS SUMMARY | 2024-10-05 05:30 | External Medical Summary | Summary of Care ---
Author Name Unknown Organization [facility] Address [address] [place] [address] Phone [phone] Care Team Providers Care Structural Steel Fitter Name Role Phone Luis Fernando Rojas MD Primary Care Provider [phone] Reason for Visit * Reason Onset Date Comments Advice 08/19/2024 Encounter Details Date Type Department Care Team (Late st Contact Info) Description 08/19/2024 Telephone [facility], [facility] [address] [place] [address] Heidi Garcia, RN [address] [place] [address] Advice Allergies Active Allergy Reactions Criticality Noted Date Comments Salvador Inhibitors Other (Please comment),Cough High HyperKalemia documented as of this encounter (statuses as of 08/20/2024) Medications Melatonin 10 MG Tablet Take 12 [...] 5 3:02 PM EST 09/10/19 24 Active Insulin Glargine Solostar 100 UNIT/ML Subcutaneous Solution Pen-injector (Basagljimbo Zhou)Indicati ons:Type 2 diabetes mellitus with hemoglobin A1c goal of less than 7.0% (HCC) Inject 16 units subcutaneously every day. 30 mL 4 10/28/19 24 Active Additional Information Patient taking differently: 10 Units Subcutaneous Daily(AM), Inject 16 units subcutaneously every day., Informant: Patient, Reported on 08/19/2024 Insulin Lispro (1 Unit Dial) 100 UNIT/ML Subcutaneous Solution Pen-injector (HumaLOG KwikPen)Indicati ons:Type 2 diabetes mellitus with hemoglobin A1c goal of less than 7.0% (HCC) Inject 14 units with breakfast, 4 units with lunch and 16 units with supper + CF 1:25 over 150. Max dose of 45 units per day 30 mL 4 10/28/19 24 Active Additional Information Patient taking differently: 10 Units WITH MEALS, Inject 14 units with breakfast, 4 units with lunch and 16 units with supper + CF 1:25 over 150. Max dose of 45 units per day, Informant: Patient, Reported on 08/19/2024 Diclofenac Sodium 1 % External Gel (Voltaren) [...] 4 11:01 AM EST 03/20/20 24 Active [employer] In Vitro Strip (Glucose Blood) To test blood sugar 4 times daily. 400 Strip 1 4 6:47 AM EDT 04/20/20 24 Active Topio Delica Lancets 33G To test blood sugar 4 times daily. 400 Each 1 4 6:47 AM EDT 04/20/20 24 Active [employer] w/Device Kit Use as directed. 1 Kit [...] DAY IN THE MORNING 90 Tablet 1 08/05/19 25 Active Atorvastatin Calcium 40 MG [...] 1 Tablet before bedtime. 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 Magallanes. 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 [...] T-tube placement 04/16/2017 05/29/2017 [employer] Other*[id number] 04/13/2013 08/27/2016 Overview (04/13/2013): Study Title: Genomic Markers for Patients with Cardiovascular Disease Project # [id number] Milling Supervisor: Siena Laws MD [phone] Hypertensive heart disease 03/25/2013 1 07/29/2016 Neuropathy, [...] as of this encounter (statuses as of 08/20/2024) Immunizations Name Administration Dates Next Due COVID-19 mRNA, LNP-s, No Pre serve, 2-Dose Series (Moderna) 04/09/2021,09/23/2020,08/19/2020 COVID-19, LNP-s, No Preserve , Espinoza-sucrose, Ages 12+ (Pfizer) 01/08/2022 COVID-19, MRNA-LNP, PF, 30 M CG/0.3 mL, 12 YRS AND ABOVE, IM (PFIZER-Comirnat) 06/02/2024 HEPATITIS B VACCINE, RECOMB, 20 MCG/ML, ADULT (HEPLISAV-B) 09/05/2021,05/09/2021,04/04/2021,02/18 Hepatitis B, 20+ yrs 09/16/2018,04/14/2018,03/1104/11/2018 Pneumococcal Conjugate Vacci ne, 20-valent ([id number]) 06/22/2024,12/02/2023(Deferred: - pt states she's already received) [...] encounter Miscellaneous Notes * Telephone Encounter - Temitope Mckeon PA-C - 08/20/2024 8:40 AM EST Inboxologist Note: What about provider visit in [facility] ? Temitope Mckeon PA-C * Telephone Encounter - Joanne Farah OSA - 08/19/2024 5:25 PM EST Offered appt on Friday and Friday but pateint has Dialysis until and we do not have any nurse visits past 11:30 on either of these days. Scheduled patient for FridayAug.24. Is it ok that the patient waits until Friday to have cultures done? 08/19/2024 * Telephone Encounter - Temitope Mckeon PA-C - 08/19/2024 2:27 PM EST Please sched nv to have cultures done - one at each site Temitope Mckeon PA-C * Telephone Encounter - Joanne Parks PA-C - 08/19/2024 12:49 PM EST Please culture through pcp and make sure antibiotic is covering potential infection. Joanne DIAZ PA-C * Telephone Encounter - Heidi Garcia RN - 08/19/2024 10:56 AM EST Images from the original note were not included. Cody, Just wanted to send an update on sores of right hand. Pt feels her dorsal hand sores are more red then earlier this week and the sore on her 1st finger is more painful and swollen. Pics for reference. She has been using vaseline or antibiotic ointment and bandaids. Please advise if you have any further recommendations. FYI she has been on Amoxicillin 875mg twice a day since 08/16 - prescribed by her dentist for dentalproblem (chipped tooth) Thanks! documented in this encounter Plan of Treatment Upcoming Encounters Date Type Department Care Team (Late st Contact Info) Description 08/24/2024 9:30 AM EST Nurse Only Ancillary Department, [address] [facility] [address] [facility] [place] [phone] [place], Nurse [address] [place] [address] 09/02/2024 10:00 AM EST Nurse Only Nutrition & Weight Management, [facility] [address] [place] [address] [facility] Brianna trejo Nutrition [facility] [address] [place] [address] 09/09/2024 11:10 AM EST Telemedicine Pharmacy, [place] [address] [place] [phone] [place] [facility] [address] [facility] [place] [address] 09/21/2024 10:30 AM EST Home Visit [facility] [address] [place] [address] Heidi Garcia RN [address] [place] [address] 09/30/2024 11:00 AM EDT Office Visit Podiatry [facility] [address] [place] [phone] Calli Avila DPM [address] [place] [address] 12/09/2024 12:54 PM EDT Hospital Encounter OR [facility], Operating Room, [facility] - 4th Floor [address] [place] [phone] Himanshu Rivero, DO [address] [place] [address] 12/09/2024 12:54 PM EDT - 12/09/2024 1:35 PM EDT Surgery OR [facility], Operating Room, [facility] - 4th Floor [address] [place] [phone] Himanshu Rivero, DO [address] [place] [address] COLONOSCOPY FLEXIBLE PROXIMAL DIAGNOSTIC 12/21/2024 10:30 AM EDT Office Visit Gastroenterology, [facility] [address] [place] [address] Emi Queen CRNP [address] [place] [address] 03/10/2025 1:20 PM EDT Office Visit [place] [address] [facility] [place] [phone] Joanne Parks PA-C [address] [place] [address] [place] [address] Scheduled Procedures Name Priority Associated Diagnoses Date/Ti [...] this encounter Medical Devices Implanted Type Area Hotel Or Motel Manager Device Identifier Shelf Expiration Date Model / Serial / Lot Coil Vortex 35 Pltinm [id number] - [id number] Implanted:Qty: 1 on 11/27/2021 by Sterling Cates MD at OR [facility] Right: Upper Arm [employer] : NEURO INTR [id number] 08/15/2024 [id number] / / [id number] Coil Vortex 35 Pltinm [id number] - [id number] Implanted:Qty: 1 on 11/27/2021 by Sterling Cates MD at OR [facility] Right: Upper Arm [employer] : NEURO INTR [id number] 08/15/2024 [id number] / / [id number] Coil Vortex 35 Pltinm [id number] - [id number] Implanted:Qty: 1 on 11/27/2021 by Sterling Cates MD at OR [facility] Right: Upper Arm [employer] : NEURO INTR [id number] 08/15/2024 [id number] / / [id number] Coil Vortex 35 Pltinm [id number] - [id number] Implanted:Qty: 1 on 11/27/2021 by Sterling Cates MD at OR [facility] Right: Upper Arm [employer] : NEURO INTR [id number] 05/16/2024 [id number] / / [id number] Azur 35 Detachable 5mm 11cm - [id number] Implanted:Qty: 1 on 03/19/2022 by Jose Devine MD at OR [facility] Right: Wrist [employer] [id number] 10/18/2025 [id number] / / [id number] Azur 35 Detachable 5mm 11cm - [id number] Implanted:Qty: 1 on 03/19/2022 by Jose Devine MD at OR [facility] Right: Wrist [employer] [id number] 06/19/2026 [id number] / / [id number] Mesh Flat Sheet 10x14 [id number] - [id number] Implanted:Qty: 1 on 12/11/2022 by Eros Dash MD at OR [facility] N/A: Abdomen CR BARD : DAVOL [id number] 06/17/2027 [id number] / / [id number] documented as of this encounter Advance Directives Documents on File Type Date Recorded Patient Medical Scribe Expl anation POLST 11/13/2020 POLST PENNSYLVA VALERIA [...] File Name Relationship [facility] Communication Zhen Finley Spouse Health Care Agent Care Teams Structural Steel Fitter Relationship Specialty Start Date End Date Luis Fernando Rojas MD PCP - General Family Medicine 09/23/16 documented as of this encounter
--- OUTSIDE RECORDS SUMMARY | 2024-10-05 05:30 | External Medical Summary | Summary of Care ---
Author Name Unknown Organization [facility] Address [address] [place] [address] Phone [phone] Care Team Providers Care Qa Test Analyst Name Role Phone Luis Fernando Rojas MD Primary Care Provider [phone] Reason for Visit * Reason Onset Date Comments Advice 08/19/2024 Encounter Details Date Type Department Care Team (Late st Contact Info) Description 08/19/2024 Telephone [facility], [facility] [address] [place] [address] Heidi Garcia, RN [address] [place] [address] Advice Allergies Active Allergy Reactions Criticality Noted [...] 4 11:01 AM EST 03/20/20 24 Active [employer] In Vitro Strip (Glucose Blood) To test blood sugar 4 times daily. 400 Strip 1 4 6:47 AM EDT 04/20/20 24 Active [employer] Delica Lancets 33G To test blood sugar 4 times daily. 400 Each 1 4 6:47 AM EDT 04/20/20 24 Active [employer] w/Device Kit Use as directed. 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 [id number] 10/17/2023 12/11/19 25 Active documented as of [...] 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 10/15/2022 MORFIN RESEARCH OTHER*[id number] 01/01/2022 S/P gastric bypass 01/01/[address] [...] 8:45 AM EDT): Gabapentin 600 mg at [facility] Assessment & Plan (05/07/2021 11:11 [...] Insulin long-term use 11/19/20182018 Overview (05/20/2019): 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 11/19/2018 10/08/2022 Morbid [...] T-tube placement 04/16/2017 05/29/2017 [employer] Other*[id number] 04/13/2013 08/27/2016 Overview (04/13/2013): Study Title: Genomic Markers for Patients with Cardiovascular Disease Project # [id number] Rd Manager: Siena Laws MD [phone] Hypertensive heart disease 03/25/2013 1 07/29/2016 Neuropathy, [...] yrs 09/16/2018,04/14/2018,03/1104/11/2018 Pneumococcal Conjugate Vacci ne, 20-valent (Jijibft32) 06/22/2024,12/02/2023(Deferred: - pt states she's already received) [...] Miscellaneous Notes * Telephone Encounter - Joanne Farah OSA [...] Nurse Only Ancillary Department, [address] [place] [phone] [place] Nurse [address] [place] [address] 09/02/2024 10:00 AM EST Nurse Only Nutrition & Weight Management, [facility] [address] [place] [address] Boni Nurse Gi Nutrition [facility] [place] [address] 09/09/2024 11:10 AM EST Telemedicine Pharmacy, [place] [address] [phone] [place] [address] [address] 09/21/2024 10:30 AM EST Home Visit [facility], [facility] [address] [place] [address] Heidi Garcia, RN [address] [place] [address] 09/30/2024 11:00 AM EDT Office Visit Podiatry [facility] [address] [place] [phone] Calli Avila DPM [address] [place] [address] 12/09/2024 12:54 PM EDT Hospital Encounter OR [facility], Operating Room, [facility] - 4th Floor [address] [place] [phone] Himanshu Rivero DO [address] [place] [address] 12/09/2024 12:54 PM EDT - 12/09/2024 1:35 PM EDT Surgery OR [facility], Operating Room, [facility] - 4th Floor [address] [place] [phone] Himanshu Rivero DO [address] [place] [address] COLONOSCOPY FLEXIBLE PROXIMAL DIAGNOSTIC 12/21/2024 10:30 AM EDT Office Visit Gastroenterology, [facility] [address] [place] [address] Emi Queen CRNP [address] [place] [address] 03/10/2025 1:20 PM EDT Office Visit Dermatology, [place] [address] [facility] [address] [facility] [place] [phone] Joanne Parks PA-C [address] [place] [address] [place] [address] Scheduled Procedures Name Priority Associated Diagnoses Date/Ti [...] this encounter Medical Devices Implanted Type Area Outsole Compressor Device Identifier Shelf Expiration Date Model / Serial / Lot Coil Vortex 35 Pltinm [id number] - [id number] Implanted:Qty: 1 on 11/27/2021 by Sterling Cates MD at OR [facility] Right: Upper Arm [employer] : NEURO INTR [id number] 08/15/2024 [id number] / [id number] Coil Vortex 35 Pltinm [id number] - [id number] Implanted:Qty: 1 on 11/27/2021 by Sterling Cates MD at OR [facility] Right: Upper Arm [employer] : NEURO INTR [id number] 08/15/2024 [id number] / / [id number] Coil Vortex 35 Pltinm [id number] - [id number] Implanted:Qty: 1 on 11/27/2021 by Sterling Cates MD at OR [facility] Right: Upper Arm [employer] : NEURO INTR [id number] 08/15/2024 [id number] / / [id number] Coil Vortex 35 Pltinm [id number] - [id number] Implanted:Qty: 1 on 11/27/2021 by Sterling Cates MD at OR [facility] Right: Upper Arm [employer] : NEURO INTR [id number] 05/16/2024 [id number] / / [id number] Azur 35 Detachable 5mm 11cm - [id number] Implanted:Qty: 1 on 03/19/2022 by Jsoe Devine MD at OR [facility] Right: Wrist [employer] [id number] 10/18/2025 [id number] / / [id number] Azur 35 Detachable 5mm 11cm - [id number] Implanted:Qty: 1 on 03/19/2022 by Jose Devine MD at OR [facility] Right: Wrist [employer] [id number] 06/19/2026 [id number] / / [id number] Mesh Flat Sheet 10x14 [id number] - [id number] Implanted:Qty: 1 on 12/11/2022 by Eros Dash MD at OR [facility] N/A: Abdomen CR BARD : DAVOL [id number] 06/17/2027 [id number] / / [id number] documented as of this encounter Advance Directives Documents on File Type Date Recorded Patient Template Reproduction Technician Expl anation POLST 11/13/2020 POLST PENNSYLVA [...] Agents on File Name Relationship Healthcare Agent Relationspr p Communication Zhen Finley Spouse Health Care Agent Care Teams Qa Test Analyst Relationship Specialty Start Date End Date Luis Fernando Rojas MD PCP - General Family Medicine 09/23/16 documented as of this encounter
--- OUTSIDE RECORDS SUMMARY | 2024-10-05 05:30 | External Medical Summary | Summary of Care ---
Author Name Unknown Organization [facility] Address [address] [place] [address] Phone [phone] Care Team Providers Care Occupational Health And Safety Adviser Name Role Phone Luis Fernando Rojas MD Primary Care Provider [phone] Reason for Visit * Reason Comments Wound Recheck Patient here for wou nd cultures of hand, collected and sent to lab Encounter Details Date Type Department Care Team (Late st Contact Info) Description 08/24/2024 9:30 AM EST Nurse Only Ancillary Department, [place] Rao Addison [address] [facility] [address] [place], Nurse [address] [place], [place] [id number] Wound Recheck (Patient here for wound cult... Allergies Active Allergy Reactions Criticality Noted Date Comments Salvador Inhibitors Other (Please comment),Cough High HyperKalemia documented as of this encounter (statuses as of 08/24/2024) Medications Melatonin 10 MG Tablet Take 12 [...] directed. Replace every 14 days (supplied through [facility]) 7 Each 3 05/17/20 21 Active CPAP [...] 4 6:47 AM EDT 04/20/20 24 Active SolvAxisTouch Verio w/Device Kit Use as directed. 1 [...] hours as needed for Pain, Severe. 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 [id number] 10/17/2023 12/11/19 25 Active documented as of this encounter (statuses as of 08/24/2024) Active Problems Problem Noted Date Diagnosed Date [...] 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 10/15/2022 MORFIN RESEARCH OTHER*[id number] 01/01/2022 S/P gastric bypass 01/01/[address] [...] as of this encounter (statuses as of 08/24/2024) Resolved Problems Problem Noted Date Diagnosed Date [...] Insulin long-term use 11/19/20182018 Overview (05/20/2019): Duplicate long term (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 insulin 11/19/2018 10/08/2022 Morbid [...] T-tube placement 04/16/2017 05/29/2017 [employer] Other*[id number] 04/13/2013 08/27/2016 Overview (04/13/2013): Study Title: Genomic Markers for Patients with Cardiovascular Disease Project # [id number] Endbander: Siena Laws MD [phone] Hypertensive heart disease 03/25/2013 1 07/29/2016 Neuropathy, [...] as of this encounter (statuses as of 08/24/2024) Immunizations Name Administration Dates Next Due COVID-19 mRNA, LNP-s, No Pre serve, 2-Dose Series (Moderna) 04/09/2021,09/23/2020,08/19/2020 COVID-19, LNP-s, No Preserve , Espinoza-sucrose, Ages 12+ (Pfizer) 01/08/2022 COVID-19, MRNA-LNP, PF, 30 M CG/0.3 mL, 12 YRS AND ABOVE, IM ([facility] 06/02/2024 HEPATITIS B VACCINE, RECOMB, 20 MCG/ML, ADULT (HEPLISAV-B) 09/05/2021,05/09/2021,04/04/2021,02/18 Hepatitis B, 20+ yrs 09/16/2018,04/14/2018,03/1104/11/2018 Pneumococcal Conjugate Vacci ne, 20-valent ([id number]) 06/22/2024,12/02/2023(Deferred: - pt states she's already received) [...] Only Nutrition & Weight Management, [facility] [address] [facility] [place] [address] Nurse Biranna Plata [address] [place] [address] 09/09/2024 11:10 AM EST Telemedicine Pharmacy, [facility] [phone] [place] [facility] [address] [facility], [place] [address] 09/21/2024 10:30 AM EST [facility], [facility] [address] [place] [address] Heidi Garcia RN [address] [place] [address] 09/30/2024 11:00 AM EDT [facility] [address] [place] [phone] Calli Avila DPM [address] [place] [address] 12/09/2024 12:54 PM EDT Hospital Encounter OR GL, Operating Room, [facility] - 4th Floor [address] [place] [phone] Himanshu Rivero, DO [address] [place] [address] 12/09/2024 12:54 PM EDT - 12/09/2024 1:35 PM EDT Surgery OR [facility], Operating Room, [facility] - 4th Floor [address] [place] [phone] Himanshu Rivero, DO [address] [place] [address] COLONOSCOPY FLEXIBLE PROXIMAL DIAGNOSTIC 12/21/2024 10:30 AM EDT Office Visit Gastroenterology, [facility] [address] [place] [address] Emi Queen CRNP [address] [place] [address] 03/10/2025 1:20 PM EDT Office [facility]at[facility], [place] [facility] [address] [facility] [place] [phone] Joanne Parks PA-C [address] [place] [address] [place] [address] Pending Results Name Type Priority Associated Diagnoses Date /Time CULTURE, WOUND, SUPERFICIAL, AEROBIC Lab Routine Open wound of hand without foreign body, unspecified laterality, unspecified wound type, sequela 08/24/2024 9:52 AM EST Scheduled Orders Name Type Priority Associated Diagnoses Orde r Schedule CULTURE, WOUND, SUPERFICIAL, AEROBIC Lab Routine Open wound of hand without foreign body, unspecified laterality, unspecified wound type, sequela Expected: 08/24/2024, Expires: 08/24/2025 Scheduled Procedures Name Priority Associated Diagnoses Date/Ti [...] this encounter Medical Devices Implanted Type Area Human Capital Consultant Device Identifier Shelf Expiration Date Model / Serial / Lot Coil Vortex 35 Pltinm [id number] - [id number] Implanted:Qty: 1 on 11/27/2021 by Sterling Cates MD at OR [facility] Right: Upper Arm [employer] : NEURO INTR [id number] 08/15/2024 [id number] / [id number] Coil Vortex 35 Pltinm [id number] - [id number] Implanted:Qty: 1 on 11/27/2021 by Sterling Cates MD at OR [facility] Right: Upper Arm [employer] : NEURO INTR [id number] 08/15/2024 [id number] / / [id number] Coil Vortex 35 Pltinm [id number] - [id number] Implanted:Qty: 1 on 11/27/2021 by Sterling Cates MD at OR [facility] Right: Upper Arm [employer] : NEURO INTR [id number] 08/15/2024 [id number] / / [id number] Coil Vortex 35 Pltinm [id number] - [id number] Implanted:Qty: 1 on 11/27/2021 by Sterling Cates MD at OR [facility] Right: Upper Arm [employer] : NEURO INTR [id number] 05/16/2024 [id number] / / [id number] Azur 35 Detachable 5mm 11cm - [id number] Implanted:Qty: 1 on 03/19/2022 by Jose Devine MD at OR [facility] Right: Wrist [employer] [id number] 10/18/2025 [id number] / / [id number] Azur 35 Detachable 5mm 11cm - [id number] Implanted:Qty: 1 on 03/19/2022 by Jose Devine MD at OR [facility] Right: Wrist [employer] [id number] 06/19/2026 [id number] / / [id number] Mesh Flat Sheet 10x14 [id number] - [id number] Implanted:Qty: 1 on 12/11/2022 by Eros Dash MD at OR [facility] N/A: Abdomen CR BARD : DAVOL [id number] 06/17/2027 [id number] / / [id number] documented as of this encounter Visit Diagnoses [...] insulin ([facility]) S/P gastric bypass Bariatric surgery status ESRD (end stage renal disease) on dialysis ([facility]) End stage renal disease Recurrent ventral incisional hernia Incisional hernia without mention of obstruction or gangrene NO SHOW/FAILED TO KEEP APPOINTMENT- Primary Chronic diastolic heart failure ([facility])- Primary Chronic diastolic heart failure HTN, goal below 140/90 Unspecified essential hypertension Type 2 diabetes mellitus with hemoglobin A1c goal of less than 7.0% ([facility]) Hypothyroidism (acquired) Unspecified hypothyroidism Dyslipidemia, goal LDL below 100 Other and unspecified hyperlipidemia Major depressive disorder, single episode, moderate (HCC) Major depressive disorder, single episode, moderate 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, with long-term current use of insulin ([facility]) Hyperparathyroidism, secondary renal (HCC) Secondary hyperparathyroidism (of renal origin) End stage renal disease on dialysis (HCC) End stage renal disease MINISTERIO on CPAP Obstructive sleep apnea (adult) (pediatric) Diarrhea, unspecified type Open wound of hand without foreign body, unspecified laterality, unspecified wound type, sequela- Primary History of colonic polyps Personal history of colonic polyps Diarrhea documented in this encounter Advance Directives Documents on File Type Date Recorded Patient Acetone Button Paster Expl anation POL 11/13/2020 POLST NASREEN SHAW [...] Health Care Agent Care Teams Occupational Health And Safety Adviser Relationship Specialty Start Date End Date Luis Fernando Rojas MD [address] [facility] [place] [address] PCP - General Family Medicine 09/23/16 documented as of this encounter
--- OUTSIDE RECORDS SUMMARY | 2024-10-05 05:30 | External Medical Summary ---
Author Name Unknown Address Unknown Organization K01:[facility] - [address] [place] [address] Laboratory Report Ordering Provider Test Date Status MARIBELL BELTRAN 08/24/2024 09:52:10 Final Observation Date Value Abnormality Reference (Units ) Status Bacteria identified in Specimen by Culture 08/24/2024 09:52:10 Light growth normal cha Final Test: Culture, Wound, Superf icial, Aerobic
Specimen Source: Hand, Unspecified
Specimen Type: Superficial Wound
Specimen Date: 08/24/2024 0952
Result Date: 08/26/2024 1239
Result Status: Final result
Resulting Lab: [facility]
[address]
[place]

CULTURE

Light growth normal cha

null Performing Location [facility] - [address] [facility] [address]
--- OUTSIDE RECORDS SUMMARY | 2024-10-05 05:30 | External Medical Summary | Summary of Care ---
Author Name Unknown Organization [facility] Address [address] [place] [address] Phone [phone] Care Team Providers Care Executive Housekeeper Name Role Phone Luis Fernando Rojas MD Primary Care Provider [phone] Reason for Visit * Reason Onset Date Comments Advice 08/19/2024 Encounter Details Date Type Department Care Team (Late st Contact Info) Description 08/19/2024 Telephone [facility], [facility] [address] [place] [address] Heidi Garcia, RN [address] [place] [address] Advice Allergies Active Allergy Reactions Criticality Noted Date Comments Salvador Inhibitors Other (Please comment),Cough High HyperKalemia documented as of this encounter (statuses as of 08/23/2024) Medications Melatonin 10 MG Tablet Take 12 [...] 5 8:06 AM EST 03/20/20 24 Active [facility] Verio In Vitro Strip (Glucose Blood) To test blood sugar 4 times daily. 400 Strip 1 4 6:47 AM EDT 04/20/20 24 Active Trony Solar Delica Lancets 33G To test blood sugar 4 times daily. 400 Each 1 4 6:47 AM EDT 04/20/20 24 Active ArthaYantraTouch Linkage Biosciencesio w/Device Kit Use as directed. 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 Magallanes. Renae-Celina from [...] as of this encounter (statuses as of 08/23/2024) Resolved Problems Problem Noted Date Diagnosed Date [...] Insulin long-term use 11/19/20182018 Overview (05/20/2019): Duplicate buttermaker (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 insulin 11/19/2018 [...] T-tube placement 04/16/2017 05/29/2017 [employer] Other*[id number] 04/13/2013 08/27/2016 Overview (04/13/2013): Study Title: Genomic Markers for Patients with Cardiovascular Disease Project # [id number] Dry Roller: Siena Laws MD [phone] Hypertensive heart disease 03/25/2013 1 07/29/2016 Neuropathy, [...] as of this encounter (statuses as of 08/23/2024) Immunizations Name Administration Dates Next Due COVID-19 mRNA, LNP-s, No Pre serve, 2-Dose Series (Moderna) 04/09/2021,09/23/2020,08/19/2020 COVID-19, LNP-s, No Preserve , Espinoza-sucrose, Ages 12+ (Pfizer) 01/08/2022 COVID-19, MRNA-LNP, PF, 30 M CG/0.3 mL, 12 YRS AND ABOVE, IM ([facility]) 06/02/2024 HEPATITIS B VACCINE, RECOMB, 20 MCG/ML, ADULT (HEPLISAV-B) 09/05/2021,05/09/2021,04/04/2021,02/18 Hepatitis B, 20+ yrs 09/16/2018,04/14/2018,03/1104/11/2018 Pneumococcal Conjugate Vacci ne, 20-valent ([id number]) 06/22/2024,12/02/2023(Deferred: - pt states she's already received) [...] Telephone Encounter - Joanne Farah OSA - 08/23/2024 11:56 AM EST Just now seeing this as I was off on 08.20.2024. Patient scheduled for 08.24.2024 * Telephone Encounter - Temitope Mckeon PA-C - 08/20/2024 8:40 AM EST Inboxologist Note: What about provider visit in [facility] ? Temitope Mckeon PA-C * Telephone Encounter [...] AM EST Nurse Only Ancillary Department, [place] Addison [address] [place] [address] [place] [phone] [place] [facility] [place] [address] 09/02/2024 10:00 AM EST Nurse Only Nutrition & Weight Management, [facility] [address] [facility] [place] [address] [place], Nurse Gi Nutrition [facility] [address] [facility] [place] [address] 09/09/2024 11:10 AM EST Telemedicine Pharmacy, [place] [address] [facility] [place] [phone] [place] [facility] [address] [place], [place] [address] [address] 09/21/2024 10:30 AM EST Home Visit [facility] A at Home, [facility] [address] [facility] [place] [address] Heidi Garcia RN [address] [facility] [place] [address] 09/30/2024 11:00 AM EDT Office Visit Podiatry [facility] [address] [place] [phone] Calli Avila DPM [address] [place] [address] 12/09/2024 12:54 PM EDT Hospital Encounter OR [facility], Operating Room, [facility] - 4th Floor [address] [place] [phone] Himanshu Rivero, DO [address] [place] [address] 12/09/2024 12:54 PM EDT - 12/09/2024 1:35 PM EDT Surgery OR [facility], Operating Room, [facility] - 4th Floor [address] [facility] [place] [phone] Himanshu Rivero, [address] [place] [address] COLONOSCOPY FLEXIBLE PROXIMAL DIAGNOSTIC 12/21/2024 10:30 AM EDT Office Visit Gastroenterology, [facility] [address] [place] [address] Emi Queen CRNP [address] [place] [address] 03/10/2025 1:20 PM EDT Office Visit DermatologySidney [address] [place] [phone] Joanne Parks PA-C [address] [place] [address] [place] [address] Scheduled Procedures Name Priority Associated Diagnoses Date/Ti [...] this encounter Medical Devices Implanted Type Area Service Supervisor Device Identifier Shelf Expiration Date Model / Serial / Lot Coil Vortex 35 Pltinm [id number] - [id number] Implanted:Qty: 1 on 11/27/2021 by Sterling Cates MD at [place] [facility] Right: Upper Arm [employer] : NEURO INTR [id number] 08/15/2024 [id number] / / [id number] Coil Vortex 35 Pltinm [id number] - [id number] Implanted:Qty: 1 on 11/27/2021 by Sterling Cates MD at [place] [facility] Right: Upper Arm [employer] : NEURO INTR [id number] 08/15/2024 [id number] / / [id number] Coil Vortex 35 Pltinm [id number] - [id number] Implanted:Qty: 1 on 11/27/2021 by Sterling Cates MD at [place] [facility] Right: Upper Arm [employer] : NEURO INTR [id number] 08/15/2024 [id number] / / [id number] Coil Vortex 35 Pltinm [id number] - [id number] Implanted:Qty: 1 on 11/27/2021 by Sterling Cates MD at [place] [facility] Right: Upper Arm [employer] : NEURO INTR [id number] 05/16/2024 [id number] / / [id number] Azur 35 Detachable 5mm 11cm - [id number] Implanted:Qty: 1 on 03/19/2022 by Jose Devine MD at [place] [facility] Right: Wrist [employer] [id number] 10/18/2025 [id number] / / [id number] Azur 35 Detachable 5mm 11cm - [id number] Implanted:Qty: 1 on 03/19/2022 by Jose Devine MD at [place] [facility] Right: Wrist [employer] [id number] 06/19/2026 [id number] / / [id number] Mesh Flat Sheet 10x14 [id number] - [id number] Implanted:Qty: 1 on 12/11/2022 by Eros Dash MD at [place] [facility] N/A: Abdomen CR BARD : DAVOL [id number] 06/17/2027 [id number] / / [id number] documented as of this encounter Advance Directives Documents on File Type Date Recorded Patient Water Jet Loom Fixer Expl salbadorion POLST 11/13/2020 POLST [place] VALERIA ORDERS FOR [...] File Name Relationship Healthcare Agent [facility] p Communication Zhen Finley Spouse Health Care Agent Care Teams Executive Housekeeper Relationship Specialty Start Date End Date Luis Fernando Rojas MD PCP - General Family Medicine 09/23/16 documented as of this encounter
--- OUTSIDE RECORDS SUMMARY | 2024-10-05 05:31 | External Medical Summary | Summary of Care ---
Author Name Unknown Organization [facility] Address [address] [place] [address] Phone [phone] Care Team Providers Care Glue Maker Bone Name Role Phone Luis Fernando Rojas MD Primary Care Provider [phone] Reason for Visit * Reason Onset Date Comments Advice 08/19/2024 Encounter Details Date Type Department Care Team (Late st Contact Info) Description 08/19/2024 Telephone [facility], [facility] [address] [place] [address] Heidi Garcia, RN [address] [place] [address] Advice Allergies Active Allergy Reactions Criticality Noted Date Comments Salvador Inhibitors Other (Please comment),Cough High HyperKalemia documented as of this encounter (statuses as of 08/19/2024) Medications Melatonin 10 MG Tablet Take 12 [...] 4 11:01 AM EST 03/20/20 24 Active Smoltek ABToDeparting In Vitro Strip (Glucose Blood) To test blood sugar 4 times daily. 400 Strip 1 4 6:47 AM EDT 04/20/20 24 Active Visionary Fun Delica Lancets 33G To test blood sugar 4 times daily. 400 Each 1 4 6:47 AM EDT 04/20/20 24 Active Smoltek ABToWestWingio w/Device Kit Use as directed. 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 10/15/2022 [facility]EARCH OTHER*[id number] 01/01/2022 S/P gastric bypass 01/01/2022 [address] [...] 8:45 AM EDT): Gabapentin 600 mg at [facility] Assessment & Plan (05/07/2021 11:11 AM [...] as of this encounter (statuses as of 08/19/2024) Resolved Problems Problem Noted Date Diagnosed Date [...] Insulin long-term use 11/19/20182018 Overview (05/20/2019): 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 insulin 11/19/2018 10/08/2022 [...] T-tube placement 04/16/2017 05/29/2017 [employer] Other*[id number] 04/13/2013 08/27/2016 Overview (04/13/2013): Study Title: Genomic Markers for Patients with Cardiovascular Disease Project # [id number] Finishing Tunnel Operator: Siena Laws MD [phone] Hypertensive heart disease 03/25/2013 1 07/29/2016 Neuropathy, [...] as of this encounter (statuses as of 08/19/2024) Immunizations Name Administration Dates Next Due COVID-19 mRNA, LNP-s, No Pre serve, 2-Dose Series (Moderna) 04/09/2021,09/23/2020,08/19/2020 COVID-19, LNP-s, No Preserve , Espinoza-sucrose, Ages 12+ (Pfizer) 01/08/2022 COVID-19, MRNA-LNP, PF, 30 M CG/0.3 mL, 12 YRS AND ABOVE, IM (PFIZER-Comirnat) 06/02/2024 HEPATITIS B VACCINE, RECOMB, 20 MCG/ML, ADULT (HEPLISAV-B) 09/05/2021,05/09/2021,04/04/2021,02/18 Hepatitis B, 20+ yrs 09/16/2018,04/14/2018,03/1104/11/2018 Pneumococcal Conjugate Vacci ne, 20-valent ([id number]) 06/22/2024,12/02/2023(Deferred: - pt states she's already received) [...] Ancillary Department, [address] [place] [phone] [place] Nurse [address] [place] [address] 09/02/2024 10:00 AM EST Nurse Only Nutrition & Weight Management, [facility] [address] [place] [address] Boni Nurse Gi Nutrition [facility] [address] [facility] [place] [address] 09/09/2024 11:10 AM EST Telemedicine Pharmacy, [address] [place] [phone] [place] [address] [address] 09/21/2024 10:30 AM EST Home Visit [facility], [facility] [address] [place] [address] Heidi Garcia, RN [address] [place] [address] 09/30/2024 11:00 AM EDT Office Visit Podiatry [facility] [address] [place] [phone] Calli Avila DPM [address] [place] [address] 12/09/2024 12:54 PM EDT Hospital Encounter OR GL, Operating Room, [facility] - 4th Floor [address] [place] [phone] Himanshu Rivero DO [address] [place] [address] 12/09/2024 12:54 PM EDT - 12/09/2024 1:35 PM EDT Surgery OR GL, Operating Room, [facility] - 4th Floor [address] [place] [phone] Himanshu Rivero DO [address] [place] [address] COLONOSCOPY FLEXIBLE PROXIMAL DIAGNOSTIC 12/21/2024 10:30 AM EDT Office Visit Gastroenterology, [facility] [address] [place] [address] Emi Queen CRNP [address] [place] [address] 03/10/2025 1:20 PM EDT Office Visit Dermatology, [place] [address] [facility] [phone] Joanne Parks PA-C [address] [place] [address] [place] [address] Scheduled Procedures Name Priority Associated Diagnoses Date/Ti [...] this encounter Medical Devices Implanted Type Area Licensed Final Expense Agents Device Identifier Shelf Expiration Date Model / Serial / Lot Coil Vortex 35 Pltinm [id number] - [id number] Implanted:Qty: 1 on 11/27/2021 by Sterling Cates MD [place] [facility] [place]: Upper Arm [employer] : NEURO INTR [id number] 08/15/2024 [id number] / [id number] Coil Vortex 35 Pltinm [id number] - [id number] Implanted:Qty: 1 on 11/27/2021 by Sterling Cates MD [place] [facility] Right: Upper Arm [employer] : NEURO INTR [id number] 08/15/2024 [id number] / / [id number] Coil Vortex 35 Pltinm [id number] - [id number] Implanted:Qty: 1 on 11/27/2021 by Sterling Cates MD [place] [facility] Right: Upper Arm [employer] : NEURO INTR [id number] 08/15/2024 [id number] / / [id number] Coil Vortex 35 Pltinm [id number] - [id number] Implanted:Qty: 1 on 11/27/2021 by Sterling Cates MD [place] [facility] Right: Upper Arm [employer] : NEURO INTR [id number] 05/16/2024 [id number] / / [id number] Azur 35 Detachable 5mm 11cm - [id number] Implanted:Qty: 1 on 03/19/2022 by Jose Devine MD at OR [facility] Right: Wrist [employer] [id number] 10/18/2025 [id number] / / [id number] Azur 35 Detachable 5mm 11cm - [id number] Implanted:Qty: 1 on 03/19/2022 by Jose Devine MD [place] [facility] Right: Wrist [employer] [id number] 06/19/2026 [id number] / / [id number] Mesh Flat Sheet 10x14 [id number] - [id number] Implanted:Qty: 1 on 12/11/2022 by Eros Dash MD at OR [facility] N/A: Abdomen CR BARD : DAVOL [id number] 06/17/2027 [id number] / / [id number] documented as of this encounter Advance Directives Documents on File Type Date Recorded Patient Clerical Warehouseman Expl anation POLST 11/13/2020 POLST PENNSYLVA VALERIA [...] Finley Spouse Health Care Agent Care Teams Glue Maker Bone Relationship Specialty Start Date End Date Luis Fernando Rojas MD PCP - General Family Medicine 09/23/16 documented as of this encounter
--- OUTSIDE RECORDS SUMMARY | 2024-10-05 05:31 | External Medical Summary | Summary of Care ---
Author Name Unknown Organization [facility] Address [address] [place] [address] Phone [phone] Care Team Providers Care Supervisor Slate Splitting Name Role Phone Luis Fernando Rojas MD Primary Care Provider [phone] Reason for Visit * Reason Onset Date Comments [facility]: Maintenance 08/19/2024 Encounter Details Date Type Department Care Team (Late st Contact Info) Description 08/19/2024 Telephone [facility], [facility] [address] [place] [address] Heidi Garcia, RN [address] [place] [address] [facility]: Maintenance Allergies Active Allergy [...] 24 Active Additional Information Patient taking differently: 14 Units Subcutaneous Daily(AM), Inject 16 units subcutaneously [...] 4 11:01 AM EST 03/20/20 24 Active OneTouch Verio In Vitro Strip (Glucose Blood) To test blood sugar 4 times daily. 400 Strip 1 4 6:47 AM EDT 04/20/20 24 Active OneTouch Delica Lancets 33G To test blood sugar 4 times daily. 400 Each 1 4 6:47 AM EDT 04/20/20 24 Active rVueTouch Verio w/Device Kit Use as directed. 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 10/15/2022 [facility] RESEARCH OTHER*[id number] 01/01/2022 S/P gastric bypass 01/01/[address] [...] 8:45 AM EDT): Gabapentin 600 mg at [facility] Assessment & Plan (05/07/2021 11:11 [...] T-tube placement 04/16/2017 05/29/2017 [employer] Other*[id number] 04/13/2013 08/27/2016 Overview (04/13/2013): Study Title: Genomic Markers for Patients with Cardiovascular Disease Project # [id number] Instructor Programmable Controllers: Siena Laws MD [phone] Hypertensive heart disease 03/25/2013 1 07/29/2016 Neuropathy, [...] yrs 09/16/2018,04/14/2018,03/1104/11/2018 Pneumococcal Conjugate Vacci ne, 20-valent ([id number]) 06/22/2024,12/02/2023(Deferred: - pt states she's already received) [...] Miscellaneous Notes * Telephone Encounter - Vera Langston, [facility] - 08/19/2024 10:51 AM EST Teams messaged with Heidi and set up patient for a video visit this afternoon to further evaluate. Vera Langston, PharmD, BCACP Clinical Pharmacist Medication Therapy Disease Management 08/19/2024, 10:51 AM * Telephone Encounter - Heidi Garcia, RN - 08/19/2024 10:28 AM EST Pt reports she has been having issues with low blood sugar at night Getting readings in the 60's almost every [...] sometimes will change it based on that She is requesting further recommendations. Can you please reach out to her? Thank you! documented in this encounter Plan of Treatment Upcoming Encounters Date Type Department Care Team (Late st Contact Info) Description 09/02/2024 10:00 AM EST Nurse Only Nutrition & Weight Management, [facility] [address] [facility] [place] [address] [facility] 132 [facility] [place] [address] 09/09/2024 11:10 AM EST Telemedicine Pharmacy, Sidney Krishna [address] [facility] [place] [phone] [place] [facility] [address] [facility] [place] [address] 09/21/2024 10:30 AM EST Home Visit [facility], [facility] [address] [facility] [place] [address] Heidi Garcia, RN [address] [place] [address] 09/30/2024 11:00 AM EDT Office Visit Podiatry [facility] [address] [place] [address] Calli Avila DPM [address] [place] [address] 12/09/2024 12:54 PM EDT Hospital Encounter OR [facility], Operating Room, [facility] - 4th Floor [address] [facility] [place] [phone] Himanshu Rivero, DO [address] [place] [address] 12/09/2024 12:54 PM EDT - 12/09/2024 1:35 PM EDT Surgery OR [facility], Operating Room, [facility] - 4th Floor [address] [place] [phone] Himanshu Rivero, [address] [place] [address] COLONOSCOPY FLEXIBLE PROXIMAL DIAGNOSTIC 12/21/2024 10:30 AM EDT Office Visit Gastroenterology, [facility] [address] [place] [address] Emi Queen CRNP [address] [place] [address] 03/10/2025 1:20 PM EDT Office Visit Dermatology, [place] Krishna [address] [place] [phone] Joanne Parks PA-C [address] [place] [address] [place] [address] Scheduled Procedures Name Priority Associated Diagnoses Date/Ti [...] this encounter Medical Devices Implanted Type Area Instrument Technician Device Identifier Shelf Expiration Date Model / Serial / Lot Coil Vortex 35 Pltinm [id number] - [id number] Implanted:Qty: 1 on 11/27/2021 by Sterling Cates MD at [place] [facility] Right: Upper Arm [employer] : NEURO INTR [id number] 08/15/2024 [id number] / [id number] Coil Vortex 35 Pltinm [id number] - [id number] Implanted:Qty: 1 on 11/27/2021 by Sterling Cates MD at OR [facility] Right: Upper Arm [employer] : NEURO INTR [id number] 08/15/2024 [id number] / / [id number] Coil Vortex 35 Pltinm [id number] - [id number] Implanted:Qty: 1 on 11/27/2021 by Sterling Cates MD at OR [facility] Right: Upper Arm [employer] : NEURO INTR [id number] 08/15/2024 [id number] / [id number] Coil Vortex 35 Pltinm [id number] - [id number] Implanted:Qty: 1 on 11/27/2021 by Sterling Cates MD at OR [facility] Right: Upper Arm [employer] : NEURO INTR [id number] 05/16/2024 [id number] / [id number] Azur 35 Detachable 5mm 11cm - [id number] Implanted:Qty: 1 on 03/19/2022 by Jose Devine MD at OR [facility] Right: Wrist [employer] [id number] 10/18/2025 [id number] / / [id number] Azur 35 Detachable 5mm 11cm - [id number] Implanted:Qty: 1 on 03/19/2022 by Jose Devine MD at OR [facility] Right: Wrist [employer] [id number] 06/19/2026 [id number] / / [id number] Mesh Flat Sheet 10x14 [id number] - [id number] Implanted:Qty: 1 on 12/11/2022 by Eros Dash MD at OR [facility] N/A: Abdomen CR BARD : DAVOL [id number] 06/17/2027 [id number] / / [id number] documented as of this encounter Advance Directives Documents on File Type Date Recorded Patient Plasterer Tender Expl anation POLST 11/13/2020 POLST PENNSYLVA VALERIA [...] Finley Spouse Health Care Agent Care Teams Supervisor Slate Splitting Relationship Specialty Start Date End Date Luis Fernando Rojas MD PCP - General Family Medicine 09/23/16 documented as of this encounter
--- OUTSIDE RECORDS SUMMARY | 2024-10-05 05:31 | External Medical Summary | Summary of Care ---
Author Name Unknown Organization [facility] Address [address] [place] [address] Phone [phone] Care Team Providers Care Blending Operator Name Role Phone Luis Fernando Rojas MD Primary Care Provider [phone] Reason for Visit * Reason Comments Dosage Adjustment In Person (Anticoag Cl inic) Diabetes Follow-Up Encounter Details Date Type Department Care Team (Late st Contact Info) Description 08/19/2024 1:30 PM EST Telemedicine Pharmacy, [facility] [address] [place] [address] [facility] [address] [place] [address] Type 2 diabetes mellitus with hemoglobin A1c goal of less than 7.0% ([facility])* Allergies Active Allergy Reactions Criticality [...] every 14 days (supplied through [facility]) 7 Each 3 05/17/20 21 Active CPAP [...] 4 6:47 AM EDT 04/20/20 24 Active Autobook NowTouch Verio w/Device Kit Use as directed. 1 [...] 1,000 mcgIndications:S/P gastric bypass 1000 mcg IM [id number] 10/15/2022 07/19/2025 Active vitamin b-12 (Cyanocobalamin) inj 1,000 mcgIndications:Morbid obesity with BMI of 40.0-44.9, adult (HCC),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 [id number] 10/17/2023 12/11/19 25 Active documented as of [...] 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 10/15/2022 [facility] OTHER*[id number] 01/01/2022 S/P gastric bypass 01/01/[address] [...] hyperkalemia. Avoid use. Hyperparathyroidism, secondary renal 05/21/2018 MINISTEROI on CPAP 05/21/2018 Assessment & Plan (03/23/2024 [...] 8:45 AM EDT): Gabapentin 600 mg at [facility] Assessment & Plan (05/07/2021 11:11 AM [...] T-tube placement 04/16/2017 05/29/2017 [employer] Other*[id number] 04/13/2013 08/27/2016 Overview (04/13/2013): Study Title: Genomic Markers for Patients with Cardiovascular Disease Project # [id number] Sizer Machine: Siena Laws MD [phone] Hypertensive heart disease 03/25/2013 1 07/29/2016 Neuropathy, [...] CG/0.3 mL, 12 YRS AND ABOVE, IM [facility] 06/02/2024 HEPATITIS B VACCINE, RECOMB, 20 MCG/ML, ADULT (HEPLISAV-B) 09/05/2021,05/09/2021,04/04/2021,02/18 Hepatitis B, 20+ yrs 09/16/2018,04/14/2018,03/1104/11/2018 Pneumococcal Conjugate Vacci ne, 20-valent ([id number]) 06/22/2024,12/02/2023(Deferred: - pt states she's already received) [...] in this encounter Progress Notes * Vera Langston, [facility] - 08/19/2024 1:28 PM EST Images from the original note were not included. Patient location: HOME. I was in a hospital or clinic location. After connecting through [employer],patient was verified with two unique identifiers. Patient (or authorized legal contact center representative) was then informed that this was [...] return diabetic visit. DIABETES: Current diabetic medications: Basaglar 14 units daily Humalog 10 units with breakfast, lunch and supper; sometimes varies Medication Injection Site: Abdomen Lifestyle: Diet: unchanged Glucose Review/SMBG: Readings obtained from patient device Hypoglycemia: Does your blood sugar go below 70 mg/dL? Yes, see above Hyperglycemia symptoms present: none Recent Labs Units 12/12/22 0718 HEMOGLOBIN A1C - [facility] % 7.8* Recent Labs Units 12/19/22 0756 12/18/22 0709 12/17/22 0659 ESTIMATED GLOMERULAR FILTRATION RATE - [facility] mL/min 11* 8* 11* CREATININE - [facility] mg/dL 4.4* 5.9* 4.3* HYPERTENSION: Patient on ACEi/ARB: no, allergic BP Readings from Last 3 Encounters: 08/19/24 132/74 07/15/24 124/24 07/07/24 130/64 Blood pressure at goal: yes HEALTH MAINTENANCE REVIEW: Health Maintenance Due Topic Date Due TSH 01/23/2023 Mammogram 07/08/2024 Depression Monitoring 08/14/2024 ASSESSMENT & PLAN: ICD-10-CM 1. Type 2 diabetes mellitus with hemoglobin A1c goal of less than 7.0% ([facility]) E11.9 Considerations: - dialysis MWF --> Tues/Thurs appts preferred - obtaining basaglar and humalog from [facility] jennifer supplied by [facility] Medical BG Readings - Blood sugars uncontrolled. Struggling with low blood sugars, but rising with PM meal and snack. Medications - Reviewed current regimen, patient is making her own adjustments on her insulin doses "based on carbs". Advised that whatever dose she determines is appopriate for supper, she is to add 2 units to it. Will further decrease basaglar, as her low blood sugars are between meals and overnight. Diet, Exercise, Lifestyle - No significant lifestyle changes since last visit. Discussed with patient. Patient is agreeable to SMBG with jennifer time(s) daily. Patient aware to contact clinic if any hypoglycemia before next visit. MEDICATION CHANGES: yes, see below; preferred pharmacy: [facility] Medications: DEC Basaglar 10 units daily INC Humalog 10 units with breakfast, lunch and + 2 units supper; sometimes varies FOLLOW UP: Return to clinic in 3 weeks 09/09/2024 I spent a total of 30-39 minutes (exact time 30 mins) on the date of service in preparation, delivery, and documentation of the care provided to Candi Finley excluding any time spent in the performance of separately billed services. Vera Langston [facility] Clinical Pharmacist - Satellite Dish Technician Medication Therapy [facility] 08/19/2024, 1:28 PM documented in this encounter Plan of Treatment Upcoming Encounters Date Type Department Care Team (Late st Contact Info) Description 08/24/2024 9:30 AM EST Nurse Only Ancillary Department, [address] [place] [phone] [place] [address] 09/02/2024 10:00 AM EST Nurse Only Nutrition & Weight Management, [facility] [address] [facility] [place] [address] Nurse Brianna Plata [address] [facility] [place] [address] 09/09/2024 11:10 AM EST Telemedicine Pharmacy, [address] [place] [phone] [facility] [address] 09/21/2024 10:30 AM EST Home Visit [facility], [facility] [address] [place], [place] [address] Heidi Garcia, RN [address] [place], [place] [address] 09/30/2024 11:00 AM EDT Office Visit Podiatry [facility] [address] [place] [phone] Calli Avila DPM [address] [place] [address] 12/09/2024 12:54 PM EDT Hospital Encounter OR [facility], Operating Room, [facility] - 4th Floor [address] [place] [phone] Himanshu Rivero, DO [address] [place] [address] 12/09/2024 12:54 PM EDT - 12/09/2024 1:35 PM EDT Surgery OR [facility], Operating Room, [facility] - 4th Floor [address] [place] [phone] Himanshu Rivero, DO [address] [place] [address] COLONOSCOPY FLEXIBLE PROXIMAL DIAGNOSTIC 12/21/2024 10:30 AM EDT Office Visit Gastroenterology, [facility] [address] [place] [address] Emi Queen CRNP [address] [place] [address] 03/10/2025 1:20 PM EDT Office [address] [place] [phone] Joanne Parks PA-C [address] [place] [address] [place] [address] Scheduled Procedures Name Priority Associated Diagnoses Date/Ti [...] this encounter Medical Devices Implanted Type Area Rolling Chair Pusher Device Identifier Shelf Expiration Date Model / Serial / Lot Coil Vortex 35 Pltinm [id number] - [id number] Implanted:Qty: 1 on 11/27/2021 by Sterling Cates MD [place] [facility] Right: Upper Arm [employer] : NEURO INTR [id number] 08/15/2024 [id number] / / [id number] Coil Vortex 35 Pltinm [id number] - [id number] Implanted:Qty: 1 on 11/27/2021 by Sterling Cates MD at [place] [facility] Right: Upper Arm [employer] : NEURO INTR [id number] 08/15/2024 [id number] / / [id number] Coil Vortex 35 Pltinm [id number] - [id number] Implanted:Qty: 1 on 11/27/2021 by Sterling Cates MD at [place] [facility] Right: Upper Arm [employer] : NEURO INTR [id number] 08/15/2024 [id number] / / [id number] Coil Vortex 35 Pltinm [id number] - [id number] Implanted:Qty: 1 on 11/27/2021 by Sterling Cates MD at [place] [facility] Right: Upper Arm [employer] : NEURO INTR [id number] 05/16/2024 [id number] / / [id number] Azur 35 Detachable 5mm 11cm - [id number] Implanted:Qty: 1 on 03/19/2022 by Jose Devine MD at [place] [facility] Right: Wrist [employer] [id number] 10/18/2025 [id number] / / [id number] Azur 35 Detachable 5mm 11cm - [id number] Implanted:Qty: 1 on 03/19/2022 by Jose Devine MD at [place] [facility] Right: Wrist [employer] [id number] 06/19/2026 [id number] / / [id number] Mesh Flat Sheet 10x14 [id number] - [id number] Implanted:Qty: 1 on 12/11/2022 by Eros Dash MD at [place] [facility] N/A: Abdomen CR BARD : DAVOL [id number] 06/17/2027 [id number] / / [id number] documented as of this encounter Visit Diagnoses Diagnosis Marginal ulcer- Primary Gastrojejunal ulcer, unspecified as acute or chronic, without mention of hemorrhage, perforation, or obstruction ESRD (end stage renal disease) on dialysis ([facility]) End stage renal disease Hypertensive 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 congestive heart failure and stage 5 chronic kidney disease on chronic dialysis ([facility]) Acute posthemorrhagic anemia Type 2 diabetes mellitus 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 dialysis, with long-term current use of insulin ([facility]) Hypothyroidism (acquired) Unspecified hypothyroidism Malignant melanoma of right upper extremity ([facility]) Aortic atherosclerosis ([facility]) Atherosclerosis of aorta Diabetic polyneuropathy associated with type 2 diabetes mellitus ([facility]) Advanced care planning/counseling discussion- Primary Other specified counseling Hypertensive 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 congestive heart failure and stage 5 chronic kidney disease on chronic dialysis ([facility]) Presence of cardiac pacemaker Cardiac pacemaker in situ SSS (sick sinus syndrome) ([facility]) Sinoatrial node dysfunction MINISTERIO on CPAP Obstructive sleep apnea (adult) (pediatric) Hypothyroidism (acquired) Unspecified hypothyroidism Type 2 diabetes mellitus 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 dialysis, with long-term current use of insulin ([facility]) S/P gastric bypass Bariatric surgery status ESRD (end stage renal disease) on dialysis ([facility]) End stage renal disease Recurrent [...] Documents on File Type Date Recorded Patient Piano And Organ Refinisher Expl anation POL 11/13/2020 POLST FRAGAAlo VALERIA ORDERS FOR LIFE-SUSTAINING TREATMENT * Full [...] Agents on File Name Relationship Healthcare Agent [facility] p Communication Zhen Finley Spouse Health Care Agent Care Teams Blending Operator Relationship Specialty Start Date End Date Luis Fernando Rojas MD PCP - General Family Medicine 09/23/16 documented as of this encounter
--- OUTSIDE RECORDS SUMMARY | 2024-10-05 05:31 | External Medical Summary | Summary of Care ---
Author Name Unknown Organization [facility] Address [address] [place] [address] Phone [phone] Care Team Providers Care Garage Door Installer Name Role Phone Luis Fernando Rojas MD Primary Care Provider [phone] Encounter Details Date Type Department Care Team (Latest Contact Info) Description 08/10/2024 2:59 PM EST - 08/10/2024 11:59 PM EST Hospital Encounter Radiology Film File [address] [place] [address] Arrived Discharge Disposition: Home - Self Care Allergies Active Allergy Reactions Criticality Noted Date Comments Salvador Inhibitors Other (Please comment),Cough High HyperKalemia documented as of this encounter (statuses as of 08/11/2024) Medications Melatonin 10 MG Tablet Take 12 [...] 45 units per day 30 mL 10/28/19 24 Active Diclofenac Sodium 1 % [...] 4 11:01 AM EST 03/20/20 24 Active BestVendorTouch Verio In Vitro Strip (Glucose Blood) To test blood sugar 4 times daily. 400 Strip 1 4 6:47 AM EDT 04/20/20 24 Active BestVendorToTrustID Lancets 33G To test blood sugar 4 times daily. 400 Each 1 4 6:47 AM EDT 04/20/20 24 Active BestVendorToSyncbak w/Device Kit Use as directed. 1 Kit [...] Cough. 120 mL 1 07/15/20 24 Active Benzonatate 100 MG Oral Capsule (Tessalon Perles) Take 1 Capsule by mouth 3 times a day as needed for Cough. Do not cut, crush, or chew. 50 Capsule 1 07/15/20 24 Active Gabapentin 300 MG Oral Capsule [...] if needed for diarrhea 180 Tablet 3 08/10/19 25 Active Hospital, Clinic, or Other Facility Administered Medication Ordered Dose Route Frequency Start Date End Date Status vitamin b-12 (Cyanocobalamin) inj 1,000 mcgIndications:S/P gastric bypass 1000 mcg IM [id number] 10/15/2022 07/19/2025 Active vitamin b-12 (Cyanocobalamin) inj 1,000 mcgIndications:Morbid obesity with BMI of 40.0-44.9, adult (HCC),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 [id number] 10/17/2023 12/11/19 25 Active documented as of this encounter (statuses as of 08/11/2024) Active Problems Problem Noted Date Diagnosed Date [...] 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 10/15/2022 [facility] OTHER*[id number] 01/01/2022 S/P gastric bypass 01/01/[address] [...] 8:45 AM EDT): Gabapentin 600 mg at [facility] Assessment & Plan (05/07/2021 11:11 AM EDT): [...] as of this encounter (statuses as of 08/11/2024) Resolved Problems Problem Noted Date Diagnosed Date [...] long-term use 11/19/20182018 Overview (05/20/2019): Duplicate manager intermediate (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 insulin [...] T-tube placement 04/16/2017 05/29/2017 [employer] Other*[id number] 04/13/2013 08/27/2016 Overview (04/13/2013): Study Title: Genomic Markers for Patients with Cardiovascular Disease Project # [id number] Palletizer Operator: Siena Laws MD [phone] Hypertensive heart disease 03/25/2013 1 07/29/2016 Neuropathy, [...] as of this encounter (statuses as of 08/11/2024) Immunizations Name Administration Dates Next Due COVID-19 mRNA, LNP-s, No Pre serve, 2-Dose Series (Moderna) 04/09/2021,09/23/2020,08/19/2020 COVID-19, LNP-s, No Preserve , Espinoza-sucrose, Ages 12+ (Pfizer) 01/08/2022 COVID-19, MRNA-LNP, PF, 30 M CG/0.3 mL, 12 YRS AND ABOVE, IM (PFIZER-Comirnaty) 06/02/2024 HEPATITIS B VACCINE, RECOMB, 20 MCG/ML, ADULT (HEPLISAV-B) 09/05/2021,05/09/2021,04/04/2021,02/18 Hepatitis B, 20+ yrs 09/16/2018,04/14/2018,03/1104/11/2018 Pneumococcal Conjugate Vacci ne, 20-valent ([id number]) 06/22/2024,12/02/2023(Deferred: - pt states she's already received) [...] No 08/14/2023 Does the household have a [facility] source of income? (Household - for ages [...] Date Author No 12/11/2022 6:51 PM EDT Siena Wiley RN documented in this encounter Plan of Treatment Upcoming Encounters Date Type Department Care Team (Late st Contact Info) Description 08/19/2024 10:00 AM EST Home Visit [facility] [address] [place] [address] Heidi Garcia RN [address] [place] [address] 09/02/2024 10:00 AM EST Nurse Only Nutrition & Weight Management, [facility] [address] [place] [address] [facility] Nurse Gi Nutrition [facility] [address] [place] [address] 09/30/2024 11:00 AM EDT Office Visit Podiatry [facility] [address] [place] [phone] Calli Avila DPM [address] [place] [address] 12/09/2024 12:54 PM EDT Hospital Encounter OR [facility], Operating Room, [facility] - 4th Floor [address] [place] [phone] Himanshu Rivero, DO [address] [place] [address] 12/09/2024 12:54 PM EDT - 12/09/2024 1:35 PM EDT Surgery OR [facility], Operating Room, [facility] - 4th Floor [address] [place] [address] Himanshu Rivero, DO [address] [place] [address] COLONOSCOPY FLEXIBLE PROXIMAL DIAGNOSTIC 12/21/2024 10:30 AM EDT Office Visit Gastroenterology, [facility] [address] [place] [address] Emi Queen CRNP [address] [place] [address] 03/10/2025 1:20 PM EDT Office [facility] [address] [facility] [place] [phone] Joanne Parks PA-C [address] [place] [address] [place] [address] Scheduled Procedures Name Priority Associated Diagnoses Date/Ti [...] this encounter Medical Devices Implanted Type Area Snowboard Designer Device Identifier Shelf Expiration Date Model / Serial / Lot Coil Vortex 35 Pltinm [id number] - [id number] Implanted:Qty: 1 on 11/27/2021 by Sterling Cates MD at [place] [facility] [place] Right: Upper Arm [employer] : NEURO INTR [id number] 08/15/2024 [id number] Coil Vortex 35 Pltinm [id number] - [id number] Implanted:Qty: 1 on 11/27/2021 by Sterling Cates MD at OR [facility] [place] Right: Upper Arm [employer] : NEURO INTR [id number] 08/15/2024 [id number] / / [id number] Coil Vortex 35 Pltinm [id number] - [id number] Implanted:Qty: 1 on 11/27/2021 by Sterling Cates MD at OR [facility] Right: Upper Arm [employer] : NEURO INTR [id number] 08/15/2024 [id number] / / [id number] Coil Vortex 35 Pltinm [id number] - [id number] Implanted:Qty: 1 on 11/27/2021 by Sterling Cates MD at OR [facility] Right: Upper Arm [employer] : NEURO INTR [id number] 05/16/2024 [id number] / / [id number] Azur 35 Detachable 5mm 11cm - [id number] Implanted:Qty: 1 on 03/19/2022 by Jose Devine MD at OR [facility] Right: Wrist [employer] [id number] 10/18/2025 [id number] / / [id number] Azur 35 Detachable 5mm 11cm - [id number] Implanted:Qty: 1 on 03/19/2022 by Jose Devine MD at OR [facility] Right: Wrist [employer] [id number] 06/19/2026 [id number] / / [id number] Mesh Flat Sheet 10x14 [id number] - [id number] Implanted:Qty: 1 on 12/11/2022 by Eros Dash MD at OR [facility] N/A: Abdomen CR BARD : DAVOL [id number] 06/17/2027 [id number] / / [id number] documented as of this encounter Procedures Procedure Name Priority Date/Time Associated Diagnosis Comments DERM EXAM - DERM (IMAGES ONLY, NO REPORT) Routine 08/10/2024 2:59 PM EST Skin exam, screening for cancer Hx of melanoma of skin Scar condition and fibrosis of skin Multiple nevi Epidermoid cyst Hx of melanoma in situ documented in this encounter Results * DERM EXAM - DERM (IMAGES ONLY, NO REPORT) (08/10/2024 2:59 PM EST) Narrative Scheduling, Silent - 08/10/2024 2:59 PM EST This is an imaging study not interpreted or resulted by a [facility] or [facility] contracted radiologist. Joanne Parks PA-C RADIOLOGY (RAD GENERAL ) Final Result documented in this encounter Advance Directives Documents on File Type Date Recorded Patient Ceramic Coater Machine Expl anation POLST 11/13/2020 POLST P[place]VA VALERIA [...] Finley Spouse Health Care Agent Care Teams Garage Door Installer Relationship Specialty Start Date End Date Luis Fernando Rojas MD PCP - General Family Medicine 09/23/16 documented as of this encounter
--- OUTSIDE RECORDS SUMMARY | 2024-10-05 05:31 | External Medical Summary | Summary of Care ---
Author Name Unknown Organization [facility] Address [address] [place] [address] Phone [phone] Care Team Providers Care Plant Custodian Name Role Phone Luis Fernando Rojas MD Primary Care Provider [phone] Reason for Visit * Reason Onset Date Comments Advice 08/19/2024 Encounter Details Date Type Department Care Team (Late st Contact Info) Description 08/19/2024 Telephone [facility], [facility] [address] [place] [address] Heidi Garcia, RN [address] [place] [address] Advice Allergies Active Allergy Reactions Criticality Noted [...] 4 11:01 AM EST 03/20/20 24 Active [email or web address] In Vitro Strip (Glucose Blood) To test blood sugar 4 times daily. 400 Strip 1 4 6:47 AM EDT 04/20/20 24 Active [employer] Delica Lancets 33G To test blood sugar 4 times daily. 400 Each 1 4 6:47 AM EDT 04/20/20 24 Active [email or web address] w/Device Kit Use as directed. 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 10/15/2022 [facility] OTHER*[id number] 01/01/2022 S/P gastric bypass 01/01/[address] [...] 8:45 AM EDT): Gabapentin 600 mg at [facility] Assessment & Plan (05/07/2021 11:11 [...] T-tube placement 04/16/2017 05/29/2017 [employer] Other*[id number] 04/13/2013 08/27/2016 Overview (04/13/2013): Study Title: Genomic Markers for Patients with Cardiovascular Disease Project # [id number] Washing Machine Repairer: Siena Laws MD [phone] Hypertensive heart disease 03/25/2013 1 07/29/2016 Neuropathy, [...] yrs 09/16/2018,04/14/2018,03/1104/11/2018 Pneumococcal Conjugate Vacci ne, 20-valent ([id number]) 06/22/2024,12/02/2023(Deferred: - pt states she's already received) [...] Ancillary Department, [address] Michelle [place] [id number] [place] Nurse [address] [place] [address] 09/02/2024 10:00 AM EST Nurse Only Nutrition & Weight Management, [facility] [address] [place] [address] Boni Nurse Gi Nutrition [facility] [place] [address] 09/09/2024 11:10 AM EST Telemedicine Pharmacy, [place] [address] [phone] [place] [address] [address] 09/21/2024 10:30 AM EST [facility], [facility] [address] [place] [address] Heidi Garcia, RN [address] [place] [address] 09/30/2024 11:00 AM EDT Office Visit Podiatry [facility] [address] [place] [phone] Calli Avila DPM [address] [place] [address] 12/09/2024 12:54 PM EDT Hospital Encounter OR GL, Operating Room, [facility] - 4th Floor [address] [place] [phone] Himanshu Rivero DO [address] [place] [address] 12/09/2024 12:54 PM EDT - 12/09/2024 1:35 PM EDT Surgery OR GL, Operating Room, [facility] - 4th Floor [address] [place] [address] Himanshu Rivero DO [address] [place] [address] COLONOSCOPY FLEXIBLE PROXIMAL DIAGNOSTIC 12/21/2024 10:30 AM EDT Office Visit Gastroenterology, [facility] [address] [place] [address] Emi Queen CRNP [address] [place] [address] 03/10/2025 1:20 PM EDT Office Visit Dermatology, [place] [address] [phone] Joanne Parks PA-C [address] [place] [address] [place] [address] Scheduled Procedures Name Priority Associated Diagnoses Date/Ti [...] this encounter Medical Devices Implanted Type Area Electric Gas Appliances Demonstrator Device Identifier Shelf Expiration Date Model / Serial / Lot Coil Vortex 35 Pltinm [id number] - [id number] Implanted:Qty: 1 on 11/27/2021 by Sterling Cates [place] [facility] [place] Upper Arm [employer] : NEURO INTR [id number] 08/15/2024 [id number] / [id number] Coil Vortex 35 Pltinm [id number] - [id number] Implanted:Qty: 1 on 11/27/2021 by Sterling Cates MD [place] [facility] [place]: Upper Arm [employer] : NEURO INTR [id number] 08/15/2024 [id number] / / [id number] Coil Vortex 35 Pltinm [id number] - [id number] Implanted:Qty: 1 on 11/27/2021 by Sterling Cates MD [place] [facility] [place]: Upper Arm [employer] : NEURO INTR [id number] 08/15/2024 [id number] / / [id number] Coil Vortex 35 Pltinm [id number] - [id number] Implanted:Qty: 1 on 11/27/2021 by Sterling Cates MD [place] [facility] [place]: Upper Arm [employer] : NEURO INTR [id number] 05/16/2024 [id number] / / [id number] Azur 35 Detachable 5mm 11cm - [id number] Implanted:Qty: 1 on 03/19/2022 by Jose Devine MD [place] [facility] [place]: Wrist [employer] [id number] 10/18/2025 [id number] / / [id number] Azur 35 Detachable 5mm 11cm - [id number] Implanted:Qty: 1 on 03/19/2022 by Jose Devine MD [place] [facility] [place] Wrist [employer] [id number] 06/19/2026 [id number] / / [id number] Mesh Flat Sheet 10x14 [id number] - [id number] Implanted:Qty: 1 on 12/11/2022 by Eros Dash MD [place] [facility] [place]/A: Abdomen CR BARD : DAVOL [id number] 06/17/2027 [id number] / / [id number] documented as of this encounter Advance Directives Documents on File Type Date Recorded Patient Braid Pattern Setter Expl anation POLST 11/13/2020 POLST PENNSYLVA VALERIA [...] Agents on File Name Relationship Healthcare Agent Relationsak p Communication Zhen Finley Spouse Health Care Agent Care Teams Plant Custodian Relationship Specialty Start Date End Date Luis Fernando Rojas MD PCP - General Family Medicine 09/23/16 documented as of this encounter
--- OUTSIDE RECORDS SUMMARY | 2024-10-05 05:32 | External Medical Summary | Summary of Care ---
Author Name Unknown Organization [facility] Address [address] [place] [address] Phone [phone] Care Team Providers Care Room Maid Name Role Phone Luis Fernando Rojas MD Primary Care Provider [phone] Reason for Visit * Reason Comments Follow Up Routine skin exam, n o new concerns Encounter Details Date Type Department Care Team (Late st Contact Info) Description 08/10/2024 2:40 PM EST [facility] [address] [place] [address] Joanne Parks PA-C [address] [place] [address] [place] [id number] Hx of melanoma of skin*; Skin exam, screening for cancer; Scar condition and fibrosis of skin; Multiple nevi; Epidermoid cyst; Hx of melanoma in situ Allergies Active Allergy Reactions Criticality Noted Date Comments Salvador Inhibitors Other (Please comment),Cough High HyperKalemia documented as of this encounter (statuses as of 08/10/2024) Medications Melatonin 10 MG Tablet Take 12 [...] directed. Replace every 14 days (supplied through [facility]) 7 Each 3 05/17/20 21 Active CPAP [...] goal of less than 7.0% ([facility]) Inject 14 units with breakfast, 4 units [...] for Cough. 120 mL 1 07/15/20 Active Benzonatate 100 MG Oral Capsule (Tessalon Perles) Take 1 Capsule by mouth 3 times a day as needed for Cough. Do not cut, crush, or chew. 50 Capsule 1 07/15/20 Active Hospital, Clinic, or Other Facility Administered Medication Ordered Dose Route Frequency Start Date End Date Status vitamin b-12 (Cyanocobalamin) inj 1,000 mcgIndications:S/P gastric bypass 1000 mcg IM [id number] 10/15/2022 07/19/2025 Active vitamin b-12 (Cyanocobalamin) inj 1,000 mcgIndications:Morbid obesity with BMI of 40.0-44.9, adult (HCC),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 [id number] 10/17/2023 12/11/19 Active documented as of this encounter (statuses as of 08/10/2024) Active Problems Problem Noted Date Diagnosed Date [...] 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 10/15/2022 [facility] OTHER*[id number] 01/01/2022 S/P gastric bypass 01/01/[address] [...] as of this encounter (statuses as of 08/10/2024) Resolved Problems Problem Noted Date Diagnosed Date [...] T-tube placement 04/16/2017 05/29/2017 [employer] Other*[id number] 04/13/2013 08/27/2016 Overview (04/13/2013): Study Title: Genomic Markers for Patients with Cardiovascular Disease Project # [id number] 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 Supervisor: Siena Laws MD [phone] Hypertensive heart disease 03/25/2013 1 07/29/2016 Neuropathy, [...] as of this encounter (statuses as of 08/10/2024) Immunizations Name Administration Dates Next Due COVID-19 mRNA, LNP-s, No Pre serve, 2-Dose Series (Moderna) 04/09/2021,09/23/2020,08/19/2020 COVID-19, LNP-s, No Preserve , Espinoza-sucrose, Ages 12+ (Pfizer) 01/08/2022 COVID-19, MRNA-LNP, PF, 30 M CG/0.3 mL, 12 YRS AND ABOVE, IM ([email or web address]) 06/02/2024 HEPATITIS B VACCINE, RECOMB, 20 MCG/ML, ADULT (HEPLISAV-B) 09/05/2021,05/09/2021,04/04/2021,02/18 Hepatitis B, 20+ yrs 09/16/2018,04/14/2018,03/1104/11/2018 Pneumococcal Conjugate Vacci ne, 20-valent ([id number]) 06/22/2024,12/02/2023(Deferred: - pt states she's already received) [...] No 08/14/2023 Does the household have a [facility] source of income? (Household - for ages [...] this encounter Patient Instructions * Patient Instructions* Joanne Parks PA-C - 08/10/2024 2:42 PM EST SUNSCREEN USE AND SUN PROTECTION: 1. The best protection is sun avoidance. Seek shade if you can, especially between 10am to 4pm (peak sun hours). 2. Use sunscreen with an SPF (Sun Protection Factor - the number on most sunscreen bottles) of 30 or more that protects from Ultraviolet A (UVA) and Ultraviolet B (UVB) wavelength light (strongly recommend SPF 50). This is referred to as broad spectrum sun protection because it protects from most wa velengths in both spectrums of UVA and UVB light. Unfortunately, even though the protection is broad it is not complete, therefore making sun avoidance the best protection. UVB and UVA have both beenimplicated in causing skin cancers. Older sunscreens only protected from UVB and sunscreens with added UVA protection should contain Titanium dioxide, Zinc oxide, or Avobenzone. Other oil free, non-comedogenic lotion with SPF 30 or greater is fine. 3. Use sun protection if outside for 15 minutes or more. Apply 20-30 minutes before going out and reapply every 1-2 hours. No sunscreen is truly water ''proof'' and it will wash away with sweat, swimming and rubbing. 4. Wear tightly woven, loose fitting (cooler) long sleeved clothing, UV-blocking sun glasses (eyes need protection as well) and wide-brimmed hatwear (no straw hats with holes because light still getsthrough). Strongly recommended *Neutrogena Pure and Free Baby SPF 60 (have separate face and body lotions) orCeraVe AM facial lotion (with SPF 30). If looking for non toxic alternatives-look for non-kelly particle zinc. Product examples; Think sport, Think baby, Maik, Babo botanicals, Alba botanicals, [place] baby. "Baby" products can be used for all ages. documented in this encounter Progress Notes * Joanne Parks PA-C - 08/10/2024 2:40 PM EST SUBJECTIVE: HPI: Candi Finley is a 63 year old female seen at the request of Self for evaluation and treatment of MM hx/full skin exam. No vulvar exams performed, no vulvar discoloration and/or lesions to be assessed per pt. - Tanning bed history. + Blistering sunburns. No new or changing lesions, per pt. Previous Dr. Laboy patient. 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 REVIEW OF SYSTEMS: SKIN: No other new or changing moles. HEME/LYMPH: No new or enlarging lumps or bumps. CONSTITUTIONAL: No nausea, vomiting, fevers, chills, diarrhea. No recent unintended weight loss, night sweats, appetite or malaise. RESP: negative MSK/EXT: Negative or as per HPI GI: negative CV: Negative or as per HPI Rest of systems are negative or as per HPI SKIN CANCER HX: Melanoma History: Location: R arm Year: 2020 Depth: 1.1 mm Treatment: WLE, SLNB negative (0/2) Staging: Stage IB - [id number] - > 1.0-2.0 mm without ulceration Location: L calf Year: 2009 Depth: MIS Treatment: WLE Staging: Stage 0 Hx ATN Reviewed, same day as visit, 0 [facility] Dermatology lab work(s)/pathology report(s) as well as those sent by referring provider prior to seeing pt. Past Medical History: Diagnosis Date Body mass index 40 and over, adult CHF NYHA class I ([facility]) 07/2009 Chronic marginal ulcer Deficiency of other vitamins Vit D Depressive disorder, not elsewhere classified Dialysis patient ([facility]) Diverticulosis of colon (without mention of hemorrhage) 12/02/2013 sigmoid & descending colon DM type 2 causing eye disease ([facility]) DM type 2 causing neurological disease ([facility]) neuropathy since 2006 DM type 2 causing renal disease ([facility]) DM type 2, goal A1c below [address] Monte Dyslipidemia, goal LDL below 100 primarily high triglycerides Endometrial cancer ([facility]) 1993 ESRD (end stage renal disease) on dialysis ([facility]) 03/14/2021 HTN, goal below 130/80 Kidney disease, chronic, stage III (GFR 30-59 ml/min) ([facility]) 10/02/2011 More specified code listed on PL Historical Malignant melanoma of right upper extremity ([facility]) 05/07/2021 Malignant neoplasm of corpus uteri ([facility]) 1993 Melanoma ([facility]) L calf R arm Motion sickness Neuropathy, diabetic ([facility]) 02/18/2013 Osteoarthritis of hip mild to mod bilat hip pain Other specified anemias low iron Other specified glaucoma denied by patient PONV (postoperative nausea and vomiting) Renal failure hemodialysis SBO (small bowel obstruction) ([facility]) 04/25/2017 Sleep apnea 07/2009 CPAP 11 cm H2O. C-flex 2 FAMILY HISTORY: Skin CA: melanoma in father Skin Disorders: none SOCIAL HISTORY: Social History Tobacco Use Smoking status: Never Passive exposure: Never Smokeless tobacco: Never Substance Use Topics Alcohol use: No Vaping/E-Cigarette Use Vaping/E-Cigarette Use Never User Passive Exposure No Counseling Given? No Vaping/E-Cigarette Substances Nicotine No Other No Flavoring No THC No Cannabidiol (CBD) No Vaping/E-Cigarette Devices Disposable No Pre-filled or Refillable Cartridge No Refillable Tank No Pre-filled Pod No MEDICA TIONS: Current Outpatient Medications Medication Sig Dispense Refill Melatonin 10 MG Tablet Take 12 mg by mouth at bedtime. Aspirin 81 MG Oral Tablet Chewable Take 1 Tab by mouth at bedtime. with food. 90 Tab 3 FreeStyle Jennifer 2 Sensor Use as directed. Replace every 14 days (supplied through [facility]) 7 Each 3 CPAP every night at [...] DAY OR OTHER MEDICATIONS 90 Tablet 3 Insulin Glargine Solostar 100 [...] 1 Tablet by mouth in the morning. Omeprazole 20 MG Oral Capsule Delayed Release (PriLOSEC) Take 1 Capsule by mouth in the morning. 100 Capsule 3 Carvedilol 12.5 MG Oral Tablet (Coreg) Take 1 Tablet by mouth in the morning and 1 Tablet before bedtime. 180 Tablet 4 OneTouch Verio In Vitro Strip (Glucose Blood) To test blood sugar 4 times daily. 400 Strip 1 WeedWalluch Delica Lancets 33G To test blood sugar 4 times daily. 400 Each 1 Vasolux MicrosystemsTouch Verio w/Device Kit Use as directed. 1 Kit 0 buPROPion HCl ER (SR) 150 MG Oral Tablet Extended Release 12 Hour (Wellbutrin SR) Take 1 Tablet by mouth every evening. 90 Tablet 0 Albuterol Sulfate 0.63 MG/3ML Inhalation Nebulization Solution (Accuneb) Inhale 1 Vial via nebulizer every 6 hours as needed for Wheezing. guaiFENesin ER 600 MG Oral Tablet Extended Release 12 Hour (Humibid LA) Take 1 Tablet by mouth in the morning and 1 Tablet before bedtime. Promethazine-Codeine 6.25-10 MG/5ML Oral Syrup (Phenergan and Codeine) Take 5 mL by mouth 4 times aday as needed for Cough. 120 mL 1 Benzonatate 100 MG Oral Capsule (Tessalon Perles) Take 1 Capsule by mouth 3 times a day as needed for Cough. Do not cut, crush, or chew. 50 Capsule 1 Gabapentin 300 MG Oral Capsule (Neurontin) Take 1 Capsule by mouth at bedtime. Follow up with your primary care provider for further management. 90 Capsule 3 amLODIPine Besylate 5 MG Oral Tablet (Norvasc) TAKE ONE TABLET BY MOUTH EVERY DAY IN THE MORNING 90Tablet 1 Atorvastatin Calcium 40 MG Oral Tablet (Lipitor) Take 1 Tablet by mouth in the morning. 90 Tablet 1 Colestipol HCl 1 GM Oral Tablet (Colestid) 2 tablets at noon daily if needed for diarrhea 180 Tablet 3 Current Facility-Administered Medications Medication Dose Route Frequency Provider Last Rate Last Admin vitamin b-12 (Cyanocobalamin) inj 1,000 mcg 1,000 mcg Intramuscular Q12 Weeks Luis Fernando Rojas MD 1,000 mcg at 06/02/24 1019 vitamin b-12 (Cyanocobalamin) inj 1,000 mcg 1,000 mcg Intramuscular Q12 Weeks Cleo Fonseca PA-C ALLERGY: Salvador inhibitors OBJECT FRANTZ: GEN: alert, no distress, appears oriented, pleasant, and cooperative. SKIN: Detailed exam of hair, face including lids and lips, oral cavity, neck, chest, abdomen, back,bilateral upper ext. (arm, hand, fingers), bilateral lower ext. (leg, foot, toes), palpation of scalp, fingernails, toenails, inguinal areas, groin (mons pubis), buttocks, and anus completed: No bilat pre or post auricular, no bilat anterior or posterior cervical chain, no submental, no bilat supraclavicular, no bilat axillary, no bilat antecubital, no bilat inguinal, no bilat popliteal fossae lymphadenopathy. No hepatosplenomegaly. 1. R upper arm-White vertical atrophic scar with about 3cm mobile cyst superior to scar. 2. L calf-post inflammatory erythematous and hyperpigmented widened atrophic scar. 3. Face/neck/trunk/bilat arms and legs-About 200+ total; 2-8mm light and light- medium brown maculesand soft papules, few medium brown macules. ASSESS MENT/PLAN: 1-2. Scar s/p Malignant Melanoma on R upper arm and melanoma in situ on L calf- No sign of repigmentation/recurrence. -Patient recommended to get yearly eye exams from Opthalmologist and any age/gender appropriate screenings to include but not limited to; eye exams, dental exams, breast exam, pap smear, mammography,prostate exam, colonoscopy. The signs and symptoms of skin cancer were reviewed and the patient was advised to practice sun protection and sun avoidance, use daily sunscreen, and perform regular self-skin and lymph node exams on a monthly basis. 3. Nevi on face/neck/trunk/bilat arms and legs-no tx needed, pt given reassurance and written education about diagnosis. Skin cancer brochure given and ABCDE's discussed with patient. Annual full body skin examination (unless I recommended otherwise), self-examination, and sun protection (SPF 30+ daily to sun exposed areas, with reapplication every 1-2 hours when out in sun for long periods of time) advised and discussed. Recommended sooner follow up for new or changing lesions. These changes include rapid enlargement, changes in color or shape or symptoms, bleeding, or other concerns. The common features and behavior of non-melanoma skin cancers (e.g. BCC/SCC) as well as the ABCDEs and ugly duckling features of melanoma were also reviewed. Patient and today. Photo(s) of #1-3 taken, pt verbally consented to having photo(s) taken. Follow-up: 6 months for full skin exam/MM and MIS hx Pt seen and examined in clinic with Dr. Aston Alcala. Presum ed diagnoses, expected natural histories, and management options discussed with the patient at length. Questions were addressed and anticipatory guidance provided. They were instructed to contact me if additional questions, concerns, or problems develop in the interim. -There were no barriers to learning and no other pain was related to today's visit. The patient and/or person accompanying patient demonstrates understanding of the visit and treatment. Joanne Parks PA-C 08/10/2024 2:41 [address] [facility] [address] [facility] [place] [phone] documented in this encounter Nursing Notes * Patti Hardy LPN - 08/10/2024 2:39 PM EST Patient identified by full name and date of . Chief Complaint Patient presents with Follow Up Routine skin exam, no new concerns documented in this encounter Plan of Treatment Upcoming Encounters Date Type Department Care Team (Late st Contact Info) Description 08/19/2024 10:00 AM EST Home Visit Luis A at Home, [facility] [address] [place] [id number] Heidi Garcia, RN [address] [place] [address] 09/02/2024 10:00 AM EST Nurse Only Nutrition & Weight Management, [facility] [address] [place] [address] [facility], Nurse Gi Nutrition [facility] [place] [address] 09/30/2024 11:00 AM EDT Office Visit Podiatry [facility] [address] [place] [phone] Calli Avila DPM [address] [place] [address] 12/09/2024 12:54 PM EDT Hospital Encounter OR [facility], Operating Room, [facility] - 4th Floor [address] [place] [phone] Himanshu Rivero, DO [address] [place] [address] 12/09/2024 12:54 PM EDT - 12/09/2024 1:35 PM EDT Surgery OR [facility], Operating Room, [facility] - 4th Floor [address] [place] [phone] Himanshu Rivero, DO [address] [place] [address] COLONOSCOPY FLEXIBLE PROXIMAL DIAGNOSTIC 03/10/2025 1:20 PM EDT Office Visit [address] [place] [phone] Joanne Parks PA-C [address] [place] [address] [place] [address] Scheduled Procedures Name Priority Associated Diagnoses Date/Ti [...] this encounter Medical Devices Implanted Type Area Inspector Aide Device Identifier Shelf Expiration Date Model / Serial / Lot Coil Vortex 35 Pltinm [id number] - [id number] Implanted:Qty: 1 on 11/27/2021 by Sterling Cates MD [place] [facility] Right: Upper Arm [employer] : NEURO INTR [id number] 08/15/2024 [id number] / / [id number] Coil Vortex 35 Pltinm [id number] - [id number] Implanted:Qty: 1 on 11/27/2021 by Sterling Cates MD at [place] [facility] Right: Upper Arm [employer] : NEURO INTR [id number] 08/15/2024 [id number] / / [id number] Coil Vortex 35 Pltinm [id number] - [id number] Implanted:Qty: 1 on 11/27/2021 by Sterling Cates MD at [place] [facility] Right: Upper Arm [employer] : NEURO INTR [id number] 08/15/2024 [id number] / / [id number] Coil Vortex 35 Pltinm [id number] - [id number] Implanted:Qty: 1 on 11/27/2021 by Sterling Cates MD at [place] [facility] Right: Upper Arm [employer] : NEURO INTR [id number] 05/16/2024 [id number] / / [id number] Azur 35 Detachable 5mm 11cm - [id number] Implanted:Qty: 1 on 03/19/2022 by Jose Devine MD at [place] [facility] Right: Wrist [employer] [id number] 10/18/2025 [id number] / / [id number] Azur 35 Detachable 5mm 11cm - [id number] Implanted:Qty: 1 on 03/19/2022 by Jose Devine MD at [place] [facility] Right: Wrist [employer] [id number] 06/19/2026 [id number] / / [id number] Mesh Flat Sheet 10x14 [id number] - [id number] Implanted:Qty: 1 on 12/11/2022 by Eros Dash MD at [place] [facility] N/A: Abdomen CR BARD : DAVOL [id number] 06/17/2027 [id number] / / [id number] documented as of this encounter Procedures Procedure [...] interpreted or resulted by a [facility] or [facility] contracted radiologist. Joanne Parks PA-C RADIOLOGY ([facility] ) Final Result documented in this encounter Visit [...] situ SSS (sick sinus syndrome) ([facility]) Sinoatrial node dysfunction MINISTERIO on CPAP Obstructive sleep apnea (adult) (pediatric) Hypothyroidism (acquired) Unspecified hypothyroidism Type 2 diabetes mellitus 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 dialysis, with long-term current use of insulin ([facility]) S/P gastric bypass Bariatric surgery status ESRD (end stage renal disease) on dialysis ([facility]) End stage renal disease Recurrent ventral incisional hernia Incisional hernia without mention of obstruction or gangrene NO SHOW/FAILED TO KEEP APPOINTMENT- Primary Chronic diastolic heart failure ([facility])- Primary Chronic diastolic heart failure HTN, goal below 140/90 Unspecified essential hypertension Type 2 diabetes mellitus with hemoglobin A1c goal of less than 7.0% ([facility]) Hypothyroidism (acquired) Unspecified hypothyroidism Dyslipidemia, goal LDL below 100 Other and unspecified hyperlipidemia Major depressive disorder, single episode, moderate ([facility]) Major depressive disorder, single episode, moderate 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, with long-term current use of insulin ([facility]) Hyperparathyroidism, secondary renal (HCC) Secondary hyperparathyroidism (of renal origin) End stage renal disease on dialysis (HCC) End stage renal disease MINISTERIO on CPAP Obstructive sleep apnea (adult) (pediatric) Diarrhea, unspecified type Hx of melanoma of skin- Primary Personal history of malignant melanoma of skin Skin exam, screening for cancer Screening for malignant neoplasm of the skin Scar condition and fibrosis of skin Multiple nevi Benign neoplasm of skin, site unspecified Epidermoid cyst Sebaceous cyst Hx of melanoma in situ Personal history of malignant melanoma of skin History of colonic polyps Personal history of colonic polyps Diarrhea documented in this encounter Advance Directives Documents on File Type Date Recorded 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
--- OUTSIDE RECORDS SUMMARY | 2024-10-05 05:32 | External Medical Summary | Summary of Care ---
Author Name Unknown Organization [facility] Address [address] [place] [address] Phone [phone] Care Team Providers Care Assembler Name Role Phone Luis Fernando Rojas MD Primary Care Provider [phone] Reason for Visit * Reason Onset Date Comments Appointment 08/10/2024 Return for 6 mon ths for MELANOMA (40 MIN COMPLEX). Encounter Details Date Type Department Care Team (Late st Contact Info) Description 08/10/2024 Telephone [facility] [address] [place] [address] Luis Fernando Rojas MD [address] [place], [place] [phone] Appointment (Return for 6 months for MELAN... Allergies Active Allergy Reactions Criticality Noted Date [...] of less than 7.0% ([facility]) Inject 14 units with breakfast, 4 [...] 4 11:01 AM EST 03/20/20 24 Active OneToPocket Change Card Verio In Vitro Strip (Glucose Blood) To test blood sugar 4 times daily. 400 Strip 1 4 6:47 AM EDT 04/20/20 24 Active OneTouch Delica Lancets 33G To test blood sugar 4 times daily. 400 Each 1 4 6:47 AM EDT 04/20/20 24 Active Tech21Touch Verio w/Device Kit Use as directed. 1 [...] 1,000 mcgIndications:S/P gastric bypass 1000 mcg IM [id number] 10/15/2022 07/19/2025 Active vitamin b-12 (Cyanocobalamin) inj 1,000 mcgIndications:Morbid obesity with BMI of 40.0-44.9, adult (HCC),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 [id number] 10/17/2023 12/11/19 25 Active documented as of [...] 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 10/15/2022 [facility] OTHER*[id number] 01/01/2022 S/P gastric bypass 01/01/2022 [address]ialysis AV [...] (H) 03/17/2020 09:21 AM HEMOGLOBIN A1C - TANGELAER 8.5 (H) 12/09/2019 08:56 AM Goal < [...] 8:45 AM EDT): Gabapentin 600 mg at [facility] Assessment & Plan (05/07/2021 11:11 [...] T-tube placement 04/16/2017 05/29/2017 [employer] Other*[id number] 04/13/2013 08/27/2016 Overview (04/13/2013): Study Title: Genomic Markers for Patients with Cardiovascular Disease Project # [id number] Credit And Collection Manager: Siena Laws MD [phone] Hypertensive heart disease 03/25/2013 1 07/29/2016 Neuropathy, [...] yrs 09/16/2018,04/14/2018,03/1104/11/2018 Pneumococcal Conjugate Vacci ne, 20-valent ([id number]) 06/22/2024,12/02/2023(Deferred: - pt states she's already received) [...] encounter Miscellaneous Notes * Telephone Encounter - Patti Hardy LPN - 08/10/2024 3:16 PM EST Feb at 1:20 PM * Telephone Encounter - Joanne Farah OSA - 08/10/2024 3:03 PM EST Per 08/10/2024 checkout notes: Return for 6 months for MELANOMA (40 MIN COMPLEX). Please provide date and time for 6 month follow up and I will send patient MyG with appt info. Thank you. documented in this encounter Plan of Treatment Upcoming Encounters Date Type Department Care Team (Late st Contact Info) Description 08/19/2024 10:00 AM EST Home Visit [facility], [facility] [address] [place] [address] Heidi Garcia, RN [address] [place] [address] 09/02/2024 10:00 AM EST Nurse Only Nutrition & Weight Management, [facility] [address] [place] [address] [facility], Nurse Gi Nutrition [facility] [address] [place] [address] 09/30/2024 11:00 AM EDT Office Visit Podiatry [facility] [address] [place] [phone] Calli Avila DPM [address] [place] [address] 12/09/2024 12:54 PM EDT Hospital Encounter OR GL, Operating Room, [facility] - 4th Floor [address] [place] [phone] Himanshu Rivero, DO [address] [place] [address] 12/09/2024 12:54 PM EDT - 12/09/2024 1:35 PM EDT Surgery OR [facility], Operating Room, [facility] - 4th Floor [address] [place] [phone] Himanshu Rivero, DO [address] [place] [address] COLONOSCOPY FLEXIBLE PROXIMAL DIAGNOSTIC 03/10/2025 1:20 PM EDT Office [facility] [address] [facility] [place] [phone] Joanne Parks PA-C [address] [place] [address] [place] [address] Scheduled Procedures Name Priority Associated Diagnoses Date/Ti [...] this encounter Medical Devices Implanted Type Area Pool Attendant Device Identifier Shelf Expiration Date Model / Serial / Lot Coil Vortex 35 Pltinm [id number] - [id number] Implanted:Qty: 1 on 11/27/2021 by Sterling Cates MD [place] [facility]: Upper Arm [employer] : NEURO INTR [id number] 08/15/2024 [id number] / / [id number] Coil Vortex 35 Pltinm [id number] - [id number] Implanted:Qty: 1 on 11/27/2021 by Sterling Cates MD at [place] [facility] Right: Upper Arm [employer] : NEURO INTR [id number] 08/15/2024 [id number] / / [id number] Coil Vortex 35 Pltinm 830420 - [id number] Implanted:Qty: 1 on 11/27/2021 by Sterling Cates MD at [place] [facility] Right: Upper Arm [employer] : NEURO INTR [id number] 08/15/2024 [id number] / / [id number] Coil Vortex 35 Pltinm 650970 - [id number] Implanted:Qty: 1 on 11/27/2021 by Sterling Cates MD at [place] [facility] Right: Upper Arm [employer] : NEURO INTR [id number] 05/16/2024 [id number] / [id number] Azur 35 Detachable 5mm 11cm - [id number] Implanted:Qty: 1 on 03/19/2022 by Jose Devine MD at [place] [facility] Right: Wrist [employer] MED[employer]AT [id number] 10/18/2025 [id number] / / [id number] Azur 35 Detachable 5mm 11cm - [id number] Implanted:Qty: 1 on 03/19/2022 by Jose Devine MD at [place] [facility] Right: Wrist [employer] MED[employer] [id number] 06/19/2026 [id number] / / [id number] Mesh Flat Sheet 10x14 [id number] - [id number] Implanted:Qty: 1 on 12/11/2022 by Eros Dash MD at [place] [facility] N/A: Abdomen CR BARD : DAVOL [id number] 06/17/2027 [id number] / / [id number] documented as of this encounter Advance Directives Documents on File Type Date Recorded Patient Entertainment Musician Expl anation POLST 11/13/2020 POLST PENNSYLVA VALERIA [...] Agents on File Name Relationship Healthcare Agent Ameliahi laisha Communication Zhen Finley Spouse Health Care Agent Care Teams Assembler Relationship Specialty Start Date End Date Luis Fernando Rojas MD PCP - General Family Medicine 09/23/16 documented as of this encounter
--- OUTSIDE RECORDS SUMMARY | 2024-10-05 05:32 | External Medical Summary | Summary of Care ---
Author Name Unknown Organization [facility] Address [address] [place] [address] Phone [phone] Care Team Providers Care Coal Getter Name Role Phone Luis Fernando Rojas MD Primary Care Provider Reason for Visit * Reason Onset Date Comments Appointment 08/10/2024 Return for 6 mon ths for MELANOMA (40 MIN COMPLEX). Encounter Details Date Type Department Care Team (Late st Contact Info) Description 08/10/2024 Telephone [facility] [address] [place] [address] Luis Fernando Rojas MD [address] [place], [place] [phone] Appointment (Return for 6 months for MELAN... [...] directed. Replace every 14 days (supplied through [facility] [place] 7 Each 3 05/17/20 [...] goal of less than 7.0% ([facility]) Inject 14 units with breakfast, 4 units [...] 4 11:01 AM EST 03/20/20 24 Active OneToHeyKiki Verio In Vitro Strip (Glucose Blood) To test blood sugar 4 times daily. 400 Strip 1 4 6:47 AM EDT 04/20/20 24 Active OneTouch Delica Lancets 33G To test blood sugar 4 times daily. 400 Each 1 4 6:47 AM EDT 04/20/20 24 Active Achronix SemiconductorTouch Verio w/Device Kit Use as directed. 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 [id number] 10/17/2023 12/11/19 25 Active documented as of [...] 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 10/15/2022 [facility] RESEARCH OTHER*[id number] 01/01/2022 S/P gastric bypass 01/01/[address] [...] Gabapentin 600 mg at [facility] Assessment & Plan (05/07/2021 11:11 AM EDT): [...] Insulin long-term use 11/19/20182018 Overview (05/20/2019): 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 (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 insulin [...] T-tube placement 04/16/2017 05/29/2017 Gen[employer] Other*[id number] 04/13/2013 08/27/2016 Overview (04/13/2013): Study Title: Genomic Markers for Patients with Cardiovascular Disease Project # [id number] Manager Mental Health: Siena Laws MD [phone] Hypertensive heart disease 03/25/2013 1 07/29/2016 Neuropathy, [...] yrs 09/16/2018,04/14/2018,03/1104/11/2018 Pneumococcal Conjugate Vacci ne, 20-valent (Djmznvh24) 06/22/2024,12/02/2023(Deferred: - pt states she's already received) [...] Description 08/19/2024 10:00 AM EST Home Visit [facility] [place], [facility] [address] [place] [address] Heidi Garcia, RN [address] [place] [address] 09/02/2024 10:00 AM EST Nurse Only Nutrition & Weight Management, [facility] [address] [place] [address] [facility], Nurse Gi Nutrition [facility] [address] [place] [address] 09/30/2024 11:00 AM EDT Office Visit Podiatry [facility] [address] [place] [phone] Calli Avila DPM [address] [place] [address] 12/09/2024 12:54 PM EDT Hospital Encounter OR GL, Operating Room, [facility] - 4th Floor [address] [place] [phone] Himanshu Rivero, DO [address] [place] [address] 12/09/2024 12:54 PM EDT - 12/09/2024 1:35 PM EDT Surgery OR [facility], Operating Room, [facility] - 4th Floor [address] [place] [phone] Himanshu Rivero, DO [address] [place] [address] COLONOSCOPY FLEXIBLE PROXIMAL DIAGNOSTIC 03/10/2025 1:20 PM EDT [facility] [place] [facility] [address] [facility] [place] [phone] Joanne Parks PA-C [address] [place] [address] [place] [address] Scheduled Procedures Name Priority Associated Diagnoses Date/Ti [...] this encounter Medical Devices Implanted Type Area Assistant Business Manager Device Identifier Shelf Expiration Date Model / Serial / Lot Coil Vortex 35 Pltinm [id number] - [id number] Implanted:Qty: 1 on 11/27/2021 by Sterling Cates MD at OR [facility] Right: Upper Arm [employer] : NEURO INTR [id number] 08/15/2024 [id number] / / [id number] Coil Vortex 35 Pltinm 998910 - [id number] Implanted:Qty: 1 on 11/27/2021 by Sterling Cates MD at OR [facility] Right: Upper Arm [employer] : NEURO INTR [id number] 08/15/2024 [id number] / / [id number] Coil Vortex 35 Pltinm 155037 - [id number] Implanted:Qty: 1 on 11/27/2021 by Sterling Cates MD at OR [facility] Right: Upper Arm [employer] : NEURO INTR [id number] 08/15/2024 [id number] / / [id number] Coil Vortex 35 Pltinm 887927 - [id number] Implanted:Qty: 1 on 11/27/2021 by Sterling Cates MD at OR [facility] Right: Upper Arm [employer] : NEURO INTR [id number] 05/16/2024 [id number] / [id number] Azur 35 Detachable 5mm 11cm - [id number] Implanted:Qty: 1 on 03/19/2022 by Jose Devine MD at OR [facility] Right: Wrist [employer] [id number] 10/18/2025 [id number] / / [id number] Azur 35 Detachable 5mm 11cm - [id number] Implanted:Qty: 1 on 03/19/2022 by Jose Devine MD at OR [facility] Right: Wrist [employer] [id number] 06/19/2026 [id number] / / [id number] Mesh Flat Sheet 10x14 [id number] - [id number] Implanted:Qty: 1 on 12/11/2022 by Eros Dash MD at OR [facility] N/A: Abdomen CR BARD : DAVOL [id number] 06/17/2027 [id number] / / [id number] documented as of this encounter Advance Directives Documents on File Type Date Recorded Patient Senior Web Architect Expl anation POLST 11/13/2020 POLST PENNSYLVA VALERIA [...] Finley Spouse Health Care Agent Care Teams Coal Getter Relationship Specialty Start Date End Date Luis Fernando Rojas MD PCP - General Family Medicine 09/23/16 documented as of this encounter
--- OUTSIDE RECORDS SUMMARY | 2024-10-05 05:32 | External Medical Summary | Summary of Care ---
Author Name Unknown Organization [facility] Address [address] [place] [address] Phone [phone] Care Team Providers Care Photography Colorist Name Role Phone Luis Fernando Rojas MD Primary Care Provider [phone] Reason for Visit * Reason Comments Follow Up Routine skin exam, n o new concerns Encounter Details Date Type Department Care Team (Late st Contact Info) Description 08/10/2024 2:40 PM EST [facility] [address] 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 [id number] 10/17/2023 12/11/19 Active documented as of this [...] 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 10/15/2022 [facility] RESEARCH OTHER*[id number] 01/01/2022 S/P gastric bypass 01/01/2022 [address] [...] T-tube placement 04/16/2017 05/29/2017 Gen[employer] Other*[id number] 04/13/2013 08/27/2016 Overview (04/13/2013): Study Title: Genomic Markers for Patients with Cardiovascular Disease Project # [id number] Ob/Gyn: Siena Laws MD [phone] Hypertensive heart disease 03/25/2013 1 07/29/2016 Neuropathy, [...] CG/0.3 mL, 12 YRS AND ABOVE, IM ([facility]) 06/02/2024 HEPATITIS B VACCINE, RECOMB, 20 MCG/ML, ADULT (HEPLISAV-B) 09/05/2021,05/09/2021,04/04/2021,02/18 Hepatitis B, 20+ yrs 09/16/2018,04/14/2018,03/1104/11/2018 Pneumococcal Conjugate Vacci ne, 20-valent (Inygogj59) 06/22/2024,12/02/2023(Deferred: - pt states she's already received) [...] No 08/14/2023 Does the household have a [facility] source of income? (Household - for ages [...] documented in this encounter Progress Notes * Aston Alcala MD - 08/11/2024 10:13 AM EST I have seen and examined the patient via teledermatology review of chart note and photos with Joanne Parks PA-C. I have reviewed and agree with the assessment and plan. * Joanne Parks PA-C - 08/10/2024 2:40 [...] lesions, per pt. Previous Dr. Laboy patient. Ems Driver Documentation Patient offered training specialist and declined. REVIEW OF SYSTEMS: SKIN: No [...] SLNB negative (0/2) Staging: Stage IB - [id number] - > 1.0-2.0 mm without ulceration Location: L calf Year: 2009 Depth: MIS Treatment: WLE Staging: Stage 0 Hx ATN Reviewed, same day as visit, 0 [facility] Dermatology lab work(s)/pathology report(s) as well as those sent by referring provider prior to seeing pt. Past Medical History: Diagnosis Date Body mass index 40 and over, adult CHF NYHA class I ([facility]) 07/2009 Chronic marginal ulcer Deficiency of other vitamins Vit D Depressive disorder, not elsewhere classified Dialysis patient ([facility]) Diverticulosis of colon (without mention of hemorrhage) 12/02/2013 sigmoid & descending colon DM type 2 causing eye disease ([facility]) DM type 2 causing neurological disease ([facility]) neuropathy since 2006 DM type 2 causing renal disease ([facility]) DM type 2, goal A1c below [address] Monte Dyslipidemia, goal LDL below 100 primarily high triglycerides Endometrial cancer ([facility]) 1993 ESRD (end stage renal disease) on dialysis ([facility]) 03/14/2021 HTN, goal below 130/80 Kidney disease, chronic, stage III (GFR 30-59 ml/min) ([facility]) 10/02/2011 More specified code listed on PL Historical Malignant melanoma of right upper extremity ([facility]) 05/07/2021 Malignant neoplasm of corpus uteri ([facility]) 1993 Melanoma ([facility]) L calf R arm Motion sickness Neuropathy, diabetic ([facility]) 02/18/2013 Osteoarthritis of hip mild to mod bilat hip pain Other specified anemias low iron Other specified glaucoma denied by patient PONV (postoperative nausea and vomiting) Renal failure hemodialysis SBO (small bowel obstruction) ([facility]) 04/25/2017 Sleep apnea 07/2009 CPAP 11 [...] [facility] 7 Each 3 CPAP every night at [...] sugar 4 times daily. 400 Strip 1 [employer] DelWhoWantsMe Lancets 33G To test blood sugar 4 [...] treatment. Joanne Parks PA-C 08/10/2024 2:41 PM Dermatology, [address] [place] [phone] documented in this encounter Nursing Notes * Patti Hardy LPN - 08/10/2024 2:39 PM EST Patient identified by full name and date of . Chief Complaint Patient presents with Follow Up Routine skin exam, no new concerns documented in this encounter Plan of Treatment Upcoming Encounters Date Type Department Care Team (Late st Contact Info) Description 08/19/2024 10:00 AM EST Home Visit [facility] [address] [place] [address] Heidi Garcia RN [address] [place] [address] 09/02/2024 10:00 AM EST Nurse Only Nutrition & Weight Management, [facility] [address] [place] [address] [facility], Gi Nutrition [facility] [address] [place] [address] 09/30/2024 11:00 AM EDT Office Visit Podiatry [facility] [address] [place] [phone] Calli Avila DPM [address] [place] [address] 12/09/2024 12:54 PM EDT Hospital Encounter [facility], Operating Room, [facility] - 4th Floor [address] [place] [phone] Himanshu Rivero DO [address] [place] [address] 12/09/2024 12:54 PM EDT - 12/09/2024 1:35 PM EDT Surgery OR [facility], Operating Room, [facility] - 4th Floor [address] [place] [phone] Himanshu Rivero, DO [address] [place] [address] COLONOSCOPY FLEXIBLE PROXIMAL DIAGNOSTIC 03/10/2025 1:20 PM EDT [facility] [address] [place] [phone] Joanne Parks PA-C [address] [place] [address] [place] [address] Scheduled Procedures Name Priority Associated Diagnoses Date/Ti [...] this encounter Medical Devices Implanted Type Area Preparation Supervisor Freezing Device Identifier Shelf Expiration Date Model / Serial / Lot Coil Vortex 35 Pltinm [id number] - [id number] Implanted:Qty: 1 on 11/27/2021 by Sterling Cates MD at OR [facility] [place] Right: Upper Arm [employer] : NEURO INTR [id number] 08/15/2024 [id number] Coil Vortex 35 Pltinm 360250 - [id number] Implanted:Qty: 1 on 11/27/2021 by Sterling Cates MD at OR [facility] [place] Right: Upper Arm [employer] : NEURO INTR [id number] 08/15/2024 [id number] Coil Vortex 35 Pltinm 678979 - [id number] Implanted:Qty: 1 on 11/27/2021 by Sterling Cates MD at OR [facility] [place] Right: Upper Arm [employer] : NEURO INTR [id number] 08/15/2024 [id number] Coil Vortex 35 Pltinm 361430 - [id number] Implanted:Qty: 1 on 11/27/2021 by Sterling Cates MD at OR [facility] [place] Right: Upper Arm [employer] : NEURO INTR [id number] 05/16/2024 [id number] Azur 35 Detachable 5mm 11cm - [id number] Implanted:Qty: 1 on 03/19/2022 by Jose Devine MD at OR [facility] [place] Right: Wrist [employer] [id number] 10/18/2025 [id number] / / [id number] Azur 35 Detachable 5mm 11cm - [id number] Implanted:Qty: 1 on 03/19/2022 by Jose Devine MD at OR [facility] [place] Right: Wrist [employer] [id number] 06/19/2026 [id number] / / [id number] Mesh Flat Sheet 10x14 [id number] - [id number] Implanted:Qty: 1 on 12/11/2022 by Eros Dash MD at OR [facility] [place] N/A: Abdomen CR BARD : DAVOL [id number] 06/17/2027 [id number] / / [id number] documented as of this encounter Procedures Procedure [...] study not interpreted or resulted by a [employer] or [employer] contracted radiologist. us Joanne Parks PA-C RADIOLOGY ([facility] ) Final Result documented in this [...] polyneuropathy associated with type 2 diabetes mellitus ([facility]) Advanced care planning/counseling discussion- Primary Other [...] dialysis, with long-term current use of insulin ([facility]) S/P gastric bypass Bariatric surgery status ESRD (end stage renal disease) on dialysis ([facility]) End stage renal disease Recurrent ventral [...] edema, with long-term current use of insulin ([facility]) Hyperparathyroidism, secondary renal (HCC) Secondary hyperparathyroidism [...] Documents on File Type Date Recorded Patient Optical Instrument Specialist Expl anation POLST 11/13/2020 POLST PEN[place]YLVA [...] Agents on File Name Relationship Healthcare Agent [facility] Communication Zhen Finley Spouse Health Care Agent Care Teams Photography Colorist Relationship Specialty Start Date End Date Luis Fernando Rojas MD PCP - General Family Medicine 09/23/16 documented as of this encounter
--- OUTSIDE RECORDS SUMMARY | 2024-10-05 05:32 | External Medical Summary | Summary of Care ---
Author Name Unknown Organization [facility] Address [address] [place] [address] Phone [phone] Care Team Providers Care Correctional Guard Name Role Phone Luis Fernando Rojas MD Primary Care Provider [phone] Reason for Visit * Reason Onset Date Comments Appointment 08/10/2024 Colonoscopy Encounter Details Date Type Department Care Team (Late st Contact Info) Description 08/10/2024 Telephone Gastroenterology, [address] [address] Specified, Zz No Resource [address] [place] [address] Appointment (Colonoscopy ) Allergies Active Allergy Reactions Criticality Noted [...] 4 11:01 AM EST 03/20/20 24 Active CipherMaxTouch Verio In Vitro Strip (Glucose Blood) To test blood sugar 4 times daily. 400 Strip 1 4 6:47 AM EDT 04/20/20 24 Active OneTouch Delica Lancets 33G To test blood sugar 4 times daily. 400 Each 1 4 6:47 AM EDT 04/20/20 24 Active CipherMaxToCarbon Salon Verio w/Device Kit Use as directed. 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 Magallanes. 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 insulin 11/19/2018 10/08/2022 [...] T-tube placement 04/16/2017 05/29/2017 [employer] Other*[id number] 04/13/2013 08/27/2016 Overview (04/13/2013): Study Title: Genomic Markers for Patients with Cardiovascular Disease Project # [id number] Railway Head Tender: Siena Laws MD [phone] Hypertensive heart disease 03/25/2013 1 07/29/2016 Neuropathy, [...] yrs 09/16/2018,04/14/2018,03/1104/11/2018 Pneumococcal Conjugate Vacci ne, 20-valent ([id number]) 06/22/2024,12/02/2023(Deferred: - pt states she's already received) [...] No 08/14/2023 Does the household have a [facility] source of income? (Household - for [...] of Assessment Author No 12/11/2022 6:51 PM CASAT Rabia Wiley RN * Because of a physical, mental, or emotional condition, do you have difficulty doing errands alone such as visiting a doctors office or shopping? (15 years old or older) Answer Date of Assessment Author No 12/11/2022 6:51 PM CASAT Rabia Wiley RN documented as of this encounter Mental Status * Because of a physical, mental, or emotional condition, do you have serious difficulty concentrating, remembering, or making decisions? (5 years old or older) Answer Entry Date Author No 12/11/2022 6:51 PM Rabia Granados RN documented in this encounter Miscellaneous Notes * Telephone Encounter - Liana Gaines OSA - 08/10/2024 9:54 AM EST Colon 12/09 at [facility] OR * Telephone Encounter - Anna Hartley OSA - 08/10/2024 9:06 AM EST Pt seen via video with Emi dupree she ordered a colonoscopy for the pt. Pt has had previous procedures done at [facility] hospital due to health history. Pt is needing or setting please call to schedule. documented in this encounter Plan of Treatment Upcoming Encounters Date Type Department Care Team (Late st Contact Info) Description 08/19/2024 10:00 AM EST Home Visit ising at Home, [facility] [address] [address] Heidi Garcia RN [address] [place] [address] 09/02/2024 10:00 AM EST Nurse Only Nutrition & Weight Management, [facility] [address] [facility] [place] [place] [address] Boni, Nurse Gi Nutrition [facility] [address] [facility] [place] [address] 09/30/2024 11:00 AM EDT Office Visit Podiatry [facility] [address] [place] [phone] Calli Avila DPM [address] [place] [address] 12/09/2024 12:54 PM EDT Hospital Encounter OR GL, Operating Room, [facility] - 4th Floor [address] [place] [phone] Himanshu Rivero, DO [address] [place] [address] 12/09/2024 12:54 PM EDT - 12/09/2024 1:35 PM EDT Surgery OR [facility], Operating Room, [facility] - 4th Floor [address] [place] [phone] Himanshu Rivero, DO [address] [place] [address] COLONOSCOPY FLEXIBLE PROXIMAL DIAGNOSTIC 03/10/2025 1:20 PM EDT Office Visit [facility] [address] [place] [phone] Joanne Parks PA-C [address] [place] [address] [place] [address] Scheduled Procedures Name Priority Associated Diagnoses Date/Ti [...] this encounter Medical Devices Implanted Type Area Rx Specialist Device Identifier Shelf Expiration Date Model / Serial / Lot Coil Vortex 35 Pltinm [id number] - [id number] Implanted:Qty: 1 on 11/27/2021 by Sterling Cates MD at OR [facility] [place] Right: Upper Arm [employer] : NEURO INTR [id number] 08/15/2024 [id number] 1 / / [id number] Coil Vortex 35 Pltinm [id number] - [id number] Implanted:Qty: 1 on 11/27/2021 by Sterling Cates MD at OR [facility] [place] Right: Upper Arm [employer] : NEURO INTR [id number] 08/15/2024 [id number] 1 / / [id number] Coil Vortex 35 Pltinm [id number] - [id number] Implanted:Qty: 1 on 11/27/2021 by Sterling Cates MD at OR [facility] [place] Right: Upper Arm [employer] : NEURO INTR [id number] 08/15/2024 [id number] 1 / / [id number] Coil Vortex 35 Pltinm [id number] - [id number] Implanted:Qty: 1 on 11/27/2021 by Sterling Cates MD at OR [facility] [place] Right: Upper Arm [employer] : NEURO INTR [id number] 05/16/2024 [id number] / / [id number] Azur 35 Detachable 5mm 11cm - [id number] Implanted:Qty: 1 on 03/19/2022 by Jose Devine MD at OR [facility] [place] Right: Wrist [employer] [id number] 10/18/2025 [id number] / / [id number] Azur 35 Detachable 5mm 11cm - [id number] Implanted:Qty: 1 on 03/19/2022 by Jose Devine MD at OR [facility] [place] Right: Wrist [employer] [id number] 06/19/2026 [id number] / / [id number] Mesh Flat Sheet 10x14 [id number] - [id number] Implanted:Qty: 1 on 12/11/2022 by Eros Dash MD at OR [facility] [place] N/A: Abdomen CR BARD : DAVOL [id number] 06/17/2027 [id number] / / [id number] documented as of this encounter Advance Directives Documents on File Type Date Recorded Patient Chronometer Assembler And Adjuster Expl anation POLST 11/13/2020 POLST PENNSYLVA VALERIA [...] Finley Spouse Health Care Agent Care Teams Correctional Guard Relationship Specialty Start Date End Date Luis Fernando Rojas MD PCP - General Family Medicine 09/23/16 documented as of this encounter
--- OUTSIDE RECORDS SUMMARY | 2024-10-05 05:32 | External Medical Summary | Summary of Care ---
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 Encounter Details Date Type Department Care Team (Late st Contact Info) Description 08/10/2024 Telephone [facility] [address] [place] [address] Luis Fernando Rojas MD [address] [place] [address], [place] [phone] Appointment (Return for 6 months for MELAN... [...] Replace every 14 days (supp[place] [facility] [place] 7 [...] than 7.0% (FORMERLY [facility]) Inject 14 units with breakfast, 4 units [...] 4 11:01 AM EST 03/20/20 24 Active OneToElephantDrive Verio In Vitro Strip (Glucose Blood) To test blood sugar 4 times daily. 400 Strip 1 4 6:47 AM EDT 04/20/20 24 Active OneTouch Delica Lancets 33G To test blood sugar 4 times daily. 400 Each 1 4 6:47 AM EDT 04/20/20 24 Active EarthineerTouch Verio w/Device Kit Use as directed. 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 10/15/2022 [facility] OTHER*[id number] 01/01/2022 S/P gastric bypass 01/01/2022 [address] AV [...] 8:45 AM EDT): Gabapentin 600 mg at [facility] Assessment & Plan (05/07/2021 11:11 [...] Insulin long-term use 11/19/20182018 Overview (05/20/2019): Duplicate ocean transportation intermediary (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 insulin 11/19/2018 10/08/2022 Morbid [...] T-tube placement 04/16/2017 05/29/2017 [employer] Other*[id number] 04/13/2013 08/27/2016 Overview (04/13/2013): Study Title: Genomic Markers for Patients with Cardiovascular Disease Project # [id number] Software Quality Manager: Siena Laws MD [phone] Hypertensive heart disease 03/25/2013 1 07/29/2016 Neuropathy, [...] yrs 09/16/2018,04/14/2018,03/1104/11/2018 Pneumococcal Conjugate Vacci ne, 20-valent ([id number]) 06/22/2024,12/02/2023(Deferred: - pt states she's already received) [...] Encounter - Joanne Farah OSA - 08/10/2024 3:24 PM EST MyG sent. 08/10/2024 * Telephone Encounter - Patti Hardy LPN [...] EST Home Visit Luis A at Home, [facility] [address] [place] [address] Heidi Garcia, RN [address] [place] [address] 09/02/2024 10:00 AM EST Nurse Only Nutrition & Weight Management, [facility] [address] [place] [address] [place], Nurse Gi Nutrition [facility] [place] [address] 09/30/2024 11:00 AM EDT Office Visit Podiatry [facility] [address] [place] [phone] Calli Avila DPM [address] [place] [address] 12/09/2024 12:54 PM EDT Hospital Encounter OR [facility], Operating Room, [facility] - 4th Floor [address] [place] [phone] Himanshu Rivero, DO [address] [place] [address] 12/09/2024 12:54 PM EDT - 12/09/2024 1:35 PM EDT Surgery OR [facility], Operating Room, [facility] - 4th Floor [address] [phone] Himanshu Rivero, DO [address] [place] [address] COLONOSCOPY FLEXIBLE PROXIMAL DIAGNOSTIC 03/10/2025 1:20 PM EDT Office Visit [address] [place] [phone] Joanne Parks PA-C [address] [place] [address] [place] [address] Scheduled Procedures Name Priority Associated Diagnoses Date/Ti [...] encounter Medical Devices Implanted Type Area Human Resources Assistant Device Identifier Shelf Expiration Date Model / Serial / Lot Coil Vortex 35 Pltinm [id number] - [id number] Implanted:Qty: 1 on 11/27/2021 by Sterling Cates MD [place] [facility] [place]: Upper Arm [employer] : NEURO INTR [id number] 08/15/2024 [id number] / / [id number] Coil Vortex 35 Pltinm 830025 - [id number] Implanted:Qty: 1 on 11/27/2021 by Sterling Cates MD at [place] [facility] Right: Upper Arm [employer] : NEURO INTR [id number] 08/15/2024 [id number] / / [id number] Coil Vortex 35 Pltinm [id number] - [id number] Implanted:Qty: 1 on 11/27/2021 by Sterling Cates MD at OR [facility] Right: Upper Arm [employer] : NEURO INTR [id number] 08/15/2024 [id number] / / [id number] Coil Vortex 35 Pltinm [id number] - [id number] Implanted:Qty: 1 on 11/27/2021 by Sterling Cates MD at [place] [facility] Right: Upper Arm [employer] : NEURO INTR [id number] 05/16/2024 [id number] / / [id number] Azur 35 Detachable 5mm 11cm - [id number] Implanted:Qty: 1 on 03/19/2022 by Jose Devine MD at [place] [facility] Right: Wrist [employer] [id number] 10/18/2025 [id number] / / [id number] Azur 35 Detachable 5mm 11cm - [id number] Implanted:Qty: 1 on 03/19/2022 by Jose Devine MD at OR [facility] Right: Wrist [employer] [id number] 06/19/2026 [id number] / / [id number] Mesh Flat Sheet 10x14 [id number] - [id number] Implanted:Qty: 1 on 12/11/2022 by Eros Dash MD at OR [facility] N/A: Abdomen CR BARD : DAVOL [id number] 06/17/2027 [id number] / / [id number] documented as of this encounter Advance Directives Documents on File Type Date Recorded Patient Help Desk Representative Expl anation POLST 11/13/2020 POLST PENNSYLVA VALERIA [...] Agents on File Name Relationship Healthcare Agent [facility] p Communication Zhen Finley Spouse Health Care Agent Care Teams Forms Designer Relationship Specialty Start Date End Date Luis Fernando Rojas MD PCP - General Family Medicine 09/23/16 documented as of this encounter
--- OUTSIDE RECORDS SUMMARY | 2024-10-05 05:33 | External Medical Summary | Summary of Care ---
Author Name Unknown Organization [facility] Address [address] [place] [address] Phone [phone] Care Team Providers Care Assistant Baseball Coach Name Role Phone Luis Fernando Rojas MD Primary Care Provider [phone] Encounter Details Date Type Department Care Team (Late st Contact Info) Description 08/10/2024 Result Scan Unspecified Department Ulises Stevenson, DO [address] [place] [address] <No scans attached> Allergies Active Allergy Reactions [...] 4 11:01 AM EST 03/20/20 24 Active Sock Monster MediaToLEAFER Verio In Vitro Strip (Glucose Blood) To test blood sugar 4 times daily. 400 Strip 1 4 6:47 AM EDT 04/20/20 24 Active Sock Monster MediaToLEAFER [employer] Lancets 33G To test blood sugar 4 times daily. 400 Each 1 4 6:47 AM EDT 04/20/20 24 Active Sock Monster MediaToLEAFER VerTurbine Truck Engines w/Device Kit Use as directed. 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 10/15/2022 [place] [facility] OTHER*[id number] 01/01/2022 S/P gastric bypass 01/01/[address] [...] 8:45 AM EDT): Gabapentin 600 mg at [facility] Assessment & Plan (05/07/2021 11:11 [...] long-term use 11/19/20182018 Overview (05/20/2019): Duplicate termite 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 insulin 11/19/2018 10/08/2022 Morbid [...] T-tube placement 04/16/2017 05/29/2017 [employer] Other*[id number] 04/13/2013 08/27/2016 Overview (04/13/2013): Study Title: Genomic Markers for Patients with Cardiovascular Disease Project # [id number] Forest Scientist: Siena Laws MD [phone] Hypertensive heart disease 03/25/2013 1 07/29/2016 Neuropathy, [...] yrs 09/16/2018,04/14/2018,03/1104/11/2018 Pneumococcal Conjugate Vacci ne, 20-valent ([id number]) 06/22/2024,12/02/2023(Deferred: - pt states she's already received) [...] No 08/14/2023 Does the household have a [employer] source of income? (Household - for ages [...] Description 08/10/2024 2:40 PM EST Office Visit [facility] [address] [facility] [place] [phone] Joanne Parks PA-C [address] [place] [address] [place] [address] 08/19/2024 10:00 AM EST Home Visit [facility] [address] [facility] [place] [address] Heidi Garcia RN 132 [facility] [place] [address] 09/02/2024 10:00 AM EST Nurse Only Nutrition & Weight Management, [facility] [address] [facility] [place] [address] [place], Nurse Gi Nutrition [facility] [address] [facility] [place] [address] 09/30/2024 11:00 AM EDT Office Visit Podiatry [facility] [address] [place] [phone] Calli Avila, DPRenae [address] [place] [address] 12/09/2024 12:54 PM EDT Hospital Encounter OR GL, Operating Room, [facility] - 4th Floor [address] [place] [phone] Himanshu Rivero, DO [address] [place] [address] 12/09/2024 12:54 PM EDT - 12/09/2024 1:35 PM EDT Surgery OR [facility], Operating Room, [facility] - 4th Floor [address] [place] [phone] Himanshu Rivero, DO [address] [place] [address] COLONOSCOPY FLEXIBLE PROXIMAL DIAGNOSTIC Scheduled Procedures Name Priority Associated Diagnoses Date/Ti [...] this encounter Medical Devices Implanted Type Area Splitter Hand Device Identifier Shelf Expiration Date Model / Serial / Lot Coil Vortex 35 Pltinm [id number] - [id number] Implanted:Qty: 1 on 11/27/2021 by Sterling Cates MD at OR [facility] [place] Right: Upper Arm [employer] : NEURO INTR [id number] 08/15/2024 [id number] Coil Vortex 35 Pltinm [id number] - [id number] Implanted:Qty: 1 on 11/27/2021 by Sterling Cates MD at OR [facility] Right: Upper Arm [employer] : NEURO INTR [id number] 08/15/2024 [id number] Coil Vortex 35 Pltinm 936402 - [id number] Implanted:Qty: 1 on 11/27/2021 by Sterling Cates MD at OR [facility] Right: Upper Arm [employer] : NEURO INTR [id number] 08/15/2024 [id number] / / [id number] Coil Vortex 35 Pltinm 349995 - [id number] Implanted:Qty: 1 on 11/27/2021 by Sterling Cates MD at OR [facility] Right: Upper Arm [employer] : NEURO INTR [id number] 05/16/2024 [id number] 1 / / [id number] Azur 35 Detachable 5mm 11cm - [id number] Implanted:Qty: 1 on 03/19/2022 by Jose Devine MD at OR [facility] Right: Wrist [employer] [id number] 10/18/2025 [id number] / / [id number] Azur 35 Detachable 5mm 11cm - [id number] Implanted:Qty: 1 on 03/19/2022 by Jose Devine MD at OR [facility] Right: Wrist [employer] [id number] 06/19/2026 [id number] / / [id number] Mesh Flat Sheet 10x14 [id number] - [id number] Implanted:Qty: 1 on 12/11/2022 by Eros Dash MD at OR [facility] N/A: Abdomen CR BARD : DAVOL [id number] 06/17/2027 [id number] / / [id number] documented as of this encounter Procedures Procedure Name Priority Date/Time Associated Diagnosis Comments CARDIOLOGY SCANNED RESULT 08/10/2024 documented in this encounter Results * CARDIOLOGY SCANNED RESULT (08/10/2024) 08/10/2024 us Ulises Stevenson DO OTHER Final Result documented in this encounter Advance Directives Documents on File Type Date Recorded Patient Membership Advisor Expl anation POLST 11/13/2020 POLST PENNSYLVA VALERIA [...] Finley Spouse Health Care Agent Care Teams Assistant Baseball Coach Relationship Specialty Start Date End Date Luis Fernando Rojas MD PCP - General Family Medicine 09/23/16 documented as of this encounter
--- OUTSIDE RECORDS SUMMARY | 2024-10-05 05:33 | External Medical Summary | Summary of Care ---
Author Name Unknown Organization [facility] Address [address] [place] [address] Phone [phone] Care Team Providers Care Horse Breaker Name Role Phone Luis Fernando Rojas MD Primary Care Provider [phone] Reason for Visit * Reason Onset Date Comments Appointment 08/10/2024 Colonoscopy Encounter Details Date Type Department Care Team (Late st Contact Info) Description 08/10/2024 Telephone Gastroenterology, [facility] [address] [place] [address] Specified, Zz No Resource [address] [place] [address] Appointment (Colonoscopy ) Allergies Active [...] 4 11:01 AM EST 03/20/20 24 Active PinoyTravelTouch Verio In Vitro Strip (Glucose Blood) To test blood sugar 4 times daily. 400 Strip 1 4 6:47 AM EDT 04/20/20 24 Active OneTouch Delica Lancets 33G To test blood sugar 4 times daily. 400 Each 1 4 6:47 AM EDT 04/20/20 24 Active [employer]oyTravelToSolar Flow-Through Verio w/Device Kit Use as directed. 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 10/15/2022 [facility] OTHER*[id number] 01/01/2022 S/P gastric bypass 01/01/[address] [...] 8:45 AM EDT): Gabapentin 600 mg at [facility] Assessment & Plan (05/07/2021 11:11 AM [...] Insulin long-term use 11/19/20182018 Overview (05/20/2019): Duplicate top frame maker (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 insulin 11/19/2018 10/08/2022 Morbid [...] T-tube placement 04/16/2017 05/29/2017 [employer] Other*[id number] 04/13/2013 08/27/2016 Overview (04/13/2013): Study Title: Genomic Markers for Patients with Cardiovascular Disease Project # [id number] Tread Booker: Siena Laws MD [phone] Hypertensive heart disease 03/25/2013 1 07/29/2016 Neuropathy, [...] yrs 09/16/2018,04/14/2018,03/1104/11/2018 Pneumococcal Conjugate Vacci ne, 20-valent ([id number]) 06/22/2024,12/02/2023(Deferred: - pt states she's already received) [...] No 08/14/2023 Does the household have a [facility] income? (Household - for [...] 12/11/2022 6:51 PM Siena Granados RN * Are you blind or [...] 08/10/2024 9:54 AM EST Colon 12/09 at [facility] OR * Telephone Encounter - Anna Hartley OSA - 08/10/2024 9:06 AM EST Pt seen via video with Emi dupree she ordered a colonoscopy for the pt. Pt has had previous procedures done at [facility] due to health history. Pt is needing or setting please call to schedule. documented in this encounter Plan of Treatment Upcoming Encounters Date Type Department Care Team (Late st Contact Info) Description 08/10/2024 2:40 PM EST Office Visit [address] [place] [phone] Joanne Parks PA-C [address] [place] [address] [place] [address] 08/19/2024 10:00 AM EST Home Visit [facility], [facility] [address] [place] [address] Heidi Garcia, RN [address] [place] [address] 09/02/2024 10:00 AM EST Nurse Only Nutrition & Weight Management, [facility] [address] [place] [address] [facility] Nurse Gi Nutrition [facility] [place] [address] 09/30/2024 11:00 AM EDT Office Visit Podiatry [facility] [address] [place] [phone] Calli Avila DPM [address] [place] [address] 12/09/2024 12:54 PM EDT Hospital Encounter OR [facility], Operating Room, [facility] - 4th Floor [address] [facility] [place] [phone] Himanshu Rivero, DO [address] [place] [address] 12/09/2024 12:54 PM EDT - 12/09/2024 1:35 PM EDT Surgery OR [facility], Operating Room, [facility] - 4th Floor [address] [facility] [phone] Himanshu Rivero, DO [address] [place] [address] COLONOSCOPY FLEXIBLE PROXIMAL DIAGNOSTIC Scheduled Procedures Name [...] this encounter Medical Devices Implanted Type Area Timber Sizer Device Identifier Shelf Expiration Date Model / Serial / Lot Coil Vortex 35 Pltinm [id number] - [id number] Implanted:Qty: 1 on 11/27/2021 by Sterling Cates MD at OR [facility] Right: Upper Arm [employer] : NEURO INTR [id number] 08/15/2024 [id number] / / [id number] Coil Vortex 35 Pltinm [id number] - [id number] Implanted:Qty: 1 on 11/27/2021 by Sterling Cates MD at OR [facility] Right: Upper Arm [employer] : NEURO INTR [id number] 08/15/2024 [id number] / / [id number] Coil Vortex 35 Pltinm [id number] - [id number] Implanted:Qty: 1 on 11/27/2021 by Sterling Cates MD at OR [facility] Right: Upper Arm [employer] : NEURO INTR [id number] 08/15/2024 [id number] / / [id number] Coil Vortex 35 Pltinm [id number] - [id number] Implanted:Qty: 1 on 11/27/2021 by Sterling Cates MD at OR [facility] Right: Upper Arm [employer] : NEURO INTR [id number] 05/16/2024 [id number] / / [id number] Azur 35 Detachable 5mm 11cm - [id number] Implanted:Qty: 1 on 03/19/2022 by Jose Devine MD at OR [facility] Right: Wrist [employer] [id number] 10/18/2025 [id number] / / [id number] Azur 35 Detachable 5mm 11cm - [id number] Implanted:Qty: 1 on 03/19/2022 by Jose Devine MD at OR [facility] Right: Wrist [employer] [id number] 06/19/2026 [id number] / / [id number] Mesh Flat Sheet 10x14 [id number] - [id number] Implanted:Qty: 1 on 12/11/2022 by Eros Dash MD at OR [facility] N/A: Abdomen CR BARD : DAVOL [id number] 06/17/2027 [id number] / / [id number] documented as of this encounter Advance Directives Documents on File Type Date Recorded Patient Instructor Tap Dancing Expl anation POLST 11/13/2020 POLST PENNSYLVA VALERIA [...] [facility] Communication Zhen Finley Spouse Health Care Agent Care Teams Horse Breaker Relationship Specialty Start Date End Date Luis Fernando Rojas MD PCP - General Family Medicine 09/23/16 documented as of this encounter
--- OUTSIDE RECORDS SUMMARY | 2024-10-05 05:33 | External Medical Summary | Summary of Care ---
Author Name Unknown Organization [facility] Address [address] [place] [address] Phone [phone] Care Team Providers Care Youth Care Professional Name Role Phone Luis Fernando Rojas MD Primary Care Provider [phone] Reason for Visit * Reason Comments Diarrhea * Evaluate & Treat - Unlimited Visits (Within 10 days (routine)) - Authorized Specialty Diagnoses / Procedures Referred By Mikey torres Referred To Contact Gastroenterology Diagnoses Diarrhea of presumed infectious origin Luis Fernando Rojas MD Phone: tel: fax: Referral ID Status Reason Start Date Expiration Date Visits Requested Visits Authorized [id number] Authorized Specialty Services Required 03/08/2024 [id number] Encounter Details Date Type Department Care Team (Late st Contact Info) Description 08/10/2024 8:00 AM EST Telemedicine Gastroenterology, [facility] [address] [facility] [place] [address] Emi Queen CRNP [address] [facility] [place] [address] Chronic diarrhea* Allergies Active Allergy Reactions Criticality Noted Date [...] directed. Replace every 14 days (supplied through [facility]) 7 Each 3 05/17/20 21 Active CPAP [...] goal of less than 7.0% ([facility]) Use 4 times daily with insulin [...] 1,000 mcgIndications:S/P gastric bypass 1000 mcg IM [id number] 10/15/2022 07/19/2025 Active vitamin b-12 (Cyanocobalamin) inj 1,000 mcgIndications:Morbid obesity with BMI of 40.0-44.9, adult (HCC),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 [id number] 10/17/2023 12/11/19 25 Active documented as of [...] 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 10/15/2022 [employer] OTHER*[id number] 01/01/2022 S/P gastric bypass 01/01/2022 [address] [...] AM EDT): Gabapentin 600 mg at [facility] Assessment & Plan (05/07/2021 11:11 AM [...] long-term use 11/19/20182018 Overview (05/20/2019): 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 insulin 11/19/2018 10/08/2022 [...] T-tube placement 04/16/2017 05/29/2017 [employer] Other*[id number] 04/13/2013 08/27/2016 Overview (04/13/2013): Study Title: Genomic Markers for Patients with Cardiovascular Disease Project # [id number] Rn Mds: Siena Laws MD [phone] Hypertensive heart disease 03/25/2013 1 07/29/2016 Neuropathy, [...] yrs 09/16/2018,04/14/2018,03/1104/11/2018 Pneumococcal Conjugate Vacci ne, 20-valent ([id number]) 06/22/2024,12/02/2023(Deferred: - pt states she's already received) [...] documented in this encounter Progress Notes * Emi Queen CRNP - 08/10/2024 7:55 AM EST Telemedicine Visit 08/10/2024: REFERRING PHYSICIAN: Cleo Rojas Patient location: HOME. I was in a hospital or clinic location. After connecting through televideo,patient was verified with two unique identifiers. Patient (or authorized legal medical center representative) was then informed that this was a Telemedicine visit and being conducted confidentially over secure lines. Methods to assure confidentiality were taken. Patient acknowledged consent and understanding of pr ivacy and security of the Telemedicine visit. The patient agreed to participate. CC: Diarrhea HPI: Ms. Candi Finley is a 63 yr old female pt of Dr. Crystal silva a hx of CHF, DM2, HLD, ESRD on dialysis, MINISTERIO on CPAP who is referred for diarrhea. This has been present since last year but after her most recent colonoscopy in 2022. She cycles through 2 or 3 days of having 1 or 2 bowel movements daily that are formed then has very urgent large volume diarrhea several times per day for another 2-3 days. Consistency of the diarrhea is either liquid or thick. She has been woken from a good sleep about 1 or 2 times per month by the need to run to the bathroom to defecate. She has tried Imodium 1 tablet per day which sometimes helps. No blood in her bowel movements. No unintentional weight loss. No significant abdominal pain. Family history is positive for a cousin with Crohn's. GI labs: Stool for C-diff and GI path (-) in Mar 2024 GI Imaging: EGD: 2021: - Z-line regular, 38 cm from the incisors. - Jody-en-Y gastrojejunostomy with gastrojejunal anastomosis characterized by healthy appearing mucosa. Colonoscopy: 2022: One 4 mm polyp in the ascending colon, removed with a cold snare. Resected and retrieved. - One 5 mm polyp in the sigmoid colon, removed with a cold snare. Resected and retrieved. - Diverticulosis in the sigmoid colon. - Internal hemorrhoids. - The examination was otherwise normal on direct and retroflexion views Past Medical History: Diagnosis Date Body mass [...] (end stage renal disease) on dialysis (HCC) 03/14/2021 HTN, goal below 130/80 Kidney disease, [...] 07/2009 CPAP 11 cm H2O. C-flex 2 Family History Problem Relation Name Age of [...] Cancer Aunt (Paternal) Breast Cancer Cousin (Paternal) Past Surgical History: Procedure Laterality Date ABD WALL HERNIA REPAIR, LAP, REDUCIBLE N/A 01/28/2022 LAPAROSCOPIC VENTRAL/UMBILICAL HERNIA REPAIR, REDUCIBLE W OR W/O MESH performed by Honorio Ashford MD at OR [facility] AV ACCESS, DIRECT ANASTOMOSIS Right 08/16/2021 ARTERIOVENOUS ANASTOMOSIS OPEN DIRECT ANY SITE performed by Sterling Cates MD at [facility] BREAST BIOPSY Left 12/26/2008 Usual Ductal Hyperplasia BREAST BIOPSY Left 09/20/2010 Benign BX LYMPH NODE DEEP AXIL Right 05/22/2021 BIOPSY LYMPH NODE DEEP AXILLARY OPEN performed by Diamond Rivero MD at OR [facility] COLONOSCOPY, DIAGNOSTIC (RECTUM) 12/02/2013 hyperplastic polyps, diverticulosis, repeat 5 yrs/done @ [facility] COLONOSCOPY, DIAGNOSTIC (RECTUM) 12/11/2017 adenomatous polyps, diverticulosis, repeat 5 yrs/[facility] COLONOSCOPY, DIAGNOSTIC (RECTUM) N/A 02/27/2023 diverticulosis/hemorrhoids/biopsies show adenomatous polyps/recall 5 years/Colonoscopy/[place] CORONARY ANGIOGRAPHY W/LEFT HEART CATH 04/13/2013 CORONARY ANGIOGRAPHY W/LEFT HEART CATH performed by Ulises Reed MD at CARDIAC LABS [facility] DIALYIS CIRCUIT VASCULAR EMBOLIZATION OCCLUSION ENDOVASC IMAGING Right 11/27/2021 EMBOLIZATION DIALYSIS CIRCUIT performed by Sterling Cates MD at OR [facility] EGD, FLEXIBLE, DIAGNOSTIC 05/03/2014 mild-mod inflammation/done @ [facility] EGD, FLEXIBLE, DIAGNOSTIC N/A 04/16/2017 ESOPHAGOGASTRODUODENOSCOPY (EGD), FLEXIBLE, TRANSORAL, DIAGNOSTIC performed by Félix Gilliam OR [facility] EGD, FLEXIBLE, DIAGNOSTIC 05/05/2020 mild-mod inflammation on bx / ESOPHAGOGASTRODUODENOSCOPY (EGD), FLEXIBLE, TRANSORAL, DIAGNOSTIC performed by Adin Borja MD at ENDOSCOPY [facility] EGD, FLEXIBLE, DIAGNOSTIC N/A 04/25/2021 ESOPHAGOGASTRODUODENOSCOPY (EGD), FLEXIBLE, TRANSORAL, DIAGNOSTIC performed by Honorio Almendarez MD atENDOSCOPY [facility] EGD, FLEXIBLE, DIAGNOSTIC 06/13/2021 gastrojejunal anastomosis characterized by ulceration, repeat 2 mo / [facility] IDENTIFY SENTINEL NODE, RADIOACTIVE TRACER Right 05/22/2021 INJECTION PROCEDURE FOR IDENTIFICATION SENTINEL NODE performed by Diamond Rivero MD at OR [facility] INFORMATION Left 2019 Pacemaker placement. INTRO CATH DIALYSIS CIRCUIT DX ANGIOGRAPHY FLUORO S&I Right 10/10/2022 AV FISTULOGRAM DIAGNOSTIC performed by Jose Devine MD at OR [facility] INTRO CATH DIALYSIS CIRCUIT W/TRANSCATH PLACEMENT IV STENT Right 03/19/2022 AV FISTULOGRAM STENT & PERIPHERAL ANGIOPLASTY performed by Jose Devine MD at OR [facility] INTRO CATH DIALYSIS CIRCUIT W/TRANSCATH PLACEMENT IV STENT Right 05/13/2023 AV FISTULOGRAM STENT & PERIPHERAL ANGIOPLASTY performed by Williams Matt MD at OR [facility] INTRO CATH DIALYSIS CIRCUIT W/TRANSCATH PLACEMENT IV STENT Right 12/02/2023 AV FISTULOGRAM STENT & PERIPHERAL ANGIOPLASTY performed by Micheal Urena MD at OR [facility] INTRO CATH DIALYSIS CIRCUIT W/TRANSCATH PLACEMENT IV STENT Right 06/01/2024 AV FISTULOGRAM STENT & PERIPHERAL ANGIOPLASTY performed by Beto Torrez MD at OR [facility] INTRO CATH DIALYSIS CIRCUIT W/TRANSLUM BALLOON ANGIOPLASTY Right 11/27/2021 AV FISTULOGRAM & PERIPHERAL ANGIOPLASTY performed by Sterling Cates MD at OR [facility] INTRO CATH DIALYSIS CIRCUIT W/TRANSLUM BALLOON ANGIOPLASTY Right 05/30/2022 AV FISTULOGRAM & PERIPHERAL ANGIOPLASTY performed by Beto Torrez MD at OR [facility] INTRO CATH DIALYSIS CIRCUIT W/TRANSLUM BALLOON ANGIOPLASTY Right 02/25/2023 AV FISTULOGRAM & PERIPHERAL ANGIOPLASTY performed by Jose Devine MD at OR [facility] INTRO CATH DIALYSIS CIRCUIT W/TRANSLUM BALLOON ANGIOPLASTY Right 03/30/2024 AV FISTULOGRAM & PERIPHERAL ANGIOPLASTY performed by Micheal Urena MD at OR [facility] IR DUPLEX ULTRASOUND (FOR INTERVENTIONAL RADIOLOGY USE ONLY) 03/02/2021 IR FISTULAGRAM AV DIALYSIS SHUNT IR VENOUS ACCESS NON-MEDIPORT 07/18/2022 LAPAROSCOPE PROCEDURE, LIVER N/A 04/16/2017 UNLISTED LAPAROSCOPIC PROCEDURE LIVER performed by Sukumar Polanco MD at [facility] LAPAROSCOPE PROCEDURE, LIVER N/A 01/28/2022 UNLISTED LAPAROSCOPIC PROCEDURE LIVER performed by Honorio Ashford MD at [facility] LAPAROSCOPIC GASTRIC BYPASS/JODY-EN-Y N/A 04/16/2017 LAPAROSCOPIC GASTRIC RESTRICTIVE BYPASS JODY EN Y performed by Sukumar Polanco MD at [facility] LAPAROSCOPY; CHOLECYSTECTOMY N/A 04/16/2017 LAPAROSCOPIC CHOLECYSTECTOMY performed by Sukumar Polanco MD at [facility] MISCELLANEOUS ORDER ([facility] ONLY) 05/2009 breast [...] Sukumar Polanco MD at OR [facility] REPLACE,COMP,FLACO CENT ACC DEV N/A 03/22/2021 REPLACEMENT COMPLETE TUNNELED CENTRAL CATHETER NO PORT performed by Luis Fernando Hassan DO at OR [facility] REVISE STOMACH-BOWEL FUSION N/A 01/28/2022 REVISION GASTROJEJUNAL ANASTOMOSIS performed by Honorio Ashford MD at OR [facility] RMV MALG LSN TRK/ARM/LG >4.0CM Right 05/22/2021 EXCISION MALIGNANT TRUNK ARM LEG OVER 4CM performed by Diamond Rivero MD at OR [facility] RPR AA HERNIA 1ST 3-10 CM REDUCIBLE N/A 12/11/2022 INCISIONAL/VENTRAL/SPIGELIAN HERNIA REPAIR INITIAL 3-10 CM REDUCIBLE performed by Eros Dash MD at OR [facility] TOTAL ABD HYSTERECTOMY W/WO REMOVAL OF TUBE(S) Bilateral age 33 TOTAL HYSTERECTOMY TAHBSO (endometrial ca) TRANSECTION VAGUS NRV,TRUNCAL N/A 01/28/2022 LAPAROSCOPIC TRANSECTION VAGUS NERVES TRUNCAL performed by Honorio Ashford MD at OR [facility] UPPER GI ENDOSCOPY Social History Tobacco Use Smoking status: Never Passive exposure: Never Smokeless tobacco: Never Vaping Use Vaping status: Never Used Substance Use Topics Alcohol use: No Drug use: No Review of patient's allergies indicates: Allergen Reactions Salvador Inhibitors Other (Please comment) and Cough HyperKalemia Current Outpatient Medications Medication Sig Dispense Refill Melatonin 10 MG Tablet Take 12 mg by mouth at bedtime. Aspirin 81 MG Oral Tablet Chewable Take 1 Tab by mouth at bedtime. with food. 90 Tab 3 FreeStyle Jennifer 2 Sensor Use as directed. Replace every 14 days (supplied through [facility]) 7 Each 3 CPAP every night at [...] 1 Tablet before bedtime. 180 Tablet 4 [email or web address] In Vitro Strip (Glucose Blood) To test blood sugar 4 times daily. 400 Strip 1 [employer] Delica Lancets 33G To test blood sugar 4 times daily. 400 Each 1 [employer] w/Device Kit Use as directed. 1 Kit [...] mouth in the morning. 90 Tablet 1 Current Facility-Administered Medications Medication Dose Route Frequency Provider Last Rate Last Admin vitamin b-12 (Cyanocobalamin) inj 1,000 mcg 1,000 mcg Intramuscular Q12 Weeks Luis Fernando Rojas MD 1,000 mcg at 06/02/24 1019 vitamin b-12 (Cyanocobalamin) inj 1,000 mcg 1,000 mcg Intramuscular Q12 Weeks Cleo Fonseca PA-C REVIEW OF SYSTEMS: A total of 12 systems were reviewed. All other findings negative except as noted in HPI. EXAM: GENERAL: Appears stated age, well developed, well nourished in no acute distress. SKIN: No apparent rashes, jaundice, ecchymosis, oral lesions. HEENT: Neck supple. Normocephalic, sclera non-icteric LUNGS: No respiratory distress or apparent accessory muscles used. Normal chest excursion. No audible wheezing NEURO: No lateralizing findings. Cranial nerves IV, V, , VII, XI and XII in tact. Motor grossly normal. PSYCHOSOCIAL: Appropriate affect, normal memory recall, ASSESSMENT AND PLAN: Chronic diarrhea (Primary) - TISSUE TRANSGLUTAMINASE IGA ANTIBODY; Future; Expected date: 08/10/2024 - IGA; Future; Expected date: 08/10/2024 - TSH WITH FREE T4 IF INDICATED; Future; Expected date: 08/10/2024 - Colestipol HCl 1 GM Oral Tablet (Colestid); 2 tablets at noon daily if needed for diarrhea - Continue OTC Imodium on an as needed basis. May take up to 3/day. Keep a food diary, look for patterns. - COLONOSCOPY, DIAGNOSTIC (RECTUM) Message sent to GI nurses to fax lab orders to [facility] in [place] Follow Up: Return in about 4 months (around 12/08/2024). - ED for emergencies - Please call with any questions or concerns RETURN TO CLINIC: about 4 m, after colonoscopy. I spent a total of 60 minutes on the date of service in review of patient's record, and previously obtained information in person and appropriate medical visit, discussion and education of plan, withpatient and/or caregiver, placing orders for tests/referral/procedures as medically necessary and documentation of pertinent clinical information in patient's medical records for their visit today. LUCRECIA Morales 08/10/2024 7:55 AM R: 08/10/2024 documented in this encounter Plan of Treatment Upcoming Encounters Date Type Department Care Team (Late st Contact Info) Description 08/10/2024 2:40 PM EST Office Visit Dermatology, [facility] [address] [phone] Joanne Parks PA-C [address] [place] [address] [place] [address] 08/19/2024 10:00 AM EST Home Visit [facility] [address] [place] [address] Heidi Garcia RN [address] [place] [address] 09/02/2024 10:00 AM EST Nurse Only Nutrition & Weight Management, [facility] [address] [place] [address] [facility], Nurse Gi Nutrition [facility] [address] [facility] [place] [address] 09/30/2024 11:00 AM EDT Office Visit Podiatry [facility] [address] [place] [phone] Calli Avila DPM [address] [place] [address] Scheduled Orders Name Type Priority Associated Diagnoses Orde r Schedule TISSUE TRANSGLUTAMINASE IGA ANTIBODY Lab Routine Chronic diarrhea Expected: 08/10/2024, Expires: 08/10/2025 IGA Lab Routine Chronic diarrhea Expected: 08/10/2024, Expires: 08/10/2025 TSH WITH FREE T4 IF INDICATED Lab Routine Chronic diarrhea Expected: 08/10/2024, Expires: 08/10/2025 COLONOSCOPY, DIAGNOSTIC (RECTUM) Procedures Routine Chronic diarrhea Ordered: 08/10/2024 Scheduled Procedures Name Priority Associated Diagnoses Date/Ti [...] this encounter Medical Devices Implanted Type Area Linux System Engineer Device Identifier Shelf Expiration Date Model / Serial / Lot Coil Vortex 35 Pltinm [id number] - [id number] Implanted:Qty: 1 on 11/27/2021 by Sterling Cates MD at OR [facility] Right: Upper Arm [employer] : NEURO INTR [id number] 08/15/2024 [id number] 1 / / [id number] Coil Vortex 35 Pltinm [id number] - [id number] Implanted:Qty: 1 on 11/27/2021 by Sterling Cates MD at OR [facility] Right: Upper Arm [employer] : NEURO INTR [id number] 08/15/2024 [id number] 1 / / [id number] Coil Vortex 35 Pltinm [id number] - [id number] Implanted:Qty: 1 on 11/27/2021 by Sterling Cates MD at OR [facility] Right: Upper Arm [employer] : NEURO INTR [id number] 08/15/2024 [id number] 1 / / [id number] Coil Vortex 35 Pltinm [id number] - [id number] Implanted:Qty: 1 on 11/27/2021 by Sterling Cates MD at OR [facility] Right: Upper Arm [employer] : NEURO INTR [id number] 05/16/2024 [id number] 1 / / [id number] Azur 35 Detachable 5mm 11cm - [id number] Implanted:Qty: 1 on 03/19/2022 by Jose Devine MD at OR [facility] Right: Wrist Plasticell [employer]AT [id number] 10/18/2025 [id number] / / [id number] Azur 35 Detachable 5mm 11cm - [id number] Implanted:Qty: 1 on 03/19/2022 by Jose Devine MD at OR [facility] Right: Wrist TYMR [id number] 06/19/2026 [id number] / / [id number] Mesh Flat Sheet 10x14 [id number] - [id number] Implanted:Qty: 1 on 12/11/2022 by Eros Dash MD at OR [facility] N/A: Abdomen CR BARD : DAVOL [id number] 06/17/2027 [id number] / / [id number] documented as of this encounter Visit Diagnoses Diagnosis Marginal ulcer- Primary Gastrojejunal ulcer, unspecified as acute or chronic, without mention of hemorrhage, perforation, or obstruction ESRD (end stage renal disease) on dialysis ([facility]) End stage renal disease Hypertensive 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 congestive heart failure and stage 5 chronic kidney disease on chronic dialysis ([facility]) Acute posthemorrhagic anemia Type 2 diabetes mellitus 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 dialysis, with long-term current use of insulin ([facility]) Hypothyroidism (acquired) Unspecified hypothyroidism Malignant melanoma of right upper extremity ([facility]) Aortic atherosclerosis ([facility]) Atherosclerosis of aorta Diabetic polyneuropathy associated with type 2 diabetes mellitus ([facility]) Advanced care planning/counseling discussion- Primary Other specified counseling Hypertensive 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 congestive heart failure and stage 5 chronic kidney disease on chronic dialysis (HCC) Presence of cardiac pacemaker Cardiac pacemaker in situ SSS (sick sinus syndrome) ([facility]) Sinoatrial node dysfunction MINISTERIO on CPAP Obstructive sleep apnea (adult) (pediatric) Hypothyroidism (acquired) Unspecified hypothyroidism Type 2 diabetes mellitus 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 dialysis, with long-term current use of insulin ([facility]) S/P gastric bypass Bariatric surgery status ESRD (end stage renal disease) on dialysis ([facility]) End stage renal disease Recurrent ventral incisional hernia Incisional hernia without mention of obstruction or gangrene NO SHOW/FAILED TO KEEP APPOINTMENT- Primary Chronic diastolic heart failure (HCC)- Primary Chronic diastolic heart failure HTN, goal below 140/90 Unspecified essential hypertension Type 2 diabetes mellitus with hemoglobin A1c goal of less than 7.0% ([facility]) Hypothyroidism (acquired) Unspecified hypothyroidism Dyslipidemia, goal [...] skin Scar condition and fibrosis of skin Chronic diarrhea- Primary Diarrhea documented in this encounter Advance Directives Documents on File Type Date Recorded Patient Project Accountant Expl anation POLST 11/13/2020 POLST NASREEN VALERIA ORDERS FOR LIFE-SUSTAINING [...] Agents on File Name Relationship [facility] Zhen Finley Spouse Health Care Agent Care Teams Youth Care Professional Relationship Specialty Start Date End Date Luis Fernando Rojas MD PCP - General Family Medicine 09/23/16 documented as of this encounter
--- OUTSIDE RECORDS SUMMARY | 2024-10-05 05:33 | External Medical Summary | Summary of Care ---
Author Name Unknown Organization [facility] Address [address] [place] [address] Phone [phone] Care Team Providers Care Imagery Analyst Name Role Phone Luis Fernando Rojas MD Primary Care Provider [phone] Reason for Visit * Reason Onset Date Comments Appointment 08/10/2024 Colonoscopy Encounter Details Date Type Department Care Team (Late st Contact Info) Description 08/10/2024 Telephone Gastroenterology, [facility] [address] [place] [address] Specified, Zz No Resource [address] [place] [address] Appointment (Colonoscopy ) Allergies Active [...] 4 11:01 AM EST 03/20/20 24 Active GreatistTouch Verio In Vitro Strip (Glucose Blood) To test blood sugar 4 times daily. 400 Strip 1 4 6:47 AM EDT 04/20/20 24 Active OneTouch Delica Lancets 33G To test blood sugar 4 times daily. 400 Each 1 4 6:47 AM EDT 04/20/20 24 Active GreatistToThingies Verio w/Device Kit Use as directed. 1 [...] 1,000 mcgIndications:S/P gastric bypass 1000 mcg IM [id number] 10/15/2022 07/19/2025 Active vitamin b-12 (Cyanocobalamin) inj 1,000 mcgIndications:Morbid obesity with BMI of 40.0-44.9, adult (HCC),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 [id number] 10/17/2023 12/11/19 25 Active documented as of [...] 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 10/15/2022 MORFIN RESEARCH OTHER*[id number] 01/01/2022 S/P gastric bypass 01/01/[address] [...] 8:45 AM EDT): Gabapentin 600 mg at [facility] Assessment & Plan (05/07/2021 11:11 AM [...] long-term use 11/19/20182018 Overview (05/20/2019): 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 (Household - for [...] 12/11/2022 6:51 PM EDRabia Owens RN * Do you have serious difficulty [...] encounter Miscellaneous Notes * Telephone Encounter - Anna Hartley OSA - 08/10/2024 9:06 AM EST Pt seen via video with Emi dupree she ordered a colonoscopy for the pt. Pt has had previous procedures done at [facility] hospital due to health history. Pt is needing or setting please call to schedule. documented in this encounter Plan of Treatment Upcoming Encounters Date Type Department Care Team (Late st Contact Info) Description 08/10/2024 2:40 PM EST Office Visit Dermatology, [address] [place] [phone] Joanne Parks PA-C [address] [place] [address] [place] [address] 08/19/2024 10:00 AM EST [facility] Visit [facility] [address] [facility] [place] [id number] Jose, Heidi H, RN [address] [place] [address] 09/02/2024 10:00 AM EST Nurse Only Nutrition & Weight Management, [facility] [address] [place] [address] [facility], Nurse Gi Nutrition [facility] [address] [place] [address] 09/30/2024 11:00 AM EDT Office Visit Podiatry [facility] [address] [place] [address] Calli Avila, DAIANA [address] [place] [address] Scheduled Procedures Name Priority Associated Diagnoses Date/Ti [...] this encounter Medical Devices Implanted Type Area On Site Nurse Device Identifier Shelf Expiration Date Model / Serial / Lot Coil Vortex 35 Pltinm [id number] - [id number] Implanted:Qty: 1 on 11/27/2021 [place] [facility] [place] Upper Arm [employer] : NEURO INTR [id number] 08/15/2024 [id number] Coil Vortex 35 Pltinm [id number] - [id number] Implanted:Qty: 1 on 11/27/2021 by Sterling Cates MD [place] [facility] [place] Upper Arm [employer] : NEURO INTR [id number] 08/15/2024 [id number] Coil Vortex 35 Pltinm [id number] - [id number] Implanted:Qty: 1 on 11/27/2021 by Sterling Cates MD [place] [facility] [place] Upper Arm [employer] : NEURO INTR [id number] 08/15/2024 [id number] Coil Vortex 35 Pltinm [id number] - [id number] Implanted:Qty: 1 on 11/27/2021 by Sterling Cates MD [place] [facility] [place] Upper Arm [employer] : NEURO INTR [id number] 05/16/2024 [id number] Azur 35 Detachable 5mm 11cm - [id number] Implanted:Qty: 1 on 03/19/2022 by Jose Devine MD [place] [facility] [place] Wrist [employer] [id number] 10/18/2025 [id number] / / [id number] Azur 35 Detachable 5mm 11cm - [id number] Implanted:Qty: 1 on 03/19/2022 by Jose Devine MD [place] [facility] [place] Wrist [employer] [id number] 06/19/2026 [id number] / / [id number] Mesh Flat Sheet 10x14 [id number] - [id number] Implanted:Qty: 1 on 12/11/2022 by Eros Dash MD [place] [facility] [place]A: Abdomen CR BARD : DAVOL [id number] 06/17/2027 [id number] / / [id number] documented as of this encounter Advance Directives Documents on File Type Date Recorded Patient Assisted Living Assistant Expl anation POLST 11/13/2020 POLST PENNSYLVA [...] patient have Health Care Power of Attor lninea? No * Full Code Date Activated Date [...] Finley Spouse Health Care Agent Care Teams Imagery Analyst Relationship Specialty Start Date End Date Luis Fernando Rojas MD PCP - General Family Medicine 09/23/16 documented as of this encounter
--- OUTSIDE RECORDS SUMMARY | 2024-10-05 05:34 | External Medical Summary | Summary of Care ---
Author Name Unknown Organization [facility] Address [address] [place] [address] Phone [phone] Care Team Providers Care Senior Linux Systems Engineer Name Role Phone Luis Fernando Rojas MD Primary Care Provider [phone] Encounter Details Date Type Department Care Team (Late st Contact Info) Description 08/09/2024 Population Health External Data Unspecified Department Allergies Active Allergy Reactions Criticality Noted Date Comments Salvador Inhibitors Other (Please comment),Cough High HyperKalemia documented as of this encounter (statuses as of 08/09/2024) Medications Melatonin 10 MG Tablet Take 12 [...] 4 11:01 AM EST 03/20/20 24 Active RevolutionCreditTouch Verio In Vitro Strip (Glucose Blood) To test blood sugar 4 times daily. 400 Strip 1 4 6:47 AM EDT 04/20/20 24 Active RevolutionCreditTouch Delica Lancets 33G To test blood sugar 4 times daily. 400 Each 1 4 6:47 AM EDT 04/20/20 24 Active RevolutionCreditTouch Verio w/Device Kit Use as directed. 1 [...] for further management. 90 Capsule 3 08/06/19 Active amLODIPine Besylate 5 MG Oral Tablet (Norvasc) TAKE ONE TABLET BY MOUTH EVERY DAY IN THE MORNING 90 Tablet 1 08/05/19 Active Atorvastatin Calcium 40 MG Oral Tablet (Lipitor)Indicat ions:Dyslipidemi a, goal LDL below 100 Take 1 Tablet by mouth in the morning. 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 10/15/2022 MORFIN RESEARCH OTHER*[id number] 01/01/2022 S/P gastric bypass 01/01/[address] [...] as of this encounter (statuses as of 08/09/2024) Resolved Problems Problem Noted Date Diagnosed Date [...] T-tube placement 04/16/2017 05/29/2017 Gen[employer] Other*[id number] 04/13/2013 08/27/2016 Overview (04/13/2013): Study Title: Genomic Markers for Patients with Cardiovascular Disease Project # [id number] Life Scientist: Siena Laws MD [phone] Hypertensive heart disease 03/25/2013 1 07/29/2016 Neuropathy, [...] as of this encounter (statuses as of 08/09/2024) Immunizations Name Administration Dates Next Due COVID-19 mRNA, LNP-s, No Pre serve, 2-Dose Series (Moderna) 04/09/2021,09/23/2020,08/19/2020 COVID-19, LNP-s, No Preserve , Espinoza-sucrose, Ages 12+ (Pfizer) 01/08/2022 COVID-19, MRNA-LNP, PF, 30 M CG/0.3 mL, 12 YRS AND ABOVE, IM (Intellinote-ComirnatContraFect) 06/02/2024 HEPATITIS B VACCINE, RECOMB, 20 MCG/ML, ADULT (HEPLISAV-B) 09/05/2021,05/09/2021,04/04/2021,02/18 Hepatitis B, 20+ yrs 09/16/2018,04/14/2018,03/1104/11/2018 Pneumococcal Conjugate Vacci ne, 20-valent (Uwkilpg43) 06/22/2024,12/02/2023(Deferred: - pt states she's already received) [...] No 08/14/2023 Does the household have a [facility] source of income? (Household - for ages [...] Contact Info) Description 08/10/2024 8:00 AM EST Office Visit Gastroenterology, [facility] [address] [place] [address] Emi Queen CRNP [address] [place] [address] 08/10/2024 2:40 PM EST Office Visit [facility] [place] [phone] Joanne Parks PALinn [address] [place] [address] [place] [address] 08/19/2024 10:00 AM EST [facility] [address] [place] [address] Heidi Garcia RN [address] [facility] [place] [address] 09/02/2024 10:00 AM EST Nurse Only Nutrition & Weight Management, [facility] [address] [place] [address] Boni Nurse Gi Nutrition [facility] [address] [place] [address] 09/30/2024 11:00 AM EDT Office Visit Podiatry [facility] [address] [place] [address] Calli Avila, DAIANA [address] [place] [address] Scheduled Procedures Name Priority Associated Diagnoses Date/Ti [...] this encounter Medical Devices Implanted Type Area Shredder Operator Device Identifier Shelf Expiration Date Model / Serial / Lot Coil Vortex 35 Pltinm [id number] - [id number] Implanted:Qty: 1 on 11/27/2021 by Sterling Cates MD [place] [facility] [place]: Upper Arm [employer] : NEURO INTR [id number] 08/15/2024 [id number] / / [id number] Coil Vortex 35 Pltinm [id number] - [id number] Implanted:Qty: 1 on 11/27/2021 by Sterling Cates MD [place] [facility] [place]: Upper Arm [employer] : NEURO INTR [id number] 08/15/2024 [id number] / / [id number] Coil Vortex 35 Pltinm 518600 - [id number] Implanted:Qty: 1 on 11/27/2021 by Sterling Cates MD [place] [facility] [place]: Upper Arm [employer] : NEURO INTR [id number] 08/15/2024 [id number] / / [id number] Coil Vortex 35 Pltinm [id number] - [id number] Implanted:Qty: 1 on 11/27/2021 by Sterling Cates MD [place] [facility] [place]: Upper Arm [employer] : NEURO INTR [id number] 05/16/2024 [id number] / / [id number] Azur 35 Detachable 5mm 11cm - [id number] Implanted:Qty: 1 on 03/19/2022 by Jose Devine MD [place] [facility] [place] Right: Wrist [employer] [id number] 10/18/2025 [id number] / / [id number] Azur 35 Detachable 5mm 11cm - [id number] Implanted:Qty: 1 on 03/19/2022 by Jose Devine MD [place] [facility] [place]: Wrist [employer] [id number] 06/19/2026 [id number] / / [id number] Mesh Flat Sheet 10x14 [id number] - [id number] Implanted:Qty: 1 on 12/11/2022 by Eros Dash MD [place] [facility] [place] N/A: Abdomen CR BARD : DAVOL [id number] 06/17/2027 [id number] / / [id number] documented as of this encounter Advance Directives Documents on File Type Date Recorded Patient Back Wedger Expl anation POLST 11/13/2020 POLST PEN[place]YLVA VALERIA [...] Agents on File Name Relationship Healthcare Agent [facility] p Communication Zhen Finley Spouse Health Care Agent Care Teams Senior Linux Systems Engineer Relationship Specialty Start Date End Date Luis Fernando Rojas MD PCP - General Family Medicine 09/23/16 documented as of this encounter
--- OUTSIDE RECORDS SUMMARY | 2024-10-05 05:34 | External Medical Summary | Summary of Care ---
Author Name Unknown Organization [facility] Address [address] [place] [address] Phone [phone] Care Team Providers Care Manager Configuration Name Role Phone Luis Fernando Rojas MD Primary Care Provider [phone] Reason for Visit * Reason Onset Date Comments Pre Cert/Prior Auth 07/27/2024 Auryxia (non formulary for 2024) Encounter Details Date Type Department Care Team (Late st Contact Info) Description 07/27/2024 Telephone NephrologyDella [address] [place] [address] Sameer Hassan MD [address] [facility] [place] [address] Pre Cert/Prior Auth ( Auryxia (non formula... Allergies Active Allergy Reactions Criticality Noted Date Comments Salvador Inhibitors Other (Please comment),Cough High HyperKalemia documented as of this encounter (statuses as of 08/03/2024) Medications Melatonin 10 MG Tablet Take 12 [...] for further management. 90 Capsule 3 4 9:07 AM EST 09/10/19 24 Active Insulin Glargine Solostar [...] mouth in the morning. 03/23/20 24 Active TRUSTeio In Vitro Strip (Glucose Blood) To test blood sugar 4 times daily. 400 Strip 1 4 6:47 AM EDT 04/20/20 24 Active PiperToImageSpike Delica Lancets 33G To test blood sugar 4 times daily. 400 Each 1 4 6:47 AM EDT 04/20/20 24 Active PiperToImageSpike Verio w/Device Kit Use as directed. 1 Kit 4 6:47 AM EDT 04/20/20 Active buPROPion HCl ER (SR) 150 MG Oral Tablet Extended Release 12 Hour (Wellbutrin SR) Take 1 Tablet by mouth every evening. 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 10/15/2022 MORFIN RESEARCH OTHER*[id number] 01/01/2022 S/P gastric bypass 01/01/[address]22 [address] [...] 8:45 AM EDT): Gabapentin 600 mg at [facility] Assessment & Plan (05/07/2021 [...] as of this encounter (statuses as of 08/03/2024) Resolved Problems Problem Noted Date Diagnosed Date [...] T-tube placement 04/16/2017 05/29/2017 Gen[employer] Other*[id number] 04/13/2013 08/27/2016 Overview (04/13/2013): Study Title: Genomic Markers for Patients with Cardiovascular Disease Project # [id number] Interpersonal Communications Professor: Siena Laws MD [phone] Hypertensive heart disease 03/25/2013 1 07/29/2016 Neuropathy, [...] as of this encounter (statuses as of 08/03/2024) Immunizations Name Administration Dates Next Due COVID-19 mRNA, LNP-s, No Pre serve, 2-Dose Series (Moderna) 04/09/2021,09/23/2020,08/19/2020 COVID-19, LNP-s, No Preserve , Espinoza-sucrose, Ages 12+ (Pfizer) 01/08/2022 COVID-19, MRNA-LNP, PF, 30 M CG/0.3 mL, 12 YRS AND ABOVE, IM (PFIZER-Comirnaty) 06/02/2024 HEPATITIS B VACCINE, RECOMB, 20 MCG/ML, ADULT (HEPLISAV-B) 09/05/2021,05/09/2021,04/04/2021,02/18 Hepatitis B, 20+ yrs 09/16/2018,04/14/2018,03/1104/11/2018 Pneumococcal Conjugate Vacci ne, 20-valent (Mapqjcj33) 06/22/2024,12/02/2023(Deferred: - pt states she's already received) [...] No 08/14/2023 Does the household have a [facility] source of income? (Household - for [...] Telephone Encounter - Crystal Alfonso LPN - 07/28/2024 12:19 PM EST This is a dialysis pt will send to [facility] * Telephone Encounter - Gabby Hills OSA - 07/28/2024 11:26 AM EST Do not see script. Please advise what is the medication strength, instructions qty and day supply requested? [place] reply back to p [phone] Thank you Gabby Hills Roller Mill Tender [facility] 07/28/2024,11:26 AM * Telephone Encounter - Adela Jiang CPhT - 07/27/2024 9:19 AM EST Pharmacy calling to inform doctor that the patient's medication has a high copay and is requesting an alternative. Did confirm this information with the pharmacy. Pt's current insurance information is as follows: Patient name: Candi Finley ID number: [id number] BIN number: [id number] PCN number: [id number] Group number: none Subscriber name: Candi Finley Primary or Secondary Insurance:Primary Medication: Auryxia (non formulary for 2024) Reason for Request: non formulary, would require a formulary exception prior auth for coverage Pharmacy and phone number: [facility] [phone] Rx plan and phone number: [facility] [phone] Is this a new medication for the patient? No. How did the patient obtain the medication on the lastfill? No longer formulary for 2024 What alternative medications does the pharmacy have in stock?: none Thank you, Adela Jiang CphT [facility] 07/27/24 documented in this encounter Plan of Treatment Upcoming Encounters Date Type Department Care Team (Late st Contact Info) Description 08/10/2024 8:00 AM EST Office Visit Gastroenterology, [facility] [address] [place] [address] Emi Queen CRNP [address] [place] [address] 08/10/2024 2:40 PM EST Office [facility] [place] [facility] [address] [facility] [place] [phone] Joanne Parks PA-C [address] [place] [address] [place] [address] 08/19/2024 10:00 AM EST Home Visit [facility] [address] [place] [address] Heidi Garcia RN [address] [place] [address] 09/02/2024 10:00 AM EST Nurse Only Nutrition & Weight Management, [facility] [address] [place] [address] Boni, Nurse Gi Nutrition [facility] [address] [place] [address] 09/30/2024 11:00 AM EDT Office Visit Podiatry [facility] [address] [place] [phone] Calli Avila, DAIANA [address] [place] [address] Scheduled Procedures Name Priority Associated Diagnoses Date/Ti [...] this encounter Medical Devices Implanted Type Area Business Analytics Manager Device Identifier Shelf Expiration Date Model / Serial / Lot Coil Vortex 35 Pltinm [id number] - [id number] Implanted:Qty: 1 on 11/27/2021 [place] C[place] [facility] [place] Upper Arm [employer] : NEURO INTR [id number] 08/15/2024 [id number] Coil Vortex 35 Pltinm [id number] - [id number] Implanted:Qty: 1 on 11/27/2021 by Sterling Cates MD [place] [facility] [place]: Upper Arm [employer] : NEURO INTR [id number] 08/15/2024 [id number] Coil Vortex 35 Pltinm 062508 - [id number] Implanted:Qty: 1 on 11/27/2021 by Sterling Cates MD [place] [facility] [place]: Upper Arm [employer] : NEURO INTR [id number] 08/15/2024 [id number] Coil Vortex 35 Pltinm [id number] - [id number] Implanted:Qty: 1 on 11/27/2021 by Sterling Cates MD [place] [facility] [place]: Upper Arm [employer] : NEURO INTR [id number] 05/16/2024 [id number] Azur 35 Detachable 5mm 11cm - [id number] Implanted:Qty: 1 on 03/19/2022 by Jose Devine MD [place] [facility] [place]: Wrist [employer] [id number] 10/18/2025 [id number] / / [id number] Azur 35 Detachable 5mm 11cm - [id number] Implanted:Qty: 1 on 03/19/2022 by Jose Devine MD [place] [facility] [place] [place]: Wrist [employer] [id number] 06/19/2026 [id number] / / [id number] Mesh Flat Sheet 10x14 [id number] - [id number] Implanted:Qty: 1 on 12/11/2022 by Eros Dash MD [place] [facility] [place]A: Abdomen CR BARD : DAVOL [id number] 06/17/2027 [id number] / / [id number] documented as of this encounter Advance Directives Documents on File Type Date Recorded Patient Graphic Artist Expl reagan FIGUEROA 11/13/2020 POLST DOWNEY VALERIA ORDERS FOR LIFE-SUSTAINING [...] Spouse Health Care Agent Care Teams Manager Configuration Relationship Specialty Start Date End Date Luis Fernando Rojas MD PCP - General Family Medicine 09/23/16 documented as of this encounter
--- OUTSIDE RECORDS SUMMARY | 2024-10-05 05:34 | External Medical Summary | Summary of Care ---
Author Name Unknown Organization [facility] Address [address] [place] [address] Phone [phone] Care Team Providers Care Senior Finance Manager Name Role Phone Luis Fernando Rojas MD Primary Care Provider [phone] Reason for Visit * Reason Onset Date Comments Durable Medical Equipment 08/06/2024 Jennifer 2 from [facility] Medical Encounter Details Date Type Department Care Team (Late st Contact Info) Description 08/06/2024 Telephone Pharmacy, [facility] [address] [place] [address] Vera Langston, [facility] [address] [place] [address] Durable Medical Equipment (Jennifer 2 from [facility]... Allergies Active Allergy Reactions Criticality Noted Date Comments Salvador Inhibitors Other (Please comment),Cough High HyperKalemia documented as of this encounter (statuses as of 08/06/2024) Medications Melatonin 10 MG Tablet Take 12 [...] every 14 days (supp[place] through [facility] 7 Each 3 05/17/20 21 Active CPAP [...] 4 2:12 PM EDT 09/10/19 24 Active Insulin Glargine Solostar [...] less than 7.0% ([facility]) Inject 14 units with breakfast, 4 units [...] 4 11:01 AM EST 03/20/20 24 Active Autogeneration MarketingTouch Verio In Vitro Strip (Glucose Blood) To test blood sugar 4 times daily. 400 Strip 1 4 6:47 AM EDT 04/20/20 24 Active OneTouch Delica Lancets 33G To test blood sugar 4 times daily. 400 Each 1 4 6:47 AM EDT 04/20/20 24 Active Autogeneration MarketingTouch Verio w/Device Kit Use as directed. 1 [...] or chew. 50 Capsule 1 07/15/20 Active Gabapentin 300 MG Oral Capsule (Neurontin) [...] mouth in the morning. 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 Magallanes. Renae-W-Briana from [...] 8:45 AM EDT): Gabapentin 600 mg at [facility] Assessment & Plan (05/07/2021 11:11 [...] as of this encounter (statuses as of 08/06/2024) Resolved Problems Problem Noted Date Diagnosed Date [...] Insulin long-term use 11/19/20182018 Overview (05/20/2019): Duplicate jail (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 insulin 11/19/2018 [...] T-tube placement 04/16/2017 05/29/2017 [employer] Other*[id number] 04/13/2013 08/27/2016 Overview (04/13/2013): Study Title: Genomic Markers for Patients with Cardiovascular Disease Project # [id number] Dewaterer Operator: Siena Laws MD [phone] Hypertensive heart disease 03/25/2013 1 07/29/2016 Neuropathy, [...] as of this encounter (statuses as of 08/06/2024) Immunizations Name Administration Dates Next Due COVID-19 mRNA, LNP-s, No Pre serve, 2-Dose Series (Moderna) 04/09/2021,09/23/2020,08/19/2020 COVID-19, LNP-s, No Preserve , Espinoza-sucrose, Ages 12+ (Pfizer) 01/08/2022 COVID-19, MRNA-LNP, PF, 30 M CG/0.3 mL, 12 YRS AND ABOVE, IM (PFIZER-Comirnaty) 06/02/2024 HEPATITIS B VACCINE, RECOMB, 20 MCG/ML, ADULT (HEPLISAV-B) 09/05/2021,05/09/2021,04/04/2021,02/18 Hepatitis B, 20+ yrs 09/16/2018,04/14/2018,03/1104/11/2018 Pneumococcal Conjugate Vacci ne, 20-valent ([id number]) 06/22/2024,12/02/2023(Deferred: - pt states she's already received) [...] Entry Date Author No 12/11/2022 6:51 PM CASAT Rabia Wiley RN documented in this encounter Miscellaneous Notes * Telephone Encounter - Vera Langston RPh - 08/06/2024 2:44 PM EST Filled out an faxed PWO for patient's jennifer 2 to be fulfilled by [facility] Medical. Received successful confirmation of fax. Fimsed into chart. Vera Langston, PharmD, BCACP Clinical Pharmacist Medication Therapy Disease Management 08/06/2024, 2:44 PM documented in this encounter Plan of Treatment Upcoming Encounters Date Type Department Care Team (Late st Contact Info) Description 08/10/2024 8:00 AM EST Office Visit Gastroenterology, [facility] [address] [address] Emi Queen CRNP [address] [place] [address] 08/10/2024 2:40 PM EST Office Visit Dermatology, [facility] [address] [place] [phone] Joanne Parks PA-C [address] [place] [address] [place] [address] 08/19/2024 10:00 AM EST Home Visit [facility], [facility] [address] [place] [address] Heidi Garcia, RN [address] [facility] [place] [address] 09/02/2024 10:00 AM EST Nurse Only Nutrition & Weight Management, [facility] [address] [place] [address] [facility], Nurse Gi Nutrition [facility] [address] [facility] [place] [address] 09/30/2024 11:00 AM EDT Office Visit Podiatry [facility] [address] [place] [phone] Calli Avila DPM [address] [facility] [place] [address] Scheduled Procedures Name Priority Associated Diagnoses Date/Ti [...] this encounter Medical Devices Implanted Type Area Assembler Surgical Garment Device Identifier Shelf Expiration Date Model / Serial / Lot Coil Vortex 35 Pltinm [id number] - [id number] Implanted:Qty: 1 on 11/27/2021 by Sterling Cates MD at [place] [facility] Right: Upper Arm [employer] : NEURO INTR [id number] 08/15/2024 [id number] / / [id number] Coil Vortex 35 Pltinm [id number] - [id number] Implanted:Qty: 1 on 11/27/2021 by Sterling Cates MD at OR [facility] Right: Upper Arm [employer] : NEURO INTR [id number] 08/15/2024 [id number] / / [id number] Coil Vortex 35 Pltinm [id number] - [id number] Implanted:Qty: 1 on 11/27/2021 by Sterling Cates MD at OR [facility] Right: Upper Arm [employer] : NEURO INTR [id number] 08/15/2024 [id number] / / [id number] Coil Vortex 35 Pltinm [id number] - [id number] Implanted:Qty: 1 on 11/27/2021 by Sterling Cates MD at OR [facility] Right: Upper Arm [employer] : NEURO INTR [id number] 05/16/2024 [id number] / / [id number] Azur 35 Detachable 5mm 11cm - [id number] Implanted:Qty: 1 on 03/19/2022 by Jose Devine MD at OR [facility] Right: Wrist [employer] [id number] 10/18/2025 [id number] / / [id number] Azur 35 Detachable 5mm 11cm - [id number] Implanted:Qty: 1 on 03/19/2022 by Jose Devine MD at OR [facility] Right: Wrist [employer] [id number] 06/19/2026 [id number] / / [id number] Mesh Flat Sheet 10x14 [id number] - [id number] Implanted:Qty: 1 on 12/11/2022 by Eros Dash MD at OR [facility] N/A: Abdomen CR BARD : DAVOL [id number] 06/17/2027 [id number] / / [id number] documented as of this encounter Advance Directives Documents on File Type Date Recorded Patient Neuropsychiatric Aide Expl anation POLST 11/13/2020 POLST PEN[place]YLVA VALERIA [...] Agents on File Name Relationship Healthcare Agent [facility] Communication Zhen Finley Spouse Health Care Agent Care Teams Senior Finance Manager Relationship Specialty Start Date End Date Luis Fernando Rojas MD PCP - General Family Medicine 09/23/16 documented as of this encounter
--- OUTSIDE RECORDS SUMMARY | 2024-10-05 05:34 | External Medical Summary | Summary of Care ---
Author Name Unknown Organization [facility] Address [address] [place] [address] Phone [phone] Care Team Providers Care Property Consultant Name Role Phone Luis Fernando Rojas MD Primary Care Provider [phone] Reason for Visit * Reason Onset Date Comments Precert In Process 07/27/2024 08 gabby hogan Auryxia (non formulary for 2024) Encounter Details Date Type Department Care Team (Late st Contact Info) Description 07/27/2024 Telephone NephrologyDella [address] [place] [address] Sameer Hassan MD [address] [place] [address] Precert In Process (08 gabby alvarez Auryxi... Allergies Active Allergy Reactions Criticality Noted Date Comments Salvador Inhibitors Other (Please comment),Cough High HyperKalemia documented as of this encounter (statuses as of 07/28/2024) Medications Melatonin 10 MG Tablet Take 12 [...] mouth in the morning. 03/23/20 24 Active VCNCTouch Verio In Vitro Strip (Glucose Blood) To test blood sugar 4 times daily. 400 Strip 1 4 6:47 AM EDT 04/20/20 24 Active OneTouch Delica Lancets 33G To test blood sugar 4 times daily. 400 Each 1 4 6:47 AM EDT 04/20/20 24 Active VCNCTouch Verio w/Device Kit Use as directed. 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 Magallanes. M-W-F from 1-5. Has dialysis catheter in the chest. Plan [...] diuretics gets volume taken off at [facility] Type 2 diabetes mellitus wit h diabetic [...] as of this encounter (statuses as of 07/28/2024) Resolved Problems Problem Noted Date Diagnosed Date [...] Insulin long-term use 11/19/20182018 Overview (05/20/2019): Duplicate extermination supervisor (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 insulin 11/19/2018 10/08/2022 [...] T-tube placement 04/16/2017 05/29/2017 [employer] Other*[id number] 04/13/2013 08/27/2016 Overview (04/13/2013): Study Title: Genomic Markers for Patients with Cardiovascular Disease Project # [id number] Relationship Mgr: Siena Laws MD [phone] Hypertensive heart disease 03/25/2013 1 07/29/2016 Neuropathy, [...] as of this encounter (statuses as of 07/28/2024) Immunizations Name Administration Dates Next Due COVID-19 mRNA, LNP-s, No Pre serve, 2-Dose Series (Moderna) 04/09/2021,09/23/2020,08/19/2020 COVID-19, LNP-s, No Preserve , Espinoza-sucrose, Ages 12+ (Pfizer) 01/08/2022 COVID-19, MRNA-LNP, PF, 30 M CG/0.3 mL, 12 YRS AND ABOVE, IM (PFIZER-Comirnaty) 06/02/2024 HEPATITIS B VACCINE, RECOMB, 20 MCG/ML, ADULT (HEPLISAV-B) 09/05/2021,05/09/2021,04/04/2021,02/18 Hepatitis B, 20+ yrs 09/16/2018,04/14/2018,03/1104/11/2018 Pneumococcal Conjugate Vacci ne, 20-valent (Fhfmkli13) 06/22/2024,12/02/2023(Deferred: - pt states she's already received) [...] No 08/14/2023 Does the household have a [facility] [place] [place] source of income? (Household - for ages [...] No 12/11/2022 6:51 PM Siena Granados RN documented as of this encounter [...] is a dialysis pt will send to [facility] * Telephone Encounter - Gabby Hills OSA - 07/28/2024 11:26 AM EST Do not see script. Please advise what is the medication strength, instructions qty and day supply requested? [place] reply back to p [phone] Thank you Gabby Hills Valve Inserter [facility] 07/28/2024,11:26 AM * Telephone Encounter - Adela Jiang CPhT - 07/27/2024 9:19 AM EST Pharmacy calling to inform doctor that the patient's medication has a high copay and is requesting an alternative. Did confirm this information with the pharmacy. Pt's current insurance information is as follows: Patient name: Candi Finley ID number: [id number] BIN number: [id number] PCN number: [id number] Group number: none Subscriber name: Candi Finley Primary or Secondary Insurance:Primary Medication: Auryxia (non formulary for 2024) Reason for Request: non formulary, would require a formulary exception prior auth for coverage Pharmacy and phone number: [facility] [phone] Rx plan and phone number: [facility] [phone] Is this a new medication for the patient? No. How did the patient obtain the medication on the lastfill? No longer formulary for 2024 What alternative medications does the pharmacy have in stock?: none Thank you, Adela Jiang CphT Quality Assurance Tech III [facility]) 07/27/24 documented in this encounter Plan of Treatment Upcoming Encounters Date Type Department Care Team (Late st Contact Info) Description 08/10/2024 8:00 AM EST Office Visit Gastroenterology, [facility] [address] [place] [address] Emi Queen CRNP [address] [address] 08/10/2024 2:40 PM EST [facility] [phone] Joanne Parks PA-C [address] [place] [address] [place] [address] 08/19/2024 10:00 AM EST Home Visit [facility] [address] [address] Heidi Garcia RN [address] [place] [address] 09/02/2024 10:00 AM EST Nurse Only Nutrition & Weight Management, [facility] [address] [place] [address] [facility], Nurse Gi Nutrition [facility] [address] [place] [address] 09/30/2024 11:00 AM EDT Office Visit Podiatry [facility] [address] [place] [phone] Calli Avila, DAIANA [address] [place] [address] Scheduled Procedures Name Priority Associated Diagnoses Date/Ti [...] this encounter Medical Devices Implanted Type Area Lamination Builder Device Identifier Shelf Expiration Date Model / Serial / Lot Coil Vortex 35 Pltinm [id number] - [id number] Implanted:Qty: 1 on 11/27/2021 by Sterling Cates MD [place] [facility] [place]: Upper Arm [employer] : NEURO INTR [id number] 08/15/2024 [id number] Coil Vortex 35 Pltinm [id number] - [id number] Implanted:Qty: 1 on 11/27/2021 by Sterling Cates MD [place] [facility] [place]: Upper Arm [employer] : NEURO INTR [id number] 08/15/2024 [id number] Coil Vortex 35 Pltinm [id number] - [id number] Implanted:Qty: 1 on 11/27/2021 by Sterling Cates MD at [place] [facility] [place]: Upper Arm [employer] : NEURO INTR [id number] 08/15/2024 [id number] Coil Vortex 35 Pltinm [id number] - [id number] Implanted:Qty: 1 on 11/27/2021 by Sterling Cates MD at [place] [facility] Right: Upper Arm [employer] : NEURO INTR [id number] 05/16/2024 [id number] / [id number] Azur 35 Detachable 5mm 11cm - [id number] Implanted:Qty: 1 on 03/19/2022 by Jose Devine MD at [place] [facility] Right: Wrist [employer] [id number] 10/18/2025 [id number] / / [id number] Azur 35 Detachable 5mm 11cm - [id number] Implanted:Qty: 1 on 03/19/2022 by Jose Devine MD at [place] [facility] Right: Wrist [employer] [id number] 06/19/2026 [id number] / / [id number] Mesh Flat Sheet 10x14 [id number] - [id number] Implanted:Qty: 1 on 12/11/2022 by Eros Dash MD at [place] [facility] N/A: Abdomen CR BARD : DAVOL [id number] 06/17/2027 [id number] / / [id number] documented as of this encounter Advance Directives Documents on File Type Date Recorded Patient Terminal System Operator Expl reagan HENRY 11/13/2020 POLST DOWNEY VALERIA ORDERS FOR [...] Spouse Health Care Agent Care Teams Property Consultant Relationship Specialty Start Date End Date Luis Fernando Rojas MD PCP - General Family Medicine 09/23/16 documented as of this encounter
--- OUTSIDE RECORDS SUMMARY | 2024-10-05 05:34 | External Medical Summary | Summary of Care ---
Author Name Unknown Organization [facility] Address [address] [place] [address] Phone [phone] Care Team Providers Care Hot Dimpling Machine Operator Name Role Phone Heber Rojas MD Primary Care Provider Reason for Visit * Reason Comments Medication Refill Encounter Details Date Type Department Care Team (Late st Contact Info) Description 08/05/2024 Refill [facility] [address] [place] [phone] Heber Rojas MD [address] [place] [address] Allergies Active Allergy Reactions Criticality Noted Date [...] 4 11:01 AM EST 03/20/20 24 Active NetScientificToSavvy Cellar Wines In Vitro Strip (Glucose Blood) To test blood sugar 4 times daily. 400 Strip 1 4 6:47 AM EDT 04/20/20 24 Active NetScientificTouch Delica Lancets 33G To test blood sugar 4 times daily. 400 Each 1 4 6:47 AM EDT 04/20/20 24 Active NetScientificToSavvy Cellar Wines w/Device Kit Use as directed. 1 Kit [...] in the morning. 90 Tablet 1 08/05/19 25 Active Gabapentin 300 MG Oral Capsule (Neurontin) Take 1 Capsule by mouth at bedtime. Follow up with your primary care provider for further management. 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 [id number] 10/17/2023 12/11/19 25 Active documented as of [...] 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 10/15/2022 [facility] OTHER*[id number] 01/01/2022 S/P gastric bypass 01/01/[address] [...] AM EDT): Gabapentin 600 mg at [facility] Assessment & Plan (05/07/2021 11:11 [...] T-tube placement 04/16/2017 05/29/2017 [employer] Other*[id number] 04/13/2013 08/27/2016 Overview (04/13/2013): Study Title: Genomic Markers for Patients with Cardiovascular Disease Project # [id number] Payroll Examiner: Siena Laws MD [phone] Hypertensive heart disease 03/25/2013 1 07/29/2016 Neuropathy, [...] yrs 09/16/2018,04/14/2018,03/1104/11/2018 Pneumococcal Conjugate Vacci ne, 20-valent ([id number]) 06/22/2024,12/02/2023(Deferred: - pt states she's already received) [...] Telephone Encounter - Heber Rojas MD - 08/06/2024 8:54 AM ESTSigned Prescriptions: Disp Refills Gabapentin 300 MG Oral Capsule (Neurontin) 90 Cap*3 Sig: Take 1 Capsule by mouth at bedtime. Follow up with your primary care provider for further management. Authorizing Provider: HEBER ROJAS amLODIPine Besylate 5 MG Oral Tablet (Norv*90 Tab*1 Sig: TAKE ONE TABLET BY MOUTH EVERY DAY IN THE MORNING Authorizing Provide r: HEBER ROJAS Ordering User: ROSY VALENCIA * Telephone Encounter - Rosy Valencia [facility] - 08/05/2024 2:50 PM EST Pending Prescriptions: Disp Refills Gabapentin 300 MG Oral Capsule (Neurontin) 90 Cap*3 Sig: Take 1 Capsule by mouth at bedtime. Follow up with your primary care provider for further management. Signed Prescriptions: Disp Refills amLODIPine Besylate 5 MG Oral Tablet (Norv*90 Tab*1 Sig: TAKE ONE TABLET BY MOUTH EVERY DAY IN THE MOR FOSTER Authorizing Provider: HEBER ROJAS Ordering User: ROSY AVLENCIA * Telephone Encounter - Rosy Valencia [facility] - 08/05/2024 2:50 PM EST Telepharmacy is currently not authorized to approve refills for this class of medication per refillprotocol. Thank you, Rosy Valencia, PharmD Staff Pharmacist Refill Call Center [phone] 08/05/2024, 2:50 PM Pending Prescriptions: Disp Refills Gabapentin 300 MG Oral Capsule (Neurontin) 90 Cap*3 Sig: Take 1 Capsule by mouth at bedtime. Follow up with your primary care provider for further management. Signed Prescriptions: Disp Refills amLODIPine Besylate 5 MG Oral Tablet (Norv*90 Tab*1 Sig: TAKE ONE TABLET BY MOUTH EVERY DAY IN THE MORNING Authorizing Provider: HEBER ROJAS Ordering User: ROSY VALENCIA Last Visit: 06/22/2024 (in office), Visit date not found (telemedicine) Next Visit: Visit date not found If no future appointments scheduled, and last appointment is greater than a year ago, please schedule patient for a follow-up appointment Last date the medication was ordered: 09/10/23 Pharmacy: [facility] Is this request for a controlled substance?No [...] 08:48 AM TSH 1.58 04/26/2020 09:25 AM LDL 16 07/01/2022 09:10 AM LDL 23 03/17/2020 09:21 AM ALT 57 (H) 11/28/2022 12:30 PM ALT 57 (H) 03/17/2020 09:21 AM HGBA1C 7.8 (H) 12/12/2022 07:18 AM HGBA1C 7.6 (H) 04/26/2020 09:24 AM documented in this encounter Plan of Treatment Upcoming Encounters Date Type Department Care Team (Late st Contact Info) Description 08/10/2024 8:00 AM EST Office Visit Gastroenterology, [facility] [address] [address] Emi Queen CRNP [address] [address] 08/10/2024 2:40 PM EST Office Visit [facility] [place] [address] [place] [phone] Joanne Parks PA-C [address] [place] [address] [place] [address] 08/19/2024 10:00 AM EST [facility], [facility] [place] [address] Heidi Garcia, RN 132 [facility] [place] [address] 09/02/2024 10:00 AM EST Nurse Only Nutrition & Weight Management, [facility] 132 [facility] [place] [address] [facility], Nurse Gi Nutrition [facility] [address] [facility] [place] [address] 09/30/2024 11:00 AM EDT Office Visit Podiatry [facility] [address] [place] [phone] Calli Avila DPM [address] [place] [address] Scheduled Procedures Name Priority Associated Diagnoses Date/Ti [...] this encounter Medical Devices Implanted Type Area Pharmacist'S Aide Device Identifier Shelf Expiration Date Model / Serial / Lot Coil Vortex 35 Pltinm [id number] - [id number] Implanted:Qty: 1 on 11/27/2021 by Sterling Cates [place] [facility] [place] Upper Arm [employer] : NEURO INTR [id number] 08/15/2024 [id number] Coil Vortex 35 Pltinm [id number] - [id number] Implanted:Qty: 1 on 11/27/2021 by Sterling Cates MD [place] [facility] [place]: Upper Arm [employer] : NEURO INTR [id number] 08/15/2024 [id number] Coil Vortex 35 Pltinm [id number] - [id number] Implanted:Qty: 1 on 11/27/2021 by Sterling Cates MD [place] [facility] [place]: Upper Arm [employer] : NEURO INTR [id number] 08/15/2024 [id number] / / [id number] Coil Vortex 35 Pltinm [id number] - [id number] Implanted:Qty: 1 on 11/27/2021 by Sterling Cates MD [place] [facility] [place]: Upper Arm [employer] : NEURO INTR [id number] 05/16/2024 [id number] / / [id number] Azur 35 Detachable 5mm 11cm - [id number] Implanted:Qty: 1 on 03/19/2022 by Jose Devine MD [place] [facility] [place]: Wrist [employer] [id number] 10/18/2025 [id number] / / [id number] Azur 35 Detachable 5mm 11cm - [id number] Implanted:Qty: 1 on 03/19/2022 by Jose Devine MD [place] [facility] [place]: Wrist [employer] [id number] 06/19/2026 [id number] / / [id number] Mesh Flat Sheet 10x14 [id number] - [id number] Implanted:Qty: 1 on 12/11/2022 by Eros Dash MD [place] [facility] N/A: Abdomen CR BARD : DAVOL [id number] 06/17/2027 [id number] / / [id number] documented as of this encounter Advance Directives Documents on File Type Date Recorded Patient Airplane Patrol Pilot Expl anation POLST 11/13/2020 POLST PENNSYLVA VALERIA [...] Agents on File Name Relationship Healthcare Agent Relationswv p Communication Zhen Finley Spouse Health Care Agent Care Teams Hot Dimpling Machine Operator Relationship Specialty Start Date End Date Heber Rojas MD PCP - General Family Medicine 09/23/16 documented as of this encounter
--- OUTSIDE RECORDS SUMMARY | 2024-10-05 05:35 | External Medical Summary | Summary of Care ---
Author Name Unknown Organization [facility] Address [address] [place] [address] Phone [phone] Care Team Providers Care [employer] Name Role Phone Luis Fernando Rojas MD Primary Care Provider [phone] Reason for Visit * Reason Onset Date Comments [facility]: Maintenance 07/19/2024 Encounter Details Date Type Department Care Team (Late st Contact Info) Description 07/19/2024 9:00 AM EST Scheduled Telephone [facility], [facility] [address] [place] [address] [facility], Nurse [facility] [address] [place] [address] Allergies Active Allergy Reactions Criticality Noted Date Comments Salvador Inhibitors Other (Please comment),Cough High HyperKalemia documented as of this encounter (statuses as of 07/19/2024) Medications Melatonin 10 MG Tablet Take 12 [...] goal of less than 7.0% ([facility]) Inject 14 units with breakfast, 4 [...] mouth in the morning. 03/23/20 24 Active Silith.IOToOneCubicle Verio In Vitro Strip (Glucose Blood) To test blood sugar 4 times daily. 400 Strip 1 4 6:47 AM EDT 04/20/20 24 Active OneTouch Delica Lancets 33G To test blood sugar 4 times daily. 400 Each 1 4 6:47 AM EDT 04/20/20 24 Active Silith.IOTouch Verio w/Device Kit Use as directed. 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 10/15/2022 [facility] OTHER*[id number] 01/01/2022 S/P gastric bypass 01/01/[address] [...] up the stairs") Chronic Medication Regimen: Beta Nogc Therapy: Carvedilol SALVADOR Inhibitor/ARB Therapy: Other: none [...] 8:45 AM EDT): Gabapentin 600 mg at [facility] Assessment & Plan (05/07/2021 11:11 AM EDT): [...] as of this encounter (statuses as of 07/19/2024) Resolved Problems Problem Noted Date Diagnosed Date [...] Insulin long-term use 11/19/20182018 Overview (05/20/2019): Duplicate FCI (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 insulin 11/19/2018 10/08/2022 Morbid [...] T-tube placement 04/16/2017 05/29/2017 [employer] Other*[id number] 04/13/2013 08/27/2016 Overview (04/13/2013): Study Title: Genomic Markers for Patients with Cardiovascular Disease Project # [id number] Pulverizer Mill Operator: Siena Laws MD [phone] Hypertensive heart disease 03/25/2013 1 07/29/2016 Neuropathy, [...] as of this encounter (statuses as of 07/19/2024) Immunizations Name Administration Dates Next Due COVID-19 mRNA, LNP-s, No Pre serve, 2-Dose Series (Moderna) 04/09/2021,09/23/2020,08/19/2020 COVID-19, LNP-s, No Preserve , Espinoza-sucrose, Ages 12+ (Pfizer) 01/08/2022 COVID-19, MRNA-LNP, PF, 30 M CG/0.3 mL, 12 YRS AND ABOVE, IM (PFIZER-Comirnaty) 06/02/2024 HEPATITIS B VACCINE, RECOMB, 20 MCG/ML, ADULT (HEPLISAV-B) 09/05/2021,05/09/2021,04/04/2021,02/18 Hepatitis B, 20+ yrs 09/16/2018,04/14/2018,03/1104/11/2018 Pneumococcal Conjugate Vacci ne, 20-valent (Tdkivnh10) 06/22/2024,12/02/2023(Deferred: - pt states she's already received) [...] Miscellaneous Notes * Telephone Encounter - Ronda Baxter RN - 07/19/2024 12:55 PM EST [facility] Telephonic Nurse Follow-Up Call [facility] Subprogram: Short-Term Management (less than 3 months) Follow Up Call Type: Routine follow up call / Status Check Acute issue requiring follow-up call: Other: URI Objective: 07/15/2024 10:27 AM 07/07/2024 9:52 AM 06/22/2024 7:31 AM 06/02/2024 9:38 AM 06/01/2024 6:00 PM VITALS ACROSS ENCOUNTERS BP 124/24 130/64 132/70 110/74 104/85 Pulse 80 87 94 88 61 Weight 104.7 kg 105.4 kg BMI 41.16 BMI 40.9 kg/m2 41.15 kg/m2 Remote Patient Monitoring: NONE Oxygen Needs: NO supplemental oxygen needs identified DME Needs: NO DME needs identified Medications: No medication or dose adjustments made during acute episode Subjective: Condition Status: Improvement in symptoms but not at baseline Current Concerns: Patient reports that she is feeling much better. Taking the tessalon perles for cough which continues. Denies fever/chills, or sob. Reinforced to continue supportive care for symptom management and to call back if symptoms worsen, fever, chills, sob. Pt verbalizes understanding and able to repeat back instruction correctly. Disposition: Issue resolved. All appropriate follow up scheduled. Future Visits Scheduled: Future Appointments-next 60 days Date/Time Provider Specialty Dept Phone 08/10/2024 8:00 AM (Arrive by 7:45 AM) Emi Queen CRNP Gastroenterology [phone] 08/10/2024 2:40 PM (Arrive by 2:25 PM) Joanne Parks PA-C Dermatology [phone] 08/19/2024 10:00 AM Heidi Garcia RN [facility] [phone] 09/02/2024 10:00 AM (Arrive by 9:45 AM) Nurse Brianna Plata [facility] Gastroenterology [phone] 09/30/2024 11:00 AM (Arrive by 10:45 AM) Calli Avila DPM Podiatry [phone] Ronda Baxter, RN documented in this encounter Plan of Treatment Upcoming Encounters Date Type Department Care Team (Late st Contact Info) Description 08/10/2024 8:00 AM EST Office Visit Gastroenterology, [facility] 132 [facility] [place] [address] Emi Queen CRNP 132 [facility] [place] [address] 08/10/2024 2:40 PM EST Office Visit [facility] [place] [address] [phone] Joanne Parks PA-C [address] [place] [address] [place] [address] 08/19/2024 10:00 AM EST Home Visit [facility], [facility] [place] [address] Heidi Garcia, RN [address] [place] [address] 09/02/2024 10:00 AM EST Nurse Only Nutrition & Weight Management, [facility] 132 [facility] [place] [address] [facility], Nurse Gi Nutrition [facility] 132 [facility] [place] [address] 09/30/2024 11:00 AM EDT Office Visit Podiatry [facility] 132 [facility] [place] [address] Calli Avila DPM 132 [facility] [place] [address] Scheduled Procedures Name Priority Associated Diagnoses Date/Ti [...] this encounter Medical Devices Implanted Type Area [place] Device Identifier Shelf Expiration Date Model / Serial / Lot Coil Vortex 35 Pltinm [id number] - [id number] Implanted:Qty: 1 on 11/27/2021 [place] C[place] [facility] [place] Upper Arm [employer] : NEURO INTR [id number] 08/15/2024 [id number] Coil Vortex 35 Pltinm [id number] - [id number] Implanted:Qty: 1 on 11/27/2021 by Sterling Cates [place] [facility] [place]: Upper Arm [employer] : NEURO INTR [id number] 08/15/2024 [id number] Coil Vortex 35 Pltinm [id number] - [id number] Implanted:Qty: 1 on 11/27/2021 by Sterling Cates [place] [facility] [place]: Upper Arm [employer] : NEURO INTR [id number] 08/15/2024 [id number] / / [id number] Coil Vortex 35 Pltinm [id number] - [id number] Implanted:Qty: 1 on 11/27/2021 by Sterling Cates [place] [facility] [place]: Upper Arm [employer] : NEURO INTR [id number] 05/16/2024 [id number] / / [id number] Azur 35 Detachable 5mm 11cm - [id number] Implanted:Qty: 1 on 03/19/2022 by Jose Devine [place] [facility] [place]: Wrist [employer] [id number] 10/18/2025 [id number] / / [id number] Azur 35 Detachable 5mm 11cm - [id number] Implanted:Qty: 1 on 03/19/2022 by Jose Devine [place] [facility] [place]: Wrist [employer] [id number] 06/19/2026 [id number] / / [id number] Mesh Flat Sheet 10x14 [id number] - [id number] Implanted:Qty: 1 on 12/11/2022 by Eros Dash MD [place] [facility] [place] N/A: Abdomen CR BARD : DAVOL [id number] 06/17/2027 [id number] / / [id number] documented as of this encounter Advance Directives Documents on File Type Date Recorded Patient Diamond Polisher Expl anation POLST 11/13/2020 POLST PENNSYLVA VALERIA [...] Finley Spouse Health Care Agent Care Teams [employer] Relationship Specialty Start Date End Date Luis Fernando Rojas MD PCP - General Family Medicine 09/23/16 documented as of this encounter
--- OUTSIDE RECORDS SUMMARY | 2024-10-05 05:35 | External Medical Summary | Summary of Care ---
Author Name Unknown Organization [facility] Address [address] [place] [address] Phone [phone] Care Team Providers Care Flying Teacher Name Role Phone Luis Fernando Rojas MD Primary Care Provider [phone] Reason for Visit * Reason Onset Date Comments [facility]: Maintenance 07/16/2024 Encounter Details Date Type Department Care Team (Late st Contact Info) Description 07/16/2024 1:15 PM EST Scheduled Telephone [facility], [facility] [address] [place] [address] [facility], Nurse [facility] [address] [place] [address] Allergies Active Allergy Reactions Criticality Noted Date Comments Salvador Inhibitors Other (Please comment),Cough High HyperKalemia documented as of this encounter (statuses as of 07/16/2024) Medications Melatonin 10 MG Tablet Take 12 [...] than 7.0% ([facility]) Inject 14 units with [...] mouth in the morning. 03/23/20 24 Active BrickTrendsToQuri Verio In Vitro Strip (Glucose Blood) To test blood sugar 4 times daily. 400 Strip 1 4 6:47 AM EDT 04/20/20 24 Active OneTouch Delica Lancets 33G To test blood sugar 4 times daily. 400 Each 1 4 6:47 AM EDT 04/20/20 24 Active BrickTrendsTouch Verio w/Device Kit Use as directed. 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 10/15/2022 MOR[facility] RESEARCH OTHER*[id number] 01/01/2022 S/P gastric bypass 01/01/[address] [...] 8:45 AM EDT): Gabapentin 600 mg at [facility] Assessment & Plan (05/07/2021 11:11 AM [...] as of this encounter (statuses as of 07/16/2024) Resolved Problems Problem Noted Date Diagnosed Date [...] T-tube placement 04/16/2017 05/29/2017 [employer] Other*[id number] 04/13/2013 08/27/2016 Overview (04/13/2013): Study Title: Genomic Markers for Patients with Cardiovascular Disease Project # [id number] Loom Repairer: Siena Laws MD [phone] Hypertensive heart disease 03/25/2013 1 07/29/2016 Neuropathy, [...] as of this encounter (statuses as of 07/16/2024) Immunizations Name Administration Dates Next Due COVID-19 mRNA, LNP-s, No Pre serve, 2-Dose Series (Moderna) 04/09/2021,09/23/2020,08/19/2020 COVID-19, LNP-s, No Preserve , Espinoza-sucrose, Ages 12+ (Pfizer) 01/08/2022 COVID-19, MRNA-LNP, PF, 30 M CG/0.3 mL, 12 YRS AND ABOVE, IM (PFIZER-Comirnaty) 06/02/2024 HEPATITIS B VACCINE, RECOMB, 20 MCG/ML, ADULT (HEPLISAV-B) 09/05/2021,05/09/2021,04/04/2021,02/18 Hepatitis B, 20+ yrs 09/16/2018,04/14/2018,03/1104/11/2018 Pneumococcal Conjugate Vacci ne, 20-valent ([id number]) 06/22/2024,12/02/2023(Deferred: - pt states she's already received) [...] 6:51 PM CASAT Rabia Wiley RN * Do you have [...] encounter Miscellaneous Notes * Telephone Encounter - Marco Antonio Kirkland MD - 07/16/2024 9:05 AM EST Noted. No PNA of c/f CHF exacerbation per CXR. E * Telephone Encounter - Sofia Gipson RN - 07/16/2024 8:54 AM EST Images from the original note were not included. [facility] at Home Telephonic Nurse Follow-Up Call [facility] Subprogram: Short-Term Management (less than 3 months) Follow Up Call Type: 24 hour follow up Acute issue requiring follow-up call: Other: Post HV, CXR Results Still with cough, yellow mucus, decreased energy. Objective: 07/15/2024 10:27 AM 07/07/2024 9:52 AM 06/22/2024 7:31 AM 06/02/2024 9:38 AM 06/01/2024 6:00 PM VITALS ACROSS ENCOUNTERS BP 124/24 130/64 132/70 110/74 104/85 Pulse 80 87 94 88 61 Weight 104.7 kg 105.4 kg BMI 41.16 BMI 40.9 kg/m2 41.15 kg/m2 Remote Patient Monitoring: NONE Oxygen Needs: NO supplemental oxygen needs identified DME Needs: Nebulizer machine and supplies, CPAP Medications: New medication(s) added: Promethazine/Codeine cough syrup,Tessalon Perles, Subjective: Condition Status: No change in symptoms Current Concerns: UTC, left message on identified voicemail, requesting callback to [facility] with updateon symptoms, did she start taking medication ordered yesterday, any benefit/improvement from them ? Requested callback to [facility], [phone] # option #1 provided Disposition: Routed to [facility] and/or [facility] Care Team for further advice Future Visits Scheduled: Future Appointments-next 60 days Date/Time Provider Specialty Dept Phone 07/16/2024 12:40 PM (Arrive by 12:25 PM) Meena Hassan MD Internal Medicine [phone] 07/16/2024 1:15 PM [facility], Nurse [facility] at Home [phone] 07/17/2024 11:30 AM [facility], Nurse [facility] at Home [phone] 08/10/2024 8:00 AM (Arrive by 7:45 AM) Emi Queen CRNP Gastroenterology [phone] 08/10/2024 2:40 PM (Arrive by 2:25 PM) Joanne Parks PA-C Dermatology [phone] 08/19/2024 10:00 AM Heidi Garcia RN [facility] [phone] 09/02/2024 10:00 AM (Arrive by 9:45 AM) Nurse Brianna Plata Nutrition [facility] Gastroenterology [phone] 09/30/2024 11:00 AM (Arrive by 10:45 AM) Calli Avila DPM Podiatry [phone] Sofia Gipson, RN documented in this encounter Plan of Treatment Upcoming Encounters Date Type Department Care Team (Late st Contact Info) Description 07/16/2024 12:40 PM EST Office Visit General Internal Medicine [facility] [address] [place], [place] [address] Meena Hassan MD [address] [facility] [place] [address] 07/17/2024 11:30 AM EST Scheduled Telephone [facility], [facility] 132 [facility] [place] [address] [facility], Nurse [facility] [address] [place] [address] 08/10/2024 8:00 AM EST Office Visit Gastroenterology, [facility] [address] [place] [address] Emi Queen CRNP 132 [facility] [place] [address] 08/10/2024 2:40 PM EST [facility] [address] [place] [phone] Joanne Parks, PA-C [address] [place] [address] [place] [address] 08/19/2024 10:00 AM EST Home Visit [facility], [facility] [address] [place] [address] Heidi Garcia, RN 132 [facility] [place] [address] 09/02/2024 10:00 AM EST Nurse Only Nutrition & Weight Management, [facility] [address] [place] [address] [facility] Nurse Gi Nutrition [facility] [address] [place] [address] 09/30/2024 11:00 AM EDT Office Visit Podiatry [facility] [address] [place] [address] Calli Avila, DPM [address] [place] [address] Scheduled Procedures Name Priority Associated Diagnoses Date/Ti [...] this encounter Medical Devices Implanted Type Area Sweatband Shaper Device Identifier Shelf Expiration Date Model / Serial / Lot Coil Vortex 35 Pltinm [id number] - [id number] Implanted:Qty: 1 on 11/27/2021 by Sterling Cates MD at OR [facility] Right: Upper Arm [employer] : NEURO INTR [id number] 08/15/2024 [id number] / / [id number] Coil Vortex 35 Pltinm [id number] - [id number] Implanted:Qty: 1 on 11/27/2021 by Sterling Cates MD at OR [facility] Right: Upper Arm [employer] : NEURO INTR [id number] 08/15/2024 [id number] / / [id number] Coil Vortex 35 Pltinm [id number] - [id number] Implanted:Qty: 1 on 11/27/2021 by Sterling Cates MD at OR [facility] Right: Upper Arm [employer] : NEURO INTR [id number] 08/15/2024 [id number] / / [id number] Coil Vortex 35 Pltinm 533591 - [id number] Implanted:Qty: 1 on 11/27/2021 by Sterling Cates MD at OR [facility] Right: Upper Arm [employer] : NEURO INTR [id number] 05/16/2024 [id number] / / [id number] Azur 35 Detachable 5mm 11cm - [id number] Implanted:Qty: 1 on 03/19/2022 by Jose Devine MD at OR [facility] Right: Wrist [employer] MED[employer]AT [id number] 10/18/2025 [id number] / / [id number] Azur 35 Detachable 5mm 11cm - [id number] Implanted:Qty: 1 on 03/19/2022 by Jose Devine MD at OR [facility] Right: Wrist [employer] [id number] 06/19/2026 [id number] / / [id number] Mesh Flat Sheet 10x14 [id number] - [id number] Implanted:Qty: 1 on 12/11/2022 by Eros Dash MD at OR [facility] N/A: Abdomen CR BARD : DAVOL [id number] 06/17/2027 [id number] / / [id number] documented as of this encounter Advance Directives Documents on File Type Date Recorded Patient Area Director Expl anation POLST 11/13/2020 POLST PENNSYLVA VALERIA [...] Agents on File Name Relationship Healthcare Agent [facility] p Communication Zhen Malia Spouse Health Care Agent Care Teams Flying Teacher Relationship Specialty Start Date End Date Luis Fernando Rojas MD PCP - General Family Medicine 09/23/16 documented as of this encounter
--- OUTSIDE RECORDS SUMMARY | 2024-10-05 05:35 | External Medical Summary | Summary of Care ---
Author Name Unknown Organization [facility] Address [address] [place] [address] Phone [phone] Care Team Providers Care Stem Roller Name Role Phone Luis Fernando Rojas MD Primary Care Provider [phone] Reason for Visit * Reason Onset Date Comments [facility]: Maintenance 07/16/2024 Encounter Details Date Type Department Care Team (Late st Contact Info) Description 07/16/2024 1:15 PM EST Scheduled Telephone [facility], [facility] [address] [place] [address] [facility] [address] [place] [address] Allergies Active Allergy Reactions Criticality Noted Date [...] ([facility]) Inject 14 units with breakfast, [...] mouth in the morning. 03/23/20 24 Active STORYS.JPToPhlexglobal Verio In Vitro Strip (Glucose Blood) To test blood sugar 4 times daily. 400 Strip 1 4 6:47 AM EDT 04/20/20 24 Active OneTouch Delica Lancets 33G To test blood sugar 4 times daily. 400 Each 1 4 6:47 AM EDT 04/20/20 24 Active STORYS.JPTouch Verio w/Device Kit Use as directed. 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 10/15/2022 MOR[facility] RESEARCH OTHER*[id number] 01/01/2022 S/P gastric bypass 01/01/[address] [...] 8:45 AM EDT): Gabapentin 600 mg at [facility] Assessment & Plan (05/07/2021 11:11 AM EDT): [...] Insulin long-term use 11/19/20182018 Overview (05/20/2019): Duplicate retirement (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 insulin 11/19/2018 [...] T-tube placement 04/16/2017 05/29/2017 [employer] Other*[id number] 04/13/2013 08/27/2016 Overview (04/13/2013): Study Title: Genomic Markers for Patients with Cardiovascular Disease Project # [id number] Cellophane Wrapping Examiner: Siena Laws MD [phone] Hypertensive heart disease 03/25/2013 1 07/29/2016 Neuropathy, [...] yrs 09/16/2018,04/14/2018,03/1104/11/2018 Pneumococcal Conjugate Vacci ne, 20-valent (Lftnwme21) 06/22/2024,12/02/2023(Deferred: - pt states she's already received) [...] Assessment Author No 12/11/2022 6:51 PM EDT Rabai Wiley RN * Because of a physical, [...] from the original note were not included. [facility] at Home Telephonic Nurse Follow-Up Call [facility] Subprogram: Short-Term Management (less than 3 months) [...] message on identified voicemail, requesting callback to [facility] with updateon symptoms, did she start taking medication ordered yesterday, any benefit/improvement from them ? Requested callback to [facility], [phone] # option #1 provided Disposition: Routed to [facility] and/or [facility] at [facility] Care Team for further advice Future Visits Scheduled: Future Appointments-next 60 days Date/Time Provider Specialty Dept Phone 07/16/2024 12:40 PM (Arrive by 12:25 PM) Meena Hassan MD Internal Medicine [phone] 07/16/2024 1:[address] [facility], Nurse [facility] at Home [phone] 07/17/2024 11:[address] [facility], Nurse [facility] at Home [phone] 08/10/2024 8:00 AM (Arrive by 7:45 AM) Emi Queen CRNP Gastroenterology [phone] 08/10/2024 2:40 PM (Arrive by 2:25 PM) Joanne Parks PA-C Dermatology [phone] 08/19/2024 10:00 AM Heidi Garcia RN [facility] [phone] 09/02/2024 10:00 AM (Arrive by 9:45 AM) Nurse Brianna Plata Nutrition [facility] Gastroenterology [phone] 09/30/2024 11:00 AM (Arrive by 10:45 AM) Calli Avila DPM Podiatry [phone] Sofia Gipson, RN documented in this encounter Plan of Treatment Upcoming Encounters Date Type Department Care Team (Late st Contact Info) Description 07/16/2024 12:40 PM EST Office Visit General Internal Medicine [facility] [address] [place], [place] [address] Meena Hassan MD 200 [facility] [place] [address] 07/17/2024 11:30 AM EST Scheduled Telephone [facility], [facility] 132 [facility] [place] [address] [facility], [facility] 132 [facility] [place] [address] 08/10/2024 8:00 AM EST Office Visit Gastroenterology, [facility] [address] [facility] [place] [address] Emi Queen CRNP 132 [facility] [place] [address] 08/10/2024 2:40 PM EST [facility] [address] [facility] [phone] Joanne Parks, PA-C [address] [place] [address] [place] [address] 08/19/2024 10:00 AM EST Home Visit [facility], [facility] [address] [facility] [place] [address] Heidi Garcia, RN 132 [facility] [place] [address] 09/02/2024 10:00 AM EST Nurse Only Nutrition & Weight Management, [facility] [address] [facility] [place] [address] [facility] Nurse Gi Nutrition [facility] [address] [facility] [place] [address] 09/30/2024 11:00 AM EDT Office Visit Podiatry [facility] [address] [place] [address] Calli Avila, DPM [address] [place] [address] Scheduled Procedures Name Priority Associated Diagnoses Date/Ti [...] this encounter Medical Devices Implanted Type Area Journal Entry Audit Clerk Device Identifier Shelf Expiration Date Model / Serial / Lot Coil Vortex 35 Pltinm [id number] - [id number] Implanted:Qty: 1 on 11/27/2021 by Sterling Cates MD at OR [facility] Right: Upper Arm [employer] : NEURO INTR [id number] 08/15/2024 [id number] / / [id number] Coil Vortex 35 Pltinm 192757 - [id number] Implanted:Qty: 1 on 11/27/2021 by Sterling Cates MD at OR [facility] Right: Upper Arm [employer] : NEURO INTR [id number] 08/15/2024 [id number] / / [id number] Coil Vortex 35 Pltinm 092752 - [id number] Implanted:Qty: 1 on 11/27/2021 by Sterling Cates MD at OR [facility] Right: Upper Arm [employer] : NEURO INTR [id number] 08/15/2024 [id number] / / [id number] Coil Vortex 35 Pltinm [id number] - [id number] Implanted:Qty: 1 on 11/27/2021 by Sterling Cates MD at OR [facility] Right: Upper Arm [employer] : NEURO INTR [id number] 05/16/2024 [id number] / / [id number] Azur 35 Detachable 5mm 11cm - [id number] Implanted:Qty: 1 on 03/19/2022 by Jose Devine MD at OR [facility] Right: Wrist [employer] [id number] 10/18/2025 [id number] / / [id number] Azur 35 Detachable 5mm 11cm - [id number] Implanted:Qty: 1 on 03/19/2022 by Jose Devine MD at OR [facility] Right: Wrist [employer] [id number] 06/19/2026 [id number] / / [id number] Mesh Flat Sheet 10x14 [id number] - [id number] Implanted:Qty: 1 on 12/11/2022 by Eros Dash MD at OR [facility] N/A: Abdomen CR BARD : DAVOL [id number] 06/17/2027 [id number] / / [id number] documented as of this encounter Advance Directives Documents on File Type Date Recorded Patient Boxcar Weigher Expl anation POLST 11/13/2020 POLST PENNSYLVA VALERIA [...] Agent [facility] p Communication Zhen Malia Spouse Health Care Agent Care Teams Stem Roller Relationship Specialty Start Date End Date Luis Fernando Rojas MD PCP - General Family Medicine 09/23/16 documented as of this encounter
--- OUTSIDE RECORDS SUMMARY | 2024-10-05 05:35 | External Medical Summary | Summary of Care ---
Author Name Unknown Organization [facility] Address [address] [place] [address] Phone [phone] Care Team Providers Care Certified Nurse Aide Name Role Phone Luis Fernando Rojas MD Primary Care Provider [phone] Reason for Visit * Reason Onset Date Comments [facility]: Maintenance 07/17/2024 Encounter Details Date Type Department Care Team (Late st Contact Info) Description 07/17/2024 11:30 AM EST Scheduled Telephone [facility], [facility] [address] [place] [address] [facility], [facility] [address] [place] [address] Allergies Active Allergy Reactions Criticality Noted Date Comments Salvador Inhibitors Other (Please comment),Cough High HyperKalemia documented as of this encounter (statuses as of 07/17/2024) Medications Melatonin 10 MG Tablet Take 12 [...] of less than 7.0% ([facility]) Inject 14 units with breakfast, 4 [...] mouth in the morning. 03/23/20 24 Active [employer] I/O Verio In Vitro Strip (Glucose Blood) To test blood sugar 4 times daily. 400 Strip 1 4 6:47 AM EDT 04/20/20 24 Active OneTouch Delica Lancets 33G To test blood sugar 4 times daily. 400 Each 1 4 6:47 AM EDT 04/20/20 24 Active ScoutTouch Verio w/Device Kit Use as directed. 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 Assessment & Plan (05/07/2021 11:11 AM [...] as of this encounter (statuses as of 07/17/2024) Resolved Problems Problem Noted Date Diagnosed Date [...] T-tube placement 04/16/2017 05/29/2017 [employer] Other*[id number] 04/13/2013 08/27/2016 Overview (04/13/2013): Study Title: Genomic Markers for Patients with Cardiovascular Disease Project # [id number] Genetic Counselor: Siena Laws MD [phone] Hypertensive heart disease 03/25/2013 1 07/29/2016 Neuropathy, [...] as of this encounter (statuses as of 07/17/2024) Immunizations Name Administration Dates Next Due COVID-19 mRNA, LNP-s, No Pre serve, 2-Dose Series (Moderna) 04/09/2021,09/23/2020,08/19/2020 COVID-19, LNP-s, No Preserve , Espinoza-sucrose, Ages 12+ (Pfizer) 01/08/2022 COVID-19, MRNA-LNP, PF, 30 M CG/0.3 mL, 12 YRS AND ABOVE, IM (PFIZER-Comirnaty) 06/02/2024 HEPATITIS B VACCINE, RECOMB, 20 MCG/ML, ADULT (HEPLISAV-B) 09/05/2021,05/09/2021,04/04/2021,02/18 Hepatitis B, 20+ yrs 09/16/2018,04/14/2018,03/1104/11/2018 Pneumococcal Conjugate Vacci ne, 20-valent ([id number]) 06/22/2024,12/02/2023(Deferred: - pt states she's already received) [...] encounter Miscellaneous Notes * Telephone Encounter - Vilma Liu RN - 07/17/2024 11:00 AM EST Phone call to patient to make her aware, will use Zeus De Los Santos. CODI Cruz Registered Nurse Navigator Triage [facility] * Telephone Encounter - Dejan Fajardo DO - 07/17/2024 10:47 AM EST Codeine should not be used in dialysis patients. Please notify the patient. * Telephone Encounter - Vilma Liu RN - 07/17/2024 10:04 AM EST [facility] Telephonic Nurse Follow-Up Call [facility] Subprogram: Short-Term Management (less than 3 months) Follow Up Call Type: Weekend Call Acute issue requiring follow-up call: Other: 48 hr f/u URI symptoms, cxr ordered Objective: 07/15/2024 10:27 AM 07/07/2024 9:52 AM 06/22/2024 7:31 AM 06/02/2024 9:38 AM 06/01/2024 6:00 PM VITALS ACROSS ENCOUNTERS BP 124/24 130/64 132/70 110/74 104/85 Pulse 80 87 94 88 61 Weight 104.7 kg 105.4 kg BMI 41.16 BMI 40.9 kg/m2 41.15 kg/m2 Remote Patient Monitoring: NONE Oxygen Needs: NO supplemental oxygen needs identified DME Needs: Nebulizer machine and supplies Medications: New medication(s) added: Promethazine/Codeine cough syrup,Tessalon Perles Subjective: Condition Status: Improvement in symptoms but not at baseline Current Concerns: Spoke with Candi, reports her breathing is improved, still has cough with yellow phlegm, no fever/chills, no sore throat, no N/V but has diarrhea, BRAT diet encouraged, no headache, no pain/body aches, no vertigo, coughing causing sternal pain, encouraged to take tylenol prn, is urinating, slept poor last night. Was unable to picking machine operator helper Promethazine-codeine cough syrup as [facility] pharmacy does not carry it. Wouldlike to have it sent to [facility] in [place]. Requested follow up call on Friday, will call in with any change in condition Disposition: Routed to [facility] and/or [facility] Care Team for further advice Future Visits Scheduled: Future Appointments-next 60 days Date/Time Provider Specialty Dept Phone 07/17/2024 11:30 AM [place], Nurse [facility] [phone] 08/10/2024 8:00 AM (Arrive by 7:45 AM) Emi Queen CRNP Gastroenterology [phone] 08/10/2024 2:40 PM (Arrive by 2:25 PM) Joanne Parks PA-C Dermatology [phone] 08/19/2024 10:00 AM Heidi Garcia RN [facility] [phone] 09/02/2024 10:00 AM (Arrive by 9:45 AM) Nurse Brianna Plata Nutrition [facility] Gastroenterology [phone] 09/30/2024 11:00 AM (Arrive by 10:45 AM) Calli Avila DPM Podiatry [phone] Vilma Liu RN documented in this encounter Plan of Treatment Upcoming Encounters Date Type Department Care Team (Late st Contact Info) Description 07/19/2024 9:00 AM EST Scheduled Telephone [facility], [facility] [address] [facility] [place] [address] [facility] [address] [facility] [place] [address] 08/10/2024 8:00 AM EST Office Visit Gastroenterology, [facility] [address] [place] [address] Emi Queen CRNP [address] [facility] [place] [address] 08/10/2024 2:40 PM EST Office Visit Dermatology, [facility] [address] [facility] [place] [phone] Joanne Parks PA-C [address] [place] [address] [place] [address] 08/19/2024 10:00 AM EST Home Visit [facility], [facility] [address] [facility] [place] [address] Heidi Garcia RN [address] [place] [address] 09/02/2024 10:00 AM EST Nurse Only Nutrition & Weight Management, [facility] [address] [facility] [place] [address] [facility] Nutrition [facility] [address] [place] [address] 09/30/2024 11:00 AM EDT Office Visit Podiatry [facility] [address] [place] [address] Margarita Calli Katya, DPM [address] [place] [address] Scheduled Procedures Name Priority Associated Diagnoses Date/Ti [...] this encounter Medical Devices Implanted Type Area Doll Dresser Device Identifier Shelf Expiration Date Model / Serial / Lot Coil Vortex 35 Pltinm [id number] - [id number] Implanted:Qty: 1 on 11/27/2021 by Sterling Cates MD at OR [facility] Right: Upper Arm [employer] : NEURO INTR [id number] 08/15/2024 [id number] / / [id number] Coil Vortex 35 Pltinm [id number] - [id number] Implanted:Qty: 1 on 11/27/2021 by Sterling Cates MD at OR [facility] Right: Upper Arm [employer] : NEURO INTR [id number] 08/15/2024 [id number] / / [id number] Coil Vortex 35 Pltinm [id number] - [id number] Implanted:Qty: 1 on 11/27/2021 by Sterling Cates MD at OR [facility] Right: Upper Arm [employer] : NEURO INTR [id number] 08/15/2024 [id number] / / [id number] Coil Vortex 35 Pltinm [id number] - [id number] Implanted:Qty: 1 on 11/27/2021 by Sterling Cates MD at OR [facility] Right: Upper Arm [employer] : NEURO INTR [id number] 05/16/2024 [id number] / / [id number] Azur 35 Detachable 5mm 11cm - [id number] Implanted:Qty: 1 on 03/19/2022 by Jose Devine MD at OR [facility] Right: Wrist [employer] [id number] 10/18/2025 [id number] / / [id number] Azur 35 Detachable 5mm 11cm - [id number] Implanted:Qty: 1 on 03/19/2022 by Jose Devine MD at OR [facility] Right: Wrist [employer] [id number] 06/19/2026 [id number] / / [id number] Mesh Flat Sheet 10x14 [id number] - [id number] Implanted:Qty: 1 on 12/11/2022 by Eros Dash MD at OR [facility] N/A: Abdomen CR BARD : DAVOL [id number] 06/17/2027 [id number] / / [id number] documented as of this encounter Advance Directives Documents on File Type Date Recorded Patient Filler Picker Expl anation POLST 11/13/2020 POLST PENNSYLVA VALERIA [...] Spouse Health Care Agent Care Teams Certified Nurse Aide Relationship Specialty Start Date End Date Luis Fernando Rojas MD PCP - General Family Medicine 09/23/16 documented as of this encounter
--- OUTSIDE RECORDS SUMMARY | 2024-10-05 05:35 | External Medical Summary | Summary of Care ---
Author Name Unknown Organization [facility] Address [address] [place] [address] Phone [phone] Care Team Providers Care Deputy Prosecuting Attorney Name Role Phone Luis Fernando Rojas MD Primary Care Provider [phone] Reason for Visit * Reason Onset Date Comments Health Maintenance 07/23/2024 Encounter Details Date Type Department Care Team (Late st Contact Info) Description 07/23/2024 Telephone [facility] [address] [place] [address] Luis Fernando Rojas MD [address] [place] [address] Health Maintenance Allergies Active Allergy Reactions Criticality Noted Date Comments Salvador Inhibitors Other (Please comment),Cough High HyperKalemia documented as of this encounter (statuses as of 07/23/2024) Medications Melatonin 10 MG Tablet Take 12 [...] less than 7.0% ([facility]) Inject 14 units with breakfast, [...] mouth in the morning. 03/23/20 24 Active [employer]Touch Verio In Vitro Strip (Glucose Blood) To test blood sugar 4 times daily. 400 Strip 1 4 6:47 AM EDT 04/20/20 24 Active OneTouch Delica Lancets 33G To test blood sugar 4 times daily. 400 Each 1 4 6:47 AM EDT 04/20/20 24 Active [employer]Touch Verio w/Device Kit Use as directed. 1 [...] chew. 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 Magallanes. M-W-F from [...] EDT): Gabapentin 600 mg at [facility] Assessment & Plan (05/07/2021 [...] as of this encounter (statuses as of 07/23/2024) Resolved Problems Problem Noted Date Diagnosed Date [...] T-tube placement 04/16/2017 05/29/2017 [employer] Other*[id number] 04/13/2013 08/27/2016 Overview (04/13/2013): Study Title: Genomic Markers for Patients with Cardiovascular Disease Project # [id number] See Supervisor: Siena Laws MD [phone] Hypertensive heart disease 03/25/2013 1 07/29/2016 Neuropathy, [...] as of this encounter (statuses as of 07/23/2024) Immunizations Name Administration Dates Next Due COVID-19 mRNA, LNP-s, No Pre serve, 2-Dose Series (Moderna) 04/09/2021,09/23/2020,08/19/2020 COVID-19, LNP-s, No Preserve , Espinoza-sucrose, Ages 12+ (Pfizer) 01/08/2022 COVID-19, MRNA-LNP, PF, 30 M CG/0.3 mL, 12 YRS AND ABOVE, IM (PFIZER-Comirnaty) 06/02/2024 HEPATITIS B VACCINE, RECOMB, 20 MCG/ML, ADULT (HEPLISAV-B) 09/05/2021,05/09/2021,04/04/2021,02/18 Hepatitis B, 20+ yrs 09/16/2018,04/14/2018,03/1104/11/2018 Pneumococcal Conjugate Vacci ne, 20-valent ([id number]) 06/22/2024,12/02/2023(Deferred: - pt states she's already received) [...] Telephone Encounter - Adela Petit LPN - 07/23/2024 9:07 AM EST Care Gaps Comprehensive Care Outreach Last Office/Telemedicine Visit: 06/22/2024 (in office), Visit date not found (telemedicine) Next Office Visit: Visit date not found Hemoglobin AIC Results: Lab Results Component Value [...] - [facility] 7.7 (H) 05/07/2024 03:07 PM BP Readings from Last 1 Encounters: 07/15/24 124/24 Reviewed Health Maintenance below: Health Maintenance Topic Date Due TSH 01/23/2023 Mammogram 07/08/2024 Depression Monitoring 08/14/2024 HbA1c 11/05/2024 Ov Lab already ordered mamm Care Gap Outreach Action Taken: Left message documented in this encounter Plan of Treatment Upcoming Encounters Date Type Department Care Team (Late st Contact Info) Description 08/10/2024 8:00 AM EST Office Visit Gastroenterology, [facility] [address] [facility] [place] [address] Emi Queen CRNP [address] [place] [address] 08/10/2024 2:40 PM EST Office Visit Dermatology, [facility] Krishna [address] [facility] [place] [phone] Joanne Parks PA-C [address] [place] [address] [place] [address] 08/19/2024 10:00 AM EST [facility] Visit [facility], [facility] [address] [place] [address] Heidi Garcia, RN [address] [facility] [place] [address] 09/02/2024 10:00 AM EST Nurse Only Nutrition & Weight Management, [facility] [address] [facility] [place] [address] [facility], Nurse Gi Nutrition [facility] [address] [facility] [place] [address] 09/30/2024 11:00 AM EDT Office Visit Podiatry [facility] [address] [place] [address] Calli Avila DPM [address] [place] [address] Scheduled Procedures Name Priority Associated Diagnoses Date/Ti [...] this encounter Medical Devices Implanted Type Area Hydraulic Auto Jack Mechanic Device Identifier Shelf Expiration Date Model / Serial / Lot Coil Vortex 35 Pltinm [id number] - [id number] Implanted:Qty: 1 on 11/27/2021 by Sterling Cates MD at OR [facility] [place] [place] Right: Upper Arm [employer] : NEURO INTR [id number] 08/15/2024 [id number] / / [id number] Coil Vortex 35 Pltinm [id number] - [id number] Implanted:Qty: 1 on 11/27/2021 by Sterling Cates MD at OR [facility] [place] Right: Upper Arm [employer] : NEURO INTR [id number] 08/15/2024 [id number] / / [id number] Coil Vortex 35 Pltinm [id number] - [id number] Implanted:Qty: 1 on 11/27/2021 by Sterling Cates MD at OR [facility] [place] Right: Upper Arm [employer] : NEURO INTR [id number] 08/15/2024 [id number] / [id number] Coil Vortex 35 Pltinm [id number] - [id number] Implanted:Qty: 1 on 11/27/2021 by Sterling Cates MD at OR [facility] [place] Right: Upper Arm [employer] : NEURO INTR [id number] 05/16/2024 [id number] Azur 35 Detachable 5mm 11cm - [id number] Implanted:Qty: 1 on 03/19/2022 by Jose Devine MD at OR [facility] [place] Right: Wrist [employer] [id number] 10/18/2025 [id number] / / [id number] Azur 35 Detachable 5mm 11cm - [id number] Implanted:Qty: 1 on 03/19/2022 by Jose Devine MD at OR [facility] [place] Right: Wrist [employer] [id number] 06/19/2026 [id number] / / [id number] Mesh Flat Sheet 10x14 [id number] - [id number] Implanted:Qty: 1 on 12/11/2022 by Eros Dash MD at OR [facility] [place] N/A: Abdomen CR BARD : DAVOL [id number] 06/17/2027 [id number] / / [id number] documented as of this encounter Advance Directives Documents on File Type Date Recorded Patient Dock Guard Expl anation POLST 11/13/2020 POLST PENNSYLVA VALERIA [...] Spouse Health Care Agent Care Teams Deputy Prosecuting Attorney Relationship Specialty Start Date End Date Luis Fernando Rojas MD PCP - General Family Medicine 09/23/16 documented as of this encounter
--- OUTSIDE RECORDS SUMMARY | 2024-10-05 05:35 | External Medical Summary | Summary of Care ---
Author Name Unknown Organization [facility] Address [address] [place] [address] Phone [phone] Care Team Providers Care Bitumen Plant Operator Name Role Phone Luis Fernando Rojas MD Primary Care Provider [phone] Reason for Visit * Reason Onset Date Comments [facility]: Maintenance 07/16/2024 Encounter Details Date Type Department Care Team (Late st Contact Info) Description 07/16/2024 1:15 PM EST Scheduled Telephone [facility], [facility] [address] [place] [address] [facility], Nurse [facility] [address] [place] [address] Allergies Active Allergy Reactions Criticality Noted Date [...] less than 7.0% ([facility]) Inject 14 units with breakfast, 4 units [...] mouth in the morning. 03/23/20 24 Active Jacent TechnologiesToSimris Alg Verio In Vitro Strip (Glucose Blood) To test blood sugar 4 times daily. 400 Strip 1 4 6:47 AM EDT 04/20/20 24 Active OneTouch Delica Lancets 33G To test blood sugar 4 times daily. 400 Each 1 4 6:47 AM EDT 04/20/20 24 Active Jacent TechnologiesTouch Verio w/Device Kit Use as directed. 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 10/15/2022 MORFIN RESEARCH OTHER*[id number] 01/01/2022 S/P gastric bypass 01/01/2022 [address] AV [...] 8:45 AM EDT): Gabapentin 600 mg at [facility] Assessment & Plan (05/07/2021 [...] Insulin long-term use 11/19/20182018 Overview (05/20/2019): Duplicate [facility] (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 insulin 11/19/2018 [...] T-tube placement 04/16/2017 05/29/2017 Genomics Card[employer] Research Other*[id number] 04/13/2013 08/27/2016 Overview (04/13/2013): Study Title: Genomic Markers for Patients with Cardiovascular Disease Project # [id number] Early Childhood Associate Teacher: Siena Laws MD [phone] Hypertensive heart disease 03/25/2013 1 07/29/2016 Neuropathy, [...] yrs 09/16/2018,04/14/2018,03/1104/11/2018 Pneumococcal Conjugate Vacci ne, 20-valent (Phjmzym33) 06/22/2024,12/02/2023(Deferred: - pt states she's already received) [...] encounter Miscellaneous Notes * Telephone Encounter - Sofia Gipson RN - 07/16/2024 9:41 AM EST Called and spoke with patient Reviewed CXR findings, no need for antbx as no infection(PNA) no CHF noted Advised her to continue the medications ordered Stay hydrated with plenty of water, use nebulizer as ordered Call [place] if after 2-3 days her symptoms are not improving. Pt agreed. Follow up call set for 07/17 Sofia Gipson RN, BSN registered medical transcriptionistCafeteria Assistant [phone] option #1 * Telephone Encounter - Marco Antonio Kirkland MD - 07/16/2024 9:05 AM EST Noted. No PNA of c/f CHF exacerbation per CXR. E * Telephone Encounter - Sofia Gipson RN - 07/16/2024 8:54 AM EST Images from the original note were not included. [facility] Telephonic Nurse Follow-Up Call [facility] Subprogram: Short-Term Management (less than 3 [...] Status: No change in symptoms Current Concerns: MEC, left message on identified voicemail, requesting callback to [facility] with updateon symptoms, did she start taking medication ordered yesterday, any benefit/improvement from them ? Requested callback to [facility], [phone] option #1 provided Disposition: [facility] Team for further advice Future Visits Scheduled: Future Appointments-next 60 days Date/Time Provider Specialty Dept Phone 07/16/2024 12:40 PM (Arrive by 12:25 PM) Meena Hassan MD Internal Medicine [phone] 07/16/2024 1:15 PM [facility], Nurse [facility] at Home [phone] 07/17/2024 11:30 AM [facility], Nurse [facility] at Home [phone] 08/10/2024 8:00 AM (Arrive by 7:45 AM) Emi Queen CRNP Gastroenterology [phone] 08/10/2024 2:40 PM (Arrive by 2:25 PM) Joanne Parks PA-C Dermatology [phone] 08/19/2024 10:00 AM Heidi Garcia RN [facility] [phone] 09/02/2024 10:00 AM (Arrive by 9:45 AM) Nurse Brianna Plata Nutrition [facility] Gastroenterology [phone] 09/30/2024 11:00 AM (Arrive by 10:45 AM) Calli Avila DPM Podiatry [phone] Sofia Gipson, RN documented in this encounter Plan of Treatment Upcoming Encounters Date Type Department Care Team (Late st Contact Info) Description 07/16/2024 12:40 PM EST Office Visit General Internal Medicine [facility] 200 [facility] [place] [address] Meena Hassan MD 200 [facility] [place] [address] 07/17/2024 11:30 AM EST Scheduled Telephone [facility], [facility] 132 [facility] [place] [address] [facility], Nurse [facility] 132 [facility] [place] [address] 08/10/2024 8:00 AM EST Office Visit Gastroenterology, [facility] 132 [facility] [place] [address] Emi Queen CRNP 132 [facility] [place] [address] 08/10/2024 2:40 PM EST [facility] [phone] Joanne Parks PA-C [address] [place] [address] [place] [address] 08/19/2024 10:00 AM EST Home Visit [facility], [facility] 132 [facility] [place] [address] Heidi Garcia, RN [address] [place] [address] 09/02/2024 10:00 AM EST Nurse Only Nutrition & Weight Management, [facility] 132 [facility] [place] [address] [facility], Nurse Gi Nutrition Rust 132 [facility] [place] [address] 09/30/2024 11:00 AM EDT Office Visit Podiatry [facility] 132 [facility] [place] [address] Calli Avila DPM 132 [facility] [place] [address] Scheduled Procedures Name Priority Associated Diagnoses Date/Ti [...] this encounter Medical Devices Implanted Type Area Printer Repair Technician Device Identifier Shelf Expiration Date Model / Serial / Lot Coil Vortex 35 Pltinm [id number] - [id number] Implanted:Qty: 1 on 11/27/2021 by Sterling Cates MD at [place] [facility] Right: Upper Arm [employer] : NEURO INTR [id number] 08/15/2024 [id number] Coil Vortex 35 Pltinm [id number] - [id number] Implanted:Qty: 1 on 11/27/2021 by Sterling Cates MD at OR [facility] Right: Upper Arm [employer] : NEURO INTR [id number] 08/15/2024 [id number] / [id number] Coil Vortex 35 Pltinm [id number] - [id number] Implanted:Qty: 1 on 11/27/2021 by Sterling Cates MD at OR [facility] Right: Upper Arm [employer] : NEURO INTR [id number] 08/15/2024 [id number] / / [id number] Coil Vortex 35 Pltinm 132134 - [id number] Implanted:Qty: 1 on 11/27/2021 by Sterling Cates MD at OR [facility] Right: Upper Arm [employer] : NEURO INTR [id number] 05/16/2024 [id number] / / [id number] Azur 35 Detachable 5mm 11cm - [id number] Implanted:Qty: 1 on 03/19/2022 by Jose Devine MD at OR [facility] Right: Wrist [employer] [id number] 10/18/2025 [id number] / / [id number] Azur 35 Detachable 5mm 11cm - [id number] Implanted:Qty: 1 on 03/19/2022 by Jose Devine MD at OR [facility] Right: Wrist [employer] [id number] 06/19/2026 [id number] / / [id number] Mesh Flat Sheet 10x14 [id number] - [id number] Implanted:Qty: 1 on 12/11/2022 by Eros Dash MD at OR [facility] N/A: Abdomen CR BARD : DAVOL [id number] 06/17/2027 [id number] / / [id number] documented as of this encounter Advance Directives Documents on File Type Date Recorded Patient Analytics Lead Expl anation HENRY 11/13/2020 POLST FRAGAA VALERIA ORDERS FOR LIFE-SUSTAINING [...] Finley Spouse Health Care Agent Care Teams Bitumen Plant Operator Relationship Specialty Start Date End Date Luis Fernando Rojas MD PCP - General Family Medicine 09/23/16 documented as of this encounter
--- OUTSIDE RECORDS SUMMARY | 2024-10-05 05:36 | External Medical Summary | Summary of Care ---
Author Name Unknown Organization [facility] Address [address] [place] [address] Phone [phone] Care Team Providers Care Director Of Sustainability Programs Name Role Phone Luis Fernando Rojas MD Primary Care Provider [phone] Reason for Visit * Reason Onset Date Comments Information 07/15/2024 Encounter Details Date Type Department Care Team (Late st Contact Info) Description 07/15/2024 Telephone [facility], [place] [address] [place] [address] Vonda Morgan, MINISTERIO [address] [place] [address] Information (//) Allergies Active Allergy Reactions Criticality Noted Date Comments Salvador Inhibitors Other (Please comment),Cough High HyperKalemia documented as of this encounter (statuses as of 07/15/2024) Medications Melatonin 10 MG Tablet Take 12 [...] goal of less than 7.0% ([facility]) Inject 14 units with breakfast, 4 units [...] mouth in the morning. 03/23/20 24 Active ToolWireToSkiipiio In Vitro Strip (Glucose Blood) To test blood sugar 4 times daily. 400 Strip 1 4 6:47 AM EDT 04/20/20 24 Active OneTouch Delica Lancets 33G To test blood sugar 4 times daily. 400 Each 1 4 6:47 AM EDT 04/20/20 24 Active ToolWireTouch Verio w/Device Kit Use as directed. 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 10/15/2022 MORFIN RESEARCH OTHER*[id number] 01/01/2022 S/P gastric bypass 01/01/2022 [address] [...] AM EDT): Gabapentin 600 mg at [facility] Assessment & Plan (05/07/2021 11:11 AM [...] as of this encounter (statuses as of 07/15/2024) Resolved Problems Problem Noted Date Diagnosed Date [...] Insulin long-term use 11/19/20182018 Overview (05/20/2019): Duplicate group home (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 insulin [...] T-tube placement 04/16/2017 05/29/2017 Genomics Cardio Research Other*[id number] 04/13/2013 08/27/2016 Overview (04/13/2013): Study Title: Genomic Markers for Patients with Cardiovascular Disease Project # [id number] Drug Abuse Social Worker: Siena Laws MD [phone] Hypertensive heart disease 03/25/2013 1 07/29/2016 Neuropathy, [...] as of this encounter (statuses as of 07/15/2024) Immunizations Name Administration Dates Next Due COVID-19 mRNA, LNP-s, No Pre serve, 2-Dose Series (Moderna) 04/09/2021,09/23/2020,08/19/2020 COVID-19, LNP-s, No Preserve , Espinoza-sucrose, Ages 12+ (Pfizer) 01/08/2022 COVID-19, MRNA-LNP, PF, 30 M CG/0.3 mL, 12 YRS AND ABOVE, IM (PFIZER-Comirnaty) 06/02/2024 HEPATITIS B VACCINE, RECOMB, 20 MCG/ML, ADULT (HEPLISAV-B) 09/05/2021,05/09/2021,04/04/2021,02/18 Hepatitis B, 20+ yrs 09/16/2018,04/14/2018,03/1104/11/2018 Pneumococcal Conjugate Vacci ne, 20-valent (Ecsuspx92) 06/22/2024,12/02/2023(Deferred: - pt states she's already received) [...] encounter Miscellaneous Notes * Telephone Encounter - Vonda Morgan OSA - 07/15/2024 11:59 AM EST Request form dashboard to fax CXR to [facility] I faxed and then called and confirmed receipt of it but they didn't know how soon they could get out to do it, if it could be today or tomorrow documented in this encounter Plan of Treatment Upcoming Encounters Date Type Department Care Team (Late st Contact Info) Description 07/16/2024 10:15 AM EST Scheduled Telephone [facility] [address] [place] [address] Coordinator, [facility] [address] [place] [address] 07/16/2024 12:40 PM EST Office Visit General Internal Medicine [facility] [address] [place] [address] Meena Hassan MD [address] [place] [address] 07/17/2024 11:30 AM EST Scheduled Telephone [facility], [facility] 132 [facility] [place] [address] [facility], Nurse [facility] 132 [facility] [place] [address] 08/10/2024 8:00 AM EST Office Visit Gastroenterology, [facility] 132 [facility] [place] [address] Emi Queen CRNP 132 [facility] [place] [address] 08/10/2024 2:40 PM EST Office Visit Dermatology, [facility] [address] [facility] [phone] Joanne Parks PA-C [address] [place] [address] [place] [address] 08/19/2024 10:00 AM EST Home Visit [facility], [facility] 132 [facility] [place] [address] Heidi Garcia, RN 132 [facility] [place] [address] 09/02/2024 10:00 AM EST Nurse Only Nutrition & Weight Management, [facility] 132 [facility] [place] [address] [facility] Nurse Gi Nutrition [facility] 132 [facility] [place] [address] 09/30/2024 11:00 AM EDT Office Visit Podiatry [facility] 132 [facility] [place] [address] Calli Avila DPM 132 [place] [address] Scheduled Procedures Name Priority Associated Diagnoses Date/Ti [...] this encounter Medical Devices Implanted Type Area Care Transport Nurse Device Identifier Shelf Expiration Date Model / Serial / Lot Coil Vortex 35 Pltinm [id number] - [id number] Implanted:Qty: 1 on 11/27/2021 by Sterling Cates MD at OR [facility] Right: Upper Arm [employer] : NEURO INTR [id number] 08/15/2024 [id number] / / [id number] Coil Vortex 35 Pltinm [id number] - [id number] Implanted:Qty: 1 on 11/27/2021 by Sterling Cates MD at OR [facility] Right: Upper Arm [employer] : NEURO INTR [id number] 08/15/2024 [id number] / / [id number] Coil Vortex 35 Pltinm [id number] - [id number] Implanted:Qty: 1 on 11/27/2021 by Sterling Cates MD at OR [facility] Right: Upper Arm [employer] : NEURO INTR [id number] 08/15/2024 [id number] / / [id number] Coil Vortex 35 Pltinm [id number] - [id number] Implanted:Qty: 1 on 11/27/2021 by Sterling Cates MD at OR [facility] Right: Upper Arm [employer] : NEURO INTR [id number] 05/16/2024 [id number] / / [id number] Azur 35 Detachable 5mm 11cm - [id number] Implanted:Qty: 1 on 03/19/2022 by Jose Devine MD at OR [facility] Right: Wrist Manifact [id number] 10/18/2025 [id number] / / [id number] Azur 35 Detachable 5mm 11cm - [id number] Implanted:Qty: 1 on 03/19/2022 by Jose Devine MD at OR [facility] Right: Wrist Manifact [id number] 06/19/2026 [id number] / / [id number] Mesh Flat Sheet 10x14 [id number] - [id number] Implanted:Qty: 1 on 12/11/2022 by Eros Dash MD at OR [facility] N/A: Abdomen CR BARD : DAVOL [id number] 06/17/2027 [id number] / / [id number] documented as of this encounter Advance Directives Documents on File Type Date Recorded Patient Car Refinisher Expl anation POLST 11/13/2020 POLST PENNSYLVA VALERIA [...] Finley Spouse Health Care Agent Care Teams Director Of Sustainability Programs Relationship Specialty Start Date End Date uLis Fernando Rojas MD PCP - General Family Medicine 09/23/16 documented as of this encounter
--- OUTSIDE RECORDS SUMMARY | 2024-10-05 05:36 | External Medical Summary | Summary of Care ---
Author Name Unknown Organization [facility] Address [address] [place] [address] Phone [phone] Care Team Providers Care Rod Piler Name Role Phone Luis Fernando Rojas MD Primary Care Provider [phone] Encounter Details Date Type Department Care Team (Late st Contact Info) Description 07/15/2024 Telephone [facility], [facility] [address] [facility] [place] [address] Marco Antonio Kirkland MD [address] [facility] [place] [address] Allergies Active Allergy Reactions Criticality Noted Date [...] mouth in the morning. 03/23/20 24 Active [employer] In Vitro Strip (Glucose Blood) To test blood sugar 4 times daily. 400 Strip 1 4 6:47 AM EDT 04/20/20 24 Active [employer] Delica Lancets 33G To test blood sugar 4 times daily. 400 Each 1 4 6:47 AM EDT 04/20/20 24 Active Diatherix Laboratoriesio w/Device Kit Use as directed. 1 Kit [...] morning and 1 Tablet before bedtime. 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 Mag[facility]. M-W-F from [...] T-tube placement 04/16/2017 05/29/2017 Gen[employer] Other*[id number] 04/13/2013 08/27/2016 Overview (04/13/2013): Study Title: Genomic Markers for Patients with Cardiovascular Disease Project # [id number] Mail Reader: Siena Laws MD [phone] Hypertensive heart disease 03/25/2013 1 07/29/2016 Neuropathy, [...] causing renal disease 05/21/2018 Iron deficiency anemia 11/09 /2017 Overview (03/16/2010): low iron Obesity, morbid (more [...] CG/0.3 mL, 12 YRS AND ABOVE, IM (Mobilitrix-Comirnaty) 06/02/2024 HEPATITIS B VACCINE, RECOMB, 20 MCG/ML, ADULT (HEPLISAV-B) 09/05/2021,05/09/2021,04/04/2021,02/18 Hepatitis B, 20+ yrs 09/16/2018,04/14/2018,03/1104/11/2018 Pneumococcal Conjugate Vacci ne, 20-valent (Eofsixl39) 06/22/2024,12/02/2023(Deferred: - pt states she's already received) [...] Miscellaneous Notes * Telephone Encounter - Chica Ramirez LPN - 07/15/2024 3:49 PM EST See other encounter from today. [facility] faxed CXR order to [facility] * Telephone Encounter - Marco Antonio Kirkland MD - 07/15/2024 10:37 AM EST CXR ordered for [employer]. documented in this encounter Plan of Treatment Upcoming Encounters Date Type Department Care Team (Late st Contact Info) Description 07/16/2024 12:40 PM EST Office Visit General Internal Medicine [facility] 200 [facility] [place] [address] Meena Hassan MD 200 [facility] [place] [address] 07/16/2024 1:15 PM EST Scheduled Telephone [facility], [facility] 132 [facility] [place] [address] Region, Nurse [address] [place] [address] 07/17/2024 11:30 AM EST Scheduled Telephone [facility] [place], [facility] 132 [facility] [place] [address] Region, Nurse [address] [place] [address] 08/10/2024 8:00 AM EST Office Visit Gastroenterology, [facility] 132 [facility] [place] [address] Emi Queen CRNP 132 [facility] [place] [address] 08/10/2024 2:40 PM EST Office Visit Dermatology, [facility] 226 [facility] [place] [phone] Joanne Parks PA-C [address] [place] [address] [place] [address] 08/19/2024 10:00 AM EST Home Visit [facility], [facility] 132 [facility] [place] [address] Heidi Garcia RN 132 [facility] [place] [address] 09/02/2024 10:00 AM EST Nurse Only Nutrition & Weight Management, [facility] 132 [facility] [place] [address] [facility], Nurse Gi Nutrition [facility] 132 [facility] [place] [address] 09/30/2024 11:00 AM EDT Office Visit Podiatry [facility] 132 [facility] [place] [address] Calli Avila DPM 132 [facility] [place] [address] Scheduled Procedures Name Priority Associated Diagnoses Date/Ti [...] this encounter Medical Devices Implanted Type Area Respiratory Care Program Director Device Identifier Shelf Expiration Date Model / Serial / Lot Coil Vortex 35 Pltinm [id number] - [id number] Implanted:Qty: 1 on 11/27/2021 by Sterling Cates MD [place] [facility] [place]: Upper Arm [employer] : NEURO INTR [id number] 08/15/2024 [id number] / / [id number] Coil Vortex 35 Pltinm 248977 - [id number] Implanted:Qty: 1 on 11/27/2021 by Sterling Cates MD at [place] [facility] Right: Upper Arm [employer] : NEURO INTR [id number] 08/15/2024 [id number] / / [id number] Coil Vortex 35 Pltinm 103708 - [id number] Implanted:Qty: 1 on 11/27/2021 by Sterling Cates MD [place] [facility] Right: Upper Arm [employer] : NEURO INTR [id number] 08/15/2024 [id number] / / [id number] Coil Vortex 35 Pltinm 107810 - [id number] Implanted:Qty: 1 on 11/27/2021 by Sterling Cates MD at [place] [facility] Right: Upper Arm [employer] : NEURO INTR [id number] 05/16/2024 [id number] / / [id number] Azur 35 Detachable 5mm 11cm - [id number] Implanted:Qty: 1 on 03/19/2022 by Jose Devine MD at [place] [facility] Right: Wrist [employer] [id number] 10/18/2025 [id number] / / [id number] Azur 35 Detachable 5mm 11cm - [id number] Implanted:Qty: 1 on 03/19/2022 by Jose Devine MD at [place] [facility] Right: Wrist [employer] [id number] 06/19/2026 [id number] / / [id number] Mesh Flat Sheet 10x14 [id number] - [id number] Implanted:Qty: 1 on 12/11/2022 by Eros Dash MD at [place] [facility] N/A: Abdomen CR BARD : DAVOL [id number] 06/17/2027 [id number] / / [id number] documented as of this encounter Advance Directives Documents on File Type Date Recorded Patient Storage Consultant Saranya FIGUEROA 11/13/2020 [facility] ORDERS FOR [...] Name Relationship Healthcare Agent Relationshi p Communication Zhne Finley Spouse Health Care Agent Care Teams Rod Piler Relationship Specialty Start Date End Date Luis Fernando Rojas MD PCP - General Family Medicine 09/23/16 documented as of this encounter
--- OUTSIDE RECORDS SUMMARY | 2024-10-05 05:36 | External Medical Summary | Summary of Care ---
Author Name Unknown Organization [facility] Address [address] [place] [address] Phone [phone] Care Team Providers Care Make Up Girl Name Role Phone Luis Fernando Rojas MD Primary Care Provider [phone] Encounter Details Date Type Department Care Team (Late st Contact Info) Description 07/15/2024 10:00 AM EST [facility] [address] [place] [address] Heidi Garcia, RN [address] [place] [address] Allergies Active Allergy Reactions Criticality Noted Date [...] Glargine Solostar 100 UNIT/ML Subcutaneous Solution Pen-injector (Basjose l Zhou)Indicati ons:Type 2 diabetes mellitus with hemoglobin A1c goal of less than 7.0% (HCC) Inject 16 units subcutaneously every day. 30 mL 4 10/28/19 24 Active Insulin Lispro (1 Unit Dial) 100 UNIT/ML Subcutaneous Solution Pen-injector (HumaLOG KwikPen)Indicati ons:Type 2 diabetes mellitus with hemoglobin A1c goal of less than 7.0% ([facility]) Inject 14 units with breakfast, 4 [...] mouth in the morning. 03/23/20 24 Active SyMynd In Vitro Strip (Glucose Blood) To test blood sugar 4 times daily. 400 Strip 1 4 6:47 AM EDT 04/20/20 24 Active RevelationTouch Delica Lancets 33G To test blood sugar 4 times daily. 400 Each 1 4 6:47 AM EDT 04/20/20 24 Active Mavinio w/Device Kit Use as directed. 1 Kit 4 6:47 AM EDT 04/20/20 24 Active buPROPion HCl ER (SR) 150 MG Oral Tablet Extended Release 12 Hour (Wellbutrin SR) Take 1 Tablet by mouth every evening. 90 Tablet 1:04 PM EST 06/02/20 Active Albuterol Sulfate 0.63 MG/3ML Inhalation Nebulization Solution (Accuneb) Inhale 1 Vial via nebulizer every 6 hours as needed for Wheezing. Active guaiFENesin ER 600 MG Oral Tablet Extended Release 12 Hour (Humibid LA) Take 1 Tablet by mouth in the morning and 1 Tablet before bedtime. Active Fluticasone Propionate 50 MCG/ACT Nasal Suspension (Flonase) Administer 2 Sprays into each nostril in the morning. 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 [id number] 10/17/2023 12/11/19 25 Active documented as of [...] 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 10/15/2022 [facility] OTHER*[id number] 01/01/2022 S/P gastric bypass 01/01/2022 [address] [...] T-tube placement 04/16/2017 05/29/2017 [employer] Other*[id number] 04/13/2013 08/27/2016 Overview (04/13/2013): Study Title: Genomic Markers for Patients with Cardiovascular Disease Project # [id number] Welder Experimental: Siena Laws MD [phone] Hypertensive heart disease 03/25/2013 1 07/29/2016 Neuropathy, [...] yrs 09/16/2018,04/14/2018,03/1104/11/2018 Pneumococcal Conjugate Vacci ne, 20-valent ([id number]) 06/22/2024,12/02/2023(Deferred: - pt states she's already received) [...] Sign Reading Time Taken Comments Blood Pressure 124/24 07/15/2024 10:27 AM EST Pulse 80 07/15/2024 10:27 AM EST Temperature 37.1 C (98.7 F) 07/15/2024 10:[address] Respiratory Rate 18 07/15/2024 10:27 AM EST Oxygen Saturation 94% 07/15/2024 10:27 AM EST Inhaled Oxygen Concentration - - [...] Progress Notes * Heidi Garcia RN - 07/15/2024 10:00 AM EST Current Concerns: Candi Malia [id number] Pt seen for CLIFFORD Admitted to [facility] 07/07 - 07/09/24 for Rhinovirus, acute hypoxemic respiratory failure, volume overload Pt reports she is still feeling bad States cough is not improving and coughs "about 18 hours a day" Mucus is clear to light yellow Reports decreased energy as she has not slept well in a week d/t the coughing Reports she has been using nebulizer but it does not seem to be helping much She reports she has a chest discomfort of right side chest wall that started this morning, has beenconstant and does not feel it is worse with coughing or moving Rhonchi throughout lung torres Has cpap but has not used it since hospitalization Pt states dialysis has been hearing rattling in her lungs as well VS - 98.7 - 80 - 18-124/64 - 94% TT to [facility] with assessment Ordered CXR Script send to cough syrup with codeine and tessalon perles (depending on cost of cough syrup) Will arrange for 24 and 48 hr f/u calls Physical Exam: Physical Exam Constitutional: Appearance: She is ill-appearing. Cardiovascular: Rate and Rhythm: Normal rate and regular rhythm. Pulses: Normal pulses. Heart sounds: Normal heart sounds. Pulmonary: Breath sounds: Rhonchi present. Abdominal: Palpations: Abdomen is soft. Skin: General: Skin is warm and dry. Neurological: Mental Status: She is alert and oriented to person, place, and time. Review of Systems: Review of Systems Constitutional: Positive for fatigue. Respiratory: Positive for cough, chest tightness and shortness of breath. Gastrointestinal: Negative. Skin: Negative. Neurological: Positive for weakness. Psychiatric/Behavioral: Positive for sleep disturbance. Care Plan Goal Progress: Patient will maintain management & treatment regimen. (Progressing) Start: 04/20/24 GS - Patient/caregiver will verbalize proper technique in daily weight monitoring with heart failure. (Progressing) Start: 04/20/24 Expected End: 08/20/24 GS - Patient/caregiver will verbalize importance of fluid restriction compliance in the management of heart failure (Progressing) Start: 04/20/24 Expected End: 08/20/24 GS - Patient/caregiver will verbalize an understanding of diagnosis, treatment and self management of heart failure (Progressing) Start: 04/20/24 Expected End: 08/20/24 GS - Patient/caregiver will notify provider of edema. (Progressing) Start: 04/20/24 Expected End: 08/20/24 GS - Patient/caregiver will notify provider with weight gain with heart failure as per established limits set by provider. (Progressing) Start: 04/20/24 Expected End: 08/20/24 Orders Placed: No orders of the defined types were placed in this encounter. Medications Given: Care Gaps: Care Gaps Care gaps closed this contact: Lab/radiology testing coordinated;Education;Medications;Plan of Care(POC) (07/15/24 1039) Type of education: Clinical/disease (07/15/24 1030) Type of medication care gap: Medication adherence;Medication optimization;Meds to bed arranged (07/15/24 1032) Type of plan of care (POC) care gap: Adjustment of plan of care (POC) and/or Integrated Care Plan (ICP);Education and review of exacerbation plan (07/15/24 1039) documented in this encounter Plan of Treatment Upcoming Encounters Date Type Department Care Team (Late st Contact Info) Description 07/16/2024 10:15 AM EST Scheduled Telephone [facility], [address] [place] [address] Coordinator, [facility] [address] [place] [address] 07/16/2024 12:40 PM EST Office Visit General Internal Medicine [facility] [address] [facility] [place] [address] Meena Hassan MD [address] [facility] [place] [address] 07/17/2024 11:30 AM EST Scheduled Telephone [facility], [facility] [address] [place] [address] Region, Nurse [address] [place] [address] 08/10/2024 8:00 AM EST Office Visit Gastroenterology, [facility] [address] [place] [address] Emi Queen CRNP [address] [facility] [place] [address] 08/10/2024 2:40 PM EST Office Visit Dermatology, [facility] [address] [place] [phone] Joanne Parks PA-C [address] [place] [address] [place] [address] 08/19/2024 10:00 AM EST Home Visit [facility], [facility] [address] [facility] [place] [address] Heidi Garcia, RN 132 [facility] [place] [address] 09/02/2024 10:00 AM EST Nurse Only Nutrition & Weight Management, [facility] [address] [facility] [place] [address] [facility], Nurse Gi Nutrition [facility] 132 [facility] [place] [address] 09/30/2024 11:00 AM EDT Office Visit Podiatry [facility] 132 [facility] [place] [address] Calli Avila DPM [address] [facility] [place] [address] Scheduled Procedures Name Priority Associated Diagnoses Date/Ti [...] this encounter Medical Devices Implanted Type Area Customer Operations Specialist Device Identifier Shelf Expiration Date Model / Serial / Lot Coil Vortex 35 Pltinm [id number] - [id number] Implanted:Qty: 1 on 11/27/2021 by Sterling Cates MD at [place] [facility] Right: Upper Arm [employer] : NEURO INTR [id number] 08/15/2024 [id number] Coil Vortex 35 Pltinm [id number] - [id number] Implanted:Qty: 1 on 11/27/2021 by Sterling Cates MD at [place] [facility] Right: Upper Arm [employer] : NEURO INTR [id number] 08/15/2024 [id number] Coil Vortex 35 Pltinm [id number] - [id number] Implanted:Qty: 1 on 11/27/2021 by Sterling Cates MD at [place] [facility] Right: Upper Arm [employer] : NEURO INTR [id number] 08/15/2024 [id number] / / [id number] Coil Vortex 35 Pltinm [id number] - [id number] Implanted:Qty: 1 on 11/27/2021 by Sterling Cates MD at [facility] Right: Upper Arm [employer] : NEURO INTR [id number] 05/16/2024 [id number] / / [id number] Azur 35 Detachable 5mm 11cm - [id number] Implanted:Qty: 1 on 03/19/2022 by Jose Devine MD at [place] [facility] Right: Wrist [employer] [id number] 10/18/2025 [id number] / / [id number] Azur 35 Detachable 5mm 11cm - [id number] Implanted:Qty: 1 on 03/19/2022 by Jose Devine MD at OR [facility] Right: Wrist [employer] [id number] 06/19/2026 [id number] / / [id number] Mesh Flat Sheet 10x14 [id number] - [id number] Implanted:Qty: 1 on 12/11/2022 by Eros Dash MD at [place] [facility] N/A: Abdomen CR BARD : DAVOL [id number] 06/17/2027 [id number] / / [id number] documented as of this encounter Advance Directives Documents on File Type Date Recorded Patient Clinical Laboratory Science Professor Expl anation POLST 11/13/2020 POLST [place] [...] Agents on File Name Relationship Healthcare Agent Relationsdc p Communication Zhen Finley Spouse Health Care Agent Care Teams Make Up Girl Relationship Specialty Start Date End Date Luis Fernando Rojas MD PCP - General Family Medicine 09/23/16 documented as of this encounter
--- OUTSIDE RECORDS SUMMARY | 2024-10-05 05:37 | External Medical Summary | Summary of Care ---
Author Name Unknown Organization [facility] Address [address] [place] [address] Phone [phone] Care Team Providers Care Arborist Name Role Phone Luis Fernando Rojas MD Primary Care Provider Reason for Visit * Reason Onset Date Comments Appointment 07/12/2024 Encounter Details Date Type Department Care Team (Late st Contact Info) Description 07/12/2024 Telephone [facility], [place] [address] [place] [address] [place], Ayad, MINISTERIO [address] [place] [address] Appointment Allergies Active Allergy Reactions Criticality Noted Date Comments Salvador Inhibitors Other (Please comment),Cough High HyperKalemia documented as of this encounter (statuses as of 07/12/2024) Medications Melatonin 10 MG Tablet Take 12 [...] [facility]) Inject 14 units with breakfast, 4 units [...] mouth in the morning. 03/23/20 24 Active Voxel.pl In Vitro Strip (Glucose Blood) To test blood sugar 4 times daily. 400 Strip 1 4 6:47 AM EDT 04/20/20 24 Active MyMosaTouch Delica Lancets 33G To test blood sugar 4 times daily. 400 Each 1 4 6:47 AM EDT 04/20/20 24 Active MyMosaToWebvanta Verio w/Device Kit Use as directed. 1 Kit 4 6:47 AM EDT 04/20/20 24 Active buPROPion HCl ER (SR) 150 MG Oral Tablet Extended Release 12 Hour (Wellbutrin SR) Take 1 Tablet by mouth every evening. 90 Tablet 1:04 PM EST 06/02/20 Active Fluticasone Propionate 50 MCG/ACT Nasal Suspension (Flonase) Administer 2 Sprays into each nostril in the morning. 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 10/15/2022 [facility] OTHER*[id number] 01/01/2022 S/P gastric bypass 01/01/[address] [...] 8:45 AM EDT): Gabapentin 600 mg at [facility] Assessment & Plan (05/07/2021 11:11 AM EDT): [...] as of this encounter (statuses as of 07/12/2024) Resolved Problems Problem Noted Date Diagnosed Date [...] long-term use 11/19/20182018 Overview (05/20/2019): Duplicate terminal worker (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 insulin 11/19/2018 10/08/2022 [...] T-tube placement 04/16/2017 05/29/2017 [employer] Other*[id number] 04/13/2013 08/27/2016 Overview (04/13/2013): Study Title: Genomic Markers for Patients with Cardiovascular Disease Project # [id number] Living Coach: Siena Laws MD [phone] Hypertensive heart disease 03/25/2013 1 07/29/2016 Neuropathy, [...] as of this encounter (statuses as of 07/12/2024) Immunizations Name Administration Dates Next Due COVID-19 mRNA, LNP-s, No Pre serve, 2-Dose Series (Moderna) 04/09/2021,09/23/2020,08/19/2020 COVID-19, LNP-s, No Preserve , Espinoza-sucrose, Ages 12+ (Pfizer) 01/08/2022 COVID-19, MRNA-LNP, PF, 30 M CG/0.3 mL, 12 YRS AND ABOVE, IM (PFIZER-Comirnaty) 06/02/2024 HEPATITIS B VACCINE, RECOMB, 20 MCG/ML, ADULT (HEPLISAV-B) 09/05/2021,05/09/2021,04/04/2021,02/18 Hepatitis B, 20+ yrs 09/16/2018,04/14/2018,03/1104/11/2018 Pneumococcal Conjugate Vacci ne, 20-valent ([id number]) 06/22/2024,12/02/2023(Deferred: - pt states she's already received) [...] encounter Miscellaneous Notes * Telephone Encounter - Ayad Zurita OSA - 07/12/2024 9:01 AM EST TT to schedule a CLIFFORD with Heidi Garcia on 07/15. Appt scheduled and call placed to pt who is agreeable. documented in this encounter Plan of Treatment Upcoming Encounters Date Type Department Care Team (Late st Contact Info) Description 07/15/2024 10:00 AM EST Home Visit [facility] [address] [place] [address] Heidi Garcia RN [address] [place] [address] 08/10/2024 8:00 AM EST Office Visit Gastroenterology, [facility] [address] [place] [address] Emi Queen CRNP [address] [place] [address] 08/10/2024 2:40 PM EST Office Visit Dermatology, [facility] [address] [place] [phone] Joanen Parks PA-C [address] [place] [address] [place] [address] 09/02/2024 10:00 AM EST Nurse Only Nutrition & Weight Management, [facility] [address] [place] [address] [place], Nurse Gi Nutrition [facility] [address] [place] [address] 09/30/2024 11:00 AM EDT Office Visit Podiatry [facility] [address] [place] [address] Calli Avila, DPM [address] [place] [address] Scheduled Procedures Name Priority Associated Diagnoses Date/Ti [...] this encounter Medical Devices Implanted Type Area Safety Security Officer Device Identifier Shelf Expiration Date Model / Serial / Lot Coil Vortex 35 Pltinm [id number] - [id number] Implanted:Qty: 1 on 11/27/2021 by Sterling Cates MD at [place] [facility] Right: Upper Arm [employer] : NEURO INTR [id number] 08/15/2024 [id number] / / [id number] Coil Vortex 35 Pltinm [id number] - [id number] Implanted:Qty: 1 on 11/27/2021 by Sterling Cates MD at OR [facility] Right: Upper Arm [employer] : NEURO INTR [id number] 08/15/2024 [id number] / / [id number] Coil Vortex 35 Pltinm [id number] - [id number] Implanted:Qty: 1 on 11/27/2021 by Sterling Cates MD at OR [facility] Right: Upper Arm [employer] : NEURO INTR [id number] 08/15/2024 [id number] / / [id number] Coil Vortex 35 Pltinm [id number] - [id number] Implanted:Qty: 1 on 11/27/2021 by Sterling Cates MD at OR [facility] Right: Upper Arm [employer] : NEURO INTR [id number] 05/16/2024 [id number] / / [id number] Azur 35 Detachable 5mm 11cm - [id number] Implanted:Qty: 1 on 03/19/2022 by Jose Devine MD at OR [facility] Right: Wrist [employer] [id number] 10/18/2025 [id number] / / [id number] Azur 35 Detachable 5mm 11cm - [id number] Implanted:Qty: 1 on 03/19/2022 by Jose Devine MD at OR [facility] Right: Wrist [employer] [id number] 06/19/2026 [id number] / / [id number] Mesh Flat Sheet 10x14 [id number] - [id number] Implanted:Qty: 1 on 12/11/2022 by Eros Dash MD at OR [facility] N/A: Abdomen CR BARD : DAVOL [id number] 06/17/2027 [id number] / / [id number] documented as of this encounter Advance Directives Documents on File Type Date Recorded Patient Padder Cushion Expl anation POL 11/13/2020 POLST P[place]VA VALERIA [...] Finley Spouse Health Care Agent Care Teams Arborist Relationship Specialty Start Date End Date Luis Fernando Rojas MD PCP - General Family Medicine 09/23/16 documented as of this encounter
--- OUTSIDE RECORDS SUMMARY | 2024-10-05 05:37 | External Medical Summary | Summary of Care ---
Author Name Unknown Organization [facility] Address [address] [place] [address] Phone [phone] Care Team Providers Care Outcomes Specialist Name Role Phone Luis Fernando Rojas MD Primary Care Provider [phone] Encounter Details Date Type Department Care Team (Late st Contact Info) Description 07/15/2024 Telephone [facility], [facility] [address] [facility] [place] [address] Marco Antonio Kirkland MD [address] [facility] [place] [address] Allergies Active Allergy Reactions Criticality Noted Date [...] than 7.0% ([facility]) Inject 14 units with breakfast, [...] mouth in the morning. 03/23/20 24 Active Eventioz In Vitro Strip (Glucose Blood) To test blood sugar 4 times daily. 400 Strip 1 4 6:47 AM EDT 04/20/20 24 Active [employer] Delica Lancets 33G To test blood sugar 4 times daily. 400 Each 1 4 6:47 AM EDT 04/20/20 24 Active AdHackio w/Device Kit Use as directed. 1 Kit [...] 1,000 mcgIndications:S/P gastric bypass 1000 mcg IM [id number] 10/15/2022 07/19/2025 Active vitamin b-12 (Cyanocobalamin) inj 1,000 mcgIndications:Morbid obesity with BMI of 40.0-44.9, adult (HCC),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 [id number] 10/17/2023 12/11/19 25 Active documented as of [...] 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 10/15/2022 MORFIN RESEARCH OTHER*[id number] 01/01/2022 S/P gastric bypass 01/01/2022 Dialysis AV [...] Assessment & Plan (05/07/2021 11:01 AM EDT): [facility]. M-W-F from [...] T-tube placement 04/16/2017 05/29/2017 [employer] Other*[id number] 04/13/2013 08/27/2016 Overview (04/13/2013): Study Title: Genomic Markers for Patients with Cardiovascular Disease Project # [id number] Commissioning Engineer: Siena Laws MD [phone] Hypertensive heart disease 03/25/2013 1 07/29/2016 Neuropathy, [...] CG/0.3 mL, 12 YRS AND ABOVE, IM (CareFamily-Comirnaty) 06/02/2024 HEPATITIS B VACCINE, RECOMB, 20 MCG/ML, ADULT (HEPLISAV-B) 09/05/2021,05/09/2021,04/04/2021,02/18 Hepatitis B, 20+ yrs 09/16/2018,04/14/2018,03/1104/11/2018 Pneumococcal Conjugate Vacci ne, 20-valent (Clnbjab08) 06/22/2024,12/02/2023(Deferred: - pt states she's already received) [...] Author No 12/11/2022 6:51 PM EDT Rabia Wilye RN documented as of this encounter Mental [...] 07/15/2024 10:37 AM EST CXR ordered for [facility] CSHub. documented in this encounter Plan of Treatment Upcoming Encounters Date Type Department Care Team (Late st Contact Info) Description 07/16/2024 10:15 AM EST Scheduled Telephone [facility] [place], [facility] [address] [place] [address] Coordinator, [facility] [address] [place] [address] 07/16/2024 12:40 PM EST Office Visit General Internal Medicine [facility] [address] [facility] [address] Meena Hassan MD 200 [facility], [place] [address] 07/17/2024 11:30 AM EST Scheduled Telephone [facility] [address] [place] [address] Region, Nurse [facility] [address] [place] [address] 08/10/2024 8:00 AM EST Office Visit Gastroenterology, [facility] [address] [place] [address] Emi Queen CRNP [address] [place] [address] 08/10/2024 2:40 PM EST Office Visit Dermatology, [facility] [address] [phone] Joanne Parks PA-C [address] [place] [address] [place] [address] 08/19/2024 10:00 AM EST [facility] Visit [facility], [facility] 132 [facility] [place] [address] Heidi Garcia RN 132 [facility] [place] [address] 09/02/2024 10:00 AM EST Nurse Only Nutrition & Weight Management, [facility] 132 [facility] [place] [address] [facility], Nurse Gi Nutrition [facility] 132 [facility] [place] [address] 09/30/2024 11:00 AM EDT Office Visit Podiatry [facility] [address] [facility] [place] [address] Calli Avila DPM 132 [facility] [place] [address] Scheduled Procedures Name Priority Associated Diagnoses Date/Ti [...] this encounter Medical Devices Implanted Type Area Vet Assistant Device Identifier Shelf Expiration Date Model / Serial / Lot Coil Vortex 35 Pltinm [id number] - [id number] Implanted:Qty: 1 on 11/27/2021 by Sterling C[place] [facility] [place] Upper Arm [employer] : NEURO INTR [id number] 08/15/2024 [id number] / / [id number] Coil Vortex 35 Pltinm [id number] - [id number] Implanted:Qty: 1 on 11/27/2021 by Sterling Cates [place] [facility] [place] Upper Arm [employer] : NEURO INTR [id number] 08/15/2024 [id number] / / [id number] Coil Vortex 35 Pltinm [id number] - [id number] Implanted:Qty: 1 on 11/27/2021 by Sterling Cates [place] [facility] [place] Upper Arm [employer] : NEURO INTR [id number] 08/15/2024 [id number] / / [id number] Coil Vortex 35 Pltinm [id number] - [id number] Implanted:Qty: 1 on 11/27/2021 by Sterling Cates [place] [facility] [place] Upper Arm [employer] : NEURO INTR [id number] 05/16/2024 [id number] / / [id number] Azur 35 Detachable 5mm 11cm - [id number] Implanted:Qty: 1 on 03/19/2022 by Jose Devine [place] [facility] [place]: Wrist [employer] [id number] 10/18/2025 [id number] / / [id number] Azur 35 Detachable 5mm 11cm - [id number] Implanted:Qty: 1 on 03/19/2022 by Jose Devine [place] [facility] [place] Wrist [employer] [id number] 06/19/2026 [id number] / / [id number] Mesh Flat Sheet 10x14 [id number] - [id number] Implanted:Qty: 1 on 12/11/2022 by Eros Dash MD [place] [facility] [place]/A: Abdomen CR BARD : DAVOL [id number] 06/17/2027 [id number] / / [id number] documented as of this encounter Advance Directives Documents on File Type Date Recorded Patient Marker Machine Expl anation POLST 11/13/2020 POLST PENNSYLVA [...] Finley Spouse Health Care Agent Care Teams Outcomes Specialist Relationship Specialty Start Date End Date Luis Fernando Rojas MD PCP - General Family Medicine 09/23/16 documented as of this encounter
--- OUTSIDE RECORDS SUMMARY | 2024-10-05 05:37 | External Medical Summary | Summary of Care ---
Author Name Unknown Organization [facility] Address [address] [place] [address] Phone [phone] Care Team Providers Care Solid Waste Facility Supervisor Name Role Phone Luis Fernando Rojas MD Primary Care Provider [phone] Encounter Details Date Type Department Care Team (Late st Contact Info) Description 07/12/2024 Population Health External Data Unspecified Department Allergies [...] mouth in the morning. 03/23/20 24 Active Chartbeat In Vitro Strip (Glucose Blood) To test blood sugar 4 times daily. 400 Strip 1 4 6:47 AM EDT 04/20/20 24 Active [employer] Delica Lancets 33G To test blood sugar 4 times daily. 400 Each 1 4 6:47 AM EDT 04/20/20 24 Active Chartbeat w/Device Kit Use as directed. 1 Kit [...] morning. 16 g 1 06/22/20 24 Active Hospital, Clinic, or Other Facility Administered Medication Ordered Dose Route Frequency Start Date End Date Status vitamin b-12 (Cyanocobalamin) inj 1,000 mcgIndications:S/P gastric bypass 1000 mcg IM [id number] 10/15/2022 07/19/2025 Active vitamin b-12 (Cyanocobalamin) inj 1,000 mcgIndications:Morbid obesity with BMI of 40.0-44.9, adult (HCC),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 [id number] 10/17/2023 12/11/19 25 Active documented as of [...] 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 10/15/2022 MORFIN RESEARCH OTHER*[id number] 01/01/2022 S/P gastric bypass 01/01/2022 [address] [...] 8:45 AM EDT): Gabapentin 600 mg at [facility] Assessment & Plan (05/07/2021 11:11 AM EDT): [...] Insulin long-term use 11/19/20182018 Overview (05/20/2019): Duplicate prison (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 insulin 11/19/2018 [...] T-tube placement 04/16/2017 05/29/2017 [employer] Other*[id number] 04/13/2013 08/27/2016 Overview (04/13/2013): Study Title: Genomic Markers for Patients with Cardiovascular Disease Project # [id number] Roller Machine Operator: Siena Laws MD [phone] Hypertensive heart disease 03/25/2013 1 07/29/2016 Neuropathy, [...] yrs 09/16/2018,04/14/2018,03/1104/11/2018 Pneumococcal Conjugate Vacci ne, 20-valent (Rskcesw28) 06/22/2024,12/02/2023(Deferred: - pt states she's already received) [...] Entry Date Author No 12/11/2022 6:51 PM EDRabia Owens RN documented in this encounter Plan of Treatment Upcoming Encounters Date Type Department Care Team (Late st Contact Info) Description 08/10/2024 8:00 AM EST Office Visit Gastroenterology, [facility] [address] [facility] [place] [address] Emi Queen CRNP 132 [facility] [place] [address] 08/10/2024 2:40 PM EST Office Visit Dermatology, [facility] [address] [facility] [phone] Joanne Parks PA-C [address] [place] [address] [place] [address] 09/02/2024 10:00 AM EST Nurse Only Nutrition & Weight Management, [facility] [address] [facility] [place] [address] [facility], Nurse Gi Nutrition [facility] 132 [facility] [place] [address] 09/30/2024 11:00 AM EDT Office Visit Podiatry [facility] [address] [facility] [place] [address] Calli Avila DPM 132 [facility] [place] [address] Scheduled Procedures Name Priority Associated Diagnoses Date/Ti [...] this encounter Medical Devices Implanted Type Area Float Builder Device Identifier Shelf Expiration Date Model / Serial / Lot Coil Vortex 35 Pltinm [id number] - [id number] Implanted:Qty: 1 on 11/27/2021 [place] Sterling C[place] [facility] [place]: Upper Arm [employer] : NEURO INTR [id number] 08/15/2024 [id number] / / [id number] Coil Vortex 35 Pltinm [id number] - [id number] Implanted:Qty: 1 on 11/27/2021 by Sterling Catse MD [place] [facility] [place]: Upper Arm [employer] : NEURO INTR [id number] 08/15/2024 [id number] / / [id number] Coil Vortex 35 Pltinm [id number] - [id number] Implanted:Qty: 1 on 11/27/2021 by Sterling Cates MD [place] [facility] [place]: Upper Arm [employer] : NEURO INTR [id number] 08/15/2024 [id number] / / [id number] Coil Vortex 35 Pltinm [id number] - [id number] Implanted:Qty: 1 on 11/27/2021 by Sterling Cates MD [place] [facility] [place]: Upper Arm [employer] : NEURO INTR [id number] 05/16/2024 [id number] / / [id number] Azur 35 Detachable 5mm 11cm - [id number] Implanted:Qty: 1 on 03/19/2022 by Jose Devine MD [place] [facility] [place]: Wrist [employer] [id number] 10/18/2025 [id number] / / [id number] Azur 35 Detachable 5mm 11cm - [id number] Implanted:Qty: 1 on 03/19/2022 by Jose Devine MD [place] [facility] [place]: Wrist [employer] [id number] 06/19/2026 [id number] / / [id number] Mesh Flat Sheet 10x14 [id number] - [id number] Implanted:Qty: 1 on 12/11/2022 by Eros Dash MD [place] [facility] [place] N/A: Abdomen CR BARD : DAVOL [id number] 06/17/2027 [id number] / / [id number] documented as of this encounter Advance Directives Documents on File Type Date Recorded Patient Cutter Finisher Expl anation POLST 11/13/2020 POLST PENNSYLVA VALERIA [...] Spouse Health Care Agent Care Teams Solid Waste Facility Supervisor Relationship Specialty Start Date End Date Luis Fernando Rojas MD PCP - General Family Medicine 09/23/16 documented as of this encounter
--- OUTSIDE RECORDS SUMMARY | 2024-10-05 05:37 | External Medical Summary | Summary of Care ---
Author Name Unknown Organization [facility] Address [address] [place] [address] Phone [phone] Care Team Providers Care Co Founder And Chairman Name Role Phone Luis Fernando Rojas MD Primary Care Provider [phone] Encounter Details Date Type Department Care Team (Late st Contact Info) Description 07/15/2024 Orders Only [facility], [facility] [address] [facility] [place] [address] Marco Antonio Kirkland MD [address] [facility] [place] [address] OLSON (dyspnea on exertion)* Allergies Active Allergy Reactions Criticality Noted Date [...] of less than 7.0% ([facility]) Inject 14 units with breakfast, 4 [...] mouth in the morning. 03/23/20 24 Active mNectar In Vitro Strip (Glucose Blood) To test blood sugar 4 times daily. 400 Strip 1 4 6:47 AM EDT 04/20/20 24 Active DaqiTouch Delica Lancets 33G To test blood sugar 4 times daily. 400 Each 1 4 6:47 AM EDT 04/20/20 24 Active DaqiToSomno[employer] Verio w/Device Kit Use as directed. 1 [...] 1,000 mcgIndications:S/P gastric bypass 1000 mcg IM [id number] 10/15/2022 07/19/2025 Active vitamin b-12 (Cyanocobalamin) inj 1,000 mcgIndications:Morbid obesity with BMI of 40.0-44.9, adult (HCC),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 [id number] 10/17/2023 12/11/19 25 Active documented as of [...] 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 10/15/2022 MORFIN RESEARCH OTHER*[id number] 01/01/2022 S/P gastric bypass 01/01/2022 Dialysis AV [...] Assessment & Plan (05/07/2021 11:01 AM EDT[facility] Renae-W-Briana from [...] Insulin long-term use 11/19/20182018 Overview (05/20/2019): Duplicate rodent exterminator (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 insulin 11/19/2018 10/08/2022 [...] T-tube placement 04/16/2017 05/29/2017 [employer] Other*[id number] 04/13/2013 08/27/2016 Overview (04/13/2013): Study Title: Genomic Markers for Patients with Cardiovascular Disease Project # [id number] Splitter Hand: Siena Laws MD [phone] Hypertensive heart disease 03/25/2013 1 07/29/2016 Neuropathy, [...] yrs 09/16/2018,04/14/2018,03/1104/11/2018 Pneumococcal Conjugate Vacci ne, 20-valent (Kbqzihy48) 06/22/2024,12/02/2023(Deferred: - pt states she's already received) [...] Rabia Wiley RN documented in this encounter Progress Notes * Marco Antonio Kirkland MD - 07/15/2024 10:34 AM EST RNCM CLIFFORD visit but s/s of URI. CXR ordered to rule out PNA. Plan XR Chest 2 Views documented in this encounter Plan of Treatment Upcoming Encounters Date Type Department Care Team (Late st Contact Info) Description 07/16/2024 10:15 AM EST Scheduled Telephone [facility], [place] [address] [address] [place] [address] Coordinator, [facility] [address] [place] [address] 07/16/2024 12:40 PM EST Office Visit General Internal Medicine [facility] [address] Meena Hassan MD 200 [facility] [address] 07/17/2024 11:30 AM EST Scheduled Telephone [facility] [place], [facility] [address] [place] [address] Region, Nurse [place] [address] [place] [address] 08/10/2024 8:00 AM EST Office Visit Gastroenterology, [facility] [address] [place] [address] Emi Queen CRNP [facility] [place] [address] 08/10/2024 2:40 PM EST Office Visit Dermatology, [facility] [address], [place] [phone] Joanne Parks PA-C [address] [place] [address] [place] [address] 08/19/2024 10:00 AM EST Home Visit [facility], [facility] 132 [facility] [place] [address] Heidi Garcia RN 132 [facility] [place] [address] 09/02/2024 10:00 AM EST Nurse Only Nutrition & Weight Management, [facility] 132 [facility] [place] [address] [facility], Nurse Gi Nutrition [facility] 132 [facility] [place] [address] 09/30/2024 11:00 AM EDT Office Visit Podiatry [facility] 132 [facility] [place] [address] Calli Avila DPM 132 [facility] [place] [address] Scheduled Orders Name Type Priority Associated Diagnoses Orde r Schedule XR CHEST 2 VIEWS Medical Imaging Routine OLSON (dyspnea on exertion) Ordered: 07/15/2024 Scheduled Procedures Name Priority Associated Diagnoses Date/Ti [...] this encounter Medical Devices Implanted Type Area Court Of Appeals Judge Device Identifier Shelf Expiration Date Model / Serial / Lot Coil Vortex 35 Pltinm [id number] - [id number] Implanted:Qty: 1 on 11/27/2021 by Sterling Cates MD at [place] [facility] [place] Right: Upper Arm [employer] : NEURO INTR [id number] 08/15/2024 [id number] / / [id number] Coil Vortex 35 Pltinm [id number] - [id number] Implanted:Qty: 1 on 11/27/2021 by Sterling Cates MD at [place] [facility] [place] Right: Upper Arm [employer] : NEURO INTR [id number] 08/15/2024 [id number] / / [id number] Coil Vortex 35 Pltinm [id number] - [id number] Implanted:Qty: 1 on 11/27/2021 by Sterling Cates MD at [place] [facility] [place] Right: Upper Arm [employer] : NEURO INTR [id number] 08/15/2024 [id number] / / [id number] Coil Vortex 35 Pltinm [id number] - [id number] Implanted:Qty: 1 on 11/27/2021 by Sterling Cates MD at [place] [facility] [place] Right: Upper Arm [employer] : NEURO INTR [id number] 05/16/2024 [id number] / / [id number] Azur 35 Detachable 5mm 11cm - [id number] Implanted:Qty: 1 on 03/19/2022 by Jose Devine MD at [place] [facility] [place] Right: Wrist [employer] [id number] 10/18/2025 [id number] / / [id number] Azur 35 Detachable 5mm 11cm - [id number] Implanted:Qty: 1 on 03/19/2022 by Jose Devine MD at [place] [facility] [place] Right: Wrist [employer] [id number] 06/19/2026 [id number] / / [id number] Mesh Flat Sheet 10x14 [id number] - [id number] Implanted:Qty: 1 on 12/11/2022 by Eros Dash MD at [place] [facility] [place] N/A: Abdomen CR BARD : DAVOL [id number] 06/17/2027 [id number] / / [id number] documented as of this encounter Visit Diagnoses Diagnosis Marginal ulcer- Primary Gastrojejunal ulcer, unspecified as acute or chronic, without mention of hemorrhage, perforation, or obstruction ESRD (end stage renal disease) on dialysis ([facility]) End stage renal disease Hypertensive 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 congestive heart failure and stage 5 chronic kidney disease on chronic dialysis ([facility]) Acute posthemorrhagic anemia Type 2 diabetes mellitus 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 dialysis, with long-term current use of insulin ([facility]) Hypothyroidism (acquired) Unspecified hypothyroidism Malignant melanoma of right upper extremity ([facility]) Aortic atherosclerosis ([facility]) Atherosclerosis of aorta Diabetic polyneuropathy associated with type 2 diabetes mellitus ([facility]) Advanced care planning/counseling discussion- Primary Other specified counseling Hypertensive 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 congestive heart failure and stage 5 chronic kidney disease on chronic dialysis ([facility]) Presence of cardiac pacemaker Cardiac pacemaker in situ SSS (sick sinus syndrome) ([facility]) Sinoatrial node dysfunction MINISTERIO on CPAP Obstructive sleep apnea (adult) (pediatric) Hypothyroidism (acquired) Unspecified hypothyroidism Type 2 diabetes mellitus 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 dialysis, with long-term current use of insulin ([facility]) S/P gastric bypass Bariatric surgery status ESRD (end stage renal disease) on dialysis ([facility]) End stage renal disease Recurrent ventral incisional hernia Incisional hernia without mention of obstruction or gangrene NO SHOW/FAILED TO KEEP APPOINTMENT- Primary Chronic diastolic heart failure ([facility])- Primary Chronic diastolic heart failure HTN, goal below 140/90 Unspecified essential hypertension Type 2 diabetes mellitus with hemoglobin A1c goal of less than 7.0% ([facility]) Hypothyroidism (acquired) Unspecified hypothyroidism Dyslipidemia, goal LDL below 100 Other and unspecified hyperlipidemia Major depressive disorder, single episode, moderate ([facility]) Major depressive disorder, single episode, moderate 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, with long-term current use of insulin ([facility]) Hyperparathyroidism, secondary renal ([facility]) Secondary hyperparathyroidism (of renal origin) End stage renal disease on dialysis ([facility]) End stage renal disease MINISTERIO on CPAP Obstructive sleep apnea (adult) (pediatric) Diarrhea, unspecified type OLSON (dyspnea on exertion)- Primary Other dyspnea and respiratory abnormality documented in this encounter Advance Directives Documents on File Type Date Recorded Patient Pediatric Allergist Expl anation POLST 11/13/2020 POLST NASREEN SHAW [...] Finley Spouse Health Care Agent Care Teams Co Founder And Chairman Relationship Specialty Start Date End Date Luis Fernando Rojas MD PCP - General Family Medicine 09/23/16 documented as of this encounter
--- OUTSIDE RECORDS SUMMARY | 2024-10-05 05:37 | External Medical Summary | Summary of Care ---
Author Name Unknown Organization [facility] Address [address] [place] [address] Phone [phone] Care Team Providers Care Bass String Winder Name Role Phone Luis Fernando Rojas MD Primary Care Provider [phone] Encounter Details Date Type Department Care Team (Late st Contact Info) Description 07/15/2024 Orders Only [facility], [facility] [address] [facility] [place] [address] Marco Antonio Kirkland MD [address] [facility] [place] [address] Allergies Active Allergy Reactions Criticality Noted Date [...] mouth in the morning. 03/23/20 24 Active [employer] In Vitro Strip (Glucose Blood) To test blood sugar 4 times daily. 400 Strip 1 4 6:47 AM EDT 04/20/20 24 Active [employer] Delica Lancets 33G To test blood sugar 4 times daily. 400 Each 1 4 6:47 AM EDT 04/20/20 24 Active [employer] w/Device Kit Use as directed. 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 10/15/2022 [facility] [employer] OTHER*[id number] 01/01/2022 S/P gastric bypass 01/01/[address] [...] 8:45 AM EDT): Gabapentin 600 mg at [facility] Assessment & Plan (05/07/2021 11:11 [...] T-tube placement 04/16/2017 05/29/2017 [employer] Other*[id number] 04/13/2013 08/27/2016 Overview (04/13/2013): Study Title: Genomic Markers for Patients with Cardiovascular Disease Project # [id number] Office Cashier: Siena Laws MD [phone] Hypertensive heart disease 03/25/2013 1 07/29/2016 Neuropathy, [...] yrs 09/16/2018,04/14/2018,03/1104/11/2018 Pneumococcal Conjugate Vacci ne, 20-valent ([id number]) 06/22/2024,12/02/2023(Deferred: - pt states she's already received) [...] No 08/14/2023 Does the household have a [facility] source of income? (Household - for [...] 10:15 AM EST Scheduled Telephone [facility] at [place] [address] [address] [address] Coordinator, [facility] [address] [place] [address] 07/16/2024 12:40 PM EST Office Visit General Internal Medicine [facility] [address] [place] [address] Meena Hassan MD 200 [facility] [place] [address] 07/17/2024 11:30 AM EST Scheduled Telephone [facility] at [facility] [address] [place] [address] Region, Nurse [place] [address] [place] [address] 08/10/2024 8:00 AM EST Office Visit Gastroenterology, [facility] [address] [address] Emi Queen CRNP [address] [facility] [place] [address] 08/10/2024 2:40 PM EST Office Visit Dermatology, [place] Krishna [address] [place] [phone] Joanne Parks PA-C [address] [place] [address] [place] [address] 08/19/2024 10:00 AM EST Home Visit [facility], [facility] 132 [facility] [place] [address] Heidi Garcia RN 132 [facility] [place] [address] 09/02/2024 10:00 AM EST Nurse Only Nutrition & Weight Management, [facility] 132 [facility] [place] [address] [facility], Nurse Gi Nutrition [facility] 132 [facility] [place] [address] 09/30/2024 11:00 AM EDT Office Visit Podiatry [facility] [address] [facility] [place] [address] Calli Avila DPM 132 [facility] [place] [address] Scheduled Procedures Name Priority Associated Diagnoses Date/Ti [...] this encounter Medical Devices Implanted Type Area Decorating Machine Tender Device Identifier Shelf Expiration Date Model / Serial / Lot Coil Vortex 35 Pltinm [id number] - [id number] Implanted:Qty: 1 on 11/27/2021 by Sterling Cates MD at OR [facility] Right: Upper Arm [employer] : NEURO INTR [id number] 08/15/2024 [id number] / / [id number] Coil Vortex 35 Pltinm [id number] - [id number] Implanted:Qty: 1 on 11/27/2021 by Sterling Cates MD at OR [facility] Right: Upper Arm [employer] : NEURO INTR [id number] 08/15/2024 [id number] / / [id number] Coil Vortex 35 Pltinm [id number] - [id number] Implanted:Qty: 1 on 11/27/2021 by Sterling Cates MD at OR [facility] Right: Upper Arm [employer] : NEURO INTR [id number] 08/15/2024 [id number] / / [id number] Coil Vortex 35 Pltinm [id number] - [id number] Implanted:Qty: 1 on 11/27/2021 by Sterling Cates MD at OR [facility] Right: Upper Arm [employer] : NEURO INTR [id number] 05/16/2024 [id number] / / [id number] Azur 35 Detachable 5mm 11cm - [id number] Implanted:Qty: 1 on 03/19/2022 by Jose Devine MD at OR [facility] Right: Wrist [employer] [id number] 10/18/2025 [id number] / / [id number] Azur 35 Detachable 5mm 11cm - [id number] Implanted:Qty: 1 on 03/19/2022 by Jose Devine MD at OR [facility] Right: Wrist [employer] [id number] 06/19/2026 [id number] / / [id number] Mesh Flat Sheet 10x14 [id number] - [id number] Implanted:Qty: 1 on 12/11/2022 by Eros Dash MD at OR [facility] N/A: Abdomen CR BARD : DAVOL [id number] 06/17/2027 [id number] / / [id number] documented as of this encounter Advance Directives Documents on File Type Date Recorded Patient Marketing Strategist Expl anation POLST 11/13/2020 POLST PEN[place]VA VALERIA [...] Finley Spouse Health Care Agent Care Teams Bass String Winder Relationship Specialty Start Date End Date Luis Fernando Rojas MD PCP - General Family Medicine 09/23/16 documented as of this encounter
--- OUTSIDE RECORDS SUMMARY | 2024-10-05 05:37 | External Medical Summary | Summary of Care ---
Author Name Unknown Organization [facility] Address [address] [place] [address] Phone [phone] Care Team Providers Care Pyrotechnic Mixer Name Role Phone Luis Fernando Rojas MD Primary Care Provider [phone] Encounter Details Date Type Department Care Team (Late st Contact Info) Description 07/15/2024 Orders Only [facility], [facility] [address] [facility] [place] [address] Marco Antonio Kirkland MD [address] [facility] [place] [address] Allergies Active Allergy Reactions Criticality Noted Date [...] mouth in the morning. 03/23/20 24 Active [employer] In Vitro Strip (Glucose Blood) To test blood sugar 4 times daily. 400 Strip 1 4 6:47 AM EDT 04/20/20 24 Active [employer] Delica Lancets 33G To test blood sugar 4 times daily. 400 Each 1 4 6:47 AM EDT 04/20/20 24 Active [employer] w/Device Kit Use as directed. 1 Kit [...] for Cough. 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 [id number] 10/17/2023 12/11/19 25 Active documented as of [...] 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 10/15/2022 [facility] OTHER*[id number] 01/01/2022 S/P gastric bypass 01/01/[address] [...] AM EDT): Gabapentin 600 mg at [facility] Assessment & Plan (05/07/2021 11:11 [...] Insulin long-term use 11/19/20182018 Overview (05/20/2019): Duplicate continuous churn buttermaker (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 [...] T-tube placement 04/16/2017 05/29/2017 [employer] Other*[id number] 04/13/2013 08/27/2016 Overview (04/13/2013): Study Title: Genomic Markers for Patients with Cardiovascular Disease Project # [id number] Service Consultant: Siena Laws MD [phone] Hypertensive heart disease 03/25/2013 1 07/29/2016 Neuropathy, [...] yrs 09/16/2018,04/14/2018,03/1104/11/2018 Pneumococcal Conjugate Vacci ne, 20-valent ([id number]) 06/22/2024,12/02/2023(Deferred: - pt states she's already received) [...] 12/11/2022 6:51 PM EDRabia Owens RN * Because of a physical, mental, [...] 10:15 AM EST Scheduled Telephone [facility] [address] [place] [address] Coordinator, [place] [address] [facility] [place] [address] 07/16/2024 12:40 PM EST Office Visit General Internal Medicine [facility] [address] [facility] [place] [address] Meena Hassan MD 200 [facility] [place] [address] 07/17/2024 11:30 AM EST Scheduled Telephone [facility] [address] [place] [address] Region, Nurse [place] [address] [address] [place] [address] 08/10/2024 8:00 AM EST Office Visit Gastroenterology, [facility] [address] [place] [address] Emi Queen CRNP [address] [place] [address] 08/10/2024 2:40 PM EST Office Visit Dermatology, [place] Addison [address] [facility] [facility] [place] [phone] Joanne Parks PA-C [address] [place] [address] [place] [address] 08/19/2024 10:00 AM EST Home Visit [facility], [facility] [address] [facility] [place] [address] Heidi Garcia, RN 132 [facility] [place] [address] 09/02/2024 10:00 AM EST Nurse Only Nutrition & Weight Management, [facility] [address] [facility] [place] [address] [facility], Nurse Gi Nutrition [facility] 132 [facility] [place] [address] 09/30/2024 11:00 AM EDT Office Visit Podiatry [facility] [address] [facility] [place] [address] Calli Avila DPM 132 [facility] [place] [address] Scheduled Procedures Name Priority Associated Diagnoses Date/Ti [...] this encounter Medical Devices Implanted Type Area Scooper Device Identifier Shelf Expiration Date Model / Serial / Lot Coil Vortex 35 Pltinm [id number] - [id number] Implanted:Qty: 1 on 11/27/2021 by Sterling Cates MD at OR [facility] [place] Right: Upper Arm [employer] : NEURO INTR [id number] 08/15/2024 [id number] Coil Vortex 35 Pltinm [id number] - [id number] Implanted:Qty: 1 on 11/27/2021 by Sterling Cates MD at OR [facility] [place] Right: Upper Arm [employer] : NEURO INTR [id number] 08/15/2024 [id number] / / [id number] Coil Vortex 35 Pltinm [id number] - [id number] Implanted:Qty: 1 on 11/27/2021 by Sterling Cates MD at OR [facility] [place] Right: Upper Arm [employer] : NEURO INTR [id number] 08/15/2024 [id number] / / [id number] Coil Vortex 35 Pltinm [id number] - [id number] Implanted:Qty: 1 on 11/27/2021 by Sterling Cates MD at OR [facility] [place] Right: Upper Arm [employer] : NEURO INTR [id number] 05/16/2024 [id number] / / [id number] Azur 35 Detachable 5mm 11cm - [id number] Implanted:Qty: 1 on 03/19/2022 by Jose Devine MD at OR [facility] [place] Right: Wrist [employer] [id number] 10/18/2025 [id number] / / [id number] Azur 35 Detachable 5mm 11cm - [id number] Implanted:Qty: 1 on 03/19/2022 by Jose Devine MD at OR [facility] [place] Right: Wrist [employer] [id number] 06/19/2026 [id number] / / [id number] Mesh Flat Sheet 10x14 [id number] - [id number] Implanted:Qty: 1 on 12/11/2022 by Eros Dash MD at OR [facility] [place] N/A: Abdomen CR BARD : DAVOL [id number] 06/17/2027 [id number] / / [id number] documented as of this encounter Advance Directives Documents on File Type Date Recorded Patient Abap Developer Expl anation POLST 11/13/2020 POLST PENNSYLVA [...] Agents on File Name Relationship Healthcare Agent [facility] p Communication Zhen Finley Spouse Health Care Agent Care Teams Pyrotechnic Mixer Relationship Specialty Start Date End Date Luis Fernando Rojas MD PCP - General Family Medicine 09/23/16 documented as of this encounter
[2024-10-05] MEDS: HEPARIN SOD 5,000 UNIT/0.5 ML VIAL SQ SCH (05:57)
[2024-10-05] MEDS: INSULIN ASPART PER UNIT CHARGE SC SCH (05:57)
[2024-10-05] MEDS: LEVOTHYROXINE SODIUM 100 MCG TABLET PO SCH (07:07)
--- OUTSIDE RECORDS SUMMARY | 2024-10-05 08:11 | External Medical Summary | Summary of Care ---
Author Name Unknown Organization [facility] Address [address] [place] [address] Phone [phone] Care Team Providers Care Health Outcomes Liaison Name Role Phone Luis Fernando Rojas MD Primary Care Provider Reason for Visit * Reason Onset Date Comments [facility]: Acute 10/04/2024 Encounter Details Date Type Department Care Team (Late st Contact Info) Description 10/04/2024 Telephone [facility], [facility] [place] [facility] [address] [facility] [place] [id number] Vilma Liu, JOHN [address] [facility] [place] [id number] [facility]: Acute Allergies Active Allergy Reactions Criticality Noted Date Comments Salvador Inhibitors Other (Please comment),Cough High HyperKalemia documented as of this encounter (statuses as of 10/05/2024) Medications Melatonin 10 MG Tablet Take 12 [...] 4 08/21/2024 8:06 AM EST 4 Active WantworthyTouch Verio In Vitro Strip (Glucose Blood) To test blood sugar 4 times daily. 400 Strip 1 04/22/2024 6:47 AM EDT 4 Active OneTouch Delica Lancets 33G To test blood sugar 4 times daily. 400 Each 1 04/22/2024 6:47 AM EDT 4 Active WantworthyTouch Verio w/Device Kit Use as directed. 1 [...] less than 7.0% ([facility]) Inject 10 Units under the skin in the morning. 15 mL 4 5 Active Losartan Potassium 50 MG Oral Tablet (Cozaar)Indicati ons:End stage renal disease on dialysis ([facility]),HTN, goal below 140/90 Take 1 Tablet by mouth in the morning. 90 Tablet 3 5 Active Insulin Lispro (1 Unit Dial) 100 UNIT/ML Subcutaneous Solution Pen-injector (HumaLOG KwikPen)Indicati ons:Type 2 diabetes mellitus with hemoglobin A1c goal of less than 7.0% ([facility]) Inject 12 units with breakfast, 12 units with lunch and 16 units with supper. 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 Mag[facility]anes. M-W-F from [...] as of this encounter (statuses as of 10/05/2024) Resolved Problems Problem Noted Date Diagnosed Date [...] T-tube placement 04/16/2017 05/29/2017 [employer] Other*[id number] 04/13/2013 08/27/2016 Overview (04/13/2013): Study Title: Genomic Markers for Patients with Cardiovascular Disease Project # [id number] Veneer Jointer Returner: Siena Laws MD [phone] Hypertensive heart disease 03/25/2013 1 07/29/2016 Neuropathy, [...] as of this encounter (statuses as of 10/05/2024) Immunizations Name Administration Dates Next Due COVID-19 mRNA, LNP-s, No Pre serve, 2-Dose Series (Moderna) 04/09/2021,09/23/2020,08/19/2020 COVID-19, LNP-s, No Preserve , Espinoza-sucrose, Ages 12+ (Pfizer) 01/08/2022 COVID-19, MRNA-LNP, PF, 30 M CG/0.3 mL, 12 YRS AND ABOVE, IM (PFIZER-Comirnaty) 06/02/2024 HEPATITIS B VACCINE, RECOMB, 20 MCG/ML, ADULT (HEPLISAV-B) 09/05/2021,05/09/2021,04/04/2021,02/18 Hepatitis B, 20+ yrs 09/16/2018,04/14/2018,03/1104/11/2018 Pneumococcal Conjugate Vacci ne, 20-valent ([id number]) 06/22/2024,12/02/2023(Deferred: - pt states she's already received) [...] No 08/14/2023 Does the household have a tub[employer] [facility] regional health care corporation[employer] source of income? (Household - for ages [...] Telephone Encounter - Vilma Liu RN - 10/04/2024 6:14 PM EDT Phone call to patient to make her aware of [facility] recommendations and review of chart. Reports still feeling dizzy and having spots in her eyes. May go to urgent care to be evaluated. Follow up call tomorrow. CODI Cruz Registered Nurse Navigator Triage [facility] * Telephone Encounter - Sterling Camp DO - 10/04/2024 6:10 PM EDT [facility] Remote [facility] Command Note Recommendations: Reviewed patient's chart along with her hemodialysis note from today. See pasted information from note below: "- Patient is stable - High weight gain noted - High blood pressure noted. - Medications and labs reviewed. Patient issues include: has been more SOB than usual--could be worsened anemia !! but will do ECHO if she still has it for another week or two. Does have higher IDWG lately. She did see Nutrition clinic and was started on Wellbutrin for food craving. Chest Clear. trace edema. AVF works fine and does need fistulogram at times--had one recently. Lesions in her fingers are normal so not a case of Ischemic Ulcers and no clear Dx either. 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 Appetite is fine and no cramp now. May have to raise edw if we are not able to get down to her EDW by Friday " At this time I would not recommend anything new for the patient. I did communicate to our intake team to relay that message to the patient and that I would did review the patient's Nephrology note and it sounds like there is a clear plan in place. Agree with added phone call tomorrow Orders: No orders of the defined types were placed in this encounter. To Do: Please see below for follow up items to be completed and correspondence: DARON to Candi's Care Team petroleum terminal plant operator Pool please work on the following: contact the caller with advice and orders as above Sterling Camp, Remote Medical Command - [facility] 10/04/2024 Scheduled appointments in the next 60 days: Future Appointments-next 60 days Date/Time Provider Specialty Dept Phone 10/05/2024 9:00 AM (Arrive by 8:45 AM) Calli Avila DPM Podiatry [phone] 10/14/2024 11:40 AM [facility] Arrive at: Patient's Home [phone] 11/02/2024 9:30 AM Heidi Garcia RN [facility] [phone] 11/25/2024 10:00 AM (Arrive by 9:45 AM) [facility] [phone] 11/30/2024 10:00 AM (Arrive by 9:45 AM) Nurse Brianna Fletcher Nutrition [facility] [phone] 12/21/2024 10:30 AM (Arrive by 10:15 AM) Emi Queen CRNP Gastroenterology [phone] 03/10/2025 1:20 PM (Arrive by 1:05 PM) Joanne Parks PA-C Dermatology [phone] The above documentation was completed using the voice recognition dictation program Fluency Direct.As such, there may be misspellings, word substitutions, or other variations that should not change the essence of the clinical content of this encounter note. If there are questions, concerns or needfor further clarification, please contact me. Thank you. * Telephone Encounter - Vilma Liu RN - 10/04/2024 5:53 PM EDT [facility] petroleum terminal plant operator Acute Call Date: 10/04/2024 Time: 5:53 PM Name: Candi Finley : 1960 Caller: Candi Relationship to No chief complaint on file. HPI: Candi Finley is a 63 year old old female that is calling [facility] to report thatshe had a fainting spell when she was in her bed. Reports this is the 5th time this happened to herin the past 6 weeks, said she cannot live like this. Having increased weakness, denies any fall today, having increased SOB, pulse ox was 90% on RA, HR-82, some wheezing this afternoon, has dry cough, no headache, no CP, no fever/chills, no pain, has dizziness, has severe diarrhea for the past 3 days, no nausea/vomiting, no sore throat, is eating and drinking, does not urinate much, does dialysisand happened after dialysis. Complaint with all of her medications. Said her RBC count was very low by her dialysis. BS was 129 at 3pm Nursing Assessment: Patient's chief complaint for this call: Other, describe fainting spell today Pain Denies pain Baseline Assessment Able to performing ADLs at baseline (walking, daily tasks, etc.): Yes Chief Complaint is related to a chronic condition: Unknown Patient prescribed oxygen? No Patient has been ordered DME equipment (assistive devices, respiratory equipment, etc.): Unknown Medication Reconciliation: (See medication list) Received flu shot this season: Yes Taking medication as ordered: Yes Medications ordered/taking to treat reason for call: No Heart failure symptoms: Unknown COPD exacerbation symptoms: No Reinforcement Education: Routed to care team for recommendations Treatment/Plan: Level of call: Acute Appointment scheduled for same day: No Provider Name: TBD by [facility] Call back instructions provided to patient. CODI Cruz Registered Nurse Navigator Triage [facility] documented in this encounter Plan of Treatment Upcoming Encounters Date Type Department Care Team (Late st Contact Info) Description 10/05/2024 10:00 AM EDT Scheduled Telephone [facility], [facility] [address] [facility] [place] [address] [facility], [facility] [address] [facility] [place] [address] 10/14/2024 11:40 AM EDT [facility]icine Pharmacy[address] [phone] [address] [address] 11/02/2024 9:30 AM EDT Home Visit [facility], [facility] [address] [facility] [place] [address] Heidi Garcia RN [address] [facility] [place] [address] 11/25/2024 10:00 AM EDT Imaging Radiology [facility] [address] [facility] [place] [phone] 11/30/2024 10:00 AM EDT Nurse Only Nutrition & Weight Management, [facility] [address] [place] [phone] Nurse Brianna Fletcher Nutrition [facility] [address] [facility] [place] [address] 12/09/2024 12:15 PM EDT Hospital Encounter OR [facility], Operating Room, [facility] - 4th Floor [address] [place] [phone] Himanshu Rivero, DO [address] [place] [address] 12/09/2024 12:15 PM EDT - 12/09/2024 12:56 PM EDT Surgery OR [facility], Operating Room, [facility] - 4th Floor [address] [place] [phone] Himanshu Rivero, DO [address] [place] [address] COLONOSCOPY FLEXIBLE PROXIMAL DIAGNOSTIC 12/21/2024 10:30 AM EDT Office Visit Gastroenterology, [facility] [address] [place] [address] Emi Queen CRNP [address] [place] [address] 03/10/2025 1:20 PM EDT Office Visit [facility] [address] [place] [phone] Joanne Parks PA-C [address] [place] [address] [place] [address] Scheduled Procedures Name Priority Associated Diagnoses Date/Ti [...] this encounter Medical Devices Implanted Type Area Clearance Coordinator Device Identifier Shelf Expiration Date Model / Serial / Lot Coil Vortex 35 Pltinm [id number] - [id number] Implanted:Qty: 1 on 11/27/2021 by Sterling Cates MD at [place] [facility] Right: Upper Arm [employer] : NEURO INTR [id number] 08/15/2024 [id number] / / [id number] Coil Vortex 35 Pltinm [id number] - [id number] Implanted:Qty: 1 on 11/27/2021 by Sterling Cates MD at [place] [facility] Right: Upper Arm [employer] : NEURO INTR [id number] 08/15/2024 [id number] / / [id number] Coil Vortex 35 Pltinm [id number] - [id number] Implanted:Qty: 1 on 11/27/2021 by Sterling Cates MD at [place] [facility] [place] Right: Upper Arm [employer] : NEURO INTR [id number] 08/15/2024 [id number] / / [id number] Coil Vortex 35 Pltinm [id number] - [id number] Implanted:Qty: 1 on 11/27/2021 by Sterling Cates MD at [place] [facility] [place] Right: Upper Arm [employer] : NEURO INTR [id number] 05/16/2024 [id number] / / [id number] Azur 35 Detachable 5mm 11cm - [id number] Implanted:Qty: 1 on 03/19/2022 by Jose Devine MD at [place] [facility] [place] Right: Wrist [employer] [id number] 10/18/2025 [id number] / / [id number] Azur 35 Detachable 5mm 11cm - [id number] Implanted:Qty: 1 on 03/19/2022 by Jose Devine MD at [place] [facility] [place] Right: Wrist [employer] [id number] 06/19/2026 [id number] / / [id number] Mesh Flat Sheet 10x14 [id number] - [id number] Implanted:Qty: 1 on 12/11/2022 by Eros Dash MD at [place] [facility] [place] N/A: Abdomen CR BARD : DAVOL [id number] 06/17/2027 [id number] / / [id number] documented as of this encounter Advance Directives Documents on File Type Date Recorded Patient Occupational Psychologist Saranya FIGUEROA 11/13/2020 [facility] [...] on File Name Relationship Healthcare Agent [facility] Communication Zhen Finley Spouse Health Care Agent Care Teams Health Outcomes Liaison Relationship Specialty Start Date End Date Luis Fernando Rojas MD [address] [place] [address] PCP - General Family Medicine 09/23/16 documented as of this encounter
[2024-10-05] MEDS ORDERED: NON-FORMULARY MEDICATION (Biotin 10 mg Tablet) PO SCH (09:00)
[2024-10-05] MEDS: LANTUS PER UNIT CHARGE SQ SCH (09:23)
[2024-10-05] MEDS: NEPHROCAPS PO SCH (09:23)
[2024-10-05] MEDS: carvediloL 12.5 MG TAB PO SCH (09:23)
[2024-10-05] MEDS: CITALOPRAM 20 MG TAB PO SCH (09:24)
[2024-10-05] MEDS: LOSARTAN POTASSIUM 50 MG TAB PO SCH (09:24)
[2024-10-05] MEDS: ATORVASTATIN 40 MG TAB PO SCH (09:24)
[2024-10-05] MEDS: CALCIUM 600MG + VIT D 400 IU TAB PO SCH (09:24)
[2024-10-05] MEDS: MULTIVITAMIN CHEWABLE TAB PO SCH (09:24)
[2024-10-05] MEDS: amLODIPine BESYLATE 5 MG TAB PO SCH (09:24)
[2024-10-05] MEDS: CHOLECALCIFEROL 125 MCG (5,000 UNITS) TAB PO SCH (09:24)
[2024-10-05] MEDS: PANTOprazole 40 MG TAB PO SCH (09:24)
[2024-10-05] MEDS: CALCIUM ACETATE 667 MG CAP/TAB PO SCH (09:26)
--- NOTE | 2024-10-05 09:56 | Nephrology Consultation ---
Date of Consultation October 05, 2024 Assessment & Plan (1) Dialysis patient: ESRD on MWF HD via AVF; no issues w/ treatments, last treatment 10/04. chemistries acceptable, mild volume OL noted on CXR and per her sx report -could consider HD here but not urgently needed and concern treatment could provoke arrhythmic episode >> HD tomorrow Care coordinated w/ Drs. Blair and Patria in person regarding volume status, plan for dialysis, plan for cardiac care. We are in agreement. (2) Ventricular tachycardia: planning underway for transfer to [facility] for defibrillator eval for intermittent but sustained v tach (3) Acute on chronic heart failure with preserved ejection fraction: mild HF in setting of arrhythmias above intermittently > await cardiology dispo; continue amiodarone; not likely to respond to diuretics (4) Abnormal urine findings: sx not c/w typical UTI; has suboptimal collection of urine specimen per pt report; did d/w primary service; defer to them but she may need abtx despite all of above. (5) Rhinovirus infection: likely cause of diarrhea; mild History of Present Illness Reason for Consultation: ESRD on HD Requesting Physician: Dr English Attending Physician: April Blair MD History of Present Illness 63 y/o F whom I'm asked to see for dialysis needs was admitted overnight with recurrent syncope/near syncope episodes and found to have recurrent sustained v tach on pacemaker interrogation. 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 She dialyzes MWF at [facility] under the care of my partner Dr Hassan. She reports 5 episodes of "fainting spells" or nearly passing out in the past 5 wks prior to presentation. Every episode has been on a dialysis day after a dialysis treatment. The episode soonest after HD was yesterday, occurring at 1650; the one latest after HD was at about 1900 on another day. She completes her HD at about 1330. She is adherent w/ her txs, last one was yesterday. In the ER she was started on IV amiodarone and ceftriaxone. Cardiology consultation is pending; consideration underway for possible transfer to [facility] for defibrillator placement in medically complex patient. Also endorses worsening exertional dyspnea x past 5-6 days, unable to walk more than 20 feet w/o SOB, whereas normally can go 100 feet. c/o "UTI sx" as well which she describes as pain down the medial aspect of both legs when she voids; denies frequency, dysuria, fever, flank pain. voids daily small amounts, no gross hematuria. states urine specimen done this admission was collected in a hat. does endorse soem chills, no cough, no rhinorrhea. no abd pain, n/v but + diarrhea. no chest pain or palpitations. mild orthopnea. Allergies Allergy/AdvReac Type Severity Reaction Status Date / Time CHIDI Inhibitors AdvReac Intermediate COUGH Verified 10/04/24 22:57 Home Medications Medication Instructions Recorded Confirmed Type amlodipine 5 mg tablet 5 mg PO QAM 30 days #30 tabs 01/16/24 10/04/24 Rx aspirin 81 mg chewable tablet 81 mg PO HS 30 days #30 tabs 01/16/24 10/04/24 Rx calcium acetate 667 mg tablet 2,001 mg (3 x 667 mg) PO TIDM 30 01/16/24 10/04/24 Rx days #90 tabs citalopram 40 mg tablet 20 mg (1/2 x 40 mg) PO QAM 30 days 01/16/24 10/04/24 Rx #30 tabs cyanocobalamin (vitamin B-12) 1,000 mcg IM Q90D 30 days #1 mL 01/16/24 10/04/24 Rx 1,000 mcg/mL injection solution melatonin 10 mg tablet 10 mg PO HS 30 days #30 tabs 01/16/24 10/04/24 Rx insulin lispro 100 unit/mL See Rx Instructions .Route .COMPLEX 07/07/24 10/04/24 History subcutaneous solution nebulizer machine #1 ea 07/09/24 Rx Calcium W/Vitamin D3 1 tab PO BID 10/04/24 10/04/24 History acetaminophen 325 mg tablet 650 mg PO Q6H PRN PAIN/FEVER 10/04/24 10/04/24 History (Tylenol) albuterol sulfate 0.63 mg/3 mL 0.63 mg inhalation Q6H PRN Wheezing 10/04/24 10/04/24 History solution for nebulization atorvastatin 40 mg tablet 40 mg PO QAM 10/04/24 10/04/24 History biotin 10 mg tablet 10 mg PO DAILY 10/04/24 10/04/24 History carvedilol 12.5 mg tablet 12.5 mg PO AMHS 10/04/24 10/04/24 History cholecalciferol (vitamin D3) 125 125 mcg PO DAILY 10/04/24 10/04/24 History mcg (5,000 unit) tablet (Vitamin D3) colestipol 1 gram tablet 2 g PO QDL PRN Diarrhea 10/04/24 10/04/24 History diclofenac sodium 1 % topical gel 2 g topical TID PRN Pain 10/04/24 10/04/24 History gabapentin 300 mg capsule 300 mg PO HS 10/04/24 10/04/24 History insulin glargine 100 unit/mL (3 10 unit subcut QAM 10/04/24 10/04/24 History mL) subcutaneous pen (Lantus Solostar U-100 Insulin) levothyroxine 100 mcg tablet 100 mcg PO DAILYBB 10/04/24 10/04/24 History losartan 50 mg tablet 50 mg PO DAILY 10/04/24 10/04/24 History nitroglycerin 0.4 mg sublingual 0.4 mg sublingual DIRECTED PRN 10/04/24 10/04/24 History tablet (Nitrostat) CHEST PAIN omeprazole 20 mg capsule,delayed 20 mg PO DAILY 10/04/24 10/04/24 History release pediatric multivitamin 1 tab PO BID 10/04/24 10/04/24 History tramadol 50 mg tablet 50 mg PO Q4H PRN Pain 10/04/24 10/04/24 History vit B complx, C-iron 8 mg-folic 1 tab PO DAILY 10/04/24 10/04/24 History acid 800 mcg-D3 1,000 unit-zinc tablet (ProRenal) Patient History Medical History ESRD (end stage renal disease) on dialysis Peripheral neuropathy bilateral legs/feet Anxiety History of anesthesia reaction woke up during hysterectomy in 1995 Hiatal hernia Osteoarthritis Degenerative disc disease Chronic back pain Post traumatic stress disorder History of anesthesia reaction when had port inserted needed more medication and could feel everything GERD (gastroesophageal reflux disease) Surgical History History of colonoscopy S/P left knee arthroscopy S/P right knee arthroscopy H/O radical excision of skin lesion melanoma S/P cardiac pacemaker procedure medtronic device, last checked ~2 months ago. Follows with Dr Stevenson S/P arteriovenous (AV) fistula creation Right arm History of vitrectomy History of cataract surgery bilateral History of adenoidectomy History of tonsillectomy H/O umbilical hernia repair open (~November 2022 [facility]) --> went to [facility] for rehab therapy for about 2 weeks. S/P dialysis catheter insertion right side of chest (since removed) S/P [place]-BSO H/O hernia repair Hx of gastric bypass History of cholecystectomy Hx of cardiac cath "2012, negative for CAD " Family History Other Colonic polyp GERD (gastroesophageal reflux disease) No family history of adverse response to anesthesia Social History Smoking Status: Never smoker Second Hand Exposure: No; Do You Dip or Chew Tobacco: No; Hx Alcohol Use: No Hx Substance Use: No Preferred Language: Thai Communication Ability: Effective Unloader Required: No Beliefs That Will Affect Care: None marital status: Current Living Situation: Spouse Current Living Situation Comment: lives with Other Information That Helps Us Care for You: No Feels Safe at Home: Yes Safety Concerns: Feels Safe At This Time Assistive Devices: None Review of Systems 2 Review of Systems: All systems reviewed & are unremarkable except as noted in HPI & below Physical Exam 2 Constitutional: well developed, + obese and cooperative; no acute distress Eyes: EOM intact bilaterally ENMT: Mouth: + dry oral mucous membranes Respiratory: normal respiratory effort Auscultation: + diminished lung sounds Cardiovascular: Rate/Rhythm: regular rate and regular rhythm Extremities: + edema and + AV fistula Gastrointestinal (Abdomen): Inspection/Auscultation: normal bowel sounds P ercussion/Palpation: abdomen soft; abdomen nontender Musculoskeletal: Extremities: strength 5/5 throughout Skin: no rashes, warm and dry Neurologic: yancey, fluent speech, no tremor Psychiatric: Orientation: alert and oriented x 3 Speech: normal rate/rhythm/volume of speech Results & Data Vital Signs (Past 12 Hours) Vital Signs Temp Pulse Pulse Resp BP BP Pulse Ox 10/05/24 09:30 69 20 146/103 H 97 10/05/24 07:00 63 16 149/72 H 97 10/05/24 05:12 36.9 C 60 20 136/67 99 10/05/24 03:20 60 10/05/24 03:06 60 16 133/62 100 10/05/24 03:06 10/05/24 02:00 61 18 137/64 96 10/05/24 00:27 60 10/05/24 00:00 61 20 135/56 L 98 10/04/24 23:00 158/69 H 10/04/24 22:30 158/93 H 10/04/24 22:30 158/93 H 10/04/24 22:06 65 17 97 10/04/24 22:03 72 27 H 97 10/04/24 22:00 164/79 H 10/04/24 21:57 68 19 97 Pulse Ox O2 Del Method O2 Del Method O2 Flow Rate O2 Flow Rate 10/05/24 09:30 Nasal Cannula 2 10/05/24 07:00 Nasal Cannula 1 10/05/24 05:12 Nasal Cannula 3 10/05/24 03:20 10/05/24 03:06 Nasal Cannula 3 10/05/24 03:06 100 Nasal Cannula 3 10/05/24 02:00 Nasal Cannula 3 10/05/24 00:27 10/05/24 00:00 Nasal Cannula 3 10/04/24 23:00 10/04/24 22:30 10/04/24 22:30 10/04/24 22:06 Nasal Cannula 2 10/04/24 22:03 Nasal Cannula 2 10/04/24 22:00 10/04/24 21:57 Nasal Cannula 2 Laboratory Results 10/05/24 04:36 10/05/24 04:36 UA turbid, pH > 9, 2+ blood/protein, trace glucose, 4+ bacteria, > 50 WBC, 3+ LE, > 20 RBC, 11-20 epithelial cells (collected in hat) Diagnostic Findings TTE > EF 55-60%; mild CLVH, severe mitral annular /apparatus calcification, moderate MR/mild MS; mild and moderate AV calcificaitons; PASP 55, IVC dilated CXR (images personally reviewed/ agree w/ report) > early mild HF
--- NOTE | 2024-10-05 10:47 | Cardiology Consultation ---
Date of Consultation October 05, 2024 Assessment & Plan (1) Ventricular tachycardia: (2) Syncope: (3) Acute on chronic heart failure with preserved ejection fraction: (4) Mild mitral stenosis: (5) Aortic stenosis, mild: (6) ESRD (end stage renal disease) on dialysis: Plan 63-year-old female presents with syncope secondary to ventricular tachycardia. Echocardiogram demonstrating preserved LV systolic function with mild mitral stenosis and mild aortic valve stenosis. No regional wall motion abnormalities appreciated. High-sensitivity troponin not significantly elevated. Patient without anginal symptoms, however, notes extremely sedentary lifestyle. Evidence of acute decompensated heart failure preserved ejection fraction, volume overload with hypoxia. Further ischemic evaluation and possible ICD implantation recommended. Patient requesting transfer to [facility] in [place] for cardiac catheterization and possible ICD implantation.. In regard to volume overload, management as per nephrology via hemodialysis. She is scheduled for HD treatment tomorrow 10/06/2024. Nephrology on board. Continue current cardiovascular medications including aspirin, carvedilol, losartan, and hydrochlorothiazide. Case discussed with internal medicine and nephrology team for continuity of care. Thank you for allow me to participate in the care of your patient. I spent a total of 70 minutes on the date of service in preparation, delivery, and documentation of the care provided to this patient, excluding any time spent in the performance of separately billed services. Bret España DO, [facility] History of Present Illness Reason for Consultation: syncope Requesting Physician: Dr. English Attending Physician: April Blair MD History of Present Illness Complex 63-year-old female presents to the emergency department with syncope. Reports feeling lightheaded and generally unwell at approximately 4:55 PM. Lost consciousness for a few seconds. summoned to the bedside who witnessed reduced level of consciousness although responsive to tactile stimuli. No tonic- clonic movements, tongue biting, or incontinence. Reports feeling nauseated with dry heaves after the event. Denies chest discomfort, however, notes progressive dyspnea on exertion over the past few weeks. No orthopnea, paroxysmal nocturnal dyspnea, or lower extremity edema. Pacemaker interrogation performed in the ER demonstrating ventricular tachycardia at 1657 PM corresponding to patient's episode of syncope. VT recorded on September 03 also corresponds to a syncopal episode. History of normal coronary arteries per cardiac catheterization 2012, sick sinus syndrome status post dual-chamber pacemaker implantation, Chente-en-Y gastric jejunostomy, severe symptomatic anemia due to GI bleeding requiring transfusion, end-stage renal disease on hemodialysis Friday, Friday, and Friday through right upper extremity AV fistula. Allergies Allergy/AdvReac Type Severity Reaction Status Date / Time CHIDI Inhibitors AdvReac Intermediate COUGH Verified 10/04/24 22:57 Home Medications Medication Instructions Recorded Confirmed Type amlodipine 5 mg tablet 5 mg PO QAM 30 days #30 tabs 01/16/24 10/04/24 Rx aspirin 81 mg chewable tablet 81 mg PO HS 30 days #30 tabs 01/16/24 10/04/24 Rx calcium acetate 667 mg tablet 2,001 mg (3 x 667 mg) PO TIDM 30 01/16/24 10/04/24 Rx days #90 tabs citalopram 40 mg tablet 20 mg (1/2 x 40 mg) PO QAM 30 days 01/16/24 10/04/24 Rx #30 tabs cyanocobalamin (vitamin B-12) 1,000 mcg IM Q90D 30 days #1 mL 01/16/24 10/04/24 Rx 1,000 mcg/mL injection solution melatonin 10 mg tablet 10 mg PO HS 30 days #30 tabs 01/16/24 10/04/24 Rx insulin lispro 100 unit/mL See Rx Instructions .Route .COMPLEX 07/07/24 10/04/24 History subcutaneous solution nebulizer machine #1 ea 07/09/24 Rx Calcium W/Vitamin D3 1 tab PO BID 10/04/24 10/04/24 History acetaminophen 325 mg tablet 650 mg PO Q6H PRN PAIN/FEVER 10/04/24 10/04/24 History (Tylenol) albuterol sulfate 0.63 mg/3 mL 0.63 mg inhalation Q6H PRN Wheezing 10/04/24 10/04/24 History solution for nebulization atorvastatin 40 mg tablet 40 mg PO QAM 10/04/24 10/04/24 History biotin 10 mg tablet 10 mg PO DAILY 10/04/24 10/04/24 History carvedilol 12.5 mg tablet 12.5 mg PO AMHS 10/04/24 10/04/24 History cholecalciferol (vitamin D3) 125 125 mcg PO DAILY 10/04/24 10/04/24 History mcg (5,000 unit) tablet (Vitamin D3) colestipol 1 gram tablet 2 g PO QDL PRN Diarrhea 10/04/24 10/04/24 History diclofenac sodium 1 % topical gel 2 g topical TID PRN Pain 10/04/24 10/04/24 History gabapentin 300 mg capsule 300 mg PO HS 10/04/24 10/04/24 History insulin glargine 100 unit/mL (3 10 unit subcut QAM 10/04/24 10/04/24 History mL) subcutaneous pen (Lantus Solostar U-100 Insulin) levothyroxine 100 mcg tablet 100 mcg PO DAILYBB 10/04/24 10/04/24 History losartan 50 mg tablet 50 mg PO DAILY 10/04/24 10/04/24 History nitroglycerin 0.4 mg sublingual 0.4 mg sublingual DIRECTED PRN 10/04/24 10/04/24 History tablet (Nitrostat) CHEST PAIN omeprazole 20 mg capsule,delayed 20 mg PO DAILY 10/04/24 10/04/24 History release pediatric multivitamin 1 tab PO BID 10/04/24 10/04/24 History tramadol 50 mg tablet 50 mg PO Q4H PRN Pain 10/04/24 10/04/24 History vit B complx, C-iron 8 mg-folic 1 tab PO DAILY 10/04/24 10/04/24 History acid 800 mcg-D3 1,000 unit-zinc tablet (ProRenal) Patient History Medical History ESRD (end stage renal disease) on dialysis Peripheral neuropathy bilateral legs/feet Anxiety History of anesthesia reaction woke up during hysterectomy in 1995 Hiatal hernia Osteoarthritis Degenerative disc disease Chronic back pain Post traumatic stress disorder History of anesthesia reaction when had port inserted needed more medication and could feel everything GERD (gastroesophageal reflux disease) Surgical History History of colonoscopy S/P left knee arthroscopy S/P right knee arthroscopy H/O radical excision of skin lesion melanoma S/P cardiac pacemaker procedure medtronic device, last checked ~2 months ago[address] Follows with Dr Stevenson S/P arteriovenous (AV) fistula creation Right arm History of vitrectomy History of cataract surgery bilateral History of adenoidectomy History of tonsillectomy H/O umbilical hernia repair open (~November [address] [facility] [place]) --> went to [facility] for rehab therapy for about 2 weeks. S/P dialysis catheter insertion right side of chest (since removed) S/P [place]-BSO H/O hernia repair Hx of gastric bypass History of cholecystectomy Hx of cardiac cath "2012, negative for CAD " Family History Other Colonic polyp GERD (gastroesophageal reflux disease) No family history of adverse response to anesthesia Social History Smoking Status: Never smoker Second Hand Exposure: No; Do You Dip or Chew Tobacco: No; Hx Alcohol Use: No Hx Substance Use: No Preferred Language: Urdu Communication Ability: Effective Speed Winder Required: No Beliefs That Will Affect Care: None marital status: Current Living Situation: Spouse Current Living Situation Comment: lives with Other Information That Helps Us Care for You: No Feels Safe at Home: Yes Safety Concerns: Feels Safe At This Time Assistive Devices: None Review of Systems Review of Systems: All systems reviewed & are unremarkable except as noted in Subjective Physical Exam Constitutional: well nourished and + obese; no acute distress Respiratory: normal respiratory effort; no respiratory distress, no labored breathing and no retractions Auscultation: + diminished lung sounds (Bases bilateral); no rales, no rhonchi and no wheezes Cardiovascular: Rate/Rhythm: regular rate and regular rhythm Heart Sounds: normal S1, normal S2 and + murmur (1/6 systolic ejection murmur) Vessels: radial pulses present (Palpable left radial pulse and right femoral artery pulse); no JVD and no carotid bruit Extremities: + AV fistula (RUE); no edema Gastrointestinal (Abdomen): Inspection/Auscultation: normal bowel sounds; abdomen not distended Percussion/Palpation: abdomen soft; abdomen nontender, no guarding and abdomen not rigid Neurologic: CN's II-XI intact bilaterally and moves all extremities; no focal motor deficits Results & Data Vital Signs (Past 12 Hours) Vital Signs Temp Pulse Pulse Resp BP BP Pulse Ox 10/05/24 09:30 69 20 146/103 H 97 10/05/24 07:00 63 16 149/72 H 97 10/05/24 05:12 36.9 C 60 20 136/67 99 10/05/24 03:20 60 10/05/24 03:06 60 16 133/62 100 10/05/24 03:06 10/05/24 02:00 61 18 137/64 96 10/05/24 00:27 60 10/05/24 00:00 61 20 135/56 L 98 10/04/24 23:00 158/69 H Pulse Ox O2 Del Method O2 Del Method O2 Flow Rate O2 Flow Rate 10/05/24 09:30 Nasal Cannula 2 10/05/24 07:00 Nasal Cannula 1 10/05/24 05:12 Nasal Cannula 3 10/05/24 03:20 10/05/24 03:06 Nasal Cannula 3 10/05/24 03:06 100 Nasal Cannula 3 10/05/24 02:00 Nasal Cannula 3 10/05/24 00:27 10/05/24 00:00 Nasal Cannula 3 10/04/24 23:00 Laboratory Results Cardiac Enzymes 10/04/24 10/05/24 Range/Units 21:15 04:36 AST 47 H (13-39) U/L Troponin I High Sens 11.5 16.8 H D (0-14) pg/ml CBC 10/04/24 10/05/24 Range/Units 21:15 04:36 WBC 9.63 9.78 (4.8-10.8) K/ul RBC 2.86 L 3.15 L (4.20-5.40) M/uL Hgb 8.7 L 9.3 L (12.0-16.0) g/dl Hct 27.5 L 30.5 L (37.0-47.0) % Plt Count 254 283 (130-400) K/uL Neut # (Auto) 6.71 H 5.46 (1.40-6.50) K/uL Lymph # (Auto) 1.84 3.22 (1.20-3.40) K/uL [place] # (Auto) 0.83 H 0.79 H (0.11-0.59) K/uL Eos # (Auto) 0.14 0.19 (0.00-0.50) K/uL Baso # (Auto) 0.08 0.10 (0.00-0.20) K/uL Comprehensive Metabolic Panel 10/04/24 10/05/24 Range/Units 21:15 04:36 Sodium 133 L 133 L (136-145) mmol/L Potassium 4.2 3.8 (3.5-5.1) mmol/L Chloride 91 L 90 L (98-107) mmol/L Carbon Dioxide 32 35 H (21-32) mmol/L BUN 20 24 H (6-23) mg/dl Creatinine 4.54 H* 5.13 H* D (0.6-1.2) mg/dl Glucose 218 H 162 H (70-99(Fasting)) mg/dl Calcium 8.9 9.9 (8.6-10.3) mg/dl AST 47 H (13-39) U/L ALT 19 (7-52) U/L Alkaline Phosphatase 111 H (34-104) U/L Total Protein 6.6 (6.0-8.3) gm/dl Albumin 3.8 (3.4-5.0) gm/dl Intake and Output 10/04/24 10/05/24 10/05/24 22:59 06:59 14:59 Intake Total 100 / 500 400 / 500 Balance 100 / 500 400 / 500 Intake: IV 100 / 350 250 / 350 Amiodarone / D5w 150 mg In 100 100 / 100 ml @ 600 mls/hr IV NOW STA Rx#: [id number] Amiodarone / D5w 360 mg In 200 200 / 200 ml @ 1 MG/MIN 33.333 mls/hr IV ONE ONE Rx#:[id number] cefTRIAXone SODIUM 2,000 mg In 50 / 50 50 ml @ 100 mls/hr IV NOW STA Rx#:[id number] Oral 150 / 150 Other: Weight 103.1 kg 102.8 kg Weight Measurement Method Built in [facility] (2) Syncope Syncope type: unspecified Qualified Code(s): R55 - Syncope and collapse
[2024-10-05] MEDS: ACETAMINOPHEN 325 MG TAB PO PRN (11:16)
--- NOTE | 2024-10-05 12:06 | Discharge Summary ---
Date of Service October 05, 2024 Admission HPI Per Admitting Provider 63-year-old female with past medical history significant for type 2 diabetes, diabetic polyneuropathy, end-stage renal disease on hemodialysis, dyslipidemia, hypothyroidism, diabetic gastroparesis, diabetic retinopathy, obstructive sleep apnea on CPAP, chronic diastolic CHF, sick sinus syndrome, status post pacemaker, paroxysmal atrial tachycardia, pulmonary hypertension, hypertension, GERD, morbid obesity, status post gastric bypass, depression, history of endometrial cancer, CHIDI inhibitor intolerance, recurrent ventral incisional hernia comes because of syncope. Since last month she passed out 5 times. Most of the time when she passed out she was sitting. On one episode she was sitting on table and her head hit the table. Today she had dialysis and was doing okay. After coming home she was trying to nap. When suddenly she did not feel good and she called her and she passed out. She thinks passed out for couple of minutes. After she woke up she was somewhat dizzy and seeing spots for about 10 minutes. No shaking of the body. No biting of tongue. No incontinence. Last couple of days she is having some runny nose, sore throat and cough. No fevers. Since last about 1 week she was feeling shortness of breath with exertion. Make small amount of urine. Last few days she has had diarrhea. Denies any chest pain. No headache. In the ER pacemaker was interrogated and was found to have runs of V. tach's. Seems today's V. tach happened during the episode of syncope. ER discussed with cardiology and started on amiodarone drip. Currently resting comfortably . Past medical history. As mentioned above Past surgical history. Abdominal wall hernia repair. Breast biopsy. Colonoscopy. Left heart catheterization. EGD. Pacemaker placement. Laparoscopic procedure on liver. Laparoscopic gastric bypass Chente-en-Y. Laparoscopic cholecystectomy. Breast biopsy. Left breast mass excision ductal hyperplasia. Right knee arthroscopy. Tonsillectomy and adenoidectomy. Repair of incisional hernia. Revision gastrojejunal anastomosis. Total abdominal hysterectomy with removal of tubes. Social history. . No smoking. No alcohol use. No drug use. Family history. Mother had breast cancer. Ovarian cancer. Hypertension. Father had melanoma. Heart disorder. Stroke. Sister glaucoma. History of CAD. Paternal cousin had breast cancer. Paternal aunt had breast cancer. Paternal aunt had ovarian cancer. Admission Exam Per Admitting Provider General- Not in distress. Head- atraumatic Eyes- PERRL. ENT- oropharynx clear Neck- supple, no JVD. Lungs- clear to auscultation no wheezing or crackles Heart- regular rhythm; no murmur, no gallop. Abdomen- normal bowel sounds, soft, nontender, no distension Extremities- no pretibial edema, no erythema seen Neuro- alert, oriented PERRL, no facial palsy; no dysarthria; moves extremities Principal Diagnosis Recurrent syncope Ventricular tachycardia Discharge Exam Constitutional + well hydrated and + obese; no acute distress Eyes PERRL, conjunctivae normal, anicteric sclerae ENMT external ear and nose normal, oropharynx normal Respiratory normal respiratory effort; no respiratory distress Diminished breath sounds Cardiovascular Rate/Rhythm: regular rate and regular rhythm Gastrointestinal (Abdomen) normal bowel sounds, soft, nontender, no hepatosplenomegaly Neurologic PERRL, EOMI, accommodation nl, no face palsy, no dysarthria Psychiatric A+Ox3, euthymic affect Discharge Data Allergies Allergy/AdvReac Type Severity Reaction Status Date / Time CHIDI Inhibitors AdvReac Intermediate COUGH Verified 10/04/24 22:57 Consultations 10/04/24 22:01 ED Decision to Admit Stat 10/05/24 08:00 Consult Cardiology Routine Consult Nephrology Routine Hospital Course (1) Syncope: 63-year-old female with past medical history significant for type 2 diabetes, diabetic polyneuropathy, end-stage renal disease on hemodialysis, dyslipidemia, hypothyroidism, diabetic gastroparesis, diabetic retinopathy, obstructive sleep apnea on CPAP, chronic diastolic CHF, sick sinus syndrome, status post pacemaker, paroxysmal atrial tachycardia, pulmonary hypertension, hypertension, GERD, morbid obesity, status post gastric bypass, depression, history of endometrial cancer, CHIDI inhibitor intolerance, recurrent ventral incisional hernia comes because of syncope. Since last month she passed out 5 times. Most of the time when she passed out she was sitting. In the ER pacemaker was interrogated and was found to have runs of V. tach's. Had V. tach happened during the episode of syncope. Patient was started on amiodarone drip. Other labs was notable for +Rhinovirus Patient recurrent syncopal episodes deemed to be due to Ventricular tachycardia I discussed with Production Control Analyst Dr España who recommends transfer to [facility] for cardiac catheterization/EP eval and treat Through our transfer center, I called [facility] and discussed with Dr Honorio Alvarez who accepted patient for transfer Patient and notified Total Time Total Time Spent Total Time Spent (In Minutes): 55 Total Time Includes: Examination of the Patient, Discharge Planning, Medication Reconciliation, Communication With Other Providers and Other Discharge Plan Discharge Items Patient Disposition: Transfer Acute Care Hospital Reason For Visit: SYNCOPE Discharge Diagnosis: Recurrent syncope Ventricular tachycardia Condition on Discharge: Serious Activity: Per Instructions section Non-emergency contact: Primary Care Provider and Production Control Analyst Call non-emergency contact if: you have any medication questions Follow-up/Referrals: Luis Fernando Rojas MD [Primary Care Provider] - Diet: Nothing by Mouth Addtl Attending Provider Instructions: Mrs Irvin You were brought to the hospital for syncopal episode Your pacemaker interrogation revealed ventricular tachycardia, an abnormal heart rhythm. You are being transferred to [facility] for further evaluation and management. It was a pleasure taking care of you Pending Studies at Discharge: No Stand-Alone Forms: My [facility] Skilled Items Patient informed of condition?: Yes DNR: No Discharge Level of Care: Other Communicable Disease: No Discharge Prognosis: Stable Lines: Peripheral IV Urinary Catheter: No Medications and DC Order Prescriptions: Continued losartan 50 mg Tablet 50 mg PO DAILY biotin 10 mg Tablet 10 mg PO DAILY albuterol sulfate 0.63 mg/3 mL Solution For Nebulization 0.63 mg INHALATION Q6H PRN (Reason: Wheezing) acetaminophen [Tylenol] 325 mg Tablet 650 mg PO Q6H PRN (Reason: PAIN/FEVER) pediatric multivitamin Tablet,Chewable 1 tab PO BID tramadol 50 mg Tablet 50 mg PO Q4H PRN (Reason: Pain) nitroglycerin [Nitrostat] 0.4 mg Tablet, Sublingual 0.4 mg sublingual DIRECTED PRN (Reason: CHEST PAIN) gabapentin 300 mg Capsule 300 mg PO HS omeprazole 20 mg Capsule,Delayed Release(Dr/Ec) 20 mg PO DAILY colestipol 1 gram Tablet 2 g PO QDL PRN (Reason: Diarrhea) diclofenac sodium 1 % Gel 2 g TOPICAL TID PRN (Reason: Pain) cholecalciferol (vitamin D3) [Vitamin D3] 125 mcg (5,000 unit) Tablet 125 mcg PO DAILY Calcium W/Vitamin D3 1 tab PO BID Rx Instructions: CONCENTRATION 600 MG/20 MCG. atorvastatin 40 mg tablet 40 mg PO QAM carvedilol 12.5 mg tablet 12.5 mg PO AMHS levothyroxine 100 mcg tablet 100 mcg PO DAILYBB insulin glargine [Lantus Solostar U-100 Insulin] 100 unit/mL (3 mL) insulin pen 10 unit SUBCUT QAM ProRenal 8 mg iron-800 mcg-1,000 unit tablet 1 tab PO DAILY citalopram 40 mg tablet 20 mg PO QAM 30 Days Qty: 30 0RF amlodipine 5 mg tablet 5 mg PO QAM 30 Days Qty: 30 0RF cyanocobalamin (vitamin B-12) 1,000 mcg/mL Solution 1,000 mcg IM Q90D 30 Days Qty: 1 0RF aspirin 81 mg Tablet,Chewable 81 mg PO HS 30 Days Qty: 30 0RF melatonin 10 mg Tablet 10 mg PO HS 30 Days Qty: 30 0RF calcium acetate 667 mg Tablet 2,001 mg PO TIDM 30 Days Qty: 90 0RF Rx Instructions: Take 3 capsules by mouth with each meal and 2 capsules by mouth with each snack insulin lispro 100 unit/mL solution See Rx Instructions .ROUTE .COMPLEX Rx Instructions: TAKES 12 UNITS WITH BREAKFAST AND LUNCH, THEN 14 UNITS WITH SUPPER. (DME) nebulizer machine See Rx Instructions .Route .MEDSUPPLY Qty: 1 0RF Rx Instructions: As directed Discharge Orders: Discharge Order (Routine); Ordered 10/05/24 Ordered By: April Blair Admission Data Admit Date/Time: 10/05/24 02:14 Attending Provider: April Blair I. Admit Provider: Song English Primary Care Provider: Luis Fernando Rojas Other Providers: Song English; Bret España; Clare Donaldson
[2024-10-05] MEDS: MECLIZINE HCL 25 MG TAB PO STA (13:58)
[2024-10-05 13:59] VITALS: BP 126/66; PULSE 72; RESP 18; O2SAT 96
--- NOTE | 2024-10-05 14:51 | Electrocardiogram Report ---
Test Reason : Blood Pressure : */* mmHG Vent. Rate : 80 BPM Atrial Rate : 80 BPM P-R Int : 198 ms QRS Dur : 184 ms QT Int : 480 ms P-R-T Axes : 86 255 103 degrees QTcB Int : 553 ms AV dual-paced rhythm Abnormal ECG When compared with ECG of 07-Jul-2024 13:55, Vent. rate has increased by 4 bpm Confirmed by Regis Mayfield ([id number]) on 10/05/2024 2:50:55 PM Referred By: REFERRED SELF Confirmed By: Regis Mayfield
[2024-10-05] MEDS ORDERED: GABAPENTIN 300 MG CAP PO SCH (21:00)
[2024-10-05] MEDS ORDERED: MELATONIN 3 MG TAB PO SCH (21:00)
[2024-10-05] MEDS ORDERED: ASPIRIN 81 MG ECTAB PO SCH (21:00)
[2024-10-05] MEDS ORDERED: cefTRIAXone SODIUM 2,000 MG/50 ML BAG IV SCH (22:00)
== END 2024-10-05 13:58 | disposition short-term general hospital (02) | DRG 308 ==
LOC: ED 19:58 → EDINP 10-05 02:14

== ENCOUNTER 2024-11-03 15:42 | Inpatient (IN) ==
--- NOTE | 2024-11-03 16:35 | Emergency Department Note ---
Impression & Plan Ventricular tachycardia Admission ED Provider Note HPI: History obtained from patient. The patient is a 63-year-old female with history of sick sinus syndrome status post ICD placement at [facility] in [place], end-stage renal disease, on dialysis Friday, who presents the emergency department with a chief complaint of a presyncopal event. Patient states she went to dialysis as scheduled today and had a full session, patient states when she returned she had 5 "mini episodes" that she describes as lightheadedness and a near syncopal sensation. Patient states that she has not had any chest pain but she did have some mild shortness of breath with the episodes. Patient denies that at any point she actually lost consciousness. On arrival here to the ED the patient is alert, she is hemodynamically stable, she appears to be in no acute distress. ROS: - Per HPI Differential Diagnosis: Arrhythmia to include atrial fibrillation with RVR, SVT, ventricular tachycardia, ventricular fibrillation, ACS, PE, acute dehydration, vasovagal event, amongst other potential pathologies. *Outpatient medications and allergy history reviewed. PE: General: Alert, no acute distress HEENT: Normocephalic, trachea midline Eyes: Extraocular eye movement is intact, no scleral erythema Pulmonary: Clear to auscultation bilaterally, no wheezing Cardio: Regular rate and rhythm GI: Abdomen is soft to palpation : No suprapubic tenderness MSK: No evidence of trauma or malformation of the extremities, no edema Skin: No evidence of rash Neuro: Alert, no focal deficits Psychiatric: Cooperative INDEPENDENT INTERPRETATIONS: hall monitor: (As interpreted by myself): - An order was placed for continuous cardiac monitoring - Patient was noted to be in paced rhythm with a rate of 80 EKG: (As interpreted by myself): Rate: 71 Rhythm: Atrial sensed and ventricular paced rhythm Intervals: OR interval 200 ms, QRS 188 ms, QTc [address] changes: No ST elevation Time: 1549 Chest x-ray: (As interpreted by myself): No acute disease Interventions provided in ED: - IV fluid bolus, IV amiodarone bolus and drip Medical Decision Making: IV was established and lab work obtained, patient was placed on secured entrance monitor. Lab work shows no leukocytosis, hemoglobin is near baseline at 9.7. Platelet count is normal. CMP shows baseline chronic kidney disease status post dialysis, troponin is mildly elevated at 16.1, magnesium is within normal limits. TSH is also normal. Chest x-ray does not show any evidence of any focal infiltrate. Patient is saturating well on room air. EKG per my interpretation shows a paced rhythm without any obvious arrhythmia or acute ischemic changes. Patient's Medtronic pacemaker/ICD was interrogated, I did receive a phone call from the [employer] representative stating that the patient did receive a shock today for ventricular fibrillation at 2:30 PM. I discussed this with the patient, she states that she does not remember the shock but states "maybe I was out of it I was feeling pretty lightheaded". I discussed the patient's presentation with on-call [facility] cardiology, Dr. Stevenson, he is in agreement for consultation and recommends placing the patient on an amiodarone drip and he will evaluate the patient on the inpatient basis. While I was discussing the patient with the hospitalist service for admission, the patient had an event where she went into ventricular fibrillation and had another shock from her ICD. Patient was therefore transferred to one of the large trauma rooms and she was evaluated there by [facility]ology (Dr. Stevenson) as well as [facility] electrophysiology (Dr. Dunham). Patient remained stable status post ICD shock and remained on amiodarone drip and was also placed on magnesium as well as beta-griselda therapy. Pacemaker/ICD settings were adjusted, following discussion with cardiology here in the ED patient was comfortable with admission to the ICU. [facility] hospitalist service was consulted and the patient's presentation was discussed multiple times with the on-call hospitalist, Dr. Rivera. Plan at this point will be for admission to the medicine service and placement in the ICU overnight on amiodarone drip for further management. Patient was in agreement to this plan and she was placed for admission in stable condition. Consultants/Discussions held with other healthcare providers: - Cardiology, Dr. Stevenson - Electrophysiology, Dr. Dunham - Hospitalist, Dr. Rivera Disposition discussion held by myself with: - Patient * CRITICAL CARE TIME: ( 49 ) minutes - Stabilization of patient with recurrent episodes of ventricular fibrillation requiring ICD shock to be initiated for stabilization, time spent at the bedside, interpretation of diagnostic studies, discussion with multiple other physicians for arrangement of disposition to the ICU for further management. Diagnosis: 1. Ventricular tachycardia/ventricular fibrillation, acute 2. History of ventricular arrhythmia, status post ICD placement 3. Syncope, acute 4. ESRD, on dialysis Disposition: Admission Luis Fernando Shah DO Emergency Medicine Past Med/Surg History Problem List Ventricular tachycardia (Acute) Mitral regurgitation and mitral stenosis Aortic stenosis, mild Mild mitral stenosis Abnormal urine findings Ventricular tachycardia Dialysis patient (Acute) Dysrhythmia (Acute) Rhinovirus infection (Acute) Syncope (Acute) Hypertension Rhinovirus infection (Acute) Hypoxia (Acute) Hypo-osmolar hyponatremia Insulin-requiring or dependent type II diabetes mellitus Acute on chronic heart failure with preserved ejection fraction Volume overload Acute bronchitis due to Rhinovirus Acute hypoxic respiratory failure Hypotension of hemodialysis Hyperkalemia Fracture of right tibial plateau Closed right tibial fracture (Acute) ESRD (end stage renal disease) on dialysis (Acute) Fall (Acute) Colon polyps S/P knee surgery (Chronic) DVT prophylaxis Anxiety Anemia Upper GI bleed (Acute) Hematemesis with nausea (Acute) Encounter for pre-operative examination Gastric ulcer COVID-19 (Acute) Acute dyspnea (Acute) Bilateral leg weakness (Acute) Anemia (Acute) Ambulatory dysfunction (Acute) Back pain (Acute) Tremor Obesity ESRD (end stage renal disease) on dialysis (Acute) Mon/Fri/Fri at [facility]. Pacemaker SSS Med[employer] follows with dr rosalie Wilks diastolic CHF (congestive heart failure) Depression Hypothyroidism SSS (sick sinus syndrome) Pt admitted for elective pacemaker due to SSS. She underwent procedure without any complications. Monitored over night and discharged home. MINISTERIO on CPAP (Chronic) MDD (major depressive disorder) (Chronic) HLD (hyperlipidemia) (Chronic) HTN (hypertension) (Chronic) Diabetes mellitus, type II (Chronic) IDDM H/O esophagogastroduodenoscopy (Chronic) Medical History ESRD (end stage renal disease) on dialysis Peripheral neuropathy bilateral legs/feet Anxiety History of anesthesia reaction woke up during hysterectomy in 1995 Hiatal hernia Osteoarthritis Degenerative disc disease Chronic back pain Post traumatic stress disorder History of anesthesia reaction when had port inserted needed more medication and could feel everything GERD (gastroesophageal reflux disease) Surgical History History of colonoscopy S/P left knee arthroscopy S/P right knee arthroscopy H/O radical excision of skin lesion melanoma S/P cardiac pacemaker procedure medtronic device, last checked ~2 months ago. Follows with Dr Stevenson S/P arteriovenous (AV) fistula creation Right arm History of vitrectomy History of cataract surgery bilateral History of adenoidectomy History of tonsillectomy H/O umbilical hernia repair open (~November 2022 [facility]) --> went to [facility] for rehab therapy for about 2 weeks. S/P dialysis catheter insertion right side of chest (since removed) S/P [place]-BSO H/O hernia repair Hx of gastric bypass History of cholecystectomy Hx of cardiac cath "2012, negative for CAD " Family History Other Colonic polyp GERD (gastroesophageal reflux disease) No family history of adverse response to anesthesia Social History Smoking Status: Never smoker Second Hand Exposure: No; Do You Dip or Chew Tobacco: No; Hx Alcohol Use: No Hx Substance Use: No Preferred Language: Georgian Communication Ability: Effective Freezer Assistant Required: No Beliefs That Will Affect Care: None marital status: Current Living Situation: Spouse Current Living Situation Comment: lives with Other Information That Helps Us Care for You: No Feels Safe at Home: Yes Safety Concerns: Feels Safe At This Time Assistive Devices: Walker Allergies Allergies Allergy/AdvReac Type Severity Reaction Status Date / Time CHIDI Inhibitors AdvReac Intermediate COUGH Verified 11/03/24 17:19 Home Meds Home Medications Medication Instructions Recorded Confirmed insulin lispro 100 unit/mL See Rx Instructions .Route .COMPLEX 07/07/24 11/03/24 subcutaneous solution acetaminophen 325 mg tablet 650 mg PO Q6H PRN PAIN/FEVER 10/04/24 11/03/24 (Tylenol) albuterol sulfate 0.63 mg/3 mL 0.63 mg inhalation Q6H PRN Wheezing 10/04/24 11/03/24 solution for nebulization atorvastatin 40 mg tablet 40 mg PO QPM 10/04/24 11/03/24 biotin 10 mg tablet 10 mg PO DAILY 10/04/24 11/03/24 calcium 600 mg (as 1 tab PO BID ##0 10/04/24 11/03/24 carbonate)-vitamin D3 5 mcg (200 unit) tablet cholecalciferol (vitamin D3) 125 125 mcg PO DAILY 10/04/24 11/03/24 mcg (5,000 unit) tablet (Vitamin D3) colestipol 1 gram tablet 2 g PO QDL PRN Diarrhea 10/04/24 11/03/24 diclofenac sodium 1 % topical gel 2 g topical TID PRN Pain 10/04/24 11/03/24 gabapentin 300 mg capsule 300 mg PO HS 10/04/24 11/03/24 insulin glargine 100 unit/mL (3 10 unit subcut QAM 10/04/24 11/03/24 mL) subcutaneous pen (Lantus Solostar U-100 Insulin) levothyroxine 100 mcg tablet 100 mcg PO DAILYBB 10/04/24 11/03/24 nitroglycerin 0.4 mg sublingual 0.4 mg sublingual DIRECTED PRN 10/04/24 11/03/24 tablet (Nitrostat) CHEST PAIN omeprazole 20 mg capsule,delayed 20 mg PO DAILY 10/04/24 11/03/24 release pediatric multivitamin 1 tab PO BID 10/04/24 11/03/24 tramadol 50 mg tablet 50 mg PO Q4H PRN Pain 10/04/24 11/03/24 vit B complx, C-iron 8 mg-folic 1 tab PO DAILY 10/04/24 11/03/24 acid 800 mcg-D3 1,000 unit-zinc tablet (ProRenal) midodrine 5 mg tablet 5 mg PO DIRECTED 11/03/24 11/03/24 Previous Rx's Medication Instructions Recorded amlodipine 5 mg tablet 5 mg PO QAM 30 days #30 tabs 01/16/24 aspirin 81 mg chewable tablet 81 mg PO HS 30 days #30 tabs 01/16/24 calcium acetate 667 mg tablet 2,001 mg (3 x 667 mg) PO TIDM 30 01/16/24 days #90 tabs citalopram 40 mg tablet 20 mg (1/2 x 40 mg) PO QAM 30 days 01/16/24 #30 tabs cyanocobalamin (vitamin B-12) 1,000 mcg IM Q90D 30 days #1 mL 01/16/24 1,000 mcg/mL injection solution melatonin 10 mg tablet 10 mg PO HS 30 days #30 tabs 01/16/24 nebulizer machine #1 ea 07/09/24 Results & Data (ED) Vital Signs Vital Signs - 24 hr 11/03/24 15:52 11/03/24 16:02 11/03/24 16:52 Temperature 36.8 C Temperature Source Oral Pulse Rate 69 71 Pulse Rate [Apical] 73 Pulse Rate from SpO2 Sensor Pulse Rhythm Pulse Rhythm [Apical] Regular Pulse Strength [Apical] Normal Respiratory Rate 20 24 Respiratory Effort / Characteristics Non-Labored Spontaneous Non-Labored Respiratory Depth Normal Normal Respiratory Pattern Regular Blood Pressure 145/75 H Blood Pressure [Left Arm] 145/75 H Blood Pressure Mean 98 Blood Pressure Mean [Left Arm] 98 Blood Pressure Position Lying Blood Pressure Position [Left Arm] Lying Pulse Oximetry 92 98 Oxygen Delivery Method Room Air Room Air Oxygen Flow Rate Sepsis Recent Fever Within 48 Hours No Sepsis New/Unexplained Change in Mental Status No Sepsis Action Taken by Nursing No Action Required Oxygen Flow Rate - Titration Pulse Oximetry Post Tiitration 11/03/24 16:53 11/03/24 18:09 11/03/24 18:15 Temperature Temperature Source Pulse Rate 71 65 Pulse Rate [Apical] 67 Pulse Rate from SpO2 Sensor Pulse Rhythm Regular Pulse Rhythm [Apical] Pulse Strength [Apical] Respiratory Rate 14 25 H Respiratory Effort / Characteristics Non-Labored Spontaneous Respiratory Depth Normal Respiratory Pattern Blood Pressure Blood Pressure [Left Arm] 122/65 Blood Pressure Mean Blood Pressure Mean [Left Arm] 84 Blood Pressure Position Blood Pressure Position [Left Arm] Lying Pulse Oximetry 98 94 Oxygen Delivery Method Room Air Room Air Oxygen Flow Rate Sepsis Recent Fever Within 48 Hours Sepsis New/Unexplained Change in Mental Status Sepsis Action Taken by Nursing Oxygen Flow Rate - Titration Pulse Oximetry Post Tiitration 11/03/24 18:27 11/03/24 18:45 11/03/24 18:48 Temperature Temperature Source Pulse Rate 64 90 Pulse Rate [Apical] 65 Pulse Rate from SpO2 Sensor Pulse Rhythm Pulse Rhythm [Apical] Pulse Strength [Apical] Respiratory Rate 24 Respiratory Effort / Characteristics Non-Labored Spontaneous Respiratory Depth Normal Respiratory Pattern Blood Pressure 152/78 H Blood Pressure [Left Arm] 154/75 H Blood Pressure Mean Blood Pressure Mean [Left Arm] 101 Blood Pressure Position Blood Pressure Position [Left Arm] Lying Pulse Oximetry 93 Oxygen Delivery Method Room Air Oxygen Flow Rate Sepsis Recent Fever Within 48 Hours Sepsis New/Unexplained Change in Mental Status Sepsis Action Taken by Nursing Oxygen Flow Rate - Titration Pulse Oximetry Post Tiitration 11/03/24 18:55 11/03/24 19:03 11/03/24 19:15 Temperature Temperature Source Pulse Rate 88 83 82 Pulse Rate [Apical] Pulse Rate from SpO2 Sensor 84 Pulse Rhythm Pulse Rhythm [Apical] Pulse Strength [Apical] Respiratory Rate 20 Respiratory Effort / Characteristics Respiratory Depth Respiratory Pattern Blood Pressure 158/95 H 158/95 H 174/119 H Blood Pressure [Left Arm] Blood Pressure Mean 116 Blood Pressure Mean [Left Arm] Blood Pressure Position Blood Pressure Position [Left Arm] Pulse Oximetry 94 Oxygen Delivery Method Room Air Oxygen Flow Rate Sepsis Recent Fever Within 48 Hours Sepsis New/Unexplained Change in Mental Status Sepsis Action Taken by Nursing Oxygen Flow Rate - Titration Pulse Oximetry Post Tiitration 11/03/24 19:15 11/03/24 19:18 11/03/24 19:21 Temperature Temperature Source Pulse Rate 66 81 Pulse Rate [Apical] Pulse Rate from SpO2 Sensor 67 Pulse Rhythm Pulse Rhythm [Apical] Pulse Strength [Apical] Respiratory Rate 19 Respiratory Effort / Characteristics Respiratory Depth Respiratory Pattern Blood Pressure 174/119 H 174/119 H Blood Pressure [Left Arm] Blood Pressure Mean 143 Blood Pressure Mean [Left Arm] Blood Pressure Position Blood Pressure Position [Left Arm] Pulse Oximetry 95 88 L Oxygen Delivery Method Room Air Nasal Cannula Oxygen Flow Rate 0 Sepsis Recent Fever Within 48 Hours Sepsis New/Unexplained Change in Mental Status Sepsis Action Taken by Nursing Oxygen Flow Rate - Titration 2 Pulse Oximetry Post Tiitration 97 11/03/24 19:30 11/03/24 19:31 11/03/24 19:45 Temperature Temperature Source Pulse Rate 80 Pulse Rate [Apical] 80 80 Pulse Rate from SpO2 Sensor 80 Pulse Rhythm Pulse Rhythm [Apical] Regular Pulse Strength [Apical] Respiratory Rate 13 21 16 Respiratory Effort / Characteristics Non-Labored Spontaneous Non-Labored Spontaneous Respiratory Depth Normal Normal Respiratory Pattern Regular Regular Blood Pressure 169/83 H Blood Pressure [Left Arm] 169/83 H 166/78 H Blood Pressure Mean 118 Blood Pressure Mean [Left Arm] 111 107 Blood Pressure Position Blood Pressure Position [Left Arm] Pulse Oximetry 98 98 96 Oxygen Delivery Method Nasal Cannula Nasal Cannula Nasal Cannula Oxygen Flow Rate 2 2 2 Sepsis Recent Fever Within 48 Hours Sepsis New/Unexplained Change in Mental Status Sepsis Action Taken by Nursing Oxygen Flow Rate - Titration Pulse Oximetry Post Tiitration 11/03/24 20:00 Temperature Temperature Source Pulse Rate Pulse Rate [Apical] 80 Pulse Rate from SpO2 Sensor Pulse Rhythm Pulse Rhythm [Apical] Regular Pulse Strength [Apical] Respiratory Rate 17 Respiratory Effort / Characteristics Non-Labored Spontaneous Respiratory Depth Normal Respiratory Pattern Regular Blood Pressure Blood Pressure [Left Arm] 159/79 H Blood Pressure Mean Blood Pressure Mean [Left Arm] 105 Blood Pressure Position Blood Pressure Position [Left Arm] Pulse Oximetry 98 Oxygen Delivery Method Nasal Cannula Oxygen Flow Rate 2 Sepsis Recent Fever Within 48 Hours Sepsis New/Unexplained Change in Mental Status Sepsis Action Taken by Nursing Oxygen Flow Rate - Titration Pulse Oximetry Post Tiitration Laboratory Data 11/03/24 16:09 11/03/24 16:09 Lab Results 11/03/24 11/03/24 11/03/24 Range/Units 16:09 17:07 17:07 WBC 8.54 (4.8-10.8) K/ul RBC 3.10 L (4.20-5.40) M/uL Hgb 9.7 L (12.0-16.0) g/dl Hct 30.0 L (37.0-47.0) % MCV 96.8 (80.0-100.0) fL MCH 31.3 (25.0-34.0) pg MCHC 32.3 (32.0-36.0) g/dL RDW Std Deviation 53.1 H (36.4-46.3) fL RDW Coeff of Leatha 14.8 H (11.5-14.5) % Plt Count 170 (130-400) K/uL MPV 11.4 (9.4-12.4) fL Immature Gran % (Auto) 0.2 % Neut % (Auto) 66.2 % Lymph % (Auto) 20.6 % [place] % (Auto) 8.9 % Eos % (Auto) 3.2 % Baso % (Auto) 0.9 % Neut # (Auto) 5.65 (1.40-6.50) K/uL Lymph # (Auto) 1.76 (1.20-3.40) K/uL [place] # (Auto) 0.76 H (0.11-0.59) K/uL Eos # (Auto) 0.27 (0.00-0.50) K/uL Baso # (Auto) 0.08 (0.00-0.20) K/uL Immature Gran # (Auto) 0.02 (0.01-0.20) K/uL PT 10.8 (9.0-12.0) Seconds INR 1.0 (0.9-1.1) Sodium 138 (136-145) mmol/L Potassium 3.8 (3.5-5.1) mmol/L Chloride 92 L (98-107) mmol/L Carbon Dioxide 38 H (21-32) mmol/L Anion Gap 8 (3-11) BUN 13 (6-23) mg/dl Creatinine 2.62 H (0.6-1.2) mg/dl Est Cr Clr Drug Dosing 24.5 ml/min eGFR 19.68 BUN/Creatinine Ratio 5.0 L (10-20) Glucose 267 H (70-99(Fasting)) mg/dl Calcium 9.8 (8.6-10.3) mg/dl Magnesium 2.0 (1.7-2.4) mg/dl Total Bilirubin 0.5 (0.2-1.0) mg/dl AST 27 (13-39) U/L ALT 21 (7-52) U/L Alkaline Phosphatase 128 H (34-104) U/L Troponin I High Sens 16.1 H (0-14) pg/ml Total Protein 7.2 (6.0-8.3) gm/dl Albumin 4.1 (3.4-5.0) gm/dl Globulin 3.1 (2.5-4.0) gm/dl Albumin/Globulin Ratio 1.3 (0.9-2) Lipase 28 (11-82) U/L TSH 3.245 Cancelled (0.300-4.500) uIu/ml 11/03/24 Range/Units 19:38 WBC (4.8-10.8) K/ul RBC (4.20-5.40) M/uL Hgb (12.0-16.0) g/dl Hct (37.0-47.0) % MCV (80.0-100.0) fL MCH (25.0-34.0) pg MCHC (32.0-36.0) g/dL RDW Std Deviation (36.4-46.3) fL RDW Coeff of Leatha (11.5-14.5) % Plt Count (130-400) K/uL MPV (9.4-12.4) fL Immature Gran % (Auto) % Neut % (Auto) % Lymph % (Auto) % [place] % (Auto) % Eos % (Auto) % Baso % (Auto) % Neut # (Auto) (1.40-6.50) K/uL Lymph # (Auto) (1.20-3.40) K/uL [place] # (Auto) (0.11-0.59) K/uL Eos # (Auto) (0.00-0.50) K/uL Baso # (Auto) (0.00-0.20) K/uL Immature Gran # (Auto) (0.01-0.20) K/uL PT (9.0-12.0) Seconds INR (0.9-1.1) Sodium (136-145) mmol/L Potassium (3.5-5.1) mmol/L Chloride (98-107) mmol/L Carbon Dioxide (21-32) mmol/L Anion Gap (3-11) BUN (6-23) mg/dl Creatinine (0.6-1.2) mg/dl Est Cr Clr Drug Dosing ml/min eGFR BUN/Creatinine Ratio (10-20) Glucose (70-99(Fasting)) mg/dl Calcium (8.6-10.3) mg/dl Magnesium 2.1 (1.7-2.4) mg/dl Total Bilirubin (0.2-1.0) mg/dl AST (13-39) U/L ALT (7-52) U/L Alkaline Phosphatase (34-104) U/L Troponin I High Sens (0-14) pg/ml Total Protein (6.0-8.3) gm/dl Albumin (3.4-5.0) gm/dl Globulin (2.5-4.0) gm/dl Albumin/Globulin Ratio (0.9-2) Lipase (11-82) U/L TSH (0.300-4.500) uIu/ml Administered Medications Amiodarone HCl/Dextrose (Nexterone / D5w) 360 mg in 200 mls @ 33.333 mls/hr IV ONE ONE Stop: 11/03/24 23:44 Last Admin: 11/03/24 18:05 Dose: 1 mg/min, 33.3 mls/hr Documented By: ABIODUN Co-signed By: GINI Discontinued Medications Amiodarone HCl (Amiodarone Iv Bolus & Drip) 1 each IV NOW STA; Protocol Stop: 11/03/24 17:35 Last Admin: 11/03/24 19:11 Dose: Not Given Documented By: FELTON Sodium Chloride (Nss) 500 mls @ 999 mls/hr IV .Q31M ONE Stop: 11/03/24 17:03 Last Infusion: 11/03/24 17:57 Dose: Infused Documented By: Admin: 11/03/24 16:50 Dose: 999 mls/hr Documented By: ABIODUN Amiodarone HCl/Dextrose (Nexterone / D5w) 150 mg in 100 mls @ 600 mls/hr IV NOW STA Stop: 11/03/24 17:43 Last Infusion: 11/03/24 18:04 Dose: Infused Documented By: ABIODUN Co-signed By: GINI Admin: 11/03/24 17:48 Dose: 600 mls/hr Documented By: ABIODUN Co-signed By: GINI Magnesium Sulfate/Dextrose (Magnesium Sulfate / D5w) 1 gm in 100 mls @ 50 mls/hr IV ONE ONE Stop: 11/03/24 20:29 Last Infusion: 11/03/24 21:00 Dose: Infused Documented By: Admin: 11/03/24 18:52 Dose: 50 mls/hr Documented By: GINI Metoprolol Tartrate (Metoprolol Tartrate 1 Mg/Ml Vial) 2.5 mg IV NOW STA Stop: 11/03/24 18:30 Last Admin: 11/03/24 18:45 Dose: 2.5 mg Documented By: GINI Metoprolol Tartrate (Metoprolol Tartrate 1 Mg/Ml Vial) 2.5 mg IV NOW STA Stop: 11/03/24 18:47 Last Admin: 11/03/24 18:55 Dose: 2.5 mg Documented By: GINI Miscellaneous (Stat Iv Infusion Titration Per Protocol) 1 each N/A NOW STA Stop: 11/03/24 17:35 Last Admin: 11/03/24 19:11 Dose: Not Given Documented By: FELTON Ondansetron HCl (Ondansetron Inj 2 Mg/Ml 2 Ml Vial) Confirm Administered Dose 4 mg .ROUTE .STK-MED ONE Stop: 11/03/24 19:48 Last Admin: 11/03/24 19:53 Dose: Not Given Documented By: FELTNO Ondansetron HCl (Ondansetron Inj 2 Mg/Ml 2 Ml Vial) 4 mg IV NOW STA Stop: 11/03/24 19:53 Last Admin: 11/03/24 19:50 Dose: 4 mg Documented By: FELTON Imaging Data Radiologist's Impression: Chest X-Ray 11/03/24 16:33 Chest radiograph, one view History: Chest pain Comparison: October 04, 2024 Findings: Lungs: Appearance of mild diffuse pulmonary edema likely related to CHF. No pulmonary mass density. Pleural space: Unremarkable. No pneumothorax or pleural fluid. Heart: Cardiomegaly. Mediastinum: Unremarkable. Normal mediastinal contour. Bones/joints: No acute findings. Tubes, lines and devices: Stable implanted cardiac pacer. IMPRESSION: Cardiomegaly with evidence of early CHF, similar to prior. Electronically signed by Regis Akbar 11-03-2024 5:26 PM Discharge Plan Visit Data Chief Complaint: Syncope (Near Syncope) Stated Complaint: SYNCOPE ED Provider: Luis Fernando Shah Discharge Problem: Ventricular tachycardia Patient Disposition: Admitted As Inpatient Discharge Instructions Interventions: ED Discharge Assessment Last Done: 11/03/24 20:35
[2024-11-03 16:43] LABS: Basophils # (auto) 0.08 K/uL (0.00-0.20); Basophils % (auto) 0.9 %; Eosinophils # (auto) 0.27 K/uL (0.00-0.50); Eosinophils % (auto) 3.2 %; Hemoglobin 9.7 g/dl (12.0-16.0); Immature Granulocytes # (auto) 0.02 K/uL (0.01-0.20); Immature Granulocytes % (auto) 0.2 %; Lymphocytes # (auto) 1.76 K/uL (1.20-3.40); Lymphocytes % (auto) 20.6 %; Mean Corpuscular Hemoglobin 31.3 pg (25.0-34.0); Mean Corpuscular Hgb Conc 32.3 g/dL (32.0-36.0); Mean Corpuscular Volume 96.8 fL (80.0-100.0); Mean Platelet Volume 11.4 fL (9.4-12.4); Monocytes # (auto) 0.76 K/uL (0.11-0.59); Monocytes % (auto) 8.9 %; Neutrophils # (auto) 5.65 K/uL (1.40-6.50); Neutrophils % (auto) 66.2 %; Platelet Count 170 K/uL (130-400); RDW Coefficient of Variation 14.8 % (11.5-14.5); RDW Standard Deviation 53.1 fL (36.4-46.3); White Blood Count 8.54 K/ul (4.8-10.8)
[2024-11-03] MEDS: SODIUM CHLORIDE 0.9% 500 ML IV ONE (16:50)
[2024-11-03 16:57] LABS: Prothrombin Time 10.8 Seconds (9.0-12.0)
--- NOTE | 2024-11-03 17:26 | XRay Report ---
Chest radiograph, one view History: Chest pain Comparison: October 04, 2024 Findings: Lungs: Appearance of mild diffuse pulmonary edema likely related to CHF. No pulmonary mass density. Pleural space: Unremarkable. No pneumothorax or pleural fluid. Heart: Cardiomegaly. Mediastinum: Unremarkable. Normal mediastinal contour. Bones/joints: No acute findings. Tubes, lines and devices: Stable implanted cardiac pacer. IMPRESSION: Cardiomegaly with evidence of early CHF, similar to prior. Electronically signed by Regis Akbar 11-03-2024 5:26 PM
[2024-11-03] MEDS ORDERED: 0.2 MICRON FILTER SET 1 EACH IV STA (17:34)
[2024-11-03 17:38] LABS: Troponin I High Sensitivity 16.1 pg/ml (0-14)
[2024-11-03] MEDS: AMIODARONE / D5W 150 MG/100 ML BAG IV STA (17:48)
[2024-11-03 17:53] LABS: Albumin Level 4.1 gm/dl (3.4-5.0); Bilirubin,Total 0.5 mg/dl (0.2-1.0); Calcium 9.8 mg/dl (8.6-10.3); Potassium 3.8 mmol/L (3.5-5.1)
[2024-11-03 17:59] LABS: Albumin Globulin Ratio 1.3 (0.9-2); Creatinine Clr Calc Pharmacy 24.5 ml/min; Globulin 3.1 gm/dl (2.5-4.0); Total Protein 7.2 gm/dl (6.0-8.3)
[2024-11-03] MEDS: AMIODARONE / D5W 360 MG/200 ML BAG IV ONE (18:05)
[2024-11-03] MEDS: METOPROLOL TARTRATE 1 MG/ML VIAL IV STA ×2 (18:45→18:55)
[2024-11-03 18:46] LABS: Thyroid Stimulating Hormone 3.245 uIu/ml (0.300-4.500)
[2024-11-03] MEDS: MAGNESIUM SULFATE / D5W 1 GM/100 ML BAG IV ONE (18:52)
--- NOTE | 2024-11-03 19:00 | History & Physical Report ---
Date of Service November 03, 2024 Assessment & Plan Plan Pt is a 63-year-old female with past medical history significant for type 2 diabetes, diabetic polyneuropathy, end-stage renal disease on hemodialysis, dyslipidemia, hypothyroidism, diabetic gastroparesis, diabetic retinopathy, obstructive sleep apnea on CPAP, chronic diastolic CHF, sick sinus syndrome, status post pacemaker, paroxysmal atrial tachycardia, pulmonary hypertension, hypertension, GERD, morbid obesity, status post gastric bypass, depression, history of endometrial cancer, CHIDI inhibitor intolerance, recurrent ventral incisional hernia presenting with con History of Present Illness Primary Care Provider: Luis Fernando Rojas MD Allergies Allergy/AdvReac Type Severity Reaction Status Date / Time CHIDI Inhibitors AdvReac Intermediate COUGH Verified 11/03/24 17:19 Home Medications Medication Instructions Recorded Confirmed Type amlodipine 5 mg tablet 5 mg PO QAM 30 days #30 tabs 01/16/24 11/03/24 Rx aspirin 81 mg chewable tablet 81 mg PO HS 30 days #30 tabs 01/16/24 11/03/24 Rx calcium acetate 667 mg tablet 2,001 mg (3 x 667 mg) PO TIDM 30 01/16/24 11/03/24 Rx days #90 tabs citalopram 40 mg tablet 20 mg (1/2 x 40 mg) PO QAM 30 days 01/16/24 11/03/24 Rx #30 tabs cyanocobalamin (vitamin B-12) 1,000 mcg IM Q90D 30 days #1 mL 01/16/24 11/03/24 Rx 1,000 mcg/mL injection solution melatonin 10 mg tablet 10 mg PO HS 30 days #30 tabs 01/16/24 11/03/24 Rx insulin lispro 100 unit/mL See Rx Instructions .Route .COMPLEX 07/07/24 11/03/24 History subcutaneous solution nebulizer machine #1 ea 07/09/24 Rx acetaminophen 325 mg tablet 650 mg PO Q6H PRN PAIN/FEVER 10/04/24 11/03/24 History (Tylenol) albuterol sulfate 0.63 mg/3 mL 0.63 mg inhalation Q6H PRN Wheezing 10/04/24 11/03/24 History solution for nebulization atorvastatin 40 mg tablet 40 mg PO QPM 10/04/24 11/03/24 History biotin 10 mg tablet 10 mg PO DAILY 10/04/24 11/03/24 History calcium 600 mg (as 1 tab PO BID ##0 10/04/24 11/03/24 History carbonate)-vitamin D3 5 mcg (200 unit) tablet cholecalciferol (vitamin D3) 125 125 mcg PO DAILY 10/04/24 11/03/24 History mcg (5,000 unit) tablet (Vitamin D3) colestipol 1 gram tablet 2 g PO QDL PRN Diarrhea 10/04/24 11/03/24 History diclofenac sodium 1 % topical gel 2 g topical TID PRN Pain 10/04/24 11/03/24 History gabapentin 300 mg capsule 300 mg PO HS 10/04/24 11/03/24 History insulin glargine 100 unit/mL (3 10 unit subcut QAM 10/04/24 11/03/24 History mL) subcutaneous pen (Lantus Solostar U-100 Insulin) levothyroxine 100 mcg tablet 100 mcg PO DAILYBB 10/04/24 11/03/24 History nitroglycerin 0.4 mg sublingual 0.4 mg sublingual DIRECTED PRN 10/04/24 11/03/24 History tablet (Nitrostat) CHEST PAIN omeprazole 20 mg capsule,delayed 20 mg PO DAILY 10/04/24 11/03/24 History release pediatric multivitamin 1 tab PO BID 10/04/24 11/03/24 History tramadol 50 mg tablet 50 mg PO Q4H PRN Pain 10/04/24 11/03/24 History vit B complx, C-iron 8 mg-folic 1 tab PO DAILY 10/04/24 11/03/24 History acid 800 mcg-D3 1,000 unit-zinc tablet (ProRenal) midodrine 5 mg tablet 5 mg PO DIRECTED 11/03/24 11/03/24 History Past Med/Surg History Problem List Aortic stenosis, mild Mild mitral stenosis Abnormal urine findings Ventricular tachycardia Dialysis patient (Acute) Dysrhythmia (Acute) Rhinovirus infection (Acute) Syncope (Acute) Hypertension Rhinovirus infection (Acute) Hypoxia (Acute) Hypo-osmolar hyponatremia Insulin-requiring or dependent type II diabetes mellitus Acute on chronic heart failure with preserved ejection fraction Volume overload Acute bronchitis due to Rhinovirus Acute hypoxic respiratory failure Hypotension of hemodialysis Hyperkalemia Fracture of right tibial plateau Closed right tibial fracture (Acute) ESRD (end stage renal disease) on dialysis (Acute) Fall (Acute) Colon polyps S/P knee surgery (Chronic) DVT prophylaxis Anxiety Anemia Upper GI bleed (Acute) Hematemesis with nausea (Acute) Encounter for pre-operative examination Gastric ulcer COVID-19 (Acute) Acute dyspnea (Acute) Bilateral leg weakness (Acute) Anemia (Acute) Ambulatory dysfunction (Acute) Back pain (Acute) Tremor Obesity ESRD (end stage renal disease) on dialysis (Acute) Mon/Fri/Fri at [facility] in [place]. Pacemaker SSS Medtr[employer] follows with dr rosalie Wilks diastolic CHF (congestive heart failure) Depression Hypothyroidism SSS (sick sinus syndrome) Pt admitted for elective pacemaker due to SSS. She underwent procedure without any complications. Monitored over night and discharged home. MINISTERIO on CPAP (Chronic) MDD (major depressive disorder) (Chronic) HLD (hyperlipidemia) (Chronic) HTN (hypertension) (Chronic) Diabetes mellitus, type II (Chronic) IDDM H/O esophagogastroduodenoscopy (Chronic) Medical History ESRD (end stage renal disease) on dialysis Peripheral neuropathy bilateral legs/feet Anxiety History of anesthesia reaction woke up during hysterectomy in 1995 Hiatal hernia Osteoarthritis Degenerative disc disease Chronic back pain Post traumatic stress disorder History of anesthesia reaction when had port inserted needed more medication and could feel everything GERD (gastroesophageal reflux disease) Surgical History History of colonoscopy S/P left knee arthroscopy S/P right knee arthroscopy H/O radical excision of skin lesion melanoma S/P cardiac pacemaker procedure medtronic device, last checked ~2 months ago[address] Follow[address] with Dr Stevenson S/P arteriovenous (AV) fistula creation Right arm History of vitrectomy History of cataract surgery bilateral History of adenoidectomy History of tonsillectomy H/O umbilical hernia repair open (~November 2022 [facility]) --> went to [facility] for rehab therapy for about 2 weeks. S/P dialysis catheter insertion right side of chest (since removed) S/P [place]-BSO H/O hernia repair Hx of gastric bypass History of cholecystectomy Hx of cardiac cath "2012, negative for CAD " Family History Other Colonic polyp GERD (gastroesophageal reflux disease) No family history of adverse response to anesthesia Social History Smoking Status: Never smoker Second Hand Exposure: No; Do You Dip or Chew Tobacco: No; Hx Alcohol Use: No Hx Substance Use: No Preferred Language: Citizen [place] Communication Ability: Effective Tungsten Refiner Required: No Beliefs That Will Affect Care: None marital status: Current Living Situation: Spouse Current Living Situation Comment: lives with Feels Safe at Home: Yes Assistive Devices: None Results & Data Results & Data Vital Signs (Past 12 Hours) Vital Signs Temp Pulse Pulse Resp BP BP Pulse Ox 11/03/24 18:45 64 152/78 H 11/03/24 18:27 65 24 154/75 H 93 11/03/24 18:15 65 11/03/24 18:09 67 25 H 122/65 94 11/03/24 16:53 71 14 98 11/03/24 16:52 73 24 145/75 H 98 11/03/24 16:02 71 11/03/24 15:52 36.8 C 69 20 145/75 H 92 O2 Del Method 11/03/24 18:45 11/03/24 18:27 Room Air 11/03/24 18:15 11/03/24 18:09 Room Air 11/03/24 16:53 Room Air 11/03/24 16:52 Room Air 11/03/24 16:02 11/03/24 15:52 Room Air
[2024-11-03] MEDS: AMIODARONE IV BOLUS & DRIP IV STA (19:11)
[2024-11-03] MEDS: STAT IV Infusion **Titration per Protocol STA (19:11)
--- NOTE | 2024-11-03 19:20 | Consultation ---
Date of Consultation November 03, 2024 History of Present Illness Allergies Allergy/AdvReac Type Severity Reaction Status Date / Time CHIDI Inhibitors AdvReac Intermediate COUGH Verified 11/03/24 17:19 Home Medications Medication Instructions Recorded Confirmed Type amlodipine 5 mg tablet 5 mg PO QAM 30 days #30 tabs 01/16/24 11/03/24 Rx aspirin 81 mg chewable tablet 81 mg PO HS 30 days #30 tabs 01/16/24 11/03/24 Rx calcium acetate 667 mg tablet 2,001 mg (3 x 667 mg) PO TIDM 30 01/16/24 11/03/24 Rx days #90 tabs citalopram 40 mg tablet 20 mg (1/2 x 40 mg) PO QAM 30 days 01/16/24 11/03/24 Rx #30 tabs cyanocobalamin (vitamin B-12) 1,000 mcg IM Q90D 30 days #1 mL 01/16/24 11/03/24 Rx 1,000 mcg/mL injection solution melatonin 10 mg tablet 10 mg PO HS 30 days #30 tabs 01/16/24 11/03/24 Rx insulin lispro 100 unit/mL See Rx Instructions .Route .COMPLEX 07/07/24 11/03/24 History subcutaneous solution nebulizer machine #1 ea 07/09/24 Rx acetaminophen 325 mg tablet 650 mg PO Q6H PRN PAIN/FEVER 10/04/24 11/03/24 History (Tylenol) albuterol sulfate 0.63 mg/3 mL 0.63 mg inhalation Q6H PRN Wheezing 10/04/24 11/03/24 History solution for nebulization atorvastatin 40 mg tablet 40 mg PO QPM 10/04/24 11/03/24 History biotin 10 mg tablet 10 mg PO DAILY 10/04/24 11/03/24 History calcium 600 mg (as 1 tab PO BID ##0 10/04/24 11/03/24 History carbonate)-vitamin D3 5 mcg (200 unit) tablet cholecalciferol (vitamin D3) 125 125 mcg PO DAILY 10/04/24 11/03/24 History mcg (5,000 unit) tablet (Vitamin D3) colestipol 1 gram tablet 2 g PO QDL PRN Diarrhea 10/04/24 11/03/24 History diclofenac sodium 1 % topical gel 2 g topical TID PRN Pain 10/04/24 11/03/24 History gabapentin 300 mg capsule 300 mg PO HS 10/04/24 11/03/24 History insulin glargine 100 unit/mL (3 10 unit subcut QAM 10/04/24 11/03/24 History mL) subcutaneous pen (Lantus Solostar U-100 Insulin) levothyroxine 100 mcg tablet 100 mcg PO DAILYBB 10/04/24 11/03/24 History nitroglycerin 0.4 mg sublingual 0.4 mg sublingual DIRECTED PRN 10/04/24 11/03/24 History tablet (Nitrostat) CHEST PAIN omeprazole 20 mg capsule,delayed 20 mg PO DAILY 10/04/24 11/03/24 History release pediatric multivitamin 1 tab PO BID 10/04/24 11/03/24 History tramadol 50 mg tablet 50 mg PO Q4H PRN Pain 10/04/24 11/03/24 History vit B complx, C-iron 8 mg-folic 1 tab PO DAILY 10/04/24 11/03/24 History acid 800 mcg-D3 1,000 unit-zinc tablet (ProRenal) midodrine 5 mg tablet 5 mg PO DIRECTED 11/03/24 11/03/24 History Patient History Medical History ESRD (end stage renal disease) on dialysis Peripheral neuropathy bilateral legs/feet Anxiety History of anesthesia reaction woke up during hysterectomy in 1995 Hiatal hernia Osteoarthritis Degenerative disc disease Chronic back pain Post traumatic stress disorder History of anesthesia reaction when had port inserted needed more medication and could feel everything GERD (gastroesophageal reflux disease) Surgical History History of colonoscopy S/P left knee arthroscopy S/P right knee arthroscopy H/O radical excision of skin lesion melanoma S/P cardiac pacemaker procedure medtronic device, last checked ~2 months ago[address] with Dr Stevenson S/P arteriovenous (AV) fistula creation Right arm History of vitrectomy History of cataract surgery bilateral History of adenoidectomy History of tonsillectomy H/O umbilical hernia repair open (~November 2022 [facility]) --> went to [facility] for rehab therapy for about 2 weeks. S/P dialysis catheter insertion right side of chest (since removed) S/P [place]-BSO H/O hernia repair Hx of gastric bypass History of cholecystectomy Hx of cardiac cath "2012, negative for CAD " Family History Other Colonic polyp GERD (gastroesophageal reflux disease) No family history of adverse response to anesthesia Social History Smoking Status: Never smoker Second Hand Exposure: No; Do You Dip or Chew Tobacco: No; Hx Alcohol Use: No Hx Substance Use: No Preferred Language: Slovenian Communication Ability: Effective Apprentice/Lineman Required: No Beliefs That Will Affect Care: None marital status: Current Living Situation: Spouse Current Living Situation Comment: lives with Feels Safe at Home: Yes Assistive Devices: None Results & Data Vital Signs (Past 12 Hours) Vital Signs Temp Pulse Pulse Resp BP BP Pulse Ox 11/03/24 19:18 81 174/119 H 11/03/24 19:15 82 174/119 H 11/03/24 18:55 88 158/95 H 11/03/24 18:45 64 152/78 H 11/03/24 18:27 65 24 154/75 H 93 11/03/24 18:15 65 11/03/24 18:09 67 25 H 122/65 94 11/03/24 16:53 71 14 98 11/03/24 16:52 73 24 145/75 H 98 11/03/24 16:02 71 11/03/24 15:52 36.8 C 69 20 145/75 H 92 O2 Del Method 11/03/24 19:18 11/03/24 19:15 11/03/24 18:55 11/03/24 18:45 11/03/24 18:27 Room Air 11/03/24 18:15 11/03/24 18:09 Room Air 11/03/24 16:53 Room Air 11/03/24 16:52 Room Air 11/03/24 16:02 11/03/24 15:52 Room Air
[2024-11-03] MEDS: ONDANSETRON INJ 2 MG/ML 2 ML VIAL IV STA (19:50)
[2024-11-03] MEDS: ONDANSETRON INJ 2 MG/ML 2 ML VIAL ONE (19:53)
--- NOTE | 2024-11-03 20:22 | Cardiology Consultation ---
Date of Consultation November 03, 2024 Assessment & Plan (1) Ventricular tachycardia: * The patient is typically not on a beta-griselda due to hypotension that precludes dialysis therapy * She is on midodrine for blood pressure support * Episode took place today after recovering from dialysis, it was consistent with her previous episodes that prompted the recent placement of her AICD * As noted she had an appropriate AICD discharge at 1436 today before coming to the hospital and a second AICD discharge appropriately while in the emergency department while is at the bedside. * Her second AICD discharge took place while she was receiving an amiodarone infusion. She was having additional short runs of ventricular arrhythmia leading up to that AICD discharge with a sensation that she was about to pass out. * Symptoms improved after she received her second dose of 2.5 mg of IV metoprolol and IV magnesium was initiated * At present she is mentating well and is hemodynamically stable. * She is to be admitted to the intensive care unit at [facility] for further close monitoring and treatment. * Her AICD was interrogated with the assistance of Dr Ricci of , and the basal rate of her pacemaker activity was changed from 60 bpm to 80 bpm to help suppress ventricular arrhythmia. The sensitivity of her device was increased to allow for more rapid treatment. * Continue IV amiodarone for now. (2) Mitral regurgitation and mitral stenosis: * Patient's volume status appears stable without pulmonary edema * Increase in the basal pacemaker rate may exacerbate her moderate mitral stenosis * Repeat echocardiogram will be planned for tomorrow I spent a total of 90 minutes on the date of service in preparation, delivery, and documentation of the Critical Care provided to this patient in the emergency department, excluding any time spent in the performance of separately billed services. Case discussed at length with Dr Shah, Dr Rivera, and Dr Oswald for the purpose of coordination of care. Case discussed with the patient's , Zhen, and her java j2ee lead and questions answered to Zhen's satisfaction. History of Present Illness History of Present Illness Candi Watts is a 63 year old female seen in emergency cardiology consultation in the emergency department per the request of of Miguel for the evaluation of ventricular tachycardia and AICD discharge. The patient states that after her hemodialysis session today she had sensation of near syncope. After multiple episodes she presented to the emergency department. Her Medtronic AICD was interrogated and she was found to have an appropriate AICD shock that took place today at 1436 that correlated with her symptoms and was associated with an episode of rapid ventricular tachycardia in the ventricular fibrillation treatment zone. IV amiodarone was initiated. She had a repeat tachycardic event with appearance of polymorphic ventricular tachycardia while on amiodarone that resolved on its own. Shortly after my arrival on the bedside she had another prolonged episode with an AICD shock that I witnessed which was associated with a patient transiently losing consciousness. She spontaneously regained circulation and consciousness and no CPR was administered. The patient received IV metoprolol 2.5 mg followed by another dose of 2.5 mg tablets later and IV magnesium was subsequently administered. At the time of when the second dose of IV metoprolol was administered and when the magnesium was started the patient's runs of tachycardia abated. The patient's recent history is notable for presentation to this institution in September, after having 5-6 syncopal episodes over an interval of several weeks. Interrogation of her pacemaker revealed that she was having episodes of nonsustained ventricular tachycardia. She was transferred to [facility] and underwent invasive coronary angiography that revealed nonobstructive CAD with a 50% mid LAD lesion that was found to not be hemodynamically significant by fractional flow reserve and therefore revascularization was not performed. An echocardiogram performed at [facility] on 10/06/2024 confirmed normal left ventricular systolic function with LVEF in the range of 55 to 59%. She subsequently underwent upgrade to her AICD device on 10/07/2024 at [facility]. Postprocedure she developed hypoxic respiratory failure with pattern of flash pulmonary edema. Transesophageal echocardiogram performed at [facility] on 10/12/2024 revealed normal LVEF in the range of 55 to 59%, severe mitral annular calcification was noted. Moderate mitral stenosis was present. A moderate sized cleft in the posterior mitral valve leaflet was noted with severe mitral regurgitation. Her mitral valve disease had been discussed in a multi disciplinary fashion while at [facility]. The mitral valve regurgitation was not amenable to percutaneous [id number] repair (mitral valve clip) due to the underlying mitral valve stenosis. She was seen in consultation by CT surgery, but felt to be at high risk for mitral valve surgery although it was felt that that could be entertained in the future if she does not do well with conservative therapy. Cardiac Problems: SSS s/p DCP, BiV ICD Upgrade 09/2024 for syncope/NSVT (Patient has the original right atrial lead and right ventricular pacemaker lead from her initial Medtronic device, a right ventricular AICD lead was added and her ventricular pacing is programmed to go from the AICD lead to the RV apical pacer lead) PAT Severe MR with MS Mild AI/ Chronic Diastolic CHF, NYHA Class III ESRD on HD HTN HLD MINISTERIO on CPAP DM II Anemia NSVT Pulmonary HTN Allergies Allergy/AdvReac Type Severity Reaction Status Date / Time CHIDI Inhibitors AdvReac Intermediate COUGH Verified 11/03/24 17:19 Home Medications Medication Instructions Recorded Confirmed Type amlodipine 5 mg tablet 5 mg PO QAM 30 days #30 tabs 01/16/24 11/03/24 Rx aspirin 81 mg chewable tablet 81 mg PO HS 30 days #30 tabs 01/16/24 11/03/24 Rx calcium acetate 667 mg tablet 2,001 mg (3 x 667 mg) PO TIDM 30 01/16/24 11/03/24 Rx days #90 tabs citalopram 40 mg tablet 20 mg (1/2 x 40 mg) PO QAM 30 days 01/16/24 11/03/24 Rx #30 tabs cyanocobalamin (vitamin B-12) 1,000 mcg IM Q90D 30 days #1 mL 01/16/24 11/03/24 Rx 1,000 mcg/mL injection solution melatonin 10 mg tablet 10 mg PO HS 30 days #30 tabs 01/16/24 11/03/24 Rx insulin lispro 100 unit/mL See Rx Instructions .Route .COMPLEX 07/07/24 11/03/24 History subcutaneous solution nebulizer machine #1 ea 07/09/24 Rx acetaminophen 325 mg tablet 650 mg PO Q6H PRN PAIN/FEVER 10/04/24 11/03/24 History (Tylenol) albuterol sulfate 0.63 mg/3 mL 0.63 mg inhalation Q6H PRN Wheezing 10/04/24 11/03/24 History solution for nebulization atorvastatin 40 mg tablet 40 mg PO QPM 10/04/24 11/03/24 History biotin 10 mg tablet 10 mg PO DAILY 10/04/24 11/03/24 History calcium 600 mg (as 1 tab PO BID ##0 10/04/24 11/03/24 History carbonate)-vitamin D3 5 mcg (200 unit) tablet cholecalciferol (vitamin D3) 125 125 mcg PO DAILY 10/04/24 11/03/24 History mcg (5,000 unit) tablet (Vitamin D3) colestipol 1 gram tablet 2 g PO QDL PRN Diarrhea 10/04/24 11/03/24 History diclofenac sodium 1 % topical gel 2 g topical TID PRN Pain 10/04/24 11/03/24 History gabapentin 300 mg capsule 300 mg PO HS 10/04/24 11/03/24 History insulin glargine 100 unit/mL (3 10 unit subcut QAM 10/04/24 11/03/24 History mL) subcutaneous pen (Lantus Solostar U-100 Insulin) levothyroxine 100 mcg tablet 100 mcg PO DAILYBB 10/04/24 11/03/24 History nitroglycerin 0.4 mg sublingual 0.4 mg sublingual DIRECTED PRN 10/04/24 11/03/24 History tablet (Nitrostat) CHEST PAIN omeprazole 20 mg capsule,delayed 20 mg PO DAILY 10/04/24 11/03/24 History release pediatric multivitamin 1 tab PO BID 10/04/24 11/03/24 History tramadol 50 mg tablet 50 mg PO Q4H PRN Pain 10/04/24 11/03/24 History vit B complx, C-iron 8 mg-folic 1 tab PO DAILY 10/04/24 11/03/24 History acid 800 mcg-D3 1,000 unit-zinc tablet (ProRenal) midodrine 5 mg tablet 5 mg PO DIRECTED 11/03/24 11/03/24 History Patient History Medical History ESRD (end stage renal disease) on dialysis Peripheral neuropathy bilateral legs/feet Anxiety History of anesthesia reaction woke up during hysterectomy in 1995 Hiatal hernia Osteoarthritis Degenerative disc disease Chronic back pain Post traumatic stress disorder History of anesthesia reaction when had port inserted needed more medication and could feel everything GERD (gastroesophageal reflux disease) Surgical History History of colonoscopy S/P left knee arthroscopy S/P right knee arthroscopy H/O radical excision of skin lesion melanoma S/P cardiac pacemaker procedure medtronic device, last checked ~2 months ago. Follows with Dr Stevenson S/P arteriovenous (AV) fistula creation Right arm History of vitrectomy History of cataract surgery bilateral History of adenoidectomy History of tonsillectomy H/O umbilical hernia repair open (~November 2022 Shaun Glynn) --> went to [facility] for rehab therapy for about 2 weeks. S/P dialysis catheter insertion right side of chest (since removed) S/P [place]-BSO H/O hernia repair Hx of gastric bypass History of cholecystectomy Hx of cardiac cath "2012, negative for CAD " Family History Other Colonic polyp GERD (gastroesophageal reflux disease) No family history of adverse response to anesthesia Social History Smoking Status: Never smoker Second Hand Exposure: No; Do You Dip or Chew Tobacco: No; Hx Alcohol Use: No Hx Substance Use: No Preferred Language: Hebrew Communication Ability: Effective Manager Intensive Care Required: No Beliefs That Will Affect Care: None marital status: Current Living Situation: Spouse Current Living Situation Comment: lives with Feels Safe at Home: Yes Assistive Devices: None Review of Systems Review of Systems: All systems reviewed & are unremarkable except as noted in HPI & below Physical Exam Physical Exam: General: Acute distress noted at time of initial evaluation, with improvement over the duration of my assessment Eyes: conjunctiva are pink and non-injected, sclera clear Neck: normal jugular venous pulse, no hepatojugular reflux Chest: normal shape and normal respiratory effort Lungs: clear to auscultation and percussion Cardiac Exam: - regular heart sounds, 1/6 diastolic murmur, no jugular venous distention Abdomen: abdomen soft, non-tender, no abnormal masses and no hepatosplenomegaly Musculoskeletal: no gait disturbance, no weakness Extremities: no edema and no cyanosis Neuro:awake, conversant, follows commands, no focal motor deficits Psych: appropriate affect and insight. Results & Data Vital Signs (Past 12 Hours) Vital Signs Temp Pulse Pulse Resp BP BP Pulse Ox 11/03/24 20:00 80 17 159/79 H 98 11/03/24 19:45 80 16 166/78 H 96 11/03/24 19:31 80 21 169/83 H 98 11/03/24 19:30 80 13 169/83 H 98 11/03/24 19:21 88 L 11/03/24 19:18 81 174/119 H 11/03/24 19:15 66 19 174/119 H 95 11/03/24 19:15 82 174/119 H 11/03/24 19:03 83 20 158/95 H 94 11/03/24 18:55 88 158/95 H 11/03/24 18:48 90 11/03/24 18:45 64 152/78 H 11/03/24 18:27 65 24 154/75 H 93 11/03/24 18:15 65 11/03/24 18:09 67 25 H 122/65 94 11/03/24 16:53 71 14 98 11/03/24 16:52 73 24 145/75 H 98 11/03/24 16:02 71 11/03/24 15:52 36.8 C 69 20 145/75 H 92 O2 Del Method O2 Flow Rate 11/03/24 20:00 Nasal Cannula 2 11/03/24 19:45 Nasal Cannula 2 11/03/24 19:31 Nasal Cannula 2 11/03/24 19:30 Nasal Cannula 2 11/03/24 19:21 Nasal Cannula 0 11/03/24 19:18 11/03/24 19:15 Room Air 11/03/24 19:15 11/03/24 19:03 Room Air 11/03/24 18:55 11/03/24 18:48 11/03/24 18:45 11/03/24 18:27 Room Air 11/03/24 18:15 11/03/24 18:09 Room Air 11/03/24 16:53 Room Air 11/03/24 16:52 Room Air 11/03/24 16:02 11/03/24 15:52 Room Air Laboratory Results Cardiac Enzymes 11/03/24 Range/Units 16:09 AST 27 (13-39) U/L Troponin I High Sens 16.1 H (0-14) pg/ml Coagulation 11/03/24 Range/Units 16:09 PT 10.8 (9.0-12.0) Seconds CBC 11/03/24 Range/Units 16:09 WBC 8.54 (4.8-10.8) K/ul RBC 3.10 L (4.20-5.40) M/uL Hgb 9.7 L (12.0-16.0) g/dl Hct 30.0 L (37.0-47.0) % Plt Count 170 (130-400) K/uL Neut # (Auto) 5.65 (1.40-6.50) K/uL Lymph # (Auto) 1.76 (1.20-3.40) K/uL [place] # (Auto) 0.76 H (0.11-0.59) K/uL Eos # (Auto) 0.27 (0.00-0.50) K/uL Baso # (Auto) 0.08 (0.00-0.20) K/uL Comprehensive Metabolic Panel 11/03/24 Range/Units 16:09 Sodium 138 (136-145) mmol/L Potassium 3.8 (3.5-5.1) mmol/L Chloride 92 L (98-107) mmol/L Carbon Dioxide 38 H (21-32) mmol/L BUN 13 (6-23) mg/dl Creatinine 2.62 H (0.6-1.2) mg/dl Glucose 267 H (70-99(Fasting)) mg/dl Calcium 9.8 (8.6-10.3) mg/dl AST 27 (13-39) U/L ALT 21 (7-52) U/L Alkaline Phosphatase 128 H (34-104) U/L Total Protein 7.2 (6.0-8.3) gm/dl Albumin 4.1 (3.4-5.0) gm/dl Intake and Output 11/03/24 11/03/24 11/03/24 06:59 14:59 22:59 Intake Total 600 / 600 Balance 600 / 600 Intake: IV 600 / 600 Amiodarone / D5w 150 mg In 100 100 / 100 ml @ 600 mls/hr IV NOW STA Rx#: [id number] Sodium Chloride 0.9% 500 ml @ 500 / 500 999 mls/hr IV .Q31M ONE Rx#: [id number] Other: Weight 102.9 kg Weight Measurement Method Built in [facility] Patient Weight 11/04/24 06:59 Weight 102.9 kg Diagnostic Findings EKG performed at 1549 interpreted independently: Sinus rhythm at 71 bpm with ventricular paced QRS complexes (2) Mitral regurgitation and mitral stenosis Cardiac valve disease etiology: nonrheumatic Qualified Code(s): I34.2 - Nonrheumatic mitral (valve) stenosis; I34.0 - Nonrheumatic mitral (valve) insufficiency
--- NOTE | 2024-11-03 20:50 | Critical Care Consultation ---
Date of Consultation November 03, 2024 Assessment & Plan (1) Ventricular tachycardia: (2) Mitral regurgitation and mitral stenosis: (3) ESRD (end stage renal disease) on dialysis: (4) Pacemaker: (5) MINISTERIO on CPAP: (6) Diabetes mellitus, type II: Plan Reason Critically Ill: 63 YOF requiring defibrilation by her AICD x2 today. To the ICU for continued antiarrhythmic therapy, telemetry and hemodynamic monitoring. Neuro - No acute needs CAM ICU: NEGATIVE Cardiac - V-tach, Anti-arrhythmic Therapy: Hx of HTN, Mitral regurge with stenosis, HfpEF, - patient had multiple episodes today of VT/torsades- she was loaded with amiodarone and BB therapy as well as magnesium- has not had further ectopy or arrythmia since. - Had her AICD re-programmed by Cards/EP- See separate note - Continue with amiodarone - If refractory arrhythmia this evening consider esmolol with vasopressors if needed to maintain perfusion - As she has just had cath without occlusive disease a few weeks ago- doubt cause is ischemic - Most likely cause is electrolyte shifts following dialysis - Will remain on continuous monitoring as well as connected to defibrillator - magnet is available and on hand Respiratory - MINISTERIO - CPAP of 11cm at night - continue GI - No acute needs - N/V- received 1 dose of Zofran in ER- hold on further - provide PPI - NPO with sips and chips for tonight and clears in morning until proven stable without plans for any interventions RENAL/LYTES - ESRD - On dialysis MWF - follow electrolytes- goal MG > 2.0, K ~4.0 - No acute needs ENDO - DMII - ICU hyperglycemic protocol - she already took her basal insulin for the day HEME - NO acute needs ID - NO concern at this time for infective etiology LINES/IV ACCESS - PIV x2 Continue use of these lines DVT PROPHYLAXIS - SCDS, Heparin 5000 units sub q DISPO: ICU until hemodynamics and electrically proven stable I have personally spent 40 minutes of critical care time in the direct management of this patient. This is a life/limb threatening event. This includes time spent evaluating patient, direct bedside care, chart review, placing orders, interpretation of diagnostic studies, discussion with consultants, patient, and family members, as well as other required patient management activities. This time is exclusive of all separately billable procedures, and teaching time and separate from and in addition to any other critical care service time. Thank you for allowing us to participate in the care of this patient. Please refer to my attending physician's documentation for any further recommendations. Supervising Physician Co-Signing Physician Notes Discussed this case with Dr. Stevenson via telephone while patient was in the emergency department. History of Present Illness Reason for Consultation: Ventricular dysrhythmia requiring AICD to discharge Requesting Physician: Rosa Rivera Attending Physician: Rosa Rivera History of Present Illness 63YOF with medical history of: ESRD on Dialysis (MWF), Sick sinus syndrome s/p Pacemaker, Ventricular arrhythmia s/p AICD (10/12), Mitral Stenosis, HFpEF. Patient reported to the ER today for "passing out". She reports that she went to dialysis today and completed her full treatment of 3 hours and 45 minutes with ~ 1 L removed. She reports being asymptomatic after dialysis and went home, took a nap around 1430 and was suddenly awoken- she did not feel any electrical shock at that time, just reports being felt like she was suddenly awoken. Her and her report 2-3 other small episodes of her feeling like she was going to pass out. She was then brought to the ER. While in the ER, the patient syncopized noting torsades on the monitor- she received a "shock" from her AICD. She was initiated on amiodarone with bolus, she had another repeat episode of polymorphic VT/Torsades and received magnesium and BB therapy with Metoprolol 5mg IV (2.5mg x2), she then had break in her runs and symptoms. She was evaluated by cardioogy Dr. Stevenson and EP Dr. Dunham- her AICD was interrogated and as well adjusted to bring her baseline pacer rate to 80 bpm from 60 and her time interval until therapy delivered was decreased to 14s. Patient was evaluated in the ER by myself at the request of hospitalist service for ICU admission in light of the above. Case was discussed with Dr. Stevenson and Dr. Dunham as well as Dr. Stevenson was on the phone with my Attending Dr. Oswald at my time of arrival to the ER. Patient is awake and asymptomatic currently and hemodynamics stable without vasopressor need and amiodarone infusing with no further episodes of ectopy/arrhythmia. In September patient was transferred to [facility] [place] for evaluation of her ventricular ectopy in light of her ESRD with suspicion for CAD and further evaluation of her MV. Reportedly her cath was negative for interventional disease and her Mitral valve was not amendable to clip repairy secondary to mitral valve stenosis- CT surgery declined surgical intervention secondary to risk. AICD was inserted at that time and she reports that she has not had any shocks since implantation and normally tolerates dialysis without complications. Patient does report that she had dialysis on 11/02/24 and 11/03/24 each with 1L removal. CODE: FULL Allergies Allergy/AdvReac Type Severity Reaction Status Date / Time CHIDI Inhibitors AdvReac Intermediate COUGH Verified 11/03/24 17:19 Home Medications Medication Instructions Recorded Confirmed Type amlodipine 5 mg tablet 5 mg PO QAM 30 days #30 tabs 01/16/24 11/03/24 Rx aspirin 81 mg chewable tablet 81 mg PO HS 30 days #30 tabs 01/16/24 11/03/24 Rx calcium acetate 667 mg tablet 2,001 mg (3 x 667 mg) PO TIDM 30 01/16/24 11/03/24 Rx days #90 tabs citalopram 40 mg tablet 20 mg (1/2 x 40 mg) PO QAM 30 days 01/16/24 11/03/24 Rx #30 tabs cyanocobalamin (vitamin B-12) 1,000 mcg IM Q90D 30 days #1 mL 01/16/24 11/03/24 Rx 1,000 mcg/mL injection solution melatonin 10 mg tablet 10 mg PO HS 30 days #30 tabs 01/16/24 11/03/24 Rx insulin lispro 100 unit/mL See Rx Instructions .Route .COMPLEX 07/07/24 11/03/24 History subcutaneous solution acetaminophen 325 mg tablet 650 mg PO Q6H PRN PAIN/FEVER 10/04/24 11/03/24 History (Tylenol) albuterol sulfate 0.63 mg/3 mL 0.63 mg inhalation Q6H PRN Wheezing 10/04/24 11/03/24 History solution for nebulization atorvastatin 40 mg tablet 40 mg PO QPM 10/04/24 11/03/24 History biotin 10 mg tablet 10 mg PO DAILY 10/04/24 11/03/24 History calcium 600 mg (as 1 tab PO BID ##0 10/04/24 11/03/24 History carbonate)-vitamin D3 5 mcg (200 unit) tablet cholecalciferol (vitamin D3) 125 125 mcg PO DAILY 10/04/24 11/03/24 History mcg (5,000 unit) tablet (Vitamin D3) colestipol 1 gram tablet 2 g PO QDL PRN Diarrhea 10/04/24 11/03/24 History diclofenac sodium 1 % topical gel 2 g topical TID PRN Pain 10/04/24 11/03/24 History gabapentin 300 mg capsule 300 mg PO HS 10/04/24 11/03/24 History insulin glargine 100 unit/mL (3 10 unit subcut QAM 10/04/24 11/03/24 History mL) subcutaneous pen (Lantus Solostar U-100 Insulin) levothyroxine 100 mcg tablet 100 mcg PO DAILYBB 10/04/24 11/03/24 History nitroglycerin 0.4 mg sublingual 0.4 mg sublingual DIRECTED PRN 10/04/24 11/03/24 History tablet (Nitrostat) CHEST PAIN omeprazole 20 mg capsule,delayed 20 mg PO DAILY 10/04/24 11/03/24 History release pediatric multivitamin 1 tab PO BID 10/04/24 11/03/24 History tramadol 50 mg tablet 50 mg PO Q4H PRN Pain 10/04/24 11/03/24 History vit B complx, C-iron 8 mg-folic 1 tab PO DAILY 10/04/24 11/03/24 History acid 800 mcg-D3 1,000 unit-zinc tablet (ProRenal) midodrine 5 mg tablet 5 mg PO DIRECTED 11/03/24 11/03/24 History Patient History Medical History ESRD (end stage renal disease) on dialysis Peripheral neuropathy bilateral legs/feet Anxiety History of anesthesia reaction woke up during hysterectomy in 1995 Hiatal hernia Osteoarthritis Degenerative disc disease Chronic back pain Post traumatic stress disorder History of anesthesia reaction when had port inserted needed more medication and could feel everything GERD (gastroesophageal reflux disease) Surgical History History of colonoscopy S/P left knee arthroscopy S/P right knee arthroscopy H/O radical excision of skin lesion melanoma S/P cardiac pacemaker procedure [employer] device, last checked ~2 months ago[address] Follows with Dr Stevenson S/P arteriovenous (AV) fistula creation Right arm History of vitrectomy History of cataract surgery bilateral History of adenoidectomy History of tonsillectomy H/O umbilical hernia repair open (~November 2022 Shaun [facility]nn) --> went to [facility] for rehab therapy for about 2 weeks. 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 Required: No Beliefs That Will Affect Care: None marital status: Current Living Situation: Spouse Current Living Situation Comment: lives with Other Information That Helps Us Care for You: No Feels Safe at Home: Yes Safety Concerns: Feels Safe At This Time Assistive Devices: Walker Review of Systems Review of Systems: REVIEW OF SYSTEMS: Constitutional: No fever, sweats or chills Eyes: No diplopia, no worsening or blurred vision ENT: normal hearing, no trouble swallowing Respiratory: (+) CPAP use, No cough, sputum, dyspnea at rest or on exertion Cardiovascular: (+) passing out, No chest pain, tightness or palpitations Abdomen: (+) nausea with dry heaves, No pain, nausea, vomiting, diarrhea or constipation Musculoskeletal: No joint pain, calf pain, swelling Neurologic: No weakness, numbness/tingling, or balance problems Psychiatric: No anxiety or depression Skin: No rash or itch Physical Exam Physical Exam: PHYSICAL EXAM: General: awake, alert, fatigued appearing Head: Normocephalic, atraumatic ENT: PERRL, EOMI, no pharyngeal exudate, mucous membranes moist Neuro: AAO x 3, speech clear and appropriate, strength intact bilaterally 5/5, sensation intact and equal all extremities and dermatomes, no pronator drift Chest: equal rise and fall of the chest, no accessory muscle use, no heaves or thrills, Clear to auscultation, on room air, Cardiac: Regular rate and rhythm, telemetry reviewed- AV paced at 80, no ectopy, skin warm dry, cap refill <3 seconds, peripheral pulses +2 no JVD, grade III systolic murmur, no edema, RIGHT lower arm dialysis fistula GI: NABS x 4 quadrants, soft, nontender to palpation, no rebound, guarding or tenderness : Spontaneously voiding, no pain, no CVA tenderness, Extremities: Normal inspection, no peripheral edema or erythema, calfs nontender to palpation Psych: Normal mood and affect Skin: no rash or erythema Results & Data Results & Data Vital Signs (Past 12 Hours) Vital Signs Temp Pulse Pulse Resp BP BP Pulse Ox 11/03/24 20:15 80 16 148/79 H 98 11/03/24 20:00 80 17 159/79 H 98 11/03/24 19:45 80 16 166/78 H 96 11/03/24 19:31 80 21 169/83 H 98 11/03/24 19:30 80 13 169/83 H 98 11/03/24 19:21 88 L 11/03/24 19:18 81 174/119 H 11/03/24 19:15 66 19 174/119 H 95 11/03/24 19:15 82 174/119 H 11/03/24 19:03 83 20 158/95 H 94 11/03/24 18:55 88 158/95 H 11/03/24 18:48 90 11/03/24 18:45 64 152/78 H 11/03/24 18:27 65 24 154/75 H 93 11/03/24 18:15 65 11/03/24 18:09 67 25 H 122/65 94 11/03/24 16:53 71 14 98 11/03/24 16:52 73 24 145/75 H 98 11/03/24 16:02 71 11/03/24 15:52 36.8 C 69 20 145/75 H 92 O2 Del Method O2 Flow Rate 11/03/24 20:15 Nasal Cannula 2 11/03/24 20:00 Nasal Cannula 2 11/03/24 19:45 Nasal Cannula 2 11/03/24 19:31 Nasal Cannula 2 11/03/24 19:30 Nasal Cannula 2 11/03/24 19:21 Nasal Cannula 0 11/03/24 19:18 11/03/24 19:15 Room Air 11/03/24 19:15 11/03/24 19:03 Room Air 11/03/24 18:55 11/03/24 18:48 11/03/24 18:45 11/03/24 18:27 Room Air 11/03/24 18:15 11/03/24 18:09 Room Air 11/03/24 16:53 Room Air 11/03/24 16:52 Room Air 11/03/24 16:02 11/03/24 15:52 Room Air Laboratory Results Abnormal lab results 11/03/24 Range/Units 16:09 RBC 3.10 L (4.20-5.40) M/uL Hgb 9.7 L (12.0-16.0) g/dl Hct 30.0 L (37.0-47.0) % RDW Std Deviation 53.1 H (36.4-46.3) fL RDW Coeff of Leatha 14.8 H (11.5-14.5) % Anderson # (Auto) 0.76 H (0.11-0.59) K/uL Chloride 92 L (98-107) mmol/L Carbon Dioxide 38 H (21-32) mmol/L Creatinine 2.62 H (0.6-1.2) mg/dl BUN/Creatinine Ratio 5.0 L (10-20) Glucose 267 H (70-99(Fasting)) mg/dl Alkaline Phosphatase 128 H (34-104) U/L Troponin I High Sens 16.1 H (0-14) pg/ml Diagnostic Findings Chest X-Ray 11/03/24 16:33 Chest radiograph, one view History: Chest pain Comparison: October 04, 2024 Findings: Lungs: Appearance of mild diffuse pulmonary edema likely related to CHF. No pulmonary mass density. Pleural space: Unremarkable. No pneumothorax or pleural fluid. Heart: Cardiomegaly. Mediastinum: Unremarkable. Normal mediastinal contour. Bones/joints: No acute findings. Tubes, lines and devices: Stable implanted cardiac pacer. IMPRESSION: Cardiomegaly with evidence of early CHF, similar to prior. Electronically signed by Regis Akbar 11-03-2024 5:26 PM Medications Administered Home Medications amlodipine 5 mg tablet 5 mg PO QAM 30 days #30 tabs 01/16/24 [Rx Confirmed 11/03/24] aspirin 81 mg chewable tablet 81 mg PO HS 30 days #30 tabs 01/16/24 [Rx Confirmed 11/03/24] calcium acetate 667 mg tablet 2,001 mg (3 x 667 mg) PO TIDM 30 days #90 tabs 01/16/24 [Rx Confirmed 11/03/24] citalopram 40 mg tablet 20 mg (1/2 x 40 mg) PO QAM 30 days #30 tabs 01/16/24 [Rx Confirmed 11/03/24] cyanocobalamin (vitamin B-12) 1,000 mcg/mL injection solution 1,000 mcg IM Q90D 30 days #1 mL 01/16/24 [Rx Confirmed 11/03/24] melatonin 10 mg tablet 10 mg PO HS 30 days #30 tabs 01/16/24 [Rx Confirmed 11/03/24] insulin lispro 100 unit/mL subcutaneous solution See Rx Instructions .Route .COMPLEX 07/07/24 [History Confirmed 11/03/24] nebulizer machine #1 ea 07/09/24 [Rx] acetaminophen 325 mg tablet (Tylenol) 650 mg PO Q6H PRN PAIN/FEVER 10/04/24 [History Confirmed 11/03/24] albuterol sulfate 0.63 mg/3 mL solution for nebulization 0.63 mg inhalation Q6H PRN Wheezing 10/04/24 [History Confirmed 11/03/24] atorvastatin 40 mg tablet 40 mg PO QPM 10/04/24 [History Confirmed 11/03/24] biotin 10 mg tablet 10 mg PO DAILY 10/04/24 [History Confirmed 11/03/24] calcium 600 mg (as carbonate)-vitamin D3 5 mcg (200 unit) tablet 1 tab PO BID ##0 10/04/24 [History Confirmed 11/03/24] cholecalciferol (vitamin D3) 125 mcg (5,000 unit) tablet (Vitamin D3) 125 mcg PO DAILY 10/04/24 [History Confirmed 11/03/24] colestipol 1 gram tablet 2 g PO QDL PRN Diarrhea 10/04/24 [History Confirmed 11/03/24] diclofenac sodium 1 % topical gel 2 g topical TID PRN Pain 10/04/24 [History Confirmed 11/03/24] gabapentin 300 mg capsule 300 mg PO HS 10/04/24 [History Confirmed 11/03/24] insulin glargine 100 unit/mL (3 mL) subcutaneous pen (Lantus Solostar U-100 Insulin) 10 unit subcut QAM 10/04/24 [History Confirmed 11/03/24] levothyroxine 100 mcg tablet 100 mcg PO DAILYBB 10/04/24 [History Confirmed 11/03/24] nitroglycerin 0.4 mg sublingual tablet (Nitrostat) 0.4 mg sublingual DIRECTED PRN CHEST PAIN 10/04/24 [History Confirmed 11/03/24] omeprazole 20 mg capsule,delayed release 20 mg PO DAILY 10/04/24 [History Confirmed 11/03/24] pediatric multivitamin 1 tab PO BID 10/04/24 [History Confirmed 11/03/24] tramadol 50 mg tablet 50 mg PO Q4H PRN Pain 10/04/24 [History Confirmed 11/03/24] vit B complx, C-iron 8 mg-folic acid 800 mcg-D3 1,000 unit-zinc tablet (ProRenal) 1 tab PO DAILY 10/04/24 [History Confirmed 11/03/24] midodrine 5 mg tablet 5 mg PO DIRECTED 11/03/24 [History Confirmed 11/03/24] Active Medications Amiodarone HCl/Dextrose (Nexterone / D5w) 360 mg in 200 mls @ 33.333 mls/hr IV ONE ONE Stop: 11/03/24 23:44 Last Admin: 11/03/24 18:05 Dose: 1 mg/min, 33.3 mls/hr Amiodarone HCl/Dextrose (Nexterone / D5w) 360 mg in 200 mls @ 16.667 mls/hr IV .Q12H PAULA Stop: 12/03/24 23:44 ECG Additional Comments: Atrial-sensed ventricular-paced rhythm Coding Level of Care Code 69644 CRITICAL CARE 1ST 30-74M Diagnoses Ventricular tachycardia I47.20 Nonrheumatic mitral valve stenosis with insufficiency I34.2; I34.0 Cardiac valve disease etiology: nonrheumatic ESRD (end stage renal disease) on dialysis N18.6; Z99.2 Pacemaker Z95.0 MINISTERIO on CPAP G47.33; Z99.89 Diabetes mellitus, type II E11.9 (2) Mitral regurgitation and mitral stenosis Cardiac valve disease etiology: nonrheumatic Qualified Code(s): I34.2 - Nonrheumatic mitral (valve) stenosis; I34.0 - Nonrheumatic mitral (valve) insufficiency
--- NOTE | 2024-11-03 21:03 | History & Physical Report ---
Date of Service November 03, 2024 Assessment & Plan (1) Ventricular tachycardia: Plan Pt is a 63-year-old female with past medical history significant for sick sinus syndrome s/p pacemaker placement with recent ICD upgrade in September of 2024, type 2 diabetes, diabetic polyneuropathy, end-stage renal disease on hemodialysis, dyslipidemia, hypothyroidism, diabetic gastroparesis, diabetic retinopathy, obstructive sleep apnea on CPAP, chronic diastolic CHF, pulmonary hypertension, hypertension, GERD, morbid obesity, status post gastric bypass, depression, history of endometrial cancer, CHIDI inhibitor intolerance, recurrent ventral incisional hernia who presents with multiple episodes of near syncope after dialysis today. Ventricular Tachycardia Presyncope Pt noting frequent episodes at home Multiple episodes in the ED, pt remained hemodynamically stable Cardiology consulted, appreciate recs -amiodarone drip -doses of Lopressor and Magnesium given in the ED -s/p AICD adjustment by EP -echo in the AM Continue to monitor in the ICU Chronic Anemia Hgb 9.7 At baseline Continue to monitor H/H DMII ICU protocol for hyperglycemia ESRD on dialysis Follows with [facility] Had dialysis the day of admission Continue to monitor Continue other home meds as ordered Diet: clears at this time DVT prophylaxis: heparin SQ Dispo: admit to the ICU History of Present Illness Chief Complaint: presyncope Primary Care Provider: Luis Fernando Rojas MD Pt is a 63-year-old female with past medical history significant for sick sinus syndrome s/p pacemaker placement with recent ICD upgrade in September of 2024, type 2 diabetes, diabetic polyneuropathy, end-stage renal disease on hemodialysis, dyslipidemia, hypothyroidism, diabetic gastroparesis, diabetic retinopathy, obstructive sleep apnea on CPAP, chronic diastolic CHF, pulmonary hypertension, hypertension, GERD, morbid obesity, status post gastric bypass, depression, history of endometrial cancer, CHIDI inhibitor intolerance, recurrent ventral incisional hernia who presents with multiple episodes of near syncope after dialysis today. History obtained from pt and in the room. Pt states that she had her pacemaker changed at [facility] recently and spent 9 days hospitalized. Since then has had no issues at home until today after dialysis she had multiple events of presyncopal symptoms and chest tightening but not pain. She denied SOB. States it feels like "it starts in my head" and that she knows when they are coming on. Pt with witnessed episode in the emergency room where she briefly lost consciousness before regaining it once more with episodes of emesis thereafter. She was evaluated at bedside by EP and her AICD was adjusted. She was transferred to the ICU for further monitoring. Allergies Allergy/AdvReac Type Severity Reaction Status Date / Time CHIDI Inhibitors AdvReac Intermediate COUGH Verified 11/03/24 17:19 Home Medications Medication Instructions Recorded Confirmed Type amlodipine 5 mg tablet 5 mg PO QAM 30 days #30 tabs 01/16/24 11/03/24 Rx aspirin 81 mg chewable tablet 81 mg PO HS 30 days #30 tabs 01/16/24 11/03/24 Rx calcium acetate 667 mg tablet 2,001 mg (3 x 667 mg) PO TIDM 30 01/16/24 11/03/24 Rx days #90 tabs citalopram 40 mg tablet 20 mg (1/2 x 40 mg) PO QAM 30 days 01/16/24 11/03/24 Rx #30 tabs cyanocobalamin (vitamin B-12) 1,000 mcg IM Q90D 30 days #1 mL 01/16/24 11/03/24 Rx 1,000 mcg/mL injection solution melatonin 10 mg tablet 10 mg PO HS 30 days #30 tabs 01/16/24 11/03/24 Rx insulin lispro 100 unit/mL See Rx Instructions .Route .COMPLEX 07/07/24 11/03/24 History subcutaneous solution acetaminophen 325 mg tablet 650 mg PO Q6H PRN PAIN/FEVER 10/04/24 11/03/24 History (Tylenol) albuterol sulfate 0.63 mg/3 mL 0.63 mg inhalation Q6H PRN Wheezing 10/04/24 11/03/24 History solution for nebulization atorvastatin 40 mg tablet 40 mg PO QPM 10/04/24 11/03/24 History biotin 10 mg tablet 10 mg PO DAILY 10/04/24 11/03/24 History calcium 600 mg (as 1 tab PO BID ##0 10/04/24 11/03/24 History carbonate)-vitamin D3 5 mcg (200 unit) tablet cholecalciferol (vitamin D3) 125 125 mcg PO DAILY 10/04/24 11/03/24 History mcg (5,000 unit) tablet (Vitamin D3) colestipol 1 gram tablet 2 g PO QDL PRN Diarrhea 10/04/24 11/03/24 History diclofenac sodium 1 % topical gel 2 g topical TID PRN Pain 10/04/24 11/03/24 History gabapentin 300 mg capsule 300 mg PO HS 10/04/24 11/03/24 History insulin glargine 100 unit/mL (3 10 unit subcut QAM 10/04/24 11/03/24 History mL) subcutaneous pen (Lantus Solostar U-100 Insulin) levothyroxine 100 mcg tablet 100 mcg PO DAILYBB 10/04/24 11/03/24 History nitroglycerin 0.4 mg sublingual 0.4 mg sublingual DIRECTED PRN 10/04/24 11/03/24 History tablet (Nitrostat) CHEST PAIN omeprazole 20 mg capsule,delayed 20 mg PO DAILY 10/04/24 11/03/24 History release pediatric multivitamin 1 tab PO BID 10/04/24 11/03/24 History tramadol 50 mg tablet 50 mg PO Q4H PRN Pain 10/04/24 11/03/24 History vit B complx, C-iron 8 mg-folic 1 tab PO DAILY 10/04/24 11/03/24 History acid 800 mcg-D3 1,000 unit-zinc tablet (ProRenal) midodrine 5 mg tablet 5 mg PO DIRECTED 11/03/24 11/03/24 History Past Med/Surg History Problem List Ventricular tachycardia (Acute) Mitral regurgitation and mitral stenosis Aortic stenosis, mild Mild mitral stenosis Abnormal urine findings Ventricular tachycardia Dialysis patient (Acute) Dysrhythmia (Acute) Rhinovirus infection (Acute) Syncope (Acute) Hypertension Rhinovirus infection (Acute) Hypoxia (Acute) Hypo-osmolar hyponatremia Insulin-requiring or dependent type II diabetes mellitus Acute on chronic heart failure with preserved ejection fraction Volume overload Acute bronchitis due to Rhinovirus Acute hypoxic respiratory failure Hypotension of hemodialysis Hyperkalemia Fracture of right tibial plateau Closed right tibial fracture (Acute) ESRD (end stage renal disease) on dialysis (Acute) Fall (Acute) Colon polyps S/P knee surgery (Chronic) DVT prophylaxis Anxiety Anemia Upper GI bleed (Acute) Hematemesis with nausea (Acute) Encounter for pre-operative examination Gastric ulcer COVID-19 (Acute) Acute dyspnea (Acute) Bilateral leg weakness (Acute) Anemia (Acute) Ambulatory dysfunction (Acute) Back pain (Acute) Tremor Obesity ESRD (end stage renal disease) on dialysis (Acute) Mon/Fri/Fri at [facility] in [place]. Pacemaker SSS [employer] follows with dr wiggins Chronic diastolic CHF (congestive heart failure) Depression Hypothyroidism SSS (sick sinus syndrome) Pt admitted for elective pacemaker due to SSS. She underwent procedure without any complications. Monitored over night and discharged home. MINISTERIO on CPAP (Chronic) MDD (major depressive disorder) (Chronic) HLD (hyperlipidemia) (Chronic) HTN (hypertension) (Chronic) Diabetes mellitus, type II (Chronic) IDDM H/O esophagogastroduodenoscopy (Chronic) Medical History ESRD (end stage renal disease) on dialysis Peripheral neuropathy bilateral legs/feet Anxiety History of anesthesia reaction woke up during hysterectomy in 1995 Hiatal hernia Osteoarthritis Degenerative disc disease Chronic back pain Post traumatic stress disorder History of anesthesia reaction when had port inserted needed more medication and could feel everything GERD (gastroesophageal reflux disease) Surgical History History of colonoscopy S/P left knee arthroscopy S/P right knee arthroscopy H/O radical excision of skin lesion melanoma S/P cardiac pacemaker procedure medtronic device, last checked ~2 months ago. Follows with Dr Stevenson S/P arteriovenous (AV) fistula creation Right arm History of vitrectomy History of cataract surgery bilateral History of adenoidectomy History of tonsillectomy H/O umbilical hernia repair open (~November 2022 [facility]) --> went to [facility] for rehab therapy for about 2 weeks. S/P dialysis catheter insertion right side of chest (since removed) S/P [place]-BSO H/O hernia repair Hx of gastric bypass History of cholecystectomy Hx of cardiac cath "2012, negative for CAD " Family History Other Colonic polyp GERD (gastroesophageal reflux disease) No family history of adverse response to anesthesia Social History Smoking Status: Never smoker Second Hand Exposure: No; Do You Dip or Chew Tobacco: No; Hx Alcohol Use: No Hx Substance Use: No Preferred Language: Mosotho Communication Ability: Effective Scrap [employer] Worker Required: No Beliefs That Will Affect Care: None marital status: Current Living Situation: Spouse Current Living Situation Comment: lives with Feels Safe at Home: Yes Assistive Devices: None Review of Systems Review of Systems: All systems reviewed & are unremarkable except as noted in Subjective Physical Exam Physical Exam: General: Alert, oriented HEENT: clear conjunctiva, oropharynx dry Neuro: No gross deficits HEENT: NC/AT CV: RRR Resp: Breath sounds clear bilaterally, no increased effort of breathing Abdomen: Soft, nontender Extremities: No edema in lower extremities bilaterally. Results & Data Results & Data Vital Signs (Past 12 Hours) Vital Signs Temp Pulse Pulse Resp BP BP Pulse Ox 11/03/24 19:45 80 16 166/78 H 96 11/03/24 19:31 80 21 169/83 H 98 11/03/24 19:30 80 13 169/83 H 98 11/03/24 19:21 88 L 11/03/24 19:18 81 174/119 H 11/03/24 19:15 66 19 174/119 H 95 11/03/24 19:15 82 174/119 H 11/03/24 19:03 83 20 158/95 H 94 11/03/24 18:55 88 158/95 H 11/03/24 18:48 90 11/03/24 18:45 64 152/78 H 11/03/24 18:27 65 24 154/75 H 93 11/03/24 18:15 65 11/03/24 18:09 67 25 H 122/65 94 11/03/24 16:53 71 14 98 11/03/24 16:52 73 24 145/75 H 98 11/03/24 16:02 71 11/03/24 15:52 36.8 C 69 20 145/75 H 92 O2 Del Method O2 Flow Rate 11/03/24 19:45 Nasal Cannula 2 11/03/24 19:31 Nasal Cannula 2 11/03/24 19:30 Nasal Cannula 2 11/03/24 19:21 Nasal Cannula 0 11/03/24 19:18 11/03/24 19:15 Room Air 11/03/24 19:15 11/03/24 19:03 Room Air 11/03/24 18:55 11/03/24 18:48 11/03/24 18:45 11/03/24 18:27 Room Air 11/03/24 18:15 11/03/24 18:09 Room Air 11/03/24 16:53 Room Air 11/03/24 16:52 Room Air 11/03/24 16:02 11/03/24 15:52 Room Air Diagnostic Findings Chest X-Ray 11/03/24 16:33 Chest radiograph, one view History: Chest pain Comparison: October 04, 2024 Findings: Lungs: Appearance of mild diffuse pulmonary edema likely related to CHF. No pulmonary mass density. Pleural space: Unremarkable. No pneumothorax or pleural fluid. Heart: Cardiomegaly. Mediastinum: Unremarkable. Normal mediastinal contour. Bones/joints: No acute findings. Tubes, lines and devices: Stable implanted cardiac pacer. IMPRESSION: Cardiomegaly with evidence of early CHF, similar to prior. Electronically signed by Regis Akbar 11-03-2024 5:26 PM
[2024-11-03] MEDS ORDERED: MIDODRINE HCL 2.5 MG TAB PO SCH (21:45)
[2024-11-03] MEDS ORDERED: GLUCAGON FOR INJ 1 MG VIAL SQ PRN (22:12)
[2024-11-03] MEDS ORDERED: DEXTROSE 50% 50 ML SYRINGE IV PRN (22:12)
[2024-11-03] MEDS ORDERED: GLUCOSE 10 TAB/TUBE PO PRN (22:12)
[2024-11-03] MEDS ORDERED: GLUCOSE 40% GEL 15 GM TUBE PO PRN (22:12)
[2024-11-03] MEDS ORDERED: Nursing to Pharmacy Communication SCH (22:15)
[2024-11-03] MEDS: INSULIN ASPART PER UNIT CHARGE SC SCH (22:23)
[2024-11-03] MEDS: PANTOprazole 40 MG/10 ML SYR IV ONE (22:24)
[2024-11-03] MEDS: ICU Protocol for HYPERglycemia STA (22:24)
[2024-11-03] MEDS ORDERED: NITROGLYCERIN SL 0.4 MG/TAB TAB SL PRN (23:02)
[2024-11-03] MEDS ORDERED: ALBUTEROL 0.083% NEBU SOLN 3 ML VIAL INH PRN (23:19)
[2024-11-03] MEDS: AMIODARONE / D5W 360 MG/200 ML BAG IV SCH (23:55)
--- OUTSIDE RECORDS SUMMARY | 2024-11-04 03:09 | External Medical Summary | Summary of Care ---
Author Name Unknown Organization [facility] Address [address] [place] [address] Phone [phone] Care Team Providers Care Hotel Registration Clerk Name Role Phone Luis Fernando Rojas MD Primary Care Provider [phone] Reason for Referral * Precert (Within 10 days (routine)) - Authorized Specialty Diagnoses / Procedures Referred By Mikey torres Referred To Contact Radiology Diagnoses Dyspnea and respiratory abnormalities Procedures CT CHEST WO CONTRAST Storm Jose MD [address] [place] [address] Phone: tel: fax: Referral ID Status Reason Start Date Expiration Date V isits Requested Visits Authorized [id number] Authorized 10/29/2024 [id number] Reason for Visit * Reason Comments NEW PATIENT Emphysema Sleep Apnea * Evaluate & Treat - Unlimited Visits (Within 10 days (routine)) - Authorized Specialty Diagnoses / Procedures Referred By Mikey torres Referred To Contact Pulmonary Diseases / Pulmonary Diagnoses Pulmonary emphysema, unspecified emphysema type (HCC) Uncomplicated asthma, unspecified asthma severity, unspecified whether persistent MINISTERIO on CPAP Hypoxia Mohini Marley MD [address] [place] [address] Phone: tel: fax: Referral ID Status Reason Start Date Expiration Date Visits Requested Visits Authorized [id number] Authorized Specialty Services Required 10/21/2024 [id number] Encounter Details Date Type Department Care Team (Latest Contact Info) Description 10/28/2024 10:30 AM EDT Office Visit Pulmonary Medicine, [facility] [address] [place] [id number] Storm Jose MD [address] [facility] [place] [id number] Cough variant asthma*; Eosinophilic asthma; Dyspnea and respiratory abnormalities Allergies Active Allergy Reactions Criticality Noted Date Comments Salvador Inhibitors Other (Please comment),Cough High HyperKalemia documented as of this encounter (statuses as of 10/29/2024) Medications Melatonin 10 MG Tablet Take 12 mg by mouth at bedtime. Active Aspirin 81 MG Oral Tablet ChewableIndications :Type 2 diabetes mellitus with chronic kidney disease [...] morning and 1 Tablet before bedtime. Active Acetaminophen 325 MG Oral Tablet (Tylenol) Take 2 Tablets by mouth every 6 hours as needed. Active Calcium Citrate-Vitamin D 315-5 MG-MCG Oral Tablet Take 1 Tablet by mouth in the morning. 600 mg of calcium twice daily + 20 mcg of vitamin d twice daily. Active BD Pen Needle Mini U/F 31G X 5 MM (Insulin Pen Needle)Indications: Type 2 diabetes mellitus with hemoglobin A1c [...] Active Levothyroxine Sodium 100 MCG Oral Tablet (Levoxyl)Indication s:Hypothyroidism, unspecified type TAKE 1 TABLET BY MOUTH [...] Omeprazole 20 MG Oral Capsule Delayed Release (PriLOSEC)Indicatio ns:Gastroesophageal reflux disease without esophagitis Take 1 Capsule by mouth in the morning. 100 Capsule 3 5 8:57 AM EST 03/18/20 24 Active OneTouch Verio In Vitro Strip [...] 6 hours as needed for Wheezing. Active Gabapentin 300 MG Oral Capsule (Neurontin) Take 1 Capsule by mouth at bedtime. Follow up with your primary care provider for further management. 90 Capsule 3 5 2:09 PM EST 08/06/19 25 Active Atorvastatin Calcium 40 MG Oral Tablet (Lipitor)Indication s:Dyslipidemia, goal LDL below 100 Take 1 Tablet by mouth in the morning. 90 Tablet 1 5 3:02 PM EST 08/05/19 25 Active Colestipol HCl 1 GM Oral Tablet (Colestid) take 2 tablets by mouth at noon daily if needed for diarrhea 180 Tablet 3 5 3:46 PM EST 08/10/19 25 Active Insulin Glargine Solostar 100 UNIT/ML Subcutaneous Solution Pen-injector (Basaglar KwikPen)Indications :Type 2 diabetes mellitus with hemoglobin A1c goal of less than 7.0% (HCC) Inject 10 Units under the skin in the morning. 15 mL 4 08/26/19 25 Active Insulin Lispro (1 Unit Dial) 100 UNIT/ML Subcutaneous Solution Pen-injector (HumaLOG KwikPen)Indications :Type 2 diabetes mellitus with hemoglobin A1c goal of less than 7.0% (HCC) Inject 12 units with breakfast, 12 units with lunch and 16 units with supper. Max dose of 40 units per day 45 mL 4 10/05/19 25 Active Midodrine HCl 5 MG Oral Tablet (Proamatine) Take 1 Tablet by mouth daily as needed for Other (30 minutes before dialysis and another 5mg fci through dialysis if needed). 30 Tablet 3 10/11/19 25 Active Nitroglycerin 0.4 MG Sublingual Tablet Sublingual (Nitrostat)Indicati ons:Chronic diastolic heart failure (HCC),Aortic atherosclerosis (HCC) Place 1 Tablet under the tongue as needed for Pain, Chest. May repeat 3 times. If chest pain continues, call 911. 25 Tablet 11 10/28/19 25 Active Hospital, Clinic, or Other Facility Administered Medication Ordered Dose Route Frequency Start Date End Date Status vitamin b-12 (Cyanocobalamin) inj 1,000 mcgIndications:S/P gastric bypass 1000 mcg IM [id number] 10/15/2022 07/19/2025 Active vitamin b-12 (Cyanocobalamin) inj 1,000 mcgIndications:Morbid obesity with BMI of 40.0-44.9, adult (HCC),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 [id number] 10/17/2023 12/10/2024 Active Albuterol Sulfate (Proventil) (2.5 MG/3ML) 0.083% inhalation solution 2.5 mgIndications:Dyspnea and respiratory abnormalities 2.5 mg NEBULIZER PRN 10/28/2024 10/28/2025 Active Albuterol Sulfate (Proventil) (5 MG/ML) 0.5% *conc* inhalation solution 2.5 mgIndications:Dyspnea and respiratory abnormalities 2.5 mg NEBULIZER PRN 10/28/2024 10/28/2025 Active documented as of this encounter (statuses as of 10/29/2024) Active Problems Problem Noted Date Diagnosed Date Pulmonary emphysema 10/21/2024 Uncomplicated asthma 10/21/2024 Severe mitral regurgitation 10/13/2024 Chronic hyponatremia 10/11/2024 Hyperphosphatemia 10/11/2024 Mitral stenosis with insufficiency 10/09/2024 Arterial hypotension 10/07/2024 Anemia of renal disease 10/07/2024 Ventricular tachycardia, non-sustained Major depressive disorder, single episode, moder ate [...] 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 Postsurgical malabsorption, not elsewhere classi fied 10/10/2020 [...] EDT): Gabapentin 600 mg at [facility] Assessment & Plan (05/07/2021 11:11 AM EDT): [...] as of this encounter (statuses as of 10/29/2024) Resolved Problems Problem Noted Date Diagnosed Date Resolved Date Hyperkalemia 10/11/2024 10/12/2024 Other specified glaucoma 11/28/2022 Renal failure 01/31/2022 [...] 3b 11/28/2020 10/08/2022 Overview: Per CKD protocol Morbid obesity with BMI of 40.0-44.9, adult 10/10/2020 10/21/2024 Gastroparesis 05/12/2020 10/08/2022 Insulin long-term use 11/19/20182018 Overview (05/20/2019): Duplicate intermediate accountant (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 insulin 11/19/2018 10/08/2022 Morbid [...] T-tube placement 04/16/2017 05/29/2017 [employer] Other*[id number] 04/13/2013 08/27/2016 Overview (04/13/2013): Study Title: Genomic Markers for Patients with Cardiovascular Disease Project # [id number] Telecommunications Field Technician: Siena Laws MD [phone] Hypertensive heart disease 03/25/2013 1 07/29/2016 Neuropathy, [...] as of this encounter (statuses as of 10/29/2024) Immunizations Name Administration Dates Next Due COVID-19 mRNA, LNP-s, No Pre serve, 2-Dose Series (Moderna) 04/09/2021,09/23/2020,08/19/2020 COVID-19, LNP-s, No Preserve , Espinoza-sucrose, Ages 12+ (Pfizer) 01/08/2022 COVID-19, MRNA-LNP, PF, 30 M CG/0.3 mL, 12 YRS AND ABOVE, IM (PFIZER-Comirnaty) 06/02/2024 HEPATITIS B VACCINE, RECOMB, 20 MCG/ML, ADULT (HEPLISAV-B) 09/05/2021,05/09/2021,04/04/2021,02/18 Hepatitis B, 20+ yrs 09/16/2018,04/14/2018,03/1104/11/2018 Pneumococcal Conjugate Vacci ne, 20-valent ([id number]) 06/22/2024,12/02/2023(Deferred: - pt states she's already received) [...] the money to buy more. Never true 10/18/19 25 Within the past 12 months, t he food you bought just didn't last and you didn't have money to get more. Never true 10/17/2024 Childcare Answer Date Recorded Do you feel overwhelmed with taking care of a child, family member or friend? No 10/17/2024 Does your family need help f inding childcare? (Household - for ages 0-17 years) Not on file 10/17/2024 Clothing Answer Date Recorded Have you been unable to get clothing when it was really needed? No 10/17/2024 Is your family able to get c lothes or diapers when needed? (Household - for ages 0-17 years) Not on file 10/17/2024 Personal Safety Answer Date Recorded Do you feel unsafe or have concerns for your saf ety? No 10/17/2024 Do you have concerns for you r family's safety? (Household - for ages 0-17 years) Not on file 10/17/2024 Utilities Answer Date Recorded Do you have trouble paying y our heating, water, or electric bill? No 10/17/2024 Is your family able to pay t he heat, water, or electric bill? (Household - for ages 0-17 years) Not on file 10/17/2024 Does your family have access to good internet? (Household - for ages 0-17 years) Not on file 10/17/2024 Employment Status Answer Date Recorded Are you unemployed or without regular income? No 10/17/2024 Does the household have a [facility] source of income? (Household - for ages 0-17 years) Not on file 10/17/2024 Social Connections Answer Date Recorded How often do you feel lonely or isolated from th ose around you? Never 10/17/2024 Financial Resource Strain Answer Date R ecorded Do you have any trouble payi ng for your medications, or do you think you might in the future? No 10/17/2024 Does your family have troubl e paying for medicine? (Household - for ages 0-17 years) Not on file 10/17/2024 Transportation Needs Answer Date Record ed Do you have trouble getting a ride to medical visits or work? (Adult - for ages 18 years and over) Not on file 10/17/2024 Does your family have a hard time getting a ride to doctors visits? (Household - for ages 0-17 years) Not on file 10/17/2024 Has lack of transportation k ept you from medical appointments, meetings, work, or from getting things needed for daily living? Check all that apply. No 10/17/2024 Do you (or your family) have trouble finding or paying for a ride (transportation)? (Household - for ages 0-17 years) Not on file 10/17/2024 Housing Stability Answer Date Recorded Do you currently live in a s helter or have no steady place to sleep at night? No 10/17/2024 Do you think you are at risk of becoming homeless? (Adult - for ages 18 years and over) Not on file 10/17/2024 Does your family worry about paying for your home or becoming homeless? (Household - for ages 0-17 years) Not on file 0 10/17/2024 Are you homeless or worried that you might be in the future? No 10/17/2024 Are you (or your family) caleb eless [...] ages 0-17 years) Not on file 08/14/2023 Food Insecurity Answer Date Recorded Within the past 12 months, y ou worried that your food would run out before you got the money to buy more. Never true 10/18/19 25 Within the past 12 months, t he food you bought just didn't last and you didn't have money to get more. Never true 10/17/2024 Do you need food for this week? No 10/17/2024 Comments No Sex and Gender Information Value [...] Reading Time Taken Comments Blood Pressure 118/62 10/28/2024 10:48 AM EDT Pulse 65 10/28/2024 10:48 AM EDT Temperature 35.8 °C (96.4 °F) 10/28/2024 10:48 AM E DT Respiratory Rate 16 10/28/2024 10:48 AM EDT Oxygen Saturation 97% 10/28/2024 10:48 AM EDT Inhaled Oxygen Concentration - - Weight 99.3 kg (219 lb) 10/28/2024 10:48 AM EDT Height 162.6 cm (5' 4") 10/28/2024 10:48 AM EDT Body Mass Index 37.59 10/28/2024 10:48 AM EDT documented in this encounter Functional Status * Are you deaf or do you have serious difficulty hearing? Answer Date of Assessment Author No 10/05/2024 3:55 PM EDT Honorio Ramírez RN * Are you blind or do you have serious difficulty seeing, even when wearing glasses? Answer Date of Assessment Author No 10/05/2024 3:55 PM EDT Honorio Ramírez RN * Do you have serious difficulty walking or climbing stairs? (5 years old or older) Answer Date of Assessment Author Yes 10/05/2024 3:55 PM EDT Honorio Ramírez RN * Do you have difficulty dressing or bathing? (5 years old or older) Answer Date of Assessment Author No 10/05/2024 3:55 PM EDT Honorio Ramírez RN * Because of a physical, mental, or emotional condition, do you have difficulty doing errands alone such as visiting a doctor’s office or shopping? (15 years old or older) Answer Date of Assessment Author No 10/05/2024 3:55 PM EDT Honorio Ramírez RN documented as of this encounter Mental Status * Because of a physical, mental, or emotional condition, do you have serious difficulty concentrating, remembering, or making decisions? (5 years old or older) Answer Entry Date Author No 10/05/2024 3:55 PM EDT Honorio Ramírez RN documented in this encounter Progress Notes * Storm Jose MD - 10/28/2024 10:56 AM EDT Images from the original note were not included. 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 Lifetime nonsmoker, Hx of 2nd hand Smoke Exposure Severe mitral regurgitation, undergoing Eval for "Open"MVR (patient reports that she is not a TAVR candidate) CHF HTN ESRD on HD, RUE AVF OSAS on CPAP therapy Diabetes mellitus Depression GERD Hyperlipidemia ?Emphysema ?Uncomplicated asthma Limited Exercise tolerance < 2 blocks, < 1 Flight of stairs Recent CHF exacerbation episode, Rx at [facility], [facility] No BVD Rx Physical Examination: Alert, awake, no distress Class 3 throat No JVD Adeq Air entry in all lung torres, No Wheezing, no rales, no dullness S1, S2, +ve systolic apical murmur Soft nontender abdomen No LE Edema RUE AVF Nonlateralizing Neuro Exam Assessment CHF Severe Mitral regurgitation ESRD on HD OSAS on CPAP BNP 32K Low clinical likelihood for Asthgma/COPD CT Chest Non contrast PFT 6 MWT F/u 4 weeks Follow Up: Return in about 4 weeks (around 11/25/2024) for Clinic Visit. | For: Clinic Visit | Check-out note: CHF Severe Mitral regurgitation ESRD on HD OSAS on CPAP BNP 32K Low clinical likelihood for Asthgma/COPD CT Chest Non contrast PFT 6 MWT F/u 4 weeks I spent a total of 40-54 minutes (exact time 45 mins) on the date of service in preparation, delivery, and documentation of the care provided to Candi Finley excluding any time spent in the performance of separately billed services or time spent by another provider/QHP. Storm Jose MD Data review: Following reports, and data as outlined below was personally reviewed and interpreted by myself. XR CHEST 2 VIEWS-10/09/2024 11:19 pm HISTORY CHF COMPARISON Chest radiograph 10/08/2024. TECHNIQUE AP semi upright and lateral radiographs of the chest. FINDINGS Redemonstrated findings of CHF with mild pulmonary edema, small bilateral pleural effusions and bibasilar atelectatic changes. The cardiomediastinal silhouette is unchanged. Multi lead left chest wall ICD appears intact and stable. No acute osseous finding. IMPRESSION IMPRESSION Similar findings of CHF. Component Latest Ref Rng 10/10/2024 BNP, NT-Pro <300 pg/mL 32,069 (H) Legend: (H) High Subjective CC: Chief Complaint Patient presents with NEW PATIENT Emphysema Sleep Apnea HPI: Nursing Notes: Saida Main LPN 10/28/24 1108 Signed Chief Complaint Patient presents with NEW PATIENT Emphysema Sleep Apnea MMRC Dyspnea Scale = 3 (I stop for breath after walking about 100 yards or after a few minutes on ground level) Interm History/Respiratory Symptoms Cough: no Hemoptysis: no Sinus Symptoms: Occ PND Hospitalizations: Approx 3 wks ago-fainting ED Trips: Approx 3 wks ago-fainting Triggers: pollen,exertion Nocturnal: no CPAP/BiPAP/O2: Cpap DME Supplier: [facility] Objective Filed Vitals: 10/28/24 1048 BP: 118/62 Pulse: 65 Resp: 16 Temp: 35.8 °C (96.4 °F) TempSrc: Tympanic SpO2: 97% Weight: 99.3 kg (219 lb) Height: 1.626 m (5' 4") Exam: Const: No signs of acute distress present. Head/Face: Normal on inspection. Eyes: Conjunctivae clear. Pupils equal round and reactive to light. ENMT: Oropharynx: No erythema, exudate or masses. Posterior pharynx is normal. Neck: Supple and symmetric. Resp: Respiratory examination as outlined above CV: Rate is regular. Rhythm is regular. No heart murmur appreciated. Extremities: No edema of the lower limbs bilaterally. Skin: Skin is warm and dry. Neuro: Coordination normal. No involuntary movement. Psych: Patient's attitude is cooperative. Mood is normal. Affect is normal. Tests reviewed with the patient: XR CHEST 2 VIEWS Result Date: 10/09/2024 IMPRESSION Similar findings of CHF. XR CHEST 1 VIEW Result Date: 10/08/2024 IMPRESSION 1. Bilateral hazy airspace opacities, likely pulmonary edema. 2. New hazy opacities in the right perihilar/infrahilar lung may favored to represent infection. I have personally reviewed this examination and agree with the resident/fellow physician's interpretation. XR CHEST 2 VIEWS Result Date: 10/07/2024 IMPRESSION 1. No discernible pneumothorax. 2. Small pleural effusions. XR L SPINE 2-3 VIEWS Result Date: 06/22/2024 IMPRESSION 1. No fracture identified. 2. Degenerative findings as above. XR SACRUM COCCYX MINIMUM 2 VIEWS Result Date: 06/22/2024 IMPRESSION No radiographically apparent fracture. Available Radiologic data was reviewed by me in PACS. The images were shown to the patient and findings were discussed with the patient. HOME MEDICATIONS: Nitroglycerin 0.4 MG Sublingual Tablet Sublingual (Nitrostat) Midodrine HCl 5 MG Oral Tablet (Proamatine) Insulin Lispro (1 Unit Dial) 100 UNIT/ML Subcutaneous Solution Pen-injector (HumaLOG KwikPen) Insulin Glargine Solostar 100 UNIT/ML Subcutaneous Solution Pen-injector (Basaglar KwikPen) Colestipol HCl 1 GM Oral Tablet (Colestid) Gabapentin 300 MG Oral Capsule (Neurontin) Atorvastatin Calcium 40 MG Oral Tablet (Lipitor) Albuterol Sulfate 0.63 MG/3ML Inhalation Nebulization Solution (Accuneb) BrainBot DelCrowdPlat Lancets 33G Signiant In Vitro Strip (Glucose Blood) Signiant w/Device Kit Omeprazole 20 MG Oral Capsule Delayed Release (PriLOSEC) Citalopram Hydrobromide 20 MG Oral Tablet (CeleXA) Diclofenac Sodium 1 % External Gel (Voltaren) Levothyroxine Sodium 100 MCG Oral Tablet (Levoxyl) BD Pen Needle Mini U/F 31G X 5 MM (Insulin Pen Needle) Calcium Acetate (Phos Binder) 667 MG Oral Capsule (Phoslo) Calcium Citrate-Vitamin D 315-5 MG-MCG Oral Tablet Acetaminophen 325 MG Oral Tablet (Tylenol) Biotin 1000 MCG Oral Tablet Childrens Chewable Vitamins Oral Tablet Chewable Vitamin D 125 MCG (5000 UT) Oral Capsule ProRenal + D Oral Tablet CPAP FreeStyle Jennifer 2 Sensor Aspirin 81 MG Oral Tablet Chewable Melatonin 10 MG Tablet Albuterol Sulfate (Proventil) (2.5 MG/3ML) 0.083% inhalation solution 2.5 mg Albuterol Sulfate (Proventil) (5 MG/ML) 0.5% *conc* inhalation solution 2.5 mg vitamin b-12 (Cyanocobalamin) inj 1,000 mcg vitamin b-12 (Cyanocobalamin) inj 1,000 mcg ROS: No reported history of Hemoptysis, Hematemesis, Melena No reported history of Dysuria, Hematuria, Flank Pain No reported history of chronic headache, seizures No reported history of Fall or trauma . No reported history of recent change in weight or appetite. Past Medical History: Diagnosis Date Body mass index 40 and over, adult CHF NYHA class I ([facility]) 07/2009 Chronic marginal ulcer Deficiency of other vitamins Vit D Depressive disorder, not elsewhere classified Dialysis patient ([facility]) Diverticulosis of colon (without mention of hemorrhage) [...] hemodialysis SBO (small bowel obstruction) ([facility]) 04/25/2017 Sleep apnea 07/2009 CPAP 11 cm H2O. C-flex 2 Past Surgical History: Procedure Laterality Date ABD WALL HERNIA REPAIR, LAP, REDUCIBLE N/A 01/28/2022 LAPAROSCOPIC VENTRAL/UMBILICAL HERNIA REPAIR, REDUCIBLE W OR W/O MESH performed by Honorio Ashford MD at [place] [facility] AV ACCESS, DIRECT ANASTOMOSIS Right 08/16/2021 ARTERIOVENOUS ANASTOMOSIS OPEN DIRECT ANY SITE performed by Sterling Cates MD at [facility] BREAST BIOPSY Left 12/26/2008 Usual Ductal Hyperplasia BREAST BIOPSY Left 09/20/2010 Benign BX LYMPH NODE DEEP AXIL Right 05/22/2021 BIOPSY LYMPH NODE DEEP AXILLARY OPEN performed by Diamond Rivero MD at OR [facility] COLONOSCOPY, DIAGNOSTIC (RECTUM) 12/02/2013 hyperplastic polyps, diverticulosis, repeat 5 yrs/done @ [facility] COLONOSCOPY, DIAGNOSTIC (RECTUM) 12/11/2017 adenomatous polyps, diverticulosis, repeat 5 yrs/[facility] COLONOSCOPY, DIAGNOSTIC (RECTUM) N/A 02/27/2023 diverticulosis/hemorrhoids/biopsies show adenomatous polyps/recall 5 years/Colonoscopy/RI CORONARY ANGIOGRAPHY W/LEFT HEART CATH 04/13/2013 CORONARY ANGIOGRAPHY W/LEFT HEART CATH performed by Ulises Reed MD at [facility] CV ECHO, ANTHONY INTRAOPERATIVE N/A 10/12/2024 ECHOCARDIOGRAPHY, TRANSESOPHAGEAL; INCLUDING PROBE PLACEMENT, IMAGE ACQUISITION, INTERPRETATION ANDREPORT performed by [facility] Out Surgery at [facility] DIALYIS CIRCUIT VASCULAR EMBOLIZATION OCCLUSION ENDOVASC IMAGING Right 11/27/2021 EMBOLIZATION DIALYSIS CIRCUIT performed by Sterling Cates MD at [facility] EGD, FLEXIBLE, DIAGNOSTIC 05/03/2014 mild-mod inflammation/done @ [facility] EGD, FLEXIBLE, DIAGNOSTIC N/A 04/16/2017 ESOPHAGOGASTRODUODENOSCOPY (EGD), FLEXIBLE, TRANSORAL, DIAGNOSTIC performed by Félix Gilliam [place] [facility] EGD, FLEXIBLE, DIAGNOSTIC 05/05/2020 mild-mod inflammation on bx / ESOPHAGOGASTRODUODENOSCOPY (EGD), FLEXIBLE, TRANSORAL, DIAGNOSTIC performed by Adin Borja MD at ENDOSCOPY [facility] EGD, FLEXIBLE, DIAGNOSTIC N/A 04/25/2021 ESOPHAGOGASTRODUODENOSCOPY (EGD), FLEXIBLE, TRANSORAL, DIAGNOSTIC performed by Honorio Almendarez MD at[facility] EGD, FLEXIBLE, DIAGNOSTIC 06/13/2021 gastrojejunal anastomosis characterized by ulceration, repeat 2 mo / [facility] IDENTIFY SENTINEL NODE, RADIOACTIVE TRACER Right 05/22/2021 INJECTION PROCEDURE FOR IDENTIFICATION SENTINEL NODE performed by Diamond Rivero MD at OR [facility] INFORMATION Left 2019 Pacemaker placement. INSERT/REPLACE DEFIBRILLATOR W/TRANSVERSE LEAD(S) Left 10/07/2024 BIVENTRICULAR DEFIBRILLATOR performed by Arianne Carrizales IV, MD at [facility] INTRO CATH DIALYSIS CIRCUIT DX ANGIOGRAPHY FLUORO S&I Right 10/10/2022 AV FISTULOGRAM DIAGNOSTIC performed by Jose Devine MD at OR [facility] INTRO CATH DIALYSIS CIRCUIT W/TRANSCATH PLACEMENT IV STENT Right 03/19/2022 AV FISTULOGRAM STENT & PERIPHERAL ANGIOPLASTY performed by Jose Devine MD at [place] [facility] INTRO CATH DIALYSIS CIRCUIT W/TRANSCATH PLACEMENT IV STENT Right 05/13/2023 AV FISTULOGRAM STENT & PERIPHERAL ANGIOPLASTY performed by Williams Matt MD at [place] [facility] INTRO CATH DIALYSIS CIRCUIT W/TRANSCATH PLACEMENT IV STENT Right 12/02/2023 AV FISTULOGRAM STENT & PERIPHERAL ANGIOPLASTY performed by Micheal Urena MD at [place] [facility] INTRO CATH DIALYSIS CIRCUIT W/TRANSCATH PLACEMENT IV STENT Right 06/01/2024 AV FISTULOGRAM STENT & PERIPHERAL ANGIOPLASTY performed by Beto Torrez MD at [place] [facility] INTRO CATH DIALYSIS CIRCUIT W/TRANSLUM BALLOON ANGIOPLASTY Right 11/27/2021 AV FISTULOGRAM & PERIPHERAL ANGIOPLASTY performed by Sterling Cates MD at [place] [facility] INTRO CATH DIALYSIS CIRCUIT W/TRANSLUM BALLOON ANGIOPLASTY Right 05/30/2022 AV FISTULOGRAM & PERIPHERAL ANGIOPLASTY performed by Beto Torrez MD at OR [facility] INTRO CATH DIALYSIS CIRCUIT W/TRANSLUM BALLOON ANGIOPLASTY Right 02/25/2023 AV FISTULOGRAM & PERIPHERAL ANGIOPLASTY performed by Jose Devine MD at [place] [facility] INTRO CATH DIALYSIS CIRCUIT W/TRANSLUM BALLOON ANGIOPLASTY Right 03/30/2024 AV FISTULOGRAM & PERIPHERAL ANGIOPLASTY performed by Micheal Urena MD at [place] [facility] INTRO CATH DIALYSIS CIRCUIT W/TRANSLUM BALLOON ANGIOPLASTY Right 09/16/2024 AV FISTULOGRAM & PERIPHERAL ANGIOPLASTY performed by Sterling Cates MD at OR [facility] IR DUPLEX ULTRASOUND (FOR INTERVENTIONAL RADIOLOGY USE ONLY) 03/02/2021 IR FISTULAGRAM AV DIALYSIS SHUNT IR VENOUS ACCESS NON-MEDIPORT 07/18/2022 LAPAROSCOPE PROCEDURE, LIVER N/A 04/16/2017 UNLISTED LAPAROSCOPIC PROCEDURE LIVER performed by Sukumar Polanco MD at [facility] LAPAROSCOPE PROCEDURE, LIVER N/A 01/28/2022 UNLISTED LAPAROSCOPIC PROCEDURE LIVER performed by Honorio Ashford MD at [facility] LAPAROSCOPIC GASTRIC BYPASS/JODY-EN-Y N/A 04/16/2017 LAPAROSCOPIC GASTRIC RESTRICTIVE BYPASS JODY EN Y performed by Sukumar Polanco MD at [facility] LAPAROSCOPY; CHOLECYSTECTOMY N/A 04/16/2017 LAPAROSCOPIC CHOLECYSTECTOMY performed by Sukumar Polanco MD at [place] [facility] MISCELLANEOUS ORDER ([facility] ONLY) 05/2009 breast biopsy/ [...] performed by Sukumar Polanco MD at [facility] REPLACE,COMP,FLACO CENT ACC DEV N/A 03/22/2021 REPLACEMENT COMPLETE TUNNELED CENTRAL CATHETER NO PORT performed by Luis Fernando Hassan DO at OR [facility] REVISE STOMACH-BOWEL FUSION N/A 01/28/2022 REVISION GASTROJEJUNAL ANASTOMOSIS performed by Honorio Ashford MD at [place] [facility] RMV MALG LSN TRK/ARM/LG >4.0CM Right 05/22/2021 EXCISION MALIGNANT TRUNK ARM LEG OVER 4CM performed by Diamond Rivero MD at OR [facility] RPR AA HERNIA 1ST 3-10 CM REDUCIBLE N/A 12/11/2022 INCISIONAL/VENTRAL/SPIGELIAN HERNIA REPAIR INITIAL 3-10 CM REDUCIBLE performed by Eros Dash MD at [place] [facility] TOTAL ABD HYSTERECTOMY W/WO REMOVAL OF TUBE(S) Bilateral age 33 TOTAL HYSTERECTOMY TAHBSO (endometrial ca) TRANSECTION VAGUS NRV,TRUNCAL N/A 01/28/2022 LAPAROSCOPIC TRANSECTION VAGUS NERVES TRUNCAL performed by Honorio Ashford MD at [facility] UPPER GI ENDOSCOPY Social History Socioeconomic History Marital status: Number of children: 0 Occupational History Employer: [employer] Tobacco Use Smoking status: Never Passive exposure: Never Smokeless tobacco: Never Vaping Use Vaping status: Never Used Substance and Sexual Activity Alcohol use: No Drug use: No Sexual activity: Yes Partners: Male control/protection: Surgical Comment: hysterectomy Social History Narrative Employed: [email or web address] Social Needs Financial Resource Strain: Low Risk (10/17/2024) Financial Resource Strain Do you have any trouble paying for your medications, or do you think you might in the future? (Adult - for ages 18 years and over): No Food Insecurity: No Food Insecurity (10/17/2024) Food Insecurity Worried About Running Out of Food in the Last Year: Never true Ran Out of Food in the Last Year: Never true Do you need food for this week? (Adult - for ages 18 years and over): No Transportation Needs: No Transportation Needs (10/17/2024) Transportation Needs Has lack of transportation kept you from medical appointments, meetings, work, or from getting things needed for daily living? Check all that apply. (Adult - for ages 18 years and over): No Social Connections: Socially Integrated (10/17/2024) Social Connections How often do you feel lonely or isolated from those around you? (Adult - for ages 18 years and over): Never Housing Stability: Low Risk (10/17/2024) Housing Stability Do you currently live in a custodial or have no steady place to sleep at night? (Adult - for ages 18 years and over): No Are you homeless or worried that you might be in the future? (Adult - for ages 18 years and over): No Family History Problem Relation Name Age of [...] Cancer Aunt (Paternal) Breast Cancer Cousin (Paternal) Review of patient's allergies indicates: Allergen Reactions Salvador Inhibitors Other (Please comment) and Cough HyperKalemia documented in this encounter Nursing Notes * Saida Mian LPN - 10/28/2024 10:52 AM EDT Chief Complaint Patient presents with NEW PATIENT Emphysema Sleep Apnea MMRC Dyspnea Scale = 3 (I stop for breath after walking about 100 yards or after a few minutes on ground level) Interm History/Respiratory Symptoms Cough: no Hemoptysis: no Sinus Symptoms: Occ PND Hospitalizations: Approx 3 wks ago-fainting ED Trips: Approx 3 wks ago-fainting Triggers: pollen,exertion Nocturnal: no CPAP/BiPAP/O2: Cpap DME Supplier: [facility] documented in this encounter Plan of Treatment Upcoming Encounters Date Type Department Care Team (Late st Contact Info) Description 11/02/2024 9:30 AM EDT Home Visit [facility] [address] [place] [phone] Heidi Garcia, RN [address] [place] [address] 11/02/2024 1:40 PM EDT Office Visit Podiatry [facility] [address] [place] [phone] Calli Avila DPM [address] [place] [address] 11/04/2024 9:00 AM EDT Telemedicine [address], [address] [place] [phone] [place] [phone] [facility] [address] 11/25/2024 7:30 AM EDT [facility] [address] [place] [phone] 11/25/2024 10:00 AM EDT Imaging Radiology [facility] [address] [place] [address] 11/25/2024 11:30 AM EDT Office Visit Pulmonary Medicine, [facility] [address] [place] [phone] Storm Jose MD [address] [place] [address] 11/25/2024 1:00 PM EDT PulmDiagnostic Pulmonary Function Lab, [facility] [address] [place] [address] [place], [facility] [address] [place] [address] 11/30/2024 10:00 AM EDT Nurse Only Nutrition & Weight Management, [facility] [address] [place] [phone] Boni Nurse Gi Nutrition [facility] [address] [place] [address] 12/21/2024 10:30 AM EDT Office Visit Gastroenterology, [facility] [address] [place] [address] Emi Queen CRNP [address] [place] [address] 12/21/2024 2:20 PM EDT Office Visit Family Practice, [facility] [address] [facility] [place] [phone] Luis [facility] Ro[facility] [address] [facility] [address] 12/28/2024 10:00 AM EDT Cardiac Studies Cardiology, [facility] [address] [place] [address] [facility] [address] [place] [address] 03/10/2025 1:20 PM EDT Office Visit Dermatology, [facility] [address] [facility] [phone] Joanne Parks PA-C [address] [place] [address] [place] [address] Scheduled Orders Name Type Priority Associated Diagnoses Orde r Schedule CT CHEST WO CONTRAST Medical Imaging Routine Dyspnea and respiratory abnormalities Expected: 10/29/2024, Expires: 11/27/2025 PULMONARY STRESS TESTING Procedures Routine Dyspnea and respiratory abnormalities Expected: 10/29/2024, Expires: 11/27/2025 DIFFUSION CAPACITY (DLCO) Procedures Routine Dyspnea and respiratory abnormalities Expected: 11/04/2024, Expires: 11/27/2025 LUNG VOLUMES (PLETHYSMOGRAPHY) Procedures Routine Dyspnea and respiratory abnormalities Expected: 11/04/2024, Expires: 11/27/2025 SPIROMETRY B/A BRONCHODILATOR Procedures Routine Dyspnea and respiratory abnormalities Expected: 11/04/2024, Expires: 11/27/2025 NITRIC OXIDE GAS DETERMINATION Procedures Routine Cough variant asthma Eosinophilic asthma Expected: 11/04/2024, Expires: 11/27/2025 RESPIRATORY MUSCLE PRESSURES (BUGLE PRESSURES) Procedures Routine Dyspnea and respiratory abnormalities Ordered: 10/28/2024 Scheduled Procedures Name Priority Associated Diagnoses Date/Ti me COLONOSCOPY FLEXIBLE PROXIMA L DIAGNOSTIC Recall History of colonic polyps Diarrhea Health Maintenance Due Date Last Done Comments Alpha-1 Antitrypsin 1976 Cologuard 12/23/2003 Fecal Occult Blood Test 12/23/2003 Sigmoidoscopy 12/23/2003 TSH 01/23/2023 01/23/2022, 07/21, 05/18/2021, Additional history exists Depression Monitoring 08/14/2024 08/14/2023 *COPD SEVERITY VERIFIED BY PFT 10/24/2024 *SPIROMETRY ONCE FOR ASTHMA-ADULT 10/24/2024 HbA1c 11/05/2024 05/07/2024, 11/19, 07/01/2022, Additional history exists COVID-19 Vaccine (6 - Moderna risk 2023- season) 2024 06/02/2024, 01/08/2022, 04/09/2021, Additional history exists Diabetic Eye Exam 01/04/2025 01/05/2024, , 12/13/2021, Additional history exists Mammogram 09/30/2025 09/30/2024, 09/18, 07/08/2023, Additional history exists O2 ASSESSMENT COMPLETED IN PAST YEAR FOR COPD 10/12/2025 10/12/2024 Colonoscopy 02/28/2028 02/27/2023, 11/19, 12/02/2013, Additional history [...] this encounter Medical Devices Implanted Type Area Farm Management Professor Device Identifier Shelf Expiration Date Model / Serial / Lot Coil Vortex 35 Pltinm [id number] - [id number] Implanted:Qty: 1 on 11/27/2021 by Sterling Cates MD at [place] [facility] Right: Upper Arm [employer] : NEURO INTR [id number] 08/15/2024 [id number] Coil Vortex 35 Pltinm [id number] - [id number] Implanted:Qty: 1 on 11/27/2021 by Sterling Cates MD at [facility] Right: Upper Arm [employer] : NEURO INTR [id number] 08/15/2024 [id number] Coil Vortex 35 Pltinm [id number] - [id number] Implanted:Qty: 1 on 11/27/2021 by Sterling Cates MD at [facility] Right: Upper Arm [employer] : NEURO INTR [id number] 08/15/2024 [id number] / / [id number] Coil Vortex 35 Pltinm [id number] - [id number] Implanted:Qty: 1 on 11/27/2021 by Sterling Cates MD at [facility] Right: Upper Arm [employer] : NEURO INTR [id number] 05/16/2024 [id number] / / [id number] Azur 35 Detachable 5mm 11cm - [id number] Implanted:Qty: 1 on 03/19/2022 by Jose Devine MD at [facility] Right: Wrist [employer] [id number] 10/18/2025 [id number] / / [id number] Azur 35 Detachable 5mm 11cm - [id number] Implanted:Qty: 1 on 03/19/2022 by Jose Devine MD at [facility] Right: Wrist [employer] [id number] 06/19/2026 [id number] / / [id number] Mesh Flat Sheet 10x14 [id number] - [id number] Implanted:Qty: 1 on 12/11/2022 by Eros Dash MD at [facility] N/A: Abdomen CR BARD : DAVOL [id number] 06/17/2027 [id number] / / [id number] Defib Welch Mri Alining Inspector-D - [id number] Implanted:Qty: 1 on 10/07/2024 by Arianne Carrizales IV, MD at [facility] [employer] : FANTASMA 07/03/2025 [id number] / [id number] / [id number] Envelope Antibacteral Tyrx - [id number] Implanted:Qty: 1 on 10/07/2024 by Arianne Carrizales IV, MD at [facility] [employer] : [employer] [id number] 06/02/2025 [id number] / / [id number] Lead Defib Sprint 6935m-62 - [id number] Implanted:Qty: 1 on 10/07/2024 by Arianne Carrizales IV, MD at [facility] [employer] : [employer] [id number] 08/03/2026 [id number] / [id number] / [id number] documented as of this encounter Visit Diagnoses Diagnosis Marginal ulcer- Primary Gastrojejunal ulcer, unspecified as acute or chronic, without mention of hemorrhage, perforation, or obstruction ESRD (end stage renal disease) on dialysis ([facility]) End stage renal disease Hypertensive 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 congestive heart failure and stage 5 chronic kidney disease on chronic dialysis ([facility]) Acute posthemorrhagic anemia Type 2 diabetes mellitus 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 dialysis, with long-term current use of insulin ([facility]) Hypothyroidism (acquired) Unspecified hypothyroidism Malignant melanoma of right upper extremity ([facility]) Aortic atherosclerosis ([facility]) Atherosclerosis of aorta Diabetic polyneuropathy associated with type 2 diabetes mellitus ([facility]) Advanced care planning/counseling discussion- Primary Other specified counseling Hypertensive 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 congestive heart failure and stage 5 chronic kidney disease on chronic dialysis ([facility]) Presence of cardiac pacemaker Cardiac pacemaker in situ SSS (sick sinus syndrome) ([facility]) Sinoatrial node dysfunction MINISTERIO on CPAP Obstructive sleep apnea (adult) (pediatric) Hypothyroidism (acquired) Unspecified hypothyroidism Type 2 diabetes mellitus 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 dialysis, with long-term current use of insulin ([facility]) S/P gastric bypass Bariatric surgery status ESRD (end stage renal disease) on dialysis ([facility]) End stage renal disease Recurrent ventral incisional hernia Incisional hernia without mention of obstruction or gangrene NO SHOW/FAILED TO KEEP APPOINTMENT- Primary Chronic diastolic heart failure ([facility])- Primary Chronic diastolic heart failure HTN, goal below 140/90 Unspecified essential hypertension Type 2 diabetes mellitus with hemoglobin A1c goal of less than 7.0% ([facility]) Hypothyroidism (acquired) Unspecified hypothyroidism Dyslipidemia, goal LDL below 100 Other and unspecified hyperlipidemia Major depressive disorder, single episode, moderate ([facility]) Major depressive disorder, single episode, moderate 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, with long-term current use of insulin ([facility]) Hyperparathyroidism, secondary renal ([facility]) Secondary hyperparathyroidism (of renal origin) End stage renal disease on dialysis ([facility]) End stage renal disease MINISTERIO on CPAP Obstructive sleep apnea (adult) (pediatric) Diarrhea, unspecified type Cough variant asthma- Primary Eosinophilic asthma Pulmonary eosinophilia Dyspnea and respiratory abnormalities Other dyspnea and respiratory abnormality documented in this encounter Advance Directives Documents on File Type Date Recorded Patient Director Hardware Expl anation POL 11/13/2020 POLST FRAGAA VALERIA ORDERS FOR LIFE-SUSTAINING TREATMENT * Full Code (Latest Code Status on File) Date Activated Date Inactivated Comments 10/05/2024 4:21 PM 10/14/2024 5:43 PM This order r eflects the patients wishes and were consensually agreed upon. Question Answer Comments Discussion of Advance Directives occurred with: Patient * Full Code Date Activated Date Inactivated Comments 12/11/2022 4:37 [...] Comments 01/28/2022 11:14 AM 01/28/2022 4:47 PM Healthcare Agents on File Name Relationship [facility] Zhen Finley Spouse Health Care Agent Care Teams Hotel Registration Clerk Relationship Specialty Start Date End Date Luis Fernando Rojas MD [address] [place] [address] PCP - General Family Medicine 09/23/16 documented as of this encounter
--- OUTSIDE RECORDS SUMMARY | 2024-11-04 03:09 | External Medical Summary | Summary of Care ---
Author Name Unknown Organization [facility] Address [address] [place] [address] Phone [phone] Care Team Providers Care Complex Director Name Role Phone Luis Fernando Rojas MD Primary Care Provider [phone] Encounter Details Date Type Department Care Team (Late st Contact Info) Description 11/02/2024 9:30 AM EDT [facility] [place] [address] Heidi Garcia, RN [address] [place] [address] Arrived Allergies Active Allergy Reactions Criticality Noted Date Comments Salvador Inhibitors Other (Please comment),Cough High HyperKalemia documented as of this encounter (statuses as of 11/02/2024) Medications Melatonin 10 MG Tablet Take 12 [...] 7.0% ([facility]) Use 4 times daily with insulin [...] (30 minutes before dialysis and another 5mg skilled nursing through dialysis if needed). 30 Tablet 3 [...] 1,000 mcgIndications:S/P gastric bypass 1000 mcg IM [id number] 10/15/2022 07/19/2025 Active vitamin b-12 (Cyanocobalamin) inj 1,000 mcgIndications:Morbid obesity with BMI of 40.0-44.9, adult (HCC),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 [id number] 10/17/2023 12/10/2024 Active Albuterol Sulfate (Proventil) (2.5 MG/3ML) 0.083% inhalation solution 2.5 mgIndications:Dyspnea and respiratory abnormalities 2.5 mg NEBULIZER PRN 10/28/2024 10/28/2025 Active Albuterol Sulfate (Proventil) (5 MG/ML) 0.5% *conc* inhalation solution 2.5 mgIndications:Dyspnea and respiratory abnormalities 2.5 mg NEBULIZER PRN 10/28/2024 10/28/2025 Active documented as of this encounter (statuses as of 11/02/2024) Active Problems Problem Noted Date Diagnosed Date [...] 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 10/15/2022 MORFIN RESEARCH OTHER*[id number] 01/01/2022 S/P gastric bypass 01/01/2022 Dialysis AV [...] Assessment & Plan (05/07/2021 11:01 AM EDT): [facility] since January, Dr. Magallanes. M-W-F from [...] 8:45 AM EDT): Gabapentin 600 mg at [facility] Assessment & Plan (05/07/2021 [...] as of this encounter (statuses as of 11/02/2024) Resolved Problems Problem Noted Date Diagnosed Date [...] long-term use 11/19/20182018 Overview (05/20/2019): Duplicate intermediate (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 insulin 11/19/2018 [...] T-tube placement 04/16/2017 05/29/2017 [employer] Other*[id number] 04/13/2013 08/27/2016 Overview (04/13/2013): Study Title: Genomic Markers for Patients with Cardiovascular Disease Project # [id number] Proof Passer: Siena Laws MD [phone] Hypertensive heart disease 03/25/2013 1 07/29/2016 Neuropathy, [...] as of this encounter (statuses as of 11/02/2024) Immunizations Name Administration Dates Next Due COVID-19 mRNA, LNP-s, No Pre serve, 2-Dose Series (Moderna) 04/09/2021,09/23/2020,08/19/2020 COVID-19, LNP-s, No Preserve , Espinoza-sucrose, Ages 12+ (Pfizer) 01/08/2022 COVID-19, MRNA-LNP, PF, 30 M CG/0.3 mL, 12 YRS AND ABOVE, IM (PFIZER-Comirnaty) 06/02/2024 HEPATITIS B VACCINE, RECOMB, 20 MCG/ML, ADULT (HEPLISAV-B) 09/05/2021,05/09/2021,04/04/2021,02/18 Hepatitis B, 20+ yrs 09/16/2018,04/14/2018,03/1104/11/2018 Pneumococcal Conjugate Vacci ne, 20-valent ([id number]) 06/22/2024,12/02/2023(Deferred: - pt states she's already received) [...] No 10/17/2024 Does the household have a re gular [...] money to buy more. Never true 10/18/19 Within the past 12 months, t he [...] Sign Reading Time Taken Comments Blood Pressure 110/64 11/02/2024 10:19 AM EDT Pulse 67 11/02/2024 10:19 AM EDT Temperature 36.2 °C (97.2 °F) 11/02/2024 1 0:19 AM EDT Respiratory Rate 18 11/02/2024 10:1 9 AM EDT Oxygen Saturation 94% 11/02/2024 10: 25 AM EDT with activity on RA Inhaled Oxygen Concentration - - Weight - [...] Author No 10/05/2024 3:55 PM EDT Honorio Ramírez, JOHN * Because of a physical, mental, or [...] Progress Notes * Heidi Garcia RN - 11/02/2024 9:30 AM EDT Images from the original note were not included. Current Concerns: Pt seen for return RNCM visit Saw Cardiology last week for hospital d/c follow up s/p AICD placement While having device interrogation, had a syncopal episode Continues to have swelling of left forearm from phlebitis from hospitalization - completed course of abx for this Cardio had ordered ultrasound to be done but not scheduled until November 25 Pt concerned as it has been getting dark around it Pain is sometimes 5/10 Spoke with bridge operator slip to see about getting US done sooner, next available pt cannot do d/t dialysis - pt put on fast track list to be notified in case another appt becomes available Advised pt to monitor the site and if coloring changes or becomes darker to notify [facility] - take pics Pt is having chest CT done today as ordered by Pulmonology Will be having PFT's done and possibly getting home oxygen depending on test results Pt recently has been having issues with oxygen level dropping with activity Pt's pulse ox at rest on room air is 93% Pulse ox with activity on room air went down to 94% after 5 minutes Pt does not currently have oxygen in the home She does feel her legs are weak since hospitalization Discussed getting PT but would not qualify for HH as she is not homebound Has been very busy and does not feel it is a good time to be able to get to outpatient PT but will try her home exercises She does feel her SOB has improved some since she first got home but still SOB with exertion, although pulse ox did not drop today She will go through will PFT's and pulm visits to see what those results show Blood sugar this am was 126 this am at 0430 She had a total of 4 lows in past 30 days, none in past 7 days Highest reading was 297, average is 175 Physical Exam: Review of Systems: Care Plan Goal Progress: Orders Placed: No orders of the defined types were placed in this encounter. Medications Given: Care Gaps: Care Gaps Care gaps closed this contact: Medications;Plan of Care (POC);Education (11/02/24 1038) Type of education: Clinical/disease (11/02/24 1038) Type of medication care gap: Medication adherence (11/02/24 1038) Type of plan of care (POC) care gap: Adjustment of plan of care (POC) and/or Integrated Care Plan (ICP);Education and review of exacerbation plan (11/02/24 1038) documented in this encounter Plan of Treatment Upcoming Encounters Date Type Department Care Team (Late st Contact Info) Description 11/02/2024 2:45 PM EDT Imaging Radiology [facility] [place] [address] [place] [address] 11/04/2024 9:00 AM EDT Telemedicine Pharmacy, [address] [place] [address] [facility] [address] [facility] [place] [address] 11/25/2024 7:30 AM EDT Imaging Vascular Lab, [facility] 2nd [facility] [place] [address] [place] [address] 11/25/2024 10:00 AM EDT Imaging Radiology [facility] [address] [place] [address] 11/25/2024 11:30 AM EDT Office Visit Pulmonary Medicine, [facility] [address] [place] [address] Storm Jose [facility] [address] [facility] [address] 11/25/2024 1:00 PM EDT PulmDiagnostic Pulmonary Function Lab, [facility] [address] [place] [address] [place] [address] [place] [address] 11/30/2024 10:00 AM EDT Nurse Only Nutrition & Weight Management, [facility] [address] [place] [phone] Nurse Boni Gi Nutrition [facility] [address] [place] [address] 12/02/2024 9:30 AM EDT Home Visit amber at [place], [facility] [address] [place] [address] Heidi Garcia RN [address] [place] [address] 12/21/2024 10:30 AM EDT Office Visit Gastroenterology, [facility] [address] [place] [phone] Emi Queen CRNP [address] [place] [address] 12/21/2024 2:20 PM EDT Office Visit Family [facility] [address] [place] [phone] Luis Fernando Rojas MD [address] [place] [address] 12/28/2024 10:00 AM EDT Cardiac Studies Cardiology, [facility] [address] [place] [phone] [facility] [address] [place] [address] 02/01/2025 8:20 AM EDT Office Visit Podiatry [facility] [address] [place] [phone] Calli Avila DPM [address] [place] [address] 03/10/2025 1:20 PM EDT Office Visit Dermatology, [address] [place] [address] Joanne Parks PA-C [address] [place] [address] [place] [address] Scheduled Procedures Name Priority Associated Diagnoses Date/Ti [...] this encounter Medical Devices Implanted Type Area Decating Machine Operator Device Identifier Shelf Expiration Date Model / Serial / Lot Coil Vortex 35 Pltinm [id number] - [id number] Implanted:Qty: 1 on 11/27/2021 by Sterling Cates MD at OR [facility] Right: Upper Arm [employer] : NEURO INTR [id number] 08/15/2024 [id number] Coil Vortex 35 Pltinm [id number] - [id number] Implanted:Qty: 1 on 11/27/2021 by Sterling Cates MD at OR [facility] Right: Upper Arm [employer] : NEURO INTR [id number] 08/15/2024 [id number] Coil Vortex 35 Pltinm [id number] - [id number] Implanted:Qty: 1 on 11/27/2021 by Sterling Cates MD at OR [facility] Right: Upper Arm [employer] : NEURO INTR [id number] 08/15/2024 [id number] Coil Vortex 35 Pltinm [id number] - [id number] Implanted:Qty: 1 on 11/27/2021 by Sterling Cates MD at OR [facility] Right: Upper Arm [employer] : NEURO INTR [id number] 05/16/2024 [id number] Azur 35 Detachable 5mm 11cm - [id number] Implanted:Qty: 1 on 03/19/2022 by Jose Devine MD at OR [facility] Right: Wrist [employer] [id number] 10/18/2025 [id number] / / [id number] Azur 35 Detachable 5mm 11cm - [id number] Implanted:Qty: 1 on 03/19/2022 by Jose Devine MD at OR [facility] Right: Wrist [employer] [id number] 06/19/2026 [id number] / / [id number] Mesh Flat Sheet 10x14 [id number] - [id number] Implanted:Qty: 1 on 12/11/2022 by Eros Dash MD at OR [facility] N/A: Abdomen CR BARD : DAVOL [id number] 06/17/2027 [id number] / / [id number] Defib [place] Mri Director Independent-D - [id number] Implanted:Qty: 1 on 10/07/2024 by Arianne Carrizales IV, MD at [facility]ARDIAC LABS [facility] [employer] : FANTASMA 07/03/2025 [id number] / [id number] / [id number] Envelope Antibacteral Tyrx - [id number] Implanted:Qty: 1 on 10/07/2024 by Arianne Carrizales IV, MD at [facility]ARDI[facility] [employer] : CRM [id number] 06/02/2025 [id number] / / [id number] Lead Defib Sprint 6935m-62 - [id number] Implanted:Qty: 1 on 10/07/2024 by Arianne Carrizales IV, MD at [facility]ARDI[facility] [employer] : CRM [id number] 08/03/2026 [id number] 62 / [id number] / [id number] documented as of this encounter Advance Directives Documents on File Type Date Recorded Patient Assistant Professor In Family Studies Expl anation POLST 11/13/2020 POLST PENNSYLVA VALERIA [...] Finley Spouse Health Care Agent Care Teams Complex Director Relationship Specialty Start Date End Date Luis Fernando Rojas MD [address] [place] [address] PCP - General Family Medicine 09/23/16 documented as of this encounter
--- OUTSIDE RECORDS SUMMARY | 2024-11-04 03:10 | External Medical Summary | Summary of Care ---
Author Name Unknown Organization [facility] Address [address] [place] [address] Phone [phone] Care Team Providers Care Financial Sales Manager Name Role Phone Luis Fernando Rojas MD Primary Care Provider [phone] Reason for Visit * Reason Onset Date Comments Appointment Canceled 10/28/2024 Encounter Details Date Type Department Care Team (Late st Contact Info) Description 10/28/2024 Telephone Gastroenterology, [address] [phone] Emi Queen CRNP [address] [place] [address] Appointment Canceled Allergies Active Allergy Reactions Criticality Noted Date Comments Salvador Inhibitors Other (Please comment),Cough High HyperKalemia documented as of this encounter (statuses as of 10/28/2024) Medications Melatonin 10 MG Tablet Take 12 [...] 14 days (supplied through [facility]) 7 Each 3 05/17/20 21 Active CPAP [...] 4 6:47 AM EDT 04/20/20 24 Active [facility]Device Kit Use as directed. 1 [...] (30 minutes before dialysis and another 5mg nursing home through dialysis if needed). 30 Tablet 3 10/11/19 25 Active Nitroglycerin 0.4 MG Sublingual Tablet Sublingual (Nitrostat)Indicati ons:Chronic diastolic heart failure (HCC),Aortic atherosclerosis (HCC) Place 1 Tablet under the tongue as needed for Pain, Chest. May repeat 3 times. If chest pain continues, call 911. 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 10/15/2022 MORFIN RESEARCH OTHER*[id number] 01/01/2022 S/P gastric bypass 01/01/2022 [address] AV [...] as of this encounter (statuses as of 10/28/2024) Resolved Problems Problem Noted Date Diagnosed Date [...] Insulin long-term use 11/19/20182018 Overview (05/20/2019): Duplicate skilled nursing (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 insulin 11/19/2018 10/08/2022 Morbid [...] T-tube placement 04/16/2017 05/29/2017 [employer] Other*[id number] 04/13/2013 08/27/2016 Overview (04/13/2013): Study Title: Genomic Markers for Patients with Cardiovascular Disease Project # [id number] Marriage And Family Teacher: Siena Laws MD [phone] Hypertensive heart disease 03/25/2013 1 07/29/2016 Neuropathy, [...] as of this encounter (statuses as of 10/28/2024) Immunizations Name Administration Dates Next Due COVID-19 mRNA, LNP-s, No Pre serve, 2-Dose Series (Moderna) 04/09/2021,09/23/2020,08/19/2020 COVID-19, LNP-s, No Preserve , Espinoza-sucrose, Ages 12+ (Pfizer) 01/08/2022 COVID-19, MRNA-LNP, PF, 30 M CG/0.3 mL, 12 YRS AND ABOVE, IM (PFIZER-Comirnaty) 06/02/2024 HEPATITIS B VACCINE, RECOMB, 20 MCG/ML, ADULT (HEPLISAV-B) 09/05/2021,05/09/2021,04/04/2021,02/18 Hepatitis B, 20+ yrs 09/16/2018,04/14/2018,03/1104/11/2018 Pneumococcal Conjugate Vacci ne, 20-valent (Ewrsbhz80) 06/22/2024,12/02/2023(Deferred: - pt states she's already received) [...] No 10/17/2024 Does the household have a [facility] source of income? (Household - [...] of Assessment Author No 10/05/2024 3:55 PM Honorio Joiner, JOHN * Are you blind or do you [...] Honorio Ramírez RN documented in this encounter Miscellaneous Notes * Telephone Encounter - Lanny Melchor OSA - 10/28/2024 8:45 AM EDT Called pt just to make sure she knew what was going on. Pt understood and agreed. Procedure cancelled and put on recall. * Telephone Encounter - Lanny Melchor OSA - 10/28/2024 8:45 AM EDT ----- Message from Emi Queen sent at 10/27/2024 1:39 PM EDT ----- Regarding: RE: [place] Patient Thanks for the heads up, we will cancel the colonoscopy. She has a recheck scheduled with me in December and will talk more about her symptoms and rescheduling the colonoscopy at that point. ----- Message ----- From: Yoanna Gomez CRNP Sent: 10/27/2024 12:24 PM EDT To: LUCRECIA Morales Subject: [place] Patient I just met Candi today after a complicated hospital stay at [facility]. She underwent BiV ICD upgrade 10/07/24, also diagnosed with severe MR which we are attempting to manage medically as she is not a great surgical candidate. Given her new device would recommend waiting 6 months from implant for routine procedures. For urgent needs can sometimes consider a shorter duration of 6 weeks. Was not sure how urgent the colonoscopy was that you have scheduled for May so wanted to reach out to see what your thoughts were. Could proceed if necessary but if it is only routine screening would recommend holding off for a couple of months. Thank You LUCRECIA Coronado documented in this encounter Plan of Treatment Upcoming Encounters Date Type Department Care Team (Late st Contact Info) Description 10/28/2024 10:30 AM EDT Office Visit Pulmonary Medicine, [facility] [address] [place] [phone] Storm Jose [facility] [address] [facility] [address] 11/02/2024 9:30 AM EDT [facility] Visit [facility] [address] [place] [address] Heidi Garcia RN [address] [address] 11/02/2024 1:40 PM EDT Office Visit Podiatry [facility] [address] [place] [phone] Calli Avila DPM [address] [place] [address] 11/04/2024 9:00 AM EDT Telemedicine Pharmacy, [facility] [address] [place] [address] [facility] [address] [facility] [place] [address] 11/25/2024 7:30 AM EDT Imaging [facility], [facility] [place] [address] [place] [address] 11/25/2024 10:00 AM EDT Imaging Radiology [facility] [address] [place] [address] 11/30/2024 10:00 AM EDT Nurse Only Nutrition & Weight Management, [facility] [address] [place] [address] [facility], Nurse Gi Nutrition [facility] [address] [place] [address] 12/21/2024 10:30 AM EDT Office Visit Gastroenterology, [facility] [address] [place] [address] Emi Queen CRNP [address] [place] [address] 12/21/2024 2:20 PM EDT Office Visit [facility] [address] [facility] [place] [phone] Luis Fernando Rojas MD [address] [facility] [place] [address] 12/28/2024 10:00 AM EDT Cardiac Studies Cardiology, [facility] [address] [place] [address] [facility] [address] [place] [address] 03/10/2025 1:20 PM EDT Office Visit Dermatology, [address] [place] [address] Joanne Parks PA-C [address] [place] [address] [place] [address] Scheduled Procedures Name Priority Associated Diagnoses Date/Ti [...] this encounter Medical Devices Implanted Type Area Piano Sounding Board Matcher Device Identifier Shelf Expiration Date Model / Serial / Lot Coil Vortex 35 Pltinm [id number] - [id number] Implanted:Qty: 1 on 11/27/2021 by Sterling Cates MD at OR [facility] Right: Upper Arm [employer] : NEURO INTR [id number] 08/15/2024 [id number] Coil Vortex 35 Pltinm [id number] - [id number] Implanted:Qty: 1 on 11/27/2021 by Sterling Cates MD at OR [facility] Right: Upper Arm [employer] : NEURO INTR [id number] 08/15/2024 [id number] Coil Vortex 35 Pltinm [id number] - [id number] Implanted:Qty: 1 on 11/27/2021 by Sterling Cates MD at OR [facility] Right: Upper Arm [employer] : NEURO INTR [id number] 08/15/2024 [id number] Coil Vortex 35 Pltinm [id number] - [id number] Implanted:Qty: 1 on 11/27/2021 by Sterling Cates MD at OR [facility] Right: Upper Arm [employer] : NEURO INTR [id number] 05/16/2024 [id number] Azur 35 Detachable 5mm 11cm - [id number] Implanted:Qty: 1 on 03/19/2022 by Jose Devine MD at OR [facility] Right: Wrist [employer] [id number] 10/18/2025 [id number] / / [id number] Azur 35 Detachable 5mm 11cm - [id number] Implanted:Qty: 1 on 03/19/2022 by Jose Devine MD at OR [facility] Right: Wrist [employer] [id number] 06/19/2026 [id number] / / [id number] Mesh Flat Sheet 10x14 [id number] - [id number] Implanted:Qty: 1 on 12/11/2022 by Eros Dash MD at OR [facility] N/A: Abdomen CR BARD : DAVOL [id number] 06/17/2027 [id number] / / [id number] Defib [place] Mri Document Preparer Microfilming-D - [id number] Implanted:Qty: 1 on 10/07/2024 by Arianne Carrizales IV, MD at CARDIAC LABS [facility] [employer] : CRM 07/03/2025 [id number] / [id number] / [id number] Envelope Antibacteral Tyrx - [id number] Implanted:Qty: 1 on 10/07/2024 by Arianne Carrizales IV, MD at [facility] [employer] : CRM [id number] 06/02/2025 [id number] / / [id number] Lead Defib Sprint 6935m-62 - [id number] Implanted:Qty: 1 on 10/07/2024 by Arianne Carrizales IV, MD at [facility] [employer] : CRM [id number] 08/03/2026 [id number] 62 / [id number] / [id number] documented as of this encounter Advance Directives Documents on File Type Date Recorded Patient Corporate Travel Manager Expl anation POLST 11/13/2020 POLST PEN[place]YLVA [...] Finley Spouse Health Care Agent Care Teams Financial Sales Manager Relationship Specialty Start Date End Date Luis Fernando Rojas MD [address] [place] [address] PCP - General Family Medicine 09/23/16 documented as of this encounter
--- OUTSIDE RECORDS SUMMARY | 2024-11-04 03:10 | External Medical Summary | Summary of Care ---
Author Name Unknown Organization [facility] Address [address] [place] [address] Phone [phone] Care Team Providers Care Manager It Training Name Role Phone Luis Fernando Rojas MD Primary Care Provider [phone] Encounter Details Date Type Department Care Team (Late st Contact Info) Description 10/24/2024 Result Scan Unspecified Department Ulises Stevenson, DO [address] [place] [address] <No scans attached> Allergies Active Allergy Reactions Criticality Noted Date Comments Salvador Inhibitors Other (Please comment),Cough High HyperKalemia documented as of this encounter (statuses as of 10/24/2024) Medications Melatonin 10 MG Tablet Take 12 [...] 3 09/04/2024 8:57 AM EST 4 Active OneTouch Verio In Vitro Strip (Glucose Blood) To test blood sugar 4 times daily. 400 Strip 1 04/22/2024 6:47 AM EDT 4 Active OneTouch Delica Lancets 33G To test blood sugar 4 times daily. 400 Each 1 04/22/2024 6:47 AM EDT 4 Active Verysell GroupTouch Verio w/Device Kit Use as directed. 1 [...] 3 09/20/2024 2:09 PM EST 5 Active Atorvastatin Calcium 40 MG Oral Tablet (Lipitor)Indicat ions:Dyslipidemi a, goal LDL below 100 Take 1 Tablet by mouth in the morning. 90 Tablet 1 08/06/2024 3:02 PM EST 5 Active Colestipol HCl 1 GM Oral Tablet (Colestid) take 2 tablets by mouth at noon daily if needed for diarrhea 180 Tablet 3 08/11/2024 3:46 PM EST 5 Active Insulin Glargine Solostar 100 UNIT/ML [...] per day 45 mL 4 5 Active Midodrine HCl 5 MG Oral Tablet (Proamatine) Take 1 Tablet by mouth daily as needed for Other (30 minutes before dialysis and another 5mg chcf through dialysis if needed). 30 Tablet 3 5 Active Doxycycline Hyclate 100 MG Oral Capsule Take 1 Capsule by mouth in the morning and 1 Capsule before bedtime. Do all this for 10 days. Until gone.. 20 Capsule 5 10/28/19 Active Nitroglycerin 0.4 MG Sublingual Tablet Sublingual (Nitrostat) Place 1 Tablet under the tongue as needed for Pain, Chest. May repeat 3 times. If chest pain continues, call 911. 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 10/15/2022 [facility] OTHER*[id number] 01/01/2022 S/P gastric bypass 01/01/[address] [...] AM EDT): Gabapentin 600 mg at [facility] Assessment & Plan (05/07/2021 11:11 AM [...] as of this encounter (statuses as of 10/24/2024) Resolved Problems Problem Noted Date Diagnosed Date [...] Insulin long-term use 11/19/20182018 Overview (05/20/2019): Duplicate termination clerk (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 insulin [...] T-tube placement 04/16/2017 05/29/2017 [employer] Other*[id number] 04/13/2013 08/27/2016 Overview (04/13/2013): Study Title: Genomic Markers for Patients with Cardiovascular Disease Project # [id number] Carbide Powder Processor: Siena Laws MD [phone] Hypertensive heart disease 03/25/2013 1 07/29/2016 Neuropathy, [...] as of this encounter (statuses as of 10/24/2024) Immunizations Name Administration Dates Next Due COVID-19 mRNA, LNP-s, No Pre serve, 2-Dose Series (Moderna) 04/09/2021,09/23/2020,08/19/2020 COVID-19, LNP-s, No Preserve , Espinoza-sucrose, Ages 12+ (Pfizer) 01/08/2022 COVID-19, MRNA-LNP, PF, 30 M CG/0.3 mL, 12 YRS AND ABOVE, IM (PFIZER-Comirnaty) 06/02/2024 HEPATITIS B VACCINE, RECOMB, 20 MCG/ML, ADULT (HEPLISAV-B) 09/05/2021,05/09/2021,04/04/2021,02/18 Hepatitis B, 20+ yrs 09/16/2018,04/14/2018,03/1104/11/2018 Pneumococcal Conjugate Vacci ne, 20-valent ([id number]) 06/22/2024,12/02/2023(Deferred: - pt states she's already received) [...] No 10/17/2024 Does the household have a [facility] source of income? (Household - for [...] Author No 10/05/2024 3:55 PM Honorio Joiner, RN * Are you blind or do [...] Honorio Ramírez RN documented in this encounter Plan of Treatment Upcoming Encounters Date Type Department Care Team (Late st Contact Info) Description 10/27/2024 8:30 AM EDT Office Visit Cardiology, [facility] [address] [place] [phone] Yoanna Gomez CRNP [address] [facility] [place] [address] 10/28/2024 10:30 AM EDT Office Visit Pulmonary Medicine, [facility] [address] [place] [phone] Storm Jose [facility] [address] [facility] [place] [address] 11/02/2024 9:30 AM EDT Home Visit [facility] [address] [place] [address] Jose, Heidi H, RN [address] [place] [address] 11/04/2024 9:00 AM EDT [facility] [place] [facility] [address] [phone] [place] [address] [place], [place] [address] 11/25/2024 10:00 AM EDT Imaging Radiology [facility] [address] [place] [address] 11/30/2024 10:00 AM EDT Nurse Only Nutrition & Weight Management, [facility] [address] [place] [address] [facility], Nurse Gi [facility] [address] [place] [address] 12/06/2024 10:30 AM EDT Office Visit Cardiology, [facility] [address] [place] [phone] Megan Alex PA-C [address] [place] [address] 12/09/2024 12:15 PM EDT Hospital Encounter OR GL, Operating Room, [facility] - 4th Floor [address] [phone] Himanshu Rivero DO [address] [place] [address] 12/09/2024 12:15 PM EDT - 12/09/2024 12:56 PM EDT Surgery [facility], Operating Room, [facility] - 4th Floor [address] [place] [phone] Himanshu Rivero DO [address] [place] [address] COLONOSCOPY FLEXIBLE PROXIMAL DIAGNOSTIC 12/21/2024 10:30 AM EDT Office Visit Gastroenterology, [facility] [address] [place] [phone] Emi Queen CRNP [address] [place] [address] 12/21/2024 2:20 PM EDT Office Visit Family [facility], [place] [address] [place] [phone] Luis Fernando Rojas MD [address] [place] [address] 12/28/2024 10:00 AM EDT Cardiac Studies Cardiology, [facility] [address] [place] [phone] [facility] [address] [place] [address] 03/10/2025 1:20 PM EDT Office Visit Dermatology, [facility] [address] [place] [phone] Joanne Parks PA-C [address] [place] [address] [place] [address] Scheduled Procedures Name Priority Associated Diagnoses Date/Ti [...] encounter Medical Devices Implanted Type Area Student Support Counselor Device Identifier Shelf Expiration Date Model / Serial / Lot Coil Vortex 35 Pltinm [id number] - [id number] Implanted:Qty: 1 on 11/27/2021 by Sterling Cates MD at OR [facility] Right: Upper Arm [employer] : NEURO INTR [id number] 08/15/2024 [id number] / / [id number] Coil Vortex 35 Pltinm [id number] - [id number] Implanted:Qty: 1 on 11/27/2021 by Sterling Cates MD at OR [facility] Right: Upper Arm [employer] : NEURO INTR [id number] 08/15/2024 [id number] 1 / / [id number] Coil Vortex 35 Pltinm [id number] - [id number] Implanted:Qty: 1 on 11/27/2021 by Sterling Cates MD at OR [facility] Right: Upper Arm [employer] : NEURO INTR [id number] 08/15/2024 [id number] 1 / / [id number] Coil Vortex 35 Pltinm [id number] - [id number] Implanted:Qty: 1 on 11/27/2021 by Sterling Cates MD at OR [facility] Right: Upper Arm [employer] : NEURO INTR [id number] 05/16/2024 [id number] / / [id number] Azur 35 Detachable 5mm 11cm - [id number] Implanted:Qty: 1 on 03/19/2022 by Jose Devine MD at OR [facility] Right: Wrist [employer] [id number] 10/18/2025 [id number] / / [id number] Azur 35 Detachable 5mm 11cm - [id number] Implanted:Qty: 1 on 03/19/2022 by Jose Devine MD at OR [facility] Right: Wrist [employer] [id number] 06/19/2026 [id number] / / [id number] Mesh Flat Sheet 10x14 [id number] - [id number] Implanted:Qty: 1 on 12/11/2022 by Erso Dash MD at OR [facility] N/A: Abdomen CR BARD : DAVOL [id number] 06/17/2027 [id number] / / [id number] Defib [place] [employer] Licensed Psychiatric Technician-D - [id number] Implanted:Qty: 1 on 10/07/2024 by Arianne Carrizales IV, MD at [facility] [employer] : FANTASMA 07/03/2025 [id number] / [id number] / [id number] Envelope Antibacteral Tyrx - [id number] Implanted:Qty: 1 on 10/07/2024 by Arianne Carrizales IV, MD at [facility] [employer] : [facility] [id number] 06/02/2025 [id number] / / [id number] Lead Defib Sprint 6935m-62 - [id number] Implanted:Qty: 1 on 10/07/2024 by Arianne Carrizales IV, MD at [facility] [employer] : [facility] [id number] 08/03/2026 [id number] 62 / [id number] / [id number] documented as of this encounter Procedures Procedure Name Priority Date/Time Associated Diagnosis Comments CARDIOLOGY SCANNED RESULT 10/24/2024 documented in this encounter Results * CARDIOLOGY SCANNED RESULT (10/24/2024) 10/24/2024 Ulises Stevenson DO OTHER Final Result documented in this encounter Advance Directives Documents on File Type Date Recorded Patient Geodesist Expl anation POLST 11/13/2020 POLST PENNSYLVA VALERIA [...] on File Name Relationship Healthcare Agent [facility] p Communication Zhen Finley Spouse Health Care Agent Care Teams Manager It Training Relationship Specialty Start Date End Date Luis Fernando Rojas MD [address] [place] [address] PCP - General Family Medicine 09/23/16 documented as of this encounter
--- OUTSIDE RECORDS SUMMARY | 2024-11-04 03:10 | External Medical Summary | Summary of Care ---
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 Name Role Phone Luis Fernando Rojas MD Primary Care Provider [phone] Reason for Visit * Reason Comments Follow Up Encounter Details Date Type Department Care Team (Late st Contact Info) Description 10/27/2024 8:30 AM EDT Office Visit Cardiology, [facility] [address] [place] [address] Yoanna Gomez CRNP [address] [place] [address] Aortic atherosclerosis (HCC)*; Chronic diastolic heart failure (HCC); SSS (sick sinus syndrome) (HCC); MINISTERIO (obstructive sleep apnea); PAT (paroxysmal atrial tachycardia) ([facility]) Allergies Active Allergy Reactions Criticality Noted Date Comments Salvador Inhibitors Other (Please comment),Cough High HyperKalemia documented as of this encounter (statuses as of 10/27/2024) Medications Melatonin 10 MG Tablet Take 12 [...] [facility]) 7 Each 3 05/17/20 21 [...] less than 7.0% ([facility]) Use 4 times daily with insulin [...] (30 minutes before dialysis and another 5mg long term through dialysis if needed). 30 Tablet 3 10/11/19 25 Active Doxycycline Hyclate 100 MG Oral Capsule Take 1 Capsule by mouth in the morning and 1 Capsule before bedtime. Do all this for 10 days. Until gone.. 20 Capsule 10/18/19 025 Active Nitroglycerin 0.4 MG Sublingual Tablet Sublingual (Nitrostat)Indicati ons:Chronic diastolic heart failure (HCC),Aortic atherosclerosis (HCC) Place 1 Tablet under the tongue as needed for Pain, Chest. May repeat 3 times. If chest pain continues, call 911. 25 Tablet 11 10/28/19 25 Active Nitroglycerin 0.4 MG Sublingual Tablet Sublingual (Nitrostat) Place 1 Tablet under the tongue as needed for Pain, Chest. May repeat 3 times. If chest pain continues, call 911. 25 Tablet 11 10/22/19 025 Discontin ued(Refil l) Hospital, Clinic, or Other Facility Administered Medication Ordered Dose Route Frequency Start Date End Date Status vitamin b-12 (Cyanocobalamin) inj 1,000 mcgIndications:S/P gastric bypass 1000 mcg IM [id number] 10/15/2022 07/19/2025 Active vitamin b-12 (Cyanocobalamin) inj 1,000 mcgIndications:Morbid obesity with BMI of 40.0-44.9, adult (HCC),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 [id number] 10/17/2023 12/11/19 25 Active documented as of this encounter (statuses as of 10/27/2024) Active Problems Problem Noted Date Diagnosed Date [...] 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 Magallanes. Renae-Celina from [...] 8:45 AM EDT): Gabapentin 600 mg at [facility] Assessment & Plan (05/07/2021 11:11 AM [...] as of this encounter (statuses as of 10/27/2024) Resolved Problems Problem Noted Date Diagnosed Date [...] T-tube placement 04/16/2017 05/29/2017 [employer] [facility] [employer] Other*[id number] 04/13/2013 08/27/2016 Overview (04/13/2013): Study Title: Genomic Markers for Patients with Cardiovascular Disease Project # [id number] Card Doffer: Siena Laws MD [phone] Hypertensive heart disease 03/25/2013 1 07/29/2016 Neuropathy, [...] as of this encounter (statuses as of 10/27/2024) Immunizations Name Administration Dates Next Due COVID-19 mRNA, LNP-s, No Pre serve, 2-Dose Series (Moderna) 04/09/2021,09/23/2020,08/19/2020 COVID-19, LNP-s, No Preserve , Espinoza-sucrose, Ages 12+ (Pfizer) 01/08/2022 COVID-19, MRNA-LNP, PF, 30 M CG/0.3 mL, 12 YRS AND ABOVE, IM (LikeBright-Comirnaty) 06/02/2024 HEPATITIS B VACCINE, RECOMB, 20 MCG/ML, ADULT (HEPLISAV-B) 09/05/2021,05/09/2021,04/04/2021,02/18 Hepatitis B, 20+ yrs 09/16/2018,04/14/2018,03/1104/11/2018 Pneumococcal Conjugate Vacci ne, 20-valent ([id number]) 06/22/2024,12/02/2023(Deferred: - pt states she's already received) [...] No 10/17/2024 Does the household have a [facility] source of income? (Household - [...] Sign Reading Time Taken Comments Blood Pressure 114/60 10/27/2024 8:37 AM EDT Pulse 68 10/27/2024 8:37 AM EDT Temperature - - Respiratory Rate 16 10/27/2024 8:37 AM EDT Oxygen Saturation - - Inhaled Oxygen Concentration - - Weight 99.3 kg (219 lb) 10/27/2024 8:37 AM EDT Pt reported, in wheelchair Height - - Body Mass Index 37.57 10/05/2024 3:55 PM EDT documented in this encounter Functional Status * Are you deaf or do you have serious difficulty hearing? Answer Date of Assessment Author No 10/05/2024 3:55 PM EDT Honorio Ramírez RN * Are you blind or do you have serious difficulty seeing, even when wearing glasses? Answer Date of Assessment Author No 10/05/2024 3:55 PM CASAT Honorio Ramírez RN * Do you have serious difficulty walking or climbing stairs? (5 years old or older) Answer Date of Assessment Author Yes 10/05/2024 3:55 PM CASAT Honorio Ramírez RN * Do you have [...] documented in this encounter Progress Notes * Yoanna Gomez CRNP - 10/27/2024 8:29 AM EDT Subjective Candi Finley is a 63 year old female. Chief Complaint Patient presents with Follow Up Cardiac Problems: SSS s/p DCP, BiV ICD Upgrade 09/2024 for syncope/NSVT PAT Severe MR with MS Mild AI/ Chronic Diastolic CHF, NYHA Class III ESRD on HD HTN HLD MINISTERIO on CPAP DM II Anemia NSVT Pulmonary HTN HPI: 63 year old female presents for hospital discharge follow up. Recent admission to [facility] in [place]. Was transferred from [facility] 10/05/24. Initially presented to the hospital after having 5 or 6 syncopal episodes over the last several weeks. Interrogation of her pacemaker indicated she was having several episodes of NSVT. Initially managed with IV amiodarone. She subsequently underwent cardiac catheterization showing nonobstructive CAD. She subsequently underwent Bi V upgrade on 10/07/24. Postprocedure she developed hypoxic respiratory failure secondary to flash pulmonary edema in the setting of severe MR. Reagan's managed with IV furosemide however this was unsuccessful due to her end-stage renal disease and needed hemodialysis to further manage her fluid status. Has been evaluated by Cardiothoracic surgery and deemed too high- risk for surgical MVR. ANTHONY was completed and was also not deemed a candidate for JACQUE. Discharged home with plan for attempted medical management. Does notice she is short of breath with activity but seems to be improving some since hospital discharge. Energy levels are slowly improving. She did have an IV site infiltrate in her left lower forearm what she has been on antibiotic therapy for, it remains very tender and swollen. Has been able to get through dialysis treatments without any difficulty blood pressures have been stable on the midodrine. Denies chest pain, palpitations, dizziness, syncope, edema, orthopnea and PND. No change in activity tolerance. Reports compliance with medications without any untoward side effects, or difficulty with affordability. PMH: 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 Type 2 diabetes mellitus with hemoglobin A1c goal of less than 7.0% ([facility]) Vitamin D deficiency HTN, goal below 140/90 Major depressive disorder, recurrent episode, moderate with seasonal pattern (HCC) Rosacea Hypothyroidism (acquired) Mitral annular calcification Type 2 diabetes mellitus with diabetic polyneuropathy, with long-term current use of insulin ([facility]) Chronic diastolic heart failure ([facility]) History of endometrial cancer Hyperparathyroidism, secondary renal (HCC) MINISTERIO on CPAP Stable proliferative diabetic retinopathy of both eyes associated with type 2 diabetes mellitus ([facility]) SALVADOR inhibitor intolerance SSS (sick sinus syndrome) ([facility]) PAT (paroxysmal atrial tachycardia) ([facility]) Gastroesophageal reflux disease without esophagitis Hypertensive 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 congestive heart failure and stage 5 chronic kidney disease on chronic dialysis ([facility]) Postsurgical malabsorption, not elsewhere classified Diabetic gastroparesis ([facility]) Type 2 diabetes mellitus 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 dialysis, with long-term current use of insulin ([facility]) Presence of cardiac pacemaker End stage renal disease on dialysis ([facility]) Marginal ulcer Aortic atherosclerosis ([facility]) Dialysis AV fistula malfunction ([facility]) [facility] OTHER*[id number] S/P gastric bypass 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 ([facility]) Pulmonary hypertension, unspecified (HCC) Recurrent ventral incisional hernia Major depressive disorder, single episode, moderate (HCC) 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, with long-term current use of insulin ([facility]) Ventricular tachycardia, non-sustained ([facility]) Arterial hypotension Anemia of renal disease Mitral stenosis with insufficiency Chronic hyponatremia Hyperphosphatemia Severe mitral regurgitation Pulmonary emphysema ([facility]) Uncomplicated asthma Current Outpatient Medications Medication Sig Dispense Refill [...] DAY OR OTHER MEDICATIONS 90 Tablet 3 Citalopram Hydrobromide 20 MG Oral Tablet (CeleXA) Take 1 Tablet by mouth in the morning. Omeprazole 20 MG Oral Capsule Delayed Release (PriLOSEC) Take 1 Capsule by mouth in the morning. 100 Capsule 3 Albuterol Sulfate 0.63 MG/3ML Inhalation Nebulization Solution (Accuneb) Inhale 1 Vial via nebulizer every 6 hours as needed for Wheezing. Gabapentin 300 MG Oral Capsule (Neurontin) Take [...] if needed for diarrhea 180 Tablet 3 Insulin Glargine Solostar 100 UNIT/ML Subcutaneous Solution Pen-injector (Basaglar KwikPen) Inject 10 Units under the skin in the morning. 15 mL 4 Insulin Lispro (1 Unit Dial) 100 UNIT/ML Subcutaneous Solution Pen-injector (HumaLOG KwikPen) Inject 12 units with breakfast, 12 units with lunch and 16 units with supper. Max dose of 40 units per day 45 mL 4 Midodrine HCl 5 MG Oral Tablet (Proamatine) Take 1 Tablet by mouth daily as needed for Other (30 minutes before dialysis and another 5mg long term through dialysis if needed). 30 Tablet 3 Doxycycline Hyclate 100 MG Oral Capsule Take 1 Capsule by mouth in the morning and 1 Capsule beforebedtime. Do all this for 10 days. Until gone.. 20 Capsule 0 Nitroglycerin 0.4 MG Sublingual Tablet Sublingual (Nitrostat) Place 1 Tablet under the tongue as needed for Pain, Chest. May repeat 3 times. If chest pain continues, call 911. 25 Tablet 11 FreeStyle Jennifer 2 Sensor Use as directed. Replace every 14 days (supplied through [facility]) 7 Each 3 BD Pen Needle Mini U/F 31G X 5 MM (Insulin Pen Needle) Use 4 times daily with insulin 400 Each 3 Diclofenac Sodium 1 % External Gel (Voltaren) Apply topically to affected area 3 times a day as needed for Pain. 100 g 2 OneTouch Verio In Vitro Strip (Glucose Blood) To test blood sugar 4 times daily. 400 Strip 1 OneTouch Delica Lancets 33G To test blood sugar 4 times daily. 400 Each 1 OneTouch Verio w/Device Kit Use as directed. 1 Kit 0 Current Facility-Administered Medications Medication Dose Route Frequency Provider Last Rate Last Admin vitamin b-12 (Cyanocobalamin) inj 1,000 mcg 1,000 mcg Intramuscular Q12 Weeks Luis Fernando Rojas MD 1,000 mcg at 09/02/24 1013 vitamin b-12 (Cyanocobalamin) inj 1,000 mcg 1,000 mcg Intramuscular Q12 Weeks Cleo Fonseca PA-C Past Medical History: Diagnosis Date Body mass index 40 and over, adult CHF NYHA class I ([facility]) 07/2009 Chronic marginal ulcer Deficiency of other vitamins Vit D Depressive disorder, not elsewhere classified Dialysis patient ([facility]) Diverticulosis of colon (without mention of hemorrhage) 12/02/2013 sigmoid & descending colon DM type 2 causing eye disease ([facility]) DM type 2 causing neurological disease ([facility]) neuropathy since 2006 DM type 2 causing renal disease ([facility]) DM type 2, goal A1c below [address] Monte Dyslipidemia, goal LDL below 100 primarily high triglycerides Endometrial cancer ([facility]) 1993 ESRD (end stage renal disease) on dialysis ([facility]) 03/14/2021 HTN, goal below 130/80 Kidney disease, chronic, stage III (GFR 30-59 ml/min) ([facility]) 10/02/2011 More specified code listed on PL Historical Malignant melanoma of right upper extremity ([facility]) 05/07/2021 Malignant neoplasm of corpus uteri ([facility]) 1993 Melanoma ([facility]) L calf R arm Motion sickness Neuropathy, diabetic ([facility]) 02/18/2013 Osteoarthritis of hip mild to mod bilat hip pain Other specified anemias low iron Other specified glaucoma denied by patient PONV (postoperative nausea and vomiting) Renal failure hemodialysis SBO (small bowel obstruction) ([facility]) 04/25/2017 Sleep apnea 07/2009 CPAP 11 cm H2O. C-flex 2 Past Surgical History: Procedure Laterality Date ABD WALL HERNIA REPAIR, LAP, REDUCIBLE N/A 01/28/2022 LAPAROSCOPIC VENTRAL/UMBILICAL HERNIA REPAIR, REDUCIBLE W OR W/O MESH performed by Honorio Ashford MD [place] [facility] [place]ESS, DIRECT ANASTOMOSIS Right 08/16/2021 ARTERIOVENOUS ANASTOMOSIS OPEN DIRECT ANY SITE performed by Sterling Cates MD at [facility] BREAST BIOPSY Left 12/26/2008 Usual Ductal Hyperplasia BREAST BIOPSY Left 09/20/2010 Benign BX LYMPH NODE DEEP AXIL Right 05/22/2021 BIOPSY LYMPH NODE DEEP AXILLARY OPEN performed by Diamond Rivero MD at OR [facility] COLONOSCOPY, DIAGNOSTIC (RECTUM) 12/02/2013 hyperplastic polyps, diverticulosis, repeat 5 yrs/done @ [facility] COLONOSCOPY, DIAGNOSTIC (RECTUM) 12/11/2017 adenomatous polyps, diverticulosis, repeat 5 yrs/[facility] COLONOSCOPY, DIAGNOSTIC (RECTUM) N/A 02/27/2023 diverticulosis/hemorrhoids/biopsies show adenomatous polyps/recall 5 years/Colonoscopy/[place] CORONARY ANGIOGRAPHY W/LEFT HEART CATH 04/13/2013 CORONARY ANGIOGRAPHY W/LEFT HEART CATH performed by Ulises Reed MD at [place] [facility] [place] ECHO, ANTHONY INTRAOPERATIVE N/A 10/12/2024 ECHOCARDIOGRAPHY, TRANSESOPHAGEAL; INCLUDING PROBE PLACEMENT, IMAGE ACQUISITION, INTERPRETATION ANDREPORT performed by [facility] at [place] [facility] [place] DIALYIS CIRCUIT VASCULAR EMBOLIZATION OCCLUSION ENDOVASC IMAGING Right 11/27/2021 EMBOLIZATION DIALYSIS CIRCUIT performed by tSerling Cates MD at [place] [facility] [place] EGD, FLEXIBLE, DIAGNOSTIC 05/03/2014 mild-mod inflammation/done @ [facility] EGD, FLEXIBLE, DIAGNOSTIC N/A 04/16/2017 ESOPHAGOGASTRODUODENOSCOPY (EGD), FLEXIBLE, TRANSORAL, DIAGNOSTIC performed by Félix Gilliam [place] [facility] [place]GD, FLEXIBLE, DIAGNOSTIC 05/05/2020 mild-mod inflammation on bx / ESOPHAGOGASTRODUODENOSCOPY (EGD), FLEXIBLE, TRANSORAL, DIAGNOSTIC performed by Adin Borja MD at ENDOSCOPY [facility] EGD, FLEXIBLE, DIAGNOSTIC N/A 04/25/2021 ESOPHAGOGASTRODUODENOSCOPY (EGD), FLEXIBLE, TRANSORAL, DIAGNOSTIC performed by Honorio Almendarez MD atENDOS[place] [facility] [place]GD, FLEXIBLE, DIAGNOSTIC 06/13/2021 gastrojejunal anastomosis characterized by ulceration, repeat 2 mo / [facility] IDENTIFY SENTINEL NODE, RADIOACTIVE TRACER Right 05/22/2021 INJECTION PROCEDURE FOR IDENTIFICATION SENTINEL NODE performed by Diamond Rivero MD at OR [facility] INFORMATION Left 2019 Pacemaker placement. INSERT/REPLACE DEFIBRILLATOR W/TRANSVERSE LEAD(S) Left 10/07/2024 BIVENTRICULAR DEFIBRILLATOR performed by Arianne Carrizales IV, MD at [facility] [place] INTRO CATH DIALYSIS CIRCUIT DX ANGIOGRAPHY FLUORO S&I Right 10/10/2022 AV FISTULOGRAM DIAGNOSTIC performed by Jose Devine MD at OR [facility] INTRO CATH DIALYSIS CIRCUIT W/TRANSCATH PLACEMENT IV STENT Right 03/19/2022 AV FISTULOGRAM STENT & PERIPHERAL ANGIOPLASTY performed by Jose Devine MD at [place] [facility] [place]TRO CATH DIALYSIS CIRCUIT W/TRANSCATH PLACEMENT IV STENT Right 05/13/2023 AV FISTULOGRAM STENT & PERIPHERAL ANGIOPLASTY performed by Williams Matt MD at [place] [facility] [place] INTRO CATH DIALYSIS CIRCUIT W/TRANSCATH PLACEMENT IV STENT Right 12/02/2023 AV FISTULOGRAM STENT & PERIPHERAL ANGIOPLASTY performed by Micheal Urena MD at [place] [facility] [place] INTRO CATH DIALYSIS CIRCUIT W/TRANSCATH PLACEMENT IV STENT Right 06/01/2024 AV FISTULOGRAM STENT & PERIPHERAL ANGIOPLASTY performed by Beto Torrez MD at [place] [facility] [place]TRO CATH DIALYSIS CIRCUIT W/TRANSLUM BALLOON ANGIOPLASTY Right 11/27/2021 AV FISTULOGRAM & PERIPHERAL ANGIOPLASTY performed by Sterling Cates MD at [place] [facility] [place] INTRO CATH DIALYSIS CIRCUIT W/TRANSLUM BALLOON ANGIOPLASTY Right 05/30/2022 AV FISTULOGRAM & PERIPHERAL ANGIOPLASTY performed by Beto Torrez MD at OR [facility] INTRO CATH DIALYSIS CIRCUIT W/TRANSLUM BALLOON ANGIOPLASTY Right 02/25/2023 AV FISTULOGRAM & PERIPHERAL ANGIOPLASTY performed by Jose Devine MD at [place] [facility] INTRO CATH DIALYSIS CIRCUIT W/TRANSLUM BALLOON ANGIOPLASTY Right 03/30/2024 AV FISTULOGRAM & PERIPHERAL ANGIOPLASTY performed by Micheal Urena MD at [place] [facility] [place] INTRO CATH DIALYSIS CIRCUIT W/TRANSLUM BALLOON ANGIOPLASTY Right 09/16/2024 AV FISTULOGRAM & PERIPHERAL ANGIOPLASTY performed by Sterling Cates MD at OR [facility] IR DUPLEX ULTRASOUND (FOR INTERVENTIONAL RADIOLOGY USE ONLY) 03/02/2021 IR FISTULAGRAM AV DIALYSIS SHUNT IR VENOUS ACCESS NON-MEDIPORT 07/18/2022 LAPAROSCOPE PROCEDURE, LIVER N/A 04/16/2017 UNLISTED LAPAROSCOPIC PROCEDURE LIVER performed by Sukumar Polanco MD at [place] [facility] [place] LAPAROSCOPE PROCEDURE, LIVER N/A 01/28/2022 UNLISTED LAPAROSCOPIC PROCEDURE LIVER performed by Honorio Ashford MD at [place] [facility] [place] LAPAROSCOPIC GASTRIC BYPASS/JODY-EN-Y N/A 04/16/2017 LAPAROSCOPIC GASTRIC RESTRICTIVE BYPASS JODY EN Y performed by Sukumar Polanco MD at [place] [facility] [place] LAPAROSCOPY; CHOLECYSTECTOMY N/A 04/16/2017 LAPAROSCOPIC CHOLECYSTECTOMY performed by Sukumar Polanco MD at [place] [facility] [place] MISCELLANEOUS ORDER ([facility] ONLY) [...] performed by Sukumar Polanco MD at [place] [facility] [place] REPLACE,COMP,FLACO CENT ACC DEV N/A 03/22/2021 REPLACEMENT COMPLETE TUNNELED CENTRAL CATHETER NO PORT performed by Luis Fernando Hassan DO at OR [facility] REVISE STOMACH-BOWEL FUSION N/A 01/28/2022 REVISION GASTROJEJUNAL ANASTOMOSIS performed by Honorio Ashford MD at [place] [facility] RMV MALG LSN TRK/ARM/LG >4.0CM Right 05/22/2021 EXCISION MALIGNANT TRUNK ARM LEG OVER 4CM performed by Diamond Rivero MD at OR [facility] RPR AA HERNIA 1ST 3-10 CM REDUCIBLE N/A 12/11/2022 INCISIONAL/VENTRAL/SPIGELIAN HERNIA REPAIR INITIAL 3-10 CM REDUCIBLE performed by Eros Dash MD at [place] [facility] [place] [place] TOTAL ABD HYSTERECTOMY W/WO REMOVAL OF TUBE(S) Bilateral age 33 TOTAL HYSTERECTOMY TAHBSO (endometrial ca) TRANSECTION VAGUS NRV,TRUNCAL N/A 01/28/2022 LAPAROSCOPIC TRANSECTION VAGUS NERVES TRUNCAL performed by Honorio Ashford MD at [place] [facility] [place] UPPER GI ENDOSCOPY Review of patient's allergies [...] level: Not on file Occupational History Employer: [employer] Tobacco Use Smoking status: Never Passive exposure: Never Smokeless tobacco: Never Vaping Use Vaping status: Never Used Substance and Sexual Activity Alcohol use: No Drug use: No Sexual activity: Yes Partners: Male control/protection: Surgical Comment: hysterectomy Other Topics Concern Not on file Social History Narrative Employed: [employer] - [employer] Social Needs Financial Resource Strain: Low Risk (10/17/2024) Financial Resource Strain Do you have any trouble paying for your medications, or do you think you might in the future? (Adult - for ages 18 years and over): No Does your family have trouble paying for medicine? (Household - for ages 0-17 years): Not on file Food Insecurity: No Food Insecurity (10/17/2024) Food Insecurity Worried About Running Out of Food in the Last Year: Never true Ran Out of Food in the Last Year: Never true Do you need food for this week? (Adult - for ages 18 years and over): No Transportation Needs: No Transportation Needs (10/17/2024) Transportation Needs Do you have trouble getting a ride to medical visits or work? (Adult - for ages 18 years and over):Not on file Does your family have a hard time getting a ride to doctors’ visits? (Household - for ages 0-17 years): Not on file Has lack of transportation kept you from medical appointments, meetings, work, or from getting things needed for daily living? Check all that apply. (Adult - for ages 18 years and over): No Do you (or your family) have trouble finding or paying for a ride (transportation)? (Household - for ages 0-17 years): Not on file Social Connections: Socially Integrated (10/17/2024) Social Connections How often do you feel lonely or isolated from those around you? (Adult - for ages 18 years and over): Never Housing Stability: Low Risk (10/17/2024) Housing Stability Do you currently live in a mcc or have no steady place to sleep at night? (Adult - for ages 18 years and over): No Do you think you are at risk of becoming homeless? (Adult - for ages 18 years and over): Not on file Does your family worry about paying for your home or becoming homeless? (Household - for ages 0-17 years): Not on file Are you homeless or worried that you might be in the future? (Adult - for ages 18 years and over): No Are you (or your family) homeless or worried that you might be in the future? (Household - for ages0-17 years): Not on file Review of Systems Constitutional: Positive for fatigue. Negative for activity change and unexpected weight change. Eyes: Negative for visual disturbance. Respiratory: Negative for shortness of breath and wheezing. Cardiovascular: Negative for chest pain, palpitations and leg swelling. Gastrointestinal: Negative for blood in stool, constipation, diarrhea, nausea and vomiting. Genitourinary: Negative for hematuria. Musculoskeletal: Negative for arthralgias and gait problem. Skin: Positive for wound. Left forearm scab/swelling Neurological: Negative for dizziness and syncope. Objective BP 114/60 | Pulse 68 | Resp 16 | Wt 99.3 kg (219 lb) Comment: Pt reported, in wheelchair | BMI 37.57 kg/m² | BSA 2.12 m² Physical Exam Vitals and nursing note reviewed. Constitutional: General: She is awake. She is not in acute distress. Appearance: Normal appearance. She is well-developed and overweight. She is not ill-appearing. HENT: Head: Normocephalic and atraumatic. Eyes: General: No scleral icterus. Extraocular Movements: Extraocular movements intact. Conjunctiva/sclera: Conjunctivae normal. Pupils: Pupils are equal, round, and reactive to light. Neck: Thyroid: No thyromegaly. Vascular: No carotid bruit or JVD. Cardiovascular: Rate and Rhythm: Normal rate and regular rhythm. Pulses: Normal pulses. Carotid pulses are 2+ on the right side and 2+ on the left side. Radial pulses are 2+ on the right side and 2+ on the left side. Posterior tibial pulses are 2+ on the right side and 2+ on the left side. Heart sounds: S1 normal and S2 normal. Murmur heard. Arteriovenous access: Right arteriovenous access is present. Pulmonary: Effort: Pulmonary effort is normal. No respiratory distress. Breath sounds: Normal breath sounds. No wheezing, rhonchi or rales. Chest: Comments: Left pectoral region; ICD site no evidence of threatened erosion. Skin intact. No erythema/edema. Healing well, very small linear scan on medial aspect of incision Abdominal: General: Bowel sounds are normal. There is no distension. Palpations: Abdomen is soft. There is no mass. Tenderness: There is no abdominal tenderness. Musculoskeletal: General: No swelling. Cervical back: Neck supple. Right lower leg: No edema. Left lower leg: No edema. Skin: General: Skin is warm and dry. Capillary Refill: Capillary refill takes less than 2 seconds. Findings: No rash or wound. Comments: LFA scab edematous area aprox 3 in in diamteter Neurological: General: No focal deficit present. Mental Status: She is alert and oriented to person, place, and time. Psychiatric: Attention and Perception: Attention and perception normal. Behavior: Behavior is cooperative. Judgment: Judgment normal. 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 There is severe mitral annular calcification. There is a cleft in between P1 and P2. Moderate, progressive mitral stenosis is present. Mean gradient of 7mmHg when HR was 60. The qualitative LV ejection fraction is 55-59% (normal). Moderate tricuspid regurgitation is present. Aortic stenosis is absent. 10/11/24 The examination is inadequate to evaluate the referral indication. The ANTHONY probe was unable to be passed twice due to inadequate sedation Sedation was limited by significant hypotension. Pt had dialysis earlier in day. During the attempted intubation attempts pt dropped her)O2 sats into the 80s May be reasonable to repeat TTE to reassess the MR now that the pt has had volume taken off. Given her mitral stenosis she is not a candidate for JACQUE 02/05/25 The examination is adequate to evaluate the referral indication. The qualitative LV ejection fraction is 55-59% (normal). The LV wall thickness is mildly increased (concentric). No LV segmental wall motion abnormalities. The right ventricular cavity is mildly dilated. The right ventricular systolic function is qualitatively normal. Mild aortic valve stenosis is present. Mild aortic valve regurgitation is present. Mild mitral stenosis is present. Severe mitral regurgitation is present. The estimated pulmonary artery systolic pressure is 50 mmHg. Moderate pulmonary hypertension is present. Cardiac Cath 10/06/24 Moderate single vessel non-obstructive CAD -prox LAD 50% stenosis --> FFR 0.83 (not hemodynamically significant thus PCI deferred) -luminal irregularities elsewhere * LVEDP 17 mmHg (mildly elevated) Labs Latest Reference Range & Units 10/12/24 04:45 10/13/24 04:29 10/14/24 04:16 SODIUM 135 - 146 mmol/L 134 (L) 132 (L) 132 (L) POTASSIUM 3.5 - 5.1 mmol/L 5.1 5.0 4.6 CHLORIDE 98 - 107 mmol/L 95 (L) 94 (L) 93 (L) CO2 22 - 32 mmol/L 24 23 24 BUN 6 - 20 mg/dL 29 (H) 38 (H) 24 (H) CREATININE 0.5 - 1.0 mg/dL 5.3 (H) 6.6 (H) 4.3 (H) EGFR >=60 mL/min 8 (L) 7 (L) 11 (L) ANION GAP 7 - 15 mmol/L 15 15 15 GLUCOSE 70 - 120 mg/dL 168 (H) 133 (H) 141 (H) CALCIUM 8.4 - 10.2 mg/dL 9.4 9.5 9.3 Phosphorus 2.5 - 4.8 mg/dL 5.3 (H) 5.5 (H) 4.0 Protein 6.0 - 8.3 g/dL 6.1 CBC Rpt ! Rpt ! Rpt ! WBC 4.00 - 10.80 K/uL 9.58 8.93 10.10 RBC 3.85 - 5.15 M/uL 2.94 2.68 2.61 HGB 12.0 - 15.3 g/dL 8.8 (L) 8.2 (L) 7.9 (L) HCT 36.0 - 45.2 % 28.0 (L) 25.7 (L) 25.4 (L) MCV 81.5 - 97.5 fL 95.2 95.9 97.3 MCH 27.0 - 34.0 pg 29.9 30.6 30.3 MCHC 32.0 - 36.0 g/dL 31.4 31.9 31.1 RDW 11.5 - 15.5 % 16.1 16.2 16.7 PLT 140 - 400 K/uL 209 190 207 MPV 6.6 - 11.1 fL 10.0 10.9 10.5 Albumin 3.8 - 5.0 g/dL 3.4 (L) AST 10 - 35 U/L 26 ALT 10 - 35 U/L <5 (L) Alkaline Phosphatase 35 - 130 U/L 112 Bilirubin, Total <=1.2 mg/dL 0.3 Bilirubin, Direct 0.0 - 0.3 mg/dL <0.1 Impression SSS s/p DCP BiV ICD Upgrade 09/2024 for syncope/NSVT PAT Chronic Diastolic CHF, NYHA Class III Severe MR with MS Mild AI/ ESRD on HD HTN, now hypotensive on midodrine HLD MINISTERIO on CPAP DM II Anemia NSVT Pulmonary HTN Gastric Bypass 2016 Plan: -HR and BP well controlled today -device checks reveal stable pacing thresholds with adequate pacing burden. -continue to follow with device clinic -left forearm swelling is persistent despite antibiotic would recommend ultrasound in the forearm for further evaluation -reviewed signs and symptoms that would warrant sooner evaluation given the severe MR including fluid retention or persistent hypotension limiting dialysis -at that juncture would need to revisit the discussion of potential high-risk surgical procedure with CT surgery -continue midodrine, atorvastatin, aspirin -encouraged continued compliance with CPAP -appears that she is also scheduled for colonoscopy in November will coordinate with the ordering provider to see if this is routine or urgent, would recommend holding off for routine screening given the new device placement -Educated patient on caution with change in positions to minimize symptomatic orthostatic hypotension -Discussed importance of diet & exercise with the patient. -Discussed with patient subtle changes in how they are feeling or completing daily activities to contact us sooner; don't wait days or weeks. DISPOSITION: Follow up 3 months or if symptoms worsen/fail to improve. All questions were answered to the patients satisfaction. Patient advised to report to ED with any and all emergencies. The patient agrees to the above plan and will call with additional questions or concerns. I spent a total of Greater than 55 mins (exact time 75 mins) on the date of service in preparation,delivery, and documentation of the care provided to Candi Finley excluding any time spent in theperformance of separately billed services or time spent by another provider/QHP. [facility], [place] [address] [facility] [phone] This chart was completed in part utilizing [employer] Speech Voice Recognition Software. Grammatical errors, random word insertions, pronoun errors, and incomplete sentences are an occasional consequence of this system due to software limitations, ambient noise, and hardware issues. Any formal questions or concerns about the content, text, or information contained within the body of this dictation should be directly addressed to the provider for clarification. documented in this encounter Nursing Notes * Hian Hendricks LPN - 10/27/2024 8:34 AM EDT Examination Room: 17 Name: Candi Finley Date of : 1960 Reason for Visit: Follow up Problems/Concerns: many Interim Hosp(s): September 2024 new device, syncope, Chest Pain/SOB: Denies CP, has SOB - O2 ordered does not have yet MyChart Discussed: ALREADY ACTIVE Patient was instructed to not get up on the exam table until directed and assisted by their provider; patient is to remain seated in the chair/ wheelchair/ exam table for fall prevention and safety reasons. Patient is aware staff will assist stepping down off exam table with personnel. documented in this encounter Plan of Treatment Upcoming Encounters Date Type Department Care Team (Late st Contact Info) Description 10/28/2024 10:30 AM EDT Office Visit Pulmonary Medicine, [facility] [address] [place] [phone] Storm Jose MD [address] [place] [address] 11/02/2024 9:30 AM EDT [facility] [place] [address] [place] [address] Heidi Garcia RN [address] [place] [address] 11/02/2024 1:40 PM EDT Office Visit Podiatry [facility] [address] [place] [phone] Calli Avila DPM [address] [place] [address] 11/04/2024 9:00 AM EDT Telemedicine Pharmacy, [facility] [address] [place] [phone] [facility] [address] [facility] [address] 11/25/2024 7:30 AM EDT Imaging Vascular Lab, [facility] II 2nd Floor, [place] [address] [place] [phone] 11/25/2024 10:00 AM EDT Imaging Radiology [facility] [address] [place] [phone] 11/30/2024 10:00 AM EDT Nurse Only Nutrition & Weight Management, [facility] [address] [place] [phone] Boni, Nurse Gi Nutrition [facility] [address] [place] [address] 12/09/2024 12:15 PM EDT Hospital Encounter OR [facility], Operating Room, [facility] - 4th Floor [address] [facility] [place] [phone] Himanshu Rivero, [address] [place] [address] 12/09/2024 12:15 PM EDT - 12/09/2024 12:56 PM EDT Surgery OR [facility], Operating Room, [facility] - 4th Floor [address] [facility] [place] [phone] Himanshu Rivero, [address] [place] [address] COLONOSCOPY FLEXIBLE PROXIMAL DIAGNOSTIC 12/21/2024 10:30 AM EDT Office Visit Gastroenterology, [facility] [address] [phone] Emi Queen CRNP [address] [place] [address] 12/21/2024 2:20 PM EDT Office Visit [facility] [address] [place] [phone] Luis Fernando Rojas MD [address] [place] [address] 12/28/2024 10:00 AM EDT Cardiac Studies Cardiology, [facility] [address] [place] [phone] [facility] Pacer [facility] [address] [place] [address] 03/10/2025 1:20 PM EDT [facility] [address] [place] [phone] Joanne Parks PA-C [address] [place] [address] [address] [place] [address] Scheduled Orders Name Type Priority Associated Diagnoses Orde r Schedule VASC DUPLEX VENOUS UE UNILAT Medical Imaging Routine Chronic diastolic heart failure (HCC) Aortic atherosclerosis (HCC) SSS (sick sinus syndrome) (HCC) MINISTERIO (obstructive sleep apnea) PAT (paroxysmal atrial tachycardia) (HCC) Expected: 10/27/2024, Expires: 11/26/2025 Scheduled Procedures Name Priority Associated Diagnoses Date/Ti [...] this encounter Medical Devices Implanted Type Area Painter Drum Device Identifier Shelf Expiration Date Model / Serial / Lot Coil Vortex 35 Pltinm [id number] - [id number] Implanted:Qty: 1 on 11/27/2021 [place] Sterling Cates [place] [facility] [place] Upper Arm [employer] : NEURO INTR [id number] 08/15/2024 [id number] / [id number] Coil Vortex 35 Pltinm 660990 - [id number] Implanted:Qty: 1 on 11/27/2021 by Sterling Cates MD [place] [facility] [place] Upper Arm [employer] : NEURO INTR [id number] 08/15/2024 [id number] / / [id number] Coil Vortex 35 Pltinm [id number] - [id number] Implanted:Qty: 1 on 11/27/2021 by Sterling Cates MD [place] [facility] [place]: Upper Arm [employer] : NEURO INTR [id number] 08/15/2024 [id number] / / [id number] Coil Vortex 35 Pltinm [id number] - [id number] Implanted:Qty: 1 on 11/27/2021 by Sterling Cates MD [place] [facility] [place]: Upper Arm [employer] : NEURO INTR [id number] 05/16/2024 [id number] / / [id number] Azur 35 Detachable 5mm 11cm - [id number] Implanted:Qty: 1 on 03/19/2022 by Jose Devine MD [place] [facility]: Wrist [employer] [id number] 10/18/2025 [id number] / / [id number] Azur 35 Detachable 5mm 11cm - [id number] Implanted:Qty: 1 on 03/19/2022 by Jose Devine MD [place] [facility] Wrist [employer] [id number] 06/19/2026 [id number] / / [id number] Mesh Flat Sheet 10x14 [id number] - [id number] Implanted:Qty: 1 on 12/11/2022 by Eros Dash MD [place] [facility] [place]/A: Abdomen CR BARD : DAVOL [id number] 06/17/2027 [id number] / / [id number] Defib [place] Mri Yard Inspector-D - [id number] Implanted:Qty: 1 on 10/07/2024 by Arianne Carrizales IV, MD at [place] [facility] [employer] : CRM 07/03/2025 [id number] / [id number] / [id number] Envelope Antibacteral Tyrx - [id number] Implanted:Qty: 1 on 10/07/2024 by Arianne Carrizales IV, MD at [place] [facility] [place] [employer] : CRM [id number] 06/02/2025 [id number] / / [id number] Lead Geenaib Sprint 6935m-62 - [id number] Implanted:Qty: 1 on 10/07/2024 by Arianne Carrizales IV, MD at [place] [facility] [place] [employer] : CRM [id number] 08/03/2026 [id number] / [id number] / [id number] documented as of this encounter Visit Diagnoses Diagnosis Marginal ulcer- Primary Gastrojejunal ulcer, unspecified as acute or chronic, without mention of hemorrhage, perforation, or obstruction ESRD (end stage renal disease) on dialysis ([facility]) End stage renal disease Hypertensive 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 congestive heart failure and stage 5 chronic kidney disease on chronic dialysis ([facility]) Acute posthemorrhagic anemia Type 2 diabetes mellitus 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 dialysis, with long-term current use of insulin ([facility]) Hypothyroidism (acquired) Unspecified hypothyroidism Malignant melanoma of right upper extremity ([facility]) Aortic atherosclerosis ([facility]) Atherosclerosis of aorta Diabetic polyneuropathy associated with type 2 diabetes mellitus ([facility]) Advanced care planning/counseling discussion- Primary Other specified counseling Hypertensive 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 congestive heart failure and stage 5 chronic kidney disease on chronic dialysis ([facility]) Presence of cardiac pacemaker Cardiac pacemaker in situ SSS (sick sinus syndrome) ([facility]) Sinoatrial node dysfunction MINISTERIO on CPAP Obstructive sleep apnea (adult) (pediatric) Hypothyroidism (acquired) Unspecified hypothyroidism Type 2 diabetes mellitus 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 dialysis, with long-term current use of insulin ([facility]) S/P gastric bypass Bariatric surgery status ESRD (end stage renal disease) on dialysis ([facility]) End stage renal disease Recurrent ventral incisional hernia Incisional hernia without mention of obstruction or gangrene NO SHOW/FAILED TO KEEP APPOINTMENT- Primary Chronic diastolic heart failure ([facility])- Primary Chronic diastolic heart failure HTN, goal below 140/90 Unspecified essential hypertension Type 2 diabetes mellitus with hemoglobin A1c goal of less than 7.0% ([facility]) Hypothyroidism (acquired) Unspecified hypothyroidism Dyslipidemia, goal LDL below 100 Other and unspecified hyperlipidemia Major depressive disorder, single episode, moderate ([facility]) Major depressive disorder, single episode, moderate 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, with long-term current use of insulin (HCC) Hyperparathyroidism, secondary renal (HCC) Secondary hyperparathyroidism (of renal origin) End stage renal disease on dialysis (HCC) End stage renal disease MINISTERIO on CPAP Obstructive sleep apnea (adult) (pediatric) Diarrhea, unspecified type Aortic atherosclerosis (HCC)- Primary Atherosclerosis of aorta Chronic diastolic heart failure (HCC) Chronic diastolic heart failure SSS (sick sinus syndrome) (HCC) Sinoatrial node dysfunction MINISTERIO (obstructive sleep apnea) Obstructive sleep apnea (adult) (pediatric) PAT (paroxysmal atrial tachycardia) (HCC) Paroxysmal supraventricular tachycardia History of colonic polyps Personal history of colonic polyps Diarrhea documented in this encounter Advance Directives Documents on File Type Date Recorded Patient De Icer Finisher Expl anation POLST 11/13/2020 POLST FLAKITOAlo VALERIA ORDERS FOR LIFE-SUSTAINING TREATMENT * Full [...] Agents on File Name Relationship Healthcare Agent Ameliasc p Communication Zhen Finley Spouse Health Care Agent Care Teams 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
--- OUTSIDE RECORDS SUMMARY | 2024-11-04 03:10 | External Medical Summary | Summary of Care ---
Author Name Unknown Organization [facility] Address [address] [place] [address] Phone [phone] Care Team Providers Care Trauma Coordinator Name Role Phone Luis Fernando Rojas MD Primary Care Provider [phone] Reason for Visit * Reason Comments Diarrhea * Evaluate & Treat - Unlimited Visits (Within 10 days (routine)) - Authorized Specialty Diagnoses / Procedures Referred By Mikey t Referred To Contact Gastroenterology Diagnoses Diarrhea of presumed infectious origin Luis Fernando Rojas MD Phone: tel: fax: Referral ID Status Reason Start Date Expiration Date Visits Requested Visits Authorized [id number] Authorized Specialty Services Required 03/08/[phone] Encounter Details Date Type Department Care Team (Late st Contact Info) Description 08/10/2024 8:00 AM EST Telemedicine Gastroenterology, [facility] [address] [address] Belinda Turner CRNP [address] [address] Chronic diarrhea* Allergies Active Allergy Reactions Criticality [...] [place]) 7 Each 3 Active CPAP every night at bedtime. 12 Active ProRenal + D Oral Tablet Take by mouth 1 Tablet daily . 022 Active Vitamin D 125 MCG (5000 UT) [...] g 2 02/17/20 24 2:10 PM EDT Active Citalopram Hydrobromide 20 MG Oral Tablet (CeleXA) Take 1 Tablet by mouth in the morning. Active Omeprazole 20 MG Oral Capsule Delayed Release (PriLOSEC)Indic ations:Gastroes ophageal reflux disease without esophagitis Take 1 Capsule by mouth in the morning. 100 Capsule 3 09/04/19 25 8:57 AM EST Active OneTouch Verio In Vitro Strip (Glucose Blood) To test blood sugar 4 times daily. 400 Strip 1 04/22/20 6:47 AM EDT Active OneTouch Delica Lancets 33G To test blood sugar 4 times daily. 400 Each 1 04/22/20 6:47 AM EDT Active OneTouch Verio w/Device Kit Use as directed. 1 Kit 04/22/20 6:47 AM EDT Active Albuterol Sulfate 0.63 MG/3ML Inhalation Nebulization Solution (Accuneb) Inhale 1 Vial via nebulizer every 6 hours as needed for Wheezing. Active Gabapentin 300 MG Oral Capsule (Neurontin) Take 1 Capsule by mouth at bedtime. Follow up with your primary care provider for further management. 90 Capsule 3 09/21/19 25 2:09 PM EST 025 Active Atorvastatin Calcium 40 MG Oral Tablet (Lipitor)Indica tions:Dyslipide jennifer, goal LDL below 100 Take 1 Tablet by mouth in the morning. 90 Tablet 1 08/06/19 25 3:02 PM EST 025 Active Colestipol HCl 1 GM Oral Tablet (Colestid) take 2 tablets by mouth at noon daily if needed for diarrhea 180 Tablet 3 08/11/19 25 3:46 PM EST 025 Active Nitroglycerin 0.4 MG Sublingual Tablet Sublingual (Nitrostat) Place under the tongue 1 Tablet as needed for Pain, Chest. May repeat 3 times. If chest pain continues, call 911. 25 Tablet 11 022 2024 Discontinued(R efill) Insulin Glargine Solostar 100 UNIT/ML Subcutaneous Solution Pen-injector (Morgan Zhou)Indicat ions:Type 2 diabetes mellitus with hemoglobin A1c [...] mL 4 024 2024 Discontinued(R efill) Carvedilol 12.5 MG Oral Tablet (Coreg)Indicati ons:HTN, goal below 140/90 Take 1 Tablet by mouth in the morning and 1 Tablet before bedtime. 180 Tablet 4 08/21/19 25 8:06 AM EST 2024 Discontinued buPROPion HCl ER (SR) 150 MG Oral Tablet Extended Release 12 Hour (Wellbutrin SR) Take 1 Tablet by mouth every evening. 90 Tablet 06/03/20 24 1:04 PM EST 2024 Discontinued Amoxicillin-Pot Clavulanate 875-125 MG Oral Tablet (Augmentin) Take 1 Tablet by mouth in the morning and 1 Tablet before bedtime. Do all this for 7 days. 17 Tablet 024 2024 Discontinued guaiFENesin ER 600 MG Oral Tablet Extended Release 12 Hour (Humibid LA) Take 1 Tablet by mouth in the morning and 1 Tablet before bedtime. 2024 Discontinued Promethazine-Co deine 6.25-10 MG/5ML Oral Syrup (Phenergan and Codeine) Take 5 mL by mouth 4 times a day as needed for Cough. 120 mL 1 024 2024 Discontinued Benzonatate 100 MG Oral Capsule (Tessalon Perles) Take 1 Capsule by mouth 3 times a day as needed for Cough. Do not cut, crush, or chew. 50 Capsule 1 024 2024 Discontinued amLODIPine Besylate 5 MG Oral Tablet (Norvasc) TAKE ONE TABLET BY MOUTH EVERY DAY IN THE MORNING 90 Tablet 1 08/21/19 8:06 AM EST 025 2024 Discontinued Hospital, Clinic, or Other Facility Administered Medication Ordered Dose Route Frequency Start Date End Date Status vitamin b-12 (Cyanocobalamin) inj 1,000 mcgIndications:S/P gastric bypass 1000 mcg IM [id number] 10/15/2022 07/19/2025 Active vitamin b-12 (Cyanocobalamin) inj 1,000 mcgIndications:Morbid obesity with BMI of 40.0-44.9, adult (HCC),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 [id number] 10/17/2023 12/11/19 Active documented as of this [...] 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 10/15/2022 [employer] OTHER*[id number] 01/01/2022 S/P gastric bypass 01/01/[address] [...] 8:45 AM EDT): Gabapentin 600 mg at [facility] Assessment & Plan (05/07/2021 11:11 AM [...] Insulin long-term use 11/19/20182018 Overview (05/20/2019): 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 [...] T-tube placement 04/16/2017 05/29/2017 [employer] Other*[id number] 04/13/2013 08/27/2016 Overview (04/13/2013): Study Title: Genomic Markers for Patients with Cardiovascular Disease Project # [id number] Software Test Specialist: Siena Laws MD [phone] Hypertensive heart disease 03/25/2013 1 07/29/2016 Neuropathy, [...] yrs 09/16/2018,04/14/2018,03/1104/11/2018 Pneumococcal Conjugate Vacci ne, 20-valent ([id number]) 06/22/2024,12/02/2023(Deferred: - pt states she's already received) [...] 10/17/2024 Does the household have a re lar [...] documented in this encounter Progress Notes * Belinda Turner CRNP - 08/10/2024 7:55 AM EST Telemedicine Visit 08/10/2024: REFERRING PHYSICIAN: Cleo Fonseca; Luis Fernando Rojas Patient location: HOME. I was in a hospital or clinic location. After connecting through televideo,patient was verified with two unique identifiers. Patient (or authorized legal technology sales representative) was then informed that this was a Telemedicine visit and being conducted confidentially over secure lines. Methods to assure confidentiality were taken. Patient acknowledged consent and understanding of pr ivacy and security of the Telemedicine visit. The patient agreed to participate. CC: Diarrhea HPI: Ms. Candi Finley is a 63 yr old female pt of Dr. Rojas w a hx of CHF, DM2, HLD, ESRD [...] and over, adult CHF NYHA class I ([facility]) 07/2009 Chronic marginal ulcer Deficiency of other vitamins Vit D Depressive disorder, not elsewhere classified Dialysis patient ([facility]) Diverticulosis of colon (without mention of hemorrhage) 12/02/2013 sigmoid & descending colon DM type 2 causing eye disease ([facility]) DM type 2 causing neurological disease ([facility]) neuropathy since 2006 DM type 2 causing renal disease ([facility]) DM type 2, goal A1c below [address] Monte Dyslipidemia, goal LDL below 100 primarily high triglycerides Endometrial cancer ([facility]) 1993 ESRD (end stage renal disease) on dialysis ([facility]) 03/14/2021 HTN, goal below 130/80 Kidney disease, chronic, stage III (GFR 30-59 ml/min) ([facility]) 10/02/2011 More specified code listed on PL Historical Malignant melanoma of right upper extremity ([facility]) 05/07/2021 Malignant neoplasm of corpus uteri ([facility]) 1993 Melanoma ([facility]) L calf R arm Motion sickness Neuropathy, diabetic ([facility]) 02/18/2013 Osteoarthritis of hip mild to mod bilat hip pain Other specified anemias low iron Other specified glaucoma denied by patient PONV (postoperative nausea and vomiting) Renal failure hemodialysis SBO (small bowel obstruction) ([facility]) 04/25/2017 Sleep apnea 07/2009 CPAP 11 [...] performed by Honorio Ashford MD at OR [facility] AV ACCESS, DIRECT ANASTOMOSIS Right 08/16/2021 ARTERIOVENOUS ANASTOMOSIS OPEN DIRECT ANY SITE performed by Sterling Cates MD at [facility] BREAST BIOPSY Left 12/26/2008 Usual Ductal Hyperplasia BREAST BIOPSY Left 09/20/2010 Benign BX LYMPH NODE DEEP AXIL Right 05/22/2021 BIOPSY LYMPH NODE DEEP AXILLARY OPEN performed by Diamond Rivero MD at OR [facility] COLONOSCOPY, DIAGNOSTIC (RECTUM) 12/02/2013 hyperplastic polyps, diverticulosis, repeat 5 yrs/done @ [facility] COLONOSCOPY, DIAGNOSTIC (RECTUM) 12/11/2017 adenomatous polyps, diverticulosis, repeat 5 yrs/[facility] COLONOSCOPY, DIAGNOSTIC (RECTUM) N/A 02/27/2023 diverticulosis/hemorrhoids/biopsies show adenomatous polyps/recall 5 years/Colonoscopy/[place] CORONARY ANGIOGRAPHY W/LEFT HEART CATH 04/13/2013 CORONARY ANGIOGRAPHY W/LEFT HEART CATH performed by Ulises Reed MD at CARDIAC LABS [facility] DIALYIS CIRCUIT VASCULAR EMBOLIZATION OCCLUSION ENDOVASC IMAGING Right 11/27/2021 EMBOLIZATION DIALYSIS CIRCUIT performed by Sterling Cates MD at OR [facility] EGD, FLEXIBLE, DIAGNOSTIC 05/03/2014 mild-mod inflammation/done @ [facility] EGD, FLEXIBLE, DIAGNOSTIC N/A 04/16/2017 ESOPHAGOGASTRODUODENOSCOPY (EGD), FLEXIBLE, TRANSORAL, DIAGNOSTIC performed by Félix Gilliam OR [facility] EGD, FLEXIBLE, DIAGNOSTIC 05/05/2020 mild-mod inflammation on bx / ESOPHAGOGASTRODUODENOSCOPY (EGD), FLEXIBLE, TRANSORAL, DIAGNOSTIC performed by Adin Borja MD at ENDOSCOPY [facility] EGD, FLEXIBLE, DIAGNOSTIC N/A 04/25/2021 ESOPHAGOGASTRODUODENOSCOPY (EGD), FLEXIBLE, TRANSORAL, DIAGNOSTIC performed by Honorio Almendarez MD atENDOSCOPY [facility] EGD, FLEXIBLE, DIAGNOSTIC 06/13/2021 gastrojejunal anastomosis characterized by ulceration, repeat 2 mo / [facility] IDENTIFY SENTINEL NODE, RADIOACTIVE TRACER Right 05/22/2021 INJECTION PROCEDURE FOR IDENTIFICATION SENTINEL NODE performed by Diamond Rivero MD at OR [facility] INFORMATION Left 2019 Pacemaker placement. INTRO CATH DIALYSIS CIRCUIT DX ANGIOGRAPHY FLUORO S&I Right 10/10/2022 AV FISTULOGRAM DIAGNOSTIC performed by Jose Devine MD at OR [facility] INTRO CATH DIALYSIS CIRCUIT W/TRANSCATH PLACEMENT IV STENT Right 03/19/2022 AV FISTULOGRAM STENT & PERIPHERAL ANGIOPLASTY performed by Jose Devine MD at OR [facility] INTRO CATH DIALYSIS CIRCUIT W/TRANSCATH PLACEMENT IV STENT Right 05/13/2023 AV FISTULOGRAM STENT & PERIPHERAL ANGIOPLASTY performed by Williams Matt MD at OR [facility] INTRO CATH DIALYSIS CIRCUIT W/TRANSCATH PLACEMENT IV STENT Right 12/02/2023 AV FISTULOGRAM STENT & PERIPHERAL ANGIOPLASTY performed by Micheal Urena MD at OR [facility] INTRO CATH DIALYSIS CIRCUIT W/TRANSCATH PLACEMENT IV STENT Right 06/01/2024 AV FISTULOGRAM STENT & PERIPHERAL ANGIOPLASTY performed by Beto Torrez MD at OR [facility] INTRO CATH DIALYSIS CIRCUIT W/TRANSLUM BALLOON ANGIOPLASTY Right 11/27/2021 AV FISTULOGRAM & PERIPHERAL ANGIOPLASTY performed by Sterling Cates MD at OR [facility] INTRO CATH DIALYSIS CIRCUIT W/TRANSLUM BALLOON ANGIOPLASTY Right 05/30/2022 AV FISTULOGRAM & PERIPHERAL ANGIOPLASTY performed by Beto Torrez MD at OR [facility] INTRO CATH DIALYSIS CIRCUIT W/TRANSLUM BALLOON ANGIOPLASTY Right 02/25/2023 AV FISTULOGRAM & PERIPHERAL ANGIOPLASTY performed by Jose Devine MD at OR [facility] INTRO CATH DIALYSIS CIRCUIT W/TRANSLUM BALLOON ANGIOPLASTY Right 03/30/2024 AV FISTULOGRAM & PERIPHERAL ANGIOPLASTY performed by Micheal Urena MD at OR [facility] IR DUPLEX ULTRASOUND (FOR INTERVENTIONAL RADIOLOGY USE ONLY) 03/02/2021 IR FISTULAGRAM AV DIALYSIS SHUNT IR VENOUS ACCESS NON-MEDIPORT 07/18/2022 LAPAROSCOPE PROCEDURE, LIVER N/A 04/16/2017 UNLISTED LAPAROSCOPIC PROCEDURE LIVER performed by Sukumar Polanco MD at OR [facility] LAPAROSCOPE PROCEDURE, LIVER N/A 01/28/2022 UNLISTED LAPAROSCOPIC PROCEDURE LIVER performed by Honorio Ashford MD at OR [facility] LAPAROSCOPIC GASTRIC BYPASS/JODY-EN-Y N/A 04/16/2017 LAPAROSCOPIC GASTRIC RESTRICTIVE BYPASS JODY EN Y performed by Sukumar Polanco MD at OR [facility] LAPAROSCOPY; CHOLECYSTECTOMY N/A 04/16/2017 LAPAROSCOPIC CHOLECYSTECTOMY performed by Sukumar Polanco MD at [facility] MISCELLANEOUS ORDER ([facility] ONLY) 05/2009 breast [...] performed by Sukumar Polanco MD at OR [facility] REPLACE,COMP,FLACO CENT ACC DEV N/A 03/22/2021 REPLACEMENT COMPLETE TUNNELED CENTRAL CATHETER NO PORT performed by Luis Fernando Hassan DO at OR [facility] REVISE STOMACH-BOWEL FUSION N/A 01/28/2022 REVISION GASTROJEJUNAL ANASTOMOSIS performed by Honorio Ashford MD at OR [facility] RMV MALG LSN TRK/ARM/LG >4.0CM Right 05/22/2021 EXCISION MALIGNANT TRUNK ARM LEG OVER 4CM performed by Diamond Rivero MD at OR [facility] RPR AA HERNIA 1ST 3-10 CM REDUCIBLE N/A 12/11/2022 INCISIONAL/VENTRAL/SPIGELIAN HERNIA REPAIR INITIAL 3-10 CM REDUCIBLE performed by Eros Dash MD at OR [facility] TOTAL ABD HYSTERECTOMY W/WO REMOVAL OF TUBE(S) Bilateral age 33 TOTAL HYSTERECTOMY TAHBSO (endometrial ca) TRANSECTION VAGUS NRV,TRUNCAL N/A 01/28/2022 LAPAROSCOPIC TRANSECTION VAGUS NERVES TRUNCAL performed by Honorio Ashford MD at OR [facility] UPPER GI ENDOSCOPY Social History Tobacco Use [...] GI nurses to fax lab orders to [facility] in [place] Follow Up: Return in about 4 months [...] AM R: 08/10/2024 documented in this encounter Miscellaneous Notes * Addendum Note - Belinda Turner CRNP - 10/27/2024 1:38 PM EDTAddended by: BELINDA TURNER on: 10/27/2024 01:38 PM Modules accepted: Orders documented in this encounter Plan of Treatment Upcoming Encounters Date Type Department Care Team (Late st Contact Info) Description 10/28/2024 10:30 AM EDT Office Visit Pulmonary Medicine, [facility] [address] [facility] [place] [phone] Storm Jose MD [address] [address] 11/02/2024 9:30 AM EDT Home Visit [facility] [place], [facility] [address] [facility] [address] [place] [address] Heidi Garcia RN [address] [place] [address] 11/02/2024 1:40 PM EDT Office Visit Podiatry [facility] [address] [place] [phone] Calli Avila DPM [address] [place] [address] 11/04/2024 9:00 AM EDT Telemedicine Pharmacy, [facility] [address] [facility] [phone] [facility] [address] [place], [place] [address] [address] 11/25/2024 7:30 AM EDT Imaging Vascular Lab, [facility] II 2nd Floor, [place] [address] [place] [address] 11/25/2024 10:00 AM EDT Imaging Radiology [facility] [address] [place] [address] 11/30/2024 10:00 AM EDT Nurse Only Nutrition & Weight Management, [facility] [address] [place] [phone] Boni, Nurse Gi Nutrition [facility] [address] [place] [address] 12/09/2024 12:15 PM EDT Hospital Encounter [facility], Operating Room, [facility] - 4th Floor [address] [facility] [place] [phone] Himanshu Rivero, [address] [place] [address] 12/09/2024 12:15 PM EDT - 12/09/2024 12:56 PM EDT Surgery [facility], Operating Room, [facility] - 4th Floor [address] [facility] [address] [place] [phone] Himanshu Rivero, [address] [place] [address] COLONOSCOPY FLEXIBLE PROXIMAL DIAGNOSTIC 12/21/2024 10:30 AM EDT Office Visit Gastroenterology, [facility] [address] [place] [phone] Belinda Turner CRNP [address] [place] [address] 12/21/2024 2:20 PM EDT [facility] Visit [facility] [address] [phone] Luis Fernando Rojas MD [address] [address] 12/28/2024 10:00 AM EDT Cardiac Studies Cardiology, [facility] [address] [place] [phone] [facility] [address] [place] [address] 03/10/2025 1:20 PM EDT Office Visit Dermatology, [address] [address] Joanne Parks PA-C [address] [place] [address] [address] [place] [address] Scheduled Orders Name Type Priority Associated Diagnoses Orde r Schedule TISSUE TRANSGLUTAMINASE IGA ANTIBODY Lab Routine Chronic diarrhea Expected: 08/10/2024, Expires: 08/10/2025 IGA Lab Routine Chronic diarrhea Expected: 08/10/2024, Expires: 08/10/2025 TSH WITH FREE T4 IF INDICATED Lab Routine Chronic diarrhea Expected: 08/10/2024, Expires: 08/10/2025 Scheduled Procedures Name Priority Associated Diagnoses Date/Ti [...] ONCE FOR ASTHMA-ADULT 10/24/2024 HbA1c 11/05/2024 05/07/2024, 0511/2022, 07/01/2022, Additional history exists COVID-19 Vaccine (6 [...] this encounter Medical Devices Implanted Type Area Mcat Instructor Device Identifier Shelf Expiration Date Model / Serial / Lot Coil Vortex 35 Pltinm [id number] - [id number] Implanted:Qty: 1 on 11/27/2021 by Sterling Cates MD at OR [facility] Right: Upper Arm [employer] : NEURO INTR [id number] 08/15/2024 [id number] / / [id number] Coil Vortex 35 Pltinm [id number] - [id number] Implanted:Qty: 1 on 11/27/2021 by Sterling Cates MD at OR [facility] Right: Upper Arm [employer] : NEURO INTR [id number] 08/15/2024 [id number] / / [id number] Coil Vortex 35 Pltinm [id number] - [id number] Implanted:Qty: 1 on 11/27/2021 by Sterling Cates MD at OR [facility] Right: Upper Arm [employer] : NEURO INTR [id number] 08/15/2024 [id number] / / [id number] Coil Vortex 35 Pltinm [id number] - [id number] Implanted:Qty: 1 on 11/27/2021 by Sterling Cates MD at OR [facility] Right: Upper Arm [employer] : NEURO INTR [id number] 05/16/2024 [id number] / / [id number] Azur 35 Detachable 5mm 11cm - [id number] Implanted:Qty: 1 on 03/19/2022 by Jose Devine MD at OR [facility] Right: Wrist [employer] [id number] 10/18/2025 [id number] / / [id number] Azur 35 Detachable 5mm 11cm - [id number] Implanted:Qty: 1 on 03/19/2022 by Jose Devine MD at OR [facility] Right: Wrist [employer] [id number] 06/19/2026 [id number] / / [id number] Mesh Flat Sheet 10x14 [id number] - [id number] Implanted:Qty: 1 on 12/11/2022 by Eros Dash MD at OR [facility] N/A: Abdomen CR BARD : DAVOL [id number] 06/17/2027 [id number] / / [id number] Defib [place] [employer] Research Program Assistant-D - [id number] Implanted:Qty: 1 on 10/07/2024 by Arianne Carrizales IV, MD at [facility]ARDIAC [facility]S [facility] [employer] : CRM 07/03/2025 [id number] / [id number] / [id number] Envelope Antibacteral Tyrx - [id number] Implanted:Qty: 1 on 10/07/2024 by Arianne Carrizales IV, MD at [facility] [employer] : FANTASMA [id number] 06/02/2025 [id number] / / [id number] Lead Defib Sprint 6935m-62 - [id number] Implanted:Qty: 1 on 10/07/2024 by Arianne Carrizales IV, MD at [facility] [employer] : F[employer]AS[employer] [id number] 08/03/2026 [id number] / [id number] / [id number] documented as of this encounter Visit Diagnoses Diagnosis Marginal ulcer- Primary Gastrojejunal ulcer, unspecified as acute or chronic, without mention of hemorrhage, perforation, or obstruction ESRD (end stage renal disease) on dialysis ([facility]) End stage renal disease Hypertensive 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 congestive heart failure and stage 5 chronic kidney disease on chronic dialysis ([facility]) Acute posthemorrhagic anemia Type 2 diabetes mellitus 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 dialysis, with long-term current use of insulin ([facility]) Hypothyroidism (acquired) Unspecified hypothyroidism Malignant melanoma of right upper extremity ([facility]) Aortic atherosclerosis ([facility]) Atherosclerosis of aorta Diabetic polyneuropathy associated with type 2 diabetes mellitus ([facility]) Advanced care planning/counseling discussion- Primary Other specified counseling Hypertensive 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 congestive heart failure and stage 5 chronic kidney disease on chronic dialysis ([facility]) Presence of cardiac pacemaker Cardiac pacemaker in situ SSS (sick sinus syndrome) ([facility]) Sinoatrial node dysfunction MINISTERIO on CPAP Obstructive sleep apnea (adult) (pediatric) Hypothyroidism (acquired) Unspecified hypothyroidism Type 2 diabetes mellitus 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 dialysis, with long-term current use of insulin ([facility]) S/P gastric bypass Bariatric surgery status ESRD (end stage renal disease) on dialysis ([facility]) End stage renal disease Recurrent ventral incisional hernia Incisional hernia without mention of obstruction or gangrene NO SHOW/FAILED TO KEEP APPOINTMENT- Primary Chronic diastolic heart failure ([facility])- Primary Chronic diastolic heart failure HTN, goal below 140/90 Unspecified essential hypertension Type 2 diabetes mellitus with hemoglobin A1c goal of less than 7.0% ([facility]) Hypothyroidism (acquired) Unspecified hypothyroidism Dyslipidemia, [...] apnea (adult) (pediatric) Diarrhea, unspecified type Chronic diarrhea- Primary Diarrhea History of colonic polyps Personal history of colonic polyps Diarrhea documented in this encounter Additional Health Concerns Infection Onset Date Last Indicated Resolved Time Enterovirus (resp)/Rhinoviru s Comment:Per Dr. 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
--- OUTSIDE RECORDS SUMMARY | 2024-11-04 03:11 | External Medical Summary | Summary of Care ---
Author Name Unknown Organization [facility] Address [address] [place] [address] Phone [phone] Care Team Providers Care Manager Fashion Name Role Phone Luis Fernando Rojas MD Primary Care Provider [phone] Reason for Referral * Evaluate & Treat - Unlimited Visits (Within 10 days (routine)) - Authorized Specialty Diagnoses / Procedures Referred By Mikey torres Referred To Contact Pulmonary Diseases / Pulmonary Diagnoses Pulmonary emphysema, unspecified emphysema type (HCC) Uncomplicated asthma, unspecified asthma severity, unspecified whether persistent MINISTERIO on CPAP Hypoxia Mohini Marley MD [address] [place] [address] Phone: tel: fax: Referral ID Status Reason Start Date Expiration Date Visits Requested Visits Authorized [id number] Authorized Specialty Services Required 10/21/[phone] Question Answer Referral Priority Within 10 days (routine) Where should this appointment be scheduled? ising Primary Reason for Referral? Asthma/COPD Reason for Visit * Reason Comments Hospital Follow-Up Pt is here today due to needing a hospital discharge follow up Encounter Details Date Type Department Care Team (Late st Contact Info) Description 10/21/2024 11:20 AM EDT [facility] Visit [facility] [address] [facility] [place] [phone] Mohini Marley MD [address] [phone] Syncope and collapse*; Ventricular tachycardia (HCC); SSS (sick sinus syndrome) ([facility]); Type 2 diabetes mellitus with hemoglobin A1c goal of less than 7.0% (HCC); Ventricular tachycardia, non-sustained (HCC); Presence of cardiac pacemaker; PAT (paroxysmal atrial tachycardia) ([facility]); Hypertensive 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 congestive heart failure and stage 5 chronic kidney disease on chronic dialysis (HCC); End stage renal disease on dialysis (HCC); Chronic diastolic heart failure (HCC); Hypothyroidism (acquired); Pulmonary emphysema, unspecified emphysema type (HCC); Uncomplicated asthma, unspecified asthma severity, unspecified whether persistent; MINISTERIO on CPAP; Hypoxia Allergies Active Allergy Reactions Criticality Noted Date Comments Salvador Inhibitors Other (Please comment),Cough High HyperKalemia documented as of this encounter (statuses as of 10/21/2024) Medications Melatonin 10 MG Tablet Take 12 mg by mouth at bedtime. Active Aspirin 81 MG Oral Tablet ChewableIndicati ons:Type 2 diabetes mellitus 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 dialysis, with long-term current use of insulin ([facility]) Take 1 Tab by mouth [...] than 7.0% ([facility]) Use 4 times daily with insulin 400 Each 3 05/02/2023 5:15 PM EDT 05/01/20 23 Active Calcium Acetate (Phos Binder) 667 MG Oral Capsule (Phoslo) TAKE THREE CAPSULES BY MOUTH WITH EACH MEAL AND TWO CAPSULES WITH SNACKS 1300 Capsule 3 04/23/2024 3:37 PM EDT 05/01/20 23 Active Levothyroxine Sodium 100 MCG Oral Tablet (Levoxyl)Indicat ions:Hypothyroid ism, unspecified type TAKE 1 TABLET BY MOUTH DAILY AT LEAST 30 MINUTES PRIOR TO FIRST MEAL OF THE DAY OR OTHER MEDICATIONS 90 Tablet 3 08/06/2024 3:02 PM EST 09/10/19 24 Active Diclofenac Sodium 1 % External Gel (Voltaren) Apply topically to affected area 3 times a day as needed for Pain. 100 g 2 02/17/2024 2:10 PM EDT 02/17/20 24 Active Citalopram Hydrobromide 20 MG Oral Tablet (CeleXA) Take 1 Tablet by mouth in the morning. Active Omeprazole 20 MG Oral Capsule Delayed Release (PriLOSEC)Indica tions:Gastroesop hageal reflux disease without esophagitis Take 1 Capsule by mouth in the morning. 100 Capsule 3 09/04/2024 8:57 AM EST 03/18/20 24 Active OneTouch Verio In Vitro Strip (Glucose Blood) To test blood sugar 4 times daily. 400 Strip 1 04/22/2024 6:47 AM EDT 04/20/20 24 Active OneTouch Delica Lancets 33G To test blood sugar 4 times daily. 400 Each 1 04/22/2024 6:47 AM EDT 04/20/20 24 Active OneTouch Verio w/Device Kit Use as directed. 1 Kit 04/22/2024 6:47 AM EDT 04/20/20 24 Active Albuterol Sulfate 0.63 MG/3ML Inhalation Nebulization Solution (Accuneb) Inhale 1 Vial via nebulizer every 6 hours as needed for Wheezing. Active Gabapentin 300 MG Oral Capsule (Neurontin) Take 1 Capsule by mouth at bedtime. Follow up with your primary care provider for further management. 90 Capsule 3 09/20/2024 2:09 PM EST 08/06/19 25 Active Atorvastatin Calcium 40 MG Oral Tablet (Lipitor)Indicat ions:Dyslipidemi a, goal LDL below 100 Take 1 Tablet by mouth in the morning. 90 Tablet 1 08/06/2024 3:02 PM EST 08/05/19 25 Active Colestipol HCl 1 GM Oral Tablet (Colestid) take 2 tablets by mouth at noon daily if needed for diarrhea 180 Tablet 3 08/11/2024 3:46 PM EST 08/10/19 25 Active Insulin [...] (30 minutes before dialysis and another 5mg detention through dialysis if needed). 30 Tablet 3 10/11/19 25 Active Doxycycline Hyclate 100 MG Oral Capsule Take 1 Capsule by mouth in the morning and 1 Capsule before bedtime. Do all this for 10 days. Until gone.. 20 Capsule 10/18/19 25 025 Active Nitroglycerin 0.4 MG Sublingual Tablet Sublingual (Nitrostat) Place 1 Tablet under the tongue as needed for Pain, Chest. May repeat 3 times. If chest pain continues, call 911. 25 Tablet 11 10/22/19 25 Active Nitroglycerin 0.4 MG Sublingual Tablet Sublingual (Nitrostat) Place under the tongue 1 Tablet as needed for Pain, Chest. May repeat 3 times. If chest pain continues, call 911. 25 Tablet 11 04/26/20 025 Discontin ued(Refil l) Hospital, Clinic, or Other Facility Administered Medication Ordered Dose Route Frequency Start Date End Date Status vitamin b-12 (Cyanocobalamin) inj 1,000 mcgIndications:S/P gastric bypass 1000 mcg IM [id number] 10/15/2022 07/19/2025 Active vitamin b-12 (Cyanocobalamin) inj 1,000 mcgIndications:Morbid obesity with BMI of 40.0-44.9, adult (HCC),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 [id number] 10/17/2023 12/11/19 25 Active documented as of this encounter (statuses as of 10/21/2024) Active Problems Problem Noted Date Diagnosed Date [...] 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 10/15/2022 [employer] OTHER*[id number] 01/01/2022 S/P gastric bypass 01/01/[address] [...] 8:45 AM EDT): Gabapentin 600 mg at [facility] Assessment & Plan (05/07/2021 11:11 [...] as of this encounter (statuses as of 10/21/2024) Resolved Problems Problem Noted Date Diagnosed Date [...] Insulin long-term use 11/19/20182018 Overview (05/20/2019): Duplicate alf (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 insulin 11/19/2018 [...] T-tube placement 04/16/2017 05/29/2017 [employer] Other*[id number] 04/13/2013 08/27/2016 Overview (04/13/2013): Study Title: Genomic Markers for Patients with Cardiovascular Disease Project # [id number] Investment Broker: Siena Laws MD [phone] Hypertensive heart disease 03/25/2013 1 07/29/2016 Neuropathy, [...] as of this encounter (statuses as of 10/21/2024) Immunizations Name Administration Dates Next Due COVID-19 mRNA, LNP-s, No Pre serve, 2-Dose Series (Moderna) 04/09/2021,09/23/2020,08/19/2020 COVID-19, LNP-s, No Preserve , Espinoza-sucrose, Ages 12+ (Pfizer) 01/08/2022 COVID-19, MRNA-LNP, PF, 30 M CG/0.3 mL, 12 YRS AND ABOVE, IM (PFIZER-Comirnaty) 06/02/2024 HEPATITIS B VACCINE, RECOMB, 20 MCG/ML, ADULT (HEPLISAV-B) 09/05/2021,05/09/2021,04/04/2021,02/18 Hepatitis B, 20+ yrs 09/16/2018,04/14/2018,03/1104/11/2018 Pneumococcal Conjugate Vacci ne, 20-valent ([id number]) 06/22/2024,12/02/2023(Deferred: - pt states she's already received) [...] Never Smokeless Tobacco: Never Tobacco Cessation:Counseling Given: No Alcohol Use Standard Drinks/Week Comments No 0 [...] Sign Reading Time Taken Comments Blood Pressure 138/69 10/21/2024 11:27 AM EDT Pulse 77 10/21/2024 11:19 AM EDT Temperature 36 °C (96.8 °F) 10/21/2024 11: 19 AM EDT Respiratory Rate 16 10/21/2024 11:1 9 AM EDT Oxygen Saturation 88% 10/21/2024 11: 27 AM EDT on short walking, O2 drops Inhaled Oxygen Concentration - - Weight 99.6 kg (219 lb 9.6 oz) 10/21/2024 11:19 AM EDT Height - - Body Mass Index 37.68 10/05/2024 3:55 PM EDT documented in this [...] Progress Notes * Mohini Marley MD - 10/21/2024 11:34 AM EDT Images from the original note were not included. Subjective Candi Finley is a 63 year old female. Chief Complaint Patient presents with Hospital Follow-Up Pt is here today due to needing a hospital discharge follow up HPI: Here for hospital f/u Admission Oct 05 Discharge Oct 14 Dx : syncope Text in this note was generated using an ambient documentation service. I discussed the use of a device to record and summarize our discussion today. All persons present during the encounter consented to its use History of Present Illness The patient, with a history of arrhythmias managed with a pacemaker installed seven years ago, recently had a defibrillator added due to recurrent fainting spells. Despite the addition of the defibrillator, the patient reported fainting during a recent cardiology appointment. The patient also has diabetes, which she reports is well-controlled, and is on hemodialysis. She has been experiencing hypoxia on exertion, with oxygen saturation dropping to 88-86% on short walks. The patient also reported a tender area on her left forearm due to an IV infiltration during a recent hospital stay. The patient is due for a colonoscopy and has an upcoming appointment with a thoracic surgeon to discuss a possible mitral valve issue. The patient is considering getting a second opinion from another hospital regarding the potential valve replacement. PMH: Patient Active Problem List Diagnosis Dyslipidemia, [...] with type 2 diabetes mellitus ([facility]) SALVADOR inhibitor intolerance SSS (sick sinus syndrome) ([facility]) PAT (paroxysmal atrial tachycardia) ([facility]) Gastroesophageal reflux disease without esophagitis Hypertensive 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 congestive heart failure and stage 5 chronic kidney disease on chronic dialysis (HCC) Postsurgical malabsorption, not elsewhere classified Diabetic gastroparesis (HCC) Type 2 diabetes mellitus 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 dialysis, with long-term current use of insulin (HCC) Presence of cardiac pacemaker End stage renal disease on dialysis (HCC) Marginal ulcer Aortic atherosclerosis (HCC) Dialysis AV fistula malfunction ([facility]) [employer] OTHER*[id number] S/P gastric bypass 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 (HCC) Pulmonary hypertension, unspecified (HCC) Recurrent ventral incisional hernia Major depressive disorder, single episode, moderate (HCC) 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, with long-term current use of insulin ([facility]) Ventricular tachycardia, non-sustained (HCC) Arterial hypotension Anemia of renal disease Mitral stenosis with insufficiency Chronic hyponatremia Hyperphosphatemia Severe mitral regurgitation Pulmonary emphysema (HCC) Uncomplicated asthma Current Outpatient Medications Medication Sig Dispense Refill Melatonin 10 MG Tablet Take 12 mg by mouth at bedtime. Aspirin 81 MG Oral Tablet Chewable Take 1 Tab by mouth at bedtime. with food. 90 Tab 3 FreeStyle Jennifer 2 Sensor Use as directed. Replace every 14 days [place] [facility] 7 Each 3 CPAP every night at [...] DAY OR OTHER MEDICATIONS 90 Tablet 3 Diclofenac Sodium 1 % External Gel [...] sugar 4 times daily. 400 Strip 1 [place]mott Delica Lancets 33G To test blood sugar 4 times daily. 400 Each 1 OneTouch Verio w/Device Kit Use as directed. 1 Kit 0 Albuterol Sulfate 0.63 MG/3ML Inhalation Nebulization [...] (30 minutes before dialysis and another 5mg detention through dialysis if needed). 30 Tablet 3 [...] times daily with insulin 400 Each 3 Current Facility-Administered Medications Medication Dose Route [...] primarily high triglycerides Endometrial cancer ([facility]) 1993 ESRD (end stage renal disease) on dialysis ([facility]) 03/14/2021 HTN, goal below 130/80 Kidney disease, chronic, stage III (GFR 30-59 ml/min) ([facility]) 10/02/2011 More specified code listed on PL Historical Malignant melanoma of right upper extremity (HCC) 05/07/2021 Malignant neoplasm of corpus uteri ([facility]) 1993 Melanoma ([facility]) L calf R arm Motion sickness Neuropathy, diabetic ([facility]) 02/18/2013 Osteoarthritis of hip mild to mod bilat hip pain Other specified anemias low iron Other specified glaucoma denied by patient PONV (postoperative nausea and vomiting) Renal failure hemodialysis SBO (small bowel obstruction) ([facility]) 04/25/2017 Sleep apnea 07/2009 CPAP 11 cm H2O. C-flex 2 Past Surgical History: Procedure Laterality Date ABD WALL HERNIA REPAIR, LAP, REDUCIBLE N/A 01/28/2022 LAPAROSCOPIC VENTRAL/UMBILICAL HERNIA REPAIR, REDUCIBLE W OR W/O MESH performed by Honorio Ashford MD at OR [facility] AV ACCESS, DIRECT ANASTOMOSIS Right 08/16/2021 ARTERIOVENOUS ANASTOMOSIS OPEN DIRECT ANY SITE performed by Sterling Cates MD at OR [facility] BREAST BIOPSY Left 12/26/2008 Usual Ductal Hyperplasia BREAST BIOPSY Left 09/20/2010 Benign BX LYMPH NODE DEEP AXIL Right 05/22/2021 BIOPSY LYMPH NODE DEEP AXILLARY OPEN performed by Diamond Rivero MD at OR [facility] COLONOSCOPY, DIAGNOSTIC (RECTUM) 12/02/2013 hyperplastic polyps, diverticulosis, repeat 5 yrs/done @ [facility] COLONOSCOPY, DIAGNOSTIC (RECTUM) 12/11/2017 adenomatous polyps, diverticulosis, repeat 5 yrs/[facility] COLONOSCOPY, DIAGNOSTIC (RECTUM) N/A 02/27/2023 diverticulosis/hemorrhoids/biopsies show adenomatous polyps/recall 5 years/Colonoscopy/[facility] CORONARY ANGIOGRAPHY W/LEFT HEART CATH 04/13/2013 CORONARY ANGIOGRAPHY W/LEFT HEART CATH performed by Ulises Reed MD at CARDIAC LABS [facility] CV ECHO, ANTHONY INTRAOPERATIVE N/A 10/12/2024 ECHOCARDIOGRAPHY, TRANSESOPHAGEAL; INCLUDING PROBE PLACEMENT, IMAGE ACQUISITION, INTERPRETATION ANDREPORT performed [place] [facility] [place] [facility] [place] [facility] DIALYIS CIRCUIT VASCULAR EMBOLIZATION OCCLUSION ENDOVASC IMAGING Right 11/27/2021 EMBOLIZATION DIALYSIS CIRCUIT performed by Sterling Cates MD at OR [facility] EGD, FLEXIBLE, DIAGNOSTIC 05/03/2014 mild-mod inflammation/done @ [facility] EGD, FLEXIBLE, DIAGNOSTIC N/A 04/16/2017 ESOPHAGOGASTRODUODENOSCOPY (EGD), FLEXIBLE, TRANSORAL, DIAGNOSTIC performed by Sukumar Polanco MDat OR [facility] EGD, FLEXIBLE, DIAGNOSTIC 05/05/2020 mild-mod inflammation on bx / ESOPHAGOGASTRODUODENOSCOPY (EGD), FLEXIBLE, TRANSORAL, DIAGNOSTIC performed by Adin Borja MD at ENDOSCOPY [facility] EGD, FLEXIBLE, DIAGNOSTIC N/A 04/25/2021 ESOPHAGOGASTRODUODENOSCOPY (EGD), FLEXIBLE, TRANSORAL, DIAGNOSTIC [facility], [facility], DIAGNOSTIC 06/13/2021 gastrojejunal anastomosis characterized by ulceration, repeat 2 mo / [facility] IDENTIFY SENTINEL NODE, RADIOACTIVE TRACER Right 05/22/2021 INJECTION PROCEDURE FOR IDENTIFICATION SENTINEL NODE performed by Diamond Rivero MD at OR [facility] INFORMATION Left 2018 Pacemaker placement. INSERT/REPLACE DEFIBRILLATOR W/TRANSVERSE LEAD(S) Left 10/07/2024 BIVENTRICULAR DEFIBRILLATOR performed by Arianne Carrizales IV, MD at CARDIAC LABS [facility] INTRO CATH DIALYSIS CIRCUIT DX ANGIOGRAPHY FLUORO S&I Right 10/10/2022 AV FISTULOGRAM DIAGNOSTIC performed by Jose Devine MD at OR [facility] INTRO CATH DIALYSIS CIRCUIT W/TRANSCATH PLACEMENT IV STENT Right 03/19/2022 AV FISTULOGRAM STENT & PERIPHERAL ANGIOPLASTY performed by Jose Devine MD at OR [facility] INTRO CATH DIALYSIS CIRCUIT W/TRANSCATH PLACEMENT IV STENT Right 05/13/2023 AV FISTULOGRAM STENT & PERIPHERAL ANGIOPLASTY performed by Williams Matt MD at OR [facility] INTRO CATH DIALYSIS CIRCUIT W/TRANSCATH PLACEMENT IV STENT Right 12/02/2023 AV FISTULOGRAM STENT & PERIPHERAL ANGIOPLASTY performed by Micheal Urena MD at OR [facility] INTRO CATH DIALYSIS CIRCUIT W/TRANSCATH PLACEMENT IV STENT Right 06/01/2024 AV FISTULOGRAM STENT & PERIPHERAL ANGIOPLASTY performed by Beto Torrez MD at OR [facility] INTRO CATH DIALYSIS CIRCUIT W/TRANSLUM BALLOON ANGIOPLASTY Right 11/27/2021 AV FISTULOGRAM & PERIPHERAL ANGIOPLASTY performed by Sterling Cates MD at OR [facility] INTRO CATH DIALYSIS CIRCUIT W/TRANSLUM BALLOON ANGIOPLASTY Right 05/30/2022 AV FISTULOGRAM & PERIPHERAL ANGIOPLASTY performed by Beto Torrez MD at OR [facility] INTRO CATH DIALYSIS CIRCUIT W/TRANSLUM BALLOON ANGIOPLASTY Right 02/25/2023 AV FISTULOGRAM & PERIPHERAL ANGIOPLASTY performed by Jose Devine MD at OR [facility] INTRO CATH DIALYSIS CIRCUIT W/TRANSLUM BALLOON ANGIOPLASTY Right 03/30/2024 AV FISTULOGRAM & PERIPHERAL ANGIOPLASTY performed by Micheal Urena MD at OR [facility] INTRO CATH DIALYSIS CIRCUIT W/TRANSLUM BALLOON ANGIOPLASTY Right 09/16/2024 AV FISTULOGRAM & PERIPHERAL ANGIOPLASTY performed by Sterling Cates MD at OR [facility] IR DUPLEX ULTRASOUND (FOR INTERVENTIONAL RADIOLOGY USE ONLY) 03/02/2021 IR FISTULAGRAM AV DIALYSIS SHUNT IR VENOUS ACCESS NON-MEDIPORT 07/18/2022 LAPAROSCOPE PROCEDURE, LIVER N/A 04/16/2017 UNLISTED LAPAROSCOPIC PROCEDURE LIVER performed by Sukumar Polanco MD at [facility] LAPAROSCOPE PROCEDURE, LIVER N/A 01/28/2022 UNLISTED LAPAROSCOPIC PROCEDURE LIVER performed by Honorio Ashford MD at OR [facility] LAPAROSCOPIC GASTRIC BYPASS/JODY-EN-Y N/A 04/16/2017 LAPAROSCOPIC GASTRIC RESTRICTIVE BYPASS JODY EN Y performed by Sukumar Polanco MD at [facility] LAPAROSCOPY; CHOLECYSTECTOMY N/A 04/16/2017 LAPAROSCOPIC CHOLECYSTECTOMY performed by Sukumar Polanco MD at [facility] MISCELLANEOUS ORDER ([facility] ONLY) 05/2009 breast [...] performed by Sukumar Polanco MD at OR [facility] REPLACE,COMP,FLACO CENT ACC DEV N/A 03/22/2021 REPLACEMENT COMPLETE TUNNELED CENTRAL CATHETER NO PORT performed by Luis Fernando Hassan DO at OR [facility] REVISE STOMACH-BOWEL FUSION N/A 01/28/2022 REVISION GASTROJEJUNAL ANASTOMOSIS performed by Honorio Ashford MD at OR [facility] RMV MALG LSN TRK/ARM/LG >4.0CM Right 05/22/2021 EXCISION MALIGNANT TRUNK ARM LEG OVER 4CM performed by Diamond Rivero MD at OR [facility] RPR AA HERNIA 1ST 3-10 CM REDUCIBLE N/A 12/11/2022 INCISIONAL/VENTRAL/SPIGELIAN HERNIA REPAIR INITIAL 3-10 CM REDUCIBLE performed by Eros Dash MD at OR [facility] TOTAL ABD HYSTERECTOMY W/WO REMOVAL OF TUBE(S) Bilateral age 33 TOTAL HYSTERECTOMY TAHBSO (endometrial ca) TRANSECTION VAGUS NRV,TRUNCAL N/A 01/28/2022 LAPAROSCOPIC TRANSECTION VAGUS NERVES TRUNCAL performed by Honorio Ashford MD at OR [facility] UPPER GI ENDOSCOPY Review of patient's allergies [...] level: Not on file Occupational History Employer: [employer] Tobacco Use Smoking status: Never Passive exposure: Never Smokeless tobacco: Never Vaping Use Vaping status: Never Used Substance and Sexual Activity Alcohol use: No Drug use: No Sexual activity: Yes Partners: Male control/protection: Surgical Comment: hysterectomy Other Topics Concern Not on file Social History Narrative Employed: [employer] Social Needs Financial Resource Strain: Low Risk [...] Stability Do you currently live in a detention or have no steady place to sleep [...] Constitutional: Positive for fatigue. Negative for activity change, appetite change, chills, diaphoresis, fever and unexpected weight change. HENT: Positive for congestion (mild). Negative for hearing loss. Respiratory: Negative for cough, chest tightness, shortness of breath and wheezing. Cardiovascular: Positive for leg swelling (mild chronic). Negative for chest pain and palpitations. Gastrointestinal: Negative for abdominal distention, abdominal pain, nausea and vomiting. Endocrine: Negative. Genitourinary: Negative for hematuria. Musculoskeletal: Positive for arthralgias and gait problem. Allergic/Immunologic: Positive for environmental allergies. Neurological: Positive for syncope and weakness (ggeneral). Negative for dizziness and light-headedness. Psychiatric/Behavioral: Positive for dysphoric mood. Negative for agitation and behavioral problems. The patient is nervous/anxious. Objective BP 138/69 | Pulse 77 | Temp 96.8 °F (36 °C) (Tympanic) | Resp 16 | Wt 219 lb 9.6 oz (99.6 kg) | SpO2 88% Comment: on short walking, O2 drops | BMI 37.68 kg/m² | BSA 2.12 m² Physical Exam Constitutional: General: She is not in acute distress. Appearance: Normal appearance. She is obese. She is not ill-appearing, toxic- appearing or diaphoretic. HENT: Head: Normocephalic and atraumatic. Nose: Nose normal. Eyes: Extraocular Movements: Extraocular movements intact. Cardiovascular: Rate and Rhythm: Normal rate and regular rhythm. Heart sounds: Murmur heard. Pulmonary: Effort: Pulmonary effort is normal. No respiratory distress. Breath sounds: Normal breath sounds. No stridor. No wheezing, rhonchi or rales. Chest: Chest wall: No tenderness. Musculoskeletal: Right lower leg: No edema. Left lower leg: No edema. Skin: Findings: Erythema (mild lt forearm) present. Neurological: General: No focal deficit present. Mental Status: She is alert and oriented to person, place, and time. Psychiatric: Behavior: Behavior normal. ASSESSMENT/PLAN: Syncope and collapse (Primary) Ventricular tachycardia (HCC) SSS (sick sinus syndrome) (HCC) Type 2 diabetes mellitus with hemoglobin A1c goal of less than 7.0% (HCC) Ventricular tachycardia, non-sustained (HCC) Presence of cardiac pacemaker PAT (paroxysmal atrial tachycardia) (HCC) Hypertensive 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 congestive heart failure and stage 5 chronic kidney disease on chronic dialysis (HCC) End stage renal disease on dialysis (HCC) Chronic diastolic heart failure (HCC) Hypothyroidism (acquired) Pulmonary emphysema, unspecified emphysema type (HCC) - PULMONARY REFERRAL OP - DURABLE MEDICAL EQUIPMENT Uncomplicated asthma, unspecified asthma severity, unspecified whether persistent - PULMONARY REFERRAL OP - DURABLE MEDICAL EQUIPMENT MINISTERIO on CPAP - PULMONARY REFERRAL OP Hypoxia - PULMONARY REFERRAL OP - DURABLE MEDICAL EQUIPMENT Other orders - Nitroglycerin 0.4 MG Sublingual Tablet Sublingual (Nitrostat); Place 1 Tablet under the tongue asneeded for Pain, Chest. May repeat 3 times. If chest pain continues, call 911. Follow Up: Return in about 2 months (around 12/21/2024) for Clinic Visit. | For: Clinic Visit | Check-out note: DME - portable O2 order , please fax to [facility] 2 mo with PCP or me Assessment & Plan Cardiac arrhythmia with AICD placement AICD placed to address conduction issues and prevent fainting. Cardiology follow-up and thoracic surgery consultation planned. - Schedule cardiology follow-up in November. - f/u with thoracic surgeon for mitral valve issues. Mitral valve disorder Mitral valve issues may contribute to arrhythmias. High surgical risk due to comorbidities. Conservative management preferred. - Monitor mitral valve condition and symptoms. - Discuss potential surgical options with thoracic surgeon at the end of October. Anemia Anemia exacerbates fatigue and cardiac symptoms. Lab results pending. - Review recent lab results from dialysis center. - Monitor hemoglobin levels and manage anemia accordingly. Hypoxia on exertion Hypoxia likely due to anemia and cardiac issues. Portable oxygen recommended during exertion. - Order portable oxygen at 2 L/min for use during exertion. - Refer to glue spreading machine operator for further evaluation and management. Type 2 diabetes mellitus Diabetes well-controlled. Advised to avoid artificial sweeteners. - Continue current diabetes management plan. - Avoid artificial sweeteners and limit caffeine intake. Left forearm phlebitis Inflammation due to IV infiltration. Improvement expected with antibiotics. - Continue antibiotics for left forearm inflammation. - Consider ultrasound if no improvement. Follow-up Multiple follow-up appointments scheduled. - Schedule follow-up with primary care provider in two months. - Ensure all specialist appointments are attended as scheduled. ESRD, on HD on MWF Mohini Marley MD documented in this encounter Nursing Notes * Janice Orr LPN - 10/21/2024 11:13 AM EDT Chief Complaint Patient presents with Hospital Follow-Up Pt is here today due to needing a hospital discharge follow up documented in this encounter Plan of Treatment Upcoming Encounters Date Type Department Care Team (Late st Contact Info) Description 10/28/2024 10:30 AM EDT Office Visit Pulmonary Medicine, [facility] [address] [facility] [place] [phone] Storm Jose MD [address] [place] [address] 11/02/2024 9:30 AM EDT Home Visit [facility], [facility] [address] [facility] [place] [address] Heidi Garcia RN [address] [facility] [place] [address] 11/04/2024 9:00 AM EDT Telemedicine Pharmacy, [facility] [phone] [place] [address] 11/25/2024 10:00 AM EDT Imaging Radiology [facility] [address] [facility] [place] [address] 11/30/2024 10:00 AM EDT Nurse Only Nutrition & Weight Management, [facility] [address] [place] [address] Boni Nurse Gi Nutrition [facility] [address] [facility] [place] [address] 12/06/2024 10:30 AM EDT Office Visit Cardiology, [facility] [address] [place] [phone] Megan Alex PA-C [address] [place] [address] 12/09/2024 12:15 PM EDT Hospital Encounter OR [facility], Operating Room, [facility] - 4th Floor [address] [facility] [address] Himanshu Rivero, DO [address] [place] [address] 12/09/2024 12:15 PM EDT - 12/09/2024 12:56 PM EDT Surgery OR [facility], Operating Room, [facility] - 4th Floor [address] [facility] [place] [address] Himanshu Rivero, DO [address] [place] [address] COLONOSCOPY FLEXIBLE PROXIMAL DIAGNOSTIC 12/21/2024 10:30 AM EDT Office Visit Gastroenterology, [facility] [address] [place] [phone] Emi Queen CRNP [address] [place] [address] 12/21/2024 2:20 PM EDT Office Visit [facility] Pr[address] [place] [phone] Luis Fernando Rojas MD [address] [address] 12/28/2024 10:00 AM EDT Cardiac Studies Cardiology, [facility] [address] [place] [phone] [place], Pacer Clinic [facility] [address] [place] [address] 03/10/2025 1:20 PM EDT [facility] [address] [place] [phone] Joanne Parks PA-C [address] [place] [address] [place] [address] Scheduled Procedures Name Priority Associated Diagnoses Date/Ti me COLONOSCOPY FLEXIBLE PROXIMAL DIAGNOSTIC History of colonic polyps Diarrhea 12/09/2024 12:15 PM EDT Scheduled Referrals Name Type Priority Associated Diagnoses Orde r Schedule PULMONARY REFERRAL OP Referral Within 10 days (routine) Pulmonary emphysema, unspecified emphysema type (HCC) Uncomplicated asthma, unspecified asthma severity, unspecified whether persistent MINISTERIO on CPAP Hypoxia Ordered: 10/21/2024 Health Maintenance Due Date Last Done Comments [...] this encounter Medical Devices Implanted Type Area Packing Room Supervisor Device Identifier Shelf Expiration Date Model / Serial / Lot Coil Vortex 35 Pltinm [id number] - [id number] Implanted:Qty: 1 on 11/27/2021 by Sterling Cates MD at OR [facility] Right: Upper Arm [employer] : NEURO INTR [id number] 08/15/2024 [id number] Coil Vortex 35 Pltinm [id number] - [id number] Implanted:Qty: 1 on 11/27/2021 by Sterling Cates MD at OR [facility] Right: Upper Arm [employer] : NEURO INTR [id number] 08/15/2024 [id number] Coil Vortex 35 Pltinm [id number] - [id number] Implanted:Qty: 1 on 11/27/2021 by Sterling Cates MD at OR [facility] Right: Upper Arm [employer] : NEURO INTR [id number] 08/15/2024 [id number] / / [id number] Coil Vortex 35 Pltinm [id number] - [id number] Implanted:Qty: 1 on 11/27/2021 by Sterling Cates MD at OR [facility] Right: Upper Arm [employer] : NEURO INTR [id number] 05/16/2024 [id number] / / [id number] Azur 35 Detachable 5mm 11cm - [id number] Implanted:Qty: 1 on 03/19/2022 by Jose Devine MD at OR [facility] Right: Wrist [employer] [id number] 10/18/2025 [id number] / / [id number] Azur 35 Detachable 5mm 11cm - [id number] Implanted:Qty: 1 on 03/19/2022 by Jose Devine MD at OR [facility] Right: Wrist [employer] [id number] 06/19/2026 [id number] / / [id number] Mesh Flat Sheet 10x14 [id number] - [id number] Implanted:Qty: 1 on 12/11/2022 by Eros Dash MD at OR [facility] N/A: Abdomen CR BARD : DAVOL [id number] 06/17/2027 [id number] / / [id number] Defib Emily Mri Detacher-D - [id number] Implanted:Qty: 1 on 10/07/2024 by Arianne Carrizales IV, MD at [facility] [employer] : FANTASMA 07/03/2025 [id number] / [id number] / [id number] Envelope Antibacteral Tyrx - [id number] Implanted:Qty: 1 on 10/07/2024 by Arianne Carrizales IV, MD at [facility] [employer] : CRM [id number] 06/02/2025 [id number] / / [id number] Lead Defib Sprint 6935m-62 - [id number] Implanted:Qty: 1 on 10/07/2024 by Arianne Carrizales IV, MD at [facility] [employer] : CRM [id number] 08/03/2026 [id number] 62 / [id number] / [id number] documented as of this encounter Visit Diagnoses Diagnosis Marginal ulcer- Primary Gastrojejunal ulcer, unspecified as acute or chronic, without mention of hemorrhage, perforation, or obstruction ESRD (end stage renal disease) on dialysis ([facility]) End stage renal disease Hypertensive 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 congestive heart failure and stage 5 chronic kidney disease on chronic dialysis ([facility]) Acute posthemorrhagic anemia Type 2 diabetes mellitus 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 dialysis, with long-term current use of insulin ([facility]) Hypothyroidism (acquired) Unspecified hypothyroidism Malignant melanoma of right upper extremity ([facility]) Aortic atherosclerosis ([facility]) Atherosclerosis of aorta Diabetic polyneuropathy associated with type 2 diabetes mellitus ([facility]) Advanced care planning/counseling discussion- Primary Other specified counseling Hypertensive 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 congestive heart failure and stage 5 chronic kidney disease on chronic dialysis ([facility]) Presence of cardiac pacemaker Cardiac pacemaker in situ SSS (sick sinus syndrome) ([facility]) Sinoatrial node dysfunction MINISTERIO on CPAP Obstructive sleep apnea (adult) (pediatric) Hypothyroidism (acquired) Unspecified hypothyroidism Type 2 diabetes mellitus 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 dialysis, with long-term current use of insulin ([facility]) S/P gastric bypass Bariatric surgery status ESRD (end stage renal disease) on dialysis ([facility]) End stage renal disease Recurrent ventral incisional hernia Incisional hernia without mention of obstruction or gangrene NO SHOW/FAILED TO KEEP APPOINTMENT- Primary Chronic diastolic heart failure ([facility])- Primary Chronic diastolic heart failure HTN, goal below 140/90 Unspecified essential hypertension Type 2 diabetes mellitus with hemoglobin A1c goal of less than 7.0% ([facility]) Hypothyroidism (acquired) Unspecified hypothyroidism Dyslipidemia, goal LDL below 100 Other and unspecified hyperlipidemia Major depressive disorder, single episode, moderate ([facility]) Major depressive disorder, single episode, moderate 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, with long-term current use of insulin ([facility]) Hyperparathyroidism, secondary renal ([facility]) Secondary hyperparathyroidism (of renal origin) End stage renal disease on dialysis ([facility]) End stage renal disease MINISTERIO on CPAP Obstructive sleep apnea (adult) (pediatric) Diarrhea, unspecified type Syncope and collapse- Primary Ventricular tachycardia (HCC) Paroxysmal ventricular tachycardia SSS (sick sinus syndrome) (HCC) Sinoatrial node dysfunction Type 2 diabetes mellitus with hemoglobin A1c goal of less than 7.0% (HCC) Ventricular tachycardia, non-sustained (HCC) Paroxysmal ventricular tachycardia Presence of cardiac pacemaker Cardiac pacemaker in situ PAT (paroxysmal atrial tachycardia) (HCC) Paroxysmal supraventricular tachycardia Hypertensive 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 congestive heart failure and stage 5 chronic kidney disease on chronic dialysis (HCC) End stage renal disease on dialysis (HCC) End stage renal disease Chronic diastolic heart failure (HCC) Chronic diastolic heart failure Hypothyroidism (acquired) Unspecified hypothyroidism Pulmonary emphysema, unspecified emphysema type (HCC) Uncomplicated asthma, unspecified asthma severity, unspecified whether persistent MINISTERIO on CPAP Obstructive sleep apnea (adult) (pediatric) Hypoxia Hypoxemia History of colonic polyps Personal history of colonic polyps Diarrhea documented in this encounter Advance Directives Documents on File Type Date Recorded Patient Transcription Coordinator Expl anation POLST 11/13/2020 POLST FLAKITOA VALERIA [...] Spouse Health Care Agent Care Teams Manager Fashion Relationship Specialty Start Date End Date Luis Fernando Rojas MD [address] [place] [address] PCP - General Family Medicine 09/23/16 documented as of this encounter
--- OUTSIDE RECORDS SUMMARY | 2024-11-04 03:11 | External Medical Summary | Summary of Care ---
Author Name Unknown Organization [facility] Address [address] [place] [address] Phone [phone] Care Team Providers Care Convention Worker Name Role Phone Luis Fernando Rojas MD Primary Care Provider [phone] Reason for Visit * Reason Onset Date Comments Appointment 10/19/2024 [facility] Clinic Encounter Details Date Type Department Care Team (Late st Contact Info) Description 10/19/2024 Telephone Pharmacy, [facility] [place] [address] [facility] [place] [address] Appointment ([facility] Clinic /) Allergies Active Allergy Reactions Criticality Noted Date Comments Salvador Inhibitors Other (Please comment),Cough High HyperKalemia documented as of this encounter (statuses as of 10/20/2024) Medications Melatonin 10 MG Tablet Take 12 [...] Replace every 14 days (supplied through [facility]) 7 Each 3 1 Active CPAP every [...] goal of less than 7.0% ([facility]) Use 4 times daily with [...] (30 minutes before dialysis and another 5mg [facility] through dialysis if needed). 30 Tablet 3 5 Active Doxycycline Hyclate 100 MG Oral Capsule Take 1 Capsule by mouth in the morning and 1 Capsule before bedtime. Do all this for 10 days. Until gone.. 20 Capsule 5 10/28/19 25 Active Hospital, Clinic, or Other Facility Administered Medication Ordered Dose Route Frequency Start Date End Date Status vitamin b-12 (Cyanocobalamin) inj 1,000 mcgIndications:S/P gastric bypass 1000 mcg IM [id number] 10/15/2022 07/19/2025 Active vitamin b-12 (Cyanocobalamin) inj 1,000 mcgIndications:Morbid obesity with BMI of 40.0-44.9, adult (HCC),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 [id number] 10/17/2023 12/11/19 25 Active documented as of this encounter (statuses as of 10/20/2024) Active Problems Problem Noted Date Diagnosed Date Severe mitral regurgitation 10/13/2024 Chronic hyponatremia 10/11/2024 [...] 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 10/15/2022 [facility] OTHER*[id number] 01/01/2022 S/P gastric bypass 01/01/[address] [...] as of this encounter (statuses as of 10/20/2024) Resolved Problems Problem Noted Date Diagnosed Date [...] T-tube placement 04/16/2017 05/29/2017 [employer] [facility] Other*[id number] 04/13/2013 08/27/2016 Overview (04/13/2013): Study Title: Genomic Markers for Patients with Cardiovascular Disease Project # [id number] Plant Superintendent: Siena Laws MD [phone] Hypertensive heart disease 03/25/2013 1 07/29/2016 Neuropathy, [...] as of this encounter (statuses as of 10/20/2024) Immunizations Name Administration Dates Next Due COVID-19 mRNA, LNP-s, No Pre serve, 2-Dose Series (Moderna) 04/09/2021,09/23/2020,08/19/2020 COVID-19, LNP-s, No Preserve , Espinoza-sucrose, Ages 12+ (Pfizer) 01/08/2022 COVID-19, MRNA-LNP, PF, 30 M CG/0.3 mL, 12 YRS AND ABOVE, IM (PFIZER-Comirnaty) 06/02/2024 HEPATITIS B VACCINE, RECOMB, 20 MCG/ML, ADULT (HEPLISAV-B) 09/05/2021,05/09/2021,04/04/2021,02/18 Hepatitis B, 20+ yrs 09/16/2018,04/14/2018,03/1104/11/2018 Pneumococcal Conjugate Vacci ne, 20-valent ([id number]) 06/22/2024,12/02/2023(Deferred: - pt states she's already received) [...] No 10/17/2024 Does the household have a [facility] source of income? (Household - for ages [...] encounter Miscellaneous Notes * Telephone Encounter - Elie Ascencio CPhT - 10/20/2024 8:38 AM EDT Patient Phone Numbers Left message on patient’s answering machine to re-schedule canceled MTDM appointment for DM management. Thank you, Elie Ascencio CPhT Stringing Machine Tender II [facility] 10/20/2024,8:38 AM * Telephone Encounter - Stephanie Rod RPh - 10/19/2024 4:36 PM EDT No referral for MTM cardio Looks like patient see's MTM maday, will forward them this message to get rescheduled Stephanie Rod Pharm D Clinical MTDM Pharmacist Cardiology 10/19/2024,4:36 PM * Telephone Encounter - Leonel Milton OSA - 10/19/2024 1:24 PM EDT Person calling: Candi Finley Relationship to patient: self Phone/Fax to return call: [phone] Reason for call(brief): Schedule MTM Clinic Pharmacy: N/A Provider Name: [facility] Clinic - [place] Detailed message to office: Patient calling to schedule MTM Clinic appointment. Patient can be reached at [phone] to schedule appointment. Thank You, Leonel Cardoso [phone] documented in this encounter Plan of Treatment Upcoming Encounters Date Type Department Care Team (Late st Contact Info) Description 10/21/2024 11:20 AM EDT Office Visit [facility] [address] [phone] Mohini Marley MD [address] [address] 11/02/2024 9:30 AM EDT Home Visit [facility] [address] [place] [address] Heidi Garcia, RN [address] [place] [address] 11/25/2024 10:00 AM EDT Imaging Radiology [facility] [address] [place] [phone] 11/30/2024 10:00 AM EDT Nurse Only Nutrition & Weight Management, [facility] [address] [place] [phone] Nurse Boni Gi Nutrition [facility] [address] [place] [address] 12/06/2024 10:30 AM EDT Office Visit Cardiology, [facility] [address] [place] [phone] Megan Alex PA-C [address] [place] [address] 12/09/2024 12:15 PM EDT Hospital Encounter OR [facility], Operating Room, [facility] - 4th Floor [facility] [phone] Himanshu Rivero, DO [address] [place] [address] 12/09/2024 12:15 PM EDT - 12/09/2024 12:56 PM EDT Surgery OR [facility], Operating Room, [facility] - 4th Floor [address] [facility] [place] [phone] Himanshu Rivero, DO [address] [place] [address] COLONOSCOPY FLEXIBLE PROXIMAL DIAGNOSTIC 12/15/2024 8:30 AM EDT Office Visit Cardiology, [facility] [address] [place] [phone] Josh Guadalupe MD [address] [place] [address] 12/21/2024 10:30 AM EDT Office Visit Gastroenterology, [facility] [address] [place] [phone] Emi Queen CRNP [address] [place] [address] 12/28/2024 10:00 AM EDT Cardiac Studies Cardiology, [facility] [address] [place] [address] Hiwot Pacer [facility] [address] [place] [address] 03/10/2025 1:20 PM EDT Office Visit Dermatology, [facility] [address] [phone] Joanne Parks PA-C [address] [place] [address] [place] [address] 04/13/2025 10:00 AM EDT Office Visit Cardiology, [facility] [address] [place] [phone] Tracey Kirkpatrick PA-C [address] [place] [address] [place] [phone] Scheduled Procedures Name Priority Associated Diagnoses Date/Ti [...] 09/30/2025 09/30/2024, 09/18, 07/08/2023, Additional history exists Colonoscopy 02/28/2028 02/27/2023, [...] this encounter Medical Devices Implanted Type Area Securities And Real Estate Director Device Identifier Shelf Expiration Date Model / Serial / Lot Coil Vortex 35 Pltinm [id number] - [id number] Implanted:Qty: 1 on 11/27/2021 by Sterling Cates MD at [place] [facility] Right: Upper Arm [employer] : NEURO INTR [id number] 08/15/2024 [id number] Coil Vortex 35 Pltinm 208873 - [id number] Implanted:Qty: 1 on 11/27/2021 by Sterling Cates MD at OR [facility] Right: Upper Arm [employer] : NEURO INTR [id number] 08/15/2024 [id number] Coil Vortex 35 Pltinm [id number] - [id number] Implanted:Qty: 1 on 11/27/2021 by Sterling Cates MD at OR [facility] Right: Upper Arm [employer] : NEURO INTR [id number] 08/15/2024 [id number] / / [id number] Coil Vortex 35 Pltinm 681679 - [id number] Implanted:Qty: 1 on 11/27/2021 by Sterling Cates MD at OR [facility] Right: Upper Arm [employer] : NEURO INTR [id number] 05/16/2024 [id number] / / [id number] Azur 35 Detachable 5mm 11cm - [id number] Implanted:Qty: 1 on 03/19/2022 by Jose Devine MD at OR [facility] Right: Wrist [employer] [id number] 10/18/2025 [id number] / / [id number] Azur 35 Detachable 5mm 11cm - [id number] Implanted:Qty: 1 on 03/19/2022 by Jose Devine MD at OR [facility] Right: Wrist [employer] [id number] 06/19/2026 [id number] / / [id number] Mesh Flat Sheet 10x14 [id number] - [id number] Implanted:Qty: 1 on 12/11/2022 by Eros Dash MD at OR [facility] N/A: Abdomen CR BARD : DAVOL [id number] 06/17/2027 [id number] / / [id number] Defib [place] Mri Zipper Repairer-D - [id number] Implanted:Qty: 1 on 10/07/2024 by Arianne Carrizales IV, MD at [facility] [employer] : [employer]AS[employer] 07/03/2025 [id number] / [id number] / [id number] Envelope Antibacteral Tyrx - [id number] Implanted:Qty: 1 on 10/07/2024 by Arianne Carrizales IV, MD at [facility] [employer] : [employer] [id number] 06/02/2025 [id number] 133 / / [id number] Lead Defib Sprint 6935m-62 - [id number] Implanted:Qty: 1 on 10/07/2024 by Arianne Carrizales IV, MD at [facility] [employer] : [facility] [id number] 08/03/2026 6935M 62 / [id number] / [id number] documented as of this encounter Advance Directives Documents on File Type Date Recorded Patient Jewelry Dipper Expl anation POLST 11/13/2020 POLST PENNSYLVA VALERIA [...] Finley Spouse Health Care Agent Care Teams Convention Worker Relationship Specialty Start Date End Date Luis Fernando Rojas MD [address] [address] PCP - General Family Medicine 09/23/16 documented as of this encounter
--- OUTSIDE RECORDS SUMMARY | 2024-11-04 03:11 | External Medical Summary | Summary of Care ---
Author Name Unknown Organization [facility] Address [address] [place] [address] Phone [phone] Care Team Providers Care System Dispatcher Name Role Phone Luis Fernando Rojas MD Primary Care Provider [phone] Encounter Details Date Type Department Care Team (Latest Contact Info) Description 10/04/2024 8:45 PM EDT - 10/04/2024 11:59 PM EDT Hospital Encounter Radiology Film File [address] [place] [address] Discharge Disposition: Home - Self [...] of less than 7.0% ([facility]) Use 4 times daily with [...] 1 04/22/2024 6:47 AM EDT 4 Active Luzern SolutionsTouch Verio w/Device Kit Use as directed. 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 Morbid obesity with BMI of 40.0-44.9, adult [...] 8:45 AM EDT): Gabapentin 600 mg at [facility] Assessment & Plan (05/07/2021 11:11 AM EDT): [...] T-tube placement 04/16/2017 05/29/2017 [facility] [facility] Other*[id number] 04/13/2013 08/27/2016 Overview (04/13/2013): Study Title: Genomic Markers for Patients with Cardiovascular Disease Project # [id number] Director Social: Siena Laws MD [phone] Hypertensive heart disease 03/25/2013 1 07/29/2016 Neuropathy, [...] yrs 09/16/2018,04/14/2018,03/1104/11/2018 Pneumococcal Conjugate Vacci ne, 20-valent ([id number]) 06/22/2024,12/02/2023(Deferred: - pt states she's already received) [...] Author No 12/11/2022 6:51 PM EDT Rabia Wliey RN documented in this encounter Plan of Treatment Upcoming Encounters Date Type Department Care Team (Late st Contact Info) Description 10/21/2024 11:20 AM EDT Office Visit Family Practice, [facility] [address] [phone] Mohini Marley MD [address] [address] 11/02/2024 9:30 AM EDT Home Visit [facility] [address] [address] Heidi Garcia RN [address] [address] 11/04/2024 9:00 AM EDT Telemedicine Pharmacy, [facility] [address] [address] [place] [address] [address] 11/25/2024 10:00 AM EDT Imaging Radiology [facility] [address] [phone] 11/30/2024 10:00 AM EDT Nurse Only Nutrition & Weight Management, [facility] [address] [phone] Boni Nurse Gi Nutrition [facility] [address] [place] [address] 12/06/2024 10:30 AM EDT Office Visit Cardiology, [facility] [address] [place] [phone] Megan Alex PA-C [address] [place] [address] 12/09/2024 12:15 PM EDT Hospital Encounter OR [facility], Operating Room, [facility] - 4th Floor [address] [facility] [address] [place] [phone] Himanshu Rivero, DO [address] [place] [address] 12/09/2024 12:15 PM EDT - 12/09/2024 12:56 PM EDT Surgery OR [facility], Operating Room, [facility] - 4th Floor [address] [facility] [place] [phone] Himanshu Rivero, [address] [place] [address] COLONOSCOPY FLEXIBLE PROXIMAL DIAGNOSTIC 12/15/2024 8:30 AM EDT Office Visit Cardiology, [facility] [address] [place] [address] Josh Guadalupe MD [address] [place] [address] 12/21/2024 10:30 AM EDT Office Visit Gastroenterology, [facility] [address] [place] [phone] Emi Queen CRNP [address] [place] [address] 12/28/2024 10:00 AM EDT Cardiac Studies Cardiology, [facility] [address] [place] [phone] [place], [facility] [address] [place] [address] 03/10/2025 1:20 PM EDT [facility] [address] [facility] [address] [place] [phone] Joanne Parks PA-C [address] [place] [address] [place] [address] 04/13/2025 10:00 AM EDT Office Visit Cardiology, [facility] [address] [place] [phone] Tracey Kirkpatrick PA-C [address] [place] [address] Scheduled Procedures Name Priority Associated Diagnoses Date/Ti [...] encounter Medical Devices Implanted Type Area Customer Service Officer Device Identifier Shelf Expiration Date Model / Serial / Lot Coil Vortex 35 Pltinm [id number] - [id number] Implanted:Qty: 1 on 11/27/2021 by Sterling Cates MD at [facility] Right: Upper Arm [employer] : NEURO INTR [id number] 08/15/2024 [id number] / [id number] Coil Vortex 35 Pltinm [id number] - [id number] Implanted:Qty: 1 on 11/27/2021 by Sterling Cates MD at OR [facility] Right: Upper Arm [employer] : NEURO INTR [id number] 08/15/2024 [id number] / / [id number] Coil Vortex 35 Pltinm [id number] - [id number] Implanted:Qty: 1 on 11/27/2021 by Sterling Cates MD at OR [facility] Right: Upper Arm [employer] : NEURO INTR [id number] 08/15/2024 [id number] / / [id number] Coil Vortex 35 Pltinm [id number] - [id number] Implanted:Qty: 1 on 11/27/2021 by Sterling Cates MD at OR [facility] Right: Upper Arm [employer] : NEURO INTR [id number] 05/16/2024 [id number] / / [id number] Azur 35 Detachable 5mm 11cm - [id number] Implanted:Qty: 1 on 03/19/2022 by Jose Devine MD at OR [facility] Right: Wrist [employer] [id number] 10/18/2025 [id number] / / [id number] Azur 35 Detachable 5mm 11cm - [id number] Implanted:Qty: 1 on 03/19/2022 by Jose Devine MD at OR [facility] Right: Wrist [employer] [id number] 06/19/2026 [id number] / / [id number] Mesh Flat Sheet 10x14 [id number] - [id number] Implanted:Qty: 1 on 12/11/2022 by Eros Dash MD at OR [facility] N/A: Abdomen CR BARD : DAVOL [id number] 06/17/2027 [id number] / / [id number] Defib [place] Mri Gis Software Engineer-D - [id number] Implanted:Qty: 1 on 10/07/2024 by Arianne Carrizales IV, MD at [facility] [employer] : CRM 07/03/2025 [id number] / [id number] / [id number] Envelope Antibacteral Tyrx - [id number] Implanted:Qty: 1 on 10/07/2024 by Arianne Carrizales IV, MD at [facility] [employer] : CRM [id number] 06/02/2025 [id number] / / [id number] Lead Defib Sprint 6935m-62 - [id number] Implanted:Qty: 1 on 10/07/2024 by Arianne Carrizales IV, MD at [facility] [employer] : CRM [id number] 08/03/2026 [id number] 62 / [id number] / [id number] documented as of this encounter Procedures Procedure Name Priority Date/Time Associated Diagnosis Comments RADIOLOGY EXAM - GENERAL RAD (IMAGES ONLY,NO REPORT) Routine 10/04/2024 8:45 PM EDT documented in this encounter Results * RADIOLOGY EXAM - GENERAL RAD (IMAGES ONLY,NO REPORT) (10/04/2024 8:45 PM EDT) 10/04/2024 8:42 PM EDT Narrative Scheduling, Silent - 10/19/2024 10:31 AM EDT This is an imaging study not interpreted or resulted by a E-D[employer] or [employer] contracted radiologist. Kaden Arana MD RADIOLOGY (RAD GENERAL) Final Re sult documented in this encounter Advance Directives Documents on File Type Date Recorded Patient Audience Development Manager Expl anation POLST 11/13/2020 POLST PENNSYLVA [...] Name Relationship Healthcare Agent [facility] Communication Zhen Finley Spouse Health Care Agent Care Teams System Dispatcher Relationship Specialty Start Date End Date Luis Fernando Rojas MD [address] [facility] [address] [place] [address] PCP - General Family Medicine 09/23/16 documented as of this encounter
--- OUTSIDE RECORDS SUMMARY | 2024-11-04 03:12 | External Medical Summary | Summary of Care ---
Author Name Unknown Organization [facility] Address [address] [place] [address] Phone [phone] Care Team Providers Care Supervisor Production Department Name Role Phone Luis Fernando Rojas MD Primary Care Provider [phone] Reason for Visit * Reason Onset Date Comments Appointment 10/19/2024 [facility] Clinic Encounter Details Date Type Department Care Team (Late st Contact Info) Description 10/19/2024 Telephone Pharm[facility], [facility] [address] [facility] [address] Appointment ([facility] /) Allergies Active Allergy Reactions Criticality [...] directed. 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 10/15/2022 [place] [facility] OTHER*[id number] 01/01/2022 S/P gastric bypass 01/01/[address] [...] Insulin long-term use 11/19/20182018 Overview (05/20/2019): Duplicate intermission coordinator (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 insulin 11/19/2018 10/08/2022 Morbid [...] T-tube placement 04/16/2017 05/29/2017 [facility] Other*[id number] 04/13/2013 08/27/2016 Overview (04/13/2013): Study Title: Genomic Markers for Patients with Cardiovascular Disease Project # [id number] Robot Programmer: Siena Laws MD [phone] Hypertensive heart disease 03/25/2013 1 07/29/2016 Neuropathy, [...] yrs 09/16/2018,04/14/2018,03/1104/11/2018 Pneumococcal Conjugate Vacci ne, 20-valent ([id number]) 06/22/2024,12/02/2023(Deferred: - pt states she's already received) [...] No 10/17/2024 Does the household have a [facility] source of income? (Household - for ages [...] Author Yes 10/05/2024 3:55 PM EDT Honorio Ramírez, RN * Do you have difficulty dressing [...] encounter Miscellaneous Notes * Telephone Encounter - Stephanie Rod RPh - 10/19/2024 4:36 PM EDT No referral for [place] cardio Looks like patient see's [facility] maday, will forward them this message to get rescheduled Stephanie Rod Pharm D Clinical [facility] Pharmacist Cardiology 10/19/2024,4:36 PM * Telephone Encounter - Leonel Milton OSA - 10/19/2024 1:24 PM EDT Person calling: Candi Finley Relationship to patient: self Phone/Fax to return call: [phone] Reason for call(brief): Schedule [facility] Pharmacy: N/A Provider Name: [facility] Clinic - [facility] [place] Detailed message to office: Patient calling to schedule [facility] appointment. Patient can be reached at [phone] to schedule appointment. Thank You, Leonel Ext [phone] documented in this encounter Plan of Treatment Upcoming Encounters Date Type Department Care Team (Late st Contact Info) Description 10/21/2024 11:20 AM EDT [facility] [address] [facility] [facility] [place] [phone] Mohini Marley MD [address] [address] 11/02/2024 9:30 AM EDT Home Visit [facility] [address] [place] [address] Heidi Garcia RN [address] [place] [address] 11/25/2024 10:00 AM EDT Imaging Radiology [facility] [address] [place] [phone] 11/30/2024 10:00 AM EDT Nurse Only Nutrition & Weight Management, [facility] [address] [place] [phone] [facility], Nurse Gi Nutrition [facility] [address] [place] [address] 12/06/2024 10:30 AM EDT Office Visit Cardiology, [facility] [address] [place] [phone] Megan Alex, [facility]orieC [address] [place] [address] 12/09/2024 12:15 PM EDT Hospital Encounter OR [facility], Operating Room, [facility] - 4th Floor [address] [place], [place] [address], [place] [address] Himanshu Rivero, DO [address] [place] [address] 12/09/2024 12:15 PM EDT - 12/09/2024 12:56 PM EDT Surgery OR [facility], Operating Room, [facility] - 4th Floor [address] [facility] [place] [address] Himanshu Rivero, DO [address] [place] [address] COLONOSCOPY FLEXIBLE PROXIMAL DIAGNOSTIC 12/15/2024 8:30 AM EDT Office Visit Cardiology, [facility] [address] [place] [phone] Josh Guadalupe MD [address] [place] [address] 12/21/2024 10:30 AM EDT Office Visit Gastroenterology, [facility] [address] [place] [phone] Emi Queen CRNP [address] [place] [address] 12/28/2024 10:00 AM EDT Cardiac Studies Cardiology, [facility] [address] [place] [phone] [facility] [address] [place] [address] 03/10/2025 1:20 PM EDT Office Visit DermatologyMaday [address] [phone] Joanne Parks [place] [address] [place] [address] [place] [place] [address] 04/13/2025 10:00 AM EDT Office Visit Cardiology, [facility] [address] [place] [address] Tracey Kirkpatrick PA-C [address] [place] [address] Scheduled Procedures Name Priority Associated Diagnoses Date/Ti [...] this encounter Medical Devices Implanted Type Area Heel Scourer Device Identifier Shelf Expiration Date Model / Serial / Lot Coil Vortex 35 Pltinm [id number] - [id number] Implanted:Qty: 1 on 11/27/2021 by Sterling Cates [place] [facility] Right: Upper Arm [employer] : NEURO INTR [id number] 08/15/2024 [id number] Coil Vortex 35 Pltinm 259913 - [id number] Implanted:Qty: 1 on 11/27/2021 by Sterling Cates MD [place] [facility] Right: Upper Arm [employer] : NEURO INTR [id number] 08/15/2024 [id number] Coil Vortex 35 Pltinm 255347 - [id number] Implanted:Qty: 1 on 11/27/2021 by Sterling Cates MD at [place] [facility] Right: Upper Arm [employer] : NEURO INTR [id number] 08/15/2024 [id number] Coil Vortex 35 Pltinm 498260 - [id number] Implanted:Qty: 1 on 11/27/2021 by Sterling Cates MD [place] [facility] Right: Upper Arm [employer] : NEURO INTR [id number] 05/16/2024 [id number] Azur 35 Detachable 5mm 11cm - [id number] Implanted:Qty: 1 on 03/19/2022 by Jose Devine MD [place] [facility] Right: Wrist [employer] [id number] 10/18/2025 [id number] / / [id number] Azur 35 Detachable 5mm 11cm - [id number] Implanted:Qty: 1 on 03/19/2022 by Jose Devine MD [place] [facility] Right: Wrist [employer] [id number] 06/19/2026 [id number] / / [id number] Mesh Flat Sheet 10x14 [id number] - [id number] Implanted:Qty: 1 on 12/11/2022 by Eros Dash MD at [place] [facility] N/A: Abdomen CR BARD : DAVOL [id number] 06/17/2027 [id number] / / [id number] Defib [place] Mri Layaway Clerk-D - [id number] Implanted:Qty: 1 on 10/07/2024 by Arianne Carrizales IV, MD at [facility] [employer] : FANTASMA 07/03/2025 [id number] / [id number] / [id number] Envelope Antibacteral Tyrx - [id number] Implanted:Qty: 1 on 10/07/2024 by Arianne Carrizales IV, MD at [facility] [employer] : CRM [id number] 06/02/2025 [id number] 133 / / [id number] Lead Defib Sprint 6935m-62 - [id number] Implanted:Qty: 1 on 10/07/2024 by Arianne Carrizales IV, MD at [facility] [employer] : CRM [id number] 08/03/2026 6935M 62 / [id number] / [id number] documented as of this encounter Advance Directives Documents on File Type Date Recorded Patient Auto Clutch Rebuilder Expl anation POLST 11/13/2020 POLST PENNSYLVA VALERIA [...] Spouse Health Care Agent Care Teams Supervisor Production Department Relationship Specialty Start Date End Date Luis Fernando Rojas MD [address] [address] PCP - General Family Medicine 09/23/16 documented as of this encounter
--- OUTSIDE RECORDS SUMMARY | 2024-11-04 03:12 | External Medical Summary | Summary of Care ---
Author Name Unknown Organization [facility] Address [address] [place] [address] Phone [phone] Care Team Providers Care Repair Service Dispatcher Name Role Phone Luis Fernando Rojas MD Primary Care Provider [phone] Reason for Visit * Reason Onset Date Comments Infection 10/15/2024 Encounter Details Date Type Department Care Team (Late st Contact Info) Description 10/15/2024 Telephone [facility], [facility] [address] [place] [address] Elisa Osman OSA [address] [place] [address] Infection Allergies Active Allergy Reactions Criticality Noted Date Comments Salvador Inhibitors Other (Please comment),Cough High HyperKalemia documented as of this encounter (statuses as of 10/17/2024) Medications Melatonin 10 MG Tablet Take 12 [...] directed. Replace every 14 days (supplied through [facility]) 7 Each 3 1 Active CPAP every [...] 1,000 mcgIndications:S/P gastric bypass 1000 mcg IM [id number] 10/15/2022 07/19/2025 Active vitamin b-12 (Cyanocobalamin) inj 1,000 mcgIndications:Morbid obesity with BMI of 40.0-44.9, adult (HCC),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 [id number] 10/17/2023 12/11/19 25 Active documented as of this encounter (statuses as of 10/17/2024) Active Problems Problem Noted Date Diagnosed Date [...] detachments not involving maculae 10/15/2022 [facility] OTHER*[id number] 01/01/2022 S/P gastric bypass 01/01/[address] [...] as of this encounter (statuses as of 10/17/2024) Resolved Problems Problem Noted Date Diagnosed Date [...] T-tube placement 04/16/2017 05/29/2017 [employer] [facility] Other*[id number] 04/13/2013 08/27/2016 Overview (04/13/2013): Study Title: Genomic Markers for Patients with Cardiovascular Disease Project # [id number] Tile Sprayer: Siena Laws MD [phone] Hypertensive heart disease 03/25/2013 1 07/29/2016 Neuropathy, [...] as of this encounter (statuses as of 10/17/2024) Immunizations Name Administration Dates Next Due COVID-19 mRNA, LNP-s, No Pre serve, 2-Dose Series (Moderna) 04/09/2021,09/23/2020,08/19/2020 COVID-19, LNP-s, No Preserve , Espinoza-sucrose, Ages 12+ (Pfizer) 01/08/2022 COVID-19, MRNA-LNP, PF, 30 M CG/0.3 mL, 12 YRS AND ABOVE, IM ([employer]-Comirnaty) 06/02/2024 HEPATITIS B VACCINE, RECOMB, 20 MCG/ML, ADULT (HEPLISAV-B) 09/05/2021,05/09/2021,04/04/2021,02/18 Hepatitis B, 20+ yrs 09/16/2018,04/14/2018,03/1104/11/2018 Pneumococcal Conjugate Vacci ne, 20-valent ([id number]) 06/22/2024,12/02/2023(Deferred: - pt states she's already received) [...] No 10/17/2024 Does the household have a [facility] source of income? (Household - for [...] encounter Miscellaneous Notes * Telephone Encounter - Sam Waggoner DO - 10/17/2024 1:01 PM EDT Photolithographer Doctor: Patient has left arm swelling and redness from after IV infiltrated last week. Patient Dialysis patient. Opting for Doxycycline 100 mg BID for 10 days( give dose after dialysis) If not improving can have dialysis do ancef IV documented in this encounter Plan of Treatment Upcoming Encounters Date Type Department Care Team (Late st Contact Info) Description 10/19/2024 11:00 AM EDT Cardiac Studies Cardiology, [facility] [address] [place] [phone] [facility]ose [facility] [address] [place] [address] 11/02/2024 9:30 AM EDT Home Visit Luis A at Home, [facility] [address] [place] [address] Heidi Garcia, RN [address] [place] [address] 11/25/2024 10:00 AM EDT Imaging Radiology [facility] [address] [place] [phone] 11/30/2024 10:00 AM EDT Nurse Only Nutrition & Weight Management, [facility] [address] [place] [phone] Plata, Nurse Gi Nutrition [facility] [address] [place] [address] 12/09/2024 12:15 PM EDT Hospital Encounter OR GL, Operating Room, [facility] - 4th Floor [address] [facility] [address] [address] Himanshu Rivero, DO [address] [place] [address] 12/09/2024 12:15 PM EDT - 12/09/2024 12:56 PM EDT Surgery OR [facility], Operating Room, [facility] - 4th Floor [address] [facility] [place] [address] Himanshu Rivero, DO [address] [place] [address] COLONOSCOPY FLEXIBLE PROXIMAL DIAGNOSTIC 12/15/2024 8:30 AM EDT Office Visit Cardiology, [facility] [address] [place] [phone] Josh Guadalupe MD [address] [place] [address] 12/21/2024 10:30 AM EDT Office Visit Gastroenterology, [facility] [address] [place] [phone] Emi Queen CRNP [address] [place] [address] 03/10/2025 1:20 PM EDT Office Visit Dermatology, [address] [place] [address] Joanne Parks PA-C [address] [place] [address] [place] [address] Scheduled Procedures Name Priority Associated Diagnoses Date/Ti [...] this encounter Medical Devices Implanted Type Area Electronic Parts Salesperson Device Identifier Shelf Expiration Date Model / Serial / Lot Coil Vortex 35 Pltinm [id number] - [id number] Implanted:Qty: 1 on 11/27/2021 by Sterling Cates [place] [facility] [place]: Upper Arm [employer] : NEURO INTR [id number] 08/15/2024 [id number] Coil Vortex 35 Pltinm [id number] - [id number] Implanted:Qty: 1 on 11/27/2021 by Sterling Cates MD [place] [facility] [place]: Upper Arm [employer] : NEURO INTR [id number] 08/15/2024 [id number] Coil Vortex 35 Pltinm [id number] - [id number] Implanted:Qty: 1 on 11/27/2021 by Sterling Cates MD [place] [facility] [place]: Upper Arm [employer] : NEURO INTR [id number] 08/15/2024 [id number] Coil Vortex 35 Pltinm [id number] - [id number] Implanted:Qty: 1 on 11/27/2021 by Sterling Cates MD [place] [facility] [place]: Upper Arm [employer] : NEURO INTR [id number] 05/16/2024 [id number] Azur 35 Detachable 5mm 11cm - [id number] Implanted:Qty: 1 on 03/19/2022 by Jose Devine MD [place] [facility] [place]: Wrist [employer] [id number] 10/18/2025 [id number] / / [id number] Azur 35 Detachable 5mm 11cm - [id number] Implanted:Qty: 1 on 03/19/2022 by Jose Devine MD [place] [facility] [place]: Wrist [employer] [id number] 06/19/2026 [id number] / / [id number] Mesh Flat Sheet 10x14 [id number] - [id number] Implanted:Qty: 1 on 12/11/2022 by Eros Dash MD [place] [facility] N/A: Abdomen CR BARD : DAVOL [id number] 06/17/2027 [id number] / / [id number] Defib [place] Mri Lead Javascript Engineer-D - [id number] Implanted:Qty: 1 on 10/07/2024 by Arianne Carrizales IV, MD at [facility] [employer] : CRM 07/03/2025 [id number] / [id number] / [id number] Envelope Antibacteral Tyrx - [id number] Implanted:Qty: 1 on 10/07/2024 by Arianne Carrizales IV, MD at [facility] [employer] : CRM [id number] 06/02/2025 [id number] / / [id number] Lead Defib Sprint 6935m-62 - [id number] Implanted:Qty: 1 on 10/07/2024 by Arianne Carrizales IV, MD at [facility] [employer] : CRM [id number] 08/03/2026 [id number] 62 / [id number] / [id number] documented as of this encounter Visit Diagnoses Diagnosis Marginal ulcer- Primary Gastrojejunal ulcer, unspecified as acute or chronic, without mention of hemorrhage, perforation, or obstruction ESRD (end stage renal disease) on dialysis ([facility]) End stage renal disease Hypertensive 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 congestive heart failure and stage 5 chronic kidney disease on chronic dialysis ([facility]) Acute posthemorrhagic anemia Type 2 diabetes mellitus 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 dialysis, with long-term current use of insulin ([facility]) Hypothyroidism (acquired) Unspecified hypothyroidism Malignant melanoma of right upper extremity ([facility]) Aortic atherosclerosis ([facility]) Atherosclerosis of aorta Diabetic polyneuropathy associated with type 2 diabetes mellitus ([facility]) Advanced care planning/counseling discussion- Primary Other specified counseling Hypertensive 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 congestive heart failure and stage 5 chronic kidney disease on chronic dialysis ([facility]) Presence of cardiac pacemaker Cardiac pacemaker in situ SSS (sick sinus syndrome) ([facility]) Sinoatrial node dysfunction MINISTERIO on CPAP Obstructive sleep apnea (adult) (pediatric) Hypothyroidism (acquired) Unspecified hypothyroidism Type 2 diabetes mellitus 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 dialysis, with long-term current use of insulin ([facility]) S/P gastric bypass Bariatric surgery status ESRD (end stage renal disease) on dialysis ([facility]) End stage renal disease Recurrent ventral incisional hernia Incisional hernia without mention of obstruction or gangrene NO SHOW/FAILED TO KEEP APPOINTMENT- Primary Chronic diastolic heart failure ([facility])- Primary Chronic diastolic heart failure HTN, goal below 140/90 Unspecified essential hypertension Type 2 diabetes mellitus with hemoglobin A1c goal of less than 7.0% ([facility]) Hypothyroidism (acquired) Unspecified hypothyroidism Dyslipidemia, goal LDL below 100 Other and unspecified hyperlipidemia Major depressive disorder, single episode, moderate ([facility]) Major depressive disorder, single episode, moderate 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, with long-term current use of insulin ([facility]) Hyperparathyroidism, secondary renal (HCC) Secondary hyperparathyroidism (of renal origin) End stage renal disease on dialysis (HCC) End stage renal disease MINISTERIO on CPAP Obstructive sleep apnea (adult) (pediatric) Diarrhea, unspecified type Cellulitis of left arm- Primary Cellulitis and abscess of upper arm and forearm History of colonic polyps Personal history of colonic polyps Diarrhea documented in this encounter Advance Directives Documents on File Type Date Recorded Patient Equipment Mechanic Expl anation POLST 11/13/2020 POLST NASREEN SHAW [...] Finley Spouse Health Care Agent Care Teams Repair Service Dispatcher Relationship Specialty Start Date End Date Luis Fernando Rojas MD [address] [place] [address] PCP - General Family Medicine 09/23/16 documented as of this encounter
--- OUTSIDE RECORDS SUMMARY | 2024-11-04 03:12 | External Medical Summary | Summary of Care ---
Author Name Unknown Organization [facility] Address [address] [place] [address] Phone [phone] Care Team Providers Care Associate Juvenile Court Judge Name Role Phone Luis Fernando Rojas MD Primary Care Provider [phone] Encounter Details Date Type Department Care Team (Late st Contact Info) Description 10/04/2024 Orders Only [facility]iology [facility] [place] [address] [place] [address] Kaden Arana MD [address] [place] [address] Allergies Active Allergy Reactions Criticality Noted Date Comments Salvador Inhibitors Other (Please comment),Cough High HyperKalemia documented as of this encounter (statuses as of 10/19/2024) Medications Melatonin 10 MG Tablet Take 12 [...] 1,000 mcgIndications:S/P gastric bypass 1000 mcg IM [id number] 10/15/2022 07/19/2025 Active vitamin b-12 (Cyanocobalamin) inj 1,000 mcgIndications:Morbid obesity with BMI of 40.0-44.9, adult (HCC),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 [id number] 10/17/2023 12/11/19 25 Active documented as of this encounter (statuses as of 10/19/2024) Active Problems Problem Noted Date Diagnosed Date [...] 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 10/15/2022 [facility] OTHER*[id number] 01/01/2022 S/P gastric bypass 01/01/[address] [...] 8:45 AM EDT): Gabapentin 600 mg at [facility] Assessment & Plan (05/07/2021 11:11 AM [...] as of this encounter (statuses as of 10/19/2024) Resolved Problems Problem Noted Date Diagnosed Date [...] T-tube placement 04/16/2017 05/29/2017 [employer] Other*[id number] 04/13/2013 08/27/2016 Overview (04/13/2013): Study Title: Genomic Markers for Patients with Cardiovascular Disease Project # [id number] Corporation Lawyer: Siena Laws MD [phone] Hypertensive heart disease 03/25/2013 1 07/29/2016 Neuropathy, [...] as of this encounter (statuses as of 10/19/2024) Immunizations Name Administration Dates Next Due COVID-19 mRNA, LNP-s, No Pre serve, 2-Dose Series (Moderna) 04/09/2021,09/23/2020,08/19/2020 COVID-19, LNP-s, No Preserve , Espinoza-sucrose, Ages 12+ (Pfizer) 01/08/2022 COVID-19, MRNA-LNP, PF, 30 M CG/0.3 mL, 12 YRS AND ABOVE, IM (PFIZER-Comirnaty) 06/02/2024 HEPATITIS B VACCINE, RECOMB, 20 MCG/ML, ADULT (HEPLISAV-B) 09/05/2021,05/09/2021,04/04/2021,02/18 Hepatitis B, 20+ yrs 09/16/2018,04/14/2018,03/1104/11/2018 Pneumococcal Conjugate Vacci ne, 20-valent (Bazvgow10) 06/22/2024,12/02/2023(Deferred: - pt states she's already received) [...] No 10/17/2024 Does the household have a [facility] source of income? (Household - for ages [...] Care Team (Late st Contact Info) Description 10/26/2024 8:40 AM EDT Office [facility] [address] [facility] [place] [phone] Mohini Marley MD [address] [facility] [place] [address] 11/02/2024 9:30 AM EDT Home Visit [facility] [address] [place] [address] Heidi Garcia RN [address] [place] [address] 11/25/2024 10:00 AM EDT Imaging Radiology [facility] [address] [place] [phone] 11/30/2024 10:00 AM EDT Nurse Only Nutrition & Weight Management, [facility] [address] [place] [phone] Boni, Nurse Gi Nutrition [facility] [address] [address] 12/09/2024 12:15 PM EDT Hospital Encounter OR [facility], Operating Room, [facility] - 4th Floor [address] [place] [address] Himanshu Rivero, DO [address] [place] [address] 12/09/2024 12:15 PM EDT - 12/09/2024 12:56 PM EDT Surgery OR [facility], Operating Room, [facility] - 4th Floor [address] [facility] [place] [address] Himanshu Rivero, DO [address] [place] [address] COLONOSCOPY FLEXIBLE PROXIMAL DIAGNOSTIC 12/15/2024 8:30 AM EDT Office Visit Cardiology, [facility] [address] [place] [phone] Josh [facility]adalupe [facility] [address] [facility] [address] 12/21/2024 10:30 AM EDT Office Visit Gastroenterology, [facility] [address] [place] [phone] Emi Queen CRNP [address] [place] [address] 12/28/2024 10:00 AM EDT Cardiac Studies Cardiology, [facility] [address] [place] [phone] Susi Mi [facility] [address] [place] [address] 03/10/2025 1:20 PM EDT Office Visit [facility]ermatologySidney [address] [place] [phone] Joanne Parks PA-C [address] [place] [address] [place] [address] 04/13/2025 10:00 AM EDT Office Visit Cardiology, [facility] [address] [place] [address] Tracey Kirkpatrick PA-C [address] [facility] [place] [address] Scheduled Procedures Name Priority Associated Diagnoses [...] this encounter Medical Devices Implanted Type Area Publication Distributor Device Identifier Shelf Expiration Date Model / Serial / Lot Coil Vortex 35 Pltinm [id number] - [id number] Implanted:Qty: 1 on 11/27/2021 by Sterling Cates MD at [place] [facility] Right: Upper Arm [employer] : NEURO INTR [id number] 08/15/2024 [id number] Coil Vortex 35 Pltinm [id number] - [id number] Implanted:Qty: 1 on 11/27/2021 by Sterling Cates MD at OR [facility] Right: Upper Arm [employer] : NEURO INTR [id number] 08/15/2024 [id number] Coil Vortex 35 Pltinm [id number] - [id number] Implanted:Qty: 1 on 11/27/2021 by Sterling Cates MD at [place] [facility] Right: Upper Arm [employer] : NEURO INTR [id number] 08/15/2024 [id number] Coil Vortex 35 Pltinm [id number] - [id number] Implanted:Qty: 1 on 11/27/2021 by Sterling Cates MD at [place] [facility] Right: Upper Arm [employer] : NEURO INTR [id number] 05/16/2024 [id number] / [id number] Azur 35 Detachable 5mm 11cm - [id number] Implanted:Qty: 1 on 03/19/2022 by Jose Devine MD at [place] [facility] Right: Wrist [employer] [id number] 10/18/2025 [id number] / / [id number] Azur 35 Detachable 5mm 11cm - [id number] Implanted:Qty: 1 on 03/19/2022 by Jose Devine MD at OR [facility] Right: Wrist [employer] [id number] 06/19/2026 [id number] / / [id number] Mesh Flat Sheet 10x14 [id number] - [id number] Implanted:Qty: 1 on 12/11/2022 by Eros Dash MD at OR [facility] N/A: Abdomen CR BARD : DAVOL [id number] 06/17/2027 [id number] / / [id number] Defib [place] Mri Phytopathologist-D - [id number] Implanted:Qty: 1 on 10/07/2024 by Arianne Carrizales IV, MD at [facility] [employer] : FANTASMA 07/03/2025 [id number] / [id number] / [id number] Envelope Antibacteral Tyrx - [id number] Implanted:Qty: 1 on 10/07/2024 by Arianne Carrizales IV, MD at [facility] [employer] : [employer]ASMA [id number] 06/02/2025 [id number] 133 / / [id number] Lead Defib Sprint 6935m-62 - [id number] Implanted:Qty: 1 on 10/07/2024 by Arianne Carrizales IV, MD at [facility] [employer] : F[employer]ASMA [id number] 08/03/2026 [id number] 62 / [id number] / [id number] documented as of this encounter Procedures Procedure [...] interpreted or resulted by a [facility] or [facility] contracted radiologist. Kaden Arana MD RADIOLOGY (RAD GENERAL) Final Re sult documented in this encounter Additional Health Concerns Infection Onset Date Last Indicated Resolved Time Enterovirus (resp)/Rhinoviru s Comment:Per Dr. Garsia documentation, pt rhinovirus+ 10/04 at [facility] 10/04/2024 10/06/2024 10/15/19 12:06 PM EDT documented as of this encounter Advance Directives Documents on File Type Date Recorded Patient Manager Bench Expl anation HENRY 11/13/2020 POLST NASREEN SHAW ORDERS FOR LIFE-SUSTAINING [...] Finley Spouse Health Care Agent Care Teams Associate Juvenile Court Judge Relationship Specialty Start Date End Date Luis Fernando Rojas MD [address] [place] [address] PCP - General Family Medicine 09/23/16 documented as of this encounter
--- OUTSIDE RECORDS SUMMARY | 2024-11-04 03:12 | External Medical Summary | Summary of Care ---
Author Name Unknown Organization [facility] Address [address] [place] [address] Phone [phone] Care Team Providers Care Pencils Washer Name Role Phone Luis Fernando Rojas MD Primary Care Provider [phone] Reason for Visit * Reason Comments Defibrillator Clinic Encounter Details Date Type Department Care Team (Latest Contact Info) Description 10/19/2024 11:00 AM EDT Cardiac Studies Cardiology, [facility] [address] [place] [address] Movjose manuel, Pac[facility] [address] [place] [address] SSS (sick sinus syndrome) ([facility])*; Presence of cardiac pacemaker Allergies Active Allergy Reactions Criticality Noted Date [...] than 7.0% ([facility]) Use 4 times daily with insulin [...] (30 minutes before dialysis and another 5mg intermediate through dialysis if needed). 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 10/15/2022 [facility] OTHER*[id number] 01/01/2022 S/P gastric bypass 01/01/2022 [address] [...] AM EDT): Gabapentin 600 mg at [facility] Assessment & Plan (05/07/2021 11:11 AM EDT): [...] T-tube placement 04/16/2017 05/29/2017 [employer] Other*[id number] 04/13/2013 08/27/2016 Overview (04/13/2013): Study Title: Genomic Markers for Patients with Cardiovascular Disease Project # [id number] Peoplesoft: Siena Laws MD [phone] Hypertensive heart disease 03/25/2013 1 07/29/2016 Neuropathy, [...] yrs 09/16/2018,04/14/2018,03/1104/11/2018 Pneumococcal Conjugate Vacci ne, 20-valent ([id number]) 06/22/2024,12/02/2023(Deferred: - pt states she's already received) [...] documented in this encounter Progress Notes * Juan García RN - 10/19/2024 11:38 AM EDT No chief complaint on file. In office interrogation of Medtronic Defibrilator performed. Dressing removed, Left pectoral device pocket is healthy without erythema, swelling, pain, or drainage. Incision care instructions reviewed with patient. Providers see scanned report in Media tab labeled MURJ. Juan García RN documented in this encounter Plan of Treatment Upcoming Encounters Date Type Department Care Team (Late st Contact Info) Description 10/26/2024 8:40 AM EDT Office Visit [facility] [address] [place] [phone] Mohini Marley MD [address] [place] [address] 11/02/2024 9:30 AM EDT [facility] Visit [facility], [facility] [address] [place] [address] Heidi Garcia, RN [address] [place] [address] 11/25/2024 10:00 AM EDT Imaging Radiology [facility] [address] [place] [address] 11/30/2024 10:00 AM EDT Nurse Only Nutrition & Weight Management, [facility] [address] [place] [address] [facility], Nurse Gi Nutrition [facility] [address] [place] [address] 12/06/2024 10:30 AM EDT Office Visit Cardiology, [facility] [address] [place] [address] Megan Alex PA-C [address] [place] [address] 12/09/2024 12:15 PM EDT Hospital Encounter OR [facility], Operating Room, [facility] - 4th Floor [address] [facility] [place] [address] Himanshu Rivero, DO [address] [place] [address] 12/09/2024 12:15 PM EDT - 12/09/2024 12:56 PM EDT Surgery OR [facility], Operating Room, [facility] - 4th Floor [address] [facility] [place] [phone] Himanshu Rivero, DO [address] [place] [address] COLONOSCOPY FLEXIBLE PROXIMAL DIAGNOSTIC 12/15/2024 8:30 AM EDT Office Visit Cardiology, [facility] [address] [place] [address] Josh Guadalupe MD [address] [place] [address] 12/21/2024 10:30 AM EDT Office Visit Gastroenterology, [facility] [address] [place] [phone] Emi Queen CRNP [address] [place] [address] 12/28/2024 10:00 AM EDT Cardiac Studies Cardiology, [facility] [address] [place] [phone] [place], [facility] [address] [place] [address] 03/10/2025 1:20 PM EDT [facility] [address] [facility] [place] [phone] Joanne Parks PA-C [address] [place] [address] [place] [address] 04/13/2025 10:00 AM EDT Office Visit Cardiology, [facility] [address] [place] [phone] Tracey Kirkpatrick PA-C [address] [place], [place] [address] [address] Scheduled Procedures Name Priority Associated Diagnoses Date/Ti [...] this encounter Medical Devices Implanted Type Area Home And Family Living Professor Device Identifier Shelf Expiration Date Model / Serial / Lot Coil Vortex 35 Pltinm [id number] - [id number] Implanted:Qty: 1 on 11/27/2021 by Sterling Cates MD at OR [facility] Right: Upper Arm [employer] : NEURO INTR [id number] 08/15/2024 [id number] / / [id number] Coil Vortex 35 Pltinm [id number] - [id number] Implanted:Qty: 1 on 11/27/2021 by Sterling Cates MD at OR [facility] Right: Upper Arm [employer] : NEURO INTR [id number] 08/15/2024 [id number] / / [id number] Coil Vortex 35 Pltinm [id number] - [id number] Implanted:Qty: 1 on 11/27/2021 by Sterling Cates MD at OR [facility] Right: Upper Arm [employer] : NEURO INTR [id number] 08/15/2024 [id number] / / [id number] Coil Vortex 35 Pltinm [id number] - [id number] Implanted:Qty: 1 on 11/27/2021 by Sterling Cates MD at OR [facility] Right: Upper Arm [employer] : NEURO INTR [id number] 05/16/2024 [id number] / [id number] Azur 35 Detachable 5mm 11cm - [id number] Implanted:Qty: 1 on 03/19/2022 by Jose Devine MD at OR [facility] Right: Wrist DGTS [id number] 10/18/2025 [id number] / / [id number] Azur 35 Detachable 5mm 11cm - [id number] Implanted:Qty: 1 on 03/19/2022 by Jose Devine MD at OR [facility] Right: Wrist DGTS [id number] 06/19/2026 [id number] / / [id number] Mesh Flat Sheet 10x14 [id number] - [id number] Implanted:Qty: 1 on 12/11/2022 by Eros Dash MD at OR [facility] N/A: Abdomen CR BARD : DAVOL [id number] 06/17/2027 [id number] / / [id number] Defib Quemado Mri Cane Flume Watcher-D - [id number] Implanted:Qty: 1 on 10/07/2024 by Arianne Carrizales IV, MD at [facility] [employer] : FANTASMA 07/03/2025 [id number] / [id number] / [id number] Envelope Antibacteral Tyrx - [id number] Implanted:Qty: 1 on 10/07/2024 by Arianne Carrizales IV, MD at [facility] [employer] : [facility] [id number] 06/02/2025 [id number] / / [id number] Lead Defib Sprint 6935m-62 - [id number] Implanted:Qty: 1 on 10/07/2024 by Arianne Carrizales IV, MD at [facility] [employer] : [facility] [id number] 08/03/2026 [id number] 62 / [id number] / [id number] documented as of this encounter Visit Diagnoses [...] long-term current use of insulin ([facility]) S/P gastric bypass Bariatric surgery status ESRD (end stage renal disease) on dialysis ([facility]) End stage renal disease Recurrent ventral incisional hernia Incisional hernia without mention of obstruction or gangrene NO SHOW/FAILED TO KEEP APPOINTMENT- Primary Chronic diastolic heart failure ([facility])- Primary Chronic diastolic heart failure HTN, goal below 140/90 Unspecified essential hypertension Type 2 diabetes mellitus with hemoglobin A1c goal of less than 7.0% ([facility]) Hypothyroidism (acquired) Unspecified hypothyroidism Dyslipidemia, goal LDL below 100 Other and unspecified hyperlipidemia Major depressive disorder, single episode, moderate ([facility]) Major depressive disorder, single episode, moderate 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, with long-term current use of insulin ([facility]) Hyperparathyroidism, secondary renal ([facility]) Secondary hyperparathyroidism (of renal origin) End stage renal disease on dialysis ([facility]) End stage renal disease MINISTERIO on CPAP Obstructive sleep apnea (adult) (pediatric) Diarrhea, unspecified type SSS (sick sinus syndrome) ([facility])- Primary Sinoatrial node dysfunction Presence of cardiac pacemaker Cardiac pacemaker in situ History of colonic polyps Personal history of colonic polyps Diarrhea documented in this encounter Advance Directives Documents on File Type Date Recorded Patient Shoulder Sawyer Expl anation HENRY 11/13/2020 HENRY SHAW ORDERS [...] Finley Spouse Health Care Agent Care Teams Pencils Washer Relationship Specialty Start Date End Date Luis Fernando Rojas MD [address] [facility] [place] [address] PCP - General Family Medicine 09/23/16 documented as of this encounter
--- OUTSIDE RECORDS SUMMARY | 2024-11-04 03:12 | External Medical Summary | Summary of Care ---
Author Name Unknown Organization [facility] Address [address] [place] [address] Phone [phone] Care Team Providers Care Electroencephalograph Technician Name Role Phone Luis Fernando Rojas MD Primary Care Provider [phone] Encounter Details Date Type Department Care Team (Late st Contact Info) Description 10/17/2024 11:30 AM EDT Home Visit [facility] [address] [facility] [place] [address] [facility], Nurse [facility] [address] [facility] [place] [address] Allergies Active Allergy Reactions Criticality Noted Date [...] (30 minutes before dialysis and another 5mg fdc through dialysis if needed). 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 [id number] 10/17/2023 12/11/19 25 Active documented as of [...] detachments not involving maculae 10/15/2022 [facility] OTHER*[id number] 01/01/2022 S/P gastric bypass 01/01/2022 [address] AV [...] long-term use 11/19/20182018 Overview (05/20/2019): Duplicate top screw (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 insulin 11/19/2018 10/08/2022 Morbid [...] T-tube placement 04/16/2017 05/29/2017 [employer] [facility] Other*[id number] 04/13/2013 08/27/2016 Overview (04/13/2013): Study Title: Genomic Markers for Patients with Cardiovascular Disease Project # [id number] Retail Services Professional: Siena Laws MD [phone] Hypertensive heart disease 03/25/2013 1 07/29/2016 Neuropathy, [...] yrs 09/16/2018,04/14/2018,03/1104/11/2018 Pneumococcal Conjugate Vacci ne, 20-valent ([id number]) 06/22/2024,12/02/2023(Deferred: - pt states she's already received) [...] Sign Reading Time Taken Comments Blood Pressure 134/80 10/17/2024 12:35 PM EDT Pulse 84 10/17/2024 12:35 PM EDT Temperature 36.3 °C (97.3 °F) 10/17/2024 12:35 PM E DT Respiratory Rate 18 10/17/2024 12:35 PM EDT Oxygen Saturation 91% 10/17/2024 12:35 PM EDT Inhaled Oxygen Concentration - - Weight - - Height - - Body Mass Index - - documented in this encounter Functional Status * Are you deaf or do you have serious difficulty hearing? Answer Date of Assessment Author No 10/05/2024 3:55 PM Honorio Joiner RN * Are you blind or do you have serious difficulty seeing, even when wearing glasses? Answer Date of Assessment Author No 10/05/2024 3:55 PM Honorio Joiner RN * Do you have serious difficulty walking or climbing stairs? (5 years old or older) Answer Date of Assessment Author Yes 10/05/2024 3:55 PM Honorio Joiner RN * Do you have difficulty dressing or bathing? (5 years old or older) Answer Date of Assessment Author No 10/05/2024 3:55 PM Honorio Joiner RN * Because of a physical, mental, or emotional condition, do you have difficulty doing errands alone such as visiting a doctor’s office or shopping? (15 years old or older) Answer Date of Assessment Author No 10/05/2024 3:55 PM Honorio Joiner RN documented as of this encounter Mental Status * Because of a physical, mental, or emotional condition, do you have serious difficulty concentrating, remembering, or making decisions? (5 years old or older) Answer Entry Date Author No 10/05/2024 3:55 PM Honorio Joiner RN documented in this encounter Progress Notes * Gillian Davis RN - 10/17/2024 11:59 AM EDT Current Concerns: Patient seen for [facility] 10/04- presented with sob, fainting spells, [place] [facility] [place] with V-tach ICD placed 10/07.Discharged home 10/14 with Midodrine prescribed for prior to dialysis and prn during dialysis. Carvedilol, Amlodipine, Losartan, Tramadol, Benzonatate discontinued. Epic reflects current medication regimen. Non-removable dressing to left chest. Per discharge documentation- patient is high risk for open heart surgery- MVR Follow up with pacer clinic 10/19. Reports discomfort- lidoderm patch placed. Blood sugar 168 during visit(dexcom)- no insulin this am. Reports has been dropping. Followed by [facility]- missed last appointment d/t being inpatient. Encouraged to reschedule. Right arm fistula- Dialysis Fri/Fri/Fri VS wnl Lungs clear bilaterally Denies sob No LE edema noted Voids very little Reports diarrhea- 2 stools today. Has Colestid prn Appetite good 32 ounces fluid restriction Left arm FA- previous IV site- infiltrated last Friday- redness, warmth, discomfort noted. TT to Dr. Waggoner. Doxycycline ordered- to be taken after dialysis Physical Exam: Physical Exam Constitutional: Appearance: Normal appearance. Cardiovascular: Rate and Rhythm: Normal rate and regular rhythm. Pulses: Normal pulses. Pulmonary: Effort: Pulmonary effort is normal. Breath sounds: Normal breath sounds. Abdominal: General: Bowel sounds are normal. Palpations: Abdomen is soft. Musculoskeletal: General: Normal range of motion. Skin: General: Skin is warm and dry. Capillary Refill: Capillary refill takes 2 to 3 seconds. Findings: Erythema present. Comments: Left arm- red raised area- IV infiltration site. Neurological: General: No focal deficit present. Mental Status: She is alert and oriented to person, place, and time. Psychiatric: Mood and Affect: Mood normal. Behavior: Behavior normal. Review of Systems: Review of Systems Constitutional: Negative. Respiratory: Negative. Cardiovascular: Negative. Gastrointestinal: Positive for diarrhea. Genitourinary: Negative. Musculoskeletal: Positive for gait problem. Skin: Negative. Hematological: Negative. Psychiatric/Behavioral: Negative. Care Plan Goal Progress: Orders Placed: No orders of the defined types were placed in this encounter. Medications Given: Care Gaps: Care Gaps Care gaps closed this contact: Education;Medications (10/17/24 7396) Type of education: Clinical/disease (10/17/24 9010) Type of medication care gap: Medication adherence (Doxycycline PO left FA redness/erythema) (10/17/24 7131) documented in this encounter Plan of Treatment Upcoming Encounters Date Type Department Care Team (Late st Contact Info) Description 10/19/2024 11:00 AM EDT Cardiac Studies Cardiology, [address] [place] [address] [facility] [address] [place] [address] 11/02/2024 9:30 AM EDT Home Visit [facility], [facility] [address] [place] [address] Heidi Garcia, RN [address] [place] [address] 11/25/2024 10:00 AM EDT Imaging Radiology [facility] [address] [place] [address] 11/30/2024 10:00 AM EDT Nurse Only Nutrition & Weight Management, [facility] [address] [place] [address] [facility], Nurse Gi Nutrition [facility] [address] [place] [address] 12/09/2024 12:15 PM EDT Hospital Encounter OR [facility], Operating Room, [facility] - 4th Floor [address] [place] [phone] Himanshu Rivero, DO [address] [place] [address] 12/09/2024 12:15 PM EDT - 12/09/2024 12:56 PM EDT Surgery OR [facility], Operating Room, [facility] - 4th Floor [address] [place] [address] Himanshu Rivero, DO [address] [place] [address] COLONOSCOPY FLEXIBLE PROXIMAL DIAGNOSTIC 12/15/2024 8:30 AM EDT Office Visit Cardiology, [facility] [address] [place] [phone] Josh Guadalupe MD [address] [facility] [place] [address] 12/21/2024 10:30 AM EDT Office Visit Gastroenterology, [facility] [address] [place] [phone] Emi Queen CRNP [address] [place] [address] 03/10/2025 1:20 PM EDT [facility] [address] [facility] [place] [address] Joanne Parks PA-C [address] [place] [address] [place] [address] Scheduled Procedures Name Priority Associated Diagnoses Date/Ti [...] this encounter Medical Devices Implanted Type Area Seismic Prospecting Supervisor Device Identifier Shelf Expiration Date Model / Serial / Lot Coil Vortex 35 Pltinm [id number] - [id number] Implanted:Qty: 1 on 11/27/2021 by Sterling Cates MD [place] [facility] Right: Upper Arm [employer] : NEURO INTR [id number] 08/15/2024 [id number] Coil Vortex 35 Pltinm 566737 - [id number] Implanted:Qty: 1 on 11/27/2021 by Sterling Cates MD [place] [facility] Right: Upper Arm [employer] : NEURO INTR [id number] 08/15/2024 [id number] Coil Vortex 35 Pltinm 380762 - [id number] Implanted:Qty: 1 on 11/27/2021 by Sterling Cates MD [place] [facility] Right: Upper Arm [employer] : NEURO INTR [id number] 08/15/2024 [id number] / / [id number] Coil Vortex 35 Pltinm 412025 - [id number] Implanted:Qty: 1 on 11/27/2021 by Sterling Cates MD [place] [facility] Right: Upper Arm [employer] : NEURO INTR [id number] 05/16/2024 [id number] / / [id number] Azur 35 Detachable 5mm 11cm - [id number] Implanted:Qty: 1 on 03/19/2022 by Jose Devine MD [place] [facility] Right: Wrist [employer] [id number] 10/18/2025 [id number] / / [id number] Azur 35 Detachable 5mm 11cm - [id number] Implanted:Qty: 1 on 03/19/2022 by Jose Devine MD [place] [facility] Right: Wrist [employer] [id number] 06/19/2026 [id number] / / [id number] Mesh Flat Sheet 10x14 [id number] - [id number] Implanted:Qty: 1 on 12/11/2022 by Eros Dash MD [place] [facility] N/A: Abdomen CR BARD : DAVOL [id number] 06/17/2027 [id number] / / [id number] Defib Madison Mri Furniture Upholsterer-D - [id number] Implanted:Qty: 1 on 10/07/2024 by Arianne Carrizales IV, MD at [facility] [employer] : FANTASMA 07/03/2025 [id number] / [id number] / [id number] Envelope Antibacteral Tyrx - [id number] Implanted:Qty: 1 on 10/07/2024 by Arianne Carrizales IV, MD at [facility] [employer] : CRM [id number] 06/02/2025 [id number] 133 / / [id number] Lead Defib Sprint 6935m-62 - [id number] Implanted:Qty: 1 on 10/07/2024 by Arianne Carrizales IV, MD at [facility] [employer] : [facility] [id number] 08/03/2026 [id number] 62 / [id number] / [id number] documented as of this encounter Advance Directives Documents on File Type Date Recorded 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
--- OUTSIDE RECORDS SUMMARY | 2024-11-04 03:13 | External Medical Summary | Summary of Care ---
Author Name Unknown Organization [facility] Address [address] [place] [address] Phone [phone] Care Team Providers Care Supervisor Graphite Name Role Phone Luis Fernando Rojas MD Primary Care Provider [phone] Reason for Visit * Reason Onset Date Comments [facility]: Maintenance 10/15/2024 Encounter Details Date Type Department Care Team (Late st Contact Info) Description 10/15/2024 Telephone [facility], [place] [facility] [address] [place] [address] [place], MINISTERIO [address] [place] [address] [facility]: Maintenance Allergies Active Allergy Reactions Criticality Noted Date Comments Salvador Inhibitors Other (Please comment),Cough High HyperKalemia documented as of this encounter (statuses as of 10/15/2024) Medications Melatonin 10 MG Tablet Take 12 mg by mouth at bedtime. Active Aspirin 81 MG Oral Tablet ChewableIndicati ons:Type 2 diabetes mellitus 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 dialysis, with long-term current use of insulin (HCC) Take 1 Tab by mouth at bedtime. with food. 90 Tab 3 07/30/202 1 Active FreeStyle Jennifer 2 Sensor Use as directed. Replace every 14 days (supplied through [facility]) 7 Each 3 1 Active CPAP every [...] ([facility]) Use 4 times daily with insulin 400 [...] 3 09/04/2024 8:57 AM EST 4 Active Additional Information Patient not taking.Informant: Patient, Reported on 10/05/2024 XplentyTouch [employer] In Vitro Strip (Glucose Blood) To test blood sugar 4 times daily. 400 Strip 1 04/22/2024 6:47 AM EDT 4 Active XplentyTouch Delica Lancets 33G To test blood sugar 4 times daily. 400 Each 1 04/22/2024 6:47 AM EDT 4 Active XplentyTouch Verio w/Device Kit Use as directed. 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 [id number] 10/17/2023 12/11/19 25 Active documented as of this encounter (statuses as of 10/15/2024) Active Problems Problem Noted Date Diagnosed Date [...] detachments not involving maculae 10/15/2022 MORFIN RESEARCH OTHER*[id number] 01/01/2022 S/P gastric bypass 01/01/[address] [...] as of this encounter (statuses as of 10/15/2024) Resolved Problems Problem Noted Date Diagnosed Date [...] Insulin long-term use 11/19/20182018 Overview (05/20/2019): Duplicate longterm (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 insulin 11/19/2018 10/08/2022 Morbid [...] T-tube placement 04/16/2017 05/29/2017 [employer] Other*[id number] 04/13/2013 08/27/2016 Overview (04/13/2013): Study Title: Genomic Markers for Patients with Cardiovascular Disease Project # [id number] Epic Analyst: Siena Laws MD [phone] Hypertensive heart disease 03/25/2013 1 07/29/2016 Neuropathy, [...] as of this encounter (statuses as of 10/15/2024) Immunizations Name Administration Dates Next Due COVID-19 mRNA, LNP-s, No Pre serve, 2-Dose Series (Moderna) 04/09/2021,09/23/2020,08/19/2020 COVID-19, LNP-s, No Preserve , Espinoza-sucrose, Ages 12+ (Pfizer) 01/08/2022 COVID-19, MRNA-LNP, PF, 30 M CG/0.3 mL, 12 YRS AND ABOVE, IM (PFIZER-Comirnaty) 06/02/2024 HEPATITIS B VACCINE, RECOMB, 20 MCG/ML, ADULT (HEPLISAV-B) 09/05/2021,05/09/2021,04/04/2021,02/18 Hepatitis B, 20+ yrs 09/16/2018,04/14/2018,03/1104/11/2018 Pneumococcal Conjugate Vacci ne, 20-valent ([id number]) 06/22/2024,12/02/2023(Deferred: - pt states she's already received) [...] have concerns for your saf ety? No 10/05/2024 Do you have concerns for you r family's safety? (Household - for ages 0-17 years) Not on file 10/05/2024 Utilities Answer Date Recorded Do you have trouble paying y our heating, water, or electric bill? No 10/05/2024 Is your family able to pay t he heat, water, or electric bill? (Household - for ages 0-17 years) Not on file 10/05/2024 Does your family have access to good internet? (Household - for ages 0-17 years) Not on file 10/05/2024 Employment Status Answer Date Recorded Are you unemployed or without regular income? No 08/14/2023 Does the household have a [facility] source of income? (Household - for [...] 08/14/2023 Transportation Needs Answer Date Record ed Do you have trouble getting a ride to medical visits or work? (Adult - for ages 18 years and over) Not on file 10/05/2024 Does your family have a hard time getting a ride to doctors visits? (Household - for ages 0-17 years) Not on file 10/05/2024 Has lack of transportation k ept you from medical appointments, meetings, work, or from getting things needed for daily living? Check all that apply. No 10/05/2024 Do you (or your family) have trouble finding or paying for a ride (transportation)? (Household - for ages 0-17 years) Not on file 10/05/2024 Housing Stability Answer Date Recorded Do you currently live in a s helter or have no steady place to sleep at night? (Adult - for ages 18 years and over) Not on file 10/05/2024 Do you think you are at risk of becoming homeless? (Adult - for ages 18 years and over) Not on file 10/05/2024 Does your family worry about paying for your home or becoming homeless? (Household - for ages 0-17 years) Not on file 0 10/05/2024 Are you homeless or worried that you might be in the future? No 10/05/2024 Are you (or your family) caleb eless [...] file 08/14/2023 Food Insecurity Answer Date Recorded Worried About Running Out of Food in the Last Ye ar Not on file 10/05/2024 Ran Out of Food in the Last Year Not on file 10/05/2024 Do you need food for this week? No 10/05/2024 Comments No Sex and Gender Information Value [...] Assessment Author No 10/05/2024 3:55 PM Honorio Jonier, RN * Do you have serious difficulty [...] encounter Miscellaneous Notes * Telephone Encounter - Renetta Jackson OSA - 10/15/2024 12:47 PM EDT Request to schedule [facility] visit for pt. Called and spoke to pt. Confirmed Tuesday 10/17 works for pt. Leadership approved weekend visit. documented in this encounter Plan of Treatment Upcoming Encounters Date Type Department Care Team (Late st Contact Info) Description 10/17/2024 11:30 AM EDT [facility], [facility] [address] [address] [facility], Nurse [facility] [address] [address] 10/19/2024 11:00 AM EDT Cardiac Studies Cardiology, [facility] [address] [phone] Movjose manuel, Pacer Clinic [facility] [address] [place] [address] 11/02/2024 9:30 AM EDT Home Visit [facility], [facility] [address] [place] [address] Heidi Garcia, RN [address] [place] [address] 11/25/2024 10:00 AM EDT Imaging Radiology [facility] [address] [place] [phone] 11/30/2024 10:00 AM EDT Nurse Only Nutrition & Weight Management, [facility] [address] [place] [phone] Boni, Nurse Gi Nutrition [facility] 132 [facility] [place] [address] 12/09/2024 12:15 PM EDT Hospital Encounter OR GL, Operating Room, [facility] - 4th Floor [address] [place] [phone] Himanshu Rivero, DO [address] [place] [address] 12/09/2024 12:15 PM EDT - 12/09/2024 12:56 PM EDT Surgery OR [facility], Operating Room, [facility] - 4th Floor [address] [place] [phone] Himanshu Rivero, DO [address] [place] [place] [address] COLONOSCOPY FLEXIBLE PROXIMAL DIAGNOSTIC 12/15/2024 8:30 AM EDT Office Visit Cardiology, [facility] [address] [place] [phone] Josh Guadalupe MD [address] [place] [address] 12/21/2024 10:30 AM EDT Office Visit Gastroenterology, [facility] [address] [place] [phone] Emi Queen CRNP [address] [place] [address] 03/10/2025 1:20 PM EDT Office Visit Dermatology, [address] [phone] Joanne Parks PA-C [address] [place] [address] [place] [address] Scheduled Procedures Name Priority Associated Diagnoses Date/Ti me COLONOSCOPY FLEXIBLE PROXIMAL DIAGNOSTIC History of colonic polyps Diarrhea 12/09/2024 12:15 PM EDT Health Maintenance Due Date Last Done Comments Cologuard 12/23/2003 Fecal Occult Blood Test 12/23/2003 Sigmoidoscopy 12/23/2003 TSH 01/23/2023 01/23/2022, 07/21, 05/18/2021, Additional history exists Depression Monitoring 08/14/2024 08/14/2023 HbA1c 11/05/2024 05/07/2024, 11/19, 07/01/2022, Additional history exists COVID-19 Vaccine (6 - Moderna risk 2023-) 11/30/2024 06/02/2024, 01/08/2022, 04/09/2021, Additional history exists Diabetic [...] encounter Medical Devices Implanted Type Area Water Rights Specialist Device Identifier Shelf Expiration Date Model / Serial / Lot Coil Vortex 35 Pltinm [id number] - [id number] Implanted:Qty: 1 on 11/27/2021 by Sterling Cates MD at [place] [facility] Right: Upper Arm [employer] : NEURO INTR [id number] 08/15/2024 [id number] Coil Vortex 35 Pltinm [id number] - [id number] Implanted:Qty: 1 on 11/27/2021 by Sterling Cates MD at OR [facility] Right: Upper Arm [employer] : NEURO INTR [id number] 08/15/2024 [id number] Coil Vortex 35 Pltinm [id number] - [id number] Implanted:Qty: 1 on 11/27/2021 by Sterling Cates MD at OR [facility] Right: Upper Arm [employer] : NEURO INTR [id number] 08/15/2024 [id number] / / [id number] Coil Vortex 35 Pltinm [id number] - [id number] Implanted:Qty: 1 on 11/27/2021 by Sterling Cates MD at OR [facility] Right: Upper Arm [employer] : NEURO INTR [id number] 05/16/2024 [id number] / / [id number] Azur 35 Detachable 5mm 11cm - [id number] Implanted:Qty: 1 on 03/19/2022 by Jose Devine MD at OR [facility] Right: Wrist [employer] [id number] 10/18/2025 [id number] / / [id number] Azur 35 Detachable 5mm 11cm - [id number] Implanted:Qty: 1 on 03/19/2022 by Jose Devine MD at OR [facility] Right: Wrist [employer] [id number] 06/19/2026 [id number] / / [id number] Mesh Flat Sheet 10x14 [id number] - [id number] Implanted:Qty: 1 on 12/11/2022 by Eros Dash MD at OR [facility] N/A: Abdomen CR BARD : DAVOL [id number] 06/17/2027 [id number] / / [id number] Defib Hubbell Mri Medicine Aide-D - [id number] Implanted:Qty: 1 on 10/07/2024 by Arianne Carrizales IV, MD at [facility] [employer] : FANTASMA 07/03/2025 [id number] / [id number] / [id number] Envelope Antibacteral Tyrx - [id number] Implanted:Qty: 1 on 10/07/2024 by Arianne Carrizales IV, MD at [facility] [employer] : FATNASMA [id number] 06/02/2025 [id number] / / [id number] Lead Defib Sprint 6935m-62 - [id number] Implanted:Qty: 1 on 10/07/2024 by Arianne Carrizales IV, MD at [facility] [employer] : FANTASMA [id number] 08/03/2026 [id number] 62 / [id number] / [id number] documented as of this encounter Advance Directives Documents on File Type Date Recorded Patient Hedge Fund Manager Saranya FIGUEROA 11/13/2020 [facility] VALERIA ORDERS FOR [...] Spouse Health Care Agent Care Teams Supervisor Graphite Relationship Specialty Start Date End Date Luis Fernando Rojas MD [address] [address] PCP - General Family Medicine 09/23/16 documented as of this encounter
--- OUTSIDE RECORDS SUMMARY | 2024-11-04 03:13 | External Medical Summary | Summary of Care ---
Author Name Unknown Organization [facility] Address [address] [place] [address] Phone [phone] Care Team Providers Care Director General Name Role Phone Luis Fernando Rojas MD Primary Care Provider [phone] Reason for Visit * Reason Onset Date Comments [facility]: Maintenance 10/15/2024 Encounter Details Date Type Department Care Team (Late st Contact Info) Description 10/15/2024 Telephone [facility], [facility] [address] [facility] [address] [place] [address] Cierra Ibarra, RETENTION REPRESENTATIVE [address] [facility] [place] [address] [facility]: Maintenance Allergies Active Allergy [...] directed. Replace every 14 days (supplied through [facility]) 7 Each 3 1 Active CPAP every [...] less than 7.0% ([facility]) Use 4 times daily with [...] Patient not taking.Informant: Patient, Reported on 10/05/2024 Digigraph.meTouch Verio In Vitro Strip (Glucose Blood) To test blood sugar 4 times daily. 400 Strip 1 04/22/2024 6:47 AM EDT 4 Active Digigraph.meTouch Delica Lancets 33G To test blood sugar 4 times daily. 400 Each 1 04/22/2024 6:47 AM EDT 4 Active Digigraph.meTouch Verio w/Device Kit Use as directed. 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 10/15/2022 MORFIN RESEARCH OTHER*[id number] 01/01/2022 S/P gastric bypass 01/01/[address] [...] EDT): Gabapentin 600 mg at [facility] Assessment & Plan (05/07/2021 11:11 [...] Insulin long-term use 11/19/20182018 Overview (05/20/2019): Duplicate pull over machine operator (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 insulin 11/19/2018 10/08/2022 [...] T-tube placement 04/16/2017 05/29/2017 [employer] Other*[id number] 04/13/2013 08/27/2016 Overview (04/13/2013): Study Title: Genomic Markers for Patients with Cardiovascular Disease Project # [id number] Machine Adjuster Leader: Siena Laws MD [phone] Hypertensive heart disease 03/25/2013 1 07/29/2016 Neuropathy, [...] yrs 09/16/2018,04/14/2018,03/1104/11/2018 Pneumococcal Conjugate Vacci ne, 20-valent (Tsoomje35) 06/22/2024,12/02/2023(Deferred: - pt states she's already received) [...] No 08/14/2023 Does the household have a [facility] source of income? (Household - for [...] 10/05/2024 3:55 PM Honorio Joiner, RN * Do you have serious difficulty [...] encounter Miscellaneous Notes * Telephone Encounter - Cierra Ibarra LPN - 10/15/2024 12:30 PM EDT Patient d/c from [facility] to home TT to [facility] canvas shrinker to schedule [facility] Friday Ok per Florence Cristina documented in this encounter Plan of Treatment Upcoming Encounters Date Type Department Care Team (Late st Contact Info) Description 10/17/2024 11:30 AM EDT Home Visit [facility], [facility] [address] [place] [address] [facility], Nurse [facility] [address] [place] [address] 10/19/2024 11:00 AM EDT Cardiac Studies Cardiology, [facility] [address] [place] [phone] Movjose manuel Pacer Clinic [facility] [address] [place] [address] 11/02/2024 9:30 AM EDT [facility] Visit [facility], [facility] [address] [place] [address] Heidi Garcia, RN [address] [place] [address] 11/25/2024 10:00 AM EDT Imaging Radiology [facility] [address] [place] [phone] 11/30/2024 10:00 AM EDT Nurse Only Nutrition & Weight Management, [facility] [address] [place] [phone] [place], Nurse Gi Nutrition [facility] [place] [address] 12/09/2024 12:15 PM EDT Hospital Encounter OR [facility], Operating Room, [facility] - 4th Floor [address] [place] [phone] Himanshu Rivero, DO [address] [place] [address] 12/09/2024 12:15 PM EDT - 12/09/2024 12:56 PM EDT Surgery OR [facility], Operating Room, [facility] - 4th Floor [address] [place] [phone] Himanshu Rivero, DO [address] [place] [address] COLONOSCOPY FLEXIBLE PROXIMAL DIAGNOSTIC 12/15/2024 8:30 AM EDT Office Visit Cardiology, [facility] [address] [place] [phone] [facility]upe [facility] [address] [facility] [address] 12/21/2024 10:30 AM EDT Office Visit Gastroenterology, [facility] [address] [place] [phone] Emi Queen CRNP [address] [place] [address] 03/10/2025 1:20 PM EDT Office Visit Dermatology, [address] [place] [phone] Joanne Parks PA-C [address] [place] [address] [place] [phone] Scheduled Procedures Name Priority Associated Diagnoses Date/Ti [...] encounter Medical Devices Implanted Type Area Wire Machine Operator Device Identifier Shelf Expiration Date Model / Serial / Lot Coil Vortex 35 Pltinm [id number] - [id number] Implanted:Qty: 1 on 11/27/2021 by Sterling Cates MD at OR [facility] Right: Upper Arm [employer] : NEURO INTR [id number] 08/15/2024 [id number] Coil Vortex 35 Pltinm [id number] - [id number] Implanted:Qty: 1 on 11/27/2021 by Sterling Cates MD at OR [facility] Right: Upper Arm [employer] : NEURO INTR [id number] 08/15/2024 [id number] Coil Vortex 35 Pltinm [id number] - [id number] Implanted:Qty: 1 on 11/27/2021 by Sterling Cates MD at OR [facility] Right: Upper Arm [employer] : NEURO INTR [id number] 08/15/2024 [id number] / / [id number] Coil Vortex 35 Pltinm [id number] - [id number] Implanted:Qty: 1 on 11/27/2021 by Sterling Cates MD at OR [facility] Right: Upper Arm [employer] : NEURO INTR [id number] 05/16/2024 [id number] / / [id number] Azur 35 Detachable 5mm 11cm - [id number] Implanted:Qty: 1 on 03/19/2022 by Jose Devine MD at OR [facility] Right: Wrist [employer] [id number] 10/18/2025 [id number] / / [id number] Azur 35 Detachable 5mm 11cm - [id number] Implanted:Qty: 1 on 03/19/2022 by Jose Devine MD at OR [facility] Right: Wrist [employer] [id number] 06/19/2026 [id number] / / [id number] Mesh Flat Sheet 10x14 [id number] - [id number] Implanted:Qty: 1 on 12/11/2022 by Eros Dash MD at OR [facility] N/A: Abdomen CR BARD : DAVOL [id number] 06/17/2027 [id number] / / [id number] Defib Bohannon Mri Chief Arson Division-D - [id number] Implanted:Qty: 1 on 10/07/2024 by Arianne Carrizales IV, MD at [facility] [employer] : FANTASMA 07/03/2025 [id number] / [id number] / [id number] Envelope Antibacteral Tyrx - [id number] Implanted:Qty: 1 on 10/07/2024 by Arianne Carrizales IV, MD at [facility] [employer] : F[employer]ASMA [id number] 06/02/2025 [id number] 133 / / [id number] Lead Defib Sprint 6935m-62 - [id number] Implanted:Qty: 1 on 10/07/2024 by Arianne Carrizales IV, MD at [facility] [employer] : F[employer]ASMA [id number] 08/03/2026 6935M 62 / [id number] / [id number] documented as of this encounter Advance Directives Documents on File Type Date Recorded Patient Equipment Mechanic Specialist Saranya FIGUEROA 11/13/2020 [facility] ORDERS FOR LIFE-SUSTAINING TREATMENT * Full Code (Latest Code Status on File) Date Activated Date Inactivated Comments 10/05/2024 4:21 PM 10/14/2024 5:43 PM This order reflects the patients wishes [...] Spouse Health Care Agent Care Teams Director General Relationship Specialty Start Date End Date Luis Fernando Rojas MD [address] [address] PCP - General Family Medicine 09/23/16 documented as of this encounter
--- OUTSIDE RECORDS SUMMARY | 2024-11-04 03:13 | External Medical Summary | Summary of Care ---
Author Name Unknown Organization [facility] Address [address] [place] [address] Phone [phone] Care Team Providers Care Logging Specialist Name Role Phone Luis Fernando Rojas MD Primary Care Provider [phone] Encounter Details Date Type Department Care Team (Late st Contact Info) Description 10/15/2024 Documentation [facility] [address] [place] [address] Bernarda Weeks RN [address] [place] [address] Allergies Active Allergy Reactions Criticality Noted Date [...] than 7.0% ([facility]) Use 4 times daily [...] Patient not taking.Informant: Patient, Reported on 10/05/[address] [employer] [facility] In Vitro Strip (Glucose Blood) To test blood sugar 4 times daily. 400 Strip 1 04/22/2024 6:47 AM EDT [address] [employer] Delica Lancets 33G To test blood sugar [...] (30 minutes before dialysis and another 5mg retirement through dialysis if needed). 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 10/15/2022 [facility] OTHER*[id number] 01/01/2022 S/P gastric bypass 01/01/[address] [...] Insulin long-term use 11/19/20182018 Overview (05/20/2019): Duplicate halfway (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 insulin 11/19/2018 [...] T-tube placement 04/16/2017 05/29/2017 [facility] Other*[id number] 04/13/2013 08/27/2016 Overview (04/13/2013): Study Title: Genomic Markers for Patients with Cardiovascular Disease Project # [id number] Call Center Analyst: Siena Laws MD [phone] Hypertensive heart disease 03/25/2013 1 07/29/2016 Neuropathy, [...] yrs 09/16/2018,04/14/2018,03/1104/11/2018 Pneumococcal Conjugate Vacci ne, 20-valent ([id number]) 06/22/2024,12/02/2023(Deferred: - pt states she's already received) [...] Description 10/17/2024 11:30 AM EDT Home Visit [facility], [facility] [address] [place] [address] [facility], Nurse [facility] [address] [place] [address] 10/19/2024 11:00 AM EDT Cardiac Studies Cardiology, [facility] [address] [place] [phone] [facility] [address] [place] [address] 11/02/2024 9:30 AM EDT Home Visit [facility], [facility] [address] [place] [address] Heidi Garcia RN [address] [place] [address] 11/25/2024 10:00 AM EDT Imaging Radiology [facility] [address] [place] [address] 11/30/2024 10:00 AM EDT Nurse Only Nutrition & Weight Management, [facility] [address] [place] [phone] Boni Nurse Gi Nutrition [facility] [address] [place] [address] 12/09/2024 12:15 PM EDT Hospital Encounter OR [facility], Operating Room, [facility] - 4th Floor [address] [address] [phone] Himanshu Rivero, DO [address] [place] [address] 12/09/2024 12:15 PM EDT - 12/09/2024 12:56 PM EDT Surgery OR [facility], Operating Room, [facility] - 4th Floor [address] [facility] [address] [place] [phone] Himanshu Rivero, DO [address] [place] [address] COLONOSCOPY FLEXIBLE PROXIMAL DIAGNOSTIC 12/15/2024 8:30 AM EDT Office Visit Cardiology, [facility] [address] [place] [phone] Josh Guadalupe MD [address] [place] [address] 12/21/2024 10:30 AM EDT Office Visit Gastroenterology, [facility] [address] [place] [phone] Emi Queen CRNP [address] [place] [address] 03/10/2025 1:20 PM EDT Office Visit Dermatology, [address] [place] [phone] Joanne Parks PA-C [address] [place] [address] [place] [address] Scheduled Procedures Name Priority Associated Diagnoses Date/Ti [...] this encounter Medical Devices Implanted Type Area Architectural Drafting Instructor Device Identifier Shelf Expiration Date Model / Serial / Lot Coil Vortex 35 Pltinm [id number] - [id number] Implanted:Qty: 1 on 11/27/2021 by Sterling Cates MD at OR [facility] Right: Upper Arm [employer] : NEURO INTR [id number] 08/15/2024 [id number] / / [id number] Coil Vortex 35 Pltinm [id number] - [id number] Implanted:Qty: 1 on 11/27/2021 by Sterling Cates MD at OR [facility] Right: Upper Arm [employer] : NEURO INTR [id number] 08/15/2024 [id number] / / [id number] Coil Vortex 35 Pltinm [id number] - [id number] Implanted:Qty: 1 on 11/27/2021 by Sterling Cates MD at OR [facility] Right: Upper Arm [employer] : NEURO INTR [id number] 08/15/2024 [id number] / / [id number] Coil Vortex 35 Pltinm [id number] - [id number] Implanted:Qty: 1 on 11/27/2021 by Sterling Cates MD at OR [facility] Right: Upper Arm [employer] : NEURO INTR [id number] 05/16/2024 [id number] / / [id number] Azur 35 Detachable 5mm 11cm - [id number] Implanted:Qty: 1 on 03/19/2022 by Jose Devine MD at OR [facility] Right: Wrist [employer] [id number] 10/18/2025 [id number] / / [id number] Azur 35 Detachable 5mm 11cm - [id number] Implanted:Qty: 1 on 03/19/2022 by Jose Devine MD at OR [facility] Right: Wrist [employer] [id number] 06/19/2026 [id number] / / [id number] Mesh Flat Sheet 10x14 [id number] - [id number] Implanted:Qty: 1 on 12/11/2022 by Eros Dash MD at OR [facility] N/A: Abdomen CR BARD : DAVOL [id number] 06/17/2027 [id number] / / [id number] Defib Loyall Mri Control Systems Engineer-D - [id number] Implanted:Qty: 1 on 10/07/2024 by Arianne Carrizales IV, MD at CARDIAC LABS [facility] [employer] : FANTASMA 07/03/2025 [id number] / [id number] / [id number] Envelope Antibacteral Tyrx - [id number] Implanted:Qty: 1 on 10/07/2024 by Arianne Carrizales IV, MD at CARDIAC LABS [facility] [employer] : [facility] [id number] 06/02/2025 [id number] / / [id number] Lead Defib Sprint 6935m-62 - [id number] Implanted:Qty: 1 on 10/07/2024 by Arianne Carrizales IV, MD at CARDIAC LABS [facility] [employer] [facility] [id number] 08/03/2026 [id number] / [id number] / [id number] documented as of this encounter Advance Directives Documents on File Type Date Recorded Patient Assistant Therapy Aide Expl anation POL 11/13/2020 POLST NASREEN VALERIA [...] on File Name [facility] Zhen Finley Spouse Health Care Agent Care Teams Logging Specialist Relationship Specialty Start Date End Date Luis Fernando Rojas MD [address] [address] PCP - General Family Medicine 09/23/16 documented as of this encounter
--- OUTSIDE RECORDS SUMMARY | 2024-11-04 03:14 | External Medical Summary | Summary of Care ---
Author Name Unknown Organization [facility] Address [address] [place] [address] Phone [phone] Care Team Providers Care Sports Physiologist Name Role Phone Luis Fernando Rojas MD Primary Care Provider [phone] Reason for Referral * Evaluate & Treat - Unlimited Visits (Within 10 days (routine)) - Authorized Specialty Diagnoses / Procedures Referred By Contact Referred To Contact Cardiovascular Medicine / Cardiology Diagnoses Severe mitral regurgitation Nonrheumatic mitral valve stenosis with insufficiency Ventricular tachycardia, non-sustained (HCC) Haroon iPke MD [address] [place] [id number] Phone: tel: fax: Ulises Stevenson, DO [address] [place] [address] Phone: tel: fax: Referral ID Status Reason Start Date Expiration Date Visits Requested Visits Authorized [id number] Authorized Specialty Services Required 10/14/2024 999 999 Question Answer Referral Priority Within 10 days (routine) Where should this appointment be scheduled? [facility] For which of the following conditions are you referring? Other Condition Not Listed Other Condition: Mitral valve disease, NSVT, CHpEF Comments Discharge Order * Evaluate & Treat - Unlimited Visits (Within 30 days (routine)) - Authorized Specialty Diagnoses / Procedures Referred By Contac t Referred To Contact Cardiovascular Medicine Diagnoses Severe mitral regurgitation Nonrheumatic mitral valve stenosis with insufficiency Haroon Pike MD [address] [place] [address] Phone: tel: fax: Vivienne Quintana MD [address] [place] [address] Phone: tel:[phone] fax:[phone] Referral ID Status Reason Start Date Expiration Date Visits Requested Visits Authorized [id number] Authorized Specialty Services Required 10/14/2024 999 999 Question Answer Referral Priority Within 30 days (routine) Where should this appointment be scheduled? [facility] Comments Discharge Order Reason for Visit * Auth/Cert Specialty Diagnoses / Procedures Referred By Mikey t Referred To Contact Diagnoses V-tach (HCC) VTAC, syncope Honorio Alvarez DO [address] [place] [address] Phone: tel: fax: Admissions, [facility] [address] [place] [address] Referral ID Status Reason Start Date Expiration Date Visits Re quested Visits Authorized [id number] Encounter Details Date Type Department Care Team (Latest Contact Info) Description 10/05/2024 3:42 PM EDT - 10/14/2024 1:38 PM EDT Hospital Encounter [facility] 8, [facility] Advanced Medicine 8th Floor [address] [place] [address] Honorio Alvarez DO [address] [place] [address] Kaden Arana MD [address] [place] [address] Various: EKG,KRAVS,NOXIMG Discharge Disposition: Home - Self Care Allergies Active Allergy Reactions Criticality Noted Date Comments Chidi Inhibitors Other (Please comment),Cough High HyperKalemia documented [...] (supplied through DME) 7 Each 3 05/17/20 Active CPAP every [...] 5 8:57 AM EST 03/18/20 24 Active Additional Information Patient not taking.Informant: Patient, Reported on 10/05/2024 [employer] In Vitro Strip (Glucose Blood) To test blood sugar 4 times daily. 400 Strip 1 4 6:47 AM EDT 04/20/20 24 Active [employer] Delica Lancets 33G To test blood sugar 4 times daily. 400 Each 1 4 6:47 AM EDT 04/20/20 24 Active [employer] w/Device Kit Use as directed. 1 Kit [...] [facility]) Inject 10 Units under the skin in the morning. 15 mL 4 08/26/19 25 Active Insulin Lispro (1 Unit Dial) 100 UNIT/ML Subcutaneous Solution Pen-injector (HumaLOG KwikPen)Indicat ions:Type 2 diabetes mellitus with hemoglobin A1c goal of less than 7.0% ([facility]) Inject 12 units with breakfast, 12 units with lunch and 16 units with supper. Max dose of 40 units per day 45 mL 4 10/05/19 25 Active Midodrine HCl 5 MG Oral Tablet (Proamatine) Take 1 Tablet by mouth daily as needed for Other (30 minutes before dialysis and another 5mg shelter through dialysis if needed). 30 Tablet 3 10/11/19 25 Active Carvedilol 12.5 MG Oral Tablet (Coreg)Indicati ons:HTN, goal below 140/90 Take 1 Tablet by mouth in the morning and 1 Tablet before bedtime. 180 Tablet 4 5 8:06 AM EST 03/20/20 24 025 Discontinued Benzonatate 100 MG Oral Capsule (Zeus De Los Santos) Take 1 Capsule by mouth 3 times a day as needed for Cough. Do not cut, crush, or chew. 50 Capsule 1 07/15/20 24 025 Discontinued amLODIPine Besylate 5 MG Oral Tablet (Norvasc) TAKE ONE TABLET BY MOUTH EVERY DAY IN THE MORNING 90 Tablet 1 5 8:06 AM EST 08/05/19 25 025 Discontinued traMADol HCl 50 MG Oral Tablet (Ultram) Take 1 Tablet by mouth every 4 hours as needed for Pain, Severe. 025 Discontinued Losartan Potassium 50 MG Oral Tablet (Cozaar)Indicat ions:End stage renal disease on dialysis (HCC),HTN, goal below 140/90 Take 1 Tablet by mouth in the morning. 90 Tablet 3 09/21/19 25 025 Discontinued oxyCODONE HCl 5 MG Oral Tablet (Oxy IR) Take 1 Tablet by mouth every 6 hours as needed for Pain, Moderate or Pain, Severe for up to 5 doses. 5 Tablet 10/11/19 25 025 Discontinued Lidocaine 5 % External Patch (Lidoderm) Place 1 Patch over 12 hours topically on the skin daily. 30 Patch 10/11/19 025 Discontinued Carvedilol 3.125 MG Oral Tablet (Coreg) Take 1 Tablet by mouth 2 times a day with morning and evening meals. 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 Required 1 unit packed red blood cell transfusion. Ppi switched to omeprazole 40 mg twice daily for 8 weeks followed by taper. -omeprazole 40 mg twice daily until Mitch 3rd then once daily -needs close follow-up with [...] up the stairs") Chronic Medication Regimen: Beta Griselda Therapy: Carvedilol CHIDI Inhibitor/ARB Therapy: Other: none on hd Diuretic [...] the stairs") Chronic Medication Regimen: o Beta Griselda Therapy: Carvedilol o CHIDI Inhibitor/ARB Therapy: Other: none on hd o [...] syndrome) 11/13/2018 PAT (paroxysmal atrial tachycardia) 11/13/2018 CHIDI inhibitor intolerance 05/24/2018 Assessment & Plan (05/07/2021 [...] 8:45 AM EDT): Gabapentin 600 mg at [facility] Assessment & Plan (05/07/2021 [...] T-tube placement 04/16/2017 05/29/2017 [employer] Other*[id number] 04/13/2013 08/27/2016 Overview (04/13/2013): Study Title: Genomic Markers for Patients with Cardiovascular Disease Project # [id number] [employer] Developer: Siena Laws MD [phone] Hypertensive heart disease 03/25/2013 1 07/29/2016 Neuropathy, [...] yrs 09/16/2018,04/14/2018,03/1104/11/2018 Pneumococcal Conjugate Vacci ne, 20-valent ([id number]) 06/22/2024,12/02/2023(Deferred: - pt states she's already received) [...] Sign Reading Time Taken Comments Blood Pressure 127/68 10/14/2024 7:44 AM EDT Pulse 60 10/14/2024 12:00 PM EDT Temperature 36.8 °C (98.2 °F) 10/14/2024 7:44 AM ED T Respiratory Rate 16 10/14/2024 7:44 AM EDT Oxygen Saturation 91% 10/14/2024 7:59 AM EDT Inhaled Oxygen Concentration - - Weight 105.4 kg (232 lb 5.8 oz) 10/14/2024 5:06 AM EDT Height 162.6 cm (5' 4.02") 10/05/2024 3:55 PM ED T Body Mass Index 39.87 10/05/2024 3:55 PM EDT documented in this [...] Honorio Joiner RN documented in this encounter Discharge Summaries * Haroon Pike MD - 10/14/2024 11:55 AM EDT [facility] [address] Admission Date: 10/05/2024 Discharge Date: 10/14/2024 RECOMMENDATIONS FOR NEXT PROVIDERS: - General Cardiology outpatient follow-up in 1 week was requested for CAD, mitral valve disease, CHFpEF. - Valve Clinic follow-up was requested in 30 days to discuss transcatheter treatment options - Patient is high risk for open heart surgery but if she fails medical therapy, can be re-evaluatedfor high risk surgical MVR. Consider Cardiac Surgery consult if progression of symptoms. MEDICATION CHANGES: START: - Midodrine 5 mg. Take 1 tablet by mouth as needed 30 min before dialysis and another tablet shelter through dialysis if needed. STOP: - Carvedilol 12.5 mg BID. The medication was stopped due to low blood pressure and controlled heartrate. - Amlodipine 5 mg. The medication was stopped due to low blood pressure. - Losartan 50 mg. Patient was not taking this medication. - Tramadol 50 mg. Patient was not taking this medication. - Benzonatate 100 mg. Patient was not taking this medication. DISCHARGE DIAGNOSES: Active Hospital Problems Diagnosis *Principal Diagnosis - Ventricular tachycardia, non-sustained ([facility]) Severe mitral regurgitation Chronic hyponatremia Hyperphosphatemia Mitral stenosis with insufficiency Arterial hypotension Anemia of renal disease End stage renal disease on dialysis ([facility]) Chronic diastolic heart failure ([facility]) Type 2 diabetes mellitus with hemoglobin A1c goal of less than 7.0% ([facility]) Resolved Hospital Problems Diagnosis Date Resolved Hyperkalemia 10/12/2024 Attending Provider: Kaden Arana MD CONDITION ON DISCHARGE: stable DISPOSITION ON DISCHARGE: home FOLLOW-UP: Future Appointments Appt Date/Time Provider Department 10/19/2024 11:00 AM [facility] Cardiology, [facility] 11/02/2024 9:30 AM [facility] 11/25/2024 10:[address] Radiology [facility] 11/30/2024 10:00 AM Plata, Nurse Gi Nutrition [facility] Nutrition & Weight Management, [facility] 12/21/2024 10:30 AM Emi Queen CRNP Gastroenterology, [facility] 03/10/2025 1:20 PM [facility] testing already scheduled: None Outpatient testing that needs to be arranged: None Inpatient test results pending: None MEDICATIONS ON DISCHARGE: MEDICATION UPDATES AT DISCHARGE START taking these medications INSTRUCTIONS midodrine 5 MG Tablet Commonly known as: Proamatine Take 1 Tablet by mouth daily as needed for Other (30 minutes before dialysis and another 5mg shelter through dialysis if needed). CONTINUE taking these medications INSTRUCTIONS Acetaminophen 325 MG Tablet Commonly known as: Tylenol Take 2 Tablets by mouth every 6 hours as needed. Albuterol Sulfate 0.63 MG/3ML nebulizer solution Commonly known as: Accuneb Inhale 1 Vial via nebulizer every 6 hours as needed for Wheezing. aspirin 81 MG chewable tablet Take 1 Tab by mouth at bedtime. with food. atorvaSTATin 40 MG Tablet Commonly known as: Lipitor Take 1 Tablet by mouth in the morning. BD Pen Needle Mini U/F 31G X 5 MM Generic drug: Insulin Pen Needle Use 4 times daily with insulin Biotin 1000 MCG Tablet Take 1 Tablet by mouth in the morning and 1 Tablet before bedtime. calcium acetate (Phos Binder) 667 MG Caps Capsule Commonly known as: Phoslo TAKE THREE CAPSULES BY MOUTH WITH EACH MEAL AND TWO CAPSULES WITH SNACKS calcium CITRATE 315 mg -vit D 5 mcg (200 units) 315-200 MG-UNIT per tablet Take 1 Tablet by mouth in the morning. 600 mg of calcium twice daily + 20 mcg of vitamin d twice daily. childrens multivitamin Chew Take 1 Tablet by mouth in the morning and 1 Tablet before bedtime. citalopram 20 MG Tablet Commonly known as: CeleXA Take 1 Tablet by mouth in the morning. Colestipol 1 g Tablet Commonly known as: Colestid take 2 tablets by mouth at noon daily if needed for diarrhea CPAP every night at bedtime. 12 Diclofenac 1 % Gel Commonly known as: Voltaren Apply topically to affected area 3 times a day as needed for Pain. FreeStyle Jennifer [address] [facility] Use as directed. Replace every 14 days (supplied through [facility]) Gabapentin 300 MG Capsule Commonly known as: Neurontin Take 1 Capsule by mouth at bedtime. Follow up with your primary care provider for further management. Insulin Glargine Solostar 100 UNIT/ML Sopn Commonly known as: Basaglar KwikPen Inject 10 Units under the skin in the morning. Insulin Lispro (1 Unit Dial) 100 UNIT/ML Sopn Commonly known as: HumaLOG KwikPen Inject 12 units with breakfast, 12 units with lunch and 16 units with supper. Max dose of 40 units per day levothyroxine 100 MCG Tablet Commonly known as: Levoxyl TAKE 1 TABLET BY MOUTH DAILY AT LEAST 30 MINUTES PRIOR TO FIRST MEAL OF THE DAY OR OTHER MEDICATIONS Melatonin 10 MG Tablet Take 12 mg by mouth at bedtime. Nitroglycerin 0.4 MG Subl Commonly known as: Nitrostat Place under the tongue 1 Tablet as needed for Pain, Chest. May repeat 3 times. If chest pain continues, call 911. NPMveriCAR Plus [id number] [facility] To test blood sugar 4 times daily. NPMToMimub Verio Flex System w/Device Kit Use as directed. OneTouch Verio Strp Generic drug: Glucose Blood To test blood sugar 4 times daily. ProRenal + D Tabs Take by mouth 1 Tablet daily . Vitamin D 125 MCG (5000 UT) Caps Take 1 Capsule by mouth every morning. STOP taking these medications amLODIPine 5 MG Tablet Commonly known as: Norvasc Benzonatate 100 MG Capsule Commonly known as: Tesisha De Los Santos Carvedilol 12.5 MG Tablet Commonly known as: Coreg losartan 50 MG Tablet Commonly known as: Cozaar traMADol 50 MG Tablet Commonly known as: Ultram CONTINUE taking these medications but follow up with your Primary Care Physician (PCP). INSTRUCTIONS omeprazole 20 MG Cpdr Commonly known as: PriLOSEC Take 1 Capsule by mouth in the morning. ALLERGIES: Chidi inhibitors INSTRUCTIONS: Activity: as tolerated Diet: calorie controlled diet, carbohydrate controlled diet, heart healthy diet, renal diet Code Status: Full Code [facility] patient: no ADMISSION HISTORY & PHYSICAL EXAM (focused): Patient reports 5 or 6 syncopal episodes over the last several weeks. The episodes occurred while she was sitting. She will occasionally feel generally unwell in the seconds prior to losing consciousness and she says she will be unconscious for anywhere from 1-3 minutes. She usually feels "off" for approximately 10 minutes following these episodes. She reports nausea after these episodes. Her has witnessed these episodes and reportedly denies any convulsions or incontinence. She denies any chest pain or shortness of breath prior to the episodes. She denies any exertional chest pain recently, though does endorse exertional shortness of breath. She also reports about a week of dry cough, nasal congestion and sore throat. She presented to [facility] after another episode of syncope. Interrogation of her pacemaker showed she was having several episodes of nonsustained polymorphic ventricular tachycardia lasting at most 3 seconds. She was transferred to [facility] for further management. Upon arrival to [facility], patient reports feeling well. She currently denies any chest pain, shortness of breath, lightheadedness, nausea or vomiting. BP: 132 mmHg/52 mmHg (10/05/24 1630) Pulse: 62 (10/05/24 1630) Resp: 19 (10/05/24 1630) Temp: 37.11 C (10/05/24 1600) Temp Summary: Temp Min: 37.1 °C (98.8 °F) Max: 37.1 °C (98.8 °F) SpO2: 100 % (10/05/24 1630) O2 flow rate: 2 L/MIN (10/05/24 1600) Supplemental O2 Delivery: Nasal Cannula (10/05/24 1600) General: no acute distress, appears comfortable lying in bed Head: atraumatic, normocephalic Cardio: regular rate and rhythm. Normal S1/S2. Respiratory: no signs of respiratory distress. Clear to auscultation bilaterally. No rales, rhonchior wheezes Abdomen: soft, nondistended. Mild tenderness to palpation of the LLQ Lower Extremities: no edema or erythema. Skin: warm, dry, intact. Nailbeds pink with no cyanosis Neuro: Alert and oriented x3, no focal deficits appreciated Psych: normal affect, appropriate HOSPITAL COURSE (focused): Patient initially presented to [facility] after multiple syncopal episodes. Interrogation of her pacemaker showed multiple instances of non-sustained polymorphic ventricular tachycardia. She was transferred to [facility] for further management. She was treated with amiodarone infusion. She underwent cardiac catheterization on 10/06 which showed moderate non-obstructive CAD with a 50% LAD lesion. There were no culprit lesions identified to explain her VT. EP evaluated patient and placed an ICD 10/07/24. She tolerated the procedure well. Her course was complicated by acute hypoxic respiratory failure due to flash pulmonary edema in setting of severe MR. She was given high doses of lasix without much urine output due to her ESRD. She underwent HD session 10/11 with around 3L removed.MOUNA was performed to better characterize her mitral valve which showed severe MR and moderate MS. She deemed not a good candidate for JACQUE procedure. Cardiac Surgery evaluated the patient and concluded that patient is a high risk for open heart surgery but if she fails medical therapy, can be re-bernadette luated for high risk surgical MVR. She underwent nocturnal and ambulatory oximetry testing which showed normal saturation. Physical exam on the day of discharge: General: Well appearing, in no acute distress HEENT: Atraumatic, normocephalic, non-icteric sclera, moist mucous membranes Neurologic: Alert and oriented, no focal deficits, following commands, appropriate responses to questions, CN grossly intact, power equal and normal in UL and LL bilaterally Neck: No JVD, no submental, submandibular, or cervical lymphadenopathy CVS: RRR, systolic murmur at apex, no rubs,\\ or gallops Respiratory: Normal effort, breath sounds normal and equal bilaterally, no crackles, no rales Abdominal: Soft, nondistended, nontender, normoactive bowel sounds Extremities: No pitting edema, peripheral pulses are regular and equal Skin: Warm, dry, intact Operations & Procedures: 10/06/24: Cardiac Catheterization Moderate non-obstructive CAD Prox LAD 50% --> FFR 0.83 (not hemodynamically significant) No significant CAD elsewhere LVEDP 17 mmHg 10/07/24: ICD placement 10/11/24: Attempted MOUNA (aborted due to hypotension and hypoxemia) 10/12/2024: MOUNA SELECTED RESULTS: Last recorded weight: Weight: 105.4 kg (232 lb 5.8 oz) (10/14/24 0506) Laboratory: CHEMISTRY: BUN, Creatinine, GFR Estimated, Sodium, Potassium, Chloride, Carbon Dioxide, Glucose, Calcium (see below for most recent value): Lab Results Component Value Date/Time BUN 24 (H) 10/14/2024 04:16 AM BUN 41 (H) 04/26/2020 09:34 AM CREAT 4.3 (H) 10/14/2024 04:16 AM CREAT 3.0 (A) 06/13/2021 12:00 AM CREAT 1.7 (H) 04/26/2020 09:34 AM GFRESTIMATED 32.9 (L) 04/26/2020 09:34 AM NA 132 (L) 10/14/2024 04:16 AM NA 140 04/26/2020 09:34 AM POTASSIUM 4.6 10/14/2024 04:16 AM POTASSIUM 3.9 12/11/2022 12:43 PM POTASSIUM 3.9 06/13/2021 12:00 AM POTASSIUM 4.4 04/26/2020 09:34 AM CL 93 (L) 10/14/2024 04:16 AM CL 102 04/26/2020 09:34 AM CO2 24 10/14/2024 04:16 AM CO2 27 04/26/2020 09:34 AM CA 9.3 10/14/2024 04:16 AM CA 9.5 04/26/2020 09:34 AM CREATININE: Creatinine (see below for last three most recent values): Lab Results Component Value Date/Time CREAT 4.3 (H) 10/14/2024 04:16 AM CREAT 6.6 (H) 10/13/2024 04:29 AM CREAT 5.3 (H) 10/12/2024 04:45 AM CREAT 3.0 (A) 06/13/2021 12:00 AM CREAT 1.71 (A) 11/02/2020 12:00 AM CREAT 1.7 (H) 04/26/2020 09:34 AM CREAT 1.6 (H) 04/06/2020 11:45 AM CREAT 1.8 (H) 03/17/2020 09:21 AM HEMOGLOBIN: Hgb (see below for last three most recent values): Lab Results Component Value Date/Time HGB 7.9 (L) 10/14/2024 04:16 AM HGB 8.2 (L) 10/13/2024 04:29 AM HGB 8.8 (L) 10/12/2024 04:45 AM HGB 13.9 06/13/2021 12:00 AM HGB 12.2 11/02/2020 12:00 AM HGB 11.3 (L) 03/17/2020 09:21 AM HGB 12.2 04/26/2019 12:14 PM HGB 10.6 (L) 12/03/2018 11:53 AM HEMOGLOBIN A1C: (see below for most recent value): Lab Results Component Value Date/Time HGBA1C 7.8 (H) 12/12/2022 07:18 AM HGBA1C 7.6 (H) 04/26/2020 09:24 AM LIVER FUNCTION TEST: Albumin, AST, ASTCMC (resulted at [facility] lab), Alkaline Phosphatase, ALT, ALTCMC (resulted at [facility] lab), Bilirubin Total, TBilCMC (resulted at [facility] lab), Protein - (see below for most recent value of each component): Lab Results Component Value Date/Time AST 26 10/12/2024 04:45 AM AST 33 03/17/2020 09:21 AM ALKP 112 10/12/2024 04:45 AM ALKP 122 03/17/2020 09:21 AM ALT <5 (L) 10/12/2024 04:45 AM ALT 57 (H) 03/17/2020 09:21 AM TBIL 0.3 10/12/2024 04:45 AM TBIL 0.5 03/17/2020 09:21 AM PROT 6.1 10/12/2024 04:45 AM PROT 6.6 03/17/2020 09:21 AM Complications: none CONSULTS ORDERED: NEPHROLOGY CONSULT IP ELECTROPHYSIOLOGY CONSULT IP CARDIAC SURGERY CONSULT IP REFERRING PHYSICIAN: REF: DONNA WILSON PRIMARY CARE PROVIDER: PCP: Luis Fernando Rojas MD [address] [facility] [address] [place] [phone] (office) [phone] (fax) Note: To contact a physician responsible for this patient’s hospital care, please call [employer] [phone]. Cosigned by Kaden Arana MD at 10/14/2024 4:36 PM EDT Associated attestation - Kaden Arana MD - 10/14/2024 4:36 PM EDT I saw and evaluated the patient today. I have reviewed the resident/fellow physician note and agree. documented in this encounter Discharge Instructions * Discharge Instr - AVS* Haroon Pike MD - 10/10/2024 2:11 PM EDT Discharge Date: 10/14/[address] Barlow of the Department of Cardiology at [phone] during business hours for any questions or test results. For after-hours emergencies call [phone] and have your doctor paged. Scheduling services is available between the hours of 8:00 am and 9:00 pm by calling . For routine questions, your [facility] Cardiology Team prefers the use of [employer]. [employer] is an online internet tool to help you meet your health care needs quickly by providing a secure, confidential way to view your health records and communicate with your [facility] Cardiology Team. To sign up for [employer] go to [email or web address], "Click" [place] [employer] on the right side of the screen and complete the user registration information. The information below provides you with the instructions and the list of medications you need to betaking following discharge from the hospital. If you have any questions, please ask before leaving.Please carry this letter with you when you see your doctor in the clinic. If you have questions, you can reach us at the numbers above. Brief summary of your inpatient care: You were admitted after fainting from an abnormal rhythm called polymorphic ventricular tachycardia. You were found to have lot of fluid on your body as well as a calcified mitral valve. You underwent evaluation with cardiac catheterization which did not show significant blockages in your arteries of your heart that could explain your symptoms. Our manager proposal evaluated you and recommended implantation of the ICD in your chest. You underwent this procedure without any complications. Your course was complicated by shortness of breath and the need for supplemental oxygen. This was due to too much fluid in your lungs. You had a dialysis session Friday and the fluid was removed from your body. We did a transesophageal echocardiogram to better lookat your mitral valve which showed severe leakage and narrow valve. Given this findings, unfortunately, you are not a good candidate for transcutaneous valve repair but we will request an appointment in outpatient Valve Clinic to discuss possible options. Our Cardiac Surgery team evaluated you and they concluded that you are very high risk for surgery but the operation could be considered if your symptoms are not controlled or getting worse. You underwent overnight and ambulatory oxygen testing which showed that you do not need supplemental oxygen at home. Your primary diagnosis at discharge was polymorphic ventricular tachycardia, mitral valve regurgitation and narrowing Your doctors during this hospitalization included: Dr. Arana Inpatient test results pending: None Operations & Procedures: Cardiac catheterization, ICD (implantable cardioverter-defibrillator),MOUNA Complications: none significant Advance Directive Documented: Advance Directive Does the Patient have an Advance Directive? No Please START taking the following medications - Midodrine 5 mg. Take 1 tablet by mouth as needed 30 min before dialysis and another tablet shelter through dialysis if needed. Please STOP taking the following medications - Carvedilol 12.5 mg BID. This was stopped due to low blood pressure. - Amlodipine 5 mg. This was stopped due to low blood pressure. - Losartan 50 mg. You were not taking this medication. - Tramadol 50 mg. You were not taking this medication. - Benzonatate 100 mg. You were not taking this medication. Please continue taking all other medications as previously prescribed. Diet: Previous diet Activity: no strenuous activity for 3 weeks. Do not lift your arms over your shoulders to avoid complications with the ICD. Laboratory tests: none Please call your primary care physician (Luis Fernnado Rojas MD) for an appointment within 3 day(s). Please follow up with your gear grinder in the next 1 week. An appointment was requested but in the event you do not receive a call to schedule it, [facility] to have [facility] scheduled. An appointment was requested in Valve Special Instructions (medication changes below were made to avoid low blood pressure and to controlyour pain after ICD placement) ELECTROPHYSIOLOGY - DEFIBRILLATOR DISCHARGE INSTRUCTIONS New Implant or Revision You may shower the day after your procedure. Please do not let the water hit the bandage directly. Your incision line was closed with sutures (Dr. Nguyen also uses steri-strips). The sutures are underthe skin and will dissolve. If used, the steri-strips will fall off within a couple of weeks. You will go home with a brown bandage over your incision line. Please remove it in one week. The date to remove the bandage is also written on it. Do not apply any creams, lotions, or ointments to the incision until the wound is completely healed. Keep a careful eye on your incision line. If you have any unusual pain, swelling or drainage from the incision, please call the [facility]. You may use extra strength Tylenol every 4-6 hours for incisional pain. Do not use Tylenol if you are allergic to the medication. Do not lift more than 15 pounds for 3 weeks. Do not lift your elbow past your shoulder for [address] for 1 week. If you have driving restrictions related to other issues, please adhere tothose restrictions. The company that manufactured your defibrillator is [employer]. A temporary identification card is provided with your booklet of information. Please carry this with you. You will receive a permanent identification card from the company in about 3-12 weeks. If you get one shock from your defibrillator and you are NOT experiencing any dizziness, chest painor shortness of breath, please call the [facility]. If you get 2 or more shocks in a 24-hour period, or if you are not feeling well after one shock, CALL 911 and go to the emergency room. Do not drive yourself to the ER. If you have any questions about your defibrillator please call the [facility]. The [facility] phone number is [phone]. The Clinic is open 8:00 to 4:30 Fridaythrough Friday. The 24-hour number for after hours, weekends and holidays is [phone]. Please ask for the Electrophysiology Attending Physician on-call. Cardiovascular RISK FACTOR control YOUR RISK FACTOR TREATMENT GOALS: Controlling the factors that cause arteries to form blockages will reduce your chance of having new blockages. Work with your health care providers to control your risk factors. If you have trouble reaching these goals then ask your health care provider to work with you further until they are controlled. Diabetes - In diabetics, hemoglobin A1C is a measure of the average blood sugar over the past 3 months. The goal is less than 7.0. Your result is: 7.8 Hypertension - Goal is less than 120/80. Your blood pressure is 101/77. High cholesterol LDL cholesterol (bad cholesterol) - goal is less than 70 mg/dl. HDL cholesterol (good cholesterol) - goal is greater than 40 mg/dl in men and 50 mg/dl in women. Triglycerides (other blood fats that are especially elevated in diabetics and pre-diabetics) - goal is less than 150 mg/dl. Your Lipid Panel Results are: Results for orders placed or performed in visit on 07/01/22 LIPID PANEL WITHOUT DIRECT LDL Result Value Ref Range Triglycerides 124 <=174 mg/dL Cholesterol 92 <200 mg/dL HDL Cholesterol 51 >49 mg/dL Non-HDL Cholesterol 41 <=159 mg/dL LDL Cholesterol 16 <=129 mg/dL Tobacco - Tobacco is poison to your arteries. It will cause blockages. Continuing to smoke tobacco may lead to heart attacks, strokes, or leg amputation. You should avoid tobacco. Your goal is to notsmoke at all. Talk with your primary care provider about counseling and medications to help you stop smoking. Exercise - The [employer] recommends walking 30 minutes a day most days of the week; if you have to lose weight you should walk 60-90 minutes a day. Remember that if you develop chestpain, you should stop what you are doing. Do not continue to exercise if you have chest pain. See your special activity instructions above. [place] weight - Your BMI (a measure of ideal body weight) is Body mass index is 39.49 kg/m².. Your BMI should be less than 25. Your waist size also predicts risk of heart attack: a woman's waist should be less than 35 inches and a man's waist less than 40. Maintaining your ideal body weight will help your heart, reduce blood pressure, blood sugar, and cholesterol, improve or help prevent diabetes, and improve or help prevent congestive heart failure. documented in this encounter Progress Notes * Josh Duvall MD - 10/14/2024 1:38 PM EDT PROGRESS NOTE - Nephrology [facility] [place]-[address] [address] Patient Name: Candi Finley Date: 10/14/2024 Time: 2:38 PM Location: [facility] H879/A Subjective : Patient seen at bedside, planned for discharge today Current medication list: reviewed Objective : Most Recent Vital Signs: BP: 127 mmHg/68 mmHg (10/14/24743) Pulse: 60 (10/14/24 1200) Resp: 16 (10/14/24743) Temp: 36.78 C (10/14/2444) Temp Summary: Temp Min: 36 °C (96.8 °F) Max: 37.5 °C (99.5 °F) SpO2: 91 % (10/14/24 0759) O2 flow rate: 1 L/MIN (10/13/24 2327) Supplemental O2 Delivery: Room Air, None (10/14/24 0759) Intake/Output Summary (Last 24 hours) at 10/14/2024 1438 Last data filed at 10/13/2024 1800 Gross per 24 hour Intake 360 ml Output -- Net 360 ml PHYSICAL EXAMINATION: General: No acute distress Eye: anicteric sclera HENT: Normocephalic, atraumatic , oral mucosa moist Neck: Supple Respiratory: Lungs are clear to auscultation Cardiovascular: S1S2 normal Extremities: no edema b/l Gastrointestinal: Soft, Non-tender Musculoskeletal: Normal range of motion Integumentary: Warm, Dry, Curlew Neurologic: Alert & Oriented Psychiatric: Cooperative, Non-suicidal LABS: reviewed Lab results within last 7 days (see chart for full results) Units 10/14/246 10/13/2442810/12/245 SODIUM mmol/L 132* 132* 134* POTASSIUM mmol/L 4.6 5.0 5.1 CHLORIDE mmol/L 93* 94* 95* CO2 mmol/L 24 23 24 BUN mg/dL 24* 38* 29* CREATININE mg/dL 4.3* 6.6* 5.3* Lab results within last 7 days (see chart for full results) Units 10/14/24 0416 10/13/24 0429 10/12/24 0445 10/11/24 0620 HGB g/dL 7.9* 8.2* 8.8* 8.8* PERTINENT IMAGING INFO: Prior imaging reviewed Assessment and plan ESRD on iHD MWF via RUE AVF at [place], DM type 2, proliferative diabetic retinopathy, HTN, HFpEF, MINISTERIO on CPAP, endometrial cancer presented with syncope, non-sustained polymorphic VT, s/p cardiac cath 10/06, 50% LAD lesion, s/p AICD placement # End-stage renal disease on hemodialysis # Access # Hypertension # Secondary hyperparathyroidism/hyperphosphatemia # Anemia # Medication dosing/toxicity - dose medications for eGFR < 10 mL/min Continue with Friday dialysis Midodrine with dialysis - Renal dialysis diet - continue with phosphorus binders - transfuse per primary team parameters (Hb < 7.0) Cardiology notes reviewed, needs close follow-up with Cardiology, valve in clinic. Medication adjustment noted, Coreg, amlodipine, losartan held We appreciate the opportunity of participating in Ms. Finley's care * Haroon Pike MD - 10/13/2024 4:40 PM EDT PROGRESS NOTE - Cardiology [facility] [place]-[address] [address] Name: Candi Filney Location: [facility] H879/A Date: 10/13/2024 Time: 4:40 PM Date of admission: 10/05/2024 Hospital length of stay: 8 days Subjective Summary: Candi Finley is a 63 year-old female with PMH of ESRD on iHD MWF, sick sinus syndrome, tachy-andrew syndrome s/p dual chamber pacemaker in 2019, CHFpEF, R-en-Y gastric bypass in 2017, MINISTERIO on CPAP, ID DM type 2, diabetic neuropathy, depression, HTN, recent rhinivirus infection presents for episodes of syncope in the setting of non-sustained polymorphic VT. Overnight Events: No acute events overnight. Subjective: Patient seen and examined at bedside. Patient denies SOB, chest pain, abdominal pain, dysuria, joint pain, muscle pain and weakness. Reports that breathing got better. Objective CONSTITUTIONAL DATA / OBJECTIVE: Vital Signs (Most Recent): Blood Pressure: 104/43 mmHg Last 12H: Most Recent Systolic BP Av.1 mmHg Min: 90 mmHg Max: 127 mmHg Pulse: 77 Last 12H: Pulse Av Min: 57 Max: 77 Temperature: 37.2 °C (98.9 °F) Last 12H: Most Recent Temperature Av.7 C Min: 36.39 C Max: 37.17 C Respiratory Rate: 16 O2 Saturation: 98 % Vital Signs (Last 24 Hours): Pulse Av.8 Min: 57 Max: 80 No data recorded Most Recent Systolic BP Av.8 mmHg Min: 90 mmHg Max: 127 mmHg Most Recent Diastolic BP Av.2 mmHg Min: 33 mmHg Max: 71 mmHg Resp Av.3 Min: 15 Max: 18 Most Recent Temperature Av.7 C Min: 36.39 C Max: 37.17 C SpO2 Av.5 % Min: 95 % Max: 100 % Intake & Output Summary (Last 24 hours): Intake/Output Summary (Last 24 hours) at 10/13/2024 1640 Last data filed at 10/13/2024 1230 Gross per 24 hour Intake -- Output 2000 ml Net -2000 ml Net IO Since Admission: 1,223.41 mL [10/11/24 1435] Height & Weight: Height: 162.6 cm (5' 4.02") (10/05/24 1555) Weight: 106.6 kg (235 lb 0.2 oz) (10/13/24 0529) Weight change: 2.2 kg (4 lb 13.6 oz) Body mass index is 40.32 kg/m². Physical Examination: General: Patient in no apparent distress HEENT: normocephalic, atraumatic Heart: regular rate and rhythm; S1 and S2 present; no murmurs, rubs or gallops. Pulmonary: Lungs clear to auscultation bilaterally; no wheezes, rhonchi or crackles. Abdomen: Soft, non-tender, non-distended. Normal bowel sounds and no rebound or guarding. MSK: Patient able to ambulate; Gross motor function intact Extremities: No pitting edema present at lower extremity bilaterally Skin: Curlew, warm, no wounds or lesions present. Neuro: AAOx3. No gross motor or sensory deficits. Psych: Appropriate mood and affect Midline Catheter Left;Upper Arm (Active) Number of days: 9 Hemodialysis Arteriovenous Fistula Right Forearm (Active) Number of days: 671 Laboratory Values: reviewed. -- Brief labs below include the 7 most recent results over the past week. No results in the last 7 days - inpatent use only Lab results within last 7 days (see chart for full results) Units 10/13/24 0429 10/12/24 0445 10/11/24 0620 10/09/24 0507 10/08/24 2034 10/08/24 0327 10/07/24 1644 10/07/24 0415 SODIUM mmol/L 132* 134* 128* 134* 130* 133* 132* 131* POTASSIUM mmol/L 5.0 5.1 6.0* 4.5 4.0 5.2* 5.2* 4.7 CHLORIDE mmol/L 94* 95* 90* 94* 92* 91* 91* 91* CO2 mmol/L 23 24 20* 27 25 25 24 25 EGFR mL/min 7* 8* 5* 8* 9* 4* 5* 5* BUN mg/dL 38* 29* 55* 26* 24* 52* 46* 42* CREATININE mg/dL 6.6* 5.3* 8.4* 5.7* 5.1* 9.2* 8.7* 8.1* GLUCOSE mg/dL 133* 168* 108 120 263* 169* 124* 149* CALCIUM mg/dL 9.5 9.4 9.2 9.1 9.0 8.8 8.5 8.8 Magnesium mg/dL -- -- -- 2.2 2.1 2.5 2.3 2.3 Phosphorus mg/dL 5.5* 5.3* 6.3* 5.6* -- 7.3* -- 5.9* ANION GAP mmol/L 15 15 18* 13 13 17* 17* 15 Lab results within last 7 days (see chart for full results) Units 10/13/24 0429 10/12/24 0445 10/11/24 0620 10/09/24 0507 10/08/24 0327 10/07/24 0415 WBC K/uL 8.93 9.58 10.73 9.57 10.76 12.17* HGB g/dL 8.2* 8.8* 8.8* 8.2* 8.3* 8.4* HCT % 25.7* 28.0* 27.7* 26.7* 27.9* 27.9* PLT K/uL 190 209 202 194 217 238 MCV fL 95.9 95.2 94.2 98.5 100.0 99.6 Lab results within last 7 days (see chart for full results) Units 10/10/24 1756 BNP, NT-Pro pg/mL 32,069* No results in the last 7 days - inpatent use only Lab results within last 7 days (see chart for full results) Units 10/12/24 0445 Albumin g/dL 3.4* Protein g/dL 6.1 Bilirubin, Total mg/dL 0.3 Bilirubin, Direct mg/dL <0.1 AST U/L 26 ALT U/L <5* Alkaline Phosphatase U/L 112 No results in the last 7 days - inpatent use only Cultures: reviewed. No results in the last 7 days - inpatent use only Recent Cultures (2 Weeks) No lab values to display. Radiographic Studies: reviewed. No imaging results in the last 72 hours Echocardiogram on 10/06/2024: The examination is adequate to evaluate the referral indication. The qualitative LV ejection fraction is 55-59% (normal). The LV wall thickness is mildly increased (concentric). No LV segmental wall motion abnormalities. The right ventricular cavity is mildly dilated. The right ventricular systolicfunction is qualitatively normal. Mild aortic valve stenosis is present. Mild aortic valve regurgitation is present. Mild mitral stenosis is present. Severe mitral regurgitation is present. The estimated pulmonary artery systolic pressure is 50 mmHg. Moderate pulmonary hypertension is present. Transesophageal echocardiogram on 10/06/2024: The examination is adequate to evaluate the referral indication. Severe mitral regurgitation is present. There is severe mitral annular calcification. There is a cleft in between P1 and P2. Moderate, progressive mitral stenosis is present. Mean gradient of 7mmHg when HR was 60. The qualitative LV ejection fraction is 55-59% (normal). Moderate tricuspid regurgitation is present. Aortic stenosis is absent. Most recent cardiac cath on 10/06/2024: Moderate single vessel non-obstructive CAD -prox LAD 50% stenosis --> FFR 0.83 (not hemodynamically significant thus PCI deferred) -luminal irregularities elsewhere * LVEDP 17 mmHg (mildly elevated) Current Facility-Administered Medications: insulin aspart (NovoLOG) inj, , Subcutaneous, With meals, Haroon Pike MD, 6 Units at 10/13/24 1359 [START ON 10/14/2024] renal vitamin cap 1 mg, 1 Capsule, Oral, Daily(AM), Josh Duvall MD Acetaminophen (Tylenol) tab 650 mg, 650 mg, Oral, Q6H PRN, Haroon Pike MD, 650 mg at 10/12/24 1134 calcium acetate (Phos Binder) (Phoslo) cap/tab 2,001 mg, 2,001 mg, Oral, With meals, 2,001 mg at 10/13/24 1352 AND [DISCONTINUED] calcium acetate (Phos Binder) (Phoslo) cap/tab 1,334 mg, 1,334 mg, Oral, With snacks, Marcell Garsia DO Insulin Glargine (Lantus) inj 10 Units, 10 Units, Subcutaneous, AM Insulin, Marcell Garsia DO, 10 Units at 10/13/24 1351 hEParin inj 7,500 Units, 7,500 Units, Subcutaneous, Q8H, Kaden Arana MD, 7,500 Units at 352 midodrine (Proamatine) tab 5 mg, 5 mg, Oral, Daily PRN, Surampudi, Diane, DO, 5 mg at 10/11/24 0712 Lidocaine (Aspercreme) 4 % patch 1 Patch, 1 Patch, Transdermal, Daily(AM), Marcell Garsia DO, 1 Patch at 10/13/24 1352 insulin aspart (NovoLOG) inj, , Subcutaneous, With Meals and HS, Steffen Kidd MD, 8 Units at 10/12/24 2200 epoetin janice-epbx ESRD (Retacrit) 39408 UNIT/ML inj 8,000 Units, 8,000 Units, IV Push, On dialysis,Atif, Barbiezac Sánchez PA-C, 8,000 Units at 10/13/24 1027 levothyroxine (Levoxyl) tab 100 mcg, 100 mcg, Oral, Daily 0630, Marcell Garsia DO, 100 mcg at 10/13/24 0529 Polyethylene Glycol 3350 (Miralax) oral powder 17 g, 1 Packet, Oral, Daily(AM), Marcell Garsia DO aspirin chew tab 81 mg, 81 mg, Oral, HS, Marcell Garsia DO, 81 mg at 10/12/242055 atorvaSTATin (Lipitor) tab 40 mg, 40 mg, Oral, Q 1700, Mracell Garsia DO, 40 mg at 10/12/24 1743 citalopram (CeleXA) tab 20 mg, 20 mg, Oral, Daily(AM), Marcell Garsia DO, 20 mg at 10/13/24 1352 dextrose 50% inj 25 mL, 25 mL, IV Push, PRN, Marcell Garsia DO, 25 mL at 10/11/24 1015 dextrose 50% inj 50 mL, 50 mL, IV Push, PRN, Marcell Garsia DO Gabapentin (Neurontin) cap 300 mg, 300 mg, Oral, QHS, Steffen Kidd MD, 300 mg at 10/12/242055 glucagon (Glucagen) inj 1 mg, 1 mg, Intramuscular, PRN, Marcell Garsia DO Glucose (Glutose 15) 40 % gel 15 g of glucose, 15 g of glucose, Oral, PRN, Marcell Garsia DO Glucose (Glutose 15) 40 % gel 30 g of glucose, 30 g of glucose, Oral, PRN, Marcell Garsia, DO glucose chew tab 16 g, 16 g, Oral, PRN, Marcell Garsia, DO Assessment & Plan Assessment and Plan: Principal Problem: Ventricular tachycardia, non-sustained (HCC) (POA: Yes) Active Problems: Type 2 diabetes mellitus with hemoglobin A1c goal of less than 7.0% (HCC) (POA: Yes) Chronic diastolic heart failure (HCC) (POA: Yes) End stage renal disease on dialysis (HCC) (POA: Yes) Arterial hypotension (POA: Unknown) Anemia of renal disease (POA: Unknown) Mitral stenosis with insufficiency (POA: Unknown) Chronic hyponatremia (POA: Unknown) Hyperphosphatemia (POA: Unknown) Severe mitral regurgitation (POA: Unknown) Resolved Problems: Hyperkalemia (POA: Unknown) POA = Present On Admission Candi Finley is a 63 year old female with PMHx as above who is admitted for episodes of syncope in the setting of non-sustained polymorphic VT. Acute hypoxic respiratory failure (resolved) Severe mitral regurgitation - Amb ox and noc ox were done - MOUNA with severe MR and moderate MS. Evaluation by CT Surgery and Interventional Cardiology Non-sustained polymorphic VT Syncope No episodes of VT or syncope since admission. EP placed ICD on 10/07/2024. - telemetry monitoring - BMP, Mag q24h. Goal K>4, Mag>2 - avoid QT prolonging agents Coronary Artery Disease 50% LAD lesion (not hemodynamically significant with FFR 0.83) - continue BACKPACKERS MANAGER aspirin, atorvastatin HFpEF HTN Severe MR, moderate MS - holding BACKPACKERS MANAGER amlodipine in setting of asymptomatic hypotension - BACKPACKERS MANAGER Coreg at lower dose 3.125 mg BID, was held due to low normal BP ESRD on HD MWF (last session 10/04/24) - Nephrology consulted - HD session 10/11/24, HD session today - continue BACKPACKERS MANAGER phos binder UA with pyuria and bacteruria at [facility] Patient with atypical symptoms that have resolved. No convincing evidence of urinary tract infection, therefore will not treat with antibiotics. - monitor off antibiotics Rhinovirus (positive 10/04 at [facility]) - continue supportive care - droplet precautions Insulin-dependent type 2 diabetes (A1c 7.7 05/07/24) - MDSSI, CC 1:10 - lantus 10 units AM (BACKPACKERS MANAGER 10 units) Chronic problems: MINISTERIO: CPAP at night Depression: Continue BACKPACKERS MANAGER citalopram Diabetic neuropathy: Continue BACKPACKERS MANAGER gabapentin Hypothyroidism: Continue BACKPACKERS MANAGER levothyroxine Misc: Diet: Heart healthy, CC, renal Bowel Regimen: Last Bowel Movement: 10/11/24 (per pt) (10/11/241949) Stool Description: Loose (per pt) (10/11/241949) Sleep: No sleep protocol ordered [place]: Not indicated at this time PT/OT: N/A GI prophylaxis: Not indicated at this time VTE Prophylaxis: heparin prophylaxis Code Status: Full Anticipated Discharge: tomorrow LINES / DRAINS / TUBES: LINES ALL Duration Hemodialysis Arteriovenous Fistula Right Forearm 671 days Midline Catheter Left;Upper Arm 8 days List of services consulted/following: NEPHROLOGY CONSULT IP ELECTROPHYSIOLOGY CONSULT IP CARDIAC SURGERY CONSULT IP Patient was discussed with Framer and attending physician, MD Haroon Washburn, IM PGY-2 Cosigned by Kaden Arana MD at 10/13/2024 9:48 PM EDT Associated attestation - Kaden Arana MD - 10/13/2024 9:48 PM EDT Images from the original note were not included. I saw and evaluated the patient today. I have reviewed the resident/fellow physician note and agree. 1- POD#6 AICD for NSVT, polymorphic 2- Severe Mitral regurgitation & moderately progressive MS w severe MAC 3- Rhinovirus (+) 4- ESRD on HD (M, W, F) 5- DM 6- HFpEF 7- Jody en Y Bypass 8- MINISTERIO on CPAP 9- Hypothyroidism RECOMMENDATIONS: 1- LUE pain feels better with Oxycodone and lidocaine patch. 2- Undergoing dialysis today and being able to pull fluid off on Midodrine. Will ambulate post dialysis; her SOB has improved post dialysis Friday. Currently off BP meds due to low normal BP's, requiring Midodrine predialysis. 3- BNP was significantly elevated. 4- MOUNA showed MV is heavily calcified w severe MR and moderately progressive MS which is the cause of her symptoms. Cardiac surgery eval. pending for candidacy of MVR. STS score reported as 9% Op.mortality. 5- Continue ASA/Lipitor. Holding Coreg/Norvasc/Losartan. Started on Midodrine for dialysis, as per Neph. Discussed with patient she is in agreement with above plan, await Cardiac surgery input. * Kaden Arana MD - 10/13/2024 1:00 PM EDT I saw and evaluated the patient today. I have reviewed the resident/fellow physician note and agree. 1- POD#6 AICD for NSVT, polymorphic 2- Severe Mitral regurgitation & moderately progressive MS w severe MAC 3- Rhinovirus (+) 4- ESRD on HD (M, W, F) 5- DM 6- HFpEF 7- Jody en Y Bypass 8- MINISTERIO on CPAP 9- Hypothyroidism RECOMMENDATIONS: 1- LUE pain feels better with Oxycodone and lidocaine patch. 2- Undergoing dialysis today and being able to pull fluid off on Midodrine. Will ambulate post dialysis; her SOB has improved post dialysis Friday. Currently off BP meds due to low normal BP's, requiring Midodrine predialysis. 3- BNP was significantly elevated. 4- MOUNA showed MV is heavily calcified w severe MR and moderately progressive MS which is the cause of her symptoms. Cardiac surgery eval. pending for candidacy of MVR. STS score reported as 9% Op.mortality. 5- Continue ASA/Lipitor. Holding Coreg/Norvasc/Losartan. Started on Midodrine for dialysis, as per Neph. Discussed with patient she is in agreement with above plan, await Cardiac surgery input. * Lanny Meek CRNP - 10/13/2024 12:01 PM EDT PROGRESS NOTE - Nephrology [facility] [place]-[address] [address] Name: Candi Finley Location: [facility] H879/A Date: 10/13/2024 Time: 12:01 PM Nephrology follow-up ESRD on dialysis Interval history past 24 hrs: Seen on dialysis, tolerating well Endorses doing ok Denies: SOB, chest pain, N/V, diarrhea, or LE edema ROS otherwise negative unless mentioned above OBJECTIVE: Most Recent Vital Signs: BP: 119 mmHg/44 mmHg (10/13/24 1147) Pulse: 62 (10/13/24 1147) Resp: 17 (10/13/24812) Temp: 36.39 C (10/13/24812) Temp Summary: Temp Min: 36.4 °C (97.5 °F) Max: 37 °C (98.6 °F) SpO2: 100 % (10/13/24903) O2 flow rate: 1 L/MIN (10/12/242219) Supplemental O2 Delivery: Room Air, None (10/13/24903) Vital Signs last 24 Hours: Systolic BP: Most Recent Systolic BP Av.5 mmHg Min: 84 mmHg Max: 125 mmHg Temperature: Most Recent Temperature Av.7 C Min: 36.39 C Max: 37 C Pulse: Pulse Av.5 Min: 57 Max: 80 Respirations: Resp Av.9 Min: 14 Max: 18 SpO2: SpO2 Av.7 % Min: 93 % Max: 100 % Intake/Output Summary (Last 24 hours) at 10/13/2024 1201 Last data filed at 10/12/2024 1532 Gross per 24 hour Intake 500 ml Output -- Net 500 ml Weight: 106.6 kg (235 lb 0.2 oz) Physical Examination: Dialysis Access: + R UE AVF with good thrill and bruit Gen: in no acute distress, appears chronically-ill Skin: warm, dry HEENT: mucous membranes moist Neck: no JVD, supple Resp: clear bilaterally, unlabored CV: regular rate and rhythm, no bruits Abdomen: soft, nontender, nondistended Genitourinary: n/a Extremities: no LE edema Neuro: A&O, conversing appropriately Psych: appropriate IMAGING: new imaging from 10/12 personally reviewed Adult Transesophageal Echocardiography Report Interpretation Summary The examination is adequate to evaluate the referral indication. Severe mitral regurgitation is present. There is severe mitral annular calcification. There is a cleft in between P1 and P2. Moderate, progressive mitral stenosis is present. Mean gradient of 7mmHg when HR was 60. The qualitative LV ejection fraction is 55-59% (normal). Moderate tricuspid regurgitation is present. Aortic stenosis is absent LABS: Reviewed pertinent. Lab results within last 7 days (see chart for full results) Units 10/13/24 0429 10/12/24 0445 10/11/24 0620 CREATININE mg/dL 6.6* 5.3* 8.4* BUN mg/dL 38* 29* 55* GLUCOSE mg/dL 133* 168* 108 SODIUM mmol/L 132* 134* 128* POTASSIUM mmol/L 5.0 5.1 6.0* ANION GAP mmol/L 15 15 18* CO2 mmol/L 23 24 20* CHLORIDE mmol/L 94* 95* 90* Lab results within last 7 days (see chart for full results) Units 10/13/24 0429 10/12/24 0445 10/11/24 0620 HGB g/dL 8.2* 8.8* 8.8* HCT % 25.7* 28.0* 27.7* WBC K/uL 8.93 9.58 10.73 PLT K/uL 190 209 202 Lab results within last 7 days (see chart for full results) Units 10/13/24 0429 10/12/24 0445 10/11/24 0620 10/09/24 0507 10/08/24203310/08/24 0327 Magnesium mg/dL -- -- -- 2.2 2.1 2.5 Albumin g/dL -- 3.4* -- -- -- -- CALCIUM mg/dL 9.5 9.4 9.2 9.1 9.0 8.8 Phosphorus mg/dL 5.5* 5.3* 6.3* 5.6* -- 7.3* Lab Results Component Value Date/Time PTH 514 (H) 07/01/2022 09:10 AM PTH 195 (H) 03/17/2020 09:21 AM 25OHVITAMIND 50 07/01/2022 09:10 AM 25OHVITAMIND 46 03/17/2020 09:21 AM TRANSAT 41 07/01/2022 09:10 AM TRANSAT 29 03/17/2020 09:21 AM FERRITIN 1,689 (H) 11/28/2022 12:30 PM FERRITIN 215.4 (H) 03/17/2020 09:21 AM K 5.0 wnl Hgb 8.2 anemia Phos 5.5 hyperphosphatemia Impression/Plan ESRD on iHD MWF via RUE AVF at [place], DM type 2, proliferative diabetic retinopathy, HTN, HFpEF, MINISTERIO on CPAP, endometrial cancer presented with syncope, non-sustained polymorphic VT, s/p cardiac cath 10/06, 50% LAD lesion, s/p AICD placement #V tach - nonsustained # ESRD on HD MWF via rUE AVF at [place] - dialysis today for goal ultrafiltration 2-3 L. Plan for next dialysis friday to continue with OP schedule or unless indicated sooner - draw daily RFP to include albumin and phos level - adjust medications for HD thrice weekly - renal dialysis diet - please monitor and record accurate intake and output for proper ultrafiltration Rx # Anemia of renal disease - Anemia: Hgb 8.2, epo 8000 units on HD.. # Mineral Bone Disease (MBD) - phos noted 5.5 continue with current dose phos binders at mealtimes # Hypertension - blood pressure within acceptable range, continue current regimen of midodrine 5 mg prior to HD and 5 mg shelter through dialysis. - rest of mgmt per primary team Patient seen, assessed, and discussed with attending Dr. Duvall I spent a total of 25 minutes coordinating, documenting, and providing care for this patient excluding time spent in the performance of separately billed services or time spent by another provider/QHP. ? LUCRECIA Rose 10/13/24 [email or web address] Cosigned by Josh Duvall MD at 10/13/2024 3:52 PM EDT Associated attestation - Josh Duvall MD - 10/13/2024 3:52 PM EDT I have reviewed the advanced practitioner's documentation on the date of service referenced in note, and I agree with, and take responsibility for the plan of care. Patient seen on dialysis today, tolerating well * Haroon Pike MD - 10/12/2024 2:35 PM EDT PROGRESS NOTE - Cardiology [facility]-[address] [id number] Name: Candi Finley Location: [facility] H879/[id number] Date: 10/12/2024 Time: 5:55 PM Date of admission: 10/05/2024 Hospital length of stay: 7 days Subjective Summary: Candi Finley is a 63 year-old female with PMH of ESRD on iHD MWF, sick sinus syndrome, tachy-andrew syndrome s/p dual chamber pacemaker in 2019, CHFpEF, R-en-Y gastric bypass in 2017, MINISTERIO on CPAP, ID DM type 2, diabetic neuropathy, depression, HTN, recent rhinivirus infection presents for episodes of syncope in the setting of non-sustained polymorphic VT. Overnight Events: No acute events overnight. Subjective: Patient seen and examined at bedside. Patient denies SOB, chest pain, abdominal pain, dysuria, joint pain, muscle pain and weakness. Objective CONSTITUTIONAL DATA / OBJECTIVE: Vital Signs (Most Recent): Blood Pressure: 101/45 mmHg Last 12H: Most Recent Systolic BP Av.1 mmHg Min: 84 mmHg Max: 125 mmHg Pulse: 65 Last 12H: Pulse Av Min: 61 Max: 78 Temperature: 36.4 °C (97.6 °F) Last 12H: Most Recent Temperature Av.8 C Min: 36.44 C Max: 37.22 C Respiratory Rate: 16 O2 Saturation: 94 % Vital Signs (Last 24 Hours): Pulse Av Min: 61 Max: 78 No data recorded Most Recent Systolic BP Av.1 mmHg Min: 84 mmHg Max: 139 mmHg Most Recent Diastolic BP Av.5 mmHg Min: 38 mmHg Max: 109 mmHg Resp Av.3 Min: 14 Max: 18 Most Recent Temperature Av.7 C Min: 36.28 C Max: 37.22 C SpO2 Av.4 % Min: 92 % Max: 100 % Intake & Output Summary (Last 24 hours): Intake/Output Summary (Last 24 hours) at 10/12/2024 1755 Last data filed at 10/12/2024 1532 Gross per 24 hour Intake 740 ml Output 25 ml Net 715 ml Net IO Since Admission: 1,223.41 mL [10/11/24 1435] Height & Weight: Height: 162.6 cm (5' 4.02") (10/05/24 1555) Weight: 104.4 kg (230 lb 2.6 oz) (10/12/24 0541) Weight change: -4.1 kg (-9 lb 0.6 oz) Body mass index is 39.49 kg/m². Physical Examination: General: Patient in no apparent distress HEENT: normocephalic, atraumatic Heart: regular rate and rhythm; S1 and S2 present; no murmurs, rubs or gallops. Pulmonary: Lungs clear to auscultation bilaterally; no wheezes, rhonchi or crackles. Abdomen: Soft, non-tender, non-distended. Normal bowel sounds and no rebound or guarding. MSK: Patient able to ambulate; Gross motor function intact Extremities: No pitting edema present at lower extremity bilaterally Skin: Curlew, warm, no wounds or lesions present. Neuro: AAOx3. No gross motor or sensory deficits. Psych: Appropriate mood and affect Midline Catheter Left;Upper Arm (Active) Number of days: 8 Hemodialysis Arteriovenous Fistula Right Forearm (Active) Number of days: 670 Laboratory Values: reviewed. -- Brief labs below include the 7 most recent results over the past week. No results in the last 7 days - inpatent use only Lab results within last 7 days (see chart for full results) Units 10/12/24 0445 10/11/24 0620 10/09/24 0507 10/08/24 2034 10/08/24 0327 10/07/24 1644 10/07/24 0415 10/06/24 1603 10/06/24 0410 10/06/24 0410 SODIUM mmol/L 134* 128* 134* 130* 133* 132* 131* 133* -- 130* POTASSIUM mmol/L 5.1 6.0* 4.5 4.0 5.2* 5.2* 4.7 4.9 < > -- CHLORIDE mmol/L 95* 90* 94* 92* 91* 91* 91* 91* -- 89* CO2 mmol/L 24 20* 27 25 25 24 25 25 -- 27 EGFR mL/min 8* 5* 8* 9* 4* 5* 5* 6* -- 6* BUN mg/dL 29* 55* 26* 24* 52* 46* 42* 38* -- 36* CREATININE mg/dL 5.3* 8.4* 5.7* 5.1* 9.2* 8.7* 8.1* 7.5* -- 6.6* GLUCOSE mg/dL 168* 108 120 263* 169* 124* 149* 136* -- 228* CALCIUM mg/dL 9.4 9.2 9.1 9.0 8.8 8.5 8.8 9.6 -- 9.6 Magnesium mg/dL -- -- 2.2 2.1 2.5 2.3 2.3 2.2 -- 2.2 Phosphorus mg/dL 5.3* 6.3* 5.6* -- 7.3* -- 5.9* -- -- 6.2* ANION GAP mmol/L 15 18* 13 13 17* 17* 15 17* -- 14 < > = values in this interval not displayed. Lab results within last 7 days (see chart for full results) Units 10/12/24 0445 10/11/24 0620 10/09/24 0507 10/08/24 0327 10/07/24 0415 10/06/24 0410 WBC K/uL 9.58 10.73 9.57 10.76 12.17* 9.59 HGB g/dL 8.8* 8.8* 8.2* 8.3* 8.4* 8.6* HCT % 28.0* 27.7* 26.7* 27.9* 27.9* 28.4* PLT K/uL 209 202 194 217 238 261 MCV fL 95.2 94.2 98.5 100.0 99.6 100.0 Lab results within last 7 days (see chart for full results) Units 10/10/24 1756 BNP, NT-Pro pg/mL 32,069* Lab results within last 7 days (see chart for full results) Units 10/06/24 0410 Prothrombin Time seconds 14.0 INR 1.1 Lab results within last 7 days (see chart for full results) Units 10/12/24 0445 Albumin g/dL 3.4* Protein g/dL 6.1 Bilirubin, Total mg/dL 0.3 Bilirubin, Direct mg/dL <0.1 AST U/L 26 ALT U/L <5* Alkaline Phosphatase U/L 112 No results in the last 7 days - inpatent use only Cultures: reviewed. No results in the last 7 days - inpatent use only Recent Cultures (2 Weeks) No lab values to display. Radiographic Studies: reviewed. XR CHEST 2 VIEWS Result Date: 10/09/2024 IMPRESSION Similar findings of CHF. Echocardiogram on 10/06/2024: The examination is adequate to evaluate the referral indication. The qualitative LV ejection fraction is 55-59% (normal). The LV wall thickness is mildly increased (concentric). No LV segmental wall motion abnormalities. The right ventricular cavity is mildly dilated. The right ventricular systolicfunction is qualitatively normal. Mild aortic valve stenosis is present. Mild aortic valve regurgitation is present. Mild mitral stenosis is present. Severe mitral regurgitation is present. The estimated pulmonary artery systolic pressure is 50 mmHg. Moderate pulmonary hypertension is present. Transesophageal echocardiogram on 10/06/2024: The examination is adequate to evaluate the referral indication. Severe mitral regurgitation is present. There is severe mitral annular calcification. There is a cleft in between P1 and P2. Moderate, progressive mitral stenosis is present. Mean gradient of 7mmHg when HR was 60. The qualitative LV ejection fraction is 55-59% (normal). Moderate tricuspid regurgitation is present. Aortic stenosis is absent. Most recent cardiac cath on 10/06/2024: Moderate single vessel non-obstructive CAD -prox LAD 50% stenosis --> FFR 0.83 (not hemodynamically significant thus PCI deferred) -luminal irregularities elsewhere * LVEDP 17 mmHg (mildly elevated) Current Facility-Administered Medications: Acetaminophen (Tylenol) tab 650 mg, 650 mg, Oral, Q6H PRN, Haroon Pike MD, 650 mg at 10/12/24 1134 [START ON 10/13/2024] midodrine (Proamatine) tab 5 mg, 5 mg, Oral, On dialysis, Oscar Burris MD calcium acetate (Phos Binder) (Phoslo) cap/tab 2,001 mg, 2,001 mg, Oral, With meals, 2,001 mg at 10/12/24 1743 AND [DISCONTINUED] calcium acetate (Phos Binder) (Phoslo) cap/tab 1,334 mg, 1,334 mg, Oral, With snacks, Marcell Garsia DO Insulin Glargine (Lantus) inj 10 Units, 10 Units, Subcutaneous, AM Insulin, Marcell Garsia DO hEParin inj 7,500 Units, 7,500 Units, Subcutaneous, Q8H, Kaden Arana MD, 7,500 Units at 541 midodrine (Proamatine) tab 5 mg, 5 mg, Oral, Daily PRN, Elvis Arreolati, DO, 5 mg at 10/11/24 0712 Lidocaine (Aspercreme) 4 % patch 1 Patch, 1 Patch, Transdermal, Daily(AM), Marcell Garsia DO, 1 Patch at 10/12/24 0907 insulin aspart (NovoLOG) inj, , Subcutaneous, With Meals and HS, Steffen Kidd MD, 2 Units at 10/12/24 1214 epoetin janice-epbx ESRD (Retacrit) 23738 UNIT/ML inj 8,000 Units, 8,000 Units, IV Push, On dialysis,Barbie Srivastava PA-C, 8,000 Units at 10/11/24 1145 levothyroxine (Levoxyl) tab 100 mcg, 100 mcg, Oral, Daily 0630, Marcell Garsia DO, 100 mcg at 10/12/24 0541 Polyethylene Glycol 3350 (Miralax) oral powder 17 g, 1 Packet, Oral, Daily(AM), Marcell Garsia DO aspirin chew tab 81 mg, 81 mg, Oral, HS, Marcell Garsia, , 81 mg at 10/11/24 210 atorvaSTATin (Lipitor) tab 40 mg, 40 mg, Oral, Q 1700, Marcell Garsia, DO, 40 mg at 10/12/24 1743 citalopram (CeleXA) tab 20 mg, 20 mg, Oral, Daily(AM), Marcell Garsia, , 20 mg at 10/12/24 0906 dextrose 50% inj 25 mL, 25 mL, IV Push, PRN, Marcell Garsia, DO, 25 mL at 10/11/24 1015 dextrose 50% inj 50 mL, 50 mL, IV Push, PRN, Marcell Garsia, DO Gabapentin (Neurontin) cap 300 mg, 300 mg, Oral, QHS, Talha Manzanares, Steffen Meehan MD, 300 mg at 10/11/242102 glucagon (Glucagen) inj 1 mg, 1 mg, Intramuscular, PRN, Marcell Garsia, Glucose (Glutose 15) 40 % gel 15 g of glucose, 15 g of glucose, Oral, PRN, Marcell Garsia, Glucose (Glutose 15) 40 % gel 30 g of glucose, 30 g of glucose, Oral, PRN, Marcell Garsia, glucose chew tab 16 g, 16 g, Oral, PRN, Marcell Garsia, Assessment & Plan Assessment and Plan: Principal Problem: Ventricular tachycardia, non-sustained (HCC) (POA: Yes) Active Problems: Type 2 diabetes mellitus with hemoglobin A1c goal of less than 7.0% (HCC) (POA: Yes) Chronic diastolic heart failure (HCC) (POA: Yes) End stage renal disease on dialysis (HCC) (POA: Yes) Arterial hypotension (POA: Unknown) Anemia of renal disease (POA: Unknown) Mitral stenosis with insufficiency (POA: Unknown) Hyperkalemia (POA: Unknown) Chronic hyponatremia (POA: Unknown) Hyperphosphatemia (POA: Unknown) Resolved Problems: * No resolved hospital problems. * POA = Present On Admission Candi Finley is a 63 year old female with PMHx as above who is admitted for episodes of syncope in the setting of non-sustained polymorphic VT. Acute hypoxic respiratory failure (resolved) Severe mitral regurgitation - Amb ox and noc ox were done today - MOUNA today with severe MR and moderate MS. Probably not a good candidate for transcutaneous intervention, CT Surgery outpatient Non-sustained polymorphic VT Syncope No episodes of VT or syncope since admission. EP placed ICD on 10/07/2024. - telemetry monitoring - BMP, Mag q24h. Goal K>4, Mag>2 - avoid QT prolonging agents Coronary Artery Disease 50% LAD lesion (not hemodynamically significant with FFR 0.83) - continue BACKPACKERS MANAGER aspirin, atorvastatin HFpEF HTN Severe MR, moderate MS - holding BACKPACKERS MANAGER amlodipine in setting of asymptomatic hypotension - BACKPACKERS MANAGER Coreg at lower dose 3.125 mg BID, was held today due to low normal BP and in the setting of MOUNA with sedation ESRD on HD MWF (last session 10/04/24) - Nephrology consulted - HD session 10/11/24, plan for HD tomorrow - continue BACKPACKERS MANAGER phos binder UA with pyuria and bacteruria at [facility] Patient with atypical symptoms that have resolved. No convincing evidence of urinary tract infection, therefore will not treat with antibiotics. - monitor off antibiotics Rhinovirus (positive 10/04 at [facility]) - continue supportive care - droplet precautions Insulin-dependent type 2 diabetes (A1c 7.7 05/07/24) - MDSSI - lantus 10 units AM (BACKPACKERS MANAGER 10 units) Chronic problems: MINISTERIO: CPAP at night Depression: Continue BACKPACKERS MANAGER citalopram Diabetic neuropathy: Continue BACKPACKERS MANAGER gabapentin Hypothyroidism: Continue BACKPACKERS MANAGER levothyroxine Misc: Diet: Heart healthy, CC, renal Bowel Regimen: Last Bowel Movement: 10/11/24 (per pt) (10/11/241949) Stool Description: Loose (per pt) (10/11/241949) Sleep: No sleep protocol ordered [place]: Not indicated at this time PT/OT: N/A GI prophylaxis: Not indicated at this time VTE Prophylaxis: heparin prophylaxis Code Status: Full Anticipated Discharge: tomorrow LINES / DRAINS / TUBES: LINES ALL Duration Hemodialysis Arteriovenous Fistula Right Forearm 670 days Midline Catheter Left;Upper Arm 7 days List of services consulted/following: NEPHROLOGY CONSULT IP ELECTROPHYSIOLOGY CONSULT IP Patient was discussed with Framer and attending physician, MD Haroon Washburn, ISMAEL PGY-2 Cosigned by Kaden Arana MD at 10/12/2024 5:59 PM EDT Associated attestation - Kaden Arana MD - 10/12/2024 5:59 PM EDT I saw and evaluated the patient today. I have reviewed the resident/fellow physician note and agree. * Oscar Burris MD - 10/12/2024 2:00 PM EDT PROGRESS NOTE - Nephrology [facility] [place]-[address] [id number] Name: Candi Finley Location: OR [facility]/OR Overview/ Follow up: ESRD on iHD MWF via RUE AVF at [place], DM type 2, proliferative diabetic retinopathy, HTN, HFpEF, MINISTERIO on CPAP, endometrial cancer presented with syncope, non-sustained polymorphic VT, s/p cardiac cath 10/06, 50% LAD lesion, s/p AICD placement Subjective: No acute events overnight Dialyzed yesterday, tolerated ultrafiltration 3 L, given midodrine 5 mg before dialysis Dyspnea on exertion Denied dizziness on ambulation No chest pain, orthopnea, abdominal pain Scheduled for MOUNA today Tentative discharge tomorrow as per primary team Review of Systems:all systems were reviewed and negative except as above Prior medical notes/PMH/PSH/FH/SH: reviewed Allergies: reviewed Current medication list reviewed. Current Facility-Administered Medications Medication Dose Route Frequency Provider Acetaminophen (Tylenol) tab 650 mg 650 mg Oral Q6H PRN Haroon Pike MD calcium acetate (Phos Binder) (Phoslo) cap/tab 2,001 mg 2,001 mg Oral With meals Marcell Garsia DO Insulin Glargine (Lantus) inj 10 Units 10 Units Subcutaneous AM Insulin Marcell Garsia DO hEParin inj 7,500 Units 7,500 Units Subcutaneous Q8H Kaden Arana MD midodrine (Proamatine) tab 5 mg 5 mg Oral Daily PRN Diane Arreola DO Lidocaine (Aspercreme) 4 % patch 1 Patch 1 Patch Transdermal Daily(AM) Marcell Garsia DO insulin aspart (NovoLOG) inj Subcutaneous With Meals and HS Steffen Kidd MD epoetin janice-epbx ESRD (Retacrit) 04935 UNIT/ML inj 8,000 Units 8,000 Units IV Push On dialysis Barbie Srivastava PA-C levothyroxine (Levoxyl) tab 100 mcg 100 mcg Oral Daily 0630 Marcell Garsia DO Polyethylene Glycol 3350 (Miralax) oral powder 17 g 1 Packet Oral Daily(AM) Marcell Garsia DO aspirin chew tab 81 mg 81 mg Oral HS Marcell Garsia DO atorvaSTATin (Lipitor) tab 40 mg 40 mg Oral Q 1700 Marcell Garsia DO citalopram (CeleXA) tab 20 mg 20 mg Oral Daily(AM) Marcell Garsia DO dextrose 50% inj 25 mL 25 mL IV Push PRN Marcell Garsia DO dextrose 50% inj 50 mL 50 mL IV Push PRN Marcell Garsia DO Gabapentin (Neurontin) cap 300 mg 300 mg Oral QHS Steffen Kidd MD glucagon (Glucagen) inj 1 mg 1 mg Intramuscular PRN Marcell Garsia DO Glucose (Glutose 15) 40 % gel 15 g of glucose 15 g of glucose Oral PRN Marcell Garsia DO Glucose (Glutose 15) 40 % gel 30 g of glucose 30 g of glucose Oral PRN Marcell Garsia DO glucose chew tab 16 g 16 g Oral PRN Marcell Garsia DO Objective/Physical Examination Most Recent Vital Signs: BP: 101 mmHg/42 mmHg (10/12/24 1343) Pulse: 71 (10/12/24 1343) Resp: 16 (10/12/24 1343) Temp: 36.89 C (10/12/24 1343) Temp Summary: Temp Min: 36.3 °C (97.3 °F) Max: 37.2 °C (99 °F) SpO2: 96 % (10/12/24 134) O2 flow rate: 0 L/MIN (10/11/24 2313) Supplemental O2 Delivery: Room Air, None (10/12/24 134) Vital Signs last 24 Hours: Systolic BP: Most Recent Systolic BP Av.7 mmHg Min: 85 mmHg Max: 153 mmHg Temperature: Most Recent Temperature Av.7 C Min: 36.28 C Max: 37.22 C Pulse: Pulse Av.9 Min: 60 Max: 71 Respirations: Resp Av.2 Min: 14 Max: 18 SpO2: SpO2 Av.6 % Min: 92 % Max: 100 % Body mass index is 39.49 kg/m². Intake/Output Summary (Last 24 hours) at 10/12/2024 1401 Last data filed at 10/12/2024 1200 Gross per 24 hour Intake 240 ml Output 25 ml Net 215 ml Constitutional: No acute respiratory distress. saturating 96% in room air HEENT: NCAT CV: regular rate, regular rhythm, AICD in situ Chest: Decreased air entry bibasal with a scattered crackles Abdomen: soft, no tenderness, Extremities: no LEs edema. Skin: warm, dry Neuro: awake, alert, conversation appropriate Dialysis Access: Right upper extremity AV fistula with good thrill Studies: Last Labs and other studies reviewed with pertinent findings noted below: Cr 5.3 BUN 29 Sodium 134 K 5.1 HCO3 24 Ca 9.4 Phos 5.3 Hb 8.8 Rhinovirus positive 10/04/24 at [facility] Imaging : Personally reviewed and interpreted pertinent images ECHO 10/06: LVEF 55% Impression and Plan: #Syncope with Non-sustained polymorphic VT >s/p AICD placement 10/07 #ESRD no requirement for dialysis today, next dialysis tomorrow, on maintenance iHD as MWF schedule, midodrine 5 mg half an hour before and 5 mg shelter through dialysis as needed for intra dialytic hypotension. #Acid base and Electrolytes: Mild hyponatremia, will be adjusted with dialysis #Anemi : QUINCY 8000 units on dialysis. #Renal Osteodystrophy: normal Ca, hyperphosphatemia, continue dietary phosphorus restriction, phosphorus binders phoslo 2001 mg with meals Adjust medications as per hemodialysis Plan of care discussed with the primary attending physician and concurs with the above plan Thanks for letting me participate in this patient's care. Oscar Burris MD Associate nephrology * Marclel Garsia, DO - 10/11/2024 11:10 AM EDT PROGRESS NOTE - CARDIOLOGY [facility] [place]-[address] [id number] Name: Candi Finley Location: [facility] H879/A Date: 10/11/2024 Time: 11:10 AM Interval Events: 10/06/24: Cardiac catheterization 10/07/24: ICD placement Subjective: Patient reports some orthopnea overnight but this improved with wearing her CPAP with oxygen bled in to it. This morning she reports no significant shortness of breath while at rest. She gets significant dyspnea with minimal exertion. No chest pain, light-headedness, abdominal pain, nausea or dysuria. Objective: Vital Signs: Blood Pressure: 133/56 mmHg Last 12H: Most Recent Systolic BP Av.3 mmHg Min: 94 mmHg Max: 133 mmHg Pulse: 62 Last 12H: Pulse Av.2 Min: 60 Max: 74 Temperature: 36.6 °C (97.9 °F) Last 12H: Most Recent Temperature Av C Min: 35.61 C Max: 36.61 C Respiratory Rate: 18 O2 Saturation: 98 % Intake & Output: Intake/Output Summary (Last 24 hours) at 10/11/2024 1110 Last data filed at 10/10/2024 2135 Gross per 24 hour Intake 600 ml Output 150 ml Net 450 ml Physical Examination: General: no acute distress, appears comfortable lying in bed Head: atraumatic, normocephalic Neck: supple, trachea midline Cardio: regular rate and rhythm. Normal S1/S2. 3/6 murmur Respiratory: no signs of respiratory distress. Decreased breath sounds due to habitus Abdomen: soft, nontender, nondistended. No CVA tenderness Lower Extremities: no edema or erythema. Skin: warm, dry, intact. Nailbeds pink with no cyanosis Neuro: Alert and oriented x3, no focal deficits appreciated Psych: normal affect, appropriate ICD insertion site and left chest tender to palpation but without palpable hematoma Left forearm with improvement in erythema and edema but shrimp peeling machine tender to palpation Laboratory Values: reviewed Creatinine 8.4 Potassium 6.0 Sodium 128 Hemoglobin 8.8 No leukocytosis Radiographic & Other Studies: reviewed Impression and Plan: Principal Problem: Ventricular tachycardia, non-sustained (HCC) (POA: Yes) Active Problems: Type 2 diabetes mellitus with hemoglobin A1c goal of less than 7.0% (HCC) (POA: Yes) Chronic diastolic heart failure (HCC) (POA: Yes) End stage renal disease on dialysis (HCC) (POA: Yes) Arterial hypotension (POA: Unknown) Anemia of renal disease (POA: Unknown) Mitral stenosis with insufficiency (POA: Unknown) Resolved Problems: * No resolved hospital problems. * POA = Present On Admission Candi Finley is a 63 year old female with PMHx of sick sinus syndrome s/p dual-chamber pacemaker, HFpEF, ESRD on HD MWF presented with multiple syncopal episodes and found to have intermittent non-sustained polymorphic ventricular tachycardia. Transferred from [facility] for further management. Acute hypoxic respiratory failure Severe mitral regurgitation Etiology of her acute hypoxic respiratory failure likely flash pulmonary edema following small volume resuscitation in setting of her severe mitral regurgitation. Patient with improvement in oxygen requirement but still desaturates with ambulation and reports orthopnea. Minimal response to lasix gabriela us. Plan: - HD session today with hopeful 3L fluid removal - wean oxygen as tolerated - MOUNA following HD session to better characterize her mitral valve pathology Non-sustained polymorphic VT Syncope No episodes of VT or syncope since admission. EP placed ICD on 10/07/2024. - telemetry monitoring - BMP, Mag q12h. Goal K>4, Mag>2 - avoid QT prolonging agents Coronary Artery Disease 50% LAD lesion (not hemodynamically significant with FFR 0.83) - continue BACKPACKERS MANAGER aspirin, atorvastatin HFpEF HTN - holding BACKPACKERS MANAGER carvedilol 12.5mg and amlodipine in setting of asymptomatic hypotension ESRD on HD MWF - Nephrology consulted - HD session today - continue BACKPACKERS MANAGER phos binder UA with pyuria and bacteruria at [facility] Patient with atypical symptoms that have resolved. No convincing evidence of urinary tract infection, therefore will not treat with antibiotics. - monitor off antibiotics Rhinovirus (positive 10/04 at [facility]) - continue supportive care - droplet precautions Insulin-dependent type 2 diabetes (A1c 7.7 05/07/24) - MDSSI - lantus 10 units AM (BACKPACKERS MANAGER 10 units) MINISTERIO: CPAP at night Depression: Continue BACKPACKERS MANAGER citalopram Diabetic neuropathy: Continue BACKPACKERS MANAGER gabapentin Hypothyroidism: Continue BACKPACKERS MANAGER levothyroxine Misc: Bowel Regimen: MiraLax VTE Prophylaxis: heparin 7500u q8H and SCBs & TEDS Code Status: Full Code Disposition: 1-2 days Patient will be seen and examined by attending physician, MD Marcell Washburn DO Resident, Internal Medicine Cosigned by Kaden Arana MD at 10/11/2024 1:06 PM EDT Associated attestation - Kaden Arana MD - 10/11/2024 1:06 PM EDT I saw and evaluated the patient today. I have reviewed the resident/fellow physician note and agree. 1- POD#4 AICD for NSVT, polymorphic 2- Severe Mitral regurgitation & MS 3- Rhinovirus (+) 4- ESRD on HD (M, W, F) 5- DM 6- HFpEF 7- Jody en Y Bypass 8- MINISTERIO on CPAP 9- Hypothyroidism RECOMMENDATIONS: 1- LUE pain feels better with Oxycodone and lidocaine patch. 4/10 pain today. 2- Undergoing dialysis today and being able to pull fluid off on Midodrine. Will ambulate post dialysis and assess if SOB has improved. Observe today and adjust antihtn regimen post dialysis. 3- BNP was significantly elevated. 4- Her MV is heavily calcified w mild MS. Also has likely severe MR implying mixed valvular disease. For MOUNA today post dialysis. 5- Continue ASA/Lipitor/low dose Coreg. Holding Norvasc/Losartan. Started on Midodrine for dialysis, as per Neph. Discussed with patient she is in agreement with above plan. * Oscar Burris MD - 10/11/2024 8:41 AM EDT PROGRESS NOTE - Nephrology [facility] [place]-[address] [address] Name: Candi Finley Location: [facility] H879/A Overview/ Follow up: ESRD on iHD MWF via RUE AVF at [place], DM type 2, proliferative diabetic retinopathy, HTN, HFpEF, MINISTERIO on CPAP, endometrial cancer presented with syncope, non-sustained polymorphic VT, s/p cardiac cath 10/06, 50% LAD lesion, s/p AICD placement Subjective: No acute events overnight Seen during dialysis today, blood pressure 106/56, given midodrine 5 mg before dialysis No chest pain, dyspnea, abdominal pain, fevers , chills, Denied dizziness on ambulation Scheduled for MOUNA Review of Systems:all systems were reviewed and negative except as above Prior medical notes/PMH/PSH/FH/SH: reviewed Allergies: reviewed Current medication list reviewed. Current Facility-Administered Medications Medication Dose Route Frequency Provider Insulin Glargine (Lantus) inj 10 Units 10 Units Subcutaneous AM Insulin Marcell Garsia DO Carvedilol (Coreg) tab 3.125 mg 3.125 mg Oral BID (AM/PM meals) Diane Arreola, DO hEParin inj 7,500 Units 7,500 Units Subcutaneous Q8H Kaden Arana MD midodrine (Proamatine) tab 5 mg 5 mg Oral Daily PRN Diane Arreola, DO oxyCODONE (Oxy IR) tab 5 mg 5 mg Oral Q6H PRN Roni Elder MD Lidocaine (Aspercreme) 4 % patch 1 Patch 1 Patch Transdermal Daily(AM) Marcell Garsia DO insulin aspart (NovoLOG) inj Subcutaneous With Meals and HS Steffen Kidd MD epoetin janice-epbx ESRD (Retacrit) 31352 UNIT/ML inj 8,000 Units 8,000 Units IV Push On dialysis Atif,Barbie Sánchez PA-C levothyroxine (Levoxyl) tab 100 mcg 100 mcg Oral Daily 0630 Marcell Garsia DO Polyethylene Glycol 3350 (Miralax) oral powder 17 g 1 Packet Oral Daily(AM) Marcell Garsia DO aspirin chew tab 81 mg 81 mg Oral HS Marcell Garsia DO atorvaSTATin (Lipitor) tab 40 mg 40 mg Oral Q 1700 Marcell Garsia DO calcium acetate (Phos Binder) (Phoslo) cap/tab 2,001 mg 2,001 mg Oral With meals Marcell Garsia DO citalopram (CeleXA) tab 20 mg 20 mg Oral Daily(AM) Marcell Garsia DO dextrose 50% inj 25 mL 25 mL IV Push PRN Marcell Garsia DO dextrose 50% inj 50 mL 50 mL IV Push PRN Marcell Garsia DO Gabapentin (Neurontin) cap 300 mg 300 mg Oral QHS Steffen Kidd MD glucagon (Glucagen) inj 1 mg 1 mg Intramuscular PRN Marcell Garsia DO Glucose (Glutose 15) 40 % gel 15 g of glucose 15 g of glucose Oral PRN Marcell Garsia DO Glucose (Glutose 15) 40 % gel 30 g of glucose 30 g of glucose Oral PRN Marcell Garsia DO glucose chew tab 16 g 16 g Oral PRN Marcell Garsia DO Objective/Physical Examination Most Recent Vital Signs: BP: 106 mmHg/56 mmHg (10/11/24 0814) Pulse: 60 (10/11/24 0814) Resp: 18 (10/11/24756) Temp: 36.61 C (10/11/24756) Temp Summary: Temp Min: 35.6 °C (96.1 °F) Max: 37 °C (98.6 °F) SpO2: 98 % (10/11/24757) O2 flow rate: 2 L/MIN (10/11/24757) Supplemental O2 Delivery: Nasal Cannula (10/11/24757) Vital Signs last 24 Hours: Systolic BP: Most Recent Systolic BP Av.5 mmHg Min: 78 mmHg Max: 123 mmHg Temperature: Most Recent Temperature Av.4 C Min: 35.61 C Max: 37 C Pulse: Pulse Av Min: 60 Max: 84 Respirations: Resp Av Min: 18 Max: 18 SpO2: SpO2 Av.3 % Min: 90 % Max: 98 % Body mass index is 41.04 kg/m². Intake/Output Summary (Last 24 hours) at 10/11/2024 0841 Last data filed at 10/10/2024 2135 Gross per 24 hour Intake 600 ml Output 150 ml Net 450 ml Constitutional: No acute respiratory distress. saturating 98% with NCO2 2L HEENT: NCAT CV: regular rate, regular rhythm, AICD in situ Chest: Decreased air entry bibasal with a scattered crackles, no wheezing Abdomen: soft, no tenderness, Extremities: no LEs edema. Skin: warm, dry Neuro: awake, alert, conversation appropriate Dialysis Access: Right upper extremity AV fistula cannulated Studies: Last Labs and other studies reviewed with pertinent findings noted below: Cr 8.4 BUN 55 Sodium 128 K 6.0 HCO3 20 Ca 9.2 Phos 6.3 Hb 8.8 Rhinovirus positive 10/04/24 at [facility] Imaging : Personally reviewed and interpreted pertinent images ECHO 10/06: LVEF 55% Impression and Plan: #Syncope with Non-sustained polymorphic VT >s/p AICD placement 10/07 #ESRD dialysis today, on maintenance iHD as MWF schedule, midodrine 5 mg half an hour before and 5 mg shelter through dialysis as needed for intra dialytic hypotension. #Acid base and Electrolytes: Mild to moderate hyponatremia, hyperkalemia, metabolic acidosis will be corrected with dialysis #Anemi : QUINCY 8000 units on dialysis. #Renal Osteodystrophy: normal Ca, hyperphosphatemia, continue dietary phosphorus restriction, phosphorus binders phoslo 2001 mg with meals Adjust medications as per hemodialysis Plan of care discussed with the primary attending physician and concurs with the above plan Thanks for letting me participate in this patient's care. Oscar Burris MD Associate nephrology * Diane Arreola DO - 10/10/2024 2:31 PM EDT PROGRESS NOTE - CARDIOLOGY [facility] [place]-[address] [address] Name: Candi Finley Location: [facility] H879/A Date: 10/10/2024 Time: 2:31 PM Overnight Events: No acute events overnight. She did need oxy 5 mg once for the pain where the pacemaker was placed. Subjective: This morning, patient reports that she is doing okay.She denies any lightheadedness, chest pain, abdominal pain, nausea or vomiting. Objective: Vital Signs: Blood Pressure: 99/77 mmHg Last 12H: Most Recent Systolic BP Av.5 mmHg Min: 94 mmHg Max: 120 mmHg Pulse: 84 Last 12H: Pulse Av Min: 60 Max: 84 Temperature: 35.7 °C (96.3 °F) Last 12H: Most Recent Temperature Av.72 C Min: 35.72 C Max: 35.72 C Respiratory Rate: 18 O2 Saturation: 97 % Intake & Output: Intake/Output Summary (Last 24 hours) at 10/10/2024 1431 Last data filed at 10/10/2024 1300 Gross per 24 hour Intake 840 ml Output 100 ml Net 740 ml Physical Examination: General: no acute distress, appears comfortable sitting in chair at bedside Head: atraumatic, normocephalic Neck: supple, trachea midline Cardio: regular rate and rhythm. Normal S1/S2. Respiratory: no signs of respiratory distress. Clear to auscultation bilaterally. No rales, rhonchior wheezes Abdomen: soft, nontender, nondistended. No CVA tenderness MSK: no edema or erythema. ICD insertion site and left chest tender to palpation but without palpable hematoma. Lidocaine patch over site Left forearm with improvement in erythema and edema but shrimp peeling machine tender to palpation Skin: warm, dry, intact. Nailbeds pink with no cyanosis Neuro: Alert and oriented x3, no focal deficits appreciated Psych: normal affect, appropriate Laboratory Values: reviewed Chemistry Panel: Lab results within last 7 days (see chart for full results) Units 10/09/24 0507 10/08/24 2034 10/08/24 0327 10/07/24 1644 10/07/24 0415 10/06/24 1603 10/06/24 0410 10/05/24 1715 SODIUM mmol/L 134* 130* 133* 132* 131* 133* 130* 134* POTASSIUM mmol/L 4.5 4.0 5.2* 5.2* 4.7 4.9 -- 4.6 CHLORIDE mmol/L 94* 92* 91* 91* 91* 91* 89* 91* CO2 mmol/L 27 25 25 24 25 25 27 28 EGFR mL/min 8* 9* 4* 5* 5* 6* 6* 7* BUN mg/dL 26* 24* 52* 46* 42* 38* 36* 26* CREATININE mg/dL 5.7* 5.1* 9.2* 8.7* 8.1* 7.5* 6.6* 6.1* GLUCOSE mg/dL 120 263* 169* 124* 149* 136* 228* 200* CALCIUM mg/dL 9.1 9.0 8.8 8.5 8.8 9.6 9.6 9.9 Magnesium mg/dL 2.2 2.1 2.5 2.3 2.3 2.2 2.2 2.2 Phosphorus mg/dL 5.6* -- 7.3* -- 5.9* -- 6.2* -- ANION GAP mmol/L 13 13 17* 17* 15 17* 14 15 Complete Blood Count: Lab results within last 7 days (see chart for full results) Units 10/09/24 0507 10/08/24 0327 10/07/24 0415 10/06/24 0410 WBC K/uL 9.57 10.76 12.17* 9.59 HGB g/dL 8.2* 8.3* 8.4* 8.6* HCT % 26.7* 27.9* 27.9* 28.4* PLT K/uL 194 217 238 261 MCV fL 98.5 100.0 99.6 100.0 Coagulation Studies: Lab results within last 7 days (see chart for full results) Units 10/06/24 0410 Prothrombin Time seconds 14.0 INR 1.1 Radiographic Studies: reviewed. XR CHEST 2 VIEWS Result Date: 10/09/2024 [...] No discernible pneumothorax. 2. Small pleural effusions. Impression and Plan: Principal Problem: Ventricular tachycardia, non-sustained (HCC) (POA: Yes) Active Problems: Type 2 diabetes mellitus with hemoglobin A1c goal of less than 7.0% (HCC) (POA: Yes) Chronic diastolic heart failure (HCC) (POA: Yes) End stage renal disease on dialysis (HCC) (POA: Yes) Arterial hypotension (POA: Unknown) Anemia of renal disease (POA: Unknown) Mitral stenosis with insufficiency (POA: Unknown) Resolved Problems: * No resolved hospital problems. * POA = Present On Admission Candi Finley is a 63 year old female with PMHx of sick sinus syndrome s/p dual-chamber pacemaker, HFpEF, ESRD on HD MWF presented with multiple syncopal episodes and found to have intermittent non-sustained polymorphic ventricular tachycardia. Transferred from [facility] for further management. Acute hypoxic respiratory failure Severe mitral regurgitation Etiology of her acute hypoxic respiratory failure likely flash pulmonary edema following small volume resuscitation in setting of her severe mitral regurgitation. Pulmonary edema seen on chest x-ray.Less concerned for pneumonia given lack of clinical correlation with chest x-ray findings. Patient examining more euvolemic. Patient was still SOB walking in the halls so we will obtain amb ox and consider MOUNA for further inpatient evaluation of mitral regurgitation. - weaned off oxygen to room air - ambulatory oxygen - we will consider MOUNA tomorrow, we will keep NPO in preparation Non-sustained polymorphic VT Syncope No episodes of VT or syncope since admission. EP placed ICD on 10/07/2024. - telemetry monitoring - BMP, Mag q12h. Goal K>4, Mag>2 - avoid QT prolonging agents Coronary Artery Disease 50% LAD lesion (not hemodynamically significant with FFR 0.83) - continue BACKPACKERS MANAGER aspirin, atorvastatin HFpEF HTN - holding BACKPACKERS MANAGER carvedilol 12.5mg and amlodipine in setting of asymptomatic hypotension ESRD on HD MWF (last session 10/04/24) - Nephrology consulted, appreciate recommendations - last HD session 10/08/24 - we will try midodrine 5 mg 30 minutes prior to next HD session with another 5 mg to be given shelter through HD session if needed - continue BACKPACKERS MANAGER phos binder UA with pyuria and bacteruria at [facility] Patient with atypical symptoms that have resolved. No convincing evidence of urinary tract infection, therefore will not treat with antibiotics. - monitor off antibiotics Rhinovirus (positive 10/04 at [facility]) - continue supportive care - droplet precautions Insulin-dependent type 2 diabetes (A1c 7.7 05/07/24) - MDSSI - lantus 5 units AM (BACKPACKERS MANAGER 10 units) MINISTERIO: CPAP at night Depression: Continue BACKPACKERS MANAGER citalopram Diabetic neuropathy: Continue BACKPACKERS MANAGER gabapentin Hypothyroidism: Continue BACKPACKERS MANAGER levothyroxine Misc: Bowel Regimen: MiraLax VTE Prophylaxis: heparin 7500u q8H and SCBs & TEDS Code Status: Full Code Disposition: 2 days or more Patient will be seen and examined by attending physician, MD Diane Washburn DO Resident, Internal Medicine - [employer] Cosigned by Kaden Arana MD at 10/10/2024 4:02 PM EDT Associated attestation - Kaden Arana MD - 10/10/2024 4:02 PM EDT I saw and evaluated the patient today. I have reviewed the resident/fellow physician note and agree. 1- POD#3 AICD for NSVT, polymorphic 2- Severe Mitral regurgitation & MS 3- Rhinovirus (+) 4- ESRD on HD (M, W, F) 5- DM 6- HFpEF 7- Jody en Y Bypass 8- MINISTERIO on CPAP 9- Hypothyroidism RECOMMENDATIONS: 1- LUE pain feels better with Oxycodone and lidocaine patch. 4/10 pain today. 2- Euvolemic on physical exam today. CXR looks wet. BP trending low last 24hrs so cut back antihypertensives. States she feels quite SOB upon short ambulation. Observe today and adjust antihtn regimen. 3- Check BNP in am. 4- Her MV is heavily calcified w mild MS. Also has likely severe MR implying mixed valvular disease. Will need MOUNA as next step in evaluation of her MV, will coordinate for dialysis tomorrow and MOUNA postdialysis. 5- Continue ASA/Lipitor/low dose Coreg. Holding Norvasc/Losartan. Started on Midodrine for dialysisas per Neph. Discussed with patient and , they are in agreement with above plan. * Oscar Burris MD - 10/10/2024 12:28 PM EDT PROGRESS NOTE - Nephrology [facility] [place]-[address] [address] Name: Candi Finley Location: [place] [id number] Overview/ Follow up: ESRD on iHD MWF via RUE AVF at [place], DM type 2, proliferative diabetic retinopathy, HTN, HFpEF, MINISTERIO on CPAP, endometrial cancer presented with syncope, non-sustained polymorphic VT, s/p cardiac cath 10/06, 50% LAD lesion, s/p AICD placement Subjective: No acute events overnight No chest pain, dyspnea, abdominal pain, fevers , chills, Denied dizziness on ambulation Review of Systems:all systems were reviewed and negative except as above Prior medical notes/PMH/PSH/FH/SH: reviewed Allergies: reviewed Current medication list reviewed. Current Facility-Administered Medications Medication Dose Route Frequency Provider Carvedilol (Coreg) tab 3.125 mg 3.125 mg Oral BID (AM/PM meals) Surampudi, Diane, DO Carvedilol (Coreg) tab 3.125 mg 3.125 mg Oral Once Surampudi, Diane, DO hEParin inj 5,000 Units 5,000 Units Subcutaneous Q8H Marcell Garsia DO oxyCODONE (Oxy IR) tab 5 mg 5 mg Oral Q6H PRN Roni Elder MD Lidocaine (Aspercreme) 4 % patch 1 Patch 1 Patch Transdermal Daily(AM) Marcell Garsia DO insulin aspart (NovoLOG) inj Subcutaneous With Meals and HS Steffen Kidd MD epoetin janice-epbx ESRD (Retacrit) 12335 UNIT/ML inj 8,000 Units 8,000 Units IV Push On dialysis Atif,Barbie Sánchez PA-C levothyroxine (Levoxyl) tab 100 mcg 100 mcg Oral Daily 0630 Marcell Garsia DO Polyethylene Glycol 3350 (Miralax) oral powder 17 g 1 Packet Oral Daily(AM) Marcell Garsia DO aspirin chew tab 81 mg 81 mg Oral HS Marcell Garsia DO atorvaSTATin (Lipitor) tab 40 mg 40 mg Oral Q 1700 Marcell Garsia DO calcium acetate (Phos Binder) (Phoslo) cap/tab 2,001 mg 2,001 mg Oral With meals Marcell Garsia DO citalopram (CeleXA) tab 20 mg 20 mg Oral Daily(AM) Marcell Garsia DO dextrose 50% inj 25 mL 25 mL IV Push PRN Marcell Garsia DO dextrose 50% inj 50 mL 50 mL IV Push PRN Marcell Garsia DO Gabapentin (Neurontin) cap 300 mg 300 mg Oral QHS Steffen Kidd MD glucagon (Glucagen) inj 1 mg 1 mg Intramuscular PRN Marcell Garsia DO Glucose (Glutose 15) 40 % gel 15 g of glucose 15 g of glucose Oral PRN Marcell Garsia DO Glucose (Glutose 15) 40 % gel 30 g of glucose 30 g of glucose Oral PRN Marcell Garsia DO glucose chew tab 16 g 16 g Oral PRN Marcell Garsia DO Insulin Glargine (Lantus) inj 5 Units 5 Units Subcutaneous AM Insulin Marcell Garsia DO Objective/Physical Examination Most Recent Vital Signs: BP: 109 mmHg/96 mmHg (10/10/24 1020) Pulse: 60 (10/10/24 0243) Resp: 18 (10/10/24 1020) Temp: 35.72 C (10/10/24 0243) Temp Summary: Temp Min: 35.7 °C (96.3 °F) Max: 36.7 °C (98.1 °F) SpO2: 97 % (10/10/24 1020) O2 flow rate: 2 L/MIN (10/10/24 0735) Supplemental O2 Delivery: Room Air, None (10/10/24 1020) Vital Signs last 24 Hours: Systolic BP: Most Recent Systolic BP Av.6 mmHg Min: 94 mmHg Max: 125 mmHg Temperature: Most Recent Temperature Av.3 C Min: 35.72 C Max: 36.72 C Pulse: Pulse Av.4 Min: 60 Max: 76 Respirations: Resp Av.3 Min: 12 Max: 18 SpO2: SpO2 Av.7 % Min: 97 % Max: 100 % Body mass index is 40.55 kg/m². Intake/Output Summary (Last 24 hours) at 10/10/2024 1228 Last data filed at 10/10/2024 0800 Gross per 24 hour Intake 720 ml Output 200 ml Net 520 ml Constitutional: No acute respiratory distress. saturating 97% in room air HEENT: NCAT CV: regular rate, regular rhythm, AICD in situ Chest: Decreased air entry bibasal with a scattered crackles, no wheezing Abdomen: soft, no tenderness, Extremities: no LEs edema. Skin: warm, dry Neuro: awake, alert, conversation appropriate Dialysis Access: Right upper extremity AV fistula with good thrill Studies: Last Labs and other studies reviewed with pertinent findings noted below: Cr 5.7 with BUN 26 K 4.5 HCO3 27 Ca 9.1 Phos 5.6 Hb 8.2 WBC 9.5K Rhinovirus positive 10/04/24 at [facility] Imaging : Personally reviewed and interpreted pertinent images ECHO 10/06: LVEF 55% Impression and Plan: #Syncope with Non-sustained polymorphic VT >s/p AICD placement 10/07 #ESRD no urgent requirement for dialysis today, next dialysis tomorrow if stays in hospital keepingon maintenance HD as MWF schedule, midodrine 5 mg half an hour before and 5 mg shelter through dialysis as needed for intra dialytic hypotension. Discuss with the patient to touch base with the hourly manager in the dialysis unit regarding adjusting the dose of midodrine as needed, keeping on torsemide 100 mg daily #Acid base and Electrolytes: Normal potassium and bicarbonate, mild hyponatremia will be adjusted with dialysis #Anemi : QUINCY 8000 units on dialysis. #Renal Osteodystrophy: normal Ca, hyperphosphatemia, continue dietary phosphorus restriction, phosphorus binders phoslo 2001 mg with meals Adjust medications as per hemodialysis Plan of care discussed with the primary attending physician and concurs with the above plan Thanks for letting me participate in this patient's care. Oscar Burris MD Associate nephrology * Oscar Burris MD - 10/09/2024 1:09 PM EDT PROGRESS NOTE - Nephrology [facility] [place]-[address] [address] Name: Candi Finley [facility]: ESRD on iHD MWF via RUE AVF at [place], DM type 2, proliferative diabetic retinopathy, HTN, HFpEF, MINISTERIO on CPAP, endometrial cancer presented with syncope, non-sustained polymorphic VT, s/p cardiac cath 10/06, 50% LAD lesion, s/p AICD placement Subjective: No acute events overnight Dialysis yesterday, developed hypotension, no ultrafiltration No chest pain, dyspnea, abdominal pain, fevers , chills, Feeling lethargic Denied urinary symptoms Chest x-ray yesterday evening new has new opacities in the right perihilar suggestive of infection also pulmonary congestion Afebrile, no leukocytosis Review of Systems:all systems were reviewed and negative except as above Prior medical notes/PMH/PSH/FH/SH: reviewed Allergies: reviewed Current medication list reviewed. Current Facility-Administered Medications Medication Dose Route Frequency Provider Acetaminophen (Tylenol) tab 650 mg 650 mg Oral Q6H Marcell Garsia DO Lidocaine (Aspercreme) 4 % patch 1 Patch 1 Patch Transdermal Daily(AM) Marcell Garsia DO insulin aspart (NovoLOG) inj Subcutaneous With Meals and HS Steffen Kidd MD epoetin janice-epbx ESRD (Retacrit) 91630 UNIT/ML inj 8,000 Units 8,000 Units IV Push On dialysis Barbie Srivastava PA-C levothyroxine (Levoxyl) tab 100 mcg 100 mcg Oral Daily 0630 Marcell Garsia DO Polyethylene Glycol 3350 (Miralax) oral powder 17 g 1 Packet Oral Daily(AM) Marcell Garsia DO aspirin chew tab 81 mg 81 mg Oral HS Marcell Garsia DO atorvaSTATin (Lipitor) tab 40 mg 40 mg Oral Q 1700 Marcell Garsia DO calcium acetate (Phos Binder) (Phoslo) cap/tab 2,001 mg 2,001 mg Oral With meals Marcell Garsia DO citalopram (CeleXA) tab 20 mg 20 mg Oral Daily(AM) Marcell Garsia DO dextrose 50% inj 25 mL 25 mL IV Push PRN Marcell Garsia DO dextrose 50% inj 50 mL 50 mL IV Push PRN Marcell Garsia DO Gabapentin (Neurontin) cap 300 mg 300 mg Oral QHS Steffen Kidd MD glucagon (Glucagen) inj 1 mg 1 mg Intramuscular PRN Marcell Garsia DO Glucose (Glutose 15) 40 % gel 15 g of glucose 15 g of glucose Oral PRN Marcell Garsia DO Glucose (Glutose 15) 40 % gel 30 g of glucose 30 g of glucose Oral PRN Marcell Garsia DO glucose chew tab 16 g 16 g Oral PRN Marcell Garsia DO Insulin Glargine (Lantus) inj 5 Units 5 Units Subcutaneous AM Insulin Marcell Garsia DO Objective/Physical Examination Most Recent Vital Signs: BP: 108 mmHg/59 mmHg (10/09/24 1200) Pulse: 71 (10/09/24 1200) Resp: 16 (10/09/24 0800) Temp: 37.11 C (10/09/24 1200) Temp Summary: Temp Min: 36 °C (96.8 °F) Max: 37.2 °C (99 °F) SpO2: 99 % (10/09/24 1200) O2 flow rate: 2 L/MIN (10/09/241199) Supplemental O2 Delivery: Nasal Cannula (10/09/241199) Vital Signs last 24 Hours: Systolic BP: Most Recent Systolic BP Av.1 mmHg Min: 51 mmHg Max: 173 mmHg Temperature: Most Recent Temperature Av.9 C Min: 36 C Max: 37.22 C Pulse: Pulse Av.1 Min: 58 Max: 86 Respirations: Resp Av.8 Min: 11 Max: 22 SpO2: SpO2 Av.9 % Min: 93 % Max: 99 % Body mass index is 39.68 kg/m². Intake/Output Summary (Last 24 hours) at 10/09/2024 1309 Last data filed at 10/09/2024 0800 Gross per 24 hour Intake 1180 ml Output 150 ml Net 1030 ml Constitutional: No acute respiratory distress. Nasal cannula oxygen 2 L saturating 99% HEENT: NCAT CV: regular rate, regular rhythm, AICD in situ Chest: Decreased air entry bibasal with a scattered crackles, no wheezing Abdomen: soft, no tenderness, Extremities: no LEs edema. Mild tenderness in the left arm Skin: warm, dry Neuro: awake, alert, conversation appropriate Dialysis Access: Right upper extremity AV fistula with good thrill Studies:Today's Labs and other studies reviewed with pertinent findings noted below: Cr 5.7 with BUN 26 K 4.5 HCO3 27 Ca 9.1 Phos 5.6 Hb 8.2 WBC 9.5K Rhinovirus positive 10/04/24 at [facility] Imaging : Personally reviewed and interpreted pertinent images ECHO 10/06: LVEF 55% Impression and Plan: #Syncope with Non-sustained polymorphic VT >s/p AICD placement 10/07 #ESRD no urgent requirement for dialysis today, keeping on maintenance HD as MWF schedule, will assess daily if needed any additional dialysis, midodrine 5 mg half an hour before and 5 mg shelter through dialysis as needed for intra dialytic hypotension. Agree with trial with diuretics today, keeping on torsemide 100 mg daily #Acid base and Electrolytes: Normal potassium and bicarbonate, mild hyponatremia will be adjusted with dialysis #Anemi : QUINCY 8000 units on dialysis. #Renal Osteodystrophy: normal Ca, hyperphosphatemia, continue dietary phosphorus restriction, phosphorus binders phoslo 2001 mg with meals Adjust medications as per hemodialysis Plan of care discussed with the primary attending physician and concurs with the above plan Thanks for letting me participate in this patient's care. Oscar Burris MD Associate nephrology * Marcell Garsia, - 10/09/2024 6:04 AM EDT PROGRESS NOTE - CARDIOLOGY [facility] [place]-[address] [address] Name: Candi Finley Location: [facility] H763/A Date: 10/09/2024 Time: 6:04 AM Overnight Events: Patient with episode of dizziness and reported hypotension at the end of her dialysis session. She was lied flat and given back 250cc of fluid with improvement in BP. She then developed shortness of breath and hypoxemia requiring up to 6 L of oxygen. Chest x-ray showed concerns for pulmonary edema. Subjective: This morning, patient reports mild shortness of breath that is improved compared to last night. Shewore her CPAP most of the night. She denies any lightheadedness, chest pain, abdominal pain, nauseaor vomiting. Objective: Vital Signs: Blood Pressure: 119/57 mmHg Last 12H: Most Recent Systolic BP Av.3 mmHg Min: 100 mmHg Max: 159 mmHg Pulse: 60 Last 12H: Pulse Av.4 Min: 60 Max: 86 Temperature: 36.7 °C (98.1 °F) Last 12H: Most Recent Temperature Av C Min: 36.72 C Max: 37.22 C Respiratory Rate: 15 O2 Saturation: 98 % Intake & Output: Intake/Output Summary (Last 24 hours) at 10/09/2024 0604 Last data filed at 10/08/20241999 Gross per 24 hour Intake 1180 ml Output -- Net 1180 ml Physical Examination: General: no acute distress, appears comfortable sitting in chair at bedside Head: atraumatic, normocephalic Neck: supple, trachea midline Cardio: regular rate and rhythm. Normal S1/S2. Respiratory: no signs of respiratory distress. Clear to auscultation bilaterally. No rales, rhonchior wheezes Abdomen: soft, nontender, nondistended. No CVA tenderness Lower Extremities: no edema or erythema. Skin: warm, dry, intact. Nailbeds pink with no cyanosis Neuro: Alert and oriented x3, no focal deficits appreciated Psych: normal affect, appropriate ICD insertion site and left chest tender to palpation but without palpable hematoma Left forearm with improvement in erythema and edema but shrimp peeling machine tender to palpation Laboratory Values: reviewed Creatinine 5.7 Potassium 4.5 Magnesium 2.2 Sodium 134 Hemoglobin 8.2 No leukocytosis Radiographic & Other Studies: reviewed Impression and Plan: Principal Problem: Ventricular tachycardia, non-sustained (HCC) (POA: Yes) Active Problems: Type 2 diabetes mellitus with hemoglobin A1c goal of less than 7.0% (HCC) (POA: Yes) Chronic diastolic heart failure (HCC) (POA: Yes) End stage renal disease on dialysis (HCC) (POA: Yes) Arterial hypotension (POA: Unknown) Anemia of renal disease (POA: Unknown) Resolved Problems: * No resolved hospital problems. * POA = Present On Admission Candi Finley is a 63 year old female with PMHx of sick sinus syndrome s/p dual-chamber pacemaker, HFpEF, ESRD on HD MWF presented with multiple syncopal episodes and found to have intermittent non-sustained polymorphic ventricular tachycardia. Transferred from [facility] for further management. Acute hypoxic respiratory failure Severe mitral regurgitation Etiology of her acute hypoxic respiratory failure likely flash pulmonary edema following small volume resuscitation in setting of her severe mitral regurgitation. Pulmonary edema seen on chest x-ray.Chest x-ray also notes possible right-sided pneumonia, however patient has no leukocytosis, is afebrile and demonstrates no other signs of infection. Patient with improvement in oxygen requirement this morning to 2 L. Plan: - we will trial diuresis as patient still makes some urine - 200 mg IV Lasix now - wean oxygen as tolerated Non-sustained polymorphic VT Syncope No episodes of VT or syncope since admission. EP placed ICD on 10/07/2024. - telemetry monitoring - BMP, Mag q12h. Goal K>4, Mag>2 - avoid QT prolonging agents Coronary Artery Disease 50% LAD lesion (not hemodynamically significant with FFR 0.83) - continue BACKPACKERS MANAGER aspirin, atorvastatin HFpEF HTN - holding BACKPACKERS MANAGER carvedilol 12.5mg and amlodipine in setting of asymptomatic hypotension ESRD on HD MWF (last session 10/04/24) - Nephrology consulted - HD session 10/08/24 - Nephrology would like to keep patient til Friday to perform dialysis prior to discharge - continue BACKPACKERS MANAGER phos binder UA with pyuria and bacteruria at [facility] Patient with atypical symptoms that have resolved. No convincing evidence of urinary tract infection, therefore will not treat with antibiotics. - monitor off antibiotics Rhinovirus (positive 3/17 at [facility]) - continue supportive care - droplet precautions Insulin-dependent type 2 diabetes (A1c 7.7 05/07/24) - MDSSI - lantus 5 units AM (BACKPACKERS MANAGER 10 units) MINISTERIO: CPAP at night Depression: Continue BACKPACKERS MANAGER citalopram Diabetic neuropathy: Continue BACKPACKERS MANAGER gabapentin Hypothyroidism: Continue BACKPACKERS MANAGER levothyroxine Misc: Bowel Regimen: MiraLax VTE Prophylaxis: heparin 7500u q8H and SCBs & TEDS Code Status: Full Code Disposition: 2 days or more Patient will be seen and examined by attending physician, MD Marcell Washburn DO Resident, Internal Medicine Cosigned by Kaden Arana MD at 10/09/2024 2:08 PM EDT Associated attestation - Kaden Arana MD - 10/09/2024 2:08 PM EDT I saw and evaluated the patient today. I have reviewed the resident/fellow physician note and agree. 1- POD#2 AICD for NSVT, polymorphic 2- Severe Mitral regurgitation 3- Rhinovirus (+) 4- ESRD on HD (M, W, F) 5- DM 6- HFpEF 7- Jody en Y Bypass 8- MINISTERIO on CPAP 9- Hypothyroidism RECOMMENDATIONS: 1- LUE pain feels better with Oxycodone and lidocaine patch. 4/10 pain today. 2- Euvolemic on exam today. BP fluctuant last 24hrs. Observe today and adjust meds accordingly to steady state given underlying hypotension and hypertensive episodes. 3- Check BNP and PA/Lateral CXR in am. 4- Her MV is heavily calcified. Also has likely severe MR implying mixed valvular disease. Will need MOUNA as next step in evaluation of her MV. Coordinate best timing of this based on her clinical course. 5- Continue ASA/Lipitor. Holding Norvasc/Losartan and Coreg at this time. Discussed with patient and . * Marcell Garsia DO - 10/08/2024 5:45 PM EDT PROGRESS NOTE - CARDIOLOGY [address] [id number] Name: Candi Finley Location: [facility] [place] H763/A Date: 10/08/2024 Time: 5:45 PM Overnight Events: No acute events overnight. Subjective: Patient reports severe pain at her ICD insertion site and for left forearm where her amiodarone infiltrated. She denies lightheadedness, chest pain, shortness of breath abdominal pain, back pain, urinary symptoms. Objective: Vital Signs: Blood Pressure: 155/59 mmHg Last 12H: Most Recent Systolic BP Av mmHg Min: 99 mmHg Max: 156 mmHg Pulse: 69 Last 12H: Pulse Av.4 Min: 58 Max: 69 Temperature: 36 °C (96.8 °F) Last 12H: Most Recent Temperature Av.1 C Min: 36 C Max: 36.28 C Respiratory Rate: 18 O2 Saturation: 96 % Intake & Output: Intake/Output Summary (Last 24 hours) at 10/08/2024 1745 Last data filed at 10/08/2024 0600 Gross per 24 hour Intake 480 ml Output 100 ml Net 380 ml Physical Examination: General: no acute distress, appears comfortable sitting in chair at bedside Head: atraumatic, normocephalic Neck: supple, trachea midline Cardio: regular rate and rhythm. Normal S1/S2. Respiratory: no signs of respiratory distress. Clear to auscultation bilaterally. No rales, rhonchior wheezes Abdomen: soft, nontender, nondistended. No CVA tenderness Lower Extremities: no edema or erythema. Skin: warm, dry, intact. Nailbeds pink with no cyanosis Neuro: Alert and oriented x3, no focal deficits appreciated Psych: normal affect, appropriate ICD insertion site and left chest tender to palpation but without palpable hematoma Left forearm with improvement in erythema and edema but shrimp peeling machine tender to palpation Laboratory Values: reviewed Creatinine 9.2 Potassium 5.2 Magnesium 0.5 Sodium 133 Hemoglobin 8.3 Radiographic & Other Studies: reviewed Impression and Plan: Principal Problem: Ventricular tachycardia, non-sustained (HCC) (POA: Yes) Active Problems: Type 2 diabetes mellitus with hemoglobin A1c goal of less than 7.0% (HCC) (POA: Yes) Chronic diastolic heart failure (HCC) (POA: Yes) End stage renal disease on dialysis (HCC) (POA: Yes) Arterial hypotension (POA: Unknown) Anemia of renal disease (POA: Unknown) Resolved Problems: * No resolved hospital problems. * POA = Present On Admission Candi Finley is a 63 year old female with PMHx of sick sinus syndrome s/p dual-chamber pacemaker, HFpEF, ESRD on HD MWF presented with multiple syncopal episodes and found to have intermittent non-sustained polymorphic ventricular tachycardia. Transferred from [facility] for further management. Non-sustained polymorphic VT Syncope No episodes of VT or syncope since admission. EP placed ICD on 10/07/2024. - telemetry monitoring - BMP, Mag q12h. Goal K>4, Mag>2 - avoid QT prolonging agents Coronary Artery Disease 50% LAD lesion (not hemodynamically significant with FFR 0.83) - continue BACKPACKERS MANAGER aspirin, atorvastatin HFpEF HTN - holding BACKPACKERS MANAGER carvedilol 12.5mg and amlodipine in setting of asymptomatic hypotension ESRD on HD MWF (last session 10/04/24) - Nephrology consulted - HD session today - continue BACKPACKERS MANAGER phos binder UA with pyuria and bacteruria at [facility] Patient with atypical symptoms that have resolved. No convincing evidence of urinary tract infection, therefore will not treat with antibiotics. - monitor off antibiotics Rhinovirus (positive 10/04 at [facility]) - continue supportive care - droplet precautions Insulin-dependent type 2 diabetes (A1c 7.7 05/07/24) - MDSSI - lantus 5 units AM (BACKPACKERS MANAGER 10 units) MINISTERIO: CPAP at night Depression: Continue BACKPACKERS MANAGER citalopram Diabetic neuropathy: Continue BACKPACKERS MANAGER gabapentin Hypothyroidism: Continue BACKPACKERS MANAGER levothyroxine Misc: Bowel Regimen: MiraLax VTE Prophylaxis: heparin 7500u q8H and SCBs & TEDS Code Status: Full Code Disposition: 2 days or more Patient will be seen and examined by attending physician, MD Marcell Washburn DO Resident, Internal Medicine Cosigned by Kaden Arana MD at 10/08/2024 5:54 PM EDT Associated attestation - Kaden Arana MD - 10/08/2024 5:54 PM EDT I saw and evaluated the patient today. I have reviewed the resident/fellow physician note and agree. * Oscar Burris MD - 10/08/2024 10:49 AM EDT PROGRESS NOTE - Nephrology [facility] [place]-[address] [id number] Name: Candi Finley Location: [facility] [place] H763/A Overview/ Follow up: ESRD on iHD MWF via RUE AVF at [place], DM type 2, proliferative diabetic retinopathy, HTN, HFpEF, MINISTERIO on CPAP, endometrial cancer presented with syncope, non-sustained polymorphic VT, s/p cardiac cath 10/06, 50% LAD lesion, s/p AICD placement Subjective: No acute events overnight S/p - biventricular ICD yesterday No chest pain, dyspnea, nausea or vomiting, abdominal pain, fevers , chills, Denied urinary symptoms Review of Systems:all systems were reviewed and negative except as above Prior medical notes/PMH/PSH/FH/SH: reviewed Allergies: reviewed Current medication list reviewed. Current Facility-Administered Medications Medication Dose Route Frequency Provider Acetaminophen (Tylenol) tab 650 mg 650 mg Oral Q6H Marcell Garsia DO Lidocaine (Aspercreme) 4 % patch 1 Patch 1 Patch Transdermal Daily(AM) Marcell Garsia DO insulin aspart (NovoLOG) inj Subcutaneous With Meals and HS Steffen Kidd MD epoetin janice-epbx ESRD (Retacrit) 26219 UNIT/ML inj 8,000 Units 8,000 Units IV Push On dialysis Atif,Barbie Sánchez PA-C levothyroxine (Levoxyl) tab 100 mcg 100 mcg Oral Daily 0630 Marcell Garsia DO Polyethylene Glycol 3350 (Miralax) oral powder 17 g 1 Packet Oral Daily(AM) Marcell Garsia DO aspirin chew tab 81 mg 81 mg Oral HS Marcell Garsia DO atorvaSTATin (Lipitor) tab 40 mg 40 mg Oral Q 1700 Marcell Garsia DO calcium acetate (Phos Binder) (Phoslo) cap/tab 2,001 mg 2,001 mg Oral With meals Marcell Garsia DO citalopram (CeleXA) tab 20 mg 20 mg Oral Daily(AM) Marcell Garsia DO dextrose 50% inj 25 mL 25 mL IV Push PRN Marcell Garsia DO dextrose 50% inj 50 mL 50 mL IV Push PRN Marcell Garsia DO Gabapentin (Neurontin) cap 300 mg 300 mg Oral QHS Steffen Kidd MD glucagon (Glucagen) inj 1 mg 1 mg Intramuscular PRN Marcell Garsia DO Glucose (Glutose 15) 40 % gel 15 g of glucose 15 g of glucose Oral PRN Marcell Garsia DO Glucose (Glutose 15) 40 % gel 30 g of glucose 30 g of glucose Oral PRN Marcell Garsia DO glucose chew tab 16 g 16 g Oral PRN Marcell Garsia DO Insulin Glargine (Lantus) inj 5 Units 5 Units Subcutaneous AM Insulin Marcell Garsia DO Objective/Physical Examination Most Recent Vital Signs: BP: 109 mmHg/46 mmHg (10/08/24 1000) Pulse: 60 (10/08/24 0800) Resp: 11 (10/08/24 0800) Temp: 36.11 C (10/08/24 0400) Temp Summary: Temp Min: 36 °C (96.8 °F) Max: 37 °C (98.6 °F) SpO2: 94 % (10/08/24 0800) O2 flow rate: 2 L/MIN (10/08/24 0600) Supplemental O2 Delivery: Room Air, None (10/08/24 0845) Vital Signs last 24 Hours: Systolic BP: Most Recent Systolic BP Av.2 mmHg Min: 82 mmHg Max: 133 mmHg Temperature: Most Recent Temperature Av.3 C Min: 36 C Max: 37 C Pulse: Pulse Av.3 Min: 60 Max: 68 Respirations: Resp Av.8 Min: 7 Max: 18 SpO2: SpO2 Av % Min: 91 % Max: 100 % Body mass index is 39.9 kg/m². Intake/Output Summary (Last 24 hours) at 10/08/2024 1049 Last data filed at 10/08/2024 0600 Gross per 24 hour Intake 840 ml Output 250 ml Net 590 ml Constitutional: No acute respiratory distress. HEENT: NCAT CV: regular rate, regular rhythm Chest: no crackles or wheezing Abdomen: soft, no tenderness, Extremities: no LEs edema.infiltrated left arm Skin: warm, dry Neuro: awake, alert, conversation appropriate Dialysis Access: Right upper extremity AV fistula with good thrill Studies:Today's Labs and other studies reviewed with pertinent findings noted below: Cr 9.2 with BUN 52 K 5.2 HCO3 25 Ca 8.8 Phos 7.9 Hb 8.3 Rhinovirus positive 10/04/24 at [facility] Imaging : Personally reviewed and interpreted pertinent images ECHO 10/06: LVEF 55% Impression and Plan: #Syncope with Non-sustained polymorphic VT >s/p AICD placement 10/07 #ESRD will do dialysis today, net even, if develop hypotension SBP<90, will add midodrine as needed during and half way through dialysis next session #Acid base and Electrolytes: mild Hyperkalemia and hyponatremia will be adjusted with dialysis #Anemi : QUINCY 8000 units on dialysis. #Renal Osteodystrophy: normal Ca, hyperphosphatemia, continue dietary phosphorus restriction, phosphorus binders phoslo 2001 mg with meals Adjust medications as per hemodialysis Plan of care discussed with the primary attending physician and concurs with the above plan Thanks for letting me participate in this patient's care. Oscar Burris MD Associate nephrology * Oscar Burris MD - 10/07/2024 4:30 PM EDT PROGRESS NOTE - Nephrology [facility] [place]-[address] [address] Name: Candi Finley Location: [facility] H7/A Overview/ Follow up: ESRD on iHD MWF via RUE AVF at [place], DM type 2, proliferative diabetic retinopathy, HTN, HFpEF, MINISTERIO on CPAP, endometrial cancer presented with syncope, non-sustained polymorphic VT, s/p cardiac cath 10/06, 50% LAD lesion, scheduled for AICD placement Subjective: No acute events overnight Could not tolerate dialysis today with hypotension No chest pain, dyspneea, nausea or vomiting, abdominal pain, fevers , chills, Denied urinary symptoms Scheduled for ICD placement today Review of Systems:all systems were reviewed and negative except as above Prior medical notes/PMH/PSH/FH/SH: reviewed Allergies: reviewed Current medication list reviewed. Current Facility-Administered Medications Medication Dose Route Frequency Provider amiodarone (Cordarone) tab 200 mg 200 mg Oral With meals Honorio Alvarez DO Acetaminophen (Tylenol) tab 650 mg 650 mg Oral Q4H PRN Marcell Garsia DO epoetin janice-epbx ESRD (Retacrit) 52228 UNIT/ML inj 8,000 Units 8,000 Units IV Push On dialysis Barbie Srivastava PA-C insulin aspart (NovoLOG) inj Subcutaneous Q6H Marcell Garsia DO levothyroxine (Levoxyl) tab 100 mcg 100 mcg Oral Daily 0630 Marcell Garsia DO Polyethylene Glycol 3350 (Miralax) oral powder 17 g 1 Packet Oral Daily(AM) Marcell Garsia DO aspirin chew tab 81 mg 81 mg Oral HS Marcell Garsia DO atorvaSTATin (Lipitor) tab 40 mg 40 mg Oral Q 1700 Marcell Garsia DO calcium acetate (Phos Binder) (Phoslo) cap/tab 2,001 mg 2,001 mg Oral With meals Marcell Garsia DO citalopram (CeleXA) tab 20 mg 20 mg Oral Daily(AM) Marcell Garsia DO dextrose 50% inj 25 mL 25 mL IV Push PRN Marcell Garsia DO dextrose 50% inj 50 mL 50 mL IV Push PRN Marcell Garsia DO Gabapentin (Neurontin) cap 300 mg 300 mg Oral QHS Steffen Kidd MD glucagon (Glucagen) inj 1 mg 1 mg Intramuscular PRN Marcell Garsia DO Glucose (Glutose 15) 40 % gel 15 g of glucose 15 g of glucose Oral PRN Marcell Garsia DO Glucose (Glutose 15) 40 % gel 30 g of glucose 30 g of glucose Oral PRN Marcell Garsia DO glucose chew tab 16 g 16 g Oral PRN Marcell Garsia DO Insulin Glargine (Lantus) inj 5 Units 5 Units Subcutaneous AM Insulin Marcell Garsia DO Objective/Physical Examination Most Recent Vital Signs: BP: 99 mmHg/38 mmHg (10/07/24 1400) Pulse: 62 (10/07/24 1400) Resp: 12 (10/07/24 1400) Temp: 37 C (10/07/24 1200) Temp Summary: Temp Min: 36.3 °C (97.3 °F) Max: 37 °C (98.6 °F) SpO2: 99 % (10/07/24 1400) O2 flow rate: 1 L/MIN (10/07/24 1400) Supplemental O2 Delivery: Nasal Cannula (10/07/241399) Vital Signs last 24 Hours: Systolic BP: Most Recent Systolic BP Av.4 mmHg Min: 84 mmHg Max: 150 mmHg Temperature: Most Recent Temperature Av.6 C Min: 36.28 C Max: 37 C Pulse: Pulse Av.1 Min: 60 Max: 70 Respirations: Resp Av.3 Min: 10 Max: 27 SpO2: SpO2 Av % Min: 90 % Max: 100 % Body mass index is 39.68 kg/m². Intake/Output Summary (Last 24 hours) at 10/07/2024 1631 Last data filed at 10/07/2024 1200 Gross per 24 hour Intake 875.9 ml Output 200 ml Net 675.9 ml Constitutional: No acute respiratory distress. HEENT: NCAT CV: regular rate, regular rhythm Chest: no crackles or wheezing Abdomen: soft, no tenderness, Extremities: no LEs edema. Skin: warm, dry Neuro: awake, alert, conversation appropriate Dialysis Access: Right upper extremity AV fistula with good thrill Studies:Today's Labs and other studies reviewed with pertinent findings noted below: Cr 8.1 with BUN 42 K 4.7 HCO3 25 Ca 8.8 Phos 5.9 Hb 8.4 Rhinovirus positive 10/04/24 at [facility] Imaging : Personally reviewed and interpreted pertinent images ECHO 10/06: LVEF 55% Impression and Plan: #Syncope with Non-sustained polymorphic VT >scheduled for ICD placement today #ESRD not tolerated intermittent hemodialysis today morning, no urgent requirement for restarting renal replacement therapy today,will reassess tomorrow, keeping for intermittent hemodialysis with possible vasopressor support if needed. #Acid base and Electrolytes: Acceptable potassium and bicarb #Anemi : QUINCY 8000 units on dialysis. #Renal Osteodystrophy:continue dietary phosphorus restriction, phosphorus binders phoslo 2001 mg with meals Adjust medications as per hemodialysis Plan of care discussed with the primary attending physician and concurs with the above plan Thanks for letting me participate in this patient's care. Oscar Burris MD Associate nephrology This chart was completed in part utilizing [employer] Speech Voice Recognition Software. Randomword insertions, pronoun errors, and incomplete sentences are an occasional consequence of this system due to software limitations, and ambient noise. Any questions or concerns about the content, text, or information contained within the body of this dictation should be directly addressed to the provider for clarification. * Marcell Garsia, - 10/07/2024 11:19 AM EDT PROGRESS NOTE - CARDIOLOGY [facility] [place]-[address] [id number] Name: Canid Finley Location: [facility] H763/A Date: 10/07/2024 Time: 11:19 AM Overnight Events: Amiodarone infusion infiltrated from peripheral IV. Infusion stopped, PO amiodarone started. Subjective: Patient reports some ringing in her ears this morning that she states sometimes happens when her blood pressure is low. Otherwise she denies syncope, shortness of breath, chest pain, abdominal pain, nausea or vomiting. She reports resolution of her leg discomfort that she relates to bladder infection. Objective: Vital Signs: Blood Pressure: 110/37 mmHg Last 12H: Most Recent Systolic BP Av.3 mmHg Min: 84 mmHg Max: 110 mmHg Pulse: 68 Last 12H: Pulse Av.5 Min: 60 Max: 70 Temperature: 36.8 °C (98.2 °F) Last 12H: Most Recent Temperature Av.5 C Min: 36.28 C Max: 36.78 C Respiratory Rate: 16 O2 Saturation: 99 % Intake & Output: Intake/Output Summary (Last 24 hours) at 10/07/2024 1119 Last data filed at 10/07/2024 0900 Gross per 24 hour Intake 834.75 ml Output 50 ml Net 784.75 ml Physical Examination: General: no acute distress, appears comfortable lying in bed Head: atraumatic, normocephalic Neck: supple, trachea midline Cardio: regular rate and rhythm. Normal S1/S2. No murmurs, rubs or gallops Respiratory: no signs of respiratory distress. Clear to auscultation bilaterally. No rales, rhonchior wheezes Abdomen: soft, nontender, nondistended. No CVA tenderness Lower Extremities: no edema or erythema. Skin: warm, dry, intact. Nailbeds pink with no cyanosis Neuro: Alert and oriented x3, no focal deficits appreciated Psych: normal affect, appropriate Laboratory Values: reviewed Creatinine 8.1 Potassium 4.7 Magnesium 2.3 Sodium 131 Hemoglobin 8.4 Radiographic & Other Studies: reviewed Impression and Plan: Principal Problem: Ventricular tachycardia, non-sustained (HCC) (POA: Yes) Active Problems: Type 2 diabetes mellitus with hemoglobin A1c goal of less than 7.0% (HCC) (POA: Yes) Chronic diastolic heart failure (HCC) (POA: Yes) End stage renal disease on dialysis (HCC) (POA: Yes) Resolved Problems: * No resolved hospital problems. * POA = Present On Admission Candi Finley is a 63 year old female with PMHx of sick sinus syndrome s/p dual-chamber pacemaker, HFpEF, ESRD on HD MWF presented with multiple syncopal episodes and found to have intermittent non-sustained polymorphic ventricular tachycardia. Transferred from [facility] for further management. Non-sustained polymorphic VT Syncope No episodes of VT or syncope since admission. EP evaluated, per their interrogation her longest episode was 10 seconds. Cardiac catheterization 10/06/24 with hemodynamically insignificant LAD lesion. - EP to take for ICD implantation - continue PO amiodarone for now, will likely stop after ICD - telemetry monitoring - BMP, Mag q12h. Goal K>4, Mag>2 - avoid QT prolonging agents Coronary Artery Disease 50% LAD lesion (not hemodynamically significant with FFR 0.83) - continue BACKPACKERS MANAGER aspirin, atorvastatin HFpEF HTN - continue BACKPACKERS MANAGER carvedilol 12.5mg - continue BACKPACKERS MANAGER amlodipine ESRD on HD MWF (last session 10/04/24) - Nephrology consulted - HD session not done today due to soft blood pressure - will discuss with Nephro regarding session tomorrow - continue BACKPACKERS MANAGER phos binder UA with pyuria and bacteruria at [facility] Patient with atypical symptoms that have resolved. No convincing evidence of urinary tract infection, therefore will not treat with antibiotics. - will call [facility] again today to follow up on culture and sensitivity if available Rhinovirus (positive 10/04 at [facility]) - continue supportive care - droplet precautions Insulin-dependent type 2 diabetes (A1c 7.7 05/07/24) - MDSSI - lantus 5 units AM (BACKPACKERS MANAGER 10 units) MINISTERIO: CPAP at night Depression: Continue BACKPACKERS MANAGER citalopram Diabetic neuropathy: Continue BACKPACKERS MANAGER gabapentin Hypothyroidism: Continue BACKPACKERS MANAGER levothyroxine Misc: Bowel Regimen: MiraLax VTE Prophylaxis: heparin 7500u q8H and SCBs & TEDS Code Status: Full Code Disposition: 2 days or more Patient will be seen and examined by attending physician, DO Marcell Stephens DO Resident, Internal Medicine Cosigned by Honorio Alvarez DO at 10/07/2024 11:42 AM EDT Associated attestation - Honorio Alvarez DO - 10/07/2024 11:42 AM EDT I saw and evaluated the patient today. I have reviewed the resident/fellow physician note and agree. Stable this AM, doing well. No urinary symptoms and otherwise no symptoms. For ICD today. I am not sure what happened with her BP dropping this AM, but will hold anti- hypertensive medical therapy and reassess tomorrow for dialysis. * Sun Marcellduke Rdz, DO - 10/06/2024 11:00 AM EDT PROGRESS NOTE - CARDIOLOGY [facility]-[address] [id number] Name: Candi Finley Location: [facility] H763/A Date: 10/06/2024 Time: 11:00 AM Overnight Events: No acute events overnight. Subjective: Patient reports feeling well today. She denies any further syncopal episodes. She additionally denies chest pain or shortness of breath. Objective: Vital Signs: Blood Pressure: 113/44 mmHg Last 12H: Most Recent Systolic BP Av.1 mmHg Min: 105 mmHg Max: 129 mmHg Pulse: 71 Last 12H: Pulse Av.5 Min: 60 Max: 76 Temperature: 36.5 °C (97.7 °F) Last 12H: Most Recent Temperature Av.4 C Min: 36.22 C Max: 36.5 C Respiratory Rate: 12 O2 Saturation: 99 % Intake & Output: Intake/Output Summary (Last 24 hours) at 10/06/2024 1100 Last data filed at 10/06/2024 1000 Gross per 24 hour Intake 961.99 ml Output 200 ml Net 761.99 ml Physical Examination: General: no acute distress, appears comfortable lying in bed Head: atraumatic, normocephalic Neck: supple, trachea midline Cardio: regular rate and rhythm. Normal S1/S2. No murmurs, rubs or gallops Respiratory: no signs of respiratory distress. Clear to auscultation bilaterally. No rales, rhonchior wheezes Abdomen: soft, nontender, nondistended. Lower Extremities: no edema or erythema. Skin: warm, dry, intact. Nailbeds pink with no cyanosis Neuro: Alert and oriented x3, no focal deficits appreciated Psych: normal affect, appropriate Laboratory Values: reviewed Creatinine 6.6, stable from prior Potassium 4.7 Magnesium 2.2 Sodium 130 Hemoglobin 8.6 Radiographic & Other Studies: reviewed Impression and Plan: Principal Problem: Ventricular tachycardia, non-sustained (HCC) (POA: Yes) Active Problems: Type 2 diabetes mellitus with hemoglobin A1c goal of less than 7.0% (HCC) (POA: Yes) Chronic diastolic heart failure (HCC) (POA: Yes) End stage renal disease on dialysis (HCC) (POA: Yes) Resolved Problems: * No resolved hospital problems. * POA = Present On Admission Candi Finley is a 63 year old female with PMHx of sick sinus syndrome s/p dual-chamber pacemaker, HFpEF, ESRD on HD MWF presented with multiple syncopal episodes and found to have intermittent non-sustained polymorphic ventricular tachycardia. Transferred from [facility] for further management. Non-sustained polymorphic VT Syncope No episodes of VT or syncope overnight. Patient remains in AV paced rhythm. Qtc on EKG 539, though in setting of paced rhythm. - continue amiodarone infusion - plan for cardiac cath today to rule out ischemia - EP consulted - telemetry monitoring - BMP, Mag q12h. Goal K>4, Mag>2 - avoid QT prolonging agents HFpEF HTN - continue BACKPACKERS MANAGER carvedilol 12.5mg - continue BACKPACKERS MANAGER amlodipine ESRD on HD MWF (last session 10/04/24) - Nephrology consult - continue BACKPACKERS MANAGER phos binder UA with pyuria and bacteruria at [facility] Patient endorses symptoms of bilateral leg discomfort that is typically what she experiences duringurinary tract infections. She denies dysuria, lower abdominal pain, CVA tenderness, fevers or chills. She received ceftriaxone at [facility]. Review of prior urine culture shows that she has grown resistant organisms in the past. - will call [facility] today to follow up on culture and sensitivity Rhinovirus (positive 10/04 at [facility]) - continue supportive care - droplet precautions Insulin-dependent type 2 diabetes (A1c 7.7 05/07/24) - MDSSI - lantus 5 units AM (BACKPACKERS MANAGER 10 units) MINISTERIO: CPAP at night Depression: Continue BACKPACKERS MANAGER citalopram Diabetic neuropathy: Continue BACKPACKERS MANAGER gabapentin Hypothyroidism: Continue BACKPACKERS MANAGER levothyroxine HLD: continue atoravastatin 40 Misc: Bowel Regimen: MiraLax VTE Prophylaxis: heparin 7500u q8H and SCBs & TEDS Code Status: Full Code Disposition: 2 days or more Patient will be seen and examined by attending physician, DO Marcell Stephens DO Resident, Internal Medicine Cosigned by Honorio Alvarez DO at 10/06/2024 12:22 PM EDT Associated attestation - Honorio Alvarez DO - 10/06/2024 12:22 PM EDT I saw and evaluated the patient today. I have reviewed the resident/fellow physician note and agree. Cath and EP consult today. She has not had any recent medication adjustment/administration known to prolong QT interval (amoxicillin and amox-clav poss for dental infection), but stable SSRI dosing. Echo today too. Nephrology consultation for dialysis needs pending. documented in this encounter H&P Notes * Carlota Bingham MD - 10/12/2024 2:36 PM EDT HISTORY & PHYSICAL INTERVAL NOTE [facility]-[address] [id number] History and Physical Update: Name: Candi Finley Location: OR [facility]/OR Date: 10/12/2024 Time: 2:36 PM DATE OF HISTORY AND PHYSICAL: 1- POD#4 AICD for NSVT, polymorphic 2- Severe Mitral regurgitation & MS 3- Rhinovirus (+) 4- ESRD on HD (M, W, F) 5- DM 6- HFpEF 7- Jody en Y Bypass 8- MINISTERIO on CPAP 9- Hypothyroidism Presenting for MOUNA to look at MR BP: 84 mmHg/60 mmHg (10/12/24 1430) Pulse: 72 (10/12/24 1430) Resp: 16 (10/12/24 1430) Temp: 36.89 C (10/12/24 1343) Temp Summary: Temp Min: 36.3 °C (97.3 °F) Max: 37.2 °C (99 °F) SpO2: 95 % (10/12/24 1430) O2 flow rate: 0 L/MIN (10/11/24 2313) Supplemental O2 Delivery: Room Air, None (10/12/24 1343) Does patient take a beta griselda? No beta griselda Did patient stop anticoagulants? Aspirin Heart Exam: regular rate and rhythm Lung Exam: clear to auscultation bilaterally Other Pertinent Physical Exam: n/a I have reviewed the H&P previously performed and examined the patient today. There are no new findings noted. Cosigned by Rogelio Graves DO at 10/12/2024 4:36 PM EDT Associated attestation - Rogelio Graves DO - 10/12/2024 4:36 PM EDT Attending Attestation: I have discussed the patient's management with the medical trainee and agree with the note. Please refer to the documented findings and plan of care. The patient's bedside service today consisted of an evaluation. I was present and confirmed the findings of the history and exam. * Honorio Alvarez, - 10/05/2024 3:16 PM EDT Images from the original note were not included. 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 The episodes occurred while she was sitting. She will occasionally feel generally unwell in the seconds prior to losing consciousness and she says she will be unconscious for anywhere from 1-3 minutes. She usually feels "off" for approximately 10 minutes following these episodes. She reports nausea after these episodes. Her has witnessed these episodes and reportedly denies any convulsions or incontinence. She denies any chest pain or shortness of breath prior to the episodes. She denies any exertional chest pain recently, though does endorse exertional shortness of breath. She also reports about a week of dry cough, nasal congestion and sore throat. She presented to [facility] after another episode of syncope. Interrogation of her pacemaker showed she was having several episodes of nonsustained polymorphic ventricular tachycardia lasting at most 3 seconds. She was transferred to [facility] for further management. Upon arrival to [facility], patient reports feeling well. She currently denies any chest pain, shortness of breath, lightheadedness, nausea or vomiting. ALLERGIES Chidi inhibitors PHYSICAL EXAMINATION: Most Recent Vital Signs: BP: 132 mmHg/52 mmHg (10/05/24 1630) Pulse: 62 (10/05/24 1630) Resp: 19 (10/05/24 1630) Temp: 37.11 C (10/05/24 1600) Temp Summary: Temp Min: 37.1 °C (98.8 °F) Max: 37.1 °C (98.8 °F) SpO2: 100 % (10/05/24 1630) O2 flow rate: 2 L/MIN (10/05/24 1600) Supplemental O2 Delivery: Nasal Cannula (10/05/24 1600) General: no acute distress, appears comfortable lying in bed Head: atraumatic, normocephalic Cardio: regular rate and rhythm. Normal S1/S2. Respiratory: no signs of respiratory distress. Clear to auscultation bilaterally. No rales, rhonchior wheezes Abdomen: soft, nondistended. Mild tenderness to palpation of the LLQ Lower Extremities: no edema or erythema. Skin: warm, dry, intact. Nailbeds pink with no cyanosis Neuro: Alert and oriented x3, no focal deficits appreciated Psych: normal affect, appropriate LABS: Labs reviewed [facility] documentation. CARDIAC STUDIES: TTE 2020: Cardiac Catheterization 2012: The systemic blood pressure is normal. The left ventricular end diastolic pressure is normal. - Left Ventricle: Left ventricular systolic function is mild dysfunction: 40% to 49%. Left ventricular segmental wallmotion is abnormal (as described). - Coronary Arteries: The coronary arteries are angiographically normal. IMPRESSION and PLAN: Principal Problem: Ventricular tachycardia, non-sustained (HCC) Active Problems: Type 2 diabetes mellitus with hemoglobin A1c goal of less than 7.0% (HCC) Chronic diastolic heart failure (HCC) End stage renal disease on dialysis (HCC) Resolved Problems: * No resolved hospital problems. * Non-sustained polymorphic VT Syncope Patient with multiple syncopal episodes over the past couple of weeks. Interrogation of her pacemaker shows multiple episodes of nonsustained polymorphic ventricular tachycardia. The episodes last 3 seconds or less. EKG shows AV paced rhythm. Troponin I within normal limits at [facility]. - amiodarone infusion - plan for cardiac cath to rule out ischemia - EP consult in the morning - EKG now - telemetry monitoring - BMP, Mag now HFpEF HTN - continue BACKPACKERS MANAGER carvedilol 12.5mg - continue BACKPACKERS MANAGER amlodipine ESRD on HD MWF (last session 10/04/24) - Nephrology consult - continue BACKPACKERS MANAGER phos binder UA with pyuria and bacteruria - received ceftriaxone at [facility] - will assess symptoms and can continue antibiotic if symptomatic Rhinovirus (positive 10/04 at [facility]) - continue supportive care - droplet precautions Insulin-dependent type 2 diabetes (A1c 7.7 05/07/24) - MDSSI - lantus 5 units AM (BACKPACKERS MANAGER 10 units) MINISTERIO: CPAP at night Depression: Continue BACKPACKERS MANAGER citalopram Diabetic neuropathy: Continue BACKPACKERS MANAGER gabapentin Patient discussed with Dr. Alvarez, attending physician. Marcell Garsia, DO Internal Medicine PGY2 I saw and evaluated the patient today. I have reviewed the resident/fellow physician note and agree. Mrs. Finley is seen in transfer for 6 episodes of syncope which have been rather rapid with usualprodromal symptoms. It was decided at her last episode of the same to present for evaluation, which she told he her she was "about to"...and then experienced syncope without prodrome. Her dual chamber pacemaker (implant for prior tachy-andrew w/known SVT+sinus node dysfunction) detected multiple runs of self-limited polymorphic VT which is conceivably responsible for these episodes. On exam she is comfortable with non-labored breathing, heart is regular in rate/rhythm and lungs are clear. Abdomen is soft, no distention, no peripheral edema. She has no reports of angina- but does not some progressive dyspnea over the past several months. AV dual paced rhythm on exam. Potassium and magnesium within normal limits, last dialysis session was yesterday (standard sessions --F). Plan for cath, echo tomorrow- EP consultation will be requested as well. Potentially will require upgrade to dual chamber ICD given VT and syncope. documented in this encounter Procedure Notes * Beto Hanson DO - 10/07/2024 5:14 PM EDTAssociated Order(s): EKG REASON FOR STUDY: AICD CONCLUSIONS: AV dual-paced rhythm When compared with ECG of 05-Oct-2024 17:20, No significant change was found Ventricular Rate: 60 Atrial Rate: 60 AR Interval: 196 QRS Duration: 180 QT/QTc: 518/518 ms P-R-T Alma: 57 : 262 : 6 degrees * Arianne Carrizales IV, MD - 10/07/2024 4:43 PM EDT ELECTROPHYSIOLOGY REPORT [place] [address] Candi Finley MR # :[id number] :[id number] DATE OF SERVICE:10/07/2024 PROCEDURE: Defibrillator implantation- Biventricular ICD (New ICD lead and old RV lead) INDICATIONS: 1. Polymorphic ventricular tachycardia 2. Syncope COMMENT: Ms. Finley has a history of sinus node dysfunction for which a DDD pacemaker was implanted in 2019. She now presents with syncopal events beginning 5 or 6 weeks ago. She has had a total of3 or 4 syncopal events. With the events she notes the sudden onset of feeling flushed, funniness inher head followed by syncope or presyncope. Interrogation of her pacemaker has revealed episodes of rapid polymorphic ventricular tachycardia. Coronary angiography did not reveal hemodynamically significant obstructive disease. Implantation of a secondary prevention ICD was recommended. DEVICE POCKET: The patient was brought to the electrophysiologic laboratory in the postabsorptive state. The left pectoral region was draped and prepped in the usual sterile fashion. 1% lidocaine wasused to locally anesthetize the skin. An incision was made 2 cm below the clavicle. Using blunt andcautery dissection a device pocket was formed. Adequate hemostasis was assured. VASCULAR ACCESS: A venogram was used to visualize the axillary and subclavian vein. Both were patent. Utilizing the modified Seldinger technique, the axillary vein was punctured over the first rib. The axillary vein was punctured at one site and one guidewire were advanced into the right atrium. LEAD PLACEMENT: Right Ventricular Defibrillator Lead: A 9 Fr sheath was advanced over a guidewire. Through this a single coil defibrillator lead was advanced into the right atrium. Under fluoroscopic guidance, the lead was advanced across the tricuspid valve. The lead was then positioned in the right ventricular apex. At a site with adequate pacing and sensing thresholds the lead was secured with 2-0 silk ties. POCKET CLOSURE: Following placement of the right ventricular defibrillator lead, the pacemaker capsule was entered and the pacemaker was removed through the new incision. The leads were connected to the cardioverter-defibrillator. The old RV lead was placed in the LV port. (This will allow her device to be MRI conditional.) The device was placed in an antibiotic envelope. The cardioverter-defibrillator was placed in the pocket. The pocket was then closed with 2 layers of 0 Vicryl suture and theskin was closed with a 4 0 running knotless suture. There were no complications. Moderate Sedation: Trained observer who delivered the sedation:Ronda Gonzalez RN Procedure start time: 2:45 p.m. Procedure stop time: 4:16 p.m. Sedation: Midazolam - 5 mg, Fentanyl - 125 mcg, and Diphenhydramine (Benadryl) - 50 mg IMPLANTED HARDWARE Lead Data Placement Device Type Rumper Model Name Model Number Serial Number If explanted, Date Implanted RA endocardial Existing Lead Medtronic CapSure Fix Novus 5076-52 [id number] 11/17/2018 RV Septum Existing Lead Medtronic CapSureFix Novus 5076--[id number] 11/17/2018 RV [place] New Lead Medtronic Sprint Quattro Secure S MRI SureScan [id number] 10/07/2024 ICD/Pacer Pulse Generator Data Placement Device Type Rumper Model Name Model Number Serial Number If explanted, Date Implanted Left Pectoral Explant Medtronic Cougar XT [id number] 11/17/2018 Left Pectoral Implant Medtronic [place] HF WATCHER LOOKOUT TOWER-D [id number] 10/07/2024 Treshold /Measurement Data Threshold V Pulse Width msec Resistance ohms P/R Wave mV Polarity Atrial Lead: 0.60 0.40 466.00 1.10 Bi RV Lead: 0.70 0.50 567.00 9.00 Bi Device Settings Mode: DDDR Lower Rate: 60.00 bpm ZAHEER Delay: 170.00 msec Upper Rate (Tracking): 130.00 bpm PAV Delay: 200.00 msec Upper Rate (Activity): 130.00 bpm Mode Switch On : BPM Programmed Perimeters Atrial Lead RV Lead Pulse Width msec: 0.40 0.50 Pulse Amplitude V: 2.00 5.00 Sensitivity mV: 0.60 0.30 ICD Therapies Zone Status Cycle Rate Therapy Interval Therapy 1 Therapy 2 Therapy No Therapies VF On 340.00 30/40 ATP, 40j 40J 3-6 40J Fast VT On 240.00 30/40 BurstX2 40J 3-6 40J VT On 16 Monitor Only On 400.00 32 Arianne Carrizales IV, MD Cardiology/Electrophysiology Associate * Beto Hanson, - 10/06/2024 5:32 PM EDT [address] [address] CARDIAC WRAP YARN SORTER BRIEF PROCEDURE NOTE Name: Candi Finley Date: 10/06/2024 Time: 5:32 PM Location: CARDIAC LABS [facility] Date of Procedure: 10/06/2024 Pre-op Diagnosis: VT Post-op Diagnosis: moderate non-obstructive CAD Procedure: Left heart cath, Coronary angiography Nuclear Physics Professor: Dr. Hanson Bowl Sander(s): Dr Andino Anesthesia: Monitored local anesthesia with sedation Additional Findings: Moderate non-obstructive CAD Prox LAD 50% --> FFR 0.83 (not hemodynamically significant) No significant CAD elsewhere LVEDP 17 mmHg Access: Right common femoral artery Hemostasis: Closure Device Mynx (5Fr) Complications: none Condition of patient: Good Post Sedation Evaluation: Cardiovascular status: acceptable Level of consciousness: awake and alert Airway patency: patent Distress - NAD Hydration status - well hydrated Nausea/vomiting - not present Recommendations: no culprit coronary lesions identified to explain VT episodes I have discussed the patient's management with the resident/fellow physician and agree with the note. Please refer to the documented findings and plan of care. This patient's visit today consisted ofa procedure. I was present for the entire procedure. Beto Hanson DO * Christo Chang MD - 10/05/2024 5:20 PM EDTAssociated Order(s): EKG REASON FOR STUDY: TACHY CONCLUSIONS: AV dual-paced rhythm Abnormal ECG When compared with ECG of 26-Dec-2023 16:07, Vent. rate has decreased by 17 bpm Ventricular Rate: 61 Atrial Rate: 60 AR Interval: 192 QRS Duration: 188 QT/QTc: 536/539 ms P-R-T Alma: 0 : 179 : 46 degrees documented in this encounter Consult Notes * Vivienne Quintana MD - 10/13/2024 7:25 PM EDT Structural Heart Interventions Consult Note We are asked to assess candidacy for transcatheter mitral therapies. Briefly this is a 63-year-old female with longstanding history of insulin dependent diabetes mellitus, end-stage renal disease on hemodialysis for the last 3 years, hypothyroidism who was admitted with syncope in the setting of nonsustained polymorphic ventricular tachycardia. She had a dual-chamber pacemaker which was upgraded to a biventricular ICD. She is also being treated for hypoxic respiratory failure during this hospitalization. She underwent a transesophageal echocardiogram yesterday that showed mitral annular calcification with severe mitral regurgitation and moderate mitral stenosis. Prior to admission, patient reports that she has not been physically very active. She attributes this to having tibial fracture about 6 months ago when she fell in her camper. She states that over the last year she can do some activities of daily living such as cooking, laundry. However she is unable to walk long distances or go upstairs. For about a week prior to admission, she reported significant dyspnea on exertion on walking few feet. Today she walked about 20-30 week prior to getting dialysis. She denies any angina. She has not had any recurrent syncope since implantation of ICD. She underwent coronary angiogram during this admission which showed moderate stenosis of LAD. This was investigated using FFR and was not hemodynamically significant. There was no disease in RCA or left circumflex. She has been evaluated by Cardiothoracic surgery and is deemed to be at high- risk for mortality. She may be at prohibitive risk if significant amount of aortic calcification is found on CT. I met with the patient and spouse at bedside. I discussed the pathophysiology of her mixed mitral valve disease. I have discussed the treatment options with her. Based on review of her transesophageal echocardiogram, mitral valve anatomy is not suitable for transcatheter mitral valve edge to edge repair. I discussed the option of off label use of transcatheter aortic bioprosthesis in mitral valve position (Mitral Valve in MAC), however this is also associated with significant amount of risk. Furthermore she will need a cardiac CT to evaluate whether her cardiac anatomy is even going to be feasible for this procedure. Also, given her poor baseline functional status it is unclear whether risk-benefit ratio would support such a high-risk intervention. I also discussed the option of referral to other clinical sites that are currently enrolling patients in transcatheter mitral valve trials. We will discuss with inpatient team about obtaining a cardiac CTA to get an assessment of her mitral valve anatomy for feasibility of mitral valve in MAC. Furthermore, we may consider doing a right heart catheterization to understand the hemodynamic impact of her mitral valve disease. Finally, I think it is reasonable to pursue medical therapy for now and get an assessment of her functional status as an outpatient at follow-up prior to pursuing any transcatheter mitral valve therapy. Gianluca Quintana MD Interventional Cardiology [place], [place] 10/13/24 7:41 PM * Williams Arboleda PA-C - 10/13/2024 3:48 PM EDTAssociated Order(s): CARDIAC SURGERY CONSULT IP CONSULT - CARDIAC SURGERY [facility]-[address] [id number] Name: Candi Finley Location: [facility] H879/A Date: 10/13/2024 Time: 7:43 AM REFERRING PHYSICIAN: Donna Wilson MD PCP: Luis Fernando Rojas MD REGULATORY SCIENTIST: Dr. Stevenson ([place]) REQUESTING SERVICE: Cardiology REASON FOR CONSULT: "Severe mitral regurgitation" HPI: Candi Finley is a 63 year old female with past medical history significant for HTN, DLD, tachy-andrew syndrome s/p PPM (2018), HFpEF, DM, MINISTERIO on CPAP, ESRD on HD ([place]), and hx of gastric bypass who presens as a transfer from [facility] after a syncopal episode. She has had 5-6 recent episodes of syncope in the 6 weeks. Interrogation of her PPM noted multiple episodes of non-sustained ventricular tachycardia, so she was transferred to [facility] for further management. She was treated with Amiodarone and had an ICD placed on 10/07. She underwent cardiac cathon 10/06 that noted a 50% LAD lesion that was not hemodynamically significant. Post- operatively she had acute hypoxic respiratory failure caused by flash pulmonary edema. TTE done on 10/06 noted severeMR and MOUNA done on 10/12 confirmed moderate MS as well as severe MR. [place] Heart Failure Classification: Class II (Mild) ALLERGIES: Chidi inhibitors PAST MEDICAL HISTORY: Past Medical History: Diagnosis [...] failure hemodialysis SBO (small bowel obstruction) ([facility]) 04/25/2017 Sleep apnea 07/2009 CPAP 11 cm H2O. C-flex 2 PAST SURGICAL HISTORY: Past Surgical History: Procedure Laterality Date ABD WALL HERNIA REPAIR, LAP, REDUCIBLE N/A 01/28/2022 LAPAROSCOPIC VENTRAL/UMBILICAL HERNIA REPAIR, REDUCIBLE W OR W/O MESH performed by Honorio Ashford MD at OR [facility] AV ACCESS, DIRECT ANASTOMOSIS Right 08/16/2021 ARTERIOVENOUS ANASTOMOSIS OPEN DIRECT ANY SITE performed by Sterling Cates MD at [facility] BREAST BIOPSY Left 12/26/2008 Usual Ductal Hyperplasia BREAST BIOPSY Left 09/20/2010 Benign BX LYMPH NODE DEEP AXIL Right 05/22/2021 BIOPSY LYMPH NODE DEEP AXILLARY OPEN performed by Diamond Rivero MD at OR [facility] COLONOSCOPY, DIAGNOSTIC (RECTUM) 12/02/2013 hyperplastic polyps, diverticulosis, repeat 5 yrs/done @ [facility] COLONOSCOPY, DIAGNOSTIC (RECTUM) 12/11/2017 adenomatous polyps, diverticulosis, repeat 5 yrs/[facility] COLONOSCOPY, DIAGNOSTIC (RECTUM) N/A 02/27/2023 diverticulosis/hemorrhoids/biopsies show adenomatous polyps/recall 5 years/[place] CORONARY ANGIOGRAPHY W/LEFT HEART CATH 04/13/2013 CORONARY ANGIOGRAPHY W/LEFT HEART CATH performed by Ulises Reed MD at CARDIAC [facility]S [facility] DIALYIS CIRCUIT VASCULAR EMBOLIZATION OCCLUSION ENDOVASC IMAGING Right 11/27/2021 EMBOLIZATION DIALYSIS CIRCUIT performed by Sterling Cates MD at [facility] EGD, FLEXIBLE, DIAGNOSTIC 05/03/2014 mild-mod inflammation/done @ [facility] EGD, FLEXIBLE, DIAGNOSTIC N/A 04/16/2017 ESOPHAGOGASTRODUODENOSCOPY (EGD), FLEXIBLE, TRANSORAL, DIAGNOSTIC performed by Félix Gilliam OR [facility] EGD, FLEXIBLE, DIAGNOSTIC 05/05/2020 mild-mod inflammation on bx / ESOPHAGOGASTRODUODENOSCOPY (EGD), FLEXIBLE, TRANSORAL, DIAGNOSTIC performed by Adin Borja MD at ENDOSCOPY [facility] EGD, FLEXIBLE, DIAGNOSTIC N/A 04/25/2021 ESOPHAGOGASTRODUODENOSCOPY (EGD), FLEXIBLE, TRANSORAL, DIAGNOSTIC performed by Honorio Almendarez MD atENDOSCOPY [facility] EGD, FLEXIBLE, DIAGNOSTIC 06/13/2021 gastrojejunal anastomosis characterized by ulceration, repeat 2 mo / [facility] IDENTIFY SENTINEL NODE, RADIOACTIVE TRACER Right 05/22/2021 INJECTION PROCEDURE FOR IDENTIFICATION SENTINEL NODE performed by Diamond Rivero MD at OR [facility] INFORMATION Left 2019 Pacemaker placement. INTRO CATH DIALYSIS CIRCUIT DX ANGIOGRAPHY FLUORO S&I Right 10/10/2022 AV FISTULOGRAM DIAGNOSTIC performed by Jose Devine MD at OR [facility] INTRO CATH DIALYSIS CIRCUIT W/TRANSCATH PLACEMENT IV STENT Right 03/19/2022 AV FISTULOGRAM STENT & PERIPHERAL ANGIOPLASTY performed by Jose Devine MD at OR [facility] INTRO CATH DIALYSIS CIRCUIT W/TRANSCATH PLACEMENT IV STENT Right 05/13/2023 AV FISTULOGRAM STENT & PERIPHERAL ANGIOPLASTY performed by Williams Matt MD at OR [facility] INTRO CATH DIALYSIS CIRCUIT W/TRANSCATH PLACEMENT IV STENT Right 12/02/2023 AV FISTULOGRAM STENT & PERIPHERAL ANGIOPLASTY performed by Micheal Urena MD at OR [facility] INTRO CATH DIALYSIS CIRCUIT W/TRANSCATH PLACEMENT IV STENT Right 06/01/2024 AV FISTULOGRAM STENT & PERIPHERAL ANGIOPLASTY performed by Beto Torrez MD at OR [facility] INTRO CATH DIALYSIS CIRCUIT W/TRANSLUM BALLOON ANGIOPLASTY Right 11/27/2021 AV FISTULOGRAM & PERIPHERAL ANGIOPLASTY performed by Sterling Cates MD at OR [facility] INTRO CATH DIALYSIS CIRCUIT W/TRANSLUM BALLOON ANGIOPLASTY Right 05/30/2022 AV FISTULOGRAM & PERIPHERAL ANGIOPLASTY performed by Beto Torrez MD at OR [facility] INTRO CATH DIALYSIS CIRCUIT W/TRANSLUM BALLOON ANGIOPLASTY Right 02/25/2023 AV FISTULOGRAM & PERIPHERAL ANGIOPLASTY performed by Jose Devine MD at OR [facility] INTRO CATH DIALYSIS CIRCUIT W/TRANSLUM BALLOON ANGIOPLASTY Right 03/30/2024 AV FISTULOGRAM & PERIPHERAL ANGIOPLASTY performed by Micheal Urena MD at OR [facility] INTRO CATH DIALYSIS CIRCUIT W/TRANSLUM BALLOON ANGIOPLASTY Right 09/16/2024 AV FISTULOGRAM & PERIPHERAL ANGIOPLASTY performed by Sterling Cates MD at OR [facility] IR DUPLEX ULTRASOUND (FOR INTERVENTIONAL RADIOLOGY USE ONLY) 03/02/2021 IR FISTULAGRAM AV DIALYSIS SHUNT IR VENOUS ACCESS NON-MEDIPORT 07/18/2022 LAPAROSCOPE PROCEDURE, LIVER N/A 04/16/2017 UNLISTED LAPAROSCOPIC PROCEDURE LIVER performed by Sukumar Polanco MD at [facility] LAPAROSCOPE PROCEDURE, LIVER N/A 01/28/2022 UNLISTED LAPAROSCOPIC PROCEDURE LIVER performed by Honorio Ashford MD at OR [facility] LAPAROSCOPIC GASTRIC BYPASS/JODY-EN-Y N/A 04/16/2017 LAPAROSCOPIC GASTRIC RESTRICTIVE BYPASS JODY EN Y performed by Sukumar Polanco MD at [facility] LAPAROSCOPY; CHOLECYSTECTOMY N/A 04/16/2017 LAPAROSCOPIC CHOLECYSTECTOMY performed by Sukumar Polanco MD at OR [facility] MISCELLANEOUS ORDER ([facility] ONLY) 05/2009 breast biopsy/ [...] performed by Sukumar Polanco MD at OR [facility] REPLACE,COMP,FLACO CENT ACC DEV N/A 03/22/2021 REPLACEMENT COMPLETE TUNNELED CENTRAL CATHETER NO PORT performed by Luis Fernando Hassan DO at OR [facility] REVISE STOMACH-BOWEL FUSION N/A 01/28/2022 REVISION GASTROJEJUNAL ANASTOMOSIS performed by Honorio Ashford MD at OR [facility] RMV MALG LSN TRK/ARM/LG >4.0CM Right 05/22/2021 EXCISION MALIGNANT TRUNK ARM LEG OVER 4CM performed by Diamond Rivero MD at OR [facility] RPR AA HERNIA 1ST 3-10 CM REDUCIBLE N/A 12/11/2022 INCISIONAL/VENTRAL/SPIGELIAN HERNIA REPAIR INITIAL 3-10 CM REDUCIBLE performed by Eros Dash MD at OR [facility] TOTAL ABD HYSTERECTOMY W/WO REMOVAL OF TUBE(S) Bilateral age 33 TOTAL HYSTERECTOMY TAHBSO (endometrial ca) TRANSECTION VAGUS NRV,TRUNCAL N/A 01/28/2022 LAPAROSCOPIC TRANSECTION VAGUS NERVES TRUNCAL performed by Honorio Ashford MD at OR [facility] UPPER GI ENDOSCOPY Hx of vein harvest or stripping?: no SOCIAL HISTORY: Social History Tobacco Use Smoking status: Never Passive exposure: Never Smokeless tobacco: Never Vaping Use Vaping status: Never Used Substance Use Topics Alcohol use: No Drug use: No FAMILY HISTORY: Family History Problem Relation Name [...] Aunt (Paternal) Breast Cancer Cousin (Paternal) Family History of Premature CAD: yes REVIEW OF SYSTEMS: Constitutional: denies fever, denies shaking chills Eyes: denies double vision , denies blurred vision Ear, nose and throat: denies trouble swallowing, denies epistaxis Dental: last dental visit 2 weeks ago, 2 teeth pulled Cardiac: see HPI Respiratory: shortness of breath, dyspnea on exertion ([place]) Gastrointestinal: diarrhea, denies nausea, denies vomiting, denies abdominal pain Genitourinary: denies dysuria, denies hematuria Musculoskeletal: denies joint deformities Skin: denies rash Neurologic: syncope, denies trouble speaking, denies weakness Endocrine: trouble controlling glucoses Hematologic / Lymphatic: Previous Transfusion?: 5 years ago, denies blood clotting problems Immunologic: denies trouble fighting infections CARDIOTHORACIC COMPLETE PHYSICAL EXAM: Most Recent Vital Signs: BP: 100 mmHg/42 mmHg (10/13/24318) Pulse: 60 (10/13/24 0610) Resp: 18 (10/13/24318) Temp: 36.72 C (10/13/24318) Temp Summary: Temp Min: 36.4 °C (97.6 °F) Max: 37.2 °C (99 °F) SpO2: 95 % (10/13/24 0610) O2 flow rate: 1 L/MIN (10/12/24 2220) Supplemental O2 Delivery: Room Air, None (10/13/24 0610) PHYSICAL EXAM: General: no acute distress and alert and oriented Head: normocephalic, no masses, lesions, tenderness or abnormalities Teeth: teeth present without obvious periodontal disease Neck: supple, no adenopathy Chest: normal shape and normal respiratory effort Lungs: lungs clear to auscultation Cardiac Exam: regular rate & rhythm Pulses: The following pulses are normal: radials and dorsalis pedis pulses Abdomen: abdomen soft, non-tender, and no abnormal masses Extremities: no edema and no cyanosis Skin: skin color, texture, turgor are normal, no rashes or significant lesions Neuro: grossly normal exam LABS/STUDIES: Cardiac cath 10/06/24: Additional Findings: Moderate non-obstructive CAD Prox LAD 50% --> FFR 0.83 (not hemodynamically significant) No significant CAD elsewhere LVEDP 17 mmHg TTE 10/06/24: The examination is adequate to evaluate the [...] 50 mmHg. Moderate pulmonary hypertension is present. MOUNA 10/12/24: The examination is adequate to evaluate the referral indication. Severe mitral regurgitation is present. There is severe mitral annular calcification. There is a cleft in between P1 and P2. Moderate, progressive mitral stenosis is present. Mean gradient of 7mmHg when HR was 60. The qualitative LV ejection fraction is 55-59% (normal). Moderate tricuspid regurgitation is present. Aortic stenosis is absent. Society of Thoracic Surgeons (STS) Risk Score: STS site Procedure Type: Isolated MVR Perioperative Outcome Estimate % Operative Mortality 9.28% Morbidity & Mortality 29.4% Stroke 6.67% Renal Failure NA Reoperation 3.42% Prolonged Ventilation 23.9% Deep Sternal Wound Infection 0.094% Long Hospital Stay (>14 days) 34.3% Short Hospital Stay (<6 days)* 8.69% IMPRESSION: 63 year old female with moderate MS and severe MR PLAN: -No pre-op testing ordered pending surgeon input -Final plan per surgeon Cosigned by Luis Fernando Pretty MD at 10/14/2024 12:45 AM EDT Associated attestation - Luis Fernando Pretty MD - 10/14/2024 12:45 AM EDT I have reviewed the advanced practitioner's documentation on the date of service referenced in note, and I agree with, and take responsibility for the plan of care. I spent a total of 60 minutes coordinating, documenting, and providing care for this patient excluding time spent in the performance of separately billed services or time spent by another provider/QHP. 63y F with history of ESRD on HD, HTN, DM, MINISTERIO on CPAP, tachybrady syndrome s/p PPM, gastric bypass, and morbid obesity. She presented due to multiple syncopal episodes over the past few weeks, notedto have recurrent episodes of VT. Treated with amiodarone and underwent ICD placement last week. Cardiac cath 10/06 demonstrated a 50% proximal LAD stenosis that was not significant by FFR. Echo showed EF 55% and severe MR. She has also reported significant dyspnea with exertion, and during this admission has had hypoxia with pulmonary edema. Overall now feeling improved somewhat with fluid removal with dialysis, down to 1L O2 via NC. MOUNA done which shows complex mitral valve disease with severeMR and moderate MS in the setting of severe mitral annular calcification and posterior leaflet cleft. We discussed her treatment options for her mitral valve disease, with open heart surgery versus percutaneous transcatheter options. Surgical MVR would be the most definitive treatment, but is very high risk for her given her comorbidities which include ESRD, MINISTERIO, and morbid obesity. She has a nearly 10% predicted mortality per STS, and this does not take into account her severe MAC which further increased her risk. In addition, her functional status is poor and we discussed the likelihood of needing rehab/SNF post-op, and the possibility of not being able to return to her functional baseline. Unfortunately, with her mixed valve disease and moderate MS, she is not a candidate for JACQUE repair percutaneously. She could be considered for alternative transcatheter treatment like TMVR in MAC,but this would also be high risk. Ultimately she is currently improved with medical management, andwould consider continued medical therapy if able to maintain symptom improvement and her current quality of life, as any intervention is high risk. - Continue medical management - To be evaluated by interventional cardiology for alternative transcatheter treatment options - CT imaging to be obtained for interventional and surgical planning. High risk anatomy with severeMAC. Currently not prohibitive risk, but if significant ascending aortic calcifications, she may beprohibitive risk for surgery. - If there is no feasible transcatheter treatment option and she fails medical therapy, can be re-evaluated for high risk surgical MVR. Luis Fernando Pretty MD * Patti Castillo, DO - 10/06/2024 11:20 AM EDTAssociated Order(s): ELECTROPHYSIOLOGY CONSULT IP Images from the original note were not included. CONSULT - Electrophysiology [address] [id number] Name: Candi Finley Location: [facility] H763/A Date: 10/06/2024 Time: 11:21 AM REQUESTING SERVICE: Cardiology B REASON FOR CONSULT: Episodes of short non-sustained polymorphic ventricular tachycardia with syncope prior to admission. Hx of SSS s/p PPM. Planning for cath today to rule out ischemia. Please evaluate for ICD consideration PRESENTING PROBLEM: Candi Finley [facility] is seen in consultation for Cardiac arrhythmia ( nonsustained polymorphic VT) and possible need for ICD. HPI: Candi Finley is a 63 yo F with a hx of SSS s/p ppm ( placed in [address] Ricci), HFpEF (EF 65%2020) paroxysmal atrial tachycardia, ESRD on HD MWF, pulmonary HTN, T2DM, HTN, hypothroidism, and MINISTERIO on CPAP who presented as a transfer from [facility] in the setting of multiple episodes of non-sustained polymorphic VT with reported episodes of syncope. The patient states that her symptoms first began 5-6 weeks ago with her 1st syncopal episode in August, with 3-4 syncopal events total. She does report being symptoms of of feeling "not right/unwell", and when prompted endorses feeling flushed and a "funniness in my head" leading up to the events. Other times, she notes that her symptoms are more sudden onset, and she can only get a few words out to her before losing consciousness. She denies any exertional chest pain and any episodic chest pain surrounding her episodes, though notes that she has been more short of breath than baseline for the past 6 days. She states these episodes always seem to happen after dialysis in the evenings, excluding her most recent episode which occurred yesterday (last dialysis day was this past Friday). Every episode has been while seated and she has never sustained any injuries. She does experience dry heaves after the event, but denies anynausea/vomiting preceding the event. Her is at bedside in his able to provide additional information, stating the episodes of unconsciousness seem to last minute and a half at the longest. Hedenies witnessing any seizure-like activity or myoclonic jerking. Since admission she was found to be rhinovirus positive, though she denies fevers, chills, nausea/vomiting and endorses loose stools. She has not had any further episodes Since yesterday. Patient states that she does not currently follow with EP in the outpatient setting. Device interrogation was performed at bedside. On further discussion with patient's outpatient EP physician, Dr. Ricci, patient is recorded as having up to 10 sec NSVT. 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 DM type 2 causing renal disease (HCC) DM type 2, goal A1c below [address] Monte Dyslipidemia, goal LDL below 100 primarily high triglycerides Endometrial cancer (HCC) 1993 ESRD (end stage renal disease) on dialysis ([facility]) 03/14/2021 HTN, goal below 130/80 Kidney disease, [...] performed by Honorio Ashford MD at OR [facility] AV ACCESS, DIRECT ANASTOMOSIS Right 08/16/2021 ARTERIOVENOUS ANASTOMOSIS OPEN DIRECT ANY SITE performed by Sterling Cates MD at OR [facility] BREAST BIOPSY Left 12/26/2008 Usual Ductal Hyperplasia BREAST BIOPSY Left 09/20/2010 Benign BX LYMPH NODE DEEP AXIL Right 05/22/2021 BIOPSY LYMPH NODE DEEP AXILLARY OPEN performed by Diamond Rivero MD at OR [facility] COLONOSCOPY, DIAGNOSTIC (RECTUM) 12/02/2013 hyperplastic polyps, diverticulosis, repeat 5 yrs/done @ [facility] COLONOSCOPY, DIAGNOSTIC (RECTUM) 12/11/2017 adenomatous polyps, diverticulosis, repeat 5 yrs/[facility] COLONOSCOPY, DIAGNOSTIC (RECTUM) N/A 02/27/2023 diverticulosis/hemorrhoids/biopsies show adenomatous polyps/recall 5 years/[place] CORONARY ANGIOGRAPHY W/LEFT HEART CATH 04/13/2013 CORONARY ANGIOGRAPHY W/LEFT HEART CATH performed by Ulises Reed MD at CARDIAC LABS [facility] DIALYIS CIRCUIT VASCULAR EMBOLIZATION OCCLUSION ENDOVASC IMAGING Right 11/27/2021 EMBOLIZATION DIALYSIS CIRCUIT performed by Sterling Cates MD at OR [facility] EGD, FLEXIBLE, DIAGNOSTIC 05/03/2014 mild-mod inflammation/done @ [facility] EGD, FLEXIBLE, DIAGNOSTIC N/A 04/16/2017 ESOPHAGOGASTRODUODENOSCOPY (EGD), FLEXIBLE, TRANSORAL, DIAGNOSTIC performed by Félix Gilliam OR [facility] EGD, FLEXIBLE, DIAGNOSTIC 05/05/2020 mild-mod inflammation on bx / ESOPHAGOGASTRODUODENOSCOPY (EGD), FLEXIBLE, TRANSORAL, DIAGNOSTIC performed by Adin Borja MD at ENDOSCOPY [facility] EGD, FLEXIBLE, DIAGNOSTIC N/A 04/25/2021 ESOPHAGOGASTRODUODENOSCOPY (EGD), FLEXIBLE, TRANSORAL, DIAGNOSTIC performed by Honorio Almendarez MD atENDOSCOPY [facility] EGD, FLEXIBLE, DIAGNOSTIC 06/13/2021 gastrojejunal anastomosis characterized by ulceration, repeat 2 mo / [facility] IDENTIFY SENTINEL NODE, RADIOACTIVE TRACER Right 05/22/2021 INJECTION PROCEDURE FOR IDENTIFICATION SENTINEL NODE performed by Diamond Rivero MD at OR [facility] INFORMATION Left 2019 Pacemaker placement. INTRO CATH DIALYSIS CIRCUIT DX ANGIOGRAPHY FLUORO S&I Right 10/10/2022 AV FISTULOGRAM DIAGNOSTIC performed by Jose Devine MD at OR [facility] INTRO CATH DIALYSIS CIRCUIT W/TRANSCATH PLACEMENT IV STENT Right 03/19/2022 AV FISTULOGRAM STENT & PERIPHERAL ANGIOPLASTY performed by Jose Devine MD at OR [facility] INTRO CATH DIALYSIS CIRCUIT W/TRANSCATH PLACEMENT IV STENT Right 05/13/2023 AV FISTULOGRAM STENT & PERIPHERAL ANGIOPLASTY performed by Williams Matt MD at OR [facility] INTRO CATH DIALYSIS CIRCUIT W/TRANSCATH PLACEMENT IV STENT Right 12/02/2023 AV FISTULOGRAM STENT & PERIPHERAL ANGIOPLASTY performed by Micheal Urena MD at OR [facility] INTRO CATH DIALYSIS CIRCUIT W/TRANSCATH PLACEMENT IV STENT Right 06/01/2024 AV FISTULOGRAM STENT & PERIPHERAL ANGIOPLASTY performed by Beto Torrez MD at OR [facility] INTRO CATH DIALYSIS CIRCUIT W/TRANSLUM BALLOON ANGIOPLASTY Right 11/27/2021 AV FISTULOGRAM & PERIPHERAL ANGIOPLASTY performed by Sterling Cates MD at OR [facility] INTRO CATH DIALYSIS CIRCUIT W/TRANSLUM BALLOON ANGIOPLASTY Right 05/30/2022 AV FISTULOGRAM & PERIPHERAL ANGIOPLASTY performed by Beto Torrez MD at OR [facility] INTRO CATH DIALYSIS CIRCUIT W/TRANSLUM BALLOON ANGIOPLASTY Right 02/25/2023 AV FISTULOGRAM & PERIPHERAL ANGIOPLASTY performed by Jose Devine MD at OR [facility] INTRO CATH DIALYSIS CIRCUIT W/TRANSLUM BALLOON ANGIOPLASTY Right 03/30/2024 AV FISTULOGRAM & PERIPHERAL ANGIOPLASTY performed by Micheal Urena MD at OR [facility] INTRO CATH DIALYSIS CIRCUIT W/TRANSLUM BALLOON ANGIOPLASTY Right 09/16/2024 AV FISTULOGRAM & PERIPHERAL ANGIOPLASTY performed by Sterling Cates MD at OR [facility] IR DUPLEX ULTRASOUND (FOR INTERVENTIONAL RADIOLOGY USE ONLY) 03/02/2021 IR FISTULAGRAM AV DIALYSIS SHUNT IR VENOUS ACCESS NON-MEDIPORT 07/18/2022 LAPAROSCOPE PROCEDURE, LIVER N/A 04/16/2017 UNLISTED LAPAROSCOPIC PROCEDURE LIVER performed by Sukumar Polanco MD at OR [facility] LAPAROSCOPE PROCEDURE, LIVER N/A 01/28/2022 UNLISTED LAPAROSCOPIC PROCEDURE LIVER performed by Honorio Ashford MD at OR [facility] LAPAROSCOPIC GASTRIC BYPASS/JODY-EN-Y N/A 04/16/2017 LAPAROSCOPIC GASTRIC RESTRICTIVE BYPASS JODY EN Y performed by Sukumar Polanco MD at OR [facility] LAPAROSCOPY; CHOLECYSTECTOMY N/A 04/16/2017 LAPAROSCOPIC CHOLECYSTECTOMY performed by Sukumar Polanco MD at OR [facility] MISCELLANEOUS ORDER ([facility] ONLY) 05/2009 breast biopsy/ [...] performed by Sukumar Polanco MD at OR [facility] REPLACE,COMP,FLACO CENT ACC DEV N/A 03/22/2021 REPLACEMENT COMPLETE TUNNELED CENTRAL CATHETER NO PORT performed by Luis Fernando Hassan DO at OR [facility] REVISE STOMACH-BOWEL FUSION N/A 01/28/2022 REVISION GASTROJEJUNAL ANASTOMOSIS performed by Honorio Ashford MD at OR [facility] RMV MALG LSN TRK/ARM/LG >4.0CM Right 05/22/2021 EXCISION MALIGNANT TRUNK ARM LEG OVER 4CM performed by Diamond Rivero MD at OR [facility] RPR AA HERNIA 1ST 3-10 CM REDUCIBLE N/A 12/11/2022 INCISIONAL/VENTRAL/SPIGELIAN HERNIA REPAIR INITIAL 3-10 CM REDUCIBLE performed by Eros Dash MD at OR [facility] TOTAL ABD HYSTERECTOMY W/WO REMOVAL OF TUBE(S) Bilateral age 33 TOTAL HYSTERECTOMY TAHBSO (endometrial ca) TRANSECTION VAGUS NRV,TRUNCAL N/A 01/28/2022 LAPAROSCOPIC TRANSECTION VAGUS NERVES TRUNCAL performed by Honorio Ashford MD at OR [facility] UPPER GI ENDOSCOPY FAMILY HISTORY: Family History [...] Topics Alcohol use: No Drug use: No ALLERGIES: Chidi inhibitors ROS: As per HPI otherwise non-contributory. PHYSICAL EXAMINATION: Most Recent Vital Signs: BP: 109 mmHg/47 mmHg (10/06/24 1100) Pulse: 66 (10/06/24 1100) Resp: 14 (10/06/24 1200) Temp: 36.61 C (10/06/24 1200) Temp Summary: Temp Min: 36.2 °C (97.2 °F) Max: 37.1 °C (98.8 °F) SpO2: 93 % (10/06/24 1100) O2 flow rate: 2 L/MIN (10/05/24 2200) Supplemental O2 Delivery: Room Air, None (10/06/24 1200) Vital Signs Last 24 Hours: Systolic BP: Most Recent Systolic BP Av mmHg Min: 94 mmHg Max: 141 mmHg Temperature: Most Recent Temperature Av.6 C Min: 36.22 C Max: 37.11 C Pulse: Pulse Av Min: 60 Max: 76 Respirations: Resp Av.8 Min: 10 Max: 22 SpO2: SpO2 Av.1 % Min: 92 % Max: 100 % Constitutional: obese elderly female, in no acute distress, resting comfortably in bed HEENT: NC/AT, MMM, neck supple, PERRL CV: normal rate and rhythm, +soft murmur Chest: normal respiratory effort, lungs clear to auscultation Abdomen: normal: soft, non-distended, non-tender to palpation, bowel sounds normal, no masses or organomegaly Extremities: no clubbing, cyanosis, or edema, RUE AV fistula present Skin: warm, dry, intact: Neuro: alert, oriented to person, place, and time, no focal deficits Psych: appropriate mood and affect Telemetry: A sensed V paced, no evidence of NSVT Device Interrogation: Longest recorded episode of NSVT: 3 seconds (13 beats) On further discussion with patient's outpatient EP physician, Dr. Ricci, patient is recorded as having up to 10 sec NSVT. LABS: Labs reviewed as indicated below: Lab results within last 7 days (see chart for full results) Units 10/06/24 0410 HGB g/dL 8.6* HCT % 28.4* WBC K/uL 9.59 PLT K/uL 261 Lab results within last 7 days (see chart for full results) Units 10/06/24 0410 HGB g/dL 8.6* HCT % 28.4* WBC K/uL 9.59 PLT K/uL 261 Cardiac Studies: Most recent TTE 10/06/2024 Interpretation Summary The examination is adequate to evaluate the [...] mmHg. Moderate pulmonary hypertension is present. Cardiac Catheterization 04/13/2013 IMPRESSION and PLAN: Principal Problem: Ventricular tachycardia, non-sustained (HCC) (POA: Yes) Active Problems: Type 2 diabetes mellitus with hemoglobin A1c goal of less than 7.0% (HCC) (POA: Yes) Overview: ICD-10 update of inactive term Chronic diastolic heart failure (HCC) (POA: Yes) End stage renal disease on dialysis (HCC) (POA: Yes) POA = Present On Admission Candi Finley is a 63 yo F with a hx of SSS s/p ppm ( placed in [address] Ricci), HFpEF (EF 65%2020) paroxysmal atrial tachycardia, ESRD on HD MWF, pulmonary HTN, T2DM, HTN, hypothroidism, and MINISTERIO on CPAP who presented as a transfer from [facility] in the setting of multiple episodes of non-sustained polymorphic VT with reported episodes of syncope with prodrome. Non-Sustained polymorphic VT Syncope with prodrome Hx of SSS with ppm (2019) Subacute, HD stable. On review of patient's device interrogation- recorded several episodes of NSVT, with the longest being 3 sec (13 beats). However, discussion with patient's outpatient EP physician reported up to 10 seconds. At this time, lower suspicion that the patient's symptoms are attributable to her intermittent non-sustained arrhythmia given the short duration and low overall burden documented by her device, however will review further and follow up ischemic work up. Given her description of prodromal symptoms and proximity to her dialysis days, it is possible her symptoms may be orthostatic/vagal in nature however agree with ischemic workup and rule out of additional possible causes of syncope. Recommendations: -Will follow up with ischemic work up and cardiac catheterization -Continue amiodarone for now -Continue to monitor on telemetry -After cardiac cath results, will discuss patient's ICD candidacy further -Patient's case was discussed with her outpatient EP physician, Dr. Ricci, who is in agreement The EP service will continue to follow along with this patient's care at this time. The above patient was seen and discussed with Dr. Teran, attending physician. Patti Castillo DO PGY3 General Internal Medicine Cosigned by Shirley Teran MD at 10/14/2024 4:56 PM EDT Associated attestation - Shirley Teran MD - 10/14/2024 4:56 PM EDT I saw and evaluated the patient 10/06/2024. I have reviewed the resident/fellow physician note and agree. Patient comes in with recurrent syncope . The device interrogation at outside hospital shows runs of Polyorphic VT/ VF ( self limiting ) correlating with syncope . After extensive discussing with patient , her primary EP decision was made to proceed with ICD upgrade . The risks , benefits and alternatives of the procedure was discussed with patient and family in detial . They wishes to proceed with ICD upgrade * Barbie Srivastava PA-C - 10/06/2024 8:33 AM EDTAssociated Order(s): NEPHROLOGY CONSULT IP CONSULT - Nephrology [facility]-[address] [id number] Name: Candi Finley Location: [facility] H763/A Date: 10/06/2024 Time: 8:33 AM REQUESTING SERVICE: Cardiology REASON FOR CONSULT: ESRD on HD MWF, last session yesterday. HPI: 63 year old female with pmhx significant for ESRD on HD MWF via RUE AVF at [place], DM type 2, proliferative diabetic retinopathy, HTN, endometrial cancer who was admitted to Cardiology for management of syncope, non-sustained polymorphic VT. Patient reports SOB x 5 days. Cardiology planfor cardiac cath today. She is getting a bedside ECHO at this time. Patient reports her last hemodialysis was Friday, 3 hours 45 minutes duration. No issue with dialysis access. Estimated dry wt around 101 kg. Does make very little urine. Patient reports diarrhea. Patient denies fever, headache, dizziness, chest pain, abdominal pain, nausea, vomiting. PAST MEDICAL HISTORY: Past Medical History: Diagnosis [...] failure hemodialysis SBO (small bowel obstruction) ([facility]) 04/25/2017 Sleep apnea 07/2009 CPAP 11 cm H2O. C-flex 2 PAST SURGICAL HISTORY: Past Surgical History: Procedure Laterality Date ABD WALL HERNIA REPAIR, LAP, REDUCIBLE N/A 01/28/2022 LAPAROSCOPIC VENTRAL/UMBILICAL HERNIA REPAIR, REDUCIBLE W OR W/O MESH performed by Honorio Ashford MD at OR [facility] AV ACCESS, DIRECT ANASTOMOSIS Right 08/16/2021 ARTERIOVENOUS ANASTOMOSIS OPEN DIRECT ANY SITE performed by Sterling Cates MD at [facility] BREAST BIOPSY Left 12/26/2008 Usual Ductal Hyperplasia BREAST BIOPSY Left 09/20/2010 Benign BX LYMPH NODE DEEP AXIL Right 05/22/2021 BIOPSY LYMPH NODE DEEP AXILLARY OPEN performed by Diamond Rivero MD at OR [facility] COLONOSCOPY, DIAGNOSTIC (RECTUM) 12/02/2013 hyperplastic polyps, diverticulosis, repeat 5 yrs/done @ [facility] COLONOSCOPY, DIAGNOSTIC (RECTUM) 12/11/2017 adenomatous polyps, diverticulosis, repeat 5 yrs/[facility] COLONOSCOPY, DIAGNOSTIC (RECTUM) N/A 02/27/2023 diverticulosis/hemorrhoids/biopsies show adenomatous polyps/recall 5 years/[place] CORONARY ANGIOGRAPHY W/LEFT HEART CATH 04/13/2013 CORONARY ANGIOGRAPHY W/LEFT HEART CATH performed by Ulises Reed MD at CARDIAC [facility]S [facility] DIALYIS CIRCUIT VASCULAR EMBOLIZATION OCCLUSION ENDOVASC IMAGING Right 11/27/2021 EMBOLIZATION DIALYSIS CIRCUIT performed by Sterling Cates MD at [facility] EGD, FLEXIBLE, DIAGNOSTIC 05/03/2014 mild-mod inflammation/done @ [facility] EGD, FLEXIBLE, DIAGNOSTIC N/A 04/16/2017 ESOPHAGOGASTRODUODENOSCOPY (EGD), FLEXIBLE, TRANSORAL, DIAGNOSTIC performed by Félix Gilliam OR [facility] EGD, FLEXIBLE, DIAGNOSTIC 05/05/2020 mild-mod inflammation on bx / ESOPHAGOGASTRODUODENOSCOPY (EGD), FLEXIBLE, TRANSORAL, DIAGNOSTIC performed by Adin Borja MD at ENDOSCOPY [facility] EGD, FLEXIBLE, DIAGNOSTIC N/A 04/25/2021 ESOPHAGOGASTRODUODENOSCOPY (EGD), FLEXIBLE, TRANSORAL, DIAGNOSTIC performed by Honorio Almendarez MD atENDOSCOPY [facility] EGD, FLEXIBLE, DIAGNOSTIC 06/13/2021 gastrojejunal anastomosis characterized by ulceration, repeat 2 mo / [facility] IDENTIFY SENTINEL NODE, RADIOACTIVE TRACER Right 05/22/2021 INJECTION PROCEDURE FOR IDENTIFICATION SENTINEL NODE performed by Diamond Rivero MD at OR [facility] INFORMATION Left 2019 Pacemaker placement. INTRO CATH DIALYSIS CIRCUIT DX ANGIOGRAPHY FLUORO S&I Right 10/10/2022 AV FISTULOGRAM DIAGNOSTIC performed by Jose Devine MD at OR [facility] INTRO CATH DIALYSIS CIRCUIT W/TRANSCATH PLACEMENT IV STENT Right 03/19/2022 AV FISTULOGRAM STENT & PERIPHERAL ANGIOPLASTY performed by Jose Devine MD at OR [facility] INTRO CATH DIALYSIS CIRCUIT W/TRANSCATH PLACEMENT IV STENT Right 05/13/2023 AV FISTULOGRAM STENT & PERIPHERAL ANGIOPLASTY performed by Williams Matt MD at OR [facility] INTRO CATH DIALYSIS CIRCUIT W/TRANSCATH PLACEMENT IV STENT Right 12/02/2023 AV FISTULOGRAM STENT & PERIPHERAL ANGIOPLASTY performed by Micheal Urena MD at OR [facility] INTRO CATH DIALYSIS CIRCUIT W/TRANSCATH PLACEMENT IV STENT Right 06/01/2024 AV FISTULOGRAM STENT & PERIPHERAL ANGIOPLASTY performed by Beto Torrez MD at OR [facility] INTRO CATH DIALYSIS CIRCUIT W/TRANSLUM BALLOON ANGIOPLASTY Right 11/27/2021 AV FISTULOGRAM & PERIPHERAL ANGIOPLASTY performed by Sterling Cates MD at OR [facility] INTRO CATH DIALYSIS CIRCUIT W/TRANSLUM BALLOON ANGIOPLASTY Right 05/30/2022 AV FISTULOGRAM & PERIPHERAL ANGIOPLASTY performed by Beto Torrez MD at OR [facility] INTRO CATH DIALYSIS CIRCUIT W/TRANSLUM BALLOON ANGIOPLASTY Right 02/25/2023 AV FISTULOGRAM & PERIPHERAL ANGIOPLASTY performed by Jose Devine MD at OR [facility] INTRO CATH DIALYSIS CIRCUIT W/TRANSLUM BALLOON ANGIOPLASTY Right 03/30/2024 AV FISTULOGRAM & PERIPHERAL ANGIOPLASTY performed by Micheal Urena MD at OR [facility] INTRO CATH DIALYSIS CIRCUIT W/TRANSLUM BALLOON ANGIOPLASTY Right 09/16/2024 AV FISTULOGRAM & PERIPHERAL ANGIOPLASTY performed by Sterling Cates MD at OR [facility] IR DUPLEX ULTRASOUND (FOR INTERVENTIONAL RADIOLOGY USE ONLY) 03/02/2021 IR FISTULAGRAM AV DIALYSIS SHUNT IR VENOUS ACCESS NON-MEDIPORT 07/18/2022 LAPAROSCOPE PROCEDURE, LIVER N/A 04/16/2017 UNLISTED LAPAROSCOPIC PROCEDURE LIVER performed by Sukumar Polanco MD at [facility] LAPAROSCOPE PROCEDURE, LIVER N/A 01/28/2022 UNLISTED LAPAROSCOPIC PROCEDURE LIVER performed by Honorio Ashford MD at OR [facility] LAPAROSCOPIC GASTRIC BYPASS/JODY-EN-Y N/A 04/16/2017 LAPAROSCOPIC GASTRIC RESTRICTIVE BYPASS JODY EN Y performed by Sukumar Polanco MD at [facility] LAPAROSCOPY; CHOLECYSTECTOMY N/A 04/16/2017 LAPAROSCOPIC CHOLECYSTECTOMY performed by Sukumar Polanco MD at OR [facility] MISCELLANEOUS ORDER ([facility] ONLY) 05/2009 breast biopsy/ [...] performed by Sukumar Polanco MD at OR [facility] REPLACE,COMP,FLACO CENT ACC DEV N/A 03/22/2021 REPLACEMENT COMPLETE TUNNELED CENTRAL CATHETER NO PORT performed by Luis Fernando Hassan DO at OR [facility] REVISE STOMACH-BOWEL FUSION N/A 01/28/2022 REVISION GASTROJEJUNAL ANASTOMOSIS performed by Honorio Ashford MD at OR [facility] RMV MALG LSN TRK/ARM/LG >4.0CM Right 05/22/2021 EXCISION MALIGNANT TRUNK ARM LEG OVER 4CM performed by Diamond Rivero MD at OR [facility] RPR AA HERNIA 1ST 3-10 CM REDUCIBLE N/A 12/11/2022 INCISIONAL/VENTRAL/SPIGELIAN HERNIA REPAIR INITIAL 3-10 CM REDUCIBLE performed by Eros Dash MD at OR [facility] TOTAL ABD HYSTERECTOMY W/WO REMOVAL OF TUBE(S) Bilateral age 33 TOTAL HYSTERECTOMY TAHBSO (endometrial ca) TRANSECTION VAGUS NRV,TRUNCAL N/A 01/28/2022 LAPAROSCOPIC TRANSECTION VAGUS NERVES TRUNCAL performed by Honorio Ashford MD at OR [facility] UPPER GI ENDOSCOPY ALLERGIES: Chidi inhibitors FAMILY HISTORY: Family History Problem Relation Name [...] Topics Alcohol use: No Drug use: No ROS: as above, otherwise all other ROS are negative PHYSICAL EXAMINATION: Most Recent Vital Signs: BP: 129 mmHg/45 mmHg (10/06/24699) Pulse: 60 (10/06/24699) Resp: 10 (10/06/24699) Temp: 36.22 C (10/06/24 0400) Temp Summary: Temp Min: 36.2 °C (97.2 °F) Max: 37.1 °C (98.8 °F) SpO2: 100 % (10/06/24699) O2 flow rate: 2 L/MIN (10/05/240) Supplemental O2 Delivery: Non-Invasive CPAP/BiPAP (10/06/24699) Vital Signs Last 24 Hours: Systolic BP: Most Recent Systolic BP Av.6 mmHg Min: 94 mmHg Max: 141 mmHg Temperature: Most Recent Temperature Av.7 C Min: 36.22 C Max: 37.11 C Pulse: Pulse Av.3 Min: 60 Max: 76 Respirations: Resp Av.3 Min: 10 Max: 22 SpO2: SpO2 Av.5 % Min: 92 % Max: 100 % I&O Brief: Intake/Output Summary (Last 24 hours) at 10/06/2024 0833 Last data filed at 10/06/2024 0800 Gross per 24 hour Intake 928.7 ml Output 50 ml Net 878.7 ml PHYSICAL EXAMINATION: Constitutional: No acute respiratory distress. Tolerates room air. Non-toxic. Pleasant HEENT: NCAT. No icterus, EOMi, MMM CV: regular rate, regular rhythm Chest: normal respiratory effort Abdomen: soft, no tenderness, nondistended Extremities: +trace LEs edema. Spontaneous movement in all extremities Skin: warm, dry Neuro: awake, alert, oriented Psych: appropriate mood Dialysis access: RUE AVF. +thrills LABS: Labs reviewed as indicated below: CHEMISTRY: BUN, Creatinine, GFR Estimated, Sodium, Potassium, Chloride, Carbon Dioxide, Glucose, Calcium (see below for most recent value): Lab Results Component Value Date/Time BUN 36 (H) 10/06/2024 04:10 AM BUN 41 (H) 04/26/2020 09:34 AM CREAT 6.6 (H) 10/06/2024 04:10 AM CREAT 3.0 (A) 06/13/2021 12:00 AM CREAT 1.7 (H) 04/26/2020 09:34 AM GFRESTIMATED 32.9 (L) 04/26/2020 09:34 AM NA 130 (L) 10/06/2024 04:10 AM NA 140 04/26/2020 09:34 AM POTASSIUM 10/06/2024 04:10 AM Comment: Specimen too hemolyzed. Reorder if needed. POTASSIUM 3.9 12/11/2022 12:43 PM POTASSIUM 3.9 06/13/2021 12:00 AM POTASSIUM 4.4 04/26/2020 09:34 AM CL 89 (L) 10/06/2024 04:10 AM CL 102 04/26/2020 09:34 AM CO2 27 10/06/2024 04:10 AM CO2 27 04/26/2020 09:34 AM CA 9.6 10/06/2024 04:10 AM CA 9.5 04/26/2020 09:34 AM CREATININE: Creatinine (see below for last three most recent values): Lab Results Component Value Date/Time CREAT 6.6 (H) 10/06/2024 04:10 AM CREAT 6.1 (H) 10/05/2024 05:15 PM CREAT 4.4 (H) 12/19/2022 07:56 AM CREAT 3.0 (A) 06/13/2021 12:00 AM CREAT 1.71 (A) 11/02/2020 12:00 AM CREAT 1.7 (H) 04/26/2020 09:34 AM CREAT 1.6 (H) 04/06/2020 11:45 AM CREAT 1.8 (H) 03/17/2020 09:21 AM BLOOD COUNT: WBC, Hgb, Platelets (see below for most recent value): Lab Results Component Value Date/Time WBC 9.59 10/06/2024 04:10 AM WBC 10.00 03/17/2020 09:21 AM HGB 8.6 (L) 10/06/2024 04:10 AM HGB 13.9 06/13/2021 12:00 AM HGB 11.3 (L) 03/17/2020 09:21 AM PLT 261 10/06/2024 04:10 AM PLT 225 03/17/2020 09:21 AM HEMOGLOBIN: Hgb (see below for last three most recent values): Lab Results Component Value Date/Time HGB 8.6 (L) 10/06/2024 04:10 AM HGB 9.2 (L) 12/19/2022 07:56 AM HGB 8.7 (L) 12/18/2022 07:09 AM HGB 13.9 06/13/2021 12:00 AM HGB 12.2 11/02/2020 12:00 AM HGB 11.3 (L) 03/17/2020 09:21 AM HGB 12.2 04/26/2019 12:14 PM HGB 10.6 (L) 12/03/2018 11:53 AM MEDICATIONS: reviewed IMAGING: Reviewed. No new image IMPRESSION: 63 year old female with pmhx significant for ESRD on HD MWF via RUE AVF at [place], DM type 2, proliferative diabetic retinopathy, HTN, endometrial cancer who was admitted to Cardiology for management of syncope, non-sustained polymorphic VT. Syncope non-sustained polymorphic VT Cardiology plan for cardiac cath today On amiodarone infusion ESRD on HD MWF: Last hemodialysis was Friday [place] bone disease Hyperphosphatemia PLAN: No indication for urgent dialysis today. Patient is going for cardiac cath later today Next hemodialysis 10/07. Nephro requested for first shift dialysis to assist with early discharge Hgb 8s. Cont EPO on dialysis Cont phos binder Recommend renal dialysis diet when able to have PO diet. Discussed with primary team. Patient was discussed with nephrology attending. I spent a total of 60 minutes coordinating, documenting, and providing care for this patient excluding time spent in the performance of separately billed services or time spent by another provider/QHP. Cosigned by Oscar Burris MD at 10/06/2024 3:04 PM EDT Associated attestation - Oscar Burris MD - 10/06/2024 3:04 PM EDT I have reviewed the advanced practitioner's documentation on the date of service referenced in note, and I agree with, and take responsibility for the plan of care. documented in this encounter Nursing Notes * Lizbeth Marquez BSN - 10/14/2024 12:20 PM EDT I have reviewed and agree with the charting of Kenan LOPEZ * Sumi Montez LPN - 10/13/2024 12:49 PM EDT POST ASSESSMENT COMMUNICATION NOTE - HEMODIALYSIS Attention to: Primary Nurse Patient arriving via: Bed Reason for SBAR handoff: Postdialysis treatment. Treatment: Prescribed treatment time: 3.75hours Duration of Treatment (minutes): 235 minutes (10/13/24 1230) Dialysis Treatment Less than Prescribed: NO Prescribed UF: 2-3 liters Dialysis: 2000 ml (10/13/24 1230) Reason prescribed UF was not achieved: n/a Blood Returned: Yes Potassium Bath: As ordered for entire treatment, 2K+ 2.5 Ca Post Dialysis Vitals: Temp: 36.4 °C (97.5 °F) (10/13/24 1230) Pulse: 65 (10/13/24 123) Resp: 15 (10/13/241229) SpO2: 97 % (10/13/24 123) O2 flow rate: 1 L/MIN (10/12/24 2220) Supplemental O2 Delivery: Room Air, None (10/13/24 123) Pain Assessment Flowsheet Row Most Recent Value Pain Assessment Scale [facility] Adult Scale 0-10 (18 years and older) Pain Score 0 (no pain) Pre BP Sittin/43 (10/13/24 0813) Post BP Sittin/42 (10/13/24 123) Pre-Treatment Weight: 108.9 kg (240 lb 1.3 oz) (10/13/24 0813) Post-Treatment Weight: 106.3 kg (234 lb 5.6 oz) (10/13/241229) Treatment Weight Change (kg): -2.6 kg (10/13/241229) Medications administered, see MAR/flowsheets for further information: EPO (Erythropoietin) Access: Arteriovenous fistula, Right armneedle size 15G Function: No problems Date/time to remove pressure dressin10/14/24@0600 Dialysis Tx Tolerance: Tolerated well (10/13/241229) Intervention : UF- Goal decreased (10/13/24 0933) Patient educated on: N/A- chronic patient, education not required Additional patient needs/interventions during treatment: N/A No bleeding from dialysis access. Instructed to remove pressure dressing at 0600 on 10/14/24. 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 Neuro Assessment: Neurological: Neurological WNL Neuro WNL: WNL - within normal limits (10/12/241918) Level of Consciousness: Alert (10/12/241918) Orientation Level: Oriented x4 (10/12/241918) Cognition: Appropriate for age (10/12/241918) Speech: Clear (10/12/241918) Facial Drooping: Face symmetrical (10/12/241918) Extinction/Inattention: None (10/12/241918) Pupil Assessment: Yes (10/09/24 0400) Right Pupil Size (mm): 3 (10/09/24 0400) Right Pupil Shape/Description: Round (10/09/24 0400) Right Pupil Reaction: Reactive (10/09/24 0400) Left Pupil Size (mm): 3 (10/09/24 0400) Left Pupil Shape/Description: Round (10/09/24 0400) Left Pupil Reaction: Reactive (10/09/24 0400) Behaviors/Mood/Neuro Symptoms: Calm (10/12/24 1600) Hand Grasp/Motor Function/Sensation Assessment: Grasp (10/12/241918) Right Hand Grasp: Strong (10/12/241918) Left Hand Grasp: Strong (10/12/241918) Right Foot Dorsiflexion: Strong (10/12/24 1600) Left Foot Dorsiflexion: Strong (10/12/24 1600) Right Foot Plantar Flexion: Strong (10/12/24 1600) Left Foot Plantar Flexion: Strong (10/12/24 1600) Sensation: RUE sensation;LUE sensation;RLE sensation;LLE sensation (10/12/24 1343) Motor Strength: RUE motor strength;LUE motor strength;RLE motor strength;LLE motor strength (10/12/241918) RUE Motor Strength: 5-Active movement with full resistance (10/12/241918) LUE Motor Strength: 5-Active movement with full resistance (10/12/241918) RLE Motor Strength: 5-Active movement with full resistance (10/12/241918) LLE Motor Strength: 5-Active movement with full resistance (10/12/241918) [place] Coma Scale - For patients greater than two years old Eyes Open: Spontaneous (10/12/241918) Best Verbal Response: Verbally appropriate for age (10/12/241918) Best Motor Response: Obeys commands appropriate for age (10/12/241918) Coma Score: 15 (10/12/241918) Additional Neurological Information: NA Assessment: BP: 100/42 (10/13/24318) Temp: 36.7 °C (98.1 °F) (10/13/24318) Pulse: 60 (10/13/24609) Resp: 18 (10/13/24318) SpO2: 95 % (10/13/24609) O2 flow rate: 1 L/MIN (10/12/242219) Supplemental O2 Delivery: Room Air, None (10/13/24609) Pain Assessment Flowsheet Row Most Recent Value Pain Assessment Scale [facility] Adult Scale 0-10 (18 years and older) Pain Score 0 (no pain) Last dose of pain medication administered NA time NA Jamaal Score: Jamaal Score (auto-calculation): 20 (10/12/241918) Diabetic: Yes Last Blood Sugar: Glucose (Bedside): 446 (10/12/242218) Dialysis Access: AV fistula Continuous medications: NA Labs needing collected: NA @ NA see lab results How does the patient take their medications: Whole Emotional/Personal Events and Special Needs: NA * Lalito Castaneda RN - 10/12/2024 6:49 PM EDT NURSING AMBULATION OXYGEN TEST [address] [address] Name: Candi Finley Location: [facility] H879/A Date: 10/12/2024 Time: 6:49 PM Repeat test Date of test: 10/12/2024 (needs to be completed within 48 hours of discharge) O2 saturation on room air at rest: 90 % O2 saturation at rest is less than or equal to 88 %: no O2 saturation on room air during ambulation: 84 % O2 saturation during ambulation is less than or equal to 88 %: yes; O2 was applied at 2 liters nasal cannula to improve saturations to 92 % while ambulating * Nery Colon RN - 10/12/2024 4:19 PM EDT PERIOP TO IP HANDOFF COMMUNICATION NOTE [facility] [address] Name: Candi Finley AGE: [age] year old Location: OR [facility]/OR Date: 10/12/2024 Attention to: Lalito Castaneda Report from: Nery Colon RN Patient arriving via: Bed Time of call: 4:19 PM Phone Ext: [phone] Reason for SBAR (Situation, Background, Assessment, Recommendation) handoff: OR Sending to: [facility] Emotional/Personal Events & Special Needs: none Prescriptions in chart: No Code Status: Full Code Safety Concerns: no safety concerns identified Allergies: Chidi inhibitors PMH: Past Medical History: Diagnosis Date Body mass index 40 and over, adult CHF NYHA class I ([facility]) 07/2009 Chronic marginal ulcer Deficiency of other vitamins Vit D Depressive disorder, not elsewhere classified Dialysis patient ([facility]) Diverticulosis of colon (without mention of hemorrhage) 12/02/2013 sigmoid & descending colon DM type 2 causing eye disease ([facility]) DM type 2 causing neurological disease ([facility]) neuropathy since 2006 DM type 2 causing renal disease ([facility]) DM type 2, goal A1c below [address] Monte Dyslipidemia, goal LDL below 100 primarily high triglycerides Endometrial cancer ([facility]) 1993 ESRD (end stage renal disease) on dialysis ([facility]) 03/14/2021 HTN, goal below 130/80 Kidney disease, chronic, stage III (GFR 30-59 ml/min) ([facility]) 10/02/2011 More specified code listed on PL Historical Malignant melanoma of right upper extremity ([facility]) 05/07/2021 Malignant neoplasm of corpus uteri ([facility]) 1993 Melanoma ([facility]) L calf R arm Motion sickness Neuropathy, diabetic ([facility]) 02/18/2013 Osteoarthritis of hip mild to mod bilat hip pain Other specified anemias low iron Other specified glaucoma denied by patient PONV (postoperative nausea and vomiting) Renal failure hemodialysis SBO (small bowel obstruction) ([facility]) 04/25/2017 Sleep apnea 07/2009 CPAP 11 cm H2O. C-flex 2 PSH: Past Surgical History: Procedure Laterality Date ABD WALL HERNIA REPAIR, LAP, REDUCIBLE N/A 01/28/2022 LAPAROSCOPIC VENTRAL/UMBILICAL HERNIA REPAIR, REDUCIBLE W OR W/O MESH performed by Honorio Ashford MD at OR [facility] AV ACCESS, DIRECT ANASTOMOSIS Right 08/16/2021 ARTERIOVENOUS ANASTOMOSIS OPEN DIRECT ANY SITE performed by Sterling Cates MD at OR [facility] BREAST BIOPSY Left 12/26/2008 Usual Ductal Hyperplasia BREAST BIOPSY Left 09/20/2010 Benign BX LYMPH NODE DEEP AXIL Right 05/22/2021 BIOPSY LYMPH NODE DEEP AXILLARY OPEN performed by Diamond Rivero MD at OR [facility] COLONOSCOPY, DIAGNOSTIC (RECTUM) 12/02/2013 hyperplastic polyps, diverticulosis, repeat 5 yrs/done @ [facility] COLONOSCOPY, DIAGNOSTIC (RECTUM) 12/11/2017 adenomatous polyps, diverticulosis, repeat 5 yrs/[facility] COLONOSCOPY, DIAGNOSTIC (RECTUM) N/A 02/27/2023 diverticulosis/hemorrhoids/biopsies show adenomatous polyps/recall 5 years/[place]oscopy/[place] COR[place]ARY ANGIOGRAPHY W/LEFT HEART CATH 04/13/2013 CORONARY ANGIOGRAPHY W/LEFT HEART CATH performed by Ulises Reed MD at CARDIAC LABS [facility] DIALYIS CIRCUIT VASCULAR EMBOLIZATION OCCLUSION ENDOVASC IMAGING Right 11/27/2021 EMBOLIZATION DIALYSIS CIRCUIT performed by Sterling Cates MD at OR [facility] EGD, FLEXIBLE, DIAGNOSTIC 05/03/2014 mild-mod inflammation/done @ [facility] EGD, FLEXIBLE, DIAGNOSTIC N/A 04/16/2017 ESOPHAGOGASTRODUODENOSCOPY (EGD), FLEXIBLE, TRANSORAL, DIAGNOSTIC performed by Félix Gilliam OR [facility] EGD, FLEXIBLE, DIAGNOSTIC 05/05/2020 mild-mod inflammation on bx / ESOPHAGOGASTRODUODENOSCOPY (EGD), FLEXIBLE, TRANSORAL, DIAGNOSTIC performed by Adin Borja MD at ENDOSCOPY [facility] EGD, FLEXIBLE, DIAGNOSTIC N/A 04/25/2021 ESOPHAGOGASTRODUODENOSCOPY (EGD), FLEXIBLE, TRANSORAL, DIAGNOSTIC performed by Honorio Almendarez MD atENDOSCOPY [facility] EGD, FLEXIBLE, DIAGNOSTIC 06/13/2021 gastrojejunal anastomosis characterized by ulceration, repeat 2 mo / [facility] IDENTIFY SENTINEL NODE, RADIOACTIVE TRACER Right 05/22/2021 INJECTION PROCEDURE FOR IDENTIFICATION SENTINEL NODE performed by Diamond Rivero MD at OR [facility] INFORMATION Left 2019 Pacemaker placement. INTRO CATH DIALYSIS CIRCUIT DX ANGIOGRAPHY FLUORO S&I Right 10/10/2022 AV FISTULOGRAM DIAGNOSTIC performed by Jose Devine MD at OR [facility] INTRO CATH DIALYSIS CIRCUIT W/TRANSCATH PLACEMENT IV STENT Right 03/19/2022 AV FISTULOGRAM STENT & PERIPHERAL ANGIOPLASTY performed by Jose Devine MD at OR [facility] INTRO CATH DIALYSIS CIRCUIT W/TRANSCATH PLACEMENT IV STENT Right 05/13/2023 AV FISTULOGRAM STENT & PERIPHERAL ANGIOPLASTY performed by Williams Matt MD at OR [facility] INTRO CATH DIALYSIS CIRCUIT W/TRANSCATH PLACEMENT IV STENT Right 12/02/2023 AV FISTULOGRAM STENT & PERIPHERAL ANGIOPLASTY performed by Micheal Urena MD at OR [facility] INTRO CATH DIALYSIS CIRCUIT W/TRANSCATH PLACEMENT IV STENT Right 06/01/2024 AV FISTULOGRAM STENT & PERIPHERAL ANGIOPLASTY performed by Beto Torrez MD at OR [facility] INTRO CATH DIALYSIS CIRCUIT W/TRANSLUM BALLOON ANGIOPLASTY Right 11/27/2021 AV FISTULOGRAM & PERIPHERAL ANGIOPLASTY performed by Sterling Cates MD at OR [facility] INTRO CATH DIALYSIS CIRCUIT W/TRANSLUM BALLOON ANGIOPLASTY Right 05/30/2022 AV FISTULOGRAM & PERIPHERAL ANGIOPLASTY performed by Beto Torrez MD at OR [facility] INTRO CATH DIALYSIS CIRCUIT W/TRANSLUM BALLOON ANGIOPLASTY Right 02/25/2023 AV FISTULOGRAM & PERIPHERAL ANGIOPLASTY performed by Jose Devine MD at OR [facility] INTRO CATH DIALYSIS CIRCUIT W/TRANSLUM BALLOON ANGIOPLASTY Right 03/30/2024 AV FISTULOGRAM & PERIPHERAL ANGIOPLASTY performed by Micheal Urena MD at OR [facility] INTRO CATH DIALYSIS CIRCUIT W/TRANSLUM BALLOON ANGIOPLASTY Right 09/16/2024 AV FISTULOGRAM & PERIPHERAL ANGIOPLASTY performed by Sterling Cates MD at OR [facility] IR DUPLEX ULTRASOUND (FOR INTERVENTIONAL RADIOLOGY USE ONLY) 03/02/2021 IR FISTULAGRAM AV DIALYSIS SHUNT IR VENOUS ACCESS NON-MEDIPORT 07/18/2022 LAPAROSCOPE PROCEDURE, LIVER N/A 04/16/2017 UNLISTED LAPAROSCOPIC PROCEDURE LIVER performed by Sukumar Polanco MD at OR [facility] LAPAROSCOPE PROCEDURE, LIVER N/A 01/28/2022 UNLISTED LAPAROSCOPIC PROCEDURE LIVER performed by Honorio Ashford MD at OR [facility] LAPAROSCOPIC GASTRIC BYPASS/JODY-EN-Y N/A 04/16/2017 LAPAROSCOPIC GASTRIC RESTRICTIVE BYPASS JODY EN Y performed by Sukumar Polanco MD at OR [facility] LAPAROSCOPY; CHOLECYSTECTOMY N/A 04/16/2017 LAPAROSCOPIC CHOLECYSTECTOMY performed by Sukumar Polanco MD at [facility] MISCELLANEOUS ORDER ([facility] ONLY) 05/2009 breast biopsy/ [...] performed by Sukumar Polanco MD at OR [facility] REPLACE,COMP,FLACO CENT ACC DEV N/A 03/22/2021 REPLACEMENT COMPLETE TUNNELED CENTRAL CATHETER NO PORT performed by Luis Fernando Hassan DO at OR [facility] REVISE STOMACH-BOWEL FUSION N/A 01/28/2022 REVISION GASTROJEJUNAL ANASTOMOSIS performed by Honorio Ashford MD at OR [facility] RMV MALG LSN TRK/ARM/LG >4.0CM Right 05/22/2021 EXCISION MALIGNANT TRUNK ARM LEG OVER 4CM performed by Diamond Rivero MD at OR [facility] RPR AA HERNIA 1ST 3-10 CM REDUCIBLE N/A 12/11/2022 INCISIONAL/VENTRAL/SPIGELIAN HERNIA REPAIR INITIAL 3-10 CM REDUCIBLE performed by Eros Dash MD at OR [facility] TOTAL ABD HYSTERECTOMY W/WO REMOVAL OF TUBE(S) Bilateral age 33 TOTAL HYSTERECTOMY TAHBSO (endometrial ca) TRANSECTION VAGUS NRV,TRUNCAL N/A 01/28/2022 LAPAROSCOPIC TRANSECTION VAGUS NERVES TRUNCAL performed by Honorio Ashford MD at OR [facility] UPPER GI ENDOSCOPY Isolation: Isolation: Droplet Procedure: mouna Type of Anesthesia: General endotracheal anesthesia Block: none IV intake: 500 mL EBL: OR: 0 mL PACU: 0 mL Urine output: OR 0 mL PACU 0 mL IUBC ([place]): Incision location: na Dressing location: na Time of last skin assessment: 1600 Pressure injuries or areas of concern: none Lines: Arterial Line Left Radial (Active) Status Alcohol disinfectant cap;Zeroed and leveled;Continuous flush / Infusion;Good Wave Form;Positive Blood Return 10/12/24 1530 Tubing Changed No 10/12/24 1530 Site Description Without redness, swelling or drainage 10/12/24 1530 Site Intervention None required 10/12/24 1530 Dressing Assessment Dressing clean, dry, and intact 10/12/24 1530 Dressing Intervention None required 10/12/24 1530 Number of days: 0 Midline Catheter Left;Upper Arm (Active) Status Fluids infusing 10/12/24 1530 Tubing Changed No 10/12/24 153 Site Description Without redness, swelling or drainage 10/12/24 1530 Site Intervention None required 10/12/24 1530 Dressing Assessment Dressing clean, dry, and intact 10/12/24 1530 Catheter Securement Device Intact 10/12/24 1530 Dressing Intervention None required 10/12/24 1530 Dressing Change Due 10/19/24 10/12/24 1040 Line Necessity Yes, meets criteria 10/12/24 1530 Number of days: 8 Hemodialysis Arteriovenous Fistula Right Forearm (Active) AV Fistula/Graft Bruit Present 10/12/24 1530 AV Fistula/Graft Thrill Present 10/12/24 1530 Site Description (Other) Without redness, swelling or drainage 10/11/24 1143 Status Deaccessed 10/11/24 1143 Local Anesthetic None 10/11/24 1143 Site/Exit Site Prep Chlorhexidine;Soap and Water 10/11/24 0758 Needle Size - Arterial 15 Gauge 10/11/24 0758 Needle Size - Venous 15 Gauge 10/11/24 0758 Number of Attempts 1 10/11/24 0758 Dressing Assessment Dressing clean, dry, and intact 10/11/24 1143 Dressing Intervention Applied 10/11/24 1143 Deaccessed Clotting Control Manual Pressure 10/11/24 1143 Deaccessed Arterial Clot Time (Minutes) 5 minutes 10/11/24 1143 Deaccessed Venous Clot Time (Minutes) 5 minutes 10/11/24 1143 Number of days: 670 Vital Signs: BP: 102/49 (10/12/24 1615) Temp: 36.8 °C (98.2 °F) (10/12/24 1530) Pulse: 70 (10/12/24 1615) Resp: 16 (10/12/24 1615) SpO2: 94 % (10/12/24 1615) O2 flow rate: 2 L/MIN (10/12/24 1615) Glucose (Bedside): 151 (10/12/24 1138) Time of last pain medication: na Med: na Time of last antibiotic: na Med: na Time of last antiemetic: na Med: na PHYSICAL THERAPY INSTRUCTOR: no Drips: no Neurological: Neuro WNL: WNL - within normal limits (10/12/24 0900) Speech: Clear (10/12/24 1600) Level of Consciousness: Alert (10/12/24 1600) RUE Motor Strength: 5-Active movement with full resistance (10/12/24 1600) RLE Motor Strength: 5-Active movement with full resistance (10/12/24 1600) LUE Motor Strength: 5-Active movement with full resistance (10/12/24 1600) LLE Motor Strength: 5-Active movement with full resistance (10/12/24 1600) Right Pupil Size (mm): 3 (10/09/24 0400) Right Pupil Reaction: Reactive (10/09/24 0400) Left Pupil Size (mm): 3 (10/09/24 0400) Left Pupil Reaction: Reactive (10/09/24 0400) Coma Score: 15 (10/12/24 1600) Respiratory: Respiratory WNL: WNL- within normal limits (10/12/24 1600) Cough: Occasional;Non-Productive (10/12/24 1343) Dyspnea Occurence: None (10/12/24 1600) Respiratory Effort: Unlabored (10/12/24 1600) Oxygen therapy/ Mechanical vent Supplemental O2 Delivery: Nasal Cannula (10/12/24 1615) O2 %: 95 % (10/09/24 1906) O2 flow rate: 2 L/MIN (10/12/24 1615) NIV/CPAP Mask/Prongs: Mask (10/11/24 231) O2 Device Skin Integrity : Skin unaffected (10/11/242312) Interventions: Tubing adjusted (10/10/240) Cardiac: Cardiovascular WNL: X - Exceptions to WNL as documented below (10/12/24 1600) Heart Sounds: S1;S2;Murmur (10/12/24 1343) Rhythm: Paced (10/12/24 1600) AR interval: 0.2 seconds (10/08/24 2000) QRS: 0.19 seconds (10/12/24 0900) Extremities: +Sensation (10/12/24 1530) Pulses Right: Dorsalis Pedis +;Radial + (10/12/24 0900) Pulses Left: Dorsalis Pedis +;Radial + (10/12/24 09) Edema Location: Right Lower Extremity (RLE);Left Lower Extremity (LLE) (10/11/24 1439) LUE Edema Assessment: Trace (10/11/24 1439) RLE Edema Assessment: +1 - Description (10/12/24 1600) LLE Edema Assessment: +1 - Description (10/12/24 1600) Generalized Edema Assessment: Trace (10/10/24 2130) Capillary Refill: 3 seconds (10/12/24 1600) GI: GI WNL: WNL - within normal limits (10/12/24 1600) Abdomen: Soft;Non-distended;Non-tender (10/12/24 1343) : WNL: X - Exceptions to WNL as documented below (10/12/24 1600) Urine Description: Other-Describe (no urine to assess) (10/12/24 1600) Due to Void: 2129 Integumentary:Integumentary WNL: X - Exceptions to WNL as documented below (10/12/24 1600) Skin Description: Dry;Warm (10/12/24 1343) Skin Color: Ecchymosis (10/12/24 1343) Skin Variations: Other - Describe (see below) (10/12/24 1600) Jamaal Score (auto-calculation): 20 (10/12/24 0900) Family updated on transfer: no Additional Assessment Information: NA * Nery Colon RN - 10/12/2024 3:43 PM EDT Dual Licensed Skin Assessment completed by Nery Mark and Misti Avitia RN. The patient is/has a N/A Skin Breakdown (includes non blanchable erythema): Yes. Wound Type: Other, location right forearm old infiltration * Artie Gamez RN - 10/12/2024 1:58 PM EDT Dual Licensed Skin Assessment completed by Artie Loyola RN and Jerri Rodriguez RN. The patient is/has a N/A Skin Breakdown (includes non blanchable erythema): Yes. Wound Type: Other, location IV Infiltration Right Forearm Wound Ostomy Nurse Notified: No - care per ordered treatment Nursing interventions: Keep wound clean/dry/intact * Lalito Castaneda RN - 10/12/2024 1:46 PM EDT NURSING AMBULATION OXYGEN TEST [address] [id number] Name: Candi Finley Location: OR [facility] Date: 10/12/2024 Time: 1:46 PM Date of test: 10/12/2024 (needs to be completed within 48 hours of discharge) O2 saturation on room air at rest: 94 % O2 saturation at rest is less than or equal to 88 %: no O2 saturation on room air during ambulation: 91 % O2 saturation during ambulation is less than or equal to 88 %: no * Lalito Castaneda RN - 10/12/2024 12:59 PM EDT IP TO PERIOP HANDOFF COMMUNICATION NOTE [address] [id number] Name: Candi Finley AGE: [age] year old Location: [facility] H879/[id number] Date: 10/12/2024 Attention to: Pacu Report from: Lalito Castaneda RN Patient arriving via: Bed Time of Call: 1:00 PM Phone Ext.: [phone] Reason for SBAR handoff: Procedure/Diagnostic/Treatment MOUNA Consent: Emotional/Personal Events & Special Needs: na Allergies: Chidi inhibitors PMH: Past Medical History: Diagnosis Date Body mass index 40 and over, adult CHF NYHA class I ([facility]LY [facility]) 07/2009 Chronic marginal ulcer Deficiency of other vitamins Vit D Depressive disorder, not elsewhere classified Dialysis patient (HCC) Diverticulosis of colon (without mention of hemorrhage) 12/02/2013 sigmoid & descending colon 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 DM type 2 causing renal disease ([facility]) DM type 2, goal A1c below [address] Monte Dyslipidemia, goal LDL below 100 primarily high triglycerides Endometrial cancer ([facility]) 1993 ESRD (end stage renal disease) on dialysis ([facility]) 03/14/2021 HTN, goal below 130/80 Kidney disease, chronic, stage III (GFR 30-59 ml/min) ([facility]) 10/02/2011 More specified code listed on PL Historical Malignant melanoma of right upper extremity ([facility]) 05/07/2021 Malignant neoplasm of corpus uteri ([facility]) 1993 Melanoma ([facility]) L calf R arm Motion sickness Neuropathy, diabetic ([facility]) 02/18/2013 Osteoarthritis of hip mild to mod bilat hip pain Other specified anemias low iron Other specified glaucoma denied by patient PONV (postoperative nausea and vomiting) Renal failure hemodialysis SBO (small bowel obstruction) ([facility]) 04/25/2017 Sleep apnea 07/2009 CPAP 11 cm H2O. C-flex 2 PSH: Past Surgical History: Procedure Laterality Date ABD WALL HERNIA REPAIR, LAP, REDUCIBLE N/A 01/28/2022 LAPAROSCOPIC VENTRAL/UMBILICAL HERNIA REPAIR, REDUCIBLE W OR W/O MESH performed by Honorio Ashford MD at OR [facility] AV ACCESS, DIRECT ANASTOMOSIS Right 08/16/2021 ARTERIOVENOUS ANASTOMOSIS OPEN DIRECT ANY SITE performed by Sterling Cates MD at [facility] BREAST BIOPSY Left 12/26/2008 Usual Ductal Hyperplasia BREAST BIOPSY Left 09/20/2010 Benign BX LYMPH NODE DEEP AXIL Right 05/22/2021 BIOPSY LYMPH NODE DEEP AXILLARY OPEN performed by Diamond Rivero MD at OR [facility] COLONOSCOPY, DIAGNOSTIC (RECTUM) 12/02/2013 hyperplastic polyps, diverticulosis, repeat 5 yrs/done @ [facility] COLONOSCOPY, DIAGNOSTIC (RECTUM) 12/11/2017 adenomatous polyps, diverticulosis, repeat 5 yrs/[facility] COLONOSCOPY, DIAGNOSTIC (RECTUM) N/A 02/27/2023 diverticulosis/hemorrhoids/biopsies show adenomatous polyps/recall 5 years/Colonoscopy/[place] CORONARY ANGIOGRAPHY W/LEFT HEART CATH 04/13/2013 CORONARY ANGIOGRAPHY W/LEFT HEART CATH performed by Ulises Reed MD at CARDIAC LABS [facility] DIALYIS CIRCUIT VASCULAR EMBOLIZATION OCCLUSION ENDOVASC IMAGING Right 11/27/2021 EMBOLIZATION DIALYSIS CIRCUIT performed by Sterling Cates MD at OR [facility] EGD, FLEXIBLE, DIAGNOSTIC 05/03/2014 mild-mod inflammation/done @ [facility] EGD, FLEXIBLE, DIAGNOSTIC N/A 04/16/2017 ESOPHAGOGASTRODUODENOSCOPY (EGD), FLEXIBLE, TRANSORAL, DIAGNOSTIC performed by Sukumar Polanco MDa OR [facility] EGD, FLEXIBLE, DIAGNOSTIC 05/05/2020 mild-mod inflammation on bx / ESOPHAGOGASTRODUODENOSCOPY (EGD), FLEXIBLE, TRANSORAL, DIAGNOSTIC performed by Adin Borja MD at ENDOSCOPY [facility] EGD, FLEXIBLE, DIAGNOSTIC N/A 04/25/2021 ESOPHAGOGASTRODUODENOSCOPY (EGD), FLEXIBLE, TRANSORAL, DIAGNOSTIC performed by Honorio Almendarez MD atENDOSCOPY [facility] EGD, FLEXIBLE, DIAGNOSTIC 06/13/2021 gastrojejunal anastomosis characterized by ulceration, repeat 2 mo / [facility] IDENTIFY SENTINEL NODE, RADIOACTIVE TRACER Right 05/22/2021 INJECTION PROCEDURE FOR IDENTIFICATION SENTINEL NODE performed by Diamond Rivero MD at OR [facility] INFORMATION Left 2019 Pacemaker placement. INTRO CATH DIALYSIS CIRCUIT DX ANGIOGRAPHY FLUORO S&I Right 10/10/2022 AV FISTULOGRAM DIAGNOSTIC performed by Jose Devine MD at OR [facility] INTRO CATH DIALYSIS CIRCUIT W/TRANSCATH PLACEMENT IV STENT Right 03/19/2022 AV FISTULOGRAM STENT & PERIPHERAL ANGIOPLASTY performed by Jose Devine MD at OR [facility] INTRO CATH DIALYSIS CIRCUIT W/TRANSCATH PLACEMENT IV STENT Right 05/13/2023 AV FISTULOGRAM STENT & PERIPHERAL ANGIOPLASTY performed by Williams Matt MD at OR [facility] INTRO CATH DIALYSIS CIRCUIT W/TRANSCATH PLACEMENT IV STENT Right 12/02/2023 AV FISTULOGRAM STENT & PERIPHERAL ANGIOPLASTY performed by Micheal Urena MD at OR [facility] INTRO CATH DIALYSIS CIRCUIT W/TRANSCATH PLACEMENT IV STENT Right 06/01/2024 AV FISTULOGRAM STENT & PERIPHERAL ANGIOPLASTY performed by Beto Torrez MD at OR [facility] INTRO CATH DIALYSIS CIRCUIT W/TRANSLUM BALLOON ANGIOPLASTY Right 11/27/2021 AV FISTULOGRAM & PERIPHERAL ANGIOPLASTY performed by Sterling Cates MD at OR [facility] INTRO CATH DIALYSIS CIRCUIT W/TRANSLUM BALLOON ANGIOPLASTY Right 05/30/2022 AV FISTULOGRAM & PERIPHERAL ANGIOPLASTY performed by Beto Torrez MD at OR [facility] INTRO CATH DIALYSIS CIRCUIT W/TRANSLUM BALLOON ANGIOPLASTY Right 02/25/2023 AV FISTULOGRAM & PERIPHERAL ANGIOPLASTY performed by Jose Devine MD at OR [facility] INTRO CATH DIALYSIS CIRCUIT W/TRANSLUM BALLOON ANGIOPLASTY Right 03/30/2024 AV FISTULOGRAM & PERIPHERAL ANGIOPLASTY performed by Micheal Urena MD at OR [facility] INTRO CATH DIALYSIS CIRCUIT W/TRANSLUM BALLOON ANGIOPLASTY Right 09/16/2024 AV FISTULOGRAM & PERIPHERAL ANGIOPLASTY performed by Sterling Cates MD at OR [facility] IR DUPLEX ULTRASOUND (FOR INTERVENTIONAL RADIOLOGY USE ONLY) 03/02/2021 IR FISTULAGRAM AV DIALYSIS SHUNT IR VENOUS ACCESS NON-MEDIPORT 07/18/2022 LAPAROSCOPE PROCEDURE, LIVER N/A 04/16/2017 UNLISTED LAPAROSCOPIC PROCEDURE LIVER performed by Sukumar Polanco MD at [facility] LAPAROSCOPE PROCEDURE, LIVER N/A 01/28/2022 UNLISTED LAPAROSCOPIC PROCEDURE LIVER performed by Honorio Ashford MD at [facility] LAPAROSCOPIC GASTRIC BYPASS/JODY-EN-Y N/A 04/16/2017 LAPAROSCOPIC GASTRIC RESTRICTIVE BYPASS JODY EN Y performed by Sukumar Polanco MD at [facility] LAPAROSCOPY; CHOLECYSTECTOMY N/A 04/16/2017 LAPAROSCOPIC CHOLECYSTECTOMY performed by Sukumar Polanco MD at OR [facility] MISCELLANEOUS ORDER ([facility] ONLY) 05/2009 breast biopsy/ [...] performed by Sukumar Polanco MD at OR [facility] REPLACE,COMP,FLACO CENT ACC DEV N/A 03/22/2021 REPLACEMENT COMPLETE TUNNELED CENTRAL CATHETER NO PORT performed by Luis Fernando Hassan DO at OR [facility] REVISE STOMACH-BOWEL FUSION N/A 01/28/2022 REVISION GASTROJEJUNAL ANASTOMOSIS performed by Honorio Ashford MD at OR [facility] RMV MALG LSN TRK/ARM/LG >4.0CM Right 05/22/2021 EXCISION MALIGNANT TRUNK ARM LEG OVER 4CM performed by Diamond Rivero MD at OR [facility] RPR AA HERNIA 1ST 3-10 CM REDUCIBLE N/A 12/11/2022 INCISIONAL/VENTRAL/SPIGELIAN HERNIA REPAIR INITIAL 3-10 CM REDUCIBLE performed by Eros Dash MD at OR [facility] TOTAL ABD HYSTERECTOMY W/WO REMOVAL OF TUBE(S) Bilateral age 33 TOTAL HYSTERECTOMY TAHBSO (endometrial ca) TRANSECTION VAGUS NRV,TRUNCAL N/A 01/28/2022 LAPAROSCOPIC TRANSECTION VAGUS NERVES TRUNCAL performed by Honorio Ashford MD at OR [facility] UPPER GI ENDOSCOPY Isolation: Droplet for Rhino Situation/Background Admission Date: 10/05/2024 Patient Service: Cardiology Med B Attending: Kaden Arana MD Level of Care: Med Surg [3] Assessment Vital Signs: BP: 111/81 (10/12/24 1138) Temp: 37.2 °C (99 °F) (10/12/24 1138) Pulse: 71 (10/12/24 1138) Resp: 18 (10/12/24 1138) SpO2: 92 % (10/12/24 1138) O2 flow rate: 0 L/MIN (10/11/24 2313) Glucose (Bedside): 151 (10/12/24 1138) Lines: Midline Catheter Left;Upper Arm (Active) Status Alcohol disinfectant cap;Capped/Locked;Flushes easily 10/12/24 09 Tubing Changed N/A 10/12/24 09 Site Description Without redness, swelling or drainage 10/12/24 09 Site Intervention Flushed 10/12/24 09 Dressing Assessment Dressing clean, dry, and intact 10/12/24 0900 Catheter Securement Device Intact 10/12/24 09 Dressing Intervention None required 10/12/24 09 Dressing Change Due 10/12/24 10/11/24 1412 Line Necessity Yes, meets criteria 10/09/24 1600 Number of days: 8 Hemodialysis Arteriovenous Fistula Right Forearm (Active) AV Fistula/Graft Bruit Present 10/12/24 0900 AV Fistula/Graft Thrill Present 10/12/24 09 Site Description (Other) Without redness, swelling or drainage 10/11/24 1143 Status Deaccessed 10/11/24 1143 Local Anesthetic None 10/11/24 1143 Site/Exit Site Prep Chlorhexidine;Soap and Water 10/11/24 0758 Needle Size - Arterial 15 Gauge 10/11/24 0758 Needle Size - Venous 15 Gauge 10/11/24 0758 Number of Attempts 1 10/11/24 0758 Dressing Assessment Dressing clean, dry, and intact 10/11/24 1143 Dressing Intervention Applied 10/11/24 1143 Deaccessed Clotting Control Manual Pressure 10/11/24 1143 Deaccessed Arterial Clot Time (Minutes) 5 minutes 10/11/24 1143 Deaccessed Venous Clot Time (Minutes) 5 minutes 10/11/24 1143 Number of days: 670 Restraints: No orders of the defined types were placed in this encounter. Labs: Please see Lab Flowsheet for lab values. Lab Comments: see labs Diet: Orders Placed This Encounter Procedures NPO Except Meds NPO: Additional Diet Information: na Intake and Output: Intake/Output Summary (Last 24 hours) at 10/12/2024 1259 Last data filed at 10/11/2024 1950 Gross per 24 hour Intake 240 ml Output 3000 ml Net -2760 ml Belongings Remaining with Patient: glasses What were AM meds taken with: water Time of last pain medication: 1130 Med: tylenol Time of last antibiotic: na Med: na Time of last skin assessment: 0800 Pressure injuries or areas of concern: none Neurological: Neuro WNL: WNL - within normal limits (10/12/24 09) Speech: Clear (10/12/24899) Level of Consciousness: Alert (10/12/24899) RUE Motor Strength: 5-Active movement with full resistance (10/12/24899) RLE Motor Strength: 5-Active movement with full resistance (10/12/24899) LUE Motor Strength: 5-Active movement with full resistance (10/12/24899) LLE Motor Strength: 5-Active movement with full resistance (10/12/24899) Right Pupil Size (mm): 3 (10/09/24 0400) Right Pupil Reaction: Reactive (10/09/24 0400) Left Pupil Size (mm): 3 (10/09/24 0400) Left Pupil Reaction: Reactive (10/09/24 040) Coma Score: 15 (10/12/24 1138) Respiratory: Respiratory WNL: WNL- within normal limits (10/12/24899) Cough: Non-Productive;Occasional (10/12/24899) Dyspnea Occurence: None (10/12/24899) Respiratory Effort: Unlabored (10/12/24899) Oxygen therapy/ Mechanical vent Supplemental O2 Delivery: Room Air, None (10/12/24 113) O2 %: 95 % (10/09/24 1906) O2 flow rate: 0 L/MIN (10/11/242312) NIV/CPAP Mask/Prongs: Mask (10/11/242312) O2 Device Skin Integrity : Skin unaffected (10/11/242312) Interventions: Tubing adjusted (10/10/242129) Cardiac: Cardiovascular WNL: X - Exceptions to WNL as documented below (10/12/24899) Heart Sounds: S1;S2 (10/12/24899) Rhythm: Paced (10/12/24899) AR interval: 0.2 seconds (10/08/241999) QRS: 0.19 seconds (10/12/24899) Extremities: +Sensation (10/12/24899) Pulses Right: Dorsalis Pedis +;Radial + (10/12/24899) Pulses Left: Dorsalis Pedis +;Radial + (10/12/24899) Edema Location: Right Lower Extremity (RLE);Left Lower Extremity (LLE) (10/11/24 143) LUE Edema Assessment: Trace (10/11/24 143) RLE Edema Assessment: +1 - Description (10/12/24899) LLE Edema Assessment: +1 - Description (10/12/24899) Generalized Edema Assessment: Trace (10/10/242129) Capillary Refill: 1-2 seconds (10/12/24899) GI: GI WNL: WNL - within normal limits (10/12/24899) Abdomen: Soft;Non-distended;Non-tender (10/12/24899) : WNL: X - Exceptions to WNL as documented below (10/12/24899) Urine Description: Clear;Yellow (10/10/242134) Integumentary: Integumentary WNL: WNL - within normal limits (10/12/24899) Skin Description: Warm;Dry;Edematous (10/12/24899) Skin Color: Ecchymosis (10/12/24899) Ecchymosis Location: Scattered (10/12/24899) Skin Variations: Other - Describe (10/12/24899) Jamaal Score (auto-calculation): 20 (10/12/24899) Additional Assessment Information: R arm AV fistula; L arm midline; BPs taken in calf. MOUNA yesterday aborted due to hypotension. * Davida Canales, JOHN - 10/11/2024 1:04 PM EDT POST ASSESSMENT COMMUNICATION NOTE - HEMODIALYSIS Attention to: primary nurse Patient arriving via: Bed Reason for SBAR handoff: Postdialysis treatment. Treatment: Prescribed treatment time: 3.75 Duration of Treatment (minutes): 225 minutes (10/11/24 1144) Dialysis Treatment Less than Prescribed: NO Prescribed UF: 2-3 L as tolerated Dialysis: 3000 ml (10/11/24 1300) Reason prescribed UF was not achieved: n/a removedf 3 liters Blood Returned: Yes Potassium Bath: As ordered for entire treatment, 2K+ 2.5 Ca Post Dialysis Vitals: Temp: 36.2 °C (97.2 °F) (10/11/24 1144) Pulse: 63 (10/11/24 1246) Resp: 18 (10/11/24 1144) SpO2: 98 % (10/11/24 0758) O2 flow rate: 2 L/MIN (10/11/24 1144) Supplemental O2 Delivery: Nasal Cannula (10/11/24 114) Pain Assessment Flowsheet Row Most Recent Value Pain Assessment Scale [facility] Adult Scale 0-10 (18 years and older) Pain Score 0 (no pain) Pre BP Sitting: (!) 137/102 (10/11/24 0757) Post BP Sittin/60 (10/11/24 1144) Pre-Treatment Weight: 105.5 kg (232 lb 9.4 oz) (10/08/24 172) Post-Treatment Weight: 105.4 kg (232 lb 5.8 oz) (10/08/241726) Treatment Weight Change (kg): -0.1 kg (10/08/241726) Medications administered, see MAR/flowsheets for further information: EPO (Erythropoietin) and Other: dextrose Access: Arteriovenous fistula, Right armneedle size 15G Function: No problems Date/time to remove pressure dressin10/11/24@1999 Dialysis Tx Tolerance: Dizziness/Lightheaded (10/08/241726) Intervention : Fluid bolus;Head of bed lowered;UF- Stopped;Other (comment) (tx termination per MD) (10/08/241726) Patient educated on: Fistula/graft care and Signs and symptoms to report to staff Additional patient needs/interventions during treatment: N/A No bleeding from dialysis access. Patient returned to room in stable condition, in hospital bed. * Rainer Reyna RN - 10/11/2024 6:39 AM EDT I have read through and agree with all assessment/documentation done by Kat Hairston RN. * Kat Hairston RN - 10/11/2024 5:41 AM EDT IP TO DIALYSIS HANDOFF COMMUNICATION NOTE Attention to: Dialysis Patient arriving via: Bed Time of Call: 5:41 AM Phone Ext.: [phone]* Reason for SBAR handoff: Predialysis treatment. Neuro Assessment: Neurological: Neurological WNL Neuro WNL: WNL - within normal limits (10/10/242129) Level of Consciousness: Alert (10/09/24399) Orientation Level: Oriented x4 (10/09/24399) Cognition: Appropriate for age (10/09/24399) Speech: Clear (10/09/24399) Facial Drooping: Face symmetrical (10/09/24399) Extinction/Inattention: None (10/09/24399) Pupil Assessment: Yes (10/09/24399) Right Pupil Size (mm): 3 (10/09/24399) Right Pupil Shape/Description: Round (10/09/24399) Right Pupil Reaction: Reactive (10/09/24399) Left Pupil Size (mm): 3 (10/09/24399) Left Pupil Shape/Description: Round (10/09/24399) Left Pupil Reaction: Reactive (10/09/24399) Behaviors/Mood/Neuro Symptoms: Calm;Cooperative (10/09/24399) Hand Grasp/Motor Function/Sensation Assessment: Dorsiflexion;Grasp;Motor strength;Plantar flexion (10/09/24399) Right Hand Grasp: Strong (10/09/24399) Left Hand Grasp: Strong (10/09/24399) Right Foot Dorsiflexion: Strong (10/09/24399) Left Foot Dorsiflexion: Strong (10/09/24399) Right Foot Plantar Flexion: Strong (10/09/24399) Left Foot Plantar Flexion: Strong (10/09/24399) Motor Strength: RUE motor strength;LUE motor strength;RLE motor strength;LLE motor strength (10/09/24399) RUE Motor Strength: 5-Active movement with full resistance (10/09/24399) LUE Motor Strength: 5-Active movement with full resistance (10/09/24399) RLE Motor Strength: 5-Active movement with full resistance (10/09/24399) LLE Motor Strength: 5-Active movement with full resistance (10/09/24399) [place] Coma Scale - For patients greater than two years old Eyes Open: Spontaneous (10/10/242129) Best Verbal Response: Verbally appropriate for age (10/10/242129) Best Motor Response: Obeys commands appropriate for age (10/10/242129) Coma Score: 15 (10/10/242129) Additional Neurological Information: n/a Assessment: BP: 103/44 (provider made aware, no further orders at this time) (10/11/24348) Temp: 35.6 °C (96.1 °F) (10/11/24344) Pulse: 60 (10/11/24348) Resp: 18 (10/11/24344) SpO2: 96 % (10/11/24348) O2 flow rate: 1 L/MIN (10/10/242211) Supplemental O2 Delivery: Non-Invasive CPAP/BiPAP (10/11/24344) Pain Assessment Flowsheet Row Most Recent Value Pain Assessment Scale [facility] Adult Scale 0-10 (18 years and older) Pain Score 0 (no pain) Last dose of pain medication administered Tylenol 650 mg time 202010/10/2024 Jamaal Score: Jamaal Score (auto-calculation): 20 (10/10/242129) Diabetic: Yes Last Blood Sugar: Glucose (Bedside): 307 (10/10/242130) Dialysis Access: R AV fistula Continuous medications: n/a Labs needing collected: n/a @ n/a How does the patient take their medications: Whole with water Emotional/Personal Events and Special Needs: n/a * Rainer Reyna, JOHN - 10/10/2024 7:21 AM EDT I have read through and agree with all assessment/documentation done by Kat Hairston RN. * Jenny Lilly RN - 10/09/2024 12:26 PM EDT Patient was OOB in the chair resting comfortably on 2L NC, SAT's 100%. NC was removed and patient placed on RA at 1216. Approximately 9 min and 20 seconds, patient dropped below 88%. Patient placed back on 1L NC and less than 1 min, SAT's recovered too above 90%. * Estella Martinez RN - 10/08/2024 7:26 PM EDT Needs HD prior to discharge * Megan Pereira RN - 10/08/2024 5:45 PM EDT POST ASSESSMENT COMMUNICATION NOTE - HEMODIALYSIS Attention to: Aranza Lemos RN Patient arriving via: Bed Time of Call: [phone] Phone Ext.: [phone] Reason for SBAR handoff: Postdialysis treatment. Treatment: Prescribed treatment time: 225 minutes Duration of Treatment (minutes): 203 minutes (10/08/241726) Dialysis Treatment Less than Prescribed: YES, Reason Tx Less Than Prescribed: Other (comment) (dizziness) (10/08/241726) Dr. Chang notified. Prescribed UF: even-500ml Reason prescribed UF was not achieved: n/a Blood Returned: Yes Potassium Bath: As ordered for entire treatment, 2K+ 2.5 Ca Post Dialysis Vitals: Temp: 36.7 °C (98.1 °F) (10/08/241726) Pulse: 82 (10/08/24 182) Resp: 22 (10/08/241822) SpO2: 96 % (10/08/241822) O2 flow rate: 6 L/MIN (10/08/241822) Supplemental O2 Delivery: Nasal Cannula (10/08/241726) Pain Assessment Flowsheet Row Most Recent Value Pain Assessment Scale [facility] Adult Scale 0-10 (18 years and older) Pain Score 5 (moderate pain) Pre BP Sittin/49 (10/08/24 1350) Post BP Sittin/55 (10/08/24 1727) Pre-Treatment Weight: 105.5 kg (232 lb 9.4 oz) (10/08/241726) Post-Treatment Weight: 105.4 kg (232 lb 5.8 oz) (10/08/241726) Treatment Weight Change (kg): -0.1 kg (10/08/241726) Medications administered, see MAR/flowsheets for further information: EPO (Erythropoietin) Access: Arteriovenous fistula, Right armneedle size 15G Function: No problems Date/time to remove pressure dressin10/09/24@0600 Dialysis Tx Tolerance: Dizziness/Lightheaded (10/08/241726) Intervention : Fluid bolus;Head of bed lowered;UF- Stopped;Other (comment) (tx termination per MD) (10/08/241726) Patient educated on: Fistula/graft care Additional patient needs/interventions during treatment: N/A No bleeding from dialysis access. * Ronda Gonzalez RN - 10/07/2024 3:56 PM EDT Pacemaker upgrade to ICD by Dr. Carrizales. Left pectoral incision. Antibiotic pouch inserted in pocket prior to closing incision with sutures. Aquacel dressing placed on site. Remove Aquacel dressing on November 14, 2024 Patient tolerated procedure well. Report given to JOHN Chairez on HFAM7. See MAR for medication administration. Final device settings DDDR 60-130. Therapies turned on. * Megan Pereira RN - 10/07/2024 7:00 AM EDT Arrived to patients room to initiate HD. Upon arrival pt awake and alert with a BP of 93/39. Upon recheck BP 91/36. MD notified of hypotension and HD tx not initiated. Nephro team will evaluate and make plan after she is seen. * Viky Gonsalez RN - 10/07/2024 2:34 AM EDT VAT called to start IV site for amiodarone, pt with right limb alert due to fistula, therefore no PIV can be placed in the right arm. Left lower arm painful to touch due to IV infiltrate from previous shift, with the IV site being removed. I discuss with bedside nurse, Davida Jimenez, about not infusing the amiodarone in the midline catheter due to the medication being a vesicant, midline catheter are contraindicated for vesicant therapy, infusates with a ph <5 and Osmolality>900. Another form of venous access should be considered for this patient. Contacted Pharmacist, Williams Varghese for information on Amiodarone and the journal information gave a pH between 3.46 to 4.35, with a solution osmolality between 255 to 345 mOsm/L. Above information was communicated with Dr. Rosa Khan. * Uzma Hunter RN - 10/06/2024 4:53 PM EDT Upon prepping patient for cardiac catheterization; patient c/o severe left forearm pain at the peripheral IV site. The patient did state that " I've been telling them upstairs that my arm hurts really bad". The arm was assessed and it was noted to be infiltrated. The IV was removed and a warm compress applied. RN taking care of this patient on CICU given report of the above. * Honorio Ramírez RN - 10/05/2024 4:24 PM EDT Dual Licensed Skin Assessment completed by Honorio Ramírez RN and Abad Alcaraz RN. The patient is/has a N/A Skin Breakdown (includes non blanchable erythema): No documented in this encounter Miscellaneous Notes * Care Plan - Keisha Luz RN - 10/13/2024 9:55 PM EDT Clinical Goal(s): pt will remain stable for dc (10/13/24 0700) Possible barriers to meeting goal(s)/advancing plan of care: pt condition Stability of the patient: Moderately stable - low risk of patient condition declining or worsening Summary regarding today's goal(s): Met: pt remained stable Recommendations: continue q4 vital signs * Care Plan - Keisha Luz RN - 10/12/2024 11:29 PM EDT Clinical Goal(s): Pt will remain hemodynamically stable (10/12/24 0700) Possible barriers to meeting goal(s)/advancing plan of care: dialysis Stability of the patient: Moderately stable - low risk of patient condition declining or worsening Summary regarding today's goal(s): Met: pt remained hemodynamically stable Recommendations: continue q4 vitals * Care Plan - Emely Golden RN - 10/12/2024 4:28 AM EDT Clinical Goal(s): Pateint will be hemodynamically stable (10/11/24 194) Possible barriers to meeting goal(s)/advancing plan of care: diagnosis Problem: Ineffective Breathing Pattern Goal: Patient will achieve & maintain effective breathing pattern. 10/12/2024427 by Emely Golden RN Outcome: Progressing 10/12/2024427 by Emely Golden RN Outcome: Progressing Stability of the patient: Moderately stable - low risk of patient condition declining or worsening Summary regarding today's goal(s): Met: yes Recommendations: Continue plan of care. * Ancillary Progress Note - Amina Del Valle RDN - 10/11/2024 3:11 PM EDT CLINICAL NUTRITION ADULT RISK ASSESSMENT [address] [address] Name: Candi Finley Location: [facility] [place] H879/A Date: 10/11/2024 Time: 3:11 PM How patient was identified (select 2): Medical record number and Name Candi Finley is a 63 year old female being assessed for clinical nutrition risk related to follow-up Primary diagnosis: Ventricular tachycardia, non sustained. PMH significant for ESRD on HD, Jody-en-Y gastric bypass. Other pertinent information: Patient is seen at HD unit. Reported that eating better. 90-100% meal consumption documented. Denies nausea, emesis and abdominal discomfort. Last BM was on 10/10. Pt had HD today and removed 0.1 kg. NPO this morning. Possible MOUNA today. Recommend to advance diet, when feasible. Anthropometrics Measurements Admission weight (for dietitians): 104.9 kg Height: 162.6 cm (5' 4.02") (10/05/24 1555) Weight: 108.5 kg (239 lb 3.2 oz) (10/11/24 0344) BMI: 40.4 (10/05/24 1555) Usual Body Weight or EDW for Dialysis Patients: 101 kg (Estimated dry weight from HD unit) Diet: NPO Previously followed diet: Renal Food Allergies/Intolerances: None Pertinent medications/vitamins/minerals/supplements: Phoslo 2001 mg with meal and 1334 mg with snacks , epoetin janice - epbx 8000 units, novolog, lantus,levoxyl, miralax, miralax, Latest Reference Range & Units 10/11/24 06:20 Phosphorus 2.5 - 4.8 mg/dL 6.3 (H) (H): Data is abnormally high -receiving phos binders Latest Reference Range & Units 10/11/24 06:20 POTASSIUM 3.5 - 5.1 mmol/L 6.0 (H) (H): Data is abnormally high -hyperkalemia - on HD today Latest Reference Range & Units 10/11/24 06:20 BUN 6 - 20 mg/dL 55 (H) CREATININE 0.5 - 1.0 mg/dL 8.4 (H) EGFR >=60 mL/min 5 (L) (H): Data is abnormally high (L): Data is abnormally low - pre HD labs RISK FACTORS: Adult Energy Intake: No significant decrease Interpretation of Weight Change: Change likely secondary to fluid - 3.6 kg wt gain noted Skin: surgical wound left upper sternum NUTRITION RISK CATEGORY: Dialysis Risk: BMI less than 23 - no Pre-dialysis serum albumin less than 3.5 gm/dl for HD or less than 3.3 gm/dl for PD Latest Reference Range & Units 12/19/22 07:56 Albumin 3.8 - 5.0 g/dL 3.2 (L) (L): Data is abnormally low NUTRITION RISK CATEGORY: Low/Moderate (0-1 factors) Clinical Nutrition Recommendations: Diet: Advance diet when clinically feasible NUTRITION INTERVENTION/PLAN: Continue to monitor NPO/clear liquid status Will follow and adjust nutritional plan as medical condition requires. Please contact for change(s)in patient condition requiring earlier intervention. Amina Del Valle MS, RDN, LDN Clinical Dietitian [facility] [place] text * Pt Handout (on AVS) - Nevin Felipe RN - 10/11/2024 7:13 AM EDT [id number] Midodrine Brand Name(s): Orvaten®, Proamatine®; also available generically IMPORTANT WARNING: Midodrine may cause supine hypertension (high blood pressure that occurs when lying flat on your back). This medication should only be used by people whose low blood pressure severely limits their ability to perform daily activities and who could not be treated successfully with other therapies. Tell your doctor if you have or have ever had high blood pressure. Tell your doctor and pharmacist if you are taking dihydroergotamine (DHE, Migranal). Also tell your doctor and pharmacist what other prescription and nonprescription medications you are taking, including ephedrine, phenylephrine, phenylpropanolamine, and pseudoephedrine. Many nonprescription products contain these medications (e.g. diet pills and medications for cough and colds), so check labels carefully. If you experience any of the following symptoms, stop taking midodrine and call your doctor immediately: awareness of your heartbeat, pounding in your ears, headache, or blurred vision. After beginning treatment, your doctor may tell you to continue taking midodrine only if you have significant improvement in your symptoms.Talk to your doctor about how you are feeling while taking this medication. Keep all appointments with your doctor. You should have your blood pressure checked in the standingand lying flat positions before starting treatment and regularly while you are taking midodrine. Talk to your doctor about the risks of taking midodrine. WHY is this medicine prescribed? Midodrine is used to treat orthostatic hypotension (sudden fall in blood pressure that occurs when a person assumes a standing position). Midodrine is in a class of medications called alpha-adrenergic agonists. It works by causing blood vessels to tighten, which increases blood pressure. HOW should this medicine be used? Midodrine comes as a tablet to take by mouth. It is usually taken three times a day during the daytime hours (such as morning, midday, and late afternoon [before 6PM]) with doses spaced at least 3 hours apart. Take the last daily dose of midodrine before an evening meal and at least 4 hours before bedtime. Take midodrine at around the same times every day. Follow the directions on your prescription label carefully, and ask your doctor or pharmacist to explain any part you do not understand. Take midodrine exactly as directed. Do not take more or less of it or take it more often than prescribed by your doctor. Take midodrine during daytime hours when you need to be upright. Avoid taking a dose when you will be lying down for any length of time. Also talk to your doctor about how to position yourself when you are lying down. Your doctor may tell you to raise the head of your bed when resting or sleeping. Are there OTHER USES for this medicine? This medication may be prescribed for other uses; ask your doctor or pharmacist for more information. What SPECIAL PRECAUTIONS should I follow? Before taking midodrine, · tell your doctor and pharmacist if you are allergic to midodrine, any other medications, or any of the ingredients in midodrine tablets. Ask your pharmacist for a list of the ingredients. · tell your doctor and pharmacist what other prescription and nonprescription medications, vitamins, nutritional supplements, and herbal products you are taking or plan to take while taking midodrine. Your doctor may need to change the doses of your medications or monitor you carefully for side effects. · the following nonprescription products may interact with midodrine: cimetidine (Tagamet), randitine (Zantac); phenylephrine; pseudoephedrine. Be sure to let your doctor and pharmacist know that you are taking these medications before you start taking midodrine. Do not start any of these medications while taking midodrine without discussing with your healthcare provider. · tell your doctor if you have difficulty urinating, pheochromocytoma (tumor on a small gland nearthe kidneys), hyperthyroidism (condition that occurs when the thyroid gland produces too much thyroid hormone) or heart or kidney disease. Your doctor may tell you not to take midodrine. · tell your doctor if you have or have ever had diabetes, vision problems, or liver disease. · tell your doctor if you are , plan to become , or are . If you become while taking midodrine, call your doctor. · if you are having surgery, including dental surgery, tell the doctor or dentist that you are taking midodrine. What SPECIAL DIETARY instructions should I follow? Unless your doctor tells you otherwise, continue your normal diet. What should I do IF I FORGET to take a dose? Take the missed dose as soon as you remember it, as long as it is at least 4 hours before your bedtime. However, if it is almost time for the next dose, skip the missed dose and continue your regulardosing schedule. Do not take a double dose to make up for a missed one. What SIDE EFFECTS can this medicine cause? Some side effects can be serious. If you experience any of these symptoms or those listed in the IMPORTANT WARNING section, stop taking midodrine and call your doctor immediately or get emergency medical treatment: · slow heartbeat · dizziness · fainting Midodrine may cause other side effects. Call your doctor if you have any unusual problems while taking this medication. If you experience a serious side effect, you or your doctor may send a report to the Food and Drug Administration's (FDA) MedWatch Adverse Event Reporting program online (https://www.fda.gov/Safety/MedWatch) or by phone ( ). What should I know about STORAGE and DISPOSAL of this medication? Keep this medication in the container it came in, tightly closed, and out of reach of children. Store it at room temperature and away from light, excess heat and moisture (not in the bathroom). Unneeded medications should be disposed of in special ways to ensure that pets, children, and otherpeople cannot consume them. However, you should not flush this medication down the toilet. Instead,the best way to dispose of your medication is through a medicine take-back program. Talk to your pharmacist or contact your local garbage/recycling department to learn about take-back programs in your community. See the FDA's Safe Disposal of Medicines website (https://goo.gl/c4Rm4p) for more information if you do not have access to a take-back program. It is important to keep all medication out of sight and reach of children as many containers (such as weekly pill minders and those for eye drops, creams, patches, and inhalers) are not child-resistant and young children can open them easily. To protect young children from poisoning, always lock safety caps and immediately place the medication in a safe location - one that is up and away and out of their sight and reach. https://www.upandaway.org What should I do in case of OVERDOSE? In case of overdose, call the poison control helpline at . Information is also available online at https://www.poisonhelp.org/help. If the victim has collapsed, had a seizure, has trouble breathing, or can't be awakened, immediately call emergency services at 383. Symptoms of overdose may include the following: · awareness of your heartbeat · pounding in your ears · headache · blurred vision · goose bumps · cold sensation · difficulty urinating What OTHER INFORMATION should I know? Keep all appointments with your doctor and the laboratory. Your doctor will order certain lab teststo check your body's response to midodrine. Do not let anyone else take your medication. Ask your pharmacist any questions you have about refilling your prescription. It is important for you to keep a written list of all of the prescription and nonprescription (whiq-[id number]) medicines you are taking, as well as any products such as vitamins, minerals, or otherdietary supplements. You should bring this list with you each time you visit a doctor or if you areadmitted to a hospital. It is also important information to carry with you in case of emergencies. This report on medications is for your information only, and is not considered individual patient advice. Because of the changing nature of drug information, please consult your physician or pharmacist about specific clinical use. The [employer] represents that the information provided hereunder was formulated with a reasonable standard of care, and in conformity with professional standards in the field. The [employer] makes no representations or warranties, express or implied, including, but not limited to, any implied warranty of merchantability and/or fitness for a particular purpose, with respect to such information and specifically disclaims all such warranties. Users are advised that decisions regarding drug therapy are complex medical decisions requiring the independent, informed decision of an appropriate health medicare interviewer, and the information is provided for informational purposes only. The entire monograph for a drug should be reviewed for a thorough understanding of the drug's actions, uses and side effects. The [employer] does not endorse or recommend the use of any drug.The information is not a substitute for medical care. [facility]® Patient Medication Information?. © Copyright, 2023. The [employer]®, [address] [place] [address], [address], [place], [place]. All Rights Reserved. Duplication for commercial use must be authorized by [facility]. Selected Revisions: September 04, 2020. [facility]® Patient Medication Information?. © Copyright, 2024 * Care Plan - Kat Hairston RN - 10/11/2024 12:49 AM EDT Clinical Goal(s): patient will remain free from falls (10/10/24 0700) Possible barriers to meeting goal(s)/advancing plan of care: patient diagnosis Stability of the patient: Moderately stable - low risk of patient condition declining or worsening Summary regarding today's goal(s): Met: patient remained free of falls this shift Recommendations: continue current plan of care * Ancillary Progress Note - Cierra Bradford RRT - 10/10/2024 3:40 PM EDT PATIENT DRIVEN PROTOCOL - Respiratory Care Services [address] [address] Name: Candi Finley Location: [facility] [place] H879/A Date: 10/10/2024 Time: 3:41 PM Patient Driven Protocol Summary: Initial evaluation performed. This Treatment Plan and medications will be reviewed by the Primary Care Team for any contraindications. Respiratory Care Treatment Plan Secretion Management Treatment: Flutter TherapyPRN to enhance mobilization of secretions. The patient will be re-evaluated: No re-evaluation needed. Indications for treatment met. The Triage Level is: (Assessment Score = 0 - 5) Level 5. Triage Level Definitions: Level 1 Severe Respiratory/Airway Compromise Level 2 Moderate Respiratory/Airway Compromise or high risk for pulmonary complications Level 3 Mild Respiratory/Airway Compromise or moderate risk for pulmonary complications Level 4 Episodic Respiratory/Airway Compromise or low risk for pulmonary complications Level 5 No Respiratory/Airway Compromise Triage 1 Triage 2 Triage 3 Triage 4 Triage 5 greater than 20 16 - 20 11 - 15 6 - 10 0 - 5 Medical Record Assessment Clinical Findings Pulmonary Status: 0 - No History Surgical Status: 0 - No Surgical History Chest X-Ray: 1 - Chronic Changes or CHF Assessment Score: 1 Patient Assessment Clinical Findings Respiratory Pattern: 0 - RR 12 - 20; Patient only gets breathless with strenuous exercise. Breath Sounds: 2 - Diminished bilaterally Cough Effectiveness: 0 - Strong non-productive Sputum Production: 0 - No sputum production Level of Activity: 1 - Ambulatory with assist O2 needed to keep SpO2 greater than or equal to 92%: 0 - Room Air Assessment Score: 3 Total Assessment Score: 4 Breath Sounds: Inspiratory and expiratory clear and diminished bilaterally.. Cough and Sputum: An effective cough produced no sputum... CXR: EXAM XR CHEST 2 VIEWS-10/09/2024 11:19 pm HISTORY [...] finding. IMPRESSION IMPRESSION Similar findings of CHF. Vital Signs: Resp: 18 (10/10/24 1443) Pulse: 84 (10/10/24 1255) Temp: 35.7 °C (96.3 °F) (10/10/24 0243) BP: 108/45 (10/10/24 1457) SpO2: 98 % (10/10/24 1443) Primary Service: Cardiology Med B. Admitting Diagnosis: V-tach (HCC) [I47.20] Polymorphic ventricular tachycardia (HCC) [I47.29] Pulmonary Diagnosis: CHF and Pulmonary HTN. Prescriptions/Home Medications/Durable Medical Equipment: None. Recommended New home medications/durable medical equipment/outpatient pulmonary/sleep referral :None. * Care Plan - Kat Hairston RN - 10/10/2024 5:00 AM EDT Clinical Goal(s): pt will remain free from falls (10/08/242052) Possible barriers to meeting goal(s)/advancing plan of care: patient diagnosis Stability of the patient: Moderately stable - low risk of patient condition declining or worsening Summary regarding today's goal(s): Met: Recommendations: continue current plan of care * Pt Handout (on AVS) - Chiqui North RN - 10/09/2024 7:38 PM EDT Images from the original note were not included. [id number] Ventricular Arrhythmia The heart has its own electrical system to regulate the heartbeat. An abnormal change in the rate or pattern of the heartbeat is called an arrhythmia. It can cause the heart to move blood less efficiently. Four chambers hold blood as it moves through the heart. The 2 lower chambers of the heart arecalled ventricles. Problems with the electrical signals in the heart can make the ventricles beat faster than normal. Ventricular tachycardia (VT) Rapid electrical signals from the ventricles can result in a fast heart rhythm called ventricular tachycardia (VT). · With VT, abnormal electrical pathways or circuits form in the ventricles. This can be caused by any disease that damages the heart muscle. Or it can be caused by a problem you've inherited. It's most often seen as a result of a heart attack or coronary artery disease. · Electrical signals enter the abnormal circuit and loop around. With each loop, the signal tells the ventricles to contract. This makes the heart beat very fast. The heart may be beating too fast to pump blood. This can cause you to pass out. It can also cause cardiac arrest, leading to sudden . · A less serious form of VT happens when overly excited ventricular muscle cells take over the heart rhythm. The heart is otherwise normal. · In some cases, VT develops into ventricular fibrillation. This is the most serious type of arrhythmia. It's fatal if not treated right away. · Ventricular fibrillation (VF) At times, electrical signals may be sent so fast and unevenly that the heart muscle quivers and doesn?t beat at all. This is called fibrillation: · VF can occur if the ventricles have several abnormal circuits. Or it can happen if the heart muscle is suddenly injured, such as from a heart attack, and becomes electrically unstable. · Signals caught in the circuits make the ventricles beat very quickly and unevenly. This keeps the heart muscle from pumping correctly. · The heart can get to the point that it can?t pump at all. This is called cardiac arrest. will occur if emergency treatment isn't given to return the heart rhythm to normal. This treatment includes CPR and an energy shock to the heart (defibrillation). · Last Reviewed Date: 2023 00:00:00 © [employer]. All rights reserved. This information is not intended as a substitute for professional medical care. Always follow your healthcare professional's instructions. * Ancillary Progress Note - Gallo Garza RN - 10/08/2024 4:47 PM EDT CARE MANAGEMENT - ADULT DISCHARGE NOTE [facility]-[address] [address] Name: Candi Finley Location: [facility] H763/A Date: 10/08/2024 Time: 4:47 PM The following coordination of care and discharge plan has been coordinated with the care team, patient, family and/or caregiver according to the patients’ needs and preferences. Discharge Discharge Second Notice Important Message from Medicare delivered: Yes (10/06/24855) Date Delivered: 10/07/24 (10/06/24855) Discharge Transportation: Family/Friends drive (10/06/24855) Date of scheduled discharge transportation: 10/09/24 (10/06/24855) Final Discharge Plan (Complete only at time of Discharge): Home - Self Care (10/06/24855) Narrative: Candi is anticipated to discharge to home tomorrow with no CM needs. * Progress Notes - Non-Billable - Steffen Kidd MD - 10/07/2024 8:10 PM EDT POST- PROCEDURE CHECK Subjective: Patient doing well post-procedure. Denies any chest pain, shortness of breath, palpitations, headaches, nausea, vomiting, abdominal pain. Objective: BP 110/52 | Pulse 60 | Temp 36.1 °C (97 °F) (Tympanic) | Resp 12 | Ht 1.626 m (5' 4.02") | Wt 104.9 kg (231 lb 4.2 oz) | SpO2 100% | BMI 39.68 kg/m² | BSA 2.18 m² Midline Catheter Left;Upper Arm (Active) Number of days: 3 Hemodialysis Arteriovenous Fistula Right Forearm (Active) Number of days: 665 General: elderly female, chronically ill HEENT: normocephalic, atraumatic. Heart: regular rate and rhythm, normal S1, S2, loud systolic murmur Pulmonary: good bilateral air entry, no wheezes or crackles Abdomen: Soft, non-tender, non-distended. Normal bowel sounds and no rebound or guarding. Extremities: No pitting edema present at lower extremity bilaterally. Neuro: AAOx3. Psych: Appropriate mood and affect. Procedure site: left chest pocket without surrounding edema, erythema or tenderness Assessment/Plan: Candi Finley is a 63 year old female who underwent defibrillator implantation- biventricular ICD. Currently hemodynamically stable and no active bleeding. Follow CXR 2 views Rest of management per day team note. Steffen Morales MD Resident Physician This chart was completed in part utilizing [email or web address] Speech Voice Recognition Software. Grammatical errors, random word insertions, pronoun errors, and incomplete sentences are an occasional consequence of this system due to software limitations, ambient noise, and hardware issues. Any formal questions or concerns about the content, text, or information contained within the body of this dictation should be directly addressed to the provider for clarification. * Ancillary Progress Note - Gina Dumont RDN - 10/07/2024 1:18 PM EDT CLINICAL NUTRITION ADULT RISK ASSESSMENT [address] [address] Name: Candi Finley Location: [facility] H763/A Date: 10/07/2024 Time: 1:18 PM How patient was identified (select 2): Medical record number and Name Candi Finley is a 63 year old female being assessed for clinical nutrition risk related to dialysis Primary diagnosis: Ventricular tachycardia, non sustained. PMH significant for ESRD on HD, Jody-en-Y gastric bypass. Other pertinent information: No noted issues with appetite. No nausea, vomiting, constipation and diarrhea. Last bowel movement was today. No known food allergies. Makes little urine. Anthropometrics Measurements Admission weight (for dietitians): 104.9 kg Height: 162.6 cm (5' 4.02") (10/05/24 1555) Weight: 104.9 kg (231 lb 4.2 oz) (10/07/24 0600) BMI: 40.4 (10/05/24 1555) Usual Body Weight or EDW for Dialysis Patients: 101 kg (Estimated dry weight from HD unit) Diet: NPO Previously followed diet: Renal Food Allergies/Intolerances: None Oral Nutrition Supplement (ONS): None Pertinent medications/vitamins/minerals/supplements: Phoslo (2001 mg) with meals, Lantus, Levoxyl, Miralax RISK FACTORS: Adult Energy Intake: No significant decrease Interpretation of Weight Change: Change likely secondary to fluid Skin: Compromise without nutrition-related implications NUTRITION RISK CATEGORY: Dialysis Risk: BMI less than 23 - Body mass index is 39.68 kg/m². Pre-dialysis serum albumin less than 3.5 gm/dl for HD or less than 3.3 gm/dl for PD - no albumin obtained on admission NUTRITION RISK CATEGORY: Low/Moderate (0-1 factors) Clinical Nutrition Recommendations: Diet: Advance diet when clinically feasible NUTRITION INTERVENTION/PLAN: Continue to monitor NPO/clear liquid status Will follow and adjust nutritional plan as medical condition requires. Please contact for change(s)in patient condition requiring earlier intervention. Gina Dumont RDN, JAGRUTIN Registered Dietitian Assistant Account Manager Senior Clinical Nutrition Services [facility] | Phone: [phone] * Ancillary Progress Note - Maddie Degroot RN - 10/07/2024 12:31 PM EDT CARE MANAGEMENT - ADULT TRANSITION NOTE [facility]-[address] [address] Name: Candi Finley Location: [facility] H763/A Date: 10/07/2024 Time: 12:31 PM Risk Stratification Risk Stratification Psycho Social / Medical Concerns Identified: Adjustment to illness/injury (10/06/24 0856) Accessed [employer] to connect patients to social care resources: No (10/06/2456) OBRA or OPTIONS needed for placement: No (10/06/24 0856) Readmission Risk Score: 13.06 (10/07/24 1201) AM-PAC Score With Stairs : 17 (10/07/24 0800) Caregiver Information Emergency Contacts Name Relation Home Work Mobile Zhen Finley Spouse [phone] Other Contacts Name Relation Home Work Mobile Vonda Haynes Sibling [phone] MaliaZhen is the patient's surrogate decision maker Transition of Care Checklist Narrative: Patient discussed in IDT rounds and chart reviewed. Patient is not medically stable for discharge today. Plan for IDC implantation with EP today. Likely discharge tomorrow after HD. Further disposition planning pending medical stability. CM will continue to follow and support any needs. Anticipated Transportation at Discharge: Family Patient/Family Expectations: Return home when medically stable with ANGELINE BACKPACKERS MANAGER HD Transition Planning Transition Planning Transition Plan/Considerations: Needs uncertain at this time - Continue monitoring for needs;Discussed at Interdisciplinary Team / Boost Rounds;CM provided contact information and will update plan asneeds arise (10/06/24854) Transition plan discussed with - Enter name and phone #: Hernan (10/06/24854) Additional Considerations: Care Management will continue to monitor and assist with discharge planning needs * Progress Notes - Non-Billable - Roni Elder MD - 10/07/2024 4:59 AM EDT Paged by nursing 0100 regarding not being able to use midline for lab draws due to IV amiodarone being run through midline (nursing reported that left arm IV infiltrated earlier in afternoon). Patient's left arm was examined and was mildly tender to palpation and mildly edematous. I asked nursing to place a peripheral line so amiodarone could be run through peripheral IV line, and nursing reached out to IV therapy team. IV therapy team noted that amiodarone should not be run through peripheral or midline at that time due to being a vesicant and central line should be placed.Peripheral access not able to be obtained since R arm has HD fistula, and L arm has midline and previously had infiltrated IV. Discussed with fellow television production technician, and discussed risks and benefits of placing central line, and decided against placing central line. It was decided to discontinue amiodarone drip (she had received 800 mg of load) and start patient on oral load of amiodarone 200 mg TID. Will defer decision to use of hy aluronidase to day team if left arm has worsening edema or tenderness. * Communication - Davida Jimenez RN - 10/07/2024 3:37 AM EDT Upon initial assessment, patient complaining of pain in the left arm and stated "my arm hurts, my IV went bad earlier" and found to have amiodarone running through a midline catheter in the left upper arm. This RN was never told in report about a 22 g PIV infiltrating in the left lower arm prior tostart of shift. Dr. Roni Elder stated she also was not aware of the amio infiltrating this afternoon. Upon alerting Dr. Roni Elder that the patient's labs would no longer be able to be drawn through the midline as the amio was running and that was the only IV access site, they asked for another PIV to be placed. Viky Gonsalez RN with IV therapy was messaged regarding placing another PIV as the patient has a fistula in the right arm and cannot be used. Viky Gonsalez RN stated amiodarone should never be run through a midline (amiodarone is a vesicant with a pH < 5 and is therefore contraindicated to be run through a midline per [facility] midline catheter policy), She also recommended that a central line should be placed as "the midline arm shouldn't be used for other access" and that the patient should receive the amiodarone antidote for the previous infiltration in the left arm. Dr. Roni Elder was made aware that the amiodarone should not be run through the midline, a CVC was recommended for continued amiodarone use, and the antidote recommendation. Dr. Elder stated they would discuss with the fellow, Dr. Liliane Miranda about how they would like to proceed. The amiodarone gtt was stopped per Dr. Elder in the meantime. No other new orders at this time. * Progress Notes - Non-Billable - Roni Elder MD - 10/06/2024 7:32 PM EDT Post Catheterization Check SUBJECTIVE: Patient seen and examined post cath. Patient denies pain at right femoral site. Patientdenies tingling or numbness. Objective: BP 116/50 | Pulse 63 | Temp 36.5 °C (97.7 °F) (Tympanic) | Resp 13 | Ht 1.626 m (5' 4.02") | Wt 105.8 kg (233 lb 4 oz) | SpO2 100% | BMI 40.02 kg/m² | BSA 2.19 m² General: No acute distress, Alert and oriented X 3 Chest: lungs clear to auscultation b/l CV: RRR, systolic murmur present, no rubs and gallops Cath site: clean, dressing in place, no bleeding, distal pulses appreciated, sensation intact Catheterization findings: Moderate non-obstructive CAD Prox LAD 50% --> FFR 0.83 (not hemodynamically significant) No significant CAD elsewhere LVEDP 17 mmHg A/P: Seen post-cath. No complications, continue medical management per primary team. Roni Elder MD PGY1 * Ancillary Progress Note - Yoanna Wren RT - 10/06/2024 5:44 PM EDT [address] [address] Ancillary Progress Note Patient Name: Candi Finley Date: 10/06/2024 Patient will be escorted to [facility], report given to JOHN Dunn. We performed a Diagnostic Cardiac Catheterization procedure on this patient.. The right femoral artery was used for access with a 5 Irish sheath. A Mynx was used to close the site. There is no hematoma and no ooze from the cath site noted. Sterile Gauze and Tegaderm dressing applied to site Distal pulses were palpated and instructions to patient were given. There were no complications during the case. Please see the MAR for the medications that were given. See Cath Procedure Log for patient vitals during the case. * Communication - Godfrey Lopez MD - 10/06/2024 4:27 PM EDT Images from the original note were not included. Brief cardiology update note I interrogated Ms. Finley's PPM and change the mode from AAIR <--> DDR (MVP On) to DDDR (MVP Off). No other changes made. Final interrogation after the mode change as below: * Ancillary Progress Note - Gallo Garza RN - 10/06/2024 8:58 AM EDT CARE MANAGEMENT - ADULT INITIAL SCREENING [facility] [address] Name: Candi Finley Location: [facility] H7/ Date: 10/06/2024 Time: 8:58 AM Discussed patient with the interdisciplinary care team. This Film Flat Inspector performed a chart review and met with Candi and Zhen at bedside to complete admission screen and assessed needs for transition planning. The intensive care specialist role and services were explained and emotional support was provided. Chief Complaint: No chief complaint on file. Prior Living Arrangements What was your living situation prior to admission/observation?: Independently;With Spouse (856) Living Quarters: House (10/06/24855) Number of steps to enter living quarters:: 7 (1/2 steps) (10/06/24855) Do you have serious difficulty walking or climbing stairs? (5 years old or older): Yes (10/05/241554) History of falling: No (10/06/24799) Prior Level of Functioning Describe the patient's ability prior to admission/observation to perform ADLs: Performs independently (needs assistance with soft mud molder) (10/06/24855) Describe the patient's mobility status prior to admission: Patient ambulates independently (10/06/24855) Patient uses assistive device: Yes (10/06/24855) If yes, choose:: Walker;Cane (10/05/241554) Caregiver Information Emergency Contacts Name Relation Home Work Mobile Zhen Finley Spouse [phone] Other Contacts Name Relation Home Work Mobile Vonda Haynes Sibling [phone] Zhen Finley is the patient's surrogate decision maker Hernan live in a single story home with seven "half-steps" to enter. She is independent with her ADLs but needs assistance with soft mud molder. She uses a cane/walker occasionally for ambulation. She has a wheelchair and shower chair at home if needed. She does not use oxygen, cpap or bipap.She receives dialysis treatments at [facility] at [phone]. She has no history with or rehab. She had a rehab stay at [facility] in January 2024 for fractured leg. Risk Stratification/Psychosocial/Care Gaps Risk Stratification Psycho Social / Medical Concerns Identified: Adjustment to illness/injury (10/06/24855) [facility] to connect patients to social care resources: No (10/06/24855) OBRA or OPTIONS needed for placement: No (10/06/24855) Readmission Risk Score: 13.66 (10/06/24 1600) AM-PAC Score With Stairs : 22 (10/06/24 0800) Prior to Admission Services Services Prior to Admission BACKPACKERS MANAGER Services (Services received within the last 30 days with exception, Psych within last two years): Durable Medical Equipment;Dialysis (10/06/24855) BACKPACKERS MANAGER Durable Medical Equipment (DME) in home: Cane;Bedside commode;Walker Rolling;Wheelchair standard (10/06/24855) [place] Dept. of Aging (PDA) Waiver Program: N/A (10/06/24855) BACKPACKERS MANAGER Transportation (Services received within the last 30 days): Family/Friends Personal Vehicle;Patient drives self (10/06/24855) Outpatient Film Flat Inspector: Patient Care Team: Heidi Garcia RN as Airline Attendant ([facility] at Home) Patient/Family Expectations: return to home For further screening information, please refer to the Care Management flow document. * Communication - Beto Aldana MD - 10/06/2024 6:27 AM EDT INPATIENT CARDIAC CATHETERIZATION CHECKLIST Case Request Details Requested Procedure Coronary angiogram, left heart catheterization Indication Polymorphic ventricular tachycardia Attending Physician Dr. Alvarez Patient Condition Patient Able to Consent? If no, ensure patient is accompanied by a family member Yes Full Code? Yes Hemodynamically Stable? Yes Oxygen Requirement No Able to tolerate lying flat? Yes NPO for at least 6 hours? If no, when was last PO intake Yes If Female <55 years old, negative test, total hysterectomy, or last menses >1 year?N/A Allergies Allergy to dye? No Allergy to aspirin? No Allergy to heparin? No Labs Last Creatinine 6.6 (on hemodialysis) Last Hemoglobin 8.6 (baseline anemia of renal disease) Last Platelet Count 261 Last INR 1.1 Medications Any Oral Anticoagulant in the Last 48 Hours? If yes, what was administered and when? No Last Administered dose of Aspirin Today Other Information Access Site Limitations? (ie: prior failed attempts, known access-related PAD, tortuosity, scar, rash/infection, stent/graft/endartectomy, AV fistula, severe raynaud's, IVC Filter) Yes Right AVF near radial artery Will need to use left radial or femoral arteries CABG Anatomy and Patency, if Applicable N/A Last LV EF 55-60% (2020) Case Specific Considerations? (ie: LV thrombus, aortic mural thrombus, aortic dissection, aortic valve vegetation/thrombus, altered mentation, agitation) Rhinovirus (+) at [facility] on 10/04 documented in this encounter Plan of Treatment Upcoming Encounters Date Type Department Care Team (Late st Contact Info) Description 10/19/2024 11:00 AM EDT Cardiac Studies Cardiology, [facility] [address] [place] [address] Susi [facility] [address] [place] [address] 11/02/2024 9:30 AM EDT Home Visit [facility], [facility] [address] [place] [address] Heidi Garcia, RN [address] [place] [address] 11/25/2024 10:00 AM EDT Imaging Radiology [facility] [address] [place] [phone] 11/30/2024 10:00 AM EDT Nurse Only Nutrition & Weight Management, [facility] [address] [place] [phone] [employer], Nurse Gi Nutrition [facility] [address] [place] [address] 12/09/2024 12:15 PM EDT Hospital Encounter OR GL, Operating Room, [facility] - 4th Floor [address] [place] [phone] Himanshu Rivero, [address] [place] [address] 12/09/2024 12:15 PM EDT - 12/09/2024 12:56 PM EDT Surgery OR [facility], Operating Room, [facility] - 4th Floor [address] [place] [address] Himanshu Rivero, DO [address] [place] [address] COLONOSCOPY FLEXIBLE PROXIMAL DIAGNOSTIC 12/21/2024 10:30 AM EDT Office Visit Gastroenterology, [facility] [address] [place] [phone] Bret, Lorella G, ASSEMBLER DC [employer] [address] [place] [address] 03/10/2025 1:20 PM EDT Office Visit Dermatology [place] [address] [place] [phone] Joanne Parks PA-C [address] [place] [address] [place] [address] Scheduled Procedures Name Priority Associated Diagnoses Date/Ti me COLONOSCOPY FLEXIBLE PROXIMAL DIAGNOSTIC History of colonic polyps Diarrhea 12/09/2024 12:15 PM EDT Scheduled Referrals Name Type Priority Associated Diagnoses Orde r Schedule VALVE CLINIC REFERRAL OP Referral Within 30 days (routine) Severe mitral regurgitation Nonrheumatic mitral valve stenosis with insufficiency Ordered: 10/14/2024 CARDIOLOGY REFERRAL OP Referral Within 10 days (routine) Severe mitral regurgitation Nonrheumatic mitral valve stenosis with insufficiency Ventricular tachycardia, non-sustained (HCC) Ordered: 10/14/2024 Health Maintenance Due Date Last Done Comments Cologuard 12/23/2003 Fecal Occult Blood Test 12/23/2003 Sigmoidoscopy 12/23/2003 TSH 01/23/2023 01/23/2022, 07/21, 05/18/2021, Additional history exists Depression Monitoring 08/14/2024 08/14/2023 HbA1c 11/05/2024 05/07/2024, 11/19, 07/01/2022, Additional history exists COVID-19 Vaccine (6 - Moderna risk ) 11/30/2024 06/02/2024, 01/08/2022, 04/09/2021, Additional history exists [...] this encounter Medical Devices Implanted Type Area Rumper Device Identifier Shelf Expiration Date Model / Serial / Lot Coil Vortex 35 Pltinm [id number] - [id number] Implanted:Qty: 1 on 11/27/2021 by Sterling Cates MD at OR [facility] Right: Upper Arm [employer] : NEURO INTR [id number] 08/15/2024 [id number] / / [id number] Coil Vortex 35 Pltinm [id number] - [id number] Implanted:Qty: 1 on 11/27/2021 by Sterling Cates MD at OR [facility] Right: Upper Arm [employer] : NEURO INTR [id number] 08/15/2024 [id number] / / [id number] Coil Vortex 35 Pltinm [id number] - [id number] Implanted:Qty: 1 on 11/27/2021 by Sterling Cates MD at OR [facility] Right: Upper Arm [employer] : NEURO INTR [id number] 08/15/2024 [id number] / / [id number] Coil Vortex 35 Pltinm [id number] - [id number] Implanted:Qty: 1 on 11/27/2021 by Sterling Cates MD at OR [facility] Right: Upper Arm [employer] : NEURO INTR [id number] 05/16/2024 [id number] / / [id number] Azur 35 Detachable 5mm 11cm - [id number] Implanted:Qty: 1 on 03/19/2022 by Jose Devine MD at [facility] [facility] [place] Right: Wrist [employer] [id number] 10/18/2025 [id number] / / [id number] Azur 35 Detachable 5mm 11cm - [id number] Implanted:Qty: 1 on 03/19/2022 by Jose Devine MD at OR [facility] [place] Right: Wrist [employer] [id number] 06/19/2026 [id number] / / [id number] Mesh Flat Sheet 10x14 [id number] - [id number] Implanted:Qty: 1 on 12/11/2022 by Eros Dash MD at OR [facility] [place] N/A: Abdomen CR BARD : DAVOL [id number] 06/17/2027 [id number] / / [id number] Defib [place] Mri Cement Paver-D - [id number] Implanted:Qty: 1 on 10/07/2024 by Arianne Carrizales IV, MD at CARDIAC LABS [facility] [place] [employer] : FANTASMA 07/03/2025 [id number] / [id number] / [id number] Envelope Antibacteral Tyrx - [id number] Implanted:Qty: 1 on 10/07/2024 by Arianne Carrizales IV, MD at CARDIAC LABS [facility] [place] [employer] : CRM [id number] 06/02/2025 [id number] / / [id number] Lead Defib Sprint 6935m-62 - [id number] Implanted:Qty: 1 on 10/07/2024 by Arianne Carrizales IV, MD at CARDIAC LABS [facility] [place] [employer] : CRM [id number] 08/03/2026 [id number] / [id number] / [id number] documented as of this encounter Procedures Procedure Name Priority Date/Time Associated Diagnosis Comments GLUCOSE METER, POINT OF CARE BHARGAVI 10/14/2024 11:27 AM EDT CTA TAVR GATED STUDY Routine 10/14/2024 8:23 AM EDT GLUCOSE METER, POINT OF CARE BHARGAVI 10/14/2024 7:57 AM EDT BASIC METABOLIC PANEL Routine 10/14/2024 4:16 AM EDT PHOSPHORUS Routine 10/14/2024 4:16 AM EDT CBC Routine 10/14/2024 4:16 AM EDT GLUCOSE METER, POINT OF CARE BHARGAVI 10/13/2024 9:26 PM EDT GLUCOSE METER, POINT OF CARE BHARGAVI 10/13/2024 4:18 PM EDT GLUCOSE METER, POINT OF CARE BHARGAVI 10/13/2024 1:24 PM EDT GLUCOSE METER, POINT OF CARE BHARGAVI 10/13/2024 7:29 AM EDT BASIC METABOLIC PANEL Routine 10/13/2024 4:29 AM EDT PHOSPHORUS Routine 10/13/2024 4:29 AM EDT CBC Routine 10/13/2024 4:29 AM EDT GLUCOSE METER, POINT OF CARE BHARGAVI 10/12/2024 10:23 PM EDT GLUCOSE METER, POINT OF CARE BHARGAVI 10/12/2024 4:48 PM EDT TRANSESOPHAGEAL ECHO (COMPLETE) Routine 10/12/2024 3:00 PM EDT Mitral regurgitation CV ECHO, MOUNA INTRAOPERATIVE 10/12/2024 1:30 PM EDT Mitral regurgitation GLUCOSE METER, POINT OF CARE BHARGAVI 10/12/2024 11:36 AM EDT NOCTURNAL OXIMETRY (INPATIENT) Routine 10/12/2024 7:55 AM EDT GLUCOSE METER, POINT OF CARE BHARGAVI 10/12/2024 7:42 AM EDT HEPATIC FUNCTION PANEL Add-on 4:45 AM EDT BASIC METABOLIC PANEL Routine 10/12/2024 4:45 AM EDT PHOSPHORUS Routine 10/12/2024 4:45 AM EDT CBC Routine 10/12/2024 4:45 AM EDT GLUCOSE METER, POINT OF CARE BHARGAVI 10/12/2024 12:04 AM EDT GLUCOSE METER, POINT OF CARE BHARGAVI 10/11/2024 10:38 PM EDT GLUCOSE METER, POINT OF CARE BHARGAVI 10/11/2024 9:06 PM EDT TRANSESOPHAGEAL ECHO (COMPLETE) Routine 10/11/2024 5:39 PM EDT Valvular heart disease BASIC METABOLIC PANEL Routine 10/11/2024 6:20 AM EDT PHOSPHORUS Routine 10/11/2024 6:20 AM EDT CBC Routine 10/11/2024 6:20 AM EDT GLUCOSE METER, POINT OF CARE BHARGAVI 10/10/2024 9:04 PM EDT BNP (NT-PROBNP) Routine 10/10/2024 5:56 PM EDT GLUCOSE METER, POINT OF CARE BHARGAVI 10/10/2024 4:46 PM EDT GLUCOSE METER, POINT OF CARE BHARGAVI 10/10/2024 11:33 AM EDT GLUCOSE METER, POINT OF CARE BHARGAVI 10/10/2024 7:34 AM EDT XR CHEST 2 VIEWS Routine 10/09/2024 11:1 9 PM EDT Heart failure, unspecified (HCC) GLUCOSE METER, POINT OF CARE BHARGAVI 10/09/2024 8:57 PM EDT GLUCOSE METER, POINT OF CARE BHARGAVI 10/09/2024 4:48 PM EDT GLUCOSE METER, POINT OF CARE BHARGAVI 10/09/2024 12:34 PM EDT GLUCOSE METER, POINT OF CARE BHARGAVI 10/09/2024 8:13 AM EDT BASIC METABOLIC PANEL Routine 10/09/2024 5:07 AM EDT PHOSPHORUS Routine 10/09/2024 5:07 AM EDT CBC Routine 10/09/2024 5:07 AM EDT MAGNESIUM Routine 10/09/2024 5:07 AM EDT GLUCOSE METER, POINT OF CARE BHARGAVI 10/08/2024 9:58 PM EDT BASIC METABOLIC PANEL Routine 10/08/2024 8:34 PM EDT MAGNESIUM Routine 10/08/2024 8:34 PM EDT XR CHEST 1 VIEW STAT 10/08/2024 7:08 PM EDT Emphysema, unspecified (HCC) Other nonspecific abnormal finding of lung field Hypoxemia GLUCOSE METER, POINT OF CARE BHARGAVI 10/08/2024 8:23 AM EDT BASIC METABOLIC PANEL Routine 10/08/2024 3:27 AM EDT PHOSPHORUS Routine 10/08/2024 3:27 AM EDT CBC Routine 10/08/2024 3:27 AM EDT MAGNESIUM Routine 10/08/2024 3:27 AM EDT GLUCOSE METER, POINT OF CARE BHARGAVI 10/07/2024 9:39 PM EDT XR CHEST 2 VIEWS Routine 10/07/2024 9:10 PM EDT Pleural effusion, not elsewhere classified Presence of automatic (implantable) cardiac defibrillator GLUCOSE METER, POINT OF CARE BHARGAVI 10/07/2024 5:28 PM EDT HC ECG TRACING ONLY Routine 10/07/2024 5 :14 PM EDT Status post cardiac pacemaker procedure BASIC METABOLIC PANEL Routine 10/07/2024 4:44 PM EDT MAGNESIUM Routine 10/07/2024 4:44 PM EDT GLUCOSE METER, POINT OF CARE BHARGAVI 10/07/2024 11:34 AM EDT GLUCOSE METER, POINT OF CARE BHARGAVI 10/07/2024 6:17 AM EDT TYPE AND SCREEN Routine 10/07/2024 4:27 AM EDT BASIC METABOLIC PANEL Routine 10/07/2024 4:15 AM EDT PHOSPHORUS Routine 10/07/2024 4:15 AM EDT CBC Routine 10/07/2024 4:15 AM EDT MAGNESIUM Routine 10/07/2024 4:15 AM EDT GLUCOSE METER, POINT OF CARE BHARGAVI 10/06/2024 11:04 PM EDT GLUCOSE METER, POINT OF CARE BHARGAVI 10/06/2024 6:28 PM EDT ACT, POINT OF CARE BHARGAVI 10/06/2024 5: 31 PM EDT BASIC METABOLIC PANEL Routine 10/06/2024 4:03 PM EDT MAGNESIUM Routine 10/06/2024 4:03 PM EDT ECHO, COMPLETE (2D), TRANS-THORACIC Routine 10/06/2024 11:48 AM EDT Cardiac arrhythmia, unspecified GLUCOSE METER, POINT OF CARE BHARGAVI 10/06/2024 11:37 AM EDT GLUCOSE METER, POINT OF CARE BHARGAVI 10/06/2024 6:36 AM EDT POTASSIUM, WHOLE BLOOD Routine 5:42 AM EDT BASIC METABOLIC PANEL Routine 10/06/2024 4:10 AM EDT PT INR Routine 10/06/2024 4:10 AM EDT PHOSPHORUS Routine 10/06/2024 4:10 AM EDT CBC Routine 10/06/2024 4:10 AM EDT MAGNESIUM Routine 10/06/2024 4:10 AM EDT CARDIAC CATHETERIZATION REPORT Routine 10/06/2024 GLUCOSE METER, POINT OF CARE BHARGAVI 10/05/2024 10:00 PM EDT HC ECG TRACING ONLY Routine 10/05/2024 5 :20 PM EDT Tachycardia BASIC METABOLIC PANEL Routine 10/05/2024 5:15 PM EDT MAGNESIUM Routine 10/05/2024 5:15 PM EDT GLUCOSE METER, POINT OF CARE BHARGAVI 10/05/2024 5:13 PM EDT documented in this encounter Results * (ABNORMAL) GLUCOSE METER, POINT OF CARE (10/14/2024 11:27 AM EDT) Pathologist [facility] Glucose - POCT 238(H) 70 - 120 mg/dL 10/14/2024 11:49 AM EDT [facility] Blood Whole blood specimen / Unknown 10/14/2024 11:27 AM EDT 10/14/2024 11:49 AM EDT us Kaden Arana MD LAB POINT OF CARE TE ST DOCKED DEVICE UNSOLICITED RESULTS Final Result [facility] [address] [place] [address] * CTA TAVR GATED STUDY (10/14/2024 8:23 AM EDT) Anatomical Region Laterality Modality Chest, Abdomen, Pelvis, Body Com puted Tomography 10/14/2024 6:45 PM EDT Narrative 10/14/2024 6:43 PM EDT EXAM: 1. CTA CHEST WITH CONTRAST 2. CTA ABDOMEN PELVIS WITH CONTRAST 3. CTA TMVR HISTORY: Mitral valve protocol for pre-TMVR planning COMPARISON: CT abdomen pelvis from 09/05/2022 TECHNIQUE: 1. CTA chest with intravenous contrast was performed. MIP images were obtained and reviewed. 2. CTA abdomen pelvis with intravenous contrast was performed. MIP images were obtained and reviewed. 3. CTA TMVR CONTRAST: 80 ml intravenously. FINDINGS: CTA CHEST: PULMONARY ARTERIES: Top-normal in size. No large central or segmental pulmonary embolism. AORTA: Aortic valve appears trileaflet. Mild aortic valvular calcifications. Carotid/axillo-subclavian arteries: Patent arch vessels. No significant stenosis of the subclavian or carotid arteries. Minimal subclavian: 4.18 mm (left), 5.96 mm (right) HEART: Mild dilatation of the left atrium. Severe mitral annular calcifications. AICD/pacer leads terminating along the RV apex. No pericardial effusion.. Annulus measurement: 3T-YX-Tqufsefs: 28.1 mm 3W-NT-Wbhqjrsb: 22.0 mm 5W-JZ-Nzjpfhwz: 34.3 mm 2D-Area(d): 6.16 cm2 2D-P(d): 94.3 mm 8G-W-Oricbxhkf: 66.2 mm 2E-OU-Ftdzwdrz(d): 28.1 mm 4I-XI-Xufltexg(d): 22.0 mm 7U-HM-Rhclkplt(d): 34.3 mm 3D-P(d): 96.6 mm 3N-G-Jmijwonzn(d): 68.5 mm Embedded Geometry 29 mm, offset: 50.9 % Jose Guadalupe LVOT Avg. Diameter: 20.5 mm Min. Diameter: 10.5 mm Max. Diameter: 29.7 mm Area: 3.29 cmï¿½ Aortomitral angle: 123 deg. Jose Guadalupe-Aortomitral angle: 141 deg. MEDIASTINUM/OSMAR: Mildly prominent mediastinal lymph nodes, likely reactive. CHEST WALL/AXILLA: Battery pack over the left chest wall with air and soft tissue of fluid collection likely related to recent device placement. LUNGS/PLEURA: Mild interstitial lobular thickening in the upper lobes. Small bilateral pleural effusions with reactive atelectasis at the lung bases, likely cardiac in etiology. Central airways are clear. No pleural effusion or pneumothorax. CTA ABDOMEN PELVIS: LIVER: Capsular calcification in segment 4. GALLBLADDER/BILE DUCTS: Cholecystectomy. No biliary ductal dilatation. PANCREAS: Unremarkable. GI TRACT: Jody-en-Y gastric bypass. Scattered colonic diverticula. No evidence of bowel obstruction. SPLEEN: Unremarkable. LYMPH NODES: No lymphadenopathy. ADRENAL GLANDS: Unremarkable. KIDNEYS/URETERS: No hydronephrosis. Symmetric enhancement without mass. No ureteral calculus. URINARY BLADDER: Concentric bladder wall thickening. REPRODUCTIVE ORGANS: Hysterectomy. VASCULATURE: Scattered atherosclerotic calcifications without aortic aneurysm. Severe vascular calcifications of the visceral vasculature, infrarenal abdominal aorta and bilateral common and external iliac arteries. No significant stenosis. Average min diameter abdominal aorta: 11.9 mm Average max diameter abdominal aorta: 19.9 mm Min left iliofemoral diameter: 6.31 mm (external iliac) Min right iliofemoral diameter: 5.33 mm (external iliac) Cannulation zone calcifications: Moderate concentric MISCELLANEOUS: No free fluid or free air. Postsurgical changes in the lower anterior abdominal wall. MUSCULOSKELETAL: Polyarticular degenerative changes. Grade 1 anterolisthesis of L4 on L5. Multilevel Schmorl's nodes. IMPRESSION: Severe mitral annular calcifications with TMVR measurements as provided. Embedded geometry of 29 mm simulated for measurements at 50.9% offset Aorto mitral angle of 123 degrees. Jose Guadalupe LVOT average area of 3.29 cm2. Diffuse atherosclerotic calcifications of the peripheral vasculature related to patient's known dialysis. Minimal luminal diameter of the right external iliac artery of 5.3 mm. Minimal luminal diameter of the left subclavian artery a 4.2 mm. Cardiomegaly with left atrial enlargement. Moderate coronary artery atherosclerosis most significantly in the LAD distribution. Air and fluid collection seen over the left chest wall leads, likely related to recent device placement. Small to moderate bilateral pleural effusions, right greater than left in keeping with cardiogenic pulmonary edema. Procedure Note Nick Schwartz MD - 10/14/2024 EXAM: 1. CTA CHEST WITH CONTRAST 2. CTA ABDOMEN PELVIS WITH CONTRAST 3. CTA TMVR HISTORY: Mitral valve protocol for pre-TMVR planning COMPARISON: CT abdomen pelvis from 09/05/2022 TECHNIQUE: 1. CTA chest with intravenous contrast was performed. MIP images wereobtained and reviewed. 2. CTA abdomen pelvis with intravenous contrast was performed. MIP imageswere obtained and reviewed. 3. CTA TMVR CONTRAST: 80 ml intravenously. FINDINGS: CTA CHEST: PULMONARY ARTERIES: Top-normal in size. No large central or segmentalpulmonary embolism. AORTA: Aortic valve appears trileaflet. Mild aortic valvularcalcifications. Carotid/axillo-subclavian arteries: Patent arch vessels. No significantstenosis of the subclavian or carotid arteries. Minimal subclavian: 4.18 mm (left), 5.96 mm (right) HEART: Mild dilatation of the left atrium. Severe mitral annularcalcifications. AICD/pacer leads terminating along the RV apex. Nopericardial effusion.. Annulus measurement: 0P-SC-Fvxuyyuw: 28.1 mm 5L-NP-Kqnrcgdk: 22.0 mm 9Z-DE-Vphujemq: 34.3 mm 2D-Area(d): 6.16 cm2 2D-P(d): 94.3 mm 0P-C-Gpcntnkbu: 66.2 mm 4U-UA-Nfukmxjx(d): 28.1 mm 1C-OH-Auujxegu(d): 22.0 mm 6J-SQ-Bwnoihto(d): 34.3 mm 3D-P(d): 96.6 mm 8T-Y-Jzdgtngom(d): 68.5 mm Embedded Geometry 29 mm, offset: 50.9 % Jose Guadalupe LVOT Avg. Diameter: 20.5 mm Min. Diameter: 10.5 mm Max. Diameter: 29.7 mm Area: 3.29 cmï¿½ Aortomitral angle: 123 deg. Jose Guadalupe-Aortomitral angle: 141 deg. MEDIASTINUM/OSMAR: Mildly prominent mediastinal lymph nodes, likelyreactive. CHEST WALL/AXILLA: Battery pack over the left chest wall with air and softtissue of fluid collection likely related to recent device placement. LUNGS/PLEURA: Mild interstitial lobular thickening in the upper lobes.Small bilateral pleural effusions with reactive atelectasis at the lungbases, likely cardiac in etiology. Central airways are clear. No pleuraleffusion or pneumothorax. CTA ABDOMEN PELVIS: LIVER: Capsular calcification in segment 4. GALLBLADDER/BILE DUCTS: Cholecystectomy. No biliary ductal dilatation. PANCREAS: Unremarkable. GI TRACT: Jody-en-Y gastric bypass. Scattered colonic diverticula. Noevidence of bowel obstruction. SPLEEN: Unremarkable. LYMPH NODES: No lymphadenopathy. ADRENAL GLANDS: Unremarkable. KIDNEYS/URETERS: No hydronephrosis. Symmetric enhancement without mass. Noureteral calculus. URINARY BLADDER: Concentric bladder wall thickening. REPRODUCTIVE ORGANS: Hysterectomy. VASCULATURE: Scattered atherosclerotic calcifications without aorticaneurysm. Severe vascular calcifications of the visceral vasculature,infrarenal abdominal aorta and bilateral common and external iliacarteries. No significant stenosis. Average min diameter abdominal aorta: 11.9 mm Average max diameter abdominal aorta: 19.9 mm Min left iliofemoral diameter: 6.31 mm (external iliac) Min right iliofemoral diameter: 5.33 mm (external iliac) Cannulation zone calcifications: Moderate concentric MISCELLANEOUS: No free fluid or free air. Postsurgical changes in thelower anterior abdominal wall. MUSCULOSKELETAL: Polyarticular degenerative changes. Grade 1anterolisthesis of L4 on L5. Multilevel Schmorl's nodes. IMPRESSION: Severe mitral annular calcifications with TMVR measurements as provided. Embedded geometry of 29 mm simulated for measurements at 50.9% offset Aorto mitral angle of 123 degrees. Jose Guadalupe LVOT average area of 3.29 cm2. Diffuse atherosclerotic calcifications of the peripheral vasculaturerelated to patient's known dialysis. Minimal luminal diameter of the rightexternal iliac artery of 5.3 mm. Minimal luminal diameter of the leftsubclavian artery a 4.2 mm. Cardiomegaly with left atrial enlargement. Moderate coronary arteryatherosclerosis most significantly in the LAD distribution. Air and fluid collection seen over the left chest wall leads, likelyrelated to recent device placement. Small to moderate bilateral pleural effusions, right greater than left inkeeping with cardiogenic pulmonary edema. Beto Aldana MD RAD CT Fi nal Result * (ABNORMAL) GLUCOSE METER, POINT OF CARE (10/14/2024 7:57 AM EDT) [facility] Glucose - POCT 184(H) 70 - 120 mg/dL 10/14/2024 8:31 PM EDT [facility] Whole blood specimen / Unknown 10/14/2024 7:57 AM EDT 10/14/2024 8:31 PM EDT Kaden Arana MD LAB POINT OF CARE TE ST DOCKED DEVICE UNSOLICITED RESULTS Final Result [facility] [address] [place] [address] * (ABNORMAL) BASIC METABOLIC PANEL (10/14/2024 4:16 AM EDT) [facility] BUN 24(H) 6 - 20 mg/dL 10/14/2024 5:23 AM EDT LAB[facility]ATORY [facility] CREATININE 4.3(H) 0.5 - 1.0 mg/dL 10/14/2024 5:23 AM EDT [facility] EGFR 11(L) >=60 mL/min 10/14/2024 5:23 AM EDT [facility] Comment:eGFR is calculated b ased on the CKD-EPI 2020 equation. SODIUM 132(L) 135 - 146 mmol/L 10/14/2024 5:23 AM EDT [facility] POTASSIUM 4.6 3.5 - 5.1 mmol/L 10/14/2024 5:23 AM EDT [facility] CHLORIDE 93(L) 98 - 107 mmol/L 10/14/2024 5:23 AM EDT [facility] CO2 24 22 - 32 mmol/L 10/14/2024 5:23 AM EDT [facility] ANION GAP 15 7 - 15 mmol/L 10/14/2024 5:23 AM EDT LAB[facility] GLUCOSE 141(H) 70 - 120 mg/dL 10/14/2024 5:23 AM EDT [facility] CALCIUM 9.3 8.4 - 10.2 mg/dL 10/14/2024 5:23 AM EDT [facility] Blood Capillary blood specimen / Unknown Capillary / Unknown 10/14/2024 4:16 AM EDT 10/14/2024 4:45 AM EDT us Marcell Garsia DO LAB BLOOD ORDERABLES Final Result Performing Organization Address City/[facility]/ZIP Co de Phone Number LABORATORY [facility] [place] [address] [place] [address] * PHOSPHORUS (10/14/2024 4:16 AM EDT) [facility] Phosphorus 4.0 2.5 - 4.8 mg/dL 10/14/2024 5:23 AM EDT [facility] Blood Capillary blood specimen / Unknown Capillary / Unknown 10/14/2024 4:16 AM EDT 10/14/2024 4:45 AM EDT us Marcell Garsia DO LAB BLOOD ORDERABLES Final Result Performing Organization Address City/[facility]/ZIP Co de Phone Number LABORATORY [facility] [place] [address] [place] [address] * (ABNORMAL) CBC (10/14/2024 4:16 AM EDT) WBC 10.10 4.00 - 10.80 K/uL 10/14/2024 4:52 AM EDT [facility]ORY [facility] RBC 2.61 3.85 - 5.15 M/uL 10/14/2024 4:52 AM EDT [facility] HGB 7.9(L) 12.0 - 15.3 g/dL 10/14/2024 4:52 AM EDT [facility] HCT 25.4(L) 36.0 - 45.2 % 10/14/2024 4:52 AM EDT [facility] MCV 97.3 81.5 - 97.5 fL 10/14/2024 4:52 AM EDT [facility] MCH 30.3 27.0 - 34.0 pg 10/14/2024 4:52 AM EDT LAB[facility] MCHC 31.1 32.0 - 36.0 g/dL 10/14/2024 4:52 AM EDT [facility] RDW 16.7 11.5 - 15.5 % 10/14/2024 4:52 AM EDT LAB[facility]ATORY [facility] PLT 207 140 - 400 K/uL 10/14/2024 4:52 AM EDT [facility] MPV 10.5 6.6 - 11.1 fL 10/14/2024 4:52 AM EDT LABORATORY [facility] nRBCs 0 <=0 /100 WBCs 10/14/2024 4:52 AM EDT LABORATORY [facility] Blood Capillary blood specimen / Unknown Capillary / Unknown 10/14/2024 4:16 AM EDT 10/14/2024 4:45 AM EDT us Marcell Garsia DO LAB BLOOD ORDERABLES Final Result LABORATORY [facility] [place] [address] [place] [address] * (ABNORMAL) GLUCOSE METER, POINT OF CARE (10/13/2024 9:26 PM EDT) Glucose - POCT 147(H) 70 - 120 mg/dL 10/14/2024 4:23 AM EDT [facility] Blood Whole blood specimen / Unknown 10/13/2024 9:26 PM EDT 10/14/2024 4:23 AM EDT us Kaden Arana MD LAB POINT OF CARE TE ST DOCKED DEVICE UNSOLICITED RESULTS Final Result [facility] [address] [place] [address] * (ABNORMAL) GLUCOSE METER, POINT OF CARE (10/13/2024 4:18 PM EDT) Glucose - POCT 236(H) 70 - 120 mg/dL 10/13/2024 4:40 PM EDT [facility] Blood Whole blood specimen / Unknown 10/13/2024 4:18 PM EDT 10/13/2024 4:40 PM EDT us Kaden Arana MD LAB POINT OF CARE TE ST DOCKED DEVICE UNSOLICITED RESULTS Final Result Performing Organization Address City/[facility]/ZIP Co de Phone Number [facility] [address] [place] [address] * (ABNORMAL) GLUCOSE METER, POINT OF CARE (10/13/2024 1:24 PM EDT) Glucose - POCT 122(H) 70 - 120 mg/dL 10/13/2024 1:42 PM EDT [email or web address] Blood Whole blood specimen / Unknown 10/13/2024 1:24 PM EDT 10/13/2024 1:42 PM EDT us Kaden Arana MD LAB POINT OF CARE TE ST DOCKED DEVICE UNSOLICITED RESULTS Final Result [facility] [address] [place] [address] * (ABNORMAL) GLUCOSE METER, POINT OF CARE (10/13/2024 7:29 AM EDT) Glucose - POCT 134(H) 70 - 120 mg/dL 10/13/2024 7:32 AM EDT [facility] Blood Whole blood specimen / Unknown 10/13/2024 7:29 AM EDT 10/13/2024 7:32 AM EDT Kaden Arana MD LAB POINT OF CARE TE ST DOCKED DEVICE UNSOLICITED RESULTS Final Result [facility] [address] [place] [address] * (ABNORMAL) BASIC METABOLIC PANEL (10/13/2024 4:29 AM EDT) Pathologist [facility] BUN 38(H) 6 - 20 mg/dL 10/13/2024 5:10 AM EDT LABORATORY C CREATININE 6.6(H) 0.5 - 1.0 mg/dL 10/13/2024 5:10 AM EDT LABORATORY C EGFR 7(L) >=60 mL/min 10/13/2024 5:10 AM EDT [facility] Comment:eGFR is calculated b ased on the CKD-EPI 2020 equation. SODIUM 132(L) 135 - 146 mmol/L 10/13/2024 5:10 AM EDT LABORATORY C POTASSIUM 5.0 3.5 - 5.1 mmol/L 10/13/2024 5:10 AM EDT [facility] CHLORIDE 94(L) 98 - 107 mmol/L 10/13/2024 5:10 AM EDT [facility] CO2 23 22 - 32 mmol/L 10/13/2024 5:10 AM EDT LAB[facility] ANION GAP 15 7 - 15 mmol/L 10/13/2024 5:10 AM EDT [facility] GLUCOSE 133(H) 70 - 120 mg/dL 10/13/2024 5:10 AM EDT [facility] CALCIUM 9.5 8.4 - 10.2 mg/dL 10/13/2024 5:10 AM EDT LABORATORY [facility] Blood Capillary blood specimen / Unknown Capillary / Unknown 10/13/2024 4:29 AM EDT 10/13/2024 4:35 AM EDT Marcell Garsia DO LAB BLOOD ORDERABLES Final Result Performing Organization Address City/[facility]/ZIP Co de Phone Number LABORATORY [facility] [address] [place] [address] * (ABNORMAL) PHOSPHORUS (10/13/2024 4:29 AM EDT) Phosphorus 5.5(H) 2.5 - 4.8 mg/dL 10/13/2024 5:10 AM EDT [facility] Blood Capillary blood specimen / Unknown Capillary / Unknown 10/13/2024 4:29 AM EDT 10/13/2024 4:35 AM EDT Marcell Garsia DO LAB BLOOD ORDERABLES Final Result Performing Organization Address [facility] de Phone Number LABORATORY [facility] [address] [place] [address] * (ABNORMAL) CBC (10/13/2024 4:29 AM EDT) WBC 8.93 4.00 - 10.80 K/uL 10/13/2024 5:08 AM EDT LAB[facility]ORY [facility] RBC 2.68 3.85 - 5.15 M/uL 10/13/2024 5:08 AM EDT LAB[facility]ORY [facility] HGB 8.2(L) 12.0 - 15.3 g/dL 10/13/2024 5:08 AM EDT LAB[facility]ORY [facility] HCT 25.7(L) 36.0 - 45.2 % 10/13/2024 5:08 AM EDT LAB[facility] MCV 95.9 81.5 - 97.5 fL 10/13/2024 5:08 AM EDT LAB[facility]ORY [facility] MCH 30.6 27.0 - 34.0 pg 10/13/2024 5:08 AM EDT LAB[facility] MCHC 31.9 32.0 - 36.0 g/dL 10/13/2024 5:08 AM EDT LAB[facility]ORY [facility] RDW 16.2 11.5 - 15.5 % 10/13/2024 5:08 AM EDT LAB[facility]ATORY [facility] PLT 190 140 - 400 K/uL 10/13/2024 5:08 AM EDT LABORATORY [facility] MPV 10.9 6.6 - 11.1 fL 10/13/2024 5:08 AM EDT LABORATORY [facility] nRBCs 0 <=0 /100 WBCs 10/13/2024 5:08 AM EDT LABORATORY [facility] Blood Capillary blood specimen / Unknown Capillary / Unknown 10/13/2024 4:29 AM EDT 10/13/2024 4:34 AM EDT Marcell Garsia DO LAB BLOOD ORDERABLES Final Result [facility] [address] [place] [address] * (ABNORMAL) GLUCOSE METER, POINT OF CARE (10/12/2024 10:23 PM EDT) Glucose - POCT 446(H) 70 - 120 mg/dL 10/13/2024 4:47 AM [facility]T [facility] / Unknown 10/12/2024 10:23 PM EDT 10/13/2024 4:47 AM EDT us Kaden Arana MD LAB POINT OF CARE TE ST DOCKED DEVICE UNSOLICITED RESULTS Final Result [facility] [address] [place] [address] * (ABNORMAL) GLUCOSE METER, POINT OF CARE (10/12/2024 4:48 PM EDT) Glucose - POCT 140(H) 70 - 120 mg/dL 10/12/2024 4:53 PM EDT [facility] Blood Whole blood specimen / Unknown 10/12/2024 4:48 PM EDT 10/12/2024 4:53 PM EDT us Kaden Arana MD LAB POINT OF CARE TE ST DOCKED DEVICE UNSOLICITED RESULTS Final Result [facility] [address] [place] [address] * TRANSESOPHAGEAL ECHO (COMPLETE) (10/12/2024 3:00 PM EDT) [facility] LEFT VENTRICULAR EJECTION FRACTION 55 % [facility] 10/12/2024 2:50 PM EDT us Beto Aldana MD ECHOCARDIOLOGY Fi nal Result Performing Organization Address City/[facility]/ZIP Co de Phone Number [facility] * (ABNORMAL) GLUCOSE METER, POINT OF CARE (10/12/2024 11:36 AM EDT) [facility] Glucose - POCT 151(H) 70 - 120 mg/dL 10/13/2024 4:44 AM EDT [email or web address] Blood Whole blood specimen / Unknown 10/12/2024 11:36 AM EDT 10/13/2024 4:44 AM EDT us Kaden Arana MD LAB POINT OF CARE TE ST DOCKED DEVICE UNSOLICITED RESULTS Final Result Performing Organization Address [facility] Co de Phone Number [facility] [address] [place] [address] * NOCTURNAL OXIMETRY (INPATIENT) (10/12/2024 7:55 AM EDT) 10/12/2024 7:55 AM EDT us Marcell Garsia DO RESPIRATORY Final Result * (ABNORMAL) GLUCOSE METER, POINT OF CARE (10/12/2024 7:42 AM EDT) [facility] Glucose - POCT 121(H) 70 - 120 mg/dL 10/12/2024 12:42 PM EDT [email or web address]IOR[facility] HEALTHJaunt Blood Whole blood specimen / Unknown 10/12/2024 7:42 AM EDT 10/12/2024 12:42 PM EDT us Kaden Arana MD LAB POINT OF CARE TE ST DOCKED DEVICE UNSOLICITED RESULTS Final Result Performing Organization Address [facility] Co de Phone Number [facility] [address] [place] [address] * (ABNORMAL) HEPATIC FUNCTION PANEL (10/12/2024 4:45 AM EDT) Albumin 3.4(L) 3.8 - 5.0 g/dL 10/12/2024 11:29 AM EDT [facility] AST 26 10 - 35 U/L 10/12/2024 11:29 AM EDT [facility] Comment:Results may be false ly elevated due to hemolysis. Alkaline Phosphatase 112 35 - 130 U/L 10/12/2024 11:29 AM EDT [facility] ALT <5(L) 10 - 35 U/L 10/12/2024 11:29 AM EDT [facility] Bilirubin, Total 0.3 <=1.2 mg/dL 10/12/2024 11:29 AM EDT LAB[facility] Bilirubin, Direct <0.1 0.0 - 0.3 mg/dL 10/12/2024 11:29 AM EDT [facility]ORY [facility] Comment:Result may be falsel y decreased due to hemolysis. Protein 6.1 6.0 - 8.3 g/dL 10/12/2024 11:29 AM EDT [facility] Blood Venous blood specimen / Unknown Venipuncture / Unknown 10/12/2024 4:45 AM EDT 10/12/2024 4:48 AM EDT us Haroon Pike MD LAB BLOOD ORDERABLES Final Resul t [facility] [address] [place], [place] [id number] * (ABNORMAL) BASIC METABOLIC PANEL (10/12/2024 4:45 AM EDT) BUN 29(H) 6 - 20 mg/dL 10/12/2024 5:35 AM EDT [facility] CREATININE 5.3(H) 0.5 - 1.0 mg/dL 10/12/2024 5:35 AM EDT [facility] EGFR 8(L) >=60 mL/min 10/12/2024 5:35 AM EDT [facility] Comment:eGFR is calculated b ased on the CKD-EPI 2020 equation. SODIUM 134(L) 135 - 146 mmol/L 10/12/2024 5:35 AM EDT [facility] POTASSIUM 5.1 3.5 - 5.1 mmol/L 10/12/2024 5:35 AM EDT [facility] CHLORIDE 95(L) 98 - 107 mmol/L 10/12/2024 5:35 AM EDT [facility] CO2 24 22 - 32 mmol/L 10/12/2024 5:35 AM EDT [facility] ANION GAP 15 7 - 15 mmol/L 10/12/2024 5:35 AM EDT [facility] GLUCOSE 168(H) 70 - 120 mg/dL 10/12/2024 5:35 AM EDT [facility] CALCIUM 9.4 8.4 - 10.2 mg/dL 10/12/2024 5:35 AM EDT [facility] Blood Venous blood specimen / Unknown Venipuncture / Unknown 10/12/2024 4:45 AM EDT 10/12/2024 4:48 AM EDT Marcell Garsia DO LAB BLOOD ORDERABLES Final Result LABORATORY [facility] [address] [place], [place] [id number] * (ABNORMAL) PHOSPHORUS (10/12/2024 4:45 AM EDT) Pathologist [facility] Phosphorus 5.3(H) 2.5 - 4.8 mg/dL 10/12/2024 5:35 AM EDT LABORATORY C Blood Venous blood specimen / Unknown Venipuncture / Unknown 10/12/2024 4:45 AM EDT 10/12/2024 4:48 AM EDT Marcell Garsia DO LAB BLOOD ORDERABLES Final Result LABORATORY [facility] [address] [place] [address] * (ABNORMAL) CBC (10/12/2024 4:45 AM EDT) [facility] WBC 9.58 4.00 - 10.80 K/uL 10/12/2024 4:59 AM EDT LAB[facility] RBC 2.94 3.85 - 5.15 M/uL 10/12/2024 4:59 AM EDT [facility] HGB 8.8(L) 12.0 - 15.3 g/dL 10/12/2024 4:59 AM EDT [facility] HCT 28.0(L) 36.0 - 45.2 % 10/12/2024 4:59 AM EDT [facility] MCV 95.2 81.5 - 97.5 fL 10/12/2024 4:59 AM EDT [facility] MCH 29.9 27.0 - 34.0 pg 10/12/2024 4:59 AM EDT LABORATORY [facility] MCHC 31.4 32.0 - 36.0 g/dL 10/12/2024 4:59 AM EDT LABORATORY [facility] RDW 16.1 11.5 - 15.5 % 10/12/2024 4:59 AM EDT LABORATORY [facility] PLT 209 140 - 400 K/uL 10/12/2024 4:59 AM EDT LABORATORY [facility] MPV 10.0 6.6 - 11.1 fL 10/12/2024 4:59 AM EDT LABORATORY [facility] nRBCs 0 <=0 /100 WBCs 10/12/2024 4:59 AM EDT LABORATORY [facility] Blood Venous blood specimen / Unknown Venipuncture / Unknown 10/12/2024 4:45 AM EDT 10/12/2024 4:48 AM EDT us Marcell Garsia DO LAB BLOOD ORDERABLES Final Result LABORATORY [facility] [address] [place] [address] * (ABNORMAL) GLUCOSE METER, POINT OF CARE (10/12/2024 12:04 AM EDT) Glucose - POCT 364(H) 70 - 120 mg/dL 10/12/2024 12:06 AM EDT [facility] Blood Whole blood specimen / Unknown 10/12/2024 12:04 AM EDT 10/12/2024 12:06 AM EDT us Kaden Arana MD LAB POINT OF CARE TE ST DOCKED DEVICE UNSOLICITED RESULTS Final Result [facility] [address] [place] [address] * (ABNORMAL) GLUCOSE METER, POINT OF CARE (10/11/2024 10:38 PM EDT) Glucose - POCT >500(HH) 70 - 120 mg/dL 10/12/2024 8:51 AM EDT [facility] Device Comment Notified Provider 10/12/2024 8:51 AM EDT [facility] Blood Whole blood specimen / Unknown 10/11/2024 10:38 PM EDT 10/12/2024 8:51 AM EDT us Kaden Arana MD LAB POINT OF CARE TE ST DOCKED DEVICE UNSOLICITED RESULTS Final Result Performing Organization Address City/[facility]/ZIP Co de Phone Number [facility] [address] [place] [address] * (ABNORMAL) GLUCOSE METER, POINT OF CARE (10/11/2024 9:06 PM EDT) Glucose - POCT 425(H) 70 - 120 mg/dL 10/11/2024 9:09 PM EDT [facility] Blood Whole blood specimen / Unknown 10/11/2024 9:06 PM EDT 10/11/2024 9:09 PM EDT us Kaden Arana MD LAB POINT OF CARE TE ST DOCKED DEVICE UNSOLICITED RESULTS Final Result [facility] [address] [place] [address] * TRANSESOPHAGEAL ECHO (COMPLETE) (10/11/2024 5:39 PM EDT) 10/11/2024 4:22 PM EDT us Diane Arreola DO ECHOCARDIOLOGY Final Result [facility] * (ABNORMAL) BASIC METABOLIC PANEL (10/11/2024 6:20 AM EDT) BUN 55(H) 6 - 20 mg/dL 10/11/2024 6:54 AM EDT [facility] CREATININE 8.4(H) 0.5 - 1.0 mg/dL 10/11/2024 6:54 AM EDT LAB[facility]ORY [facility] EGFR 5(L) >=60 mL/min 10/11/2024 6:54 AM EDT [facility] Comment:eGFR is calculated b ased on the CKD-EPI 2020 equation. SODIUM 128(L) 135 - 146 mmol/L 10/11/2024 6:54 AM EDT [facility] POTASSIUM 6.0(H) 3.5 - 5.1 mmol/L 10/11/2024 6:54 AM EDT [facility] CHLORIDE 90(L) 98 - 107 mmol/L 10/11/2024 6:54 AM EDT [facility] CO2 20(L) 22 - 32 mmol/L 10/11/2024 6:54 AM EDT [facility] ANION GAP 18(H) 7 - 15 mmol/L 10/11/2024 6:54 AM EDT [facility] GLUCOSE 108 70 - 120 mg/dL 10/11/2024 6:54 AM EDT [facility] CALCIUM 9.2 8.4 - 10.2 mg/dL 10/11/2024 6:54 AM EDT [facility] Blood Venous blood specimen / Unknown Venipuncture / Unknown 10/11/2024 6:20 AM EDT 10/11/2024 6:24 AM EDT us Marcell Garsia DO LAB BLOOD ORDERABLES Final Result Performing Organization Address City/[facility]/ZIP Co de Phone Number LABORATORY [facility] [address] [place] [address] * (ABNORMAL) PHOSPHORUS (10/11/2024 6:20 AM EDT) Pathologist [facility] Phosphorus 6.3(H) 2.5 - 4.8 mg/dL 10/11/2024 6:54 AM EDT [facility] Blood Venous blood specimen / Unknown Venipuncture / Unknown 10/11/2024 6:20 AM EDT 10/11/2024 6:24 AM EDT Marcell Garsia DO LAB BLOOD ORDERABLES Final Result Performing Organization Address [facility] Co de Phone Number LABORATORY [facility] [address] [place] [address] * (ABNORMAL) CBC (10/11/2024 6:20 AM EDT) [facility] WBC 10.73 4.00 - 10.80 K/uL 10/11/2024 6:41 AM EDT [facility] RBC 2.94 3.85 - 5.15 M/uL 10/11/2024 6:41 AM EDT [facility] HGB 8.8(L) 12.0 - 15.3 g/dL 10/11/2024 6:41 AM EDT [facility] HCT 27.7(L) 36.0 - 45.2 % 10/11/2024 6:41 AM EDT [facility] MCV 94.2 81.5 - 97.5 fL 10/11/2024 6:41 AM EDT [facility] MCH 29.9 27.0 - 34.0 pg 10/11/2024 6:41 AM EDT [facility] MCHC 31.8 32.0 - 36.0 g/dL 10/11/2024 6:41 AM EDT [facility] RDW 16.1 11.5 - 15.5 % 10/11/2024 6:41 AM EDT [facility] PLT 202 140 - 400 K/uL 10/11/2024 6:41 AM EDT [facility] MPV 10.2 6.6 - 11.1 fL 10/11/2024 6:41 AM EDT LABORATORY [facility] nRBCs 0 <=0 /100 WBCs 10/11/2024 6:41 AM EDT LABORATORY [facility] Blood Venous blood specimen / Unknown Venipuncture / Unknown 10/11/2024 6:20 AM EDT 10/11/2024 6:23 AM EDT us Marcell Garsia DO LAB BLOOD ORDERABLES Final Result LABORATORY [facility] [address] [place] [address] * (ABNORMAL) GLUCOSE METER, POINT OF CARE (10/10/2024 9:04 PM EDT) [facility] Glucose - POCT 307(H) 70 - 120 mg/dL 10/11/2024 4:09 AM EDT [facility] Blood Whole blood specimen / Unknown 10/10/2024 9:04 PM EDT 10/11/2024 4:09 AM EDT Kaden Arana MD LAB POINT OF CARE TE ST DOCKED DEVICE UNSOLICITED RESULTS Final Result [facility] [address] [place] [address] * (ABNORMAL) BNP, NT-PRO (10/10/2024 5:56 PM EDT) Pathologist [facility] BNP, NT-Pro 32,069(H) <300 pg/mL 10/10/2024 6:29 PM EDT LABORATORY [facility] Blood Venous blood specimen / Unknown Venipuncture / Unknown 10/10/2024 5:56 PM EDT 10/10/2024 6:00 PM EDT Narrative LABORATORY [facility] - 10/10/2024 6:29 PM EDT Exclude Heart Failure: <300 pg/mL Diagnose Heart Failure: Age <50 yr: >450 pg/mL 50-75 yr: >900 pg/mL >75 yr: >1800 pg/mL GFR is 30-59 mL/min: >1200 pg/mL or Age-adjusted values GFR <30 mL/min: do not use, not reliable Prognostic threshold: 1000 pg/mL us Kaden Arana MD LAB BLOOD ORDERABLES Final Resul t LABORATORY [facility] [address] [place] [address] * (ABNORMAL) GLUCOSE METER, POINT OF CARE (10/10/2024 4:46 PM EDT) Glucose - POCT 287(H) 70 - 120 mg/dL 10/10/2024 4:50 PM EDT [facility] Blood Whole blood specimen / Unknown 10/10/2024 4:46 PM EDT 10/10/2024 4:50 PM EDT us Kaden Arana MD LAB POINT OF CARE TE ST DOCKED DEVICE UNSOLICITED RESULTS Final Result Performing Organization Address [facility]/ZIP Co de Phone Number [facility] [address] [place] [address] * (ABNORMAL) GLUCOSE METER, POINT OF CARE (10/10/2024 11:33 AM EDT) Glucose - POCT 264(H) 70 - 120 mg/dL 10/10/2024 11:56 AM EDT [facility] Blood Whole blood specimen / Unknown 10/10/2024 11:33 AM EDT 10/10/2024 11:56 AM EDT us Kaden Arana MD LAB POINT OF CARE TE ST DOCKED DEVICE UNSOLICITED RESULTS Final Result Performing Organization Address City/[facility]/ZIP Co de Phone Number [facility] [address] [place] [address] * (ABNORMAL) GLUCOSE METER, POINT OF CARE (10/10/2024 7:34 AM EDT) Glucose - POCT 134(H) 70 - 120 mg/dL 10/10/2024 4:18 PM EDT [facility] Blood Whole blood specimen / Unknown 10/10/2024 7:34 AM EDT 10/10/2024 4:18 PM EDT us Kaden Arana MD LAB POINT OF CARE TE ST DOCKED DEVICE UNSOLICITED RESULTS Final Result [facility] [address] [place] [address] * XR CHEST 2 VIEWS (10/09/2024 11:19 PM EDT) Anatomical Region Laterality Modality Chest Digital Radiogra phy 10/09/2024 11:2 5 PM EDT Impressions 10/09/2024 11:22 PM EDT IMPRESSION Similar findings of CHF. Narrative 10/09/2024 11:22 PM EDT EXAM XR CHEST 2 VIEWS-10/09/2024 11:19 pm HISTORY CHF COMPARISON Chest radiograph 10/08/2024. TECHNIQUE AP semi upright and lateral radiographs of the chest. FINDINGS Redemonstrated findings of CHF with mild pulmonary edema, small bilateral pleural effusions and bibasilar atelectatic changes. The cardiomediastinal silhouette is unchanged. Multi lead left chest wall ICD appears intact and stable. No acute osseous finding. Procedure Note Jose Santamaria MD - 10/09/2024 EXAM XR CHEST 2 VIEWS-10/09/2024 11:19 pm HISTORY CHF COMPARISON Chest radiograph 10/08/2024. TECHNIQUE AP semi upright and lateral radiographs of the chest. FINDINGS Redemonstrated findings of CHF with mild pulmonary edema, small bilateralpleural effusions and bibasilar atelectatic changes. Thecardiomediastinal silhouette is unchanged. Multi lead left chest wall ICDappears intact and stable. No acute osseous finding. IMPRESSION IMPRESSION Similar findings of CHF. us Kaden Arana MD RADIOLOGY (RAD GENERAL) Final Re sult * (ABNORMAL) GLUCOSE METER, POINT OF CARE (10/09/2024 8:57 PM EDT) Glucose - POCT 315(H) 70 - 120 mg/dL 10/09/2024 9:08 PM EDT [email or web address]ALTHAll[facility] Blood Whole blood specimen / Unknown 10/09/2024 8:57 PM EDT 10/09/2024 9:08 PM EDT us Kaden Arana MD LAB POINT OF CARE TE ST DOCKED DEVICE UNSOLICITED RESULTS Final Result [facility] [address] [place] [address] * (ABNORMAL) GLUCOSE METER, POINT OF CARE (10/09/2024 4:48 PM EDT) Glucose - POCT 238(H) 70 - 120 mg/dL 10/09/2024 4:50 PM EDT [facility] Blood Whole blood specimen / Unknown 10/09/2024 4:48 PM EDT 10/09/2024 4:50 PM EDT us Kaden Arana MD LAB POINT OF CARE TE ST DOCKED DEVICE UNSOLICITED RESULTS Final Result Performing Organization Address City/[facility]/ZIP Co de Phone Number [facility] [address] [place] [address] * (ABNORMAL) GLUCOSE METER, POINT OF CARE (10/09/2024 12:34 PM EDT) Pathologist [facility] Glucose - POCT 190(H) 70 - 120 mg/dL 10/09/2024 12:38 PM EDT [email or web address]IOR[facility]ALTHAll[facility] Blood Whole blood specimen / Unknown 10/09/2024 12:34 PM EDT 10/09/2024 12:38 PM EDT us Kaden Arana MD LAB POINT OF CARE TE ST DOCKED DEVICE UNSOLICITED RESULTS Final Result [facility] [address] [place] [address] * (ABNORMAL) GLUCOSE METER, POINT OF CARE (10/09/2024 8:13 AM EDT) Pathologist [facility] Glucose - POCT 131(H) 70 - 120 mg/dL 10/09/2024 8:18 AM EDT [facility] Blood Whole blood specimen / Unknown 10/09/2024 8:13 AM EDT 10/09/2024 8:18 AM EDT Kaden Arana MD LAB POINT OF CARE TE ST DOCKED DEVICE UNSOLICITED RESULTS Final Result [facility] [address] [place] [address] * (ABNORMAL) PHOSPHORUS (10/09/2024 5:07 AM EDT) Pathologist [facility] Phosphorus 5.6(H) 2.5 - 4.8 mg/dL 10/09/2024 5:47 AM EDT [facility]ORY [facility] Blood Venous blood specimen / Unknown Midline / Unknown 10/09/2024 5:07 AM EDT 10/09/2024 5:17 AM EDT Marcell Garsia DO LAB BLOOD ORDERABLES Final Result [facility] [address] [place] [address] * (ABNORMAL) CBC (10/09/2024 5:07 AM EDT) Pathologist [facility] WBC 9.57 4.00 - 10.80 K/uL 10/09/2024 5:29 AM EDT LAB[facility]ORY [facility] RBC 2.71 3.85 - 5.15 M/uL 10/09/2024 5:29 AM EDT [facility] HGB 8.2(L) 12.0 - 15.3 g/dL 10/09/2024 5:29 AM EDT [facility] HCT 26.7(L) 36.0 - 45.2 % 10/09/2024 5:29 AM EDT LAB[facility] MCV 98.5 81.5 - 97.5 fL 10/09/2024 5:29 AM EDT LABORATORY [facility] MCH 30.3 27.0 - 34.0 pg 10/09/2024 5:29 AM EDT LABORATORY [facility] MCHC 30.7 32.0 - 36.0 g/dL 10/09/2024 5:29 AM EDT LABORATORY [facility] RDW 16.8 11.5 - 15.5 % 10/09/2024 5:29 AM EDT LABORATORY [facility] PLT 194 140 - 400 K/uL 10/09/2024 5:29 AM EDT LABORATORY [facility] MPV 9.8 6.6 - 11.1 fL 10/09/2024 5:29 AM EDT LABORATORY [facility] nRBCs 0 <=0 /100 WBCs 10/09/2024 5:29 AM EDT LABORATORY [facility] Blood Venous blood specimen / Unknown Midline / Unknown 10/09/2024 5:07 AM EDT 10/09/2024 5:17 AM EDT Marcell Garsia DO LAB BLOOD ORDERABLES Final Result LABORATORY [facility] [address] [place] [address] * MAGNESIUM (10/09/2024 5:07 AM EDT) Magnesium 2.2 1.5 - 2.6 mg/dL 10/09/2024 5:47 AM EDT LABORATORY [facility] Blood Venous blood specimen / Unknown Midline / Unknown 10/09/2024 5:07 AM EDT 10/09/2024 5:17 AM EDT Marcell Garsia DO LAB BLOOD ORDERABLES Final Result LABORATORY [facility] [address] [place] [address] * (ABNORMAL) BASIC METABOLIC PANEL (10/09/2024 5:07 AM EDT) BUN 26(H) 6 - 20 mg/dL 10/09/2024 5:47 AM EDT [facility] CREATININE 5.7(H) 0.5 - 1.0 mg/dL 10/09/2024 5:47 AM EDT [facility]ORY [facility] EGFR 8(L) >=60 mL/min 10/09/2024 5:47 AM EDT LAB[facility]ORY [facility] Comment:eGFR is calculated b ased on the CKD-EPI 2020 equation. SODIUM 134(L) 135 - 146 mmol/L 10/09/2024 5:47 AM EDT LAB[facility]ORY [facility] POTASSIUM 4.5 3.5 - 5.1 mmol/L 10/09/2024 5:47 AM EDT LAB[facility] CHLORIDE 94(L) 98 - 107 mmol/L 10/09/2024 5:47 AM EDT LAB[facility] CO2 27 22 - 32 mmol/L 10/09/2024 5:47 AM EDT LABORATORY C ANION GAP 13 7 - 15 mmol/L 10/09/2024 5:47 AM EDT [facility] GLUCOSE 120 70 - 120 mg/dL 10/09/2024 5:47 AM EDT LABORATORY C CALCIUM 9.1 8.4 - 10.2 mg/dL 10/09/2024 5:47 AM EDT LABORATORY C Blood Venous blood specimen / Unknown Midline / Unknown 10/09/2024 5:07 AM EDT 10/09/2024 5:17 AM EDT us Marcell Garsia DO LAB BLOOD ORDERABLES Final Result LABORATORY [facility] [address] [place] [address] * (ABNORMAL) GLUCOSE METER, POINT OF CARE (10/08/2024 9:58 PM EDT) [facility] Glucose - POCT 213(H) 70 - 120 mg/dL 10/09/2024 3:41 AM EDT [email or web address] Blood Whole blood specimen / Unknown 10/08/2024 9:58 PM EDT 10/09/2024 3:41 AM EDT us Kaden Arana MD LAB POINT OF CARE TE ST DOCKED DEVICE UNSOLICITED RESULTS Final Result [facility] [address] [place] [address] * MAGNESIUM (10/08/2024 8:34 PM EDT) Pathologist [facility] Magnesium 2.1 1.5 - 2.6 mg/dL 10/08/2024 9:20 PM EDT LABORATORY [facility] Blood Arterial blood specimen / Unknown Midline / Unknown 10/08/2024 8:34 PM EDT 10/08/2024 8:42 PM EDT Marcell Garsia DO LAB BLOOD ORDERABLES Final Result Performing Organization Address City/[facility]/ZIP Co de Phone Number LABORATORY [facility] [address] [place] [address] * (ABNORMAL) BASIC METABOLIC PANEL (10/08/2024 8:34 PM EDT) Pathologist [facility] BUN 24(H) 6 - 20 mg/dL 10/08/2024 9:20 PM EDT LAB[facility]ATORY [facility] CREATININE 5.1(H) 0.5 - 1.0 mg/dL 10/08/2024 9:20 PM EDT LABORATORY C EGFR 9(L) >=60 mL/min 10/08/2024 9:20 PM EDT LAB[facility]ORY [facility] Comment:eGFR is calculated b ased on the CKD-EPI 2020 equation. SODIUM 130(L) 135 - 146 mmol/L 10/08/2024 9:20 PM EDT LAB[facility]ATORY [facility] POTASSIUM 4.0 3.5 - 5.1 mmol/L 10/08/2024 9:20 PM EDT LAB[facility] CHLORIDE 92(L) 98 - 107 mmol/L 10/08/2024 9:20 PM EDT LAB[facility]ORY [facility] CO2 25 22 - 32 mmol/L 10/08/2024 9:20 PM EDT LAB[facility]ORY [facility] ANION GAP 13 7 - 15 mmol/L 10/08/2024 9:20 PM EDT LAB[facility] GLUCOSE 263(H) 70 - 120 mg/dL 10/08/2024 9:20 PM EDT LAB[facility]ORY [facility] CALCIUM 9.0 8.4 - 10.2 mg/dL 10/08/2024 9:20 PM EDT LABORATORY [facility] Blood Arterial blood specimen / Unknown Midline / Unknown 10/08/2024 8:34 PM EDT 10/08/2024 8:42 PM EDT us Marcell Garsia DO LAB BLOOD ORDERABLES Final Result LABORATORY [facility] [address] [place] [address] * XR CHEST 1 VIEW (10/08/2024 7:08 PM EDT) Anatomical Region Laterality Modality Chest Computed Radiogr aphy 10/08/2024 8:45 PM EDT Impressions 10/08/2024 8:54 PM EDT IMPRESSION 1. Bilateral hazy airspace opacities, likely pulmonary edema. 2. New hazy opacities in the right perihilar/infrahilar lung may favored to represent infection. I have personally reviewed this examination and agree with the resident/fellow physician's interpretation. Narrative 10/08/2024 8:54 PM EDT EXAM XR CHEST 1 VIEW-10/08/2024 7:08 pm HISTORY New hypoxia. COMPARISON XR CHEST 2 VIEWS, ACC: [id number], dated 2024-10-07 21:01:27; CHEST 2 VIEWS AP OR PA AND LATERAL, ACC: [id number], dated 2017-04-24 17:38:20 TECHNIQUE Semi-upright view of the chest. FINDINGS Lines/Tubes/Devices: Left-sided cardiac pacemaker. Lungs/Pleura: New hazy airspace opacities in the right perihilar/infrahilar lung., new since 10/07/2024. No sizable pleural effusions. No pneumothorax. Heart/Mediastinum: Size and contours are unchanged. Atherosclerotic calcifications of the aorta. Central pulmonary venous distension. Bones/Soft Tissues: Degenerative osseous changes. Upper Abdomen: Visualized portions are unremarkable. Procedure Note Alfred Polanco MD - 10/08/2024 EXAM XR CHEST 1 VIEW-10/08/2024 7:08 pm HISTORY New hypoxia. COMPARISON XR CHEST 2 VIEWS, ACC: [id number], dated 2024-10-07 21:01:27; CHEST 2 VIEWS AP OR PA AND LATERAL, ACC: [id number], dated :38:20 TECHNIQUE Semi-upright view of the chest. FINDINGS Lines/Tubes/Devices: Left-sided cardiac pacemaker. Lungs/Pleura: New hazy airspace opacities in the rightperihilar/infrahilar lung., new since 10/07/2024. No sizable pleuraleffusions. No pneumothorax. Heart/Mediastinum: Size and contours are unchanged. Atheroscleroticcalcifications of the aorta. Central pulmonary venous distension. Bones/Soft Tissues: Degenerative osseous changes. Upper Abdomen: Visualized portions are unremarkable. IMPRESSION IMPRESSION 1. Bilateral hazy airspace opacities, likely pulmonary edema. 2. New hazy opacities in the right perihilar/infrahilar lung may favoredto represent infection. I have personally reviewed this examination and agree with the resident/fellow physician's interpretation. Marcell Garsia DO RADIOLOGY (RAD GENERA L) Final Result * (ABNORMAL) GLUCOSE METER, POINT OF CARE (10/08/2024 8:23 AM EDT) Pathologist [facility] Glucose - POCT 162(H) 70 - 120 mg/dL 10/09/2024 3:37 AM EDT [facility] Blood Whole blood specimen / Unknown 10/08/2024 8:23 AM EDT 10/09/2024 3:37 AM EDT Kaden Arana MD LAB POINT OF CARE TE ST DOCKED DEVICE UNSOLICITED RESULTS Final Result [facility] [address] [place] [address] * MAGNESIUM (10/08/2024 3:27 AM EDT) Pathologist [facility] Magnesium 2.5 1.5 - 2.6 mg/dL 10/08/2024 4:17 AM EDT LABORATORY C Blood Venous blood specimen / Unknown Venipuncture / Unknown 10/08/2024 3:27 AM EDT 10/08/2024 3:41 AM EDT Marcell Garsia DO LAB BLOOD ORDERABLES Final Result LABORATORY [facility] [address] [place] [address] * (ABNORMAL) BASIC METABOLIC PANEL (10/08/2024 3:27 AM EDT) BUN 52(H) 6 - 20 mg/dL 10/08/2024 4:17 AM EDT [facility] CREATININE 9.2(H) 0.5 - 1.0 mg/dL 10/08/2024 4:17 AM EDT [facility] EGFR 4(L) >=60 mL/min 10/08/2024 4:17 AM EDT [facility] Comment:eGFR is calculated b ased on the CKD-EPI 2020 equation. SODIUM 133(L) 135 - 146 mmol/L 10/08/2024 4:17 AM EDT [facility] POTASSIUM 5.2(H) 3.5 - 5.1 mmol/L 10/08/2024 4:17 AM EDT [facility] CHLORIDE 91(L) 98 - 107 mmol/L 10/08/2024 4:17 AM EDT [facility] CO2 25 22 - 32 mmol/L 10/08/2024 4:17 AM EDT [facility] ANION GAP 17(H) 7 - 15 mmol/L 10/08/2024 4:17 AM EDT [facility] GLUCOSE 169(H) 70 - 120 mg/dL 10/08/2024 4:17 AM EDT [facility] CALCIUM 8.8 8.4 - 10.2 mg/dL 10/08/2024 4:17 AM EDT LABORATORY C Blood Venous blood specimen / Unknown Venipuncture / Unknown 10/08/2024 3:27 AM EDT 10/08/2024 3:41 AM EDT Marcell Garsia DO LAB BLOOD ORDERABLES Final Result [facility] [address] [place] [address] * (ABNORMAL) PHOSPHORUS (10/08/2024 3:27 AM EDT) Phosphorus 7.3(H) 2.5 - 4.8 mg/dL 10/08/2024 4:17 AM EDT [facility] Blood Venous blood specimen / Unknown Venipuncture / Unknown 10/08/2024 3:27 AM EDT 10/08/2024 3:41 AM EDT us Marcell Garsia DO LAB BLOOD ORDERABLES Final Result Performing Organization Address [facility] Co de Phone Number LABORATORY [facility] [address] [place] [address] * (ABNORMAL) CBC (10/08/2024 3:27 AM EDT) Pathologist [facility] WBC 10.76 4.00 - 10.80 K/uL 10/08/2024 3:53 AM EDT [facility] RBC 2.79 3.85 - 5.15 M/uL 10/08/2024 3:53 AM EDT [facility] HGB 8.3(L) 12.0 - 15.3 g/dL 10/08/2024 3:53 AM EDT [facility] HCT 27.9(L) 36.0 - 45.2 % 10/08/2024 3:53 AM EDT [facility] MCV 100.0 81.5 - 97.5 fL 10/08/2024 3:53 AM EDT [facility] MCH 29.7 27.0 - 34.0 pg 10/08/2024 3:53 AM EDT [facility] MCHC 29.7 32.0 - 36.0 g/dL 10/08/2024 3:53 AM EDT [facility] RDW 16.7 11.5 - 15.5 % 10/08/2024 3:53 AM EDT LAB[facility]ATORY [facility] PLT 217 140 - 400 K/uL 10/08/2024 3:53 AM EDT LAB[facility]ATORY [facility] MPV 9.9 6.6 - 11.1 fL 10/08/2024 3:53 AM EDT LABORATORY [facility] nRBCs 0 <=0 /100 WBCs 10/08/2024 3:53 AM EDT LABORATORY [facility] Blood Venous blood specimen / Unknown Venipuncture / Unknown 10/08/2024 3:27 AM EDT 10/08/2024 3:41 AM EDT us Marcell Garsia DO LAB BLOOD ORDERABLES Final Result LABORATORY [facility] [address] [place] [address] * (ABNORMAL) GLUCOSE METER, POINT OF CARE (10/07/2024 9:39 PM EDT) [facility] Glucose - POCT 252(H) 70 - 120 mg/dL 10/08/2024 3:09 AM EDT [facility] Blood Whole blood specimen / Unknown 10/07/2024 9:39 PM EDT 10/08/2024 3:09 AM EDT Kaden Arana MD LAB POINT OF CARE TE ST DOCKED DEVICE UNSOLICITED RESULTS Final Result Performing Organization Address City/[facility]/ZIP Co de Phone Number [facility] [address] [place] [address] * XR CHEST 2 VIEWS (10/07/2024 9:10 PM EDT) Anatomical Region Laterality Modality Chest Digital Radiogra phy 10/07/2024 9:39 PM EDT Impressions 10/07/2024 9:36 PM EDT IMPRESSION 1. No discernible pneumothorax. 2. Small pleural effusions. Narrative 10/07/2024 9:36 PM EDT EXAM XR CHEST 2 VIEWS-10/07/2024 9:10 pm HISTORY s/p upgrade to a biventricualr ICD, rule out pneumothorax COMPARISON CHEST 2 VIEWS AP OR PA AND LATERAL, ACC: [id number], dated 2017-04-24 17:38:20; CHEST 2 VIEWS AP OR PA AND LATERAL, ACC: [id number], dated 2016-06-08 09:59:39; CHEST 2 VIEWS AP OR PA AND LATERAL, ACC: [id number], dated 2015-09-07 16:51:51 TECHNIQUE Frontal and lateral chest radiographs obtained. FINDINGS Left subclavian ICD. Stable cardiomediastinal silhouette. Mild atelectatic changes. Small pleural effusions. No discernible pneumothorax. Degenerative osseous changes. Procedure Note Frederick Jara MD - 10/07/2024 EXAM XR CHEST 2 VIEWS-10/07/2024 9:10 pm HISTORY s/p upgrade to a biventricualr ICD, rule out pneumothorax COMPARISON CHEST 2 VIEWS AP OR PA AND LATERAL, ACC: [id number], dated :38:20; CHEST 2 VIEWS AP OR PA AND LATERAL, ACC: [id number], dated :59:39; CHEST 2 VIEWS AP OR PA AND LATERAL, ACC: [id number], dated :51:51 TECHNIQUE Frontal and lateral chest radiographs obtained. FINDINGS Left subclavian ICD. Stable cardiomediastinal silhouette. Mild atelectatic changes. Small pleural effusions. No discernible pneumothorax. Degenerative osseous changes. IMPRESSION IMPRESSION 1. No discernible pneumothorax. 2. Small pleural effusions. us Arianne Carrizales IV, MD RADIOLOGY ([facility]) Final Result * (ABNORMAL) GLUCOSE METER, POINT OF CARE (10/07/2024 5:28 PM EDT) Glucose - POCT 126(H) 70 - 120 mg/dL 10/08/2024 3:09 AM [facility] / Unknown 10/07/2024 5:28 PM EDT 10/08/2024 3:08 AM EDT Kaden Arana MD LAB POINT OF CARE TE ST DOCKED DEVICE UNSOLICITED RESULTS Final Result [facility] [address] [place] [address] * EKG (10/07/2024 5:14 PM EDT) 10/07/2024 5:14 PM EDT Narrative Procedure Note Beto Hanson, - 10/07/2024 5:14 PM EDT REASON FOR STUDY: AICD CONCLUSIONS: AV dual-paced rhythm When compared with ECG of 05-Oct-2024 17:20, No significant change was found Ventricular Rate: 60 Atrial Rate: 60 AR Interval: 196 QRS Duration: 180 QT/QTc: 518/518 ms P-R-T Alma: 57 : 262 : 6 degrees us Arianne Carrizales IV, MD EKG Final Result [facility] * MAGNESIUM (10/07/2024 4:44 PM EDT) Magnesium 2.3 1.5 - 2.6 mg/dL 10/07/2024 5:24 PM EDT LABORATORY [facility] Blood Venous blood specimen / Unknown Venipuncture / Unknown 10/07/2024 4:44 PM EDT 10/07/2024 4:48 PM EDT us Marcell Garsia DO LAB BLOOD ORDERABLES Final Result LABORATORY [facility] [address] [place] [address] * (ABNORMAL) BASIC METABOLIC PANEL (10/07/2024 4:44 PM EDT) BUN 46(H) 6 - 20 mg/dL 10/07/2024 5:24 PM EDT LABORATORY C CREATININE 8.7(H) 0.5 - 1.0 mg/dL 10/07/2024 5:24 PM EDT LABORATORY [facility] EGFR 5(L) >=60 mL/min 10/07/2024 5:24 PM EDT LABORATORY GM Comment:eGFR is calculated b ased on the CKD-EPI 2020 equation. SODIUM 132(L) 135 - 146 mmol/L 10/07/2024 5:24 PM EDT LABORATORY [facility] POTASSIUM 5.2(H) 3.5 - 5.1 mmol/L 10/07/2024 5:24 PM EDT LABORATORY [facility] CHLORIDE 91(L) 98 - 107 mmol/L 10/07/2024 5:24 PM EDT LABORATORY [facility] CO2 24 22 - 32 mmol/L 10/07/2024 5:24 PM EDT LABORATORY [facility] ANION GAP 17(H) 7 - 15 mmol/L 10/07/2024 5:24 PM EDT LAB[facility]ATORY [facility] GLUCOSE 124(H) 70 - 120 mg/dL 10/07/2024 5:24 PM EDT LABORATORY [facility] CALCIUM 8.5 8.4 - 10.2 mg/dL 10/07/2024 5:24 PM EDT LABORATORY C Blood Venous blood specimen / Unknown Venipuncture / Unknown 10/07/2024 4:44 PM EDT 10/07/2024 4:48 PM EDT Marcell Garsia DO LAB BLOOD ORDERABLES Final Result LABORATORY [facility] [address] [place] [address] * (ABNORMAL) GLUCOSE METER, POINT OF CARE (10/07/2024 11:34 AM EDT) Glucose - POCT 135(H) 70 - 120 mg/dL 10/08/2024 3:08 AM EDT [facility] Blood Whole blood specimen / Unknown 10/07/2024 11:34 AM EDT 10/08/2024 3:08 AM EDT Kaden Arana MD LAB POINT OF CARE TE ST DOCKED DEVICE UNSOLICITED RESULTS Final Result [facility] [address] [place] [address] * (ABNORMAL) GLUCOSE METER, POINT OF CARE (10/07/2024 6:17 AM EDT) Glucose - POCT 133(H) 70 - 120 mg/dL 10/08/2024 3:08 AM EDT [facility] Blood Whole blood specimen / Unknown 10/07/2024 6:17 AM EDT 10/08/2024 3:08 AM EDT us Kaden Arana MD LAB POINT OF CARE TE ST DOCKED DEVICE UNSOLICITED RESULTS Final Result [facility] [address] [place] [address] * TYPE AND SCREEN (10/07/2024 4:27 AM EDT) ABO AB 10/07/2024 5:11 AM EDT LABORATORY [facility] BLOOD BANK Rh Positive 10/07/2024 5:11 AM EDT LABORATORY [facility] BLOOD BANK Red Blood Cell Antibody Screen Negative 10/07/2024 5:11 AM EDT LABORATORY [facility] BLOOD BANK Specimen Expiration Date 10/10/2024 23:59 10/07/2024 5:11 AM EDT LABORATORY [facility] BLOOD BANK Blood Venous blood specimen / Unknown Midline / Unknown 10/07/2024 4:27 AM EDT 10/07/2024 4:33 AM EDT us Rnoi Elder MD LAB BLOOD BANK TEST ORDERABLES Final Result Performing Organization Address City/[facility] Co de Phone Number LABORATORY [facility] BLOOD BANK [address] [place] [address] * MAGNESIUM (10/07/2024 4:15 AM EDT) Magnesium 2.3 1.5 - 2.6 mg/dL 10/07/2024 5:13 AM EDT LABORATORY [facility] Blood Venous blood specimen / Unknown Midline / Unknown 10/07/2024 4:15 AM EDT 10/07/2024 4:33 AM EDT us Marcell Garsia DO LAB BLOOD ORDERABLES Final Result LABORATORY [facility] [address] [place] [address] * (ABNORMAL) BASIC METABOLIC PANEL (10/07/2024 4:15 AM EDT) BUN 42(H) 6 - 20 mg/dL 10/07/2024 5:13 AM EDT LABORATORY [facility] CREATININE 8.1(H) 0.5 - 1.0 mg/dL 10/07/2024 5:13 AM EDT LABORATORY C EGFR 5(L) >=60 mL/min 10/07/2024 5:13 AM EDT LABORATORY [facility] Comment:eGFR is calculated b ased on the CKD-EPI 2020 equation. SODIUM 131(L) 135 - 146 mmol/L 10/07/2024 5:13 AM EDT LABORATORY [facility] POTASSIUM 4.7 3.5 - 5.1 mmol/L 10/07/2024 5:13 AM EDT LABORATORY [facility] CHLORIDE 91(L) 98 - 107 mmol/L 10/07/2024 5:13 AM EDT LABORATORY [facility] CO2 25 22 - 32 mmol/L 10/07/2024 5:13 AM EDT LABORATORY [facility] ANION GAP 15 7 - 15 mmol/L 10/07/2024 5:13 AM EDT LABORATORY [facility] GLUCOSE 149(H) 70 - 120 mg/dL 10/07/2024 5:13 AM EDT LABORATORY [facility] CALCIUM 8.8 8.4 - 10.2 mg/dL 10/07/2024 5:13 AM EDT LABORATORY C Blood Venous blood specimen / Unknown Midline / Unknown 10/07/2024 4:15 AM EDT 10/07/2024 4:33 AM EDT us Marcell Garsia DO LAB BLOOD ORDERABLES Final Result LABORATORY [facility] [address] [place] [address] * (ABNORMAL) PHOSPHORUS (10/07/2024 4:15 AM EDT) Phosphorus 5.9(H) 2.5 - 4.8 mg/dL 10/07/2024 5:13 AM EDT LABORATORY [facility] Blood Venous blood specimen / Unknown Midline / Unknown 10/07/2024 4:15 AM EDT 10/07/2024 4:33 AM EDT us Marcell Kendell Sun DO LAB BLOOD ORDERABLES Final Result LAB[facility]ATORY [facility] [address] [place] [address] * (ABNORMAL) CBC (10/07/2024 4:15 AM EDT) WBC 12.17(H) 4.00 - 10.80 K/uL 10/07/2024 4:46 AM EDT LABORATORY [facility] RBC 2.80 3.85 - 5.15 M/uL 10/07/2024 4:46 AM EDT LABORATORY [facility] HGB 8.4(L) 12.0 - 15.3 g/dL 10/07/2024 4:46 AM EDT LABORATORY [facility] HCT 27.9(L) 36.0 - 45.2 % 10/07/2024 4:46 AM EDT LABORATORY [facility] MCV 99.6 81.5 - 97.5 fL 10/07/2024 4:46 AM EDT LABORATORY [facility] MCH 30.0 27.0 - 34.0 pg 10/07/2024 4:46 AM EDT LABORATORY [facility] MCHC 30.1 32.0 - 36.0 g/dL 10/07/2024 4:46 AM EDT LABORATORY [facility] RDW 16.6 11.5 - 15.5 % 10/07/2024 4:46 AM EDT LABORATORY [facility] PLT 238 140 - 400 K/uL 10/07/2024 4:46 AM EDT LABORATORY [facility] MPV 10.2 6.6 - 11.1 fL 10/07/2024 4:46 AM EDT LABORATORY [facility] nRBCs 0 <=0 /100 WBCs 10/07/2024 4:46 AM EDT LABORATORY [facility] Blood Venous blood specimen / Unknown Midline / Unknown 10/07/2024 4:15 AM EDT 10/07/2024 4:33 AM EDT Marcell Garsia DO LAB BLOOD ORDERABLES Final Result LABORATORY [facility] [address] [place] [address] * (ABNORMAL) GLUCOSE METER, POINT OF CARE (10/06/2024 11:04 PM EDT) [facility] Glucose - POCT 289(H) 70 - 120 mg/dL 10/06/2024 11:07 PM EDT [facility] Blood Whole blood specimen / Unknown 10/06/2024 11:04 PM EDT 10/06/2024 11:07 PM EDT Honorio Alvarez DO LAB POINT OF CARE TE ST DOCKED DEVICE UNSOLICITED RESULTS Final Result Performing Organization Address [facility]/ZIP Co de Phone Number [facility] [address] [place] [address] * (ABNORMAL) GLUCOSE METER, POINT OF CARE (10/06/2024 6:28 PM EDT) [facility] Glucose - POCT 127(H) 70 - 120 mg/dL 10/06/2024 6:35 PM EDT [facility] Blood Whole blood specimen / Unknown 10/06/2024 6:28 PM EDT 10/06/2024 6:35 PM EDT Honorio Alvarez DO LAB POINT OF CARE TE ST DOCKED DEVICE UNSOLICITED RESULTS Final Result [facility] [address] [place] [address] * ACT, POINT OF CARE (10/06/2024 5:31 PM EDT) [facility] ACT 227 50 - 1,000 secs 10/07/2024 8:16 AM EDT [facility] Blood 10/06/2024 5:31 PM EDT 10/07/2024 8:16 AM EDT Narrative [facility] - 10/07/2024 8:16 AM EDT NORMAL (NON-HEPARINIZED) 74-137 SECONDS HEPARINIZED 200+ SECONDS CRITICAL GREATER THAN 1000 SECONDS Honorio Alvarez DO LAB POINT OF CARE TE ST DOCKED DEVICE UNSOLICITED RESULTS Final Result [facility] [address] [place] [address] * MAGNESIUM (10/06/2024 4:03 PM EDT) Pathologist [facility] Magnesium 2.2 1.5 - 2.6 mg/dL 10/06/2024 5:31 PM EDT LABORATORY C Blood Venous blood specimen / Unknown Venipuncture / Unknown 10/06/2024 4:03 PM EDT 10/06/2024 4:08 PM EDT Marcell Garsia DO LAB BLOOD ORDERABLES Final Result LABORATORY [facility] [address] [place] [address] * (ABNORMAL) BASIC METABOLIC PANEL (10/06/2024 4:03 PM EDT) BUN 38(H) 6 - 20 mg/dL 10/06/2024 5:31 PM EDT LABORATORY [facility] CREATININE 7.5(H) 0.5 - 1.0 mg/dL 10/06/2024 5:31 PM EDT LABORATORY [facility] EGFR 6(L) >=60 mL/min 10/06/2024 5:31 PM EDT LABORATORY [facility] Comment:eGFR is calculated b ased on the CKD-EPI 2020 equation. SODIUM 133(L) 135 - 146 mmol/L 10/06/2024 5:31 PM EDT LABORATORY [facility] POTASSIUM 4.9 3.5 - 5.1 mmol/L 10/06/2024 5:31 PM EDT LABORATORY [facility] CHLORIDE 91(L) 98 - 107 mmol/L 10/06/2024 5:31 PM EDT LABORATORY [facility] CO2 25 22 - 32 mmol/L 10/06/2024 5:31 PM EDT LABORATORY [facility] ANION GAP 17(H) 7 - 15 mmol/L 10/06/2024 5:31 PM EDT LABORATORY [facility] GLUCOSE 136(H) 70 - 120 mg/dL 10/06/2024 5:31 PM EDT LABORATORY [facility] CALCIUM 9.6 8.4 - 10.2 mg/dL 10/06/2024 5:31 PM EDT LABORATORY [facility] Blood Venous blood specimen / Unknown Venipuncture / Unknown 10/06/2024 4:03 PM EDT 10/06/2024 4:08 PM EDT us Marcell Garsia DO LAB BLOOD ORDERABLES Final Result LABORATORY [facility] [address] [place], [place] [id number] * ECHO, COMPLETE (2D), TRANS-THORACIC (10/06/2024 11:48 AM EDT) Pathologist [facility] LEFT VENTRICULAR EJECTION FRACTION 55 % [facility] 10/06/2024 10:5 5 AM EDT us Marcell Garsia DO ECHOCARDIOLOGY Final Result [facility] * (ABNORMAL) GLUCOSE METER, POINT OF CARE (10/06/2024 11:37 AM EDT) Glucose - POCT 139(H) 70 - 120 mg/dL 10/06/2024 11:48 AM EDT [email or web address] Blood Whole blood specimen / Unknown 10/06/2024 11:37 AM EDT 10/06/2024 11:48 AM EDT us Honorio Alvarez DO LAB POINT OF CARE TE ST DOCKED DEVICE UNSOLICITED RESULTS Final Result [facility] [address] [place] [address] * (ABNORMAL) GLUCOSE METER, POINT OF CARE (10/06/2024 6:36 AM EDT) Glucose - POCT 214(H) 70 - 120 mg/dL 10/06/2024 11:48 AM EDT [facility] Blood Whole blood specimen / Unknown 10/06/2024 6:36 AM EDT 10/06/2024 11:48 AM EDT Honorio Alvarez DO LAB POINT OF CARE TE ST DOCKED DEVICE UNSOLICITED RESULTS Final Result [facility] [address] [place] [address] * POTASSIUM, WHOLE BLOOD (10/06/2024 5:42 AM EDT) Potassium 4.7 3.5 - 5.1 mmol/L 10/06/2024 5:49 AM EDT LABORATORY [facility] Blood Venous blood specimen / Unknown Venipuncture / Unknown 10/06/2024 5:42 AM EDT 10/06/2024 5:46 AM EDT us Nathan Crouch DO LAB BLOOD ORDERABLES Final Re sult LABORATORY [facility] [address] [place] [address] * (ABNORMAL) PHOSPHORUS (10/06/2024 4:10 AM EDT) Phosphorus 6.2(H) 2.5 - 4.8 mg/dL 10/06/2024 4:59 AM EDT LABORATORY [facility] Blood Venous blood specimen / Unknown Venipuncture / Unknown 10/06/2024 4:10 AM EDT 10/06/2024 4:16 AM EDT us Marcell Garsia DO LAB BLOOD ORDERABLES Final Result LABORATORY [facility] [address] [place] [address] * (ABNORMAL) CBC (10/06/2024 4:10 AM EDT) WBC 9.59 4.00 - 10.80 K/uL 10/06/2024 4:36 AM EDT LABORATORY [facility] RBC 2.84 3.85 - 5.15 M/uL 10/06/2024 4:36 AM EDT LABORATORY [facility] HGB 8.6(L) 12.0 - 15.3 g/dL 10/06/2024 4:36 AM EDT LABORATORY [facility] HCT 28.4(L) 36.0 - 45.2 % 10/06/2024 4:36 AM EDT LABORATORY [facility] MCV 100.0 81.5 - 97.5 fL 10/06/2024 4:36 AM EDT LABORATORY [facility] MCH 30.3 27.0 - 34.0 pg 10/06/2024 4:36 AM EDT LABORATORY [facility] MCHC 30.3 32.0 - 36.0 g/dL 10/06/2024 4:36 AM EDT LABORATORY [facility] RDW 16.2 11.5 - 15.5 % 10/06/2024 4:36 AM EDT LABORATORY [facility] PLT 261 140 - 400 K/uL 10/06/2024 4:36 AM EDT LABORATORY [facility] MPV 10.1 6.6 - 11.1 fL 10/06/2024 4:36 AM EDT LABORATORY [facility] nRBCs 0 <=0 /100 WBCs 10/06/2024 4:36 AM EDT LABORATORY [facility] Blood Venous blood specimen / Unknown Venipuncture / Unknown 10/06/2024 4:10 AM EDT 10/06/2024 4:16 AM EDT us Marcell Garsia DO LAB BLOOD ORDERABLES Final Result LABORATORY [facility] [address] [place] [address] * MAGNESIUM (10/06/2024 4:10 AM EDT) Pathologist [facility] Magnesium 2.2 1.5 - 2.6 mg/dL 10/06/2024 4:59 AM EDT LABORATORY [facility] Blood Venous blood specimen / Unknown Venipuncture / Unknown 10/06/2024 4:10 AM EDT 10/06/2024 4:16 AM EDT us Marcell Garsia DO LAB BLOOD ORDERABLES Final Result LABORATORY [facility] [address] [place] [address] * (ABNORMAL) BASIC METABOLIC PANEL (10/06/2024 4:10 AM EDT) BUN 36(H) 6 - 20 mg/dL 10/06/2024 4:59 AM EDT LABORATORY [facility] CREATININE 6.6(H) 0.5 - 1.0 mg/dL 10/06/2024 4:59 AM EDT LABORATORY C EGFR 6(L) >=60 mL/min 10/06/2024 4:59 AM EDT LABORATORY C Comment:eGFR is calculated b ased on the CKD-EPI 2020 equation. SODIUM 130(L) 135 - 146 mmol/L 10/06/2024 4:59 AM EDT LABORATORY [facility] POTASSIUM 10/06/2024 4:59 AM EDT LABORATORY C Comment:Specimen too hemolyz ed. Reorder if needed. CHLORIDE 89(L) 98 - 107 mmol/L 10/06/2024 4:59 AM EDT LABORATORY [facility] CO2 27 22 - 32 mmol/L 10/06/2024 4:59 AM EDT LABORATORY [facility] ANION GAP 14 7 - 15 mmol/L 10/06/2024 4:59 AM EDT LABORATORY [facility] GLUCOSE 228(H) 70 - 120 mg/dL 10/06/2024 4:59 AM EDT LABORATORY [facility] CALCIUM 9.6 8.4 - 10.2 mg/dL 10/06/2024 4:59 AM EDT LABORATORY [facility] Blood Venous blood specimen / Unknown Venipuncture / Unknown 10/06/2024 4:10 AM EDT 10/06/2024 4:16 AM EDT Marcell Kendell Sun DO LAB BLOOD ORDERABLES Final Result Performing Organization Address [facility] Co de Phone Number LABORATORY [facility] [address] [place] [address] * PT INR (10/06/2024 4:10 AM EDT) Prothrombin Time 14.0 11.6 - 15.2 seconds 10/06/2024 4:41 AM EDT LABORATORY [facility] INR 1.1 0.8 - 1.2 10/06/2024 4:41 AM EDT LABORATORY [facility] Blood Venous blood specimen / Unknown Venipuncture / Unknown 10/06/2024 4:10 AM EDT 10/06/2024 4:16 AM EDT Narrative LABORATORY [facility] - 10/06/2024 4:41 AM EDT Warfarin Therapy INR: 2.0-3.0 conventional anticoagulation INR: 2.5-3.5 high intensity anticoagulation Honorio Alvarez DO LAB BLOOD ORDERABLES Final R esult Performing Organization Address [facility] Co de Phone Number LABORATORY [facility] [address] [place] [address] * CARDIAC CATHETERIZATION REPORT (10/06/2024) Pathologist [facility] DATE OF PROCEDURE 10/06/2024 [facility] DIAGNOSTIC Beto Leone DO [facility] INTERVENTIONAL Beto Leone DO [facility] CONCLUSIONS * Moderate single vessel non-obstructive CAD -prox LAD 50% stenosis --> FFR 0.83 (not hemodynamically significant thus PCI deferred) -luminal irregularities elsewhere * LVEDP 17 mmHg (mildly elevated) [facility] PROCEDURES Left Heart Cath + Coronary angiography Fractional Flow Sayre (FFR) 0:53-1:07 hours:minutes Sedation [facility] TOTAL CONTRAST VOLUME 65 ml [facility] TOTAL RADIATION 0.25 Gy [facility] COMPLICATIONS No complication None [facility] 10/06/2024 10/08/2024 9:1 8 AM EDT Honorio Alvarez DO CARD CATH Final Result [facility] * (ABNORMAL) GLUCOSE METER, POINT OF CARE (10/05/2024 10:00 PM EDT) [facility] Glucose - POCT 277(H) 70 - 120 mg/dL 10/05/2024 10:04 PM EDT [facility] Neotropix [facility] Blood Whole blood specimen / Unknown 10/05/2024 10:00 PM EDT 10/05/2024 10:04 PM EDT Honorio Alvarez DO LAB POINT OF CARE TE ST DOCKED DEVICE UNSOLICITED RESULTS Final Result Performing Organization Address [facility] Co de Phone Number [facility] [address] [place] [address] * EKG (10/05/2024 5:20 PM EDT) 10/05/2024 5:20 PM EDT Narrative Procedure Note Christo Chang MD - 10/05/2024 5:20 PM EDT REASON FOR STUDY: TACHY CONCLUSIONS: AV dual-paced rhythm Abnormal ECG When compared with ECG of 26-Dec-2023 16:07, Vent. rate has decreased by 17 bpm Ventricular Rate: 61 Atrial Rate: 60 AR Interval: 192 QRS Duration: 188 QT/QTc: 536/539 ms P-R-T Alma: 0 : 179 : 46 degrees Marcell Garsia DO EKG Final Result Performing Organization Address City/[facility]/ZIP Co de Phone Number [facility] * MAGNESIUM (10/05/2024 5:15 PM EDT) [facility] Magnesium 2.2 1.5 - 2.6 mg/dL 10/05/2024 6:25 PM EDT LABORATORY [facility] Blood Venous blood specimen / Unknown Venipuncture / Unknown 10/05/2024 5:15 PM EDT 10/05/2024 5:26 PM EDT us Marcell Garsia DO LAB BLOOD ORDERABLES Final Result Performing Organization Address City/[facility]/ZIP Co de Phone Number LABORATORY [facility] [address] [place] [address] * (ABNORMAL) BASIC METABOLIC PANEL (10/05/2024 5:15 PM EDT) Pathologist [facility] BUN 26(H) 6 - 20 mg/dL 10/05/2024 6:25 PM EDT LABORATORY [facility] CREATININE 6.1(H) 0.5 - 1.0 mg/dL 10/05/2024 6:25 PM EDT LABORATORY [facility] EGFR 7(L) >=60 mL/min 10/05/2024 6:25 PM EDT LABORATORY [facility] Comment:eGFR is calculated b ased on the CKD-EPI 2020 equation. SODIUM 134(L) 135 - 146 mmol/L 10/05/2024 6:25 PM EDT LABORATORY [facility] POTASSIUM 4.6 3.5 - 5.1 mmol/L 10/05/2024 6:25 PM EDT LABORATORY [facility] CHLORIDE 91(L) 98 - 107 mmol/L 10/05/2024 6:25 PM EDT LABORATORY [facility] CO2 28 22 - 32 mmol/L 10/05/2024 6:25 PM EDT LABORATORY [facility] ANION GAP 15 7 - 15 mmol/L 10/05/2024 6:25 PM EDT LABORATORY [facility] GLUCOSE 200(H) 70 - 120 mg/dL 10/05/2024 6:25 PM EDT LABORATORY C CALCIUM 9.9 8.4 - 10.2 mg/dL 10/05/2024 6:25 PM EDT LABORATORY C Blood Venous blood specimen / Unknown Venipuncture / Unknown 10/05/2024 5:15 PM EDT 10/05/2024 5:26 PM EDT us Marcell Garsia DO LAB BLOOD ORDERABLES Final Result Performing Organization Address City/[facility]/ZIP Co de Phone Number LABORATORY [facility] [address] [place] [address] * (ABNORMAL) GLUCOSE METER, POINT OF CARE (10/05/2024 5:13 PM EDT) Glucose - POCT 209(H) 70 - 120 mg/dL 10/05/2024 10:23 PM EDT [facility] Blood Whole blood specimen / Unknown 10/05/2024 5:13 PM EDT 10/05/2024 10:23 PM EDT us Honorio Alvarez DO LAB POINT OF CARE TE ST DOCKED DEVICE UNSOLICITED RESULTS Final Result [facility] [address] [place] [address] documented in this encounter Visit Diagnoses Diagnosis Marginal ulcer- Primary Gastrojejunal ulcer, unspecified as acute or chronic, without mention of hemorrhage, perforation, or obstruction ESRD (end stage renal disease) on dialysis ([facility]) End stage renal disease Hypertensive 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 congestive heart failure and stage 5 chronic kidney disease on chronic dialysis ([facility] [place]) Acute posthemorrhagic anemia Type 2 diabetes mellitus 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 dialysis, with long-term current use of insulin ([facility] [place]) Hypothyroidism (acquired) Unspecified hypothyroidism Malignant melanoma of right upper extremity ([facility]) Aortic atherosclerosis ([facility]) Atherosclerosis of aorta Diabetic polyneuropathy associated with type 2 diabetes mellitus ([facility] [place]) Advanced care planning/counseling discussion- Primary Other specified counseling Hypertensive 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 congestive heart failure and stage 5 chronic kidney disease on chronic dialysis (HCC) Presence of cardiac pacemaker Cardiac pacemaker in situ SSS (sick sinus syndrome) ([facility] [place]) Sinoatrial node dysfunction MINISTERIO on CPAP Obstructive sleep apnea (adult) (pediatric) Hypothyroidism (acquired) Unspecified hypothyroidism Type 2 diabetes mellitus 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 dialysis, with long-term current use of insulin ([facility] [place]) S/P gastric bypass Bariatric surgery status ESRD (end stage renal disease) on dialysis ([facility] [place]) End stage renal disease Recurrent ventral incisional hernia Incisional hernia without mention of obstruction or gangrene NO SHOW/FAILED TO KEEP APPOINTMENT- Primary Chronic diastolic heart failure (HCC)- Primary Chronic diastolic heart failure HTN, goal below 140/90 Unspecified essential hypertension Type 2 diabetes mellitus with hemoglobin A1c goal of less than 7.0% ([facility] [place]) Hypothyroidism (acquired) Unspecified hypothyroidism Dyslipidemia, goal LDL [...] sleep apnea (adult) (pediatric) Diarrhea, unspecified type Ventricular tachycardia, non-sustained (HCC)- Primary Paroxysmal ventricular tachycardia Polymorphic ventricular tachycardia (HCC) Paroxysmal ventricular tachycardia Chest pain Chest pain, unspecified Tachycardia Tachycardia, unspecified Cardiac arrhythmia, unspecified Status post cardiac pacemaker procedure Cardiac pacemaker in situ Other ventricular tachycardia ([facility] [place]) [I47.29] Encounter for checking and testing of cardiac pacemaker pulse generator (battery) Pleural effusion, not elsewhere classified Presence of automatic (implantable) cardiac defibrillator Emphysema, unspecified (HCC) Other nonspecific abnormal finding of lung field Hypoxemia HTN, goal below 140/90 Unspecified essential hypertension Valvular heart disease Endocarditis, valve unspecified, unspecified cause Heart failure, unspecified (HCC) Heart failure, unspecified Mitral regurgitation Mitral valve disorders Severe mitral regurgitation Mitral valve disorders Nonrheumatic mitral valve stenosis with insufficiency Ventricular tachycardia, non-sustained (HCC) Paroxysmal ventricular tachycardia Type 2 diabetes mellitus with hemoglobin A1c goal of less than 7.0% (HCC) Chronic diastolic heart failure (HCC) Chronic diastolic heart failure End stage renal disease on dialysis (HCC) End stage renal disease Arterial hypotension Hypotension, unspecified Anemia of renal disease Anemia in chronic kidney disease Mitral stenosis with insufficiency Hyperkalemia Hyperpotassemia Chronic hyponatremia Hyposmolality and/or hyponatremia Hyperphosphatemia Disorders of phosphorus metabolism Severe mitral regurgitation Mitral valve disorders History of colonic polyps Personal history of colonic polyps Diarrhea documented in this encounter Administered Medications Inactive Administered Medications - up to 3 most recent administrations Medication Order MAR Action Action Date Dose Rate Site Acetaminophen (Tylenol) tab 650 mg 650 mg, Oral, Q4H PRN Pain, Mild, Starting on Fri10/06/24 at 1403, Until Fri10/08/24 at 1030, Maximum of 4 grams (4000 mg) per day. Given 10/08/2024 6:14 AM EDT 650 mg Given 10/07/2024 7:06 PM EDT 650 mg Given 10/07/2024 11:32 AM EDT 650 mg Acetaminophen (Tylenol) tab 650 mg 650 mg, Oral, Q6H, First dose (after last modification) on Fri10/08/24 at 1200, Until Discontinued, Maximum of 4 grams (4000 mg) per day. Given 10/10/2024 5:54 AM EDT 650 mg Given 10/10/2024 12:22 AM EDT 650 mg Given 10/09/2024 5:47 PM EDT 650 mg Acetaminophen (Tylenol) tab 650 mg 650 mg, Oral, ONCE, On Fri10/10/24 at 1115, For 1 dose, Maximum of 4 grams (4000 mg) per day. Given 10/10/2024 10:53 AM EDT 650 mg Acetaminophen (Tylenol) tab 650 mg 650 mg, Oral, ONCE, On Fri10/10/24 at 2030, For 1 dose, Maximum of 4 grams (4000 mg) per day. Given 10/10/2024 8:21 PM EDT 650 mg Acetaminophen (Tylenol) tab 650 mg 650 mg, Oral, ONCE, On Fri10/11/24 at 1500, For 1 dose, Maximum of 4 grams (4000 mg) per day. Given 10/11/2024 3:07 PM EDT 650 mg Acetaminophen (Tylenol) tab 650 mg 650 mg, Oral, Q6H PRN Pain, Mild, Pain, Moderate, Starting on Fri10/12/24 at 1050, Until Fri10/14/24 at 1738, Maximum of 4 grams (4000 mg) per day. Given 10/12/2024 11:34 AM EDT 650 mg adenosine 24 mcg/ml infusion for intracoronary 240 mcg, Intracoronary, PRN, Starting on Fri10/06/24 at 1725, Until Fri10/06/24 at 1752, To be administered in Cardiac Rod Tape Operator intra-procedure only, Intra-Op New Bag 10/06/2024 5:23 PM EDT 240 mcg amiodarone (Cordarone) 900 mg in NSS 500 mL INFUSION Central IV, 0.5 mg/min (16.6667 mL/hr, rounded to 16.67 mL/hr), Amiodarone to be run using Smart pump mode: Pump is programmed to *ALERT* at 200 ml to notify of RATE change from 1mg/min to go to 0.5 mg/min. Use 0.22 micron filter., CONTINUOUS, Starting on Fri10/05/24 at 1700, Until Fri10/06/24 at 1544 Rate Verify 10/06/2024 9:00 AM EDT 0.5 mg/min 16.66 mL/hr Rate Verify 10/06/2024 8:58 AM EDT 0.5 mg/min 16.66 mL/hr Nurse Change 10/06/2024 7:22 AM EDT 0.5 mg/min 16.67 mL/hr amiodarone (Cordarone) 900 mg in NSS 500 mL INFUSION Peripheral IV, 0.5 mg/min (16.6667 mL/hr, rounded to 16.67 mL/hr), Amiodarone to be run using Smart pump mode: Pump is programmed to *ALERT* at 200 ml to notify of RATE change from 1mg/min to go to 0.5 mg/min. Use 0.22 micron filter., CONTINUOUS, Starting on Fri10/06/24 at 1745, Until Fri10/07/24 at 0346 Rate Verify 10/07/2024 3:00 AM EDT 0.5 mg/min 16.66 mL/hr Rate Verify 10/07/2024 2:00 AM EDT 0.5 mg/min 16.66 mL/hr Rate Verify 10/07/2024 1:00 AM EDT 0.5 mg/min 16.66 mL/hr amiodarone (Cordarone) tab 200 mg 200 mg, Oral, TID 06;12;18, First dose on Fri10/07/24 at 0600, Until Discontinued Given 10/07/2024 6:14 AM EDT 200 mg amiodarone (Cordarone) tab 200 mg 200 mg, Oral, WITH MEALS, First dose (after last modification) on Fri10/07/24 at 1200, Until Discontinued Given 10/07/2024 11:32 AM EDT 200 mg amLODIPine (Norvasc) tab 5 mg 5 mg, Oral, Daily(AM), First dose on Fri10/06/24 at 0900, Until Discontinued Given 10/06/2024 8:50 AM EDT 5 mg aspirin chew tab 81 mg 81 mg, Oral, HS, First dose on Fri10/05/24 at 2200, Until Discontinued Given 10/13/2024 9:32 PM EDT 81 mg Given 10/12/2024 8:56 PM EDT 81 mg Given 10/11/2024 9:04 PM EDT 81 mg atorvaSTATin (Lipitor) tab 40 mg 40 mg, Oral, Q1700, First dose on Fri10/05/24 at 1730, Until Discontinued Given 10/13/2024 4:47 PM EDT 40 mg Given 10/12/2024 5:43 PM EDT 40 mg Given 10/11/2024 6:08 PM EDT 40 mg calcium acetate (Phos Binder) (Phoslo) cap/tab 2,001 mg 2,001 mg, Oral, WITH MEALS, First dose on Fri10/05/24 at 1800, Until Discontinued Given 10/10/2024 4:53 PM EDT 2,00 1 mg Given 10/10/2024 12:53 PM EDT 2,001 mg Given 10/10/2024 8:26 AM EDT 2,001 mg calcium acetate (Phos Binder) (Phoslo) cap/tab 2,001 mg 2,001 mg, Oral, WITH MEALS, First dose (after last modification) on Fri10/11/24 at 1200, Until Discontinued Given 10/14/2024 11:50 AM EDT 2,001 mg Given 10/13/2024 4:47 PM EDT 2,001 mg Given 10/13/2024 1:52 PM EDT 2,001 mg Carvedilol (Coreg) tab 12.5 mg 12.5 mg, Oral, BID (.AM/PM), First dose on Fri10/05/24 at 2100, Until Discontinued, Hold for HR less than 60 or SBP below 100 and notify service if dose is held MUST BE GIVEN WITH MEAL Given 10/06/2024 8:37 PM EDT 12.5 mg Given 10/06/2024 8:50 AM EDT 12.5 mg Given 10/05/2024 9:56 PM EDT 12.5 mg Carvedilol (Coreg) tab 3.125 mg 3.125 mg, Oral, BID (AM/PM MEALS), First dose on Fri10/10/24 at 1700, Until Discontinued, Hold for HR less than 60 or SBP below 100 and notify service if dose is held MUST BE GIVEN WITH MEAL Given 10/11/2024 9:03 PM EDT 3.125 mg Given 10/11/2024 12:46 PM EDT 3.125 mg Given 10/10/2024 4:52 PM EDT 3.125 mg Carvedilol (Coreg) tab 3.125 mg 3.125 mg, Oral, ONCE, On Fri10/10/24 at 1130, For 1 dose, Hold for HR less than 60 or SBP below 100 and notify service if dose is held MUST BE GIVEN WITH MEAL Given 10/10/2024 12:55 PM EDT 3.125 mg ceFAZolin in dextrose (Ancef) ivpb 2 g 2 g, IV Piggyback, ONCE, 1 dose, On Fri10/06/24 at 1745, To be administered for antimicrobial prophylaxis in Electrophysiology Lab pre procedure, Intra-Op New Bag 10/06/2024 5:11 PM EDT 2 g 100 mL/hr ceFAZolin in dextrose (Ancef) ivpb 2 g 2 g, IV Piggyback, ONCE, 1 dose, On Fri10/07/24 at 1445, To be administered for antimicrobial prophylaxis in Electrophysiology Lab intra procedure, Intra-Op New Bag 10/07/2024 2:45 PM EDT 2 g 100 mL/hr citalopram (CeleXA) tab 20 mg 20 mg, Oral, Daily(AM), First dose on Fri10/06/24 at 0900, Until Discontinued Given 10/14/2024 9:00 AM EDT 20 mg Given 10/13/2024 1:52 PM EDT 20 mg Given 10/12/2024 9:06 AM EDT 20 mg dextrose 50% inj 25 mL 25 mL, IV Push, PRN Hypoglycemia, Other, For blood glucose 54 - 69 mg/dL or 70 - 100 mg/dL with symptoms AND patient is unresponsive, NPO, OR unable to swallow, Starting on Fri10/05/24 at 1659, Until Fri10/14/24 at 1738, Administer IV. Recheck blood glucose after 15 minutes. Notify provider. Given 10/11/2024 10:15 AM EDT 25 mL dextrose 50% inj 50 mL 50 mL, IV Push, PRN Hypoglycemia, Other, For blood glucose below 54 mg/dL AND patient unresponsive, NPO, OR unable to swallow, Starting on Fri10/05/24 at 1659, Until [place] 10/14/24 at 1738, Administer IV. Recheck blood glucose in 15 minutes. Notify provider. diphenhydrAMINE (Benadryl) inj 25 mg 25 mg, Intravenous, PRN Other, sedation, Starting on [place] 10/07/24 at 1505, Until [facility] 10/07/24 at 1541, For 2 doses, Intra-Op Given 10/07/2024 3:41 PM EDT 25 mg Given 10/07/2024 3:05 PM EDT 25 mg epoetin janice-epbx ESRD (Retacrit) 26043 UNIT/ML inj 8,000 Units 8,000 Units, IV Push, ON DIALYSIS, Starting on [place] 10/07/24 at 0000, Until [place] 10/14/24 at 1738, will call order clerk for dialysis, to be given ONLY on dialysis Given 10/13/2024 10:27 AM E DT 8,000 Units Given 10/11/2024 11:45 AM EDT 8,000 Units Given 10/08/2024 5:25 PM EDT 8,000 Units fentaNYL (PF) inj 25 mcg 25 mcg, IV Push, PRN Pain, Moderate, Pain, Severe, Starting on [place] 10/07/24 at 1500, Until [place] 10/07/24 at 1621, For 4 hours, To be administered in EP Lab intra-procedure only. When given IV Push its recommended that the dose be given over 3 to 5 minutes., Intra-Op Given 10/07/2024 3:39 PM EDT 25 mcg Given 10/07/2024 3:10 PM EDT 25 mcg Given 10/07/2024 3:04 PM EDT 25 mcg fentaNYL (PF) inj 50 mcg 50 mcg, IV Push, PRN Pain, Severe, Starting on 10/06/24 at 1637, Until Fri10/06/24 at 1752, For 2 hours, To be administered in Cardiac Rod Tape Operator intra-procedure only When given IV Push its recommended that the dose be given over 3 to 5 minutes., Intra-Op Given 10/06/2024 5:30 PM EDT 50 m cg Given 10/06/2024 5:00 PM EDT 50 mcg Given 10/06/2024 4:47 PM EDT 50 mcg Furosemide (Lasix) inj 200 mg 200 mg, IV Push, ONCE, On 10/09/24 at 0845, For 1 dose Given 10/09/2024 9:03 AM EDT 200 mg Gabapentin (Neurontin) cap 300 mg 300 mg, Oral, QHS, First dose (after last modification) on Fri10/06/24 at 0030, Until Discontinued Given 10/13/2024 9:32 PM EDT 300 mg Given 10/12/2024 8:56 PM EDT 300 mg Given 10/11/2024 9:03 PM EDT 300 mg glucagon (Glucagen) inj 1 mg 1 mg, Intramuscular, PRN Hypoglycemia, Other, If patient is unresponsive, or NPO and has no IV access, Starting on Fri10/05/24 at 1659, Until [place] 10/14/24 at 1738, NPO and no IV access with either 1) blood glucose less than 100 mg/dL and symptomatic OR 2) blood glucose less than 70 mg/dL and asymptomatic Glucose (Glutose 15) 40 % gel 15 g of glucose 15 g of glucose, Oral, PRN Hypoglycemia (low sugar), Other, For blood glucose 54 - 69 mg/dL or 70 - 100 mg/dL with symptoms AND patient alert WITH difficulty chewing/swallowing, Starting on Fri10/05/24 at 1659, Until [place] 10/14/24 at 1738, Administer gel. Recheck blood glucose after 15 minutes. Notify provider. 37.5 gram tube = 15 grams glucose = 1 each Glucose (Glutose 15) 40 % gel 30 g of glucose 30 g of glucose, Oral, PRN Hypoglycemia (low sugar), Other, For blood glucose below 54 mg/dL AND patient alert WITH difficulty chewing/swallowing, Starting on Fri10/05/24 at 1659, Until [place] 10/14/24 at 1738, Administer gel. Recheck blood glucose after 15 minutes. Notify provider. 37.5 gram tube = 15 grams glucose = 1 each glucose chew tab 16 g 16 g, Oral, PRN Hypoglycemia, Other, For blood glucose 54 - 69 mg/dL or 70 - 100 mg/dL with symptoms and patient alert without difficulty chewing/swallowing., Starting on Fri10/05/24 at 1659, Until [place] 10/14/24 at 1738 hEParin inj 5,000 Units 5,000 Units, IV Push, PRN Other, Anticoagulation not at goal, Starting on Fri10/06/24 at 1637, Until Fri10/06/24 at 1752, For 2 hours, To be administered in Cardiac Rod Tape Operator intra-procedure., Intra-Op Given 10/06/2024 5:21 PM EDT 7,000 Units hEParin inj 5,000 Units 5,000 Units, Subcutaneous, Q8H, First dose on 10/09/24 at 1415, Until Discontinued Given 10/10/2024 12:56 PM EDT 5,000 Units Abdomen Left Lower Given 10/10/2024 5:54 AM EDT 5,000 Units A bdomen Right Lower Given 10/09/2024 9:44 PM EDT 5,000 Units A bdomen Left Lower hEParin inj 7,500 Units 7,500 Units, Subcutaneous, Q8H, First dose on Fri10/05/24 at 2200, Until Discontinued Given 10/06/2024 2:34 PM EDT 7,500 Units Abdomen Right Lower Given 10/06/2024 5:35 AM EDT 7,500 Units A bdomen Right Upper Given 10/05/2024 9:56 PM EDT 7,500 Units A bdomen Left Lower hEParin inj 7,500 Units 7,500 Units, Subcutaneous, Q8H, First dose (after last modification) on Fri10/10/24 at 2200, Until Discontinued Given 10/14/2024 5:07 AM EDT 7,500 Units Abdomen Left Upper Given 10/13/2024 9:32 PM EDT 7,500 Units A bdomen Right Lower Given 10/13/2024 1:52 PM EDT 7,500 Units A bdomen Left Lower insulin aspart (NovoLOG) inj 2 Units 2 Units, Subcutaneous, ONCE, 1 dose, On Fri10/12/24 at 2315 Given 10/12/2024 11:15 PM EDT 2 Units Arm Left Upper insulin aspart (NovoLOG) inj 8 Units 8 Units, Subcutaneous, ONCE, 1 dose, On Fri10/11/24 at 2330 Given 10/11/2024 10:54 PM EDT 8 Units Arm Left Upper insulin aspart (NovoLOG) inj Subcutaneous, WITH MEALS, First dose (after last modification) on Fri10/05/24 at 1745, Until Discontinued, MEDIUM DOSE (Usual starting dose): Sliding Scale Correctional insulin may be given if the patient is NPO. Dose based on standard build from Insulin Calculator. Do not modify insulin doses in administration instructions!, Glucose less than 70 instructions: Obtain STAT lab blood glucose and call covering provider., Glucose 80-150 (units): 0, Glucose 151-200 (units): 2, Glucose 201-250 (units): 4, Glucose 251-300 (units): 6, Glucose greater than 300 (units): 8, Glucose greater than 300 instructions: Give suggested insulin dose and call covering provider. Given 10/05/2024 5:57 PM EDT 4 Units Arm Left Upper insulin aspart (NovoLOG) inj Subcutaneous, Q6H, First dose (after last modification) on Fri10/06/24 at 0645, Until Discontinued, MEDIUM DOSE (Usual starting dose): Sliding Scale Correctional insulin may be given if the patient is NPO. Dose based on standard build from Insulin Calculator. Do not modify insulin doses in administration instructions!, Glucose less than 70 instructions: Obtain STAT lab blood glucose and call covering provider., Glucose 80-150 (units): 0, Glucose 151-200 (units): 2, Glucose 201-250 (units): 4, Glucose 251-300 (units): 6, Glucose greater than 300 (units): 8, Glucose greater than 300 instructions: Give suggested insulin dose and call covering provider. Given 10/06/2024 11:07 PM EDT 6 Units Arm Left Upper Given 10/06/2024 6:40 AM EDT 4 Units Ar m Left Upper insulin aspart (NovoLOG) inj Subcutaneous, W/MEALS AND HS, First dose (after last modification) on Fri10/07/24 at 2230, Until Discontinued, MEDIUM DOSE (Usual starting dose): Sliding Scale Correctional insulin may be given if the patient is NPO. Dose based on standard build from Insulin Calculator. Do not modify insulin doses in administration instructions!, Glucose less than 70 instructions: Obtain STAT lab blood glucose and call covering provider., Glucose 80-150 (units): 0, Glucose 151-200 (units): 2, Glucose 201-250 (units): 4, Glucose 251-300 (units): 6, Glucose greater than 300 (units): 8, Glucose greater than 300 instructions: Give suggested insulin dose and call covering provider. Given 10/14/2024 11:58 AM EDT 6 Units Arm Left Upper Given 10/14/2024 9:21 AM EDT 2 Units Ab domen Left Upper Given 10/13/2024 5:52 PM EDT 4 Units Ar m Right Upper insulin aspart (NovoLOG) inj Subcutaneous, WITH MEALS, First dose on Fri10/13/24 at 0800, Until Discontinued, Dose equals 1 unit of insulin per 10 grams of carbohydrate consumed. Hold dose if patient does not eat Given 10/14/2024 1:03 PM EDT 5 Units Arm Left Upper Given 10/13/2024 5:52 PM EDT 7 Units Ar m Right Upper Given 10/13/2024 1:59 PM EDT 6 Units Ar m Left Upper Insulin Glargine (Lantus) inj 10 Units 10 Units, Subcutaneous, AMINSULIN, First dose (after last modification) on Fri10/11/24 at 0900, Until Discontinued, "IF DOSE IS HELD- NOTIFY COVERING PROVIDER!" Given 10/14/2024 9:20 AM EDT 10 Units Arm L eft Upper Given 10/13/2024 1:51 PM EDT 10 Units Ar m Left Upper Insulin Glargine (Lantus) inj 5 Units 5 Units, Subcutaneous, AMINSULIN, First dose on Fri10/06/24 at 0900, Until Discontinued, "IF DOSE IS HELD- NOTIFY COVERING PROVIDER!" Given 10/10/2024 8:27 AM EDT 5 Units Arm Left Upper Given 10/09/2024 9:22 AM EDT 5 Units Ar m Left Upper Given 10/08/2024 9:00 AM EDT 5 Units Ar m Left Upper Iopamidol (Isovue 370) inj 65 mL 65 mL, Intracoronary, ONCE, On Fri10/06/24 at 1830, For 1 dose, Intra-Op Given 10/06/2024 5:46 PM EDT 65 mL Iopamidol (Isovue 370) inj 80 mL 80 mL, Intravenous, ONCE, On Fri10/14/24 at 0900, For 1 dose, Radiology Medication Routing (Non-IR) Given 10/14/2024 9:00 AM EDT 80 mL Iopamidol (Isovue M 200) inj 10 mL 10 mL, Injection, ONCE, On Fri10/07/24 at 1545, For 1 dose, Intra-Op Given 10/07/2024 2:58 PM EDT 10 mL isolyte 250 mL bolus infusion Intravenous, Administer entire volume within 60 minutes or less. Plasma-LYTE 148, isolyte-S, and isolyte-S pH 7.4 are considered equivalent - including for MAR barcode scanning., ONCE, 1 dose, On Fri10/07/24 at 0815 New Bag 10/07/2024 8:18 AM EDT 250 mL 500 mL/h r levothyroxine (Levoxyl) tab 100 mcg 100 mcg, Oral, [id number], First dose on Fri10/07/24 at 0630, Until Discontinued Given 10/14/2024 5:07 AM EDT 100 mcg Given 10/13/2024 5:29 AM EDT 100 mcg Given 10/12/2024 5:41 AM EDT 100 mcg Lidocaine (Aspercreme) 4 % patch 1 Patch 1 Patch, Transdermal, Daily(AM), First dose on Fri10/08/24 at 1100, Until Discontinued, Apply patch for 12 hours then remove for 12 hours! Remove any Lidocaine patches the patient may currently be wearing prior to applying the new patch Patch Applied 10/14/2024 9:01 AM EDT 1 Patch Arm Left Upper Patch Applied 10/13/2024 1:52 PM EDT 1 Patch Chest Left Patch Applied 10/12/2024 9:07 AM EDT 1 Patch Shoulder Left midazolam (Versed) 2 MG/2ML inj 1 mg 1 mg, IV Push, PRN Anxiety, Starting on Fri10/06/24 at 1637, Until Fri10/06/24 at 1752, For 2 hours, To be administered in Cardiac Rod Tape Operator intra-procedure only, Intra-Op Given 10/06/2024 5:00 PM EDT 1 mg Given 10/06/2024 4:47 PM EDT 1 mg midazolam (Versed) 2 MG/2ML inj 1 mg 1 mg, IV Push, PRN Other, Inadequate sedation, Starting on Fri10/07/24 at 1500, Until Fri10/07/24 at 1621, For 4 hours, To be administered in EP Lab intra-procedure only., Intra-Op Given 10/07/2024 3:39 PM EDT 1 mg Given 10/07/2024 3:10 PM EDT 1 mg Given 10/07/2024 3:04 PM EDT 1 mg midodrine (Proamatine) tab 5 mg 5 mg, Oral, DAILY PRN Other, 30 minutes prior to dialysis. Okay for 2nd dose shelter through dialysis if needed., Starting on 10/10/24 at 1448, Until Fri10/14/24 at 1738 Given 10/11/2024 7:12 AM EDT 5 mg midodrine (Proamatine) tab 5 mg 5 mg, Oral, ON DIALYSIS, Starting on Fri10/13/24 at 0000, Until Fri10/13/24 at 0637, For 1 dose, Midodrine 5 mg 30 mins prior to dialysis and another 5 mg shelter through dialysis if SBP<100/60 Given 10/13/2024 6:37 AM EDT 5 mg oxyCODONE (Oxy IR) tab 5 mg 5 mg, Oral, ONCE, On Fri10/08/24 at 2100, For 1 dose Given 10/08/2024 8:34 PM EDT 5 mg oxyCODONE (Oxy IR) tab 5 mg 5 mg, Oral, Q6H PRN Pain, Moderate, Pain, Severe, Starting on 10/09/24 at 2139, Until 10/11/24 at 1050 Given 10/09/2024 9:43 PM EDT 5 mg oxyCODONE (Roxicodone) oral syrup 2.5 mg 2.5 mg, Oral, ONCE, On Fri10/08/24 at 1115, For 1 dose Given 10/08/2024 10:39 AM EDT 2.5 mg Polyethylene Glycol 3350 (Miralax) oral powder 17 g 17 g (1 Packet), Oral, Daily(AM), First dose on Fri10/06/24 at 1200, Until Discontinued, Mix in 8 oz of water, juice, soda, coffee, or tea. renal vitamin cap 1 mg 1 mg (1 Capsule), Oral, Daily(AM), First dose on Fri10/14/24 at 0900, Until Discontinued Given 10/14/2024 9:00 AM EDT 1 mg documented in this encounter Active and Recently Administered Medications Times are shown in EDT. Scheduled Medication Order 10/12/2024 10/13/2024 10/14/2024 aspirin chew tab 81 mg 81 mg, Oral, HS, First dose on Fri10/05/24 at 2200, Until Discontinued 2055 (Given - Provider: Keisha Luz, JOHN) 213 (Given - Provider: SN Shaw[place]) atorvaSTATin (Lipitor) tab 40 mg 40 mg, Oral, Q1700, First dose on Fri10/05/24 at 1730, Until Discontinued 174 (Given - Provider: Lalito Castaneda RN) 1647 (Given - Provider: SN [place]) calcium acetate (Phos Binder) (Phoslo) cap/tab 2,001 mg(Linked Group 1) 2,001 mg, Oral, WITH MEALS, First dose (after last modification) on Fri10/11/24 at 1200, Until Discontinued 0800 (Not Given - Provider: Lalito Castaneda RN - Reason: NPO)1200 (Not Given - Provider: Lalito Castaneda RN - Reason: NPO)1743 (Given - Provider: Lalito Castaneda RN) 0800 (Not Given - Provider: CODI Figueroa - Reason: Parameter(s) Not Met)1352 (Given - Provider: CODI Figueroa)1647 (Given - Provider: SN [place]) 0800 (Not Given - Provider: Kenan Claros RN - Reason: Parameter(s) Not Met)1150 (Given - Provider: Kenan Claros RN) citalopram (CeleXA) tab 20 mg 20 mg, Oral, Daily(AM), First dose on Fri10/06/24 at 0900, Until Discontinued 09 (Given - Provider: Lalito Castaneda RN) 1352 (Given - Provider: CODI Figueroa) 0900 (Given - Provider: Kenan Claros RN) epoetin janice-epbx ESRD (Retacrit) 43890 UNIT/ML inj 8,000 Units 8,000 Units, IV Push, ON DIALYSIS, Starting on Fri10/07/24 at 0000, Until Fri10/14/24 at 1738, will call order clerk for dialysis, to be given ONLY on dialysis 1027 (Given - Provider: Sumi Kressler, FRUIT GRADER) Gabapentin (Neurontin) cap 300 mg 300 mg, Oral, QHS, First dose (after last modification) on Fri10/06/24 at 0030, Until Discontinued 2055 (Given - Provider: Keisha Luz RN) 2131 (Given - Provider: SN [place]) hEParin inj 7,500 Units 7,500 Units, Subcutaneous, Q8H, First dose (after last modification) on Fri10/10/24 at 2200, Until Discontinued 05 (Given - Provider: Emely Golden, JOHN)1400 (OR/Procedure - Provider: Lalito Castaneda RN)2055 (Given - Provider: Keisha Luz RN) 0529 (Given - Provider: Keisha Luz RN)135 (Given - Provider: CODI Figueroa)2131 (Given - Provider: SN [place]) 0507 (Given - Provider: Keisha Luz RN) insulin aspart (NovoLOG) inj 2 Units (COMPLETED) 2 Units, Subcutaneous, ONCE, 1 dose, On Fri10/12/24 at 2315 2315 (Given - Provider: Keisha Luz RN) insulin aspart (NovoLOG) inj Subcutaneous, W/MEALS AND HS, First dose (after last modification) on Fri10/07/24 at 2230, Until Discontinued, MEDIUM DOSE (Usual starting dose): Sliding Scale Correctional insulin may be given if the patient is NPO. Dose based on standard build from Insulin Calculator. Do not modify insulin doses in administration instructions!, Glucose less than 70 instructions: Obtain STAT lab blood glucose and call covering provider., Glucose 80-150 (units): 0, Glucose 151-200 (units): 2, Glucose 201-250 (units): 4, Glucose 251-300 (units): 6, Glucose greater than 300 (units): 8, Glucose greater than 300 instructions: Give suggested insulin dose and call covering provider. 0800 (Not Given - Provider: Lalito Castaneda RN - Reason: Parameter(s) Not Met)1214 (Given - Provider: Lalito Castaneda RN)1700 (No Insulin - Provider: Lalito Castaneda RN - Reason: Parameter(s) Not Met)2200 (Given - Provider: Keisha Luz RN) 0800 (No Insulin - Provider: CODI Figueroa - Reason: Parameter(s) Not Met)1200 (No Insulin - Provider: CODI Figueroa - Reason: Parameter(s) Not Met)1752 (Given - Provider: CODI Figueroa)2200 (Not Given - Provider: Keisha Luz RN - Reason: Parameter(s) Not Met) 0921 (Given - Provider: Kenan Claros RN)1158 (Given - Provider: Kenan Claros RN) insulin aspart (NovoLOG) inj Subcutaneous, WITH MEALS, First dose on Fri10/13/24 at 0800, Until Discontinued, Dose equals 1 unit of insulin per 10 grams of carbohydrate consumed. Hold dose if patient does not eat 0800 (Not Given - Provider: CODI Figueroa - Reason: Parameter(s) Not Met)1359 (Given - Provider: CODI Figueroa)1752 (Given - Provider: CODI Figueroa) 0800 (Not Given - Provider: Kenan Claros RN - Reason: NPO)1303 (Given - Provider: Kenan Claros RN) Insulin Glargine (Lantus) inj 10 Units 10 Units, Subcutaneous, AMINSULIN, First dose (after last modification) on Fri10/11/24 at 0900, Until Discontinued, "IF DOSE IS HELD- NOTIFY COVERING PROVIDER!" 0900 (Not Given - Provider: Lalito Castaneda RN - Reason: NPO) 1351 (Given - Provider: CODI Figueroa) 0920 (Given - Provider: Kenan Claros RN) Iopamidol (Isovue 370) inj 80 mL (COMPLETED) 80 mL, Intravenous, ONCE, On Fri10/14/24 at 0900, For 1 dose, Radiology Medication Routing (Non-IR) 0900 (Given - Provider: Nancie Marie, RT (R)) levothyroxine (Levoxyl) tab 100 mcg 100 mcg, Oral, [id number], First dose on Fri10/07/24 at 0630, Until Discontinued 0541 (Given - Provider: Emely Golden, JOHN) 0529 (Given - Provider: Keisha Luz, JOHN) 0507 (Given - Provider: Keisha Luz, JOHN) Lidocaine (Aspercreme) 4 % patch 1 Patch 1 Patch, Transdermal, Daily(AM), First dose on Fri10/08/24 at 1100, Until Discontinued, Apply patch for 12 hours then remove for 12 hours! Remove any Lidocaine patches the patient may currently be wearing prior to applying the new patch 0045 (Patch Removed - Provider: Emely Golden, JOHN)0907 (Patch Applied - Provider: Lalito Castaneda, JOHN)2107 (Patch Removed - Provider: Keisha Luz, JOHN) 1352 (Patch Applied - Provider: CODI Figueroa) 0152 (Patch Removed - Provider: Keisha Luz, JOHN)0901 (Patch Applied - Provider: Kenan Claros RN)1338 (Due: Patch Removed - Provider: Automated, Discontinue Physician - Comment: Time automatically adjusted from order being discontinued) midodrine (Proamatine) tab 5 mg (COMPLETED) 5 mg, Oral, ON DIALYSIS, Starting on Fri10/13/24 at 0000, Until Fri10/13/24 at 0637, For 1 dose, Midodrine 5 mg 30 mins prior to dialysis and another 5 mg shelter through dialysis if SBP<100/60 0637 (Given - Provider: Keisha Luz, JOHN) Polyethylene Glycol 3350 (Miralax) oral powder 17 g 17 g (1 Packet), Oral, Daily(AM), First dose on Fri10/06/24 at 1200, Until Discontinued, Mix in 8 oz of water, juice, soda, coffee, or tea. 0900 (Not Given - Provider: Lalito Castaneda RN - Reason: NPO) 1200 (Not Given - Provider: CODI Figueroa - Reason: Refused-Notify Provider) 0900 (Not Given - Provider: Kenan Claros RN - Reason: Refused-Notify Provider) renal vitamin cap 1 mg 1 mg (1 Capsule), Oral, Daily(AM), First dose on Fri10/14/24 at 0900, Until Discontinued 0900 (Given - Provider: Kenna Claros RN) PRN Medication Order 10/12/2024 10/13/2024 10/14/2024 Acetaminophen (Tylenol) tab 650 mg 650 mg, Oral, Q6H PRN Pain, Mild, Pain, Moderate, Starting on Fri10/12/24 at 1050, Until Evangelina 10/14/24 at 1738, Maximum of 4 grams (4000 mg) per day. 1134 (Given - Provider: Lalito Castaneda, JOHN) dextrose 50% inj 25 mL 25 mL, IV Push, PRN Hypoglycemia, Other, For blood glucose 54 - 69 mg/dL or 70 - 100 mg/dL with symptoms AND patient is unresponsive, NPO, OR unable to swallow, Starting on Fri10/05/24 at 1659, Until Evangelina 10/14/24 at 1738, Administer IV. Recheck blood glucose after 15 minutes. Notify provider. dextrose 50% inj 50 mL 50 mL, IV Push, PRN Hypoglycemia, Other, For blood glucose below 54 mg/dL AND patient unresponsive, NPO, OR unable to swallow, Starting on Fri10/05/24 at 1659, Until Evangelina 10/14/24 at 1738, Administer IV. Recheck blood glucose in 15 minutes. Notify provider. glucagon (Glucagen) inj 1 mg 1 mg, Intramuscular, PRN Hypoglycemia, Other, If patient is unresponsive, or NPO and has no IV access, Starting on Fri10/05/24 at 1659, Until Evangelina 10/14/24 at 1738, NPO and no IV access with either 1) blood glucose less than 100 mg/dL and symptomatic OR 2) blood glucose less than 70 mg/dL and asymptomatic Glucose (Glutose 15) 40 % gel 15 g of glucose 15 g of glucose, Oral, PRN Hypoglycemia (low sugar), Other, For blood glucose 54 - 69 mg/dL or 70 - 100 mg/dL with symptoms AND patient alert WITH difficulty chewing/swallowing, Starting on Fri10/05/24 at 1659, Until Evangelina 10/14/24 at 1738, Administer gel. Recheck blood glucose after 15 minutes. Notify provider. 37.5 gram tube = 15 grams glucose = 1 each Glucose (Glutose 15) 40 % gel 30 g of glucose 30 g of glucose, Oral, PRN Hypoglycemia (low sugar), Other, For blood glucose below 54 mg/dL AND patient alert WITH difficulty chewing/swallowing, Starting on Fri10/05/24 at 1659, Until Evangelina 10/14/24 at 1738, Administer gel. Recheck blood glucose after 15 minutes. Notify provider. 37.5 gram tube = 15 grams glucose = 1 each glucose chew tab 16 g 16 g, Oral, PRN Hypoglycemia, Other, For blood glucose 54 - 69 mg/dL or 70 - 100 mg/dL with symptoms and patient alert without difficulty chewing/swallowing., Starting on Fri10/05/24 at 1659, Until Evangelina 10/14/24 at 1738 midodrine (Proamatine) tab 5 mg 5 mg, Oral, DAILY PRN Other, 30 minutes prior to dialysis. Okay for 2nd dose shelter through dialysis if needed., Starting on Fri10/10/24 at 1448, Until Evangelina 10/14/24 at 1738 Linked Groups Order Group 1: calcium acetate (Phos Binder) (Phoslo) cap/tab 2,001 mgJump to med 2,001 mg, Oral, WITH MEALS, First dose (after last modification) on Fri10/11/24 at 1200, Until Discontinued And calcium acetate (Phos Binder) (Phoslo) cap/tab 1,334 mg (CANCELED) 1,334 mg, Oral, WITH SNACKS, First dose on Fri10/11/24 at 1500, Until Discontinued documented in this encounter Additional Health Concerns Infection Onset Date Last Indicated Resolved Time Enterovirus (resp)/Rhinoviru s Comment:Per Dr. 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
--- OUTSIDE RECORDS SUMMARY | 2024-11-04 03:14 | External Medical Summary | Summary of Care ---
Author Name Unknown Organization [facility] Address [address] [place] [address] Phone [phone] Care Team Providers Care Traffic Control Officer Name Role Phone Luis Fernando Rojas MD Primary Care Provider [phone] Encounter Details Date Type Department Care Team (Late st Contact Info) Description 10/15/2024 Documentation [facility], [place] [facility] [address] [place] [address] Bernarda Weeks RN [address] [place] [address] Allergies Active Allergy Reactions Criticality Noted Date [...] less than 7.0% ([facility]) Use 4 times daily with insulin [...] Patient not taking.Informant: Patient, Reported on 10/05/2024 [email or web address] In Vitro Strip (Glucose Blood) To test blood sugar 4 times daily. 400 Strip 1 04/22/2024 6:47 AM EDT 4 Active [facility] Delica Lancets 33G To test blood sugar [...] (30 minutes before dialysis and another 5mg snf through dialysis if needed). 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 10/15/2022 [facility] OTHER*[id number] 01/01/2022 S/P gastric bypass 01/01/2022 [address] [...] T-tube placement 04/16/2017 05/29/2017 [facility] Other*[id number] 04/13/2013 08/27/2016 Overview (04/13/2013): Study Title: Genomic Markers for Patients with Cardiovascular Disease Project # [id number] Supervisor Roving: Siena Laws MD [phone] Hypertensive heart disease 03/25/2013 1 07/29/2016 Neuropathy, [...] yrs 09/16/2018,04/14/2018,03/1104/11/2018 Pneumococcal Conjugate Vacci ne, 20-valent ([id number]) 06/22/2024,12/02/2023(Deferred: - pt states she's already received) [...] AM EDT Home Visit [facility], [facility] [address] [address] [facility], [facility] [address] [address] 10/19/2024 11:00 AM EDT Cardiac Studies Cardiology, [facility] [address] [place] [phone] [facility] [address] [place] [address] 11/02/2024 9:30 AM EDT Home Visit [facility], [facility] [address] [address] Heidi Garcia RN [address] [place] [address] 11/25/2024 10:00 AM EDT Imaging Radiology [facility] [address] [place] [phone] 11/30/2024 10:00 AM EDT Nurse Only Nutrition & Weight Management, [facility] [address] [place] [phone] Boni Nurse Gi Nutrition [facility] [address] [place] [address] 12/09/2024 12:15 PM EDT Hospital Encounter OR [facility], Operating Room, [facility] - 4th Floor [address] [phone] Himanshu Rivero, DO [address] [place] [address] 12/09/2024 12:15 PM EDT - 12/09/2024 12:56 PM EDT Surgery OR [facility], Operating Room, [facility] - 4th Floor [address] [facility] [address] [place] [phone] Himanshu Rivero, DO [address] [place] [address] COLONOSCOPY FLEXIBLE PROXIMAL DIAGNOSTIC 12/15/2024 8:30 AM EDT Office Visit Cardiology, [facility] [address] [place] [phone] Josh Guadalupe MD [address] [place] [address] 12/21/2024 10:30 AM EDT Office Visit Gastroenterology, [facility] [address] [place] [phone] Emi Queen CRNP [address] [address] 03/10/2025 1:20 PM EDT Office Visit Dermatology, [address] [phone] Joanne Parks PA-C [address] [place] [address] [address] [place] [address] Scheduled Procedures Name Priority Associated Diagnoses Date/Ti [...] this encounter Medical Devices Implanted Type Area Reptile Keeper Device Identifier Shelf Expiration Date Model / Serial / Lot Coil Vortex 35 Pltinm [id number] - [id number] Implanted:Qty: 1 on 11/27/2021 by Sterling Cates MD [place] [facility] [place]: Upper Arm [employer] : NEURO INTR [id number] 08/15/2024 [id number] / / [id number] Coil Vortex 35 Pltinm [id number] - [id number] Implanted:Qty: 1 on 11/27/2021 by Sterling Cates MD [place] [facility] [place]: Upper Arm [employer] : NEURO INTR [id number] 08/15/2024 [id number] / / [id number] Coil Vortex 35 Pltinm [id number] - [id number] Implanted:Qty: 1 on 11/27/2021 by Sterling Cates MD at [place] [facility] [place]: Upper Arm [employer] : NEURO INTR [id number] 08/15/2024 [id number] / / [id number] Coil Vortex 35 Pltinm [id number] - [id number] Implanted:Qty: 1 on 11/27/2021 by Sterling Cates MD at [place] [facility] [place]: Upper Arm [employer] : NEURO INTR [id number] 05/16/2024 [id number] / / [id number] Azur 35 Detachable 5mm 11cm - [id number] Implanted:Qty: 1 on 03/19/2022 by Jose Devine MD at [place] [facility] Right: Wrist [employer] [id number] 10/18/2025 [id number] / / [id number] Azur 35 Detachable 5mm 11cm - [id number] Implanted:Qty: 1 on 03/19/2022 by Jose Devine MD at [place] [facility] Right: Wrist [employer] [id number] 06/19/2026 [id number] / / [id number] Mesh Flat Sheet 10x14 [id number] - [id number] Implanted:Qty: 1 on 12/11/2022 by Eros Dash MD at [place] [facility] N/A: Abdomen CR BARD : DAVOL [id number] 06/17/2027 [id number] / / [id number] Defib [place] Mri Tail Board Worker-D - [id number] Implanted:Qty: 1 on 10/07/2024 by Arianne Carrizales IV, MD at [facility] [employer] : FANTASMA 07/03/2025 [id number] / [id number] / [id number] Envelope Antibacteral Tyrx - [id number] Implanted:Qty: 1 on 10/07/2024 by Arianne Carrizales IV, MD at [facility] [employer] : [facility] [id number] 06/02/2025 [id number] / / [id number] Lead Defib Sprint 6935m-62 - [id number] Implanted:Qty: 1 on 10/07/2024 by Arianne Carrizales IV, MD at [facility] [employer] : [facility] [id number] 08/03/2026 [id number] 62 / [id number] / [id number] documented as of this encounter Advance Directives Documents on File Type Date Recorded Patient Clinical Staff Pharmacist Expl anation POL 11/13/2020 POLST NASREEN VALERIA [...] Finley Spouse Health Care Agent Care Teams Traffic Control Officer Relationship Specialty Start Date End Date Luis Fernando Rojas MD [address] [address] PCP - General Family Medicine 09/23/16 documented as of this encounter
--- OUTSIDE RECORDS SUMMARY | 2024-11-04 03:15 | External Medical Summary ---
Author Name Unknown Address Unknown Organization : Laboratory Report Ordering Provider Test Date Status SOLANGE AGGARWAL 10/13/2024 07:29:33 Final Observation Date Value Abnormality Reference (Units ) Status Glucose Point of Care 10/13/2024 07:29:33 134 Above high normal 70-120 (mg/dL) Final Performing Location
--- OUTSIDE RECORDS SUMMARY | 2024-11-04 03:15 | External Medical Summary ---
Author Name Unknown Address Unknown Organization : Laboratory Report Ordering Provider Test Date Status SOLANGE AGGARWAL 10/13/2024 13:24:44 Final Observation Date Value Abnormality Reference (Units ) Status Glucose Point of Care 10/13/2024 13:24:44 122 Above high normal 70-120 (mg/dL) Final Performing Location
--- OUTSIDE RECORDS SUMMARY | 2024-11-04 03:15 | External Medical Summary ---
Author Name Unknown Address Unknown Organization K01:[facility] [place] - [facility] [place] [facility] [place] [address] [facility] [address] Laboratory Report Ordering Provider Test Date Status TESS HOGAN 10/13/2024 04:29:00 Final Observation Date Value Abnormality Reference (Units ) Status WBC, Total 10/13/2024 04:29:00 8.93 4.00-10.80 (K/uL) Final RBC 10/13/2024 04:29:00 2.68 3.85-5.15 (M/uL) Final Hemoglobin 10/13/2024 04:29:00 8.2 Below low normal 12.0-15.3 (g/dL) Final HCT 10/13/2024 04:29:00 25.7 Below low normal 36.0-45.2 (%) Final MCV 10/13/2024 04:29:00 95.9 81.5-97.5 (fL) Final MCH 10/13/2024 04:29:00 30.6 27.0-34.0 (pg) Final MCHC 10/13/2024 04:29:00 31.9 32.0-36.0 (g/dL) Final RDW 10/13/2024 04:29:00 16.2 11.5-15.5 (%) Final Platelets 10/13/2024 04:29:00 190 140-400 (K/uL) Final MPV 10/13/2024 04:29:00 10.9 6.6-11.1 (fL) Final Nucleated erythrocytes/100 leukocytes [Ratio] in Blood by Automated count 10/13/2024 04:29:00 0 <=0 (/100 WBCs) Final Performing Location [facility] - [facility] [place] [facility] [place] [address] [facility] [address]
--- OUTSIDE RECORDS SUMMARY | 2024-11-04 03:15 | External Medical Summary ---
Author Name Unknown Address Unknown Organization K01:[facility]ATORY [facility] [place] - [facility] [address] [facility] [address] Laboratory Report Ordering Provider Test Date Status TESS HOGAN 10/13/2024 04:29:00 Final Observation Date Value Abnormality Reference (Units ) Status BUN 10/13/2024 04:29:00 38 Above high normal 6-20 (mg/dL) Final Creatinine 10/13/2024 04:29:00 6.6 Above high normal 0.5-1.0 (mg/dL) Final Glomerular filtration rate/1.73 sq M.predicted [Volume Rate/Area] in Serum, Plasma or Blood by Creatinine-based formula (CKD-EPI) 10/13/2024 04:29:00 7 Below low normal >=60 (mL/min) Final eGFR is calculated based on the CKD-EPI 2020 equation. Sodium 10/13/2024 04:29:00 132 Below low normal 135 -146 (mmol/L) Final Potassium 10/13/2024 04:29:00 5.0 3.5-5.1 (m mol/L) Final Cl 10/13/2024 04:29:00 94 Below low normal 98- 107 (mmol/L) Final CO2 10/13/2024 04:29:00 23 22-32 (mmo l/L) Final Anion gap 10/13/2024 04:29:00 15 7-15 (mmol /L) Final Glucose 10/13/2024 04:29:00 133 Above high normal 70 -120 (mg/dL) Final Calcium 10/13/2024 04:29:00 9.5 8.4-10.2 ( mg/dL) Final Performing Location LAB[facility]ATORY [facility] [place] - [address] [place] [address]
--- OUTSIDE RECORDS SUMMARY | 2024-11-04 03:15 | External Medical Summary ---
Author Name Unknown Address Unknown Organization K01:LABORATORY [facility] [place] [place] - [facility] [address] [facility] [address] Laboratory Report Ordering Provider Test Date Status TESS HOGAN 10/14/2024 04:16:00 Final Observation Date Value Abnormality Reference (Units ) Status WBC, Total 10/14/2024 04:16:00 10.10 4.00-10.80 (K/uL) Final RBC 10/14/2024 04:16:00 2.61 3.85-5.15 (M/uL) Final Hemoglobin 10/14/2024 04:16:00 7.9 Below low normal 12.0-15.3 (g/dL) Final HCT 10/14/2024 04:16:00 25.4 Below low normal 36.0-45.2 (%) Final MCV 10/14/2024 04:16:00 97.3 81.5-97.5 (fL) Final MCH 10/14/2024 04:16:00 30.3 27.0-34.0 (pg) Final MCHC 10/14/2024 04:16:00 31.1 32.0-36.0 (g/dL) Final RDW 10/14/2024 04:16:00 16.7 11.5-15.5 (%) Final Platelets 10/14/2024 04:16:00 207 140-400 (K/uL) Final MPV 10/14/2024 04:16:00 10.5 6.6-11.1 (fL) Final Nucleated erythrocytes/100 leukocytes [Ratio] in Blood by Automated count 10/14/2024 04:16:00 0 <=0 (/100 WBCs) Final Performing Location LABORATORY [facility] [place] [place] - [facility] [place] [address]
--- OUTSIDE RECORDS SUMMARY | 2024-11-04 03:15 | External Medical Summary ---
Author Name Unknown Address Unknown Organization K01:[facility]ATORY [facility] - [address] [place] [address] Laboratory Report Ordering Provider Test Date Status TESS HOGAN 10/14/2024 04:16:00 Final Observation Date Value Abnormality Reference (Units ) Status Phosphate 10/14/2024 04:16:00 4.0 2.5-4.8 (m g/dL) Final Performing Location [facility]ORATORY [facility] - [address] [place] [address]
--- OUTSIDE RECORDS SUMMARY | 2024-11-04 03:15 | External Medical Summary ---
Author Name Unknown Address Unknown Organization : Laboratory Report Ordering Provider Test Date Status SOLANGE AGGARWAL 10/13/2024 21:26:16 Final Observation Date Value Abnormality Reference (Units ) Status Glucose Point of Care 10/13/2024 21:26:16 147 Above high normal 70-120 (mg/dL) Final Performing Location
--- OUTSIDE RECORDS SUMMARY | 2024-11-04 03:15 | External Medical Summary ---
Author Name Unknown Address Unknown Organization K01:LABORATORY [facility] [place] - [address] [address] Laboratory Report Ordering Provider Test Date Status TESS HOGAN 10/13/2024 04:29:00 Final Observation Date Value Abnormality Reference (Units ) Status Phosphate 10/13/2024 04:29:00 5.5 Above high normal 2. 5-4.8 (mg/dL) Final Performing Location LABORATORY [facility] - [address] [place] [address]
--- OUTSIDE RECORDS SUMMARY | 2024-11-04 03:15 | External Medical Summary | Summary of Care ---
Author Name Unknown Organization [facility] Address [address] [place] [address] Phone [phone] Care Team Providers Care V Belt Coverer Name Role Phone Luis Fernando Rojas MD Primary Care Provider [phone] Reason for Visit * Auth/Cert Specialty Diagnoses / Procedures Referred By Mikey t Referred To Contact Diagnoses V-tach (HCC) VTAC, syncope Jinnyoswj, Honorio Centeno, DO [address] [place] [address] Phone: tel: fax: Ad[place], [facility] [address] [place] [address] Referral ID Status Reason Start Date Expiration Date Visits Re quested Visits Authorized [id number] Encounter Details Date Type Department Care Team (Latest Contact Info) Description 10/12/2024 2:57 PM EDT - 10/12/2024 11:59 PM EDT Hospital Encounter Card[facility] Studies [facility] [address] [place] [address] Discharge Disposition: Home - Self Care Allergies Active Allergy Reactions Criticality Noted Date Comments Salvador Inhibitors Other (Please comment),Cough High HyperKalemia documented as of this encounter (statuses as of 10/13/2024) Medications Lidocaine 5 % External Patch (Lidoderm) Place 1 Patch over 12 hours topically on the skin daily. 30 Patch 10/11/19 25 Active Carvedilol 3.125 MG Oral Tablet (Coreg) Take 1 Tablet by mouth 2 times a day with morning and evening meals. 60 Tablet 2 10/11/19 25 025 Active Midodrine HCl 5 MG Oral Tablet (Proamatine) Take 1 Tablet by mouth daily as needed for Other (30 minutes before dialysis and another 5mg long-term through dialysis if needed). 30 Tablet 3 10/11/19 25 Active Melatonin 10 MG Tablet Take 12 mg by mouth at bedtime. Suspended Aspirin 81 MG Oral Tablet ChewableIndicati ons:Type 2 diabetes mellitus 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 dialysis, with long-term current use of insulin (HCC) Take 1 Tab by mouth at bedtime. with food. 90 Tab 3 02/17/20 21 Suspended FreeStyle Jennifer 2 Sensor Use as directed. Replace every 14 days (supplied through [facility]) 7 Each 3 05/17/20 21 Suspended CPAP every night at bedtime. 12 Suspended ProRenal + D Oral Tablet Take by mouth 1 Tablet daily . 02/29/20 22 Suspended Vitamin D 125 MCG (5000 UT) Oral Capsule Take 1 Capsule by mouth every morning. Suspended Childrens Chewable Vitamins Oral Tablet Chewable Take 1 Tablet by mouth in the morning and 1 Tablet before bedtime. Suspended Biotin 1000 MCG Oral Tablet Take 1 Tablet by mouth in the morning and 1 Tablet before bedtime. Suspended Nitroglycerin 0.4 MG Sublingual Tablet Sublingual (Nitrostat) Place under the tongue 1 Tablet as needed for Pain, Chest. May repeat 3 times. If chest pain continues, call 911. 25 Tablet 11 04/26/20 22 Suspended Acetaminophen 325 MG Oral Tablet (Tylenol) Take 2 Tablets by mouth every 6 hours as needed. Suspended Calcium Citrate-Vitamin D 315-5 MG-MCG Oral Tablet Take 1 Tablet by mouth in the morning. 600 mg of calcium twice daily + 20 mcg of vitamin d twice daily. Suspended BD Pen Needle Mini U/F 31G X 5 MM (Insulin Pen Needle)Indicatio ns:Type 2 diabetes mellitus with hemoglobin A1c goal of less than 7.0% (HCC) Use 4 times daily with insulin 400 Each 3 3 5:15 PM EDT 05/01/20 23 Suspended Calcium Acetate (Phos Binder) 667 MG Oral Capsule (Phoslo) TAKE THREE CAPSULES BY MOUTH WITH EACH MEAL AND TWO CAPSULES WITH SNACKS 1300 Capsule 3 4 3:37 PM EDT 05/01/20 23 Suspended Levothyroxine Sodium 100 MCG Oral Tablet (Levoxyl)Indicat ions:Hypothyroid ism, unspecified type TAKE 1 TABLET BY MOUTH DAILY AT LEAST 30 MINUTES PRIOR TO FIRST MEAL OF THE DAY OR OTHER MEDICATIONS 90 Tablet 3 5 3:02 PM EST 09/10/19 24 Suspended Diclofenac Sodium 1 % External Gel (Voltaren) Apply topically to affected area 3 times a day as needed for Pain. 100 g 2 4 2:10 PM EDT 02/17/20 24 Suspended Citalopram Hydrobromide 20 MG Oral Tablet (CeleXA) Take 1 Tablet by mouth in the morning. Suspended Omeprazole 20 MG Oral Capsule Delayed Release (PriLOSEC)Indica tions:Gastroesop hageal reflux disease without esophagitis Take 1 Capsule by mouth in the morning. 100 Capsule 3 5 8:57 AM EST 03/18/20 24 Suspended Additional Information Patient not taking.Informant: Patient, Reported on 10/05/2024 OneTouch Verio In Vitro Strip (Glucose Blood) To test blood sugar 4 times daily. 400 Strip 1 4 6:47 AM EDT 04/20/20 24 Suspended AcEmpireTouch Delica Lancets 33G To test blood sugar 4 times daily. 400 Each 1 4 6:47 AM EDT 04/20/20 24 Suspended OneTouch Verio w/Device Kit Use as directed. 1 Kit 4 6:47 AM EDT 04/20/20 24 Suspended Albuterol Sulfate 0.63 MG/3ML Inhalation Nebulization Solution (Accuneb) Inhale 1 Vial via nebulizer every 6 hours as needed for Wheezing. Suspended Gabapentin 300 MG Oral Capsule (Neurontin) Take 1 Capsule by mouth at bedtime. Follow up with your primary care provider for further management. 90 Capsule 3 5 2:09 PM EST 08/06/19 25 Suspended Atorvastatin Calcium 40 MG Oral Tablet (Lipitor)Indicat ions:Dyslipidemi a, goal LDL below 100 Take 1 Tablet by mouth in the morning. 90 Tablet 1 5 3:02 PM EST 08/05/19 25 Suspended Colestipol HCl 1 GM Oral Tablet (Colestid) take 2 tablets by mouth at noon daily if needed for diarrhea 180 Tablet 3 5 3:46 PM EST 08/10/19 25 Suspended Insulin Glargine Solostar 100 UNIT/ML Subcutaneous Solution Pen-injector (Basaglar KwikPen)Indicati ons:Type 2 diabetes mellitus with hemoglobin A1c goal of less than 7.0% (HCC) Inject 10 Units under the skin in the morning. 15 mL 4 08/26/19 25 Suspended Insulin Lispro (1 Unit Dial) 100 UNIT/ML Subcutaneous Solution Pen-injector (HumaLOG KwikPen)Indicati ons:Type 2 diabetes mellitus with hemoglobin A1c goal of less than 7.0% (HCC) Inject 12 units with breakfast, 12 units with lunch and 16 units with supper. 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 10/15/2022 [facility]EARCH OTHER*[id number] 01/01/2022 S/P gastric bypass 01/01/[address] [...] as of this encounter (statuses as of 10/13/2024) Resolved Problems Problem Noted Date Diagnosed Date [...] T-tube placement 04/16/2017 05/29/2017 [employer] Other*[id number] 04/13/2013 08/27/2016 Overview (04/13/2013): Study Title: Genomic Markers for Patients with Cardiovascular Disease Project # [id number] Sprinkler Driver: Siena Laws MD [phone] Hypertensive heart disease 03/25/2013 1 07/29/2016 Neuropathy, [...] as of this encounter (statuses as of 10/13/2024) Immunizations Name Administration Dates Next Due COVID-19 mRNA, LNP-s, No Pre serve, 2-Dose Series (Moderna) 04/09/2021,09/23/2020,08/19/2020 COVID-19, LNP-s, No Preserve , Espinoza-sucrose, Ages 12+ (Pfizer) 01/08/2022 COVID-19, MRNA-LNP, PF, 30 M CG/0.3 mL, 12 YRS AND ABOVE, IM (PFIZER-Comirnaty) 06/02/2024 HEPATITIS B VACCINE, RECOMB, 20 MCG/ML, ADULT (HEPLISAV-B) 09/05/2021,05/09/2021,04/04/2021,02/18 Hepatitis B, 20+ yrs 09/16/2018,04/14/2018,03/1104/11/2018 Pneumococcal Conjugate Vacci ne, 20-valent ([id number]) 06/22/2024,12/02/2023(Deferred: - pt states she's already received) [...] No 08/14/2023 Does the household have a karmanos cancer centerr source of income? (Household - for [...] documented in this encounter Miscellaneous Notes * Ancillary Progress Note - Flavia Cotton RN - 10/12/2024 3:00 PM EDT Bedside ANTHONY procedure note: The echo staff arrived at the patients bedside. The patient was identified. The procedure and riskswere explained to the patient and all questions were answered. The informed consent was obtained bythe echo physician, Dr Graves. The patient was administered sedation and continuously monitored bythe PACU staff and remained in their care post procedure. The ANTHONY probe was passed into the patients esophagus without any complications and the vital signs were stable. Probe number [id number]. Echo report pending. Flavia Cotton RN Adult Echo Lab [id number] documented in this encounter Plan of Treatment Upcoming Encounters Date Type Department Care Team (Late st Contact Info) Description 10/14/2024 11:40 AM EDT [facility] [address] [facility] [place] [phone] [place] [address] 10/19/2024 11:00 AM EDT Cardiac Studies Cardiology, [facility] [address] [place] [phone] [facility] [address] [place] [address] 11/02/2024 9:30 AM EDT Home Visit [facility], [facility] [address] [place] [address] Heidi Garcia, RN [address] [place] [address] 11/25/2024 10:00 AM EDT Imaging Radiology [facility] [address] [place] [phone] 11/30/2024 10:00 AM EDT Nurse Only Nutrition & Weight Management, [facility] [address] [place] [phone] [facility], Nurse Gi Nutrition [facility] [address] [facility] [place] [address] 12/09/2024 12:15 PM EDT Hospital Encounter OR [facility], Operating [facility], [facility] - 4th Floor [address] [place] [phone] Himanshu Rivero, DO [address] [place] [address] 12/09/2024 12:15 PM EDT - 12/09/2024 12:56 PM EDT Surgery OR [facility], Operating Room, [facility] - 4th Floor [address] [place] [phone] Himanshu Rivero, DO [address] [place] [address] COLONOSCOPY FLEXIBLE PROXIMAL DIAGNOSTIC 12/21/2024 10:30 AM EDT Office Visit Gastroenterology, [facility] [address] [place] [phone] Emi uQeen CRNP [address] [place] [address] 03/10/2025 1:20 PM EDT Office Visit Dermatology, [address] [place] [phone] Joanne Parks PA-C [address] [place] [address] [place] [address] Scheduled Procedures Name Priority Associated Diagnoses Date/Ti [...] this encounter Medical Devices Implanted Type Area Oracle Reports Developer Device Identifier Shelf Expiration Date Model / Serial / Lot Coil Vortex 35 Pltinm [id number] - [id number] Implanted:Qty: 1 on 11/27/2021 by Sterling Cates MD at [place] [facility] Right: Upper Arm [employer] : NEURO INTR [id number] 08/15/2024 [id number] Coil Vortex 35 Pltinm [id number] - [id number] Implanted:Qty: 1 on 11/27/2021 by Sterling Cates MD at OR [facility] Right: Upper Arm [employer] : NEURO INTR [id number] 08/15/2024 [id number] / [id number] Coil Vortex 35 Pltinm 136431 - [id number] Implanted:Qty: 1 on 11/27/2021 by Sterling Cates MD at OR [facility] Right: Upper Arm [employer] : NEURO INTR [id number] 08/15/2024 [id number] / / [id number] Coil Vortex 35 Pltinm 267236 - [id number] Implanted:Qty: 1 on 11/27/2021 by Sterling Cates MD at OR [facility] Right: Upper Arm [employer] : NEURO INTR [id number] 05/16/2024 [id number] / / [id number] Azur 35 Detachable 5mm 11cm - [id number] Implanted:Qty: 1 on 03/19/2022 by Jose Devine MD at OR [facility] Right: Wrist [employer] [id number] 10/18/2025 [id number] / / [id number] Azur 35 Detachable 5mm 11cm - [id number] Implanted:Qty: 1 on 03/19/2022 by Jose Devine MD at OR [facility] Right: Wrist [employer] [id number] 06/19/2026 [id number] / / [id number] Mesh Flat Sheet 10x14 [id number] - [id number] Implanted:Qty: 1 on 12/11/2022 by Eros Dash MD at OR [facility] N/A: Abdomen CR BARD : DAVOL [id number] 06/17/2027 [id number] / / [id number] Defib [place] Mri Astronomy Professor-D - [id number] Implanted:Qty: 1 on 10/07/2024 by Arianne Carrizales IV, MD at CARDIAC LABS [facility] [employer] : CRM 07/03/2025 [id number] / [id number] / [id number] Envelope Antibacteral Tyrx - [id number] Implanted:Qty: 1 on 10/07/2024 by Arianne Carrizales IV, MD at CARDIAC LABS [facility] [employer] : CRM [id number] 06/02/2025 [id number] / / [id number] Lead Defib Sprint 6935m-62 - [id number] Implanted:Qty: 1 on 10/07/2024 by Arianne Carrizales IV, MD at CARDIAC LABS [facility] [employer] : CRM [id number] 08/03/2026 [id number] / [id number] / [id number] documented as of this encounter Procedures Procedure Name Priority Date/Time Associated Diagnosis Comments TRANSESOPHAGEAL ECHO (COMPLETE) Routine 10/12/2024 3:00 PM EDT Mitral regurgitation documented in this encounter Results * TRANSESOPHAGEAL ECHO (COMPLETE) (10/12/2024 3:00 PM EDT) LEFT VENTRICULAR EJECTION FRACTION 55 % [facility] 10/12/2024 2:50 PM EDT us Beto Aldana MD ECHOCARDIOLOGY Fi nal Result [facility] documented in this encounter Additional Health Concerns Infection Onset Date Last Indicated Resolved Time Enterovirus (resp)/Rhinoviru s Comment:Per Dr. Garsia documentation, pt rhinovirus+ 10/04 at [facility] 10/04/2024 10/06/2024 documented as of this encounter Advance Directives Documents on File Type Date Recorded Patient Manager [employer] Expl reagan ALICIA 11/13/2020 [facility] ORDERS FOR LIFE-SUSTAINING TREATMENT * Full Code (Latest Code Status on File) Date Activated Date Inactivated Comments 10/05/2024 4:21 PM This order ref lects the patients wishes and were consensually agreed [...] Finley Spouse Health Care Agent Care Teams V Belt Coverer Relationship Specialty Start Date End Date Luis Fernando Rojas MD [address] [facility] [place] [address] PCP - General Family Medicine 09/23/16 documented as of this encounter
--- OUTSIDE RECORDS SUMMARY | 2024-11-04 03:15 | External Medical Summary ---
Author Name Unknown Address Unknown Organization : Laboratory Report Ordering Provider Test Date Status SOLANGE AGGARWAL 10/14/2024 07:57:49 Final Observation Date Value Abnormality Reference (Units ) Status Glucose Point of Care 10/14/2024 07:57:49 184 Above high normal 70-120 (mg/dL) Final Performing Location
--- OUTSIDE RECORDS SUMMARY | 2024-11-04 03:15 | External Medical Summary ---
Author Name Unknown Address Unknown Organization K01:[facility] [address] [facility] [address] Laboratory Report Ordering Provider Test Date Status TESS HOGAN 10/14/2024 04:16:00 Final Observation Date Value Abnormality Reference (Units ) Status BUN 10/14/2024 04:16:00 24 Above high normal 6-20 (mg/dL) Final Creatinine 10/14/2024 04:16:00 4.3 Above high normal 0.5-1.0 (mg/dL) Final Glomerular filtration rate/1.73 sq M.predicted [Volume Rate/Area] in Serum, Plasma or Blood by Creatinine-based formula (CKD-EPI) 10/14/2024 04:16:00 11 Below low normal >=60 (mL/min) Final eGFR is calculated based on the CKD-EPI 2020 equation. Sodium 10/14/2024 04:16:00 132 Below low normal 135 -146 (mmol/L) Final Potassium 10/14/2024 04:16:00 4.6 3.5-5.1 (m mol/L) Final Cl 10/14/2024 04:16:00 93 Below low normal 98- 107 (mmol/L) Final CO2 10/14/2024 04:16:00 24 22-32 (mmo l/L) Final Anion gap 10/14/2024 04:16:00 15 7-15 (mmol /L) Final Glucose 10/14/2024 04:16:00 141 Above high normal 70 -120 (mg/dL) Final Calcium 10/14/2024 04:16:00 9.3 8.4-10.2 ( mg/dL) Final Performing Location [facility] [place] [address] [place] [address]
--- OUTSIDE RECORDS SUMMARY | 2024-11-04 03:15 | External Medical Summary ---
Author Name Unknown Address Unknown Organization : Laboratory Report Ordering Provider Test Date Status SOLANGE AGGARWAL 10/14/2024 11:27:15 Final Observation Date Value Abnormality Reference (Units ) Status Glucose Point of Care 10/14/2024 11:27:15 238 Above high normal 70-120 (mg/dL) Final Performing Location
--- OUTSIDE RECORDS SUMMARY | 2024-11-04 03:15 | External Medical Summary ---
Author Name Unknown Address Unknown Organization : Laboratory Report Ordering Provider Test Date Status SOLANGE AGGARWAL 10/12/2024 22:23:05 Final Observation Date Value Abnormality Reference (Units ) Status Glucose Point of Care 10/12/2024 22:23:05 446 Above high normal 70-120 (mg/dL) Final Performing Location
--- OUTSIDE RECORDS SUMMARY | 2024-11-04 03:15 | External Medical Summary | Summary of Care ---
Author Name Unknown Organization [facility] Address [address] [place] [address] Phone [phone] Care Team Providers Care Irish Moss Operator Name Role Phone Luis Fernando Rojas MD Primary Care Provider [phone] Reason for Visit * Auth/Cert Specialty Diagnoses / Procedures Referred By Mikey t Referred To Contact Diagnoses V-tach (HCC) VTAC, syncope Jinnyosjw, Honorio Centeno, DO [address] [place] [address] Phone: tel: fax: Admissions, [facility] [address] [place] [address] Referral ID Status Reason Start Date Expiration Date Visits Re quested Visits Authorized [id number] Encounter Details Date Type Department Care Team (Latest Contact Info) Description 10/11/2024 4:09 PM EDT - 10/11/2024 11:59 PM EDT Hospital Encounter Cardiac Studies [facility] [address] [place] [address] Discharge Disposition: Home - Self Care Allergies Active Allergy Reactions Criticality Noted Date Comments Salvador Inhibitors Other (Please comment),Cough High HyperKalemia documented as of this encounter (statuses as of 10/12/2024) Medications oxyCODONE HCl 5 MG Oral Tablet (Oxy IR) Take 1 Tablet by mouth every 6 hours as needed for Pain, Moderate or Pain, Severe for up to 5 doses. 5 Tablet 10/11/19 25 Active Lidocaine 5 % External Patch (Lidoderm) Place [...] directed. 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 10/15/2022 [facility] RESEARCH OTHER*[id number] 01/01/2022 S/P gastric bypass 01/01/[address] [...] AM EDT): Gabapentin 600 mg at [facility] Assessment & Plan (05/07/2021 11:11 [...] as of this encounter (statuses as of 10/12/2024) Resolved Problems Problem Noted Date Diagnosed Date [...] T-tube placement 04/16/2017 05/29/2017 [facility] Other*[id number] 04/13/2013 08/27/2016 Overview (04/13/2013): Study Title: Genomic Markers for Patients with Cardiovascular Disease Project # [id number] Wellhead Pumper: Siena Laws MD [phone] Hypertensive heart disease 03/25/2013 1 07/29/2016 Neuropathy, [...] as of this encounter (statuses as of 10/12/2024) Immunizations Name Administration Dates Next Due COVID-19 mRNA, LNP-s, No Pre serve, 2-Dose Series (Moderna) 04/09/2021,09/23/2020,08/19/2020 COVID-19, LNP-s, No Preserve , Espinoza-sucrose, Ages 12+ (Pfizer) 01/08/2022 COVID-19, MRNA-LNP, PF, 30 M CG/0.3 mL, 12 YRS AND ABOVE, IM (PFIZER-Comirnaty) 06/02/2024 HEPATITIS B VACCINE, RECOMB, 20 MCG/ML, ADULT (HEPLISAV-B) 09/05/2021,05/09/2021,04/04/2021,02/18 Hepatitis B, 20+ yrs 09/16/2018,04/14/2018,03/1104/11/2018 Pneumococcal Conjugate Vacci ne, 20-valent ([id number]) 06/22/2024,12/02/2023(Deferred: - pt states she's already received) [...] Sign Reading Time Taken Comments Blood Pressure 91/33 10/11/2024 5:30 PM EDT Pulse 60 10/11/2024 5:30 PM EDT Temperature - - Respiratory Rate 16 10/11/2024 5:30 PM EDT Oxygen Saturation 100% 10/11/2024 5:30 PM EDT Inhaled Oxygen Concentration - - [...] Honorio Ramírez RN documented in this encounter Nursing Notes * Flavia Cotton RN - 10/11/2024 5:20 PM EDT Nursing Note for ANTHONY procedure in the echo lab: 1610 The patient arrived to the echo lab. The ANTHONY procedure and risks were explained to the patient. All questions were answered and the patient was connected to the monitors and prepped for the procedure. 1640 The echo doctor, Dr Higuera arrived to the exam room and explained the procedure and risks to the patient. All questions were answered and the informed consent was obtained. 1700 The ANTHONY probe was unable to be passed due to inadequate sedation which was due to hypotension.The ordering provider was notified by Dr Kim. The patient will be monitored continually over the next 30 minutes. She does not c/o pain and although hypotensive at the moment she is alert. 1730 Post procedure the patients vital signs were continuously monitored and the patient was assessed for level of alertness and pain. Vital signs remained stable and after 30 minutes of recovery it was deemed that the patient was stable and safe to transfer to the inpatient unit nurse. Report was called to the inpatient unit nurse, Calli from [facility], she was informed of the inability of us to pass the ANTHONY probe and told to reach out to the service for further orders. The patient was assessed by the echo physcian, Dr Kim prior to leaving the echo lab. The patient was transferred via liter with the patient transport staff. The patients throat was sprayed with Benzocaine at 1644. The Initial sedation dose was administeredat 1645; The last sedation dose was administered at 1657; The total sedation administered during the procedure was Versed 3.5 mg; Fentanyl 75 mcg. Flavia Cotton RN Adult Echo Lab [id number] documented in this encounter Plan of Treatment Upcoming Encounters Date Type Department Care Team (Late st Contact Info) Description 10/14/2024 11:40 AM EDT Telemedicine Pharmacy, [facility] [address] [facility] [facility] [phone] [place] [address] [address] 10/19/2024 11:00 AM EDT Cardiac Studies Cardiology, [facility] [address] [facility] [place] [phone] [facility] [address] [facility] [place] [address] 11/02/2024 9:30 AM EDT Home Visit Luis A at [place], [facility] [address] [facility] [place] [address] Heidi Garcia, RN [address] [place] [address] 11/25/2024 10:00 AM EDT Imaging Radiology [facility] [address] [place] [address] 11/30/2024 10:00 AM EDT Nurse Only Nutrition & Weight Management, [facility] [address] [place] [address] [facility], Nurse Gi Nutrition [facility] [address] [place] [address] 12/09/2024 12:15 PM EDT Hospital Encounter OR [facility], Operating Room, [facility] - 4th Floor [address] [facility] [place] [phone] Himanshu Rivero, DO [address] [place] [address] 12/09/2024 12:15 PM EDT - 12/09/2024 12:56 PM EDT Surgery OR [facility], Operating Room, [facility] - 4th Floor [address] [place] [address] Himanshu Rivero, DO [address] [place] [address] COLONOSCOPY FLEXIBLE PROXIMAL DIAGNOSTIC 12/21/2024 10:30 AM EDT Office Visit Gastroenterology, [facility] [address] [place] [phone] Emi Queen CRNP [address] [place] [address] 03/10/2025 1:20 PM EDT Office Visit Dermatology, [address] [place] [phone] Joanne Parks PA-C [address] [place] [address] [place] [address] Scheduled Procedures Name Priority Associated Diagnoses Date/Ti me ECHOCARDIOGRAPHY, TRANSESOPHAGEAL; INCLUDING PROBE PLACEMENT, IMAGE ACQUISITION, INTERPRETATION AND REPORT Mitral regurgitation 10/12/2024 1:30 PM EDT COLONOSCOPY FLEXIBLE PROXIMAL DIAGNOSTIC History of colonic [...] this encounter Medical Devices Implanted Type Area Bridge Expert Device Identifier Shelf Expiration Date Model / Serial / Lot Coil Vortex 35 Pltinm [id number] - [id number] Implanted:Qty: 1 on 11/27/2021 by Sterling Cates MD at OR [facility] Right: Upper Arm [employer] : NEURO INTR [id number] 08/15/2024 [id number] / / [id number] Coil Vortex 35 Pltinm [id number] - [id number] Implanted:Qty: 1 on 11/27/2021 by Sterling Cates MD at OR [facility] Right: Upper Arm [employer] : NEURO INTR [id number] 08/15/2024 [id number] / / [id number] Coil Vortex 35 Pltinm [id number] - [id number] Implanted:Qty: 1 on 11/27/2021 by Sterling Cates MD at OR [facility] Right: Upper Arm [employer] : NEURO INTR [id number] 08/15/2024 [id number] / [id number] Coil Vortex 35 Pltinm [id number] - [id number] Implanted:Qty: 1 on 11/27/2021 by Sterling Cates MD at OR [facility] Right: Upper Arm [employer] : NEURO INTR [id number] 05/16/2024 [id number] / / [id number] Azur 35 Detachable 5mm 11cm - [id number] Implanted:Qty: 1 on 03/19/2022 by Jose Devine MD at OR [facility] Right: Wrist [employer] [id number] 10/18/2025 [id number] / / [id number] Azur 35 Detachable 5mm 11cm - [id number] Implanted:Qty: 1 on 03/19/2022 by Jose Devine MD at OR [facility] Right: Wrist [employer] [id number] 06/19/2026 [id number] / / [id number] Mesh Flat Sheet 10x14 [id number] - [id number] Implanted:Qty: 1 on 12/11/2022 by Eros Dash MD at OR [facility] N/A: Abdomen CR BARD : DAVOL [id number] 06/17/2027 [id number] / / [id number] Defib Eek Mri Vamp Cut Out Worker-D - [id number] Implanted:Qty: 1 on 10/07/2024 by Arianne Carrizales IV, MD at CARDIAC LABS [facility] [employer] : FANTASMA 07/03/2025 [id number] / [id number] / [id number] Envelope Antibacteral Tyrx - [id number] Implanted:Qty: 1 on 10/07/2024 by Arianne Carrizales IV, MD at CARDIAC LABS [facility] [employer] : [facility] [id number] 06/02/2025 [id number] / / [id number] Lead Defib Sprint 6935m-62 - [id number] Implanted:Qty: 1 on 10/07/2024 by Arianne Carrizales IV, MD at CARDIAC LABS [facility] [employer] : CRM [id number] 08/03/2026 [id number] 62 / [id number] / [id number] documented as of this encounter Procedures Procedure Name Priority Date/Time Associated Diagnosis Comments TRANSESOPHAGEAL ECHO (COMPLETE) Routine 10/11/2024 5:39 PM EDT Valvular heart disease documented in this encounter Visit Diagnoses Diagnosis [...] of right upper extremity (HCC) Aortic atherosclerosis ([facility]) Atherosclerosis [...] sleep apnea (adult) (pediatric) Diarrhea, unspecified type Mitral annular calcification- Primary Mitral valve disorders History of colonic polyps Personal history of colonic polyps Diarrhea documented in this encounter Administered Medications Inactive Administered Medications - up to 3 most recent administrations Medication Order MAR Action Action Date Dose Rate Site benzocaine (topical) (Hurricaine) 20 % spray 2 Kalama 2 Kalama, Topical, PRN For Transesophageal Study Only, Intra-Op, Starting on Fri10/11/24 at 1719, Until Fri10/11/24 at 1918, For 2 hours, For Transesophageal Study Only, Intra-Op, Cardiac Studies_HODHOVIndications:Mitral annular calcification Given 10/11/2024 4:44 PM EDT 1 Each fentaNYL (PF) inj ONCE PRN NARRATOR, Starting on 10/11/24 at 1645, Until 10/11/24 at 1650 Given 10/11/2024 4:50 PM EDT 25 mcg Given 10/11/2024 4:45 PM EDT 50 mcg midazolam (Versed) 2 MG/2ML inj ONCE PRN NARRATOR, Starting on 10/11/24 at 1645, Until 10/11/24 at 1657 Given 10/11/2024 4:57 PM EDT 0.5 mg Given 10/11/2024 4:50 PM EDT 1 mg Given 10/11/2024 4:45 PM EDT 2 mg documented in this encounter Additional Health Concerns Infection Onset Date Last Indicated Resolved Time Enterovirus (resp)/Rhinoviru s Comment:Per Dr. Garsia documentation, pt rhinovirus+ 10/[address] [facility] 10/04/2024 10/06/2024 documented as of this encounter Advance Directives Documents on File Type Date Recorded Patient Reflow Operator Expl anation POLST 11/13/2020 POLST NASREEN [...] on File Name Relationship Healthcare Agent Ameliahi p Communication Zhen Finley Spouse Health Care Agent Care Teams Irish Moss Operator Relationship Specialty Start Date End Date Luis Fernando Rojas MD [address] [place] [address] PCP - General Family Medicine 09/23/16 documented as of this encounter
--- OUTSIDE RECORDS SUMMARY | 2024-11-04 03:16 | External Medical Summary ---
Author Name Unknown Address Unknown Organization : Laboratory Report Ordering Provider Test Date Status SOLANGE AGGARWAL 10/09/2024 20:57:17 Final Observation Date Value Abnormality Reference (Units ) Status Glucose Point of Care 10/09/2024 20:57:17 315 Above high normal 70-120 (mg/dL) Final Performing Location
--- OUTSIDE RECORDS SUMMARY | 2024-11-04 03:16 | External Medical Summary ---
Author Name Unknown Address Unknown Organization : Laboratory Report Ordering Provider Test Date Status SOLANGE AGGARWAL 10/11/2024 21:06:44 Final Observation Date Value Abnormality Reference (Units ) Status Glucose Point of Care 10/11/2024 21:06:44 425 Above high normal 70-120 (mg/dL) Final Performing Location
--- OUTSIDE RECORDS SUMMARY | 2024-11-04 03:16 | External Medical Summary | Summary of Care ---
Author Name Unknown Organization [facility] Address [address] [place] [address] Phone [phone] Care Team Providers Care Rare/Endangered Species Specialist Name Role Phone Luis Fernando Rojas MD Primary Care Provider [phone] Reason for Visit * Reason Onset Date Comments Mycode Lab Reorder 10/12/2024 Encounter Details Date Type Department Care Team (Late st Contact Info) Description 10/12/2024 Orders Only Outcomes Research Department [address] [place] [address] Sumi Hutton CHRA MyCode Research Other*[id number]* Allergies Active Allergy Reactions Criticality Noted Date [...] (30 minutes before dialysis and another 5mg mcc through dialysis if needed). 30 Tablet 3 [...] directed. 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 10/15/2022 [facility] RESEARCH OTHER*[id number] 01/01/2022 S/P gastric bypass 01/01/[address] [...] T-tube placement 04/16/2017 05/29/2017 [facility] Other*[id number] 04/13/2013 08/27/2016 Overview (04/13/2013): Study Title: Genomic Markers for Patients with Cardiovascular Disease Project # [id number] Tar Boiler: Siena Laws MD [phone] Hypertensive heart disease 03/25/2013 1 07/29/2016 Neuropathy, [...] yrs 09/16/2018,04/14/2018,03/1104/11/2018 Pneumococcal Conjugate Vacci ne, 20-valent ([id number]) 06/22/2024,12/02/2023(Deferred: - pt states she's already received) [...] No 08/14/2023 Does the household have a nor-[facility]a general hospitallar source of income? (Household - for [...] Assessment Author Yes 10/05/2024 3:55 PM Honorio Joiner, RN * Do you have difficulty dressing [...] No 10/05/2024 3:55 PM EDT Honorio Ramírez, RN documented as of this encounter Mental Status * Because of a physical, mental, or emotional condition, do you have serious difficulty concentrating, remembering, or making decisions? (5 years old or older) Answer Entry Date Author No 10/05/2024 3:55 PM EDT Honorio Ramírez, JOHN documented in this encounter Progress Notes * Sumi Hutton CHRA - 10/12/2024 10:28 AM EDT MyCode lab reordered. documented in this encounter Plan of Treatment Upcoming Encounters Date Type Department Care Team (Late st Contact Info) Description 10/14/2024 11:40 AM EDT Telemedicine Pharmacy, [facility] [address] [facility] [phone] [place] [phone] [facility] [address] 10/19/2024 11:00 AM EDT Cardiac Studies Cardiology, [facility] [address] [place] [phone] [facility] [address] [place] [address] 11/02/2024 9:30 AM EDT [facility] [address] [place] [address] Heidi Garcia RN [address] [place] [address] 11/25/2024 10:00 AM EDT Imaging Radiology [facility] [address] [place] [address] 11/30/2024 10:00 AM EDT Nurse Only Nutrition & Weight Management, [facility] [address] [place] [address] [facility], Nurse Gi Nutrition [facility] [address] [place] [address] 12/09/2024 12:15 PM EDT Hospital Encounter OR [facility], Operating Room, [facility] - 4th Floor [address] [facility] [place] [phone] Himanshu Rivero, DO [address] [place] [address] 12/09/2024 12:15 PM EDT - 12/09/2024 12:56 PM EDT Surgery OR [facility], Operating Room, [facility] - 4th Floor [address] [facility] [place] [phone] Himanshu Rivero, DO [address] [place] [address] COLONOSCOPY FLEXIBLE PROXIMAL DIAGNOSTIC 12/21/2024 10:30 AM EDT Office Visit Gastroenterology, [facility] [address] [place] [address] Emi Queen CRNP [address] [place] [address] 03/10/2025 1:20 PM EDT Office Visit Dermatology, [address] [place] [phone] Joanne Parks PA-C [address] [place] [address] [place] [address] Scheduled Orders Name Type Priority Associated Diagnoses Orde r Schedule MYCODE SUBSEQUENT ADULT Lab Routine MyCode Research Other*[id number] Every 6 Months for 2 Occurrences starting 10/12/2024 until 11/01/2025 Scheduled Procedures Name Priority Associated Diagnoses Date/Ti [...] this encounter Medical Devices Implanted Type Area Room Manager Device Identifier Shelf Expiration Date Model / Serial / Lot Coil Vortex 35 Pltinm [id number] - [id number] Implanted:Qty: 1 on 11/27/2021 by Sterling Cates MD at OR [facility] [place] Right: Upper Arm [employer] : NEURO INTR [id number] 08/15/2024 [id number] Coil Vortex 35 Pltinm [id number] - [id number] Implanted:Qty: 1 on 11/27/2021 by Sterling Cates MD at OR [facility] [place] Right: Upper Arm [employer] : NEURO INTR [id number] 08/15/2024 [id number] Coil Vortex 35 Pltinm 733780 - [id number] Implanted:Qty: 1 on 11/27/2021 by Sterling Cates MD at OR [facility] [place] Right: Upper Arm [employer] : NEURO INTR [id number] 08/15/2024 [id number] Coil Vortex 35 Pltinm 109299 - [id number] Implanted:Qty: 1 on 11/27/2021 by Sterling Cates MD at OR [facility] [place] Right: Upper Arm [employer] : NEURO INTR [id number] 05/16/2024 [id number] Azur 35 Detachable 5mm 11cm - [id number] Implanted:Qty: 1 on 03/19/2022 by Jose Devine MD at OR [facility] [place] Right: Wrist [employer] [id number] 10/18/2025 [id number] / / [id number] Azur 35 Detachable 5mm 11cm - [id number] Implanted:Qty: 1 on 03/19/2022 by Jose Devine MD at OR [facility] [place] [place] Right: Wrist [employer] [id number] 06/19/2026 [id number] / / [id number] Mesh Flat Sheet 10x14 [id number] - [id number] Implanted:Qty: 1 on 12/11/2022 by Eros Dash MD at OR [facility] [place] [place] N/A: Abdomen CR BARD : DAVOL [id number] 06/17/2027 [id number] / / [id number] Defib Downey Mri Truck Driver Instructor-D - [id number] Implanted:Qty: 1 on 10/07/2024 by Arianne Carrizales IV, MD at CARDIAC LABS [facility] [place] [place] [employer] : FANTASMA 07/03/2025 [id number] / [id number] / [id number] Envelope Antibacteral Tyrx - [id number] Implanted:Qty: 1 on 10/07/2024 by Arianne Carrizales IV, MD at CARD[facility]AC LABS [facility] [place] [place] [employer] : [facility] [id number] 06/02/2025 [id number] / / [id number] Lead Defib Sprint 6935m-62 - [id number] Implanted:Qty: 1 on 10/07/2024 by Arianne Carrizales IV, MD at CARDIAC LABS [facility] [place] [place] [employer] : [facility] [id number] 08/03/2026 [id number] 62 / [id number] / [id number] documented as of this encounter Visit Diagnoses [...] with long-term current use of insulin (HCC) S/P gastric bypass Bariatric surgery status ESRD [...] sleep apnea (adult) (pediatric) Diarrhea, unspecified type MyCode Research Other*[id number]- Primary History of colonic polyps Personal history of colonic polyps Diarrhea documented in this encounter Additional Health Concerns Infection Onset Date Last Indicated Resolved Time Enterovirus (resp)/Rhinoviru s Comment:Per Dr. Garsia documentation, pt rhinovirus+ 10/04 at [facility] 10/04/2024 10/06/2024 documented as of this encounter Advance Directives Documents on File Type Date Recorded Patient Call Center Team Leader Expl anation POLST 11/13/2020 POLST [place] [...] Finley Spouse Health Care Agent Care Teams Rare/Endangered Species Specialist Relationship Specialty Start Date End Date Luis Fernando Rojas MD [address] [place] [address] PCP - General Family Medicine 09/23/16 documented as of this encounter
--- OUTSIDE RECORDS SUMMARY | 2024-11-04 03:16 | External Medical Summary ---
Author Name Unknown Address Unknown Organization : Laboratory Report Ordering Provider Test Date Status SOLANGE AGGARWAL 10/10/2024 16:46:52 Final Observation Date Value Abnormality Reference (Units ) Status Glucose Point of Care 10/10/2024 16:46:52 287 Above high normal 70-120 (mg/dL) Final Performing Location
--- OUTSIDE RECORDS SUMMARY | 2024-11-04 03:16 | External Medical Summary ---
Author Name Unknown Address Unknown Organization : Laboratory Report Ordering Provider Test Date Status SOLANGE AGGARWAL 10/12/2024 07:42:36 Final Observation Date Value Abnormality Reference (Units ) Status Glucose Point of Care 10/12/2024 07:42:36 121 Above high normal 70-120 (mg/dL) Final Performing Location
--- OUTSIDE RECORDS SUMMARY | 2024-11-04 03:16 | External Medical Summary ---
Author Name Unknown Address Unknown Organization : Laboratory Report Ordering Provider Test Date Status SOLANGE AGGARWAL 10/12/2024 00:04:01 Final Observation Date Value Abnormality Reference (Units ) Status Glucose Point of Care 10/12/2024 00:04:01 364 Above high normal 70-120 (mg/dL) Final Performing Location
--- OUTSIDE RECORDS SUMMARY | 2024-11-04 03:16 | External Medical Summary ---
Author Name Unknown Address Unknown Organization : Laboratory Report Ordering Provider Test Date Status SOLANGE AGGARWAL 10/10/2024 21:04:27 Final Observation Date Value Abnormality Reference (Units ) Status Glucose Point of Care 10/10/2024 21:04:27 307 Above high normal 70-120 (mg/dL) Final Performing Location
--- OUTSIDE RECORDS SUMMARY | 2024-11-04 03:16 | External Medical Summary ---
Author Name Unknown Address Unknown Organization : Laboratory Report Ordering Provider Test Date Status SOLANGE AGGARWAL 10/12/2024 16:48:26 Final Observation Date Value Abnormality Reference (Units ) Status Glucose Point of Care 10/12/2024 16:48:26 140 Above high normal 70-120 (mg/dL) Final Performing Location
--- OUTSIDE RECORDS SUMMARY | 2024-11-04 03:16 | External Medical Summary ---
Author Name Unknown Address Unknown Organization K01:LABORATORY [facility] - [facility] [address] [facility] [address] [facility] [address] Laboratory Report Ordering Provider Test Date Status KELSY GARCIALAN 10/12/2024 04:45:00 Final Observation Date Value Abnormality Reference (Units ) Status Albumin 10/12/2024 04:45:00 3.4 Below low normal 3.8-5.0 (g/dL) Final AST (Aspartate aminotransferase) 10/12/2024 04:45:00 26 10-35 (U/L) Final Results may be falsely eleva yaya due to hemolysis. Alk Phos 10/12/2024 04:45:00 112 35-130 (U/ L) Final ALT (Alanine aminotransferase) 10/12/2024 04:45:00 <5 Below low normal 10-35 (U/L) Final Bilirubin, Total 10/12/2024 04:45:00 0.3 <=1 .2 (mg/dL) Final Bilirubin, Direct 10/12/2024 04:45:00 <0.1 0. 0-0.3 (mg/dL) Final Result may be falsely decrea sed due to hemolysis. Protein 10/12/2024 04:45:00 6.1 6.0-8.3 (g /dL) Final Performing Location LABORATORY [facility] - [facility] [address] [facility] [address]
--- OUTSIDE RECORDS SUMMARY | 2024-11-04 03:16 | External Medical Summary ---
Author Name Unknown Address Unknown Organization : Laboratory Report Ordering Provider Test Date Status SOLANGE AGGARWAL 10/08/2024 21:58:55 Final Observation Date Value Abnormality Reference (Units ) Status Glucose Point of Care 10/08/2024 21:58:55 213 Above high normal 70-120 (mg/dL) Final Performing Location
--- OUTSIDE RECORDS SUMMARY | 2024-11-04 03:16 | External Medical Summary ---
Author Name Unknown Address Unknown Organization K01:[place] [facility] [address] [address] Laboratory Report Ordering Provider Test Date Status TESS HOGAN 10/09/2024 05:07:37 Final Observation Date Value Abnormality Reference (Units ) Status Phosphate 10/09/2024 05:07:37 5.6 Above high normal 2. 5-4.8 (mg/dL) Final Performing Location [facility] - [address] [place] [address]
--- OUTSIDE RECORDS SUMMARY | 2024-11-04 03:16 | External Medical Summary ---
Author Name Unknown Address Unknown Organization : Laboratory Report Ordering Provider Test Date Status SOLANGE AGGARWAL 10/11/2024 22:38:33 Final Observation Date Value Abnormality Reference (Units) Status Glucose Point of Care 10/11/2024 22:38:33 >500 Above upper panic limits 70-120 (mg/dL) Final POCT DEVICE COMMENT 10/11/2024 22:38:33 Notified Provider Final Performing Location
--- OUTSIDE RECORDS SUMMARY | 2024-11-04 03:16 | External Medical Summary ---
Author Name Unknown Address Unknown Organization [id number]:LABORATORY [facility] [place] [address] [address] Laboratory Report Ordering Provider Test Date Status SOLANGE AGGARWAL 10/10/2024 17:56:00 Final Exclude Heart Failure: <300 pg/mL
Diagnose Heart Failure:
Age <50 yr: >450 pg/mL
50-75 yr: >900 pg/mL
>75 yr: >1800 pg/mL
GFR is 30-59 mL/min: >1200 pg/mL or Age- adjusted values
GFR <30 mL/min: do not use, not reliable

Prognostic threshold: 1000 pg/mL Observation Date Value Abnormality Reference (Units ) Status BNP, Pro-hormone 10/10/2024 17:56:00 [address] Above high no rmal <300 (pg/mL) Final Performing Location LABORATORY [facility] [place] - [facility] [address] [address]
--- OUTSIDE RECORDS SUMMARY | 2024-11-04 03:16 | External Medical Summary ---
Author Name Unknown Address Unknown Organization : Laboratory Report Ordering Provider Test Date Status SOLANGE AGGARWAL 10/09/2024 08:13:30 Final Observation Date Value Abnormality Reference (Units ) Status Glucose Point of Care 10/09/2024 08:13:30 131 Above high normal 70-120 (mg/dL) Final Performing Location
--- OUTSIDE RECORDS SUMMARY | 2024-11-04 03:16 | External Medical Summary ---
Author Name Unknown Address Unknown Organization K01:LABORATORY [facility] [place] - [facility] [address] [facility] [address] Laboratory Report Ordering Provider Test Date Status TESS HOGAN 10/12/2024 04:45:00 Final Observation Date Value Abnormality Reference (Units ) Status WBC, Total 10/12/2024 04:45:00 9.58 4.00-10.80 (K/uL) Final RBC 10/12/2024 04:45:00 2.94 3.85-5.15 (M/uL) Final Hemoglobin 10/12/2024 04:45:00 8.8 Below low normal 12.0-15.3 (g/dL) Final HCT 10/12/2024 04:45:00 28.0 Below low normal 36.0-45.2 (%) Final MCV 10/12/2024 04:45:00 95.2 81.5-97.5 (fL) Final MCH 10/12/2024 04:45:00 29.9 27.0-34.0 (pg) Final MCHC 10/12/2024 04:45:00 31.4 32.0-36.0 (g/dL) Final RDW 10/12/2024 04:45:00 16.1 11.5-15.5 (%) Final Platelets 10/12/2024 04:45:00 209 140-400 (K/uL) Final MPV 10/12/2024 04:45:00 10.0 6.6-11.1 (fL) Final Nucleated erythrocytes/100 leukocytes [Ratio] in Blood by Automated count 10/12/2024 04:45:00 0 <=0 (/100 WBCs) Final Performing Location LABORATORY [facility] [place] - [facility] [address] [facility] [address]
--- OUTSIDE RECORDS SUMMARY | 2024-11-04 03:16 | External Medical Summary ---
Author Name Unknown Address Unknown Organization K01:LABORATORY [facility] [place] - [address] [address] Laboratory Report Ordering Provider Test Date Status TESS HOGAN 10/11/2024 06:20:00 Final Observation Date Value Abnormality Reference (Units ) Status Phosphate 10/11/2024 06:20:00 6.3 Above high normal 2. 5-4.8 (mg/dL) Final Performing Location LABORATORY C - [address] [place] [address]
--- OUTSIDE RECORDS SUMMARY | 2024-11-04 03:16 | External Medical Summary ---
Author Name Unknown Address Unknown Organization K01:[place] [facility] [place] [facility] [address] [facility] [address] Laboratory Report Ordering Provider Test Date Status TESS HOGAN 10/08/2024 20:34:10 Final Observation Date Value Abnormality Reference (Units ) Status BUN 10/08/2024 20:34:10 24 Above high normal 6-20 (mg/dL) Final Creatinine 10/08/2024 20:34:10 5.1 Above high normal 0.5-1.0 (mg/dL) Final Glomerular filtration rate/1.73 sq M.predicted [Volume Rate/Area] in Serum, Plasma or Blood by Creatinine-based formula (CKD-EPI) 10/08/2024 20:34:10 9 Below low normal >=60 (mL/min) Final eGFR is calculated based on the CKD-EPI 2020 equation. Sodium 10/08/2024 20:34:10 130 Below low normal 135 -146 (mmol/L) Final Potassium 10/08/2024 20:34:10 4.0 3.5-5.1 (m mol/L) Final Cl 10/08/2024 20:34:10 92 Below low normal 98- 107 (mmol/L) Final CO2 10/08/2024 20:34:10 25 22-32 (mmo l/L) Final Anion gap 10/08/2024 20:34:10 13 7-15 (mmol /L) Final Glucose 10/08/2024 20:34:10 263 Above high normal 70 -120 (mg/dL) Final Calcium 10/08/2024 20:34:10 9.0 8.4-10.2 ( mg/dL) Final Performing Location LAB[facility]ORY [facility] [place] [address] [place] [address]
--- OUTSIDE RECORDS SUMMARY | 2024-11-04 03:16 | External Medical Summary ---
Author Name Unknown Address Unknown Organization K01:LABORATORY [facility] - [address] [address] Laboratory Report Ordering Provider Test Date Status TESS HOGAN 10/09/2024 05:07:37 Final Observation Date Value Abnormality Reference (Units ) Status Magnesium 10/09/2024 05:07:37 2.2 1.5-2.6 (m g/dL) Final Performing Location LAB[facility] - [address] [place] [address]
--- OUTSIDE RECORDS SUMMARY | 2024-11-04 03:16 | External Medical Summary ---
Author Name Unknown Address Unknown Organization : Laboratory Report Ordering Provider Test Date Status SOLANGE AGGARWAL 10/09/2024 12:34:40 Final Observation Date Value Abnormality Reference (Units ) Status Glucose Point of Care 10/09/2024 12:34:40 190 Above high normal 70-120 (mg/dL) Final Performing Location
--- OUTSIDE RECORDS SUMMARY | 2024-11-04 03:16 | External Medical Summary ---
Author Name Unknown Address Unknown Organization : Laboratory Report Ordering Provider Test Date Status SOLANGE AGGARWAL 10/12/2024 11:36:53 Final Observation Date Value Abnormality Reference (Units ) Status Glucose Point of Care 10/12/2024 11:36:53 151 Above high normal 70-120 (mg/dL) Final Performing Location
--- OUTSIDE RECORDS SUMMARY | 2024-11-04 03:16 | External Medical Summary ---
Author Name Unknown Address Unknown Organization K01:[place] [facility] [place] [facility] [address] [facility] [address] Laboratory Report Ordering Provider Test Date Status TESS HOGAN 10/12/2024 04:45:00 Final Observation Date Value Abnormality Reference (Units ) Status BUN 10/12/2024 04:45:00 29 Above high normal 6-20 (mg/dL) Final Creatinine 10/12/2024 04:45:00 5.3 Above high normal 0.5-1.0 (mg/dL) Final Glomerular filtration rate/1.73 sq M.predicted [Volume Rate/Area] in Serum, Plasma or Blood by Creatinine-based formula (CKD-EPI) 10/12/2024 04:45:00 8 Below low normal >=60 (mL/min) Final eGFR is calculated based on the CKD-EPI 2020 equation. Sodium 10/12/2024 04:45:00 134 Below low normal 135 -146 (mmol/L) Final Potassium 10/12/2024 04:45:00 5.1 3.5-5.1 (m mol/L) Final Cl 10/12/2024 04:45:00 95 Below low normal 98- 107 (mmol/L) Final CO2 10/12/2024 04:45:00 24 22-32 (mmo l/L) Final Anion gap 10/12/2024 04:45:00 15 7-15 (mmol /L) Final Glucose 10/12/2024 04:45:00 168 Above high normal 70 -120 (mg/dL) Final Calcium 10/12/2024 04:45:00 9.4 8.4-10.2 ( mg/dL) Final Performing Location LABORATORY [facility] [place] [address] [place] [id number]
--- OUTSIDE RECORDS SUMMARY | 2024-11-04 03:16 | External Medical Summary ---
Author Name Unknown Address Unknown Organization K01:LABORATORY [facility] [place] [address] [address] Laboratory Report Ordering Provider Test Date Status TESS HOGAN 10/12/2024 04:45:00 Final Observation Date Value Abnormality Reference (Units ) Status Phosphate 10/12/2024 04:45:00 5.3 Above high normal 2. 5-4.8 (mg/dL) Final Performing Location LABORATORY C - [address] [place] [address]
--- OUTSIDE RECORDS SUMMARY | 2024-11-04 03:16 | External Medical Summary ---
Author Name Unknown Address Unknown Organization : Laboratory Report Ordering Provider Test Date Status SOLANGE AGGARWAL 10/09/2024 16:48:42 Final Observation Date Value Abnormality Reference (Units ) Status Glucose Point of Care 10/09/2024 16:48:42 238 Above high normal 70-120 (mg/dL) Final Performing Location
--- OUTSIDE RECORDS SUMMARY | 2024-11-04 03:16 | External Medical Summary ---
Author Name Unknown Address Unknown Organization K01:[place] [facility] [place] [facility] [address] [facility] [address] Laboratory Report Ordering Provider Test Date Status TESS HOGAN 10/09/2024 05:07:37 Final Observation Date Value Abnormality Reference (Units ) Status BUN 10/09/2024 05:07:37 26 Above high normal 6-20 (mg/dL) Final Creatinine 10/09/2024 05:07:37 5.7 Above high normal 0.5-1.0 (mg/dL) Final Glomerular filtration rate/1.73 sq M.predicted [Volume Rate/Area] in Serum, Plasma or Blood by Creatinine-based formula (CKD-EPI) 10/09/2024 05:07:37 8 Below low normal >=60 (mL/min) Final eGFR is calculated based on the CKD-EPI 2020 equation. Sodium 10/09/2024 05:07:37 134 Below low normal 135 -146 (mmol/L) Final Potassium 10/09/2024 05:07:37 4.5 3.5-5.1 (m mol/L) Final Cl 10/09/2024 05:07:37 94 Below low normal 98- 107 (mmol/L) Final CO2 10/09/2024 05:07:37 27 22-32 (mmo l/L) Final Anion gap 10/09/2024 05:07:37 13 7-15 (mmol /L) Final Glucose 10/09/2024 05:07:37 120 70-120 (mg /dL) Final Calcium 10/09/2024 05:07:37 9.1 8.4-10.2 ( mg/dL) Final Performing Location LABORATORY [facility] [place] [address] [place] [address]
--- OUTSIDE RECORDS SUMMARY | 2024-11-04 03:16 | External Medical Summary ---
Author Name Unknown Address Unknown Organization K01:[place] [facility] [place] [facility] [address] [facility] [address] Laboratory Report Ordering Provider Test Date Status TESS HOGAN 10/09/2024 05:07:37 Final Observation Date Value Abnormality Reference (Units ) Status WBC, Total 10/09/2024 05:07:37 9.57 4.00-10.80 (K/uL) Final RBC 10/09/2024 05:07:37 2.71 3.85-5.15 (M/uL) Final Hemoglobin 10/09/2024 05:07:37 8.2 Below low normal 12.0-15.3 (g/dL) Final HCT 10/09/2024 05:07:37 26.7 Below low normal 36.0-45.2 (%) Final MCV 10/09/2024 05:07:37 98.5 81.5-97.5 (fL) Final MCH 10/09/2024 05:07:37 30.3 27.0-34.0 (pg) Final MCHC 10/09/2024 05:07:37 30.7 32.0-36.0 (g/dL) Final RDW 10/09/2024 05:07:37 16.8 11.5-15.5 (%) Final Platelets 10/09/2024 05:07:37 194 140-400 (K/uL) Final MPV 10/09/2024 05:07:37 9.8 6.6-11.1 (fL) Final Nucleated erythrocytes/100 leukocytes [Ratio] in Blood by Automated count 10/09/2024 05:07:37 0 <=0 (/100 WBCs) Final Performing Location [place] [facility] [place] [facility] [address] [address] [place] [address]
--- OUTSIDE RECORDS SUMMARY | 2024-11-04 03:16 | External Medical Summary ---
Author Name Unknown Address Unknown Organization : Laboratory Report Ordering Provider Test Date Status SOLANGE AGGARWAL 10/10/2024 07:34:33 Final Observation Date Value Abnormality Reference (Units ) Status Glucose Point of Care 10/10/2024 07:34:33 134 Above high normal 70-120 (mg/dL) Final Performing Location
--- OUTSIDE RECORDS SUMMARY | 2024-11-04 03:16 | External Medical Summary ---
Author Name Unknown Address Unknown Organization K01:LABORATORY [facility] [place] - [facility] [address] [facility] [address] Laboratory Report Ordering Provider Test Date Status TESS HOGAN 10/11/2024 06:20:00 Final Observation Date Value Abnormality Reference (Units ) Status BUN 10/11/2024 06:20:00 55 Above high normal 6-20 (mg/dL) Final Creatinine 10/11/2024 06:20:00 8.4 Above high normal 0.5-1.0 (mg/dL) Final Glomerular filtration rate/1.73 sq M.predicted [Volume Rate/Area] in Serum, Plasma or Blood by Creatinine-based formula (CKD-EPI) 10/11/2024 06:20:00 5 Below low normal >=60 (mL/min) Final eGFR is calculated based on the CKD-EPI 2020 equation. Sodium 10/11/2024 06:20:00 128 Below low normal 135 -146 (mmol/L) Final Potassium 10/11/2024 06:20:00 6.0 Above high normal 3. 5-5.1 (mmol/L) Final Cl 10/11/2024 06:20:00 90 Below low normal 98- 107 (mmol/L) Final CO2 10/11/2024 06:20:00 20 Below low normal 22- 32 (mmol/L) Final Anion gap 10/11/2024 06:20:00 18 Above high normal 7- 15 (mmol/L) Final Glucose 10/11/2024 06:20:00 108 70-120 (mg /dL) Final Calcium 10/11/2024 06:20:00 9.2 8.4-10.2 ( mg/dL) Final Performing Location LABORATORY [facility] [place] - [address] [place] [id number]
--- OUTSIDE RECORDS SUMMARY | 2024-11-04 03:16 | External Medical Summary ---
Author Name Unknown Address Unknown Organization K01:LABORATORY [facility] - [address] [address] Laboratory Report Ordering Provider Test Date Status TESS HOGAN 10/08/2024 20:34:10 Final Observation Date Value Abnormality Reference (Units ) Status Magnesium 10/08/2024 20:34:10 2.1 1.5-2.6 (m g/dL) Final Performing Location LAB[facility] - [address] [place] [address]
--- OUTSIDE RECORDS SUMMARY | 2024-11-04 03:17 | External Medical Summary ---
Author Name Unknown Address Unknown Organization K01:LABORATORY [place] [address] [address] [facility] [address] Laboratory Report Ordering Provider Test Date Status TESS HOGAN 10/08/2024 03:27:27 Final Observation Date Value Abnormality Reference (Units ) Status BUN 10/08/2024 03:27:27 52 Above high normal 6-20 (mg/dL) Final Creatinine 10/08/2024 03:27:27 9.2 Above high normal 0.5-1.0 (mg/dL) Final Glomerular filtration rate/1.73 sq M.predicted [Volume Rate/Area] in Serum, Plasma or Blood by Creatinine-based formula (CKD-EPI) 10/08/2024 03:27:27 4 Below low normal >=60 (mL/min) Final eGFR is calculated based on the CKD-EPI 2020 equation. Sodium 10/08/2024 03:27:27 133 Below low normal 135 -146 (mmol/L) Final Potassium 10/08/2024 03:27:27 5.2 Above high normal 3. 5-5.1 (mmol/L) Final Cl 10/08/2024 03:27:27 91 Below low normal 98- 107 (mmol/L) Final CO2 10/08/2024 03:27:27 25 22-32 (mmo l/L) Final Anion gap 10/08/2024 03:27:27 17 Above high normal 7- 15 (mmol/L) Final Glucose 10/08/2024 03:27:27 169 Above high normal 70 -120 (mg/dL) Final Calcium 10/08/2024 03:27:27 8.8 8.4-10.2 ( mg/dL) Final Performing Location LABORATORY [facility] [place] - [facility] [place] [address]
--- OUTSIDE RECORDS SUMMARY | 2024-11-04 03:17 | External Medical Summary ---
Author Name Unknown Address Unknown Organization K01:LABORATORY [facility] [place] - [facility] [address] [facility] [address] Laboratory Report Ordering Provider Test Date Status TESS HOGAN 10/06/2024 16:03:32 Final Observation Date Value Abnormality Reference (Units ) Status BUN 10/06/2024 16:03:32 38 Above high normal 6-20 (mg/dL) Final Creatinine 10/06/2024 16:03:32 7.5 Above high normal 0.5-1.0 (mg/dL) Final Glomerular filtration rate/1.73 sq M.predicted [Volume Rate/Area] in Serum, Plasma or Blood by Creatinine-based formula (CKD-EPI) 10/06/2024 16:03:32 6 Below low normal >=60 (mL/min) Final eGFR is calculated based on the CKD-EPI 2020 equation. Sodium 10/06/2024 16:03:32 133 Below low normal 135 -146 (mmol/L) Final Potassium 10/06/2024 16:03:32 4.9 3.5-5.1 (m mol/L) Final Cl 10/06/2024 16:03:32 91 Below low normal 98- 107 (mmol/L) Final CO2 10/06/2024 16:03:32 25 22-32 (mmo l/L) Final Anion gap 10/06/2024 16:03:32 17 Above high normal 7- 15 (mmol/L) Final Glucose 10/06/2024 16:03:32 136 Above high normal 70 -120 (mg/dL) Final Calcium 10/06/2024 16:03:32 9.6 8.4-10.2 ( mg/dL) Final Performing Location LABORATORY [facility] [place] - [facility] [place] [address]
--- OUTSIDE RECORDS SUMMARY | 2024-11-04 03:17 | External Medical Summary ---
Author Name Unknown Address Unknown Organization : Laboratory Report Ordering Provider Test Date Status SHREE GARSIA 10/06/2024 17:31:58 Final NORMAL (NON-HEPARINIZED) 74- 137 SECONDS
HEPARINIZED � � � � � � � � � 200+ � SECONDS
CRITICAL GREATER THAN � � 1000 � SECONDS
null Observation Date Value Abnormality Reference (Units ) Status Kaolin activated time [Units/volume] in Blood 10/06/2024 17:31:58 227 50-1000 (secs) Final Performing Location
--- OUTSIDE RECORDS SUMMARY | 2024-11-04 03:17 | External Medical Summary ---
Author Name Unknown Address Unknown Organization K01:LABORATORY [facility] [place] [facility] - [address] [address] Laboratory Report Ordering Provider Test Date Status REYES RIVAS 10/07/2024 04:27:26 Final Observation Date Value Abnormality Reference (Units ) Status ABO 10/07/2024 04:27:26 AB Final RH 10/07/2024 04:27:26 Positive Final RED BLOOD CELL ANTIBODY SCREEN 10/07/2024 04:27:26 Negative Final SPECIMEN EXPIRATION DATE 10/07/2024 04:27:26 10/10/2024 23:59 Final Performing Location LABORATORY [facility] [place] [facility] - [address] [address]
--- OUTSIDE RECORDS SUMMARY | 2024-11-04 03:17 | External Medical Summary ---
Author Name Unknown Address Unknown Organization : Laboratory Report Ordering Provider Test Date Status SOLANGE AGGARWAL 10/07/2024 11:34:49 Final Observation Date Value Abnormality Reference (Units ) Status Glucose Point of Care 10/07/2024 11:34:49 135 Above high normal 70-120 (mg/dL) Final Performing Location
--- OUTSIDE RECORDS SUMMARY | 2024-11-04 03:17 | External Medical Summary ---
Author Name Unknown Address Unknown Organization : Laboratory Report Ordering Provider Test Date Status SHREE GARSIA 10/06/2024 18:28:27 Final Observation Date Value Abnormality Reference (Units ) Status Glucose Point of Care 10/06/2024 18:28:27 127 Above high normal 70-120 (mg/dL) Final Performing Location
--- OUTSIDE RECORDS SUMMARY | 2024-11-04 03:17 | External Medical Summary ---
Author Name Unknown Address Unknown Organization : Laboratory Report Ordering Provider Test Date Status SOLANGE AGGARWAL 10/07/2024 21:39:34 Final Observation Date Value Abnormality Reference (Units ) Status Glucose Point of Care 10/07/2024 21:39:34 252 Above high normal 70-120 (mg/dL) Final Performing Location
--- OUTSIDE RECORDS SUMMARY | 2024-11-04 03:17 | External Medical Summary ---
Author Name Unknown Address Unknown Organization K01:[place] [facility] [place] [address] [address] Laboratory Report Ordering Provider Test Date Status TESS HOGAN 10/08/2024 03:27:27 Final Observation Date Value Abnormality Reference (Units ) Status Phosphate 10/08/2024 03:27:27 7.3 Above high normal 2. 5-4.8 (mg/dL) Final Performing Location LABORATORY C - [address] [address]
--- OUTSIDE RECORDS SUMMARY | 2024-11-04 03:17 | External Medical Summary ---
Author Name Unknown Address Unknown Organization K01:LABORATORY [facility] - [address] [address] Laboratory Report Ordering Provider Test Date Status TESS HOGAN 10/07/2024 04:15:50 Final Observation Date Value Abnormality Reference (Units ) Status Magnesium 10/07/2024 04:15:50 2.3 1.5-2.6 (m g/dL) Final Performing Location LABORATORY [facility] - [address] [place] [address]
--- OUTSIDE RECORDS SUMMARY | 2024-11-04 03:17 | External Medical Summary ---
Author Name Unknown Address Unknown Organization : Laboratory Report Ordering Provider Test Date Status SOLANGE AGGARWAL 10/07/2024 17:28:59 Final Observation Date Value Abnormality Reference (Units ) Status Glucose Point of Care 10/07/2024 17:28:59 126 Above high normal 70-120 (mg/dL) Final Performing Location
--- OUTSIDE RECORDS SUMMARY | 2024-11-04 03:17 | External Medical Summary | Summary of Care ---
Author Name Unknown Organization [facility] Address [address] [place] [address] Phone [phone] Care Team Providers Care Wedding Planner Name Role Phone Luis Fernando Rojas MD Primary Care Provider [phone] Encounter Details Date Type Department Care Team (Late st Contact Info) Description 10/08/2024 Documentation Cardiology [facility] [place] [address] [place] [address] Ronda Vyas RN Allergies Active Allergy Reactions Criticality Noted Date Comments Salvador Inhibitors Other (Please comment),Cough High HyperKalemia documented as of this encounter (statuses as of 10/08/2024) Medications Melatonin 10 MG Tablet Take 12 [...] through DME) 7 Each 3 05/17/20 21 Suspended CPAP [...] goal of less than 7.0% ([facility]) Use 4 times daily with [...] Patient not taking.Informant: Patient, Reported on 10/05/2024 Carvedilol 12.5 MG Oral Tablet (Coreg)Indicatio ns:HTN, goal below 140/90 Take 1 Tablet by mouth in the morning and 1 Tablet before bedtime. 180 Tablet 4 5 8:06 AM EST 03/20/20 24 Suspended OneTouch Verio In Vitro Strip (Glucose Blood) To test blood sugar 4 times daily. 400 Strip 1 4 6:47 AM EDT 04/20/20 24 Suspended OneTouch Delica Lancets 33G To test blood sugar 4 times daily. 400 Each 1 4 6:47 AM EDT 04/20/20 24 Suspended OneTouch Verio w/Device Kit Use as directed. 1 Kit 4 6:47 AM EDT 04/20/20 24 Suspended Albuterol Sulfate 0.63 MG/3ML Inhalation Nebulization Solution (Accuneb) Inhale 1 Vial via nebulizer every 6 hours as needed for Wheezing. Suspended Benzonatate 100 MG Oral Capsule (Tessalon Perles) Take 1 Capsule by mouth 3 times a day as needed for Cough. Do not cut, crush, or chew. 50 Capsule 1 07/15/20 24 Suspended Additional Information Patient not taking.Reported on 10/05/2024 Gabapentin 300 MG Oral Capsule (Neurontin) Take 1 Capsule by mouth at bedtime. Follow up with your primary care provider for further management. 90 Capsule 3 5 2:09 PM EST 08/06/19 25 Suspended amLODIPine Besylate 5 MG Oral Tablet (Norvasc) TAKE ONE TABLET BY MOUTH EVERY DAY IN THE MORNING 90 Tablet 1 5 8:06 AM EST 08/05/19 25 Suspended Atorvastatin Calcium 40 MG Oral Tablet (Lipitor)Indicat ions:Dyslipidemi a, goal LDL below 100 Take 1 Tablet by mouth in the morning. 90 Tablet 1 5 3:02 PM EST 08/05/19 25 Suspended Colestipol HCl 1 GM Oral Tablet (Colestid) take 2 tablets by mouth at noon daily if needed for diarrhea 180 Tablet 3 5 3:46 PM EST 08/10/19 25 Suspended traMADol HCl 50 MG Oral Tablet (Ultram) Take 1 Tablet by mouth every 4 hours as needed for Pain, Severe. Suspended Insulin Glargine Solostar 100 UNIT/ML Subcutaneous Solution Pen-injector (Basaglar KwikPen)Indicati ons:Type 2 diabetes mellitus with hemoglobin A1c goal of less than 7.0% ([facility]) Inject 10 Units under the skin in the morning. 15 mL 4 08/26/19 25 Suspended Losartan Potassium 50 MG Oral Tablet (Cozaar)Indicati ons:End stage renal disease on dialysis (HCC),HTN, goal below 140/90 Take 1 Tablet by mouth in the morning. 90 Tablet 3 09/21/19 25 Suspended Additional Information Patient not taking.Reported on 10/05/2024 Insulin Lispro (1 Unit Dial) 100 UNIT/ML Subcutaneous Solution Pen-injector (HumaLOG KwikPen)Indicati ons:Type 2 diabetes mellitus with hemoglobin A1c goal of less than 7.0% ([facility]) Inject 12 units with breakfast, 12 units with lunch and 16 units with supper. 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 10/15/2022 MORFIN RESEARCH OTHER*[id number] 01/01/2022 S/P gastric bypass 01/01/[address] [...] 8:45 AM EDT): Gabapentin 600 mg at [facility] Assessment & Plan (05/07/2021 11:11 AM [...] as of this encounter (statuses as of 10/08/2024) Resolved Problems Problem Noted Date Diagnosed Date [...] long-term use 11/19/20182018 Overview (05/20/2019): Duplicate senior care (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 insulin [...] T-tube placement 04/16/2017 05/29/2017 [employer] Other*[id number] 04/13/2013 08/27/2016 Overview (04/13/2013): Study Title: Genomic Markers for Patients with Cardiovascular Disease Project # [id number] Carpenter 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 Hardwood 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: Siena Laws MD [phone] Hypertensive heart disease 03/25/2013 1 07/29/2016 Neuropathy, [...] as of this encounter (statuses as of 10/08/2024) Immunizations Name Administration Dates Next Due COVID-19 mRNA, LNP-s, No Pre serve, 2-Dose Series (Moderna) 04/09/2021,09/23/2020,08/19/2020 COVID-19, LNP-s, No Preserve , Espinoza-sucrose, Ages 12+ (Pfizer) 01/08/2022 COVID-19, MRNA-LNP, PF, 30 M CG/0.3 mL, 12 YRS AND ABOVE, IM (Bunkspeed-Comirnaty) 06/02/2024 HEPATITIS B VACCINE, RECOMB, 20 MCG/ML, ADULT (HEPLISAV-B) 09/05/2021,05/09/2021,04/04/2021,02/18 Hepatitis B, 20+ yrs 09/16/2018,04/14/2018,03/1104/11/2018 Pneumococcal Conjugate Vacci ne, 20-valent ([id number]) 06/22/2024,12/02/2023(Deferred: - pt states she's already received) [...] documented in this encounter Progress Notes * Ronda Vyas RN - 10/08/2024 8:01 AM EDT Images from the original note were not included. documented in this encounter Plan of Treatment Upcoming Encounters Date Type Department Care Team (Late st Contact Info) Description 10/14/2024 11:40 AM EDT Telemedicine Pharmacy, [address] [place] [address] [facility] [address] [place] [address] 11/02/2024 9:30 AM EDT Home Visit [facility] [address] [place] [address] Heidi Garcia RN [address] [place] [address] 11/25/2024 10:00 AM EDT Imaging Radiology [facility] [address] [place] [phone] 11/30/2024 10:00 AM EDT Nurse Only Nutrition & Weight Management, [facility] [address] [place] [phone] [place], Nurse Gi Nutrition [facility] [address] [place] [address] 12/09/2024 12:15 PM EDT Hospital Encounter OR [facility], Operating Room, [facility] - 4th Floor [address] [place] [phone] Himanshu Rivero, DO [address] [place] [address] 12/09/2024 12:15 PM EDT - 12/09/2024 12:56 PM EDT Surgery OR [facility], Operating Room, [facility] - 4th Floor [address] [place] [address] Himanshu Rivero, [address] [place] [address] COLONOSCOPY FLEXIBLE PROXIMAL DIAGNOSTIC 12/21/2024 10:30 AM EDT Office Visit Gastroenterology, [facility] [address] [place] [phone] Emi Queen CRNP [address] [place] [address] 03/10/2025 1:20 PM EDT Office Visit [facility]ologyS[facility] [address] [place] [phone] Joanne Parks PA-C [address] [place] [address] [place] [address] Scheduled Procedures Name Priority Associated Diagnoses Date/Ti [...] this encounter Medical Devices Implanted Type Area Yard Coordinator Device Identifier Shelf Expiration Date Model / Serial / Lot Coil Vortex 35 Pltinm [id number] - [id number] Implanted:Qty: 1 on 11/27/2021 by Sterling Cates MD at OR [facility] Right: Upper Arm [employer] : NEURO INTR [id number] 08/15/2024 [id number] / / [id number] Coil Vortex 35 Pltinm [id number] - [id number] Implanted:Qty: 1 on 11/27/2021 by Sterling Cates MD at OR [facility] Right: Upper Arm [employer] : NEURO INTR [id number] 08/15/2024 [id number] / / [id number] Coil Vortex 35 Pltinm [id number] - [id number] Implanted:Qty: 1 on 11/27/2021 by Sterling Cates MD at OR [facility] Right: Upper Arm [employer] : NEURO INTR [id number] 08/15/2024 [id number] / / [id number] Coil Vortex 35 Pltinm [id number] - [id number] Implanted:Qty: 1 on 11/27/2021 by Sterling Cates MD at OR [facility] Right: Upper Arm [employer] : NEURO INTR [id number] 05/16/2024 [id number] / [id number] Azur 35 Detachable 5mm 11cm - [id number] Implanted:Qty: 1 on 03/19/2022 by Jose Devine MD at OR [facility] Right: Wrist [employer] [id number] 10/18/2025 [id number] / / [id number] Azur 35 Detachable 5mm 11cm - [id number] Implanted:Qty: 1 on 03/19/2022 by Jose Devine MD at OR [facility] Right: Wrist [employer] [id number] 06/19/2026 [id number] / / [id number] Mesh Flat Sheet 10x14 [id number] - [id number] Implanted:Qty: 1 on 12/11/2022 by Eros Dash MD at OR [facility] N/A: Abdomen CR BARD : DAVOL [id number] 06/17/2027 [id number] / / [id number] Defib Hamilton Mri Galvanizer-D - [id number] Implanted:Qty: 1 on 10/07/2024 by Arianne Carrizales IV, MD at CARDIAC LABS [facility] [employer] : CRM 07/03/2025 [id number] / [id number] / [id number] Envelope Antibacteral Tyrx - [id number] Implanted:Qty: 1 on 10/07/2024 by Arianne Carrizales IV, MD at CARDIAC LABS [facility] [employer] : [facility] [id number] 06/02/2025 [id number] / / [id number] Lead Defib Sprint 6935m-62 - [id number] Implanted:Qty: 1 on 10/07/2024 by Arianne Carrizales IV, MD at CARDIAC LABS [facility] [employer] : [facility] [id number] 08/03/2026 [id number] / [id number] / [id number] documented as of this encounter Additional Health Concerns Infection Onset Date Last Indicated Resolved Time Enterovirus (resp)/Rhinoviru s Comment:Per Dr. Garsia documentation, pt rhinovirus+ 10/04 at [facility] 10/04/2024 10/06/2024 documented as of this encounter Advance Directives Documents on File Type Date Recorded Patient Violent Crimes Detective Expl anation POLST 11/13/2020 POLST PENNSYLVA VALERIA [...] Relationship Healthcare Agent [facility] Communication Zhen Finley Spouse Health Care Agent Care Teams Wedding Planner Relationship Specialty Start Date End Date Luis Fernando Rojas MD [address] [place] [address] PCP - General Family Medicine 09/23/16 documented as of this encounter
--- OUTSIDE RECORDS SUMMARY | 2024-11-04 03:17 | External Medical Summary | Summary of Care ---
Author Name Unknown Organization [facility] Address [address] [place] [address] Phone [phone] Care Team Providers Care Online Banking Specialist Name Role Phone Luis Fernando Rojas MD Primary Care Provider [phone] Reason for Visit * Auth/Cert Specialty Diagnoses / Procedures Referred By Mikey t Referred To Contact Diagnoses V-tach (HCC) VTAC, syncope Jinnyosjw, Honorio Centeno, DO [address] [place] [address] Phone: tel: fax: Admissions, [facility] [place] [address] [place] [address] Referral ID Status Reason Start Date Expiration Date Visits Re quested Visits Authorized [id number] Encounter Details Date Type Department Care Team (Latest Contact Info) Description 10/06/2024 11:41 AM EDT - 10/06/2024 11:59 PM EDT Hospital Encounter Cardiac Studies [facility] [address] [place] [address] Discharge Disposition: Home - Self Care Allergies Active Allergy Reactions Criticality Noted Date Comments Salvador Inhibitors Other (Please comment),Cough High HyperKalemia documented as of this encounter (statuses as of 10/07/2024) Medications Melatonin 10 MG Tablet Take 12 [...] [place]) 7 Each 3 05/17/20 21 Suspended CPAP [...] 5 8:06 AM EST 03/20/20 24 Suspended Oyster Verio In Vitro Strip (Glucose Blood) To test blood sugar 4 times daily. 400 Strip 1 4 6:47 AM EDT 04/20/20 24 Suspended Oyster DelSaberr Lancets 33G To test blood sugar 4 times daily. 400 Each 1 4 6:47 AM EDT 04/20/20 24 Suspended Driver [employer] Verio w/Device Kit Use as directed. 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 Magallanes. M-W-Briana from 1-5. 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 11/19/2018 [...] T-tube placement 04/16/2017 05/29/2017 [employer] Other*[id number] 04/13/2013 08/27/2016 Overview (04/13/2013): Study Title: Genomic Markers for Patients with Cardiovascular Disease Project # [id number] Social Media Project Manager: Siena Laws MD [phone] Hypertensive heart disease 03/25/2013 1 07/29/2016 Neuropathy, [...] as of this encounter (statuses as of 10/07/2024) Immunizations Name Administration Dates Next Due COVID-19 mRNA, LNP-s, No Pre serve, 2-Dose Series (Moderna) 04/09/2021,09/23/2020,08/19/2020 COVID-19, LNP-s, No Preserve , Espinoza-sucrose, Ages 12+ (Pfizer) 01/08/2022 COVID-19, MRNA-LNP, PF, 30 M CG/0.3 mL, 12 YRS AND ABOVE, IM (PFIZER-Comirnaty) 06/02/2024 HEPATITIS B VACCINE, RECOMB, 20 MCG/ML, ADULT (HEPLISAV-B) 09/05/2021,05/09/2021,04/04/2021,02/18 Hepatitis B, 20+ yrs 09/16/2018,04/14/2018,03/1104/11/2018 Pneumococcal Conjugate Vacci ne, 20-valent ([id number]) 06/22/2024,12/02/2023(Deferred: - pt states she's already received) [...] Description 10/14/2024 11:40 AM EDT Telemedicine Pharmacy, [facility] [address] [place] [address] [place] [address] [place] [address] 10/20/2024 2:30 PM EDT Cardiac Studies Cardiology [facility] [address] [place] [address] Clinic, Heart Rhythm Device [address] [place] [address] 11/02/2024 9:30 AM EDT Home Visit [facility] [address] [place] [address] Heidi Garcia, RN [address] [place] [address] 11/25/2024 10:00 AM EDT Imaging Radiology [facility] [address] [place] [phone] 11/30/2024 10:00 AM EDT Nurse Only Nutrition & Weight Management, [facility] [address] [place] [phone] [facility], Nurse Gi Nutrition [facility] [address] [place] [address] 12/09/2024 12:15 PM EDT Hospital Encounter OR [facility], Operating Room, [facility] - 4th Floor [address] [place] [phone] Himanshu Rivero, DO [address] [place] [address] 12/09/2024 12:15 PM EDT - 12/09/2024 12:56 PM EDT Surgery OR [facility], Operating Room, [facility] - 4th Floor [address] [place] [address] Himanshu Rivero, DO [address] [place] [address] COLONOSCOPY FLEXIBLE PROXIMAL DIAGNOSTIC 12/21/2024 10:30 AM EDT Office Visit Gastroenterology, [facility] [address] [place] [phone] Emi Queen CRNP [address] [place] [address] 03/10/2025 1:20 PM EDT Office Visit Dermatology [address] [place] [phone] Joanne Parks PA-C [address] [place] [address] [place] [address] Scheduled Procedures Name Priority Associated Diagnoses Date/Ti me BIVENTRICULAR DEFIBRILLATOR Ventricular tachycardia (HCC) 10/07/2024 2:10 PM EDT COLONOSCOPY FLEXIBLE PROXIMAL DIAGNOSTIC History [...] this encounter Medical Devices Implanted Type Area External Auditor Device Identifier Shelf Expiration Date Model / Serial / Lot Coil Vortex 35 Pltinm [id number] - [id number] Implanted:Qty: 1 on 11/27/2021 by Sterling Cates MD at [place] [facility] [place] Right: Upper Arm [employer] : NEURO INTR [id number] 08/15/2024 [id number] Coil Vortex 35 Pltinm [id number] - [id number] Implanted:Qty: 1 on 11/27/2021 by Sterling Cates MD at OR [facility] [place] Right: Upper Arm [employer] : NEURO INTR [id number] 08/15/2024 [id number] Coil Vortex 35 Pltinm [id number] - [id number] Implanted:Qty: 1 on 11/27/2021 by Sterling Cates MD at OR [facility] [place] Right: Upper Arm [employer] : NEURO INTR [id number] 08/15/2024 [id number] Coil Vortex 35 Pltinm [id number] - [id number] Implanted:Qty: 1 on 11/27/2021 by Sterling Cates MD at OR [facility] [place] Right: Upper Arm [employer] : NEURO INTR [id number] 05/16/2024 [id number] Azur 35 Detachable 5mm 11cm - [id number] Implanted:Qty: 1 on 03/19/2022 by Jose Devine MD at OR [facility] [place] Right: Wrist [employer] [id number] 10/18/2025 [id number] / / [id number] Azur 35 Detachable 5mm 11cm - [id number] Implanted:Qty: 1 on 03/19/2022 by Jose Devine MD at OR [facility] [place] Right: Wrist [employer] [id number] 06/19/2026 [id number] / / [id number] Mesh Flat Sheet 10x14 [id number] - [id number] Implanted:Qty: 1 on 12/11/2022 by Eros Dash MD at OR [facility] [place] N/A: Abdomen CR BARD : DAVOL [id number] 06/17/2027 [id number] / / [id number] documented as of this encounter Procedures Procedure Name Priority Date/Time Associated Diagnosis Comments ECHO, COMPLETE (2D), TRANS-THORACIC Routine 10/06/2024 11:48 AM EDT Cardiac arrhythmia, unspecified documented in this encounter Visit Diagnoses Diagnosis [...] sleep apnea (adult) (pediatric) Diarrhea, unspecified type Pulmonary hypertension, unspecified (HCC)- Primary Ventricular tachycardia, non-sustained (HCC) Paroxysmal ventricular tachycardia History of colonic polyps Personal history of colonic polyps Diarrhea documented in this encounter Administered Medications Inactive Administered Medications - up to 3 most recent administrations Medication Order MAR Action Action Date Dose Rate Site perflutren lipid microsphere inj SUSP 1.956 mg 1.956 mg, Intravenous, ONCE PRN Other, For Echo Only - Suboptimal Echo Images, Starting on Fri10/06/24 at 1148, Until Fri10/06/24 at 1347, For 2 hours, Administer IVP over 45 seconds, Cardiac Studies_HODHOVIndications:Pulmo nary hypertension, unspecified (HCC),Ventricular tachycardia, non-sustained (HCC) Given 10/06/2024 11:48 AM EDT 1.956 mg documented in this encounter Additional Health Concerns Infection Onset Date Last Indicated Resolved Time Enterovirus (resp)/Rhinoviru s Comment:Per Dr. Garsia documentation, pt rhinovirus+ 10/04 at [facility] 10/04/2024 10/06/2024 documented as of this encounter Advance Directives Documents on File Type Date Recorded Patient Ophthalmic Nurse Expl anation POLST 11/13/2020 POLST PENNSYLVA VALERIA [...] Finley Spouse Health Care Agent Care Teams Online Banking Specialist Relationship Specialty Start Date End Date Luis Fernando Rojas MD [address] [address] PCP - General Family Medicine 09/23/16 documented as of this encounter
--- OUTSIDE RECORDS SUMMARY | 2024-11-04 03:17 | External Medical Summary ---
Author Name Unknown Address Unknown Organization : Laboratory Report Ordering Provider Test Date Status SOLANGE AGGARWAL 10/08/2024 08:23:05 Final Observation Date Value Abnormality Reference (Units ) Status Glucose Point of Care 10/08/2024 08:23:05 162 Above high normal 70-120 (mg/dL) Final Performing Location
--- OUTSIDE RECORDS SUMMARY | 2024-11-04 03:17 | External Medical Summary ---
Author Name Unknown Address Unknown Organization K01:[facility] [address] [place] [address] Laboratory Report Ordering Provider Test Date Status TESS HOGAN 10/08/2024 03:27:27 Final Observation Date Value Abnormality Reference (Units ) Status Magnesium 10/08/2024 03:27:27 2.5 1.5-2.6 (m g/dL) Final Performing Location [facility] [address] [place] [address]
--- OUTSIDE RECORDS SUMMARY | 2024-11-04 03:17 | External Medical Summary ---
Author Name Unknown Address Unknown Organization K01:[facility] [address] Laboratory Report Ordering Provider Test Date Status TESS HOGAN 10/07/2024 04:15:50 Final Observation Date Value Abnormality Reference (Units ) Status WBC, Total 10/07/2024 04:15:50 12.17 Above high normal 4.00-10.80 (K/uL) Final RBC 10/07/2024 04:15:50 2.80 3.85-5.15 (M/uL) Final Hemoglobin 10/07/2024 04:15:50 8.4 Below low normal 12.0-15.3 (g/dL) Final HCT 10/07/2024 04:15:50 27.9 Below low normal 36.0-45.2 (%) Final MCV 10/07/2024 04:15:50 99.6 81.5-97.5 (fL) Final MCH 10/07/2024 04:15:50 30.0 27.0-34.0 (pg) Final MCHC 10/07/2024 04:15:50 30.1 32.0-36.0 (g/dL) Final RDW 10/07/2024 04:15:50 16.6 11.5-15.5 (%) Final Platelets 10/07/2024 04:15:50 238 140-400 (K/uL) Final MPV 10/07/2024 04:15:50 10.2 6.6-11.1 (fL) Final Nucleated erythrocytes/100 leukocytes [Ratio] in Blood by Automated count 10/07/2024 04:15:50 0 <=0 (/100 WBCs) Final Performing Location [facility] [address] [facility] [address] [address]
--- OUTSIDE RECORDS SUMMARY | 2024-11-04 03:17 | External Medical Summary ---
Author Name Unknown Address Unknown Organization K01:[facility]ATORY [facility] - [address] [place] [address] Laboratory Report Ordering Provider Test Date Status TESS HOGAN 10/07/2024 04:15:50 Final Observation Date Value Abnormality Reference (Units ) Status Phosphate 10/07/2024 04:15:50 5.9 Above high normal 2. 5-4.8 (mg/dL) Final Performing Location [facility] [address] [place] [address]
--- OUTSIDE RECORDS SUMMARY | 2024-11-04 03:17 | External Medical Summary ---
Author Name Unknown Address Unknown Organization : Laboratory Report Ordering Provider Test Date Status SOLANGE AGGARWAL 10/07/2024 06:17:36 Final Observation Date Value Abnormality Reference (Units ) Status Glucose Point of Care 10/07/2024 06:17:36 133 Above high normal 70-120 (mg/dL) Final Performing Location
--- OUTSIDE RECORDS SUMMARY | 2024-11-04 03:17 | External Medical Summary ---
Author Name Unknown Address Unknown Organization K01:[facility] - [address] [place] [address] Laboratory Report Ordering Provider Test Date Status TESS HOGAN 10/07/2024 16:44:09 Final Observation Date Value Abnormality Reference (Units ) Status Magnesium 10/07/2024 16:44:09 2.3 1.5-2.6 (m g/dL) Final Performing Location [facility] - [address] [place] [address]
--- OUTSIDE RECORDS SUMMARY | 2024-11-04 03:17 | External Medical Summary ---
Author Name Unknown Address Unknown Organization K01:LABORATORY [facility] [place] - [facility] [address] [facility] [address] [facility] [address] Laboratory Report Ordering Provider Test Date Status TESS HOGAN 10/07/2024 04:15:50 Final Observation Date Value Abnormality Reference (Units ) Status BUN 10/07/2024 04:15:50 42 Above high normal 6-20 (mg/dL) Final Creatinine 10/07/2024 04:15:50 8.1 Above high normal 0.5-1.0 (mg/dL) Final Glomerular filtration rate/1.73 sq M.predicted [Volume Rate/Area] in Serum, Plasma or Blood by Creatinine-based formula (CKD-EPI) 10/07/2024 04:15:50 5 Below low normal >=60 (mL/min) Final eGFR is calculated based on the CKD-EPI 2020 equation. Sodium 10/07/2024 04:15:50 131 Below low normal 135 -146 (mmol/L) Final Potassium 10/07/2024 04:15:50 4.7 3.5-5.1 (m mol/L) Final Cl 10/07/2024 04:15:50 91 Below low normal 98- 107 (mmol/L) Final CO2 10/07/2024 04:15:50 25 22-32 (mmo l/L) Final Anion gap 10/07/2024 04:15:50 15 7-15 (mmol /L) Final Glucose 10/07/2024 04:15:50 149 Above high normal 70 -120 (mg/dL) Final Calcium 10/07/2024 04:15:50 8.8 8.4-10.2 ( mg/dL) Final Performing Location LABORATORY [facility] [place] - [address] [place] [address]
--- OUTSIDE RECORDS SUMMARY | 2024-11-04 03:17 | External Medical Summary ---
Author Name Unknown Address Unknown Organization K01:[facility]ORY [facility] [place] - [facility] [place] [facility] [place] [facility] [address] Laboratory Report Ordering Provider Test Date Status TESS HOGAN 10/07/2024 16:44:09 Final Observation Date Value Abnormality Reference (Units ) Status BUN 10/07/2024 16:44:09 46 Above high normal 6-20 (mg/dL) Final Creatinine 10/07/2024 16:44:09 8.7 Above high normal 0.5-1.0 (mg/dL) Final Glomerular filtration rate/1.73 sq M.predicted [Volume Rate/Area] in Serum, Plasma or Blood by Creatinine-based formula (CKD-EPI) 10/07/2024 16:44:09 5 Below low normal >=60 (mL/min) Final eGFR is calculated based on the CKD-EPI 2020 equation. Sodium 10/07/2024 16:44:09 132 Below low normal 135 -146 (mmol/L) Final Potassium 10/07/2024 16:44:09 5.2 Above high normal 3. 5-5.1 (mmol/L) Final Cl 10/07/2024 16:44:09 91 Below low normal 98- 107 (mmol/L) Final CO2 10/07/2024 16:44:09 24 22-32 (mmo l/L) Final Anion gap 10/07/2024 16:44:09 17 Above high normal 7- 15 (mmol/L) Final Glucose 10/07/2024 16:44:09 124 Above high normal 70 -120 (mg/dL) Final Calcium 10/07/2024 16:44:09 8.5 8.4-10.2 ( mg/dL) Final Performing Location LAB[facility]ATORY [facility] [place] - [facility] [place] [facility] [place] [address] [facility] [address]
--- OUTSIDE RECORDS SUMMARY | 2024-11-04 03:17 | External Medical Summary | Summary of Care ---
Author Name Unknown Organization [facility] Address [address] [place] [address] Phone [phone] Care Team Providers Care Corduroy Cutting Supervisor Name Role Phone Luis Fernando Rojas MD Primary Care Provider [phone] Encounter Details Date Type Department Care Team (Late st Contact Info) Description 10/07/2024 Result Scan Unspecified Department Ulises Stevenson, DO [address] [place] [address] <No scans attached> Allergies Active [...] than 7.0% ([facility]) Use 4 times daily with insulin [...] 7.0% ([facility]) Inject 10 Units under the skin [...] 7.0% ([facility]) Inject 12 units with breakfast, 12 [...] 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 10/15/2022 [facility] OTHER*[id number] 01/01/2022 S/P gastric bypass 01/01/[address] [...] Insulin long-term use 11/19/20182018 Overview (05/20/2019): Duplicate residential (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 insulin 11/19/2018 10/08/2022 Morbid [...] T-tube placement 04/16/2017 05/29/2017 [employer] Other*[id number] 04/13/2013 08/27/2016 Overview (04/13/2013): Study Title: Genomic Markers for Patients with Cardiovascular Disease Project # [id number] Dramatic Coach: Siena Laws MD [phone] Hypertensive heart disease 03/25/2013 1 07/29/2016 Neuropathy, [...] yrs 09/16/2018,04/14/2018,03/1104/11/2018 Pneumococcal Conjugate Vacci ne, 20-valent ([id number]) 06/22/2024,12/02/2023(Deferred: - pt states she's already received) [...] Description 10/14/2024 11:40 AM EDT Telemedicine Pharmacy, [facility] [address] [place] [address] [facility] [address] [place] [address] 10/20/2024 2:30 PM EDT Cardiac Studies Cardiology [facility] [address] [place] [address] Clinic, Heart Rhythm Device [address] [place] [address] 11/02/2024 9:30 AM EDT [facility] [address] [place] [address] Heidi Garcia, RN [address] [facility] [place] [address] 11/25/2024 10:00 AM EDT Imaging Radiology [facility] [address] [place] [address] 11/30/2024 10:00 AM EDT Nurse Only Nutrition & Weight Management, [facility] [address] [phone] Boni, Nurse Gi Nutrition [facility] [address] [place] [address] 12/09/2024 12:15 PM EDT Hospital Encounter OR [facility], Operating Room, [facility] - 4th Floor [address] [facility] [place] [phone] Himanshu Rivero, DO [address] [place] [address] 12/09/2024 12:15 PM EDT - 12/09/2024 12:56 PM EDT Surgery OR [facility], Operating Room, [facility] - 4th Floor [address] [place] [phone] Himanshu Rivero, [address] [place] [address] COLONOSCOPY FLEXIBLE PROXIMAL DIAGNOSTIC 12/21/2024 10:30 AM EDT Office Visit Gastroenterology, [facility] [address] [place] [phone] Emi Queen CRNP [address] [place] [address] 03/10/2025 1:20 PM EDT Office Visit [facility] [address] [phone] Joanne Parks PA-C [address] [place] [address] [place] [address] Scheduled Procedures Name Priority Associated Diagnoses Date/Ti [...] this encounter Medical Devices Implanted Type Area Insecticide Expert Device Identifier Shelf Expiration Date Model / Serial / Lot Coil Vortex 35 Pltinm [id number] - [id number] Implanted:Qty: 1 on 11/27/2021 by Sterling Cates MD at OR [facility] Right: Upper Arm [employer] : NEURO INTR [id number] 08/15/2024 [id number] / / [id number] Coil Vortex 35 Pltinm [id number] - [id number] Implanted:Qty: 1 on 11/27/2021 by Sterling Cates MD at OR [facility] Right: Upper Arm [employer] : NEURO INTR [id number] 08/15/2024 [id number] / / [id number] Coil Vortex 35 Pltinm [id number] - [id number] Implanted:Qty: 1 on 11/27/2021 by Sterling Cates MD at OR [facility] Right: Upper Arm [employer] : NEURO INTR [id number] 08/15/2024 [id number] / / [id number] Coil Vortex 35 Pltinm [id number] - [id number] Implanted:Qty: 1 on 11/27/2021 by Sterling Cates MD at OR [facility] Right: Upper Arm [employer] : NEURO INTR [id number] 05/16/2024 [id number] / / [id number] Azur 35 Detachable 5mm 11cm - [id number] Implanted:Qty: 1 on 03/19/2022 by Jose Devine MD at OR [facility] Right: Wrist [id number] MEDHAT [id number] 10/18/2025 [id number] / / [id number] Azur 35 Detachable 5mm 11cm - [id number] Implanted:Qty: 1 on 03/19/2022 by Jose Devine MD at OR [facility] Right: Wrist [employer] [id number] 06/19/2026 [id number] / / [id number] Mesh Flat Sheet 10x14 [id number] - [id number] Implanted:Qty: 1 on 12/11/2022 by Eros Dash MD at OR [facility] N/A: Abdomen CR BARD : DAVOL [id number] 06/17/2027 [id number] / / [id number] Defib [place] Mri Parcel Post Carrier-D - [id number] Implanted:Qty: 1 on 10/07/2024 by Arianne Carrizales IV, MD at CARDIAC LABS [facility] [employer] : CRM 07/03/2025 [id number] / [id number] / [id number] Envelope Antibacteral Tyrx - [id number] Implanted:Qty: 1 on 10/07/2024 by Arianne Carrizales IV, MD at CARDIAC LABS [facility] [employer] : COMMUNITY HEALTH [id number] 06/02/2025 [id number] / / [id number] Lead Defib Sprint 6935m-62 - [id number] Implanted:Qty: 1 on 10/07/2024 by Arianne Carrizales IV, MD at CARDIAC LABS [facility] [employer] : COMMUNITY HEALTH [id number] 08/03/2026 [id number] 62 / [id number] / [id number] documented as of this encounter Procedures Procedure Name Priority Date/Time Associated Diagnosis Comments CARDIOLOGY SCANNED RESULT 10/07/2024 documented in this encounter Results * CARDIOLOGY SCANNED RESULT (10/07/2024) 10/07/2024 us Ulises Stevenson DO OTHER Final Result documented in this encounter Additional Health Concerns Infection Onset Date Last Indicated Resolved Time Enterovirus (resp)/Rhinoviru s Comment:Per Dr. Garsia documentation, pt rhinovirus+ 10/04 at [facility] 10/04/2024 10/06/2024 documented as of this encounter Advance Directives Documents on File Type Date Recorded Patient Production Control Clerk Saranya FIGUEROA 11/13/2020 POLST DOWNEY VALERIA ORDERS [...] Agents on File Name Relationship Healthcare Agent [facility] Communication Zhen Finley Spouse Health Care Agent Care Teams Corduroy Cutting Supervisor Relationship Specialty Start Date End Date Luis Fernando Rojas MD [address] [place] [address] PCP - General Family Medicine 09/23/16 documented as of this encounter
--- OUTSIDE RECORDS SUMMARY | 2024-11-04 03:17 | External Medical Summary ---
Author Name Unknown Address Unknown Organization K01:LABORATORY [facility] [place] - [facility] [address] [facility] [address] [facility] [address] Laboratory Report Ordering Provider Test Date Status TESS HOGAN 10/08/2024 03:27:27 Final Observation Date Value Abnormality Reference (Units ) Status WBC, Total 10/08/2024 03:27:27 10.76 4.00-10.80 (K/uL) Final RBC 10/08/2024 03:27:27 2.79 3.85-5.15 (M/uL) Final Hemoglobin 10/08/2024 03:27:27 8.3 Below low normal 12.0-15.3 (g/dL) Final HCT 10/08/2024 03:27:27 27.9 Below low normal 36.0-45.2 (%) Final MCV 10/08/2024 03:27:27 100.0 81.5-97.5 (fL) Final MCH 10/08/2024 03:27:27 29.7 27.0-34.0 (pg) Final MCHC 10/08/2024 03:27:27 29.7 32.0-36.0 (g/dL) Final RDW 10/08/2024 03:27:27 16.7 11.5-15.5 (%) Final Platelets 10/08/2024 03:27:27 217 140-400 (K/uL) Final MPV 10/08/2024 03:27:27 9.9 6.6-11.1 (fL) Final Nucleated erythrocytes/100 leukocytes [Ratio] in Blood by Automated count 10/08/2024 03:27:27 0 <=0 (/100 WBCs) Final Performing Location LABORATORY [facility] [place] - [facility] [address] [facility] [address]
--- OUTSIDE RECORDS SUMMARY | 2024-11-04 03:18 | External Medical Summary | Summary of Care ---
Author Name Unknown Organization [facility] Address [address] [place] [address] Phone [phone] Care Team Providers Care Central Office Frame Wirer Name Role Phone Luis Fernando Rojas MD Primary Care Provider [phone] Reason for Visit * Reason Onset Date Comments [facility]: Maintenance 10/05/2024 Encounter Details Date Type Department Care Team (Late st Contact Info) Description 10/05/2024 10:00 AM EDT Scheduled Telephone [facility], [facility] [address] [place] [address] [facility], Nurse [facility] [address] [place] [address] Allergies Active Allergy Reactions Criticality Noted Date [...] 5 8:57 AM EST 03/18/20 24 Suspended Carvedilol 12.5 MG Oral Tablet (Coreg)Indicatio ns:HTN, [...] Suspended Additional Information Patient not taking.Reported on 09/16/2024 [...] 7.0% ([facility]) Inject 10 Units under the skin in the morning. 15 mL 4 08/26/19 25 Suspended Losartan Potassium 50 MG Oral Tablet (Cozaar)Indicati ons:End stage renal disease on dialysis ([facility]),HTN, goal below 140/90 Take 1 Tablet by mouth in the morning. 90 Tablet 3 09/21/19 25 Suspended Insulin Lispro (1 Unit Dial) 100 UNIT/ML Subcutaneous Solution Pen-injector (HumaLOG KwikPen)Indicati ons:Type 2 diabetes mellitus with hemoglobin A1c goal of less than 7.0% ([facility]) Inject 12 units with breakfast, 12 units with lunch and 16 units with supper. Max dose of 40 units per day 45 mL 4 10/05/19 25 Suspended Hospital, Clinic, or Other Facility Administered Medication Ordered Dose Route Frequency Start Date End Date Status vitamin b-12 (Cyanocobalamin) inj 1,000 mcgIndications:S/P gastric bypass 1000 mcg IM [id number] 10/15/2022 07/19/2025 Active vitamin b-12 (Cyanocobalamin) inj 1,000 mcgIndications:Morbid obesity with BMI of 40.0-44.9, adult ([facility]),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 [id number] 10/17/2023 12/11/19 25 Active documented as of this encounter (statuses as of 10/05/2024) Active Problems Problem Noted Date Diagnosed Date Ventricular tachycardia, non-sustained Major depressive disorder, single [...] detachments not involving maculae 10/15/2022 [facility] OTHER*[id number] 01/01/2022 S/P gastric bypass 01/01/2022 [address] AV [...] Assessment & Plan (05/07/2021 11:01 AM EDT[facility]. [facility]. Renae-W-F from 1-5. Has dialysis catheter in the [...] 8:45 AM EDT): Gabapentin 600 mg at [facility] Assessment & Plan (05/07/2021 11:11 AM EDT): [...] T-tube placement 04/16/2017 05/29/2017 [employer] [facility] Other*[id number] 04/13/2013 08/27/2016 Overview (04/13/2013): Study Title: Genomic Markers for Patients with Cardiovascular Disease Project # [id number] Weigh Machine Operator: Siena Laws MD [phone] Hypertensive heart disease 03/25/2013 1 07/29/2016 Neuropathy, [...] yrs 09/16/2018,04/14/2018,03/1104/11/2018 Pneumococcal Conjugate Vacci ne, 20-valent ([id number]) 06/22/2024,12/02/2023(Deferred: - pt states she's already received) [...] Honorio Joiner RN documented in this encounter Miscellaneous Notes * Telephone Encounter - Alyssa Ponce RN - 10/05/2024 12:53 PM EDT [facility] Nurse Follow-Up Call [facility] Subprogram: Short-Term Management (less than 3 months) Follow Up Call Type: 24 hour follow up Acute issue requiring follow-up call: Other: follow up on fainting spells Objective: 10/04/2024 6:52 PM 09/21/2024 10:39 AM 09/16/2024 11:00 AM 09/16/2024 10:45 AM 09/16/2024 10:30 AM VITALS ACROSS ENCOUNTERS BP 138/76 121/52 123/56 111/44 Pulse 78 75 69 68 63 Weight 103 kg BMI 38.96 BMI 38.98 kg/m2 Subjective: Condition Status: Per chart review the pt was in [facility] ED today and is being transferred [facility] Pt has pacemaker for sick sinus syndrome, presents to ED with syncopal episodes. Found to have runs of VTach, pt discussed with cardiology at [facility], recommended transfer to [facility] for possible cath. Pt matheus bhatia, is a dialysis pt, had dialysis yesterday will be due again Friday. Requesting transfer to [facility] for same. Current Concerns: As above Disposition: [place] [facility] Care Team for further advice Future Visits Scheduled: Future Appointments-next 60 days Date/Time Provider Specialty Dept Phone 10/14/2024 11:40 AM [facility] Arrive at: Patient's Home [phone] 11/02/2024 9:30 AM Heidi Garcia, RN [facility] [phone] 11/25/2024 10:00 AM (Arrive by 9:45 AM) [facility] ADALID FLETCHER Radiology [phone] 11/30/2024 10:00 AM (Arrive by 9:45 AM) Nurse Boni Gi Nutrition [facility] Gastroenterology [phone] 12/21/2024 10:30 AM (Arrive by 10:15 AM) Emi Queen CRNP Gastroenterology [phone] 03/10/2025 1:20 PM (Arrive by 1:05 PM) Joanne Parks PA-C Dermatology [phone] Alyssa Ponce, JOHN documented in this encounter Plan of Treatment Upcoming Encounters Date Type Department Care Team (Late st Contact Info) Description 10/14/2024 11:40 AM EDT Telemedicine Pharmacy, [address] [phone] [facility] [address] [place] [address] [place] [address] 11/02/2024 9:30 AM EDT Home Visit [facility], [facility] [address] [facility] [place] [address] Heidi Garcia, RN [address] [place] [address] 11/25/2024 10:00 AM EDT Imaging Radiology [facility] [address] [place] [phone] 11/30/2024 10:00 AM EDT Nurse Only Nutrition & Weight Management, [facility] [address] [place] [address] [facility], Nurse Gi Nutrition [facility] [address] [place] [address] 12/09/2024 12:15 PM EDT Hospital Encounter OR [facility], Operating Room, [facility] - 4th Floor [address] [place] [address] Himanshu Rivero, DO [address] [place] [address] 12/09/2024 12:15 PM EDT - 12/09/2024 12:56 PM EDT Surgery OR [facility], Operating Room, [facility] - 4th Floor [address] [place] [address] Himanshu Rivero, DO [address] [place] [address] COLONOSCOPY FLEXIBLE PROXIMAL DIAGNOSTIC 12/21/2024 10:30 AM EDT Office Visit Gastroenterology, [facility] [address] [place] [phone] Emi Queen CRNP [address] [place] [address] 03/10/2025 1:20 PM EDT Office Visit Dermatology, [address] [place] [phone] Joanne Parks PA-C [address] [place] [address] [place] [address] Scheduled Procedures Name Priority Associated Diagnoses Date/Ti [...] this encounter Medical Devices Implanted Type Area Diesel Crane Operator Device Identifier Shelf Expiration Date Model / Serial / Lot Coil Vortex 35 Pltinm [id number] - [id number] Implanted:Qty: 1 on 11/27/2021 by Sterling Cates MD at OR [facility] Right: Upper Arm [employer] : NEURO INTR [id number] 08/15/2024 [id number] / / [id number] Coil Vortex 35 Pltinm [id number] - [id number] Implanted:Qty: 1 on 11/27/2021 by Sterling Cates MD at OR [facility] Right: Upper Arm [employer] : NEURO INTR [id number] 08/15/2024 [id number] / / [id number] Coil Vortex 35 Pltinm 024555 - [id number] Implanted:Qty: 1 on 11/27/2021 by Sterling Cates MD at OR [facility] Right: Upper Arm [employer] : NEURO INTR [id number] 08/15/2024 [id number] / / [id number] Coil Vortex 35 Pltinm [id number] - [id number] Implanted:Qty: 1 on 11/27/2021 by Sterling Cates MD at OR [facility] Right: Upper Arm [employer] : NEURO INTR [id number] 05/16/2024 [id number] / / [id number] Azur 35 Detachable 5mm 11cm - [id number] Implanted:Qty: 1 on 03/19/2022 by Jose Devine MD at OR [facility] Right: Wrist [employer] [id number] 10/18/2025 [id number] / / [id number] Azur 35 Detachable 5mm 11cm - [id number] Implanted:Qty: 1 on 03/19/2022 by Jose Devine MD at OR [facility] Right: Wrist [employer] [id number] 06/19/2026 [id number] / / [id number] Mesh Flat Sheet 10x14 [id number] - [id number] Implanted:Qty: 1 on 12/11/2022 by Eros Dash MD at OR [facility] N/A: Abdomen CR BARD : DAVOL [id number] 06/17/2027 [id number] / / [id number] documented as of this encounter Advance Directives Documents on File Type Date Recorded 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
--- OUTSIDE RECORDS SUMMARY | 2024-11-04 03:18 | External Medical Summary ---
Author Name Unknown Address Unknown Organization : Laboratory Report Ordering Provider Test Date Status SHREE GARSIA 10/05/2024 22:00:19 Final Observation Date Value Abnormality Reference (Units ) Status Glucose Point of Care 10/05/2024 22:00:19 277 Above high normal 70-120 (mg/dL) Final Performing Location
--- OUTSIDE RECORDS SUMMARY | 2024-11-04 03:18 | External Medical Summary ---
Author Name Unknown Address Unknown Organization K01:LAB[facility]ATORY [facility] - [address] [place] [address] Laboratory Report Ordering Provider Test Date Status TESS HOGAN 10/06/2024 16:03:32 Final Observation Date Value Abnormality Reference (Units ) Status Magnesium 10/06/2024 16:03:32 2.2 1.5-2.6 (m g/dL) Final Performing Location LABORATORY [facility] - [address] [place] [address]
--- OUTSIDE RECORDS SUMMARY | 2024-11-04 03:18 | External Medical Summary ---
Author Name Unknown Address Unknown Organization K01:LABORATORY [facility] - [address] [place] [address] Laboratory Report Ordering Provider Test Date Status TESS HOGAN 10/06/2024 04:10:22 Final Observation Date Value Abnormality Reference (Units ) Status Magnesium 10/06/2024 04:10:22 2.2 1.5-2.6 (m g/dL) Final Performing Location LAB[facility]ATORY [facility] - [address] [place] [address]
--- OUTSIDE RECORDS SUMMARY | 2024-11-04 03:18 | External Medical Summary ---
Author Name Unknown Address Unknown Organization K01:[facility] [address] [facility] [address] [facility] [address] Laboratory Report Ordering Provider Test Date Status TESS HOGAN 10/06/2024 04:10:22 Final Observation Date Value Abnormality Reference (Units ) Status BUN 10/06/2024 04:10:22 36 Above high normal 6-20 (mg/dL) Final Creatinine 10/06/2024 04:10:22 6.6 Above high normal 0.5-1.0 (mg/dL) Final Glomerular filtration rate/1.73 sq M.predicted [Volume Rate/Area] in Serum, Plasma or Blood by Creatinine-based formula (CKD-EPI) 10/06/2024 04:10:22 6 Below low normal >=60 (mL/min) Final eGFR is calculated based on the CKD-EPI 2020 equation. Sodium 10/06/2024 04:10:22 130 Below low normal 135 -146 (mmol/L) Final Potassium 10/06/2024 04:10:22 Final Specimen too hemolyzed. Reor eulalia if needed. Cl 10/06/2024 04:10:22 89 Below low normal 98- 107 (mmol/L) Final CO2 10/06/2024 04:10:22 27 22-32 (mmo l/L) Final Anion gap 10/06/2024 04:10:22 14 7-15 (mmol /L) Final Glucose 10/06/2024 04:10:22 228 Above high normal 70 -120 (mg/dL) Final Calcium 10/06/2024 04:10:22 9.6 8.4-10.2 ( mg/dL) Final Performing Location [facility] [place] [address]
--- OUTSIDE RECORDS SUMMARY | 2024-11-04 03:18 | External Medical Summary ---
Author Name Unknown Address Unknown Organization : Laboratory Report Ordering Provider Test Date Status SHREE GARSIA 10/06/2024 06:36:06 Final Observation Date Value Abnormality Reference (Units ) Status Glucose Point of Care 10/06/2024 06:36:06 214 Above high normal 70-120 (mg/dL) Final Performing Location
--- OUTSIDE RECORDS SUMMARY | 2024-11-04 03:18 | External Medical Summary ---
Author Name Unknown Address Unknown Organization [id number]:[facility] [place] [address] [address] Laboratory Report Ordering Provider Test Date Status SHREE GARSIA 10/06/2024 04:10:22 Final Warfarin Therapy
INR: 2 .0-3.0 conventional anticoagulation
INR: 2.5- 3.5 high intensity anticoagulation Observation Date Value Abnormality Reference (Units ) Status PT 10/06/2024 04:10:22 14.0 11.6-15.2 (seconds) Final INR 10/06/2024 04:10:22 1.1 0.8-1.2 Final Performing Location [facility] [place] [address] [place] [address]
--- OUTSIDE RECORDS SUMMARY | 2024-11-04 03:18 | External Medical Summary ---
Author Name Unknown Address Unknown Organization [id number][place] [place] [address] [facility] [address] Laboratory Report Ordering Provider Test Date Status ERMIAS MANZANARES 10/06/2024 05:42:35 Final Observation Date Value Abnormality Reference (Units ) Status Potassium, Whole Blood 10/06/2024 05:42:35 4.7 3.5-5.1 (mmol/L) Final Performing Location [facility] [place] [address] [facility] [address]
--- OUTSIDE RECORDS SUMMARY | 2024-11-04 03:18 | External Medical Summary ---
Author Name Unknown Address Unknown Organization [id number]:[facility] – [place] - [facility] [address] [facility] [address] Laboratory Report Ordering Provider Test Date Status TESS HOGAN 10/06/2024 04:10:22 Final Observation Date Value Abnormality Reference (Units ) Status WBC, Total 10/06/2024 04:10:22 9.59 4.00-10.80 (K/uL) Final RBC 10/06/2024 04:10:22 2.84 3.85-5.15 (M/uL) Final Hemoglobin 10/06/2024 04:10:22 8.6 Below low normal 12.0-15.3 (g/dL) Final HCT 10/06/2024 04:10:22 28.4 Below low normal 36.0-45.2 (%) Final MCV 10/06/2024 04:10:22 100.0 81.5-97.5 (fL) Final MCH 10/06/2024 04:10:22 30.3 27.0-34.0 (pg) Final MCHC 10/06/2024 04:10:22 30.3 32.0-36.0 (g/dL) Final RDW 10/06/2024 04:10:22 16.2 11.5-15.5 (%) Final Platelets 10/06/2024 04:10:22 261 140-400 (K/uL) Final MPV 10/06/2024 04:10:22 10.1 6.6-11.1 (fL) Final Nucleated erythrocytes/100 leukocytes [Ratio] in Blood by Automated count 10/06/2024 04:10:22 0 <=0 (/100 WBCs) Final Performing Location [facility]ORY [facility] [place] - [facility] [address] [facility] [facility] [address]
--- OUTSIDE RECORDS SUMMARY | 2024-11-04 03:18 | External Medical Summary ---
Author Name Unknown Address Unknown Organization K01:LAB[facility]ATORY [facility] – [place] - [address] [address] Laboratory Report Ordering Provider Test Date Status TESS HOGAN 10/06/2024 04:10:22 Final Observation Date Value Abnormality Reference (Units ) Status Phosphate 10/06/2024 04:10:22 6.2 Above high normal 2. 5-4.8 (mg/dL) Final Performing Location LABORATORY [facility] - [address] [place] [address]
--- OUTSIDE RECORDS SUMMARY | 2024-11-04 03:19 | External Medical Summary | Summary of Care ---
Author Name Unknown Organization [facility] Address [address] [place] [address] Phone [phone] Care Team Providers Care Bridge Rigger Name Role Phone Luis Fernando Rojas MD Primary Care Provider [phone] Reason for Visit * Reason Comments Other Syncope- reports sarthak nting spells x5 weeks- pt fainted earlier today- 5th time in about five weeks, dizzyiness SOB,reports 02 was 90% on room air earlier today with difficulty breathing Diarrhea X 3 days Cough 3 days Sore Throat Past two days Encounter Details Date Type Department Care Team (Late st Contact Info) Description 10/04/2024 6:45 PM EDT Convenient Care Visit [facility] [address] [place] [address] Luis Fernando Bansal PA-C [address] [place] [address] [place] [address] Syncope and collapse* Allergies Active Allergy Reactions Criticality Noted Date [...] 14 days ([place] [facility] 7 Each 3 1 Active CPAP every [...] 4 08/21/2024 8:06 AM EST 4 Active LifeDox Verio In Vitro Strip (Glucose Blood) To test blood sugar 4 times daily. 400 Strip 1 04/22/2024 6:47 AM EDT 4 Active TicketsNowTorumr Delica Lancets 33G To test blood sugar 4 times daily. 400 Each 1 04/22/2024 6:47 AM EDT 4 Active LifeDox Verio w/Device Kit Use as directed. 1 [...] less than 7.0% ([facility]) Inject 10 Units under the skin in the morning. 15 mL 4 5 Active Losartan Potassium 50 MG Oral Tablet (Cozaar)Indicati ons:End stage renal disease on dialysis ([facility]),HTN, goal below 140/90 Take 1 Tablet by mouth in the morning. 90 Tablet 3 5 Active Insulin Lispro (1 Unit Dial) 100 UNIT/ML Subcutaneous Solution Pen-injector (HumaLOG KwikPen)Indicati ons:Type 2 diabetes mellitus with hemoglobin A1c goal of less than 7.0% ([facility]) Inject 12 units with breakfast, 12 units with lunch and 16 units with supper. Max dose of 40 units per day 45 mL 4 5 Active Hospital, Clinic, or Other Facility Administered Medication Ordered Dose Route Frequency Start Date End Date Status vitamin b-12 (Cyanocobalamin) inj 1,000 mcgIndications:S/P gastric bypass 1000 mcg IM [id number] 10/15/2022 07/19/2025 Active vitamin b-12 (Cyanocobalamin) inj 1,000 mcgIndications:Morbid obesity with BMI of 40.0-44.9, adult ([facility]),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 [id number] 10/17/2023 12/11/19 25 Active documented as of [...] 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 10/15/2022 [employer] OTHER*[id number] 01/01/2022 S/P gastric bypass 01/01/[address] [...] AM EDT): Gabapentin 600 mg at [facility] Assessment & Plan (05/07/2021 11:11 [...] T-tube placement 04/16/2017 05/29/2017 [employer] Other*[id number] 04/13/2013 08/27/2016 Overview (04/13/2013): Study Title: Genomic Markers for Patients with Cardiovascular Disease Project # [id number] Equal Opportunity Assistant: Siena Laws MD [phone] Hypertensive heart disease 03/25/2013 1 07/29/2016 Neuropathy, [...] yrs 09/16/2018,04/14/2018,03/1104/11/2018 Pneumococcal Conjugate Vacci ne, 20-valent ([id number]) 06/22/2024,12/02/2023(Deferred: - pt states she's already received) [...] Sign Reading Time Taken Comments Blood Pressure - - Pulse 78 10/04/2024 6:52 PM EDT Temperature 36.7 °C (98.1 °F) 10/04/2024 6:52 PM ED T Respiratory Rate 20 10/04/2024 6:52 PM EDT Oxygen Saturation 94% 10/04/2024 6:52 PM EDT Inhaled Oxygen Concentration - - Weight 103 kg (227 lb 1.6 oz) 10/04/2024 6:52 PM EDT Height 162.6 cm (5' 4") 10/04/2024 6:52 PM EDT Body Mass Index 38.98 10/04/2024 6:52 PM EDT documented in this encounter Functional Status * Are you deaf or do you have serious difficulty hearing? Answer Date of Assessment Author No 12/11/2022 6:51 PM EDT Rabia iWley RN * Are you blind or do [...] Rabia Wiley RN documented in this encounter Patient Instructions * Patient Instructions* Luis Fernando Bansal PA-C - 10/04/2024 7:41 PM EDT Directly to ED documented in this encounter Progress Notes * Luis Fernando Bansal PA-C - 10/04/2024 7:08 PM EDT SUBJECTIVE: CC: Chief Complaint Patient presents with Other Syncope- reports fainting spells x5 weeks- pt fainted earlier today- 5th time in about five weeks, dizzyiness SOB,reports 02 was 90% on room air earlier today with difficulty breathing Diarrhea X 3 days Cough 3 days Sore Throat Past two days HPI: Candi Finley is a 63 year old female who presents with 5 episodes of syncope in the last 5 weeks. Notes the last episode was today. Notes the syncopal episodes seem to come on without warning. Notes that the prior episodes have happened and then she felt okay, but today she continues to be dizzyand occasionally see spots. She notes that she is out for a few moments until her stirs herawake. She has had diarrhea for the last 3-4 days. No vomiting. No fevers. No bloody or black stools. She does have a history of vertigo. No chest pain. No palpitations but does feel like her heart races afterwards. She does have a pacemaker. Pulse ox this am was 90% at rest per patient. 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 ? ROS ROS as noted in HPI PAST MEDICAL Hx: Past Medical History: Diagnosis Date Body mass index 40 and over, adult CHF NYHA class I ([facility]) 07/2009 Chronic marginal ulcer Deficiency of other vitamins Vit D Depressive disorder, not elsewhere classified Dialysis patient ([facility]) Diverticulosis of colon (without mention of hemorrhage) 12/02/2013 sigmoid & descending colon DM type 2 causing eye disease ([facility]) DM type 2 causing neurological disease ([facility]) neuropathy since 2006 DM type 2 causing renal disease ([facility]) DM type 2, goal A1c below [address] Monte Dyslipidemia, goal LDL below 100 primarily high triglycerides Endometrial cancer ([facility]) 1993 ESRD (end stage renal disease) on dialysis ([facility]) 03/14/2021 HTN, goal below 130/80 Kidney disease, chronic, stage III (GFR 30-59 ml/min) ([facility]) 10/02/2011 More specified code listed on PL [...] Renal failure hemodialysis SBO (small bowel obstruction) ([facility]) 04/25/2017 Sleep apnea 07/2009 CPAP 11 cm H2O. C-flex 2 PAST SURGICAL Hx: Past Surgical History: Procedure Laterality Date ABD WALL HERNIA REPAIR, LAP, REDUCIBLE N/A 01/28/2022 LAPAROSCOPIC VENTRAL/UMBILICAL HERNIA REPAIR, REDUCIBLE W OR W/O MESH performed by Honorio Ashford MD at OR [facility] AV ACCESS, DIRECT ANASTOMOSIS Right 08/16/2021 ARTERIOVENOUS ANASTOMOSIS OPEN DIRECT ANY SITE performed by Sterling Cates MD at OR [facility] BREAST BIOPSY Left 12/26/2008 Usual Ductal Hyperplasia BREAST BIOPSY Left 09/20/2010 Benign BX LYMPH NODE DEEP AXIL Right 05/22/2021 BIOPSY LYMPH NODE DEEP AXILLARY OPEN performed by Diamond Rivero MD at OR [facility] COLONOSCOPY, DIAGNOSTIC (RECTUM) 12/02/2013 hyperplastic polyps, diverticulosis, repeat 5 yrs/done @ [facility] COLONOSCOPY, DIAGNOSTIC (RECTUM) 12/11/2017 adenomatous polyps, diverticulosis, repeat 5 yrs/[facility] COLONOSCOPY, DIAGNOSTIC (RECTUM) N/A 02/27/2023 diverticulosis/hemorrhoids/biopsies show adenomatous polyps/recall 5 years/Colonoscopy/[place] CORONARY ANGIOGRAPHY W/LEFT HEART CATH 04/13/2013 CORONARY ANGIOGRAPHY W/LEFT HEART CATH performed by Ulises Reed MD at CARDIAC LABS [facility] DIALYIS CIRCUIT VASCULAR EMBOLIZATION OCCLUSION ENDOVASC IMAGING Right 11/27/2021 EMBOLIZATION DIALYSIS CIRCUIT performed by Sterling Cates MD at OR [facility] EGD, FLEXIBLE, DIAGNOSTIC 05/03/2014 mild-mod inflammation/done @ [facility] EGD, FLEXIBLE, DIAGNOSTIC N/A 04/16/2017 ESOPHAGOGASTRODUODENOSCOPY (EGD), FLEXIBLE, TRANSORAL, DIAGNOSTIC performed by Félix Gilliam OR [facility] EGD, FLEXIBLE, DIAGNOSTIC 05/05/2020 mild-mod inflammation on bx / ESOPHAGOGASTRODUODENOSCOPY (EGD), FLEXIBLE, TRANSORAL, DIAGNOSTIC performed by Adin Borja MD at ENDOSCOPY [facility] EGD, FLEXIBLE, DIAGNOSTIC N/A 04/25/2021 ESOPHAGOGASTRODUODENOSCOPY (EGD), FLEXIBLE, TRANSORAL, DIAGNOSTIC performed by Honorio Almendarez MD atENDOSCOPY [facility] EGD, FLEXIBLE, DIAGNOSTIC 06/13/2021 gastrojejunal anastomosis characterized by ulceration, repeat 2 mo / [facility] IDENTIFY SENTINEL NODE, RADIOACTIVE TRACER Right 05/22/2021 INJECTION PROCEDURE FOR IDENTIFICATION SENTINEL NODE performed by Diamond Rivero MD at OR [facility] INFORMATION Left 2019 Pacemaker placement. INTRO CATH DIALYSIS CIRCUIT DX ANGIOGRAPHY FLUORO S&I Right 10/10/2022 AV FISTULOGRAM DIAGNOSTIC performed by Jose Devine MD at OR [facility] INTRO CATH DIALYSIS CIRCUIT W/TRANSCATH PLACEMENT IV STENT Right 03/19/2022 AV FISTULOGRAM STENT & PERIPHERAL ANGIOPLASTY performed by Jose Devine MD at OR [facility] INTRO CATH DIALYSIS CIRCUIT W/TRANSCATH PLACEMENT IV STENT Right 05/13/2023 AV FISTULOGRAM STENT & PERIPHERAL ANGIOPLASTY performed by Williams Matt MD at OR [facility] INTRO CATH DIALYSIS CIRCUIT W/TRANSCATH PLACEMENT IV STENT Right 12/02/2023 AV FISTULOGRAM STENT & PERIPHERAL ANGIOPLASTY performed by Micheal Urena MD at OR [facility] INTRO CATH DIALYSIS CIRCUIT W/TRANSCATH PLACEMENT IV STENT Right 06/01/2024 AV FISTULOGRAM STENT & PERIPHERAL ANGIOPLASTY performed by Beto Torrez MD at OR [facility] INTRO CATH DIALYSIS CIRCUIT W/TRANSLUM BALLOON ANGIOPLASTY Right 11/27/2021 AV FISTULOGRAM & PERIPHERAL ANGIOPLASTY performed by Sterling Cates MD at OR [facility] INTRO CATH DIALYSIS CIRCUIT W/TRANSLUM BALLOON ANGIOPLASTY Right 05/30/2022 AV FISTULOGRAM & PERIPHERAL ANGIOPLASTY performed by Beto Torrez MD at OR [facility] INTRO CATH DIALYSIS CIRCUIT W/TRANSLUM BALLOON ANGIOPLASTY Right 02/25/2023 AV FISTULOGRAM & PERIPHERAL ANGIOPLASTY performed by Jose Devine MD at OR [facility] INTRO CATH DIALYSIS CIRCUIT W/TRANSLUM BALLOON ANGIOPLASTY Right 03/30/2024 AV FISTULOGRAM & PERIPHERAL ANGIOPLASTY performed by Micheal Urena MD at OR [facility] INTRO CATH DIALYSIS CIRCUIT W/TRANSLUM BALLOON ANGIOPLASTY Right 09/16/2024 AV FISTULOGRAM & PERIPHERAL ANGIOPLASTY performed by Sterling Cates MD at OR [facility] IR DUPLEX ULTRASOUND (FOR INTERVENTIONAL RADIOLOGY USE ONLY) 03/02/2021 IR FISTULAGRAM AV DIALYSIS SHUNT IR VENOUS ACCESS NON-MEDIPORT 07/18/2022 LAPAROSCOPE PROCEDURE, LIVER N/A 04/16/2017 UNLISTED LAPAROSCOPIC PROCEDURE LIVER performed by Sukumar Polanco MD at OR [facility] LAPAROSCOPE PROCEDURE, LIVER N/A 01/28/2022 UNLISTED LAPAROSCOPIC PROCEDURE LIVER performed by Honorio Ashford MD at OR [facility] LAPAROSCOPIC GASTRIC BYPASS/JODY-EN-Y N/A 04/16/2017 LAPAROSCOPIC GASTRIC RESTRICTIVE BYPASS JODY EN Y performed by Sukumar Polanco MD at OR [facility] LAPAROSCOPY; CHOLECYSTECTOMY N/A 04/16/2017 LAPAROSCOPIC CHOLECYSTECTOMY performed by Sukumar Polanco MD at OR [facility] MISCELLANEOUS ORDER ([facility] ONLY) 05/2009 breast biopsy/ [...] performed by Sukumar Polanco MD at OR [facility] REPLACE,COMP,FLACO CENT ACC DEV N/A 03/22/2021 REPLACEMENT COMPLETE TUNNELED CENTRAL CATHETER NO PORT performed by Luis Fernando Hassan DO at OR [facility] REVISE STOMACH-BOWEL FUSION N/A 01/28/2022 REVISION GASTROJEJUNAL ANASTOMOSIS performed by Honorio Ashford MD at OR [facility] RMV MALG LSN TRK/ARM/LG >4.0CM Right 05/22/2021 EXCISION MALIGNANT TRUNK ARM LEG OVER 4CM performed by Diamond Rivero MD at OR [facility] RPR AA HERNIA 1ST 3-10 CM REDUCIBLE N/A 12/11/2022 INCISIONAL/VENTRAL/SPIGELIAN HERNIA REPAIR INITIAL 3-10 CM REDUCIBLE performed by Eros Dash MD at OR [facility] TOTAL ABD HYSTERECTOMY W/WO REMOVAL OF TUBE(S) Bilateral age 33 TOTAL HYSTERECTOMY TAHBSO (endometrial ca) TRANSECTION VAGUS NRV,TRUNCAL N/A 01/28/2022 LAPAROSCOPIC TRANSECTION VAGUS NERVES TRUNCAL performed by Honorio Ashford MD at OR [facility] UPPER GI ENDOSCOPY SOCIAL Hx: Social History Socioeconomic History Marital status: Spouse name: Not on file Number of children: 0 Years of education: Not on file Highest education level: Not on file Occupational History Employer: [employer] Tobacco Use Smoking status: Never Passive exposure: Never Smokeless tobacco: Never Vaping Use Vaping status: Never Used Substance and Sexual Activity Alcohol use: No Drug use: No Sexual activity: Yes Partners: Male control/protection: Surgical Comment: hysterectomy Other Topics Concern Not on file Social History Narrative 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 Social Needs Financial Resource [...] Stability Do you currently live in a care home or have no steady place to sleep [...] - for ages0-17 years): Not on file FAMILY Hx: Family History Problem Relation Name Age of [...] Cancer Aunt (Paternal) Breast Cancer Cousin (Paternal) CURRENT PROBLEM LIST: 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 Type 2 diabetes mellitus with hemoglobin A1c goal of less than 7.0% ([facility]) Vitamin D deficiency HTN, goal below 140/90 Major depressive disorder, recurrent episode, moderate with seasonal pattern ([facility]) Rosacea Hypothyroidism (acquired) Mitral annular calcification Type 2 diabetes mellitus with diabetic polyneuropathy, with long-term current use of insulin (HCC) Chronic diastolic heart failure (HCC) History of endometrial cancer Hyperparathyroidism, secondary renal (HCC) MINISTERIO on CPAP Stable proliferative diabetic retinopathy of both eyes associated with type 2 diabetes mellitus ([facility]) SALVADOR inhibitor intolerance SSS (sick sinus syndrome) ([facility]) PAT (paroxysmal atrial tachycardia) ([facility]) Gastroesophageal reflux disease without esophagitis Hypertensive 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 congestive heart failure and stage 5 chronic kidney disease on chronic dialysis ([facility]) Morbid obesity with BMI of 40.0-44.9, adult ([facility]) Postsurgical malabsorption, not elsewhere classified Diabetic gastroparesis ([facility]) Type 2 diabetes mellitus 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 dialysis, with long-term current use of insulin ([facility]) Presence of cardiac pacemaker End stage renal disease on dialysis ([facility]) Marginal ulcer Aortic atherosclerosis ([facility]) Dialysis AV fistula malfunction ([facility]) [employer] OTHER*[id number] S/P gastric bypass 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 Aspirin 81 MG Oral Tablet Chewable Take 1 Tab by mouth at bedtime. with food. 90 Tab 3 FreeStyle Jennifer 2 Sensor Use as directed. Replace every 14 days (supp[place] through [facility] 7 Each 3 CPAP every night at [...] Kit Use as directed. 1 Kit 0 Gabapentin 300 MG Oral Capsule (Neurontin) Take [...] if needed for diarrhea 180 Tablet 3 traMADol HCl 50 MG Oral Tablet (Ultram) Take 1 Tablet by mouth every 4 hours as needed for Pain, Severe. Insulin Glargine Solostar 100 UNIT/ML Subcutaneous Solution Pen-injector (Basaglar KwikPen) Inject 10 Units under the skin in the morning. 15 mL 4 Losartan Potassium 50 MG Oral Tablet (Cozaar) Take 1 Tablet by mouth in the morning. 90 Tablet 3 Insulin Lispro (1 Unit Dial) 100 UNIT/ML Subcutaneous Solution Pen-injector (HumaLOG KwikPen) Inject 12 units with breakfast, 12 units with lunch and 16 units with supper. Max dose of 40 units per day 45 mL 4 Diclofenac Sodium 1 % External Gel (Voltaren) Apply topically to affected area 3 times a day as needed for Pain. 100 g 2 Albuterol Sulfate 0.63 MG/3ML Inhalation Nebulization Solution (Accuneb) Inhale 1 Vial via nebulizer every 6 hours as needed for Wheezing. Benzonatate 100 MG Oral Capsule (Tessalmarybel Perlwendi) Take 1 Capsule by mouth 3 times a day as needed for Cough. Do not cut, crush, or chew. (Patient not taking: Reported on 09/16/2024) 50 Capsule 1 Current Facility-Administered Medications Medication Dose Route Frequency Provider Last Rate Last Admin vitamin b-12 (Cyanocobalamin) inj 1,000 mcg 1,000 mcg Intramuscular Q12 Weeks Luis Fernando Rojas MD 1,000 mcg at 09/02/24 1013 vitamin b-12 (Cyanocobalamin) inj 1,000 mcg 1,000 mcg Intramuscular Q12 Weeks Cleo Fonseca PA-C Review of patient's allergies indicates: Allergen Reactions Salvador Inhibitors Other (Please comment) and Cough HyperKalemia OBJECTIVE: VS: Pulse 78 | Temp 36.7 °C (98.1 °F) (Tympanic) | Resp 20 | Ht 1.626 m (5' 4") | Wt 103 kg (227 lb 1.6 oz) | SpO2 94% | BMI 38.98 kg/m² | BSA 2.16 m² Wt Readings from Last 1 Encounters: 10/04/24 103 kg (227 lb 1.6 oz) General: alert, no distress, and pale Head: Normocephalic, No masses, lesions, tenderness or abnormalities Ears: External ears normal, Canals clear, TM's Normal Oropharynx: no exudate, no erythema, lips, buccal mucosa, and tongue normal, and mucous membranes are moist Heart: regular rate & rhythm, no murmur, and no gallops Lungs: chest symmetric with normal AP diameter, no chest deformities noted, no chest wall tenderness, lungs clear to auscultation Abdomen: abdomen soft, non-tender, normal bowel sounds, and no masses or organomegaly Skin: pale Neuro: CNII-XII grossly intact, speech normal, in wheelchair, gait unsteady ASSESSMENT/PLAN(s): Syncope and collapse (Primary) To ED for further evaluation and treatment. Luis Fernando Bansal PA-C [facility] [address] [facility] [place] [address] documented in this encounter Nursing Notes * Cleo Carpenter LPN - 10/04/2024 7:03 PM EDT Candi Finley is a 63 year old female who presents to walk-in clinic today complaining of Chief Complaint Patient presents with Other Syncope- reports fainting spells x5 weeks- pt fainted earlier today- 5th time in about five weeks, dizzyiness SOB,reports 02 was 90% on room air earlier today with difficulty breathing Diarrhea X 3 days Cough 3 days Sore Throat Past two days OTC treatments tried:no Effectiveness: n/a Patient is accompanied by ,Zhen, for today's visit. documented in this encounter Plan of Treatment Upcoming Encounters Date Type Department Care Team (Late st Contact Info) Description 10/05/2024 10:00 AM EDT Scheduled Telephone [facility], [facility] [address] [place] [address] [facility], Nurse [facility] [address] [place] [address] 10/14/2024 11:40 AM EDT Telemedicine Pharmacy[address] [phone] [address] [place] [address] 11/02/2024 9:30 AM EDT Home Visit [facility] [place], [facility] [address] [address] Heidi Garcia, RN [address] [place] [address] 11/25/2024 10:00 AM EDT Imaging Radiology [facility] [address] [place] [address] 11/30/2024 10:00 AM EDT Nurse Only Nutrition & Weight Management, [facility] [address] [place] [phone] Boni, Nurse Gi Nutrition [facility] [address] [place] [address] 12/09/2024 12:15 PM EDT Hospital Encounter OR GL, Operating Room, [facility] - 4th Floor [address] [facility] [place] [phone] Himanshu Rivero, DO [address] [place] [address] 12/09/2024 12:15 PM EDT - 12/09/2024 12:56 PM EDT Surgery OR [facility], Operating Room, [facility] - 4th Floor [address] [place] [phone] Himanshu Rivero, [address] [place] [address] COLONOSCOPY FLEXIBLE PROXIMAL DIAGNOSTIC 12/21/2024 10:30 AM EDT Office Visit Gastroenterology, [facility] [address] [place] [address] Emi Queen CRNP [address] [place] [address] 03/10/2025 1:20 PM EDT Office Visit [facility] [address] [place] [phone] Joanne Parks PA-C [address] [place] [address] [place] [address] Scheduled Procedures Name Priority Associated Diagnoses Date/Ti [...] this encounter Medical Devices Implanted Type Area Lean Process Deployment Consultant Device Identifier Shelf Expiration Date Model / Serial / Lot Coil Vortex 35 Pltinm [id number] - [id number] Implanted:Qty: 1 on 11/27/2021 by Sterling Cates MD at OR [facility] Right: Upper Arm [employer] : NEURO INTR [id number] 08/15/2024 [id number] / / [id number] Coil Vortex 35 Pltinm [id number] - [id number] Implanted:Qty: 1 on 11/27/2021 by Sterling Cates MD at OR [facility] Right: Upper Arm [employer] : NEURO INTR [id number] 08/15/2024 [id number] / / [id number] Coil Vortex 35 Pltinm [id number] - [id number] Implanted:Qty: 1 on 11/27/2021 by Sterling Cates MD at OR [facility] Right: Upper Arm [employer] : NEURO INTR [id number] 08/15/2024 [id number] / / [id number] Coil Vortex 35 Pltinm [id number] - [id number] Implanted:Qty: 1 on 11/27/2021 by Sterling Cates MD at OR [facility] Right: Upper Arm [employer] : NEURO INTR [id number] 05/16/2024 [id number] / [id number] Azur 35 Detachable 5mm 11cm - [id number] Implanted:Qty: 1 on 03/19/2022 by Jose Devine MD at OR [facility] Right: Wrist Bulb [id number] 10/18/2025 [id number] / / [id number] Azur 35 Detachable 5mm 11cm - [id number] Implanted:Qty: 1 on 03/19/2022 by Jose Devine MD at OR [facility] Right: Wrist Bulb [id number] 06/19/2026 [id number] / / [id number] Mesh Flat Sheet 10x14 [id number] - [id number] Implanted:Qty: 1 on 12/11/2022 by Eros Dash MD at OR [facility] N/A: Abdomen CR BARD : DAVOL [id number] 06/17/2027 [id number] / / [id number] documented as of this encounter Visit Diagnoses [...] Diarrhea, unspecified type Syncope and collapse- Primary History of colonic polyps Personal history of colonic polyps Diarrhea documented in this encounter Advance Directives Documents on File Type Date Recorded 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
--- OUTSIDE RECORDS SUMMARY | 2024-11-04 03:19 | External Medical Summary ---
Author Name Unknown Address Unknown Organization K01:[facility] [place] [address] [facility] [address] Laboratory Report Ordering Provider Test Date Status TESS HOGAN 10/05/2024 17:15:21 Final Observation Date Value Abnormality Reference (Units ) Status BUN 10/05/2024 17:15:21 26 Above high normal 6-20 (mg/dL) Final Creatinine 10/05/2024 17:15:21 6.1 Above high normal 0.5-1.0 (mg/dL) Final Glomerular filtration rate/1.73 sq M.predicted [Volume Rate/Area] in Serum, Plasma or Blood by Creatinine-based formula (CKD-EPI) 10/05/2024 17:15:21 7 Below low normal >=60 (mL/min) Final eGFR is calculated based on the CKD-EPI 2020 equation. Sodium 10/05/2024 17:15:21 134 Below low normal 135 -146 (mmol/L) Final Potassium 10/05/2024 17:15:21 4.6 3.5-5.1 (m mol/L) Final Cl 10/05/2024 17:15:21 91 Below low normal 98- 107 (mmol/L) Final CO2 10/05/2024 17:15:21 28 22-32 (mmo l/L) Final Anion gap 10/05/2024 17:15:21 15 7-15 (mmol /L) Final Glucose 10/05/2024 17:15:21 200 Above high normal 70 -120 (mg/dL) Final Calcium 10/05/2024 17:15:21 9.9 8.4-10.2 ( mg/dL) Final Performing Location [facility] [place] [address] [place] [address]
--- OUTSIDE RECORDS SUMMARY | 2024-11-04 03:19 | External Medical Summary | Summary of Care ---
Author Name Unknown Organization [facility] Address [address] [place] [address] Phone [phone] Care Team Providers Care Rubber Process Hand Name Role Phone Luis Fernando Rojas MD Primary Care Provider [phone] Encounter Details Date Type Department Care Team (Late st Contact Info) Description 10/05/2024 Telephone Cardiology [place] [address] [place] [address] Chelsy Hawley, JOHN Allergies Active Allergy Reactions Criticality Noted Date [...] hemoglobin A1c goal of less than 7.0% ([facility]) Use 4 times daily with insulin [...] 1 04/22/2024 6:47 AM EDT 4 Active Instant InformationTouch Verio w/Device Kit Use as directed. 1 [...] hemoglobin A1c goal of less than 7.0% ([facility]) Inject 10 Units under the skin in the morning. 15 mL 4 5 Active Losartan Potassium 50 MG Oral Tablet (Cozaar)Indicati ons:End stage renal disease on dialysis ([facility]),HTN, goal below 140/90 Take 1 Tablet by mouth in the morning. 90 Tablet 3 5 Active Insulin Lispro (1 Unit Dial) 100 UNIT/ML Subcutaneous Solution Pen-injector (HumaLOG KwikPen)Indicati ons:Type 2 diabetes mellitus with hemoglobin A1c goal of less than 7.0% ([facility]) Inject 12 units with breakfast, 12 units with lunch and 16 units with supper. 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 [id number] 10/17/2023 12/11/19 25 Active documented as of [...] detachments not involving maculae 10/15/2022 [facility] OTHER*[id number] 01/01/2022 S/P gastric bypass 01/01/[address] [...] Insulin long-term use 11/19/20182018 Overview (05/20/2019): Duplicate emt intermediate (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 insulin [...] T-tube placement 04/16/2017 05/29/2017 [employer] Other*[id number] 04/13/2013 08/27/2016 Overview (04/13/2013): Study Title: Genomic Markers for Patients with Cardiovascular Disease Project # [id number] Wet Chemistry Analyst: Siena Laws MD [phone] Hypertensive heart disease 03/25/2013 1 07/29/2016 Neuropathy, [...] yrs 09/16/2018,04/14/2018,03/1104/11/2018 Pneumococcal Conjugate Vacci ne, 20-valent ([id number]) 06/22/2024,12/02/2023(Deferred: - pt states she's already received) [...] No 08/14/2023 Does the household have a [facility] source of income? (Household - [...] encounter Miscellaneous Notes * Telephone Encounter - Chelsy Hawley RN - 10/05/2024 11:42 AM EDT Images from the original note were not included. * Telephone Encounter - Chelsy Hawley RN - 10/05/2024 10:55 AM EDT Images from the original note were not included. [employer] carelink express received and reviewed. Pt with the following episodes (see picture). Zeinais currently in the [facility]. Chelsy Hawley RN 10/05/2024 10:56 AM documented in this encounter Plan of Treatment Upcoming Encounters Date Type Department Care Team (Late st Contact Info) Description 10/14/2024 11:40 AM EDT [facility]icine [facility], [place] [facility] [address] [place] [address] [facility] [address] [place] [address] 11/02/2024 9:30 AM EDT [facility] [address] [place] [address] Heidi Garcia, RN [address] [place] [address] 11/25/2024 10:00 AM EDT Imaging Radiology [facility] [address] [place] [address] 11/30/2024 10:00 AM EDT Nurse Only Nutrition & Weight Management, [facility] [address] [place] [address] [facility], Nurse Gi Nutrition [facility] [address] [place] [address] 12/09/2024 12:15 PM EDT Hospital Encounter OR [facility], Operating Room, [facility] - 4th Floor [address] [facility] [place] [address] Himanshu Rivero, DO [address] [place] [address] 12/09/2024 12:15 PM EDT - 12/09/2024 12:56 PM EDT Surgery OR [facility], Operating Room, [facility] - 4th Floor [address] [place] [address] Himanshu Rivero, DO [address] [place] [address] COLONOSCOPY FLEXIBLE PROXIMAL DIAGNOSTIC 12/21/2024 10:30 AM EDT Office Visit Gastroenterology, [facility] [address] [place] [phone] Emi Queen CRNP [address] [place] [address] 03/10/2025 1:20 PM EDT [facility] [address] [place] [address] Joanne Parks PA-C [address] [place] [address] [place] [address] Scheduled Procedures Name Priority Associated Diagnoses Date/Ti [...] this encounter Medical Devices Implanted Type Area Director Of Sales Support Device Identifier Shelf Expiration Date Model / Serial / Lot Coil Vortex 35 Pltinm [id number] - [id number] Implanted:Qty: 1 on 11/27/2021 [place] Sterling Cates [place] [facility] [place]: Upper Arm [employer] : NEURO INTR [id number] 08/15/2024 [id number] / / [id number] Coil Vortex 35 Pltinm 960373 - [id number] Implanted:Qty: 1 on 11/27/2021 by Sterling Cates MD [place] [facility] [place]: Upper Arm [employer] : NEURO INTR [id number] 08/15/2024 [id number] / / [id number] Coil Vortex 35 Pltinm 980504 - [id number] Implanted:Qty: 1 on 11/27/2021 by Sterling Cates [place] [facility] [place]: Upper Arm [employer] : NEURO INTR [id number] 08/15/2024 [id number] / / [id number] Coil Vortex 35 Pltinm [id number] - [id number] Implanted:Qty: 1 on 11/27/2021 by Sterling Cates MD [place] [facility] [place]: Upper Arm [employer] : NEURO INTR [id number] 05/16/2024 [id number] / / [id number] Azur 35 Detachable 5mm 11cm - [id number] Implanted:Qty: 1 on 03/19/2022 by Jose Devine MD [place] [facility] [place]: Wrist [employer] [id number] 10/18/2025 [id number] / / [id number] Azur 35 Detachable 5mm 11cm - [id number] Implanted:Qty: 1 on 03/19/2022 by Jose Devine MD [place] [facility] [place]: Wrist [employer] [id number] 06/19/2026 [id number] / / [id number] Mesh Flat Sheet 10x14 [id number] - [id number] Implanted:Qty: 1 on 12/11/2022 by Eros Dash MD [place] [facility] [place] N/A: Abdomen CR BARD : DAVOL [id number] 06/17/2027 [id number] / / [id number] documented as of this encounter Advance Directives Documents on File Type Date Recorded Patient Security Strategist Expl anation POL 11/13/2020 POLST PENNSYLVA VALERIA [...] Spouse Health Care Agent Care Teams Rubber Process Hand Relationship Specialty Start Date End Date Luis Fernando Rojas MD [address] [facility] [address] [place] [address] PCP - General Family Medicine 09/23/16 documented as of this encounter
--- OUTSIDE RECORDS SUMMARY | 2024-11-04 03:19 | External Medical Summary ---
Author Name Unknown Address Unknown Organization : Laboratory Report Ordering Provider Test Date Status SHREE GARSIA 10/05/2024 17:13:16 Final Observation Date Value Abnormality Reference (Units ) Status Glucose Point of Care 10/05/2024 17:13:16 209 Above high normal 70-120 (mg/dL) Final Performing Location
--- OUTSIDE RECORDS SUMMARY | 2024-11-04 03:19 | External Medical Summary | Summary of Care ---
Author Name Unknown Organization [facility] Address [address] [place] [address] Phone [phone] Care Team Providers Care Sanitation Truck Cleaner Name Role Phone Luis Fernando Rojas MD Primary Care Provider [phone] Encounter Details Date Type Department Care Team (Late st Contact Info) Description 10/05/2024 Telephone Cardiology [place] [address] [place] [address] Chelsy Hawley, JOHN Allergies Active [...] 1 04/22/2024 6:47 AM EDT 4 Active Advent EngineeringTouch Verio w/Device Kit Use as directed. 1 [...] 7.0% ([facility]) Inject 10 Units under the skin in the morning. 15 mL 4 5 Active Losartan Potassium 50 MG Oral Tablet (Cozaar)Indicati ons:End stage renal disease on dialysis ([facility]),HTN, goal below 140/90 Take 1 Tablet by mouth in the morning. 90 Tablet 3 5 Active Insulin Lispro (1 Unit Dial) 100 UNIT/ML Subcutaneous Solution Pen-injector (HumaLOG KwikPen)Indicati ons:Type 2 diabetes mellitus with hemoglobin A1c goal of less than 7.0% ([facility]) Inject 12 units with breakfast, 12 units with lunch and 16 units with supper. 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 [id number] 10/17/2023 12/11/19 25 Active documented as of [...] detachments not involving maculae 10/15/2022 [facility] OTHER*[id number] 01/01/2022 S/P gastric bypass 01/01/[address] [...] T-tube placement 04/16/2017 05/29/2017 [employer] Other*[id number] 04/13/2013 08/27/2016 Overview (04/13/2013): Study Title: Genomic Markers for Patients with Cardiovascular Disease Project # [id number] Can Striper: Siena Laws MD [phone] Hypertensive heart disease 03/25/2013 1 07/29/2016 Neuropathy, [...] yrs 09/16/2018,04/14/2018,03/1104/11/2018 Pneumococcal Conjugate Vacci ne, 20-valent (Forwrjj79) 06/22/2024,12/02/2023(Deferred: - pt states she's already received) [...] No 08/14/2023 Does the household have a [facility] source of income? (Household - for [...] Orientation Straight 06/09/2019 5 :21 PM EST Occupation Industry Job Start Date [...] episodes (see picture). Zeinais currently in the [facility]. Chelsy Hawley RN 10/05/2024 10:56 AM documented in this encounter Plan of Treatment Upcoming Encounters Date Type Department Care Team (Late st Contact Info) Description 10/14/2024 11:40 AM EDT [facility] [place] [facility] [address] [facility] [place] [address] [facility] [address] [facility] [place] [address] 11/02/2024 9:30 AM EDT [facility] [address] [facility] [place] [address] Heidi Garcia, RN [address] [place] [address] 11/25/2024 10:00 AM EDT Imaging Radiology [facility] [address] [place] [address] 11/30/2024 10:00 AM EDT Nurse Only Nutrition & Weight Management, [facility] [address] [place] [address] [facility], Nurse Gi Nutrition [facility] [address] [place] [address] 12/09/2024 12:15 PM EDT Hospital Encounter OR [facility], Operating Room, [facility] - 4th Floor [address] [facility] [place] [address] Himanshu Rivero, DO [address] [place] [address] 12/09/2024 12:15 PM EDT - 12/09/2024 12:56 PM EDT Surgery OR [facility], Operating Room, [facility] - 4th Floor [address] [place] [address] Himanshu Rivero, DO [address] [place] [address] COLONOSCOPY FLEXIBLE PROXIMAL DIAGNOSTIC 12/21/2024 10:30 AM EDT Office Visit Gastroenterology, [facility] [address] [place] [phone] Emi Queen CRNP [address] [place] [address] 03/10/2025 1:20 PM EDT [facility] [address] [place] [address] Joanne Parks PA-C [address] [place] [address] [place] [address] Scheduled Procedures Name Priority Associated Diagnoses Date/Ti [...] this encounter Medical Devices Implanted Type Area Stiff Neck Loader Device Identifier Shelf Expiration Date Model / Serial / Lot Coil Vortex 35 Pltinm [id number] - [id number] Implanted:Qty: 1 on 11/27/2021 by Sterling Cates MD [place] [facility] [place]: Upper Arm [employer] : NEURO INTR [id number] 08/15/2024 [id number] / / [id number] Coil Vortex 35 Pltinm [id number] - [id number] Implanted:Qty: 1 on 11/27/2021 by Sterling Cates MD [place] [facility] [place]: Upper Arm [employer] : NEURO INTR [id number] 08/15/2024 [id number] / / [id number] Coil Vortex 35 Pltinm [id number] - [id number] Implanted:Qty: 1 on 11/27/2021 by Sterling Cates MD [place] [facility] [place]: Upper Arm [employer] : NEURO INTR [id number] 08/15/2024 [id number] / / [id number] Coil Vortex 35 Pltinm [id number] - [id number] Implanted:Qty: 1 on 11/27/2021 by Sterling Cates MD at [place] [facility] [place] Right: Upper Arm [employer] : NEURO INTR [id number] 05/16/2024 [id number] / / [id number] Azur 35 Detachable 5mm 11cm - [id number] Implanted:Qty: 1 on 03/19/2022 by Jose Devine MD at [place] [facility] [place]: Wrist [employer] [id number] 10/18/2025 [id number] / / [id number] Azur 35 Detachable 5mm 11cm - [id number] Implanted:Qty: 1 on 03/19/2022 by Jose Devine MD at [place] [facility] [place] Right: Wrist [employer] [id number] 06/19/2026 [id number] / / [id number] Mesh Flat Sheet 10x14 [id number] - [id number] Implanted:Qty: 1 on 12/11/2022 by Eros Dash MD [place] [facility] [place] N/A: Abdomen CR BARD : DAVOL [id number] 06/17/2027 [id number] / / [id number] documented as of this encounter Advance Directives Documents on File Type Date Recorded Patient Nursing Care Attendant Expl anation POL 11/13/2020 POLST PENNSYLVA VALERIA [...] Finley Spouse Health Care Agent Care Teams Sanitation Truck Cleaner Relationship Specialty Start Date End Date Luis Fernando Rojas MD [address] [facility] [place] [address] PCP - General Family Medicine 09/23/16 documented as of this encounter
--- OUTSIDE RECORDS SUMMARY | 2024-11-04 03:19 | External Medical Summary ---
Author Name Unknown Address Unknown Organization K01:[facility] - [address] [place] [address] Laboratory Report Ordering Provider Test Date Status TESS HOGAN 10/05/2024 17:15:21 Final Observation Date Value Abnormality Reference (Units ) Status Magnesium 10/05/2024 17:15:21 2.2 1.5-2.6 (m g/dL) Final Performing Location [facility] - [address] [place] [address]
[2024-11-04 05:05] LABS: Basophils # (auto) 0.08 K/uL (0.00-0.20); Basophils % (auto) 0.9 %; Eosinophils # (auto) 0.19 K/uL (0.00-0.50); Eosinophils % (auto) 2.2 %; Hematocrit (blood only) 28.5 % (37.0-47.0); Hemoglobin 8.9 g/dl (12.0-16.0); Immature Granulocytes # (auto) 0.03 K/uL (0.01-0.20); Immature Granulocytes % (auto) 0.3 %; Lymphocytes % (auto) 30.1 %; Mean Corpuscular Hemoglobin 30.5 pg (25.0-34.0); Mean Corpuscular Hgb Conc 31.2 g/dL (32.0-36.0); Mean Corpuscular Volume 97.6 fL (80.0-100.0); Mean Platelet Volume 11.1 fL (9.4-12.4); Monocytes # (auto) 0.75 K/uL (0.11-0.59); Monocytes % (auto) 8.7 %; Neutrophils # (auto) 4.99 K/uL (1.40-6.50); Neutrophils % (auto) 57.8 %; Platelet Count 158 K/uL (130-400); RDW Coefficient of Variation 14.8 % (11.5-14.5); RDW Standard Deviation 53.5 fL (36.4-46.3); Red Blood Count 2.92 M/uL (4.20-5.40); White Blood Count 8.64 K/ul (4.8-10.8)
--- OUTSIDE RECORDS SUMMARY | 2024-11-04 05:23 | External Medical Summary | Summary of Care ---
Author Name Unknown Organization [facility] Address [address] [place] [address] Phone [phone] Care Team Providers Care Physics Teacher Name Role Phone Luis Fernando Rojas MD Primary Care Provider Reason for Visit * Reason Onset Date Comments Appointment 11/03/2024 Encounter Details Date Type Department Care Team (Late st Contact Info) Description 11/03/2024 Telephone [facility] [place] [facility] [address] [place] [phone] Vonda Morgan, MINISTERIO [address] [place] [address] Appointment (//) Allergies Active Allergy Reactions Criticality Noted Date Comments Salvador Inhibitors Other (Please comment),Cough High HyperKalemia documented as of this encounter (statuses as of 11/03/2024) Medications Melatonin 10 MG Tablet Take 12 [...] [facility] [place]) 7 Each 3 05/17/20 21 [...] A1c goal of less than 7.0% ([facility]) Use 4 times daily with [...] 1,000 mcgIndications:S/P gastric bypass 1000 mcg IM [id number] 10/15/2022 07/19/2025 Active vitamin b-12 (Cyanocobalamin) inj 1,000 mcgIndications:Morbid obesity with BMI of 40.0-44.9, adult (HCC),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 [id number] 10/17/2023 12/10/2024 Active Albuterol Sulfate (Proventil) (2.5 MG/3ML) 0.083% inhalation solution 2.5 mgIndications:Dyspnea and respiratory abnormalities 2.5 mg NEBULIZER PRN 10/28/2024 10/28/2025 Active Albuterol Sulfate (Proventil) (5 MG/ML) 0.5% *conc* inhalation solution 2.5 mgIndications:Dyspnea and respiratory abnormalities 2.5 mg NEBULIZER PRN 10/28/2024 10/28/2025 Active documented as of this encounter (statuses as of 11/03/2024) Active Problems Problem Noted Date Diagnosed Date [...] detachments not involving maculae 10/15/2022 MORFIN RESEARCH OTHER*[id number] 01/01/2022 S/P gastric bypass 01/01/2022 Dialysis AV [...] Assessment & Plan (05/07/2021 11:01 AM EDT): [facility] Dr. Magallanes. Renae-W-Briana from -5. Has dialysis catheter in the [...] as of this encounter (statuses as of 11/03/2024) Resolved Problems Problem Noted Date Diagnosed Date [...] Insulin long-term use 11/19/20182018 Overview (05/20/2019): Duplicate heavy mobile equipment repairer (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 insulin 11/19/2018 10/08/2022 Morbid [...] T-tube placement 04/16/2017 05/29/2017 [employer] Other*[id number] 04/13/2013 08/27/2016 Overview (04/13/2013): Study Title: Genomic Markers for Patients with Cardiovascular Disease Project # [id number] Jd Edwards Consultant: Siena Laws MD [phone] Hypertensive heart disease 03/25/2013 1 07/29/2016 Neuropathy, [...] as of this encounter (statuses as of 11/03/2024) Immunizations Name Administration Dates Next Due COVID-19 mRNA, LNP-s, No Pre serve, 2-Dose Series (Moderna) 04/09/2021,09/23/2020,08/19/2020 COVID-19, LNP-s, No Preserve , Espinoza-sucrose, Ages 12+ (Pfizer) 01/08/2022 COVID-19, MRNA-LNP, PF, 30 M CG/0.3 mL, 12 YRS AND ABOVE, IM (PFIZER-Comirnaty) 06/02/2024 HEPATITIS B VACCINE, RECOMB, 20 MCG/ML, ADULT (HEPLISAV-B) 09/05/2021,05/09/2021,04/04/2021,02/18 Hepatitis B, 20+ yrs 09/16/2018,04/14/2018,03/1104/11/2018 Pneumococcal Conjugate Vacci ne, 20-valent ([id number]) 06/22/2024,12/02/2023(Deferred: - pt states she's already received) [...] Telephone Encounter - Vonda Morgan OSA - 11/03/2024 1:10 PM EDT Dashboard request to schedule ret hv with Lawrence she has dialysis MWF so could not get in until 12/30@11am when calling her documented in this encounter Plan of Treatment Upcoming Encounters Date Type Department Care Team (Late st Contact Info) Description 11/04/2024 9:00 AM EDT Telemedicine Pharmacy, [address] [place] [phone] [facility] [address] [facility] [place] [address] 11/25/2024 7:30 AM EDT Imaging Vascular Lab, [facility] 2nd Floor, [place] [address] [place] [phone] 11/25/2024 10:00 AM EDT Imaging Radiology [facility] [address] [place] [phone] 11/25/2024 11:30 AM EDT Office Visit Pulmonary Medicine, [facility] [address] [place] [phone] Storm Jose MD [address] [place] [address] 11/25/2024 1:00 PM EDT PulmDiagnostic Pulmonary Function Lab, [facility] [address] [place] [phone] [place] [address] [place] [address] 11/30/2024 10:00 AM EDT Nurse Only Nutrition & Weight Management, [facility] [address] [place] [phone] [facility], Nurse Gi Nutrition [facility] [address] [facility] [place] [address] 12/02/2024 9:30 AM EDT Home Visit [facility] [address] [place] [address] Heidi Garcia, RN [address] [place] [address] 12/21/2024 10:30 AM EDT Office Visit Gastroenterology, [facility] [address] [place] [phone] Emi Queen CRNP [address] [place] [address] 12/21/2024 2:20 PM EDT Office Visit Family Practice, [place] [address] [facility] [place] [phone] Luis Fernando Rojas MD [address] [place] [address] 12/28/2024 10:00 AM EDT Cardiac Studies Cardiology, [facility] [address] [place] [phone] Susi Mi [facility] [address] [place] [address] 12/30/2024 11:00 AM EDT Home Visit [facility] [address] [place] [address] Jayro Bravo PA-C [address] [place] [address] 02/01/2025 8:20 AM EDT Office Visit Podiatry [facility] [address] [place] [phone] Calli Avila DPM [address] [place] [address] 03/10/2025 1:20 PM EDT Office Visit Dermatology, [place] [address] [address] [place] [phone] Joanne Parks, PALorieC [address] [place] [address] [place] [address] Scheduled Procedures Name Priority Associated Diagnoses Date/Ti [...] this encounter Medical Devices Implanted Type Area Wraparound Facilitator Device Identifier Shelf Expiration Date Model / Serial / Lot Coil Vortex 35 Pltinm [id number] - [id number] Implanted:Qty: 1 on 11/27/2021 by Sterling Cates MD at OR [facility] Right: Upper Arm [employer] : NEURO INTR [id number] 08/15/2024 [id number] / / [id number] Coil Vortex 35 Pltinm [id number] - [id number] Implanted:Qty: 1 on 11/27/2021 by Sterling Cates MD at OR [facility] Right: Upper Arm [employer] : NEURO INTR [id number] 08/15/2024 [id number] / / [id number] Coil Vortex 35 Pltinm [id number] - [id number] Implanted:Qty: 1 on 11/27/2021 by Sterling Cates MD at OR [facility] Right: Upper Arm [employer] : NEURO INTR [id number] 08/15/2024 [id number] / / [id number] Coil Vortex 35 Pltinm [id number] - [id number] Implanted:Qty: 1 on 11/27/2021 by Sterling Cates MD at OR [facility] Right: Upper Arm [employer] : NEURO INTR [id number] 05/16/2024 [id number] / [id number] Azur 35 Detachable 5mm 11cm - [id number] Implanted:Qty: 1 on 03/19/2022 by Jose Devine MD at OR [facility] Right: Wrist [employer] [id number] 10/18/2025 [id number] / / [id number] Azur 35 Detachable 5mm 11cm - [id number] Implanted:Qty: 1 on 03/19/2022 by Jose Devine MD at OR [facility] Right: Wrist [employer] [id number] 06/19/2026 [id number] / / [id number] Mesh Flat Sheet 10x14 [id number] - [id number] Implanted:Qty: 1 on 12/11/2022 by Eros Dash MD at OR [facility] N/A: Abdomen CR BARD : DAVOL [id number] 06/17/2027 [id number] / / [id number] Defib Marianna Mri Director Specialty-D - [id number] Implanted:Qty: 1 on 10/07/2024 by Arianne Carrizales IV, MD at [facility] [employer] : CRM 07/03/2025 [id number] / [id number] / [id number] Envelope Antibacteral Tyrx - [id number] Implanted:Qty: 1 on 10/07/2024 by Arianne Carrizales IV, MD at [facility] [employer] : CRM [id number] 06/02/2025 [id number] / / [id number] Lead Defib Sprint 6935m-62 - [id number] Implanted:Qty: 1 on 10/07/2024 by Arianne Carrizales IV, MD at [facility] [employer] : CRM [id number] 08/03/2026 [id number] 62 / [id number] / [id number] documented as of this encounter Advance Directives Documents on File Type Date Recorded Patient Leather Products Supervisor Expl anation POLST 11/13/2020 POLST [place] [...] Finley Spouse Health Care Agent Care Teams Physics Teacher Relationship Specialty Start Date End Date Luis Fernando Rojas MD [address] [place] [address] PCP - General Family Medicine 09/23/16 documented as of this encounter
[2024-11-04 05:25] LABS: Albumin Level 3.9 gm/dl (3.4-5.0); Bilirubin,Total 0.4 mg/dl (0.2-1.0); Calcium 10.2 mg/dl (8.6-10.3); Magnesium 2.3 mg/dl (1.7-2.4); Potassium 3.9 mmol/L (3.5-5.1)
[2024-11-04 05:31] LABS: Albumin Globulin Ratio 1.4 (0.9-2); BUN Creatinine Ratio 5.7 (10-20); Creatinine Clr Calc Pharmacy 19.1 ml/min; Globulin 2.7 gm/dl (2.5-4.0); Phosphorus 4.1 mg/dl (2.5-4.9); Total Protein 6.6 gm/dl (6.0-8.3)
[2024-11-04] MEDS: LEVOTHYROXINE SODIUM 100 MCG TABLET PO SCH (06:25)
[2024-11-04] MEDS ORDERED: ICU Protocol for HYPERglycemia SCH (07:30)
--- NOTE | 2024-11-04 08:30 | Critical Care Progress Note ---
Date of Service November 04, 2024 Assessment & Plan (1) Ventricular tachycardia: (2) Mitral regurgitation and mitral stenosis: (3) ESRD (end stage renal disease) on dialysis: (4) Pacemaker: (5) MINISTERIO on CPAP: (6) Diabetes mellitus, type II: Plan Reason Critically Ill: 63 YOF requiring defibrilation by her AICD x2 today. To the ICU for continued antiarrhythmic therapy, telemetry and hemodynamic monitoring. Neuro - No acute needs CAM ICU: NEGATIVE Cardiac - V-tach, Anti-arrhythmic Therapy: Hx of HTN, Mitral regurge with stenosis, HfpEF, - patient had multiple episodes today of VT/torsades- she was loaded with amiodarone and BB therapy as well as magnesium- has not had further ectopy or arrythmia since. - Had her AICD re-programmed by Cards/EP- See separate note - Continue with amiodarone - If refractory arrhythmia this evening consider esmolol with vasopressors if needed to maintain perfusion - As she has just had cath without occlusive disease a few weeks ago- doubt cause is ischemic - Most likely cause is electrolyte shifts following dialysis Respiratory - MINISTERIO - CPAP of 11cm at night - continue GI - No acute needs - N/V- received 1 dose of Zofran in ER- hold on further - provide PPI - NPO with sips and chips for tonight and clears in morning until proven stable without plans for any interventions - Wait for cardiology to advance diet RENAL/LYTES - ESRD - On dialysis MWF - follow electrolytes- goal MG > 2.0, K ~4.0 - No acute needs ENDO - DMII - ICU hyperglycemic protocol - she already took her basal insulin for the day HEME - NO acute needs ID - NO concern at this time for infective etiology LINES/IV ACCESS - PIV x2 Continue use of these lines DVT PROPHYLAXIS - SCDS, Heparin 5000 units sub q DISPO: Discussed with cardiology stable for downgrade out of ICU. Admission and Anticipated Discharge Date Admission Date: November 03, 2024 Subjective No overnight events, remains 100% paced Patient without chest pain shortness of breath feels that normal baseline of health. Hopes to avoid fainting spells and any discharges from the defibrillator in the future. Physical Exam Physical Exam: General: Alert. nontoxic. Skin: Warm, dry, Head: Atraumatic Ears, nose, mouth and throat: airway patent Cardiovascular: Normal peripheral perfusion Respiratory: no respiratory distress Gastrointestinal: Non distended Musculoskeletal: No deformity Results & Data Results & Data Vital Signs (Past 12 Hours) Vital Signs Temp Pulse Pulse Resp BP BP Pulse Ox 11/04/24 06:00 80 12 109/46 L 90 11/04/24 05:00 87 20 128/58 L 93 11/04/24 04:00 80 13 117/56 L 93 11/04/24 04:00 36.6 C 11/04/24 03:45 80 13 92 11/04/24 03:01 81 23 125/63 96 11/04/24 02:00 80 14 139/68 93 11/04/24 01:01 80 17 111/57 L 94 11/04/24 00:06 36.9 C 83 15 120/58 L 95 11/04/24 00:00 80 11/03/24 23:00 80 12 122/61 90 11/03/24 22:44 80 19 90 11/03/24 22:01 81 14 132/65 94 11/03/24 21:39 11/03/24 21:01 81 11/03/24 20:58 36.6 C 82 20 123/69 98 11/03/24 20:40 36.6 C 83 20 123/69 98 11/03/24 20:35 80 16 148/79 H 98 O2 Del Method O2 Flow Rate 11/04/24 06:00 CPAP 11/04/24 05:00 CPAP 11/04/24 04:00 CPAP 11/04/24 04:00 11/04/24 03:45 11/04/24 03:01 CPAP 11/04/24 02:00 CPAP 11/04/24 01:01 CPAP 2 11/04/24 00:06 CPAP 2 11/04/24 00:00 11/03/24 23:00 CPAP 11/03/24 22:44 11/03/24 22:01 Room Air 11/03/24 21:39 Nasal Cannula 2 11/03/24 21:01 11/03/24 20:58 Nasal Cannula 2 11/03/24 20:40 Nasal Cannula 2 11/03/24 20:35 Nasal Cannula 2 Critical Care Results & Data Vital Signs (Past 12 Hours) Vital Signs Temp Pulse Pulse Resp BP BP Pulse Ox 11/04/24 06:00 80 12 109/46 L 90 11/04/24 05:00 87 20 128/58 L 93 11/04/24 04:00 80 13 117/56 L 93 11/04/24 04:00 36.6 C 11/04/24 03:45 80 13 92 11/04/24 03:01 81 23 125/63 96 11/04/24 02:00 80 14 139/68 93 11/04/24 01:01 80 17 111/57 L 94 11/04/24 00:06 36.9 C 83 15 120/58 L 95 11/04/24 00:00 80 11/03/24 23:00 80 12 122/61 90 11/03/24 22:44 80 19 90 11/03/24 22:01 81 14 132/65 94 11/03/24 21:39 11/03/24 21:01 81 11/03/24 20:58 36.6 C 82 20 123/69 98 11/03/24 20:40 36.6 C 83 20 123/69 98 11/03/24 20:35 80 16 148/79 H 98 O2 Del Method O2 Flow Rate 11/04/24 06:00 CPAP 11/04/24 05:00 CPAP 11/04/24 04:00 CPAP 11/04/24 04:00 11/04/24 03:45 11/04/24 03:01 CPAP 11/04/24 02:00 CPAP 11/04/24 01:01 CPAP 2 11/04/24 00:06 CPAP 2 11/04/24 00:00 11/03/24 23:00 CPAP 11/03/24 22:44 11/03/24 22:01 Room Air 11/03/24 21:39 Nasal Cannula 2 11/03/24 21:01 11/03/24 20:58 Nasal Cannula 2 11/03/24 20:40 Nasal Cannula 2 11/03/24 20:35 Nasal Cannula 2 Lab & Micro Results (Past 24 Hours) RBC 2.92 M/uL (4.20-5.40) L 11/04/24 WBC 8.64 K/ul (4.8-10.8) 11/04/24 Hgb 8.9 g/dl (12.0-16.0) L 11/04/24 Hct 28.5 % (37.0-47.0) L 11/04/24 MCV 97.6 fL (80.0-100.0) 11/04/24 MCH 30.5 pg (25.0-34.0) 11/04/24 MCHC 31.2 g/dL (32.0-36.0) L 11/04/24 RDW Standard Deviation 53.5 fL (36.4-46.3) H 11/04/24 RDW Coefficient of Variation 14.8 % (11.5-14.5) H 11/04/24 Plt Count 158 K/uL (130-400) 11/04/24 MPV 11.1 fL (9.4-12.4) 11/04/24 Neutrophils (%) (Auto) 57.8 % 11/04/24 Lymphocytes (%) (Auto) 30.1 % 11/04/24 Monocytes # (Auto) 0.75 K/uL (0.11-0.59) H 11/04/24 Eosinophils # (Auto) 0.19 K/uL (0.00-0.50) 11/04/24 Immature Granulocyte % (Auto) 0.3 % 11/04/24 Neutrophils # (Auto) 4.99 K/uL (1.40-6.50) 11/04/24 Lymphocytes # (Auto) 2.60 K/uL (1.20-3.40) 11/04/24 Monocytes # (Auto) 0.75 K/uL (0.11-0.59) H 11/04/24 Eosinophils # (Auto) 0.19 K/uL (0.00-0.50) 11/04/24 Basophils # (Auto) 0.08 K/uL (0.00-0.20) 11/04/24 Immature Granulocyte # (Auto) 0.03 K/uL (0.01-0.20) 5 Na 136 mmol/L (136-145) 11/04/24 K 3.9 mmol/L (3.5-5.1) 11/04/24 Cl 93 mmol/L (98-107) L 11/04/24 CO2 36 mmol/L (21-32) H 11/04/24 Anion Gap 7 (3-11) 11/04/24 BUN 19 mg/dl (6-23) 11/04/24 Creatinine 3.31 mg/dl (0.6-1.2) H 11/04/24 BUN/Creatinine Ratio 5.7 (10-20) L 11/04/24 Glu 212 mg/dl (70-99(Fasting)) H 11/04/24 Ca 10.2 mg/dl (8.6-10.3) 11/04/24 Phosphorus Level 4.1 mg/dl (2.5-4.9) 11/04/24 Total Bilirubin 0.4 mg/dl (0.2-1.0) 11/04/24 AST 20 U/L (13-39) 11/04/24 ALT 17 U/L (7-52) 11/04/24 Alkaline Phosphatase 123 U/L (34-104) H 11/04/24 TP 6.6 gm/dl (6.0-8.3) 11/04/24 Albumin 3.9 gm/dl (3.4-5.0) 11/04/24 Globulin 2.7 gm/dl (2.5-4.0) 11/04/24 Albumin/Globulin Ratio 1.4 (0.9-2) 11/04/24 Mg 2.3 mg/dl (1.7-2.4) 11/04/24 04:50 Calcium Level 10.2 mg/dl (8.6-10.3) 11/04/24 04:50 Prothromb Time International Ratio 1.0 (0.9-1.1) 11/03/24 16:0 9 Diagnostic Findings (Past 24 Hours) Chest X-Ray 11/03/24 16:33 Chest radiograph, one view History: Chest pain Comparison: October 04, 2024 Findings: Lungs: Appearance of mild diffuse pulmonary edema likely related to CHF. No pulmonary mass density. Pleural space: Unremarkable. No pneumothorax or pleural fluid. Heart: Cardiomegaly. Mediastinum: Unremarkable. Normal mediastinal contour. Bones/joints: No acute findings. Tubes, lines and devices: Stable implanted cardiac pacer. IMPRESSION: Cardiomegaly with evidence of early CHF, similar to prior. Electronically signed by Regis Akbar 11-03-2024 5:26 PM I & O Totals 24 Hours 11/03/24 11/04/24 11/05/24 06:59 06:59 06:59 Intake Total 1080 / 1080 Output Total 150 / 150 Balance 930 / 930 Cumulative 11/03/24 15:27 thru 11/04/24 06:01 Intake Total 1080 Output Total 150 Balance 930 RT Ventilator Mngmt (Last Documented) Ventilator Ordered Settings Respiratory Rate 12 11/04/24 06:00 Ventilator - PT Measurements Respiratory Rate 12 Coding Level of Care Code 38777 SUB INP/OBS CARE 3/50MIN Diagnoses Ventricular tachycardia I47.20 Nonrheumatic mitral valve stenosis with insufficiency I34.2; I34.0 Cardiac valve disease etiology: nonrheumatic ESRD (end stage renal disease) on dialysis N18.6; Z99.2 Pacemaker Z95.0 MINISTERIO on CPAP G47.33; Z99.89 Diabetes mellitus, type II E11.9 (2) Mitral regurgitation and mitral stenosis Cardiac valve disease etiology: nonrheumatic Qualified Code(s): I34.2 - Nonrheumatic mitral (valve) stenosis; I34.0 - Nonrheumatic mitral (valve) insufficiency
[2024-11-04] MEDS: LANTUS PER UNIT CHARGE SQ SCH (08:52)
[2024-11-04] MEDS: CALCIUM ACETATE 667 MG CAP/TAB PO SCH (08:53)
[2024-11-04] MEDS: HEPARIN SOD 5,000 UNIT/0.5 ML VIAL SQ SCH (08:53)
[2024-11-04] MEDS: CALCIUM 600MG + VIT D 400 IU TAB PO SCH (08:54)
[2024-11-04] MEDS: CITALOPRAM 20 MG TAB PO SCH (08:55)
[2024-11-04] MEDS: PANTOprazole 40 MG TAB PO SCH (08:55)
[2024-11-04] MEDS: CHOLECALCIFEROL 125 MCG (5,000 UNITS) TAB PO SCH (08:55)
[2024-11-04] MEDS: MULTIVITAMIN CHEWABLE TAB PO SCH (08:56)
[2024-11-04] MEDS: NEPHROCAPS PO SCH (08:57)
[2024-11-04] MEDS ORDERED: amLODIPine BESYLATE 5 MG TAB PO SCH (09:00)
[2024-11-04] MEDS ORDERED: NON-FORMULARY MEDICATION (Omeprazole 20 mg Capsule,Delayed Release(Dr/Ec)) PO SCH (09:00)
--- NOTE | 2024-11-04 10:15 | Nephrology Consultation ---
Date of Consultation November 04, 2024 Assessment & Plan (1) ESRD (end stage renal disease) on dialysis: on OP HD MWF > may be worth a trial of longer/slower/more frequent HD as below>> -trial this in house and work w/ OP unit as well; consider HHD longer term potentially K 3.9; hgb 8.9 >daily hgb, mag, bmp; added iron stores for am >on clear liquid diet so no FR at this time >next HD on 11/05 as below Care coordinated w/ Dr Stevenson via phone re timing of next HD and plans for trial slower/gentler HD rx; we are in agreement. (2) Ventricular tachycardia: cardiology working out best combination >> ? amio and BB or BB alone or other episodes happen consistently on HD days a few hours after finishing treatment > ? if trial of slower/gentler (ie, longer/more frequent) HD would be better tolerated. normally runs 3h45m. trial longer tx tomorrow 4h15m as tolerated w/ lower flows. (3) Mitral regurgitation and mitral stenosis: not a surgical candidate unless absolutely failing conservative mgt (4) Hypertension: History of Present Illness Reason for Consultation: ESRD on Dialysis Requesting Physician: Dr Rivera Attending Physician: Rosa Rivera MD History of Present Illness 63 y/o F whom I'm asked to see for ESRD on HD was admitted to the ICU last night for ventricular tachycardia and AICD discharge after presenting with multiple presyncopal episodes at home. PMH includes type 2 diabetes w/ diabetic polyneuropathy/retinopathy/gastroparesis, HFpEF Class III NYHA sx, severe mitral rgg w/ MS, mild AI/ASSSS s/p pacemaker placement w/ recent upgrade September 2024, paroxysmal atrial tachycardia, ESRD on HD via R AVF, MINISTERIO on CPAP, plm HTN, HTN, hypothyroidism, GERD, morbid obesity status post gastric bypass, depression, history of endometrial cancer, CHIDI inhibitor intolerance, HL, recurrent ventral incisional hernia. She dialyzes MWF at [facility] under the care of my partner Dr Hassan. She was admitted here 10/04/24 w/ similar issues; then transferred to [facility] for 9 day admission including AICD upgrade c/b post procedural flash pulmonary edema and multidisciplinary review of mitral valve disease, ultimately deemed too high risk for MV surgery, though this could be revisited if failing conservative mgt. Yesterday she had dialysis per routine; felt poorly but no specific sx after treatment and went to bed; woke feeling worse yet at about 1430; then several other near-syncopal sensations called 911 > found to have had appropriate AICD shock at 1430, same time as her symptoms. another such episode occurred in ED yesterday evening at about 1900 despite amio gtt. She received IV metoprolol and magnesium, though mag, K, Ca levels were all essentially optimal on presentation. Had had only 1 L UF at HD b/c had also had tx day prior. 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 Does not endorse new/worrisome voiding sx; no n/v/abd pain/d; breathing ok outside of presyncopal spells. no recent f/c or acute illness. palpitations/malaise as above. Allergies Allergy/AdvReac Type Severity Reaction Status Date / Time CHIDI Inhibitors AdvReac Intermediate COUGH Verified 11/03/24 17:19 Home Medications Medication Instructions Recorded Confirmed Type amlodipine 5 mg tablet 5 mg PO QAM 30 days #30 tabs 01/16/24 11/03/24 Rx aspirin 81 mg chewable tablet 81 mg PO HS 30 days #30 tabs 01/16/24 11/03/24 Rx calcium acetate 667 mg tablet 2,001 mg (3 x 667 mg) PO TIDM 30 01/16/24 11/03/24 Rx days #90 tabs citalopram 40 mg tablet 20 mg (1/2 x 40 mg) PO QAM 30 days 01/16/24 11/03/24 Rx #30 tabs cyanocobalamin (vitamin B-12) 1,000 mcg IM Q90D 30 days #1 mL 01/16/24 11/03/24 Rx 1,000 mcg/mL injection solution melatonin 10 mg tablet 10 mg PO HS 30 days #30 tabs 01/16/24 11/03/24 Rx insulin lispro 100 unit/mL See Rx Instructions .Route .COMPLEX 07/07/24 11/03/24 History subcutaneous solution acetaminophen 325 mg tablet 650 mg PO Q6H PRN PAIN/FEVER 10/04/24 11/03/24 History (Tylenol) albuterol sulfate 0.63 mg/3 mL 0.63 mg inhalation Q6H PRN Wheezing 10/04/24 11/03/24 History solution for nebulization atorvastatin 40 mg tablet 40 mg PO QPM 10/04/24 11/03/24 History biotin 10 mg tablet 10 mg PO DAILY 10/04/24 11/03/24 History calcium 600 mg (as 1 tab PO BID ##0 10/04/24 11/03/24 History carbonate)-vitamin D3 5 mcg (200 unit) tablet cholecalciferol (vitamin D3) 125 125 mcg PO DAILY 10/04/24 11/03/24 History mcg (5,000 unit) tablet (Vitamin D3) colestipol 1 gram tablet 2 g PO QDL PRN Diarrhea 10/04/24 11/03/24 History diclofenac sodium 1 % topical gel 2 g topical TID PRN Pain 10/04/24 11/03/24 History gabapentin 300 mg capsule 300 mg PO HS 10/04/24 11/03/24 History insulin glargine 100 unit/mL (3 10 unit subcut QAM 10/04/24 11/03/24 History mL) subcutaneous pen (Lantus Solostar U-100 Insulin) levothyroxine 100 mcg tablet 100 mcg PO DAILYBB 10/04/24 11/03/24 History nitroglycerin 0.4 mg sublingual 0.4 mg sublingual DIRECTED PRN 10/04/24 11/03/24 History tablet (Nitrostat) CHEST PAIN omeprazole 20 mg capsule,delayed 20 mg PO DAILY 10/04/24 11/03/24 History release pediatric multivitamin 1 tab PO BID 10/04/24 11/03/24 History tramadol 50 mg tablet 50 mg PO Q4H PRN Pain 10/04/24 11/03/24 History vit B complx, C-iron 8 mg-folic 1 tab PO DAILY 10/04/24 11/03/24 History acid 800 mcg-D3 1,000 unit-zinc tablet (ProRenal) midodrine 5 mg tablet 5 mg PO DIRECTED 11/03/24 11/03/24 History Patient History Medical History ESRD (end stage renal disease) on dialysis Peripheral neuropathy bilateral legs/feet Anxiety History of anesthesia reaction woke up during hysterectomy in 1995 Hiatal hernia Osteoarthritis Degenerative disc disease Chronic back pain Post traumatic stress disorder History of anesthesia reaction when had port inserted needed more medication and could feel everything GERD (gastroesophageal reflux disease) Surgical History History of colonoscopy S/P left knee arthroscopy S/P right knee arthroscopy H/O radical excision of skin lesion melanoma S/P cardiac pacemaker procedure medtronic device, last checked ~2 months ago. Follows with Dr Stevenson S/P arteriovenous (AV) fistula creation Right arm History of vitrectomy History of cataract surgery bilateral History of adenoidectomy History of tonsillectomy H/O umbilical hernia repair open (~November 2022 [facility]) --> went to [facility] for rehab therapy for about 2 weeks. S/P dialysis catheter insertion right side of chest (since removed) S/P [place]-BSO H/O hernia repair Hx of gastric bypass History of cholecystectomy Hx of cardiac cath "2012, negative for CAD " Family History Other Colonic polyp GERD (gastroesophageal reflux disease) No family history of adverse response to anesthesia Social History Smoking Status: Never smoker Second Hand Exposure: No; Do You Dip or Chew Tobacco: No; Hx Alcohol Use: No Hx Substance Use: No Preferred Language: Citizen Of [place] Communication Ability: Effective Dish Washer Required: No Beliefs That Will Affect Care: None marital status: Current Living Situation: Spouse Current Living Situation Comment: lives with Other Information That Helps Us Care for You: No Feels Safe at Home: Yes Safety Concerns: Feels Safe At This Time Assistive Devices: Cane, CPAP, Nebulizer and Walker Review of Systems 2 Review of Systems: All systems reviewed & are unremarkable except as noted in Subjective Physical Exam 2 Constitutional: well developed (sitting in bed on 02nc), well nourished and + obese; no acute distress Eyes: EOM intact bilaterally ENMT: Ears: no external ear abnormality Nose: no external nose abnormality Mouth: + dry oral mucous membranes Neck: no nuchal rigidity Respiratory: normal respiratory effort Auscultation: + diminished lung sounds Cardiovascular: Rate/Rhythm: regular rate and regular rhythm Extremities: + AV fistula (+t/b); no edema Gastrointestinal (Abdomen): Inspection/Auscultation: normal bowel sounds P ercussion/Palpation: abdomen soft; abdomen nontender Musculoskeletal: Extremities: strength 5/5 throughout Skin: no rashes, warm and dry Neurologic: yancey, fluent speech, no tremor Psychiatric: Orientation: alert and oriented x 3 Results & Data Vital Signs (Past 12 Hours) Vital Signs Temp Pulse Pulse Resp BP BP Pulse Ox 11/04/24 09:55 11/04/24 09:00 80 17 118/75 97 11/04/24 08:21 80 15 99 11/04/24 08:00 80 11/04/24 07:00 80 14 117/53 L 100 11/04/24 06:00 80 12 109/46 L 90 11/04/24 05:00 87 20 128/58 L 93 11/04/24 04:00 80 13 117/56 L 93 11/04/24 04:00 36.6 C 11/04/24 03:45 80 13 92 11/04/24 03:01 81 23 125/63 96 11/04/24 02:00 80 14 139/68 93 11/04/24 01:01 80 17 111/57 L 94 11/04/24 00:06 36.9 C 83 15 120/58 L 95 11/04/24 00:00 80 11/03/24 23:00 80 12 122/61 90 11/03/24 22:44 80 19 90 O2 Del Method O2 Flow Rate 11/04/24 09:55 Room Air, CPAP 11/04/24 09:00 11/04/24 08:21 11/04/24 08:00 11/04/24 07:00 11/04/24 06:00 CPAP 11/04/24 05:00 CPAP 11/04/24 04:00 CPAP 11/04/24 04:00 11/04/24 03:45 11/04/24 03:01 CPAP 11/04/24 02:00 CPAP 11/04/24 01:01 CPAP 2 11/04/24 00:06 CPAP 2 11/04/24 00:00 11/03/24 23:00 CPAP 11/03/24 22:44 Laboratory Results 11/04/24 04:50 11/04/24 04:50 mag 2.3 Diagnostic Findings 11/04/24 04:50 11/04/24 04:50 (3) Mitral regurgitation and mitral stenosis Cardiac valve disease etiology: nonrheumatic Qualified Code(s): I34.2 - Nonrheumatic mitral (valve) stenosis; I34.0 - Nonrheumatic mitral (valve) insufficiency (4) Hypertension Hypertension type: primary hypertension Qualified Code(s): I10 - Essential (primary) hypertension
--- NOTE | 2024-11-04 10:38 | Cardiology Progress Note ---
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 dose 5 mg by mouth daily, even on HD days) * start metoprolol succinate 25 mg daily in am with hold for SBP < 90 mm Hg * Continue IV amiodarone for now * Basal pacer rate increased from 60 bpm to 80 bpm on 11/03 with hopes to suppress VT * Will discuss case with nephrology * (2) Mitral regurgitation and mitral stenosis: Plan: * Moderate MS, severe MR , h/o flash pulmonary edema * VT events do not seem to be associated with volume overload * Daily , activity limited OLSON may be related to mitral valve disease but felt to be a very high risk surgical candidate, and am no confident that MVR would improve rhythm issue (in turn arrhythmia with open heart surgery may be fatal) thus her case poses many challenges Case discussed with Dr Oswald of critical care medicine and patient's nurse, for the purpose of coordination of care. Patient appears stable for discharge to PCU , but anticipate need to stay in hospital through recovery from next dialysis session , Zhen ,at the bedside . Updated provided. Angel Stevenson DO Cardiology Admission and Anticipated Discharge Date Admission Date: November 03, 2024 Subjective Patient seen in cardiology follow up in ICU room 101. Rested well for 3 hours overnight. Received CPAP as per home routine. Denies symptoms of respiratory distress or recurrent syncope / near syncope. Review of Systems Review of Systems: All systems reviewed & are unremarkable except as noted in HPI & below Physical Exam Physical Exam: Temp Pulse Resp BP Pulse Ox O2 Del Method O2 Flow Rate 36.6 C 80 17 118/75 97 Room Air, CPAP 2 11/04/24 04:00 11/04/24 09:00 11/04/24 09:00 11/04/24 09:00 11/04/24 09:00 11/04/24 09:55 11/04/24 01:01 Constitutional: WD/WN, vitals as above no acute distress Eyes: PERRL, conjunctivae normal, anicteric sclerae Respiratory: normal respiratory effort, lungs clear to auscultation Auscultation: no rales, no rhonchi and no wheezes Cardiovascular: Rate/Rhythm: regular rate and regular rhythm Heart Sounds: normal S1, normal S2 and + murmur (I/IV SM ) Vessels: no JVD Extremities: no edema Chest (Breasts): Chest: + pacemaker (AICD pocket clean, dry, intact ) Gastrointestinal (Abdomen): normal bowel sounds, soft, nontender, no hepatosplenomegaly Skin: no rashes, warm and dry Neurologic: PERRL, EOMI, accommodation nl, no face palsy, no dysarthria Results & Data Vital Signs (Past 12 Hours) Vital Signs Temp Pulse Pulse Resp BP BP Pulse Ox 11/04/24 09:55 11/04/24 09:00 80 17 118/75 97 11/04/24 08:21 80 15 99 11/04/24 08:00 80 11/04/24 07:00 80 14 117/53 L 100 11/04/24 06:00 80 12 109/46 L 90 11/04/24 05:00 87 20 128/58 L 93 11/04/24 04:00 80 13 117/56 L 93 11/04/24 04:00 36.6 C 11/04/24 03:45 80 13 92 11/04/24 03:01 81 23 125/63 96 11/04/24 02:00 80 14 139/68 93 11/04/24 01:01 80 17 111/57 L 94 11/04/24 00:06 36.9 C 83 15 120/58 L 95 11/04/24 00:00 80 11/03/24 23:00 80 12 122/61 90 11/03/24 22:44 80 19 90 O2 Del Method O2 Flow Rate 11/04/24 09:55 Room Air, CPAP 11/04/24 09:00 11/04/24 08:21 11/04/24 08:00 11/04/24 07:00 11/04/24 06:00 CPAP 11/04/24 05:00 CPAP 11/04/24 04:00 CPAP 11/04/24 04:00 11/04/24 03:45 11/04/24 03:01 CPAP 11/04/24 02:00 CPAP 11/04/24 01:01 CPAP 2 11/04/24 00:06 CPAP 2 11/04/24 00:00 11/03/24 23:00 CPAP 11/03/24 22:44 Laboratory Results Cardiac Enzymes 11/03/24 11/03/24 11/04/24 Range/Units 16:09 23:24 04:50 AST 27 20 (13-39) U/L Troponin I High Sens 16.1 H 27.0 H D (0-14) pg/ml Coagulation 11/03/24 Range/Units 16:09 PT 10.8 (9.0-12.0) Seconds CBC 11/03/24 11/04/24 Range/Units 16:09 04:50 WBC 8.54 8.64 (4.8-10.8) K/ul RBC 3.10 L 2.92 L (4.20-5.40) M/uL Hgb 9.7 L 8.9 L (12.0-16.0) g/dl Hct 30.0 L 28.5 L (37.0-47.0) % Plt Count 170 158 (130-400) K/uL Neut # (Auto) 5.65 4.99 (1.40-6.50) K/uL Lymph # (Auto) 1.76 2.60 (1.20-3.40) K/uL Dale # (Auto) 0.76 H 0.75 H (0.11-0.59) K/uL Eos # (Auto) 0.27 0.19 (0.00-0.50) K/uL Baso # (Auto) 0.08 0.08 (0.00-0.20) K/uL Comprehensive Metabolic Panel 11/03/24 11/04/24 Range/Units 16:09 04:50 Sodium 138 136 (136-145) mmol/L Potassium 3.8 3.9 (3.5-5.1) mmol/L Chloride 92 L 93 L (98-107) mmol/L Carbon Dioxide 38 H 36 H (21-32) mmol/L BUN 13 19 (6-23) mg/dl Creatinine 2.62 H 3.31 H D (0.6-1.2) mg/dl Glucose 267 H 212 H (70-99(Fasting)) mg/dl Calcium 9.8 10.2 (8.6-10.3) mg/dl AST 27 20 (13-39) U/L ALT 21 17 (7-52) U/L Alkaline Phosphatase 128 H 123 H (34-104) U/L Total Protein 7.2 6.6 (6.0-8.3) gm/dl Albumin 4.1 3.9 (3.4-5.0) gm/dl Intake and Output 11/03/24 11/04/24 11/04/24 22:59 06:59 14:59 Intake Total 700 / 1080 380 / 1080 Output Total 150 / 150 Balance 700 / 930 230 / 930 Intake: IV 700 / 900 200 / 900 Amiodarone / D5w 150 mg In 100 100 / 100 ml @ 600 mls/hr IV NOW STA Rx#: [id number] Amiodarone / D5w 360 mg In 200 200 / 200 ml @ 1 MG/MIN 33.333 mls/hr IV ONE ONE Rx#:[id number] Magnesium Sulfate / D5w 1 gm In 100 / 100 100 ml @ 50 mls/hr IV ONE ONE Rx#:[id number] Sodium Chloride 0.9% 500 ml @ 500 / 500 999 mls/hr IV .Q31M ONE Rx#: [id number] Oral 180 / 180 Output: Urine 150 / 150 Other: Other Intake Source sips # Unmeasured Voids 0 1 Weight 100.3 kg 100.5 kg Weight Measurement Method [facility] (2) Mitral regurgitation and mitral stenosis Cardiac valve disease etiology: nonrheumatic Qualified Code(s): I34.2 - Nonrheumatic mitral (valve) stenosis; I34.0 - Nonrheumatic mitral (valve) insufficiency
[2024-11-04] MEDS: METOPROLOL SUCC 25MG EXT REL TAB PO SCH (10:55)
--- NOTE | 2024-11-04 12:21 | Hospitalist Progress Note ---
Date of Service November 04, 2024 Assessment & Plan (1) Ventricular tachycardia: Plan Pt is a 63-year-old female with past medical history significant for sick sinus syndrome s/p pacemaker placement with recent ICD upgrade in September of 2024, type 2 diabetes, diabetic polyneuropathy, end-stage renal disease on hemodialysis, dyslipidemia, hypothyroidism, diabetic gastroparesis, diabetic retinopathy, obstructive sleep apnea on CPAP, chronic diastolic CHF, pulmonary hypertension, hypertension, GERD, morbid obesity, status post gastric bypass, depression, history of endometrial cancer, CHIDI inhibitor intolerance, recurrent ventral incisional hernia who presents with multiple episodes of near syncope after dialysis today. Ventricular Tachycardia Presyncope Pt noting frequent episodes at home Multiple episodes in the ED, pt remained hemodynamically stable Cardiology consulted, appreciate recs -amiodarone drip -doses of Lopressor and Magnesium given in the ED -s/p AICD adjustment by EP -echo pending -started on metoprolol succinate 25mg daily Continue to monitor in the ICU Chronic Anemia Hgb 9.7 At baseline Continue to monitor H/H DMII ICU protocol for hyperglycemia ESRD on dialysis Follows with [facility] Nephrology Had dialysis the day of admission Continue to monitor Continue other home meds as ordered Diet: clears at this time DVT prophylaxis: heparin SQ Dispo: admit to the ICU Admission and Anticipated Discharge Date Admission Date: November 03, 2024 Subjective Pt was seen around midday. Alert, oriented, denied acute concerns. Stated that she was much better than the day before. Case discussed with her marine plumber Dr Stevenson. Review of Systems Review of Systems: All systems reviewed & are unremarkable except as noted in Subjective Physical Exam Physical Exam: General: Alert, oriented HEENT: clear conjunctiva, oropharynx dry Neuro: No gross deficits HEENT: NC/AT CV: RRR Resp: Breath sounds clear bilaterally, no increased effort of breathing Abdomen: Soft, nontender Extremities: No edema in lower extremities bilaterally. Results & Data Results & Data Vital Signs (Past 12 Hours) Vital Signs Temp Pulse Pulse Resp BP BP Pulse Ox 11/04/24 09:55 11/04/24 09:00 80 17 118/75 97 11/04/24 08:21 80 15 99 11/04/24 08:00 80 11/04/24 07:00 80 14 117/53 L 100 11/04/24 06:00 80 12 109/46 L 90 11/04/24 05:00 87 20 128/58 L 93 11/04/24 04:00 80 13 117/56 L 93 11/04/24 04:00 36.6 C 11/04/24 03:45 80 13 92 11/04/24 03:01 81 23 125/63 96 11/04/24 02:00 80 14 139/68 93 11/04/24 01:01 80 17 111/57 L 94 O2 Del Method O2 Flow Rate 11/04/24 09:55 Room Air, CPAP 11/04/24 09:00 11/04/24 08:21 11/04/24 08:00 11/04/24 07:00 11/04/24 06:00 CPAP 11/04/24 05:00 CPAP 11/04/24 04:00 CPAP 11/04/24 04:00 11/04/24 03:45 11/04/24 03:01 CPAP 11/04/24 02:00 CPAP 11/04/24 01:01 CPAP 2
[2024-11-04] MEDS ORDERED: SODIUM CHLORIDE 0.9% 1,000 ML IV PRN (13:17)
--- NOTE | 2024-11-04 13:33 | Electrocardiogram Report ---
Test Reason : Blood Pressure : */* mmHG Vent. Rate : 71 BPM Atrial Rate : 71 BPM P-R Int : 200 ms QRS Dur : 188 ms QT Int : 494 ms P-R-T Axes : 19 -61 87 degrees QTcB Int : 536 ms Atrial-sensed ventricular-paced rhythm Biventricular pacemaker detected Abnormal ECG When compared with ECG of 04-Oct-2024 20:07, Vent. rate has decreased by 9 bpm Confirmed by Regis Mayfield ([id number]) on 11/04/2024 1:33:18 PM Referred By: REFERRED SELF Confirmed By: Regis Mayfield
[2024-11-04] MEDS: ACETAMINOPHEN 325 MG TAB PO PRN (13:45)
[2024-11-04] MEDS: ASPIRIN 81 MG ECTAB PO SCH (20:44)
[2024-11-04] MEDS: ATORVASTATIN 40 MG TAB PO SCH (20:45)
[2024-11-04] MEDS: GABAPENTIN 300 MG CAP PO SCH (20:45)
[2024-11-04] MEDS: MELATONIN 3 MG TAB PO SCH (20:45)
[2024-11-05] MEDS: oxyCODONE HCL IR 5 MG TAB (IMMEDIATE RELEASE) PO PRN (02:00)
[2024-11-05 05:50] LABS: Hematocrit (blood only) 27.5 % (37.0-47.0); Hemoglobin 8.7 g/dl (12.0-16.0); Mean Corpuscular Hemoglobin 30.4 pg (25.0-34.0); Mean Corpuscular Hgb Conc 31.6 g/dL (32.0-36.0); Mean Corpuscular Volume 96.2 fL (80.0-100.0); Mean Platelet Volume 11.6 fL (9.4-12.4); Platelet Count 157 K/uL (130-400); RDW Coefficient of Variation 14.6 % (11.5-14.5); Red Blood Count 2.86 M/uL (4.20-5.40); White Blood Count 8.66 K/ul (4.8-10.8)
[2024-11-05 05:58] LABS: Albumin Level 3.4 gm/dl (3.4-5.0); Bilirubin,Total 0.5 mg/dl (0.2-1.0); Calcium 9.7 mg/dl (8.6-10.3); Magnesium 2.2 mg/dl (1.7-2.4); Potassium 4.4 mmol/L (3.5-5.1)
[2024-11-05 06:12] LABS: Albumin Globulin Ratio 1.4 (0.9-2); BUN Creatinine Ratio 5.1 (10-20); Creatinine Clr Calc Pharmacy 13.1 ml/min; Globulin 2.5 gm/dl (2.5-4.0); Phosphorus 4.7 mg/dl (2.5-4.9); Total Protein 5.9 gm/dl (6.0-8.3)
[2024-11-05] MEDS ORDERED: SODIUM CHLORIDE 0.9% 1,000 ML IV PRN ×2 (07:00→16:16)
[2024-11-05] MEDS: AMIODARONE 200 MG TAB PO ONE (08:30)
--- NOTE | 2024-11-05 10:37 | Cardiology Progress Note ---
Date of Service November 05, 2024 Assessment & Plan (1) Ventricular tachycardia: Plan: * Telemetry reveals AV sequential pacing at 80s bpm with no recurrent VT since AICD discharge that took place when I was at patient's bedside on 11/03/24 at 18:47 * Magnesium level 2.2 today * Discontinued amlodipine (SUPERVISOR TYPE PHOTOGRAPHY dose 5 mg by mouth daily, even on HD days) * started metoprolol succinate 25 mg daily in am with hold for SBP < 90 mm Hg * DC IV amiodarone as of am of 11/05 * Start amiodarone 400 mg PO BID with am / evening meals * Basal pacer rate increased from 60 bpm to 80 bpm on 11/03 with hopes to suppress VT * Will consider reducing rate back to 75 mg daily if HD goes well today. * Continue midodrine 5 mg am of HD days, with additional dose during session for SBP < 90 mm Hg. (2) Mitral regurgitation and mitral stenosis: Plan: * Normal LVEF,Moderate MS, severe MR , h/o flash pulmonary edema * Echo this admission unchanged compared to a month ago * Obstructive CAD excluded on cath at [facility] 09/2024 * VT events do not seem to be associated with volume overload * Daily , activity limited OLSON may be related to mitral valve disease but felt to be a very high risk surgical candidate, and am no confident that MVR would improve rhythm issue (in turn arrhythmia with open heart surgery may be fatal) thus her case poses many challenges Angel Stevenson DO Cardiology Admission and Anticipated Discharge Date Admission Date: November 03, 2024 Subjective Patient seen in cardiology follow up. Feeling well. No recurrent of syncope / near syncope. Physical Exam Physical Exam: Temp Pulse Resp BP Pulse Ox O2 Del Method O2 Flow Rate 36.5 C 80 22 127/67 97 Nasal Cannula 1 11/05/24 04:00 11/05/24 08:09 11/05/24 08:09 11/05/24 08:09 11/05/24 08:09 11/05/24 08:09 11/05/24 08:09 Constitutional: WD/WN, vitals as above no acute distress Eyes: PERRL, conjunctivae normal, anicteric sclerae Respiratory: normal respiratory effort, lungs clear to auscultation Auscultation: no rales, no rhonchi and no wheezes Cardiovascular: Rate/Rhythm: regular rate and regular rhythm Heart Sounds: normal S1, normal S2 and + murmur (I/IV SM ) Vessels: no JVD Extremities: no edema Chest (Breasts): Chest: + pacemaker (AICD pocket clean, dry, intact ) Gastrointestinal (Abdomen): normal bowel sounds, soft, nontender, no hepatosplenomegaly Skin: no rashes, warm and dry Neurologic: PERRL, EOMI, accommodation nl, no face palsy, no dysarthria Results & Data Laboratory Results Temp Pulse Resp BP Pulse Ox O2 Del Method O2 Flow Rate 36.5 C 80 22 127/67 97 Nasal Cannula 1 11/05/24 04:00 11/05/24 08:09 11/05/24 08:09 11/05/24 08:09 11/05/24 08:09 11/05/24 08:09 11/05/24 08:09 Diagnostic Findings Cardiac Enzymes 11/05/24 Range/Units 05:08 AST 20 (13-39) U/L CBC 11/05/24 Range/Units 05:08 WBC 8.66 (4.8-10.8) K/ul RBC 2.86 L (4.20-5.40) M/uL Hgb 8.7 L (12.0-16.0) g/dl Hct 27.5 L (37.0-47.0) % Plt Count 157 (130-400) K/uL Comprehensive Metabolic Panel 11/05/24 Range/Units 05:08 Sodium 134 L (136-145) mmol/L Potassium 4.4 (3.5-5.1) mmol/L Chloride 92 L (98-107) mmol/L Carbon Dioxide 32 (21-32) mmol/L BUN 25 H (6-23) mg/dl Creatinine 4.93 H* D (0.6-1.2) mg/dl Glucose 162 H (70-99(Fasting)) mg/dl Calcium 9.7 (8.6-10.3) mg/dl AST 20 (13-39) U/L ALT 15 (7-52) U/L Alkaline Phosphatase 106 H (34-104) U/L Total Protein 5.9 L (6.0-8.3) gm/dl Albumin 3.4 (3.4-5.0) gm/dl Intake and Output 11/04/24 11/05/2425 22:59 06:59 14:59 Intake Total 215.052 / 473.474 75 / 473.474 195.947 / 195.947 Balance 215.052 / 473.474 75 / 473.474 195.947 / 195.947 Intake: IV 165.052 / 348.474 195.947 / 195.947 Amiodarone / D5w 360 mg In 200 165.052 / 348.474 195.947 / 195.947 ml @ 0.5 MG/MIN 16.667 mls/hr IV .Q12H PAULA Rx#:[id number] Oral 50 / 125 75 / 125 Other: # Unmeasured Voids 1 Weight 103.6 kg Weight Measurement Method Built in [facility] (2) Mitral regurgitation and mitral stenosis Cardiac valve disease etiology: nonrheumatic Qualified Code(s): I34.2 - Nonrheumatic mitral (valve) stenosis; I34.0 - Nonrheumatic mitral (valve) insufficiency
[2024-11-05 10:42] LABS: Basophils # (auto) 0.08 K/uL (0.00-0.20); Basophils % (auto) 0.9 %; Eosinophils # (auto) 0.38 K/uL (0.00-0.50); Eosinophils % (auto) 4.2 %; Immature Granulocytes # (auto) 0.05 K/uL (0.01-0.20); Immature Granulocytes % (auto) 0.5 %; Lymphocytes # (auto) 3.04 K/uL (1.20-3.40); Lymphocytes % (auto) 33.4 %; Monocytes # (auto) 0.71 K/uL (0.11-0.59); Monocytes % (auto) 7.8 %; Neutrophils # (auto) 4.85 K/uL (1.40-6.50); Neutrophils % (auto) 53.2 %
[2024-11-05] MEDS: HEPARIN SOD (PORCINE) 1000 UNIT/ML IV SCH ×2 (11:41→11:42)
--- NOTE | 2024-11-05 11:43 | Hospitalist Progress Note ---
Date of Service November 05, 2024 Assessment & Plan (1) Ventricular tachycardia: Plan Pt is a 63-year-old female with past medical history significant for sick sinus syndrome s/p pacemaker placement with recent ICD upgrade in September of 2024, type 2 diabetes, diabetic polyneuropathy, end-stage renal disease on hemodialysis, dyslipidemia, hypothyroidism, diabetic gastroparesis, diabetic retinopathy, obstructive sleep apnea on CPAP, chronic diastolic CHF, pulmonary hypertension, hypertension, GERD, morbid obesity, status post gastric bypass, depression, history of endometrial cancer, CHIDI inhibitor intolerance, recurrent ventral incisional hernia who presents with multiple episodes of near syncope after dialysis today. Ventricular Tachycardia Presyncope Pt noting frequent episodes at home Multiple episodes in the ED, pt remained hemodynamically stable Cardiology consulted, appreciate recs -amiodarone drip-->has since transitioned to po amiodarone -doses of Lopressor and Magnesium given in the ED -s/p AICD adjustment by EP on admission on 11/03 -echo with EF 55-60%, mild , severe MR, mod MS, mild TR, mod pulm HTN -continue on metoprolol succinate 25mg daily, amiodarone 400mg BID, Continue to monitor on telemetry Chronic Anemia Hgb 9.7 on admission Continue to monitor H/H DMII Basal/bolus protocol for hyperglycemia ESRD on dialysis Follows with [facility] Had dialysis the day of admission Nephrology consulted, appreciate recs Continue to monitor Continue other home meds as ordered Diet: advance as tolerated DVT prophylaxis: heparin SQ Dispo: admit to the ICU Admission and Anticipated Discharge Date Admission Date: November 03, 2024 Subjective pt was seen in the AM down in rm 101 and later while at dialysis No acute events overnight She denies acute complaints otherwise Review of Systems Review of Systems: All systems reviewed & are unremarkable except as noted in Subjective Physical Exam Physical Exam: General: Alert, oriented HEENT: clear conjunctiva, oropharynx dry HEENT: NC/AT CV: RRR Resp: Breath sounds clear bilaterally, no increased effort of breathing Abdomen: Soft, nontender Extremities: No edema in lower extremities bilaterally. Results & Data Results & Data Vital Signs (Past 12 Hours) Vital Signs Temp Pulse Pulse Resp BP Pulse Ox O2 Del Method 11/05/24 11:30 80 97/55 L 11/05/24 11:00 80 114/65 11/05/24 10:30 80 102/62 04/18/25 10:00 80 115/65 11/05/24 09:48 80 110/65 11/05/24 09:37 36.5 C 82 11/05/24 08:09 80 22 127/67 97 Nasal Cannula 11/05/24 07:33 Nasal Cannula 11/05/24 04:03 80 12 99 11/05/24 04:01 104/58 L 11/05/24 04:01 104/58 L 11/05/24 04:01 104/58 L 11/05/24 04:00 36.5 C 11/05/24 00:32 36.5 C 11/05/24 00:01 114/60 11/05/24 00:00 80 11/04/24 23:57 80 13 100 O2 Flow Rate 11/05/24 11:30 11/05/24 11:00 11/05/24 10:30 11/05/24 10:00 11/05/24 09:48 11/05/24 09:37 11/05/24 08:09 1 11/05/24 07:33 1 11/05/24 04:03 11/05/24 04:01 11/05/24 04:01 11/05/24 04:01 11/05/24 04:00 11/05/24 00:32 11/05/24 00:01 11/05/24 00:00 11/04/24 23:57
[2024-11-05] MEDS: EPOETIN ALFA 20,000 UNITS/ML VIAL IV SCH (13:51)
--- NOTE | 2024-11-05 16:16 | Dialysis Progress Note ---
Date of Service November 05, 2024 Assessment & Plan (1) ESRD (end stage renal disease) on dialysis: Plan: on OP HD MWF > may be worth a trial of longer/slower/more frequent HD as below>> -trial this in house and work w/ OP unit as well; consider HHD longer term potentially; OP dialysis unit aware she may need 4 days weekly longer txs K, hgb ok today >daily hgb, mag, bmp; added iron stores for am >on clear liquid diet so no FR at this time >next HD on 11/06 as below >>will likely need a few txs w/ longer/slower rx and regular diet to observe how she tolerates before d/c (2) Ventricular tachycardia: Plan: cardiology working out best combination >> ? amio and BB or BB alone or other episodes happen consistently on HD days a few hours after finishing treatment > ? if trial of slower/gentler (ie, longer/more frequent) HD would be better tolerated. normally runs 3h45m. trial longer tx tomorrow 4h15m as tolerated w/ lower flows. (3) Mitral regurgitation and mitral stenosis: Plan: not a surgical candidate unless absolutely failing conservative mgt (4) Hypertension: Admission and Anticipated Discharge Date Admission Date: November 03, 2024 Subjective seen on HD this AM approx 1120; no c/o; tolerating longer/slower tx; still on full liquid diet ; no sob, no edema, no further presync episodes Review of Systems 2 Review of Systems: All systems reviewed & are unremarkable except as noted in Subjective Physical Exam 2 Constitutional: well developed (sitting in bed on 02nc), well nourished and + obese; no acute distress Eyes: EOM intact bilaterally ENMT: Mouth: + dry oral mucous membranes Respiratory: normal respiratory effort Auscultation: + diminished lung sounds Cardiovascular: Rate/Rhythm: regular rate and regular rhythm Extremities: + AV fistula (+t/b); no edema Gastrointestinal (Abdomen): Inspection/Auscultation: normal bowel sounds P ercussion/Palpation: abdomen soft; abdomen nontender Musculoskeletal: Extremities: strength 5/5 throughout Skin: no rashes, warm and dry Psychiatric: Orientation: alert and oriented x 3 Results & Data Vital Signs (Past 12 Hours) Vital Signs Temp Pulse Pulse Resp BP BP Pulse Ox 11/05/24 14:10 36.5 C 80 124/70 04/18/25 14:00 80 112/67 11/05/24 13:30 80 111/65 11/05/24 13:00 80 117/64 11/05/24 12:30 80 118/61 11/05/24 12:00 80 108/63 11/05/24 11:30 80 97/55 L 11/05/24 11:00 80 114/65 11/05/24 10:30 80 102/62 11/05/24 10:00 80 115/65 11/05/24 09:48 80 110/65 11/05/24 09:37 36.5 C 82 11/05/24 08:09 80 22 127/67 97 11/05/24 08:00 80 11/05/24 07:33 11/05/24 04:03 80 12 99 11/05/24 04:01 104/58 L 11/05/24 04:01 104/58 L 11/05/24 04:01 104/58 L 11/05/24 04:00 36.5 C O2 Del Method O2 Flow Rate 11/05/24 14:10 11/05/24 14:00 11/05/24 13:30 11/05/24 13:00 11/05/24 12:30 11/05/24 12:00 11/05/24 11:30 11/05/24 11:00 11/05/24 10:30 11/05/24 10:00 11/05/24 09:48 11/05/24 09:37 11/05/24 08:09 Nasal Cannula 1 11/05/24 08:00 11/05/24 07:33 Nasal Cannula 1 11/05/24 04:03 11/05/24 04:01 11/05/24 04:01 11/05/24 04:01 11/05/24 04:00 Laboratory Results 11/05/24 05:08 11/05/24 05:08 (3) Mitral regurgitation and mitral stenosis Cardiac valve disease etiology: nonrheumatic Qualified Code(s): I34.2 - Nonrheumatic mitral (valve) stenosis; I34.0 - Nonrheumatic mitral (valve) insufficiency (4) Hypertension Hypertension type: primary hypertension Qualified Code(s): I10 - Essential (primary) hypertension
[2024-11-05] MEDS: AMIODARONE 200 MG TAB PO SCH (17:59)
[2024-11-06 05:55] LABS: Basophils # (auto) 0.08 K/uL (0.00-0.20); Basophils % (auto) 0.9 %; Eosinophils % (auto) 4.7 %; Hematocrit (blood only) 27.1 % (37.0-47.0); Hemoglobin 8.8 g/dl (12.0-16.0); Immature Granulocytes # (auto) 0.16 K/uL (0.01-0.20); Immature Granulocytes % (auto) 1.9 %; Lymphocytes # (auto) 2.34 K/uL (1.20-3.40); Lymphocytes % (auto) 27.6 %; Mean Corpuscular Hemoglobin 31.1 pg (25.0-34.0); Mean Corpuscular Hgb Conc 32.5 g/dL (32.0-36.0); Mean Corpuscular Volume 95.8 fL (80.0-100.0); Mean Platelet Volume 11.5 fL (9.4-12.4); Monocytes # (auto) 0.73 K/uL (0.11-0.59); Monocytes % (auto) 8.6 %; Neutrophils # (auto) 4.77 K/uL (1.40-6.50); Neutrophils % (auto) 56.3 %; Platelet Count 129 K/uL (130-400); RDW Coefficient of Variation 14.5 % (11.5-14.5); RDW Standard Deviation 51.1 fL (36.4-46.3); Red Blood Count 2.83 M/uL (4.20-5.40); White Blood Count 8.48 K/ul (4.8-10.8)
[2024-11-06 06:07] LABS: Albumin Level 3.4 gm/dl (3.4-5.0); Bilirubin,Total 0.4 mg/dl (0.2-1.0); Calcium 9.3 mg/dl (8.6-10.3); Magnesium 2.1 mg/dl (1.7-2.4); Potassium 4.1 mmol/L (3.5-5.1)
[2024-11-06 06:21] LABS: Albumin Globulin Ratio 1.3 (0.9-2); BUN Creatinine Ratio 3.8 (10-20); Creatinine Clr Calc Pharmacy 16.1 ml/min; Globulin 2.6 gm/dl (2.5-4.0); Phosphorus 3.7 mg/dl (2.5-4.9)
[2024-11-06] MEDS ORDERED: Nursing to Pharmacy Communication SCH (07:00)
[2024-11-06] MEDS ORDERED: SODIUM CHLORIDE 0.9% 1,000 ML IV PRN (07:00)
[2024-11-06] MEDS: MIDODRINE HCL 2.5 MG TAB PO PRN (08:24)
--- NOTE | 2024-11-06 09:28 | Nephrology Progress Note ---
Date of Service November 06, 2024 Assessment & Plan Admission and Anticipated Discharge Date Admission Date: November 03, 2024 Subjective Assessment & Plan (1) ESRD (end stage renal disease) on dialysis: Plan: on OP HD MWF. We discussed about doing 4 days a week HD as outpt. She has agreed. But ponce snot want to do On Friday. OP dialysis unit aware she may need 4 days weekly longer txs next HD today. will plan for 3.5 hrs and take 1.5 kilo. (2) Ventricular tachycardia: Plan: cardiology working out best combination >> ? amio and BB or BB alone or other Bp drops after dialysis with V tach is a new phenomenon. w will raise time to 4hr 15 mins and then extra day will be 3 hrs. (3) Mitral regurgitation and mitral stenosis: Plan: not a surgical candidate unless absolutely failing conservative mgt Subjective had dialysis yesterday and feels pretty good right now. for Dialysis again later today Review of Systems Review of Systems: All systems reviewed & are unremarkable except as noted in Subjective Physical Exam Constitutional: well developed (sitting in bed on 02nc), well nourished and + obese; no acute distress Eyes: EOM intact bilaterally ENMT: Mouth: + dry oral mucous membranes Respiratory: normal respiratory effort Auscultation: + diminished lung sounds Cardiovascular: Rate/Rhythm: regular rate and regular rhythm Extremities: + AV fistula (+t/b); no edema Gastrointestinal (Abdomen): Inspection/Auscultation: normal bowel sounds Percussion/Palpation: abdomen soft; abdomen nontender Musculoskeletal: Extremities: strength 5/5 throughout Skin: no rashes, warm and dry Psychiatric: Orientation: alert and oriented x 3 Results & Data Vital Signs (Past 12 Hours) Vital Signs Temp Pulse Pulse Resp BP Pulse Ox O2 Del Method 11/06/24 08:00 80 11/06/24 07:00 36.6 C 82 20 115/56 L 95 Room Air 11/06/24 03:00 36.7 C 80 12 105/58 L 94 Room Air 11/06/24 00:00 80 11/05/24 23:36 36.5 C 80 12 112/52 L 98 Room Air 11/05/24 23:05 82 15 96 O2 Flow Rate 11/06/24 08:00 11/06/24 07:00 11/06/24 03:00 11/06/24 00:00 11/05/24 23:36 11/05/24 23:05 2
[2024-11-06] MEDS: HEPARIN SOD (PORCINE) 1000 UNIT/ML IV ONE (10:39)
[2024-11-06] MEDS: HEPARIN SOD (PORCINE) 1000 UNIT/ML IV SCH (10:39)
[2024-11-06] MEDS: EPOETIN ALFA 10,000 UNITS/ML VIAL IV ONE (11:09)
[2024-11-06] MEDS: IRON SUCROSE 100 MG in SYRINGE 0 ML IV ONE (11:09)
[2024-11-06] MEDS: COLESTIPOL HCL 1 GM TAB PO PRN (14:15)
--- NOTE | 2024-11-06 15:01 | Hospitalist Progress Note ---
Date of Service November 06, 2024 Assessment & Plan (1) Ventricular tachycardia: Plan Pt is a 63-year-old female with past medical history significant for sick sinus syndrome s/p pacemaker placement with recent ICD upgrade in September of 2024, type 2 diabetes, diabetic polyneuropathy, end-stage renal disease on hemodialysis, dyslipidemia, hypothyroidism, diabetic gastroparesis, diabetic retinopathy, obstructive sleep apnea on CPAP, chronic diastolic CHF, pulmonary hypertension, hypertension, GERD, morbid obesity, status post gastric bypass, depression, history of endometrial cancer, CHIDI inhibitor intolerance, recurrent ventral incisional hernia who presents with multiple episodes of near syncope after dialysis today. Ventricular Tachycardia Presyncope Pt noting frequent episodes at home Multiple episodes in the ED, pt remained hemodynamically stable Cardiology consulted, appreciate recs -amiodarone drip-->has since transitioned to po amiodarone -doses of Lopressor and Magnesium given in the ED -s/p AICD adjustment by EP on admission on 11/03 -echo with EF 55-60%, mild , severe MR, mod MS, mild TR, mod pulm HTN -continue on metoprolol succinate 25mg daily, amiodarone 400mg BID Continue to monitor on telemetry Chronic Anemia Hgb 9.7 on admission, down to 8.8 Continue to monitor H/H DMII Basal/bolus protocol for hyperglycemia ESRD on dialysis Follows with [facility] Had dialysis the day of admission Nephrology consulted, appreciate recs Continue to monitor Continue other home meds as ordered Diet: advance as tolerated DVT prophylaxis: heparin SQ Dispo: admit to the ICU Admission and Anticipated Discharge Date Admission Date: November 03, 2024 Subjective pt was seen after dialysis Family members at bedside Denied any chest pain, SOB, palpitations No longer on supplemental oxygen, concerned. Pt saturating well, no acute distress Review of Systems Review of Systems: All systems reviewed & are unremarkable except as noted in Subjective Physical Exam Physical Exam: General: Alert, oriented HEENT: clear conjunctiva, oropharynx dry HEENT: NC/AT CV: RRR Resp: Breath sounds clear bilaterally, no increased effort of breathing Abdomen: Soft, nontender Extremities: No edema in lower extremities bilaterally. Results & Data Results & Data Vital Signs (Past 12 Hours) Vital Signs Temp Pulse Pulse Resp BP BP Pulse Ox 11/06/24 13:46 37.2 C 82 20 125/70 94 11/06/24 10:30 80 123/66 11/06/24 10:00 80 122/64 11/06/24 09:30 80 123/65 11/06/24 09:14 36.7 C 66 11/06/24 08:00 80 11/06/24 07:00 36.6 C 82 20 115/56 L 95 O2 Del Method 11/06/24 13:46 Room Air 11/06/24 10:30 11/06/24 10:00 11/06/24 09:30 11/06/24 09:14 11/06/24 08:00 11/06/24 07:00 Room Air
[2024-11-06] MEDS: PROMETHAZINE 6.25 MG/50.25 ML BAG IV PRN (16:46)
[2024-11-07] MEDS: CARBOHYDRATES FOR HYPOGLYCEMIA PO PRN (01:30)
[2024-11-07 05:11] LABS: Basophils # (auto) 0.08 K/uL (0.00-0.20); Basophils % (auto) 0.8 %; Eosinophils # (auto) 0.41 K/uL (0.00-0.50); Hematocrit (blood only) 28.9 % (37.0-47.0); Hemoglobin 9.2 g/dl (12.0-16.0); Immature Granulocytes # (auto) 0.14 K/uL (0.01-0.20); Immature Granulocytes % (auto) 1.4 %; Lymphocytes % (auto) 22.7 %; Mean Corpuscular Hemoglobin 30.9 pg (25.0-34.0); Mean Corpuscular Hgb Conc 31.8 g/dL (32.0-36.0); Monocytes # (auto) 1.08 K/uL (0.11-0.59); Monocytes % (auto) 10.6 %; Neutrophils # (auto) 6.14 K/uL (1.40-6.50); Neutrophils % (auto) 60.5 %; Nucleated RBC # (auto) 0.08 K/uL (0.00-0.12); Nucleated RBC % (auto) 0.8 %; Platelet Count 135 K/uL (130-400); RDW Standard Deviation 53.1 fL (36.4-46.3); Red Blood Count 2.98 M/uL (4.20-5.40); White Blood Count 10.15 K/ul (4.8-10.8)
[2024-11-07 05:26] LABS: Albumin Level 3.6 gm/dl (3.4-5.0); Bilirubin,Total 0.4 mg/dl (0.2-1.0); Calcium 9.6 mg/dl (8.6-10.3); Magnesium 2.2 mg/dl (1.7-2.4)
[2024-11-07 05:32] LABS: Albumin Globulin Ratio 1.4 (0.9-2); BUN Creatinine Ratio 4.5 (10-20); Creatinine Clr Calc Pharmacy 17.8 ml/min; Globulin 2.6 gm/dl (2.5-4.0); Phosphorus 3.2 mg/dl (2.5-4.9); Total Protein 6.2 gm/dl (6.0-8.3)
[2024-11-07] MEDS: CALCIUM ACETATE 667 MG CAP/TAB PO SCH (06:45)
--- NOTE | 2024-11-07 12:56 | Cardiology Progress Note ---
<Statement entered by Adrianna Ricci, DO - 11/07/24 14:35> I have reviewed the advanced practitioner's documentation and agree with the plan of care. I accept the responsibility for the associated risk. Pt seen in cardiology f/u due to recurrent VT after HD requiring ICD shocks Pt has now had 2 sessions of HD in the hospital without any recurrent VT; a few hours after HD yesterday she did have some nausea, diaphoresis and lightheadedness but did not have any arrhythmias. she is currently on amiodarone 400mg BID which she should continue until 11/18/2024 where she will go down to 200mg daily. I will ask the [employer] rep to come in tomorrow morning to decrease her base rate to 75bpm as well I will arrange for EP f/u in our office in about 1 month as well as she will need general cardiology f/u with Dr. Stevenson and CMP and TFTs as an outpatient no further cardiac in patient recommendations or testing at this juncture; please re-consult as necessary Date of Service November 07, 2024 Assessment & Plan (1) Ventricular tachycardia: (2) Mitral regurgitation and mitral stenosis: Plan: Plan * Transitioned to oral amiodarone on 418 400 mg twice daily * Basal pacer rate increased from 60 bpm to 80 bpm on 11/03 with hopes to suppress VT * can reduce rate back to 70/75 bpm, will coordinate with [employer] rep for reprogramming given her complexity; plan to complete this prior to her dialysis treatment tomorrow * Continue midodrine 5 mg am of HD days, with additional dose during session for SBP < 90 mm Hg. * Normal LVEF,Moderate MS, severe MR , h/o flash pulmonary edema * Echo this admission unchanged compared to a month ago * Obstructive CAD excluded on cath at [facility] 09/2024 * VT events do not seem to be associated with volume overload * Daily activity limited OLSON may be related to mitral valve disease but felt to be a very high risk surgical candidate, not sure that this would alleviate the symptoms at this point the risk may outweigh the benefit * Continue Toprol, amiodarone, atorvastatin, aspirin * continue to use Midodrine prior to dialysis * At discharge continue amiodarone 400 mg twice per day until 11/18/2024 and at that time she can decrease amiodarone to 200 mg daily I also discussed and provided her with instructions on this today Case discussed with Dr. Ricci. Please see attestation for additional recommendations. I spent a total of 40 minutes on the date of service in preparation, delivery, and documentation of the care provided to the patient excluding any time spent in the performance of separately billed services. LUCRECIA Madden Department of Cardiology, [facility] This chart was completed in part utilizing Speech Voice Recognition Software. Grammatical errors, random word insertions, pronoun errors, and incomplete se ntences are an occasional consequence of this system due to software limitations, ambient noise, and hardware issues. Any formal questions or concerns about the content, text, or information contained within the body of this dictation should be directly addressed to the provider for clarification. Admission and Anticipated Discharge Date Admission Date: November 03, 2024 Subjective 63-year-old female seen in cardiology follow-up in regard to sustained VT status post ICD shock. Has had no recurrent shocks since her device was reprogrammed and she was placed on amiodarone. Tolerated dialysis well yesterday but did feel a little fatigued after the treatment for a few hours. Overall feeling better. Review of Systems Constitutional: + weakness; no fever and no chills Respiratory: + dyspnea; no cough Cardiovascular: no chest pain, no orthopnea, no palpitations and no syncope Gastrointestinal: no abdominal pain, no nausea and no vomiting Physical Exam Constitutional: WD/WN, vitals as above well developed and well nourished; no acute distress Eyes: PERRL, conjunctivae normal, anicteric sclerae Neck: trachea midline, no thyromegaly Respiratory: normal respiratory effort, lungs clear to auscultation Cardiovascular: Rate/Rhythm: regular rate and regular rhythm Heart Sounds: + murmur Vessels: no JVD Gastrointestinal (Abdomen): normal bowel sounds, soft, nontender, no hepatosplenomegaly Skin: no rashes, warm and dry Psychiatric: A+Ox3, euthymic affect Results & Data Vital Signs (Past 12 Hours) Vital Signs Temp Pulse Pulse Resp BP Pulse Ox O2 Del Method 11/07/24 11:10 36.8 C 83 17 130/67 95 Room Air 11/07/24 08:00 80 11/07/24 07:19 36.5 C 80 18 109/56 L 95 Room Air 11/07/24 05:09 37.1 C 82 15 99/59 L 96 CPAP 11/07/24 02:45 80 15 96 Laboratory Results Laboratory Results WBC 10.15 K/ul (4.8-10.8) 11/07/24 04:55 RBC 2.98 M/uL (4.20-5.40) L 11/07/24 04:55 Hgb 9.2 g/dl (12.0-16.0) L 11/07/24 04:55 Hct 28.9 % (37.0-47.0) L 11/07/24 04:55 MCV 97.0 fL (80.0-100.0) 11/07/24 04:55 MCH 30.9 pg (25.0-34.0) 11/07/24 04:55 MCHC 31.8 g/dL (32.0-36.0) L 11/07/24 04:55 RDW Std Deviation 53.1 fL (36.4-46.3) H 11/07/24 04:55 RDW Coeff of Leatha 15.0 % (11.5-14.5) H 11/07/24 04:55 Plt Count 135 K/uL (130-400) 11/07/24 04:55 MPV 11.0 fL (9.4-12.4) 11/07/24 04:55 Immature Gran % (Auto) 1.4 % 11/07/24 04:55 Neut % (Auto) 60.5 % 11/07/24 04:55 Lymph % (Auto) 22.7 % 11/07/24 04:55 [place] % (Auto) 10.6 % 11/07/24 04:55 Eos % (Auto) 4.0 % 11/07/24 04:55 Baso % (Auto) 0.8 % 11/07/24 04:55 Neut # (Auto) 6.14 K/uL (1.40-6.50) 11/07/24 04:55 Lymph # (Auto) 2.30 K/uL (1.20-3.40) 11/07/24 04:55 [place] # (Auto) 1.08 K/uL (0.11-0.59) H 11/07/24 04:55 Eos # (Auto) 0.41 K/uL (0.00-0.50) 11/07/24 04:55 Baso # (Auto) 0.08 K/uL (0.00-0.20) 11/07/24 04:55 Immature Gran # (Auto) 0.14 K/uL (0.01-0.20) 11/07/24 04:55 Absolute Nucleated RBC 0.08 K/uL (0.00-0.12) 11/07/24 04:55 Nucleated RBC % (auto) 0.8 % 11/07/24 04:55 PT 10.8 Seconds (9.0-12.0) 11/03/24 16:09 INR 1.0 (0.9-1.1) 11/03/24 16:09 Sodium 136 mmol/L (136-145) 11/07/24 04:55 Potassium 4.0 mmol/L (3.5-5.1) 11/07/24 04:55 Chloride 101 mmol/L (98-107) 11/07/24 04:55 Carbon Dioxide 28 mmol/L (21-32) 11/07/24 04:55 Anion Gap 7 (3-11) 11/07/24 04:55 BUN 16 mg/dl (6-23) 11/07/24 04:55 Creatinine 3.59 mg/dl (0.6-1.2) H D 11/07/24 04:55 Est Cr Clr Drug Dosing 17.8 ml/min 11/07/24 04:55 eGFR 13.49 11/07/24 04:55 BUN/Creatinine Ratio 4.5 (10-20) L 11/07/24 04:55 Glucose 151 mg/dl (70-99(Fasting)) H 11/07/24 04:55 POC Glucose 245 mg/dl (70-99) H 11/07/24 10:51 Calcium 9.6 mg/dl (8.6-10.3) 11/07/24 04:55 Phosphorus 3.2 mg/dl (2.5-4.9) 11/07/24 04:55 Magnesium 2.2 mg/dl (1.7-2.4) 11/07/24 04:55 Iron 44 mcg/dl (35-150) 11/05/24 05:08 TIBC 206 mcg/dl (250-450) L 11/05/24 05:08 Transferrin 147 mg/dl (200-360) L 11/05/24 05:08 Transferrin % Sat 21 % (15-50) 11/05/24 05:08 Total Bilirubin 0.4 mg/dl (0.2-1.0) 11/07/24 04:55 AST 19 U/L (13-39) 11/07/24 04:55 ALT 15 U/L (7-52) 11/07/24 04:55 Alkaline Phosphatase 118 U/L (34-104) H 11/07/24 04:55 Troponin I High Sens 27.0 pg/ml (0-14) H D 11/03/24 23:24 Total Protein 6.2 gm/dl (6.0-8.3) 11/07/24 04:55 Albumin 3.6 gm/dl (3.4-5.0) 11/07/24 04:55 Globulin 2.6 gm/dl (2.5-4.0) 11/07/24 04:55 Albumin/Globulin Ratio 1.4 (0.9-2) 11/07/24 04:55 Lipase 28 U/L (11-82) 11/03/24 16:09 TSH 3.245 uIu/ml (0.300-4.500) 11/03/24 17:07 TSH Cancelled 11/03/24 17:07 Nasal Screen MRSA (PCR) Negative (Negative) 11/03/24 Unknown Impressions Chest X-Ray 11/03/24 16:33 Chest radiograph, one view History: Chest pain Comparison: October 04, 2024 Findings: Lungs: Appearance of mild diffuse pulmonary edema likely related to CHF. No pulmonary mass density. Pleural space: Unremarkable. No pneumothorax or pleural fluid. Heart: Cardiomegaly. Mediastinum: Unremarkable. Normal mediastinal contour. Bones/joints: No acute findings. Tubes, lines and devices: Stable implanted cardiac pacer. IMPRESSION: Cardiomegaly with evidence of early CHF, similar to prior. Electronically signed by Regis Akbar 11-03-2024 5:26 PM Medications Administered Current Inpatient Medications Acetaminophen (Acetaminophen 325 Mg Tab) 650 mg PO Q6H PRN PRN Reason: Pain or Fever Stop: 12/03/24 21:43 Last Admin: 11/06/24 02:14 Dose: 650 mg Albuterol (Albuterol 0.083% Nebu Soln 3 Ml Vial) 0.63 mg INH Q6H PRN PRN Reason: Wheezing Stop: 12/03/24 23:18 Amiodarone HCl (Amiodarone 200 Mg Tab) 400 mg PO BIDM [facility] Stop: 12/05/24 16:59 Last Admin: 11/07/24 08:37 Dose: 400 mg Aspirin (Aspirin 81 Mg Ectab) 81 mg PO HS [facility] Stop: 12/04/24 20:59 Last Admin: 11/06/24 21:21 Dose: 81 mg Atorvastatin Calcium (Atorvastatin 40 Mg Tab) 40 mg PO QPM [facility] Stop: 12/04/24 20:59 Last Admin: 11/06/24 21:21 Dose: 40 mg Calcium Acetate (Calcium Acetate 667 Mg Cap/Tab) 2,001 mg PO TID@0630,1030,1430 [facility] Stop: 12/07/24 06:29 Last Admin: 11/07/24 10:48 Dose: 2,001 mg Calcium/Vitamin D (Calcium 600mg + Vit D 400 Iu Tab) 1 tab PO BID [facility] Stop: 12/04/24 08:59 Last Admin: 11/07/24 08:37 Dose: 1 tab Citalopram Hydrobromide (Citalopram 20 Mg Tab) 20 mg PO QAM [facility] Stop: 12/04/24 08:59 Last Admin: 11/07/24 08:37 Dose: 20 mg Colestipol HCl (Colestipol Hcl 1 Gm Tab) 2 gm PO QDL PRN PRN Reason: Diarrhea Stop: 12/03/24 21:43 Dextrose (Dextrose 50% 50 Ml Syringe) 25 - 50 ml IV UD PRN; Protocol PRN Reason: Hypoglycemia Protocol Stop: 12/03/24 22:11 Gabapentin (Gabapentin 300 Mg Cap) 300 mg PO HS [facility] Stop: 12/04/24 20:59 Last Admin: 11/06/24 21:21 Dose: 300 mg Glucagon (Glucagon For Inj 1 Mg Vial) 1 mg SQ UD PRN; Protocol PRN Reason: Hypoglycemia Protocol Stop: 12/03/24 22:11 Glucose (Glucose 40% Gel 15 Gm Tube) 15 - 30 gm PO UD PRN; Protocol PRN Reason: Hypoglycemia Protocol Stop: 12/03/24 22:11 Glucose (Glucose 10 Tab/Tube) 4 - 8 tab PO UD PRN; Protocol PRN Reason: Hypoglycemia Protocol Stop: 12/03/24 22:11 Heparin Sodium (Porcine) (Heparin Sod 5,000 Unit/0.5 Ml Vial) 5,000 units SQ Q12 [facility] Stop: 12/04/24 08:59 Last Admin: 11/07/24 08:38 Dose: 5,000 units Sodium Chloride (Nss) 1,000 mls @ 0 mls/hr IV .Q0M PRN PRN Reason: For Hemodialysis Use ONLY Stop: 11/11/24 06:59 Sodium Chloride (Nss) 1,000 mls @ 0 mls/hr IV .Q0M PRN PRN Reason: For Hemodialysis Use ONLY Stop: 11/12/24 06:59 Promethazine HCl (Phenergan) 6.25 mg in 50.25 mls @ 201 mls/hr IV Q6H PRN PRN Reason: Nausea And Vomiting Stop: 12/06/24 16:10 Last Infusion: 11/06/24 17:04 Dose: Infused Sodium Chloride (Nss) 1,000 mls @ 0 mls/hr IV .Q0M PRN PRN Reason: For Hemodialysis Use ONLY Stop: 11/14/24 06:59 Insulin Aspart (Insulin Aspart Per Unit Charge) 0 units SC ACHS [facility] Stop: 12/03/24 22:29 Last Admin: 11/07/24 11:51 Dose: 13 units Insulin Glargine (Lantus Per Unit Charge) 10 units SQ QAM [facility] Stop: 12/04/24 08:59 Last Admin: 11/07/24 08:38 Dose: 10 units Levothyroxine Sodium (Levothyroxine Sodium 100 Mcg Tablet) 100 mcg PO DAILYBB [facility] Stop: 12/04/24 06:29 Last Admin: 11/07/24 06:45 Dose: 100 mcg Melatonin (Melatonin 3 Mg Tab) 9 mg PO HS [facility] Stop: 12/04/24 20:59 Last Admin: 11/06/24 21:21 Dose: 9 mg Metoprolol Succinate (Metoprolol Succ 25mg Ext Rel Tab) 25 mg PO QAM [facility] Stop: 12/04/24 10:29 Last Admin: 11/07/24 08:37 Dose: 25 mg Midodrine (Midodrine Hcl 2.5 Mg Tab) 5 mg PO MoWeFr@0800,1000 PRN PRN Reason: for BP support due to HD Stop: 12/03/24 22:05 Last Admin: 11/06/24 08:24 Dose: 5 mg Miscellaneous (Carbohydrates For Hypoglycemia ) 15 - 30 gm PO UD PRN PRN Reason: Hypoglycemia Protocol Stop: 12/03/24 22:11 Last Admin: 11/07/24 01:30 Dose: 15 gm Multivitamins/Folic Acid/Vitamin C (Multivitamin Chewable Tab) 1 tab PO DAILY [facility] Stop: 12/04/24 08:59 Last Admin: 11/07/24 08:37 Dose: 1 tab Nitroglycerin (Nitroglycerin Sl 0.4 Mg/Tab Tab) 0.4 mg SL Q5M PRN PRN Reason: CHEST PAIN Stop: 12/03/24 23:01 Oxycodone HCl (Oxycodone Hcl Ir 5 Mg Tab (Immediate Release)) 5 mg PO Q4H PRN PRN Reason: Pain Stop: 11/19/24 01:48 Last Admin: 11/05/24 02:00 Dose: 5 mg Pantoprazole Sodium (Pantoprazole 40 Mg Tab) 40 mg PO QAM [facility] Stop: 12/04/24 08:59 Last Admin: 11/07/24 08:37 Dose: 40 mg Vitamin B Complex/Folic Acid (Nephrocaps) 1 cap PO DAILY [facility] Stop: 12/04/24 08:59 Last Admin: 11/07/24 08:36 Dose: 1 cap Vitamin D (Cholecalciferol 125 Mcg (5,000 Units) Tab) 125 mcg PO DAILY [facility] Stop: 12/04/24 08:59 Last Admin: 11/07/24 08:37 Dose: 125 mcg (2) Mitral regurgitation and mitral stenosis Cardiac valve disease etiology: nonrheumatic Qualified Code(s): I34.2 - Nonrheumatic mitral (valve) stenosis; I34.0 - Nonrheumatic mitral (valve) insufficiency
--- NOTE | 2024-11-07 16:11 | Hospitalist Progress Note ---
Date of Service November 07, 2024 Assessment & Plan (1) Ventricular tachycardia: Plan Pt is a 63-year-old female with past medical history significant for sick sinus syndrome s/p pacemaker placement with recent ICD upgrade in September of 2024, type 2 diabetes, diabetic polyneuropathy, end-stage renal disease on hemodialysis, dyslipidemia, hypothyroidism, diabetic gastroparesis, diabetic retinopathy, obstructive sleep apnea on CPAP, chronic diastolic CHF, pulmonary hypertension, hypertension, GERD, morbid obesity, status post gastric bypass, depression, history of endometrial cancer, CHIDI inhibitor intolerance, recurrent ventral incisional hernia who presents with multiple episodes of near syncope after dialysis today. Ventricular Tachycardia Presyncope Pt noting frequent episodes at home Multiple episodes in the ED, pt remained hemodynamically stable Cardiology consulted, appreciate recs -amiodarone drip-->has since transitioned to po amiodarone -doses of Lopressor and Magnesium given in the ED -s/p AICD adjustment by EP on admission on 11/03 -echo with EF 55-60%, mild , severe MR, mod MS, mild TR, mod pulm HTN -continue on metoprolol succinate 25mg daily, amiodarone 400mg BID Continue to monitor on telemetry Appreciate further cardiology recs Chronic Anemia Hgb 9.7 on admission, currently 9.2 Continue to monitor H/H DMII Basal/bolus protocol for hyperglycemia ESRD on dialysis Follows with [facility] Had dialysis the day of admission Nephrology consulted, appreciate recs Continue to monitor Continue other home meds as ordered Diet: advance as tolerated DVT prophylaxis: heparin SQ Dispo: admit to the ICU Admission and Anticipated Discharge Date Admission Date: November 03, 2024 Subjective pt was seen in the AM with family at bedside down in 101 She stated she had one more "near" episode where she "started to feel it in her head" once more but her symptoms seemed to go away Was associated with nausea Review of Systems Review of Systems: All systems reviewed & are unremarkable except as noted in Subjective Physical Exam Physical Exam: General: Alert, oriented HEENT: clear conjunctiva, oropharynx dry HEENT: NC/AT CV: RRR Resp: Breath sounds clear bilaterally, no increased effort of breathing Abdomen: Soft, nontender Extremities: No edema in lower extremities bilaterally. Results & Data Results & Data Vital Signs (Past 12 Hours) Vital Signs Temp Pulse Pulse Resp BP Pulse Ox O2 Del Method 11/07/24 15:45 36.8 C 81 17 112/66 95 Room Air 11/07/24 11:10 36.8 C 83 17 130/67 95 Room Air 11/07/24 08:00 80 11/07/24 07:19 36.5 C 80 18 109/56 L 95 Room Air 11/07/24 05:09 37.1 C 82 15 99/59 L 96 CPAP
[2024-11-08 05:18] LABS: Basophils # (auto) 0.06 K/uL (0.00-0.20); Basophils % (auto) 0.5 %; Eosinophils # (auto) 0.43 K/uL (0.00-0.50); Eosinophils % (auto) 3.9 %; Hematocrit (blood only) 26.9 % (37.0-47.0); Hemoglobin 8.8 g/dl (12.0-16.0); Immature Granulocytes # (auto) 0.05 K/uL (0.01-0.20); Immature Granulocytes % (auto) 0.5 %; Lymphocytes # (auto) 3.42 K/uL (1.20-3.40); Lymphocytes % (auto) 31.2 %; Mean Corpuscular Hemoglobin 31.5 pg (25.0-34.0); Mean Corpuscular Hgb Conc 32.7 g/dL (32.0-36.0); Mean Corpuscular Volume 96.4 fL (80.0-100.0); Mean Platelet Volume 11.3 fL (9.4-12.4); Monocytes # (auto) 1.03 K/uL (0.11-0.59); Monocytes % (auto) 9.4 %; Neutrophils # (auto) 5.96 K/uL (1.40-6.50); Neutrophils % (auto) 54.5 %; Platelet Count 133 K/uL (130-400); RDW Coefficient of Variation 15.1 % (11.5-14.5); RDW Standard Deviation 52.3 fL (36.4-46.3); Red Blood Count 2.79 M/uL (4.20-5.40); White Blood Count 10.95 K/ul (4.8-10.8)
[2024-11-08 05:54] LABS: Albumin Level 3.5 gm/dl (3.4-5.0); Bilirubin,Total 0.4 mg/dl (0.2-1.0); Calcium 9.4 mg/dl (8.6-10.3); Magnesium 2.2 mg/dl (1.7-2.4)
[2024-11-08 06:02] LABS: Albumin Globulin Ratio 1.4 (0.9-2); BUN Creatinine Ratio 5.4 (10-20); Creatinine Clr Calc Pharmacy 12.4 ml/min; Globulin 2.5 gm/dl (2.5-4.0); Phosphorus 3.1 mg/dl (2.5-4.9)
[2024-11-08] MEDS ORDERED: SODIUM CHLORIDE 0.9% 1,000 ML IV PRN ×2 (07:00→08:10)
[2024-11-08] MEDS: HEPARIN SOD (PORCINE) 1000 UNIT/ML IV ONE (10:45)
[2024-11-08] MEDS: HEPARIN SOD (PORCINE) 1000 UNIT/ML IV SCH (10:45)
--- NOTE | 2024-11-08 11:15 | Dialysis Progress Note ---
Date of Service November 08, 2024 Assessment & Plan Admission and Anticipated Discharge Date Admission Date: November 03, 2024 Subjective Assessment & Plan (1) ESRD (end stage renal disease) on dialysis: Plan: on OP HD MWF. We discussed about doing 4 days a week HD as outpt. She has agreed. But ponce snot want to do On Friday. OP dialysis unit aware she may need 4 days weekly longer txs 4hr 15 mins today and take 2 kilo off. (2) Ventricular tachycardia: Plan: cardiology working out best combination >> ? amio and BB or BB alone or other Bp drops after dialysis with V tach is a new phenomenon. will raise time to 4hr 15 mins and then extra day will be 3 hrs. (3) Mitral regurgitation and mitral stenosis: Plan: not a surgical candidate unless absolutely failing conservative mgt Subjective Seen during Dialysis. So far No issues. AVF fine. Review of Systems Review of Systems: All systems reviewed & are unremarkable except as noted in Subjective Physical Exam Constitutional: well developed (sitting in bed on 02nc), well nourished and + obese; no acute distress Eyes: EOM intact bilaterally ENMT: Mouth: + dry oral mucous membranes Respiratory: normal respiratory effort Auscultation: + diminished lung sounds Cardiovascular: Rate/Rhythm: regular rate and regular rhythm Extremities: + AV fistula (+t/b); no edema Gastrointestinal (Abdomen): Inspection/Auscultation: normal bowel sounds Percussion/Palpation: abdomen soft; abdomen nontender Musculoskeletal: Extremities: strength 5/5 throughout Skin: no rashes, warm and dry Psychiatric: Orientation: alert and oriented x 3 Results & Data Vital Signs (Past 12 Hours) Vital Signs Temp Pulse Pulse Pulse Resp BP BP 11/08/24 10:30 75 117/64 11/08/24 10:00 75 118/68 11/08/24 09:45 75 137/70 11/08/24 09:37 36.5 C 80 11/08/24 07:12 36.5 C 84 20 126/73 11/08/24 04:00 36.5 C 80 13 119/63 11/08/24 02:30 81 17 11/08/24 00:00 80 11/07/24 23:30 80 23 Pulse Ox O2 Del Method 11/08/24 10:30 11/08/24 10:00 11/08/24 09:45 11/08/24 09:37 11/08/24 07:12 98 Room Air 11/08/24 04:00 98 CPAP 11/08/24 02:30 11/08/24 00:00 11/07/24 23:30 99
[2024-11-08] MEDS: EPOETIN ALFA 10,000 UNITS/ML VIAL IV ONE (11:23)
--- NOTE | 2024-11-08 15:30 | Hospitalist Progress Note ---
Date of Service November 08, 2024 Assessment & Plan (1) Ventricular tachycardia: Plan Pt is a 63-year-old female with past medical history significant for sick sinus syndrome s/p pacemaker placement with recent ICD upgrade in September of 2024, type 2 diabetes, diabetic polyneuropathy, end-stage renal disease on hemodialysis, dyslipidemia, hypothyroidism, diabetic gastroparesis, diabetic retinopathy, obstructive sleep apnea on CPAP, chronic diastolic CHF, pulmonary hypertension, hypertension, GERD, morbid obesity, status post gastric bypass, depression, history of endometrial cancer, CHIDI inhibitor intolerance, recurrent ventral incisional hernia who presents with multiple episodes of near syncope after dialysis today. Ventricular Tachycardia Presyncope Pt noting frequent episodes at home Multiple episodes in the ED, pt remained hemodynamically stable Cardiology consulted, appreciate recs -amiodarone drip-->has since transitioned to po amiodarone -doses of Lopressor and Magnesium given in the ED -s/p AICD adjustment by EP on admission on 11/03 and by [employer] on 11/08 -echo with EF 55-60%, mild , severe MR, mod MS, mild TR, mod pulm HTN -continue on metoprolol succinate 25mg daily, amiodarone 400mg BID Continue to monitor on telemetry Appreciate further cardiology recs Chronic Anemia Hgb 9.7 on admission, currently 9.2 Continue to monitor H/H DMII Basal/bolus protocol for hyperglycemia ESRD on dialysis Follows with [facility] Had dialysis the day of admission Nephrology consulted, appreciate recs Continue to monitor Continue other home meds as ordered Diet: advance as tolerated DVT prophylaxis: heparin SQ Dispo: admit to the ICU Admission and Anticipated Discharge Date Admission Date: November 03, 2024 Subjective pt was seen while up in dialysis. She stated that she had an episode overnight of tachycardia Per nephrology and pt, her episodes happen around 7pm on the day of dialysis so since the pacer was adjusted today they want to observe her overnight. Review of Systems Review of Systems: All systems reviewed & are unremarkable except as noted in Subjective Physical Exam Physical Exam: General: Alert, oriented HEENT: clear conjunctiva, oropharynx dry HEENT: NC/AT CV: RRR Resp: Breath sounds clear bilaterally, no increased effort of breathing Abdomen: Soft, nontender Extremities: No edema in lower extremities bilaterally. Results & Data Results & Data Vital Signs (Past 12 Hours) Vital Signs Temp Pulse Pulse Pulse Resp BP BP 11/08/24 14:27 36.6 C 78 19 120/88 11/08/24 13:30 75 122/64 11/08/24 13:00 75 131/68 11/08/24 12:30 75 128/72 11/08/24 12:00 75 133/76 11/08/24 11:30 75 109/62 11/08/24 11:00 75 112/61 11/08/24 10:30 75 117/64 11/08/24 10:00 75 118/68 11/08/24 09:45 75 137/70 11/08/24 09:37 36.5 C 80 11/08/24 07:12 36.5 C 84 20 126/73 11/08/24 04:00 36.5 C 80 13 119/63 Pulse Ox O2 Del Method 11/08/24 14:27 99 Room Air 11/08/24 13:30 11/08/24 13:00 11/08/24 12:30 11/08/24 12:00 11/08/24 11:30 11/08/24 11:00 11/08/24 10:30 11/08/24 10:00 11/08/24 09:45 11/08/24 09:37 11/08/24 07:12 98 Room Air 11/08/24 04:00 98 CPAP
[2024-11-09 06:24] LABS: Albumin Globulin Ratio 1.4 (0.9-2); Albumin Level 3.6 gm/dl (3.4-5.0); BUN Creatinine Ratio 4.4 (10-20); Bilirubin,Total 0.4 mg/dl (0.2-1.0); Calcium 9.4 mg/dl (8.6-10.3); Creatinine Clr Calc Pharmacy 16.9 ml/min; Globulin 2.6 gm/dl (2.5-4.0); Magnesium 2.1 mg/dl (1.7-2.4); Potassium 4.3 mmol/L (3.5-5.1); Total Protein 6.2 gm/dl (6.0-8.3)
[2024-11-09 06:28] LABS: Basophils # (auto) 0.09 K/uL (0.00-0.20); Basophils % (auto) 0.9 %; Eosinophils % (auto) 3.1 %; Hematocrit (blood only) 30.1 % (37.0-47.0); Hemoglobin 9.4 g/dl (12.0-16.0); Immature Granulocytes # (auto) 0.04 K/uL (0.01-0.20); Immature Granulocytes % (auto) 0.4 %; Lymphocytes % (auto) 31.8 %; Mean Corpuscular Hemoglobin 30.7 pg (25.0-34.0); Mean Corpuscular Hgb Conc 31.2 g/dL (32.0-36.0); Mean Corpuscular Volume 98.4 fL (80.0-100.0); Mean Platelet Volume 11.3 fL (9.4-12.4); Monocytes # (auto) 0.78 K/uL (0.11-0.59); Neutrophils # (auto) 5.45 K/uL (1.40-6.50); Neutrophils % (auto) 55.8 %; Platelet Count 147 K/uL (130-400); RDW Coefficient of Variation 16.1 % (11.5-14.5); RDW Standard Deviation 55.3 fL (36.4-46.3); Red Blood Count 3.06 M/uL (4.20-5.40); White Blood Count 9.76 K/ul (4.8-10.8)
--- NOTE | 2024-11-09 14:34 | Hospitalist Progress Note ---
Date of Service November 09, 2024 Assessment & Plan (1) Ventricular tachycardia: Plan Pt is a 63-year-old female with past medical history significant for sick sinus syndrome s/p pacemaker placement with recent ICD upgrade in September of 2024, type 2 diabetes, diabetic polyneuropathy, end-stage renal disease on hemodialysis, dyslipidemia, hypothyroidism, diabetic gastroparesis, diabetic retinopathy, obstructive sleep apnea on CPAP, chronic diastolic CHF, pulmonary hypertension, hypertension, GERD, morbid obesity, status post gastric bypass, depression, history of endometrial cancer, CHIDI inhibitor intolerance, recurrent ventral incisional hernia who presents with multiple episodes of near syncope after dialysis today. Ventricular Tachycardia Presyncope Pt noting frequent episodes at home Multiple episodes in the ED, pt remained hemodynamically stable Cardiology consulted, appreciate recs -amiodarone drip-->has since transitioned to po amiodarone -doses of Lopressor and Magnesium given in the ED -s/p AICD adjustment by EP on admission on 11/03 and by [employer] on 11/08 -echo with EF 55-60%, mild , severe MR, mod MS, mild TR, mod pulm HTN -continue on metoprolol succinate 25mg daily, amiodarone 400mg BID Continue to monitor on telemetry Appreciate further cardiology recs 11/09-notified by respiratory that though pt's 2 step revealed she did not need oxygen for home use, she expressed concern about going home given how SOB she felt. She stated that this was similar to her prior discharge from [facility] where she was later told she would need oxygen. Pt agreeable to evaluation by PT/OT for a possible short rehab/SNF stay. Also seen by cardiology today and cardiology aware. Appreciate PT/OT recs Chronic Anemia Hgb 9.7 on admission, currently 9.2 Continue to monitor H/H DMII Basal/bolus protocol for hyperglycemia ESRD on dialysis Follows with [facility] Had dialysis the day of admission Nephrology consulted, appreciate recs Continue to monitor Continue other home meds as ordered Diet: advance as tolerated DVT prophylaxis: heparin SQ Dispo: admit to the ICU Admission and Anticipated Discharge Date Admission Date: November 03, 2024 Subjective pt was seen multiple times during the day Later notified by respiratory that though pt's 2 step revealed she did not need oxygen for home use, she expressed concern about going home given how SOB she felt. She stated that this was similar to her prior discharge from [facility] where she was later told she would need oxygen. Review of Systems Review of Systems: All systems reviewed & are unremarkable except as noted in Subjective Physical Exam Physical Exam: General: Alert, oriented HEENT: clear conjunctiva, oropharynx dry HEENT: NC/AT CV: RRR Resp: Breath sounds clear bilaterally, no increased effort of breathing Abdomen: Soft, nontender Extremities: edema in lower extremities bilaterally. Results & Data Results & Data Vital Signs (Past 12 Hours) Vital Signs Temp Pulse Pulse Pulse Pulse Resp Resp 11/09/24 12:46 96 H 97 H 22 11/09/24 08:00 78 11/09/24 08:00 36.6 C 79 17 11/09/24 07:10 11/09/24 03:30 76 13 11/09/24 03:15 36.6 C 77 18 Resp BP Pulse Ox Pulse Ox Pulse Ox O2 Del Method 11/09/24 12:46 18 95 98 11/09/24 08:00 11/09/24 08:00 120/60 Room Air 11/09/24 07:10 Room Air 11/09/24 03:30 96 11/09/24 03:15 112/70 97 Room Air
[2024-11-09] MEDS: INSULIN ASPART PER UNIT CHARGE SC SCH ×2 (17:16→20:46)
[2024-11-10 07:17] LABS: Basophils # (auto) 0.06 K/uL (0.00-0.20); Basophils % (auto) 0.7 %; Eosinophils % (auto) 3.4 %; Hematocrit (blood only) 29.7 % (37.0-47.0); Hemoglobin 9.3 g/dl (12.0-16.0); Immature Granulocytes # (auto) 0.02 K/uL (0.01-0.20); Immature Granulocytes % (auto) 0.2 %; Lymphocytes # (auto) 3.14 K/uL (1.20-3.40); Lymphocytes % (auto) 35.9 %; Mean Corpuscular Hemoglobin 31.2 pg (25.0-34.0); Mean Corpuscular Hgb Conc 31.3 g/dL (32.0-36.0); Mean Corpuscular Volume 99.7 fL (80.0-100.0); Mean Platelet Volume 11.2 fL (9.4-12.4); Monocytes # (auto) 0.71 K/uL (0.11-0.59); Monocytes % (auto) 8.1 %; Neutrophils # (auto) 4.52 K/uL (1.40-6.50); Neutrophils % (auto) 51.7 %; Platelet Count 157 K/uL (130-400); RDW Coefficient of Variation 16.6 % (11.5-14.5); RDW Standard Deviation 57.3 fL (36.4-46.3); Red Blood Count 2.98 M/uL (4.20-5.40); White Blood Count 8.75 K/ul (4.8-10.8)
[2024-11-10 07:52] LABS: Albumin Globulin Ratio 1.4 (0.9-2); Albumin Level 3.6 gm/dl (3.4-5.0); BUN Creatinine Ratio 5.7 (10-20); Bilirubin,Total 0.4 mg/dl (0.2-1.0); Calcium 9.6 mg/dl (8.6-10.3); Creatinine Clr Calc Pharmacy 11.9 ml/min; Globulin 2.5 gm/dl (2.5-4.0); Magnesium 2.3 mg/dl (1.7-2.4); Phosphorus 3.2 mg/dl (2.5-4.9); Potassium 4.4 mmol/L (3.5-5.1); Total Protein 6.1 gm/dl (6.0-8.3)
--- NOTE | 2024-11-10 10:50 | Dialysis Progress Note ---
Date of Service November 10, 2024 Assessment & Plan Admission and Anticipated Discharge Date Admission Date: November 03, 2024 Subjective Assessment & Plan (1) ESRD (end stage renal disease) on dialysis: Plan: on OP HD MWF. We discussed about doing 4 days a week HD as outpt. She has agreed. OP dialysis unit aware she may need 4 days weekly longer txs 4hr 15 mins today and take 3 kilo off. her current wt is almost 4 kilo more than her regular dialysis Post wt. Will do extra dialysis tomorrow if she is still here to get her wt down to baseline. Not sure about the discharge though. Plan is for discharge to [facility] where she can also get dialysis. Will investigate if she can have extra 3 hr dialysis on Friday there or at [facility] unit. (2) Ventricular tachycardia: Plan: cardiology working out best combination >> ? amio and BB or BB alone or other Bp drops after dialysis with V tach is a new phenomenon. will raise time to 4hr 15 mins and then extra day will be 3 hrs. (3) Mitral regurgitation and mitral stenosis: Plan: not a surgical candidate unless absolutely failing conservative mgt Subjective Seen during Dialysis. So far No issues. AVF fine. BP fine Review of Systems Review of Systems: All systems reviewed & are unremarkable except as noted in Subjective Physical Exam Constitutional: well developed (sitting in bed on 02nc), well nourished and + obese; no acute distress Eyes: EOM intact bilaterally ENMT: Mouth: + dry oral mucous membranes Respiratory: normal respiratory effort Auscultation: + diminished lung sounds Cardiovascular: Rate/Rhythm: regular rate and regular rhythm Extremities: + AV fistula (+t/b); no edema Gastrointestinal (Abdomen): Inspection/Auscultation: normal bowel sounds Percussion/Palpation: abdomen soft; abdomen nontender Musculoskeletal: Extremities: strength 5/5 throughout Skin: no rashes, warm and dry Psychiatric: Orientation: alert and oriented x 3 Results & Data Vital Signs (Past 12 Hours) Vital Signs Temp Pulse Pulse Resp BP BP Pulse Ox 11/10/24 10:30 75 113/57 L 11/10/24 10:00 75 110/55 L 11/10/24 09:30 75 104/58 L 11/10/24 09:16 75 116/57 L 11/10/24 09:10 36.5 C 78 11/10/24 08:00 75 11/10/24 08:00 36.5 C 75 18 135/60 96 11/10/24 03:44 36.6 C 85 16 111/73 98 11/10/24 03:35 12 11/09/24 23:34 82 26 H 97 O2 Del Method 11/10/24 10:30 11/10/24 10:00 11/10/24 09:30 11/10/24 09:16 11/10/24 09:10 11/10/24 08:00 11/10/24 08:00 CPAP 11/10/24 03:44 CPAP 11/10/24 03:35 11/09/24 23:34
[2024-11-10] MEDS: EPOETIN ALFA 10,000 UNITS/ML VIAL IV SCH (12:46)
[2024-11-10] MEDS: EPOETIN ALFA 10,000 UNITS in SYRINGE 0 ML IV SCH (14:16)
--- NOTE | 2024-11-10 20:28 | Hospitalist Progress Note ---
Date of Service November 10, 2024 Assessment & Plan (1) Ventricular tachycardia: Plan 63-year-old female with past medical history significant for sick sinus syndrome s/p pacemaker placement with recent ICD upgrade in September of 2024, type 2 diabetes, diabetic polyneuropathy, end-stage renal disease on hemodialysis, dyslipidemia, hypothyroidism, diabetic gastroparesis, diabetic retinopathy, obstructive sleep apnea on CPAP, chronic diastolic CHF, pulmonary hypertension, hypertension, GERD, morbid obesity, status post gastric bypass, depression, history of endometrial cancer, CHIDI inhibitor intolerance, recurrent ventral incisional hernia who presents with multiple episodes of near syncope after dialysis today. Ventricular Tachycardia Presyncope Pt noting frequent episodes at home Multiple episodes in the ED, pt remained hemodynamically stable Cardiology consulted, appreciate recs -amiodarone drip-->has since transitioned to po amiodarone -doses of Lopressor and Magnesium given in the ED -s/p AICD adjustment by EP on admission on 11/03 and by medtronic on 11/08 -echo with EF 55-60%, mild , severe MR, mod MS, mild TR, mod pulm HTN -continue on metoprolol succinate 25mg daily, amiodarone 400mg BID Continue to monitor on telemetry Appreciate further cardiology recs 11/09-notified by respiratory that though pt's 2 step revealed she did not need oxygen for home use, she expressed concern about going home given how SOB she felt. She stated that this was similar to her prior discharge from [facility] where she was later told she would need oxygen. Pt agreeable to evaluation by PT/OT for a possible short rehab/SNF stay. Also seen by cardiology today and cardiology aware. Appreciate PT/OT recs 11/10 Pt interested in rehab/ Center care - had PT/OT eval today- will discuss with CM Chronic Anemia Hgb 9.7 on admission, currently 9.3 Continue to monitor H/H DMII Basal/bolus protocol for hyperglycemia ESRD on dialysis Follows with [facility] Nephrology consulted - had HD today (11/10) and plan for HD tmrw (11/11) as pt's weight is still up. Also plan for outpt HD 4x a week, instead of 3x Continue to monitor Continue other home meds as ordered Diet: advance as tolerated DVT prophylaxis: heparin SQ Dispo: pcu Admission and Anticipated Discharge Date Admission Date: November 03, 2024 Subjective Pt seen in follow up of VT, s/p ICD shock, pt on HD Currently pt is sitting up in chair in NAD, pt's present at the bedside Pt reports feeling very short of breath after ambulating worked w/ PT today had 2 step test done and did not qualify for suppl. O2 She is interested in rehab/ Center care - will discuss w/ CM Had HD today, per nephro will have HD tmrw as she her weight is still up. Plan for outpt HD 4 times a week instead of 3x Review of Systems Review of Systems: All systems reviewed & are unremarkable except as noted in Subjective Physical Exam Physical Exam: General: obese F in NAD, Alert, oriented HEENT: NC/AT, EOMI CV: RRR, + murmur Resp: Breath sounds clear bilaterally, no increased effort of breathing Abdomen: Soft, nontender, + obese Extremities: mild edema in lower extremities bilaterally. Skin: warm, dry Results & Data Results & Data Vital Signs (Past 12 Hours) Vital Signs Temp Pulse Pulse Pulse Resp BP BP 11/10/24 19:47 36.7 C 84 18 110/67 11/10/24 15:42 75 11/10/24 15:00 36.6 C 68 20 128/56 L 11/10/24 13:40 36.5 C 75 113/63 11/10/24 13:00 77 122/68 11/10/24 12:30 70 87/68 L 11/10/24 12:00 75 111/61 11/10/24 11:30 60 118/72 11/10/24 11:00 75 111/60 11/10/24 10:30 75 113/57 L 11/10/24 10:00 75 110/55 L 11/10/24 09:30 75 104/58 L 11/10/24 09:16 75 116/57 L 11/10/24 09:10 36.5 C 78 Pulse Ox O2 Del Method 11/10/24 19:47 97 Nasal Cannula 11/10/24 15:42 11/10/24 15:00 97 CPAP 11/10/24 13:40 11/10/24 13:00 11/10/24 12:30 11/10/24 12:00 11/10/24 11:30 11/10/24 11:00 11/10/24 10:30 11/10/24 10:00 11/10/24 09:30 11/10/24 09:16 11/10/24 09:10 Laboratory Results 11/10/24 11/10/24 11/10/24 Range/Units 19:58 16:26 14:03 WBC (4.8-10.8) K/ul RBC (4.20-5.40) M/uL Hgb (12.0-16.0) g/dl Hct (37.0-47.0) % MCV (80.0-100.0) fL MCH (25.0-34.0) pg MCHC (32.0-36.0) g/dL RDW Std Deviation (36.4-46.3) fL RDW Coeff of Leatha (11.5-14.5) % Plt Count (130-400) K/uL MPV (9.4-12.4) fL Immature Gran % (Auto) % Neut % (Auto) % Lymph % (Auto) % Frontier % (Auto) % Eos % (Auto) % Baso % (Auto) % Neut # (Auto) (1.40-6.50) K/uL Lymph # (Auto) (1.20-3.40) K/uL Frontier # (Auto) (0.11-0.59) K/uL Eos # (Auto) (0.00-0.50) K/uL Baso # (Auto) (0.00-0.20) K/uL Immature Gran # (Auto) (0.01-0.20) K/uL Sodium (136-145) mmol/L Potassium (3.5-5.1) mmol/L Chloride (98-107) mmol/L Carbon Dioxide (21-32) mmol/L Anion Gap (3-11) BUN (6-23) mg/dl Creatinine (0.6-1.2) mg/dl Est Cr Clr Drug Dosing ml/min eGFR BUN/Creatinine Ratio (10-20) Glucose (70-99(Fasting)) mg/dl POC Glucose 159 H 201 H 90 (70-99) mg/dl Calcium (8.6-10.3) mg/dl Phosphorus (2.5-4.9) mg/dl Magnesium (1.7-2.4) mg/dl Total Bilirubin (0.2-1.0) mg/dl AST (13-39) U/L ALT (7-52) U/L Alkaline Phosphatase (34-104) U/L Total Protein (6.0-8.3) gm/dl Albumin (3.4-5.0) gm/dl Globulin (2.5-4.0) gm/dl Albumin/Globulin Ratio (0.9-2) 11/10/24 11/10/24 11/09/24 Range/Units 07:25 05:54 20:36 WBC 8.75 (4.8-10.8) K/ul RBC 2.98 L (4.20-5.40) M/uL Hgb 9.3 L (12.0-16.0) g/dl Hct 29.7 L (37.0-47.0) % MCV 99.7 (80.0-100.0) fL MCH 31.2 (25.0-34.0) pg MCHC 31.3 L (32.0-36.0) g/dL RDW Std Deviation 57.3 H (36.4-46.3) fL RDW Coeff of Leatha 16.6 H (11.5-14.5) % Plt Count 157 (130-400) K/uL MPV 11.2 (9.4-12.4) fL Immature Gran % (Auto) 0.2 % Neut % (Auto) 51.7 % Lymph % (Auto) 35.9 % Frontier % (Auto) 8.1 % Eos % (Auto) 3.4 % Baso % (Auto) 0.7 % Neut # (Auto) 4.52 (1.40-6.50) K/uL Lymph # (Auto) 3.14 (1.20-3.40) K/uL Frontier # (Auto) 0.71 H (0.11-0.59) K/uL Eos # (Auto) 0.30 (0.00-0.50) K/uL Baso # (Auto) 0.06 (0.00-0.20) K/uL Immature Gran # (Auto) 0.02 (0.01-0.20) K/uL Sodium 136 (136-145) mmol/L Potassium 4.4 (3.5-5.1) mmol/L Chloride 98 (98-107) mmol/L Carbon Dioxide 27 (21-32) mmol/L Anion Gap 11 (3-11) BUN 31 H (6-23) mg/dl Creatinine 5.42 H* D (0.6-1.2) mg/dl Est Cr Clr Drug Dosing 11.9 ml/min eGFR 8.23 BUN/Creatinine Ratio 5.7 L (10-20) Glucose 123 H (70-99(Fasting)) mg/dl POC Glucose 100 H 109 H (70-99) mg/dl Calcium 9.6 (8.6-10.3) mg/dl Phosphorus 3.2 (2.5-4.9) mg/dl Magnesium 2.3 (1.7-2.4) mg/dl Total Bilirubin 0.4 (0.2-1.0) mg/dl AST 21 (13-39) U/L ALT 16 (7-52) U/L Alkaline Phosphatase 114 H (34-104) U/L Total Protein 6.1 (6.0-8.3) gm/dl Albumin 3.6 (3.4-5.0) gm/dl Globulin 2.5 (2.5-4.0) gm/dl Albumin/Globulin Ratio 1.4 (0.9-2) Medications Administered Current Inpatient Medications Acetaminophen (Acetaminophen 325 Mg Tab) 650 mg PO Q6H PRN PRN Reason: Pain or Fever Stop: 12/03/24 21:43 Last Admin: 11/09/24 20:45 Dose: 650 mg Albuterol (Albuterol 0.083% Nebu Soln 3 Ml Vial) 0.63 mg INH Q6H PRN PRN Reason: Wheezing Stop: 12/03/24 23:18 Amiodarone HCl (Amiodarone 200 Mg Tab) 400 mg PO BIDM [facility] Stop: 12/05/24 16:59 Last Admin: 11/10/24 17:03 Dose: 400 mg Aspirin (Aspirin 81 Mg Ectab) 81 mg PO HS [facility] Stop: 12/04/24 20:59 Last Admin: 11/10/24 20:26 Dose: 81 mg Atorvastatin Calcium (Atorvastatin 40 Mg Tab) 40 mg PO QPM [facility] Stop: 12/04/24 20:59 Last Admin: 11/10/24 20:25 Dose: 40 mg Calcium Acetate (Calcium Acetate 667 Mg Cap/Tab) 2,001 mg PO TID@0630,1030,1430 [facility] Stop: 12/07/24 06:29 Last Admin: 11/10/24 14:16 Dose: Not Given Calcium/Vitamin D (Calcium 600mg + Vit D 400 Iu Tab) 1 tab PO BID [facility] Stop: 12/04/24 08:59 Last Admin: 11/10/24 20:25 Dose: 1 tab Citalopram Hydrobromide (Citalopram 20 Mg Tab) 20 mg PO QAM [facility] Stop: 12/04/24 08:59 Last Admin: 11/10/24 08:01 Dose: 20 mg Colestipol HCl (Colestipol Hcl 1 Gm Tab) 2 gm PO QDL PRN PRN Reason: Diarrhea Stop: 12/03/24 21:43 Last Admin: 11/10/24 16:03 Dose: 2 gm Dextrose (Dextrose 50% 50 Ml Syringe) 25 - 50 ml IV UD PRN; Protocol PRN Reason: Hypoglycemia Protocol Stop: 12/03/24 22:11 Epoetin Jordan (Epoetin Jordan 10,000 Units/Ml Vial) 10,000 units IV TODAY@ [facility] Stop: 12/10/24 10:29 Last Admin: 11/10/24 12:46 Dose: 10,000 units Epoetin Jordan (Epoetin Jordan 4,000 Unit/Ml Vial) 4,000 units IV ONE ONE Stop: 11/11/24 07:01 Gabapentin (Gabapentin 300 Mg Cap) 300 mg PO HS [facility] Stop: 12/04/24 20:59 Last Admin: 11/10/24 20:25 Dose: 300 mg Glucagon (Glucagon For Inj 1 Mg Vial) 1 mg SQ UD PRN; Protocol PRN Reason: Hypoglycemia Protocol Stop: 12/03/24 22:11 Glucose (Glucose 40% Gel 15 Gm Tube) 15 - 30 gm PO UD PRN; Protocol PRN Reason: Hypoglycemia Protocol Stop: 12/03/24 22:11 Glucose (Glucose 10 Tab/Tube) 4 - 8 tab PO UD PRN; Protocol PRN Reason: Hypoglycemia Protocol Stop: 12/03/24 22:11 Heparin Sodium (Porcine) (Heparin Sod 5,000 Unit/0.5 Ml Vial) 5,000 units SQ Q12 [facility] Stop: 12/04/24 08:59 Last Admin: 11/10/24 20:26 Dose: 5,000 units Sodium Chloride (Nss) 1,000 mls @ 0 mls/hr IV .Q0M PRN PRN Reason: For Hemodialysis Use ONLY Stop: 11/11/24 06:59 Sodium Chloride (Nss) 1,000 mls @ 0 mls/hr IV .Q0M PRN PRN Reason: For Hemodialysis Use ONLY Stop: 11/12/24 06:59 Promethazine HCl (Phenergan) 6.25 mg in 50.25 mls @ 201 mls/hr IV Q6H PRN PRN Reason: Nausea And Vomiting Stop: 12/06/24 16:10 Last Infusion: 11/06/24 17:04 Dose: Infused Sodium Chloride (Nss) 1,000 mls @ 0 mls/hr IV .Q0M PRN PRN Reason: For Hemodialysis Use ONLY Stop: 11/14/24 06:59 Sodium Chloride (Nss) 1,000 mls @ 0 mls/hr IV .Q0M PRN PRN Reason: For Hemodialysis Use ONLY Stop: 11/17/24 06:59 Insulin Aspart (Insulin Aspart Per Unit Charge) 0 units SC AC [facility] Stop: 12/03/24 22:29 Last Admin: 11/10/24 17:03 Dose: 8 units Insulin Aspart (Insulin Aspart Per Unit Charge) 0 units SC [facility] Stop: 12/09/24 20:59 Last Admin: 11/09/24 20:46 Dose: Not Given Insulin Glargine (Lantus Per Unit Charge) 10 units SQ QAM [facility] Stop: 12/04/24 08:59 Last Admin: 11/10/24 07:55 Dose: 10 units Levothyroxine Sodium (Levothyroxine Sodium 100 Mcg Tablet) [facility]: 12/04/24 06:29 Last Admin: 11/10/24 05:57 Dose: 100 mcg Melatonin (Melatonin 3 Mg Tab) 9 mg PO [facility] Stop: 12/04/24 20:59 Last Admin: 11/10/24 20:25 Dose: 9 mg Metoprolol Succinate (Metoprolol Succ 25mg Ext Rel Tab) 25 mg PO QAM [facility] Stop: 12/04/24 10:29 Last Admin: 11/10/24 16:04 Dose: 25 mg Midodrine (Midodrine Hcl 2.5 Mg Tab) 5 mg PO MoWeFr@0800,1000 PRN PRN Reason: for BP support due to HD Stop: 12/03/24 22:05 Last Admin: 11/06/24 08:24 Dose: 5 mg Miscellaneous (Carbohydrates For Hypoglycemia ) 15 - 30 gm PO UD PRN PRN Reason: Hypoglycemia Protocol Stop: 12/03/24 22:11 Last Admin: 11/09/24 01:35 Dose: 15 gm Multivitamins/Folic Acid/Vitamin C (Multivitamin Chewable Tab) 1 tab PO DAILY [facility] Stop: 12/04/24 08:59 Last Admin: 11/10/24 07:59 Dose: 1 tab Nitroglycerin (Nitroglycerin Sl 0.4 Mg/Tab Tab) 0.4 mg SL Q5M PRN PRN Reason: CHEST PAIN Stop: 12/03/24 23:01 Oxycodone HCl (Oxycodone Hcl Ir 5 Mg Tab (Immediate Release)) 5 mg PO Q4H PRN PRN Reason: Pain Stop: 11/19/24 01:48 Last Admin: 11/05/24 02:00 Dose: 5 mg Pantoprazole Sodium (Pantoprazole 40 Mg Tab) 40 mg PO QAM [facility] Stop: 12/04/24 08:59 Last Admin: 11/10/24 08:00 Dose: 40 mg Vitamin B Complex/Folic Acid (Nephrocaps) 1 cap PO DAILY [facility] Stop: 12/04/24 08:59 Last Admin: 11/10/24 07:58 Dose: 1 cap Vitamin D (Cholecalciferol 125 Mcg (5,000 Units) Tab) 125 mcg PO DAILY [facility] Stop: 12/04/24 08:59 Last Admin: 11/10/24 08:00 Dose: 125 mcg
[2024-11-11 06:59] LABS: Hematocrit (blood only) 29.7 % (37.0-47.0); Hemoglobin 9.4 g/dl (12.0-16.0); Mean Corpuscular Hemoglobin 31.4 pg (25.0-34.0); Mean Corpuscular Hgb Conc 31.6 g/dL (32.0-36.0); Mean Corpuscular Volume 99.3 fL (80.0-100.0); Mean Platelet Volume 10.9 fL (9.4-12.4); Platelet Count 143 K/uL (130-400); RDW Coefficient of Variation 16.7 % (11.5-14.5); RDW Standard Deviation 59.1 fL (36.4-46.3); Red Blood Count 2.99 M/uL (4.20-5.40); White Blood Count 9.41 K/ul (4.8-10.8)
[2024-11-11] MEDS ORDERED: SODIUM CHLORIDE 0.9% 1,000 ML IV PRN ×2 (07:00→09:51)
[2024-11-11 07:09] LABS: BUN Creatinine Ratio 5.2 (10-20); Calcium 9.6 mg/dl (8.6-10.3); Magnesium 2.1 mg/dl (1.7-2.4); Potassium 4.3 mmol/L (3.5-5.1)
--- NOTE | 2024-11-11 10:44 | Dialysis Progress Note ---
Date of Service November 11, 2024 Assessment & Plan Admission and Anticipated Discharge Date Admission Date: November 03, 2024 Subjective Assessment & Plan (1) ESRD (end stage renal disease) on dialysis: Plan: on OP HD MWF. We discussed about doing 4 days a week HD as outpt. She has agreed. OP dialysis unit aware she may need 4 days weekly longer txs 4hr today and take 3 kilo off. her current wt is almost 4 kilo more than her regular dialysis Post wt. Will do extra dialysis tomorrow if she is still here to get her wt down to baseline. (2) Ventricular tachycardia: Plan: cardiology working out best combination >> ? amio and BB or BB alone or other Bp drops after dialysis with V tach is a new phenomenon. will raise time to 4hr 15 mins and then extra day will be 3 hrs. (3) Mitral regurgitation and mitral stenosis: Plan: not a surgical candidate unless absolutely failing conservative mgt Subjective Seen during Dialysis. So far No issues. AVF fine. BP fine Review of Systems Review of Systems: All systems reviewed & are unremarkable except as noted in Subjective Physical Exam Constitutional: well developed (sitting in bed on 02nc), well nourished and + obese; no acute distress Eyes: EOM intact bilaterally ENMT: Mouth: + dry oral mucous membranes Respiratory: normal respiratory effort Auscultation: + diminished lung sounds Cardiovascular: Rate/Rhythm: regular rate and regular rhythm Extremities: + AV fistula (+t/b); no edema Gastrointestinal (Abdomen): Inspection/Auscultation: normal bowel sounds Percussion/Palpation: abdomen soft; abdomen nontender Musculoskeletal: Extremities: strength 5/5 throughout Skin: no rashes, warm and dry Psychiatric: Orientation: alert and oriented x 3 Results & Data Vital Signs (Past 12 Hours) Vital Signs Temp Pulse Pulse Pulse Resp BP BP 11/11/24 10:00 75 105/53 L 11/11/24 09:30 76 125/59 L 11/11/24 09:25 72 110/58 L 11/11/24 09:16 36.7 C 76 11/11/24 08:57 89 119/78 11/11/24 08:00 11/11/24 08:00 72 11/11/24 07:15 36.3 C L 81 18 113/63 11/11/24 03:06 36.5 C 80 18 107/63 11/11/24 02:19 85 14 11/10/24 23:30 84 14 11/10/24 22:50 36.6 C 78 20 121/76 Pulse Ox O2 Del Method 11/11/24 10:00 11/11/24 09:30 11/11/24 09:25 11/11/24 09:16 11/11/24 08:57 11/11/24 08:00 Room Air 11/11/24 08:00 11/11/24 07:15 95 Room Air 11/11/24 03:06 96 CPAP 11/11/24 02:19 95 11/10/24 23:30 97 11/10/24 22:50 94 Nasal Cannula
[2024-11-11] MEDS: HEPARIN SOD (PORCINE) 1000 UNIT/ML IV ONE (11:01)
[2024-11-11] MEDS: HEPARIN SOD (PORCINE) 1000 UNIT/ML IV SCH (11:01)
[2024-11-11] MEDS: EPOETIN ALFA 4,000 UNIT/ML VIAL IV ONE (11:23)
--- NOTE | 2024-11-11 13:40 | Hospitalist Progress Note ---
Date of Service November 11, 2024 Assessment & Plan (1) Ventricular tachycardia: Plan 63-year-old female with past medical history significant for sick sinus syndrome s/p pacemaker placement with recent ICD upgrade in September of 2024, type 2 diabetes, diabetic polyneuropathy, end-stage renal disease on hemodialysis, dyslipidemia, hypothyroidism, diabetic gastroparesis, diabetic retinopathy, obstructive sleep apnea on CPAP, chronic diastolic CHF, pulmonary hypertension, hypertension, GERD, morbid obesity, status post gastric bypass, depression, history of endometrial cancer, CHIDI inhibitor intolerance, recurrent ventral incisional hernia who presents with multiple episodes of near syncope after dialysis today. Ventricular Tachycardia Presyncope Pt noting frequent episodes at home Multiple episodes in the ED, pt remained hemodynamically stable Cardiology consulted, appreciate recs -amiodarone drip-->has since transitioned to po amiodarone -doses of Lopressor and Magnesium given in the ED -s/p AICD adjustment by EP on admission on 11/03 and by med[employer] on 11/08 -echo with EF 55-60%, mild , severe MR, mod MS, mild TR, mod pulm HTN -continue on metoprolol succinate 25mg daily, amiodarone 400mg BID Continue to monitor on telemetry Appreciate further cardiology recs 11/09-notified by respiratory that though pt's 2 step revealed she did not need oxygen for home use, she expressed concern about going home given how SOB she felt. She stated that this was similar to her prior discharge from [facility] where she was later told she would need oxygen. Pt agreeable to evaluation by PT/OT for a possible short rehab/SNF stay. Also seen by cardiology today and cardiology aware. Appreciate PT/OT recs 11/10 Pt interested in rehab/ Center care - had PT/OT eval today- will discuss with CM Chronic Anemia Hgb 9.7 on admission, currently 9.4 Continue to monitor H/H DMII Basal/bolus protocol for hyperglycemia ESRD on dialysis Follows with [facility] Nephrology consulted - had HD on (11/10) and today (11/11). Also plan for outpt HD 4x a week, instead of 3x Continue to monitor Continue other home meds as ordered Diet: advance as tolerated DVT prophylaxis: heparin SQ Dispo: plan to DC to Center care when bed available Admission and Anticipated Discharge Date Admission Date: November 03, 2024 Subjective Pt seen in follow up of VT, s/p ICD shock, pt on HD Currently pt on HD in NAD She is interested in rehab/ Center care - CM aware and in contact w/ rehab Per nephrology, plan for outpt HD 4 times a week instead of 3x Review of Systems Review of Systems: All systems reviewed & are unremarkable except as noted in Subjective Physical Exam Physical Exam: General: obese F in NAD, Alert, oriented HEENT: NC/AT, EOMI CV: RRR, + murmur Resp: Breath sounds clear bilaterally, no increased effort of breathing Abdomen: Soft, nontender, + obese Extremities: mild edema in lower extremities bilaterally. Skin: warm, dry Results & Data Results & Data Vital Signs (Past 12 Hours) Vital Signs Temp Pulse Pulse Pulse Resp BP BP 11/11/24 13:00 75 82/64 L 11/11/24 12:30 77 111/44 L 11/11/24 12:00 82 109/59 L 11/11/24 11:30 75 114/59 L 11/11/24 11:00 75 112/60 11/11/24 10:30 75 108/58 L 11/11/24 10:00 75 105/53 L 11/11/24 09:30 76 125/59 L 11/11/24 09:25 72 110/58 L 11/11/24 09:16 36.7 C 76 11/11/24 08:57 89 119/78 11/11/24 08:00 11/11/24 08:00 72 11/11/24 07:15 36.3 C L 81 18 113/63 11/11/24 03:06 36.5 C 80 18 107/63 11/11/24 02:19 85 14 Pulse Ox O2 Del Method 11/11/24 13:00 11/11/24 12:30 11/11/24 12:00 11/11/24 11:30 11/11/24 11:00 11/11/24 10:30 11/11/24 10:00 11/11/24 09:30 11/11/24 09:25 11/11/24 09:16 11/11/24 08:57 11/11/24 08:00 Room Air 11/11/24 08:00 11/11/24 07:15 95 Room Air 11/11/24 03:06 96 CPAP 11/11/24 02:19 95 Laboratory Results 11/11/24 11/11/24 11/10/24 Range/Units 07:15 05:56 19:58 WBC 9.41 (4.8-10.8) K/ul RBC 2.99 L (4.20-5.40) M/uL Hgb 9.4 L (12.0-16.0) g/dl Hct 29.7 L (37.0-47.0) % MCV 99.3 (80.0-100.0) fL MCH 31.4 (25.0-34.0) pg MCHC 31.6 L (32.0-36.0) g/dL RDW Std Deviation 59.1 H (36.4-46.3) fL RDW Coeff of Leatha 16.7 H (11.5-14.5) % Plt Count 143 (130-400) K/uL MPV 10.9 (9.4-12.4) fL Sodium 135 L (136-145) mmol/L Potassium 4.3 (3.5-5.1) mmol/L Chloride 98 (98-107) mmol/L Carbon Dioxide 29 (21-32) mmol/L Anion Gap 8 (3-11) BUN 21 (6-23) mg/dl Creatinine 4.02 H D (0.6-1.2) mg/dl Est Cr Clr Drug Dosing 16.0 ml/min eGFR 11.77 BUN/Creatinine Ratio 5.2 L (10-20) Glucose 171 H (70-99(Fasting)) mg/dl POC Glucose 193 H 159 H (70-99) mg/dl Calcium 9.6 (8.6-10.3) mg/dl Phosphorus 3.0 (2.5-4.9) mg/dl Magnesium 2.1 (1.7-2.4) mg/dl 11/10/24 11/10/24 Range/Units 16:26 14:03 WBC (4.8-10.8) K/ul RBC (4.20-5.40) M/uL Hgb (12.0-16.0) g/dl Hct (37.0-47.0) % MCV (80.0-100.0) fL MCH (25.0-34.0) pg MCHC (32.0-36.0) g/dL RDW Std Deviation (36.4-46.3) fL RDW Coeff of Leatha (11.5-14.5) % Plt Count (130-400) K/uL MPV (9.4-12.4) fL Sodium (136-145) mmol/L Potassium (3.5-5.1) mmol/L Chloride (98-107) mmol/L Carbon Dioxide (21-32) mmol/L Anion Gap (3-11) BUN (6-23) mg/dl Creatinine (0.6-1.2) mg/dl Est Cr Clr Drug Dosing ml/min eGFR BUN/Creatinine Ratio (10-20) Glucose (70-99(Fasting)) mg/dl POC Glucose 201 H 90 (70-99) mg/dl Calcium (8.6-10.3) mg/dl Phosphorus (2.5-4.9) mg/dl Magnesium (1.7-2.4) mg/dl Medications Administered Current Inpatient Medications Acetaminophen (Acetaminophen 325 Mg Tab) 650 mg PO Q6H PRN PRN Reason: Pain or Fever Stop: 12/03/24 21:43 Last Admin: 11/09/24 20:45 Dose: 650 mg Albuterol (Albuterol 0.083% Nebu Soln 3 Ml Vial) 0.63 mg INH Q6H PRN PRN Reason: Wheezing Stop: 12/03/24 23:18 Amiodarone HCl (Amiodarone 200 Mg Tab) 400 mg PO BIDM [facility] Stop: 12/05/24 16:59 Last Admin: 11/11/24 08:11 Dose: 400 mg Aspirin (Aspirin 81 Mg Ectab) 81 mg PO HS [facility] Stop: 12/04/24 20:59 Last Admin: 11/10/24 20:26 Dose: 81 mg Atorvastatin Calcium (Atorvastatin 40 Mg Tab) 40 mg PO QPM [facility] Stop: 12/04/24 20:59 Last Admin: 11/10/24 20:25 Dose: 40 mg Calcium Acetate (Calcium Acetate 667 Mg Cap/Tab) 2,001 mg PO TID@0630,1030,1430 [facility] Stop: 12/07/24 06:29 Last Admin: 11/11/24 12:38 Dose: Not Given Calcium/Vitamin D (Calcium 600mg + Vit D 400 Iu Tab) 1 tab PO BID [facility] Stop: 12/04/24 08:59 Last Admin: 11/11/24 08:12 Dose: 1 tab Citalopram Hydrobromide (Citalopram 20 Mg Tab) 20 mg PO QAM [facility] Stop: 12/04/24 08:59 Last Admin: 11/11/24 08:12 Dose: 20 mg Colestipol HCl (Colestipol Hcl 1 Gm Tab) 2 gm PO QDL PRN PRN Reason: Diarrhea Stop: 12/03/24 21:43 Last Admin: 11/10/24 16:03 Dose: 2 gm Dextrose (Dextrose 50% 50 Ml Syringe) 25 - 50 ml IV UD PRN; Protocol PRN Reason: Hypoglycemia Protocol Stop: 12/03/24 22:11 Gabapentin (Gabapentin 300 Mg Cap) 300 mg PO HS [facility] Stop: 12/04/24 20:59 Last Admin: 11/10/24 20:25 Dose: 300 mg Glucagon (Glucagon For Inj 1 Mg Vial) 1 mg SQ UD PRN; Protocol PRN Reason: Hypoglycemia Protocol Stop: 12/03/24 22:11 Glucose (Glucose 40% Gel 15 Gm Tube) 15 - 30 gm PO UD PRN; Protocol PRN Reason: Hypoglycemia Protocol Stop: 12/03/24 22:11 Glucose (Glucose 10 Tab/Tube) 4 - 8 tab PO UD PRN; Protocol PRN Reason: Hypoglycemia Protocol Stop: 12/03/24 22:11 Heparin Sodium (Porcine) (Heparin Sod 5,000 Unit/0.5 Ml Vial) 5,000 units SQ Q12 [facility] Stop: 12/04/24 08:59 Last Admin: 11/11/24 08:14 Dose: 5,000 units Sodium Chloride (Nss) 1,000 mls @ 0 mls/hr IV .Q0M PRN PRN Reason: For Hemodialysis Use ONLY Stop: 11/12/24 06:59 Promethazine HCl (Phenergan) 6.25 mg in 50.25 mls @ 201 mls/hr IV Q6H PRN PRN Reason: Nausea And Vomiting Stop: 12/06/24 16:10 Last Infusion: 11/06/24 17:04 Dose: Infused Sodium Chloride (Nss) 1,000 mls @ 0 mls/hr IV .Q0M PRN PRN Reason: For Hemodialysis Use ONLY Stop: 11/14/24 06:59 Sodium Chloride (Nss) 1,000 mls @ 0 mls/hr IV .Q0M PRN PRN Reason: For Hemodialysis Use ONLY Stop: 11/17/24 06:59 Sodium Chloride (Nss) 1,000 mls @ 0 mls/hr IV .Q0M PRN PRN Reason: For Hemodialysis Use ONLY Stop: 11/11/24 15:50 Insulin Aspart (Insulin Aspart Per Unit Charge) 0 units SC AC [facility] Stop: 12/03/24 22:29 Last Admin: 11/11/24 08:12 Dose: 10 units Insulin Aspart (Insulin Aspart Per Unit Charge) 0 units SC HS [facility] Stop: 12/09/24 20:59 Last Admin: 11/10/24 20:30 Dose: Not Given Insulin Glargine (Lantus Per Unit Charge) 10 units SQ QAM [facility] Stop: 12/04/24 08:59 Last Admin: 11/11/24 08:12 Dose: 10 units Levothyroxine Sodium (Levothyroxine Sodium 100 Mcg Tablet) 100 mcg PO DAILYBB [facility] Stop: 12/04/24 06:29 Last Admin: 11/11/24 05:48 Dose: 100 mcg Melatonin (Melatonin 3 Mg Tab) 9 mg PO [facility] Stop: 12/04/24 20:59 Last Admin: 11/10/24 20:25 Dose: 9 mg Metoprolol Succinate (Metoprolol Succ 25mg Ext Rel Tab) [facility] Stop: 12/04/24 10:29 Last Admin: 11/10/24 16:04 Dose: 25 mg Midodrine (Midodrine Hcl 2.5 Mg Tab) 5 mg PO MoWeFr@0800,1000 PRN PRN Reason: for BP support due to HD Stop: 12/03/24 22:05 Last Admin: 11/11/24 11:23 Dose: 5 mg Miscellaneous (Carbohydrates For Hypoglycemia ) 15 - 30 gm PO UD PRN PRN Reason: Hypoglycemia Protocol Stop: 12/03/24 22:11 Last Admin: 11/09/24 01:35 Dose: 15 gm Multivitamins/Folic Acid/Vitamin C (Multivitamin Chewable Tab) 1 tab PO DAILY [facility] Stop: 12/04/24 08:59 Last Admin: 11/10/24 07:59 Dose: 1 tab Nitroglycerin (Nitroglycerin Sl 0.4 Mg/Tab Tab) 0.4 mg SL Q5M PRN PRN Reason: CHEST PAIN Stop: 12/03/24 23:01 Oxycodone HCl (Oxycodone Hcl Ir 5 Mg Tab (Immediate Release)) 5 mg PO Q4H PRN PRN Reason: Pain Stop: 11/19/24 01:48 Last Admin: 11/05/24 02:00 Dose: 5 mg Pantoprazole Sodium (Pantoprazole 40 Mg Tab) 40 mg PO QAM [facility] Stop: 12/04/24 08:59 Last Admin: 11/11/24 08:12 Dose: 40 mg Vitamin B Complex/Folic Acid (Nephrocaps) 1 cap PO DAILY [facility] Stop: 12/04/24 08:59 Last Admin: 11/11/24 08:11 Dose: 1 cap Vitamin D (Cholecalciferol 125 Mcg (5,000 Units) Tab) 125 mcg PO DAILY [facility] Stop: 12/04/24 08:59 Last Admin: 11/11/24 08:12 Dose: 125 mcg
--- NOTE | 2024-11-12 10:19 | Dialysis Progress Note ---
Date of Service November 12, 2024 Assessment & Plan Admission and Anticipated Discharge Date Admission Date: November 03, 2024 Subjective Assessment & Plan (1) ESRD (end stage renal disease) on dialysis: Plan: on OP HD MWF. We discussed about doing 4 days a week HD as outpt. She has agreed. OP dialysis unit aware she may need 4 days weekly longer txs 4hr today and take 2 kilo off. Now back to her regular EDW ? [facility]--She will get HD there on MWF. (2) Ventricular tachycardia: Plan: cardiology working out best combination >> ? amio and BB or BB alone or other Bp drops after dialysis with V tach is a new phenomenon. will raise time to 4hr 15 mins and then extra day will be 3 hrs. (3) Mitral regurgitation and mitral stenosis: Plan: not a surgical candidate unless absolutely failing conservative mgt Subjective Seen during Dialysis. So far No issues. AVF fine. BP fine Review of Systems Review of Systems: All systems reviewed & are unremarkable except as noted in Subjective Physical Exam Constitutional: well developed (sitting in bed on 02nc), well nourished and + obese; no acute distress Eyes: EOM intact bilaterally ENMT: Mouth: + dry oral mucous membranes Respiratory: normal respiratory effort Auscultation: + diminished lung sounds Cardiovascular: Rate/Rhythm: regular rate and regular rhythm Extremities: + AV fistula (+t/b); no edema Gastrointestinal (Abdomen): Inspection/Auscultation: normal bowel sounds Percussion/Palpation: abdomen soft; abdomen nontender Musculoskeletal: Extremities: strength 5/5 throughout Skin: no rashes, warm and dry Psychiatric: Orientation: alert and oriented x 3 Results & Data Vital Signs (Past 12 Hours) Vital Signs Temp Pulse Pulse Resp BP Pulse Ox O2 Del Method 11/12/24 08:00 79 11/12/24 07:41 36.5 C 80 18 130/67 96 Room Air 11/12/24 03:15 77 19 96 11/12/24 03:06 36.6 C 74 18 124/83 96 CPAP 11/11/24 23:11 36.6 C 82 16 126/69 97 Room Air 11/11/24 23:08 80 22 96 11/11/24 23:00 77
--- NOTE | 2024-11-12 17:55 | Hospitalist Progress Note ---
Date of Service November 12, 2024 Assessment & Plan (1) Ventricular tachycardia: Plan 63-year-old female with past medical history significant for sick sinus syndrome s/p pacemaker placement with recent ICD upgrade in September of 2024, type 2 diabetes, diabetic polyneuropathy, end-stage renal disease on hemodialysis, dyslipidemia, hypothyroidism, diabetic gastroparesis, diabetic retinopathy, obstructive sleep apnea on CPAP, chronic diastolic CHF, pulmonary hypertension, hypertension, GERD, morbid obesity, status post gastric bypass, depression, history of endometrial cancer, CHIDI inhibitor intolerance, recurrent ventral incisional hernia who presents with multiple episodes of near syncope after dialysis today. Ventricular Tachycardia Presyncope Pt noting frequent episodes at home Multiple episodes in the ED, pt remained hemodynamically stable Cardiology consulted, appreciate recs -amiodarone drip-->has since transitioned to po amiodarone -doses of Lopressor and Magnesium given in the ED -s/p AICD adjustment by EP on admission on 11/03 and by medtronic on 11/08 -echo with EF 55-60%, mild , severe MR, mod MS, mild TR, mod pulm HTN -continue on metoprolol succinate 25mg daily, amiodarone 400mg BID Continue to monitor on telemetry Appreciate further cardiology recs 11/09-notified by respiratory that though pt's 2 step revealed she did not need oxygen for home use, she expressed concern about going home given how SOB she felt. She stated that this was similar to her prior discharge from [facility] where she was later told she would need oxygen. Pt agreeable to evaluation by PT/OT for a possible short rehab/SNF stay. Also seen by cardiology today and cardiology aware. Appreciate PT/OT recs 11/10 Pt interested in rehab/ [facility] - had PT/OT eval today- will discuss with CM 11/12 plan to DC to [facility] - CM involved Chronic Anemia Hgb 9.7 on admission, currently 9.4 Continue to monitor H/H DMII Basal/bolus protocol for hyperglycemia ESRD on dialysis Follows with [facility] Nephrology consulted - had HD on (11/10), (11/11) and today on 11/12. Also plan for outpt HD 4x a week, instead of 3x Continue to monitor Continue other home meds as ordered Diet: advance as tolerated DVT prophylaxis: heparin SQ Dispo: plan to DC to [facility] when bed available Admission and Anticipated Discharge Date Admission Date: November 03, 2024 Subjective Pt seen in follow up of VT, s/p ICD shock, pt on HD Sitting in chair in NAD She is interested in rehab/ [facility] - CM aware and in contact w/ rehab Per nephrology, plan for outpt HD 4 times a week instead of 3x Review of Systems Review of Systems: All systems reviewed & are unremarkable except as noted in Subjective Physical Exam Physical Exam: General: obese F in NAD, Alert, oriented HEENT: NC/AT, EOMI CV: RRR, + murmur Resp: Breath sounds clear bilaterally, no increased effort of breathing Abdomen: Soft, nontender, + obese Extremities: mild edema in lower extremities bilaterally. Skin: warm, dry Results & Data Results & Data Vital Signs (Past 12 Hours) Vital Signs Temp Pulse Pulse Pulse Resp BP BP 11/12/24 15:21 37.0 C 86 18 135/81 11/12/24 13:48 36.9 C 89 18 118/76 11/12/24 12:30 74 121/65 11/12/24 12:00 75 113/60 11/12/24 11:30 75 122/64 11/12/24 11:00 75 122/62 11/12/24 10:30 75 132/64 11/12/24 10:00 75 130/71 11/12/24 09:30 79 125/63 11/12/24 09:01 36.7 C 77 11/12/24 08:00 79 11/12/24 07:41 36.5 C 80 18 130/67 Pulse Ox O2 Del Method 11/12/24 15:21 96 Room Air 11/12/24 13:48 96 Room Air 11/12/24 12:30 11/12/24 12:00 11/12/24 11:30 11/12/24 11:00 11/12/24 10:30 11/12/24 10:00 11/12/24 09:30 11/12/24 09:01 11/12/24 08:00 11/12/24 07:41 96 Room Air Laboratory Results 11/12/24 11/12/24 11/12/24 Range/Units 16:18 13:49 07:30 POC Glucose 258 H 77 188 H (70-99) mg/dl 11/11/24 Range/Units 20:20 POC Glucose 154 H (70-99) mg/dl Medications Administered Current Inpatient Medications Acetaminophen (Acetaminophen 325 Mg Tab) 650 mg PO Q6H PRN PRN Reason: Pain or Fever Stop: 12/03/24 21:43 Last Admin: 11/12/24 03:17 Dose: 650 mg Albuterol (Albuterol 0.083% Nebu Soln 3 Ml Vial) 0.63 mg INH Q6H PRN PRN Reason: Wheezing Stop: 12/03/24 23:18 Amiodarone HCl (Amiodarone 200 Mg Tab) 400 mg PO BIDM [facility] Stop: 12/05/24 16:59 Last Admin: 11/12/24 17:02 Dose: 400 mg Aspirin (Aspirin 81 Mg Ectab) 81 mg PO HS [facility] Stop: 12/04/24 20:59 Last Admin: 11/11/24 20:37 Dose: 81 mg Atorvastatin Calcium (Atorvastatin 40 Mg Tab) 40 mg PO QPM [facility] Stop: 12/04/24 20:59 Last Admin: 11/11/24 20:37 Dose: 40 mg Calcium Acetate (Calcium Acetate 667 Mg Cap/Tab) 2,001 mg PO TID@0630,1030,1430 [facility] Stop: 12/07/24 06:29 Last Admin: 11/12/24 16:46 Dose: 2,001 mg Calcium/Vitamin D (Calcium 600mg + Vit D 400 Iu Tab) 1 tab PO BID [facility] Stop: 12/04/24 08:59 Last Admin: 11/12/24 08:57 Dose: 1 tab Citalopram Hydrobromide (Citalopram 20 Mg Tab) 20 mg PO QAM [facility] Stop: 12/04/24 08:59 Last Admin: 11/12/24 08:57 Dose: 20 mg Colestipol HCl (Colestipol Hcl 1 Gm Tab) 2 gm PO QDL PRN PRN Reason: Diarrhea Stop: 12/03/24 21:43 Last Admin: 11/11/24 20:36 Dose: 2 gm Dextrose (Dextrose 50% 50 Ml Syringe) 25 - 50 ml IV UD PRN; Protocol PRN Reason: Hypoglycemia Protocol Stop: 12/03/24 22:11 Gabapentin (Gabapentin 300 Mg Cap) 300 mg PO HS [facility] Stop: 12/04/24 20:59 Last Admin: 11/11/24 20:38 Dose: 300 mg Glucagon (Glucagon For Inj 1 Mg Vial) 1 mg SQ UD PRN; Protocol PRN Reason: Hypoglycemia Protocol Stop: 12/03/24 22:11 Glucose (Glucose 40% Gel 15 Gm Tube) 15 - 30 gm PO UD PRN; Protocol PRN Reason: Hypoglycemia Protocol Stop: 12/03/24 22:11 Glucose (Glucose 10 Tab/Tube) 4 - 8 tab PO UD PRN; Protocol PRN Reason: Hypoglycemia Protocol Stop: 12/03/24 22:11 Heparin Sodium (Porcine) (Heparin Sod 5,000 Unit/0.5 Ml Vial) 5,000 units SQ Q12 [facility] Stop: 12/04/24 08:59 Last Admin: 11/12/24 08:59 Dose: 5,000 units Promethazine HCl (Phenergan) 6.25 mg in 50.25 mls @ 201 mls/hr IV Q6H PRN PRN Reason: Nausea And Vomiting Stop: 12/06/24 16:10 Last Infusion: 11/06/24 17:04 Dose: Infused Sodium Chloride (Nss) 1,000 mls @ 0 mls/hr IV .Q0M PRN PRN Reason: For Hemodialysis Use ONLY Stop: 11/14/24 06:59 Sodium Chloride (Nss) 1,000 mls @ 0 mls/hr IV .Q0M PRN PRN Reason: For Hemodialysis Use ONLY Stop: 11/17/24 06:59 Insulin Aspart (Insulin Aspart Per Unit Charge) 0 units SC AC [facility] Stop: 12/03/24 22:29 Last Admin: 11/12/24 17:00 Dose: 12 units Insulin Aspart (Insulin Aspart Per Unit Charge) 0 units SC [facility] Stop: 12/09/24 20:59 Last Admin: 11/11/24 20:47 Dose: Not Given Insulin Glargine (Lantus Per Unit Charge) 10 units SQ QAM [facility] Stop: 12/04/24 08:59 Last Admin: 11/12/24 08:47 Dose: 10 units Levothyroxine Sodium (Levothyroxine Sodium 100 Mcg Tablet) 100 mcg PO DAILYBB [facility] Stop: 12/04/24 06:29 Last Admin: 11/12/24 06:31 Dose: 100 mcg Melatonin (Melatonin 3 Mg Tab) 9 mg PO HS [facility] Stop: 12/04/24 20:59 Last Admin: 11/11/24 22:56 Dose: 9 mg Metoprolol Succinate (Metoprolol Succ 25mg Ext Rel Tab) 25 mg PO QAM [facility] Stop: 12/04/24 10:29 Last Admin: 11/12/24 08:57 Dose: 25 mg Midodrine (Midodrine Hcl 2.5 Mg Tab) 5 mg PO MoWeFr@0800,1000 PRN PRN Reason: for BP support due to HD Stop: 12/03/24 22:05 Last Admin: 11/12/24 08:55 Dose: 5 mg Miscellaneous (Carbohydrates For Hypoglycemia ) 15 - 30 gm PO UD PRN PRN Reason: Hypoglycemia Protocol Stop: 12/03/24 22:11 Last Admin: 11/09/24 01:35 Dose: 15 gm Multivitamins/Folic Acid/Vitamin C (Multivitamin Chewable Tab) 1 tab PO DAILY [facility] Stop: 12/04/24 08:59 Last Admin: 11/12/24 08:55 Dose: 1 tab Nitroglycerin (Nitroglycerin Sl 0.4 Mg/Tab Tab) 0.4 mg SL Q5M PRN PRN Reason: CHEST PAIN Stop: 12/03/24 23:01 Oxycodone HCl (Oxycodone Hcl Ir 5 Mg Tab (Immediate Release)) 5 mg PO Q4H PRN PRN Reason: Pain Stop: 11/19/24 01:48 Last Admin: 11/05/24 02:00 Dose: 5 mg Pantoprazole Sodium (Pantoprazole 40 Mg Tab) 40 mg PO QAM [facility] Stop: 12/04/24 08:59 Last Admin: 11/12/24 08:57 Dose: 40 mg Vitamin B Complex/Folic Acid (Nephrocaps) 1 cap PO DAILY [facility] Stop: 12/04/24 08:59 Last Admin: 11/12/24 08:57 Dose: 1 cap Vitamin D (Cholecalciferol 125 Mcg (5,000 Units) Tab) 125 mcg PO DAILY [facility] Stop: 12/04/24 08:59 Last Admin: 11/12/24 08:58 Dose: 125 mcg
[2024-11-13 00:25] LABS: Appearance Urine Cloudy (Clear); Bacteria Urine Automated 4+ (None Seen); Bilirubin Urine Negative (Negative); Blood Urine 2+ (Negative); Color Urine Dark Yellow; Epithelial Cell Urine Auto >20 /hpf (0-2); Glucose Urine UA 1+ (Negative); Ketones Urine Trace (Negative); Leukocyte Esterase Urine 3+ (Negative); Nitrite Urine Negative (Negative); Protein Urine 3+ (Negative); Specific Gravity Urine 1.015 (1.000-1.030); Urobilinogen Urine Negative (Negative); WBC Urine Automated >50 /hpf (0-5); pH Urine 6.5 (4.5-7.5)
[2024-11-13 03:17] VITALS: RESP 18
[2024-11-13] MEDS ORDERED: Nursing to Pharmacy Communication SCH (07:45)
[2024-11-13] MEDS: CALCIUM ACETATE 667 MG CAP/TAB PO SCH (11:36)
[2024-11-13 11:51] VITALS: BP 112/62; PULSE 78; TEMP 97.9; O2SAT 97
--- NOTE | 2024-11-13 12:09 | Discharge Summary ---
Date of Service November 13, 2024 Admission HPI Per Admitting Provider Pt is a 63-year-old female with past medical history significant for sick sinus syndrome s/p pacemaker placement with recent ICD upgrade in September of 2024, type 2 diabetes, diabetic polyneuropathy, end-stage renal disease on hemodialysis, dyslipidemia, hypothyroidism, diabetic gastroparesis, diabetic retinopathy, obstructive sleep apnea on CPAP, chronic diastolic CHF, pulmonary hypertension, hypertension, GERD, morbid obesity, status post gastric bypass, depression, history of endometrial cancer, CHIDI inhibitor intolerance, recurrent ventral incisional hernia who presents with multiple episodes of near syncope after dialysis today. History obtained from pt and in the room. Pt states that she had her pacemaker changed at [facility] recently and spent 9 days hospitalized. Since then has had no issues at home until today after dialysis she had multiple events of presyncopal symptoms and chest tightening but not pain. She denied SOB. States it feels like "it starts in my head" and that she knows when they are coming on. Pt with witnessed episode in the emergency room where she briefly lost consciousness before regaining it once more with episodes of emesis thereafter. She was evaluated at bedside by EP and her AICD was adjusted. She was transferred to the ICU for further monitoring. Admission Exam Per Admitting Provider General: Alert, oriented HEENT: clear conjunctiva, oropharynx dry Neuro: No gross deficits HEENT: NC/AT CV: RRR Resp: Breath sounds clear bilaterally, no increased effort of breathing Abdomen: Soft, nontender Extremities: No edema in lower extremities bilaterally. Principal Diagnosis Ventricular Tachycardia Presyncope Discharge Exam General: obese F in NAD, Alert, oriented HEENT: NC/AT, EOMI CV: RRR, + murmur Resp: Breath sounds clear bilaterally, no increased effort of breathing Abdomen: Soft, nontender, + obese Extremities: mild edema in lower extremities bilaterally. Skin: warm, dry Discharge Data Allergies Allergy/AdvReac Type Severity Reaction Status Date / Time CHIDI Inhibitors AdvReac Intermediate COUGH Verified 11/03/24 17:19 Consultations 11/03/24 17:35 Consult Cardiology Routine 11/03/24 19:55 ED Decision to Admit Stat 11/03/24 20:12 Consult Radiology Director Routine 11/03/24 21:59 Consult Nephrology Routine Hospital Course (1) Ventricular tachycardia: Plan 63-year-old female with past medical history significant for sick sinus syndrome s/p pacemaker placement with recent ICD upgrade in September of 2024, type 2 diabetes, diabetic polyneuropathy, end-stage renal disease on hemodialysis, dyslipidemia, hypothyroidism, diabetic gastroparesis, diabetic retinopathy, obstructive sleep apnea on CPAP, chronic diastolic CHF, pulmonary hypertension, hypertension, GERD, morbid obesity, status post gastric bypass, depression, history of endometrial cancer, CHIDI inhibitor intolerance, recurrent ventral incisional hernia who presents with multiple episodes of near syncope after dialysis today. Ventricular Tachycardia Presyncope Pt noting frequent episodes at home Multiple episodes in the ED, pt remained hemodynamically stable Cardiology consulted, appreciate recs -amiodarone drip-->has since transitioned to po amiodarone -doses of Lopressor and Magnesium given in the ED -s/p AICD adjustment by EP on admission on 11/03 and by [employer] on 11/08 -echo with EF 55-60%, mild , severe MR, mod MS, mild TR, mod pulm HTN -continue on metoprolol succinate 25mg daily, amiodarone 400mg BID Continue to monitor on telemetry Appreciate further cardiology recs 11/09-notified by respiratory that though pt's 2 step revealed she did not need oxygen for home use, she expressed concern about going home given how SOB she felt. She stated that this was similar to her prior discharge from [facility] where she was later told she would need oxygen. Pt agreeable to evaluation by PT/OT for a possible short rehab/SNF stay. Also seen by cardiology today and cardiology aware. Appreciate PT/OT recs 11/10 Pt interested in rehab/ [facility] - had PT/OT ramya today- will discuss with CM 11/12 plan to DC to [facility] - CM involved 11/13 Pt has changed her mind and would prefer to go home w/ HH - CM involved Chronic Anemia Hgb 9.7 on admission, currently 9.4 Continue to monitor H/H DMII Basal/bolus protocol for hyperglycemia ESRD on dialysis Follows with [facility] Nephrology consulted - had HD on (11/10), (11/11), 11/12. Also plan for outpt HD 4x a week, instead of 3x Continue to monitor Continue other home meds as ordered Total Time Total Time Spent Total Time Spent (In Minutes): 40 Discharge Plan Discharge Items Patient Disposition: Home - Home Health Services Reason For Visit: SYNCOPE Discharge Diagnosis: Ventricular Tachycardia Presyncope Activity: Per Instructions section Non-emergency contact: Primary Care Provider, Specialist and Decal Transferrer Call non-emergency contact if: you have any medication questions and your symptoms worsen Follow-up/Referrals: Yoanna Gomez CRNP [Nurse Practitioner] - (The office will call you with a follow up appointment. ) Luis Fernando Rojas MD [Primary Care Provider] - (Date & Time 11/18/2024 10:20 AM Provider: Luis Fernando Rojas MD [facility] ) Diet: Carb Consistent or DM2, Dialysis Renal and Heart Healthy Addtl Attending Provider Instructions: Follow up with your primary care doctor, hammer adjuster, drain technician. You were started on a new medication - Amiodarone - take 400 mg twice a day until 11/18/2024, then take 200 mg daily. You will be contacted about your appointment with cardiology. Take metoprolol 25 mg daily. Stop taking amlodipine. Pending Studies at Discharge: Yes Studies:: urine cultx Stand-Alone Forms: [employer] [facility] [employer], Smoking Cessation Medications and DC Order Prescriptions: New amiodarone 200 mg Tablet 200 mg PO UD Qty: 60 0RF Rx Instructions: Take 400mg twice a day until 11/18/2024, then take 200 mg daily metoprolol succinate 25 mg Tablet Extended Release 24 Hr 25 mg PO QAM Qty: 30 0RF Continued biotin 10 mg Tablet 10 mg PO DAILY albuterol sulfate 0.63 mg/3 mL Solution For Nebulization 0.63 mg INHALATION Q6H PRN (Reason: Wheezing) acetaminophen [Tylenol] 325 mg Tablet 650 mg PO Q6H PRN (Reason: PAIN/FEVER) pediatric multivitamin Tablet,Chewable 1 tab PO BID calcium carbonate-vitamin D3 [Calcium + D] 600 mg-5 mcg (200 unit) Tablet 1 tab PO BID Qty: 0 Rx Instructions: CONCENTRATION 600 MG/20 MCG. tramadol 50 mg Tablet 50 mg PO Q4H PRN (Reason: Pain) nitroglycerin [Nitrostat] 0.4 mg Tablet, Sublingual 0.4 mg sublingual DIRECTED PRN (Reason: CHEST PAIN) gabapentin 300 mg Capsule 300 mg PO HS omeprazole 20 mg Capsule,Delayed Release(Dr/Ec) 20 mg PO DAILY colestipol 1 gram Tablet 2 g PO QDL PRN (Reason: Diarrhea) Rx Instructions: take 2 tablets by mouth at noon daily if needed for diarrhea diclofenac sodium 1 % Gel 2 g TOPICAL TID PRN (Reason: Pain) cholecalciferol (vitamin D3) [Vitamin D3] 125 mcg (5,000 unit) Tablet 125 mcg PO DAILY atorvastatin 40 mg tablet 40 mg PO QPM levothyroxine 100 mcg tablet 100 mcg PO DAILYBB insulin glargine [Lantus Solostar U-100 Insulin] 100 unit/mL (3 mL) insulin pen 10 unit SUBCUT QAM ProRenal 8 mg iron-800 mcg-1,000 unit tablet 1 tab PO DAILY citalopram 40 mg tablet 20 mg PO QAM 30 Days Qty: 30 0RF cyanocobalamin (vitamin B-12) 1,000 mcg/mL Solution 1,000 mcg IM Q90D 30 Days Qty: 1 0RF aspirin 81 mg Tablet,Chewable 81 mg PO HS 30 Days Qty: 30 0RF melatonin 10 mg Tablet 10 mg PO HS 30 Days Qty: 30 0RF calcium acetate 667 mg Tablet 2,001 mg PO TIDM 30 Days Qty: 90 0RF Rx Instructions: Take 3 capsules by mouth with each meal and 2 capsules by mouth with each snack insulin lispro 100 unit/mL solution See Rx Instructions .ROUTE .COMPLEX Rx Instructions: TAKES 12 UNITS WITH BREAKFAST AND LUNCH, THEN 14 UNITS WITH SUPPER. midodrine 5 mg tablet 5 mg PO DIRECTED Rx Instructions: TAKE 5mg BY MOUTH ONCE DAILY NEEDED 30 MINUTES PRIOR TO DIALYSIS AND 5mg JAIL THROUGH. Mon/Wed/Fri Discontinued amlodipine 5 mg tablet 5 mg PO QAM 30 Days Qty: 30 0RF Discharge Orders: Discharge Order (Routine); Ordered 11/13/24 Ordered By: Álvaro Red Admission Data Admit Date/Time: 11/03/24 20:12 Attending Provider: Álvaro Red Admit Provider: Rosa Rivera Primary Care Provider: Luis Fernando Rojas Other Providers: Ulises Stevenson; Rosa Rivera; Jean Claude Oswald; Clare Donaldson; [facility]
== END 2024-11-13 13:55 | disposition home health service (06) | DRG 308 ==
LOC: ED 15:42 → 1E 20:12 → SUATTDRO 20:12 → 1E 20:35 → 2S 11-08 16:09

== ENCOUNTER 2025-07-07 17:28 | Inpatient (IN) ==
[2025-07-07 18:30] LABS: Hematocrit (blood only) 30.8 % (37.0-47.0); Hemoglobin 9.8 g/dL (12.0-16.0); Mean Corpuscular Hemoglobin 31.7 pg (25.0-34.0); Mean Corpuscular Volume 99.7 fL (80.0-100.0); Platelet Count 148 K/uL (130-400); RDW Standard Deviation 57.2 fL (36.4-46.3); Red Blood Count 3.09 M/uL (4.20-5.40); White Blood Count 8.71 K/ul (4.8-10.8)
[2025-07-07 19:04] LABS: INR 1.2 (0.9-1.1); Partial Thromboplastin Time 33 Seconds (21-31); Prothrombin Time 12.8 Seconds (9.0-12.0)
[2025-07-07 19:14] LABS: Alanine Aminotransferase 23.0 U/L (7-52); Albumin Globulin Ratio 1.3 (0.9-2); Albumin Level 3.5 gm/dl (3.4-5.0); Alkaline Phosphatase 151.0 U/L (34-104); Anion Gap 17.0 (3-11); Bilirubin,Total 0.5 mg/dl (0.2-1.0); Blood Urea Nitrogen 99.0 mg/dl (6-23); Calcium 8.2 mg/dl (8.6-10.3); Carbon Dioxide 16.0 mmol/L (21-32); Chloride 98.0 mmol/L (98-107); Creatinine Clr Calc Pharmacy 6.2 ml/min; Globulin 2.8 gm/dl (2.5-4.0); Glucose 471.0 mg/dl (70-99(Fasting)); Potassium 4.9 mmol/L (3.5-5.1); Sodium 131.0 mmol/L (136-145); Total Protein 6.3 gm/dl (6.0-8.3)
--- NOTE | 2025-07-07 19:21 | Emergency Department Note ---
History of Present Illness General Chief complaint: GI Assessment Stated complaint: BOWEL MOVEMENTS WITH BLOOD IN IT Time Seen by Provider: 07/07/25 18:14 Source: patient Mode of arrival: ambulatory Limitations: no limitations History of Present Illness Maximum Pain Intensity: 4 Patient is a 63-year-old female with past medical history significant for sick sinus syndrome status post pacemaker placement with recent ICD upgrade in September 2024, type 2 diabetes, diabetic polyneuropathy, end-stage renal disease on dialysis, dyslipidemia, hypothyroidism, diabetic gastroparesis, diabetic retinopathy, MINISTERIO, CHF, pulmonary hypertension who presents today for multiple episodes of bright red blood per rectum. She was on the way home from [facility] after she had a fistulogram done. She started to feel cramping in her abdomen and had to stop at a gas station. She had 3 total episodes of bright red blood per rectum with clots. She states her cramping has improved and is only notable when she is about to have a bowel movement. She has no history of GI bleeding in the past. She is on Eliquis at baseline. Had a colonoscopy 3 weeks prior notable for internal hemorrhoids and polyps according to the patient. She has had some red tinge stools since then. Home Medications Medication Instructions Recorded Confirmed Type insulin lispro 100 unit/mL See Rx Instructions .Route .COMPLEX 07/07/24 07/07/25 History subcutaneous solution acetaminophen 325 mg tablet 650 mg PO Q6H PRN PAIN/FEVER 10/04/24 07/07/25 History (Tylenol) atorvastatin 40 mg tablet 40 mg PO QAM 10/04/24 07/07/25 History biotin 10 mg tablet 10 mg PO DAILY 10/04/24 07/07/25 History cholecalciferol (vitamin D3) 125 125 mcg PO DAILY 10/04/24 07/07/25 History mcg (5,000 unit) tablet (Vitamin D3) colestipol 1 gram tablet 4 g PO .DAILY@1500 10/04/24 07/07/25 History gabapentin 300 mg capsule 300 mg PO BID 10/04/24 07/07/25 History insulin glargine 100 unit/mL (3 10 unit subcut QAM 10/04/24 07/07/25 History mL) subcutaneous pen (Lantus Solostar U-100 Insulin) levothyroxine 100 mcg tablet 100 mcg PO DAILYBB 10/04/24 07/07/25 History omeprazole 20 mg capsule,delayed 20 mg PO DAILY 10/04/24 07/07/25 History release pediatric multivitamin 1 tab PO BID 10/04/24 07/07/25 History midodrine 5 mg tablet 5 mg PO DIRECTED 11/03/24 07/07/25 History metoprolol succinate 25 mg 25 mg PO QAM #30 tabs 11/13/24 07/07/25 Rx tablet,extended release 24 hr Magic Swizzle 15 ml mucous membrane TID 07/07/25 07/07/25 History albuterol sulfate 2.5 mg/3 mL 2.5 mg inhalation DIRECTED PRN 07/07/25 07/07/25 History (0.083 %) solution for nebulization Shortness Of Breath Or Wheezing amiodarone 200 mg tablet 200 mg PO QAM 07/07/25 07/07/25 History apixaban 5 mg tablet (Eliquis) 5 mg PO BID 07/07/25 07/07/25 History buspirone 10 mg tablet 10 mg PO BID 07/07/25 07/07/25 History citalopram 20 mg tablet 20 mg PO DAILY 07/07/25 07/07/25 History ktbgde-vmurhfvc-gfdvac(pork)24,000-76,000-120,000 1 cap PO QID 07/07/25 07/07/25 History unit capsule,del rel (Creon) oxycodone 5 mg tablet 5 mg PO Q6H PRN Severe Pain (Scale 07/07/25 07/07/25 History Score 7-10) sevelamer carbonate 800 mg tablet See Rx Instructions .Route .COMPLEX 07/07/25 07/07/25 History (Renvela) Allergies Allergy/AdvReac Type Severity Reaction Status Date / Time CHIDI Inhibitors AdvReac Intermediate COUGH Verified 07/07/25 23:26 Past Med/Surg History Problem List (Updated 12/14/24 @ 00:05 by Background Danorman) GI (gastrointestinal bleed) (Acute) Ventricular tachycardia (Acute) Mitral regurgitation and mitral stenosis Aortic stenosis, mild Mild mitral stenosis Abnormal urine findings Ventricular tachycardia Dialysis patient (Acute) Dysrhythmia (Acute) Rhinovirus infection (Acute) Syncope (Acute) Hypertension Rhinovirus infection (Acute) Hypoxia (Acute) Hypo-osmolar hyponatremia Insulin-requiring or dependent type II diabetes mellitus Acute on chronic heart failure with preserved ejection fraction Volume overload Acute bronchitis due to Rhinovirus Acute hypoxic respiratory failure Hypotension of hemodialysis Hyperkalemia Fracture of right tibial plateau Closed right tibial fracture (Acute) ESRD (end stage renal disease) on dialysis (Acute) Fall (Acute) Colon polyps S/P knee surgery (Chronic) DVT prophylaxis Anxiety Anemia Upper GI bleed (Acute) Hematemesis with nausea (Acute) Encounter for pre-operative examination Gastric ulcer COVID-19 (Acute) Acute dyspnea (Acute) Bilateral leg weakness (Acute) Anemia (Acute) Ambulatory dysfunction (Acute) Back pain (Acute) Tremor Obesity ESRD (end stage renal disease) on dialysis (Acute) Mon/Fri/Fri at [facility] in [place]. Pacemaker SSS Medtr[employer] follows with dr rosalie Wilks diastolic CHF (congestive heart failure) Depression Hypothyroidism SSS (sick sinus syndrome) Pt admitted for elective pacemaker due to SSS. She underwent procedure without any complications. Monitored over night and discharged home. MINISTERIO on CPAP (Chronic) MDD (major depressive disorder) (Chronic) HLD (hyperlipidemia) (Chronic) HTN (hypertension) (Chronic) Diabetes mellitus, type II (Chronic) IDDM H/O esophagogastroduodenoscopy (Chronic) Medical History ESRD (end stage renal disease) on dialysis Peripheral neuropathy bilateral legs/feet Anxiety History of anesthesia reaction woke up during hysterectomy in 1995 Hiatal hernia Osteoarthritis Degenerative disc disease Chronic back pain Post traumatic stress disorder History of anesthesia reaction when had port inserted needed more medication and could feel everything GERD (gastroesophageal reflux disease) Surgical History History of colonoscopy S/P left knee arthroscopy S/P right knee arthroscopy H/O radical excision of skin lesion melanoma S/P cardiac pacemaker procedure medtronic device, last checked ~2 months ago. Follows with Dr Stevenson S/P arteriovenous (AV) fistula creation Right arm History of vitrectomy History of cataract surgery bilateral History of adenoidectomy History of tonsillectomy H/O umbilical hernia repair open (~November 2022 [facility]) --> went to [facility] for rehab therapy for about 2 weeks. S/P dialysis catheter insertion right side of chest (since removed) S/P [place]-BSO H/O hernia repair Hx of gastric bypass History of cholecystectomy Hx of cardiac cath "2012, negative for CAD " Family History Other Colonic polyp GERD (gastroesophageal reflux disease) No family history of adverse response to anesthesia Social History Smoking Status: Never smoker Second Hand Exposure: No; Do You Dip or Chew Tobacco: No; Hx Alcohol Use: No Hx Substance Use: No Preferred Language: Greenlandic Communication Ability: Effective Senior It Project Manager Required: No Beliefs That Will Affect Care: None marital status: Current Living Situation: Spouse Current Living Situation Comment: lives with Feels Safe at Home: Yes Assistive Devices: Cane, CPAP, Nebulizer and Walker Review of Systems Review of systems negative outside of positive findings mentioned in HPI. Physical Exam Vital Signs Vital Signs - 24 hr 07/07/25 17:39 07/07/25 18:57 07/07/25 18:58 Temperature 36.4 C L 36.7 C Temperature Source Temporal Artery Scan Oral Pulse Rate 80 76 Pulse Rate [Right Finger] 81 Pulse Rate from SpO2 Sensor Pulse Rhythm Regular Pulse Rhythm [Right Finger] Regular Pulse Strength [Right Finger] Normal Respiratory Rate 18 18 18 Respiratory Effort / Characteristics Non-Labored Respiratory Depth Normal Respiratory Pattern Regular Blood Pressure 123/70 Blood Pressure [Left Arm] 92/56 L Blood Pressure Mean 87 Blood Pressure Mean [Left Arm] 68 Blood Pressure Position [Left Arm] Lying Pulse Oximetry 97 94 98 Oxygen Delivery Method Room Air Room Air Sepsis Recent Fever Within 48 Hours No Sepsis New/Unexplained Change in Mental Status No Sepsis Action Taken by Nursing No Action Required 07/07/25 19:00 07/07/25 19:08 07/07/25 19:12 Temperature Temperature Source Pulse Rate 81 75 Pulse Rate [Right Finger] Pulse Rate from SpO2 Sensor 75 Pulse Rhythm Pulse Rhythm [Right Finger] Pulse Strength [Right Finger] Respiratory Rate 20 Respiratory Effort / Characteristics Respiratory Depth Respiratory Pattern Blood Pressure 92/56 L 92/56 L Blood Pressure [Left Arm] Blood Pressure Mean 73 68 Blood Pressure Mean [Left Arm] Blood Pressure Position [Left Arm] Pulse Oximetry 94 Oxygen Delivery Method Sepsis Recent Fever Within 48 Hours Sepsis New/Unexplained Change in Mental Status Sepsis Action Taken by Nursing 07/07/25 19:31 07/07/25 19:42 07/07/25 19:51 Temperature Temperature Source Pulse Rate 75 75 Pulse Rate [Right Finger] Pulse Rate from SpO2 Sensor 75 75 Pulse Rhythm Pulse Rhythm [Right Finger] Pulse Strength [Right Finger] Respiratory Rate 21 20 Respiratory Effort / Characteristics Respiratory Depth Respiratory Pattern Blood Pressure 106/51 L 106/51 L Blood Pressure [Left Arm] Blood Pressure Mean 84 69 Blood Pressure Mean [Left Arm] Blood Pressure Position [Left Arm] Pulse Oximetry 92 93 Oxygen Delivery Method Sepsis Recent Fever Within 48 Hours Sepsis New/Unexplained Change in Mental Status Sepsis Action Taken by Nursing 07/07/25 20:00 07/07/25 20:00 07/07/25 20:00 Temperature Temperature Source Pulse Rate 75 Pulse Rate [Right Finger] Pulse Rate from SpO2 Sensor 75 Pulse Rhythm Pulse Rhythm [Right Finger] Pulse Strength [Right Finger] Respiratory Rate 13 Respiratory Effort / Characteristics Respiratory Depth Respiratory Pattern Blood Pressure 106/73 106/73 Blood Pressure [Left Arm] Blood Pressure Mean 85 85 Blood Pressure Mean [Left Arm] Blood Pressure Position [Left Arm] Pulse Oximetry 95 Oxygen Delivery Method Sepsis Recent Fever Within 48 Hours Sepsis New/Unexplained Change in Mental Status Sepsis Action Taken by Nursing 07/07/25 20:00 07/07/25 20:00 07/07/25 20:00 Temperature Temperature Source Pulse Rate Pulse Rate [Right Finger] Pulse Rate from SpO2 Sensor Pulse Rhythm Pulse Rhythm [Right Finger] Pulse Strength [Right Finger] Respiratory Rate Respiratory Effort / Characteristics Respiratory Depth Respiratory Pattern Blood Pressure 106/73 106/73 106/73 Blood Pressure [Left Arm] Blood Pressure Mean 85 85 85 Blood Pressure Mean [Left Arm] Blood Pressure Position [Left Arm] Pulse Oximetry Oxygen Delivery Method Sepsis Recent Fever Within 48 Hours Sepsis New/Unexplained Change in Mental Status Sepsis Action Taken by Nursing 07/07/25 20:12 07/07/25 20:21 07/07/25 20:30 Temperature Temperature Source Pulse Rate 75 75 75 Pulse Rate [Right Finger] Pulse Rate from SpO2 Sensor 75 75 75 Pulse Rhythm Pulse Rhythm [Right Finger] Pulse Strength [Right Finger] Respiratory Rate 15 17 25 H Respiratory Effort / Characteristics Respiratory Depth Respiratory Pattern Blood Pressure Blood Pressure [Left Arm] Blood Pressure Mean Blood Pressure Mean [Left Arm] Blood Pressure Position [Left Arm] Pulse Oximetry 95 93 95 Oxygen Delivery Method Sepsis Recent Fever Within 48 Hours Sepsis New/Unexplained Change in Mental Status Sepsis Action Taken by Nursing 07/07/25 20:30 07/07/25 20:30 07/07/25 20:30 Temperature Temperature Source Pulse Rate Pulse Rate [Right Finger] Pulse Rate from SpO2 Sensor Pulse Rhythm Pulse Rhythm [Right Finger] Pulse Strength [Right Finger] Respiratory Rate Respiratory Effort / Characteristics Respiratory Depth Respiratory Pattern Blood Pressure 122/66 122/66 122/66 Blood Pressure [Left Arm] Blood Pressure Mean 84 84 84 Blood Pressure Mean [Left Arm] Blood Pressure Position [Left Arm] Pulse Oximetry Oxygen Delivery Method Sepsis Recent Fever Within 48 Hours Sepsis New/Unexplained Change in Mental Status Sepsis Action Taken by Nursing 07/07/25 20:30 07/07/25 20:30 07/07/25 21:04 Temperature Temperature Source Pulse Rate Pulse Rate [Right Finger] Pulse Rate from SpO2 Sensor Pulse Rhythm Pulse Rhythm [Right Finger] Pulse Strength [Right Finger] Respiratory Rate Respiratory Effort / Characteristics Respiratory Depth Respiratory Pattern Blood Pressure 122/66 122/66 93/60 L Blood Pressure [Left Arm] Blood Pressure Mean 84 84 71 Blood Pressure Mean [Left Arm] Blood Pressure Position [Left Arm] Pulse Oximetry Oxygen Delivery Method Sepsis Recent Fever Within 48 Hours Sepsis New/Unexplained Change in Mental Status Sepsis Action Taken by Nursing 07/07/25 21:04 07/07/25 21:31 07/07/25 21:33 Temperature Temperature Source Pulse Rate 75 Pulse Rate [Right Finger] Pulse Rate from SpO2 Sensor 75 Pulse Rhythm Pulse Rhythm [Right Finger] Pulse Strength [Right Finger] Respiratory Rate 20 Respiratory Effort / Characteristics Respiratory Depth Respiratory Pattern Blood Pressure 93/60 L 104/77 Blood Pressure [Left Arm] Blood Pressure Mean 71 82 Blood Pressure Mean [Left Arm] Blood Pressure Position [Left Arm] Pulse Oximetry 99 Oxygen Delivery Method Sepsis Recent Fever Within 48 Hours Sepsis New/Unexplained Change in Mental Status Sepsis Action Taken by Nursing 07/07/25 22:12 07/07/25 22:15 07/07/25 22:15 Temperature Temperature Source Pulse Rate 91 H Pulse Rate [Right Finger] Pulse Rate from SpO2 Sensor 86 Pulse Rhythm Pulse Rhythm [Right Finger] Pulse Strength [Right Finger] Respiratory Rate 23 Respiratory Effort / Characteristics Respiratory Depth Respiratory Pattern Blood Pressure 117/74 117/74 Blood Pressure [Left Arm] Blood Pressure Mean 97 97 Blood Pressure Mean [Left Arm] Blood Pressure Position [Left Arm] Pulse Oximetry 91 Oxygen Delivery Method Sepsis Recent Fever Within 48 Hours Sepsis New/Unexplained Change in Mental Status Sepsis Action Taken by Nursing 07/07/25 22:15 07/07/25 22:15 07/07/25 22:15 Temperature Temperature Source Pulse Rate Pulse Rate [Right Finger] Pulse Rate from SpO2 Sensor Pulse Rhythm Pulse Rhythm [Right Finger] Pulse Strength [Right Finger] Respiratory Rate Respiratory Effort / Characteristics Respiratory Depth Respiratory Pattern Blood Pressure 117/74 117/74 117/74 Blood Pressure [Left Arm] Blood Pressure Mean 97 97 97 Blood Pressure Mean [Left Arm] Blood Pressure Position [Left Arm] Pulse Oximetry Oxygen Delivery Method Sepsis Recent Fever Within 48 Hours Sepsis New/Unexplained Change in Mental Status Sepsis Action Taken by Nursing 07/07/25 22:15 07/07/25 22:31 07/07/25 22:31 Temperature Temperature Source Pulse Rate 80 Pulse Rate [Right Finger] Pulse Rate from SpO2 Sensor 80 Pulse Rhythm Pulse Rhythm [Right Finger] Pulse Strength [Right Finger] Respiratory Rate 24 Respiratory Effort / Characteristics Respiratory Depth Respiratory Pattern Blood Pressure 96/63 L 96/63 L Blood Pressure [Left Arm] Blood Pressure Mean 72 72 Blood Pressure Mean [Left Arm] Blood Pressure Position [Left Arm] Pulse Oximetry 96 Oxygen Delivery Method Sepsis Recent Fever Within 48 Hours Sepsis New/Unexplained Change in Mental Status Sepsis Action Taken by Nursing 07/07/25 22:31 07/07/25 22:31 07/07/25 22:31 Temperature Temperature Source Pulse Rate Pulse Rate [Right Finger] Pulse Rate from SpO2 Sensor Pulse Rhythm Pulse Rhythm [Right Finger] Pulse Strength [Right Finger] Respiratory Rate Respiratory Effort / Characteristics Respiratory Depth Respiratory Pattern Blood Pressure 96/63 L 96/63 L 96/63 L Blood Pressure [Left Arm] Blood Pressure Mean 72 72 72 Blood Pressure Mean [Left Arm] Blood Pressure Position [Left Arm] Pulse Oximetry Oxygen Delivery Method Sepsis Recent Fever Within 48 Hours Sepsis New/Unexplained Change in Mental Status Sepsis Action Taken by Nursing 07/07/25 22:42 07/07/25 22:51 07/07/25 23:00 Temperature Temperature Source Pulse Rate 75 75 75 Pulse Rate [Right Finger] Pulse Rate from SpO2 Sensor 75 75 75 Pulse Rhythm Pulse Rhythm [Right Finger] Pulse Strength [Right Finger] Respiratory Rate 11 L 12 11 L Respiratory Effort / Characteristics Respiratory Depth Respiratory Pattern Blood Pressure Blood Pressure [Left Arm] Blood Pressure Mean Blood Pressure Mean [Left Arm] Blood Pressure Position [Left Arm] Pulse Oximetry 95 95 93 Oxygen Delivery Method Sepsis Recent Fever Within 48 Hours Sepsis New/Unexplained Change in Mental Status Sepsis Action Taken by Nursing 07/07/25 23:01 07/07/25 23:01 07/07/25 23:01 Temperature Temperature Source Pulse Rate Pulse Rate [Right Finger] Pulse Rate from SpO2 Sensor Pulse Rhythm Pulse Rhythm [Right Finger] Pulse Strength [Right Finger] Respiratory Rate Respiratory Effort / Characteristics Respiratory Depth Respiratory Pattern Blood Pressure 95/74 L 95/74 L 95/74 L Blood Pressure [Left Arm] Blood Pressure Mean 79 79 79 Blood Pressure Mean [Left Arm] Blood Pressure Position [Left Arm] Pulse Oximetry Oxygen Delivery Method Sepsis Recent Fever Within 48 Hours Sepsis New/Unexplained Change in Mental Status Sepsis Action Taken by Nursing 07/07/25 23:01 07/07/25 23:01 07/07/25 23:29 Temperature Temperature Source Pulse Rate 75 Pulse Rate [Right Finger] Pulse Rate from SpO2 Sensor Pulse Rhythm Pulse Rhythm [Right Finger] Pulse Strength [Right Finger] Respiratory Rate Respiratory Effort / Characteristics Respiratory Depth Respiratory Pattern Blood Pressure 95/74 L 95/74 L Blood Pressure [Left Arm] Blood Pressure Mean 79 79 Blood Pressure Mean [Left Arm] Blood Pressure Position [Left Arm] Pulse Oximetry Oxygen Delivery Method Sepsis Recent Fever Within 48 Hours Sepsis New/Unexplained Change in Mental Status Sepsis Action Taken by Nursing See below Constitutional WD/WN, vitals as above Respiratory normal respiratory effort, lungs clear to auscultation Cardiovascular RRR, no murmur, no edema Gastrointestinal (Abdomen) normal bowel sounds, soft, nontender, no hepatosplenomegaly Hemmocult positive Course Administered Medications Discontinued Medications Insulin Human Regular (Novolin-R Insulin Per Unit Charge) 15 units IV NOW STA Stop: 07/07/25 19:18 Last Admin: 07/07/25 19:53 Dose: 15 units Documented By: asm Co-signed By: SUZE Ioversol (Optiray 320 100ml) 93 ml IV ONCE ONE Stop: 07/07/25 21:45 Last Admin: 07/07/25 21:45 Dose: 93 ml Documented By: ALEAH Medical Decision Making Differential Diagnosis DDx includes but not limited to: Diverticulosis, neoplasm, colonic polyps, ischemic colitis, IBD, infectious colitis, AVM, postprocedural bleeding, hemorrhoids, anal fissure Medical Records Attestation: I reviewed the patient's medical records. Home Medications Current Medication List: was personally reviewed by me Laboratory Data Attestation: I reviewed the patient's lab results. 07/07/25 18:15 07/07/25 18:15 Lab Results 07/07/25 07/07/25 07/07/25 Range/Units 17:59 18:15 20:55 WBC 8.71 (4.8-10.8) K/ul RBC 3.09 L (4.20-5.40) M/uL Hgb 9.8 L (12.0-16.0) g/dL Hct 30.8 L (37.0-47.0) % MCV 99.7 (80.0-100.0) fL MCH 31.7 (25.0-34.0) pg MCHC 31.8 L (32.0-36.0) g/dL RDW Std Deviation 57.2 H (36.4-46.3) fL RDW Coeff of Leatha 15.9 H (11.5-14.5) % Plt Count 148 (130-400) K/uL MPV 11.4 (9.4-12.4) fL PT 12.8 H (9.0-12.0) Seconds INR 1.2 H (0.9-1.1) APTT 33 H (21-31) Seconds PTT Ratio 1.2 Sodium 131 L (136-145) mmol/L Potassium 4.9 (3.5-5.1) mmol/L Chloride 98 (98-107) mmol/L Carbon Dioxide 16 L (21-32) mmol/L Anion Gap 17 H (3-11) BUN 99 H (6-23) mg/dl Creatinine 10.27 H* (0.6-1.2) mg/dl Est Cr Clr Drug Dosing 6.2 ml/min eGFR 3.80 BUN/Creatinine Ratio 9.6 L (10-20) Glucose 471 H* (70-99(Fasting)) mg/dl POC Glucose 276 H (70-99) mg/dl Calcium 8.2 L (8.6-10.3) mg/dl Total Bilirubin 0.5 (0.2-1.0) mg/dl AST 29 (13-39) U/L ALT 23 (7-52) U/L Alkaline Phosphatase 151 H (34-104) U/L Troponin I High Sens 17.1 H (0-14) pg/ml Total Protein 6.3 (6.0-8.3) gm/dl Albumin 3.5 (3.4-5.0) gm/dl Globulin 2.8 (2.5-4.0) gm/dl Albumin/Globulin Ratio 1.3 (0.9-2) POC Stool Occult Blood Positive A (Negative) Blood Type AB Positive Antibody Screen NEGATIVE Imaging Data Radiologist's Impression: Abdomen/Pelvis CT 07/07/25 19:06 Exam(s): CT ABDOMEN + PELVIS With Contrast IV Amt: 93ml optiray 320 EXAM: CT Abdomen and Pelvis With Intravenous Contrast CLINICAL HISTORY: Reason for exam: GI bleed protocol. TECHNIQUE: Axial computed tomography images of the abdomen and pelvis with intravenous contrast. CTDI is 27.22 mGy and DLP is 1409.92 mGy-cm. Automated exposure control was utilized for the study. A dose lowering technique was utilized adhering to the principles of ALARA. CONTRAST: Patient received 93ml optiray 320 of IV contrast COMPARISON: CT abdomen/pelvis on 04/24/2021 FINDINGS: Lung bases: Unremarkable. No mass. No consolidation. Pleural space: Trace qmfws-ywnbrgu-offg-left pleural effusions. ABDOMEN: Liver: Hepatic steatosis. Hepatomegaly. Gallbladder and bile ducts: Prior cholecystectomy. No ductal dilation. Pancreas: Atrophy of the pancreas. No ductal dilation. Spleen: Unremarkable. No splenomegaly. Adrenals: Unremarkable. No mass. Kidneys and ureters: Atrophy of the kidneys. Bilateral perinephric fat stranding. 8 mm stone in the left renal pelvis. Nonobstructing bilateral renal stones. No significant hydronephrosis. Right renal cysts. No further follow-up necessary. Small hypodensities in the left kidney are too small to definitively characterize. Stomach and bowel: Gastric bypass changes. Evaluation of the stomach is limited by underdistention. Diverticulosis without evidence of diverticulitis. No small bowel obstruction. No evidence for active GI bleed. PELVIS: Appendix: Normal appendix. Bladder: Underdistended bladder limits evaluation. Please correlate with urinalysis if concerned for cystitis. Reproductive: Prior hysterectomy. ABDOMEN and PELVIS: Intraperitoneal space: Small amount of ascites. No free air. Bones/joints: Probable hemangioma in the T12 vertebral body. Degenerative changes of the spine. Grade 1 anterolisthesis of L4 on L5. No acute fracture. No dislocation. Soft tissues: Body wall edema. Small fat containing left inguinal hernia. Vasculature: Phleboliths in the pelvis. No abdominal aortic aneurysm. Lymph nodes: Unremarkable. No enlarged lymph nodes. Tubes, lines and devices: Pacer wires partially visualized in the heart. IMPRESSION: 1. No evidence for active GI bleed. 2. Body wall edema. 3. Small amount of ascites. 4. Underdistended bladder limits evaluation. Please correlate with urinalysis if concerned for cystitis. 5. Trace vdfwx-exwqasd-hzpe-left pleural effusions. 6. 8 mm stone in the left renal pelvis. Nonobstructing bilateral renal stones. No significant hydronephrosis. Electronically signed by: Floridalma Ervin M.D. 07/07/25 22:32 PM Chest X-Ray 07/07/25 20:50 Exam(s): XR CXR 1 VIEW EXAM: XR Chest, 1 View CLINICAL HISTORY: Reason for exam: power-port verification. TECHNIQUE: Frontal view of the chest. COMPARISON: None FINDINGS: Hardware: Right-sided Port-A-Cath terminates near the cavoatrial junction. Lungs/pleura: Prominent lung markings and hazy opacities. No pleural effusion or pneumothorax. Heart/mediastinum: Enlargement of the cardiac silhouette. Left-sided pacemaker/AICD. Atherosclerotic changes in the aorta. Soft tissues: Unremarkable. Bones: No acute fracture. Upper abdomen: Normal. IMPRESSION: 1. Right-sided Port-A-Cath terminates near the cavoatrial junction. 2. Prominent lung markings and hazy opacities may be secondary to technique versus pulmonary vasculature congestion/edema. Electronically signed by: Floridalma Ervin M.D. 07/07/25 22:40 PM Blood Pressure Blood Pressure Findings: Normal blood pressure MDM Narrative Patient is a 64-year-old female presents with several episodes of bright red blood per rectum. Hemodynamically stable on arrival. No active significant GI bleeding. She is on Eliquis at baseline. Hemoglobin is 9.8 which is stable from prior on 11/25/2024. CT of the abdomen and pelvis was ordered based on GI protocol. Patient is a dialysis patient and IV contrast is necessary for diagnostic assessment of possible GI bleed. Not concern for further contrast induced nephrotoxicity. CT scan shows no active GI bleeding or source of patient's GI bleed today. No other concerning findings on CT imaging at this time. Patient remained stable here in the ED. Will be admitted for serial hemoglobins and further management of likely lower GI bleed. Hemoccult positive here today. [place] score of 20. Stable for admission to hospitalist service. Impression & Plan GI (gastrointestinal bleed) Discharge Plan Visit Data Chief Complaint: GI Assessment Stated Complaint: BOWEL MOVEMENTS WITH BLOOD IN IT ED Provider: Jean Claude Patel Discharge Problem: GI (gastrointestinal bleed) Patient Disposition: Admitted As Inpatient Condition: Good Forms Stand Alone Forms: My [facility] [employer] Prescriptions Prescriptions: No Action biotin 10 mg Tablet 10 mg PO DAILY acetaminophen [Tylenol] 325 mg Tablet 650 mg PO Q6H PRN (Reason: PAIN/FEVER) pediatric multivitamin Tablet,Chewable 1 tab PO BID gabapentin 300 mg Capsule 300 mg PO BID omeprazole 20 mg Capsule,Delayed Release(Dr/Ec) 20 mg PO DAILY colestipol 1 gram Tablet 4 g PO .DAILY@1500 cholecalciferol (vitamin D3) [Vitamin D3] 125 mcg (5,000 unit) Tablet 125 mcg PO DAILY atorvastatin 40 mg tablet 40 mg PO QAM levothyroxine 100 mcg tablet 100 mcg PO DAILYBB insulin glargine [Lantus Solostar U-100 Insulin] 100 unit/mL (3 mL) insulin pen 10 unit SUBCUT QAM insulin lispro 100 unit/mL solution See Rx Instructions .ROUTE .COMPLEX Rx Instructions: TAKES 12 UNITS WITH BREAKFAST AND LUNCH, THEN 16 UNITS WITH SUPPER. PLUS SLIDING SCALE IF NEEDED. midodrine 5 mg tablet 5 mg PO DIRECTED Rx Instructions: TAKE 5mg BY MOUTH ONCE DAILY NEEDED 30 MINUTES PRIOR TO DIALYSIS AND 5mg SENIOR LIVING THROUGH. Mon/Wed/Fri metoprolol succinate 25 mg Tablet Extended Release 24 Hr 25 mg PO QAM Qty: 30 0RF albuterol sulfate 2.5 mg /3 mL (0.083 %) Solution For Nebulization 2.5 mg INHALATION DIRECTED PRN (Reason: Shortness Of Breath Or Wheezing) citalopram 20 mg Tablet 20 mg PO DAILY buspirone 10 mg tablet 10 mg PO BID oxycodone 5 mg Tablet 5 mg PO Q6H PRN (Reason: Severe Pain (Scale Score 7-10)) sevelamer carbonate [Renvela] 800 mg Tablet See Rx Instructions .ROUTE .COMPLEX Rx Instructions: TAKES 2,400 MG WITH BREAKFAST, THEN 3,200 MG WITH SUPPER, TAKES 1,600 MG WITH SNACKS. Creon 24,000-76,000 -120,000 unit Capsule,Delayed Release(Dr/Ec) 1 cap PO QID Rx Instructions: administer with meals and/or snacks Eliquis 5 mg Tablet 5 mg PO BID Magic Swizzle 15 ml mucous membrane TID amiodarone 200 mg tablet 200 mg PO QAM Referrals Referrals: Luis Fernando Rojas MD [Primary Care Provider] -
[2025-07-07] MEDS: NovoLIN-R INSULIN PER UNIT CHARGE IV STA (19:53)
[2025-07-07] MEDS: OPTIRAY 320 100ml IV ONE (21:45)
--- NOTE | 2025-07-07 22:33 | CT Scan Report ---
Exam(s): CT ABDOMEN + PELVIS With Contrast IV Amt: 93ml optiray 320 EXAM: CT Abdomen and Pelvis With Intravenous Contrast CLINICAL HISTORY: Reason for exam: GI bleed protocol. TECHNIQUE: Axial computed tomography images of the abdomen and pelvis with intravenous contrast. CTDI is 27.22 mGy and DLP is 1409.92 mGy-cm. Automated exposure control was utilized for the study. A dose lowering technique was utilized adhering to the principles of ALARA. CONTRAST: Patient received 93ml optiray 320 of IV contrast COMPARISON: CT abdomen/pelvis on 04/24/2021 FINDINGS: Lung bases: Unremarkable. No mass. No consolidation. Pleural space: Trace gledc-kdkioqe-xeai-left pleural effusions. ABDOMEN: Liver: Hepatic steatosis. Hepatomegaly. Gallbladder and bile ducts: Prior cholecystectomy. No ductal dilation. Pancreas: Atrophy of the pancreas. No ductal dilation. Spleen: Unremarkable. No splenomegaly. Adrenals: Unremarkable. No mass. Kidneys and ureters: Atrophy of the kidneys. Bilateral perinephric fat stranding. 8 mm stone in the left renal pelvis. Nonobstructing bilateral renal stones. No significant hydronephrosis. Right renal cysts. No further follow-up necessary. Small hypodensities in the left kidney are too small to definitively characterize. Stomach and bowel: Gastric bypass changes. Evaluation of the stomach is limited by underdistention. Diverticulosis without evidence of diverticulitis. No small bowel obstruction. No evidence for active GI bleed. PELVIS: Appendix: Normal appendix. Bladder: Underdistended bladder limits evaluation. Please correlate with urinalysis if concerned for cystitis. Reproductive: Prior hysterectomy. ABDOMEN and PELVIS: Intraperitoneal space: Small amount of ascites. No free air. Bones/joints: Probable hemangioma in the T12 vertebral body. Degenerative changes of the spine. Grade 1 anterolisthesis of L4 on L5. No acute fracture. No dislocation. Soft tissues: Body wall edema. Small fat containing left inguinal hernia. Vasculature: Phleboliths in the pelvis. No abdominal aortic aneurysm. Lymph nodes: Unremarkable. No enlarged lymph nodes. Tubes, lines and devices: Pacer wires partially visualized in the heart. IMPRESSION: 1. No evidence for active GI bleed. 2. Body wall edema. 3. Small amount of ascites. 4. Underdistended bladder limits evaluation. Please correlate with urinalysis if concerned for cystitis. 5. Trace qdpyx-zbgmrev-awrs-left pleural effusions. 6. 8 mm stone in the left renal pelvis. Nonobstructing bilateral renal stones. No significant hydronephrosis. Electronically signed by: Floridalma Ervin M.D. 07/07/25 22:32 PM
--- NOTE | 2025-07-07 22:40 | XRay Report ---
Exam(s): XR CXR 1 VIEW EXAM: XR Chest, 1 View CLINICAL HISTORY: Reason for exam: power-port verification. TECHNIQUE: Frontal view of the chest. COMPARISON: None FINDINGS: Hardware: Right-sided Port-A-Cath terminates near the cavoatrial junction. Lungs/pleura: Prominent lung markings and hazy opacities. No pleural effusion or pneumothorax. Heart/mediastinum: Enlargement of the cardiac silhouette. Left-sided pacemaker/AICD. Atherosclerotic changes in the aorta. Soft tissues: Unremarkable. Bones: No acute fracture. Upper abdomen: Normal. IMPRESSION: 1. Right-sided Port-A-Cath terminates near the cavoatrial junction. 2. Prominent lung markings and hazy opacities may be secondary to technique versus pulmonary vasculature congestion/edema. Electronically signed by: Floridalma Ervin M.D. 07/07/25 22:40 PM
[2025-07-08] MEDS ORDERED: DEXTROSE 50% 50 ML SYRINGE IV PRN (04:15)
[2025-07-08] MEDS ORDERED: ALBUTEROL 0.083% NEBU SOLN 3 ML VIAL INH PRN (04:15)
[2025-07-08] MEDS ORDERED: CARBOHYDRATES FOR HYPOGLYCEMIA PO PRN (04:15)
[2025-07-08] MEDS ORDERED: GLUCOSE 40% GEL 15 GM TUBE PO PRN (04:15)
[2025-07-08] MEDS ORDERED: GLUCOSE 10 TAB/TUBE PO PRN (04:15)
[2025-07-08] MEDS ORDERED: NITROGLYCERIN SL 0.4 MG/TAB TAB SL PRN (04:15)
[2025-07-08] MEDS ORDERED: GLUCAGON FOR INJ 1 MG VIAL SQ PRN (04:15)
--- NOTE | 2025-07-08 04:22 | History & Physical Report ---
Date of Service July 08, 2025 Assessment & Plan (1) GI (gastrointestinal bleed): Plan: 64-year-old female with past medical history significant for paroxysmal tachycardia, sick sinus syndrome status post DCP upgrade to ICD in September 2024 for syncope/nonsustained V. tach, history of A-fib, severe mitral regurgitation with mitral stenosis, mild aortic insufficiency/, chronic diastolic CHF, ESRD on hemodialysis, hypertension, hyperlipidemia, sleep apnea on CPAP, type 2 diabetes, chronic anemia, nonsustained SVT, pulmonary hypertension, diabetic gastroparesis, chronic hyponatremia, status post gastric bypass, melanoma recurrence, depression, History of endometrial cancer presents with rectal bleed. Patient had a right fistulogram at [facility] yesterday and on the way back she noticed to have rectal bleed. Patient says has ongoing rectal bleed since last 2 weeks but yesterday it was severe. Patient states still having rectal bleed currently. Has abdominal cramps. Does not make urine. Denies any chest pain. Has some shortness of breath on exertion. No headache. No runny nose or sore throat. No cough. Currently hemodynamics are okay. GI bleed Blood per rectum Colonoscopy on 06/08/2025: One 6 mm polyp in ascending colon removed. Medium size lipoma in the mid ascending colon. Mild diverticulosis in the sigmoid colon and in the descending colon. Internal hemorrhoids. Pathology of the polyp came back as tubular adenoma. Random colon biopsy no significant pathology findings. Hemoglobin 9.8 around baseline IV Protonix 40 mg twice daily Blood consent obtained N.p.o. GI consult Close monitor ESRD On hemodialysis Nephrology consult Sick sinus syndrome Recent syncope/NSVT pacemaker upgraded to ICD On amiodarone A-fib On amiodarone, metoprolol succinate and Eliquis Will hold Eliquis for GI bleed Will monitor Chronic diastolic CHF Severe MR with MS On dialysis Obstructive sleep apnea CPAP nightly Diabetes Cut back on Lantus to 5 units daily as patient is currently n.p.o. Sliding scale Will monitor Nonobstructive CAD Continue statin and beta-griselda Holding Eliquis Depression and anxiety On buspirone, citalopram Hypothyroidism On Synthyroid GERD Currently placed on IV Protonix History of gastric bypass DVT prophylaxis SCDs for now Disposition Telemetry Full code. History of Present Illness Chief Complaint: Rectal bleed Primary Care Provider: Luis Fernando Rojas MD 64-year-old female with past medical history significant for paroxysmal tachycardia, sick sinus syndrome status post DCP upgrade to ICD in September 2024 for syncope/nonsustained V. tach, history of A-fib, severe mitral regurgitation with mitral stenosis, mild aortic insufficiency/, chronic diastolic CHF, ESRD on hemodialysis, hypertension, hyperlipidemia, sleep apnea on CPAP, type 2 diabetes, chronic anemia, nonsustained SVT, pulmonary hypertension, diabetic gastroparesis, chronic hyponatremia, status post gastric bypass, melanoma recurrence, depression, History of endometrial cancer presents with rectal bleed. Patient had a right fistulogram at [facility] yesterday and on the way back she noticed to have rectal bleed. Patient says has ongoing rectal bleed since last 2 weeks but yesterday it was severe. Patient states still having rectal bleed currently. Has abdominal cramps. Does not make urine. Denies any chest pain. Has some shortness of breath on exertion. No headache. No runny nose or sore throat. No cough. Currently hemodynamics are okay. Past med history. As mentioned above. Past surgical history. Abdominal wall hernia repair. Breast biopsy. Colonoscopy. Left heart catheterization. EGD. Status post biventricular de fibrillator. Laparoscopic biopsy of liver. Laparoscopic gastric bypass Chente-en-Y. Laparoscopic cholecystectomy. Breast biopsy. Right knee arthroscopy. Incisional hernia repair. Revision of gastrojejunal anastomosis. Excision of the malignant lesion over trunk/arm. Total abdominal hysterectomy with removal of tubes. Social history. . No smoking. No alcohol use. No drug use. Family history. Mother had breast cancer. Hypertension. Ovarian cancer. Father had stroke. Heart disorder. [place]. Paternal aunt had breast cancer. Paternal cousin had breast cancer. Maternal grandmother had colon cancer. Maternal grandfather had diabetes. Paternal grandfather had diabetes. Paternal grandmother had diabetes. Sister had CAD with PCI in 50s. Allergies Allergy/AdvReac Type Severity Reaction Status Date / Time CHIDI Inhibitors AdvReac Intermediate COUGH Verified 07/07/25 23:26 Home Medications Medication Instructions Recorded Confirmed Type insulin lispro 100 unit/mL See Rx Instructions .Route .COMPLEX 07/07/24 07/07/25 History subcutaneous solution acetaminophen 325 mg tablet 650 mg PO Q6H PRN PAIN/FEVER 10/04/24 07/07/25 History (Tylenol) atorvastatin 40 mg tablet 40 mg PO QAM 10/04/24 07/07/25 History biotin 10 mg tablet 10 mg PO DAILY 10/04/24 07/07/25 History cholecalciferol (vitamin D3) 125 125 mcg PO DAILY 10/04/24 07/07/25 History mcg (5,000 unit) tablet (Vitamin D3) colestipol 1 gram tablet 4 g PO .DAILY@1500 10/04/24 07/07/25 History gabapentin 300 mg capsule 300 mg PO BID 10/04/24 07/07/25 History insulin glargine 100 unit/mL (3 10 unit subcut QAM 10/04/24 07/07/25 History mL) subcutaneous pen (Lantus Solostar U-100 Insulin) levothyroxine 100 mcg tablet 100 mcg PO DAILYBB 10/04/24 07/07/25 History omeprazole 20 mg capsule,delayed 20 mg PO DAILY 10/04/24 07/07/25 History release pediatric multivitamin 1 tab PO BID 10/04/24 07/07/25 History midodrine 5 mg tablet 5 mg PO DIRECTED 11/03/24 07/07/25 History metoprolol succinate 25 mg 25 mg PO QAM #30 tabs 11/13/24 07/07/25 Rx tablet,extended release 24 hr Magic Swizzle 15 ml mucous membrane TID 07/07/25 07/07/25 History albuterol sulfate 2.5 mg/3 mL 2.5 mg inhalation DIRECTED PRN 07/07/25 07/07/25 History (0.083 %) solution for nebulization Shortness Of Breath Or Wheezing amiodarone 200 mg tablet 200 mg PO QAM 07/07/25 07/07/25 History apixaban 5 mg tablet (Eliquis) 5 mg PO BID 07/07/25 07/07/25 History buspirone 10 mg tablet 10 mg PO BID 07/07/25 07/07/25 History citalopram 20 mg tablet 20 mg PO DAILY 07/07/25 07/07/25 History jofnwg-kojijjnt-visjwj(pork)24,000-76,000-120,000 1 cap PO QID 07/07/25 07/07/25 History unit capsule,del rel (Creon) oxycodone 5 mg tablet 5 mg PO Q6H PRN Severe Pain (Scale 07/07/25 07/07/25 History Score 7-10) sevelamer carbonate 800 mg tablet See Rx Instructions .Route .COMPLEX 07/07/25 07/07/25 History (Renvela) Past Med/Surg History Problem List (Updated 12/14/24 @ 00:05 by Kranthi Arevalo) GI (gastrointestinal bleed) (Acute) Ventricular tachycardia (Acute) Mitral regurgitation and mitral stenosis Aortic stenosis, mild Mild mitral stenosis Abnormal urine findings Ventricular tachycardia Dialysis patient (Acute) Dysrhythmia (Acute) Rhinovirus infection (Acute) Syncope (Acute) Hypertension Rhinovirus infection (Acute) Hypoxia (Acute) Hypo-osmolar hyponatremia Insulin-requiring or dependent type II diabetes mellitus Acute on chronic heart failure with preserved ejection fraction Volume overload Acute bronchitis due to Rhinovirus Acute hypoxic respiratory failure Hypotension of hemodialysis Hyperkalemia Fracture of right tibial plateau Closed right tibial fracture (Acute) ESRD (end stage renal disease) on dialysis (Acute) Fall (Acute) Colon polyps S/P knee surgery (Chronic) DVT prophylaxis Anxiety Anemia Upper GI bleed (Acute) Hematemesis with nausea (Acute) Encounter for pre-operative examination Gastric ulcer COVID-19 (Acute) Acute dyspnea (Acute) Bilateral leg weakness (Acute) Anemia (Acute) Ambulatory dysfunction (Acute) Back pain (Acute) Tremor Obesity ESRD (end stage renal disease) on dialysis (Acute) Mon/Wed/Fri at [facility] in [place]. Pacemaker SSS Medtr[employer] follows with dr wiggins Chronic diastolic CHF (congestive heart failure) Depression Hypothyroidism SSS (sick sinus syndrome) Pt admitted for elective pacemaker due to SSS. She underwent procedure without any complications. Monitored over night and discharged home. MINISTERIO on CPAP (Chronic) MDD (major depressive disorder) (Chronic) HLD (hyperlipidemia) (Chronic) HTN (hypertension) (Chronic) Diabetes mellitus, type II (Chronic) IDDM H/O esophagogastroduodenoscopy (Chronic) Medical History ESRD (end stage renal disease) on dialysis Peripheral neuropathy bilateral legs/feet Anxiety History of anesthesia reaction woke up during hysterectomy in 1995 Hiatal hernia Osteoarthritis Degenerative disc disease Chronic back pain Post traumatic stress disorder History of anesthesia reaction when had port inserted needed more medication and could feel everything GERD (gastroesophageal reflux disease) Surgical History History of colonoscopy S/P left knee arthroscopy S/P right knee arthroscopy H/O radical excision of skin lesion melanoma S/P cardiac pacemaker procedure medtronic device, last checked ~2 months ago. Follow[address] with Dr Stevenson S/P arteriovenous (AV) fistula creation Right arm History of vitrectomy History of cataract surgery bilateral History of adenoidectomy History of tonsillectomy H/O umbilical hernia repair open (~November 2022 [facility]) --> went to [facility] for rehab therapy for about 2 weeks. S/P dialysis catheter insertion right side of chest (since removed) S/P [place]-BSO H/O hernia repair Hx of gastric bypass History of cholecystectomy Hx of cardiac cath "2012, negative for CAD " Family History Other Colonic polyp GERD (gastroesophageal reflux disease) No family history of adverse response to anesthesia Social History Smoking Status: Never smoker Second Hand Exposure: No; Do You Dip or Chew Tobacco: No; Hx Alcohol Use: No Hx Substance Use: No Preferred Language: Citizen Of [place] Communication Ability: Effective Facilities Planner Required: No Beliefs That Will Affect Care: None marital status: Current Living Situation: Spouse Current Living Situation Comment: lives with Feels Safe at Home: Yes Assistive Devices: Cane, CPAP, Nebulizer and Walker Review of Systems Review of Systems: All systems reviewed & are unremarkable except as noted in HPI & below Physical Exam Physical Exam: General- Not in distress. Head- atraumatic Eyes- PERRL. ENT- oropharynx clear Neck- supple, no JVD. Lungs- clear to auscultation no wheezing or crackles. Heart- regular rhythm; no murmur, no gallop. Abdomen- normal bowel sounds, soft, nontender, no distension. Extremities- no pretibial edema, no erythema seen Neuro- alert, oriented PERRL, no facial palsy; no dysarthria; moves extremities Results & Data Results & Data Vital Signs (Past 12 Hours) Vital Signs Temp Pulse Pulse Resp BP BP Pulse Ox 07/07/25 23:29 75 07/07/25 23:01 95/74 L 07/07/25 23:01 95/74 L 07/07/25 23:01 95/74 L 07/07/25 23:01 95/74 L 07/07/25 23:01 95/74 L 07/07/25 23:00 75 11 L 93 07/07/25 22:51 75 12 95 07/07/25 22:42 75 11 L 95 07/07/25 22:31 96/63 L 07/07/25 22:31 96/63 L 07/07/25 22:31 96/63 L 07/07/25 22:31 96/63 L 07/07/25 22:31 96/63 L 07/07/25 22:15 80 24 96 07/07/25 22:15 117/74 07/07/25 22:15 117/74 07/07/25 22:15 117/74 07/07/25 22:15 117/74 07/07/25 22:15 117/74 07/07/25 22:12 91 H 23 91 07/07/25 21:33 75 20 99 07/07/25 21:31 104/77 07/07/25 21:04 93/60 L 07/07/25 21:04 93/60 L 07/07/25 20:30 122/66 07/07/25 20:30 122/66 07/07/25 20:30 122/66 07/07/25 20:30 122/66 07/07/25 20:30 122/66 07/07/25 20:30 75 25 H 95 07/07/25 20:21 75 17 93 07/07/25 20:12 75 15 95 07/07/25 20:00 106/73 07/07/25 20:00 106/73 07/07/25 20:00 106/73 07/07/25 20:00 106/73 07/07/25 20:00 106/73 07/07/25 20:00 75 13 95 07/07/25 19:51 75 20 93 07/07/25 19:42 75 21 106/51 L 92 07/07/25 19:31 106/51 L 07/07/25 19:12 75 20 92/56 L 94 07/07/25 19:08 81 12/18/25 19:00 92/56 L 07/07/25 18:58 36.7 C 81 18 92/56 L 98 07/07/25 18:57 76 18 94 07/07/25 17:39 36.4 C L 80 18 123/70 97 O2 Del Method 07/07/25 23:29 07/07/25 23:01 07/07/25 23:01 07/07/25 23:01 07/07/25 23:01 07/07/25 23:01 07/07/25 23:00 07/07/25 22:51 07/07/25 22:42 07/07/25 22:31 07/07/25 22:31 07/07/25 22:31 07/07/25 22:31 07/07/25 22:31 07/07/25 22:15 07/07/25 22:15 07/07/25 22:15 07/07/25 22:15 07/07/25 22:15 07/07/25 22:15 07/07/25 22:12 07/07/25 21:33 07/07/25 21:31 07/07/25 21:04 07/07/25 21:04 07/07/25 20:30 07/07/25 20:30 07/07/25 20:30 07/07/25 20:30 07/07/25 20:30 07/07/25 20:30 07/07/25 20:21 07/07/25 20:12 07/07/25 20:00 07/07/25 20:00 07/07/25 20:00 07/07/25 20:00 07/07/25 20:00 07/07/25 20:00 07/07/25 19:51 07/07/25 19:42 07/07/25 19:31 07/07/25 19:12 07/07/25 19:08 07/07/25 19:00 07/07/25 18:58 Room Air 07/07/25 18:57 Room Air 07/07/25 17:39 Diagnostic Findings Laboratory Results WBC 8.71 K/ul (4.8-10.8) 07/07/25 18:15 RBC 3.09 M/uL (4.20-5.40) L 07/07/25 18:15 Hgb 9.8 g/dL (12.0-16.0) L 07/07/25 18:15 Hct 30.8 % (37.0-47.0) L 07/07/25 18:15 MCV 99.7 fL (80.0-100.0) 07/07/25 18:15 MCH 31.7 pg (25.0-34.0) 07/07/25 18:15 MCHC 31.8 g/dL (32.0-36.0) L 07/07/25 18:15 RDW Std Deviation 57.2 fL (36.4-46.3) H 07/07/25 18:15 RDW Coeff of Leatha 15.9 % (11.5-14.5) H 07/07/25 18:15 Plt Count 148 K/uL (130-400) 07/07/25 18:15 MPV 11.4 fL (9.4-12.4) 07/07/25 18:15 PT 12.8 Seconds (9.0-12.0) H 07/07/25 18:15 INR 1.2 (0.9-1.1) H 07/07/25 18:15 APTT 33 Seconds (21-31) H 07/07/25 18:15 PTT Ratio 1.2 07/07/25 18:15 Sodium 131 mmol/L (136-145) L 07/07/25 18:15 Potassium 4.9 mmol/L (3.5-5.1) 07/07/25 18:15 Chloride 98 mmol/L (98-107) 07/07/25 18:15 Carbon Dioxide 16 mmol/L (21-32) L 07/07/25 18:15 Anion Gap 17 (3-11) H 07/07/25 18:15 BUN 99 mg/dl (6-23) H 07/07/25 18:15 Creatinine 10.27 mg/dl (0.6-1.2) H* 07/07/25 18:15 Est Cr Clr Drug Dosing 6.2 ml/min 07/07/25 18:15 eGFR 3.80 07/07/25 18:15 BUN/Creatinine Ratio 9.6 (10-20) L 07/07/25 18:15 Glucose 471 mg/dl (70-99(Fasting)) H* 07/07/25 18:15 POC Glucose 276 mg/dl (70-99) H 07/07/25 20:55 Calcium 8.2 mg/dl (8.6-10.3) L 07/07/25 18:15 Total Bilirubin 0.5 mg/dl (0.2-1.0) 07/07/25 18:15 AST 29 U/L (13-39) 07/07/25 18:15 ALT 23 U/L (7-52) 07/07/25 18:15 Alkaline Phosphatase 151 U/L (34-104) H 07/07/25 18:15 Troponin I High Sens 17.1 pg/ml (0-14) H 07/07/25 18:15 Total Protein 6.3 gm/dl (6.0-8.3) 07/07/25 18:15 Albumin 3.5 gm/dl (3.4-5.0) 07/07/25 18:15 Globulin 2.8 gm/dl (2.5-4.0) 07/07/25 18:15 Albumin/Globulin Ratio 1.3 (0.9-2) 07/07/25 18:15 POC Stool Occult Blood Positive (Negative) A 07/07/25 17:59 Blood Type AB Positive 07/07/25 18:15 Antibody Screen NEGATIVE 07/07/25 18:15 Impressions Abdomen/Pelvis CT 07/07/25 19:06 Exam(s): CT ABDOMEN + PELVIS With Contrast IV Amt: 93ml optiray 320 EXAM: CT Abdomen and Pelvis With Intravenous Contrast CLINICAL HISTORY: Reason for exam: GI bleed protocol. TECHNIQUE: Axial computed tomography images of the abdomen and pelvis with intravenous contrast. CTDI is 27.22 mGy and DLP is 1409.92 mGy-cm. Automated exposure control was utilized for the study. A dose lowering technique was utilized adhering to the principles of ALARA. CONTRAST: Patient received 93ml optiray 320 of IV contrast COMPARISON: CT abdomen/pelvis on 04/24/2021 FINDINGS: Lung bases: Unremarkable. No mass. No consolidation. Pleural space: Trace bkezq-axidbka-vmrd-left pleural effusions. ABDOMEN: Liver: Hepatic steatosis. Hepatomegaly. Gallbladder and bile ducts: Prior cholecystectomy. No ductal dilation. Pancreas: Atrophy of the pancreas. No ductal dilation. Spleen: Unremarkable. No splenomegaly. Adrenals: Unremarkable. No mass. Kidneys and ureters: Atrophy of the kidneys. Bilateral perinephric fat stranding. 8 mm stone in the left renal pelvis. Nonobstructing bilateral renal stones. No significant hydronephrosis. Right renal cysts. No further follow-up necessary. Small hypodensities in the left kidney are too small to definitively characterize. Stomach and bowel: Gastric bypass changes. Evaluation of the stomach is limited by underdistention. Diverticulosis without evidence of diverticulitis. No small bowel obstruction. No evidence for active GI bleed. PELVIS: Appendix: Normal appendix. Bladder: Underdistended bladder limits evaluation. Please correlate with urinalysis if concerned for cystitis. Reproductive: Prior hysterectomy. ABDOMEN and PELVIS: Intraperitoneal space: Small amount of ascites. No free air. Bones/joints: Probable hemangioma in the T12 vertebral body. Degenerative changes of the spine. Grade 1 anterolisthesis of L4 on L5. No acute fracture. No dislocation. Soft tissues: Body wall edema. Small fat containing left inguinal hernia. Vasculature: Phleboliths in the pelvis. No abdominal aortic aneurysm. Lymph nodes: Unremarkable. No enlarged lymph nodes. Tubes, lines and devices: Pacer wires partially visualized in the heart. IMPRESSION: 1. No evidence for active GI bleed. 2. Body wall edema. 3. Small amount of ascites. 4. Underdistended bladder limits evaluation. Please correlate with urinalysis if concerned for cystitis. 5. Trace slhlb-jtghtmh-blfy-left pleural effusions. 6. 8 mm stone in the left renal pelvis. Nonobstructing bilateral renal stones. No significant hydronephrosis. Electronically signed by: Floridalma Ervin M.D. 07/07/25 22:32 PM Chest X-Ray 07/07/25 20:50 Exam(s): XR CXR 1 VIEW EXAM: XR Chest, 1 View CLINICAL HISTORY: Reason for exam: power-port verification. TECHNIQUE: Frontal view of the chest. COMPARISON: None FINDINGS: Hardware: Right-sided Port-A-Cath terminates near the cavoatrial junction. Lungs/pleura: Prominent lung markings and hazy opacities. No pleural effusion or pneumothorax. Heart/mediastinum: Enlargement of the cardiac silhouette. Left-sided pacemaker/AICD. Atherosclerotic changes in the aorta. Soft tissues: Unremarkable. Bones: No acute fracture. Upper abdomen: Normal. IMPRESSION: 1. Right-sided Port-A-Cath terminates near the cavoatrial junction. 2. Prominent lung markings and hazy opacities may be secondary to technique versus pulmonary vasculature congestion/edema. Electronically signed by: Floridalma Ervin M.D. 07/07/25 22:40 PM Code Status & VTE Plan VTE Prophylaxis Plan VTE Prophylaxis will be ordered: Yes
[2025-07-08] MEDS ORDERED: SEVELAMER CARBONATE 800 MG TAB PO PRN (05:02)
[2025-07-08] MEDS: ACETAMINOPHEN 325 MG TAB PO PRN (05:16)
[2025-07-08] MEDS: INSULIN ASPART PER UNIT CHARGE SC SCH ×2 (05:24→21:30)
[2025-07-08 05:50] LABS: Hematocrit (blood only) 28.5 % (37.0-47.0); Hemoglobin 9.3 g/dL (12.0-16.0); Immature Granulocytes # (auto) 0.03 K/uL (0.01-0.20); Immature Granulocytes % (auto) 0.4 %; Mean Corpuscular Hemoglobin 32.1 pg (25.0-34.0); Mean Corpuscular Volume 98.3 fL (80.0-100.0); Platelet Count 159 K/uL (130-400); RDW Standard Deviation 56.6 fL (36.4-46.3); Red Blood Count 2.90 M/uL (4.20-5.40); White Blood Count 8.46 K/ul (4.8-10.8)
[2025-07-08 06:10] LABS: Anion Gap 17.0 (3-11); Blood Urea Nitrogen 102.0 mg/dl (6-23); Calcium 8.6 mg/dl (8.6-10.3); Carbon Dioxide 17.0 mmol/L (21-32); Chloride 100.0 mmol/L (98-107); Creatinine Clr Calc Pharmacy 6.1 ml/min; Glucose 72.0 mg/dl (70-99(Fasting)); Magnesium 2.7 mg/dl (1.7-2.4); Potassium 4.7 mmol/L (3.5-5.1); Sodium 134.0 mmol/L (136-145)
[2025-07-08] MEDS: LEVOTHYROXINE SODIUM 100 MCG TABLET PO SCH (07:21)
[2025-07-08 08:34] LABS: Hemoglobin A1C 8.5 % (4.5-5.6)
[2025-07-08] MEDS: PANCREAZE (LIPASE 10,500U) CAP PO SCH (08:57)
[2025-07-08] MEDS: GABAPENTIN 300 MG CAP PO SCH (08:57)
[2025-07-08] MEDS: SEVELAMER CARBONATE 800 MG TAB PO SCH ×2 (08:57→17:42)
[2025-07-08] MEDS: CHOLECALCIFEROL 125 MCG (5,000 UNITS) TAB PO SCH (08:58)
[2025-07-08] MEDS: busPIRone 5 MG TAB PO SCH (08:58)
[2025-07-08] MEDS: CITALOPRAM 20 MG TAB PO SCH (08:58)
[2025-07-08] MEDS: AMIODARONE 200 MG TAB PO SCH (08:58)
[2025-07-08] MEDS: METOPROLOL SUCC 25MG EXT REL TAB PO SCH (08:58)
[2025-07-08] MEDS: PANTOprazole 40 MG/10 ML SYR IV SCH (08:59)
[2025-07-08] MEDS: MULTIVITAMIN CHEWABLE TAB PO SCH (08:59)
[2025-07-08] MEDS: ATORVASTATIN 40 MG TAB PO SCH (08:59)
[2025-07-08] MEDS: LANTUS PER UNIT CHARGE SQ SCH (08:59)
[2025-07-08] MEDS ORDERED: NON-FORMULARY MEDICATION (Magic Swizzle 15 ML) mucous membrane SCH (09:00)
[2025-07-08] MEDS: EPOETIN ALFA 10,000 UNITS/ML VIAL IV STA (10:19)
[2025-07-08] MEDS: MIDODRINE HCL 2.5 MG TAB PO PRN (10:19)
--- NOTE | 2025-07-08 11:44 | Communication Note ---
Date of Service: July 08, 2025 Patient seen and examined Reports chronic bloody BM but worsened yesterday associated with abd cramps and fatigue Currently getting HD Will monitor Hb. Transfuse prn for Hb<7 WIll follow up GI ramya and recs Other plans as detailed in H/P this AM
--- NOTE | 2025-07-08 12:27 | Gastrointestinal Consultation ---
Date of Consultation July 08, 2025 Assessment & Plan (1) Rectal bleeding: Patient admitted with rectal bleeding x 2 weeks with sudden worsening. She had a colonoscopy with polypectomy about 1 month ago at [facility]. She is currently getting dialysis. - continue to monitor hgb/hct. transfuse as needed. - would monitor for now, if ongoing bleeding, likely will need prepped and repeat colonoscopy. - continue to hold eliquis. -Further recommendations to come with Supervising GI provider on medical rounds. Please see co-signature comments. Supervising Physician Co-Signing Physician Notes Persistent rectal bleeding with clots for the last few weeks. Comes in feeling weak and tired. Hemoglobin 9.3. Patient has renal failure. She had a cholecystectomy and ascending colon polypectomy on June 08. Atypical to have post polypectomy bleeding at this rate though patient had increased risk of delayed healing with her renal failure plus platelet dysfunction from renal failure. Alternatively she has a history of diverticulosis and hemorrhoids. Because of ongoing bleeding colon prep and colonoscopy. Potential clipping of ascending colon site if found to be bleeding. Patient did have dialysis today so should be able to tolerate colon prep. History of Present Illness Reason for Consultation: rectal bleeding Requesting Physician: Song English MD Attending Physician: April Blair MD History of Present Illness Patient is a 64 year old female with a past medical history significant for paroxysmal tachycardia, sick sinus syndrome status post DCP upgrade to ICD in September 2024 for syncope/nonsustained V. tach, history of A-fib, severe mitral regurgitation with mitral stenosis, mild aortic insufficiency/, chronic diastolic CHF, ESRD on hemodialysis, hypertension, hyperlipidemia, sleep apnea on CPAP, type 2 diabetes, chronic anemia, nonsustained SVT, pulmonary hypertension, diabetic gastroparesis, chronic hyponatremia, status post gastric bypass, melanoma recurrence, depression, history of endometrial cancer who presented to the ED on 07/07 with complaints of rectal bleeding. Patient says she has had some ongoing rectal bleeding the past 2 weeks but yesterday it was severe which prompted ED presentation. Patient states she is still having rectal bleeding currently. She notes diarrhea at baseline due to a history of pancreatic insufficiency. she feels the bleeding is about the same as yesterday. she notes crampy abdominal pain. she is also noticing blood clots in her stools. The remainder of the GI ROS were unremarkable. She had a colonoscopy at [facility] on 06/08/25 that reportedly shown : One 6 mm polyp in ascending colon removed. Medium size lipoma in the mid ascending colon. Mild diverticulosis in the sigmoid colon and in the descending colon. Internal hemorrhoids. Pathology of the polyp came back as tubular adenoma. Random colon biopsy no significant pathology findings. 07/08/25 WBC 8.46, hgb 9.3, hct 28.5, plts 159, Na 134, K 4.7, BUN 102, Cr 10.40. 07/07/25 CT A/P : 1. No evidence for active GI bleed. 2. Body wall edema. 3. Small amount of ascites. 4. Underdistended bladder limits evaluation. Please correlate with urinalysis if concerned for cystitis. 5. Trace xenbx-caizuln-lect-left pleural effusions. 6. 8 mm stone in the left renal pelvis. Nonobstructing bilateral renal stones. No significant hydronephrosis. Allergies Allergy/AdvReac Type Severity Reaction Status Date / Time CHIDI Inhibitors AdvReac Intermediate COUGH Verified 07/07/25 23:26 Home Medications Medication Instructions Recorded Confirmed Type insulin lispro 100 unit/mL See Rx Instructions .Route .COMPLEX 07/07/24 07/07/25 History subcutaneous solution acetaminophen 325 mg tablet 650 mg PO Q6H PRN PAIN/FEVER 10/04/24 07/07/25 History (Tylenol) atorvastatin 40 mg tablet 40 mg PO QAM 10/04/24 07/07/25 History biotin 10 mg tablet 10 mg PO DAILY 10/04/24 07/07/25 History cholecalciferol (vitamin D3) 125 125 mcg PO DAILY 10/04/24 07/07/25 History mcg (5,000 unit) tablet (Vitamin D3) colestipol 1 gram tablet 4 g PO .DAILY@1500 10/04/24 07/07/25 History gabapentin 300 mg capsule 300 mg PO BID 10/04/24 07/07/25 History insulin glargine 100 unit/mL (3 10 unit subcut QAM 10/04/24 07/07/25 History mL) subcutaneous pen (Lantus Solostar U-100 Insulin) levothyroxine 100 mcg tablet 100 mcg PO DAILYBB 10/04/24 07/07/25 History omeprazole 20 mg capsule,delayed 20 mg PO DAILY 10/04/24 07/07/25 History release pediatric multivitamin 1 tab PO BID 10/04/24 07/07/25 History midodrine 5 mg tablet 5 mg PO DIRECTED 11/03/24 07/07/25 History metoprolol succinate 25 mg 25 mg PO QAM #30 tabs 11/13/24 07/07/25 Rx tablet,extended release 24 hr Magic Swizzle 15 ml mucous membrane TID 07/07/25 07/07/25 History albuterol sulfate 2.5 mg/3 mL 2.5 mg inhalation DIRECTED PRN 07/07/25 07/07/25 History (0.083 %) solution for nebulization Shortness Of Breath Or Wheezing amiodarone 200 mg tablet 200 mg PO QAM 07/07/25 07/07/25 History apixaban 5 mg tablet (Eliquis) 5 mg PO BID 07/07/25 07/07/25 History buspirone 10 mg tablet 10 mg PO BID 07/07/25 07/07/25 History citalopram 20 mg tablet 20 mg PO DAILY 07/07/25 07/07/25 History zlzzim-esswqres-mmgycy(pork)24,000-76,000-120,000 1 cap PO QID 07/07/25 07/07/25 History unit capsule,del rel (Creon) oxycodone 5 mg tablet 5 mg PO Q6H PRN Severe Pain (Scale 07/07/25 07/07/25 History Score 7-10) sevelamer carbonate 800 mg tablet See Rx Instructions .Route .COMPLEX 07/07/25 07/07/25 History (Renvela) Patient History Medical History ESRD (end stage renal disease) on dialysis Peripheral neuropathy bilateral legs/feet Anxiety History of anesthesia reaction woke up during hysterectomy in 1995 Hiatal hernia Osteoarthritis Degenerative disc disease Chronic back pain Post traumatic stress disorder History of anesthesia reaction when had port inserted needed more medication and could feel everything GERD (gastroesophageal reflux disease) Surgical History History of colonoscopy S/P left knee arthroscopy S/P right knee arthroscopy H/O radical excision of skin lesion melanoma S/P cardiac pacemaker procedure medFreshGrade device, last checked ~2 months ago[address] Follows with Dr Stevenson S/P arteriovenous (AV) fistula creation Right arm History of vitrectomy History of cataract surgery bilateral History of adenoidectomy History of tonsillectomy H/O umbilical hernia repair open (~November [address] [facility] [place]) --> went to [facility] for rehab therapy for about 2 weeks. S/P dialysis catheter insertion right side of chest (since removed) S/P [place]-BSO H/O hernia repair Hx of gastric bypass History of cholecystectomy Hx of cardiac cath "2012, negative for CAD " Family History Other Colonic polyp GERD (gastroesophageal reflux disease) No family history of adverse response to anesthesia Social History Smoking Status: Never smoker Second Hand Exposure: Yes (PREVIOUS MARRIAGE, NOT SINCE 1982); Do You Dip or Chew Tobacco: No; Tobacco Cessation Education Requested by Patient: No Hx Alcohol Use: No Hx Substance Use: No Preferred Language: Syriac Communication Ability: Effective Instructor Ballroom Dancing Required: No Beliefs That Will Affect Care: None marital status: Current Living Situation: Spouse Current Living Situation Comment: lives with Feels Safe at Home: Yes Safety Concerns: Feels Safe At This Time Assistive Devices: CPAP and Walker Review of Systems Review of Systems: All systems reviewed & are unremarkable except as noted in HPI & below Physical Exam Constitutional: WD/WN, vitals as above Respiratory: normal respiratory effort, lungs clear to auscultation Cardiovascular: Rate/Rhythm: regular rate and regular rhythm Gastrointestinal (Abdomen): mild diffuse tenderness, no guarding, soft, normal bowel sounds. Psychiatric: Orientation: alert and oriented x 3 Affect: euthymic affect Results & Data Vital Signs (Past 12 Hours) Vital Signs Temp Pulse Pulse Resp BP Pulse Ox 07/08/25 11:30 77 95/57 L 07/08/25 11:00 75 110/59 L 07/08/25 10:30 77 90/61 L 07/08/25 10:00 75 91/60 L 07/08/25 09:46 76 96/65 L 07/08/25 09:46 76 96/65 L 07/08/25 09:40 97.9 F 83 07/08/25 07:15 75 07/08/25 06:00 77 16 112/73 96 07/08/25 05:00 77 12 95/61 L 96 07/08/25 03:12 77 14 126/73 97 07/08/25 02:30 75 22 107/85 95 07/08/25 02:00 75 12 110/77 96 07/08/25 01:30 76 13 126/84 97 07/08/25 01:00 75 13 112/73 96 Coding Level of Care Code 14203 INT INP/OBS CARE 2/55MIN Diagnoses Rectal bleeding K62.5
[2025-07-08 13:54] LABS: Hematocrit (blood only) 27.3 % (37.0-47.0); Hemoglobin 9.3 g/dL (12.0-16.0)
--- NOTE | 2025-07-08 17:11 | Nephrology Consultation ---
Date of Consultation July 08, 2025 Assessment & Plan (1) ESRD (end stage renal disease) on dialysis: ESRD on --MWF. Had earlier today. BP remained low and made it somewhat challenging. But still managed to take 3 liter off. She does not make any urine so improitant we take some UF. NO issues with lytes and AVF worked fine after fistulogram yesterday. next HD for Friday as outpt. (2) GI (gastrointestinal bleed): Hgb remains fairly good at 9.4-- for ESRD patient despite rectal bleed. Admitted with rectal bleeding x 2 weeks with sudden worsening. She had a colonoscopy with polypectomy about 1 month ago at [facility]. She is currently getting dialysis. continue to monitor hgb/hct. transfuse as needed. if ongoing bleeding, likely will need prepped and repeat colonoscopy. continue to hold eliquis. reviewed GI note. Plan time spent 46 mins History of Present Illness Reason for Consultation: ESRD on HD admitted with GI bleed Attending Physician: April Blair MD History of Present Illness 64-year-old female with ESRD on in center HD --MWF under my care. Also has paroxysmal tachycardia, sick sinus syndrome status post DCP upgrade to ICD in September 2024 for syncope/nonsustained V. tach, history of A-fib, severe mitral regurgitation with mitral stenosis, mild aortic insufficiency/, chronic diastolic CHF, ESRD on hemodialysis, hypertension, hyperlipidemia, sleep apnea on CPAP, type 2 diabetes, chronic anemia, nonsustained SVT, pulmonary hypertension, diabetic gastroparesis, chronic hyponatremia, status post gastric bypass, melanoma recurrence, depression, History of endometrial cancer presented with rectal bleed. Patient had a right fistulogram at [facility] yesterday and on the way back she noticed to have rectal bleed. Patient says has ongoing rectal bleed since last 2 weeks -after recent Colonoscopy--noted to have hemorrhoids. But yesterday it was severe. Patient states still having rectal bleed currently. Has abdominal cramps. Does not make urine. Denies any chest pain. Has some shortness of breath on exertion. No headache. No runny nose or sore throat. No cough. Currently hemodynamics are okay. Last HD fri--she is very adherent to Treatment but has issues with bigger wt gains. had dialysis earlier today and no issues with AVF. BP remained low all along but no symptoms. ROS--12 systems reviewed and negative. Physical Exam Physical Exam: General- Not in distress. awake and alert. Neck- supple, no JVD. Lungs- clear to auscultation no wheezing or crackles. Heart- regular rhythm; no murmur, no gallop. Abdomen- soft, nontender, no distension. Extremities- no edema. AVF in rt lower arm--good bruit and thrill Neuro- alert, oriented PERRL, no facial palsy; no dysarthria; moves extremities Allergies Allergy/AdvReac Type Severity Reaction Status Date / Time CHIDI Inhibitors AdvReac Intermediate COUGH Verified 07/07/25 23:26 Home Medications Medication Instructions Recorded Confirmed Type insulin lispro 100 unit/mL See Rx Instructions .Route .COMPLEX 07/07/24 07/07/25 History subcutaneous solution acetaminophen 325 mg tablet 650 mg PO Q6H PRN PAIN/FEVER 10/04/24 07/07/25 History (Tylenol) atorvastatin 40 mg tablet 40 mg PO QAM 10/04/24 07/07/25 History biotin 10 mg tablet 10 mg PO DAILY 10/04/24 07/07/25 History cholecalciferol (vitamin D3) 125 125 mcg PO DAILY 10/04/24 07/07/25 History mcg (5,000 unit) tablet (Vitamin D3) colestipol 1 gram tablet 4 g PO .DAILY@1500 10/04/24 07/07/25 History gabapentin 300 mg capsule 300 mg PO BID 10/04/24 07/07/25 History insulin glargine 100 unit/mL (3 10 unit subcut QAM 10/04/24 07/07/25 History mL) subcutaneous pen (Lantus Solostar U-100 Insulin) levothyroxine 100 mcg tablet 100 mcg PO DAILYBB 10/04/24 07/07/25 History omeprazole 20 mg capsule,delayed 20 mg PO DAILY 10/04/24 07/07/25 History release pediatric multivitamin 1 tab PO BID 10/04/24 07/07/25 History midodrine 5 mg tablet 5 mg PO DIRECTED 11/03/24 07/07/25 History metoprolol succinate 25 mg 25 mg PO QAM #30 tabs 11/13/24 07/07/25 Rx tablet,extended release 24 hr Magic Swizzle 15 ml mucous membrane TID 07/07/25 07/07/25 History albuterol sulfate 2.5 mg/3 mL 2.5 mg inhalation DIRECTED PRN 07/07/2506/20 History (0.083 %) solution for nebulization Shortness Of Breath Or Wheezing amiodarone 200 mg tablet 200 mg PO QAM 07/07/25 07/07/25 History apixaban 5 mg tablet (Eliquis) 5 mg PO BID 07/07/25 07/07/25 History buspirone 10 mg tablet 10 mg PO BID 07/07/25 07/07/25 History citalopram 20 mg tablet 20 mg PO DAILY 07/07/25 07/07/25 History dmkzwt-hvsdmszj-ihvaii(pork)24,000-76,000-120,000 1 cap PO QID 07/07/25 07/07/25 History unit capsule,del rel (Creon) oxycodone 5 mg tablet 5 mg PO Q6H PRN Severe Pain (Scale 07/07/25 07/07/25 History Score 7-10) sevelamer carbonate 800 mg tablet See Rx Instructions .Route .COMPLEX 07/07/25 07/07/25 History (Renvela) Patient History Medical History ESRD (end stage renal disease) on dialysis Peripheral neuropathy bilateral legs/feet Anxiety History of anesthesia reaction woke up during hysterectomy in 1995 Hiatal hernia Osteoarthritis Degenerative disc disease Chronic back pain Post traumatic stress disorder History of anesthesia reaction when had port inserted needed more medication and could feel everything GERD (gastroesophageal reflux disease) Surgical History History of colonoscopy S/P left knee arthroscopy S/P right knee arthroscopy H/O radical excision of skin lesion melanoma S/P cardiac pacemaker procedure medtronic device, last checked ~2 months ago[address] Follows with Dr Stevenson S/P arteriovenous (AV) fistula creation Right arm History of vitrectomy History of cataract surgery bilateral History of adenoidectomy History of tonsillectomy H/O umbilical hernia repair open (~November 2022 [facility]) --> went to [facility] for rehab therapy for about 2 weeks. S/P dialysis catheter insertion right side of chest (since removed) S/P [place]-BSO H/O hernia repair Hx of gastric bypass History of cholecystectomy Hx of cardiac cath "2012, negative for CAD " Family History Other Colonic polyp GERD (gastroesophageal reflux disease) No family history of adverse response to anesthesia Social History Smoking Status: Never smoker Second Hand Exposure: Yes (PREVIOUS MARRIAGE, NOT SINCE 1982); Do You Dip or Chew Tobacco: No; Tobacco Cessation Education Requested by Patient: No Hx Alcohol Use: No Hx Substance Use: No Preferred Language: Welsh Communication Ability: Effective Public Space Attendant Required: No Beliefs That Will Affect Care: None marital status: Current Living Situation: Spouse Current Living Situation Comment: lives with Feels Safe at Home: Yes Safety Concerns: Feels Safe At This Time Assistive Devices: CPAP and Walker Results & Data Vital Signs (Past 12 Hours) Vital Signs Temp Pulse Pulse Resp BP BP Pulse Ox 07/08/25 16:01 36.6 C 84 16 112/68 94 07/08/25 15:58 77 07/08/25 14:56 77 18 119/55 L 98 07/08/25 13:55 36.7 C 81 98/58 L 07/08/25 13:30 77 89/54 L 07/08/25 13:00 78 89/52 L 07/08/25 12:30 75 103/51 L 07/08/25 12:00 76 100/55 L 07/08/25 11:30 77 95/57 L 07/08/25 11:00 75 110/59 L 07/08/25 10:30 77 90/61 L 07/08/25 10:00 75 91/60 L 07/08/25 09:46 76 96/65 L 07/08/25 09:46 76 96/65 L 07/08/25 09:40 36.6 C 83 07/08/25 07:15 75 07/08/25 06:00 77 16 112/73 96 O2 Del Method 07/08/25 16:01 Room Air 07/08/25 15:58 07/08/25 14:56 Room Air 07/08/25 13:55 07/08/25 13:30 07/08/25 13:00 07/08/25 12:30 07/08/25 12:00 07/08/25 11:30 07/08/25 11:00 07/08/25 10:30 07/08/25 10:00 07/08/25 09:46 07/08/25 09:46 07/08/25 09:40 07/08/25 07:15 07/08/25 06:00
[2025-07-08] MEDS: Nursing to Pharmacy Communication SCH (18:18)
[2025-07-08] MEDS: LAVAGE SOLUTION 4000ML PO SCH (18:53)
[2025-07-08 18:54] LABS: Hematocrit (blood only) 27.9 % (37.0-47.0); Hemoglobin 9.0 g/dL (12.0-16.0)
[2025-07-09 00:58] LABS: Hematocrit (blood only) 28.7 % (37.0-47.0); Hemoglobin 9.2 g/dL (12.0-16.0)
[2025-07-09] MEDS: INSULIN ASPART PER UNIT CHARGE SC SCH ×2 (06:21→12:11)
[2025-07-09] MEDS ORDERED: LIDOCAINE 2% 2 ML VIAL/AMP(20MG/ML) INFIL ONE (06:52)
[2025-07-09] MEDS ORDERED: PROPOFOL IV EMULSION 10 MG/ML 20 ML VIAL IV ONE (06:52)
--- NOTE | 2025-07-09 07:00 | Gastroenterology Progress Note ---
Date of Service July 09, 2025 Assessment & Plan (1) Rectal bleeding: Plan: Suspect post polypectomy bleed. Will proceed with colonoscopy today. Admission and Anticipated Discharge Date Admission Date: July 08, 2025 Subjective Tolerated bowel prep no overt bleeding Physical Exam Physical Exam: No acute distress Respiratory rate regular Cardiac rhythm regular Abdomen soft nontender Results & Data Results & Data Vital Signs (Past 12 Hours) Vital Signs Temp Pulse Pulse Resp BP Pulse Ox O2 Del Method 07/09/25 03:06 36.5 C 76 20 132/78 96 Room Air 07/08/25 23:31 76 07/08/25 22:40 36.6 C 78 18 142/79 H 98 Room Air 07/08/25 19:35 36.6 C 75 18 145/82 H 98 Room Air Laboratory Results Laboratory Results - last 48 hr 07/07/25 07/07/25 07/07/25 17:59 18:15 20:55 WBC 8.71 RBC 3.09 L Hgb 9.8 L Hct 30.8 L MCV 99.7 MCH 31.7 MCHC 31.8 L RDW Std Deviation 57.2 H RDW Coeff of Leatha 15.9 H Plt Count 148 MPV 11.4 Immature Gran % (Auto) Neut % (Auto) Lymph % (Auto) [place] % (Auto) Eos % (Auto) Baso % (Auto) Neut # (Auto) Lymph # (Auto) [place] # (Auto) Eos # (Auto) Baso # (Auto) Immature Gran # (Auto) PT 12.8 H INR 1.2 H APTT 33 H PTT Ratio 1.2 Sodium 131 L Potassium 4.9 Chloride 98 Carbon Dioxide 16 L Anion Gap 17 H BUN 99 H Creatinine 10.27 H* Est Cr Clr Drug Dosing 6.2 eGFR 3.80 BUN/Creatinine Ratio 9.6 L Glucose 471 H* POC Glucose 276 H Estimat Average Glucose Hemoglobin A1c Calcium 8.2 L Magnesium Total Bilirubin 0.5 AST 29 ALT 23 Alkaline Phosphatase 151 H Troponin I High Sens 17.1 H Total Protein 6.3 Albumin 3.5 Globulin 2.8 Albumin/Globulin Ratio 1.3 POC Stool Occult Blood Positive A Blood Type AB Positive Antibody Screen NEGATIVE 07/08/25 07/08/25 07/08/25 05:09 05:20 13:09 WBC 8.46 RBC 2.90 L Hgb 9.3 L 9.3 L Hct 28.5 L 27.3 L MCV 98.3 MCH 32.1 MCHC 32.6 RDW Std Deviation 56.6 H RDW Coeff of Leatha 15.7 H Plt Count 159 MPV 11.4 Immature Gran % (Auto) 0.4 Neut % (Auto) 64.0 Lymph % (Auto) 19.6 [place] % (Auto) 10.5 Eos % (Auto) 4.3 Baso % (Auto) 1.2 Neut # (Auto) 5.42 Lymph # (Auto) 1.66 [place] # (Auto) 0.89 H Eos # (Auto) 0.36 Baso # (Auto) 0.10 Immature Gran # (Auto) 0.03 PT INR APTT PTT Ratio Sodium 134 L Potassium 4.7 Chloride 100 Carbon Dioxide 17 L Anion Gap 17 H BUN 102 H Creatinine 10.40 H* Est Cr Clr Drug Dosing 6.1 eGFR 3.74 BUN/Creatinine Ratio 9.8 L Glucose 72 POC Glucose 72 Estimat Average Glucose 197 Hemoglobin A1c 8.5 H Calcium 8.6 Magnesium 2.7 H Total Bilirubin AST ALT Alkaline Phosphatase Troponin I High Sens Total Protein Albumin Globulin Albumin/Globulin Ratio POC Stool Occult Blood Blood Type Antibody Screen 07/08/25 07/08/25 07/08/25 15:41 15:41 17:43 WBC RBC Hgb Hct MCV MCH MCHC RDW Std Deviation RDW Coeff of Leatha Plt Count MPV Immature Gran % (Auto) Neut % (Auto) Lymph % (Auto) [place] % (Auto) Eos % (Auto) Baso % (Auto) Neut # (Auto) Lymph # (Auto) [place] # (Auto) Eos # (Auto) Baso # (Auto) Immature Gran # (Auto) PT INR APTT PTT Ratio Sodium Potassium Chloride Carbon Dioxide Anion Gap BUN Creatinine Est Cr Clr Drug Dosing eGFR BUN/Creatinine Ratio Glucose POC Glucose 67 L* 78 301 H* Estimat Average Glucose Hemoglobin A1c Calcium Magnesium Total Bilirubin AST ALT Alkaline Phosphatase Troponin I High Sens Total Protein Albumin Globulin Albumin/Globulin Ratio POC Stool Occult Blood Blood Type Antibody Screen 07/08/25 07/08/25 07/08/25 17:45 17:47 18:28 WBC RBC Hgb 9.0 L Hct 27.9 L MCV MCH MCHC RDW Std Deviation RDW Coeff of Leatha Plt Count MPV Immature Gran % (Auto) Neut % (Auto) Lymph % (Auto) [place] % (Auto) Eos % (Auto) Baso % (Auto) Neut # (Auto) Lymph # (Auto) [place] # (Auto) Eos # (Auto) Baso # (Auto) Immature Gran # (Auto) PT INR APTT PTT Ratio Sodium Potassium Chloride Carbon Dioxide Anion Gap BUN Creatinine Est Cr Clr Drug Dosing eGFR BUN/Creatinine Ratio Glucose 249 H POC Glucose 266 H 290 H Estimat Average Glucose Hemoglobin A1c Calcium Magnesium Total Bilirubin AST ALT Alkaline Phosphatase Troponin I High Sens Total Protein Albumin Globulin Albumin/Globulin Ratio POC Stool Occult Blood Blood Type Antibody Screen 07/08/25 07/09/25 07/09/25 21:04 00:40 06:16 WBC RBC Hgb 9.2 L Hct 28.7 L MCV MCH MCHC RDW Std Deviation RDW Coeff of Leatha Plt Count MPV Immature Gran % (Auto) Neut % (Auto) Lymph % (Auto) [place] % (Auto) Eos % (Auto) Baso % (Auto) Neut # (Auto) Lymph # (Auto) [place] # (Auto) Eos # (Auto) Baso # (Auto) Immature Gran # (Auto) PT INR APTT PTT Ratio Sodium Potassium Chloride Carbon Dioxide Anion Gap BUN Creatinine Est Cr Clr Drug Dosing eGFR BUN/Creatinine Ratio Glucose POC Glucose 214 H 128 H Estimat Average Glucose Hemoglobin A1c Calcium Magnesium Total Bilirubin AST ALT Alkaline Phosphatase Troponin I High Sens Total Protein Albumin Globulin Albumin/Globulin Ratio POC Stool Occult Blood Blood Type Antibody Screen PG Care Time/CCT Total # of Minutes Spent Total Time Spent with Patient: Total time spent is greater than 50% in coordination of care (as documented) at patient's floor/unit and/or counseling patient: Coding Level of Care Code 09935 SUB INP/OBS CARE 2/35MIN Diagnoses Rectal bleeding K62.5
--- NOTE | 2025-07-09 07:25 | Anesthesiology Consultation ---
Date of Service July 09, 2025 Assessment & Plan (1) Encounter for pre-operative examination: Chart Review Chart Review: Acceptable Risk for Surgery History Surgery Operation Date: 07/09/25 07:30 Proposed Procedures p Colonoscopy - Estuardo Mena MD Height/Weight Height: 5 ft 3 in Weight: 102.3 kg Allergies Allergy/AdvReac Type Severity Reaction Status Date / Time CHIDI Inhibitors AdvReac Intermediate COUGH Verified 07/07/25 23:26 Medications Home Medications Medication Instructions Recorded Confirmed Last Taken insulin lispro 100 unit/mL See Rx Instructions .Route .COMPLEX 07/07/24 07/07/25 11/03/24 subcutaneous solution acetaminophen 325 mg tablet 650 mg PO Q6H PRN PAIN/FEVER 10/04/24 07/07/25 Unknown (Tylenol) atorvastatin 40 mg tablet 40 mg PO QAM 10/04/24 07/07/25 07/07/25 biotin 10 mg tablet 10 mg PO DAILY 10/04/24 07/07/25 07/07/25 cholecalciferol (vitamin D3) 125 125 mcg PO DAILY 10/04/24 07/07/25 07/07/25 mcg (5,000 unit) tablet (Vitamin D3) colestipol 1 gram tablet 4 g PO .DAILY@1500 10/04/24 07/07/25 07/06/25 gabapentin 300 mg capsule 300 mg PO BID 10/04/24 07/07/25 07/07/25 08:00 insulin glargine 100 unit/mL (3 10 unit subcut QAM 10/04/24 07/07/25 07/07/25 mL) subcutaneous pen (Lantus Solostar U-100 Insulin) levothyroxine 100 mcg tablet 100 mcg PO DAILYBB 10/04/24 07/07/25 07/07/25 omeprazole 20 mg capsule,delayed 20 mg PO DAILY 10/04/24 07/07/25 07/07/25 release pediatric multivitamin 1 tab PO BID 10/04/24 07/07/25 07/07/25 08:00 midodrine 5 mg tablet 5 mg PO DIRECTED 11/03/24 07/07/25 11/03/24 metoprolol succinate 25 mg 25 mg PO QAM #30 tabs 11/13/24 07/07/25 07/07/25 tablet,extended release 24 hr Magic Swizzle 15 ml mucous membrane TID 07/07/25 07/07/25 07/07/25 08:00 albuterol sulfate 2.5 mg/3 mL 2.5 mg inhalation DIRECTED PRN 07/07/25 07/07/25 Unknown (0.083 %) solution for nebulization Shortness Of Breath Or Wheezing amiodarone 200 mg tablet 200 mg PO QAM 07/07/25 07/07/25 07/07/25 apixaban 5 mg tablet (Eliquis) 5 mg PO BID 07/07/25 07/07/25 07/07/25 08:00 buspirone 10 mg tablet 10 mg PO BID 07/07/25 07/07/25 07/07/25 08:00 citalopram 20 mg tablet 20 mg PO DAILY 07/07/25 07/07/25 07/07/25 [id number](pork)24,000-76,000-120,000 1 cap PO QID 07/07/25 07/07/25 07/07/25 08:00 unit capsule,del rel (Creon) oxycodone 5 mg tablet 5 mg PO Q6H PRN Severe Pain (Scale 07/07/25 07/07/25 Unknown Score 7-10) sevelamer carbonate 800 mg tablet See Rx Instructions .Route .COMPLEX 07/07/25 07/07/25 Unknown (Renvela) Active Medications Generic Name Dose Route Start Last Admin Trade Name Freq PRN Reason Stop Dose Admin Acetaminophen 650 mg 07/08/25 04:15 07/08/25 05:16 Acetaminophen 325 Mg Tab PO 08/07/25 04:14 650 mg Q4H PRN Administration Pain or Fever Amiodarone HCl 200 mg 07/08/25 09:00 07/08/25 08:58 Amiodarone 200 Mg Tab PO 08/07/25 08:59 200 mg QAM PAULA Administration Lipase/Protease/Amylase 2 cap 07/08/25 07:30 07/08/25 21:30 Pancreaze (Lipase 10,500u) Cap PO 08/07/25 07:29 2 cap ACHS PAULA Administration Atorvastatin Calcium 40 mg 07/08/25 09:00 07/08/25 08:59 Atorvastatin 40 Mg Tab PO 08/07/25 08:59 Not Given QAM PAULA Buspirone HCl 10 mg 07/08/25 09:00 07/08/25 21:31 Buspirone 5 Mg Tab PO 08/07/25 08:59 10 mg BID PAULA Administration Citalopram Hydrobromide 20 mg 07/08/25 09:00 07/08/25 08:58 Citalopram 20 Mg Tab PO 08/07/25 08:59 20 mg DAILY PAULA Administration Gabapentin 300 mg 07/08/25 09:00 07/08/25 21:31 Gabapentin 300 Mg Cap PO 08/07/25 08:59 300 mg BID PAULA Administration Pantoprazole Sodium 40 mg in 10 mls @ 5 mls/min 07/08/25 09:00 07/08/25 21:30 Protonix IV 08/07/25 08:59 5 mls/min BID PAULA Administration Insulin Aspart 0 units 07/09/25 06:00 07/09/25 06:21 Insulin Aspart Per Unit Charge SC 08/08/25 05:59 Not Given Q6 PAULA Insulin Glargine 5 units 07/08/25 09:00 07/08/25 08:59 Lantus Per Unit Charge SQ 08/07/25 08:59 Not Given DAILY PAULA Levothyroxine Sodium 100 mcg 07/08/25 06:30 07/09/25 06:22 Levothyroxine Sodium 100 Mcg Tablet PO 08/07/25 06:29 100 mcg DAILYBB PAULA Administration Metoprolol Succinate 25 mg 07/08/25 09:00 07/08/25 08:58 Metoprolol Succ 25mg Ext Rel Tab PO 08/07/25 08:59 25 mg QAM PAULA Administration Midodrine 5 mg 07/08/25 09:00 07/08/25 10:19 Midodrine Hcl 2.5 Mg Tab PO 08/07/25 08:59 5 mg MoWeFr@0900,1700 PRN Administration dialysis/see instructions Multivitamins/Folic Acid/Vitamin C 1 tab 07/08/25 09:00 07/08/25 21:33 Multivitamin Chewable Tab PO 08/07/25 08:59 1 tab BID PAULA Administration Polyethylene Glycol/Electrolytes 16 dose 07/08/25 18:30 07/08/25 18:53 Lavage Solution 4000ml PO 07/09/25 18:29 16 dose TODAY@1830 PAULA Administration Sevelamer Carbonate 2,400 mg 07/08/25 07:30 07/08/25 08:57 Sevelamer Carbonate 800 Mg Tab PO 08/07/25 07:29 Not Given QDB PAULA Sevelamer Carbonate 3,200 mg 07/08/25 16:30 07/08/25 17:49 Sevelamer Carbonate 800 Mg Tab PO 08/07/25 16:29 Not Given QDD PAULA Vitamin D 125 mcg 07/08/25 09:00 07/08/25 08:58 Cholecalciferol 125 Mcg (5,000 Units) Tab PO 08/07/25 08:59 125 mcg DAILY PAULA Administration Past Medical History Medical History (Updated 07/09/25 @ 07:21 by Goyo Lambert MD) Acute on chronic heart failure with preserved ejection fraction Insulin-requiring or dependent type II diabetes mellitus Aortic stenosis, mild Ventricular tachycardia ESRD (end stage renal disease) on dialysis Peripheral neuropathy bilateral legs/feet Anxiety History of anesthesia reaction woke up during hysterectomy in 1995 Hiatal hernia Osteoarthritis Degenerative disc disease Chronic back pain Post traumatic stress disorder GERD (gastroesophageal reflux disease) Past Family History Family History Other Colonic polyp GERD (gastroesophageal reflux disease) No family history of adverse response to anesthesia Past Surgical History Surgical History History of implantable cardiac defibrillator (ICD) History of colonoscopy S/P left knee arthroscopy S/P right knee arthroscopy H/O radical excision of skin lesion melanoma S/P cardiac pacemaker procedure medtronic device, last checked ~2 months ago. Follows with Dr Stevenson S/P arteriovenous (AV) fistula creation Right arm History of vitrectomy History of cataract surgery bilateral History of adenoidectomy History of tonsillectomy H/O umbilical hernia repair open (~November 2022 [facility]) --> went to [facility] for rehab therapy for about 2 weeks. S/P dialysis catheter insertion right side of chest (since removed) S/P [place]-BSO H/O hernia repair Hx of gastric bypass History of cholecystectomy Hx of cardiac cath "2012, negative for CAD " Social History Smoking Status: Never smoker tobacco type: cigarettes Do You Dip or Chew Tobacco: No Hx Alcohol Use: No Alcohol type: wine alcohol intake frequency: holidays/special occasions only Hx Substance Use: No substance use type: does not use Physical Exam Vital Signs Last Vital Signs Temp 36.5 C 07/09/25 03:06 Pulse 76 07/09/25 03:06 Resp 20 07/09/25 03:06 BP 132/78 07/09/25 03:06 Pulse Ox 96 07/09/25 03:06 O2 Del Method Room Air 07/09/25 03:06 Testing Laboratory Results 07/09/25 00:40 07/08/25 18:28 PT 12.8 Seconds (9.0-12.0) H 07/07/25 18:15 INR 1.2 (0.9-1.1) H 07/07/25 18:15 APTT 33 Seconds (21-31) H 07/07/25 18:15 Hemoglobin A1c 8.5 % (4.5-5.6) H 07/08/25 05:09 Blood Type AB Positive 07/07/25 18:15 Antibody Screen NEGATIVE 07/07/25 18:15 07/09/25 07/08/25 06:16 21:04 POC Glucose 128 H 214 H Laboratory Tests 07/07/25 07/08/25 07/08/25 18:15 05:09 05:09 INR 1.2 H Potassium 4.7 Creatinine 10.40 H* Hemoglobin A1c 8.5 H Echocardiogram Date: 11/04/24 EF: 55-60% LV Function: normal Valvular Disease: + (mild) and + MS (moderate) RV sys 60mmHg
[2025-07-09 07:32] LABS: Hematocrit (blood only) 27.9 % (37.0-47.0); Hemoglobin 9.2 g/dL (12.0-16.0); Mean Corpuscular Hemoglobin 32.2 pg (25.0-34.0); Mean Corpuscular Volume 97.6 fL (80.0-100.0); Platelet Count 163 K/uL (130-400); RDW Standard Deviation 56.8 fL (36.4-46.3); Red Blood Count 2.86 M/uL (4.20-5.40); White Blood Count 7.04 K/ul (4.8-10.8)
[2025-07-09 07:54] LABS: Anion Gap 16.0 (3-11); Blood Urea Nitrogen 35.0 mg/dl (6-23); Calcium 9.3 mg/dl (8.6-10.3); Carbon Dioxide 24.0 mmol/L (21-32); Chloride 96.0 mmol/L (98-107); Creatinine Clr Calc Pharmacy 11.0 ml/min; Glucose 147.0 mg/dl (70-99(Fasting)); Potassium 4.2 mmol/L (3.5-5.1); Sodium 136.0 mmol/L (136-145)
[2025-07-09] MEDS ORDERED: PHENYLEPHRINE 100MCG/ML 5ML SYR ONE (08:11)
--- NOTE | 2025-07-09 08:24 | GI REPORT ---
[facility] Patient: TAMARA EAGLE : 1960 Sex at : Female Age: 64 Years Procedure: Colonoscopy Date: 07/09/2025 Attending Physician: Estuardo Mena MD Referring MD: Referred Self; April Blair MD Indications: - Evaluation of unexplained GI bleeding presenting with Hematochezia Medications: - Monitored Anesthesia Care Complications: - No immediate complications. Procedure: - Prior to the procedure, a History and Physical was performed, and patient medications and allergies were reviewed. The patient's tolerance of previous anesthesia was also reviewed. The risks and benefits of the procedure and the sedation options and risks were discussed with the patient. All questions were answered, and informed consent was obtained. [Anticoagulant Agents] [Days Prior to Procedure]. [ASA Grade]. After reviewing the risks and benefits, the patient was deemed in satisfactory condition to undergo the procedure. - The adult colonoscope was introduced through the anus and advanced to the terminal ileum, with identification of the appendiceal orifice and ileocecal valve. - The colonoscopy was performed without difficulty. - The patient tolerated the procedure well. - The quality of the bowel preparation was [Prep Quality]. - [Anatomical Structures] photographed. Findings: - Scattered [Opening] diverticula were found in the entire colon. - The exam was otherwise without abnormality. - Oozing blood was seen in the ascending colon, secondary to previous polypectomy procedure. To prevent bleeding after the polypectomy, one hemostatic clip was successfully placed. There was no bleeding during, or at the end, of the procedure. - A diminutive (1-3 mm) polyp was found in the rectum. Polyp not removed due to recent bleeding. - The terminal ileum appeared normal. - No other significant abnormalities were identified in a careful examination of the remainder of the colon. Impression: - Diverticulosis in the entire examined colon. - The examination was otherwise normal. - Bleeding in the ascending colon secondary to previous polypectomy. Clip was placed. - One diminutive (1-3 mm) polyp in the rectum. Repeat colonoscopy within the next year to remove diminutive polyp. - The examined portion of the ileum was normal. - No specimens collected. Recommendation: - Resume previous diet. - Repeat colonoscopy in 1 year for adenoma surveillance. - Patient has a contact number available for emergencies. The signs and symptoms of potential delayed complications were discussed with the patient. Return to normal activities tomorrow. Written discharge instructions were provided to the patient. Procedure Code(s): - 11816, Colonoscopy, flexible; diagnostic, including collection of specimen(s) by brushing or washing, when performed (separate procedure) Diagnosis Code(s): - K92.1, Melena (includes Hematochezia) - K91.840, Postprocedural hemorrhage of a digestive system organ or structure following a digestive system procedure - D12.8, Benign neoplasm of rectum - K57.30, Diverticulosis of large intestine without perforation or abscess without bleeding CPT(R) - 2025 copyright [employer]. All Rights Reserved. The CPT codes, CCI edits and ICD codes generated are intended as suggestions and were generated based on input data. These codes are preliminary and upon wood lathe operator review may be revised to meet current compliance and payer requirements. The provider is responsible for the final determination of appropriate codes, and modifiers. Estuardo Mena MD This document has been electronically signed. Note Initiated:07/09/2025 Note Completed:07/09/2025 8:23 AM [email or web address]\[email or web address]\[id number]
--- NOTE | 2025-07-09 09:18 | Anesthesiology Progress Note ---
Date of Service July 09, 2025 Anesthesia Post Procedure Vital Signs Vital Signs: Temp Pulse Pulse Pulse Pulse Resp BP 07/09/25 08:50 36.5 C 79 20 07/09/25 08:40 36.1 C L 76 14 07/09/25 08:30 75 15 07/09/25 08:20 36.7 C 76 13 07/09/25 03:06 36.5 C 76 20 07/08/25 23:31 76 07/08/25 22:40 36.6 C 78 18 07/08/25 19:35 36.6 C 75 18 07/08/25 16:01 36.6 C 84 16 07/08/25 15:58 77 07/08/25 14:56 77 18 07/08/25 13:55 36.7 C 81 07/08/25 13:30 77 89/54 L 07/08/25 13:00 78 89/52 L 07/08/25 12:30 75 103/51 L 07/08/25 12:00 76 100/55 L 07/08/25 11:30 77 95/57 L 07/08/25 11:00 75 110/59 L 07/08/25 10:30 77 90/61 L 07/08/25 10:00 75 91/60 L 07/08/25 09:46 76 96/65 L 07/08/25 09:46 76 96/65 L 07/08/25 09:40 36.6 C 83 BP Pulse Ox O2 Del Method O2 Flow Rate 07/09/25 08:50 103/69 93 Room Air 07/09/25 08:40 104/58 L 97 Room Air 07/09/25 08:30 109/60 97 Room Air 07/09/25 08:20 114/64 100 Oxymask 7 07/09/25 03:06 132/78 96 Room Air 07/08/25 23:31 07/08/25 22:40 142/79 H 98 Room Air 07/08/25 19:35 145/82 H 98 Room Air 07/08/25 16:01 112/68 94 Room Air 07/08/25 15:58 07/08/25 14:56 119/55 L 98 Room Air 07/08/25 13:55 98/58 L 07/08/25 13:30 07/08/25 13:00 07/08/25 12:30 07/08/25 12:00 07/08/25 11:30 07/08/25 11:00 07/08/25 10:30 07/08/25 10:00 07/08/25 09:46 07/08/25 09:46 07/08/25 09:40 Pain Intensity Abdomen: Pain Intensity: 2 Transfer of Care Handoff Completed per policy Notes Mental Status: alert / awake / arousable Patient Amnestic to Procedure: Yes Nausea / Vomiting: adequately controlled Pain: adequately controlled Airway Patency, RR, SpO2: stable & adequate BP & HR: stable & adequate Hydration State: stable & adequate Anesthetic Complications: no major complications apparent
--- NOTE | 2025-07-09 09:56 | History & Physical Bridge Note ---
Date of Service July 09, 2025 History & Physical Bridge Note Patient tolerated colonoscopy well. Found postpolypectomy bleeding site that was treated with an Endo Clip. No active bleeding noted. Can advance to regular diet. Can be discharged from GI standpoint.
--- NOTE | 2025-07-09 12:34 | Hospitalist Progress Note ---
Date of Service July 09, 2025 Assessment & Plan (1) GI (gastrointestinal bleed): Plan: 64-year-old female with past medical history significant for paroxysmal tachycardia, sick sinus syndrome status post DCP upgrade to ICD in September 2024 for syncope/nonsustained V. tach, history of A-fib, severe mitral regurgitation with mitral stenosis, mild aortic insufficiency/, chronic diastolic CHF, ESRD on hemodialysis, hypertension, hyperlipidemia, sleep apnea on CPAP, type 2 diabetes, chronic anemia, nonsustained SVT, pulmonary hypertension, diabetic gastroparesis, chronic hyponatremia, status post gastric bypass, melanoma recurrence, depression, History of endometrial cancer presents with rectal bleed. Patient had a right fistulogram at [facility] yesterday and on the way back she noticed to have rectal bleed. Patient says has ongoing rectal bleed since last 2 weeks but yesterday it was severe. Patient states still having rectal bleed currently. Has abdominal cramps. Does not make urine. Denies any chest pain. Has some shortness of breath on exertion. No headache. No runny nose or sore throat. No cough. Currently hemodynamics are okay. Lower GI bleed Post polypectomy bleed Colonoscopy on 06/08/2025: One 6 mm polyp in ascending colon removed. Medium size lipoma in the mid ascending colon. Mild diverticulosis in the sigmoid colon and in the descending colon. Internal hemorrhoids. Pathology of the polyp came back as tubular adenoma. Random colon biopsy no significant pathology findings. S/p Colonoscopy today which showed oozing blood in ascending colon due to previous polypectomy procedure. S/p one hemostatic clip. Other findings include one dimunitive 1-3mm polyp in rectum (not removed), diverticulosis Hb stable in 9s Monitor Hb Started diet. ESRD On hemodialysis Got HD yesterday Sick sinus syndrome Recent syncope/NSVT pacemaker upgraded to ICD On amiodarone A-fib On amiodarone, metoprolol succinate and Eliquis Continue to hold Eliquis for GI bleed Discussed with GI who recommends eliquis can be resumed on Friday Chronic diastolic CHF Severe MR with MS On dialysis Obstructive sleep apnea CPAP nightly Diabetes Continue lantus, ISS and monitor Nonobstructive CAD Continue statin and beta-griselda Depression and anxiety On buspirone, citalopram Hypothyroidism On Synthyroid DVT prophylaxis- SCDs for now Full code. I spent a total of 50 minutes coordinating, documenting and providing care for this patient excluding time spent in performance of separately billed services Admission and Anticipated Discharge Date Admission Date: July 08, 2025 Subjective Patient seen and examined Reports feeling better Had colonoscopy this AM. Reports small yellowish BM after colonoscopy Reports she still has some abdominal cramping but improving No other new complaints Physical Exam Constitutional: + well hydrated and + obese; no acute di stress Eyes: PERRL, conjunctivae normal, anicteric sclerae ENMT: external ear and nose normal, oropharynx normal Respiratory: normal respiratory effort, lungs clear to auscultation Cardiovascular: Rate/Rhythm: regular rate and regular rhythm Gastrointestinal (Abdomen): Inspection/Auscultation: abdomen normal to inspection and normal bowel sounds Percussion/Palpation: abdomen soft; abdomen nontender Musculoskeletal: No pedal edema RUE fistula Neurologic: PERRL, EOMI, accommodation nl, no face palsy, no dysarthria Psychiatric: A+Ox3, euthymic affect Results & Data Results & Data Vital Signs (Past 12 Hours) Vital Signs Temp Pulse Pulse Resp BP Pulse Ox O2 Del Method 07/09/25 09:50 77 20 106/65 97 Room Air 07/09/25 09:20 75 18 97/54 L 97 Room Air 07/09/25 09:05 75 20 99/55 L 97 Room Air 07/09/25 08:50 36.5 C 79 20 103/69 93 Room Air 07/09/25 08:40 36.1 C L 76 14 104/58 L 97 Room Air 07/09/25 08:30 75 15 109/60 97 Room Air 07/09/25 08:20 36.7 C 76 13 114/64 100 Oxymask 07/09/25 03:06 36.5 C 76 20 132/78 96 Room Air O2 Flow Rate 07/09/25 09:50 07/09/25 09:20 07/09/25 09:05 07/09/25 08:50 07/09/25 08:40 07/09/25 08:30 07/09/25 08:20 7 07/09/25 03:06 Laboratory Results Abnormal lab results 07/08/25 07/08/25 07/08/25 Range/Units 15:41 17:43 17:45 RBC (4.20-5.40) M/uL Hgb (12.0-16.0) g/dL Hct (37.0-47.0) % RDW Std Deviation (36.4-46.3) fL RDW Coeff of Leatha (11.5-14.5) % Chloride (98-107) mmol/L Anion Gap (3-11) BUN (6-23) mg/dl Creatinine (0.6-1.2) mg/dl BUN/Creatinine Ratio (10-20) Glucose (70-99(Fasting)) mg/dl POC Glucose 67 L* 301 H* 266 H (70-99) mg/dl 07/08/25 07/08/25 07/08/25 Range/Units 17:47 18:28 21:04 RBC (4.20-5.40) M/uL Hgb 9.0 L (12.0-16.0) g/dL Hct 27.9 L (37.0-47.0) % RDW Std Deviation (36.4-46.3) fL RDW Coeff of Leatha (11.5-14.5) % Chloride (98-107) mmol/L Anion Gap (3-11) BUN (6-23) mg/dl Creatinine (0.6-1.2) mg/dl BUN/Creatinine Ratio (-20) Glucose 249 H (70-99(Fasting)) mg/dl POC Glucose 290 H 214 H (70-99) mg/dl 07/09/25 07/09/25 07/09/25 Range/Units 00:40 06:16 07:13 RBC 2.86 L (4.20-5.40) M/uL Hgb 9.2 L 9.2 L (12.0-16.0) g/dL Hct 28.7 L 27.9 L (37.0-47.0) % RDW Std Deviation 56.8 H (36.4-46.3) fL RDW Coeff of Leatha 16.0 H (11.5-14.5) % Chloride 96 L (98-107) mmol/L Anion Gap 16 H (3-11) BUN 35 H D (6-23) mg/dl Creatinine 5.73 H* D (0.6-1.2) mg/dl BUN/Creatinine Ratio 6.1 L (10-20) Glucose 147 H (70-99(Fasting)) mg/dl POC Glucose 128 H (70-99) mg/dl 07/09/25 07/09/25 Range/Units 08:33 11:12 RBC (4.20-5.40) M/uL Hgb (12.0-16.0) g/dL Hct (37.0-47.0) % RDW Std Deviation (36.4-46.3) fL RDW Coeff of Leatha (11.5-14.5) % Chloride (98-107) mmol/L Anion Gap (3-11) BUN (6-23) mg/dl Creatinine (0.6-1.2) mg/dl BUN/Creatinine Ratio (10-20) Glucose (70-99(Fasting)) mg/dl POC Glucose 136 H 231 H (70-99) mg/dl
[2025-07-09] MEDS: MELATONIN 3 MG TAB PO PRN (20:38)
[2025-07-10 04:07] VITALS: RESP 18
[2025-07-10 06:43] LABS: Hematocrit (blood only) 26.8 % (37.0-47.0); Hemoglobin 8.8 g/dL (12.0-16.0); Mean Corpuscular Hemoglobin 32.2 pg (25.0-34.0); Mean Corpuscular Volume 98.2 fL (80.0-100.0); Platelet Count 162 K/uL (130-400); RDW Standard Deviation 55.7 fL (36.4-46.3); Red Blood Count 2.73 M/uL (4.20-5.40); White Blood Count 7.66 K/ul (4.8-10.8)
[2025-07-10 07:12] LABS: Anion Gap 14.0 (3-11); Blood Urea Nitrogen 47.0 mg/dl (6-23); Calcium 9.2 mg/dl (8.6-10.3); Carbon Dioxide 23.0 mmol/L (21-32); Chloride 96.0 mmol/L (98-107); Creatinine Clr Calc Pharmacy 9.4 ml/min; Glucose 93.0 mg/dl (70-99(Fasting)); Potassium 4.1 mmol/L (3.5-5.1); Sodium 133.0 mmol/L (136-145)
[2025-07-10 08:04] VITALS: O2SAT 95
--- NOTE | 2025-07-10 09:00 | Gastroenterology Progress Note ---
Date of Service July 10, 2025 Assessment & Plan (1) GI (gastrointestinal bleed): Plan: Post polypectomy bleed now resolved status post endoscopic therapy. Okay for discharge from GI standpoint. Will follow-up with us in approximately 6 months for repeat colonoscopy and removal of remaining diminutive polyp. Admission and Anticipated Discharge Date Admission Date: July 08, 2025 Subjective Feels well no evidence of bleeding no abdominal pain no shortness of breath no chest pain Physical Exam Physical Exam: No acute distress Respiratory rate regular Cardiac rhythm regular Abdomen soft nontender Results & Data Results & Data Vital Signs (Past 12 Hours) Vital Signs Temp Pulse Pulse Resp BP Pulse Ox O2 Del Method 07/10/25 08:02 36.7 C 78 18 92/55 L 95 Room Air 07/10/25 04:05 36.2 C L 75 18 102/69 97 Room Air, CPAP 07/10/25 02:54 76 14 96 07/09/25 23:41 36.7 C 77 16 105/69 93 Room Air, CPAP 07/09/25 23:06 87 22 94 07/09/25 22:57 91 H Laboratory Results Laboratory Results - last 48 hr 07/08/25 07/08/25 07/08/25 13:09 15:41 15:41 WBC RBC Hgb 9.3 L Hct 27.3 L MCV MCH MCHC RDW Std Deviation RDW Coeff of Leatha Plt Count MPV Sodium Potassium Chloride Carbon Dioxide Anion Gap BUN Creatinine Est Cr Clr Drug Dosing eGFR BUN/Creatinine Ratio Glucose POC Glucose 67 L* 78 Calcium 07/08/25 07/08/25 07/08/25 17:43 17:45 17:47 WBC RBC Hgb Hct MCV MCH MCHC RDW Std Deviation RDW Coeff of Leatha Plt Count MPV Sodium Potassium Chloride Carbon Dioxide Anion Gap BUN Creatinine Est Cr Clr Drug Dosing eGFR BUN/Creatinine Ratio Glucose POC Glucose 301 H* 266 H 290 H Calcium 07/08/25 07/08/25 07/09/25 18:28 21:04 00:40 WBC RBC Hgb 9.0 L 9.2 L Hct 27.9 L 28.7 L MCV MCH MCHC RDW Std Deviation RDW Coeff of Leatha Plt Count MPV Sodium Potassium Chloride Carbon Dioxide Anion Gap BUN Creatinine Est Cr Clr Drug Dosing eGFR BUN/Creatinine Ratio Glucose 249 H POC Glucose 214 H Calcium 07/09/25 07/09/2525 06:16 07:13 08:33 WBC 7.04 RBC 2.86 L Hgb 9.2 L Hct 27.9 L MCV 97.6 MCH 32.2 MCHC 33.0 RDW Std Deviation 56.8 H RDW Coeff of Leatha 16.0 H Plt Count 163 MPV 11.1 Sodium 136 Potassium 4.2 Chloride 96 L Carbon Dioxide 24 Anion Gap 16 H BUN 35 H D Creatinine 5.73 H* D Est Cr Clr Drug Dosing 11.0 eGFR 7.65 BUN/Creatinine Ratio 6.1 L Glucose 147 H POC Glucose 128 H 136 H Calcium 9.3 07/09/25 07/09/25 07/09/25 11:12 16:20 20:09 WBC RBC Hgb Hct MCV MCH MCHC RDW Std Deviation RDW Coeff of Leatha Plt Count MPV Sodium Potassium Chloride Carbon Dioxide Anion Gap BUN Creatinine Est Cr Clr Drug Dosing eGFR BUN/Creatinine Ratio Glucose POC Glucose 231 H 221 H 313 H* Calcium 07/10/25 07/10/25 05:36 07:42 WBC 7.66 RBC 2.73 L Hgb 8.8 L Hct 26.8 L MCV 98.2 MCH 32.2 MCHC 32.8 RDW Std Deviation 55.7 H RDW Coeff of Leatha 15.6 H Plt Count 162 MPV 11.5 Sodium 133 L Potassium 4.1 Chloride 96 L Carbon Dioxide 23 Anion Gap 14 H BUN 47 H Creatinine 6.76 H* D Est Cr Clr Drug Dosing 9.4 eGFR 6.27 BUN/Creatinine Ratio 7.0 L Glucose 93 POC Glucose 110 H Calcium 9.2 PG Care Time/CCT Total # of Minutes Spent Total Time Spent with Patient: Total time spent is greater than 50% in coordination of care (as documented) at patient's floor/unit and/or counseling patient: Coding Level of Care Code 22641 SUB INP/OBS CARE 08/14MIN Diagnoses GI (gastrointestinal bleed) K92.2
[2025-07-10] MEDS: MIDODRINE HCL 2.5 MG TAB PO STA (09:32)
[2025-07-10] MEDS: EPOETIN ALFA 10,000 UNITS/ML VIAL IV ONE (09:32)
[2025-07-10 10:19] VITALS: TEMP 97.9
--- NOTE | 2025-07-10 10:42 | Discharge Summary ---
Date of Service July 10, 2025 Admission HPI Per Admitting Provider 64-year-old female with past medical history significant for paroxysmal tachycardia, sick sinus syndrome status post DCP upgrade to ICD in September 2024 for syncope/nonsustained V. tach, history of A-fib, severe mitral regurgitation with mitral stenosis, mild aortic insufficiency/, chronic diastolic CHF, ESRD on hemodialysis, hypertension, hyperlipidemia, sleep apnea on CPAP, type 2 diabetes, chronic anemia, nonsustained SVT, pulmonary hypertension, diabetic gastroparesis, chronic hyponatremia, status post gastric bypass, melanoma recurrence, depression, History of endometrial cancer presents with rectal bleed . Patient had a right fistulogram at [facility] yesterday and on the way back she noticed to have rectal bleed. Patient says has ongoing rectal bleed since last 2 weeks but yesterday it was severe. Patient states still having rectal bleed currently. Has abdominal cramps. Does not make urine. Denies any chest pain. Has some shortness of breath on exertion. No headache. No runny nose or sore throat. No cough. Currently hemodynamics are okay. Past med history. As mentioned above. Past surgical history. Abdominal wall hernia repair. Breast biopsy. Colonoscopy. Left heart catheterization. EGD. Status post biventricular defibrillator. Laparoscopic biopsy of liver. Laparoscopic gastric bypass Chente-en-Y. Laparoscopic cholecystectomy. Breast biopsy. Right knee arthr oscopy. Incisional hernia repair. Revision of gastrojejunal anastomosis. Excision of the malignant lesion over trunk/arm. Total abdominal hysterectomy with removal of tubes. Social history. . No smoking. No alcohol use. No drug use. Family history. Mother had breast cancer. Hypertension. Ovarian cancer. Father had stroke. Heart disorder. [place]. Paternal aunt had breast cancer. Paternal cousin had breast cancer. Maternal grandmother had colon cancer. Maternal grandfather had diabetes. Paternal grandfather had diabetes. Paternal grandmother had diabetes. Sister had CAD with PCI in 50s. Admission Exam Per Admitting Provider General- Not in distress. Head- atraumatic Eyes- PERRL. ENT- oropharynx clear Neck- supple, no JVD. Lungs- clear to auscultation no wheezing or crackles. Heart- regular rhythm; no murmur, no gallop. Abdomen- normal bowel sounds, soft, nontender, no distension. Extremities- no pretibial edema, no erythema seen Neuro- alert, oriented PERRL, no facial palsy; no dysarthria; moves extremities Principal Diagnosis Lower Gastrointestinal bleeding Discharge Exam Constitutional + well hydrated and + obese; no acute distress Eyes PERRL, conjunctivae normal, anicteric sclerae ENMT external ear and nose normal, oropharynx normal Respiratory normal respiratory effort, lungs clear to auscultation Cardiovascular Rate/Rhythm: regular rate and regular rhythm Gastrointestinal (Abdomen) Inspection/Auscultation: abdomen normal to inspection and normal bowel sounds Percussion/Palpation: abdomen soft; abdomen nontender Neurologic PERRL, EOMI, accommodation nl, no face palsy, no dysarthria Psychiatric A+Ox3, euthymic affect Discharge Data Allergies Allergy/AdvReac Type Severity Reaction Status Date / Time CHIDI Inhibitors AdvReac Intermediate COUGH Verified 07/07/25 23:26 Consultations 07/07/25 23:09 ED Decision to Admit Stat 07/08/25 08:00 Consult Gastroenterology Routine Consult Nephrology Routine Procedures Performed Operation Date: 07/09/25 07:30 Actual Procedures p Colonoscopy(Not Applicable) - Estuardo Mena MD Ordered Studies 07/07/25 19:06 CT abd pelvis IV con only Stat Hospital Course (1) GI (gastrointestinal bleed): 64-year-old female with past medical history significant for paroxysmal tachycardia, sick sinus syndrome status post DCP upgrade to ICD in September 2024 for syncope/nonsustained V. tach, history of A-fib, severe mitral regurgitation with mitral stenosis, mild aortic insufficiency/, chronic diastolic CHF, ESRD on hemodialysis, hypertension, hyperlipidemia, sleep apnea on CPAP, type 2 diabetes, chronic anemia, nonsustained SVT, pulmonary hypertension, diabetic gastroparesis, chronic hyponatremia, status post gastric bypass, melanoma recurrence, depression, History of endometrial cancer presents with rectal bleed. Patient had a right fistulogram at [facility] yesterday and on the way back she noticed to have rectal bleed. Patient says has ongoing rectal bleed since last 2 weeks but yesterday it was severe. Patient states still having rectal bleed currently. Has abdominal cramps. Does not make urine. Denies any chest pain. Has some shortness of breath on exertion. No headache. No runny nose or sore throat. No cough. Currently hemodynamics are okay. Lower GI bleed Post polypectomy bleed Colonoscopy on 06/08/2025: One 6 mm polyp in ascending colon removed. Medium size lipoma in the mid ascending colon. Mild diverticulosis in the sigmoid colon and in the descending colon. Internal hemorrhoids. Pathology of the polyp came back as tubular adenoma. Random colon biopsy no significant pathology findings. S/p Colonoscopy 07/09/25 which showed oozing blood in ascending colon due to previous polypectomy procedure. S/p one hemostatic clip. Other findings include one dimunitive 1-3mm polyp in rectum (not removed), diverticulosis Hb stable Reports brown stool today Abd cramping resolved ESRD On hemodialysis Got HD while inpatient. A-fib On amiodarone, metoprolol succinate and Eliquis GI recommends eliquis can be resumed on Friday07/11/25 Patient to continue other medication for chronic medical problems Total Time Total Time Spent Total Time Spent (In Minutes): 35 Total Time Includes: Examination of the Patient, Discharge Planning and Medication Reconciliation Discharge Plan Discharge Items Patient Disposition: Home - Self-Care Reason For Visit: RECTAL BLEED Discharge Diagnosis: Lower Gastrointestinal bleeding Condition on Discharge: Good Activity: Resume your previous activity Non-emergency contact: Primary Care Provider Call non-emergency contact if: you have any medication questions and your symptoms worsen Follow-up/Referrals: Luis Fernando Rojas MD [Primary Care Provider] - Diet: Carb Consistent or DM2 and Dialysis Renal Addtl Attending Provider Instructions: Mrs Irvin You were hospitalized and managed for the above listed diagnosis. You had colonoscopy and clip placed at previous polypectomy site. Your bleeding has resolved You can resume your eliquis on Friday07/11/25 Please ensure follow up with your Family doctor and other specialist. It was a pleasure taking care of you Pending Studies at Discharge: No Stand-Alone Forms: My [employer], Smoking Cessation Medications and DC Order Prescriptions: Continued biotin 10 mg Tablet 10 mg PO DAILY acetaminophen [Tylenol] 325 mg Tablet 650 mg PO Q6H PRN (Reason: PAIN/FEVER) pediatric multivitamin Tablet,Chewable 1 tab PO BID gabapentin 300 mg Capsule 300 mg PO BID omeprazole 20 mg Capsule,Delayed Release(Dr/Ec) 20 mg PO DAILY colestipol 1 gram Tablet 4 g PO .DAILY@1500 cholecalciferol (vitamin D3) [Vitamin D3] 125 mcg (5,000 unit) Tablet 125 mcg PO DAILY atorvastatin 40 mg tablet 40 mg PO QAM levothyroxine 100 mcg tablet 100 mcg PO DAILYBB insulin glargine [Lantus Solostar U-100 Insulin] 100 unit/mL (3 mL) insulin pen 10 unit SUBCUT QAM insulin lispro 100 unit/mL solution See Rx Instructions .ROUTE .COMPLEX Rx Instructions: TAKES 12 UNITS WITH BREAKFAST AND LUNCH, THEN 16 UNITS WITH SUPPER. PLUS SLIDING SCALE IF NEEDED. midodrine 5 mg tablet 5 mg PO DIRECTED Rx Instructions: TAKE 5mg BY MOUTH ONCE DAILY NEEDED 30 MINUTES PRIOR TO DIALYSIS AND 5mg [facility] THROUGH. Mon/Fri/Fri metoprolol succinate 25 mg Tablet Extended Release 24 Hr 25 mg PO QAM Qty: 30 0RF albuterol sulfate 2.5 mg /3 mL (0.083 %) Solution For Nebulization 2.5 mg INHALATION DIRECTED PRN (Reason: Shortness Of Breath Or Wheezing) citalopram 20 mg Tablet 20 mg PO DAILY buspirone 10 mg tablet 10 mg PO BID oxycodone 5 mg Tablet 5 mg PO Q6H PRN (Reason: Severe Pain (Scale Score 7-10)) sevelamer carbonate [Renvela] 800 mg Tablet See Rx Instructions .ROUTE .COMPLEX Rx Instructions: TAKES 2,400 MG WITH BREAKFAST, THEN 3,200 MG WITH SUPPER, TAKES 1,600 MG WITH SNACKS. Creon 24,000-76,000 -120,000 unit Capsule,Delayed Release(Dr/Ec) 1 cap PO QID Rx Instructions: administer with meals and/or snacks Magic Swizzle 15 ml mucous membrane TID amiodarone 200 mg tablet 200 mg PO QAM Held Eliquis 5 mg Tablet 5 mg PO BID Hold Instructions: Resume on 07/11/25. Discharge Orders: Discharge Order (Routine); Ordered 07/10/25 Ordered By: April Looney/Other Patient Handouts: High Blood Sugar (Hyperglycemia), Managing Type 2 Diabetes Admission Data Admit Date/Time: 07/08/25 03:34 Attending Provider: April Blair I. Admit Provider: Song English Primary Care Provider: Luis Fernando Rojas Other Providers: Song English; Kimani Garland; Clare Donaldson Other Interventions: Discharge Summary Assessment (RN) Last Done: 07/10/25 11:11
[2025-07-10] MEDS: HEPARIN 100 UNIT/ML 5ML FLUSH FLUSH PRN (14:40)
[2025-07-10 14:58] VITALS: BP 106/56; PULSE 68
== END 2025-07-10 15:06 | disposition home or self-care (01) | DRG 377 ==
LOC: ED 17:28 → EDINP 07-08 03:34 → 2S 07-08 04:16